=== PATIENT | female | born 1940 | race Caucasian/White ===

== ENCOUNTER 2017-03-08 14:58 | Emergency (ER) | payer MEDICARE ==
[~2017-03-08] VITALS: Ht 160 cm; Wt 56.7 kg
[~2017-03-08 14:58] MED LIST: ACET-168 PO; ACET325T38 PO; APIX5TAB PO; ASPI-983 PO; CALC10009 PO; CEFP500T4 PO; CLON0.5T3 PO; CLON1TAB3; CRAN250C2 PO; DOCU100C37 PO; ESOM40CA52 PO; FLAX100011 PO; HYDR-3812 PO; IBUP-30 PO; KLONOPIN; LISI-556 PO; METO-270 PO; METOPROLOL; MTP25TSR; MULT-974 PO; NEXIUM; NF-ESOM40C; NF-ESOM40C PO; ONDAN4ODT PO; ONDN4T PO; POLY17PO23 PO; PRD20T PO; PRIM1POW MC; PRIM50TA PO; PRM25T; PROP40TA5 PO; SERT100T; SERT100T8 PO; SERT50TA PO; SIMV40TA2 PO; SOLI5TAB4 PO; SUCR1TAB PO; SUCR1TAB36 PO; TRIA5PAS3 TOP; TYLENOL; [UNRECOGNIZED DRUG - OTHER]; [UNRECOGNIZED DRUG - OTHER]; tylenol pm
--- NOTE | 2017-03-08 16:07 | ED Hip Pain/Injury ---
General Chief Complaint: Hip/Pelvic Problems Stated Complaint: BOTH HIP PAIN Nursing Triage Note: c/o bilateral hip and back pain. Hx of possible constipation. Pt has a long history of psychiatric illness and has had a recent regression. States she hasn't been eating or taking her medicines. Source: patient Exam Limitations: no limitations History of Present Illness Time seen by provider: 16:06 Initial Comments To ER with bilateral hip pain, left greater than right, possible constipation. Family states that she's not been getting around well or taking her psychiatric medications as she should be. She was at [facility] from [facility] after not taking her psychiatric medications for about 3 weeks at that time. One of her son states that she has not been taking her medications as she should be, she is taking them but somewhat intermittently. Timing/Duration: constant Severity: moderate Allergies and Home Medications Allergies Coded Allergies: morphine (Verified Allergy, Unknown, 04/28/16) can take hydrocodone per pt Home Medications Acetaminophen 500 Mg Tablet, 500 MG PO Q4H PRN for PAIN/FEVER, (Reported) Apixaban 5 Mg Tablet, 5 MG PO BID, #60 Ref 1 Prescribed by: FRED GIBBONS on 05/02/16 1102 Aspirin 81 Mg Tablet.dr, 81 MG PO DAILY, (Reported) Cranberry Extract 250 Mg Capsule, 2 CAP PO DAILY, (Reported) Docusate Sodium 100 Mg Capsule, 100 MG PO HS, #30 Prescribed by: FRANCE NAVARRO on 05/11/16 0920 Esomeprazole Magnesium 40 Mg Capsule.dr, 40 MG PO DAILY, (Reported) Flaxseed 1,000 Mg Capsule, 1,000 MG PO DAILY, (Reported) Hydrocodone/Acetaminophen 1 Each Tablet, 1-2 TAB PO Q4H PRN for SEVERE PAIN, #60 Prescribed by: FRANCE NAVARRO on 05/11/16 0920 Ibuprofen 200 Mg Tablet, 200 MG PO Q6H PRN for PAIN/FEVER, (Reported) Lisinopril 5 Mg Tablet, 5 MG PO DAILY, (Reported) Multivitamin 1 Each Tablet, 1 TAB PO DAILY, (Reported) Ondansetron HCl 4 Mg Tab, 4 MG PO Q8H PRN for NAUSEA/VOMITING, (Reported) Polyethylene Glycol 3350 17 Gm Powd.pack, 17 GM PO DAILY, #1 Prescribed by: FRANCE NAVARRO on 05/11/16 0920 Primidone 50 Mg Tablet, 50 MG PO HS, (Reported) Sertraline HCl 100 Mg Tablet, 100 MG PO DAILY, (Reported) Sucralfate 1 Gm Tablet, 1 GM PO QID, (Reported) Constitutional: see HPI EENTM: see HPI Respiratory: no symptoms reported Cardiovascular: no symptoms reported Genitourinary: no symptoms reported Musculoskeletal: see HPI Skin: no symptoms reported Psychiatric/Neurological: No Symptoms Reported Past Magazob-Wufhcb-Echiwb Hx Patient Social History Alcohol Use: Denies Use Recreational Drug Use: No Recent Foreign Travel: No Contact w/Someone Who Travel: No Recent Infectious Disease Expo: No Recent Hopitalizations: Yes (anemia-unsure of date) Immunizations Up To Date Tetanus Booster (TDap): Unknown Date of Pneumonia Vaccine: April 01, 2009 Date of Influenza Vaccine: Sep 01, 2013 Surgeries HX Surgeries: Yes Surgeries: Breast, Cardiac, CABG, Joint Replacement, Open Heart Surgery, Orthopedic Respiratory Hx Respiratory Disorders: Yes (WHOOPING COUGH CHILD) Cardiovascular Hx Cardiac Disorders: Yes (CABG) Cardiac Disorders: Coronary Artery Disease, High Cholesterol, Hypertension Neurological Hx Neurological Disorders: No Reproductive System Hx Reproductive Disorders: Yes Sexually Transmitted Disease: No HIV/AIDS: No Female Reproductive Disorders: Denies Genitourinary Hx Genitourinary Disorders: Yes Genitourinary Disorders: Bladder Infection, UTI-Chronic Gastrointestinal Hx Gastrointestinal Disorders: Yes Gastrointestinal Disorders: Gastroesophageal Reflux Musculoskeletal Hx Musculoskeletal Disorders: Yes ("CRACKED PELVIS", RIGHT HIP REPLACEMENT, LEFT HIP FRACTURE) Musculoskeletal Disorders: Arthritis, Fractures Endocrine Hx Endocrine Disorders: No HEENT HX ENT Disorders: No Cancer Hx Cancer: No Psychosocial Hx Psychiatric Problems: Yes Behavioral Health Disorders: Anxiety, Depression Integumentary HX Skin/Integumentary Disorder: Yes Skin/Integumentary Disorders: Pruritis Blood Transfusions Hx Blood Disorders: No Adverse Reaction to a Blood Tr: No Family Medical History Family Medial History: Cardiovascular disease 19 MOTHER Diabetes mellitus G8 BROTHER Hypercholesterolemia 19 FATHER Physical Exam Vital Signs Vital Sign - Last 12Hours 03/08/17 15:10 Temp 97.5 Pulse 70 Resp 16 B/P (MAP) 109/86 Pulse Ox 96 O2 Delivery Room Air Capillary Refill : Less Than 3 Seconds General Appearance: No Apparent Distress, WD/WN, Anxious HEENT: PERRL/EOMI, TMs Normal Neck: Full Range of Motion, Normal Inspection Cardiovascular: Regular Rate, Rhythm Respiratory: No Accessory Muscle Use, No Respiratory Distress Gastrointestinal: Non Tender, Soft Neurologic/Psychiatric: Alert, Oriented x3, No Motor/Sensory Deficits Skin: Normal Color, Warm/Dry Progress/Results/Core Measures Results/Orders Lab Results Laboratory Tests Test 03/08/17 16:23 Range/Units White Blood Count 6.6 4.3-11.0 10^3/uL Red Blood Count 4.92 4.35-5.85 10^6/uL Hemoglobin 15.2 11.5-16.0 G/DL Hematocrit 46 35-52 % Mean Corpuscular Volume 93 80-99 FL Mean Corpuscular Hemoglobin 31 25-34 PG Mean Corpuscular Hemoglobin Concent 33 32-36 G/DL Red Cell Distribution Width 13.6 10.0-14.5 % Platelet Count 264 130-400 10^3/uL Mean Platelet Volume 10.9 H 7.4-10.4 FL Neutrophils (%) (Auto) 66 42-75 % Lymphocytes (%) (Auto) 25 12-44 % Monocytes (%) (Auto) 9 0-12 % Eosinophils (%) (Auto) 0 0-10 % Basophils (%) (Auto) 1 0-10 % Neutrophils # (Auto) 4.3 1.8-7.8 X 10^3 Lymphocytes # (Auto) 1.6 1.0-4.0 X 10^3 Monocytes # (Auto) 0.6 0.0-1.0 X 10^3 Eosinophils # (Auto) 0.0 0.0-0.3 10^3/uL Basophils # (Auto) 0.0 0.0-0.1 10^3/uL Sodium Level 141 135-145 MMOL/L Potassium Level 4.1 3.6-5.0 MMOL/L Chloride Level 104 98-107 MMOL/L Carbon Dioxide Level 20 L 21-32 MMOL/L Anion Gap 17 H 5-14 MMOL/L Blood Urea Nitrogen 22 H 7-18 MG/DL Creatinine 0.85 0.60-1.30 MG/DL Estimat Glomerular Filtration Rate > 60 BUN/Creatinine Ratio 26 Glucose Level 74 70-105 MG/DL Calcium Level 9.7 8.5-10.1 MG/DL Total Bilirubin 0.9 0.1-1.0 MG/DL Aspartate Amino Transf (AST/SGOT) 25 5-34 U/L Alanine Aminotransferase (ALT/SGPT) 17 0-55 U/L Alkaline Phosphatase 64 40-136 U/L Total Protein 7.3 6.4-8.2 G/DL Albumin 4.4 3.2-4.5 G/DL Thyroid Stimulating Hormone (TSH) 0.64 0.35-4.94 UIU/ML My Orders Orders - VAN GILLETTE APRN Cbc With Automated Diff (03/08/17 15:59) Comprehensive Metabolic Panel (03/08/17 15:59) Thyroid Stimulating Hormone (03/08/17 15:59) Ua Culture If Indicated (03/08/17 16:05) Hydrocodone/Apap 5/325 Tablet (Lortab 5 (03/08/17 16:15) Acute Abd Series (03/08/17 16:31) Ct Head Wo (03/08/17 17:29) Ekg Tracing (03/08/17 17:29) Vital Signs/I&O Vital Sign - Last 12Hours 03/08/17 15:10 Temp 97.5 Pulse 70 Resp 16 B/P (MAP) 109/86 Pulse Ox 96 O2 Delivery Room Air Blood Pressure Mean: 94 Diagnostic Imaging Diagonstic Imaging: CT Comments NAME: AVE PEPE Breanne MED REC#: [id number] PT STATUS: REG ER : 1940 PHYSICIAN: VAN GILLETTE APRN ADMIT DATE: 03/08/17/ER Draft Date of Exam:03/08/17 CT HEAD WO PROCEDURE: CT head without contrast. TECHNIQUE: Multiple contiguous axial images were obtained through the brain without the use of intravenous contrast. INDICATION: Altered mental status. FINDINGS: The ventricles are normal in size, shape and position. There are no masses or hemorrhages. There are no extra-axial fluid collections. IMPRESSION: No acute abnormality is seen in the head. Dictated on workstation # [id number] Dict: 03/08/176 Trans: 03/08/171800 [facility] [id number] Interpreted by: MEI POZO Electronically signed by: Departure Communication Progress Notes 1615- patient refuses blood draw and to provide urine sample. Offered pain medication and medication to help her relax and she refused both of those. She is not interested in going back to [facility] 1751-after discussion with her brother that these symptoms were psychiatric in origin, I did recommend going back to [facility] unit. He agrees with this plan and has convinced Ave of this as well. Ngozi from [facility] behavioral health unit is in route to the hospital to screen the patient. Impression Impression: Primary Impression: Anxiety Disposition: 01 HOME, SELF-CARE Condition: Stable Departure-Patient Inst. Decision time for Depature: 16:16 Referrals: [facility] (PCP/Family) Primary Care Physician Patient Instructions: Anxiety, Adult (DC) Add. Discharge Instructions: 1. Call your doctor on Saturday All discharge instructions reviewed with patient and/or family. Voiced understanding. VAN GILLETTE APRN Mar 08, 2017 16:07
[2017-03-08] MEDS ORDERED: HYDROcodone/APAP 5 MG/325 MG (LORTAB) TAB PO ONE (16:15)
[2017-03-08 16:30] LABS: BASOPHILS % (AUTO) 1 % (0-10); EOSINOPHILS % (AUTO) 0 % (0-10); LYMPHOCYTES # (AUTO) 1.6 X 10^3 (1.0-4.0); LYMPHOCYTES % (AUTO) 25 % (12-44); MEAN CORPUSCULAR HEMOGLOBIN 31 PG (25-34); MEAN CORPUSCULAR HGB CONC 33 G/DL (32-36); MEAN CORPUSCULAR VOLUME 93 FL (80-99); MEAN PLATELET VOLUME 10.9 FL (7.4-10.4); MONOCYTES # (AUTO) 0.6 X 10^3 (0.0-1.0); MONOCYTES % (AUTO) 9 % (0-12); NEUTROPHILS # (AUTO) 4.3 X 10^3 (1.8-7.8); NEUTROPHILS % (AUTO) 66 % (42-75); PLATELET COUNT 264 10^3/uL (130-400); RED BLOOD COUNT 4.92 10^6/uL (4.35-5.85); RED CELL DISTRIBUTION WIDTH 13.6 % (10.0-14.5); WHITE BLOOD COUNT 6.6 10^3/uL (4.3-11.0)
--- NOTE | 2017-03-08 16:51 | Diagnostic Imaging Report ---
Indication: Abdominal pain The upright chest shows no acute abnormality. Supine and upright views of the abdomen shows a nonspecific, nonobstructive bowel gas pattern. There is no bowel wall edema. There is no free intraperitoneal air. No mass or calculus is seen. There is no acute bony abnormality. Impression: No acute abnormality is seen. Dictated by: Dictated on workstation # [id number]
[2017-03-08 16:55] LABS: ALANINE AMINOTRANSFERASE 17 U/L (0-55); ALBUMIN 4.4 G/DL (3.2-4.5); ANION GAP 17 MMOL/L (5-14); ASPARTATE AMINO TRANSFERASE 25 U/L (5-34); BILIRUBIN,TOTAL 0.9 MG/DL (0.1-1.0); BLOOD UREA NITROGEN 22 MG/DL (7-18); BUN/CREATININE RATIO 26; CALCIUM 9.7 MG/DL (8.5-10.1); CARBON DIOXIDE 20 MMOL/L (21-32); CHLORIDE 104 MMOL/L (98-107); CREATININE SERUM 0.85 MG/DL (0.60-1.30); GFR ESTIMATED > 60; GLUCOSE 74 MG/DL (70-105); POTASSIUM 4.1 MMOL/L (3.6-5.0); SODIUM 141 MMOL/L (135-145); TOTAL PROTEIN 7.3 G/DL (6.4-8.2)
[2017-03-08 17:14] LABS: THYROID STIMULATING HORMONE 0.64 UIU/ML (0.35-4.94)
--- NOTE | 2017-03-08 18:01 | Diagnostic Imaging Report ---
PROCEDURE: CT head without contrast. TECHNIQUE: Multiple contiguous axial images were obtained through the brain without the use of intravenous contrast. INDICATION: Altered mental status. FINDINGS: The ventricles are normal in size, shape and position. There are no masses or hemorrhages. There are no extra-axial fluid collections. IMPRESSION: No acute abnormality is seen in the head. Dictated by: Dictated on workstation # [id number]
[2017-03-08 19:15] VITALS: BP 118/70
--- OUTSIDE RECORDS SUMMARY | 2017-04-11 22:12 | XMS REPORT ---
Author Author WOLF AGUIRRE Organization eClinicalWorks Address Unknown Phone Unavailable Care Team Providers Care Zinc Furnace Charger Name Role Phone WOLF AGUIRRE CP Unavailable Allergies No Known Allergies Problems Problem Type Condition Code Onset Dates Condition Status Problem Generalized anxiety disorder F41.1 Active Problem Hypertension 401.9 Active Problem CAD (coronary artery disease) I25.10 Active Problem Unspecified cardiac dysrhythmia 427.9 Active Medications No Known Medications Results No Known Results Summary Purpose eClinicalWorks Submission
--- OUTSIDE RECORDS SUMMARY | 2017-04-11 22:12 | XMS REPORT ---
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 Problem Constipation, unspecified constipation type K59.00 Active Assessment Generalized anxiety disorder F41.1 Active Problem Dysthymic disorder F34.1 Active Problem Hypertension I10 Active Problem Failure to thrive in adult R62.7 Active Problem Generalized anxiety disorder F41.1 Active Problem Sundowning F05 Active Problem CAD (coronary artery disease) I25.10 Active Problem Encounter for dental examination Z01.20 Active Medications Medication Code System Code Instructions Start Date End Date Status Dosage Sucralfate [facility] 38785828420 1 GM DISSOLVE ONE TABLET IN 10 MLS OF WATER AND DRINK BEFORE MEALS THREE TIMES DAILY AND BEFORE BEDTIME Cranberry Extract [facility] 13907-[address]563 250 MG Orally not defined Lisinopril [facility] 49721827190 5 MG TAKE 1 TABLET BY MOUTH ONCE DAILY Sertraline HCl [facility] [address]-61 50 mg Orally Once a day 1 tablet Acetaminophen Extra Strength [facility] [address]-80 500 MG Orally every 4 hrs 1 tablet as needed Aspirin [facility] [address]-86 81 MG Orally Once a day from the hospital Jul 1 tablet Carafate [facility] 21904493620 1 TAKE ONE TABLET BY MOUTH FOUR TIMES A DAY Multivitamin Adult [facility] 37[address] - Orally not defined Primidone [facility] 54273613740 50 MG Oral Jul 16, 2016 TAKE ONE TABLET BY MOUTH AT BEDTIME Ibuprofen [facility] [address]-67 200 MG Orally Q6H as needed not defined Procedures Procedure Coding System Code Date Office Visit, Est Pt., Level 3 CPT-4 00354 Oct 08, 2016 [facility] VISIT ESTABLISHED PATIENT CPT-4 G0467 Oct 08, 2016 Vital Signs Date/Time: Oct 08, 2016 Cardiac Monitoring Heart Rate 73 bpm Weight 118.3 lbs Height 64 in BMI 20.30 Index Blood Pressure Diastolic 72 mmHg Blood Pressure Systolic 112 mmHg Results No Known Results Summary Purpose eClinicalWorks Submission
--- OUTSIDE RECORDS SUMMARY | 2017-04-11 22:13 | XMS REPORT ---
Author Author WOLF AGUIRRE [facility] eClinicalWorks Address Unknown Phone Unavailable Care Team Providers Care Food Tray Assembler Name Role Phone WOLF AGUIRRE CP Unavailable Allergies, Adverse Reactions, Alerts Substance Reaction Event Type Clindamycin HCl Info Not Available Drug Allergy Problems Problem Type Condition Code Onset Dates Condition Status Problem Hypertension 401.9 Active Problem Unspecified cardiac dysrhythmia 427.9 Active Problem Generalized anxiety disorder F41.1 Active Assessment Rash and other nonspecific skin eruption R21 Active Assessment Yeast vaginitis B37.3 Active Medications Medication Code System Code Instructions Start Date End Date Status Dosage Klonopin [facility] [address]-19 0.5 MG Orally Once a day Jan 24, 2015 1 tablet by Oral route 1 time per day at bedtime Sertraline HCl [facility] [address]-15 100 MG Orally Once a day 1 tablet Carafate [facility] [address]-49 1 GM Orally Twice a day 1 tablet on an empty stomach Primidone [facility] [address]-30 50 MG February 09, 2015 0.5 tablet by Oral route 1 time per day at bedtime for tremors Triamcinolone Acetonide [facility] [address]-61 0.5 % Externally Twice a day Sep 10, 2015 1 application to affected area Aspirin [facility] [address]-32 81 MG Orally Once a day from the hospital Jul 1 tablet Nexium [facility] 38295983927 40 TAKE ONE CAPSULE BY MOUTH DAILY Diflucan [facility] [address]-67 150 MG Orally Once a day Sep 10, 2015 1 tablet Simvastatin [facility] 33079363603 40 TAKE ONE TABLET BY MOUTH EVERY EVENING Carafate [facility] [address]-95 1 GM Orally 4 times a day from the [facility] Jul 27, 2015 1 tablet on an empty stomach Procedures Procedure Coding System Code Date Office Visit, Est Pt., Level 3 CPT-4 60032 Sep 10, 2015 [facility] VISIT ESTABLISHED PATIENT CPT-4 G0467 Sep 10, 2015 Vital Signs Date/Time: Sep 10, 2015 Temperature 98.2 F Weight 131.1 lbs Height 64 in BMI 22.50 Index Blood Pressure Diastolic 82 mmHg Blood Pressure Systolic 130 mmHg Cardiac Monitoring Heart Rate 80 bpm Results No Known Results Summary Purpose eClinicalWorks Submission
--- OUTSIDE RECORDS SUMMARY | 2017-04-11 22:13 | XMS REPORT ---
Author Author WOLF AGUIRRE Organization e[employer] Address Unknown Phone Unavailable Care Team Providers Care Clamshell Engineer Name Role Phone WOLF AGUIRRE CP Unavailable Allergies, Adverse Reactions, Alerts Substance Reaction Event Type N.K.D.A. Info Not Available Non Drug Allergy Problems Problem Type Condition ICD-9 Code Onset Dates Condition Status Assessment Rash 782.1 Active Problem Unspecified cardiac dysrhythmia 427.9 Active Medications Medication Code System Code Instructions Start Date End Date Status Dosage Klonopin [facility] [address]-38 0.5 MG Orally Once a day Jan 24, 2015 1 tablet by Oral route 1 time per day at bedtime Simvastatin [facility] 87742677249 40 TAKE ONE TABLET BY MOUTH EVERY EVENING Sertraline HCl [facility] [address]-69 100 MG Orally Once a day 1 tablet Primidone [facility] [address]-91 50 MG February 09, 2015 0.5 tablet by Oral route 1 time per day at bedtime for tremors PredniSONE [facility] [address]-89 20 MG Orally Once a day Jul 21, 2015 Jul 26, 2015 1 tablet with food or milk Carafate [facility] [address]-05 1 GM Orally Twice a day 1 tablet on an empty stomach Nexium [facility] 96434084156 40 TAKE ONE CAPSULE BY MOUTH DAILY Procedures Procedure Coding System Code Date Office Visit, Est Pt., Level 3 CPT-4 92100 Jul 21, 2015 [facility] VISIT ESTABLISHED PATIENT CPT-4 G0467 Jul 21, 2015 Vital Signs Date/Time: Jul 21, 2015 Temperature 97.8 F Weight 133.4 lbs Height 64 in BMI 22.90 Index Blood Pressure Diastolic 76 mmHg Blood Pressure Systolic 118 mmHg Cardiac Monitoring Heart Rate 72 bpm Results No Known Results Summary Purpose eClinicalWorks Submission
--- OUTSIDE RECORDS SUMMARY | 2017-04-11 22:13 | XMS REPORT ---
Author Author MARIA LUISA TAN [facility] eClinicalWorks Address Unknown Phone Unavailable Care Team Providers Care Plastics Fabricator And Assembler Name Role Phone MARIA LUISA TAN CP Unavailable Allergies, Adverse Reactions, Alerts Substance Reaction Event Type Clindamycin HCl Info Not Available Drug Allergy Problems Problem Type Condition Code Onset Dates Condition Status Problem Generalized anxiety disorder F41.1 Active Problem Hypertension 401.9 Active Problem CAD (coronary artery disease) I25.10 Active Problem Unspecified cardiac dysrhythmia 427.9 Active Assessment Dental examination Z01.20 Active Medications Medication Code System Code Instructions Start Date End Date Status Dosage Klonopin [facility] [address]-62 0.5 MG Orally Once a day Jan 24, 2015 1 tablet by Oral route 1 time per day at bedtime Carafate [facility] [address]-56 1 GM Orally Twice a day 1 tablet on an empty stomach Simvastatin [facility] 52490481593 40 TAKE ONE TABLET BY MOUTH EVERY EVENING Lisinopril [facility] 40605799764 5 MG TAKE 1 TABLET BY MOUTH ONCE DAILY Amoxicillin [facility] [address]-84 500 MG Orally Every 6 hours Oct 24, 2015 Nov 03, 2015 1 capsule Nexium [facility] 35720262154 40 TAKE ONE CAPSULE BY MOUTH DAILY Triamcinolone Acetonide [facility] [address]-01 0.5 % Externally Twice a day Sep 10, 2015 1 application to affected area Carafate [facility] [address]-13 1 GM Orally 4 times a day from the hospital Jul 27, 2015 1 tablet on an empty stomach [place] [facility] [address]-17 5-325 MG Orally every 6 hrs Oct 24, 2015 Oct 28, 2015 1 tablet as needed Sertraline HCl [facility] [address]-90 100 MG Orally Once a day 1 tablet Sucralfate [facility] 27081160798 1 GM DISSOLVE ONE TABLET IN 10 MLS OF WATER AND DRINK BEFORE MEALS THREE TIMES DAILY AND BEFORE BEDTIME Aspirin [facility] [address]-69 81 MG Orally Once a day from the hospital Jul 1 tablet Primidone [facility] 76689603677 50 MG TAKE 1/2 TABLET BY MOUTH AT BEDTIME FOR TREMORS Procedures Procedure Coding System Code Date INTRAORL-PERIAPICAL 1 FILM 89244 CPT-4 D0220 Oct 24, 2015 LTD ORAL EVALUATION - PROBLEM FOCUS CPT-4 D0140 Oct 24, 2015 Vital Signs Date/Time: Oct 24, 2015 Blood Pressure Diastolic 87 mmHg Blood Pressure Systolic 114 mmHg Results No Known Results Summary Purpose eClinicalWorks Submission
--- OUTSIDE RECORDS SUMMARY | 2017-04-11 22:13 | XMS REPORT ---
Author Author LIN CANO [facility] eClinicalWorks Address Unknown Phone Unavailable Care Team Providers Care Lithographic Proofer Name Role Phone LIN CANO CP Unavailable Allergies, Adverse Reactions, Alerts Substance Reaction Event Type Clindamycin HCl Info Not Available Drug Allergy Problems Problem Type Condition Code Onset Dates Condition Status Problem Generalized anxiety disorder F41.1 Active Problem Hypertension 401.9 Active Problem CAD (coronary artery disease) I25.10 Active Problem Unspecified cardiac dysrhythmia 427.9 Active Assessment N&V (nausea and vomiting) R11.2 Active Medications Medication Code System Code Instructions Start Date End Date Status Dosage Sucralfate [facility] 51425937661 1 GM DISSOLVE ONE TABLET IN 10 MLS OF WATER AND DRINK BEFORE MEALS THREE TIMES DAILY AND BEFORE BEDTIME Sertraline HCl [facility] [address]-74 100 MG Orally Once a day 1 tablet Carafate [facility] [address]-65 1 GM Orally 4 times a day from the [facility] Jul 27, 2015 1 tablet on an empty stomach Nexium [facility] [address]-88 Orally Once a day not defined Ibuprofen NDC 0 not defined Primidone [facility] 17813519626 50 MG TAKE 1/2 TABLET BY MOUTH AT BEDTIME FOR TREMORS Aspirin [facility] [address]-22 81 MG Orally Once a day from the [facility] Jul 1 tablet Klonopin [facility] [address]-62 0.5 MG Orally Once a day Jan 24, 2015 1 tablet by Oral route 1 time per day at bedtime Zofran [facility] [address]-49 4 MG Orally prn n/v; q 8 hours Dec 15, 2015 1 tablet Tylenol [facility] [address]-55 not defined Lisinopril [facility] 16441915716 5 MG TAKE 1 TABLET BY MOUTH ONCE DAILY Procedures Procedure Coding System Code Date [facility] VISIT ESTABLISHED PATIENT CPT-4 G0467 Dec 15, 2015 Office Visit, Est Pt., Level 3 CPT-4 03358 Dec 15, 2015 URINALYSIS, AUTO, W/O SCOPE CPT-4 33989 Dec 15, 2015 Vital Signs Date/Time: Dec 15, 2015 Temperature 98.2 F Weight 133.4 lbs Height 64 in BMI 22.90 Index Blood Pressure Diastolic 82 mmHg Blood Pressure Systolic 140 mmHg Cardiac Monitoring Heart Rate 64 bpm Results Name Result Date Reference Range Unit Abnormality Flag UA LONG DIP (IN HOUSE) ----ZAIDA Negative 20151215 ----NIT Negative 20151215 ----Exp date 20151215 ----Lot # [id number] ----SG 1.010 20151215 ----KET Negative 20151215 ----ENMA Negative 20151215 ----GLU Negative 20151215 ----Odor no 20151215 ----pH 5.0 20151215 ----BLO Trace-intact 20151215 ----URO 0.2 20151215 ----Protein Negative 20151215 ----Lot # [id number] ----Exp date 20151215 ----Clarity clear 20151215 ----Color yellow 20151215 Summary Purpose eClinicalWorks Submission
--- OUTSIDE RECORDS SUMMARY | 2017-04-11 22:13 | XMS REPORT ---
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 Name Role Phone WOLF AGUIRRE CP Unavailable Allergies, Adverse Reactions, Alerts Substance Reaction Event Type Morphine Sulfate Info Not Available Drug Allergy Clindamycin HCl Info Not Available Drug Allergy Problems Problem Type Condition Code Onset Dates Condition Status Assessment Dysuria R30.0 Active Assessment Dysthymic disorder F34.1 Active Assessment Acute vaginitis N76.0 Active Assessment Vaginal yeast infection B37.3 Active Problem Hypertension I10 Active Problem CAD (coronary artery disease) I25.10 Active Problem Dysthymic disorder F34.1 Active Problem Sundowning F05 Active Problem Constipation, unspecified constipation type K59.00 Active Problem Encounter for dental examination Z01.20 Active Problem Generalized anxiety disorder F41.1 Active Medications Medication Code System Code Instructions Start Date End Date Status Dosage Acetaminophen Extra Strength [facility] [address]-87 500 MG Orally every 4 hrs 1 tablet as needed Cranberry Extract [facility] 86359-65198 250 MG Orally not defined Remeron [facility] [address]-61 15 MG Orally Once a day Sep 11, 2016 1 tablet at bedtime Carafate [facility] 76567396360 1 TAKE ONE TABLET BY MOUTH FOUR TIMES A DAY Primidone [facility] [address]-13 50 mg Orally Once a day at bedtime April 05, 2016 as directed Sucralfate [facility] 25295802405 1 GM DISSOLVE ONE TABLET IN 10 MLS OF WATER AND DRINK BEFORE MEALS THREE TIMES DAILY AND BEFORE BEDTIME Multivitamin Adult [facility] [address] - Orally not defined Diflucan [facility] [address]-98 150 MG Orally one time. May repeat in 3 days if symptoms persist. Sep 15, 2016 1 tablet Lisinopril [facility] 45592035292 5 MG TAKE 1 TABLET BY MOUTH ONCE DAILY Aspirin [facility] [address]-53 81 MG Orally Once a day from the hospital Jul 1 tablet Ibuprofen [facility] [address]-54 200 MG Orally Q6H as needed not defined Diflucan [facility] [address]-77 150 MG Orally today Sep 11, 2016 1 tablet Myrbetriq [facility] [address]-44 25 MG Orally Once a day Jul 31, 2016 1 tablet Amitiza [facility] [address]-79 8 MCG Orally Twice a day Jul 31, 2016 1 capsule with food Procedures Procedure Coding System Code Date LAB NOT BILLED BY [facility] CPT-4 NOBLL Sep 11, 2016 [facility] VISIT ESTABLISHED PATIENT CPT-4 G0467 Sep 11, 2016 URINALYSIS, AUTO, W/O SCOPE CPT-4 66431 Sep 11, 2016 Office Visit, Est Pt., Level 3 CPT-4 08723 Sep 11, 2016 Vital Signs Date/Time: Sep 11, 2016 Cardiac Monitoring Heart Rate 64 bpm Weight 119.3 lbs Height 64 in BMI 20.48 Index Blood Pressure Diastolic 70 mmHg Blood Pressure Systolic 108 mmHg Results Name Result Date Reference Range Unit Abnormality Flag UA LONG DIP (IN HOUSE) ----ZAIDA 1+ 20160911 ----NIT negative 20160911 ----Exp date 20160911 ----Lot # [id number] ----SG 1.015 20160911 ----KET negative 20160911 ----ENMA negative 20160911 ----GLU negative 20160911 ----Odor none 20160911 ----pH 6.0 20160911 ----BLO trace 20160911 ----URO 0.2 20160911 ----Protein negative 20160911 ----Lot # [id number] ----Exp date 20160911 ----Clarity clear 20160911 ----Color yellow 20160911 CULTURE, URINE ----Urine Culture, Routine Final report [id number] Summary Purpose eClinicalWorks Submission
--- OUTSIDE RECORDS SUMMARY | 2017-04-11 22:17 | XMS REPORT | Continuity of Care Document ---
Author Author [facility] Address Unknown Phone Unavailable Allergies Active Description Code Type Severity Reaction Onset Reported/Identified Relationship to Patient Clinical Status Yes NKANo Known Allergies NKA Miscellaneous Allergy Unknown N/ A 10/07/2006 Yes morphine [id number] Drug Allergy Unknown N/A 04/28/2016 Medications Problems Date Dx Coded Attending Type Code Diagnosis Diagnosed By 09/01/2008 462 Pharyngitis Acute 09/01/2008 787.91 Diarrhea 09/01/2008 462 Pharyngitis Acute 09/01/2008 787.91 Diarrhea 09/01/2008 KAELA CALHOUN DDS 462 Pharyngitis Acute 09/01/2008 KAELA CALHOUN DDS 787.91 Diarrhea 09/01/2008 HUSAM ORLANDO APRN 462 Pharyngitis Acute 09/01/2008 HUSAM ORLANDO APRN 787.91 Diarrhea 09/01/2008 WOLF AGUIRRE APRN 462 Pharyngitis Acute 09/01/2008 WOLF AGUIRRE APRN 787.91 Diarrhea 09/01/2008 462 Pharyngitis Acute 09/01/2008 787.91 Diarrhea 09/01/2008 MORAIMA NICOLE DO 462 Pharyngitis Acute 09/01/2008 MORAIMA NICOLE DO 787.91 Diarrhea 09/01/2008 462 Pharyngitis Acute 09/01/2008 787.91 Diarrhea 09/01/2008 462 Pharyngitis Acute 09/01/2008 787.91 Diarrhea 09/01/2008 462 Pharyngitis Acute 09/01/2008 787.91 Diarrhea 09/01/2008 462 Pharyngitis Acute 09/01/2008 787.91 Diarrhea 09/01/2008 JUAREZ GREEN DDS 462 Pharyngitis Acute 09/01/2008 JUAREZ GREEN DDS 787.91 Diarrhea 09/01/2008 NORMA DDS, JUAREZ M 462 Pharyngitis Acute 09/01/2008 NORMA DDS, JUAREZ M 787.91 Diarrhea 09/01/2008 NICOLE DO, MORAIMA K 462 Pharyngitis Acute 09/01/2008 NICOLE DO, MORAIMA K 787.91 Diarrhea 09/01/2008 TIMOTHY MAP PLOTTER, WOLF S 462 Pharyngitis Acute 09/01/2008 TIMOTHY MAP PLOTTER, WOLF S 787.91 Diarrhea 09/01/2008 TIMOTHY MAP PLOTTER, WOLF S 462 Pharyngitis Acute 09/01/2008 TIMOTHY MAP PLOTTER, WOLF S 787.91 Diarrhea 09/01/2008 TIMOTHY MAP PLOTTER, WOLF S 462 Pharyngitis Acute 09/01/2008 TIMOTHY MAP PLOTTER, WOLF S 787.91 Diarrhea 09/01/2008 TIMOTHY MAP PLOTTER, WOLF S 462 Pharyngitis Acute 09/01/2008 TIMOTHY MAP PLOTTER, WOLF S 787.91 Diarrhea 09/01/2008 TIMOTHY MAP PLOTTER, WOLF S 462 Pharyngitis Acute 09/01/2008 TIMOTHY MAP PLOTTER, WOLF S 787.91 Diarrhea 09/01/2008 WHITE DDS, MELISSA J 462 Pharyngitis Acute 09/01/2008 WHITE DDS, MELISSA J 787.91 Diarrhea 09/01/2008 TAN DDS, MARIA LUISA 462 Pharyngitis Acute 09/01/2008 TAN DDS, MARIA LUISA 787.91 Diarrhea 09/01/2008 HUSAM ORLANDO APRN T 462 Pharyngitis Acute 09/01/2008 HUSAM ORLANDO APRN T 787.91 Diarrhea 09/01/2008 TIMOTHY MAP PLOTTER, WOLF S 462 Pharyngitis Acute 09/01/2008 TIMOTHY MAP PLOTTER, WOLF S 787.91 Diarrhea 09/01/2008 TIMOTHY MAP PLOTTER, WOLF S 462 Pharyngitis Acute 09/01/2008 TIMOTHY MAP PLOTTER, WOLF S 787.91 Diarrhea 09/01/2008 CASSIE DOMINGUEZ, KADY Raymundo 462 Pharyngitis Acute 09/01/2008 CASSIE DOMINGUEZ, KADY Raymundo 787.91 Diarrhea 09/01/2008 TIMOTHY MAP PLOTTER, WOLF S 462 Pharyngitis Acute 09/01/2008 TIMOTHY MAP PLOTTER, WOLF S 787.91 Diarrhea 09/01/2008 TIMOTHY MAP PLOTTER, WOLF S 462 Pharyngitis Acute 09/01/2008 TIMOTHY GAINESN, WOLF S 787.91 Diarrhea 09/01/2008 TAN DDS, MARIA LUISA 462 Pharyngitis Acute 09/01/2008 TAN DDS, MARIA LUISA 787.91 Diarrhea 09/01/2008 MAX DDS, KATHYA Chopra 462 Pharyngitis Acute 09/01/2008 MAX DDS, KATHYA Chopra 787.91 Diarrhea 02/11/2009 695.3 Rosacea 02/11/2009 695.3 Rosacea 02/11/2009 LJ DDS, KAELA Rdz 695.3 Rosacea 02/11/2009 HUSAM ORLANDO APRN 695.3 Rosacea 02/11/2009 HAFSA AGUIRRE APRNNDA S 695.3 Rosacea 02/11/2009 695.3 Rosacea 02/11/2009 NICOLE MORAIMA LOCKETT 695.3 Rosacea 02/11/2009 695.3 Rosacea 02/11/2009 695.3 Rosacea 02/11/2009 695.3 Rosacea 02/11/2009 695.3 Rosacea 02/11/2009 NORMA DDS, JUAREZ Pierre 695.3 Rosacea 02/11/2009 NORMA DDS, JUAREZ Pierre 695.3 Rosacea 02/11/2009 NICOLE MORAIMA LOCKETT 695.3 Rosacea 02/11/2009 TIMOTHY KAN, WOLF S 695.3 Rosacea 02/11/2009 TIMOTHY KAN, WOLF S 695.3 Rosacea 02/11/2009 TIMOTHY KAN, WOLF S 695.3 Rosacea 02/11/2009 TIMOTHY KAN, WOLF S 695.3 Rosacea 02/11/2009 TIMOTHY KAN, WOLF S 695.3 Rosacea 02/11/2009 GAGANDEEP DDS, MELISSA Raymundo 695.3 Rosacea 02/11/2009 BRITNEY DDS, MARIA LUISA 695.3 Rosacea 02/11/2009 HUSAM ORLANDO APRN 695.3 Rosacea 02/11/2009 TIMOTHY KAN, WOLF S 695.3 Rosacea 02/11/2009 TIMOTHY KAN, WOLF S 695.3 Rosacea 02/11/2009 CASSIE DOMINGUEZ, KADY Raymundo 695.3 Rosacea 02/11/2009 TIMOTHY KAN, WOLF S 695.3 Rosacea 02/11/2009 TIMOTHY KAN, WOLF S 695.3 Rosacea 02/11/2009 BRITNEY DDS, MARIA LUISA 695.3 Rosacea 02/11/2009 MAX DDS, KATHYA Chopra 695.3 Rosacea 03/31/2009 008.62 Gastroenteritis Viral Adenovirus 03/31/2009 008.62 Gastroenteritis Viral Adenovirus 03/31/2009 LJ DDS, KAELA Rdz 008.62 Gastroenteritis Viral Adenovirus 03/31/2009 HUSAM ORLANDO APRN 008.62 Gastroenteritis Viral Adenovirus 03/31/2009 HAFSA AGUIRRE APRNNDA S 008.62 Gastroenteritis Viral Adenovirus 03/31/2009 008.62 Gastroenteritis Viral Adenovirus 03/31/2009 MORAIMA NICOLE DO K 008.62 Gastroenteritis Viral Adenovirus 03/31/2009 008.62 Gastroenteritis Viral Adenovirus 03/31/2009 008.62 Gastroenteritis Viral Adenovirus 03/31/2009 008.62 Gastroenteritis Viral Adenovirus 03/31/2009 008.62 Gastroenteritis Viral Adenovirus 03/31/2009 NORMA DDSJUAREZ 008.62 Gastroenteritis Viral Adenovirus 03/31/2009 NORMA WILCOXS, JUAREZ Pierre 008.62 Gastroenteritis Viral Adenovirus 03/31/2009 MORAIMA NICOLE DO K 008.62 Gastroenteritis Viral Adenovirus 03/31/2009 TIMOTHY KAN WOLF S 008.62 Gastroenteritis Viral Adenovirus 03/31/2009 TIMOTHY KAN, WOLF S 008.62 Gastroenteritis Viral Adenovirus 03/31/2009 TIMOTHY KAN, WOLF S 008.62 Gastroenteritis Viral Adenovirus 03/31/2009 TIMOTHY KAN WOLF S 008.62 Gastroenteritis Viral Adenovirus 03/31/2009 HAFSA AGUIRRE APRNNDA S 008.62 Gastroenteritis Viral Adenovirus 03/31/2009 GAGANDEEP WILCOXS, MELISSA Raymundo 008.62 Gastroenteritis Viral Adenovirus 03/31/2009 BRITNEY WILCOXS, MARIA LUISA 008.62 Gastroenteritis Viral Adenovirus 03/31/2009 HUSAM ORLANDO APRN 008.62 Gastroenteritis Viral Adenovirus 03/31/2009 HAFSA AGUIRRE APRNNDA S 008.62 Gastroenteritis Viral Adenovirus 03/31/2009 HAFSA AGUIRRE APRNNDA S 008.62 Gastroenteritis Viral Adenovirus 03/31/2009 KADY MATTHEWS MD 008.62 Gastroenteritis Viral Adenovirus 03/31/2009 HAFSA AGUIRRE APRNNDA S 008.62 Gastroenteritis Viral Adenovirus 03/31/2009 HAFSA AGUIRRE APRNNDA S 008.62 Gastroenteritis Viral Adenovirus 03/31/2009 MARIA LUISA TAN DDS 008.62 Gastroenteritis Viral Adenovirus 03/31/2009 MAX WILCOXS, KATHYA Chopra 008.62 Gastroenteritis Viral Adenovirus 06/29/2009 599.0 Urinary Tract Infection 06/29/2009 599.0 Urinary Tract Infection 06/29/2009 LJ WILCOXS, KAELA F 599.0 Urinary Tract Infection 06/29/2009 HUSAM ORLANDO APRN 599.0 Urinary Tract Infection 06/29/2009 WOLF AGUIRRE APRN S 599.0 Urinary Tract Infection 06/29/2009 599.0 Urinary Tract Infection 06/29/2009 MORAIMA NICOLE DO K 599.0 Urinary Tract Infection 06/29/2009 599.0 Urinary Tract Infection 06/29/2009 599.0 Urinary Tract Infection 06/29/2009 599.0 Urinary Tract Infection 06/29/2009 599.0 Urinary Tract Infection 06/29/2009 JUAREZ GREEN DDS M 599.0 Urinary Tract Infection 06/29/2009 JUAREZ GREEN DDS 599.0 Urinary Tract Infection 06/29/2009 MORAIMA NICOLE DO K 599.0 Urinary Tract Infection 06/29/2009 HAFSA AGUIRRE APRNNDA S 599.0 Urinary Tract Infection 06/29/2009 HAFSA AGUIRRE APRNNDA S 599.0 Urinary Tract Infection 06/29/2009 HAFSA AGUIRRE APRNNDA S 599.0 Urinary Tract Infection 06/29/2009 TIMOTHY GAINESN, WOLF S 599.0 Urinary Tract Infection 06/29/2009 TIMOTHYSTARLA GAINESN, WOLF S 599.0 Urinary Tract Infection 06/29/2009 MELISSA DONIS DDS 599.0 Urinary Tract Infection 06/29/2009 MARIA LUISA TAN DDS 599.0 Urinary Tract Infection 06/29/2009 HUSAM ORLANDO APRN 599.0 Urinary Tract Infection 06/29/2009 TIMOTHY MAP PLOTTER, WOLF S 599.0 Urinary Tract Infection 06/29/2009 ITMOTHY GAINESN, WOLF S 599.0 Urinary Tract Infection 06/29/2009 CASSIE DOMINGUEZ, KADY Raymundo 599.0 Urinary Tract Infection 06/29/2009 TIMOTHY MAP PLOTTER, WOLF S 599.0 Urinary Tract Infection 06/29/2009 TIMOTHY KAN, WOLF S 599.0 Urinary Tract Infection 06/29/2009 MARIA LUISA TAN DDS 599.0 Urinary Tract Infection 06/29/2009 MAX MARTINES, KATHYA Chopra 599.0 Urinary Tract Infection 08/15/2009 272.4 HYPERLIPIDEMIA UNSPECIFIED 08/15/2009 272.4 HYPERLIPIDEMIA UNSPECIFIED 08/15/2009 KAELA CALHOUN DDS 272.4 HYPERLIPIDEMIA UNSPECIFIED 08/15/2009 HUSAM ORLANDO APRN 272.4 HYPERLIPIDEMIA UNSPECIFIED 08/15/2009 TIMOTHY KAN, WOLF S 272.4 HYPERLIPIDEMIA UNSPECIFIED 08/15/2009 272.4 HYPERLIPIDEMIA UNSPECIFIED 08/15/2009 MORAIMA NICOLE DO 272.4 HYPERLIPIDEMIA UNSPECIFIED 08/15/2009 272.4 HYPERLIPIDEMIA UNSPECIFIED 08/15/2009 272.4 HYPERLIPIDEMIA UNSPECIFIED 08/15/2009 272.4 HYPERLIPIDEMIA UNSPECIFIED 08/15/2009 272.4 HYPERLIPIDEMIA UNSPECIFIED 08/15/2009 JUAREZ GREEN DDS 272.4 HYPERLIPIDEMIA UNSPECIFIED 08/15/2009 JUAREZ GREEN DDS 272.4 HYPERLIPIDEMIA UNSPECIFIED 08/15/2009 MORAIMA NICOLE DO 272.4 HYPERLIPIDEMIA UNSPECIFIED 08/15/2009 TIMOTHY KAN, WOLF S 272.4 HYPERLIPIDEMIA UNSPECIFIED 08/15/2009 TIMOTHY KAN, WOLF S 272.4 HYPERLIPIDEMIA UNSPECIFIED 08/15/2009 TIMOTHY KAN, WOLF S 272.4 HYPERLIPIDEMIA UNSPECIFIED 08/15/2009 TIMOTHYSTARLA KAN, WOLF S 272.4 HYPERLIPIDEMIA UNSPECIFIED 08/15/2009 TIMOTHYSTARLA KAN, WOLF S 272.4 HYPERLIPIDEMIA UNSPECIFIED 08/15/2009 GAGANDEEP WILCOXS, MELISSA Raymundo 272.4 HYPERLIPIDEMIA UNSPECIFIED 08/15/2009 MARIA LUISA TAN DDS 272.4 HYPERLIPIDEMIA UNSPECIFIED 08/15/2009 HUSAM ORLANDO APRN 272.4 HYPERLIPIDEMIA UNSPECIFIED 08/15/2009 TIMOTHY KAN, WOLF S 272.4 HYPERLIPIDEMIA UNSPECIFIED 08/15/2009 TIMOTHY KAN, WOLF S 272.4 HYPERLIPIDEMIA UNSPECIFIED 08/15/2009 CASSIE DOMINGUEZ, KADY Raymundo 272.4 HYPERLIPIDEMIA UNSPECIFIED 08/15/2009 TIMOTHY KAN, WOLF S 272.4 HYPERLIPIDEMIA UNSPECIFIED 08/15/2009 TIMOTHY KAN, WOLF S 272.4 HYPERLIPIDEMIA UNSPECIFIED 08/15/2009 MARIA LUISA TAN DDS 272.4 HYPERLIPIDEMIA UNSPECIFIED 08/15/2009 MAX WILCOXSKATHYA 272.4 HYPERLIPIDEMIA UNSPECIFIED 08/26/2009 558.9 Gastroenteritis Noninfectious 08/26/2009 558.9 Gastroenteritis Noninfectious 08/26/2009 KAELA CALHOUN DDS 558.9 Gastroenteritis Noninfectious 08/26/2009 HUSAM ORLANDO APRN 558.9 Gastroenteritis Noninfectious 08/26/2009 YU AGUIRRE APRNA S 558.9 Gastroenteritis Noninfectious 08/26/2009 558.9 Gastroenteritis Noninfectious 08/26/2009 MORAIMA NICOLE DO 558.9 Gastroenteritis Noninfectious 08/26/2009 558.9 Gastroenteritis Noninfectious 08/26/2009 558.9 Gastroenteritis Noninfectious 08/26/2009 558.9 Gastroenteritis Noninfectious 08/26/2009 558.9 Gastroenteritis Noninfectious 08/26/2009 JUAREZ GREEN DDS 558.9 Gastroenteritis Noninfectious 08/26/2009 JUAREZ GREEN DDS 558.9 Gastroenteritis Noninfectious 08/26/2009 MORAIMA NICOLE DO 558.9 Gastroenteritis Noninfectious 08/26/2009 TIMOTHY MAP PLOTTER, WOLF S 558.9 Gastroenteritis Noninfectious 08/26/2009 TIMOTHY MAP PLOTTER, WOLF S 558.9 Gastroenteritis Noninfectious 08/26/2009 TIMOTHY MAP PLOTTER, WOLF S 558.9 Gastroenteritis Noninfectious 08/26/2009 TIMOTHY MAP PLOTTER, WOLF S 558.9 Gastroenteritis Noninfectious 08/26/2009 TIMOTHY MAP PLOTTER, WOLF S 558.9 Gastroenteritis Noninfectious 08/26/2009 GAGANDEEP DDS, MELISSA Raymundo 558.9 Gastroenteritis Noninfectious 08/26/2009 TAN DDS, MARIA LUISA 558.9 Gastroenteritis Noninfectious 08/26/2009 HUSAM ORLANDO APRN 558.9 Gastroenteritis Noninfectious 08/26/2009 TIMOTHY MAP PLOTTER, WOLF S 558.9 Gastroenteritis Noninfectious 08/26/2009 TIMOTHY MAP PLOTTER, WOLF S 558.9 Gastroenteritis Noninfectious 08/26/2009 CASSIE DOMINGUEZ, KADY Raymundo 558.9 Gastroenteritis Noninfectious 08/26/2009 TIMOTHY MAP PLOTTER, WOLF S 558.9 Gastroenteritis Noninfectious 08/26/2009 TIMOTHY MAP PLOTTER, WOLF S 558.9 Gastroenteritis Noninfectious 08/26/2009 TAN DDS, MARIA LUISA 558.9 Gastroenteritis Noninfectious 08/26/2009 MAX DDS, KATHYA Chopra 558.9 Gastroenteritis Noninfectious 09/07/2009 300.00 Anxiety State, Unspecified 09/07/2009 V58.69 Medication High Risk 09/07/2009 300.00 Anxiety State, Unspecified 09/07/2009 V58.69 Medication High Risk 09/07/2009 LJ DDS, KAELA F 300.00 Anxiety State, Unspecified 09/07/2009 LJ DDS, KAELA F V58.69 Medication High Risk 09/07/2009 HUSAM ORLANDO APRN 300.00 Anxiety State, Unspecified 09/07/2009 HUSAM ORLANDO APRN V58.69 Medication High Risk 09/07/2009 TIMOTHY KAN, WOLF S 300.00 Anxiety State, Unspecified 09/07/2009 TIMOTHY KAN WOLF S V58.69 Medication High Risk 09/07/2009 300.00 Anxiety State, Unspecified 09/07/2009 V58.69 Medication High Risk 09/07/2009 NICOLE DO, MORAIMA K 300.00 Anxiety State, Unspecified 09/07/2009 NICOLE DO, MORAIMA K V58.69 Medication High Risk 09/07/2009 300.00 Anxiety State, Unspecified 09/07/2009 V58.69 Medication High Risk 09/07/2009 300.00 Anxiety State, Unspecified 09/07/2009 V58.69 Medication High Risk 09/07/2009 300.00 Anxiety State, Unspecified 09/07/2009 V58.69 Medication High Risk 09/07/2009 300.00 Anxiety State, Unspecified 09/07/2009 V58.69 Medication High Risk 09/07/2009 NORMA DDS, JUAREZ Pierre 300.00 Anxiety State, Unspecified 09/07/2009 NORMA DDS, JUAREZ Pierre V58.69 Medication High Risk 09/07/2009 NORMA DDS, JUAREZ Pierre 300.00 Anxiety State, Unspecified 09/07/2009 NORMA DDS, JUAREZ Pierre V58.69 Medication High Risk 09/07/2009 NICOLE DO, MORAIMA K 300.00 Anxiety State, Unspecified 09/07/2009 NICOLE DO, MORAIMA K V58.69 Medication High Risk 09/07/2009 TIMOTHY MAP PLOTTER, WOLF S 300.00 Anxiety State, Unspecified 09/07/2009 TIMOTHY MAP PLOTTER, WOLF S V58.69 Medication High Risk 09/07/2009 TIMOTHY MAP PLOTTER, WOLF S 300.00 Anxiety State, Unspecified 09/07/2009 TIMOTHY MAP PLOTTER, WOLF S V58.69 Medication High Risk 09/07/2009 TIMOTHY MAP PLOTTER, WOLF S 300.00 Anxiety State, Unspecified 09/07/2009 TIMOTHY MAP PLOTTER, WOLF S V58.69 Medication High Risk 09/07/2009 TIMOTHY MAP PLOTTER, WOLF S 300.00 Anxiety State, Unspecified 09/07/2009 TIMOTHY MAP PLOTTER, WOLF S V58.69 Medication High Risk 09/07/2009 TIMOTHY MAP PLOTTER, WOLF S 300.00 Anxiety State, Unspecified 09/07/2009 TIMOTHY MAP PLOTTER, WOLF S V58.69 Medication High Risk 09/07/2009 WHITE DDS, MELISSA J 300.00 Anxiety State, Unspecified 09/07/2009 WHITE DDS, MELISSA J V58.69 Medication High Risk 09/07/2009 TAN DDS, MARIA LUISA 300.00 Anxiety State, Unspecified 09/07/2009 TAN DDS, MARIA LUISA V58.69 Medication High Risk 09/07/2009 HUSAM ORLANDO APRN 300.00 Anxiety State, Unspecified 09/07/2009 HUSAM ORLANDO APRN V58.69 Medication High Risk 09/07/2009 TIMOTHY MAP PLOTTER, WOLF S 300.00 Anxiety State, Unspecified 09/07/2009 TIMOTHY MAP PLOTTER, WOLF S V58.69 Medication High Risk 09/07/2009 TIMOTHY MAP PLOTTER, WOLF S 300.00 Anxiety State, Unspecified 09/07/2009 TIMOTHY MAP PLOTTER, WOLF S V58.69 Medication High Risk 09/07/2009 CASSIE DOMINGUEZ, KADY Raymundo 300.00 Anxiety State, Unspecified 09/07/2009 CASSIE DOMINGUEZ, KADY Raymundo V58.69 Medication High Risk 09/07/2009 TIMOTHY MAP PLOTTER, WOLF S 300.00 Anxiety State, Unspecified 09/07/2009 TIMOTHY MAP PLOTTER, WOLF S V58.69 Medication High Risk 09/07/2009 TIMOTHY MAP PLOTTER, WOLF S 300.00 Anxiety State, Unspecified 09/07/2009 TIMOTHY MAP PLOTTER, WOLF S V58.69 Medication High Risk 09/07/2009 TAN DDS, MARIA LUISA 300.00 Anxiety State, Unspecified 09/07/2009 TAN DDS, MARIA LUISA V58.69 Medication High Risk 09/07/2009 MAX DDS, KATHYA D 300.00 Anxiety State, Unspecified 09/07/2009 MAX DDS, KATHYA D V58.69 Medication High Risk 11/10/2009 719.41 Pain In Joint, Shoulder Region 11/10/2009 719.41 Pain In Joint, Shoulder Region 11/10/2009 LJ DDS, KAELA F 719.41 Pain In Joint, Shoulder Region 11/10/2009 HUSAM ORLANDO APRN 719.41 Pain In Joint, Shoulder Region 11/10/2009 TIMOTHY MAP PLOTTER, WOLF S 719.41 Pain In Joint, Shoulder Region 11/10/2009 719.41 Pain In Joint, Shoulder Region 11/10/2009 MORAIMA NICOLE DO 719.41 Pain In Joint, Shoulder Region 11/10/2009 719.41 Pain In Joint, Shoulder Region 11/10/2009 719.41 Pain In Joint, Shoulder Region 11/10/2009 719.41 Pain In Joint, Shoulder Region 11/10/2009 719.41 Pain In Joint, Shoulder Region 11/10/2009 NORMA WILCOXSJUAREZ 719.41 Pain In Joint, Shoulder Region 11/10/2009 NORMA WILCOXS, JUAREZ Pierre 719.41 Pain In Joint, Shoulder Region 11/10/2009 MORAIMA NICOLE DO 719.41 Pain In Joint, Shoulder Region 11/10/2009 TIMOTHY MAP PLOTTER, WOLF S 719.41 Pain In Joint, Shoulder Region 11/10/2009 TIMOTHY MAP PLOTTER, WOLF S 719.41 Pain In Joint, Shoulder Region 11/10/2009 TIMOTHY MAP PLOTTER, WOLF S 719.41 Pain In Joint, Shoulder Region 11/10/2009 TIMOTHY MAP PLOTTER, WOLF S 719.41 Pain In Joint, Shoulder Region 11/10/2009 TIMOTHY MAP PLOTTER, WOLF S 719.41 Pain In Joint, Shoulder Region 11/10/2009 MELISSA DONIS DDS 719.41 Pain In Joint, Shoulder Region 11/10/2009 MARIA LUISA TAN DDS 719.41 Pain In Joint, Shoulder Region 11/10/2009 HUSAM ORLANDO APRN 719.41 Pain In Joint, Shoulder Region 11/10/2009 TIMOTHY MAP PLOTTER, WOLF S 719.41 Pain In Joint, Shoulder Region 11/10/2009 TIMOTHY MAP PLOTTER, WOLF S 719.41 Pain In Joint, Shoulder Region 11/10/2009 CASSIE DOMINGUEZ, KADY Raymundo 719.41 Pain In Joint, Shoulder Region 11/10/2009 TIMOTHY MAP PLOTTER, WOLF S 719.41 Pain In Joint, Shoulder Region 11/10/2009 TIMOTHY MAP PLOTTER, WOLF S 719.41 Pain In Joint, Shoulder Region 11/10/2009 BRITNEY DDS, MARIA LUISA 719.41 Pain In Joint, Shoulder Region 11/10/2009 MAX DDS, KATHYA Chopra 719.41 Pain In Joint, Shoulder Region 12/29/2009 311 DEPRESSIVE DISORDER, NOT ELSEWHERE CLASSIFIED 12/29/2009 564.1 Irritable Bowel Syndrome 12/29/2009 311 DEPRESSIVE DISORDER, NOT ELSEWHERE CLASSIFIED 12/29/2009 564.1 Irritable Bowel Syndrome 12/29/2009 LJ DDS, KAELA F 311 DEPRESSIVE DISORDER, NOT ELSEWHERE CLASSIFIED 12/29/2009 LJ DDS, KAELA F 564.1 Irritable Bowel Syndrome 12/29/2009 HUSAM ORLANDO APRN 311 DEPRESSIVE DISORDER, NOT ELSEWHERE CLASSIFIED 12/29/2009 HUSAM ORLANDO APRN 564.1 Irritable Bowel Syndrome 12/29/2009 WOLF AGUIRRE APRN S 311 DEPRESSIVE DISORDER, NOT ELSEWHERE CLASSIFIED 12/29/2009 WOLF AGUIRRE APRN S 564.1 Irritable Bowel Syndrome 12/29/2009 311 DEPRESSIVE DISORDER, NOT ELSEWHERE CLASSIFIED 12/29/2009 564.1 Irritable Bowel Syndrome 12/29/2009 MORAIMA NICOLE DO K 311 DEPRESSIVE DISORDER, NOT ELSEWHERE CLASSIFIED 12/29/2009 LILLIAN NICOLE DOA K 564.1 Irritable Bowel Syndrome 12/29/2009 311 DEPRESSIVE DISORDER, NOT ELSEWHERE CLASSIFIED 12/29/2009 564.1 Irritable Bowel Syndrome 12/29/2009 311 DEPRESSIVE DISORDER, NOT ELSEWHERE CLASSIFIED 12/29/2009 564.1 Irritable Bowel Syndrome 12/29/2009 311 DEPRESSIVE DISORDER, NOT ELSEWHERE CLASSIFIED 12/29/2009 564.1 Irritable Bowel Syndrome 12/29/2009 311 DEPRESSIVE DISORDER, NOT ELSEWHERE CLASSIFIED 12/29/2009 564.1 Irritable Bowel Syndrome 12/29/2009 JUAREZ GREEN DDS 311 DEPRESSIVE DISORDER, NOT ELSEWHERE CLASSIFIED 12/29/2009 JUAREZ GREEN DDS 564.1 Irritable Bowel Syndrome 12/29/2009 JUAREZ GREEN DDS 311 DEPRESSIVE DISORDER, NOT ELSEWHERE CLASSIFIED 12/29/2009 JUAREZ GREEN DDS 564.1 Irritable Bowel Syndrome 12/29/2009 MORAIMA NICOLE DO K 311 DEPRESSIVE DISORDER, NOT ELSEWHERE CLASSIFIED 12/29/2009 MORAIMA NICOLE DO K 564.1 Irritable Bowel Syndrome 12/29/2009 TIMOTHY MAP PLOTTER, WOLF S 311 DEPRESSIVE DISORDER, NOT ELSEWHERE CLASSIFIED 12/29/2009 TIMOTHY MAP PLOTTER, WOLF S 564.1 Irritable Bowel Syndrome 12/29/2009 TIMOTHY MAP PLOTTER, WOLF S 311 DEPRESSIVE DISORDER, NOT ELSEWHERE CLASSIFIED 12/29/2009 TIMOTHY MAP PLOTTER, WOLF S 564.1 Irritable Bowel Syndrome 12/29/2009 TIMOTHY MAP PLOTTER, WOLF S 311 DEPRESSIVE DISORDER, NOT ELSEWHERE CLASSIFIED 12/29/2009 TIMOTHY MAP PLOTTER, WOLF S 564.1 Irritable Bowel Syndrome 12/29/2009 TIMOTHY MAP PLOTTER, WOLF S 311 DEPRESSIVE DISORDER, NOT ELSEWHERE CLASSIFIED 12/29/2009 TIMOTHY MAP PLOTTER, WOLF S 564.1 Irritable Bowel Syndrome 12/29/2009 TIMOTHY MAP PLOTTER, WOLF S 311 DEPRESSIVE DISORDER, NOT ELSEWHERE CLASSIFIED 12/29/2009 TIMOTHY MAP PLOTTER, WOLF S 564.1 Irritable Bowel Syndrome 12/29/2009 WHITE DDS, MELISSA J 311 DEPRESSIVE DISORDER, NOT ELSEWHERE CLASSIFIED 12/29/2009 WHITE DDS, MELISSA J 564.1 Irritable Bowel Syndrome 12/29/2009 TAN DDS, MARIA LUISA 311 DEPRESSIVE DISORDER, NOT ELSEWHERE CLASSIFIED 12/29/2009 TAN DDS, MARIA LUISA 564.1 Irritable Bowel Syndrome 12/29/2009 JOHANNY KAN HUSAM T 311 DEPRESSIVE DISORDER, NOT ELSEWHERE CLASSIFIED 12/29/2009 JOHANNY KAN HUSAM T 564.1 Irritable Bowel Syndrome 12/29/2009 TIMOTHY KAN, WOLF S 311 DEPRESSIVE DISORDER, NOT ELSEWHERE CLASSIFIED 12/29/2009 TIMOTHY MAP PLOTTER, WOLF S 564.1 Irritable Bowel Syndrome 12/29/2009 TIMOTHY MAP PLOTTER, WOLF S 311 DEPRESSIVE DISORDER, NOT ELSEWHERE CLASSIFIED 12/29/2009 TIMOTHY MAP PLOTTER, WOLF S 564.1 Irritable Bowel Syndrome 12/29/2009 KADY MATTHEWS MD 311 DEPRESSIVE DISORDER, NOT ELSEWHERE CLASSIFIED 12/29/2009 KADY MATTHEWS MD 564.1 Irritable Bowel Syndrome 12/29/2009 TIMOTHY KAN, WOLF S 311 DEPRESSIVE DISORDER, NOT ELSEWHERE CLASSIFIED 12/29/2009 WOLF AGUIRRE APRN S 564.1 Irritable Bowel Syndrome 12/29/2009 WOLF AGUIRRE APRN S 311 DEPRESSIVE DISORDER, NOT ELSEWHERE CLASSIFIED 12/29/2009 WOLF AGUIRRE APRN S 564.1 Irritable Bowel Syndrome 12/29/2009 BRITNEY DDS, MARIA LUISA 311 DEPRESSIVE DISORDER, NOT ELSEWHERE CLASSIFIED 12/29/2009 TAN DDS, MARIA LUISA 564.1 Irritable Bowel Syndrome 12/29/2009 MAX DDS, KATHYA Chopra 311 DEPRESSIVE DISORDER, NOT ELSEWHERE CLASSIFIED 12/29/2009 MAX DDS, KATHYA Chopra 564.1 Irritable Bowel Syndrome 01/27/2010 427.89 Other Specified Cardiac Dysrhythmias 01/27/2010 787.02 Nausea Alone 01/27/2010 427.89 Other Specified Cardiac Dysrhythmias 01/27/2010 787.02 Nausea Alone 01/27/2010 LJ DDS, KAELA F 427.89 Other Specified Cardiac Dysrhythmias 01/27/2010 LJ WILCOXS, KAELA F 787.02 Nausea Alone 01/27/2010 HUSAM ORLANDO APRN 427.89 Other Specified Cardiac Dysrhythmias 01/27/2010 HUSAM ORLANDO APRN 787.02 Nausea Alone 01/27/2010 WOLF AGUIRRE APRN 427.89 Other Specified Cardiac Dysrhythmias 01/27/2010 WOLF AGUIRRE APRN 787.02 Nausea Alone 01/27/2010 427.89 Other Specified Cardiac Dysrhythmias 01/27/2010 787.02 Nausea Alone 01/27/2010 NICOLE MORAIMA LOCKETT K 427.89 Other Specified Cardiac Dysrhythmias 01/27/2010 NICOLE DOMORAIMA K 787.02 Nausea Alone 01/27/2010 427.89 Other Specified Cardiac Dysrhythmias 01/27/2010 787.02 Nausea Alone 01/27/2010 427.89 Other Specified Cardiac Dysrhythmias 01/27/2010 787.02 Nausea Alone 01/27/2010 427.89 Other Specified Cardiac Dysrhythmias 01/27/2010 787.02 Nausea Alone 01/27/2010 427.89 Other Specified Cardiac Dysrhythmias 01/27/2010 787.02 Nausea Alone 01/27/2010 NORMA DDS, JUAREZ Pierre 427.89 Other Specified Cardiac Dysrhythmias 01/27/2010 NORMA DDS, JUAREZ Pierre 787.02 Nausea Alone 01/27/2010 NORMA DDS, JUAREZ Pierre 427.89 Other Specified Cardiac Dysrhythmias 01/27/2010 NORMA DDS, JUAREZ Pierre 787.02 Nausea Alone 01/27/2010 INCOLE DO, MORAIMA K 427.89 Other Specified Cardiac Dysrhythmias 01/27/2010 NICOLE DO, MORAIMA K 787.02 Nausea Alone 01/27/2010 TIMOTHY GAINESN, WOLF S 427.89 Other Specified Cardiac Dysrhythmias 01/27/2010 TIMOTHY MAP PLOTTER, WOLF S 787.02 Nausea Alone 01/27/2010 TIMOTHY KAN WOLF S 427.89 Other Specified Cardiac Dysrhythmias 01/27/2010 HAFSA AGUIRRE APRNNDA S 787.02 Nausea Alone 01/27/2010 HAFSA AGUIRRE APRNNDA S 427.89 Other Specified Cardiac Dysrhythmias 01/27/2010 TIMOTHY KAN WOLF S 787.02 Nausea Alone 01/27/2010 TIMOTHY KAN WOLF S 427.89 Other Specified Cardiac Dysrhythmias 01/27/2010 TIMOTHY KAN WOLF S 787.02 Nausea Alone 01/27/2010 TIMOTHY KAN WOLF S 427.89 Other Specified Cardiac Dysrhythmias 01/27/2010 TIMOTHY KAN WOLF S 787.02 Nausea Alone 01/27/2010 GAGANDEEP DDS, MELISSA J 427.89 Other Specified Cardiac Dysrhythmias 01/27/2010 WHITE DDS, MELISSA J 787.02 Nausea Alone 01/27/2010 TAN DDSMARIA LUISA 427.89 Other Specified Cardiac Dysrhythmias 01/27/2010 TAN DDS, MARIA LUISA 787.02 Nausea Alone 01/27/2010 HUSAM ORLANDO APRN 427.89 Other Specified Cardiac Dysrhythmias 01/27/2010 HUSAM ORLANDO APRN 787.02 Nausea Alone 01/27/2010 HAFSA AGUIRRE APRNNDA S 427.89 Other Specified Cardiac Dysrhythmias 01/27/2010 TIMOTHY MAP PLOTTER, WOLF S 787.02 Nausea Alone 01/27/2010 TIMOTHY MAP PLOTTER, WOLF S 427.89 Other Specified Cardiac Dysrhythmias 01/27/2010 TIMOTHY KAN, WOLF S 787.02 Nausea Alone 01/27/2010 KADY MATTHEWS MD 427.89 Other Specified Cardiac Dysrhythmias 01/27/2010 KADY MATTHEWS MD 787.02 Nausea Alone 01/27/2010 TIMOTHY KAN, WOLF S 427.89 Other Specified Cardiac Dysrhythmias 01/27/2010 TIMOTHY KAN, WOLF S 787.02 Nausea Alone 01/27/2010 TIMOTHY KAN, WOLF S 427.89 Other Specified Cardiac Dysrhythmias 01/27/2010 TIMOTHY KAN, WOLF S 787.02 Nausea Alone 01/27/2010 TAN DDSMARIA LUISA 427.89 Other Specified Cardiac Dysrhythmias 01/27/2010 TAN JERISMARIA LUISA 787.02 Nausea Alone 01/27/2010 MAX WILCOXS, KATHYA D 427.89 Other Specified Cardiac Dysrhythmias 01/27/2010 MAX DDS, KATHYA D 787.02 Nausea Alone 02/03/2010 781.0 Abnormal Involuntary Movements 02/03/2010 781.0 Abnormal Involuntary Movements 02/03/2010 LJ WILCOXSKAELA 781.0 Abnormal Involuntary Movements 02/03/2010 HUSAM ORLANDO APRN 781.0 Abnormal Involuntary Movements 02/03/2010 WOLF AGUIRRE APRN S 781.0 Abnormal Involuntary Movements 02/03/2010 781.0 Abnormal Involuntary Movements 02/03/2010 MORAIMA NICOLE DO 781.0 Abnormal Involuntary Movements 02/03/2010 781.0 Abnormal Involuntary Movements 02/03/2010 781.0 Abnormal Involuntary Movements 02/03/2010 781.0 Abnormal Involuntary Movements 02/03/2010 781.0 Abnormal Involuntary Movements 02/03/2010 JUAREZ GREEN DDS 781.0 Abnormal Involuntary Movements 02/03/2010 JUAREZ GREEN DDS 781.0 Abnormal Involuntary Movements 02/03/2010 MORAIMA NICLOE DO 781.0 Abnormal Involuntary Movements 02/03/2010 TIMOTHY MAP PLOTTER, WOLF S 781.0 Abnormal Involuntary Movements 02/03/2010 TIMOTHY MAP PLOTTER, WOLF S 781.0 Abnormal Involuntary Movements 02/03/2010 TIMOTHY MAP PLOTTER, WOLF S 781.0 Abnormal Involuntary Movements 02/03/2010 TIMOTHY MAP PLOTTER, WOLF S 781.0 Abnormal Involuntary Movements 02/03/2010 TIMOTHY MAP PLOTTER, WOLF S 781.0 Abnormal Involuntary Movements 02/03/2010 GAGANDEEP DDS, MELISSA J 781.0 Abnormal Involuntary Movements 02/03/2010 TAN DDS, MARIA LUISA 781.0 Abnormal Involuntary Movements 02/03/2010 HUSAM ORLANDO APRN 781.0 Abnormal Involuntary Movements 02/03/2010 TIMOTHY MAP PLOTTER, WOLF S 781.0 Abnormal Involuntary Movements 02/03/2010 TIMOTHY MAP PLOTTER, WOLF S 781.0 Abnormal Involuntary Movements 02/03/2010 CASSIE DOMINGUEZ, KADY Raymundo 781.0 Abnormal Involuntary Movements 02/03/2010 TIMOTHY MAP PLOTTER, WOLF S 781.0 Abnormal Involuntary Movements 02/03/2010 TIMOTHY MAP PLOTTER, WOLF S 781.0 Abnormal Involuntary Movements 02/03/2010 TAN DDS, MARIA LUISA 781.0 Abnormal Involuntary Movements 02/03/2010 MAX DDS, KATHYA Chopra 781.0 Abnormal Involuntary Movements 02/06/2010 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 02/06/2010 780.52 Insomnia, Unspecified 02/06/2010 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 02/06/2010 780.52 Insomnia, Unspecified 02/06/2010 LJ DDS, KAELA F 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 02/06/2010 LJ DDS, KAELA F 780.52 Insomnia, Unspecified 02/06/2010 HUSAM ORLANDO APRN 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 02/06/2010 HUSAM ORLANDO APRN 780.52 Insomnia, Unspecified 02/06/2010 TIMOTHY GAINESN, WOLF S 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 02/06/2010 TIMOTHY MAP PLOTTER, WOLF S 780.52 Insomnia, Unspecified 02/06/2010 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 02/06/2010 780.52 Insomnia, Unspecified 02/06/2010 MORAIMA NICOLE DO K 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 02/06/2010 MORAIMA NICOLE DO K 780.52 Insomnia, Unspecified 02/06/2010 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 02/06/2010 780.52 Insomnia, Unspecified 02/06/2010 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 02/06/2010 780.52 Insomnia, Unspecified 02/06/2010 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 02/06/2010 780.52 Insomnia, Unspecified 02/06/2010 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 02/06/2010 780.52 Insomnia, Unspecified 02/06/2010 NORMA WILCOXSJUAREZ 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 02/06/2010 JUAREZ GREEN DDS 780.52 Insomnia, Unspecified 02/06/2010 NORMA WILCOXSJUAREZ 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 02/06/2010 JUAREZ GREEN DDS 780.52 Insomnia, Unspecified 02/06/2010 MORAIMA NICOLE DO K 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 02/06/2010 MORAIMA NICOLE DO K 780.52 Insomnia, Unspecified 02/06/2010 TIMOTHY MAP PLOTTER, WOLF S 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 02/06/2010 TIMOTHY GAINESN, WOLF S 780.52 Insomnia, Unspecified 02/06/2010 TIMOTHY MAP PLOTTER, WOLF S 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 02/06/2010 TIMOTHY MAP PLOTTER, WOLF S 780.52 Insomnia, Unspecified 02/06/2010 TIMOTHY MAP PLOTTER, WOLF S 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 02/06/2010 TIMOTHY MAP PLOTTER, WOLF S 780.52 Insomnia, Unspecified 02/06/2010 TIMOTHY MAP PLOTTER, WOLF S 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 02/06/2010 TIMOTHY GAINESN, WOLF S 780.52 Insomnia, Unspecified 02/06/2010 TIMOTHY KAN, WOLF S 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 02/06/2010 TIMOTHY GAINESN, WOLF S 780.52 Insomnia, Unspecified 02/06/2010 GAGANDEEP DDS, MELISSA J 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 02/06/2010 WHITE DDS, MELISSA J 780.52 Insomnia, Unspecified 02/06/2010 TAN DDS, MARIA LUISA 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 02/06/2010 CASSIE DOMINGUEZ, KADY Raymundo 780.52 Insomnia, Unspecified 02/06/2010 TIMOTHY GAINESN, WOLF S 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 02/06/2010 TIMOTHY GAINESN, WOLF S 780.52 Insomnia, Unspecified 02/06/2010 TIMOTHY KAN, WOLF S 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 02/06/2010 TIMOTHY MAP PLOTTER, WOLF S 780.52 Insomnia, Unspecified 02/06/2010 TAN DDS, MARIA LUISA 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 02/06/2010 TAN DDS, MARIA LUISA 780.52 Insomnia, Unspecified 02/06/2010 MAX WILCOXS, KATHYA Chopra 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 02/06/2010 MAX DDS, KATHYA Chopra 780.52 Insomnia, Unspecified 04/18/2010 616.10 Vaginitis And Vulvovaginitis, Unspecified 04/18/2010 788.1 Dysuria 04/18/2010 V72.31 Routine Gynecological Examination 04/18/2010 616.10 Vaginitis And Vulvovaginitis, Unspecified 04/18/2010 788.1 Dysuria 04/18/2010 V72.31 Routine Gynecological Examination 04/18/2010 LJ DDS, KAELA F 616.10 Vaginitis And Vulvovaginitis, Unspecified 04/18/2010 LJ DDS, KAELA F 788.1 Dysuria 04/18/2010 LJ DDS, KAELA F V72.31 Routine Gynecological Examination 04/18/2010 HUSAM ORLANDO APRN 616.10 Vaginitis And Vulvovaginitis, Unspecified 04/18/2010 HUSAM ORLANDO APRN 788.1 Dysuria 04/18/2010 HUSAM ORLANDO APRN V72.31 Routine Gynecological Examination 04/18/2010 WOLF AGUIRRE APRN S 616.10 Vaginitis And Vulvovaginitis, Unspecified 04/18/2010 WOLF AGUIRRE APRN S 788.1 Dysuria 04/18/2010 HAFSA AGUIRRE APRNNDA S V72.31 Routine Gynecological Examination 04/18/2010 616.10 Vaginitis And Vulvovaginitis, Unspecified 04/18/2010 788.1 Dysuria 04/18/2010 V72.31 Routine Gynecological Examination 04/18/2010 MORAIMA NICOLE DO K 616.10 Vaginitis And Vulvovaginitis, Unspecified 04/18/2010 LILLIAN NICOLE DOA K 788.1 Dysuria 04/18/2010 LILLIAN NICOLE DOA K V72.31 Routine Gynecological Examination 04/18/2010 616.10 Vaginitis And Vulvovaginitis, Unspecified 04/18/2010 788.1 Dysuria 04/18/2010 V72.31 Routine Gynecological Examination 04/18/2010 616.10 Vaginitis And Vulvovaginitis, Unspecified 04/18/2010 788.1 Dysuria 04/18/2010 V72.31 Routine Gynecological Examination 04/18/2010 616.10 Vaginitis And Vulvovaginitis, Unspecified 04/18/2010 788.1 Dysuria 04/18/2010 V72.31 Routine Gynecological Examination 04/18/2010 616.10 Vaginitis And Vulvovaginitis, Unspecified 04/18/2010 788.1 Dysuria 04/18/2010 V72.31 Routine Gynecological Examination 04/18/2010 NORMA DDS, JUAREZ Pierre 616.10 Vaginitis And Vulvovaginitis, Unspecified 04/18/2010 NORMA DDS, JUAREZ Pierre 788.1 Dysuria 04/18/2010 NORMA DDS, JUAREZ Pierre V72.31 Routine Gynecological Examination 04/18/2010 NORMA DDS, JUAREZ Pierre 616.10 Vaginitis And Vulvovaginitis, Unspecified 04/18/2010 NORMA DDS, JUAREZ Pierre 788.1 Dysuria 04/18/2010 NORMA DDS, JUAREZ Pierre V72.31 Routine Gynecological Examination 04/18/2010 BONNIE LOCKETT MORAIMA K 616.10 Vaginitis And Vulvovaginitis, Unspecified 04/18/2010 BONNIE LOCKETT MORAIMA K 788.1 Dysuria 04/18/2010 BONNIE LOCKETT MORAIMA K V72.31 Routine Gynecological Examination 04/18/2010 TIMOTHY MAP PLOTTER, WOLF S 616.10 Vaginitis And Vulvovaginitis, Unspecified 04/18/2010 TIMOTHY MAP PLOTTER, WOLF S 788.1 Dysuria 04/18/2010 TIMOTHY MAP PLOTTER, WOLF S V72.31 Routine Gynecological Examination 04/18/2010 TIMOTHY MAP PLOTTER, WOLF S 616.10 Vaginitis And Vulvovaginitis, Unspecified 04/18/2010 TIMOTHY MAP PLOTTER, WOLF S 788.1 Dysuria 04/18/2010 TIMOTHY MAP PLOTTER, WOLF S V72.31 Routine Gynecological Examination 04/18/2010 TIMOTHY MAP PLOTTER, WOLF S 616.10 Vaginitis And Vulvovaginitis, Unspecified 04/18/2010 TIMOTHY MAP PLOTTER, WOLF S 788.1 Dysuria 04/18/2010 TIMOTHY MAP PLOTTER, WOLF S V72.31 Routine Gynecological Examination 04/18/2010 TIMOTHY MAP PLOTTER, WOLF S 616.10 Vaginitis And Vulvovaginitis, Unspecified 04/18/2010 TIMOTHY MAP PLOTTER, WOLF S 788.1 Dysuria 04/18/2010 TIMOTHY MAP PLOTTER, WOLF S V72.31 Routine Gynecological Examination 04/18/2010 TIMOTHY MAP PLOTTER, WOLF S 616.10 Vaginitis And Vulvovaginitis, Unspecified 04/18/2010 TIMOTHY MAP PLOTTER, WOLF S 788.1 Dysuria 04/18/2010 TIMOTHY MAP PLOTTER, WOLF S V72.31 Routine Gynecological Examination 04/18/2010 GAGANDEEP DDS, MELISSA J 616.10 Vaginitis And Vulvovaginitis, Unspecified 04/18/2010 WHITE DDS, MELISSA J 788.1 Dysuria 04/18/2010 GAGANDEEP DDS, MELISSA J V72.31 Routine Gynecological Examination 04/18/2010 TAN JERIS MARIA LUISA 616.10 Vaginitis And Vulvovaginitis, Unspecified 04/18/2010 TAN DDS, MARIA LUISA 788.1 Dysuria 04/18/2010 TAN DDS, MARIA LUISA V72.31 Routine Gynecological Examination 04/18/2010 HUSAM ORLANDO APRN 616.10 Vaginitis And Vulvovaginitis, Unspecified 04/18/2010 HUSAM ORLANDO APRN 788.1 Dysuria 04/18/2010 HUSAM ORLANDO APRN V72.31 Routine Gynecological Examination 04/18/2010 TIMOTHY MAP PLOTTER, WOLF S 616.10 Vaginitis And Vulvovaginitis, Unspecified 04/18/2010 TIMOTHY MAP PLOTTER, WOLF S 788.1 Dysuria 04/18/2010 TIMOTHY MAP PLOTTER, WOLF S V72.31 Routine Gynecological Examination 04/18/2010 TIMOTHY MAP PLOTTER, WOLF S 616.10 Vaginitis And Vulvovaginitis, Unspecified 04/18/2010 TIMOTHY MAP PLOTTER, WOLF S 788.1 Dysuria 04/18/2010 TIMOTHY MAP PLOTTER, WOLF S V72.31 Routine Gynecological Examination 04/18/2010 KADY MATTHEWS MD 616.10 Vaginitis And Vulvovaginitis, Unspecified 04/18/2010 CASSIE DOMINGUEZ, KADY Raymundo 788.1 Dysuria 04/18/2010 KADY MATTHEWS MD V72.31 Routine Gynecological Examination 04/18/2010 TIMOTHY MAP PLOTTER, WOLF S 616.10 Vaginitis And Vulvovaginitis, Unspecified 04/18/2010 TIMOTHY MAP PLOTTER, WOLF S 788.1 Dysuria 04/18/2010 TIMOTHY MAP PLOTTER, WOLF S V72.31 Routine Gynecological Examination 04/18/2010 TIMOTHY KAN, WOLF S 616.10 Vaginitis And Vulvovaginitis, Unspecified 04/18/2010 TIMOTHY KAN, WOLF S 788.1 Dysuria 04/18/2010 TIMOTHY KAN, WOLF S V72.31 Routine Gynecological Examination 04/18/2010 BRITNEY WILCOXSMARIA LUISA 616.10 Vaginitis And Vulvovaginitis, Unspecified 04/18/2010 BRITNEY WICLOXSMARIA LUISA 788.1 Dysuria 04/18/2010 MARIA LUISA TAN DDS V72.31 Routine Gynecological Examination 04/18/2010 KATHYA SANTANA DDS 616.10 Vaginitis And Vulvovaginitis, Unspecified 04/18/2010 KATHYA SANTANA DDS 788.1 Dysuria 04/18/2010 KATHYA SANTANA DDS V72.31 Routine Gynecological Examination 08/22/2010 461.9 Sinusitis Acute 08/22/2010 536.8 Dyspepsia And Other Specified Disorders Of Function Of Stomach 08/22/2010 461.9 Sinusitis Acute 08/22/2010 536.8 Dyspepsia And Other Specified Disorders Of Function Of Stomach 08/22/2010 LJ WILCOXS, KAELA F 461.9 Sinusitis Acute 08/22/2010 LJ DDS, KAELA F 536.8 Dyspepsia And Other Specified Disorders Of Function Of Stomach 08/22/2010 HUSAM ORLANDO APRN 461.9 Sinusitis Acute 08/22/2010 HUSAM ORLANDO APRN 536.8 Dyspepsia And Other Specified Disorders Of Function Of Stomach 08/22/2010 TIMOTHY MAP PLOTTER, WOLF S 461.9 Sinusitis Acute 08/22/2010 TIMOTHY MAP PLOTTER, WOLF S 536.8 Dyspepsia And Other Specified Disorders Of Function Of Stomach 08/22/2010 461.9 Sinusitis Acute 08/22/2010 536.8 Dyspepsia And Other Specified Disorders Of Function Of Stomach 08/22/2010 NICOLE DO, MORAIMA K 461.9 Sinusitis Acute 08/22/2010 NICOLE DO, MORAIMA K 536.8 Dyspepsia And Other Specified Disorders Of Function Of Stomach 08/22/2010 461.9 Sinusitis Acute 08/22/2010 536.8 Dyspepsia And Other Specified Disorders Of Function Of Stomach 08/22/2010 461.9 Sinusitis Acute 08/22/2010 536.8 Dyspepsia And Other Specified Disorders Of Function Of Stomach 08/22/2010 461.9 Sinusitis Acute 08/22/2010 536.8 Dyspepsia And Other Specified Disorders Of Function Of Stomach 08/22/2010 461.9 Sinusitis Acute 08/22/2010 536.8 Dyspepsia And Other Specified Disorders Of Function Of Stomach 08/22/2010 JUAREZ GREEN DDS 461.9 Sinusitis Acute 08/22/2010 JUAREZ GREEN DDS 536.8 Dyspepsia And Other Specified Disorders Of Function Of Stomach 08/22/2010 JUAREZ GREEN DDS 461.9 Sinusitis Acute 08/22/2010 JUAREZ GREEN DDS 536.8 Dyspepsia And Other Specified Disorders Of Function Of Stomach 08/22/2010 NICOLE DO MORAIMA K 461.9 Sinusitis Acute 08/22/2010 NICOLE DO MORAIMA K 536.8 Dyspepsia And Other Specified Disorders Of Function Of Stomach 08/22/2010 TIMOTHY MAP PLOTTER, WOLF S 461.9 Sinusitis Acute 08/22/2010 TIMOTHY MAP PLOTTER, WOLF S 536.8 Dyspepsia And Other Specified Disorders Of Function Of Stomach 08/22/2010 TIMOTHY MAP PLOTTER, WOLF S 461.9 Sinusitis Acute 08/22/2010 TIMOTHY MAP PLOTTER, WOLF S 536.8 Dyspepsia And Other Specified Disorders Of Function Of Stomach 08/22/2010 TIMOTHY MAP PLOTTER, WOLF S 461.9 Sinusitis Acute 08/22/2010 TIMOTHY MAP PLOTTER, WOLF S 536.8 Dyspepsia And Other Specified Disorders Of Function Of Stomach 08/22/2010 TIMOTHY MAP PLOTTER, WOLF S 461.9 Sinusitis Acute 08/22/2010 TIMOTHY GAINESN, WOLF S 536.8 Dyspepsia And Other Specified Disorders Of Function Of Stomach 08/22/2010 TIMOTHY MAP PLOTTER, WOLF S 461.9 Sinusitis Acute 08/22/2010 TIMOTHY MAP PLOTTER, WOLF S 536.8 Dyspepsia And Other Specified Disorders Of Function Of Stomach 08/22/2010 GAGANDEEP WILCOXS, MELISSA J 461.9 Sinusitis Acute 08/22/2010 GAGANDEEP WILCOXS, MELISSA J 536.8 Dyspepsia And Other Specified Disorders Of Function Of Stomach 08/22/2010 BRITNEY WILCOXS MARIA LUISA 461.9 Sinusitis Acute 08/22/2010 TAN DDS, MARIA LUISA 536.8 Dyspepsia And Other Specified Disorders Of Function Of Stomach 08/22/2010 HUSAM ORLANDO APRN 461.9 Sinusitis Acute 08/22/2010 HUSAM ORLANDO APRN 536.8 Dyspepsia And Other Specified Disorders Of Function Of Stomach 08/22/2010 TIMOTHY KAN, WOLF S 461.9 Sinusitis Acute 08/22/2010 TIMOTHY KAN, WOLF S 536.8 Dyspepsia And Other Specified Disorders Of Function Of Stomach 08/22/2010 TIMOTHY MAP PLOTTER, WOLF S 461.9 Sinusitis Acute 08/22/2010 TIMOTHY GAINESN, WOLF S 536.8 Dyspepsia And Other Specified Disorders Of Function Of Stomach 08/22/2010 KADY MATTHEWS MD 461.9 Sinusitis Acute 08/22/2010 KADY MATTHEWS MD 536.8 Dyspepsia And Other Specified Disorders Of Function Of Stomach 08/22/2010 TIMOTHY GAINESN, WOLF S 461.9 Sinusitis Acute 08/22/2010 TIMOTHY MAP PLOTTER, WOLF S 536.8 Dyspepsia And Other Specified Disorders Of Function Of Stomach 08/22/2010 TIMOTHY MAP PLOTTER, WOLF S 461.9 Sinusitis Acute 08/22/2010 TIMOTHY MAP PLOTTER, WOLF S 536.8 Dyspepsia And Other Specified Disorders Of Function Of Stomach 08/22/2010 TAN DDS, MARIA LUISA 461.9 Sinusitis Acute 08/22/2010 TAN DDS, MARIA LUISA 536.8 Dyspepsia And Other Specified Disorders Of Function Of Stomach 08/22/2010 MAX DDS, KATHYA D 461.9 Sinusitis Acute 08/22/2010 MAX DDS, KATHYA D 536.8 Dyspepsia And Other Specified Disorders Of Function Of Stomach 10/24/2010 466.0 Acute Bronchitis 10/24/2010 466.0 Acute Bronchitis 10/24/2010 LJ DDS, KAELA Rdz 466.0 Acute Bronchitis 10/24/2010 HUSAM ORLANDO APRN 466.0 Acute Bronchitis 10/24/2010 TIMOTHY MAP PLOTTER, WOLF S 466.0 Acute Bronchitis 10/24/2010 466.0 Acute Bronchitis 10/24/2010 MORAIMA NICOLE DO K 466.0 Acute Bronchitis 10/24/2010 466.0 Acute Bronchitis 10/24/2010 466.0 Acute Bronchitis 10/24/2010 466.0 Acute Bronchitis 10/24/2010 466.0 Acute Bronchitis 10/24/2010 NORMA DDS, JUAREZ Pierre 466.0 Acute Bronchitis 10/24/2010 NORMA DDS, JUAREZ Pierre 466.0 Acute Bronchitis 10/24/2010 MORAIMA NICOLE DO K 466.0 Acute Bronchitis 10/24/2010 TIMOTHY MAP PLOTTER, WOLF S 466.0 Acute Bronchitis 10/24/2010 TIMOTHY MAP PLOTTER, WOLF S 466.0 Acute Bronchitis 10/24/2010 TIMOTHY MAP PLOTTER, WOLF S 466.0 Acute Bronchitis 10/24/2010 TIMOTHY MAP PLOTTER, WOLF S 466.0 Acute Bronchitis 10/24/2010 TIMOTHY MAP PLOTTER, WOLF S 466.0 Acute Bronchitis 10/24/2010 GAGANDEEP WILCOXS, MELISSA Raymundo 466.0 Acute Bronchitis 10/24/2010 BRITNEY WILCOXS, MARIA LUISA 466.0 Acute Bronchitis 10/24/2010 HUSAM ORLANDO APRN 466.0 Acute Bronchitis 10/24/2010 TIMOTHY KAN, WOLF S 466.0 Acute Bronchitis 10/24/2010 TIMOTHY KAN, WOLF S 466.0 Acute Bronchitis 10/24/2010 CASSIE DOMINGUEZ, KADY Raymundo 466.0 Acute Bronchitis 10/24/2010 TIMOTHY MAP PLOTTER, WOLF S 466.0 Acute Bronchitis 10/24/2010 TIMOTHY GAINESN, WOLF S 466.0 Acute Bronchitis 10/24/2010 BRITNEY WILCOXS, MARIA LUISA 466.0 Acute Bronchitis 10/24/2010 MAX WILCOXS, KATHYA Chopra 466.0 Acute Bronchitis 12/05/2010 826.0 Closed Fracture Of One Or More Phalanges Of Foot 12/05/2010 826.0 Closed Fracture Of One Or More Phalanges Of Foot 12/05/2010 LJ WILCOXS, KAELA F 826.0 Closed Fracture Of One Or More Phalanges Of Foot 12/05/2010 HUSAM ORLANDO APRN 826.0 Closed Fracture Of One Or More Phalanges Of Foot 12/05/2010 WOLF AGUIRRE APRN S 826.0 Closed Fracture Of One Or More Phalanges Of Foot 12/05/2010 826.0 Closed Fracture Of One Or More Phalanges Of Foot 12/05/2010 MORAIMA NICOLE DO 826.0 Closed Fracture Of One Or More Phalanges Of Foot 12/05/2010 826.0 Closed Fracture Of One Or More Phalanges Of Foot 12/05/2010 826.0 Closed Fracture Of One Or More Phalanges Of Foot 12/05/2010 826.0 Closed Fracture Of One Or More Phalanges Of Foot 12/05/2010 826.0 Closed Fracture Of One Or More Phalanges Of Foot 12/05/2010 JUAREZ GREEN DDS 826.0 Closed Fracture Of One Or More Phalanges Of Foot 12/05/2010 JUAREZ GREEN DDS 826.0 Closed Fracture Of One Or More Phalanges Of Foot 12/05/2010 MORAIMA NICOLE DO 826.0 Closed Fracture Of One Or More Phalanges Of Foot 12/05/2010 WOLF AGUIRRE APRN S 826.0 Closed Fracture Of One Or More Phalanges Of Foot 12/05/2010 TIMOTHY MAP PLOTTER, WOLF S 826.0 Closed Fracture Of One Or More Phalanges Of Foot 12/05/2010 TIMOTHY MAP PLOTTER, WOLF S 826.0 Closed Fracture Of One Or More Phalanges Of Foot 12/05/2010 TIMOTHY MAP PLOTTER, WOLF S 826.0 Closed Fracture Of One Or More Phalanges Of Foot 12/05/2010 TIMOTHY MAP PLOTTER, WOLF S 826.0 Closed Fracture Of One Or More Phalanges Of Foot 12/05/2010 GAGANDEEP MARTINES, MELISSA Raymundo 826.0 Closed Fracture Of One Or More Phalanges Of Foot 12/05/2010 MARIA LUISA TAN DDS 826.0 Closed Fracture Of One Or More Phalanges Of Foot 12/05/2010 HUSAM ORLANDO APRN 826.0 Closed Fracture Of One Or More Phalanges Of Foot 12/05/2010 TIMOTHY MAP PLOTTER, WOLF S 826.0 Closed Fracture Of One Or More Phalanges Of Foot 12/05/2010 TIMOTHY MAP PLOTTER, WOLF S 826.0 Closed Fracture Of One Or More Phalanges Of Foot 12/05/2010 CASSIE DOMINGUEZ, KADY Raymundo 826.0 Closed Fracture Of One Or More Phalanges Of Foot 12/05/2010 TIMOTHY MAP PLOTTER, OWLF S 826.0 Closed Fracture Of One Or More Phalanges Of Foot 12/05/2010 TIMOTHY MAP PLOTTER, WOLF S 826.0 Closed Fracture Of One Or More Phalanges Of Foot 12/05/2010 MARIA LUISA TAN DDS 826.0 Closed Fracture Of One Or More Phalanges Of Foot 12/05/2010 MAX MARTINES, KATHYA Chopra 826.0 Closed Fracture Of One Or More Phalanges Of Foot 11/03/2011 465.9 Upper Respiratory Infection 11/03/2011 465.9 Upper Respiratory Infection 11/03/2011 LJ MARTINES, KAELA Rdz 465.9 Upper Respiratory Infection 11/03/2011 HUSAM ORLANDO APRN 465.9 Upper Respiratory Infection 11/03/2011 TIMOTHY KAN, WOLF S 465.9 Upper Respiratory Infection 11/03/2011 465.9 Upper Respiratory Infection 11/03/2011 MORAIMA NICOLE DO 465.9 Upper Respiratory Infection 11/03/2011 465.9 Upper Respiratory Infection 11/03/2011 465.9 Upper Respiratory Infection 11/03/2011 465.9 Upper Respiratory Infection 11/03/2011 465.9 Upper Respiratory Infection 11/03/2011 NORMA DDS, JUAREZ M 465.9 Upper Respiratory Infection 11/03/2011 NORMA DDS, JUAREZ M 465.9 Upper Respiratory Infection 11/03/2011 BONNIE LOCKETT MORAIMA K 465.9 Upper Respiratory Infection 11/03/2011 TIMOTHY MAP PLOTTER, WOLF S 465.9 Upper Respiratory Infection 11/03/2011 TIMOTHY MAP PLOTTER, WOLF S 465.9 Upper Respiratory Infection 11/03/2011 TIMOTHY MAP PLOTTER, WOLF S 465.9 Upper Respiratory Infection 11/03/2011 TIMOTHY MAP PLOTTER, WOLF S 465.9 Upper Respiratory Infection 11/03/2011 TIMOTHY MAP PLOTTER, WOLF S 465.9 Upper Respiratory Infection 11/03/2011 GAGANDEEP MARTINES, MELISSA Raymundo 465.9 Upper Respiratory Infection 11/03/2011 MARIA LUISA TAN DDS 465.9 Upper Respiratory Infection 11/03/2011 HUSAM ORLANDO APRN 465.9 Upper Respiratory Infection 11/03/2011 TIMOTHY MAP PLOTTER, WOLF S 465.9 Upper Respiratory Infection 11/03/2011 TIMOTHY MAP PLOTTER, WOLF S 465.9 Upper Respiratory Infection 11/03/2011 KADY MATTHEWS MD 465.9 Upper Respiratory Infection 11/03/2011 TIMOTHY MAP PLOTTER, WOLF S 465.9 Upper Respiratory Infection 11/03/2011 TIMOTHY MAP PLOTTER, WOLF S 465.9 Upper Respiratory Infection 11/03/2011 MARIA LUISA TAN DDS 465.9 Upper Respiratory Infection 11/03/2011 MAX MARTINES, KATHYA Chopra 465.9 Upper Respiratory Infection 11/28/2011 V04.81 FLU DX (MEDICARE ONLY) 11/28/2011 V04.81 FLU DX (MEDICARE ONLY) 11/28/2011 JL MARTINES, KAELA Rdz V04.81 FLU DX (MEDICARE ONLY) 11/28/2011 HUSAM ORLANDO APRN V04.81 FLU DX (MEDICARE ONLY) 11/28/2011 HAFSA AGUIRRE APRNNDA S V04.81 FLU DX (MEDICARE ONLY) 11/28/2011 V04.81 FLU DX (MEDICARE ONLY) 11/28/2011 MORAIMA NICLOE DO V04.81 FLU DX (MEDICARE ONLY) 11/28/2011 V04.81 FLU DX (MEDICARE ONLY) 11/28/2011 V04.81 FLU DX (MEDICARE ONLY) 11/28/2011 V04.81 FLU DX (MEDICARE ONLY) 11/28/2011 V04.81 FLU DX (MEDICARE ONLY) 11/28/2011 JUAREZ GREEN DDS V04.81 FLU DX (MEDICARE ONLY) 11/28/2011 JUAREZ GREEN DDS V04.81 FLU DX (MEDICARE ONLY) 11/28/2011 MORAIMA NICOLE DO V04.81 FLU DX (MEDICARE ONLY) 11/28/2011 TIMOTHY MAP PLOTTER, WOLF S V04.81 FLU DX (MEDICARE ONLY) 11/28/2011 TIMOTHY MAP PLOTTER, WOLF S V04.81 FLU DX (MEDICARE ONLY) 11/28/2011 TIMOTHY MAP PLOTTER, WOLF S V04.81 FLU DX (MEDICARE ONLY) 11/28/2011 TIMOTHY MAP PLOTTER, WOLF S V04.81 FLU DX (MEDICARE ONLY) 11/28/2011 TIMOTHY MAP PLOTTER, WOLF S V04.81 FLU DX (MEDICARE ONLY) 11/28/2011 MELISSA DONIS DDS V04.81 FLU DX (MEDICARE ONLY) 11/28/2011 MARIA LUISA TAN DDS V04.81 FLU DX (MEDICARE ONLY) 11/28/2011 HUSAM ORLANDO APRN V04.81 FLU DX (MEDICARE ONLY) 11/28/2011 TIMOTHY MAP PLOTTER, WOLF S V04.81 FLU DX (MEDICARE ONLY) 11/28/2011 TIMOTHY MAP PLOTTER, WOLF S V04.81 FLU DX (MEDICARE ONLY) 11/28/2011 CASSIE DOMINGUEZ, KADY Raymundo V04.81 FLU DX (MEDICARE ONLY) 11/28/2011 TIMOTHY MAP PLOTTER, WOLF S V04.81 FLU DX (MEDICARE ONLY) 11/28/2011 TIMOTHY MAP PLOTTER, WOLF S V04.81 FLU DX (MEDICARE ONLY) 11/28/2011 MARIA LUISA TAN DDS V04.81 FLU DX (MEDICARE ONLY) 11/28/2011 MAX MARTINES, KATHYA Keysha V04.81 FLU DX (MEDICARE ONLY) 02/21/2012 427.9 CARDIAC DYSRHYTHMIA UNSPECIFIED 02/21/2012 788.1 DYSURIA 02/21/2012 427.9 CARDIAC DYSRHYTHMIA UNSPECIFIED 02/21/2012 788.1 DYSURIA 02/21/2012 LJ WILCOXS, KAELA F 427.9 CARDIAC DYSRHYTHMIA UNSPECIFIED 02/21/2012 LJ DDS, KAELA F 788.1 DYSURIA 02/21/2012 HUSAM ORLANDO APRN 427.9 CARDIAC DYSRHYTHMIA UNSPECIFIED 02/21/2012 HUSAM ORLANDO APRN 788.1 DYSURIA 02/21/2012 WOLF AGUIRRE APRN S 427.9 CARDIAC DYSRHYTHMIA UNSPECIFIED 02/21/2012 YU AGUIRRE APRNA S 788.1 DYSURIA 02/21/2012 427.9 CARDIAC DYSRHYTHMIA UNSPECIFIED 02/21/2012 788.1 DYSURIA 02/21/2012 LILLIAN NICOLE DOA K 427.9 CARDIAC DYSRHYTHMIA UNSPECIFIED 02/21/2012 LILLIAN NICOLE DOA K 788.1 DYSURIA 02/21/2012 427.9 CARDIAC DYSRHYTHMIA UNSPECIFIED 02/21/2012 788.1 DYSURIA 02/21/2012 427.9 CARDIAC DYSRHYTHMIA UNSPECIFIED 02/21/2012 788.1 DYSURIA 02/21/2012 427.9 CARDIAC DYSRHYTHMIA UNSPECIFIED 02/21/2012 788.1 DYSURIA 02/21/2012 427.9 CARDIAC DYSRHYTHMIA UNSPECIFIED 02/21/2012 788.1 DYSURIA 02/21/2012 JUAREZ GREEN DDS 427.9 CARDIAC DYSRHYTHMIA UNSPECIFIED 02/21/2012 JUAREZ GREEN DDS 788.1 DYSURIA 02/21/2012 JUAREZ GREEN DDS 427.9 CARDIAC DYSRHYTHMIA UNSPECIFIED 02/21/2012 JUAREZ GREEN DDS 788.1 DYSURIA 02/21/2012 LILLIAN NICOLE DOA K 427.9 CARDIAC DYSRHYTHMIA UNSPECIFIED 02/21/2012 LILLIAN NICOLE DOA K 788.1 DYSURIA 02/21/2012 TIMOTHY MAP PLOTTER, WOLF S 427.9 CARDIAC DYSRHYTHMIA UNSPECIFIED 02/21/2012 TIMOTHY MAP PLOTTER, WOLF S 788.1 DYSURIA 02/21/2012 TIMOTHY MAP PLOTTER, WOLF S 427.9 CARDIAC DYSRHYTHMIA UNSPECIFIED 02/21/2012 TIMOTHY MAP PLOTTER, WOLF S 788.1 DYSURIA 02/21/2012 TIMOTHY MAP PLOTTER, WOLF S 427.9 CARDIAC DYSRHYTHMIA UNSPECIFIED 02/21/2012 TIMOTHY MAP PLOTTER, WOLF S 788.1 DYSURIA 02/21/2012 TIMOTHY MAP PLOTTER, WOLF S 427.9 CARDIAC DYSRHYTHMIA UNSPECIFIED 02/21/2012 TIMOTHY MAP PLOTTER, WOLF S 788.1 DYSURIA 02/21/2012 TIMOTHY MAP PLOTTER, WOLF S 427.9 CARDIAC DYSRHYTHMIA UNSPECIFIED 02/21/2012 TIMOTHY MAP PLOTTER, WOLF S 788.1 DYSURIA 02/21/2012 GAGANDEEP DDS, MELISSA J 427.9 CARDIAC DYSRHYTHMIA UNSPECIFIED 02/21/2012 WHITE DDS, MELISSA J 788.1 DYSURIA 02/21/2012 TAN DDS, MARIA LUISA 427.9 CARDIAC DYSRHYTHMIA UNSPECIFIED 02/21/2012 TAN DDS, MARIA LUISA 788.1 DYSURIA 02/21/2012 HUSAM ORLANDO APRN T 427.9 CARDIAC DYSRHYTHMIA UNSPECIFIED 02/21/2012 HUSAM ORLANDO APRN T 788.1 DYSURIA 02/21/2012 TIMOTHY GAINESN, WOLF S 427.9 CARDIAC DYSRHYTHMIA UNSPECIFIED 02/21/2012 TIMOTHY GAINESN, WOLF S 788.1 DYSURIA 02/21/2012 TIMOTHY MAP PLOTTER, WOLF S 427.9 CARDIAC DYSRHYTHMIA UNSPECIFIED 02/21/2012 TIMOTHY MAP PLOTTER, WOLF S 788.1 DYSURIA 02/21/2012 CASSIE DOMINGUEZ, KADY J 427.9 CARDIAC DYSRHYTHMIA UNSPECIFIED 02/21/2012 CASSIE DOMINGUEZ, KADY J 788.1 DYSURIA 02/21/2012 TIMOTHY GAINESN, WOLF S 427.9 CARDIAC DYSRHYTHMIA UNSPECIFIED 02/21/2012 TIMOTHY KAN, WOLF S 788.1 DYSURIA 02/21/2012 TIMOTHY KAN, WOLF S 427.9 CARDIAC DYSRHYTHMIA UNSPECIFIED 02/21/2012 TIMOTHY GAINESN, WOLF S 788.1 DYSURIA 02/21/2012 TAN DDS, MARIA LUISA 427.9 CARDIAC DYSRHYTHMIA UNSPECIFIED 02/21/2012 TAN DDS, MARIA LUISA 788.1 DYSURIA 02/21/2012 MAX DDS, KATHYA D 427.9 CARDIAC DYSRHYTHMIA UNSPECIFIED 02/21/2012 MAX DDS, KATHYA D 788.1 DYSURIA 11/11/2012 789.03 ABDOMINAL PAIN RIGHT LOWER QUADRANT 11/11/2012 LJ DDS, KAELA Rdz 789.03 ABDOMINAL PAIN RIGHT LOWER QUADRANT 11/11/2012 HUSAM ORLNADO APRN 789.03 ABDOMINAL PAIN RIGHT LOWER QUADRANT 11/11/2012 TIMOTHY KAN, WOLF S 789.03 ABDOMINAL PAIN RIGHT LOWER QUADRANT 11/11/2012 789.03 ABDOMINAL PAIN RIGHT LOWER QUADRANT 11/11/2012 MORAIMA NICOEL DO K 789.03 ABDOMINAL PAIN RIGHT LOWER QUADRANT 11/11/2012 789.03 ABDOMINAL PAIN RIGHT LOWER QUADRANT 11/11/2012 789.03 ABDOMINAL PAIN RIGHT LOWER QUADRANT 11/11/2012 789.03 ABDOMINAL PAIN RIGHT LOWER QUADRANT 11/11/2012 789.03 ABDOMINAL PAIN RIGHT LOWER QUADRANT 11/11/2012 NORMA DDSJUAREZ 789.03 ABDOMINAL PAIN RIGHT LOWER QUADRANT 11/11/2012 NORMA DDSJUAREZ 789.03 ABDOMINAL PAIN RIGHT LOWER QUADRANT 11/11/2012 MORAIMA NICOLE DO K 789.03 ABDOMINAL PAIN RIGHT LOWER QUADRANT 11/11/2012 TIMOTHY KAN, WOLF S 789.03 ABDOMINAL PAIN RIGHT LOWER QUADRANT 11/11/2012 TIMOTHY KAN, WOLF S 789.03 ABDOMINAL PAIN RIGHT LOWER QUADRANT 11/11/2012 TIMOTHY KAN, WOLF S 789.03 ABDOMINAL PAIN RIGHT LOWER QUADRANT 11/11/2012 TIMOTHY KAN, WOLF S 789.03 ABDOMINAL PAIN RIGHT LOWER QUADRANT 11/11/2012 TIMOTHY KAN, WOLF S 789.03 ABDOMINAL PAIN RIGHT LOWER QUADRANT 11/11/2012 GAGANDEEP DDS, MELISSA Raymundo 789.03 ABDOMINAL PAIN RIGHT LOWER QUADRANT 11/11/2012 BRITNEY DDS, MARIA LUISA 789.03 ABDOMINAL PAIN RIGHT LOWER QUADRANT 11/11/2012 HUSAM ORLANDO APRN 789.03 ABDOMINAL PAIN RIGHT LOWER QUADRANT 11/11/2012 TIMOTHY KAN, WOLF S 789.03 ABDOMINAL PAIN RIGHT LOWER QUADRANT 11/11/2012 TIMOTHY KAN, WOLF S 789.03 ABDOMINAL PAIN RIGHT LOWER QUADRANT 11/11/2012 CASSIE DOMINGUEZ, KADY Raymundo 789.03 ABDOMINAL PAIN RIGHT LOWER QUADRANT 11/11/2012 TIMOTHY KAN, WOLF S 789.03 ABDOMINAL PAIN RIGHT LOWER QUADRANT 11/11/2012 TIMOTHY KAN, WOLF S 789.03 ABDOMINAL PAIN RIGHT LOWER QUADRANT 11/11/2012 TAN DDS, MARIA LUISA 789.03 ABDOMINAL PAIN RIGHT LOWER QUADRANT 11/11/2012 MAX DDS, KATHYA Chopra 789.03 ABDOMINAL PAIN RIGHT LOWER QUADRANT 11/20/2012 LJ DDS, KAELA F 564.00 UNSPECIFIED CONSTIPATION 11/20/2012 LJ DDS, KAELA F 784.42 DYSPHONIA 11/20/2012 HUSAM ORLANDO APRN 564.00 UNSPECIFIED CONSTIPATION 11/20/2012 HUSAM ORLANDO APRN 784.42 DYSPHONIA 11/20/2012 YU AGUIRRE APRNA S 564.00 UNSPECIFIED CONSTIPATION 11/20/2012 WOLF AGUIRRE APRN S 784.42 DYSPHONIA 11/20/2012 564.00 UNSPECIFIED CONSTIPATION 11/20/2012 784.42 DYSPHONIA 11/20/2012 NICOLE DOMORAIMA K 564.00 UNSPECIFIED CONSTIPATION 11/20/2012 NICOLE DOMORAIMA K 784.42 DYSPHONIA 11/20/2012 564.00 UNSPECIFIED CONSTIPATION 11/20/2012 784.42 DYSPHONIA 11/20/2012 564.00 UNSPECIFIED CONSTIPATION 11/20/2012 784.42 DYSPHONIA 11/20/2012 564.00 UNSPECIFIED CONSTIPATION 11/20/2012 784.42 DYSPHONIA 11/20/2012 564.00 UNSPECIFIED CONSTIPATION 11/20/2012 784.42 DYSPHONIA 11/20/2012 NORMA DDS, JUAREZ Pierre 564.00 UNSPECIFIED CONSTIPATION 11/20/2012 NORMA DDS, JUAREZ M 784.42 DYSPHONIA 11/20/2012 NORMA DDS, JUAREZ Pierre 564.00 UNSPECIFIED CONSTIPATION 11/20/2012 NORMA DDS, JUAREZ M 784.42 DYSPHONIA 11/20/2012 NICOLE DO, MORAIMA K 564.00 UNSPECIFIED CONSTIPATION 11/20/2012 NICOLE DO, MORAIMA K 784.42 DYSPHONIA 11/20/2012 TIMOTHY MAP PLOTTER, WOLF S 564.00 UNSPECIFIED CONSTIPATION 11/20/2012 TIMOTHY MAP PLOTTER, WOLF S 784.42 DYSPHONIA 11/20/2012 TIMOTHY MAP PLOTTER, WOLF S 564.00 UNSPECIFIED CONSTIPATION 11/20/2012 TIMOTHY MAP PLOTTER, WOLF S 784.42 DYSPHONIA 11/20/2012 TIMOTHY MAP PLOTTER, WOLF S 564.00 UNSPECIFIED CONSTIPATION 11/20/2012 TIMOTHY GAINESN, WOLF S 784.42 DYSPHONIA 11/20/2012 TIMOTHY MAP PLOTTER, WOLF S 564.00 UNSPECIFIED CONSTIPATION 11/20/2012 TIMOTHY MAP PLOTTER, WOLF S 784.42 DYSPHONIA 11/20/2012 TIMOTHY MAP PLOTTER, WOLF S 564.00 UNSPECIFIED CONSTIPATION 11/20/2012 TIMOTHY MAP PLOTTER, WOLF S 784.42 DYSPHONIA 11/20/2012 WHITE DDS, MELISSA J 564.00 UNSPECIFIED CONSTIPATION 11/20/2012 WHITE DDS, MELISSA J 784.42 DYSPHONIA 11/20/2012 TAN DDS, MARIA LUISA 564.00 UNSPECIFIED CONSTIPATION 11/20/2012 TAN DDS, MARIA LUISA 784.42 DYSPHONIA 11/20/2012 HUSAM ORLANDO APRN 564.00 UNSPECIFIED CONSTIPATION 11/20/2012 HUSAM ORLANDO APRN 784.42 DYSPHONIA 11/20/2012 TIMOTHY KAN, WOLF S 564.00 UNSPECIFIED CONSTIPATION 11/20/2012 TIMOTHY KAN, WOLF S 784.42 DYSPHONIA 11/20/2012 TIMOTHY KAN, WOLF S 564.00 UNSPECIFIED CONSTIPATION 11/20/2012 TIMOTHY GAINESN, WOLF S 784.42 DYSPHONIA 11/20/2012 CASSIE DOMINGUEZ, KADY Ramyundo 564.00 UNSPECIFIED CONSTIPATION 11/20/2012 CASSIE DOMINGUEZ, KADY Raymundo 784.42 DYSPHONIA 11/20/2012 TIMOTHY MAP PLOTTER, WOLF S 564.00 UNSPECIFIED CONSTIPATION 11/20/2012 TIMOTHY MAP PLOTTER, WOLF S 784.42 DYSPHONIA 11/20/2012 TIMOTHY MAP PLOTTER, WOLF S 564.00 UNSPECIFIED CONSTIPATION 11/20/2012 TIMOTHY MAP PLOTTER, WOLF S 784.42 DYSPHONIA 11/20/2012 TAN DDS, MARIA LUISA 564.00 UNSPECIFIED CONSTIPATION 11/20/2012 TAN DDS, MARIA LUISA 784.42 DYSPHONIA 11/20/2012 MAX DDS, KATHYA D 564.00 UNSPECIFIED CONSTIPATION 11/20/2012 MAX DDS, KATHYA D 784.42 DYSPHONIA 01/03/2013 HUSAM ORLANDO APRN 465.9 UPPER RESPIRATORY INFECTION 01/03/2013 TIMOTHY KAN, WOLF S 465.9 UPPER RESPIRATORY INFECTION 01/03/2013 465.9 UPPER RESPIRATORY INFECTION 01/03/2013 MORAIMA NICOLE DO 465.9 UPPER RESPIRATORY INFECTION 01/03/2013 465.9 UPPER RESPIRATORY INFECTION 01/03/2013 465.9 UPPER RESPIRATORY INFECTION 01/03/2013 465.9 UPPER RESPIRATORY INFECTION 01/03/2013 465.9 UPPER RESPIRATORY INFECTION 01/03/2013 JUAREZ GREEN DDS 465.9 UPPER RESPIRATORY INFECTION 01/03/2013 JUAREZ GREEN DDS 465.9 UPPER RESPIRATORY INFECTION 01/03/2013 MORAIMA NICOLE DO 465.9 UPPER RESPIRATORY INFECTION 01/03/2013 TIMOTHY KAN, WOLF S 465.9 UPPER RESPIRATORY INFECTION 01/03/2013 TIMOTHY GAINESN, WOLF S 465.9 UPPER RESPIRATORY INFECTION 01/03/2013 TIMOTHY MAP PLOTTER, WOLF S 465.9 UPPER RESPIRATORY INFECTION 01/03/2013 TIMOTHY GAINESN, WOLF S 465.9 UPPER RESPIRATORY INFECTION 01/03/2013 TIMOTHY GAINESN, WOLF S 465.9 UPPER RESPIRATORY INFECTION 01/03/2013 GAGANDEEP DDS, MELISSA J 465.9 UPPER RESPIRATORY INFECTION 01/03/2013 BRITNEY DDS, MARIA LUISA 465.9 UPPER RESPIRATORY INFECTION 01/03/2013 JOHANNY MAP PLOTTER, HUSAM Hall 465.9 UPPER RESPIRATORY INFECTION 01/03/2013 TIMOTHY MAP PLOTTER, WOLF S 465.9 UPPER RESPIRATORY INFECTION 01/03/2013 TIMOTHY MAP PLOTTER, WOLF S 465.9 UPPER RESPIRATORY INFECTION 01/03/2013 CASSIE DOMINGUEZ, KADY Raymundo 465.9 UPPER RESPIRATORY INFECTION 01/03/2013 TIMOTHY MAP PLOTTER, WOLF S 465.9 UPPER RESPIRATORY INFECTION 01/03/2013 TIMOTHY MAP PLOTTER, WOLF S 465.9 UPPER RESPIRATORY INFECTION 01/03/2013 BRITNEY DDS, MARIA LUISA 465.9 UPPER RESPIRATORY INFECTION 01/03/2013 MAX DDS, KATHYA Chopra 465.9 UPPER RESPIRATORY INFECTION 02/03/2013 873.8 OTHER AND UNSPECIFIED OPEN WOUND OF HEAD WITHOUT COMPLICATION 02/03/2013 MORAIMA NICOLE DO 873.8 Other And Unspecified Open Wound Of Head Without Complication 02/03/2013 873.8 Other And Unspecified Open Wound Of Head Without Complication 02/03/2013 873.8 Other And Unspecified Open Wound Of Head Without Complication 02/03/2013 873.8 Other And Unspecified Open Wound Of Head Without Complication 02/03/2013 873.8 Other And Unspecified Open Wound Of Head Without Complication 02/03/2013 NORMA WILCOXS, JUAREZ Pierre 873.8 Other And Unspecified Open Wound Of Head Without Complication 02/03/2013 NORMA WILCOXS, JUAREZ Pierre 873.8 Other And Unspecified Open Wound Of Head Without Complication 02/03/2013 MORAIMA NICOLE DO 873.8 Other And Unspecified Open Wound Of Head Without Complication 02/03/2013 TIMOTHY MAP PLOTTER, WOLF S 873.8 Other And Unspecified Open Wound Of Head Without Complication 02/03/2013 TIMOTHY MAP PLOTTER, WOLF S 873.8 Other And Unspecified Open Wound Of Head Without Complication 02/03/2013 TIMOTHY MAP PLOTTER, WOLF S 873.8 Other And Unspecified Open Wound Of Head Without Complication 02/03/2013 TIMOTHY MAP PLOTTER, WOLF S 873.8 Other And Unspecified Open Wound Of Head Without Complication 02/03/2013 TIMOTHY MAP PLOTTER, WOLF S 873.8 Other And Unspecified Open Wound Of Head Without Complication 02/03/2013 GAGANDEEP DDS, MELISSA Raymundo 873.8 Other And Unspecified Open Wound Of Head Without Complication 02/03/2013 TAN DDS, MARIA LUISA 873.8 Other And Unspecified Open Wound Of Head Without Complication 02/03/2013 JOHANNY GAINESN, HUSAM Hall 873.8 Other And Unspecified Open Wound Of Head Without Complication 02/03/2013 TIMOTHY MAP PLOTTER, WOLF S 873.8 Other And Unspecified Open Wound Of Head Without Complication 02/03/2013 TIMOTHY MAP PLOTTER, WOLF S 873.8 Other And Unspecified Open Wound Of Head Without Complication 02/03/2013 CASSIE DOMINGUEZ, KADY Raymundo 873.8 Other And Unspecified Open Wound Of Head Without Complication 02/03/2013 TIMOTHY MAP PLOTTER, WOLF S 873.8 Other And Unspecified Open Wound Of Head Without Complication 02/03/2013 TIMOTHY MAP PLOTTER, WOLF S 873.8 Other And Unspecified Open Wound Of Head Without Complication 02/03/2013 BRITNEY DDS, MARIA LUISA 873.8 Other And Unspecified Open Wound Of Head Without Complication 02/03/2013 MAX DDS, KATHYA Chopra 873.8 Other And Unspecified Open Wound Of Head Without Complication 02/10/2013 MORAIMA NICOLE DO V58.32 SUTURE REMOVAL 02/10/2013 V58.32 SUTURE REMOVAL 02/10/2013 V58.32 SUTURE REMOVAL 02/10/2013 V58.32 SUTURE REMOVAL 02/10/2013 V58.32 SUTURE REMOVAL 02/10/2013 NORMA DDSJUAREZ V58.32 SUTURE REMOVAL 02/10/2013 NORMA WILCOXS, JUAREZ Pierre V58.32 SUTURE REMOVAL 02/10/2013 MORAIMA NICOLE DO V58.32 SUTURE REMOVAL 02/10/2013 TIMOTHY MAP PLOTTER, WOLF S V58.32 SUTURE REMOVAL 02/10/2013 TIMOTHY MAP PLOTTER, WOLF S V58.32 SUTURE REMOVAL 02/10/2013 TIMOTHY MAP PLOTTER, WOLF S V58.32 SUTURE REMOVAL 02/10/2013 TIMOTHY MAP PLOTTER, WOLF S V58.32 SUTURE REMOVAL 02/10/2013 TIMOTHY MAP PLOTTER, WOLF S V58.32 SUTURE REMOVAL 02/10/2013 GAGANDEEP DDS, MELISSA Raymundo V58.32 SUTURE REMOVAL 02/10/2013 BRITNEY WILCOXS, MARIA LUISA V58.32 SUTURE REMOVAL 02/10/2013 JOHANNY KAN, HUSAM Hall V58.32 SUTURE REMOVAL 02/10/2013 TIMOTHY MAP PLOTTER, WOLF S V58.32 SUTURE REMOVAL 02/10/2013 TIMOTHY MAP PLOTTER, WOLF S V58.32 SUTURE REMOVAL 02/10/2013 CASSIE DOMINGUEZ, KADY Raymundo V58.32 SUTURE REMOVAL 02/10/2013 TIMOTHY MAP PLOTTER, WOLF S V58.32 SUTURE REMOVAL 02/10/2013 TIMOTHY MAP PLOTTER, WOLF S V58.32 SUTURE REMOVAL 02/10/2013 BRITNEY DDS, MARIA LUISA V58.32 SUTURE REMOVAL 02/10/2013 MAX WILCOXS, KATHYA Chopra V58.32 SUTURE REMOVAL 04/03/2013 V65.49 OTHER SPECIFIED COUNSELING 04/03/2013 V76.10 BREAST CANCER SCREENING 04/03/2013 V65.49 OTHER SPECIFIED COUNSELING 04/03/2013 V76.10 BREAST CANCER SCREENING 04/03/2013 V65.49 OTHER SPECIFIED COUNSELING 04/03/2013 V76.10 BREAST CANCER SCREENING 04/03/2013 NORMA DDSJUAREZ V65.49 OTHER SPECIFIED COUNSELING 04/03/2013 NORMA DDSJUAREZ V76.10 BREAST CANCER SCREENING 04/03/2013 NORMA DDJUAREZ Hoff V65.49 OTHER SPECIFIED COUNSELING 04/03/2013 NORMA DDSJUAREZ V76.10 BREAST CANCER SCREENING 04/03/2013 BONNIE DOMORAIMA V65.49 OTHER SPECIFIED COUNSELING 04/03/2013 NICOLE DOMORAIMA K V76.10 BREAST CANCER SCREENING 04/03/2013 TIMOTHY MAP PLOTTER, WOLF S V65.49 OTHER SPECIFIED COUNSELING 04/03/2013 TIMOTHY MAP PLOTTER, WOLF S V76.10 BREAST CANCER SCREENING 04/03/2013 TIMOTHY MAP PLOTTER, WOLF S V65.49 OTHER SPECIFIED COUNSELING 04/03/2013 TIMOTHY MAP PLOTTER, WOLF S V76.10 BREAST CANCER SCREENING 04/03/2013 TIMOTHY MAP PLOTTER, WOLF S V65.49 OTHER SPECIFIED COUNSELING 04/03/2013 TIMOTHY MAP PLOTTER, WOLF S V76.10 BREAST CANCER SCREENING 04/03/2013 TIMOTHY MAP PLOTTER, WOLF S V65.49 OTHER SPECIFIED COUNSELING 04/03/2013 TIMOTHY MAP PLOTTER, WOLF S V76.10 BREAST CANCER SCREENING 04/03/2013 TIMOTHY MAP PLOTTER, WOLF S V65.49 OTHER SPECIFIED COUNSELING 04/03/2013 TIMOTHY MAP PLOTTER, WOLF S V76.10 BREAST CANCER SCREENING 04/03/2013 GAGANDEEP DDSMELISSA V65.49 OTHER SPECIFIED COUNSELING 04/03/2013 GAGANDEEP DDSMELISSA V76.10 BREAST CANCER SCREENING 04/03/2013 TAN DDSMARIA LUISA V65.49 OTHER SPECIFIED COUNSELING 04/03/2013 TAN DDSMARIA LUISA V76.10 BREAST CANCER SCREENING 04/03/2013 HUSAM ORLANDO APRN V65.49 OTHER SPECIFIED COUNSELING 04/03/2013 HUSAM ORLANDO APRN V76.10 BREAST CANCER SCREENING 04/03/2013 TIMOTHY MAP PLOTTER, WOLF S V65.49 OTHER SPECIFIED COUNSELING 04/03/2013 TIMOTHY MAP PLOTTER, WOLF S V76.10 BREAST CANCER SCREENING 04/03/2013 TIMOTHY MAP PLOTTER, WOLF S V65.49 OTHER SPECIFIED COUNSELING 04/03/2013 TIMOTHY MAP PLOTTER, WOLF S V76.10 BREAST CANCER SCREENING 04/03/2013 KADY MATTHEWS MD V65.49 OTHER SPECIFIED COUNSELING 04/03/2013 KADY MATTHEWS MD V76.10 BREAST CANCER SCREENING 04/03/2013 TIMOTHY MAP PLOTTER, WOLF S V65.49 OTHER SPECIFIED COUNSELING 04/03/2013 TIMOTHY MAP PLOTTER, WOLF S V76.10 BREAST CANCER SCREENING 04/03/2013 TIMOTHY MAP PLOTTER, WOLF S V65.49 OTHER SPECIFIED COUNSELING 04/03/2013 TIMOTHY MAP PLOTTER, WOLF S V76.10 BREAST CANCER SCREENING 04/03/2013 TAN DDSMARIA LUISA V65.49 OTHER SPECIFIED COUNSELING 04/03/2013 TAN DDS, MARIA LUISA V76.10 BREAST CANCER SCREENING 04/03/2013 MAX MARTINES, KATHYA Chopra V65.49 OTHER SPECIFIED COUNSELING 04/03/2013 KATHYA SANTANA DDS V76.10 BREAST CANCER SCREENING 03/01/2014 CARITO DOMINGUEZ, BOB Pierre Ot 272.4 HYPERLIPIDEMIA NEC/NOS 03/01/2014 CARITO DOMINGUEZ, BOB Pierre Ot 311 DEPRESSIVE DISORDER NEC 03/01/2014 CARITO DOMINGUEZ, BOB Pierre Ot 564.00 UNSPEC CONSTIPATION 10/13/2014 HUSAM ORLANDO APRN T 723.1 PAIN NECK 10/13/2014 WOLF AGUIRRE APRN S 723.1 PAIN NECK 10/13/2014 WOLF AGUIRRE APRN S 723.1 PAIN NECK 10/13/2014 KADY MATTHEWS MD 723.1 PAIN NECK 10/13/2014 WOLF AGUIRRE APRN S 723.1 PAIN NECK 10/13/2014 YU AGUIRRE APRNA S 723.1 PAIN NECK 10/13/2014 MARIA LUISA TAN DDS 723.1 PAIN NECK 10/13/2014 KATHYA SANTANA DDS 723.1 PAIN NECK 10/18/2014 HAFSA AGUIRRE APRNNDA S 535.50 GASTRITIS UNSPEC 10/18/2014 YU AGUIRRE APRNA S 535.50 GASTRITIS UNSPEC 10/18/2014 KADY MATTHEWS MD 535.50 GASTRITIS UNSPEC 10/18/2014 YU AGUIRRE APRNA S 535.50 GASTRITIS UNSPEC 10/18/2014 HAFSA AGUIRRE APRNNDA S 535.50 GASTRITIS UNSPEC 10/18/2014 MARIA LUISA TAN DDS 535.50 GASTRITIS UNSPEC 10/18/2014 KATHYA SANTANA DDS 535.50 GASTRITIS UNSPEC 11/07/2014 KADY MATTHEWS MD Ot 272.0 PURE HYPERCHOLESTEROLEM 11/07/2014 KADY MATTHEWS MD Ot 401.9 HYPERTENSION NOS 11/07/2014 KADY MATTHEWS MD Ot 414.01 CORONARY ATHEROSCLEROSIS OF [place] CORON 11/07/2014 KADY MATTHEWS MD Ot 427.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 NEC 11/07/2014 KADY MATTHEWS MD Ot 530.81 ESOPHAGEAL REFLUX 11/07/2014 CASSIE DOMINGUEZ, KADY Raymundo Ot 558.9 NONINF GASTROENTERIT NEC 11/07/2014 CASSIE DOMINGUEZ, KADY Raymundo Ot 564.00 UNSPEC CONSTIPATION 11/07/2014 CASSIE DOMINGUEZ, KADY Raymundo Ot V04.81 ND FOR PROPHYLACTIC VACCIN AND INOCULATI 01/03/2015 TIMOTHY KAN WOLF S 706.1 ACNE 01/03/2015 TIMOTHY MAP PLOTTER, WOLF S 719.46 PAIN- KNEE 01/03/2015 TMIOTHY MAP PLOTTER, WOLF S 706.1 ACNE 01/03/2015 TIMOTHY MAP PLOTTER, WOLF S 719.46 PAIN- KNEE 01/03/2015 TAN DDS, MARIA LUISA 706.1 ACNE 01/03/2015 TAN DDS, MARIA LUISA 719.46 PAIN- KNEE 01/03/2015 MAX DDS, KATHYA Chopra 706.1 ACNE 01/03/2015 MAX DDS, KATHYA Chopra 719.46 PAIN- KNEE 02/09/2015 YU AGUIRRE APRNA S 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 02/09/2015 TAN DDS, MARIA LUISA 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 02/09/2015 MAX DDS, KATHYA Chopra 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 02/23/2015 TAN DDS, MARIA LUISA 786.2 COUGH 02/23/2015 MAX DDS, KATHYA Chopra 786.2 COUGH 07/27/2015 FLO COLEMAN MD Ot 272.4 HYPERLIPIDEMIA NEC/NOS 07/27/2015 FLO COLEMAN MD Ot 300.00 ANXIETY STATE NOS 07/27/2015 FLO COLEMAN MD Ot 311 DEPRESSIVE DISORDER NEC 07/27/2015 FLO COLEMAN MD Ot 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 07/27/2015 FLO COLEMAN MD Ot 414.00 CORON ATHEROSCLER NOS TYPE VESSEL, NATIV 07/27/2015 FLO COLEMAN MD Ot 427.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 NEC 07/27/2015 FLO COLEMAN MD Ot 530.81 ESOPHAGEAL REFLUX 07/27/2015 FLO COLEMAN MD Ot 786.59 CHEST PAIN NEC 07/27/2015 VIRGINIA DOMINGUEZ, FLO Rdz Ot V15.81 HX OF PAST NONCOMPLIANCE 07/27/2015 FLO COLEMAN MD Ot V45.81 AORTOCORONARY BYPASS 08/23/2015 DEEPTI MATHUR MAP PLOTTER Ot V76.12 08/23/2015 CARITO DOMINGUEZ, BOB Pierre Ot V72.84 08/23/2015 WOLF AGUIRRE Ot V76.12 08/23/2015 JERMAINE JIMENES Ot 427.9 08/23/2015 JERMAINE JIMENES Ot 427.9 08/31/2015 JERMAINE JIMENES Ot 427.9 CARDIAC DYSRHYTHMIA NOS 09/27/2015 WOLF AGUIRRE HANDKERCHIEF FOLDER Ot Z12.31 10/26/2015 DEEPTI MATHUR MAP PLOTTER Ot V76.12 10/26/2015 CARITO DOMINGUEZ, BOB Pierre Ot V72.84 10/26/2015 WOLF AGUIRREP Ot V76.12 10/26/2015 WOLF AGUIRREP Ot Z12.31 02/07/2016 FRED DOS SANTOS MD Ot E87.1 HYPO-OSMOLALITY AND HYPONATREMIA 02/07/2016 FRED DOS SANTOS MD Ot F32.9 MAJOR DEPRESSIVE DISORDER, SINGLE EPISOD 02/07/2016 FRED DOS SANTOS MD Ot F41.9 ANXIETY DISORDER, UNSPECIFIED 02/07/2016 FRED DOS SANTOS MD Ot 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 02/07/2016 FRED DOS SANTOS MD Ot I10 ESSENTIAL (PRIMARY) HYPERTENSION 02/07/2016 FRED DOS SANTOS MD Ot I25.5 ISCHEMIC CARDIOMYOPATHY 02/07/2016 FRED DOS SANTOS MD Ot R07.2 PRECORDIAL PAIN 02/07/2016 FRED DOS SANTOS MD Ot R19.7 DIARRHEA, UNSPECIFIED 02/07/2016 FRED DOS SANTOS MD Ot R51 HEADACHE 02/07/2016 FRED DOS SANTOS MD Ot E87.1 02/07/2016 FRED DOS SANTOS MD Ot F32.9 02/07/2016 FRED DOS SANTOS MD Ot F41.9 02/07/2016 FRED DOS SANTOS MD Ot G25.0 02/07/2016 LEVON DOMINGUEZ, FRED A Ot I10 02/07/2016 LEVON DOMINGUEZ, FRED A Ot I25.5 02/07/2016 LEVON DOMINGUEZ, FRED A Ot R07.2 02/07/2016 LEVON DOMINGUEZ, FRED A Ot R19.7 02/07/2016 LEVON DOMINGUEZ, FRED Marissa Ot R51 05/02/2016 KADY MATTHEWS MD Ot D62 ACUTE POSTHEMORRHAGIC ANEMIA 05/02/2016 KADY MATTHEWS MD Ot D64.9 ANEMIA, UNSPECIFIED 05/02/2016 KADY MATTHEWS MD Ot E78.5 HYPERLIPIDEMIA, UNSPECIFIED 05/02/2016 KADY MATTHEWS MD Ot F32.9 MAJOR DEPRESSIVE DISORDER, SINGLE EPISOD 05/02/2016 KADY MATTHEWS MD Ot F41.9 ANXIETY DISORDER, UNSPECIFIED 05/02/2016 KADY MATTHEWS MD Ot I10 ESSENTIAL (PRIMARY) HYPERTENSION 05/02/2016 KADY MATTHEWS MD Ot I25.10 ATHSCL HEART DISEASE OF [place] CORONARY 05/02/2016 KADY MATTHEWS MD Ot I49.3 VENTRICULAR PREMATURE DEPOLARIZATION 05/02/2016 KADY MATTHEWS MD Ot K21.9 GASTRO-ESOPHAGEAL REFLUX DISEASE WITHOUT 05/02/2016 KADY MATTHEWS MD Ot K59.00 CONSTIPATION, UNSPECIFIED 05/02/2016 KADY MATTHEWS MD Ot R10.13 EPIGASTRIC PAIN 05/02/2016 KADY MATTHEWS MD Ot S09.90XA UNSPECIFIED INJURY OF HEAD, INITIAL ENCO 05/02/2016 KADY MATTHEWS MD Ot S72.142A DISPLACED INTERTROCHANTERIC FRACTURE OF 05/02/2016 KADY MATTHEWS MD Ot W19.XXXA UNSPECIFIED FALL, INITIAL ENCOUNTER 05/02/2016 KADY MATTHEWS MD Ot Y92.513 SHOP (COMMERCIAL) PLACE 05/02/2016 KADY MATTHEWS MD Ot Z95.1 PRESENCE OF AORTOCORONARY BYPASS GRAFT 05/02/2016 DEEPTI MATHUR APRN Ot V76.12 OTH SCREEN MAMMO-MALIGN NEOPLASM OF [place] 05/02/2016 BOB ARZATE MD Ot V72.84 EXAM PRE-OPERATIVE NOS 05/02/2016 WOLF AGUIRRE HANDKERCHIEF FOLDER Ot V76.12 OTH SCREEN MAMMO-MALIGN NEOPLASM OF [place] 05/02/2016 HAFSA AGUIRRENDA HANDKERCHIEF FOLDER Ot Z12.31 ENCNTR SCREEN MAMMOGRAM FOR MALIGNANT NE 05/04/2016 KAREENDEEPTI CORONEL A MAP PLOTTER Ot V76.12 OTH SCREEN MAMMO-MALIGN NEOPLASM OF [place] 05/04/2016 CARITO DOMINGUEZ, BOB M Ot V72.84 EXAM PRE-OPERATIVE NOS 05/04/2016 TIMOTHYHAFSA CHANDA HANDKERCHIEF FOLDER Ot V76.12 OTH SCREEN MAMMO-MALIGN NEOPLASM OF [place] 05/04/2016 TIMOTHYHAFSAWOLF HANDKERCHIEF FOLDER Ot Z12.31 ENCNTR SCREEN MAMMOGRAM FOR MALIGNANT NE 05/04/2016 KAREENDEEPTI CORONEL A MAP PLOTTER Ot V76.12 OTH SCREEN MAMMO-MALIGN NEOPLASM OF [place] 05/04/2016 BOB ARZATE MD M Ot V72.84 EXAM PRE-OPERATIVE NOS 05/04/2016 TIMOTHYHAFSAWOLF HANDKERCHIEF FOLDER Ot V76.12 OTH SCREEN MAMMO-MALIGN NEOPLASM OF [place] 05/04/2016 TIMOTHYHAFSAWOLF HANDKERCHIEF FOLDER Ot Z12.31 ENCNTR SCREEN MAMMOGRAM FOR MALIGNANT NE 05/06/2016 MELANIE DOMINGUEZ, [place] E Ot D64.9 ANEMIA, UNSPECIFIED 05/06/2016 MELANIE DOMINGUEZ, [place] E Ot F32.9 MAJOR DEPRESSIVE DISORDER, SINGLE EPISOD 05/06/2016 MELANIE DOMINGUEZ, [place] E Ot 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 05/06/2016 MELANIE DOMINGUEZ, [place] E Ot I10 ESSENTIAL (PRIMARY) HYPERTENSION 05/06/2016 MELANIE DOMINGUEZ, [place] E Ot I25.10 ATHSCL HEART DISEASE OF [place] CORONARY 05/06/2016 MELANIE DOMINGUEZ, [place] E Ot I49.3 VENTRICULAR PREMATURE DEPOLARIZATION 05/06/2016 MELANIE DOMINGUEZ, [place] E Ot K21.9 GASTRO-ESOPHAGEAL REFLUX DISEASE WITHOUT 05/06/2016 MELANIE DOMINGUEZ, [place] E Ot K59.00 CONSTIPATION, UNSPECIFIED 05/06/2016 MELANIE DOMINGUEZ, [place] E Ot R45.1 RESTLESSNESS AND AGITATION 05/06/2016 MELANIE DOMINGUEZ, [place] E Ot S09.90XD UNSPECIFIED INJURY OF HEAD, SUBSEQUENT E 05/06/2016 [place] NAVARRO MD Ot S72.142D DISPL INTERTROCH FX L FEMUR, SUBS FOR CL 05/06/2016 TEJA NAVARRO MDIC E Ot W19.XXXD UNSPECIFIED FALL, SUBSEQUENT ENCOUNTER 05/06/2016 FRANCE NAVARRO MD Ot Y92.513 SH[address] (COMMERCIAL) PLACE 05/06/2016 FRANCE NAVARRO MD Ot Z95.1 PRESENCE OF AORTOCORONARY BYPASS GRAFT 05/12/2016 FRANCE NAVARRO MD Ot D64.9 ANEMIA, UNSPECIFIED 05/12/2016 FRANCE NAVARRO MD Ot F32.9 MAJOR DEPRESSIVE DISORDER, SINGLE EPISOD 05/12/2016 FRANCE NAVARRO MD Ot 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 05/12/2016 FRANCE NAVARRO MD Ot I10 ESSENTIAL (PRIMARY) HYPERTENSION 05/12/2016 FRANCE NAVARRO MD Ot I25.10 ATHSCL HEART DISEASE OF [place] CORONARY 05/12/2016 FRANCE NAVARRO MD Ot I49.3 VENTRICULAR PREMATURE DEPOLARIZATION 05/12/2016 FRANCE NAVARRO MD Ot K21.9 GASTRO-ESOPHAGEAL REFLUX DISEASE WITHOUT 05/12/2016 FRANCE NAVARRO MD E Ot K59.00 CONSTIPATION, UNSPECIFIED 05/12/2016 FRANCE NAVARRO MD Ot N39.0 URINARY TRACT INFECTION, SITE NOT SPECIF 05/12/2016 FRANCE NAVARRO MD E Ot R45.1 RESTLESSNESS AND AGITATION 05/12/2016 FRANCE NAVARRO MD E Ot S09.90XD UNSPECIFIED INJURY OF HEAD, SUBSEQUENT E 05/12/2016 FRANCE NAVARRO MD E Ot S72.142D DISPL INTERTROCH FX L FEMUR, SUBS FOR CL 05/12/2016 FRANCE NAVARRO MD E Ot W19.XXXD UNSPECIFIED FALL, SUBSEQUENT ENCOUNTER 05/12/2016 FRANCE NAVARRO MD Ot Y92.513 SHOP (COMMERCIAL) PLACE 05/12/2016 FRANCE NAVARRO MD Ot Z95.1 PRESENCE OF AORTOCORONARY BYPASS GRAFT 08/10/2016 MEI HILL MD, Ot F32.9 MAJOR DEPRESSIVE DISORDER, SINGLE EPISOD 08/10/2016 MEI HILL MD Ot F41.9 ANXIETY DISORDER, UNSPECIFIED 08/10/2016 MEI HILL MD Ot I10 ESSENTIAL (PRIMARY) HYPERTENSION 08/10/2016 SERGIO DOMINGUEZ, MEI Chopra Ot R10.32 LEFT LOWER QUADRANT PAIN 08/10/2016 SERGIO DOMINGUEZ, MEI Chopra Ot Z79.82 VACUUM DRIER OPERATOR (CURRENT) USE OF ASPIRIN 08/10/2016 MEI HILL MD Ot Z79.899 OTHER FPC (CURRENT) DRUG THERAPY 08/27/2016 DEEPTI MATHUR Marissa MAP PLOTTER Ot V76.12 OTH SCREEN MAMMO-MALIGN NEOPLASM OF [place] 08/27/2016 CARITO DOMINGUEZ, BOB Pierre Ot V72.84 EXAM PRE-OPERATIVE NOS 08/27/2016 TIMOTHYHAFSAWOLF HANDKERCHIEF FOLDER Ot V76.12 OTH SCREEN MAMMO-MALIGN NEOPLASM OF [place] 08/27/2016 TIMOTHY WOLF HANDKERCHIEF FOLDER Ot Z12.31 ENCNTR SCREEN MAMMOGRAM FOR MALIGNANT NE 03/11/2017 VAN GILLETTE APRN Ot F41.9 ANXIETY DISORDER, UNSPECIFIED 03/11/2017 VAN GILLETTE APRN Ot I10 ESSENTIAL (PRIMARY) HYPERTENSION 03/11/2017 VAN GILLETTE APRN Ot I25.10 ATHSCL HEART DISEASE OF [place] CORONARY 03/11/2017 VAN GILLETTE APRN Ot M25.551 PAIN IN RIGHT HIP 03/11/2017 VAN GILLETTE APRN Ot M25.552 PAIN IN LEFT HIP 03/11/2017 VAN GILLETTE APRN Ot Z79.01 VACUUM DRIER OPERATOR (CURRENT) USE OF ANTICOAGULANT 03/11/2017 VAN GILLETTE APRN Ot Z79.82 FPC (CURRENT) USE OF ASPIRIN 03/11/2017 VAN GILLETTE APRN Ot Z79.899 OTHER VACUUM DRIER OPERATOR (CURRENT) DRUG THERAPY 03/11/2017 VAN GILLETTE APRN Ot Z91.14 PATIENT'S OTHER NONCOMPLIANCE WITH MEDIC 03/11/2017 VAN GILLETTE APRN Ot Z95.1 PRESENCE OF AORTOCORONARY BYPASS GRAFT 03/11/2017 VAN GILLETTE APRN Ot Z96.641 PRESENCE OF RIGHT ARTIFICIAL HIP JOINT 03/11/2017 VAN GILLETTE APRN Ot F41.9 ANXIETY DISORDER, UNSPECIFIED 03/11/2017 VAN GILLETTE APRN Ot I10 ESSENTIAL (PRIMARY) HYPERTENSION 03/11/2017 VAN GILLETTE APRN Ot I25.10 ATHSCL HEART DISEASE OF [place] CORONARY 03/11/2017 VAN GILLETTE APRN Ot M25.551 PAIN IN RIGHT HIP 03/11/2017 VAN GILLETTE APRN Ot M25.552 PAIN IN LEFT HIP 03/11/2017 VAN GILLETTE APRN Ot Z79.01 FPC (CURRENT) USE OF ANTICOAGULANT 03/11/2017 VAN GILLETTE APRN Ot Z79.82 VACUUM DRIER OPERATOR (CURRENT) USE OF ASPIRIN 03/11/2017 VAN GILLETTE APRN Ot Z79.899 OTHER FPC (CURRENT) DRUG THERAPY 03/11/2017 VAN GILLETTE APRN Ot Z91.14 PATIENT'S OTHER NONCOMPLIANCE WITH MEDIC 03/11/2017 VAN GILLETTE APRN Ot Z95.1 PRESENCE OF AORTOCORONARY BYPASS GRAFT 03/11/2017 VAN GILLETTE APRN Ot Z96.641 PRESENCE OF RIGHT ARTIFICIAL HIP JOINT Procedures Code [place] [address] ROUTINE VENIPUNCTURE 11/20/2012 56933 UA LONG DIP 11/20 21379 CMP 11/21/2012 [id number] GFR CALC (RESULT ONLY) 11/21/2012 36025 CBC 11/21/2012 34999 XRAY ABDOMEN, 1 VIEW (KUB) 11/30/2012 79388 ROUTINE VENIPUNCTURE 01/13/2013 26802 LIPID PANEL 01/13 61264 LACERATION REPAIR (SPECIFY LOCATION) 02/03/2013 67646 MAMMOGRAM, SCREENING 04/03/2013 12914 UA W/ CULTURE IF INDICATED 04/03/2013 G0008 FLU ADMINISTRATION (MEDICARE ONLY) 01/20/2014 73651 ROUTINE VENIPUNCTURE 02/05/2014 65847 CBC 02/05/2014 [id number] GFR CALC (RESULT ONLY) 02/05/2014 35616 CMP 02/05/2014 61040 LIPID PANEL 02/05 72916 TSH 02/05/2014 34795 KUB 02/23/2014 37063 MAMMOGRAM, SCREENING 04/08/2014 13682 OXIMETRY 2013 87138 ROUTINE VENIPUNCTURE 02/14/2015 03163 CBC 02/14/2015 [id number] GFR CALC (RESULT ONLY) 02/14/2015 50086 CMP 02/14/2015 88774 LIPID PANEL 02/14 [id number] 04/28/2016 Results Test Result Range Complete blood count (CBC) with automated white blood cell (WBC) differential - 08/10/16 04:00 Blood leukocytes automated count (number/volume) 7.5 10*3/ uL 4.3-11.0 Blood erythrocytes automated count (number/volume) 3.87 10*6 /uL 4.35-5.85 Venous blood hemoglobin measurement (mass/volume) 12.2 g/dL 11.5-16.0 Blood hematocrit (volume fraction) 36 % 35-52 Automated erythrocyte mean corpuscular volume 92 [foz_us] 80-99 Automated erythrocyte mean corpuscular hemoglobin (mass per erythrocyte) 32 pg 25-34 Automated erythrocyte mean corpuscular hemoglobin concentration measurement ( mass/volume) 34 g/dL 32-36 Automated erythrocyte distribution width ratio 14.2 % 10.0-14.5 Automated blood platelet count (count/volume) 247 10*3/uL 130-400 Automated blood platelet mean volume measurement 10.5 [foz_ us] 7.4-10.4 Automated blood neutrophils/100 leukocytes 49 % 42-75 Automated blood lymphocytes/100 leukocytes 37 % 12-44 Blood monocytes/100 leukocytes 12 % 0-12 Automated blood eosinophils/100 leukocytes 2 % 0-10 Automated blood basophils/100 leukocytes 1 % 0-10 Blood neutrophils automated count (number/volume) 3.7 10*3 1.8-7.8 Blood lymphocytes automated count (number/volume) 2.7 10*3 1.0-4.0 Blood monocytes automated count (number/volume) 0.9 10*3 0.0-1.0 Automated eosinophil count 0.1 10*3/uL 0.0-0.3 Automated blood basophil count (count/volume) 0.1 10*3/uL 0.0-0.1 Comprehensive metabolic panel - 08/10/16 04:00 Serum or plasma sodium measurement (moles/volume) 136 mmol/ L 135-145 Serum or plasma potassium measurement (moles/volume) 3.3 mmol/L 3.6-5.0 Serum or plasma chloride measurement (moles/volume) 104 mmol /L 98-107 Carbon dioxide 18 mmol/L 21-32 Serum or plasma anion gap determination (moles/volume) 14 mmol/L 5-14 Serum or plasma urea nitrogen measurement (mass/volume) 11 mg/dL 7-18 Serum or plasma creatinine measurement (mass/volume) 0.77 mg /dL 0.60-1.30 Serum or plasma urea nitrogen/creatinine mass ratio 14 NRG Serum or plasma creatinine measurement with calculation of estimated glomerular filtration rate > NRG Serum or plasma glucose measurement (mass/volume) 97 mg/dL 70-105 Serum or plasma calcium measurement (mass/volume) 9.3 mg/dL 8.5-10.1 Serum or plasma total bilirubin measurement (mass/volume) 0.3 mg/dL 0.1-1.0 Serum or plasma alkaline phosphatase measurement (enzymatic activity/volume) 83 U/L 40-136 Serum or plasma aspartate aminotransferase measurement (enzymatic activity/ volume) 20 U/L 5-34 Serum or plasma alanine aminotransferase measurement (enzymatic activity/volume ) 13 U/L 0-55 Serum or plasma protein measurement (mass/volume) 6.9 g/dL 6.4-8.2 Serum or plasma albumin measurement (mass/volume) 4.3 g/dL 3.2-4.5 Magnesium - 08/10/16 04:00 Magnesium 2.4 mg/dL 1.8-2.4 Serum or plasma troponin i.cardiac measurement (mass/volume) - 08/10/16 04:00 Serum or plasma troponin i.cardiac measurement (mass/volume) < ng/mL <0.30 Serum or plasma amylase measurement (enzymatic activity/volume) - 08/10/16 04: 00 Serum or plasma amylase measurement (enzymatic activity/volume) 67 U/L 25-125 Lipase - 08/10/16 04:00 Lipase 56 U/L 8-78 Complete urinalysis with reflex to culture - 08/10/16 06:05 Urine color determination YELLOW NRG Urine clarity determination CLEAR NRG Urine pH measurement by test strip 8 5- 9 Specific gravity of urine by test strip 1.010 1.016-1.022 Urine protein assay by test strip, semi-quantitative NEGATIVE NEGATIVE Urine glucose detection by automated test strip NEGATIVE NEGATIVE Erythrocytes detection in urine sediment by light microscopy NEGATIVE NEGATIVE Urine ketones detection by automated test strip NEGATIVE NEGATIVE Urine nitrite detection by test strip NEGATIVE NEGATIVE Urine total bilirubin detection by test strip NEGATIVE NEGATIVE Urine urobilinogen measurement by automated test strip (mass/volume) NORMAL NORMAL Urine leukocyte esterase detection by dipstick 2+ NEGATIVE Automated urine sediment erythrocyte count by microscopy (number/high power field) NONE NRG Automated urine sediment leukocyte count by microscopy (number/high power field ) RARE NRG Bacteria detection in urine sediment by light microscopy NEGATIVE NRG Squamous epithelial cells detection in urine sediment by light microscopy 2-5 NRG Crystals detection in urine sediment by light microscopy NONE NRG Casts detection in urine sediment by light microscopy NONE NRG Mucus detection in urine sediment by light microscopy SMALL NRG Complete urinalysis with reflex to culture NO NRG Serum or plasma troponin i.cardiac measurement (mass/volume) - 08/10/16 07:02 Serum or plasma troponin i.cardiac measurement (mass/volume) < ng/mL <0.30 Complete blood count (CBC) with automated white blood cell (WBC) differential - 03/08/17 16:23 Blood leukocytes automated count (number/volume) 6.6 10*3/ uL 4.3-11.0 Blood erythrocytes automated count (number/volume) 4.92 10*6 /uL 4.35-5.85 Venous blood hemoglobin measurement (mass/volume) 15.2 g/dL 11.5-16.0 Blood hematocrit (volume fraction) 46 % 35-52 Automated erythrocyte mean corpuscular volume 93 [foz_us] 80-99 Automated erythrocyte mean corpuscular hemoglobin (mass per erythrocyte) 31 pg 25-34 Automated erythrocyte mean corpuscular hemoglobin concentration measurement ( mass/volume) 33 g/dL 32-36 Automated erythrocyte distribution width ratio 13.6 % 10.0-14.5 Automated blood platelet count (count/volume) 264 10*3/uL 130-400 Automated blood platelet mean volume measurement 10.9 [foz_ us] 7.4-10.4 Automated blood neutrophils/100 leukocytes 66 % 42-75 Automated blood lymphocytes/100 leukocytes 25 % 12-44 Blood monocytes/100 leukocytes 9 % 0-12 Automated blood eosinophils/100 leukocytes 0 % 0-10 Automated blood basophils/100 leukocytes 1 % 0-10 Blood neutrophils automated count (number/volume) 4.3 10*3 1.8-7.8 Blood lymphocytes automated count (number/volume) 1.6 10*3 1.0-4.0 Blood monocytes automated count (number/volume) 0.6 10*3 0.0-1.0 Automated eosinophil count 0.0 10*3/uL 0.0-0.3 Automated blood basophil count (count/volume) 0.0 10*3/uL 0.0-0.1 Comprehensive metabolic panel - 03/08/17 16:23 Serum or plasma sodium measurement (moles/volume) 141 mmol/ L 135-145 Serum or plasma potassium measurement (moles/volume) 4.1 mmol/L 3.6-5.0 Serum or plasma chloride measurement (moles/volume) 104 mmol /L 98-107 Carbon dioxide 20 mmol/L 21-32 Serum or plasma anion gap determination (moles/volume) 17 mmol/L 5-14 Serum or plasma urea nitrogen measurement (mass/volume) 22 mg/dL 7-18 Serum or plasma creatinine measurement (mass/volume) 0.85 mg /dL 0.60-1.30 Serum or plasma urea nitrogen/creatinine mass ratio 26 NRG Serum or plasma creatinine measurement with calculation of estimated glomerular filtration rate > NRG Serum or plasma glucose measurement (mass/volume) 74 mg/dL 70-105 Serum or plasma calcium measurement (mass/volume) 9.7 mg/dL 8.5-10.1 Serum or plasma total bilirubin measurement (mass/volume) 0.9 mg/dL 0.1-1.0 Serum or plasma alkaline phosphatase measurement (enzymatic activity/volume) 64 U/L 40-136 Serum or plasma aspartate aminotransferase measurement (enzymatic activity/ volume) 25 U/L 5-34 Serum or plasma alanine aminotransferase measurement (enzymatic activity/volume ) 17 U/L 0-55 Serum or plasma protein measurement (mass/volume) 7.3 g/dL 6.4-8.2 Serum or plasma albumin measurement (mass/volume) 4.4 g/dL 3.2-4.5 THYROID STIMULATING HORMONE - 03/08/17 16:23 THYROID STIMULATING HORMONE 0.64 u[iU]/mL 0.35-4.94 Encounters ACCT No. Visit Date/Time Discharge Status Pt. Type Provider Facility Loc./Unit Complaint [id number] 03/25/2015 15:23:00 03/25/2015 23: 59:59 CLS Outpatient KATHYA SANTANA DDS [id number] 03/03/2015 16:04:00 03/03/2015 23: 59:59 CLS Outpatient MARIA LUISA TAN DDS [id number] 02/14/2015 11:40:00 02/14/2015 23: 59:59 CLS Outpatient WOLF AGUIRRE APRN S [id number] 01/03/2015 14:48:00 01/03/2015 23: 59:59 CLS Outpatient WOLF AGUIRRE APRN S [id number] 11/28/2014 08:23:00 11/28/2014 23: 59:59 CLS Outpatient KADY MATTHEWS MD [id number] 11/08/2014 00:00:00 11/08/2014 23: 59:59 CLS Outpatient WOLF AGUIRRE APRN S [id number] 10/18/2014 14:56:00 10/18/2014 23: 59:59 CLS Outpatient WOLF AGUIRRE APRN S [id number] 10/13/2014 17:48:00 10/13/2014 23: 59:59 CLS Outpatient JOHANNY GAINESNHUSAM Isabel [id number] 07/29/2014 00:00:00 07/29/2014 23: 59:59 CLS Outpatient MARIA LUISA TAN DDS [id number] 05/17/2014 15:12:00 05/17/2014 23: 59:59 CLS Outpatient MELISSA DONIS DDS [id number] 04/08/2014 00:00:00 04/08/2014 23: 59:59 CLS Outpatient WOLF AGUIRRE APRN S [id number] 02/23/2014 14:07:00 02/23/2014 23: 59:59 CLS Outpatient WOLF AGUIRRE APRN S [id number] 02/23/2014 14:07:00 02/23/2014 23: 59:59 CLS Outpatient WOLF AGUIRRE APRN S [id number] 02/05/2014 11:39:00 02/05/2014 23: 59:59 CLS Outpatient WOLF AGUIRRE APRN S [id number] 01/25/2014 14:13:00 01/25/2014 23: 59:59 CLS Outpatient HAFSA AGUIRRE APRNNDA S [id number] 01/20/2014 13:07:00 01/20/2014 23: 59:59 CLS Outpatient MORAIMA NICOLE DO [id number] 10/07/2013 15:08:00 10/07/2013 23: 59:59 CLS Outpatient JUAREZ GREEN DDS [id number] 09/07/2013 09:10:00 09/07/2013 23: 59:59 CLS Outpatient JUAREZ GREEN DDS [id number] 02/10/2013 17:22:00 02/10/2013 23: 59:59 CLS Outpatient NICOLE MORAIMA LOCKETT [id number] 02/03/2013 17:51:00 02/03/2013 23: 59:59 CLS Outpatient [id number] 01/13/2013 10:37:00 01/13/2013 23: 59:59 CLS Outpatient WOLF AGUIRRE APRN [id number] 01/03/2013 14:22:00 01/03/2013 23: 59:59 CLS Outpatient HUSAM ORLANDO APRN [id number] 11/21/2012 13:05:00 11/21/2012 23: 59:59 CLS Outpatient KAELA CALHOUN DDS [id number] 11/11/2012 16:00:00 11/11/2012 23: 59:59 CLS Outpatient [id number] 09/24/2012 15:10:00 09/24/2012 23:59 :59 CLS Outpatient [id number] 06/23/2013 11:06:00 Document Registration [id number] 04/03/2013 15:23:00 Document Registration [id number] 04/03/2013 15:23:00 Document Registration [id number] 03/31/2013 15:12:00 Document Registration
--- OUTSIDE RECORDS SUMMARY | 2017-04-11 22:17 | XMS REPORT ---
Author Author WOLF AGUIRRE Organization [employer] Address Unknown Phone Unavailable Care Team Providers Care Animal Rehabilitator Name Role Phone WOLF AGUIRRE CP Unavailable Allergies No Known Allergies Problems Problem Type Condition ICD-9 Code Onset Dates Condition Status Problem Unspecified cardiac dysrhythmia 427.9 Active Medications No Known Medications Results No Known Results Summary Purpose [employer] Submission
--- OUTSIDE RECORDS SUMMARY | 2017-04-11 22:17 | XMS REPORT ---
Author Author CESAR CANNON [facility] [employer] Address Unknown Phone Unavailable Care Team Providers Care Hand I Cutter Name Role Phone CESAR CANNON CP Unavailable Allergies, Adverse Reactions, Alerts Substance Reaction Event Type Clindamycin HCl Info Not Available Drug Allergy Problems Problem Type Condition Code Onset Dates Condition Status Problem Generalized anxiety disorder F41.1 Active Problem Hypertension 401.9 Active Problem CAD (coronary artery disease) I25.10 Active Problem Unspecified cardiac dysrhythmia 427.9 Active Assessment Post concussion syndrome F07.81 Active Medications Medication Code System Code Instructions Start Date End Date Status Dosage Triamcinolone Acetonide [facility] [address]-27 0.5 % Externally Twice a day Sep 10, 2015 1 application to affected area Klonopin [facility] [address]-34 0.5 MG Orally Once a day Jan 24, 2015 1 tablet by Oral route 1 time per day at bedtime Aspirin [facility] [address]-33 81 MG Orally [facility] Jul 1 tablet Carafate [facility] [address]-27 1 GM Orally 4 times a day [facility] Jul 27, 2015 1 tablet on an empty stomach Primidone [facility] 06106800684 50 MG TAKE 1/2 TABLET BY MOUTH AT BEDTIME FOR TREMORS Lisinopril [facility] 70835933218 5 MG TAKE 1 TABLET BY MOUTH ONCE DAILY Sucralfate [facility] 84122609293 1 GM DISSOLVE ONE TABLET IN 10 MLS OF WATER AND DRINK BEFORE MEALS THREE TIMES DAILY AND BEFORE BEDTIME Sertraline HCl [facility] [address]-33 100 MG Orally Once a day 1 tablet Procedures Procedure Coding System Code Date Office Visit, Est Pt., Level 4 CPT-4 25289 Nov 30, 2015 [facility] VISIT ESTABLISHED PATIENT CPT-4 G0467 Nov 30, 2015 Vital Signs Date/Time: Nov 30, 2015 Temperature 97.4 F Weight 131.7 lbs Height 64 in BMI 22.60 Index Cardiac Monitoring Heart Rate 68 bpm Results No Known Results Summary Purpose [employer] Submission
--- OUTSIDE RECORDS SUMMARY | 2017-04-11 22:17 | XMS REPORT ---
Author Author WOLF AGUIRRE [facility] e[employer] Address Unknown Phone Unavailable Care Team Providers Care Biomathematician Name Role Phone WOLF AGUIRRE CP Unavailable Allergies, Adverse Reactions, Alerts Substance Reaction Event Type Morphine Sulfate Info Not Available Drug Allergy Clindamycin HCl Info Not Available Drug Allergy Problems Problem Type Condition Code Onset Dates Condition Status Assessment Acute vaginitis N76.0 Active Assessment Diarrhea, unspecified type R19.7 Active Problem CAD (coronary artery disease) I25.10 Active Problem Encounter for dental examination Z01.20 Active Problem Hypertension I10 Active Problem Constipation, unspecified constipation type K59.00 Active Assessment Urinary tract infection, site not specified N39.0 Active Problem Generalized anxiety disorder F41.1 Active Problem Sundowning F05 Active Medications Medication Code System Code Instructions Start Date End Date Status Dosage Aspirin [facility] [address]-48 81 MG Orally Once a day from the hospital Jul 1 tablet Ibuprofen [facility] [address]-42 200 MG Orally Q6H as needed not defined Lisinopril [facility] 21857823120 5 MG TAKE 1 TABLET BY MOUTH ONCE DAILY Sertraline HCl [facility] 99232559322 100 TAKE ONE TABLET BY MOUTH EVERY DAY Esomeprazole Magnesium [facility] [address]-44 40 MG Orally Once a day 1 capsule Apixaban [facility] [address]-35 5 MG Orally not defined Ondansetron HCl [facility] [address]-29 4 MG Orally Q8H 1 tablet Cranberry Extract [facility] 22212-31251 250 MG Orally not defined Acetaminophen Extra Strength [facility] [address]-64 500 MG Orally every 4 hrs 1 tablet as needed Cipro [facility] [address]-91 500 MG Orally Twice a day June 13, 2016 June 20, 2016 1 tablet Flaxseed Oil [facility] [address]-64 1000 MG Orally not defined Metoprolol Succinate ER [facility] [address]-58 25 MG Orally Once a day 1 tablet Diflucan [facility] [address]-82 150 MG Orally Once a day and may repeat when done with the Cipro June 13, 2016 1 tablet Primidone [facility] [address]-87 50 mg Orally Once a day at bedtime April 05, 2016 as directed Multivitamin Adult [facility] 22634-19323 - Orally not defined Procedures Procedure Coding System Code Date [facility] VISIT ESTABLISHED PATIENT CPT-4 G0467 June 13, 2016 Office Visit, Est Pt., Level 3 CPT-4 30544 June 13, 2016 URINALYSIS, AUTO, W/O SCOPE CPT-4 94836 June 13, 2016 Vital Signs Date/Time: June 13, 2016 Blood Pressure Systolic 110 mmHg Cardiac Monitoring Heart Rate 70 bpm Height 64 in Blood Pressure Diastolic 70 mmHg Results No Known Results Summary Purpose [employer]Works Submission
--- OUTSIDE RECORDS SUMMARY | 2017-04-11 22:17 | XMS REPORT ---
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 366073354 Problem Encounter for dental examination Z01.20 Active 978172902 Problem Generalized anxiety disorder F41.1 Active 80125746 Problem Dysthymic disorder F34.1 Active 96980041 Problem Hypertension I10 Active 53458904 ALLERGIES Substance Reaction Event Type Date Status Morphine Sulfate Unknown Drug Allergy Oct, Active Clindamycin HCl Unknown Drug Allergy Oct, Active SOCIAL HISTORY No smoking Hx information available PLAN OF CARE VITAL SIGNS Height 64 in 2016-10-17 Weight 115.7 lbs 2016-10-17 Heart Rate 68 bpm 2016-10-17 Respiratory Rate 12 2016-10-17 BMI 19.86 kg/m2 2016-10-17 Blood pressure systolic 128 mmHg 2016-10-17 Blood pressure diastolic 52 mmHg 2016-10-17 MEDICATIONS Medication Instructions Dosage Frequency Start Date End Date Duration Status Multivitamin Adult - Active Acetaminophen Extra Strength 500 MG Orally every 4 hrs 1 tablet as needed 4h Active Sucralfate 1 GM DISSOLVE ONE TABLET IN 10 MLS OF WATER AND DRINK BEFORE MEALS THREE TIMES DAILY AND BEFORE BEDTIME 30 Active Primidone 50 MG TAKE ONE TABLET BY MOUTH AT BEDTIME Jul, 30 Active Ibuprofen 200 MG Orally Q6H as needed Active Aspirin 81 MG Orally Once a day from the hospital 1 tablet Jul, Active Lisinopril 5 MG TAKE 1 TABLET BY MOUTH ONCE DAILY 30 Active Sertraline HCl 50 mg Orally Once a day 1 tablet 24h Active RESULTS No Results PROCEDURES Procedure Date Ordered Related Diagnosis Body Site [facility] VISIT ESTABLISHED PATIENT Oct 17, 2016 Office Visit, Est Pt., Level 3 Oct 17, 2016 IMMUNIZATIONS No Known Immunizations
--- OUTSIDE RECORDS SUMMARY | 2017-04-11 22:17 | XMS REPORT ---
Author Author WOLF AGUIRRE [facility] Address [address] [place] [address] Care Team Providers Care Trimmer Machine Name Role Phone WOLF AGUIRRE Unavailable PROBLEMS Type Condition ICD9-CM Code [id number] Code Onset Dates Condition Status SNOMED Code Problem Hypertension I10 Active 77147904 Problem Encounter for dental examination Z01.20 Active 697302132 Problem Constipation, unspecified constipation type K59.00 Active 53539023 Problem Generalized anxiety disorder F41.1 Active 73832801 Problem Sundowning F05 Active 482927175 ALLERGIES Unknown Allergies SOCIAL HISTORY No smoking Hx information available PLAN OF CARE VITAL SIGNS MEDICATIONS Unknown Medications RESULTS No Results PROCEDURES No Known procedures IMMUNIZATIONS No Known Immunizations
--- OUTSIDE RECORDS SUMMARY | 2017-04-11 22:17 | XMS REPORT ---
Author Author MARIA LUISA TAN [facility] eClinicalWorks Address Unknown Phone Unavailable Care Team Providers Care Trampoline Team Coach Name Role Phone MARIA LUISA TAN CP Unavailable Allergies, Adverse Reactions, Alerts Substance Reaction Event Type Clindamycin HCl Info Not Available Drug Allergy Problems Problem Type Condition Code Onset Dates Condition Status Problem Generalized anxiety disorder F41.1 Active Problem Hypertension 401.9 Active Problem CAD (coronary artery disease) I25.10 Active Problem Unspecified cardiac dysrhythmia 427.9 Active Assessment Dental caries K02.9 Active Medications Medication Code System Code Instructions Start Date End Date Status Dosage Triamcinolone Acetonide [facility] [address]-99 0.5 % Externally Twice a day Sep 10, 2015 1 application to affected area Lisinopril [facility] 15355591829 5 MG TAKE 1 TABLET BY MOUTH ONCE DAILY Klonopin [facility] [address]-30 0.5 MG Orally Once a day Jan 24, 2015 1 tablet by Oral route 1 time per day at bedtime Sertraline HCl [facility] [address]-07 100 MG Orally Once a day [address] [facility] 89234414105 50 MG TAKE 1/2 TABLET BY MOUTH AT BEDTIME FOR TREMORS Sucralfate [facility] 83026864468 1 GM DISSOLVE ONE TABLET IN 10 MLS OF WATER AND DRINK BEFORE MEALS THREE TIMES DAILY AND BEFORE BEDTIME Carafate [facility] [address]-48 1 GM Orally Twice a day 1 tablet on an empty stomach Nexium [facility] 73770238952 40 TAKE ONE CAPSULE BY MOUTH DAILY Aspirin [facility] [address]-96 81 MG Orally Once a day from the hospital Jul [address] [facility] [address]-89 500 MG Orally Every 6 hours Oct 24, 2015 Nov 03, [address] [facility] [address]-41 1 GM Orally 4 times a day from the [facility] Jul 27, 2015 1 tablet on an empty stomach Procedures Procedure Coding System Code Date EXTRAC ERUPTED TOOTH/EXPOSED ROOT CPT-4 D7140 Oct 24, 2015 Vital Signs Date/Time: Oct 31, 2015 Blood Pressure Diastolic 66 mmHg Blood Pressure Systolic 129 mmHg Results No Known Results Summary Purpose eClinicalWorks Submission
--- OUTSIDE RECORDS SUMMARY | 2017-04-11 22:17 | XMS REPORT ---
Author Author MELISSA DONIS eClinicalWorks Address Unknown Phone Unavailable Care Team Providers Care Denial Management Representative Name Role Phone MELISSA DONIS CP Unavailable Allergies No Known Allergies Problems Problem Type Condition ICD-9 Code Onset Dates Condition Status Assessment Dental examination V72.2 Active Problem Unspecified cardiac dysrhythmia 427.9 Active Medications No Known Medications Procedures Procedure Coding System Code Date Billing Notes on claim CPT-4 EC109 May 04, 2015 Results No Known Results Summary Purpose eClinicalWorks Submission
--- OUTSIDE RECORDS SUMMARY | 2017-04-11 22:18 | XMS REPORT ---
Author Author LYNDON WRIGHT [facility] eClinicalWorks Address Unknown Phone Unavailable Care Team Providers Care Ribbon Hand Name Role Phone LYNDON WRIGHT Unavailable Allergies No Known Allergies Problems Problem Type Condition Code Onset Dates Condition Status Problem Generalized anxiety disorder F41.1 Active Problem Hypertension 401.9 Active Problem CAD (coronary artery disease) I25.10 Active Problem Unspecified cardiac dysrhythmia 427.9 Active Assessment Generalized anxiety disorder F41.1 Active Medications No Known Medications Procedures Procedure Coding System Code Date Psychotherapy, patient &/family, 30 minutes, established patient CPT-4 73698 Dec 05, 2015 [facility] VISIT MENTAL HEALTH ESTAB PT CPT-4 G0470 Dec 05, 2015 Results No Known Results Summary Purpose eClinicalWorks Submission
--- OUTSIDE RECORDS SUMMARY | 2017-04-11 22:18 | XMS REPORT ---
Author Author WOLF AGUIRRE Organization eClinicalWorks Address Unknown Phone Unavailable Care Team Providers Care Forest Products Gatherer Name Role Phone WOLF AGUIRRE CP Unavailable Allergies No Known Allergies Problems Problem Type Condition Code Onset Dates Condition Status Problem CAD (coronary artery disease) I25.10 Active Problem Encounter for dental examination Z01.20 Active Problem Hypertension I10 Active Problem Constipation, unspecified constipation type K59.00 Active Problem Generalized anxiety disorder F41.1 Active Problem Sundowning F05 Active Medications No Known Medications Results No Known Results Summary Purpose eClinicalWorks Submission
--- OUTSIDE RECORDS SUMMARY | 2017-04-11 22:18 | XMS REPORT ---
Author Author WOLF AGUIRRE Organization eClinicalWorks Address Unknown Phone Unavailable Care Team Providers Care Picture Engraver Name Role Phone WOLF AGUIRRE CP Unavailable Allergies No Known Allergies Problems Problem Type Condition Code Onset Dates Condition Status Problem Generalized anxiety disorder F41.1 Active Problem Hypertension 401.9 Active Problem CAD (coronary artery disease) I25.10 Active Problem Unspecified cardiac dysrhythmia 427.9 Active Medications Medication Code System Code Instructions Start Date End Date Status Dosage [facility] [address]-78 0.5 MG Orally Once a day Jan 24, 2015 1 tablet by Oral route 1 time per day at bedtime Results No Known Results Summary Purpose eClinicalWorks Submission
--- OUTSIDE RECORDS SUMMARY | 2017-04-11 22:18 | XMS REPORT ---
Author Author WOLF AGUIRRE Organization eClinicalWorks Address Unknown Phone Unavailable Care Team Providers Care Boat Garnisher Name Role Phone WOLF AGUIRRE CP Unavailable Allergies No Known Allergies Problems Problem Type Condition ICD-9 Code Onset Dates Condition Status Problem Unspecified cardiac dysrhythmia 427.9 Active Problem Hypertension 401.9 Active Medications No Known Medications Results No Known Results Summary Purpose eClinicalWorks Submission
--- OUTSIDE RECORDS SUMMARY | 2017-04-11 22:18 | XMS REPORT ---
Author Author WOLF AGUIRRE [facility] Address [address] [place] [address] Care Team Providers Care Lock Setter Name Role Phone WOLF AGUIRRE Unavailable PROBLEMS Type Condition ICD9-CM Code [id number] Code Onset Dates Condition Status SNOMED Code Problem Hypertension I10 Active 45248618 Problem Encounter for dental examination Z01.20 Active 951738759 Problem Constipation, unspecified constipation type K59.00 Active 12480295 Problem Generalized anxiety disorder F41.1 Active 09765962 Problem Sundowning F05 Active 062412238 ALLERGIES Unknown Allergies SOCIAL HISTORY No smoking Hx information available PLAN OF CARE VITAL SIGNS MEDICATIONS Unknown Medications RESULTS No Results PROCEDURES No Known procedures IMMUNIZATIONS No Known Immunizations
--- OUTSIDE RECORDS SUMMARY | 2017-04-11 22:18 | XMS REPORT ---
Author Author WOLF AGUIRRE [facility] eClinicalWorks Address Unknown Phone Unavailable Care Team Providers Care Human Resources Executive Assistant Name Role Phone WOLF AGUIRRE CP Unavailable Allergies, Adverse Reactions, Alerts Substance Reaction Event Type Clindamycin HCl Info Not Available Drug Allergy Problems Problem Type Condition Code Onset Dates Condition Status Problem Generalized anxiety disorder F41.1 Active Problem Hypertension 401.9 Active Problem CAD (coronary artery disease) I25.10 Active Problem Unspecified cardiac dysrhythmia 427.9 Active Assessment Generalized anxiety disorder F41.1 Active Medications Medication Code System Code Instructions Start Date End Date Status Dosage Lisinopril [facility] 14746550843 5 MG TAKE 1 TABLET BY MOUTH ONCE DAILY Primidone [facility] 57066322459 50 MG TAKE 1/2 TABLET BY MOUTH AT BEDTIME FOR TREMORS Aspirin [facility] [address]-10 81 MG Orally Once a day from [facility] Jul 1 tablet Carafate [facility] [address]-52 1 GM Orally 4 times a day from [facility] Jul 27, 2015 1 tablet on an empty stomach Sertraline HCl [facility] [address]-05 100 MG Orally Once a day 1 tablet Klonopin [facility] [address]-52 0.5 MG Orally Once a day Jan 24, 2015 1 tablet by Oral route 1 time per day at bedtime Sucralfate [facility] 38166232383 1 GM DISSOLVE ONE TABLET IN 10 MLS OF WATER AND DRINK BEFORE MEALS THREE TIMES DAILY AND BEFORE BEDTIME Triamcinolone Acetonide [facility] [address]-31 0.5 % Externally Twice a day Sep 10, 2015 1 application to affected area Procedures Procedure Coding System Code Date Office Visit, Est Pt., Level 3 CPT-4 75290 Dec 05, 2015 [facility] VISIT ESTABLISHED PATIENT CPT-4 G0467 Dec 05, 2015 Vital Signs Date/Time: Dec 05, 2015 Temperature 98.09 F Weight 130.0 lbs Height 64 in BMI 22.31 Index Blood Pressure Diastolic 78 mmHg Blood Pressure Systolic 140 mmHg Cardiac Monitoring Heart Rate 72 bpm Results No Known Results Summary Purpose eClinicalWorks Submission
--- OUTSIDE RECORDS SUMMARY | 2017-04-11 22:18 | XMS REPORT ---
Author Author WOLF AGUIRRE Organization eClinicalWorks Address Unknown Phone Unavailable Care Team Providers Care Software Implementation Project Manager Name Role Phone WOLF AGUIRRE CP Unavailable Allergies No Known Allergies Problems Problem Type Condition ICD-9 Code Onset Dates Condition Status Problem Unspecified cardiac dysrhythmia 427.9 Active Medications Medication Code System Code Instructions Start Date End Date Status Dosage Simvastatin [facility] [id number] 40 TAKE ONE TABLET BY MOUTH EVERY EVENING Results No Known Results Summary Purpose eClinicalWorks Submission
--- OUTSIDE RECORDS SUMMARY | 2017-04-11 22:18 | XMS REPORT ---
Author Author GIOVANI MENENDEZ Organization eClinicalWorks Address Unknown Phone Unavailable Care Team Providers Care Preparing Box Tender Name Role Phone GIOVANI MENENDEZ CP Unavailable Allergies No Known Allergies Problems Problem Type Condition ICD-9 Code Onset Dates Condition Status Problem Hypertension 401.9 Active Problem Unspecified cardiac dysrhythmia 427.9 Active Problem Generalized anxiety disorder 300.02 Active Assessment Generalized anxiety disorder 300.02 Active Medications No Known Medications Procedures Procedure Coding System Code Date Psych diagnostic evaluation, established patient CPT-4 19314 Aug 18, 2015 [facility] VISIT MENTAL HEALTH ESTAB PT CPT-4 G0470 Aug 18, 2015 Results No Known Results Summary Purpose eClinicalWorks Submission
--- OUTSIDE RECORDS SUMMARY | 2017-04-11 22:18 | XMS REPORT ---
Author Author MELISSA DONIS eClinicalWorks Address Unknown Phone Unavailable Care Team Providers Care Clay Products Glazer Name Role Phone MELISSA DONIS CP Unavailable Allergies No Known Allergies Problems Problem Type Condition ICD-9 Code Onset Dates Condition Status Assessment Dental examination V72.2 Active Problem Unspecified cardiac dysrhythmia 427.9 Active Medications No Known Medications Procedures Procedure Coding System Code Date Billing Notes on claim CPT-4 EC109 April 11, 2015 Results No Known Results Summary Purpose eClinicalWorks Submission
--- OUTSIDE RECORDS SUMMARY | 2017-04-11 22:18 | XMS REPORT ---
Author Author WOLF AGUIRRE Organization eClinicalWorks Address Unknown Phone Unavailable Care Team Providers Care Card Table Attendant Name Role Phone WOLF AGUIRRE CP Unavailable Allergies No Known Allergies Problems Problem Type Condition Code Onset Dates Condition Status Problem Sundowning F05 Active Problem Constipation, unspecified constipation type K59.00 Active Problem Failure to thrive in adult R62.7 Active Problem Dysthymic disorder F34.1 Active Problem Poor appetite R63.0 Active Problem Encounter for dental examination Z01.20 Active Problem Generalized anxiety disorder F41.1 Active Problem Hypertension I10 Active Problem CAD (coronary artery disease) I25.10 Active Medications No Known Medications Results No Known Results Summary Purpose eClinicalWorks Submission
--- OUTSIDE RECORDS SUMMARY | 2017-04-11 22:18 | XMS REPORT ---
Author Author JUAREZ SALAZAR eClinicalWorks Address Unknown Phone Unavailable Care Team Providers Care E Learning Designer Name Role Phone JUAREZ SALAZAR CP Unavailable Allergies, Adverse Reactions, Alerts Substance Reaction Event Type Clindamycin HCl Info Not Available Drug Allergy Problems Problem Type Condition Code Onset Dates Condition Status Problem Generalized anxiety disorder F41.1 Active Problem Hypertension 401.9 Active Problem CAD (coronary artery disease) I25.10 Active Problem Unspecified cardiac dysrhythmia 427.9 Active Assessment Encounter for dental examination Z01.20 Active Medications Medication Code System Code Instructions Start Date End Date Status Dosage Aspirin [facility] [address]-73 81 MG Orally Once a day from the [facility] Jul 1 tablet Carafate [facility] [address]-43 1 GM Orally 4 times a day from the [facility] Jul 27, 2015 1 tablet on an empty stomach Nexium [facility] 61033943328 40 TAKE ONE CAPSULE BY MOUTH DAILY Lisinopril [facility] 88671278514 5 MG TAKE 1 TABLET BY MOUTH ONCE DAILY Simvastatin [facility] 93880932322 40 TAKE ONE TABLET BY MOUTH EVERY EVENING Sertraline HCl [facility] [address]-21 100 MG Orally Once a day 1 tablet Carafate [facility] [address]-78 1 GM Orally Twice a day 1 tablet on an empty stomach Primidone [facility] 62274542157 50 MG 0.5 tablet by Oral route 1 time per day at bedtime for tremors Amoxicillin [facility] [address]-71 500 MG Orally 3 times a day Oct 10, 2015 Oct 13, 2015 1 tablet Triamcinolone Acetonide [facility] [address]-15 0.5 % Externally Twice a day Sep 10, 2015 1 application to affected area Klonopin [facility] [address]-80 0.5 MG Orally Once a day Jan 24, 2015 1 tablet by Oral route 1 time per day at bedtime Procedures Procedure Coding System Code Date INTRAORL-PERIAPICAL 1 FILM 76954 CPT-4 D0220 Oct 11, 2015 LTD ORAL EVALUATION - PROBLEM FOCUS CPT-4 D0140 Oct 11, 2015 Vital Signs Date/Time: Oct 11, 2015 Blood Pressure Diastolic 92 mmHg Blood Pressure Systolic 135 mmHg Results No Known Results Summary Purpose eClinicalWorks Submission
--- OUTSIDE RECORDS SUMMARY | 2017-04-11 22:18 | XMS REPORT ---
Author Author WOLF AGUIRRE Organization eClinicalWorks Address Unknown Phone Unavailable Care Team Providers Care Vice President Of Talent Acquisition Name Role Phone WOLF AGUIRRE CP Unavailable Allergies No Known Allergies Problems Problem Type Condition Code Onset Dates Condition Status Problem Hypertension I10 Active Problem CAD (coronary artery disease) I25.10 Active Problem Dysthymic disorder F34.1 Active Problem Sundowning F05 Active Problem Constipation, unspecified constipation type K59.00 Active Problem Encounter for dental examination Z01.20 Active Problem Generalized anxiety disorder F41.1 Active Medications No Known Medications Results No Known Results Summary Purpose eClinicalWorks Submission
--- OUTSIDE RECORDS SUMMARY | 2017-04-11 22:18 | XMS REPORT ---
Author Author WOLF AGUIRRE [facility] Address [address] [place] [address] Care Team Providers Care Polishing Machine Operator Helper Name Role Phone WOLF AGUIRRE Unavailable PROBLEMS Type Condition ICD9-CM Code [id number] Code Onset Dates Condition Status SNOMED Code Problem Sundowning F05 Active 310798370 Problem Constipation, unspecified constipation type K59.00 Active 17606489 Problem Poor appetite R63.0 Active 61321973 Problem Failure to thrive in adult R62.7 Active 361942171 Problem Encounter for dental examination Z01.20 Active 840427571 Problem Generalized anxiety disorder F41.1 Active 00611130 Problem Dysthymic disorder F34.1 Active 24408894 Problem Hypertension I10 Active 93344102 ALLERGIES Unknown Allergies SOCIAL HISTORY No smoking Hx information available PLAN OF CARE VITAL SIGNS MEDICATIONS Unknown Medications RESULTS No Results PROCEDURES No Known procedures IMMUNIZATIONS No Known Immunizations
--- OUTSIDE RECORDS SUMMARY | 2017-04-11 22:19 | XMS REPORT ---
Author Author WOLF AGUIRRE Organization eClinicalWorks Address Unknown Phone Unavailable Care Team Providers Care Former Hand Name Role Phone WOLF AGUIRRE CP Unavailable Allergies No Known Allergies Problems Problem Type Condition ICD-9 Code Onset Dates Condition Status Problem Unspecified cardiac dysrhythmia 427.9 Active Problem Hypertension 401.9 Active Medications No Known Medications Results No Known Results Summary Purpose eClinicalWorks Submission
--- OUTSIDE RECORDS SUMMARY | 2017-04-11 22:19 | XMS REPORT ---
Author Author WOLF AGUIRRE Organization eClinicalWorks Address Unknown Phone Unavailable Care Team Providers Care Skeins Yarn Examiner Name Role Phone WOLF AGUIRRE CP Unavailable [...]
--- OUTSIDE RECORDS SUMMARY | 2017-04-11 22:19 | XMS REPORT ---
Author Author WOLF AGUIRRE [facility] Address [address] [place] [address] Care Team Providers Care Carburetor Rebuilder Name Role Phone WOLF AGUIRRE Unavailable PROBLEMS Type Condition ICD9-CM Code [id number] Code Onset Dates Condition Status SNOMED Code Assessment Coronary artery disease involving nulato heart without angina pectoris, unspecified vessel or lesion type I25.10 Jul, Active 08626799 Assessment Weak R53.1 Jul, Active 59424404 Assessment Poor appetite R63.0 Jul, Active 88808611 Assessment Insomnia, unspecified type G47.00 Jul, Active 944343440 Assessment Urinary incontinence, unspecified type R32 Jul, Active 399031018 Assessment Fatigue, unspecified type R53.83 Jul, Active 57908064 Problem Hypertension I10 Active 01485933 Problem Encounter for dental examination Z01.20 Active 480579762 Problem Constipation, unspecified constipation type K59.00 Active 54549233 Assessment Constipation, unspecified constipation type K59.00 Jul, Active 36652272 Problem Generalized anxiety disorder F41.1 Active 32667881 Problem Sundowning F05 Active 261114816 ALLERGIES Substance Reaction Event Type Date Status Morphine Sulfate Unknown Drug Allergy Jul, Active Clindamycin HCl Unknown Drug Allergy Jul, Active SOCIAL HISTORY No smoking Hx information available PLAN OF CARE VITAL SIGNS Height 64 in 2016-07-31 Weight 124.5 lbs 2016-07-31 Heart Rate 76 bpm 2016-07-31 Respiratory Rate 16 2016-07-31 BMI 21.37 kg/m2 2016-07-31 Blood pressure systolic 110 mmHg 2016-07-31 Blood pressure diastolic 70 mmHg 2016-07-31 MEDICATIONS Medication Instructions Dosage Frequency Start Date End Date Duration Status Esomeprazole Magnesium 40 MG Orally Once a day 1 capsule 24h Active Aspirin 81 MG Orally Once a day from the hospital 1 tablet Jul, Active Ibuprofen 200 MG Orally Q6H as needed Active Flaxseed Oil 1000 MG Active Sertraline HCl 100 TAKE ONE TABLET BY MOUTH EVERY DAY 30 Active Multivitamin Adult - Active Amitiza 8 MCG Orally Twice a day 1 capsule with food 12h Jul, Active Acetaminophen Extra Strength 500 MG Orally every 4 hrs 1 tablet as needed 4h Active Cranberry Extract 250 MG Active Myrbetriq 25 MG Orally Once a day 1 tablet 24h Jul, Active Primidone 50 mg Orally Once a day at bedtime as directed April, Active Ondansetron HCl 4 MG Orally Q8H 1 tablet Active Lisinopril 5 MG TAKE 1 TABLET BY MOUTH ONCE DAILY 30 Active RESULTS Name Result Date Reference Range CRP 2016-07-31 C-Reactive Protein, Quant 3.0 0.0-4.9 TSH 2016-07-31 TSH 1.050 0.450-4.500 LIPID PANEL 2016-07-31 Cholesterol, Total 252 100-199 Triglycerides 126 0-149 HDL Cholesterol 67 >39 VLDL Cholesterol Get 25 5-40 LDL Cholesterol Calc 160 0-99 CMP 2016-07-31 Glucose, Serum 91 65-99 BUN 18 8-27 Creatinine, Serum 0.80 0.57-1.00 eGFR If NonAfricn Am 72 >59 eGFR If Africn Am 83 >59 BUN/Creatinine Ratio 23 11-26 Sodium, Serum 141 134-144 Potassium, Serum 4.7 3.5-5.2 Chloride, Serum 97 97-108 Carbon Dioxide, Total 22 18-29 Calcium, Serum 9.8 8.7-10.3 Protein, Total, Serum 7.7 6.0-8.5 Albumin, Serum 4.9 3.5-4.8 Globulin, Total 2.8 1.5-4.5 A/G Ratio 1.8 1.1-2.5 Bilirubin, Total 0.4 0.0-1.2 Alkaline Phosphatase, S 99 39-117 AST (SGOT) 22 0-40 ALT (SGPT) 12 0-32 PROCEDURES Procedure Date Ordered Related Diagnosis Body Site LAB [facility] Jul 31, 2016 VENIPUNCT, ROUTINE* Jul 31, 2016 Office Visit, Est Pt., Level 3 Jul 31, 2016 [facility] VISIT ESTABLISHED PATIENT Jul 31, 2016 IMMUNIZATIONS No Known Immunizations
--- OUTSIDE RECORDS SUMMARY | 2017-04-11 22:19 | XMS REPORT ---
Author Author LYNDON WRIGHT [facility] eClinicalWorks Address Unknown Phone Unavailable Care Team Providers Care Transmission System Operator Name Role Phone LYNDON WRIGHT Unavailable Allergies No Known Allergies Problems Problem Type Condition Code Onset Dates Condition Status Problem Generalized anxiety disorder F41.1 Active Problem Hypertension 401.9 Active Problem CAD (coronary artery disease) I25.10 Active Problem Unspecified cardiac dysrhythmia 427.9 Active Assessment Generalized anxiety disorder F41.1 Active Medications No Known Medications Procedures Procedure Coding System Code Date Psychotherapy, patient &/family, 45 minutes, established patient CPT-4 78298 Nov 02, 2015 [facility] VISIT MENTAL HEALTH ESTAB PT CPT-4 G0470 Nov 02, 2015 Results No Known Results Summary Purpose eClinicalWorks Submission
--- OUTSIDE RECORDS SUMMARY | 2017-04-11 22:19 | XMS REPORT ---
Author Author DAYAN HANDY eClinicalWorks Address Unknown Phone Unavailable Care Team Providers Care Embalmer Apprentice Name Role Phone DAYAN HANDY CP Unavailable Allergies, Adverse Reactions, Alerts Substance Reaction Event Type Morphine Sulfate Info Not Available Drug Allergy Clindamycin HCl Info Not Available Drug Allergy Problems Problem Type Condition Code Onset Dates Condition Status Assessment Vaginal discharge N89.8 Active Assessment Acute cystitis with hematuria N30.01 Active Problem Hypertension I10 Active Problem CAD (coronary artery disease) I25.10 Active Problem Dysthymic disorder F34.1 Active Problem Sundowning F05 Active Problem Constipation, unspecified constipation type K59.00 Active Problem Encounter for dental examination Z01.20 Active Problem Generalized anxiety disorder F41.1 Active Medications Medication Code System Code Instructions Start Date End Date Status Dosage Sucralfate [facility] [id number] 1 GM DISSOLVE ONE TABLET IN 10 MLS OF WATER AND DRINK BEFORE MEALS THREE TIMES DAILY AND BEFORE BEDTIME Remeron [facility] [address]-58 15 MG Orally Once a day Sep 11, 2016 1 tablet at bedtime Amitiza [facility] [address]-66 8 MCG Orally Twice a day Jul 31, 2016 1 capsule with food Diflucan [facility] [address]-62 150 MG Orally today Sep 11, 2016 1 tablet Ibuprofen [facility] [address]-74 200 MG Orally Q6H as needed not defined Myrbetriq [facility] [address]-40 25 MG Orally Once a day Jul 31, 2016 1 tablet Carafate [facility] 37022885052 1 TAKE ONE TABLET BY MOUTH FOUR TIMES A DAY Acetaminophen Extra Strength [facility] [address]-87 500 MG Orally every 4 hrs 1 tablet as needed Cranberry Extract [facility] 0[address]372 250 MG Orally not defined Lisinopril [facility] 40269400316 5 MG TAKE 1 TABLET BY MOUTH ONCE DAILY Macrobid [facility] [address]-33 100 MG Orally every 12 hrs Sep 25, 2016Oct 1 capsule with food Primidone [facility] [address]-22 50 mg Orally Once a day at bedtime April 05, 2016 as directed Aspirin [facility] [address]-35 81 MG Orally Once a day from the hospital Jul 1 tablet Multivitamin Adult [facility] [address]95 - Orally not defined Procedures Procedure Coding System Code Date MARTINEZ VAG, DNA, DIR PROBE CPT-4 87558 Sep 25, 2016 [facility] CPT-4 NOBLL Sep 25, 2016 URINALYSIS, AUTO, W/O SCOPE CPT-4 67535 Sep 25, 2016 SCR PAP SMER;NEW PT OBTAIN PREP&CONVY-LAB CPT-4 Q0091 Sep 25, 2016 [facility] VISIT NEW PATIENT CPT-4 G0466 Sep 25, 2016 Office Visit, Est Pt., Level 3 CPT-4 34583 Sep 25, 2016 [facility] VISIT ESTABLISHED PATIENT CPT-4 G0467 Sep 25, 2016 Results Name Result Date Reference Range Unit Abnormality Flag UA LONG DIP (IN HOUSE) ----ZAIDA trace 20160925 ----NIT negative [id number] ----Exp date [id number] ----Lot # [id number] ----SG 1.015 20160925 ----KET negative 20160925 ----ENMA negative 20160925 ----GLU negative 20160925 ----Odor nonoe 20160925 ----pH 6.0 20160925 ----BLO trace-intact 20160925 ----URO 0.2 20160925 ----Protein negative 20160925 ----Lot # [id number] ----Exp date 20160925 ----Clarity cloudy 20160925 ----Color yellow [id number] BACTERIAL VAGINOSIS (IN HOUSE) ----Exp date 20160925 ----Control + [id number] ----Lot # [id number] ----RESULTS negative [id number] Summary Purpose eClinicalWorks Submission
--- OUTSIDE RECORDS SUMMARY | 2017-04-11 22:19 | XMS REPORT ---
Author Author FLO COLEMAN [facility] [place] eClinicalWorks Address Unknown Phone Unavailable Care Team Providers Care Ink Maker Name Role Phone FLO COLEMAN CP Unavailable Allergies, Adverse Reactions, Alerts Substance Reaction Event Type N.K.D.A. Info Not Available Non Drug Allergy Problems Problem Type Condition ICD-9 Code Onset Dates Condition Status Assessment UTI (urinary tract infection) 599.0 Active Problem Unspecified cardiac dysrhythmia 427.9 Active Medications Medication Code System Code Instructions Start Date End Date Status Dosage Simvastatin [facility] 98499491858 40 TAKE ONE TABLET BY MOUTH EVERY EVENING Klonopin [facility] [address]-48 0.5 MG Orally Once a day Jan 24, 2015 1 tablet by Oral route 1 time per day at bedtime Nexium [facility] 20923342718 40 TAKE ONE CAPSULE BY MOUTH DAILY Primidone [facility] [address]-01 50 MG February 09, 2015 0.5 tablet by Oral route 1 time per day at bedtime for tremors Sertraline HCl [facility] [address]-14 100 MG Orally Once a day 1 tablet Cipro [facility] [address]-87 500 MG Orally Twice a day Jul 12, 2015 Jul 19, 2015 1 tablet Carafate [facility] [address]-93 1 GM Orally Twice a day 1 tablet on an empty stomach Procedures Procedure Coding System Code Date LAB [facility] CPT-4 NOBLL Jul 12, 2015 [facility] VISIT ESTABLISHED PATIENT CPT-4 G0467 Jul 12, 2015 URINALYSIS, AUTO, W/O SCOPE CPT-4 52873 Jul 12, 2015 Office Visit, Est Pt., Level 3 CPT-4 63265 Jul 12, 2015 Vital Signs Date/Time: Jul 12, 2015 Temperature 98.9 F Weight 131 lbs Height 64 in BMI 22.48 Index Blood Pressure Diastolic 78 mmHg Blood Pressure Systolic 120 mmHg Cardiac Monitoring Heart Rate 76 bpm Results No Known Results Summary Purpose eClinicalWorks Submission
--- OUTSIDE RECORDS SUMMARY | 2017-04-11 22:19 | XMS REPORT ---
Author Author DEE ANTONIO Organization eClinicalWorks Address Unknown Phone Unavailable Care Team Providers Care Cinder Worker Name Role Phone DEE ANTONIO CP Unavailable Allergies, Adverse Reactions, Alerts Substance Reaction Event Type Morphine Sulfate Info Not Available Drug Allergy Clindamycin HCl Info Not Available Drug Allergy Problems Problem Type Condition Code Onset Dates Condition Status Problem CAD (coronary artery disease) I25.10 Active Problem Encounter for dental examination Z01.20 Active Problem Hypertension I10 Active Problem Constipation, unspecified constipation type K59.00 Active Assessment Dysuria R30.0 Active Problem Generalized anxiety disorder F41.1 Active Problem Sundowning F05 Active Medications Medication Code System Code Instructions Start Date End Date Status Dosage Ibuprofen [facility] [address]-22 200 MG Orally Q6H as needed not defined Aspirin [facility] [address]-42 81 MG Orally Once a day from the hospital Jul [address] [facility] [address] - Orally not defined Cranberry Extract [facility] 8[address]17-[address]232 250 MG Orally not defined Apixaban [facility] [address]-68 5 MG Orally not defined Diflucan [facility] [address]-22 150 MG Orally Once a day and may repeat when done with the Cipro June 13, [address] [facility] 97996276258 5 MG TAKE 1 TABLET BY MOUTH ONCE DAILY Ondansetron HCl [facility] [address]-89 4 MG Orally Q8H 1 tablet Metoprolol Succinate ER [facility] [address]-24 25 MG Orally Once a day [address] [facility] 79195669751 100 TAKE ONE TABLET BY MOUTH EVERY DAY Primidone [facility] [address]-00 50 mg Orally Once a day at bedtime April 05, 2016 as directed Acetaminophen Extra Strength [facility] [address]-20 500 MG Orally every 4 hrs 1 tablet as needed Flaxseed Oil [facility] [address]-72 1000 MG Orally not defined Esomeprazole Magnesium [facility] [address]-03 40 MG Orally Once a day 1 capsule Procedures Procedure Coding System Code Date [facility] VISIT ESTABLISHED PATIENT CPT-4 G0467 June 29, 2016 Office Visit, Est Pt., Level 3 CPT-4 66768 June 29, 2016 URINALYSIS, AUTO, W/O SCOPE CPT-4 84816 June 29, 2016 Vital Signs Date/Time: June 29, 2016 Cardiac Monitoring Heart Rate 72 bpm Weight 128.3 lbs Height 64 in BMI 22.02 Index Blood Pressure Diastolic 68 mmHg Blood Pressure Systolic 114 mmHg Results No Known Results Summary Purpose eClinicalWorks Submission
--- OUTSIDE RECORDS SUMMARY | 2017-04-11 22:19 | XMS REPORT ---
Author Author LYNDON WRIGHT [facility] eClinicalWorks Address Unknown Phone Unavailable Care Team Providers Care Tan Room Supervisor Name Role Phone LYNDON WRIGHT Unavailable Allergies No Known Allergies Problems Problem Type Condition Code Onset Dates Condition Status Problem Hypertension 401.9 Active Problem Unspecified cardiac dysrhythmia 427.9 Active Problem Generalized anxiety disorder F41.1 Active Assessment Generalized anxiety disorder F41.1 Active Medications No Known Medications Procedures Procedure Coding System Code Date Psychotherapy, patient &/family, 45 minutes, established patient CPT-4 54218 Sep 29, 2015 [facility] VISIT MENTAL HEALTH ESTAB PT CPT-4 G0470 Sep 29, 2015 Results No Known Results Summary Purpose eClinicalWorks Submission
--- OUTSIDE RECORDS SUMMARY | 2017-04-11 22:19 | XMS REPORT ---
Author Author WOLF AGUIRRE Organization eClinicalWorks Address Unknown Phone Unavailable Care Team Providers Care Research Environmental Engineer Name Role Phone WOLF AGUIRRE CP Unavailable Allergies No Known Allergies Problems Problem Type Condition Code Onset Dates Condition Status Problem Generalized anxiety disorder F41.1 Active Problem Hypertension 401.9 Active Problem CAD (coronary artery disease) I25.10 Active Problem Unspecified cardiac dysrhythmia 427.9 Active Medications No Known Medications Results No Known Results Summary Purpose eClinicalWorks Submission
--- OUTSIDE RECORDS SUMMARY | 2017-04-11 22:19 | XMS REPORT ---
Author Author WOLF AGUIRRE Organization eClinicalWorks Address Unknown Phone Unavailable Care Team Providers Care Predatory Hunter Name Role Phone WOLF AGUIRRE CP Unavailable [...]
--- OUTSIDE RECORDS SUMMARY | 2017-04-11 22:19 | XMS REPORT ---
Author Author WOLF AGUIRRE Organization eClinicalWorks Address Unknown Phone Unavailable Care Team Providers Care Gill Box Operator Name Role Phone WOLF AGURIRE CP Unavailable Allergies No Known Allergies Problems [...]
--- OUTSIDE RECORDS SUMMARY | 2017-04-11 22:19 | XMS REPORT ---
Author Author WOLF AGUIRRE Organization eClinicalWorks Address Unknown Phone Unavailable Care Team Providers Care [facility] Name Role Phone WOLF AGUIRRE CP Unavailable Allergies No Known Allergies Problems Problem Type Condition Code Onset Dates Condition Status Problem Generalized anxiety disorder F41.1 Active Problem Hypertension 401.9 Active Problem CAD (coronary artery disease) I25.10 Active Problem Unspecified cardiac dysrhythmia 427.9 Active Medications No Known Medications Results No Known Results Summary Purpose eClinicalWorks Submission
--- OUTSIDE RECORDS SUMMARY | 2017-04-11 22:19 | XMS REPORT ---
Author Author WOLF AGUIRRE Organization eClinicalWorks Address Unknown Phone Unavailable Care Team Providers Care Certified Solid Waste Facility Operator Name Role Phone WOLF AGUIRRE CP [...]
--- OUTSIDE RECORDS SUMMARY | 2017-04-11 22:19 | XMS REPORT ---
Author Author WOLF AGUIRRE Organization eClinicalWorks Address Unknown Phone Unavailable Care Team Providers Care Race Relations Professor Name Role Phone WOLF AGUIRRE CP Unavailable [...]
--- OUTSIDE RECORDS SUMMARY | 2017-04-11 22:20 | XMS REPORT ---
Author Author WOLF AGUIRRE Organization eClinicalWorks Address Unknown Phone Unavailable Care Team Providers Care Camera Systems Engineer Name Role Phone WOLF AGUIRRE CP Unavailable Allergies No Known Allergies Problems Problem Type Condition ICD-9 Code Onset Dates Condition Status Problem Unspecified cardiac dysrhythmia 427.9 Active Problem Hypertension 401.9 Active Medications No Known Medications Results No Known Results Summary Purpose eClinicalWorks Submission
--- OUTSIDE RECORDS SUMMARY | 2017-04-11 22:20 | XMS REPORT ---
Author Author CESAR CANNON [facility] eClinicalWorks Address Unknown Phone Unavailable Care Team Providers Care Manager Content Name Role Phone CESAR CANNON CP Unavailable Allergies, Adverse Reactions, Alerts Substance Reaction Event Type Clindamycin HCl Info Not Available Drug Allergy Problems Problem Type Condition Code Onset Dates Condition Status Problem Generalized anxiety disorder F41.1 Active Problem Hypertension 401.9 Active Problem CAD (coronary artery disease) I25.10 Active Problem Unspecified cardiac dysrhythmia 427.9 Active Assessment CAD (coronary artery disease) I25.10 Active Medications Medication Code System Code Instructions Start Date End Date Status Dosage Aspirin [facility] [address]-10 81 MG Orally Once a day from the [facility] Jul 1 tablet Carafate [facility] [address]-77 1 GM Orally 4 times a day from the [facility] Jul 27, 2015 1 tablet on an empty stomach Carafate [facility] [address]-37 1 GM Orally Twice a day 1 tablet on an empty stomach Triamcinolone Acetonide [facility] [address]-40 0.5 % Externally Twice a day Sep 10, 2015 1 application to affected area Simvastatin [facility] 23764869032 40 TAKE ONE TABLET BY MOUTH EVERY EVENING Klonopin [facility] [address]-03 0.5 MG Orally Once a day Jan 24, 2015 1 tablet by Oral route 1 time per day at bedtime Amoxicillin [facility] [address]-75 500 MG Orally 3 times a day Oct 10, 2015 Oct 13, 2015 1 tablet Nexium [facility] 91807821005 40 TAKE ONE CAPSULE BY MOUTH DAILY Lisinopril [facility] 91485339263 5 MG TAKE 1 TABLET BY MOUTH ONCE DAILY Primidone [facility] 30524962552 50 MG 0.5 tablet by Oral route 1 time per day at bedtime for tremors Sertraline HCl [facility] [address]-81 100 MG Orally Once a day 1 tablet Procedures Procedure Coding System Code Date Office Visit, Est Pt., Level 3 CPT-4 08463 Oct 10, 2015 [facility] CPT-4 G0467 Oct 10, 2015 Vital Signs Date/Time: Oct 10, 2015 Temperature 96.0 F Weight 128.6 lbs Height 64 in BMI 22.07 Index Blood Pressure Diastolic 80 mmHg Blood Pressure Systolic 122 mmHg Cardiac Monitoring Heart Rate 84 bpm Results No Known Results Summary Purpose eClinicalWorks Submission
--- OUTSIDE RECORDS SUMMARY | 2017-04-11 22:20 | XMS REPORT ---
Author Author WOLF AGUIRRE Organization eClinicalWorks Address Unknown Phone Unavailable Care Team Providers Care Supervisor Concrete Pipe Plant Name Role Phone WOLF AGUIRRE CP Unavailable Allergies No Known Allergies Problems Problem Type Condition Code Onset Dates Condition Status Problem Hypertension 401.9 Active Problem Unspecified cardiac dysrhythmia 427.9 Active Problem Generalized anxiety disorder F41.1 Active Medications No Known Medications Results No Known Results Summary Purpose eClinicalWorks Submission
--- OUTSIDE RECORDS SUMMARY | 2017-04-11 22:20 | XMS REPORT ---
Author Author WOLF AGUIRRE Organization eClinicalWorks Address Unknown Phone Unavailable Care Team Providers Care Hat Trimmer Name Role Phone WOLF AGUIRRE CP Unavailable Allergies No Known Allergies Problems Problem Type Condition ICD-9 Code Onset Dates Condition Status Problem Unspecified cardiac dysrhythmia 427.9 Active Medications No Known Medications Results No Known Results Summary Purpose eClinicalWorks Submission
--- OUTSIDE RECORDS SUMMARY | 2017-04-11 22:20 | XMS REPORT ---
Author Author WOLF AGUIRRE Organization eClinicalWorks Address Unknown Phone Unavailable Care Team Providers Care Forest Fire Management Officer Name Role Phone WOLF AGUIRRE CP Unavailable Allergies No Known Allergies Problems Problem Type Condition ICD-9 Code Onset Dates Condition Status Problem Unspecified cardiac dysrhythmia 427.9 Active Medications Medication Code System Code Instructions Start Date End Date Status Dosage Carafate [facility] [address]-71 1 GM Orally 4 times a day from the hospital Jul 27, 2015 1 tablet on an empty stomach Aspirin [facility] [address]-70 81 MG Orally Once a day from the [facility] Jul [address] [facility] [address]-19 5 MG Orally Once a day from the [facility] Jul 27, 2015 1 tablet Results No Known Results Summary Purpose eClinicalWorks Submission
--- OUTSIDE RECORDS SUMMARY | 2017-04-11 22:20 | XMS REPORT ---
Author Author LIN CANO [facility] eClinicalWorks Address Unknown Phone Unavailable Care Team Providers Care Pipe Coverer Name Role Phone LIN CANO CP Unavailable Allergies, Adverse Reactions, Alerts Substance Reaction Event Type Clindamycin HCl Info Not Available Drug Allergy Problems Problem Type Condition Code Onset Dates Condition Status Problem Generalized anxiety disorder F41.1 Active Problem Hypertension 401.9 Active Problem CAD (coronary artery disease) I25.10 Active Problem Unspecified cardiac dysrhythmia 427.9 Active Assessment Acute diarrhea R19.7 Active Medications Medication Code System Code Instructions Start Date End Date Status Dosage Tylenol [facility] [address]-94 not defined Ibuprofen [place] 0 not defined Aspirin [facility] [address]-52 81 MG Orally Once a day from the hospital Jul 1 tablet Sucralfate [facility] 53016123946 1 GM DISSOLVE ONE TABLET IN 10 MLS OF WATER AND DRINK BEFORE MEALS THREE TIMES DAILY AND BEFORE BEDTIME Triamcinolone Acetonide [facility] [address]-15 0.5 % Externally Twice a day Sep 10, 2015 1 application to affected area Primidone [facility] 38995248216 50 MG TAKE 1/2 TABLET BY MOUTH AT BEDTIME FOR TREMORS Sertraline HCl [facility] [address]-85 100 MG Orally Once a day 1 tablet Acidophilus [facility] 25336-17729 100 MG Orally 2 times a day Dec 30, 2015 Jan 04, 2016 1 Carafate [facility] [address]-27 1 GM Orally 4 times a day from the [facility] Jul 27, 2015 1 tablet on an empty stomach Klonopin [facility] [address]-42 0.5 MG Orally Once a day Jan 24, 2015 1 tablet by Oral route 1 time per day at bedtime Zofran [facility] [address]-43 4 MG Orally prn n/v; q 8 hours Dec 15, 2015 1 tablet Lisinopril [facility] 34333867635 5 MG TAKE 1 TABLET BY MOUTH ONCE DAILY Procedures Procedure Coding System Code Date Office Visit, Est Pt., Level 3 CPT-4 55804 Dec 30, 2015 [facility] VISIT ESTABLISHED PATIENT CPT-4 G0467 Dec 30, 2015 Vital Signs Date/Time: Dec 30, 2015 Temperature 97.8 F Weight 130.4 lbs Height 64 in BMI 22.38 Index Blood Pressure Diastolic 86 mmHg Blood Pressure Systolic 156 mmHg Cardiac Monitoring Heart Rate 68 bpm Results No Known Results Summary Purpose eClinicalWorks Submission
--- OUTSIDE RECORDS SUMMARY | 2017-04-11 22:20 | XMS REPORT ---
Author Author LYNDON WRIGHT [facility] [place] eClinicalWorks Address Unknown Phone Unavailable Care Team Providers Care Skate Boarder Name Role Phone LYNDON WRIGHT Unavailable Allergies No Known Allergies Problems Problem Type Condition ICD-9 Code Onset Dates Condition Status Problem Unspecified cardiac dysrhythmia 427.9 Active Assessment Generalized anxiety disorder 300.02 Active Problem Hypertension 401.9 Active Assessment Hypertension 401.9 Active Assessment No condition on [place] II V71.09 Active Assessment Heart problem 429.9 Active Medications Medication Code System Code Instructions Start Date End Date Status Dosage Lisinopril [facility] [address]-45 5 MG Orally Once a day from the [facility] Jul 27, 2015 1 tablet Carafate [facility] [address]-27 1 GM Orally 4 times a day from the [facility] Jul 27, 2015 1 tablet on an empty stomach Nexium [facility] 13431962580 40 TAKE ONE CAPSULE BY MOUTH DAILY Primidone [facility] [address]-80 50 MG February 09, 2015 0.5 tablet by Oral route 1 time per day at bedtime for tremors Aspirin [facility] [address]-72 81 MG Orally Once a day from the [facility] Jul 1 tablet Sertraline HCl [facility] [address]-80 100 MG Orally Once a day 1 tablet Carafate [facility] [address]-38 1 GM Orally Twice a day 1 tablet on an empty stomach Simvastatin [facility] 75589372669 40 TAKE ONE TABLET BY MOUTH EVERY EVENING Klonopin [facility] [address]-23 0.5 MG Orally Once a day Jan 24, 2015 1 tablet by Oral route 1 time per day at bedtime Procedures Procedure Coding System Code Date Psych diagnostic evaluation, established patient CPT-4 36601 Aug 04, 2015 [facility] VISIT MENTAL HEALTH ESTAB PT CPT-4 G0470 Aug 04, 2015 Results No Known Results Summary Purpose eClinicalWorks Submission
== END 2017-03-08 19:15 | disposition home or self-care (01) ==
LOC: EDUNIT# 14:58 → ER 15:00
DX: F41.9 Anxiety disorder, unspecified (principal); M25.551 Pain in right hip; M25.552 Pain in left hip; I10 Essential (primary) hypertension; I25.10 Atherosclerotic heart disease of native coronary artery without angina pectoris; Z79.82 Long term (current) use of aspirin; Z79.899 Other long term (current) drug therapy; Z79.01 Long term (current) use of anticoagulants; Z91.14 Patient's other noncompliance with medication regimen; Z95.1 Presence of aortocoronary bypass graft; Z96.641 Presence of right artificial hip joint
CPT/HCPCS: 36415; 70450; 74022; 80053; 84443; 85025; 93005

== ENCOUNTER 2017-07-30 17:14 | Emergency (ER) | payer MEDICARE, MEDICAID ==
[~2017-07-30] VITALS: Ht 165.1 cm; Wt 58.5 kg
[~2017-07-30 17:14] MED LIST changes: -METO-270 PO; +METO-387 PO
--- NOTE | 2017-07-30 18:48 | ED GI ---
General Chief Complaint: Abdominal/GI Problems Stated Complaint: CONSTIPATION Nursing Triage Note: pt reports abdominal pain and constipation for "months" Sepsis Screen: No Definite Risk Source of Information: Patient Exam Limitations: No Limitations History of Present Illness Time Seen By Provider: 18:15 Initial Comments Here with report of constipation for 2 months. States she is only going a table spoon at a time of loose stool. Denies blood in stool. Seen by her provider today but did not think the evaluation was complete and wanted second opinion. Concerns due to stool problems and distention. Denies fever/chills. Complains of early satiety. Timing/Duration: Other Severity/Quality: Moderate, Other (constipation) Location: Generalized Abdomen Radiation: No Radiation Activities at Onset: None Modifying Factors: Improves With Defecating Associated Symptoms: No Back Pain, No Chest Pain, No Fever/Chills, No Fatigue, No Nausea/Vomiting, No Shortness of Air, Swelling/Mass in Abdomen, No Weakness Allergies and Home Medications Allergies Coded Allergies: morphine (Verified Allergy, Unknown, 04/28/16) can take hydrocodone per pt Home Medications Acetaminophen 500 Mg Tablet, 500 MG PO Q4H PRN for PAIN/FEVER, (Reported) Apixaban 5 Mg Tablet, 5 MG PO BID, #60 Ref 1 Prescribed by: FRED GIBBONS on 05/02/16 1102 Aspirin 81 Mg Tablet.dr, 81 MG PO DAILY, (Reported) Cranberry Extract 250 Mg Capsule, 2 CAP PO DAILY, (Reported) Docusate Sodium 100 Mg Capsule, 100 MG PO HS, #30 Prescribed by: FRANCE NAVARRO on 05/11/16 0920 Esomeprazole Magnesium 40 Mg Capsule.dr, 40 MG PO DAILY, (Reported) Flaxseed 1,000 Mg Capsule, 1,000 MG PO DAILY, (Reported) Hydrocodone/Acetaminophen 1 Each Tablet, 1-2 TAB PO Q4H PRN for SEVERE PAIN, #60 Prescribed by: FRANCE NAVARRO on 05/11/16 0920 Ibuprofen 200 Mg Tablet, 200 MG PO Q6H PRN for PAIN/FEVER, (Reported) Lisinopril 5 Mg Tablet, 5 MG PO DAILY, (Reported) Multivitamin 1 Each Tablet, 1 TAB PO DAILY, (Reported) Ondansetron HCl 4 Mg Tab, 4 MG PO Q8H PRN for NAUSEA/VOMITING, (Reported) Polyethylene Glycol 3350 17 Gm Powd.pack, 17 GM PO DAILY, #1 Prescribed by: FRANCE NAVARRO on 05/11/16 0920 Primidone 50 Mg Tablet, 50 MG PO HS, (Reported) Sertraline HCl 100 Mg Tablet, 100 MG PO DAILY, (Reported) Sucralfate 1 Gm Tablet, 1 GM PO QID, (Reported) Review of Systems Constitutional: see HPI, No chills, No fever EENTM: No Symptoms Reported Respiratory: No Symptoms Reported Cardiovascular: No Symptoms Reported Gastrointestinal: See HPI, Abdomen Distended, Abdominal Pain, Constipated, Denies Nausea, Denies Vomiting Genitourinary: No Symptoms Reported Musculoskeletal: no symptoms reported Skin: no symptoms reported Psychiatric/Neurological: No Symptoms Reported All Other Systems Reviewed Negative Unless Noted: Yes Past Dsncine-Pnfhex-Mcdroh Hx Patient Social History Alcohol Use: Denies Use Recreational Drug Use: No Smoking Status: Never a Smoker Recent Foreign Travel: No Contact w/Someone Who Travel: No Recent Infectious Disease Expo: No Recent Hopitalizations: Yes (anemia-unsure of date) Physical Abuse: No Sexual Abuse: No Mistreated: No Fear: No Immunizations Up To Date Tetanus Booster (TDap): Unknown Date of Pneumonia Vaccine: April 01, 2009 Date of Influenza Vaccine: Sep 01, 2013 Surgeries History of Surgeries: Yes (TRIPLE BYPASS-2005, r HIP REPLAEMENT , l hip 2016) Surgeries: Breast, Cardiac, CABG, Joint Replacement, Open Heart Surgery, Orthopedic Respiratory History of Respiratory Disorde: Yes (WHOOPING COUGH CHILD) Currently Using CPAP: No Cardiovascular History of Cardiac Disorders: Yes (CABG) Cardiac Disorders: Coronary Artery Disease, High Cholesterol, Hypertension Neurological History of Neurological Disord: No Reproductive System Hx Reproductive Disorders: Yes Sexually Transmitted Disease: No HIV/AIDS: No Female Reproductive Disorders: Denies Genitourinary Genitourinary Disorders: Bladder Infection, UTI-Chronic Gastrointestinal History of Gastrointestinal Di: Yes Gastrointestinal Disorders: Gastroesophageal Reflux Musculoskeletal History of Musculoskeletal Dis: Yes ("CRACKED PELVIS", RIGHT HIP REPLACEMENT, LEFT HIP FRACTURE) Musculoskeletal Disorders: Arthritis, Fractures Endocrine History of Endocrine Disorders: No Cancer History of Cancer: No Psychosocial History of Psychiatric Problem: Yes Behavioral Health Disorders: Anxiety, Depression Suicide Risk Score: 0 Integumentary History of Skin or Integumenta: Yes Skin/Integumentary Disorders: Pruritis Blood Transfusions History of Blood Disorders: No Adverse Reaction to a Blood Tr: No Reviewed Nursing Assessment Reviewed/Agree w Nursing PMH: Yes Family Medical History Family Medial History: Cardiovascular disease 19 MOTHER Diabetes mellitus G8 BROTHER Hypercholesterolemia 19 FATHER Physical Exam Vital Signs VS - Last 72 Hours, by Label 07/30/17 17:59 Temp 97.3 Pulse 75 Resp 18 B/P (MAP) 168/79 Pulse Ox 96 Capillary Refill : Less Than 3 Seconds General Appearance: WD/WN, no apparent distress HEENT: PERRL/EOMI, pharynx normal Neck: full range of motion, supple Respiratory: lungs clear, normal breath sounds Cardiovascular: regular rate, rhythm, no murmur Gastrointestinal: soft, distended, No tenderness, No mass Extremities: non-tender, normal inspection Back: normal inspection, no CVA tenderness, no vertebral tenderness Neurologic/Psychiatric: alert, oriented x 3 Skin: normal color, warm/dry Progress/Results/Core Measures Results/Orders Lab Results Laboratory Tests Test 07/30/17 18:04 07/30/17 18:43 Range/Units Urine Color YELLOW Urine Clarity CLEAR Urine pH 7 5-9 Urine Specific [place] 1.005 L 1.016-1.022 Urine Protein NEGATIVE NEGATIVE Urine Glucose (UA) NEGATIVE NEGATIVE Urine Ketones NEGATIVE NEGATIVE Urine Nitrite NEGATIVE NEGATIVE Urine Bilirubin NEGATIVE NEGATIVE Urine Urobilinogen NORMAL NORMAL MG/DL Urine Leukocyte Esterase 2+ H NEGATIVE Urine RBC (Auto) NEGATIVE NEGATIVE Urine RBC NONE /HPF Urine WBC 0-2 /HPF Urine Squamous Epithelial Cells RARE /HPF Urine Crystals NONE /LPF Urine Bacteria TRACE /HPF Urine Casts NONE /LPF Urine Mucus NEGATIVE /LPF Urine Culture Indicated NO White Blood Count 7.4 4.3-11.0 10^3/uL Red Blood Count 4.49 4.35-5.85 10^6/uL Hemoglobin 13.8 11.5-16.0 G/DL Hematocrit 41 35-52 % Mean Corpuscular Volume 91 80-99 FL Mean Corpuscular Hemoglobin 31 25-34 PG Mean Corpuscular Hemoglobin Concent 34 32-36 G/DL Red Cell Distribution Width 12.9 10.0-14.5 % Platelet Count 252 130-400 10^3/uL Mean Platelet Volume 10.4 7.4-10.4 FL Neutrophils (%) (Auto) 60 42-75 % Lymphocytes (%) (Auto) 26 12-44 % Monocytes (%) (Auto) 11 0-12 % Eosinophils (%) (Auto) 3 0-10 % Basophils (%) (Auto) 0 0-10 % Neutrophils # (Auto) 4.4 1.8-7.8 X 10^3 Lymphocytes # (Auto) 2.0 1.0-4.0 X 10^3 Monocytes # (Auto) 0.8 0.0-1.0 X 10^3 Eosinophils # (Auto) 0.2 0.0-0.3 10^3/uL Basophils # (Auto) 0.0 0.0-0.1 10^3/uL Sodium Level 135 135-145 MMOL/L Potassium Level 4.2 3.6-5.0 MMOL/L Chloride Level 98 98-107 MMOL/L Carbon Dioxide Level 28 21-32 MMOL/L Anion Gap 9 5-14 MMOL/L Blood Urea Nitrogen 13 7-18 MG/DL Creatinine 0.77 0.60-1.30 MG/DL Estimat Glomerular Filtration Rate > 60 BUN/Creatinine Ratio 17 Glucose Level 98 70-105 MG/DL Calcium Level 9.5 8.5-10.1 MG/DL Magnesium Level 2.2 1.8-2.4 MG/DL Total Bilirubin 0.4 0.1-1.0 MG/DL Aspartate Amino Transf (AST/SGOT) 20 5-34 U/L Alanine Aminotransferase (ALT/SGPT) 10 0-55 U/L Alkaline Phosphatase 102 40-136 U/L Total Protein 7.4 6.4-8.2 GM/DL Albumin 4.3 3.2-4.5 GM/DL Thyroid Stimulating Hormone (TSH) 1.19 0.35-4.94 UIU/ML My Orders Orders - MEI HILL MD Cbc With Automated Diff (07/30/17 18:44) Comprehensive Metabolic Panel (07/30/17 18:44) Magnesium (07/30/17 18:44) Thyroid Stimulating Hormone (07/30/17 18:44) Ua Culture If Indicated (07/30/17 18:44) Ct Abdomen/Pelvis W (07/30/17 19:24) Ns Iv 500 Ml (Sodium Chloride 0.9%) (07/30/17 19:24) Iohexol Injection (Omnipaque 350 Mg/Ml 1 (07/30/17 20:00) Ns (Ivpb) (Sodium Chloride 0.9% Ivpb Bag (07/30/17 20:00) Medications Given in ED Current Medications Medications Dose Ordered Sig/Mayela Route Start Time Stop Time Status Last Admin Dose Admin Iohexol 100 ml ONCE ONCE IV 07/30/17 20:00 07/30/17 20:01 DC 07/30/17 19:54 100 ML Sodium Chloride 100 ml ONCE ONCE IV 07/30/17 20:00 07/30/17 20:01 DC 07/30/17 19:54 80 ML Vital Signs/I&O Vital Sign - Last 12Hours 07/30/17 17:59 Temp 97.3 Pulse 75 Resp 18 B/P (MAP) 168/79 Pulse Ox 96 Blood Pressure Mean: 108 Progress Note : Progress Note Seen and evaluated. U/A, labs ordered. Anticipate CT a/p. Monitor patient. CT ordered. 2024: CT results noted. This was discussed with the patient. Patient has no acute findings on any of the evaluation. We will initiate probiotics to help. I did discuss the case with Dr. Mays and she agrees. Patient to do [id number] probiotics per package directions. Discharged home with return precautions. Patient verbalize understanding instructions and agreement with plan. Diagnostic Imaging Diagonstic Imaging: CT Plain Films/CT/US/NM/MRI: abdomen, pelvis Comments VIA [facility], [facility]. [place], [place] NAME: BAYLEE PEPE [facility] REC#: [id number] PT STATUS: REG ER : 1940 PHYSICIAN: MEI HILL MD ADMIT DATE: 07/30/17/ER Draft Date of Exam:07/30/17 CT ABDOMEN/PELVIS W PROCEDURE: CT abdomen and pelvis with contrast. TECHNIQUE: Multiple contiguous axial images were obtained through the abdomen and pelvis after administration of intravenous contrast. INDICATION: Abdominal pain and nausea Comparison is made to study of 08/10/2016. No focal hepatic or splenic abnormality is identified. Pancreas and adrenal glands are unremarkable. There is malrotation of the right kidney. Kidneys otherwise unremarkable with bilateral contrast excretion. There is no evidence of free fluid in the abdomen or pelvis. No localized fluid collection is seen to indicate an abscess. There is mild fluid distention of small bowel loops. No obstructing lesion is identified. Gas and stool seen throughout the colon. There is mild to moderate aortoiliac atherosclerotic calcification. Partially opacified urinary bladder is unremarkable. Postoperative changes are noted in the proximal femora. IMPRESSION: No definite change compared to previous study. There is fluid distention of small bowel without obstructing lesion identified. Dictated on workstation # [id number] Dict: 07/30/172001 Trans: 07/30/172008 [facility] [id number] Interpreted by: GIANA ALLEN MD Electronically signed by: Departure Impression Impression: Primary Impression: Abdominal pain Qualified Codes: R10.84 - Generalized abdominal pain Disposition: HOME, SELF-CARE Condition: Stable Departure-Patient Inst. Decision time for Depature: 20:34 Referrals: [facility] (PCP/Family) Primary Care Physician Patient Instructions: Acute Abdomen (Belly Pain), Adult (DC) Add. Discharge Instructions: All discharge instructions reviewed with patient and/or family. Voiced understanding. You may take [id number] probiotics twice daily or per package directions. You may pick this up with a local pharmacy. Follow-up with your DrJak in one week for recheck and further evaluation. Return for worsening, fever, vomiting , weakness, breathing problems or other concerns as needed. Copy Copies To 1: BATSHEVA MAYS MD, TIMOTHY D MD Jul 30, 2017 18:48
[2017-07-30 18:51] LABS: BILIRUBIN,URINE NEGATIVE (NEGATIVE); KETONES,URINE NEGATIVE (NEGATIVE); LEUKOCYTE ESTERASE ,URINE 2+ (NEGATIVE); NITRITE,URINE NEGATIVE (NEGATIVE); PH,URINE 7 (5-9); PROTEIN,URINE NEGATIVE (NEGATIVE); UROBILINOGEN,URINE NORMAL (NORMAL)
[2017-07-30 18:52] LABS: BASOPHILS % (AUTO) 0 % (0-10); EOSINOPHILS # (AUTO) 0.2 10^3/uL (0.0-0.3); EOSINOPHILS % (AUTO) 3 % (0-10); LYMPHOCYTES % (AUTO) 26 % (12-44); MEAN CORPUSCULAR HEMOGLOBIN 31 PG (25-34); MEAN CORPUSCULAR HGB CONC 34 G/DL (32-36); MEAN CORPUSCULAR VOLUME 91 FL (80-99); MEAN PLATELET VOLUME 10.4 FL (7.4-10.4); MONOCYTES # (AUTO) 0.8 X 10^3 (0.0-1.0); MONOCYTES % (AUTO) 11 % (0-12); NEUTROPHILS # (AUTO) 4.4 X 10^3 (1.8-7.8); NEUTROPHILS % (AUTO) 60 % (42-75); PLATELET COUNT 252 10^3/uL (130-400); RED BLOOD COUNT 4.49 10^6/uL (4.35-5.85); RED CELL DISTRIBUTION WIDTH 12.9 % (10.0-14.5); WHITE BLOOD COUNT 7.4 10^3/uL (4.3-11.0)
[2017-07-30 19:01] LABS: SQUAMOUS EPITHELIAL CELL,UR RARE /HPF; WBC,URINE 0-2 /HPF
[2017-07-30 19:11] LABS: ALANINE AMINOTRANSFERASE 10 U/L (0-55); ALBUMIN 4.3 GM/DL (3.2-4.5); ANION GAP 9 MMOL/L (5-14); ASPARTATE AMINO TRANSFERASE 20 U/L (5-34); BILIRUBIN,TOTAL 0.4 MG/DL (0.1-1.0); BLOOD UREA NITROGEN 13 MG/DL (7-18); BUN/CREATININE RATIO 17; CALCIUM 9.5 MG/DL (8.5-10.1); CARBON DIOXIDE 28 MMOL/L (21-32); CHLORIDE 98 MMOL/L (98-107); CREATININE SERUM 0.77 MG/DL (0.60-1.30); GFR ESTIMATED > 60; GLUCOSE 98 MG/DL (70-105); MAGNESIUM 2.2 MG/DL (1.8-2.4); POTASSIUM 4.2 MMOL/L (3.6-5.0); SODIUM 135 MMOL/L (135-145); TOTAL PROTEIN 7.4 GM/DL (6.4-8.2)
[2017-07-30] MEDS ORDERED: NS IV 500 ML 500 ML IV ONE (19:24)
[2017-07-30 19:30] LABS: THYROID STIMULATING HORMONE 1.19 UIU/ML (0.35-4.94)
[2017-07-30] MEDS ORDERED: IOHEXOL 350 MG/ML 100 ML (OMNIPAQUE 350) VIAL IV ONE (20:00)
[2017-07-30] MEDS ORDERED: NS 100 ML (IVPB) BAG IV ONE (20:00)
--- NOTE | 2017-07-30 20:09 | Diagnostic Imaging Report ---
PROCEDURE: CT abdomen and pelvis with contrast. TECHNIQUE: Multiple contiguous axial images were obtained through the abdomen and pelvis after administration of intravenous contrast. INDICATION: Abdominal pain and nausea Comparison is made to study of 08/10/2016. No focal hepatic or splenic abnormality is identified. Pancreas and adrenal glands are unremarkable. There is malrotation of the right kidney. Kidneys otherwise unremarkable with bilateral contrast excretion. There is no evidence of free fluid in the abdomen or pelvis. No localized fluid collection is seen to indicate an abscess. There is mild fluid distention of small bowel loops. No obstructing lesion is identified. Gas and stool seen throughout the colon. There is mild to moderate aortoiliac atherosclerotic calcification. Partially opacified urinary bladder is unremarkable. Postoperative changes are noted in the proximal femora. IMPRESSION: No definite change compared to previous study. There is fluid distention of small bowel without obstructing lesion identified. Dictated by: Dictated on workstation # [id number]
[2017-07-30 20:55] VITALS: BP 140/72
--- OUTSIDE RECORDS SUMMARY | 2017-07-31 04:18 | XMS REPORT ---
Author Author WOLF AGUIRRE [facility] Address [address] [place] [address] Care Team Providers Care Personal Injury Paralegal Name Role Phone WOLF AGUIRRE Unavailable PROBLEMS Type Condition ICD9-CM Code [id number] Code Onset Dates Condition Status SNOMED Code Problem Other chronic pain G89.29 Active 37597981 Problem Essential hypertension I10 Active 52485540 Problem Atherosclerotic heart disease of [place] 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 Active 349211857222257 Problem Irritable bowel syndrome with diarrhea K58.0 Active 300061336 Problem Sundowning F05 Active 212119529 Problem Severe episode of recurrent major depressive disorder, without psychotic features F33.2 Active 83544362 Problem Constipation, unspecified constipation type K59.00 Active 52794037 Problem Vascular dementia with behavior disturbance F01.51 Active 216508515633609 Problem Insomnia, unspecified type G47.00 Active 624499087 Problem Reactive depression F32.9 Active 53843600 Problem Other chronic pain G89.29 Active 66218395 Problem Slow transit constipation K59.01 Active 86041443 Problem Hypertension I10 Active 33789344 Problem Dysthymic disorder F34.1 Active 07956196 Problem Generalized anxiety disorder F41.1 Active 19751121 Problem Encounter for dental examination Z01.20 Active 556166560 Problem Iron deficiency anemia secondary to inadequate dietary iron intake D50.8 Active 387829114 Problem Gastroesophageal reflux disease without esophagitis K21.9 Active 204879474 Problem Failure to thrive in adult R62.7 Active 472610541 Problem Coarse tremors G25.2 Active 48797190 Problem Poor appetite R63.0 Active 49367617 Problem Primary insomnia F51.01 Active 2056719 ALLERGIES Unknown Allergies SOCIAL HISTORY No smoking Hx information available PLAN OF CARE VITAL SIGNS MEDICATIONS Medication Instructions Dosage Frequency Start Date End Date Duration Status Melatonin 3 MG Orally Once a day 1 tablet at bedtime as needed with food 24h Nov, 30 days Active Pristiq 50 mg Orally Once a day 1 tablet 24h Nov, 30 days Active MiraLax - Orally 2 times a day 17grams mixed with 8oz of juice or tea 12h Nov, 30 days Active Lisinopril 5 MG Orally Once a day 1 tablet 24h Nov, 30 days Active Vitamin D-3 1000 UNIT Orally Once a day 2 capsules 24h Nov, 30 days Active Amitiza 8 MCG Orally Twice a day 1 capsule with food 12h Nov, 30 days Active Primidone 50 MG Orally Once a day 1 tablet 24h Nov, 30 days Active Mirtazapine 15 MG Orally Once a day 1 tablet at bedtime 24h Nov, 30 days Active Trazodone HCl 50 mg Orally Once a day 1 tablet at bedtime as needed 24h Nov, 30 days Active Remeron 15 MG Orally Once a day 1 tablet at bedtime 24h Sep, 30 day(s) Active Carafate 1 GM Orally 4 times a day (Before meals and bedtime) 1 tablet on an empty stomach Nov, 30 days Active RESULTS No Results PROCEDURES No Known procedures IMMUNIZATIONS No Known Immunizations
--- OUTSIDE RECORDS SUMMARY | 2017-07-31 04:18 | XMS REPORT ---
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 Name Role Phone WOLF AGUIRRE Unavailable PROBLEMS Type Condition ICD9-CM Code [id number] Code Onset Dates Condition Status SNOMED Code Problem Other chronic pain G89.29 Active 87829607 Problem Essential hypertension I10 Active 08170520 Problem Atherosclerotic heart disease of [place] 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 Active 841748267404201 Problem Irritable bowel syndrome with diarrhea K58.0 Active 447124396 Problem Sundowning F05 Active 494590227 Problem Severe episode of recurrent major depressive disorder, without psychotic features F33.2 Active 04364349 Problem Constipation, unspecified constipation type K59.00 Active 55737779 Problem Vascular dementia with behavior disturbance F01.51 Active 083366309788739 Problem Insomnia, unspecified type G47.00 Active 418476194 Problem Reactive depression F32.9 Active 66351785 Problem Other chronic pain G89.29 Active 00027777 Problem Slow transit constipation K59.01 Active 97407552 Problem Hypertension I10 Active 36936006 Problem Dysthymic disorder F34.1 Active 23316392 Problem Generalized anxiety disorder F41.1 Active 34354208 Problem Encounter for dental examination Z01.20 Active 612882218 Problem Iron deficiency anemia secondary to inadequate dietary iron intake D50.8 Active 854398412 Problem Gastroesophageal reflux disease without esophagitis K21.9 Active 937906240 Problem Failure to thrive in adult R62.7 Active 096035081 Problem Coarse tremors G25.2 Active 25402933 Problem Poor appetite R63.0 Active 09279328 Problem Primary insomnia F51.01 Active 9411619 ALLERGIES Unknown Allergies SOCIAL HISTORY No smoking Hx information available PLAN OF CARE VITAL SIGNS MEDICATIONS No Known Medications RESULTS No Results PROCEDURES No Known procedures IMMUNIZATIONS No Known Immunizations
--- OUTSIDE RECORDS SUMMARY | 2017-07-31 04:19 | XMS REPORT ---
Author Author WOLF AGUIRRE Organization [facility] Address [address] [place] [address] Care Team Providers Care Revenue Stamp Cutter Name Role Phone WOLF AGUIRRE Unavailable PROBLEMS Type Condition ICD9-CM Code [id number] Code Onset Dates Condition Status SNOMED Code Problem Other chronic pain G89.29 Active 98818976 Problem Essential hypertension I10 Active 79186990 Problem Atherosclerotic heart disease of [place] 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 Active 775019856344961 Problem Irritable bowel syndrome with diarrhea K58.0 Active 289845269 Problem Sundowning F05 Active 823218414 Problem Severe episode of recurrent major depressive disorder, without psychotic features F33.2 Active 97159061 Problem Constipation, unspecified constipation type K59.00 Active 36787797 Problem Vascular dementia with behavior disturbance F01.51 Active 800690182636372 Problem Insomnia, unspecified type G47.00 Active 003588730 Problem Reactive depression F32.9 Active 24344320 Problem Other chronic pain G89.29 Active 21465036 Problem Slow transit constipation K59.01 Active 27520674 Problem Hypertension I10 Active 43529098 Problem Dysthymic disorder F34.1 Active 36438842 Problem Generalized anxiety disorder F41.1 Active 01207817 Problem Encounter for dental examination Z01.20 Active 498164961 Problem Iron deficiency anemia secondary to inadequate dietary iron intake D50.8 Active 024266493 Problem Gastroesophageal reflux disease without esophagitis K21.9 Active 178266026 Problem Failure to thrive in adult R62.7 Active 645072722 Problem Coarse tremors G25.2 Active 17949499 Problem Poor appetite R63.0 Active 18864900 Problem Primary insomnia F51.01 Active 7076108 ALLERGIES Unknown Allergies SOCIAL HISTORY No smoking Hx information available PLAN OF CARE VITAL SIGNS MEDICATIONS No Known Medications RESULTS No Results PROCEDURES No Known procedures IMMUNIZATIONS No Known Immunizations
--- OUTSIDE RECORDS SUMMARY | 2017-07-31 04:20 | XMS REPORT ---
Author Author WOLF AGUIRRE Organization [facility] Address [address] [place] [address] Care Team Providers Care Scientific Database Curator Name Role Phone WOLF AGUIRRE Unavailable PROBLEMS Type Condition ICD9-CM Code [id number] Code Onset Dates Condition Status SNOMED Code Problem Other chronic pain G89.29 Active 79161453 Problem Essential hypertension I10 Active 49085100 Problem Atherosclerotic heart disease of [place] 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 Active 491511094861225 Problem Irritable bowel syndrome with diarrhea K58.0 Active 264504904 Problem Sundowning F05 Active 564917043 Problem Severe episode of recurrent major depressive disorder, without psychotic features F33.2 Active 63022994 Problem Constipation, unspecified constipation type K59.00 Active 20231582 Problem Vascular dementia with behavior disturbance F01.51 Active 401619438931182 Problem Insomnia, unspecified type G47.00 Active 165402126 Problem Reactive depression F32.9 Active 54959520 Problem Other chronic pain G89.29 Active 21671765 Problem Slow transit constipation K59.01 Active 54213542 Problem Hypertension I10 Active 97242694 Problem Dysthymic disorder F34.1 Active 98239045 Problem Generalized anxiety disorder F41.1 Active 03864917 Problem Encounter for dental examination Z01.20 Active 123383029 Problem Iron deficiency anemia secondary to inadequate dietary iron intake D50.8 Active 236631200 Problem Gastroesophageal reflux disease without esophagitis K21.9 Active 638763341 Problem Failure to thrive in adult R62.7 Active 045811140 Problem Coarse tremors G25.2 Active 08813299 Problem Poor appetite R63.0 Active 97401499 Problem Primary insomnia F51.01 Active 1331031 ALLERGIES Unknown Allergies SOCIAL HISTORY No smoking Hx information available PLAN OF CARE VITAL SIGNS MEDICATIONS No Known Medications RESULTS No Results PROCEDURES No Known procedures IMMUNIZATIONS No Known Immunizations
[2017-09-17] MEDS ORDERED: RIVA1PAT TD (12:44)
[2017-09-17] MEDS ORDERED: NAPR500T PO (12:44)
[2017-09-17] MEDS ORDERED: CITA10TA7 PO (12:44)
[2017-09-17] MEDS ORDERED: CLON0.5T PO (12:44)
[2017-09-17] MEDS ORDERED: POLY17PO6 PO (12:44)
[2017-09-17] MEDS ORDERED: L.AC1CAP6 PO (12:44)
[2017-09-17] MEDS ORDERED: OLAN2.5T27 PO (12:44)
[2017-09-18] MEDS ORDERED: SUCR1TAB36 PO (14:08)
[2017-09-18] MEDS ORDERED: PANT40TA2 PO (14:08)
== END 2017-07-30 20:55 | disposition home or self-care (01) ==
LOC: EDUNIT# 17:14 → ER 17:15
DX: R10.84 Generalized abdominal pain (principal); I25.10 Atherosclerotic heart disease of native coronary artery without angina pectoris; I10 Essential (primary) hypertension; E78.00 Pure hypercholesterolemia, unspecified; K21.9 Gastro-esophageal reflux disease without esophagitis; M19.90 Unspecified osteoarthritis, unspecified site; F41.9 Anxiety disorder, unspecified; F32.9 Major depressive disorder, single episode, unspecified; Z82.49 Family history of ischemic heart disease and other diseases of the circulatory system; Z79.01 Long term (current) use of anticoagulants; Z87.440 Personal history of urinary (tract) infections; Z87.448 Personal history of other diseases of urinary system; Z79.82 Long term (current) use of aspirin; Z96.641 Presence of right artificial hip joint; Z95.1 Presence of aortocoronary bypass graft
CPT/HCPCS: 36415; 74177; 80053; 81000; 83735; 84443; 85025

== ENCOUNTER 2017-09-16 05:57 | Outpatient (CLI) | payer MEDICARE, MEDICAID ==
[~2017-09-16] VITALS: Ht 165.1 cm; Wt 58.5 kg
[~2017-09-16 05:57] MED LIST changes: +METO-270 PO; -METO-387 PO
[2017-09-17] MEDS ORDERED: CITA10TA7 PO (12:44)
[2017-09-17] MEDS ORDERED: OLAN2.5T27 PO (12:44)
[2017-09-17] MEDS ORDERED: L.AC1CAP6 PO (12:44)
[2017-09-17] MEDS ORDERED: POLY17PO6 PO (12:44)
[2017-09-17] MEDS ORDERED: NAPR500T PO (12:44)
[2017-09-17] MEDS ORDERED: RIVA1PAT TD (12:44)
[2017-09-17] MEDS ORDERED: CLON0.5T PO (12:44)
== END 2017-09-16 15:00 ==
LOC: PREOP 05:57
PROVIDERS: ATTEND Surgery
DX: Z01.818 Encounter for other preprocedural examination (principal); R10.9 Unspecified abdominal pain

== ENCOUNTER 2017-09-18 11:13 | Day surgery (SDC) | payer MEDICARE, MEDICAID ==
[~2017-09-18] VITALS: Ht 165.1 cm; Wt 58.5 kg
[~2017-09-18 11:13] MED LIST changes: +CITA10TA7 PO; +CLON0.5T PO; +L.AC1CAP6 PO; +NAPR500T PO; +OLAN2.5T27 PO; +POLY17PO6 PO; +RIVA1PAT TD
--- OUTSIDE RECORDS SUMMARY | 2017-09-18 11:21 | XMS REPORT ---
Author Author WOLF AGUIRRE [facility] Address [address] [place] [address] Care Team Providers Care Gun Stock Checker Name Role Phone WOLF AGUIRRE Unavailable PROBLEMS Type Condition ICD9-CM Code [id number] Code Onset Dates Condition Status SNOMED Code Problem Coarse tremors G25.2 Active 19897077 Problem Gastroesophageal reflux disease without esophagitis K21.9 Active 970219174 Problem Reactive depression F32.9 Active 77358387 Problem Irritable bowel syndrome with diarrhea K58.0 Active 785221041 Problem Vascular dementia with behavior disturbance F01.51 Active 118465344671480 Problem Severe episode of recurrent major depressive disorder, without psychotic features F33.2 Active 01197350 Problem Constipation, unspecified constipation type K59.00 Active 10855666 Problem Sundowning F05 Active 457156214 Problem Insomnia, unspecified type G47.00 Active 667256346 Problem Essential hypertension I10 Active 28653207 Problem Slow transit constipation K59.01 Active 93403153 Problem Other chronic pain G89.29 Active 77934514 Problem Hypertension I10 Active 07778776 Problem Dysthymic disorder F34.1 Active 38066090 Problem Generalized anxiety disorder F41.1 Active 31284998 Problem Encounter for dental examination Z01.20 Active 352535808 Problem Atherosclerotic heart disease of [place] 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 Active 966905714762470 Problem Other chronic pain G89.29 Active 10948755 Problem Failure to thrive in adult R62.7 Active 724930991 Problem Primary insomnia F51.01 Active 3316790 Problem Poor appetite R63.0 Active 07267509 Problem Iron deficiency anemia secondary to inadequate dietary iron intake D50.8 Active 779999220 ALLERGIES Substance Reaction Event Type Date Status Morphine Sulfate Unknown Drug Allergy Dec, Active Clindamycin HCl Unknown Drug Allergy Dec, Active SOCIAL HISTORY No smoking Hx information available PLAN OF CARE Activity Details Follow Up 3 Months Reason:depression VITAL SIGNS Height 64 in 2016-12-12 Weight 117 lbs 2016-12-12 Temperature 98.2 degrees Fahrenheit 2016-12-12 Heart Rate 88 bpm 2016-12-12 Respiratory Rate 16 2016-12-12 BMI 20.08 kg/m2 2016-12-12 Blood pressure systolic 120 mmHg 2016-12-12 Blood pressure diastolic 70 mmHg 2016-12-12 MEDICATIONS Medication Instructions Dosage Frequency Start Date End Date Duration Status Lisinopril 5 MG Orally Once a day 1 tablet 24h Nov, 30 days Active Ibuprofen 200 mg Orally every 6 hrs 2 tablet as needed 6h Nov, Active Aspir-81 81 MG Orally Once a day 1 tablet 24h Nov, Active Carafate 1 GM Orally 4 times a day (Before meals and bedtime) 1 tablet on an empty stomach Nov, 30 days Active Cranberry Extract 250 MG Orally Once a day as directed 24h Nov, Active Primidone 50 MG Orally Once a day 1 tablet 24h Nov, 30 days Active MiraLax - Orally 2 times a day 17grams mixed with 8oz of juice or tea 12h Nov, 30 days Active Acetaminophen 500 MG Orally every 6 hrs 1 tablets as needed 6h Nov, Active Melatonin 3 MG Orally Once a day 1 tablet at bedtime as needed with food Nov, 30 days Active Vitamin D-3 1000 UNIT Orally Once a day 2 capsules Nov, 30 days Active RESULTS No Results PROCEDURES Procedure Date Ordered Related Diagnosis Body Site [facility] VISIT ESTABLISHED PATIENT Dec 12, 2016 Office Visit, Est Pt., Level 3 Dec 12, 2016 IMMUNIZATIONS No Known Immunizations
[2017-09-18] MEDS ORDERED: NS IV 500 ML 500 ML IV PRN (11:30)
[2017-09-18 11:45] VITALS: BP 110/71
[2017-09-18] MEDS ORDERED: NS IV 500 ML 500 ML ONE (11:55)
--- NOTE | 2017-09-18 12:02 | Conscious Sedation/ASA ---
Conscious Sedation Pre-Proced Time Reviewed: 12:00 ASA Class: 3 Airway Mallampati Classification: ([place] appropriate class) I. II. III, IV Lungs Heart ASA score ASA 1: a normal healthy patient ASA 2: a patient with a mild systemic disease (mid diabetes, controlled hypertension, obesity ASA 3: a patient with a severe systemic disease that limits activity (angina , COPD, prior Myocardial infarction) ASA 4: a patient with an incapacitating disease that is a constant threat to life (CHF, renal failure) ASA 5: a moribund patient not expected to survive 24 hrs. (ruptured aneurysm) ASA 6: a declared brain patient whose organs are being harvested. For emergent operations, add the letter E after the classification Grade 3 Sedation Plan: Analgesia, Amnesia, Plan communicated to team members, Discussed options with patient/fam, Discussed risks with patient/fam Note The patient is an appropriate candidate to undergo the planned procedure, sedation, and anesthesia. The patient immediately re-assessed prior to indication. SHANDA SAINI MD Sep 18, 2017 12:02 pm
--- NOTE | 2017-09-18 12:03 | Progress Note-Pre Operative ---
Pre-Operative Progress Note H&P Reviewed The H&P was reviewed, patient examined and no changes noted. Date Seen by Provider: Sep 18, 2017 Time Seen by Provider: 12:00 Date H&P Reviewed: Sep 18, 2017 Time H&P Reviewed: 12:00 Pre-Operative Diagnosis: PUD, abdominal pain SHANDA SAINI MD Sep 18, 2017 12:03 pm
[2017-09-18] MEDS ORDERED: ACETAMINOPHEN 325 MG TABLET/CAPLET (TYLENOL) PO PRN (12:15)
[2017-09-18] MEDS ORDERED: HYDROcodone/APAP 5 MG/325 MG (LORTAB) TAB PO PRN (12:15)
[2017-09-18] MEDS ORDERED: ONDANSETRON 4 MG/2 ML (SDV) Z0FRAN IV PRN (12:15)
[2017-09-18] MEDS ORDERED: HURRICAINE EXT TUBE (BENZOCAINE) XX PRN (12:30)
[2017-09-18] MEDS ORDERED: LIDOCAINE JELLY 2% (XYLOCAINE) 5 ML TUBE MM PRN (12:30)
[2017-09-18] MEDS ORDERED: HURRICAINE EXT TUBE (BENZOCAINE) ONE (12:35)
[2017-09-18] MEDS ORDERED: LIDOCAINE JELLY 2% (XYLOCAINE) 5 ML TUBE ONE (12:35)
[2017-09-18] MEDS ORDERED: MIDAZOLAM 2 MG/2 ML (VERSED) VIAL ONE ×3 (12:35→13:29)
[2017-09-18] MEDS ORDERED: fentaNYL INJECTION 100 MCG/2 ML AMP ONE (12:35)
[2017-09-18] MEDS: fentaNYL INJECTION 100 MCG/2 ML AMP IVP PRN ×2 (13:10→13:40)
[2017-09-18] MEDS: MIDAZOLAM 10 MG/2 ML (VERSED) VIAL IVP PRN ×3 (13:12→13:38)
[2017-09-18 14:05] VITALS: BP 138/64
--- NOTE | 2017-09-18 14:06 | Progress Note-Post Operative ---
Post-Operative Progess Note Surgeon (s)/Hired Help (s) Surgeon SHANDA SAINI MD Hired Help: none Pre-Operative Diagnosis PUD, abdominal pain Post-Operative Diagnosis reflux esophagitis(class B), HH(2.5cm), severe gastritis. chronic stage 2 ext and int hemorrhoids. Procedure & Operative Findings Date of Procedure 09/18/17 Procedure Performed/Findings EGD with bx. Colonoscopy. Anesthesia Type CS Estimated Blood Loss Estimated blood loss (mL): minimal Specimens/Packing Specimens Removed antral ulcer, GE jxn SHANDA SAINI MD Sep 18, 2017 2:06 pm
[2017-09-18] MEDS ORDERED: SUCR1TAB36 PO (14:08)
[2017-09-18] MEDS ORDERED: PANT40TA2 PO (14:08)
--- NOTE | 2017-09-18 14:09 | Discharge Inst-Surgical ---
D/C Lap Instructions-KIDO New, Converted, or Re-Newed RX: RX on Chart Follow up 6weeks. Activity as tolerated High Fiber Diet 25g or more per day Avoid Alcohol, Caffeine, Spicy [place] and Acid foods. Drink 64 fluid oz or more of fluids per day. Symptoms to Report: Fever over 101 degree F, Nausea/Vomiting If any problems/questions: Contact your physician or go to Emergency Room SHANDA SAINI MD Sep 18, 2017 2:09 pm
[2017-09-18 14:30] VITALS: BP 140/66
[2017-09-18 14:47] VITALS: BP 140/66
--- NOTE | 2017-09-19 04:37 | OPERATIVE REPORT ---
DATE OF SERVICE: 09/18/2017 ATTENDING PRIMARY PEDIATRIC ALLERGIST: Kassandra Ma APRN. PREOPERATIVE DIAGNOSES: Peptic ulcer disease, anorexia, weight loss, abdominal pain. POSTOPERATIVE DIAGNOSES: Reflux esophagitis class B, moderate-sized hiatal hernia approximately 2.5 cm in size, severe gastritis with multiple small ulcerations, all less than 2 mm in size. Pylorus and duodenum appeared normal with no distal obstructions. Chronic stage II external and internal hemorrhoids. The remainder of the colon was normal with no obstructions. PROCEDURE: EGD with biopsy, colonoscopy. SURGEON: Shanda Saini MD. ANESTHESIA: Conscious sedation. ESTIMATED BLOOD LOSS: Minimal. FINDINGS: EGD, reflux esophagitis class B. No ulcers or strictures. Moderate-sized hiatal hernia approximately 2.5 cm in size. Severe gastritis more towards the stomach antrum with multiple small ulcers all less than 2 mm in size. Colonoscopy, chronic stage II external and internal hemorrhoids, not actively edematous nor inflamed and no bleeding. The remainder of the rectum and colon were normal. There were no polyps or any neoplasms identified as well as no obstructive lesions. DISPOSITION: The patient tolerated the procedure well. INDICATIONS FOR PROCEDURE: The patient is a 77-year-old female who has had nonspecific abdominal symptoms for some amount of time. She is a poor historian, does have a history of dementia and is a resident of [facility]. She was accompanied by her daughter in the office who is unsure of her symptoms as well. The patient had reported some issue with the potential bowel blockage; however, her signs and symptoms did not relate to this at all. She has had a longstanding history of constipation and has taken laxatives and then would have copious amounts of diarrhea. She does report abdominal distention and anorexia with very small amounts of food. She does have a history of peptic ulcer disease as well as gastroesophageal reflux disease. She also reports that she has had crampy lower abdominal pain for a significant amount of time; however, this most likely is secondary to chronic constipation. She did have a colonoscopy approximately 5 years ago; however, does not recall any reports from this. DESCRIPTION OF PROCEDURE: The patient was brought to the endoscopy suite, laid in the left lateral decubitus position. After adequate IV pain and sedative medications and conscious sedation anesthesia, the mouthpiece was applied. The endoscope was placed in the mouth, visualizing the pharynx and hypopharyngeal region. Vocal cords, epiglottis, and vallecula identified and appeared to be normal. The endoscope was then gently intubated at the esophageal opening and esophagus insufflated. The endoscope was then advanced through the first, second and third portions of the esophagus to the level of the GE junction. A reflux esophagitis class B identified. There were no ulcers or strictures identified in this region. A biopsy was taken using forceps with visualization of good hemostasis. The endoscope was then easily advanced into the stomach and then endoscope retroflexed, visualizing a moderate-sized hiatal hernia, approximately 2.5 cm in size. There was a severe gastritis more towards the stomach antrum with multiple small ulcerations, all smaller than 2 mm in size. Biopsy was taken with forceps with visualization of good hemostasis. The endoscope was then advanced through the pylorus into the first and second portions of the duodenum, which appeared normal with no distal obstructions. The endoscope was then slowly withdrawn taking a second look and suctioning of residual air with no additional findings. The patient tolerated this portion of the procedure well. We will start her on Protonix 40 mg daily as well as Carafate 1 gram q.i.d. for the next 2 weeks and then on a p.r.n. basis. She also needs to proceed with the necessary lifestyle and diet accommodation including small and more frequent meals, avoidance of eating at night as well as head elevation while lying supine. She also needs to avoid caffeinated beverages, spicy, greasy and acidic foods. Under the same conscious sedation anesthesia, we then proceeded with the colonoscopy portion of the procedure. A digital rectal examination was performed, which revealed chronic stage II external and internal hemorrhoids, not actively edematous nor inflamed and no bleeding. Normal sphincter tone was felt and there were no palpable masses. The endoscope was then intubated to the anus and the rectum gently insufflated. The endoscope was then advanced through the valves of Beck in the rectum with no polyps or any neoplasm identified. We then proceeded to the sigmoid colon where no diverticulosis identified. The endoscope was then advanced to the remainder of the descending, transverse, and ascending colon to the cecum. These segments were normal. There was no obstructive type of lesions throughout the colon or rectum. The endoscope was then slowly withdrawn taking a second look and suctioning of residual air with no additional findings. The patient tolerated the procedure well. We feel that the majority of her symptoms are most likely related to chronic constipation due to her bedridden state and poor diet. We will recommend a high-fiber diet with at least 30 grams of fiber per day as well as at least 64 fluid ounces of water daily to promote soft stools on a daily basis. Job ID: [id number] DocumentID: [id number] Dictated Date: 09/18/2017 14:09:52 Master Baker Date: 09/19/2017 00:26:01 Dictated By: SHANDA SAINI MD
== END 2017-09-18 14:45 | disposition home or self-care (01) ==
LOC: ENDO 11:13
PROVIDERS: ATTEND Surgery
DX: K21.0 Gastro-esophageal reflux disease with esophagitis (principal); K44.9 Diaphragmatic hernia without obstruction or gangrene; K29.70 Gastritis, unspecified, without bleeding; K25.9 Gastric ulcer, unspecified as acute or chronic, without hemorrhage or perforation; K64.1 Second degree hemorrhoids; F03.90 Unspecified dementia, unspecified severity, without behavioral disturbance, psychotic disturbance, mood disturbance, and anxiety; K59.00 Constipation, unspecified; I25.10 Atherosclerotic heart disease of native coronary artery without angina pectoris; Z95.1 Presence of aortocoronary bypass graft; Z96.643 Presence of artificial hip joint, bilateral; Z79.82 Long term (current) use of aspirin; Z79.899 Other long term (current) drug therapy

== ENCOUNTER 2018-08-20 12:28 | Emergency (ER) | payer MEDICARE, MEDICAID ==
[~2018-08-20] VITALS: Ht 167.6 cm; Wt 54.4 kg
[~2018-08-20 12:28] MED LIST changes: +ACHD5005 PO; +CLON0.5T13 PO; -HYDR-3812 PO; -METO-270 PO; +METO-387 PO; +NAPR-1071 PO; -NAPR500T PO; +PANT40TA2 PO
--- OUTSIDE RECORDS SUMMARY | 2018-08-20 12:33 | XMS REPORT ---
Author Author WOLF AGUIRRE [facility] Address [address] [place] [address] Care Team Providers Care Sole Layer Hand Name Role Phone WOLF AGUIRRE Unavailable PROBLEMS Type Condition ICD9-CM Code [id number] Code Onset Dates Condition Status SNOMED Code Problem Coarse tremors G25.2 Active 15332372 Problem Gastroesophageal reflux disease without esophagitis K21.9 Active 848909870 Problem Reactive depression F32.9 Active 63014730 Problem Irritable bowel syndrome with diarrhea K58.0 Active 449309546 Problem Vascular dementia with behavior disturbance F01.51 Active 550265172642100 Problem Severe episode of recurrent major depressive disorder, without psychotic features F33.2 Active 25506937 Problem Constipation, unspecified constipation type K59.00 Active 23414377 Problem Sundowning F05 Active 939635738 Problem Insomnia, unspecified type G47.00 Active 841871690 Problem Essential hypertension I10 Active 23798345 Problem Slow transit constipation K59.01 Active 73891975 Problem Other chronic pain G89.29 Active 31863921 Problem Hypertension I10 Active 66337178 Problem Dysthymic disorder F34.1 Active 93308950 Problem Generalized anxiety disorder F41.1 Active 29329667 Problem Encounter for dental examination Z01.20 Active 880214078 Problem Atherosclerotic heart disease of [place] 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 Active 742947141094873 Problem Other chronic pain G89.29 Active 35210604 Problem Failure to thrive in adult R62.7 Active 812112460 Problem Primary insomnia F51.01 Active 5906569 Problem Poor appetite R63.0 Active 38954603 Problem Iron deficiency anemia secondary to inadequate dietary iron intake D50.8 Active 679138937 ALLERGIES No Information SOCIAL HISTORY Never Assessed PLAN OF CARE VITAL SIGNS MEDICATIONS Unknown Medications RESULTS No Results PROCEDURES No Known procedures IMMUNIZATIONS No Known Immunizations MEDICAL (GENERAL) HISTORY Type Description Date Medical History Hypertension Medical History Heart disease CABG X3 Stress test 07/2015 Medical History Gastric ulcer Medical History Hyperlipidemia Medical History Headache syndrome Medical History Psychiatric disorders-depression/racing thoughts Medical History Depression Medical History At Fib 04/2016 Started on Eliquis Medical History Anemia 04/2016 postsurgical hip fx Surgical History right hip replacement w/ Dr. Bruce 2011 Surgical History triple bypass surgery 2003 Surgical History S/P left hip IM Nail (Intertrechanteric hip fx) 04/28/16 Hospitalization History surgeries Hospitalization History Hypertension Hospitalization History ER for a concussion 11/24/15 Hospitalization History Intertrechanteric hip fx 04/27/16 Hospitalization History [facility] oct 2016 Hospitalization History [facility] 2016
--- OUTSIDE RECORDS SUMMARY | 2018-08-20 12:34 | XMS REPORT ---
Author Author WOLF AGUIRRE [facility] Address [address] [place] [address] Care Team Providers Care Master Certified Rv Technician Name Role Phone WOLF AGUIRRE Unavailable PROBLEMS Type Condition ICD9-CM Code XFW92-LC Code Onset Dates Condition Status SNOMED Code Problem Sundowning F05 Active 014249303 Problem Constipation, unspecified constipation type K59.00 Active 16769310 Problem Reactive depression F32.9 Active 84833751 Problem Vascular dementia with behavior disturbance F01.51 Active 113923058509854 Problem Insomnia, unspecified type G47.00 Active 684529045 Problem Generalized anxiety disorder F41.1 Active 04591241 Problem Other chronic pain G89.29 Active 93370359 Problem Severe episode of recurrent major depressive disorder, without psychotic features F33.2 Active 75367686 Problem Slow transit constipation K59.01 Active 08981993 Problem 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 Active 560714671 Problem Obsessive thinking F42.8 Active 07692337 Problem Failure to thrive in adult R62.7 Active 765386221 Problem Dysthymic disorder F34.1 Active 74492835 Problem Hypertension I10 Active 60307009 Problem Mood disorder F39 Active 44738488 Problem Irritable bowel syndrome with diarrhea K58.0 Active 690596260 Problem Oropharyngeal dysphagia R13.12 Active 53330082 Problem 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 Active 83949177 Problem Other chronic pain G89.29 Active 32396513 Problem Primary insomnia F51.01 Active 9645070 Problem Poor appetite R63.0 Active 51819437 Problem Atherosclerotic heart disease of [place] 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 Active 505589911405950 Problem Iron deficiency anemia secondary to inadequate dietary iron intake D50.8 Active 946769717 Problem Coarse tremors G25.2 Active 49901454 Problem Gastroesophageal reflux disease without esophagitis K21.9 Active 231010608 Problem Essential hypertension I10 Active 48252569 ALLERGIES No Information ENCOUNTERS Encounter Location Date Diagnosis [facility] [address] [id number] May, [facility] [id number] [place] [address] 60990- 4222 May, [facility] [id number] [place] [address] 47231- 6111 April, [facility] [address] [place] [id number] April, Generalized anxiety disorder F41.1 ; Obsessive thinking F42.8 and Insomnia , unspecified type G47.00 [facility] [id number] [place] [address] 96548- 4036 April, [facility] [id number] [place] [address] 72982- 5289 April, Rash of face R21 [facility] [id number] [place] [address] 38476- 4480 Mar, [facility] [id number] [place] [address] 14104- 0828 Mar, [facility] [id number] [place] [address] 28963- 6158 Mar, [facility] [id number] [place] [address] 59826- 2441 Jan, [facility] [id number] [place] [address] 52181- 8046 Jan, [facility] [address] [place] [id number] Jan, Constipation, unspecified constipation type K59.00 and Other chronic pain G89.29 [facility] [id number] [place] [address] 68549- 9300 Jan, [facility] [address] [place] [id number] Jan, Obsessive thinking F42.8 and Coarse tremors G25.2 [facility] [id number] [place] [id number] Jan, [facility] [id number] [place] [id number] Jan, [address] [id number] Jan, Generalized anxiety disorder F41.1 ; Obsessive thinking F42.8 ; Callus of foot L84 and 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 [facility] [id number] [place] [address] 08816- 1451 Dec, Generalized anxiety disorder F41.1 and Severe episode of recurrent major depressive disorder, without psychotic features F33.2 [facility] [id number] [place] [address] 93039- 8906 Nov, [facility] [id number] [place] [address] 61572- 8667 Nov, [address] [id number] Nov, Oropharyngeal dysphagia R13.12 ; Generalized anxiety disorder F41.1 and 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 [facility] [id number] [place] [address] 31758- 0341 Nov, [facility] [id number] [place] [address] [id number] Nov, [facility] [id number] [place] [address] 50062- 5506 Nov, [facility] [address] [place] [address] 55353- 2541 Nov, [facility] [id number] [place] [address] 58209- 5976 Oct, Constipation, unspecified constipation type K59.00 and Mood disorder F39 [facility] [address] [place] [address] 82879- 7203 Oct, [facility] [id number] [place] [id number] Sep, [facility] [id number] [place] [id number] Sep, [facility] [id number] [place] [address] Sep, [facility] [id number] [place] [id number] Sep, [facility] [address] [id number] Sep, Generalized abdominal pain R10.84 [facility] [id number] [address] 2546 Sep, [facility] [id number] [place] [address] Sep, Generalized anxiety disorder F41.1 and Primary insomnia F51.01 [facility] [id number] [place] [id number] Aug, [facility] [id number] [place] [address] Aug, Generalized anxiety disorder F41.1 [facility] [address] [place] [address] Jul, [facility] [address] [id number] Jul, Obsessive thinking F42.8 [facility] [address] [place] [address] Jul, Generalized anxiety disorder F41.1 and Irritable bowel syndrome with diarrhea K58.0 [facility] [id number] [place] [id number] Jul, Generalized anxiety disorder F41.1 [facility] [id number] [place] [id number] Jun, Generalized anxiety disorder F41.1 [facility] [id number] [address] May, [facility] [address] [id number] May, Generalized anxiety disorder F41.1 ; Irritable bowel syndrome with diarrhea K58.0 and Coarse tremors G25.2 [facility] [address] [address] April, [facility] [id number] [place] [address] 75230- 5719 April, [facility] [id number] [place] [address] 20716- 0544 April, [facility] [id number] [place] [address] 07273- 7961 Mar, [facility] [address] [id number] Mar, Severe episode of recurrent major depressive disorder, without psychotic features F33.2 and Pain in left hip M25.552 [facility] [id number] [place] [address] 21356- 8973 Mar, [facility] [id number] [place] [address] 64879- 4275 Mar, [facility] [id number] [place] [address] 21241- 8259 Mar, [facility] [address] [address] 0690 Mar, Pain in right hip M25.551 and Self-care deficit in patient living alone R46.89 [facility] [address] [address] Jan, Other chronic pain G89.29 ; Pain in left hip M25.552 and Slow transit constipation K59.01 [facility] [address] [address]- 7547 Jan, [facility] [id number] [place] [address] 98407- 2491 Dec, Other depression F32.89 ; Constipation, unspecified constipation type K59.00 and Insomnia, unspecified type G47.00 [facility] [address] [place] [address] 63552- 8516 Nov, Reactive depression F32.9 ; Chronic idiopathic constipation K59.04 ; Generalized anxiety disorder F41.1 ; Coarse tremors G25.2 ; Gastroesophageal reflux disease without esophagitis K21.9 ; Dysthymic disorder F34.1 ; Vitamin deficiency, unspecified E56.9 and Primary insomnia F51.01 [facility] [address] [place] [address] 71770- 9599 Nov, [facility] [address] 20513- 7804 Nov, [facility] [id number] [place] [address] 19164- 2678 Nov, [facility] [address] [place] [address] 68968- 4897 Nov, Reactive depression F32.9 ; Essential hypertension I10 ; Generalized anxiety disorder F41.1 ; Atherosclerotic heart disease of [place] 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 ; Pain in right hip M25.551 ; Other chronic pain G89.29 ; Chronic idiopathic constipation K59.04 ; Primary insomnia F51.01 ; Coarse tremors G25.2 ; Gastroesophageal reflux disease without esophagitis K21.9 ; Iron deficiency anemia secondary to inadequate dietary iron intake D50.8 and Vitamin deficiency, unspecified E56.9 [facility] [address] [place] [address] 98650- 7896 Oct, [facility] [id number] [place] [address] 07855- 9158 Oct, [facility] [id number] [place] [address] 65284- 8233 Oct, [facility] [id number] [place] [address] 81321- 8737 Oct, Generalized anxiety disorder F41.1 ; Poor appetite R63.0 ; Dehydration E86.0 and Failure to thrive in adult R62.7 [facility] [id number] [place] [address] 12890- 2420 Oct, Generalized anxiety disorder F41.1 and Failure to thrive in adult R62.7 [facility] [id number] [place] [address] 51339- 0618 Oct, [facility] [address] 41980- 3436 Oct, [facility] [address] 19019 -4574 Sep, Vaginal discharge N89.8 and Acute cystitis with hematuria N30.01 [facility] [id number] [place] [address] 40450- 4200 Sep, [facility] [address] 31704- 7463 Sep, [facility] [id number] [place] [address] 46516- 6206 Sep, Dysthymic disorder F34.1 ; Acute vaginitis N76.0 ; Dysuria R30.0 and Vaginal yeast infection B37.3 [facility] [id number] [place] [address] 89266- 6706 Aug, [facility] [id number] [place] [address] 94225- 4721 Aug, [facility] [id number] [place] [address] 54299 -2494 Aug, Foul smelling urine R82.90 ; Rapid heart rate R00.0 and Flatulence R14.3 [facility] [id number] [place] [address] 75198- 2336 Aug, [facility] [id number] [place] [address] 39229- 7718 Jul, Constipation, unspecified constipation type K59.00 ; Weak R53.1 ; Poor appetite R63.0 ; Coronary artery disease involving [place] heart without angina pectoris, unspecified vessel or lesion type I25.10 ; Fatigue, unspecified type R53.83 ; Urinary incontinence, unspecified type R32 and Insomnia, unspecified type G47.00 [facility] [facility] [address] 06079- 6886 Jul, [facility] [address] 00394- 5192 Jun, Dysuria R30.0 [facility] [address] 64024- 4621 Jun, [facility] [address] 97025- 6329 Jun, Urinary tract infection, site not specified N39.0 ; Acute vaginitis N76.0 and Diarrhea, unspecified type R19.7 [facility] [facility] [address] 20449- 0027 May, [place] [facility] [address] 06910- 0751 April, [facility] [address] [id number] April, Encounter for dental examination Z01.20 [facility] [facility] [address] 71424- 6473 April, [facility] [facility] [address] 26483- 1567 April, Tremor R25.1 and Episodic tension-type headache, not intractable G44.219 [facility] [facility] [address] 90389- 8493 Mar, [place] [facility] [address] 70196- 3563 Jan, Mood disorder F39 [facility] [address] [address] Jan, [facility] [address] [place] [address] 43315- 7596 Jan, [facility] [address] [address]- 5759 Jan, [facility] [id number] [place] [address] 05942- 8150 Jan, [facility] [address] [place] [address] 58631- 0062 Jan, [facility] [id number] [place] [address] 40063- 1082 Jan, [facility] [id number] [place] [address] 04843 -0652 Dec, Acute diarrhea R19.7 [facility] [address] [place] [address] 22362- 5944 Dec, [facility] [address] [place] [address] 45294- 5379 Dec, [facility] [address] [place] [address] 22739- 4303 Dec, [facility] [address] [place] [address] 74029 -3511 Dec, N&V (nausea and vomiting) R11.2 [facility] [address] [address]- 1266 Dec, Generalized anxiety disorder F41.1 [facility] [address] [place] [address] 17602- 3753 Dec, Generalized anxiety disorder F41.1 [facility] [address] [address]- 0663 Nov, Post concussion syndrome F07.81 [facility] [id number] [place] [address] [id number]- 1145 Nov, Generalized anxiety disorder F41.1 [facility] [id number] [place] [address] 88129- 2067 Nov, [facility] [address] [place] [address] 591610- 8959 Nov, Generalized anxiety disorder F41.1 [facility] [id number] [place] [address] [id number] Oct, Dental caries K02.9 [facility] [address] 65537- 8550 Oct, [facility] [address] [id number] Oct, Dental examination Z01.20 [facility] [address] [id number] Oct, Encounter for dental examination Z01.20 [facility] [address] [place] [address] 45928- 8058 Oct, CAD (coronary artery disease) I25.10 [facility] [address] [place] [address] 42867- 1647 Sep, Generalized anxiety disorder F41.1 [facility] [address] [place] [address] 69700- 5365 Sep, [facility] [address] [place] [address] 81626- 9089 Sep, Rash and other nonspecific skin eruption R21 and Yeast vaginitis B37.3 [facility] [address] [place] [address] 20421- 7268 Sep, Generalized anxiety disorder F41.1 [facility] [address] [place] [address] 68786- 8384 17 Aug, 2015 Insect bites 919.4 and Hemorrhoids 455.6 [facility] [address] [place] [address]- 4179 Aug, Generalized anxiety disorder 300.02 [facility] [address] [place] [address] 77662- 6627 08 Aug, 2015 [facility] [address] [place] [address] 41013- 6897 Aug, [facility] [address] [place] [address] 70122- 3376 Aug, Generalized anxiety disorder 300.02 ; No condition on Hunter II V71.09 ; Heart problem 429.9 and Hypertension 401.9 [facility] [address] [place] [address] 12853- 3985 Aug, [facility] [address] [place] [address] 07210- 8334 Jul, [facility] [address] [place] [address] 43431- 1845 Jul, [facility] [address] [place] [address] 41629- 1206 Jul, [facility] [address] [place] [address] 41048- 4442 Jul, [facility] [address] [place] [address] 22544- 0125 Jul, Rash 782.1 [facility] [address] [place] [address] 34223- 5475 Jul, UTI (urinary tract infection) 599.0 [facility] [address] [place] [address] 10706- 0288 Jul, [facility] [address] [place] [address] 61985- 4683 Jun, Dysthymia 300.4 and Anxiety 300.00 [facility] [address] [place] [address] 34513- 3245 Jun, 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 [facility] [address] [id number] [place] [address]- 7033 May, [facility] [address] [id number] [place] [address]- 1456 May, [facility] [address] [facility] [id number] [place] [address]- 9246 May, Unspecified breast screening V76.10 [facility] [address] [id number] [place] [id number] May, Dental examination V72.2 [facility] [address] [id number] [place] [address]- 9346 April, [facility] [address] [id number] [place] [address]- 3176 April, [facility] [address] [place] [id number] April, Dental examination V72.2 [facility] [address] [id number] [place] [id number] April, Dental examination V72.2 [facility] [address] [id number] [place] [address]- 3890 Mar, [facility] [address] [facility] [id number] [place] [address]- 2685 Mar, [facility] [address] [id number] [place] [address]- 2276 Jan, [facility] [address] [id number] [place] [address]- 6056 Jan, [facility] [address] [facility] [id number] [place] [address]- 0406 Jan, [facility] [address] [facility] [id number] [place] 6036 Jan, [facility] [address] [id number] [place] [address]- 3216 Jan, [facility] [place] [facility] [address] [id number] [place] [address]- 6227 16 Jan, 2015 [facility] [place] [facility] [address] [id number] [place] [address]- 9104 13 Jan, 2015 [facility] [place] [facility] [address] [id number] [place] [address]- 6559 13 Jan, 2014 [facility] [place] [facility] [address] [id number] [place] [address]- 0043 11 Jan, 2014 [facility] [place] [facility] [address] [id number] [place] [address]- 5611 11 Jan, 2015 [facility] [place] [facility] [address] [id number] [place] [address]- 8822 Jan, [facility] [place] [facility] [address] [id number] [place] [address]- 9012 Jan, [facility] [place] [facility] [address] [id number] [place] [address]- 8756 Jan, [facility] [place] [facility] [address] [id number] [place] [address]- 8666 Jan, [facility] [place] [facility] [address] [id number] [place] [address]- 0522 Jan, 2014 [facility] [place] [facility] [address] [id number] [place] [address]- 2766 Jan, 2014 [facility] [place] [facility] [address] [id number] [place] [address]- 8214 Jan, 2014 [facility] [place] [facility] [address] [id number] [place] [address]- 0912 Jan, 2014 [facility] [place] [facility] [address] [id number] [place] [address]- 3657 Jan, 2014 [facility] [place] [facility] [address] [id number] [place] [address]- 5004 Jan, 2014 [facility] [place] [facility] [address] [id number] [place] [address]- 8018 Jan, [facility] [place] [facility] [address] [id number] [place] [address]- 6438 Jan, [facility] [place] [facility] [address] [id number] [place] [address]- 7954 Dec, [facility] [place] [facility] [address] [id number] [place] [address]- 0390 Dec, [facility] [place] [facility] [address] [id number] [place] [address]- 8668 Dec, [facility] [place] [facility] [address] [id number] [place] [address]- 4743 Dec, [facility] [place] [facility] [address] [id number] [place] [address]- 3999 Nov, [facility] [place] [facility] [address] [id number] [place] [address] Nov, [facility] [place] [facility] [address] [id number] [place] [address] Nov, [facility] [place] [facility] [address] [id number] [place] [address] Nov, [facility] [place] [facility] [address] [facility] [id number] [place] [address] Nov, [facility] [place] [facility] [address] [id number] [place] [address] Nov, [facility] [place] [facility] [address] [id number] [place] [address] Nov, [facility] [place] [facility] [address] [id number] [place] [address] Oct, [facility] [place] [facility] [address] [id number] [place] [address] Oct, [facility] [place] [facility] [address] [id number] [place] [address] Oct, [facility] [place] [facility] [address] [id number] [place] [address] Oct, [facility] [place] [facility] [address] [id number] [place] [address] Oct, [facility] [place] [facility] [address] [id number] [place] [address] Oct, [facility] [place] [facility] [address] [id number] [place] [address] Oct, [facility] [place] [facility] [address] [id number] [place] [address] Oct, [facility] [place] [facility] [address] [id number] [place] [address] Oct, [facility] [place] [facility] [address] [id number] [place] [address] Oct, [facility] [place] [facility] [address] [id number] [place] [address] Oct, [facility] [place] [facility] [address] [id number] [place] [address] Oct, [facility] [place] [facility] [address] [id number] [place] [address] Sep, [facility] [place] [facility] [address] [id number] [place] [address] Sep, [facility] [place] [facility] [address] [id number] [place] [address] Sep, [facility] [place] [facility] [address] [id number] [place] [address] Sep, [facility] [place] [facility] [address] [id number] [place] [address] Jul, [facility] [place] [facility] [address] [id number] [place] [address] Jul, [facility] [place] [facility] [address] [id number] [place] [address] Jul, [facility] [place] [facility] [address] [id number] [place] [address] Jul, [facility] [place] [facility] [address] [id number] [place] [address] Jun, [facility] [place] [facility] [address] [id number] [place] [address] 8736 Jun, [facility] [place] [facility] [address] [id number] [place] [address] 4[address] Jun, [facility] [place] [facility] [address] [id number] [place] [address] 8874 Jun, [facility] [place] [facility] [address] [id number] [place] [address] May, [facility] [place] [facility] [address] [id number] [place] [address] 8349 May, [facility] [place] [facility] [address] [id number] [place] [address] 2347 April, [facility] [place] [facility] [address] [id number] [place] [address]- 0566 April, [facility] [place] [facility] [address] [id number] [place] [address] 4043 April, [facility] [place] [facility] [address] [id number] [place] [address]- 4395 April, [facility] [place] [facility] [address] [id number] [place] [address] 1553 April, [facility] [place] [facility] [address] [id number] [place] [address] April, [facility] [place] [facility] [address] [id number] [place] [address] April, [facility] [place] [facility] [address] [id number] [place] [address] 3467 April, [facility] [place] [facility] [address] [id number] [place] [address] 1740 April, [facility] [address] [id number] [place] [address]058 Mar, [facility] [place] [facility] [address] [id number] [place] [address]- 7126 Mar, [facility] [place] [facility] [address] [id number] [place] [address] 7087 Mar, [facility] [place] [facility] [address] [id number] [place] [address] 0491 Mar, [facility] [place] [facility] [address] [id number] [place] [address] 3594 Jan, [facility] [place] [facility] [address] [id number] [place] [address] 2517 Jan, [facility] [place] [facility] [address] [id number] [place] [address] 4175 Jan, [facility] [place] [facility] [address] [id number] [place] [address] 7780 Jan, [facility] [place] [facility] [address] [id number] [place] [address]- 6056 Jan, [facility] [place] [facility] [address] [id number] [place] [address]- 8025 Jan, [facility] [place] [facility] [address] [id number] [place] [address] 2334 Jan, [facility] [place] [facility] [address] [id number] [place] [address] 9621 Jan, [facility] [place] [facility] [address] [id number] [place] [address]- 1283 Jan, [facility] [place] [facility] [address] [id number] [place] [address]- 6186 Jan, [facility] [place] [facility] [address] [id number] [place] [address] 8010 Jan, [facility] [place] [facility] [address] [id number] [place] [address] 9227 Jan, [facility] [place] [facility] [address] [id number] [place] [address]- 8332 Dec, [facility] [place] [facility] [address] [id number] [place] [address]- 3305 Dec, [facility] [place] [facility] [address] [id number] [place] [address]- 0261 Dec, [facility] [place] [facility] [address] [id number] [place] [address] 2407 Dec, [facility] [place] [facility] [address] [id number] [place] [address]- 9233 Nov, [facility] [place] [facility] [address] [id number] [place] [address]- 6711 Nov, [facility] [place] [facility] [address] [id number] [place] [address]- 7684 Nov, [facility] [place] [facility] [address] [id number] [place] [address] 0473 Nov, [facility] [place] [facility] [address] [id number] [place] [address]- 6810 Oct, [facility] [place] [facility] [address] [id number] [place] [address] 4681 Oct, [facility] [place] [facility] [address] [id number] [place] [address]- 5941 Sep, [facility] [place] [facility] [address] [id number] [place] [address]- 4406 Sep, [facility] [place] [facility] [address] [id number] [place] [address] 8570 Jul, [facility] [place] [facility] [address] [id number] [place] [address] 8900 Jul, [facility] [place] [facility] [address] [id number] [place] [address]- 9883 Jun, [facility] [address] [id number] [place] [address]- 5368 Jun, [facility] [address] [id number] [place] [address] 3665 Jun, [facility] [address] [id number] [place] [address]- 2344 May, [facility] [address] [id number] [place] [address] 0976 May, [facility] [address] [id number] [place] [address] 2140 May, [facility] [address] [id number] [place] [address] 9739 May, [facility] [address] [id number] [place] [address] 3029 May, [facility] [address] [id number] [place] [address]- 7187 April, [facility] [address] [id number] [place] [address] 8512 April, [facility] [address] [id number] [place] [address] 6565 April, [facility] [address] [id number] [place] [address]- 6867 April, [facility] [address] [id number] [place] [address]- 7682 April, [facility] [place] [facility] [address] [id number] [place] [address]- 6419 April, [facility] [address] [id number] [place] [address] [address] Mar, [facility] [address] [id number] [place] [address]- 6962 15 Mar, 2013 [facility] [place] [facility] [address] [id number] [place] [address]- 2945 Jan, [facility] [address] [id number] [place] [address]- 1872 Jan, [facility] [address] [id number] [place] [address]- 1637 Jan, [facility] [address] [id number] [place] [address]- 5339 Jan, [facility] [address] [id number] [place] [address]- 2928 Jan, [facility] [address] [id number] [place] [address]- 6767 Jan, [facility] [address] [id number] [place] [address]- 1884 Jan, [facility] [address] [id number] [place] [address]- 0178 Jan, [facility] [address] [id number] [place] [address]- 4527 Jan, [facility] [address] [facility] [id number] [place] [address]- 9467 Jan, [facility] [address] [id number] [place] [address]- 3528 Jan, [facility] [address] [id number] [place] [address]- 8512 Dec, [facility] [address] [id number] [place] [address]- 3263 Nov, [facility] [address] [id number] [place] [address]- 3110 Nov, [facility] [place] [facility] [address] [id number] [place] [address]- 5620 Nov, [facility] [address] [id number] [place] [address]- 4444 26 Nov, 2012 [facility] [place] [facility] [address] [id number] [place] [address]- 8176 21 Nov, 2012 [facility] [place] [facility] [address] [id number] [place] [address] 20 Nov, 2012 [facility] [place] [facility] [address] [facility] [id number] [place] [address]- 9746 20 Nov, 2012 [facility] [place] [facility] [address] [id number] [place] [address]- 0297 19 Nov, 2012 [facility] [place] [facility] [address] [id number] [place] [address]- 0010 Nov, [facility] [place] [facility] [address] [facility] [id number] [place] [address]- 8476 18 Nov, 2012 [facility] [place] [facility] [address] [facility] [id number] [place] [address]- 6756 18 Nov, 2012 [facility] [place] [facility] [address] [id number] [place] [address]- 7702 Nov, [facility] [place] [facility] [address] [facility] [id number] [place] [address]- 2067 Nov, [facility] [place] [facility] [address] [facility] [id number] [place] [address]- 9953 Oct, [facility] [place] [facility] [address] [facility] [id number] [place] [address]- 9779 Oct, [facility] [place] [facility] [address] [facility] [id number] [place] [address]- 4319 Oct, [facility] [place] [facility] [address] [id number] [place] [address]- 6951 Sep, [facility] [place] [facility] [address] [facility] [id number] [place] [address]- 7052 Sep, [facility] [place] [facility] [address] [facility] [id number] [place] [address]- 8372 Sep, [facility] [place] [facility] [address] [id number] [place] [address]- 4951 10 Sep, 2012 [facility] [place] [facility] [address] [id number] [place] [address]- 4153 27 Aug, 2012 [facility] [place] [facility] [address] [id number] [place] [address]- 9561 20 Aug, 2012 [facility] [place] [facility] [address] [id number] [place] [address]- 4709 24 Jul, 2012 [facility] [place] [facility] [address] [id number] [place] [address]- 0347 May, [facility] [place] [facility] [address] [id number] [place] [address]- 1356 May, [facility] [place] [facility] [address] [id number] [place] [address]- 3945 May, [facility] [place] [facility] [address] [id number] [place] [address]- 9291 April, [facility] [place] [facility] [address] [id number] [place] [address]- 0975 Mar, [facility] [place] [facility] [address] [id number] [place] [address]- 0985 Mar, [facility] [place] [facility] [address] [id number] [place] [address]- 2569 Mar, [facility] [place] [facility] [address] [id number] [place] [address]- 7138 Jan, [facility] [place] [facility] [address] [id number] [place] [address]- 0487 Jan, [facility] [place] [facility] [address] [id number] [place] [address]- 7437 Jan, [facility] [place] [facility] [address] [id number] [place] [address]- 9983 Dec, [facility] [place] [facility] [address] [id number] [place] [address]- 4483 Dec, [facility] [place] [facility] [address] [id number] [place] [address]- 8402 Dec, [facility] [place] [facility] [address] [id number] [place] [address]- 8673 Dec, [facility] [place] [facility] [address] [id number] [place] [address]- 4839 Nov, [facility] [place] [facility] [address] [id number] [place] [address]- 5093 Nov, [facility] [place] [facility] [address] [id number] [place] [address]- 6017 Nov, [facility] [place] [facility] [address] [id number] [place] [address]- 1172 Oct, [facility] [place] [facility] [address] [id number] [place] [address]- 4830 Sep, [facility] [place] [facility] [address] [id number] [place] [address]- 4940 Sep, [facility] [place] [facility] [address] [id number] [place] [address]- 8036 Sep, [facility] [place] [facility] [address] [id number] [place] [address]- 3504 Nov, [facility] [place] [facility] [address] [id number] [place] [address]- 5638 Oct, [facility] [place] [facility] [address] [id number] [place] [address]- 2797 Oct, [facility] [place] [facility] [address] [id number] [place] [address]- 5369 18 Oct, 2010 [facility] [place] [facility] [address] [id number] [place] [address]- 5684 16 Oct, 2010 [facility] [place] [facility] [address] [id number] [place] [address]- 5693 11 Sep, 2010 [facility] [place] [facility] [id number] [place] [address]- 5150 April, [facility] [id number] [place] [address]- 5855 Nov, [facility] [id number] [place] [address]- 9911 Nov, [facility] [id number] [place] [address]- 2047 Nov, [facility] [id number] [place] [address]- 8354 Nov, [facility] [id number] [place] [address]- 1156 Nov, [facility] [id number] [place] [address]- 9832 Oct, [facility] [id number] [place] [address]- 6563 Oct, [facility] [id number] [place] [address]- 3391 Sep, [facility] [id number] [place] [address]- 2959 Jan, IMMUNIZATIONS No Known Immunizations SOCIAL HISTORY Never Assessed REASON FOR VISIT Refill request PLAN OF CARE VITAL SIGNS MEDICATIONS Medication Instructions Dosage Frequency Start Date End Date Duration Status Olanzapine 2.5 MG TAKE 1/2 TABLET BY MOUTH TWICE DAILY 30 Active RESULTS No Results PROCEDURES No Known procedures INSTRUCTIONS MEDICATIONS ADMINISTERED No Known Medications MEDICAL (GENERAL) HISTORY Type Description Date Medical History Hypertension Medical History Heart disease CABG X3 Stress test 07/2015 Medical History Gastric ulcer Medical History Hyperlipidemia Medical History Headache syndrome Medical History Psychiatric disorders-depression/racing thoughts Medical History Depression Medical History At [facility] 04/2016 Started on Eliquis Medical History Anemia 04/2016 postsurgical hip fx Surgical History right hip replacement w/ Dr. Bruce 2011 Surgical History triple bypass surgery 2003 Surgical History S/P left hip IM Nail (Intertrechanteric hip fx) 04/28/16 Hospitalization History surgeries Hospitalization History Hypertension Hospitalization History ER for a concussion 11/24/15 Hospitalization History Intertrechanteric hip fx 04/27/16 Hospitalization History [facility] (inpatient [facility] 2 times) Hx of 3 inpatient psych treatments in past in [place] oct 2016 [facility]
--- OUTSIDE RECORDS SUMMARY | 2018-08-20 12:35 | XMS REPORT ---
Author Author WOLF AGUIRRE [facility] Address [address] [place] [address] Care Team Providers Care Rn Cvor Name Role Phone WOLF AGUIRRE Unavailable PROBLEMS Type Condition ICD9-CM Code [id number] Code Onset Dates Condition Status SNOMED Code Problem Sundowning F05 Active 957479184 Problem Constipation, unspecified constipation type K59.00 Active 84086965 Problem Reactive depression F32.9 Active 94850472 Problem Vascular dementia with behavior disturbance F01.51 Active 867103951784108 Problem Insomnia, unspecified type G47.00 Active 509133396 Problem Generalized anxiety disorder F41.1 Active 69403452 Problem Other chronic pain G89.29 Active 78976039 Problem Severe episode of recurrent major depressive disorder, without psychotic features F33.2 Active 99871274 Problem Slow transit constipation K59.01 Active 05028052 Problem 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 Active 686315297 Problem Obsessive thinking F42.8 Active 42185748 Problem Failure to thrive in adult R62.7 Active 144015108 Problem Dysthymic disorder F34.1 Active 64893815 Problem Hypertension I10 Active 33492912 Problem Mood disorder F39 Active 44989596 Problem Irritable bowel syndrome with diarrhea K58.0 Active 290828022 Problem Oropharyngeal dysphagia R13.12 Active 25644089 Problem 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 Active 58327309 Problem Other chronic pain G89.29 Active 47090149 Problem Primary insomnia F51.01 Active 4183821 Problem Poor appetite R63.0 Active 80421190 Problem Atherosclerotic heart disease of [place] 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 Active 380911175478455 Problem Iron deficiency anemia secondary to inadequate dietary iron intake D50.8 Active 273146037 Problem Coarse tremors G25.2 Active 86465813 Problem Gastroesophageal reflux disease without esophagitis K21.9 Active 500753177 Problem Essential hypertension I10 Active 03741164 ALLERGIES No Information ENCOUNTERS Encounter Location Date Diagnosis [facility] [place] [id number] [place] [address] 59662- 3341 April, [facility] [address] [place] [id number] April, Generalized anxiety disorder F41.1 ; Obsessive thinking F42.8 and Insomnia , unspecified type G47.00 [facility] [id number] [place] [address] 72814- 2911 April, [facility] [id number] [place] [address] 11738- 2706 April, Rash of face R21 [facility] [address] 71433- 6869 Mar, [facility] [id number] [place] [address] 19247- 3146 Mar, [facility] [id number] [place] [address] 46926- 7821 Mar, [facility] [id number] [place] [address] 93575- 4930 Jan, [facility] [id number] [place] [address] 37990- 4933 Jan, [facility] [address] [place] [id number] Jan, Constipation, unspecified constipation type K59.00 and Other chronic pain G89.29 [facility] [id number] [place] [address] 46951- 3121 Jan, [facility] [address] [place] [id number] Jan, Obsessive thinking F42.8 and Coarse tremors G25.2 [facility] [id number] [place] [address] [id number] Jan, [place] [facility] [id number] [place] [address] [phone] Jan, [facility] [address] [place] [id number] Jan, Generalized anxiety disorder F41.1 ; Obsessive thinking F42.8 ; Callus of foot L84 and 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 [facility] [place] [id number] [place] [address] 26147- 5411 Dec, Generalized anxiety disorder F41.1 and Severe episode of recurrent major depressive disorder, without psychotic features F33.2 [facility] [place] [id number] [place] [address] 48745- 0571 Nov, [facility] [place] [address] 20702- 5029 Nov, [facility] [address] [id number] Nov, Oropharyngeal dysphagia R13.12 ; Generalized anxiety disorder F41.1 and 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 [facility] [place] [id number] [place] [address] 74300- 1055 Nov, [facility] [id number] [place] [address] [id number] Nov, [facility] [place] [id number] [place] [address] 99596- 3310 Nov, [facility] [place] [id number] [place] [address] 46355- 0950 Nov, [facility] [place] [id number] [place] [address] 12495- 0507 Oct, Constipation, unspecified constipation type K59.00 and Mood disorder F39 [facility] [place] [id number] [place] [address] [phone] 8675 Oct, [facility] [id number] [place] [address] [id number] Sep, [facility] [id number] [place] [address] [phone] Sep, [facility] [address] [id number] Sep, [facility] [id number] [id number] Sep, [facility] [address] [id number] Sep, Generalized abdominal pain R10.84 [facility] [place] [address] [address] 2546 Sep, [facility] [id number] [place] [address] [phone] Sep, Generalized anxiety disorder F41.1 and Primary insomnia F51.01 [facility] [id number] [place] [address] [phone] Aug, [facility] [id number] [place] [address] [id number] Aug, Generalized anxiety disorder F41.1 [facility] [place] [address] [place] [address] 67068- 5588 Jul, [facility] [address] [id number] Jul, Obsessive thinking F42.8 [facility] [place] [address] [address]- 4819 Jul, Generalized anxiety disorder F41.1 and Irritable bowel syndrome with diarrhea K58.0 [facility] [id number] [id number] Jul, Generalized anxiety disorder F41.1 [facility] [id number] [id number] Jun, Generalized anxiety disorder F41.1 [facility] [place] [id number] [address] 2356 May, [facility] [address] [id number] May, Generalized anxiety disorder F41.1 ; Irritable bowel syndrome with diarrhea K58.0 and Coarse tremors G25.2 [facility] [place] [address] [address]- 6482 April, [facility] [place] [id number] [place] [address] 53599- 1625 April, [facility] [place] [id number] [address] 9853 April, [facility] [place] [id number] [place] [address] 72673- 7171 Mar, [facility] [address] [place] [id number] Mar, Severe episode of recurrent major depressive disorder, without psychotic features F33.2 and Pain in left hip M25.552 [facility] [place] [id number] [place] [address] 44145- 3321 Mar, [facility] [id number] [place] [address] 02752- 8822 Mar, [facility] [place] [id number] [place] [address] 18398- 3561 Mar, [facility] [place] [id number] [place] [address] 89056- 4465 Mar, Pain in right hip M25.551 and Self-care deficit in patient living alone R46.89 [facility] [address] [address] Jan, Other chronic pain G89.29 ; Pain in left hip M25.552 and Slow transit constipation K59.01 [facility] [place] [address] [address]- 1340 Jan, [facility] [place] [id number] [place] [address] 59090- 2677 Dec, Other depression F32.89 ; Constipation, unspecified constipation type K59.00 and Insomnia, unspecified type G47.00 [facility] [place] [id number] [place] [address] 85268- 9455 Nov, Reactive depression F32.9 ; Chronic idiopathic constipation K59.04 ; Generalized anxiety disorder F41.1 ; Coarse tremors G25.2 ; Gastroesophageal reflux disease without esophagitis K21.9 ; Dysthymic disorder F34.1 ; Vitamin deficiency, unspecified E56.9 and Primary insomnia F51.01 [facility] [id number] [place] [address] 31788- 0888 Nov, [facility] [facility] [address] 05666- 6950 Nov, [facility] [id number] [place] [address] 66101- 9069 Nov, [facility] [id number] [place] [address] 84052- 7868 Nov, Reactive depression F32.9 ; Essential hypertension I10 ; Generalized anxiety disorder F41.1 ; Atherosclerotic heart disease of [place] 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 ; Pain in right hip M25.551 ; Other chronic pain G89.29 ; Chronic idiopathic constipation K59.04 ; Primary insomnia F51.01 ; Coarse tremors G25.2 ; Gastroesophageal reflux disease without esophagitis K21.9 ; Iron deficiency anemia secondary to inadequate dietary iron intake D50.8 and Vitamin deficiency, unspecified E56.9 [facility] [id number] [place] [address] 15424- 8416 Oct, [facility] [id number] [place] [address] 12103- 9129 Oct, [facility] [id number] [place] [address] 14692- 0489 Oct, [address] 74677- 5295 Oct, Generalized anxiety disorder F41.1 ; Poor appetite R63.0 ; Dehydration E86.0 and Failure to thrive in adult R62.7 [facility] [id number] [place] [address] 85775- 6271 Oct, Generalized anxiety disorder F41.1 and Failure to thrive in adult R62.7 [facility] [place] [address] [place] [address] 40022- 5846 Oct, [facility] [place] [id number] [place] [address] 00312- 7120 Oct, [facility] [id number] [place] [address] 30804 -3230 Sep, Vaginal discharge N89.8 and Acute cystitis with hematuria N30.01 [facility] [place] [id number] [place] [address] 43497- 5215 Sep, [facility] [place] [id number] [place] [address] 58667- 7362 Sep, [facility] [place] [id number] [place] [address] 58198- 8936 Sep, Dysthymic disorder F34.1 ; Acute vaginitis N76.0 ; Dysuria R30.0 and Vaginal yeast infection B37.3 [facility] [place] [id number] [place] [address] 58231- 9739 Aug, [facility] [place] [id number] [place] [address] 85552- 0633 Aug, [facility] [address] [place] [address] 65195 -8888 Aug, Foul smelling urine R82.90 ; Rapid heart rate R00.0 and Flatulence R14.3 [facility] [place] [address] [place] [address] 87773- 8161 Aug, [facility] [place] [id number] [place] [address] 90800- 2206 Jul, Constipation, unspecified constipation type K59.00 ; Weak R53.1 ; Poor appetite R63.0 ; Coronary artery disease involving [place] heart without angina pectoris, unspecified vessel or lesion type I25.10 ; Fatigue, unspecified type R53.83 ; Urinary incontinence, unspecified type R32 and Insomnia, unspecified type G47.00 [facility] [place] [id number] [place] [address] 10571- 6167 Jul, [facility] [place] [id number] [place] [address] 32693- 0027 Jun, Dysuria R30.0 [facility] [place] [address] 86434- 5624 Jun, [facility] [place] [id number] [place] [address] 51976- 7204 Jun, Urinary tract infection, site not specified N39.0 ; Acute vaginitis N76.0 and Diarrhea, unspecified type R19.7 [facility] [id number] [place] [address] 11639- 8562 May, [facility] [place] [id number] [place] [address] 37772- 8562 April, [facility] [address] [id number] April, Encounter for dental examination Z01.20 [facility] [id number] [place] [address] 56401- 1326 April, [facility] [place] [id number] [place] [address] 04192- 8414 April, Tremor R25.1 and Episodic tension-type headache, not intractable G44.219 [facility] [place] [id number] [place] [address] 34089- 0177 Mar, [facility] [place] [id number] [place] [address] 70376- 0147 Jan, Mood disorder F39 [facility] [id number] [place] [address] 90423 -3915 Jan, [facility] [place] [id number] [place] [address] 97832- 5663 Jan, [facility] [place] [address], [place] [address]- 7936 Jan, [facility] [place] [id number] [place] [address] 12161- 4277 Jan, [facility] [place] [address] [place] [address] 91113- 7659 Jan, [facility] [place] [id number] [place] [address] 22964- 3094 Jan, [facility] [id number] [place] [address] 93969 -8844 Dec, Acute diarrhea R19.7 [facility] [place] [id number] [place] [address] 09290- 0708 Dec, [facility] [place] [id number] [place] [address] 98622- 7243 Dec, [facility] [place] [id number] [place] [address] 71926- 4052 Dec, [facility] [id number] [place] [address] 39439 -2497 Dec, N&V (nausea and vomiting) R11.2 [facility] [place] [address] [place] [address] 28821- 1763 Dec, Generalized anxiety disorder F41.1 [facility] [place] [id number] [place] [address] 16739- 4306 Dec, Generalized anxiety disorder F41.1 [facility] [place] [address] [place] [address] 41649- 5828 Nov, Post concussion syndrome F07.81 [facility] [place] [id number] [place] [address] 64864- 9467 Nov, Generalized anxiety disorder F41.1 [facility] [place] [address] [place] [address] 39863- 8611 Nov, [facility] [place] [address] [place] [address] 22971- 8175 Nov, Generalized anxiety disorder F41.1 [facility] [id number] [place] [address] [id number] Oct, Dental caries K02.9 [facility] [place] [id number] [place] [address] 67697- 2472 Oct, [facility] [id number] [place] [address] [id number] Oct, Dental examination Z01.20 [facility] [address] [id number] 10 Oct, 2015 Encounter for dental examination Z01.20 [facility] [place] [id number] [place] [address] 03991- 9211 Oct, CAD (coronary artery disease) I25.10 [facility] [place] [id number] [place] [address] 97952- 5249 Sep, Generalized anxiety disorder F41.1 [facility] [place] [id number] [place] [address] 46298- 1356 Sep, [facility] [place] [id number] [place] [address] 07060- 6566 Sep, Rash and other nonspecific skin eruption R21 and Yeast vaginitis B37.3 [facility] [place] [id number] [place] [address] 06807- 0370 Sep, Generalized anxiety disorder F41.1 [facility] [place] [id number] [place] [address] 47467- 7132 Aug, Insect bites 919.4 and Hemorrhoids 455.6 [facility] [place] [id number] [place] [address] 69239- 5881 Aug, Generalized anxiety disorder 300.02 [facility] [place] [id number] [place] [address] 05103- [phone] 08 Aug, 2015 [facility] [place] [address] [place] [address] 54341- 8395 Aug, [facility] [place] [id number] [place] [address] 09900- 8953 Aug, Generalized anxiety disorder 300.02 ; No condition on Superior II V71.09 ; Heart problem 429.9 and Hypertension 401.9 [facility] [place] [id number] [place] [address] 31210- 0489 Aug, [facility] [place] [id number] [place] [address] 90735- 0495 Jul, [facility] [place] [id number] [place] [address] 52331- 7746 Jul, [facility] [place] [id number] [place] [address] 12084- 6431 Jul, [facility] [place] [id number] [place] [address] 96619- 6562 Jul, [facility] [place] [id number] [place] [phone] Jul, Rash 782.1 [facility] [place], [facility] [id number] [place] [address] [phone] Jul, UTI (urinary tract infection) 599.0 [facility] [place], [facility] [id number] [place] [address] [phone] Jul, [facility] [place], [facility] [id number] [place] [address] [phone] Jun, Dysthymia 300.4 and Anxiety 300.00 [facility] [place], [facility] [id number] [place] [address] [phone]- [phone] Jun, 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 [facility] [place], [facility] [id number] [address] May, [facility] [place], [facility] [id number] [place] [address] [phone] May, [facility] [place], [facility] [address] [id number] [address] May, Unspecified breast screening V76.10 [facility] [address] [id number] [id number] May, Dental examination V72.2 [facility] [place], [facility] [address] [id number] [address] April, [facility] [place], [facility] [address] [id number], [place] [address] April, [facility] [address] [id number] [id number] April, Dental examination V72.2 [facility] [id number] [id number] April, Dental examination V72.2 [facility] [place], [facility] [address] [id number], [place] [address] Mar, [facility] [place], [facility] [address] [id number], [place] [address] Mar, [facility] [place], [facility] [address] [id number], [place] [address] Jan, [facility] [facility] [place] [address] [facility] [id number], [place] [address] 2546 25 Jan, 2015 [facility] [place] [address] [id number], [place] [address] 18 Jan, 2015 [facility] [address] [id number], [place] [address] 18 Jan, 2015 [facility] [address] [id number], [place] [address] 16 Jan, 2015 [facility] [address] [facility] [id number], [place] [address]46 16 Jan, 2015 [facility] [address] [facility] [id number], [place] [address] 13 Jan, 2015 [facility] [place] [facility] [address] [id number] [place] [address] 4946 13 Jan, 2015 [facility] [place] [facility] [address] [id number] [place] [address] 0851 Jan, [facility] [place] [facility] [address] [facility] [id number] [place] [address] 7548 Jan, [facility] [place] [facility] [address] [id number] [place] [address]- 5455 Jan, [facility] [place] [facility] [address] [id number] [place] [address]- 7306 Jan, [facility] [place] [facility] [address] [id number] [place] [address]- 4221 Jan, [facility] [place] [facility] [address] [facility] [id number] [place] [address]- 6786 Jan, [facility] [place] [facility] [address] [facility] [id number] [place] [address]- 8859 Jan, 2014 [facility] [place] [facility] [address] [facility] [id number] [place] [address]- 9332 Jan, 2014 [facility] [place] [facility] [address] [facility] [id number] [place] [address]- 0488 Jan, 2014 [facility] [place] [facility] [address] [facility] [id number] [place] [address]- 8500 Jan, 2014 [facility] [place] [facility] [address] [facility] [id number] [place] [address]- 7305 Jan, 2014 [facility] [place] [facility] [address] [facility] [id number] [place] [address]- 4581 Jan, 2014 [facility] [place] [facility] [address] [facility] [id number] [place] [address]- 6479 Jan, 2014 [facility] [place] [facility] [address] [facility] [id number] [place] [address]- 5436 Jan, 2014 [facility] [place] [facility] [address] [id number] [place] [address]- 7600 Dec, [facility] [place] [facility] [address] [id number] [place] [address]- 8873 Dec, [facility] [place] [facility] [address] [id number] [place] [address]- 7430 Dec, [facility] [place] [facility] [address] [id number] [place] [address]- 1649 Dec, [facility] [place] [facility] [address] [id number] [place] [address]- 2931 Nov, [facility] [place] [facility] [address] [id number] [place] [address]- 2996 Nov, [facility] [place] [facility] [address] [id number] [place] [address]- 0000 Nov, [facility] [place] [facility] [address] [id number] [place] [address]- 3531 Nov, [facility] [place] [facility] [address] [id number] [place] [address]- 9634 Nov, [facility] [place] [facility] [address] [id number] [place] [address]- 9621 Nov, [facility] [place] [facility] [address] [id number] [place] [address]- 2305 Nov, [facility] [place] [facility] [address] [id number] [place] [address]- 4282 Oct, [facility] [place] [facility] [address] [id number] [place] [address]- 0981 Oct, [facility] [place] [facility] [address] [id number] [place] [address]- 7282 Oct, [facility] [place] [facility] [address] [id number] [place] [address]- 6676 Oct, [facility] [place] [facility] [address] [id number] [place] [address]- 9525 Oct, [facility] [place] [facility] [address] [id number] [place] [address]- 1906 Oct, [facility] [place] [facility] [address] [id number] [place] [address]- 5886 Oct, [facility] [place] [facility] [address] [id number] [place] [address]- 9051 Oct, [facility] [place] [facility] [address] [id number] [place] [address]- 6678 Oct, [facility] [place] [facility] [address] [id number] [place] [address]- 6712 Oct, [facility] [place] [facility] [address] [id number] [place] [address]- 0427 Oct, [facility] [place] [facility] [address] [id number] [place] [address]- 2896 Oct, [facility] [place] [facility] [address] [id number] [place] [address]- 4462 Sep, [facility] [place] [facility] [address] [id number] [place] [address]- 8721 Sep, [facility] [place] [facility] [address] [id number] [place] [address]- 4041 Sep, [facility] [place] [facility] [address] [id number], [place] [address]- 5044 Sep, [facility] [place] [facility] [address] [id number], [place] [address]- 3066 Jul, [facility] [place] [facility] [address] [id number] [place] [address]- 6222 Jul, [facility] [place] [facility] [address] [id number] [place] [address]- 9879 Jul, [facility] [place] [facility] [address] [id number] [place] [address]- 0950 Jul, [facility] [place] [facility] [address] [id number] [place] [address]- 8804 Jun, [facility] [place] [facility] [address] [id number] [place] [address]- 9230 Jun, [facility] [place] [facility] [address] [id number] [place] [address]- 4072 Jun, [facility] [place] [facility] [address] [id number] [place] [address]- 0553 Jun, [facility] [place] [facility] [address] [id number] [place] [address]- 4367 May, [facility] [place] [facility] [address] [id number] [place] [address]- 0339 May, [facility] [place] [facility] [address] [id number] [place] [address]- 5245 April, [facility] [place] [facility] [address] [id number] [place] [address]- 1372 April, [facility] [place] [facility] [address] [id number] [place] [address]- 1732 April, [facility] [place] [facility] [address] [id number] [place] [address]- 7872 April, [facility] [place] [facility] [address] [id number] [place] [address]- 8707 April, [facility] [place] [facility] [address] [id number] [place] [address]- 4212 April, [facility] [place] [facility] [address] [id number] [place] [address]- 4619 April, [facility] [place] [facility] [address] [id number] [place] [address]- 7176 April, [facility] [place] [facility] [address] [id number] [place] [address]851 April, [facility] [place] [facility] [address] [id number] [place] [address]- 9129 Mar, [facility] [place] [facility] [address] [id number] [place] [address]- 3016 Mar, [facility] [place] [facility] [address] [id number] [place] [address]- 0832 Mar, [facility] [place] [facility] [address] [id number] [place] [address]- 6499 Mar, [facility] [place] [facility] [address] [id number] [place] [address]- 5385 Jan, [facility] [place] [facility] [address] [id number] [place] [address]- 1262 Jan, [facility] [place] [facility] [address] [id number] [place] [address]- 4929 Jan, [facility] [place] [facility] [address] [id number] [place] [address]- 7361 Jan, [facility] [place] [facility] [address] [id number] [place] [address]- 5618 Jan, [facility] [place] [facility] [address] [id number] [place] [address]- 3680 Jan, [facility] [place] [facility] [address] [id number] [place] [address]- 9011 Jan, [facility] [place] [facility] [address] [id number] [place] [address]- 8583 Jan, [facility] [place] [facility] [address] [id number] [place] [address]- 3887 Jan, [facility] [place] [facility] [address] [id number] [place] [address]- 7748 Jan, [facility] [place] [facility] [address] [id number] [place] [address]- 1205 Jan, [facility] [place] [facility] [address] [id number] [place] [address]- 3467 Jan, [facility] [place] [facility] [address] [id number] [place] [address]- 9147 Dec, [facility] [place] [facility] [address] [id number] [place] [address]- 3839 Dec, [facility] [place] [facility] [address] [id number] [place] [address]- 7482 Dec, [facility] [place] [facility] [address] [id number] [place] [address]- 5425 Dec, [facility] [place] [facility] [address] [id number] [place] [address]- 0790 Nov, [facility] [place] [facility] [address] [id number] [place] [address]- 2072 Nov, [facility] [place] [facility] [address] [id number] [place] [address]- 9629 Nov, [facility] [place] [facility] [address] [facility] [id number] [place] [address]- 1400 Nov, [facility] [place] [facility] [address] [id number] [place] [address]- 9224 Oct, [facility] [place] [facility] [address] [facility] [id number] [place] [address]- 5263 Oct, [facility] [place] [facility] [address] [facility] [id number] [place] [address]- 1008 Sep, [facility] [place] [facility] [address] [id number] [place] [address]- 7581 Sep, [facility] [place] [facility] [address] [id number] [place] [address]- 0144 Jul, [facility] [place] [facility] [address] [id number] [place] [address]- 7688 Jul, [facility] [place] [facility] [address] [id number] [place] [address]385 Jun, [facility] [place] [facility] [address] [facility] [id number] [place] [address]- 6971 Jun, [facility] [place] [facility] [address] [id number] [place] [address]- 5207 Jun, [facility] [address] [id number] [place] [address]- 8848 May, [facility] [place] [facility] [address] [id number] [place] [address]- 3346 May, [facility] [address] [id number] [place] [address]- 1763 May, [facility] [place] [facility] [address] [id number] [place] [address]- 2595 May, [facility] [address] [id number] [place] [address]- 5470 May, [facility] [place] [facility] [address] [id number] [place] [address]- 1544 April, [facility] [address] [id number] [place] [address]- 4428 April, [facility] [address] [id number] [place] [address]- 9695 April, [facility] [address] [id number] [place] [address]- 8696 April, [facility] [address] [id number] [place] [address]- 2065 April, [facility] [place] [facility] [address] [id number] [place] [address]- 2186 April, [facility] [place] [facility] [address] [id number] [place] [address]- 4610 Mar, [facility] [place] [facility] [address] [id number] [place] [address]- 7143 Mar, [facility] [place] [facility] [address] [id number] [place] [address]- 3306 Jan, [facility] [place] [facility] [address] [id number] [place] [address]- 5548 Jan, [facility] [address] [id number] [place] [address]- 6128 Jan, [facility] [place] [facility] [address] [id number] [place] [address]- 4626 Jan, [facility] [place] [facility] [address] [id number] [place] [address]- 9510 Jan, [facility] [place] [facility] [address] [id number] [place] [address]- 1047 Jan, [facility] [place] [facility] [address] [id number] [place] [address]- 1891 Jan, [facility] [place] [facility] [address] [id number] [place] [address]- 0100 Jan, [facility] [place] [facility] [address] [id number] [place] [address]- 5910 Jan, [facility] [place] [facility] [address] [id number] [place] [address]- 9685 Jan, [facility] [place] [facility] [address] [id number] [place] [address]- 5003 Jan, [facility] [place] [facility] [address] [id number] [place] [address]- 2721 Dec, [facility] [place] [facility] [address] [id number] [place] [address]- 2010 Nov, [facility] [place] [facility] [address] [id number] [place] [address]- 9787 Nov, [facility] [place] [facility] [address] [id number] [place] [address]- 9934 Nov, [facility] [place] [facility] [address] [id number] [place] [address]- 9769 Nov, [facility] [place] [facility] [address] [id number] [place] [address]- 7501 Nov, [facility] [place] [facility] [address] [id number] [place] [address]- 6179 20 Nov, 2012 [facility] [place] [facility] [address] [id number] [place] [address]168 20 Nov, 2012 [facility] [place] [facility] [address] [id number] [place] Nov, [facility] [place] [facility] [address] [id number] [place] [address]- 7589 Nov, [facility] [place] [facility] [address] [id number] [place]9 18 Nov, 2012 [facility] [place] [facility] [address] [id number] [place] Nov, [facility] [place] [facility] [address] [id number] [place] [address]- 9175 Nov, [facility] [place] [facility] [address] [id number] [place] [address]- 1602 Nov, [facility] [place] [facility] [address] [id number] [place] [address]- 9404 Oct, [facility] [place] [facility] [address] [id number] [place] [address]- 3966 Oct, [facility] [place] [facility] [address] [facility] [id number] [place] [address]- 1004 Oct, [facility] [place] [facility] [address] [id number] [place] [address]- 6486 Sep, [facility] [place] [facility] [address] [id number] [place] [address]- 0857 Sep, [facility] [place] [facility] [address] [id number] [place] [address]- 0622 Sep, [facility] [place] [facility] [address] [id number] [place] [address]- 3556 Sep, [facility] [place] [facility] [address] [id number] [place] [address]- 0949 Aug, [facility] [place] [facility] [address] [id number] [place] [address]- 3539 20 Aug, 2012 [facility] [place] [facility] [address] [id number] [place] [address]- 1141 24 Jul, 2012 [facility] [place] [facility] [address] [id number] [place] [address]- 2602 May, [facility] [place] [facility] [address] [id number] [place] [address]- 1913 May, [facility] [place] [facility] [address] [id number] [place] [address]- 4710 May, [facility] [place] [facility] [address] [id number] [place] [address]- 9155 April, [facility] [place] [facility] [address] [id number] [place] [address]- 2133 Mar, [facility] [place] [facility] [address] [id number] [place] [address]- 1434 Mar, [facility] [place] [facility] [address] [id number] [place] [address]- 2600 Mar, [facility] [place] [facility] [address] [id number] [place] [address]- 4062 Jan, [facility] [place] [facility] [address] [id number] [place] [address]- 8298 Jan, [facility] [place] [facility] [address] [id number] [place] [address]- 1884 Jan, [facility] [place] [facility] [address] [id number] [place] [address]- 5108 Dec, [facility] [place] [facility] [address] [id number] [place] [address]- 0187 Dec, [facility] [place] [facility] [address] [id number] [place] [address]- 5837 Dec, [facility] [place] [facility] [address] [id number] [place] [address]- 7727 03 Dec, 2011 [facility] [place] [facility] [address] [id number] [place] [address]- 8244 28 Nov, 2011 [facility] [place] [facility] [address] [id number] [place] [address]993 15 Nov, 2011 [facility] [place] [facility] [address] [id number] [place] [address]- 5736 03 Nov, 2011 [facility] [place] [facility] [address] [id number] [place] [address]- 9194 03 Oct, 2011 [facility] [place] [facility] [address] [id number] [place] 1216 31 Sep, 2011 [facility] [place] [facility] [address] [id number] [place] [address]- 5556 26 Sep, 2011 [facility] [place] [facility] [address] [id number] [place] [address]- 0974 13 Sep, 2011 [facility] [place] [facility] [address] [id number] [place] [address]- 3335 15 Nov, 2010 [facility] [place] [facility] [address] [id number] [place] [address]- 3107 23 Oct, 2010 [facility] [place] [facility] [address] [facility] [id number] [place] [address]- 5815 Oct, [facility] [place] [facility] [address] [id number] [place] [address]- 8132 18 Oct, 2010 [facility] [place] [facility] [address] [id number] [place] [address]- 3360 16 Oct, 2010 [facility] [place] [facility] [address] [id number] [place] [address]- 1766 11 Sep, 2010 [facility] [place] [facility] [address] [id number] [place] [address]- 1131 April, [facility] [place] [facility] [address] [facility] [id number] [place] 6125 29 Nov, 2009 [facility] [place] [facility] [id number] [address]- 4500 Nov, [facility] [place] [id number] [address]- 2549 Nov, [facility] [place] [id number], [place] [address]- 1361 Nov, [facility] [place] [id number] [address]- 6707 Nov, [facility] [place] [id number], [place] [address] Oct, [facility], [place], [facility] [id number] [address] Oct, [facility], [place], [facility] [id number] [address] Sep, [facility], [place], [facility] [id number] [address] Jan, IMMUNIZATIONS No Known Immunizations SOCIAL HISTORY Never Assessed REASON FOR VISIT bowel concerns PLAN OF CARE Activity Details Follow Up prn Reason: VITAL SIGNS MEDICATIONS Medication Instructions Dosage Frequency Start Date End Date Duration Status Naproxen 500 mg Orally every 12 hrs 1 tablet as needed 12h Jan, Active Celexa 10 mg Orally Once a day 1.5 tablets 24h Active Exelon 4.6 MG/24HR Transdermal Once a day 1 patch to skin 24h Active Probiotic - Active Citalopram Hydrobromide 10 mg Orally Once a day 1.5 tabs 24h Active Aspir-81 81 MG Orally Once a day 1 tablet 24h 07 Nov, 2016 Active Klonopin 0.5 MG Orally at bedtime 1 tablet 28 Active Citalopram Hydrobromide 20 MG TAKE 1 TABLET BY MOUTH ONCE DAILY 30 Active Olanzapine 2.5 MG TAKE 1/2 TABLET BY MOUTH TWICE DAILY 30 Active RESULTS No Results PROCEDURES Procedure Date Ordered Result Body Site Minor complication (15 mins) Oct 22, 2017 INSTRUCTIONS MEDICATIONS ADMINISTERED No Known Medications MEDICAL [...] History Intertrechanteric hip fx 04/27/16 Hospitalization History [facility] ([facility]patient [facility] times) Hx of 3 inpatient psych treatments in past in [place] oct 2016 [facility]
--- OUTSIDE RECORDS SUMMARY | 2018-08-20 12:35 | XMS REPORT ---
Author Author WOLF AGUIRRE [facility] Address [address] [place] [address] Care Team Providers Care Kiln Placer Name Role Phone WOLF AGUIRRE Unavailable PROBLEMS Type Condition ICD9-CM Code [id number] Code Onset Dates Condition Status SNOMED Code Problem Sundowning F05 Active 869010465 Problem Constipation, unspecified constipation type K59.00 Active 11197114 Problem Reactive depression F32.9 Active 75295383 Problem Vascular dementia with behavior disturbance F01.51 Active 812179965255123 Problem Insomnia, unspecified type G47.00 Active 767546245 Problem Generalized anxiety disorder F41.1 Active 19741878 Problem Other chronic pain G89.29 Active 46964357 Problem Severe episode of recurrent major depressive disorder, without psychotic features F33.2 Active 88903910 Problem Slow transit constipation K59.01 Active 66326001 Problem 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 Active 529135037 Problem Obsessive thinking F42.8 Active 72946119 Problem Failure to thrive in adult R62.7 Active 786567807 Problem Dysthymic disorder F34.1 Active 15372175 Problem Hypertension I10 Active 18401995 Problem Mood disorder F39 Active 94335267 Problem Irritable bowel syndrome with diarrhea K58.0 Active 496632737 Problem Oropharyngeal dysphagia R13.12 Active 91382937 Problem 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 Active 86016253 Problem Other chronic pain G89.29 Active 62146314 Problem Primary insomnia F51.01 Active 0991733 Problem Poor appetite R63.0 Active 84682844 Problem Atherosclerotic heart disease of [place] 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 Active 254170433357856 Problem Iron deficiency anemia secondary to inadequate dietary iron intake D50.8 Active 506120855 Problem Coarse tremors G25.2 Active 48193030 Problem Gastroesophageal reflux disease without esophagitis K21.9 Active 492080962 Problem Essential hypertension I10 Active 62885623 ALLERGIES No Information ENCOUNTERS Encounter Location Date Diagnosis [facility] [id number] [place] [address] 74617- 2642 Jan, [facility] [id number] [place] [address] 46799- 7945 Jan, [facility] [address] [id number] Jan, Constipation, unspecified constipation type K59.00 and Other chronic pain G89.29 [facility] [address] 11306- 4750 Jan, [facility] [address] [id number] Jan, Obsessive thinking F42.8 and Coarse tremors G25.2 [facility] [address] [id number] Jan, [facility] [address] [id number] Jan, [facility] [address] [id number] Jan, Generalized anxiety disorder F41.1 ; Obsessive thinking F42.8 ; Callus of foot L84 and 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 [facility] [id number] [place] [address] 54573- 6323 Dec, Generalized anxiety disorder F41.1 and Severe episode of recurrent major depressive disorder, without psychotic features F33.2 [facility] [id number] [place] [address] 43972- 8558 Nov, [facility] [address] 09203- 9301 Nov, [facility] [address] [id number] Nov, Oropharyngeal dysphagia R13.12 ; Generalized anxiety disorder F41.1 and 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 [facility] [address] 94895- 1836 Nov, [facility] [id number] [id number] Nov, [facility] [address]005[address], [place] [address]- 3036 Nov, [facility] [address], [place] [address] 2546 Nov, [facility] [id number] [place] [address] 20279- 7208 Oct, Constipation, unspecified constipation type K59.00 and Mood disorder F39 [facility] [address] [place] [address] 88355 2546 Oct, [facility] [id number] [place] [address] [id number] Sep, [facility] [id number] [place] [address] [id number] Sep, [facility] [id number] [place] [address] [id number] Sep, [facility] [id number] [place] [address] [id number] Sep, [facility] [address] [id number] Sep, Generalized abdominal pain R10.84 [facility] [address], [place] [address]- 2546 Sep, [facility] [id number] [id number] Sep, Generalized anxiety disorder F41.1 and Primary insomnia F51.01 [facility] [id number] [id number] Aug, [facility] [id number] [address] Aug, Generalized anxiety disorder F41.1 [facility] [id number] [place] [address] 43979- 3070 Jul, [facility] [place] [address] [id number] Jul, Obsessive thinking F42.8 [facility] [address] [address] 0664 Jul, Generalized anxiety disorder F41.1 and Irritable bowel syndrome with diarrhea K58.0 [facility] [id number] [place] [address] [id number] Jul, Generalized anxiety disorder F41.1 [facility] [id number] [place] [address] [id number] Jun, Generalized anxiety disorder F41.1 [facility] [id number] [place] [address] 17664- 9066 May, [facility] [place] [address] [id number] May, Generalized anxiety disorder F41.1 ; Irritable bowel syndrome with diarrhea K58.0 and Coarse tremors G25.2 [facility] [address] [place] [address] 80343- 6425 April, [facility] [address] [place] [address] 91510- 0470 April, [facility] [address] [place] [address] 23591- 7578 April, [facility] [address] [place] [address] 45922- 1741 Mar, [facility] [place] [address] [id number] Mar, Severe episode of recurrent major depressive disorder, without psychotic features F33.2 and Pain in left hip M25.552 [facility] [address] [place] [address] 73373- 0876 Mar, [facility] [address] [place] [address] 55610- 7423 Mar, [facility] [id number] [place] [address] 69598- 3698 Mar, [facility] [id number] [place] [address] 69963- 2591 Mar, Pain in right hip M25.551 and Self-care deficit in patient living alone R46.89 [facility] [id number] [place] [address] 55601 -6145 Jan, Other chronic pain G89.29 ; Pain in left hip M25.552 and Slow transit constipation K59.01 [facility] [id number] [place] [address] 74931- 6026 Jan, [facility] [id number] [place] [address] 79056- 5971 Dec, Other depression F32.89 ; Constipation, unspecified constipation type K59.00 and Insomnia, unspecified type G47.00 [facility] [id number] [place] [address] 04715- 7450 Nov, Reactive depression F32.9 ; Chronic idiopathic constipation K59.04 ; Generalized anxiety disorder F41.1 ; Coarse tremors G25.2 ; Gastroesophageal reflux disease without esophagitis K21.9 ; Dysthymic disorder F34.1 ; Vitamin deficiency, unspecified E56.9 and Primary insomnia F51.01 [facility] [id number] [place] [address] 00908- 9017 Nov, [facility] [id number] [place] [address] 79840- 4958 Nov, [facility] [id number] [place] [address] 67058- 3622 Nov, [facility] [id number] [place] [address] 72531- 5050 Nov, Reactive depression F32.9 ; Essential hypertension I10 ; Generalized anxiety disorder F41.1 ; Atherosclerotic heart disease of [place] 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 ; Pain in right hip M25.551 ; Other chronic pain G89.29 ; Chronic idiopathic constipation K59.04 ; Primary insomnia F51.01 ; Coarse tremors G25.2 ; Gastroesophageal reflux disease without esophagitis K21.9 ; Iron deficiency anemia secondary to inadequate dietary iron intake D50.8 and Vitamin deficiency, unspecified E56.9 [facility] [id number] [place] [address] 73144- 8291 29 Oct, 2016 [facility] [address] 36729- 7832 Oct, [facility] [id number] [place] [address] 11075- 8342 Oct, [facility] [id number] [place] [address] 57625- 7107 16 Oct, 2016 Generalized anxiety disorder F41.1 ; Poor appetite R63.0 ; Dehydration E86.0 and Failure to thrive in adult R62.7 [facility] [address] 40845- 5287 07 Oct, 2016 Generalized anxiety disorder F41.1 and Failure to thrive in adult R62.7 [facility] [id number] [place] [address] 55604- 5038 Oct, [facility] [id number] [place] [address] 92721- 6907 Oct, [facility] [id number] [place] [address] 19655 -5715 Sep, Vaginal discharge N89.8 and Acute cystitis with hematuria N30.01 [facility] [id number] [place] [address] 19514- 1929 Sep, [facility] [id number] [place] [address] 74572- 3895 Sep, [facility] [id number] [place] [address] 54037- 9851 Sep, Dysthymic disorder F34.1 ; Acute vaginitis N76.0 ; Dysuria R30.0 and Vaginal yeast infection B37.3 [facility] [id number] [place] [address] 99044- 6003 Aug, [facility] [id number] [place] [address] 00258- 9324 Aug, [facility] [id number] [place] [address] 10345 -2137 Aug, Foul smelling urine R82.90 ; Rapid heart rate R00.0 and Flatulence R14.3 [facility] [id number] [place] [address] 59923- 4636 Aug, [facility] [id number] [place] [address] 70627- 3002 Jul, Constipation, unspecified constipation type K59.00 ; Weak R53.1 ; Poor appetite R63.0 ; Coronary artery disease involving [place] heart without angina pectoris, unspecified vessel or lesion type I25.10 ; Fatigue, unspecified type R53.83 ; Urinary incontinence, unspecified type R32 and Insomnia, unspecified type G47.00 [place] [place] [id number] [place] [address] 85979- 8814 Jul, [facility] [id number] [place] [address] 74868- 5084 Jun, Dysuria R30.0 [facility] [id number] [place] [address] 29572- 7893 Jun, [facility] [id number] [place] [address] 06415- 9760 Jun, Urinary tract infection, site not specified N39.0 ; Acute vaginitis N76.0 and Diarrhea, unspecified type R19.7 [facility] [id number] [place] [address] 50940- 4263 May, [facility] [id number] [place] [address] 98915- 7933 April, [facility] [address] [id number] April, Encounter for dental examination Z01.20 [facility] [id number] [place] [address] 80140- 9888 April, [facility] [id number] [place] [address] 86643- 1924 April, Tremor R25.1 and Episodic tension-type headache, not intractable G44.219 [facility] [id number] [place] [address] 29941- 1866 Mar, [facility] [id number] [place] [address] 10639- 8455 Jan, Mood disorder F39 [facility] [address] [place] [address] 16752 -2457 Jan, [facility] [id number] [place] [address] 76102- 3212 Jan, [facility] [id number] [place] [address] 84354- 9007 Jan, [facility] [id number] [place] [address] 44962- 7928 Jan, [facility] [address], [place] [address]- 7490 Jan, [facility] [id number] [place] [address] 28573- 7607 Jan, [facility] [address] [place] [address] 73816 -8562 Dec, Acute diarrhea R19.7 [facility] [id number] [place] [address] 62522- 0416 Dec, [facility] [address], [place] [address]- 7867 Dec, [facility] [id number] [place] [address] 34517- 5411 Dec, [facility] [id number] [place] [address] 18892 -6456 Dec, N&V (nausea and vomiting) R11.2 [facility] [id number] [place] [address] 04988- 0556 Dec, Generalized anxiety disorder F41.1 [facility] [address] 25747- 6840 Dec, Generalized anxiety disorder F41.1 [facility] [address] 54984- 7612 Nov, Post concussion syndrome F07.81 [facility] [address] 95010- 2823 Nov, Generalized anxiety disorder F41.1 [facility] [address] 76178- 6074 Nov, [facility] [address] 13855- 2300 Nov, Generalized anxiety disorder F41.1 [facility] [address] [id number] Oct, Dental caries K02.9 [facility] [id number] [place] [address] 77207- 1467 Oct, [facility] [address] [id number] Oct, Dental examination Z01.20 [facility] [address] [id number] Oct, Encounter for dental examination Z01.20 [facility] [id number] [place] [address] 17881- 9735 09 Oct, 2015 CAD (coronary artery disease) I25.10 [facility] [address] 90989- 8155 Sep, Generalized anxiety disorder F41.1 [facility] [id number] [place] [address] 85822- 9810 Sep, [facility] [address] 45044- 8336 Sep, Rash and other nonspecific skin eruption R21 and Yeast vaginitis B37.3 [facility] [address] 03166- 1926 Sep, Generalized anxiety disorder F41.1 [facility] [address] 34127- 0808 Aug, Insect bites 919.4 and Hemorrhoids 455.6 [facility] [address] 92495- 1996 Aug, Generalized anxiety disorder 300.02 [facility] [address] 76147- 5336 08 Aug, 2015 [facility] [address] 54827- 8839 Aug, [facility] [address] 48880- 6103 Aug, Generalized anxiety disorder 300.02 ; No condition on Fowler II V71.09 ; Heart problem 429.9 and Hypertension 401.9 [facility] [id number] [place] [address] 89253- 8898 Aug, [facility] [id number] [place] [address] 04615- 1882 Jul, [facility] [address] 10974- 8046 Jul, [facility] [id number] [place] [address] 05412- 4129 Jul, [facility] [address] 84630- 4638 Jul, [facility] [address], [place] [address]- 3980 Jul, Rash 782.1 [facility] [address] [place] [address] 18093- 1533 Jul, UTI (urinary tract infection) 599.0 [facility] [address], [place] [address]- 1096 Jul, [facility] [id number] [place] [address] 880995- 6933 Jun, Dysthymia 300.4 and Anxiety 300.00 [facility] [id number] [place] [address] 409339- 4189 Jun, 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 [facility] [address], [place] [address]- 0803 May, [facility] [address] [place] [address] 64271- 7836 May, [facility] [address] [address]- 4612 May, Unspecified breast screening V76.10 [facility] [address] [place] [address] [id number] May, Dental examination V72.2 [facility] [address], [place] [address]- 6276 April, [facility] [address], [place] [address]- 5376 April, [facility] [address] [place] [address] [id number] April, Dental examination V72.2 [facility] [address] [place] [address] [id number] April, Dental examination V72.2 [facility] [address], [place] [address]- 8136 Mar, [facility] [place] [facility] [address] [id number] [place] [address]- 3799 13 Mar, 2015 [facility] [place] [facility] [address] [id number] [place] [address]- 7136 25 Jan, 2015 [facility] [place] [facility] [address] [id number] [place] [address]- 2021 25 Jan, 2015 [facility] [place] [facility] [address] [id number] [place] [address]- 3171 18 Jan, 2015 [facility] [place] [facility] [address] [id number] [place] [address]- 7736 18 Jan, 2015 [facility] [place] [facility] [address] [id number] [place] [address]- 7810 16 Jan, 2015 [facility] [place] [facility] [address] [id number] [place] [address]- 0663 16 Jan, 2015 [facility] [place] [facility] [address] [id number] [place] [address]- 8962 13 Jan, 2015 [facility] [place] [facility] [address] [id number] [place] [address]- 0012 13 Jan, 2015 [facility] [place] [facility] [address] [id number], [place] [address]- 5398 11 Jan, 2015 [facility] [place] [facility] [address] [id number], [place] [address]- 0152 11 Jan, 2015 [facility] [place] [facility] [address] [id number], [place] [address]- 8018 11 Jan, 2015 [facility] [place] [facility] [address] [id number] [place] [address]- 4548 11 Jan, 2015 [facility] [place] [facility] [address] [id number] [place] [address]- 2320 09 Jan, 2015 [facility] [place] [facility] [address] [id number] 1317 09 Jan, 2015 [facility] [place] [facility] [address] [id number], [place] [address]- 1213 Jan, 2014 [facility] [place] [facility] [address] [id number] [place] [address]- 4466 Jan, 2014 [facility] [place] [facility] [address] [id number] [place] 4226 Jan, 2014 [facility] [place] [facility] [address] [id number] [place] [address]- 4486 Jan, 2014 [facility] [place] [facility] [address] [id number] [place] [address]- 8820 Jan, 2014 [facility] [place] [facility] [address] [id number] [place] [address]- 8049 Jan, 2014 [facility] [place] [facility] [address] [facility] [id number] [place] [address]- 5937 Jan, 2014 [facility] [place] [facility] [address] [facility] [id number] [place] [address]- 6733 Jan, 2014 [facility] [place] [facility] [address] [facility] [place] [id number] [place] [address]- 1309 Dec, [facility] [place] [facility] [address] [facility] [place] [id number] [place] [address]- 7450 Dec, [facility] [place] [facility] [id number] [place] [address]- 4036 Dec, [facility] [place] [facility] [address] [facility] [place] [id number] [place] [address]- 0383 Dec, [facility] [place] [facility] [address] [id number] [place] [address]- 9694 Nov, [facility] [place] [facility] [address] [id number] [place] 2402 Nov, [facility] [place] [facility] [address] [facility] [place] [id number] [place]- 7428 Nov, [facility] [place] [facility] [address] [facility] [place] [id number] [place] [address]- 0278 Nov, [facility] [place] [facility] [address] [id number] [place] [address]- 1533 Nov, [facility] [place] [facility] [address] [id number] [place] [address]- 4729 Nov, [facility] [place] [facility] [address] [id number] [place] [address]- 3536 Nov, [facility] [place] [facility] [address] [id number] [place] [address]- 2361 Oct, [facility] [place] [facility] [address] [id number] [place] [address]- 1977 Oct, [facility] [place] [facility] [address] [id number] [place] [address]- 1669 Oct, [facility] [place] [facility] [address] [id number] [place] [address]- 1044 Oct, [facility] [place] [facility] [address] [id number] [place] [address]- 7814 Oct, [facility] [place] [facility] [address] [id number] [place] [address]- 1004 Oct, [facility] [place] [facility] [address] [id number], [place] [address]- 3118 Oct, [facility] [place] [facility] [address] [id number], [place] [address]- 7661 Oct, [facility] [place] [facility] [address] [id number], [place] [address]- 7894 Oct, [facility] [place] [facility] [address] [id number] [place] [address] Oct, [facility] [place] [facility] [address] [id number], [place] [address] Oct, [facility] [place] [facility] [address] [id number], [place] [address] Oct, [facility] [place] [facility] [address] [id number], [place] [address] Sep, [facility] [place] [facility] [address] [id number] [place] [address] Sep, [facility] [place] [facility] [address] [id number] [place] [address] Sep, [facility] [place] [facility] [address] [id number] [place] [address] Sep, [facility] [place] [facility] [address] [id number] [place] [address] Jul, [facility] [place] [facility] [address] [id number] [place] [address] Jul, [facility] [place] [facility] [address] [id number] [place] [address] Jul, [facility] [place] [facility] [address] [id number] [place] [address] Jul, [facility] [place] [facility] [address] [id number] [place] [address] Jun, [facility] [place] [facility] [address] [id number] [place] [address] Jun, [facility] [place] [facility] [address] [id number] [place] [address] Jun, [facility] [place] [facility] [address] [id number] [place] [address] Jun, [facility] [place] [facility] [address] [id number] [place] [address] May, [facility] [place] [facility] [address] [id number] [place] [address] May, [facility] [place] [facility] [address] [id number] [place] [address] April, [facility] [place] [facility] [address] [id number] [place] [address] April, [facility] [place] [facility] [address] [id number] [place] [address] April, [facility] [place] [facility] [address] [id number] [place] [address] April, [facility] [place] [facility] [address] [id number] [place] [address] April, [facility] [place] [facility] [address] [id number] [place] [address] April, [facility] [place] [facility] [address] [id number] [place] [address] April, [facility] [place] [facility] [address] [id number] [place] [address] April, [facility] [place] [facility] [address] [id number] [place] [address] April, [facility] [place] [facility] [address] [id number] [place] [address] Mar, [facility] [place] [facility] [address] [id number] [place] [address] Mar, [facility] [place] [facility] [address] [id number] [place] [address] Mar, [facility] [place] [facility] [address] [id number] [place] [address] Mar, [facility] [place] [facility] [address] [id number] [place] [address] Jan, [facility] [place] [facility] [address] [id number] [place] [address] Jan, [facility] [place] [facility] [address] [id number] [place] [address] Jan, [facility] [place] [facility] [address] [id number] [place] [address] Jan, [facility] [place] [facility] [address] [id number] [place] [address] Jan, [facility] [place] [facility] [address] [id number] [place] [address] Jan, [facility] [place] [facility] [address] [id number] [place] [address] Jan, [facility] [place] [facility] [address] [id number] [place] [address] 69[address] Jan, [facility] [place] [facility] [address] [id number] [place] [address] 9[address] Jan, [facility] [place] [facility] [address] [id number] [place] [address] Jan, [facility] [place] [facility] [address] [id number] [place] [address] 164[address] Jan, [facility] [place] [facility] [address] [id number] [place] [address] 6285 Jan, [facility] [place] [facility] [address] [id number] [place] [address] Dec, [facility] [place] [facility] [address] [id number] [place] [address]368 Dec, [facility] [place] [facility] [address] [id number] [place] [address]278 Dec, [facility] [place] [facility] [address] [id number] [place] [address]26 Dec, [facility] [place] [facility] [address] [id number] [place] [address] 14[address] Nov, [facility] [place] [facility] [address] [id number] [place] [address] Nov, [facility] [place] [facility] [address] [id number] [place] [address] Nov, [facility] [place] [facility] [address] [id number] [place] [address] Nov, [facility] [place] [facility] [address] [id number] [place] [address] 07 Oct, 2013 [facility] [address] [id number] [place] [address] 8984 Oct, [facility] [place] [facility] [address] [id number] [place] [address] Sep, [facility] [address] [id number] [place] [address] 11[address] Sep, [facility] [place] [facility] [address] [id number] [place] [address] 28[address] Jul, [facility] [address] [id number] [place] [address] Jul, [facility] [address] [id number] [place] [address] 2498 Jun, [facility] [place] [facility] [address] [id number] [place] [address] 9[address] Jun, [facility] [address] [id number] [place] [address] 59[address] Jun, [facility] [address] [id number] [place] [address] May, [facility] [address] [id number] [place] [address] 74[address] May, [facility] [place] [facility] [address] [id number] [place] [address] 0185 May, [facility] [place] [facility] [address] [id number] [place] [address] 4[address] May, [facility] [place] [facility] [address] [id number] [place] [address] 8625 May, [facility] [place] [facility] [address] [id number] [place] [address] April, [facility] [place] [facility] [address] [id number] [place] [address] April, [facility] [address] [id number] [place] [address] April, [facility] [address] [id number] [place] [address] April, [facility] [address] [id number] [place] [address] 3747 April, [facility] [place] [facility] [address] [id number] [place] [address] 0598 April, [facility] [address] [id number] [place] [address] 3048 Mar, [facility] [place] [facility] [address] [id number] [place] [address] 1859 Mar, [facility] [address] [id number] [place] [address]396 Jan, [facility] [address] [id number] [place] [address] 4[address] Jan, [facility] [address] [id number] [place] [address] 7340 Jan, [facility] [address] [id number] [place] [address] Jan, [facility] [place] [facility] [address] [id number] [place] [address] 98[address] Jan, [facility] [place] [facility] [address] [id number], [place] [address] Jan, [facility] [place] [facility] [address] [id number] [place] [address] 279[address] Jan, [facility] [place] [facility] [address] [id number] [place] [address] 1281 Jan, [facility] [place] [facility] [address] [id number] [place] [address]- 4251 Jan, [facility] [place] [facility] [address] [id number] [place] [address] 4176 Jan, [facility] [address] [id number] [place] [address] 4656 Jan, [facility] [address] [id number] [place] [address] 8976 Dec, [facility] [address] [id number] [place] [address] 0463 Nov, [facility] [address] [id number] [place] [address] 2589 Nov, [facility] [address] [id number] [place] [address] 8165 Nov, [facility] [address] [id number] [place] [address]- 8951 Nov, [facility] [address] [id number] [place] [address]- 3015 Nov, [facility] [address] [id number] [place] [address]- 3583 Nov, [facility] [address] [id number] [place] [address] 6609 Nov, [facility] [address] [id number] [place] [address]- 5520 Nov, [facility] [address] [id number] [place] [address] 2546 Nov, [facility] [address] [id number] [place] [address]- 2540 Nov, [facility] [address] [id number] [place] [address] 4224 Nov, [facility] [address] [id number] [place] [address]- 2546 Nov, [facility] [address] [id number] [place] [address]- 6770 Nov, [facility] [place] [facility] [address] [id number] [place] [address]- 0261 Oct, [facility] [place] [facility] [address] [id number] [place] [address]- 1436 Oct, [facility] [place] [facility] [address] [id number] [place] [address]- 1116 Oct, [facility] [place] [facility] [address] [id number] [place] [address]- 9846 Sep, [facility] [place] [facility] [address] [id number] [place] [address]- 2878 Sep, [facility] [place] [facility] [address] [id number] [place] [address]- 6766 Sep, [facility] [place] [facility] [address] [facility] [id number] [place] [address]- 3922 Sep, [facility] [place] [facility] [address] [id number], [place] [address]- [address]672 Aug, [facility] [place] [facility] [address] [id number] [place] [address]- 5381 Aug, [facility] [place] [facility] [address] [facility] [id number], [place] [address]- 4726 Jul, [facility] [place] [facility] [address] [facility] [id number], [place] [address]- 8182 May, [facility] [place] [facility] [address] [id number], [place] [address]- 74[address] May, [facility] [place] [facility] [address] [id number], [place] [address]- 9799 May, [facility] [place] [facility] [address] [id number], [place] [address]- 6146 April, [facility] [place] [facility] [address] [facility] [id number], [place] [address]- 9003 Mar, [facility] [place] [facility] [address] [id number], [place] [address]- 3527 10 Mar, 2012 [facility] [address] [id number] [place] [address]- 7104 Mar, [facility] [place] [facility] [address] [id number] [place] [address]- 9656 Jan, [facility] [place] [facility] [address] [id number] [place] [address]- 4876 Jan, [facility] [place] [facility] [address] [id number] [place] [address]- 9664 Jan, [facility] [address] [id number] [place] [address], [place] [address]- 3995 Dec, [facility] [place] [facility] [address] [id number] [place] [address]- 4433 Dec, [facility] [address] [facility] [id number] [place] [address]- 3776 Dec, [facility] [place] [facility] [address] [facility] [id number] [place] [address]- 1175 Dec, [facility] [address] [facility] [place] [id number] [place] [address]- 3058 Nov, [facility] [place] [facility] [address] [facility] [place] [id number] [place] [address]- 3750 Nov, [facility] [place] [facility] [address] [facility] [id number], [place] [address]- 9581 Nov, [facility] [place] [facility] [address] [id number], [place] [address]- 1250 Oct, [facility] [place] [facility] [address] [id number] [place] [address]- 2786 31 Sep, 2011 [facility] [place] [facility] [address] [facility] [place] [id number] [place] [address]- 2663 26 Sep, 2011 [facility] [place] [facility] [address] [facility] [id number] [place] [address]- 2007 13 Sep, 2011 [facility] [place] [facility] [address] [id number] [place] [address]- 4471 15 Nov, 2010 [facility] [place] [facility] [address] [id number] [place] [address]- 1866 23 Oct, 2010 [facility] [place] [facility] [address] [id number] [place] [address] 2546 19 Oct, 2010 [facility] [place] [facility] [address] [id number] [place] [address] 2546 18 Oct, 2010 [facility] [place] [facility] [address] [id number] [place] [address] 2540 16 Oct, 2010 [facility] [place] [facility] [address] [id number] [place] [address]- 2666 11 Sep, 2010 [facility] [place] [facility] [address] [facility] [place] [id number] [place] [address]- 0644 April, [facility] [place] [facility] [address] [id number] [place] [address]- 9125 29 Nov, 2009 [facility] [place] [facility] [address] [id number] [place] [address]- 5584 24 Nov, 2009 [facility] [place] [facility] [address] [id number] [place] [address]- 2468 22 Nov, 2009 [facility] [place] [facility] [address] [facility] [id number] [place] [address]- 1478 10 Nov, 2009 [facility] [place] [facility] [address] [id number] [place] [address]- 0238 10 Nov, 2009 [facility] [place] [facility] [address] [id number] [place] [address] 2545 19 Oct, 2009 [facility] [place] [facility] [address] [id number] [place] [address] 2546 02 Oct, 2009 [facility] [place] [facility] [address] [id number] [place] [address] 2546 13 Sep, 2009 [facility] [place] [facility] [address] [id number] [place] [address] 2543 Jan, IMMUNIZATIONS No Known Immunizations SOCIAL HISTORY Never Assessed REASON FOR VISIT Care Plan meeting PLAN OF CARE Activity Details Follow Up prn Reason: VITAL SIGNS MEDICATIONS Medication Instructions Dosage Frequency Start Date End Date Duration Status Aspir-81 81 MG Orally Once a day 1 tablet 24h Nov, Active Acetaminophen 500 MG Orally every 6 hrs 1 tablets as needed 6h Nov, Active Naproxen 500 mg Orally every 12 hrs 1 tablet as needed 12h Jan, Active Melatonin 3 MG Orally Once a day 1 tablet at bedtime as needed with food 24h Nov, 30 days Active Lisinopril 5 MG Orally Once a day 1 tablet 24h Nov, 30 days Active Sertraline HCl 50 mg Orally Once a day 1 tablet 24h Active MiraLax - Orally 2 times a day 8 grams mixed with 8oz of juice or tea 12h Nov, Active Zyprexa 2.5 MG Orally twice a day 1/2 tablet 12h Active Celexa 10 mg Orally Once a day 1.5 tablets 24h Active Klonopin 0.5 MG Orally at bedtime 1 tablet May, 30 days Active Ibuprofen 200 mg Orally every 6 hrs 2 tablet as needed 6h Nov, Active Exelon 4.6 MG/24HR Transdermal Once a day 1 patch to skin 24h Active Carafate 1 GM Orally 4 times a day (Before meals and bedtime) 1 tablet on an empty stomach Nov, 30 days Active Primidone 50 MG Orally Once a day 1 tablet 24h Nov, 30 days Active Vitamin D-3 1000 UNIT Orally Once a day 2 capsules 24h Nov, 30 days Active RESULTS No Results PROCEDURES Procedure Date Ordered Result Body Site Significant Complication (25 mins) May 14, 2017 INSTRUCTIONS MEDICATIONS ADMINISTERED No Known Medications MEDICAL (GENERAL) HISTORY Type Description Date Medical History Hypertension Medical History Heart disease CABG X3 Stress test 07/2015 Medical History Gastric ulcer Medical History Hyperlipidemia Medical History Headache syndrome Medical History Psychiatric disorders-depression/racing thoughts Medical History Depression Medical History At [facility] 04/2016 Started on Eliquis Medical History Anemia 04/2016 postsurgical hip fx Surgical History right hip replacement w/ Dr. Bruce 2011 Surgical History triple bypass surgery 2003 Surgical History S/P left hip IM [facility] (Intertrechanteric hip fx) 04/28/16 Hospitalization History surgeries Hospitalization History Hypertension Hospitalization History ER for a concussion 12/24/15 Hospitalization History Intertrechanteric hip fx 04/27/16 Hospitalization History [facility] (inpatient [facility] 2 times) Hx of 3 inpatient psych treatments in past in [place] oct 2016 [facility]
--- OUTSIDE RECORDS SUMMARY | 2018-08-20 12:36 | XMS REPORT ---
Author Author WOLF AGUIRRE [facility] Address [address] [place] [address] Care Team Providers Care Force Variation Equipment Tender Name Role Phone WOLF AGUIRRE Unavailable PROBLEMS Type Condition ICD9-CM Code [id number] Code Onset Dates Condition Status SNOMED Code Problem Coarse tremors G25.2 Active 72357637 Problem Gastroesophageal reflux disease without esophagitis K21.9 Active 367246541 Problem Reactive depression F32.9 Active 80376531 Problem Irritable bowel syndrome with diarrhea K58.0 Active 851831625 Problem Vascular dementia with behavior disturbance F01.51 Active [id number] Problem Severe episode of recurrent major depressive disorder, without psychotic features F33.2 Active 77693381 Problem Constipation, unspecified constipation type K59.00 Active 57483636 Problem Sundowning F05 Active 612314316 Problem Insomnia, unspecified type G47.00 Active 264714805 Problem Essential hypertension I10 Active 09694399 Problem Slow transit constipation K59.01 Active 57403283 Problem Other chronic pain G89.29 Active 18540009 Problem Hypertension I10 Active 49104931 Problem Dysthymic disorder F34.1 Active 81462584 Problem Generalized anxiety disorder F41.1 Active 21944324 Problem Encounter for dental examination Z01.20 Active 291054577 Problem Atherosclerotic heart disease of [place] 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 Active 025640654231428 Problem Other chronic pain G89.29 Active 32237500 Problem Failure to thrive in adult R62.7 Active 023560945 Problem Primary insomnia F51.01 Active 2273330 Problem Poor appetite R63.0 Active 58834831 Problem Iron deficiency anemia secondary to inadequate dietary iron intake D50.8 Active 555681700 ALLERGIES No Information SOCIAL HISTORY Never Assessed [...] History Intertrechanteric hip fx 04/27/16 Hospitalization History [facility] oct 2016 [facility] 2016
--- OUTSIDE RECORDS SUMMARY | 2018-08-20 12:36 | XMS REPORT ---
Author Author WOLF AGUIRRE [facility] Address [address] [place] [address] Care Team Providers Care Associate Professor Of Pathology Name Role Phone WOLF AGUIRRE Unavailable PROBLEMS Type Condition ICD9-CM Code YIV45-UN Code Onset Dates Condition Status SNOMED Code Problem Sundowning F05 Active 720805444 Problem Constipation, unspecified constipation type K59.00 Active 20185321 Problem Reactive depression F32.9 Active 49253340 Problem Vascular dementia with behavior disturbance F01.51 Active 776235022264470 Problem Insomnia, unspecified type G47.00 Active 682345108 Problem Generalized anxiety disorder F41.1 Active 01436739 Problem Other chronic pain G89.29 Active 75840142 Problem Severe episode of recurrent major depressive disorder, without psychotic features F33.2 Active 95972485 Problem Slow transit constipation K59.01 Active 32248232 Problem 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 Active 769087419 Problem Obsessive thinking F42.8 Active 51570418 Problem Failure to thrive in adult R62.7 Active 780830404 Problem Dysthymic disorder F34.1 Active 15586018 Problem Hypertension I10 Active 35943334 Problem Mood disorder F39 Active 38088095 Problem Irritable bowel syndrome with diarrhea K58.0 Active 693952733 Problem Oropharyngeal dysphagia R13.12 Active 93158734 Problem 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 Active 10629456 Problem Other chronic pain G89.29 Active 62485199 Problem Primary insomnia F51.01 Active 0060072 Problem Poor appetite R63.0 Active 23052592 Problem Atherosclerotic heart disease of [place] 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 Active [id number] Problem Iron deficiency anemia secondary to inadequate dietary iron intake D50.8 Active 089403285 Problem Coarse tremors G25.2 Active 56400380 Problem Gastroesophageal reflux disease without esophagitis K21.9 Active 106803673 Problem Essential hypertension I10 Active 69899484 ALLERGIES No Information ENCOUNTERS Encounter Location Date Diagnosis [facility] [address] [place] [id number] May, [facility] [id number] [place] [address] 42450- 6083 May, [facility] [id number] [place] [address] 84136- 4456 April, [facility] [address] [place] [id number] April, Generalized anxiety disorder F41.1 ; Obsessive thinking F42.8 and Insomnia , unspecified type G47.00 [facility] [id number] [place] [address] 43206- 0166 April, [facility] [id number] [place] [address] 82879- 0350 April, Rash of face R21 [facility] [id number] [place] [address] 42459- 2885 Mar, [facility] [id number] [place] [address] 71230- 3577 Mar, [facility] [id number] [place] [address] 75973- 8454 Mar, [facility] [id number] [place] [address] 22726- 7091 Jan, [facility] [id number] [place] [address] 20427- 1423 Jan, [facility] [address] [place] [id number] Jan, Constipation, unspecified constipation type K59.00 and Other chronic pain G89.29 [facility] [id number] [place] [address] 21280- 0279 Jan, [facility] [address] [place] [id number] Jan, Obsessive thinking F42.8 and Coarse tremors G25.2 [facility] [id number] [id number] Jan, [facility] [id number] [place] [id number] Jan, [address] [id number] Jan, Generalized anxiety disorder F41.1 ; Obsessive thinking F42.8 ; Callus of foot L84 and 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 [facility] [id number] [place] [address] 02744- 3652 Dec, Generalized anxiety disorder F41.1 and Severe episode of recurrent major depressive disorder, without psychotic features F33.2 [facility] [id number] [place] [address] 18731- 4137 Nov, [facility] [id number] [place] [address] 94085- 2603 Nov, [address] [id number] Nov, Oropharyngeal dysphagia R13.12 ; Generalized anxiety disorder F41.1 and 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 [facility] [id number] [place] [address] 89067- 1777 Nov, [facility] [id number] [place] [address] [id number] Nov, [facility] [id number] [place] [address] 55578- 3513 Nov, [facility] [id number] [place] [address] 04762- 9337 Nov, [facility] [id number] [place] [address] 66731- 2673 Oct, Constipation, unspecified constipation type K59.00 and Mood disorder F39 [facility] [id number] [place] [address] 17257- 8860 Oct, [facility] [id number] [id number] Sep, [facility] [id number][place] [id number] Sep, [facility] [id number][place] [id number] Sep, [facility] [id number][place] [id number] Sep, [facility] [address] [place] [id number] Sep, Generalized abdominal pain R10.84 [facility] [id number] [address] 2546 Sep, [facility] [id number], [place] [id number] Sep, Generalized anxiety disorder F41.1 and Primary insomnia F51.01 [facility] [id number], [place] [id number] Aug, [facility] [id number][place] [id number] Aug, Generalized anxiety disorder F41.1 [facility] [address]00565100[place] [address]- 5764 Jul, [facility] [address] [place] [id number] Jul, Obsessive thinking F42.8 [facility] [address]005[address]100[place] [address]- 4423 Jul, Generalized anxiety disorder F41.1 and Irritable bowel syndrome with diarrhea K58.0 [facility] [id number], [place] [id number] Jul, Generalized anxiety disorder F41.1 [facility] [id number], [place] [id number] Jun, Generalized anxiety disorder F41.1 [facility] [address] [id number] [address] 9135 May, [facility] [address] [place] [id number] May, Generalized anxiety disorder F41.1 ; Irritable bowel syndrome with diarrhea K58.0 and Coarse tremors G25.2 [facility] [address]00565100[place], [place] [address] April, [facility] [id number] [place] [address] 93045- 7641 April, [facility] [id number] [place] [address] 26842- 0297 April, [facility] [id number] [place] [address] 18157- 3975 Mar, [facility] [address] [place] [id number] Mar, Severe episode of recurrent major depressive disorder, without psychotic features F33.2 and Pain in left hip M25.552 [facility] [id number] [place] [address] 22318- 8961 Mar, [facility] [id number] [place] [address] 26873- 8647 Mar, [facility] [id number] [place] [address] 77062- 6927 Mar, [facility] [address]00565100[place], [place] [address] 5217 Mar, Pain in right hip M25.551 and Self-care deficit in patient living alone R46.89 [facility] [address]005[address]100[place], [place] [address] Jan, Other chronic pain G89.29 ; Pain in left hip M25.552 and Slow transit constipation K59.01 [facility] [address]00565100[place], [place] [address]- 9365 Jan, [facility] [id number] [place] [address] 50069- 6063 Dec, Other depression F32.89 ; Constipation, unspecified constipation type K59.00 and Insomnia, unspecified type G47.00 [facility] [facility] [id number] [place] [address] 51686- 0961 Nov, Reactive depression F32.9 ; Chronic idiopathic constipation K59.04 ; Generalized anxiety disorder F41.1 ; Coarse tremors G25.2 ; Gastroesophageal reflux disease without esophagitis K21.9 ; Dysthymic disorder F34.1 ; Vitamin deficiency, unspecified E56.9 and Primary insomnia F51.01 [place] [facility] [id number] [place] [address] 32096- 6945 Nov, [place] [facility] [address] 07077- 7944 Nov, [place] [facility] [id number] [place] [address] 61419- 8229 Nov, [place] [facility] [id number] [place] [address] 19732- 6708 Nov, Reactive depression F32.9 ; Essential hypertension I10 ; Generalized anxiety disorder F41.1 ; Atherosclerotic heart disease of [place] 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 ; Pain in right hip M25.551 ; Other chronic pain G89.29 ; Chronic idiopathic constipation K59.04 ; Primary insomnia F51.01 ; Coarse tremors G25.2 ; Gastroesophageal reflux disease without esophagitis K21.9 ; Iron deficiency anemia secondary to inadequate dietary iron intake D50.8 and Vitamin deficiency, unspecified E56.9 [place] [facility] [id number] [place] [address] 81821- 4628 Oct, [place] [facility] [id number] [place] [address] 35969- 8271 Oct, [place] [facility] [id number] [place] [address] 61680- 2848 Oct, [place] [facility] [id number] [place] [address] 38168- 6739 Oct, Generalized anxiety disorder F41.1 ; Poor appetite R63.0 ; Dehydration E86.0 and Failure to thrive in adult R62.7 [facility] [id number] [place] [address] 80231- 1011 Oct, Generalized anxiety disorder F41.1 and Failure to thrive in adult R62.7 [facility] [id number] [place] [address] 27482- 2772 Oct, [facility] [address] 41448- 8246 Oct, [facility] [address] 42726 -9714 Sep, Vaginal discharge N89.8 and Acute cystitis with hematuria N30.01 [facility] [id number] [place] [address] 04487- 7344 Sep, [facility] [address] 31436- 7929 Sep, [facility] [id number] [place] [address] 01127- 1919 Sep, Dysthymic disorder F34.1 ; Acute vaginitis N76.0 ; Dysuria R30.0 and Vaginal yeast infection B37.3 [facility] [id number] [place] [address] 24215- 1031 Aug, [facility] [id number] [place] [address] 28891- 9715 Aug, [facility] [id number] [place] [address] 29318 -3735 Aug, Foul smelling urine R82.90 ; Rapid heart rate R00.0 and Flatulence R14.3 [facility] [id number] [place] [address] 72153- 8814 Aug, [facility] [id number] [place] [address] 01847- 6197 Jul, Constipation, unspecified constipation type K59.00 ; Weak R53.1 ; Poor appetite R63.0 ; Coronary artery disease involving [place] heart without angina pectoris, unspecified vessel or lesion type I25.10 ; Fatigue, unspecified type R53.83 ; Urinary incontinence, unspecified type R32 and Insomnia, unspecified type G47.00 [place] [address] 48661- 0308 Jul, [place] [address] 73016- 2425 Jun, Dysuria R30.0 [place] [address] 24665- 4092 Jun, [place] [address] 61415- 3593 Jun, Urinary tract infection, site not specified N39.0 ; Acute vaginitis N76.0 and Diarrhea, unspecified type R19.7 [place] [address] 21782- 5027 May, [place] [address] 73426- 5191 April, [facility] [address] [id number] April, Encounter for dental examination Z01.20 [place] [address] 85199- 8286 April, [place] [address] 02170- 6582 April, Tremor R25.1 and Episodic tension-type headache, not intractable G44.219 [place] [address] 32303- 9429 Mar, [place] [address] 93053- 1602 Jan, Mood disorder F39 [facility] [address], [place] [address] Jan, [facility] [id number] [place] [address] 36748- 3495 Jan, [facility] [address]100[place], [place] [address]- 3810 Jan, [facility] [id number] [place] [address] 15360- 4431 Jan, [facility] [id number] [place] [address] 87243- 1356 Jan, [facility] [id number] [place] [address] 42896- 8839 Jan, [facility] [id number] [place] [address] 43287 -7683 Dec, Acute diarrhea R19.7 [facility] [id number] [place] [address] 78258- 2066 Dec, [facility] [id number] [place] [address] 87376- 3107 Dec, [facility] [id number] [place] [address] 96419- 4474 Dec, [facility] [id number] [place] [address] 18444 -4458 Dec, N&V (nausea and vomiting) R11.2 [facility] [address], [place] [address]- 6251 Dec, Generalized anxiety disorder F41.1 [facility] [id number] [place] [address] 81327- 4976 Dec, Generalized anxiety disorder F41.1 [facility] [address], [place] [address]- 6573 Nov, Post concussion syndrome F07.81 [facility] [id number] [place] [address] [id number]- 4581 Nov, Generalized anxiety disorder F41.1 [facility] [id number] [place] [address] 29316- 5339 Nov, [facility] [id number] [place] [address] 272692- 0806 Nov, Generalized anxiety disorder F41.1 [facility] [id number] [place] [address] [id number] Oct, Dental caries K02.9 [facility] [address] 08314- 2094 Oct, [facility] [address] [id number] Oct, Dental examination Z01.20 [facility] [address] [id number] Oct, Encounter for dental examination Z01.20 [facility] [id number] [place] [address] 58544- 8747 Oct, CAD (coronary artery disease) I25.10 [facility] [id number] [place] [address] 85197- 5185 Sep, Generalized anxiety disorder F41.1 [facility] [id number] [place] [address] 71408- 1992 Sep, [facility] [id number] [place] [address] 33577- 8958 Sep, Rash and other nonspecific skin eruption R21 and Yeast vaginitis B37.3 [facility] [id number] [place] [address] 17191- 7096 Sep, Generalized anxiety disorder F41.1 [facility] [id number] [place] [address] 43627- 2597 17 Aug, 2015 Insect bites 919.4 and Hemorrhoids 455.6 [place] [address] [place] [address]- 2272 Aug, Generalized anxiety disorder 300.02 [facility] [id number] [place] [address] 86744- 9651 08 Aug, 2015 [facility] [id number] [place] [address] 69562- 8259 Aug, [facility] [id number] [place] [address] 34078- 5392 Aug, Generalized anxiety disorder 300.02 ; No condition on [place] II V71.09 ; Heart problem 429.9 and Hypertension 401.9 [facility] [id number] [place] [address] 83762- 7543 Aug, [facility] [id number] [place] [address] 22022- 3762 Jul, [facility] [id number] [place] [address] 64194- 2180 Jul, [facility] [id number] [place] [address] 43760- 9457 Jul, [facility] [id number] [place] [address] 00142- 8747 Jul, [facility] [id number] [place] [address] 02287- 3364 Jul, Rash 782.1 [facility] [id number] [place] [address] 60414- 9467 Jul, UTI (urinary tract infection) 599.0 [facility] [id number] [place] [address] 63894- 5981 Jul, [facility] [id number] [place] [address] 40598- 8356 Jun, Dysthymia 300.4 and Anxiety 300.00 [facility] [id number] [place] [address] 08142- 1593 Jun, 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 [facility] [address] [id number] [address]- [address] May, [facility] [address] [id number] [address]- 3866 May, [facility] [address] [facility] [id number] [address]- 2296 May, Unspecified breast screening V76.10 [facility] [address] [id number] [id number] May, Dental examination V72.2 [facility] [address] [id number], [place] [address]- 4296 April, [facility] [address] [id number] [address]- 1016 April, [facility] [address] [id number] April, Dental examination V72.2 [facility] [address] [id number] [id number] April, Dental examination V72.2 [facility] [address] [id number], [place] [address]- 9403 Mar, [facility] [address] [facility] [id number], [place] [address]- 1001 Mar, [facility] [address] [id number], [place] [address]- 6456 Jan, [facility] [address] [id number], [place] [address]- 5266 Jan, [facility] [address] [facility] [id number], [place] [address]- 9506 Jan, [facility] [address] [facility] [id number]- 1266 Jan, [facility] [address] [id number], [place] [address]- 6906 Jan, [facility] [place] [facility] [address] [id number] [place] [address]- 2220 16 Jan, 2015 [facility] [place] [facility] [address] [id number] [place] [address]- 5345 13 Jan, 2015 [facility] [place] [facility] [address] [id number] [place] [address]- 7284 13 Jan, 2014 [facility] [place] [facility] [address] [id number] [place] [address]- 7813 11 Jan, 2014 [facility] [place] [facility] [address] [id number] [place] [address]- 4832 11 Jan, 2015 [facility] [place] [facility] [address] [id number] [place] [address]- 1006 Jan, [facility] [place] [facility] [address] [id number] [place] [address]- 3260 Jan, [facility] [place] [facility] [address] [id number] [place] [address]- 8305 Jan, [facility] [place] [facility] [address] [id number] [place] [address]- 7052 Jan, [facility] [place] [facility] [address] [id number] [place] [address]- 9742 Jan, 2014 [facility] [place] [facility] [address] [id number] [place] [address]- 8730 Jan, 2014 [facility] [place] [facility] [address] [id number] [place] [address]- 5237 Jan, 2014 [facility] [place] [facility] [address] [id number] [place] [address]- 5147 Jan, 2014 [facility] [place] [facility] [address] [id number] [place] [address]- 8008 Jan, 2014 [facility] [place] [facility] [address] [id number] [place] [address]- 2318 Jan, 2014 [facility] [place] [facility] [address] [id number] [place] [address]- 1290 Jan, [facility] [place] [facility] [address] [id number] [place] [address]- 9990 Jan, [facility] [place] [facility] [address] [id number] [place] [address]- 0763 Dec, [facility] [place] [facility] [address] [id number] [place] [address]- 0159 Dec, [facility] [place] [facility] [address] [id number] [place] [address] Dec, [facility] [place] [facility] [address] [id number] [place] [address] Dec, [facility] [place] [facility] [address] [id number] [place] [address] Nov, [facility] [place] [facility] [address] [id number] [place] [address] Nov, [facility] [place] [facility] [address] [id number] [place] [address] Nov, [facility] [place] [facility] [address] [id number] [place] [address] Nov, [facility] [place] [facility] [address] [facility] [id number] [place] [address] Nov, [facility] [place] [facility] [address] [id number] [place] [address] Nov, [facility] [place] [facility] [address] [id number] [place] [address] Nov, [facility] [place] [facility] [address] [id number] [place] [address] Oct, [facility] [place] [facility] [address] [id number] [place] [address] Oct, [facility] [place] [facility] [address] [id number] [place] [address] Oct, [facility] [place] [facility] [address] [id number] [place] [address] Oct, [facility] [place] [facility] [address] [id number] [place] [address] Oct, [facility] [place] [facility] [address] [id number] [place] [address] Oct, [facility] [place] [facility] [address] [id number] [place] [address] Oct, [facility] [place] [facility] [address] [id number] [place] [address] Oct, [facility] [place] [facility] [address] [id number] [place] [address] Oct, [facility] [place] [facility] [address] [id number] [place] [address] Oct, [facility] [place] [facility] [address] [id number] [place] [address] Oct, [facility] [place] [facility] [address] [id number] [place] [address] Oct, [facility] [place] [facility] [address] [id number] [place] [id number]- 6947 Sep, [facility] [place] [facility] [address] [id number] [place] [address] Sep, [facility] [place] [facility] [address] [id number] [place] [address]44 Sep, [facility] [place] [facility] [address] [id number] [place] [address] Sep, [facility] [place] [facility] [address] [id number] [place] [address] Jul, [facility] [place] [facility] [address] [id number] [place] [address] 6693 Jul, [facility] [place] [facility] [address] [id number] [place] [address]- 6175 Jul, [facility] [place] [facility] [address] [id number] [place] [address] Jul, [facility] [place] [facility] [address] [id number] [place] [address]- 7446 Jun, [facility] [place] [facility] [address] [id number] [place] [address]- 4[address] Jun, [facility] [place] [facility] [address] [id number] [place] [address]- 6553 Jun, [facility] [place] [facility] [address] [id number] [place] [address] 7842 Jun, [facility] [place] [facility] [address] [id number] [place] [address] May, [facility] [place] [facility] [address] [id number] [place] [address]- 0040 May, [facility] [place] [facility] [address] [id number] [place] [address]- 2433 April, [facility] [place] [facility] [address] [id number] [place] [address]- 4651 April, [facility] [place] [facility] [address] [id number] [place] [address]- 1735 April, [facility] [place] [facility] [address] [id number] [place] [address]- 1032 April, [facility] [place] [facility] [address] [id number] [place] [address]- 8705 April, [facility] [place] [facility] [address] [id number] [place] [address] April, [facility] [place] [facility] [address] [id number] [place] [address] April, [facility] [place] [facility] [address] [id number] [place] [address]- 0624 April, [facility] [place] [facility] [address] [id number] [place] [address]- 8371 April, [facility] [address] [id number] [place] [address] 406[address] Mar, [facility] [place] [facility] [address] [id number] [place] [address]- 3346 Mar, [facility] [place] [facility] [address] [id number] [place] [address]- 2092 Mar, [facility] [place] [facility] [address] [id number] [place] [address]- 2768 Mar, [facility] [place] [facility] [address] [id number] [place] [address]- 9726 Jan, [facility] [place] [facility] [address] [id number] [place] [address] 6887 Jan, [facility] [place] [facility] [address] [id number] [place] [address] 5425 Jan, [facility] [place] [facility] [address] [id number] [place] [address]- 0020 Jan, [facility] [place] [facility] [address] [id number] [place] [address]- 0782 Jan, [facility] [place] [facility] [address] [id number] [place] [address]- 7223 Jan, [facility] [place] [facility] [address] [id number] [place] [address]- 5272 Jan, [facility] [place] [facility] [address] [id number] [place] [address]- 0902 Jan, [facility] [place] [facility] [address] [id number] [place] [address]- 3923 Jan, [facility] [place] [facility] [address] [id number] [place] [address]- 3536 Jan, [facility] [place] [facility] [address] [id number] [place] [address]- 9861 Jan, [facility] [place] [facility] [address] [id number] [place] [address]- 8983 Jan, [facility] [place] [facility] [address] [id number] [place] [address]- 0162 Dec, [facility] [place] [facility] [address] [id number] [place] [address]- 5798 Dec, [facility] [place] [facility] [address] [id number] [place] [address]- 4393 Dec, [facility] [place] [facility] [address] [id number] [place] [address]- 9140 Dec, [facility] [place] [facility] [address] [id number] [place] [address]- 2711 Nov, [facility] [place] [facility] [address] [id number] [place] [address]- 8182 Nov, [facility] [place] [facility] [address] [id number] [place] [address]- 6227 Nov, [facility] [place] [facility] [address] [id number] [place] [address]- 8137 Nov, [facility] [place] [facility] [address] [id number] [place] [address]- 4415 Oct, [facility] [place] [facility] [address] [id number] [address]70 Oct, [facility] [place] [facility] [address] [id number], [place] [address]80 Sep, [facility] [place] [facility] [address] [id number] [place] [address]- 7686 Sep, [facility] [place] [facility] [address] [id number], [place] [address] Jul, [facility] [place] [facility] [address] [id number] [place] [address]- 6610 Jul, [facility] [place] [facility] [address] [id number] [place] [address]- 0017 Jun, [facility] [address] [id number] [place] [address]- 5536 Jun, [facility] [address] [id number] [place] [address] 2995 Jun, [facility] [address] [id number] [place] [address]- 6927 May, [facility] [address] [id number] [place] [address]- 6612 May, [facility] [address] [id number] [place] [address] 1943 May, [facility] [address] [id number] [place] [address]- 4459 May, [facility] [address] [id number] [place] [address]- 5367 May, [facility] [address] [id number] [place] [address]- 7011 April, [facility] [address] [id number] [place] [address]- 1638 April, [facility] [address] [id number] [place] [address]- 6130 April, [facility] [address] [id number] [place] [address]- 3026 April, [facility] [address] [id number] [place] [address]- 8411 April, [facility] [place] [facility] [address] [id number] [place] [address]- 6822 April, [facility] [address] [id number] [place] [id number] [address] Mar, [facility] [address] [id number] [place] [address]- 3014 15 Mar, 2013 [facility] [place] [facility] [address] [id number] [place] [address]- 1510 Jan, [facility] [address] [id number] [place] [address]- 7221 Jan, [facility] [address] [id number] [place] [address]- 1716 Jan, [facility] [address] [id number] [place] [address]- 3265 Jan, [facility] [address] [id number] [place] [address]- 9646 Jan, [facility] [address] [id number] [place] [address]- 5679 Jan, [facility] [address] [id number] [place] [address]- 8444 Jan, [facility] [address] [id number] [place] [address]- 3619 Jan, [facility] [address] [id number] [place] [address]- 7139 Jan, [facility] [address] [facility] [id number] [place] [address]- 1052 Jan, [facility] [address] [id number] [place] [address]- 2836 Jan, [facility] [address] [id number] [place] [address]- 8889 Dec, [facility] [address] [id number] [place] [address]- 2870 Nov, [facility] [address] [id number] [place] [address]- 5791 Nov, [facility] [place] [facility] [address] [id number] [place] [address]- 9867 Nov, [facility] [address] [id number] [place] [address]- 3272 26 Nov, 2012 [facility] [place] [facility] [address] [id number] [place] [address]- 6286 21 Nov, 2012 [facility] [place] [facility] [address] [id number] [place] [address]26 20 Nov, 2012 [facility] [place] [facility] [address] [facility] [id number] [place] [address]- 6556 20 Nov, 2012 [facility] [place] [facility] [address] [id number] [place] [address]- 6731 19 Nov, 2012 [facility] [place] [facility] [address] [id number] [place] [address]- 5662 Nov, [facility] [place] [facility] [address] [facility] [id number] [place] [address]- 5719 18 Nov, 2012 [facility] [place] [facility] [address] [facility] [id number] [place] [address]- 9792 18 Nov, 2012 [facility] [place] [facility] [address] [id number] [place] [address]- 3677 Nov, [facility] [place] [facility] [address] [facility] [id number] [place] [address]- 7317 Nov, [facility] [place] [facility] [address] [facility] [id number] [place] [address]- 3673 Oct, [facility] [place] [facility] [address] [facility] [id number] [place] [address]- 3475 Oct, [facility] [place] [facility] [address] [facility] [id number], [place] [address]- 2472 Oct, [facility] [place] [facility] [address] [id number] [place] [address]- 9228 Sep, [facility] [place] [facility] [address] [facility] [id number] [place] [address]- 0421 Sep, [facility] [place] [facility] [address] [facility] [id number], [place] [address] 1946 Sep, [facility] [place] [facility] [address] [id number] [place] [address]- 0662 10 Sep, 2012 [facility] [place] [facility] [address] [id number] [place] [address]- 3132 27 Aug, 2012 [facility] [place] [facility] [address] [id number] [place] [address]- 2948 20 Aug, 2012 [facility] [place] [facility] [address] [id number] [place] [address]- 0055 24 Jul, 2012 [facility] [place] [facility] [address] [id number] [place] [address]- 6190 May, [facility] [place] [facility] [address] [id number] [place] [address]- 3029 May, [facility] [place] [facility] [address] [id number] [place] [address]- 1725 May, [facility] [place] [facility] [address] [id number] [place] [address]- 6229 April, [facility] [place] [facility] [address] [id number] [place] [address]- 8805 Mar, [facility] [place] [facility] [address] [id number] [place] [address]- 1072 Mar, [facility] [place] [facility] [address] [id number] [place] [address]- 8709 Mar, [facility] [place] [facility] [address] [id number] [place] [address]- 6493 Jan, [facility] [place] [facility] [address] [id number] [place] [address]- 8922 Jan, [facility] [place] [facility] [address] [id number] [place] [address]- 8201 Jan, [facility] [place] [facility] [address] [id number] [place] [address]- 9176 Dec, [facility] [place] [facility] [address] [id number] [place] [address]- 1274 Dec, [facility] [place] [facility] [address] [id number] [place] [address]- 2079 Dec, [facility] [place] [facility] [address] [id number] [place] [address]- 9997 Dec, [facility] [place] [facility] [address] [id number] [place] [address]- 5724 Nov, [facility] [place] [facility] [address] [id number] [place] [address]- 5714 Nov, [facility] [place] [facility] [address] [id number] [place] [address]- 7058 Nov, [facility] [place] [facility] [address] [id number] [place] [address]- 4934 Oct, [facility] [place] [facility] [address] [id number] [place] [address]- 6383 Sep, [facility] [place] [facility] [address] [id number] [place] [address]- 2873 Sep, [facility] [place] [facility] [address] [id number] [place] [address]- 4306 Sep, [facility] [place] [facility] [address] [id number] [place] [address]- 1285 Nov, [facility] [place] [facility] [address] [id number], [place] [address]- 6287 Oct, [facility] [place] [facility] [address] [id number] [place] [address]- 7880 Oct, [facility] [place] [facility] [address] [id number] [place] [address]- 5496 18 Oct, 2010 [facility] [place] [facility] [address] [id number] [place] [address]- 3142 16 Oct, 2010 [facility] [place] [facility] [address] [id number] [place] [address]- 3906 11 Sep, 2010 [facility] [place] [facility] [address] [id number] [address] 3059 April, [facility] [address] [id number], [place] [address]- 4105 Nov, [facility] [id number], [place] [address]- 3055 Nov, [facility] [id number], [place] [address]- 0947 Nov, [facility] [id number], [place] [address]- 8821 Nov, [facility] [id number] [place] [address] 8231 Nov, [facility] [id number], [place] [address]- 5382 Oct, [facility] [id number], [place] [address]- 2887 Oct, [facility] [address] [id number], [place] [address]- 6871 Sep, [facility] [id number], [place] [address]- 4562 Jan, IMMUNIZATIONS No Known Immunizations SOCIAL HISTORY Never Assessed REASON FOR VISIT Controlled Med Refill PLAN OF CARE VITAL SIGNS MEDICATIONS Medication Instructions Dosage Frequency Start Date End Date Duration Status Klonopin 0.5 MG Orally at bedtime 1 tablet 28 Active RESULTS No Results PROCEDURES No Known procedures INSTRUCTIONS MEDICATIONS ADMINISTERED No Known Medications MEDICAL (GENERAL) HISTORY Type Description Date Medical History Hypertension Medical History Heart disease CABG X3 Stress test 07/2015 Medical History Gastric ulcer Medical History Hyperlipidemia Medical History Headache syndrome Medical History Psychiatric disorders-depression/racing thoughts Medical History Depression Medical History At [facility] 04/2016 Started on Eliquis Medical History Anemia 04/2016 postsurgical hip fx Surgical History right hip replacement w/ Dr. Bruce 2011 Surgical History triple bypass surgery 2003 Surgical History S/P left hip IM Nail (Intertrechanteric hip fx) 04/28/16 Hospitalization History surgeries Hospitalization History Hypertension Hospitalization History ER for a concussion 11/24/15 Hospitalization History Intertrechanteric hip fx 04/27/16 Hospitalization History [facility] (inpatient [facility] 2 times) Hx of 3 inpatient psych treatments in past in [place] oct 2016 [facility]
--- OUTSIDE RECORDS SUMMARY | 2018-08-20 12:37 | XMS REPORT ---
Author Author WOLF AGUIRRE [facility] Address [address] [place] [address] Care Team Providers Care Car Park Attendant Name Role Phone WOLF AGUIRRE Unavailable PROBLEMS Type Condition ICD9-CM Code OHL91-DS Code Onset Dates Condition Status SNOMED Code Problem Sundowning F05 Active 114432619 Problem Constipation, unspecified constipation type K59.00 Active 58512012 Problem Reactive depression F32.9 Active 17200758 Problem Vascular dementia with behavior disturbance F01.51 Active 678680506347830 Problem Insomnia, unspecified type G47.00 Active 100640445 Problem Generalized anxiety disorder F41.1 Active 29983759 Problem Other chronic pain G89.29 Active 25847406 Problem Severe episode of recurrent major depressive disorder, without psychotic features F33.2 Active 78406351 Problem Slow transit constipation K59.01 Active 30783846 Problem 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 Active 574410275 Problem Obsessive thinking F42.8 Active 64140223 Problem Failure to thrive in adult R62.7 Active 790666249 Problem Dysthymic disorder F34.1 Active 47977119 Problem Hypertension I10 Active 81047682 Problem Mood disorder F39 Active 20848693 Problem Irritable bowel syndrome with diarrhea K58.0 Active 764743716 Problem Oropharyngeal dysphagia R13.12 Active 76489021 Problem 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 Active 69116400 Problem Other chronic pain G89.29 Active 17083609 Problem Primary insomnia F51.01 Active 2972201 Problem Poor appetite R63.0 Active 14535698 Problem Atherosclerotic heart disease of [place] 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 Active 851820424394882 Problem Iron deficiency anemia secondary to inadequate dietary iron intake D50.8 Active 881392715 Problem Coarse tremors G25.2 Active 59858001 Problem Gastroesophageal reflux disease without esophagitis K21.9 Active 636347403 Problem Essential hypertension I10 Active 68575116 ALLERGIES No Information ENCOUNTERS Encounter Location Date Diagnosis [facility] [id number] [place] [address] 07130- 7700 Mar, [facility] [id number] [place] [address] 78666- 1200 Mar, [facility] [id number] [place] [address] 18781- 8716 Mar, [place] [address] 10410- 1479 Jan, [place] [id number] [place] [address] 02958- 1220 Jan, [facility] [address] [id number] Jan, Constipation, unspecified constipation type K59.00 and Other chronic pain G89.29 [place] [address] 78376- 3120 Jan, [facility] [address] [id number] Jan, Obsessive thinking F42.8 and Coarse tremors G25.2 [place] [id number] [place] [address] [id number] Jan, [place] [id number] [place] [address] [id number] Jan, [facility] [address] [id number] Jan, Generalized anxiety disorder F41.1 ; Obsessive thinking F42.8 ; Callus of foot L84 and 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 [place] [id number] [place] [address] 35924- 4987 Dec, Generalized anxiety disorder F41.1 and Severe episode of recurrent major depressive disorder, without psychotic features F33.2 [facility] [facility] [id number] [place] [address] 88267- 7273 Nov, [place] [address] [address]- 3776 Nov, [facility] [place] [address] [id number] Nov, Oropharyngeal dysphagia R13.12 ; Generalized anxiety disorder F41.1 and 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 [facility] [address]279 Nov, [facility] [id number] [id number] Nov, [facility] [address] 3818 Nov, [facility] [address] 6960 Nov, [facility] [address], [place] [address]- 6357 Oct, Constipation, unspecified constipation type K59.00 and Mood disorder F39 [facility] [address] [address] 8466 Oct, [facility] [id number] [id number] Sep, [facility] [id number] [address] Sep, [facility] [id number][place] [address] Sep, [facility] [id number] [address] Sep, [facility] [place] [address] [address] Sep, Generalized abdominal pain R10.84 [facility] [id number], [place] [address]- 7206 Sep, [facility] [id number][place] [address] Sep, Generalized anxiety disorder F41.1 and Primary insomnia F51.01 [facility] [id number][place] [id number] Aug, [facility] [id number] [address] Aug, Generalized anxiety disorder F41.1 [facility] [address]005[address]100[place], [place] [address]- 3236 Jul, [facility] [address] [id number] Jul, Obsessive thinking F42.8 [facility] [address] [address] 5903 Jul, Generalized anxiety disorder F41.1 and Irritable bowel syndrome with diarrhea K58.0 [facility] [id number][place] [address] Jul, Generalized anxiety disorder F41.1 [facility] [id number] [place] [address] [id number] Jun, Generalized anxiety disorder F41.1 [facility] [address], [place] [address]- 8734 May, [facility] [address] [id number] May, Generalized anxiety disorder F41.1 ; Irritable bowel syndrome with diarrhea K58.0 and Coarse tremors G25.2 [facility] [address]005[address], [place] [address]- 1509 April, [facility] [address], [place] [address]- 9347 April, [facility] [address], [place] [address]- 9139 April, [facility] [id number], [place] [address]- 0063 Mar, [facility] [address] [id number] Mar, Severe episode of recurrent major depressive disorder, without psychotic features F33.2 and Pain in left hip M25.552 [facility] [id number] [place] [address] 60917- 1300 Mar, [facility] [id number] [place] [address] 22699- 4478 Mar, [facility] [id number] [place] [address] 26599- 5512 Mar, [facility] [id number] [place] [address] 15016- 0549 Mar, Pain in right hip M25.551 and Self-care deficit in patient living alone R46.89 [facility] [id number] [place] [address] 36626 -4329 Jan, Other chronic pain G89.29 ; Pain in left hip M25.552 and Slow transit constipation K59.01 [facility] [id number] [place] [address] 25466- 3315 Jan, [facility] [id number] [place] [address] 43451- 0853 Dec, Other depression F32.89 ; Constipation, unspecified constipation type K59.00 and Insomnia, unspecified type G47.00 [facility] [id number] [place] [address] 36705- 6314 Nov, Reactive depression F32.9 ; Chronic idiopathic constipation K59.04 ; Generalized anxiety disorder F41.1 ; Coarse tremors G25.2 ; Gastroesophageal reflux disease without esophagitis K21.9 ; Dysthymic disorder F34.1 ; Vitamin deficiency, unspecified E56.9 and Primary insomnia F51.01 [facility] [id number] [place] [address] 08721- 9092 Nov, [place] [id number] [place] [address] 51163- 5033 Nov, [place] [id number] [place] [address]- 2582 Nov, [facility] [id number] [place] [address] 73436- 7645 Nov, Reactive depression F32.9 ; Essential hypertension I10 ; Generalized anxiety disorder F41.1 ; Atherosclerotic heart disease of [place] 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 ; Pain in right hip M25.551 ; Other chronic pain G89.29 ; Chronic idiopathic constipation K59.04 ; Primary insomnia F51.01 ; Coarse tremors G25.2 ; Gastroesophageal reflux disease without esophagitis K21.9 ; Iron deficiency anemia secondary to inadequate dietary iron intake D50.8 and Vitamin deficiency, unspecified E56.9 [facility] [id number] [place] [address] 99915- 4904 Oct, [place] [address] 33669- 3500 Oct, [facility] [address] 12128- 2484 Oct, [facility] [id number] [place] [address] 27887- 3199 Oct, Generalized anxiety disorder F41.1 ; Poor appetite R63.0 ; Dehydration E86.0 and Failure to thrive in adult R62.7 [facility] [id number] [place] [address] 62473- 2576 Oct, Generalized anxiety disorder F41.1 and Failure to thrive in adult R62.7 [facility] [id number] [place] [address] 57437- 6243 Oct, [facility] [address] 22247- 8239 Oct, [facility] [id number] [place] [address] 63391 -9637 Sep, Vaginal discharge N89.8 and Acute cystitis with hematuria N30.01 [place] [address] [place] [address]- 7750 Sep, [facility] [id number] [place] [address] 25271- 8853 Sep, [facility] [id number] [place] [address] 70871- 3669 Sep, Dysthymic disorder F34.1 ; Acute vaginitis N76.0 ; Dysuria R30.0 and Vaginal yeast infection B37.3 [facility] [id number] [place] [address] 56834- 1794 Aug, [facility] [address] 14912- 8649 Aug, [facility] [id number] [place] [address] 53289 -8318 Aug, Foul smelling urine R82.90 ; Rapid heart rate R00.0 and Flatulence R14.3 [place] [id number] [place] [address] 71341- 6722 Aug, [facility] [id number] [place] [address] 46868- 0478 Jul, Constipation, unspecified constipation type K59.00 ; Weak R53.1 ; Poor appetite R63.0 ; Coronary artery disease involving [place] heart without angina pectoris, unspecified vessel or lesion type I25.10 ; Fatigue, unspecified type R53.83 ; Urinary incontinence, unspecified type R32 and Insomnia, unspecified type G47.00 [facility] [id number] [place] [address] 25234- 2509 Jul, [facility] [id number] [place] [address] 03586- 5314 Jun, Dysuria R30.0 [place] [id number] [place] [address] 85373- 0930 Jun, [facility] [id number] [place] [address] 54890- 3146 Jun, Urinary tract infection, site not specified N39.0 ; Acute vaginitis N76.0 and Diarrhea, unspecified type R19.7 [facility] [id number] [place] [address] 64170- 5584 May, [facility] [id number] [place] [address] 25969- 3588 April, [facility] [id number] [place] [address] [id number] April, Encounter for dental examination Z01.20 [facility] [id number] [place] [address] 62891- 0920 April, [facility] [id number] [place] [address] 78882- 7962 April, Tremor R25.1 and Episodic tension-type headache, not intractable G44.219 [facility] [id number] [place] [address] 29938- 5627 Mar, [facility] [id number] [place] [address] 79226- 5066 Jan, Mood disorder F39 [facility] [id number] [place] [address] 75326 -6866 Jan, [facility] [id number] [place] [address] 58044- 2845 Jan, [facility] [id number] [place] [address] 35343- 3885 Jan, [facility] [id number] [place] [address] 30110- 8916 Jan, [facility] [id number] [place] [address] 45425- 4797 Jan, [facility] [id number] [place] [address] 14274- 2331 Jan, [facility] [id number] [place] [address] 97571 -1665 Dec, Acute diarrhea R19.7 [facility] [id number] [place] [address] 01570- 9777 Dec, [facility] [id number] [place] [address] 43714- 0995 Dec, [facility] [id number] [place] [address] 13474- 8456 Dec, [facility] [id number] [place] [address] 32100 -3223 Dec, N&V (nausea and vomiting) R11.2 [facility] [id number] [place] [address] 08319- 1929 Dec, Generalized anxiety disorder F41.1 [facility] [id number] [place] [address] 96408- 2334 Dec, Generalized anxiety disorder F41.1 [facility] [id number] [place] [address] 76890- 0909 Nov, Post concussion syndrome F07.81 [facility] [address] 19847- 7641 Nov, Generalized anxiety disorder F41.1 [facility] [id number] [place] [address] 68065- 7582 Nov, [facility] [id number] [place] [address] 83788- 3830 Nov, Generalized anxiety disorder F41.1 [facility] [address] [place] [address] [id number] Oct, Dental caries K02.9 [facility] [id number] [place] [address] 86915- 9959 Oct, [facility] [address] [place] [address] [id number] Oct, Dental examination Z01.20 [facility] [id number] [place] [address] [id number] 10 Oct, 2015 Encounter for dental examination Z01.20 [facility] [address] 25501- 3767 Oct, CAD (coronary artery disease) I25.10 [facility] [address] 45311- 2577 Sep, Generalized anxiety disorder F41.1 [facility] [address] 20325- 1691 Sep, [facility] [address] 19173- 1487 Sep, Rash and other nonspecific skin eruption R21 and Yeast vaginitis B37.3 [place] [address] 45515- 1758 Sep, Generalized anxiety disorder F41.1 [facility] [address] 18014- 4041 Aug, Insect bites 919.4 and Hemorrhoids 455.6 [facility] [address] 65167- 7079 Aug, Generalized anxiety disorder 300.02 [facility] [id number] [place] [address] 44956- 2032 08 Aug, 2015 [facility] [address] 48461- 1062 Aug, [facility] [address] 44829- 6566 Aug, Generalized anxiety disorder 300.02 ; No condition on Bartlett II V71.09 ; Heart problem 429.9 and Hypertension 401.9 [facility] [id number] [place] [address] 52157- 0980 Aug, [facility] [address] 52690- 3636 Jul, [facility] [id number] [address]- 0571 Jul, [facility] [address], [place] [address]- 9319 Jul, [facility] [address], [place] [address]- 3081 Jul, [facility] [address] [place] [address] 30424- 8360 Jul, Rash 782.1 [facility] [address] [place] [address] 75584- 7181 Jul, UTI (urinary tract infection) 599.0 [facility] [address] [address]- 3362 Jul, [facility] [address] [place] [address] 34670- 2170 Jun, Dysthymia 300.4 and Anxiety 300.00 [facility] [address], [place] [address]- 6154 Jun, 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 [facility] [address], [place] [address]- 0503 May, [facility] [address], [place] [address]- 5244 May, [facility] [id number] [address]- 9526 May, Unspecified breast screening V76.10 [facility] [address] [id number] [id number] May, Dental examination V72.2 [facility] [address], [place] [address]- 0169 April, [facility] [id number] [address]- 7400 April, [facility] [place] [facility] [address] [id number] [id number] April, Dental examination V72.2 [facility] [address] [id number] [id number] April, Dental examination V72.2 [facility] [address] [id number], [place] [address]- 9812 14 Mar, 2015 [facility] [place] [facility] [address] [id number] [address]- 3971 Mar, [facility] [place] [facility] [address] [id number] [place] [address]- 2533 25 Jan, 2015 [facility] [place] [facility] [address] [id number] [address]- 5616 25 Jan, 2015 [facility] [place] [facility] [address] [id number] [address]- 0701 18 Jan, 2015 [facility] [place] [facility] [address] [id number], [place] [address]- 7719 18 Jan, 2015 [facility] [place] [facility] [address] [id number] [address]- 1764 16 Jan, 2015 [facility] [place] [facility] [address] [id number] [address]- 1563 16 Jan, 2015 [facility] [place] [facility] [address] [id number] [address]- 0098 13 Jan, 2015 [facility] [place] [facility] [address] [id number], [place]- 0256 13 Jan, 2015 [facility] [place] [facility] [address] [id number] 435[place]- 7627 11 Jan, 2015 [facility] [place] [facility] [address] [id number]- 0906 11 Jan, 2015 [facility] [place] [facility] [address] [id number], [place]466- 2353 11 Jan, 2015 [facility] [place] [facility] [address] [id number] [address]- 9218 Jan, [facility] [place] [facility] [address] [id number] [place] [address]- 7588 Jan, [facility] [place] [facility] [address] [id number] [place] [address]- 7428 Jan, [facility] [place] [facility] [address] [id number] [place] [address]- 7753 Jan, 2014 [facility] [place] [facility] [address] [id number] [place] [address]- 7049 Jan, 2014 [facility] [place] [facility] [address] [id number] [place] [address]- 0504 Jan, 2014 [facility] [place] [facility] [address] [id number] [place] [address]- 5033 Jan, 2014 [facility] [place] [facility] [address] [facility] [id number] [place] [address]- 9383 Jan, [facility] [place] [facility] [address] [facility] [id number] [place] [address]- 9494 Jan, [facility] [place] [facility] [address] [facility] [id number] [place] [address]- 1592 Jan, [facility] [place] [facility] [address] [facility] [id number] [place] [address]- 9973 Jan, [facility] [place] [facility] [address] [facility] [id number] [place] [address]- 3088 Dec, [facility] [place] [facility] [address] [id number] [place] [address]- 8540 Dec, [facility] [place] [facility] [address] [id number] [place] [address]- 2938 Dec, [facility] [place] [facility] [address] [facility] [id number] [place] [address]- 9103 Dec, [facility] [place] [facility] [address] [facility] [id number] [place] [address] Nov, [facility] [place] [facility] [address] [id number] [place] [address] Nov, [facility] [place] [facility] [address] [id number] [place] [address] Nov, [facility] [place] [facility] [address] [id number] [place] [address] Nov, [facility] [place] [facility] [address] [id number] [place] [address] Nov, [facility] [place] [facility] [address] [id number] [place] [address] Nov, [facility] [place] [facility] [address] [id number] [place] [address] Nov, [facility] [place] [facility] [address] [id number] [place] [address] Oct, [facility] [place] [facility] [address] [id number] [place] [address] Oct, [facility] [place] [facility] [address] [id number] [place] [address] Oct, [facility] [place] [facility] [address] [id number] [place] [address] Oct, [facility] [place] [facility] [address] [id number] [place] [address] Oct, [facility] [place] [facility] [address] [id number] [address] Oct, [facility] [place] [facility] [address] [id number] [place] [address] Oct, [facility] [place] [facility] [address] [id number] [place] [address] Oct, [facility] [place] [facility] [address] [id number], [place] [address] Oct, [facility] [place] [facility] [address] [id number], [place] [address] Oct, [facility] [place] [facility] [address] [id number] [place] [address] Oct, [facility] [place] [facility] [address] [id number] [place] [address] Oct, [facility] [place] [facility] [address] [id number] [place] [address]- [address] Sep, [facility] [place] [facility] [address] [id number] [place] [address] Sep, [facility] [place] [facility] [address] [id number] [place] [address] Sep, [facility] [place] [facility] [address] [id number] [place] [address]- [address] Sep, [facility] [place] [facility] [address] [id number] [place] [address] Jul, [facility] [place] [facility] [address] [id number] [place] [address] Jul, [facility] [place] [facility] [address] [id number] [place] [address] Jul, [facility] [place] [facility] [address] [facility] [id number] [place] [address] Jul, [facility] [place] [facility] [address] [id number] [place] [address] Jun, [facility] [place] [facility] [address] [id number] [place] [address]- [address] Jun, [facility] [place] [facility] [address] [id number] [place] [address] Jun, [facility] [place] [facility] [address] [id number] [place] [address] Jun, [facility] [place] [facility] [address] [facility] [id number] [place] [address] May, [facility] [place] [facility] [address] [id number] [place] [address] May, [facility] [place] [facility] [address] [id number] [place] [address] April, [facility] [place] [facility] [address] [id number] [place] [address] April, [facility] [place] [facility] [address] [id number] [place] [place] [address] April, [facility] [place] [facility] [address] [id number] [place] [address] April, [facility] [place] [facility] [address] [id number] [place] [address] April, [facility] [place] [facility] [address] [id number] [place] [address] April, [facility] [place] [facility] [address] [id number] [place] [address] April, [facility] [place] [facility] [address] [id number] [place] [address] April, [facility] [place] [facility] [address] [id number] [place] [address] April, [facility] [place] [facility] [address] [id number] [place] [address] Mar, [facility] [place] [facility] [address] [id number] [place] [address]160 Mar, [facility] [place] [facility] [address] [id number] [place] [address] Mar, [facility] [place] [facility] [address] [id number] [place] [address] 269[address] Mar, [facility] [place] [facility] [address] [id number] [place] [address] Jan, [facility] [place] [facility] [address] [id number] [place] [address] 8317 Jan, [facility] [place] [facility] [address] [id number] [place] [address]- [address] Jan, [facility] [place] [facility] [address] [id number] [place] [address]- 4[address] Jan, [facility] [place] [facility] [address] [id number] [place] [address]- 7[address] Jan, [facility] [place] [facility] [address] [id number] [place] [address]- 42[address] Jan, [facility] [place] [facility] [address] [id number] [place] [address]- 0905 Jan, [facility] [place] [facility] [address] [id number] [place] [address]- 9812 Jan, [facility] [place] [facility] [address] [id number] [place] [address]- 56[address] Jan, [facility] [place] [facility] [address] [id number] [place] [address]- 64[address] Jan, [facility] [place] [facility] [address] [id number] [place] [address]- 2820 Jan, [facility] [place] [facility] [address] [id number] [place] [address]- 1340 Jan, [facility] [place] [facility] [address] [id number] [place] [address]- 3530 Dec, [facility] [place] [facility] [address] [id number] [place] [address]- 2983 Dec, [facility] [place] [facility] [address] [id number] [place] [address]- 1272 Dec, [facility] [place] [facility] [address] [id number] [place] [address]- [address] Dec, [facility] [place] [facility] [address] [id number] [place] [address]- 9818 Nov, [facility] [place] [facility] [address] [id number] [place] [address]- 4646 Nov, [facility] [address] [id number] [place] [address]- 9[address] Nov, [facility] [place] [facility] [address] [id number] [place] [address] Nov, [facility] [address] [id number] [place] [address]- 5436 Oct, [facility] [place] [facility] [address] [id number] [place] [address]- 3257 Oct, [facility] [address] [id number] [place] [address]- 455[address] Sep, [facility] [address] [id number] [place] [address]- 0669 Sep, [facility] [address] [id number] [place] [address]- 9028 Jul, [facility] [address] [id number] [place] [address] Jul, [facility] [address] [id number] [place] [address]- 6189 Jun, [facility] [address] [id number] [place] [address]- 1517 Jun, [facility] [place] [facility] [address] [id number] [place] [address]- 8[address] Jun, [facility] [place] [facility] [address] [id number] [place] [address]- 1480 May, [facility] [place] [facility] [address] [id number] [place] [address]- 4834 May, [facility] [place] [facility] [address] [id number] [place] [address]- [address]46 17 May, 2013 [facility] [place] [facility] [address] [id number] [place] [address]- 6393 May, [facility] [address] [id number] [place] [address]- 4704 May, [facility] [place] [facility] [address] [id number] [place] [address]- [address] April, [facility] [address] [id number] [place] [address]- 2686 April, [facility] [place] [facility] [address] [id number] [place] [address]- 9829 April, [facility] [address] [id number] [place] [address]- 7669 April, [facility] [place] [facility] [address] [id number] [place] [address] April, [facility] [address] [id number] [place] [address]- 2599 April, [facility] [address] [id number] [place] [address]- 0120 Mar, [facility] [place] [facility] [address] [id number] [place] [address]- 6811 Mar, [facility] [address] [id number] [place] [address]- 2901 Jan, [facility] [place] [facility] [address] [id number] [place] [address]- 3573 Jan, [facility] [place] [facility] [address] [id number] [address]- 9260 Jan, [facility] [place] [facility] [address] [id number] [place] [address]- 9868 Jan, [facility] [place] [facility] [address] [id number] [place] [address]- 6574 Jan, [facility] [place] [facility] [address] [id number] [place] [address]- 3574 Jan, [facility] [place] [facility] [address] [id number] [place] [address]- 9972 05 Jan, 2012 [facility] [address] [id number] [place] [address]- [address] 04 Jan, 2012 [facility] [address] [id number] [place] [address] 2546 Jan, 2012 [facility] [address] [id number] [place] [address] 2546 Jan, 2012 [facility] [address] [id number] [place] [address] 2546 Jan, [facility] [address] [id number] [place] [address]- 6938 Dec, [facility] [address] [id number] [place] [address]- 6028 Nov, [facility] [address] [id number] [place] [address]- 9516 Nov, [facility] [address] [id number] [place] [address]- 4367 Nov, [facility] [address] [id number] [place] [address]- 1894 Nov, [facility] [address] [facility] [id number] [place] [address]- 2540 Nov, [facility] [address] [id number] [place] [address] 2546 Nov, [facility] [address] [id number] [place] [address] 2546 Nov, [facility] [address] [id number] [place] [address] 2546 Nov, [facility] [address] [id number] [place] [address]- 2546 Nov, [facility] [address] [facility] [id number] [place] [address]- 0844 18 Nov, 2012 [facility] [place] [facility] [address] [id number] [place] [address]- 7813 18 Nov, 2012 [facility] [place] [facility] [address] [id number] [place] [address]- 9906 Nov, [facility] [place] [facility] [address] [id number] [place] [address]- 2970 Nov, [facility] [place] [facility] [address] [id number] [place] [address]- 9346 Oct, [facility] [place] [facility] [address] [id number] [place] [address]- 6417 Oct, [facility] [place] [facility] [address] [id number] [place] [address]- 8546 Oct, [facility] [place] [facility] [address] [facility] [id number] [place] [address]- 0592 Sep, [facility] [place] [facility] [address] [id number] [place] [address]- 9263 Sep, [facility] [place] [facility] [address] [facility] [id number] [place] [address]- 5144 Sep, [facility] [place] [facility] [address] [facility] [id number] [address]- 7990 Sep, [facility] [place] [facility] [address] [facility] [id number], [place] [address]- 4688 27 Aug, 2012 [facility] [place] [facility] [address] [id number], [place] [address]- 8492 20 Aug, 2012 [facility] [place] [facility] [address] [id number] [place] [address]- 7634 24 Jul, 2012 [facility] [place] [facility] [address] [id number] [address]- 3806 27 May, 2012 [facility] [place] [facility] [address] [facility] [id number] [address]- 3698 14 May, 2012 [facility] [place] [facility] [address] [id number] [address]- 3651 14 May, 2012 [facility] [address] [id number] [place] [address]- 4156 April, [facility] [place] [facility] [address] [id number] [place] [address]- 3851 Mar, [facility] [place] [facility] [address] [id number] [place] [address]- 9262 Mar, [facility] [place] [facility] [address] [id number] [place] [address]- 6139 Mar, [facility] [address] [id number] [place] [address]- 2545 Jan, [facility] [place] [facility] [address] [id number] [place] [address]- 5067 Jan, [facility] [address] [id number] [place] [address]- 9182 Jan, [facility] [place] [facility] [address] [id number] [place] [address]- 3874 Dec, [facility] [address] [id number] [place] [address]- 2745 Dec, [facility] [place] [facility] [address] [facility] [id number] [place] [address]- 1782 Dec, [facility] [address] [id number] [place] [address]- 6632 Dec, [facility] [place] [facility] [address] [id number] [place] [address]- 1421 Nov, [facility] [place] [facility] [address] [id number] [place] [address]- 1910 15 Nov, 2011 [facility] [place] [facility] [address] [id number] [place] [address]- 3003 Nov, [facility] [place] [facility] [address] [facility] [id number] [place] [address]- 9639 Oct, [facility] [place] [facility] [address] [id number] [place] [address]- 2337 31 Sep, 2011 [facility] [place] [facility] [address] [id number] [place] [address]- 1476 26 Sep, 2011 [facility] [place] [facility] [address] [id number] [place] [address]- 1086 13 Sep, 2011 [facility] [place] [facility] [address] [id number] [place] [address]- 0946 15 Nov, 2010 [facility] [place] [facility] [address] [id number] [place] [address]- 2365 23 Oct, 2010 [facility] [place] [facility] [address] [id number] [place] [address]- 1236 Oct, [facility] [place] [facility] [address] [id number] [place] [address]- 3237 18 Oct, 2010 [facility] [place] [facility] [address] [id number] [place] [address]- 5876 16 Oct, 2010 [facility] [place] [facility] [address] [id number] [place] [address]- 4039 Sep, [facility] [place] [facility] [address] [id number] [place] [address]- 9828 April, [facility] [place] [facility] [address] [id number] [place] [address]- 1201 29 Nov, 2009 [facility] [place] [facility] [address] [id number] [place] [address]- 2060 24 Nov, 2009 [facility] [place] [facility] [address] [id number] [place] [address]- 2548 22 Nov, 2009 [facility] [place] [facility] [address] [id number] [place] [address] 2546 10 Nov, 2009 [facility] [place] [facility] [address] [id number] [place] [address]- 2546 Nov, [facility] [place] [facility] [address] [id number] [place] [address]- 2544 Oct, [facility] [address] [facility] [id number] [place] [address]- 8126 Oct, [facility] [address] [facility] [id number] [place] [address]- 2546 Sep, [facility] [address] [facility] [id number] [place] [address]- 4286 Jan, IMMUNIZATIONS No Known Immunizations SOCIAL HISTORY Never Assessed REASON FOR VISIT FYI only PLAN OF CARE VITAL SIGNS MEDICATIONS Unknown Medications RESULTS No Results PROCEDURES No Known procedures INSTRUCTIONS MEDICATIONS ADMINISTERED No Known Medications MEDICAL (GENERAL) HISTORY Type Description Date Medical History Hypertension Medical History Heart disease CABG X3 Stress test 07/2015 Medical History Gastric ulcer Medical History Hyperlipidemia Medical History Headache syndrome Medical History Psychiatric disorders-depression/racing thoughts Medical History Depression Medical History At [facility] 04/2016 Started on Eliquis Medical History Anemia 04/2016 postsurgical hip fx Surgical History right hip replacement w/ Dr. Bruce 2011 Surgical History triple bypass surgery 2003 Surgical History S/P left hip IM Nail (Intertrechanteric hip fx) 04/28/16 Hospitalization History surgeries Hospitalization History Hypertension Hospitalization History ER for a concussion 11/24/15 Hospitalization History Intertrechanteric hip fx 04/27/16 Hospitalization History [facility] ([facility]patient [facility] 2 times) Hx of 3 inpatient psych treatments in past in [place] oct 2016 [facility]
--- OUTSIDE RECORDS SUMMARY | 2018-08-20 12:38 | XMS REPORT ---
Author Author WOLF AGUIRRE [facility] Address [address] [place] [address] Care Team Providers Care Bathing Suit Maker Name Role Phone WOLF AGUIRRE Unavailable PROBLEMS Type Condition ICD9-CM Code [id number] Code Onset Dates Condition Status SNOMED Code Problem Sundowning F05 Active 747940229 Problem Constipation, unspecified constipation type K59.00 Active 30113071 Problem Reactive depression F32.9 Active 73659703 Problem Vascular dementia with behavior disturbance F01.51 Active 113320023980075 Problem Insomnia, unspecified type G47.00 Active 135455166 Problem Generalized anxiety disorder F41.1 Active 97338123 Problem Other chronic pain G89.29 Active 24101698 Problem Severe episode of recurrent major depressive disorder, without psychotic features F33.2 Active 02369138 Problem Slow transit constipation K59.01 Active 04122844 Problem 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 Active 023755574 Problem Obsessive thinking F42.8 Active 32821409 Problem Failure to thrive in adult R62.7 Active 654812603 Problem Dysthymic disorder F34.1 Active 99974510 Problem Hypertension I10 Active 88042389 Problem Mood disorder F39 Active 44286914 Problem Irritable bowel syndrome with diarrhea K58.0 Active 780682000 Problem Oropharyngeal dysphagia R13.12 Active 56448558 Problem 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 Active 46595729 Problem Other chronic pain G89.29 Active 63032831 Problem Primary insomnia F51.01 Active 9568541 Problem Poor appetite R63.0 Active 07517746 Problem 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 Active 848362559070441 Problem Iron deficiency anemia secondary to inadequate dietary iron intake D50.8 Active 381265992 Problem Coarse tremors G25.2 Active 70811967 Problem Gastroesophageal reflux disease without esophagitis K21.9 Active 920424685 Problem Essential hypertension I10 Active 85808512 ALLERGIES No Information ENCOUNTERS Encounter Location Date Diagnosis [facility] [address] [place], [place] [id number] Jun, Pain in left hip M25.552 ; Pain in right hip M25.551 and Primary insomnia F51.01 [facility] [id number] [address] Jun, [facility] [address] [place] [id number] May, [facility] [id number] [place] [address] 01314- 5892 May, [facility] [id number] [place] [address] 56853- 2752 May, [facility] [address] [place] [id number] May, Mood disorder F39 [facility] [id number] [place] [address] 05464- 2905 May, [facility] [id number] [place] [address] 80560- 5081 April, [facility] [address] [id number] April, Generalized anxiety disorder F41.1 ; Obsessive thinking F42.8 and Insomnia , unspecified type G47.00 [facility] [address] [address] April, [facility] [id number] [place] [address] 23144- 3580 April, Rash of face R21 [facility] [id number] [place] [address] 38564- 1074 Mar, [facility] [id number] [place] [address] 13682- 9876 Mar, [facility] [id number] [address] 7910 Mar, [facility] [id number] [place] [address] 88772- 7695 Jan, [place] [address] [address]- 74[address] Jan, [facility] [id number] Jan, Constipation, unspecified constipation type K59.00 and Other chronic pain G89.29 [place] [address] 15125- 9383 Jan, [facility] [address] [id number] Jan, Obsessive thinking F42.8 and Coarse tremors G25.2 [place] [address] [id number] Jan, [place] [address] [id number] Jan, [facility] [address] [id number] Jan, Generalized anxiety disorder F41.1 ; Obsessive thinking F42.8 ; Callus of foot L84 and 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 [place] [id number] [place] [address] 12355- 3665 Dec, Generalized anxiety disorder F41.1 and Severe episode of recurrent major depressive disorder, without psychotic features F33.2 [place] [id number] [place] [address] 22325- 9612 Nov, [place] [id number] [place] [address] 34584- 4509 Nov, [facility] [id number] Nov, Oropharyngeal dysphagia R13.12 ; Generalized anxiety disorder F41.1 and 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 [place] [id number] [place] [address] 09918- 1269 Nov, [place] [id number] [id number] Nov, [facility] [address], [place] [address] 4076 Nov, [facility] [address], [place] [address] 2546 Nov, [facility] [address], [place] [address] 1596 Oct, Constipation, unspecified constipation type K59.00 and Mood disorder F39 [facility] [id number] [address] Oct, [facility] [id number] [place] [id number] Sep, [facility] [id number] [id number] Sep, [facility] [id number] [place] [id number] Sep, [facility] [id number] [id number] Sep, [facility] [id number] Sep, Generalized abdominal pain R10.84 [facility] [address], [place] [address] 2546 Sep, [facility] [id number] [id number] Sep, Generalized anxiety disorder F41.1 and Primary insomnia F51.01 [facility] [id number] [id number] Aug, [facility] [id number] [id number] Aug, Generalized anxiety disorder F41.1 [facility] [id number] [address] 2546 Jul, [facility] [address] [place] [id number] Jul, Obsessive thinking F42.8 [facility] [id number] [place] [address] 44940- 7310 Jul, Generalized anxiety disorder F41.1 and Irritable bowel syndrome with diarrhea K58.0 [facility] [id number] [id number] Jul, Generalized anxiety disorder F41.1 [facility] [id number] [place] [id number] Jun, Generalized anxiety disorder F41.1 [facility] [id number] [place] [address] 90813- 8671 May, [facility] [place] [address] [place] [id number] May, Generalized anxiety disorder F41.1 ; Irritable bowel syndrome with diarrhea K58.0 and Coarse tremors G25.2 [facility] [id number] [place] [address] 90750- 1951 April, [facility] [id number] [place] [address] 58717- 2212 April, [facility] [id number] [place] [address] 07213- 9311 April, [facility] [id number] [place] [address] 32158- 1728 Mar, [facility] [address] [place] [id number] Mar, Severe episode of recurrent major depressive disorder, without psychotic features F33.2 and Pain in left hip M25.552 [facility] [id number] [place] [address] 11062- 2760 Mar, [facility] [id number] [place] [address] 46196- 6442 Mar, [facility] [id number] [place] [address] 03572- 9917 Mar, [facility] [id number] [place] [address] 82876- 2448 Mar, Pain in right hip M25.551 and Self-care deficit in patient living alone R46.89 [facility] [id number] [place] [address] 58361 -7602 Jan, Other chronic pain G89.29 ; Pain in left hip M25.552 and Slow transit constipation K59.01 [facility] [id number] [place] [address] 23815- 2408 Jan, [facility] [id number] [place] [address] 49678- 2919 Dec, Other depression F32.89 ; Constipation, unspecified constipation type K59.00 and Insomnia, unspecified type G47.00 [place] [id number] [place] [address] 56254- 4742 Nov, Reactive depression F32.9 ; Chronic idiopathic constipation K59.04 ; Generalized anxiety disorder F41.1 ; Coarse tremors G25.2 ; Gastroesophageal reflux disease without esophagitis K21.9 ; Dysthymic disorder F34.1 ; Vitamin deficiency, unspecified E56.9 and Primary insomnia F51.01 [place] [id number] [place] [address] 74480- 5647 Nov, [place] [id number] [place] [address] 81828- 8254 Nov, [place] [id number] [place] [address] 01440- 3339 Nov, [place] [address] 82448- 8467 Nov, Reactive depression F32.9 ; Essential hypertension I10 ; Generalized anxiety disorder F41.1 ; 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 ; Pain in right hip M25.551 ; Other chronic pain G89.29 ; Chronic idiopathic constipation K59.04 ; Primary insomnia F51.01 ; Coarse tremors G25.2 ; Gastroesophageal reflux disease without esophagitis K21.9 ; Iron deficiency anemia secondary to inadequate dietary iron intake D50.8 and Vitamin deficiency, unspecified E56.9 [facility] [id number] [place] [address] 68149- 4760 29 Oct, 2016 [facility] [id number] [place] [address] 61877- 9613 Oct, [facility] [id number] [place] [address] 67755- 1544 Oct, [place] [id number] [place] [address] 58642- 5660 16 Oct, 2016 Generalized anxiety disorder F41.1 ; Poor appetite R63.0 ; Dehydration E86.0 and Failure to thrive in adult R62.7 [place] [id number] [place] [address] 45445- 4869 07 Oct, 2016 Generalized anxiety disorder F41.1 and Failure to thrive in adult R62.7 [facility] [id number] [place] [address] 19145- 2188 Oct, [place] [id number] [place] [address] 35335- 0195 Oct, [facility] [id number] [place] [address] 97540 -3110 Sep, Vaginal discharge N89.8 and Acute cystitis with hematuria N30.01 [facility] [id number] [place] [address] 83930- 7959 Sep, [facility] [id number] [place] [address] 81979- 0554 Sep, [facility] [id number] [place] [address] 53558- 9028 Sep, Dysthymic disorder F34.1 ; Acute vaginitis N76.0 ; Dysuria R30.0 and Vaginal yeast infection B37.3 [facility] [id number] [place] [address] 08279- 4643 Aug, [facility] [id number] [place] [address] 56594- 6140 Aug, [facility] [id number] [place] [address] 46375 -2662 Aug, Foul smelling urine R82.90 ; Rapid heart rate R00.0 and Flatulence R14.3 [facility] [id number] [place] [address] 24087- 6060 Aug, [facility] [address] 59050- 0880 Jul, Constipation, unspecified constipation type K59.00 ; Weak R53.1 ; Poor appetite R63.0 ; Coronary artery disease involving eyak heart without angina pectoris, unspecified vessel or lesion type I25.10 ; Fatigue, unspecified type R53.83 ; Urinary incontinence, unspecified type R32 and Insomnia, unspecified type G47.00 [facility] [id number] [place] [address] 83980- 2169 Jul, [facility] [id number] [place] [address] 70533- 4562 Jun, Dysuria R30.0 [place] [id number] [place] [address] 93482- 0959 Jun, [facility] [id number] [place] [address] 86447- 1314 Jun, Urinary tract infection, site not specified N39.0 ; Acute vaginitis N76.0 and Diarrhea, unspecified type R19.7 [place] [id number] [place] [address] 07106- 9641 May, [facility] [id number] [place] [address] 55284- 8746 April, [facility] [id number] [id number] 13 Apr, 2016 Encounter for dental examination Z01.20 [facility] [id number] [place] [address] 61561- 9150 April, [facility] [id number] [place] [address] 88988- 6009 April, Tremor R25.1 and Episodic tension-type headache, not intractable G44.219 [facility] [id number] [place] [address] 17748- 3950 Mar, [facility] [id number] [place] [address] 72932- 8716 Jan, Mood disorder F39 [facility] [id number] [place] [address] 95643 -5756 Jan, [facility] [id number] [place] [address] 87162- 7861 Jan, [facility] [id number] [place] [address] 99992- 9557 Jan, [facility] [id number] [place] [address] 05716- 7444 Jan, [facility] [id number] [place] [address] 82263- 2283 Jan, [facility] [id number] [place] [address] 87574- 6749 Jan, [facility] [id number] [place] [address] 03031 -9935 Dec, Acute diarrhea R19.7 [facility] [id number] [place] [address] 96131- 6036 Dec, [facility] [id number] [place] [address] 42536- 8007 Dec, [facility] [id number] [place] [address] 17036- 9265 Dec, [facility] [id number] [place] [address] 49477 -9903 Dec, N&V (nausea and vomiting) R11.2 [facility] [id number] [place] [address] 86101- 1783 Dec, Generalized anxiety disorder F41.1 [facility] [id number] [place] [address] 66270- 8573 Dec, Generalized anxiety disorder F41.1 [facility] [id number] [place] [address] 58897- 4711 Nov, Post concussion syndrome F07.81 [facility] [address] 74804- 2957 Nov, Generalized anxiety disorder F41.1 [facility] [id number] [place] [address] 36327- 9552 Nov, [facility] [address] 40143- 6682 Nov, Generalized anxiety disorder F41.1 [facility] [address] [id number] Oct, Dental caries K02.9 [facility] [id number] [place] [address] 01871- 7045 Oct, [facility] [address] [id number] Oct, Dental examination Z01.20 [facility] [id number] [place] [address] [id number] Oct, Encounter for dental examination Z01.20 [facility] [id number] [place] [address] 70175- 8701 Oct, CAD (coronary artery disease) I25.10 [facility] [id number] [place] [address] 90379- 0139 Sep, Generalized anxiety disorder F41.1 [facility] [id number] [place] [address] 50360- 9657 Sep, [facility] [address] 56897- 3907 Sep, Rash and other nonspecific skin eruption R21 and Yeast vaginitis B37.3 [facility] [address] 36411- 4402 Sep, Generalized anxiety disorder F41.1 [facility] [address] 82998- 7427 Aug, Insect bites 919.4 and Hemorrhoids 455.6 [facility] [address] 47127- 4566 Aug, Generalized anxiety disorder 300.02 [facility] [address] 03456- 7467 Aug, [facility] [address] 93955- 2756 Aug, [facility] [id number] [place] [address] 04275- 3729 Aug, Generalized anxiety disorder 300.02 ; No condition on [place] II V71.09 ; Heart problem 429.9 and Hypertension 401.9 [facility] [id number] [place] [address] 18391- 7543 Aug, [facility] [id number] [place] [address] 52016- 5721 Jul, [facility] [id number] [place] [address] 02970- 0447 Jul, [facility] [id number] [place] [address] 38368- 5814 Jul, [facility] [id number] [place] [address] 43097- 2497 Jul, [facility] [address] [place] [address]- 4480 Jul, Rash 782.1 [facility] [id number] [place] [address] 886350- 5113 Jul, UTI (urinary tract infection) 599.0 [facility] [address]- 6054 Jul, [facility] [id number] [place] [address] 63765- 4224 Jun, Dysthymia 300.4 and Anxiety 300.00 [facility] [id number] [place] [address] 054575- 5139 Jun, 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 [facility] [address] [address]- 3713 May, [facility] [id number] [place] [address] 21727- 6014 May, [facility] [address], [place] [address]- 5291 May, Unspecified breast screening V76.10 [facility] [id number] [place] [id number] May, Dental examination V72.2 [facility] [id number] [address] April, [facility] [id number] [address] April, [facility] [id number] [id number] April, Dental examination V72.2 [facility] [id number] [place] [id number] April, Dental examination V72.2 [facility] [id number] [address] Mar, [facility] [address] [id number] [place] [address] 13 Mar, 2015 [facility] [place] [facility] [address] [id number] [place] [address] 25 Jan, 2015 [facility] [place] [facility] [address] [id number] [place] [address] 25 Jan, 2015 [facility] [place] [facility] [address] [id number] [place] [address] 18 Jan, 2015 [facility] [place] [facility] [address] [id number] [place] [address]- 79[address] 18 Jan, 2015 [facility] [place] [facility] [address] [id number] [place] [address] 16 Jan, 2015 [facility] [place] [facility] [address] [id number] [place] [address] 16 Jan, 2015 [facility] [place] [facility] [address] [id number] [place] [address] 13 Jan, 2015 [facility] [place] [facility] [address] [id number] [place] [address] 13 Jan, 2015 [facility] [place] [facility] [address] [id number] [place] [address] 11 Jan, 2015 [facility] [place] [facility] [address] [id number] [place] [address] Jan, [facility] [place] [facility] [address] [id number] [place] [address]- [address] 11 Jan, 2015 [facility] [place] [facility] [address] [id number] [place] [address] Jan, [facility] [place] [facility] [address] [id number] [place] [address]- [address] 09 Jan, 2015 [facility] [place] [facility] [address] [id number] [place] [address] 09 Jan, 2015 [facility] [place] [facility] [address] [id number] [place] [address] Jan, [facility] [place] [facility] [address] [id number] [place] [address] Jan, 2014 [facility] [place] [facility] [address] [address] [id number] [place] [address] Jan, 2014 [facility] [place] [facility] [address] [id number] [place] [address] Jan, 2014 [facility] [place] [facility] [address] [id number] [place] [address] Jan, 2014 [facility] [place] [facility] [address] [id number] [place] [address] 16[address] Jan, 2014 [facility] [place] [facility] [address] [id number] [place] [address] 2059 Jan, [facility] [place] [facility] [address] [id number] [place] [address] Jan, [facility] [place] [facility] [address] [id number] [place] [address] 97[address] Dec, [facility] [place] [facility] [address] [id number] [place] [address] 8136 Dec, [facility] [place] [facility] [address] [id number] [place] [address] 0491 Dec, [facility] [place] [facility] [address] [id number] [place] [address]- 0012 Dec, [facility] [place] [facility] [address] [id number] [place] [address] 0987 Nov, [facility] [place] [facility] [address] [id number] [place] [address]- 1466 Nov, [facility] [place] [facility] [address] [id number] [place] [address]- 5452 Nov, [facility] [place] [facility] [address] [id number] [place] [address]- [address] Nov, [facility] [place] [facility] [address] [id number] [place] [address] 8796 08 Nov, 2014 [facility] [place] [facility] [address] [id number] [place] [address]- 1418 Nov, [facility] [place] [facility] [address] [id number] [place] [address]- 7267 Nov, [facility] [place] [facility] [address] [id number] [place] [address] 8504 Oct, [facility] [place] [facility] [address] [id number] [place] [address]- 8642 Oct, [facility] [place] [facility] [address] [id number] [place] [address] 3991 Oct, [facility] [place] [facility] [address] [id number] [place] [address]- 6781 Oct, [facility] [place] [facility] [address] [id number] [place] [address]- 1304 Oct, [facility] [place] [facility] [address] [id number] [place] [address]- 8478 Oct, [facility] [place] [facility] [address] [id number] [place] [address]- 7073 Oct, [facility] [place] [facility] [address] [id number] [place] [address]- 0389 Oct, [facility] [place] [facility] [address] [id number] [place] [address]- 0758 Oct, [facility] [place] [facility] [address] [id number] [place] [address]- 3946 Oct, [facility] [place] [facility] [address] [id number] [place] [address]- 2005 Oct, [facility] [place] [facility] [address] [id number] [place] [address]- 0846 Oct, [facility] [place] [facility] [address] [id number] [address] Sep, [facility] [place] [facility] [address] [id number] [place] [address]- 9263 Sep, [facility] [place] [facility] [address] [id number] [place] [address]- 3374 Sep, [facility] [place] [facility] [address] [id number] [place] [address]- 8016 Sep, [facility] [place] [facility] [address] [id number] [place] [address]- 3464 Jul, [facility] [place] [facility] [address] [id number] [place] [address]- 9360 Jul, [facility] [place] [facility] [address] [id number] [place] [address]- 1339 Jul, [facility] [place] [facility] [address] [id number] [place] [address]- 1242 Jul, [facility] [place] [facility] [address] [id number] [place] [address]- 8412 Jun, [facility] [place] [facility] [address] [id number] [place] [address]- 6564 Jun, [facility] [place] [facility] [address] [id number] [place] [address]- 2876 Jun, [facility] [place] [facility] [address] [id number] [place] [address]- 3366 Jun, [facility] [place] [facility] [address] [id number] [place] [address]- 5843 May, [facility] [place] [facility] [address] [id number] [place] [address]- 4813 May, [facility] [place] [facility] [address] [id number] [place] [address]- 2656 April, [facility] [place] [facility] [address] [id number] [place] [address]- 8012 April, [facility] [place] [facility] [address] [id number] [place] [address]- 4846 April, [facility] [place] [facility] [address] [id number] [place] [address] April, [facility] [place] [facility] [address] [id number] [place] [address]- 3966 April, [facility] [place] [facility] [address] [id number] [place] [address]- 4338 April, [facility] [place] [facility] [address] [id number] [place] [address]- 6160 April, [facility] [place] [facility] [address] [id number] [place] [address]- 3145 April, [facility] [place] [facility] [address] [id number] [place] [address]- 0028 April, [facility] [place] [facility] [address] [id number] [place] [address]- 9820 Mar, [facility] [place] [facility] [address] [id number] [place] [address]- 3515 Mar, [facility] [place] [facility] [address] [id number] [place] [address]- 7861 Mar, [facility] [place] [facility] [address] [id number] [place] [address]- 5023 Mar, [facility] [place] [facility] [address] [id number] [place] [address]- 3234 Jan, [facility] [place] [facility] [address] [id number] [place] [address]- 1710 Jan, [facility] [place] [facility] [address] [id number] [place] [address]- 0315 Jan, [facility] [place] [facility] [address] [id number] [place] [address]- 9172 Jan, [facility] [place] [facility] [address] [id number] [place] [address]- 7466 Jan, [facility] [place] [facility] [address] [id number] [place] [address]- 2040 10 Jan, 2014 [facility] [address] [id number] [place] [address]- 1551 Jan, [facility] [place] [facility] [address] [id number] [place] [address]- 0326 Jan, [facility] [place] [facility] [address] [id number] [place] [address]- 7356 Jan, [facility] [place] [facility] [address] [id number] [place] [address]- 1906 Jan, [facility] [place] [facility] [address] [id number] [place] [address]- 5476 Jan, [facility] [place] [facility] [address] [id number] [place] [address]- 8966 Jan, [facility] [place] [facility] [address] [id number] [place] [address]- 6807 Dec, [facility] [place] [facility] [address] [id number] [place] [address]- 3789 Dec, [facility] [place] [facility] [address] [id number] [place] [address]- 6305 Dec, [facility] [place] [facility] [address] [facility] [id number] [place] [address]- 7154 Dec, [facility] [place] [facility] [address] [id number] [place] [address]- 3580 Nov, [facility] [place] [facility] [address] [id number] [place] [address] 2546 Nov, [facility] [place] [facility] [address] [id number] [place] [address]- 7316 Nov, [facility] [place] [facility] [address] [id number] [place] [address]- 1576 Nov, [facility] [place] [facility] [address] [id number] [place] [address]- 0449 Oct, [facility] [place] [facility] [address] [id number] [place] [address]- 0350 Oct, [facility] [place] [facility] [address] [id number] [place] [address]- 8885 Sep, [facility] [place] [facility] [address] [id number] [place] [address] Sep, [facility] [place] [facility] [address] [id number] [place] [address]- 5376 Jul, [facility] [place] [facility] [address] [id number] [place] [address]- 8019 Jul, [facility] [place] [facility] [address] [id number] [place] [address]- 5612 Jun, [facility] [place] [facility] [address] [id number] [place] [address]- 7251 Jun, [facility] [place] [facility] [address] [id number] [place] [address]- 0999 Jun, [facility] [place] [facility] [address] [id number] [place] [address]- 2148 May, [facility] [place] [facility] [address] [id number] [place] [address]- 4366 May, [facility] [place] [facility] [address] [id number] [place] [address]- 5993 May, [facility] [place] [facility] [address] [id number], [place] [address]- 8275 May, [facility] [place] [facility] [address] [id number] [place] [address]- 3653 May, [facility] [place] [facility] [address] [id number] [place] [address]- 1676 April, [facility] [place] [facility] [address] [id number] [place] [address]- 8471 April, [facility] [place] [facility] [address] [id number] [place] [address]- 7913 April, [facility] [address] [id number] [place] [address]- 8668 April, [facility] [address] [id number] [place] [address]998 April, [facility] [address] [facility] [id number] [place] [address]- 8169 April, [facility] [place] [facility] [address] [id number] [place] [address]- 6033 Mar, [facility] [address] [id number] [place] [address]- 6030 Mar, [facility] [address] [id number] [place] [address]- 9358 Jan, [facility] [address] [id number] [place] [address]- 8164 Jan, [facility] [address] [id number] [place] [address]- 7925 Jan, [facility] [address] [id number] [place] [address]- 2759 Jan, [facility] [address] [facility] [id number] [place] [address]- 9259 Jan, [facility] [place] [facility] [address] [facility] [id number] [place] [address]- 1074 Jan, [facility] [place] [facility] [address] [facility] [id number] [place] [address]- 5987 Jan, [facility] [place] [facility] [address] [id number] [place] [address]- 3207 Jan, [facility] [place] [facility] [address] [facility] [id number] [place] [address]- 1543 Jan, [facility] [place] [facility] [address] [facility] [id number] [place] [address]- 4870 Jan, [facility] [address] [id number] [place] [address]- 7548 Jan, [facility] [address] [id number] [place] [address]- 6852 Dec, [facility] [address] [id number] [place] [address]- 6169 Nov, [facility] [place] [facility] [address] [id number] [place] [address]- 1759 Nov, [facility] [address] [id number] [place] [address]- 9617 Nov, [facility] [address] [id number] [place] [address]- 9469 Nov, [facility] [address] [id number] [place] [address]- 1444 Nov, [facility] [address] [id number] [place] [address]- 7088 Nov, [facility] [address] [id number] [place] [address]- 3924 Nov, [facility] [address] [id number] [place] [address]- 7513 Nov, [facility] [address] [id number] [place] [address]- 1780 Nov, [facility] [place] [facility] [address] [id number], [place] [address]- 0047 Nov, [facility] [place] [facility] [address] [id number] [place] [address]- 2700 Nov, [facility] [place] [facility] [address] [id number] [place] [address]- 0615 Nov, [facility] [place] [facility] [address] [id number] [place] [address]- 7078 Nov, [facility] [place] [facility] [address] [id number] [place] [address]- 3817 17 Oct, 2012 [facility] [place] [facility] [address] [id number] [place] [address]- 6687 Oct, [facility] [place] [facility] [address] [id number] [place] [address]- 0289 Oct, [facility] [place] [facility] [address] [id number] [place] [address]- 9026 Sep, [facility] [place] [facility] [address] [id number] [place] [address]- 3490 Sep, [facility] [place] [facility] [address] [id number] [place] [address]- 4105 Sep, [facility] [place] [facility] [address] [id number] [place] [address]- 6533 Sep, [facility] [place] [facility] [address] [id number] [place] [address]- 1043 27 Aug, 2012 [facility] [place] [facility] [address] [id number] [place] [address]- 4179 20 Aug, 2012 [facility] [place] [facility] [address] [id number] [place] [address]- 8250 24 Jul, 2012 [facility] [place] [facility] [address] [facility] [id number] [place] [address]- 4924 May, [facility] [place] [facility] [address] [id number] [place] [address]- 5354 May, [facility] [place] [facility] [address] [id number] [place] [address]- 7733 May, [facility] [place] [facility] [address] [id number] [place] [address]- 1669 April, [facility] [place] [facility] [address] [facility] [id number] [place] [address]- 6294 11 Mar, 2012 [facility] [place] [facility] [address] [facility] [id number] [place] [address]- 5280 Mar, [facility] [place] [facility] [address] [id number] [place] [address]- 6294 Mar, [facility] [place] [facility] [address] [id number] [place] [address]- 3209 Jan, [facility] [place] [facility] [address] [id number] [place] [address]- 6797 Jan, [facility] [place] [facility] [address] [id number] [place] [address]- 6609 Jan, [facility] [place] [facility] [address] [id number] [place] [address]- 1745 Dec, [facility] [place] [facility] [address] [id number] [place] [address]- 5869 Dec, [facility] [place] [facility] [address] [id number] [place] [address]- 3238 Dec, [facility] [place] [facility] [address] [id number] [place] [address]- 4914 Dec, [facility] [place] [facility] [address] [id number] [place] [address]- 1911 Nov, [facility] [place] [facility] [address] [id number] [place] [address]- 1165 Nov, [facility] [place] [facility] [address] [id number] [place] [address]- 7413 Nov, [facility] [place] [facility] [address] [id number] [place] [address]- 3416 Oct, [facility] [place] [facility] [address] [id number] [place] [address]- 7394 Sep, [facility] [place] [facility] [address] [id number] [place] [address]- 6145 Sep, [facility] [place] [facility] [address] [id number] [place] [address]- 8608 13 Sep, 2011 [facility] [place] [facility] [address] [id number] [place] [address]- 7385 15 Nov, 2010 [facility] [address] [facility] [id number], [place] [address]- 6852 23 Oct, 2010 [facility] [address] [facility] [id number] 7646 Oct, [facility] [address] [facility] [id number], [place] [address]- 9316 18 Oct, 2010 [facility] [address] [facility] [id number], [place] [address]- 3135 16 Oct, 2010 [facility] [address] [facility] [id number], [place] [address]- 9657 Sep, [facility] [address] [facility] [id number], [place] [address]- 5085 April, [facility] [address] [facility] [id number], [place] [address]- 8426 Nov, [facility] [address] [facility] [id number], [place] [address]- 1748 24 Nov, 2009 [facility] [address] [facility] [id number], [place] [address]- 9819 Nov, [facility] [address] [facility] [id number], [place] [address]- 0474 Nov, [facility] [address] [id number], [place] [address]- 4559 Nov, [facility] [address] [facility] [id number], [place] [address]- 3960 Oct, [facility] [address] [facility] [id number][place] 2336 Oct, [facility] [address] [facility] [id number][place] 6756 13 Sep, 2009 [facility] [address] [facility] [id number][place]- 3627 Jan, IMMUNIZATIONS No Known Immunizations SOCIAL HISTORY Never Assessed REASON FOR VISIT Ruby psych admit PLAN OF CARE VITAL SIGNS MEDICATIONS Unknown [...] History Intertrechanteric hip fx 04/27/16 Hospitalization History [facility] (inpatient [facility] 2 times) Hx of 3 inpatient psych treatments in past in [place] oct 2016 [facility]ization History [facility] 2016
--- OUTSIDE RECORDS SUMMARY | 2018-08-20 12:39 | XMS REPORT ---
Author Author WOLF AGUIRRE [facility] Address [address] [place] [address] Care Team Providers Care Poker Supervisor Name Role Phone WOLF AGUIRRE Unavailable PROBLEMS Type Condition ICD9-CM Code LJJ31-ED Code Onset Dates Condition Status SNOMED Code Problem Sundowning F05 Active 267315483 Problem Constipation, unspecified constipation type K59.00 Active 51881679 Problem Reactive depression F32.9 Active 42104874 Problem Vascular dementia with behavior disturbance F01.51 Active 427578012030477 Problem Insomnia, unspecified type G47.00 Active 926648940 Problem Generalized anxiety disorder F41.1 Active 11355244 Problem Other chronic pain G89.29 Active 92954361 Problem Severe episode of recurrent major depressive disorder, without psychotic features F33.2 Active 77963722 Problem Slow transit constipation K59.01 Active 84672472 Problem 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 Active 789946468 Problem Obsessive thinking F42.8 Active 39060257 Problem Failure to thrive in adult R62.7 Active 120289688 Problem Dysthymic disorder F34.1 Active 48751487 Problem Hypertension I10 Active 03019757 Problem Mood disorder F39 Active 64648452 Problem Irritable bowel syndrome with diarrhea K58.0 Active 275006247 Problem Oropharyngeal dysphagia R13.12 Active 08660836 Problem 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 Active 70139926 Problem Other chronic pain G89.29 Active 58983217 Problem Primary insomnia F51.01 Active 6093643 Problem Poor appetite R63.0 Active 76346193 Problem 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 Active 993018332855560 Problem Iron deficiency anemia secondary to inadequate dietary iron intake D50.8 Active 211881385 Problem Coarse tremors G25.2 Active 49879516 Problem Gastroesophageal reflux disease without esophagitis K21.9 Active 388695578 Problem Essential hypertension I10 Active 77923409 ALLERGIES No Information ENCOUNTERS Encounter Location Date Diagnosis [facility] [address], [place] [address] May, [facility] [address] [place] [id number] May, [facility] [address], [place] [address] May, [facility] [id number] [place] [address] 91599- 5510 April, [facility] [address] [id number] April, Generalized anxiety disorder F41.1 ; Obsessive thinking F42.8 and Insomnia , unspecified type G47.00 [facility] [id number] [place] [address] 32093- 2719 April, [facility] [id number] [place] [address] 97743- 1443 April, Rash of face R21 [facility] [id number] [place] [address] 56781- 4685 Mar, [facility] [id number] [place] [address] 71445- 2575 Mar, [facility] [address], [place] [address] 0787 Mar, [facility] [id number] [place] [address] 29793- 1817 Jan, [facility] [id number] [place] [address] 76921- 1707 Jan, [facility] [address] [place] [id number] Jan, Constipation, unspecified constipation type K59.00 and Other chronic pain G89.29 [facility] [id number] [place] [address] 36965- 6449 Jan, [facility] [address] [place] [id number] Jan, Obsessive thinking F42.8 and Coarse tremors G25.2 [facility] [id number] [place] [id number] Jan, [facility] [id number] [place] [address] [id number] Jan, [facility] [address] [place] [id number] Jan, Generalized anxiety disorder F41.1 ; Obsessive thinking F42.8 ; Callus of foot L84 and 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 [facility] [id number] [place] [address] 46605- 0558 Dec, Generalized anxiety disorder F41.1 and Severe episode of recurrent major depressive disorder, without psychotic features F33.2 [facility] [id number] [place] [address] 06910- 9259 Nov, [facility] [id number] [place] [address] 69107- 6237 Nov, [facility] [address] [id number] Nov, Oropharyngeal dysphagia R13.12 ; Generalized anxiety disorder F41.1 and 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 [facility] [address] [place] [address] 86116- 9315 Nov, [facility] [id number] [place] [address] [phone] Nov, [facility] [id number] [place] [address] 39714- 1499 Nov, [facility] [id number] [place] [address] 08938- 4930 Nov, [facility] [id number] [place] [address] 76608- 3058 Oct, Constipation, unspecified constipation type K59.00 and Mood disorder F39 [facility] [id number], [place] [address] 4[address] Oct, [facility] [id number] [id number] Sep, [facility] [id number] [id number] Sep, [facility] [id number] [id number] Sep, [facility] [id number] [place] [address] [id number] Sep, [facility] [address] [place] [id number] Sep, Generalized abdominal pain R10.84 [facility] [address], [place] [address] 3[address] Sep, [facility] [id number] [place] [id number] Sep, Generalized anxiety disorder F41.1 and Primary insomnia F51.01 [facility] [id number] [id number] Aug, [facility] [id number] [place] [address] [id number] Aug, Generalized anxiety disorder F41.1 [facility] [id number] [address] Jul, [facility] [address] [place] [id number] Jul, Obsessive thinking F42.8 [facility] [id number] [address] Jul, Generalized anxiety disorder F41.1 and Irritable bowel syndrome with diarrhea K58.0 [facility] [id number] [id number] Jul, Generalized anxiety disorder F41.1 [facility] [id number] [id number] Jun, Generalized anxiety disorder F41.1 [facility] [address], [place] [address] May, [facility] [address] [place] [phone] May, Generalized anxiety disorder F41.1 ; Irritable bowel syndrome with diarrhea K58.0 and Coarse tremors G25.2 [facility] [id number] [place] [address] 74713- 3452 April, [facility] [id number] [place] [address] 21419- 8059 April, [place] [id number] [place] [address] 85722- 8804 April, [facility] [id number] [place] [address] 10270- 9250 Mar, [facility] [address] [id number] Mar, Severe episode of recurrent major depressive disorder, without psychotic features F33.2 and Pain in left hip M25.552 [facility] [id number] [place] [address] 23730- 7969 Mar, [facility] [id number] [place] [address] 20910- 1741 Mar, [facility] [id number] [place] [address] 38420- 3938 Mar, [facility] [id number] [place] [address] 02655- 9858 Mar, Pain in right hip M25.551 and Self-care deficit in patient living alone R46.89 [facility] [id number] [place] [address] 46670 -1471 Jan, Other chronic pain G89.29 ; Pain in left hip M25.552 and Slow transit constipation K59.01 [facility] [id number] [place] [address] 68510- 1221 Jan, [facility] [id number] [place] [address] 89586- 6664 Dec, Other depression F32.89 ; Constipation, unspecified constipation type K59.00 and Insomnia, unspecified type G47.00 [facility] [id number] [place] [address] 08236- 3302 Nov, Reactive depression F32.9 ; Chronic idiopathic constipation K59.04 ; Generalized anxiety disorder F41.1 ; Coarse tremors G25.2 ; Gastroesophageal reflux disease without esophagitis K21.9 ; Dysthymic disorder F34.1 ; Vitamin deficiency, unspecified E56.9 and Primary insomnia F51.[address] [address]807- 8601 Nov, [address] 05189- 8000 Nov, [address] 79368- 2678 Nov, [place] [id number] [place] [address] 98920- 6348 Nov, Reactive depression F32.9 ; Essential hypertension I10 ; Generalized anxiety disorder F41.1 ; 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 ; Pain in right hip M25.551 ; Other chronic pain G89.29 ; Chronic idiopathic constipation K59.04 ; Primary insomnia F51.01 ; Coarse tremors G25.2 ; Gastroesophageal reflux disease without esophagitis K21.9 ; Iron deficiency anemia secondary to inadequate dietary iron intake D50.8 and Vitamin deficiency, unspecified E56.9 [place] [id number] [place] [address] 54094- 8905 Oct, [place] [id number] [place] [address] 04538- 1860 Oct, [address] 07900- 6723 Oct, [facility] [id number] [place] [address] 52980- 6443 16 Oct, 2016 Generalized anxiety disorder F41.1 ; Poor appetite R63.0 ; Dehydration E86.0 and Failure to thrive in adult R62.7 [place] [id number] [place] [address] 85310- 7831 07 Oct, 2016 Generalized anxiety disorder F41.1 and Failure to thrive in adult R62.7 [facility] [id number] [place] [address] 26356- 5924 Oct, [place] [address] 99629- 3269 Oct, [facility] [id number] [place] [address] 99506 -0744 Sep, Vaginal discharge N89.8 and Acute cystitis with hematuria N30.01 [place] [id number] [place] [address] 34119- 3803 Sep, [facility] [id number] [place] [address] 71508- 3730 Sep, [place] [id number] [place] [address] 22519- 3652 Sep, Dysthymic disorder F34.1 ; Acute vaginitis N76.0 ; Dysuria R30.0 and Vaginal yeast infection B37.3 [place] [id number] [place] [address] 07286- 5740 Aug, [place] [id number] [place] [address] 59777- 3921 Aug, [facility] [id number] [place] [address] 25590 -6095 Aug, Foul smelling urine R82.90 ; Rapid heart rate R00.0 and Flatulence R14.3 [place] [id number] [place] [address] 70952- 6055 Aug, [place] [id number] [place] [address] 80186- 0049 Jul, Constipation, unspecified constipation type K59.00 ; Weak R53.1 ; Poor appetite R63.0 ; Coronary artery disease involving cahto heart without angina pectoris, unspecified vessel or lesion type I25.10 ; Fatigue, unspecified type R53.83 ; Urinary incontinence, unspecified type R32 and Insomnia, unspecified type G47.00 [place] [id number] [place] [address] 07911- 5734 Jul, [place] [address] 17810- 9020 Jun, Dysuria R30.0 [place] [id number] [place] [address] 77801- 9801 Jun, [place] [address] 94239- 0136 Jun, Urinary tract infection, site not specified N39.0 ; Acute vaginitis N76.0 and Diarrhea, unspecified type R19.7 [place] [address] 61664- 3990 May, [place] [id number] [place] [address] 55062- 0793 April, [facility] [address] [id number] April, Encounter for dental examination Z01.20 [place] [id number] [place] [address] 80197- 5799 April, [place] [address] 46046- 5492 April, Tremor R25.1 and Episodic tension-type headache, not intractable G44.219 [place] [address] 54709- 6834 Mar, [place] [address], [place] [address]- 0633 15 Jan, 2016 Mood disorder F39 [facility] [id number] [place] [address] 49261 -9610 Jan, [facility] [id number] [place] [address] 89146- 1501 Jan, [facility] [id number] [place] [address] 01527- 3547 Jan, [facility] [id number] [place] [address] 18686- 0871 Jan, [facility] [id number] [place] [address] 85559- 8896 Jan, [facility] [id number] [place] [address] 83055- 6303 Jan, [facility] [id number] [place] [address] 56283 -1726 Dec, Acute diarrhea R19.7 [facility] [id number] [place] [address] 41059- 8798 Dec, [facility] [id number] [place] [address] 15794- 0029 Dec, [facility] [address] [place] [address] 79550- 2638 Dec, [facility] [id number] [place] [address] 95890 -3984 Dec, N&V (nausea and vomiting) R11.2 [facility] [id number] [place] [address] 04449- 6575 Dec, Generalized anxiety disorder F41.1 [facility] [address] [place] [address] 96812- 4370 Dec, Generalized anxiety disorder F41.1 [facility] [id number] [place] [address] 01893- 6428 Nov, Post concussion syndrome F07.81 [facility] [address] [place] [address] 789874- 3313 Nov, Generalized anxiety disorder F41.1 [facility] [address] [place] [address] 184251- 1596 Nov, [facility] [id number] [place] [address] 25340- 6578 Nov, Generalized anxiety disorder F41.1 [facility] [id number] [place] [address] [id number] Oct, Dental caries K02.9 [facility] [id number] [place] [address] 039137- 5056 Oct, [facility] [id number] [place] [address] [id number] Oct, Dental examination Z01.20 [facility] [id number] [place] [address] [id number] Oct, Encounter for dental examination Z01.20 [facility] [id number] [place] [address] 22071- 9145 Oct, CAD (coronary artery disease) I25.10 [facility] [address] [place] [address] 16661- 2033 Sep, Generalized anxiety disorder F41.1 [facility] [id number] [place] [address] 57343- 2629 Sep, [facility] [address] [place] [address] 94058- 5028 Sep, Rash and other nonspecific skin eruption R21 and Yeast vaginitis B37.3 [facility] [address] [place] [address] 657839- 9734 Sep, Generalized anxiety disorder F41.1 [facility] [id number] [place] [address] 96774- 3257 Aug, Insect bites 919.4 and Hemorrhoids 455.6 [facility] [id number] [place] [address] 33847- 8176 Aug, Generalized anxiety disorder 300.02 [facility] [id number] [place] [address] 05150- 0247 Aug, [facility] [address] 82687- 3252 Aug, [facility] [id number] [place] [address] 65891- 7341 Aug, Generalized anxiety disorder 300.02 ; No condition on [place] II V71.09 ; Heart problem 429.9 and Hypertension 401.9 [facility] [id number] [place] [address] 66182- 6215 Aug, [facility] [address] 73650- 6501 Jul, [facility] [id number] [place] [address] 89940- 1408 Jul, [facility] [id number] [place] [address] 74151- 6440 Jul, [facility] [id number] [place] [address] 50214- 0279 Jul, [facility] [id number] [place] [address] 60533- 5308 Jul, Rash 782.1 [facility] [id number] [place] [address] 63660- 8643 Jul, UTI (urinary tract infection) 599.0 [facility] [id number] [place] [address] 05959- 8793 Jul, [facility] [id number] [place] [address] 53588- 9399 Jun, Dysthymia 300.4 and Anxiety 300.00 [facility] [address] [facility] [id number], [place] [address]- 1866 Jun, 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 [facility] [address], [place] [address]- 9686 May, [facility] [address] [facility] [id number], [place] [address]- 1657 May, [facility] [id number], [place] [address]- 8688 May, Unspecified breast screening V76.10 [facility] [address] [id number] [id number] May, Dental examination V72.2 [facility] [id number], [place] [address]- 7466 April, [facility] [address], [place] [address]- 6824 April, [facility] [id number] [place] [address] [id number] April, Dental examination V72.2 [facility] [address] [place] [address] [id number] April, Dental examination V72.2 [facility] [address], [place] [address]- 0406 Mar, [facility] [address], [place] [address]- 6596 Mar, [facility] [address] [facility] [id number], [place] [address]- 9776 Jan, [facility] [address] [facility] [id number], [place] [address]- 2776 Jan, [facility] [address] [facility] [id number], [place] [address] 2546 Jan, [facility] [address] [facility] [id number], [place] [address]- 7256 Jan, [facility] [place] [facility] [address] [id number] [place] [address]- 5403 16 Jan, 2015 [facility] [place] [facility] [address] [id number] [place] [address]- 0846 16 Jan, 2015 [facility] [place] [facility] [address] [id number] [place] [address]- 9540 13 Jan, 2015 [facility] [place] [facility] [address] [id number] [place] [address]- 4452 13 Jan, 2015 [facility] [place] [facility] [address] [id number] [place] [address]- 5338 11 Jan, 2015 [facility] [place] [facility] [address] [id number] [place] [address]- 3894 Jan, [facility] [place] [facility] [address] [id number] [place] [address]- 2479 Jan, [facility] [place] [facility] [address] [id number] [place] [address] Jan, [facility] [place] [facility] [address] [id number] [place] [address] Jan, [facility] [place] [facility] [address] [id number] [place] [address] Jan, [facility] [place] [facility] [address] [id number] [place] [address] Jan, [facility] [place] [facility] [address] [id number] [place] [address] Jan, 2014 [facility] [place] [facility] [address] [id number] [place] [address] Jan, 2014 [facility] [place] [facility] [address] [id number] [place] [address] Jan, 2014 [facility] [place] [facility] [address] [id number] [place] [address] Jan, 2014 [facility] [place] [facility] [address] [id number] [place] [address] Jan, [facility] [place] [facility] [address] [id number] [place] [address] Jan, [facility] [place] [facility] [address] [id number] [place] [address] Jan, [facility] [place] [facility] [address] [id number] [place] [address] Dec, [facility] [place] [facility] [address] [id number] [place] [address] Dec, [facility] [place] [facility] [address] [id number] [place] [address] Dec, [facility] [place] [facility] [address] [id number] [place] [address] Dec, [facility] [place] [facility] [address] [id number] [place] [address] Nov, [facility] [place] [facility] [address] [id number] [place] [address] Nov, [facility] [place] [facility] [address] [id number] [place] [address] Nov, [facility] [place] [facility] [address] [id number] [place] [address]- [address] Nov, [facility] [place] [facility] [address] [id number] [place] [address] Nov, [facility] [place] [facility] [address] [id number] [place] [address]- [address] Nov, [facility] [place] [facility] [address] [id number] [place] [address] Nov, [facility] [place] [facility] [address] [id number] [place] [address] Oct, [facility] [place] [facility] [address] [id number] [place] [address] Oct, [facility] [place] [facility] [address] [id number] [place] [address] Oct, [facility] [place] [facility] [address] [id number] [place] [address] Oct, [facility] [place] [facility] [address] [id number] [place] [address] [address] Oct, [facility] [place] [facility] [address] [id number] [place] [address] Oct, [facility] [place] [facility] [address] [id number] [place] [address] Oct, [facility] [place] [facility] [address] [id number] [place] [address] Oct, [facility] [place] [facility] [address] [id number] [place] [address] Oct, [facility] [place] [facility] [address] [id number] [place] [address] Oct, [facility] [place] [facility] [address] [id number] [place] [address] Oct, [facility] [place] [facility] [address] [id number] [place] [address] Oct, [facility] [place] [facility] [address] [id number] [place] [address] Sep, [facility] [place] [facility] [address] [id number] [place] [address] 8[address] Sep, [facility] [place] [facility] [address] [id number] [place] [address] 79[address] Sep, [facility] [place] [facility] [address] [id number] [place] [address] Sep, [facility] [place] [facility] [address] [id number] [place] [address] Jul, [facility] [place] [facility] [address] [id number] [place] [address] 8739 Jul, [facility] [place] [facility] [address] [id number] [place] [address] Jul, [facility] [place] [facility] [address] [id number] [place] [address] 2490 Jul, [facility] [place] [facility] [address] [id number] [place] [address] Jun, [facility] [place] [facility] [address] [id number] [place] [address]- 6285 Jun, [facility] [place] [facility] [address] [id number] [place] [address] 0761 Jun, [facility] [place] [facility] [address] [id number] [place] [address]- 0765 Jun, [facility] [place] [facility] [address] [id number] [place] [address]- 2713 May, [facility] [place] [facility] [address] [id number] [place] [address]- 0107 May, [facility] [place] [facility] [address] [id number] [place] [address]- 4388 April, [facility] [place] [facility] [address] [id number] [place] [address]- 6087 April, [facility] [place] [facility] [address] [id number] [place] [address]- 3500 April, [facility] [place] [facility] [address] [id number] [place] [address]- 4584 April, [facility] [place] [facility] [address] [id number] [place] [address] April, [facility] [place] [facility] [address] [id number] [place] [address] April, [facility] [place] [facility] [address] [id number] [place] [address]- 8130 April, [facility] [place] [facility] [address] [id number] [place] [address]- 0945 April, [facility] [address] [id number] [place] [address]- 1532 April, [facility] [place] [facility] [address] [id number] [place] [address]- 6156 Mar, [facility] [place] [facility] [address] [id number] [place] [address]- 8726 Mar, [facility] [place] [facility] [address] [id number] [place] [address] 4901 Mar, [facility] [place] [facility] [address] [id number] [place] [address]- 5657 Mar, [facility] [place] [facility] [address] [id number] [place] [address]- 7626 Jan, [facility] [place] [facility] [address] [id number] [place] [address]- 4017 Jan, [facility] [address] [id number] [place] [address]- 6423 Jan, [facility] [place] [facility] [address] [id number] [place] [address]- 1777 Jan, [facility] [address] [id number] [place] [address]- 6128 Jan, [facility] [place] [facility] [address] [id number] [place] [address]- 3880 Jan, [facility] [place] [facility] [address] [id number] [place] [address]- 0848 Jan, [facility] [place] [facility] [address] [id number] [place] [address]- 7219 Jan, [facility] [place] [facility] [address] [id number] [place] [address]- 4602 Jan, [facility] [place] [facility] [address] [id number] [place] [address]- 9012 Jan, [facility] [place] [facility] [address] [id number] [place] [address]- 9334 Jan, [facility] [place] [facility] [address] [id number] [place] [address]- 1102 Jan, [facility] [place] [facility] [address] [facility] [id number] [place] [address]- 5538 Dec, [facility] [place] [facility] [address] [id number] [place] [address]- 3306 Dec, [facility] [place] [facility] [address] [id number] [place] [address]- 6909 Dec, [facility] [place] [facility] [address] [id number] [place] [address]- 1179 Dec, [facility] [place] [facility] [address] [id number] [place] [address]- 8508 Nov, [facility] [place] [facility] [address] [id number], [place] [address]367 Nov, [facility] [place] [facility] [address] [id number] [place] [address]- 0234 Nov, [facility] [place] [facility] [address] [id number] [place] [address]- 0611 Nov, [facility] [place] [facility] [address] [id number], [place] [address]- 9[address] Oct, [facility] [place] [facility] [address] [id number], [place] [address]- 8911 Oct, [facility] [place] [facility] [address] [id number] [place] [address]- 4263 Sep, [facility] [place] [facility] [address] [id number], [place] [address] Sep, [facility] [place] [facility] [address] [id number] [place] [address]- 6808 Jul, [facility] [place] [facility] [address] [id number] [place] [address]- 2778 Jul, [facility] [address] [id number] [place] [address]- 6226 Jun, [facility] [address] [id number] [place] [address]- 7753 Jun, [facility] [address] [id number] [place] [address]- 6286 Jun, [facility] [address] [id number] [place] [address]- 7716 May, [facility] [address] [id number] [place] [address]- 9038 May, [facility] [address] [id number] [place] [address]- 5305 May, [facility] [address] [id number] [place] [address]- 7933 May, [facility] [address] [id number] [place] [address]- 2016 May, [facility] [address] [id number] [place] [address]- 7160 April, [facility] [address] [id number] [place] [address]- 4057 April, [facility] [address] [id number] [place] [address]- 4619 April, [facility] [address] [id number] [place] [address]- 5486 April, [facility] [place] [facility] [address] [id number] [place] [address]- 0378 April, [facility] [place] [facility] [address] [id number] [place] [address]- 9729 April, [facility] [address] [id number] [place] [address]- 6299 Mar, [facility] [place] [facility] [address] [id number] [place] [address]- 4231 15 Mar, 2013 [facility] [address] [id number] [place] [address]- 1250 Jan, [facility] [address] [id number] [place] [address]- 4363 Jan, [facility] [place] [facility] [address] [id number] [place] [address]- 3052 Jan, [facility] [address] [id number] [place] [address]- 1694 Jan, [facility] [place] [facility] [address] [id number] [place] [address]- 7598 Jan, [facility] [address] [id number] [place] [address]- 7204 Jan, [facility] [address] [id number] [place] [address]- 8309 Jan, [facility] [address] [id number] [place] [address]- 7536 Jan, [facility] [address] [facility] [id number] [place] [address]- 2215 Jan, [facility] [address] [id number] [place] [address]- 3058 Jan, [facility] [place] [facility] [address] [id number], [place] [address]- 7213 Jan, [facility] [place] [facility] [address] [id number] [place] [address]- 7859 Dec, [facility] [place] [facility] [address] [id number] [place] [address]- 8229 Nov, [facility] [place] [facility] [address] [id number] [place] [address]- 8223 Nov, [facility] [place] [facility] [address] [id number] [place] [address]- 1328 26 Nov, 2012 [facility] [place] [facility] [address] [id number] [place] [address]- 5356 26 Nov, 2012 [facility] [place] [facility] [address] [id number] [place] [address]- 5816 Nov, [facility] [place] [facility] [address] [id number] [place] [address]- 3436 Nov, [facility] [place] [facility] [address] [id number] [place] [address]- 8636 Nov, [facility] [place] [facility] [address] [id number] [place] [address]- 7808 Nov, [facility] [place] [facility] [address] [id number] [place] [address]- 7477 Nov, [facility] [place] [facility] [address] [facility] [id number] [place] [address]- 3159 18 Nov, 2012 [facility] [place] [facility] [address] [id number] [place] [address]- 2290 18 Nov, 2012 [facility] [place] [facility] [address] [facility] [id number] [place] [address]- 0413 Nov, [facility] [place] [facility] [address] [facility] [id number] [place] [address]- 8171 Nov, [facility] [place] [facility] [address] [id number] [place] [address]- 6443 Oct, [facility] [place] [facility] [address] [id number], [place] [address]- 8028 Oct, [facility] [place] [facility] [address] [id number] [place] [address]- 0291 Oct, [facility] [place] [facility] [address] [facility] [id number] [place] [address] Sep, [facility] [place] [facility] [address] [id number] [place] [address]- 8955 Sep, [facility] [place] [facility] [address] [id number] [place] [address]- 4659 10 Sep, 2012 [facility] [place] [facility] [address] [id number] [place] [address]- 1911 Sep, [facility] [place] [facility] [address] [id number] [place] [address]- 4634 27 Aug, 2012 [facility] [place] [facility] [address] [id number] [place] [address]- 2358 20 Aug, 2012 [facility] [place] [facility] [address] [id number] [place] [address]- 7801 24 Jul, 2012 [facility] [place] [facility] [address] [id number] [place] [address]- 1627 May, [facility] [place] [facility] [address] [id number] [place] [address]- 9288 May, [facility] [place] [facility] [address] [id number] [place] [address]- 1798 May, [facility] [place] [facility] [address] [id number] [place] [address]- 5306 April, [facility] [place] [facility] [address] [id number] [place] [address]- 4527 Mar, [facility] [place] [facility] [address] [id number] [place] [address]- 0587 Mar, [facility] [place] [facility] [address] [id number] [place] [address]- 4284 Mar, [facility] [place] [facility] [address] [id number] [place] [address]- 0328 Jan, [facility] [place] [facility] [address] [id number] [place] [address]- 7872 Jan, [facility] [place] [facility] [address] [id number] [place] [address]- 8036 Jan, [facility] [place] [facility] [address] [id number] [place] [address]- 3886 Dec, [facility] [place] [facility] [address] [id number] [place] [address]- 3985 Dec, [facility] [place] [facility] [address] [id number] [place] [address]- 8659 Dec, [facility] [place] [facility] [address] [id number] [place] [address]- 0783 Dec, [facility] [place] [facility] [address] [id number] [place] [address]- 9324 Nov, [facility] [place] [facility] [address] [id number] [place] [address]- 8852 Nov, [facility] [place] [facility] [address] [id number] [place] [address]- 7727 Nov, [facility] [place] [facility] [address] [id number] [place] [address]- 5355 Oct, [facility] [place] [facility] [address] [id number] [place] [address]- 9853 Sep, [facility] [place] [facility] [address] [id number] [place] [address]- 4125 Sep, [facility] [place] [facility] [address] [id number] [place] [address]- 1189 Sep, [facility] [place] [facility] [address] [id number], [place] [address]- 7384 Nov, [facility] [place] [facility] [address] [id number] [place] [address]- 1714 Oct, [facility] [place] [facility] [address] [id number] [place] [address]- 3954 Oct, [facility] [place] [facility] [address] [id number] [place] [address]- 4545 18 Oct, 2010 [facility] [place] [facility] [address] [id number] [place] [address]- 7814 16 Oct, 2010 [facility] [place] [facility] [id number], [place] [address]- 3736 11 Sep, 2010 [facility] [id number], [place] [address]- 4693 April, [facility] [id number], [place] [address]- 9091 Nov, [facility] [id number], [place] [address]- 0425 Nov, [facility] [id number], [place] [address]- 6191 Nov, [facility] [id number] [place] [address]- 0974 Nov, [facility] [id number], [place] [address]- 6645 Nov, [facility] [id number] [place] [address]- 7450 Oct, [facility] [id number], [place] [address]- 0595 Oct, [facility] [id number], [place] [address]- 8222 Sep, [facility] [address] [id number], [place] [address]- 8875 Jan, IMMUNIZATIONS No Known Immunizations SOCIAL HISTORY Never Assessed REASON FOR VISIT Requests return call PLAN OF CARE VITAL SIGNS MEDICATIONS Unknown Medications RESULTS No Results PROCEDURES No Known procedures INSTRUCTIONS MEDICATIONS ADMINISTERED No Known Medications MEDICAL (GENERAL) HISTORY Type Description Date Medical History Hypertension Medical History Heart disease CABG X3 Stress test 07/2015 Medical History Gastric ulcer Medical History Hyperlipidemia Medical History Headache syndrome Medical History Psychiatric disorders-depression/racing thoughts Medical History Depression Medical History At [facility] 04[facility]2016 Started on Eliquis Medical History Anemia 04/2016 postsurgical hip fx Surgical History right hip replacement w/ Dr. Bruce 2011 Surgical History triple bypass surgery 2003 Surgical History S/P left hip IM Nail (Intertrechanteric hip fx) 04/28/16 Hospitalization History surgeries Hospitalization History Hypertension Hospitalization History ER for a concussion 11/24/15 Hospitalization History Intertrechanteric hip fx 04/27/16 Hospitalization History [facility] (inpatient [facility] 2 times) Hx of 3 inpatient psych treatments in past in [place] oct 2016 [facility]
--- OUTSIDE RECORDS SUMMARY | 2018-08-20 12:40 | XMS REPORT ---
Author Author WOLF AGUIRRE [facility] Address [address] [place] [address] Care Team Providers Care Rug Sample Beveler Name Role Phone WOLF AGUIRRE Unavailable PROBLEMS Type Condition ICD9-CM Code ZAX09-TR Code Onset Dates Condition Status SNOMED Code Problem Sundowning F05 Active 822047885 Problem Constipation, unspecified constipation type K59.00 Active 63286028 Problem Reactive depression F32.9 Active 97341917 Problem Vascular dementia with behavior disturbance F01.51 Active 168248860721841 Problem Insomnia, unspecified type G47.00 Active 915672634 Problem Generalized anxiety disorder F41.1 Active 55131727 Problem Other chronic pain G89.29 Active 71709096 Problem Severe episode of recurrent major depressive disorder, without psychotic features F33.2 Active 66979775 Problem Slow transit constipation K59.01 Active 29872443 Problem 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 Active 455918484 Problem Obsessive thinking F42.8 Active 13327873 Problem Failure to thrive in adult R62.7 Active 010745108 Problem Dysthymic disorder F34.1 Active 34895289 Problem Hypertension I10 Active 41277646 Problem Mood disorder F39 Active 28149275 Problem Irritable bowel syndrome with diarrhea K58.0 Active 793530326 Problem Oropharyngeal dysphagia R13.12 Active 82486223 Problem 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 Active 74562182 Problem Other chronic pain G89.29 Active 88954572 Problem Primary insomnia F51.01 Active 7570737 Problem Poor appetite R63.0 Active 48784823 Problem 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 Active 139788045884562 Problem Iron deficiency anemia secondary to inadequate dietary iron intake D50.8 Active 242749754 Problem Coarse tremors G25.2 Active 53962710 Problem Gastroesophageal reflux disease without esophagitis K21.9 Active 353619164 Problem Essential hypertension I10 Active 04066433 ALLERGIES No Information ENCOUNTERS Encounter Location Date Diagnosis [facility] [address] [place] [id number] May, [facility] [id number] [place] [address] 23756- 6225 May, [facility] [id number] [place] [address] 43500- 4590 April, [facility] [address] [place] [id number] April, Generalized anxiety disorder F41.1 ; Obsessive thinking F42.8 and Insomnia , unspecified type G47.00 [facility] [id number] [place] [address] 03901- 3816 April, [facility] [id number] [place] [address] 36048- 7167 April, Rash of face R21 [facility] [id number] [place] [address] 93768- 1730 Mar, [facility] [id number] [place] [address] 08458- 2144 Mar, [facility] [id number] [place] [address] 43731- 8840 Mar, [facility] [id number] [place] [address] 47705- 0251 Jan, [facility] [id number] [place] [address] 14996- 5634 Jan, [facility] [address] [place] [id number] Jan, Constipation, unspecified constipation type K59.00 and Other chronic pain G89.29 [facility] [id number] [place] [address] 82005- 6251 Jan, [facility] [address] [place] [address] Jan, Obsessive thinking F42.8 and Coarse tremors G25.2 [facility] [place] [address] [id number] [id number] Jan, [facility] [place] [id number] [place] [id number] Jan, [address] [id number] Jan, Generalized anxiety disorder F41.1 ; Obsessive thinking F42.8 ; Callus of foot L84 and 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 [facility] [id number] [place] [address] 14042- 2256 Dec, Generalized anxiety disorder F41.1 and Severe episode of recurrent major depressive disorder, without psychotic features F33.2 [facility] [id number] [place] [address] 24125- 2442 Nov, [facility] [id number] [place] [address] 23388- 5122 Nov, [address] [id number] Nov, Oropharyngeal dysphagia R13.12 ; Generalized anxiety disorder F41.1 and 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 [facility] [id number] [place] [address] 10852- 7476 Nov, [facility] [place] [id number] [place] [id number] Nov, [facility] [id number] [place] [address] 24651- 4943 Nov, [facility] [id number] [place] [address] 87808- 3038 Nov, [facility] [id number] [place] [address] 99336- 5863 Oct, Constipation, unspecified constipation type K59.00 and Mood disorder F39 [facility] [id number] [place] [address] 29059- 4307 Oct, [facility] [place] [address] [id number] [id number] Sep, [facility] [id number] [address] Sep, [facility] [id number] [address] Sep, [facility] [id number] [address] Sep, [facility] [address] [place] [place] [address] Sep, Generalized abdominal pain R10.84 [facility] [id number] [address] 2546 Sep, [facility] [id number] [address] Sep, Generalized anxiety disorder F41.1 and Primary insomnia F51.01 [facility] [id number] [address] Aug, [facility] [id number] [address] Aug, Generalized anxiety disorder F41.1 [facility] [address] [address]34 Jul, [facility] [address] [place] [address] Jul, Obsessive thinking F42.8 [facility] [address] [address] Jul, Generalized anxiety disorder F41.1 and Irritable bowel syndrome with diarrhea K58.0 [facility] [id number][place] [id number] Jul, Generalized anxiety disorder F41.1 [facility] [id number], [place] [address] Jun, Generalized anxiety disorder F41.1 [facility] [address] [id number] [address] May, [facility] [address] [place] [address] May, Generalized anxiety disorder F41.1 ; Irritable bowel syndrome with diarrhea K58.0 and Coarse tremors G25.2 [facility] [address]00565100[place], [place] [address] 7[address] April, [facility] [id number] [place] [address] 59491- 7138 April, [facility] [id number] [place] [address] 09903- 5407 April, [facility] [id number] [place] [address] 26219- 8695 Mar, [facility] [address] [place] [id number] Mar, Severe episode of recurrent major depressive disorder, without psychotic features F33.2 and Pain in left hip M25.552 [facility] [id number] [place] [address] 68644- 8716 Mar, [facility] [id number] [place] [address] 98582- 8388 Mar, [facility] [id number] [place] [address] 25096- 7135 Mar, [facility] [address]00565[address], [place] [address]- 7469 Mar, Pain in right hip M25.551 and Self-care deficit in patient living alone R46.89 [facility] [address]00565[address], [place] [address] Jan, Other chronic pain G89.29 ; Pain in left hip M25.552 and Slow transit constipation K59.01 [facility] [address]00565100[place], [place] [address]- 0287 Jan, [facility] [id number] [place] [address] 75553- 2742 Dec, Other depression F32.89 ; Constipation, unspecified constipation type K59.00 and Insomnia, unspecified type G47.00 [facility] [id number] [place] [address] 71495- 8177 Nov, Reactive depression F32.9 ; Chronic idiopathic constipation K59.04 ; Generalized anxiety disorder F41.1 ; Coarse tremors G25.2 ; Gastroesophageal reflux disease without esophagitis K21.9 ; Dysthymic disorder F34.1 ; Vitamin deficiency, unspecified E56.9 and Primary insomnia F51.01 [facility] [id number] [place] [address] 21039- 6064 Nov, [facility] [address] 73348- 2740 Nov, [facility] [id number] [place] [address] 35310- 2035 Nov, [facility] [id number] [place] [address] 32347- 6204 Nov, Reactive depression F32.9 ; Essential hypertension I10 ; Generalized anxiety disorder F41.1 ; 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 ; Pain in right hip M25.551 ; Other chronic pain G89.29 ; Chronic idiopathic constipation K59.04 ; Primary insomnia F51.01 ; Coarse tremors G25.2 ; Gastroesophageal reflux disease without esophagitis K21.9 ; Iron deficiency anemia secondary to inadequate dietary iron intake D50.8 and Vitamin deficiency, unspecified E56.9 [facility] [id number] [place] [address] 07031- 7491 Oct, [facility] [id number] [place] [address] 39870- 1525 Oct, [facility] [id number] [place] [address] 53768- 4769 Oct, [facility] [id number] [place] [address] 88745- 1800 Oct, Generalized anxiety disorder F41.1 ; Poor appetite R63.0 ; Dehydration E86.0 and Failure to thrive in adult R62.7 [facility] [id number] [place] [address] 93144- 3481 Oct, Generalized anxiety disorder F41.1 and Failure to thrive in adult R62.7 [facility] [id number] [place] [address] 79852- 8105 Oct, [facility] [address] 56833- 5636 Oct, [facility] [address] 61056 -1407 Sep, Vaginal discharge N89.8 and Acute cystitis with hematuria N30.01 [facility] [id number] [place] [address] 53875- 6117 Sep, [facility] [address] 82152- 2599 Sep, [facility] [id number] [place] [address] 10923- 7681 Sep, Dysthymic disorder F34.1 ; Acute vaginitis N76.0 ; Dysuria R30.0 and Vaginal yeast infection B37.3 [facility] [id number] [place] [address] 41118- 3235 Aug, [facility] [id number] [place] [address] 11385- 9970 Aug, [facility] [id number] [place] [address] 68471 -7812 Aug, Foul smelling urine R82.90 ; Rapid heart rate R00.0 and Flatulence R14.3 [facility] [id number] [place] [address] 24395- 1239 Aug, [facility] [id number] [place] [address] 83525- 9499 Jul, Constipation, unspecified constipation type K59.00 ; Weak R53.1 ; Poor appetite R63.0 ; Coronary artery disease involving andreafski heart without angina pectoris, unspecified vessel or lesion type I25.10 ; Fatigue, unspecified type R53.83 ; Urinary incontinence, unspecified type R32 and Insomnia, unspecified type G47.00 [facility] [address] 25105- 8770 Jul, [facility] [address] 92770- 6289 Jun, Dysuria R30.0 [facility] [address] 15146- 5818 Jun, [facility] [address] 79497- 5073 Jun, Urinary tract infection, site not specified N39.0 ; Acute vaginitis N76.0 and Diarrhea, unspecified type R19.7 [facility] [address] 33800- 8541 May, [facility] [address] 51166- 9550 April, [facility] [address] [id number] April, Encounter for dental examination Z01.20 [facility] [address] 39351- 4900 April, [facility] [address] 26573- 8260 April, Tremor R25.1 and Episodic tension-type headache, not intractable G44.219 [facility] [address] 72868- 1525 Mar, [facility] [address] 44473- 9810 Jan, Mood disorder F39 [facility] [address], [place] [address] Jan, [facility] [id number] [place] [address] 17064- 2325 Jan, [facility] [address], [place] [address]- 3673 Jan, [facility] [id number] [place] [address] 93131- 5259 Jan, [facility] [id number] [place] [address] 55385- 5910 Jan, [facility] [id number] [place] [address] 46171- 9937 Jan, [facility] [id number] [place] [address] 56767 -0742 Dec, Acute diarrhea R19.7 [facility] [id number] [place] [address] 14538- 6787 Dec, [facility] [address] [place] [address] 72512- 4648 Dec, [facility] [id number] [place] [address] 93053- 0804 Dec, [facility] [id number] [place] [address] 18563 -1742 Dec, N&V (nausea and vomiting) R11.2 [facility] [address], [place] [address]- 7154 Dec, Generalized anxiety disorder F41.1 [facility] [address] [place] [address] 68880- 2057 Dec, Generalized anxiety disorder F41.1 [facility] [address], [place] [address]- 3344 Nov, Post concussion syndrome F07.81 [facility] [id number] [place] [address] 89778772- 7905 Nov, Generalized anxiety disorder F41.1 [facility] [id number] [place] [address] 80455- 2843 Nov, [facility] [id number] [place] [address] 183701- 2564 Nov, Generalized anxiety disorder F41.1 [facility] [id number] [place] [address] [id number] Oct, Dental caries K02.9 [facility] [address] 29431- 4087 Oct, [facility] [address] [id number] Oct, Dental examination Z01.20 [facility] [address] [id number] Oct, Encounter for dental examination Z01.20 [facility] [id number] [place] [address] 21808- 1386 Oct, CAD (coronary artery disease) I25.10 [facility] [id number] [place] [address] 68978- 5540 Sep, Generalized anxiety disorder F41.1 [facility] [id number] [place] [address] 08017- 5437 Sep, [facility] [id number] [place] [address] 80021- 8799 Sep, Rash and other nonspecific skin eruption R21 and Yeast vaginitis B37.3 [facility] [id number] [place] [address] 85566- 6107 Sep, Generalized anxiety disorder F41.1 [facility] [id number] [place] [address] 86576- 9799 17 Aug, 2015 Insect bites 919.4 and Hemorrhoids 455.6 [facility] [address] [place] [address]- 0032 Aug, Generalized anxiety disorder 300.02 [facility] [id number] [place] [address] 92163- 3761 08 Aug, 2015 [facility] [id number] [place] [address] 77333- 3317 Aug, [facility] [id number] [place] [address] 19009- 0009 Aug, Generalized anxiety disorder 300.02 ; No condition on [place] II V71.09 ; Heart problem 429.9 and Hypertension 401.9 [facility] [id number] [place] [address] 60936- 8908 Aug, [facility] [id number] [place] [address] 07622- 5015 Jul, [facility] [id number] [place] [address] 03909- 5425 Jul, [facility] [id number] [place] [address] 79462- 5144 Jul, [facility] [id number] [place] [address] 97020- 8552 Jul, [facility] [id number] [place] [address] 69771- 6604 Jul, Rash 782.1 [facility] [id number] [place] [address] 49000- 3299 Jul, UTI (urinary tract infection) 599.0 [facility] [id number] [place] [address] 94199- 1340 Jul, [facility] [id number] [place] [address] 29973- 2628 Jun, Dysthymia 300.4 and Anxiety 300.00 [facility] [id number] [place] [address] 17121- 1365 Jun, 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 [facility] [address] [id number], [place] [address]- 2233 May, [facility] [address] [id number], [place] [address]- 0806 May, [facility] [address] [facility] [id number], [place] [address]- 9436 May, Unspecified breast screening V76.10 [facility] [address] [id number] [address] May, Dental examination V72.2 [facility] [address] [id number], [place] [address]- 7026 April, [facility] [address] [id number], [place] [address]- 8756 April, [facility] [address] [id number] April, Dental examination V72.2 [facility] [address] [id number] [id number] April, Dental examination V72.2 [facility] [address] [id number], [place] [address]- 2875 Mar, [facility] [address] [facility] [id number], [place] [address]- 4899 Mar, [facility] [address] [id number], [place] [address]- 4086 Jan, [facility] [address] [id number], [place] [address]- 6126 Jan, [facility] [address] [facility] [id number], [place] [address]- 8886 Jan, [facility] [address] [facility] [id number], [place]- 2696 Jan, [facility] [address] [id number], [place] [address]- 8006 Jan, [facility] [place] [facility] [address] [id number] [place] [address]- 6022 16 Jan, 2015 [facility] [place] [facility] [address] [id number] [place] [address]- 9208 13 Jan, 2015 [facility] [place] [facility] [address] [id number] [place] [address]- 1539 13 Jan, 2014 [facility] [place] [facility] [address] [id number] [place] [address]- 2235 11 Jan, 2014 [facility] [place] [facility] [address] [id number] [place] [address]- 6228 11 Jan, 2015 [facility] [place] [facility] [address] [id number] [place] [address]- 7173 Jan, [facility] [place] [facility] [address] [id number] [place] [address]- 0418 Jan, [facility] [place] [facility] [address] [id number] [place] [address]- 6321 Jan, [facility] [place] [facility] [address] [id number] [place] [address]- 7891 Jan, [facility] [place] [facility] [address] [id number] [place] [address]- 2062 Jan, 2014 [facility] [place] [facility] [address] [id number] [place] [address] Jan, 2014 [facility] [place] [facility] [address] [id number] [place] [address] Jan, 2014 [facility] [place] [facility] [address] [id number] [place] [address] Jan, 2014 [facility] [place] [facility] [address] [id number] [place] [address] Jan, 2014 [facility] [place] [facility] [address] [id number] [place] [address] Jan, 2014 [facility] [place] [facility] [address] [id number] [place] [address] Jan, [facility] [place] [facility] [address] [id number] [place] [address] Jan, [facility] [place] [facility] [address] [id number] [place] [address] Dec, [facility] [place] [facility] [address] [id number] [place] [address] Dec, [facility] [place] [facility] [address] [id number] [place] [address] Dec, [facility] [place] [facility] [address] [id number] [place] [address] Dec, [facility] [place] [facility] [address] [id number] [place] [address] Nov, [facility] [place] [facility] [address] [id number] [place] [address] Nov, [facility] [place] [facility] [address] [id number] [place] [address] Nov, [facility] [place] [facility] [address] [id number] [place] [address]- [address] Nov, [facility] [place] [facility] [address] [facility] [id number] [place] [address] Nov, [facility] [place] [facility] [address] [id number] [place] [address] Nov, [facility] [place] [facility] [address] [id number] [place] [address] Nov, [facility] [place] [facility] [address] [id number] [place] [address] Oct, [facility] [place] [facility] [address] [id number] [place] [address] Oct, [facility] [place] [facility] [address] [id number] [place] [address] Oct, [facility] [place] [facility] [address] [id number] [place] [address] Oct, [facility] [place] [facility] [address] [id number] [place] [address] Oct, [facility] [place] [facility] [address] [id number] [place] [address] Oct, [facility] [place] [facility] [address] [id number] [place] [address] Oct, [facility] [place] [facility] [address] [id number] [place] [address] Oct, [facility] [place] [facility] [address] [id number] [place] [address] Oct, [facility] [place] [facility] [address] [id number] [place] [address] Oct, [facility] [place] [facility] [address] [id number] [place] [address] Oct, [facility] [place] [facility] [address] [id number] [place] [address] Oct, [facility] [place] [facility] [address] [id number] [place] [address] Sep, [facility] [place] [facility] [address] [id number] [place] [address] Sep, [facility] [place] [facility] [address] [id number] [place] [address] Sep, [facility] [place] [facility] [address] [id number] [place] [address] Sep, [facility] [place] [facility] [address] [id number] [place] [address] Jul, [facility] [place] [facility] [address] [id number] [place] [address] Jul, [facility] [place] [facility] [address] [id number] [place] [address] Jul, [facility] [place] [facility] [address] [id number] [place] [address] Jul, [facility] [place] [facility] [address] [id number] [place] [address] Jun, [facility] [place] [facility] [address] [id number] [place] [address] Jun, [facility] [place] [facility] [address] [id number] [place] [address] Jun, [facility] [place] [facility] [address] [id number] [place] [address] Jun, [facility] [place] [facility] [address] [id number] [place] [address] May, [facility] [place] [facility] [address] [id number] [place] [address]164 May, [facility] [place] [facility] [address] [id number] [place] [address] April, [facility] [place] [facility] [address] [id number] [place] [address] April, [facility] [place] [facility] [address] [id number] [place] [address] 7859 April, [facility] [place] [facility] [address] [id number] [place] [address]858 April, [facility] [place] [facility] [address] [id number] [place] [address] 3821 April, [facility] [place] [facility] [address] [id number] [place] [address] April, [facility] [place] [facility] [address] [id number] [place] [address] April, [facility] [place] [facility] [address] [id number] [place] [address] 0331 April, [facility] [place] [facility] [address] [id number] [place] [address] April, [facility] [address] [id number] [place] [address] 88[address] Mar, [facility] [place] [facility] [address] [id number] [place] [address] 1186 Mar, [facility] [place] [facility] [address] [id number] [place] [address] 0047 Mar, [facility] [place] [facility] [address] [id number] [place] [address] 277[address] Mar, [facility] [place] [facility] [address] [id number] [place] [address] Jan, [facility] [place] [facility] [address] [id number] [place] [address] 9313 Jan, [facility] [place] [facility] [address] [id number] [place] [address] Jan, [facility] [place] [facility] [address] [id number] [place] [address] 3983 Jan, [facility] [place] [facility] [address] [id number] [place] [address] 8039 Jan, [facility] [place] [facility] [address] [id number] [place] [address] 6448 Jan, [facility] [place] [facility] [address] [id number] [place] [address] Jan, [facility] [place] [facility] [address] [id number] [place] [address] 1047 Jan, [facility] [place] [facility] [address] [id number] [place] [address] Jan, [facility] [place] [facility] [address] [id number] [place] [address]- 9736 Jan, [facility] [place] [facility] [address] [id number] [place] [address]- 4064 Jan, [facility] [place] [facility] [address] [id number] [place] [address]- 7305 Jan, [facility] [place] [facility] [address] [id number] [place] [address]- 6976 Dec, [facility] [place] [facility] [address] [id number] [place] [address]- 8727 Dec, [facility] [place] [facility] [address] [id number] [place] [address] 0509 Dec, [facility] [place] [facility] [address] [id number] [place] [address] 4883 Dec, [facility] [place] [facility] [address] [id number] [place] [address] 4989 Nov, [facility] [place] [facility] [address] [id number] [place] [address]- 9334 Nov, [facility] [place] [facility] [address] [id number] [place] [address] 9643 Nov, [facility] [place] [facility] [address] [id number] [place] [address] 0592 Nov, [facility] [place] [facility] [address] [id number] [place] [address]- 4984 Oct, [facility] [place] [facility] [address] [id number], [place] [address] Oct, [facility] [place] [facility] [address] [id number], [place] [address] Sep, [facility] [place] [facility] [address] [id number] [place] [address] 6359 Sep, [facility] [place] [facility] [address] [id number], [place] [address] Jul, [facility] [place] [facility] [address] [id number] [place] [address]243 Jul, [facility] [place] [facility] [address] [id number] [place] [address]- 0514 Jun, [facility] [address] [id number] [place] [address]- 5725 Jun, [facility] [address] [id number] [place] [address]561 Jun, [facility] [address] [id number] [place] [address]1 May, [facility] [address] [id number] [place] [address] 9698 May, [facility] [address] [id number] [place] [address] 5467 May, [facility] [address] [id number] [place] [address]- 5560 May, [facility] [address] [id number] [place] [address] 3034 May, [facility] [address] [id number] [place] [address] 3199 April, [facility] [address] [id number] [place] [address] 6170 April, [facility] [address] [id number] [place] [address] 2375 April, [facility] [address] [id number] [place] [address] 1815 April, [facility] [address] [id number] [place] [address]- 0618 April, [facility] [place] [facility] [address] [id number] [place] [address]- 0528 April, [facility] [address] [id number] [place] [address] Mar, [facility] [address] [id number] [place] [address]- 8461 15 Mar, 2013 [facility] [place] [facility] [address] [id number] [place] [address] 4036 Jan, [facility] [address] [id number] [place] [address]- 4926 Jan, [facility] [address] [id number] [place] [address] 3301 Jan, [facility] [address] [id number] [place] [address]- 3911 Jan, [facility] [address] [id number] [place] [address]- 6209 Jan, [facility] [address] [id number] [place] [address]- 7428 Jan, [facility] [address] [id number] [place] [address]- 2937 Jan, [facility] [address] [id number] [place] [address]- 7325 Jan, [facility] [address] [id number] [place] [address]- 3372 Jan, [facility] [address] [facility] [id number] [place] [address]- 5954 Jan, [facility] [address] [id number] [place] [address]- 6942 Jan, [facility] [address] [id number] [place] [address]- 0094 Dec, [facility] [address] [id number] [place] [address]- 5746 Nov, [facility] [address] [id number] [place] [address]- 2651 Nov, [facility] [place] [facility] [address] [id number] [place] [address]- 7094 Nov, [facility] [address] [id number] [place] [address]- 6283 26 Nov, 2012 [facility] [place] [facility] [address] [id number] [place] [address]- 4846 21 Nov, 2012 [facility] [place] [facility] [address] [id number] [place] [address] 20 Nov, 2012 [facility] [place] [facility] [address] [facility] [id number] [place] [address]- 7276 20 Nov, 2012 [facility] [place] [facility] [address] [id number] [place] [address]- 6851 19 Nov, 2012 [facility] [place] [facility] [address] [id number] [place] [address]- 3127 Nov, [facility] [place] [facility] [address] [facility] [id number] [place] [address]- 5022 18 Nov, 2012 [facility] [place] [facility] [address] [facility] [id number] [place] [address]- 6085 18 Nov, 2012 [facility] [place] [facility] [address] [id number] [place] [address]- 6255 Nov, [facility] [place] [facility] [address] [facility] [id number] [place] [address]- 0690 Nov, [facility] [place] [facility] [address] [facility] [id number] [place] [address]- 9571 Oct, [facility] [place] [facility] [address] [facility] [id number] [place] [address]- 1877 Oct, [facility] [place] [facility] [address] [facility] [id number], [place] [address]- 6763 Oct, [facility] [place] [facility] [address] [id number] [place] [address]- 6623 Sep, [facility] [place] [facility] [address] [facility] [id number] [place] [address]- 1932 Sep, [facility] [place] [facility] [address] [facility] [id number], [place] [address]- 6690 Sep, [facility] [place] [facility] [address] [id number] [place] [address]- 8132 10 Sep, 2012 [facility] [place] [facility] [address] [id number] [place] [address]- 2640 27 Aug, 2012 [facility] [place] [facility] [address] [id number] [place] [address]- 8293 20 Aug, 2012 [facility] [place] [facility] [address] [id number] [place] [address]- 4579 24 Jul, 2012 [facility] [place] [facility] [address] [id number] [place] [address]- 8876 May, [facility] [place] [facility] [address] [id number] [place] [address]- 5614 May, [facility] [place] [facility] [address] [id number] [place] [address]- 5666 May, [facility] [place] [facility] [address] [id number] [place] [address]- 7644 April, [facility] [place] [facility] [address] [id number] [place] [address]- 8583 Mar, [facility] [place] [facility] [address] [id number] [place] [address]- 7492 Mar, [facility] [place] [facility] [address] [id number] [place] [address]- 5589 Mar, [facility] [place] [facility] [address] [id number] [place] [address]- 1743 Jan, [facility] [place] [facility] [address] [id number] [place] [address]- 9670 Jan, [facility] [place] [facility] [address] [id number] [place] [address]- 7836 Jan, [facility] [place] [facility] [address] [id number] [place] [address]- 2169 Dec, [facility] [place] [facility] [address] [id number] [place] [address]- 6993 Dec, [facility] [place] [facility] [address] [id number] [place] [address]- 1788 Dec, [facility] [place] [facility] [address] [id number] [place] [address]- 8668 Dec, [facility] [place] [facility] [address] [id number] [place] [address]- 3721 Nov, [facility] [place] [facility] [address] [id number] [place] [address]- 0248 Nov, [facility] [place] [facility] [address] [id number] [place] [address]- 5905 Nov, [facility] [place] [facility] [address] [id number] [place] [address]- 4277 Oct, [facility] [place] [facility] [address] [id number] [place] [address]- 2678 Sep, [facility] [place] [facility] [address] [id number] [place] [address]- 1371 Sep, [facility] [place] [facility] [address] [id number] [place] [address]- 6987 Sep, [facility] [place] [facility] [address] [id number] [place] [address]- 0125 Nov, [facility] [place] [facility] [address] [id number], [place] [address]- 4548 Oct, [facility] [place] [facility] [address] [id number] [place] [address]- 4180 Oct, [facility] [place] [facility] [address] [id number] [place] [address]- 7068 18 Oct, 2010 [facility] [place] [facility] [address] [id number] [place] [address]- 2072 16 Oct, 2010 [facility] [place] [facility] [address] [id number] [place] [address]- 8131 11 Sep, 2010 [facility] [place] [facility] [id number], [place] [address]- 9[address] April, [facility] [id number], [place] [address]- 1267 Nov, [facility] [id number], [place] [address]- 3089 Nov, [facility] [id number], [place] [address]- 1338 Nov, [facility] [id number], [place] [address]- 1807 Nov, [facility] [id number] [place] [address]- 8104 Nov, [facility] [id number], [place] [address]- 7729 Oct, [facility] [id number], [place] [address]- 2468 Oct, [facility] [id number], [place] [address]- 5239 Sep, [facility] [id number], [place] [address]- 0099 Jan, IMMUNIZATIONS No Known Immunizations SOCIAL HISTORY [...] History Intertrechanteric hip fx 04/27/16 Hospitalization History [facility] (inpatient [facility] 2 times) Hx of 3 inpatient psych treatments in past in [place] oct 2016 [facility]
--- OUTSIDE RECORDS SUMMARY | 2018-08-20 12:41 | XMS REPORT ---
Author Author WOLF AGUIRRE [facility] Address [address] [place] [address] Care Team Providers Care Light Cleaner Name Role Phone WOLF AGUIRRE Unavailable PROBLEMS Type Condition ICD9-CM Code [id number] Code Onset Dates Condition Status SNOMED Code Problem Sundowning F05 Active 134398222 Problem Constipation, unspecified constipation type K59.00 Active 73250735 Problem Reactive depression F32.9 Active 37818244 Problem Vascular dementia with behavior disturbance F01.51 Active 625168354850108 Problem Insomnia, unspecified type G47.00 Active 712666445 Problem Generalized anxiety disorder F41.1 Active 45333685 Problem Other chronic pain G89.29 Active 21340433 Problem Severe episode of recurrent major depressive disorder, without psychotic features F33.2 Active 53372309 Problem Slow transit constipation K59.01 Active 40392851 Problem 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 Active 438605121 Problem Obsessive thinking F42.8 Active 19278638 Problem Failure to thrive in adult R62.7 Active 317733730 Problem Dysthymic disorder F34.1 Active 96504354 Problem Hypertension I10 Active 77888806 Problem Mood disorder F39 Active 44789217 Problem Irritable bowel syndrome with diarrhea K58.0 Active 356259644 Problem Oropharyngeal dysphagia R13.12 Active 92591279 Problem 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 Active 38844758 Problem Other chronic pain G89.29 Active 39217448 Problem Primary insomnia F51.01 Active 9861212 Problem Poor appetite R63.0 Active 47752303 Problem Atherosclerotic heart disease of [place] 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 Active 208405798108559 Problem Iron deficiency anemia secondary to inadequate dietary iron intake D50.8 Active 510215612 Problem Coarse tremors G25.2 Active 20130528 Problem Gastroesophageal reflux disease without esophagitis K21.9 Active 195226181 Problem Essential hypertension I10 Active 52152718 ALLERGIES No Information ENCOUNTERS Encounter Location Date Diagnosis [facility] [id number] [place] [address] 18286- 6420 Mar, [facility] [id number] [place] [address] 27476- 2383 Mar, [facility] [id number] [place] [address] 95896- 3560 Mar, [place] [address] 60650- 9347 Jan, [place] [id number] [place] [address] 38711- 8054 Jan, [facility] [address] [id number] Jan, Constipation, unspecified constipation type K59.00 and Other chronic pain G89.29 [place] [address] 41777- 7775 Jan, [facility] [address] [id number] Jan, Obsessive thinking F42.8 and Coarse tremors G25.2 [place] [id number] [place] [address] [id number] Jan, [place] [id number] [place] [address] [id number] Jan, [facility] [address] [id number] Jan, Generalized anxiety disorder F41.1 ; Obsessive thinking F42.8 ; Callus of foot L84 and 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 [place] [id number] [place] [address] 52390- 0965 Dec, Generalized anxiety disorder F41.1 and Severe episode of recurrent major depressive disorder, without psychotic features F33.2 [place] [id number] [place] [address] 00088- 8132 Nov, [place] [address] [address] 8526 Nov, [facility] [place] [address] [place] [id number] Nov, Oropharyngeal dysphagia R13.12 ; Generalized anxiety disorder F41.1 and 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 [facility] [address] [address] Nov, [facility] [id number] [id number] Nov, [facility] [address] 4184 Nov, [facility] [address] [address] Nov, [facility] [address] [address]- 2086 Oct, Constipation, unspecified constipation type K59.00 and Mood disorder F39 [facility] [address] 4[address] Oct, [facility] [id number] [address] Sep, [facility] [id number] [place] [id number] Sep, [facility] [id number] [place] [address] Sep, [facility] [id number] [place] [address] Sep, [facility] [place] [address] [place] [id number] Sep, Generalized abdominal pain R10.84 [facility] [id number] [address]- 2416 Sep, [facility] [id number] [place] [id number] Sep, Generalized anxiety disorder F41.1 and Primary insomnia F51.01 [facility] [id number] [place] [id number] Aug, [facility] [id number] [address] Aug, Generalized anxiety disorder F41.1 [facility] [address] [address]- 4836 Jul, [facility] [address] [id number] Jul, Obsessive thinking F42.8 [facility] [address] [address] 5245 Jul, Generalized anxiety disorder F41.1 and Irritable bowel syndrome with diarrhea K58.0 [facility] [id number] [place] [id number] Jul, Generalized anxiety disorder F41.1 [facility] [id number] [place] [address] [id number] Jun, Generalized anxiety disorder F41.1 [facility] [address] [address]- 1074 May, [facility] [address] [id number] May, Generalized anxiety disorder F41.1 ; Irritable bowel syndrome with diarrhea K58.0 and Coarse tremors G25.2 [facility] [address] [address]- 5222 April, [facility] [address] [address]- 4100 April, [facility] [address] [address]- 0037 April, [facility] [id number] [address]- 3580 Mar, [facility] [address] [id number] Mar, Severe episode of recurrent major depressive disorder, without psychotic features F33.2 and Pain in left hip M25.552 [facility] [id number] [place] [address] 81556- 6923 Mar, [facility] [id number] [place] [address] 15290- 1642 Mar, [facility] [id number] [place] [address] 50580- 1614 Mar, [place] [address] [place] [address] 85287- 4994 Mar, Pain in right hip M25.551 and Self-care deficit in patient living alone R46.89 [facility] [address] [place] [address] 21677 -7123 Jan, Other chronic pain G89.29 ; Pain in left hip M25.552 and Slow transit constipation K59.01 [place] [address] [place] [address] 09924- 6444 Jan, [place] [address] [place] [address] 13133- 7506 Dec, Other depression F32.89 ; Constipation, unspecified constipation type K59.00 and Insomnia, unspecified type G47.00 [place] [address] [place] [address] 66620- 0495 Nov, Reactive depression F32.9 ; Chronic idiopathic constipation K59.04 ; Generalized anxiety disorder F41.1 ; Coarse tremors G25.2 ; Gastroesophageal reflux disease without esophagitis K21.9 ; Dysthymic disorder F34.1 ; Vitamin deficiency, unspecified E56.9 and Primary insomnia F51.01 [place] [address] [place] [address] 89841- 6031 Nov, [place] [address] [place] [address] 79660- 7051 Nov, [place] [id number] [place] [address]- 1671 Nov, [facility] [id number] [place] [address] 37532- 5301 Nov, Reactive depression F32.9 ; Essential hypertension I10 ; Generalized anxiety disorder F41.1 ; Atherosclerotic heart disease of [place] 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 ; Pain in right hip M25.551 ; Other chronic pain G89.29 ; Chronic idiopathic constipation K59.04 ; Primary insomnia F51.01 ; Coarse tremors G25.2 ; Gastroesophageal reflux disease without esophagitis K21.9 ; Iron deficiency anemia secondary to inadequate dietary iron intake D50.8 and Vitamin deficiency, unspecified E56.9 [place] [address] [place] [address] 68729- 7445 Oct, [place] [address] 01600- 6153 Oct, [facility] [address] 97613- 8897 Oct, [facility] [address] [place] [address] 71086- 7592 Oct, Generalized anxiety disorder F41.1 ; Poor appetite R63.0 ; Dehydration E86.0 and Failure to thrive in adult R62.7 [place] [address] [place] [address] 82759- 2014 Oct, Generalized anxiety disorder F41.1 and Failure to thrive in adult R62.7 [place] [address] [place] [address] 29309- 8843 Oct, [facility] [address] 71266- 8764 Oct, [facility] [address] [place] [address] 59785 -5440 Sep, Vaginal discharge N89.8 and Acute cystitis with hematuria N30.01 [place] [address] [place] [address]- 6546 Sep, [facility] [address] [place] [address] 23015- 8758 Sep, [facility] [address] [place] [address] 80257- 8817 Sep, Dysthymic disorder F34.1 ; Acute vaginitis N76.0 ; Dysuria R30.0 and Vaginal yeast infection B37.3 [facility] [address] [place] [address] 03828- 1621 Aug, [facility] [address] 33720- 8635 Aug, [facility] [address] [place] [address] 24617 -1352 Aug, Foul smelling urine R82.90 ; Rapid heart rate R00.0 and Flatulence R14.3 [place] [address] [place] [address] 26960- 1853 Aug, [facility] [address] [place] [address] 23083- 8641 Jul, Constipation, unspecified constipation type K59.00 ; Weak R53.1 ; Poor appetite R63.0 ; Coronary artery disease involving [place] heart without angina pectoris, unspecified vessel or lesion type I25.10 ; Fatigue, unspecified type R53.83 ; Urinary incontinence, unspecified type R32 and Insomnia, unspecified type G47.00 [facility] [address] [place] [address] 01047- 9315 Jul, [facility] [address] [place] [address] 25531- 0343 Jun, Dysuria R30.0 [place] [address] [place] [address] 40827- 1403 Jun, [facility] [address] [place] [address] 04691- 1459 Jun, Urinary tract infection, site not specified N39.0 ; Acute vaginitis N76.0 and Diarrhea, unspecified type R19.7 [facility] [address] [place] [address] 75464- 0969 May, [facility] [address] [place] [address] 71371- 2718 April, [facility] [id number] [place] [address] [id number] April, Encounter for dental examination Z01.20 [facility] [address] [place] [address] 23599- 9631 April, [facility] [address] [place] [address] 20344- 1220 April, Tremor R25.1 and Episodic tension-type headache, not intractable G44.219 [facility] [address] [place] [address] 68321- 5086 Mar, [facility] [address] [place] [address] 60756- 0770 Jan, Mood disorder F39 [facility] [address] [place] [address] 18821 -8496 Jan, [facility] [address] [place] [address] 34500- 8687 Jan, [facility] [address] [place] [address] 10845- 2104 Jan, [facility] [address] [place] [address] 12313- 2865 Jan, [facility] [address] [place] [address] 90657- 7889 Jan, [facility] [address] [place] [address] 39364- 6366 Jan, [facility] [address] [place] [address] 19726 -6670 Dec, Acute diarrhea R19.7 [facility] [address] [place] [address] 92877- 8043 Dec, [facility] [address] [place] [address] 91658- 1999 Dec, [facility] [address] [place] [address] 92651- 2344 Dec, [facility] [address] [place] [address] 26148 -7689 Dec, N&V (nausea and vomiting) R11.2 [facility] [address] [place] [address] 88258- 2232 Dec, Generalized anxiety disorder F41.1 [facility] [address] [place] [address] 06573- 6481 Dec, Generalized anxiety disorder F41.1 [facility] [address] [place] [address] 82696- 6632 Nov, Post concussion syndrome F07.81 [facility] [address] 86287- 8039 Nov, Generalized anxiety disorder F41.1 [facility] [address] [place] [address] 05013- 7030 Nov, [facility] [address] [place] [address] 38623- 0849 Nov, Generalized anxiety disorder F41.1 [facility] [address] [place] [address] [id number] Oct, Dental caries K02.9 [facility] [address] [place] [address] 81171- 6715 Oct, [facility] [address] [place] [address] [id number] Oct, Dental examination Z01.20 [facility] [id number] [place] [address] [id number] 10 Oct, 2015 Encounter for dental examination Z01.20 [facility] [address] 95567- 0118 Oct, CAD (coronary artery disease) I25.10 [facility] [address] 25123- 4119 Sep, Generalized anxiety disorder F41.1 [facility] [address] 34815- 5459 Sep, [facility] [address] 62978- 7578 Sep, Rash and other nonspecific skin eruption R21 and Yeast vaginitis B37.3 [place] [address] 46365- 0511 Sep, Generalized anxiety disorder F41.1 [facility] [address] 79745- 4750 Aug, Insect bites 919.4 and Hemorrhoids 455.6 [facility] [address] 78589- 5946 Aug, Generalized anxiety disorder 300.02 [facility] [address] [place] [address] 97925- 1173 08 Aug, 2015 [facility] [address] 20534- 5558 Aug, [facility] [address] 64366- 2514 Aug, Generalized anxiety disorder 300.02 ; No condition on [place] V71.09 ; Heart problem 429.9 and Hypertension 401.9 [facility] [address] [place] [address] 90530- 9357 Aug, [facility] [address] 78825- 9531 Jul, [facility] [id number] [address]- 3762 Jul, [facility] [address] [address]- 9963 Jul, [facility] [address] [address]- 2487 Jul, [facility] [address] [place] [address] 24362- 5986 Jul, Rash 782.1 [facility] [address] [place] [address] 69079- 3976 Jul, UTI (urinary tract infection) 599.0 [facility] [address] [address]- 6265 Jul, [facility] [address] [place] [address] 50920- 4829 Jun, Dysthymia 300.4 and Anxiety 300.00 [facility] [address] [address]- 5199 Jun, 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 [facility] [address] [address]- 0354 May, [facility] [address] [address]- 8829 May, [facility] [id number] [address]- 5778 May, Unspecified breast screening V76.10 [facility] [address] [id number] [id number] May, Dental examination V72.2 [facility] [address] [address]- 3421 April, [facility] [id number] [address]- 0769 April, [facility] [place] [facility] [address] [id number] [id number] April, Dental examination V72.2 [facility] [address] [id number] [place] [id number] April, Dental examination V72.2 [facility] [address] [id number] [place] [address]- 4082 14 Mar, 2015 [facility] [place] [facility] [address] [id number] [place] [address]- 3974 Mar, [facility] [place] [facility] [address] [id number] [place] [address]- 0028 25 Jan, 2015 [facility] [place] [facility] [address] [id number] [place] [address]- 8896 25 Jan, 2015 [facility] [place] [facility] [address] [id number] [place] [address]- 1422 18 Jan, 2015 [facility] [place] [facility] [address] [id number] [place] [address]- 1286 18 Jan, 2015 [facility] [place] [facility] [address] [id number] [place] [address]- 1021 16 Jan, 2015 [facility] [place] [facility] [address] [id number] [place] [address]- 8006 16 Jan, 2015 [facility] [place] [facility] [address] [id number] [place] [address]- 8362 13 Jan, 2015 [facility] [place] [facility] [address] [id number] [place]- 7456 13 Jan, 2015 [facility] [place] [facility] [address] [id number] [place]- 7619 11 Jan, 2015 [facility] [place] [facility] [address] [id number] [place]- 8356 11 Jan, 2015 [facility] [place] [facility] [address] [id number] [place]- 2681 11 Jan, 2015 [facility] [place] [facility] [address] [id number] [place] [address]- 3807 Jan, [facility] [place] [facility] [address] [id number] [place] [address]- 3441 Jan, [facility] [place] [facility] [address] [id number] [place] [address]- 4475 Jan, [facility] [place] [facility] [address] [id number] [place] [address]- 8446 Jan, 2014 [facility] [place] [facility] [address] [id number] [place] [address]- 1642 Jan, 2014 [facility] [place] [facility] [address] [id number] [place] [address]- 1826 Jan, 2014 [facility] [place] [facility] [address] [id number] [place] [address]- 2530 Jan, 2014 [facility] [place] [facility] [address] [facility] [id number] [place] [address]- 7267 Jan, [facility] [place] [facility] [address] [facility] [id number] [place] [address]- 7449 Jan, [facility] [place] [facility] [address] [facility] [id number] [place] [address]- 6936 Jan, [facility] [place] [facility] [address] [facility] [id number] [place] [address]- 1924 Jan, [facility] [place] [facility] [address] [facility] [id number] [place] [address]- 5600 Dec, [facility] [place] [facility] [address] [id number] [place] [address]- 0355 Dec, [facility] [place] [facility] [address] [id number] [place] [address]- 4717 Dec, [facility] [place] [facility] [address] [facility] [id number] [place] [address]- 8187 Dec, [facility] [place] [facility] [address] [facility] [id number] [place] [address]- 2838 Nov, [facility] [place] [facility] [address] [id number] [place] [address]- 6335 Nov, [facility] [place] [facility] [address] [id number] [place] [address]- 6533 Nov, [facility] [place] [facility] [address] [id number] [place] [address]- 2089 Nov, [facility] [place] [facility] [address] [id number] [place] [address]- 4531 Nov, [facility] [place] [facility] [address] [id number] [place] [address]- 4813 Nov, [facility] [place] [facility] [address] [id number] [place] [address]- 9383 Nov, [facility] [place] [facility] [address] [id number] [place] [address]- 1787 Oct, [facility] [place] [facility] [address] [id number] [place] [address] Oct, [facility] [place] [facility] [address] [id number] [place] [address] Oct, [facility] [place] [facility] [address] [id number] [place] [address] Oct, [facility] [place] [facility] [address] [id number] [place] [address] Oct, [facility] [place] [facility] [address] [id number] [place] [address] Oct, [facility] [place] [facility] [address] [id number] [place] [address] Oct, [facility] [place] [facility] [address] [id number] [place] [address] Oct, [facility] [place] [facility] [address] [id number] [place] [address] Oct, [facility] [place] [facility] [address] [id number] [place] [address] Oct, [facility] [place] [facility] [address] [id number] [place] [address] Oct, [facility] [place] [facility] [address] [id number] [place] [address] Oct, [facility] [place] [facility] [address] [id number] [place] [address] Sep, [facility] [place] [facility] [address] [id number] [place] [address] Sep, [facility] [place] [facility] [address] [id number] [place] [address] Sep, [facility] [place] [facility] [address] [id number] [place] [address] Sep, [facility] [place] [facility] [address] [id number] [place] [address] Jul, [facility] [place] [facility] [address] [id number] [place] [address] Jul, [facility] [place] [facility] [address] [id number] [place] [address] Jul, [facility] [place] [facility] [address] [facility] [id number] [place] [address] Jul, [facility] [place] [facility] [address] [id number] [place] [address] Jun, [facility] [place] [facility] [address] [id number] [place] [address] Jun, [facility] [place] [facility] [address] [id number] [place] [address] Jun, [facility] [place] [facility] [address] [id number] [place] [address] Jun, [facility] [place] [facility] [address] [facility] [id number] [place] [address] May, [facility] [place] [facility] [address] [id number] [place] [address] May, [facility] [place] [facility] [address] [id number] [place] [address] April, [facility] [place] [facility] [address] [id number] [place] [address] April, [facility] [place] [facility] [address] [id number] [place] [address]478 April, [facility] [place] [facility] [address] [id number] [place] [address] April, [facility] [place] [facility] [address] [id number] [place] [address] April, [facility] [place] [facility] [address] [id number] [place] [address] April, [facility] [place] [facility] [address] [id number] [place] [address] April, [facility] [place] [facility] [address] [id number] [place] [address] April, [facility] [place] [facility] [address] [id number] [place] [address] 7068 April, [facility] [place] [facility] [address] [id number] [place] [address] Mar, [facility] [place] [facility] [address] [id number] [place] [address] 9215 Mar, [facility] [place] [facility] [address] [id number] [place] [address] Mar, [facility] [place] [facility] [address] [id number] [place] [address] 3032 Mar, [facility] [place] [facility] [address] [id number] [place] [address] 12[address] Jan, [facility] [place] [facility] [address] [id number] [place] [address] 1697 Jan, [facility] [place] [facility] [address] [id number] [place] [address]- 9038 Jan, [facility] [place] [facility] [address] [id number] [place] [address] 39[address] Jan, [facility] [place] [facility] [address] [id number] [place] [address]- 93[address] Jan, [facility] [place] [facility] [address] [id number] [place] [address]100 Jan, [facility] [place] [facility] [address] [id number] [place] [address]- 8252 Jan, [facility] [place] [facility] [address] [id number] [place] [address]- 1510 Jan, [facility] [place] [facility] [address] [id number] [place] [address]- 9065 Jan, [facility] [place] [facility] [address] [id number] [place] [address]- 5869 Jan, [facility] [place] [facility] [address] [id number] [place] [address]- 2817 Jan, [facility] [place] [facility] [address] [id number] [place] [address] 3342 Jan, [facility] [place] [facility] [address] [id number] [place] [address] 1196 Dec, [facility] [place] [facility] [address] [id number] [place] [address]- 1735 Dec, [facility] [place] [facility] [address] [id number] [place] [address] Dec, [facility] [place] [facility] [address] [id number] [place] [address]- 8028 Dec, [facility] [place] [facility] [address] [id number] [place] [address] 7271 Nov, [facility] [place] [facility] [address] [id number] [place] [address] 2680 Nov, [facility] [address] [id number] [place] [address]- 7671 Nov, [facility] [place] [facility] [address] [id number] [place] [address]- 3842 Nov, [facility] [address] [id number] [place] [address]- [address]390 Oct, [facility] [place] [facility] [address] [id number] [place] [address] 5563 Oct, [facility] [address] [id number] [place] [address]125 Sep, [facility] [address] [id number] [place] [address]- 0737 Sep, [facility] [address] [id number] [place] [address] 9416 Jul, [facility] [address] [id number] [place] [address] 1799 Jul, [facility] [address] [id number] [place] [address] 3812 Jun, [facility] [address] [id number] [place] [address]- 8652 Jun, [facility] [place] [facility] [address] [id number] [place] [address]- 2905 Jun, [facility] [place] [facility] [address] [id number] [place] [address] 3361 May, [facility] [place] [facility] [address] [id number] [place] [address]- 8826 May, [facility] [place] [facility] [address] [id number] [place] [address]- [address]46 17 May, 2013 [facility] [place] [facility] [address] [id number] [place] [address]307 May, [facility] [address] [id number] [place] [address] 9885 May, [facility] [place] [facility] [address] [id number] [place] [address]- 2425 April, [facility] [address] [id number] [place] [address] 8552 April, [facility] [place] [facility] [address] [id number] [place] [address] 4337 April, [facility] [address] [id number] [place] [address]- 7873 April, [facility] [place] [facility] [address] [id number] [place] [address] April, [facility] [address] [id number] [place] [address]- 1344 April, [facility] [address] [id number] [place] [address]- 7026 Mar, [facility] [place] [facility] [address] [id number] [place] [address] 9319 Mar, [facility] [address] [id number] [place] [address] 1973 Jan, [facility] [place] [facility] [address] [id number] [place] [address] 1213 Jan, [facility] [place] [facility] [address] [id number] [place] [address] 6095 Jan, [facility] [place] [facility] [address] [id number] [place] [address]- 5431 Jan, [facility] [place] [facility] [address] [id number] [place] [address]- 8253 Jan, [facility] [place] [facility] [address] [id number] [place] [address]- 9859 Jan, [facility] [place] [facility] [address] [id number] [place] [address]- 2460 05 Jan, 2012 [facility] [address] [id number] [place] [address]- 5456 04 Jan, 2012 [facility] [address] [id number] [place] [address] 2546 Jan, 2012 [facility] [address] [id number] [place] [address] 2546 Jan, 2012 [facility] [address] [id number] [place] [address] 2546 Jan, [facility] [address] [id number] [place] [address]- 3635 Dec, [facility] [address] [id number] [place] [address]- 3284 Nov, [facility] [address] [id number] [place] [address]- 1136 Nov, [facility] [address] [id number] [place] [address]- 8943 Nov, [facility] [address] [id number] [place] [address]- 6251 Nov, [facility] [address] [facility] [id number] [place] [address]- 2544 Nov, [facility] [address] [id number] [place] [address] 2546 Nov, [facility] [address] [id number] [place] [address] 2546 Nov, [facility] [address] [id number] [place] [address] 2546 Nov, [facility] [address] [id number] [place] [address]- 2546 Nov, [facility] [address] [facility] [id number] [place] [address]- 1298 18 Nov, 2012 [facility] [place] [facility] [address] [id number] [place] [address]- 1209 18 Nov, 2012 [facility] [place] [facility] [address] [id number] [place] [address]- 1966 Nov, [facility] [place] [facility] [address] [id number] [place] [address]- 1749 Nov, [facility] [place] [facility] [address] [id number] [place] [address]- 1196 Oct, [facility] [place] [facility] [address] [id number] [place] [address]- 4444 Oct, [facility] [place] [facility] [address] [id number] [place] [address]- 1726 Oct, [facility] [place] [facility] [address] [facility] [id number] [place] [address]- 1967 Sep, [facility] [place] [facility] [address] [id number] [place] [address]- 9266 Sep, [facility] [place] [facility] [address] [facility] [id number] [place] [address]- 8396 Sep, [facility] [place] [facility] [address] [facility] [id number] [place] [address]- 8365 Sep, [facility] [place] [facility] [address] [facility] [id number] [place] [address]- 7518 27 Aug, 2012 [facility] [place] [facility] [address] [id number] [place] [address]- 9811 20 Aug, 2012 [facility] [place] [facility] [address] [id number] [place] [address]- 9262 24 Jul, 2012 [facility] [place] [facility] [address] [id number] [place] [address]- 9606 27 May, 2012 [facility] [place] [facility] [address] [facility] [id number] [place] [address]- 0957 14 May, 2012 [facility] [place] [facility] [address] [id number] [place] [address]- 4446 14 May, 2012 [facility] [address] [id number] [place] [address]- 4325 April, [facility] [place] [facility] [address] [id number] [place] [address]- 7706 Mar, [facility] [place] [facility] [address] [id number] [place] [address]- 9832 Mar, [facility] [place] [facility] [address] [id number] [place] [address]- 1892 Mar, [facility] [address] [id number] [place] [address]- 9512 Jan, [facility] [place] [facility] [address] [id number] [place] [address]- 9130 Jan, [facility] [address] [id number] [place] [address]- 3183 Jan, [facility] [place] [facility] [address] [id number] [place] [address]- 4412 Dec, [facility] [address] [id number] [place] [address]- 0117 Dec, [facility] [place] [facility] [address] [facility] [id number] [place] [address]- 2318 Dec, [facility] [address] [id number] [place] [address]- 9658 Dec, [facility] [place] [facility] [address] [id number] [place] [address]- 5751 Nov, [facility] [place] [facility] [address] [id number] [place] [address]- 8112 15 Nov, 2011 [facility] [place] [facility] [address] [id number] [place] [address]- 0963 Nov, [facility] [place] [facility] [address] [facility] [id number] [place] [address]- 2390 Oct, [facility] [place] [facility] [address] [id number] [place] [address]- 0429 31 Sep, 2011 [facility] [place] [facility] [address] [id number] [place] [address]- 5636 26 Sep, 2011 [facility] [place] [facility] [address] [id number] [place] [address]- 9966 13 Sep, 2011 [facility] [place] [facility] [address] [id number] [place] [address]- 0946 15 Nov, 2010 [facility] [place] [facility] [address] [id number] [place] [address]- 5355 23 Oct, 2010 [facility] [place] [facility] [address] [id number] [place] [address]- 7687 Oct, [facility] [place] [facility] [address] [id number] [place] [address]- 7248 18 Oct, 2010 [facility] [place] [facility] [address] [id number] [place] [address]- 8224 16 Oct, 2010 [facility] [place] [facility] [address] [id number] [place] [address]- 9491 Sep, [facility] [place] [facility] [address] [id number] [place] [address]- 4119 April, [facility] [place] [facility] [address] [id number] [place] [address]- 8760 29 Nov, 2009 [facility] [place] [facility] [address] [id number] [place] [address]- 0829 24 Nov, 2009 [facility] [place] [facility] [address] [id number] [place] [address]- 2541 22 Nov, 2009 [facility] [place] [facility] [address] [id number] [place] [address] 2546 10 Nov, 2009 [facility] [place] [facility] [address] [id number] [place] [address]- 2546 Nov, [facility] [place] [facility] [address] [id number] [place] [address]- 2548 Oct, [facility] [address] [facility] [id number] [place] [address]- 2546 Oct, [facility] [address] [facility] [id number] [place] [address]- 2546 Sep, [facility] [address] [facility] [id number] [place] [address]- 2546 Jan, IMMUNIZATIONS No Known Immunizations SOCIAL HISTORY [...] thoughts Medical History Depression Medical History At [facility] 04/2016 Started on Eliquis Medical History Anemia 04/2016 postsurgical hip fx Surgical History right hip replacement w/ Dr. Bruce 2011 Surgical History triple bypass surgery 2003 Surgical History S/P left hip IM Nail (Intertrechanteric hip fx) 04/28/16 Hospitalization History surgeries Hospitalization History Hypertension Hospitalization History ER for a concussion 11/24/15 Hospitalization History Intertrechanteric hip fx 04/27/16 Hospitalization History [facility] (inpatient [facility] 2 times) Hx of 3 inpatient psych treatments in past in [place] oct 2016 [facility] 2016
--- OUTSIDE RECORDS SUMMARY | 2018-08-20 12:42 | XMS REPORT ---
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 Name Role Phone WOLF AGUIRRE Unavailable PROBLEMS Type Condition ICD9-CM Code [id number] Code Onset Dates Condition Status SNOMED Code Problem Sundowning F05 Active 317882833 Problem Constipation, unspecified constipation type K59.00 Active 53803381 Problem Reactive depression F32.9 Active 98557118 Problem Vascular dementia with behavior disturbance F01.51 Active 157121783409326 Problem Insomnia, unspecified type G47.00 Active 104496778 Problem Generalized anxiety disorder F41.1 Active 58014287 Problem Other chronic pain G89.29 Active 70413559 Problem Severe episode of recurrent major depressive disorder, without psychotic features F33.2 Active 05218232 Problem Slow transit constipation K59.01 Active 63469165 Problem 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 Active 177545048 Problem Obsessive thinking F42.8 Active 72668263 Problem Failure to thrive in adult R62.7 Active 772502113 Problem Dysthymic disorder F34.1 Active 59496390 Problem Hypertension I10 Active 18601998 Problem Mood disorder F39 Active 17146364 Problem Irritable bowel syndrome with diarrhea K58.0 Active 013235765 Problem Oropharyngeal dysphagia R13.12 Active 90313033 Problem 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 Active 37350333 Problem Other chronic pain G89.29 Active 73426150 Problem Primary insomnia F51.01 Active 2533854 Problem Poor appetite R63.0 Active 79318670 Problem Atherosclerotic heart disease of [place] 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 Active 434129243398511 Problem Iron deficiency anemia secondary to inadequate dietary iron intake D50.8 Active 129300267 Problem Coarse tremors G25.2 Active 12888326 Problem Gastroesophageal reflux disease without esophagitis K21.9 Active 993198046 Problem Essential hypertension I10 Active 24276062 ALLERGIES No Information ENCOUNTERS Encounter Location Date Diagnosis [place] [id number] [address] April, Rash of face R21 [place] [address] [id number] [place] [address] 32653- 4655 Mar, [place] [id number] [place] [address] 06895- 0544 Mar, [place] [id number] [place] [address] 35595- 2707 Mar, [place] [id number] [place] [address] 53596- 0460 Jan, [place] [address] [id number] [place] [address] 35459- 6776 Jan, [facility] [address] [place] [id number] Jan, Constipation, unspecified constipation type K59.00 and Other chronic pain G89.29 [place] [id number] [place] [address] 38293- 4396 Jan, [facility] [address] [place] [id number] Jan, Obsessive thinking F42.8 and Coarse tremors G25.2 [place] [address] [id number] [place] [address] [id number] Jan, [place] [address] [address] [id number] [place] [address] [id number] Jan, [facility] [address] [place] [id number] Jan, Generalized anxiety disorder F41.1 ; Obsessive thinking F42.8 ; Callus of foot L84 and 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 [place] [address] [address] 7002 Dec, Generalized anxiety disorder F41.1 and Severe episode of recurrent major depressive disorder, without psychotic features F33.2 [place] [address] [address] 9877 Nov, [facility] [address] [place] [address] 01871- 3122 Nov, [facility] [address] [place] [id number] Nov, Oropharyngeal dysphagia R13.12 ; Generalized anxiety disorder F41.1 and 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 [id number] [place] [address] [id number] Nov, [facility] [id number] [place] [address] 57954- 6793 Nov, [facility] [id number] [place] [address] 33282- 1102 Nov, [facility] [id number] [place] [address] 30136- 0573 Oct, Constipation, unspecified constipation type K59.00 and Mood disorder F39 [facility] [id number] [place] [address] 58077- 2980 Oct, [facility] [id number] [place] [address] [id number] Sep, [facility] [id number] [place] [address] [id number] Sep, [facility] [id number] [place] [address] [id number] Sep, [facility] [id number] [place] [address] [id number] Sep, [facility] [address] [place] [id number] Sep, Generalized abdominal pain R10.84 [facility] [id number] [place] [address] 38154- 3239 Sep, [facility] [place] [id number] [id number] Sep, Generalized anxiety disorder F41.1 and Primary insomnia F51.01 [facility] [place] [id number] [place] [id number] Aug, [facility] [place] [id number] [id number] Aug, Generalized anxiety disorder F41.1 [facility] [id number] [address]- 9684 Jul, [facility] [address] [place] [id number] Jul, Obsessive thinking F42.8 [facility] [address] [address]- 7164 Jul, Generalized anxiety disorder F41.1 and Irritable bowel syndrome with diarrhea K58.0 [facility] [place] [id number] [place] [id number] Jul, Generalized anxiety disorder F41.1 [facility] [place] [id number] [place] [id number] Jun, Generalized anxiety disorder F41.1 [facility] [address] [place] [id number] [address] 6888 May, [facility] [address] [place] [id number] May, Generalized anxiety disorder F41.1 ; Irritable bowel syndrome with diarrhea K58.0 and Coarse tremors G25.2 [facility] [address] [place] [id number] [address] April, [facility] [address] [address] 8647 April, [facility] [address] [place] [id number] [address] 2411 April, [facility] [address] [address]- 5437 Mar, [facility] [address] [place] [id number] Mar, Severe episode of recurrent major depressive disorder, without psychotic features F33.2 and Pain in left hip M25.552 [facility] [address] [place] [address] 04034- 3327 Mar, [facility] [address] [place] [id number] [place] [address] 54440- 1182 Mar, [facility] [address] [place] [id number] [place] [address] 19099- 2600 Mar, [place] [address] [place] [id number] [place] [address] 09725- 2142 Mar, Pain in right hip M25.551 and Self-care deficit in patient living alone R46.89 [facility] [id number] [place] [address] 35499 -6151 Jan, Other chronic pain G89.29 ; Pain in left hip M25.552 and Slow transit constipation K59.01 [place] [address] [place] [id number] [place] [address] 55942- 0480 Jan, [place] [address] [id number] [place] [address] 33320- 7116 Dec, Other depression F32.89 ; Constipation, unspecified constipation type K59.00 and Insomnia, unspecified type G47.00 [facility] [address] [id number] [place] [address] 90597- 9663 Nov, Reactive depression F32.9 ; Chronic idiopathic constipation K59.04 ; Generalized anxiety disorder F41.1 ; Coarse tremors G25.2 ; Gastroesophageal reflux disease without esophagitis K21.9 ; Dysthymic disorder F34.1 ; Vitamin deficiency, unspecified E56.9 and Primary insomnia F51.01 [place] [address] [place] [id number] [place] [address] 72362- 2128 Nov, [place] [address] [place] [id number] [place] [address] 35144- 3727 Nov, [place] [address] [place] [address] [id number] [place] [address] 89532- 8539 Nov, [place] [address] [place] [id number] [place] [address] 72116- 3871 07 Nov, 2016 Reactive depression F32.9 ; Essential hypertension I10 ; Generalized anxiety disorder F41.1 ; Atherosclerotic heart disease of [place] 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 ; Pain in right hip M25.551 ; Other chronic pain G89.29 ; Chronic idiopathic constipation K59.04 ; Primary insomnia F51.01 ; Coarse tremors G25.2 ; Gastroesophageal reflux disease without esophagitis K21.9 ; Iron deficiency anemia secondary to inadequate dietary iron intake D50.8 and Vitamin deficiency, unspecified E56.9 [place] [address] [place] [id number] [place] [address] 78432- 6765 Oct, [place] [address] [place] [id number] [place] [address] 38255- 8803 Oct, [place] [address] [place] [id number] [place] [address] 86099- 9454 Oct, [place] [address] [place] [id number] [place] [address] 16241- 9479 16 Oct, 2016 Generalized anxiety disorder F41.1 ; Poor appetite R63.0 ; Dehydration E86.0 and Failure to thrive in adult R62.7 [place] [address] [place] [id number] [place] [address] 07409- 9704 07 Oct, 2016 Generalized anxiety disorder F41.1 and Failure to thrive in adult R62.7 [place] [address] [place] [id number] [place] [address] 39727- 6411 Oct, [place] [address] [place] [address] [id number] [place] [address] 63495- 0622 Oct, [facility] [address] [id number] [place] [address] 90815 -4614 Sep, Vaginal discharge N89.8 and Acute cystitis with hematuria N30.01 [facility] [id number] [place] [address] 32403- 8320 Sep, [facility] [address] [place] [id number] [place] [address] 19759- 5109 Sep, [facility] [address] 58311- 6507 Sep, Dysthymic disorder F34.1 ; Acute vaginitis N76.0 ; Dysuria R30.0 and Vaginal yeast infection B37.3 [place] [address] 95845- 6806 Aug, [place] [address] 23852- 6673 Aug, [facility] [address] 05721 -7595 Aug, Foul smelling urine R82.90 ; Rapid heart rate R00.0 and Flatulence R14.3 [place] [address] [id number] [place] [address] 27364- 3712 Aug, [facility] [address] [place] [id number] [place] [address] 37744- 2357 Jul, Constipation, unspecified constipation type K59.00 ; Weak R53.1 ; Poor appetite R63.0 ; Coronary artery disease involving [place] heart without angina pectoris, unspecified vessel or lesion type I25.10 ; Fatigue, unspecified type R53.83 ; Urinary incontinence, unspecified type R32 and Insomnia, unspecified type G47.00 [facility] [address] [place] [id number] [place] [address] 63766- 3360 Jul, [facility] [address] [place] [id number] [place] [address] 85628- 6373 Jun, Dysuria R30.0 [facility] [address] [id number] [place] [address] 02249- 8538 Jun, [facility] [address] [address]- 6219 Jun, Urinary tract infection, site not specified N39.0 ; Acute vaginitis N76.0 and Diarrhea, unspecified type R19.7 [facility] [address] [address]- 9025 May, [facility] [id number] [place] [address] 53664- 4854 April, [facility] [address] [place] [id number] [place] [address] [id number] April, Encounter for dental examination Z01.20 [facility] [id number] [place] [address] 46232- 7339 April, [facility] [id number] [place] [address] 77196- 6199 April, Tremor R25.1 and Episodic tension-type headache, not intractable G44.219 [facility] [address] [id number] [address]- 1102 Mar, [facility] [address] [place] [id number] [place] [address] 10435- 7404 Jan, Mood disorder F39 [facility] [address] [address]2696 Jan, [facility] [address] [address]- 6888 Jan, [facility] [address] [address]- 7574 Jan, [facility] [id number] [place] [address] 00846- 2244 Jan, [facility] [address] [address]- 2232 Jan, [facility] [id number] [address]- 8842 03 Jan, 2016 [facility] [id number] [place] [address] 90272 -1961 Dec, Acute diarrhea R19.7 [facility] [id number] [place] [address] 29991- 2674 Dec, [facility] [id number] [place] [address] 49873- 1858 Dec, [facility] [id number] [place] [address] 48161- 6210 Dec, [facility] [id number] [place] [address] 83730 -7633 Dec, N&V (nausea and vomiting) R11.2 [facility] [id number] [place] [address] 01199- 9927 Dec, Generalized anxiety disorder F41.1 [facility] [id number] [place] [address] 08272- 5217 Dec, Generalized anxiety disorder F41.1 [facility] [id number] [place] [address] 49665- 8007 Nov, Post concussion syndrome F07.81 [facility] [id number] [place] [address] 27941- 4487 Nov, Generalized anxiety disorder F41.1 [facility] [id number] [place] [address] 25882- 7972 Nov, [facility] [address] [place] [address] 32756- 8147 Nov, Generalized anxiety disorder F41.1 [facility] [address] [place] [address] [id number] Oct, Dental caries K02.9 [facility] [id number] [place] [address] 44841- 2812 Oct, [facility] [id number] [id number] Oct, Dental examination Z01.20 [facility] [id number] [place] [address] [id number] Oct, Encounter for dental examination Z01.20 [facility] [address] 99349- 9085 Oct, CAD (coronary artery disease) I25.10 [facility] [address] 88197- 5649 Sep, Generalized anxiety disorder F41.1 [facility] [address] 50358- 3452 Sep, [facility] [address] 61702- 5567 Sep, Rash and other nonspecific skin eruption R21 and Yeast vaginitis B37.3 [facility] [address] [place] [id number] [place] [address] 60155- 4275 Sep, Generalized anxiety disorder F41.1 [facility] [address] 59873- 7412 Aug, Insect bites 919.4 and Hemorrhoids 455.6 [facility] [address] [place] [id number] [place] [address] 04708- 4989 Aug, Generalized anxiety disorder 300.02 [facility] [address] [id number] [place] [address] 62247- 2995 08 Aug, 2015 [facility] [id number] [place] [address] 49650- 7477 Aug, [facility] [address] 38824- 6648 Aug, Generalized anxiety disorder 300.02 ; No condition on Dahlgren II V71.09 ; Heart problem 429.9 and Hypertension 401.9 [facility] [address] 94776- 3762 Aug, [facility] [id number] [address]- 7584 Jul, [facility] [address] [address]- 8433 Jul, [facility] [address] [address]- 3500 Jul, [facility] [id number] [place] [address] 18121- 1753 Jul, [facility] [address] [place] [address] 99623- 2711 Jul, Rash 782.1 [facility] [id number] [place] [address] 26095- 4329 Jul, UTI (urinary tract infection) 599.0 [facility] [address] [place] [address] 49836- 0354 Jul, [facility] [address] [address]- 7015 Jun, Dysthymia 300.4 and Anxiety 300.00 [facility] [address] [address]- 0023 Jun, 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 [facility] [address] [address]- 8381 May, [facility] [id number] [place] [address] 73713- 0875 May, [facility] [id number] [address]- 8920 May, Unspecified breast screening V76.10 [facility] [address] [id number] May, Dental examination V72.2 [facility] [address] [place] [address] 47770- 6495 April, [facility] [address] [id number] [place] [address] 2546 April, [facility] [address] [id number] [place] [id number] April, Dental examination V72.2 [facility] [address] [id number] [place] [id number] April, Dental examination V72.2 [facility] [address] [id number] [place] [address]- 9016 Mar, [facility] [place] [facility] [address] [id number] [place] [address]- 0596 Mar, [facility] [place] [facility] [address] [id number] [place] [address]- 1566 Jan, [facility] [place] [facility] [address] [id number] [place] [address]- 7396 25 Jan, 2015 [facility] [place] [facility] [address] [id number] [place] [address]- 5121 18 Jan, 2015 [facility] [place] [facility] [address] [id number] [place] [address]- 9050 18 Jan, 2015 [facility] [place] [facility] [address] [id number] [place] [address]- 2272 16 Jan, 2015 [facility] [place] [facility] [address] [id number] [address]- 6631 16 Jan, 2015 [facility] [place] [facility] [address] [id number] [place] [address]- 5048 13 Jan, 2015 [facility] [place] [facility] [address] [id number] [place] [address]- 8994 13 Jan, 2015 [facility] [place] [facility] [address] [id number] [address]- 8946 11 Jan, 2015 [facility] [place] [facility] [address] [id number] [place] [address]- 2210 11 Jan, 2015 [facility] [place] [facility] [address] [id number] [place] [address]- 4267 Jan, [facility] [place] [facility] [address] [id number] [place] [address]- 5337 Jan, [facility] [place] [facility] [address] [id number] [place] [address]- 5305 Jan, [facility] [place] [facility] [address] [id number] [place] [address]- 4825 Jan, [facility] [place] [facility] [address] [id number] [place] [address]- 3611 Jan, 2014 [facility] [place] [facility] [address] [id number] [place] [address]- 8245 Jan, 2014 [facility] [place] [facility] [address] [facility] [id number] [place] [address]- 8575 Jan, 2014 [facility] [place] [facility] [address] [facility] [id number] [place] [address]- 3682 Jan, 2014 [facility] [place] [facility] [address] [id number] [place] [address]- 8712 Jan, [facility] [place] [facility] [address] [facility] [id number] [place] [address]- 2667 Jan, [facility] [place] [facility] [address] [facility] [id number] [place] [address]- 8519 Jan, [facility] [place] [facility] [address] [facility] [id number] [place] [address]- 3632 Jan, [facility] [place] [facility] [address] [id number] [place] [address]- 7898 Dec, [facility] [place] [facility] [address] [id number] [place] [address]- 2097 Dec, [facility] [place] [facility] [address] [facility] [id number] [place] [address] Dec, [facility] [place] [facility] [address] [facility] [id number] [place] [address] Dec, [facility] [place] [facility] [address] [id number] [place] [address] Nov, [facility] [place] [facility] [address] [id number] [place] [address] Nov, [facility] [place] [facility] [address] [id number] [place] [address] Nov, [facility] [place] [facility] [address] [id number] [place] [address] Nov, [facility] [place] [facility] [address] [id number] [place] [address] Nov, [facility] [place] [facility] [address] [id number] [place] [address] Nov, [facility] [place] [facility] [address] [id number] [place] [address] Nov, [facility] [place] [facility] [address] [id number] [place] [address] Oct, [facility] [place] [facility] [address] [id number] [place] [address] Oct, [facility] [place] [facility] [address] [id number] [place] [address] Oct, [facility] [place] [facility] [address] [id number] [address] Oct, [facility] [place] [facility] [address] [id number] [place] [address] Oct, [facility] [place] [facility] [address] [id number] [place] [address] Oct, [facility] [place] [facility] [address] [id number] [address] Oct, [facility] [place] [facility] [address] [id number] [address] Oct, [facility] [place] [facility] [address] [id number] [place] [address] Oct, [facility] [place] [facility] [address] [id number] [id number] [address] Oct, [facility] [place] [facility] [address] [id number] [place] [address] Oct, [facility] [place] [facility] [address] [id number] [place] [address] Oct, [facility] [place] [facility] [address] [id number] [place] [address] Sep, [facility] [place] [facility] [address] [id number] [place] [address] Sep, [facility] [place] [facility] [address] [id number] [place] [address] Sep, [facility] [place] [facility] [address] [id number] [place] [address] Sep, [facility] [place] [facility] [address] [id number] [place] [address] Jul, [facility] [place] [facility] [address] [id number] [place] [address] Jul, [facility] [place] [facility] [address] [id number] [place] [address] Jul, [facility] [place] [facility] [address] [id number] [place] [address] Jul, [facility] [place] [facility] [address] [id number] [place] [address] 6[address] Jun, [facility] [place] [facility] [address] [id number] [place] [address] Jun, [facility] [place] [facility] [address] [id number] [place] [address] 67[address] Jun, [facility] [place] [facility] [address] [id number] [place] [address] Jun, [facility] [place] [facility] [address] [id number] [place] [address] May, [facility] [place] [facility] [address] [id number] [place] [address] 8[address] May, [facility] [place] [facility] [address] [id number] [place] [address] April, [facility] [place] [facility] [address] [id number] [place] [address] April, [facility] [address] [id number] [place] [address] 27[address] April, [facility] [place] [facility] [address] [id number] [place] [address] 45[address] April, [facility] [address] [id number] [place] [address] April, [facility] [address] [id number] [place] [address]606 April, [facility] [address] [id number] [place] [address] 45[address] April, [facility] [place] [facility] [address] [id number] [place] [address] 6670 April, [facility] [place] [facility] [address] [id number] [place] [address] April, [facility] [place] [facility] [address] [id number] [place] [address] Mar, [facility] [place] [facility] [address] [id number] [place] [address] 7[address] Mar, [facility] [place] [facility] [address] [id number] [place] [address] 8096 Mar, [facility] [place] [facility] [address] [id number] [place] [address] 0740 Mar, [facility] [place] [facility] [address] [id number] [address]- [address] Jan, [facility] [place] [facility] [address] [id number] [place] [address]- 6582 Jan, [facility] [place] [facility] [address] [id number] [place] [address]- 5845 Jan, [facility] [place] [facility] [address] [id number] [place] [address]- 6921 Jan, [facility] [place] [facility] [address] [id number] [place] [address]- 7091 Jan, [facility] [place] [facility] [address] [id number] [place] [address]- 1833 Jan, [facility] [place] [facility] [address] [id number] [place] [address]- 5798 Jan, [facility] [place] [facility] [address] [facility] [id number] [place] [address] 36[address] Jan, [facility] [place] [facility] [address] [id number] [place] [address]- 295[address] Jan, [facility] [place] [facility] [address] [id number] [place] [address]- 2522 Jan, [facility] [place] [facility] [address] [id number] [place] [address] 6809 Jan, [facility] [place] [facility] [address] [id number] [place] [address] 4114 Jan, [facility] [place] [facility] [address] [id number] [place] [address] Dec, [facility] [place] [facility] [address] [id number] [place] [address]- 0831 Dec, [facility] [place] [facility] [address] [id number] [place] [address]- 0755 Dec, [facility] [place] [facility] [address] [facility] [id number] [place] [address]- 9[address] Dec, [facility] [place] [facility] [address] [id number] [place] [address] 8351 Nov, [facility] [place] [facility] [address] [id number] [place] [address] Nov, [facility] [place] [facility] [address] [id number] [place] [address] Nov, [facility] [place] [facility] [address] [id number] [place] [address] 8648 Nov, [facility] [place] [facility] [address] [id number] [place] [address]- 0620 Oct, [facility] [place] [facility] [address] [id number] [place] [address] 8663 Oct, [facility] [place] [facility] [address] [id number] [place] [address]- 1283 Sep, [facility] [place] [facility] [address] [id number] [place] [address] 4697 Sep, [facility] [place] [facility] [address] [id number] [place] [address]- 5600 Jul, [facility] [place] [facility] [address] [id number] [place] [address]- 3846 Jul, [facility] [place] [facility] [address] [id number] [place] [address]- 6212 Jun, [facility] [place] [facility] [address] [id number] [place] [address]- 8995 Jun, [facility] [place] [facility] [address] [id number] [place] [address]- 8168 Jun, [facility] [place] [facility] [address] [id number] [place] [address]- 6413 May, [facility] [place] [facility] [address] [id number] [place] [address]- 6255 May, [facility] [place] [facility] [address] [id number] [place] [address]- 9862 May, [facility] [address] [id number] [place] [address]- 5830 May, [facility] [address] [id number] [place] [address]- 6705 May, [facility] [address] [id number] [place] [address]- 1585 April, [facility] [place] [facility] [address] [id number] [place] [address]- 7820 April, [facility] [address] [id number] [place] [address]- 3768 April, [facility] [address] [id number] [place] [address]- 1486 April, [facility] [address] [id number] [place] [address]- 4986 April, [facility] [place] [facility] [address] [id number] [place] [address]- 0847 April, [facility] [address] [id number] [place] [address]- 9916 Mar, [facility] [place] [facility] [address] [id number] [place] [address]- 1602 Mar, [facility] [place] [facility] [address] [id number] [place] [address]- 4424 Jan, [facility] [place] [facility] [address] [id number] [place] [address]- 1075 Jan, [facility] [place] [facility] [address] [id number] [place] [address]- 8868 Jan, [facility] [place] [facility] [address] [id number] [place] [address]- 0195 Jan, [facility] [place] [facility] [address] [id number] [place] [address]- 7913 Jan, [facility] [place] [facility] [address] [id number] [place] [address] 2546 12 Jan, 2012 [facility] [address] [id number] [place] [address] 2546 05 Jan, 2012 [facility] [place] [facility] [address] [id number] [place] [address] 2546 04 Jan, 2012 [facility] [address] [id number] [place] [address] 2546 Jan, 2012 [facility] [place] [facility] [address] [id number] [place] [address] 2546 Jan, 2012 [facility] [place] [facility] [address] [id number] [place] [address]- 6876 Jan, [facility] [address] [id number] [place] [address]- 1082 Dec, [facility] [address] [id number] [place] [address]- 9581 Nov, [facility] [address] [id number] [place] [address] 2549 Nov, [facility] [address] [id number] [place] [address] 2546 Nov, [facility] [address] [id number] [place] [address] 2546 Nov, [facility] [place] [facility] [address] [id number] [place] [address] 2546 Nov, [facility] [place] [facility] [address] [id number] [place] [address] 2546 Nov, [facility] [place] [facility] [address] [id number] [place] [address] 2546 Nov, [facility] [place] [facility] [address] [id number] [place] [address] 2546 Nov, [facility] [place] [facility] [address] [id number] [place] [address] 7578 Nov, [facility] [place] [facility] [address] [id number] [place] [address]- 4542 Nov, [facility] [place] [facility] [address] [id number] [place] [address]- 8713 Nov, [facility] [place] [facility] [address] [facility] [id number] [place] [address]- 5426 Nov, [facility] [place] [facility] [address] [id number] [place] [address]- 0744 Nov, [facility] [place] [facility] [address] [id number] [place] [address]- 5437 Oct, [facility] [place] [facility] [address] [id number] [place] [address], [place] [address]- 4975 Oct, [facility] [place] [facility] [address] [facility] [id number] [place] [address]- 9052 Oct, [facility] [place] [facility] [address] [id number] [place] [address]- 7611 Sep, [facility] [place] [facility] [address] [id number] [place] [address]- 8972 Sep, [facility] [place] [facility] [address] [facility] [id number] [place] [address]- 7665 Sep, [facility] [place] [facility] [address] [facility] [id number] [place] [address]- 3220 Sep, [facility] [place] [facility] [address] [id number] [place] [address]- 7754 27 Aug, 2012 [facility] [place] [facility] [address] [id number] [place] [address]- 1972 Aug, [facility] [place] [facility] [address] [facility] [id number] [place] [address]- 8411 24 Jul, 2012 [facility] [place] [facility] [address] [facility] [id number] [place] [address]- 8816 May, [facility] [place] [facility] [address] [id number] [place] [address]- 6293 14 May, 2012 [facility] [address] [id number] [place] [address]- 8825 14 May, 2012 [facility] [place] [facility] [address] [id number] [place] [address]- 1899 April, [facility] [address] [id number] [place] [address]- 8973 Mar, [facility] [place] [facility] [address] [id number] [place] [address]- 4996 Mar, [facility] [address] [id number] [place] [address]- 9503 Mar, [facility] [place] [facility] [address] [id number] [place] [address]- 1319 Jan, [facility] [address] [id number] [place] [address]- 3831 Jan, [facility] [place] [facility] [address] [id number] [place] [address]- 6998 Jan, [facility] [place] [facility] [address] [id number] [place] [address]- 0813 Dec, [facility] [address] [id number] [place] [address]- 3730 Dec, [facility] [place] [facility] [address] [id number] [place] [address]- 2197 Dec, [facility] [place] [facility] [address] [id number] [place] [address]- 7650 Dec, [facility] [place] [facility] [address] [id number] [place] [address]- 5444 Nov, [facility] [place] [facility] [address] [id number] [place] [address]- 2731 Nov, [facility] [place] [facility] [address] [id number] [place] [address]- 4988 Nov, [facility] [place] [facility] [address] [id number] [place] [address]- 1894 Oct, [facility] [place] [facility] [address] [id number] [place] [address]- 5437 31 Sep, 2011 [facility] [place] [facility] [address] [id number] [place] [address] 26 Sep, 2011 [facility] [place] [facility] [address] [id number] [place] [address], [place] [address]- 4551 13 Sep, 2011 [facility] [address] [id number] [place] [address]- 4214 15 Nov, 2010 [facility] [place] [facility] [address] [id number] [place] [address]- 2584 23 Oct, 2010 [facility] [address] [id number] [place] [address]- 0961 Oct, [facility] [place] [facility] [address] [id number] [place] [address]- 6225 Oct, [facility] [place] [facility] [address] [id number] [place] [address]- 1360 16 Oct, 2010 [facility] [place] [facility] [address] [id number] [place] [address]- 3723 Sep, [facility] [place] [facility] [address] [id number] [place] [address]- 4383 April, [facility] [place] [facility] [address] [id number] [place] [address]- 6636 29 Nov, 2009 [facility] [place] [facility] [address] [id number] [place] [address]- 3951 24 Nov, 2009 [facility] [place] [facility] [address] [id number] [place] [address]- 9659 22 Nov, 2009 [facility] [place] [facility] [address] [id number] [place] [address]- 5877 10 Nov, 2009 [facility] [place] [facility] [address] [id number] [place] [address]- 2546 Nov, [facility] [address] [facility] [id number] [place] [address]- 3076 Oct, [facility] [address] [facility] [id number] [place] [address]- 2546 Oct, [facility] [address] [facility] [id number] [place] [address] 2546 Sep, [facility] [address] [facility] [id number] [place] [address]- 2546 Jan, IMMUNIZATIONS No Known Immunizations SOCIAL HISTORY Never Assessed REASON FOR VISIT PA for Zolpidem PLAN OF CARE VITAL SIGNS MEDICATIONS Unknown Medications RESULTS No Results PROCEDURES No Known procedures INSTRUCTIONS MEDICATIONS ADMINISTERED No Known Medications MEDICAL (GENERAL) HISTORY Type Description Date Medical History Hypertension Medical History Heart disease CABG X3 Stress test 07/2015 Medical History Gastric ulcer Medical History Hyperlipidemia Medical History Headache syndrome Medical History Psychiatric disorders-depression/racing thoughts Medical History Depression [facility] Started on Eliquis Medical History Anemia 04/2016 postsurgical hip fx Surgical History right hip replacement w/ Dr. Bruce 2011 Surgical History triple bypass surgery 2003 Surgical History S/P left hip IM Nail (Intertrechanteric hip fx) 04/28/16 Hospitalization History surgeries Hospitalization History Hypertension Hospitalization History ER for a concussion 11/24/15 Hospitalization History Intertrechanteric hip fx 04/27/16 Hospitalization History [facility] (inpatient [facility] 2 times) Hx of 3 inpatient psych treatments in past in [place] oct 2016 [facility]
--- OUTSIDE RECORDS SUMMARY | 2018-08-20 12:43 | XMS REPORT ---
Author Author WOLF AGUIRRE [facility] Address [address] [place] [address] Care Team Providers Care Executive Administrative Assistant Name Role Phone WOLF AGUIRRE Unavailable PROBLEMS Type Condition ICD9-CM Code DUG63-QC Code Onset Dates Condition Status SNOMED Code Problem Sundowning F05 Active 069254783 Problem Constipation, unspecified constipation type K59.00 Active 80221002 Problem Reactive depression F32.9 Active 59992634 Problem Vascular dementia with behavior disturbance F01.51 Active 941225553552466 Problem Insomnia, unspecified type G47.00 Active 250230169 Problem Generalized anxiety disorder F41.1 Active 43719155 Problem Other chronic pain G89.29 Active 89273106 Problem Severe episode of recurrent major depressive disorder, without psychotic features F33.2 Active 35104612 Problem Slow transit constipation K59.01 Active 02164996 Problem 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 Active 503645358 Problem Obsessive thinking F42.8 Active 67754089 Problem Failure to thrive in adult R62.7 Active 501831704 Problem Dysthymic disorder F34.1 Active 89525294 Problem Hypertension I10 Active 75386017 Problem Mood disorder F39 Active 94680729 Problem Irritable bowel syndrome with diarrhea K58.0 Active 007795732 Problem Oropharyngeal dysphagia R13.12 Active 57398518 Problem 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 Active 10249228 Problem Other chronic pain G89.29 Active 50552561 Problem Primary insomnia F51.01 Active 6843711 Problem Poor appetite R63.0 Active 21561213 Problem Atherosclerotic heart disease of [place] 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 Active 906826218002124 Problem Iron deficiency anemia secondary to inadequate dietary iron intake D50.8 Active 648281844 Problem Coarse tremors G25.2 Active 68469074 Problem Gastroesophageal reflux disease without esophagitis K21.9 Active 747459157 Problem Essential hypertension I10 Active 19428609 ALLERGIES No Information ENCOUNTERS Encounter Location Date Diagnosis [facility] [address] [id number] May, [facility] [address], [place] [address] May, [facility] [address], [place] [address] May, [facility] [address] [id number] May, Mood disorder F39 [facility] [address] [place] [address] 01166- 7441 May, [facility] [id number] [place] [address] 69478- 1654 April, [facility] [address] [id number] April, Generalized anxiety disorder F41.1 ; Obsessive thinking F42.8 and Insomnia , unspecified type G47.00 [facility] [address], [place] [address] April, [facility] [address] [place] [address] 23089- 2825 April, Rash of face R21 [facility] [address], [place] [address] Mar, [facility] [address], [place] [address] 2441 Mar, [facility] [address], [place] [address] 0594 Mar, [facility] [address] [place] [address] 10248- 0619 Jan, [facility] [address], [place] [address] 2257 Jan, [facility] [address] [address] Jan, Constipation, unspecified constipation type K59.00 and Other chronic pain G89.29 [facility] [address] [place] [address] 47770- 8613 Jan, [facility] [address] [id number] Jan, Obsessive thinking F42.8 and Coarse tremors G25.2 [facility] [id number] [place] [address] [id number] Jan, [facility] [id number] [place] [address] [id number] Jan, [facility] [address] [id number] Jan, Generalized anxiety disorder F41.1 ; Obsessive thinking F42.8 ; Callus of foot L84 and 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 [facility] [id number] [place] [address] 91461- 7552 Dec, Generalized anxiety disorder F41.1 and Severe episode of recurrent major depressive disorder, without psychotic features F33.2 [facility] [id number] [place] [address] 12040- 1789 Nov, [facility] [id number] [place] [address] 94643- 4143 Nov, [facility] [address] [id number] Nov, Oropharyngeal dysphagia R13.12 ; Generalized anxiety disorder F41.1 and 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 [facility] [address] [place] [address] 04506- 8182 Nov, [facility] [address] [id number] Nov, [facility] [id number] [place] [address] 30933- 3490 Nov, [facility] [id number] [place] [address] 70689- 6109 Nov, [facility] [id number] [address] Oct, Constipation, unspecified constipation type K59.00 and Mood disorder F39 [facility] [address] [address] Oct, [facility] [id number] [place] [address] [id number] Sep, [facility] [id number] [place] [address] [id number] Sep, [facility] [id number] [place] [address] [id number] Sep, [facility] [id number] [place] [address] [id number] Sep, [facility] [address] [id number] Sep, Generalized abdominal pain R10.84 [facility] [address] [address] Sep, [facility] [id number] [place] [address] [id number] Sep, Generalized anxiety disorder F41.1 and Primary insomnia F51.01 [facility] [id number] [id number] Aug, [facility] [id number] [place] [address] [id number] Aug, Generalized anxiety disorder F41.1 [facility] [address], [place] [address] 6313 Jul, [facility] [address] [id number] Jul, Obsessive thinking F42.8 [facility] [address] [address] Jul, Generalized anxiety disorder F41.1 and Irritable bowel syndrome with diarrhea K58.0 [facility] [id number] [id number] Jul, Generalized anxiety disorder F41.1 [facility] [address] [address] Jun, Generalized anxiety disorder F41.1 [facility] [address], [place] [address] 9[address] May, [facility] [address] [id number] May, Generalized anxiety disorder F41.1 ; Irritable bowel syndrome with diarrhea K58.0 and Coarse tremors G25.2 [facility] [address] [place] [address] 17910- 1114 April, [facility] [id number] [place] [address] 23145- 0910 April, [facility] [id number] [place] [address] 47913- 8573 April, [facility] [address] [place] [address] 26999- 3094 Mar, [facility] [address] [address] Mar, Severe episode of recurrent major depressive disorder, without psychotic features F33.2 and Pain in left hip M25.552 [facility] [address], [place] [address] 8082 Mar, [facility] [address] [place] [address] 97889- 0737 Mar, [facility] [address], [place] [address] 2218 Mar, [facility] [address] [place] [address] 34675- 0383 Mar, Pain in right hip M25.551 and Self-care deficit in patient living alone R46.89 [facility] [address] [place] [address] 77570 -8960 Jan, Other chronic pain G89.29 ; Pain in left hip M25.552 and Slow transit constipation K59.01 [facility] [id number] [place] [address] 17723- 1852 Jan, [facility] [id number] [place] [address] 92285- 0483 Dec, Other depression F32.89 ; Constipation, unspecified constipation type K59.00 and Insomnia, unspecified type G47.00 [facility] [id number] [place] [address] 79050- 3089 Nov, Reactive depression F32.9 ; Chronic idiopathic constipation K59.04 ; Generalized anxiety disorder F41.1 ; Coarse tremors G25.2 ; Gastroesophageal reflux disease without esophagitis K21.9 ; Dysthymic disorder F34.1 ; Vitamin deficiency, unspecified E56.9 and Primary insomnia F51.01 [facility] [id number] [place] [address] 28900- 0860 Nov, [facility] [id number] [place] [address] 09687- 5461 Nov, [facility] [id number] [place] [address] 43750- 4661 Nov, [facility] [id number] [place] [address] 88307- 7201 Nov, Reactive depression F32.9 ; Essential hypertension I10 ; Generalized anxiety disorder F41.1 ; Atherosclerotic heart disease of [place] 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 ; Pain in right hip M25.551 ; Other chronic pain G89.29 ; Chronic idiopathic constipation K59.04 ; Primary insomnia F51.01 ; Coarse tremors G25.2 ; Gastroesophageal reflux disease without esophagitis K21.9 ; Iron deficiency anemia secondary to inadequate dietary iron intake D50.8 and Vitamin deficiency, unspecified E56.9 [facility] [id number] [place] [address] 81110- 9276 Oct, [facility] [address] [place] [address] 56112- 6099 Oct, [facility] [id number] [place] [address] 43763- 6683 Oct, [facility] [id number] [place] [address] 75544- 4074 16 Oct, 2016 Generalized anxiety disorder F41.1 ; Poor appetite R63.0 ; Dehydration E86.0 and Failure to thrive in adult R62.7 [facility] [id number] [place] [address] 61190- 8761 07 Oct, 2016 Generalized anxiety disorder F41.1 and Failure to thrive in adult R62.7 [facility] [id number] [place] [address] 69176- 6290 03 Oct, 2016 [facility] [id number] [place] [address] 17184- 1972 Oct, [facility] [id number] [place] [address] 75823 -5579 Sep, Vaginal discharge N89.8 and Acute cystitis with hematuria N30.01 [facility] [id number] [place] [address] 47414- 8597 Sep, [facility] [id number] [place] [address] 43071- 3131 Sep, [facility] [id number] [place] [address] 54090- 6091 Sep, Dysthymic disorder F34.1 ; Acute vaginitis N76.0 ; Dysuria R30.0 and Vaginal yeast infection B37.3 [facility] [id number] [place] [address] 56512- 1180 Aug, [facility] [id number] [place] [address] 08330- 6550 13 Aug, 2016 [facility] [id number] [place] [address] 90759 -5995 Aug, Foul smelling urine R82.90 ; Rapid heart rate R00.0 and Flatulence R14.3 [facility] [id number] [place] [address] 81720- 6337 Aug, [facility] [id number] [place] [address] 33857- 6852 Jul, Constipation, unspecified constipation type K59.00 ; Weak R53.1 ; Poor appetite R63.0 ; Coronary artery disease involving [place] heart without angina pectoris, unspecified vessel or lesion type I25.10 ; Fatigue, unspecified type R53.83 ; Urinary incontinence, unspecified type R32 and Insomnia, unspecified type G47.00 [facility] [id number] [place] [address] 95750- 0650 Jul, [facility] [id number] [place] [address] 22442- 1782 Jun, Dysuria R30.0 [facility] [id number] [place] [address] 97009- 0232 Jun, [facility] [id number] [place] [address] 92769- 2376 Jun, Urinary tract infection, site not specified N39.0 ; Acute vaginitis N76.0 and Diarrhea, unspecified type R19.7 [facility] [id number] [place] [address] 87449- 6911 May, [facility] [id number] [place] [address] 70363- 9715 April, [facility] [id number] [place] [address] [id number] April, Encounter for dental examination Z01.20 [facility] [id number] [place] [address] 90841- 1843 April, [facility] [id number] [place] [address] 75648- 3254 April, Tremor R25.1 and Episodic tension-type headache, not intractable G44.219 [facility] [id number] [place] [address] 59238- 7955 Mar, [facility] [id number] [place] [address] 73661- 4795 Jan, Mood disorder F39 [facility] [id number] [place] [address] 21236 -4345 Jan, [facility] [id number] [place] [address] 29161- 3105 Jan, [facility] [address] 36292- 8131 Jan, [facility] [id number] [place] [address] 50946- 7481 Jan, [facility] [id number] [place] [address] 50602- 5806 Jan, [facility] [id number] [place] [address] 93482- 6829 Jan, [facility] [id number] [place] [address] 79523 -8208 Dec, Acute diarrhea R19.7 [facility] [id number] [place] [address] 35111- 4235 Dec, [facility] [id number] [place] [address] 54158- 3759 Dec, [facility] [id number] [place] [address] 35474- 7164 Dec, [facility] [id number] [place] [address] 94169 -8848 Dec, N&V (nausea and vomiting) R11.2 [facility] [id number] [place] [address] 18412- 7961 Dec, Generalized anxiety disorder F41.1 [facility] [address], [place] [address]- 7879 Dec, Generalized anxiety disorder F41.1 [facility] [address] [place] [address] 586309- 8132 Nov, Post concussion syndrome F07.81 [facility] [id number] [place] [address] 94921- 1999 Nov, Generalized anxiety disorder F41.1 [facility] [id number] [place] [address] 45456- 3838 Nov, [facility] [id number] [place] [address] 99775- 7620 Nov, Generalized anxiety disorder F41.1 [facility] [id number] [place] [address] [id number] Oct, Dental caries K02.9 [facility] [id number] [place] [address] 66379- 4241 Oct, [facility] [id number] [place] [address] [id number] Oct, Dental examination Z01.20 [facility] [id number] [place] [address] [id number] 10 Oct, 2015 Encounter for dental examination Z01.20 [facility] [address] [place] [address] 19422- 2755 Oct, CAD (coronary artery disease) I25.10 [facility] [address] [place] [address] 42190- 2703 Sep, Generalized anxiety disorder F41.1 [facility] [id number] [place] [address] 73012- 9533 Sep, [facility] [id number] [place] [address] 63491- 9071 Sep, Rash and other nonspecific skin eruption R21 and Yeast vaginitis B37.3 [facility] [facility] [id number] [place] [address] 86957- 8721 Sep, Generalized anxiety disorder F41.1 [facility] [id number] [place] [address] 66355- 6609 Aug, Insect bites 919.4 and Hemorrhoids 455.6 [facility] [id number] [place] [address] 41890- 9414 Aug, Generalized anxiety disorder 300.02 [facility] [id number] [place] [address] 27258- 8981 Aug, [facility] [address] 62536- 2968 Aug, [facility] [id number] [place] [address] 23437- 9533 Aug, Generalized anxiety disorder 300.02 ; No condition on Neptune II V71.09 ; Heart problem 429.9 and Hypertension 401.9 [facility] [id number] [place] [address] 82715- 4488 Aug, [facility] [id number] [place] [address] 22455- 1096 Jul, [facility] [id number] [place] [address] 41422- 0776 Jul, [facility] [id number] [place] [address] 41813- 6823 Jul, [facility] [id number] [place] [address] 72104- 2956 Jul, [facility] [id number] [place] [address] 11378- 9496 Jul, Rash 782.1 [facility] [id number] [place] [address] 59540- 4834 Jul, UTI (urinary tract infection) 599.0 [facility] [id number] [place] [address] 47999 2546 Jul, [facility] [address], [place] [address]- 5846 Jun, Dysthymia 300.4 and Anxiety 300.00 [facility] [address], [place] [address] 2546 Jun, 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 [facility] [address], [place] [address]- 9716 May, [facility] [address], [place] [address]- 1568 May, [facility] [address] [place] [address] 93932- 6436 May, Unspecified breast screening V76.10 [facility] [address] [id number] May, Dental examination V72.2 [facility] [address], [place] [address]- 2406 April, [facility] [address], [place] [address]- 3076 April, [facility] [address] [id number] April, Dental examination V72.2 [facility] [id number] [id number] April, Dental examination V72.2 [facility] [address], [place] [address]- 2546 Mar, [facility] [address], [place] [address] 2546 Mar, [facility] [address] [place] [address] 2546 Jan, [facility] [address], [place] [address]- 4596 Jan, [facility] [place] [facility] [address] [id number] [place] [address]- 7095 18 Jan, 2014 [facility] [place] [facility] [address] [id number] [place] [address]- 9047 18 Jan, 2015 [facility] [place] [facility] [address] [id number] [place] [address]- 7965 16 Jan, 2015 [facility] [place] [facility] [address] [id number] [place] [address]- 9966 16 Jan, 2014 [facility] [place] [facility] [address] [id number] [place] [address]- 8792 13 Jan, 2015 [facility] [place] [facility] [address] [id number] [place] [address]- 0315 13 Jan, 2014 [facility] [place] [facility] [address] [id number] [place] [address]- 7857 11 Jan, 2014 [facility] [place] [facility] [address] [id number] [place] [address]- 0930 11 Jan, 2014 [facility] [place] [facility] [address] [id number] [place] [address]- 3751 11 Jan, 2015 [facility] [place] [facility] [address] [id number] [place] [address]- 7695 Jan, [facility] [place] [facility] [address] [id number] [place] [address]- 1135 09 Jan, 2015 [facility] [place] [facility] [address] [id number] [place] [address]- 8402 Jan, [facility] [place] [facility] [address] [id number] [place] [address]- 4114 Jan, [facility] [place] [facility] [address] [id number] [place] [address]- 0842 Jan, [facility] [place] [facility] [address] [id number] [place] [address]- 2[address] 10 Jan, 2015 [facility] [place] [facility] [address] [id number] [place] [address] Jan, 2014 [facility] [address] [id number] [place] [address] Jan, 2014 [facility] [place] [facility] [address] [id number] [place] [address] Jan, 2014 [facility] [place] [facility] [address] [id number] [place] [address] Jan, 2014 [facility] [place] [facility] [address] [id number] [place] [address] Jan, [facility] [place] [facility] [address] [id number] [place] [address] Dec, [facility] [place] [facility] [address] [id number] [place] [address] Dec, [facility] [place] [facility] [address] [id number] [place] [address] Dec, [facility] [place] [facility] [address] [id number] [place] [address] Dec, [facility] [place] [facility] [address] [id number] [place] [address] Nov, [facility] [place] [facility] [address] [id number] [place] [address] Nov, [facility] [place] [facility] [address] [id number] [place] [address] Nov, [facility] [place] [facility] [address] [id number] [place] [address] Nov, [facility] [place] [facility] [address] [id number] [place] [address] Nov, [facility] [place] [facility] [address] [id number] [place] [address] Nov, [facility] [place] [facility] [address] [id number] [place] [address] Nov, [facility] [place] [facility] [address] [id number] [place] [address] Oct, [facility] [place] [facility] [address] [id number] [place] [address] Oct, [facility] [place] [facility] [address] [id number] [place] [address] Oct, [facility] [place] [facility] [address] [id number] [place] [address] Oct, [facility] [place] [facility] [address] [id number] [place] [address] Oct, [facility] [place] [facility] [address] [id number] [place] [address] Oct, [facility] [place] [facility] [address] [id number] [place] [address]- [address] Oct, [facility] [place] [facility] [address] [id number] [place] [address] Oct, [facility] [place] [facility] [address] [id number] [place] [address] Oct, [facility] [place] [facility] [address] [id number] [place] [address] Oct, [facility] [place] [facility] [address] [id number] [place] [address] Oct, [facility] [place] [facility] [address] [id number] [place] [address] Oct, [facility] [place] [facility] [address] [id number] [place] [address] Sep, [facility] [place] [facility] [address] [id number] [place] [address] Sep, [facility] [place] [facility] [address] [id number] [place] [address] Sep, [facility] [place] [facility] [address] [id number] [place] [address] Sep, [facility] [place] [facility] [address] [id number] [place] [address] Jul, [facility] [place] [facility] [address] [id number] [place] [address] Jul, [facility] [place] [facility] [address] [id number] [place] [address] Jul, [facility] [place] [facility] [address] [id number] [place] [address] Jul, [facility] [place] [facility] [address] [id number] [place] [address] Jun, [facility] [place] [facility] [address] [id number] [place] [address] Jun, [facility] [place] [facility] [address] [id number] [place] [address] Jun, [facility] [place] [facility] [address] [id number] [place] [address] Jun, [facility] [place] [facility] [address] [id number] [place] [address] May, [facility] [place] [facility] [address] [id number] [place] [address] May, [facility] [place] [facility] [address] [id number] [place] [address] April, [facility] [place] [facility] [address] [id number] [place] [address] April, [facility] [place] [facility] [address] [id number] [place] [address] 39[address] April, [facility] [place] [facility] [address] [id number] [place] [address] April, [facility] [place] [facility] [address] [id number] [place] [address] 3026 April, [facility] [place] [facility] [address] [id number] [place] [address] April, [facility] [address] [id number] [place] [address] April, [facility] [address] [id number] [place] [address] 2867 April, [facility] [address] [id number] [place] [address] April, [facility] [address] [id number] [place] [address] 84[address] Mar, [facility] [address] [id number] [place] [address] Mar, [facility] [address] [id number] [place] [address]61 Mar, [facility] [address] [id number] [place] [address]34 Mar, [facility] [address] [id number] [place] [address] Jan, [facility] [address] [id number] [place] [address]- 8080 Jan, [facility] [address] [id number] [place] [address] 5544 Jan, [facility] [place] [facility] [address] [id number] [place] [address] Jan, [facility] [place] [facility] [address] [id number] [place] [address]- 9[address] Jan, [facility] [place] [facility] [address] [id number] [place] [address]- 225[address] Jan, [facility] [place] [facility] [address] [id number] [place] [address] 1549 Jan, [facility] [place] [facility] [address] [id number] [place] [address] 83[address] Jan, [facility] [address] [id number] [place] [address]- 8[address] Jan, [facility] [place] [facility] [address] [id number] [place] [address] 5814 Jan, [facility] [place] [facility] [address] [id number] [place] [address]- 1185 Jan, [facility] [place] [facility] [address] [id number] [place] [address] Jan, [facility] [place] [facility] [address] [id number] [place] [address] 8121 Dec, [facility] [place] [facility] [address] [id number] [place] [address]- 1676 Dec, [facility] [place] [facility] [address] [facility] [id number] [place] [address]- 0425 Dec, [facility] [place] [facility] [address] [id number] [place] [address]- 1677 Dec, [facility] [place] [facility] [address] [id number] [place] [address]- 9360 Nov, [facility] [place] [facility] [address] [id number] [place] [address] 3833 Nov, [facility] [place] [facility] [address] [id number], [place] [address] Nov, [facility] [place] [facility] [address] [id number], [place] [address] Nov, [facility] [place] [facility] [address] [id number] [place] [address] 9600 Oct, [facility] [place] [facility] [address] [id number], [place] [address] Oct, [facility] [place] [facility] [address] [id number] [place] [address] Sep, [facility] [place] [facility] [address] [id number] [place] [address]- 7853 Sep, [facility] [address] [id number] [place] [address] 82[address] Jul, [facility] [place] [facility] [address] [id number] [place] [address] 6[address] Jul, [facility] [address] [id number] [place] [address]- 9050 Jun, [facility] [place] [facility] [address] [id number] [place] [address]- 9315 Jun, [facility] [address] [id number] [place] [address]- 4736 Jun, [facility] [address] [id number] [place] [address]- 8[address] May, [facility] [address] [id number] [place] [address]- 3133 May, [facility] [address] [id number] [place] [address]- 9031 May, [facility] [address] [id number] [place] [address]- 1692 May, [facility] [address] [id number] [place] [address]- 8529 May, [facility] [address] [id number] [place] [address]- 8156 April, [facility] [place] [facility] [address] [id number] [place] [address]- 9080 April, [facility] [place] [facility] [address] [id number] [place] [address]- 2507 April, [facility] [place] [facility] [address] [id number] [place] [address]- 2316 April, [facility] [place] [facility] [address] [id number] [place] [address] 4219 April, [facility] [place] [facility] [address] [id number] [place] [address]- 6726 April, [facility] [address] [id number] [place] [address]- 6073 Mar, [facility] [place] [facility] [address] [id number] [place] [address]- 6150 Mar, [facility] [place] [facility] [address] [id number] [place] [address]- 2026 Jan, [facility] [address] [id number] [place] [address]- 0927 Jan, [facility] [place] [facility] [address] [id number] [place] [address]- 2790 Jan, [facility] [address] [id number] [place] [address]- 3419 Jan, [facility] [address] [id number] [place] [address]- 4489 Jan, [facility] [place] [facility] [address] [id number] [place] [address]- 4877 Jan, [facility] [address] [id number] [place] [address]- 5617 Jan, [facility] [place] [facility] [address] [id number] [place] [address]- 4024 Jan, [facility] [place] [facility] [address] [id number] [place] [address]- 9989 Jan, [facility] [place] [facility] [address] [id number] [place] [address]- 6996 Jan, [facility] [place] [facility] [address] [id number] [place] [address]- 1036 Jan, [facility] [place] [facility] [address] [id number] [place] [address]- 3936 Dec, [facility] [place] [facility] [address] [id number] [place] [address]- 9738 Nov, [facility] [place] [facility] [address] [id number] [place] [address]- 0446 Nov, [facility] [place] [facility] [address] [id number] [place] [address]- 4876 Nov, [facility] [place] [facility] [address] [id number] [place] [address]- 0306 Nov, [facility] [place] [facility] [address] [id number] [place] [address]- 8836 Nov, [facility] [place] [facility] [address] [id number] [place] [address]- 9908 Nov, [facility] [place] [facility] [address] [id number] [place] [address]- 3017 Nov, [facility] [place] [facility] [address] [id number] [place] [address]- 3352 Nov, [facility] [place] [facility] [address] [id number] [place] [address]- 3516 Nov, [facility] [place] [facility] [address] [id number] [place] [address]- 2650 Nov, [facility] [place] [facility] [address] [facility] [id number] [place] [address]- 1181 18 Nov, 2012 [facility] [place] [facility] [address] [id number] [place] [address]- 8898 Nov, [facility] [place] [facility] [address] [id number] [place] [address]- 9639 Nov, [facility] [place] [facility] [address] [id number] [place] [address]- 9029 17 Oct, 2012 [facility] [place] [facility] [address] [id number] [place] [address]- 3113 Oct, [facility] [place] [facility] [address] [facility] [id number] [place] [address]- 8798 Oct, [facility] [place] [facility] [address] [id number] [place] [address]- 7921 Sep, [facility] [place] [facility] [address] [id number] [place] [address]- 6639 Sep, [facility] [place] [facility] [address] [id number] [place] [address]- 8886 Sep, [facility] [place] [facility] [address] [id number] [place] [address]- 8333 Sep, [facility] [place] [facility] [address] [id number] [place] [address]- 5551 27 Aug, 2012 [facility] [place] [facility] [address] [id number] [place] [address]- 1823 Aug, [facility] [place] [facility] [address] [id number] [place] [address]- 8638 Jul, [facility] [place] [facility] [address] [id number] [place] [address]- 3405 May, [facility] [place] [facility] [address] [id number] [place] [address]- 1907 May, [facility] [place] [facility] [address] [id number] [place] [address]- 5651 May, [facility] [place] [facility] [address] [id number] [place] [address]- 1154 April, [facility] [place] [facility] [address] [id number] [place] [address]- 2809 Mar, [facility] [place] [facility] [address] [id number] [place] [address]- 9814 Mar, [facility] [place] [facility] [address] [id number] [place] [address]- 5928 Mar, [facility] [place] [facility] [address] [id number] [place] [address]- 4177 Jan, [facility] [place] [facility] [address] [id number] [place] [address]- 1228 Jan, [facility] [place] [facility] [address] [id number] [place] [address]- 0418 Jan, [facility] [place] [facility] [address] [id number] [place] [address]- 6432 Dec, [facility] [place] [facility] [address] [id number] [place] [address]- 6813 Dec, [facility] [place] [facility] [address] [id number] [place] [address]- 1745 Dec, [facility] [place] [facility] [address] [id number] [place] [address]- 5809 Dec, [facility] [place] [facility] [address] [id number] [place] [address]- 2831 Nov, [facility] [place] [facility] [address] [id number] [place] [address]- 5036 Nov, [facility] [place] [facility] [address] [id number] [place] [address]- 7315 Nov, [facility] [place] [facility] [address] [id number] [place] [address]- 4333 Oct, [facility] [place] [facility] [address] [id number] [place] [address]- 9666 Sep, [facility] [place] [facility] [address] [id number], [place] [address]- 8083 Sep, [facility] [place] [facility] [address] [id number], [place] [address]- 9908 13 Sep, 2011 [facility] [place] [facility] [address] [id number] [place] [address]- 2675 15 Nov, 2010 [facility] [place] [facility] [address] [id number] [place] [address]- 5121 Oct, [facility] [place] [facility] [address] [id number] [place] [address]- 0697 Oct, [facility] [place] [facility] [id number], [place] [address]- 8450 18 Oct, 2010 [facility] [id number], [place] [address]- 9848 16 Oct, 2010 [facility] [id number], [place] [address]- 8185 Sep, [facility] [id number], [place] [address]- 1088 April, [facility] [id number], [place] [address]- 7726 Nov, [facility] [id number] [place] [address]- 7538 Nov, [facility] [id number], [place] [address]- 7168 Nov, [facility] [id number], [place] [address]- 4946 Nov, [facility] [id number], [place] [address]- 2489 Nov, [facility] [id number], [place] [address]- 8060 Oct, [facility] [id number], [place] [address]- 1838 Oct, [facility] [id number], [place] [address]- 9816 Sep, [facility] [address] [id number], [place] [address]- 6256 Jan, IMMUNIZATIONS No Known Immunizations SOCIAL HISTORY Never Assessed REASON FOR VISIT behaviors PLAN OF CARE VITAL SIGNS MEDICATIONS Unknown [...] History Intertrechanteric hip fx 04/27/16 Hospitalization History [facility] (inpatient [facility] times) Hx of 3 inpatient psych treatments in past in [place] oct 2016 [facility]
--- OUTSIDE RECORDS SUMMARY | 2018-08-20 12:44 | XMS REPORT ---
Author Author WOLF AGUIRRE [facility] Address [address] [place] [address] Care Team Providers Care Channel Rougher Name Role Phone WOLF AGUIRRE Unavailable PROBLEMS Type Condition ICD9-CM Code EYA23-ZF Code Onset Dates Condition Status SNOMED Code Problem Sundowning F05 Active 662454222 Problem Constipation, unspecified constipation type K59.00 Active 37481507 Problem Reactive depression F32.9 Active 72998804 Problem Vascular dementia with behavior disturbance F01.51 Active 210313311828598 Problem Insomnia, unspecified type G47.00 Active 264681995 Problem Generalized anxiety disorder F41.1 Active 77781268 Problem Other chronic pain G89.29 Active 97203535 Problem Severe episode of recurrent major depressive disorder, without psychotic features F33.2 Active 54954020 Problem Slow transit constipation K59.01 Active 76457834 Problem 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 Active 581414508 Problem Obsessive thinking F42.8 Active 14922383 Problem Failure to thrive in adult R62.7 Active 050886644 Problem Dysthymic disorder F34.1 Active 35798203 Problem Hypertension I10 Active 42761792 Problem Mood disorder F39 Active 21895035 Problem Irritable bowel syndrome with diarrhea K58.0 Active 099508545 Problem Oropharyngeal dysphagia R13.12 Active 52770434 Problem 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 Active 39605065 Problem Other chronic pain G89.29 Active 48529742 Problem Primary insomnia F51.01 Active 9189757 Problem Poor appetite R63.0 Active 70256936 Problem Atherosclerotic heart disease of [place] 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 Active 262322103387407 Problem Iron deficiency anemia secondary to inadequate dietary iron intake D50.8 Active 136668237 Problem Coarse tremors G25.2 Active 12865564 Problem Gastroesophageal reflux disease without esophagitis K21.9 Active 041268497 Problem Essential hypertension I10 Active 59345852 ALLERGIES No Information ENCOUNTERS Encounter Location Date Diagnosis [facility] [address] [id number] May, [facility] [id number] [place] [address] 95529- 6809 May, [facility] [id number] [place] [address] 37227- 6810 April, [facility] [address] [id number] April, Generalized anxiety disorder F41.1 ; Obsessive thinking F42.8 and Insomnia , unspecified type G47.00 [facility] [id number] [place] [address] 23340- 9038 April, [facility] [id number] [place] [address] 64441- 1153 April, Rash of face R21 [facility] [id number] [place] [address] 77882- 1926 Mar, [facility] [id number] [place] [address] 37472- 2202 Mar, [facility] [id number] [place] [address] 38348- 9132 Mar, [facility] [id number] [place] [address] 94795- 2480 Jan, [facility] [id number] [place] [address] 37806- 9566 Jan, [facility] [address] [id number] Jan, Constipation, unspecified constipation type K59.00 and Other chronic pain G89.29 [facility] [id number] [place] [address] 40186- 1962 Jan, [facility] [address] [id number] Jan, Obsessive thinking F42.8 and Coarse tremors G25.2 [facility] [id number] [id number] Jan, [facility] [id number] [place] [id number] Jan, [address] [id number] Jan, Generalized anxiety disorder F41.1 ; Obsessive thinking F42.8 ; Callus of foot L84 and 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 [facility] [id number] [place] [address] 92886- 0360 Dec, Generalized anxiety disorder F41.1 and Severe episode of recurrent major depressive disorder, without psychotic features F33.2 [facility] [id number] [place] [address] 54221- 5468 Nov, [facility] [id number] [place] [address] 10916- 9112 Nov, [address] [id number] Nov, Oropharyngeal dysphagia R13.12 ; Generalized anxiety disorder F41.1 and 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 [facility] [id number] [place] [address] 12863- 1789 Nov, [facility] [id number] [place] [address] [id number] Nov, [facility] [id number] [place] [address] 83364- 8077 Nov, [facility] [address] [place] [address] 86615- 5697 Nov, [facility] [id number] [place] [address] 12578- 4386 Oct, Constipation, unspecified constipation type K59.00 and Mood disorder F39 [facility] [id number] [place] [address] 56273- 8770 Oct, [facility] [address] [id number] [id number] Sep, [facility] [id number] [id number] Sep, [facility] [id number][place] [address] Sep, [facility] [id number][place] [address] Sep, [facility] [address] [id number] Sep, Generalized abdominal pain R10.84 [facility] [address] [id number], [place] [address] 2546 Sep, [facility] [id number][place] [id number] Sep, Generalized anxiety disorder F41.1 and Primary insomnia F51.01 [facility] [id number][place] [id number] Aug, [facility] [id number][place] [id number] Aug, Generalized anxiety disorder F41.1 [facility] [address] [address] 9779 Jul, [facility] [address] [id number] Jul, Obsessive thinking F42.8 [facility] [address] [address] 2330 Jul, Generalized anxiety disorder F41.1 and Irritable bowel syndrome with diarrhea K58.0 [facility] [id number], [place] [address] Jul, Generalized anxiety disorder F41.1 [facility] [id number][place] [id number] Jun, Generalized anxiety disorder F41.1 [facility] [address] [id number] [address]245 May, [facility] [address] [id number] May, Generalized anxiety disorder F41.1 ; Irritable bowel syndrome with diarrhea K58.0 and Coarse tremors G25.2 [facility] [address]00565[address], [place] [address] 5[address] April, [facility] [id number] [place] [address] 11736- 0551 April, [facility] [id number] [place] [address] 28913- 7775 April, [facility] [id number] [place] [address] 16639- 5488 Mar, [facility] [address] [id number] Mar, Severe episode of recurrent major depressive disorder, without psychotic features F33.2 and Pain in left hip M25.552 [facility] [id number] [place] [address] 16188- 3220 Mar, [facility] [id number] [place] [address] 66019- 3650 Mar, [facility] [id number] [place] [address] 01612- 7092 Mar, [facility] [address]65[address], [place] [address] 4959 Mar, Pain in right hip M25.551 and Self-care deficit in patient living alone R46.89 [facility] [address], [place] [address] Jan, Other chronic pain G89.29 ; Pain in left hip M25.552 and Slow transit constipation K59.01 [facility] [address]65[address], [place] [address]- 6322 Jan, [facility] [id number] [place] [address] 20386- 6210 Dec, Other depression F32.89 ; Constipation, unspecified constipation type K59.00 and Insomnia, unspecified type G47.00 [facility] [id number] [place] [address] 29700- 7551 Nov, Reactive depression F32.9 ; Chronic idiopathic constipation K59.04 ; Generalized anxiety disorder F41.1 ; Coarse tremors G25.2 ; Gastroesophageal reflux disease without esophagitis K21.9 ; Dysthymic disorder F34.1 ; Vitamin deficiency, unspecified E56.9 and Primary insomnia F51.01 [facility] [id number] [place] [address] 83853- 4385 Nov, [facility] [address] 10179- 4110 Nov, [facility] [id number] [place] [address] 86260- 6671 Nov, [facility] [id number] [place] [address] 51158- 0250 Nov, Reactive depression F32.9 ; Essential hypertension I10 ; Generalized anxiety disorder F41.1 ; Atherosclerotic heart disease of [place] 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 ; Pain in right hip M25.551 ; Other chronic pain G89.29 ; Chronic idiopathic constipation K59.04 ; Primary insomnia F51.01 ; Coarse tremors G25.2 ; Gastroesophageal reflux disease without esophagitis K21.9 ; Iron deficiency anemia secondary to inadequate dietary iron intake D50.8 and Vitamin deficiency, unspecified E56.9 [facility] [id number] [place] [address] 13890- 5672 Oct, [facility] [id number] [place] [address] 31935- 0046 Oct, [facility] [id number] [place] [address] 67107- 2919 Oct, [facility] [id number] [place] [address] 66509- 7365 Oct, Generalized anxiety disorder F41.1 ; Poor appetite R63.0 ; Dehydration E86.0 and Failure to thrive in adult R62.7 [facility] [id number] [place] [address] 73794- 2250 Oct, Generalized anxiety disorder F41.1 and Failure to thrive in adult R62.7 [facility] [id number] [place] [address] 09314- 1983 Oct, [facility] [address] 77871- 7212 Oct, [facility] [address] 20935 -4637 Sep, Vaginal discharge N89.8 and Acute cystitis with hematuria N30.01 [facility] [id number] [place] [address] 38367- 7764 Sep, [facility] [address] 38109- 7211 Sep, [facility] [id number] [place] [address] 75549- 6443 Sep, Dysthymic disorder F34.1 ; Acute vaginitis N76.0 ; Dysuria R30.0 and Vaginal yeast infection B37.3 [facility] [id number] [place] [address] 23400- 5775 Aug, [facility] [id number] [place] [address] 61712- 6082 Aug, [facility] [id number] [place] [address] 97074 -4034 Aug, Foul smelling urine R82.90 ; Rapid heart rate R00.0 and Flatulence R14.3 [facility] [id number] [place] [address] 37238- 1896 Aug, [facility] [id number] [place] [address] 76963- 7628 Jul, Constipation, unspecified constipation type K59.00 ; Weak R53.1 ; Poor appetite R63.0 ; Coronary artery disease involving [place] heart without angina pectoris, unspecified vessel or lesion type I25.10 ; Fatigue, unspecified type R53.83 ; Urinary incontinence, unspecified type R32 and Insomnia, unspecified type G47.00 [facility] [address] 45541- 6623 Jul, [facility] [address] 33747- 4028 Jun, Dysuria R30.0 [facility] [address] 03997- 6745 Jun, [facility] [address] 10668- 9479 Jun, Urinary tract infection, site not specified N39.0 ; Acute vaginitis N76.0 and Diarrhea, unspecified type R19.7 [facility] [address] 13960- 7864 May, [facility] [address] 95914- 3629 April, [facility] [address] [id number] April, Encounter for dental examination Z01.20 [facility] [address] 87741- 8245 April, [facility] [address] 04663- 7231 April, Tremor R25.1 and Episodic tension-type headache, not intractable G44.219 [facility] [address] 04956- 3149 Mar, [facility] [address] 36635- 3538 Jan, Mood disorder F39 [facility] [address], [place] [address] Jan, [facility] [address] [place] [address] 18318- 0761 Jan, [facility] [address], [place] [address]- 9307 Jan, [facility] [id number] [place] [address] 25357- 3651 Jan, [facility] [address] [place] [address] 09104- 9256 Jan, [facility] [id number] [place] [address] 25280- 5503 Jan, [facility] [id number] [place] [address] 41582 -9735 Dec, Acute diarrhea R19.7 [facility] [address] [place] [address] 25322- 4503 Dec, [facility] [address] [place] [address] 04906- 5123 Dec, [facility] [address] [place] [address] 97211- 3097 Dec, [facility] [address] [place] [address] 06200 -0536 Dec, N&V (nausea and vomiting) R11.2 [facility] [address], [place] [address]- 0603 Dec, Generalized anxiety disorder F41.1 [facility] [address] [place] [address] 04392- 0180 Dec, Generalized anxiety disorder F41.1 [facility] [address], [place] [address]- 6773 Nov, Post concussion syndrome F07.81 [facility] [id number] [place] [address] 29962651- 3796 Nov, Generalized anxiety disorder F41.1 [facility] [id number] [place] [address] 22432- 3699 Nov, [facility] [id number] [place] [address] 194521- 5754 Nov, Generalized anxiety disorder F41.1 [facility] [id number] [place] [address] [id number] Oct, Dental caries K02.9 [facility] [address] 85552- 4677 Oct, [facility] [address] [id number] Oct, Dental examination Z01.20 [facility] [address] [id number] Oct, Encounter for dental examination Z01.20 [facility] [id number] [place] [address] 16745- 5043 Oct, CAD (coronary artery disease) I25.10 [facility] [id number] [place] [address] 05438- 8998 Sep, Generalized anxiety disorder F41.1 [facility] [id number] [place] [address] 53096- 0220 Sep, [facility] [id number] [place] [address] 19835- 8799 Sep, Rash and other nonspecific skin eruption R21 and Yeast vaginitis B37.3 [facility] [address] [place] [address] 52435- 3736 Sep, Generalized anxiety disorder F41.1 [facility] [id number] [place] [address] 50863- 1132 17 Aug, 2015 Insect bites 919.4 and Hemorrhoids 455.6 [facility] [address] [place] [address]- 5787 Aug, Generalized anxiety disorder 300.02 [facility] [id number] [place] [address] 59572- 0252 08 Aug, 2015 [facility] [id number] [place] [address] 04582- 6649 Aug, [facility] [id number] [place] [address] 82451- 3092 Aug, Generalized anxiety disorder 300.02 ; No condition on [place] II V71.09 ; Heart problem 429.9 and Hypertension 401.9 [facility] [id number] [place] [address] 07453- 1311 Aug, [facility] [id number] [place] [address] 66987- 4931 Jul, [facility] [id number] [place] [address] 12196- 4192 Jul, [facility] [id number] [place] [address] 97843- 1648 Jul, [facility] [id number] [place] [address] 49995- 9172 Jul, [facility] [id number] [place] [address] 12489- 4138 Jul, Rash 782.1 [facility] [id number] [place] [address] 68920- 2558 Jul, UTI (urinary tract infection) 599.0 [facility] [id number] [place] [address] 60118- 7406 Jul, [facility] [id number] [place] [address] 92612- 4265 Jun, Dysthymia 300.4 and Anxiety 300.00 [facility] [id number] [place] [address] 60706- 3153 Jun, 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 [facility] [address] [id number], [place] [address]- 3942 May, [facility] [address] [id number], [place] [address]- 4126 May, [facility] [address] [facility] [id number], [place] [address]- 2936 May, Unspecified breast screening V76.10 [facility] [address] [id number] [id number] May, Dental examination V72.2 [facility] [address] [id number], [place] [address]- 2146 April, [facility] [address] [id number], [place] [address]- 5116 April, [facility] [address] [id number] April, Dental examination V72.2 [facility] [address] [id number] [id number] April, Dental examination V72.2 [facility] [address] [id number], [place] [address]- 7187 Mar, [facility] [address] [facility] [id number], [place] [address]- 0287 Mar, [facility] [address] [id number], [place] [address]- 8236 Jan, [facility] [address] [id number], [place] [address]- 8356 Jan, [facility] [address] [facility] [id number], [place] [address]- 9746 Jan, [facility] [address] [facility] [id number][place]- 2446 Jan, [facility] [address] [id number], [place] [address]- 5106 Jan, [facility] [place] [facility] [address] [id number] [place] [address]- 3132 16 Jan, 2015 [facility] [place] [facility] [address] [id number] [place] [address]- 3370 13 Jan, 2015 [facility] [place] [facility] [address] [id number] [place] [address]- 0309 13 Jan, 2014 [facility] [place] [facility] [address] [id number] [place] [address]- 0070 11 Jan, 2014 [facility] [place] [facility] [address] [id number] [place] [address]- 1835 11 Jan, 2015 [facility] [place] [facility] [address] [id number] [place] [address]- 1697 Jan, [facility] [place] [facility] [address] [id number] [place] [address]- 7062 Jan, [facility] [place] [facility] [address] [id number] [place] [address]- 1974 Jan, [facility] [place] [facility] [address] [id number] [place] [address]- 4233 Jan, [facility] [place] [facility] [address] [id number] [place] [address]- 8369 Jan, 2014 [facility] [place] [facility] [address] [id number] [place] [address]- 9344 Jan, 2014 [facility] [place] [facility] [address] [id number] [place] [address]- 7609 Jan, 2014 [facility] [place] [facility] [address] [id number] [place] [address]- 8903 Jan, 2014 [facility] [place] [facility] [address] [id number] [place] [address]- 3803 Jan, 2014 [facility] [place] [facility] [address] [id number] [place] [address]- 5472 Jan, 2014 [facility] [place] [facility] [address] [id number] [place] [address]- 4030 Jan, [facility] [place] [facility] [address] [id number] [place] [address]- 8241 Jan, [facility] [place] [facility] [address] [id number] [place] [address]- 5527 Dec, [facility] [place] [facility] [address] [id number] [place] [address]- 4216 Dec, [facility] [place] [facility] [address] [id number] [place] [address]- 1162 Dec, [facility] [place] [facility] [address] [id number] [place] [address]- 5787 Dec, [facility] [place] [facility] [address] [id number] [place] [address]- 6962 Nov, [facility] [place] [facility] [address] [id number] [place] [address]- 6363 Nov, [facility] [place] [facility] [address] [id number] [place] [address]- 3472 Nov, [facility] [place] [facility] [address] [id number] [place] [address] Nov, [facility] [place] [facility] [address] [facility] [id number] [place] [address] Nov, [facility] [place] [facility] [address] [id number] [place] [address] Nov, [facility] [place] [facility] [address] [id number] [place] Nov, [facility] [place] [facility] [address] [id number] [place] [address] Oct, [facility] [place] [facility] [address] [id number] [place] [address] Oct, [facility] [place] [facility] [address] [id number] [place] [address] Oct, [facility] [place] [facility] [address] [id number] [place] [address] Oct, [facility] [place] [facility] [address] [id number] [place] [address] Oct, [facility] [place] [facility] [address] [id number] [place] [address] Oct, [facility] [place] [facility] [address] [id number] [place] [address] Oct, [facility] [place] [facility] [address] [id number] [place] [address] Oct, [facility] [place] [facility] [address] [id number] [place] [address] Oct, [facility] [place] [facility] [address] [id number] [place] [address] Oct, [facility] [place] [facility] [address] [id number] [place] [address] Oct, [facility] [place] [facility] [address] [id number] [place] [address] Oct, [facility] [place] [facility] [address] [id number] [place] [address] Sep, [facility] [place] [facility] [address] [id number] [place] [address] Sep, [facility] [place] [facility] [address] [id number] [place] [address] Sep, [facility] [place] [facility] [address] [id number] [place] [address] Sep, [facility] [place] [facility] [address] [id number] [place] [address] Jul, [facility] [place] [facility] [address] [id number] [place] [address] Jul, [facility] [place] [facility] [address] [id number] [place] [address] Jul, [facility] [place] [facility] [address] [id number] [place] [address] Jul, [facility] [place] [facility] [address] [id number] [place] [address] Jun, [facility] [place] [facility] [address] [id number] [place] [address] Jun, [facility] [place] [facility] [address] [id number] [place] [address] 9678 Jun, [facility] [place] [facility] [address] [id number] [place] [address] Jun, [facility] [place] [facility] [address] [id number] [place] [address] May, [facility] [place] [facility] [address] [id number] [place] [address] 9664 May, [facility] [place] [facility] [address] [id number] [place] [address] April, [facility] [place] [facility] [address] [id number] [place] [address] 9261 April, [facility] [place] [facility] [address] [id number] [place] [address] 1127 April, [facility] [place] [facility] [address] [id number] [place] [address]- 7436 April, [facility] [place] [facility] [address] [id number] [place] [address] 9544 April, [facility] [place] [facility] [address] [id number] [place] [address] April, [facility] [place] [facility] [address] [id number] [place] [address] April, [facility] [place] [facility] [address] [id number] [place] [address] April, [facility] [place] [facility] [address] [id number] [place] [address] 3187 April, [facility] [address] [id number] [place] [address] 0205 Mar, [facility] [place] [facility] [address] [id number] [place] [address]- 0266 Mar, [facility] [place] [facility] [address] [id number] [place] [address] 4177 Mar, [facility] [place] [facility] [address] [id number] [place] [address] 89[address] Mar, [facility] [place] [facility] [address] [id number] [place] [address] Jan, [facility] [place] [facility] [address] [id number] [place] [address] Jan, [facility] [place] [facility] [address] [id number] [place] [address] 2846 Jan, [facility] [place] [facility] [address] [id number] [place] [address]- 00[address] Jan, [facility] [place] [facility] [address] [id number] [place] [address] 455[address] Jan, [facility] [place] [facility] [address] [id number] [place] [address]- 4[address] Jan, [facility] [place] [facility] [address] [id number] [place] [address]- 1827 Jan, [facility] [place] [facility] [address] [id number] [place] [address] 9[address] Jan, [facility] [place] [facility] [address] [id number] [place] [address]- 4015 Jan, [facility] [place] [facility] [address] [id number] [place] [address]- 6436 Jan, [facility] [place] [facility] [address] [id number] [place] [address]- 2817 Jan, [facility] [place] [facility] [address] [id number] [place] [address]- 0929 Jan, [facility] [place] [facility] [address] [id number] [place] [address]- 2179 Dec, [facility] [place] [facility] [address] [id number] [place] [address]- 5196 Dec, [facility] [place] [facility] [address] [id number] [place] [address]- 1336 Dec, [facility] [place] [facility] [address] [id number] [place] [address]- 3566 Dec, [facility] [place] [facility] [address] [id number] [place] [address]- 4798 Nov, [facility] [place] [facility] [address] [id number] [place] [address]- 1766 Nov, [facility] [place] [facility] [address] [id number] [place] [address]- 9893 Nov, [facility] [place] [facility] [address] [id number] [place] [address]- 1402 Nov, [facility] [place] [facility] [address] [id number] [place] [address] 2000 Oct, [facility] [place] [facility] [address] [id number], [place] [address] Oct, [facility] [place] [facility] [address] [id number], [place] [address] 95[address] Sep, [facility] [place] [facility] [address] [id number] [place] [address]- 1041 Sep, [facility] [place] [facility] [address] [id number], [place] [address] 6[address] Jul, [facility] [place] [facility] [address] [id number] [place] [address]- 3[address] Jul, [facility] [place] [facility] [address] [id number] [place] [address]- 4301 Jun, [facility] [address] [id number] [place] [address]- 4442 Jun, [facility] [address] [id number] [place] [address]- 4544 Jun, [facility] [address] [id number] [place] [address]- 6313 May, [facility] [address] [id number] [place] [address]- 2367 May, [facility] [address] [id number] [place] [address]- 5009 May, [facility] [address] [id number] [place] [address]- 5105 May, [facility] [address] [id number] [place] [address]- 5179 May, [facility] [address] [id number] [place] [address]- 0307 April, [facility] [address] [id number] [place] [address]- 9958 April, [facility] [address] [id number] [place] [address] 1944 April, [facility] [address] [id number] [place] [address]- 2883 April, [facility] [address] [id number] [place] [address] 5530 April, [facility] [place] [facility] [address] [id number] [place] [address]- 7112 April, [facility] [address] [id number] [place] [address] [address] Mar, [facility] [address] [id number] [place] [address]- 9096 15 Mar, 2013 [facility] [place] [facility] [address] [id number] [place] [address]- 4266 Jan, [facility] [address] [id number] [place] [address]- 4071 Jan, [facility] [address] [id number] [place] [address]- 1580 Jan, [facility] [address] [id number] [place] [address]- 4103 Jan, [facility] [address] [id number] [place] [address]- 4046 Jan, [facility] [address] [id number] [place] [address]- 0800 Jan, [facility] [address] [id number] [place] [address]- 3318 Jan, [facility] [address] [id number] [place] [address]- 0796 Jan, [facility] [address] [id number] [place] [address]- 2563 Jan, [facility] [address] [facility] [id number] [place] [address]- 8549 Jan, [facility] [address] [id number] [place] [address]- 0276 Jan, [facility] [address] [id number] [place] [address]- 8461 Dec, [facility] [address] [id number] [place] [address]- 2748 Nov, [facility] [address] [id number] [place] [address]- 8311 Nov, [facility] [place] [facility] [address] [id number] [place] [address]- 9892 Nov, [facility] [address] [id number] [place] [address]- 0538 26 Nov, 2012 [facility] [place] [facility] [address] [id number] [place] [address]- 7296 21 Nov, 2012 [facility] [place] [facility] [address] [id number] [place] [address] 20 Nov, 2012 [facility] [place] [facility] [address] [facility] [id number] [place] [address]- 1596 20 Nov, 2012 [facility] [place] [facility] [address] [id number] [place] [address]- 7308 19 Nov, 2012 [facility] [place] [facility] [address] [id number] [place] [address]- 4189 Nov, [facility] [place] [facility] [address] [facility] [id number] [place] [address]- 3647 18 Nov, 2012 [facility] [place] [facility] [address] [facility] [id number] [place] [address]- 5685 18 Nov, 2012 [facility] [place] [facility] [address] [id number] [place] [address]- 9652 Nov, [facility] [place] [facility] [address] [facility] [id number] [place] [address]- 9934 Nov, [facility] [place] [facility] [address] [facility] [id number] [place] [address]- 0354 Oct, [facility] [place] [facility] [address] [facility] [id number] [place] [address]- 8125 Oct, [facility] [place] [facility] [address] [facility] [id number], [place] [address]- 4336 Oct, [facility] [place] [facility] [address] [id number] [place] [address]- 8584 Sep, [facility] [place] [facility] [address] [facility] [id number] [place] [address]- 2701 Sep, [facility] [place] [facility] [address] [facility] [id number], [place] [address]- 6215 Sep, [facility] [place] [facility] [address] [id number] [place] [address]- 4469 10 Sep, 2012 [facility] [place] [facility] [address] [id number] [place] [address]- 3780 27 Aug, 2012 [facility] [place] [facility] [address] [id number] [place] [address]- 8056 20 Aug, 2012 [facility] [place] [facility] [address] [id number] [place] [address]- 8903 24 Jul, 2012 [facility] [place] [facility] [address] [id number] [place] [address]- 5347 May, [facility] [place] [facility] [address] [id number] [place] [address]- 2345 May, [facility] [place] [facility] [address] [id number] [place] [address]- 9261 May, [facility] [place] [facility] [address] [id number] [place] [address]- 3489 April, [facility] [place] [facility] [address] [id number] [place] [address]- 2973 Mar, [facility] [place] [facility] [address] [id number] [place] [address]- 2003 Mar, [facility] [place] [facility] [address] [id number] [place] [address]- 6288 Mar, [facility] [place] [facility] [address] [id number] [place] [address]- 5575 Jan, [facility] [place] [facility] [address] [id number] [place] [address]- 8491 Jan, [facility] [place] [facility] [address] [id number] [place] [address]- 2492 Jan, [facility] [place] [facility] [address] [id number] [place] [address]- 2195 Dec, [facility] [place] [facility] [address] [id number] [place] [address]- 7783 Dec, [facility] [place] [facility] [address] [id number] [place] [address]- 7416 Dec, [facility] [place] [facility] [address] [id number] [place] [address]- 4668 Dec, [facility] [place] [facility] [address] [id number] [place] [address]- 8151 Nov, [facility] [place] [facility] [address] [id number] [place] [address]- 7136 Nov, [facility] [place] [facility] [address] [id number] [place] [address]- 9039 Nov, [facility] [place] [facility] [address] [id number] [place] [address]- 9348 Oct, [facility] [place] [facility] [address] [id number] [place] [address]- 7393 Sep, [facility] [place] [facility] [address] [id number] [place] [address]- 7748 Sep, [facility] [place] [facility] [address] [id number] [place] [address]- 1120 Sep, [facility] [place] [facility] [address] [id number] [place] [address]- 8644 Nov, [facility] [place] [facility] [address] [id number], [place] [address]- 2965 Oct, [facility] [place] [facility] [address] [id number] [place] [address]- 7215 Oct, [facility] [place] [facility] [address] [id number] [place] [address]- 1969 18 Oct, 2010 [facility] [place] [facility] [address] [id number] [place] [address]- 4652 16 Oct, 2010 [facility] [place] [facility] [address] [id number] [place] [address]- 5001 11 Sep, 2010 [facility] [place] [facility] [id number], [place] [address] April, [facility] [id number], [place] [address]- 50[address] Nov, [facility] [id number], [place] [address]- 4194 Nov, [facility] [id number], [place] [address]- 1184 Nov, [facility] [id number], [place] [address]- 1783 Nov, [facility] [address] [place] [id number] [place] [address]- 7469 Nov, [facility] [id number] 6272 Oct, [facility] [id number], [place] [address]- 1181 Oct, [facility] [id number], [place] [address]- 6960 Sep, [facility] [id number], [place] [address]- 8387 Jan, IMMUNIZATIONS No Known Immunizations SOCIAL HISTORY Never Assessed REASON FOR VISIT Requests return call PLAN OF CARE VITAL SIGNS MEDICATIONS Medication Instructions Dosage Frequency Start Date End Date Duration Status Mucinex 600 MG Orally every 12 hrs 1 tablet 12h 20 Nov, 2017 Nov, 07 days Active RESULTS No Results PROCEDURES No Known procedures INSTRUCTIONS MEDICATIONS ADMINISTERED No Known Medications MEDICAL (GENERAL) HISTORY Type Description Date Medical History Hypertension Medical History Heart disease CABG X3 Stress test 07/2015 Medical History Gastric ulcer Medical History Hyperlipidemia Medical History Headache syndrome Medical History Psychiatric disorders-depression/racing thoughts Medical History Depression Medical History At [facility] 04/2016 Started on Eliquis Medical History Anemia 04/2016 postsurgical hip fx Surgical History right hip replacement w/ Dr. Bruce 2011 Surgical History triple bypass surgery 2003 Surgical History S/P left hip IM [facility] (Intertrechanteric hip fx) 04/28/16 Hospitalization History surgeries Hospitalization History Hypertension Hospitalization History ER for a concussion 11/24/15 Hospitalization History Intertrechanteric hip fx 04/27/16 Hospitalization History [facility] (inpatient [facility] 2 times) Hx of 3 inpatient psych treatments in past in [place] oct 2016 [facility]
--- OUTSIDE RECORDS SUMMARY | 2018-08-20 12:44 | XMS REPORT ---
Author Author WOLF AGUIRRE [facility] Address [address] [place] [address] Care Team Providers Care Cone Treater Name Role Phone WOLF AGUIRRE Unavailable PROBLEMS Type Condition ICD9-CM Code [id number] Code Onset Dates Condition Status SNOMED Code Problem Coarse tremors G25.2 Active 41151227 Problem Gastroesophageal reflux disease without esophagitis K21.9 Active 884041482 Problem Reactive depression F32.9 Active 83838785 Problem Irritable bowel syndrome with diarrhea K58.0 Active 507905679 Problem Vascular dementia with behavior disturbance F01.51 Active [id number] Problem Severe episode of recurrent major depressive disorder, without psychotic features F33.2 Active 07174459 Problem Constipation, unspecified constipation type K59.00 Active 57518157 Problem Sundowning F05 Active 043419382 Problem Insomnia, unspecified type G47.00 Active 293725930 Problem Essential hypertension I10 Active 59365397 Problem Slow transit constipation K59.01 Active 98672967 Problem Other chronic pain G89.29 Active 21578238 Problem Hypertension I10 Active 16392017 Problem Dysthymic disorder F34.1 Active 94669189 Problem Generalized anxiety disorder F41.1 Active 75729690 Problem Encounter for dental examination Z01.20 Active 032059898 Problem Atherosclerotic heart disease of [place] 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 Active 218724385888053 Problem Other chronic pain G89.29 Active 79185202 Problem Failure to thrive in adult R62.7 Active 131577073 Problem Primary insomnia F51.01 Active 5971569 Problem Poor appetite R63.0 Active 62912458 Problem Iron deficiency anemia secondary to inadequate dietary iron intake D50.8 Active 627271450 ALLERGIES No Information SOCIAL HISTORY Never Assessed [...] History Intertrechanteric hip fx 04/27/16 Hospitalization History [facility] oct 2016 [facility] Nov 2016
--- OUTSIDE RECORDS SUMMARY | 2018-08-20 12:45 | XMS REPORT ---
Author Author WOLF AGUIRRE [facility] Address [address] [place] [address] Care Team Providers Care Party Demonstrator Name Role Phone WOLF AGUIRRE Unavailable PROBLEMS Type Condition ICD9-CM Code [id number] Code Onset Dates Condition Status SNOMED Code Problem Sundowning F05 Active 357021881 Problem Constipation, unspecified constipation type K59.00 Active 89843723 Problem Reactive depression F32.9 Active 65666399 Problem Vascular dementia with behavior disturbance F01.51 Active 516642519487536 Problem Insomnia, unspecified type G47.00 Active 411248480 Problem Generalized anxiety disorder F41.1 Active 22520361 Problem Other chronic pain G89.29 Active 70247553 Problem Severe episode of recurrent major depressive disorder, without psychotic features F33.2 Active 73574863 Problem Slow transit constipation K59.01 Active 41098315 Problem 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 Active 850382386 Problem Obsessive thinking F42.8 Active 76262958 Problem Failure to thrive in adult R62.7 Active 557892231 Problem Dysthymic disorder F34.1 Active 53069205 Problem Hypertension I10 Active 99984853 Problem Mood disorder F39 Active 02247924 Problem Irritable bowel syndrome with diarrhea K58.0 Active 118699197 Problem Oropharyngeal dysphagia R13.12 Active 09376095 Problem 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 Active 12607185 Problem Other chronic pain G89.29 Active 22320186 Problem Primary insomnia F51.01 Active 2642296 Problem Poor appetite R63.0 Active 59150328 Problem Atherosclerotic heart disease of [place] 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 Active 539684517738342 Problem Iron deficiency anemia secondary to inadequate dietary iron intake D50.8 Active 889147972 Problem Coarse tremors G25.2 Active 95972679 Problem Gastroesophageal reflux disease without esophagitis K21.9 Active 873780793 Problem Essential hypertension I10 Active 41375471 ALLERGIES No Information ENCOUNTERS Encounter Location Date Diagnosis [facility] [id number] [place] [address] 73353- 7073 Mar, [facility] [id number] [place] [address] 05539- 0249 Mar, [facility] [id number] [place] [address] 26658- 0715 Mar, [place] [address] 60044- 5522 Jan, [place] [id number] [place] [address] 08687- 6278 Jan, [facility] [address] [id number] Jan, Constipation, unspecified constipation type K59.00 and Other chronic pain G89.29 [place] [address] 47556- 5241 Jan, [facility] [address] [id number] Jan, Obsessive thinking F42.8 and Coarse tremors G25.2 [place] [id number] [place] [address] [id number] Jan, [place] [id number] [place] [address] [id number] Jan, [facility] [address] [id number] Jan, Generalized anxiety disorder F41.1 ; Obsessive thinking F42.8 ; Callus of foot L84 and 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 [place] [id number] [place] [address] 04305- 9278 Dec, Generalized anxiety disorder F41.1 and Severe episode of recurrent major depressive disorder, without psychotic features F33.2 [place] [id number] [place] [address] 51973- 9759 Nov, [place] [address], [place] [address] 4526 Nov, [facility] [place] [address] [place] [id number] Nov, Oropharyngeal dysphagia R13.12 ; Generalized anxiety disorder F41.1 and 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 [facility] [address] Nov, [facility] [id number] [id number] Nov, [facility] [address]- 7556 Nov, [facility] [address] 9960 Nov, [facility] [address], [place] [address]- 1552 Oct, Constipation, unspecified constipation type K59.00 and Mood disorder F39 [facility] [address] 0887 Oct, [facility] [id number] [id number] Sep, [facility] [id number] [id number] Sep, [facility] [id number] [address] Sep, [facility] [id number] [address] Sep, [facility] [place] [address] [id number] Sep, Generalized abdominal pain R10.84 [facility] [id number], [place] [address]- 6236 Sep, [facility] [id number] [id number] Sep, Generalized anxiety disorder F41.1 and Primary insomnia F51.01 [facility] [place] [id number] [id number] Aug, [facility] [place] [address] [id number] [address] Aug, Generalized anxiety disorder F41.1 [facility] [address], [place] [address]- 9026 Jul, [facility] [address] [id number] Jul, Obsessive thinking F42.8 [facility] [address]65[address] [address] 1613 Jul, Generalized anxiety disorder F41.1 and Irritable bowel syndrome with diarrhea K58.0 [facility] [place] [id number] [address] Jul, Generalized anxiety disorder F41.1 [facility] [place] [id number] [place] [address] [id number] Jun, Generalized anxiety disorder F41.1 [facility] [address]65[address], [place] [address]- 9640 May, [facility] [address] [id number] May, Generalized anxiety disorder F41.1 ; Irritable bowel syndrome with diarrhea K58.0 and Coarse tremors G25.2 [facility] [address], [place] [address] 57[address] April, [facility] [address]00565100[place], [place] [address]- 3392 April, [facility] [address], [place] [address]- 2763 April, [facility] [address] [id number], [place] [address]- 9002 Mar, [facility] [address] [id number] Mar, Severe episode of recurrent major depressive disorder, without psychotic features F33.2 and Pain in left hip M25.552 [facility] [id number] [place] [address] 60334- 4306 Mar, [facility] [id number] [place] [address] 22266- 3677 Mar, [facility] [id number] [place] [address] 20709- 6471 Mar, [place] [id number] [place] [address] 96789- 1504 Mar, Pain in right hip M25.551 and Self-care deficit in patient living alone R46.89 [facility] [id number] [place] [address] 84262 -3024 Jan, Other chronic pain G89.29 ; Pain in left hip M25.552 and Slow transit constipation K59.01 [place] [id number] [place] [address] 61231- 2287 Jan, [place] [id number] [place] [address] 77830- 4177 Dec, Other depression F32.89 ; Constipation, unspecified constipation type K59.00 and Insomnia, unspecified type G47.00 [place] [id number] [place] [address] 65334- 1797 Nov, Reactive depression F32.9 ; Chronic idiopathic constipation K59.04 ; Generalized anxiety disorder F41.1 ; Coarse tremors G25.2 ; Gastroesophageal reflux disease without esophagitis K21.9 ; Dysthymic disorder F34.1 ; Vitamin deficiency, unspecified E56.9 and Primary insomnia F51.01 [place] [id number] [place] [address] 77147- 6129 Nov, [place] [id number] [place] [address] 08714- 2247 Nov, [place] [address] [place] [address]- 8832 Nov, [facility] [id number] [place] [address] 85177- 4232 Nov, Reactive depression F32.9 ; Essential hypertension I10 ; Generalized anxiety disorder F41.1 ; Atherosclerotic heart disease of [place] 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 ; Pain in right hip M25.551 ; Other chronic pain G89.29 ; Chronic idiopathic constipation K59.04 ; Primary insomnia F51.01 ; Coarse tremors G25.2 ; Gastroesophageal reflux disease without esophagitis K21.9 ; Iron deficiency anemia secondary to inadequate dietary iron intake D50.8 and Vitamin deficiency, unspecified E56.9 [place] [id number] [place] [address] 35410- 6885 Oct, [place] [address] 46656- 2925 Oct, [facility] [address] 74442- 7036 Oct, [facility] [id number] [place] [address] 47412- 9493 Oct, Generalized anxiety disorder F41.1 ; Poor appetite R63.0 ; Dehydration E86.0 and Failure to thrive in adult R62.7 [place] [id number] [place] [address] 81589- 4742 Oct, Generalized anxiety disorder F41.1 and Failure to thrive in adult R62.7 [place] [id number] [place] [address] 69375- 0554 Oct, [facility] [address] 06435- 0849 Oct, [facility] [id number] [place] [address] 42577 -3014 Sep, Vaginal discharge N89.8 and Acute cystitis with hematuria N30.01 [place] [address] [place] [address]- 4197 Sep, [facility] [id number] [place] [address] 81718- 1268 Sep, [facility] [id number] [place] [address] 70540- 0355 Sep, Dysthymic disorder F34.1 ; Acute vaginitis N76.0 ; Dysuria R30.0 and Vaginal yeast infection B37.3 [facility] [id number] [place] [address] 71588- 8394 Aug, [facility] [address] 20392- 6824 Aug, [facility] [id number] [place] [address] 66699 -6369 Aug, Foul smelling urine R82.90 ; Rapid heart rate R00.0 and Flatulence R14.3 [place] [id number] [place] [address] 03787- 7094 Aug, [facility] [id number] [place] [address] 58173- 7961 Jul, Constipation, unspecified constipation type K59.00 ; Weak R53.1 ; Poor appetite R63.0 ; Coronary artery disease involving [place] heart without angina pectoris, unspecified vessel or lesion type I25.10 ; Fatigue, unspecified type R53.83 ; Urinary incontinence, unspecified type R32 and Insomnia, unspecified type G47.00 [facility] [id number] [place] [address] 94135- 7190 Jul, [facility] [id number] [place] [address] 60485- 0458 Jun, Dysuria R30.0 [place] [id number] [place] [address] 26371- 4270 Jun, [facility] [id number] [place] [address] 22818- 6144 Jun, Urinary tract infection, site not specified N39.0 ; Acute vaginitis N76.0 and Diarrhea, unspecified type R19.7 [facility] [id number] [place] [address] 26124- 4324 May, [facility] [id number] [place] [address] 77529- 9114 April, [facility] [id number] [place] [address] [id number] April, Encounter for dental examination Z01.20 [facility] [id number] [place] [address] 42495- 7348 April, [facility] [id number] [place] [address] 95879- 7357 April, Tremor R25.1 and Episodic tension-type headache, not intractable G44.219 [facility] [id number] [place] [address] 72398- 2855 Mar, [facility] [id number] [place] [address] 60616- 6583 Jan, Mood disorder F39 [facility] [id number] [place] [address] 98502 -2173 Jan, [facility] [id number] [place] [address] 15998- 3649 Jan, [facility] [id number] [place] [address] 49305- 6389 Jan, [facility] [id number] [place] [address] 76561- 3644 Jan, [facility] [id number] [place] [address] 89962- 9531 Jan, [facility] [id number] [place] [address] 14684- 6562 Jan, [facility] [id number] [place] [address] 08998 -4939 Dec, Acute diarrhea R19.7 [facility] [id number] [place] [address] 92920- 5453 Dec, [facility] [id number] [place] [address] 48701- 4295 Dec, [facility] [id number] [place] [address] 94880- 6719 Dec, [facility] [id number] [place] [address] 96033 -6558 Dec, N&V (nausea and vomiting) R11.2 [facility] [id number] [place] [address] 44524- 6752 Dec, Generalized anxiety disorder F41.1 [facility] [id number] [place] [address] 42977- 3967 Dec, Generalized anxiety disorder F41.1 [facility] [id number] [place] [address] 01018- 3951 Nov, Post concussion syndrome F07.81 [facility] [address] 39438- 1508 Nov, Generalized anxiety disorder F41.1 [facility] [id number] [place] [address] 70764- 0419 Nov, [facility] [id number] [place] [address] 22964- 8971 Nov, Generalized anxiety disorder F41.1 [facility] [address] [place] [address] [id number] Oct, Dental caries K02.9 [facility] [id number] [place] [address] 10105- 1754 Oct, [facility] [address] [place] [address] [id number] Oct, Dental examination Z01.20 [facility] [id number] [place] [address] [id number] 10 Oct, 2015 Encounter for dental examination Z01.20 [facility] [address] 23348- 5845 Oct, CAD (coronary artery disease) I25.10 [facility] [address] 08166- 8755 Sep, Generalized anxiety disorder F41.1 [facility] [address] 42730- 9340 Sep, [facility] [address] 49811- 4288 Sep, Rash and other nonspecific skin eruption R21 and Yeast vaginitis B37.3 [place] [address] 85379- 5984 Sep, Generalized anxiety disorder F41.1 [facility] [address] 72894- 7261 Aug, Insect bites 919.4 and Hemorrhoids 455.6 [facility] [address] 88461- 0706 Aug, Generalized anxiety disorder 300.02 [facility] [id number] [place] [address] 17054- 9673 08 Aug, 2015 [facility] [address] 26431- 3093 Aug, [facility] [address] 49735- 8987 Aug, Generalized anxiety disorder 300.02 ; No condition on [place] V71.09 ; Heart problem 429.9 and Hypertension 401.9 [facility] [id number] [place] [address] 42361- 8826 Aug, [facility] [address] 74532- 1121 Jul, [facility] [id number], [place] [address]- 3880 Jul, [facility] [address], [place] [address]- 6467 Jul, [facility] [address], [place] [address]- 9812 Jul, [facility] [address] [place] [address] 63537- 3798 Jul, Rash 782.1 [facility] [address] [place] [address] 62766- 5335 Jul, UTI (urinary tract infection) 599.0 [facility] [address], [place] [address]- 1931 Jul, [facility] [address] [place] [address] 65260- 1473 Jun, Dysthymia 300.4 and Anxiety 300.00 [facility] [address], [place] [address]- 3064 Jun, 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 [facility] [address], [place] [address]- 8907 May, [facility] [address], [place] [address]- 8732 May, [facility] [id number], [place] [address]- 4457 May, Unspecified breast screening V76.10 [facility] [address] [id number] [id number] May, Dental examination V72.2 [facility] [address], [place] [address]- 0780 April, [facility] [id number], [place] [address]- 1530 April, [facility] [place] [facility] [address] [id number] [id number] April, Dental examination V72.2 [facility] [address] [id number] [id number] April, Dental examination V72.2 [facility] [address] [id number], [place] [address]- 8219 14 Mar, 2015 [facility] [place] [facility] [address] [id number], [place] [address]- 4535 Mar, [facility] [place] [facility] [address] [id number] [place] [address]- 6933 25 Jan, 2015 [facility] [place] [facility] [address] [id number], [place] [address]- 0416 25 Jan, 2015 [facility] [place] [facility] [address] [id number], [place] [address]- 1047 18 Jan, 2015 [facility] [place] [facility] [address] [id number], [place] [address]- 2608 18 Jan, 2015 [facility] [place] [facility] [address] [id number], [place] [address]- 8748 16 Jan, 2015 [facility] [place] [facility] [address] [id number], [place] [address]- 1367 16 Jan, 2015 [facility] [place] [facility] [address] [id number], [place] [address]- 5425 13 Jan, 2015 [facility] [place] [facility] [address] [id number][place]- 5321 13 Jan, 2015 [facility] [place] [facility] [address] [id number][place]- 8389 11 Jan, 2015 [facility] [place] [facility] [address] [id number][place]- 3556 11 Jan, 2015 [facility] [place] [facility] [address] [id number][place]- 7433 11 Jan, 2015 [facility] [place] [facility] [address] [id number], [place] [address]- 0504 Jan, [facility] [place] [facility] [address] [id number] [address]- 8502 Jan, [facility] [place] [facility] [address] [id number] [place] [address]- 6373 Jan, [facility] [place] [facility] [address] [id number] [place] [address]- 9836 Jan, 2014 [facility] [place] [facility] [address] [id number] [place] [address]- 4654 Jan, 2014 [facility] [place] [facility] [address] [id number] [place] [address]- 7490 Jan, 2014 [facility] [place] [facility] [address] [id number] [place] [address] Jan, 2014 [facility] [place] [facility] [address] [facility] [id number] [place] [address] Jan, [facility] [place] [facility] [address] [facility] [id number] [place] [address] Jan, [facility] [place] [facility] [address] [facility] [id number] [place] [address] Jan, [facility] [place] [facility] [address] [facility] [id number] [place] [address] Jan, [facility] [place] [facility] [address] [facility] [id number] [place] [address] Dec, [facility] [place] [facility] [address] [id number] [place] [address] Dec, [facility] [place] [facility] [address] [id number] [place] [address] Dec, [facility] [place] [facility] [address] [facility] [id number] [place] [address] Dec, [facility] [place] [facility] [address] [facility] [id number] [place] [address] Nov, [facility] [place] [facility] [address] [id number] [place] [address] Nov, [facility] [place] [facility] [address] [id number] [place] [address] Nov, [facility] [place] [facility] [address] [id number] [place] [address] Nov, [facility] [place] [facility] [address] [id number] [place] [address] Nov, [facility] [place] [facility] [address] [id number] [place] [address] Nov, [facility] [place] [facility] [address] [id number] [place] [address] Nov, [facility] [place] [facility] [address] [id number] [place] [address] Oct, [facility] [place] [facility] [address] [id number] [place] [address] Oct, [facility] [place] [facility] [address] [id number] [place] [address] Oct, [facility] [place] [facility] [address] [id number] [place] [address] Oct, [facility] [place] [facility] [address] [id number] [place] [address] Oct, [facility] [place] [facility] [address] [id number], [place] [address] Oct, [facility] [place] [facility] [address] [id number] [place] [address] Oct, [facility] [place] [facility] [address] [id number] [place] [address] Oct, [facility] [place] [facility] [address] [id number], [place] [address] Oct, [facility] [place] [facility] [address] [id number], [place] [address] Oct, [facility] [place] [facility] [address] [id number] [place] [address] Oct, [facility] [place] [facility] [address] [id number] [place] [address] Oct, [facility] [place] [facility] [address] [id number] [place] [address] Sep, [facility] [place] [facility] [address] [address] [id number] [place] [address] Sep, [facility] [place] [facility] [address] [id number] [place] [address] Sep, [facility] [place] [facility] [address] [id number] [place] [address] Sep, [facility] [place] [facility] [address] [id number] [place] [address] Jul, [facility] [place] [facility] [address] [id number] [place] [address] Jul, [facility] [place] [facility] [address] [id number] [place] [address]692 Jul, [facility] [place] [facility] [address] [facility] [id number] [place] [address] Jul, [facility] [place] [facility] [address] [id number] [place] [address] Jun, [facility] [place] [facility] [address] [id number] [place] [address] 9209 Jun, [facility] [place] [facility] [address] [id number] [place] [address] 8070 Jun, [facility] [place] [facility] [address] [id number] [place] [address] 9341 Jun, [facility] [place] [facility] [address] [facility] [id number] [place] [address]- 9934 May, [facility] [place] [facility] [address] [id number] [place] [address] 2525 May, [facility] [place] [facility] [address] [id number] [place] [address] 8[address] April, [facility] [place] [facility] [address] [id number] [place] [address] 8135 April, [facility] [place] [facility] [address] [id number] [place] [address]- 9512 April, [facility] [place] [facility] [address] [id number] [place] [address] April, [facility] [place] [facility] [address] [id number] [place] [address] 4989 April, [facility] [place] [facility] [address] [id number] [place] [address] April, [facility] [place] [facility] [address] [id number] [place] [address] 8093 April, [facility] [place] [facility] [address] [id number] [place] [address] April, [facility] [place] [facility] [address] [id number] [place] [address]- [address] April, [facility] [place] [facility] [address] [id number] [place] [address] 3091 Mar, [facility] [place] [facility] [address] [id number] [place] [address]- 0233 Mar, [facility] [place] [facility] [address] [id number] [place] [address] 3220 Mar, [facility] [place] [facility] [address] [id number] [place] [address]- 6968 Mar, [facility] [place] [facility] [address] [id number] [place] [address] 8376 Jan, [facility] [place] [facility] [address] [id number] [place] [address]- 0463 Jan, [facility] [place] [facility] [address] [id number] [place] [address]- 8[address] Jan, [facility] [place] [facility] [address] [id number] [place] [address] 50[address] Jan, [facility] [place] [facility] [address] [id number] [place] [address] 4939 Jan, [facility] [place] [facility] [address] [id number] [place] [address]- 8557 Jan, [facility] [place] [facility] [address] [id number] [place] [address]- 8802 Jan, [facility] [place] [facility] [address] [id number] [place] [address]- 3157 Jan, [facility] [place] [facility] [address] [id number] [place] [address]- 1265 Jan, [facility] [place] [facility] [address] [id number] [place] [address] 0883 Jan, [facility] [place] [facility] [address] [id number] [place] [address] 6601 Jan, [facility] [place] [facility] [address] [id number] [place] [address] 9629 Jan, [facility] [place] [facility] [address] [id number] [place] [address]- 2964 Dec, [facility] [place] [facility] [address] [id number] [place] [address]- 7038 Dec, [facility] [place] [facility] [address] [id number] [place] [address]- 9854 Dec, [facility] [place] [facility] [address] [id number] [place] [address]- 6241 Dec, [facility] [place] [facility] [address] [id number] [place] [address]- 0830 Nov, [facility] [place] [facility] [address] [id number] [place] [address] 4326 Nov, [facility] [address] [id number] [place] [address]- 9609 Nov, [facility] [place] [facility] [address] [id number] [place] [address]- 2106 Nov, [facility] [address] [id number] [place] [address]- 0487 Oct, [facility] [place] [facility] [address] [id number] [place] [address]- 0966 Oct, [facility] [address] [id number] [place] [address]- 8980 Sep, [facility] [address] [id number] [place] [address] 2170 Sep, [facility] [address] [id number] [place] [address]- 7011 Jul, [facility] [address] [id number] [place] [address] 9133 Jul, [facility] [address] [id number] [place] [address]- 0485 Jun, [facility] [address] [id number] [place] [address]- 0959 Jun, [facility] [place] [facility] [address] [id number] [place] [address]- 4248 Jun, [facility] [place] [facility] [address] [id number] [place] [address] 8009 May, [facility] [place] [facility] [address] [id number] [place] [address]- 8019 May, [facility] [place] [facility] [address] [id number] [place] [address]- [address]46 17 May, 2013 [facility] [place] [facility] [address] [id number] [place] [address] 2260 May, [facility] [address] [id number] [place] [address]- 7671 May, [facility] [place] [facility] [address] [id number] [place] [address]- 2550 April, [facility] [address] [id number] [place] [address]- 7704 April, [facility] [place] [facility] [address] [id number] [place] [address]- 4346 April, [facility] [address] [id number] [place] [address]- 5820 April, [facility] [place] [facility] [address] [id number] [place] [address] April, [facility] [address] [id number] [place] [address]- 4686 April, [facility] [address] [id number] [place] [address]- 0420 Mar, [facility] [place] [facility] [address] [id number] [place] [address]- 8992 Mar, [facility] [address] [id number] [place] [address]- 0345 Jan, [facility] [place] [facility] [address] [id number] [place] [address]- 0199 Jan, [facility] [place] [facility] [address] [id number], [place] [address]- 45[address] Jan, [facility] [place] [facility] [address] [id number] [place] [address]- 3288 Jan, [facility] [place] [facility] [address] [id number] [place] [address]- 8239 Jan, [facility] [place] [facility] [address] [id number] [place] [address]- 3981 Jan, [facility] [place] [facility] [address] [id number] [place] [address]- 6807 05 Jan, 2012 [facility] [address] [id number] [place] [address]- 2016 04 Jan, 2012 [facility] [address] [id number] [place] [address] 2546 Jan, 2012 [facility] [address] [id number] [place] [address] 2546 Jan, 2012 [facility] [address] [id number] [place] [address] 2546 Jan, [facility] [address] [id number] [place] [address]- 5001 Dec, [facility] [address] [id number] [place] [address]- 3642 Nov, [facility] [address] [id number] [place] [address]- 8266 Nov, [facility] [address] [id number] [place] [address]- 1731 Nov, [facility] [address] [id number] [place] [address]- 4793 Nov, [facility] [address] [facility] [id number] [place] [address]- 2542 Nov, [facility] [address] [id number] [place] [address] 2546 Nov, [facility] [address] [id number] [place] [address] 2546 Nov, [facility] [address] [id number] [place] [address] 2546 Nov, [facility] [address] [id number] [place] [address]- 2546 Nov, [facility] [address] [facility] [id number] [place] [address]- 0189 18 Nov, 2012 [facility] [place] [facility] [address] [id number] [place] [address]- 7882 18 Nov, 2012 [facility] [place] [facility] [address] [id number] [place] [address]- 5221 Nov, [facility] [place] [facility] [address] [id number] [place] [address]- 6881 Nov, [facility] [place] [facility] [address] [id number] [place] [address]- 2796 Oct, [facility] [place] [facility] [address] [id number] [place] [address]- 7384 Oct, [facility] [place] [facility] [address] [id number] [place] [address]- 1706 Oct, [facility] [place] [facility] [address] [facility] [id number] [place] [address]- 6098 Sep, [facility] [place] [facility] [address] [id number] [place] [address]- 9654 Sep, [facility] [place] [facility] [address] [facility] [id number] [place] [address]- 9988 Sep, [facility] [place] [facility] [address] [facility] [id number], [place] [address]- 0439 Sep, [facility] [place] [facility] [address] [facility] [id number], [place] [address]- 5163 27 Aug, 2012 [facility] [place] [facility] [address] [id number], [place] [address]- [address]88 20 Aug, 2012 [facility] [place] [facility] [address] [id number] [place] [address]- 7504 24 Jul, 2012 [facility] [place] [facility] [address] [id number], [place] [address]- 7296 27 May, 2012 [facility] [place] [facility] [address] [facility] [id number], [place] [address]- 8836 14 May, 2012 [facility] [place] [facility] [address] [id number], [place] [address]- 8345 14 May, 2012 [facility] [address] [id number] [place] [address]- 3276 April, [facility] [place] [facility] [address] [id number] [place] [address]- 1437 Mar, [facility] [place] [facility] [address] [id number] [place] [address]- 6627 Mar, [facility] [place] [facility] [address] [id number] [place] [address]- 3752 Mar, [facility] [address] [id number] [place] [address]- 7896 Jan, [facility] [place] [facility] [address] [id number] [place] [address]- 0624 Jan, [facility] [address] [id number] [place] [address]- 0085 Jan, [facility] [place] [facility] [address] [id number] [place] [address]- 3339 Dec, [facility] [address] [id number] [place] [address]- 4898 Dec, [facility] [place] [facility] [address] [facility] [id number] [place] [address]- 2190 Dec, [facility] [address] [id number] [place] [address]- 2312 Dec, [facility] [place] [facility] [address] [id number] [place] [address]- 0592 Nov, [facility] [place] [facility] [address] [id number] [place] [address]- 2903 15 Nov, 2011 [facility] [place] [facility] [address] [id number] [place] [address]- 7374 Nov, [facility] [place] [facility] [address] [facility] [id number] [place] [address]- 5811 Oct, [facility] [place] [facility] [address] [id number] [place] [address]- 1679 31 Sep, 2011 [facility] [place] [facility] [address] [id number] [place] [address]- 7146 26 Sep, 2011 [facility] [place] [facility] [address] [id number] [place] [address]- 1716 13 Sep, 2011 [facility] [place] [facility] [address] [id number] [place] [address]- 2736 15 Nov, 2010 [facility] [place] [facility] [address] [id number] [place] [address]- 4911 23 Oct, 2010 [facility] [place] [facility] [address] [id number] [place] [address]- 0920 Oct, [facility] [place] [facility] [address] [id number] [place] [address]- 1498 18 Oct, 2010 [facility] [place] [facility] [address] [id number] [place] [address]- 0351 16 Oct, 2010 [facility] [place] [facility] [address] [id number] [place] [address]- 8023 Sep, [facility] [place] [facility] [address] [id number] [place] [address]- 1040 April, [facility] [place] [facility] [address] [id number] [place] [address]- 4730 29 Nov, 2009 [facility] [place] [facility] [address] [id number] [place] [address]- 6421 24 Nov, 2009 [facility] [place] [facility] [address] [id number] [place] [address]- 2540 22 Nov, 2009 [facility] [place] [facility] [address] [id number] [place] [address] 2546 10 Nov, 2009 [facility] [place] [facility] [address] [id number] [place] [address]- 2546 Nov, [facility] [place] [facility] [address] [id number] [place] [address]- 2547 Oct, [facility] [address] [facility] [id number], [place] [address]- 4876 Oct, [facility] [address] [facility] [id number], [place] [address]- 8406 Sep, [facility] [address] [facility] [id number], [place] [address]- 2546 Jan, IMMUNIZATIONS No Known Immunizations SOCIAL HISTORY Never Assessed REASON FOR VISIT routine Visit PLAN OF CARE Activity Details Follow Up prn Reason: VITAL SIGNS MEDICATIONS Medication Instructions Dosage Frequency Start Date End Date Duration Status Olanzapine 2.5 MG TAKE 1/2 TABLET BY MOUTH TWICE DAILY 30 Active Primidone 50 MG Orally Once a day 1 tablet 24h Nov, 30 days Active MiraLax - Orally 2 times a day 8 grams mixed with 8oz of juice or tea 12h Nov, Active Zyprexa 2.5 MG Orally twice a day 1/2 tablet 12h Active Klonopin 0.5 MG Orally at bedtime 1 tablet May, 28 days Active Naproxen 500 mg Orally every 12 hrs 1 tablet as needed 12h Jan, Active Sertraline HCl 50 mg Orally Once a day 1 tablet 24h Active Vitamin D-3 1000 UNIT Orally Once a day 2 capsules 24h Nov, 30 days Active Rivastigmine 4.6 MG/24HR APPLY ONE PATCH TRANSDERMALLY EVERY DAY 30 Active Acetaminophen 500 MG Orally every 6 hrs 1 tablets as needed 6h Nov, Active Lisinopril 5 MG Orally Once a day 1 tablet 24h Nov, 30 days Active Aspir-81 81 MG Orally Once a day 1 tablet 24h Nov, Active Carafate 1 GM Orally 4 times a day (Before meals and bedtime) 1 tablet on an empty stomach Nov, 30 days Active Celexa 10 mg Orally Once a day 1.5 tablets 24h Active Citalopram Hydrobromide 10 MG TAKE 1 AND 1/2 TABLETS BY MOUTH EVERY DAY 30 Active Ibuprofen 200 mg Orally every 6 hrs 2 tablet as needed 6h Nov, Active Exelon 4.6 MG/24HR Transdermal Once a day 1 patch to skin 24h Active Melatonin 3 MG Orally Once a day 1 tablet at bedtime as needed with food 24h Nov, 30 days Active RESULTS No Results PROCEDURES Procedure Date Ordered Result Body Site Minor complication (15 mins) Jul 09, 2017 INSTRUCTIONS MEDICATIONS ADMINISTERED No Known Medications [...] History Intertrechanteric hip fx 04/27/16 Hospitalization History [facility] ([facility]patient [facility] times) Hx of 3 inpatient psych treatments in past in [place] oct 2016 [facility]
--- OUTSIDE RECORDS SUMMARY | 2018-08-20 12:46 | XMS REPORT ---
Author Author WOLF AGUIRRE [facility] Address [address] [place] [address] Care Team Providers Care [employer] Name Role Phone WOLF AGUIRRE Unavailable PROBLEMS Type Condition ICD9-CM Code QYR94-IR Code Onset Dates Condition Status SNOMED Code Problem Sundowning F05 Active 762410548 Problem Constipation, unspecified constipation type K59.00 Active 27469447 Problem Reactive depression F32.9 Active 12838389 Problem Vascular dementia with behavior disturbance F01.51 Active 585098088273914 Problem Insomnia, unspecified type G47.00 Active 386993323 Problem Generalized anxiety disorder F41.1 Active 75893297 Problem Other chronic pain G89.29 Active 86160560 Problem Severe episode of recurrent major depressive disorder, without psychotic features F33.2 Active 08876941 Problem Slow transit constipation K59.01 Active 21675415 Problem 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 Active 652999140 Problem Obsessive thinking F42.8 Active 06984851 Problem Failure to thrive in adult R62.7 Active 949951501 Problem Dysthymic disorder F34.1 Active 50051235 Problem Hypertension I10 Active 25729648 Problem Mood disorder F39 Active 49516751 Problem Irritable bowel syndrome with diarrhea K58.0 Active 443870439 Problem Oropharyngeal dysphagia R13.12 Active 87765299 Problem 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 Active 03619145 Problem Other chronic pain G89.29 Active 10193506 Problem Primary insomnia F51.01 Active 3277202 Problem Poor appetite R63.0 Active 45788492 Problem Atherosclerotic heart disease of [place] 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 Active 649348341116634 Problem Iron deficiency anemia secondary to inadequate dietary iron intake D50.8 Active 672092612 Problem Coarse tremors G25.2 Active 92902383 Problem Gastroesophageal reflux disease without esophagitis K21.9 Active 575407237 Problem Essential hypertension I10 Active 12137189 ALLERGIES No Information ENCOUNTERS Encounter Location Date Diagnosis [facility] [id number] [place] [address] 23109- 8921 Jan, [facility] [facility] [id number] [place] [address] 20691- 9947 Jan, [facility] [address] [id number] Jan, Constipation, unspecified constipation type K59.00 and Other chronic pain G89.29 [place] [address] 06579- 5288 Jan, [facility] [address] [id number] Jan, Obsessive thinking F42.8 and Coarse tremors G25.2 [place] [address] [id number] Jan, [place] [address] [id number] Jan, [facility] [address] [id number] Jan, Generalized anxiety disorder F41.1 ; Obsessive thinking F42.8 ; Callus of foot L84 and 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 [facility] [facility] [id number] [place] [address] 15595- 2239 Dec, Generalized anxiety disorder F41.1 and Severe episode of recurrent major depressive disorder, without psychotic features F33.2 [place] [id number] [place] [address] 38962- 2267 Nov, [place] [address] 09889- 9381 Nov, [facility] [address] [id number] Nov, Oropharyngeal dysphagia R13.12 ; Generalized anxiety disorder F41.1 and 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 [place] [address] 94016- 9576 Nov, [facility] [id number] [id number] Nov, [facility] [address], [place] [address]- 8776 Nov, [facility] [address], [place] [address] 2546 Nov, [facility] [id number] [place] [address] 63171- 0958 Oct, Constipation, unspecified constipation type K59.00 and Mood disorder F39 [facility] [address] [place] [address] 73499 2546 Oct, [facility] [id number] [place] [address] [id number] Sep, [facility] [id number] [place] [address] [id number] Sep, [facility] [id number] [place] [address] [id number] Sep, [facility] [id number] [place] [address] [id number] Sep, [facility] [address] [place] [id number] Sep, Generalized abdominal pain R10.84 [facility] [address], [place] [address]- 2546 Sep, [facility] [address] [place] [id number] Sep, Generalized anxiety disorder F41.1 and Primary insomnia F51.01 [facility] [id number] [id number] Aug, [facility] [id number] [id number] Aug, Generalized anxiety disorder F41.1 [facility] [id number] [place] [address] 80546- 3254 Jul, [facility] [address] [place] [id number] Jul, Obsessive thinking F42.8 [facility] [address] [address] 2945 Jul, Generalized anxiety disorder F41.1 and Irritable bowel syndrome with diarrhea K58.0 [facility] [id number] [place] [address] [id number] Jul, Generalized anxiety disorder F41.1 [facility] [id number] [place] [address] [id number] Jun, Generalized anxiety disorder F41.1 [facility] [id number] [place] [address] 26760- 8458 May, [facility] [address] [place] [id number] May, Generalized anxiety disorder F41.1 ; Irritable bowel syndrome with diarrhea K58.0 and Coarse tremors G25.2 [facility] [address] [place] [address] 32190- 1500 April, [facility] [address] [place] [address] 42024- 2230 April, [facility] [address] [place] [address] 90471- 5796 April, [facility] [address] [place] [address] 11946- 3579 Mar, [facility] [address] [place] [id number] Mar, Severe episode of recurrent major depressive disorder, without psychotic features F33.2 and Pain in left hip M25.552 [facility] [address] [place] [address] 89213- 9158 Mar, [facility] [address] [place] [address] 67917- 1855 Mar, [facility] [id number] [place] [address] 80369- 6990 Mar, [place] [id number] [place] [address] 06315- 8168 Mar, Pain in right hip M25.551 and Self-care deficit in patient living alone R46.89 [facility] [id number] [place] [address] 40575 -1031 Jan, Other chronic pain G89.29 ; Pain in left hip M25.552 and Slow transit constipation K59.01 [place] [id number] [place] [address] 70611- 6776 Jan, [place] [id number] [place] [address] 06360- 9248 Dec, Other depression F32.89 ; Constipation, unspecified constipation type K59.00 and Insomnia, unspecified type G47.00 [place] [id number] [place] [address] 29744- 6668 Nov, Reactive depression F32.9 ; Chronic idiopathic constipation K59.04 ; Generalized anxiety disorder F41.1 ; Coarse tremors G25.2 ; Gastroesophageal reflux disease without esophagitis K21.9 ; Dysthymic disorder F34.1 ; Vitamin deficiency, unspecified E56.9 and Primary insomnia F51.01 [place] [id number] [place] [address] 89791- 5118 Nov, [place] [id number] [place] [address] 38597- 2107 Nov, [place] [id number] [place] [address] 97513- 9797 Nov, [place] [id number] [place] [address] 54151- 7157 Nov, Reactive depression F32.9 ; Essential hypertension I10 ; Generalized anxiety disorder F41.1 ; Atherosclerotic heart disease of [place] 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 ; Pain in right hip M25.551 ; Other chronic pain G89.29 ; Chronic idiopathic constipation K59.04 ; Primary insomnia F51.01 ; Coarse tremors G25.2 ; Gastroesophageal reflux disease without esophagitis K21.9 ; Iron deficiency anemia secondary to inadequate dietary iron intake D50.8 and Vitamin deficiency, unspecified E56.9 [facility] [id number] [place] [address] 04394- 2485 29 Oct, 2016 [facility] [address] 18460- 8681 Oct, [facility] [id number] [place] [address] 00382- 4001 Oct, [place] [id number] [place] [address] 35547- 1640 16 Oct, 2016 Generalized anxiety disorder F41.1 ; Poor appetite R63.0 ; Dehydration E86.0 and Failure to thrive in adult R62.7 [place] [address] 08965- 6594 07 Oct, 2016 Generalized anxiety disorder F41.1 and Failure to thrive in adult R62.7 [place] [id number] [place] [address] 99711- 0129 Oct, [facility] [id number] [place] [address] 61376- 4172 Oct, [facility] [id number] [place] [address] 38624 -6876 Sep, Vaginal discharge N89.8 and Acute cystitis with hematuria N30.01 [facility] [id number] [place] [address] 58151- 0244 Sep, [facility] [id number] [place] [address] 36181- 6565 Sep, [facility] [id number] [place] [address] 10867- 8396 Sep, Dysthymic disorder F34.1 ; Acute vaginitis N76.0 ; Dysuria R30.0 and Vaginal yeast infection B37.3 [place] [id number] [place] [address] 54712- 1028 Aug, [facility] [id number] [place] [address] 67501- 2926 Aug, [facility] [id number] [place] [address] 77545 -4369 Aug, Foul smelling urine R82.90 ; Rapid heart rate R00.0 and Flatulence R14.3 [place] [id number] [place] [address] 83738- 3583 Aug, [place] [id number] [place] [address] 07196- 1570 Jul, Constipation, unspecified constipation type K59.00 ; Weak R53.1 ; Poor appetite R63.0 ; Coronary artery disease involving [place] heart without angina pectoris, unspecified vessel or lesion type I25.10 ; Fatigue, unspecified type R53.83 ; Urinary incontinence, unspecified type R32 and Insomnia, unspecified type G47.00 [place] [id number] [place] [address] 00323- 8735 Jul, [place] [id number] [place] [address] 85395- 0273 Jun, Dysuria R30.0 [place] [id number] [place] [address] 68139- 1221 Jun, [place] [id number] [place] [address] 51459- 2407 Jun, Urinary tract infection, site not specified N39.0 ; Acute vaginitis N76.0 and Diarrhea, unspecified type R19.7 [place] [id number] [place] [address] 43785- 3456 May, [place] [id number] [place] [address] 65933- 3915 April, [facility] [address] [id number] April, Encounter for dental examination Z01.20 [facility] [id number] [place] [address] 40906- 1125 April, [facility] [id number] [place] [address] 34425- 4560 April, Tremor R25.1 and Episodic tension-type headache, not intractable G44.219 [facility] [id number] [place] [address] 46959- 1448 Mar, [facility] [id number] [place] [address] 31350- 9097 Jan, Mood disorder F39 [facility] [address] [place] [address] 87193 -6025 Jan, [facility] [id number] [place] [address] 05904- 6557 Jan, [facility] [id number] [place] [address] 05245- 1407 Jan, [facility] [id number] [place] [address] 89089- 6494 Jan, [facility] [address] [address]- 7802 Jan, [facility] [id number] [place] [address] 19788- 1284 Jan, [facility] [address] [place] [address] 53773 -4361 Dec, Acute diarrhea R19.7 [facility] [id number] [place] [address] 19714- 9244 Dec, [facility] [address] [address]- 4568 Dec, [facility] [id number] [place] [address] 85907- 6642 Dec, [facility] [id number] [place] [address] 38646 -6817 Dec, N&V (nausea and vomiting) R11.2 [facility] [id number] [place] [address] 74493- 9846 Dec, Generalized anxiety disorder F41.1 [facility] [address] 26280- 5805 Dec, Generalized anxiety disorder F41.1 [facility] [address] 40465- 6642 Nov, Post concussion syndrome F07.81 [facility] [address] 89259- 4136 Nov, Generalized anxiety disorder F41.1 [facility] [address] 97588- 9983 Nov, [facility] [address] 36266- 6625 Nov, Generalized anxiety disorder F41.1 [facility] [address] [id number] Oct, Dental caries K02.9 [facility] [id number] [place] [address] 90047- 4759 Oct, [facility] [address] [id number] Oct, Dental examination Z01.20 [facility] [address] [id number] Oct, Encounter for dental examination Z01.20 [facility] [id number] [place] [address] 32744- 1898 09 Oct, 2015 CAD (coronary artery disease) I25.10 [facility] [address] 74998- 7785 Sep, Generalized anxiety disorder F41.1 [facility] [id number] [place] [address] 52189- 4898 Sep, [facility] [address] 41753- 8801 Sep, Rash and other nonspecific skin eruption R21 and Yeast vaginitis B37.3 [facility] [address] 91037- 9102 Sep, Generalized anxiety disorder F41.1 [facility] [address] 35471- 9154 Aug, Insect bites 919.4 and Hemorrhoids 455.6 [facility] [address] 13667- 3898 Aug, Generalized anxiety disorder 300.02 [facility] [address] 46419- 1968 08 Aug, 2015 [facility] [address] 70470- 1797 Aug, [facility] [address] 91471- 1865 Aug, Generalized anxiety disorder 300.02 ; No condition on [place] II V71.09 ; Heart problem 429.9 and Hypertension 401.9 [facility] [id number] [place] [address] 87376- 4837 Aug, [facility] [id number] [place] [address] 25217- 1709 Jul, [facility] [address] 49879- 9043 Jul, [facility] [id number] [place] [address] 70257- 5913 Jul, [facility] [address] 84329- 1897 Jul, [facility] [address] [address]- 1054 Jul, Rash 782.1 [facility] [address] [place] [address] 69402- 5511 Jul, UTI (urinary tract infection) 599.0 [facility] [address], [place] [address]- 0218 Jul, [facility] [id number] [place] [address] 453414- 5315 Jun, Dysthymia 300.4 and Anxiety 300.00 [facility] [id number] [place] [address] 577876- 3878 Jun, 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 [facility] [address] [address]- 4115 May, [facility] [address] [place] [address] 03705- 7181 May, [facility] [address] [address]- 9404 May, Unspecified breast screening V76.10 [facility] [address] [place] [address] [id number] May, Dental examination V72.2 [facility] [address] [address]- 6176 April, [facility] [address] [address]- 4296 April, [facility] [address] [place] [address] [id number] April, Dental examination V72.2 [facility] [address] [place] [address] [id number] April, Dental examination V72.2 [facility] [address] [address]- 8156 Mar, [facility] [place] [facility] [address] [id number] [place] [address]- 6025 13 Mar, 2015 [facility] [place] [facility] [address] [id number] [place] [address]- 2747 25 Jan, 2015 [facility] [place] [facility] [address] [id number] [place] [address]- 8397 25 Jan, 2015 [facility] [place] [facility] [address] [id number] [place] [address]- 3677 18 Jan, 2015 [facility] [place] [facility] [address] [id number] [place] [address]- 0367 18 Jan, 2015 [facility] [place] [facility] [address] [id number] [place] [address]- 2623 16 Jan, 2015 [facility] [place] [facility] [address] [id number] [place] [address]- 8486 16 Jan, 2015 [facility] [place] [facility] [address] [id number] [place] [address]- 0705 13 Jan, 2015 [facility] [place] [facility] [address] [id number] [place] [address]- 7192 13 Jan, 2015 [facility] [place] [facility] [address] [id number] [address]- 9373 11 Jan, 2015 [facility] [place] [facility] [address] [id number] [address]- 0772 11 Jan, 2015 [facility] [place] [facility] [address] [id number][place] [address]- 4388 11 Jan, 2015 [facility] [place] [facility] [address] [id number] [place] [address]- 9294 11 Jan, 2015 [facility] [place] [facility] [address] [id number] [place] [address]- 9445 09 Jan, 2015 [facility] [place] [facility] [address] [id number] 8068 09 Jan, 2015 [facility] [place] [facility] [address] [id number] [address]- 3789 Jan, 2014 [facility] [place] [facility] [address] [id number] [place] [address]- 1286 Jan, 2014 [facility] [place] [facility] [address] [id number] [place] 0786 Jan, 2014 [facility] [place] [facility] [address] [id number] [place] [address]- 5966 Jan, 2014 [facility] [place] [facility] [address] [id number] [place] [address]- 1861 Jan, 2014 [facility] [place] [facility] [address] [id number] [place] [address]- 2386 Jan, 2014 [facility] [place] [facility] [address] [facility] [id number] [place] [address]- 8737 Jan, 2014 [facility] [place] [facility] [address] [facility] [id number] [place] [address]- 1042 Jan, 2014 [facility] [place] [facility] [address] [facility] [id number] [place] [address] Dec, [facility] [place] [facility] [address] [facility] [id number] [place] [address] Dec, [facility] [place] [facility] [address] [id number] [place] [address] Dec, [facility] [place] [facility] [address] [facility] [id number] [place] [address] Dec, [facility] [place] [facility] [address] [id number] [place] [address] Nov, [facility] [place] [facility] [address] [id number] [place] Nov, [facility] [place] [facility] [address] [facility] [id number] [place] [id number] [address] Nov, [facility] [place] [facility] [address] [facility] [id number] [place] [address] Nov, [facility] [place] [facility] [address] [id number] [place] [address] Nov, [facility] [place] [facility] [address] [id number] [place] [address] Nov, [facility] [place] [facility] [address] [id number] [place] [address] Nov, [facility] [place] [facility] [address] [id number] [place] [address] Oct, [facility] [place] [facility] [address] [id number] [place] [address] Oct, [facility] [place] [facility] [address] [id number] [place] [address] Oct, [facility] [place] [facility] [address] [id number] [place] [address] Oct, [facility] [place] [facility] [address] [id number] [place] [address] Oct, [facility] [place] [facility] [address] [id number] [place] [address] Oct, [facility] [place] [facility] [address] [id number], [place] [address] Oct, [facility] [place] [facility] [address] [id number], [place] [address] Oct, [facility] [place] [facility] [address] [id number], [place] [address] Oct, [facility] [place] [facility] [address] [id number] [place] [address] Oct, [facility] [place] [facility] [address] [id number], [place] [address] Oct, [facility] [place] [facility] [address] [id number], [place] [address] Oct, [facility] [place] [facility] [address] [id number], [place] [address] Sep, [facility] [place] [facility] [address] [id number] [place] [address] Sep, [facility] [place] [facility] [address] [id number] [place] [address] Sep, [facility] [place] [facility] [address] [id number] [place] [address] Sep, [facility] [place] [facility] [address] [address] [id number] [place] [address] Jul, [facility] [place] [facility] [address] [id number] [place] [address] Jul, [facility] [place] [facility] [address] [id number] [place] [address] Jul, [facility] [place] [facility] [address] [id number] [place] [address] 1991 Jul, [facility] [place] [facility] [address] [id number] [place] [address] Jun, [facility] [place] [facility] [address] [id number] [place] [address] 9[address] Jun, [facility] [place] [facility] [address] [id number] [place] [address] 1673 Jun, [facility] [place] [facility] [address] [id number] [place] [address] Jun, [facility] [place] [facility] [address] [id number] [place] [address] 7026 May, [facility] [place] [facility] [address] [id number] [place] [address] 2914 May, [facility] [place] [facility] [address] [id number] [place] [address] April, [facility] [place] [facility] [address] [id number] [place] [address] 113[address] April, [facility] [place] [facility] [address] [id number] [place] [address] 8676 April, [facility] [place] [facility] [address] [id number] [place] [address] 1081 April, [facility] [place] [facility] [address] [id number] [place] [address] 6116 April, [facility] [place] [facility] [address] [id number] [place] [address] 3860 April, [facility] [place] [facility] [address] [id number] [place] [address] 16[address] April, [facility] [place] [facility] [address] [id number] [place] [address] 4[address] April, [facility] [place] [facility] [address] [id number] [place] [address] 4[address] April, [facility] [place] [facility] [address] [id number] [place] [address] 8668 Mar, [facility] [place] [facility] [address] [id number] [place] [address] Mar, [facility] [place] [facility] [address] [id number] [place] [address] Mar, [facility] [place] [facility] [address] [id number] [place] [address] 8417 Mar, [facility] [place] [facility] [address] [id number] [place] [address]156 Jan, [facility] [place] [facility] [address] [id number] [place] [address] 3325 Jan, [facility] [place] [facility] [address] [id number] [place] [address]- 8937 Jan, [facility] [place] [facility] [address] [id number] [place] [address]- 8936 Jan, [facility] [place] [facility] [address] [id number] [place] [address] 37[address] Jan, [facility] [place] [facility] [address] [id number] [place] [address]- 0[address] Jan, [facility] [place] [facility] [address] [id number] [place] [address]- 3165 Jan, [facility] [place] [facility] [address] [id number] [place] [address] 3614 Jan, [facility] [place] [facility] [address] [id number] [place] [address]- 7895 Jan, [facility] [place] [facility] [address] [id number] [place] [address]- 8433 Jan, [facility] [place] [facility] [address] [id number] [place] [address]- 4917 Jan, [facility] [place] [facility] [address] [id number] [place] [address]- 8104 Jan, [facility] [place] [facility] [address] [id number] [place] [address] 8020 Dec, [facility] [place] [facility] [address] [id number] [place] [address] 1243 Dec, [facility] [place] [facility] [address] [id number] [place] [address]- 3541 Dec, [facility] [place] [facility] [address] [id number] [place] [address]551 Dec, [facility] [place] [facility] [address] [id number] [place] [address] 4706 Nov, [facility] [place] [facility] [address] [id number] [place] [address] 3949 Nov, [facility] [place] [facility] [address] [id number] [place] [address] 9806 Nov, [facility] [place] [facility] [address] [id number] [place] [address] 0203 Nov, [facility] [place] [facility] [address] [id number] [place] [address]- [address]234 07 Oct, 2013 [facility] [address] [id number] [place] [address] 8744 Oct, [facility] [place] [facility] [address] [id number] [place] [address] 2968 Sep, [facility] [address] [id number] [place] [address] 8941 Sep, [facility] [place] [facility] [address] [id number] [place] [address]- [address] Jul, [facility] [address] [id number] [place] [address] 8786 Jul, [facility] [address] [id number] [place] [address] Jun, [facility] [place] [facility] [address] [id number] [place] [address]- 8704 Jun, [facility] [address] [id number] [place] [address] 5848 Jun, [facility] [address] [id number] [place] [address]- 8940 May, [facility] [address] [id number] [place] [address]- 3[address] May, [facility] [place] [facility] [address] [id number] [place] [address]- 9471 May, [facility] [place] [facility] [address] [id number] [place] [address]- 6959 May, [facility] [place] [facility] [address] [id number] [place] [address]- 0071 May, [facility] [place] [facility] [address] [id number] [place] [address] 0411 April, [facility] [place] [facility] [address] [id number] [place] [address] April, [facility] [address] [id number] [place] [address]- 1764 April, [facility] [address] [id number] [place] [address] 1233 April, [facility] [address] [id number] [place] [address]- 6107 April, [facility] [place] [facility] [address] [id number] [place] [address]- 0689 April, [facility] [address] [id number] [place] [address] 1558 Mar, [facility] [place] [facility] [address] [id number] [place] [address] 7430 Mar, [facility] [address] [id number] [place] [address]- 2586 Jan, [facility] [address] [id number] [place] [address]- 5387 Jan, [facility] [address] [id number] [place] [address]- 2588 Jan, [facility] [address] [id number] [place] [address]- 2513 Jan, [facility] [place] [facility] [address] [id number] [place] [address]- 9389 Jan, [facility] [place] [facility] [address] [id number], [place] [address] 4[address] Jan, [facility] [place] [facility] [address] [id number] [place] [address]- 0362 Jan, [facility] [place] [facility] [address] [id number] [place] [address]- 1465 Jan, [facility] [place] [facility] [address] [id number] [place] [address]- 3023 Jan, [facility] [place] [facility] [address] [id number] [place] [address]- 8336 Jan, [facility] [address] [id number] [place] [address]- 5046 Jan, [facility] [address] [id number] [place] [address]- 5966 Dec, [facility] [address] [id number] [place] [address]- 1618 Nov, [facility] [address] [id number] [place] [address]- 7402 Nov, [facility] [address] [id number] [place] [address]- 2752 Nov, [facility] [address] [id number] [place] [address]- 8341 Nov, [facility] [address] [id number] [place] [address]- 6068 Nov, [facility] [address] [id number] [place] [address]- 2589 Nov, [facility] [address] [id number] [place] [address]- 0425 Nov, [facility] [address] [id number] [place] [address]- 7595 Nov, [facility] [address] [id number] [place] [address] 2546 Nov, [facility] [address] [id number] [place] [address]- 2541 Nov, [facility] [address] [id number] [place] [address]- 5666 Nov, [facility] [address] [id number] [place] [address]- 2546 Nov, [facility] [address] [id number] [place] [address]- 1284 Nov, [facility] [place] [facility] [address] [id number] [place] [address]- 5705 Oct, [facility] [place] [facility] [address] [id number] [place] [address]- 0886 Oct, [facility] [place] [facility] [address] [id number] [place] [address]- 1986 Oct, [facility] [place] [facility] [address] [id number] [place] [address]- 6496 Sep, [facility] [place] [facility] [address] [id number] [place] [address]- 5168 Sep, [facility] [place] [facility] [address] [id number] [place] [address]- 0786 Sep, [facility] [place] [facility] [address] [facility] [id number] [place] [address]- 2627 Sep, [facility] [place] [facility] [address] [id number][place] [address]- 5236 Aug, [facility] [place] [facility] [address] [id number] [place] [address]- 6028 Aug, [facility] [place] [facility] [address] [facility] [id number], [place] [address]- 6176 Jul, [facility] [place] [facility] [address] [facility] [id number], [place] [address]- 5885 May, [facility] [place] [facility] [address] [id number][place] [address]- 4680 May, [facility] [place] [facility] [address] [id number], [place] [address]- 4976 May, [facility] [place] [facility] [address] [id number], [place] [address]- 3266 April, [facility] [place] [facility] [address] [facility] [id number], [place] [address]- 1025 Mar, [facility] [place] [facility] [address] [id number], [place] [address]- 7553 10 Mar, 2012 [facility] [address] [id number] [place] [address]- 5525 Mar, [facility] [place] [facility] [address] [id number] [place] [address]- 2177 Jan, [facility] [place] [facility] [address] [id number] [place] [address]- 3386 Jan, [facility] [place] [facility] [address] [id number] [place] [address]- 9598 Jan, [facility] [address] [id number] [place] [address], [place] [address]- 3030 Dec, [facility] [place] [facility] [address] [id number] [place] [address]- 7064 Dec, [facility] [address] [facility] [id number] [place] [address]- 8468 Dec, [facility] [place] [facility] [address] [facility] [id number] [place] [address]- 3554 Dec, [facility] [address] [facility] [id number] [place] [address]- 7591 Nov, [facility] [place] [facility] [address] [facility] [id number] [place] [address]- 4193 Nov, [facility] [place] [facility] [address] [facility] [id number], [place] [address]- 5665 Nov, [facility] [place] [facility] [address] [id number], [place] [address]- 6025 Oct, [facility] [place] [facility] [address] [id number] [place] [address]- 5484 31 Sep, 2011 [facility] [place] [facility] [address] [facility] [id number] [place] [address]- 9997 26 Sep, 2011 [facility] [place] [facility] [address] [facility] [id number] [place] [address]- 9886 13 Sep, 2011 [facility] [place] [facility] [address] [id number] [place] [address]- 4676 15 Nov, 2010 [facility] [place] [facility] [address] [id number] [place] [address]- 5396 23 Oct, 2010 [facility] [place] [facility] [address] [id number] [place] [address] 2546 19 Oct, 2010 [facility] [place] [facility] [address] [id number] [place] [address] 2546 18 Oct, 2010 [facility] [place] [facility] [address] [id number] [place] [address] 2548 16 Oct, 2010 [facility] [place] [facility] [address] [id number] [place] [address]- 4656 11 Sep, 2010 [facility] [place] [facility] [address] [facility] [id number] [place] [address]- 5468 April, [facility] [place] [facility] [address] [id number] [place] [address]- 4879 29 Nov, 2009 [facility] [place] [facility] [address] [id number] [place] [address]- 2230 24 Nov, 2009 [facility] [place] [facility] [address] [id number] [place] [address]- 2917 22 Nov, 2009 [facility] [place] [facility] [address] [facility] [id number] [place] [address]- 4848 10 Nov, 2009 [facility] [place] [facility] [address] [id number] [place] [address]- 0221 10 Nov, 2009 [facility] [place] [facility] [address] [id number] [place] [address] 2543 19 Oct, 2009 [facility] [place] [facility] [address] [id number] [place] [address] 2546 02 Oct, 2009 [facility] [place] [facility] [address] [id number] [place] [address] 2546 13 Sep, 2009 [facility] [place] [facility] [address] [id number] [place] [address] 2548 Jan, IMMUNIZATIONS No Known Immunizations SOCIAL HISTORY [...] thoughts Medical History Depression [facility] Started on Eliquis Medical History Anemia 04/2016 postsurgical hip fx Surgical History right hip replacement w/ Dr. Bruce 2011 Surgical History triple bypass surgery 2003 Surgical History S/P left hip IM Nail (Intertrechanteric hip fx) 04/28/16 Hospitalization History surgeries Hospitalization History Hypertension Hospitalization History ER for a concussion 11/24/15 Hospitalization History Intertrechanteric hip fx 04/27/16 Hospitalization History [facility] ([facility]patient [facility]) Hx of 3 inpatient psych treatments in past in [place] oct 2016 [facility] 2016
--- OUTSIDE RECORDS SUMMARY | 2018-08-20 12:46 | XMS REPORT ---
Author Author WOLF AGUIRRE [facility] Address [address] [place] [address] Care Team Providers Care Assistant Offset Press Operator Name Role Phone WOLF AGUIRRE Unavailable PROBLEMS Type Condition ICD9-CM Code [id number] Code Onset Dates Condition Status SNOMED Code Problem Sundowning F05 Active 450188247 Problem Constipation, unspecified constipation type K59.00 Active 35416492 Problem Reactive depression F32.9 Active 38418453 Problem Vascular dementia with behavior disturbance F01.51 Active 925296323010646 Problem Insomnia, unspecified type G47.00 Active 697875979 Problem Generalized anxiety disorder F41.1 Active 52669760 Problem Other chronic pain G89.29 Active 01683930 Problem Severe episode of recurrent major depressive disorder, without psychotic features F33.2 Active 46074282 Problem Slow transit constipation K59.01 Active 81269941 Problem 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 Active 716528072 Problem Obsessive thinking F42.8 Active 27175098 Problem Failure to thrive in adult R62.7 Active 933734127 Problem Dysthymic disorder F34.1 Active 54235303 Problem Hypertension I10 Active 52279265 Problem Mood disorder F39 Active 53345995 Problem Irritable bowel syndrome with diarrhea K58.0 Active 622751752 Problem Oropharyngeal dysphagia R13.12 Active 94085704 Problem 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 Active 87155841 Problem Other chronic pain G89.29 Active 39910007 Problem Primary insomnia F51.01 Active 2674352 Problem Poor appetite R63.0 Active 53753326 Problem Atherosclerotic heart disease of [place] 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 Active 915589267305046 Problem Iron deficiency anemia secondary to inadequate dietary iron intake D50.8 Active 558105379 Problem Coarse tremors G25.2 Active 18600321 Problem Gastroesophageal reflux disease without esophagitis K21.9 Active 127157362 Problem Essential hypertension I10 Active 43735399 ALLERGIES No Information ENCOUNTERS Encounter Location Date Diagnosis [facility] [id number] [place] [address] 64995- 4561 April, [facility] [address] [place] [id number] April, Generalized anxiety disorder F41.1 ; Obsessive thinking F42.8 and Insomnia , unspecified type G47.00 [facility] [id number] [place] [address] 11804- 4598 April, [facility] [id number] [place] [address] 91887- 2931 April, Rash of face R21 [facility] [address] 61807- 8353 Mar, [facility] [id number] [place] [address] 14896- 3655 Mar, [facility] [id number] [place] [address] 49305- 6650 Mar, [facility] [id number] [place] [address] 53273- 3149 Jan, [facility] [id number] [place] [address] 13612- 2003 Jan, [facility] [address] [place] [id number] Jan, Constipation, unspecified constipation type K59.00 and Other chronic pain G89.29 [facility] [id number] [place] [address] 63907- 3964 Jan, [facility] [address] [place] [id number] Jan, Obsessive thinking F42.8 and Coarse tremors G25.2 [facility] [id number] [place] [address] [id number] Jan, [facility] [id number] [place] [address] [id number] Jan, [facility] [address] [place] [id number] Jan, Generalized anxiety disorder F41.1 ; Obsessive thinking F42.8 ; Callus of foot L84 and 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 [facility] [id number] [place] [address] 55192- 8107 Dec, Generalized anxiety disorder F41.1 and Severe episode of recurrent major depressive disorder, without psychotic features F33.2 [facility] [id number] [place] [address] 96170- 0888 Nov, [facility] [address] 52320- 4329 Nov, [facility] [address] [id number] Nov, Oropharyngeal dysphagia R13.12 ; Generalized anxiety disorder F41.1 and 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 [facility] [id number] [place] [address] 64175- 9426 Nov, [facility] [id number] [place] [address] [id number] Nov, [facility] [id number] [place] [address] 17288- 4189 Nov, [facility] [id number] [place] [address] 87647- 4992 Nov, [facility] [id number] [place] [address] 93500- 2184 Oct, Constipation, unspecified constipation type K59.00 and Mood disorder F39 [facility] [id number] [place] [address] 583206- 4651 Oct, [facility] [id number] [place] [address] [id number] Sep, [facility] [id number] [place] [address] [id number] Sep, [facility] [id number] [id number] Sep, [facility] [id number] [id number] Sep, [facility] [address] [id number] Sep, Generalized abdominal pain R10.84 [facility] [address], [place] [address] 2546 Sep, [facility] [id number] [place] [address] [id number] Sep, Generalized anxiety disorder F41.1 and Primary insomnia F51.01 [facility] [id number] [place] [address] [id number] Aug, [facility] [id number] [place] [address] [id number] Aug, Generalized anxiety disorder F41.1 [facility] [address] [place] [address] 72520- 9692 Jul, [facility] [address] [id number] Jul, Obsessive thinking F42.8 [facility] [address] 80[address] Jul, Generalized anxiety disorder F41.1 and Irritable bowel syndrome with diarrhea K58.0 [facility] [id number] [id number] Jul, Generalized anxiety disorder F41.1 [facility] [id number] [id number] Jun, Generalized anxiety disorder F41.1 [facility] [address] [id number] [address] 3036 May, [facility] [address] [id number] May, Generalized anxiety disorder F41.1 ; Irritable bowel syndrome with diarrhea K58.0 and Coarse tremors G25.2 [facility] [address], [place] [address] 0862 April, [facility] [id number] [place] [address] 58384- 0627 April, [facility] [id number] [address] 2092 April, [facility] [id number] [place] [address] 71500- 0801 Mar, [facility] [address] [place] [id number] Mar, Severe episode of recurrent major depressive disorder, without psychotic features F33.2 and Pain in left hip M25.552 [facility] [id number] [place] [address] 00754- 7690 Mar, [facility] [id number] [place] [address] 00635- 1366 Mar, [facility] [id number] [place] [address] 23506- 9940 Mar, [facility] [id number] [place] [address] 90461- 7772 Mar, Pain in right hip M25.551 and Self-care deficit in patient living alone R46.89 [facility] [address], [place] [address] Jan, Other chronic pain G89.29 ; Pain in left hip M25.552 and Slow transit constipation K59.01 [facility] [address], [place] [address]- 7983 Jan, [facility] [id number] [place] [address] 85648- 4455 Dec, Other depression F32.89 ; Constipation, unspecified constipation type K59.00 and Insomnia, unspecified type G47.00 [facility] [id number] [place] [address] 75493- 9409 Nov, Reactive depression F32.9 ; Chronic idiopathic constipation K59.04 ; Generalized anxiety disorder F41.1 ; Coarse tremors G25.2 ; Gastroesophageal reflux disease without esophagitis K21.9 ; Dysthymic disorder F34.1 ; Vitamin deficiency, unspecified E56.9 and Primary insomnia F51.01 [facility] [id number] [place] [address] 47060- 9677 Nov, [facility] [address] 77074- 1300 Nov, [facility] [id number] [place] [address] 55231- 0949 Nov, [facility] [id number] [place] [address] 36010- 4254 Nov, Reactive depression F32.9 ; Essential hypertension I10 ; Generalized anxiety disorder F41.1 ; Atherosclerotic heart disease of [place] 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 ; Pain in right hip M25.551 ; Other chronic pain G89.29 ; Chronic idiopathic constipation K59.04 ; Primary insomnia F51.01 ; Coarse tremors G25.2 ; Gastroesophageal reflux disease without esophagitis K21.9 ; Iron deficiency anemia secondary to inadequate dietary iron intake D50.8 and Vitamin deficiency, unspecified E56.9 [facility] [id number] [place] [address] 02538- 3747 Oct, [facility] [id number] [place] [address] 33368- 5522 Oct, [facility] [id number] [place] [address] 11452- 4366 Oct, [address] 04303- 1934 Oct, Generalized anxiety disorder F41.1 ; Poor appetite R63.0 ; Dehydration E86.0 and Failure to thrive in adult R62.7 [facility] [id number] [place] [address] 03286- 2660 Oct, Generalized anxiety disorder F41.1 and Failure to thrive in adult R62.7 [facility] [address] [place] [address] 15922- 1993 Oct, [facility] [id number] [place] [address] 04637- 4375 Oct, [facility] [id number] [place] [address] 40861 -5138 Sep, Vaginal discharge N89.8 and Acute cystitis with hematuria N30.01 [facility] [id number] [place] [address] 80234- 5540 Sep, [facility] [id number] [place] [address] 24573- 0236 Sep, [facility] [id number] [place] [address] 83270- 8232 Sep, Dysthymic disorder F34.1 ; Acute vaginitis N76.0 ; Dysuria R30.0 and Vaginal yeast infection B37.3 [facility] [id number] [place] [address] 64728- 3293 Aug, [facility] [id number] [place] [address] 12560- 2486 Aug, [facility] [address] [place] [address] 38421 -6039 Aug, Foul smelling urine R82.90 ; Rapid heart rate R00.0 and Flatulence R14.3 [facility] [address] [place] [address] 80363- 6727 Aug, [facility] [id number] [place] [address] 31279- 3091 Jul, Constipation, unspecified constipation type K59.00 ; Weak R53.1 ; Poor appetite R63.0 ; Coronary artery disease involving [place] heart without angina pectoris, unspecified vessel or lesion type I25.10 ; Fatigue, unspecified type R53.83 ; Urinary incontinence, unspecified type R32 and Insomnia, unspecified type G47.00 [facility] [id number] [place] [address] 59799- 3496 Jul, [facility] [id number] [place] [address] 42929- 7660 Jun, Dysuria R30.0 [facility] [address] 69692- 4533 Jun, [facility] [id number] [place] [address] 72727- 6839 Jun, Urinary tract infection, site not specified N39.0 ; Acute vaginitis N76.0 and Diarrhea, unspecified type R19.7 [facility] [id number] [place] [address] 23092- 3219 May, [facility] [id number] [place] [address] 34003- 9302 April, [facility] [address] [id number] April, Encounter for dental examination Z01.20 [facility] [id number] [place] [address] 41027- 0908 April, [facility] [id number] [place] [address] 14127- 1974 April, Tremor R25.1 and Episodic tension-type headache, not intractable G44.219 [facility] [id number] [place] [address] 52171- 0212 Mar, [facility] [id number] [place] [address] 24156- 3198 Jan, Mood disorder F39 [facility] [id number] [place] [address] 95195 -7888 Jan, [facility] [id number] [place] [address] 23885- 1921 Jan, [facility] [address], [place] [address]- 7200 Jan, [facility] [id number] [place] [address] 37420- 1246 Jan, [facility] [address] [place] [address] 23092- 0943 Jan, [facility] [id number] [place] [address] 59054- 9436 Jan, [facility] [id number] [place] [address] 50261 -5304 Dec, Acute diarrhea R19.7 [facility] [id number] [place] [address] 68732- 6306 Dec, [facility] [id number] [place] [address] 68644- 5970 Dec, [facility] [id number] [place] [address] 84309- 9438 Dec, [facility] [id number] [place] [address] 76386 -0374 Dec, N&V (nausea and vomiting) R11.2 [facility] [address] [place] [address] 89864- 5669 Dec, Generalized anxiety disorder F41.1 [facility] [id number] [place] [address] 64863- 1173 Dec, Generalized anxiety disorder F41.1 [facility] [address] [place] [address] 39999- 3153 Nov, Post concussion syndrome F07.81 [facility] [id number] [place] [address] 78817- 8968 Nov, Generalized anxiety disorder F41.1 [facility] [address] [place] [address] 41629- 1983 Nov, [facility] [address] [place] [address] 82006- 5969 Nov, Generalized anxiety disorder F41.1 [facility] [id number] [place] [address] [id number] Oct, Dental caries K02.9 [facility] [id number] [place] [address] 06098- 8461 Oct, [facility] [id number] [place] [address] [id number] Oct, Dental examination Z01.20 [facility] [address] [id number] 10 Oct, 2015 Encounter for dental examination Z01.20 [facility] [id number] [place] [address] 54934- 3217 Oct, CAD (coronary artery disease) I25.10 [facility] [id number] [place] [address] 04460- 5267 Sep, Generalized anxiety disorder F41.1 [facility] [id number] [place] [address] 58516- 1434 Sep, [facility] [id number] [place] [address] 37634- 0322 Sep, Rash and other nonspecific skin eruption R21 and Yeast vaginitis B37.3 [facility] [id number] [place] [address] 52478- 8272 Sep, Generalized anxiety disorder F41.1 [facility] [id number] [place] [address] 90037- 1226 Aug, Insect bites 919.4 and Hemorrhoids 455.6 [facility] [address] [place] [address] 48826- 5704 Aug, Generalized anxiety disorder 300.02 [facility] [id number] [place] [address] 65533- 4733 08 Aug, 2015 [facility] [address] [place] [address] 86856- 2927 Aug, [facility] [id number] [place] [address] 76516- 4444 Aug, Generalized anxiety disorder 300.02 ; No condition on Brod[place] II V71.09 ; Heart problem 429.9 and Hypertension 401.9 [facility] [id number] [place] [address] 98319- 2733 Aug, [facility] [id number] [place] [address] 55965- 8171 Jul, [facility] [id number] [place] [address] 86075- 3068 Jul, [facility] [id number] [place] [address] 30665- 5061 Jul, [facility] [id number] [place] [address] 58597- 9521 Jul, [facility] [id number] [place] [address] 62357- 2214 Jul, Rash 782.1 [facility] [id number] [place] [address] 99934- 6318 Jul, UTI (urinary tract infection) 599.0 [facility] [id number] [place] [address] 64896- 5020 Jul, [facility] [id number] [place] [address] 38971- 0845 Jun, Dysthymia 300.4 and Anxiety 300.00 [facility] [id number] [place] [address] 08869- 1456 Jun, 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 [facility] [address], [place] [address]- 0726 May, [facility] [id number] [place] [address] 56878- 8016 May, [facility] [address] [id number], [place] [address]- 2546 May, Unspecified breast screening V76.10 [facility] [address] [id number] [id number] May, Dental examination V72.2 [facility] [address] [id number], [place] [address]- 2546 April, [facility] [address] [id number], [place] [address]- 2546 April, [facility] [address] [id number] [id number] April, Dental examination V72.2 [facility] [id number] [id number] April, Dental examination V72.2 [facility] [address] [id number], [place] [address]- 2546 Mar, [facility] [address] [id number], [place] [address]- 2546 Mar, [facility] [address] [id number], [place] [address]- 2546 Jan, [facility] [address] [facility] [id number], [place] [address] 2546 25 Jan, 2015 [facility] [address] [id number] [address]- 2546 18 Jan, 2015 [facility] [address] [id number], [place] [address]- 2546 18 Jan, 2015 [facility] [address] [id number], [place] [address]- 2546 16 Jan, 2015 [facility] [address] [facility] [id number], [place] [address]- 2546 16 Jan, 2015 [facility] [address] [facility] [id number], [place] [address]- 6142 13 Jan, 2015 [facility] [place] [facility] [address] [id number] [place] [address]- 6602 13 Jan, 2015 [facility] [place] [facility] [address] [id number] [place] [address]- 4487 Jan, [facility] [place] [facility] [address] [facility] [id number] [place] [address]- 9994 Jan, [facility] [place] [facility] [address] [id number] [place] [address]- 0980 Jan, [facility] [place] [facility] [address] [id number] [place] [address]- 8854 Jan, [facility] [place] [facility] [address] [id number] [place] [address]- 6666 Jan, [facility] [place] [facility] [address] [facility] [id number] [place] [address]- 2454 Jan, [facility] [place] [facility] [address] [facility] [id number] [place] [address]- 0479 Jan, 2014 [facility] [place] [facility] [address] [facility] [id number] [place] [address]- 0369 Jan, 2014 [facility] [place] [facility] [address] [facility] [id number] [place] [address]- 9980 Jan, 2014 [facility] [place] [facility] [address] [facility] [id number] [place] [address]- 2742 Jan, 2014 [facility] [place] [facility] [address] [facility] [id number] [place] [address] Jan, 2014 [facility] [place] [facility] [address] [facility] [id number] [place] [address] Jan, 2014 [facility] [place] [facility] [address] [facility] [id number] [place] [address] Jan, 2014 [facility] [place] [facility] [address] [facility] [id number] [place] [address] Jan, 2014 [facility] [place] [facility] [address] [id number] [place] [address] Dec, [facility] [place] [facility] [address] [id number] [place] [address] Dec, [facility] [place] [facility] [address] [id number] [place] [address] Dec, [facility] [place] [facility] [address] [id number] [place] [address] Dec, [facility] [place] [facility] [address] [id number] [place] [address] Nov, [facility] [place] [facility] [address] [id number] [place] [address] Nov, [facility] [place] [facility] [address] [id number] [place] [address] Nov, [facility] [place] [facility] [address] [id number] [place] [address] Nov, [facility] [place] [facility] [address] [id number] [place] [address] Nov, [facility] [place] [facility] [address] [id number] [place] [address] Nov, [facility] [place] [facility] [address] [id number] [place] [address] Nov, [facility] [place] [facility] [address] [id number] [place] [address] Oct, [facility] [place] [facility] [address] [id number] [place] [address] Oct, [facility] [place] [facility] [address] [id number] [place] [address] Oct, [facility] [place] [facility] [address] [id number] [place] [address] Oct, [facility] [place] [facility] [address] [id number] [place] [address] Oct, [facility] [place] [facility] [address] [id number] [place] [address] Oct, [facility] [place] [facility] [address] [id number] [place] [address] Oct, [facility] [place] [facility] [address] [id number] [place] [address] Oct, [facility] [place] [facility] [address] [id number] [place] [address] Oct, [facility] [place] [facility] [address] [id number] [place] [address] Oct, [facility] [place] [facility] [address] [id number] [place] [address] Oct, [facility] [place] [facility] [address] [id number] [place] [address] Oct, [facility] [place] [facility] [address] [id number] [place] [address] Sep, [facility] [place] [facility] [address] [id number] [place] [address] 16[address] Sep, [facility] [place] [facility] [address] [id number] [place] [address] Sep, [facility] [place] [facility] [address] [id number] [address] Sep, [facility] [place] [facility] [address] [id number], [place] [address] Jul, [facility] [place] [facility] [address] [id number] [place] [address] Jul, [facility] [place] [facility] [address] [id number] [place] [address]- [address] Jul, [facility] [place] [facility] [address] [id number] [place] [address] 478[address] Jul, [facility] [place] [facility] [address] [id number] [place] [address] 39[address] Jun, [facility] [place] [facility] [address] [id number] [place] [address] 9[address] Jun, [facility] [place] [facility] [address] [id number] [place] [address] Jun, [facility] [place] [facility] [address] [id number] [place] [address]- 488[address] Jun, [facility] [place] [facility] [address] [id number] [place] [address] 8[address] May, [facility] [place] [facility] [address] [id number] [place] [address] 2645 May, [facility] [place] [facility] [address] [id number] [place] [address]- 0446 April, [facility] [place] [facility] [address] [id number] [place] [address]- 2887 April, [facility] [place] [facility] [address] [id number] [place] [address]- 5[address] April, [facility] [place] [facility] [address] [id number] [place] [address]- 8476 April, [facility] [place] [facility] [address] [id number] [place] [address]- 4[address] April, [facility] [place] [facility] [address] [id number] [place] [address]- 6663 April, [facility] [place] [facility] [address] [id number] [place] [address]- 4763 April, [facility] [place] [facility] [address] [id number] [place] [address] 0849 April, [facility] [place] [facility] [address] [id number] [id number] [address] April, [facility] [place] [facility] [address] [id number] [place] [address]- 6240 Mar, [facility] [place] [facility] [address] [id number] [place] [address]- 0033 Mar, [facility] [place] [facility] [address] [id number] [place] [address]- 8719 Mar, [facility] [place] [facility] [address] [id number] [place] [address] 8[address] Mar, [facility] [place] [facility] [address] [id number] [place] [address]- 9501 Jan, [facility] [place] [facility] [address] [id number] [place] [address]- 4657 Jan, [facility] [place] [facility] [address] [id number] [place] [address]- 1693 Jan, [facility] [place] [facility] [address] [id number] [place] [address]- 4399 Jan, [facility] [place] [facility] [address] [id number] [place] [address]- 7437 Jan, [facility] [place] [facility] [address] [id number] [place] [address]- 5637 Jan, [facility] [place] [facility] [address] [id number] [place] [address] 1880 Jan, [facility] [place] [facility] [address] [id number] [place] [address]- 0643 Jan, [facility] [place] [facility] [address] [id number] [place] [address]- 4933 Jan, [facility] [place] [facility] [address] [id number] [place] [address]- 8794 Jan, [facility] [place] [facility] [address] [id number] [place] [address]- 5884 Jan, [facility] [place] [facility] [address] [id number] [place] [address]- 6203 Jan, [facility] [place] [facility] [address] [id number] [place] [address]- 2239 Dec, [facility] [place] [facility] [address] [id number] [place] [address]- 8454 Dec, [facility] [place] [facility] [address] [id number] [place] [address]- 8186 Dec, [facility] [place] [facility] [address] [id number] [place] [address]- 2674 Dec, [facility] [place] [facility] [address] [id number] [place] [address]- 9213 Nov, [facility] [place] [facility] [address] [id number] [place] [address]- 8728 Nov, [facility] [place] [facility] [address] [id number] [place] [address]- 1099 Nov, [facility] [place] [facility] [address] [facility] [id number] [place] [address]- 2974 Nov, [facility] [place] [facility] [address] [id number] [place] [address]- 7354 Oct, [facility] [place] [facility] [address] [facility] [id number] [place] [address]- 9880 Oct, [facility] [place] [facility] [address] [facility] [id number] [place] [address]- 6351 Sep, [facility] [place] [facility] [address] [id number] [place] [address]- 0614 Sep, [facility] [place] [facility] [address] [id number] [place] [address]- 2803 Jul, [facility] [place] [facility] [address] [id number] [place] [address]- 7965 Jul, [facility] [place] [facility] [address] [id number] [id number] [address] Jun, [facility] [place] [facility] [address] [facility] [id number] [place] [address]- 1466 Jun, [facility] [place] [facility] [address] [id number] [place] [address]- 4052 Jun, [facility] [address] [id number] [place] [address]- 1123 May, [facility] [place] [facility] [address] [id number] [place] [address]- 4956 May, [facility] [address] [id number] [place] [address]- 8177 May, [facility] [place] [facility] [address] [id number] [place] [address]- 4495 May, [facility] [address] [id number] [place] [address]- 0103 May, [facility] [place] [facility] [address] [id number] [place] [address] 1645 April, [facility] [address] [id number] [place] [address]- 4921 April, [facility] [address] [id number] [place] [address]- 8140 April, [facility] [address] [id number] [place] [address]- 0716 April, [facility] [address] [id number] [place] [address]- 3966 April, [facility] [place] [facility] [address] [id number] [place] [address]- 4866 April, [facility] [place] [facility] [address] [id number] [place] [address]- 1321 Mar, [facility] [place] [facility] [address] [id number] [place] [address]- 4187 Mar, [facility] [place] [facility] [address] [id number] [place] [address]- 2146 Jan, [facility] [place] [facility] [address] [id number] [place] [address]- 8130 Jan, [facility] [address] [id number] [place] [address]- 4576 Jan, [facility] [place] [facility] [address] [id number] [place] [address]- 9586 Jan, [facility] [place] [facility] [address] [id number] [place] [address]- 7295 Jan, [facility] [place] [facility] [address] [id number] [place] [address]- 4789 Jan, [facility] [place] [facility] [address] [id number] [place] [address]- 1412 Jan, [facility] [place] [facility] [address] [id number] [place] [address]- 2654 Jan, [facility] [place] [facility] [address] [id number] [place] [address]- 7810 Jan, [facility] [place] [facility] [address] [id number] [place] [address]- 1620 Jan, [facility] [place] [facility] [address] [id number] [place] [address]- 1372 Jan, [facility] [place] [facility] [address] [id number] [place] [address]- 4674 Dec, [facility] [place] [facility] [address] [id number] [place] [address]- 4711 Nov, [facility] [place] [facility] [address] [id number] [place] [address]- 8071 Nov, [facility] [place] [facility] [address] [id number] [place] [address]- 7793 Nov, [facility] [place] [facility] [address] [id number] [place] [address]- 9420 Nov, [facility] [place] [facility] [address] [id number] [place] [address]- 0681 Nov, [facility] [place] [facility] [address] [id number] [place] [address]- 4785 20 Nov, 2012 [facility] [place] [facility] [address] [id number] [id number] [address]72 20 Nov, 2012 [facility] [place] [facility] [address] [id number] [place] [address] Nov, [facility] [place] [facility] [address] [id number] [place] [address]- 2932 Nov, [facility] [place] [facility] [address] [id number] [place] [address] 18 Nov, 2012 [facility] [place] [facility] [address] [id number] [place] [address] Nov, [facility] [place] [facility] [address] [id number] [place] [address]- 5979 Nov, [facility] [place] [facility] [address] [id number] [place] [address]- 5748 Nov, [facility] [place] [facility] [address] [id number] [place] [address]- 3278 Oct, [facility] [place] [facility] [address] [id number] [place] [address]- 0277 Oct, [facility] [place] [facility] [address] [facility] [id number] [place] [address]- 6772 Oct, [facility] [place] [facility] [address] [id number] [place] [address]- 9610 Sep, [facility] [place] [facility] [address] [id number] [place] [address]- 9587 Sep, [facility] [place] [facility] [address] [id number] [place] [address]- 8493 Sep, [facility] [place] [facility] [address] [id number] [place] [address]- 3816 Sep, [facility] [place] [facility] [address] [id number] [place] [address]- 2268 Aug, [facility] [place] [facility] [address] [id number] [place] [address]- 1335 20 Aug, 2012 [facility] [place] [facility] [address] [id number] [place] [address]- 5312 24 Jul, 2012 [facility] [place] [facility] [address] [id number] [place] [address]- 0006 May, [facility] [place] [facility] [address] [id number] [place] [address]- 5151 May, [facility] [place] [facility] [address] [id number] [place] [address]- 9101 May, [facility] [place] [facility] [address] [id number] [place] [address]- 8030 April, [facility] [place] [facility] [address] [id number] [place] [address]- 1749 Mar, [facility] [place] [facility] [address] [id number] [place] [address]- 4771 Mar, [facility] [place] [facility] [address] [id number] [place] [address]- 3731 Mar, [facility] [place] [facility] [address] [id number] [place] [address]- 4163 Jan, [facility] [place] [facility] [address] [id number] [place] [address]- 9994 Jan, [facility] [place] [facility] [address] [id number] [place] [address]- 5308 Jan, [facility] [place] [facility] [address] [id number] [place] [address]- 7460 Dec, [facility] [place] [facility] [address] [id number] [place] [address]- 7102 Dec, [facility] [place] [facility] [address] [id number] [place] [address]- 4141 Dec, [facility] [place] [facility] [address] [id number] [place] [address]- 1410 03 Dec, 2011 [facility] [place] [facility] [address] [id number] [place] [address]- 0984 28 Nov, 2011 [facility] [place] [facility] [address] [id number] [place] [address]29 15 Nov, 2011 [facility] [place] [facility] [address] [id number] [place] [address]- 3896 03 Nov, 2011 [facility] [place] [facility] [address] [id number] [place] [address]- 8005 03 Oct, 2011 [facility] [place] [facility] [address] [id number] [place] [address] 31 Sep, 2011 [facility] [place] [facility] [address] [id number] [place] [address]- 7286 26 Sep, 2011 [facility] [place] [facility] [address] [id number] [place] [address]- 7051 13 Sep, 2011 [facility] [place] [facility] [address] [id number] [place] [address]- 1792 15 Nov, 2010 [facility] [place] [facility] [address] [id number] [place] [address]- 2820 23 Oct, 2010 [facility] [place] [facility] [address] [facility] [id number] [place] [address]- 0195 Oct, [facility] [place] [facility] [address] [id number] [place] [address]- 4223 18 Oct, 2010 [facility] [place] [facility] [address] [id number] [place] [address]- 8819 16 Oct, 2010 [facility] [place] [facility] [address] [id number] [place] [address]- 6309 11 Sep, 2010 [facility] [place] [facility] [address] [id number] [place] [address]- 7416 April, [facility] [place] [facility] [address] [facility] [id number] [place] 1002 29 Nov, 2009 [facility] [place] [facility] [id number] [address] Nov, [facility] [id number] [address] Nov, [facility] [id number] 1340 Nov, [facility] [id number] [address]- 6693 Nov, [facility] [id number] [address]794 Oct, [facility] [id number] [address] 70[address] Oct, [facility] [id number] [address] Sep, [facility] [id number] [address] Jan, IMMUNIZATIONS No Known Immunizations SOCIAL HISTORY Never Assessed REASON FOR VISIT PLAN OF CARE VITAL SIGNS MEDICATIONS Unknown Medications RESULTS No Results PROCEDURES No Known procedures INSTRUCTIONS MEDICATIONS ADMINISTERED No Known Medications MEDICAL (GENERAL) HISTORY Type Description Date Medical History Hypertension Medical History Heart disease CABG X3 Stress test 07/2015 Medical History Gastric ulcer Medical History Hyperlipidemia Medical History Headache syndrome Medical History Psychiatric disorders-depression/racing thoughts Medical History Depression Medical History At [facility] 04/2016 Started on Eliquis Medical History Anemia 04/2016 postsurgical hip fx Surgical History right hip replacement w/ Dr. Bruce 2011 Surgical History triple bypass surgery 2003 Surgical History S/P left hip IM Nail (Intertrechanteric hip fx) 04/28/16 Hospitalization History surgeries Hospitalization History Hypertension Hospitalization History ER for a concussion 11/24/15 Hospitalization History Intertrechanteric hip fx 04/27/16 Hospitalization History [facility] (inpatient [facility] 2 times) Hx of 3 inpatient psych treatments in past in [place] oct 2016 [facility]
--- OUTSIDE RECORDS SUMMARY | 2018-08-20 12:47 | XMS REPORT ---
Author Author WOLF AGUIRRE [facility] Address [address] [place] [address] Care Team Providers Care Back Panel Padder Name Role Phone WOLF AGUIRRE Unavailable PROBLEMS Type Condition ICD9-CM Code CKS66-GS Code Onset Dates Condition Status SNOMED Code Problem Sundowning F05 Active 268579068 Problem Constipation, unspecified constipation type K59.00 Active 29074918 Problem Reactive depression F32.9 Active 67677469 Problem Vascular dementia with behavior disturbance F01.51 Active [id number] Problem Insomnia, unspecified type G47.00 Active 204543859 Problem Generalized anxiety disorder F41.1 Active 80502214 Problem Other chronic pain G89.29 Active 90105349 Problem Severe episode of recurrent major depressive disorder, without psychotic features F33.2 Active 63497427 Problem Slow transit constipation K59.01 Active 67377367 Problem 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 Active 918830644 Problem Obsessive thinking F42.8 Active 47829985 Problem Failure to thrive in adult R62.7 Active 851579088 Problem Dysthymic disorder F34.1 Active 17679961 Problem Hypertension I10 Active 84958175 Problem Mood disorder F39 Active 19599374 Problem Irritable bowel syndrome with diarrhea K58.0 Active 591149695 Problem Oropharyngeal dysphagia R13.12 Active 23609273 Problem 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 Active 09946449 Problem Other chronic pain G89.29 Active 37938092 Problem Primary insomnia F51.01 Active 8960795 Problem Poor appetite R63.0 Active 19203856 Problem 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 Active 444914653962547 Problem Iron deficiency anemia secondary to inadequate dietary iron intake D50.8 Active 406399248 Problem Coarse tremors G25.2 Active 17527960 Problem Gastroesophageal reflux disease without esophagitis K21.9 Active 830107491 Problem Essential hypertension I10 Active 74105284 ALLERGIES No Information ENCOUNTERS Encounter Location Date Diagnosis [facility] [address] [place] [id number] May, [facility] [id number] [place] [address] 27559- 5486 May, [facility] [id number] [place] [address] 30552- 4554 April, [facility] [address] [place] [id number] April, Generalized anxiety disorder F41.1 ; Obsessive thinking F42.8 and Insomnia , unspecified type G47.00 [facility] [id number] [place] [address] 57003- 2467 April, [facility] [id number] [place] [address] 14658- 1103 April, Rash of face R21 [facility] [id number] [place] [address] 23284- 9905 Mar, [facility] [id number] [place] [address] 26249- 3267 Mar, [facility] [id number] [place] [address] 66891- 4460 Mar, [facility] [id number] [place] [address] 12838- 4710 Jan, [facility] [id number] [place] [address] 60138- 6837 Jan, [facility] [address] [place] [id number] Jan, Constipation, unspecified constipation type K59.00 and Other chronic pain G89.29 [facility] [id number] [place] [address] 10671- 4981 Jan, [facility] [address] [place] [id number] Jan, Obsessive thinking F42.8 and Coarse tremors G25.2 [facility] [address] [id number] [id number] Jan, [facility] [id number] [place] [id number] Jan, [address] [id number] Jan, Generalized anxiety disorder F41.1 ; Obsessive thinking F42.8 ; Callus of foot L84 and 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 [facility] [id number] [place] [address] 61857- 5963 Dec, Generalized anxiety disorder F41.1 and Severe episode of recurrent major depressive disorder, without psychotic features F33.2 [facility] [id number] [place] [address] 44741- 7909 Nov, [facility] [id number] [place] [address] 78820- 2120 Nov, [address] [id number] Nov, Oropharyngeal dysphagia R13.12 ; Generalized anxiety disorder F41.1 and 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 [facility] [id number] [place] [address] 72682- 4657 Nov, [facility] [id number] [place] [address] [id number] Nov, [facility] [id number] [place] [address] 64644- 5570 Nov, [facility] [id number] [place] [address] 55189- 2599 Nov, [facility] [id number] [place] [address] 82265- 5958 Oct, Constipation, unspecified constipation type K59.00 and Mood disorder F39 [facility] [id number] [place] [address] 38629- 1298 Oct, [facility] [address] [id number] [id number] Sep, [facility] [id number] [id number] Sep, [facility] [id number] [id number] Sep, [facility] [id number] [id number] Sep, [facility] [address] [place] [id number] Sep, Generalized abdominal pain R10.84 [facility] [address] [id number], [place] [address] 2546 Sep, [facility] [id number] [id number] Sep, Generalized anxiety disorder F41.1 and Primary insomnia F51.01 [facility] [id number] [id number] Aug, [facility] [id number] [id number] Aug, Generalized anxiety disorder F41.1 [facility] [address]65[address] [address] Jul, [facility] [address] [id number] Jul, Obsessive thinking F42.8 [facility] [address]65[address] [address] Jul, Generalized anxiety disorder F41.1 and Irritable bowel syndrome with diarrhea K58.0 [facility] [id number], [place] [id number] Jul, Generalized anxiety disorder F41.1 [facility] [id number] [id number] Jun, Generalized anxiety disorder F41.1 [facility] [address] [id number] [address] 7357 May, [facility] [address] [place] [id number] May, Generalized anxiety disorder F41.1 ; Irritable bowel syndrome with diarrhea K58.0 and Coarse tremors G25.2 [facility] [address]00565100[place], [place] [address] 6[address] April, [facility] [id number] [place] [address] 73589- 1369 April, [facility] [id number] [place] [address] 00238- 5949 April, [facility] [id number] [place] [address] 89332- 9222 Mar, [facility] [address] [id number] Mar, Severe episode of recurrent major depressive disorder, without psychotic features F33.2 and Pain in left hip M25.552 [facility] [id number] [place] [address] 02094- 5179 Mar, [facility] [id number] [place] [address] 53944- 9551 Mar, [facility] [id number] [place] [address] 92935- 8594 Mar, [facility] [address]00565100[place], [place] [address]- 7139 Mar, Pain in right hip M25.551 and Self-care deficit in patient living alone R46.89 [facility] [address]00565100[place], [place] [address] Jan, Other chronic pain G89.29 ; Pain in left hip M25.552 and Slow transit constipation K59.01 [facility] [address]00565100[place], [place] [address]- 3719 Jan, [facility] [id number] [place] [address] 39266- 0307 Dec, Other depression F32.89 ; Constipation, unspecified constipation type K59.00 and Insomnia, unspecified type G47.00 [facility] [id number] [place] [address] 08255- 2883 Nov, Reactive depression F32.9 ; Chronic idiopathic constipation K59.04 ; Generalized anxiety disorder F41.1 ; Coarse tremors G25.2 ; Gastroesophageal reflux disease without esophagitis K21.9 ; Dysthymic disorder F34.1 ; Vitamin deficiency, unspecified E56.9 and Primary insomnia F51.01 [facility] [id number] [place] [address] 49913- 7404 Nov, [facility] [address] 34569- 0687 Nov, [facility] [id number] [place] [address] 40220- 3418 Nov, [facility] [id number] [place] [address] 36159- 2973 Nov, Reactive depression F32.9 ; Essential hypertension I10 ; Generalized anxiety disorder F41.1 ; 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 ; Pain in right hip M25.551 ; Other chronic pain G89.29 ; Chronic idiopathic constipation K59.04 ; Primary insomnia F51.01 ; Coarse tremors G25.2 ; Gastroesophageal reflux disease without esophagitis K21.9 ; Iron deficiency anemia secondary to inadequate dietary iron intake D50.8 and Vitamin deficiency, unspecified E56.9 [facility] [id number] [place] [address] 40853- 0529 Oct, [facility] [id number] [place] [address] 60462- 5773 Oct, [facility] [id number] [place] [address] 92701- 0230 Oct, [facility] [id number] [place] [address] 09376- 2374 Oct, Generalized anxiety disorder F41.1 ; Poor appetite R63.0 ; Dehydration E86.0 and Failure to thrive in adult R62.7 [facility] [id number] [place] [address] 59615- 4048 Oct, Generalized anxiety disorder F41.1 and Failure to thrive in adult R62.7 [facility] [id number] [place] [address] 83996- 7193 Oct, [facility] [address] 50980- 2693 Oct, [facility] [address] 21449 -3420 Sep, Vaginal discharge N89.8 and Acute cystitis with hematuria N30.01 [facility] [id number] [place] [address] 62473- 8446 Sep, [facility] [address] 03550- 4334 Sep, [facility] [id number] [place] [address] 22736- 9197 Sep, Dysthymic disorder F34.1 ; Acute vaginitis N76.0 ; Dysuria R30.0 and Vaginal yeast infection B37.3 [facility] [id number] [place] [address] 83865- 1270 Aug, [facility] [id number] [place] [address] 68601- 7904 Aug, [facility] [id number] [place] [address] 54059 -3577 Aug, Foul smelling urine R82.90 ; Rapid heart rate R00.0 and Flatulence R14.3 [facility] [id number] [place] [address] 23949- 2972 Aug, [facility] [id number] [place] [address] 97350- 8761 Jul, Constipation, unspecified constipation type K59.00 ; Weak R53.1 ; Poor appetite R63.0 ; Coronary artery disease involving twenty-nine palms heart without angina pectoris, unspecified vessel or lesion type I25.10 ; Fatigue, unspecified type R53.83 ; Urinary incontinence, unspecified type R32 and Insomnia, unspecified type G47.00 [facility] [address] 77881- 3511 Jul, [facility] [address] 57901- 0558 Jun, Dysuria R30.0 [facility] [address] 10032- 9518 Jun, [facility] [address] 64989- 8662 Jun, Urinary tract infection, site not specified N39.0 ; Acute vaginitis N76.0 and Diarrhea, unspecified type R19.7 [facility] [address] 39380- 6340 May, [facility] [address] 03161- 3968 April, [facility] [address] [id number] April, Encounter for dental examination Z01.20 [facility] [address] 19427- 7770 April, [facility] [address] 93933- 6748 April, Tremor R25.1 and Episodic tension-type headache, not intractable G44.219 [facility] [address] 22707- 3766 Mar, [facility] [address] 77654- 5920 Jan, Mood disorder F39 [facility] [address], [place] [address] Jan, [facility] [id number] [place] [address] 09716- 8365 Jan, [facility] [address], [place] [address]- 5296 Jan, [facility] [id number] [place] [address] 40386- 0876 Jan, [facility] [id number] [place] [address] 73136- 4697 Jan, [facility] [id number] [place] [address] 72003- 8885 Jan, [facility] [id number] [place] [address] 35057 -2666 Dec, Acute diarrhea R19.7 [facility] [address] [place] [address] 69264- 2138 Dec, [facility] [id number] [place] [address] 29923- 2320 Dec, [facility] [id number] [place] [address] 78091- 9377 Dec, [facility] [id number] [place] [address] 52163 -8309 Dec, N&V (nausea and vomiting) R11.2 [facility] [address], [place] [address]- 1051 Dec, Generalized anxiety disorder F41.1 [facility] [address] [place] [address] 92248- 8122 Dec, Generalized anxiety disorder F41.1 [facility] [address], [place] [address]- 6888 Nov, Post concussion syndrome F07.81 [facility] [id number] [place] [address] [id number]- 7278 Nov, Generalized anxiety disorder F41.1 [facility] [id number] [place] [address] 60385- 6874 Nov, [facility] [id number] [place] [address] 123375- 6762 Nov, Generalized anxiety disorder F41.1 [facility] [id number] [place] [address] [id number] Oct, Dental caries K02.9 [facility] [address] 30216- 7122 Oct, [facility] [address] [id number] Oct, Dental examination Z01.20 [facility] [address] [id number] Oct, Encounter for dental examination Z01.20 [facility] [id number] [place] [address] 14669- 8023 Oct, CAD (coronary artery disease) I25.10 [facility] [id number] [place] [address] 09171- 5573 Sep, Generalized anxiety disorder F41.1 [facility] [id number] [place] [address] 92861- 1753 Sep, [facility] [id number] [place] [address] 50438- 8412 Sep, Rash and other nonspecific skin eruption R21 and Yeast vaginitis B37.3 [facility] [id number] [place] [address] 95423- 0569 Sep, Generalized anxiety disorder F41.1 [facility] [id number] [place] [address] 25092- 2749 17 Aug, 2015 Insect bites 919.4 and Hemorrhoids 455.6 [facility] [address] [place] [address]- 5692 Aug, Generalized anxiety disorder 300.02 [facility] [id number] [place] [address] 56965- 2887 08 Aug, 2015 [facility] [id number] [place] [address] 53197- 1310 Aug, [facility] [id number] [place] [address] 87911- 9799 Aug, Generalized anxiety disorder 300.02 ; No condition on Onida II V71.09 ; Heart problem 429.9 and Hypertension 401.9 [facility] [id number] [place] [address] 98965- 3432 Aug, [facility] [id number] [place] [address] 59230- 9753 Jul, [facility] [id number] [place] [address] 97906- 3085 Jul, [facility] [id number] [place] [address] 04983- 0770 Jul, [facility] [id number] [place] [address] 48583- 3663 Jul, [facility] [id number] [place] [address] 33106- 3810 Jul, Rash 782.1 [facility] [id number] [place] [address] 89084- 6984 Jul, UTI (urinary tract infection) 599.0 [facility] [id number] [place] [address] 78137- 6378 Jul, [facility] [id number] [place] [address] 14876- 0979 Jun, Dysthymia 300.4 and Anxiety 300.00 [facility] [id number] [place] [address] 34849- 3341 Jun, 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 [id number], [place] [address]- 0906 May, Unspecified breast screening V76.10 [facility] [address] [id number] [id number] May, Dental examination V72.2 [facility] [address] [id number], [place] [address]- 9496 April, [facility] [address] [id number], [place] [address]- 7536 April, [facility] [address] [id number] April, Dental examination V72.2 [facility] [address] [id number] [address] April, Dental examination V72.2 [facility] [address] [id number], [place] [address]- 1480 Mar, [facility] [address] [facility] [id number], [place] [address]- 5933 Mar, [facility] [address] [id number], [place] [address]- 5636 Jan, [facility] [address] [id number], [place] [address]- 4806 Jan, [facility] [address] [facility] [id number], [place] [address]- 6376 Jan, [facility] [address] [facility] [id number]- 2416 Jan, [facility] [address] [id number], [place] [address]- 3816 Jan, [facility] [place] [facility] [address] [id number] [place] [address]- 2787 16 Jan, 2015 [facility] [place] [facility] [address] [id number] [place] [address]- 7367 13 Jan, 2015 [facility] [place] [facility] [address] [id number] [place] [address]- 7070 13 Jan, 2014 [facility] [place] [facility] [address] [id number] [place] [address]- 9650 11 Jan, 2014 [facility] [place] [facility] [address] [id number] [place] [address]- 6724 11 Jan, 2015 [facility] [place] [facility] [address] [id number] [place] [address]- 0464 Jan, [facility] [place] [facility] [address] [id number] [place] [address]- 8526 Jan, [facility] [place] [facility] [address] [id number] [place] [address]- 6319 Jan, [facility] [place] [facility] [address] [id number] [place] [address]- 6326 Jan, [facility] [place] [facility] [address] [id number] [place] [address]- 1411 Jan, 2014 [facility] [place] [facility] [address] [id number] [place] [address]- 3643 Jan, 2014 [facility] [place] [facility] [address] [id number] [place] [address]- 0767 Jan, 2014 [facility] [place] [facility] [address] [id number] [place] [address]- 8431 Jan, 2014 [facility] [place] [facility] [address] [id number] [place] [address]- 9675 Jan, 2014 [facility] [place] [facility] [address] [id number] [place] [address]- 1588 Jan, 2014 [facility] [place] [facility] [address] [id number] [place] [address]- 0911 Jan, [facility] [place] [facility] [address] [id number] [place] [address]- 0417 Jan, [facility] [place] [facility] [address] [id number] [place] [address]- 9174 Dec, [facility] [place] [facility] [address] [id number] [place] [address] Dec, [facility] [place] [facility] [address] [id number] [place] [address] Dec, [facility] [place] [facility] [address] [id number] [place] [address] Dec, [facility] [place] [facility] [address] [id number] [place] [address] Nov, [facility] [place] [facility] [address] [id number] [place] [address] Nov, [facility] [place] [facility] [address] [id number] [place] [address] Nov, [facility] [place] [facility] [address] [id number] [place] [address] Nov, [facility] [place] [facility] [address] [facility] [id number] [place] [address] Nov, [facility] [place] [facility] [address] [id number] [place] [address] Nov, [facility] [place] [facility] [address] [id number] [place] [address] Nov, [facility] [place] [facility] [address] [id number] [place] [address] Oct, [facility] [place] [facility] [address] [id number] [place] [address] Oct, [facility] [place] [facility] [address] [id number] [place] [address] Oct, [facility] [place] [facility] [address] [id number] [place] [address] Oct, [facility] [place] [facility] [address] [id number] [place] [address] Oct, [facility] [place] [facility] [address] [id number] [place] [address] Oct, [facility] [place] [facility] [address] [id number] [place] [address] Oct, [facility] [place] [facility] [address] [id number] [place] [address] Oct, [facility] [place] [facility] [address] [id number] [place] [address] Oct, [facility] [place] [facility] [address] [id number] [place] [address] Oct, [facility] [place] [facility] [address] [id number] [place] [address] Oct, [facility] [place] [facility] [address] [id number] [place] [address] Oct, [facility] [place] [facility] [address] [id number] [place] [address] Sep, [facility] [place] [facility] [address] [id number] [place] [address] Sep, [facility] [place] [facility] [address] [address] [id number] [place] [address] Sep, [facility] [place] [facility] [address] [id number] [place] [address] Sep, [facility] [place] [facility] [address] [id number] [place] [address] Jul, [facility] [place] [facility] [address] [id number] [place] [address] Jul, [facility] [place] [facility] [address] [id number] [place] [address]69 Jul, [facility] [place] [facility] [address] [id number] [place] [address] Jul, [facility] [place] [facility] [address] [id number] [place] [address] 9820 Jun, [facility] [place] [facility] [address] [id number] [place] [address]653 Jun, [facility] [place] [facility] [address] [id number] [place] [address] 9894 Jun, [facility] [place] [facility] [address] [id number] [place] [address] 4636 Jun, [facility] [place] [facility] [address] [id number] [place] [address] May, [facility] [place] [facility] [address] [id number] [place] [address] 72[address] May, [facility] [place] [facility] [address] [id number] [place] [address] 4358 April, [facility] [place] [facility] [address] [id number] [place] [address] 6589 April, [facility] [place] [facility] [address] [id number] [place] [address] 0591 April, [facility] [place] [facility] [address] [id number] [place] [address] 6093 April, [facility] [place] [facility] [address] [id number] [place] [address] 3820 April, [facility] [place] [facility] [address] [id number] [place] [address] April, [facility] [place] [facility] [address] [id number] [place] [address] April, [facility] [place] [facility] [address] [id number] [place] [address]- 1482 April, [facility] [place] [facility] [address] [id number] [place] [address] 2910 April, [facility] [address] [id number] [place] [address] 5345 Mar, [facility] [place] [facility] [address] [id number] [place] [address] 2876 Mar, [facility] [place] [facility] [address] [id number] [place] [address] 9447 Mar, [facility] [place] [facility] [address] [id number] [place] [address] 1851 Mar, [facility] [place] [facility] [address] [id number] [place] [address] 8436 Jan, [facility] [place] [facility] [address] [id number] [place] [address] 00[address] Jan, [facility] [place] [facility] [address] [id number] [place] [address] 1870 Jan, [facility] [place] [facility] [address] [id number] [place] [address] 1803 Jan, [facility] [place] [facility] [address] [id number] [place] [address] 65[address] Jan, [facility] [place] [facility] [address] [id number] [place] [address] 1248 Jan, [facility] [place] [facility] [address] [id number] [place] [address] 8361 Jan, [facility] [place] [facility] [address] [id number] [place] [address]- 0606 Jan, [facility] [place] [facility] [address] [id number] [place] [address]- 6893 Jan, [facility] [place] [facility] [address] [id number] [place] [address] 2[address] Jan, [facility] [place] [facility] [address] [id number] [place] [address] 2041 Jan, [facility] [place] [facility] [address] [id number] [place] [address]- 1082 Jan, [facility] [place] [facility] [address] [id number] [place] [address] 4063 Dec, [facility] [place] [facility] [address] [id number] [place] [address] 6919 Dec, [facility] [place] [facility] [address] [id number] [place] [address] 1505 Dec, [facility] [place] [facility] [address] [id number] [place] [address] 9224 Dec, [facility] [place] [facility] [address] [id number] [place] [address] 9793 Nov, [facility] [place] [facility] [address] [id number] [place] [address] 7735 Nov, [facility] [place] [facility] [address] [id number] [place] [address]- 3652 Nov, [facility] [place] [facility] [address] [id number] [place] [address] 1912 Nov, [facility] [place] [facility] [address] [id number] [place] [address]- 7756 Oct, [facility] [place] [facility] [address] [id number], [place] [address] Oct, [facility] [place] [facility] [address] [id number], [place] [address] 2012 Sep, [facility] [place] [facility] [address] [id number] [place] [address] 3149 Sep, [facility] [place] [facility] [address] [id number], [place] [address] Jul, [facility] [place] [facility] [address] [id number] [place] [address] 3103 Jul, [facility] [place] [facility] [address] [id number] [place] [address] 9859 Jun, [facility] [address] [id number] [place] [address]- 0115 Jun, [facility] [address] [id number] [place] [address]- 8583 Jun, [facility] [address] [id number] [place] [address]- 9386 May, [facility] [address] [id number] [place] [address] 7208 May, [facility] [address] [id number] [place] [address]- 0479 May, [facility] [address] [id number] [place] [address] 9657 May, [facility] [address] [id number] [place] [address] 2341 May, [facility] [address] [id number] [place] [address]- 2794 April, [facility] [address] [id number] [place] [address] 4612 April, [facility] [address] [id number] [place] [address] 5592 April, [facility] [address] [id number] [place] [address]- 8521 April, [facility] [address] [id number] [place] [address]- 4322 April, [facility] [place] [facility] [address] [id number] [place] [address]- 7712 April, [facility] [address] [id number] [id number] [address] Mar, [facility] [address] [id number] [place] [address]- 5410 15 Mar, 2013 [facility] [place] [facility] [address] [id number] [place] [address]- 8667 Jan, [facility] [address] [id number] [place] [address]- 3369 Jan, [facility] [address] [id number] [place] [address]- 7536 Jan, [facility] [address] [id number] [place] [address]- 1543 Jan, [facility] [address] [id number] [place] [address]- 9722 Jan, [facility] [address] [id number] [place] [address]- 4577 Jan, [facility] [address] [id number] [place] [address]- 4185 Jan, [facility] [address] [id number] [place] [address]- 2219 Jan, [facility] [address] [id number] [place] [address]- 5105 Jan, [facility] [address] [facility] [id number] [place] [address]- 9190 Jan, [facility] [address] [id number] [place] [address]- 0885 Jan, [facility] [address] [id number] [place] [address]- 8048 Dec, [facility] [address] [id number] [place] [address]- 2140 Nov, [facility] [address] [id number] [place] [address]- 3486 Nov, [facility] [place] [facility] [address] [id number] [place] [address]- 4931 Nov, [facility] [address] [id number] [place] [address]- 3719 26 Nov, 2012 [facility] [place] [facility] [address] [id number] [place] [address]- 4376 21 Nov, 2012 [facility] [place] [facility] [address] [id number] [place] [address] 20 Nov, 2012 [facility] [place] [facility] [address] [facility] [id number] [place] [address]- 2046 20 Nov, 2012 [facility] [place] [facility] [address] [id number] [place] [address]- 1800 19 Nov, 2012 [facility] [place] [facility] [address] [id number] [place] [address]- 2727 Nov, [facility] [place] [facility] [address] [facility] [id number] [place] [address]- 5658 18 Nov, 2012 [facility] [place] [facility] [address] [facility] [id number] [place] [address]- 1087 18 Nov, 2012 [facility] [place] [facility] [address] [id number] [place] [address]- 1290 Nov, [facility] [place] [facility] [address] [facility] [id number] [place] [address]- 6527 Nov, [facility] [place] [facility] [address] [facility] [id number] [place] [address]- 7041 Oct, [facility] [place] [facility] [address] [facility] [id number] [place] [address]- 8724 Oct, [facility] [place] [facility] [address] [facility] [id number], [place] [address]- [address]66 Oct, [facility] [place] [facility] [address] [id number] [place] [address]- 5684 Sep, [facility] [place] [facility] [address] [facility] [id number] [place] [address]- 6939 Sep, [facility] [place] [facility] [address] [facility] [id number], [place] [address]- 2499 Sep, [facility] [place] [facility] [address] [id number] [place] [address]- 1049 10 Sep, 2012 [facility] [place] [facility] [address] [id number] [place] [address]- 9103 27 Aug, 2012 [facility] [place] [facility] [address] [id number] [place] [address]- 8577 20 Aug, 2012 [facility] [place] [facility] [address] [id number] [place] [address]- 0864 24 Jul, 2012 [facility] [place] [facility] [address] [id number] [place] [address]- 1736 May, [facility] [place] [facility] [address] [id number] [place] [address]- 8268 May, [facility] [place] [facility] [address] [id number] [place] [address]- 6320 May, [facility] [place] [facility] [address] [id number] [place] [address]- 0069 April, [facility] [place] [facility] [address] [id number] [place] [address]- 1667 Mar, [facility] [place] [facility] [address] [id number] [place] [address]- 9014 Mar, [facility] [place] [facility] [address] [id number] [place] [address]- 4165 Mar, [facility] [place] [facility] [address] [id number] [place] [address]- 6166 Jan, [facility] [place] [facility] [address] [id number] [place] [address]- 2335 Jan, [facility] [place] [facility] [address] [id number] [place] [address]- 4380 Jan, [facility] [place] [facility] [address] [id number] [place] [address]- 3425 Dec, [facility] [place] [facility] [address] [id number] [place] [address]- 3017 Dec, [facility] [place] [facility] [address] [id number] [place] [address]- 1723 Dec, [facility] [place] [facility] [address] [id number] [place] [address]- 5899 Dec, [facility] [place] [facility] [address] [id number] [place] [address]- 8198 Nov, [facility] [place] [facility] [address] [id number] [place] [address]- 5433 Nov, [facility] [place] [facility] [address] [id number] [place] [address]- 5174 Nov, [facility] [place] [facility] [address] [id number] [place] [address]- 0060 Oct, [facility] [place] [facility] [address] [id number] [place] [address]- 5745 Sep, [facility] [place] [facility] [address] [id number] [place] [address]- 7007 Sep, [facility] [place] [facility] [address] [id number] [place] [address]- 2656 Sep, [facility] [place] [facility] [address] [id number] [place] [address]- 8116 Nov, [facility] [place] [facility] [address] [id number], [place] [address]- 9233 Oct, [facility] [place] [facility] [address] [id number] [place] [address]- 9628 Oct, [facility] [place] [facility] [address] [id number] [place] [address]- 5392 18 Oct, 2010 [facility] [place] [facility] [address] [id number] [place] [address]- 3842 16 Oct, 2010 [facility] [place] [facility] [address] [id number] [place] [address]- 4520 11 Sep, 2010 [facility] [place] [facility] [id number], [place] [address] 6529 April, [facility] [address], [place] [address]- 4372 Nov, [facility] [address], [place] [address]- 4154 Nov, [facility] [address], [place] [address]- 9562 Nov, [facility] [address], [place] [address]- 5462 Nov, [facility] [id number] [place] [address] 4025 Nov, [facility] [address], [place] [address]- 4645 Oct, [facility] [address], [place] [address]- 3411 Oct, [facility] [address], [place] [address]- 5784 Sep, [facility] [address], [place] [address] Jan, IMMUNIZATIONS No Known Immunizations SOCIAL HISTORY Never Assessed REASON FOR VISIT requesting return call PLAN OF CARE VITAL SIGNS [...] Bruce 2011 Surgical History triple bypass surgery 2004 Surgical History S/P left hip IM Nail (Intertrechanteric hip fx) 04/28/16 Hospitalization History surgeries Hospitalization History Hypertension Hospitalization History ER for a concussion 11/24/15 Hospitalization History Intertrechanteric hip fx 04/27/16 Hospitalization History [facility] ([facility]) Hx of 3 inpatient psych treatments in past in [place] oct 2016 [facility]
--- OUTSIDE RECORDS SUMMARY | 2018-08-20 12:49 | XMS REPORT ---
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 Name Role Phone WOLF AGUIRRE Unavailable PROBLEMS Type Condition ICD9-CM Code [id number] Code Onset Dates Condition Status SNOMED Code Problem Coarse tremors G25.2 Active 05441677 Problem Gastroesophageal reflux disease without esophagitis K21.9 Active 632173445 Problem Reactive depression F32.9 Active 24351201 Problem Irritable bowel syndrome with diarrhea K58.0 Active 590679111 Problem Vascular dementia with behavior disturbance F01.51 Active [id number] Problem Severe episode of recurrent major depressive disorder, without psychotic features F33.2 Active 50081051 Problem Constipation, unspecified constipation type K59.00 Active 02015262 Problem Sundowning 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 Active 417139684 Problem Insomnia, unspecified type G47.00 Active 041553579 Problem Essential hypertension I10 Active 76496777 Problem Slow transit constipation K59.01 Active 85522586 Problem Other chronic pain G89.29 Active 39556502 Problem Hypertension I10 Active 82516849 Problem Dysthymic disorder F34.1 Active 73919840 Problem Generalized anxiety disorder F41.1 Active 08563935 Problem Encounter for dental examination Z01.20 Active 139056913 Problem Atherosclerotic heart disease of [place] 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 Active 373984366398915 Problem Other chronic pain G89.29 Active 46492115 Problem Failure to thrive in adult R62.7 Active 526334853 Problem Primary insomnia F51.01 Active 4282089 Problem Poor appetite R63.0 Active 81134104 Problem Iron deficiency anemia secondary to inadequate dietary iron intake D50.8 Active 511685121 ALLERGIES No Information SOCIAL HISTORY Never Assessed PLAN OF CARE Activity Details Follow Up prn Reason: VITAL SIGNS MEDICATIONS Medication Instructions Dosage Frequency Start Date End Date Duration Status Exelon 4.6 MG/24HR Transdermal Once a day 1 patch to skin 24h Active Naproxen 500 mg Orally every 12 hrs 1 tablet as needed 12h Jan, Active MiraLax - Orally 2 times a day 17grams mixed with 8oz of juice or tea 12h Nov, 30 days Active Zyprexa 2.5 MG Orally twice a day 1/2 tablet 12h Active Aspir-81 81 MG Orally Once a day 1 tablet 24h Nov, Active Marinol 2.5 MG Orally 3 times a day 1 capsule 8h Active Lorazepam 1 MG Orally twice a day 1 tablet 12h Active Trazodone HCl 50 mg Orally Once a day 1 tablet at bedtime 24h Active Celexa 10 mg Orally Once a day 1.5 tablets 24h Active RESULTS No Results PROCEDURES Procedure Date Ordered Result Body Site [facility] VISIT ESTABLISHED PATIENT March 28, 2017 IMMUNIZATIONS No Known Immunizations MEDICAL (GENERAL) HISTORY Type Description Date Medical History Hypertension Medical History Heart disease CABG X3 Stress test 07/2015 Medical History Gastric ulcer Medical History Hyperlipidemia Medical History Headache syndrome Medical History Psychiatric disorders-depression/racing thoughts Medical History Depression Medical History At [facility] 04/2016 Started on Eliquis Medical History Anemia 04/2016 postsurgical hip fx Surgical History right hip replacement w/ Dr. Bruce 2011 Surgical History triple bypass surgery 2003 Surgical History S/P left hip IM Nail (Intertrechanteric hip fx) 04/28/16 Hospitalization History surgeries Hospitalization History Hypertension Hospitalization History ER for a concussion 11/24/15 Hospitalization History Intertrechanteric hip fx 04/27/16 Hospitalization History [facility] oct 2016 [facility]
--- OUTSIDE RECORDS SUMMARY | 2018-08-20 12:50 | XMS REPORT ---
Author Author WOLF AGUIRRE [facility] Address [address] [place] [address] Care Team Providers Care Advertising Supervisor Name Role Phone WOLF AGUIRRE Unavailable PROBLEMS Type Condition ICD9-CM Code ZNK32-VH Code Onset Dates Condition Status SNOMED Code Problem Sundowning F05 Active 392099662 Problem Constipation, unspecified constipation type K59.00 Active 13109175 Problem Reactive depression F32.9 Active 03028779 Problem Vascular dementia with behavior disturbance F01.51 Active 331682728563396 Problem Insomnia, unspecified type G47.00 Active 490757397 Problem Generalized anxiety disorder F41.1 Active 27605911 Problem Other chronic pain G89.29 Active 88058488 Problem Severe episode of recurrent major depressive disorder, without psychotic features F33.2 Active 38158346 Problem Slow transit constipation K59.01 Active 35445725 Problem 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 Active 027925973 Problem Obsessive thinking F42.8 Active 58421163 Problem Failure to thrive in adult R62.7 Active 131862404 Problem Dysthymic disorder F34.1 Active 36494602 Problem Hypertension I10 Active 43199448 Problem Mood disorder F39 Active 24869102 Problem Irritable bowel syndrome with diarrhea K58.0 Active 421910358 Problem Oropharyngeal dysphagia R13.12 Active 22838027 Problem 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 Active 76019651 Problem Other chronic pain G89.29 Active 42439923 Problem Primary insomnia F51.01 Active 6040812 Problem Poor appetite R63.0 Active 03918605 Problem 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 Active 184977852089042 Problem Iron deficiency anemia secondary to inadequate dietary iron intake D50.8 Active 076302873 Problem Coarse tremors G25.2 Active 44282510 Problem Gastroesophageal reflux disease without esophagitis K21.9 Active 968257947 Problem Essential hypertension I10 Active 17273770 ALLERGIES No Information ENCOUNTERS Encounter Location Date Diagnosis [facility] [address] [place] [id number] Aug, Obsessive thinking F42.8 ; Irritable bowel syndrome with diarrhea K58.0 ; Pain in right foot M79.671 ; Pain of left foot M79.672 and Gastroesophageal reflux disease without esophagitis K21.9 [facility] [address] [place] [address] 46218- 8848 Aug, [facility] [place] [id number] [place] [address] 47422- 3510 Jul, [place] [id number] [place] [address] 56964- 9946 Jun, [facility] [place] [id number] [place] [address] 70232- 2238 Jun, [facility] [address] [id number] Jun, Left lower quadrant pain R10.32 and Left leg pain M79.605 [facility] [place] [id number] [place] [address] 53528- 7940 Jun, [facility] [address] [id number] Jun, Pain in left hip M25.552 ; Pain in right hip M25.551 and Primary insomnia F51.01 [place] [address] [place] [address] 10374- 4811 Jun, [facility] [address] [id number] May, [place] [address] [place] [address] 72892- 5593 May, [place] [address] [place] [address] 74115- 2117 May, [facility] [address] [place] [id number] May, Mood disorder F39 [facility] [place] [id number] [address] 5914 May, [facility] [place] [id number] [place] [address] 91684- 9746 April, [facility] [address] [id number] April, Generalized anxiety disorder F41.1 ; Obsessive thinking F42.8 and Insomnia , unspecified type G47.00 [facility] [place] [id number] [place] [address] 70330- 3058 April, [facility] [place] [id number] [place] [address] 09443- 7876 April, Rash of face R21 [facility] [place] [id number] [place] [address] 36709- 1472 Mar, [facility] [place] [id number] [place] [address] 37464- 0983 Mar, [facility] [place] [id number] [place] [address] 18637- 6508 Mar, [facility] [place] [id number] [place] [address] 83596- 9045 Jan, [facility] [place] [id number] [place] [address] 73016- 9313 Jan, [facility] [address] [id number] Jan, Constipation, unspecified constipation type K59.00 and Other chronic pain G89.29 [facility] [place] [address] [place] [address] 76053- 4291 Jan, [facility] [address] [id number] Jan, Obsessive thinking F42.8 and Coarse tremors G25.2 [facility] [id number] [place] [address] [id number] Jan, [facility] [address] [id number] Jan, [facility] [address] [id number] Jan, Generalized anxiety disorder F41.1 ; Obsessive thinking F42.8 ; Callus of foot L84 and 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 [facility] [place] [address] [place] [address] 85638- 4425 Dec, Generalized anxiety disorder F41.1 and Severe episode of recurrent major depressive disorder, without psychotic features F33.2 [facility] [place] [address] [place] [address] 096724- 1157 Nov, [facility] [place] [id number] [place] [address] 14583- 5159 Nov, [facility] [address] [id number] Nov, Oropharyngeal dysphagia R13.12 ; Generalized anxiety disorder F41.1 and 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 [facility] [place] [id number] [place] [address] 21916- 1354 Nov, [facility] [id number] [place] [address] [id number] Nov, [facility] [place] [address] [place] [address] 97002- 0240 Nov, [facility] [place] [address] [place] [address] 37643- 3755 Nov, [facility] [place] [id number] [place] [address] 54530- 0693 Oct, Constipation, unspecified constipation type K59.00 and Mood disorder F39 [facility] [place] [address] [place] [address] 785253- 7617 Oct, [facility] [id number] [place] [address] [id number] Sep, [facility] [id number] [place] [address] [id number] Sep, [facility] [id number] [id number] Sep, [facility] [id number] [id number] Sep, [facility] [address] [place] [id number] Sep, Generalized abdominal pain R10.84 [facility] [place] [address] [address] 2546 Sep, [facility] [id number] [id number] Sep, Generalized anxiety disorder F41.1 and Primary insomnia F51.01 [facility] [id number] [id number] Aug, [facility] [id number] [id number] Aug, Generalized anxiety disorder F41.1 [facility] [place] [id number] [address]- 2507 Jul, [facility] [address] [place] [id number] Jul, Obsessive thinking F42.8 [facility] [place] [address] [address] Jul, Generalized anxiety disorder F41.1 and Irritable bowel syndrome with diarrhea K58.0 [facility] [address] [id number] [id number] Jul, Generalized anxiety disorder F41.1 [facility] [address] [id number] [id number] Jun, Generalized anxiety disorder F41.1 [facility] [place] [id number] [address] 3863 May, [facility] [address] [place] [id number] May, Generalized anxiety disorder F41.1 ; Irritable bowel syndrome with diarrhea K58.0 and Coarse tremors G25.2 [facility] [place] [address] [address] 7676 April, [facility] [place] [id number] [place] [address] 51253- 9316 April, [facility] [place] [address], [place] [address]- 3523 April, [facility] [place] [id number] [place] [address] 61785- 5387 Mar, [facility] [address] [id number] Mar, Severe episode of recurrent major depressive disorder, without psychotic features F33.2 and Pain in left hip M25.552 [facility] [place] [id number] [address] Mar, [place] [place] [id number] [place] [address] 28671- 4357 Mar, [facility] [place] [id number] [place] [address] 02675- 2890 Mar, [place] [place] [id number] [place] [address] 61565- 7654 Mar, Pain in right hip M25.551 and Self-care deficit in patient living alone R46.89 [facility] [address] [place] [address] 12288 -6518 Jan, Other chronic pain G89.29 ; Pain in left hip M25.552 and Slow transit constipation K59.01 [place] [place] [id number] [place] [address] 87669- 7685 Jan, [facility] [place] [id number] [place] [address] 43845- 7725 Dec, Other depression F32.89 ; Constipation, unspecified constipation type K59.00 and Insomnia, unspecified type G47.00 [place] [place] [id number] [place] [address] 20318- 2921 Nov, Reactive depression F32.9 ; Chronic idiopathic constipation K59.04 ; Generalized anxiety disorder F41.1 ; Coarse tremors G25.2 ; Gastroesophageal reflux disease without esophagitis K21.9 ; Dysthymic disorder F34.1 ; Vitamin deficiency, unspecified E56.9 and Primary insomnia F51.01 [place] [place] [id number] [place] [address] 29563- 5459 Nov, [place] [address] 10005- 4348 Nov, [place] [address] 71856- 6480 Nov, [place] [place] [address] [id number] [place] [address] 26167- 1065 Nov, Reactive depression F32.9 ; Essential hypertension I10 ; Generalized anxiety disorder F41.1 ; 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 ; Pain in right hip M25.551 ; Other chronic pain G89.29 ; Chronic idiopathic constipation K59.04 ; Primary insomnia F51.01 ; Coarse tremors G25.2 ; Gastroesophageal reflux disease without esophagitis K21.9 ; Iron deficiency anemia secondary to inadequate dietary iron intake D50.8 and Vitamin deficiency, unspecified E56.9 [place] [id number] [place] [address] 26571- 5191 Oct, [facility] [id number] [place] [address] 10109- 3600 Oct, [place] [place] [address] [id number] [place] [address] 90478- 6547 Oct, [address] 12043- 2739 Oct, Generalized anxiety disorder F41.1 ; Poor appetite R63.0 ; Dehydration E86.0 and Failure to thrive in adult R62.7 [address] [place] [address]- 1688 Oct, Generalized anxiety disorder F41.1 and Failure to thrive in adult R62.7 [facility] [place] [id number] [place] [address] 74858- 2671 Oct, [facility] [place] [id number] [place] [address] 82373- 3715 Oct, [facility] [address] 77189 -5239 Sep, Vaginal discharge N89.8 and Acute cystitis with hematuria N30.01 [facility] [place] [address] 65368- 4991 Sep, [facility] [place] [address] 45842- 5417 Sep, [facility] [place] [address] 78974- 6703 Sep, Dysthymic disorder F34.1 ; Acute vaginitis N76.0 ; Dysuria R30.0 and Vaginal yeast infection B37.3 [facility] [place] [id number] [place] [address] 81090- 1091 Aug, [facility] [place] [id number] [place] [address] 32317- 9427 Aug, [facility] [id number] [place] [address] 22489 -2553 Aug, Foul smelling urine R82.90 ; Rapid heart rate R00.0 and Flatulence R14.3 [facility] [place] [id number] [place] [address] 83112- 7512 Aug, [facility] [place] [address] 71614- 1251 Jul, Constipation, unspecified constipation type K59.00 ; Weak R53.1 ; Poor appetite R63.0 ; Coronary artery disease involving ambler heart without angina pectoris, unspecified vessel or lesion type I25.10 ; Fatigue, unspecified type R53.83 ; Urinary incontinence, unspecified type R32 and Insomnia, unspecified type G47.00 [facility] [place] [id number] [place] [address] 96222- 3256 Jul, [facility] [place] [id number] [place] [address] 68929- 5851 Jun, Dysuria R30.0 [facility] [place] [address] 65362- 4380 Jun, [place] [address] 81791- 6248 Jun, Urinary tract infection, site not specified N39.0 ; Acute vaginitis N76.0 and Diarrhea, unspecified type R19.7 [place] [place] [id number] [place] [address] 17960- 2102 May, [facility] [place] [id number] [place] [address] 01392- 0828 April, [facility] [address] [id number] April, Encounter for dental examination Z01.20 [place] [id number] [place] [address] 73243- 5439 April, [place] [id number] [place] [address] 08080- 7821 April, Tremor R25.1 and Episodic tension-type headache, not intractable G44.219 [facility] [place] [id number] [place] [address] 53043- 4929 Mar, [facility] [place] [address] 38022- 2399 Jan, Mood disorder F39 [facility] [id number] [place] [address] 54537 -9783 Jan, [facility] [place] [address] [place] [address]- 5255 09 Jan, 2016 [facility] [place] [address] [place] [address] 86601- 4030 Jan, [facility] [place] [id number] [place] [address] 71045- 4016 Jan, [facility] [place] [address] [place] [address] 41783- 6140 Jan, [facility] [place] [id number] [place] [address] 01361- 1250 Jan, [facility] [id number] [place] [address] 35763 -0064 Dec, Acute diarrhea R19.7 [facility] [place] [id number] [place] [address] 16241- 3606 Dec, [facility] [place] [id number] [place] [address] 51177- 9173 Dec, [facility] [place] [address] [place] [address] 02436- 6618 Dec, [facility] [id number] [place] [address] 44711 -5898 Dec, N&V (nausea and vomiting) R11.2 [facility] [place] [address] [place] [address] 89268- 8633 Dec, Generalized anxiety disorder F41.1 [facility] [place] [address] [place] [address] 57304- 8047 Dec, Generalized anxiety disorder F41.1 [facility] [place] [id number] [place] [address] 46028- 3081 Nov, Post concussion syndrome F07.81 [facility] [place] [address] [place] [address] 29547- 1070 Nov, Generalized anxiety disorder F41.1 [facility] [place] [id number] [place] [address] 24757452- 8968 Nov, [facility] [place] [id number] [place] [address] 27447- 7599 Nov, Generalized anxiety disorder F41.1 [facility] [id number] [place] [address] [id number] Oct, Dental caries K02.9 [facility] [place] [address] 93626- 6546 Oct, [facility] [id number] [place] [address] [id number] Oct, Dental examination Z01.20 [facility] [address] [id number] Oct, Encounter for dental examination Z01.20 [facility] [place] [id number] [place] [address] 77522- 6159 Oct, CAD (coronary artery disease) I25.10 [facility] [place] [id number] [place] [address] 84358- 3371 Sep, Generalized anxiety disorder F41.1 [facility] [place] [id number] [place] [address] 92738- 2465 Sep, [facility] [place] [id number] [place] [address] 62692- 0740 Sep, Rash and other nonspecific skin eruption R21 and Yeast vaginitis B37.3 [facility] [place] [id number] [place] [address] 22492- 3346 Sep, Generalized anxiety disorder F41.1 [facility] [place] [id number] [place] [address] 58501- 1393 Aug, Insect bites 919.4 and Hemorrhoids 455.6 [facility] [place] [id number] [place] [address] 24042- 4177 Aug, Generalized anxiety disorder 300.02 [facility] [place] [address] 95224- 5592 Aug, [facility] [place] [address] [place] [address] 91634- 8179 Aug, [facility] [place] [id number] [place] [address] 07579- 1127 Aug, Generalized anxiety disorder 300.02 ; No condition on Tyro II V71.09 ; Heart problem 429.9 and Hypertension 401.9 [facility] [place] [id number] [place] [address] 56824- 4040 Aug, [facility] [place] [id number] [place] [address] 79992- 0294 Jul, [facility] [place] [id number] [place] [address] 95805- 3463 Jul, [facility] [place] [id number] [place] [address] 47578- 6319 Jul, [facility] [place] [id number] [place] [address] 97267- 2510 Jul, [facility] [place] [id number] [place] [address] 86766- 6103 Jul, Rash 782.1 [facility] [place] [id number] [place] [address] 89327- 6389 Jul, UTI (urinary tract infection) 599.0 [facility] [place], [facility] [id number] [place] [address] [phone] Jul, [facility] [place] [id number] [place] [address] [id number] Jun, Dysthymia 300.4 and Anxiety 300.00 [facility] [place] [id number] [place] [address] [phone] Jun, 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 [facility] [place], [facility] [id number] [place] [address] [phone] May, [facility] [place] [id number] [address] 2546 May, [facility] [address] [id number], [place] [address] 2546 May, Unspecified breast screening V76.10 [facility] [address] [id number] [id number] May, Dental examination V72.2 [facility] [address] [id number], [place] [address] 2546 April, [facility] [place], [facility] [address] [id number], [place] [address] April, [facility] [id number] [id number] April, Dental examination V72.2 [facility] [id number] [id number] April, Dental examination V72.2 [facility] [place], [facility] [address] [id number], [place] [address] Mar, [facility] [place], [facility] [address] [id number] [address] Mar, [facility] [address] [facility] [id number], [place] [address] Jan, [facility] [place] [address] [id number], [place] [address] Jan, [facility] [address] [id number], [place] [address] Jan, [facility] [address] [id number], [place] [address] 18 Jan, 2015 [facility] [address] [id number], [place] [address] 2546 Jan, [facility] [address] [id number], [place] [address] Jan, [facility] [address] [id number] [place] [address] 13 Jan, 2014 [facility] [place] [facility] [address] [id number] [place] [address]- 5990 13 Jan, 2014 [facility] [place] [facility] [address] [id number] [place] [address]- [address]63 Jan, 2014 [facility] [place] [facility] [address] [id number] [place] [address]- 8946 Jan, 2014 [facility] [place] [facility] [address] [id number] [place] [address] 7154 Jan, 2014 [facility] [place] [facility] [address] [id number] [place] [address]- 2670 Jan, [facility] [place] [facility] [address] [facility] [id number] [place] [address] 6[address] Jan, [facility] [place] [facility] [address] [facility] [id number] [place] [address]- 2120 Jan, 2014 [facility] [place] [facility] [address] [id number] [place] [address]- 6341 Jan, 2014 [facility] [place] [facility] [address] [id number] [place] [address]- 4156 Jan, 2014 [facility] [place] [facility] [address] [facility] [id number] [place] [address]- 0906 Jan, 2014 [facility] [place] [facility] [address] [id number] [place] [address]- 8455 Jan, 2014 [facility] [place] [facility] [address] [id number] [place] [address]- 5831 Jan, 2014 [facility] [place] [facility] [address] [id number] [place] [address]- 8232 Jan, 2014 [facility] [place] [facility] [address] [facility] [id number] [place] [address]- 0446 Jan, 2014 [facility] [place] [facility] [address] [facility] [id number] [place] [address]- 8493 Jan, [facility] [place] [facility] [address] [id number] [place] [address]- 9837 Dec, [facility] [place] [facility] [address] [id number] [place] [address]- 5002 Dec, [facility] [place] [facility] [address] [id number] [place] [address]- 7054 Dec, [facility] [place] [facility] [address] [id number] [place] [address]- 1802 Dec, [facility] [place] [facility] [address] [id number] [place] [address]- 9168 Nov, [facility] [place] [facility] [address] [id number] [place] [address]- 3550 Nov, [facility] [place] [facility] [address] [id number] [place] [address]- 5309 Nov, [facility] [place] [facility] [address] [id number] [place] [address]- 7782 Nov, [facility] [place] [facility] [address] [id number] [place] [address]- 2034 Nov, [facility] [place] [facility] [address] [id number] [place] [address]- 1980 Nov, [facility] [place] [facility] [address] [id number] [place] [address]- 5899 Nov, [facility] [place] [facility] [address] [id number], [place] [address] 9[address] Oct, [facility] [place] [facility] [address] [id number] [place] [address]- 3454 Oct, [facility] [place] [facility] [address] [id number] [place] [address]- 5484 Oct, [facility] [place] [facility] [address] [id number] [place] [address]- 2861 Oct, [facility] [place] [facility] [address] [id number] [place] [address]- 6689 Oct, [facility] [place] [facility] [address] [id number] [place] [address]- 6193 Oct, [facility] [place] [facility] [address] [id number] [place] [address]- 6172 Oct, [facility] [place] [facility] [address] [id number] [place] [address]- 9515 Oct, [facility] [place] [facility] [address] [id number] [place] [address]- 8630 Oct, [facility] [place] [facility] [address] [id number] [place] [address]- 5338 Oct, [facility] [place] [facility] [address] [id number] [place] [address]- 1435 Oct, [facility] [place] [facility] [address] [id number] [place] [address]- 9149 Oct, [facility] [place] [facility] [address] [id number] [place] [address]- 3627 Sep, [facility] [place] [facility] [address] [id number] [place] [address]- 9504 Sep, [facility] [place] [facility] [address] [facility] [id number] [place] [address]- 1940 Sep, [facility] [place] [facility] [address] [id number] [place] [address]- 6332 Sep, [facility] [place] [facility] [address] [id number] [place] [address]- 4301 Jul, [facility] [place] [facility] [address] [id number] [place] [address]- 2178 Jul, [facility] [place] [facility] [address] [id number] [place] [address]- 6018 Jul, [facility] [place] [facility] [address] [id number] [place] [address]- 4405 Jul, [facility] [place] [facility] [address] [id number] [place] [address]- 5095 Jun, [facility] [place] [facility] [address] [id number] [place] [address]- 9710 Jun, [facility] [place] [facility] [address] [id number] [place] [address]- 7853 Jun, [facility] [place] [facility] [address] [id number] [place] [address]- 3174 Jun, [facility] [place] [facility] [address] [id number] [place] [address]- 9706 May, [facility] [place] [facility] [address] [id number] [place] [address]- 5363 May, [facility] [place] [facility] [address] [id number] [place] [address]- 5371 April, [facility] [place] [facility] [address] [id number] [place] [address]- 4970 April, [facility] [place] [facility] [address] [id number] [place] [address]- 1454 April, [facility] [place] [facility] [address] [id number] [place] [address]- 9000 April, [facility] [place] [facility] [address] [id number] [place] [address]- 0731 April, [facility] [place] [facility] [address] [id number] [place] [address]- 3709 April, [facility] [place] [facility] [address] [id number] [place] [address]- 3995 April, [facility] [place] [facility] [address] [id number] [place] [address]33 April, [facility] [place] [facility] [address] [id number] [place] [address]- 2876 April, [facility] [place] [facility] [address] [id number] [place] [address]- 8956 Mar, [facility] [place] [facility] [address] [id number] [place] [address]- 0197 Mar, [facility] [place] [facility] [address] [id number] [place] [address]- 0441 Mar, [facility] [place] [facility] [address] [id number] [place] [address]- 5060 Mar, [facility] [place] [facility] [address] [id number] [place] [address]- 3664 Jan, [facility] [place] [facility] [address] [id number] [place] [address]- 4713 Jan, [facility] [place] [facility] [address] [id number] [place] [address]- 4947 Jan, [facility] [place] [facility] [address] [facility] [id number] [place] [address]- 4085 Jan, [facility] [place] [facility] [address] [id number] [place] [address]- 5366 Jan, [facility] [place] [facility] [address] [id number] [place] [address]- 1763 Jan, [facility] [place] [facility] [address] [facility] [id number] [place] [address]- 1515 Jan, [facility] [place] [facility] [address] [id number] [place] [address]- 2997 Jan, [facility] [place] [facility] [address] [id number] [place] [address]- 6647 Jan, [facility] [place] [facility] [address] [id number] [place] [address]- 3258 Jan, [facility] [place] [facility] [address] [id number] [place] [address]- 7648 Jan, [facility] [place] [facility] [address] [facility] [id number] [place] [address]- 8792 Jan, [facility] [place] [facility] [address] [id number] [place] [address]- 4939 Dec, [facility] [place] [facility] [address] [id number] [place] [address]- 7745 Dec, [facility] [place] [facility] [address] [id number] [place] [address]- 2296 Dec, [facility] [place] [facility] [address] [id number] [place] [address]- 1387 Dec, [facility] [place] [facility] [address] [id number] [place] [address]- 7215 Nov, [facility] [place] [facility] [address] [id number] [place] [address]- 6561 Nov, [facility] [place] [facility] [address] [id number] [place] [address]- 6633 Nov, [facility] [place] [facility] [address] [id number] [place] [address]- 2565 Nov, [facility] [place] [facility] [address] [id number] [place] [address]- 0505 Oct, [facility] [place] [facility] [address] [id number] [place] [address]- 9634 Oct, [facility] [place] [facility] [address] [id number] [place] [address]- 2383 Sep, [facility] [place] [facility] [address] [id number] [place] [address]- 1560 Sep, [facility] [place] [facility] [address] [id number] [place] [address]- 4465 Jul, [facility] [place] [facility] [address] [id number] [place] [address]- 8769 Jul, [facility] [place] [facility] [address] [id number] [place] [address]- 4365 Jun, [facility] [place] [facility] [address] [id number] [place] [address]- 3849 Jun, [facility] [address] [id number] [place] [address]- 6235 Jun, [facility] [place] [facility] [address] [id number] [place] [address]- 8406 May, [facility] [place] [facility] [address] [id number] [place] [address]- 7839 May, [facility] [place] [facility] [address] [id number] [place] [address]- 7253 May, [facility] [address] [id number] [place] [address]- 8864 May, [facility] [place] [facility] [address] [id number] [place] [address]- 3188 May, [facility] [place] [facility] [address] [id number] [place] [address]- 1712 April, [facility] [place] [facility] [address] [id number] [place] [address]- 7328 April, [facility] [address] [id number] [place] [address]- 2736 April, [facility] [place] [facility] [address] [id number] [place] [address]- 7777 April, [facility] [place] [facility] [address] [id number] [place] [address]- 3210 April, [facility] [place] [facility] [address] [id number] [place] [address]- 5903 April, [facility] [place] [facility] [address] [id number] [place] [address]- 5388 Mar, [facility] [place] [facility] [address] [id number] [place] [address]- 2972 Mar, [facility] [place] [facility] [address] [id number] [place] [address]- 0362 Jan, [facility] [place] [facility] [address] [id number] [place] [address]- 5792 Jan, [facility] [address] [id number] [place] [address]- 0916 Jan, [facility] [place] [facility] [address] [id number] [place] [address]- 7646 Jan, [facility] [address] [id number] [place] [address]- 5436 Jan, 2012 [facility] [place] [facility] [address] [id number] [place] [address] 2547 Jan, [facility] [address] [id number] [place] [address]- 2196 Jan, [facility] [place] [facility] [address] [id number] [place] [address]- 6166 Jan, [facility] [address] [id number] [place] [address] 2546 Jan, [facility] [address] [id number] [place] [address]- 6528 Jan, [facility] [place] [facility] [address] [facility] [id number] [place] [address]- 7819 Jan, [facility] [address] [facility] [id number] [place] [address]- 5147 Dec, [facility] [address] [id number] [place] [address]- 2710 Nov, [facility] [address] [id number] [place] [address] 2546 Nov, [facility] [place] [facility] [address] [id number] [place] [address] 2546 Nov, [facility] [place] [facility] [address] [facility] [id number] [place] [address] [address], [facility] [place] [facility] [address] [facility] [id number] [place] [address]- 1341 Nov, [facility] [place] [facility] [address] [id number] [place] [address]- 0191 Nov, [facility] [place] [facility] [address] [id number] [place] [address]- 3105 Nov, [facility] [place] [facility] [address] [id number] [place] [address]- 4895 Nov, [facility] [place] [facility] [address] [id number] [place] [address]- 8765 Nov, [facility] [place] [facility] [address] [id number] [place] [address]- 7970 Nov, [facility] [place] [facility] [address] [id number] [place] [address]- 0112 Nov, [facility] [place] [facility] [address] [facility] [id number] [place] [address]- 2567 Nov, [facility] [place] [facility] [address] [id number] [place] [address]- 7612 Nov, [facility] [place] [facility] [address] [id number] [place] [address]- 7771 Oct, [facility] [place] [facility] [address] [id number], [place] [address]- 1206 Oct, [facility] [place] [facility] [address] [id number], [place] [address]- 5809 Oct, [facility] [place] [facility] [address] [id number], [place] [address]- 5736 Sep, [facility] [place] [facility] [address] [id number] [place] [address]- 3385 Sep, [facility] [place] [facility] [address] [id number], [place] [address]- 2925 Sep, [facility] [place] [facility] [address] [facility] [id number], [place] [address]- 5390 Sep, [facility] [place] [facility] [address] [id number] [place] [address]- 4664 27 Aug, 2012 [facility] [address] [id number] [place] [address]- 6991 20 Aug, 2012 [facility] [place] [facility] [address] [id number] [place] [address]- 6915 24 Jul, 2012 [facility] [place] [facility] [address] [id number] [place] [address]- 1843 May, [facility] [place] [facility] [address] [id number] [place] [address]- 4665 May, [facility] [place] [facility] [address] [id number] [place] [address]- 3859 14 May, 2012 [facility] [place] [facility] [address] [id number] [place] [address]- 4891 April, [facility] [address] [id number] [place] [address]- 0489 Mar, [facility] [place] [facility] [address] [id number] [place] [address]- 2514 Mar, [facility] [place] [facility] [address] [id number] [place] [address]- 7647 03 Mar, 2012 [facility] [place] [facility] [address] [id number] [place] [address]- 8997 Jan, [facility] [place] [facility] [address] [id number] [place] [address]- 3537 Jan, [facility] [place] [facility] [address] [id number] [place] [address]- 4771 Jan, [facility] [place] [facility] [address] [id number] [place] [address]- 9184 Dec, [facility] [place] [facility] [address] [id number] [place] [address]- 5733 Dec, [facility] [place] [facility] [address] [id number] [place] [address]- 2547 Dec, [facility] [place] [facility] [address] [id number] [place] [address]- 2699 Dec, [facility] [place] [facility] [address] [id number] [place] [address]- 3316 28 Nov, 2011 [facility] [place] [facility] [address] [id number] [place] [address]- 9729 15 Nov, 2011 [facility] [place] [facility] [address] [id number] [place] [address]- 1387 Nov, [facility] [place] [facility] [address] [id number] [place] [address]- 2211 Oct, [facility] [place] [facility] [address] [id number] [place] [address]- 8452 31 Sep, 2011 [facility] [place] [facility] [address] [id number] [place] [address]- 4712 26 Sep, 2011 [facility] [place] [facility] [address] [id number] [place] [address]- 5184 Sep, [facility] [place] [facility] [address] [id number] [place] [address]- 3963 15 Nov, 2010 [facility] [place] [facility] [address] [id number] [place] [address]- 1876 23 Oct, 2010 [facility] [place] [facility] [address] [id number] [place] [address]- 9292 19 Oct, 2010 [facility] [place] [facility] [address] [id number] [place] [address]- 7416 18 Oct, 2010 [facility] [place] [facility] [address] [id number] [place] [address]- 7318 16 Oct, 2010 [facility] [place] [facility] [address] [id number] [place] [address]- 5169 11 Sep, 2010 [facility] [place] [facility] [address] [id number] [place] [address]- 3240 April, [facility] [place] [facility] [address] [id number], [place] [address]- 9559 Nov, [facility] [place] [address] [id number] [address]137 Nov, [facility] [place] [address] [id number], [place] [address] Nov, [facility], [place], [facility] [id number] [address] Nov, [facility], [place], [facility] [id number] [address] Nov, [facility], [place], [facility] [id number] [address] Oct, [facility], [place], [facility] [id number] [address] Oct, [facility], [place], [facility] [id number], [place] [address] Sep, [facility], [place], [facility] [address] [id number], [place] [address] Jan, IMMUNIZATIONS No Known Immunizations SOCIAL HISTORY Never Assessed REASON FOR VISIT Controlled Med Refill PLAN OF CARE VITAL SIGNS MEDICATIONS Medication Instructions Dosage Frequency Start Date End Date Duration Status Clonazepam 0.5 MG Orally Once a day at bedtime 1 tablet at bedtime 28 days Active RESULTS No Results PROCEDURES No [...] History Intertrechanteric hip fx 04/27/16 Hospitalization History [facility] ([facility]patient [facility]) Hx of 3 inpatient psych treatments in past in [place] oct 2016 [facility]
--- OUTSIDE RECORDS SUMMARY | 2018-08-20 12:51 | XMS REPORT ---
Author Author WOLF AGUIRRE [facility] Address [address] [place] [address] Care Team Providers Care Pharmacy Tech Name Role Phone WOLF AGUIRRE Unavailable PROBLEMS Type Condition ICD9-CM Code NGH03-SM Code Onset Dates Condition Status SNOMED Code Problem Sundowning F05 Active 527784321 Problem Constipation, unspecified constipation type K59.00 Active 97700102 Problem Reactive depression F32.9 Active 35658107 Problem Vascular dementia with behavior disturbance F01.51 Active 501574992447175 Problem Insomnia, unspecified type G47.00 Active 528655762 Problem Generalized anxiety disorder F41.1 Active 62331762 Problem Other chronic pain G89.29 Active 34587320 Problem Severe episode of recurrent major depressive disorder, without psychotic features F33.2 Active 04874993 Problem Slow transit constipation K59.01 Active 66190359 Problem 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 Active 133187796 Problem Obsessive thinking F42.8 Active 82649850 Problem Failure to thrive in adult R62.7 Active 074885955 Problem Dysthymic disorder F34.1 Active 14223560 Problem Hypertension I10 Active 24058777 Problem Mood disorder F39 Active 28102578 Problem Irritable bowel syndrome with diarrhea K58.0 Active 605126336 Problem Oropharyngeal dysphagia R13.12 Active 58526378 Problem 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 Active 42000829 Problem Other chronic pain G89.29 Active 90117287 Problem Primary insomnia F51.01 Active 1147127 Problem Poor appetite R63.0 Active 08287764 Problem 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 Active 582452536239502 Problem Iron deficiency anemia secondary to inadequate dietary iron intake D50.8 Active 610115742 Problem Coarse tremors G25.2 Active 15867714 Problem Gastroesophageal reflux disease without esophagitis K21.9 Active 016287574 Problem Essential hypertension I10 Active 24922604 ALLERGIES No Information ENCOUNTERS Encounter Location Date Diagnosis [facility] [address] [id number] Aug, [facility] [address] [address] Aug, [facility] [address] [address] Jul, [facility] [id number] [place] [address] 09742- 4973 Jun, [facility] [address] [place] [address] 01505- 5202 Jun, [facility] [address] [id number] Jun, Left lower quadrant pain R10.32 and Left leg pain M79.605 [facility] [id number] [place] [address] 62382- 3458 Jun, [facility] [address] [place] [id number] Jun, Pain in left hip M25.552 ; Pain in right hip M25.551 and Primary insomnia F51.01 [facility] [address] [address] Jun, [facility] [address] [id number] May, [facility] [address] [address] 6[address] May, [facility] [address] [address] 7900 May, [facility] [address] [place] [id number] May, Mood disorder F39 [facility] [address] [address] 8888 May, [facility] [address] [address] April, [facility] [address] [id number] April, Generalized anxiety disorder F41.1 ; Obsessive thinking F42.8 and Insomnia , unspecified type G47.00 [facility] [address] [address] April, [facility] [id number] [place] [address] 719492- 6463 April, Rash of face R21 [facility] [id number] [place] [address] 47742- 5960 Mar, [facility] [id number] [place] [address] 24512- 5873 Mar, [facility] [id number] [place] [address] 529821- 9099 Mar, [facility] [id number] [place] [address] 87325- 3901 Jan, [facility] [address] [place] [address] 79325- 6699 Jan, [facility] [address] [place] [id number] Jan, Constipation, unspecified constipation type K59.00 and Other chronic pain G89.29 [facility] [address] [address] Jan, [facility] [address] [id number] Jan, Obsessive thinking F42.8 and Coarse tremors G25.2 [facility] [id number] [place] [id number] Jan, [facility] [id number] [place] [address] [id number] Jan, [facility] [address] [id number] Jan, Generalized anxiety disorder F41.1 ; Obsessive thinking F42.8 ; Callus of foot L84 and 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 [facility] [id number] [place] [address] 55225- 6807 Dec, Generalized anxiety disorder F41.1 and Severe episode of recurrent major depressive disorder, without psychotic features F33.2 [facility] [id number] [place] [address] 08752- 0691 Nov, [facility] [id number] [place] [address] 92211- 7557 Nov, [facility] [address] [id number] Nov, Oropharyngeal dysphagia R13.12 ; Generalized anxiety disorder F41.1 and 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 [facility] [id number] [place] [address] 15274- 1525 Nov, [facility] [place] [facility] [address] [id number] Nov, [facility] [id number] [place] [address] 65896- 2894 Nov, [facility] [id number] [place] [address] 12485- 8343 Nov, [facility] [id number] [place] [address] 48105- 7674 Oct, Constipation, unspecified constipation type K59.00 and Mood disorder F39 [facility] [id number] [place] [address] 33151- 1362 Oct, [facility] [id number] [place] [address] [phone] Sep, [facility] [id number] [place] [address] [phone] Sep, [facility] [id number] [place] [address] [id number] Sep, [facility] [address] [place] [id number] Sep, [facility] [address] [phone] Sep, Generalized abdominal pain R10.84 [facility] [address] [address]- 07[address] Sep, [facility] [place] [facility] [id number] [address] Sep, Generalized anxiety disorder F41.1 and Primary insomnia F51.01 [facility] [place] [facility] [id number] [id number] Aug, [facility] [place] [facility] [id number] [place] [id number] Aug, Generalized anxiety disorder F41.1 [facility] [id number] [address] 8[address] Jul, [facility] [address] [id number] Jul, Obsessive thinking F42.8 [facility] [address] [address] 0[address] Jul, Generalized anxiety disorder F41.1 and Irritable bowel syndrome with diarrhea K58.0 [facility] [place] [facility] [id number] [id number] Jul, Generalized anxiety disorder F41.1 [facility] [place] [facility] [id number] [id number] Jun, Generalized anxiety disorder F41.1 [facility] [id number] [address] 6[address] May, [facility] [address] [id number] May, Generalized anxiety disorder F41.1 ; Irritable bowel syndrome with diarrhea K58.0 and Coarse tremors G25.2 [facility] [id number] [address]- 0111 April, [facility] [address] [address] 4440 April, [facility] [address] [address]- 6800 April, [facility] [address] [address]- 76[address] Mar, [facility] [address] [id number] Mar, Severe episode of recurrent major depressive disorder, without psychotic features F33.2 and Pain in left hip M25.552 [facility] [address] [place] [address] 05940- 4067 Mar, [facility] [id number] [place] [address] 40393- 9004 Mar, [facility] [id number] [place] [address] 18404- 9466 Mar, [facility] [id number] [place] [address] 71832- 2498 Mar, Pain in right hip M25.551 and Self-care deficit in patient living alone R46.89 [facility] [address] [address] Jan, Other chronic pain G89.29 ; Pain in left hip M25.552 and Slow transit constipation K59.01 [facility] [address] [place] [address] 71566- 1730 Jan, [facility] [address] [address]- 8687 Dec, Other depression F32.89 ; Constipation, unspecified constipation type K59.00 and Insomnia, unspecified type G47.00 [facility] [address] [address]- 8492 Nov, Reactive depression F32.9 ; Chronic idiopathic constipation K59.04 ; Generalized anxiety disorder F41.1 ; Coarse tremors G25.2 ; Gastroesophageal reflux disease without esophagitis K21.9 ; Dysthymic disorder F34.1 ; Vitamin deficiency, unspecified E56.9 and Primary insomnia F51.01 [facility] [id number] [place] [address] 64379- 6898 Nov, [facility] [address] 99631- 3214 Nov, [facility] [address] 18228- 4275 Nov, [facility] [address] 80011- 6787 Nov, Reactive depression F32.9 ; Essential hypertension I10 ; Generalized anxiety disorder F41.1 ; 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 ; Pain in right hip M25.551 ; Other chronic pain G89.29 ; Chronic idiopathic constipation K59.04 ; Primary insomnia F51.01 ; Coarse tremors G25.2 ; Gastroesophageal reflux disease without esophagitis K21.9 ; Iron deficiency anemia secondary to inadequate dietary iron intake D50.8 and Vitamin deficiency, unspecified E56.9 [facility] [address] 01420- 3808 Oct, [facility] [id number] [place] [address] 71725- 6115 Oct, [facility] [id number] [place] [address] 99178- 0810 18 Oct, 2016 [facility] [id number] [place] [address] 66411- 2125 16 Oct, 2016 Generalized anxiety disorder F41.1 ; Poor appetite R63.0 ; Dehydration E86.0 and Failure to thrive in adult R62.7 [facility] [id number] [place] [address] 41359- 4332 07 Oct, 2016 Generalized anxiety disorder F41.1 and Failure to thrive in adult R62.7 [facility] [address] [place] [address]- 3606 Oct, [facility] [id number] [place] [address] 44268- 2905 Oct, [facility] [id number] [place] [address] 70866 -6352 Sep, Vaginal discharge N89.8 and Acute cystitis with hematuria N30.01 [facility] [id number] [place] [address] 66680- 3941 Sep, [facility] [id number] [place] [address] 49890- 9707 Sep, [facility] [id number] [place] [address] 55876- 6612 Sep, Dysthymic disorder F34.1 ; Acute vaginitis N76.0 ; Dysuria R30.0 and Vaginal yeast infection B37.3 [facility] [id number] [place] [address] 68935- 5191 Aug, [facility] [id number] [place] [address] 68640- 8205 Aug, [facility] [id number] [place] [address] 37928 -2759 Aug, Foul smelling urine R82.90 ; Rapid heart rate R00.0 and Flatulence R14.3 [facility] [address] [place] [address] 53648- 5988 Aug, [facility] [id number] [place] [address] 57162- 8188 Jul, Constipation, unspecified constipation type K59.00 ; Weak R53.1 ; Poor appetite R63.0 ; Coronary artery disease involving washoe heart without angina pectoris, unspecified vessel or lesion type I25.10 ; Fatigue, unspecified type R53.83 ; Urinary incontinence, unspecified type R32 and Insomnia, unspecified type G47.00 [facility] [id number] [place] [address] 39303- 0929 Jul, [facility] [id number] [place] [address] 58339- 0768 Jun, Dysuria R30.0 [facility] [id number] [place] [address] 85015- 2382 Jun, [facility] [id number] [place] [address] 45263- 4509 Jun, Urinary tract infection, site not specified N39.0 ; Acute vaginitis N76.0 and Diarrhea, unspecified type R19.7 [facility] [id number] [place] [address] 41417- 0439 May, [facility] [id number] [place] [address] 08383- 5276 April, [facility] [address] [id number] April, Encounter for dental examination Z01.20 [facility] [id number] [place] [address] 13218- 0322 April, [facility] [id number] [place] [address] 14935- 6710 April, Tremor R25.1 and Episodic tension-type headache, not intractable G44.219 [facility] [id number] [place] [address] 07066- 6070 Mar, [facility] [id number] [place] [address] 54749- 6008 Jan, Mood disorder F39 [facility] [id number] [place] [address] 62228 -4230 Jan, [facility] [id number] [place] [address] 04135- 5189 Jan, [facility] [id number] [place] [address] 24727- 6555 Jan, [facility] [address] [address]- 7391 Jan, [facility] [id number] [place] [address] 77240- 2537 Jan, [facility] [address] [place] [address] 02223- 1272 Jan, [facility] [id number] [place] [address] 95015 -4029 Dec, Acute diarrhea R19.7 [facility] [id number] [place] [address] 12209- 2967 Dec, [facility] [id number] [place] [address] 23691- 1686 Dec, [facility] [id number] [place] [address] 54755- 3248 Dec, [facility] [id number] [place] [address] 43915 -5755 Dec, N&V (nausea and vomiting) R11.2 [facility] [id number] [place] [address] 44270- 5321 Dec, Generalized anxiety disorder F41.1 [facility] [id number] [place] [address] 65012- 4381 Dec, Generalized anxiety disorder F41.1 [facility] [address] [place] [address] 42440- 6606 Nov, Post concussion syndrome F07.81 [facility] [id number] [place] [address] 78746- 3620 Nov, Generalized anxiety disorder F41.1 [facility] [address] [place] [address] 05723- 3796 Nov, [facility] [address] [place] [address] 26888- 2623 Nov, Generalized anxiety disorder F41.1 [facility] [address] [place] [address] [phone] Oct, Dental caries K02.9 [facility] [id number] [place] [address] 49031- 0676 Oct, [facility] [address] [place] [address] [id number] Oct, Dental examination Z01.20 [facility] [address] [id number] Oct, Encounter for dental examination Z01.20 [facility] [address] 88671- 6787 Oct, CAD (coronary artery disease) I25.10 [facility] [id number] [place] [address] 39924- 3233 Sep, Generalized anxiety disorder F41.1 [facility] [id number] [place] [address] 92819- 0343 Sep, [facility] [id number] [place] [address] 90953- 6087 Sep, Rash and other nonspecific skin eruption R21 and Yeast vaginitis B37.3 [facility] [id number] [place] [address] 17384- 5234 Sep, Generalized anxiety disorder F41.1 [facility] [id number] [place] [address] 34081- 0521 Aug, Insect bites 919.4 and Hemorrhoids 455.6 [facility] [id number] [place] [address] 25585- 2931 Aug, Generalized anxiety disorder 300.02 [facility] [address] 56098- 0487 08 Aug, 2015 [facility] [id number] [place] [address] 28811- 7164 Aug, [facility] [address] [address]- 1473 Aug, Generalized anxiety disorder 300.02 ; No condition on [place] II V71.09 ; Heart problem 429.9 and Hypertension 401.9 [facility] [id number] [place] [address] 51898- 6220 Aug, [facility] [id number] [place] [address] 26000- 1127 Jul, [facility] [id number] [place] [address] 80244- 9596 Jul, [facility] [id number] [place] [address] 38276- 6096 Jul, [facility] [id number] [place] [address] 87050- 0315 Jul, [facility] [id number] [place] [address] 35048- 3478 Jul, Rash 782.1 [facility] [id number] [place] [address] 79135- 0347 Jul, UTI (urinary tract infection) 599.0 [facility] [id number] [place] [address] 03128- 0319 Jul, [facility] [id number] [place] [address] 22590- 7384 Jun, Dysthymia 300.4 and Anxiety 300.00 [facility] [address] [place] [address] 36450- 5803 Jun, 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 [facility] [id number] [place] [address] 64285- 2740 May, [facility] [id number] [place] [address] 47767- 9792 May, [facility] [id number] [place] [address] 61639- 5087 May, Unspecified breast screening V76.10 [facility] [address] [id number] [id number] May, Dental examination V72.2 [facility] [address] [id number] [address]- 0406 April, [facility] [address] [id number][place] [address]- 2546 April, [facility] [address] [id number] [id number] April, Dental examination V72.2 [facility] [address] [id number] [id number] April, Dental examination V72.2 [facility] [address] [id number] [address]- 1656 Mar, [facility] [address] [id number][place] [address]- 0196 Mar, [facility] [address] [id number][place] [address]- 0484 Jan, [facility] [address] [id number] 359005- 4396 25 Jan, 2015 [facility] [address] [facility] [id number]- 0344 18 Jan, 2015 [facility] [address] [id number] [address]- 3926 18 Jan, 2015 [facility] [address] [id number][place] [address]- 5526 16 Jan, 2015 [facility] [address] [id number][place] [address]- 8046 16 Jan, 2015 [facility] [address] [id number][place] [address]- 0516 13 Jan, 2015 [facility] [address] [id number][place] [address]- 1665 13 Jan, 2015 [facility] [place] [facility] [address] [id number] [place] [address]- 3653 Jan, [facility] [place] [facility] [address] [id number] [place] [address]- 8970 Jan, [facility] [place] [facility] [address] [id number] [place] [address]- 4554 Jan, [facility] [place] [facility] [address] [id number] [place] [address]- 2323 Jan, [facility] [place] [facility] [address] [id number] [place] [address]- 3766 Jan, [facility] [place] [facility] [address] [id number] [place] [address]- 7985 Jan, [facility] [place] [facility] [address] [id number] [place] [address] Jan, [facility] [place] [facility] [address] [id number] [place] [address] Jan, 2014 [facility] [place] [facility] [address] [id number] [place] [address] Jan, [facility] [place] [facility] [address] [facility] [id number] [place] [address] Jan, [facility] [place] [facility] [address] [id number] [place] [address] Jan, 2014 [facility] [place] [facility] [address] [id number] [place] [address] Jan, 2014 [facility] [place] [facility] [address] [id number] [place] [address] Jan, [facility] [place] [facility] [address] [id number] [place] [address] [address] Jan, [facility] [place] [facility] [address] [id number] [place] [address] Dec, [facility] [place] [facility] [address] [id number] [place] [address] Dec, [facility] [address] [id number] [place] [address] Dec, [facility] [place] [facility] [address] [id number] [place] [address] Dec, [facility] [address] [id number] [place] [address] Nov, [facility] [place] [facility] [address] [id number] [place] [address] Nov, [facility] [address] [id number] [place] [address] Nov, [facility] [place] [facility] [address] [id number] [place] [address] Nov, [facility] [place] [facility] [address] [id number] [place] [address] Nov, [facility] [address] [id number] [place] [address] Nov, [facility] [place] [facility] [address] [id number] [place] [address] Nov, [facility] [address] [id number] [place] [address] Oct, [facility] [place] [facility] [address] [id number] [place] [address] Oct, [facility] [place] [facility] [address] [id number] [place] [address] Oct, [facility] [place] [facility] [address] [id number] [place] [address] Oct, [facility] [place] [facility] [address] [id number] [place] [address] Oct, [facility] [place] [facility] [address] [id number] [place] [address] Oct, [facility] [place] [facility] [address] [id number] [place] [address] 9597 Oct, [facility] [place] [facility] [address] [id number] [place] [address] 4817 Oct, [facility] [place] [facility] [address] [id number] [place] [address] Oct, [facility] [place] [facility] [address] [id number] [place] [address]385 Oct, [facility] [place] [facility] [address] [id number] [place] [address] 4699 Oct, [facility] [place] [facility] [address] [id number] [place] [address] 1090 Oct, [facility] [place] [facility] [address] [id number] [place] [address] 115[address] Sep, [facility] [place] [facility] [address] [id number] [place] [address] 3539 Sep, [facility] [place] [facility] [address] [id number] [place] [address]- 7833 Sep, [facility] [place] [facility] [address] [id number] [place] [address] 8288 Sep, [facility] [place] [facility] [address] [id number] [address] Jul, [facility] [place] [facility] [address] [id number][place] [address] Jul, [facility] [place] [facility] [address] [id number] [place] [address] 6348 Jul, [facility] [place] [facility] [address] [id number] [place] [address] 8053 Jul, [facility] [place] [facility] [address] [id number] [place] [address] 4271 Jun, [facility] [place] [facility] [address] [id number] [address] Jun, [facility] [address] [id number] [place] [address] 7447 Jun, [facility] [place] [facility] [address] [id number] [place] [address]- 6576 Jun, [facility] [place] [facility] [address] [id number] [place] [address]- 2991 May, [facility] [place] [facility] [address] [id number] [place] [address] 5503 May, [facility] [place] [facility] [address] [id number] [place] [address] 8903 April, [facility] [place] [facility] [address] [id number] [place] [address]- 6234 April, [facility] [address] [id number] [place] [address] 3484 April, [facility] [place] [facility] [address] [id number] [place] [address] 3362 April, [facility] [place] [facility] [address] [id number] [place] [address] 5565 April, [facility] [place] [facility] [address] [id number] [place] [address] 8141 April, [facility] [place] [facility] [address] [id number] [place] [address] 7265 April, [facility] [place] [facility] [address] [id number] [place] [address] 1877 April, [facility] [place] [facility] [address] [id number] [place] [address]- 0875 April, [facility] [place] [facility] [address] [id number] [place] [address]- 1487 Mar, [facility] [place] [facility] [address] [id number] [place] [address] 5640 Mar, [facility] [place] [facility] [address] [id number] [place] [address]- 8445 Mar, [facility] [place] [facility] [address] [id number] [place] [address]- 4128 Mar, [facility] [place] [facility] [address] [id number] [place] [address] 7904 Jan, [facility] [place] [facility] [address] [id number] [place] [address]- 0347 Jan, [facility] [place] [facility] [address] [id number] [place] [address]- 5978 Jan, [facility] [place] [facility] [address] [id number] [place] [address]- 2919 Jan, [facility] [place] [facility] [address] [id number] [place] [address] 5449 Jan, [facility] [place] [facility] [address] [id number] [place] [address]- 8062 Jan, [facility] [place] [facility] [address] [id number] [place] [address]- 4123 Jan, [facility] [place] [facility] [address] [id number] [place] [address]- 1072 Jan, [facility] [place] [facility] [address] [id number] [place] [address]- 1240 Jan, [facility] [place] [facility] [address] [id number] [place] [address]- 9281 Jan, [facility] [place] [facility] [address] [id number] [place] [address]- 7632 Jan, [facility] [place] [facility] [address] [id number] [place] [address]- 2461 Jan, [facility] [place] [facility] [address] [id number] [place] [address]- 7181 Dec, [facility] [place] [facility] [address] [id number] [place] [address]- 2546 Dec, [facility] [place] [facility] [address] [id number] [place] [address]- 4985 Dec, [facility] [place] [facility] [address] [id number] [place] [address]- 0684 Dec, [facility] [place] [facility] [address] [id number] [place] [address]- 9820 Nov, [facility] [place] [facility] [address] [id number] [place] [address] Nov, [facility] [place] [facility] [address] [id number] [place] [address]- 0720 Nov, [facility] [place] [facility] [address] [id number] [place] [address]- 3585 Nov, [facility] [place] [facility] [address] [id number] [place] [address] Oct, [facility] [place] [facility] [address] [id number] [place] [address]- 0350 Oct, [facility] [place] [facility] [address] [id number] [place] [address]- 1690 Sep, [facility] [place] [facility] [address] [id number] [place] [address]- 0931 Sep, [facility] [place] [facility] [address] [id number] [place] [address]- 4439 Jul, [facility] [place] [facility] [address] [id number] [place] [address]- 0157 Jul, [facility] [place] [facility] [address] [id number] [place] [address]- 6994 Jun, [facility] [place] [facility] [address] [id number] [place] [address]- 8381 Jun, [facility] [place] [facility] [address] [id number] [place] [address]- 9080 Jun, [facility] [place] [facility] [address] [id number] [place] [address]805 26 May, 2013 [facility] [address] [id number] [place] [address]- 6231 May, [facility] [address] [id number] [place] [address]- 5618 17 May, 2013 [facility] [address] [id number] [place] [address]- 1078 May, [facility] [address] [id number] [place] [address]- 2707 May, [facility] [address] [id number] [place] [address]- 3085 April, [facility] [address] [id number] [place] [address]- 8120 April, [facility] [address] [id number] [place] [address]- 3950 April, [facility] [address] [id number] [place] [address]- 5695 April, [facility] [address] [id number] [place] [address]- 1380 April, [facility] [address] [id number] [place] [address]- 7641 April, [facility] [address] [id number] [place] [address]- 2272 Mar, [facility] [address] [id number] [place] [address]- 8566 15 Mar, 2013 [facility] [address] [id number] [place] [address]- 3813 28 Jan, 2013 [facility] [address] [id number] [place] [address]- 2546 Jan, [facility] [address] [id number] [place] [address]- 0364 Jan, [facility] [address] [id number] [place] [address]- 6203 Jan, [facility] [place] [facility] [address] [id number] [place] [address]- 3136 Jan, [facility] [place] [facility] [address] [id number] [place] [address]- 6176 Jan, [facility] [place] [facility] [address] [id number] [place] [address]- 7548 Jan, [facility] [place] [facility] [address] [id number] [place] [address]- 0046 Jan, [facility] [place] [facility] [address] [id number] [place] [address]- 0430 Jan, [facility] [address] [id number] [place] [address]- 6745 Jan, [facility] [place] [facility] [address] [id number] [place] [address]- 2364 Jan, [facility] [address] [id number] [place] [address]- 8647 Dec, [facility] [place] [facility] [address] [id number] [place] [address]- 6028 Nov, [facility] [place] [facility] [address] [id number] [place] [address]- 8163 Nov, [facility] [place] [facility] [address] [id number] [place] [address]- 3981 Nov, [facility] [place] [facility] [address] [id number] [place] [address]- 4702 Nov, [facility] [place] [facility] [address] [facility] [id number] [place] [address]- 8625 Nov, [facility] [place] [facility] [address] [facility] [id number] [place] [address]- 6315 Nov, [facility] [place] [facility] [address] [id number] [place] [address]- 2119 20 Nov, 2012 [facility] [address] [id number] [place] [address]- 6043 Nov, [facility] [place] [facility] [address] [id number] [place] [address]- 9206 Nov, [facility] [address] [id number] [place] [address]- 0977 18 Nov, 2012 [facility] [place] [facility] [address] [id number] [place] [address]- 4543 18 Nov, 2012 [facility] [address] [facility] [id number] [place] [address], [place] [address]- 5487 Nov, [facility] [address] [facility] [id number] [place] [address]- 4661 Nov, [facility] [address] [facility] [id number] [place] [address]- 6310 Oct, [facility] [address] [id number] [place] [address]- 8493 Oct, [facility] [place] [facility] [address] [facility] [id number] [place] [address]- 0518 Oct, [facility] [address] [facility] [id number] [place] [address]- 3504 Sep, [facility] [place] [facility] [address] [facility] [id number] [place] [address]- 2028 Sep, [facility] [place] [facility] [address] [facility] [id number] [address]- 0411 Sep, [facility] [place] [facility] [address] [facility] [id number] [place]21 10 Sep, 2012 [facility] [place] [facility] [address] [facility] [id number] [place] [address]- 6914 27 Aug, 2012 [facility] [place] [facility] [address] [facility] [id number] [place] [address]- 3198 Aug, [facility] [address] [id number] [place] [address]- 6610 Jul, [facility] [place] [facility] [address] [id number] [place] [address]- 3017 May, [facility] [place] [facility] [address] [id number] [place] [address]- 9648 May, [facility] [place] [facility] [address] [id number] [place] [address]- 0201 May, [facility] [place] [facility] [address] [id number] [place] [address]- 7485 April, [facility] [place] [facility] [address] [id number] [place] [address]- 7586 Mar, [facility] [place] [facility] [address] [id number] [place] [address]- 9913 Mar, [facility] [place] [facility] [address] [id number] [place] [address]- 6919 Mar, [facility] [place] [facility] [address] [id number] [place] [address]- 5671 Jan, [facility] [place] [facility] [address] [id number] [place] [address]- 0899 Jan, [facility] [place] [facility] [address] [id number] [place] [address]- 6281 Jan, [facility] [place] [facility] [address] [id number][place] [address]- 5111 Dec, [facility] [place] [facility] [address] [id number] [place] [address]- 7222 Dec, [facility] [place] [facility] [address] [id number] [place] [address]- 8686 Dec, [facility] [place] [facility] [address] [id number] [address]- 7936 Dec, [facility] [place] [facility] [address] [id number][place] [address]- 9764 28 Nov, 2011 [facility] [place] [facility] [address] [id number] [place] [address]- 3460 15 Nov, 2011 [facility] [place] [facility] [address] [id number] [place] [address]- 9516 03 Nov, 2011 [facility] [place] [facility] [address] [id number] [place] [address]- 5546 Oct, [facility] [place] [facility] [address] [id number] [place] [address]- 0997 31 Sep, 2011 [facility] [place] [facility] [address] [id number] [place] [address]- 0830 26 Sep, 2011 [facility] [place] [facility] [address] [id number] [place] [address]- 6871 13 Sep, 2011 [facility] [place] [facility] [address] [facility] [id number] [place] [address]- 3552 15 Nov, 2010 [facility] [place] [facility] [address] [id number] [place] [address]- 8782 23 Oct, 2010 [facility] [place] [facility] [address] [facility] [id number] [place] [address]- 3997 Oct, [facility] [place] [facility] [address] [facility] [id number] [place] [address]- 7869 18 Oct, 2010 [facility] [place] [facility] [address] [id number] [place] [address]- 0944 16 Oct, 2010 [facility] [place] [facility] [address] [id number] [place] [address]- 8720 11 Sep, 2010 [facility] [place] [facility] [address] [id number] [place] [address]- 2208 April, [facility] [place] [facility] [address] [id number] [place] [address]- 1692 29 Nov, 2009 [facility] [place] [facility] [address] [facility] [id number] [place] [address]- 8545 24 Nov, 2009 [facility] [place] [facility] [address] [id number] [address]- 8974 Nov, [facility] [id number] [address]- 6306 Nov, [facility] [id number], [place] [address]- 6701 Nov, [facility] [id number] 9949 Oct, [facility] [id number] 4036 Oct, [facility] [id number] [address]60 Sep, [facility] [id number], [place] [address]- 2666 Jan, IMMUNIZATIONS No Known Immunizations SOCIAL HISTORY Never Assessed REASON FOR VISIT Long Term PLAN OF CARE Activity Details Follow Up prn Reason: VITAL SIGNS MEDICATIONS Medication Instructions Dosage Frequency Start Date End Date Duration Status Melatonin 3 MG Orally Once a day 1 tablet at bedtime as needed with food 24h Active Tylenol Extra Strength 500 mg Orally every 6 hrs 1 tablet as needed 6h 15 Jan, 2018 Active Protonix 40 MG Orally Once a day 1 tablet 24h Active Folic Acid 1 MG Orally Once a day at bedime 1 tablet Active Pravastatin Sodium 20 mg Orally Once a day 1 tablet 24h Active Gabapentin 100 mg Orally 2 times a day 1 capsule 12h Jun, 30 day(s) Active Rivastigmine 4.6 MG/24HR APPLY ONE PATCH EXTERNALLY ONCE DAILY 30 Active Vitamin D-3 1000 UNIT Orally Once a day at bedtime 2 capsules Active Isopto Tears 0.5 % Ophthalmic every 6 hours as needed for PRN- dry eyes 1 drop in both eyes Active Mirtazapine 15 mg Orally Once a day 1 tablet at bedtime 24h Active Risperidone 2 MG Orally 2 times a day 1 tablet 12h Active Aspir-81 81 MG Orally Once a day 1 tablet 24h 07 Nov, 2016 Active Clonazepam 0.5 MG Orally Once a day at bedtime 1 tablet at bedtime 28 days Active Milk of Magnesia 7.75 % Orally once daily 30 ml as needed 24h Active RESULTS No Results PROCEDURES Procedure Date Ordered Result Body Site Minor complication (15 mins) June 03, 2018 INSTRUCTIONS MEDICATIONS ADMINISTERED No Known Medications MEDICAL [...] History Intertrechanteric hip fx 04/27/16 Hospitalization History [facility] (inpatient [facility] 2 times) Hx of 3 inpatient psych treatments in past in [place] oct 2016 [facility] 2016
--- OUTSIDE RECORDS SUMMARY | 2018-08-20 12:52 | XMS REPORT ---
Author Author WOLF AGUIRRE [facility] Address [address] [place] [address] Care Team Providers Care Emissions Testing And Repair Technician Name Role Phone WOLF AGUIRRE Unavailable PROBLEMS Type Condition ICD9-CM Code TLS46-ON Code Onset Dates Condition Status SNOMED Code Problem Sundowning F05 Active 230610902 Problem Constipation, unspecified constipation type K59.00 Active 45206807 Problem Reactive depression F32.9 Active 51826370 Problem Vascular dementia with behavior disturbance F01.51 Active 876811240437396 Problem Insomnia, unspecified type G47.00 Active 655187164 Problem Generalized anxiety disorder F41.1 Active 85271074 Problem Other chronic pain G89.29 Active 83919697 Problem Severe episode of recurrent major depressive disorder, without psychotic features F33.2 Active 82564524 Problem Slow transit constipation K59.01 Active 01442033 Problem 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 Active 209473178 Problem Obsessive thinking F42.8 Active 41829156 Problem Failure to thrive in adult R62.7 Active 032561918 Problem Dysthymic disorder F34.1 Active 32906999 Problem Hypertension I10 Active 26404932 Problem Mood disorder F39 Active 05102616 Problem Irritable bowel syndrome with diarrhea K58.0 Active 770045520 Problem Oropharyngeal dysphagia R13.12 Active 26917774 Problem 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 Active 43137482 Problem Other chronic pain G89.29 Active 75407427 Problem Primary insomnia F51.01 Active 0638209 Problem Poor appetite R63.0 Active 41136399 Problem 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 Active 218598970656636 Problem Iron deficiency anemia secondary to inadequate dietary iron intake D50.8 Active 549219178 Problem Coarse tremors G25.2 Active 14524633 Problem Gastroesophageal reflux disease without esophagitis K21.9 Active 983297237 Problem Essential hypertension I10 Active 07614715 ALLERGIES No Information ENCOUNTERS Encounter Location Date Diagnosis [facility] [address] [id number] Aug, [facility] [address] [address] Aug, [facility] [address] [address] Jul, [facility] [id number] [place] [address] 83157- 3292 Jun, [facility] [address] [place] [address] 26055- 1285 Jun, [facility] [address] [address] Jun, Left lower quadrant pain R10.32 and Left leg pain M79.605 [facility] [id number] [place] [address] 21159- 5189 Jun, [facility] [address] [place] [id number] Jun, Pain in left hip M25.552 ; Pain in right hip M25.551 and Primary insomnia F51.01 [facility] [address] [address] Jun, [facility] [address] [id number] May, [facility] [address], [place] [address] 0816 May, [facility] [address], [place] [address] 4807 May, [facility] [address] [place] [id number] May, Mood disorder F39 [facility] [address] [address] 17[address] May, [facility] [address], [place] [address] 287[address] April, [facility] [address] [place] [address] April, Generalized anxiety disorder F41.1 ; Obsessive thinking F42.8 and Insomnia , unspecified type G47.00 [facility] [address] [address] April, [facility] [id number] [place] [address] 321738- 0057 April, Rash of face R21 [facility] [id number] [place] [address] 20038- 7658 Mar, [facility] [id number] [place] [address] 29043- 0220 Mar, [facility] [id number] [place] [address] 664813- 3574 Mar, [facility] [id number] [place] [address] 35126- 0442 Jan, [facility] [address] [place] [address] 72186- 6511 Jan, [facility] [address] [place] [id number] Jan, Constipation, unspecified constipation type K59.00 and Other chronic pain G89.29 [facility] [address] [address] 4[address] Jan, [facility] [address] [id number] Jan, Obsessive thinking F42.8 and Coarse tremors G25.2 [facility] [id number] [place] [id number] Jan, [facility] [id number] [place] [id number] Jan, [facility] [address] [address] Jan, Generalized anxiety disorder F41.1 ; Obsessive thinking F42.8 ; Callus of foot L84 and 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 [facility] [id number] [place] [address] 98513- 8306 Dec, Generalized anxiety disorder F41.1 and Severe episode of recurrent major depressive disorder, without psychotic features F33.2 [facility] [id number] [place] [address] 07696- 2947 Nov, [facility] [id number] [place] [address] 75638- 7286 Nov, [facility] [address] [id number] Nov, Oropharyngeal dysphagia R13.12 ; Generalized anxiety disorder F41.1 and 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 [facility] [id number] [place] [address] 38470- 1437 Nov, [facility] [address] [id number] Nov, [facility] [id number] [place] [address] 63616- 8349 Nov, [facility] [id number] [place] [address] 85089- 4358 Nov, [facility] [id number] [place] [address] 04822- 5512 Oct, Constipation, unspecified constipation type K59.00 and Mood disorder F39 [facility] [id number] [place] [address] 15526- 6757 Oct, [facility] [facility] [id number] [place] [address] [id number] Sep, [facility] [facility] [id number] [place] [address] [id number] Sep, [facility] [facility] [id number] [place] [address] [id number] Sep, [facility] [facility] [address] [place] [id number] Sep, [facility] [address] [place] [address] Sep, Generalized abdominal pain R10.84 [facility] [address], [place] [address] 1406 Sep, [facility] [id number] [address] Sep, Generalized anxiety disorder F41.1 and Primary insomnia F51.01 [facility] [id number] [address] Aug, [facility] [id number] [place] [address] [id number] Aug, Generalized anxiety disorder F41.1 [facility] [id number] [address] 0273 Jul, [facility] [address] [address] Jul, Obsessive thinking F42.8 [facility] [address], [place] [address] 9528 Jul, Generalized anxiety disorder F41.1 and Irritable bowel syndrome with diarrhea K58.0 [facility] [id number] [address] Jul, Generalized anxiety disorder F41.1 [facility] [id number] [id number] Jun, Generalized anxiety disorder F41.1 [facility] [id number] [address] 1497 May, [facility] [address] [id number] May, Generalized anxiety disorder F41.1 ; Irritable bowel syndrome with diarrhea K58.0 and Coarse tremors G25.2 [facility] [id number] [address] 9072 April, [facility] [address], [place] [address]- 5305 April, [facility] [address], [place] [address]- 5517 April, [facility] [address], [place] [address]- 2946 Mar, [facility] [address] [address] Mar, Severe episode of recurrent major depressive disorder, without psychotic features F33.2 and Pain in left hip M25.552 [facility] [address] [place] [address] 16360- 5214 Mar, [facility] [id number] [place] [address] 91942- 4790 Mar, [facility] [id number] [place] [address] 88778- 3006 Mar, [facility] [id number] [place] [address] 28781- 0958 Mar, Pain in right hip M25.551 and Self-care deficit in patient living alone R46.89 [facility] [address], [place] [address] Jan, Other chronic pain G89.29 ; Pain in left hip M25.552 and Slow transit constipation K59.01 [facility] [address] [place] [address] 11700- 9280 Jan, [facility] [address] [address]- 3049 Dec, Other depression F32.89 ; Constipation, unspecified constipation type K59.00 and Insomnia, unspecified type G47.00 [facility] [address] [address] 0609 Nov, Reactive depression F32.9 ; Chronic idiopathic constipation K59.04 ; Generalized anxiety disorder F41.1 ; Coarse tremors G25.2 ; Gastroesophageal reflux disease without esophagitis K21.9 ; Dysthymic disorder F34.1 ; Vitamin deficiency, unspecified E56.9 and Primary insomnia F51.01 [facility] [id number] [place] [address] 68819- 4296 Nov, [facility] [address] 83406- 8226 Nov, [facility] [address] 51752- 1397 Nov, [facility] [address] 70234- 1418 Nov, Reactive depression F32.9 ; Essential hypertension [...] intake D50.8 and Vitamin deficiency, unspecified E56.9 [facility] [address] 93525- 0566 Oct, [facility] [id number] [place] [address] 15276- 1717 Oct, [facility] [id number] [place] [address] 91252- 9349 18 Oct, 2016 [facility] [id number] [place] [address] 76063- 9697 16 Oct, 2016 Generalized anxiety disorder F41.1 ; Poor appetite R63.0 ; Dehydration E86.0 and Failure to thrive in adult R62.7 [facility] [id number] [place] [address] 83040- 9721 07 Oct, 2016 Generalized anxiety disorder F41.1 and Failure to thrive in adult R62.7 [facility] [address] [place] [address]- 5556 Oct, [facility] [id number] [place] [address] 12906- 2090 Oct, [facility] [id number] [place] [address] 06706 -5565 Sep, Vaginal discharge N89.8 and Acute cystitis with hematuria N30.01 [facility] [id number] [place] [address] 99618- 7774 Sep, [facility] [id number] [place] [address] 01514- 0135 Sep, [facility] [id number] [place] [address] 93152- 1095 Sep, Dysthymic disorder F34.1 ; Acute vaginitis N76.0 ; Dysuria R30.0 and Vaginal yeast infection B37.3 [facility] [id number] [place] [address] 01178- 1947 Aug, [facility] [id number] [place] [address] 72586- 4709 Aug, [facility] [id number] [place] [address] 97270 -6263 Aug, Foul smelling urine R82.90 ; Rapid heart rate R00.0 and Flatulence R14.3 [facility] [address] [place] [address] 80122- 5093 Aug, [facility] [id number] [place] [address] 67974- 6217 Jul, Constipation, unspecified constipation type K59.00 ; Weak R53.1 ; Poor appetite R63.0 ; Coronary artery disease involving ambler heart without angina pectoris, unspecified vessel or lesion type I25.10 ; Fatigue, unspecified type R53.83 ; Urinary incontinence, unspecified type R32 and Insomnia, unspecified type G47.00 [facility] [id number] [place] [address] 64657- 9075 Jul, [facility] [id number] [place] [address] 31482- 4667 Jun, Dysuria R30.0 [facility] [id number] [place] [address] 71151- 2523 Jun, [facility] [id number] [place] [address] 51215- 5049 Jun, Urinary tract infection, site not specified N39.0 ; Acute vaginitis N76.0 and Diarrhea, unspecified type R19.7 [facility] [id number] [place] [address] 24688- 2888 May, [facility] [id number] [place] [address] 74033- 6206 April, [facility] [address] [id number] April, Encounter for dental examination Z01.20 [facility] [id number] [place] [address] 05230- 9282 April, [facility] [id number] [place] [address] 00681- 4376 April, Tremor R25.1 and Episodic tension-type headache, not intractable G44.219 [facility] [id number] [place] [address] 37881- 1162 Mar, [facility] [id number] [place] [address] 62458- 7248 Jan, Mood disorder F39 [facility] [id number] [place] [address] 61637 -9347 Jan, [facility] [id number] [place] [address] 63790- 1718 Jan, [facility] [id number] [place] [address] 49808- 8339 Jan, [facility] [address], [place] [address]- 8198 Jan, [facility] [id number] [place] [address] 81872- 6474 Jan, [facility] [address] [place] [address] 07085- 1156 Jan, [facility] [id number] [place] [address] 94125 -2746 Dec, Acute diarrhea R19.7 [facility] [id number] [place] [address] 69282- 5203 Dec, [facility] [id number] [place] [address] 63482- 2940 Dec, [facility] [id number] [place] [address] 26177- 9089 Dec, [facility] [id number] [place] [address] 35060 -0293 Dec, N&V (nausea and vomiting) R11.2 [facility] [id number] [place] [address] 03815- 0578 Dec, Generalized anxiety disorder F41.1 [facility] [id number] [place] [address] 25052- 2290 Dec, Generalized anxiety disorder F41.1 [facility] [address] [place] [address] 69257- 3665 Nov, Post concussion syndrome F07.81 [facility] [id number] [place] [address] 80268- 3925 Nov, Generalized anxiety disorder F41.1 [facility] [address] [place] [address] 48943- 7805 Nov, [facility] [address] [place] [address] 46844- 3391 Nov, Generalized anxiety disorder F41.1 [facility] [address] [place] [address] [id number] Oct, Dental caries K02.9 [facility] [id number] [place] [address] 77132- 6006 Oct, [facility] [address] [place] [address] [id number] Oct, Dental examination Z01.20 [facility] [address] [id number] Oct, Encounter for dental examination Z01.20 [facility] [address] 53804- 3518 Oct, CAD (coronary artery disease) I25.10 [facility] [id number] [place] [address] 04276- 3819 Sep, Generalized anxiety disorder F41.1 [facility] [address] [place] [address] 11477- 8419 Sep, [facility] [address] [place] [address] 20490- 1170 Sep, Rash and other nonspecific skin eruption R21 and Yeast vaginitis B37.3 [facility] [address] [place] [address] 60069- 1853 Sep, Generalized anxiety disorder F41.1 [facility] [address] [place] [address] 28852- 2181 Aug, Insect bites 919.4 and Hemorrhoids 455.6 [facility] [address] [place] [address] 93833- 5788 Aug, Generalized anxiety disorder 300.02 [facility] [address] 70181- 6910 08 Aug, 2015 [facility] [address] [place] [address] 44425- 9158 Aug, [facility] [address] [address]- 4004 Aug, Generalized anxiety disorder 300.02 ; No condition on Alstead II V71.09 ; Heart problem 429.9 and Hypertension 401.9 [facility] [address] [place] [address] 60962- 6540 Aug, [facility] [id number] [place] [address] 83264- 6015 Jul, [facility] [id number] [place] [address] 97754- 7462 Jul, [facility] [id number] [place] [address] 16547- 0504 Jul, [facility] [id number] [place] [address] 10853- 9149 Jul, [facility] [address] [place] [address] 36237- 7156 Jul, Rash 782.1 [facility] [id number] [place] [address] 55517- 3727 Jul, UTI (urinary tract infection) 599.0 [facility] [id number] [place] [address] 92935- 0613 Jul, [facility] [id number] [place] [address] 20421- 5058 Jun, Dysthymia 300.4 and Anxiety 300.00 [facility] [address] [place] [address] 69586- 2802 Jun, 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 [facility] [address] [place] [address] 78150- 2156 May, [facility] [id number] [place] [address] 20216- 0696 May, [facility] [id number] [place] [address] 50300- 5410 May, Unspecified breast screening V76.10 [facility] [address] [id number] [address] May, Dental examination V72.2 [facility] [address] [id number], [place] [address]- 9136 April, [facility] [address] [id number], [place] [address]- 2546 April, [facility] [address] [id number][place] [id number] April, Dental examination V72.2 [facility] [address] [id number][place] [address] April, Dental examination V72.2 [facility] [address] [id number], [place] [address]- 1866 Mar, [facility] [address] [id number], [place] [address]- 1906 Mar, [facility] [address] [id number][place] [address]- 3030 Jan, [facility] [address] [id number][place]- 8046 25 Jan, 2015 [facility] [address] [facility] [id number]- 5484 18 Jan, 2015 [facility] [address] [id number], [place] [address]- 7526 18 Jan, 2015 [facility] [address] [id number], [place] [address]- 5656 16 Jan, 2015 [facility] [address] [id number], [place] [address]- 5136 16 Jan, 2015 [facility] [address] [id number], [place] [address]- 3826 13 Jan, 2015 [facility] [address] [id number], [place] [address]- 0303 13 Jan, 2015 [facility] [place] [facility] [address] [id number] [place] [address]- 6790 Jan, [facility] [place] [facility] [address] [id number] [place] [address]- 7391 Jan, [facility] [place] [facility] [address] [id number] [place] [address]- 3888 Jan, [facility] [place] [facility] [address] [id number] [place] [address]- 9343 Jan, [facility] [place] [facility] [address] [id number] [place] [address]- 1883 Jan, [facility] [place] [facility] [address] [id number] [place] [address]- 8123 Jan, [facility] [place] [facility] [address] [id number] [place] [address]- 5357 Jan, [facility] [place] [facility] [address] [id number] [place] [address]- 2992 Jan, 2014 [facility] [place] [facility] [address] [id number] [place] [address]- 1742 Jan, [facility] [place] [facility] [address] [facility] [id number] [place] [address]- 2544 Jan, [facility] [place] [facility] [address] [id number] [place] [address]- 3918 Jan, 2014 [facility] [place] [facility] [address] [id number] [place] [address]- 7737 Jan, 2014 [facility] [place] [facility] [address] [id number] [place] [address]- 4417 Jan, [facility] [place] [facility] [address] [id number] [place] 3112 Jan, [facility] [place] [facility] [address] [id number] [place] [address] Dec, [facility] [place] [facility] [address] [id number] [place] [address] Dec, [facility] [address] [id number] [place] [address] Dec, [facility] [place] [facility] [address] [id number] [place] [address] Dec, [facility] [address] [id number] [place] [address] Nov, [facility] [place] [facility] [address] [id number] [place] [address] Nov, [facility] [address] [id number] [place] [address] Nov, [facility] [place] [facility] [address] [id number] [place] [address] Nov, [facility] [place] [facility] [address] [id number] [place] [address] Nov, [facility] [address] [id number] [place] [address] Nov, [facility] [place] [facility] [address] [id number] [place] [address] Nov, [facility] [address] [id number] [place] [address] Oct, [facility] [place] [facility] [address] [id number] [place] [address] Oct, [facility] [place] [facility] [address] [id number] [place] [address] Oct, [facility] [place] [facility] [address] [id number] [place] [address] Oct, [facility] [place] [facility] [address] [id number] [place] [address] Oct, [facility] [place] [facility] [address] [id number] [place] [address] Oct, [facility] [place] [facility] [address] [id number] [place] [address] Oct, [facility] [place] [facility] [address] [id number] [place] [address] Oct, [facility] [place] [facility] [address] [id number] [place] [address] Oct, [facility] [place] [facility] [address] [id number] [place] [address] Oct, [facility] [place] [facility] [address] [id number] [place] [address] Oct, [facility] [place] [facility] [address] [id number] [place] [address] Oct, [facility] [place] [facility] [address] [id number] [place] [address] Sep, [facility] [place] [facility] [address] [id number] [place] [address] Sep, [facility] [place] [facility] [address] [id number] [place] [address] Sep, [facility] [place] [facility] [address] [id number] [place] [address] Sep, [facility] [facility] [address] [id number], [place] [address] Jul, [facility] [facility] [address] [id number], [place] [address] Jul, [facility] [place] [facility] [address] [id number] [place] [address] Jul, [facility] [place] [facility] [address] [id number] [place] [address] Jul, [facility] [place] [facility] [address] [id number] [place] [address] Jun, [facility] [place] [facility] [address] [id number], [place] [address] Jun, [facility] [address] [id number] [place] [address] Jun, [facility] [place] [facility] [address] [id number] [place] [address] Jun, [facility] [place] [facility] [address] [id number] [place] [address] May, [facility] [place] [facility] [address] [id number] [place] [address] 18[address] May, [facility] [place] [facility] [address] [id number] [place] [address] 285[address] April, [facility] [place] [facility] [address] [id number] [place] [address] April, [facility] [address] [id number] [place] [address] April, [facility] [facility] [address] [id number] [place] [address] April, [facility] [facility] [address] [id number] [place] [address] April[facility] [address] [id number] [place] [address] April, [facility] [address] [id number] [place] [address] April, [facility] [place] [facility] [address] [id number] [place] [address]- 5785 April, [facility] [place] [facility] [address] [id number] [place] [address]- [address]286 April, [facility] [place] [facility] [address] [id number] [place] [address] 92[address] Mar, [facility] [place] [facility] [address] [id number] [place] [address]- 6600 Mar, [facility] [place] [facility] [address] [id number] [place] [address]- 29[address] Mar, [facility] [place] [facility] [address] [id number] [place] [address] 3738 Mar, [facility] [place] [facility] [address] [id number] [place] [address]- 7929 Jan, [facility] [place] [facility] [address] [id number] [place] [address]- 8943 Jan, [facility] [place] [facility] [address] [id number] [place] [address]- 6876 Jan, [facility] [place] [facility] [address] [id number] [place] [address]- 1571 Jan, [facility] [place] [facility] [address] [id number] [place] [address] Jan, [facility] [place] [facility] [address] [id number] [place] [address]- 1809 Jan, [facility] [place] [facility] [address] [id number] [place] [address]- 1174 Jan, [facility] [place] [facility] [address] [id number] [place] [address] Jan, [facility] [place] [facility] [address] [id number] [place] [address] Jan, [facility] [place] [facility] [address] [id number] [place] [address]- 2735 Jan, [facility] [place] [facility] [address] [id number] [place] [address]- 5463 Jan, [facility] [place] [facility] [address] [id number] [place] [address]- 7001 Jan, [facility] [place] [facility] [address] [id number] [place] [address]- 4817 Dec, [facility] [place] [facility] [address] [id number] [place] [address]- 2546 Dec, [facility] [place] [facility] [address] [id number] [place] [address]- 3503 Dec, [facility] [address] [id number] [place] [address]- 6976 Dec, [facility] [facility] [address] [id number] [place] [address]- 6006 Nov, [facility] [address] [id number] [place] [address] Nov, [facility] [address] [id number] [place] [address]- [address] Nov, [facility] [address] [id number] [place] [address]- 3543 Nov, [facility] [address] [id number] [place] [address] Oct, [facility] [address] [id number] [place] [address]- 7854 Oct, [facility] [facility] [address] [id number] [place] [address]- 9960 Sep, [facility] [address] [id number] [place] [address]- 7[address] Sep, [facility] [address] [id number] [place] [address]- 3714 Jul, [facility] [address] [id number] [place] [address]- 2718 Jul, [facility] [address] [id number] [place] [address]- 3440 Jun, [facility] [address] [id number] [place] [address]- 2477 Jun, [facility] [address] [id number] [place] [address]- 0048 Jun, [facility] [address] [id number] [place] [address]- [address]3 26 May, [address] [facility] [address] [id number] [place] [address] [address] May, [facility] [address] [id number] [place] [address]- 0610 17 May, [address] [facility] [address] [id number] [place] [address] 1240 May, [facility] [address] [id number] [place] [address]- 5779 May, [facility] [address] [id number] [place] [address]- 7780 April, [facility] [address] [id number] [place] [address] 6614 April, [facility] [address] [id number] [place] [address]- 0280 April, [facility] [address] [id number] [place] [address]- [address] April, [facility] [address] [id number] [place] [address]- 9728 April, [facility] [address] [id number] [place] [address]- 2872 April, [facility] [address] [id number] [place] [address]- 9953 Mar, [facility] [address] [id number] [place] [address]- 3536 15 Mar, 2013 [facility] [address] [id number] [place] [address]- 0789 28 Jan, 2013 [facility] [address] [id number] [place] [address]- [address]46 Jan, [facility] [address] [id number] [place] [address]- 1386 Jan, [facility] [address] [id number] [place] [address]- 6743 Jan, [facility] [facility] [address] [id number] [place] [address]- 9506 Jan, [facility] [facility] [address] [id number] [place] [address]- 9726 Jan, [facility] [address] [id number] [place] [address]- 4639 Jan, [facility] [address] [id number] [place] [address]- 7576 Jan, [facility] [address] [id number] [place] [address]- 3946 Jan, [facility] [address] [id number] [place] [address]- 4161 Jan, [facility] [address] [id number] [place] [address]- 3079 Jan, [facility] [address] [id number] [place] [address]- 4472 Dec, [facility] [address] [id number] [place] [address]- 1103 Nov, [facility] [address] [id number] [place] [address]- 6553 Nov, [facility] [facility] [address] [id number] [place] [address]- 3567 Nov, [facility] [address] [id number] [place] [address]- 9390 Nov, [facility] [address] [facility] [id number] [place] [address]- 9605 Nov, [facility] [address] [facility] [id number] [place] [address]- 7508 Nov, [facility] [address] [id number] [place] [address]- 1824 20 Nov, 2012 [facility] [address] [id number] [place] [address]- 0656 Nov, [facility] [address] [id number] [place] [address]- 1906 Nov, [facility] [address] [id number] [place] [address]- 2770 18 Nov, 2012 [facility] [address] [id number] [place] [address]- 8183 18 Nov, 2012 [facility] [address] [facility] [id number] [place] [address], [place] [address]- 5575 Nov, [facility] [address] [facility] [id number] [place] [address]- 7212 Nov, [facility] [address] [facility] [id number] [place] [address]- 8142 Oct, [facility] [address] [id number] [place] [address]- 3928 Oct, [facility] [address] [facility] [id number] [place] [address]- 7387 Oct, [facility] [address] [facility] [id number] [place] [address]- 2497 Sep, [facility] [address] [facility] [id number] [place] [address]- 6313 Sep, [facility] [address] [facility] [id number], [place] [address]- 0905 Sep, [facility] [address] [facility] [id number] [place] [address] 10 Sep, 2012 [facility] [address] [facility] [id number] [place] [address]- 6485 27 Aug, 2012 [facility] [address] [facility] [id number] [place] [address]- 7804 Aug, [facility] [address] [id number] [place] [address]- 4838 Jul, [facility] [address] [id number] [place] [address]- 0549 May, [facility] [place] [facility] [address] [id number] [place] [address]- 9896 May, [facility] [place] [facility] [address] [id number] [place] [address]- 5207 May, [facility] [place] [facility] [address] [id number] [place] [address]- 1144 April, [facility] [place] [facility] [address] [id number] [place] [address]- 2366 Mar, [facility] [place] [facility] [address] [id number] [place] [address]- 7989 Mar, [facility] [place] [facility] [address] [id number] [place] [address]- 8350 Mar, [facility] [place] [facility] [address] [id number] [place] [address]- 2778 Jan, [facility] [place] [facility] [address] [id number] [place] [address]- 4905 Jan, [facility] [place] [facility] [address] [id number] [place] [address]- 5585 Jan, [facility] [place] [facility] [address] [id number], [place] [address]- 9921 Dec, [facility] [address] [id number] [place] [address]- 5489 Dec, [facility] [place] [facility] [address] [id number] [place] [address]- 8676 Dec, [facility] [place] [facility] [address] [id number], [place] [address]- 5436 Dec, [facility] [facility] [address] [id number], [place] [address]- 2404 28 Nov, 2011 [facility] [facility] [address] [id number] [place] [address]- 7702 15 Nov, 2011 [facility] [place] [facility] [address] [id number] [place] [address]- 3566 03 Nov, 2011 [facility] [place] [facility] [address] [id number] [place] [address]- 9646 Oct, [facility] [place] [facility] [address] [id number] [place] [address]- 4916 31 Sep, 2011 [facility] [place] [facility] [address] [id number] [place] [address]- 5725 26 Sep, 2011 [facility] [place] [facility] [address] [id number] [place] [address]- 6603 13 Sep, 2011 [facility] [place] [facility] [address] [facility] [id number] [place] [address]- 5467 15 Nov, 2010 [facility] [place] [facility] [address] [id number] [place] [address]- 9427 23 Oct, 2010 [facility] [place] [facility] [address] [facility] [id number] [place] [address]- 0280 Oct, [facility] [place] [facility] [address] [facility] [id number] [place] [address]- 6863 18 Oct, 2010 [facility] [place] [facility] [address] [id number] [place] [address]- 4326 16 Oct, 2010 [facility] [place] [facility] [address] [id number] [place] [address]- 7994 11 Sep, 2010 [facility] [place] [facility] [address] [id number] [place] [address]- 1478 April, [facility] [place] [facility] [address] [id number] [place] [address]- 8914 29 Nov, 2009 [facility] [place] [facility] [address] [facility] [id number] [place] [address]- 8391 24 Nov, 2009 [facility] [place] [facility] [address] [facility] [id number], [place] [address]- 7941 Nov, [facility] [address] [id number], [place] [address]- 2222 Nov, [facility] [address] [facility] [id number], [place] [address]- 8204 Nov, [facility] [address] [id number] 2704 Oct, [facility] [address] [facility] [id number][place] [address]858 Oct, [facility] [id number] [address] Sep, [facility] [address] [id number], [place] [address]- 0306 Jan, IMMUNIZATIONS No Known Immunizations SOCIAL HISTORY Never Assessed REASON FOR VISIT Fpc Visit PLAN OF CARE Activity Details Follow Up prn Reason: VITAL SIGNS MEDICATIONS Unknown Medications RESULTS No Results PROCEDURES Procedure Date Ordered Result Body Site [facility] VISIT ESTABLISHED PATIENT June 12, 2018 NURSING FAC CARE SUBSEQ June 12, 2018 INSTRUCTIONS MEDICATIONS ADMINISTERED No Known Medications [...] History Intertrechanteric hip fx 04/27/16 Hospitalization History [facility] (inpatient [facility] 2 times) Hx of 3 inpatient psych treatments in past in [place] oct 2016 [facility] 2016
--- OUTSIDE RECORDS SUMMARY | 2018-08-20 12:53 | XMS REPORT ---
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 Name Role Phone WOLF AGUIRRE Unavailable PROBLEMS Type Condition ICD9-CM Code WBL07-SF Code Onset Dates Condition Status SNOMED Code Problem Sundowning F05 Active 260488806 Problem Constipation, unspecified constipation type K59.00 Active 29836955 Problem Reactive depression F32.9 Active 28980834 Problem Vascular dementia with behavior disturbance F01.51 Active [id number] Problem Insomnia, unspecified type G47.00 Active 202913957 Problem Generalized anxiety disorder F41.1 Active 27862073 Problem Other chronic pain G89.29 Active 78817149 Problem Severe episode of recurrent major depressive disorder, without psychotic features F33.2 Active 17519404 Problem Slow transit constipation K59.01 Active 94616609 Problem 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 Active 987110637 Problem Obsessive thinking F42.8 Active 73445861 Problem Failure to thrive in adult R62.7 Active 907419722 Problem Dysthymic disorder F34.1 Active 58422565 Problem Hypertension I10 Active 42190275 Problem Mood disorder F39 Active 11741556 Problem Irritable bowel syndrome with diarrhea K58.0 Active 464148109 Problem Oropharyngeal dysphagia R13.12 Active 97277754 Problem 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 Active 98393391 Problem Other chronic pain G89.29 Active 69983341 Problem Primary insomnia F51.01 Active 0458691 Problem Poor appetite R63.0 Active 83441608 Problem Atherosclerotic heart disease of [place] 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 Active 814577544392934 Problem Iron deficiency anemia secondary to inadequate dietary iron intake D50.8 Active 080709983 Problem Coarse tremors G25.2 Active 50557450 Problem Gastroesophageal reflux disease without esophagitis K21.9 Active 909658242 Problem Essential hypertension I10 Active 50565377 ALLERGIES No Information ENCOUNTERS Encounter Location Date Diagnosis [facility] [address] [id number] Aug, [facility] [address] [address] Aug, [facility] [address] [address] 2405 Jul, [facility] [id number] [place] [address] 42216- 9234 Jun, [facility] [id number] [place] [address] 35181- 4897 Jun, [facility] [address] [id number] Jun, Left lower quadrant pain R10.32 and Left leg pain M79.605 [facility] [id number] [place] [address] 45227- 2728 Jun, [facility] [address] [place] [id number] Jun, Pain in left hip M25.552 ; Pain in right hip M25.551 and Primary insomnia F51.01 [facility] [address] [address] 2439 Jun, [facility] [address] [id number] May, [facility] [address] [address]- 6681 May, [facility] [address] [address] 5612 May, [facility] [address] [place] [id number] May, Mood disorder F39 [facility] [address] [address] 7407 May, [facility] [address] [address] 5108 April, [facility] [address] [id number] April, Generalized anxiety disorder F41.1 ; Obsessive thinking F42.8 and Insomnia , unspecified type G47.00 [facility] [address] [address]26 April, [facility] [id number] [place] [address] 944805- 3574 April, Rash of face R21 [facility] [id number] [place] [address] 33644- 1351 Mar, [facility] [id number] [place] [address] 29945- 4903 Mar, [facility] [id number] [place] [address] 575935- 8370 Mar, [facility] [id number] [place] [address] 10500- 1817 Jan, [facility] [id number] [place] [address] 48502- 0100 Jan, [facility] [address] [place] [id number] Jan, Constipation, unspecified constipation type K59.00 and Other chronic pain G89.29 [facility] [address] [address] 8616 Jan, [facility] [address] [id number] Jan, Obsessive thinking F42.8 and Coarse tremors G25.2 [facility] [id number] [place] [address] [id number] Jan, [facility] [id number] [place] [address] [id number] Jan, [facility] [address] [address] Jan, Generalized anxiety disorder F41.1 ; Obsessive thinking F42.8 ; Callus of foot L84 and 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 [facility] [id number] [place] [address] 90830- 4836 Dec, Generalized anxiety disorder F41.1 and Severe episode of recurrent major depressive disorder, without psychotic features F33.2 [facility] [id number] [place] [address] 00824- 1600 Nov, [facility] [id number] [place] [address] 95279- 6111 Nov, [facility] [address] [id number] Nov, Oropharyngeal dysphagia R13.12 ; Generalized anxiety disorder F41.1 and 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 [facility] [id number] [place] [address] 30643- 6300 Nov, [facility] [address] [id number] Nov, [facility] [id number] [place] [address] 65251- 2442 Nov, [facility] [id number] [place] [address] 11624- 2251 Nov, [facility] [id number] [place] [address] 19632- 4990 Oct, Constipation, unspecified constipation type K59.00 and Mood disorder F39 [facility] [id number] [place] [address] 76503- 7880 Oct, [facility] [id number] [place] [address] [id number] Sep, [facility] [id number] [place] [address] [id number] Sep, [facility] [id number] [place] [address] [id number] Sep, [facility] [address] [place] [id number] Sep, [facility] [address] [address] Sep, Generalized abdominal pain R10.84 [facility] [address] [address]- 9366 Sep, [facility] [id number] [address] Sep, Generalized anxiety disorder F41.1 and Primary insomnia F51.01 [facility] [id number] [address] Aug, [facility] [id number] [place] [address] [id number] Aug, Generalized anxiety disorder F41.1 [facility] [id number] [address]- 7819 Jul, [facility] [address] [address] Jul, Obsessive thinking F42.8 [facility] [address] [address]- 1123 Jul, Generalized anxiety disorder F41.1 and Irritable bowel syndrome with diarrhea K58.0 [facility] [id number] [place] [address] Jul, Generalized anxiety disorder F41.1 [facility] [id number] [address] Jun, Generalized anxiety disorder F41.1 [facility] [id number] [address] 8319 May, [facility] [address] [id number] May, Generalized anxiety disorder F41.1 ; Irritable bowel syndrome with diarrhea K58.0 and Coarse tremors G25.2 [facility] [id number] [address]- 2294 April, [facility] [address] [address]- 9692 April, [facility] [address] [address]- 7354 April, [facility] [address] [address]- 2219 Mar, [facility] [address] [address] Mar, Severe episode of recurrent major depressive disorder, without psychotic features F33.2 and Pain in left hip M25.552 [facility] [address] [place] [address] 10806- 1017 Mar, [facility] [id number] [place] [address] 50533- 8451 Mar, [facility] [id number] [place] [address] 11638- 6831 Mar, [facility] [id number] [place] [address] 20584- 4108 Mar, Pain in right hip M25.551 and Self-care deficit in patient living alone R46.89 [facility] [address] [address] Jan, Other chronic pain G89.29 ; Pain in left hip M25.552 and Slow transit constipation K59.01 [facility] [address] [place] [address] 80777- 0080 Jan, [facility] [address] [address]- 0238 Dec, Other depression F32.89 ; Constipation, unspecified constipation type K59.00 and Insomnia, unspecified type G47.00 [facility] [address] [address]- 5201 Nov, Reactive depression F32.9 ; Chronic idiopathic constipation K59.04 ; Generalized anxiety disorder F41.1 ; Coarse tremors G25.2 ; Gastroesophageal reflux disease without esophagitis K21.9 ; Dysthymic disorder F34.1 ; Vitamin deficiency, unspecified E56.9 and Primary insomnia F51.01 [facility] [facility] [id number] [place] [address] 41844- 7192 Nov, [facility] [address] 11010- 7184 Nov, [facility] [address] 07193- 6423 Nov, [facility] [facility] [address] 14345- 7440 Nov, Reactive depression F32.9 ; Essential hypertension I10 ; Generalized anxiety disorder F41.1 ; Atherosclerotic heart disease of [place] 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 ; Pain in right hip M25.551 ; Other chronic pain G89.29 ; Chronic idiopathic constipation K59.04 ; Primary insomnia F51.01 ; Coarse tremors G25.2 ; Gastroesophageal reflux disease without esophagitis K21.9 ; Iron deficiency anemia secondary to inadequate dietary iron intake D50.8 and Vitamin deficiency, unspecified E56.9 [place] [facility] [address] 40899- 2591 Oct, [place] [facility] [id number] [place] [address] 37279- 3194 Oct, [place] [facility] [id number] [place] [address] 11998- 9870 18 Oct, 2016 [place] [facility] [id number] [place] [address] 65246- 3047 16 Oct, 2016 Generalized anxiety disorder F41.1 ; Poor appetite R63.0 ; Dehydration E86.0 and Failure to thrive in adult R62.7 [facility] [id number] [place] [address] 83277- 6954 07 Oct, 2016 Generalized anxiety disorder F41.1 and Failure to thrive in adult R62.7 [place] [facility] [address] [place] [address]- 7848 Oct, [facility] [id number] [place] [address] 16518- 3371 Oct, [facility] [id number] [place] [address] 19865 -7937 Sep, Vaginal discharge N89.8 and Acute cystitis with hematuria N30.01 [facility] [id number] [place] [address] 36616- 5157 Sep, [facility] [id number] [place] [address] 87826- 0585 Sep, [place] [facility] [id number] [place] [address] 18437- 4107 Sep, Dysthymic disorder F34.1 ; Acute vaginitis N76.0 ; Dysuria R30.0 and Vaginal yeast infection B37.3 [place] [id number] [place] [address] 47150- 1304 Aug, [place] [id number] [place] [address] 33523- 8306 Aug, [facility] [id number] [place] [address] 53226 -8292 Aug, Foul smelling urine R82.90 ; Rapid heart rate R00.0 and Flatulence R14.3 [place] [address] [place] [address] 27186- 7605 Aug, [facility] [facility] [id number] [place] [address] 40464- 0874 Jul, Constipation, unspecified constipation type K59.00 ; Weak R53.1 ; Poor appetite R63.0 ; Coronary artery disease involving nul[place] heart without angina pectoris, unspecified vessel or lesion type I25.10 ; Fatigue, unspecified type R53.83 ; Urinary incontinence, unspecified type R32 and Insomnia, unspecified type G47.00 [place] [id number] [place] [address] 67545- 2374 Jul, [facility] [id number] [place] [address] 89336- 5146 Jun, Dysuria R30.0 [facility] [id number] [place] [address] 67547- 7192 Jun, [facility] [id number] [place] [address] 98891- 5095 Jun, Urinary tract infection, site not specified N39.0 ; Acute vaginitis N76.0 and Diarrhea, unspecified type R19.7 [facility] [id number] [place] [address] 41600- 2017 May, [facility] [id number] [place] [address] 43093- 6262 April, [facility] [address] [id number] April, Encounter for dental examination Z01.20 [facility] [id number] [place] [address] 95014- 6063 April, [facility] [id number] [place] [address] 46405- 3360 April, Tremor R25.1 and Episodic tension-type headache, not intractable G44.219 [facility] [id number] [place] [address] 14069- 8785 Mar, [facility] [id number] [place] [address] 47127- 9872 Jan, Mood disorder F39 [facility] [id number] [place] [address] 49145 -4556 Jan, [facility] [id number] [place] [address] 38672- 0986 Jan, [facility] [id number] [place] [address] 02308- 5357 Jan, [facility] [address] [address]- 0594 Jan, [facility] [id number] [place] [address] 30181- 0981 Jan, [facility] [address] [place] [address] 77979- 0864 Jan, [facility] [id number] [place] [address] 01994 -0915 Dec, Acute diarrhea R19.7 [facility] [id number] [place] [address] 20881- 2515 Dec, [facility] [id number] [place] [address] 99507- 3923 Dec, [facility] [id number] [place] [address] 40148- 1924 Dec, [facility] [id number] [place] [address] 17988 -8391 Dec, N&V (nausea and vomiting) R11.2 [facility] [id number] [place] [address] 08032- 7726 Dec, Generalized anxiety disorder F41.1 [facility] [id number] [place] [address] 03141- 4407 Dec, Generalized anxiety disorder F41.1 [facility] [address] [place] [address] 45513- 8468 Nov, Post concussion syndrome F07.81 [facility] [id number] [place] [address] 63410- 0242 Nov, Generalized anxiety disorder F41.1 [facility] [address] [place] [address] 89276- 4697 Nov, [facility] [address] [place] [address] 03681- 5936 Nov, Generalized anxiety disorder F41.[address] [facility] [address] [place] [address] [id number] Oct, Dental caries K02.9 [facility] [id number] [place] [address] 43493- 4886 Oct, [facility] [address] [place] [address] [id number] Oct, Dental examination Z01.[address] [facility] [address] [id number] Oct, Encounter for dental examination Z01.20 [facility] [address] 58252- 8133 Oct, CAD (coronary artery disease) I25.10 [facility] [id number] [place] [address] 40392- 1229 Sep, Generalized anxiety disorder F41.1 [facility] [id number] [place] [address] 15866- 1529 Sep, [facility] [id number] [place] [address] 86991- 7333 Sep, Rash and other nonspecific skin eruption R21 and Yeast vaginitis B37.3 [facility] [id number] [place] [address] 36924- 8052 Sep, Generalized anxiety disorder F41.1 [facility] [id number] [place] [address] 54320- 7065 Aug, Insect bites 919.4 and Hemorrhoids 455.6 [facility] [id number] [place] [address] 05822- 5349 Aug, Generalized anxiety disorder 300.02 [facility] [address] 78804- 8922 08 Aug, 2015 [facility] [id number] [place] [address] 11526- 9684 Aug, [facility] [id number] [address]- 6284 Aug, Generalized anxiety disorder 300.02 ; No condition on [place] II V71.09 ; Heart problem 429.9 and Hypertension 401.9 [facility] [id number] [place] [address] 27533- 1283 Aug, [facility] [id number] [place] [address] 30766- 1749 Jul, [facility] [id number] [place] [address] 53567- 6681 Jul, [facility] [id number] [place] [address] 26581- 7012 Jul, [facility] [id number] [place] [address] 15010- 7425 Jul, [facility] [id number] [place] [address] 42954- 7740 Jul, Rash 782.1 [facility] [id number] [place] [address] 02389- 1905 Jul, UTI (urinary tract infection) 599.0 [facility] [id number] [place] [address] 02169- 6541 Jul, [facility] [id number] [place] [address] 50654- 1413 Jun, Dysthymia 300.4 and Anxiety 300.00 [facility] [address] [place] [address] 45459- 6263 Jun, 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 [address] [id number] [address] May, Dental examination V72.2 [facility] [address] [id number] [address]- 7686 April, [facility] [address] [id number] [place] [address]- [address] April, [facility] [address] [id number] [place] [id number] April, Dental examination V72.[address] [facility] [address] [id number] [place] [id number] April, Dental examination V72.2 [facility] [address] [id number] [place] [address]- 7686 Mar, [facility] [address] [id number] [address]- 0896 Mar, [facility] [address] [id number] [place] [address]- 6041 Jan, [facility] [address] [id number] [place]- 4836 25 Jan, 2015 [facility] [address] [facility] [id number] [place]- 3526 18 Jan, 2015 [facility] [address] [id number] [address]- 0886 18 Jan, 2015 [facility] [address] [id number] [address]- 9276 16 Jan, 2015 [facility] [address] [id number] [address]- 4026 16 Jan, 2015 [facility] [address] [id number] [place] [address]- 1656 13 Jan, 2015 [facility] [address] [id number] [place] [address]- 1366 13 Jan, 2015 [facility] [place] [facility] [address] [id number] [place] [address]- 9062 Jan, [facility] [place] [facility] [address] [id number] [place] [address]- 9335 Jan, [facility] [place] [facility] [address] [id number] [place] [address]- 9637 Jan, [facility] [place] [facility] [address] [id number] [place] [address]- 2819 Jan, [facility] [place] [facility] [address] [id number] [place] [address]- 8980 Jan, [facility] [place] [facility] [address] [id number] [place] [address]- 9883 Jan, [facility] [place] [facility] [address] [id number] [place] [address]- 4212 Jan, [facility] [place] [facility] [address] [id number] [place] [address]- 7784 Jan, 2014 [facility] [place] [facility] [address] [id number] [place] [address]- 8151 Jan, [facility] [place] [facility] [address] [facility] [id number] [place] [address]- 3292 Jan, [facility] [place] [facility] [address] [id number] [place] [address] Jan, 2014 [facility] [place] [facility] [address] [id number] [place] [address] Jan, 2014 [facility] [place] [facility] [address] [id number] [place] [address] Jan, [facility] [place] [facility] [address] [id number] [place] Jan, [facility] [place] [facility] [address] [id number] [place] [address] 2018 Dec, [facility] [place] [facility] [address] [id number] [place] [address] Dec, [facility] [address] [id number] [place] [address] Dec, [facility] [place] [facility] [address] [id number] [place] [address] Dec, [facility] [address] [id number] [place] [address] Nov, [facility] [place] [facility] [address] [id number] [place] [address] Nov, [facility] [address] [id number] [place] [address] Nov, [facility] [place] [facility] [address] [id number] [place] [address] Nov, [facility] [place] [facility] [address] [id number] [place] [address] Nov, [facility] [address] [id number] [place] [address] Nov, [facility] [place] [facility] [address] [id number] [place] [address] Nov, [facility] [address] [id number] [place] [address] Oct, [facility] [place] [facility] [address] [id number] [place] [address] Oct, [facility] [place] [facility] [address] [id number] [place] [address] Oct, [facility] [place] [facility] [address] [id number] [place] [address]268 Oct, [facility] [place] [facility] [address] [id number] [place] [address]- 9682 Oct, [facility] [place] [facility] [address] [id number] [place] [address] Oct, [facility] [place] [facility] [address] [id number] [place] [address]- [address] Oct, [facility] [place] [facility] [address] [id number] [place] [address]- [address] Oct, [facility] [place] [facility] [address] [id number] [place] [address]- 1488 Oct, [facility] [place] [facility] [address] [id number] [place] [address]- 3588 Oct, [facility] [place] [facility] [address] [id number] [place] [address]- 7978 Oct, [facility] [place] [facility] [address] [id number] [place] [address]- 2858 Oct, [facility] [place] [facility] [address] [id number] [place] [address]- 6[address] Sep, [facility] [place] [facility] [address] [id number] [place] [address]- 57[address] Sep, [facility] [place] [facility] [address] [id number] [place] [address]- [address]3 Sep, [facility] [place] [facility] [address] [id number] [place] [address]- 38[address] Sep, [facility] [place] [facility] [address] [id number] [place] [address] Jul, [facility] [place] [facility] [address] [id number] [place] [address] Jul, [facility] [place] [facility] [address] [id number] [place] [address]- 1364 Jul, [facility] [place] [facility] [address] [id number] [place] [address]- [address] Jul, [facility] [place] [facility] [address] [id number] [place] [address]- [address]150 Jun, [facility] [place] [facility] [address] [id number] [place] [address]- [address] Jun, [facility] [address] [id number] [place] [address]- 8166 Jun, [facility] [place] [facility] [address] [id number] [place] [address]- 9132 Jun, [facility] [place] [facility] [address] [id number] [place] [address]- [address] May, [facility] [place] [facility] [address] [id number] [place] [address]- 4806 May, [facility] [place] [facility] [address] [id number] [place] [address]- [address]356 April, [facility] [place] [facility] [address] [id number] [place] [address]- 5610 April, [facility] [address] [id number] [place] [address]- 7697 April, [facility] [place] [facility] [address] [id number] [place] [address]- 3233 April, [facility] [place] [facility] [address] [id number] [place] [address]- 2063 April, [facility] [place] [facility] [address] [id number] [place] [address]- 2749 April, [facility] [place] [facility] [address] [id number] [place] [address]- 5479 April, [facility] [place] [facility] [address] [id number] [place] [address]- 4156 April, [facility] [place] [facility] [address] [id number] [place] [address]- 6725 April, [facility] [place] [facility] [address] [id number] [place] [address]- 1819 Mar, [facility] [place] [facility] [address] [id number] [place] [address]- 9391 Mar, [facility] [place] [facility] [address] [id number] [place] [address]- 3746 Mar, [facility] [place] [facility] [address] [id number] [place] [address]- 2179 Mar, [facility] [place] [facility] [address] [id number] [place] [address]- 2742 Jan, [facility] [place] [facility] [address] [id number] [place] [address]- 6427 Jan, [facility] [place] [facility] [address] [id number] [place] [address]- 0582 Jan, [facility] [place] [facility] [address] [id number] [place] [address]- 0039 Jan, [facility] [place] [facility] [address] [id number] [place] [address]- 5551 Jan, [facility] [place] [facility] [address] [id number] [place] [address]- 6360 Jan, [facility] [place] [facility] [address] [id number] [place] [address]- 2359 Jan, [facility] [place] [facility] [address] [id number] [place] [address]- 2808 Jan, [facility] [place] [facility] [address] [id number] [place] [address]- 1626 Jan, [facility] [place] [facility] [address] [id number] [place] [address]- 1751 Jan, [facility] [place] [facility] [address] [id number] [place] [address]- 1970 Jan, [facility] [place] [facility] [address] [id number] [place] [address]- 2920 Jan, [facility] [place] [facility] [address] [id number] [place] [address]- 0430 Dec, [facility] [place] [facility] [address] [id number] [place] [address]- 2546 Dec, [facility] [place] [facility] [address] [id number] [place] [address]- 9505 Dec, [facility] [place] [facility] [address] [id number] [place] [address]- 2574 Dec, [facility] [place] [facility] [address] [id number] [place] [address]- 3664 Nov, [facility] [place] [facility] [address] [id number] [place] [address] Nov, [facility] [place] [facility] [address] [id number] [place] [address]- 6419 Nov, [facility] [place] [facility] [address] [id number] [place] [address]- 9302 Nov, [facility] [place] [facility] [address] [id number] [place] [address] Oct, [facility] [place] [facility] [address] [id number] [place] [address]- 5933 Oct, [facility] [place] [facility] [address] [id number] [place] [address]- 1387 Sep, [facility] [place] [facility] [address] [id number] [place] [address]- 8746 Sep, [facility] [place] [facility] [address] [id number] [place] [address]- 4399 Jul, [facility] [place] [facility] [address] [id number] [place] [address]- 0118 Jul, [facility] [place] [facility] [address] [id number] [place] [address]- 8507 Jun, [facility] [place] [facility] [address] [id number] [place] [address]- 3511 Jun, [facility] [place] [facility] [address] [id number] [place] [address]- 1381 Jun, [facility] [place] [facility] [address] [id number] [place] [address]- 3062 26 May, 2013 [facility] [address] [id number] [place] [address]- 8048 May, [facility] [address] [id number] [place] [address]- 7696 17 May, 2013 [facility] [address] [id number] [place] [address]- 6581 May, [facility] [address] [id number] [place] [address]- 7527 May, [facility] [address] [id number] [place] [address]- 7846 April, [facility] [address] [id number] [place] [address]- 5938 April, [facility] [address] [id number] [place] [address]- 0050 April, [facility] [address] [id number] [place] [address]- 9195 April, [facility] [address] [id number] [place] [address]- 5179 April, [facility] [address] [id number] [place] [address]- 0891 April, [facility] [address] [id number] [place] [address]- 3621 Mar, [facility] [address] [id number] [place] [address]- 2886 15 Mar, 2013 [facility] [address] [id number] [place] [address]- 2872 28 Jan, 2013 [facility] [address] [id number] [place] [address]- 2546 Jan, [facility] [address] [id number] [place] [address]- 7214 Jan, [facility] [address] [id number] [place] [address]- 6571 Jan, [facility] [place] [facility] [address] [id number] [place] [address]- 1516 Jan, [facility] [place] [facility] [address] [id number] [place] [address]- 6406 Jan, [facility] [place] [facility] [address] [id number] [place] [address]- 3229 Jan, [facility] [place] [facility] [address] [id number] [place] [address]- 8786 Jan, [facility] [place] [facility] [address] [id number] [place] [address]- 3851 Jan, [facility] [address] [id number] [place] [address]- 8840 Jan, [facility] [place] [facility] [address] [id number] [place] [address]- 9388 Jan, [facility] [address] [id number] [place] [address]- 2384 Dec, [facility] [place] [facility] [address] [id number] [place] [address]- 9055 Nov, [facility] [place] [facility] [address] [id number] [place] [address]- 1327 Nov, [facility] [place] [facility] [address] [id number] [place] [address]- 2775 Nov, [facility] [place] [facility] [address] [id number] [place] [address]- 8327 Nov, [facility] [place] [facility] [address] [facility] [id number] [place] [address]- 8941 Nov, [facility] [place] [facility] [address] [facility] [id number] [place] [address]- 3607 Nov, [facility] [place] [facility] [address] [id number] [place] [address]- 3588 20 Nov, 2012 [facility] [address] [id number] [place] [address]- 3024 Nov, [facility] [place] [facility] [address] [id number] [place] [address]- 9356 Nov, [facility] [address] [id number] [place] [address]- 8182 18 Nov, 2012 [facility] [place] [facility] [address] [id number] [place] [address]- 7224 18 Nov, 2012 [facility] [address] [facility] [id number] [place] [address], [place] [address]- [address]266 Nov, [facility] [address] [facility] [id number] [place] [address]- 1982 Nov, [facility] [address] [facility] [id number] [place] [address]- 3999 Oct, [facility] [address] [id number] [place] [address]- 3114 Oct, [facility] [place] [facility] [address] [facility] [id number] [place] [address]- 1458 Oct, [facility] [address] [facility] [id number] [place] [address]- 6027 Sep, [facility] [place] [facility] [address] [facility] [id number] [place] [address]- 6166 Sep, [facility] [place] [facility] [address] [facility] [id number] [place] [address]- 3047 Sep, [facility] [place] [facility] [address] [facility] [id number] [place] [address] 10 Sep, 2012 [facility] [place] [facility] [address] [facility] [id number] [place] [address]- 9477 27 Aug, 2012 [facility] [place] [facility] [address] [facility] [id number] [place] [address]- 1602 Aug, [facility] [address] [id number] [place] [address]- 7163 Jul, [facility] [place] [facility] [address] [id number] [place] [address]- 8327 May, [facility] [place] [facility] [address] [id number] [place] [address]- 2275 May, [facility] [place] [facility] [address] [id number] [place] [address]- 8609 May, [facility] [place] [facility] [address] [id number] [place] [address]- 6354 April, [facility] [place] [facility] [address] [id number] [place] [address]- 8976 Mar, [facility] [place] [facility] [address] [id number] [place] [address]- 6811 Mar, [facility] [place] [facility] [address] [id number] [place] [address]- 0075 Mar, [facility] [place] [facility] [address] [id number] [place] [address]- 6596 Jan, [facility] [place] [facility] [address] [id number] [place] [address]- 8337 Jan, [facility] [place] [facility] [address] [id number] [place] [address]- 0568 Jan, [facility] [place] [facility] [address] [id number] [place] [address]- 7750 Dec, [facility] [place] [facility] [address] [id number] [place] [address]- 8049 Dec, [facility] [place] [facility] [address] [id number] [place] [address]- 7156 Dec, [facility] [place] [facility] [address] [id number] [place] [address]- 8116 Dec, [facility] [place] [facility] [address] [id number] [place] [address]- 1472 28 Nov, 2011 [facility] [place] [facility] [address] [id number] [place] [address]- 2182 15 Nov, 2011 [facility] [place] [facility] [address] [id number] [place] [address]- 8296 03 Nov, 2011 [facility] [place] [facility] [address] [id number] [place] [address]- 0526 Oct, [facility] [place] [facility] [address] [id number] [place] [address]- 4675 31 Sep, 2011 [facility] [place] [facility] [address] [id number] [place] [address]- 6063 26 Sep, 2011 [facility] [place] [facility] [address] [id number] [place] [address]- 9548 13 Sep, 2011 [facility] [place] [facility] [address] [facility] [id number] [place] [address]- 1047 15 Nov, 2010 [facility] [place] [facility] [address] [id number] [place] [address]- 7302 23 Oct, 2010 [facility] [place] [facility] [address] [facility] [id number] [place] [address]- 1912 Oct, [facility] [place] [facility] [address] [facility] [id number] [place] [address]- 5272 18 Oct, 2010 [facility] [place] [facility] [address] [id number] [place] [address]- 5130 16 Oct, 2010 [facility] [place] [facility] [address] [id number] [place] [address]- 9146 11 Sep, 2010 [facility] [place] [facility] [address] [id number] [place] [address]- 8210 April, [facility] [place] [facility] [address] [id number] [place] [address]- 5244 29 Nov, 2009 [facility] [place] [facility] [address] [facility] [id number] [place] [address]- 6738 24 Nov, 2009 [facility] [place] [facility] [address] [id number] [address]- 6624 Nov, [facility] [address] [id number] [address]- 8823 Nov, [facility] [address] [id number] [address]- 8022 Nov, [facility] [address] [id number] [address]888 Oct, [facility] [id number] [address] Oct, [facility] [id number] [address] Sep, [facility] [address] [id number] [address]- 6683 Jan, IMMUNIZATIONS No Known Immunizations SOCIAL HISTORY Never Assessed REASON FOR VISIT Side Effects PLAN OF CARE VITAL SIGNS MEDICATIONS Unknown Medications RESULTS No Results PROCEDURES No Known procedures INSTRUCTIONS MEDICATIONS ADMINISTERED No Known Medications MEDICAL (GENERAL) HISTORY Type Description Date Medical History Hypertension Medical History Heart disease CABG X3 Stress test 07/2015 Medical History Gastric ulcer Medical History Hyperlipidemia Medical History Headache syndrome Medical History Psychiatric disorders-depression/racing thoughts Medical History Depression Medical History At [facility] 04/2016 Started on Eliquis Medical History Anemia 04/2016 postsurgical hip fx Surgical History right hip replacement w/ Dr. Bruce 2011 Surgical History triple bypass surgery 2003 Surgical History S/P left hip IM Nail (Intertrechanteric hip fx) 04/28/16 Hospitalization History surgeries Hospitalization History Hypertension Hospitalization History ER for a concussion 11/24/15 Hospitalization History Intertrechanteric hip fx 04/27/16 Hospitalization History [facility] (inpatient [facility] 2 times) Hx of 3 inpatient psych treatments in past in [place] oct 2016 [facility]
--- OUTSIDE RECORDS SUMMARY | 2018-08-20 12:53 | XMS REPORT ---
Author Author WOLF AGUIRRE [facility] Address [address] [place] [address] Care Team Providers Care Doper Operator Name Role Phone WOLF AGUIRRE Unavailable PROBLEMS Type Condition ICD9-CM Code DTY00-AT Code Onset Dates Condition Status SNOMED Code Problem Sundowning F05 Active 174345951 Problem Constipation, unspecified constipation type K59.00 Active 23168353 Problem Reactive depression F32.9 Active 24205441 Problem Vascular dementia with behavior disturbance F01.51 Active 670289396614283 Problem Insomnia, unspecified type G47.00 Active 424925036 Problem Generalized anxiety disorder F41.1 Active 16595724 Problem Other chronic pain G89.29 Active 21323857 Problem Severe episode of recurrent major depressive disorder, without psychotic features F33.2 Active 28272052 Problem Slow transit constipation K59.01 Active 95935052 Problem 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 Active 347736071 Problem Obsessive thinking F42.8 Active 94491329 Problem Failure to thrive in adult R62.7 Active 132519644 Problem Dysthymic disorder F34.1 Active 84790200 Problem Hypertension I10 Active 08287670 Problem Mood disorder F39 Active 32221085 Problem Irritable bowel syndrome with diarrhea K58.0 Active 310882756 Problem Oropharyngeal dysphagia R13.12 Active 70091395 Problem 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 Active 45735867 Problem Other chronic pain G89.29 Active 39086600 Problem Primary insomnia F51.01 Active 2789598 Problem Poor appetite R63.0 Active 91615636 Problem Atherosclerotic heart disease of [place] 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 Active 750808709053241 Problem Iron deficiency anemia secondary to inadequate dietary iron intake D50.8 Active 965166643 Problem Coarse tremors G25.2 Active 18067502 Problem Gastroesophageal reflux disease without esophagitis K21.9 Active 935369440 Problem Essential hypertension I10 Active 88662086 ALLERGIES No Information ENCOUNTERS Encounter Location Date Diagnosis [facility] [address] [address] Jul, [facility] [id number] [place] [address] 73719- 4580 Jun, [facility] [id number] [place] [address] 98878- 6995 Jun, [facility] [address] [id number] Jun, Left lower quadrant pain R10.32 and Left leg pain M79.605 [facility] [id number] [place] [address] 67633- 1809 Jun, [facility] [address] [id number] Jun, Pain in left hip M25.552 ; Pain in right hip M25.551 and Primary insomnia F51.01 [facility] [address] [place] [address] 30835- 0087 Jun, [facility] [address] [id number] May, [facility] [address] [place] [address] 38961- 4857 May, [facility] [address] [place] [address] 78597- 4544 May, [facility] [address] [id number] May, Mood disorder F39 [facility] [address], [place] [address] 9371 May, [facility] [id number] [place] [address] 26710- 3591 April, [facility] [address] [id number] April, Generalized anxiety disorder F41.1 ; Obsessive thinking F42.8 and Insomnia , unspecified type G47.00 [facility] [address], [place] [address] 8604 April, [facility] [address] [place] [address] 08528- 5683 April, Rash of face R21 [facility] [address], [place] [address] 5076 Mar, [facility] [id number] [place] [address] 28278- 4018 Mar, [facility] [id number] [place] [address] 39564- 1190 Mar, [facility] [id number] [place] [address] 79522- 9274 Jan, [facility] [id number] [place] [address] 29640- 9824 Jan, [facility] [id number] Jan, Constipation, unspecified constipation type K59.00 and Other chronic pain G89.29 [facility] [address] [place] [address] 82783- 5096 Jan, [facility] [address] [id number] Jan, Obsessive thinking F42.8 and Coarse tremors G25.2 [facility] [id number] [place] [address] [id number] Jan, [facility] [id number] [id number] Jan, [facility] [address] [id number] Jan, Generalized anxiety disorder F41.1 ; Obsessive thinking F42.8 ; Callus of foot L84 and 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 [facility] [address], [place] [address] 0777 Dec, Generalized anxiety disorder F41.1 and Severe episode of recurrent major depressive disorder, without psychotic features F33.2 [facility] [address], [place] [address] 6855 Nov, [facility] [address], [place] [address] 1280 Nov, [facility] [address] [id number] Nov, Oropharyngeal dysphagia R13.12 ; Generalized anxiety disorder F41.1 and 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 [facility] [address], [place] [address] Nov, [facility] [id number] [place] [address] [id number] Nov, [facility] [address] [place] [address] 27932- 3204 Nov, [facility] [address] [place] [address] 78715- 9162 Nov, [facility] [address] [place] [address] 42819- 4755 Oct, Constipation, unspecified constipation type K59.00 and Mood disorder F39 [facility] [address], [place] [address] 2080 Oct, [facility] [id number] [place] [address] [id number] Sep, [facility] [id number] [address] Sep, [facility] [id number] [place] [address] [id number] Sep, [facility] [id number] [place] [address] [id number] Sep, [facility] [address] [id number] Sep, Generalized abdominal pain R10.84 [facility] [address], [place] [address] 5936 Sep, [facility] [id number] [id number] Sep, Generalized anxiety disorder F41.1 and Primary insomnia F51.01 [facility] [id number] [id number] Aug, [facility] [id number] [place] [address] [id number] Aug, Generalized anxiety disorder F41.1 [facility] [id number], [place] [address]- 5837 Jul, [facility] [address] [id number] Jul, Obsessive thinking F42.8 [facility] [address], [place] [address]- 0444 Jul, Generalized anxiety disorder F41.1 and Irritable bowel syndrome with diarrhea K58.0 [facility] [id number] [id number] Jul, Generalized anxiety disorder F41.1 [facility] [id number] [place] [address] [id number] Jun, Generalized anxiety disorder F41.1 [facility] [id number], [place] [address]- 0287 May, [facility] [address] [id number] May, Generalized anxiety disorder F41.1 ; Irritable bowel syndrome with diarrhea K58.0 and Coarse tremors G25.2 [facility] [address] [address]105 April, [facility] [address], [place] [address]- 0682 April, [facility] [address], [place] [address]- 7071 April, [place] [address], [place] [address]- 9852 Mar, [facility] [address] [id number] Mar, Severe episode of recurrent major depressive disorder, without psychotic features F33.2 and Pain in left hip M25.552 [facility] [address] [place] [address] 34524- 4911 Mar, [facility] [id number] [place] [address] 35279- 2260 Mar, [facility] [id number] [place] [address] 41482- 1079 Mar, [facility] [id number] [place] [address] 38443- 6091 Mar, Pain in right hip M25.551 and Self-care deficit in patient living alone R46.89 [facility] [id number] [place] [address] 07720 -9415 Jan, Other chronic pain G89.29 ; Pain in left hip M25.552 and Slow transit constipation K59.01 [facility] [place] [address] [place] [address] 74677- 7957 Jan, [facility] [address] [place] [address] 89037- 8796 Dec, Other depression F32.89 ; Constipation, unspecified constipation type K59.00 and Insomnia, unspecified type G47.00 [facility] [place] [address] [place] [address] 65095- 5445 Nov, Reactive depression F32.9 ; Chronic idiopathic constipation K59.04 ; Generalized anxiety disorder F41.1 ; Coarse tremors G25.2 ; Gastroesophageal reflux disease without esophagitis K21.9 ; Dysthymic disorder F34.1 ; Vitamin deficiency, unspecified E56.9 and Primary insomnia F51.01 [facility] [id number] [place] [address] 37218- 1496 Nov, [facility] [id number] [place] [address] 63723- 5043 Nov, [facility] [id number] [place] [address] 25719- 0134 Nov, [facility] [id number] [place] [address] 16116- 6112 Nov, Reactive depression F32.9 ; Essential hypertension I10 ; Generalized anxiety disorder F41.1 ; Atherosclerotic heart disease of [place] 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 ; Pain in right hip M25.551 ; Other chronic pain G89.29 ; Chronic idiopathic constipation K59.04 ; Primary insomnia F51.01 ; Coarse tremors G25.2 ; Gastroesophageal reflux disease without esophagitis K21.9 ; Iron deficiency anemia secondary to inadequate dietary iron intake D50.8 and Vitamin deficiency, unspecified E56.9 [facility] [id number] [place] [address] 56018- 6616 Oct, [facility] [id number] [place] [address] 87037- 4700 Oct, [facility] [id number] [place] [address] 51186- 9740 Oct, [facility] [place] [id number] [place] [address] 54618- 0687 Oct, Generalized anxiety disorder F41.1 ; Poor appetite R63.0 ; Dehydration E86.0 and Failure to thrive in adult R62.7 [facility] [id number] [place] [address] 77047- 5272 07 Oct, 2016 Generalized anxiety disorder F41.1 and Failure to thrive in adult R62.7 [facility] [place] [id number] [place] [address] 26129- 5718 Oct, [facility] [place] [id number] [place] [address] 04146- 8157 Oct, [facility] [address] [place] [address] 12618 -3888 Sep, Vaginal discharge N89.8 and Acute cystitis with hematuria N30.01 [facility] [id number] [place] [address] 85855- 7084 Sep, [facility] [id number] [place] [address] 10856- 7485 Sep, [facility] [place] [address] 95824- 1171 Sep, Dysthymic disorder F34.1 ; Acute vaginitis N76.0 ; Dysuria R30.0 and Vaginal yeast infection B37.3 [place] [id number] [place] [address] 82530- 1943 Aug, [place] [address] 21521- 6735 Aug, [facility] [id number] [place] [address] 76069 -1264 Aug, Foul smelling urine R82.90 ; Rapid heart rate R00.0 and Flatulence R14.3 [place] [id number] [place] [address] 53896- 4206 Aug, [place] [id number] [place] [address] 75785- 6406 Jul, Constipation, unspecified constipation type K59.00 ; Weak R53.1 ; Poor appetite R63.0 ; Coronary artery disease involving [place] heart without angina pectoris, unspecified vessel or lesion type I25.10 ; Fatigue, unspecified type R53.83 ; Urinary incontinence, unspecified type R32 and Insomnia, unspecified type G47.00 [facility] [id number] [place] [address] 04600- 1940 Jul, [place] [id number] [place] [address] 00326- 8972 Jun, Dysuria R30.0 [facility] [id number] [place] [address] 31401- 8971 Jun, [facility] [address] 90777- 2205 Jun, Urinary tract infection, site not specified N39.0 ; Acute vaginitis N76.0 and Diarrhea, unspecified type R19.7 [facility] [address] 25200- 9314 May, [facility] [id number] [place] [address] 12288- 2326 April, [facility] [address] [id number] April, Encounter for dental examination Z01.20 [facility] [address] 27071- 7436 April, [facility] [address] 98577- 5072 April, Tremor R25.1 and Episodic tension-type headache, not intractable G44.219 [facility] [id number] [place] [address] 40346- 4445 Mar, [facility] [id number] [place] [address] 31471- 0901 Jan, Mood disorder F39 [facility] [id number] [place] [address] 38743 -8878 Jan, [facility] [id number] [place] [address] 24102- 1583 Jan, [facility] [address] 69790- 4080 Jan, [facility] [id number] [place] [address] 44504- 0219 Jan, [facility] [id number] [place] [address] 23051- 2550 Jan, [facility] [address] [place] [address] 21071- 0772 Jan, [facility] [id number] [place] [address] 15304 -4003 Dec, Acute diarrhea R19.7 [facility] [id number] [place] [address] 99131- 2213 Dec, [facility] [id number] [place] [address] 54404- 0210 Dec, [facility] [id number] [place] [address] 40387- 3929 Dec, [facility] [id number] [place] [address] 83704 -0769 Dec, N&V (nausea and vomiting) R11.2 [facility] [id number] [place] [address] 56846- 6485 Dec, Generalized anxiety disorder F41.1 [facility] [id number] [place] [address] 68803- 7118 Dec, Generalized anxiety disorder F41.1 [facility] [id number] [place] [address] 54195- 5045 Nov, Post concussion syndrome F07.81 [facility] [id number] [place] [address] 56464- 8787 Nov, Generalized anxiety disorder F41.1 [facility] [id number] [place] [address] 22256- 3536 Nov, [facility] [id number] [place] [address] 63854- 8026 Nov, Generalized anxiety disorder F41.1 [facility] [address] [place] [address] [id number] Oct, Dental caries K02.9 [facility] [id number] [place] [address] 87554- 7486 Oct, [facility] [address] [place] [address] [id number] Oct, Dental examination Z01.20 [facility] [id number] [place] [address] [id number] 10 Oct, 2015 Encounter for dental examination Z01.20 [facility] [address] 80176- 4083 Oct, CAD (coronary artery disease) I25.10 [facility] [id number] [place] [address] 71934- 3946 Sep, Generalized anxiety disorder F41.1 [place] [id number] [place] [address] 90278- 7890 Sep, [facility] [address] 95811- 8926 Sep, Rash and other nonspecific skin eruption R21 and Yeast vaginitis B37.3 [place] [address] [place] [address] 45546- 3760 Sep, Generalized anxiety disorder F41.1 [place] [id number] [place] [address] 44138- 5470 Aug, Insect bites 919.4 and Hemorrhoids 455.6 [place] [address] 76706- 3184 Aug, Generalized anxiety disorder 300.02 [facility] [id number] [place] [address] 57708- 6272 Aug, [facility] [address] 19024- 8891 Aug, [facility] [address] 76595- 3971 Aug, Generalized anxiety disorder 300.02 ; No condition on Redbird II V71.09 ; Heart problem 429.9 and Hypertension 401.9 [place] [address] [facility] [id number] [address]- 0655 Aug, [facility] [address], [place] [address]- 6555 Jul, [facility] [address] [facility] [id number], [place] [address]- 1389 Jul, [facility] [address], [place] [address]- 9594 Jul, [facility] [address] [facility] [id number], [place] [address]- 5249 Jul, [facility] [address], [place] [address]- 0230 Jul, Rash 782.1 [facility] [address], [place] [address]- 5592 Jul, UTI (urinary tract infection) 599.0 [facility] [address], [place] [address]- 5508 Jul, [facility] [address], [place] [address]- 8243 Jun, Dysthymia 300.4 and Anxiety 300.00 [facility] [address], [place] [address]- 5645 Jun, 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 [facility] [address], [place] [address]- 6409 May, [facility] [id number], [place] [address]- 9248 May, [facility] [address], [place] [address]- 1067 May, Unspecified breast screening V76.10 [facility] [address] [id number] [id number] May, Dental examination V72.2 [facility] [address] [place] [address]- 0416 April, [facility] [address] [id number], [place] [address]- 4306 April, [facility] [place] [facility] [address] [id number] [id number] April, Dental examination V72.2 [facility] [address] [id number][place] [id number] April, Dental examination V72.2 [facility] [address] [id number] [place] [address]- 5921 Mar, [facility] [place] [facility] [address] [id number] [place] [address]- 7106 Mar, [facility] [place] [facility] [address] [id number] [place] [address]- 8143 Jan, [facility] [place] [facility] [address] [id number] [place] [address]- 5380 25 Jan, 2015 [facility] [place] [facility] [address] [id number] [place] [address]- 2267 18 Jan, 2015 [facility] [place] [facility] [address] [id number] [place] [address]- 7651 18 Jan, 2015 [facility] [place] [facility] [address] [id number] [place] 3103 16 Jan, 2015 [facility] [place] [facility] [address] [id number], [place] [address]- 5826 16 Jan, 2015 [facility] [place] [facility] [address] [id number] [place]- 6390 13 Jan, 2015 [facility] [place] [facility] [address] [id number] [place] 8225 13 Jan, 2015 [facility] [place] [facility] [address] [id number], [place] [address]- 9677 11 Jan, 2015 [facility] [place] [facility] [address] [id number][place] [address]- 9692 Jan, [facility] [place] [facility] [address] [id number] [place] [address]- 6988 Jan, [facility] [place] [facility] [address] [id number] [place] [address]- 7006 Jan, [facility] [place] [facility] [address] [facility] [id number] [place] [address]- 9344 Jan, [facility] [place] [facility] [address] [id number] [place] [address]- 3204 Jan, [facility] [place] [facility] [address] [id number] [place] [address]- 7556 Jan, [facility] [place] [facility] [address] [facility] [id number] [place] [address]- 1098 Jan, [facility] [place] [facility] [address] [facility] [id number] [place] [address] Jan, [facility] [place] [facility] [address] [facility] [id number] [place] [address] Jan, [facility] [place] [facility] [address] [facility] [id number] [place] [address] Jan, [facility] [place] [facility] [address] [facility] [id number] [place] [address] Jan, [facility] [place] [facility] [address] [facility] [id number] [place] [address] Jan, [facility] [place] [facility] [address] [facility] [id number], [place] [address] Jan, [facility] [place] [facility] [address] [id number] [place] [address] Dec, [facility] [place] [facility] [address] [facility] [id number] [place] [address] Dec, [facility] [place] [facility] [address] [facility] [id number], [place] [address] Dec, [facility] [place] [facility] [address] [id number] [place] [address] Dec, [facility] [place] [facility] [address] [id number] [place] [address] Nov, [facility] [place] [facility] [address] [id number] [place] [address] Nov, [facility] [place] [facility] [address] [id number] [place] [address] Nov, [facility] [place] [facility] [address] [id number] [place] [address] Nov, [facility] [place] [facility] [address] [id number] [place] [address] Nov, [facility] [place] [facility] [address] [id number] [place] [address] Nov, [facility] [place] [facility] [address] [id number] [place] [address] Nov, [facility] [place] [facility] [address] [id number] [place] [address] Oct, [facility] [place] [facility] [address] [id number] [place] [address] Oct, [facility] [place] [facility] [address] [id number] [place] [address] Oct, [facility] [facility] [address] [id number] [place] [address] Oct, [facility] [place] [facility] [address] [id number] [place] [address] Oct, [facility] [place] [facility] [address] [id number] [place] [address]479 Oct, [facility] [place] [facility] [address] [id number] [place] [address] 7770 Oct, [facility] [place] [facility] [address] [id number] [place] [address] 4[address] Oct, [facility] [place] [facility] [address] [id number] [place] [address] 67[address] Oct, [facility] [place] [facility] [address] [id number] [place] [address] 6574 Oct, [facility] [place] [facility] [address] [id number] [place] [address] 5784 Oct, [facility] [place] [facility] [address] [id number] [place] [address] Oct, [facility] [place] [facility] [address] [id number] [place] [address] Sep, [facility] [place] [facility] [address] [id number] [place] [address] 2791 Sep, [facility] [place] [facility] [address] [id number] [place] [address] 6[address] Sep, [facility] [place] [facility] [address] [id number] [place] [address] Sep, [facility] [place] [facility] [address] [id number] [place] [address] 9628 Jul, [facility] [place] [facility] [address] [id number] [place] [address] 5233 Jul, [facility] [place] [facility] [address] [id number] [place] [address]- 2114 Jul, [facility] [place] [facility] [address] [id number] [place] [address] 1244 Jul, [facility] [place] [facility] [address] [id number] [place] [address]- 2657 Jun, [facility] [place] [facility] [address] [id number] [place] [address]- 4513 Jun, [facility] [place] [facility] [address] [id number] [place] [address]- 6923 Jun, [facility] [address] [id number] [place] [address] 7642 Jun, [facility] [address] [id number] [place] [address] 6[address] May, [facility] [address] [id number] [place] [address] May, [facility] [address] [id number] [place] [address]- 5[address] April, [facility] [address] [id number] [place] [address]- 7127 April, [facility] [address] [id number] [place] [address]- 4074 April, [facility] [address] [id number] [place] [address]- 8385 April, [facility] [address] [id number] [place] [address]- 4927 April, [facility] [address] [id number] [place] [address] 7688 April, [facility] [address] [id number] [place] [address]- 3974 April, [facility] [address] [id number] [place] [address]- 8477 April, [facility] [address] [id number] [place] [address]- 0823 April, [facility] [address] [id number] [place] [address]- 9230 Mar, [facility] [address] [id number] [place] [address] 4151 Mar, [facility] [address] [id number] [place] [address]- 2563 Mar, [facility] [address] [id number] [place] [address] 8359 Mar, [facility] [place] [facility] [address] [id number] [place] [address]- 8684 Jan, [facility] [place] [facility] [address] [id number] [place] [address]- 3948 Jan, [facility] [place] [facility] [address] [id number] [place] [address]- 7168 Jan, [facility] [place] [facility] [address] [id number] [place] [address]- 6459 Jan, [facility] [address] [id number] [place] [address] 3797 Jan, [facility] [facility] [address] [id number] [place] [address]- 7983 Jan, [facility] [address] [id number] [place] [address]- 1724 Jan, [facility] [address] [id number] [place] [address]- 2429 Jan, [facility] [address] [id number] [place] [address]- 7652 Jan, [facility] [address] [id number] [place] [address]- 2529 Jan, [facility] [address] [id number] [place] [address]- 5434 Jan, [facility] [address] [id number] [place] [address]- 0923 Jan, [facility] [address] [id number] [place] [address]- 4535 Dec, [facility] [address] [id number] [place] [address]- 2636 Dec, [facility] [address] [id number] [place] [address]- 0201 Dec, [facility] [address] [id number] [place] [address]- 6300 Dec, [facility] [address] [id number] [place] [address]- 2357 Nov, [facility] [address] [id number] [place] [address] Nov, [facility] [address] [id number] [place] [address]- 0395 Nov, [facility] [address] [id number] [place] [address]- 2301 Nov, [facility] [address] [id number] [place] [address]- 7902 Oct, [facility] [address] [id number] [place] [address] 3229 Oct, [facility] [address] [id number] [place] [address]- 2356 Sep, [facility] [address] [id number] [place] [address]- 5333 Sep, [facility] [address] [id number] [place] [address]- 5781 Jul, [facility] [address] [id number] [place] [address]- 7822 Jul, [facility] [address] [id number] [place] [address]- 3295 Jun, [facility] [address] [id number] [place] [address]- 8913 Jun, [facility] [address] [id number] [place] [address]- 4775 Jun, [facility] [address] [id number] [place] [address]- 3502 May, [facility] [address] [id number] [place] [address]- 6467 May, [facility] [address] [id number] [place] [address]- 0674 May, [facility] [address] [id number] [place] [address]- 9518 May, [facility] [address] [id number] [place] [address]- 7004 May, [facility] [address] [id number] [place] [address]- 6512 April, [facility] [address] [id number] [place] [address] 2526 April, [facility] [address] [id number] [place] [address]- 2406 April, [facility] [address] [id number] [place] [address]- 5691 April, [facility] [address] [id number] [place] [address]- 6452 April, [facility] [address] [id number] [place] [address]- 3243 April, [facility] [address] [id number] [place] [address]- 0054 Mar, [facility] [address] [id number] [place] [address]- 2728 Mar, [facility] [address] [id number] [place] [address]- 8751 Jan, [facility] [address] [id number] [place] [address]- 2369 Jan, [facility] [address] [id number] [place] [address]- 0119 Jan, [facility] [address] [id number] [place] [address]- 0015 05 Jan, 2013 [facility] [address] [id number] [place] [address]- 2661 13 Jan, 2012 [facility] [address] [id number] [place] [address]- 4816 12 Jan, 2012 [facility] [address] [id number] [place] [address] 2546 05 Jan, 2012 [facility] [address] [id number] [place] [address] 2546 04 Jan, 2012 [facility] [address] [id number] [place] [address] 2546 03 Jan, 2012 [facility] [address] [id number] [place] [address]- 4846 Jan, 2012 [facility] [address] [id number] [place] [address]- 0446 Jan, [facility] [address] [facility] [id number] [place] [address]- 6863 Dec, [facility] [address] [id number] [place] [address]- 6497 Nov, [facility] [address] [facility] [id number] [place] [address]- 8971 Nov, [facility] [address] [facility] [id number] [place] [address]- 3645 Nov, [facility] [address] [facility] [id number] [place] [address] 2546 Nov, [facility] [address] [id number] [place] [address] 2546 Nov, [facility] [address] [facility] [id number] [place] [address] 2544 Nov, [facility] [address] [facility] [id number] [place] [address]- 2549 Nov, [facility] [address] [facility] [id number] [place] [address]- 2549 Nov, [facility] [address] [id number] [place] [address]- 3989 Nov, [facility] [address] [id number] [place] [address]- 6152 Nov, [facility] [address] [id number] [place] [address] Nov, [facility] [address] [id number] [place] [address]- 2564 Nov, [facility] [address] [id number] [place] [address]- 2992 Nov, [facility] [address] [id number] [place] [address]- 5992 Oct, [facility] [address] [id number] [place] [address]- 7779 Oct, [facility] [address] [id number] [place] [address]- 7567 Oct, [facility] [address] [id number] [place] [address]- 6173 Sep, [facility] [address] [id number] [place] [address]- 1076 Sep, [facility] [address] [facility] [id number] [place] [address]- 1321 Sep, [facility] [address] [id number] [place] [address]- 3327 Sep, [facility] [facility] [address] [id number] [place] [address]- 4508 27 Aug, 2012 [facility] [facility] [address] [id number] [place] [address] 20 Aug, 2012 [facility] [address] [id number] [place] [address]- 5719 Jul, [facility] [address] [id number] [place] [address]- 5214 May, [facility] [address] [id number] [place] [address]- 6601 May, [facility] [address] [id number] [place] [address]- 9182 May, [facility] [address] [id number] [place] [address]- 1139 April, [facility] [address] [id number] [place] [address]- 9992 Mar, [facility] [address] [id number] [place] [address]- 9584 Mar, [facility] [address] [id number] [place] [address]- 2320 Mar, [facility] [address] [id number] [place] [address]- 5898 Jan, [facility] [address] [id number] [place] [address]- 3369 Jan, [facility] [address] [id number] [place] [address]- 9220 Jan, [facility] [address] [id number] [place] [address]- 9889 Dec, [facility] [address] [id number], [place] [address]- 8668 Dec, [facility] [address] [id number], [place] [address]- 8694 Dec, [facility] [address] [id number] [place] [address]- 2103 Dec, [facility] [address] [id number] [place] [address]- 5270 Nov, [facility] [facility] [address] [id number] [place] [address]- 2169 Nov, [facility] [place] [facility] [address] [id number] [place] [address] 03 Nov, 2011 [facility] [address] [id number] [place] [address]- 7646 03 Oct, 2011 [facility] [address] [id number] [place] [address]- 5416 31 Sep, 2011 [facility] [place] [facility] [address] [id number] [place] [address]- 9118 26 Sep, 2011 [facility] [place] [facility] [address] [id number] [place] [address] 2547 13 Sep, 2011 [facility] [address] [id number] [place] [address]- 4020 15 Nov, 2010 [facility] [place] [facility] [address] [id number] [place] [address]- 5882 23 Oct, 2010 [facility] [place] [facility] [address] [id number] [place] [address]- 1712 Oct, [facility] [place] [facility] [address] [id number] [place] [address]- 1598 18 Oct, 2010 [facility] [place] [facility] [address] [id number] [place] [address]- 3390 16 Oct, 2010 [facility] [place] [facility] [address] [facility] [id number] [place] [address]- 9436 11 Sep, 2010 [facility] [place] [facility] [address] [id number] [place] [address]- 6016 April, [facility] [place] [facility] [address] [id number] [place] [address]- 254 29 Nov, 2009 [facility] [place] [facility] [address] [id number] [place] [address] 2544 24 Nov, 2009 [facility] [place] [facility] [address] [id number] [place] [address]- 2540 22 Nov, 2009 [facility] [place] [facility] [address] [id number] [place] [address]- 5931 Nov, [facility] [address] [facility] [id number], [place] [address]- 9926 Nov, [facility] [address] [facility] [id number], [place] [address]- 2546 Oct, [facility] [address] [facility] [id number], [place] [address]- 2546 Oct, [facility] [address] [id number], [place] [address]- 2546 Sep, [facility] [address] [facility] [id number], [place] [address]- 0166 Jan, IMMUNIZATIONS No Known Immunizations SOCIAL HISTORY Never Assessed REASON FOR VISIT Pharmacy recommendation PLAN OF CARE VITAL SIGNS MEDICATIONS Medication Instructions Dosage Frequency Start Date End Date Duration Status Zantac 150 MG Orally Once a day 1 tablet at bedtime 24h Jun, 30 day(s) Active RESULTS No Results PROCEDURES No Known procedures INSTRUCTIONS MEDICATIONS ADMINISTERED No Known Medications MEDICAL (GENERAL) HISTORY Type Description Date Medical History Hypertension Medical History Heart disease CABG X3 Stress test 07/2015 Medical History Gastric ulcer Medical History Hyperlipidemia Medical History Headache syndrome Medical History Psychiatric disorders-depression/racing thoughts Medical History Depression Medical [facility]2016 Started on Eliquis Medical History Anemia 04/2016 postsurgical hip fx Surgical History right hip replacement w/ Dr. Bruce 2011 Surgical History triple bypass surgery 2003 Surgical History S/P left hip IM Nail (Intertrechanteric hip fx) 04/28/16 Hospitalization History surgeries Hospitalization History Hypertension Hospitalization History ER for a concussion 11/24/15 Hospitalization History Intertrechanteric hip fx 04/27/16 Hospitalization History [facility] (inpatient [facility] 2 times) Hx of 3 inpatient psych treatments in past in [place] oct 2016 [facility] 2016
--- OUTSIDE RECORDS SUMMARY | 2018-08-20 12:54 | XMS REPORT ---
Author Author WOLF AGUIRRE [facility] Address [address] [place] [address] Care Team Providers Care Ground Operations [employer] Member Name Role Phone WOLF AGUIRRE Unavailable PROBLEMS Type Condition ICD9-CM Code IVC63-IA Code Onset Dates Condition Status SNOMED Code Problem Sundowning F05 Active 707737201 Problem Constipation, unspecified constipation type K59.00 Active 00673764 Problem Reactive depression F32.9 Active 07545768 Problem Vascular dementia with behavior disturbance F01.51 Active 396062023488762 Problem Insomnia, unspecified type G47.00 Active 351472097 Problem Generalized anxiety disorder F41.1 Active 22039972 Problem Other chronic pain G89.29 Active 74778294 Problem Severe episode of recurrent major depressive disorder, without psychotic features F33.2 Active 74974202 Problem Slow transit constipation K59.01 Active 20548544 Problem 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 Active 406113433 Problem Obsessive thinking F42.8 Active 63035816 Problem Failure to thrive in adult R62.7 Active 174796277 Problem Dysthymic disorder F34.1 Active 61574041 Problem Hypertension I10 Active 04753196 Problem Mood disorder F39 Active 81286949 Problem Irritable bowel syndrome with diarrhea K58.0 Active 383356567 Problem Oropharyngeal dysphagia R13.12 Active 59127917 Problem 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 Active 80744284 Problem Other chronic pain G89.29 Active 05769975 Problem Primary insomnia F51.01 Active 6052839 Problem Poor appetite R63.0 Active 40015283 Problem 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 Active 280358179214988 Problem Iron deficiency anemia secondary to inadequate dietary iron intake D50.8 Active 188677774 Problem Coarse tremors G25.2 Active 76431634 Problem Gastroesophageal reflux disease without esophagitis K21.9 Active 168393048 Problem Essential hypertension I10 Active 95221359 ALLERGIES No Information ENCOUNTERS Encounter Location Date Diagnosis [facility] [address] [address] Jul, [facility] [id number] [place] [address] 34056- 5044 Jun, [facility] [id number] [place] [address] 08932- 2332 Jun, [facility] [address] [place] [id number] Jun, Left lower quadrant pain R10.32 and Left leg pain M79.605 [facility] [id number] [place] [address] 89417- 1279 Jun, [facility] [address] [place] [id number] Jun, Pain in left hip M25.552 ; Pain in right hip M25.551 and Primary insomnia F51.01 [facility] [id number] [place] [address] 95126- 0656 Jun, [facility] [address] [place] [id number] May, [facility] [id number] [place] [address] 00269- 9320 May, [facility] [id number] [place] [address] 10994- 0442 May, [facility] [address] [place] [id number] May, Mood disorder F39 [facility] [address] [address] May, [facility] [id number] [place] [address] 04409- 1332 April, [facility] [address] [place] [id number] April, Generalized anxiety disorder F41.1 ; Obsessive thinking F42.8 and Insomnia , unspecified type G47.00 [facility] [address] [address] 64[address] April, [facility] [id number] [place] [address] 26996- 9240 April, Rash of face R21 [facility] [address] [address] 88[address] Mar, [facility] [id number] [place] [address] 27592- 2097 Mar, [facility] [id number] [place] [address] 60599- 1259 Mar, [facility] [id number] [place] [address] 98124- 4356 Jan, [facility] [id number] [place] [address] 35912- 8203 Jan, [facility] [id number] Jan, Constipation, unspecified constipation type K59.00 and Other chronic pain G89.29 [facility] [id number] [place] [address] 45464- 1862 Jan, [facility] [address] [id number] Jan, Obsessive thinking F42.8 and Coarse tremors G25.2 [facility] [id number] [place] [id number] Jan, [facility] [id number] [address] Jan, [facility] [address] [id number] Jan, Generalized anxiety disorder F41.1 ; Obsessive thinking F42.8 ; Callus of foot L84 and 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 [facility] [address] [address] 0108 Dec, Generalized anxiety disorder F41.1 and Severe episode of recurrent major depressive disorder, without psychotic features F33.2 [facility] [address] [address] 1585 Nov, [facility] [address] [address]- 7142 Nov, [facility] [address] [place] [id number] Nov, Oropharyngeal dysphagia R13.12 ; Generalized anxiety disorder F41.1 and 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 [facility] [address] [address] 6198 Nov, [facility] [id number] [place] [id number] Nov, [facility] [id number] [place] [address] 87471- 2217 Nov, [facility] [address] [place] [address] 80294- 1629 Nov, [facility] [address] [place] [address] 19306- 4466 Oct, Constipation, unspecified constipation type K59.00 and Mood disorder F39 [facility] [address] [address] 8946 Oct, [facility] [id number] [place] [address] [id number] Sep, [facility] [address] [id number] Sep, [facility] [id number] [place] [id number] Sep, [facility] [id number] [place] [address] [id number] Sep, [facility] [address] [place] [address] Sep, Generalized abdominal pain R10.84 [facility] [address] [address] 2756 Sep, [facility] [id number] [address] Sep, Generalized anxiety disorder F41.1 and Primary insomnia F51.01 [facility] [id number] [address] Aug, [facility] [id number] [place] [id number] Aug, Generalized anxiety disorder F41.1 [facility] [id number] [address] 38[address] Jul, [facility] [address] [place] [id number] Jul, Obsessive thinking F42.8 [facility] [address] [address] 8636 Jul, Generalized anxiety disorder F41.1 and Irritable bowel syndrome with diarrhea K58.0 [facility] [id number] [address] Jul, Generalized anxiety disorder F41.1 [facility] [id number] [place] [id number] Jun, Generalized anxiety disorder F41.1 [facility] [id number] [address] 5[address] May, [facility] [address] [place] [address] May, Generalized anxiety disorder F41.1 ; Irritable bowel syndrome with diarrhea K58.0 and Coarse tremors G25.2 [facility] [address] [address] April, [facility] [address] [address] 56[address] April, [facility] [address] [address] 4908 April, [facility] [address] [address]- 4485 Mar, [facility] [address] [place] [id number] Mar, Severe episode of recurrent major depressive disorder, without psychotic features F33.2 and Pain in left hip M25.552 [facility] [address] [place] [address] 82319- 0826 Mar, [facility] [id number] [place] [address] 95773- 9641 Mar, [facility] [id number] [place] [address] 25096- 1670 Mar, [facility] [id number] [place] [address] 29983- 2879 Mar, Pain in right hip M25.551 and Self-care deficit in patient living alone R46.89 [facility] [id number] [place] [address] 95606 -1995 Jan, Other chronic pain G89.29 ; Pain in left hip M25.552 and Slow transit constipation K59.01 [facility] [address] [place] [address] 89847- 7064 Jan, [facility] [address] [place] [address] 23436- 3893 Dec, Other depression F32.89 ; Constipation, unspecified constipation type K59.00 and Insomnia, unspecified type G47.00 [facility] [address] [place] [address] 06313- 1122 Nov, Reactive depression F32.9 ; Chronic idiopathic constipation K59.04 ; Generalized anxiety disorder F41.1 ; Coarse tremors G25.2 ; Gastroesophageal reflux disease without esophagitis K21.9 ; Dysthymic disorder F34.1 ; Vitamin deficiency, unspecified E56.9 and Primary insomnia F51.01 [facility] [id number] [place] [address] 45740- 2824 Nov, [facility] [id number] [place] [address] 93637- 4240 Nov, [facility] [id number] [place] [address] 71492- 2407 Nov, [facility] [id number] [place] [address] 14289- 0254 Nov, Reactive depression F32.9 ; Essential hypertension I10 ; Generalized anxiety disorder F41.1 ; 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 ; Pain in right hip M25.551 ; Other chronic pain G89.29 ; Chronic idiopathic constipation K59.04 ; Primary insomnia F51.01 ; Coarse tremors G25.2 ; Gastroesophageal reflux disease without esophagitis K21.9 ; Iron deficiency anemia secondary to inadequate dietary iron intake D50.8 and Vitamin deficiency, unspecified E56.9 [facility] [id number] [place] [address] 14365- 7738 Oct, [facility] [id number] [place] [address] 68851- 1446 Oct, [facility] [id number] [place] [address] 15338- 8732 Oct, [facility] [id number] [place] [address] 66668- 3077 Oct, Generalized anxiety disorder F41.1 ; Poor appetite R63.0 ; Dehydration E86.0 and Failure to thrive in adult R62.7 [facility] [id number] [place] [address] 59159- 3120 07 Oct, 2016 Generalized anxiety disorder F41.1 and Failure to thrive in adult R62.7 [facility] [id number] [place] [address] 45803- 0217 Oct, [facility] [id number] [place] [address] 92964- 0042 Oct, [facility] [id number] [place] [address] 47385 -9470 Sep, Vaginal discharge N89.8 and Acute cystitis with hematuria N30.01 [facility] [id number] [place] [address] 19546- 8790 Sep, [facility] [id number] [place] [address] 53013- 6708 Sep, [facility] [place] [address] 27742- 2495 Sep, Dysthymic disorder F34.1 ; Acute vaginitis N76.0 ; Dysuria R30.0 and Vaginal yeast infection B37.3 [facility] [id number] [place] [address] 73695- 0347 Aug, [place] [facility] [address] 49040- 5403 Aug, [facility] [id number] [place] [address] 98803 -8823 Aug, Foul smelling urine R82.90 ; Rapid heart rate R00.0 and Flatulence R14.3 [facility] [id number] [place] [address] 93699- 6103 Aug, [facility] [id number] [place] [address] 38473- 3743 Jul, Constipation, unspecified constipation type K59.00 ; Weak R53.1 ; Poor appetite R63.0 ; Coronary artery disease involving tulalip heart without angina pectoris, unspecified vessel or lesion type I25.10 ; Fatigue, unspecified type R53.83 ; Urinary incontinence, unspecified type R32 and Insomnia, unspecified type G47.00 [facility] [id number] [place] [address] 21614- 4101 Jul, [place] [facility] [id number] [place] [address] 56233- 0226 Jun, Dysuria R30.0 [facility] [id number] [place] [address] 43525- 0402 Jun, [facility] [address] 80270- 7855 Jun, Urinary tract infection, site not specified N39.0 ; Acute vaginitis N76.0 and Diarrhea, unspecified type R19.7 [facility] [address] 90633- 6554 May, [facility] [id number] [place] [address] 15330- 7373 April, [facility] [address] [id number] April, Encounter for dental examination Z01.20 [facility] [address] 39410- 3041 April, [facility] [address] 71854- 2175 April, Tremor R25.1 and Episodic tension-type headache, not intractable G44.219 [facility] [id number] [place] [address] 09364- 4732 Mar, [facility] [id number] [place] [address] 70164- 4410 Jan, Mood disorder F39 [facility] [id number] [place] [address] 32677 -2401 Jan, [facility] [id number] [place] [address] 84878- 0029 Jan, [facility] [address] 44278- 2770 Jan, [facility] [id number] [place] [address] 28959- 6162 Jan, [facility] [id number] [place] [address] 40315- 4699 Jan, [facility] [address] [place] [address] 32720- 8118 Jan, [facility] [id number] [place] [address] 84261 -4242 Dec, Acute diarrhea R19.7 [facility] [id number] [place] [address] 00047- 3303 Dec, [facility] [id number] [place] [address] 45438- 9473 Dec, [facility] [id number] [place] [address] 61577- 9720 Dec, [facility] [id number] [place] [address] 77603 -2841 Dec, N&V (nausea and vomiting) R11.2 [facility] [id number] [place] [address] 44831- 2878 Dec, Generalized anxiety disorder F41.1 [facility] [id number] [place] [address] 74169- 5512 Dec, Generalized anxiety disorder F41.1 [facility] [id number] [place] [address] 52658- 8911 Nov, Post concussion syndrome F07.81 [facility] [id number] [place] [address] 65395- 5467 Nov, Generalized anxiety disorder F41.1 [facility] [id number] [place] [address] 88893- 3132 Nov, [facility] [id number] [place] [address] 37956- 1247 Nov, Generalized anxiety disorder F41.1 [facility] [address] [place] [address] [id number] Oct, Dental caries K02.9 [facility] [id number] [place] [address] 61461- 7810 Oct, [facility] [address] [place] [address] [id number] Oct, Dental examination Z01.20 [facility] [id number] [place] [address] [id number] 10 Oct, 2015 Encounter for dental examination Z01.20 [facility] [address] 46479- 9033 Oct, CAD (coronary artery disease) I25.10 [facility] [id number] [place] [address] 07806- 7235 Sep, Generalized anxiety disorder F41.1 [facility] [place] [id number] [place] [address] 71864- 1314 Sep, [place] [address] 10204- 2765 Sep, Rash and other nonspecific skin eruption R21 and Yeast vaginitis B37.3 [facility] [place] [id number] [place] [address] 26258- 3017 Sep, Generalized anxiety disorder F41.1 [facility] [place] [id number] [place] [address] 37912- 2361 Aug, Insect bites 919.4 and Hemorrhoids 455.6 [place] [address] 12427- 1834 Aug, Generalized anxiety disorder 300.02 [facility] [id number] [place] [address] 29567- 3678 Aug, [place] [address] 28730- 4668 Aug, [facility] [address] 65839- 0524 Aug, Generalized anxiety disorder 300.02 ; No condition on [place] II V71.09 ; Heart problem 429.9 and Hypertension 401.9 [place] [address] [facility] [id number] [address]- 0797 Aug, [facility] [address] [address]- 3747 Jul, [facility] [address] [facility] [id number] [address]- 4963 Jul, [facility] [address] [address]- 1524 Jul, [facility] [address] [facility] [id number] [place] [address]- 4733 Jul, [facility] [address] [address]- 0296 Jul, Rash 782.1 [facility] [address] [address]- 7221 Jul, UTI (urinary tract infection) 599.0 [facility] [address] [address]- 2618 Jul, [facility] [address] [address]- 3056 Jun, Dysthymia 300.4 and Anxiety 300.00 [facility] [address] [address]- 2675 Jun, 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 [facility] [address] [address]- 1511 May, [facility] [id number] [address]- 4576 May, [facility] [address] [address]- 9783 May, Unspecified breast screening V76.10 [facility] [address] [id number] [place] [address] May, Dental examination V72.2 [facility] [address] [place] [address]- 7046 April, [facility] [address] [id number] [address]- 2966 April, [facility] [place] [facility] [address] [id number] [place] [id number] April, Dental examination V72.2 [facility] [address] [id number] [place] [id number] April, Dental examination V72.2 [facility] [address] [id number] [place] [address]- 4424 Mar, [facility] [place] [facility] [address] [id number] [place] [address]- 4857 Mar, [facility] [place] [facility] [address] [id number] [place] [address]- 7751 Jan, [facility] [place] [facility] [address] [id number] [place] [address]- 4664 25 Jan, 2015 [facility] [place] [facility] [address] [id number] [place] [address]- 8055 18 Jan, 2015 [facility] [place] [facility] [address] [id number] [place] [address]- 3416 18 Jan, 2015 [facility] [place] [facility] [address] [id number] [place] 0570 16 Jan, 2015 [facility] [place] [facility] [address] [id number] [place] [address]- 3791 16 Jan, 2015 [facility] [place] [facility] [address] [id number] [place] 6099 13 Jan, 2015 [facility] [place] [facility] [address] [id number] [place] 6963 13 Jan, 2015 [facility] [place] [facility] [address] [id number] [address]- 1480 11 Jan, 2015 [facility] [place] [facility] [address] [id number] [place] [address]- 4056 Jan, [facility] [place] [facility] [address] [id number] [place] [address]- 5129 Jan, [facility] [place] [facility] [address] [id number] [place] [address]- 5451 Jan, [facility] [place] [facility] [address] [facility] [id number] [place] [address]- 5861 Jan, [facility] [place] [facility] [address] [id number] [place] [address] Jan, [facility] [place] [facility] [address] [id number] [place] [address] Jan, [facility] [place] [facility] [address] [facility] [id number] [place] [address] Jan, [facility] [place] [facility] [address] [facility] [id number] [place] [address] Jan, [facility] [place] [facility] [address] [facility] [id number] [place] [address] Jan, [facility] [place] [facility] [address] [facility] [id number] [place] [address] Jan, [facility] [place] [facility] [address] [facility] [id number] [place] [address] Jan, [facility] [place] [facility] [address] [facility] [id number] [place] [address] Jan, [facility] [place] [facility] [address] [facility] [id number] [place] [address] Jan, [facility] [place] [facility] [address] [id number] [place] [address] Dec, [facility] [place] [facility] [address] [facility] [id number] [place] [address] Dec, [facility] [place] [facility] [address] [facility] [id number] [place] [address] Dec, [facility] [place] [facility] [address] [id number] [place] [address] Dec, [facility] [place] [facility] [address] [id number] [place] [address] Nov, [facility] [place] [facility] [address] [id number] [place] [address] Nov, [facility] [place] [facility] [address] [id number] [place] [address] Nov, [facility] [place] [facility] [address] [id number] [place] [address] Nov, [facility] [place] [facility] [address] [id number] [place] [address] Nov, [facility] [place] [facility] [address] [id number] [place] [address] Nov, [facility] [place] [facility] [address] [id number] [place] [address] Nov, [facility] [place] [facility] [address] [id number] [place] [address] Oct, [facility] [place] [facility] [address] [id number] [place] [address] Oct, [facility] [place] [facility] [address] [id number] [place] [address] Oct, [facility] [place] [facility] [address] [id number] [place] [address] Oct, [facility] [place] [facility] [address] [id number] [place] [address] Oct, [facility] [place] [facility] [address] [id number] [place] [address] 07[address] Oct, [facility] [place] [facility] [address] [id number] [place] [address] 6[address] Oct, [facility] [place] [facility] [address] [id number] [place] [address] 8696 Oct, [facility] [place] [facility] [address] [id number] [place] [address]- 6677 Oct, [facility] [place] [facility] [address] [id number] [place] [address]- 8936 Oct, [facility] [place] [facility] [address] [id number] [place] [address]- 4917 Oct, [facility] [place] [facility] [address] [id number] [place] [address]- 1123 Oct, [facility] [place] [facility] [address] [id number] [place] [address]- 04[address] Sep, [facility] [place] [facility] [address] [id number] [place] [address]- 0911 Sep, [facility] [place] [facility] [address] [id number] [place] [address]- 4081 Sep, [facility] [place] [facility] [address] [id number] [place] [address]- 60[address] Sep, [facility] [place] [facility] [address] [id number] [place] [address]- 8485 Jul, [facility] [place] [facility] [address] [id number] [place] [address]- 9583 Jul, [facility] [place] [facility] [address] [id number] [place] [address]- 8135 Jul, [facility] [place] [facility] [address] [id number] [place] [address]- 6787 Jul, [facility] [place] [facility] [address] [id number] [place] [address]- [address] Jun, [facility] [place] [facility] [address] [id number] [place] [address]- 4457 Jun, [facility] [place] [facility] [address] [id number] [place] [address]- 2664 Jun, [facility] [place] [facility] [address] [id number] [place] [address]- 0371 Jun, [facility] [address] [id number] [place] [address] 0051 May, [facility] [address] [id number] [place] [address] May, [facility] [address] [id number] [place] [address]- 9141 April, [facility] [address] [id number] [place] [address]- 2367 April, [facility] [address] [id number] [place] [address]- 0155 April, [facility] [address] [id number] [place] [address]- 8278 April, [facility] [address] [id number] [place] [address]- 7669 April, [facility] [address] [id number] [place] [address]- 8274 April, [facility] [address] [id number] [place] [address]- 0365 April, [facility] [address] [id number] [place] [address]- 6623 April, [facility] [address] [id number] [place] [address]- 1499 April, [facility] [address] [id number] [place] [address]- 6045 Mar, [facility] [place] [facility] [address] [id number] [place] [address]- 5880 Mar, [facility] [address] [id number] [place] [address]- 4397 Mar, [facility] [address] [id number] [place] [address]- 2856 Mar, [facility] [place] [facility] [address] [id number] [place] [address]- 5582 Jan, [facility] [place] [facility] [address] [id number] [place] [address]- 1207 Jan, [facility] [place] [facility] [address] [id number] [place] [address]- 9909 Jan, [facility] [place] [facility] [address] [id number] [place] [address]- 7797 Jan, [facility] [place] [facility] [address] [id number] [place] [address]- 8331 Jan, [facility] [place] [facility] [address] [id number] [place] [address]- 8097 Jan, [facility] [place] [facility] [address] [id number] [place] [address]- 6811 Jan, [facility] [place] [facility] [address] [id number] [place] [address]- 9904 Jan, [facility] [place] [facility] [address] [id number] [place] [address]- 9588 Jan, [facility] [place] [facility] [address] [id number] [place] [address]- 0325 Jan, [facility] [place] [facility] [address] [id number] [place] [address]- 3962 Jan, [facility] [place] [facility] [address] [id number] [place] [address]- 7886 Jan, [facility] [place] [facility] [address] [id number] [place] [address]- 5902 Dec, [facility] [place] [facility] [address] [id number] [place] [address]- 3649 Dec, [facility] [place] [facility] [address] [id number] [place] [address]- 6149 Dec, [facility] [place] [facility] [address] [id number] [place] [address]- 0200 Dec, [facility] [address] [id number] [place] [address]- 9051 Nov, [facility] [place] [facility] [address] [id number] [place] [address] Nov, [facility] [place] [facility] [address] [id number] [place] [address]- 7065 Nov, [facility] [place] [facility] [address] [id number] [place] [address]- 2143 Nov, [facility] [place] [facility] [address] [id number] [place] [address]- 2264 Oct, [facility] [place] [facility] [address] [id number] [place] [address]- 5639 Oct, [facility] [place] [facility] [address] [id number] [place] [address]- 9508 Sep, [facility] [place] [facility] [address] [id number] [place] [address]- 5871 Sep, [facility] [place] [facility] [address] [id number] [place] [address]- 4961 Jul, [facility] [place] [facility] [address] [id number] [place] [address]- 9662 Jul, [facility] [place] [facility] [address] [id number] [place] [address]- 7184 Jun, [facility] [place] [facility] [address] [id number] [place] [address]- 1739 Jun, [facility] [place] [facility] [address] [id number] [place] [address]- 4836 Jun, [facility] [place] [facility] [address] [id number] [place] [address]- 7435 May, [facility] [place] [facility] [address] [id number] [place] [address]- 9478 May, [facility] [place] [facility] [address] [id number] [place] [address]- 9343 May, [facility] [address] [id number] [place] [address]- 6082 May, [facility] [address] [id number] [place] [address]- 0239 May, [facility] [address] [id number] [place] [address]- 1496 April, [facility] [address] [id number] [place] [address]- 9628 April, [facility] [address] [id number] [place] [address]- 0787 April, [facility] [address] [id number] [place] [address]- 0301 April, [facility] [address] [id number] [place] [address]- 8131 April, [facility] [address] [id number] [place] [address]- 6273 April, [facility] [address] [id number] [place] [address]- 1453 Mar, [facility] [address] [id number] [place] [address]- 8291 Mar, [facility] [address] [id number] [place] [address]- 8987 Jan, [facility] [place] [facility] [address] [id number] [place] [address]- 1785 Jan, [facility] [place] [facility] [address] [id number] [place] [address]- 3083 Jan, [facility] [place] [facility] [address] [id number] [place] [address]- 8211 05 Jan, 2013 [facility] [place] [facility] [address] [id number] [place] [address]- 9907 13 Jan, 2012 [facility] [address] [id number] [place] [address]- 6076 12 Jan, 2012 [facility] [address] [id number] [place] [address] 2546 05 Jan, 2012 [facility] [address] [id number] [place] [address] 2546 04 Jan, 2012 [facility] [address] [id number] [place] [address] 2546 03 Jan, 2012 [facility] [address] [id number] [place] [address]- 4366 Jan, 2012 [facility] [address] [id number] [place] [address]- 8536 Jan, [facility] [address] [facility] [id number] [place] [address]- 7693 Dec, [facility] [address] [id number] [place] [address]- 3145 Nov, [facility] [address] [facility] [id number] [place] [address]- 5109 Nov, [facility] [address] [facility] [id number] [place] [address]- 3397 Nov, [facility] [address] [facility] [id number] [place] [address] 2546 Nov, [facility] [address] [id number] [place] [address] 2546 Nov, [facility] [address] [facility] [id number] [place] [address] 2543 Nov, [facility] [address] [facility] [id number] [place] [address]- 2542 Nov, [facility] [address] [facility] [id number] [place] [address]- 2545 Nov, [facility] [place] [facility] [address] [id number] [place] [address]- 0135 Nov, [facility] [place] [facility] [address] [id number] [place] [address]- 8329 Nov, [facility] [place] [facility] [address] [id number] [place] [address] Nov, [facility] [place] [facility] [address] [id number] [place] [address]- 1409 Nov, [facility] [place] [facility] [address] [id number] [place] [address]- 5175 Nov, [facility] [place] [facility] [address] [id number] [place] [address]- 9000 Oct, [facility] [place] [facility] [address] [id number] [place] [address]- 4879 Oct, [facility] [place] [facility] [address] [id number] [place] [address]- 6475 Oct, [facility] [place] [facility] [address] [id number] [place] [address]- 1359 Sep, [facility] [place] [facility] [address] [id number] [place] [address]- 6784 Sep, [facility] [place] [facility] [address] [facility] [id number] [place] [address]- 9453 Sep, [facility] [place] [facility] [address] [id number] [place] [address]- 1937 Sep, [facility] [place] [facility] [address] [id number] [place] [address]- 6951 27 Aug, 2012 [facility] [place] [facility] [address] [id number] [place] [address]67 20 Aug, 2012 [facility] [place] [facility] [address] [id number] [place] [address]- 0009 Jul, [facility] [place] [facility] [address] [id number] [place] [address]- 2836 May, [facility] [address] [id number] [place] [address]- 5859 May, [facility] [place] [facility] [address] [id number] [place] [address]- 4351 May, [facility] [place] [facility] [address] [id number] [place] [address]- 6894 April, [facility] [place] [facility] [address] [id number] [place] [address]- 2776 Mar, [facility] [place] [facility] [address] [id number] [place] [address]- 9019 Mar, [facility] [place] [facility] [address] [id number] [place] [address]- 0793 Mar, [facility] [place] [facility] [address] [id number] [place] [address]- 3840 Jan, [facility] [place] [facility] [address] [id number] [place] [address]- 0662 Jan, [facility] [place] [facility] [address] [id number] [place] [address]- 5191 Jan, [facility] [place] [facility] [address] [id number] [place] [address]- 2702 Dec, [facility] [place] [facility] [address] [id number] [place] [address]- 1047 Dec, [facility] [place] [facility] [address] [id number] [place] [address]- 5549 Dec, [facility] [place] [facility] [address] [id number] [place] [address]- 4698 Dec, [facility] [place] [facility] [address] [id number] [place] [address]- 4209 Nov, [facility] [place] [facility] [address] [id number] [place] [address]- 4978 Nov, [facility] [place] [facility] [address] [id number] [place] [address] 03 Nov, 2011 [facility] [address] [id number] [place] [address]- 2898 03 Oct, 2011 [facility] [place] [facility] [address] [id number] [place] [address]- 1386 31 Sep, 2011 [facility] [place] [facility] [address] [id number] [place] [address]- 4857 26 Sep, 2011 [facility] [place] [facility] [address] [id number] [place] [address] 2549 13 Sep, 2011 [facility] [address] [id number] [place] [address]- 9002 15 Nov, 2010 [facility] [place] [facility] [address] [id number] [place] [address]- 0928 23 Oct, 2010 [facility] [place] [facility] [address] [id number] [place] [address]- 7336 Oct, [facility] [place] [facility] [address] [id number] [place] [address]- 6436 18 Oct, 2010 [facility] [place] [facility] [address] [id number] [place] [address]- 8093 16 Oct, 2010 [facility] [place] [facility] [address] [facility] [id number] [place] [address]- 9255 11 Sep, 2010 [facility] [place] [facility] [address] [id number] [place] [address]- 8873 April, [facility] [place] [facility] [address] [id number] [place] [address]- 2540 29 Nov, 2009 [facility] [place] [facility] [address] [id number] [place] [address] 2548 24 Nov, 2009 [facility] [place] [facility] [address] [id number] [place] [address]- 2542 22 Nov, 2009 [facility] [place] [facility] [address] [id number] [place] [address]- 8983 Nov, [facility] [address] [facility] [id number] [place] [address]- 2376 Nov, [facility] [address] [facility] [id number] [place] [address]- 7716 Oct, [facility] [address] [facility] [id number] [place] [address]- 3282 Oct, [facility] [address] [facility] [id number] [place] [address]- 8148 Sep, [facility] [address] [facility] [id number] [place] [address]- 4536 Jan, IMMUNIZATIONS No Known Immunizations SOCIAL HISTORY [...] History Intertrechanteric hip fx 04/27/16 Hospitalization History [facility] (inpatient [facility] times) Hx of 3 inpatient psych treatments in past in [place] oct 2016 [facility] 2016
--- OUTSIDE RECORDS SUMMARY | 2018-08-20 12:55 | XMS REPORT ---
Author Author WOLF AGUIRRE [facility] Address [address] [place] [address] Care Team Providers Care Travograph Operator Name Role Phone WOLF AGUIRRE Unavailable PROBLEMS Type Condition ICD9-CM Code [id number] Code Onset Dates Condition Status SNOMED Code Problem Sundowning F05 Active 454857649 Problem Constipation, unspecified constipation type K59.00 Active 12369974 Problem Reactive depression F32.9 Active 44835374 Problem Vascular dementia with behavior disturbance F01.51 Active 917881419704144 Problem Insomnia, unspecified type G47.00 Active 246194775 Problem Generalized anxiety disorder F41.1 Active 82520704 Problem Other chronic pain G89.29 Active 22702036 Problem Severe episode of recurrent major depressive disorder, without psychotic features F33.2 Active 55843906 Problem Slow transit constipation K59.01 Active 99944374 Problem 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 Active 956867449 Problem Obsessive thinking F42.8 Active 89911200 Problem Failure to thrive in adult R62.7 Active 835187249 Problem Dysthymic disorder F34.1 Active 37912821 Problem Hypertension I10 Active 23870492 Problem Mood disorder F39 Active 33603723 Problem Irritable bowel syndrome with diarrhea K58.0 Active 741972101 Problem Oropharyngeal dysphagia R13.12 Active 40934301 Problem 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 Active 63521940 Problem Other chronic pain G89.29 Active 82741965 Problem Primary insomnia F51.01 Active 8631162 Problem Poor appetite R63.0 Active 45978442 Problem Atherosclerotic heart disease of [place] 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 Active [id number] Problem Iron deficiency anemia secondary to inadequate dietary iron intake D50.8 Active 508402572 Problem Coarse tremors G25.2 Active 05976514 Problem Gastroesophageal reflux disease without esophagitis K21.9 Active 197137771 Problem Essential hypertension I10 Active 27781742 ALLERGIES No Information ENCOUNTERS Encounter Location Date Diagnosis [facility] [address] [address] Jul, [facility] [id number] [place] [address] 76635- 5608 Jun, [facility] [id number] [place] [address] 72064- 9820 Jun, [facility] [address] [place] [id number] Jun, Left lower quadrant pain R10.32 and Left leg pain M79.605 [facility] [id number] [place] [address] 95806- 4944 Jun, [facility] [address] [id number] Jun, Pain in left hip M25.552 ; Pain in right hip M25.551 and Primary insomnia F51.01 [facility] [address] [place] [address] 40812- 3839 Jun, [facility] [address] [id number] May, [facility] [address] [place] [address] 07290- 3278 May, [facility] [address] [place] [address] 84635- 0873 May, [facility] [address] [id number] May, Mood disorder F39 [facility] [address] [address] 3218 May, [facility] [id number] [place] [address] 34722- 1074 April, [facility] [address] [id number] April, Generalized anxiety disorder F41.1 ; Obsessive thinking F42.8 and Insomnia , unspecified type G47.00 [facility] [address] [address] 6866 April, [facility] [address] [place] [address] 33210- 3111 April, Rash of face R21 [facility] [address] [address] 3828 Mar, [facility] [id number] [place] [address] 22051- 3168 Mar, [facility] [address] [place] [address] 90566- 9128 Mar, [facility] [id number] [place] [address] 38243- 4668 Jan, [facility] [id number] [place] [address] 45135- 8608 Jan, [facility] [id number] Jan, Constipation, unspecified constipation type K59.00 and Other chronic pain G89.29 [facility] [id number] [place] [address] 11190- 9322 Jan, [facility] [address] [id number] Jan, Obsessive thinking F42.8 and Coarse tremors G25.2 [facility] [id number] [place] [address] [id number] Jan, [facility] [id number] [address] Jan, [facility] [address] [id number] Jan, Generalized anxiety disorder F41.1 ; Obsessive thinking F42.8 ; Callus of foot L84 and 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 [facility] [address] [address] 0431 Dec, Generalized anxiety disorder F41.1 and Severe episode of recurrent major depressive disorder, without psychotic features F33.2 [facility] [address] [address]- 1235 Nov, [facility] [address] [address]- 0426 Nov, [facility] [address] [id number] Nov, Oropharyngeal dysphagia R13.12 ; Generalized anxiety disorder F41.1 and 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00 and Mood disorder F39 [facility] [address] [address]- 5296 Oct, [facility] [id number] [place] [id number] Sep, [facility] [id number] [id number] Sep, [facility] [id number] [place] [address] [id number] Sep, [facility] [id number] [place] [address] [id number] Sep, [facility] [address] [id number] Sep, Generalized abdominal pain R10.84 [facility] [address] [address]- 8636 Sep, [facility] [id number] [address] Sep, Generalized anxiety disorder F41.1 and Primary insomnia F51.01 [facility] [id number] [place] [id number] Aug, [facility] [id number] [place] [address] [id number] Aug, Generalized anxiety disorder F41.1 [facility] [id number] [address]- 9517 Jul, [facility] [address] [id number] Jul, Obsessive thinking F42.8 [facility] [address] [address]- 1083 Jul, Generalized anxiety disorder F41.1 and Irritable bowel syndrome with diarrhea K58.0 [facility] [id number] [place] [id number] Jul, Generalized anxiety disorder F41.1 [facility] [id number] [place] [address] [id number] Jun, Generalized anxiety disorder F41.1 [facility] [id number] [address]- 6886 May, [facility] [address] [id number] May, Generalized anxiety disorder F41.1 ; Irritable bowel syndrome with diarrhea K58.0 and Coarse tremors G25.2 [facility] [address] [address] [address]776 April, [facility] [address] [address]- 5977 April, [facility] [address] [address]- 5851 April, [facility] [address] [address]- 8790 Mar, [facility] [address] [id number] Mar, Severe episode of recurrent major depressive disorder, without psychotic features F33.2 and Pain in left hip M25.552 [facility] [address] [place] [address] 73666- 6844 Mar, [facility] [id number] [place] [address] 77181- 9340 Mar, [facility] [id number] [place] [address] 67450- 7734 Mar, [facility] [id number] [place] [address] 88173- 0951 Mar, Pain in right hip M25.551 and Self-care deficit in patient living alone R46.89 [facility] [id number] [place] [address] 42946 -8571 Jan, Other chronic pain G89.29 ; Pain in left hip M25.552 and Slow transit constipation K59.01 [facility] [address] [place] [address] 01946- 3020 Jan, [facility] [address] [place] [address] 68029- 7472 Dec, Other depression F32.89 ; Constipation, unspecified constipation type K59.00 and Insomnia, unspecified type G47.00 [facility] [address] [place] [address] 60916- 6983 Nov, Reactive depression F32.9 ; Chronic idiopathic constipation K59.04 ; Generalized anxiety disorder F41.1 ; Coarse tremors G25.2 ; Gastroesophageal reflux disease without esophagitis K21.9 ; Dysthymic disorder F34.1 ; Vitamin deficiency, unspecified E56.9 and Primary insomnia F51.01 [facility] [id number] [place] [address] 05196- 6616 Nov, [facility] [id number] [place] [address] 55180- 9959 Nov, [facility] [place] [id number] [place] [address] 57359- 4672 Nov, [facility] [id number] [place] [address] 17194- 2293 Nov, Reactive depression F32.9 ; Essential hypertension I10 ; Generalized anxiety disorder F41.1 ; Atherosclerotic heart disease of [place] 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 ; Pain in right hip M25.551 ; Other chronic pain G89.29 ; Chronic idiopathic constipation K59.04 ; Primary insomnia F51.01 ; Coarse tremors G25.2 ; Gastroesophageal reflux disease without esophagitis K21.9 ; Iron deficiency anemia secondary to inadequate dietary iron intake D50.8 and Vitamin deficiency, unspecified E56.9 [facility] [id number] [place] [address] 26203- 7539 Oct, [facility] [id number] [place] [address] 17954- 0515 Oct, [facility] [id number] [place] [address] 90835- 5727 Oct, [facility] [id number] [place] [address] 26567- 7074 Oct, Generalized anxiety disorder F41.1 ; Poor appetite R63.0 ; Dehydration E86.0 and Failure to thrive in adult R62.7 [facility] [id number] [place] [address] 93517- 8778 07 Oct, 2016 Generalized anxiety disorder F41.1 and Failure to thrive in adult R62.7 [facility] [id number] [place] [address] 71969- 4668 Oct, [facility] [place] [id number] [place] [address] 52743- 8519 Oct, [facility] [address] [place] [address] 75200 -6175 Sep, Vaginal discharge N89.8 and Acute cystitis with hematuria N30.01 [facility] [id number] [place] [address] 18712- 3846 Sep, [facility] [id number] [place] [address] 44573- 3445 Sep, [facility] [address] 16627- 2780 Sep, Dysthymic disorder F34.1 ; Acute vaginitis N76.0 ; Dysuria R30.0 and Vaginal yeast infection B37.3 [facility] [id number] [place] [address] 87650- 0062 Aug, [facility] [place] [address] 93676- 2094 Aug, [facility] [id number] [place] [address] 86849 -7300 Aug, Foul smelling urine R82.90 ; Rapid heart rate R00.0 and Flatulence R14.3 [facility] [id number] [place] [address] 79238- 3063 Aug, [facility] [id number] [place] [address] 93629- 6447 Jul, Constipation, unspecified constipation type K59.00 ; Weak R53.1 ; Poor appetite R63.0 ; Coronary artery disease involving [place] heart without angina pectoris, unspecified vessel or lesion type I25.10 ; Fatigue, unspecified type R53.83 ; Urinary incontinence, unspecified type R32 and Insomnia, unspecified type G47.00 [facility] [id number] [place] [address] 90851- 1954 Jul, [facility] [id number] [place] [address] 33624- 3651 Jun, Dysuria R30.0 [facility] [id number] [place] [address] 70525- 2254 Jun, [facility] [address] 35845- 1217 Jun, Urinary tract infection, site not specified N39.0 ; Acute vaginitis N76.0 and Diarrhea, unspecified type R19.7 [facility] [address] 32170- 6606 May, [facility] [id number] [place] [address] 70423- 2909 April, [facility] [address] [id number] April, Encounter for dental examination Z01.20 [facility] [address] 86114- 2130 April, [facility] [address] 11764- 0121 April, Tremor R25.1 and Episodic tension-type headache, not intractable G44.219 [facility] [id number] [place] [address] 00871- 7101 Mar, [facility] [id number] [place] [address] 18812- 0374 Jan, Mood disorder F39 [facility] [id number] [place] [address] 11028 -7771 Jan, [facility] [id number] [place] [address] 97456- 4313 Jan, [facility] [address] 26308- 3507 Jan, [facility] [id number] [place] [address] 30526- 0434 Jan, [facility] [id number] [place] [address] 02036- 9569 Jan, [facility] [id number] [place] [address] 68118- 2421 Jan, [facility] [id number] [place] [address] 03857 -0938 Dec, Acute diarrhea R19.7 [facility] [id number] [place] [address] 29231- 6486 Dec, [facility] [id number] [place] [address] 08579- 5845 Dec, [facility] [id number] [place] [address] 28352- 9230 Dec, [facility] [id number] [place] [address] 96872 -0644 Dec, N&V (nausea and vomiting) R11.2 [facility] [id number] [place] [address] 77082- 9887 Dec, Generalized anxiety disorder F41.1 [facility] [id number] [place] [address] 92725- 8672 Dec, Generalized anxiety disorder F41.1 [facility] [id number] [place] [address] 71933- 6650 Nov, Post concussion syndrome F07.81 [facility] [id number] [place] [address] 95038- 5816 Nov, Generalized anxiety disorder F41.1 [facility] [id number] [place] [address] 03288- 4736 Nov, [facility] [id number] [place] [address] 27885- 2901 Nov, Generalized anxiety disorder F41.1 [facility] [address] [place] [address] [id number] Oct, Dental caries K02.9 [facility] [id number] [place] [address] 89442- 5428 Oct, [facility] [address] [place] [address] [id number] Oct, Dental examination Z01.20 [facility] [id number] [place] [address] [id number] 10 Oct, 2015 Encounter for dental examination Z01.20 [facility] [address] 68587- 8317 Oct, CAD (coronary artery disease) I25.10 [facility] [id number] [place] [address] 57695- 3932 Sep, Generalized anxiety disorder F41.1 [facility] [place] [id number] [place] [address] 47372- 8561 Sep, [facility] [place] [address] 35590- 6779 Sep, Rash and other nonspecific skin eruption R21 and Yeast vaginitis B37.3 [facility] [place] [id number] [place] [address] 85301- 8963 Sep, Generalized anxiety disorder F41.1 [facility] [id number] [place] [address] 44043- 3195 Aug, Insect bites 919.4 and Hemorrhoids 455.6 [place] [address] 03544- 1366 Aug, Generalized anxiety disorder 300.02 [facility] [id number] [place] [address] 98935- 6260 Aug, [place] [address] 93052- 3734 Aug, [facility] [address] 02300- 0148 Aug, Generalized anxiety disorder 300.02 ; No condition on Butler II V71.09 ; Heart problem 429.9 and Hypertension 401.9 [place] [address] [facility] [id number] [address]- 2655 Aug, [facility] [address] [address]- 3691 Jul, [facility] [address] [facility] [id number] [place] [address]- 5690 Jul, [facility] [address] [address]- 4795 Jul, [facility] [address] [facility] [id number] [place] [address]- 3713 Jul, [facility] [address] [address]- 5978 Jul, Rash 782.1 [facility] [address] [address]- 7583 Jul, UTI (urinary tract infection) 599.0 [facility] [address] [address]- 9498 Jul, [facility] [address] [address]- 3008 Jun, Dysthymia 300.4 and Anxiety 300.00 [facility] [address] [address]- 7872 Jun, 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 [facility] [address] [address]- 3447 May, [facility] [id number] [address]- 1526 May, [facility] [address] [address]- 8933 May, Unspecified breast screening V76.10 [facility] [address] [id number] [place] [id number] May, Dental examination V72.2 [facility] [address] [place] [address]- 8996 April, [facility] [address] [id number] [address]- 9486 April, [facility] [place] [facility] [address] [id number] [place] [address] April, Dental examination V72.2 [facility] [address] [id number] [place] [id number] April, Dental examination V72.2 [facility] [address] [id number] [place] [address]- 3249 Mar, [facility] [place] [facility] [address] [id number] [place] [address]- 4933 Mar, [facility] [place] [facility] [address] [id number] [place] [address]- 8128 Jan, [facility] [place] [facility] [address] [id number] [place] [address]- 2643 25 Jan, 2015 [facility] [place] [facility] [address] [id number] [place] [address]- 1411 18 Jan, 2015 [facility] [place] [facility] [address] [id number] [place] [address]- 6174 18 Jan, 2015 [facility] [place] [facility] [address] [id number] [place] 4100 16 Jan, 2015 [facility] [place] [facility] [address] [id number] [place] [address]- 9935 16 Jan, 2015 [facility] [place] [facility] [address] [id number] [place]- 4979 13 Jan, 2015 [facility] [place] [facility] [address] [id number] [place]- 5194 13 Jan, 2015 [facility] [place] [facility] [address] [id number] [place] [address]- 6400 11 Jan, 2015 [facility] [place] [facility] [address] [id number] [place] [address]- 1047 Jan, [facility] [place] [facility] [address] [id number] [place] [address]- 4587 Jan, [facility] [place] [facility] [address] [id number] [place] [address]- 5583 Jan, [facility] [place] [facility] [address] [facility] [id number] [place] [address]- 5608 Jan, [facility] [place] [facility] [address] [id number] [place] [address]- 7582 Jan, [facility] [place] [facility] [address] [id number] [place] [address]- 1690 Jan, [facility] [place] [facility] [address] [facility] [id number] [place] [address] Jan, [facility] [place] [facility] [address] [facility] [id number] [place] [address] Jan, [facility] [place] [facility] [address] [facility] [id number] [place] [address] Jan, [facility] [place] [facility] [address] [facility] [id number] [place] [address] Jan, [facility] [place] [facility] [address] [facility] [id number] [place] [address] Jan, [facility] [place] [facility] [address] [facility] [id number] [place] [address] Jan, [facility] [place] [facility] [address] [facility] [id number] [address] Jan, [facility] [place] [facility] [address] [id number] [place] [address] Dec, [facility] [place] [facility] [address] [facility] [id number] [place] [address] Dec, [facility] [place] [facility] [address] [facility] [id number] [place] [address] Dec, [facility] [place] [facility] [address] [id number] [place] [address] Dec, [facility] [place] [facility] [address] [id number] [place] [address] Nov, [facility] [place] [facility] [address] [id number] [place] [address] Nov, [facility] [place] [facility] [address] [id number] [place] [address] Nov, [facility] [place] [facility] [address] [id number] [place] [address] Nov, [facility] [place] [facility] [address] [id number] [place] [address] Nov, [facility] [place] [facility] [address] [id number] [place] [address] Nov, [facility] [place] [facility] [address] [id number] [place] [address] Nov, [facility] [place] [facility] [address] [id number] [place] [address] Oct, [facility] [place] [facility] [address] [id number] [place] [address] Oct, [facility] [place] [facility] [address] [id number] [place] [address] Oct, [facility] [place] [facility] [address] [id number] [place] [address] Oct, [facility] [place] [facility] [address] [id number] [place] [address] Oct, [facility] [facility] [address] [id number] [place] [address] Oct, [facility] [place] [facility] [address] [id number] [place] [address] Oct, [facility] [place] [facility] [address] [id number] [place] [address] Oct, [facility] [place] [facility] [address] [id number] [place] [address] 4265 Oct, [facility] [place] [facility] [address] [id number] [place] [address] 7735 Oct, [facility] [place] [facility] [address] [id number] [place] [address] 7816 Oct, [facility] [place] [facility] [address] [id number] [place] [address] 7812 Oct, [facility] [place] [facility] [address] [id number] [place] [address] Sep, [facility] [place] [facility] [address] [id number] [place] [address]641 Sep, [facility] [place] [facility] [address] [id number] [place] [address] 3867 Sep, [facility] [place] [facility] [address] [id number] [place] [address] 9366 Sep, [facility] [place] [facility] [address] [id number] [place] [address]- 2572 Jul, [facility] [place] [facility] [address] [id number] [place] [address]- 3294 Jul, [facility] [place] [facility] [address] [id number] [place] [address]- 0453 Jul, [facility] [place] [facility] [address] [id number] [place] [address]- 9287 Jul, [facility] [place] [facility] [address] [id number] [place] [address]- 1314 Jun, [facility] [place] [facility] [address] [id number] [place] [address]- 9206 Jun, [facility] [place] [facility] [address] [id number] [place] [address]- 9763 Jun, [facility] [place] [facility] [address] [id number] [place] [address]- 1418 Jun, [facility] [address] [id number] [place] [address] 8102 May, [facility] [address] [id number] [place] [address] May, [facility] [address] [id number] [place] [address]- 9034 April, [facility] [address] [id number] [place] [address]- 1018 April, [facility] [address] [id number] [place] [address]- 3786 April, [facility] [address] [id number] [place] [address]- 0686 April, [facility] [address] [id number] [place] [address]- 1017 April, [facility] [address] [id number] [place] [address]- 9160 April, [facility] [address] [id number] [place] [address] April, [facility] [address] [id number] [place] [address]- 5003 April, [facility] [address] [id number] [place] [address]- 8250 April, [facility] [address] [id number] [place] [address]- 3623 Mar, [facility] [address] [id number] [place] [address]- 3616 Mar, [facility] [address] [id number] [place] [address]- 3852 Mar, [facility] [address] [id number] [place] [address]- 1133 Mar, [facility] [address] [id number] [place] [address]- 5797 Jan, [facility] [place] [facility] [address] [id number] [place] [address]- 2213 Jan, [facility] [place] [facility] [address] [id number] [place] [address]- 8993 Jan, [facility] [facility] [address] [id number] [place] [address]- 0932 Jan, [facility] [place] [facility] [address] [id number] [place] [address]- 6311 Jan, [facility] [place] [facility] [address] [id number] [place] [address] Jan, [facility] [facility] [address] [id number] [place] [address]- 4011 Jan, [facility] [place] [facility] [address] [id number] [place] [address]- 5897 Jan, [facility] [place] [address] [id number] [place] [address]- 0987 Jan, [facility] [address] [id number] [place] [address]- 6234 Jan, [facility] [address] [id number] [place] [address]- 0233 Jan, [facility] [address] [id number] [place] [address]- 6993 Jan, [facility] [address] [id number] [place] [address]- 7941 Dec, [facility] [address] [id number] [place] [address]- 7236 Dec, [facility] [address] [id number] [place] [address]- 4153 Dec, [facility] [address] [id number] [place] [address]- 7329 Dec, [facility] [address] [id number] [place] [address]- 8786 Nov, [facility] [address] [id number] [place] [address] Nov, [facility] [address] [id number] [place] [address]- 6138 Nov, [facility] [address] [id number] [place] [address]- 6371 Nov, [facility] [address] [id number] [place] [address]- 6222 Oct, [facility] [address] [id number] [place] [address]- 5419 Oct, [facility] [address] [id number] [place] [address]- 3540 Sep, [facility] [address] [id number] [place] [address]- 9220 Sep, [facility] [address] [id number] [place] [address]- 9041 Jul, [facility] [address] [id number] [place] [address]- 5222 Jul, [facility] [address] [id number] [place] [address]- 8319 Jun, [facility] [address] [id number] [place] [address]- 2495 Jun, [facility] [address] [id number] [place] [address]- 3391 Jun, [facility] [address] [id number] [place] [address]- 5148 May, [facility] [address] [id number] [place] [address]- 9425 May, [facility] [address] [id number] [place] [address]- 0271 May, [facility] [address] [id number] [place] [address]- 5677 May, [facility] [address] [id number] [place] [address]- 6065 May, [facility] [address] [id number] [place] [address]- 4953 April, [facility] [address] [id number] [place] [address]- [address]113 April, [facility] [address] [id number] [place] [address]- 6205 April, [facility] [address] [id number] [place] [address]- 2746 April, [facility] [address] [id number] [place] [address]- 4872 April, [facility] [address] [id number] [place] [address]- 1231 April, [facility] [address] [id number] [place] [address]- 7335 Mar, [facility] [address] [id number] [place] [address]- 4690 Mar, [facility] [address] [id number] [place] [address]- 0517 Jan, [facility] [address] [id number] [place] [address]- 7623 Jan, [facility] [address] [id number] [place] [address]- 4143 Jan, [facility] [address] [id number] [place] [address]- 3285 05 Jan, 2013 [facility] [address] [id number] [place] [address]- 7361 13 Jan, 2012 [facility] [address] [id number] [place] [address]- 5726 12 Jan, 2012 [facility] [address] [id number] [place] [address] 2546 05 Jan, 2012 [facility] [address] [id number] [place] [address] 2546 04 Jan, 2012 [facility] [address] [id number] [place] [address] 2546 03 Jan, 2012 [facility] [address] [id number] [place] [address]- 5596 Jan, 2012 [facility] [address] [id number] [place] [address]- 1366 Jan, [facility] [address] [facility] [id number] [place] [address]- 0980 Dec, [facility] [address] [id number] [place] [address]- 5476 Nov, [facility] [address] [facility] [id number] [place] [address]- 7652 Nov, [facility] [address] [facility] [id number] [place] [address]- 2671 Nov, [facility] [address] [facility] [id number] [place] [address] 2546 Nov, [facility] [address] [id number] [place] [address] 2546 Nov, [facility] [address] [facility] [id number] [place] [address] 2549 Nov, [facility] [address] [facility] [id number] [place] [address]- 2547 Nov, [facility] [address] [facility] [id number] [place] [address]- 254 Nov, [facility] [address] [id number] [place] [address]- 7473 Nov, [facility] [address] [id number] [place] [address]- 3931 Nov, [facility] [address] [id number] [place] Nov, [facility] [address] [id number] [place] [address]- 4203 Nov, [facility] [address] [id number] [place] [address]- 7423 Nov, [facility] [address] [id number] [place] [address]- 3464 Oct, [facility] [address] [id number] [place] [address]- 5307 Oct, [facility] [address] [id number] [place] [address]- 1719 Oct, [facility] [address] [id number] [place] [address]- 8358 Sep, [facility] [address] [id number] [place] [address]- 3404 Sep, [facility] [facility] [address] [facility] [id number] [place] [address]- 7323 Sep, [facility] [address] [id number] [place] [address]- 6165 Sep, [facility] [address] [id number] [place] [address]- 3437 27 Aug, 2012 [facility] [facility] [address] [id number] [place] [address] 20 Aug, 2012 [facility] [address] [id number] [place] [address]- 7348 Jul, [facility] [place] [facility] [address] [id number] [place] [address]- 2677 May, [facility] [address] [id number] [place] [address]- 3075 May, [facility] [address] [id number] [place] [address]- 6585 May, [facility] [place] [facility] [address] [id number] [place] [address]- 6699 April, [facility] [place] [facility] [address] [id number] [place] [address]- 6629 Mar, [facility] [place] [facility] [address] [id number] [place] [address]- 3467 Mar, [facility] [place] [facility] [address] [id number] [place] [address]- 9792 Mar, [facility] [place] [facility] [address] [id number] [place] [address]- 0829 Jan, [facility] [place] [address] [id number] [place] [address]- 8636 Jan, [facility] [place] [facility] [address] [id number] [place] [address]- 5001 Jan, [facility] [place] [facility] [address] [id number] [place] [address]- 2327 Dec, [facility] [address] [id number] [address]- 7724 Dec, [facility] [address] [id number] [place] [address]- 0799 Dec, [facility] [place] [facility] [address] [id number] [place] [address]- 9041 Dec, [facility] [address] [id number] [place] [address]- 2630 Nov, [facility] [address] [id number] [place] [address]- 9059 Nov, [facility] [place] [facility] [address] [id number] [place] 03 Nov, 2011 [facility] [address] [id number] [place] [address]- 9445 03 Oct, 2011 [facility] [place] [facility] [address] [id number] [place] [address]- 8746 31 Sep, 2011 [facility] [place] [facility] [address] [id number] [place] [address]- 3842 26 Sep, 2011 [facility] [place] [facility] [address] [id number] [place] [address] 2541 13 Sep, 2011 [facility] [address] [id number] [place] [address]- 7044 15 Nov, 2010 [facility] [facility] [address] [id number] [place] [address]- 1314 23 Oct, 2010 [facility] [place] [facility] [address] [id number] [place] [address]- 7398 Oct, [facility] [place] [facility] [address] [id number] [place] [address]- 3247 18 Oct, 2010 [facility] [place] [facility] [address] [id number] [place] [address]- 0719 16 Oct, 2010 [facility] [place] [facility] [address] [facility] [id number] [place] [address]- 9381 11 Sep, 2010 [facility] [place] [facility] [address] [id number] [place] [address]- 4923 April, [facility] [place] [facility] [address] [id number] [place] [address]- 2547 29 Nov, 2009 [facility] [place] [facility] [address] [id number] [place] [address] 2549 24 Nov, 2009 [facility] [place] [facility] [address] [id number] [place] [address]- 2542 22 Nov, 2009 [facility] [place] [facility] [address] [id number] [place] [address]- 1710 Nov, [facility] [address] [facility] [id number] [place] [address]- 3432 Nov, [facility] [address] [id number] [address]- 2586 Oct, [facility] [address] [facility] [id number] [place] [address]- 9526 Oct, [facility] [address] [id number] [address]- 4995 Sep, [facility] [address] [facility] [id number] [place] [address]- 8691 Jan, IMMUNIZATIONS No Known Immunizations SOCIAL HISTORY [...] thoughts Medical History Depression Medical History At [facility] 04/2016 Started on Eliquis Medical History Anemia 04/2016 postsurgical hip fx Surgical History right hip replacement w/ Dr. Bruce 2011 Surgical History triple bypass surgery 2003 Surgical History S/P left hip IM Nail (Intertrechanteric hip fx) 04/28/16 Hospitalization History surgeries Hospitalization History Hypertension Hospitalization History ER for a concussion 11/24/15 Hospitalization History Intertrechanteric hip fx 04/27/16 Hospitalization History [facility] (inpatient [facility] 2 times) Hx of 3 inpatient psych treatments in past in [place] oct 2016 [facility] History [facility] 2016
--- OUTSIDE RECORDS SUMMARY | 2018-08-20 12:56 | XMS REPORT ---
Author Author WOLF AGUIRRE [facility] Address [address] [place] [address] Care Team Providers Care Shift Superintendent Caustic Cresylate Name Role Phone WOLF AGUIRRE Unavailable PROBLEMS Type Condition ICD9-CM Code QMS96-MW Code Onset Dates Condition Status SNOMED Code Problem Sundowning F05 Active 676389283 Problem Constipation, unspecified constipation type K59.00 Active 76523883 Problem Reactive depression F32.9 Active 05806840 Problem Vascular dementia with behavior disturbance F01.51 Active 137659314851555 Problem Insomnia, unspecified type G47.00 Active 628858269 Problem Generalized anxiety disorder F41.1 Active 30167186 Problem Other chronic pain G89.29 Active 90062770 Problem Severe episode of recurrent major depressive disorder, without psychotic features F33.2 Active 78084023 Problem Slow transit constipation K59.01 Active 03788966 Problem 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 Active 134643292 Problem Obsessive thinking F42.8 Active 96309561 Problem Failure to thrive in adult R62.7 Active 728419464 Problem Dysthymic disorder F34.1 Active 74852864 Problem Hypertension I10 Active 04226038 Problem Mood disorder F39 Active 88614366 Problem Irritable bowel syndrome with diarrhea K58.0 Active 669917765 Problem Oropharyngeal dysphagia R13.12 Active 70768005 Problem 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 Active 90351786 Problem Other chronic pain G89.29 Active 91493996 Problem Primary insomnia F51.01 Active 4349084 Problem Poor appetite R63.0 Active 84092689 Problem Atherosclerotic heart disease of [place] 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 Active 899587823493774 Problem Iron deficiency anemia secondary to inadequate dietary iron intake D50.8 Active 002444465 Problem Coarse tremors G25.2 Active 85301328 Problem Gastroesophageal reflux disease without esophagitis K21.9 Active 022688754 Problem Essential hypertension I10 Active 20357706 ALLERGIES No Information ENCOUNTERS Encounter Location Date Diagnosis [facility] [address] [address] Jul, [facility] [place] [id number] [place] [address] 93514- 9258 Jun, [facility] [place] [id number] [place] [address] 52875- 2896 Jun, [facility] [address] [place] [id number] Jun, Left lower quadrant pain R10.32 and Left leg pain M79.605 [facility] [id number] [place] [address] 01628- 3795 Jun, [facility] [address] [place] [id number] Jun, Pain in left hip M25.552 ; Pain in right hip M25.551 and Primary insomnia F51.01 [facility] [place] [id number] [place] [address] 48652- 0559 Jun, [facility] [address] [place] [id number] May, [facility] [place] [id number] [place] [address] 82926- 4765 May, [facility] [place] [id number] [place] [address] 96885- 3536 May, [facility] [address] [place] [id number] May, Mood disorder F39 [facility] [place] [address] [address] 9119 May, [facility] [place] [id number] [place] [address] 44335- 1711 April, [facility] [address] [place] [id number] April, Generalized anxiety disorder F41.1 ; Obsessive thinking F42.8 and Insomnia , unspecified type G47.00 [facility] [place] [address], [place] [address] April, [facility] [place] [id number] [place] [address] 54907- 1369 April, Rash of face R21 [facility] [place] [address], [place] [address] 4754 Mar, [facility] [place] [id number] [place] [address] 16830- 2639 Mar, [facility] [place] [id number] [place] [address] 58720- 2517 Mar, [facility] [place] [id number] [place] [address] 98278- 9917 Jan, [facility] [place] [id number] [place] [address] 82702- 4837 Jan, [facility] [id number] Jan, Constipation, unspecified constipation type K59.00 and Other chronic pain G89.29 [facility] [id number] [place] [address] 76431- 9477 Jan, [facility] [address] [id number] Jan, Obsessive thinking F42.8 and Coarse tremors G25.2 [facility] [id number] [place] [address] [id number] Jan, [facility] [id number] [id number] Jan, [facility] [address] [id number] Jan, Generalized anxiety disorder F41.1 ; Obsessive thinking F42.8 ; Callus of foot L84 and 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 [facility] [place] [address], [place] [address] 0368 Dec, Generalized anxiety disorder F41.1 and Severe episode of recurrent major depressive disorder, without psychotic features F33.2 [facility] [place] [address], [place] [address] 1302 Nov, [facility] [place] [address], [place] [address] 5713 Nov, [facility] [address] [place] [id number] Nov, Oropharyngeal dysphagia R13.12 ; Generalized anxiety disorder F41.1 and 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 [facility] [place] [address], [place] [address] 8055 Nov, [facility] [id number] [place] [id number] Nov, [facility] [id number] [place] [address] 61388- 9255 Nov, [facility] [place] [id number] [place] [address] 71419- 5834 Nov, [facility] [place] [id number] [place] [address] 88883- 5250 Oct, Constipation, unspecified constipation type K59.00 and Mood disorder F39 [facility] [place] [address], [place] [address] 0973 Oct, [facility] [id number] [place] [address] [id number] Sep, [facility] [id number] [id number] Sep, [facility] [id number] [place] [address] [id number] Sep, [facility] [id number] [place] [address] [id number] Sep, [facility] [address] [place] [id number] Sep, Generalized abdominal pain R10.84 [facility] [place] [address], [place] [address] Sep, [facility] [id number] [id number] Sep, Generalized anxiety disorder F41.1 and Primary insomnia F51.01 [facility] [id number] [id number] Aug, [facility] [id number] [place] [address] [id number] Aug, Generalized anxiety disorder F41.1 [facility] [place] [id number] [address] 5431 Jul, [facility] [address] [place] [id number] Jul, Obsessive thinking F42.8 [facility] [place] [address], [place] [address]- 9958 Jul, Generalized anxiety disorder F41.1 and Irritable bowel syndrome with diarrhea K58.0 [facility] [id number] [id number] Jul, Generalized anxiety disorder F41.1 [facility] [id number] [place] [id number] Jun, Generalized anxiety disorder F41.1 [facility] [place] [id number], [place] [address] 7275 May, [facility] [address] [place] [id number] May, Generalized anxiety disorder F41.1 ; Irritable bowel syndrome with diarrhea K58.0 and Coarse tremors G25.2 [facility] [place] [address] [address] 3973 April, [facility] [place] [address], [place] [address]- 0077 April, [facility] [place] [address], [place] [address]- 0699 April, [facility] [address], [place] [address]- 5897 Mar, [facility] [address] [place] [id number] Mar, Severe episode of recurrent major depressive disorder, without psychotic features F33.2 and Pain in left hip M25.552 [facility] [id number] [place] [address] 58485- 1448 Mar, [facility] [id number] [place] [address] 64874- 6291 Mar, [facility] [id number] [place] [address] 93920- 8243 Mar, [facility] [id number] [place] [address] 29159- 8201 Mar, Pain in right hip M25.551 and Self-care deficit in patient living alone R46.89 [facility] [id number] [place] [address] 80823 -2097 Jan, Other chronic pain G89.29 ; Pain in left hip M25.552 and Slow transit constipation K59.01 [facility] [address] [place] [address] 09370- 3291 Jan, [facility] [id number] [place] [address] 95203- 9428 Dec, Other depression F32.89 ; Constipation, unspecified constipation type K59.00 and Insomnia, unspecified type G47.00 [facility] [address] [place] [address] 34688- 5814 Nov, Reactive depression F32.9 ; Chronic idiopathic constipation K59.04 ; Generalized anxiety disorder F41.1 ; Coarse tremors G25.2 ; Gastroesophageal reflux disease without esophagitis K21.9 ; Dysthymic disorder F34.1 ; Vitamin deficiency, unspecified E56.9 and Primary insomnia F51.01 [facility] [id number] [place] [address] 45936- 8410 Nov, [facility] [id number] [place] [address] 48646- 7741 Nov, [facility] [id number] [place] [address] 88073- 9252 Nov, [facility] [place] [id number] [place] [address] 92411- 4341 Nov, Reactive depression F32.9 ; Essential hypertension I10 ; Generalized anxiety disorder F41.1 ; Atherosclerotic heart disease of [place] 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 ; Pain in right hip M25.551 ; Other chronic pain G89.29 ; Chronic idiopathic constipation K59.04 ; Primary insomnia F51.01 ; Coarse tremors G25.2 ; Gastroesophageal reflux disease without esophagitis K21.9 ; Iron deficiency anemia secondary to inadequate dietary iron intake D50.8 and Vitamin deficiency, unspecified E56.9 [facility] [place] [id number] [place] [address] 83605- 8778 Oct, [facility] [place] [id number] [place] [address] 56162- 1050 Oct, [facility] [id number] [place] [address] 58512- 5157 Oct, [facility] [id number] [place] [address] 78244- 7959 Oct, Generalized anxiety disorder F41.1 ; Poor appetite R63.0 ; Dehydration E86.0 and Failure to thrive in adult R62.7 [facility] [place] [id number] [place] [address] 01924- 0828 07 Oct, 2016 Generalized anxiety disorder F41.1 and Failure to thrive in adult R62.7 [facility] [id number] [place] [address] 83125- 2970 Oct, [facility] [id number] [place] [address] 80175- 7692 Oct, [facility] [id number] [place] [address] 65207 -7348 Sep, Vaginal discharge N89.8 and Acute cystitis with hematuria N30.01 [facility] [id number] [place] [address] 48117- 3621 Sep, [facility] [id number] [place] [address] 13804- 4729 Sep, [facility] [address] 07466- 7433 Sep, Dysthymic disorder F34.1 ; Acute vaginitis N76.0 ; Dysuria R30.0 and Vaginal yeast infection B37.3 [facility] [id number] [place] [address] 18662- 7570 Aug, [facility] [address] 59898- 0878 Aug, [facility] [id number] [place] [address] 52961 -2026 Aug, Foul smelling urine R82.90 ; Rapid heart rate R00.0 and Flatulence R14.3 [facility] [id number] [place] [address] 16082- 8391 Aug, [facility] [id number] [place] [address] 23698- 8876 Jul, Constipation, unspecified constipation type K59.00 ; Weak R53.1 ; Poor appetite R63.0 ; Coronary artery disease involving [place] heart without angina pectoris, unspecified vessel or lesion type I25.10 ; Fatigue, unspecified type R53.83 ; Urinary incontinence, unspecified type R32 and Insomnia, unspecified type G47.00 [facility] [place] [id number] [place] [address] 55899- 2778 Jul, [facility] [id number] [place] [address] 56176- 7484 Jun, Dysuria R30.0 [facility] [place] [id number] [place] [address] 99511- 4293 Jun, [facility] [place] [address] 38837- 7002 Jun, Urinary tract infection, site not specified N39.0 ; Acute vaginitis N76.0 and Diarrhea, unspecified type R19.7 [facility] [place] [address] 80949- 0244 May, [facility] [id number] [place] [address] 20978- 0503 April, [facility] [address] [id number] April, Encounter for dental examination Z01.20 [facility] [address] 82658- 2310 April, [facility] [place] [address] 35243- 4517 April, Tremor R25.1 and Episodic tension-type headache, not intractable G44.219 [facility] [place] [id number] [place] [address] 59987- 6611 Mar, [facility] [place] [id number] [place] [address] 64137- 3915 Jan, Mood disorder F39 [facility] [id number] [place] [address] 67671 -1086 Jan, [facility] [place] [id number] [place] [address] 35854- 7603 Jan, [facility] [place] [address] 31117- 3045 Jan, [facility] [place] [id number] [place] [address] 88614- 9673 Jan, [facility] [place] [id number] [place] [address] 01609- 6102 Jan, [facility] [id number] [place] [address] 14050- 1550 Jan, [facility] [id number] [place] [address] 03659 -7979 Dec, Acute diarrhea R19.7 [facility] [id number] [place] [address] 19147- 7731 Dec, [facility] [id number] [place] [address] 37002- 3403 Dec, [facility] [id number] [place] [address] 79734- 0478 Dec, [facility] [id number] [place] [address] 06659 -9036 Dec, N&V (nausea and vomiting) R11.2 [facility] [id number] [place] [address] 35206- 0289 Dec, Generalized anxiety disorder F41.1 [facility] [place] [id number] [place] [address] 81498- 0197 Dec, Generalized anxiety disorder F41.1 [facility] [id number] [place] [address] 11605- 1914 Nov, Post concussion syndrome F07.81 [facility] [id number] [place] [address] 55066- 8680 Nov, Generalized anxiety disorder F41.1 [facility] [place] [id number] [place] [address] 41386- 6407 Nov, [facility] [id number] [place] [address] 21320- 8637 Nov, Generalized anxiety disorder F41.1 [facility] [address] [place] [address] [id number] Oct, Dental caries K02.9 [facility] [id number] [place] [address] 00779- 6790 Oct, [facility] [id number] [place] [address] [id number] Oct, Dental examination Z01.20 [facility] [id number] [place] [address] [id number] 10 Oct, 2015 Encounter for dental examination Z01.20 [facility] [address] 16962- 1667 Oct, CAD (coronary artery disease) I25.10 [facility] [id number] [place] [address] 08138- 5987 Sep, Generalized anxiety disorder F41.1 [facility] [id number] [place] [address] 02170- 4448 Sep, [facility] [address] 26783- 9185 Sep, Rash and other nonspecific skin eruption R21 and Yeast vaginitis B37.3 [facility] [id number] [place] [address] 99896- 8849 Sep, Generalized anxiety disorder F41.1 [facility] [id number] [place] [address] 52690- 1490 Aug, Insect bites 919.4 and Hemorrhoids 455.6 [place] [address] 40650- 2351 Aug, Generalized anxiety disorder 300.02 [facility] [id number] [place] [address] 79634- 1947 Aug, [place] [facility] [address] 40045- 3400 Aug, [facility] [address] 46086- 0846 Aug, Generalized anxiety disorder 300.02 ; No condition on [place] V71.09 ; Heart problem 429.9 and Hypertension 401.9 [place] [address] [facility] [id number] [address]- 8249 Aug, [facility] [address] [address]- 1665 Jul, [facility] [address] [facility] [id number] [address]- 1518 Jul, [facility] [address], [place] [address]- 0791 Jul, [facility] [address] [facility] [id number], [place] [address]- 2877 Jul, [facility] [address], [place] [address]- 4041 Jul, Rash 782.1 [facility] [address], [place] [address]- 0299 Jul, UTI (urinary tract infection) 599.0 [facility] [address] [address]- 0066 Jul, [facility] [address], [place] [address]- 4342 Jun, Dysthymia 300.4 and Anxiety 300.00 [facility] [address], [place] [address]- 4330 Jun, 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 [facility] [address], [place] [address] May, [facility] [place] [address] [id number], [place] [address] May, [facility] [place] [id number], [place] [address] May, Unspecified breast screening V76.10 [facility] [address] [id number] [id number] May, Dental examination V72.2 [facility] [place] [id number] [place] [address] April, [facility] [address] [id number], [place] [address] April, [facility] [place] [facility] [address] [id number] [id number] April, Dental examination V72.2 [facility] [address] [id number] [id number] April, Dental examination V72.2 [facility] [address] [id number] [place] [address] Mar, [facility] [place] [facility] [address] [id number] [place] [address] Mar, [facility] [place] [facility] [address] [id number] [place] [address] Jan, [facility] [place] [facility] [address] [id number] [place] [address] 25 Jan, 2015 [facility] [place] [facility] [address] [id number] [place] [address] 18 Jan, 2015 [facility] [place] [facility] [address] [id number] [place] [address] 18 Jan, 2015 [facility] [place] [facility] [address] [id number] [place] [address] 16 Jan, 2015 [facility] [place] [facility] [address] [id number], [place] [address] 16 Jan, 2015 [facility] [place] [facility] [address] [id number] [place] [address] 13 Jan, 2015 [facility] [place] [facility] [address] [id number] [place] [address] 13 Jan, 2015 [facility] [place] [facility] [address] [id number], [place] [address] 11 Jan, 2015 [facility] [place] [facility] [address] [id number] [id number] [address] Jan, [facility] [place] [facility] [address] [id number] [place] [address] Jan, [facility] [place] [facility] [address] [id number] [place] [address] Jan, [facility] [place] [facility] [address] [facility] [id number] [place] [address] Jan, [facility] [place] [facility] [address] [id number] [place] [address] Jan, [facility] [place] [facility] [address] [id number] [place] [address] Jan, [facility] [place] [facility] [address] [facility] [id number] [place] [address] Jan, [facility] [place] [facility] [address] [facility] [id number] [place] [address] 5478 Jan, [facility] [place] [facility] [address] [facility] [id number] [place] [address] 4[address] Jan, [facility] [place] [facility] [address] [facility] [id number] [place] [address] 9086 Jan, [facility] [place] [facility] [address] [facility] [id number] [place] [address]- 5338 Jan, [facility] [place] [facility] [address] [facility] [id number] [place] [address] 5510 Jan, [facility] [place] [facility] [address] [facility] [id number], [place] [address] Jan, [facility] [place] [facility] [address] [id number] [place] [address] 9524 Dec, [facility] [place] [facility] [address] [facility] [id number] [place] [address]- 4285 Dec, [facility] [place] [facility] [address] [facility] [id number], [place] [address]237 Dec, [facility] [place] [facility] [address] [id number] [place] [address]- 2539 Dec, [facility] [place] [facility] [address] [id number] [place] [address] 1384 Nov, [facility] [place] [facility] [address] [id number] [place] [address]- 0937 Nov, [facility] [place] [facility] [address] [id number] [place] [address]- 4596 Nov, [facility] [place] [facility] [address] [id number] [place] [address]- 0323 Nov, [facility] [place] [facility] [address] [id number] [place] [address]- 3605 Nov, [facility] [place] [facility] [address] [id number] [place] [address]- 7086 Nov, [facility] [place] [facility] [address] [id number] [place] [address]- 7242 Nov, [facility] [place] [facility] [address] [id number] [place] [address]- 1141 Oct, [facility] [place] [facility] [address] [id number] [place] [address]- 4698 Oct, [facility] [place] [facility] [address] [id number] [place] [address] 3621 Oct, [facility] [place] [facility] [address] [id number] [place] [address]- 7139 Oct, [facility] [place] [facility] [address] [id number] [place] [address]- 4642 Oct, [facility] [place] [facility] [address] [id number] [place] [address]- 8546 Oct, [facility] [place] [facility] [address] [id number] [place] [address]- 5989 Oct, [facility] [place] [facility] [address] [id number] [place] [address]- 0207 Oct, [facility] [place] [facility] [address] [id number] [place] [address]- 4643 Oct, [facility] [place] [facility] [address] [id number] [place] [address]- 6800 Oct, [facility] [place] [facility] [address] [id number] [place] [address]- 8342 Oct, [facility] [place] [facility] [address] [id number] [place] [address]- 7208 Oct, [facility] [place] [facility] [address] [id number] [place] [address]- 1529 Sep, [facility] [place] [facility] [address] [id number] [place] [address]- 1102 Sep, [facility] [place] [facility] [address] [id number] [place] [address]- 0609 Sep, [facility] [place] [facility] [address] [id number] [place] [address]- 2887 Sep, [facility] [place] [facility] [address] [id number] [place] [address] 4912 Jul, [facility] [place] [facility] [address] [id number] [place] [address]- 5080 Jul, [facility] [place] [facility] [address] [id number] [place] [address]- 4858 Jul, [facility] [place] [facility] [address] [id number] [place] [address]- 9212 Jul, [facility] [place] [facility] [address] [id number] [place] [address]- 0343 Jun, [facility] [place] [facility] [address] [id number] [place] [address]- 3007 Jun, [facility] [place] [facility] [address] [id number] [place] [address]- 4424 Jun, [facility] [place] [facility] [address] [id number] [place] [address]- 0186 Jun, [facility] [address] [id number] [place] [address]- 1665 May, [facility] [address] [id number] [place] [address] May, [facility] [address] [id number] [place] [address]- 8622 April, [facility] [address] [id number] [place] [address]- 7977 April, [facility] [address] [id number] [place] [address]- 2136 April, [facility] [address] [id number] [place] [address]- 1122 April, [facility] [address] [id number] [place] [address]- 8249 April, [facility] [address] [id number] [place] [address]- 8325 April, [facility] [address] [id number] [place] [address]- 8689 April, [facility] [address] [id number] [place] [address]- 3782 April, [facility] [address] [id number] [place] [address]- 1269 April, [facility] [address] [id number] [place] [address]- 2518 Mar, [facility] [place] [facility] [address] [id number] [place] [address]- 0206 Mar, [facility] [address] [id number] [place] [address]- 8582 Mar, [facility] [address] [id number] [place] [address]- 7672 Mar, [facility] [place] [facility] [address] [id number] [place] [address]- 7819 Jan, [facility] [place] [facility] [address] [id number] [place] [address]- 8731 Jan, [facility] [place] [facility] [address] [id number] [place] [address]- 0388 Jan, [facility] [place] [facility] [address] [id number] [place] [address]- 9195 Jan, [facility] [place] [facility] [address] [id number] [place] [address]- 9647 Jan, [facility] [place] [facility] [address] [id number] [place] [address]- 0370 Jan, [facility] [place] [facility] [address] [id number] [place] [address]- 4832 Jan, [facility] [place] [facility] [address] [id number] [place] [address]- 4583 Jan, [facility] [place] [facility] [address] [id number] [place] [address]- 9944 Jan, [facility] [place] [facility] [address] [id number] [place] [address]- 9185 Jan, [facility] [place] [facility] [address] [id number] [place] [address]- 1782 Jan, [facility] [place] [facility] [address] [id number] [place] [address]- 0362 Jan, [facility] [place] [facility] [address] [id number] [place] [address]- 9523 Dec, [facility] [place] [facility] [address] [id number] [place] [address]- 2158 Dec, [facility] [place] [facility] [address] [id number] [place] [address]- 7387 Dec, [facility] [place] [facility] [address] [id number] [place] [address]- 3829 Dec, [facility] [address] [id number] [place] [address]- 4447 Nov, [facility] [place] [facility] [address] [id number] [place] Nov, [facility] [place] [facility] [address] [id number] [place] [address]- 6863 Nov, [facility] [place] [facility] [address] [id number] [place] [address]- 6274 Nov, [facility] [place] [facility] [address] [id number] [place] [address]- 8906 Oct, [facility] [place] [facility] [address] [id number] [place] [address]- 1061 Oct, [facility] [place] [facility] [address] [id number] [place] [address]- 5817 Sep, [facility] [place] [facility] [address] [id number] [place] [address]- 8527 Sep, [facility] [place] [facility] [address] [id number] [place] [address]- 1816 Jul, [facility] [place] [facility] [address] [id number] [place] [address]- 1923 Jul, [facility] [place] [facility] [address] [id number] [place] [address]- 7330 Jun, [facility] [place] [facility] [address] [id number] [place] [address]- 8302 Jun, [facility] [place] [facility] [address] [id number] [place] [address]- 1581 Jun, [facility] [place] [facility] [address] [id number] [place] [address]- 9463 May, [facility] [place] [facility] [address] [id number] [place] [address]- 5507 May, [facility] [place] [facility] [address] [id number] [place] [address]- 6968 May, [facility] [address] [id number] [place] [address]- 0819 May, [facility] [address] [id number] [place] [address]- 3918 May, [facility] [address] [id number] [place] [address]- 0730 April, [facility] [address] [id number] [place] [address]- 2450 April, [facility] [address] [id number] [place] [address]- 1170 April, [facility] [address] [id number] [place] [address]- 6577 April, [facility] [address] [id number] [place] [address]- 0212 April, [facility] [address] [id number] [place] [address]- 9775 April, [facility] [address] [id number] [place] [address]- 6875 Mar, [facility] [address] [id number] [place] [address]- 2138 Mar, [facility] [address] [id number] [place] [address]- 7590 Jan, [facility] [place] [facility] [address] [id number] [place] [address]- 8006 Jan, [facility] [place] [facility] [address] [id number] [place] [address]- 8092 Jan, [facility] [place] [facility] [address] [id number] [place] [address]- 5182 05 Jan, 2013 [facility] [place] [facility] [address] [id number] [place] [address]- 6591 13 Jan, 2012 [facility] [address] [id number] [place] [address]- 9956 12 Jan, 2012 [facility] [address] [id number] [place] [address] 2546 05 Jan, 2012 [facility] [address] [id number] [place] [address] 2546 04 Jan, 2012 [facility] [address] [id number] [place] [address] 2546 03 Jan, 2012 [facility] [address] [id number] [place] [address]- 2576 Jan, 2012 [facility] [address] [id number] [place] [address]- 7456 Jan, [facility] [address] [facility] [id number] [place] [address]- 5684 Dec, [facility] [address] [id number] [place] [address]- 6069 Nov, [facility] [address] [facility] [id number] [place] [address]- 1920 Nov, [facility] [address] [facility] [id number] [place] [address]- 4594 Nov, [facility] [address] [facility] [id number] [place] [address] 2546 Nov, [facility] [address] [id number] [place] [address] 2546 Nov, [facility] [address] [facility] [id number] [place] [address] 254 Nov, [facility] [address] [facility] [id number] [place] [address]- 2548 Nov, [facility] [address] [facility] [id number] [place] [address]- 2547 Nov, [facility] [place] [facility] [address] [id number] [place] [address]- 7458 Nov, [facility] [place] [facility] [address] [id number] [place] [address]- 5461 Nov, [facility] [place] [facility] [address] [id number] [place]32 Nov, [facility] [place] [facility] [address] [id number] [place] [address]- 4326 Nov, [facility] [place] [facility] [address] [id number] [place] [address]- 7959 Nov, [facility] [place] [facility] [address] [id number] [place] [address]- 7465 Oct, [facility] [place] [facility] [address] [id number] [place] [address]- 0780 Oct, [facility] [place] [facility] [address] [id number] [place] [address]- 9781 Oct, [facility] [place] [facility] [address] [id number] [place] [address]- 3671 Sep, [facility] [place] [facility] [address] [id number] [place] [address]- 3318 Sep, [facility] [place] [facility] [address] [facility] [id number] [place] [address]- 5714 Sep, [facility] [place] [facility] [address] [id number] [place] [address]- 4245 Sep, [facility] [place] [facility] [address] [id number] [place] [address]- 3081 27 Aug, 2012 [facility] [place] [facility] [address] [id number] [place] [address] 20 Aug, 2012 [facility] [place] [facility] [address] [id number] [place] [address]- 7274 Jul, [facility] [place] [facility] [address] [id number] [place] [address]- 7725 May, [facility] [address] [id number] [place] [address]- 6250 May, [facility] [place] [facility] [address] [id number] [place] [address]- 2050 May, [facility] [place] [facility] [address] [id number] [place] [address]- 5788 April, [facility] [place] [facility] [address] [id number] [place] [address]- 5914 Mar, [facility] [place] [facility] [address] [id number] [place] [address]- 9984 Mar, [facility] [place] [facility] [address] [id number] [place] [address]- 5988 Mar, [facility] [place] [facility] [address] [id number] [place] [address]- 8840 Jan, [facility] [place] [facility] [address] [id number] [place] [address]- 4304 Jan, [facility] [place] [facility] [address] [id number] [place] [address]- 2882 Jan, [facility] [place] [facility] [address] [id number] [place] [address]- 8251 Dec, [facility] [place] [facility] [address] [id number], [place] [address]- 2340 Dec, [facility] [place] [facility] [address] [id number], [place] [address]- 3396 Dec, [facility] [place] [facility] [address] [id number] [place] [address]- 4263 Dec, [facility] [place] [facility] [address] [id number] [place] [address]- 3494 Nov, [facility] [place] [facility] [address] [id number] [place] [address]- 8940 Nov, [facility] [place] [facility] [address] [id number] [place]01 03 Nov, 2011 [facility] [address] [id number] [place] [address]- 6600 03 Oct, 2011 [facility] [place] [facility] [address] [id number] [place] [address]- 0266 31 Sep, 2011 [facility] [place] [facility] [address] [id number] [place] [address]- 9473 26 Sep, 2011 [facility] [place] [facility] [address] [id number] [place] [address] 254 13 Sep, 2011 [facility] [address] [id number] [place] [address]- 0814 15 Nov, 2010 [facility] [place] [facility] [address] [id number] [place] [address]- 8431 23 Oct, 2010 [facility] [place] [facility] [address] [id number] [place] [address]- 5883 Oct, [facility] [place] [facility] [address] [id number] [place] [address]- 1876 18 Oct, 2010 [facility] [place] [facility] [address] [id number] [place] [address]- 1673 16 Oct, 2010 [facility] [place] [facility] [address] [facility] [id number] [place] [address]- 9392 11 Sep, 2010 [facility] [place] [facility] [address] [id number] [place] [address]- 0935 April, [facility] [place] [facility] [address] [id number] [place] [address]- 254 29 Nov, 2009 [facility] [place] [facility] [address] [id number] [place] [address] 2544 24 Nov, 2009 [facility] [place] [facility] [address] [id number] [place] [address]- 2543 22 Nov, 2009 [facility] [place] [facility] [address] [id number] [place] [address]- 4240 Nov, [facility] [address] [facility] [id number], [place] [address]- 2621 Nov, [facility] [address] [facility] [id number], [place] [address]- 4346 Oct, [facility] [address] [facility] [id number], [place] [address]- 1266 Oct, [facility] [id number] [address] 6980 Sep, [facility] [address] [facility] [id number][place] [address] Jan, IMMUNIZATIONS No Known Immunizations SOCIAL HISTORY Never Assessed REASON FOR VISIT Meeting with pt and son PLAN OF CARE Activity Details Follow Up prn Reason: VITAL SIGNS MEDICATIONS Medication Instructions Dosage Frequency Start Date End Date Duration Status BuPROPion HCl ER (XL) 150 MG TAKE 1 TABLET BY MOUTH ONCE DAILY 30 Active Melatonin 3 MG Orally Once a day 1 tablet at bedtime as needed with food 24h Active Colace 100 mg Orally Once a day 1 capsule 24h Mar, 30 day(s) Active Pravastatin Sodium 20 MG TAKE 1 TABLET BY MOUTH EVERY NIGHT AT BEDTIME 30 Active Protonix 40 MG Orally Once a day 1 tablet 24h Active Duloxetine HCl 60 MG TAKE 1 CAPSULE BY MOUTH ONCE DAILY 30 Active Risperidone 2 MG TAKE 1 TABLET BY MOUTH TWICE DAILY 30 Active Isopto Tears 0.5 % Ophthalmic every 6 hours as needed for PRN- dry eyes 1 drop in both eyes Active Acetaminophen 325 MG Orally every 6 hrs 2 tablets as needed 6h Mar, Active Aspir-81 81 MG Orally Once a day 1 tablet 24h 07 Nov, 2016 Active Desoximetasone 0.25 % Externally Twice a day prn 1 application to affected area April, Active BuPROPion HCl ER (XL) 150 MG TAKE 1 TABLET BY MOUTH ONCE DAILY 30 Active Rivastigmine 4.6 MG/24HR APPLY ONE PATCH EXTERNALLY ONCE DAILY 30 Active Enulose 10 GM/15ML GIVE 30ML BY MOUTH ONCE DAILY 30 Active Rivastigmine 4.6 MG/24HR APPLY ONE PATCH TRANSDERMALLY EVERY DAY 30 Active Clonazepam 0.5 MG Orally Once a day at bedtime 1 tablet at bedtime 28 days Active Tylenol Extra Strength 500 mg Orally every 6 hrs 1 tablet as needed 6h 15 Jan, 2018 Active Mirtazapine 15 MG TAKE 1 TABLET BY MOUTH EVERY NIGHT AT BEDTIME 30 Active Pantoprazole Sodium 40 MG TAKE 1 TABLET BY MOUTH EVERY NIGHT AT BEDTIME 30 Active Vitamin D-3 1000 UNIT Orally Once a day at bedtime 2 capsules Active Folic Acid 1 MG Orally Once a day at bedime 1 tablet Active Duloxetine HCl 60 MG TAKE 1 CAPSULE BY MOUTH ONCE DAILY 30 Active RESULTS No Results PROCEDURES Procedure Date Ordered Result Body Site Minor complication (15 mins) May 08, 2018 INSTRUCTIONS MEDICATIONS ADMINISTERED No Known Medications [...] History Intertrechanteric hip fx 04/27/16 Hospitalization History [facility] ([facility]patient [facility]) Hx of 3 inpatient psych treatments in past in [place] oct 2016 [facility] History [facility] 2016
--- OUTSIDE RECORDS SUMMARY | 2018-08-20 12:57 | XMS REPORT ---
Author Author WOLF AGUIRRE [facility] Address [address] [place] [address] Care Team Providers Care Product Expert Name Role Phone WOLF AGUIRRE Unavailable PROBLEMS Type Condition ICD9-CM Code EYG01-FM Code Onset Dates Condition Status SNOMED Code Problem Sundowning F05 Active 619617256 Problem Constipation, unspecified constipation type K59.00 Active 33528315 Problem Reactive depression F32.9 Active 30562021 Problem Vascular dementia with behavior disturbance F01.51 Active 076172503417011 Problem Insomnia, unspecified type G47.00 Active 470147851 Problem Generalized anxiety disorder F41.1 Active 97471656 Problem Other chronic pain G89.29 Active 34898880 Problem Severe episode of recurrent major depressive disorder, without psychotic features F33.2 Active 10096076 Problem Slow transit constipation K59.01 Active 29987736 Problem 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 Active 774196032 Problem Obsessive thinking F42.8 Active 26877961 Problem Failure to thrive in adult R62.7 Active 389327870 Problem Dysthymic disorder F34.1 Active 67079709 Problem Hypertension I10 Active 33685455 Problem Mood disorder F39 Active 69259343 Problem Irritable bowel syndrome with diarrhea K58.0 Active 772912188 Problem Oropharyngeal dysphagia R13.12 Active 95358391 Problem 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 Active 94835009 Problem Other chronic pain G89.29 Active 66701599 Problem Primary insomnia F51.01 Active 3821107 Problem Poor appetite R63.0 Active 33037507 Problem 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 Active 619204974814224 Problem Iron deficiency anemia secondary to inadequate dietary iron intake D50.8 Active 151695260 Problem Coarse tremors G25.2 Active 31577265 Problem Gastroesophageal reflux disease without esophagitis K21.9 Active 215161185 Problem Essential hypertension I10 Active 41757119 ALLERGIES No Information ENCOUNTERS Encounter Location Date Diagnosis [facility] [address] [address] Jul, [facility] [id number] [place] [address] 24473- 9387 Jun, [facility] [id number] [place] [address] 64372- 9888 Jun, [facility] [address] [place] [address] Jun, Left lower quadrant pain R10.32 and Left leg pain M79.605 [facility] [id number] [place] [address] 92010- 7930 Jun, [facility] [address] [address] Jun, Pain in left hip M25.552 ; Pain in right hip M25.551 and Primary insomnia F51.01 [facility] [address] [place] [address] 25665- 2423 Jun, [facility] [address] [place] [id number] May, [facility] [address] [place] [address] 77078- 1474 May, [facility] [address] [place] [address] 91220- 3696 May, [facility] [address] [id number] May, Mood disorder F39 [facility] [address] [address] 7389 May, [facility] [id number] [place] [address] 86829- 4497 April, [facility] [address] [id number] April, Generalized anxiety disorder F41.1 ; Obsessive thinking F42.8 and Insomnia , unspecified type G47.00 [facility] [address] [address] 7[address] April, [facility] [address] [place] [address] 38724- 8435 April, Rash of face R21 [facility] [address] [address] 3[address] Mar, [facility] [id number] [place] [address] 11302- 5583 Mar, [facility] [address] [place] [address] 52649- 6696 Mar, [facility] [id number] [place] [address] 98518- 7443 Jan, [facility] [id number] [place] [address] 15653- 6496 Jan, [facility] [id number] Jan, Constipation, unspecified constipation type K59.00 and Other chronic pain G89.29 [facility] [address] [place] [address] 46022- 7315 Jan, [facility] [address] [id number] Jan, Obsessive thinking F42.8 and Coarse tremors G25.2 [facility] [id number] [place] [address] [id number] Jan, [facility] [id number] [address] Jan, [facility] [address] [id number] Jan, Generalized anxiety disorder F41.1 ; Obsessive thinking F42.8 ; Callus of foot L84 and 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 [facility] [address] [address] 6615 Dec, Generalized anxiety disorder F41.1 and Severe episode of recurrent major depressive disorder, without psychotic features F33.2 [facility] [address] [address] 1219 Nov, [facility] [address] [address]- 8570 Nov, [facility] [address] [id number] Nov, Oropharyngeal dysphagia R13.12 ; Generalized anxiety disorder F41.1 and 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 [facility] [address] [address]- 0785 Nov, [facility] [id number] [place] [address] [id number] Nov, [facility] [address] [place] [address] 12741- 3716 Nov, [facility] [address] [place] [address] 06465- 9081 Nov, [facility] [address] [place] [address] 71680- 4874 Oct, Constipation, unspecified constipation type K59.00 and Mood disorder F39 [facility] [address] [address] 2432 Oct, [facility] [id number] [place] [id number] Sep, [facility] [id number] [id number] Sep, [facility] [id number] [place] [address] [id number] Sep, [facility] [id number] [place] [address] [id number] Sep, [facility] [address] [address] Sep, Generalized abdominal pain R10.84 [facility] [address] [address]- 6656 Sep, [facility] [id number] [place] [address] Sep, Generalized anxiety disorder F41.1 and Primary insomnia F51.01 [facility] [id number] [address] Aug, [facility] [id number] [place] [address] [id number] Aug, Generalized anxiety disorder F41.1 [facility] [id number] [address]- 0881 Jul, [facility] [address] [id number] Jul, Obsessive thinking F42.8 [facility] [address] [address]- 9836 Jul, Generalized anxiety disorder F41.1 and Irritable bowel syndrome with diarrhea K58.0 [facility] [id number] [address] Jul, Generalized anxiety disorder F41.1 [facility] [id number] [place] [address] [id number] Jun, Generalized anxiety disorder F41.1 [facility] [id number] [address] 2896 May, [facility] [address] [id number] May, Generalized anxiety disorder F41.1 ; Irritable bowel syndrome with diarrhea K58.0 and Coarse tremors G25.2 [facility] [address] [address] 3225 April, [facility] [address] [address]- 8461 April, [facility] [address] [address]- 7567 April, [facility] [address] [address]- 7172 Mar, [facility] [address] [id number] Mar, Severe episode of recurrent major depressive disorder, without psychotic features F33.2 and Pain in left hip M25.552 [facility] [address] [place] [address] 79846- 8040 Mar, [facility] [id number] [place] [address] 47380- 8295 Mar, [facility] [id number] [place] [address] 82666- 8344 Mar, [facility] [id number] [place] [address] 87057- 7561 Mar, Pain in right hip M25.551 and Self-care deficit in patient living alone R46.89 [facility] [id number] [place] [address] 42287 -5959 Jan, Other chronic pain G89.29 ; Pain in left hip M25.552 and Slow transit constipation K59.01 [facility] [address] [place] [address] 88899- 8295 Jan, [facility] [address] [place] [address] 00014- 9419 Dec, Other depression F32.89 ; Constipation, unspecified constipation type K59.00 and Insomnia, unspecified type G47.00 [facility] [address] [place] [address] 52432- 3688 Nov, Reactive depression F32.9 ; Chronic idiopathic constipation K59.04 ; Generalized anxiety disorder F41.1 ; Coarse tremors G25.2 ; Gastroesophageal reflux disease without esophagitis K21.9 ; Dysthymic disorder F34.1 ; Vitamin deficiency, unspecified E56.9 and Primary insomnia F51.01 [facility] [id number] [place] [address] 41359- 6657 Nov, [facility] [id number] [place] [address] 81022- 6858 Nov, [facility] [id number] [place] [address] 38959- 4302 Nov, [facility] [id number] [place] [address] 85802- 5071 Nov, Reactive depression F32.9 ; Essential hypertension I10 ; Generalized anxiety disorder F41.1 ; 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 ; Pain in right hip M25.551 ; Other chronic pain G89.29 ; Chronic idiopathic constipation K59.04 ; Primary insomnia F51.01 ; Coarse tremors G25.2 ; Gastroesophageal reflux disease without esophagitis K21.9 ; Iron deficiency anemia secondary to inadequate dietary iron intake D50.8 and Vitamin deficiency, unspecified E56.9 [facility] [id number] [place] [address] 86847- 4817 Oct, [facility] [id number] [place] [address] 02712- 6108 Oct, [facility] [id number] [place] [address] 92938- 5189 Oct, [facility] [id number] [place] [address] 35881- 7985 Oct, Generalized anxiety disorder F41.1 ; Poor appetite R63.0 ; Dehydration E86.0 and Failure to thrive in adult R62.7 [facility] [id number] [place] [address] 32690- 7694 07 Oct, 2016 Generalized anxiety disorder F41.1 and Failure to thrive in adult R62.7 [facility] [id number] [place] [address] 64965- 8783 Oct, [facility] [id number] [place] [address] 90436- 3081 Oct, [facility] [address] [place] [address] 62339 -1664 Sep, Vaginal discharge N89.8 and Acute cystitis with hematuria N30.01 [facility] [id number] [place] [address] 81470- 1155 Sep, [facility] [id number] [place] [address] 19625- 4518 Sep, [facility] [address] 78368- 7669 Sep, Dysthymic disorder F34.1 ; Acute vaginitis N76.0 ; Dysuria R30.0 and Vaginal yeast infection B37.3 [facility] [id number] [place] [address] 46524- 0779 Aug, [facility] [address] 24064- 8634 Aug, [facility] [id number] [place] [address] 08723 -0258 Aug, Foul smelling urine R82.90 ; Rapid heart rate R00.0 and Flatulence R14.3 [facility] [id number] [place] [address] 54394- 6410 Aug, [facility] [id number] [place] [address] 08712- 2264 Jul, Constipation, unspecified constipation type K59.00 ; Weak R53.1 ; Poor appetite R63.0 ; Coronary artery disease involving chitimacha heart without angina pectoris, unspecified vessel or lesion type I25.10 ; Fatigue, unspecified type R53.83 ; Urinary incontinence, unspecified type R32 and Insomnia, unspecified type G47.00 [facility] [id number] [place] [address] 12311- 5874 Jul, [facility] [id number] [place] [address] 14536- 3326 Jun, Dysuria R30.0 [facility] [id number] [place] [address] 52626- 2946 Jun, [facility] [address] 27889- 4112 Jun, Urinary tract infection, site not specified N39.0 ; Acute vaginitis N76.0 and Diarrhea, unspecified type R19.7 [facility] [address] 01735- 7693 May, [facility] [id number] [place] [address] 36324- 7738 April, [facility] [address] [id number] April, Encounter for dental examination Z01.20 [facility] [address] 84810- 8496 April, [facility] [address] 29728- 6895 April, Tremor R25.1 and Episodic tension-type headache, not intractable G44.219 [facility] [id number] [place] [address] 11747- 0916 Mar, [facility] [id number] [place] [address] 81490- 5884 Jan, Mood disorder F39 [facility] [id number] [place] [address] 48252 -6381 Jan, [facility] [id number] [place] [address] 54102- 9822 Jan, [facility] [address] 21979- 1502 Jan, [facility] [id number] [place] [address] 57691- 7906 Jan, [facility] [id number] [place] [address] 96538- 5508 Jan, [facility] [address] [place] [address] 03276- 0735 Jan, [facility] [id number] [place] [address] 22756 -4807 Dec, Acute diarrhea R19.7 [facility] [id number] [place] [address] 64031- 7935 Dec, [facility] [id number] [place] [address] 34547- 0970 Dec, [facility] [id number] [place] [address] 99610- 3203 Dec, [facility] [id number] [place] [address] 75260 -3792 Dec, N&V (nausea and vomiting) R11.2 [facility] [id number] [place] [address] 14859- 9457 Dec, Generalized anxiety disorder F41.1 [facility] [id number] [place] [address] 23188- 5035 Dec, Generalized anxiety disorder F41.1 [facility] [id number] [place] [address] 25999- 4630 Nov, Post concussion syndrome F07.81 [facility] [id number] [place] [address] 10084- 9897 Nov, Generalized anxiety disorder F41.1 [facility] [id number] [place] [address] 78559- 9680 Nov, [facility] [id number] [place] [address] 09831- 0389 Nov, Generalized anxiety disorder F41.1 [facility] [address] [place] [address] [id number] Oct, Dental caries K02.9 [facility] [id number] [place] [address] 47632- 8329 Oct, [facility] [address] [place] [address] [id number] Oct, Dental examination Z01.20 [facility] [id number] [place] [address] [id number] 10 Oct, 2015 Encounter for dental examination Z01.20 [facility] [address] 32282- 8006 Oct, CAD (coronary artery disease) I25.10 [facility] [id number] [place] [address] 58501- 7244 Sep, Generalized anxiety disorder F41.1 [facility] [id number] [place] [address] 93765- 4731 Sep, [facility] [address] 72678- 7423 Sep, Rash and other nonspecific skin eruption R21 and Yeast vaginitis B37.3 [facility] [id number] [place] [address] 16233- 8522 Sep, Generalized anxiety disorder F41.1 [facility] [id number] [place] [address] 56939- 5740 Aug, Insect bites 919.4 and Hemorrhoids 455.6 [facility] [address] 75326- 6439 Aug, Generalized anxiety disorder 300.02 [facility] [id number] [place] [address] 31232- 4144 Aug, [facility] [address] 14197- 2962 Aug, [facility] [address] 40401- 0000 Aug, Generalized anxiety disorder 300.02 ; No condition on [place] II V71.09 ; Heart problem 429.9 and Hypertension 401.9 [facility] [facility] [address] [facility] [id number] [address]- 2430 Aug, [facility] [address] [address]- 8737 Jul, [facility] [address] [facility] [id number] [address]- 8284 Jul, [facility] [address] [address]- 4194 Jul, [facility] [address] [facility] [id number] [address]- 9891 Jul, [facility] [address] [address]- 4628 Jul, Rash 782.1 [facility] [address] [address]- 2836 Jul, UTI (urinary tract infection) 599.0 [facility] [address] [address]- 5594 Jul, [facility] [address] [address]- 6099 Jun, Dysthymia 300.4 and Anxiety 300.00 [facility] [address] [address]- 9805 Jun, 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 [facility] [address] [address]- 8820 May, [facility] [id number] [address]- 4526 May, [facility] [address] [address]- 7872 May, Unspecified breast screening V76.10 [facility] [address] [id number] [id number] May, Dental examination V72.2 [facility] [address] [place] [address]- 6436 April, [facility] [address] [id number] [address]- 2016 April, [facility] [place] [facility] [address] [id number] [place] [id number] April, Dental examination V72.2 [facility] [address] [id number] [place] [id number] April, Dental examination V72.2 [facility] [address] [id number] [place] [address]- 7381 Mar, [facility] [place] [facility] [address] [id number] [place] [address]- 3557 Mar, [facility] [place] [facility] [address] [id number] [place] [address]- 1077 Jan, [facility] [place] [facility] [address] [id number] [place] [address]- 5597 25 Jan, 2015 [facility] [place] [facility] [address] [id number] [place] [address]- 2265 18 Jan, 2015 [facility] [place] [facility] [address] [id number] [place] [address]- 1536 18 Jan, 2015 [facility] [place] [facility] [address] [id number] [place]- 4962 16 Jan, 2015 [facility] [place] [facility] [address] [id number] [place] [address]- 5732 16 Jan, 2015 [facility] [place] [facility] [address] [id number] [place]- 8256 13 Jan, 2015 [facility] [place] [facility] [address] [id number] [place]- 6648 13 Jan, 2015 [facility] [place] [facility] [address] [id number] [address]- 2030 11 Jan, 2015 [facility] [place] [facility] [address] [id number] [place] [address]- 0150 Jan, [facility] [place] [facility] [address] [id number] [place] [address]- 9042 Jan, [facility] [place] [facility] [address] [id number] [place] [address]- 8325 Jan, [facility] [place] [facility] [address] [facility] [id number] [place] [address]- 0446 Jan, [facility] [place] [facility] [address] [id number] [place] [address]- 0894 Jan, [facility] [place] [facility] [address] [id number] [place] [address]- 8236 Jan, [facility] [place] [facility] [address] [facility] [id number] [place] [address]- 2315 Jan, [facility] [place] [facility] [address] [facility] [id number] [place] [address]- 5960 Jan, [facility] [place] [facility] [address] [facility] [id number] [place] [address]- 1982 Jan, [facility] [place] [facility] [address] [facility] [id number] [place] [address]- 2325 Jan, [facility] [place] [facility] [address] [facility] [id number] [place] [address]- 6767 Jan, [facility] [place] [facility] [address] [id number] [place] [address] Jan, [facility] [place] [facility] [address] [id number] [address] Jan, [facility] [place] [facility] [address] [id number] [place] [address] Dec, [facility] [place] [facility] [address] [id number] [place] [address] Dec, [facility] [place] [facility] [address] [id number] [address] Dec, [facility] [place] [facility] [address] [id number] [place] [address] Dec, [facility] [place] [facility] [address] [id number] [place] [address] Nov, [facility] [place] [facility] [address] [id number] [place] [address] Nov, [facility] [place] [facility] [address] [id number] [place] [address] Nov, [facility] [place] [facility] [address] [id number] [place] [address] Nov, [facility] [place] [facility] [address] [id number] [place] [address] Nov, [facility] [place] [facility] [address] [id number] [place] [address] Nov, [facility] [place] [facility] [address] [id number] [place] [address] Nov, [facility] [place] [facility] [address] [id number] [place] [address] Oct, [facility] [place] [facility] [address] [id number] [place] [address] Oct, [facility] [place] [facility] [address] [id number] [place] [address] Oct, [facility] [place] [facility] [address] [id number] [place] [address] Oct, [facility] [place] [facility] [address] [id number] [place] [address] Oct, [facility] [place] [facility] [address] [id number] [place] [address] Oct, [facility] [place] [facility] [address] [id number] [place] [address] Oct, [facility] [place] [facility] [address] [id number] [place] [address] Oct, [facility] [place] [facility] [address] [id number] [place] [address] Oct, [facility] [place] [facility] [address] [id number] [place] [address] Oct, [facility] [place] [facility] [address] [id number] [place] [address] Oct, [facility] [place] [facility] [address] [id number] [place] [address] Oct, [facility] [place] [facility] [address] [id number] [place] [address] Sep, [facility] [place] [facility] [address] [id number] [place] [address] Sep, [facility] [place] [facility] [address] [id number] [place] [address] 1466 Sep, [facility] [place] [facility] [address] [id number] [place] [address] Sep, [facility] [place] [facility] [address] [id number] [place] [address] Jul, [facility] [place] [facility] [address] [id number] [place] [address] 1688 Jul, [facility] [place] [facility] [address] [id number] [place] [address] Jul, [facility] [place] [facility] [address] [id number] [place] [address] 8[address] Jul, [facility] [place] [facility] [address] [id number] [place] [address] 1006 Jun, [facility] [place] [facility] [address] [id number] [place] [address]- 3[address] Jun, [facility] [place] [facility] [address] [id number] [place] [address] 2022 Jun, [facility] [place] [facility] [address] [id number] [place] [address]- 4[address] Jun, [facility] [address] [id number] [place] [address] 8279 May, [facility] [address] [id number] [place] [address] May, [facility] [address] [id number] [place] [address]- 9242 April, [facility] [address] [id number] [place] [address]- 8[address] April, [facility] [address] [id number] [place] [address]- 1821 April, [facility] [address] [id number] [place] [address]- 0562 April, [facility] [address] [id number] [place] [address]- 3033 April, [facility] [address] [id number] [place] [address]- 8101 April, [facility] [address] [id number] [place] [address]- 0852 April, [facility] [address] [id number] [place] [address] 8813 April, [facility] [address] [id number] [place] [address]- 8224 April, [facility] [address] [id number] [place] [address]- 1795 Mar, [facility] [place] [facility] [address] [id number] [place] [address]- 9729 Mar, [facility] [address] [id number] [place] [address]- 0903 Mar, [facility] [address] [id number] [place] [address]- 3516 Mar, [facility] [place] [facility] [address] [id number] [place] [address]- 2084 Jan, [facility] [place] [facility] [address] [id number] [place] [address]- 7589 Jan, [facility] [place] [facility] [address] [id number] [place] [address]- 9618 Jan, [facility] [place] [facility] [address] [id number] [place] [address]- 8445 Jan, [facility] [place] [facility] [address] [id number] [place] [address]- 0896 Jan, [facility] [place] [facility] [address] [id number] [place] [address]- 8366 Jan, [facility] [place] [facility] [address] [id number] [place] [address]- 0024 Jan, [facility] [place] [facility] [address] [id number] [place] [address]- 9549 Jan, [facility] [place] [facility] [address] [id number] [place] [address]- 67[address] Jan, [facility] [place] [facility] [address] [id number] [place] [address]- 8040 Jan, [facility] [place] [facility] [address] [id number] [place] [address]- 5486 Jan, [facility] [place] [facility] [address] [id number] [place] [address]- 0682 Jan, [facility] [place] [facility] [address] [id number] [place] [address]- 3448 Dec, [facility] [place] [facility] [address] [id number] [place] [address]- 4846 Dec, [facility] [place] [facility] [address] [id number] [place] [address]- 5089 Dec, [facility] [place] [facility] [address] [id number] [place] [address]- 1050 Dec, [facility] [address] [id number] [place] [address]- 2878 Nov, [facility] [place] [facility] [address] [id number] [place] [address] Nov, [facility] [place] [facility] [address] [id number] [place] [address]- 6550 Nov, [facility] [place] [facility] [address] [id number] [place] [address]- 2642 Nov, [facility] [place] [facility] [address] [id number] [place] [address]- 6305 Oct, [facility] [place] [facility] [address] [id number] [place] [address]- 3700 Oct, [facility] [place] [facility] [address] [id number] [place] [address]- 7697 Sep, [facility] [place] [facility] [address] [id number] [place] [address]- 7807 Sep, [facility] [place] [facility] [address] [id number] [place] [address]- 3977 Jul, [facility] [place] [facility] [address] [id number] [place] [address]- 0938 Jul, [facility] [place] [facility] [address] [id number] [place] [address]- 2070 Jun, [facility] [place] [facility] [address] [id number] [place] [address]- 3855 Jun, [facility] [place] [facility] [address] [id number] [place] [address]- 6747 Jun, [facility] [place] [facility] [address] [id number] [place] [address]- 7818 May, [facility] [place] [facility] [address] [id number] [place] [address]- 1869 May, [facility] [place] [facility] [address] [id number] [place] [address]- 5851 May, [facility] [address] [id number] [place] [address]- 4777 May, [facility] [address] [id number] [place] [address]- 9607 May, [facility] [address] [id number] [place] [address]- 6883 April, [facility] [address] [id number] [place] [address]- 3516 April, [facility] [address] [id number] [place] [address]- 3243 April, [facility] [address] [id number] [place] [address]- 1328 April, [facility] [address] [id number] [place] [address]- 5731 April, [facility] [address] [id number] [place] [address]- 4156 April, [facility] [address] [id number] [place] [address]- 4194 Mar, [facility] [address] [id number] [place] [address]- 4064 Mar, [facility] [address] [id number] [place] [address] 1961 Jan, [facility] [place] [facility] [address] [id number] [place] [address] 1953 Jan, [facility] [place] [facility] [address] [id number] [place] [address]- 8249 Jan, [facility] [place] [facility] [address] [id number] [place] [address]- 3123 05 Jan, 2013 [facility] [place] [facility] [address] [id number] [place] [address]- 5876 13 Jan, 2012 [facility] [address] [id number] [place] [address]- 2596 12 Jan, 2012 [facility] [address] [id number] [place] [address] 2546 05 Jan, 2012 [facility] [address] [id number] [place] [address] 2546 04 Jan, 2012 [facility] [address] [id number] [place] [address] 2546 03 Jan, 2012 [facility] [address] [id number] [place] [address]- 3526 Jan, 2012 [facility] [address] [id number] [place] [address]- 5456 Jan, [facility] [address] [id number] [place] [address]- 3779 Dec, [facility] [address] [id number] [place] [address]- 8227 Nov, [facility] [address] [id number] [place] [address]- 9926 Nov, [facility] [address] [id number] [place] [address]- 7020 Nov, [facility] [address] [id number] [place] [address] 2546 Nov, [facility] [address] [id number] [place] [address] 2546 Nov, [facility] [address] [id number] [place] [address] 2540 Nov, [facility] [address] [id number] [place] [address]- 2542 Nov, [facility] [address] [id number] [place] [address]- 2549 Nov, [facility] [place] [facility] [address] [id number] [place] [address]- 3546 Nov, [facility] [place] [facility] [address] [id number] [place] [address]- 1611 Nov, [facility] [place] [facility] [address] [id number] [place] [address] Nov, [facility] [place] [facility] [address] [id number] [place] [address]- 9435 Nov, [facility] [place] [facility] [address] [id number] [place] [address]- 9501 Nov, [facility] [place] [facility] [address] [id number] [place] [address]- 2060 Oct, [facility] [place] [facility] [address] [id number] [place] [address]- 8346 Oct, [facility] [place] [facility] [address] [id number] [place] [address]- 5633 Oct, [facility] [place] [facility] [address] [id number] [place] [address]- 2151 Sep, [facility] [place] [facility] [address] [id number] [place] [address]- 9936 Sep, [facility] [place] [facility] [address] [id number] [place] [address]- 1408 Sep, [facility] [place] [facility] [address] [id number] [place] [address]- 5356 Sep, [facility] [place] [facility] [address] [id number] [place] [address]- 1211 27 Aug, 2012 [facility] [place] [facility] [address] [id number] [place] [address]16 20 Aug, 2012 [facility] [place] [facility] [address] [id number] [place] [address]- 1595 Jul, [facility] [place] [facility] [address] [id number] [place] [address]- 4839 May, [facility] [address] [id number] [place] [address]- 6838 May, [facility] [place] [facility] [address] [id number] [place] [address]- 5811 May, [facility] [place] [facility] [address] [id number] [place] [address]- 1138 April, [facility] [place] [facility] [address] [id number] [place] [address]- 6292 Mar, [facility] [place] [facility] [address] [id number] [place] [address]- 1835 Mar, [facility] [place] [facility] [address] [id number] [place] [address]- 4690 Mar, [facility] [place] [facility] [address] [id number] [place] [address]- 2308 Jan, [facility] [place] [facility] [address] [id number] [place] [address]- 7876 Jan, [facility] [place] [facility] [address] [id number] [place] [address]- 9951 Jan, [facility] [place] [facility] [address] [id number] [place] [address]- 2180 Dec, [facility] [place] [facility] [address] [id number] [address]- 3619 Dec, [facility] [place] [facility] [address] [id number] [place] [address]- 4421 Dec, [facility] [place] [facility] [address] [id number] [place] [address]- 1269 Dec, [facility] [place] [facility] [address] [id number] [place] [address]- 9525 Nov, [facility] [place] [facility] [address] [id number] [place] [address]- 6409 Nov, [facility] [place] [facility] [address] [id number] [place] [address] 03 Nov, 2011 [facility] [address] [id number] [place] [address]- 9222 03 Oct, 2011 [facility] [place] [facility] [address] [id number] [place] [address]- 7106 31 Sep, 2011 [facility] [place] [facility] [address] [id number] [place] [address]- 3891 26 Sep, 2011 [facility] [place] [facility] [address] [id number] [place] [address] 2548 13 Sep, 2011 [facility] [address] [id number] [place] [address]- 5471 15 Nov, 2010 [facility] [place] [facility] [address] [id number] [place] [address]- 9488 23 Oct, 2010 [facility] [place] [facility] [address] [id number] [place] [address]- 8718 Oct, [facility] [place] [facility] [address] [id number] [place] [address]- 2134 18 Oct, 2010 [facility] [place] [facility] [address] [id number] [place] [address]- 8668 16 Oct, 2010 [facility] [place] [facility] [address] [id number] [place] [address]- 5137 11 Sep, 2010 [facility] [place] [facility] [address] [id number] [place] [address]- 7073 April, [facility] [place] [facility] [address] [id number] [place] [address]- 2547 29 Nov, 2009 [facility] [place] [facility] [address] [id number] [place] [address] 2543 24 Nov, 2009 [facility] [place] [facility] [address] [id number] [place] [address]- 2540 22 Nov, 2009 [facility] [place] [facility] [address] [id number] [place] [address]- 9667 Nov, [facility] [address] [id number] [address]- 5101 Nov, [facility] [address] [id number] [address]- 5656 Oct, [facility] [address] [id number] [place] [address]- 4456 Oct, [place] [id number] [address]- [address] Sep, [place] [address] [id number] [address]66 Jan, IMMUNIZATIONS No Known Immunizations SOCIAL HISTORY Never Assessed REASON FOR VISIT Med list update PLAN OF CARE VITAL SIGNS MEDICATIONS Medication Instructions Dosage Frequency Start Date End Date Duration Status Vitamin D-3 1000 UNIT Orally Once a day at bedtime 2 capsules Active Pravastatin Sodium 20 mg Orally Once a day 1 tablet 24h Active Isopto Tears 0.5 % Ophthalmic every 6 hours as needed for PRN- dry eyes 1 drop in both eyes Active Mirtazapine 15 mg Orally Once a day 1 tablet at bedtime 24h Active Rivastigmine 4.6 MG/24HR APPLY ONE PATCH EXTERNALLY ONCE DAILY 30 Active Aspir-81 81 MG Orally Once a day 1 tablet 24h Nov, Active Milk of Magnesia 7.75 % Orally once daily 30 ml as needed 24h Active Tylenol Extra Strength 500 mg Orally every 6 hrs 1 tablet as needed 6h 15 Jan, 2018 Active Risperidone 2 MG Orally 2 times a day 1 tablet 12h Active Colace 100 mg Orally Once a day 1 capsule 24h Mar, 30 day(s) Active Protonix 40 MG Orally Once a day 1 tablet 24h Active Clonazepam 0.5 MG Orally Once a day at bedtime 1 tablet at bedtime 28 days Active BuPROPion HCl ER (XL) 150 MG TAKE 1 TABLET BY MOUTH ONCE DAILY 30 Active Melatonin 3 MG Orally Once a day 1 tablet at bedtime as needed with food 24h Active Duloxetine HCl 60 mg Orally Once a day 1 capsule 24h Active Folic Acid 1 MG Orally Once a day at bedime 1 tablet Active Lactulose 20 GM/30ML Orally Once a day 30 ml 24h Active RESULTS No Results PROCEDURES No Known [...] History Intertrechanteric hip fx 04/27/16 Hospitalization History [facility] (inpatient [facility] times) Hx of 3 inpatient psych treatments in past in [place] oct 2016 [facility]
--- OUTSIDE RECORDS SUMMARY | 2018-08-20 12:57 | XMS REPORT ---
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 Name Role Phone WOLF AGUIRRE Unavailable PROBLEMS Type Condition ICD9-CM Code BQA65-UP Code Onset Dates Condition Status SNOMED Code Problem Sundowning F05 Active 050482195 Problem Constipation, unspecified constipation type K59.00 Active 71062023 Problem Reactive depression F32.9 Active 18039650 Problem Vascular dementia with behavior disturbance F01.51 Active 476500965511276 Problem Insomnia, unspecified type G47.00 Active 599869802 Problem Generalized anxiety disorder F41.1 Active 72417009 Problem Other chronic pain G89.29 Active 21579469 Problem Severe episode of recurrent major depressive disorder, without psychotic features F33.2 Active 83231171 Problem Slow transit constipation K59.01 Active 71149662 Problem 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 Active 781948156 Problem Obsessive thinking F42.8 Active 54796273 Problem Failure to thrive in adult R62.7 Active 689711797 Problem Dysthymic disorder F34.1 Active 46701897 Problem Hypertension I10 Active 01741150 Problem Mood disorder F39 Active 75149477 Problem Irritable bowel syndrome with diarrhea K58.0 Active 334494076 Problem Oropharyngeal dysphagia R13.12 Active 28299865 Problem 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 Active 72385203 Problem Other chronic pain G89.29 Active 18394708 Problem Primary insomnia F51.01 Active 7732141 Problem Poor appetite R63.0 Active 60432950 Problem 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 Active 842599563080925 Problem Iron deficiency anemia secondary to inadequate dietary iron intake D50.8 Active 618703375 Problem Coarse tremors G25.2 Active 11278711 Problem Gastroesophageal reflux disease without esophagitis K21.9 Active 755413108 Problem Essential hypertension I10 Active 85822215 ALLERGIES No Information ENCOUNTERS Encounter Location Date Diagnosis [facility] [id number] [address] Jul, [facility] [id number] [place] [address] 51349- 4269 Jun, [facility] [id number] [place] [address] 39110- 0773 Jun, [facility] [address] [id number] Jun, Left lower quadrant pain R10.32 and Left leg pain M79.605 [facility] [id number] [place] [address] 74968- 7583 Jun, [facility] [address] [id number] Jun, Pain in left hip M25.552 ; Pain in right hip M25.551 and Primary insomnia F51.01 [facility] [id number] [place] [address] 91244- 7469 Jun, [facility] [address] [id number] May, [facility] [id number] [place] [address] 56522- 7777 May, [facility] [id number] [place] [address] 28526- 2733 May, [facility] [address] [id number] May, Mood disorder F39 [facility] [address] [address] 5863 May, [facility] [id number] [place] [address] 58989- 4745 April, [facility] [address] [id number] April, Generalized anxiety disorder F41.1 ; Obsessive thinking F42.8 and Insomnia , unspecified type G47.00 [facility] [address] [address] 6[address] April, [facility] [id number] [place] [address] 34287- 7957 April, Rash of face R21 [facility] [address] [address] 6910 Mar, [facility] [id number] [place] [address] 18532- 9914 Mar, [facility] [id number] [place] [address] 67525- 3947 Mar, [facility] [id number] [place] [address] 88030- 0327 Jan, [facility] [id number] [place] [address] 05838- 2833 Jan, [facility] [id number] Jan, Constipation, unspecified constipation type K59.00 and Other chronic pain G89.29 [facility] [id number] [place] [address] 28968- 0255 Jan, [facility] [address] [id number] Jan, Obsessive thinking F42.8 and Coarse tremors G25.2 [facility] [id number] [place] [address] [id number] Jan, [facility] [id number] [address] Jan, [facility] [address] [id number] Jan, Generalized anxiety disorder F41.1 ; Obsessive thinking F42.8 ; Callus of foot L84 and 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 [facility] [address], [place] [address] 1482 Dec, Generalized anxiety disorder F41.1 and Severe episode of recurrent major depressive disorder, without psychotic features F33.2 [facility] [address], [place] [address] 9970 Nov, [facility] [address], [place] [address] 7858 Nov, [facility] [address] [id number] Nov, Oropharyngeal dysphagia R13.12 ; Generalized anxiety disorder F41.1 and 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 [facility] [address], [place] [address] 1345 Nov, [facility] [id number] [place] [address] [id number] Nov, [facility] [id number] [place] [address] 43910- 1647 Nov, [facility] [id number] [place] [address] 88526- 6535 Nov, [facility] [id number] [place] [address] 18476- 6646 Oct, Constipation, unspecified constipation type K59.00 and Mood disorder F39 [facility] [address], [place] [address] 1243 Oct, [facility] [id number] [place] [address] [id number] Sep, [facility] [id number] [address] Sep, [facility] [id number] [place] [address] [id number] Sep, [facility] [id number] [place] [address] [id number] Sep, [facility] [address] [id number] Sep, Generalized abdominal pain R10.84 [facility] [address], [place] [address] 4[address] Sep, [facility] [id number] [id number] Sep, Generalized anxiety disorder F41.1 and Primary insomnia F51.01 [facility] [id number] [address] Aug, [facility] [id number] [place] [address] [id number] Aug, Generalized anxiety disorder F41.1 [facility] [id number] [address] 8957 Jul, [facility] [address] [id number] Jul, Obsessive thinking F42.8 [facility] [address], [place] [address] 4[address] Jul, Generalized anxiety disorder F41.1 and Irritable bowel syndrome with diarrhea K58.0 [facility] [id number] [address] Jul, Generalized anxiety disorder F41.1 [facility] [id number] [place] [address] [id number] Jun, Generalized anxiety disorder F41.1 [facility] [id number] [address]92 May, [facility] [address] [address] May, Generalized anxiety disorder F41.1 ; Irritable bowel syndrome with diarrhea K58.0 and Coarse tremors G25.2 [facility] [address] [address] April, [facility] [address], [place] [address] 2926 April, [facility] [address], [place] [address]- 5[address] April, [facility] [address], [place] [address]- 7820 Mar, [facility] [address] [address] Mar, Severe episode of recurrent major depressive disorder, without psychotic features F33.2 and Pain in left hip M25.552 [facility] [address] [place] [address] 95455- 3017 Mar, [facility] [id number] [place] [address] 41037- 8803 Mar, [facility] [id number] [place] [address] 65558- 4096 Mar, [facility] [id number] [place] [address] 33000- 8697 Mar, Pain in right hip M25.551 and Self-care deficit in patient living alone R46.89 [facility] [id number] [place] [address] 02970 -5222 Jan, Other chronic pain G89.29 ; Pain in left hip M25.552 and Slow transit constipation K59.01 [facility] [id number] [place] [address] 85252- 0765 Jan, [facility] [id number] [place] [address] 99340- 8335 Dec, Other depression F32.89 ; Constipation, unspecified constipation type K59.00 and Insomnia, unspecified type G47.00 [facility] [address] [place] [address] 05738- 4635 Nov, Reactive depression F32.9 ; Chronic idiopathic constipation K59.04 ; Generalized anxiety disorder F41.1 ; Coarse tremors G25.2 ; Gastroesophageal reflux disease without esophagitis K21.9 ; Dysthymic disorder F34.1 ; Vitamin deficiency, unspecified E56.9 and Primary insomnia F51.01 [facility] [id number] [place] [address] 36717- 9718 Nov, [facility] [id number] [place] [address] 08234- 4271 Nov, [facility] [id number] [place] [address] 09279- 3933 Nov, [facility] [id number] [place] [address] 20615- 1422 Nov, Reactive depression F32.9 ; Essential hypertension I10 ; Generalized anxiety disorder F41.1 ; 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 ; Pain in right hip M25.551 ; Other chronic pain G89.29 ; Chronic idiopathic constipation K59.04 ; Primary insomnia F51.01 ; Coarse tremors G25.2 ; Gastroesophageal reflux disease without esophagitis K21.9 ; Iron deficiency anemia secondary to inadequate dietary iron intake D50.8 and Vitamin deficiency, unspecified E56.9 [facility] [id number] [place] [address] 15985- 8507 Oct, [facility] [id number] [place] [address] 63926- 3393 Oct, [facility] [id number] [place] [address] 47175- 6794 Oct, [facility] [id number] [place] [address] 54794- 4640 Oct, Generalized anxiety disorder F41.1 ; Poor appetite R63.0 ; Dehydration E86.0 and Failure to thrive in adult R62.7 [facility] [id number] [place] [address] 68906- 3225 07 Oct, 2016 Generalized anxiety disorder F41.1 and Failure to thrive in adult R62.7 [facility] [id number] [place] [address] 86679- 4816 Oct, [facility] [id number] [place] [address] 19703- 0185 Oct, [facility] [id number] [place] [address] 08587 -0215 Sep, Vaginal discharge N89.8 and Acute cystitis with hematuria N30.01 [facility] [id number] [place] [address] 54270- 0727 Sep, [facility] [id number] [place] [address] 24156- 3625 Sep, [facility] [address] [address]652- 1970 Sep, Dysthymic disorder F34.1 ; Acute vaginitis N76.0 ; Dysuria R30.0 and Vaginal yeast infection B37.3 [facility] [id number] [place] [address] 29270- 0846 Aug, [facility] [address] 85081- 7783 Aug, [facility] [id number] [place] [address] 52032 -0037 Aug, Foul smelling urine R82.90 ; Rapid heart rate R00.0 and Flatulence R14.3 [facility] [id number] [place] [address] 66078- 4705 Aug, [facility] [id number] [place] [address] 81658- 9224 Jul, Constipation, unspecified constipation type K59.00 ; Weak R53.1 ; Poor appetite R63.0 ; Coronary artery disease involving eklutna heart without angina pectoris, unspecified vessel or lesion type I25.10 ; Fatigue, unspecified type R53.83 ; Urinary incontinence, unspecified type R32 and Insomnia, unspecified type G47.00 [facility] [id number] [place] [address] 46305- 5193 Jul, [facility] [id number] [place] [address] 07600- 1883 Jun, Dysuria R30.0 [facility] [id number] [place] [address] 38635- 0776 Jun, [facility] [address] 91453- 5171 Jun, Urinary tract infection, site not specified N39.0 ; Acute vaginitis N76.0 and Diarrhea, unspecified type R19.7 [facility] [address] 00369- 4725 May, [facility] [id number] [place] [address] 13246- 8798 April, [facility] [address] [id number] April, Encounter for dental examination Z01.20 [facility] [address] 46234- 9637 April, [facility] [address] 77713- 8337 April, Tremor R25.1 and Episodic tension-type headache, not intractable G44.219 [facility] [id number] [place] [address] 88675- 2376 Mar, [facility] [id number] [place] [address] 70185- 7299 Jan, Mood disorder F39 [facility] [id number] [place] [address] 29360 -5559 Jan, [facility] [id number] [place] [address] 32679- 7581 Jan, [facility] [address] 58217- 0581 Jan, [facility] [id number] [place] [address] 36068- 9136 Jan, [facility] [id number] [place] [address] 61549- 6728 Jan, [facility] [id number] [place] [address] 17799- 4269 Jan, [facility] [id number] [place] [address] 67028 -4679 Dec, Acute diarrhea R19.7 [facility] [id number] [place] [address] 23478- 9574 Dec, [facility] [id number] [place] [address] 45150- 0377 Dec, [facility] [id number] [place] [address] 95192- 2484 Dec, [facility] [id number] [place] [address] 86028 -4243 Dec, N&V (nausea and vomiting) R11.2 [facility] [id number] [place] [address] 77514- 0044 Dec, Generalized anxiety disorder F41.1 [facility] [id number] [place] [address] 11857- 1606 Dec, Generalized anxiety disorder F41.1 [facility] [id number] [place] [address] 17544- 0640 Nov, Post concussion syndrome F07.81 [facility] [id number] [place] [address] 97923- 1371 Nov, Generalized anxiety disorder F41.1 [facility] [id number] [place] [address] 31635- 4364 Nov, [facility] [id number] [place] [address] 13465- 5972 Nov, Generalized anxiety disorder F41.1 [facility] [address] [place] [address] [id number] Oct, Dental caries K02.9 [facility] [id number] [place] [address] 02785- 0004 Oct, [facility] [address] [place] [address] [id number] Oct, Dental examination Z01.20 [facility] [id number] [place] [address] [id number] 10 Oct, 2015 Encounter for dental examination Z01.20 [facility] [address] 82093- 0306 Oct, CAD (coronary artery disease) I25.10 [facility] [id number] [place] [address] 56901- 0594 Sep, Generalized anxiety disorder F41.1 [facility] [id number] [place] [address] 80230- 3726 Sep, [facility] [address] 67576- 4114 Sep, Rash and other nonspecific skin eruption R21 and Yeast vaginitis B37.3 [facility] [id number] [place] [address] 73708- 8296 Sep, Generalized anxiety disorder F41.1 [facility] [id number] [place] [address] 85881- 2664 Aug, Insect bites 919.4 and Hemorrhoids 455.6 [place] [address] 30308- 7926 Aug, Generalized anxiety disorder 300.02 [facility] [id number] [place] [address] 13716- 5019 Aug, [facility] [address] 68632- 3830 Aug, [facility] [address] 39831- 8738 Aug, Generalized anxiety disorder 300.02 ; No condition on [place] II V71.09 ; Heart problem 429.9 and Hypertension 401.9 [place] [address] [facility] [id number] [address]- 5523 Aug, [facility] [address], [place] [address]- 0649 Jul, [facility] [address] [facility] [id number], [place] [address]- 1679 Jul, [facility] [address], [place] [address]- 6938 Jul, [facility] [address] [facility] [id number], [place] [address]- 8315 Jul, [facility] [address] [address]- 1254 Jul, Rash 782.1 [facility] [address], [place] [address]- 2809 Jul, UTI (urinary tract infection) 599.0 [facility] [address], [place] [address]- 7549 Jul, [facility] [address], [place] [address]- 2831 Jun, Dysthymia 300.4 and Anxiety 300.00 [facility] [address] [address]- 6411 Jun, 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 [facility] [address], [place] [address]- 0898 May, [facility] [id number] [address]- 4266 May, [facility] [address], [place] [address]- 6190 May, Unspecified breast screening V76.10 [facility] [address] [id number] [address] May, Dental examination V72.2 [facility] [address] [place] [address]- 8416 April, [facility] [address] [id number], [place] [address]- 7336 April, [facility] [place] [facility] [address] [id number] [id number] April, Dental examination V72.2 [facility] [address] [id number][place] [id number] April, Dental examination V72.2 [facility] [address] [id number] [place] [address]- 0204 Mar, [facility] [place] [facility] [address] [id number] [place] [address]- 8028 Mar, [facility] [place] [facility] [address] [id number] [place] [address]- 4602 Jan, [facility] [place] [facility] [address] [id number] [place] [address]- 7736 25 Jan, 2015 [facility] [place] [facility] [address] [id number] [place] [address]- 2791 18 Jan, 2015 [facility] [place] [facility] [address] [id number] [place] [address]- 1628 18 Jan, 2015 [facility] [place] [facility] [address] [id number] [place]- 4518 16 Jan, 2015 [facility] [place] [facility] [address] [id number], [place] [address]- 1306 16 Jan, 2015 [facility] [place] [facility] [address] [id number] [place]- 9107 13 Jan, 2015 [facility] [place] [facility] [address] [id number] [place] 3219 13 Jan, 2015 [facility] [place] [facility] [address] [id number], [place] [address]- 6772 11 Jan, 2015 [facility] [place] [facility] [address] [id number][place] [address]- 8937 Jan, [facility] [place] [facility] [address] [id number] [place] [address]- 4552 Jan, [facility] [place] [facility] [address] [id number] [place] [address]- 5839 Jan, [facility] [place] [facility] [address] [facility] [id number] [place] [address]- 8166 Jan, [facility] [place] [facility] [address] [id number] [place] [address]- 7134 Jan, [facility] [place] [facility] [address] [id number] [place] [address]- 5361 Jan, [facility] [place] [facility] [address] [facility] [id number] [place] [address]- 4957 Jan, [facility] [place] [facility] [address] [facility] [id number] [place] [address]- 2826 Jan, [facility] [place] [facility] [address] [facility] [id number] [place] [address]- 3919 Jan, [facility] [place] [facility] [address] [facility] [id number] [place] [address]- 5921 Jan, [facility] [place] [facility] [address] [facility] [id number] [place] [address]- 4722 Jan, [facility] [place] [facility] [address] [facility] [id number] [place] [address] Jan, [facility] [place] [facility] [address] [facility] [id number], [place] [address] Jan, [facility] [place] [facility] [address] [id number] [place] [address] Dec, [facility] [place] [facility] [address] [facility] [id number] [place] [address] Dec, [facility] [place] [facility] [address] [facility] [id number], [place] [address] Dec, [facility] [place] [facility] [address] [id number] [place] [address] Dec, [facility] [place] [facility] [address] [id number] [place] [address] Nov, [facility] [place] [facility] [address] [id number] [place] [address] Nov, [facility] [place] [facility] [address] [id number] [place] [address] Nov, [facility] [place] [facility] [address] [id number] [place] [address] Nov, [facility] [place] [facility] [address] [id number] [place] [address] Nov, [facility] [place] [facility] [address] [id number] [place] [address] Nov, [facility] [place] [facility] [address] [id number] [place] [address] Nov, [facility] [place] [facility] [address] [id number] [place] [address] Oct, [facility] [place] [facility] [address] [id number] [place] [address] Oct, [facility] [place] [facility] [address] [id number] [place] [address] Oct, [facility] [place] [facility] [address] [id number] [place] [address] Oct, [facility] [place] [facility] [address] [id number] [place] [address] Oct, [facility] [place] [facility] [address] [id number] [place] [address] Oct, [facility] [place] [facility] [address] [id number] [place] [address] Oct, [facility] [place] [facility] [address] [id number] [place] [address] Oct, [facility] [place] [facility] [address] [id number] [place] [address] Oct, [facility] [place] [facility] [address] [id number] [place] [address] Oct, [facility] [place] [facility] [address] [id number] [place] [address] Oct, [facility] [place] [facility] [address] [id number] [place] [address] Oct, [facility] [place] [facility] [address] [id number] [place] [address] Sep, [facility] [place] [facility] [address] [id number] [place] [address] Sep, [facility] [place] [facility] [address] [id number] [place] [address] Sep, [facility] [place] [facility] [address] [id number] [place] [address] Sep, [facility] [place] [facility] [address] [id number] [place] [address] Jul, [facility] [place] [facility] [address] [id number] [place] [address] Jul, [facility] [place] [facility] [address] [id number] [place] [address] Jul, [facility] [place] [facility] [address] [id number] [place] [address] Jul, [facility] [place] [facility] [address] [id number] [place] [address] Jun, [facility] [place] [facility] [address] [id number] [place] [address] 46[address] Jun, [facility] [place] [facility] [address] [id number] [place] [address] 0398 Jun, [facility] [place] [facility] [address] [id number] [place] [address] Jun, [facility] [address] [id number] [place] [address] 8[address] May, [facility] [address] [id number] [place] [address] May, [facility] [address] [id number] [place] [address] April, [facility] [address] [id number] [place] [address] 16[address] April, [facility] [address] [id number] [place] [address] 1971 April, [facility] [address] [id number] [place] [address] 7[address] April, [facility] [address] [id number] [place] [address] April, [facility] [address] [id number] [place] [address] 98[address] April, [facility] [address] [id number] [place] [address] 9523 April, [facility] [address] [id number] [place] [address] 54[address] April, [facility] [address] [id number] [place] [address] 56[address] April, [facility] [address] [id number] [place] [address] 70[address] Mar, [facility] [place] [facility] [address] [id number] [place] [address] Mar, [facility] [address] [id number] [place] [address]400 Mar, [facility] [address] [id number] [place] [address] 69[address] Mar, [facility] [place] [facility] [address] [id number] [place] [address] 1598 Jan, [facility] [place] [facility] [address] [id number] [place] [address] 245[address] Jan, [facility] [place] [facility] [address] [id number] [place] [address]- 5532 Jan, [facility] [place] [facility] [address] [id number] [place] [address]- 68[address] Jan, [facility] [place] [facility] [address] [id number] [place] [address]- 6765 Jan, [facility] [place] [facility] [address] [id number] [place] [address]- 6933 Jan, [facility] [place] [facility] [address] [id number] [place] [address]- 5475 Jan, [facility] [place] [facility] [address] [id number] [place] [address]- 8774 Jan, [facility] [place] [facility] [address] [id number] [place] [address] 5[address] Jan, [facility] [place] [facility] [address] [id number] [place] [address]- 9919 Jan, [facility] [place] [facility] [address] [id number] [place] [address] 57[address] Jan, [facility] [place] [facility] [address] [id number] [place] [address]- 8886 Jan, [facility] [place] [facility] [address] [id number] [place] [address]- 0190 Dec, [facility] [place] [facility] [address] [id number] [place] [address]- 8754 Dec, [facility] [place] [facility] [address] [id number] [place] [address]- 1189 Dec, [facility] [place] [facility] [address] [id number] [place] [address] 6[address] Dec, [facility] [address] [id number] [place] [address] 52[address] Nov, [facility] [place] [facility] [address] [id number] [place] [address] Nov, [facility] [place] [facility] [address] [id number] [place] [address]- 7249 Nov, [facility] [place] [facility] [address] [id number] [place] [address]- 9142 Nov, [facility] [place] [facility] [address] [id number] [place] [address] 4439 Oct, [facility] [place] [facility] [address] [id number] [place] [address]- 4868 Oct, [facility] [place] [facility] [address] [id number] [place] [address]- 0380 Sep, [facility] [place] [facility] [address] [id number] [place] [address] 5114 Sep, [facility] [place] [facility] [address] [id number] [place] [address]- 6938 Jul, [facility] [place] [facility] [address] [id number] [place] [address] 6326 Jul, [facility] [place] [facility] [address] [id number] [place] [address]- 9070 Jun, [facility] [place] [facility] [address] [id number] [place] [address]- 3519 Jun, [facility] [place] [facility] [address] [id number] [place] [address] 1823 Jun, [facility] [place] [facility] [address] [id number] [place] [address]- 5[address] May, [facility] [place] [facility] [address] [id number] [place] [address] 5714 May, [facility] [place] [facility] [address] [id number] [place] [address] 0860 May, [facility] [address] [id number] [place] [address] 1689 May, [facility] [address] [id number] [place] [address] 8334 May, [facility] [address] [id number] [place] [address]- 1827 April, [facility] [address] [id number] [place] [address] 4980 April, [facility] [address] [id number] [place] [address]- 5094 April, [facility] [address] [id number] [place] [address] 5909 April, [facility] [address] [id number] [place] [address]- 0192 April, [facility] [address] [id number] [place] [address]- 8166 April, [facility] [address] [id number] [place] [address]- 8533 Mar, [facility] [address] [id number] [place] [address]- 8611 Mar, [facility] [address] [id number] [place] [address]- 2539 Jan, [facility] [place] [facility] [address] [id number] [place] [address]- 7089 Jan, [facility] [place] [facility] [address] [id number] [place] [address]- 4909 Jan, [facility] [place] [facility] [address] [id number] [place] [address]- 7456 05 Jan, 2013 [facility] [place] [facility] [address] [id number] [place] [address]- 0250 13 Jan, 2012 [facility] [address] [id number] [place] [address]- 5416 12 Jan, 2012 [facility] [address] [id number] [place] [address] 2546 05 Jan, 2012 [facility] [address] [id number] [place] [address] 2546 04 Jan, 2012 [facility] [address] [id number] [place] [address] 2546 03 Jan, 2012 [facility] [address] [id number] [place] [address]- 3506 Jan, 2012 [facility] [address] [id number] [place] [address]- 8686 Jan, [facility] [address] [facility] [id number] [place] [address]- 1622 Dec, [facility] [address] [id number] [place] [address]- 3308 Nov, [facility] [address] [facility] [id number] [place] [address]- 9634 Nov, [facility] [address] [facility] [id number] [place] [address]- 4627 Nov, [facility] [address] [facility] [id number] [place] [address] 2546 Nov, [facility] [address] [id number] [place] [address] 2546 Nov, [facility] [address] [facility] [id number] [place] [address] 2542 Nov, [facility] [address] [facility] [id number] [place] [address]- 2545 Nov, [facility] [address] [facility] [id number] [place] [address]- 2544 Nov, [facility] [place] [facility] [address] [id number] [place] [address]- 2005 Nov, [facility] [place] [facility] [address] [id number] [place] [address]- 4376 Nov, [facility] [place] [facility] [address] [id number] [place] [address] Nov, [facility] [place] [facility] [address] [id number] [place] [address]- 9593 Nov, [facility] [place] [facility] [address] [id number] [place] [address]- 8387 Nov, [facility] [place] [facility] [address] [id number] [place] [address]- 1360 Oct, [facility] [place] [facility] [address] [id number] [place] [address]- 2722 Oct, [facility] [place] [facility] [address] [id number] [place] [address]- 8394 Oct, [facility] [place] [facility] [address] [id number] [place] [address]- 7330 Sep, [facility] [place] [facility] [address] [id number] [place] [address]- 5783 Sep, [facility] [place] [facility] [address] [facility] [id number] [place] [address]- 2891 Sep, [facility] [place] [facility] [address] [id number] [place] [address]- 5412 Sep, [facility] [place] [facility] [address] [id number] [place] [address]- 8282 27 Aug, 2012 [facility] [place] [facility] [address] [id number] [place] [address] 20 Aug, 2012 [facility] [place] [facility] [address] [id number] [place] [address]- 0050 Jul, [facility] [place] [facility] [address] [id number] [place] [address]- 4228 May, [facility] [address] [id number] [place] [address]- 9924 May, [facility] [place] [facility] [address] [id number] [place] [address]- 0703 May, [facility] [place] [facility] [address] [id number] [place] [address]- 0677 April, [facility] [place] [facility] [address] [id number] [place] [address]- 1692 Mar, [facility] [place] [facility] [address] [id number] [place] [address]- 4809 Mar, [facility] [place] [facility] [address] [id number] [place] [address]- 7483 Mar, [facility] [place] [facility] [address] [id number] [place] [address]- 9752 Jan, [facility] [place] [facility] [address] [id number] [place] [address]- 3418 Jan, [facility] [place] [facility] [address] [id number] [place] [address]- 4134 Jan, [facility] [place] [facility] [address] [id number] [place] [address]- 1523 Dec, [facility] [place] [facility] [address] [id number], [place] [address]- 5600 Dec, [facility] [place] [facility] [address] [id number] [address]- 2916 Dec, [facility] [place] [facility] [address] [id number] [place] [address]- 0784 Dec, [facility] [place] [facility] [address] [id number] [place] [address]- 2528 Nov, [facility] [place] [facility] [address] [id number] [place] [address]- 2346 Nov, [facility] [place] [facility] [address] [id number] [place] [address] 03 Nov, 2011 [facility] [address] [id number] [place] [address]- 4123 03 Oct, 2011 [facility] [place] [facility] [address] [id number] [place] [address]- 4966 31 Sep, 2011 [facility] [place] [facility] [address] [id number] [place] [address]- 4410 26 Sep, 2011 [facility] [place] [facility] [address] [id number] [place] [address] 2549 13 Sep, 2011 [facility] [address] [id number] [place] [address]- 9889 15 Nov, 2010 [facility] [place] [facility] [address] [id number] [place] [address]- 4180 23 Oct, 2010 [facility] [place] [facility] [address] [id number] [place] [address]- 7073 Oct, [facility] [place] [facility] [address] [id number] [place] [address]- 9206 18 Oct, 2010 [facility] [place] [facility] [address] [id number] [place] [address]- 5508 16 Oct, 2010 [facility] [place] [facility] [address] [facility] [id number] [place] [address]- 0739 11 Sep, 2010 [facility] [place] [facility] [address] [id number] [place] [address]- 1431 April, [facility] [place] [facility] [address] [id number] [place] [address]- 2543 29 Nov, 2009 [facility] [place] [facility] [address] [id number] [place] [address] 2543 24 Nov, 2009 [facility] [place] [facility] [address] [id number] [place] [address]- 2542 22 Nov, 2009 [facility] [place] [facility] [address] [id number] [place] [address]- 4341 Nov, [facility] [address] [facility] [id number], [place] [address]- 5874 Nov, [facility] [address] [facility] [id number], [place] [address]- 5954 Oct, [facility] [address] [facility] [id number], [place] [address]- 9921 Oct, [facility] [address] [id number] [address]- 9777 Sep, [facility] [address] [facility] [id number], [place] [address]- 4737 Jan, IMMUNIZATIONS No Known Immunizations SOCIAL HISTORY Never Assessed REASON FOR VISIT DC meds PLAN OF CARE VITAL SIGNS MEDICATIONS Unknown Medications RESULTS No Results PROCEDURES No Known procedures INSTRUCTIONS MEDICATIONS ADMINISTERED No Known Medications MEDICAL (GENERAL) HISTORY Type Description Date Medical History Hypertension Medical History Heart disease CABG X3 Stress test 07/2015 Medical History Gastric ulcer Medical History Hyperlipidemia Medical History Headache syndrome Medical History Psychiatric disorders-depression/racing thoughts Medical History Depression Medical History At [facility] 04/2016 Started on Eliquis Medical History Anemia 04/2016 postsurgical hip fx Surgical History right hip replacement w/ Dr. Bruce 2011 Surgical History triple bypass surgery 2003 Surgical History S/P left hip IM Nail (Intertrechanteric hip fx) 04/28/16 Hospitalization History surgeries Hospitalization History Hypertension Hospitalization History ER for a concussion 11/24/15 Hospitalization History Intertrechanteric hip fx 04/27/16 Hospitalization History [facility] (inpatient [facility] 2 times) Hx of 3 inpatient psych treatments in past in [place] oct 2016 [facility]
--- OUTSIDE RECORDS SUMMARY | 2018-08-20 12:58 | XMS REPORT ---
Author Author WOLF AGUIRRE [facility] Address [address] [place] [address] Care Team Providers Care Sorting Machine Attendant Name Role Phone WOLF AGUIRRE Unavailable PROBLEMS Type Condition ICD9-CM Code CIB54-QL Code Onset Dates Condition Status SNOMED Code Problem Sundowning F05 Active 691679817 Problem Constipation, unspecified constipation type K59.00 Active 16139773 Problem Reactive depression F32.9 Active 80362246 Problem Vascular dementia with behavior disturbance F01.51 Active 848479231342214 Problem Insomnia, unspecified type G47.00 Active 213006508 Problem Generalized anxiety disorder F41.1 Active 93458778 Problem Other chronic pain G89.29 Active 05560715 Problem Severe episode of recurrent major depressive disorder, without psychotic features F33.2 Active 20779869 Problem Slow transit constipation K59.01 Active 54390792 Problem 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 Active 525135860 Problem Obsessive thinking F42.8 Active 53146439 Problem Failure to thrive in adult R62.7 Active 303220574 Problem Dysthymic disorder F34.1 Active 43519514 Problem Hypertension I10 Active 23257411 Problem Mood disorder F39 Active 58968389 Problem Irritable bowel syndrome with diarrhea K58.0 Active 402479646 Problem Oropharyngeal dysphagia R13.12 Active 09064005 Problem 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 Active 22815224 Problem Other chronic pain G89.29 Active 14265885 Problem Primary insomnia F51.01 Active 5289463 Problem Poor appetite R63.0 Active 95595783 Problem 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 Active 635855319991141 Problem Iron deficiency anemia secondary to inadequate dietary iron intake D50.8 Active 219694044 Problem Coarse tremors G25.2 Active 21075687 Problem Gastroesophageal reflux disease without esophagitis K21.9 Active 604670986 Problem Essential hypertension I10 Active 06173916 ALLERGIES No Information ENCOUNTERS Encounter Location Date Diagnosis [facility] [address] [address] Jun, [facility] [id number] [place] [address] 18706- 0253 Jun, [facility] [address] [place] [id number] Jun, Left lower quadrant pain R10.32 and Left leg pain M79.605 [facility] [id number] [place] [address] 45056- 6084 Jun, [facility] [address] [place] [id number] Jun, Pain in left hip M25.552 ; Pain in right hip M25.551 and Primary insomnia F51.01 [facility] [id number] [place] [address] 89962- 3684 Jun, [facility] [address] [place] [id number] May, [facility] [address] [place] [address] 49963- 9779 May, [facility] [id number] [place] [address] 55631- 1999 May, [facility] [address] [id number] May, Mood disorder F39 [facility] [address] [place] [address] 24937- 6119 May, [facility] [address], [place] [address] April, [facility] [address] [place] [id number] April, Generalized anxiety disorder F41.1 ; Obsessive thinking F42.8 and Insomnia , unspecified type G47.00 [facility] [address], [place] [address] 65[address] April, [facility] [address], [place] [address] 7866 April, Rash of face R21 [facility] [id number] [place] [address] 12278- 7297 Mar, [facility] [address], [place] [address] 7604 Mar, [facility] [id number] [place] [address] 59319- 6407 Mar, [facility] [address] [place] [address] 69749- 5628 Jan, [facility] [id number] [place] [address] 75581- 8593 Jan, [facility] [address] [id number] Jan, Constipation, unspecified constipation type K59.00 and Other chronic pain G89.29 [facility] [address] [place] [address] 51043- 8861 Jan, [facility] [address] [place] [id number] Jan, Obsessive thinking F42.8 and Coarse tremors G25.2 [facility] [facility] [id number] [place] [id number] Jan, [facility] [id number] [place] [address] [id number] Jan, [facility] [address] [place] [id number] Jan, Generalized anxiety disorder F41.1 ; Obsessive thinking F42.8 ; Callus of foot L84 and 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 [facility] [address], [place] [address] 1086 Dec, Generalized anxiety disorder F41.1 and Severe episode of recurrent major depressive disorder, without psychotic features F33.2 [facility] [id number] [address] 5476 Nov, [facility] [address] [place] [address] 985678- 1060 Nov, [facility] [address] [place] [id number] Nov, Oropharyngeal dysphagia R13.12 ; Generalized anxiety disorder F41.1 and 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 [facility] [id number] [place] [address] 36013- 6218 Nov, [facility] [id number] [place] [address] [id number] Nov, [facility] [id number] [place] [address] 53376- 0932 Nov, [facility] [id number] [place] [address] 44114- 7065 Nov, [facility] [id number] [place] [address] 14577- 0662 Oct, Constipation, unspecified constipation type K59.00 and Mood disorder F39 [facility] [address] [place] [address] 99076- 6719 Oct, [facility] [id number] [address] Sep, [facility] [id number] [id number] Sep, [facility] [id number] [place] [address] [id number] Sep, [facility] [id number] [address] Sep, [facility] [address] [place] [id number] Sep, Generalized abdominal pain R10.84 [facility] [address], [place] [address] 2546 Sep, [facility] [id number] [address] Sep, Generalized anxiety disorder F41.1 and Primary insomnia F51.01 [facility] [address] [id number] Aug, [facility] [address] [address] Aug, Generalized anxiety disorder F41.1 [facility] [address] [place] [address] 06995- 2656 Jul, [facility] [address] [place] [id number] Jul, Obsessive thinking F42.8 [facility] [address] [place] [address] 01273- 4946 Jul, Generalized anxiety disorder F41.1 and Irritable bowel syndrome with diarrhea K58.0 [facility] [id number] [place] [address] [id number] Jul, Generalized anxiety disorder F41.1 [facility] [id number] [place] [id number] Jun, Generalized anxiety disorder F41.1 [facility] [address] [place] [address] [id number]- 1971 May, [facility] [address] [place] [id number] May, Generalized anxiety disorder F41.1 ; Irritable bowel syndrome with diarrhea K58.0 and Coarse tremors G25.2 [facility] [address], [place] [address] 4309 April, [facility] [address] [place] [address] 27532- 3055 April, [facility] [address] [address] 5916 April, [facility] [address] [address] 8580 Mar, [facility] [address] [place] [id number] Mar, Severe episode of recurrent major depressive disorder, without psychotic features F33.2 and Pain in left hip M25.552 [facility] [address] [place] [address] 21580- 2188 Mar, [facility] [id number] [place] [address] 58285- 9728 Mar, [facility] [id number] [place] [address] 11128- 9294 Mar, [facility] [id number] [place] [address] 08265- 3514 Mar, Pain in right hip M25.551 and Self-care deficit in patient living alone R46.89 [facility] [id number] [place] [address] 87207 -3612 Jan, Other chronic pain G89.29 ; Pain in left hip M25.552 and Slow transit constipation K59.01 [facility] [id number] [place] [address] 30155- 3772 Jan, [facility] [facility] [id number] [place] [address] 16647- 1584 Dec, Other depression F32.89 ; Constipation, unspecified constipation type K59.00 and Insomnia, unspecified type G47.00 [facility] [address] [place] [address] 79223- 1461 Nov, Reactive depression F32.9 ; Chronic idiopathic constipation K59.04 ; Generalized anxiety disorder F41.1 ; Coarse tremors G25.2 ; Gastroesophageal reflux disease without esophagitis K21.9 ; Dysthymic disorder F34.1 ; Vitamin deficiency, unspecified E56.9 and Primary insomnia F51.01 [facility] [address] [place] [address] 63143- 4668 Nov, [facility] [id number] [place] [address] 39330- 1227 Nov, [facility] [id number] [place] [address] 08213- 6236 Nov, [facility] [facility] [address] 87603- 7723 Nov, Reactive depression F32.9 ; Essential hypertension I10 ; Generalized anxiety disorder F41.1 ; 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 ; Pain in right hip M25.551 ; Other chronic pain G89.29 ; Chronic idiopathic constipation K59.04 ; Primary insomnia F51.01 ; Coarse tremors G25.2 ; Gastroesophageal reflux disease without esophagitis K21.9 ; Iron deficiency anemia secondary to inadequate dietary iron intake D50.8 and Vitamin deficiency, unspecified E56.9 [facility] [id number] [place] [address] 44365- 4295 Oct, [facility] [address] 13028- 0455 Oct, [facility] [facility] [id number] [place] [address] 13063- 8938 Oct, [facility] [address] 42565- 9472 16 Oct, 2016 Generalized anxiety disorder F41.1 ; Poor appetite R63.0 ; Dehydration E86.0 and Failure to thrive in adult R62.7 [facility] [id number] [place] [address] 92429- 3095 07 Oct, 2016 Generalized anxiety disorder F41.1 and Failure to thrive in adult R62.7 [facility] [facility] [id number] [place] [address] 11464- 1549 Oct, [facility] [facility] [address] 39127- 7271 Oct, [facility] [id number] [place] [address] 01766 -5306 Sep, Vaginal discharge N89.8 and Acute cystitis with hematuria N30.01 [facility] [address], [place] [address]- 6222 Sep, [facility] [id number] [place] [address] 78594- 3600 Sep, [facility] [id number] [place] [address] 82406- 8299 Sep, Dysthymic disorder F34.1 ; Acute vaginitis N76.0 ; Dysuria R30.0 and Vaginal yeast infection B37.3 [place] [id number] [place] [address] 73297- 1976 Aug, [place] [id number] [place] [address] 60161- 4857 Aug, [facility] [id number] [place] [address] 18316 -6157 Aug, Foul smelling urine R82.90 ; Rapid heart rate R00.0 and Flatulence R14.3 [place] [id number] [place] [address] 61890- 1050 Aug, [place] [id number] [place] [address] 72150- 8979 Jul, Constipation, unspecified constipation type K59.00 ; Weak R53.1 ; Poor appetite R63.0 ; Coronary artery disease involving havasupai heart without angina pectoris, unspecified vessel or lesion type I25.10 ; Fatigue, unspecified type R53.83 ; Urinary incontinence, unspecified type R32 and Insomnia, unspecified type G47.00 [facility] [id number] [place] [address] 11515- 6774 Jul, [facility] [id number] [place] [address] 66991- 5620 Jun, Dysuria R30.0 [facility] [id number] [place] [address] 60851- 0769 Jun, [facility] [address] [place] [address] 14767- 5159 Jun, Urinary tract infection, site not specified N39.0 ; Acute vaginitis N76.0 and Diarrhea, unspecified type R19.7 [facility] [address], [place] [address]- 0622 May, [facility] [id number] [place] [address] 27230- 2217 April, [facility] [id number] [place] [address] [id number] April, Encounter for dental examination Z01.20 [facility] [id number] [place] [address] 58079- 4293 April, [facility] [id number] [place] [address] 50756- 5659 April, Tremor R25.1 and Episodic tension-type headache, not intractable G44.219 [facility] [id number] [place] [address] 68490- 6035 Mar, [facility] [id number] [place] [address] 70891- 1593 Jan, Mood disorder F39 [facility] [address] [place] [address] 50966 -0338 Jan, [facility] [id number] [place] [address] 04468- 0559 Jan, [facility] [address] [place] [address] 30792- 4411 Jan, [facility] [id number] [place] [address] 30657- 4821 Jan, [facility] [address], [place] [address]- 4646 Jan, [facility] [id number] [place] [address] 88349- 5419 Jan, [facility] [address] [place] [address] 61291 -0243 Dec, Acute diarrhea R19.7 [facility] [id number] [place] [address] 45437- 4669 Dec, [facility] [id number] [place] [address] 75550- 0459 Dec, [facility] [id number] [place] [address] 72695- 7762 Dec, [facility] [id number] [place] [address] 16958 -6552 Dec, N&V (nausea and vomiting) R11.2 [facility] [id number] [place] [address] 88916- 5137 Dec, Generalized anxiety disorder F41.1 [facility] [address] 42398- 5854 Dec, Generalized anxiety disorder F41.1 [facility] [id number] [place] [address] 57700- 6928 Nov, Post concussion syndrome F07.81 [facility] [id number] [place] [address] 89784- 5504 Nov, Generalized anxiety disorder F41.1 [facility] [id number] [place] [address] 58288- 4884 Nov, [facility] [id number] [place] [address] 51367- 5921 Nov, Generalized anxiety disorder F41.1 [facility] [id number] [place] [address] [id number] Oct, Dental caries K02.9 [facility] [id number] [place] [address] 43168- 7720 Oct, [facility] [address] [place] [id number] Oct, Dental examination Z01.20 [facility] [address] [place] [address] [id number] 10 Oct, 2015 Encounter for dental examination Z01.20 [facility] [id number] [place] [address] 59868- 9222 09 Oct, 2015 CAD (coronary artery disease) I25.10 [facility] [address] 29999- 7607 Sep, Generalized anxiety disorder F41.1 [facility] [id number] [place] [address] 95257- 2832 Sep, [facility] [id number] [place] [address] 94424- 1384 Sep, Rash and other nonspecific skin eruption R21 and Yeast vaginitis B37.3 [facility] [id number] [place] [address] 04859- 1051 Sep, Generalized anxiety disorder F41.1 [facility] [id number] [place] [address] 01469- 2877 Aug, Insect bites 919.4 and Hemorrhoids 455.6 [facility] [id number] [place] [address] 22196- 5870 Aug, Generalized anxiety disorder 300.02 [facility] [id number] [place] [address] 18614- 1824 08 Aug, 2015 [facility] [id number] [place] [address] 00675- 8306 Aug, [facility] [address] 54188- 2631 Aug, Generalized anxiety disorder 300.02 ; No condition on [place] II V71.09 ; Heart problem 429.9 and Hypertension 401.9 [facility] [id number] [place] [address] 21164- 4843 Aug, [place] [address] [facility] [id number] [address]- 8696 Jul, [facility] [address], [place] [address]- 0634 Jul, [facility] [address], [place] [address]- 6590 Jul, [facility] [address], [place] [address]- 8901 Jul, [facility] [id number] [address]- 0011 Jul, Rash 782.1 [facility] [address], [place] [address]- 2046 Jul, UTI (urinary tract infection) 599.0 [facility] [address], [place] [address]- 0843 Jul, [facility] [address], [place] [address]- 5352 Jun, Dysthymia 300.4 and Anxiety 300.00 [facility] [address], [place] [address]- 6843 Jun, 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 [facility] [id number] [address]- 2447 May, [facility] [id number], [place] [address]- 0516 May, [facility] [id number] [address]- 4863 May, Unspecified breast screening V76.10 [facility] [address] [id number] [id number] May, Dental examination V72.2 [facility] [id number], [place] [address]- 3498 April, [facility] [address] [place] [address] 2546 April, [facility] [address] [id number] [id number] April, Dental examination V72.2 [facility] [place] [facility] [address] [id number] [place] [id number] April, Dental examination V72.2 [facility] [address] [id number] [place] [address]- 7616 14 Mar, 2015 [facility] [address] [id number] [place] [address] 2549 Mar, [facility] [address] [id number] [place] [address]- 5726 25 Jan, 2015 [facility] [address] [id number] [place] [address]- 3311 25 Jan, 2015 [facility] [address] [id number] [place] [address]- 1637 18 Jan, 2015 [facility] [address] [id number] [place]- 8337 18 Jan, 2015 [facility] [address] [id number]- 7730 16 Jan, 2015 [facility] [place] [facility] [address] [id number] [place]- 1848 16 Jan, 2015 [facility] [place] [facility] [address] [id number]- 2278 13 Jan, 2015 [facility] [place] [facility] [address] [id number] [place] [address]- 7325 13 Jan, 2015 [facility] [place] [facility] [address] [id number] [place] [address]- 2434 11 Jan, 2015 [facility] [place] [facility] [address] [id number], [place] [address]- 4456 11 Jan, 2015 [facility] [place] [facility] [address] [id number][place] [address]- 5909 Jan, [facility] [place] [facility] [address] [id number] [place] [address] Jan, [facility] [place] [facility] [address] [id number] [place] [address] Jan, [facility] [place] [facility] [address] [facility] [id number] [place] [address] Jan, [facility] [place] [facility] [address] [id number] [place] [address] Jan, 2014 [facility] [place] [facility] [address] [id number] [place] [address] Jan, [facility] [place] [facility] [address] [facility] [id number] [place] [address] Jan, [facility] [place] [facility] [address] [facility] [id number] [place] [address] Jan, [facility] [place] [facility] [address] [facility] [id number] [place] [address] Jan, [facility] [place] [facility] [address] [facility] [id number] [place] [address] Jan, [facility] [place] [facility] [address] [facility] [id number] [place] [address] Jan, [facility] [place] [facility] [address] [facility] [id number] [place] [address] Jan, [facility] [place] [facility] [address] [facility] [id number], [place] [address] Dec, [facility] [place] [facility] [address] [id number] [place] [address] Dec, [facility] [place] [facility] [address] [facility] [id number] [place] [address] Dec, [facility] [place] [facility] [address] [facility] [id number], [place] [address] Dec, [facility] [place] [facility] [address] [id number] [place] [address] Nov, [facility] [place] [facility] [address] [id number] [place] [address] Nov, [facility] [place] [facility] [address] [id number] [place] [address]- [address] Nov, [facility] [place] [facility] [address] [id number] [place] [address] Nov, [facility] [place] [facility] [address] [id number] [place] [address] Nov, [facility] [place] [facility] [address] [id number] [place] [address] Nov, [facility] [place] [facility] [address] [id number] [place] [address] Nov, [facility] [place] [facility] [address] [id number] [place] [address]- [address] Oct, [facility] [place] [facility] [address] [id number] [place] [address] Oct, [facility] [place] [facility] [address] [id number] [place] [address] Oct, [facility] [place] [facility] [address] [id number] [place] [address] Oct, [facility] [place] [facility] [address] [id number] [place] [address] Oct, [facility] [place] [facility] [address] [id number] [place] [address] Oct, [facility] [place] [facility] [address] [id number] [place] [address] 27[address] Oct, [facility] [place] [facility] [address] [id number] [place] [address] 9[address] Oct, [facility] [place] [facility] [address] [id number] [place] [address] 1173 Oct, [facility] [place] [facility] [address] [id number] [place] [address]25 Oct, [facility] [place] [facility] [address] [id number] [place] [address] 6137 Oct, [facility] [place] [facility] [address] [id number] [place] [address] 8763 Oct, [facility] [place] [facility] [address] [id number] [place] [address] 5834 Sep, [facility] [place] [facility] [address] [id number] [place] [address] Sep, [facility] [place] [facility] [address] [id number] [place] [address] Sep, [facility] [place] [facility] [address] [id number] [place] [address] 9908 Sep, [facility] [place] [facility] [address] [id number] [place] [address] 2489 Jul, [facility] [place] [facility] [address] [id number] [place] [address]- 0072 Jul, [facility] [place] [facility] [address] [id number] [place] [address]- 4765 Jul, [facility] [place] [facility] [address] [id number] [place] [address]- 2851 Jul, [facility] [place] [facility] [address] [id number] [place] [address]- 1723 Jun, [facility] [place] [facility] [address] [id number] [place] [address]- 7023 Jun, [facility] [place] [facility] [address] [id number] [place] [address]- 2126 Jun, [facility] [place] [facility] [address] [id number] [place] [address]- 9077 Jun, [facility] [place] [facility] [address] [id number] [place] [address] 4560 May, [facility] [address] [id number] [place] [address] 8005 May, [facility] [address] [id number] [place] [address]- 9840 April, [facility] [address] [id number] [place] [address]- 9336 April, [facility] [address] [id number] [place] [address] 6859 April, [facility] [address] [id number] [place] [address]- 3756 April, [facility] [address] [id number] [place] [address]- 3607 April, [facility] [address] [id number] [place] [address]- 8630 April, [facility] [address] [id number] [place] [address]- 3934 April, [facility] [address] [id number] [place] [address]- 8360 April, [facility] [address] [id number] [place] [address]- 7630 April, [facility] [address] [id number] [place] [address]- 9368 Mar, [facility] [address] [id number] [place] [address]- 6457 Mar, [facility] [place] [facility] [address] [id number] [place] [address]- 6[address] Mar, [facility] [place] [facility] [address] [id number] [place] [address]- 4905 Mar, [facility] [address] [id number] [place] [address]- 2913 Jan, [facility] [place] [facility] [address] [id number] [place] [address]- 1098 Jan, [facility] [place] [facility] [address] [id number] [place] [address]- 6835 Jan, [facility] [place] [facility] [address] [id number] [place] [address]- 9655 Jan, [facility] [place] [facility] [address] [id number] [place] [address]- 0525 Jan, [facility] [place] [facility] [address] [id number] [place] [address]- 0515 Jan, [facility] [place] [facility] [address] [id number] [place] [address]- 2571 Jan, [facility] [place] [facility] [address] [id number] [place] [address]- 6133 Jan, [facility] [place] [facility] [address] [id number] [place] [address]- 9265 Jan, [facility] [place] [facility] [address] [id number] [place] [address]- 5796 Jan, [facility] [place] [facility] [address] [id number] [place] [address]- 9422 Jan, [facility] [place] [facility] [address] [id number] [place] [address]- 4165 Jan, [facility] [place] [facility] [address] [id number] [place] [address]- 0551 Dec, [facility] [place] [facility] [address] [id number] [place] [address]- 1515 Dec, [facility] [place] [facility] [address] [id number] [place] [address]- 7741 Dec, [facility] [place] [facility] [address] [id number] [place] [address]- 6301 Dec, [facility] [place] [facility] [address] [id number] [place] [address]- 1811 Nov, [facility] [address] [id number] [place] [address]- 0871 Nov, [facility] [place] [facility] [address] [id number] [place] [address]- 9047 Nov, [facility] [place] [facility] [address] [id number] [place] [address]- 6349 Nov, [facility] [place] [facility] [address] [id number] [place] [address]- 7177 Oct, [facility] [place] [facility] [address] [id number] [place] [address]- 5857 Oct, [facility] [place] [facility] [address] [id number] [place] [address]- 7102 Sep, [facility] [place] [facility] [address] [id number] [place] [address]- 0723 Sep, [facility] [place] [facility] [address] [id number] [place] [address]- 9673 Jul, [facility] [place] [facility] [address] [id number] [place] [address]- 0055 Jul, [facility] [place] [facility] [address] [facility] [id number] [place] [address]- 9120 Jun, [facility] [place] [facility] [address] [id number] [place] [address]- 4828 Jun, [facility] [place] [facility] [address] [id number] [place] [address]- 0055 Jun, [facility] [place] [facility] [address] [id number] [place] [address]- 6955 May, [facility] [place] [facility] [address] [id number] [place] [address]- 7124 May, [facility] [place] [facility] [address] [id number] [place] [address]- 9860 May, [facility] [place] [facility] [address] [id number] [place] [address]- 7145 May, [facility] [address] [id number] [place] [address]- 0361 May, [facility] [address] [id number] [place] [address]- 7753 April, [facility] [address] [id number] [place] [address]- 0565 April, [facility] [address] [id number] [place] [address]- 6095 April, [facility] [address] [id number] [place] [address]- 0110 April, [facility] [address] [id number] [place] [address]- 7468 April, [facility] [address] [id number] [place] [address]- 4168 April, [facility] [address] [id number] [place] [address]- 8336 Mar, [facility] [address] [id number] [place] [address]- 7037 Mar, [facility] [address] [id number] [place] [address]- 5556 Jan, [facility] [address] [id number] [place] [address]- 3165 Jan, [facility] [address] [id number] [place] [address]- 5384 Jan, [facility] [place] [facility] [address] [id number] [place] [address]- 9781 Jan, [facility] [place] [facility] [address] [id number] [place] [address]- 7252 Jan, [facility] [place] [facility] [address] [id number] [place] [address]- 3468 Jan, 2012 [facility] [address] [id number] [place] [address]- 7136 05 Jan, 2012 [facility] [address] [id number] [place] [address] 2546 04 Jan, 2012 [facility] [address] [id number] [place] [address]- 8656 Jan, 2012 [facility] [address] [id number] [place] [address]- 3032 Jan, 2012 [facility] [address] [id number] [place] [address]- 4452 Jan, [facility] [address] [id number] [place] [address]- 6061 Dec, [facility] [address] [id number] [place] [address]- 2837 Nov, [facility] [address] [id number] [place] [address]- 2548 Nov, [facility] [address] [id number] [place] [address]- 4339 Nov, [facility] [address] [facility] [id number] [place] [address]- 4233 Nov, [facility] [address] [id number] [place] [address] 2543 Nov, [facility] [address] [id number] [place] [address] 2546 Nov, [facility] [address] [id number] [place] [address] 254 Nov, [facility] [address] [id number] [place] [address]- 2543 Nov, [facility] [address] [id number] [place] [address]- 2547 Nov, [facility] [place] [facility] [address] [id number] [place] [address]- 4266 18 Nov, 2012 [facility] [place] [facility] [address] [id number] [place] [address]67 18 Nov, 2012 [facility] [place] [facility] [address] [id number] [place] [address] Nov, [facility] [place] [facility] [address] [id number] [place] [address]- 7196 Nov, [facility] [place] [facility] [address] [id number] [place] [address]- 1862 17 Oct, 2012 [facility] [place] [facility] [address] [id number] [place] [address]- 4941 Oct, [facility] [place] [facility] [address] [id number] [place] [address] Oct, [facility] [place] [facility] [address] [id number] [place] [address]- 4046 Sep, [facility] [place] [facility] [address] [id number] [place] [address]- 8944 Sep, [facility] [place] [facility] [address] [id number] [place] [address]- 6423 10 Sep, 2012 [facility] [place] [facility] [address] [facility] [id number] [place] [address]- 7415 10 Sep, 2012 [facility] [place] [facility] [address] [id number] [place] [address]- 4657 27 Aug, 2012 [facility] [place] [facility] [address] [id number] [place] [address]- 1689 20 Aug, 2012 [facility] [place] [facility] [address] [id number] [place] [address]- 8356 24 Jul, 2012 [facility] [place] [facility] [address] [id number] [place] [address] 2546 27 May, 2012 [facility] [place] [facility] [address] [id number] [place] [address]- 8312 14 May, 2012 [facility] [address] [id number] [place] [address]- 8332 14 May, 2012 [facility] [place] [facility] [address] [id number] [place] [address]- 5764 April, [facility] [place] [facility] [address] [id number] [place] [address]- 0935 Mar, [facility] [place] [facility] [address] [id number] [place] [address]- 6842 Mar, [facility] [place] [facility] [address] [id number] [place] [address]- 4193 Mar, [facility] [place] [facility] [address] [id number] [place] [address]- 8441 Jan, [facility] [place] [facility] [address] [id number] [place] [address]- 9131 Jan, [facility] [place] [facility] [address] [id number] [place] [address]- 1564 Jan, [facility] [place] [facility] [address] [id number] [place] [address]- 2731 Dec, [facility] [place] [facility] [address] [id number] [place] [address]- 3266 Dec, [facility] [place] [facility] [address] [id number], [place] [address]- 9584 Dec, [facility] [place] [facility] [address] [id number], [place] [address]- 3884 Dec, [facility] [place] [facility] [address] [id number] [place] [address]- 5393 Nov, [facility] [place] [facility] [address] [id number] [place] [address]- 7331 Nov, [facility] [place] [facility] [address] [id number] [place] [address] 2546 Nov, [facility] [place] [facility] [address] [id number] [place] [address]- 9860 03 Oct, 2011 [facility] [address] [id number] [place] [address]- 4916 31 Sep, 2011 [facility] [place] [facility] [address] [id number] [place] [address] 2546 26 Sep, 2011 [facility] [place] [facility] [address] [id number] [place] [address]- 1496 13 Sep, 2011 [facility] [place] [facility] [address] [id number] [place] [address] 2543 15 Nov, 2010 [facility] [place] [facility] [address] [id number] [place] [address]- 1971 23 Oct, 2010 [facility] [place] [facility] [address] [id number] [place] [address]- 1199 Oct, [facility] [place] [facility] [address] [id number] [place] [address]- 2441 18 Oct, 2010 [facility] [place] [facility] [address] [id number] [place] [address]- 7437 16 Oct, 2010 [facility] [place] [facility] [address] [id number] [place] [address]- 2685 Sep, [facility] [place] [facility] [address] [id number] [place] [address]- 4304 April, [facility] [place] [facility] [address] [id number] [place] [address] 2547 29 Nov, 2009 [facility] [place] [facility] [address] [id number] [place] [address]- 2547 24 Nov, 2009 [facility] [place] [facility] [address] [id number] [place] [address] 2540 22 Nov, 2009 [facility] [place] [facility] [address] [id number] [place] [address]- 2542 10 Nov, 2009 [facility] [place] [facility] [address] [id number] [place] [address] 2546 Nov, [facility] [address] [facility] [id number] [place] [address]- 2822 Oct, [facility] [address] [facility] [id number], [place] [address]- 0666 Oct, [facility] [address] [facility] [id number], [place] [address]- 4720 Sep, [facility] [address] [facility] [id number], [place] [address]- 0369 Jan, IMMUNIZATIONS No Known Immunizations SOCIAL HISTORY [...] History Intertrechanteric hip fx 04/27/16 Hospitalization History [facility] (inpatient [facility] 2 times) Hx of 3 inpatient psych treatments in past in [place] oct 2016 [facility]
--- OUTSIDE RECORDS SUMMARY | 2018-08-20 12:59 | XMS REPORT ---
Author Author WOLF AGUIRRE [facility] Address [address] [place] [address] Care Team Providers Care Inspector Quality Assurance Name Role Phone WOLF AGUIRRE Unavailable PROBLEMS Type Condition ICD9-CM Code [id number] Code Onset Dates Condition Status SNOMED Code Problem Sundowning F05 Active 386121055 Problem Constipation, unspecified constipation type K59.00 Active 12568286 Problem Reactive depression F32.9 Active 87177017 Problem Vascular dementia with behavior disturbance F01.51 Active 591470104900680 Problem Insomnia, unspecified type G47.00 Active 964371963 Problem Generalized anxiety disorder F41.1 Active 92827774 Problem Other chronic pain G89.29 Active 70626460 Problem Severe episode of recurrent major depressive disorder, without psychotic features F33.2 Active 64223651 Problem Slow transit constipation K59.01 Active 63454115 Problem 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 Active 081164715 Problem Obsessive thinking F42.8 Active 47623274 Problem Failure to thrive in adult R62.7 Active 047857934 Problem Dysthymic disorder F34.1 Active 99299843 Problem Hypertension I10 Active 83903353 Problem Mood disorder F39 Active 05827672 Problem Irritable bowel syndrome with diarrhea K58.0 Active 017076457 Problem Oropharyngeal dysphagia R13.12 Active 26591877 Problem 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 Active 79429965 Problem Other chronic pain G89.29 Active 19279230 Problem Primary insomnia F51.01 Active 9586487 Problem Poor appetite R63.0 Active 07657170 Problem 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 Active 974428147719820 Problem Iron deficiency anemia secondary to inadequate dietary iron intake D50.8 Active 370140305 Problem Coarse tremors G25.2 Active 45250366 Problem Gastroesophageal reflux disease without esophagitis K21.9 Active 469322104 Problem Essential hypertension I10 Active 85915268 ALLERGIES No Information ENCOUNTERS Encounter Location Date Diagnosis [facility] [address], [place] [address] Jun, [facility] [id number] [place] [address] 62883- 2271 Jun, [facility] [address] [place] [id number] Jun, Left lower quadrant pain R10.32 and Left leg pain M79.605 [facility] [id number] [place] [address] 35091- 7504 Jun, [facility] [address] [place] [id number] Jun, Pain in left hip M25.552 ; Pain in right hip M25.551 and Primary insomnia F51.01 [place] [facility] [id number] [place] [address] 52864- 7120 Jun, [facility] [address] [place] [id number] May, [facility] [id number] [place] [address] 81570- 5376 May, [facility] [id number] [place] [address] 03685- 2023 May, [facility] [address] [id number] May, Mood disorder F39 [place] [id number] [place] [address] 71770- 2973 May, [facility] [address], [place] [address] 3148 April, [facility] [address] [place] [id number] April, Generalized anxiety disorder F41.1 ; Obsessive thinking F42.8 and Insomnia , unspecified type G47.00 [facility] [address], [place] [address] 38[address] April, [facility] [address], [place] [address] 5580 April, Rash of face R21 [facility] [facility] [id number] [place] [address] 46939- 9925 Mar, [facility] [address], [place] [address] 6380 Mar, [facility] [id number] [place] [address] 03875- 6080 Mar, [facility] [id number] [place] [address] 79815- 8441 Jan, [facility] [id number] [place] [address] 75919- 5345 Jan, [facility] [address] [id number] Jan, Constipation, unspecified constipation type K59.00 and Other chronic pain G89.29 [facility] [id number] [place] [address] 84992- 9650 Jan, [facility] [address] [place] [id number] Jan, Obsessive thinking F42.8 and Coarse tremors G25.2 [facility] [facility] [id number] [place] [address] [id number] Jan, [facility] [id number] [place] [address] [id number] Jan, [facility] [address] [place] [id number] Jan, Generalized anxiety disorder F41.1 ; Obsessive thinking F42.8 ; Callus of foot L84 and 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 [facility] [address], [place] [address] 3704 Dec, Generalized anxiety disorder F41.1 and Severe episode of recurrent major depressive disorder, without psychotic features F33.2 [facility] [id number] [address] 9566 Nov, [facility] [id number] [place] [address] 450510- 5446 Nov, [facility] [address] [place] [id number] Nov, Oropharyngeal dysphagia R13.12 ; Generalized anxiety disorder F41.1 and 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 [facility] [id number] [place] [address] 06374- 4187 Nov, [facility] [id number] [place] [address] [id number] Nov, [facility] [id number] [place] [address] 31959- 4111 Nov, [facility] [id number] [place] [address] 79735- 1605 Nov, [facility] [id number] [place] [address] 89927- 3461 Oct, Constipation, unspecified constipation type K59.00 and Mood disorder F39 [facility] [id number] [place] [address] 05038- 5645 Oct, [facility] [id number] [id number] Sep, [facility] [id number] [id number] Sep, [facility] [id number] [place] [address] [id number] Sep, [facility] [id number] [id number] Sep, [facility] [address] [place] [id number] Sep, Generalized abdominal pain R10.84 [facility] [address], [place] [address] 2546 Sep, [facility] [id number] [id number] Sep, Generalized anxiety disorder F41.1 and Primary insomnia F51.01 [facility] [id number] [id number] Aug, [facility] [id number] [id number] Aug, Generalized anxiety disorder F41.1 [facility] [address] [place] [address] 60748- 2356 Jul, [facility] [address] [place] [id number] Jul, Obsessive thinking F42.8 [facility] [address] [place] [address] 69245- 3696 Jul, Generalized anxiety disorder F41.1 and Irritable bowel syndrome with diarrhea K58.0 [facility] [id number] [place] [address] [id number] Jul, Generalized anxiety disorder F41.1 [facility] [id number] [place] [address] [id number] Jun, Generalized anxiety disorder F41.1 [facility] [address] [place] [address] [id number]- 3114 May, [facility] [address] [place] [id number] May, Generalized anxiety disorder F41.1 ; Irritable bowel syndrome with diarrhea K58.0 and Coarse tremors G25.2 [facility] [address], [place] [address] 0368 April, [facility] [address] [place] [address] 72183- 2662 April, [facility] [address] [address] 5129 April, [facility] [address] [address] 4744 Mar, [facility] [address] [place] [id number] Mar, Severe episode of recurrent major depressive disorder, without psychotic features F33.2 and Pain in left hip M25.552 [facility] [address] [place] [address] 63312- 4856 Mar, [facility] [id number] [place] [address] 96283- 9476 Mar, [facility] [id number] [place] [address] 33237- 4986 Mar, [facility] [place] [id number] [place] [address] 27881- 7481 Mar, Pain in right hip M25.551 and Self-care deficit in patient living alone R46.[address] [facility] [id number] [place] [address] 21748 -0602 Jan, Other chronic pain G89.29 ; Pain in left hip M25.552 and Slow transit constipation K59.01 [facility] [id number] [place] [address] 81261- 9221 Jan, [facility] [id number] [place] [address] 41960- 8182 Dec, Other depression F32.89 ; Constipation, unspecified constipation type K59.00 and Insomnia, unspecified type G47.00 [facility] [address] [place] [address] 89986- 0117 Nov, Reactive depression F32.9 ; Chronic idiopathic constipation K59.04 ; Generalized anxiety disorder F41.1 ; Coarse tremors G25.2 ; Gastroesophageal reflux disease without esophagitis K21.9 ; Dysthymic disorder F34.1 ; Vitamin deficiency, unspecified E56.9 and Primary insomnia F51.01 [facility] [address] [place] [address] 61575- 7791 Nov, [facility] [id number] [place] [address] 90417- 7981 Nov, [facility] [id number] [place] [address] 34809- 4313 Nov, [place] [address] 82067- 1937 Nov, Reactive depression F32.9 ; Essential hypertension I10 ; Generalized anxiety disorder F41.1 ; 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 ; Pain in right hip M25.551 ; Other chronic pain G89.29 ; Chronic idiopathic constipation K59.04 ; Primary insomnia F51.01 ; Coarse tremors G25.2 ; Gastroesophageal reflux disease without esophagitis K21.9 ; Iron deficiency anemia secondary to inadequate dietary iron intake D50.8 and Vitamin deficiency, unspecified E56.9 [facility] [id number] [place] [address] 81656- 5961 Oct, [facility] [facility] [address] 25007- 4557 Oct, [facility] [id number] [place] [address] 14795- 2073 Oct, [facility] [address] 83507- 8530 16 Oct, 2016 Generalized anxiety disorder F41.1 ; Poor appetite R63.0 ; Dehydration E86.0 and Failure to thrive in adult R62.7 [facility] [facility] [id number] [place] [address] 68572- 8612 07 Oct, 2016 Generalized anxiety disorder F41.1 and Failure to thrive in adult R62.7 [facility] [facility] [id number] [place] [address] 75106- 6254 Oct, [place] [address] 42179- 3077 Oct, [facility] [id number] [place] [address] 19908 -9617 Sep, Vaginal discharge N89.8 and Acute cystitis with hematuria N30.01 [facility] [address], [place] [address]- 8525 Sep, [facility] [id number] [place] [address] 05761- 8642 Sep, [facility] [id number] [place] [address] 93508- 1834 Sep, Dysthymic disorder F34.1 ; Acute vaginitis N76.0 ; Dysuria R30.0 and Vaginal yeast infection B37.3 [place] [id number] [place] [address] 28238- 0931 Aug, [place] [id number] [place] [address] 57120- 0589 Aug, [facility] [id number] [place] [address] 38951 -9986 Aug, Foul smelling urine R82.90 ; Rapid heart rate R00.0 and Flatulence R14.3 [place] [id number] [place] [address] 40416- 0575 Aug, [facility] [id number] [place] [address] 06185- 5588 Jul, Constipation, unspecified constipation type K59.00 ; Weak R53.1 ; Poor appetite R63.0 ; Coronary artery disease involving chemehuevi heart without angina pectoris, unspecified vessel or lesion type I25.10 ; Fatigue, unspecified type R53.83 ; Urinary incontinence, unspecified type R32 and Insomnia, unspecified type G47.00 [place] [id number] [place] [address] 77464- 8920 Jul, [place] [id number] [place] [address] 65935- 6652 Jun, Dysuria R30.0 [facility] [id number] [place] [address] 82179- 1103 Jun, [facility] [address] [place] [address] 06833- 5012 Jun, Urinary tract infection, site not specified N39.0 ; Acute vaginitis N76.0 and Diarrhea, unspecified type R19.7 [facility] [address], [place] [address]- 0557 May, [facility] [id number] [place] [address] 49092- 8396 April, [facility] [id number] [place] [address] [id number] April, Encounter for dental examination Z01.20 [facility] [id number] [place] [address] 99631- 1410 April, [facility] [id number] [place] [address] 55925- 5236 April, Tremor R25.1 and Episodic tension-type headache, not intractable G44.219 [facility] [id number] [place] [address] 29979- 6865 Mar, [facility] [id number] [place] [address] 43036- 4203 Jan, Mood disorder F[address] [facility] [address] [place] [address] 76827 -1953 Jan, [facility] [id number] [place] [address] 09995- 6891 Jan, [facility] [address] [place] [address] 57173- 4976 Jan, [facility] [id number] [place] [address] 88683- 3050 Jan, [facility] [address], [place] [address]- 3393 Jan, [facility] [id number] [place] [address] 42895- 0287 Jan, [facility] [address] [place] [address] 30581 -0025 Dec, Acute diarrhea R19.7 [facility] [id number] [place] [address] 97540- 6939 Dec, [facility] [id number] [place] [address] 02894- 4281 Dec, [facility] [id number] [place] [address] 00965- 8494 Dec, [facility] [id number] [place] [address] 87252 -7117 Dec, N&V (nausea and vomiting) R11.2 [facility] [id number] [place] [address] 40838- 3098 Dec, Generalized anxiety disorder F41.1 [facility] [address] 42886- 0676 Dec, Generalized anxiety disorder F41.1 [facility] [id number] [place] [address] 33100- 3073 Nov, Post concussion syndrome F07.81 [facility] [id number] [place] [address] 18234- 3449 Nov, Generalized anxiety disorder F41.1 [facility] [id number] [place] [address] 81246- 0511 Nov, [facility] [id number] [place] [address] 17085- 9502 Nov, Generalized anxiety disorder F41.1 [facility] [id number] [place] [address] [id number] Oct, Dental caries K02.9 [facility] [id number] [place] [address] 20188- 6630 Oct, [facility] [address] [place] [id number] Oct, Dental examination Z01.20 [facility] [address] [place] [address] [id number] 10 Oct, 2015 Encounter for dental examination Z01.20 [facility] [id number] [place] [address] 50187- 9662 09 Oct, 2015 CAD (coronary artery disease) I25.10 [facility] [address] 34927- 8838 Sep, Generalized anxiety disorder F41.1 [facility] [id number] [place] [address] 80215- 8755 Sep, [facility] [id number] [place] [address] 14463- 4068 Sep, Rash and other nonspecific skin eruption R21 and Yeast vaginitis B37.3 [facility] [id number] [place] [address] 92801- 2131 Sep, Generalized anxiety disorder F41.1 [facility] [id number] [place] [address] 91424- 2027 Aug, Insect bites 919.4 and Hemorrhoids 455.6 [facility] [id number] [place] [address] 48287- 4724 Aug, Generalized anxiety disorder 300.02 [facility] [id number] [place] [address] 68722- 9776 08 Aug, 2015 [facility] [id number] [place] [address] 13698- 5592 Aug, [facility] [address] 69213- 8238 Aug, Generalized anxiety disorder 300.02 ; No condition on [place] II V71.09 ; Heart problem 429.9 and Hypertension 401.9 [facility] [id number] [place] [address] 73617- 5688 Aug, [place] [address] [facility] [id number] [address]- 1115 Jul, [facility] [address], [place] [address]- 2286 Jul, [facility] [address], [place] [address]- 9777 Jul, [facility] [address], [place] [address]- 9609 Jul, [facility] [id number], [place] [address]- 2615 Jul, Rash 782.1 [facility] [address], [place] [address]- 9823 Jul, UTI (urinary tract infection) 599.0 [facility] [address], [place] [address]- 1673 Jul, [facility] [address], [place] [address]- 2679 Jun, Dysthymia 300.4 and Anxiety 300.00 [facility] [address], [place] [address]- 8982 Jun, 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 [facility] [id number], [place] [address]- 0018 May, [facility] [id number], [place] [address]- 5372 May, [facility] [id number], [place] [address]- 7031 May, Unspecified breast screening V76.10 [facility] [address] [id number] [id number] May, Dental examination V72.2 [facility] [id number], [place] [address]- 4147 April, [facility] [address] [place] [address] 2546 April, [facility] [address] [id number] [id number] April, Dental examination V72.2 [facility] [place] [facility] [address] [id number] [place] [id number] April, Dental examination V72.2 [facility] [address] [id number] [place] [address]- 9536 14 Mar, 2015 [facility] [address] [id number] [place] [address] 2547 Mar, [facility] [address] [id number] [place] [address]- 8736 25 Jan, 2015 [facility] [address] [id number] [place] [address]- 3675 25 Jan, 2015 [facility] [address] [id number] [place] [address]- 2765 18 Jan, 2015 [facility] [address] [id number] [place]- 7083 18 Jan, 2015 [facility] [address] [id number], [place]- 1526 16 Jan, 2015 [facility] [place] [facility] [address] [id number] [place]- 0335 16 Jan, 2015 [facility] [place] [facility] [address] [id number]- 8167 13 Jan, 2015 [facility] [place] [facility] [address] [id number] [place] [address]- 0827 13 Jan, 2015 [facility] [place] [facility] [address] [id number] [place] [address]- 1968 11 Jan, 2015 [facility] [place] [facility] [address] [id number], [place] [address]- 3506 11 Jan, 2015 [facility] [place] [facility] [address] [id number] [address]- 9384 Jan, [facility] [place] [facility] [address] [id number] [place] [address]- 2641 Jan, [facility] [place] [facility] [address] [id number] [place] [address]- 9575 Jan, [facility] [place] [facility] [address] [facility] [id number] [place] [address]- 6432 Jan, [facility] [place] [facility] [address] [id number] [place] [address]- 6154 Jan, 2014 [facility] [place] [facility] [address] [id number] [place] [address]- 4242 Jan, [facility] [place] [facility] [address] [facility] [id number] [place] [address]- 6273 Jan, [facility] [place] [facility] [address] [facility] [id number] [place] [address]- 3701 Jan, [facility] [place] [facility] [address] [facility] [id number] [place] [address]- 3801 Jan, [facility] [place] [facility] [address] [facility] [id number] [place] [address]- 3042 Jan, [facility] [place] [facility] [address] [facility] [id number] [place] [address] Jan, [facility] [place] [facility] [address] [facility] [id number] [place] [address] Jan, [facility] [place] [facility] [address] [facility] [id number], [place] [address] Dec, [facility] [place] [facility] [address] [id number] [place] [address] Dec, [facility] [place] [facility] [address] [facility] [id number] [place] [address] Dec, [facility] [place] [facility] [address] [facility] [id number], [place] [address] Dec, [facility] [place] [facility] [address] [id number] [place] [address] Nov, [facility] [place] [facility] [address] [id number] [place] [address] Nov, [facility] [place] [facility] [address] [id number] [place] [address] Nov, [facility] [place] [facility] [address] [id number] [place] [address] Nov, [facility] [place] [facility] [address] [id number] [place] [address] Nov, [facility] [place] [facility] [address] [id number] [place] [address] Nov, [facility] [place] [facility] [address] [id number] [place] [address] Nov, [facility] [place] [facility] [address] [id number] [place] [address]105 Oct, [facility] [place] [facility] [address] [id number] [place] [address] 9942 Oct, [facility] [place] [facility] [address] [id number] [place] [address]- [address]64 Oct, [facility] [place] [facility] [address] [id number] [place] [address]- 0772 Oct, [facility] [place] [facility] [address] [id number] [place] [address] 3269 Oct, [facility] [place] [facility] [address] [id number] [place] [address]- 4695 Oct, [facility] [place] [facility] [address] [id number] [place] [address]- 4258 Oct, [facility] [place] [facility] [address] [id number] [place] [address]- 1445 Oct, [facility] [place] [facility] [address] [id number] [place] [address]- 5945 Oct, [facility] [place] [facility] [address] [id number] [place] [address]- 1334 Oct, [facility] [place] [facility] [address] [id number] [place] [address]- 8046 Oct, [facility] [place] [facility] [address] [id number] [place] [address]- 7640 Oct, [facility] [place] [facility] [address] [id number] [place] [address]- 8154 Sep, [facility] [place] [facility] [address] [id number] [place] [address]- 1540 Sep, [facility] [place] [facility] [address] [id number] [place] [address]- 2560 Sep, [facility] [place] [facility] [address] [id number] [place] [address]- 2150 Sep, [facility] [place] [facility] [address] [id number] [place] [address]- 9896 Jul, [facility] [place] [facility] [address] [id number] [place] [address]- 9037 Jul, [facility] [place] [facility] [address] [id number] [place] [address]- 9737 Jul, [facility] [place] [facility] [address] [id number] [place] [address]- 9463 Jul, [facility] [place] [facility] [address] [id number] [place] [address]- 1167 Jun, [facility] [place] [facility] [address] [id number] [place] [address]- 2314 Jun, [facility] [place] [facility] [address] [id number] [place] [address]- 9794 Jun, [facility] [place] [facility] [address] [id number] [place] [address]- 0700 Jun, [facility] [place] [facility] [address] [id number] [place] [address]- 0714 May, [facility] [address] [id number] [place] [address] May, [facility] [address] [id number] [place] [address]- 4991 April, [facility] [address] [id number] [place] [address]- 9213 April, [facility] [address] [id number] [place] [address] 4209 April, [facility] [address] [id number] [place] [address]- 9093 April, [facility] [address] [id number] [place] [address]- 6413 April, [facility] [address] [id number] [place] [address]- 2236 April, [facility] [address] [id number] [place] [address]- 4132 April, [facility] [address] [id number] [place] [address]- 3498 April, [facility] [address] [id number] [place] [address]- 8849 April, [facility] [address] [id number] [place] [address]- 9969 Mar, [facility] [address] [id number] [place] [address]- 5967 Mar, [facility] [place] [facility] [address] [id number] [place] [address]- 8618 Mar, [facility] [place] [facility] [address] [id number] [place] [address]- 6754 Mar, [facility] [address] [id number] [place] [address]- 0763 Jan, [facility] [place] [facility] [address] [id number] [place] [address]- 1417 Jan, [facility] [place] [facility] [address] [id number] [place] [address]- 3508 Jan, [facility] [place] [facility] [address] [id number] [place] [address]- 0081 Jan, [facility] [place] [facility] [address] [id number] [place] [address]- 9551 Jan, [facility] [place] [facility] [address] [id number] [place] [address]- 5012 Jan, [facility] [place] [facility] [address] [id number] [place] [address]- 4337 Jan, [facility] [place] [facility] [address] [id number] [place] [address]- 2672 Jan, [facility] [place] [facility] [address] [id number] [place] [address]- 0482 Jan, [facility] [place] [facility] [address] [id number] [place] [address]- 7428 Jan, [facility] [place] [facility] [address] [id number] [place] [address]- 0112 Jan, [facility] [place] [facility] [address] [id number] [place] [address]- 5447 Jan, [facility] [place] [facility] [address] [id number] [place] [address]- 8937 Dec, [facility] [place] [facility] [address] [id number] [place] [address]- 2931 Dec, [facility] [place] [facility] [address] [id number] [place] [address]- 4760 Dec, [facility] [place] [facility] [address] [id number] [place] [address]- 0830 Dec, [facility] [place] [facility] [address] [id number] [place] [address]- 7497 Nov, [facility] [address] [id number] [place] [address]- 1613 Nov, [facility] [place] [facility] [address] [id number] [place] [address]- 5511 Nov, [facility] [place] [facility] [address] [id number] [place] [address]- 9181 Nov, [facility] [place] [facility] [address] [id number] [place] [address]- 7390 Oct, [facility] [place] [facility] [address] [id number] [place] [address]- 5391 Oct, [facility] [place] [facility] [address] [id number] [place] [address]- 7365 Sep, [facility] [place] [facility] [address] [id number] [place] [address]- 7216 Sep, [facility] [place] [facility] [address] [id number] [place] [address]- 8327 Jul, [facility] [place] [facility] [address] [id number] [place] [address]- 3656 Jul, [facility] [place] [facility] [address] [facility] [id number] [place] [address]- 8671 Jun, [facility] [place] [facility] [address] [id number] [place] [address]- 6228 Jun, [facility] [place] [facility] [address] [id number] [place] [address]- 6429 Jun, [facility] [place] [facility] [address] [id number] [place] [address]- 7576 May, [facility] [place] [facility] [address] [id number] [place] [address]- 4484 May, [facility] [place] [facility] [address] [id number] [place] [address]- 8482 May, [facility] [place] [facility] [address] [id number] [place] [address]- 1305 May, [facility] [address] [id number] [place] [address]- 5759 May, [facility] [address] [id number] [place] [address]- 4797 April, [facility] [address] [id number] [place] [address]- 1772 April, [facility] [address] [id number] [place] [address]- 8301 April, [facility] [address] [id number] [place] [address]- 3604 April, [facility] [address] [id number] [place] [address]- 1811 April, [facility] [address] [id number] [place] [address]- 5419 April, [facility] [address] [id number] [place] [address]- 5120 Mar, [facility] [address] [id number] [place] [address]- 6085 Mar, [facility] [address] [id number] [place] [address]- 8574 Jan, [facility] [address] [id number] [place] [address]- 0750 Jan, [facility] [address] [id number] [place] [address]- 5080 Jan, [facility] [place] [facility] [address] [id number] [place] [address]- 5378 Jan, [facility] [place] [facility] [address] [id number] [place] [address]- 5483 Jan, [facility] [place] [facility] [address] [id number] [place] [address]- 5943 Jan, 2012 [facility] [address] [id number] [place] [address]- 6306 05 Jan, 2012 [facility] [address] [id number] [place] [address] 2546 04 Jan, 2012 [facility] [address] [id number] [place] [address]- 7276 Jan, 2012 [facility] [address] [id number] [place] [address]- 7380 Jan, 2012 [facility] [address] [id number] [place] [address]- 3389 Jan, [facility] [address] [id number] [place] [address]- 7478 Dec, [facility] [address] [id number] [place] [address]- 5529 Nov, [facility] [address] [id number] [place] [address]- 2548 Nov, [facility] [address] [id number] [place] [address]- 1429 Nov, [facility] [address] [facility] [id number] [place] [address]- 5553 Nov, [facility] [address] [id number] [place] [address] 2547 Nov, [facility] [address] [id number] [place] [address] 2546 Nov, [facility] [address] [id number] [place] [address] 2548 Nov, [facility] [address] [id number] [place] [address]- 2542 Nov, [facility] [address] [id number] [place] [address]- 2544 Nov, [facility] [place] [facility] [address] [id number] [place] [address]- 7432 18 Nov, 2012 [facility] [place] [facility] [address] [id number] [place] [address] 18 Nov, 2012 [facility] [place] [facility] [address] [id number] [place] [address] Nov, [facility] [place] [facility] [address] [id number] [place] [address]- 4096 Nov, [facility] [place] [facility] [address] [id number] [place] [address]- 3446 17 Oct, 2012 [facility] [place] [facility] [address] [id number] [place] [address]- 2295 Oct, [facility] [place] [facility] [address] [id number] [place] 3827 Oct, [facility] [place] [facility] [address] [id number] [place] [address]- 3723 Sep, [facility] [place] [facility] [address] [id number] [place] [address]- 9088 Sep, [facility] [place] [facility] [address] [id number] [place] [address]- 4482 10 Sep, 2012 [facility] [place] [facility] [address] [facility] [id number] [place] [address]- 2198 10 Sep, 2012 [facility] [place] [facility] [address] [id number] [place] [address]- 2917 27 Aug, 2012 [facility] [place] [facility] [address] [id number] [place] [address]- 1781 20 Aug, 2012 [facility] [place] [facility] [address] [id number] [place] [address]- 2356 24 Jul, 2012 [facility] [place] [facility] [address] [id number] [place] [address] 2546 27 May, 2012 [facility] [place] [facility] [address] [id number] [place] [address]- 0280 14 May, 2012 [facility] [address] [id number] [place] [address]- 5294 14 May, 2012 [facility] [place] [facility] [address] [id number] [place] [address]- 8815 April, [facility] [place] [facility] [address] [id number] [place] [address]- 4067 Mar, [facility] [place] [facility] [address] [id number] [place] [address]- 3960 Mar, [facility] [place] [facility] [address] [id number] [place] [address]- 5723 Mar, [facility] [place] [facility] [address] [id number] [place] [address]- 6443 Jan, [facility] [place] [facility] [address] [id number] [place] [address]- 7660 Jan, [facility] [place] [facility] [address] [id number] [place] [address]- 2784 Jan, [facility] [place] [facility] [address] [id number] [place] [address]- 8036 Dec, [facility] [place] [facility] [address] [id number] [place] [address]- 7165 Dec, [facility] [place] [facility] [address] [id number], [place] [address]- 8538 Dec, [facility] [place] [facility] [address] [id number], [place] [address]- 0307 Dec, [facility] [place] [facility] [address] [id number] [place] [address]- 6026 Nov, [facility] [place] [facility] [address] [id number] [place] [address]- 2627 Nov, [facility] [place] [facility] [address] [id number] [place] [address] 2546 Nov, [facility] [place] [facility] [address] [id number] [place] [address]- 3348 03 Oct, 2011 [facility] [address] [id number] [place] [address]- 5676 31 Sep, 2011 [facility] [place] [facility] [address] [id number] [place] [address] 2546 26 Sep, 2011 [facility] [place] [facility] [address] [id number] [place] [address]- 6146 13 Sep, 2011 [facility] [place] [facility] [address] [id number] [place] [address] 2540 15 Nov, 2010 [facility] [place] [facility] [address] [id number] [place] [address]- 4384 23 Oct, 2010 [facility] [place] [facility] [address] [id number] [place] [address]- 3214 Oct, [facility] [place] [facility] [address] [id number] [place] [address]- 8063 18 Oct, 2010 [facility] [place] [facility] [address] [id number] [place] [address]- 1988 16 Oct, 2010 [facility] [place] [facility] [address] [id number] [place] [address]- 0893 Sep, [facility] [place] [facility] [address] [id number] [place] [address]- 7906 April, [facility] [place] [facility] [address] [id number] [place] [address] 2540 29 Nov, 2009 [facility] [place] [facility] [address] [id number] [place] [address]- 2540 24 Nov, 2009 [facility] [place] [facility] [address] [id number] [place] [address] 2545 22 Nov, 2009 [facility] [place] [facility] [address] [id number] [place] [address]- 2540 10 Nov, 2009 [facility] [place] [facility] [address] [id number] [place] [address] 2542 Nov, [facility] [address] [facility] [id number] [id number] [address] Oct, [facility] [address] [facility] [id number], [place] [address]- 8881 Oct, [facility] [address] [facility] [id number], [place] [address]- 2007 Sep, [facility] [address] [facility] [id number], [place] [address]- 2754 Jan, IMMUNIZATIONS No Known Immunizations SOCIAL HISTORY Never Assessed REASON FOR VISIT dementia PLAN OF CARE VITAL SIGNS MEDICATIONS Unknown Medications RESULTS No Results PROCEDURES No Known procedures INSTRUCTIONS MEDICATIONS ADMINISTERED No Known Medications MEDICAL (GENERAL) HISTORY Type Description Date Medical History Hypertension Medical History Heart disease CABG X3 Stress test 07/2015 Medical History Gastric ulcer Medical History Hyperlipidemia Medical History Headache syndrome Medical History Psychiatric disorders-depression/racing thoughts Medical History Depression Medical History [facility] 04/2016 Started on Eliquis Medical History Anemia 04/2016 postsurgical hip fx Surgical History right hip replacement w/ Dr. Bruce 2011 Surgical History triple bypass surgery 2003 Surgical History S/P left hip IM Nail (Intertrechanteric hip fx) 04/28/16 Hospitalization History surgeries Hospitalization History Hypertension Hospitalization History ER for a concussion 11/24/15 Hospitalization History Intertrechanteric hip fx 04/27/16 Hospitalization History [facility] (inpatient [facility] 2 times) Hx of 3 inpatient psych treatments in past in [place] oct 2016 [facility] History [facility] 2016
[2018-08-20] MEDS ORDERED: ONDANSETRON 4 MG/2 ML (SDV) Z0FRAN IVP ONE (13:00)
--- OUTSIDE RECORDS SUMMARY | 2018-08-20 13:00 | XMS REPORT ---
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 Name Role Phone WOLF AGUIRRE Unavailable PROBLEMS Type Condition ICD9-CM Code BPB97-GS Code Onset Dates Condition Status SNOMED Code Problem Sundowning F05 Active 847178857 Problem Constipation, unspecified constipation type K59.00 Active 83898103 Problem Reactive depression F32.9 Active 40709058 Problem Vascular dementia with behavior disturbance F01.51 Active 306270610896767 Problem Insomnia, unspecified type G47.00 Active 987492407 Problem Generalized anxiety disorder F41.1 Active 03186695 Problem Other chronic pain G89.29 Active 62958400 Problem Severe episode of recurrent major depressive disorder, without psychotic features F33.2 Active 48590356 Problem Slow transit constipation K59.01 Active 47165223 Problem 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 Active 175976327 Problem Obsessive thinking F42.8 Active 43888398 Problem Failure to thrive in adult R62.7 Active 652901185 Problem Dysthymic disorder F34.1 Active 67161957 Problem Hypertension I10 Active 36993423 Problem Mood disorder F39 Active 64683260 Problem Irritable bowel syndrome with diarrhea K58.0 Active 856107304 Problem Oropharyngeal dysphagia R13.12 Active 47544961 Problem 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 Active 95752606 Problem Other chronic pain G89.29 Active 91123941 Problem Primary insomnia F51.01 Active 8007501 Problem Poor appetite R63.0 Active 82420509 Problem 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 Active 014301425930103 Problem Iron deficiency anemia secondary to inadequate dietary iron intake D50.8 Active 866657649 Problem Coarse tremors G25.2 Active 32718128 Problem Gastroesophageal reflux disease without esophagitis K21.9 Active 207480687 Problem Essential hypertension I10 Active 42620426 ALLERGIES No Information ENCOUNTERS Encounter Location Date Diagnosis [facility] [address] [address] Jun, [facility] [id number] [place] [address] 84302- 2365 Jun, [facility] [address] [place] [id number] Jun, Left lower quadrant pain R10.32 and Left leg pain M79.605 [facility] [id number] [place] [address] 73400- 3893 Jun, [facility] [address] [place] [id number] Jun, Pain in left hip M25.552 ; Pain in right hip M25.551 and Primary insomnia F51.01 [place] [id number] [place] [address] 39615- 6647 Jun, [facility] [address] [place] [id number] May, [facility] [address] [place] [address] 25293- 9216 May, [place] [id number] [place] [address] 14344- 5868 May, [facility] [address] [id number] May, Mood disorder F39 [place] [address] [place] [address] 05447- 7153 May, [facility] [address] [address] 8056 April, [facility] [address] [place] [id number] April, Generalized anxiety disorder F41.1 ; Obsessive thinking F42.8 and Insomnia , unspecified type G47.00 [facility] [address] [address] 3545 April, [place] [address] [address] 4001 April, Rash of face R21 [place] [id number] [place] [address] 09655- 4311 Mar, [place] [address] [address] 0211 Mar, [place] [id number] [place] [address] 88239- 0401 Mar, [place] [address] [place] [address] 43540- 2788 Jan, [place] [id number] [place] [address] 63364- 1257 Jan, [facility] [address] [id number] Jan, Constipation, unspecified constipation type K59.00 and Other chronic pain G89.29 [place] [address] [place] [address] 63931- 8072 Jan, [facility] [address] [place] [id number] Jan, Obsessive thinking F42.8 and Coarse tremors G25.2 [place] [id number] [place] [address] [phone] Jan, [place] [id number] [place] [address] [id number] Jan, [facility] [address] [place] [id number] Jan, Generalized anxiety disorder F41.1 ; Obsessive thinking F42.8 ; Callus of foot L84 and 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 [place] [address] [address]- 7847 Dec, Generalized anxiety disorder F41.1 and Severe episode of recurrent major depressive disorder, without psychotic features F33.2 [place] [id number] [address]- 6736 Nov, [facility] [address] [place] [address] 572489- 9185 Nov, [facility] [address] [place] [phone] Nov, Oropharyngeal dysphagia R13.12 ; Generalized anxiety disorder F41.1 and 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 [facility] [id number] [place] [address] 40334- 8604 Nov, [facility] [id number] [place] [address] [phone] Nov, [facility] [id number] [place] [address] 96158- 7441 Nov, [facility] [id number] [place] [address] 16820- 3260 Nov, [facility] [id number] [place] [address] 70374- 5357 Oct, Constipation, unspecified constipation type K59.00 and Mood disorder F39 [facility] [address] [place] [address] 44833- 7259 Oct, [facility] [id number] [id number] Sep, [facility] [id number] [id number] Sep, [facility] [id number] [place] [address] [id number] Sep, [facility] [id number] [address] Sep, [facility] [address] [place] [phone] Sep, Generalized abdominal pain R10.84 [facility] [address] [address]- 2546 Sep, [facility] [id number] [phone] Sep, Generalized anxiety disorder F41.1 and Primary insomnia F51.01 [facility] [place] [id number] [id number] Aug, [facility] [place] [id number] [id number] Aug, Generalized anxiety disorder F41.1 [facility] [address] [place] [address] 87119- 9446 Jul, [facility] [address] [place] [id number] Jul, Obsessive thinking F42.8 [facility] [address] [place] [address] 06151- 1226 Jul, Generalized anxiety disorder F41.1 and Irritable bowel syndrome with diarrhea K58.0 [facility] [place] [id number] [place] [address] [id number] Jul, Generalized anxiety disorder F41.1 [facility] [place] [id number] [place] [id number] Jun, Generalized anxiety disorder F41.1 [facility] [address] [place] [address] 52599051- 6289 May, [facility] [address] [place] [phone] May, Generalized anxiety disorder F41.1 ; Irritable bowel syndrome with diarrhea K58.0 and Coarse tremors G25.2 [facility] [address] [address]- 1720 April, [facility] [address] [place] [address] 08716- 1137 April, [facility] [address] [address] 1498 April, [facility] [address] [address]274 Mar, [facility] [address] [place] [id number] Mar, Severe episode of recurrent major depressive disorder, without psychotic features F33.2 and Pain in left hip M25.552 [facility] [address] [place] [address] 27884- 4235 Mar, [facility] [id number] [place] [address] 53315- 5456 Mar, [facility] [id number] [place] [address] 49952- 5484 Mar, [place] [id number] [place] [address] 96663- 3841 Mar, Pain in right hip M25.551 and Self-care deficit in patient living alone R46.89 [facility] [id number] [place] [address] 67205 -9296 Jan, Other chronic pain G89.29 ; Pain in left hip M25.552 and Slow transit constipation K59.01 [place] [id number] [place] [address] 45914- 7443 Jan, [place] [id number] [place] [address] 67429- 3619 Dec, Other depression F32.89 ; Constipation, unspecified constipation type K59.00 and Insomnia, unspecified type G47.00 [place] [address] [place] [address] 82929- 2656 Nov, Reactive depression F32.9 ; Chronic idiopathic constipation K59.04 ; Generalized anxiety disorder F41.1 ; Coarse tremors G25.2 ; Gastroesophageal reflux disease without esophagitis K21.9 ; Dysthymic disorder F34.1 ; Vitamin deficiency, unspecified E56.9 and Primary insomnia F51.01 [place] [address] [place] [address] 67862- 0766 Nov, [place] [id number] [place] [address] 50279- 5608 Nov, [facility] [id number] [place] [address] 43149- 2298 Nov, [place] [address] 77799- 1312 Nov, Reactive depression F32.9 ; Essential hypertension I10 ; Generalized anxiety disorder F41.1 ; 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 ; Pain in right hip M25.551 ; Other chronic pain G89.29 ; Chronic idiopathic constipation K59.04 ; Primary insomnia F51.01 ; Coarse tremors G25.2 ; Gastroesophageal reflux disease without esophagitis K21.9 ; Iron deficiency anemia secondary to inadequate dietary iron intake D50.8 and Vitamin deficiency, unspecified E56.9 [place] [id number] [place] [address] 05335- 7362 Oct, [place] [address] 65826- 3802 Oct, [place] [id number] [place] [address] 82036- 6520 Oct, [place] [address] 07339- 8173 16 Oct, 2016 Generalized anxiety disorder F41.1 ; Poor appetite R63.0 ; Dehydration E86.0 and Failure to thrive in adult R62.7 [place] [id number] [place] [address] 22394- 8292 07 Oct, 2016 Generalized anxiety disorder F41.1 and Failure to thrive in adult R62.7 [place] [id number] [place] [address] 90855- 4158 Oct, [place] [address] 84375- 9601 Oct, [facility] [id number] [place] [address] 96627 -6919 Sep, Vaginal discharge N89.8 and Acute cystitis with hematuria N30.01 [facility] [address] [address]- 0020 Sep, [facility] [id number] [place] [address] 17004- 0905 Sep, [facility] [id number] [place] [address] 72028- 7467 Sep, Dysthymic disorder F34.1 ; Acute vaginitis N76.0 ; Dysuria R30.0 and Vaginal yeast infection B37.3 [place] [id number] [place] [address] 36400- 4257 Aug, [place] [id number] [place] [address] 93356- 6896 Aug, [facility] [id number] [place] [address] 94128 -8073 Aug, Foul smelling urine R82.90 ; Rapid heart rate R00.0 and Flatulence R14.3 [place] [id number] [place] [address] 02442- 2247 Aug, [place] [id number] [place] [address] 32014- 2501 Jul, Constipation, unspecified constipation type K59.00 ; Weak R53.1 ; Poor appetite R63.0 ; Coronary artery disease involving [place] heart without angina pectoris, unspecified vessel or lesion type I25.10 ; Fatigue, unspecified type R53.83 ; Urinary incontinence, unspecified type R32 and Insomnia, unspecified type G47.00 [place] [id number] [place] [address] 78203- 5108 Jul, [place] [id number] [place] [address] 43425- 4953 Jun, Dysuria R30.0 [place] [id number] [place] [address] 69971- 3847 Jun, [facility] [address] [place] [address] 41363- 8826 Jun, Urinary tract infection, site not specified N39.0 ; Acute vaginitis N76.0 and Diarrhea, unspecified type R19.7 [facility] [address] [address]- 4194 May, [facility] [id number] [place] [address] 20628- 4595 April, [facility] [id number] [place] [address] [id number] April, Encounter for dental examination Z01.20 [facility] [id number] [place] [address] 90982- 3713 April, [facility] [id number] [place] [address] 95305- 6057 April, Tremor R25.1 and Episodic tension-type headache, not intractable G44.219 [facility] [id number] [place] [address] 70011- 6771 Mar, [facility] [id number] [place] [address] 11772- 3075 Jan, Mood disorder F39 [facility] [address] [place] [address] 42860 -5173 Jan, [facility] [id number] [place] [address] 04946- 5509 Jan, [facility] [address] [place] [address] 31874- 8146 Jan, [facility] [id number] [place] [address] 66658- 2264 Jan, [facility] [address] [address]- 1505 Jan, [facility] [id number] [place] [address] 85528- 7977 Jan, [facility] [address] [place] [address] 72938 -5553 Dec, Acute diarrhea R19.7 [facility] [id number] [place] [address] 21179- 5799 Dec, [facility] [id number] [place] [address] 45822- 7982 Dec, [facility] [id number] [place] [address] 43407- 5553 Dec, [facility] [id number] [place] [address] 32696 -2976 Dec, N&V (nausea and vomiting) R11.2 [facility] [id number] [place] [address] 36987- 0261 Dec, Generalized anxiety disorder F41.1 [facility] [address] 79165- 8098 Dec, Generalized anxiety disorder F41.1 [facility] [id number] [place] [address] 83740- 5938 Nov, Post concussion syndrome F07.81 [facility] [id number] [place] [address] 99085- 2864 Nov, Generalized anxiety disorder F41.1 [facility] [id number] [place] [address] 52199- 0152 Nov, [facility] [id number] [place] [address] 32995- 9370 Nov, Generalized anxiety disorder F41.1 [facility] [id number] [place] [address] [id number] Oct, Dental caries K02.9 [facility] [id number] [place] [address] 68371- 6503 Oct, [facility] [address] [place] [id number] Oct, Dental examination Z01.20 [facility] [address] [place] [address] [id number] 10 Oct, 2015 Encounter for dental examination Z01.20 [facility] [id number] [place] [address] 08610- 3635 09 Oct, 2015 CAD (coronary artery disease) I25.10 [facility] [address] 88239- 5020 Sep, Generalized anxiety disorder F41.1 [facility] [id number] [place] [address] 85154- 8312 Sep, [facility] [id number] [place] [address] 39547- 0699 Sep, Rash and other nonspecific skin eruption R21 and Yeast vaginitis B37.3 [facility] [id number] [place] [address] 99504- 1754 Sep, Generalized anxiety disorder F41.1 [facility] [id number] [place] [address] 52883- 0020 Aug, Insect bites 919.4 and Hemorrhoids 455.6 [facility] [id number] [place] [address] 78833- 1610 Aug, Generalized anxiety disorder 300.02 [facility] [id number] [place] [address] 04195- 3534 08 Aug, 2015 [facility] [id number] [place] [address] 81824- 6346 Aug, [facility] [address] 22663- 9228 Aug, Generalized anxiety disorder 300.02 ; No condition on [place] II V71.09 ; Heart problem 429.9 and Hypertension 401.9 [facility] [id number] [place] [address] 86439- 3665 Aug, [place] [address] [facility] [id number] [address]- 4819 Jul, [facility] [address] [address]- 7147 Jul, [facility] [address] [address]- 5995 Jul, [facility] [address] [address]- 9794 Jul, [facility] [id number] [address]- 7619 Jul, Rash 782.1 [facility] [address] [address]- 0038 Jul, UTI (urinary tract infection) 599.0 [facility] [address] [address]- 6889 Jul, [facility] [address] [address]- 6491 Jun, Dysthymia 300.4 and Anxiety 300.00 [facility] [address] [address]- 2907 Jun, 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 [address] [id number] [id number] May, Dental examination V72.2 [facility] [id number] [address]- 0032 April, [facility] [address] [place] [address] 2546 April, [facility] [address] [id number] [id number] April, Dental examination V72.2 [facility] [place] [facility] [address] [id number] [place] [id number] April, Dental examination V72.2 [facility] [address] [id number] [place] [address]- 5666 14 Mar, 2015 [facility] [address] [id number] [place] [address] 2540 Mar, [facility] [address] [id number] [place] [address]- 7316 25 Jan, 2015 [facility] [address] [id number] [place] [address]- 1063 25 Jan, 2015 [facility] [address] [id number] [place] [address]- 4638 18 Jan, 2015 [facility] [address] [id number] [place]- 2446 18 Jan, 2015 [facility] [address] [id number]- 2152 16 Jan, 2015 [facility] [place] [facility] [address] [id number] [place]- 4141 16 Jan, 2015 [facility] [place] [facility] [address] [id number] [address] [address] 13 Jan, 2015 [facility] [place] [facility] [address] [id number] [place] [address] 13 Jan, 2015 [facility] [place] [facility] [address] [id number] [place] [address] 11 Jan, 2015 [facility] [place] [facility] [address] [id number] [address] 11 Jan, 2015 [facility] [place] [facility] [address] [id number] [place] [id number] [address] Jan, [facility] [place] [facility] [address] [id number] [place] [address] Jan, [facility] [place] [facility] [address] [id number] [place] [address] Jan, [facility] [place] [facility] [address] [facility] [id number] [place] [address] Jan, [facility] [place] [facility] [address] [id number] [place] [address] Jan, 2014 [facility] [place] [facility] [address] [id number] [place] [address] Jan, [facility] [place] [facility] [address] [facility] [id number] [place] [address] Jan, [facility] [place] [facility] [address] [facility] [id number] [place] [address] Jan, [facility] [place] [facility] [address] [facility] [id number] [place] [address] Jan, [facility] [place] [facility] [address] [facility] [id number] [place] [address] Jan, [facility] [place] [facility] [address] [facility] [id number] [place] [address] Jan, [facility] [place] [facility] [address] [facility] [id number] [place] [address] Jan, [facility] [place] [facility] [address] [facility] [id number] [place] [address] Dec, [facility] [place] [facility] [address] [id number] [place] [address] Dec, [facility] [place] [facility] [address] [facility] [id number] [place] [address]- [address] Dec, [facility] [place] [facility] [address] [facility] [id number] [place] [address] Dec, [facility] [place] [facility] [address] [address] [id number] [place] [address] Nov, [facility] [place] [facility] [address] [id number] [place] [address] 39[address] Nov, [facility] [place] [facility] [address] [id number] [place] [address] 3567 Nov, [facility] [place] [facility] [address] [id number] [place] [address] 0793 Nov, [facility] [place] [facility] [address] [id number] [place] [address] 8258 Nov, [facility] [place] [facility] [address] [id number] [place] [address] 4789 Nov, [facility] [place] [facility] [address] [id number] [place] [address] 0120 Nov, [facility] [place] [facility] [address] [id number] [place] [address] 4580 Oct, [facility] [place] [facility] [address] [id number] [place] [address] Oct, [facility] [place] [facility] [address] [id number] [place] [address] 9983 Oct, [facility] [place] [facility] [address] [id number] [place] [address]109 Oct, [facility] [place] [facility] [address] [id number] [place] [address] 7729 Oct, [facility] [place] [facility] [address] [id number] [place] [address] 6738 Oct, [facility] [place] [facility] [address] [id number] [place] [address] 2727 Oct, [facility] [place] [facility] [address] [id number] [place] [address]- 0657 Oct, [facility] [place] [facility] [address] [id number] [place] [address] 9054 Oct, [facility] [place] [facility] [address] [id number] [place] [address] 8550 Oct, [facility] [place] [facility] [address] [id number] [place] [address]- 5481 Oct, [facility] [place] [facility] [address] [id number] [place] [address]- 6464 Oct, [facility] [place] [facility] [address] [id number] [place] [address]- 3334 Sep, [facility] [place] [facility] [address] [id number] [place] [address]- 1342 Sep, [facility] [place] [facility] [address] [id number] [place] [address]- 3279 Sep, [facility] [place] [facility] [address] [id number] [place] [address]- 2061 Sep, [facility] [place] [facility] [address] [id number] [place] [address] 1343 Jul, [facility] [place] [facility] [address] [id number] [place] [address] 0849 Jul, [facility] [place] [facility] [address] [id number] [place] [address]- 8688 Jul, [facility] [place] [facility] [address] [id number] [place] [address]- 6703 Jul, [facility] [place] [facility] [address] [id number] [place] [address]- 3514 Jun, [facility] [place] [facility] [address] [id number] [place] [address]- 5458 Jun, [facility] [place] [facility] [address] [id number] [place] [address]- 2909 Jun, [facility] [place] [facility] [address] [id number] [place] [address] 6843 Jun, [facility] [place] [facility] [address] [id number] [place] [address] 2341 May, [facility] [address] [id number] [place] [address] 4488 May, [facility] [address] [id number] [place] [address] 8359 April, [facility] [address] [id number] [place] [address] 6189 April, [facility] [address] [id number] [place] [address] 1787 April, [facility] [address] [id number] [place] [address] April, [facility] [address] [id number] [place] [address]- 1515 April, [facility] [address] [id number] [place] [address]- 7220 April, [facility] [address] [id number] [place] [address]- 0884 April, [facility] [address] [id number] [place] [address]- 2171 April, [facility] [address] [id number] [place] [address] 6122 April, [facility] [address] [id number] [place] [address] 3832 Mar, [facility] [address] [id number] [place] [address]- 6464 Mar, [facility] [place] [facility] [address] [id number] [place] [address]- 3206 Mar, [facility] [place] [facility] [address] [id number] [place] [address]- 3906 Mar, [facility] [address] [id number] [place] [address]- 5049 Jan, [facility] [place] [facility] [address] [id number] [place] [address]- 4016 Jan, [facility] [place] [facility] [address] [id number] [place] [address]- 5108 Jan, [facility] [place] [facility] [address] [id number] [place] [address]- 6448 Jan, [facility] [place] [facility] [address] [id number] [place] [address]- 4143 Jan, [facility] [place] [facility] [address] [id number] [place] [address]- 5273 Jan, [facility] [place] [facility] [address] [id number] [place] [address]- 9977 Jan, [facility] [place] [facility] [address] [id number] [place] [address]- 7344 Jan, [facility] [place] [facility] [address] [id number] [place] [address]- 5452 Jan, [facility] [place] [facility] [address] [id number] [place] [address]- 1893 Jan, [facility] [place] [facility] [address] [id number] [place] [address]- 9531 Jan, [facility] [place] [facility] [address] [id number] [place] [address]- 5940 Jan, [facility] [place] [facility] [address] [id number] [place] [address]- 3264 Dec, [facility] [place] [facility] [address] [id number] [place] [address]- 3731 Dec, [facility] [place] [facility] [address] [id number] [place] [address]- 7441 Dec, [facility] [place] [facility] [address] [id number] [place] [address]- 0141 Dec, [facility] [place] [facility] [address] [id number] [place] [address]- 5099 Nov, [facility] [address] [id number] [place] [address]- 5601 Nov, [facility] [place] [facility] [address] [id number] [place] [address]- 4761 Nov, [facility] [place] [facility] [address] [id number] [place] [address]- 0878 Nov, [facility] [place] [facility] [address] [id number] [place] [address]- 3298 Oct, [facility] [place] [facility] [address] [id number] [place] [address]- 6140 Oct, [facility] [place] [facility] [address] [id number] [place] [address]- 9045 Sep, [facility] [place] [facility] [address] [id number] [place] [address]- 7127 Sep, [facility] [place] [facility] [address] [id number] [place] [address]- 7590 Jul, [facility] [place] [facility] [address] [id number] [place] [address]- 9353 Jul, [facility] [place] [facility] [address] [facility] [id number] [place] [address]- 2834 Jun, [facility] [place] [facility] [address] [id number] [place] [address]- 3250 Jun, [facility] [place] [facility] [address] [id number] [place] [address]- 3435 Jun, [facility] [place] [facility] [address] [id number] [place] [address]- 8425 May, [facility] [place] [facility] [address] [id number] [place] [address]- 2050 May, [facility] [place] [facility] [address] [id number] [place] [address]- 3013 May, [facility] [place] [facility] [address] [id number] [place] [address]- 1331 May, [facility] [address] [id number] [place] [address]- 1199 May, [facility] [address] [id number] [place] [address]- 9456 April, [facility] [address] [id number] [place] [address]- 7418 April, [facility] [address] [id number] [place] [address]- 1088 April, [facility] [address] [id number] [place] [address]- 1411 April, [facility] [address] [id number] [place] [address]- 2308 April, [facility] [address] [id number] [place] [address]- 9051 April, [facility] [address] [id number] [place] [address]- 7277 Mar, [facility] [address] [id number] [place] [address]- 8892 Mar, [facility] [address] [id number] [place] [address]- 7027 Jan, [facility] [address] [id number] [place] [address]- 7245 Jan, [facility] [address] [id number] [place] [address]- 3287 Jan, [facility] [place] [facility] [address] [id number] [place] [address]- 7446 Jan, [facility] [place] [facility] [address] [id number] [place] [address]- 7463 Jan, [facility] [place] [facility] [address] [id number] [place] [address]- 0245 Jan, 2012 [facility] [address] [id number] [place] [address]- 1226 05 Jan, 2012 [facility] [address] [id number] [place] [address] 2546 04 Jan, 2012 [facility] [address] [id number] [place] [address]- 9416 Jan, 2012 [facility] [address] [id number] [place] [address]- 2349 Jan, 2012 [facility] [address] [id number] [place] [address]- 4085 Jan, [facility] [address] [id number] [place] [address]- 9614 Dec, [facility] [address] [id number] [place] [address]- 9506 Nov, [facility] [address] [id number] [place] [address]- 2543 Nov, [facility] [address] [id number] [place] [address]- 3668 Nov, [facility] [address] [facility] [id number] [place] [address]- 4723 Nov, [facility] [address] [id number] [place] [address] 2544 Nov, [facility] [address] [id number] [place] [address] 2546 Nov, [facility] [address] [id number] [place] [address] 2545 Nov, [facility] [address] [id number] [place] [address]- 2544 Nov, [facility] [address] [id number] [place] [address]- 2542 Nov, [facility] [place] [facility] [address] [id number] [place] [address]- 0849 18 Nov, 2012 [facility] [place] [facility] [address] [id number] [place] [address] 18 Nov, 2012 [facility] [place] [facility] [address] [id number] [place] [address] Nov, [facility] [place] [facility] [address] [id number] [place] [address]- 7546 Nov, [facility] [place] [facility] [address] [id number] [place] [address]- 8121 17 Oct, 2012 [facility] [place] [facility] [address] [id number] [place] [address]- 1344 Oct, [facility] [place] [facility] [address] [id number] [place] [address] Oct, [facility] [place] [facility] [address] [id number] [place] [address]- 5141 Sep, [facility] [place] [facility] [address] [id number] [place] [address]- 8516 Sep, [facility] [place] [facility] [address] [id number] [place] [address]- 4966 10 Sep, 2012 [facility] [place] [facility] [address] [facility] [id number] [place] [address]- 3833 10 Sep, 2012 [facility] [place] [facility] [address] [id number] [place] [address]- 3152 27 Aug, 2012 [facility] [place] [facility] [address] [id number] [place] [address]- 9496 20 Aug, 2012 [facility] [place] [facility] [address] [id number] [place] [address]- 8636 24 Jul, 2012 [facility] [place] [facility] [address] [id number] [place] [address] 2546 27 May, 2012 [facility] [place] [facility] [address] [id number] [place] [address]- 2914 14 May, 2012 [facility] [address] [id number] [place] [address]- 4082 14 May, 2012 [facility] [place] [facility] [address] [id number] [place] [address]- 9376 April, [facility] [place] [facility] [address] [id number] [place] [address]- 9416 Mar, [facility] [place] [facility] [address] [id number] [place] [address]- 6373 Mar, [facility] [place] [facility] [address] [id number] [place] [address]- 7925 Mar, [facility] [place] [facility] [address] [id number] [place] [address]- 0233 Jan, [facility] [place] [facility] [address] [id number] [place] [address]- 0887 Jan, [facility] [place] [facility] [address] [id number] [place] [address]- 2198 Jan, [facility] [place] [facility] [address] [id number] [place] [address]- 3352 Dec, [facility] [place] [facility] [address] [id number] [place] [address]- 8973 Dec, [facility] [place] [facility] [address] [id number] [address]- 6539 Dec, [facility] [place] [facility] [address] [id number] [address]- 8709 Dec, [facility] [place] [facility] [address] [id number] [place] [address]- 6366 Nov, [facility] [place] [facility] [address] [id number] [place] [address]- 1398 Nov, [facility] [place] [facility] [address] [id number] [place] [address] 2546 Nov, [facility] [place] [facility] [address] [id number] [place] [address]- 3425 03 Oct, 2011 [facility] [address] [id number] [place] [address]- 9579 31 Sep, 2011 [facility] [place] [facility] [address] [id number] [place] [address] 2546 26 Sep, 2011 [facility] [place] [facility] [address] [id number] [place] [address]- 1716 13 Sep, 2011 [facility] [place] [facility] [address] [id number] [place] [address] 2547 15 Nov, 2010 [facility] [place] [facility] [address] [id number] [place] [address]- 2553 23 Oct, 2010 [facility] [place] [facility] [address] [id number] [place] [address]- 4109 Oct, [facility] [place] [facility] [address] [id number] [place] [address]- 7025 18 Oct, 2010 [facility] [place] [facility] [address] [id number] [place] [address]- 2824 16 Oct, 2010 [facility] [place] [facility] [address] [id number] [place] [address]- 5831 Sep, [facility] [place] [facility] [address] [id number] [place] [address]- 7080 April, [facility] [place] [facility] [address] [id number] [place] [address] 2548 29 Nov, 2009 [facility] [place] [facility] [address] [id number] [place] [address]- 2540 24 Nov, 2009 [facility] [place] [facility] [address] [id number] [place] [address] 2543 22 Nov, 2009 [facility] [place] [facility] [address] [id number] [place] [address]- 2540 10 Nov, 2009 [facility] [place] [facility] [address] [id number] [place] [address] 2546 Nov, [facility] [address] [facility] [id number] [place] [address]- 7767 Oct, [facility] [address] [facility] [id number] [address]- 5336 Oct, [facility] [address] [facility] [id number] [place] [address]- 0435 Sep, [facility] [address] [facility] [id number] [place] [address]- 7646 Jan, IMMUNIZATIONS No Known Immunizations SOCIAL HISTORY Never Assessed REASON FOR VISIT Routine visit PLAN OF CARE Activity Details Follow Up prn Reason: VITAL SIGNS MEDICATIONS Unknown Medications RESULTS No Results PROCEDURES Procedure Date Ordered Result Body Site Minor complication (15 mins) April 10, 2018 INSTRUCTIONS MEDICATIONS ADMINISTERED No Known Medications MEDICAL (GENERAL) HISTORY Type Description Date Medical History Hypertension Medical History Heart disease CABG X3 Stress test 07/2015 Medical History Gastric ulcer Medical History Hyperlipidemia Medical History Headache syndrome Medical History Psychiatric disorders-depression/racing thoughts Medical History Depression Medical History At [facility] 04/2016 Started on Eliquis Medical History Anemia 04/2016 postsurgical hip fx Surgical History right hip replacement w/ Dr. Bruce 2011 Surgical History triple bypass surgery 2003 Surgical History S/P left hip IM Nail (Intertrechanteric hip fx) 04/28/16 Hospitalization History surgeries Hospitalization History Hypertension Hospitalization History ER for a concussion 11/24/15 Hospitalization History Intertrechanteric hip fx 04/27/16 Hospitalization History [facility] (inpatient [facility] 2 times) Hx of 3 inpatient psych treatments in past in [place] oct 2016 [facility]
--- OUTSIDE RECORDS SUMMARY | 2018-08-20 13:01 | XMS REPORT ---
Author Author WOLF AGUIRRE [facility] Address [address] [place] [address] Care Team Providers Care Bulb Brander Name Role Phone WOLF AGUIRRE Unavailable PROBLEMS Type Condition ICD9-CM Code HCZ16-UY Code Onset Dates Condition Status SNOMED Code Problem Sundowning F05 Active [id number] Problem Constipation, unspecified constipation type K59.00 Active 70338854 Problem Reactive depression F32.9 Active 55183254 Problem Vascular dementia with behavior disturbance F01.51 Active 729863668214296 Problem Insomnia, unspecified type G47.00 Active 751267583 Problem Generalized anxiety disorder F41.1 Active 16049780 Problem Other chronic pain G89.29 Active 28810317 Problem Severe episode of recurrent major depressive disorder, without psychotic features F33.2 Active 28932836 Problem Slow transit constipation K59.01 Active 16848513 Problem 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 Active 536902994 Problem Obsessive thinking F42.8 Active 64161122 Problem Failure to thrive in adult R62.7 Active 640436244 Problem Dysthymic disorder F34.1 Active 86266084 Problem Hypertension I10 Active 91230458 Problem Mood disorder F39 Active 90666998 Problem Irritable bowel syndrome with diarrhea K58.0 Active 604066456 Problem Oropharyngeal dysphagia R13.12 Active 13614153 Problem 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 Active 19917984 Problem Other chronic pain G89.29 Active 63361457 Problem Primary insomnia F51.01 Active 7545163 Problem Poor appetite R63.0 Active 42774988 Problem Atherosclerotic heart disease of [place] 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 Active 945747137677323 Problem Iron deficiency anemia secondary to inadequate dietary iron intake D50.8 Active 229184140 Problem Coarse tremors G25.2 Active 59505978 Problem Gastroesophageal reflux disease without esophagitis K21.9 Active 396167077 Problem Essential hypertension I10 Active 12089882 ALLERGIES No Information ENCOUNTERS Encounter Location Date Diagnosis [facility] [facility] [address] [address] Jun, [facility] [facility] [id number] [place] [address] 56983- 9631 Jun, [facility] [place] [id number] Jun, Left lower quadrant pain R10.32 and Left leg pain M79.605 [facility] [place] [facility] [id number] [place] [address] 64846- 9884 Jun, [facility] [address] [place] [id number] Jun, Pain in left hip M25.552 ; Pain in right hip M25.551 and Primary insomnia F51.01 [place] [facility] [id number] [place] [address] 59357- 2946 Jun, [facility] [address] [place] [id number] May, [facility] [place] [facility] [id number] [place] [address] 43386- 2832 May, [place] [id number] [place] [address] 23332- 9812 May, [facility] [address] [id number] May, Mood disorder F39 [place] [facility] [id number] [place] [address] 10578- 1218 May, [facility] [place] [facility] [address], [place] [address] April, [facility] [place] [id number] April, Generalized anxiety disorder F41.1 ; Obsessive thinking F42.8 and Insomnia , unspecified type G47.00 [facility] [place] [facility] [address], [place] [address] 69[address] April, [facility] [address], [place] [address] 4975 April, Rash of face R21 [place] [facility] [id number] [place] [address] 51160- 1105 Mar, [place] [facility] [address], [place] [address] 1265 Mar, [place] [id number] [place] [address] 05609- 2254 Mar, [place] [id number] [place] [address] 05682- 0345 Jan, [place] [facility] [id number] [place] [address] 41317- 3024 Jan, [facility] [address] [id number] Jan, Constipation, unspecified constipation type K59.00 and Other chronic pain G89.29 [place] [id number] [place] [address] 67728- 3823 Jan, [facility] [place] [id number] Jan, Obsessive thinking F42.8 and Coarse tremors G25.2 [place] [id number] [place] [id number] Jan, [facility] [facility] [id number] [place] [address] [id number] Jan, [facility] [address] [place] [id number] Jan, Generalized anxiety disorder F41.1 ; Obsessive thinking F42.8 ; Callus of foot L84 and 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 [place] [address], [place] [address] 46[address] Dec, Generalized anxiety disorder F41.1 and Severe episode of recurrent major depressive disorder, without psychotic features F33.2 [facility] [id number] [address] 4046 Nov, [facility] [place] [facility] [id number] [place] [address] 308000- 3874 Nov, [facility] [address] [place] [id number] Nov, Oropharyngeal dysphagia R13.12 ; Generalized anxiety disorder F41.1 and 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 [facility] [place] [facility] [id number] [place] [address] 48036- 9850 Nov, [facility] [id number] [place] [address] [id number] Nov, [facility] [id number] [place] [address] 74134- 5366 Nov, [facility] [id number] [place] [address] 69789- 3980 Nov, [facility] [id number] [place] [address] 49904- 5775 Oct, Constipation, unspecified constipation type K59.00 and Mood disorder F39 [facility] [place] [facility] [id number] [place] [address] 19882- 7590 Oct, [facility] [id number] [id number] Sep, [facility] [id number] [address] Sep, [facility] [id number] [place] [address] [id number] Sep, [facility] [id number] [id number] Sep, [facility] [address] [place] [id number] Sep, Generalized abdominal pain R10.84 [facility] [address], [place] [address] 25[address] Sep, [facility] [id number] [address] Sep, Generalized anxiety disorder F41.1 and Primary insomnia F51.01 [facility] [id number] [id number] Aug, [facility] [id number] [address] Aug, Generalized anxiety disorder F41.1 [facility] [place] [facility] [address] [place] [address] 11072- 1316 Jul, [facility] [address] [place] [id number] Jul, Obsessive thinking F42.8 [facility] [place] [facility] [address] [place] [address] 51765- 6656 Jul, Generalized anxiety disorder F41.1 and Irritable bowel syndrome with diarrhea K58.0 [facility] [id number] [place] [address] [id number] Jul, Generalized anxiety disorder F41.1 [facility] [id number] [place] [address] [id number] Jun, Generalized anxiety disorder F41.1 [facility] [facility] [id number] [place] [address] 36735135- 0589 May, [facility] [address] [place] [id number] May, Generalized anxiety disorder F41.1 ; Irritable bowel syndrome with diarrhea K58.0 and Coarse tremors G25.2 [facility] [facility] [address], [place] [address] 2219 April, [facility] [facility] [id number] [place] [address] 79227- 6072 April, [facility] [place] [facility] [address] [address] 6[address] April, [facility] [place] [facility] [address] [address] 6272 Mar, [facility] [address] [place] [id number] Mar, Severe episode of recurrent major depressive disorder, without psychotic features F33.2 and Pain in left hip M25.552 [facility] [facility] [address] [place] [address] 81073- 4929 Mar, [facility] [facility] [id number] [place] [address] 05059- 1440 Mar, [facility] [facility] [id number] [place] [address] 36767- 2054 Mar, [place] [facility] [id number] [place] [address] 14687- 6361 Mar, Pain in right hip M25.551 and Self-care deficit in patient living alone R46.89 [facility] [id number] [place] [address] 37917 -3018 Jan, Other chronic pain G89.29 ; Pain in left hip M25.552 and Slow transit constipation K59.01 [place] [id number] [place] [address] 23445- 2519 Jan, [place] [facility] [id number] [place] [address] 29278- 3226 Dec, Other depression F32.89 ; Constipation, unspecified constipation type K59.00 and Insomnia, unspecified type G47.00 [place] [address] [place] [address] 91357- 0076 Nov, Reactive depression F32.9 ; Chronic idiopathic constipation K59.04 ; Generalized anxiety disorder F41.1 ; Coarse tremors G25.2 ; Gastroesophageal reflux disease without esophagitis K21.9 ; Dysthymic disorder F34.1 ; Vitamin deficiency, unspecified E56.9 and Primary insomnia F51.01 [place] [id number] [place] [address] 07064- 5273 Nov, [place] [id number] [place] [address] 55816- 5872 Nov, [facility] [facility] [id number] [place] [address] 70922- 2131 Nov, [place] [address] 34871- 5228 Nov, Reactive depression F32.9 ; Essential hypertension I10 ; Generalized anxiety disorder F41.1 ; Atherosclerotic heart disease of [place] 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 ; Pain in right hip M25.551 ; Other chronic pain G89.29 ; Chronic idiopathic constipation K59.04 ; Primary insomnia F51.01 ; Coarse tremors G25.2 ; Gastroesophageal reflux disease without esophagitis K21.9 ; Iron deficiency anemia secondary to inadequate dietary iron intake D50.8 and Vitamin deficiency, unspecified E56.9 [place] [id number] [place] [address] 48593- 8822 Oct, [place] [address] 57224- 7056 Oct, [place] [id number] [place] [address] 32114- 4363 Oct, [place] [facility] [address] 27596- 4827 16 Oct, 2016 Generalized anxiety disorder F41.1 ; Poor appetite R63.0 ; Dehydration E86.0 and Failure to thrive in adult R62.7 [place] [id number] [place] [address] 69508- 8237 07 Oct, 2016 Generalized anxiety disorder F41.1 and Failure to thrive in adult R62.7 [place] [id number] [place] [address] 23085- 9667 Oct, [place] [address] 56184- 3432 Oct, [facility] [id number] [place] [address] 44702 -6055 Sep, Vaginal discharge N89.8 and Acute cystitis with hematuria N30.01 [facility] [facility] [address], [place] [address]- 1720 Sep, [facility] [id number] [place] [address] 82456- 1828 Sep, [facility] [facility] [id number] [place] [address] 45608- 0277 Sep, Dysthymic disorder F34.1 ; Acute vaginitis N76.0 ; Dysuria R30.0 and Vaginal yeast infection B37.3 [place] [id number] [place] [address] 79691- 8220 Aug, [place] [id number] [place] [address] 03052- 9906 Aug, [facility] [id number] [place] [address] 54776 -6805 Aug, Foul smelling urine R82.90 ; Rapid heart rate R00.0 and Flatulence R14.3 [place] [id number] [place] [address] 57800- 6609 Aug, [place] [id number] [place] [address] 61878- 4680 Jul, Constipation, unspecified constipation type K59.00 ; Weak R53.1 ; Poor appetite R63.0 ; Coronary artery disease involving [place] heart without angina pectoris, unspecified vessel or lesion type I25.10 ; Fatigue, unspecified type R53.83 ; Urinary incontinence, unspecified type R32 and Insomnia, unspecified type G47.00 [place] [id number] [place] [address] 48650- 1310 Jul, [place] [id number] [place] [address] 92909- 9228 Jun, Dysuria R30.0 [place] [id number] [place] [address] 75154- 7377 Jun, [facility] [facility] [address] [place] [address] 30369- 2117 Jun, Urinary tract infection, site not specified N39.0 ; Acute vaginitis N76.0 and Diarrhea, unspecified type R19.7 [facility] [address], [place] [address]- 7596 May, [facility] [facility] [id number] [place] [address] 36669- 4169 April, [facility] [id number] [place] [address] [id number] April, Encounter for dental examination Z01.20 [facility] [id number] [place] [address] 42270- 8956 April, [facility] [facility] [id number] [place] [address] 68482- 2323 April, Tremor R25.1 and Episodic tension-type headache, not intractable G44.219 [facility] [facility] [id number] [place] [address] 29347- 7604 Mar, [facility] [facility] [id number] [place] [address] 76795- 4515 Jan, Mood disorder F39 [facility] [id number] [place] [address] 50362 -8243 Jan, [facility] [facility] [id number] [place] [address] 27052- 2622 Jan, [facility] [facility] [address] [place] [address] 85576- 4031 Jan, [facility] [facility] [id number] [place] [address] 43805- 6025 Jan, [facility] [facility] [address], [place] [address]- 9487 Jan, [facility] [facility] [id number] [place] [address] 69659- 2348 Jan, [facility] [id number] [place] [address] 44000 -3487 Dec, Acute diarrhea R19.7 [facility] [facility] [id number] [place] [address] 04935- 2388 Dec, [facility] [facility] [id number] [place] [address] 19875- 5499 Dec, [facility] [facility] [id number] [place] [address] 88587- 4792 Dec, [facility] [id number] [place] [address] 52411 -9469 Dec, N&V (nausea and vomiting) R11.2 [facility] [facility] [id number] [place] [address] 65194- 1373 Dec, Generalized anxiety disorder F41.1 [facility] [facility] [address] 69496- 9619 Dec, Generalized anxiety disorder F41.1 [facility] [facility] [id number] [place] [address] 81927- 6376 Nov, Post concussion syndrome F07.81 [facility] [facility] [id number] [place] [address] 32024- 9397 Nov, Generalized anxiety disorder F41.1 [facility] [facility] [id number] [place] [address] 03810- 7623 Nov, [facility] [facility] [id number] [place] [address] 65656- 8377 Nov, Generalized anxiety disorder F41.1 [facility] [id number] [place] [address] [id number] Oct, Dental caries K02.9 [facility] [facility] [id number] [place] [address] 59626- 3516 Oct, [facility] [address] [place] [id number] Oct, Dental examination Z01.20 [facility] [address] [place] [address] [id number] 10 Oct, 2015 Encounter for dental examination Z01.20 [facility] [facility] [id number] [place] [address] 66484- 1896 09 Oct, 2015 CAD (coronary artery disease) I25.10 [facility] [facility] [address] 64286- 2473 Sep, Generalized anxiety disorder F41.1 [facility] [facility] [id number] [place] [address] 88055- 1740 Sep, [facility] [facility] [id number] [place] [address] 80328- 8609 Sep, Rash and other nonspecific skin eruption R21 and Yeast vaginitis B37.3 [facility] [facility] [id number] [place] [address] 20962- 1291 Sep, Generalized anxiety disorder F41.1 [facility] [facility] [id number] [place] [address] 11061- 8273 Aug, Insect bites 919.4 and Hemorrhoids 455.6 [facility] [facility] [id number] [place] [address] 88861- 6265 Aug, Generalized anxiety disorder 300.02 [facility] [facility] [id number] [place] [address] 60592- 7704 08 Aug, 2015 [facility] [facility] [id number] [place] [address] 34641- 9299 Aug, [facility] [facility] [address] 40882- 3412 Aug, Generalized anxiety disorder 300.02 ; No condition on [facility] V71.09 ; Heart problem 429.9 and Hypertension 401.9 [facility] [facility] [id number] [place] [address] 11047- 4054 Aug, [place] [address] [facility] [id number] [address]- 1216 Jul, [facility] [facility] [address], [place] [address]- 8883 Jul, [facility] [facility] [address], [place] [address]- 2799 Jul, [facility] [facility] [address], [place] [address]- 3267 Jul, [facility] [facility] [id number], [place] [address]- 5003 Jul, Rash 782.1 [facility] [place] [facility] [address], [place] [address]- 0129 Jul, UTI (urinary tract infection) 599.0 [facility] [place] [facility] [address], [place] [address]- 7590 Jul, [facility] [facility] [address], [place] [address]- 8284 Jun, Dysthymia 300.4 and Anxiety 300.00 [facility] [place] [facility] [address], [place] [address]- 5040 Jun, 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 [facility] [place] [facility] [id number], [place] [address]- 8354 May, [facility] [place] [facility] [id number], [place] [address]- 7232 May, [facility] [place] [facility] [id number], [place] [address]- 7906 May, Unspecified breast screening V76.10 [facility] [address] [id number] [address] May, Dental examination V72.2 [facility] [place] [facility] [address] [id number], [place] [address]- 8899 April, [facility] [place] [facility] [address] [address] 2546 April, [facility] [address] [id number] [id number] April, Dental examination V72.2 [facility] [place] [facility] [address] [id number] [place] [id number] April, Dental examination V72.2 [facility] [address] [id number] [place] [address]- 1076 14 Mar, 2015 [facility] [address] [id number] [place] [address] 2540 Mar, [facility] [address] [id number] [place] [address]- 3906 25 Jan, 2015 [facility] [address] [id number] [place] [address]- 6160 25 Jan, 2015 [facility] [address] [id number] [place] [address]- 3194 18 Jan, 2015 [facility] [address] [id number] [place]- 3949 18 Jan, 2015 [facility] [address] [id number][place]- 0819 16 Jan, 2015 [facility] [place] [facility] [address] [id number] [place]- 3929 16 Jan, 2015 [facility] [place] [facility] [address] [id number]- 2427 13 Jan, 2015 [facility] [place] [facility] [address] [id number] [place] [address]- 9676 13 Jan, 2015 [facility] [place] [facility] [address] [id number] [place] [address]- 3922 11 Jan, 2015 [facility] [place] [facility] [address] [id number], [place] [address]- 6676 11 Jan, 2015 [facility] [place] [facility] [address] [id number][place] [address]- 3306 Jan, [facility] [place] [facility] [address] [id number] [place] [address] Jan, [facility] [place] [facility] [address] [id number] [place] [address] Jan, [facility] [place] [facility] [address] [facility] [id number] [place] [address] Jan, [facility] [place] [facility] [address] [id number] [place] [address] Jan, 2014 [facility] [place] [facility] [address] [id number] [place] [address] Jan, [facility] [place] [facility] [address] [facility] [id number] [place] [address] Jan, [facility] [place] [facility] [address] [facility] [id number] [place] [address] Jan, [facility] [place] [facility] [address] [facility] [id number] [place] [address] Jan, [facility] [place] [facility] [address] [facility] [id number] [place] [address] Jan, [facility] [place] [facility] [address] [facility] [id number] [place] [address] Jan, [facility] [place] [facility] [address] [facility] [id number] [place] [address] Jan, [facility] [place] [facility] [address] [facility] [id number], [place] [address] Dec, [facility] [place] [facility] [address] [id number] [place] [address] Dec, [facility] [place] [facility] [address] [facility] [id number] [place] [address] Dec, [facility] [place] [facility] [address] [facility] [id number], [place] [address] Dec, [facility] [place] [facility] [address] [id number] [place] [address] Nov, [facility] [place] [facility] [address] [id number] [place] [address] Nov, [facility] [place] [facility] [address] [id number] [place] [address] Nov, [facility] [place] [facility] [address] [id number] [place] [address] Nov, [facility] [place] [facility] [address] [id number] [place] [address] Nov, [facility] [place] [facility] [address] [id number] [place] [address] Nov, [facility] [place] [facility] [address] [id number] [place] [address] Nov, [facility] [place] [facility] [address] [id number] [place] [address] Oct, [facility] [place] [facility] [address] [id number] [place] [address] Oct, [facility] [place] [facility] [address] [id number] [place] [address] Oct, [facility] [place] [facility] [address] [id number] [place] [address] 1409 Oct, [facility] [place] [facility] [address] [id number] [place] [address] 1581 Oct, [facility] [place] [facility] [address] [id number] [place] [address] 1362 Oct, [facility] [place] [facility] [address] [id number] [place] [address] Oct, [facility] [place] [facility] [address] [id number] [place] [address] 1652 Oct, [facility] [place] [facility] [address] [id number] [place] [address] 3364 Oct, [facility] [place] [facility] [address] [id number] [place] [address] 7404 Oct, [facility] [place] [facility] [address] [id number] [place] [address] 2385 Oct, [facility] [place] [facility] [address] [id number] [place] [address] 8130 Oct, [facility] [place] [facility] [address] [id number] [place] [address] 0[address] Sep, [facility] [place] [facility] [address] [id number] [place] [address] 5925 Sep, [facility] [place] [facility] [address] [id number] [place] [address] 8[address] Sep, [facility] [place] [facility] [address] [id number] [place] [address]- 2739 Sep, [facility] [place] [facility] [address] [id number] [place] [address] 6624 Jul, [facility] [place] [facility] [address] [id number] [place] [address] 7794 Jul, [facility] [place] [facility] [address] [id number] [place] [address]- 3340 Jul, [facility] [place] [facility] [address] [id number] [place] [address]- 2713 Jul, [facility] [place] [facility] [address] [id number] [place] [address]- 2858 Jun, [facility] [place] [facility] [address] [id number] [place] [address]- 68[address] Jun, [facility] [place] [facility] [address] [id number] [place] [address]- 0938 Jun, [facility] [place] [facility] [address] [id number] [place] [address] 3458 Jun, [facility] [place] [facility] [address] [id number] [place] [address] 7[address] May, [facility] [address] [id number] [place] [address] 4602 May, [facility] [address] [id number] [place] [address] 6514 April, [facility] [address] [id number] [place] [address] 6239 April, [facility] [address] [id number] [place] [address] 8339 April, [facility] [address] [id number] [place] [address]- 9265 April, [facility] [address] [id number] [place] [address] 0627 April, [facility] [address] [id number] [place] [address] 8820 April, [facility] [address] [id number] [place] [address] 1966 April, [facility] [address] [id number] [place] [address] 1652 April, [facility] [address] [id number] [place] [address]- 0838 April, [facility] [address] [id number] [place] [address] 8367 Mar, [facility] [address] [id number] [place] [address]- 7752 Mar, [facility] [place] [facility] [address] [id number] [place] [address] 9595 Mar, [facility] [place] [facility] [address] [id number] [place] [address]- 5696 Mar, [facility] [address] [id number] [place] [address]- 8584 Jan, [facility] [place] [facility] [address] [id number] [place] [address]- 5192 Jan, [facility] [place] [facility] [address] [id number] [place] [address]- 3635 Jan, [facility] [place] [facility] [address] [id number] [place] [address]- 0728 Jan, [facility] [place] [facility] [address] [id number] [place] [address] 8927 Jan, [facility] [place] [facility] [address] [id number] [place] [address]- 2269 Jan, [facility] [place] [facility] [address] [id number] [place] [address]- 5332 Jan, [facility] [place] [facility] [address] [id number] [place] [address]- 4240 Jan, [facility] [place] [facility] [address] [id number] [place] [address]- 4912 Jan, [facility] [place] [facility] [address] [id number] [place] [address]- 3525 Jan, [facility] [place] [facility] [address] [id number] [place] [address]- 9308 Jan, [facility] [place] [facility] [address] [id number] [place] [address]- 2210 Jan, [facility] [place] [facility] [address] [id number] [place] [address]- 8832 Dec, [facility] [place] [facility] [address] [id number] [place] [address]- 4549 Dec, [facility] [place] [facility] [address] [id number] [place] [address]- 3442 Dec, [facility] [place] [facility] [address] [id number] [place] [address]- 7211 Dec, [facility] [place] [facility] [address] [id number] [place] [address]- 8446 Nov, [facility] [address] [id number] [place] [address]- 5407 Nov, [facility] [place] [facility] [address] [id number] [place] [address]- 2766 Nov, [facility] [place] [facility] [address] [id number] [place] [address]- 2221 Nov, [facility] [place] [facility] [address] [id number] [place] [address] 6773 Oct, [facility] [place] [facility] [address] [id number] [place] [address] 4365 Oct, [facility] [place] [facility] [address] [id number] [place] [address]- 1021 Sep, [facility] [place] [facility] [address] [id number] [place] [address]- 8148 Sep, [facility] [place] [facility] [address] [id number] [place] [address] 1985 Jul, [facility] [place] [facility] [address] [id number] [place] [address]- 3126 Jul, [facility] [place] [facility] [address] [facility] [id number] [place] [address]- 2626 Jun, [facility] [place] [facility] [address] [id number] [place] [address]- 1154 Jun, [facility] [place] [facility] [address] [id number] [place] [address]- 1818 Jun, [facility] [place] [facility] [address] [id number] [place] [address]- 8974 May, [facility] [place] [facility] [address] [id number] [place] [address]- 2554 May, [facility] [place] [facility] [address] [id number] [place] [address]- 1295 May, [facility] [place] [facility] [address] [id number] [place] [address]- 4945 May, [facility] [address] [id number] [place] [address]- 1370 May, [facility] [address] [id number] [place] [address]- 6179 April, [facility] [address] [id number] [place] [address]- 2054 April, [facility] [address] [id number] [place] [address] 1930 April, [facility] [address] [id number] [place] [address]- 8893 April, [facility] [address] [id number] [place] [address]- 1173 April, [facility] [address] [id number] [place] [address]- 8675 April, [facility] [address] [id number] [place] [address]- 0808 Mar, [facility] [address] [id number] [place] [address]- 4130 Mar, [facility] [address] [id number] [place] [address]- 4373 Jan, [facility] [address] [id number] [place] [address]- 4740 Jan, [facility] [address] [id number] [place] [address]- 0094 Jan, [facility] [place] [facility] [address] [id number] [place] [address]- 2939 Jan, [facility] [place] [facility] [address] [id number] [place] [address]- 6558 Jan, [facility] [place] [facility] [address] [id number] [place] [address]- 8645 Jan, 2012 [facility] [address] [id number] [place] [address]- 2846 05 Jan, 2012 [facility] [address] [id number] [place] [address] 2546 04 Jan, 2012 [facility] [address] [id number] [place] [address]- 1446 Jan, 2012 [facility] [address] [id number] [place] [address]- 7349 Jan, 2012 [facility] [address] [id number] [place] [address]- 2095 Jan, [facility] [address] [id number] [place] [address]- 2895 Dec, [facility] [address] [id number] [place] [address]- 5861 Nov, [facility] [address] [id number] [place] [address]- 2548 Nov, [facility] [address] [id number] [place] [address]- 8547 Nov, [facility] [address] [facility] [id number] [place] [address]- 5854 Nov, [facility] [address] [id number] [place] [address] 2541 Nov, [facility] [address] [id number] [place] [address] 2546 Nov, [facility] [address] [id number] [place] [address] 254 Nov, [facility] [address] [id number] [place] [address]- 2540 Nov, [facility] [address] [id number] [place] [address]- 2549 Nov, [facility] [place] [facility] [address] [id number] [place] [address]- 6904 18 Nov, 2012 [facility] [place] [facility] [address] [id number] [place] [address] 18 Nov, 2012 [facility] [place] [facility] [address] [id number] [place] [address] Nov, [facility] [place] [facility] [address] [id number] [place] [address]- 9156 Nov, [facility] [place] [facility] [address] [id number] [place] [address]- 6128 17 Oct, 2012 [facility] [place] [facility] [address] [id number] [place] [address]- 3650 Oct, [facility] [place] [facility] [address] [id number] [place] [address]16 Oct, [facility] [place] [facility] [address] [id number] [place] [address]- 2137 Sep, [facility] [place] [facility] [address] [id number] [place] [address]- 0632 Sep, [facility] [place] [facility] [address] [id number] [place] [address]- 6073 10 Sep, 2012 [facility] [place] [facility] [address] [facility] [id number] [place] [address]- 7061 10 Sep, 2012 [facility] [place] [facility] [address] [id number] [place] [address]- 9955 27 Aug, 2012 [facility] [place] [facility] [address] [id number] [place] [address]- 5976 20 Aug, 2012 [facility] [place] [facility] [address] [id number] [place] [address]- 8446 24 Jul, 2012 [facility] [place] [facility] [address] [id number] [place] [address] 2546 27 May, 2012 [facility] [place] [facility] [address] [id number] [place] [address]- 0575 14 May, 2012 [facility] [address] [id number] [place] [address]- 6013 14 May, 2012 [facility] [place] [facility] [address] [id number] [place] [address]- 1714 April, [facility] [place] [facility] [address] [id number] [place] [address]- 7682 Mar, [facility] [place] [facility] [address] [id number] [place] [address]- 3607 Mar, [facility] [place] [facility] [address] [id number] [place] [address]- 9976 Mar, [facility] [place] [facility] [address] [id number] [place] [address]- 7878 Jan, [facility] [place] [facility] [address] [id number] [place] [address]- 0266 Jan, [facility] [place] [facility] [address] [id number] [place] [address]- 4772 Jan, [facility] [place] [facility] [address] [id number] [place] [address]- 8445 Dec, [facility] [place] [facility] [address] [id number] [place] [address]- 9256 Dec, [facility] [place] [facility] [address] [id number], [place] [address]- 5274 Dec, [facility] [place] [facility] [address] [id number], [place] [address]- 8039 Dec, [facility] [place] [facility] [address] [id number] [place] [address]- 1722 Nov, [facility] [place] [facility] [address] [id number] [place] [address]- 8780 Nov, [facility] [place] [facility] [address] [id number] [place] [address] 2546 Nov, [facility] [place] [facility] [address] [id number] [place] [address]- 2909 03 Oct, 2011 [facility] [address] [id number] [place] [address]- 1974 31 Sep, 2011 [facility] [place] [facility] [address] [id number] [place] [address] 2546 26 Sep, 2011 [facility] [place] [facility] [address] [id number] [place] [address]- 4516 13 Sep, 2011 [facility] [place] [facility] [address] [id number] [place] [address] 2542 15 Nov, 2010 [facility] [place] [facility] [address] [id number] [place] [address]- 2428 23 Oct, 2010 [facility] [place] [facility] [address] [id number] [place] [address]- 3762 Oct, [facility] [place] [facility] [address] [id number] [place] [address]- 5449 18 Oct, 2010 [facility] [place] [facility] [address] [id number] [place] [address]- 1708 16 Oct, 2010 [facility] [place] [facility] [address] [id number] [place] [address]- 6338 Sep, [facility] [place] [facility] [address] [id number] [place] [address]- 1211 April, [facility] [place] [facility] [address] [id number] [place] [address] 2547 29 Nov, 2009 [facility] [place] [facility] [address] [id number] [place] [address]- 2542 24 Nov, 2009 [facility] [place] [facility] [address] [id number] [place] [address] 254 22 Nov, 2009 [facility] [place] [facility] [address] [id number] [place] [address]- 2544 10 Nov, 2009 [facility] [place] [facility] [address] [id number] [place] [address] 2546 Nov, [facility] [place] [facility] [address] [facility] [id number] [place] [address]- 1747 Oct, [facility] [place] [facility] [address] [facility] [id number], [place] [address]- 4786 Oct, [facility] [place] [facility] [address] [facility] [id number], [place] [address]- 8414 Sep, [facility] [place] [facility] [address] [facility] [id number], [place] [address]- 6536 Jan, IMMUNIZATIONS No Known Immunizations SOCIAL HISTORY [...] 3 inpatient psych treatments in past in [place] oct 2016 Hospitalization History medical lodge Nov 2016
--- OUTSIDE RECORDS SUMMARY | 2018-08-20 13:01 | XMS REPORT ---
Author Author WOLF AGUIRRE [facility] Address [address] [place] [address] Care Team Providers Care Medical Director Occupational Health Name Role Phone WOLF AGUIRRE Unavailable PROBLEMS Type Condition ICD9-CM Code MDW21-IP Code Onset Dates Condition Status SNOMED Code Problem Sundowning F05 Active 005295869 Problem Constipation, unspecified constipation type K59.00 Active 81740325 Problem Reactive depression F32.9 Active 30829145 Problem Vascular dementia with behavior disturbance F01.51 Active 584292860561639 Problem Insomnia, unspecified type G47.00 Active 432327986 Problem Generalized anxiety disorder F41.1 Active 09140165 Problem Other chronic pain G89.29 Active 76918244 Problem Severe episode of recurrent major depressive disorder, without psychotic features F33.2 Active 57779532 Problem Slow transit constipation K59.01 Active 51059768 Problem 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 Active 930611312 Problem Obsessive thinking F42.8 Active 86148903 Problem Failure to thrive in adult R62.7 Active 563760981 Problem Dysthymic disorder F34.1 Active 28638747 Problem Hypertension I10 Active 38992125 Problem Mood disorder F39 Active 18444573 Problem Irritable bowel syndrome with diarrhea K58.0 Active 141760826 Problem Oropharyngeal dysphagia R13.12 Active 62838584 Problem 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 Active 44886345 Problem Other chronic pain G89.29 Active 52654805 Problem Primary insomnia F51.01 Active 5249024 Problem Poor appetite R63.0 Active 29229313 Problem 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 Active 407976979827723 Problem Iron deficiency anemia secondary to inadequate dietary iron intake D50.8 Active 178857549 Problem Coarse tremors G25.2 Active 10066562 Problem Gastroesophageal reflux disease without esophagitis K21.9 Active 201875499 Problem Essential hypertension I10 Active 47498827 ALLERGIES No Information ENCOUNTERS Encounter Location Date Diagnosis [facility] [id number], [place] [address] Jun, [facility] [id number] [place] [address] 74908- 2632 Jun, [facility] [address] [place] [id number] Jun, Left lower quadrant pain R10.32 and Left leg pain M79.605 [facility] [id number] [place] [address] 88009- 0472 Jun, [facility] [address] [place] [id number] Jun, Pain in left hip M25.552 ; Pain in right hip M25.551 and Primary insomnia F51.01 [facility] [id number] [place] [address] 08421- 6617 Jun, [facility] [address] [place] [id number] May, [facility] [id number] [place] [address] 99643- 5303 May, [facility] [id number] [place] [address] 63985- 4594 May, [facility] [address] [id number] May, Mood disorder F39 [facility] [id number] [place] [address] 16194- 9910 May, [facility] [id number], [place] [address] April, [facility] [address] [place] [id number] April, Generalized anxiety disorder F41.1 ; Obsessive thinking F42.8 and Insomnia , unspecified type G47.00 [facility] [id number], [place] [address] April, [facility] [id number], [place] [address] 7948 April, Rash of face R21 [facility] [id number] [place] [address] 06275- 8527 Mar, [facility] [address], [place] [address] 5580 Mar, [facility] [id number] [place] [address] 18311- 8264 Mar, [facility] [id number] [place] [address] 57055- 0927 Jan, [facility] [id number] [place] [address] 05937- 4012 Jan, [facility] [address] [id number] Jan, Constipation, unspecified constipation type K59.00 and Other chronic pain G89.29 [facility] [id number] [place] [address] 28332- 2394 Jan, [facility] [address] [place] [id number] Jan, Obsessive thinking F42.8 and Coarse tremors G25.2 [facility] [facility] [id number] [place] [id number] Jan, [facility] [id number] [place] [address] [id number] Jan, [facility] [address] [place] [address] Jan, Generalized anxiety disorder F41.1 ; Obsessive thinking F42.8 ; Callus of foot L84 and 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 [facility] [id number], [place] [address] 7469 Dec, Generalized anxiety disorder F41.1 and Severe episode of recurrent major depressive disorder, without psychotic features F33.2 [facility] [id number] [address] 0956 Nov, [facility] [id number] [place] [address] 426914- 0994 Nov, [facility] [address] [place] [address] Nov, Oropharyngeal dysphagia R13.12 ; Generalized anxiety disorder F41.1 and 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 [facility] [id number] [place] [address] 81191- 3167 Nov, [facility] [id number] [place] [address] [id number] Nov, [facility] [id number] [place] [address] 72798- 4498 Nov, [facility] [id number] [place] [address] 09843- 5980 Nov, [facility] [id number] [place] [address] 54769- 8484 Oct, Constipation, unspecified constipation type K59.00 and Mood disorder F39 [facility] [id number] [place] [address] 47944- 2122 Oct, [facility] [id number] [id number] Sep, [facility] [id number] [id number] Sep, [facility] [id number] [place] [address] [id number] Sep, [facility] [id number] [id number] Sep, [facility] [address] [place] [address] Sep, Generalized abdominal pain R10.84 [facility] [id number], [place] [address] 25[address] Sep, [facility] [id number] [id number] Sep, Generalized anxiety disorder F41.1 and Primary insomnia F51.01 [facility] [id number] [id number] Aug, [facility] [id number] [id number] Aug, Generalized anxiety disorder F41.1 [facility] [id number] [place] [address] 53938- 3016 Jul, [facility] [address] [place] [id number] Jul, Obsessive thinking F42.8 [facility] [id number] [place] [address] 34363- 7856 Jul, Generalized anxiety disorder F41.1 and Irritable bowel syndrome with diarrhea K58.0 [facility] [id number] [place] [address] [id number] Jul, Generalized anxiety disorder F41.1 [facility] [id number] [place] [address] [id number] Jun, Generalized anxiety disorder F41.1 [facility] [id number] [place] [address] 12462108- 4598 May, [facility] [address] [place] [id number] May, Generalized anxiety disorder F41.1 ; Irritable bowel syndrome with diarrhea K58.0 and Coarse tremors G25.2 [facility] [address], [place] [address] 3533 April, [facility] [id number] [place] [address] 45400- 7432 April, [facility] [id number] [address] 7[address] April, [facility] [address] [address] 6795 Mar, [facility] [address] [place] [id number] Mar, Severe episode of recurrent major depressive disorder, without psychotic features F33.2 and Pain in left hip M25.552 [facility] [id number] [place] [address] 35809- 9980 Mar, [facility] [id number] [place] [address] 87586- 8210 Mar, [facility] [id number] [place] [address] 04348- 1953 Mar, [facility] [id number] [place] [address] 27760- 6708 Mar, Pain in right hip M25.551 and Self-care deficit in patient living alone R46.89 [facility] [id number] [place] [address] 58261 -6274 Jan, Other chronic pain G89.29 ; Pain in left hip M25.552 and Slow transit constipation K59.01 [place] [id number] [place] [address] 17264- 1508 Jan, [place] [id number] [place] [address] 40149- 1594 Dec, Other depression F32.89 ; Constipation, unspecified constipation type K59.00 and Insomnia, unspecified type G47.00 [place] [id number] [place] [address] 44668- 1750 Nov, Reactive depression F32.9 ; Chronic idiopathic constipation K59.04 ; Generalized anxiety disorder F41.1 ; Coarse tremors G25.2 ; Gastroesophageal reflux disease without esophagitis K21.9 ; Dysthymic disorder F34.1 ; Vitamin deficiency, unspecified E56.9 and Primary insomnia F51.01 [place] [id number] [place] [address] 21320- 3398 Nov, [place] [id number] [place] [address] 97298- 8894 Nov, [facility] [id number] [place] [address] 25667- 4939 Nov, [place] [facility] [address] 02884- 6074 Nov, Reactive depression F32.9 ; Essential hypertension I10 ; Generalized anxiety disorder F41.1 ; 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 ; Pain in right hip M25.551 ; Other chronic pain G89.29 ; Chronic idiopathic constipation K59.04 ; Primary insomnia F51.01 ; Coarse tremors G25.2 ; Gastroesophageal reflux disease without esophagitis K21.9 ; Iron deficiency anemia secondary to inadequate dietary iron intake D50.8 and Vitamin deficiency, unspecified E56.9 [place] [id number] [place] [address] 57505- 6285 Oct, [facility] [address] 97309- 3280 Oct, [facility] [id number] [place] [address] 85840- 1264 Oct, [place] [address] 69582- 7030 16 Oct, 2016 Generalized anxiety disorder F41.1 ; Poor appetite R63.0 ; Dehydration E86.0 and Failure to thrive in adult R62.7 [place] [id number] [place] [address] 77683- 7731 07 Oct, 2016 Generalized anxiety disorder F41.1 and Failure to thrive in adult R62.7 [place] [id number] [place] [address] 88955- 4646 Oct, [place] [facility] [address] 01928- 6959 Oct, [facility] [id number] [place] [address] 16909 -5528 Sep, Vaginal discharge N89.8 and Acute cystitis with hematuria N30.01 [facility] [address], [place] [address]- 3439 Sep, [facility] [id number] [place] [address] 62364- 3994 Sep, [facility] [id number] [place] [address] 71021- 5693 Sep, Dysthymic disorder F34.1 ; Acute vaginitis N76.0 ; Dysuria R30.0 and Vaginal yeast infection B37.3 [place] [facility] [id number] [place] [address] 42851- 9994 Aug, [place] [id number] [place] [address] 92185- 8716 Aug, [facility] [id number] [place] [address] 88825 -7516 Aug, Foul smelling urine R82.90 ; Rapid heart rate R00.0 and Flatulence R14.3 [place] [facility] [id number] [place] [address] 65467- 1548 Aug, [place] [facility] [id number] [place] [address] 90924- 7422 Jul, Constipation, unspecified constipation type K59.00 ; Weak R53.1 ; Poor appetite R63.0 ; Coronary artery disease involving soboba heart without angina pectoris, unspecified vessel or lesion type I25.10 ; Fatigue, unspecified type R53.83 ; Urinary incontinence, unspecified type R32 and Insomnia, unspecified type G47.00 [place] [facility] [id number] [place] [address] 90345- 2708 Jul, [place] [facility] [id number] [place] [address] 67953- 0250 Jun, Dysuria R30.0 [place] [id number] [place] [address] 20844- 3289 Jun, [facility] [id number] [place] [address] 04246- 9902 Jun, Urinary tract infection, site not specified N39.0 ; Acute vaginitis N76.0 and Diarrhea, unspecified type R19.7 [facility] [address], [place] [address]- 5370 May, [facility] [id number] [place] [address] 23259- 9050 April, [facility] [id number] [place] [address] [id number] April, Encounter for dental examination Z01.20 [facility] [id number] [place] [address] 09896- 0253 April, [facility] [id number] [place] [address] 57040- 2965 April, Tremor R25.1 and Episodic tension-type headache, not intractable G44.219 [facility] [id number] [place] [address] 40739- 4242 Mar, [facility] [id number] [place] [address] 30294- 8134 Jan, Mood disorder F39 [facility] [id number] [place] [address] 59963 -9470 Jan, [facility] [id number] [place] [address] 43691- 9754 Jan, [facility] [id number] [place] [address] 58377- 7393 Jan, [facility] [id number] [place] [address] 02549- 8903 Jan, [facility] [address], [place] [address]- 6416 Jan, [facility] [id number] [place] [address] 03083- 4537 Jan, [facility] [id number] [place] [address] 58105 -7578 Dec, Acute diarrhea R19.7 [facility] [id number] [place] [address] 96665- 1557 Dec, [facility] [id number] [place] [address] 59822- 8385 Dec, [facility] [id number] [place] [address] 91915- 4764 Dec, [facility] [id number] [place] [address] 36895 -1054 Dec, N&V (nausea and vomiting) R11.2 [facility] [id number] [place] [address] 96620- 7659 Dec, Generalized anxiety disorder F41.1 [facility] [address] 27736- 4298 Dec, Generalized anxiety disorder F41.1 [facility] [id number] [place] [address] 51888- 6005 Nov, Post concussion syndrome F07.81 [facility] [id number] [place] [address] 55432- 5545 Nov, Generalized anxiety disorder F41.1 [facility] [id number] [place] [address] 77334- 0048 Nov, [facility] [id number] [place] [address] 36665- 8455 Nov, Generalized anxiety disorder F41.1 [facility] [id number] [place] [address] [id number] Oct, Dental caries K02.9 [facility] [id number] [place] [address] 33024- 4166 Oct, [facility] [address] [place] [id number] Oct, Dental examination Z01.20 [facility] [address] [place] [address] [id number] 10 Oct, 2015 Encounter for dental examination Z01.20 [facility] [id number] [place] [address] 77606- 6866 09 Oct, 2015 CAD (coronary artery disease) I25.10 [facility] [address] 32829- 6315 Sep, Generalized anxiety disorder F41.1 [facility] [id number] [place] [address] 50959- 0280 Sep, [facility] [id number] [place] [address] 68560- 1977 Sep, Rash and other nonspecific skin eruption R21 and Yeast vaginitis B37.3 [facility] [id number] [place] [address] 24219- 8399 Sep, Generalized anxiety disorder F41.1 [facility] [id number] [place] [address] 98021- 5191 Aug, Insect bites 919.4 and Hemorrhoids 455.6 [facility] [id number] [place] [address] 06185- 8510 Aug, Generalized anxiety disorder 300.02 [facility] [id number] [place] [address] 15538- 8240 08 Aug, 2015 [facility] [id number] [place] [address] 93549- 8874 Aug, [facility] [address] 66977- 1503 Aug, Generalized anxiety disorder 300.02 ; No condition on [place] II V71.09 ; Heart problem 429.9 and Hypertension 401.9 [facility] [id number] [place] [address] 47714- 5580 Aug, [place] [address] [facility] [id number] [address]- 5675 Jul, [facility] [address], [place] [address]- 6832 Jul, [facility] [id number], [place] [address]- 0098 Jul, [facility] [address], [place] [address]- 0841 Jul, [facility] [id number] [address]- 9906 Jul, Rash 782.1 [facility] [id number], [place] [address]- 5322 Jul, UTI (urinary tract infection) 599.0 [facility] [id number], [place] [address]- 1352 Jul, [facility] [id number], [place] [address]- 8531 Jun, Dysthymia 300.4 and Anxiety 300.00 [facility] [id number], [place] [address]- 0451 Jun, 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 [facility] [id number], [place] [address]- 6559 May, [facility] [id number], [place] [address]- 6623 May, [facility] [id number] [address]- 4737 May, Unspecified breast screening V76.10 [facility] [address] [id number] [id number] May, Dental examination V72.2 [facility] [id number], [place] [address]- 3893 April, [facility] [id number] [place] [address] 2546 April, [facility] [address] [id number] [id number] April, Dental examination V72.2 [facility] [place] [facility] [address] [id number] [place] [id number] April, Dental examination V72.2 [facility] [address] [id number] [place] [address]- 9486 14 Mar, 2015 [facility] [address] [id number] [place] [address] 2544 Mar, [facility] [address] [id number] [place] [address]- 0556 25 Jan, 2015 [facility] [address] [id number] [place] [address]- 6227 25 Jan, 2015 [facility] [address] [id number] [place] [address]- 7560 18 Jan, 2015 [facility] [address] [id number] [place]- 5124 18 Jan, 2015 [facility] [address] [id number]- 0335 16 Jan, 2015 [facility] [place] [facility] [address] [id number] [place]- 8428 16 Jan, 2015 [facility] [place] [facility] [address] [id number]- 1076 13 Jan, 2015 [facility] [place] [facility] [address] [id number] [place] [address]- 6859 13 Jan, 2015 [facility] [place] [facility] [address] [id number] [place] [address]- 8612 11 Jan, 2015 [facility] [place] [facility] [address] [id number], [place] [address]- 4776 11 Jan, 2015 [facility] [place] [facility] [address] [id number][place] [address]- 4655 Jan, [facility] [place] [facility] [address] [id number] [place] [address]- 3029 Jan, [facility] [place] [facility] [address] [id number] [place] [address]- 4226 Jan, [facility] [place] [facility] [address] [facility] [id number] [place] [address]- 6603 Jan, [facility] [place] [facility] [address] [id number] [place] [address]- 9172 Jan, 2014 [facility] [place] [facility] [address] [id number] [place] [address] Jan, [facility] [place] [facility] [address] [facility] [id number] [place] [address] Jan, [facility] [place] [facility] [address] [facility] [id number] [place] [address] Jan, [facility] [place] [facility] [address] [facility] [id number] [place] [address] Jan, [facility] [place] [facility] [address] [facility] [id number] [place] [address] Jan, [facility] [place] [facility] [address] [facility] [id number] [place] [address] Jan, [facility] [place] [facility] [address] [facility] [id number] [place] [address] Jan, [facility] [place] [facility] [address] [facility] [id number], [place] [address] Dec, [facility] [place] [facility] [address] [id number] [place] [address] Dec, [facility] [place] [facility] [address] [facility] [id number] [place] [address] Dec, [facility] [place] [facility] [address] [facility] [id number], [place] [address] Dec, [facility] [place] [facility] [address] [id number] [place] [address] Nov, [facility] [place] [facility] [address] [id number] [place] [address] Nov, [facility] [place] [facility] [address] [id number] [place] [address] Nov, [facility] [place] [facility] [address] [id number] [place] [address] Nov, [facility] [place] [facility] [address] [id number] [place] [address] Nov, [facility] [place] [facility] [address] [id number] [place] [address] Nov, [facility] [place] [facility] [address] [id number] [place] [address] Nov, [facility] [place] [facility] [address] [id number] [place] [address] Oct, [facility] [place] [facility] [address] [id number] [place] [address] Oct, [facility] [place] [facility] [address] [id number] [place] [address] Oct, [facility] [place] [facility] [address] [id number] [place] [address] Oct, [facility] [place] [facility] [address] [id number] [place] [address] Oct, [facility] [place] [facility] [address] [id number] [place] [address] Oct, [facility] [place] [facility] [address] [id number] [place] [address] Oct, [facility] [place] [facility] [address] [id number] [place] [address] 1776 Oct, [facility] [place] [facility] [address] [id number] [place] [address] 2697 Oct, [facility] [place] [facility] [address] [id number] [place] [address] 6953 Oct, [facility] [place] [facility] [address] [id number] [place] [address]228 Oct, [facility] [place] [facility] [address] [id number] [place] [address] 3040 Oct, [facility] [place] [facility] [address] [id number] [place] [address] 2011 Sep, [facility] [place] [facility] [address] [id number] [place] [address] 4115 Sep, [facility] [place] [facility] [address] [id number] [place] [address] 5961 Sep, [facility] [place] [facility] [address] [id number] [place] [address] 4980 Sep, [facility] [place] [facility] [address] [id number] [place] [address] 3113 Jul, [facility] [place] [facility] [address] [id number] [place] [address] 6351 Jul, [facility] [place] [facility] [address] [id number] [place] [address] 9109 Jul, [facility] [place] [facility] [address] [id number] [place] [address]- 3093 Jul, [facility] [place] [facility] [address] [id number] [place] [address]- 0190 Jun, [facility] [place] [facility] [address] [id number] [place] [address]- 4257 Jun, [facility] [place] [facility] [address] [id number] [place] [address]- 2587 Jun, [facility] [place] [facility] [address] [id number] [place] [address] 2015 Jun, [facility] [place] [facility] [address] [id number] [place] [address] 8987 May, [facility] [address] [id number] [place] [address] 9246 May, [facility] [address] [id number] [place] [address] 3344 April, [facility] [address] [id number] [place] [address] 1257 April, [facility] [address] [id number] [place] [address] 62[address] April, [facility] [address] [id number] [place] [address] 9244 April, [facility] [address] [id number] [place] [address] 1539 April, [facility] [address] [id number] [place] [address] 4710 April, [facility] [address] [id number] [place] [address]- 1034 April, [facility] [address] [id number] [place] [address] 8890 April, [facility] [address] [id number] [place] [address] 1864 April, [facility] [address] [id number] [place] [address] 6155 Mar, [facility] [address] [id number] [place] [address]- 3867 Mar, [facility] [place] [facility] [address] [id number] [place] [address] 2558 Mar, [facility] [place] [facility] [address] [id number] [place] [address] 5565 Mar, [facility] [address] [id number] [place] [address] 4964 Jan, [facility] [place] [facility] [address] [id number] [place] [address]- 6612 Jan, [facility] [place] [facility] [address] [id number] [place] [address] 3690 Jan, [facility] [place] [facility] [address] [id number] [place] [address]- 8513 Jan, [facility] [place] [facility] [address] [id number] [place] [address]- 0170 Jan, [facility] [place] [facility] [address] [id number] [place] [address]- 2077 Jan, [facility] [place] [facility] [address] [id number] [place] [address]- 3451 Jan, [facility] [place] [facility] [address] [id number] [place] [address]- 9733 Jan, [facility] [place] [facility] [address] [id number] [place] [address]- 7657 Jan, [facility] [place] [facility] [address] [id number] [place] [address]- 6247 Jan, [facility] [place] [facility] [address] [id number] [place] [address]- 6001 Jan, [facility] [place] [facility] [address] [id number] [place] [address]- 4869 Jan, [facility] [place] [facility] [address] [id number] [place] [address]- 6014 Dec, [facility] [place] [facility] [address] [id number] [place] [address]- 8980 Dec, [facility] [place] [facility] [address] [id number] [place] [address]- 6326 Dec, [facility] [place] [facility] [address] [id number] [place] [address]- 4045 Dec, [facility] [place] [facility] [address] [id number] [place] [address]- 5220 Nov, [facility] [address] [id number] [place] [address]- 2072 Nov, [facility] [place] [facility] [address] [id number] [place] [address]- 7403 Nov, [facility] [place] [facility] [address] [id number] [place] [address]- 8269 Nov, [facility] [place] [facility] [address] [id number] [place] [address]- 3491 Oct, [facility] [place] [facility] [address] [id number] [place] [address]- 2815 Oct, [facility] [place] [facility] [address] [id number] [place] [address]- 5596 Sep, [facility] [place] [facility] [address] [id number] [place] [address]- 6507 Sep, [facility] [place] [facility] [address] [id number] [place] [address]- 1346 Jul, [facility] [place] [facility] [address] [id number] [place] [address]- 1681 Jul, [facility] [place] [facility] [address] [facility] [id number] [place] [address]- 3638 Jun, [facility] [place] [facility] [address] [id number] [place] [address]- 0212 Jun, [facility] [place] [facility] [address] [id number] [place] [address]- 0851 Jun, [facility] [place] [facility] [address] [id number] [place] [address]- 4485 May, [facility] [place] [facility] [address] [id number] [place] [address]- 7922 May, [facility] [place] [facility] [address] [id number] [place] [address]- 8756 May, [facility] [place] [facility] [address] [id number] [place] [address]- 6042 May, [facility] [address] [id number] [place] [address]- 7564 May, [facility] [address] [id number] [place] [address]- 9218 April, [facility] [address] [id number] [place] [address]- 0034 April, [facility] [address] [id number] [place] [address]- 7035 April, [facility] [address] [id number] [place] [address]- 2416 April, [facility] [address] [id number] [place] [address]- 0549 April, [facility] [address] [id number] [place] [address]- 7955 April, [facility] [address] [id number] [place] [address]- 8779 Mar, [facility] [address] [id number] [place] [address]- 0385 Mar, [facility] [address] [id number] [place] [address]- 1986 Jan, [facility] [address] [id number] [place] [address]- 6479 Jan, [facility] [address] [id number] [place] [address]- 3147 Jan, [facility] [place] [facility] [address] [id number] [place] [address]- 6872 Jan, [facility] [place] [facility] [address] [id number] [place] [address]- 0629 Jan, [facility] [place] [facility] [address] [id number] [place] [address]- 4917 Jan, 2012 [facility] [address] [id number] [place] [address]- 1136 05 Jan, 2012 [facility] [address] [id number] [place] [address] 2546 04 Jan, 2012 [facility] [address] [id number] [place] [address]- 3526 Jan, 2012 [facility] [address] [id number] [place] [address]- 3298 Jan, 2012 [facility] [address] [id number] [place] [address]- 9325 Jan, [facility] [address] [id number] [place] [address]- 0225 Dec, [facility] [address] [id number] [place] [address]- 9349 Nov, [facility] [address] [id number] [place] [address]- 2547 Nov, [facility] [address] [id number] [place] [address]- 0686 Nov, [facility] [address] [facility] [id number] [place] [address]- 2579 Nov, [facility] [address] [id number] [place] [address] 2544 Nov, [facility] [address] [id number] [place] [address] 2546 Nov, [facility] [address] [id number] [place] [address] 2541 Nov, [facility] [address] [id number] [place] [address]- 254 Nov, [facility] [address] [id number] [place] [address]- 2545 Nov, [facility] [place] [facility] [address] [id number] [place] [address]- 9064 18 Nov, 2012 [facility] [place] [facility] [address] [id number] [place] [address] 18 Nov, 2012 [facility] [place] [facility] [address] [id number] [place] Nov, [facility] [place] [facility] [address] [id number] [place] [address]- 6076 Nov, [facility] [place] [facility] [address] [id number] [place] [address]- 9046 17 Oct, 2012 [facility] [place] [facility] [address] [id number] [place] [address]- 8288 Oct, [facility] [place] [facility] [address] [id number] [place] [address] Oct, [facility] [place] [facility] [address] [id number] [place] [address]- 8990 Sep, [facility] [place] [facility] [address] [id number] [place] [address]- 4476 Sep, [facility] [place] [facility] [address] [id number] [place] [address]- 9104 10 Sep, 2012 [facility] [place] [facility] [address] [facility] [id number] [place] [address]- 5881 10 Sep, 2012 [facility] [place] [facility] [address] [id number] [place] [address]- 8064 27 Aug, 2012 [facility] [place] [facility] [address] [id number] [place] [address]- 7959 20 Aug, 2012 [facility] [place] [facility] [address] [id number] [place] [address]- 1636 24 Jul, 2012 [facility] [place] [facility] [address] [id number] [place] [address] 2546 27 May, 2012 [facility] [place] [facility] [address] [id number] [place] [address]- 7079 14 May, 2012 [facility] [address] [id number] [place] [address]- 0187 14 May, 2012 [facility] [place] [facility] [address] [id number] [place] [address]- 7965 April, [facility] [place] [facility] [address] [id number] [place] [address]- 3355 Mar, [facility] [place] [facility] [address] [id number] [place] [address]- 8060 Mar, [facility] [place] [facility] [address] [id number] [place] [address]- 4123 Mar, [facility] [place] [facility] [address] [id number] [place] [address]- 6445 Jan, [facility] [place] [facility] [address] [id number] [place] [address]- 6878 Jan, [facility] [place] [facility] [address] [id number] [place] [address]- 1521 Jan, [facility] [place] [facility] [address] [id number] [place] [address]- 1837 Dec, [facility] [place] [facility] [address] [id number] [place] [address]- 2085 Dec, [facility] [place] [facility] [address] [id number], [place] [address]- 3206 Dec, [facility] [place] [facility] [address] [id number], [place] [address]- 7723 Dec, [facility] [place] [facility] [address] [id number] [place] [address]- 0600 Nov, [facility] [place] [facility] [address] [id number] [place] [address]- 6713 Nov, [facility] [place] [facility] [address] [id number] [place] [address] 2546 Nov, [facility] [place] [facility] [address] [id number] [place] [address]- 4405 03 Oct, 2011 [facility] [address] [id number] [place] [address]- 1181 31 Sep, 2011 [facility] [place] [facility] [address] [id number] [place] [address] 2546 26 Sep, 2011 [facility] [place] [facility] [address] [id number] [place] [address]- 6696 13 Sep, 2011 [facility] [place] [facility] [address] [id number] [place] [address] 2549 15 Nov, 2010 [facility] [place] [facility] [address] [id number] [place] [address]- 3634 23 Oct, 2010 [facility] [place] [facility] [address] [id number] [place] [address]- 3311 Oct, [facility] [place] [facility] [address] [id number] [place] [address]- 0923 18 Oct, 2010 [facility] [place] [facility] [address] [id number] [place] [address]- 0140 16 Oct, 2010 [facility] [place] [facility] [address] [id number] [place] [address]- 7005 Sep, [facility] [place] [facility] [address] [id number] [place] [address]- 3054 April, [facility] [place] [facility] [address] [id number] [place] [address] 2548 29 Nov, 2009 [facility] [place] [facility] [address] [id number] [place] [address]- 2544 24 Nov, 2009 [facility] [place] [facility] [address] [id number] [place] [address] 2540 22 Nov, 2009 [facility] [place] [facility] [address] [id number] [place] [address]- 2541 10 Nov, 2009 [facility] [place] [facility] [address] [id number] [place] [address] 2545 Nov, [facility] [address] [facility] [id number] [place] [address]- 1467 Oct, [facility] [address] [facility] [id number], [place] [address]- 7936 Oct, [facility] [address] [facility] [id number], [place] [address]- 7392 Sep, [facility] [address] [facility] [id number], [place] [address]- 7096 Jan, IMMUNIZATIONS No Known Immunizations SOCIAL HISTORY Never Assessed REASON FOR VISIT Rx for rash PLAN OF CARE VITAL SIGNS MEDICATIONS Medication Instructions Dosage Frequency Start Date End Date Duration Status Desoximetasone 0.25 % Externally Twice a day prn 1 application to affected area April, Active RESULTS No Results PROCEDURES No Known procedures INSTRUCTIONS MEDICATIONS ADMINISTERED No Known Medications MEDICAL (GENERAL) HISTORY Type Description Date Medical History Hypertension Medical History Heart disease CABG X3 Stress test 07/2015 Medical History Gastric ulcer Medical History Hyperlipidemia Medical History Headache syndrome Medical History Psychiatric disorders-depression/racing thoughts Medical History Depression Medical History At [facility] 04/2016 Started on Eliquis Medical History Anemia 04/2016 postsurgical hip fx Surgical History right hip replacement w/ Dr. Bruce 2011 Surgical History triple bypass surgery 2003 Surgical History S/P left hip IM Nail (Intertrechanteric hip fx) 04/28/16 Hospitalization History surgeries Hospitalization History Hypertension Hospitalization History ER for a concussion 11/24/15 Hospitalization History Intertrechanteric hip fx 04/27/16 Hospitalization History [facility] ([facility]patient [facility] times) Hx of 3 inpatient psych treatments in past in [place] oct 2016 [facility] 2016
--- OUTSIDE RECORDS SUMMARY | 2018-08-20 13:02 | XMS REPORT ---
Author Author WOLF AGUIRRE [facility] Address [address] [place] [address] Care Team Providers Care Transmitter Engineer In Charge Name Role Phone WOLF AGUIRRE Unavailable PROBLEMS Type Condition ICD9-CM Code UFL58-QL Code Onset Dates Condition Status SNOMED Code Problem Sundowning F05 Active 042601901 Problem Constipation, unspecified constipation type K59.00 Active 97483151 Problem Reactive depression F32.9 Active 06479971 Problem Vascular dementia with behavior disturbance F01.51 Active 645208954422954 Problem Insomnia, unspecified type G47.00 Active 915597674 Problem Generalized anxiety disorder F41.1 Active 17401229 Problem Other chronic pain G89.29 Active 57116595 Problem Severe episode of recurrent major depressive disorder, without psychotic features F33.2 Active 95351388 Problem Slow transit constipation K59.01 Active 13026283 Problem 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 Active 894698077 Problem Obsessive thinking F42.8 Active 84925625 Problem Failure to thrive in adult R62.7 Active 452004773 Problem Dysthymic disorder F34.1 Active 94117399 Problem Hypertension I10 Active 43895399 Problem Mood disorder F39 Active 80061982 Problem Irritable bowel syndrome with diarrhea K58.0 Active 006325394 Problem Oropharyngeal dysphagia R13.12 Active 58657748 Problem 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 Active 76986424 Problem Other chronic pain G89.29 Active 05470479 Problem Primary insomnia F51.01 Active 5270581 Problem Poor appetite R63.0 Active 24961429 Problem Atherosclerotic heart disease of [place] 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 Active 621559768920265 Problem Iron deficiency anemia secondary to inadequate dietary iron intake D50.8 Active 495135397 Problem Coarse tremors G25.2 Active 80354303 Problem Gastroesophageal reflux disease without esophagitis K21.9 Active 047553041 Problem Essential hypertension I10 Active 94669240 ALLERGIES No Information ENCOUNTERS Encounter Location Date Diagnosis [facility] [id number] [place] [address] 99532- 9812 Jun, [facility] [address] [id number] Jun, Left lower quadrant pain R10.32 and Left leg pain M79.605 [facility] [id number] [place] [address] 23976- 5360 Jun, [facility] [address] [id number] Jun, Pain in left hip M25.552 ; Pain in right hip M25.551 and Primary insomnia F51.01 [facility] [id number] [place] [address] 33743- 2382 Jun, [facility] [address] [id number] May, [facility] [id number] [place] [address] 26800- 2183 May, [facility] [id number] [place] [address] 29322- 4917 May, [facility] [address] [id number] May, Mood disorder F39 [facility] [id number] [place] [address] 03158- 7857 May, [facility] [id number] [place] [address] 53811- 0802 April, [facility] [address] [id number] April, Generalized anxiety disorder F41.1 ; Obsessive thinking F42.8 and Insomnia , unspecified type G47.00 [facility] [address] [place] [address] 14649- 1356 April, [facility] [id number] [place] [address] 24134- 3528 April, Rash of face R21 [facility] [id number] [place] [address] 37209- 9078 Mar, [facility] [id number] [place] [address] 32782- 8550 Mar, [facility] [id number] [place] [address] 52140- 7716 Mar, [facility] [id number] [place] [address] 18930- 8106 Jan, [facility] [id number] [place] [address] 99715- 5824 Jan, [facility] [address] [id number] Jan, Constipation, unspecified constipation type K59.00 and Other chronic pain G89.29 [facility] [id number] [place] [address] 41632- 1037 Jan, [facility] [address] [id number] Jan, Obsessive thinking F42.8 and Coarse tremors G25.2 [facility] [id number] [place] [address] [id number] Jan, [facility] [id number] [place] [address] [id number] Jan, [facility] [address] [id number] Jan, Generalized anxiety disorder F41.1 ; Obsessive thinking F42.8 ; Callus of foot L84 and 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 [facility] [id number] [place] [address] 25363- 4549 Dec, Generalized anxiety disorder F41.1 and Severe episode of recurrent major depressive disorder, without psychotic features F33.2 [facility] [id number] [place] [address] 31191- 7689 Nov, [facility] [id number] [address]- 4456 Nov, [facility] [place] [address] [id number] Nov, Oropharyngeal dysphagia R13.12 ; Generalized anxiety disorder F41.1 and 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 [facility] [address] [address] 6998 Nov, [facility] [id number] [place] [address] [id number] Nov, [facility] [address], [place] [address]- 4945 Nov, [facility] [address] [place] [address] 52536- 6553 Nov, [facility] [address] [place] [address] 46721- 6775 Oct, Constipation, unspecified constipation type K59.00 and Mood disorder F39 [facility] [address], [place] [address]- 9681 Oct, [facility] [id number] [place] [address] [id number] Sep, [facility] [id number] [address] Sep, [facility] [id number] [place] [address] [id number] Sep, [facility] [id number] [place] [address] [id number] Sep, [facility] [place] [address] [address] Sep, Generalized abdominal pain R10.84 [facility] [address], [place] [address]- 8106 Sep, [facility] [id number] [address] Sep, Generalized anxiety disorder F41.1 and Primary insomnia F51.01 [facility] [id number] [id number] Aug, [facility] [id number] [address] Aug, Generalized anxiety disorder F41.1 [facility] [id number] [address]- 0342 Jul, [facility] [place] [address] [id number] Jul, Obsessive thinking F42.8 [facility] [id number] [address]- 9071 Jul, Generalized anxiety disorder F41.1 and Irritable bowel syndrome with diarrhea K58.0 [facility] [id number] [id number] Jul, Generalized anxiety disorder F41.1 [facility] [id number] [id number] Jun, Generalized anxiety disorder F41.1 [facility] [id number], [place] [address]- 5801 May, [facility] [address] [id number] May, Generalized anxiety disorder F41.1 ; Irritable bowel syndrome with diarrhea K58.0 and Coarse tremors G25.2 [facility] [address], [place] [address]- 3280 April, [facility] [id number], [place] [address]- 3258 April, [facility] [address], [place] [address]- 4912 April, [facility] [id number], [place] [address]- 6524 Mar, [facility] [address] [id number] Mar, Severe episode of recurrent major depressive disorder, without psychotic features F33.2 and Pain in left hip M25.552 [facility] [id number] [place] [address] 52655- 9676 Mar, [facility] [id number] [place] [address] 13873- 0877 Mar, [facility] [id number] [place] [address] 13822- 9856 Mar, [facility] [id number] [place] [address] 43866- 5792 Mar, Pain in right hip M25.551 and Self-care deficit in patient living alone R46.89 [facility] [id number] [place] [address] 62695 -3943 Jan, Other chronic pain G89.29 ; Pain in left hip M25.552 and Slow transit constipation K59.01 [facility] [id number] [place] [address] 26976- 1934 Jan, [facility] [id number] [place] [address] 54874- 0370 Dec, Other depression F32.89 ; Constipation, unspecified constipation type K59.00 and Insomnia, unspecified type G47.00 [facility] [id number] [place] [address] 33444- 9997 Nov, Reactive depression F32.9 ; Chronic idiopathic constipation K59.04 ; Generalized anxiety disorder F41.1 ; Coarse tremors G25.2 ; Gastroesophageal reflux disease without esophagitis K21.9 ; Dysthymic disorder F34.1 ; Vitamin deficiency, unspecified E56.9 and Primary insomnia F51.01 [facility] [id number] [place] [address] 43683- 6258 Nov, [facility] [id number] [place] [address] 66221- 0520 Nov, [facility] [id number] [place] [address] 81297- 8456 Nov, [facility] [id number] [place] [address] 75387- 3386 Nov, Reactive depression F32.9 ; Essential hypertension I10 ; Generalized anxiety disorder F41.1 ; Atherosclerotic heart disease of [place] 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 ; Pain in right hip M25.551 ; Other chronic pain G89.29 ; Chronic idiopathic constipation K59.04 ; Primary insomnia F51.01 ; Coarse tremors G25.2 ; Gastroesophageal reflux disease without esophagitis K21.9 ; Iron deficiency anemia secondary to inadequate dietary iron intake D50.8 and Vitamin deficiency, unspecified E56.9 [facility] [address] 55288- 3884 Oct, [facility] [address] 02085- 6383 Oct, [facility] [address] 66714- 8235 Oct, [facility] [address] 07563- 6693 Oct, Generalized anxiety disorder F41.1 ; Poor appetite R63.0 ; Dehydration E86.0 and Failure to thrive in adult R62.7 [facility] [id number] [place] [address] 10138- 1773 Oct, Generalized anxiety disorder F41.1 and Failure to thrive in adult R62.7 [facility] [id number] [place] [address] 82899- 6356 Oct, [facility] [address] 85920- 5185 Oct, [facility] [id number] [place] [address] 12123 -4440 Sep, Vaginal discharge N89.8 and Acute cystitis with hematuria N30.01 [facility] [address] 71764- 7374 Sep, [facility] [address] [place] [address] 67199- 0474 Sep, [facility] [id number] [place] [address] 70147- 9868 Sep, Dysthymic disorder F34.1 ; Acute vaginitis N76.0 ; Dysuria R30.0 and Vaginal yeast infection B37.3 [facility] [id number] [place] [address] 58404- 3045 Aug, [facility] [id number] [place] [address] 92376- 1503 Aug, [facility] [id number] [place] [address] 11515 -5625 Aug, Foul smelling urine R82.90 ; Rapid heart rate R00.0 and Flatulence R14.3 [facility] [id number] [place] [address] 84203- 0049 Aug, [facility] [id number] [place] [address] 32901- 7325 Jul, Constipation, unspecified constipation type K59.00 ; Weak R53.1 ; Poor appetite R63.0 ; Coronary artery disease involving [place] heart without angina pectoris, unspecified vessel or lesion type I25.10 ; Fatigue, unspecified type R53.83 ; Urinary incontinence, unspecified type R32 and Insomnia, unspecified type G47.00 [facility] [address], [place] [address]- 7176 Jul, [facility] [id number] [place] [address] 06298- 2996 Jun, Dysuria R30.0 [facility] [id number] [place] [address] 87415- 2112 Jun, [facility] [id number] [place] [address] 44833- 1785 Jun, Urinary tract infection, site not specified N39.0 ; Acute vaginitis N76.0 and Diarrhea, unspecified type R19.7 [facility] [id number] [place] [address] 10902- 3590 May, [facility] [id number] [place] [address] 64210- 3037 April, [facility] [id number] [place] [address] [id number] April, Encounter for dental examination Z01.20 [facility] [id number] [place] [address] 29351- 0655 April, [facility] [id number] [place] [address] 42361- 0865 April, Tremor R25.1 and Episodic tension-type headache, not intractable G44.219 [facility] [id number] [place] [address] 60386- 0160 Mar, [facility] [id number] [place] [address] 07684- 5722 Jan, Mood disorder F39 [facility] [id number] [place] [address] 14667 -2428 Jan, [facility] [id number] [place] [address] 20329- 2386 Jan, [facility] [id number] [place] [address] 50099- 7377 Jan, [facility] [id number] [place] [address] 60628- 3553 Jan, [facility] [id number] [place] [address] 17942- 1867 Jan, [facility] [id number] [place] [address] 30852- 0950 Jan, [facility] [id number] [place] [address] 31794 -1372 Dec, Acute diarrhea R19.7 [facility] [id number] [place] [address] 41194- 9354 Dec, [facility] [id number] [place] [address] 58820- 2074 Dec, [facility] [id number] [place] [address] 98622- 8525 Dec, [facility] [address] 84977 -7966 Dec, N&V (nausea and vomiting) R11.2 [facility] [address] 42536- 6795 Dec, Generalized anxiety disorder F41.1 [facility] [address] 18641- 7513 Dec, Generalized anxiety disorder F41.1 [facility] [address] 02186- 6663 Nov, Post concussion syndrome F07.81 [facility] [address] 76787- 5818 Nov, Generalized anxiety disorder F41.1 [facility] [id number] [place] [address] 34284- 1803 Nov, [facility] [id number] [place] [address] 83168- 4465 Nov, Generalized anxiety disorder F41.1 [facility] [id number] [place] [address] [id number] Oct, Dental caries K02.9 [facility] [id number] [place] [address] 88455- 0756 Oct, [facility] [id number] [place] [address] [id number] Oct, Dental examination Z01.20 [facility] [id number] [place] [id number] 10 Oct, 2015 Encounter for dental examination Z01.20 [facility] [address] 70456- 7031 Oct, CAD (coronary artery disease) I25.10 [facility] [id number] [place] [address] 33202- 3996 Sep, Generalized anxiety disorder F41.1 [facility] [address] 78769- 1690 Sep, [facility] [address] 16524- 9947 Sep, Rash and other nonspecific skin eruption R21 and Yeast vaginitis B37.3 [facility] [address] 91113- 8365 Sep, Generalized anxiety disorder F41.1 [facility] [address] 01695- 5956 Aug, Insect bites 919.4 and Hemorrhoids 455.6 [facility] [address] 83828- 0239 Aug, Generalized anxiety disorder 300.02 [facility] [id number] [place] [address] 91958- 6899 08 Aug, 2015 [facility] [address] 37627- 4389 Aug, [facility] [address] 17499- 8977 Aug, Generalized anxiety disorder 300.02 ; No condition on [place] II V71.09 ; Heart problem 429.9 and Hypertension 401.9 [facility] [address] 03508- 7466 Aug, [facility] [address] 08507- 3232 Jul, [place] [address] [facility] [id number] [address]- 3574 Jul, [facility] [address], [place] [address]- 7692 Jul, [facility] [address] [facility] [id number] [address]- 9122 Jul, [facility] [address], [place] [address]- 4084 Jul, Rash 782.1 [facility] [address], [place] [address]- 4894 Jul, UTI (urinary tract infection) 599.0 [facility] [address], [place] [address]- 5371 Jul, [facility] [address], [place] [address]- 0015 Jun, Dysthymia 300.4 and Anxiety 300.00 [facility] [address], [place] [address]- 1581 Jun, 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 [facility] [address], [place] [address]- 4091 May, [facility] [id number], [place] [address]- 9808 May, [facility] [id number], [place] [address]- 8074 May, Unspecified breast screening V76.10 [facility] [address] [id number] May, Dental examination V72.2 [facility] [id number], [place] [address]- 0199 April, [facility] [id number], [place] [address]- 7571 April, [facility] [id number] [id number] April, Dental examination V72.2 [facility] [address] [id number] [place] [id number] April, Dental examination V72.2 [facility] [address] [id number] [place] [address]- 8876 14 Mar, 2015 [facility] [address] [id number] [place] [address]- 9188 Mar, [facility] [address] [id number] [place] [address]- 6652 25 Jan, 2015 [facility] [address] [id number] [place]- 6214 25 Jan, 2015 [facility] [address] [id number] [place]- 6237 18 Jan, 2015 [facility] [address] [id number] [place] [address]- 4645 18 Jan, 2015 [facility] [address] [id number] [place] [address]- 4365 16 Jan, 2015 [facility] [address] [id number] [place] [address]- 0742 16 Jan, 2015 [facility] [address] [id number] [place] [address]- 8299 13 Jan, 2015 [facility] [address] [id number], [place] [address]- 8932 13 Jan, 2015 [facility] [place] [facility] [address] [id number] [place]- 8969 11 Jan, 2015 [facility] [place] [facility] [address] [id number] [place]- 6664 11 Jan, 2015 [facility] [place] [facility] [address] [id number] [place] [address]- 9020 11 Jan, 2015 [facility] [place] [facility] [address] [id number], [place] [address]- 5003 Jan, [facility] [place] [facility] [address] [id number] [place] [address]- 2452 Jan, [facility] [place] [facility] [address] [id number] [place] [address]- 6665 Jan, [facility] [place] [facility] [address] [facility] [id number] [place] [address]- 5874 Jan, 2014 [facility] [place] [facility] [address] [id number] [place] [address]- 4537 Jan, 2014 [facility] [place] [facility] [address] [id number] [place] [address]- 4194 Jan, 2014 [facility] [place] [facility] [address] [facility] [id number] [place] [address]- 1562 Jan, 2014 [facility] [place] [facility] [address] [facility] [id number] [place] [address]- 4296 Jan, [facility] [place] [facility] [address] [facility] [id number] [place] [address]- 2396 Jan, [facility] [place] [facility] [address] [facility] [id number] [place] [address]- 1539 Jan, [facility] [place] [facility] [address] [facility] [id number] [place] [address]- [address] Jan, [facility] [place] [facility] [address] [facility] [id number] [place] [address] Dec, [facility] [place] [facility] [address] [facility] [id number] [place] [address] Dec, [facility] [place] [facility] [address] [id number] [place] [address] Dec, [facility] [place] [facility] [address] [facility] [id number] [place] [address] Dec, [facility] [place] [facility] [address] [facility] [id number], [place] [address] Nov, [facility] [place] [facility] [address] [id number] [place] [address] Nov, [facility] [place] [facility] [address] [id number] [place] [address] Nov, [facility] [place] [facility] [address] [id number] [place] [address] Nov, [facility] [place] [facility] [address] [id number] [place] [address] Nov, [facility] [place] [facility] [address] [id number] [place] [address] Nov, [facility] [place] [facility] [address] [id number] [place] [address] Nov, [facility] [place] [facility] [address] [id number] [place] [address] Oct, [facility] [place] [facility] [address] [id number] [place] [address] Oct, [facility] [place] [facility] [address] [id number] [place] [address] Oct, [facility] [place] [facility] [address] [id number] [place] [address] Oct, [facility] [place] [facility] [address] [id number] [place] [address] Oct, [facility] [place] [facility] [address] [id number] [place] [address] Oct, [facility] [place] [facility] [address] [id number] [place] [address] Oct, [facility] [place] [facility] [address] [id number] [place] [address] Oct, [facility] [place] [facility] [address] [id number] [place] [address] Oct, [facility] [place] [facility] [address] [id number] [place] [address] Oct, [facility] [place] [facility] [address] [id number] [place] [address] Oct, [facility] [place] [facility] [address] [id number] [place] [address] Oct, [facility] [place] [facility] [address] [id number] [place] [address] Sep, [facility] [place] [facility] [address] [id number] [place] [address] Sep, [facility] [place] [facility] [address] [id number] [place] [address] Sep, [facility] [place] [facility] [address] [id number] [place] [address] Sep, [facility] [place] [facility] [address] [id number] [place] [address] Jul, [facility] [place] [facility] [address] [id number] [place] [address] Jul, [facility] [place] [facility] [address] [id number] [place] [address] Jul, [facility] [place] [facility] [address] [id number] [place] [address] Jul, [facility] [place] [facility] [address] [id number] [place] [address] Jun, [facility] [place] [facility] [address] [id number] [place] [address] 268[address] Jun, [facility] [place] [facility] [address] [id number] [place] [address]1 Jun, [facility] [place] [facility] [address] [id number] [place] [address] 90[address] Jun, [facility] [place] [facility] [address] [id number] [place] [address] May, [facility] [place] [facility] [address] [id number] [place] [address] 6[address] May, [facility] [address] [id number] [place] [address] April, [facility] [address] [id number] [place] [address] April, [facility] [address] [id number] [place] [address] April, [facility] [address] [id number] [place] [address] April, [facility] [address] [id number] [place] [address] 73[address] April, [facility] [address] [id number] [place] [address] 0689 April, [facility] [address] [id number] [place] [address] 1607 April, [facility] [address] [id number] [place] [address] 2816 April, [facility] [address] [id number] [place] [address] 7844 April, [facility] [address] [id number] [place] [address] 74[address] Mar, [facility] [address] [id number] [place] [address] 9655 Mar, [facility] [address] [id number] [place] [address] Mar, [facility] [place] [facility] [address] [id number] [place] [address] 5397 Mar, [facility] [address] [id number] [place] [address] 1051 Jan, [facility] [address] [id number] [place] [address] 2905 Jan, [facility] [place] [facility] [address] [id number] [place] [address] 5[address] Jan, [facility] [place] [facility] [address] [id number] [place] [address] 9395 Jan, [facility] [place] [facility] [address] [id number] [place] [address] 4736 Jan, [facility] [place] [facility] [address] [id number] [place] [address]- 5101 Jan, [facility] [place] [facility] [address] [id number] [place] [address]- 1491 Jan, [facility] [place] [facility] [address] [id number] [place] [address] 6513 Jan, [facility] [place] [facility] [address] [id number] [place] [address] 9214 Jan, [facility] [place] [facility] [address] [id number] [place] [address] 0846 Jan, [facility] [place] [facility] [address] [id number] [place] [address]- 1044 Jan, [facility] [place] [facility] [address] [id number] [place] [address] 5648 Jan, [facility] [place] [facility] [address] [id number] [place] [address] 1219 Dec, [facility] [place] [facility] [address] [id number] [place] [address] 4586 Dec, [facility] [place] [facility] [address] [id number] [place] [address] 4168 Dec, [facility] [place] [facility] [address] [id number] [place] [address]- 2287 Dec, [facility] [place] [facility] [address] [id number] [place] [address] 7132 Nov, [facility] [place] [facility] [address] [id number] [place] [address] 6042 Nov, [facility] [place] [facility] [address] [id number] [place] [address] 8421 Nov, [facility] [place] [facility] [address] [id number] [place] [address]- 2991 Nov, [facility] [place] [facility] [address] [id number] [place] [address] 8474 Oct, [facility] [place] [facility] [address] [id number] [place] [address] 6600 Oct, [facility] [place] [facility] [address] [id number] [place] [address]- 6760 Sep, [facility] [place] [facility] [address] [id number] [place] [address] 7094 Sep, [facility] [place] [facility] [address] [id number] [place] [address]- 6956 Jul, [facility] [place] [facility] [address] [id number] [place] [address] 4117 Jul, [facility] [place] [facility] [address] [id number] [place] [address]- 5475 Jun, [facility] [place] [facility] [address] [id number] [place] [address]- 2669 Jun, [facility] [place] [facility] [address] [id number] [place] [address]- 7833 Jun, [facility] [place] [facility] [address] [id number] [place] [address] 8817 May, [facility] [place] [facility] [address] [id number] [place] [address]- 5429 May, [facility] [place] [facility] [address] [id number] [place] [address]- 6269 May, [facility] [place] [facility] [address] [id number] [place] [address]- 0118 May, [facility] [place] [facility] [address] [id number] [place] [address] 0020 May, [facility] [address] [id number] [place] [address]- 8974 April, [facility] [address] [id number] [place] [address] 7887 April, [facility] [address] [id number] [place] [address]- 1105 April, [facility] [address] [id number] [place] [address] 7934 April, [facility] [address] [id number] [place] [address]- 9885 April, [facility] [address] [id number] [place] [address] 6666 April, [facility] [address] [id number] [place] [address]- 5999 Mar, [facility] [address] [id number] [place] [address]- 9978 Mar, [facility] [address] [id number] [place] [address]- 6310 Jan, [facility] [address] [id number] [place] [address]- 9856 Jan, [facility] [address] [id number] [place] [address]- 4119 Jan, [facility] [address] [id number] [place] [address]- 1820 Jan, [facility] [place] [facility] [address] [id number] [place] [address] 1971 Jan, [facility] [place] [facility] [address] [id number] [place] [address]- 8008 Jan, [facility] [address] [id number] [place] [address]- 4670 05 Jan, 2012 [facility] [address] [id number] [place] [address]- 5366 04 Jan, 2013 [facility] [address] [id number] [place] [address] 2546 03 Jan, 2013 [facility] [address] [id number] [place] [address]- 9106 02 Jan, 2013 [facility] [address] [id number] [place] [address]- 9513 Jan, [facility] [address] [id number] [place] [address]- 5066 Dec, [facility] [address] [id number] [place] [address]- 8404 Nov, [facility] [address] [id number] [place] [address]- 9187 Nov, [facility] [address] [id number] [place] [address]- 4767 Nov, [facility] [address] [id number] [place] [address]- 9377 Nov, [facility] [address] [id number] [place] [address]- 5954 Nov, [facility] [address] [id number] [place] [address]- 2951 Nov, [facility] [address] [id number] [place] [address]- 2543 Nov, [facility] [address] [id number] [place] [address]- 0240 Nov, [facility] [address] [id number] [place] [address]- 4717 Nov, [facility] [address] [facility] [id number] [place] [address]- 8049 18 Nov, 2012 [facility] [place] [facility] [address] [id number] [place] [address]- 8958 18 Nov, 2012 [facility] [place] [facility] [address] [id number] [place] [address]- 4826 Nov, [facility] [place] [facility] [address] [id number] [place] [address]- 3966 Nov, [facility] [place] [facility] [address] [id number] [place] [address]- 1456 17 Oct, 2012 [facility] [place] [facility] [address] [id number] [place] [address]- 5394 Oct, [facility] [place] [facility] [address] [id number] [place] [address]- 6252 Oct, [facility] [place] [facility] [address] [id number] [place] [address]- 9199 19 Sep, 2012 [facility] [place] [facility] [address] [id number] [place] [address]- 6138 19 Sep, 2012 [facility] [place] [facility] [address] [id number] [place] [address]- 1145 10 Sep, 2012 [facility] [place] [facility] [address] [id number] [place] [address]- 1843 10 Sep, 2012 [facility] [place] [facility] [address] [id number] [place] [address]- 9008 27 Aug, 2012 [facility] [place] [facility] [address] [id number] [place] [address]- 4888 20 Aug, 2012 [facility] [place] [facility] [address] [id number] [place] [address]- 6110 24 Jul, 2012 [facility] [place] [facility] [address] [id number] [place] [address]- 5176 27 May, 2012 [facility] [place] [facility] [address] [id number] [place] [address]- 6859 14 May, 2012 [facility] [place] [facility] [address] [id number] [place] [address]- 9005 May, [facility] [address] [id number] [place] [address]- 3267 April, [facility] [place] [facility] [address] [id number] [place] [address]- 7168 Mar, [facility] [place] [facility] [address] [id number] [place] [address]- 6962 Mar, [facility] [place] [facility] [address] [id number] [place] [address]- 1721 Mar, [facility] [place] [facility] [address] [id number] [place] [address]- 4194 Jan, [facility] [place] [facility] [address] [id number] [place] [address]- 3986 Jan, [facility] [place] [facility] [address] [id number] [place] [address]- 1295 Jan, [facility] [place] [facility] [address] [id number] [place] [address]- 6826 Dec, [facility] [place] [facility] [address] [id number] [place] [address]- 0179 Dec, [facility] [place] [facility] [address] [id number] [place] [address]- 9663 Dec, [facility] [place] [facility] [address] [id number], [place] [address]- 3813 Dec, [facility] [place] [facility] [address] [id number], [place] [address]- 6029 Nov, [facility] [place] [facility] [address] [id number] [place] [address]- 2909 Nov, [facility] [place] [facility] [address] [id number] [place] [address]- 4118 Nov, [facility] [place] [facility] [address] [id number] [place] [address]- 2546 Oct, [facility] [place] [facility] [address] [id number] [place] [address]- 6999 31 Sep, 2011 [facility] [address] [id number] [place] [address]- 6416 26 Sep, 2011 [facility] [place] [facility] [address] [id number] [place] [address] 2546 13 Sep, 2011 [facility] [address] [id number] [place] [address]- 9326 15 Nov, 2010 [facility] [place] [facility] [address] [id number] [place] [address] 2546 23 Oct, 2010 [facility] [place] [facility] [address] [id number] [place] [address]- 2386 19 Oct, 2010 [facility] [place] [facility] [address] [id number] [place] [address]- 7074 18 Oct, 2010 [facility] [address] [id number] [place] [address]- 6542 16 Oct, 2010 [facility] [place] [facility] [address] [id number] [place] [address]- 2942 11 Sep, 2010 [facility] [place] [facility] [address] [id number] [place] [address]- 8754 April, [facility] [address] [facility] [id number] [place] [address]- 4737 29 Nov, 2009 [facility] [place] [facility] [address] [id number] [place] [address] 2546 24 Nov, 2009 [facility] [place] [facility] [address] [id number] [place] [address]- 2548 22 Nov, 2009 [facility] [place] [facility] [address] [id number] [place] [address] 2546 10 Nov, 2009 [facility] [place] [facility] [address] [id number] [place] [address]- 2542 10 Nov, 2009 [facility] [place] [facility] [address] [id number] [place] [address] 2544 Oct, [facility] [address] [facility] [id number] [place] [address] [address] Oct, [facility] [address] [facility] [id number] [place] [address] Sep, [facility] [address] [facility] [id number] [place] [address]- 9843 Jan, IMMUNIZATIONS No Known Immunizations SOCIAL HISTORY Never Assessed REASON FOR VISIT medication request PLAN OF CARE VITAL SIGNS MEDICATIONS Medication Instructions Dosage Frequency Start Date End Date Duration Status Acetaminophen 325 MG Orally every 6 hrs 2 tablets as needed 6h Mar, Active RESULTS No Results PROCEDURES No Known procedures INSTRUCTIONS MEDICATIONS ADMINISTERED No Known Medications MEDICAL (GENERAL) HISTORY Type Description Date Medical History Hypertension Medical History Heart disease CABG X3 Stress test 07/2015 Medical History Gastric ulcer Medical History Hyperlipidemia Medical History Headache syndrome Medical History Psychiatric disorders-depression/racing thoughts Medical History Depression Medical History At [facility] 04/2016 Started on Eliquis Medical History Anemia 04/2016 postsurgical hip fx Surgical History right hip replacement w/ Dr. Bruce 2011 Surgical History triple bypass surgery 2003 Surgical History S/P left hip IM Nail (Intertrechanteric hip fx) 04/28/16 Hospitalization History surgeries Hospitalization History Hypertension Hospitalization History ER for a concussion 11/24/15 Hospitalization History Intertrechanteric hip fx 04/27/16 Hospitalization History [facility] (inpatient [facility] 2 times) Hx of 3 inpatient psych treatments in past in [place] oct 2016 [facility]
--- OUTSIDE RECORDS SUMMARY | 2018-08-20 13:03 | XMS REPORT ---
Author Author WOLF AGUIRRE [facility] Address [address] [place] [address] Care Team Providers Care Silicator Name Role Phone WOLF AGUIRRE Unavailable PROBLEMS Type Condition ICD9-CM Code CVN88-SA Code Onset Dates Condition Status SNOMED Code Problem Sundowning F05 Active 658156375 Problem Constipation, unspecified constipation type K59.00 Active 00215319 Problem Reactive depression F32.9 Active 45028256 Problem Vascular dementia with behavior disturbance F01.51 Active 287538085058032 Problem Insomnia, unspecified type G47.00 Active 712003974 Problem Generalized anxiety disorder F41.1 Active 60379332 Problem Other chronic pain G89.29 Active 99882233 Problem Severe episode of recurrent major depressive disorder, without psychotic features F33.2 Active 40140380 Problem Slow transit constipation K59.01 Active 76481907 Problem 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 Active 244919407 Problem Obsessive thinking F42.8 Active 75256126 Problem Failure to thrive in adult R62.7 Active 905648390 Problem Dysthymic disorder F34.1 Active 47754720 Problem Hypertension I10 Active 44965105 Problem Mood disorder F39 Active 32204899 Problem Irritable bowel syndrome with diarrhea K58.0 Active 663461275 Problem Oropharyngeal dysphagia R13.12 Active 39677929 Problem 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 Active 78200934 Problem Other chronic pain G89.29 Active 34339937 Problem Primary insomnia F51.01 Active 6156492 Problem Poor appetite R63.0 Active 43635520 Problem 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 Active 629506541944295 Problem Iron deficiency anemia secondary to inadequate dietary iron intake D50.8 Active 802145163 Problem Coarse tremors G25.2 Active 87251491 Problem Gastroesophageal reflux disease without esophagitis K21.9 Active 916058084 Problem Essential hypertension I10 Active 20297561 ALLERGIES No Information ENCOUNTERS Encounter Location Date Diagnosis [facility] [address] [place] [address] 76428- 4003 Jun, [facility] [address] [id number] Jun, Left lower quadrant pain R10.32 and Left leg pain M79.605 [facility] [id number] [place] [address] 97583- 1515 Jun, [facility] [address] [id number] Jun, Pain in left hip M25.552 ; Pain in right hip M25.551 and Primary insomnia F51.01 [facility] [id number] [place] [address] 75956- 2609 Jun, [facility] [address] [id number] May, [facility] [id number] [place] [address] 44285- 4628 May, [facility] [id number] [place] [address] 34548- 1129 May, [facility] [address] [id number] May, Mood disorder F39 [facility] [id number] [place] [address] 65956- 7120 May, [facility] [id number] [place] [address] 71571- 4510 April, [facility] [address] [id number] April, Generalized anxiety disorder F41.1 ; Obsessive thinking F42.8 and Insomnia , unspecified type G47.00 [facility] [address] [place] [address] 54043- 9675 April, [facility] [id number] [place] [address] 99315- 3244 April, Rash of face R21 [facility] [address] [place] [address] 42325- 2105 Mar, [facility] [id number] [place] [address] 41408- 9460 Mar, [facility] [address] [place] [address] 89776- 2196 Mar, [facility] [id number] [place] [address] 13101- 2687 Jan, [facility] [id number] [place] [address] 29814- 1924 Jan, [facility] [address] [id number] Jan, Constipation, unspecified constipation type K59.00 and Other chronic pain G89.29 [facility] [id number] [place] [address] 65685- 3698 Jan, [facility] [address] [id number] Jan, Obsessive thinking F42.8 and Coarse tremors G25.2 [facility] [id number] [place] [address] [id number] Jan, [facility] [id number] [place] [address] [id number] Jan, [facility] [address] [id number] Jan, Generalized anxiety disorder F41.1 ; Obsessive thinking F42.8 ; Callus of foot L84 and 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 [facility] [id number] [place] [address] 60244- 9893 Dec, Generalized anxiety disorder F41.1 and Severe episode of recurrent major depressive disorder, without psychotic features F33.2 [facility] [id number] [place] [address] 15987- 0733 Nov, [facility] [address] [place] [address]- 2045 Nov, [facility] [address] [place] [id number] Nov, Oropharyngeal dysphagia R13.12 ; Generalized anxiety disorder F41.1 and 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 [facility] [address], [place] [address]- 9345 Nov, [facility] [id number] [place] [address] [id number] Nov, [facility] [address] [address]- 3623 Nov, [facility] [address] [place] [address] 28204- 7969 Nov, [facility] [address] [place] [address] 36658- 8713 Oct, Constipation, unspecified constipation type K59.00 and Mood disorder F39 [facility] [address] [address]- 8046 Oct, [facility] [id number] [place] [address] [id number] Sep, [facility] [id number] [id number] Sep, [facility] [id number] [place] [address] [id number] Sep, [facility] [id number] [place] [address] [id number] Sep, [facility] [address] [place] [id number] Sep, Generalized abdominal pain R10.84 [facility] [address] [address]- 3746 Sep, [facility] [id number] [id number] Sep, Generalized anxiety disorder F41.1 and Primary insomnia F51.01 [facility] [id number] [id number] Aug, [facility] [id number] [id number] Aug, Generalized anxiety disorder F41.1 [facility] [id number] [address]- 2840 Jul, [facility] [place] [address] [place] [id number] Jul, Obsessive thinking F42.8 [facility] [id number] [address] 6360 Jul, Generalized anxiety disorder F41.1 and Irritable bowel syndrome with diarrhea K58.0 [facility] [id number] [id number] Jul, Generalized anxiety disorder F41.1 [facility] [address] [id number] Jun, Generalized anxiety disorder F41.1 [facility] [id number] [address]- 4127 May, [facility] [address] [id number] May, Generalized anxiety disorder F41.1 ; Irritable bowel syndrome with diarrhea K58.0 and Coarse tremors G25.2 [facility] [address], [place] [address]- 0898 April, [facility] [id number], [place] [address]- 8198 April, [facility] [address], [place] [address]- 8842 April, [facility] [id number] [address]- 4260 Mar, [facility] [address] [id number] Mar, Severe episode of recurrent major depressive disorder, without psychotic features F33.2 and Pain in left hip M25.552 [facility] [id number] [place] [address] 07161- 3854 Mar, [facility] [id number] [place] [address] 93702- 5885 Mar, [facility] [id number] [place] [address] 73174- 2278 Mar, [facility] [id number] [place] [address] 66164- 7427 Mar, Pain in right hip M25.551 and Self-care deficit in patient living alone R46.89 [facility] [id number] [place] [address] 85646 -1241 Jan, Other chronic pain G89.29 ; Pain in left hip M25.552 and Slow transit constipation K59.01 [facility] [id number] [place] [address] 57914- 5595 Jan, [facility] [id number] [place] [address] 23839- 0564 Dec, Other depression F32.89 ; Constipation, unspecified constipation type K59.00 and Insomnia, unspecified type G47.00 [facility] [id number] [place] [address] 63603- 4617 Nov, Reactive depression F32.9 ; Chronic idiopathic constipation K59.04 ; Generalized anxiety disorder F41.1 ; Coarse tremors G25.2 ; Gastroesophageal reflux disease without esophagitis K21.9 ; Dysthymic disorder F34.1 ; Vitamin deficiency, unspecified E56.9 and Primary insomnia F51.01 [facility] [id number] [place] [address] 55059- 1396 Nov, [facility] [id number] [place] [address] 81225- 6739 Nov, [facility] [id number] [place] [address] 61290- 1271 Nov, [facility] [id number] [place] [address] 64471- 5698 Nov, Reactive depression F32.9 ; Essential hypertension I10 ; Generalized anxiety disorder F41.1 ; 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 ; Pain in right hip M25.551 ; Other chronic pain G89.29 ; Chronic idiopathic constipation K59.04 ; Primary insomnia F51.01 ; Coarse tremors G25.2 ; Gastroesophageal reflux disease without esophagitis K21.9 ; Iron deficiency anemia secondary to inadequate dietary iron intake D50.8 and Vitamin deficiency, unspecified E56.9 [facility] [address] 19001- 3324 Oct, [facility] [address] 59629- 3986 Oct, [facility] [address] 19778- 3895 Oct, [facility] [address] 29922- 7806 Oct, Generalized anxiety disorder F41.1 ; Poor appetite R63.0 ; Dehydration E86.0 and Failure to thrive in adult R62.7 [facility] [id number] [place] [address] 78272- 6206 Oct, Generalized anxiety disorder F41.1 and Failure to thrive in adult R62.7 [facility] [id number] [place] [address] 60490- 2288 Oct, [facility] [address] 46318- 9460 Oct, [facility] [id number] [place] [address] 59317 -3496 Sep, Vaginal discharge N89.8 and Acute cystitis with hematuria N30.01 [facility] [address] 79167- 2089 Sep, [facility] [address] [place] [address] 13423- 6087 Sep, [facility] [id number] [place] [address] 09167- 6523 Sep, Dysthymic disorder F34.1 ; Acute vaginitis N76.0 ; Dysuria R30.0 and Vaginal yeast infection B37.3 [facility] [id number] [place] [address] 56647- 9070 Aug, [facility] [id number] [place] [address] 62867- 1157 Aug, [facility] [id number] [place] [address] 48671 -8314 Aug, Foul smelling urine R82.90 ; Rapid heart rate R00.0 and Flatulence R14.3 [facility] [id number] [place] [address] 96756- 4924 Aug, [facility] [id number] [place] [address] 92519- 1391 Jul, Constipation, unspecified constipation type K59.00 ; Weak R53.1 ; Poor appetite R63.0 ; Coronary artery disease involving augustine heart without angina pectoris, unspecified vessel or lesion type I25.10 ; Fatigue, unspecified type R53.83 ; Urinary incontinence, unspecified type R32 and Insomnia, unspecified type G47.00 [facility] [address] [address]- 8427 Jul, [facility] [id number] [place] [address] 43218- 4039 Jun, Dysuria R30.0 [facility] [id number] [place] [address] 00168- 5883 Jun, [facility] [id number] [place] [address] 80761- 7350 Jun, Urinary tract infection, site not specified N39.0 ; Acute vaginitis N76.0 and Diarrhea, unspecified type R19.7 [facility] [id number] [place] [address] 99266- 4685 May, [facility] [id number] [place] [address] 23274- 1082 April, [facility] [id number] [place] [address] [id number] April, Encounter for dental examination Z01.20 [facility] [id number] [place] [address] 97393- 5250 April, [facility] [id number] [place] [address] 65036- 6845 April, Tremor R25.1 and Episodic tension-type headache, not intractable G44.219 [facility] [id number] [place] [address] 33878- 2367 Mar, [facility] [id number] [place] [address] 26539- 2864 Jan, Mood disorder F39 [facility] [id number] [place] [address] 25802 -2614 Jan, [facility] [id number] [place] [address] 24130- 2246 Jan, [facility] [id number] [place] [address] 56023- 0571 Jan, [facility] [id number] [place] [address] 17911- 0778 Jan, [facility] [id number] [place] [address] 80127- 6854 Jan, [facility] [id number] [place] [address] 80372- 5236 Jan, [facility] [id number] [place] [address] 57301 -4258 Dec, Acute diarrhea R19.7 [facility] [id number] [place] [address] 39422- 7441 Dec, [facility] [id number] [place] [address] 98391- 8718 Dec, [facility] [id number] [place] [address] 45648- 6339 Dec, [facility] [address] 85878 -6464 Dec, N&V (nausea and vomiting) R11.2 [facility] [address] 52247- 5071 Dec, Generalized anxiety disorder F41.1 [facility] [address] 04455- 7336 Dec, Generalized anxiety disorder F41.1 [facility] [address] 98036- 3058 Nov, Post concussion syndrome F07.81 [facility] [address] 50958- 8160 Nov, Generalized anxiety disorder F41.1 [facility] [id number] [place] [address] 27658- 6889 Nov, [facility] [id number] [place] [address] 30115- 8287 Nov, Generalized anxiety disorder F41.1 [facility] [id number] [place] [address] [id number] Oct, Dental caries K02.9 [facility] [id number] [place] [address] 30146- 7714 Oct, [facility] [id number] [place] [address] [id number] Oct, Dental examination Z01.20 [facility] [id number] [place] [id number] 10 Oct, 2015 Encounter for dental examination Z01.20 [facility] [address] 80217- 8631 Oct, CAD (coronary artery disease) I25.10 [facility] [id number] [place] [address] 25164- 8280 Sep, Generalized anxiety disorder F41.1 [facility] [address] 24518- 2229 Sep, [facility] [address] 35371- 8639 Sep, Rash and other nonspecific skin eruption R21 and Yeast vaginitis B37.3 [facility] [address] 43865- 2024 Sep, Generalized anxiety disorder F41.1 [facility] [address] 15627- 6996 Aug, Insect bites 919.4 and Hemorrhoids 455.6 [facility] [address] 57711- 0343 Aug, Generalized anxiety disorder 300.02 [facility] [id number] [place] [address] 12053- 9365 08 Aug, 2015 [facility] [address] 94410- 2545 Aug, [facility] [address] 16908- 7420 Aug, Generalized anxiety disorder 300.02 ; No condition on [place] II V71.09 ; Heart problem 429.9 and Hypertension 401.9 [facility] [address] 48064- 3358 Aug, [facility] [address] 69868- 7817 Jul, [place] [address] [facility] [id number] [address]- 0112 Jul, [facility] [address], [place] [address]- 4528 Jul, [facility] [address] [facility] [id number] [address]- 3595 Jul, [facility] [address], [place] [address]- 7797 Jul, Rash 782.1 [facility] [address], [place] [address]- 6620 Jul, UTI (urinary tract infection) 599.0 [facility] [address], [place] [address]- 7458 Jul, [facility] [address], [place] [address]- 9421 Jun, Dysthymia 300.4 and Anxiety 300.00 [facility] [address], [place] [address]- 6692 Jun, 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 [facility] [address] [address]- 5482 May, [facility] [id number], [place] [address]- 0639 May, [facility] [id number], [place] [address]- 5744 May, Unspecified breast screening V76.10 [facility] [address] [id number] May, Dental examination V72.2 [facility] [id number], [place] [address]- 1335 April, [facility] [id number], [place] [address]- 5379 April, [facility] [id number] [address] April, Dental examination V72.2 [facility] [address] [id number] [place] [id number] April, Dental examination V72.2 [facility] [address] [id number] [place] [address]- 0066 14 Mar, 2015 [facility] [address] [id number] [place] [address]- 4998 Mar, [facility] [address] [id number] [place] [address]- 6373 25 Jan, 2015 [facility] [address] [id number] [place] 7727 25 Jan, 2015 [facility] [address] [id number] [place] 0157 18 Jan, 2015 [facility] [address] [id number] [place] [address]- 6990 18 Jan, 2015 [facility] [address] [id number] [place] [address]- 1374 16 Jan, 2015 [facility] [address] [id number] [place] [address]- 4692 16 Jan, 2015 [facility] [address] [id number] [place] [address]- 7640 13 Jan, 2015 [facility] [address] [id number], [place] [address]- 1411 13 Jan, 2015 [facility] [place] [facility] [address] [id number] [place]- 3742 11 Jan, 2015 [facility] [place] [facility] [address] [id number] [place]- 9303 11 Jan, 2015 [facility] [place] [facility] [address] [id number] [place] [address]- 1993 11 Jan, 2015 [facility] [place] [facility] [address] [id number], [place] [address]- 9800 Jan, [facility] [place] [facility] [address] [id number] [place] [address]- 9988 Jan, [facility] [place] [facility] [address] [id number] [place] [address]- 1277 Jan, [facility] [place] [facility] [address] [facility] [id number] [place] [address]- 5693 Jan, 2014 [facility] [place] [facility] [address] [id number] [place] [address]- 9043 Jan, 2014 [facility] [place] [facility] [address] [id number] [place] [address]- 6039 Jan, 2014 [facility] [place] [facility] [address] [facility] [id number] [place] [address]- 5768 Jan, 2014 [facility] [place] [facility] [address] [facility] [id number] [place] [address]- 6403 Jan, [facility] [place] [facility] [address] [facility] [id number] [place] [address]- 8323 Jan, [facility] [place] [facility] [address] [facility] [id number] [place] [address] Jan, [facility] [place] [facility] [address] [facility] [id number] [place] [address] Jan, [facility] [place] [facility] [address] [facility] [id number] [place] [address] Dec, [facility] [place] [facility] [address] [facility] [id number] [place] [address] Dec, [facility] [place] [facility] [address] [id number] [place] [address] Dec, [facility] [place] [facility] [address] [facility] [id number] [place] [address] Dec, [facility] [place] [facility] [address] [facility] [id number] [address] Nov, [facility] [place] [facility] [address] [id number] [place] [address] Nov, [facility] [place] [facility] [address] [id number] [place] [address] Nov, [facility] [place] [facility] [address] [id number] [place] [address] Nov, [facility] [place] [facility] [address] [id number] [place] [address] Nov, [facility] [place] [facility] [address] [id number] [place] [address] Nov, [facility] [place] [facility] [address] [id number] [place] [address] Nov, [facility] [place] [facility] [address] [id number] [place] [address] Oct, [facility] [place] [facility] [address] [id number] [place] [address] Oct, [facility] [place] [facility] [address] [id number] [place] [address] Oct, [facility] [place] [facility] [address] [id number] [place] [address] Oct, [facility] [place] [facility] [address] [id number] [place] [address] Oct, [facility] [place] [facility] [address] [id number] [place] [address] Oct, [facility] [place] [facility] [address] [id number] [place] [address] Oct, [facility] [place] [facility] [address] [id number] [place] [address] Oct, [facility] [place] [facility] [address] [id number] [place] [address] Oct, [facility] [place] [facility] [address] [id number] [place] [address] Oct, [facility] [place] [facility] [address] [id number] [place] [address] Oct, [facility] [place] [facility] [address] [id number] [place] [address] Oct, [facility] [place] [facility] [address] [id number] [place] [address] Sep, [facility] [place] [facility] [address] [id number] [place] [address] Sep, [facility] [place] [facility] [address] [id number] [place] [address] Sep, [facility] [place] [facility] [address] [id number] [place] [address] Sep, [facility] [place] [facility] [address] [id number] [place] [address] Jul, [facility] [place] [facility] [address] [id number] [place] [address] Jul, [facility] [place] [facility] [address] [id number] [place] [address] Jul, [facility] [place] [facility] [address] [id number] [place] [address] Jul, [facility] [place] [facility] [address] [id number] [place] [address] Jun, [facility] [place] [facility] [address] [id number] [place] [address]85 Jun, [facility] [place] [facility] [address] [id number] [place] [address] Jun, [facility] [place] [facility] [address] [id number] [place] [address] Jun, [facility] [place] [facility] [address] [id number] [place] [address]326 May, [facility] [place] [facility] [address] [id number] [place] [address] May, [facility] [address] [id number] [place] [address] 76[address] April, [facility] [address] [id number] [place] [address] April, [facility] [address] [id number] [place] [address] 1110 April, [facility] [address] [id number] [place] [address] 9711 April, [facility] [address] [id number] [place] [address] 2809 April, [facility] [address] [id number] [place] [address]- 1766 April, [facility] [address] [id number] [place] [address]- 4985 April, [facility] [address] [id number] [place] [address] 4318 April, [facility] [address] [id number] [place] [address] 8980 April, [facility] [address] [id number] [place] [address] Mar, [facility] [address] [id number] [place] [address] 1868 Mar, [facility] [address] [id number] [place] [address]- 1547 Mar, [facility] [place] [facility] [address] [id number] [place] [address] 5135 Mar, [facility] [address] [id number] [place] [address]- 9029 Jan, [facility] [address] [id number] [place] [address]- 3209 Jan, [facility] [place] [facility] [address] [id number] [place] [address]- 4821 Jan, [facility] [place] [facility] [address] [id number] [place] [address]- 8211 Jan, [facility] [place] [facility] [address] [id number] [place] [address]- 5429 Jan, [facility] [place] [facility] [address] [id number] [place] [address]- 0743 Jan, [facility] [place] [facility] [address] [id number] [place] [address]- 8461 Jan, [facility] [place] [facility] [address] [id number] [place] [address]- 4620 Jan, [facility] [place] [facility] [address] [id number] [place] [address]- 0829 Jan, [facility] [place] [facility] [address] [id number] [place] [address]- 6269 Jan, [facility] [place] [facility] [address] [id number] [place] [address] 2863 Jan, [facility] [place] [facility] [address] [id number] [place] [address] 2952 Jan, [facility] [place] [facility] [address] [id number] [place] [address]- 6225 Dec, [facility] [place] [facility] [address] [id number] [place] [address]- [address]126 Dec, [facility] [place] [facility] [address] [id number] [place] [address] 4831 Dec, [facility] [place] [facility] [address] [id number] [place] [address] 6[address] Dec, [facility] [place] [facility] [address] [id number] [place] [address] 7931 Nov, [facility] [place] [facility] [address] [id number] [place] [address]- 7193 Nov, [facility] [place] [facility] [address] [id number] [place] [address]- 0013 Nov, [facility] [place] [facility] [address] [id number] [place] [address]- 2814 Nov, [facility] [place] [facility] [address] [id number] [place] [address]- 4763 Oct, [facility] [place] [facility] [address] [id number] [place] [address]- 8646 Oct, [facility] [place] [facility] [address] [id number] [place] [address]- [address]87 Sep, [facility] [place] [facility] [address] [id number] [place] [address]- 9268 Sep, [facility] [place] [facility] [address] [id number] [place] [address]- [address]134 Jul, [facility] [place] [facility] [address] [id number] [place] [address]- 3941 Jul, [facility] [place] [facility] [address] [id number] [place] [address]- 1785 Jun, [facility] [place] [facility] [address] [id number] [place] [address]- 5716 Jun, [facility] [place] [facility] [address] [id number] [place] [address]- 4937 Jun, [facility] [place] [facility] [address] [id number] [place] [address]- 0096 May, [facility] [place] [facility] [address] [id number] [place] [address]- 6288 May, [facility] [place] [facility] [address] [id number] [place] [address]- 3484 May, [facility] [place] [facility] [address] [id number] [place] [address]- 8727 May, [facility] [place] [facility] [address] [id number] [place] [address] 1451 May, [facility] [address] [id number] [place] [address] 7113 April, [facility] [address] [id number] [place] [address] 3893 April, [facility] [address] [id number] [place] [address]- 9793 April, [facility] [address] [id number] [place] [address]- 0351 April, [facility] [address] [id number] [place] [address]- 0103 April, [facility] [address] [id number] [place] [address]- 3845 April, [facility] [address] [id number] [place] [address]- 7896 Mar, [facility] [address] [id number] [place] [address]- 7476 Mar, [facility] [address] [id number] [place] [address]- 9470 Jan, [facility] [address] [id number] [place] [address]- 2388 Jan, [facility] [address] [id number] [place] [address]- 9008 Jan, [facility] [address] [id number] [place] [address]- 0296 Jan, [facility] [place] [facility] [address] [id number] [place] [address]- 0835 Jan, [facility] [place] [facility] [address] [id number] [place] [address]- 5615 Jan, [facility] [address] [id number] [place] [address]- 9578 05 Jan, 2012 [facility] [address] [id number] [place] [address]- 4796 04 Jan, 2013 [facility] [address] [id number] [place] [address] 2546 03 Jan, 2013 [facility] [address] [id number] [place] [address]- 0236 02 Jan, 2013 [facility] [address] [id number] [place] [address]- 9212 Jan, [facility] [address] [id number] [place] [address]- 9798 Dec, [facility] [address] [id number] [place] [address]- 1835 Nov, [facility] [address] [id number] [place] [address]- 5844 Nov, [facility] [address] [id number] [place] [address]- 0000 Nov, [facility] [address] [id number] [place] [address]- 4029 Nov, [facility] [address] [id number] [place] [address]- 2938 Nov, [facility] [address] [id number] [place] [address]- 8022 Nov, [facility] [address] [id number] [place] [address]- 254 Nov, [facility] [address] [id number] [place] [address]- 4348 Nov, [facility] [address] [id number] [place] [address]- 5420 Nov, [facility] [address] [facility] [id number] [place] [address]- 9346 18 Nov, 2012 [facility] [place] [facility] [address] [id number] [place] [address]- 8733 18 Nov, 2012 [facility] [place] [facility] [address] [id number] [place] [address]- 9916 Nov, [facility] [place] [facility] [address] [id number] [place] [address]- 5176 Nov, [facility] [place] [facility] [address] [id number] [place] [address]- 0416 17 Oct, 2012 [facility] [place] [facility] [address] [id number] [place] [address]- 6016 Oct, [facility] [place] [facility] [address] [id number] [place] [address]- 5676 Oct, [facility] [place] [facility] [address] [id number] [place] [address]- 0915 19 Sep, 2012 [facility] [place] [facility] [address] [id number] [place] [address]- 9991 19 Sep, 2012 [facility] [place] [facility] [address] [id number] [place] [address]- 6215 10 Sep, 2012 [facility] [place] [facility] [address] [id number] [place] [address]- 1368 10 Sep, 2012 [facility] [place] [facility] [address] [id number] [place] [address]- 1526 27 Aug, 2012 [facility] [place] [facility] [address] [id number] [place] [address]- 6702 20 Aug, 2012 [facility] [place] [facility] [address] [id number] [place] [address]- 5208 24 Jul, 2012 [facility] [place] [facility] [address] [id number] [place] [address]- 0516 27 May, 2012 [facility] [place] [facility] [address] [id number] [place] [address]- 3614 14 May, 2012 [facility] [place] [facility] [address] [id number] [place] [address]- 5205 May, [facility] [address] [id number] [place] [address]- 8782 April, [facility] [place] [facility] [address] [id number] [place] [address]- 4298 Mar, [facility] [place] [facility] [address] [id number] [place] [address]- 8192 Mar, [facility] [place] [facility] [address] [id number] [place] [address]- 0761 Mar, [facility] [place] [facility] [address] [id number] [place] [address]- 8671 Jan, [facility] [place] [facility] [address] [id number] [place] [address]- 6624 Jan, [facility] [place] [facility] [address] [id number] [place] [address]- 2979 Jan, [facility] [place] [facility] [address] [id number] [place] [address]- 7556 Dec, [facility] [place] [facility] [address] [id number] [place] [address]- 5686 Dec, [facility] [place] [facility] [address] [id number] [place] [address]- 5976 Dec, [facility] [place] [facility] [address] [id number], [place] [address]- [address]261 Dec, [facility] [place] [facility] [address] [id number], [place] [address]- 5563 Nov, [facility] [place] [facility] [address] [id number] [place] [address]- 7670 Nov, [facility] [place] [facility] [address] [id number] [place] [address]- 8643 Nov, [facility] [place] [facility] [address] [id number] [place] [address]- 2546 Oct, [facility] [place] [facility] [address] [id number] [place] [address]- 9143 31 Sep, 2011 [facility] [address] [id number] [place] [address]- 0536 26 Sep, 2011 [facility] [place] [facility] [address] [id number] [place] [address] 2546 13 Sep, 2011 [facility] [address] [id number] [place] [address]- 9196 15 Nov, 2010 [facility] [place] [facility] [address] [id number] [place] [address] 2546 23 Oct, 2010 [facility] [place] [facility] [address] [id number] [place] [address]- 2120 19 Oct, 2010 [facility] [place] [facility] [address] [id number] [place] [address]- 3662 18 Oct, 2010 [facility] [address] [id number] [place] [address]- 8951 16 Oct, 2010 [facility] [place] [facility] [address] [id number] [place] [address]- 7169 11 Sep, 2010 [facility] [place] [facility] [address] [id number] [place] [address]- 8323 April, [facility] [address] [facility] [id number] [place] [address]- 8473 29 Nov, 2009 [facility] [place] [facility] [address] [id number] [place] [address] 2546 24 Nov, 2009 [facility] [place] [facility] [address] [id number] [place] [address]- 2541 22 Nov, 2009 [facility] [place] [facility] [address] [id number] [place] [address] 2546 10 Nov, 2009 [facility] [place] [facility] [address] [id number] [place] [address]- 2545 10 Nov, 2009 [facility] [place] [facility] [address] [id number] [place] [address] 2545 Oct, [facility] [address] [facility] [id number] [place] [address]- 0026 Oct, [facility] [address] [facility] [id number] [place] [address] Sep, [facility] [address] [facility] [id number] [place] [address]- 9123 Jan, IMMUNIZATIONS No Known Immunizations SOCIAL HISTORY [...] History Depression Medical History At [facility] 04/2016 Started on Eliquis Medical History Anemia [...] 3 inpatient psych treatments in past in [place] oct 2016 Hospitalization History medical [facility] Nov 2016
--- OUTSIDE RECORDS SUMMARY | 2018-08-20 13:04 | XMS REPORT ---
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 Name Role Phone WOLF AGUIRRE Unavailable PROBLEMS Type Condition ICD9-CM Code NBS11-TH Code Onset Dates Condition Status SNOMED Code Problem Sundowning F05 Active 550938521 Problem Constipation, unspecified constipation type K59.00 Active 31293691 Problem Reactive depression F32.9 Active 85806469 Problem Vascular dementia with behavior disturbance F01.51 Active 406168860278155 Problem Insomnia, unspecified type G47.00 Active 159468579 Problem Generalized anxiety disorder F41.1 Active 89678110 Problem Other chronic pain G89.29 Active 13641532 Problem Severe episode of recurrent major depressive disorder, without psychotic features F33.2 Active 26757461 Problem Slow transit constipation K59.01 Active 76636501 Problem 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 Active 695770404 Problem Obsessive thinking F42.8 Active 91054546 Problem Failure to thrive in adult R62.7 Active 131994235 Problem Dysthymic disorder F34.1 Active 87232641 Problem Hypertension I10 Active 46221162 Problem Mood disorder F39 Active 62351793 Problem Irritable bowel syndrome with diarrhea K58.0 Active 787359760 Problem Oropharyngeal dysphagia R13.12 Active 83595305 Problem 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 Active 00729367 Problem Other chronic pain G89.29 Active 61082427 Problem Primary insomnia F51.01 Active 1254596 Problem Poor appetite R63.0 Active 40591916 Problem Atherosclerotic heart disease of [place] 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 Active 024110371618831 Problem Iron deficiency anemia secondary to inadequate dietary iron intake D50.8 Active 351082953 Problem Coarse tremors G25.2 Active 05232733 Problem Gastroesophageal reflux disease without esophagitis K21.9 Active 389793158 Problem Essential hypertension I10 Active 22326136 ALLERGIES No Information ENCOUNTERS Encounter Location Date Diagnosis [facility] [place] [id number] [place] [address] 06822- 8718 Jun, [facility] [address] [id number] Jun, Left lower quadrant pain R10.32 and Left leg pain M79.605 [place] [id number] [place] [address] 82337- 4451 Jun, [facility] [address] [id number] Jun, Pain in left hip M25.552 ; Pain in right hip M25.551 and Primary insomnia F51.01 [place] [id number] [place] [address] 78531- 2983 Jun, [facility] [address] [id number] May, [place] [id number] [place] [address] 14197- 0950 May, [place] [id number] [place] [address] 25531- 9843 May, [facility] [address] [id number] May, Mood disorder F39 [place] [id number] [place] [address] 37863- 0774 May, [place] [id number] [place] [address] 97369- 6021 April, [facility] [address] [id number] April, Generalized anxiety disorder F41.1 ; Obsessive thinking F42.8 and Insomnia , unspecified type G47.00 [facility] [place] [address] [place] [address] 03921- 5119 April, [facility] [place] [id number] [place] [address] 12528- 4644 April, Rash of face R21 [facility] [place] [address] [place] [address] 66113- 1757 Mar, [facility] [place] [id number] [place] [address] 73258- 8317 Mar, [facility] [place] [address] [place] [address] 35942- 9897 Mar, [facility] [place] [id number] [place] [address] 97405- 7497 Jan, [facility] [place] [id number] [place] [address] 05269- 1068 Jan, [facility] [address] [id number] Jan, Constipation, unspecified constipation type K59.00 and Other chronic pain G89.29 [place] [id number] [place] [address] 06944- 5620 Jan, [facility] [address] [id number] Jan, Obsessive thinking F42.8 and Coarse tremors G25.2 [place] [id number] [place] [address] [id number] Jan, [place] [id number] [place] [address] [id number] Jan, [facility] [address] [id number] Jan, Generalized anxiety disorder F41.1 ; Obsessive thinking F42.8 ; Callus of foot L84 and 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 [place] [id number] [place] [address] 16825- 3797 Dec, Generalized anxiety disorder F41.1 and Severe episode of recurrent major depressive disorder, without psychotic features F33.2 [facility] [place] [id number] [place] [address] 86552- 0511 Nov, [facility] [place] [id number] [address]- 4562 Nov, [facility] [place] [address] [id number] Nov, Oropharyngeal dysphagia R13.12 ; Generalized anxiety disorder F41.1 and 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 [facility] [place] [address], [place] [address] 1906 Nov, [facility] [place] [facility] [id number] [place] [address] [id number] Nov, [facility], [place] [address], [place] [address]- 8283 Nov, [facility] [place] [address] [place] [address] 88432- 4635 Nov, [facility] [place] [address] [place] [address] 75693- 7945 Oct, Constipation, unspecified constipation type K59.00 and Mood disorder F39 [facility] [place] [address] [address]- 6291 Oct, [facility] [place] [facility] [id number] [place] [address] [id number] Sep, [facility] [place] [facility] [id number] [id number] Sep, [facility] [place] [facility] [id number] [place] [address] [id number] Sep, [facility] [place] [facility] [id number] [place] [address] [id number] Sep, [facility] [place] [address] [id number] Sep, Generalized abdominal pain R10.84 [facility] [place] [address], [place] [address]- 8356 Sep, [facility] [place] [facility] [id number] [id number] Sep, Generalized anxiety disorder F41.1 and Primary insomnia F51.01 [facility] [id number] [id number] Aug, [facility] [id number] [id number] Aug, Generalized anxiety disorder F41.1 [facility] [place] [id number] [address]- 4625 Jul, [facility] [place] [address] [id number] Jul, Obsessive thinking F42.8 [facility] [place] [id number] [address] 0720 Jul, Generalized anxiety disorder F41.1 and Irritable bowel syndrome with diarrhea K58.0 [facility] [id number] [id number] Jul, Generalized anxiety disorder F41.1 [facility] [id number] [id number] Jun, Generalized anxiety disorder F41.1 [facility] [place] [id number] [address]- 8874 May, [facility] [address] [id number] May, Generalized anxiety disorder F41.1 ; Irritable bowel syndrome with diarrhea K58.0 and Coarse tremors G25.2 [facility] [place] [address], [place] [address]- 9892 April, [facility] [place] [id number], [place] [address]- 8034 April, [facility] [place] [address], [place] [address]- 2652 April, [facility] [place] [id number], [place] [address]- 0971 Mar, [facility] [address] [id number] Mar, Severe episode of recurrent major depressive disorder, without psychotic features F33.2 and Pain in left hip M25.552 [facility] [place] [id number] [place] [address] 27937- 5367 Mar, [facility] [place] [id number] [place] [address] 13187- 9800 Mar, [facility] [place] [id number] [place] [address] 00760- 0737 Mar, [facility] [place] [id number] [place] [address] 28476- 8163 Mar, Pain in right hip M25.551 and Self-care deficit in patient living alone R46.89 [facility] [id number] [place] [address] 87527 -2817 Jan, Other chronic pain G89.29 ; Pain in left hip M25.552 and Slow transit constipation K59.01 [place] [id number] [place] [address] 35275- 5652 Jan, [place] [id number] [place] [address] 02448- 0460 Dec, Other depression F32.89 ; Constipation, unspecified constipation type K59.00 and Insomnia, unspecified type G47.00 [place] [id number] [place] [address] 70339- 8471 Nov, Reactive depression F32.9 ; Chronic idiopathic constipation K59.04 ; Generalized anxiety disorder F41.1 ; Coarse tremors G25.2 ; Gastroesophageal reflux disease without esophagitis K21.9 ; Dysthymic disorder F34.1 ; Vitamin deficiency, unspecified E56.9 and Primary insomnia F51.01 [place] [id number] [place] [address] 60288- 7763 Nov, [place] [id number] [place] [address] 37735- 9904 Nov, [place] [id number] [place] [address] 62138- 6903 Nov, [facility] [place] [id number] [place] [address] 07409- 6344 Nov, Reactive depression F32.9 ; Essential hypertension I10 ; Generalized anxiety disorder F41.1 ; Atherosclerotic heart disease of [place] 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 ; Pain in right hip M25.551 ; Other chronic pain G89.29 ; Chronic idiopathic constipation K59.04 ; Primary insomnia F51.01 ; Coarse tremors G25.2 ; Gastroesophageal reflux disease without esophagitis K21.9 ; Iron deficiency anemia secondary to inadequate dietary iron intake D50.8 and Vitamin deficiency, unspecified E56.9 [place] [address] 31912- 8046 Oct, [place] [address] 80218- 8872 Oct, [place] [address] 27447- 3242 Oct, [place] [address] 55449- 8675 Oct, Generalized anxiety disorder F41.1 ; Poor appetite R63.0 ; Dehydration E86.0 and Failure to thrive in adult R62.7 [place] [id number] [place] [address] 28996- 8922 Oct, Generalized anxiety disorder F41.1 and Failure to thrive in adult R62.7 [place] [id number] [place] [address] 83468- 8384 Oct, [place] [address] 73846- 9821 Oct, [facility] [id number] [place] [address] 67863 -0873 Sep, Vaginal discharge N89.8 and Acute cystitis with hematuria N30.01 [facility] [place] [address] 32432- 2414 Sep, [facility] [place] [address] [place] [address] 82528- 3722 Sep, [facility] [place] [id number] [place] [address] 03941- 5558 Sep, Dysthymic disorder F34.1 ; Acute vaginitis N76.0 ; Dysuria R30.0 and Vaginal yeast infection B37.3 [facility] [place] [id number] [place] [address] 12831- 4732 Aug, [facility] [place] [id number] [place] [address] 07841- 4665 Aug, [facility] [id number] [place] [address] 91875 -5264 Aug, Foul smelling urine R82.90 ; Rapid heart rate R00.0 and Flatulence R14.3 [place] [id number] [place] [address] 00430- 3788 Aug, [facility] [place] [id number] [place] [address] 82256- 8952 Jul, Constipation, unspecified constipation type K59.00 ; Weak R53.1 ; Poor appetite R63.0 ; Coronary artery disease involving [place] heart without angina pectoris, unspecified vessel or lesion type I25.10 ; Fatigue, unspecified type R53.83 ; Urinary incontinence, unspecified type R32 and Insomnia, unspecified type G47.00 [facility] [place] [address], [place] [address]- 3055 Jul, [facility] [place] [id number] [place] [address] 76246- 0987 Jun, Dysuria R30.0 [place] [id number] [place] [address] 24968- 8273 Jun, [facility] [place] [id number] [place] [address] 78342- 7285 Jun, Urinary tract infection, site not specified N39.0 ; Acute vaginitis N76.0 and Diarrhea, unspecified type R19.7 [facility], [place] [id number] [place] [address] 54730- 6186 May, [facility], [place] [id number] [place] [address] 38585- 1091 April, [facility] [id number] [place] [address] [id number] April, Encounter for dental examination Z01.20 [facility] [place] [id number] [place] [address] 07309- 2822 April, [facility], [place] [id number] [place] [address] 20170- 9589 April, Tremor R25.1 and Episodic tension-type headache, not intractable G44.219 [facility], [place] [id number] [place] [address] 91626- 1431 Mar, [facility], [place] [id number] [place] [address] 59366- 8528 Jan, Mood disorder F39 [facility] [id number] [place] [address] 79970 -6284 Jan, [facility], [place] [id number] [place] [address] 24280- 0349 Jan, [facility], [place] [id number] [place] [address] 29269- 8529 Jan, [facility], [place] [id number] [place] [address] 27079- 5478 Jan, [facility] [place] [id number] [place] [address] 39723- 8973 Jan, [facility], [place] [id number] [place] [address] 74225- 3475 Jan, [facility] [id number] [place] [address] 29052 -5007 Dec, Acute diarrhea R19.7 [facility] [place] [id number] [place] [address] 84643- 2553 Dec, [facility] [place] [id number] [place] [address] 20606- 5857 Dec, [facility] [place] [id number] [place] [address] 69468- 6930 Dec, [facility] [address] 80090 -9272 Dec, N&V (nausea and vomiting) R11.2 [facility] [place] [address] 87133- 3607 Dec, Generalized anxiety disorder F41.1 [facility] [place] [address] 52735- 5651 Dec, Generalized anxiety disorder F41.1 [facility] [place] [address] 99313- 9242 Nov, Post concussion syndrome F07.81 [facility] [place] [address] 39421- 6353 Nov, Generalized anxiety disorder F41.1 [facility] [place] [id number] [place] [address] 56100- 9714 Nov, [facility] [place] [id number] [place] [address] 46362- 3264 Nov, Generalized anxiety disorder F41.1 [facility] [id number] [place] [address] [id number] Oct, Dental caries K02.9 [facility] [place] [id number] [place] [address] 57497- 6109 Oct, [facility] [id number] [place] [address] [id number] Oct, Dental examination Z01.20 [facility] [id number] [place] [id number] 10 Oct, 2015 Encounter for dental examination Z01.20 [place] [address] 57427- 3934 Oct, CAD (coronary artery disease) I25.10 [facility] [place] [id number] [place] [address] 20582- 5273 Sep, Generalized anxiety disorder F41.1 [facility] [place] [address] 30856- 8191 Sep, [facility] [place] [address] 79554- 4506 Sep, Rash and other nonspecific skin eruption R21 and Yeast vaginitis B37.3 [place] [address] 47602- 4932 Sep, Generalized anxiety disorder F41.1 [place] [address] 09181- 6814 Aug, Insect bites 919.4 and Hemorrhoids 455.6 [place] [address] 89018- 5957 Aug, Generalized anxiety disorder 300.02 [facility] [place] [id number] [place] [address] 40701- 2442 08 Aug, 2015 [facility] [place] [address] 98003- 9864 Aug, [facility] [place] [address] 55585- 0073 Aug, Generalized anxiety disorder 300.02 ; No condition on [place] II V71.09 ; Heart problem 429.9 and Hypertension 401.9 [facility] [place] [address] 03698- 2730 Aug, [facility] [place] [address] 35421- 8875 Jul, [place] [address] [facility] [id number] [address]- 1473 Jul, [facility] [place] [address], [place] [address]- 7798 Jul, [facility] [place] [address] [facility] [id number], [place] [address]- 7005 Jul, [facility] [place] [address], [place] [address]- 4546 Jul, Rash 782.1 [facility] [place] [address], [place] [address]- 5137 Jul, UTI (urinary tract infection) 599.0 [facility] [place] [address], [place] [address]- 0088 Jul, [facility] [place] [address], [place] [address]- 1380 Jun, Dysthymia 300.4 and Anxiety 300.00 [facility] [place] [address], [place] [address]- 5857 Jun, 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 [facility] [place] [address], [place] [address]- 0479 May, [facility] [place] [id number], [place] [address]- 3155 May, [facility] [place] [id number], [place] [address]- 4781 May, Unspecified breast screening V76.10 [facility] [address] [id number] May, Dental examination V72.2 [facility] [place] [id number], [place] [address]- 4933 April, [facility] [place] [id number], [place] [address]- 3080 April, [facility] [id number] [id number] April, Dental examination V72.2 [facility] [address] [id number] [place] [id number] April, Dental examination V72.2 [facility] [address] [id number] [place] [address]- 5176 14 Mar, 2015 [facility] [address] [id number] [place] [address]- 2502 Mar, [facility] [address] [id number] [place] [address]- 3161 25 Jan, 2015 [facility] [address] [id number] [place]- 6487 25 Jan, 2015 [facility] [address] [id number] [place]- 5905 18 Jan, 2015 [facility] [address] [id number] [place] [address]- 9409 18 Jan, 2015 [facility] [address] [id number] [place] [address]- 0728 16 Jan, 2015 [facility] [address] [id number] [place] [address] 16 Jan, 2015 [facility] [address] [id number] [place] [address] 13 Jan, 2015 [facility] [address] [id number], [place] [address] 13 Jan, 2015 [facility] [place] [facility] [address] [id number] [place] [address] 11 Jan, 2015 [facility] [place] [facility] [address] [id number] [place] [address] [address] 11 Jan, 2015 [facility] [place] [facility] [address] [id number] [place] [address] 11 Jan, 2015 [facility] [place] [facility] [address] [id number], [place] [address] Jan, [facility] [place] [facility] [address] [id number] [place] [address] Jan, [facility] [place] [facility] [address] [id number] [place] [address] Jan, [facility] [place] [facility] [address] [facility] [id number] [place] [address] Jan, 2014 [facility] [place] [facility] [address] [id number] [place] [address] Jan, 2014 [facility] [place] [facility] [address] [id number] [place] [address] Jan, 2014 [facility] [place] [facility] [address] [facility] [id number] [place] [address] Jan, 2014 [facility] [place] [facility] [address] [facility] [id number] [place] [address] Jan, [facility] [place] [facility] [address] [facility] [id number] [place] [address] Jan, [facility] [place] [facility] [address] [facility] [id number] [place] [address] Jan, [facility] [place] [facility] [address] [facility] [id number] [place] [address] Jan, [facility] [place] [facility] [address] [facility] [id number] [place] [address] Dec, [facility] [place] [facility] [address] [facility] [id number] [place] [address] Dec, [facility] [place] [facility] [address] [id number] [place] [address] Dec, [facility] [place] [facility] [address] [facility] [id number] [place] [address] Dec, [facility] [place] [facility] [address] [facility] [id number], [place] [address] Nov, [facility] [place] [facility] [address] [id number] [place] [address] Nov, [facility] [place] [facility] [address] [id number] [place] [address] Nov, [facility] [place] [facility] [address] [id number] [place] [address] Nov, [facility] [place] [facility] [address] [id number] [place] [address] Nov, [facility] [place] [facility] [address] [id number] [place] [address] Nov, [facility] [place] [facility] [address] [id number] [place] [address] Nov, [facility] [place] [facility] [address] [id number] [place] [address] Oct, [facility] [place] [facility] [address] [id number] [place] [address] Oct, [facility] [place] [facility] [address] [id number] [place] [address] Oct, [facility] [place] [facility] [address] [id number] [place] [address] Oct, [facility] [place] [facility] [address] [id number] [place] [address]37 Oct, [facility] [place] [facility] [address] [id number] [place] [address] 2937 Oct, [facility] [place] [facility] [address] [id number] [place] [address] 0867 Oct, [facility] [place] [facility] [address] [id number] [place] [address] Oct, [facility] [place] [facility] [address] [id number] [place] [address] 2764 Oct, [facility] [place] [facility] [address] [id number] [place] [address] 5896 Oct, [facility] [place] [facility] [address] [id number] [place] [address] 7048 Oct, [facility] [place] [facility] [address] [id number] [place] [address] 9509 Oct, [facility] [place] [facility] [address] [id number] [place] [address] 0136 Sep, [facility] [place] [facility] [address] [id number] [place] [address] 9716 Sep, [facility] [place] [facility] [address] [id number] [place] [address] Sep, [facility] [place] [facility] [address] [id number] [place] [address] 4699 Sep, [facility] [place] [facility] [address] [id number] [place] [address] 3709 Jul, [facility] [place] [facility] [address] [id number] [place] [address]- 5494 Jul, [facility] [place] [facility] [address] [id number] [place] [address]- 1134 Jul, [facility] [place] [facility] [address] [id number] [place] [address] 4170 Jul, [facility] [place] [facility] [address] [id number] [place] [address] 3387 Jun, [facility] [place] [facility] [address] [id number] [place] [address]- 6681 Jun, [facility] [place] [facility] [address] [id number] [place] [address] 3923 Jun, [facility] [place] [facility] [address] [id number] [place] [address]- 4744 Jun, [facility] [place] [facility] [address] [id number] [place] [address] 495[address] May, [facility] [place] [facility] [address] [id number] [place] [address] 8210 May, [facility] [address] [id number] [place] [address] 0309 April, [facility] [address] [id number] [place] [address] 1713 April, [facility] [address] [id number] [place] [address] 8989 April, [facility] [address] [id number] [place] [address]- 5760 April, [facility] [address] [id number] [place] [address] 2028 April, [facility] [address] [id number] [place] [address] 8224 April, [facility] [address] [id number] [place] [address]- 7995 April, [facility] [address] [id number] [place] [address]- 5257 April, [facility] [address] [id number] [place] [address]- 3890 April, [facility] [address] [id number] [place] [address] 8658 Mar, [facility] [address] [id number] [place] [address] 8443 Mar, [facility] [address] [id number] [place] [address]- 4981 Mar, [facility] [place] [facility] [address] [id number] [place] [address] 9682 Mar, [facility] [address] [id number] [place] [address]- 8686 Jan, [facility] [address] [id number] [place] [address]- 4858 Jan, [facility] [place] [facility] [address] [id number] [place] [address]- 8352 Jan, [facility] [place] [facility] [address] [id number] [place] [address]- 8491 Jan, [facility] [place] [facility] [address] [id number] [place] [address]- 7284 Jan, [facility] [place] [facility] [address] [id number] [place] [address]- 5375 Jan, [facility] [place] [facility] [address] [id number] [place] [address]- 7601 Jan, [facility] [place] [facility] [address] [id number] [place] [address]- 6024 Jan, [facility] [place] [facility] [address] [id number] [place] [address]- 8830 Jan, [facility] [place] [facility] [address] [id number] [place] [address]- 7075 Jan, [facility] [place] [facility] [address] [id number] [place] [address]- 9867 Jan, [facility] [place] [facility] [address] [id number] [place] [address]- 9998 Jan, [facility] [place] [facility] [address] [id number] [place] [address]- 3933 Dec, [facility] [place] [facility] [address] [id number] [place] [address]- 7501 Dec, [facility] [place] [facility] [address] [id number] [place] [address]- 9451 Dec, [facility] [place] [facility] [address] [id number] [place] [address]- 5207 Dec, [facility] [place] [facility] [address] [id number] [place] [address]- 7014 Nov, [facility] [place] [facility] [address] [id number] [place] [address]- 5100 Nov, [facility] [place] [facility] [address] [id number] [place] [address]- 1551 Nov, [facility] [place] [facility] [address] [id number] [place] [address] 6442 Nov, [facility] [place] [facility] [address] [id number] [place] [address]- 5795 Oct, [facility] [place] [facility] [address] [id number] [place] [address]- 7060 Oct, [facility] [place] [facility] [address] [id number] [place] [address]- 8836 Sep, [facility] [place] [facility] [address] [id number] [place] [address]- 1583 Sep, [facility] [place] [facility] [address] [id number] [place] [address]- 4255 Jul, [facility] [place] [facility] [address] [id number] [place] [address]- 8773 Jul, [facility] [place] [facility] [address] [id number] [place] [address]- 8049 Jun, [facility] [place] [facility] [address] [id number] [place] [address]- 4300 Jun, [facility] [place] [facility] [address] [id number] [place] [address]- 7847 Jun, [facility] [place] [facility] [address] [id number] [place] [address]- 1824 May, [facility] [place] [facility] [address] [id number] [place] [address]- 4292 May, [facility] [place] [facility] [address] [id number] [place] [address]- 7530 May, [facility] [place] [facility] [address] [id number] [place] [address]- 8670 May, [facility] [place] [facility] [address] [id number] [place] [address]- 9936 May, [facility] [address] [id number] [place] [address]- 9373 April, [facility] [address] [id number] [place] [address]- 3102 April, [facility] [address] [id number] [place] [address]- 1764 April, [facility] [address] [id number] [place] [address]- 0998 April, [facility] [address] [id number] [place] [address]- 0468 April, [facility] [address] [id number] [place] [address]- 0260 April, [facility] [address] [id number] [place] [address]- 3910 Mar, [facility] [address] [id number] [place] [address]- 6497 Mar, [facility] [address] [id number] [place] [address]- 9078 Jan, [facility] [address] [id number] [place] [address]- 0387 Jan, [facility] [address] [id number] [place] [address]- 9319 Jan, [facility] [address] [id number] [place] [address]- 9290 Jan, [facility] [place] [facility] [address] [id number] [place] [address]- 6305 Jan, [facility] [place] [facility] [address] [id number] [place] [address]- 4071 Jan, [facility] [address] [id number] [place] [address]- 6142 05 Jan, 2012 [facility] [address] [id number] [place] [address]- 8536 04 Jan, 2013 [facility] [address] [id number] [place] [address] 2546 03 Jan, 2013 [facility] [address] [id number] [place] [address]- 8236 02 Jan, 2013 [facility] [address] [id number] [place] [address]- 8664 Jan, [facility] [address] [id number] [place] [address]- 2738 Dec, [facility] [address] [id number] [place] [address]- 1549 Nov, [facility] [address] [id number] [place] [address]- 7654 Nov, [facility] [address] [id number] [place] [address]- 6227 Nov, [facility] [address] [id number] [place] [address]- 3678 Nov, [facility] [address] [id number] [place] [address]- 9245 Nov, [facility] [address] [id number] [place] [address]- 5322 Nov, [facility] [address] [id number] [place] [address]- 2544 Nov, [facility] [address] [id number] [place] [address]- 0277 Nov, [facility] [address] [id number] [place] [address]- 8488 Nov, [facility] [address] [facility] [id number] [place] [address]- 6288 18 Nov, 2012 [facility] [place] [facility] [address] [id number] [place] [address]- 3995 18 Nov, 2012 [facility] [place] [facility] [address] [id number] [place] [address]- 9246 Nov, [facility] [place] [facility] [address] [id number] [place] [address]- 9856 Nov, [facility] [place] [facility] [address] [id number] [place] [address]- 1486 17 Oct, 2012 [facility] [place] [facility] [address] [id number] [place] [address]- 4076 Oct, [facility] [place] [facility] [address] [id number] [place] [address]- 9456 Oct, [facility] [place] [facility] [address] [id number] [place] [address]- 0955 19 Sep, 2012 [facility] [place] [facility] [address] [id number] [place] [address]- 5000 19 Sep, 2012 [facility] [place] [facility] [address] [id number] [place] [address]- 2455 10 Sep, 2012 [facility] [place] [facility] [address] [id number] [place] [address]- 9965 10 Sep, 2012 [facility] [place] [facility] [address] [id number] [place] [address]- 8269 27 Aug, 2012 [facility] [place] [facility] [address] [id number] [place] [address]- 5653 20 Aug, 2012 [facility] [place] [facility] [address] [id number] [place] [address]- 1006 24 Jul, 2012 [facility] [place] [facility] [address] [id number] [place] [address]- 7246 27 May, 2012 [facility] [place] [facility] [address] [id number] [place] [address]- 7141 14 May, 2012 [facility] [place] [facility] [address] [id number] [place] [address]- 5062 May, [facility] [address] [id number] [place] [address]- 9444 April, [facility] [place] [facility] [address] [id number] [place] [address]- 7204 Mar, [facility] [place] [facility] [address] [id number] [place] [address]- 9380 Mar, [facility] [place] [facility] [address] [id number] [place] [address]- 9842 Mar, [facility] [place] [facility] [address] [id number] [place] [address]- 3727 Jan, [facility] [place] [facility] [address] [id number] [place] [address]- 8433 Jan, [facility] [place] [facility] [address] [id number] [place] [address]- 9268 Jan, [facility] [place] [facility] [address] [id number] [place] [address]- 5042 Dec, [facility] [place] [facility] [address] [id number] [place] [address]- 5276 Dec, [facility] [place] [facility] [address] [id number] [place] [address]- 5478 Dec, [facility] [place] [facility] [address] [id number], [place] [address]- 1883 Dec, [facility] [place] [facility] [address] [id number], [place] [address]- 7200 Nov, [facility] [place] [facility] [address] [id number] [place] [address]- 5276 Nov, [facility] [place] [facility] [address] [id number] [place] [address]- 7379 Nov, [facility] [place] [facility] [address] [id number] [place] [address]- 2546 Oct, [facility] [place] [facility] [address] [id number] [place] [address]- 2620 31 Sep, 2011 [facility] [address] [id number] [place] [address]- 3706 26 Sep, 2011 [facility] [place] [facility] [address] [id number] [place] [address] 2546 13 Sep, 2011 [facility] [address] [id number] [place] [address]- 3386 15 Nov, 2010 [facility] [place] [facility] [address] [id number] [place] [address] 2546 23 Oct, 2010 [facility] [place] [facility] [address] [id number] [place] [address]- 7975 19 Oct, 2010 [facility] [place] [facility] [address] [id number] [place] [address]- 0869 18 Oct, 2010 [facility] [address] [id number] [place] [address]- 5823 16 Oct, 2010 [facility] [place] [facility] [address] [id number] [place] [address]- 3533 11 Sep, 2010 [facility] [place] [facility] [address] [id number] [place] [address]- 3386 April, [facility] [address] [facility] [id number] [place] [address]- 3051 29 Nov, 2009 [facility] [place] [facility] [address] [id number] [place] [address] 2546 24 Nov, 2009 [facility] [place] [facility] [address] [id number] [place] [address]- 2544 22 Nov, 2009 [facility] [place] [facility] [address] [id number] [place] [address] 2546 10 Nov, 2009 [facility] [place] [facility] [address] [id number] [place] [address]- 2540 10 Nov, 2009 [facility] [place] [facility] [address] [id number] [place] [address] 2547 Oct, [facility] [place] [address] [facility] [id number] [place] [address]- 5208 Oct, [facility] [place] [address] [facility] [id number] [place] [address]- 6755 Sep, [facility] [place] [address] [facility] [id number] [place] [address]- 4180 Jan, IMMUNIZATIONS No Known Immunizations SOCIAL HISTORY Never Assessed REASON FOR VISIT constipation complaints PLAN OF CARE VITAL SIGNS MEDICATIONS Medication Instructions Dosage Frequency Start Date End Date Duration Status Colace 100 mg Orally Once a day 1 capsule 24h Mar, 30 day(s) Active RESULTS No Results PROCEDURES No Known procedures INSTRUCTIONS MEDICATIONS ADMINISTERED No Known Medications MEDICAL (GENERAL) HISTORY Type Description Date Medical History Hypertension Medical History Heart disease CABG X3 Stress test 07/2015 Medical History Gastric ulcer Medical History Hyperlipidemia Medical History Headache syndrome Medical History Psychiatric disorders-depression/racing thoughts Medical History Depression Medical History At [facility] 04/2016 Started on Eliquis Medical History Anemia 04/2016 postsurgical hip fx Surgical History right hip replacement w/ Dr. Bruce 2011 Surgical History triple bypass surgery 2003 Surgical History S/P left hip IM Nail (Intertrechanteric hip fx) 04/28/16 Hospitalization History surgeries Hospitalization History Hypertension Hospitalization History ER for a concussion 11/24/15 Hospitalization History Intertrechanteric hip fx 04/27/16 Hospitalization History [facility] (inpatient [facility] 2 times) Hx of 3 inpatient psych treatments in past in [place] oct 2016 [facility] 2016
--- OUTSIDE RECORDS SUMMARY | 2018-08-20 13:05 | XMS REPORT ---
Author Author WOLF AGUIRRE [facility] Address [address] [place] [address] Care Team Providers Care Fruit Thinner Name Role Phone WOLF AGUIRRE Unavailable PROBLEMS Type Condition ICD9-CM Code GAA46-WH Code Onset Dates Condition Status SNOMED Code Problem Sundowning F05 Active 483734619 Problem Constipation, unspecified constipation type K59.00 Active 74890472 Problem Reactive depression F32.9 Active 06183617 Problem Vascular dementia with behavior disturbance F01.51 Active 035973321360655 Problem Insomnia, unspecified type G47.00 Active 571220916 Problem Generalized anxiety disorder F41.1 Active 58536625 Problem Other chronic pain G89.29 Active 69032409 Problem Severe episode of recurrent major depressive disorder, without psychotic features F33.2 Active 68722304 Problem Slow transit constipation K59.01 Active 05904587 Problem 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 Active 507330028 Problem Obsessive thinking F42.8 Active 41337706 Problem Failure to thrive in adult R62.7 Active 477271016 Problem Dysthymic disorder F34.1 Active 15033571 Problem Hypertension I10 Active 13777642 Problem Mood disorder F39 Active 59050125 Problem Irritable bowel syndrome with diarrhea K58.0 Active 959514857 Problem Oropharyngeal dysphagia R13.12 Active 45683642 Problem 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 Active 49283634 Problem Other chronic pain G89.29 Active 36306845 Problem Primary insomnia F51.01 Active 4901462 Problem Poor appetite R63.0 Active 04517332 Problem Atherosclerotic heart disease of [place] 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 Active 368682348112491 Problem Iron deficiency anemia secondary to inadequate dietary iron intake D50.8 Active 602957503 Problem Coarse tremors G25.2 Active 54003342 Problem Gastroesophageal reflux disease without esophagitis K21.9 Active 892613418 Problem Essential hypertension I10 Active 35473412 ALLERGIES No Information ENCOUNTERS Encounter Location Date Diagnosis [facility] [id number] [place] [address] 62811- 2792 Jun, [facility] [address] [id number] Jun, Left lower quadrant pain R10.32 and Left leg pain M79.605 [facility] [id number] [place] [address] 16067- 2664 Jun, [facility] [address] [id number] Jun, Pain in left hip M25.552 ; Pain in right hip M25.551 and Primary insomnia F51.01 [facility] [id number] [place] [address] 04953- 9270 Jun, [facility] [address] [id number] May, [facility] [id number] [place] [address] 74214- 2103 May, [facility] [id number] [place] [address] 55666- 5315 May, [facility] [address] [id number] May, Mood disorder F39 [facility] [id number] [place] [address] 32186- 2880 May, [facility] [id number] [place] [address] 74939- 4828 April, [facility] [address] [id number] April, Generalized anxiety disorder F41.1 ; Obsessive thinking F42.8 and Insomnia , unspecified type G47.00 [facility] [address] [place] [address] 72725- 9274 April, [facility] [id number] [place] [address] 10411- 3074 April, Rash of face R21 [facility] [address] [place] [address] 83260- 1708 Mar, [facility] [id number] [place] [address] 33082- 6381 Mar, [facility] [address] [place] [address] 00325- 4955 Mar, [facility] [id number] [place] [address] 12383- 9455 Jan, [facility] [id number] [place] [address] 04971- 2062 Jan, [facility] [address] [id number] Jan, Constipation, unspecified constipation type K59.00 and Other chronic pain G89.29 [facility] [id number] [place] [address] 24579- 8767 Jan, [facility] [address] [id number] Jan, Obsessive thinking F42.8 and Coarse tremors G25.2 [facility] [id number] [place] [address] [id number] Jan, [facility] [id number] [place] [address] [phone] Jan, [facility] [address] [id number] Jan, Generalized anxiety disorder F41.1 ; Obsessive thinking F42.8 ; Callus of foot L84 and 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 [facility] [id number] [place] [address] 12442- 6594 Dec, Generalized anxiety disorder F41.1 and Severe episode of recurrent major depressive disorder, without psychotic features F33.2 [facility] [id number] [place] [address] 65334- 6657 Nov, [facility] [id number] [address]- 3092 Nov, [facility] [place] [address] [place] [phone] Nov, Oropharyngeal dysphagia R13.12 ; Generalized anxiety disorder F41.1 and 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 [facility] [address], [place] [address]- 3439 Nov, [facility] [id number] [place] [address] [phone] Nov, [facility] [address] [address]- 6273 Nov, [facility] [address] [place] [address] 91302- 1824 Nov, [facility] [address] [place] [address] 64596- 6201 Oct, Constipation, unspecified constipation type K59.00 and Mood disorder F39 [facility] [address] [address]- 1054 Oct, [facility] [id number] [place] [address] [phone] Sep, [facility] [id number] [id number] Sep, [facility] [id number] [place] [address] [phone] Sep, [facility] [id number] [place] [address] [phone] Sep, [facility] [place] [address] [id number] Sep, Generalized abdominal pain R10.84 [facility] [address] [address]- 6386 Sep, [facility] [id number] [id number] Sep, Generalized anxiety disorder F41.1 and Primary insomnia F51.01 [facility] [id number] [id number] Aug, [facility] [id number] [id number] Aug, Generalized anxiety disorder F41.1 [facility] [id number] [address]- 5064 Jul, [facility] [place] [address] [phone] Jul, Obsessive thinking F42.8 [facility] [id number] [address] 2510 Jul, Generalized anxiety disorder F41.1 and Irritable bowel syndrome with diarrhea K58.0 [facility] [id number] [id number] Jul, Generalized anxiety disorder F41.1 [facility] [id number] [id number] Jun, Generalized anxiety disorder F41.1 [facility] [id number] [address]- 0994 May, [facility] [address] [id number] May, Generalized anxiety disorder F41.1 ; Irritable bowel syndrome with diarrhea K58.0 and Coarse tremors G25.2 [facility] [address], [place] [address]- 7006 April, [facility] [id number], [place] [address]- 1030 April, [facility] [address], [place] [address]- 5876 April, [facility] [id number], [place] [address]- 1234 Mar, [facility] [address] [id number] Mar, Severe episode of recurrent major depressive disorder, without psychotic features F33.2 and Pain in left hip M25.552 [facility] [id number] [place] [address] 90367- 0869 Mar, [facility] [id number] [place] [address] 43535- 0170 Mar, [facility] [id number] [place] [address] 40815- 4224 Mar, [facility] [id number] [place] [address] 46494- 8088 Mar, Pain in right hip M25.551 and Self-care deficit in patient living alone R46.89 [facility] [id number] [place] [address] 40778 -0492 Jan, Other chronic pain G89.29 ; Pain in left hip M25.552 and Slow transit constipation K59.01 [facility] [id number] [place] [address] 68815- 5017 Jan, [facility] [id number] [place] [address] 86412- 0312 Dec, Other depression F32.89 ; Constipation, unspecified constipation type K59.00 and Insomnia, unspecified type G47.00 [facility] [id number] [place] [address] 61797- 3176 Nov, Reactive depression F32.9 ; Chronic idiopathic constipation K59.04 ; Generalized anxiety disorder F41.1 ; Coarse tremors G25.2 ; Gastroesophageal reflux disease without esophagitis K21.9 ; Dysthymic disorder F34.1 ; Vitamin deficiency, unspecified E56.9 and Primary insomnia F51.01 [facility] [id number] [place] [address] 79285- 9944 Nov, [facility] [id number] [place] [address] 79550- 1743 Nov, [facility] [id number] [place] [address] 06101- 2800 Nov, [facility] [id number] [place] [address] 61438- 4901 Nov, Reactive depression F32.9 ; Essential hypertension I10 ; Generalized anxiety disorder F41.1 ; Atherosclerotic heart disease of [place] 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 ; Pain in right hip M25.551 ; Other chronic pain G89.29 ; Chronic idiopathic constipation K59.04 ; Primary insomnia F51.01 ; Coarse tremors G25.2 ; Gastroesophageal reflux disease without esophagitis K21.9 ; Iron deficiency anemia secondary to inadequate dietary iron intake D50.8 and Vitamin deficiency, unspecified E56.9 [facility] [address] 66951- 9883 Oct, [facility] [address] 59786- 9403 Oct, [facility] [address] 48465- 0961 Oct, [facility] [address] 77605- 9932 Oct, Generalized anxiety disorder F41.1 ; Poor appetite R63.0 ; Dehydration E86.0 and Failure to thrive in adult R62.7 [facility] [id number] [place] [address] 92886- 1199 Oct, Generalized anxiety disorder F41.1 and Failure to thrive in adult R62.7 [facility] [id number] [place] [address] 70020- 4568 Oct, [facility] [address] 81399- 7379 Oct, [facility] [id number] [place] [address] 74853 -0654 Sep, Vaginal discharge N89.8 and Acute cystitis with hematuria N30.01 [facility] [address] 13633- 5977 Sep, [facility] [address] [place] [address] 67036- 3610 Sep, [facility] [id number] [place] [address] 02999- 8342 Sep, Dysthymic disorder F34.1 ; Acute vaginitis N76.0 ; Dysuria R30.0 and Vaginal yeast infection B37.3 [facility] [id number] [place] [address] 96696- 2202 Aug, [facility] [id number] [place] [address] 15213- 8997 Aug, [facility] [id number] [place] [address] 99629 -5403 Aug, Foul smelling urine R82.90 ; Rapid heart rate R00.0 and Flatulence R14.3 [facility] [id number] [place] [address] 06620- 4779 Aug, [facility] [id number] [place] [address] 84320- 8273 Jul, Constipation, unspecified constipation type K59.00 ; Weak R53.1 ; Poor appetite R63.0 ; Coronary artery disease involving [place] heart without angina pectoris, unspecified vessel or lesion type I25.10 ; Fatigue, unspecified type R53.83 ; Urinary incontinence, unspecified type R32 and Insomnia, unspecified type G47.00 [facility] [address], [place] [address]- 5158 Jul, [facility] [id number] [place] [address] 26650- 9736 Jun, Dysuria R30.0 [facility] [id number] [place] [address] 69627- 2651 Jun, [facility] [id number] [place] [address] 99259- 1399 Jun, Urinary tract infection, site not specified N39.0 ; Acute vaginitis N76.0 and Diarrhea, unspecified type R19.7 [facility] [id number] [place] [address] 88092- 2586 May, [facility] [id number] [place] [address] 94382- 1989 April, [facility] [id number] [place] [address] [phone] April, Encounter for dental examination Z01.20 [facility] [id number] [place] [address] 18949- 7845 April, [facility] [id number] [place] [address] 52149- 2023 April, Tremor R25.1 and Episodic tension-type headache, not intractable G44.219 [facility] [id number] [place] [address] 08216- 0986 Mar, [facility] [id number] [place] [address] 14251- 0528 Jan, Mood disorder F39 [facility] [id number] [place] [address] 28900 -5990 Jan, [facility] [id number] [place] [address] 21138- 6300 Jan, [facility] [id number] [place] [address] 03211- 6102 Jan, [facility] [id number] [place] [address] 24515- 7612 Jan, [facility] [id number] [place] [address] 42005- 5829 Jan, [facility] [id number] [place] [address] 72585- 3709 Jan, [facility] [id number] [place] [address] 53185 -8969 Dec, Acute diarrhea R19.7 [facility] [id number] [place] [address] 99987- 0314 Dec, [facility] [id number] [place] [address] 08894- 6794 Dec, [facility] [id number] [place] [address] 07423- 0338 Dec, [facility] [address] 00092 -1247 Dec, N&V (nausea and vomiting) R11.2 [facility] [address] 71871- 5620 Dec, Generalized anxiety disorder F41.1 [facility] [address] 12243- 5498 Dec, Generalized anxiety disorder F41.1 [facility] [address] 81037- 7820 Nov, Post concussion syndrome F07.81 [facility] [address] 40451- 8448 Nov, Generalized anxiety disorder F41.1 [facility] [id number] [place] [address] 13966- 1713 Nov, [facility] [id number] [place] [address] 67798- 9111 Nov, Generalized anxiety disorder F41.1 [facility] [id number] [place] [address] [id number] Oct, Dental caries K02.9 [facility] [id number] [place] [address] 76389- 8837 Oct, [facility] [id number] [place] [address] [id number] Oct, Dental examination Z01.20 [facility] [id number] [place] [id number] 10 Oct, 2015 Encounter for dental examination Z01.20 [facility] [address] 53109- 9871 Oct, CAD (coronary artery disease) I25.10 [facility] [id number] [place] [address] 65816- 8207 Sep, Generalized anxiety disorder F41.1 [facility] [address] 20740- 5798 Sep, [facility] [address] 02175- 4799 Sep, Rash and other nonspecific skin eruption R21 and Yeast vaginitis B37.3 [facility] [address] 61144- 6951 Sep, Generalized anxiety disorder F41.1 [facility] [address] 65760- 9954 Aug, Insect bites 919.4 and Hemorrhoids 455.6 [facility] [address] 14779- 2493 Aug, Generalized anxiety disorder 300.02 [facility] [id number] [place] [address] 95313- 7252 08 Aug, 2015 [facility] [address] 05046- 0293 Aug, [facility] [address] 29995- 3680 Aug, Generalized anxiety disorder 300.02 ; No condition on [place] II V71.09 ; Heart problem 429.9 and Hypertension 401.9 [facility] [address] 00565- 9951 Aug, [facility] [address] 07928- 2637 Jul, [facility] [address] [facility] [id number] [address]- 5276 Jul, [facility] [address], [place] [address]- 2426 Jul, [facility] [address] [facility] [id number], [place] [address]- 4629 Jul, [facility] [address] [address]- 1990 Jul, Rash 782.1 [facility] [address] [address]- 7631 Jul, UTI (urinary tract infection) 599.0 [facility] [address] [address]- 7044 Jul, [facility] [address], [place] [address]- 1074 Jun, Dysthymia 300.4 and Anxiety 300.00 [facility] [address] [address]- 6866 Jun, 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 [address] [address] May, Dental examination V72.2 [facility] [id number], [place] [address]- 7506 April, [facility] [id number], [place] [address]- 6197 April, [facility] [address] [id number] April, Dental examination V72.2 [facility] [address] [id number] [place] [id number] April, Dental examination V72.2 [facility] [address] [id number] [place] [address]- 2416 14 Mar, 2015 [facility] [address] [id number] [place] [address]- 7136 Mar, [facility] [address] [id number] [place] [address]- 2679 25 Jan, 2015 [facility] [address] [id number] [place]- 1022 25 Jan, 2015 [facility] [address] [id number] [place]- 7538 18 Jan, 2015 [facility] [address] [id number] [place] [address]- 1310 18 Jan, 2015 [facility] [address] [id number] [place] [address]- 1337 16 Jan, 2015 [facility] [address] [id number] [place] [address]- 9304 16 Jan, 2015 [facility] [address] [id number] [place] [address]- 3215 13 Jan, 2015 [facility] [address] [id number], [place] [address]- 6929 13 Jan, 2015 [facility] [place] [facility] [address] [id number] [place]- 6698 11 Jan, 2015 [facility] [place] [facility] [address] [id number] [place]- 4119 11 Jan, 2015 [facility] [place] [facility] [address] [id number] [place] [address]- 5972 11 Jan, 2015 [facility] [place] [facility] [address] [id number], [place] [address]- 3583 Jan, [facility] [place] [facility] [address] [id number] [place] [address]- 0944 Jan, [facility] [place] [facility] [address] [id number] [place] [address]- 3251 Jan, [facility] [place] [facility] [address] [facility] [id number] [place] [address]- 7182 Jan, 2014 [facility] [place] [facility] [address] [id number] [place] [address]- 4993 Jan, 2014 [facility] [place] [facility] [address] [id number] [place] [address]- 9114 Jan, 2014 [facility] [place] [facility] [address] [facility] [id number] [place] [address]- 9102 Jan, 2014 [facility] [place] [facility] [address] [facility] [id number] [place] [address]- 5110 Jan, [facility] [place] [facility] [address] [facility] [id number] [place] [address]- 0735 Jan, [facility] [place] [facility] [address] [facility] [id number] [place] [address]- 9109 Jan, [facility] [place] [facility] [address] [facility] [id number] [place] [address]- 2172 Jan, [facility] [place] [facility] [address] [facility] [id number] [place] [address]- 0096 Dec, [facility] [place] [facility] [address] [facility] [id number] [place] [address]- 1185 Dec, [facility] [place] [facility] [address] [id number] [place] [address] Dec, [facility] [place] [facility] [address] [facility] [id number] [place] [address] Dec, [facility] [place] [facility] [address] [facility] [id number], [place] [address] Nov, [facility] [place] [facility] [address] [id number] [place] [address] Nov, [facility] [place] [facility] [address] [id number] [place] [address] Nov, [facility] [place] [facility] [address] [id number] [place] [address] Nov, [facility] [place] [facility] [address] [id number] [place] [address] Nov, [facility] [place] [facility] [address] [id number] [place] [address] Nov, [facility] [place] [facility] [address] [id number] [place] [address] Nov, [facility] [place] [facility] [address] [id number] [place] [address] Oct, [facility] [place] [facility] [address] [id number] [place] [address] Oct, [facility] [place] [facility] [address] [id number] [place] [address] Oct, [facility] [place] [facility] [address] [id number] [place] [address] Oct, [facility] [place] [facility] [address] [id number] [place] [address] Oct, [facility] [place] [facility] [address] [id number] [place] [address] Oct, [facility] [place] [facility] [address] [id number] [place] [address] Oct, [facility] [place] [facility] [address] [id number] [place] [address] Oct, [facility] [place] [facility] [address] [id number] [place] [address] Oct, [facility] [place] [facility] [address] [id number] [place] [address] Oct, [facility] [place] [facility] [address] [id number] [place] [address] Oct, [facility] [place] [facility] [address] [id number] [place] [address] Oct, [facility] [place] [facility] [address] [id number] [place] [address] Sep, [facility] [place] [facility] [address] [id number] [place] [address] Sep, [facility] [place] [facility] [address] [id number] [place] [address] Sep, [facility] [place] [facility] [address] [id number] [place] [address] Sep, [facility] [place] [facility] [address] [id number] [place] [address] Jul, [facility] [place] [facility] [address] [id number] [place] [address] 3716 Jul, [facility] [place] [facility] [address] [id number] [place] [address]90 Jul, [facility] [place] [facility] [address] [id number] [place] [address] 68[address] Jul, [facility] [place] [facility] [address] [id number] [place] [address] Jun, [facility] [place] [facility] [address] [id number] [place] [address] 1405 Jun, [facility] [place] [facility] [address] [id number] [place] [address] 0140 Jun, [facility] [place] [facility] [address] [id number] [place] [address] 9713 Jun, [facility] [place] [facility] [address] [id number] [place] [address] 0142 May, [facility] [place] [facility] [address] [id number] [place] [address] 0912 May, [facility] [address] [id number] [place] [address] 89[address] April, [facility] [address] [id number] [place] [address] 0961 April, [facility] [address] [id number] [place] [address] 0695 April, [facility] [address] [id number] [place] [address] 5097 April, [facility] [address] [id number] [place] [address] 3612 April, [facility] [address] [id number] [place] [address] 1157 April, [facility] [address] [id number] [place] [address] 5130 April, [facility] [address] [id number] [place] [address] 5696 April, [facility] [address] [id number] [place] [address] 7074 April, [facility] [address] [id number] [place] [address] 7264 Mar, [facility] [address] [id number] [place] [address] 2135 Mar, [facility] [address] [id number] [place] [address] 8[address] Mar, [facility] [place] [facility] [address] [id number] [place] [address] 6993 Mar, [facility] [address] [id number] [place] [address] 9232 Jan, [facility] [address] [id number] [place] [address] 9383 Jan, [facility] [place] [facility] [address] [id number] [place] [address] 3039 Jan, [facility] [place] [facility] [address] [id number] [place] [address] 4320 Jan, [facility] [place] [facility] [address] [id number] [place] [address] 4196 Jan, [facility] [place] [facility] [address] [id number] [place] [address] 0782 Jan, [facility] [place] [facility] [address] [id number] [place] [address] 8513 Jan, [facility] [place] [facility] [address] [id number] [place] [address] 1038 Jan, [facility] [place] [facility] [address] [id number] [place] [address] 8174 Jan, [facility] [place] [facility] [address] [id number] [place] [address] 6317 Jan, [facility] [place] [facility] [address] [id number] [place] [address] 7327 Jan, [facility] [place] [facility] [address] [id number] [place] [address] 1072 Jan, [facility] [place] [facility] [address] [id number] [place] [address] 2009 Dec, [facility] [place] [facility] [address] [id number] [place] [address] 8412 Dec, [facility] [place] [facility] [address] [id number] [place] [address] 2887 Dec, [facility] [place] [facility] [address] [id number] [place] [address] 3349 Dec, [facility] [place] [facility] [address] [id number] [place] [address] Nov, [facility] [place] [facility] [address] [id number] [place] [address] 5635 Nov, [facility] [place] [facility] [address] [id number] [place] [address]- 5780 Nov, [facility] [place] [facility] [address] [id number] [place] [address] 7947 Nov, [facility] [place] [facility] [address] [id number] [place] [address]- 1211 Oct, [facility] [place] [facility] [address] [id number] [place] [address]- 8515 Oct, [facility] [place] [facility] [address] [id number] [place] [address] 9550 Sep, [facility] [place] [facility] [address] [id number] [place] [address]- 7664 Sep, [facility] [place] [facility] [address] [id number] [place] [address]- 9886 Jul, [facility] [place] [facility] [address] [id number] [place] [address]- 9476 Jul, [facility] [place] [facility] [address] [id number] [place] [address]- 8061 Jun, [facility] [place] [facility] [address] [id number] [place] [address] 3772 Jun, [facility] [place] [facility] [address] [id number] [place] [address] 7522 Jun, [facility] [place] [facility] [address] [id number] [place] [address]- 5803 May, [facility] [place] [facility] [address] [id number] [place] [address] 2791 May, [facility] [place] [facility] [address] [id number] [place] [address]- 4158 May, [facility] [place] [facility] [address] [id number] [place] [address]- 3302 May, [facility] [place] [facility] [address] [id number] [place] [address]- 9564 May, [facility] [address] [id number] [place] [address] 3994 April, [facility] [address] [id number] [place] [address]- 0385 April, [facility] [address] [id number] [place] [address]- 1474 April, [facility] [address] [id number] [place] [address]- 8369 April, [facility] [address] [id number] [place] [address]- 6935 April, [facility] [address] [id number] [place] [address]- 4191 April, [facility] [address] [id number] [place] [address]- 2804 Mar, [facility] [address] [id number] [place] [address]- 7255 Mar, [facility] [address] [id number] [place] [address]- 5571 Jan, [facility] [address] [id number] [place] [address]- 3586 Jan, [facility] [address] [id number] [place] [address]- 7764 Jan, [facility] [address] [id number] [place] [address]- 7217 Jan, [facility] [place] [facility] [address] [id number] [place] [address]- 8254 Jan, [facility] [place] [facility] [address] [id number] [place] [address]- 7785 Jan, [facility] [address] [id number] [place] [address]- 7032 05 Jan, 2012 [facility] [address] [id number] [place] [address]- 6136 04 Jan, 2013 [facility] [address] [id number] [place] [address] 2546 03 Jan, 2013 [facility] [address] [id number] [place] [address]- 0566 02 Jan, 2013 [facility] [address] [id number] [place] [address]- 8953 Jan, [facility] [address] [id number] [place] [address]- 6378 Dec, [facility] [address] [id number] [place] [address]- 0090 Nov, [facility] [address] [id number] [place] [address]- 0896 Nov, [facility] [address] [id number] [place] [address]- 1450 Nov, [facility] [address] [id number] [place] [address]- 9270 Nov, [facility] [address] [id number] [place] [address]- 8821 Nov, [facility] [address] [id number] [place] [address]- 8976 Nov, [facility] [address] [id number] [place] [address]- 2540 Nov, [facility] [address] [id number] [place] [address]- 4524 Nov, [facility] [address] [id number] [place] [address]- 3770 Nov, [facility] [address] [facility] [id number] [place] [address]- 3344 18 Nov, 2012 [facility] [place] [facility] [address] [id number] [place] [address]- 2009 18 Nov, 2012 [facility] [place] [facility] [address] [id number] [place] [address]- 6336 Nov, [facility] [place] [facility] [address] [id number] [place] [address]- 9166 Nov, [facility] [place] [facility] [address] [id number] [place] [address]- 1636 17 Oct, 2012 [facility] [place] [facility] [address] [id number] [place] [address]- 5797 Oct, [facility] [place] [facility] [address] [id number] [place] [address]- 1686 Oct, [facility] [place] [facility] [address] [id number] [place] [address]- 5930 19 Sep, 2012 [facility] [place] [facility] [address] [id number] [place] [address]- 8985 19 Sep, 2012 [facility] [place] [facility] [address] [id number] [place] [address]- 4977 10 Sep, 2012 [facility] [place] [facility] [address] [id number] [place] [address]- 4628 10 Sep, 2012 [facility] [place] [facility] [address] [id number] [place] [address]- 6179 27 Aug, 2012 [facility] [place] [facility] [address] [id number] [place] [address]- 0406 20 Aug, 2012 [facility] [place] [facility] [address] [id number] [place] [address]- 3823 24 Jul, 2012 [facility] [place] [facility] [address] [id number] [place] [address]- 0756 27 May, 2012 [facility] [place] [facility] [address] [id number] [place] [address]- 2127 14 May, 2012 [facility] [place] [facility] [address] [id number] [place] [address]- 7403 May, [facility] [address] [id number] [place] [address]- 8175 April, [facility] [place] [facility] [address] [id number] [place] [address]- 1191 Mar, [facility] [place] [facility] [address] [id number] [place] [address]- 1101 Mar, [facility] [place] [facility] [address] [id number] [place] [address]- 8365 Mar, [facility] [place] [facility] [address] [id number] [place] [address]- 5482 Jan, [facility] [place] [facility] [address] [id number] [place] [address]- 2536 Jan, [facility] [place] [facility] [address] [id number] [place] [address]- 2860 Jan, [facility] [place] [facility] [address] [id number] [place] [address]- 5611 Dec, [facility] [place] [facility] [address] [id number] [place] [address]- 9718 Dec, [facility] [place] [facility] [address] [id number] [place] [address]- 7210 Dec, [facility] [place] [facility] [address] [id number] [address]- 0365 Dec, [facility] [place] [facility] [address] [id number] [address]- 5710 Nov, [facility] [place] [facility] [address] [id number] [place] [address]- 0796 Nov, [facility] [place] [facility] [address] [id number] [place] [address]- 5921 Nov, [facility] [place] [facility] [address] [id number] [place] [address]- 2546 Oct, [facility] [place] [facility] [address] [id number] [place] [address]- 6103 31 Sep, 2011 [facility] [address] [id number] [place] [address]- 3466 26 Sep, 2011 [facility] [place] [facility] [address] [id number] [place] [address] 2546 13 Sep, 2011 [facility] [address] [id number] [place] [address]- 9756 15 Nov, 2010 [facility] [place] [facility] [address] [id number] [place] [address] 2546 23 Oct, 2010 [facility] [place] [facility] [address] [id number] [place] [address]- 4784 19 Oct, 2010 [facility] [place] [facility] [address] [id number] [place] [address]- 5034 18 Oct, 2010 [facility] [address] [id number] [place] [address]- 6358 16 Oct, 2010 [facility] [place] [facility] [address] [id number] [place] [address]- 8211 11 Sep, 2010 [facility] [place] [facility] [address] [id number] [place] [address]- 4948 April, [facility] [address] [facility] [id number] [place] [address]- 6917 29 Nov, 2009 [facility] [place] [facility] [address] [id number] [place] [address] 2546 24 Nov, 2009 [facility] [place] [facility] [address] [id number] [place] [address]- 2541 22 Nov, 2009 [facility] [place] [facility] [address] [id number] [place] [address] 2546 10 Nov, 2009 [facility] [place] [facility] [address] [id number] [place] [address]- 2540 10 Nov, 2009 [facility] [place] [facility] [address] [id number] [place] [address] 2544 Oct, [facility] [address] [facility] [id number] [place] [address]- 0550 Oct, [facility] [address] [facility] [id number][place] [id number]- [address] Sep, [facility] [address] [facility] [id number] [address] Jan, IMMUNIZATIONS No Known Immunizations SOCIAL HISTORY Never Assessed REASON FOR VISIT [facility] PLAN OF CARE Activity Details Follow Up prn Reason: VITAL SIGNS MEDICATIONS Medication Instructions Dosage Frequency Start Date End Date Duration Status Folic Acid 1 MG Orally Once a day at bedime 1 tablet Active Clonazepam 0.5 MG Orally Once a day at bedtime 1 tablet at bedtime Active Tylenol Extra Strength 500 mg Orally every 6 hrs 1 tablet as needed 6h Jan, Active Vitamin D-3 1000 UNIT Orally Once a day at bedtime 2 capsules Active Melatonin 3 MG Orally Once a day 1 tablet at bedtime as needed with food 24h Active Aspir-81 81 MG Orally Once a day 1 tablet 24h Nov, Active BuPROPion HCl ER (XL) 150 MG TAKE 1 TABLET BY MOUTH ONCE DAILY 30 Active Mirtazapine 15 MG Orally Once a day 1 tablet at bedtime 24h Active Isopto Tears 0.5 % Ophthalmic every 6 hours as needed for PRN- dry eyes 1 drop in both eyes Active Pravastatin Sodium 20 mg Orally Once a day at bedtime 1 tablet Active Duloxetine HCl 60 MG TAKE 1 CAPSULE BY MOUTH ONCE DAILY 30 Active Rivastigmine 4.6 MG/24HR APPLY ONE PATCH TRANSDERMALLY EVERY DAY 30 Active Protonix 40 MG Orally Once a day 1 tablet 24h Active Risperidone 2 MG TAKE 1 TABLET BY MOUTH TWICE DAILY 30 Active RESULTS No Results PROCEDURES Procedure Date Ordered Result Body Site Minor complication (15 mins) February 13, 2018 INSTRUCTIONS MEDICATIONS ADMINISTERED No Known Medications [...] left hip IM Nail (Intertrechanteric hip fx) 5/28/16 Hospitalization History surgeries Hospitalization History Hypertension Hospitalization History ER for a concussion 11/24/15 Hospitalization History Intertrechanteric hip fx 04/27/16 Hospitalization History [facility] (inpatient [facility] 2 times) Hx of 3 inpatient psych treatments in past in [facility] oct 2016 Hospital[facility] History [facility] Nov 2016
--- OUTSIDE RECORDS SUMMARY | 2018-08-20 13:05 | XMS REPORT ---
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 Name Role Phone WOLF AGUIRRE Unavailable PROBLEMS Type Condition ICD9-CM Code IWO07-WE Code Onset Dates Condition Status SNOMED Code Problem Sundowning F05 Active 963989023 Problem Constipation, unspecified constipation type K59.00 Active 20664048 Problem Reactive depression F32.9 Active 42799054 Problem Vascular dementia with behavior disturbance F01.51 Active 866174898111484 Problem Insomnia, unspecified type G47.00 Active 601686660 Problem Generalized anxiety disorder F41.1 Active 62184751 Problem Other chronic pain G89.29 Active 58605755 Problem Severe episode of recurrent major depressive disorder, without psychotic features F33.2 Active 40769671 Problem Slow transit constipation K59.01 Active 29448327 Problem 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 Active 353317208 Problem Obsessive thinking F42.8 Active 16081646 Problem Failure to thrive in adult R62.7 Active 471222259 Problem Dysthymic disorder F34.1 Active 78962347 Problem Hypertension I10 Active 62355138 Problem Mood disorder F39 Active 61987448 Problem Irritable bowel syndrome with diarrhea K58.0 Active 825647687 Problem Oropharyngeal dysphagia R13.12 Active 82821879 Problem 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 Active 55913367 Problem Other chronic pain G89.29 Active 86632990 Problem Primary insomnia F51.01 Active 6863942 Problem Poor appetite R63.0 Active 13363246 Problem 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 Active 190085520749953 Problem Iron deficiency anemia secondary to inadequate dietary iron intake D50.8 Active 490705082 Problem Coarse tremors G25.2 Active 33416416 Problem Gastroesophageal reflux disease without esophagitis K21.9 Active 586308495 Problem Essential hypertension I10 Active 30272378 ALLERGIES No Information ENCOUNTERS Encounter Location Date Diagnosis [facility] [id number] [place] [address] 45380- 3678 Jun, [facility] [address] [id number] Jun, Left lower quadrant pain R10.32 and Left leg pain M79.605 [place] [id number] [place] [address] 94025- 8997 Jun, [facility] [address] [id number] Jun, Pain in left hip M25.552 ; Pain in right hip M25.551 and Primary insomnia F51.01 [place] [id number] [place] [address] 66363- 2757 Jun, [facility] [address] [id number] May, [place] [id number] [place] [address] 17443- 2012 May, [place] [id number] [place] [address] 86262- 0513 May, [facility] [address] [id number] May, Mood disorder F39 [place] [id number] [place] [address] 76244- 7607 May, [place] [id number] [place] [address] 02278- 2021 April, [facility] [address] [id number] April, Generalized anxiety disorder F41.1 ; Obsessive thinking F42.8 and Insomnia , unspecified type G47.00 [facility] [address] [place] [address] 75572- 4453 April, [facility] [id number] [place] [address] 14584- 1120 April, Rash of face R21 [facility] [address] [place] [address] 71468- 6881 Mar, [facility] [id number] [place] [address] 44992- 9204 Mar, [facility] [address] [place] [address] 67734- 2615 Mar, [facility] [id number] [place] [address] 86139- 7748 Jan, [facility] [id number] [place] [address] 99617- 8504 Jan, [facility] [address] [id number] Jan, Constipation, unspecified constipation type K59.00 and Other chronic pain G89.29 [facility] [id number] [place] [address] 06266- 0139 Jan, [facility] [address] [id number] Jan, Obsessive thinking F42.8 and Coarse tremors G25.2 [place] [id number] [place] [address] [id number] Jan, [place] [id number] [place] [address] [phone] Jan, [facility] [address] [id number] Jan, Generalized anxiety disorder F41.1 ; Obsessive thinking F42.8 ; Callus of foot L84 and 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 [place] [id number] [place] [address] 83508- 5495 Dec, Generalized anxiety disorder F41.1 and Severe episode of recurrent major depressive disorder, without psychotic features F33.2 [facility] [id number] [place] [address] 30469- 3141 Nov, [facility] [id number] [address]- 4898 Nov, [facility] [place] [address] [place] [phone] Nov, Oropharyngeal dysphagia R13.12 ; Generalized anxiety disorder F41.1 and 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 [facility] [address] [address]- 9265 Nov, [facility] [id number] [place] [address] [id number] Nov, [facility] [address] [address]- 7733 Nov, [facility] [address] [place] [address] 67481- 8376 Nov, [facility] [address] [place] [address] 52110- 8344 Oct, Constipation, unspecified constipation type K59.00 and Mood disorder F39 [facility] [address] [address]- 4149 Oct, [facility] [id number] [place] [address] [id number] Sep, [facility] [id number] [id number] Sep, [facility] [id number] [place] [address] [phone] Sep, [facility] [id number] [place] [address] [id number] Sep, [facility] [place] [address] [place] [phone] Sep, Generalized abdominal pain R10.84 [facility] [address] [address]- 1686 Sep, [facility] [address] [id number] Sep, Generalized anxiety disorder F41.1 and Primary insomnia F51.01 [facility] [id number] [id number] Aug, [facility] [address] [id number] Aug, Generalized anxiety disorder F41.1 [facility] [id number] [address]- 6126 Jul, [facility] [place] [address] [id number] Jul, Obsessive thinking F42.8 [facility] [id number] [address]- 3691 Jul, Generalized anxiety disorder F41.1 and Irritable bowel syndrome with diarrhea K58.0 [facility] [id number] [place] [id number] Jul, Generalized anxiety disorder F41.1 [facility] [address] [id number] Jun, Generalized anxiety disorder F41.1 [facility] [id number] [address]- 7862 May, [facility] [address] [id number] May, Generalized anxiety disorder F41.1 ; Irritable bowel syndrome with diarrhea K58.0 and Coarse tremors G25.2 [facility] [address] [address]- 2450 April, [facility] [id number] [address]- 6212 April, [facility] [address] [address]- 8075 April, [facility] [id number] [address]- 5635 Mar, [facility] [address] [id number] Mar, Severe episode of recurrent major depressive disorder, without psychotic features F33.2 and Pain in left hip M25.552 [facility] [id number] [place] [address] 63248- 5336 Mar, [facility] [id number] [place] [address] 52082- 6883 Mar, [facility] [id number] [place] [address] 23206- 2181 Mar, [facility] [id number] [place] [address] 98998- 5613 Mar, Pain in right hip M25.551 and Self-care deficit in patient living alone R46.89 [facility] [id number] [place] [address] 34471 -6877 Jan, Other chronic pain G89.29 ; Pain in left hip M25.552 and Slow transit constipation K59.01 [place] [id number] [place] [address] 40527- 2392 Jan, [place] [id number] [place] [address] 42246- 3901 Dec, Other depression F32.89 ; Constipation, unspecified constipation type K59.00 and Insomnia, unspecified type G47.00 [place] [id number] [place] [address] 16490- 5628 Nov, Reactive depression F32.9 ; Chronic idiopathic constipation K59.04 ; Generalized anxiety disorder F41.1 ; Coarse tremors G25.2 ; Gastroesophageal reflux disease without esophagitis K21.9 ; Dysthymic disorder F34.1 ; Vitamin deficiency, unspecified E56.9 and Primary insomnia F51.01 [place] [id number] [place] [address] 73741- 0264 Nov, [place] [id number] [place] [address] 64668- 2030 Nov, [place] [id number] [place] [address] 02066- 5145 Nov, [facility] [id number] [place] [address] 69425- 0713 Nov, Reactive depression F32.9 ; Essential hypertension [...] intake D50.8 and Vitamin deficiency, unspecified E56.9 [place] [address] 54830- 5309 Oct, [place] [address] 38646- 0719 Oct, [place] [address] 40268- 5893 Oct, [place] [address] 24093- 5968 Oct, Generalized anxiety disorder F41.1 ; Poor appetite R63.0 ; Dehydration E86.0 and Failure to thrive in adult R62.7 [place] [id number] [place] [address] 53467- 5898 Oct, Generalized anxiety disorder F41.1 and Failure to thrive in adult R62.7 [place] [id number] [place] [address] 35107- 0121 Oct, [place] [address] 03584- 5549 Oct, [facility] [id number] [place] [address] 82994 -0558 Sep, Vaginal discharge N89.8 and Acute cystitis with hematuria N30.01 [facility] [address] 22136- 1203 Sep, [facility] [address] [place] [address] 79431- 9499 Sep, [facility] [id number] [place] [address] 17768- 5643 Sep, Dysthymic disorder F34.1 ; Acute vaginitis N76.0 ; Dysuria R30.0 and Vaginal yeast infection B37.3 [facility] [id number] [place] [address] 53446- 6098 Aug, [facility] [id number] [place] [address] 74345- 0248 Aug, [facility] [id number] [place] [address] 68990 -6743 Aug, Foul smelling urine R82.90 ; Rapid heart rate R00.0 and Flatulence R14.3 [place] [id number] [place] [address] 22760- 7777 Aug, [facility] [id number] [place] [address] 63407- 1390 Jul, Constipation, unspecified constipation type K59.00 ; Weak R53.1 ; Poor appetite R63.0 ; Coronary artery disease involving havasupai heart without angina pectoris, unspecified vessel or lesion type I25.10 ; Fatigue, unspecified type R53.83 ; Urinary incontinence, unspecified type R32 and Insomnia, unspecified type G47.00 [facility] [address] [address]- 3318 Jul, [facility] [id number] [place] [address] 89321- 7688 Jun, Dysuria R30.0 [place] [id number] [place] [address] 67607- 6569 Jun, [facility] [id number] [place] [address] 99532- 0516 Jun, Urinary tract infection, site not specified N39.0 ; Acute vaginitis N76.0 and Diarrhea, unspecified type R19.7 [facility] [id number] [place] [address] 21139- 2101 May, [facility] [id number] [place] [address] 03025- 7494 April, [facility] [id number] [place] [address] [phone] April, Encounter for dental examination Z01.20 [facility] [id number] [place] [address] 81802- 6077 April, [facility] [id number] [place] [address] 49733- 0586 April, Tremor R25.1 and Episodic tension-type headache, not intractable G44.219 [facility] [id number] [place] [address] 32094- 9510 Mar, [facility] [id number] [place] [address] 41405- 5417 Jan, Mood disorder F39 [facility] [id number] [place] [address] 55560 -1332 Jan, [facility] [id number] [place] [address] 66066- 6303 Jan, [facility] [id number] [place] [address] 66831- 2849 Jan, [facility] [id number] [place] [address] 46604- 7781 Jan, [facility] [id number] [place] [address] 03024- 5454 Jan, [facility] [id number] [place] [address] 58315- 0839 Jan, [facility] [id number] [place] [address] 91690 -0262 Dec, Acute diarrhea R19.7 [facility] [id number] [place] [address] 79438- 0654 Dec, [facility] [id number] [place] [address] 87366- 0064 Dec, [facility] [id number] [place] [address] 63528- 9885 Dec, [facility] [address] 15424 -1353 Dec, N&V (nausea and vomiting) R11.2 [facility] [address] 39845- 2063 Dec, Generalized anxiety disorder F41.1 [facility] [address] 08201- 7053 Dec, Generalized anxiety disorder F41.1 [facility] [address] 38345- 2553 Nov, Post concussion syndrome F07.81 [facility] [address] 07173- 4925 Nov, Generalized anxiety disorder F41.1 [facility] [id number] [place] [address] 54864- 1131 Nov, [facility] [id number] [place] [address] 32661- 3928 Nov, Generalized anxiety disorder F41.1 [facility] [id number] [place] [address] [id number] Oct, Dental caries K02.9 [facility] [id number] [place] [address] 68531- 7200 Oct, [facility] [id number] [place] [address] [id number] Oct, Dental examination Z01.20 [facility] [id number] [place] [id number] 10 Oct, 2015 Encounter for dental examination Z01.20 [place] [address] 42959- 2366 Oct, CAD (coronary artery disease) I25.10 [facility] [id number] [place] [address] 40189- 7384 Sep, Generalized anxiety disorder F41.1 [facility] [address] 53321- 2871 Sep, [facility] [address] 79578- 8560 Sep, Rash and other nonspecific skin eruption R21 and Yeast vaginitis B37.3 [place] [address] 81557- 4951 Sep, Generalized anxiety disorder F41.1 [place] [address] 31958- 2938 Aug, Insect bites 919.4 and Hemorrhoids 455.6 [place] [address] 81957- 9150 Aug, Generalized anxiety disorder 300.02 [facility] [id number] [place] [address] 86435- 4795 08 Aug, 2015 [facility] [address] 22617- 6818 Aug, [facility] [address] 21476- 6698 Aug, Generalized anxiety disorder 300.02 ; No condition on [place] II V71.09 ; Heart problem 429.9 and Hypertension 401.9 [facility] [address] 95296- 3374 Aug, [facility] [address] 98975- 4212 Jul, [place] [address] [facility] [id number] [address]- 2579 Jul, [facility] [address] [address]- 2392 Jul, [facility] [address] [facility] [id number] [address]- 4886 Jul, [facility] [address] [address]- 8383 Jul, Rash 782.1 [facility] [address] [address]- 8197 Jul, UTI (urinary tract infection) 599.0 [facility] [address] [address]- 8501 Jul, [facility] [address] [address]- 1116 Jun, Dysthymia 300.4 and Anxiety 300.00 [facility] [address] [address]- 0404 Jun, 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 [facility] [address] [address]- 2319 May, [facility] [id number] [address]- 9392 May, [facility] [id number] [address]- 6294 May, Unspecified breast screening V76.10 [facility] [address] [id number] May, Dental examination V72.2 [facility] [id number] [address]- 5210 April, [facility] [id number] [address]- 2893 April, [facility] [id number] [address] April, Dental examination V72.2 [facility] [address] [id number] [place] [id number] April, Dental examination V72.2 [facility] [address] [id number] [place] [address]- 2346 14 Mar, 2015 [facility] [address] [id number] [place] [address]- 6654 Mar, [facility] [address] [id number] [place] [address]- 4137 25 Jan, 2015 [facility] [address] [id number] [place] 2056 25 Jan, 2015 [facility] [address] [id number] [place]- 7760 18 Jan, 2015 [facility] [address] [id number] [place] [address]- 4122 18 Jan, 2015 [facility] [address] [id number] [place] [address]- 1134 16 Jan, 2015 [facility] [address] [id number] [place] [address]- 1485 16 Jan, 2015 [facility] [address] [id number] [place] [address]- 3439 13 Jan, 2015 [facility] [address] [id number] [address]- 2062 13 Jan, 2015 [facility] [place] [facility] [address] [id number] [place] 4232 11 Jan, 2015 [facility] [place] [facility] [address] [id number] [place] 1061 11 Jan, 2015 [facility] [place] [facility] [address] [id number] [place] [address]- 7026 11 Jan, 2015 [facility] [place] [facility] [address] [id number] [place] [address]- 9650 Jan, [facility] [place] [facility] [address] [id number] [place] [address]- 0317 Jan, [facility] [place] [facility] [address] [id number] [place] [address]- 5756 Jan, [facility] [place] [facility] [address] [facility] [id number] [place] [address]- 0603 Jan, 2014 [facility] [place] [facility] [address] [id number] [place] [address]- 8584 Jan, 2014 [facility] [place] [facility] [address] [id number] [place] [address]- 1292 Jan, 2014 [facility] [place] [facility] [address] [facility] [id number] [place] [address]- 5998 Jan, 2014 [facility] [place] [facility] [address] [facility] [id number] [place] [address]- 7299 Jan, [facility] [place] [facility] [address] [facility] [id number] [place] [address]- 6303 Jan, [facility] [place] [facility] [address] [facility] [id number] [place] [address]- 1026 Jan, [facility] [place] [facility] [address] [facility] [id number] [place] [address]- 8274 Jan, [facility] [place] [facility] [address] [facility] [id number] [place] [address] Dec, [facility] [place] [facility] [address] [facility] [place] [id number] [place] [address] Dec, [facility] [place] [facility] [address] [id number] [place] [address] Dec, [facility] [place] [facility] [address] [facility] [place] [id number] [place] [address] Dec, [facility] [place] [facility] [address] [facility] [place] [id number] [address] Nov, [facility] [place] [facility] [address] [id number] [place] [address] Nov, [facility] [place] [facility] [address] [id number] [place] [address] Nov, [facility] [place] [facility] [address] [id number] [place] [address] Nov, [facility] [place] [facility] [address] [id number] [place] [address] Nov, [facility] [place] [facility] [address] [id number] [place] [address] Nov, [facility] [place] [facility] [address] [id number] [place] [address] Nov, [facility] [place] [facility] [address] [id number] [place] [address] Oct, [facility] [place] [facility] [address] [id number] [place] [address] Oct, [facility] [place] [facility] [address] [id number] [place] [address] Oct, [facility] [place] [facility] [address] [id number] [place] [address] Oct, [facility] [place] [facility] [address] [id number] [place] [address] Oct, [facility] [place] [facility] [address] [id number] [place] [address] Oct, [facility] [place] [facility] [address] [id number] [place] [address] Oct, [facility] [place] [facility] [address] [id number] [place] [address] Oct, [facility] [place] [facility] [address] [id number] [place] [address] Oct, [facility] [place] [facility] [address] [id number] [place] [address] Oct, [facility] [place] [facility] [address] [id number] [place] [address] Oct, [facility] [place] [facility] [address] [id number] [place] [address] Oct, [facility] [place] [facility] [address] [id number] [place] [address] Sep, [facility] [place] [facility] [address] [id number] [place] [address] Sep, [facility] [facility] [address] [id number] [place] [address] Sep, [facility] [place] [facility] [address] [id number] [place] [address] Sep, [facility] [place] [facility] [address] [id number] [place] [address] Jul, [facility] [place] [facility] [address] [id number] [place] [address] Jul, [facility] [place] [facility] [address] [id number] [place] [address] Jul, [facility] [place] [facility] [address] [id number] [place] [address] Jul, [facility] [place] [facility] [address] [id number] [place] [address] Jun, [facility] [place] [facility] [address] [id number] [place] [address] 7670 Jun, [facility] [place] [facility] [address] [id number] [place] [address] 6936 Jun, [facility] [place] [facility] [address] [id number] [place] [address] Jun, [facility] [place] [facility] [address] [id number] [place] [address] 69[address] May, [facility] [place] [facility] [address] [id number] [place] [address] 8090 May, [facility] [address] [id number] [place] [address] April, [facility] [address] [id number] [place] [address] 6[address] April, [facility] [address] [id number] [place] [address] 3763 April, [facility] [address] [id number] [place] [address]- 0941 April, [facility] [address] [id number] [place] [address]- 2390 April, [facility] [address] [id number] [place] [address]- 3617 April, [facility] [address] [id number] [place] [address]- 9235 April, [facility] [address] [id number] [place] [address]- 2065 April, [facility] [address] [id number] [place] [address]- 9326 April, [facility] [address] [id number] [place] [address]- 0[address] Mar, [facility] [address] [id number] [place] [address]- 0587 Mar, [facility] [address] [id number] [place] [address]- 3815 Mar, [facility] [address] [id number] [place] [address] Mar, [facility] [address] [id number] [place] [address]- 2136 Jan, [facility] [address] [id number] [place] [address]- 1346 Jan, [facility] [facility] [address] [id number] [place] [address]- 6346 Jan, [facility] [place] [facility] [address] [id number] [place] [address]- 6891 Jan, [facility] [place] [facility] [address] [id number] [place] [address]- 9048 Jan, [facility] [place] [facility] [address] [id number] [place] [address]- 2510 Jan, [facility] [place] [facility] [address] [id number] [place] [address]- 7830 Jan, [facility] [place] [facility] [address] [id number] [place] [address]- 7054 Jan, [facility] [place] [address] [id number] [place] [address]- 2395 Jan, [facility] [place] [address] [id number] [place] [address]- 8978 Jan, [facility] [place] [address] [id number] [place] [address]- 1378 Jan, [facility] [place] [address] [id number] [place] [address]- 9158 Jan, [facility] [address] [id number] [place] [address]- 7837 Dec, [facility] [place] [facility] [address] [id number] [place] [address]- 3836 Dec, [facility] [address] [id number] [place] [address]- 3473 Dec, [facility] [address] [id number] [place] [address]- 5540 Dec, [facility] [address] [id number] [place] [address]- 0159 Nov, [facility] [address] [id number] [place] [address]- 8347 Nov, [facility] [address] [id number] [place] [address]- 2407 Nov, [facility] [address] [id number] [place] [address]- 6627 Nov, [facility] [address] [id number] [place] [address]- 1428 Oct, [facility] [address] [id number] [place] [address]- 5549 Oct, [facility] [address] [id number] [place] [address]- 7157 Sep, [facility] [address] [id number] [place] [address]- 6116 Sep, [facility] [address] [id number] [place] [address]- 3423 Jul, [facility] [address] [id number] [place] [address]- 4963 Jul, [facility] [address] [id number] [place] [address]- 2308 Jun, [facility] [address] [id number] [place] [address]- 3867 Jun, [facility] [address] [id number] [place] [address]- 1744 Jun, [facility] [address] [id number] [place] [address]- 3781 May, [facility] [address] [id number] [place] [address]- 5256 May, [facility] [address] [id number] [place] [address]- 9567 May, [facility] [address] [id number] [place] [address]- 9088 May, [facility] [address] [id number] [place] [address] 7183 May, [facility] [address] [id number] [place] [address]- 4327 April, [facility] [address] [id number] [place] [address]- 8589 April, [facility] [address] [id number] [place] [address]- 4826 April, [facility] [address] [id number] [place] [address]- 6619 April, [facility] [address] [id number] [place] [address]- 0166 April, [facility] [address] [id number] [place] [address]- 9366 April, [facility] [address] [id number] [place] [address]- 1106 Mar, [facility] [address] [id number] [place] [address]- 0426 Mar, [facility] [address] [id number] [place] [address]- 8873 Jan, [facility] [address] [id number] [place] [address]- 5141 Jan, [facility] [address] [id number] [place] [address]- 7240 Jan, [facility] [address] [id number] [place] [address]- 8803 Jan, [facility] [address] [id number] [place] [address]- 6598 Jan, [facility] [address] [id number] [place] [address]- 5799 Jan, [facility] [address] [id number] [place] [address]- 7620 05 Jan, 2012 [facility] [address] [id number] [place] [address]- 6216 04 Jan, 2013 [facility] [address] [id number] [place] [address] 2546 03 Jan, 2013 [facility] [address] [id number] [place] [address]- 0406 02 Jan, 2013 [facility] [address] [id number] [place] [address]- 5830 Jan, [facility] [address] [id number] [place] [address]- 9337 Dec, [facility] [address] [id number] [place] [address]- 1587 Nov, [facility] [address] [id number] [place] [address]- 4471 Nov, [facility] [address] [id number] [place] [address]- 7221 Nov, [facility] [address] [id number] [place] [address]- 4729 Nov, [facility] [address] [id number] [place] [address]- 7223 Nov, [facility] [address] [id number] [place] [address]- 3575 Nov, [facility] [address] [id number] [place] [address]- 2541 Nov, [facility] [address] [id number] [place] [address]- 4009 Nov, [facility] [address] [id number] [place] [address]- 4545 Nov, [facility] [address] [facility] [id number] [place] [address]- 6688 18 Nov, 2012 [facility] [address] [id number] [place] [address]- 3295 18 Nov, 2012 [facility] [address] [id number] [place] [address]- 7796 Nov, [facility] [address] [id number] [place] [address]- 7736 Nov, [facility] [address] [id number] [place] [address]- 2876 17 Oct, 2012 [facility] [address] [id number] [place] [address]- 1609 Oct, [facility] [address] [id number] [place] [address]- 6569 Oct, [facility] [address] [id number] [place] [address]- 4072 19 Sep, 2012 [facility] [address] [id number] [place] [address]- 6833 19 Sep, 2012 [facility] [address] [id number] [place] [address]- 3036 10 Sep, 2012 [facility] [address] [id number] [place] [address]- 6769 10 Sep, 2012 [facility] [address] [id number] [place] [address]- 5380 27 Aug, 2012 [facility] [address] [id number] [place] [address]- 8633 20 Aug, 2012 [facility] [address] [id number] [place] [address]- 5071 24 Jul, 2012 [facility] [address] [id number] [place] [address]- 1246 27 May, 2012 [facility] [address] [id number] [place] [address]- 5526 14 May, 2012 [facility] [address] [id number] [place] [address]- 2918 May, [facility] [address] [id number] [place] [address]- 4862 April, [facility] [address] [id number] [place] [address]- 2412 Mar, [facility] [place] [address] [id number] [place] [address]- 1810 Mar, [facility] [address] [id number] [place] [address]- 4619 Mar, [facility] [address] [id number] [place] [address]- 9484 Jan, [facility] [place] [facility] [address] [id number] [place] [address]- 6645 Jan, [facility] [place] [facility] [address] [id number] [place] [address]- 5926 Jan, [facility] [place] [address] [id number] [place] [address]- 1586 Dec, [facility] [place] [address] [id number] [place] [address]- 1025 Dec, [facility] [place] [facility] [address] [id number] [place] [address]- 4899 Dec, [facility] [address] [id number] [place] [address]- 4055 Dec, [facility] [address] [id number] [place] [address]- 4060 Nov, [facility] [facility] [address] [id number] [place] [address]- 8222 Nov, [facility] [place] [facility] [address] [id number] [place] [address]- 1820 Nov, [facility] [facility] [address] [id number] [place] [address]- 2546 Oct, [facility] [facility] [address] [id number] [place] [address]- 6651 31 Sep, 2011 [facility] [address] [id number] [place] [address]- 3646 26 Sep, 2011 [facility] [facility] [address] [id number] [place] [address] 2546 13 Sep, 2011 [facility] [address] [id number] [place] [address]- 4246 15 Nov, 2010 [facility] [facility] [address] [id number] [place] [address] 2546 23 Oct, 2010 [facility] [place] [facility] [address] [id number] [place] [address]- 2086 19 Oct, 2010 [facility] [place] [facility] [address] [id number] [place] [address]- 0255 18 Oct, 2010 [facility] [address] [id number] [place] [address]- 1285 16 Oct, 2010 [facility] [place] [facility] [address] [id number] [place] [address]- 8996 11 Sep, 2010 [facility] [place] [facility] [address] [id number] [place] [address]- 2055 April, [facility] [address] [facility] [id number] [place] [address]- 8528 29 Nov, 2009 [facility] [place] [facility] [address] [id number] [place] [address] 2546 24 Nov, 2009 [facility] [place] [facility] [address] [id number] [place] [address]- 2540 22 Nov, 2009 [facility] [facility] [address] [id number] [place] [address] 2546 10 Nov, 2009 [facility] [place] [facility] [address] [id number] [place] [address]- 2541 10 Nov, 2009 [facility] [place] [facility] [address] [id number] [place] [address] 2544 Oct, [facility] [address] [facility] [place] [id number] [place] [address]- 1770 Oct, [facility] [address] [facility] [place] [id number] [place] [address]- 0450 Sep, [facility] [address] [facility] [place] [id number] [place] [address]- 6284 Jan, IMMUNIZATIONS No Known Immunizations SOCIAL HISTORY Never Assessed REASON FOR VISIT Constipation Concerns PLAN OF CARE VITAL SIGNS MEDICATIONS Unknown Medications RESULTS No Results PROCEDURES No Known procedures INSTRUCTIONS MEDICATIONS ADMINISTERED No Known Medications MEDICAL (GENERAL) HISTORY Type Description Date Medical History Hypertension Medical History Heart disease CABG X3 Stress test 07/2015 Medical History Gastric ulcer Medical History Hyperlipidemia Medical History Headache syndrome Medical History Psychiatric disorders-depression/racing thoughts Medical History Depression Medical History At [facility] 04/2016 Started on Eliquis Medical History Anemia 04/2016 postsurgical hip fx Surgical History right hip replacement w/ Dr. Bruce 2011 Surgical History triple bypass surgery 2003 Surgical History S/P left hip IM Nail (Intertrechanteric hip fx) 04/28/16 Hospitalization History surgeries Hospitalization History Hypertension Hospitalization History ER for a concussion 11/24/15 Hospitalization History Intertrechanteric hip fx 04/27/16 Hospitalization History [facility] ([facility]patient [facility] times) Hx of 3 inpatient psych treatments in past in [place] oct 2016 [facility]
--- OUTSIDE RECORDS SUMMARY | 2018-08-20 13:06 | XMS REPORT ---
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 Name Role Phone WOLF AGUIRRE Unavailable PROBLEMS Type Condition ICD9-CM Code DUV89-DD Code Onset Dates Condition Status SNOMED Code Problem Sundowning F05 Active 847463259 Problem Constipation, unspecified constipation type K59.00 Active 45626390 Problem Reactive depression F32.9 Active 47313365 Problem Vascular dementia with behavior disturbance F01.51 Active 304956336374131 Problem Insomnia, unspecified type G47.00 Active 479952694 Problem Generalized anxiety disorder F41.1 Active 99966771 Problem Other chronic pain G89.29 Active 42459415 Problem Severe episode of recurrent major depressive disorder, without psychotic features F33.2 Active 45027738 Problem Slow transit constipation K59.01 Active 84062839 Problem 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 Active 123167809 Problem Obsessive thinking F42.8 Active 59514504 Problem Failure to thrive in adult R62.7 Active 771043026 Problem Dysthymic disorder F34.1 Active 09863595 Problem Hypertension I10 Active 27673122 Problem Mood disorder F39 Active 83892021 Problem Irritable bowel syndrome with diarrhea K58.0 Active 092660823 Problem Oropharyngeal dysphagia R13.12 Active 21589733 Problem 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 Active 26553356 Problem Other chronic pain G89.29 Active 75050460 Problem Primary insomnia F51.01 Active 6181202 Problem Poor appetite R63.0 Active 77957271 Problem 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 Active 792971498026724 Problem Iron deficiency anemia secondary to inadequate dietary iron intake D50.8 Active 057711232 Problem Coarse tremors G25.2 Active 94888659 Problem Gastroesophageal reflux disease without esophagitis K21.9 Active 092170047 Problem Essential hypertension I10 Active 60385685 ALLERGIES No Information ENCOUNTERS Encounter Location Date Diagnosis [facility] [id number] [place] [address] 08064- 3465 Jun, [facility] [address] [phone] Jun, Left lower quadrant pain R10.32 and Left leg pain M79.605 [place] [id number] [place] [address] 05741- 1118 Jun, [facility] [address] [id number] Jun, Pain in left hip M25.552 ; Pain in right hip M25.551 and Primary insomnia F51.01 [place] [id number] [place] [address] 97220- 1406 Jun, [facility] [address] [phone] May, [place] [id number] [place] [address] 96235- 5951 May, [place] [id number] [place] [address] 14476- 2676 May, [facility] [address] [phone] May, Mood disorder F39 [place] [id number] [place] [address] 15171- 8240 May, [place] [id number] [place] [address] 44127- 6698 April, [facility] [address] [id number] April, Generalized anxiety disorder F41.1 ; Obsessive thinking F42.8 and Insomnia , unspecified type G47.00 [facility] [id number] [place] [address] 47756- 6231 April, [facility] [id number] [place] [address] 49689- 7825 April, Rash of face R21 [facility] [id number] [place] [address] 88152- 1499 Mar, [facility] [id number] [place] [address] 95386- 6667 Mar, [facility] [id number] [place] [address] 82544- 0923 Mar, [facility] [id number] [place] [address] 66310- 1499 Jan, [facility] [id number] [place] [address] 53892- 0715 Jan, [facility] [address] [phone] Jan, Constipation, unspecified constipation type K59.00 and Other chronic pain G89.29 [place] [id number] [place] [address] 80694- 3919 Jan, [facility] [address] [phone] Jan, Obsessive thinking F42.8 and Coarse tremors G25.2 [place] [id number] [place] [address] [phone] Jan, [place] [id number] [place] [address] [phone] Jan, [facility] [address] [phone] Jan, Generalized anxiety disorder F41.1 ; Obsessive thinking F42.8 ; Callus of foot L84 and 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 [place] [id number] [place] [address] 68771- 6510 Dec, Generalized anxiety disorder F41.1 and Severe episode of recurrent major depressive disorder, without psychotic features F33.2 [facility] [id number] [place] [address] 01280- 5239 Nov, [facility] [id number] [address]- 1253 Nov, [facility] [place] [address] [place] [phone] Nov, Oropharyngeal dysphagia R13.12 ; Generalized anxiety disorder F41.1 and 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 [facility] [address] [address]- 8224 Nov, [facility] [id number] [place] [address] [id number] Nov, [facility] [address] [address]- 0803 Nov, [facility] [id number] [place] [address] 04245- 9498 Nov, [facility] [id number] [place] [address] 17198- 2577 Oct, Constipation, unspecified constipation type K59.00 and Mood disorder F39 [facility] [address] [address]- 5494 Oct, [facility] [id number] [place] [address] [id number] Sep, [facility] [id number] [id number] Sep, [facility] [id number] [place] [address] [id number] Sep, [facility] [id number] [place] [address] [phone] Sep, [facility] [place] [address] [place] [id number] Sep, Generalized abdominal pain R10.84 [facility] [address] [address]- 0446 Sep, [facility] [id number] [id number] Sep, Generalized anxiety disorder F41.1 and Primary insomnia F51.01 [facility] [id number] [id number] Aug, [facility] [id number] [address] Aug, Generalized anxiety disorder F41.1 [facility] [id number] [address]- 5095 Jul, [facility] [place] [address] [place] [id number] Jul, Obsessive thinking F42.8 [facility] [id number] [address] 3174 Jul, Generalized anxiety disorder F41.1 and Irritable bowel syndrome with diarrhea K58.0 [facility] [id number] [id number] Jul, Generalized anxiety disorder F41.1 [facility] [id number] [address] Jun, Generalized anxiety disorder F41.1 [facility] [id number] [address]- 6197 May, [facility] [address] [phone] May, Generalized anxiety disorder F41.1 ; Irritable bowel syndrome with diarrhea K58.0 and Coarse tremors G25.2 [facility] [address] [address]- 1579 April, [facility] [id number] [address]- 0982 April, [facility] [address] [address]- 9564 April, [facility] [id number] [address]- 5187 Mar, [facility] [address] [id number] Mar, Severe episode of recurrent major depressive disorder, without psychotic features F33.2 and Pain in left hip M25.552 [facility] [id number] [place] [address] 10942- 9149 Mar, [facility] [id number] [place] [address] 68284- 0136 Mar, [facility] [id number] [place] [address] 78769- 4960 Mar, [facility] [id number] [place] [address] 47426- 1173 Mar, Pain in right hip M25.551 and Self-care deficit in patient living alone R46.89 [facility] [id number] [place] [address] 49653 -1700 Jan, Other chronic pain G89.29 ; Pain in left hip M25.552 and Slow transit constipation K59.01 [place] [id number] [place] [address] 90976- 7638 Jan, [place] [id number] [place] [address] 30272- 9403 Dec, Other depression F32.89 ; Constipation, unspecified constipation type K59.00 and Insomnia, unspecified type G47.00 [place] [id number] [place] [address] 26857- 3179 Nov, Reactive depression F32.9 ; Chronic idiopathic constipation K59.04 ; Generalized anxiety disorder F41.1 ; Coarse tremors G25.2 ; Gastroesophageal reflux disease without esophagitis K21.9 ; Dysthymic disorder F34.1 ; Vitamin deficiency, unspecified E56.9 and Primary insomnia F51.01 [place] [id number] [place] [address] 87934- 1826 Nov, [place] [id number] [place] [address] 27532- 4931 Nov, [place] [id number] [place] [address] 08129- 5123 Nov, [facility] [id number] [place] [address] 63108- 3805 Nov, Reactive depression F32.9 ; Essential hypertension I10 ; Generalized anxiety disorder F41.1 ; 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 ; Pain in right hip M25.551 ; Other chronic pain G89.29 ; Chronic idiopathic constipation K59.04 ; Primary insomnia F51.01 ; Coarse tremors G25.2 ; Gastroesophageal reflux disease without esophagitis K21.9 ; Iron deficiency anemia secondary to inadequate dietary iron intake D50.8 and Vitamin deficiency, unspecified E56.9 [place] [address] 82584- 8557 Oct, [place] [address] 38272- 6624 Oct, [place] [address] 20283- 9642 Oct, [place] [address] 03157- 3892 Oct, Generalized anxiety disorder F41.1 ; Poor appetite R63.0 ; Dehydration E86.0 and Failure to thrive in adult R62.7 [place] [id number] [place] [address] 37445- 7230 Oct, Generalized anxiety disorder F41.1 and Failure to thrive in adult R62.7 [place] [id number] [place] [address] 82042- 8598 Oct, [place] [address] 28315- 7743 Oct, [facility] [id number] [place] [address] 89550 -4809 Sep, Vaginal discharge N89.8 and Acute cystitis with hematuria N30.01 [facility] [address] 14033- 0836 Sep, [facility] [id number] [place] [address] 72160- 7558 Sep, [facility] [id number] [place] [address] 37139- 4374 Sep, Dysthymic disorder F34.1 ; Acute vaginitis N76.0 ; Dysuria R30.0 and Vaginal yeast infection B37.3 [facility] [id number] [place] [address] 11338- 0177 Aug, [facility] [id number] [place] [address] 86745- 1538 Aug, [facility] [id number] [place] [address] 19358 -9003 Aug, Foul smelling urine R82.90 ; Rapid heart rate R00.0 and Flatulence R14.3 [place] [id number] [place] [address] 69810- 4736 Aug, [facility] [id number] [place] [address] 82730- 8784 Jul, Constipation, unspecified constipation type K59.00 ; Weak R53.1 ; Poor appetite R63.0 ; Coronary artery disease involving lytton heart without angina pectoris, unspecified vessel or lesion type I25.10 ; Fatigue, unspecified type R53.83 ; Urinary incontinence, unspecified type R32 and Insomnia, unspecified type G47.00 [facility] [address] [address]- 7798 Jul, [facility] [id number] [place] [address] 69183- 4706 Jun, Dysuria R30.0 [place] [id number] [place] [address] 54058- 0181 Jun, [facility] [id number] [place] [address] 38823- 1519 Jun, Urinary tract infection, site not specified N39.0 ; Acute vaginitis N76.0 and Diarrhea, unspecified type R19.7 [facility] [id number] [place] [address] 11015- 5964 May, [facility] [id number] [place] [address] 62642- 7913 April, [facility] [id number] [place] [address] [id number] April, Encounter for dental examination Z01.20 [facility] [id number] [place] [address] 47503- 3947 April, [facility] [id number] [place] [address] 21898- 4749 April, Tremor R25.1 and Episodic tension-type headache, not intractable G44.219 [facility] [id number] [place] [address] 20015- 1285 Mar, [facility] [id number] [place] [address] 15887- 7312 Jan, Mood disorder F39 [facility] [id number] [place] [address] 44249 -3438 Jan, [facility] [id number] [place] [address] 57086- 3534 Jan, [facility] [id number] [place] [address] 96092- 4065 Jan, [facility] [id number] [place] [address] 26873- 7510 Jan, [facility] [id number] [place] [address] 73287- 5287 Jan, [facility] [id number] [place] [address] 69160- 2467 Jan, [facility] [id number] [place] [address] 54229 -4797 Dec, Acute diarrhea R19.7 [facility] [id number] [place] [address] 75699- 6231 Dec, [facility] [id number] [place] [address] 16174- 1473 Dec, [facility] [id number] [place] [address] 84431- 1354 Dec, [facility] [address] 27137 -2836 Dec, N&V (nausea and vomiting) R11.2 [facility] [address] 44378- 3666 Dec, Generalized anxiety disorder F41.1 [facility] [address] 34011- 8303 Dec, Generalized anxiety disorder F41.1 [facility] [address] 28678- 7090 Nov, Post concussion syndrome F07.81 [facility] [address] 90125- 1973 Nov, Generalized anxiety disorder F41.1 [facility] [id number] [place] [address] 60090- 4900 Nov, [facility] [id number] [place] [address] 72792- 4156 Nov, Generalized anxiety disorder F41.1 [facility] [id number] [place] [address] [id number] Oct, Dental caries K02.9 [facility] [id number] [place] [address] 81553- 0493 Oct, [facility] [id number] [place] [address] [id number] Oct, Dental examination Z01.20 [facility] [id number] [place] [id number] 10 Oct, 2015 Encounter for dental examination Z01.20 [place] [address] 99180- 6596 Oct, CAD (coronary artery disease) I25.10 [facility] [id number] [place] [address] 00800- 6394 Sep, Generalized anxiety disorder F41.1 [facility] [address] 56894- 9847 Sep, [facility] [address] 26529- 6188 Sep, Rash and other nonspecific skin eruption R21 and Yeast vaginitis B37.3 [place] [address] 96793- 3511 Sep, Generalized anxiety disorder F41.1 [place] [address] 61844- 3019 Aug, Insect bites 919.4 and Hemorrhoids 455.6 [place] [address] 67910- 0291 Aug, Generalized anxiety disorder 300.02 [facility] [id number] [place] [address] 36176- 4201 08 Aug, 2015 [facility] [address] 31473- 1832 Aug, [facility] [address] 26040- 7513 Aug, Generalized anxiety disorder 300.02 ; No condition on Billings II V71.09 ; Heart problem 429.9 and Hypertension 401.9 [facility] [address] 78840- 4893 Aug, [facility] [address] 59938- 2319 Jul, [place] [address] [facility] [id number] [address]- 2635 Jul, [facility] [address] [address]- 3673 Jul, [facility] [address] [facility] [id number] [address]- 8643 Jul, [facility] [address] [address]- 1944 Jul, Rash 782.1 [facility] [address] [address]- 0673 Jul, UTI (urinary tract infection) 599.0 [facility] [address] [address]- 7448 Jul, [facility] [address] [address]- 9100 Jun, Dysthymia 300.4 and Anxiety 300.00 [facility] [address], [place] [address]- 4556 Jun, 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 [facility] [address] [address]- 3695 May, [facility] [id number] [address]- 7885 May, [facility] [id number] [address]- 8487 May, Unspecified breast screening V76.10 [facility] [address] [id number] May, Dental examination V72.2 [facility] [id number] [address]- 1492 April, [facility] [id number] [address]- 4977 April, [facility] [id number] [id number] April, Dental examination V72.2 [facility] [address] [id number] [place] [id number] April, Dental examination V72.2 [facility] [address] [id number] [place] [address]- 7216 14 Mar, 2015 [facility] [address] [id number] [place] [address]- 7675 Mar, [facility] [address] [id number] [place] [address]- 8754 25 Jan, 2015 [facility] [address] [id number] [place]- 8515 25 Jan, 2015 [facility] [address] [id number] [place]- 7966 18 Jan, 2015 [facility] [address] [id number] [place] [address]- 7843 18 Jan, 2015 [facility] [address] [id number] [place] [address]- 2116 16 Jan, 2015 [facility] [address] [id number] [place] [address]- 9270 16 Jan, 2015 [facility] [address] [id number] [place] [address]- 9310 13 Jan, 2015 [facility] [address] [id number] [address]- 4291 13 Jan, 2015 [facility] [place] [facility] [address] [id number] [place]- 0195 11 Jan, 2015 [facility] [place] [facility] [address] [id number] [place]- 5278 11 Jan, 2015 [facility] [place] [facility] [address] [id number] [place] [address]- 9972 11 Jan, 2015 [facility] [place] [facility] [address] [id number] [address]- 3033 Jan, [facility] [place] [facility] [address] [id number] [place] [address]- 2869 Jan, [facility] [place] [facility] [address] [id number] [place] [address]- 2673 Jan, [facility] [place] [facility] [address] [facility] [id number] [place] [address]- 5163 Jan, 2014 [facility] [place] [facility] [address] [id number] [place] [address]- 9429 Jan, 2014 [facility] [place] [facility] [address] [id number] [place] [address]- 6872 Jan, 2014 [facility] [place] [facility] [address] [facility] [id number] [place] [address]- 2429 Jan, 2014 [facility] [place] [facility] [address] [facility] [id number] [place] [address]- 9516 Jan, [facility] [place] [facility] [address] [facility] [id number] [place] [address] Jan, [facility] [place] [facility] [address] [facility] [place] [id number] [place] [address] Jan, [facility] [place] [facility] [address] [facility] [place] [id number] [place] [address] Jan, [facility] [place] [facility] [address] [facility] [place] [id number] [place] [address] Dec, [facility] [place] [facility] [address] [facility] [place] [id number] [place] [address] Dec, [facility] [place] [facility] [address] [id number] [place] [address] Dec, [facility] [place] [facility] [address] [facility] [place] [id number] [place] [address] Dec, [facility] [place] [facility] [address] [facility] [id number] [address] Nov, [facility] [place] [facility] [address] [id number] [place] [address] Nov, [facility] [place] [facility] [address] [id number] [place] [address] Nov, [facility] [place] [facility] [address] [id number] [place] [address] Nov, [facility] [place] [facility] [address] [id number] [place] [address] Nov, [facility] [place] [facility] [address] [id number] [place] [address] Nov, [facility] [place] [facility] [address] [id number] [place] [address] Nov, [facility] [place] [facility] [address] [id number] [place] [address] Oct, [facility] [place] [facility] [address] [id number] [place] [address] Oct, [facility] [place] [facility] [address] [id number] [place] [address] Oct, [facility] [place] [facility] [address] [id number] [place] [address] Oct, [facility] [place] [facility] [address] [id number] [place] [address] Oct, [facility] [place] [facility] [address] [id number] [place] [address] Oct, [facility] [place] [facility] [address] [id number] [place] [address] Oct, [facility] [place] [facility] [address] [id number] [place] [address] Oct, [facility] [place] [facility] [address] [id number] [place] [address] Oct, [facility] [place] [facility] [address] [id number] [place] [address] Oct, [facility] [place] [facility] [address] [id number] [place] [address] Oct, [facility] [place] [facility] [address] [id number] [place] [address] Oct, [facility] [place] [facility] [address] [id number] [place] [address]74 Sep, [facility] [place] [facility] [address] [id number] [place] [address] Sep, [facility] [place] [facility] [address] [id number] [place] [address] Sep, [facility] [place] [facility] [address] [id number] [place] [address] 15[address] Sep, [facility] [place] [facility] [address] [id number] [place] [address] Jul, [facility] [place] [facility] [address] [id number] [place] [address] 4[address] Jul, [facility] [place] [facility] [address] [id number] [place] [address] 1140 Jul, [facility] [place] [facility] [address] [id number] [place] [address] Jul, [facility] [place] [facility] [address] [id number] [place] [address] 2010 Jun, [facility] [place] [facility] [address] [id number] [place] [address] Jun, [facility] [place] [facility] [address] [id number] [place] [address] 77[address] Jun, [facility] [place] [facility] [address] [id number] [place] [address] 2590 Jun, [facility] [place] [facility] [address] [id number] [place] [address]- 8[address] May, [facility] [place] [facility] [address] [id number] [place] [address] 3[address] May, [facility] [address] [id number] [place] [address] April, [facility] [address] [id number] [place] [address] 4111 April, [facility] [address] [id number] [place] [address] 488[address] April, [facility] [address] [id number] [place] [address] 8[address] April, [facility] [address] [id number] [place] [address] 3734 April, [facility] [address] [id number] [place] [address] 2315 April, [facility] [address] [id number] [place] [address]- 4[address] April, [facility] [address] [id number] [place] [address] 8330 April, [facility] [address] [id number] [place] [address]- 2018 April, [facility] [address] [id number] [place] [address] 8613 Mar, [facility] [address] [id number] [place] [address] 9941 Mar, [facility] [address] [id number] [place] [address]- 9149 Mar, [facility] [place] [facility] [address] [id number] [place] [address] 2305 Mar, [facility] [address] [id number] [place] [address]- 6809 Jan, [facility] [address] [id number] [place] [address] 8210 Jan, [facility] [place] [facility] [address] [id number] [place] [address] 406[address] Jan, [facility] [place] [facility] [address] [id number] [place] [address]- 5897 Jan, [facility] [place] [facility] [address] [id number] [place] [address]- 4277 Jan, [facility] [place] [facility] [address] [id number] [place] [address]- 9156 Jan, [facility] [place] [facility] [address] [id number] [place] [address]- 1405 Jan, [facility] [place] [facility] [address] [id number] [place] [address]- 3134 Jan, [facility] [place] [facility] [address] [id number] [place] [address]- 1155 Jan, [facility] [place] [facility] [address] [id number] [place] [address]- 9718 Jan, [facility] [place] [facility] [address] [id number] [place] [address]- 0028 Jan, [facility] [place] [facility] [address] [id number] [place] [address]- 4702 Jan, [facility] [place] [facility] [address] [id number] [place] [address]- 8955 Dec, [facility] [place] [facility] [address] [id number] [place] [address]- 1141 Dec, [facility] [place] [facility] [address] [id number] [place] [address]- 2112 Dec, [facility] [place] [facility] [address] [id number] [place] [address]- 7952 Dec, [facility] [place] [facility] [address] [id number] [place] [address]- 9478 Nov, [facility] [place] [facility] [address] [id number] [place] [address]- 1993 Nov, [facility] [place] [facility] [address] [id number] [place] [address]- 4580 Nov, [facility] [place] [facility] [address] [id number] [place] [address]- 5115 Nov, [facility] [place] [facility] [address] [id number] [place] [address]- 2679 Oct, [facility] [place] [facility] [address] [id number] [place] [address]- 2080 Oct, [facility] [place] [facility] [address] [id number] [place] [address]- 8734 Sep, [facility] [place] [facility] [address] [id number] [place] [address]- 7466 Sep, [facility] [place] [facility] [address] [id number] [place] [address]- 1037 Jul, [facility] [place] [facility] [address] [id number] [place] [address]- 4092 Jul, [facility] [place] [facility] [address] [id number] [place] [address]- 1686 Jun, [facility] [place] [facility] [address] [id number] [place] [address]- 1143 Jun, [facility] [place] [facility] [address] [id number] [place] [address]- 7710 Jun, [facility] [place] [facility] [address] [id number] [place] [address]- 5671 May, [facility] [place] [facility] [address] [id number] [place] [address]- 8463 May, [facility] [place] [facility] [address] [id number] [place] [address]- 5131 May, [facility] [place] [facility] [address] [id number] [place] [address]- 4569 May, [facility] [place] [facility] [address] [id number] [place] [address]- 7959 May, [facility] [address] [id number] [place] [address]- 4692 April, [facility] [address] [id number] [place] [address]- 7102 April, [facility] [address] [id number] [place] [address]- 7902 April, [facility] [address] [id number] [place] [address]- 9021 April, [facility] [address] [id number] [place] [address]- 1059 April, [facility] [address] [id number] [place] [address]- 4123 April, [facility] [address] [id number] [place] [address]- 7811 Mar, [facility] [address] [id number] [place] [address]- 6346 Mar, [facility] [address] [id number] [place] [address]- 1459 Jan, [facility] [address] [id number] [place] [address]- 7522 Jan, [facility] [address] [id number] [place] [address]- 1794 Jan, [facility] [address] [id number] [place] [address]- 8467 Jan, [facility] [place] [facility] [address] [id number] [place] [address]- 9076 Jan, [facility] [place] [facility] [address] [id number] [place] [address]- 8372 Jan, [facility] [address] [id number] [place] [address]- 3481 05 Jan, 2012 [facility] [address] [id number] [place] [address]- 6856 04 Jan, 2013 [facility] [address] [id number] [place] [address] 2546 03 Jan, 2013 [facility] [address] [id number] [place] [address]- 4776 02 Jan, 2013 [facility] [address] [id number] [place] [address]- 4934 Jan, [facility] [address] [id number] [place] [address]- 8701 Dec, [facility] [address] [id number] [place] [address]- 6042 Nov, [facility] [address] [id number] [place] [address]- 4112 Nov, [facility] [address] [id number] [place] [address]- 0180 Nov, [facility] [address] [id number] [place] [address]- 8366 Nov, [facility] [address] [id number] [place] [address]- 3546 Nov, [facility] [address] [id number] [place] [address]- 8675 Nov, [facility] [address] [id number] [place] [address]- 2541 Nov, [facility] [address] [id number] [place] [address]- 9377 Nov, [facility] [address] [id number] [place] [address]- 9858 Nov, [facility] [address] [facility] [id number] [place] [address]- 2133 18 Nov, 2012 [facility] [place] [facility] [address] [id number] [place] [address]- 3846 18 Nov, 2012 [facility] [place] [facility] [address] [id number] [place] [address]- 8386 Nov, [facility] [place] [facility] [address] [id number] [place] [address]- 1656 Nov, [facility] [place] [facility] [address] [id number] [place] [address]- 6696 17 Oct, 2012 [facility] [place] [facility] [address] [id number] [place] [address]- 2216 Oct, [facility] [place] [facility] [address] [id number] [place] [address]- 5982 Oct, [facility] [place] [facility] [address] [id number] [place] [address]- 9668 19 Sep, 2012 [facility] [place] [facility] [address] [id number] [place] [address]- 7124 19 Sep, 2012 [facility] [place] [facility] [address] [id number] [place] [address]- 2348 10 Sep, 2012 [facility] [place] [facility] [address] [id number] [place] [address]- 0479 10 Sep, 2012 [facility] [place] [facility] [address] [id number] [place] [address]- 4173 27 Aug, 2012 [facility] [place] [facility] [address] [id number] [place] [address]- 0610 20 Aug, 2012 [facility] [place] [facility] [address] [id number] [place] [address]- 5930 24 Jul, 2012 [facility] [place] [facility] [address] [id number] [place] [address]- 4336 27 May, 2012 [facility] [place] [facility] [address] [id number] [place] [address]- 9962 14 May, 2012 [facility] [place] [facility] [address] [id number] [place] [address]- 2693 May, [facility] [address] [id number] [place] [address]- 3799 April, [facility] [place] [facility] [address] [id number] [place] [address]- 4389 Mar, [facility] [place] [facility] [address] [id number] [place] [address]- 7086 Mar, [facility] [place] [facility] [address] [id number] [place] [address]- 2224 Mar, [facility] [place] [facility] [address] [id number] [place] [address]- 5898 Jan, [facility] [place] [facility] [address] [id number] [place] [address]- 0854 Jan, [facility] [place] [facility] [address] [id number] [place] [address]- 4088 Jan, [facility] [place] [facility] [address] [id number] [place] [address]- 6022 Dec, [facility] [place] [facility] [address] [id number] [place] [address]- 2595 Dec, [facility] [place] [facility] [address] [id number] [place] [address]- 1591 Dec, [facility] [place] [facility] [address] [id number] [address]- 4134 Dec, [facility] [place] [facility] [address] [id number], [place] [address]- 6084 Nov, [facility] [place] [facility] [address] [id number] [place] [address]- 8282 Nov, [facility] [place] [facility] [address] [id number] [place] [address]- 4794 Nov, [facility] [place] [facility] [address] [id number] [place] [address]- 2546 Oct, [facility] [place] [facility] [address] [id number] [place] [address]- 1118 31 Sep, 2011 [facility] [address] [id number] [place] [address]- 7936 26 Sep, 2011 [facility] [place] [facility] [address] [id number] [place] [address] 2546 13 Sep, 2011 [facility] [address] [id number] [place] [address]- 2176 15 Nov, 2010 [facility] [place] [facility] [address] [id number] [place] [address] 2546 23 Oct, 2010 [facility] [place] [facility] [address] [id number] [place] [address]- 2566 19 Oct, 2010 [facility] [place] [facility] [address] [id number] [place] [address]- 0733 18 Oct, 2010 [facility] [address] [id number] [place] [address]- 7369 16 Oct, 2010 [facility] [place] [facility] [address] [id number] [place] [address]- 0115 11 Sep, 2010 [facility] [place] [facility] [address] [id number] [place] [address]- 2654 April, [facility] [address] [facility] [id number] [place] [address]- 5957 29 Nov, 2009 [facility] [place] [facility] [address] [id number] [place] [address] 2546 24 Nov, 2009 [facility] [place] [facility] [address] [id number] [place] [address]- 2549 22 Nov, 2009 [facility] [place] [facility] [address] [id number] [place] [address] 2546 10 Nov, 2009 [facility] [place] [facility] [address] [id number] [place] [address]- 2547 10 Nov, 2009 [facility] [place] [facility] [address] [id number] [place] [address] 2543 Oct, [facility] [address] [facility] [place] [id number] [place] [address] Oct, [facility] [address] [facility] [place] [id number] [place] [address] Sep, [facility] [address] [facility] [place] [place] [id number] [place] [address]- 9385 Jan, IMMUNIZATIONS No Known Immunizations SOCIAL HISTORY [...] Medical History Depression Medical History At [facility], [facility] 04/2016 Started on Eliquis Medical History Anemia 04/2016 postsurgical hip fx Surgical History right hip replacement w/ Dr. Bruce 2011 Surgical History triple bypass surgery 2003 Surgical History S/P left hip IM [facility] (Intertrechanteric hip fx) 04/28/16 Hospitalization History surgeries Hospitalization History Hypertension Hospitalization History ER for a concussion 11/24/15 Hospitalization History Intertrechanteric hip fx 04/27/16 Hospitalization History [facility] ([facility]patient [facility]) Hx of 3 inpatient psych treatments in past in [place] oct 2016 [facility]ization History [facility] Nov 2016
--- OUTSIDE RECORDS SUMMARY | 2018-08-20 13:07 | XMS REPORT ---
Author Author [facility] Address [address] [place] [address] Care Team Providers Care Commissary Agent Name Role Phone WOLF AGUIRRE Unavailable PROBLEMS Type Condition ICD9-CM Code [id number] Code Onset Dates Condition Status SNOMED Code Problem Sundowning F05 Active 633866209 Problem Constipation, unspecified constipation type K59.00 Active 16963362 Problem Reactive depression F32.9 Active 18594727 Problem Vascular dementia with behavior disturbance F01.51 Active 438282883085333 Problem Insomnia, unspecified type G47.00 Active 145271345 Problem Generalized anxiety disorder F41.1 Active 84094408 Problem Other chronic pain G89.29 Active 44817174 Problem Severe episode of recurrent major depressive disorder, without psychotic features F33.2 Active 47601883 Problem Slow transit constipation K59.01 Active 45963671 Problem 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 Active 699671909 Problem Obsessive thinking F42.8 Active 54139287 Problem Failure to thrive in adult R62.7 Active 808644901 Problem Dysthymic disorder F34.1 Active 68819467 Problem Hypertension I10 Active 61040599 Problem Mood disorder F39 Active 77745305 Problem Irritable bowel syndrome with diarrhea K58.0 Active 062452373 Problem Oropharyngeal dysphagia R13.12 Active 69789491 Problem 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 Active 30641463 Problem Other chronic pain G89.29 Active 32168738 Problem Primary insomnia F51.01 Active 9231549 Problem Poor appetite R63.0 Active 39869225 Problem Atherosclerotic heart disease of [place] 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 Active 423031168663946 Problem Iron deficiency anemia secondary to inadequate dietary iron intake D50.8 Active 878038910 Problem Coarse tremors G25.2 Active 33369004 Problem Gastroesophageal reflux disease without esophagitis K21.9 Active 985427944 Problem Essential hypertension I10 Active 10908872 ALLERGIES No Information ENCOUNTERS Encounter Location Date Diagnosis [facility] [address] [address] Mar, [facility] [id number] [place] [address] 64592- 3815 Mar, [facility] [address], [place] [address] 9[address] Jan, [place] [id number] [place] [address] 25644- 3306 Jan, [facility] [address] [id number] Jan, Constipation, unspecified constipation type K59.00 and Other chronic pain G89.29 [facility] [id number] [place] [address] 09472- 1702 Jan, [facility] [address] [place] [id number] Jan, Obsessive thinking F42.8 and Coarse tremors G25.2 [facility] [id number] [place] [address] [id number] Jan, [facility] [id number] [place] [address] [id number] Jan, [facility] [address] [place] [id number] Jan, Generalized anxiety disorder F41.1 ; Obsessive thinking F42.8 ; Callus of foot L84 and 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 [facility] [address] [address] Dec, Generalized anxiety disorder F41.1 and Severe episode of recurrent major depressive disorder, without psychotic features F33.2 [facility] [id number] [place] [address] 54856- 6342 Nov, [facility] [id number] [place] [address] 16003- 2453 Nov, [facility] [address] [place] [id number] Nov, Oropharyngeal dysphagia R13.12 ; Generalized anxiety disorder F41.1 and 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 [id number] [place] [address] [id number] Nov, [facility] [id number] [place] [address] 00333- 1444 Nov, [facility] [id number] [place] [address] 57292- 2622 Nov, [facility] [id number] [place] [address] 14259- 2849 Oct, Constipation, unspecified constipation type K59.00 and Mood disorder F39 [facility] [id number] [place] [address] 35411- 7072 Oct, [facility] [id number] [place] [address] [id number] Sep, [facility] [id number] [place] [id number], [facility] [id number] [place] [id number], [facility] [id number] [place] [address] [id number] Sep, [facility] [address] [place] [id number] Sep, Generalized abdominal pain R10.84 [facility] [address], [place] [address] Sep, [facility] [id number] [place] [address] [id number] Sep, Generalized anxiety disorder F41.1 and Primary insomnia F51.01 [facility] [id number] [place] [address] [id number] Aug, [facility] [id number] [id number] Aug, Generalized anxiety disorder F41.1 [facility] [address], [place] [address]- 4776 Jul, [facility] [place] [address] [place] [id number] Jul, Obsessive thinking F42.8 [facility] [id number] [place] [address] 94182- 6808 Jul, Generalized anxiety disorder F41.1 and Irritable bowel syndrome with diarrhea K58.0 [facility] [id number] [place] [address] [id number] Jul, Generalized anxiety disorder F41.1 [facility] [id number] [place] [address] [id number] Jun, Generalized anxiety disorder F41.1 [facility] [address], [place] [address] 14[address] May, [facility] [address] [id number] May, Generalized anxiety disorder F41.1 ; Irritable bowel syndrome with diarrhea K58.0 and Coarse tremors G25.2 [facility] [address] [address] April, [facility] [address], [place] [address] 6536 April, [facility] [address] [address] April, [facility] [address] [place] [address] 48600- 2469 Mar, [facility] [address] [place] [id number] Mar, Severe episode of recurrent major depressive disorder, without psychotic features F33.2 and Pain in left hip M25.552 [facility] [address], [place] [address]- 3484 Mar, [facility] [id number] [place] [address] 61235- 0320 Mar, [facility] [id number] [place] [address] 73663- 1901 Mar, [facility] [id number] [place] [address] 23009- 2310 Mar, Pain in right hip M25.551 and Self-care deficit in patient living alone R46.89 [facility] [id number] [place] [address] 83735 -2771 Jan, Other chronic pain G89.29 ; Pain in left hip M25.552 and Slow transit constipation K59.01 [facility] [id number] [place] [address] 67607- 1545 Jan, [facility] [id number] [place] [address] 08088- 2698 Dec, Other depression F32.89 ; Constipation, unspecified constipation type K59.00 and Insomnia, unspecified type G47.00 [facility] [address] [place] [address] 73087- 5186 Nov, Reactive depression F32.9 ; Chronic idiopathic constipation K59.04 ; Generalized anxiety disorder F41.1 ; Coarse tremors G25.2 ; Gastroesophageal reflux disease without esophagitis K21.9 ; Dysthymic disorder F34.1 ; Vitamin deficiency, unspecified E56.9 and Primary insomnia F51.01 [facility] [id number] [address] 2822 Nov, [facility] [id number] [place] [address] 09732- 7439 Nov, [facility] [id number] [place] [address] 59726- 6035 Nov, [facility] [address] [place] [address]- 9899 Nov, Reactive depression F32.9 ; Essential hypertension I10 ; Generalized anxiety disorder F41.1 ; Atherosclerotic heart disease of [place] 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 ; Pain in right hip M25.551 ; Other chronic pain G89.29 ; Chronic idiopathic constipation K59.04 ; Primary insomnia F51.01 ; Coarse tremors G25.2 ; Gastroesophageal reflux disease without esophagitis K21.9 ; Iron deficiency anemia secondary to inadequate dietary iron intake D50.8 and Vitamin deficiency, unspecified E56.9 [facility] [address] 30013- 9526 Oct, [place] [facility] [address] 82755- 2869 Oct, [facility] [address] 34380- 3023 Oct, [facility] [address] 84348- 6107 16 Oct, 2016 Generalized anxiety disorder F41.1 ; Poor appetite R63.0 ; Dehydration E86.0 and Failure to thrive in adult R62.7 [facility] [address] 33678- 6388 07 Oct, 2016 Generalized anxiety disorder F41.1 and Failure to thrive in adult R62.7 [facility] [id number] [place] [address] 96997- 8287 Oct, [facility] [address] 05364- 0534 Oct, [facility] [address] 67509 -1136 Sep, Vaginal discharge N89.8 and Acute cystitis with hematuria N30.01 [facility] [address] 13864- 4474 Sep, [facility] [address] [place] [address]- 9009 Sep, [facility] [id number] [place] [address] 99622- 0040 Sep, Dysthymic disorder F34.1 ; Acute vaginitis N76.0 ; Dysuria R30.0 and Vaginal yeast infection B37.3 [facility] [place] [id number] [place] [address] 68500- 4362 Aug, [facility] [address] 45563- 4418 Aug, [facility] [address] 34429 -9173 Aug, Foul smelling urine R82.90 ; Rapid heart rate R00.0 and Flatulence R14.3 [place] [place] [id number] [place] [address] 94706- 3590 Aug, [facility] [id number] [place] [address] 38518- 2817 Jul, Constipation, unspecified constipation type K59.00 ; Weak R53.1 ; Poor appetite R63.0 ; Coronary artery disease involving [place] heart without angina pectoris, unspecified vessel or lesion type I25.10 ; Fatigue, unspecified type R53.83 ; Urinary incontinence, unspecified type R32 and Insomnia, unspecified type G47.00 [place] [place] [id number] [place] [address] 32057- 3764 Jul, [place] [place] [id number] [place] [address] 29014- 7016 Jun, Dysuria R30.0 [facility] [place] [id number] [place] [address] 51493- 0721 Jun, [facility] [id number] [place] [address] 23271- 9900 Jun, Urinary tract infection, site not specified N39.0 ; Acute vaginitis N76.0 and Diarrhea, unspecified type R19.7 [facility] [address], [place] [address]- 1391 May, [facility] [id number] [place] [address] 35101- 9250 April, [facility] [address] [id number] April, Encounter for dental examination Z01.20 [facility] [id number] [place] [address] 54181- 4064 April, [facility] [id number] [place] [address] 87483- 7231 April, Tremor R25.1 and Episodic tension-type headache, not intractable G44.219 [facility] [id number] [place] [address] 51143- 7066 Mar, [facility] [id number] [place] [address] 51909- 3621 Jan, Mood disorder F39 [facility] [id number] [place] [address] 91825 -9914 Jan, [facility] [id number] [place] [address] 98432- 0170 Jan, [facility] [address], [place] [address]- 2844 Jan, [facility] [id number] [place] [address] 51517- 7136 Jan, [facility] [id number] [place] [address] 88758- 7919 Jan, [facility] [id number] [place] [address] 43691- 8096 Jan, [facility] [id number] [place] [address] 66609 -5943 Dec, Acute diarrhea R19.7 [facility] [id number], [place] [address]- 8423 Dec, [facility] [id number] [place] [address] 44652- 1026 Dec, [facility] [id number] [place] [address] 88264- 7533 Dec, [facility] [id number] [place] [address] 40762 -6373 Dec, N&V (nausea and vomiting) R11.2 [facility] [id number] [place] [address] 21170- 5753 Dec, Generalized anxiety disorder F41.1 [facility] [id number] [place] [address] 15938- 4145 Dec, Generalized anxiety disorder F41.1 [facility] [id number] [place] [address] 95409- 3720 Nov, Post concussion syndrome F07.81 [facility] [id number] [place] [address] 56336- 5586 Nov, Generalized anxiety disorder F41.1 [facility] [id number] [place] [address] 57253- 7036 Nov, [facility] [id number] [place] [address] 52578- 3270 Nov, Generalized anxiety disorder F41.1 [facility] [id number] [place] [address] [id number] Oct, Dental caries K02.9 [facility] [address] [place] [address] 05705- 9037 Oct, [facility] [id number] [place] [address] [id number] Oct, Dental examination Z01.20 [facility] [id number] [place] [address] [id number] Oct, Encounter for dental examination Z01.20 [place] [address] 90746- 2929 Oct, CAD (coronary artery disease) I25.10 [place] [address] 64849- 2416 Sep, Generalized anxiety disorder F41.1 [place] [address] 19758- 3257 Sep, [facility] [address] 67743- 5843 Sep, Rash and other nonspecific skin eruption R21 and Yeast vaginitis B37.3 [place] [address] 45261- 4697 Sep, Generalized anxiety disorder F41.1 [place] [address] 36395- 1895 Aug, Insect bites 919.4 and Hemorrhoids 455.6 [place] [address] 21463- 1127 Aug, Generalized anxiety disorder 300.02 [place] [address] 38900- 6812 Aug, [facility] [address] 23555- 4257 Aug, [facility] [address] 79150- 5967 Aug, Generalized anxiety disorder 300.02 ; No condition on [place] V71.09 ; Heart problem 429.9 and Hypertension 401.9 [place] [address] 20130- 2474 Aug, [facility] [address] 73387- 0483 Jul, [place] [address] 82954- 0771 Jul, [facility] [address] [address]- 8402 Jul, [facility] [address], [place] [address]- 2795 Jul, [facility] [address], [place] [address]- 7143 Jul, Rash 782.1 [facility] [id number] [place] [address] 82342- 6682 Jul, UTI (urinary tract infection) 599.0 [facility] [address] [place] [address] 83922- 7571 Jul, [facility] [address] [place] [address] 05924- 1672 Jun, Dysthymia 300.4 and Anxiety 300.00 [facility] [id number] [place] [address] 16952- 5670 Jun, 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 [facility] [address], [place] [address]- 6203 May, [facility] [address], [place] [address]- 2278 May, [facility] [address], [place] [address]- 3124 May, Unspecified breast screening V76.10 [facility] [id number] [place] [address] [id number] May, Dental examination V72.2 [facility] [address], [place] [address]- 8543 April, [facility] [address], [place] [address]- 7932 April, [facility] [address] [id number] April, Dental examination V72.2 [facility] [place] [facility] [address] [id number] [id number] April, Dental examination V72.2 [facility] [place] [facility] [address] [id number] [place] [address]- 4205 14 Mar, 2015 [facility] [place] [facility] [address] [id number] [place] [address]- 5710 13 Mar, 2015 [facility] [place] [facility] [address] [id number] [place] [address]- 9402 25 Jan, 2015 [facility] [place] [facility] [address] [id number] [place] [address]- 4053 25 Jan, 2015 [facility] [place] [facility] [address] [id number] [place] [address]- 7004 18 Jan, 2015 [facility] [place] [facility] [address] [id number] [place] [address]- 4987 18 Jan, 2015 [facility] [place] [facility] [address] [id number], [place] [address]- 9970 16 Jan, 2015 [facility] [place] [facility] [address] [id number] [address]- 4247 16 Jan, 2015 [facility] [place] [facility] [address] [id number], [place] [address]- 8977 13 Jan, 2015 [facility] [place] [facility] [address] [id number] [address]- 5192 13 Jan, 2015 [facility] [place] [facility] [address] [id number], [place] [address]- 6626 11 Jan, 2015 [facility] [place] [facility] [address] [id number], [place] [address]- 7369 11 Jan, 2015 [facility] [place] [facility] [address] [id number][place]- 4189 11 Jan, 2015 [facility] [place] [facility] [address] [id number][place]- 0376 11 Jan, 2015 [facility] [place] [facility] [address] [id number][place] [address]- 7332 Jan, [facility] [place] [facility] [address] [id number] [place] [address]- 9971 Jan, [facility] [place] [facility] [address] [id number] [place] [address]- 1796 Jan, 2014 [facility] [place] [facility] [address] [id number] [place] [address]- 7016 Jan, 2014 [facility] [place] [facility] [address] [id number] [place] [address]- 2112 Jan, 2014 [facility] [place] [facility] [address] [id number] [place] [address]- 6079 Jan, 2014 [facility] [place] [facility] [address] [id number] [place] [address]- 3316 Jan, 2014 [facility] [place] [facility] [address] [facility] [id number] [place] [address]- 0287 Jan, 2014 [facility] [place] [facility] [address] [facility] [id number] [place] [address]- 2496 Jan, [facility] [place] [facility] [id number] [place] [address]- 9096 Jan, [facility] [place] [facility] [address] [facility] [id number] [place] [address]- 1830 Dec, [facility] [place] [facility] [address] [id number] [place] [address]- 3681 Dec, [facility] [place] [facility] [address] [id number] [place] [address]- 1643 Dec, [facility] [place] [facility] [address] [id number] [place] [address]- 2805 Dec, [facility] [place] [facility] [address] [facility] [id number] [place] [address]- 7027 Nov, [facility] [place] [facility] [address] [facility] [id number] [place] [address]- 6494 Nov, [facility] [place] [facility] [address] [id number] [place] [address]- 3559 Nov, [facility] [place] [facility] [address] [id number] [place] [address]- 3221 Nov, [facility] [place] [facility] [address] [id number] [place] [address]- 6477 Nov, [facility] [place] [facility] [address] [id number] [place] [address] Nov, [facility] [place] [facility] [address] [id number] [place] [address] Nov, [facility] [place] [facility] [address] [id number] [place] [address] Oct, [facility] [place] [facility] [address] [id number] [place] [address] Oct, [facility] [place] [facility] [address] [id number] [place] [address] Oct, [facility] [place] [facility] [address] [id number] [place] [address] Oct, [facility] [place] [facility] [address] [id number], [place] [address] Oct, [facility] [place] [facility] [address] [id number], [place] [address] Oct, [facility] [place] [facility] [address] [id number], [place] [address] Oct, [facility] [place] [facility] [address] [id number] [place] [address] Oct, [facility] [place] [facility] [address] [id number] [place] [address] Oct, [facility] [place] [facility] [address] [id number], [place] [address] Oct, [facility] [place] [facility] [address] [id number], [place] [address] Oct, [facility] [place] [facility] [address] [id number] [place] [address] Oct, [facility] [place] [facility] [address] [id number] [place] [address] Sep, [facility] [place] [facility] [address] [id number] [place] [address] Sep, [facility] [place] [facility] [address] [id number] [place] [address] Sep, [facility] [place] [facility] [address] [id number] [place] [address] Sep, [facility] [place] [facility] [address] [id number] [place] [address] Jul, [facility] [place] [facility] [address] [id number] [place] [address] Jul, [facility] [place] [facility] [address] [id number] [place] [address] Jul, [facility] [place] [facility] [address] [id number] [place] [address] Jul, [facility] [place] [facility] [address] [facility] [id number] [place] [address] Jun, [facility] [place] [facility] [address] [id number] [place] [address] Jun, [facility] [place] [facility] [address] [id number] [place] [address] Jun, [facility] [place] [facility] [address] [id number] [place] [address] Jun, [facility] [place] [facility] [address] [facility] [id number] [place] [address] May, [facility] [place] [facility] [address] [id number] [place] [address] May, [facility] [place] [facility] [address] [id number] [place] [address] April, [facility] [place] [facility] [address] [id number] [place] [address] April, [facility] [place] [facility] [address] [id number] [place] [address] April, [facility] [place] [facility] [address] [id number] [place] [address] April, [facility] [place] [facility] [address] [id number] [place] [address] April, [facility] [place] [facility] [address] [id number] [place] [address] April, [facility] [place] [facility] [address] [id number] [place] [address] April, [facility] [place] [facility] [address] [id number] [place] [address] April, [facility] [place] [facility] [address] [id number] [place] [address] April, [facility] [place] [facility] [address] [id number] [place] [address] Mar, [facility] [place] [facility] [address] [id number] [place] [address] Mar, [facility] [place] [facility] [address] [id number] [place] [address] Mar, [facility] [place] [facility] [address] [id number] [place] [address] 0913 Mar, [facility] [place] [facility] [address] [id number] [place] [address] Jan, [facility] [place] [facility] [address] [id number] [place] [address] Jan, [facility] [place] [facility] [address] [id number] [place] [address] 3867 Jan, [facility] [place] [facility] [address] [id number] [place] [address] Jan, [facility] [place] [facility] [address] [id number] [place] [address] Jan, [facility] [place] [facility] [address] [id number] [place] [address] 25[address] Jan, [facility] [place] [facility] [address] [id number] [place] [address] 6398 Jan, [facility] [place] [facility] [address] [id number] [place] [address] 9847 Jan, [facility] [place] [facility] [address] [id number] [place] [address] 8769 Jan, [facility] [place] [facility] [address] [id number] [place] [address] 59[address] Jan, [facility] [place] [facility] [address] [id number] [place] [address] 3940 Jan, [facility] [place] [facility] [address] [id number] [place] [address]- 7190 Jan, [facility] [place] [facility] [address] [id number] [place] [address] 4363 Dec, [facility] [place] [facility] [address] [id number] [place] [address] 8570 Dec, [facility] [place] [facility] [address] [id number] [place] [address] 5949 Dec, [facility] [place] [facility] [address] [id number] [place] [address]- 1575 Dec, [facility] [place] [facility] [address] [id number] [place] [address] 6643 Nov, [facility] [place] [facility] [address] [id number] [place] [address] 4058 Nov, [facility] [place] [facility] [address] [id number] [place] [address]- [address]34 Nov, [facility] [address] [id number] [place] [address] 6747 Nov, [facility] [place] [facility] [address] [id number] [place] [address] 2546 Oct, [facility] [address] [id number] [place] [address] 5985 Oct, [facility] [place] [facility] [address] [id number] [place] [address] 3511 Sep, [facility] [address] [id number] [place] [address] 75[address] Sep, [facility] [address] [id number] [place] [address] 4[address] Jul, [facility] [place] [facility] [address] [id number] [place] [address]- 8736 Jul, [facility] [address] [id number] [place] [address] 8700 Jun, [facility] [place] [facility] [address] [id number] [place] [address] Jun, [facility] [address] [id number] [place] [address]447 Jun, [facility] [place] [facility] [address] [id number] [place] [address] 3540 May, [facility] [place] [facility] [address] [id number] [place] [address] 4439 May, [facility] [place] [facility] [address] [id number] [place] [address]695 17 May, 2013 [facility] [place] [facility] [address] [id number] [place] [address] 13 May, 2013 [facility] [place] [facility] [address] [id number] [place] [address] 1253 May, [facility] [address] [id number] [place] [address] 3178 April, [facility] [place] [facility] [address] [id number] [place] [address] 4227 April, [facility] [address] [id number] [place] [address] April, [facility] [place] [facility] [address] [id number] [place] [address]73 April, [facility] [address] [id number] [place] [address] April, [facility] [place] [facility] [address] [id number] [place] [address] 0444 April, [facility] [address] [id number] [place] [address] 4486 Mar, [facility] [address] [id number] [place] [address] 3664 Mar, [facility] [address] [id number] [place] [address] 6123 Jan, [facility] [place] [facility] [address] [id number] [place] [address] Jan, [facility] [place] [facility] [address] [id number] [place] [address] 9338 Jan, [facility] [place] [facility] [address] [id number], [place] [address] Jan, [facility] [place] [facility] [address] [id number] [place] [address] 8884 Jan, [facility] [place] [facility] [address] [id number] [place] [address]- 1113 Jan, [facility] [place] [facility] [address] [id number] [place] [address]- 1278 Jan, [facility] [place] [facility] [address] [id number] [place] [address]- [address]30 04 Jan, 2012 [facility] [address] [id number] [place] [address]- [address]556 03 Jan, 2012 [facility] [address] [id number] [place] [address] 2546 02 Jan, 2012 [facility] [address] [id number] [place] [address]- 0656 Jan, [facility] [address] [id number] [place] [address] 2549 Dec, [facility] [address] [id number] [place] [address]- 1200 Nov, [facility] [address] [id number] [place] [address]- 6286 Nov, [facility] [address] [id number] [place] [address]- 3656 Nov, [facility] [address] [id number] [place] [address]- 7151 Nov, [facility] [address] [id number] [place] [address]- 2344 Nov, [facility] [address] [facility] [id number] [place] [address]- 9938 Nov, [facility] [address] [id number] [place] [address] 2546 Nov, [facility] [address] [id number] [place] [address] 2546 Nov, [facility] [address] [id number] [place] [address]- 3916 Nov, [facility] [address] [id number] [place] [address]- 2546 Nov, [facility] [address] [id number] [place] [address]- 7775 Nov, [facility] [place] [facility] [address] [id number] [place] [address]- 2218 Nov, [facility] [place] [facility] [address] [id number] [place] [address]- 1906 Nov, [facility] [place] [facility] [address] [id number] [place] [address]- 0906 Oct, [facility] [place] [facility] [address] [id number] [place] [address]- 2546 Oct, [facility] [place] [facility] [address] [id number] [place] [address]- 8176 Oct, [facility] [place] [facility] [address] [id number] [place] [address]- 3466 Sep, [facility] [place] [facility] [address] [facility] [id number] [place] [address]- 3886 Sep, [facility] [place] [facility] [address] [id number] [place] [address]- 9672 Sep, [facility] [place] [facility] [address] [facility] [id number] [place] [address]- 4533 Sep, [facility] [place] [facility] [address] [facility] [id number], [place] [address]- [address] 27 Aug, 2012 [facility] [place] [facility] [address] [facility] [id number] [place] [address]- 6396 20 Aug, 2012 [facility] [place] [facility] [address] [id number], [place] [address]- 4496 24 Jul, 2012 [facility] [place] [facility] [address] [id number] [place] [address]- 7806 May, [facility] [place] [facility] [address] [id number], [place] [address]- 6316 14 May, 2012 [facility] [place] [facility] [address] [facility] [id number], [place] [address]- [address] 14 May, 2012 [facility] [place] [facility] [address] [id number], [place] [address]- 2966 April, [facility] [address] [id number] [place] [address]- 4512 Mar, [facility] [place] [facility] [address] [id number] [place] [address]- 7409 Mar, [facility] [place] [facility] [address] [id number] [place] [address]- 2741 Mar, [facility] [place] [facility] [address] [id number] [place] [address]- 2185 Jan, [facility] [place] [facility] [address] [id number] [place] [address]- 2307 Jan, [facility] [place] [facility] [address] [id number] [place] [address]- 9060 Jan, [facility] [address] [facility] [id number] [place] [address]- 3917 Dec, [facility] [place] [facility] [address] [id number] [place] [address]- 2273 Dec, [facility] [address] [facility] [id number] [place] [address]- 5170 Dec, [facility] [place] [facility] [address] [facility] [id number] [place] [address]- 8679 Dec, [facility] [place] [facility] [address] [id number] [place] [address]- 2796 Nov, [facility] [place] [facility] [address] [id number] [place] [address]- 9819 Nov, [facility] [place] [facility] [address] [id number] [place] [address]- 1319 Nov, [facility] [place] [facility] [address] [facility] [id number] [place] [address]- 5411 Oct, [facility] [place] [facility] [address] [facility] [id number] [place] [address]- 2691 31 Sep, 2011 [facility] [place] [facility] [address] [id number] [place] [address]- 5460 26 Sep, 2011 [facility] [place] [facility] [address] [id number] [place] [address]- 4426 13 Sep, 2011 [facility] [place] [facility] [address] [id number] [place] [address] 15 Nov, 2010 [facility] [place] [facility] [address] [id number] [place] [address]- 8146 23 Oct, 2010 [facility] [place] [facility] [address] [id number] [place] [address] 2546 19 Oct, 2010 [facility] [place] [facility] [address] [id number] [place] [address]- 5592 18 Oct, 2010 [facility] [place] [facility] [address] [id number] [place] [address]- 9396 16 Oct, 2010 [facility] [place] [facility] [address] [id number] [place] [address]- 4792 Sep, [facility] [place] [facility] [address] [id number] [place] [address]- 9011 April, [facility] [place] [facility] [address] [id number] [place] [address]- 3402 29 Nov, 2009 [facility] [place] [facility] [address] [id number] [place] [address]- 1267 24 Nov, 2009 [facility] [place] [facility] [address] [id number] [place] [address]- 9085 22 Nov, 2009 [facility] [place] [facility] [address] [id number] [place] [address] 2544 10 Nov, 2009 [facility] [place] [facility] [address] [id number] [place] [address] 2546 10 Nov, 2009 [facility] [place] [facility] [address] [id number] [place] [address] 2546 19 Oct, 2009 [facility] [place] [facility] [address] [id number] [place] [address] 2548 Oct, [facility] [address] [facility] [id number] [place] [address]- 2546 Sep, [facility] [address] [facility] [id number] [place] [address]- 2546 Jan, IMMUNIZATIONS No Known Immunizations SOCIAL HISTORY Never Assessed REASON FOR VISIT Controlled Med Refill PLAN OF CARE VITAL SIGNS MEDICATIONS Medication Instructions Dosage Frequency Start Date End Date Duration Status Klonopin 0.5 MG Orally at bedtime 1 tablet May, 28 days Active RESULTS No Results PROCEDURES No Known procedures INSTRUCTIONS MEDICATIONS ADMINISTERED No Known Medications MEDICAL (GENERAL) HISTORY Type Description Date Medical History Hypertension Medical History Heart disease CABG X3 Stress test 07/2015 Medical History Gastric ulcer Medical History Hyperlipidemia Medical History Headache syndrome Medical History Psychiatric disorders-depression/racing thoughts Medical History Depression Medical History At [facility] 04/2016 Started on Eliquis Medical History Anemia 04/2016 postsurgical hip fx Surgical History right hip replacement w/ Dr. Bruce 2011 Surgical History triple bypass surgery 2003 Surgical History S/P left hip IM Nail (Intertrechanteric hip fx) 04/28/16 Hospitalization History surgeries Hospitalization History Hypertension Hospitalization History ER for a concussion 11/24/15 Hospitalization History Intertrechanteric hip fx 04/27/16 Hospitalization History [facility] (inpatient [facility] 2 times) Hx of 3 inpatient psych treatments in past in [place] oct 2016 [facility]
--- OUTSIDE RECORDS SUMMARY | 2018-08-20 13:08 | XMS REPORT ---
Author Author WOLF AGUIRRE [facility] Address [address] [place] [address] Care Team Providers Care Court Commissioner Name Role Phone WOLF AGUIRRE Unavailable PROBLEMS Type Condition ICD9-CM Code [id number] Code Onset Dates Condition Status SNOMED Code Problem Sundowning F05 Active 283033157 Problem Constipation, unspecified constipation type K59.00 Active 78898718 Problem Reactive depression F32.9 Active 72563874 Problem Vascular dementia with behavior disturbance F01.51 Active 150131528087466 Problem Insomnia, unspecified type G47.00 Active 006706138 Problem Generalized anxiety disorder F41.1 Active 35050467 Problem Other chronic pain G89.29 Active 43546078 Problem Severe episode of recurrent major depressive disorder, without psychotic features F33.2 Active 79904147 Problem Slow transit constipation K59.01 Active 16592411 Problem 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 Active 698206625 Problem Obsessive thinking F42.8 Active 91968051 Problem Failure to thrive in adult R62.7 Active 867125007 Problem Dysthymic disorder F34.1 Active 00901203 Problem Hypertension I10 Active 68431916 Problem Mood disorder F39 Active 40347396 Problem Irritable bowel syndrome with diarrhea K58.0 Active 638641110 Problem Oropharyngeal dysphagia R13.12 Active 38440892 Problem 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 Active 80027286 Problem Other chronic pain G89.29 Active 36562073 Problem Primary insomnia F51.01 Active 2289651 Problem Poor appetite R63.0 Active 09741034 Problem Atherosclerotic heart disease of [place] 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 Active 950218952830741 Problem Iron deficiency anemia secondary to inadequate dietary iron intake D50.8 Active 097808841 Problem Coarse tremors G25.2 Active 82034639 Problem Gastroesophageal reflux disease without esophagitis K21.9 Active 890328835 Problem Essential hypertension I10 Active 86876954 ALLERGIES No Information ENCOUNTERS Encounter Location Date Diagnosis [facility] [address] [address] Jun, [facility] [place] [id number] Jun, Pain in left hip M25.552 ; Pain in right hip M25.551 and Primary insomnia F51.01 [facility] [id number] [place] [address] 00172- 6239 Jun, [facility] [address] [place] [id number] May, [facility] [id number] [place] [address] 64028- 7182 May, [facility] [id number] [place] [address] 86783- 1752 May, [facility] [address] [place] [id number] May, Mood disorder F39 [facility] [id number] [place] [address] 45658- 6125 May, [facility] [id number] [place] [address] 48638- 2408 April, [facility] [address] [place] [id number] April, Generalized anxiety disorder F41.1 ; Obsessive thinking F42.8 and Insomnia , unspecified type G47.00 [facility] [address] [place] [address] 17109- 5110 April, [facility] [id number] [place] [address] 05795- 4970 April, Rash of face R21 [facility] [address] [place] [address] 54801- 2387 Mar, [facility] [id number] [place] [address] 48770- 6258 Mar, [facility] [address] [address] 85[address] Mar, [place] [address] [place] [address] 79535- 4383 Jan, [place] [address] [place] [address] 72092- 1982 Jan, [facility] [address] [id number] Jan, Constipation, unspecified constipation type K59.00 and Other chronic pain G89.29 [facility] [address] [place] [address] 14119- 2462 Jan, [facility] [address] [id number] Jan, Obsessive thinking F42.8 and Coarse tremors G25.2 [place] [id number] [place] [id number] Jan, [place] [id number] [place] [id number] Jan, [facility] [address] [id number] Jan, Generalized anxiety disorder F41.1 ; Obsessive thinking F42.8 ; Callus of foot L84 and 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 [facility] [address] [place] [address] 26277- 8644 Dec, Generalized anxiety disorder F41.1 and Severe episode of recurrent major depressive disorder, without psychotic features F33.2 [facility] [address] [address] 0[address] Nov, [facility] [id number] [place] [address] 94142- 6868 Nov, [facility] [address] [place] [id number] Nov, Oropharyngeal dysphagia R13.12 ; Generalized anxiety disorder F41.1 and 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 [facility] [address] [address] 9123 Nov, [facility] [id number] [place] [id number] Nov, [facility] [address] [address] 36[address] Nov, [facility] [address] [address] 5533 Nov, [facility] [address] [address] Oct, Constipation, unspecified constipation type K59.00 and Mood disorder F39 [facility] [address] [address] 7256 Oct, [facility] [id number] [id number] Sep, [facility] [id number] [place] [id number] Sep, [facility] [id number] [id number] Sep, [facility] [id number] [place] [address] Sep, [facility] [address] [place] [id number] Sep, Generalized abdominal pain R10.84 [facility] [id number] [address] 2546 Sep, [facility] [id number] [place] [id number] Sep, Generalized anxiety disorder F41.1 and Primary insomnia F51.01 [facility] [id number] [place] [id number] Aug, [facility] [id number] [place] [id number] Aug, Generalized anxiety disorder F41.1 [facility] [address] [address] Jul, [facility] [address] [place] [id number] Jul, Obsessive thinking F42.8 [facility] [address] [address] 4[address] Jul, Generalized anxiety disorder F41.1 and Irritable bowel syndrome with diarrhea K58.0 [facility] [id number] [place] [address] [id number] Jul, Generalized anxiety disorder F41.1 [facility] [id number] [place] [id number] Jun, Generalized anxiety disorder F41.1 [facility] [address] [address] 112[address] May, [facility] [address] [place] [id number] May, Generalized anxiety disorder F41.1 ; Irritable bowel syndrome with diarrhea K58.0 and Coarse tremors G25.2 [facility] [address] [place] [address] 60897- 3955 April, [facility] [address] [address] 6214 April, [facility] [address] [address] 1435 April, [facility] [id number] [place] [address] 85535- 1067 Mar, [facility] [address] [place] [id number] Mar, Severe episode of recurrent major depressive disorder, without psychotic features F33.2 and Pain in left hip M25.552 [facility] [address] [address] 5782 Mar, [facility] [id number] [place] [address] 11893- 5954 Mar, [facility] [id number] [place] [address] 98431- 4310 Mar, [facility] [id number] [place] [address] 28923- 5711 Mar, Pain in right hip M25.551 and Self-care deficit in patient living alone R46.89 [facility] [id number] [place] [address] 41000 -1847 Jan, Other chronic pain G89.29 ; Pain in left hip M25.552 and Slow transit constipation K59.01 [facility] [id number] [place] [address] 51796- 3610 Jan, [facility] [id number] [place] [address] 92108- 9517 Dec, Other depression F32.89 ; Constipation, unspecified constipation type K59.00 and Insomnia, unspecified type G47.00 [facility] [id number] [place] [address] 29220- 5498 Nov, Reactive depression F32.9 ; Chronic idiopathic constipation K59.04 ; Generalized anxiety disorder F41.1 ; Coarse tremors G25.2 ; Gastroesophageal reflux disease without esophagitis K21.9 ; Dysthymic disorder F34.1 ; Vitamin deficiency, unspecified E56.9 and Primary insomnia F51.01 [facility] [id number] [place] [address] 49711- 3903 Nov, [facility] [id number] [place] [address] 13451- 5588 Nov, [place] [id number] [place] [address] 15306- 9045 Nov, [facility] [id number] [place] [address] 09833- 7791 Nov, Reactive depression F32.9 ; Essential hypertension I10 ; Generalized anxiety disorder F41.1 ; Atherosclerotic heart disease of [place] 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 ; Pain in right hip M25.551 ; Other chronic pain G89.29 ; Chronic idiopathic constipation K59.04 ; Primary insomnia F51.01 ; Coarse tremors G25.2 ; Gastroesophageal reflux disease without esophagitis K21.9 ; Iron deficiency anemia secondary to inadequate dietary iron intake D50.8 and Vitamin deficiency, unspecified E56.9 [facility] [id number] [place] [address] 18179- 5676 29 Oct, 2016 [facility] [id number] [place] [address] 93589- 1915 Oct, [facility] [id number] [place] [address] 88767- 2883 Oct, [place] [id number] [place] [address] 38437- 0223 16 Oct, 2016 Generalized anxiety disorder F41.1 ; Poor appetite R63.0 ; Dehydration E86.0 and Failure to thrive in adult R62.7 [facility] [id number] [place] [address] 18049- 7917 07 Oct, 2016 Generalized anxiety disorder F41.1 and Failure to thrive in adult R62.7 [facility] [id number] [place] [address] 84595- 6145 Oct, [facility] [id number] [place] [address] 94340- 2432 Oct, [facility] [id number] [place] [address] 51465 -5466 Sep, Vaginal discharge N89.8 and Acute cystitis with hematuria N30.01 [facility] [id number] [place] [address] 30703- 4623 Sep, [facility] [id number] [place] [address] 49506- 7961 Sep, [facility] [id number] [place] [address] 08779- 4578 Sep, Dysthymic disorder F34.1 ; Acute vaginitis N76.0 ; Dysuria R30.0 and Vaginal yeast infection B37.3 [place] [id number] [place] [address] 05424- 7732 Aug, [facility] [id number] [place] [address] 65643- 2587 Aug, [facility] [address] 15506 -0759 Aug, Foul smelling urine R82.90 ; Rapid heart rate R00.0 and Flatulence R14.3 [place] [address] 25684- 7956 Aug, [facility] [id number] [place] [address] 69865- 1081 Jul, Constipation, unspecified constipation type K59.00 ; Weak R53.1 ; Poor appetite R63.0 ; Coronary artery disease involving [place] heart without angina pectoris, unspecified vessel or lesion type I25.10 ; Fatigue, unspecified type R53.83 ; Urinary incontinence, unspecified type R32 and Insomnia, unspecified type G47.00 [place] [id number] [place] [address] 11519- 6739 Jul, [facility] [id number] [place] [address] 08513- 4557 Jun, Dysuria R30.0 [facility] [id number] [place] [address] 37387- 2924 Jun, [facility] [id number] [place] [address] 41686- 2629 Jun, Urinary tract infection, site not specified N39.0 ; Acute vaginitis N76.0 and Diarrhea, unspecified type R19.7 [place] [id number] [place] [address] 93059- 4375 May, [place] [address] [place] [address]- 6108 April, [facility] [id number] [place] [address] [id number] April, Encounter for dental examination Z01.20 [facility] [id number] [place] [address] 69246- 1405 April, [facility] [id number] [place] [address] 75057- 0677 April, Tremor R25.1 and Episodic tension-type headache, not intractable G44.219 [facility] [id number] [place] [address] 79489- 5546 Mar, [facility] [id number] [place] [address] 20717- 6677 Jan, Mood disorder F39 [facility] [id number] [place] [address] 13177 -9176 Jan, [facility] [id number] [place] [address] 74536- 2498 Jan, [facility] [id number] [place] [address] 80682- 7307 Jan, [facility] [id number] [place] [address] 85502- 0429 Jan, [facility] [id number] [place] [address] 71472- 2971 Jan, [facility] [id number] [place] [address] 95257- 1681 Jan, [facility] [id number] [place] [address] 00178 -2765 Dec, Acute diarrhea R19.7 [facility] [id number] [place] [address] 88553- 9552 Dec, [facility] [id number] [place] [address] 00451- 9888 Dec, [facility] [address] [place] [address] 80473- 2446 Dec, [facility] [id number] [place] [address] 84315 -9520 Dec, N&V (nausea and vomiting) R11.2 [facility] [id number] [place] [address] 47736- 7502 Dec, Generalized anxiety disorder F41.1 [facility] [id number] [place] [address] 38128- 9489 Dec, Generalized anxiety disorder F41.1 [facility] [address] 72782- 5815 Nov, Post concussion syndrome F07.81 [facility] [id number] [place] [address] 63593- 8671 Nov, Generalized anxiety disorder F41.1 [facility] [id number] [place] [address] 98969- 2598 Nov, [facility] [address] 76266- 1285 Nov, Generalized anxiety disorder F41.1 [facility] [id number] [place] [address] [id number] Oct, Dental caries K02.9 [facility] [address] 15069- 8846 Oct, [facility] [id number] [place] [address] [id number] Oct, Dental examination Z01.20 [facility] [address] [id number] Oct, Encounter for dental examination Z01.20 [facility] [id number] [place] [address] 76404- 0875 09 Oct, 2015 CAD (coronary artery disease) I25.10 [facility] [id number] [place] [address] 05611- 3453 Sep, Generalized anxiety disorder F41.1 [facility] [address] 06425- 8265 Sep, [facility] [address] 76321- 6399 Sep, Rash and other nonspecific skin eruption R21 and Yeast vaginitis B37.3 [facility] [address] 86639- 1149 Sep, Generalized anxiety disorder F41.1 [facility] [address] 34754- 8079 Aug, Insect bites 919.4 and Hemorrhoids 455.6 [facility] [address] 71069- 5292 Aug, Generalized anxiety disorder 300.02 [facility] [address] 47383- 9453 Aug, [facility] [address] 50095- 8676 Aug, [facility] [id number] [place] [address] 81573- 4746 Aug, Generalized anxiety disorder 300.02 ; No condition on Mckinney II V71.09 ; Heart problem 429.9 and Hypertension 401.9 [facility] [id number] [place] [address] 89986- 2667 Aug, [facility] [id number] [place] [address] 64952- 3819 Jul, [facility] [address] 70481- 6232 Jul, [facility] [id number] [place] [address] 49678- 1959 Jul, [facility] [address] [place] [address]- 7024 Jul, [facility] [address] [place] [address] 82146- 7823 Jul, Rash 782.1 [facility] [id number] [place] [address] 11536- 7344 Jul, UTI (urinary tract infection) 599.0 [facility] [id number] [place] [address] 22886- 4009 Jul, [facility] [id number] [place] [address] 18631- 2475 Jun, Dysthymia 300.4 and Anxiety 300.00 [facility] [id number] [place] [address] 83166- 8373 Jun, 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 [facility] [id number] [place] [address] 26337- 3090 May, [facility] [address] [place] [address] 08445- 8904 May, [facility] [id number] [place] [address] 71716- 4989 May, Unspecified breast screening V76.10 [facility] [address] [place] [address] [id number] May, Dental examination V72.2 [facility] [address] [address]- 1648 April, [facility] [address] [address]- 0182 April, [facility] [id number] [place] [address] [id number] April, Dental examination V72.2 [facility] [address] [place] [id number] April, Dental examination V72.2 [facility] [id number] [place] [address]- 3988 14 Mar, 2015 [facility] [place] [facility] [address] [id number] [place] [address]- 5682 13 Mar, 2015 [facility] [place] [facility] [address] [id number] [place] [address]- 7052 25 Jan, 2015 [facility] [place] [facility] [address] [id number] [place] [address]- 1996 25 Jan, 2015 [facility] [place] [facility] [address] [id number] [place] [address]- 0213 18 Jan, 2015 [facility] [place] [facility] [address] [id number] [place] [address]- 5759 18 Jan, 2015 [facility] [place] [facility] [address] [id number] [place] [address]- 1410 16 Jan, 2015 [facility] [place] [facility] [address] [id number] [place] [address]- 4108 16 Jan, 2015 [facility] [place] [facility] [address] [id number] [place] [address]- 5118 13 Jan, 2015 [facility] [place] [facility] [address] [id number] [place] [address]- 8975 13 Jan, 2015 [facility] [place] [facility] [address] [id number] [place] [address]- 4277 11 Jan, 2015 [facility] [place] [facility] [address] [id number] [place] [address]- 7917 11 Jan, 2015 [facility] [place] [facility] [address] [id number] [place] [address]- 8145 11 Jan, 2015 [facility] [place] [facility] [address] [id number] [place] [address]- 7963 11 Jan, 2015 [facility] [place] [facility] [address] [id number] [place] [address]- 6319 09 Jan, 2015 [facility] [place] [facility] [address] [id number] [place] [address]- 3220 09 Jan, 2015 [facility] [place] [facility] [address] [id number] [place] [address]- 7421 Jan, 2014 [facility] [place] [facility] [address] [id number] [place] [address]- 3756 Jan, 2014 [facility] [place] [facility] [address] [id number] [place] [address]- 0946 Jan, 2014 [facility] [place] [facility] [address] [id number] [place] [address] Jan, 2014 [facility] [place] [facility] [address] [id number] [place] [address] Jan, [facility] [place] [facility] [address] [id number] [place] [address] Jan, 2014 [facility] [place] [facility] [address] [id number] [place] [address] Jan, [facility] [place] [facility] [address] [id number] [place] [address] Jan, [facility] [place] [facility] [address] [id number] [place] [address] Dec, [facility] [place] [facility] [address] [id number] [place] [address] Dec, [facility] [place] [facility] [address] [id number] [place] [address] Dec, [facility] [place] [facility] [address] [id number] [place] [address] Dec, [facility] [place] [facility] [address] [id number] [place] [address] Nov, [facility] [place] [facility] [address] [id number] [place] [address] Nov, [facility] [place] [facility] [address] [id number] [place] [address] Nov, [facility] [place] [facility] [address] [id number] [place] [address] 15 Nov, 2014 [facility] [place] [facility] [address] [id number] [place] [address] Nov, [facility] [place] [facility] [address] [id number] [place] [address] Nov, [facility] [place] [facility] [address] [id number] [place] [address] Nov, [facility] [place] [facility] [address] [id number] [place] [address] Oct, [facility] [place] [facility] [address] [id number] [place] [address] Oct, [facility] [place] [facility] [address] [id number] [place] [address] Oct, [facility] [place] [facility] [address] [id number] [place] [address] Oct, [facility] [place] [facility] [address] [id number] [place] [address] Oct, [facility] [place] [facility] [address] [id number] [place] [address] Oct, [facility] [place] [facility] [address] [id number] [place] [address] Oct, [facility] [place] [facility] [address] [id number] [place] [address] Oct, [facility] [place] [facility] [address] [id number] [place] [address] Oct, [facility] [place] [facility] [address] [id number] [place] [address] Oct, [facility] [place] [facility] [address] [id number] [place] [address]27 Oct, [facility] [place] [facility] [address] [id number] [place] [address]104 Oct, [facility] [place] [facility] [address] [id number] [place] [address] 33[address] Sep, [facility] [place] [facility] [address] [id number] [place] [address] Sep, [facility] [place] [facility] [address] [id number] [place] [address] 7516 Sep, [facility] [place] [facility] [address] [id number] [place] [address] 2412 Sep, [facility] [place] [facility] [address] [id number] [place] [address] Jul, [facility] [place] [facility] [address] [id number] [place] [address] 9050 Jul, [facility] [place] [facility] [address] [id number] [place] [address] 3010 Jul, [facility] [place] [facility] [address] [id number] [place] [address] 5910 Jul, [facility] [place] [facility] [address] [id number] [place] [address] 4655 Jun, [facility] [place] [facility] [address] [id number] [place] [address]- 7345 Jun, [facility] [place] [facility] [address] [id number] [place] [address]- 4613 Jun, [facility] [place] [facility] [address] [id number] [place] [address]- [address]123 Jun, [facility] [place] [facility] [address] [id number] [place] [address]- 4118 May, [facility] [place] [facility] [address] [id number] [place] [address]- 5716 May, [facility] [place] [facility] [address] [id number] [place] [address] 7289 April, [facility] [place] [facility] [address] [id number] [place] [address]- 2976 April, [facility] [place] [facility] [address] [id number] [place] [address] April, [facility] [place] [facility] [address] [id number] [place] [address]- 1814 April, [facility] [place] [facility] [address] [id number] [place] [address]- 2769 April, [facility] [place] [facility] [address] [id number] [place] [address]- 7724 April, [facility] [place] [facility] [address] [id number] [place] [address]- 0634 April, [facility] [place] [facility] [address] [id number] [place] [address] April, [facility] [place] [facility] [address] [id number] [place] [address]- 0295 April, [facility] [place] [facility] [address] [id number] [place] [address]- 2423 Mar, [facility] [place] [facility] [address] [id number] [place] [address]- 6028 Mar, [facility] [place] [facility] [address] [id number] [place] [address]- 8356 Mar, [facility] [place] [facility] [address] [id number] [place] [address]- 1757 Mar, [facility] [place] [facility] [address] [id number] [place] [address]- 2791 Jan, [facility] [place] [facility] [address] [id number] [place] [address]- 8036 Jan, [facility] [place] [facility] [address] [id number] [place] [address]- 9708 Jan, [facility] [place] [facility] [address] [id number] [place] [address]- 2374 Jan, [facility] [place] [facility] [address] [id number] [place] [address]- 5520 10 Jan, 2014 [facility] [place] [facility] [address] [id number] [place] [address]- 3344 10 Jan, 2014 [facility] [place] [facility] [address] [id number] [place] [address]- 5466 07 Jan, 2014 [facility] [place] [facility] [address] [id number] [place] [address]- 2716 Jan, [facility] [place] [facility] [address] [id number] [place] [address]- 2642 Jan, [facility] [place] [facility] [address] [id number] [place] [address]- 0271 Jan, [facility] [place] [facility] [address] [id number] [place] [address]- 0251 Jan, [facility] [place] [facility] [address] [id number] [place] [address]- 5777 Jan, [facility] [place] [facility] [address] [id number] [place] [address]- 1099 Dec, [facility] [place] [facility] [address] [id number] [place] [address]- 6040 Dec, [facility] [place] [facility] [address] [facility] [id number] [place] [address]- 6912 Dec, [facility] [place] [facility] [address] [id number] [place] [address]- 1223 Dec, [facility] [place] [facility] [address] [id number] [place] [address] 3232 Nov, [facility] [place] [facility] [address] [id number] [place] [address] Nov, [facility] [place] [facility] [address] [id number] [place] [address] 2546 Nov, [facility] [place] [facility] [address] [id number] [place] [address]- 1012 Nov, [facility] [place] [facility] [address] [id number] [place] [address]- 1598 Oct, [facility] [place] [facility] [address] [id number] [place] [address]- 3054 Oct, [facility] [place] [facility] [address] [id number] [place] [address]- 6705 Sep, [facility] [place] [facility] [address] [id number] [place] [address]- 9997 Sep, [facility] [place] [facility] [address] [id number] [place] [address] 3004 Jul, [facility] [place] [facility] [address] [id number] [place] [address]- 6887 Jul, [facility] [place] [facility] [address] [id number] [place] [address]- 6789 Jun, [facility] [place] [facility] [address] [id number] [place] [address]- 3062 Jun, [facility] [place] [facility] [address] [id number] [place] [address]- 1545 Jun, [facility] [place] [facility] [address] [id number] [place] [address]- 0761 May, [facility] [place] [facility] [address] [id number] [place] [address]- 9093 May, [facility] [place] [facility] [address] [id number] [address]- 9998 May, [facility] [place] [facility] [address] [id number] [place] [address]- 9845 May, [facility] [place] [facility] [address] [id number] [place] [address] 1991 May, [facility] [place] [facility] [address] [id number] [place] [address]- 7110 April, [facility] [place] [facility] [address] [id number] [place] [address]- 9399 April, [facility] [address] [id number] [place] [address]- 2928 April, [facility] [address] [id number] [place] [address]- 4197 April, [facility] [address] [id number] [place] [address]- 6401 April, [facility] [address] [id number] [place] [address]- 7361 April, [facility] [address] [id number] [place] [address]- 8889 Mar, [facility] [address] [id number] [place] [address]- 2066 Mar, [facility] [address] [id number] [place] [address]- 3850 Jan, [facility] [address] [id number] [place] [address]- 2257 Jan, [facility] [address] [id number] [place] [address]- 3578 Jan, [facility] [address] [facility] [id number] [place] [address]- 2361 Jan, [facility] [place] [facility] [address] [id number] [place] [address]- 4637 Jan, [facility] [place] [facility] [address] [id number] [place] [address]- 7740 Jan, [facility] [place] [facility] [address] [id number] [place] [address]- 6162 Jan, [facility] [place] [facility] [address] [id number] [place] [address]- 7617 Jan, [facility] [place] [facility] [address] [id number] [place] [address]- 9911 Jan, [facility] [address] [id number] [place] [address]- 6536 Jan, [facility] [address] [id number] [place] [address]- 9366 Jan, [facility] [address] [id number] [place] [address]- 5566 Dec, [facility] [address] [id number] [place] [address]- 6376 Nov, [facility] [address] [id number] [place] [address]- 9746 Nov, [facility] [address] [id number] [place] [address]- 7766 Nov, [facility] [address] [id number] [place] [address]- 2516 Nov, [facility] [address] [id number] [place] [address]- 4904 Nov, [facility] [address] [id number] [place] [address]- 0140 Nov, [facility] [address] [id number] [place] [address]- 4266 Nov, [facility] [address] [id number] [place] [address]- 6456 Nov, [facility] [place] [facility] [address] [id number] [address]- 8326 Nov, [facility] [place] [facility] [address] [id number] [place] [address]- 6726 Nov, [facility] [place] [facility] [address] [id number] [place] [address]- 4716 Nov, [facility] [place] [facility] [address] [id number] [place] [address]- 9652 Nov, [facility] [place] [facility] [address] [id number] [place] [address]- 8959 Nov, [facility] [place] [facility] [address] [id number] [place] [address]- 4530 Oct, [facility] [place] [facility] [address] [id number] [place] [address]- 3896 Oct, [facility] [place] [facility] [address] [facility] [id number] [place] [address] 2546 Oct, [facility] [place] [facility] [address] [id number] [place] [address]- 9584 Sep, [facility] [place] [facility] [address] [id number] [place] [address]- 3576 Sep, [facility] [place] [facility] [address] [id number] [place] [address]- 5976 Sep, [facility] [place] [facility] [address] [facility] [id number] [place] [address]- 2940 Sep, [facility] [place] [facility] [address] [id number] [place] [address]- 6096 Aug, [facility] [place] [facility] [address] [id number] [place] [address]- 3973 20 Aug, 2012 [facility] [place] [facility] [address] [facility] [id number] [place] [address]- 6944 24 Jul, 2012 [facility] [place] [facility] [address] [id number] [place] [address]- 3703 May, [facility] [place] [facility] [address] [id number] [place] [address]- 4657 May, [facility] [place] [facility] [address] [id number] [place] [address]- 3659 May, [facility] [place] [facility] [address] [facility] [id number] [place] [address]- 7146 April, [facility] [place] [facility] [address] [facility] [id number] [place] [address]- 0107 Mar, [facility] [place] [facility] [address] [id number] [place] [address]- 7178 Mar, [facility] [place] [facility] [address] [id number] [place] [address]- 5994 Mar, [facility] [place] [facility] [address] [id number] [place] [address]- 0537 Jan, [facility] [place] [facility] [address] [id number] [place] [address]- 2577 Jan, [facility] [place] [facility] [address] [id number] [place] [address]- 9039 Jan, [facility] [place] [facility] [address] [id number] [place] [address]- 7614 Dec, [facility] [place] [facility] [address] [id number] [place] [address]- 3536 Dec, [facility] [place] [facility] [address] [id number] [place] [address]- 6845 Dec, [facility] [place] [facility] [address] [id number] [place] [address]- 4680 Dec, [facility] [place] [facility] [address] [id number] [place] [address]- 5086 Nov, [facility] [place] [facility] [address] [id number] [place] [address]- 1424 Nov, [facility] [place] [facility] [address] [id number] [place] [address]- 8372 Nov, [facility] [place] [facility] [address] [id number] [place] [address]- 6573 Oct, [facility] [place] [facility] [address] [id number] [place] [address]- 8275 Sep, [facility] [place] [facility] [address] [id number] [place] [address]- 3626 Sep, [facility] [place] [facility] [address] [id number] [place] [address]- 0623 13 Sep, 2011 [facility] [place] [facility] [address] [id number] [place] [address]- 6263 15 Nov, 2010 [facility] [place] [facility] [address] [id number] [place] [address]- 8176 23 Oct, 2010 [facility] [place] [facility] [address] [facility] [id number] [place] [address]- 1536 19 Oct, 2010 [facility] [place] [facility] [address] [id number] [place] [address]- 8917 18 Oct, 2010 [facility] [place] [facility] [address] [id number] [place] [address]- 1201 16 Oct, 2010 [facility] [place] [facility] [address] [id number] [place] [address]- 0944 Sep, [facility] [place] [facility] [address] [id number] [place] [address]- 6345 April, [facility] [place] [facility] [address] [id number] [place] [address]- 3220 29 Nov, 2009 [facility] [place] [facility] [address] [id number] [place] [address]- 9076 24 Nov, 2009 [facility] [place] [facility] [address] [id number] [place] [address]- 3074 22 Nov, 2009 [facility] [place] [facility] [address] [id number] [place] [address]- 8729 10 Nov, 2009 [facility] [place] [facility] [address] [id number] [address]- 2114 10 Nov, 2009 [facility] [place] [facility] [address] [id number] [place] [address]- 7982 19 Oct, 2009 [facility] [place] [facility] [address] [facility] [id number] [address]- 9234 02 Oct, 2009 [facility] [place] [facility] [address] [id number] [place] [address]- 8050 13 Sep, 2009 [facility] [place] [facility] [address] [facility] [id number] [place] [address]- 0296 13 Jan, 2009 IMMUNIZATIONS No Known Immunizations SOCIAL HISTORY Never Assessed REASON FOR VISIT Assisted PLAN OF CARE Activity Details Follow Up prn Reason: VITAL SIGNS MEDICATIONS Unknown Medications RESULTS No Results PROCEDURES Procedure Date Ordered Result Body Site Minor complication (15 mins) Jan 23, 2018 INSTRUCTIONS MEDICATIONS ADMINISTERED No Known Medications [...] History Intertrechanteric hip fx 04/27/16 Hospitalization History [facility] (inpatient [facility] 2 times) Hx of 3 inpatient psych treatments in past in [place] oct 2016 [facility]
--- OUTSIDE RECORDS SUMMARY | 2018-08-20 13:09 | XMS REPORT ---
Author Author LALA PEÑA Organization [facility] Address [address] [place] [address] Care Team Providers Care Human Resources Leader Name Role Phone MATEUSGUDELIA LALA Unavailable PROBLEMS Type Condition ICD9-CM Code ABH66-GA Code Onset Dates Condition Status SNOMED Code Problem Sundowning F05 Active 032165420 Problem Constipation, unspecified constipation type K59.00 Active 53115064 Problem Reactive depression F32.9 Active 79247203 Problem Vascular dementia with behavior disturbance F01.51 Active 002723248508504 Problem Insomnia, unspecified type G47.00 Active 638200142 Problem Generalized anxiety disorder F41.1 Active 92421026 Problem Other chronic pain G89.29 Active 33642876 Problem Severe episode of recurrent major depressive disorder, without psychotic features F33.2 Active 88425730 Problem Slow transit constipation K59.01 Active 46867032 Problem 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 Active 086018012 Problem Obsessive thinking F42.8 Active 48532324 Problem Failure to thrive in adult R62.7 Active 475351799 Problem Dysthymic disorder F34.1 Active 46542994 Problem Hypertension I10 Active 64655028 Problem Mood disorder F39 Active 59321989 Problem Irritable bowel syndrome with diarrhea K58.0 Active 755739671 Problem Oropharyngeal dysphagia R13.12 Active 56356038 Problem 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 Active 33842138 Problem Other chronic pain G89.29 Active 39695646 Problem Primary insomnia F51.01 Active 5098364 Problem Poor appetite R63.0 Active 84996717 Problem Atherosclerotic heart disease of [place] 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 Active 617625623275569 Problem Iron deficiency anemia secondary to inadequate dietary iron intake D50.8 Active 768244893 Problem Coarse tremors G25.2 Active 11422389 Problem Gastroesophageal reflux disease without esophagitis K21.9 Active 615518004 Problem Essential hypertension I10 Active 55789054 ALLERGIES Substance Reaction Event Type Date Status Morphine Sulfate Unknown Drug Allergy Dec, Active Clindamycin HCl Unknown Drug Allergy Dec, Active ENCOUNTERS Encounter Location Date Diagnosis [facility] [id number] [place] [address] 40696- 0290 May, [facility] [address] [id number] May, [facility] [id number] [place] [address] 10538- 7305 May, [facility] [id number] [place] [address] 99184- 3588 April, [facility] [address] [id number] April, Generalized anxiety disorder F41.1 ; Obsessive thinking F42.8 and Insomnia , unspecified type G47.00 [place] [facility] [id number] [place] [address] 68974- 6102 April, [facility] [id number] [place] [address] 20372- 0172 April, Rash of face R21 [facility] [id number] [place] [address] 61776- 5131 Mar, [facility] [id number] [place] [address] 23838- 2963 Mar, [facility] [id number] [place] [address] 81517- 49[address] Mar, [facility] [id number] [place] [address] 24460- 1550 Jan, [facility] [id number] [place] [address] 50178- 8208 Jan, [facility] [address] [id number] Jan, Constipation, unspecified constipation type K59.00 and Other chronic pain G89.29 [facility] [id number] [place] [address] 01297- 4606 Jan, [facility] [place] [address] [place] [id number] Jan, Obsessive thinking F42.8 and Coarse tremors G25.2 [facility] [id number] [place] [address] [id number] Jan, [facility] [id number] [place] [address] [id number] Jan, [facility] [place] [address] [place] [id number] Jan, Generalized anxiety disorder F41.1 ; Obsessive thinking F42.8 ; Callus of foot L84 and 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 [place] [id number] [place] [address] 56220- 6229 Dec, Generalized anxiety disorder F41.1 and Severe episode of recurrent major depressive disorder, without psychotic features F33.2 [facility] [facility] [id number] [place] [address] 48138- 4951 Nov, [facility] [id number] [place] [address] 00080- 4339 Nov, [facility] [place] [address] [place] [id number] Nov, Oropharyngeal dysphagia R13.12 ; Generalized anxiety disorder F41.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 [facility] [id number] [place] [address] 15809- 4987 Nov, [facility] [id number] [place] [address] [id number] Nov, [facility] [id number] [place] [address] 68759- 3023 Nov, [facility] [id number] [place] [address] 67462- 6668 Nov, [facility] [id number] [place] [address] 78490- 7394 Oct, Constipation, unspecified constipation type K59.[address] [facility] [id number] [address] 7885 Oct, [facility] [id number] [id number] Sep, [facility] [id number] [id number] Sep, [facility] [id number] [place] [address] [id number] Sep, [facility] [id number] [id number] Sep, [facility] [id number] Sep, Generalized abdominal pain R10.84 [facility] [address] [address] 0702 Sep, [facility] [id number] [place] [address] [id number] Sep, Generalized anxiety disorder F41.1 and Primary insomnia F51.01 [facility] [id number] [id number] Aug, [facility] [id number] [id number] Aug, Generalized anxiety disorder F41.1 [facility] [address] [id number] [address]- 7980 Jul, [facility] [place] [address] [place] [id number] Jul, Obsessive thinking F42.8 [facility] [address] [address] 9756 Jul, Generalized anxiety disorder F41.1 and Irritable bowel syndrome with diarrhea K58.0 [facility] [id number] [id number] Jul, Generalized anxiety disorder F41.1 [facility] [address] [id number] [id number] Jun, Generalized anxiety disorder F41.1 [facility] [id number] [place] [address] 12440- 4648 May, [facility] [address] [place] [id number] May, Generalized anxiety disorder F41.1 ; Irritable bowel syndrome with diarrhea K58.0 and Coarse tremors G25.2 [facility] [address], [place] [address] 4089 April, [facility] [id number] [place] [address] 35067- 2961 April, [facility] [id number] [place] [address] 10446- [address] April, [facility] [id number] [place] [address] 13169- 2573 Mar, [facility] [place] [address] [place] [id number] Mar, Severe episode of recurrent major depressive disorder, without psychotic features F33.2 and Pain in left hip M25.552 [facility] [address] [place] [address] 03313- 9718 Mar, [facility] [address]100[place], [place] [address]- 6153 Mar, [facility] [id number] [place] [address] 16686- 3647 Mar, [facility] [id number] [place] [address] 51548- 6087 Mar, Pain in right hip M25.551 and Self-care deficit in patient living alone R46.89 [facility] [address], [place] [address] Jan, Other chronic pain G89.29 ; Pain in left hip M25.552 and Slow transit constipation K59.01 [facility] [id number] [place] [address] 32277- 0539 Jan, [place] [address] 65758- 6348 Dec, Other depression F32.89 ; Constipation, unspecified constipation type K59.00 and Insomnia, unspecified type G47.00 [place] [facility] [address] 75355- 0963 Nov, Reactive depression F32.9 ; Chronic idiopathic constipation K59.04 ; Generalized anxiety disorder F41.1 ; Coarse tremors G25.2 ; Gastroesophageal reflux disease without esophagitis K21.9 ; Dysthymic disorder F34.1 ; Vitamin deficiency, unspecified E56.9 and Primary insomnia F51.01 [place] [address] 62854- 8538 Nov, [address] 99306- 4667 Nov, [facility] [facility] [address] 16889- 5206 Nov, [address] 77952- 4313 Nov, Reactive depression F32.9 ; Essential hypertension I10 ; Generalized anxiety disorder F41.1 ; Atherosclerotic heart disease of [place] 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 ; Pain in right hip M25.551 ; Other chronic pain G89.29 ; Chronic idiopathic constipation K59.04 ; Primary insomnia F51.01 ; Coarse tremors G25.2 ; Gastroesophageal reflux disease without esophagitis K21.9 ; Iron deficiency anemia secondary to inadequate dietary iron intake D50.8 and Vitamin deficiency, unspecified E56.9 [address] [id number] [place] [address] 12057- 3488 Oct, [facility] [id number] [place] [address] 88112- 8258 Oct, [place] [id number] [place] [address] 58105- 9720 18 Oct, 2016 [facility] [id number] [place] [address] 83283- 2839 16 Oct, 2016 Generalized anxiety disorder F41.1 ; Poor appetite R63.0 ; Dehydration E86.0 and Failure to thrive in adult R62.7 [facility] [address] 60837- 1819 07 Oct, 2016 Generalized anxiety disorder F41.1 and Failure to thrive in adult R62.7 [facility] [id number] [place] [address] 72041- 5680 Oct, [facility] [id number] [place] [address] 00678- 8767 Oct, [facility] [id number] [place] [address] 58022 -4166 Sep, Vaginal discharge N89.8 and Acute cystitis with hematuria N30.01 [facility] [id number] [place] [address] 16200- 7378 Sep, [facility] [id number] [place] [address] 09207- 3949 Sep, [facility] [id number] [place] [address] 43643- 0441 Sep, Dysthymic disorder F34.1 ; Acute vaginitis N76.0 ; Dysuria R30.0 and Vaginal yeast infection B37.3 [facility] [id number] [place] [address] 14522- 4786 Aug, [facility] [id number] [place] [address] 44328- 1740 13 Aug, 2016 [facility] [id number] [place] [address] 09429 -6486 02 Aug, 2016 Foul smelling urine R82.90 ; Rapid heart rate R00.0 and Flatulence R14.3 [place] [id number] [place] [address] 27875- 1474 Aug, [place] [address] 48479- 7438 Jul, Constipation, unspecified constipation type K59.00 ; Weak R53.1 ; Poor appetite R63.0 ; Coronary artery disease involving [place] heart without angina pectoris, unspecified vessel or lesion type I25.10 ; Fatigue, unspecified type R53.83 ; Urinary incontinence, unspecified type R32 and Insomnia, unspecified type G47.00 [place] [address] 58274- 8689 Jul, [place] [address] 24303- 4618 Jun, Dysuria R30.0 [place] [address] 75028- 3988 Jun, [facility] [id number] [place] [address] 77463- 6831 Jun, Urinary tract infection, site not specified N39.0 ; Acute vaginitis N76.0 and Diarrhea, unspecified type R19.7 [place] [id number] [place] [address] 40328- 5768 May, [place] [id number] [place] [address] 54628- 5686 April, [facility] [id number] [place] [address] [id number] April, Encounter for dental examination Z01.20 [place] [address] 53267- 2124 April, [place] [id number] [place] [address] 08300- 2084 April, Tremor R25.1 and Episodic tension-type headache, not intractable G44.219 [place] [address] [place] [address]- 1710 08 Mar, 2016 [facility] [id number] [place] [address] 19234- 0153 Jan, Mood disorder F39 [facility] [address], [place] [address] Jan, [facility] [id number] [place] [address] 15798- [address]164 Jan, [facility] [id number] [place] [address] 14929- 6413 Jan, [facility] [id number] [place] [address] 60049- 1547 Jan, [facility] [id number] [place] [address] 75367- 6999 Jan, [facility] [id number] [place] [address] 38218- 9790 Jan, [facility] [id number] [place] [address] 29384 -4465 Dec, Acute diarrhea R19.7 [facility] [id number] [place] [address] 75797- 1207 Dec, [facility] [id number] [place] [address] 31178- 4610 Dec, [facility] [id number] [place] [address] 97703- 9606 Dec, [facility] [address], [place] [address] -9909 Dec, N&V (nausea and vomiting) R11.2 [facility] [id number] [place] [address] 07974- 7533 Dec, Generalized anxiety disorder F41.1 [facility] [id number] [place] [address] 70984- 6927 Dec, Generalized anxiety disorder F41.1 [facility] [address], [place] [address]- 0783 Nov, Post concussion syndrome F07.81 [facility] [id number] [place] [address] 482473- 2582 Nov, Generalized anxiety disorder F41.1 [facility] [id number] [place] [address] 11499- 5862 Nov, [facility] [id number] [place] [address] 62019- 8726 Nov, Generalized anxiety disorder F41.1 [facility] [id number] [place] [address] [id number] Oct, Dental caries K02.9 [facility] [id number] [place] [address] 94375- 5184 Oct, [facility] [id number] [place] [address] [id number] Oct, Dental examination Z01.20 [facility] [id number] [place] [address] [id number] Oct, Encounter for dental examination Z01.20 [facility] [id number] [place] [address] 50506- 3121 Oct, CAD (coronary artery disease) I25.10 [facility] [id number] [place] [address] 04238- 8653 Sep, Generalized anxiety disorder F41.1 [facility] [address] [place] [address] 60334- 9594 Sep, [facility] [id number] [place] [address] 70569- 7722 Sep, Rash and other nonspecific skin eruption R21 and Yeast vaginitis B37.3 [facility] [id number] [place] [address] 65673- 7311 Sep, Generalized anxiety disorder F41.1 [facility] [address] [place] [address] 46349- 7905 Aug, Insect bites 919.[address] [facility] [id number] [place] [address] 67389- 5439 Aug, Generalized anxiety disorder 300.02 [facility] [id number] [place] [address] 96635- 3124 [address], [address] [facility] [id number] [place] [address] 97313- 2558 Aug, [facility] [id number] [place] [address] 94580- 9835 Aug, Generalized anxiety disorder 300.02 ; No condition on [place] II V71.09 ; Heart problem 429.[address] [facility] [id number] [place] [address] 46528- 5675 Aug, [facility] [id number] [place] [address] 77007- 3318 Jul, [facility] [id number] [place] [address] 20591- 0590 Jul, [facility] [id number] [place] [address] 24712- 8052 Jul, [facility] [id number] [place] [address] 68095- 3801 Jul, [facility] [id number] [place] [address] 23857- 1046 Jul, Rash 782.1 [facility] [id number] [place] [address] 18123- 8479 Jul, UTI (urinary tract infection) 599.0 [facility] [id number] [place] [address] 79105- 5812 Jul, [facility] [id number] [place] [address] 18020- 8766 Jun, Dysthymia 300.[address] 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 [address], [place] [address] 2546 May, [facility] [id number] [place] [address] 19332- 8936 May, [facility] [id number], [place] [address] 2546 May, Unspecified breast screening V76.10 [facility] [id number] [place] [address] [phone] May, Dental examination V72.2 [facility] [id number] [place] [address] 11481- 9796 April, [facility] [id number] [place] [address] 48665- 3246 April, [facility] [id number] [place] [address] [id number] April, Dental examination V72.2 [facility] [id number] [place] [address] [id number] April, Dental examination V72.2 [facility] [address], [place] [address]- 5956 Mar, [facility] [address] [address] 2546 Mar, [facility] [address] [address] 2546 Jan, [facility] [address] [address] 2546 Jan, [facility] [address], [place] [address] 2546 Jan, [facility] [address] [id number] [address]- 4195 18 Jan, 2014 [facility] [place] [facility] [address] [id number] [place] [address]- 8668 16 Jan, 2014 [facility] [place] [facility] [address] [id number] [place] [address]- 2136 16 Jan, 2014 [facility] [place] [facility] [address] [id number] [place] [address]- 2633 13 Jan, 2014 [facility] [place] [facility] [address] [id number] [place] [address]- 1812 13 Jan, 2014 [facility] [place] [facility] [address] [id number] [place] [address]- 7932 11 Jan, 2014 [facility] [place] [facility] [address] [id number] [place] [address]- 0266 11 Jan, 2014 [facility] [place] [facility] [address] [id number] [place] [address]- 3569 11 Jan, 2014 [facility] [place] [facility] [address] [id number] [place] [address]- 1957 11 Jan, 2015 [facility] [place] [facility] [address] [id number] [place] [address]- 1270 09 Jan, 2014 [facility] [place] [facility] [address] [id number] [place] [address] 09 Jan, 2015 [facility] [place] [facility] [address] [id number] [place] [address] 23 Jan, 2014 [facility] [place] [facility] [address] [id number] [place] [address] 23 Jan, 2014 [facility] [place] [facility] [address] [id number] [place] [address] 10 Jan, 2014 [facility] [place] [facility] [address] [id number] [place] [address] 10 Jan, 2014 [facility] [place] [facility] [address] [id number] [place] [address] Jan, [facility] [place] [facility] [address] [id number] [place] [address] Jan, [facility] [place] [facility] [address] [id number] [place] [address] Jan, [facility] [place] [facility] [address] [id number] [place] [address] Jan, [facility] [place] [facility] [address] [id number] [place] [address] Dec, [facility] [place] [facility] [address] [id number] [place] [address] Dec, [facility] [place] [facility] [address] [id number] [place] [address] Dec, [facility] [place] [facility] [address] [id number] [place] [address] Dec, [facility] [place] [facility] [address] [id number] [place] [address] Nov, [facility] [place] [facility] [address] [id number] [place] [address] Nov, [facility] [place] [facility] [address] [id number] [place] [address] Nov, [facility] [place] [facility] [address] [id number], [place] [address] Nov, [facility] [place] [facility] [address] [id number], [place] [address] Nov, [facility] [place] [facility] [address] [id number] [place] [address] Nov, [facility] [place] [facility] [address] [id number] [place] [address] Nov, [facility] [place] [facility] [address] [id number] [place] [address] Oct, [facility] [place] [facility] [address] [id number] [place] [address] Oct, [facility] [place] [facility] [address] [id number] [place] [address] Oct, [facility] [place] [facility] [address] [id number] [place] [address] Oct, [facility] [place] [facility] [address] [id number] [place] [address] Oct, [facility] [place] [facility] [address] [id number] [place] [address]697 Oct, [facility] [place] [facility] [address] [id number] [place] [address] Oct, [facility] [place] [facility] [address] [id number] [place] [address]- [address] Oct, [facility] [place] [facility] [address] [id number] [place] [address] Oct, [facility] [place] [facility] [address] [id number] [place] [address] Oct, [facility] [place] [facility] [address] [id number] [place] [address] Oct, [facility] [place] [facility] [address] [id number] [place] [address] Oct, [facility] [place] [facility] [address] [id number] [place] [address] Sep, [facility] [place] [facility] [address] [id number] [place] [address] Sep, [facility] [place] [facility] [address] [id number] [place] [address] Sep, [facility] [place] [facility] [address] [id number] [place] [address] Sep, [facility] [place] [facility] [address] [id number] [place] [address] Jul, [facility] [place] [facility] [address] [id number] [place] [address] Jul, [facility] [place] [facility] [address] [id number] [place] [address] Jul, [facility] [place] [facility] [address] [id number] [place] [address] Jul, [facility] [place] [facility] [address] [id number] [place] [address] Jun, [facility] [place] [facility] [address] [id number] [place] [address] Jun, [facility] [place] [facility] [address] [id number] [place] [address] 47[address] Jun, [facility] [place] [facility] [address] [id number] [place] [address] 5[address] Jun, [facility] [place] [facility] [address] [id number] [place] [address]- 7557 May, [facility] [place] [facility] [address] [id number] [place] [address]- 2412 May, [facility] [place] [facility] [address] [id number] [place] [address]- 7[address] April, [facility] [place] [facility] [address] [id number] [place] [address] 1064 April, [facility] [place] [facility] [address] [id number] [place] [address] 9077 April, [facility] [place] [facility] [address] [id number] [place] [address]- 6878 April, [facility] [place] [facility] [address] [id number] [place] [address]- 4161 April, [facility] [place] [facility] [address] [id number] [place] [address]- 7755 April, [facility] [place] [facility] [address] [id number] [place] [address]- 0967 April, [facility] [place] [facility] [address] [id number] [place] [address]- [address] April, [facility] [place] [facility] [address] [id number] [place] [address]- 9842 April, [facility] [place] [facility] [address] [id number] [place] [address]- 6413 Mar, [facility] [place] [facility] [address] [id number] [place] [address] 2736 Mar, [facility] [place] [facility] [address] [id number] [place] [address]- [address]234 Mar, [facility] [place] [facility] [address] [id number] [place] [address]- 1114 Mar, [facility] [place] [facility] [address] [id number] [place] [address] 8196 Jan, [facility] [place] [facility] [address] [id number] [place] [address]- 8220 Jan, [facility] [place] [facility] [address] [id number] [place] [address]- 2484 Jan, [facility] [place] [facility] [address] [id number] [place] [address]- 9145 Jan, [facility] [place] [facility] [address] [id number] [place] [address]- 2268 Jan, [facility] [place] [facility] [address] [id number] [place] [address]- 3743 Jan, [facility] [place] [facility] [address] [id number] [place] [address]- 8788 Jan, [facility] [place] [facility] [address] [id number] [place] [address]- 6843 Jan, [facility] [place] [facility] [address] [id number] [place] [address]- 3778 Jan, [facility] [place] [facility] [address] [id number] [place] [address]- 6551 Jan, [facility] [address] [id number] [place] [address]- 0241 Jan, [facility] [place] [facility] [address] [id number] [place] [address]- 4071 Jan, [facility] [place] [facility] [address] [id number] [place] [address] 7803 Dec, [facility] [address] [id number] [place] [address]- 9273 Dec, [facility] [place] [facility] [address] [id number] [place] [address]- 2303 Dec, [facility] [address] [id number] [place] [address] 6815 Dec, [facility] [address] [id number] [place] [address]- 5364 Nov, [facility] [place] [facility] [address] [id number] [place] [address]- 9923 Nov, [facility] [place] [facility] [address] [id number] [place] [address]- 0516 Nov, [facility] [place] [facility] [address] [id number] [place] [address] 37[address] Nov, [facility] [place] [facility] [address] [id number], [place] [address] Oct, [facility] [place] [facility] [address] [id number] [place] [address]- 9221 Oct, [facility] [place] [facility] [address] [id number] [place] [address]- 3328 Sep, [facility] [place] [facility] [address] [id number] [place] [address]- 2270 Sep, [facility] [place] [facility] [address] [id number] [place] [address]- 9372 Jul, [facility] [address] [id number] [place] [address]- 5175 Jul, [facility] [place] [facility] [address] [id number] [place] [address] Jun, [facility] [place] [facility] [address] [id number] [place] [address]- 9594 Jun, [facility] [place] [facility] [address] [id number] [place] [address]- 5489 Jun, [facility] [place] [facility] [address] [id number] [place] [address]- 3390 May, [facility] [place] [facility] [address] [id number] [place] [address]- 0231 May, [facility] [place] [facility] [address] [id number] [place] [address]- 4556 May, [facility] [place] [facility] [address] [id number] [place] [address]- 0295 May, [facility] [place] [facility] [address] [id number] [place] [address]- 8069 May, [facility] [place] [facility] [address] [id number] [place] [address]- 3613 April, [facility] [place] [facility] [address] [id number] [place] [address]- 5451 April, [facility] [place] [facility] [address] [id number] [place] [address]- 8827 April, [facility] [place] [facility] [address] [id number] [place] [address]- 6244 April, [facility] [place] [facility] [address] [id number] [place] [address]- 5799 April, [facility] [place] [facility] [address] [id number] [place] [address]- 5318 April, [facility] [place] [facility] [address] [id number] [place] [address]- 2094 Mar, [facility] [address] [id number] [place] [address]- 1657 15 Mar, 2013 [facility] [place] [facility] [address] [id number] [place] [address]- 1512 Jan, [facility] [address] [id number] [place] [address]- 1718 Jan, [facility] [address] [id number] [place] [address]- 8975 Jan, [facility] [address] [id number] [place] [address]- 9396 Jan, [facility] [address] [facility] [id number] [place] [address]- 7569 Jan, [facility] [address] [id number] [place] [address]- 9170 Jan, [facility] [address] [id number] [place] [address]- 7712 Jan, [facility] [address] [facility] [id number] [place] [address]- 9051 Jan, [facility] [address] [facility] [id number] [place] [address]- 3539 Jan, [facility] [address] [id number] [place] [address]- 3232 Jan, [facility] [address] [id number] [place] [address]- 8031 Jan, [facility] [place] [facility] [address] [id number] [place] [address]- 0949 Dec, [facility] [place] [facility] [address] [id number] [place] [address]- 3947 Nov, [facility] [address] [id number] [place] [address]- 6158 Nov, [facility] [place] [facility] [address] [id number] [place] [address]- 3896 Nov, [facility] [place] [facility] [address] [id number] [place] [address] Nov, [facility] [place] [facility] [address] [id number] [place] [address]- 1506 Nov, [facility] [place] [facility] [address] [id number] [place] [address]- 6403 Nov, [facility] [place] [facility] [address] [id number] [place] [address]- 0577 Nov, [facility] [place] [facility] [address] [id number] [place] [address]- 6469 Nov, [facility] [place] [facility] [address] [id number] [place] [address]- 8349 Nov, [facility] [place] [facility] [address] [id number] [place] [address]- 9100 Nov, [facility] [place] [facility] [address] [id number] [place] [address]- 7047 Nov, [facility] [place] [facility] [address] [id number] [place] [address]- 9496 Nov, [facility] [place] [facility] [address] [id number] [place] [address]- 0722 Nov, [facility] [place] [facility] [address] [id number] [place] [address]- 4465 Oct, [facility] [place] [facility] [address] [id number] [place] [address] Oct, [facility] [place] [facility] [address] [id number] [place] [address]- 0051 Oct, [facility] [place] [facility] [address] [id number] [place] [address]- 6292 Sep, [facility] [place] [facility] [address] [id number] [place] [address]- 0150 19 Sep, 2012 [facility] [address] [id number] [place] [address]- 3628 10 Sep, 2012 [facility] [place] [facility] [address] [id number] [place] [address]- 5888 10 Sep, 2012 [facility] [address] [id number] [place] [address]- 0291 27 Aug, 2012 [facility] [place] [facility] [address] [id number] [place] [address]- 5224 20 Aug, 2012 [facility] [address] [id number] [place] [address]- 7662 24 Jul, 2012 [facility] [place] [facility] [address] [id number] [place] [address]- 0182 May, [facility] [place] [facility] [address] [id number] [place] [address]- 3308 14 May, 2012 [facility] [address] [id number] [place] [address]- 6655 14 May, 2012 [facility] [place] [facility] [address] [id number] [place] [address]- 0777 April, [facility] [address] [id number] [place] [address]- 4068 11 Mar, 2012 [facility] [place] [facility] [address] [id number] [place] [address]- 2181 Mar, [facility] [place] [facility] [address] [id number] [place] [address]- 2171 Mar, [facility] [place] [facility] [address] [id number] [place] [address]- 1663 27 Jan, 2012 [facility] [place] [facility] [address] [id number] [place] [address]- 7316 Jan, [facility] [place] [facility] [address] [id number] [place] [address]- 5505 Jan, [facility] [place] [facility] [address] [id number] [place] [address]- 2420 Dec, [facility] [place] [facility] [address] [id number] [place] [address]- 1664 Dec, [facility] [place] [facility] [address] [id number] [place] [address]- 7354 Dec, [facility] [place] [facility] [address] [id number] [place] [address]- 1283 Dec, [facility] [place] [facility] [address] [id number] [place] [address]- 5920 Nov, [facility] [place] [facility] [address] [id number] [place] [address]- 0224 Nov, [facility] [place] [facility] [address] [id number] [place] [address]- 6032 Nov, [facility] [place] [facility] [address] [id number], [place] [address]- 0805 Oct, [facility] [place] [facility] [address] [id number] [place] [address]- 1734 Sep, [facility] [place] [facility] [address] [id number], [place] [address]- 3280 Sep, [facility] [place] [facility] [address] [id number], [place] [address]- 3973 Sep, [facility] [place] [facility] [address] [id number], [place] [address]- 1431 15 Nov, 2010 [facility] [place] [facility] [address] [id number] [place] [address]- 6414 Oct, [facility] [place] [facility] [address] [id number], [place] [address]- 3571 Oct, [facility] [place] [facility] [address] [id number][place] [address] Oct, [facility] [place] [facility] [address] [id number], [place] [address]- 2672 [address], [address] [facility] [id number], [place] [address] Sep, [facility] [id number], [place] [address]130 April, [facility] [address] [id number], [place] [address]- 5266 Nov, [facility] [id number] [place] [address]- 3732 Nov, [facility] [id number] [place] [address]- 8983 Nov, [facility] [id number] [place] [address]- 8400 Nov, [facility] [id number] [place] [address]- 5216 Nov, [facility] [id number] [address] 6343 Oct, [facility] [id number] [place] [address]- 1777 Oct, [facility] [id number], [place] [address] Sep, [facility] [address], [place] [address]- 7814 Jan, IMMUNIZATIONS No Known Immunizations SOCIAL HISTORY Never Assessed REASON FOR VISIT intake PLAN OF CARE VITAL SIGNS MEDICATIONS Medication Instructions Dosage Frequency Start Date End Date Duration Status Exelon 4.6 MG/24HR Transdermal Once a day 1 patch to skin 24h Active Protonix 40 MG Orally Once a day 1 tablet 24h Active Klonopin 0.5 MG Orally at bedtime 1 tablet 28 Active Probiotic - Active Aspir-81 81 MG Orally Once a day 1 tablet 24h 07 Nov, 2016 Active Rivastigmine 4.6 MG/24HR APPLY ONE PATCH TRANSDERMALLY EVERY DAY 30 Active Olanzapine 2.5 MG TAKE 1/2 TABLET BY MOUTH TWICE DAILY 30 Active Citalopram Hydrobromide 20 MG TAKE 1 TABLET BY MOUTH ONCE DAILY 30 Active RESULTS No Results PROCEDURES Procedure Date Ordered Result Body Site [facility] VISIT ESTABLISHED PATIENT Dec 03, 2017 INSTRUCTIONS MEDICATIONS ADMINISTERED No Known Medications MEDICAL (GENERAL) HISTORY Type Description Date Medical History Hypertension Medical History Heart disease CABG X3 Stress test 07/2015 Medical History Gastric ulcer Medical History Hyperlipidemia Medical History Headache syndrome Medical History Psychiatric disorders-depression/racing thoughts Medical History Depression Medical History At [facility] 04/2016 Started on Eliquis Medical [...] 3 inpatient psych treatments in past in [place] oct 2016 [facility]ization [facility] Nov 2016
--- OUTSIDE RECORDS SUMMARY | 2018-08-20 13:10 | XMS REPORT ---
Author Author WOLF AGUIRRE [facility] Address [address] [place] [address] Care Team Providers Care Senior Quality Assurance Engineer Name Role Phone WOLF AGUIRRE Unavailable PROBLEMS Type Condition ICD9-CM Code OHL92-QN Code Onset Dates Condition Status SNOMED Code Problem Sundowning F05 Active 350016536 Problem Constipation, unspecified constipation type K59.00 Active 45010223 Problem Reactive depression F32.9 Active 45059137 Problem Vascular dementia with behavior disturbance F01.51 Active 515580848335018 Problem Insomnia, unspecified type G47.00 Active 995684150 Problem Generalized anxiety disorder F41.1 Active 09550719 Problem Other chronic pain G89.29 Active 62129818 Problem Severe episode of recurrent major depressive disorder, without psychotic features F33.2 Active 14749951 Problem Slow transit constipation K59.01 Active 67121488 Problem 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 Active 888631649 Problem Obsessive thinking F42.8 Active 39149448 Problem Failure to thrive in adult R62.7 Active 626575964 Problem Dysthymic disorder F34.1 Active 02278275 Problem Hypertension I10 Active 29156473 Problem Mood disorder F39 Active 35898710 Problem Irritable bowel syndrome with diarrhea K58.0 Active 927847968 Problem Oropharyngeal dysphagia R13.12 Active 54201934 Problem 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 Active 13988934 Problem Other chronic pain G89.29 Active 41552183 Problem Primary insomnia F51.01 Active 8790732 Problem Poor appetite R63.0 Active 46784078 Problem Atherosclerotic heart disease of [place] 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 Active 498820107268730 Problem Iron deficiency anemia secondary to inadequate dietary iron intake D50.8 Active 356881416 Problem Coarse tremors G25.2 Active 04885096 Problem Gastroesophageal reflux disease without esophagitis K21.9 Active 743467565 Problem Essential hypertension I10 Active 03742575 ALLERGIES No Information ENCOUNTERS Encounter Location Date Diagnosis [facility] [address] [address] May, [facility] [place] [address] [place] [id number] May, [facility] [address] [address] 5[address] May, [facility] [id number] [place] [address] 32272- 4555 April, [facility] [address] [id number] April, Generalized anxiety disorder F41.1 ; Obsessive thinking F42.8 and Insomnia , unspecified type G47.00 [facility] [id number] [place] [address] 54793- 0793 April, [facility] [id number] [place] [address] 49174- 9628 April, Rash of face R21 [facility] [id number] [place] [address] 49133- 2310 Mar, [facility] [id number] [place] [address] 23484- 2420 Mar, [facility] [address] [address] 9760 Mar, [facility] [id number] [place] [address] 45582- 8495 Jan, [facility] [address] [place] [address] 57446- 6851 Jan, [facility] [place] [address] [place] [id number] Jan, Constipation, unspecified constipation type K59.00 and Other chronic pain G89.29 [facility] [address] [place] [address] 27740- 6749 Jan, [facility] [place] [address] [place] [id number] Jan, Obsessive thinking F42.8 and Coarse tremors G25.2 [facility] [id number] [place] [id number] Jan, [facility] [id number] [place] [id number] Jan, [facility] [place] [address] [place] [id number] Jan, Generalized anxiety disorder F41.1 ; Obsessive thinking F42.8 ; Callus of foot L84 and 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 [place] [id number] [place] [address] 77106- 0026 Dec, Generalized anxiety disorder F41.1 and Severe episode of recurrent major depressive disorder, without psychotic features F33.2 [facility] [id number] [place] [address] 84280- 2319 Nov, [facility] [id number] [place] [address] 32733- 2423 Nov, [facility] [place] [address] [place] [id number] Nov, Oropharyngeal dysphagia R13.12 ; Generalized anxiety disorder F41.1 and 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 [facility] [facility] [address] [place] [address] 35287- 3910 Nov, [facility] [id number] [place] [address] [id number] Nov, [facility] [address] [place] [address] 90501- 8995 Nov, [facility] [id number] [place] [address] 64115- 6850 Nov, [facility] [id number] [place] [address] 61880- 2393 Oct, Constipation, unspecified constipation type K59.00 and Mood disorder F39 [facility] [id number] [address] 5729 Oct, [facility] [id number] [id number] Sep, [facility] [id number] [id number] Sep, [facility] [id number] [address] Sep, [facility] [id number] [place] [address] [id number] Sep, [facility] [place] [address] [place] [id number] Sep, Generalized abdominal pain R10.84 [facility] [address] [address] 3304 Sep, [facility] [id number] [place] [address] [id number] Sep, Generalized anxiety disorder F41.1 and Primary insomnia F51.01 [facility] [id number] [place] [id number] Aug, [facility] [id number] [place] [address] [id number] Aug, Generalized anxiety disorder F41.1 [facility] [id number] [address] 3[address] Jul, [facility] [place] [address] [place] [id number] Jul, Obsessive thinking F42.8 [facility] [id number] [address]5 Jul, Generalized anxiety disorder F41.1 and Irritable bowel syndrome with diarrhea K58.0 [facility] [id number] [id number] Jul, Generalized anxiety disorder F41.1 [facility] [id number] [id number] Jun, Generalized anxiety disorder F41.1 [facility] [address] [address] 0597 May, [facility] [place] [address] [place] [id number] May, Generalized anxiety disorder F41.1 ; Irritable bowel syndrome with diarrhea K58.0 and Coarse tremors G25.2 [facility] [id number] [place] [address] 19963- 4387 April, [facility] [id number] [place] [address] 87085- 4593 April, [place] [facility] [id number] [place] [address] 07523- 2863 April, [facility] [id number] [place] [address] 78570- 0097 Mar, [facility] [place] [address] [place] [id number] Mar, Severe episode of recurrent major depressive disorder, without psychotic features F33.2 and Pain in left hip M25.552 [facility] [id number] [place] [address] 68504- 7501 Mar, [facility] [id number] [place] [address] 27447- 2716 Mar, [facility] [id number] [place] [address] 36220- 3323 Mar, [facility] [id number] [place] [address] 82743- 4604 Mar, Pain in right hip M25.551 and Self-care deficit in patient living alone R46.89 [facility] [id number] [place] [address] 98469 -8923 Jan, Other chronic pain G89.29 ; Pain in left hip M25.552 and Slow transit constipation K59.01 [facility] [id number] [place] [address] 99034- 1660 Jan, [facility] [facility] [id number] [place] [address] 07368- 4712 Dec, Other depression F32.89 ; Constipation, unspecified constipation type K59.00 and Insomnia, unspecified type G47.00 [facility] [id number] [place] [address] 21487- 6609 Nov, Reactive depression F32.9 ; Chronic idiopathic constipation K59.04 ; Generalized anxiety disorder F41.1 ; Coarse tremors G25.2 ; Gastroesophageal reflux disease without esophagitis K21.9 ; Dysthymic disorder F34.1 ; Vitamin deficiency, unspecified E56.9 and Primary insomnia F51.[address] [address]78- 6580 Nov, [address] 82249- 6265 Nov, [address] 34582- 4381 Nov, [place] [id number] [place] [address] 72813- 2014 Nov, Reactive depression F32.9 ; Essential hypertension I10 ; Generalized anxiety disorder F41.1 ; Atherosclerotic heart disease of [place] 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 ; Pain in right hip M25.551 ; Other chronic pain G89.29 ; Chronic idiopathic constipation K59.04 ; Primary insomnia F51.01 ; Coarse tremors G25.2 ; Gastroesophageal reflux disease without esophagitis K21.9 ; Iron deficiency anemia secondary to inadequate dietary iron intake D50.8 and Vitamin deficiency, unspecified E56.9 [place] [id number] [place] [address] 43465- 6345 Oct, [place] [facility] [id number] [place] [address] 04213- 6434 Oct, [address] 54002- 9030 Oct, [facility] [id number] [place] [address] 40267- 4879 16 Oct, 2016 Generalized anxiety disorder F41.1 ; Poor appetite R63.0 ; Dehydration E86.0 and Failure to thrive in adult R62.7 [facility] [id number] [place] [address] 73382- 5523 07 Oct, 2016 Generalized anxiety disorder F41.1 and Failure to thrive in adult R62.7 [facility] [id number] [place] [address] 18246- 4724 Oct, [place] [address] 14524- 2571 Oct, [facility] [place] [id number] [place] [address] 71217 -6190 Sep, Vaginal discharge N89.8 and Acute cystitis with hematuria N30.01 [place] [id number] [place] [address] 12433- 9648 Sep, [facility] [id number] [place] [address] 83935- 4463 Sep, [place] [facility] [id number] [place] [address] 66717- 7997 Sep, Dysthymic disorder F34.1 ; Acute vaginitis N76.0 ; Dysuria R30.0 and Vaginal yeast infection B37.3 [place] [id number] [place] [address] 37516- 8945 Aug, [place] [facility] [id number] [place] [address] 86554- 9126 Aug, [facility] [id number] [place] [address] 37602 -3352 Aug, Foul smelling urine R82.90 ; Rapid heart rate R00.0 and Flatulence R14.3 [place] [id number] [place] [address] 04823- 1524 Aug, [place] [id number] [place] [address] 33718- 5471 Jul, Constipation, unspecified constipation type K59.00 ; Weak R53.1 ; Poor appetite R63.0 ; Coronary artery disease involving [place] heart without angina pectoris, unspecified vessel or lesion type I25.10 ; Fatigue, unspecified type R53.83 ; Urinary incontinence, unspecified type R32 and Insomnia, unspecified type G47.00 [place] [id number] [place] [address] 94108- 3739 Jul, [place] [facility] [address] 85998- 3468 Jun, Dysuria R30.0 [place] [id number] [place] [address] 84157- 7719 Jun, [place] [address] 77641- 4604 Jun, Urinary tract infection, site not specified N39.0 ; Acute vaginitis N76.0 and Diarrhea, unspecified type R19.7 [place] [address] 94996- 2796 May, [place] [id number] [place] [address] 71941- 1067 April, [facility] [address] [id number] April, Encounter for dental examination Z01.20 [place] [id number] [place] [address] 22472- 6069 April, [place] [address] 74975- 8779 April, Tremor R25.1 and Episodic tension-type headache, not intractable G44.219 [place] [address] 29781- 5460 Mar, [place] [address] [address]- 0701 15 Jan, 2016 Mood disorder F39 [facility] [address] [place] [address] 46181 -0647 Jan, [facility] [id number] [place] [address] 49757- 2184 Jan, [facility] [id number] [place] [address] 14306- 5622 Jan, [facility] [id number] [place] [address] 72671- 8180 Jan, [facility] [id number] [place] [address] 99982- 0500 Jan, [facility] [id number] [place] [address] 57053- 6625 Jan, [facility] [id number] [place] [address] 04671 -5959 Dec, Acute diarrhea R19.7 [facility] [id number] [place] [address] 17547- 6434 Dec, [facility] [id number] [place] [address] 24200- 2687 Dec, [facility] [address] [place] [address] 91125- 0379 Dec, [facility] [address] [place] [address] 12635 -8967 Dec, N&V (nausea and vomiting) R11.2 [facility] [id number] [place] [address] 98806- 2934 Dec, Generalized anxiety disorder F41.1 [facility] [address] [place] [address] 98897- 5662 Dec, Generalized anxiety disorder F41.1 [facility] [id number] [place] [address] 18873- 4751 Nov, Post concussion syndrome F07.81 [facility] [address] [place] [address] 829246- 7427 Nov, Generalized anxiety disorder F41.1 [facility] [address] [place] [address] 959288- 3266 Nov, [facility] [id number] [place] [address] 83615- 3911 Nov, Generalized anxiety disorder F41.1 [facility] [id number] [place] [address] [id number] Oct, Dental caries K02.9 [facility] [id number] [place] [address] 044243- 0636 Oct, [facility] [id number] [place] [address] [id number] Oct, Dental examination Z01.20 [facility] [id number] [place] [address] [id number] Oct, Encounter for dental examination Z01.20 [facility] [id number] [place] [address] 86579- 3107 Oct, CAD (coronary artery disease) I25.10 [facility] [address] [place] [address] 40959- 7438 Sep, Generalized anxiety disorder F41.1 [facility] [id number] [place] [address] 04160- 9246 Sep, [facility] [address] [place] [address] 22046- 9552 Sep, Rash and other nonspecific skin eruption R21 and Yeast vaginitis B37.3 [facility] [address] [place] [address] 103499- 9895 Sep, Generalized anxiety disorder F41.1 [facility] [id number] [place] [address] 50058- 4261 Aug, Insect bites 919.4 and Hemorrhoids 455.6 [facility] [id number] [place] [address] 46864- 7795 Aug, Generalized anxiety disorder 300.02 [facility] [id number] [place] [address] 02532- 7719 Aug, [facility] [address] 77790- 7196 Aug, [facility] [id number] [place] [address] 98165- 8619 Aug, Generalized anxiety disorder 300.02 ; No condition on [place] II V71.09 ; Heart problem 429.9 and Hypertension 401.9 [facility] [id number] [place] [address] 58844- 9734 Aug, [facility] [address] 89510- 8310 Jul, [facility] [id number] [place] [address] 24783- 7260 Jul, [facility] [id number] [place] [address] 77778- 6617 Jul, [facility] [id number] [place] [address] 17673- 7372 Jul, [facility] [id number] [place] [address] 23625- 6188 Jul, Rash 782.1 [facility] [id number] [place] [address] 42339- 5449 Jul, UTI (urinary tract infection) 599.0 [facility] [id number] [place] [address] 48729- 5406 Jul, [facility] [id number] [place] [address] 94877- 3713 Jun, Dysthymia 300.4 and Anxiety 300.00 [facility] [address] [facility] [id number] [address]- 9646 Jun, 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 [facility] [address] [address]- 8096 May, [facility] [address] [facility] [id number] [place] [address]- 9878 May, [facility] [id number] [address]- 6304 May, Unspecified breast screening V76.10 [facility] [address] [id number] [id number] May, Dental examination V72.2 [facility] [id number] [address]- 4246 April, [facility] [address] [address]- 5801 April, [facility] [id number] [place] [address] [id number] April, Dental examination V72.2 [facility] [address] [place] [address] [id number] April, Dental examination V72.2 [facility] [address] [address]- 9586 Mar, [facility] [address] [address]- 7126 Mar, [facility] [address] [facility] [id number] [place] [address]- 1316 Jan, [facility] [address] [facility] [id number] [place] [address]- 1476 Jan, [facility] [address] [facility] [id number] [place] [address] 2546 Jan, [facility] [address] [facility] [id number] [place] [address]- 3856 Jan, [facility] [place] [facility] [address] [id number] [place] [address]- 1128 16 Jan, 2015 [facility] [place] [facility] [address] [id number] [place] [address]- 4211 16 Jan, 2015 [facility] [place] [facility] [address] [id number] [place] [address]- 3924 13 Jan, 2015 [facility] [place] [facility] [address] [id number] [place] [address]- 7026 13 Jan, 2015 [facility] [place] [facility] [address] [id number] [place] [address]- 7213 11 Jan, 2015 [facility] [place] [facility] [address] [id number] [place] [address]- 2385 Jan, [facility] [place] [facility] [address] [id number] [place] [address]- 3806 Jan, [facility] [place] [facility] [address] [id number] [place] [address]- 7535 Jan, [facility] [place] [facility] [address] [id number] [place] [address]- 0886 Jan, [facility] [place] [facility] [address] [id number] [place] [address]- 8238 Jan, [facility] [place] [facility] [address] [id number] [place] [address]- 1216 Jan, [facility] [place] [facility] [address] [id number] [place] [address]- 6349 Jan, 2014 [facility] [place] [facility] [address] [id number] [place] [address]- 2585 Jan, 2014 [facility] [place] [facility] [address] [id number] [place] [address]- 5342 Jan, 2014 [facility] [place] [facility] [address] [id number] [place] [address]- 9443 Jan, 2014 [facility] [place] [facility] [address] [id number] [place] [address]- 2647 Jan, [facility] [place] [facility] [address] [id number] [place] [address]- 4224 Jan, [facility] [place] [facility] [address] [id number] [place] [address] Jan, [facility] [place] [facility] [address] [id number] [place] [address] Dec, [facility] [place] [facility] [address] [id number] [place] [address] Dec, [facility] [place] [facility] [address] [id number] [place] [address] Dec, [facility] [place] [facility] [address] [id number] [place] [address] Dec, [facility] [place] [facility] [address] [id number] [place] [address] Nov, [facility] [place] [facility] [address] [id number] [place] [address] Nov, [facility] [place] [facility] [address] [id number] [place] [address] Nov, [facility] [place] [facility] [address] [id number] [place] [address] Nov, [facility] [place] [facility] [address] [id number] [place] [address] Nov, [facility] [place] [facility] [address] [id number] [place] [address] Nov, [facility] [place] [facility] [address] [id number] [place] [address] Nov, [facility] [place] [facility] [address] [id number] [place] [address] Oct, [facility] [place] [facility] [address] [id number] [place] [address] Oct, [facility] [place] [facility] [address] [id number] [place] [address] Oct, [facility] [place] [facility] [address] [id number] [place] [address] Oct, [facility] [place] [facility] [address] [id number] [place] [id number] [address] Oct, [facility] [place] [facility] [address] [id number] [place] [address] Oct, [facility] [place] [facility] [address] [id number] [place] [address] Oct, [facility] [place] [facility] [address] [id number] [place] [address] Oct, [facility] [place] [facility] [address] [id number] [place] [address] Oct, [facility] [place] [facility] [address] [id number] [place] [address] Oct, [facility] [place] [facility] [address] [id number] [place] [address] Oct, [facility] [place] [facility] [address] [id number] [place] [address] Oct, [facility] [place] [facility] [address] [id number] [place] [address] Sep, [facility] [place] [facility] [address] [id number] [place] [address] Sep, [facility] [place] [facility] [address] [id number] [place] [address] 279[address] Sep, [facility] [place] [facility] [address] [id number] [place] [address] Sep, [facility] [place] [facility] [address] [id number] [place] [address] Jul, [facility] [place] [facility] [address] [id number] [place] [address]266 Jul, [facility] [place] [facility] [address] [id number] [place] [address] Jul, [facility] [place] [facility] [address] [id number] [place] [address] Jul, [facility] [place] [facility] [address] [id number] [place] [address] 1043 Jun, [facility] [place] [facility] [address] [id number] [place] [address] 2969 Jun, [facility] [place] [facility] [address] [id number] [place] [address] 8849 Jun, [facility] [place] [facility] [address] [id number] [place] [address] 9678 Jun, [facility] [place] [facility] [address] [id number] [place] [address] 3973 May, [facility] [place] [facility] [address] [id number] [place] [address]- 7265 May, [facility] [place] [facility] [address] [id number] [place] [address]143 April, [facility] [place] [facility] [address] [id number] [place] [address] 9422 April, [facility] [place] [facility] [address] [id number] [place] [address]- 4726 April, [facility] [place] [facility] [address] [id number] [place] [address] 9851 April, [facility] [place] [facility] [address] [id number] [place] [address] April, [facility] [place] [facility] [address] [id number] [place] [address] April, [facility] [place] [facility] [address] [id number] [place] [address]- 1259 April, [facility] [place] [facility] [address] [id number] [place] [address]- 8048 April, [facility] [address] [id number] [place] [address] 5561 April, [facility] [place] [facility] [address] [id number] [place] [address] 9036 Mar, [facility] [place] [facility] [address] [id number] [place] [address]- 9052 Mar, [facility] [place] [facility] [address] [id number] [place] [address] 7180 Mar, [facility] [place] [facility] [address] [id number] [place] [address] 4621 Mar, [facility] [place] [facility] [address] [id number] [place] [address]- [address] Jan, [facility] [place] [facility] [address] [id number] [place] [address] 6479 Jan, [facility] [address] [id number] [place] [address]- 9236 Jan, [facility] [place] [facility] [address] [id number] [place] [address]- 7571 Jan, [facility] [address] [id number] [place] [address]- 3055 Jan, [facility] [place] [facility] [address] [id number] [place] [address]- 1540 Jan, [facility] [place] [facility] [address] [id number] [place] [address]- 1110 Jan, [facility] [place] [facility] [address] [id number] [place] [address] 5162 Jan, [facility] [place] [facility] [address] [id number] [place] [address] 7404 Jan, [facility] [place] [facility] [address] [id number] [place] [address]- 2868 Jan, [facility] [place] [facility] [address] [id number] [place] [address]- 466[address] Jan, [facility] [place] [facility] [address] [id number] [place] [address]- 6077 Jan, [facility] [place] [facility] [address] [facility] [id number] [place] [address]- 4600 Dec, [facility] [place] [facility] [address] [id number] [place] [address]- 6046 Dec, [facility] [place] [facility] [address] [id number] [place] [address]- 6603 Dec, [facility] [place] [facility] [address] [id number] [place] [address]- 6810 Dec, [facility] [place] [facility] [address] [id number] [place] [address]- 9676 Nov, [facility] [place] [facility] [address] [id number] [address] 80[address] Nov, [facility] [place] [facility] [address] [id number] [place] [address]- 3610 Nov, [facility] [place] [facility] [address] [id number] [place] [address] Nov, [facility] [place] [facility] [address] [id number] [address] Oct, [facility] [place] [facility] [address] [id number] [place] [address] 7723 Oct, [facility] [place] [facility] [address] [id number] [place] [address]- 8070 Sep, [facility] [place] [facility] [address] [id number] [place] [address] 8589 Sep, [facility] [place] [facility] [address] [id number] [place] [address]- 9517 Jul, [facility] [place] [facility] [address] [id number] [place] [address]- 2232 Jul, [facility] [address] [id number] [place] [address]- 3770 Jun, [facility] [address] [id number] [place] [address]- 7772 Jun, [facility] [address] [id number] [place] [address]- 1855 Jun, [facility] [address] [id number] [place] [address] 3102 May, [facility] [address] [id number] [place] [address]- 2339 May, [facility] [address] [id number] [place] [address]- 5526 May, [facility] [address] [id number] [place] [address]- 7130 May, [facility] [address] [id number] [place] [address]- 2155 May, [facility] [address] [id number] [place] [address]- 0120 April, [facility] [address] [id number] [place] [address]- 3029 April, [facility] [address] [id number] [place] [address]- 8434 April, [facility] [address] [id number] [place] [address]- 0733 April, [facility] [place] [facility] [address] [id number] [place] [address]- 0171 April, [facility] [place] [facility] [address] [id number] [place] [address]- 9231 April, [facility] [address] [id number] [place] [address]- 3808 Mar, [facility] [place] [facility] [address] [id number] [place] [address]- 3527 15 Mar, 2013 [facility] [address] [id number] [place] [address]- 0513 Jan, [facility] [address] [id number] [place] [address]- 7745 Jan, [facility] [place] [facility] [address] [id number] [place] [address]- 1688 Jan, [facility] [address] [id number] [place] [address]- 9947 Jan, [facility] [place] [facility] [address] [id number] [place] [address]- 8711 Jan, [facility] [address] [id number] [place] [address]- 9088 Jan, [facility] [address] [id number] [place] [address]- 3885 Jan, [facility] [address] [id number] [place] [address]- 3679 Jan, [facility] [address] [facility] [id number] [place] [address]- 5783 Jan, [facility] [address] [id number] [place] [address]- 1450 Jan, [facility] [place] [facility] [address] [id number] [address]- 6370 Jan, [facility] [place] [facility] [address] [id number] [place] [address]- 1275 Dec, [facility] [place] [facility] [address] [id number] [place] [address]- 1801 Nov, [facility] [place] [facility] [address] [id number] [place] [address]- 0932 Nov, [facility] [place] [facility] [address] [id number] [place] [address]- 9657 26 Nov, 2012 [facility] [place] [facility] [address] [id number] [place] [address]- 4256 26 Nov, 2012 [facility] [place] [facility] [address] [id number] [place] [address]- 0066 Nov, [facility] [place] [facility] [address] [id number] [place] [address]- 5626 Nov, [facility] [place] [facility] [address] [id number] [place] [address]- 1076 Nov, [facility] [place] [facility] [address] [id number] [place] [address]- 0282 Nov, [facility] [place] [facility] [address] [id number] [place] [address]- 7709 Nov, [facility] [place] [facility] [address] [facility] [id number] [place] [address]- 7758 18 Nov, 2012 [facility] [place] [facility] [address] [id number] [place] [address]- 7823 18 Nov, 2012 [facility] [place] [facility] [address] [facility] [id number] [place] [address]- 5662 Nov, [facility] [place] [facility] [address] [facility] [id number] [place] [address]- 9485 Nov, [facility] [place] [facility] [address] [id number] [place] [address]- 0776 Oct, [facility] [place] [facility] [address] [id number] [place] [address]- 5780 Oct, [facility] [place] [facility] [address] [id number] [place] [address]- 2404 Oct, [facility] [place] [facility] [address] [facility] [id number] [place] [address] Sep, [facility] [place] [facility] [address] [id number] [place] [address]- 2833 Sep, [facility] [place] [facility] [address] [id number] [place] [address]- 3506 10 Sep, 2012 [facility] [place] [facility] [address] [id number] [place] [address]- 8170 Sep, [facility] [place] [facility] [address] [id number] [place] [address]- 2225 27 Aug, 2012 [facility] [place] [facility] [address] [id number] [place] [address]- 9482 20 Aug, 2012 [facility] [place] [facility] [address] [id number] [place] [address]- 2217 24 Jul, 2012 [facility] [place] [facility] [address] [id number] [place] [address]- 1640 May, [facility] [place] [facility] [address] [id number] [place] [address]- 9228 May, [facility] [place] [facility] [address] [id number] [place] [address]- 3043 May, [facility] [place] [facility] [address] [id number] [place] [address]- 9702 April, [facility] [place] [facility] [address] [id number] [place] [address]- 9305 Mar, [facility] [place] [facility] [address] [id number] [place] [address]- 3077 Mar, [facility] [place] [facility] [address] [id number] [place] [address]- 8670 Mar, [facility] [place] [facility] [address] [id number] [place] [address]- 3006 Jan, [facility] [place] [facility] [address] [id number] [place] [address]- 2781 Jan, [facility] [place] [facility] [address] [id number] [place] [address]- 6324 Jan, [facility] [place] [facility] [address] [id number] [place] [address]- 6299 Dec, [facility] [place] [facility] [address] [id number] [place] [address]- 9565 Dec, [facility] [place] [facility] [address] [id number] [place] [address]- 0058 Dec, [facility] [place] [facility] [address] [id number] [place] [address]- 1411 Dec, [facility] [place] [facility] [address] [id number] [place] [address]- 8845 Nov, [facility] [place] [facility] [address] [id number] [place] [address]- 6199 Nov, [facility] [place] [facility] [address] [id number] [place] [address]- 0435 Nov, [facility] [place] [facility] [address] [id number] [place] [address]- 1479 Oct, [facility] [place] [facility] [address] [id number] [place] [address]- 9470 Sep, [facility] [place] [facility] [address] [id number] [place] [address]- 1547 Sep, [facility] [place] [facility] [address] [id number] [place] [address]- 3364 Sep, [facility] [place] [facility] [address] [id number] [address]- 7143 Nov, [facility] [place] [facility] [address] [id number] [place] [address]- 1933 Oct, [facility] [place] [facility] [address] [id number] [place] [address]- 7199 Oct, [facility] [place] [facility] [address] [id number] [place] [address]- 2192 18 Oct, 2010 [facility] [place] [facility] [address] [id number] [place] [address]- 6499 16 Oct, 2010 [facility] [place] [facility] [id number] [address] Sep, [facility] [id number] [address] 1217 April, [facility] [address] [facility] [id number] [place] [address]- 7331 Nov, [facility] [id number] [address] Nov, [facility] [address] [facility] [id number] [place] [address]- 2640 Nov, [facility] [id number] [address] Nov, [facility] [id number] [address] Nov, [facility] [id number] [address]- 1235 Oct, [facility] [id number] [address]- 2099 Oct, [facility] [id number] [address]- 0[address] Sep, [facility] [id number] [address]- 7407 Jan, IMMUNIZATIONS No Known Immunizations SOCIAL HISTORY Never Assessed REASON FOR VISIT PLAN OF CARE Activity Details Follow Up prn Reason: VITAL SIGNS MEDICATIONS Medication Instructions Dosage Frequency Start Date End Date Duration Status Aspir-81 81 MG Orally Once a day 1 tablet 24h Nov, Active Naproxen 500 mg Orally every 12 hrs 1 tablet as needed 12h Jan, Active Exelon 4.6 MG/24HR Transdermal Once a day 1 patch to skin 24h Active Mucinex 600 MG Orally every 12 hrs 1 tablet 12h Nov, Nov, 07 days Active Celexa 10 mg Orally Once a day 1.5 tablets 24h Active Probiotic - Active Citalopram Hydrobromide 20 MG TAKE 1 TABLET BY MOUTH ONCE DAILY 30 Active Rivastigmine 4.6 MG/24HR APPLY ONE PATCH TRANSDERMALLY EVERY DAY 30 Active Citalopram Hydrobromide 10 mg Orally Once a day 1.5 tabs 24h Active Olanzapine 2.5 MG TAKE 1/2 TABLET BY MOUTH TWICE DAILY 30 Active Klonopin 0.5 MG Orally at bedtime 1 tablet 28 Active RESULTS No Results PROCEDURES Procedure Date Ordered Result Body Site Minor complication (15 mins) Nov 26, 2017 INSTRUCTIONS MEDICATIONS ADMINISTERED No Known Medications [...] History Intertrechanteric hip fx 04/27/16 Hospitalization History [facility] (inpatient [facility] 2 times) Hx of 3 inpatient psych treatments in past in [place] oct 2016 [facility]
--- OUTSIDE RECORDS SUMMARY | 2018-08-20 13:11 | XMS REPORT ---
Author Author WOLF AGUIRRE [facility] Address [address] [place] [address] Care Team Providers Care Supervisor Grounds Name Role Phone WOLF AGUIRRE Unavailable PROBLEMS Type Condition ICD9-CM Code YWE42-BL Code Onset Dates Condition Status SNOMED Code Problem Sundowning F05 Active 465784659 Problem Constipation, unspecified constipation type K59.00 Active 31449095 Problem Reactive depression F32.9 Active 24258964 Problem Vascular dementia with behavior disturbance F01.51 Active 490170451436500 Problem Insomnia, unspecified type G47.00 Active 042147067 Problem Generalized anxiety disorder F41.1 Active 32714822 Problem Other chronic pain G89.29 Active 64003373 Problem Severe episode of recurrent major depressive disorder, without psychotic features F33.2 Active 50822244 Problem Slow transit constipation K59.01 Active 24169401 Problem 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 Active 316530075 Problem Obsessive thinking F42.8 Active 54309356 Problem Failure to thrive in adult R62.7 Active 014045544 Problem Dysthymic disorder F34.1 Active 43137134 Problem Hypertension I10 Active 08228834 Problem Mood disorder F39 Active 76835799 Problem Irritable bowel syndrome with diarrhea K58.0 Active 154140932 Problem Oropharyngeal dysphagia R13.12 Active 60623777 Problem 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 Active 63093216 Problem Other chronic pain G89.29 Active 66447874 Problem Primary insomnia F51.01 Active 9386021 Problem Poor appetite R63.0 Active 45016850 Problem Atherosclerotic heart disease of [place] 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 Active [id number] Problem Iron deficiency anemia secondary to inadequate dietary iron intake D50.8 Active 303517988 Problem Coarse tremors G25.2 Active 27093430 Problem Gastroesophageal reflux disease without esophagitis K21.9 Active 377610018 Problem Essential hypertension I10 Active 62452865 ALLERGIES No Information ENCOUNTERS Encounter Location Date Diagnosis [place] [id number], [place] [address] April, Rash of face R21 [place] [id number] [place] [address] 63806- 0845 Mar, [place] [id number] [place] [address] 33870- 5618 Mar, [place] [id number] [place] [address] 89444- 7108 Mar, [place] [id number] [place] [address] 90460- 8558 Jan, [place] [id number] [place] [address] 81138- 7894 Jan, [facility] [address] [place] [id number] Jan, Constipation, unspecified constipation type K59.00 and Other chronic pain G89.29 [place] [id number] [place] [address] 41157- 8569 Jan, [facility] [address] [place] [id number] Jan, Obsessive thinking F42.8 and Coarse tremors G25.2 [place] [address] [id number] [place] [address] [id number] Jan, [place] [id number] [place] [address] [id number] Jan, [facility] [address] [place] [id number] Jan, Generalized anxiety disorder F41.1 ; Obsessive thinking F42.8 ; Callus of foot L84 and 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 [place] [address], [place] [address] Dec, Generalized anxiety disorder F41.1 and Severe episode of recurrent major depressive disorder, without psychotic features F33.2 [place] [address] [address] Nov, [facility] [address] [place] [address] 12539- 1462 Nov, [facility] [address] [place] [id number] Nov, Oropharyngeal dysphagia R13.12 ; Generalized anxiety disorder F41.1 and 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 [facility] [id number], [place] [address] 84[address] Nov, [facility] [id number] [place] [address] [id number] Nov, [facility] [id number] [place] [address] 96972- 8739 Nov, [facility] [id number] [place] [address] 19865- 1718 Nov, [facility] [id number] [place] [address] 57780- 4856 Oct, Constipation, unspecified constipation type K59.00 and Mood disorder F39 [facility] [address] [place] [address] 62659- 3910 Oct, [facility] [id number] [place] [address] [id number] Sep, [facility] [id number] [place] [address] [id number] Sep, [facility] [id number] [place] [address] [id number] Sep, [facility] [id number] [place] [address] [id number] Sep, [facility] [address] [place] [id number] Sep, Generalized abdominal pain R10.84 [facility] [address] [place] [address] 33281- 2764 Sep, [facility] [id number] [id number] Sep, Generalized anxiety disorder F41.1 and Primary insomnia F51.01 [facility] [id number] [id number] Aug, [facility] [id number] [id number] Aug, Generalized anxiety disorder F41.1 [facility] [id number], [place] [address] 3741 Jul, [facility] [address] [place] [id number] Jul, Obsessive thinking F42.8 [facility] [address], [place] [address] 0424 Jul, Generalized anxiety disorder F41.1 and Irritable bowel syndrome with diarrhea K58.0 [facility] [id number] [id number] Jul, Generalized anxiety disorder F41.1 [facility] [id number] [address] Jun, Generalized anxiety disorder F41.1 [facility] [id number] [address] 9490 May, [facility] [address] [place] [id number] May, Generalized anxiety disorder F41.1 ; Irritable bowel syndrome with diarrhea K58.0 and Coarse tremors G25.2 [facility] [id number] [address] 6719 April, [facility] [address] [address] April, [facility] [address] [id number] [address] April, [facility] [address], [place] [address]- 1750 Mar, [facility] [address] [place] [id number] Mar, Severe episode of recurrent major depressive disorder, without psychotic features F33.2 and Pain in left hip M25.552 [facility] [address] [place] [address] 11402- 7891 Mar, [facility] [id number] [place] [address] 83160- 9189 Mar, [facility] [id number] [place] [address] 28590- 6083 Mar, [place] [id number] [place] [address] 33925- 1539 Mar, Pain in right hip M25.551 and Self-care deficit in patient living alone R46.[address] [facility] [id number] [place] [address] 93893 -4295 Jan, Other chronic pain G89.29 ; Pain in left hip M25.552 and Slow transit constipation K59.01 [place] [id number] [place] [address] 52019- 8351 Jan, [place] [address] [place] [address] 18835- 7293 Dec, Other depression F32.89 ; Constipation, unspecified constipation type K59.00 and Insomnia, unspecified type G47.00 [facility] [id number] [place] [address] 25800- 4113 Nov, Reactive depression F32.9 ; Chronic idiopathic constipation K59.04 ; Generalized anxiety disorder F41.1 ; Coarse tremors G25.2 ; Gastroesophageal reflux disease without esophagitis K21.9 ; Dysthymic disorder F34.1 ; Vitamin deficiency, unspecified E56.9 and Primary insomnia F51.01 [place] [id number] [place] [address] 78097- 7214 Nov, [place] [id number] [place] [address] 37928- 2065 Nov, [place] [id number] [place] [address] 37879- 9959 Nov, [place] [id number] [place] [address] 08921- 3790 07 Nov, 2016 Reactive depression F32.9 ; Essential hypertension I10 ; Generalized anxiety disorder F41.1 ; Atherosclerotic heart disease of [place] 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 ; Pain in right hip M25.551 ; Other chronic pain G89.29 ; Chronic idiopathic constipation K59.04 ; Primary insomnia F51.01 ; Coarse tremors G25.2 ; Gastroesophageal reflux disease without esophagitis K21.9 ; Iron deficiency anemia secondary to inadequate dietary iron intake D50.8 and Vitamin deficiency, unspecified E56.9 [place] [id number] [place] [address] 27102- 8910 Oct, [place] [id number] [place] [address] 62914- 8593 Oct, [place] [id number] [place] [address] 94499- 6296 Oct, [place] [id number] [place] [address] 80832- 0844 16 Oct, 2016 Generalized anxiety disorder F41.1 ; Poor appetite R63.0 ; Dehydration E86.0 and Failure to thrive in adult R62.7 [place] [id number] [place] [address] 82582- 2972 07 Oct, 2016 Generalized anxiety disorder F41.1 and Failure to thrive in adult R62.7 [place] [address] [address] [place] [address] 68446- 9162 Oct, [place] [address] [place] [address] 32354- 7056 Oct, [facility] [id number] [place] [address] 42868 -0380 Sep, Vaginal discharge N89.8 and Acute cystitis with hematuria N30.01 [facility] [id number] [place] [address] 78875- 4964 Sep, [facility] [id number] [place] [address] 00769- 7724 Sep, [facility] [address] 05535- 6339 Sep, Dysthymic disorder F34.1 ; Acute vaginitis N76.0 ; Dysuria R30.0 and Vaginal yeast infection B37.3 [place] [address] 53219- 8485 Aug, [place] [address] 59308- 0559 Aug, [facility] [address] 19314 -4876 Aug, Foul smelling urine R82.90 ; Rapid heart rate R00.0 and Flatulence R14.3 [place] [id number] [place] [address] 17626- 5669 Aug, [facility] [id number] [place] [address] 43826- 3949 Jul, Constipation, unspecified constipation type K59.00 ; Weak R53.1 ; Poor appetite R63.0 ; Coronary artery disease involving [place] heart without angina pectoris, unspecified vessel or lesion type I25.10 ; Fatigue, unspecified type R53.83 ; Urinary incontinence, unspecified type R32 and Insomnia, unspecified type G47.00 [facility] [id number] [place] [address] 38369- 1584 Jul, [facility] [id number] [place] [address] 47335- 3665 Jun, Dysuria R30.0 [facility] [id number] [place] [address] 64775- 0101 Jun, [facility] [address], [place] [address]- 1822 Jun, Urinary tract infection, site not specified N39.0 ; Acute vaginitis N76.0 and Diarrhea, unspecified type R19.7 [facility] [address], [place] [address]- 7233 May, [facility] [id number] [place] [address] 21872- 8517 April, [facility] [id number] [place] [address] [id number] April, Encounter for dental examination Z01.20 [facility] [id number] [place] [address] 51237- 2571 April, [facility] [id number] [place] [address] 56385- 2147 April, Tremor R25.1 and Episodic tension-type headache, not intractable G44.219 [facility] [address], [place] [address]- 9445 Mar, [facility] [id number] [place] [address] 78780- 3713 Jan, Mood disorder F[address] [facility] [address], [place] [address] Jan, [facility] [address], [place] [address]- 4135 Jan, [facility] [address], [place] [address]- 2471 Jan, [facility] [id number] [place] [address] 29729- 6905 Jan, [facility] [address], [place] [address]- 4905 Jan, [facility] [address], [place] [address]- 3302 03 Jan, 2016 [facility] [address] [place] [address] 49833 -8882 Dec, Acute diarrhea R19.7 [facility] [id number] [place] [address] 15792- 1746 Dec, [facility] [id number] [place] [address] 86039- 3482 Dec, [facility] [id number] [place] [address] 88004- 7788 Dec, [facility] [id number] [place] [address] 31680 -4022 Dec, N&V (nausea and vomiting) R11.2 [facility] [id number] [place] [address] 76305- 1177 Dec, Generalized anxiety disorder F41.1 [facility] [id number] [place] [address] 01387- 7216 Dec, Generalized anxiety disorder F41.1 [facility] [id number] [place] [address] 21988- 0399 Nov, Post concussion syndrome F07.81 [facility] [id number] [place] [address] 51995- 2487 Nov, Generalized anxiety disorder F41.1 [facility] [id number] [place] [address] 81147- 3885 Nov, [facility] [address] [place] [address] 37411- 7703 Nov, Generalized anxiety disorder F41.1 [facility] [address] [place] [address] [id number] Oct, Dental caries K02.9 [facility] [address] [place] [address] 65627- 8981 Oct, [facility] [id number] [id number] Oct, Dental examination Z01.20 [facility] [id number] [place] [address] [id number] Oct, Encounter for dental examination Z01.20 [facility] [address] 83942- 5657 Oct, CAD (coronary artery disease) I25.10 [facility] [address] 77887- 5885 Sep, Generalized anxiety disorder F41.1 [facility] [address] 63176- 4436 Sep, [facility] [address] 60236- 4926 Sep, Rash and other nonspecific skin eruption R21 and Yeast vaginitis B37.3 [facility] [id number] [place] [address] 45198- 3107 Sep, Generalized anxiety disorder F41.1 [facility] [address] 05220- 0470 Aug, Insect bites 919.4 and Hemorrhoids 455.6 [facility] [address] [place] [address] 80170- 0178 Aug, Generalized anxiety disorder 300.02 [facility] [id number] [place] [address] 74124- 3534 08 Aug, 2015 [facility] [id number] [place] [address] 93061- 0825 Aug, [facility] [address] 93446- 7944 Aug, Generalized anxiety disorder 300.02 ; No condition on Cushing II V71.09 ; Heart problem 429.9 and Hypertension 401.9 [facility] [address] 32273- 0820 Aug, [facility] [id number], [place] [address]- 1851 Jul, [facility] [address], [place] [address]- 1853 Jul, [facility] [address], [place] [address]- 0363 Jul, [facility] [id number] [place] [address] 81563- 1975 Jul, [facility] [address] [place] [address] 54088- 2200 Jul, Rash 782.1 [facility] [id number] [place] [address] 62685- 0050 Jul, UTI (urinary tract infection) 599.0 [facility] [address] [place] [address] 13805- 3869 Jul, [facility] [address], [place] [address]- 9930 Jun, Dysthymia 300.4 and Anxiety 300.00 [facility] [address], [place] [address]- 4239 Jun, 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 [facility] [address], [place] [address]- 5344 May, [facility] [address] [place] [address] 45440- 7241 May, [facility] [id number], [place] [address]- 6770 May, Unspecified breast screening V76.10 [facility] [address] [id number] May, Dental examination V72.2 [facility] [address] [place] [address] 91525- 9459 April, [facility] [address] [id number] [place] [address] 2546 April, [facility] [address] [id number] [place] [id number] April, Dental examination V72.2 [facility] [address] [id number] [place] [id number] April, Dental examination V72.2 [facility] [address] [id number] [place] [address]- 1956 Mar, [facility] [place] [facility] [address] [id number] [place] [address]- 5869 Mar, [facility] [place] [facility] [address] [id number] [place] [address]- 5096 Jan, [facility] [place] [facility] [address] [id number] [place] [address]- 1746 25 Jan, 2015 [facility] [place] [facility] [address] [id number], [place] [address]- 6063 18 Jan, 2015 [facility] [place] [facility] [address] [id number] [place] [address]- 3771 18 Jan, 2015 [facility] [place] [facility] [address] [id number] [place] [address]- 6230 16 Jan, 2015 [facility] [place] [facility] [address] [id number], [place] [address]- 6066 16 Jan, 2015 [facility] [place] [facility] [address] [id number], [place] [address]- 4977 13 Jan, 2015 [facility] [place] [facility] [address] [id number] [place] [address]- 3447 13 Jan, 2015 [facility] [place] [facility] [address] [id number], [place] [address]- 9236 11 Jan, 2015 [facility] [place] [facility] [address] [id number] [place] [address]- 9961 11 Jan, 2015 [facility] [place] [facility] [address] [id number] [place] [address]- 7379 Jan, [facility] [place] [facility] [address] [id number] [place] [address]- 7222 Jan, [facility] [place] [facility] [address] [id number] [place] [address]- 3064 Jan, [facility] [place] [facility] [address] [id number] [place] [address]- 8733 Jan, [facility] [place] [facility] [address] [id number] [place] [address]- 2678 Jan, 2014 [facility] [place] [facility] [address] [id number] [place] [address]- 0711 Jan, 2014 [facility] [place] [facility] [address] [facility] [id number] [place] [address]- 9311 Jan, 2014 [facility] [place] [facility] [address] [facility] [id number] [place] [address]- 9719 Jan, 2014 [facility] [place] [facility] [address] [id number] [place] [address]- 9104 Jan, [facility] [place] [facility] [address] [facility] [id number] [place] [address]- 3317 Jan, [facility] [place] [facility] [address] [facility] [id number] [place] [address]- 8430 Jan, [facility] [place] [facility] [address] [facility] [id number] [place] [address]- 6530 Jan, [facility] [place] [facility] [address] [id number] [place] [address]- 8896 Dec, [facility] [place] [facility] [address] [id number] [place] [address]- 6281 Dec, [facility] [place] [facility] [address] [facility] [id number] [place] [address]- 3114 Dec, [facility] [place] [facility] [address] [facility] [id number] [place] [address]- 1533 Dec, [facility] [place] [facility] [address] [id number] [place] [address]- 0015 Nov, [facility] [place] [facility] [address] [id number] [place] [address]- 3163 Nov, [facility] [place] [facility] [address] [id number] [place] 7460 Nov, [facility] [place] [facility] [address] [id number] [place] [address] Nov, [facility] [place] [facility] [address] [id number] [place] [address] Nov, [facility] [place] [facility] [address] [id number] [place] [address] Nov, [facility] [place] [facility] [address] [id number] [place] [address] Nov, [facility] [place] [facility] [address] [id number] [place] [address] Oct, [facility] [place] [facility] [address] [id number] [place] [address] Oct, [facility] [place] [facility] [address] [id number] [place] [address] Oct, [facility] [place] [facility] [address] [id number], [place] [address] Oct, [facility] [place] [facility] [address] [id number], [place] [address] Oct, [facility] [place] [facility] [address] [id number] [place] [address] Oct, [facility] [place] [facility] [address] [id number], [place] [address] Oct, [facility] [place] [facility] [address] [id number], [place] [address] Oct, [facility] [place] [facility] [address] [id number] [place] [address] Oct, [facility] [place] [facility] [address] [id number] [place] [address] Oct, [facility] [place] [facility] [address] [id number] [place] [address] Oct, [facility] [place] [facility] [address] [id number] [place] [address] Oct, [facility] [place] [facility] [address] [id number] [place] [address] Sep, [facility] [place] [facility] [address] [id number] [place] [address] Sep, [facility] [place] [facility] [address] [id number] [place] [address] Sep, [facility] [place] [facility] [address] [id number] [place] [address] Sep, [facility] [place] [facility] [address] [id number] [place] [address] Jul, [facility] [place] [facility] [address] [id number] [place] [address] Jul, [facility] [place] [facility] [address] [id number] [place] [address] Jul, [facility] [place] [facility] [address] [id number] [place] [address] Jul, [facility] [place] [facility] [address] [id number] [place] [address] Jun, [facility] [place] [facility] [address] [id number] [place] [address] Jun, [facility] [place] [facility] [address] [id number] [place] [address] Jun, [facility] [place] [facility] [address] [id number] [place] [address] Jun, [facility] [place] [facility] [address] [id number] [place] [address] May, [facility] [place] [facility] [address] [id number] [place] [address] May, [facility] [place] [facility] [address] [id number] [place] [address] April, [facility] [place] [facility] [address] [id number] [place] [address] April, [facility] [address] [id number] [place] [address] April, [facility] [place] [facility] [address] [id number] [place] [address] April, [facility] [address] [id number] [place] [address] [address], [facility] [address] [id number] [place] [address] April, [facility] [address] [id number] [place] [address] April, [facility] [place] [facility] [address] [id number] [place] [address] April, [facility] [place] [facility] [address] [id number] [place] [address] April, [facility] [place] [facility] [address] [id number] [place] [address] Mar, [facility] [place] [facility] [address] [id number] [place] [address] Mar, [facility] [place] [facility] [address] [id number] [place] [address] Mar, [facility] [place] [facility] [address] [id number] [place] [address] Mar, [facility] [place] [facility] [address] [id number], [place] [address] Jan, [facility] [place] [facility] [address] [id number] [place] [address] 95[address] Jan, [facility] [place] [facility] [address] [id number] [place] [address] Jan, [facility] [place] [facility] [address] [id number] [place] [address]- [address] Jan, [facility] [place] [facility] [address] [id number] [place] [address] Jan, [facility] [place] [facility] [address] [id number] [place] [address]- 2848 Jan, [facility] [place] [facility] [address] [id number] [place] [address]- [address] Jan, [facility] [place] [facility] [address] [facility] [id number] [place] [address] 2099 Jan, [facility] [place] [facility] [address] [id number] [place] [address] 39[address] Jan, [facility] [place] [facility] [address] [id number] [place] [address]- 83[address] Jan, [facility] [place] [facility] [address] [id number] [place] [address]- 4110 Jan, [facility] [place] [facility] [address] [id number] [place] [address]- 29[address] Jan, [facility] [place] [facility] [address] [id number], [place] [address] Dec, [facility] [place] [facility] [address] [id number] [place] [address]- [address] Dec, [facility] [place] [facility] [address] [id number] [place] [address]- 1471 Dec, [facility] [place] [facility] [address] [facility] [id number] [place] [address]- [address] Dec, [facility] [place] [facility] [address] [id number] [place] [address]95 Nov, [facility] [place] [facility] [address] [id number] [place] [address] Nov, [facility] [place] [facility] [address] [id number] [place] [address] Nov, [facility] [place] [facility] [address] [id number] [place] [address]- 0966 Nov, [facility] [place] [facility] [address] [id number] [place] [address] 49[address] Oct, [facility] [place] [facility] [address] [id number] [place] [address]25 Oct, [facility] [place] [facility] [address] [id number] [place] [address] 98[address] Sep, [facility] [place] [facility] [address] [id number] [place] [address]- [address] Sep, [facility] [place] [facility] [address] [id number] [place] [address] Jul, [facility] [place] [facility] [address] [id number] [place] [address]- [address] Jul, [facility] [place] [facility] [address] [id number] [place] [address]- 6067 Jun, [facility] [place] [facility] [address] [id number] [place] [address]- 2817 Jun, [facility] [place] [facility] [address] [id number] [place] [address] Jun, [facility] [place] [facility] [address] [id number] [place] [address]- [address]117 May, [facility] [place] [facility] [address] [id number] [place] [address]- 8938 May, [facility] [place] [facility] [address] [id number] [place] [address] 7[address] May, [facility] [address] [id number] [place] [address]- [address]99 May, [facility] [address] [id number] [place] [address]- 6818 May, [facility] [address] [id number] [place] [address] 6940 April, [facility] [place] [facility] [address] [id number] [place] [address]- [address] April, [facility] [address] [id number] [place] [address] April, [facility] [address] [id number] [place] [address] 0296 April, [facility] [address] [id number] [place] [address]- 0746 April, [facility] [place] [facility] [address] [id number] [place] [address]- 0881 April, [facility] [address] [id number] [place] [address]326 Mar, [facility] [place] [facility] [address] [id number] [place] [address] 6050 Mar, [facility] [place] [facility] [address] [id number], [place] [address] Jan, [facility] [place] [facility] [address] [id number], [place] [address] Jan, [facility] [place] [facility] [address] [id number] [place] [address]- 2537 Jan, [facility] [place] [facility] [address] [id number] [place] [address]- 7146 Jan, [facility] [place] [facility] [address] [id number] [place] [address]- 5829 Jan, [facility] [place] [facility] [address] [id number] [place] [address] 2546 12 Jan, 2012 [facility] [address] [id number] [place] [address] 2546 05 Jan, 2012 [facility] [place] [facility] [address] [id number] [place] [address] 2546 04 Jan, 2012 [facility] [address] [id number] [place] [address] 2546 Jan, 2012 [facility] [place] [facility] [address] [id number] [place] [address] 2546 Jan, 2012 [facility] [place] [facility] [address] [id number] [place] [address] 1946 Jan, [facility] [address] [id number] [place] [address]- 7883 Dec, [facility] [address] [id number] [place] [address]- 6135 Nov, [facility] [address] [id number] [place] [address] 2547 Nov, [facility] [address] [id number] [place] [address] [address], [facility] [address] [id number] [place] [address] 2546 Nov, [facility] [place] [facility] [address] [id number] [place] [address] 2546 Nov, [facility] [place] [facility] [address] [id number] [place] [address] 2546 Nov, [facility] [place] [facility] [address] [id number] [place] [address] 2546 Nov, [facility] [place] [facility] [address] [id number] [place] [address] 2546 Nov, [facility] [place] [facility] [address] [id number] [place] [address]- 1019 Nov, [facility] [place] [facility] [address] [id number] [place] [address]- 0857 Nov, [facility] [place] [facility] [address] [id number] [place] [address]- 1567 Nov, [facility] [place] [facility] [address] [facility] [id number] [place] [address]- 9121 Nov, [facility] [place] [facility] [address] [id number] [place] [address]- 3732 Nov, [facility] [place] [facility] [address] [id number] [place] [address]- 4917 Oct, [facility] [place] [facility] [address] [id number] [place] [address], [place] [address]- [address]118 Oct, [facility] [place] [facility] [address] [facility] [id number] [place] [address]- 3036 Oct, [facility] [place] [facility] [address] [id number], [place] [address]- 3578 Sep, [facility] [place] [facility] [address] [id number] [place] [address]- 3288 Sep, [facility] [place] [facility] [address] [facility] [id number], [place] [address]- 7211 Sep, [facility] [place] [facility] [address] [facility] [id number], [place] [address]- 9324 Sep, [facility] [place] [facility] [address] [id number], [place] [address]- 5125 27 Aug, 2012 [facility] [place] [facility] [address] [id number] [place] [address]- 7514 Aug, [facility] [place] [facility] [address] [facility] [id number], [place] [address]- [address] 24 Jul, 2012 [facility] [place] [facility] [address] [facility] [id number], [place] [address]- 6986 May, [facility] [place] [facility] [address] [id number] [place] [address]- 6670 14 May, 2012 [facility] [address] [id number] [place] [address]- [address] 14 May, 2012 [facility] [place] [facility] [address] [id number] [place] [address]- 7903 April, [facility] [address] [id number] [place] [address]- 6081 Mar, [facility] [place] [facility] [address] [id number] [place] [address]- 9938 Mar, [facility] [address] [id number] [place] [address]- 5547 Mar, [facility] [place] [facility] [address] [id number] [place] [address]- 9784 Jan, [facility] [address] [id number] [place] [address]- 1915 Jan, [facility] [place] [facility] [address] [id number] [place] [address]- 7835 Jan, [facility] [place] [facility] [address] [id number] [place] [address]- 6819 Dec, [facility] [address] [id number] [place] [address]- 4654 Dec, [facility] [place] [facility] [address] [id number] [place] [address]- 8935 Dec, [facility] [place] [facility] [address] [id number] [place] [address]- 7814 Dec, [facility] [place] [facility] [address] [id number] [place] [address]- 4785 Nov, [facility] [place] [facility] [address] [id number] [place] [address]- 3657 Nov, [facility] [place] [facility] [address] [id number] [place] [address]- 7972 Nov, [facility] [place] [facility] [address] [id number] [place] [address]- 8528 Oct, [facility] [place] [facility] [address] [id number] [place] [address]- 3359 31 Sep, 2011 [facility] [place] [facility] [address] [id number] [place] [address] 26 Sep, 2011 [facility] [place] [facility] [address] [id number] [place] [address], [place] [address]- 9494 13 Sep, 2011 [facility] [address] [id number] [place] [address]- 9176 15 Nov, 2010 [facility] [place] [facility] [address] [id number] [place] [address]- 2471 23 Oct, 2010 [facility] [address] [id number] [place] [address]- 6647 Oct, [facility] [place] [facility] [address] [id number] [place] [address]- 0232 Oct, [facility] [place] [facility] [address] [id number] [place] [address]- 2854 16 Oct, 2010 [facility] [place] [facility] [address] [id number] [place] [address]- 6473 Sep, [facility] [place] [facility] [address] [id number] [place] [address]- 3702 April, [facility] [place] [facility] [address] [id number] [place] [address]- 0600 29 Nov, 2009 [facility] [place] [facility] [address] [id number] [place] [address]- 2078 24 Nov, 2009 [facility] [place] [facility] [address] [id number] [place] [address]- 0509 22 Nov, 2009 [facility] [place] [facility] [address] [id number] [place] [address]- 9999 10 Nov, 2009 [facility] [place] [facility] [address] [id number] [place] [address]- 2546 Nov, [facility] [address] [facility] [id number] [place] [address] 2546 Oct, [facility] [address] [facility] [id number], [place] [address]- 2546 Oct, [facility] [address] [facility] [id number], [place] [address]- 2546 Sep, [facility] [address] [facility] [id number], [place] [address]- 2546 Jan, IMMUNIZATIONS No Known Immunizations SOCIAL HISTORY Never Assessed REASON FOR VISIT request for sleep med PLAN OF CARE VITAL SIGNS MEDICATIONS Medication Instructions Dosage Frequency Start Date End Date Duration Status Ambien 5 mg Orally Once a day 1 tablet at bedtime 24h Sep, 30 days Active Sertraline HCl 100 MG Orally Once a day 1 tablet 24h 30 days Active RESULTS No Results PROCEDURES No Known procedures INSTRUCTIONS MEDICATIONS ADMINISTERED No Known Medications MEDICAL (GENERAL) HISTORY Type Description Date Medical History Hypertension Medical History Heart disease CABG X3 Stress test 07/2015 Medical History Gastric ulcer Medical History Hyperlipidemia Medical History Headache syndrome Medical History Psychiatric disorders-depression/racing thoughts Medical History Depression Medical History At [facility] 04/2016 Started on Eliquis Medical History Anemia 04/2016 postsurgical hip fx Surgical History right hip replacement w/ Dr. Bruce 2011 Surgical History triple bypass surgery 2003 Surgical History S/P left hip IM Nail (Intertrechanteric hip fx) 04/28/16 Hospitalization History surgeries Hospitalization History Hypertension Hospitalization History ER for a concussion 11/24/15 Hospitalization History Intertrechanteric hip fx 04/27/16 Hospitalization History [facility] (inpatient [facility] 2 times) Hx of 3 inpatient psych treatments in past in [place] oct 2016 [facility]
--- OUTSIDE RECORDS SUMMARY | 2018-08-20 13:14 | XMS REPORT | Continuity of Care Document ---
Author Author [facility] Address Unknown Phone Unavailable Allergies Active Description Code Type Severity Reaction Onset Reported/Identified Relationship to Patient Clinical Status Yes CLINDAMYCIN PHOSPHATE CLINDAMYCIN PHOSPHAT SEVERE Yes MORPHINE MORPHINE SEVERE Yes CLINDAMYCIN PHOSPHATE SEVERE UNKNOWN Yes MORPHINE SEVERE UNKNOWN Yes NKANo Known Allergies NKA Miscellaneous Allergy Unknown N/A 10/07/2006 Yes morphine [id number] Drug Allergy Unknown N/A 04/28/2016 Medications Medication Packaging Start Date Stop Date Route Dosage Sig SUCRALFATE TAB 1 GM (CARAFATE) GM 10/17/2016 11/16/2016 W Meals & HS ACETAMINOPHEN TAB 500 MG (TYLENOL) MG 10/17/2016 11/16/2016 PRN Q4H CEFUROXIME TAB 250 MG (CEFTIN) MG 10/17/2016 10/24/2016 BID&0800,2000 LUBIPROSTONE CAP 8 MCG (AMITIZA) MCG 10/17/2016 11/16/2016 BID&0800,2000 POLYETHYLENE GLYCOL POWDER UD PWD 0 (MIRALAX 17GM UNIT DOSE PAKS) gm 10/19/2016 11/17/2016 Daily&0900 DESVENLAFAXINE TAB 50 MG (PRISTIQ) MG 10/19/2016 11/17/2016 QHS&2000 Dronabinol (MARINOL) 2.5mg capsule MG 10/20/2016 10/20/2016 ONCE&1300 Dronabinol (MARINOL) 2.5mg capsule MG 10/20/2016 10/23/2016 AC&0630,1130,1630 SELENIUM SULF SHAMPOO TOP 1 % (SELSUN BLUE SHAMPOO) JL 10/22/2016 11/21/2016 PRN Q48H Fluarix Quad 4051-9958 (PF) (Influenza [id number] 36mos up(PF)) IM syringe ML 10/22/2016 10/22/2016 ONCE&0912 VITAMIN D-3 TAB 1000 UNITS (VITAMIN D-3) UNITS 10/23/2016 11/21/2016 Daily&0900 Dronabinol (MARINOL) 2.5mg capsule MG 10/23/2016 11/02/2016 EVERY 8 Hour&0630,1130,1630 Dronabinol (MARINOL) 2.5mg capsule MG 10/24/2016 10/27/2016 AC&0630,1130,1630 FLUCONAZOLE TAB 100 MG (DIFLUCAN) MG 10/24/2016 10/26/2016 Daily&0900 TERCONAZOLE-7 VAG CRM CRM 0.4 % (TERAZOL-7) jl 10/24/2016 10/30/2016 QHS&2100 CALMOSEPTINE OINT TUBE OINT 0 (RISAMINE OINT TUBE) jl 10/25/2016 11/01/2016 PRN QID LOPERAMIDE CAP 2 MG (IMMODIUM) MG 10/25/2016 11/01/2016 PRN QID MILK OF MAGNESIA LIQ 0 ml 201511/01/2016 PRN BID ALUM/MAG/SIMETH 30CC LIQ 0 (MYLANTA PLUS) cc 10/27/2016 11/06/2016 PRN Q4H MELATONIN TAB 3 MG (MELATONIN) MG 10/30/2016 11/06/2016 PRN QHS TRAZODONE TAB 50 MG (DESYREL) MG 11/05/2016 QHS&2100 POLYETHYLENE GLYCOL POWDER UD PWD 0 (MIRALAX 17GM UNIT DOSE PAKS) gm 10/31/2016 11/07/2016 BID&0800,2000 POLYETHYLENE GLYCOL POWDER UD PWD 0 (MIRALAX 17GM UNIT DOSE PAKS) gm 10/31/2016 11/10/2016 PRN Q3H BISACODYL SUPPOS SUP 10 MG (DULCOLAX SUPPOS) MG 11/01/2016 11/08/2016 PRN Daily CALMOSEPTINE OINT TUBE OINT 0 (RISAMINE OINT TUBE) jl 11/01/2016 11/11/2016 PRN QID LOPERAMIDE CAP 2 MG (IMMODIUM) MG 11/01/2016 11/11/2016 PRN QID Dronabinol (MARINOL) 2.5mg capsule MG 11/02/2016 11/04/2016 AC&0630,1130,1630 SUCRALFATE TAB 1 GM (CARAFATE) GM 11/02/2016 11/16/2016 ACHS&0630,1130,1630,2100 MILK OF MAGNESIA LIQ 0 ml 201511/09/2016 PRN BID Dronabinol (MARINOL) 2.5mg capsule MG 11/02/2016 11/12/2016 EVERY 8 Hour&0330,1130,1930 CALMOSEPTINE OINT TUBE OINT 0 (RISAMINE OINT TUBE) jl 11/12/2016 11/22/2016 PRN QID ACETAMINOPHEN ORAL TABLET 325mg(Tylenol) MG 03/09/2017 03/19/2017 PRN EVERY 6 Hour ALUM/MAG/SIMETH 30CC LIQ 0 (MYLANTA PLUS) cc 03/09/2017 03/18/2017 PRN Q4H POLYETHYLENE GLYCOL POWDER UD PWD 0 (MIRALAX 17GM UNIT DOSE PAKS) gm 03/09/2017 04/08/2017 PRN Q3H NAPROXEN TAB 500 MG (NAPROSYN) MG 03/09/2017 04/08/2017 PRN BID CALMOSEPTINE OINT TUBE OINT 0 (RISAMINE OINT TUBE) jl 03/09/2017 04/08/2017 PRN QID LOPERAMIDE CAP 2 MG (IMMODIUM) MG 03/09/2017 04/08/2017 PRN QID LACTULOSE SYRUP LIQ 20 GM/30CC (CHRONULAC SYRUP) GM 03/09/2017 04/08/2017 PRN BID MILK OF MAGNESIA LIQ 0 ml 201603/16/2017 PRN BID SERTRALINE TAB 50 MG (ZOLOFT) MG 04/07/2017 Daily&0900 BISACODYL SUPPOS SUP 10 MG (DULCOLAX SUPPOS) MG 03/09/2017 04/08/2017 PRN Daily MELATONIN TAB 3 MG (MELATONIN) MG 03/09/2017 04/08/2017 PRN QHS TRAZODONE TAB 50 MG (DESYREL) MG 04/08/2017 PRN QHS LORAZEPAM 1CC VIAL INJ 2 MG/CC (ATIVAN VIAL) MG 03/11/2017 03/11/2017 PRN ONCE LORAZEPAM TAB 1 MG (ATIVAN) MG 09/201704/10/2017 BID&0800,1999 LORAZEPAM 1CC VIAL INJ 2 MG/CC (ATIVAN VIAL) MG 03/11/2017 04/10/2017 BID&0800,1999 Dronabinol (MARINOL) 2.5mg capsule MG 03/12/2017 03/22/2017 AC&0600,1130,1630 LORAZEPAM TAB 1 MG (ATIVAN) MG 10/201703/19/2017 BID&0600,1999 LORAZEPAM 1CC VIAL INJ 2 MG/CC (ATIVAN VIAL) MG 03/12/2017 03/19/2017 BID&0600,1999 Rivastigmine TD Patch 24 hour 4.6mg (EXELON) MG 03/13/2017 03/22/2017 Daily&0900 POLYETHYLENE GLYCOL POWDER UD PWD 0 (MIRALAX 17GM UNIT DOSE PAKS) gm 03/14/2017 03/24/2017 BID&0800,1999 CITALOPRAM TAB 10 MG (CELEXA) MG 04/13/2017 Daily&0900 LORAZEPAM TAB 1 MG (ATIVAN) MG 03/17/2017 ONCE&0800 LORAZEPAM TAB 1 MG (ATIVAN) MG 03/17/2017 PRN ONCE ASA 81MG ENTERIC COATED TAB 81 MG (BABY ASPIRIN EC) MG 03/18/2017 04/16/2017 Daily&0900 ACETAMINOPHEN ORAL TABLET 325mg(Tylenol) MG 03/19/2017 03/29/2017 PRN EVERY 6 Hour LORAZEPAM TAB 1 MG (ATIVAN) MG 03/29/2017 BID&0600,1999 LORAZEPAM 1CC VIAL INJ 2 MG/CC (ATIVAN VIAL) MG 03/20/2017 03/29/2017 BID&0600,1999 LORAZEPAM TAB 1 MG (ATIVAN) MG 03/29/2017 BID&0800,1999 LORAZEPAM 1CC VIAL INJ 2 MG/CC (ATIVAN VIAL) MG 03/20/2017 03/29/2017 BID&0800,1999 CITALOPRAM TAB 10 MG (CELEXA) MG 04/19/2017 Daily&0900 OLANZAPINE DISSOLVABLE TAB 5 MG (ZYPREXA ZYDIS) MG 03/22/2017 04/20/2017 BID&0800,2000 Dronabinol (MARINOL) 2.5mg capsule MG 03/22/2017 04/01/2017 AC&0600,1130,1630 Rivastigmine TD Patch 24 hour 4.6mg (EXELON) MG 03/23/2017 04/01/2017 Daily&0900 POLYETHYLENE GLYCOL POWDER UD PWD 0 (MIRALAX 17GM UNIT DOSE PAKS) gm 03/24/2017 04/03/2017 BID&0800,2000 TRAZODONE TAB 50 MG (DESYREL) MG 04/03/2017 QHS&2100 NORMAL SALINE 1000CC IV BAG INJ 0.9 % (NS 1000CC IV BAG) ml 12/13/2017 12/13/2017 ONCE&1006 NAPROXEN TAB 500 MG (NAPROSYN) MG 12/13/2017 01/12/2018 PRN Q12H ACETAMINOPHEN ORAL TABLET 325mg(Tylenol) MG 12/13/2017 12/20/2017 PRN EVERY 6 Hour LACTOBACILLUS BULGARIS TAB (LACTINEX BULGARIS) tab 12/13/2017 01/12/2018 BID&0800,2000 OLANZAPINE TAB 2.5 MG (ZYPREXA) MG 12/13/2017 01/12/2018 BID&0800,2000 MILK OF MAGNALETHEA LIQ ml 12/13/2017 12/20/2017 PRN BID CLONAZEPAM TAB 0.5 MG (KLONOPIN) MG 12/13/2017 01/11/2018 QHS&2100 MELATONIN TAB 3 MG (MELATONIN) MG 12/13/2017 01/12/2018 PRN QHS TRAZODONE TAB 50 MG (DESYREL) MG 12/19/2017 PRN QHS POLYETHYLENE GLYCOL POWDER UD PWD (MIRALAX 17GM UNIT DOSE PAKS) gm 12/13/2017 12/23/2017 PRN Q3H TRAZODONE TAB 50 MG (DESYREL) MG 01/12/2018 PRN QHS OLANZAPINE TAB 2.5 MG (ZYPREXA) MG 12/13/2017 12/13/2017 ONCE&2151 CALMOSEPTINE OINT TUBE (RISAMINE OINT) jl 12/13/2017 12/20/2017 PRN QID LOPERAMIDE CAP 2 MG (IMMODIUM) MG 12/13/2017 12/20/2017 PRN QID ALUM/MAG/SIMETH 30CC LIQ (MYLANTA PLUS) cc 12/13/2017 12/23/2017 PRN Q4H PANTOPRAZOLE TAB 40 MG (PROTONIX) MG 12/14/2017 01/12/2018 Daily&0900 ASA 81MG ENTERIC COATED TAB 81 MG (BABY ASPIRIN EC) Dose(s) 12/14/2017 01/12/2018 Daily&0900 OLANZAPINE TAB 2.5 MG (ZYPREXA) MG 12/14/2017 01/12/2018 Daily&0900 POLYETHYLENE GLYCOL POWDER UD PWD 0 (MIRALAX 17GM UNIT DOSE PAKS) gm 12/14/2017 01/12/2018 Daily&0900 CITALOPRAM TAB 20 MG (CELEXA) MG 01/12/2018 Daily&0900 Rivastigmine TD Patch 24 hour 4.6mg (EXELON) MG 12/14/2017 01/12/2018 Daily&0900 BISACODYL SUPPOS SUP 10 MG (DULCOLAX SUPPOS) MG 12/14/2017 12/20/2017 PRN Daily OLANZAPINE TAB 2.5 MG (ZYPREXA) MG 12/14/2017 01/13/2018 BID&0800,2000 LACTULOSE SYRUP LIQ 20 GM/30CC (CHRONULAC SYRUP) GM 12/15/2017 01/13/2018 BID&0800,2000 FOLIC ACID TAB 1 MG MG 12/15/2017 01/13/2018 Daily& 0900 VITAMIN D-3 TAB 1000 UNITS (VITAMIN D-3) UNITS 12/15/2017 01/13/2018 Daily&0900 POLYETHYLENE GLYCOL POWDER UD PWD (MIRALAX 17GM UNIT DOSE PAKS) gm 12/15/2017 01/13/2018 Daily&1900 OLANZAPINE TAB 5 MG (ZYPREXA) MG 01/14/2018 BID&0800,2000 CLONAZEPAM TAB 0.5 MG (KLONOPIN) MG 12/15/2017 12/16/2017 QHS&2100 LORAZEPAM TAB 0.5 MG (ATIVAN) MG 01/16/2018 PRN Q6H HALOPERIDOL TAB 0.5 MG (HALDOL) MG 12/17/2017 01/16/2018 PRN Q6H Haloperidol 0.25mg (Haldol) oral tablet MG 12/17/2017 12/27/2017 PRN Q6H OLANZAPINE TAB 2.5 MG (ZYPREXA) MG 12/17/2017 01/16/2018 PRN Q6H OLANZAPINE TAB 5 MG (ZYPREXA) MG 01/16/2018 BID&0800,2000 OLANZAPINE TAB 2.5 MG (ZYPREXA) MG 12/17/2017 01/15/2018 QHS&2100 MIRTAZAPINE TAB 15 MG (REMERON) MG 12/17/2017 01/15/2018 QHS&2100 LACTULOSE SYRUP LIQ 20 GM/30CC (CHRONULAC SYRUP) GM 12/18/2017 01/16/2018 QAM&0800 MIRTAZAPINE TAB 15 MG (REMERON) MG 12/20/2017 01/18/2018 QHS&2100 OLANZAPINE TAB 10 MG (ZYPREXA) MG 12/23/2017 01/21/2018 QHS&2100 PANTOPRAZOLE TAB 40 MG (PROTONIX) MG 12/24/2017 01/22/2018 QHS&2100 LACTOBACILLUS BULGARIS TAB (LACTINEX BULGARIS) tab 12/24/2017 01/22/2018 QHS&2100 ASPIRIN 81MG CHEWABLE TAB 81 MG (BABY ASPIRIN) MG 12/24/2017 01/22/2018 QHS&2100 FOLIC ACID TAB 1 MG MG 12/24/2017 01/22/2018 QHS&2100 VITAMIN D-3 TAB 1000 UNITS (VITAMIN D-3) UNITS 12/24/2017 01/22/2018 QHS&2100 ACETAMINOPHEN ORAL TABLET 325mg(Tylenol) MG 12/25/2017 01/01/2018 PRN EVERY 6 Hour CITALOPRAM TAB 20 MG (CELEXA) MG 01/23/2018 QHS&2100 QUETIAPINE TAB 25 MG (SEROQUEL) MG 12/26/2017 01/25/2018 PRN Q6H QUETIAPINE TAB 25 MG (SEROQUEL) MG 12/26/2017 01/24/2018 QHS&2100 POLYETHYLENE GLYCOL POWDER UD PWD (MIRALAX 17GM UNIT DOSE PAKS) gm 12/28/2017 01/27/2018 PRN Q3H BISACODYL SUPPOS 10 MG (DULCOLAX SUPPOS) MG 12/29/2017 01/05/2018 PRN Daily Problems Date Dx Coded Attending Type Code Diagnosis Diagnosed By 09/01/2008 462 Pharyngitis Acute 09/01/2008 787.91 Diarrhea 09/01/2008 462 Pharyngitis Acute 09/01/2008 787.91 Diarrhea 09/01/2008 LJ DDS, KAELA F 462 Pharyngitis Acute 09/01/2008 LJ DDS, KAELA F 787.91 Diarrhea 09/01/2008 HUSAM ORLANDO APRN 462 [...] JUAREZ GREEN DDS 787.91 Diarrhea 09/01/2008 NORMA MARTINES, JUAREZ Pierre 462 Pharyngitis Acute 09/01/2008 JUAREZ GREEN DDS 787.91 Diarrhea 09/01/2008 MORAIMA NICOLE DO 462 Pharyngitis Acute 09/01/2008 MORAIMA NICOLE DO 787.91 Diarrhea 09/01/2008 WOLF AGUIRRE APRN 462 Pharyngitis Acute 09/01/2008 WOLF AGUIRRE APRN 787.91 Diarrhea 09/01/2008 TIMOTHY AUDIO VISUAL ENGINEER, WOLF S 462 Pharyngitis Acute 09/01/2008 TIMOTHY AUDIO VISUAL ENGINEER, WOLF S 787.91 Diarrhea 09/01/2008 TIMOTHY AUDIO VISUAL ENGINEER, WOLF S 462 Pharyngitis Acute 09/01/2008 TIMOTHY AUDIO VISUAL ENGINEER, WOLF S 787.91 Diarrhea 09/01/2008 TIMOTHY AUDIO VISUAL ENGINEER, WOLF S 462 Pharyngitis Acute 09/01/2008 TIMOTHY AUDIO VISUAL ENGINEER, WOLF S 787.91 Diarrhea 09/01/2008 TIMOTHY AUDIO VISUAL ENGINEER, WOLF S 462 Pharyngitis Acute 09/01/2008 TIMOTHY AUDIO VISUAL ENGINEER, WOLF S 787.91 Diarrhea 09/01/2008 WHITE DDS, MELISSA J 462 Pharyngitis Acute 09/01/2008 WHITE DDS, MELISSA J 787.91 Diarrhea 09/01/2008 TAN DDS, MARIA LUISA 462 Pharyngitis Acute 09/01/2008 TAN DDS, MARIA LUISA 787.91 Diarrhea 09/01/2008 JOHANNY GAINESN, HUSAM T 462 Pharyngitis Acute 09/01/2008 JOHANNY AUDIO VISUAL ENGINEER, HUSAM T 787.91 Diarrhea 09/01/2008 TIMOTHY AUDIO VISUAL ENGINEER, WOLF S 462 Pharyngitis Acute 09/01/2008 TIMOTHY AUDIO VISUAL ENGINEER, WOLF S 787.91 Diarrhea 09/01/2008 TIMOTHY AUDIO VISUAL ENGINEER, WOLF S 462 Pharyngitis Acute 09/01/2008 TIMOTHY AUDIO VISUAL ENGINEER, WOLF S 787.91 Diarrhea 09/01/2008 CASSIE DOMINGUEZ, KADY Raymundo 462 Pharyngitis Acute 09/01/2008 CASSIE DOMINGUEZ, KADY Raymundo 787.91 Diarrhea 09/01/2008 TIMOTHY AUDIO VISUAL ENGINEER, WOLF S 462 Pharyngitis Acute 09/01/2008 TIMOTHY AUDIO VISUAL ENGINEER, WOLF S 787.91 Diarrhea 09/01/2008 TIMOTHY AUDIO VISUAL ENGINEER, WOLF S 462 Pharyngitis Acute 09/01/2008 TIMOTHY AUDIO VISUAL ENGINEER, WOLF S 787.91 Diarrhea 09/01/2008 TAN DDS, MARIA LUISA 462 Pharyngitis Acute 09/01/2008 TAN DDS, MARIA LUISA 787.91 Diarrhea 09/01/2008 MAX DDS, KATHYA Chopra 462 Pharyngitis Acute 09/01/2008 MAX DDS, KATHYA Chopra 787.91 Diarrhea 02/11/2009 695.3 Rosacea 02/11/2009 695.3 Rosacea 02/11/2009 LJ DDS, KAELA Rdz 695.3 Rosacea 02/11/2009 HUSAM ORLANDO APRN 695.3 Rosacea 02/11/2009 TIMOTHY KAN, WOLF S 695.3 Rosacea 02/11/2009 695.3 Rosacea 02/11/2009 NICOLE DO, MORAIMA K 695.3 Rosacea 02/11/2009 695.3 Rosacea 02/11/2009 695.3 Rosacea 02/11/2009 695.3 Rosacea 02/11/2009 695.3 Rosacea 02/11/2009 NORMA WILCOXS, JUAREZ Pierre 695.3 Rosacea 02/11/2009 NORMA DDS, JUAREZ Pierre 695.3 Rosacea 02/11/2009 NICOLE DO, MORAIMA K 695.3 Rosacea 02/11/2009 TIMOTHY KAN, WOLF S 695.3 Rosacea 02/11/2009 TIMOTHY KAN, WOLF S 695.3 Rosacea 02/11/2009 TIMOTHY KAN, WOLF S 695.3 Rosacea 02/11/2009 TIMOTHY KAN, WOLF S 695.3 Rosacea 02/11/2009 TIMOTHY GAINESN, WOLF S 695.3 Rosacea 02/11/2009 GAGANDEEP WILCOXS, MELISSA Raymundo 695.3 Rosacea 02/11/2009 BRITNEY WILCOXS, MARIA LUISA 695.3 Rosacea 02/11/2009 HUSAM ORLANDO APRN 695.3 Rosacea 02/11/2009 TIMOTHY KAN, WOLF S 695.3 Rosacea 02/11/2009 TIMOTHY KAN, WOLF S 695.3 Rosacea 02/11/2009 CASSEI DOMINGUEZ, KADY Raymundo 695.3 Rosacea 02/11/2009 TIMOTHY GAINESN, WOLF S 695.3 Rosacea 02/11/2009 TIMOTHY GAINESN, WOLF S 695.3 Rosacea 02/11/2009 BRITNEY WILCOXS, MARIA LUISA 695.3 Rosacea 02/11/2009 MAX DDS, KATHYA Chopra 695.3 Rosacea 03/31/2009 008.62 Gastroenteritis Viral Adenovirus 03/31/2009 008.62 Gastroenteritis Viral Adenovirus 03/31/2009 LJ DDS, KAELA Rdz 008.62 Gastroenteritis Viral Adenovirus 03/31/2009 HUSAM ORLANDO APRN 008.62 Gastroenteritis Viral Adenovirus 03/31/2009 TIMOTHYSTARLA KAN, WOLF S 008.62 Gastroenteritis Viral Adenovirus 03/31/2009 008.62 Gastroenteritis Viral Adenovirus 03/31/2009 MORAIMA NICOLE DO 008.62 Gastroenteritis Viral Adenovirus 03/31/2009 008.62 Gastroenteritis Viral Adenovirus 03/31/2009 008.62 Gastroenteritis Viral Adenovirus 03/31/2009 008.62 Gastroenteritis Viral Adenovirus 03/31/2009 008.62 Gastroenteritis Viral Adenovirus 03/31/2009 NORMA DDS, JUAREZ Gabby 008.62 Gastroenteritis Viral Adenovirus 03/31/2009 NORMA DDS, JUAREZ Pierre 008.62 Gastroenteritis Viral Adenovirus 03/31/2009 MORAIMA NICOLE DO 008.62 Gastroenteritis Viral Adenovirus 03/31/2009 TIMOTHYSTARLA GAINESN, WOLF S 008.62 Gastroenteritis Viral Adenovirus 03/31/2009 TIMOTHY AUDIO VISUAL ENGINEER, WOLF S 008.62 Gastroenteritis Viral Adenovirus 03/31/2009 TIMOTHY AUDIO VISUAL ENGINEER, WOLF S 008.62 Gastroenteritis Viral Adenovirus 03/31/2009 TIMOTHY AUDIO VISUAL ENGINEER, WOLF S 008.62 Gastroenteritis Viral Adenovirus 03/31/2009 TIMOTHY AUDIO VISUAL ENGINEER, WOLF S 008.62 Gastroenteritis Viral Adenovirus 03/31/2009 GAGANDEEP DDS, MELISSA Raymundo 008.62 Gastroenteritis Viral Adenovirus 03/31/2009 BRITNEY WILCOXS, MARIA LUISA 008.62 Gastroenteritis Viral Adenovirus 03/31/2009 HUSAM ORLANDO APRN 008.62 Gastroenteritis Viral Adenovirus 03/31/2009 TIMOTHY GAINSEN, WOLF S 008.62 Gastroenteritis Viral Adenovirus 03/31/2009 TIMOTHY GAINESN, WOLF S 008.62 Gastroenteritis Viral Adenovirus 03/31/2009 CASSIE DOMINGUEZ, KADY Raymundo 008.62 Gastroenteritis Viral Adenovirus 03/31/2009 TIMOTHY AUDIO VISUAL ENGINEER, WOLF S 008.62 Gastroenteritis Viral Adenovirus 03/31/2009 TIMOTHYSTARLA GAINESN, WOLF S 008.62 Gastroenteritis Viral Adenovirus 03/31/2009 BRITNEY DDS, MARIA LUISA 008.62 Gastroenteritis Viral Adenovirus 03/31/2009 MAX DDS, KATHYA Chopra 008.62 Gastroenteritis Viral Adenovirus 06/29/2009 599.0 Urinary Tract Infection 06/29/2009 599.0 Urinary Tract Infection 06/29/2009 LJ DDS, KAELA F 599.0 Urinary Tract Infection 06/29/2009 HUSAM ORLANDO APRN 599.0 Urinary Tract Infection 06/29/2009 TIMOTHY GAINESN, WOLF S 599.0 Urinary Tract Infection 06/29/2009 599.0 Urinary Tract Infection 06/29/2009 NICOLE DO, MORAIMA K 599.0 Urinary Tract Infection 06/29/2009 599.0 Urinary Tract Infection 06/29/2009 599.0 Urinary Tract Infection 06/29/2009 599.0 Urinary Tract Infection 06/29/2009 599.0 Urinary Tract Infection 06/29/2009 NORMA DDS, JUAREZ M 599.0 Urinary Tract Infection 06/29/2009 NORMA DDS, JUAREZ M 599.0 Urinary Tract Infection 06/29/2009 NICOLE DO, MORAIMA K 599.0 Urinary Tract Infection 06/29/2009 TIMOTHY AUDIO VISUAL ENGINEER, WOLF S 599.0 Urinary Tract Infection 06/29/2009 TIMOTHY GAINESN, WOLF S 599.0 Urinary Tract Infection 06/29/2009 TIMOTHY AUDIO VISUAL ENGINEER, WOLF S 599.0 Urinary Tract Infection 06/29/2009 TIMOTHY AUDIO VISUAL ENGINEER, WOLF S 599.0 Urinary Tract Infection 06/29/2009 TIMOTHY AUDIO VISUAL ENGINEER, WOLF S 599.0 Urinary Tract Infection 06/29/2009 GAGANDEEP DDS, MELISSA Raymundo 599.0 Urinary Tract Infection 06/29/2009 BRITNEY WILCOXS, MARIA LUISA 599.0 Urinary Tract Infection 06/29/2009 HUSAM ORLANDO APRN 599.0 Urinary Tract Infection 06/29/2009 TIMOTHY GAINESN, WOLF S 599.0 Urinary Tract Infection 06/29/2009 TIMOTHY KAN, WOLF S 599.0 Urinary Tract Infection 06/29/2009 CASSIE DOMINGUEZ, KADY Raymundo 599.0 Urinary Tract Infection 06/29/2009 TIMOTHY AUDIO VISUAL ENGINEER, WOLF S 599.0 Urinary Tract Infection 06/29/2009 TIMOTHY GAINESN, WOLF S 599.0 Urinary Tract Infection 06/29/2009 MARIA LUISA TAN DDS 599.0 Urinary Tract Infection 06/29/2009 MAX WILCOXSKATHYA 599.0 Urinary Tract Infection 08/15/2009 272.4 HYPERLIPIDEMIA UNSPECIFIED 08/15/2009 272.4 HYPERLIPIDEMIA UNSPECIFIED 08/15/2009 KAELA CALHOUN DDS 272.4 HYPERLIPIDEMIA UNSPECIFIED 08/15/2009 HUSAM ORLANDO APRN 272.4 HYPERLIPIDEMIA UNSPECIFIED 08/15/2009 TIMOTHY KAN, WOLF S 272.4 HYPERLIPIDEMIA UNSPECIFIED 08/15/2009 272.4 HYPERLIPIDEMIA UNSPECIFIED 08/15/2009 MORAIMA NICOLE DO K 272.4 HYPERLIPIDEMIA UNSPECIFIED 08/15/2009 272.4 HYPERLIPIDEMIA UNSPECIFIED 08/15/2009 272.4 HYPERLIPIDEMIA UNSPECIFIED 08/15/2009 272.4 HYPERLIPIDEMIA UNSPECIFIED 08/15/2009 272.4 HYPERLIPIDEMIA UNSPECIFIED 08/15/2009 JUAREZ GREEN DDS 272.4 HYPERLIPIDEMIA UNSPECIFIED 08/15/2009 JUAREZ GREEN DDS 272.4 HYPERLIPIDEMIA UNSPECIFIED 08/15/2009 LILLIAN NICOLE DOA K 272.4 HYPERLIPIDEMIA UNSPECIFIED 08/15/2009 TIMOTHY GAINESN, WOLF S 272.4 HYPERLIPIDEMIA UNSPECIFIED 08/15/2009 TIMOTHY AUDIO VISUAL ENGINEER, WOLF S 272.4 HYPERLIPIDEMIA UNSPECIFIED 08/15/2009 TIMOTHY AUDIO VISUAL ENGINEER, WOLF S 272.4 HYPERLIPIDEMIA UNSPECIFIED 08/15/2009 TIMOTHY AUDIO VISUAL ENGINEER, WOLF S 272.4 HYPERLIPIDEMIA UNSPECIFIED 08/15/2009 TIMOTHY AUDIO VISUAL ENGINEER, WOLF S 272.4 HYPERLIPIDEMIA UNSPECIFIED 08/15/2009 MELISSA DONIS DDS 272.4 HYPERLIPIDEMIA UNSPECIFIED 08/15/2009 MARIA LUISA TAN DDS 272.4 HYPERLIPIDEMIA UNSPECIFIED 08/15/2009 HUSAM ORLANDO APRN 272.4 HYPERLIPIDEMIA UNSPECIFIED 08/15/2009 TIMOTHY GAINESN, WOLF S 272.4 HYPERLIPIDEMIA UNSPECIFIED 08/15/2009 TIMOTHY GAINESN, WOLF S 272.4 HYPERLIPIDEMIA UNSPECIFIED 08/15/2009 CASSIE DOMINGUEZ, KADY Raymundo 272.4 HYPERLIPIDEMIA UNSPECIFIED 08/15/2009 TIMOTHY AUDIO VISUAL ENGINEER, WOLF S 272.4 HYPERLIPIDEMIA UNSPECIFIED 08/15/2009 TIMOTHY AUDIO VISUAL ENGINEER, WOLF S 272.4 HYPERLIPIDEMIA UNSPECIFIED 08/15/2009 BRITNEY WILCOXS, MARIA LUISA 272.4 HYPERLIPIDEMIA UNSPECIFIED 08/15/2009 MAX DDS, KATHYA Chopra 272.4 HYPERLIPIDEMIA UNSPECIFIED 08/26/2009 558.9 Gastroenteritis Noninfectious 08/26/2009 558.9 Gastroenteritis Noninfectious 08/26/2009 LJ WILCOXS, KAELA Rdz 558.9 Gastroenteritis Noninfectious 08/26/2009 HUSAM ORLANDO APRN 558.9 Gastroenteritis Noninfectious 08/26/2009 TIMOTHY KAN, WOLF S 558.9 Gastroenteritis Noninfectious 08/26/2009 558.9 Gastroenteritis Noninfectious 08/26/2009 MORAIMA NICOLE DO K 558.9 Gastroenteritis Noninfectious 08/26/2009 558.9 Gastroenteritis Noninfectious 08/26/2009 558.9 Gastroenteritis Noninfectious 08/26/2009 558.9 Gastroenteritis Noninfectious 08/26/2009 558.9 Gastroenteritis Noninfectious 08/26/2009 JUAREZ GREEN DDS 558.9 Gastroenteritis Noninfectious 08/26/2009 JUAREZ GREEN DDS 558.9 Gastroenteritis Noninfectious 08/26/2009 MORAIMA NICOLE DO K 558.9 Gastroenteritis Noninfectious 08/26/2009 TIMOTHY GAINESN, WOLF S 558.9 Gastroenteritis Noninfectious 08/26/2009 TIMOTHY GAINESN, WOLF S 558.9 Gastroenteritis Noninfectious 08/26/2009 TIMOTHY AUDIO VISUAL ENGINEER, WOLF S 558.9 Gastroenteritis Noninfectious 08/26/2009 TIMOTHY AUDIO VISUAL ENGINEER, WOLF S 558.9 Gastroenteritis Noninfectious 08/26/2009 TIMOTHY AUDIO VISUAL ENGINEER, WOLF S 558.9 Gastroenteritis Noninfectious 08/26/2009 MELISSA DONIS DDS 558.9 Gastroenteritis Noninfectious 08/26/2009 BRITNEY DDS, MARIA LUISA 558.9 Gastroenteritis Noninfectious 08/26/2009 HUSAM ORLANDO APRN 558.9 Gastroenteritis Noninfectious 08/26/2009 TIMOTHY KAN, WOLF S 558.9 Gastroenteritis Noninfectious 08/26/2009 TIMOTHY KAN, WOLF S 558.9 Gastroenteritis Noninfectious 08/26/2009 CASSIE DOMINGUEZ, KADY Raymundo 558.9 Gastroenteritis Noninfectious 08/26/2009 TIMOTHY KAN, WOLF S 558.9 Gastroenteritis Noninfectious 08/26/2009 TIMOTHY KAN, WOLF S 558.9 Gastroenteritis Noninfectious 08/26/2009 BRITNEY DDS, MARIA LUISA 558.9 Gastroenteritis Noninfectious 08/26/2009 MAX DDS, KATHYA Chopra 558.9 Gastroenteritis Noninfectious 09/07/2009 300.00 Anxiety State , Unspecified 09/07/2009 V58.69 Medication High Risk 09/07/2009 300.00 Anxiety State , Unspecified 09/07/2009 V58.69 Medication High Risk 09/07/2009 LJ DDS, KAELA F 300.00 Anxiety State, Unspecified 09/07/2009 LJ DDS, KAELA F V58.69 Medication High Risk 09/07/2009 HUSAM ORLANDO APRN 300.00 Anxiety State, Unspecified 09/07/2009 HUSAM ORLANDO APRN V58.69 Medication High Risk 09/07/2009 YU AGUIRRE APRNA S 300.00 Anxiety State, Unspecified 09/07/2009 HAFSA AGUIRRE APRNNDA S V58.69 Medication High Risk 09/07/2009 300.00 Anxiety State , Unspecified 09/07/2009 V58.69 Medication High Risk 09/07/2009 NICOLE DOLILLIANA K 300.00 Anxiety State, Unspecified 09/07/2009 NICOLE DOLILLIANA K V58.69 Medication High Risk 09/07/2009 300.00 Anxiety State , Unspecified 09/07/2009 V58.69 Medication High Risk 09/07/2009 300.00 Anxiety State , Unspecified 09/07/2009 V58.69 Medication High Risk 09/07/2009 300.00 Anxiety State , Unspecified 09/07/2009 V58.69 Medication High Risk 09/07/2009 300.00 Anxiety State , Unspecified 09/07/2009 V58.69 Medication High Risk 09/07/2009 NORMA DDS, JUAREZ Pierre 300.00 Anxiety State, Unspecified 09/07/2009 NORMA DDS, JUAREZ Pierre V58.69 Medication High Risk 09/07/2009 NORMA DDS, JUAREZ Pierre 300.00 Anxiety State, Unspecified 09/07/2009 NORMA DDS, JUAREZ Pierre V58.69 Medication High Risk 09/07/2009 NICOLE DO, MORAIMA K 300.00 Anxiety State, Unspecified 09/07/2009 NICOLE DO, MORAIMA K V58.69 Medication High Risk 09/07/2009 TIMOTHY AUDIO VISUAL ENGINEER, WOLF S 300.00 Anxiety State, Unspecified 09/07/2009 TIMOTHY AUDIO VISUAL ENGINEER, WOLF S V58.69 Medication High Risk 09/07/2009 TIMOTHY AUDIO VISUAL ENGINEER, WOLF S 300.00 Anxiety State, Unspecified 09/07/2009 TIMOTHY AUDIO VISUAL ENGINEER, WOLF S V58.69 Medication High Risk 09/07/2009 TIMOTHY AUDIO VISUAL ENGINEER, WOLF S 300.00 Anxiety State, Unspecified 09/07/2009 TIMOTHY AUDIO VISUAL ENGINEER, WOLF S V58.69 Medication High Risk 09/07/2009 TIMOTHY AUDIO VISUAL ENGINEER, WOLF S 300.00 Anxiety State, Unspecified 09/07/2009 TIMOTHY AUDIO VISUAL ENGINEER, WOLF S V58.69 Medication High Risk 09/07/2009 TIMOTHY AUDIO VISUAL ENGINEER, WOLF S 300.00 Anxiety State, Unspecified 09/07/2009 TIMOTHY AUDIO VISUAL ENGINEER, WOLF S V58.69 Medication High Risk 09/07/2009 WHITE DDS, MELISSA J 300.00 Anxiety State, Unspecified 09/07/2009 WHITE DDS, MELISSA J V58.69 Medication High Risk 09/07/2009 TAN DDS, MARIA LUISA 300.00 Anxiety State, Unspecified 09/07/2009 TAN DDS, MARIA LUISA V58.69 Medication High Risk 09/07/2009 HUSAM ORLANDO APRN 300.00 Anxiety State, Unspecified 09/07/2009 HUSAM ORLANDO APRN V58.69 Medication High Risk 09/07/2009 TIMOTHY AUDIO VISUAL ENGINEER, WOLF S 300.00 Anxiety State, Unspecified 09/07/2009 TIMOTHY AUDIO VISUAL ENGINEER, WOLF S V58.69 Medication High Risk 09/07/2009 TIMOTHY AUDIO VISUAL ENGINEER, WOLF S 300.00 Anxiety State, Unspecified 09/07/2009 TIMOTHY AUDIO VISUAL ENGINEER, WOLF S V58.69 Medication High Risk 09/07/2009 CASSIE DOMINGUEZ, KADY Ramyundo 300.00 Anxiety State, Unspecified 09/07/2009 CASSIE DOMINGUEZ, KADY Raymundo V58.69 Medication High Risk 09/07/2009 TIMOTHY AUDIO VISUAL ENGINEER, WOLF S 300.00 Anxiety State, Unspecified 09/07/2009 TIMOTHY AUDIO VISUAL ENGINEER, WOLF S V58.69 Medication High Risk 09/07/2009 TIMOTHY AUDIO VISUAL ENGINEER, WOLF S 300.00 Anxiety State, Unspecified 09/07/2009 TIMOTHY AUDIO VISUAL ENGINEER, WOLF S V58.69 Medication High Risk 09/07/2009 TAN DDS, MARIA LUISA 300.00 Anxiety State, Unspecified 09/07/2009 TAN DDS, MARIA LUISA V58.69 Medication High Risk 09/07/2009 MAX DDS, KATHYA D 300.00 Anxiety State, Unspecified 09/07/2009 MXA DDS, KATHYA D V58.69 Medication High Risk 11/10/2009 719.41 Pain In Joint , Shoulder Region 11/10/2009 719.41 Pain In Joint , Shoulder Region 11/10/2009 KAELA CALHOUN DDS 719.41 Pain In Joint, Shoulder Region 11/10/2009 HUSAM ORLANDO APRN 719.41 Pain In Joint, Shoulder Region 11/10/2009 TIMOTHY AUDIO VISUAL ENGINEER, WOLF S 719.41 Pain In Joint, Shoulder Region 11/10/2009 719.41 Pain In Joint , Shoulder Region 11/10/2009 MORAIMA NICOLE DO 719.41 Pain In Joint, Shoulder Region 11/10/2009 719.41 Pain In Joint , Shoulder Region 11/10/2009 719.41 Pain In Joint , Shoulder Region 11/10/2009 719.41 Pain In Joint , Shoulder Region 11/10/2009 719.41 Pain In Joint , Shoulder Region 11/10/2009 NORMA MARTINES, JUAREZ Pierre 719.41 Pain In Joint, Shoulder Region 11/10/2009 NORMA MARTINES, JUAREZ Pierre 719.41 Pain In Joint, Shoulder Region 11/10/2009 MORAIMA NICOLE DO 719.41 Pain In Joint, Shoulder Region 11/10/2009 TIMOTHY AUDIO VISUAL ENGINEER, WOLF S 719.41 Pain In Joint, Shoulder Region 11/10/2009 TIMOTHY AUDIO VISUAL ENGINEER, WOLF S 719.41 Pain In Joint, Shoulder Region 11/10/2009 TIMOTHY AUDIO VISUAL ENGINEER, WOLF S 719.41 Pain In Joint, Shoulder Region 11/10/2009 TIMOTHY AUDIO VISUAL ENGINEER, WOLF S 719.41 Pain In Joint, Shoulder Region 11/10/2009 TIMOTHY AUDIO VISUAL ENGINEER, WOLF S 719.41 Pain In Joint, Shoulder Region 11/10/2009 MELISSA DONIS DDS 719.41 Pain In Joint, Shoulder Region 11/10/2009 MARIA LUISA TAN DDS 719.41 Pain In Joint, Shoulder Region 11/10/2009 HUSAM ORLANDO APRN 719.41 Pain In Joint, Shoulder Region 11/10/2009 TIMOTHY AUDIO VISUAL ENGINEER, WOLF S 719.41 Pain In Joint, Shoulder Region 11/10/2009 TIMOTHY AUDIO VISUAL ENGINEER, WOLF S 719.41 Pain In Joint, Shoulder Region 11/10/2009 CASSIE DOMINGUEZ, KADY Raymundo 719.41 Pain In Joint, Shoulder Region 11/10/2009 TIMOTHY AUDIO VISUAL ENGINEER, WOLF S 719.41 Pain In Joint, Shoulder Region 11/10/2009 TIMOTHY AUDIO VISUAL ENGINEER, WOLF S 719.41 Pain In Joint, Shoulder Region 11/10/2009 MARIA LUISA TAN DDS 719.41 Pain In Joint, Shoulder Region 11/10/2009 MAX MARTINES, KATHYA Chopra 719.41 Pain In Joint, Shoulder Region 12/29/2009 311 DEPRESSIVE DISORDER, NOT ELSEWHERE CLASSIFIED 12/29/2009 564.1 Irritable Bowel Syndrome 12/29/2009 311 DEPRESSIVE DISORDER, NOT ELSEWHERE CLASSIFIED 12/29/2009 564.1 Irritable Bowel Syndrome 12/29/2009 LJ WILCOXS, KAELA Rdz 311 DEPRESSIVE DISORDER, NOT ELSEWHERE CLASSIFIED 12/29/2009 LJ DDS, KAELA Rdz 564.1 Irritable Bowel Syndrome 12/29/2009 HUSAM ORLANDO APRN T 311 DEPRESSIVE DISORDER, NOT ELSEWHERE CLASSIFIED 12/29/2009 JOHANNY AUDIO VISUAL ENGINEERHUSAM T 564.1 Irritable Bowel Syndrome 12/29/2009 TIMOTHY AUDIO VISUAL ENGINEER, WOLF S 311 DEPRESSIVE DISORDER, NOT ELSEWHERE CLASSIFIED 12/29/2009 TIMOTHY AUDIO VISUAL ENGINEER, WOLF S 564.1 Irritable Bowel Syndrome 12/29/2009 311 DEPRESSIVE DISORDER, NOT ELSEWHERE CLASSIFIED 12/29/2009 564.1 Irritable Bowel Syndrome 12/29/2009 BONNIE DO MORAIMA K 311 DEPRESSIVE DISORDER, NOT ELSEWHERE CLASSIFIED 12/29/2009 BONNIE LOCKETT MORAIMA K 564.1 Irritable Bowel Syndrome 12/29/2009 311 DEPRESSIVE DISORDER, NOT ELSEWHERE CLASSIFIED 12/29/2009 564.1 Irritable Bowel Syndrome 12/29/2009 311 DEPRESSIVE DISORDER, NOT ELSEWHERE CLASSIFIED 12/29/2009 564.1 Irritable Bowel Syndrome 12/29/2009 311 DEPRESSIVE DISORDER, NOT ELSEWHERE CLASSIFIED 12/29/2009 564.1 Irritable Bowel Syndrome 12/29/2009 311 DEPRESSIVE DISORDER, NOT ELSEWHERE CLASSIFIED 12/29/2009 564.1 Irritable Bowel Syndrome 12/29/2009 NORMA DDS, JUAREZ M 311 DEPRESSIVE DISORDER, NOT ELSEWHERE CLASSIFIED 12/29/2009 NORMA DDS, JUAREZ M 564.1 Irritable Bowel Syndrome 12/29/2009 NORMA DDS, JUAREZ M 311 DEPRESSIVE DISORDER, NOT ELSEWHERE CLASSIFIED 12/29/2009 NORMA DDS, JUAREZ M 564.1 Irritable Bowel Syndrome 12/29/2009 BONNIE LOCKETT MORAIMA K 311 DEPRESSIVE DISORDER, NOT ELSEWHERE CLASSIFIED 12/29/2009 NICOLE DO MORAIMA K 564.1 Irritable Bowel Syndrome 12/29/2009 TIMOTHY AUDIO VISUAL ENGINEER, WOLF S 311 DEPRESSIVE DISORDER, NOT ELSEWHERE CLASSIFIED 12/29/2009 TIMOTHY AUDIO VISUAL ENGINEER, WOLF S 564.1 Irritable Bowel Syndrome 12/29/2009 TIMOTHY AUDIO VISUAL ENGINEER, WOLF S 311 DEPRESSIVE DISORDER, NOT ELSEWHERE CLASSIFIED 12/29/2009 TIMOTHY AUDIO VISUAL ENGINEER, WOLF S 564.1 Irritable Bowel Syndrome 12/29/2009 TIMOTHY AUDIO VISUAL ENGINEER, WOLF S 311 DEPRESSIVE DISORDER, NOT ELSEWHERE CLASSIFIED 12/29/2009 TIMOTHY AUDIO VISUAL ENGINEER, WOLF S 564.1 Irritable Bowel Syndrome 12/29/2009 TIMOTHY AUDIO VISUAL ENGINEER, WOLF S 311 DEPRESSIVE DISORDER, NOT ELSEWHERE CLASSIFIED 12/29/2009 TIMOTHY AUDIO VISUAL ENGINEER, WOLF S 564.1 Irritable Bowel Syndrome 12/29/2009 TIMOTHY AUDIO VISUAL ENGINEER, WOLF S 311 DEPRESSIVE DISORDER, NOT ELSEWHERE CLASSIFIED 12/29/2009 TIMOTHY AUDIO VISUAL ENGINEER, WOLF S 564.1 Irritable Bowel Syndrome 12/29/2009 WHITE DDS, MELISSA J 311 DEPRESSIVE DISORDER, NOT ELSEWHERE CLASSIFIED 12/29/2009 WHITE DDS, MELISSA J 564.1 Irritable Bowel Syndrome 12/29/2009 TAN DDS, MARIA LUISA 311 DEPRESSIVE DISORDER, NOT ELSEWHERE CLASSIFIED 12/29/2009 TAN DDS, MARIA LUISA 564.1 Irritable Bowel Syndrome 12/29/2009 HUSAM ORLANDO APRN 311 DEPRESSIVE DISORDER, NOT ELSEWHERE CLASSIFIED 12/29/2009 JOHANNY KAN HUSAM Isabel 564.1 Irritable Bowel Syndrome 12/29/2009 TIMOTHY AUDIO VISUAL ENGINEER, WOLF S 311 DEPRESSIVE DISORDER, NOT ELSEWHERE CLASSIFIED 12/29/2009 TIMOTHY AUDIO VISUAL ENGINEER, WOLF S 564.1 Irritable Bowel Syndrome 12/29/2009 TIMOTHY AUDIO VISUAL ENGINEER, WOLF S 311 DEPRESSIVE DISORDER, NOT ELSEWHERE CLASSIFIED 12/29/2009 TIMOTHY AUDIO VISUAL ENGINEER, WOLF S 564.1 Irritable Bowel Syndrome 12/29/2009 CASSIE DOMINGUEZ, KADY Raymundo 311 DEPRESSIVE DISORDER, NOT ELSEWHERE CLASSIFIED 12/29/2009 CASSIE DOMINGUEZ, KADY Raymundo 564.1 Irritable Bowel Syndrome 12/29/2009 TIMOTHY AUDIO VISUAL ENGINEER, WOLF S 311 DEPRESSIVE DISORDER, NOT ELSEWHERE CLASSIFIED 12/29/2009 TIMOTHY AUDIO VISUAL ENGINEER, WOLF S 564.1 Irritable Bowel Syndrome 12/29/2009 TIMOTHY AUDIO VISUAL ENGINEER, WOLF S 311 DEPRESSIVE DISORDER, NOT ELSEWHERE CLASSIFIED 12/29/2009 TIMOTHY AUDIO VISUAL ENGINEER, WOLF S 564.1 Irritable Bowel Syndrome 12/29/2009 TAN DDS, MARIA LUISA 311 DEPRESSIVE DISORDER, NOT ELSEWHERE CLASSIFIED 12/29/2009 TAN DDS, MARIA LUISA 564.1 Irritable Bowel Syndrome 12/29/2009 MAX WILCOXS, KATHYA Chopra 311 DEPRESSIVE DISORDER, NOT ELSEWHERE CLASSIFIED 12/29/2009 MAX DDS, KATHYA Chopra 564.1 Irritable Bowel Syndrome 01/27/2010 427.89 Other Specified Cardiac Dysrhythmias 01/27/2010 787.02 Nausea Alone 01/27/2010 427.89 Other Specified Cardiac Dysrhythmias 01/27/2010 787.02 Nausea Alone 01/27/2010 LJ DDS, KAELA F 427.89 Other Specified Cardiac Dysrhythmias 01/27/2010 LJ DDS, KAELA F 787.02 Nausea Alone 01/27/2010 HUSAM ORLANDO APRN 427.89 Other Specified Cardiac Dysrhythmias 01/27/2010 HUSAM ORLANDO APRN 787.02 Nausea Alone 01/27/2010 WOLF AGUIRRE APRN S 427.89 Other Specified Cardiac Dysrhythmias 01/27/2010 WOLF AGUIRRE APRN S 787.02 Nausea Alone 01/27/2010 427.89 Other Specified Cardiac Dysrhythmias 01/27/2010 787.02 Nausea Alone 01/27/2010 MORAIMA NICOLE DO 427.89 Other Specified Cardiac Dysrhythmias 01/27/2010 MORAIMA NICOLE DO 787.02 Nausea Alone 01/27/2010 427.89 Other Specified Cardiac Dysrhythmias 01/27/2010 787.02 Nausea Alone 01/27/2010 427.89 Other Specified Cardiac Dysrhythmias 01/27/2010 787.02 Nausea Alone 01/27/2010 427.89 Other Specified Cardiac Dysrhythmias 01/27/2010 787.02 Nausea Alone 01/27/2010 427.89 Other Specified Cardiac Dysrhythmias 01/27/2010 787.02 Nausea Alone 01/27/2010 NORMA DDS, JUAREZ Pierre 427.89 Other Specified Cardiac Dysrhythmias 01/27/2010 NORMA DDS, JUAREZ Pierre 787.02 Nausea Alone 01/27/2010 NORMA WILCOXS, JUAREZ Pierre 427.89 Other Specified Cardiac Dysrhythmias 01/27/2010 NORMA JERIS, JUAREZ Pierre 787.02 Nausea Alone 01/27/2010 MORAIMA NICOLE DO 427.89 Other Specified Cardiac Dysrhythmias 01/27/2010 MORAIMA NICOLE DO 787.02 Nausea Alone 01/27/2010 TIMOTHY AUDIO VISUAL ENGINEER, WOLF S 427.89 Other Specified Cardiac Dysrhythmias 01/27/2010 TIMOTHY AUDIO VISUAL ENGINEER, WOLF S 787.02 Nausea Alone 01/27/2010 TIMOTHY AUDIO VISUAL ENGINEER, WOLF S 427.89 Other Specified Cardiac Dysrhythmias 01/27/2010 TIMOTHY AUDIO VISUAL ENGINEER, WOLF S 787.02 Nausea Alone 01/27/2010 TIMOTHY AUDIO VISUAL ENGINEER, WOLF S 427.89 Other Specified Cardiac Dysrhythmias 01/27/2010 TIMOTHY AUDIO VISUAL ENGINEER, WOLF S 787.02 Nausea Alone 01/27/2010 TIMOTHY AUDIO VISUAL ENGINEER, WOLF S 427.89 Other Specified Cardiac Dysrhythmias 01/27/2010 TIMOTHY AUDIO VISUAL ENGINEER, WOLF S 787.02 Nausea Alone 01/27/2010 TIMOTHY AUDIO VISUAL ENGINEER, WOLF S 427.89 Other Specified Cardiac Dysrhythmias 01/27/2010 TIMOTHY AUDIO VISUAL ENGINEER, WOLF S 787.02 Nausea Alone 01/27/2010 GAGANDEEP DDS, MELISSA Raymundo 427.89 Other Specified Cardiac Dysrhythmias 01/27/2010 GAGANDEEP DDS, MELISSA J 787.02 Nausea Alone 01/27/2010 TAN DDS, MARIA LUISA 427.89 Other Specified Cardiac Dysrhythmias 01/27/2010 TAN DDS, MARIA LUISA 787.02 Nausea Alone 01/27/2010 HUSAM ORLANDO APRN 427.89 Other Specified Cardiac Dysrhythmias 01/27/2010 HUSAM ORLANDO APRN 787.02 Nausea Alone 01/27/2010 TIMOTHY AUDIO VISUAL ENGINEER, WOLF S 427.89 Other Specified Cardiac Dysrhythmias 01/27/2010 TIMOTHY AUDIO VISUAL ENGINEER, WOLF S 787.02 Nausea Alone 01/27/2010 TIMOTHY AUDIO VISUAL ENGINEER, WOLF S 427.89 Other Specified Cardiac Dysrhythmias 01/27/2010 TIMOTHY AUDIO VISUAL ENGINEER, WOLF S 787.02 Nausea Alone 01/27/2010 KADY MATTHEWS MD 427.89 Other Specified Cardiac Dysrhythmias 01/27/2010 KADY MATTHEWS MD 787.02 Nausea Alone 01/27/2010 TIMOTHY AUDIO VISUAL ENGINEER, WOLF S 427.89 Other Specified Cardiac Dysrhythmias 01/27/2010 TIMOTHY AUDIO VISUAL ENGINEER, WOLF S 787.02 Nausea Alone 01/27/2010 TIMOTHY AUDIO VISUAL ENGINEER, WOLF S 427.89 Other Specified Cardiac Dysrhythmias 01/27/2010 TIMOTHY AUDIO VISUAL ENGINEER, WOLF S 787.02 Nausea Alone 01/27/2010 TAN DDS, MARIA LUISA 427.89 Other Specified Cardiac Dysrhythmias 01/27/2010 TAN DDS, MARIA LUISA 787.02 Nausea Alone 01/27/2010 MAX DDS, KATHYA D 427.89 Other Specified Cardiac Dysrhythmias 01/27/2010 MAX DDS, KATHYA D 787.02 Nausea Alone 02/03/2010 781.0 Abnormal Involuntary Movements 02/03/2010 781.0 Abnormal Involuntary Movements 02/03/2010 LJ DDS, KAELA F 781.0 Abnormal Involuntary Movements 02/03/2010 HUSAM ORLANDO APRN 781.0 Abnormal Involuntary Movements 02/03/2010 TIMOTHY AUDIO VISUAL ENGINEER, WOLF S 781.0 Abnormal Involuntary Movements 02/03/2010 781.0 Abnormal Involuntary Movements 02/03/2010 NICOLE DO, MORAIMA K 781.0 Abnormal Involuntary Movements 02/03/2010 781.0 Abnormal Involuntary Movements 02/03/2010 781.0 Abnormal Involuntary Movements 02/03/2010 781.0 Abnormal Involuntary Movements 02/03/2010 781.0 Abnormal Involuntary Movements 02/03/2010 NORMA DDS, JUAREZ M 781.0 Abnormal Involuntary Movements 02/03/2010 NORMA DDS, JUAREZ M 781.0 Abnormal Involuntary Movements 02/03/2010 NICOLE DO, MORAIMA K 781.0 Abnormal Involuntary Movements 02/03/2010 TIMOTHY AUDIO VISUAL ENGINEER, WOLF S 781.0 Abnormal Involuntary Movements 02/03/2010 TIMOTHY AUDIO VISUAL ENGINEER, WOLF S 781.0 Abnormal Involuntary Movements 02/03/2010 TIMOTHY AUDIO VISUAL ENGINEER, WOLF S 781.0 Abnormal Involuntary Movements 02/03/2010 TIMOTHY AUDIO VISUAL ENGINEER, WOLF S 781.0 Abnormal Involuntary Movements 02/03/2010 TIMOTHY AUDIO VISUAL ENGINEER, WOLF S 781.0 Abnormal Involuntary Movements 02/03/2010 GAGANDEEP DDS, MELISSA Raymundo 781.0 Abnormal Involuntary Movements 02/03/2010 BRITNEY WILCOXS, MARIA LUISA 781.0 Abnormal Involuntary Movements 02/03/2010 HUSAM ORLANDO APRN 781.0 Abnormal Involuntary Movements 02/03/2010 TIMOTHY KAN, WOLF S 781.0 Abnormal Involuntary Movements 02/03/2010 TIMOTHY KAN, WOLF S 781.0 Abnormal Involuntary Movements 02/03/2010 CASSIE DOMINGUEZ, KADY Raymundo 781.0 Abnormal Involuntary Movements 02/03/2010 TIMOTHY KAN, WOLF S 781.0 Abnormal Involuntary Movements 02/03/2010 TIMOTHY KAN, WOLF S 781.0 Abnormal Involuntary Movements 02/03/2010 BRITNEY WILCOXS, MARIA LUISA 781.0 Abnormal Involuntary Movements 02/03/2010 [...] HUSAM ORLANDO APRN 780.52 Insomnia, Unspecified 02/06/2010 WOLF AGUIRRE APRN S 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 02/06/2010 YU AGUIRRE APRNA S 780.52 Insomnia, Unspecified 02/06/2010 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 02/06/2010 780.52 Insomnia, Unspecified 02/06/2010 MORAIMA NICOLE DO 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 02/06/2010 MORAIMA NICOLE DO 780.52 Insomnia, Unspecified 02/06/2010 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 02/06/2010 780.52 Insomnia, Unspecified 02/06/2010 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 02/06/2010 780.52 Insomnia, Unspecified 02/06/2010 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 02/06/2010 780.52 Insomnia, Unspecified 02/06/2010 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 02/06/2010 780.52 Insomnia, Unspecified 02/06/2010 NORMA DDS, JUAREZ M 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 02/06/2010 NORMA DDS, JUAREZ M 780.52 Insomnia, Unspecified 02/06/2010 NORMA DDS, JUAREZ M 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 02/06/2010 NORMA DDS, JUAREZ M 780.52 Insomnia, Unspecified 02/06/2010 NICOLE DO MORAIMA K 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 02/06/2010 NICOLE DO, MORAIMA K 780.52 Insomnia, Unspecified 02/06/2010 TIMOTHY GAINESN, WOLF S 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 02/06/2010 TIMOTHY AUDIO VISUAL ENGINEER, WOLF S 780.52 Insomnia, Unspecified 02/06/2010 TIMOTHY AUDIO VISUAL ENGINEER, WOLF S 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 02/06/2010 TIMOTHY AUDIO VISUAL ENGINEER, WOLF S 780.52 Insomnia, Unspecified 02/06/2010 TIMOTHY AUDIO VISUAL ENGINEER, WOLF S 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 02/06/2010 TIMOTHY AUDIO VISUAL ENGINEER, WOLF S 780.52 Insomnia, Unspecified 02/06/2010 TIMOTHY AUDIO VISUAL ENGINEER, WOLF S 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 02/06/2010 TIMOTHY AUDIO VISUAL ENGINEER, WOLF S 780.52 Insomnia, Unspecified 02/06/2010 TIMOTHY AUDIO VISUAL ENGINEER, WOLF S 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 02/06/2010 TIMOTHY AUDIO VISUAL ENGINEER, WOLF S 780.52 Insomnia, Unspecified 02/06/2010 GAGANDEEP DDSMELISSA J 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 02/06/2010 GAGANDEEP DDSMELISSA 780.52 Insomnia, Unspecified 02/06/2010 BRITNEY WILCOXS, MARIA LUISA 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 02/06/2010 BRITNEY WILCOXS, MARIA LUISA 780.52 Insomnia, Unspecified 02/06/2010 HUSAM [...] KAN WOLF S 780.52 Insomnia, Unspecified 02/06/2010 KADY MATTHEWS MD 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 02/06/2010 KADY MATTHEWS MD 780.52 Insomnia, Unspecified 02/06/2010 TIMOTHY KAN WOLF S 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 02/06/2010 TIMOTHY KAN WOLF S 780.52 Insomnia, Unspecified 02/06/2010 TIMOTHY KAN WOLF S 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 02/06/2010 TIMOTHY KAN WOLF S 780.52 Insomnia, Unspecified 02/06/2010 TAN JERIS, MARIA LUISA 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 02/06/2010 BRITNEY WILCOXSMARIA LUISA 780.52 Insomnia, Unspecified 02/06/2010 MAX WILCOXSKATHYA 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 02/06/2010 MAX WILCOXSKATHYA 780.52 Insomnia, Unspecified 04/18/2010 616.10 Vaginitis And Vulvovaginitis, Unspecified 04/18/2010 788.1 Dysuria 04/18/2010 V72.31 Routine Gynecological Examination 04/18/2010 616.10 Vaginitis And Vulvovaginitis, Unspecified 04/18/2010 788.1 Dysuria 04/18/2010 V72.31 Routine Gynecological Examination 04/18/2010 LJ DDS, KAELA F 616.10 Vaginitis And Vulvovaginitis, Unspecified 04/18/2010 LJ DDS, KAELA F 788.1 Dysuria 04/18/2010 LJ DDS, KAELA F V72.31 Routine Gynecological Examination 04/18/2010 JOHANNY GAINESNHUSAM T 616.10 Vaginitis And Vulvovaginitis, Unspecified 04/18/2010 HUSAM ORLANDO APRN T 788.1 Dysuria 04/18/2010 JOHANNY GAINESNHUSAM T V72.31 Routine Gynecological Examination 04/18/2010 TIMOTHY AUDIO VISUAL ENGINEER, WOLF S 616.10 Vaginitis And Vulvovaginitis, Unspecified 04/18/2010 TIMOTHY AUDIO VISUAL ENGINEER, WOLF S 788.1 Dysuria 04/18/2010 TIMOTHY AUDIO VISUAL ENGINEER, WOLF S V72.31 Routine Gynecological Examination 04/18/2010 616.10 Vaginitis And Vulvovaginitis, Unspecified 04/18/2010 788.1 Dysuria 04/18/2010 V72.31 Routine Gynecological Examination 04/18/2010 LILLIAN NICOLE DOA K 616.10 Vaginitis And Vulvovaginitis, Unspecified 04/18/2010 [...] And Vulvovaginitis, Unspecified 04/18/2010 NORMA DDS, JUAREZ M 788.1 Dysuria 04/18/2010 NORMA DDS, JUAREZ Pierre V72.31 Routine Gynecological Examination 04/18/2010 NORMA DDS, JUAREZ Pierre 616.10 Vaginitis And Vulvovaginitis, Unspecified 04/18/2010 NORMA DDS, JUAREZ Pierre 788.1 Dysuria 04/18/2010 NORMA DDS, JUAREZ Pierre V72.31 Routine Gynecological Examination 04/18/2010 NICOLE DO, MORAIMA K 616.10 Vaginitis And Vulvovaginitis, Unspecified 04/18/2010 NICOLE DO, MORAIMA K 788.1 Dysuria 04/18/2010 NICOLE DO, MORAIMA K V72.31 Routine Gynecological Examination 04/18/2010 TIMOTHY AUDIO VISUAL ENGINEER, WOLF S 616.10 Vaginitis And Vulvovaginitis, Unspecified 04/18/2010 TIMOTHY AUDIO VISUAL ENGINEER, WOLF S 788.1 Dysuria 04/18/2010 TIMOTHY AUDIO VISUAL ENGINEER, WOLF S V72.31 Routine Gynecological Examination 04/18/2010 TIMOTHY AUDIO VISUAL ENGINEER, WOLF S 616.10 Vaginitis And Vulvovaginitis, Unspecified 04/18/2010 TIMOTHY AUDIO VISUAL ENGINEER, WOLF S 788.1 Dysuria 04/18/2010 TIMOTHY AUDIO VISUAL ENGINEER, WOLF S V72.31 Routine Gynecological Examination 04/18/2010 TIMOTHY AUDIO VISUAL ENGINEER, WOLF S 616.10 Vaginitis And Vulvovaginitis, Unspecified 04/18/2010 TIMOTHY AUDIO VISUAL ENGINEER, WOLF S 788.1 Dysuria 04/18/2010 TIMOTHY AUDIO VISUAL ENGINEER, WOLF S V72.31 Routine Gynecological Examination 04/18/2010 TIMOTHY AUDIO VISUAL ENGINEER, WOLF S 616.10 Vaginitis And Vulvovaginitis, Unspecified 04/18/2010 TIMOTHY AUDIO VISUAL ENGINEER, WOLF S 788.1 Dysuria 04/18/2010 TIMOTHY AUDIO VISUAL ENGINEER, WOLF S V72.31 Routine Gynecological Examination 04/18/2010 TIMOTHY AUDIO VISUAL ENGINEER, WOLF S 616.10 Vaginitis And Vulvovaginitis, Unspecified 04/18/2010 TIMOTHY AUDIO VISUAL ENGINEER, WOLF S 788.1 Dysuria 04/18/2010 TIMOTHY GAINESN, WOLF S V72.31 Routine Gynecological Examination 04/18/2010 WHITE DDS, MELISSA J 616.10 Vaginitis And Vulvovaginitis, Unspecified 04/18/2010 WHITE DDS, MELISSA J 788.1 Dysuria 04/18/2010 WHITE DDS, MELISSA J V72.31 Routine Gynecological Examination 04/18/2010 TAN DDS, MARIA LUISA 616.10 Vaginitis And Vulvovaginitis, Unspecified 04/18/2010 TAN DDS, MARIA LUISA 788.1 Dysuria 04/18/2010 TAN DDS, MARIA LUISA V72.31 Routine Gynecological Examination 04/18/2010 HUSAM ORLANDO APRN 616.10 Vaginitis And Vulvovaginitis, Unspecified 04/18/2010 HUSAM ORLANDO APRN 788.1 Dysuria 04/18/2010 HUSAM ORLANDO APRN V72.31 Routine Gynecological Examination 04/18/2010 TIMOTHY AUDIO VISUAL ENGINEER, WOLF S 616.10 Vaginitis And Vulvovaginitis, Unspecified 04/18/2010 TIMOTHY KAN, WOLF S 788.1 Dysuria 04/18/2010 TIMOTHY AUDIO VISUAL ENGINEER, WOLF S V72.31 Routine Gynecological Examination 04/18/2010 TIMOTHY AUDIO VISUAL ENGINEER, WOLF S 616.10 Vaginitis And Vulvovaginitis, Unspecified 04/18/2010 TIMOTHY AUDIO VISUAL ENGINEER, WOLF S 788.1 Dysuria 04/18/2010 TIMOTHY AUDIO VISUAL ENGINEER, WOLF S V72.31 Routine Gynecological Examination 04/18/2010 CASSIE DOMINGUEZ, KADY Raymundo 616.10 Vaginitis And Vulvovaginitis, Unspecified 04/18/2010 CASSIE DOMINGUEZ, KADY Raymundo 788.1 Dysuria 04/18/2010 CASSIE DOMINGUEZ, KADY Raymundo V72.31 Routine Gynecological Examination 04/18/2010 TIMOTHY KAN WOLF S 616.10 Vaginitis And Vulvovaginitis, Unspecified 04/18/2010 TIMOTHY AUDIO VISUAL ENGINEER, WOLF S 788.1 Dysuria 04/18/2010 TIMOTHY AUDIO VISUAL ENGINEER, WOLF S V72.31 Routine Gynecological Examination 04/18/2010 TIMOTHY AUDIO VISUAL ENGINEER, WOLF S 616.10 Vaginitis And Vulvovaginitis, Unspecified 04/18/2010 TIMOTHY AUDIO VISUAL ENGINEER, WOLF S 788.1 Dysuria 04/18/2010 TIMOTHY AUDIO VISUAL ENGINEER, WOLF S V72.31 Routine Gynecological Examination 04/18/2010 TAN DDSMARIA LUISA 616.10 Vaginitis And Vulvovaginitis, Unspecified 04/18/2010 TAN DDS, MARIA LUISA 788.1 Dysuria 04/18/2010 TAN DDS, MARIA LUISA V72.31 Routine Gynecological Examination 04/18/2010 MAX DDS, KATHYA D 616.10 Vaginitis And Vulvovaginitis, Unspecified 04/18/2010 MAX DDS, KATHYA D 788.1 Dysuria 04/18/2010 MAX DDS, KATHYA D V72.31 Routine Gynecological Examination 08/22/2010 461.9 Sinusitis Acute 08/22/2010 536.8 Dyspepsia And Other Specified Disorders Of Function Of Stomach 08/22/2010 461.9 Sinusitis Acute 08/22/2010 536.8 Dyspepsia And Other Specified Disorders Of Function Of Stomach 08/22/2010 LJ DDS, KAELA F 461.9 Sinusitis Acute 08/22/2010 LJ DDS, KAELA F 536.8 Dyspepsia And Other Specified Disorders Of Function Of Stomach 08/22/2010 HUSAM ORLANDO APRN 461.9 Sinusitis Acute 08/22/2010 HUSAM ORLANDO APRN 536.8 Dyspepsia And Other Specified Disorders Of Function Of Stomach 08/22/2010 TIMOTHY GAINESN WOLF S 461.9 Sinusitis Acute 08/22/2010 TIMOTHY AUDIO VISUAL ENGINEER, WOLF S 536.8 Dyspepsia And Other Specified [...] Specified Disorders Of Function Of Stomach 08/22/2010 NORMA DDSJUAREZ 461.9 Sinusitis Acute 08/22/2010 NORMA DDS, JUAREZ Pierre 536.8 Dyspepsia And Other Specified Disorders Of Function Of Stomach 08/22/2010 NORMA DDSJUAREZ 461.9 Sinusitis Acute 08/22/2010 NORMA DDS, JUAREZ Pierre 536.8 Dyspepsia And Other Specified Disorders Of Function Of Stomach 08/22/2010 NICOLE DO, MORAIMA K 461.9 Sinusitis Acute 08/22/2010 NICOLE DO MORAIMA K 536.8 Dyspepsia And Other Specified Disorders Of Function Of Stomach 08/22/2010 TIMOTHY AUDIO VISUAL ENGINEER, WOLF S 461.9 Sinusitis Acute 08/22/2010 TIMOTHY AUDIO VISUAL ENGINEER, WOLF S 536.8 Dyspepsia And Other Specified Disorders Of Function Of Stomach 08/22/2010 TIMOTHY AUDIO VISUAL ENGINEER, WOLF S 461.9 Sinusitis Acute 08/22/2010 TIMOTHY AUDIO VISUAL ENGINEER, WOLF S 536.8 Dyspepsia And Other Specified Disorders Of Function Of Stomach 08/22/2010 TIMOTHY AUDIO VISUAL ENGINEER, WOLF S 461.9 Sinusitis Acute 08/22/2010 TIMOTHY AUDIO VISUAL ENGINEER, WOLF S 536.8 Dyspepsia And Other Specified Disorders Of Function Of Stomach 08/22/2010 TIMOTHY AUDIO VISUAL ENGINEER, WOLF S 461.9 Sinusitis Acute 08/22/2010 TIMOTHY AUDIO VISUAL ENGINEER, WOLF S 536.8 Dyspepsia And Other Specified Disorders Of Function Of Stomach 08/22/2010 TIMOTHY AUDIO VISUAL ENGINEER, WOLF S 461.9 Sinusitis Acute 08/22/2010 TIMOTHY AUDIO VISUAL ENGINEER, WOLF S 536.8 Dyspepsia And Other Specified Disorders Of Function Of Stomach 08/22/2010 WHITE DDS, MELISSA J 461.9 Sinusitis Acute 08/22/2010 WHITE DDS, MELISSA J 536.8 Dyspepsia And Other Specified Disorders Of Function Of Stomach 08/22/2010 TAN DDS, MARIA LUISA 461.9 Sinusitis Acute 08/22/2010 TAN DDS, MARIA LUISA 536.8 Dyspepsia And Other Specified Disorders Of Function Of Stomach 08/22/2010 HUSAM ORLANDO APRN 461.9 Sinusitis Acute 08/22/2010 HUSAM ORLANDO APRN 536.8 Dyspepsia And Other Specified Disorders Of Function Of Stomach 08/22/2010 HAFSA AGUIRRE APRNNDA S 461.9 Sinusitis Acute 08/22/2010 TIMOTHY KAN, WOLF S 536.8 Dyspepsia And Other Specified Disorders Of Function Of Stomach 08/22/2010 TIMOTHY AUDIO VISUAL ENGINEER, WOLF S 461.9 Sinusitis Acute 08/22/2010 TIMOTHY KAN, WOLF S 536.8 Dyspepsia And Other Specified Disorders Of Function Of Stomach 08/22/2010 CASSIE DOMINGUEZ, KADY Raymundo 461.9 Sinusitis Acute 08/22/2010 CASSIE DOMINGUEZ, KADY Raymundo 536.8 Dyspepsia And Other Specified Disorders Of Function Of Stomach 08/22/2010 TIMOTHY AUDIO VISUAL ENGINEER, WOLF S 461.9 Sinusitis Acute 08/22/2010 TIMOTHY AUDIO VISUAL ENGINEER, WOLF S 536.8 Dyspepsia And Other Specified Disorders Of Function Of Stomach 08/22/2010 TIMOTHY AUDIO VISUAL ENGINEER, WOLF S 461.9 Sinusitis Acute 08/22/2010 TIMOTHY AUDIO VISUAL ENGINEER, WOLF S 536.8 Dyspepsia And Other Specified [...] 466.0 Acute Bronchitis 10/24/2010 LJ DDS, KAELA F 466.0 Acute Bronchitis 10/24/2010 HUSAM ORLANDO APRN T 466.0 Acute Bronchitis 10/24/2010 TIMOTHY AUDIO VISUAL ENGINEER, WOLF S 466.0 Acute Bronchitis 10/24/2010 466.0 Acute Bronchitis 10/24/2010 NICOLE DO, MORAIMA K 466.0 Acute Bronchitis 10/24/2010 466.0 Acute Bronchitis 10/24/2010 466.0 Acute Bronchitis 10/24/2010 466.0 Acute Bronchitis 10/24/2010 466.0 Acute Bronchitis 10/24/2010 NORMA DDS, JUAREZ M 466.0 Acute Bronchitis 10/24/2010 NORMA WILCOXS, JUAREZ M 466.0 Acute Bronchitis 10/24/2010 NICOLE DO, MORAIMA K 466.0 Acute Bronchitis 10/24/2010 TIMOTHY AUDIO VISUAL ENGINEER, WOLF S 466.0 Acute Bronchitis 10/24/2010 TIMOTHY AUDIO VISUAL ENGINEER, WOLF S 466.0 Acute Bronchitis 10/24/2010 TIMOTHY AUDIO VISUAL ENGINEER, WOLF S 466.0 Acute Bronchitis 10/24/2010 TIMOTHY AUDIO VISUAL ENGINEER, WOLF S 466.0 Acute Bronchitis 10/24/2010 TIMOTHY AUDIO VISUAL ENGINEER, WOLF S 466.0 Acute Bronchitis 10/24/2010 GAGANDEEP WILCOXS, MELISSA Raymundo 466.0 Acute Bronchitis 10/24/2010 BRITNEY WILCOXS, MARIA LUISA 466.0 Acute Bronchitis 10/24/2010 HUSAM ORLANDO APRN T 466.0 Acute Bronchitis 10/24/2010 TIMOTHY AUDIO VISUAL ENGINEER, WOLF S 466.0 Acute Bronchitis 10/24/2010 TIMOTHY AUDIO VISUAL ENGINEER, WOLF S 466.0 Acute Bronchitis 10/24/2010 KADY MATTHEWS MD 466.0 Acute Bronchitis 10/24/2010 TIMOTHY AUDIO VISUAL ENGINEER, WOLF S 466.0 Acute Bronchitis 10/24/2010 TIMOTHY AUDIO VISUAL ENGINEER, WOLF S 466.0 Acute Bronchitis 10/24/2010 BRITNEY DDS, MARIA LUISA 466.0 Acute Bronchitis 10/24/2010 MAX DDS, KATHYA Chopra 466.0 Acute Bronchitis 12/05/2010 826.0 Closed Fracture Of One Or More Phalanges Of Foot 12/05/2010 826.0 Closed Fracture Of One Or More Phalanges Of Foot 12/05/2010 LJ DDS, KAELA F 826.0 Closed Fracture Of One Or More Phalanges Of Foot 12/05/2010 JOHANNY GAINESNHUSAM T 826.0 Closed Fracture Of One Or More Phalanges Of Foot 12/05/2010 TIMOTHY AUDIO VISUAL ENGINEER, WOLF S 826.0 Closed Fracture Of One Or More Phalanges Of Foot 12/05/2010 826.0 Closed Fracture Of One Or More Phalanges Of Foot 12/05/2010 MORAIMA NICOLE DO K 826.0 Closed Fracture Of One Or More Phalanges Of Foot 12/05/2010 826.0 Closed Fracture Of One Or More Phalanges Of Foot 12/05/2010 826.0 Closed Fracture Of One Or More Phalanges Of Foot 12/05/2010 826.0 Closed Fracture Of One Or More Phalanges Of Foot 12/05/2010 826.0 Closed Fracture Of One Or More Phalanges Of Foot 12/05/2010 NORMA WILCOXSJUAREZ 826.0 Closed Fracture Of One Or More Phalanges Of Foot 12/05/2010 NORMA WILCOXSJUAREZ 826.0 Closed Fracture Of One Or More Phalanges Of Foot 12/05/2010 MORAIMA NICOLE DO K 826.0 Closed Fracture Of One Or More Phalanges Of Foot 12/05/2010 TIMOTHY AUDIO VISUAL ENGINEER, WOLF S 826.0 Closed Fracture Of One Or More Phalanges Of Foot 12/05/2010 TIMOTHY AUDIO VISUAL ENGINEER, WOLF S 826.0 Closed Fracture Of One Or More Phalanges Of Foot 12/05/2010 TIMOTHY AUDIO VISUAL ENGINEER, WOLF S 826.0 Closed Fracture Of One Or More Phalanges Of Foot 12/05/2010 TIMOTHY AUDIO VISUAL ENGINEER, WOLF S 826.0 Closed Fracture Of One Or More Phalanges Of Foot 12/05/2010 TIMOTHY AUDIO VISUAL ENGINEER, WOLF S 826.0 Closed Fracture Of One Or More Phalanges Of Foot 12/05/2010 GAGANDEEP WILCOXS, MELISSA Raymundo 826.0 Closed Fracture Of One Or More Phalanges Of Foot 12/05/2010 BRITNEY MARTINES, MARIA LUISA 826.0 Closed Fracture Of One Or More Phalanges Of Foot 12/05/2010 HUSAM ORLANDO APRN T 826.0 Closed Fracture Of One Or More Phalanges Of Foot 12/05/2010 TIMOTHY AUDIO VISUAL ENGINEER, WOLF S 826.0 Closed Fracture Of One Or More Phalanges Of Foot 12/05/2010 TIMOTHY AUDIO VISUAL ENGINEER, WOLF S 826.0 Closed Fracture Of One Or More Phalanges Of Foot 12/05/2010 CASSIE DOMINGUEZ, KADY Raymundo 826.0 Closed Fracture Of One Or More Phalanges Of Foot 12/05/2010 TIMOTHY GAINESN, WOLF S 826.0 Closed Fracture Of One Or More Phalanges Of Foot 12/05/2010 TIMOTHY KAN, WOLF S 826.0 Closed Fracture Of One Or More Phalanges Of Foot 12/05/2010 MARIA LUISA TAN DDS 826.0 Closed Fracture Of One Or More Phalanges Of Foot 12/05/2010 MAX WILCOXS, KATHYA Chopra 826.0 Closed Fracture Of One Or More Phalanges Of Foot 11/03/2011 465.9 Upper Respiratory Infection 11/03/2011 465.9 Upper Respiratory Infection 11/03/2011 LJ MARTINES, KAELA Rdz 465.9 Upper Respiratory Infection 11/03/2011 HUSAM ORLANDO APRN 465.9 Upper Respiratory Infection 11/03/2011 YU AGUIRRE APRNA S 465.9 Upper Respiratory Infection 11/03/2011 465.9 Upper Respiratory Infection 11/03/2011 MORAIMA NICOLE DO 465.9 Upper Respiratory Infection 11/03/2011 465.9 Upper Respiratory Infection 11/03/2011 465.9 Upper Respiratory Infection 11/03/2011 465.9 Upper Respiratory Infection 11/03/2011 465.9 Upper Respiratory Infection 11/03/2011 JUAREZ GREEN DDS 465.9 Upper Respiratory Infection 11/03/2011 JUAREZ GREEN DDS 465.9 Upper Respiratory Infection 11/03/2011 MORAIMA NICOLE DO 465.9 Upper Respiratory Infection 11/03/2011 HAFSA AGUIRRE APRNNDA S 465.9 Upper Respiratory Infection 11/03/2011 TIMOTHY AUDIO VISUAL ENGINEER, WOLF S 465.9 Upper Respiratory Infection 11/03/2011 TIMOTHY AUDIO VISUAL ENGINEER, WOLF S 465.9 Upper Respiratory Infection 11/03/2011 TIMOTHY AUDIO VISUAL ENGINEER, WOLF S 465.9 Upper Respiratory Infection 11/03/2011 TIMOTHY AUDIO VISUAL ENGINEER, WOLF S 465.9 Upper Respiratory Infection 11/03/2011 GAGANDEEP WILCOXS, MELISSA Raymundo 465.9 Upper Respiratory Infection 11/03/2011 TANJASON WILCOXS, MARIA LUISA 465.9 Upper Respiratory Infection 11/03/2011 HUSAM ORLANDO APRN 465.9 Upper Respiratory Infection 11/03/2011 TIMOTHY AUDIO VISUAL ENGINEER, WOLF S 465.9 Upper Respiratory Infection 11/03/2011 TIMOTHY AUDIO VISUAL ENGINEER, WOLF S 465.9 Upper Respiratory Infection 11/03/2011 CASSIE DOMINGUEZ, KADY Raymundo 465.9 Upper Respiratory Infection 11/03/2011 TIMOTHY AUDIO VISUAL ENGINEER, WOLF S 465.9 Upper Respiratory Infection 11/03/2011 TIMOTHY AUDIO VISUAL ENGINEER, WOLF S 465.9 Upper Respiratory Infection 11/03/2011 BRITNEY DDS, MARIA LUISA 465.9 Upper Respiratory Infection 11/03/2011 MAX WILCOXS, KATHYA Chopra 465.9 Upper Respiratory Infection 11/28/2011 V04.81 FLU DX ( MEDICARE ONLY) 11/28/2011 V04.81 FLU DX ( MEDICARE ONLY) 11/28/2011 LJ MARTINES, KAELA Rdz V04.81 FLU DX (MEDICARE ONLY) 11/28/2011 HUSAM ORLANDO APRN V04.81 FLU DX (MEDICARE ONLY) 11/28/2011 TIMOTHYSTARLA KAN, WOLF S V04.81 FLU DX (MEDICARE ONLY) 11/28/2011 V04.81 FLU DX ( MEDICARE ONLY) 11/28/2011 MORAIMA NICOLE DO V04.81 FLU DX (MEDICARE ONLY) 11/28/2011 V04.81 FLU DX ( MEDICARE ONLY) 11/28/2011 V04.81 FLU DX ( MEDICARE ONLY) 11/28/2011 V04.81 FLU DX ( MEDICARE ONLY) 11/28/2011 V04.81 FLU DX ( MEDICARE ONLY) 11/28/2011 JUAREZ GREEN DDS V04.81 FLU DX (MEDICARE ONLY) 11/28/2011 NORMA MARTINES, JUAREZ Pierre V04.81 FLU DX (MEDICARE ONLY) 11/28/2011 MORAIMA NICOLE DO V04.81 FLU DX (MEDICARE ONLY) 11/28/2011 TIMOTHY AUDIO VISUAL ENGINEER, WOLF S V04.81 FLU DX (MEDICARE ONLY) 11/28/2011 TIMOTHY AUDIO VISUAL ENGINEER, WOLF S V04.81 FLU DX (MEDICARE ONLY) 11/28/2011 TIMOTHY AUDIO VISUAL ENGINEER, WOLF S V04.81 FLU DX (MEDICARE ONLY) 11/28/2011 TIMOTHY AUDIO VISUAL ENGINEER, WOLF S V04.81 FLU DX (MEDICARE ONLY) 11/28/2011 TIMOTHY AUDIO VISUAL ENGINEER, WOLF S V04.81 FLU DX (MEDICARE ONLY) 11/28/2011 GAGANDEEP MARTINES, MELISSA Raymundo V04.81 FLU DX (MEDICARE ONLY) 11/28/2011 BRITNEY WILCOXS, MARIA LUISA V04.81 FLU DX (MEDICARE ONLY) 11/28/2011 HUSAM ORLANDO APRN V04.81 FLU DX (MEDICARE ONLY) 11/28/2011 TIMOTHY AUDIO VISUAL ENGINEER, WOLF S V04.81 FLU DX (MEDICARE ONLY) 11/28/2011 TIMOTHY AUDIO VISUAL ENGINEER, WOLF S V04.81 FLU DX (MEDICARE ONLY) 11/28/2011 CASSIE DOMINGUEZ, KADY Raymundo V04.81 FLU DX (MEDICARE ONLY) 11/28/2011 TIMOTHY AUDIO VISUAL ENGINEER, WOLF S V04.81 FLU DX (MEDICARE ONLY) 11/28/2011 TIMOTHY GAINESN, WOLF S V04.81 FLU DX (MEDICARE ONLY) 11/28/2011 MARIA LUISA TAN DDS V04.81 FLU DX (MEDICARE ONLY) 11/28/2011 MAX WILCOXS, KATHYA Chopra V04.81 FLU DX (MEDICARE ONLY) 02/21/2012 427.9 CARDIAC DYSRHYTHMIA UNSPECIFIED 02/21/2012 788.1 DYSURIA 02/21/2012 427.9 CARDIAC DYSRHYTHMIA UNSPECIFIED 02/21/2012 788.1 DYSURIA 02/21/2012 LJ WILCOXS, KAELA F 427.9 CARDIAC DYSRHYTHMIA UNSPECIFIED 02/21/2012 LJ WILCOXS, KAELA F 788.1 DYSURIA 02/21/2012 HUSAM ORLANDO APRN T 427.9 CARDIAC DYSRHYTHMIA UNSPECIFIED 02/21/2012 HUSAM ORLANDO APRN T 788.1 DYSURIA 02/21/2012 TIMOTHY AUDIO VISUAL ENGINEER, WOLF S 427.9 CARDIAC DYSRHYTHMIA UNSPECIFIED 02/21/2012 TIMOTHY AUDIO VISUAL ENGINEER, WOLF S 788.1 DYSURIA 02/21/2012 427.9 CARDIAC DYSRHYTHMIA UNSPECIFIED 02/21/2012 788.1 DYSURIA 02/21/2012 NICOLE DO, MORAIMA K 427.9 CARDIAC DYSRHYTHMIA UNSPECIFIED 02/21/2012 NICOLE DO, MORAIMA K 788.1 DYSURIA 02/21/2012 427.9 CARDIAC DYSRHYTHMIA UNSPECIFIED 02/21/2012 788.1 DYSURIA 02/21/2012 427.9 CARDIAC DYSRHYTHMIA UNSPECIFIED 02/21/2012 788.1 DYSURIA 02/21/2012 427.9 CARDIAC DYSRHYTHMIA UNSPECIFIED 02/21/2012 788.1 DYSURIA 02/21/2012 427.9 CARDIAC DYSRHYTHMIA UNSPECIFIED 02/21/2012 788.1 DYSURIA 02/21/2012 NORMA DDS, JUAREZ M 427.9 CARDIAC DYSRHYTHMIA UNSPECIFIED 02/21/2012 NORMA DDS, JUAREZ M 788.1 DYSURIA 02/21/2012 NORMA DDS, JUAREZ M 427.9 CARDIAC DYSRHYTHMIA UNSPECIFIED 02/21/2012 NORMA DDS, JUAREZ M 788.1 DYSURIA 02/21/2012 NICOLE DO MORAIMA K 427.9 CARDIAC DYSRHYTHMIA UNSPECIFIED 02/21/2012 NICOLE DO MORAIMA K 788.1 DYSURIA 02/21/2012 TIMOTHY AUDIO VISUAL ENGINEER, WOLF S 427.9 CARDIAC DYSRHYTHMIA UNSPECIFIED 02/21/2012 TIMOTHY AUDIO VISUAL ENGINEER, WOLF S 788.1 DYSURIA 02/21/2012 TIMOTHY AUDIO VISUAL ENGINEER, WOLF S 427.9 CARDIAC DYSRHYTHMIA UNSPECIFIED 02/21/2012 TIMOTHY AUDIO VISUAL ENGINEER, WOLF S 788.1 DYSURIA 02/21/2012 TIMOTHY AUDIO VISUAL ENGINEER, WOLF S 427.9 CARDIAC DYSRHYTHMIA UNSPECIFIED 02/21/2012 TIMOTHY AUDIO VISUAL ENGINEER, WOLF S 788.1 DYSURIA 02/21/2012 TIMOTHY AUDIO VISUAL ENGINEER, WOLF S 427.9 CARDIAC DYSRHYTHMIA UNSPECIFIED 02/21/2012 TIMOTHY AUDIO VISUAL ENGINEER, WOLF S 788.1 DYSURIA 02/21/2012 TIMOTHY AUDIO VISUAL ENGINEER, WOLF S 427.9 CARDIAC DYSRHYTHMIA UNSPECIFIED 02/21/2012 TIMOTHY AUDIO VISUAL ENGINEER, WOLF S 788.1 DYSURIA 02/21/2012 WHITE DDS, MELISSA J 427.9 CARDIAC DYSRHYTHMIA UNSPECIFIED 02/21/2012 WHITE DDS, MELISSA J 788.1 DYSURIA 02/21/2012 TAN DDS, MARIA LUISA 427.9 CARDIAC DYSRHYTHMIA UNSPECIFIED 02/21/2012 TAN DDS, MARIA LUISA 788.1 DYSURIA 02/21/2012 HUSAM ORLANDO APRN 427.9 CARDIAC DYSRHYTHMIA UNSPECIFIED 02/21/2012 HUSAM ORLANDO APRN 788.1 DYSURIA 02/21/2012 TIMOTHY AUDIO VISUAL ENGINEER, WOLF S 427.9 CARDIAC DYSRHYTHMIA UNSPECIFIED 02/21/2012 TIMOTHY AUDIO VISUAL ENGINEER, WOLF S 788.1 DYSURIA 02/21/2012 TIMOTHY AUDIO VISUAL ENGINEER, WOLF S 427.9 CARDIAC DYSRHYTHMIA UNSPECIFIED 02/21/2012 TIMOTHY AUDIO VISUAL ENGINEER, WOLF S 788.1 DYSURIA 02/21/2012 CASSIE DOMINGUEZ, KADY Raymundo 427.9 CARDIAC DYSRHYTHMIA UNSPECIFIED 02/21/2012 CASSIE DOMINGUEZ, KADY Raymundo 788.1 DYSURIA 02/21/2012 TIMOTHY AUDIO VISUAL ENGINEER, WOLF S 427.9 CARDIAC DYSRHYTHMIA UNSPECIFIED 02/21/2012 TIMOTHY AUDIO VISUAL ENGINEER, WOLF S 788.1 DYSURIA 02/21/2012 TIMOTHY AUDIO VISUAL ENGINEER, WOLF S 427.9 CARDIAC DYSRHYTHMIA UNSPECIFIED 02/21/2012 TIMOTHY AUDIO VISUAL ENGINEER, WOLF S 788.1 DYSURIA 02/21/2012 TAN DDS, MARIA LUISA 427.9 CARDIAC DYSRHYTHMIA UNSPECIFIED 02/21/2012 TAN DDS, MARIA LUISA 788.1 DYSURIA 02/21/2012 MAX DDS, KATHYA Chopra 427.9 CARDIAC DYSRHYTHMIA UNSPECIFIED 02/21/2012 MAX DDS, KATHYA Chopra 788.1 DYSURIA 11/11/2012 789.03 ABDOMINAL PAIN RIGHT LOWER QUADRANT 11/11/2012 LJ DDS, KAELA Kendell 789.03 ABDOMINAL PAIN RIGHT LOWER QUADRANT 11/11/2012 HUSAM ORLANDO APRN 789.03 ABDOMINAL PAIN RIGHT LOWER QUADRANT 11/11/2012 TIMOTHY KAN, WOLF S 789.03 ABDOMINAL PAIN RIGHT LOWER QUADRANT 11/11/2012 789.03 ABDOMINAL PAIN RIGHT LOWER QUADRANT 11/11/2012 NICOLE DO, MORAIMA K 789.03 ABDOMINAL PAIN RIGHT LOWER QUADRANT 11/11/2012 789.03 ABDOMINAL PAIN RIGHT LOWER QUADRANT 11/11/2012 789.03 ABDOMINAL PAIN RIGHT LOWER QUADRANT 11/11/2012 789.03 ABDOMINAL PAIN RIGHT LOWER QUADRANT 11/11/2012 789.03 ABDOMINAL PAIN RIGHT LOWER QUADRANT 11/11/2012 NORMA DDSJUAREZ 789.03 ABDOMINAL PAIN RIGHT LOWER QUADRANT 11/11/2012 NORMA DDS, JUAREZ Pierre 789.03 ABDOMINAL PAIN RIGHT LOWER QUADRANT 11/11/2012 NICOLE DO, MORAIMA K 789.03 ABDOMINAL PAIN RIGHT LOWER QUADRANT 11/11/2012 TIMOTHY KAN, WOLF S 789.03 ABDOMINAL PAIN RIGHT LOWER QUADRANT 11/11/2012 TIMOTHY KAN, WOLF S 789.03 ABDOMINAL PAIN RIGHT LOWER QUADRANT 11/11/2012 TIMOTHY GAINESN, WOLF S 789.03 ABDOMINAL PAIN RIGHT LOWER QUADRANT 11/11/2012 TIMOTHY KAN, WOLF S 789.03 ABDOMINAL PAIN RIGHT LOWER QUADRANT 11/11/2012 TIMOTHY GAINESN, WOLF S 789.03 ABDOMINAL PAIN RIGHT LOWER QUADRANT 11/11/2012 GAGANDEEP DDS, MELISSA Raymundo 789.03 ABDOMINAL PAIN RIGHT LOWER QUADRANT 11/11/2012 BRITNEY WILCOXSMARIA LUISA 789.03 ABDOMINAL PAIN RIGHT LOWER QUADRANT 11/11/2012 HUSAM ORLANDO APRN 789.03 ABDOMINAL PAIN RIGHT LOWER QUADRANT 11/11/2012 TIMOTHY KAN, WOLF S 789.03 ABDOMINAL PAIN RIGHT LOWER QUADRANT 11/11/2012 TIMOTHY KAN, WOLF S 789.03 ABDOMINAL PAIN RIGHT LOWER QUADRANT 11/11/2012 CASSIE DOMINGUEZ, KADY Raymundo 789.03 ABDOMINAL PAIN RIGHT LOWER QUADRANT 11/11/2012 YU AGUIRRE APRNA S 789.03 ABDOMINAL PAIN RIGHT LOWER QUADRANT 11/11/2012 YU AGUIRRE APRNA S 789.03 ABDOMINAL PAIN RIGHT LOWER QUADRANT 11/11/2012 BRITNEY DDS, MARIA LUISA 789.03 ABDOMINAL PAIN RIGHT LOWER QUADRANT 11/11/2012 MAX WILCOXS, KATHYA Chopra 789.03 ABDOMINAL PAIN RIGHT LOWER QUADRANT 11/20/2012 LJ DDS, KAELA F 564.00 UNSPECIFIED CONSTIPATION 11/20/2012 LJ DDS, KAELA F 784.42 DYSPHONIA 11/20/2012 HUSAM ORLANDO APRN 564.00 UNSPECIFIED CONSTIPATION 11/20/2012 HUSAM ORLANDO APRN 784.42 DYSPHONIA 11/20/2012 WOLF AGUIRRE APRN S 564.00 UNSPECIFIED CONSTIPATION 11/20/2012 WOLF AGUIRRE APRN S 784.42 DYSPHONIA 11/20/2012 564.00 UNSPECIFIED CONSTIPATION 11/20/2012 784.42 DYSPHONIA 11/20/2012 LILLIAN NICOLE DOA K 564.00 UNSPECIFIED CONSTIPATION 11/20/2012 LILLIAN NICOLE DOA K 784.42 DYSPHONIA 11/20/2012 564.00 UNSPECIFIED CONSTIPATION 11/20/2012 784.42 DYSPHONIA 11/20/2012 564.00 UNSPECIFIED CONSTIPATION 11/20/2012 784.42 DYSPHONIA 11/20/2012 564.00 UNSPECIFIED CONSTIPATION 11/20/2012 784.42 DYSPHONIA 11/20/2012 564.00 UNSPECIFIED CONSTIPATION 11/20/2012 784.42 DYSPHONIA 11/20/2012 NORMA DDS, JUAREZ Pierre 564.00 UNSPECIFIED CONSTIPATION 11/20/2012 NORMA DDS, JUAREZ Pierre 784.42 DYSPHONIA 11/20/2012 NORMA WILCOXS, JUAREZ Pierre 564.00 UNSPECIFIED CONSTIPATION 11/20/2012 NORMA WILCOXS, JUAREZ Pierre 784.42 DYSPHONIA 11/20/2012 NICOLE LILLIAN LOCKETTA K 564.00 UNSPECIFIED CONSTIPATION 11/20/2012 NICOLE LILLIAN LOCKETTA K 784.42 DYSPHONIA 11/20/2012 TIMOTHY AUDIO VISUAL ENGINEER, WOLF S 564.00 UNSPECIFIED CONSTIPATION 11/20/2012 TIMOTHY AUDIO VISUAL ENGINEER, WOLF S 784.42 DYSPHONIA 11/20/2012 TIMOTHY AUDIO VISUAL ENGINEER, WOLF S 564.00 UNSPECIFIED CONSTIPATION 11/20/2012 TIMOTHY AUDIO VISUAL ENGINEER, WOLF S 784.42 DYSPHONIA 11/20/2012 TIMOTHY AUDIO VISUAL ENGINEER, WOLF S 564.00 UNSPECIFIED CONSTIPATION 11/20/2012 TIMOTHY AUDIO VISUAL ENGINEER, WOLF S 784.42 DYSPHONIA 11/20/2012 TIMOTHY AUDIO VISUAL ENGINEER, WOLF S 564.00 UNSPECIFIED CONSTIPATION 11/20/2012 TIMOTHY AUDIO VISUAL ENGINEER, WOLF S 784.42 DYSPHONIA 11/20/2012 TIMOTHY AUDIO VISUAL ENGINEER, WOLF S 564.00 UNSPECIFIED CONSTIPATION 11/20/2012 TIMOTHY AUDIO VISUAL ENGINEER, WOLF S 784.42 DYSPHONIA 11/20/2012 WHITE DDS, MELISSA J 564.00 UNSPECIFIED CONSTIPATION 11/20/2012 WHITE DDS, MELISSA J 784.42 DYSPHONIA 11/20/2012 TAN DDS, MARIA LUISA 564.00 UNSPECIFIED CONSTIPATION 11/20/2012 TAN DDS, MARIA LUISA 784.42 DYSPHONIA 11/20/2012 JOHANNY KAN, HUSAM T 564.00 UNSPECIFIED CONSTIPATION 11/20/2012 HUSAM ORLANDO APRN T 784.42 DYSPHONIA 11/20/2012 TIMOTHY AUDIO VISUAL ENGINEER, WOLF S 564.00 UNSPECIFIED CONSTIPATION 11/20/2012 TIMOTHY AUDIO VISUAL ENGINEER, WOLF S 784.42 DYSPHONIA 11/20/2012 TIMOTHY AUDIO VISUAL ENGINEER, WOLF S 564.00 UNSPECIFIED CONSTIPATION 11/20/2012 TIMOTHY AUDIO VISUAL ENGINEER, WOLF S 784.42 DYSPHONIA 11/20/2012 CASSIE DOMINGUEZ, KADY Raymundo 564.00 UNSPECIFIED CONSTIPATION 11/20/2012 CASSIE DOMINGUEZ, KADY Raymundo 784.42 DYSPHONIA 11/20/2012 TIMOTHY AUDIO VISUAL ENGINEER, WOLF S 564.00 UNSPECIFIED CONSTIPATION 11/20/2012 TIMOTHY AUDIO VISUAL ENGINEER, WOLF S 784.42 DYSPHONIA 11/20/2012 TIMOTHY AUDIO VISUAL ENGINEER, WOLF S 564.00 UNSPECIFIED CONSTIPATION 11/20/2012 TIMOTHY AUDIO VISUAL ENGINEER, WOLF S 784.42 DYSPHONIA 11/20/2012 TAN DDS, [...] INFECTION 01/03/2013 465.9 UPPER RESPIRATORY INFECTION 01/03/2013 NORMA DDS, JUAREZ Pierre 465.9 UPPER RESPIRATORY INFECTION 01/03/2013 NORMA DDS, JUAREZ Pierre 465.9 UPPER RESPIRATORY INFECTION 01/03/2013 MORAIMA NICOLE DO K 465.9 UPPER RESPIRATORY INFECTION 01/03/2013 TIMOTHY GAINESN, WOLF S 465.9 UPPER RESPIRATORY INFECTION 01/03/2013 TIMOTHY AUDIO VISUAL ENGINEER, WOLF S 465.9 UPPER RESPIRATORY INFECTION 01/03/2013 TIMOTHY AUDIO VISUAL ENGINEER, WOLF S 465.9 UPPER RESPIRATORY INFECTION 01/03/2013 TIMOTHY GAINESN, WOLF S 465.9 UPPER RESPIRATORY INFECTION 01/03/2013 TIMOTHY AUDIO VISUAL ENGINEER, WOLF S 465.9 UPPER RESPIRATORY INFECTION 01/03/2013 GAGANDEEP MARTINES, MELISSA Raymundo 465.9 UPPER RESPIRATORY INFECTION 01/03/2013 BRITNEY MARTINES, MARIA LUISA 465.9 UPPER RESPIRATORY INFECTION 01/03/2013 HUSAM ORLANDO APRN 465.9 UPPER RESPIRATORY INFECTION 01/03/2013 TIMOTHY GAINESN, WOLF S 465.9 UPPER RESPIRATORY INFECTION 01/03/2013 TIMOTHY KAN, WOLF S 465.9 UPPER RESPIRATORY INFECTION 01/03/2013 CASSIE DOMINGUEZ, KADY Raymundo 465.9 UPPER RESPIRATORY INFECTION 01/03/2013 TIMOTHY AUDIO VISUAL ENGINEER, WOLF S 465.9 UPPER RESPIRATORY INFECTION 01/03/2013 TIMOTHY AUDIO VISUAL ENGINEER, WOLF S 465.9 UPPER RESPIRATORY INFECTION 01/03/2013 BRITNEY WILCOXS, MARIA LUISA 465.9 UPPER RESPIRATORY INFECTION 01/03/2013 MAX WILCOXS, KATHYA Chopra 465.9 UPPER RESPIRATORY INFECTION 02/03/2013 [...] Open Wound Of Head Without Complication 02/03/2013 NICOLE MORAIMA LOCKETT 873.8 Other And Unspecified Open Wound Of Head Without Complication 02/03/2013 TIMOTHY AUDIO VISUAL ENGINEER, WOLF S 873.8 Other And Unspecified Open Wound Of Head Without Complication 02/03/2013 TIMOTHY AUDIO VISUAL ENGINEER, WOLF S 873.8 Other And Unspecified Open Wound Of Head Without Complication 02/03/2013 TIMOTHY AUDIO VISUAL ENGINEER, WOLF S 873.8 Other And Unspecified Open Wound Of Head Without Complication 02/03/2013 TIMOTHY AUDIO VISUAL ENGINEER, WOLF S 873.8 Other And Unspecified Open Wound Of Head Without Complication 02/03/2013 TIMOTHY AUDIO VISUAL ENGINEER, WOLF S 873.8 Other And Unspecified Open Wound Of Head Without Complication 02/03/2013 GAGANDEEP WILCOXS, MELISSA Raymundo 873.8 Other And Unspecified Open Wound Of Head Without Complication 02/03/2013 BRITNEY WILCOXS, MARIA LUISA 873.8 Other And Unspecified Open Wound Of Head Without Complication 02/03/2013 HSUAM ORLANDO APRN 873.8 Other And Unspecified Open Wound Of Head Without Complication 02/03/2013 TIMOTHY AUDIO VISUAL ENGINEER, WOLF S 873.8 Other And Unspecified Open Wound Of Head Without Complication 02/03/2013 TIMOTHY AUDIO VISUAL ENGINEER, WOLF S 873.8 Other And Unspecified Open Wound Of Head Without Complication 02/03/2013 CASSIE DOMINGUEZ, KADY Raymundo 873.8 Other And Unspecified Open Wound Of Head Without Complication 02/03/2013 TIMOTHY AUDIO VISUAL ENGINEER, WOLF S 873.8 Other And Unspecified Open Wound Of Head Without Complication 02/03/2013 TIMOTHY AUDIO VISUAL ENGINEER, WOLF S 873.8 Other And Unspecified Open Wound Of Head Without Complication 02/03/2013 BRITNEY WILCOXS, MARIA LUISA 873.8 Other And Unspecified Open Wound Of Head Without Complication 02/03/2013 MAX WILCOXS, KATHYA Chopra 873.8 Other And Unspecified Open Wound Of Head Without Complication 02/10/2013 MORAIMA NICOLE DO V58.32 SUTURE REMOVAL 02/10/2013 V58.32 SUTURE REMOVAL 02/10/2013 V58.32 SUTURE REMOVAL 02/10/2013 V58.32 SUTURE REMOVAL 02/10/2013 V58.32 SUTURE REMOVAL 02/10/2013 NORMA DDS, JUAREZ Pierre V58.32 SUTURE REMOVAL 02/10/2013 NORMA DDS, JUAREZ Pierre V58.32 SUTURE REMOVAL 02/10/2013 MORAIMA NICOLE DO V58.32 SUTURE REMOVAL 02/10/2013 TIMOTHY AUDIO VISUAL ENGINEER, WOLF S V58.32 SUTURE REMOVAL 02/10/2013 TIMOTHY AUDIO VISUAL ENGINEER, WOFL S V58.32 SUTURE REMOVAL 02/10/2013 TIMOTHY AUDIO VISUAL ENGINEER, WOLF S V58.32 SUTURE REMOVAL 02/10/2013 TIMOTHY AUDIO VISUAL ENGINEER, WOLF S V58.32 SUTURE REMOVAL 02/10/2013 TIMOTHY AUDIO VISUAL ENGINEER, WOLF S V58.32 SUTURE REMOVAL 02/10/2013 GAGANDEEP WILCOXS, MELISSA Raymundo V58.32 SUTURE REMOVAL 02/10/2013 BRITNEY WILCOXSMARIA LUISA V58.32 SUTURE REMOVAL 02/10/2013 JOHANNY KAN, HUSAM Hall V58.32 SUTURE REMOVAL 02/10/2013 TIMOTHY AUDIO VISUAL ENGINEER, WOLF S V58.32 SUTURE REMOVAL 02/10/2013 TIMOTHY AUDIO VISUAL ENGINEER, WOLF S V58.32 SUTURE REMOVAL 02/10/2013 CASSIE DOMINGUEZ, KADY Raymundo V58.32 SUTURE REMOVAL 02/10/2013 TIMOTHY AUDIO VISUAL ENGINEER, WOLF S V58.32 SUTURE REMOVAL 02/10/2013 TIMOTHY AUDIO VISUAL ENGINEER, WOLF S V58.32 SUTURE REMOVAL 02/10/2013 BRITNEY DDS, MARIA LUISA V58.32 SUTURE REMOVAL 02/10/2013 MAX DDS, KATHYA Chopra V58.32 SUTURE REMOVAL 04/03/2013 V65.49 OTHER SPECIFIED COUNSELING 04/03/2013 V76.10 BREAST CANCER SCREENING 04/03/2013 V65.49 OTHER SPECIFIED COUNSELING 04/03/2013 V76.10 BREAST CANCER SCREENING 04/03/2013 V65.49 OTHER SPECIFIED COUNSELING 04/03/2013 V76.10 BREAST CANCER SCREENING 04/03/2013 NORMA DDSJUAREZ V65.49 OTHER SPECIFIED COUNSELING 04/03/2013 NORMA DDSJUAREZ V76.10 BREAST CANCER SCREENING 04/03/2013 NORMA WILCOXSJUAREZ V65.49 OTHER SPECIFIED COUNSELING 04/03/2013 NORMA DDSJUAREZ V76.10 BREAST CANCER SCREENING 04/03/2013 NICOLE DOMORAIMA K V65.49 OTHER SPECIFIED COUNSELING 04/03/2013 NICOLE DOMORAIMA K V76.10 BREAST CANCER SCREENING 04/03/2013 TIMOTHY AUDIO VISUAL ENGINEER, WOLF S V65.49 OTHER SPECIFIED COUNSELING 04/03/2013 TIMOTHY AUDIO VISUAL ENGINEER, WOLF S V76.10 BREAST CANCER SCREENING 04/03/2013 TIMOTHY AUDIO VISUAL ENGINEER, WOLF S V65.49 OTHER SPECIFIED COUNSELING 04/03/2013 TIMOTHY AUDIO VISUAL ENGINEER, WOLF S V76.10 BREAST CANCER SCREENING 04/03/2013 TIMOTHY AUDIO VISUAL ENGINEER, WOLF S V65.49 OTHER SPECIFIED COUNSELING 04/03/2013 TIMOTHY AUDIO VISUAL ENGINEER, WOLF S V76.10 BREAST CANCER SCREENING 04/03/2013 TIMOTHY AUDIO VISUAL ENGINEER, WOLF S V65.49 OTHER SPECIFIED COUNSELING 04/03/2013 TIMOTHY AUDIO VISUAL ENGINEER, WOLF S V76.10 BREAST CANCER SCREENING 04/03/2013 TIMOTHY AUDIO VISUAL ENGINEER, WOLF S V65.49 OTHER SPECIFIED COUNSELING 04/03/2013 TIMOTHY AUDIO VISUAL ENGINEER, WOLF S V76.10 BREAST CANCER SCREENING 04/03/2013 GAGANDEEP WILCOXSMELISSA V65.49 OTHER SPECIFIED COUNSELING 04/03/2013 GAGANDEEP WILCOXSMELISSA V76.10 BREAST CANCER SCREENING 04/03/2013 TAN JERISMARIA LUISA V65.49 OTHER SPECIFIED COUNSELING 04/03/2013 TAN JERIS, MARIA LUISA V76.10 BREAST CANCER SCREENING 04/03/2013 HUSAM ORLANDO APRN V65.49 OTHER SPECIFIED COUNSELING 04/03/2013 HUSAM ORLANDO APRN V76.10 BREAST CANCER SCREENING 04/03/2013 TIMOTHY AUDIO VISUAL ENGINEER, WOLF S V65.49 OTHER SPECIFIED COUNSELING 04/03/2013 TIMOTHY AUDIO VISUAL ENGINEER, WOLF S V76.10 BREAST CANCER SCREENING 04/03/2013 TIMOTHY AUDIO VISUAL ENGINEER, WOLF S V65.49 OTHER SPECIFIED COUNSELING 04/03/2013 TIMOTHY KAN WOLF S V76.10 BREAST CANCER SCREENING 04/03/2013 KADY MATTHEWS MD V65.49 OTHER SPECIFIED COUNSELING 04/03/2013 KADY MATTHEWS MD V76.10 BREAST CANCER SCREENING 04/03/2013 TIMOTHY AUDIO VISUAL ENGINEER, WOLF S V65.49 OTHER SPECIFIED COUNSELING 04/03/2013 TIMOTHY KAN, WOLF S V76.10 BREAST CANCER SCREENING 04/03/2013 TIMOTHY AUDIO VISUAL ENGINEER, WOLF S V65.49 OTHER SPECIFIED COUNSELING 04/03/2013 TIMOTHY KAN, WOLF S V76.10 BREAST CANCER SCREENING 04/03/2013 TAN JERISMARIA LUISA V65.49 OTHER SPECIFIED COUNSELING 04/03/2013 TAN DDSMARIA LUISA V76.10 BREAST CANCER SCREENING 04/03/2013 MAX WILCOXSKATHYA V65.49 OTHER SPECIFIED COUNSELING 04/03/2013 MAX WILCOXS, KATHYA Chopra V76.10 BREAST CANCER SCREENING 03/01/2014 CARITO DOMINGUEZ, BOB Pierre Ot 272.4 HYPERLIPIDEMIA NEC/NOS 03/01/2014 CARITO DOMINGUEZ, BOB Pierre Ot 311 DEPRESSIVE DISORDER NEC 03/01/2014 CARITO DOMINGUEZ, BOB Pierre Ot 564.00 UNSPEC CONSTIPATION 10/13/2014 HUSAM ORLANDO APRN 723.1 PAIN NECK 10/13/2014 WOLF AGUIRRE APRN S 723.1 PAIN NECK 10/13/2014 WOLF AGUIRRE APRN S 723.1 PAIN NECK 10/13/2014 KADY MATTHEWS MD 723.1 PAIN NECK 10/13/2014 WOLF AGUIRRE APRN S 723.1 PAIN NECK 10/13/2014 WOLF AGUIRRE APRN S 723.1 PAIN NECK 10/13/2014 BRITNEY WILCOXSMARIA LUISA 723.1 PAIN NECK 10/13/2014 MAX MARTINES, KATHYA Chopra 723.1 PAIN NECK 10/18/2014 YU AGUIRRE APRNA S 535.50 GASTRITIS UNSPEC 10/18/2014 YU AGUIRRE APRNA S 535.50 GASTRITIS UNSPEC 10/18/2014 KADY MATTHEWS MD 535.50 GASTRITIS UNSPEC 10/18/2014 YU AGUIRRE APRNA S 535.50 GASTRITIS UNSPEC 10/18/2014 YU AGUIRRE APRNA S 535.50 GASTRITIS UNSPEC 10/18/2014 BRITNEY MARTINES, MARIA LUISA 535.50 GASTRITIS UNSPEC 10/18/2014 MAX MARTINES, KATHYA Chopra 535.50 GASTRITIS UNSPEC 11/07/2014 KADY MATTHEWS MD Ot 272.0 PURE HYPERCHOLESTEROLEM 11/07/2014 KADY MATTHEWS MD Ot 401.9 HYPERTENSION NOS 11/07/2014 KADY MATTHEWS MD Ot 414.01 CORONARY ATHEROSCLEROSIS OF [place] CORON 11/07/2014 KADY MATTHEWS MD Ot 427.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 NEC 11/07/2014 KADY MATTHEWS MD Ot 530.81 ESOPHAGEAL REFLUX 11/07/2014 KADY MATTHEWS MD Ot 558.9 NONINF GASTROENTERIT NEC 11/07/2014 KADY MATTHEWS MD Ot 564.00 UNSPEC CONSTIPATION 11/07/2014 KADY MATTHEWS MD Ot V04.81 ND FOR PROPHYLACTIC VACCIN AND INOCULATI 01/03/2015 WOLF AGUIRRE APRN S 706.1 ACNE 01/03/2015 WOLF AGUIRRE APRN S 719.46 PAIN- KNEE 01/03/2015 WOLF AGUIRRE APRN S 706.1 ACNE 01/03/2015 WOLF AGUIRRE APRN S 719.46 PAIN- KNEE 01/03/2015 TAN DDS, MARIA LUISA 706.1 ACNE 01/03/2015 TAN DDS, MARIA LUISA 719.46 PAIN- KNEE 01/03/2015 MAX DDS, KATHYA Chopra 706.1 ACNE 01/03/2015 MAX DDS, KATHYA Chopra 719.46 PAIN- KNEE 02/09/2015 WOLF AGUIRRE APRN S 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 02/09/2015 TAN DDS, MARIA LUISA 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 02/09/2015 MAX DDS, KATHYA Chopra 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 02/23/2015 TAN DDS, MARIA LUISA 786.2 COUGH 02/23/2015 MAX DDS, KATHYA Chopra 786.2 COUGH 07/27/2015 VIRGINIA DOMINGUEZ, FLO Rdz Ot 272.4 HYPERLIPIDEMIA NEC/NOS 07/27/2015 VIRGINIA DOMINGUEZ, FLO Rdz Ot 300.00 ANXIETY STATE NOS 07/27/2015 VIRGINIA DOMINGUEZ, FLO Rdz Ot 311 DEPRESSIVE DISORDER NEC 07/27/2015 VIRGINIA DOMINGUEZ, FLO Rdz Ot 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 07/27/2015 VIRGINIA DOMINGUEZ, FLO Rdz Ot 414.00 CORON ATHEROSCLER NOS TYPE VESSEL, NATIV 07/27/2015 VIRGINIA DOMINGUEZ, FLO Rdz Ot 427.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 NEC 07/27/2015 VIRGINIA DOMINGUEZ, FLO Rdz Ot 530.81 ESOPHAGEAL REFLUX 07/27/2015 VIRGINIA DOMINGUEZ, FLO Rdz Ot 786.59 CHEST PAIN NEC 07/27/2015 VIRGINIA DOMINGUEZ, FLO Rdz Ot V15.81 HX OF PAST NONCOMPLIANCE 07/27/2015 FLO COLEMAN MD Ot V45.81 AORTOCORONARY BYPASS 08/23/2015 DEEPTI MATHUR APRN Ot V76.12 08/23/2015 CARITO DOMINGUEZ, BOB Pierre Ot V72.84 08/23/2015 WOLF AGUIRRE Ot V76.12 08/23/2015 JERMAINE JIMENES Ot 427.9 08/23/2015 JERMAINE JIMENES Ot 427.9 08/31/2015 JERMAINE JIMENES Ot 427.9 CARDIAC DYSRHYTHMIA NOS 09/27/2015 WOLF AGUIRREP Ot Z12.31 10/26/2015 KAREEN DEEPTIPB Ann APRN Ot V76.12 10/26/2015 CARITO DOMINGUEZ, BOB Pierre Ot V72.84 10/26/2015 WOLF AGUIRRE Ot V76.12 10/26/2015 WOLF AGUIRRE Ot Z12.31 02/07/2016 FRED DOS SANTOS MD [...] FRED DOS SANTOS MD Ot G25.0 02/07/2016 FRED DOS SANTOS MD Ot I10 02/07/2016 FRED DOS SANTOS MD Ot I25.5 02/07/2016 FRED DOS SANTOS MD Ot R07.2 02/07/2016 FRED DOS SANTOS MD Ot R19.7 02/07/2016 FRED DOS SANTOS MD Ot R51 05/02/2016 CASSIE DOMINGUEZ, KADY Raymundo Ot D62 ACUTE POSTHEMORRHAGIC ANEMIA 05/02/2016 KADY MATTHEWS MD Ot D64.9 ANEMIA, UNSPECIFIED 05/02/2016 KADY MATTHEWS MD Ot E78.5 HYPERLIPIDEMIA, UNSPECIFIED 05/02/2016 KADY MATTHEWS MD Ot F32.9 MAJOR DEPRESSIVE DISORDER, SINGLE EPISOD 05/02/2016 KADY MATTHEWS MD, Ot F41.9 ANXIETY DISORDER, UNSPECIFIED 05/02/2016 KADY MATTHEWS MD Ot I10 ESSENTIAL (PRIMARY) HYPERTENSION 05/02/2016 KADY MATTHEWS MD, Ot I25.10 ATHSCL HEART DISEASE OF [place] CORONARY 05/02/2016 KADY MATTHEWS MD Ot I49.3 VENTRICULAR PREMATURE DEPOLARIZATION 05/02/2016 KADY MATTHEWS MD, Ot K21.9 GASTRO-ESOPHAGEAL REFLUX DISEASE WITHOUT 05/02/2016 KADY MATTHEWS MD, Ot K59.00 CONSTIPATION, UNSPECIFIED 05/02/2016 KADY MATTHEWS MD Ot R10.13 EPIGASTRIC PAIN 05/02/2016 KADY MATTHEWS MD, Ot S09.90XA UNSPECIFIED INJURY OF HEAD, INITIAL ENCO 05/02/2016 KADY MATTHEWS MD, Ot S72.142A DISPLACED INTERTROCHANTERIC FRACTURE OF 05/02/2016 KADY MATTHEWS MD Ot W19.XXXA UNSPECIFIED FALL, INITIAL ENCOUNTER 05/02/2016 KADY MATTHEWS MD Ot Y92.513 SHOP (COMMERCIAL) PLACE 05/02/2016 KADY MATTHEWS MD Ot Z95.1 PRESENCE OF AORTOCORONARY BYPASS GRAFT 05/02/2016 DEEPTI MATHUR APRN Ot V76.12 OTH SCREEN MAMMO-MALIGN NEOPLASM OF [place] 05/02/2016 CARITO DOMINGUEZ, BOB Pierre Ot V72.84 EXAM PRE-OPERATIVE NOS 05/02/2016 WOLF AGUIRRE Ot V76.12 OTH SCREEN MAMMO-MALIGN NEOPLASM OF [place] 05/02/2016 WOLF AGUIRRE Ot Z12.31 ENCNTR SCREEN MAMMOGRAM FOR MALIGNANT NE 05/04/2016 DEEPTI MATHUR APRN Ot V76.12 OTH SCREEN MAMMO-MALIGN NEOPLASM OF [place] 05/04/2016 BOB ARZATE MD Ot V72.84 EXAM PRE-OPERATIVE NOS 05/04/2016 WOLF AGUIRRE FILTER TANK TENDER HELPER Ot V76.12 OTH SCREEN MAMMO-MALIGN NEOPLASM OF [place] 05/04/2016 WOLF AGUIRRE FILTER TANK TENDER HELPER Ot Z12.31 ENCNTR SCREEN MAMMOGRAM FOR MALIGNANT NE 05/04/2016 DEEPTI MATHUR APRN Ot V76.12 OTH SCREEN MAMMO-MALIGN NEOPLASM OF [place] 05/04/2016 CARITO DOMINGUEZ, BOB M Ot V72.84 EXAM PRE-OPERATIVE NOS 05/04/2016 WOLF AGUIRRE FILTER TANK TENDER HELPER Ot V76.12 OTH SCREEN MAMMO-MALIGN NEOPLASM OF [place] 05/04/2016 WOLF AGUIRRE FILTER TANK TENDER HELPER Ot Z12.31 ENCNTR SCREEN MAMMOGRAM FOR MALIGNANT NE 05/06/2016 FRANCE NAVARRO MD Ot D64.9 ANEMIA, UNSPECIFIED 05/06/2016 FRANCE NAVARRO MD Ot F32.9 MAJOR DEPRESSIVE DISORDER, SINGLE EPISOD 05/06/2016 FRANCE NAVARRO MD E Ot 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 05/06/2016 FRANCE NAVARRO MD E Ot I10 ESSENTIAL (PRIMARY) HYPERTENSION 05/06/2016 FRANCE NAVARRO MD E Ot I25.10 ATHSCL HEART DISEASE OF [place] CORONARY 05/06/2016 FRANCE NAVARRO MD E Ot I49.3 VENTRICULAR PREMATURE DEPOLARIZATION 05/06/2016 FRANCE NAVARRO MD E Ot K21.9 GASTRO-ESOPHAGEAL REFLUX DISEASE WITHOUT 05/06/2016 FRANCE NAVARRO MD E Ot K59.00 CONSTIPATION, UNSPECIFIED 05/06/2016 FRANCE NAVARRO MD E Ot R45.1 RESTLESSNESS AND AGITATION 05/06/2016 FRANCE NAVARRO MD E Ot S09.90XD UNSPECIFIED INJURY OF HEAD, SUBSEQUENT E 05/06/2016 FRANCE NAVARRO MD E Ot S72.142D DISPL INTERTROCH FX L FEMUR, SUBS FOR CL 05/06/2016 FRANCE NAVARRO MD E Ot W19.XXXD UNSPECIFIED FALL, SUBSEQUENT ENCOUNTER 05/06/2016 FRANCE NAVARRO MD E Ot Y92.513 SHOP (COMMERCIAL) PLACE 05/06/2016 FRANCE NAVARRO MD E Ot Z95.1 PRESENCE OF AORTOCORONARY BYPASS GRAFT 05/12/2016 FRANCE NAVARRO MD Ot D64.9 ANEMIA, UNSPECIFIED 05/12/2016 FRANCE NAVARRO MD Ot F32.9 MAJOR DEPRESSIVE DISORDER, SINGLE EPISOD 05/12/2016 FRANCE NAVARRO MD Ot 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 05/12/2016 FRANCE NAVARRO MD Ot I10 ESSENTIAL (PRIMARY) HYPERTENSION 05/12/2016 FRANCE NAVARRO MD Ot I25.10 ATHSCL HEART DISEASE OF [place] CORONARY 05/12/2016 FRANCE NAVARRO MD Ot I49.3 VENTRICULAR PREMATURE DEPOLARIZATION 05/12/2016 FRANCE NAVARRO MD Ot K21.9 GASTRO-ESOPHAGEAL REFLUX DISEASE WITHOUT 05/12/2016 FRANCE NAVARRO MD Ot K59.00 CONSTIPATION, UNSPECIFIED 05/12/2016 FRANCE NAVARRO MD Ot N39.0 URINARY TRACT INFECTION, SITE NOT SPECIF 05/12/2016 FRANCE NAVARRO MD Ot R45.1 RESTLESSNESS AND AGITATION 05/12/2016 FRANCE NAVARRO MD Ot S09.90XD UNSPECIFIED INJURY OF HEAD, SUBSEQUENT E 05/12/2016 FRANCE NAVARRO MD Ot S72.142D DISPL INTERTROCH FX L FEMUR, SUBS FOR CL 05/12/2016 FRANCE NAVARRO MD Ot W19.XXXD UNSPECIFIED FALL, SUBSEQUENT ENCOUNTER 05/12/2016 FRANCE NAVARRO MD Ot Y92.513 SH[address] (COMMERCIAL) PLACE 05/12/2016 FRANCE NAVARRO MD Ot Z95.1 PRESENCE OF AORTOCORONARY BYPASS GRAFT 08/10/2016 MEI HILL MD Ot F32.9 MAJOR DEPRESSIVE DISORDER, SINGLE EPISOD 08/10/2016 MEI HILL MD Ot F41.9 ANXIETY DISORDER, UNSPECIFIED 08/10/2016 MEI HILL MD Ot I10 ESSENTIAL (PRIMARY) HYPERTENSION 08/10/2016 MEI HILL MD Ot R10.32 LEFT LOWER QUADRANT PAIN 08/10/2016 MEI HILL MD Ot Z79.82 TIN RECOVERY WORKER (CURRENT) USE OF ASPIRIN 08/10/2016 MEI HILL MD Ot Z79.899 OTHER TIN RECOVERY WORKER (CURRENT) DRUG THERAPY 08/27/2016 DEEPTI MATHUR APRN Ot V76.12 OTH SCREEN MAMMO-MALIGN NEOPLASM OF [place] 08/27/2016 CARITO DOMINGUEZ, BOB Pierre Ot V72.84 EXAM PRE-OPERATIVE NOS 08/27/2016 WOLF AGUIRRE Ot V76.12 OT SCREEN MAMMO-MALIGN NEOPLASM OF [place] 08/27/2016 WOLF AGUIRRE EUGENIA Ot Z12.31 ENCNTR SCREEN MAMMOGRAM FOR MALIGNANT NE 10/17/2016 Jazlyn Mcneal A 296.34 10/17/2016 Jazlyn Mcneal A F33.3 11/05/2016 Albino Mcneali W 272.4 OTHER AND UNSPECIFIED HYPERLIPIDEMIA 11/05/2016 Fredis Jazlyn W 290.41 11/05/2016 Mcneal Jazlyn W 296.34 11/05/2016 Albino Mcneali W 338.2 CHRONIC PAIN 11/05/2016 Albino Mcneali W 401.0 11/05/2016 Fredis Jazlyn W 414.01 11/05/2016 Fredis Jazlyn W 564.00 CONSTIPATION, UNSPECIFIED 11/05/2016 Albino Mcneali W 781.99 11/05/2016 Albino Mcneali W 783.21 11/05/2016 Fredis Jazlyn W 783.7 11/05/2016 Fredis Jazlyn W E78.5 HYPERLIPIDEMIA, UNSPECIFIED 11/05/2016 Fredis Jazlyn W F01.51 11/05/2016 Albino Mcneali W F33.3 11/05/2016 Fredis Jazlyn W G89.29 OTHER CHRONIC PAIN 11/05/2016 Albino Mcneali W I10 ESSENTIAL (PRIMARY) HYPERTENSION 11/05/2016 Albino Mcneali W I25.10 ATHSCL HEART DISEASE OF [place] CORONARY ARTERY W/O ANG PCTRS 11/05/2016 Albino Mcneali W K59.00 CONSTIPATION, UNSPECIFIED 11/05/2016 Albino Mcneali W R29.6 REPEATED FALLS 11/05/2016 Albino Mcneali W R62.7 ADULT FAILURE TO THRIVE 11/05/2016 Albino Mcneali W R63.4 ABNORMAL WEIGHT LOSS 11/05/2016 Jazlyn Mcneal W V05.9 NEED FOR PROPHYLACTIC VACCINATION AND INOCULATION AGAINST UNSPECIFIED SINGLE DISEASE 11/05/2016 Jazlyn Mcneal W Z23 ENCOUNTER FOR IMMUNIZATION 03/08/2017 VAN GILLETTE APRN Ot F41.9 ANXIETY DISORDER, UNSPECIFIED 03/08/2017 VAN GILLETTE APRN Ot I10 ESSENTIAL (PRIMARY) HYPERTENSION 03/08/2017 VAN GILLETTE APRN Ot I25.10 ATHSCL HEART DISEASE OF [place] CORONARY 03/08/2017 VAN GILLETTE APRN Ot M25.551 PAIN IN RIGHT HIP 03/08/2017 VAN GILLETTE APRN Ot M25.552 PAIN IN LEFT HIP 03/08/2017 VAN GILLETTE APRN Ot Z79.01 TIN RECOVERY WORKER (CURRENT) USE OF ANTICOAGULANT 03/08/2017 VAN GILLETTE APRN Ot Z79.82 HALFWAY (CURRENT) USE OF ASPIRIN 03/08/2017 VAN GILLETTE APRN Ot Z79.899 OTHER HALFWAY (CURRENT) DRUG THERAPY 03/08/2017 VAN GILLETTE APRN Ot Z91.14 PATIENT'S OTHER NONCOMPLIANCE WITH MEDIC 03/08/2017 VAN GILLETTE APRN Ot Z95.1 PRESENCE OF AORTOCORONARY BYPASS GRAFT 03/08/2017 VAN GILLETTE APRN Ot Z96.641 PRESENCE OF RIGHT ARTIFICIAL HIP JOINT 03/08/2017 Jazlyn Mcneal W 268.9 UNSPECIFIED VITAMIN D DEFICIENCY 03/08/2017 Jazlyn Mcneal W 272.4 OTHER AND UNSPECIFIED HYPERLIPIDEMIA 03/08/2017 Jazlyn Mcnela W 290.41 03/08/2017 Jazlyn Mcneal W 300.00 03/08/2017 Jazlyn Mcneal W 427.31 ATRIAL FIBRILLATION 03/08/2017 Jazlyn Mcneal W 429.2 03/08/2017 Jazlyn Mcneal W 530.81 03/08/2017 Jazlyn Mcneal W 564.09 03/08/2017 Jazlyn Mcneal W E55.9 VITAMIN D DEFICIENCY, UNSPECIFIED 03/08/2017 Jazlyn Mcneal W E78.5 HYPERLIPIDEMIA, UNSPECIFIED 03/08/2017 Jazlyn Mcneal W F01.51 VASCULAR DEMENTIA WITH BEHAVIORAL DISTURBANCE 03/08/2017 Jazlyn Mcneal W F41.9 ANXIETY DISORDER, UNSPECIFIED 03/08/2017 Jazlyn Mcneal W I25.10 ATHSCL HEART DISEASE OF [place] CORONARY ARTERY W/O ANG PCTRS 03/08/2017 Mcneal, Jazlyn W I48.0 PAROXYSMAL ATRIAL FIBRILLATION 03/08/2017 Jazlyn Mcneal W K21.9 GASTRO-ESOPHAGEAL REFLUX DISEASE WITHOUT ESOPHAGITIS 03/08/2017 Jazlyn Mcneal W K59.09 OTHER CONSTIPATION 03/08/2017 Jazlyn Mcneal W V58.61 LONG-TERM (CURRENT) USE OF ANTICOAGULANTS 03/08/2017 Jazlyn Mcneal W Z79.01 HALFWAY (CURRENT) USE OF ANTICOAGULANTS 03/11/2017 VAN GILLETTE APRN Ot F41.9 ANXIETY DISORDER, UNSPECIFIED 03/11/2017 VAN GILLETTE APRN Ot I10 ESSENTIAL (PRIMARY) HYPERTENSION 03/11/2017 VAN GILLETTE APRN Ot I25.10 ATHSCL HEART DISEASE OF [place] CORONARY 03/11/2017 VAN GILLETTE APRN Ot M25.551 PAIN IN RIGHT HIP 03/11/2017 VAN GILLETTE APRN Ot M25.552 PAIN IN LEFT HIP 03/11/2017 VAN GILLETTE APRN Ot Z79.01 HALFWAY (CURRENT) USE OF ANTICOAGULANT 03/11/2017 VAN GILLETTE APRN Ot Z79.82 HALFWAY (CURRENT) USE OF ASPIRIN 03/11/2017 VAN GILLETTE APRN Ot Z79.899 OTHER TIN RECOVERY WORKER (CURRENT) DRUG THERAPY 03/11/2017 VAN GILLETTE APRN [...] APRN Ot I25.10 ATHSCL HEART DISEASE OF [place] CORONARY 03/11/2017 VAN GILLETTE APRN Ot M25.551 PAIN IN RIGHT HIP 03/11/2017 VAN GILLETTE APRN Ot M25.552 PAIN IN LEFT HIP 03/11/2017 VAN GILLETTE APRN Ot Z79.01 HALFWAY (CURRENT) USE OF ANTICOAGULANT 03/11/2017 VAN GILLETTE APRN Ot Z79.82 HALFWAY (CURRENT) USE OF ASPIRIN 03/11/2017 VAN GILLETTE APRN Ot Z79.899 OTHER HALFWAY (CURRENT) DRUG THERAPY 03/11/2017 VAN GILLETTE APRN Ot Z91.14 PATIENT'S OTHER NONCOMPLIANCE WITH MEDIC 03/11/2017 VAN GILLETTE APRN Ot Z95.1 PRESENCE OF AORTOCORONARY BYPASS GRAFT 03/11/2017 VAN GILLETTE APRN Ot Z96.641 PRESENCE OF RIGHT ARTIFICIAL HIP JOINT 07/30/2017 MEI HILL MD Ot E78.00 PURE HYPERCHOLESTEROLEMIA, UNSPECIFIED 07/30/2017 MEI HILL MD Ot F32.9 MAJOR DEPRESSIVE DISORDER, SINGLE EPISOD 07/30/2017 MEI HILL MD, Ot F41.9 ANXIETY DISORDER, UNSPECIFIED 07/30/2017 MEI HILL MD Ot I10 ESSENTIAL (PRIMARY) HYPERTENSION 07/30/2017 MEI HILL MD Ot I25.10 ATHSCL HEART DISEASE OF [place] CORONARY 07/30/2017 MEI HILL MD Ot K21.9 GASTRO-ESOPHAGEAL REFLUX DISEASE WITHOUT 07/30/2017 MEI HILL MD Ot K59.00 CONSTIPATION, UNSPECIFIED 07/30/2017 MEI HILL MD Ot M19.90 UNSPECIFIED OSTEOARTHRITIS, UNSPECIFIED 07/30/2017 MEI HILL MD Ot R10.84 GENERALIZED ABDOMINAL PAIN 07/30/2017 MEI HILL MD Ot Z79.01 HALFWAY (CURRENT) USE OF ANTICOAGULANT 07/30/2017 MEI HILL MD Ot Z79.82 HALFWAY (CURRENT) USE OF ASPIRIN 07/30/2017 MEI HILL MD Ot Z82.49 FAMILY HX OF ISCHEM HEART DIS AND OTH DI 07/30/2017 MEI HILL MD Ot Z87.440 PERSONAL HISTORY OF URINARY (TRACT) INFE 07/30/2017 MEI HILL MD Ot Z87.448 PERSONAL HISTORY OF OTHER DISEASES OF UR 07/30/2017 MEI HILL MD Ot Z95.1 PRESENCE OF AORTOCORONARY BYPASS GRAFT 07/30/2017 MEI HILL MD Ot Z96.641 PRESENCE OF RIGHT ARTIFICIAL HIP JOINT 08/01/2017 MEI HILL MD Ot E78.00 PURE HYPERCHOLESTEROLEMIA, UNSPECIFIED 08/01/2017 MEI HILL MD, Ot F32.9 MAJOR DEPRESSIVE DISORDER, SINGLE EPISOD 08/01/2017 MEI HILL MD, Ot F41.9 ANXIETY DISORDER, UNSPECIFIED 08/01/2017 MEI HILL MD Ot I10 ESSENTIAL (PRIMARY) HYPERTENSION 08/01/2017 MEI HILL MD, Ot I25.10 ATHSCL HEART DISEASE OF [place] CORONARY 08/01/2017 MEI HILL MD, Ot K21.9 GASTRO-ESOPHAGEAL REFLUX DISEASE WITHOUT 08/01/2017 MIE HILL MD, Ot K59.00 CONSTIPATION, UNSPECIFIED 08/01/2017 MEI HILL MD, Ot M19.90 UNSPECIFIED OSTEOARTHRITIS, UNSPECIFIED 08/01/2017 MEI HILL MD Ot R10.84 GENERALIZED ABDOMINAL PAIN 08/01/2017 MEI HILL MD, Ot Z79.01 HALFWAY (CURRENT) USE OF ANTICOAGULANT 08/01/2017 MEI HILL MD Ot Z79.82 TIN RECOVERY WORKER (CURRENT) USE OF ASPIRIN 08/01/2017 MEI HILL MD Ot Z82.49 FAMILY HX OF ISCHEM HEART DIS AND OTH DI 08/01/2017 MEI HILL MD Ot Z87.440 PERSONAL HISTORY OF URINARY (TRACT) INFE 08/01/2017 MEI HILL MD Ot Z87.448 PERSONAL HISTORY OF OTHER DISEASES OF UR 08/01/2017 MEI HILL MD Ot Z95.1 PRESENCE OF AORTOCORONARY BYPASS GRAFT 08/01/2017 MEI HILL MD Ot Z96.641 PRESENCE OF RIGHT ARTIFICIAL HIP JOINT 09/13/2017 DEEPTI MATHUR APRN Ot V76.12 OTH SCREEN MAMMO-MALIGN NEOPLASM OF [place] 09/13/2017 CARITO DOMINGUEZ, BOB Pierre Ot V72.84 EXAM PRE-OPERATIVE NOS 09/13/2017 WOLF AGUIRRE Ot V76.12 OTH SCREEN MAMMO-MALIGN NEOPLASM OF [place] 09/13/2017 TIMOTHY, WOLF FILTER TANK TENDER HELPER Ot Z12.31 ENCNTR SCREEN MAMMOGRAM FOR MALIGNANT NE 09/16/2017 SHANDA SAINI MD Ot R10.9 UNSPECIFIED ABDOMINAL PAIN 09/16/2017 SHANDA SAINI MD Ot Z01.818 ENCOUNTER FOR OTHER PREPROCEDURAL EXAMIN 09/16/2017 SHANDA SAINI MD Ot R10.9 UNSPECIFIED ABDOMINAL PAIN 09/16/2017 SHANDA SAINI MD, Ot Z01.818 ENCOUNTER FOR OTHER PREPROCEDURAL EXAMIN 09/16/2017 SHANDA SAINI MD Ot R10.9 UNSPECIFIED ABDOMINAL PAIN 09/16/2017 SHANDA SAINI MD, Ot Z01.818 ENCOUNTER FOR OTHER PREPROCEDURAL EXAMIN 09/18/2017 SHADNA SAINI MD, Ot F03.90 UNSPECIFIED DEMENTIA WITHOUT BEHAVIORAL 09/18/2017 SHANDA SAINI MD Ot I25.10 ATHSCL HEART DISEASE OF [place] CORONARY 09/18/2017 SHANDA SAINI MD Ot K21.0 GASTRO-ESOPHAGEAL REFLUX DISEASE WITH ES 09/18/2017 SHANDA SAINI MD Ot K25.9 GASTRIC ULCER, UNSP ACUTE OR CHRONIC, 09/18/2017 SHANDA SAINI MD Ot K29.70 GASTRITIS, UNSPECIFIED, WITHOUT BLEEDING 09/18/2017 SHANDA SAINI MD Ot K44.9 DIAPHRAGMATIC HERNIA WITHOUT OBSTRUCTION 09/18/2017 SHANDA SAINI MD Ot K59.00 CONSTIPATION, UNSPECIFIED 09/18/2017 SHANDA SAINI MD Ot K64.1 SECOND DEGREE HEMORRHOIDS 09/18/2017 SHANDA SAINI MD Ot R19.7 DIARRHEA, UNSPECIFIED 09/18/2017 SHANDA SAINI MD Ot Z79.82 HALFWAY (CURRENT) USE OF ASPIRIN 09/18/2017 SHANDA SAINI MD, Ot Z79.899 OTHER HALFWAY (CURRENT) DRUG THERAPY 09/18/2017 SHANDA SAINI MD Ot Z95.1 PRESENCE OF AORTOCORONARY BYPASS GRAFT 09/18/2017 SHANDA SAINI MD Ot Z96.643 PRESENCE OF ARTIFICIAL HIP JOINT, BILATE 09/19/2017 SHANDA SAINI MD Ot F03.90 UNSPECIFIED DEMENTIA WITHOUT BEHAVIORAL 09/19/2017 SHANDA SAINI MD Ot I25.10 ATHSCL HEART DISEASE OF [place] CORONARY 09/19/2017 SHANDA SAINI MD Ot K21.0 GASTRO-ESOPHAGEAL REFLUX DISEASE WITH ES 09/19/2017 SHANDA SAINI MD, Ot K25.9 GASTRIC ULCER, UNSP ACUTE OR CHRONIC, 09/19/2017 SHANDA SAINI MD, Ot K29.70 GASTRITIS, UNSPECIFIED, WITHOUT BLEEDING 09/19/2017 SHANDA SAINI MD, Ot K44.9 DIAPHRAGMATIC HERNIA WITHOUT OBSTRUCTION 09/19/2017 SHANDA SAINI MD, Ot K59.00 CONSTIPATION, UNSPECIFIED 09/19/2017 SHANDA SAINI MD, Ot K64.1 SECOND DEGREE HEMORRHOIDS 09/19/2017 SHANDA SAINI MD Ot Z79.82 TIN RECOVERY WORKER (CURRENT) USE OF ASPIRIN 09/19/2017 SHANDA SAINI MD, Ot Z79.899 OTHER TIN RECOVERY WORKER (CURRENT) DRUG THERAPY 09/19/2017 SHANDA SAINI MD Ot Z95.1 PRESENCE OF AORTOCORONARY BYPASS GRAFT 09/19/2017 SHANDA SAINI MD Ot Z96.643 PRESENCE OF ARTIFICIAL HIP JOINT, BILATE 09/25/2017 DEEPTI MATHUR AUDIO VISUAL ENGINEER Ot V76.12 OTH SCREEN MAMMO-MALIGN NEOPLASM OF [place] 09/25/2017 CARITO DOMINGUEZ, BOB Pierre Ot V72.84 EXAM PRE-OPERATIVE NOS 09/25/2017 WOLF AGUIRRE Ot V76.12 OTH SCREEN MAMMO-MALIGN NEOPLASM OF [place] 09/25/2017 WOLF AGUIRRE FILTER TANK TENDER HELPER Ot Z12.31 ENCNTR SCREEN MAMMOGRAM FOR MALIGNANT NE 09/27/2017 SHANDA SAINI MD Ot F03.90 UNSPECIFIED DEMENTIA WITHOUT BEHAVIORAL 09/27/2017 SHANDA SAINI MD Ot I25.10 ATHSCL HEART DISEASE OF [place] CORONARY 09/27/2017 SHANDA SAINI MD Ot K21.0 GASTRO-ESOPHAGEAL REFLUX DISEASE WITH ES 09/27/2017 SHANDA SAINI MD Ot K25.9 GASTRIC ULCER, UNSP ACUTE OR CHRONIC, 09/27/2017 SHANDA SAINI MD Ot K29.70 GASTRITIS, UNSPECIFIED, WITHOUT BLEEDING 09/27/2017 SHANDA SAINI MD, Ot K44.9 DIAPHRAGMATIC HERNIA WITHOUT OBSTRUCTION 09/27/2017 SHANDA SAINI MD, Ot K59.00 CONSTIPATION, UNSPECIFIED 09/27/2017 SHANDA SAINI MD, Ot K64.1 SECOND DEGREE HEMORRHOIDS 09/27/2017 SHANDA SAINI MD, Ot R19.7 DIARRHEA, UNSPECIFIED 09/27/2017 SHANDA SAINI MD, Ot Z79.82 TIN [employer]OV[employer] WORKER (CURRENT) USE OF ASPIRIN 09/27/2017 SHANDA SAINI MD, Ot Z79.899 OTHER TIN RECOVERY WORKER (CURRENT) DRUG THERAPY 09/27/2017 SHANDA SAINI MD, Ot Z95.1 PRESENCE OF AORTOCORONARY BYPASS GRAFT 09/27/2017 SHANDA SAINI MD, Ot Z96.643 PRESENCE OF ARTIFICIAL HIP JOINT, BILATE 12/13/2017 MARILEE HERB W 294.20 DEMENTIA, UNSPECIFIED, IN CONDITIONS CLASSIFIED ELSEWHERE WITHOUT BEHAVIORAL DISTURBANCE 12/13/2017 MARILEE, HERB W F03.90 UNSPECIFIED DEMENTIA WITHOUT BEHAVIORAL DISTURBANCE 12/13/2017 MARILEE HERB W 294.20 DEMENTIA, UNSPECIFIED, IN CONDITIONS CLASSIFIED ELSEWHERE WITHOUT BEHAVIORAL DISTURBANCE 12/13/2017 HUNT, HERB W F03.90 UNSPECIFIED DEMENTIA WITHOUT BEHAVIORAL DISTURBANCE 12/16/2017 MARILEE, HERB W 294.20 DEMENTIA, UNSPECIFIED, IN CONDITIONS CLASSIFIED ELSEWHERE WITHOUT BEHAVIORAL DISTURBANCE 12/16/2017 MARILEE, HERB W F03.90 UNSPECIFIED DEMENTIA WITHOUT BEHAVIORAL DISTURBANCE 12/30/2017 MARILEE, HERB W 268.9 12/30/2017 HUNT, HERB W 272.4 OTHER AND UNSPECIFIED HYPERLIPIDEMIA 12/30/2017 MARILEE, HERB W 290.41 12/30/2017 HUNT, HERB W 294.20 DEMENTIA, UNSPECIFIED, IN CONDITIONS CLASSIFIED ELSEWHERE WITHOUT BEHAVIORAL DISTURBANCE 12/30/2017 MARILEE, HERB W 296.30 12/30/2017 MARILEE HEBR A 297.1 12/30/2017 MARILEE, HERB W 300.02 12/30/2017 MARILEE, HERB W 300.82 12/30/2017 MARILEE, HERB W 401.0 12/30/2017 MARILEE HERB W 414.01 CORONARY ATHEROSCLEROSIS OF [place] CORONARY ARTERY 12/30/2017 MARILEE HERB W 564.1 12/30/2017 LORI HUNTL W 780.52 INSOMNIA, UNSPECIFIED 12/30/2017 LORI HUNTL W E55.9 VITAMIN D DEFICIENCY, UNSPECIFIED 12/30/2017 LORI HUNTL W E78.5 HYPERLIPIDEMIA, UNSPECIFIED 12/30/2017 LORI HUNTL W F01.51 12/30/2017 MARILEE, HERB W F03.90 UNSPECIFIED DEMENTIA WITHOUT BEHAVIORAL DISTURBANCE 12/30/2017 LORI HUNTL A F22 12/30/2017 MARILEE, HERB W F33.9 MAJOR DEPRESSIVE DISORDER, RECURRENT, UNSPECIFIED 12/30/2017 LORI HUNTL W F41.1 GENERALIZED ANXIETY DISORDER 12/30/2017 LORI HUNTL W F45.1 12/30/2017 LORI HUNTL W G47.00 INSOMNIA, UNSPECIFIED 12/30/2017 LORI HUNTL W I10 ESSENTIAL (PRIMARY) HYPERTENSION 12/30/2017 HERB HUNT W I25.10 ATHSCL HEART DISEASE OF [place] CORONARY ARTERY W/O ANG PCTRS 12/30/2017 HERB HUNT W K58.1 IRRITABLE BOWEL SYNDROME WITH CONSTIPATION Procedures Code [place] [id number] ROUTINE VENIPUNCTURE 11/20/2012 25447 UA LONG DIP 11/20/2012 65145 CMP 11/21/2012 [id number] GFR CALC (RESULT ONLY) 11/21/2012 54247 CBC 11/21/2012 96700 XRAY ABDOMEN, 1 VIEW (KUB) 11/30/2012 35608 ROUTINE VENIPUNCTURE 01/13/2013 24141 LIPID PANEL 01/13/2013 87306 LACERATION REPAIR (SPECIFY LOCATION) 02/03/2013 34909 MAMMOGRAM, SCREENING 04/03/2013 06694 UA W/ CULTURE IF INDICATED 04/03/2013 G0008 FLU ADMINISTRATION ( MEDICARE ONLY) 01/20/2014 73069 ROUTINE VENIPUNCTURE 02/05/2014 88097 CBC 02/05/2014 [id number] GFR CALC (RESULT ONLY) 02/05/2014 98185 CMP 02/05/2014 54052 LIPID PANEL 02/05/2014 24116 TSH 02/05/2014 36032 KUB 02/23/2014 30263 MAMMOGRAM, SCREENING 04/08/2014 31148 OXIMETRY 10/18/2014 46013 ROUTINE VENIPUNCTURE 02/14/2015 90643 CBC 02/14/2015 [id number] GFR CALC (RESULT ONLY) 02/14/2015 61884 CMP 02/14/2015 47723 LIPID PANEL 02/14/2015 [id number] REPOSITION LEFT UPPER FEMUR WITH INTRAME 04/28/2016 Results Test Result Range Comp. Metabolic Panel (14) - 07/31/16 12:39 Glucose, Serum 91 mg/dL 65-99 BUN 18 mg/dL 8-27 Creatinine, Serum 0.80 mg/dL 0.57-1.00 eGFR If NonAfricn Am 72 mL/min/1.73 >59 eGFR If Africn Am 83 mL/min/1.73 >59 BUN/Creatinine Ratio 23 11-26 Sodium, Serum 141 mmol/L 134-144 Potassium, Serum 4.7 mmol/L 3.5-5.2 Chloride, Serum 97 mmol/L 97-108 Carbon Dioxide, Total 22 mmol/L 18-29 Calcium, Serum 9.8 mg/dL 8.7-10.3 Protein, Total, Serum 7.7 g/dL 6.0-8.5 Albumin, Serum 4.9 g/dL 3.5-4.8 Globulin, Total 2.8 g/dL 1.5-4.5 A/G Ratio 1.8 1.1-2.5 Bilirubin, Total 0.4 mg/dL 0.0-1.2 Alkaline Phosphatase, S 99 IU/L 39-117 AST (SGOT) 22 IU/L 0-40 ALT (SGPT) 12 IU/L 0-32 Lipid Panel - 07/31/16 12:39 Cholesterol, Total 252 mg/dL 100-199 Triglycerides 126 mg/dL 0-149 HDL Cholesterol 67 mg/dL >39 VLDL Cholesterol Get 25 mg/dL 5-40 LDL Cholesterol Calc 160 mg/dL 0-99 TSH - 07/31/16 12:39 TSH 1.050 uIU/mL 0.450-4.500 C-Reactive Protein, Quant - 07/31/16 12:39 C-Reactive Protein, Quant 3.0 mg/L 0.0-4.9 Complete blood count (CBC) with automated white blood cell (WBC) differential - 08/10/16 04:00 Blood leukocytes automated count (number/volume) 7.5 10*3/uL 4.3-11.0 Blood erythrocytes automated count (number/volume) 3.87 10*6/uL 4.35-5.85 Venous blood hemoglobin measurement (mass/volume) 12.2 [...] Automated blood platelet mean volume measurement 10.5 [foz_us] 7.4-10.4 Automated blood neutrophils/100 leukocytes 49 % [...] Serum or plasma sodium measurement (moles/volume) 136 mmol/L 135-145 Serum or plasma potassium measurement (moles/volume) 3.3 mmol/L 3.6-5.0 Serum or plasma chloride measurement (moles/volume) 104 mmol/L 98-107 Carbon dioxide 18 mmol/L 21-32 Serum or plasma anion gap determination (moles/volume) 14 mmol/L 5-14 Serum or plasma urea nitrogen measurement (mass/volume) 11 mg/dL 7-18 Serum or plasma creatinine measurement (mass/volume) 0.77 mg/dL 0.60-1.30 Serum or plasma urea nitrogen/creatinine mass [...] or plasma troponin i.cardiac measurement (mass/volume) < ng/ mL <0.30 Serum or plasma amylase measurement (enzymatic activity/volume) - 08/10/16 04: 00 Serum or plasma amylase measurement (enzymatic activity/volume) 67 U /L 25-125 Lipase - 08/10/16 04:00 Lipase 56 U/L 8-78 Complete urinalysis with reflex to culture - 08/10/16 06:05 Urine color determination YELLOW NRG Urine clarity determination CLEAR NRG Urine pH measurement by test strip 8 5-9 Specific gravity of urine by test strip 1.010 1.016- 1.022 Urine protein assay by test strip, semi-quantitative [...] or plasma troponin i.cardiac measurement (mass/volume) < ng/ mL <0.30 Urine Culture, Routine - 09/11/16 12:40 Urine Culture, Routine Note Genital Culture, Routine - 09/25/16 18:28 Genital Culture, Routine Note Pap Lb, rfx HPV ASCU - 09/25/16 18:28 DIAGNOSIS: Comment Specimen adequacy: Comment Clinician provided ICD10: Comment Performed by: Comment . . Note: Comment . Comment Magnesium - 11/02/16 05:10 Mg++ 3.0 mg/dL 1.6-2.6 Complete blood count (CBC) with automated white blood cell (WBC) differential - 03/08/17 16:23 Blood leukocytes automated count (number/volume) 6.6 10*3/uL 4.3-11.0 Blood erythrocytes automated count (number/volume) 4.92 10*6/uL 4.35-5.85 Venous blood hemoglobin measurement (mass/volume) 15.2 [...] Automated blood platelet mean volume measurement 10.9 [foz_us] 7.4-10.4 Automated blood neutrophils/100 leukocytes 66 % [...] Serum or plasma sodium measurement (moles/volume) 141 mmol/L 135-145 Serum or plasma potassium measurement (moles/volume) 4.1 mmol/L 3.6-5.0 Serum or plasma chloride measurement (moles/volume) 104 mmol/L 98-107 Carbon dioxide 20 mmol/L 21-32 Serum or plasma anion gap determination (moles/volume) 17 mmol/L 5-14 Serum or plasma urea nitrogen measurement (mass/volume) 22 mg/dL 7-18 Serum or plasma creatinine measurement (mass/volume) 0.85 mg/dL 0.60-1.30 Serum or plasma urea nitrogen/creatinine mass [...] 16:23 THYROID STIMULATING HORMONE 0.64 u[iU]/mL 0.35-4.94 Vitamin D, 25 OH - 03/09/17 04:48 Vitamin D, 25 OH 17.00 ng/mL 25.00-100.00 VIT B-12 - 03/09/17 04:48 Vitamin B12 1135.00 pg/mL 213.00-816.00 MRSA Screen - 03/09/17 04:48 FINAL CULTURE RESULTS MRSA Negative Nasal Culture MEDIA PLATED Setup at 06:09 on 03/09/2017 Complete urinalysis with reflex to culture - 07/30/17 18:04 Urine color determination YELLOW NRG Urine clarity determination CLEAR NRG Urine pH measurement by test strip 7 5-9 Specific gravity of urine by test strip 1.005 1.016- 1.022 Urine protein assay by test strip, semi-quantitative [...] count by microscopy (number/high power field ) [HPF] NRG Bacteria detection in urine sediment by light microscopy TRACE NRG Squamous epithelial cells detection in urine sediment by light microscopy RARE NRG Crystals detection in urine sediment by light microscopy NONE NRG Casts detection in urine sediment by light microscopy NONE NRG Mucus detection in urine sediment by light microscopy NEGATIVE NRG Complete urinalysis with reflex to culture NO NRG Complete blood count (CBC) with automated white blood cell (WBC) differential - 07/30/17 18:43 Blood leukocytes automated count (number/volume) 7.4 10*3/uL 4.3-11.0 Blood erythrocytes automated count (number/volume) 4.49 10*6/uL 4.35-5.85 Venous blood hemoglobin measurement (mass/volume) 13.8 g/dL 11.5-16.0 Blood hematocrit (volume fraction) 41 % 35-52 Automated erythrocyte mean corpuscular volume 91 [foz_us] 80-99 Automated erythrocyte mean corpuscular hemoglobin (mass per erythrocyte) 31 pg 25-34 Automated erythrocyte mean corpuscular hemoglobin concentration measurement ( mass/volume) 34 g/dL 32-36 Automated erythrocyte distribution width ratio 12.9 % 10.0-14.5 Automated blood platelet count (count/volume) 252 10*3/uL 130-400 Automated blood platelet mean volume measurement 10.4 [foz_us] 7.4-10.4 Automated blood neutrophils/100 leukocytes 60 % 42-75 Automated blood lymphocytes/100 leukocytes 26 % 12-44 Blood monocytes/100 leukocytes 11 % 0-12 Automated blood eosinophils/100 leukocytes 3 % 0-10 Automated blood basophils/100 leukocytes 0 % 0-10 Blood neutrophils automated count (number/volume) 4.4 10*3 1.8-7.8 Blood lymphocytes automated count (number/volume) 2.0 10*3 1.0-4.0 Blood monocytes automated count (number/volume) 0.8 10*3 0.0-1.0 Automated eosinophil count 0.2 10*3/uL 0.0-0.3 Automated blood basophil count (count/volume) 0.0 10*3/uL 0.0-0.1 Comprehensive metabolic panel - 07/30/17 18:43 Serum or plasma sodium measurement (moles/volume) 135 mmol/L 135-145 Serum or plasma potassium measurement (moles/volume) 4.2 mmol/L 3.6-5.0 Serum or plasma chloride measurement (moles/volume) 98 mmol/L 98-107 Carbon dioxide 28 mmol/L 21-32 Serum or plasma anion gap determination (moles/volume) 9 mmol/L 5-14 Serum or plasma urea nitrogen measurement (mass/volume) 13 mg/dL 7-18 Serum or plasma creatinine measurement (mass/volume) 0.77 mg/dL 0.60-1.30 Serum or plasma urea nitrogen/creatinine mass ratio 17 NRG Serum or plasma creatinine measurement with calculation of estimated glomerular filtration rate > NRG Serum or plasma glucose measurement (mass/volume) 98 mg/dL 70-105 Serum or plasma calcium measurement (mass/volume) 9.5 mg/dL 8.5-10.1 Serum or plasma total bilirubin measurement (mass/volume) 0.4 mg/dL 0.1-1.0 Serum or plasma alkaline phosphatase measurement (enzymatic activity/volume) 102 U/L 40-136 Serum or plasma aspartate aminotransferase measurement (enzymatic activity/ volume) 20 U/L 5-34 Serum or plasma alanine aminotransferase measurement (enzymatic activity/volume ) 10 U/L 0-55 Serum or plasma protein measurement (mass/volume) 7.4 g/dL 6.4-8.2 Serum or plasma albumin measurement (mass/volume) 4.3 g/dL 3.2-4.5 Magnesium - 07/30/17 18:43 Magnesium 2.2 mg/dL 1.8-2.4 THYROID STIMULATING HORMONE - 07/30/17 18:43 THYROID STIMULATING HORMONE 1.19 u[iU]/mL 0.35-4.94 MRSA Screen - 12/13/17 09:25 FINAL CULTURE RESULTS MRSA Negative Nasal Culture MEDIA PLATED Setup at 09:55 on 12/13/2017 VIT B-12 - 12/13/17 09:25 Vitamin B12 770.00 pg/mL 213.00-816.00 Rapid Drug Screen,Medical - 12/13/17 10:45 Amphetamine NEGATIVE NEGATIVE Barbiturates NEGATIVE NEGATIVE Benzodiazepines NEGATIVE NEGATIVE Cocaine NEGATIVE NEGATIVE Marijuana NEGATIVE NEGATIVE Methylenedioxymethamphetamine NEGATIVE NEGATIVE Opiates NEGATIVE NEGATIVE Oxycodone NEGATIVE NEGATIVE Phencyclidine NEGATIVE NEGATIVE Propoxyphene NEGATIVE NEGATIVE Tricyclic Antidepressant NEGATIVE NEGATIVE Lipid Panel - 12/14/17 05:00 C/HDL 4.3 3.7-6.7 Cholesterol 178 mg/dL 100-240 HDL 41 mg/dL 30-85 LDL-Calculated 111 mg/dL 0-100 Trig 130 mg/dL 35-160 VLDL 26 mg/dL 0-42 Encounters ACCT No. Visit Date/Time Discharge Status Pt. Type Provider Facility Loc./Unit Complaint [id number] 03/25/2015 15:23:00 03/25/2015 23:59:59 CLS Outpatient KATHYA SANTANA DDS [id number] 03/03/2015 16:04:00 03/03/2015 23:59:59 CLS Outpatient MARIA LUISA TAN DDS [id number] 02/14/2015 11:40:00 02/14/2015 23:59:59 CLS Outpatient WOLF AGUIRRE APRN [id number] 01/03/2015 14:48:00 01/03/2015 23:59:59 CLS Outpatient WOLF AGUIRRE APRN [id number] 11/28/2014 08:23:00 11/28/2014 23:59:59 CLS Outpatient CASSIE DOMINGUEZ, KADY Raymundo [id number] 11/08/2014 00:00:00 11/08/2014 23:59:59 CLS Outpatient WOLF AGUIRRE APRN [id number] 10/18/2014 14:56:00 10/18/2014 23:59:59 CLS Outpatient WOLF AGUIRRE APRN [id number] 10/13/2014 17:48:00 10/13/2014 23:59:59 CLS Outpatient HUSAM ORLANDO APRN [id number] 07/29/2014 00:00:00 07/29/2014 23:59:59 CLS Outpatient TAN DDSMARIA LUISA [id number] 05/17/2014 15:12:00 05/17/2014 23:59:59 CLS Outpatient GAGANDEEP WILCOXMELISSA Hoff Breanne [id number] 04/08/2014 00:00:00 04/08/2014 23:59:59 CLS Outpatient TIMOTHY GAINESNHAFSAWOLF S [id number] 02/23/2014 14:07:00 02/23/2014 23:59:59 CLS Outpatient TIMOTHY GAINESJordyn WOLF S [id number] 02/23/2014 14:07:00 02/23/2014 23:59:59 CLS Outpatient TIMOTHY GAINESNYUA S [id number] 02/05/2014 11:39:00 02/05/2014 23:59:59 CLS Outpatient TIMOTHY GAINESNHAFSAWOLF S [id number] 01/25/2014 14:13:00 01/25/2014 23:59:59 CLS Outpatient TIMOTHY AUDIO VISUAL ENGINEER WOLF S [id number] 01/20/2014 13:07:00 01/20/2014 23:59:59 CLS Outpatient MORAIMA NICOLE DO [id number] 10/07/2013 15:08:00 10/07/2013 23:59:59 CLS Outpatient NORMA DDJUAREZ Hoff [id number] 09/07/2013 09:10:00 09/07/2013 23:59:59 CLS Outpatient NORMA DDJUAREZ Hoff [id number] 02/10/2013 17:22:00 02/10/2013 23:59:59 CLS Outpatient MORAIMA NICOLE DO [id number] 02/03/2013 17:51:00 02/03/2013 23:59:59 CLS Outpatient [id number] 01/13/2013 10:37:00 01/13/2013 23:59:59 CLS Outpatient TIMOTHY AUDIO VISUAL ENGINEERYUA S [id number] 01/03/2013 14:22:00 01/03/2013 23:59:59 CLS Outpatient HUSAM ORLANDO APRN [id number] 11/21/2012 13:05:00 11/21/2012 23:59:59 CLS Outpatient KAELA CALHOUN DDS [id number] 11/11/2012 16:00:00 11/11/2012 23:59:59 CLS Outpatient [id number] 09/24/2012 15:10:00 09/24/2012 23:59:59 CLS Outpatient [id number] 06/23/2013 11:06:00 Document Registration [id number] 04/03/2013 15:23:00 Document Registration [id number] 04/03/2013 15:23:00 Document Registration [id number] 03/31/2013 15:12:00 Document Registration [id number] 09/18/2017 11:13:00 09/18/2017 14:45:00 DIS Outpatient SHANDA SAINI MD Via [facility] ENDO ABDOMINAL PAIN [id number] 09/16/2017 05:57:00 09/16/2017 15:00:00 DIS Outpatient SHANDA SAINI MD [facility] PREOP ABD PAIN [id number] 07/30/2017 17:15:00 07/30/2017 20:55:00 DIS Emergency MEI HILL MD [facility] ER CONSTIPATION [id number] 03/08/2017 15:00:00 03/08/2017 19:15:00 DIS Emergency VAN GILLETTE APRN [facility] ER BOTH HIP PAIN [id number] 08/10/2016 03:53:00 08/10/2016 07:46:00 DIS Emergency MEI HILL MD [facility] ER NAUSEA,ABD PAIN,WEAK PULSE [id number] 05/02/2016 11:11:00 05/12/2016 14:15:00 DIS Inpatient FRANCE NAVARRO MD [facility] IRF HIP FRACTURE [id number] 02/06/2016 09:53:00 02/07/2016 15:43:00 DIS Inpatient FRED DOS SANTOS MD [facility] ICU CHEST PAIN DIARRHEA DEHYDRATION [id number] 09/05/2015 15:56:00 09/05/2015 23:59:59 CLS Outpatient WOLF AGUIRRE [facility] RAD SCREENING [id number] 07/27/2015 15:47:00 08/31/2015 00:01:00 DIS Outpatient JERMAINE JIMENES [facility] CARD BRADYCARDIA [id number] 07/25/2015 21:35:00 07/27/2015 16:04:00 DIS Inpatient FLO COLEMAN MD [facility] ICU CHEST PAIN [id number] 05/18/2015 15:00:00 05/18/2015 23:59:59 CLS Preadmit WOLF AGUIRRE [facility] RAD [id number] 11/06/2014 01:17:00 11/07/2014 15:42:00 DIS Inpatient CASSIE DOMINGUEZ, KADY Raymundo [facility] CSD SYMPTOMATIC BRADYCARDIA,N /V,ABD PAIN,COLITIS [id number] 05/04/2014 11:32:00 05/04/2014 23:59:59 CLS Outpatient WOLF AGUIRRE [facility] RAD SCREENING [id number] 03/01/2014 08:35:00 03/01/2014 11:15:00 DIS Outpatient BOB ARZATE MD [facility] SDC CONSTIPATION [id number] 02/25/2014 07:26:00 02/25/2014 23:59:59 CLS Outpatient BOB ARZATE MD [facility] PREOP CONSTIPATION [id number] 04/09/2013 11:14:00 04/09/2013 23:59:59 CLS Outpatient DEEPTI MATHUR APRN [facility] RAD SCREENING [id number] 04/27/2016 18:50:00 ACT Inpatient KADY MATTHEWS MD Via [facility] 4TH [employer]CH[employer] HIP FX [id number] 12/13/2017 09:11:00 Document Registration [id number] 09/30/2016 07:05:00 Document Registration [id number] 12/13/2017 09:11:00 12/30/2017 09:17:00 DIS Inpatient [facility] MOY [id number] 03/08/2017 23:44:00 03/27/2017 12:08:00 DIS Inpatient [facility] MOY [id number] 10/17/2016 15:00:00 11/05/2016 13:00:00 DIS Inpatient [facility] MOY [id number] 10/19/2016 15:58:44 Document Registration [id number] 01/02/2018 10:00:00 01/02/2018 23:59:59 [facility] Outpatient WOLF AGUIRRE APRN [facility] [id number] 08/01/2016 18:05:00 Document Registration [id number] 09/06/2015 07:36:48 ACT Document Registration [id number] 10/02/2016 05:05:00 Document Registration [id number] 09/13/2016 18:05:00 Document Registration
[2018-08-20 13:15] LABS: BASOPHILS % (AUTO) 0 % (0-10); EOSINOPHILS % (AUTO) 0 % (0-10); HEMATOCRIT 38 % (35-52); HEMOGLOBIN 13.2 G/DL (11.5-16.0); LYMPHOCYTES # (AUTO) 1.8 X 10^3 (1.0-4.0); LYMPHOCYTES % (AUTO) 23 % (12-44); MEAN CORPUSCULAR HEMOGLOBIN 31 PG (25-34); MEAN CORPUSCULAR HGB CONC 35 G/DL (32-36); MEAN CORPUSCULAR VOLUME 89 FL (80-99); MEAN PLATELET VOLUME 10.7 FL (7.4-10.4); MONOCYTES # (AUTO) 0.9 X 10^3 (0.0-1.0); MONOCYTES % (AUTO) 12 % (0-12); NEUTROPHILS # (AUTO) 4.8 X 10^3 (1.8-7.8); NEUTROPHILS % (AUTO) 65 % (42-75); PLATELET COUNT 265 10^3/uL (130-400); RED BLOOD COUNT 4.29 10^6/uL (4.35-5.85); RED CELL DISTRIBUTION WIDTH 14.1 % (10.0-14.5); WHITE BLOOD COUNT 7.5 10^3/uL (4.3-11.0)
[2018-08-20] MEDS ORDERED: NS IV 500 ML 500 ML IV ONE (13:20)
--- NOTE | 2018-08-20 13:30 | ED GI ---
General Chief Complaint: Abdominal/GI Problems Stated Complaint: ABD PAIN Nursing Triage Note: PT TO ROOM #10 VIA ED WC BY ED STAFF FROM [facility]. A&0X4. CO LOWER ABD DISCOMFORT AND BLOATING. SON AT SIDE. PT REPORTS SHE HAS NOT HAD A BM SINCE 08/16/18 AND "NOTHING WILL WORK TO MAKE ME GO." REPORTS ABD BLOATING AND NAUSEA. STATES "NOTHING THERE TASTES GOOD AND I CANT EAT ANYTHING," [facility]. PT REPETITIVELY STATING "PLEASE GIVE ME AN XRAY" AND "I KNOW I HAVE A BOWEL BLOCKAGE IN THERE." ACTIVE BOWEL SOUNDS IN ALL FOUR QUARDANTS HEARD UPON AUSCULTATION. Sepsis Screen: No Definite Risk History of Present Illness Date Seen by Provider: Aug 20, 2018 Time Seen by Provider: 12:40 Initial Comments 78-year-old female presents for abdominal pain and constipation. She reports no bowel movement for approximately 5 days. She denies taking a stool softener, milk of magnesia or MiraLAX. She has had chronic problems with constipation. She was evaluated one year ago with EGD and colonoscopy, the colon showed no evidence of polyps or other abnormal concerns. She reports mild nausea but no vomiting or diarrhea. Her appetite has been minimal. She now resides at [facility]. She was brought here by her son. The staff called report on the patient prior to her arrival, report they tried to make her an appointment with her primary care provider that she was adamant she needed to come to the emergency department. They also report that she has been refusing her stool softener for the last 2-3 days, but she has a documented bowel movement daily, normal, for the last 5 days. Timing/Duration: 4-5 Days Severity/Quality: Moderate Location: Generalized Abdomen Radiation: No Radiation Allergies and Home Medications Allergies Coded Allergies: morphine (Verified Allergy, Unknown, 04/28/16) can take hydrocodone per pt Home Medications Aspirin 81 Mg Tablet.dr, 81 MG PO DAILY, (Reported) Citalopram Hydrobromide 10 Mg Tablet, 10 MG PO DAILY, (Reported) Clonazepam 0.5 Mg Tablet, 0.5 MG PO HS, (Reported) L.acidoph & Paracasei,B.lactis 1 Each Capsule, 1 EACH PO DAILY, (Reported) Naproxen 500 Mg Tablet, 500 MG PO BID, (Reported) Olanzapine 2.5 Mg Tablet, 1.25 MG PO BID, (Reported) Pantoprazole Sodium 40 Mg Tablet.dr, 40 MG PO DAILY Prescribed by: SHANDA SAINI on 09/18/171407 Polyethylene Glycol 3350 17 Gm Powd.pack, 17 GM PO BID, (Reported) Rivastigmine 4.6 Mg Patch, 4.6 MG TD DAILY, (Reported) Sucralfate 1 Gm Tablet, 1 GM PO QID Prescribed by: SHANDA SAINI on 09/18/17 1408 Patient Home Medication List Home Medication List Reviewed: Yes Review of Systems Review of Systems Constitutional: no symptoms reported, see HPI Gastrointestinal: See HPI, Abdominal Pain, Constipated All Other Systems Reviewed Negative Unless Noted: Yes Past Txviysu-Mnnljg-Feqape Hx Past Med/Social Hx: Reviewed Nursing Past Med/Soc Hx Patient Social History Alcohol Use: Denies Use Recreational Drug Use: No Smoking Status: Never a Smoker Recent Foreign Travel: No Contact w/Someone Who Travel: No Recent Infectious Disease Expo: No Recent Hopitalizations: Yes (anemia-unsure of date) Immunizations Up To Date Tetanus Booster (TDap): Unknown Date of Pneumonia Vaccine: April 01, 2009 Date of Influenza Vaccine: Sep 01, 2013 Seasonal Allergies Seasonal Allergies: No Past Medical History Surgeries: Yes (TRIPLE BYPASS-2005, r HIP REPLAEMENT , l hip 2016) Breast, Cardiac, CABG, Joint Replacement, Open Heart Surgery, Orthopedic Respiratory: Yes (WHOOPING COUGH CHILD) Currently Using CPAP: No Cardiac: Yes (CABG) Coronary Artery Disease, High Cholesterol, Hypertension Neurological: No Reproductive Disorders: Yes Female Reproductive Disorders: Denies Sexually Transmitted Disease: No HIV/AIDS: No Bladder Infection, UTI-Chronic Gastrointestinal: Yes Gastroesophageal Reflux Musculoskeletal: Yes ("CRACKED PELVIS", RIGHT HIP REPLACEMENT, LEFT HIP FRACTURE) Arthritis, Fractures Endocrine: No Cancer: No Psychosocial: Yes Anxiety, Depression Integumentary: Yes Pruritis Blood Disorders: No Adverse Reaction/Blood Tranf: No Family Medical History Cardiovascular disease 19 MOTHER Diabetes mellitus G8 BROTHER Hypercholesterolemia 19 FATHER Physical Exam Vital Signs Vital Signs - First Documented 08/20/18 12:38 Temp 99.2 Pulse 80 Resp 16 B/P (MAP) 107/83 (91) Pulse Ox 98 O2 Delivery Room Air Capillary Refill : Less Than 3 Seconds Height/Weight/BMI Height: 5'6.00" Weight: 120lbs. 0.0oz. 54.493596wb; 21.5 BMI Method:Stated General Appearance: WD/WN, no apparent distress, other (the patient continually repeats throughout the exam "I want an x-ray of my abdomen" and son follows with "or a sono") HEENT: PERRL/EOMI, normal ENT inspection, TMs normal, pharynx normal, other ( oral mucosa pink and moist) Neck: non-tender, full range of motion, supple, normal inspection Respiratory: chest non-tender, lungs clear, normal breath sounds Cardiovascular: normal peripheral pulses, regular rate, rhythm Gastrointestinal: normal bowel sounds, soft; No distended, No guarding, No rebound; tenderness (trace generalized) Neurologic/Psychiatric: alert, normal mood/affect Skin: normal color, warm/dry, other (Skin Turgor < 2 sec. ) Progress/Results/Core Measures Results/Orders Lab Results Laboratory Tests Test 08/20/18 13:05 08/20/18 14:05 Range/Units White Blood Count 7.5 4.3-11.0 10^3/uL Red Blood Count 4.29 L 4.35-5.85 10^6/uL Hemoglobin 13.2 11.5-16.0 G/DL Hematocrit 38 35-52 % Mean Corpuscular Volume 89 80-99 FL Mean Corpuscular Hemoglobin 31 25-34 PG Mean Corpuscular Hemoglobin Concent 35 32-36 G/DL Red Cell Distribution Width 14.1 10.0-14.5 % Platelet Count 265 130-400 10^3/uL Mean Platelet Volume 10.7 H 7.4-10.4 FL Neutrophils (%) (Auto) 65 42-75 % Lymphocytes (%) (Auto) 23 12-44 % Monocytes (%) (Auto) 12 0-12 % Eosinophils (%) (Auto) 0 0-10 % Basophils (%) (Auto) 0 0-10 % Neutrophils # (Auto) 4.8 1.8-7.8 X 10^3 Lymphocytes # (Auto) 1.8 1.0-4.0 X 10^3 Monocytes # (Auto) 0.9 0.0-1.0 X 10^3 Eosinophils # (Auto) 0.0 0.0-0.3 10^3/uL Basophils # (Auto) 0.0 0.0-0.1 10^3/uL Sodium Level 134 L 135-145 MMOL/L Potassium Level 4.0 3.6-5.0 MMOL/L Chloride Level 103 98-107 MMOL/L Carbon Dioxide Level 21 21-32 MMOL/L Anion Gap 10 5-14 MMOL/L Blood Urea Nitrogen 11 7-18 MG/DL Creatinine 0.69 0.60-1.30 MG/DL Estimat Glomerular Filtration Rate > 60 BUN/Creatinine Ratio 16 Glucose Level 102 70-105 MG/DL Calcium Level 9.7 8.5-10.1 MG/DL Corrected Calcium 9.3 8.5-10.1 MG/DL Total Bilirubin 0.4 0.1-1.0 MG/DL Aspartate Amino Transf (AST/SGOT) 19 5-34 U/L Alanine Aminotransferase (ALT/SGPT) 8 0-55 U/L Alkaline Phosphatase 77 40-136 U/L Total Protein 7.5 6.4-8.2 GM/DL Albumin 4.5 3.2-4.5 GM/DL Urine Color YELLOW Urine Clarity CLEAR Urine pH 6.5 5-9 Urine Specific Gypsum 1.010 L 1.016-1.022 Urine Protein NEGATIVE NEGATIVE Urine Glucose (UA) NEGATIVE NEGATIVE Urine Ketones NEGATIVE NEGATIVE Urine Nitrite NEGATIVE NEGATIVE Urine Bilirubin NEGATIVE NEGATIVE Urine Urobilinogen NORMAL NORMAL MG/DL Urine Leukocyte Esterase NEGATIVE NEGATIVE Urine RBC (Auto) NEGATIVE NEGATIVE Urine RBC NONE /HPF Urine WBC NONE /HPF Urine Squamous Epithelial Cells RARE /HPF Urine Crystals NONE /LPF Urine Bacteria NEGATIVE /HPF Urine Casts NONE /LPF Urine Mucus NEGATIVE /LPF Urine Culture Indicated NO My Orders Orders - MANUEL BOONE Cbc With Automated Diff (08/20/18 12:49) Comprehensive Metabolic Panel (08/20/18 12:49) Ua Culture If Indicated (08/20/18 12:49) Ondansetron Injection (Zofran Injectio (08/20/18 13:00) Saline Lock/Iv-Start (08/20/18 13:20) Ns Iv 500 Ml (Sodium Chloride 0.9%) (08/20/18 13:20) Medications Given in ED Current Medications Medications Dose Ordered Sig/Mayela Route Start Time Stop Time Status Last Admin Dose Admin Ondansetron HCl 4 mg ONCE ONCE IVP 08/20/18 13:00 08/20/18 13:01 DC 08/20/18 13:30 4 MG Sodium Chloride 500 ml @ 0 mls/hr Q0M ONCE IV 08/20/18 13:20 08/20/18 13:21 DC 08/20/18 13:30 0 MLS/HR Vital Signs/I&O 08/20/18 08/20/18 12:38 15:16 Temp 99.2 99.2 Pulse 80 80 Resp 16 16 B/P (MAP) 107/83 (91) 128/73 (91) Pulse Ox 98 98 O2 Delivery Room Air Room Air Blood Pressure Mean: 91 Progress Progress Note : Time: 12:40 Progress Note Patient seen and evaluated. Recommended CBC, CMP, and UA. Discussed at length with the patient and her son that there are no indications recommending x-rays at this time. Zofran 4 mg IV for Nausea Discussed patient's assessment and lab findings with Dr. Ortega, as well as the patient's incessant request for abdominal x-ray. He agrees that this is not indicated. 1330 NS 500 ml IV. 1400 Pt reports improved nausea and abd pain, but still requesting abd x-ray. Continue to explain the reasons why this is not indicated. 1450 patient had large, formed bowel movement. 1500 discharge instructions and return precautions reviewed with the patient and her son. She continues to request abdominal series x-ray. Pt's Son states "what a blessing she pooped, now we can go eat!" Departure Impression Primary Impression: Pain in the abdomen Qualified Codes: R10.84 - Generalized abdominal pain Additional Impression: Constipation Qualified Codes: K59.00 - Constipation, unspecified Disposition: HOME, SELF-CARE Condition: Improved Departure-Patient Inst. Decision time for Depature: 15:00 Referrals: [facility] (PCP/Family) Primary Care Physician Patient Instructions: Constipation, Adult (DC) Add. Discharge Instructions: Take your stool softener twice daily as prescribed. Increase water in your diet. Activity as tolerated. Follow-up with your primary care provider if symptoms are not improving or worsen. Return to emergency department for acute, urgent health care needs. All discharge instructions reviewed with patient and/or family. Voiced understanding. Copy Copies To 1: MORAIMA NICOLE AMY ARNP Aug 20, 2018 13:30
[2018-08-20 13:32] LABS: ALANINE AMINOTRANSFERASE 8 U/L (0-55); ALBUMIN 4.5 GM/DL (3.2-4.5); ALKALINE PHOSPHATASE 77 U/L (40-136); BILIRUBIN,TOTAL 0.4 MG/DL (0.1-1.0); BUN/CREATININE RATIO 16; CALCIUM 9.7 MG/DL (8.5-10.1); CARBON DIOXIDE 21 MMOL/L (21-32); CHLORIDE 103 MMOL/L (98-107); CREATININE SERUM 0.69 MG/DL (0.60-1.30); GFR ESTIMATED > 60; GLUCOSE 102 MG/DL (70-105); SODIUM 134 MMOL/L (135-145); TOTAL PROTEIN 7.5 GM/DL (6.4-8.2)
[2018-08-20 14:39] LABS: BILIRUBIN,URINE NEGATIVE (NEGATIVE); CLARITY,URINE CLEAR; COLOR,URINE YELLOW; GLUCOSE, URINE (UA) NEGATIVE (NEGATIVE); KETONES,URINE NEGATIVE (NEGATIVE); LEUKOCYTE ESTERASE ,URINE NEGATIVE (NEGATIVE); NITRITE,URINE NEGATIVE (NEGATIVE); PH,URINE 6.5 (5-9); PROTEIN,URINE NEGATIVE (NEGATIVE); UROBILINOGEN,URINE NORMAL (NORMAL)
[2018-08-20 14:59] LABS: BACTERIA,URINE NEGATIVE /HPF; SQUAMOUS EPITHELIAL CELL,UR RARE /HPF
[2018-08-20 15:16] VITALS: BP 128/73
== END 2018-08-20 15:16 | disposition home or self-care (01) ==
LOC: EDUNIT# 12:28 → ER 12:29
DX: I25.10 Atherosclerotic heart disease of native coronary artery without angina pectoris (principal); E78.00 Pure hypercholesterolemia, unspecified; I10 Essential (primary) hypertension; K21.9 Gastro-esophageal reflux disease without esophagitis; F41.9 Anxiety disorder, unspecified; F32.9 Major depressive disorder, single episode, unspecified; Z82.49 Family history of ischemic heart disease and other diseases of the circulatory system; Z87.440 Personal history of urinary (tract) infections; Z88.5 Allergy status to narcotic agent; Z79.82 Long term (current) use of aspirin; Z96.641 Presence of right artificial hip joint; Z95.1 Presence of aortocoronary bypass graft
CPT/HCPCS: 36415; 51701; 80053; 81000; 85025; 96374

== ENCOUNTER 2019-02-09 02:05 | Emergency (ER) | payer MEDICARE, MEDICAID ==
[~2019-02-09] VITALS: Ht 167.6 cm; Wt 54.4 kg
[~2019-02-09 02:05] MED LIST changes: -POLY17PO23 PO; +POLY17PO31 PO
--- NOTE | 2019-02-09 05:04 | NUR ---
[facility] TO FACILITY.
--- NOTE | 2019-02-09 05:09 | ED Respiratory ---
General Chief Complaint: Respiratory Problems Stated Complaint: SOA Source: patient, family Exam Limitations: no limitations History of Present Illness Date Seen by Provider: Feb 09, 2019 Time Seen by Provider: 04:45 Initial Comments Here with report of shortness of air. Apparently [facility] and they were reporting that she had low O2 sats. She arrives here by POV. O2 sats in the upper 90s on room air. They have remained in the upper 90s on room air throughout the ER stay. On my evaluation, patient states that she had shortness of air earlier but has not had it since. She sometimes gets panic attacks and is thinking maybe she had that. Otherwise describes no other concerns. Timing/Duration: this morning Severity: moderate Prior Episodes/Possible Cause: occasional episodes Associated Symptoms: cough; No fever/chills; shortness of breath; No wheezing Allergies and Home Medications Allergies Coded Allergies: morphine (Verified Allergy, Unknown, 04/28/16) can take hydrocodone per pt Home Medications Aspirin 81 Mg Tablet.dr, 81 MG PO DAILY, (Reported) Citalopram Hydrobromide 10 Mg Tablet, 10 MG PO DAILY, (Reported) Clonazepam 0.5 Mg Tablet, 0.5 MG PO HS, (Reported) L.acidoph & Paracasei,B.lactis 1 Each Capsule, 1 EACH PO DAILY, (Reported) Naproxen 500 Mg Tablet, 500 MG PO BID, (Reported) Olanzapine 2.5 Mg Tablet, 1.25 MG PO BID, (Reported) Pantoprazole Sodium 40 Mg Tablet.dr, 40 MG PO DAILY Prescribed by: SHANDA SAINI on 09/18/17 1408 Polyethylene Glycol 3350 17 Gm Powd.pack, 17 GM PO BID, (Reported) Rivastigmine 4.6 Mg Patch, 4.6 MG TD DAILY, (Reported) Sucralfate 1 Gm Tablet, 1 GM PO QID Prescribed by: SHANDA SAINI on 09/18/17 1408 Patient Home Medication List Home Medication List Reviewed: Yes Review of Systems Review of Systems Constitutional: no symptoms reported Respiratory: see HPI, cough, short of breath; No wheezing Cardiovascular: No chest pain, No edema Gastrointestinal: No abdominal pain, No nausea, No vomiting Genitourinary: no symptoms reported Psychiatric/Neurological: Anxiety; Denies Headache Past Crcgdfz-Qqvnut-Pifnjh Hx Past Med/Social Hx: Reviewed Nursing Past Med/Soc Hx Patient Social History Alcohol Use: Denies Use Recreational Drug Use: No Smoking Status: Never a Smoker Recent Foreign Travel: No Contact w/Someone Who Travel: No Recent Hopitalizations: Yes (anemia-unsure of date) Immunizations Up To Date Tetanus Booster (TDap): Unknown Date of Pneumonia Vaccine: April 01, 2009 Date of Influenza Vaccine: Sep 01, 2013 Seasonal Allergies Seasonal Allergies: No Past Medical History Surgeries: Yes (TRIPLE BYPASS-2005, r HIP REPLAEMENT , l hip 2016) Breast, Cardiac, CABG, Joint Replacement, Open Heart Surgery, Orthopedic Respiratory: Yes (WHOOPING COUGH CHILD) Currently Using CPAP: No Cardiac: Yes (CABG) Coronary Artery Disease, High Cholesterol, Hypertension Neurological: No Reproductive Disorders: Yes Female Reproductive Disorders: Denies Sexually Transmitted Disease: No HIV/AIDS: No Bladder Infection, UTI-Chronic Gastrointestinal: Yes Gastroesophageal Reflux Musculoskeletal: Yes ("CRACKED PELVIS", RIGHT HIP REPLACEMENT, LEFT HIP FRACTURE) Arthritis, Fractures Endocrine: No Cancer: No Psychosocial: Yes Anxiety, Depression Integumentary: Yes Pruritis Blood Disorders: No Adverse Reaction/Blood Tranf: No Family Medical History Reviewed Nursing Family Hx Cardiovascular disease 19 MOTHER Diabetes mellitus G8 BROTHER Hypercholesterolemia 19 FATHER Physical Exam Capillary Refill : Height: 5'6.00" Weight: 120lbs. 0.0oz. 54.896200at; 21.5 BMI Method:Stated General Appearance: WD/WN, no apparent distress HEENT: PERRL/EOMI, TMs normal, pharynx normal Neck: full range of motion, supple Respiratory: lungs clear, normal breath sounds Cardiovascular: regular rate, rhythm, no murmur Gastrointestinal: non tender, soft Extremities: non-tender, normal inspection Neurologic/Psychiatric: alert, normal mood/affect Skin: normal color, warm/dry Progress/Results/Core Measures Suspected Sepsis SIRS Temperature: Pulse: Respiratory Rate: Blood Pressure / Mean: Results/Orders Micro Results Microbiology 02/09/19 Influenza Types A,B Antigen (CHAIM) - Final, Complete My Orders Orders - MEI HILL MD Influenza A And B Antigens (02/09/19 03:02) Vital Signs/I&O Capillary Refill : Progress Note : Progress Note Seen and evaluated. No acute findings on exam. Patient has had O2 saturations 96 % or above throughout ED stay for 2-1/2 hours now. Blood pressure normal with normal heart rate. Influenza screen done and is negative. Otherwise no acute findings and no further workup indicated at this point. Patient and family agree. Discharge back to [facility] with return precautions. Patient verbalize understanding instructions and agreement with plan. Departure Impression Primary Impression: Dyspnea Qualified Codes: R06.00 - Dyspnea, unspecified Additional Impression: Anxiety Disposition: HOME, SELF-CARE Condition: Improved Departure-Patient Inst. Decision time for Depature: 05:09 Referrals: [facility] [place] (PCP/Family) Primary Care Physician Patient Instructions: Shortness of Breath (Dyspnea) (DC) Add. Discharge Instructions: All discharge instructions reviewed with patient and/or family. Voiced understanding. Continue home meds as previously prescribed. Follow-up with your doctor this week for recheck and further evaluation. Return for worsening, fever, vomiting, weakness, breathing problems or other concerns as needed. MEI HILL MD Feb 09, 2019 05:09
[2019-02-09 05:15] VITALS: BP 147/80
== END 2019-02-09 05:32 | disposition home or self-care (01) ==
LOC: EDUNIT# 02:05 → ER 02:06
DX: R06.00 Dyspnea, unspecified (principal); F41.9 Anxiety disorder, unspecified; I25.10 Atherosclerotic heart disease of native coronary artery without angina pectoris; E78.00 Pure hypercholesterolemia, unspecified; I10 Essential (primary) hypertension; K21.9 Gastro-esophageal reflux disease without esophagitis; F32.9 Major depressive disorder, single episode, unspecified; Z87.440 Personal history of urinary (tract) infections; Z88.5 Allergy status to narcotic agent; Z82.49 Family history of ischemic heart disease and other diseases of the circulatory system; Z79.82 Long term (current) use of aspirin; Z96.641 Presence of right artificial hip joint; Z98.890 Other specified postprocedural states; Z95.1 Presence of aortocoronary bypass graft
CPT/HCPCS: 87804

== ENCOUNTER 2019-02-11 13:31 | Inpatient (IN) | payer MEDICARE, MEDICAID ==
[~2019-02-11] VITALS: Ht 167.6 cm; Wt 74.8 kg
[2019-02-11] MEDS ORDERED: TETANUS,DIPTH,PERTUSS P/F (BOOSTRIX) 0.5 ML VIAL IM ONE (14:00)
--- NOTE | 2019-02-11 14:00 | ED Fall/Injury ---
General Chief Complaint: Trauma-Non Activation Nursing Triage Note: PT [facility]. PT DROPPED ITEM ON FLOOR WHILE LAYING IN BED. PT ATTEMPTED TO PICK ITEM UP WHILE BEING IN BED. PT FELL OUT OF BED AND HIT LEFT SIDE OF HEAD ON BEDSIDE TABLE. PT DENIES LOC. PT ALERT AND ORIENTED ATT. C-COLLAR PLACED BY EMS. Source: patient Exam Limitations: no limitations History of Present Illness Date Seen by Provider: Feb 11, 2019 Time Seen by Provider: 13:40 Initial Comments This 79-year-old woman presents to the emergency room with injury to the left brow after falling out of bed. She was reaching for an item from her bed when she rolled out and struck her face on the foot of the table. There was no loss of consciousness. She arrives via EMS from [facility] in [place]. She is alert and oriented at this time. She had a recent ER visit a couple of days ago for shortness of breath and hypoxia. She was administered oxygen by nasal cannula and presents on O2 at this time. She additionally complains of some mild lower abdominal tenderness. We do not know when her last tetanus immunization was. She has a small laceration on the lateral aspect of the left brow with swelling or hematoma. It is no longer bleeding. She arrives in c- collar as placed by EMS but she denies any neck pain. Allergies and Home Medications Allergies Coded Allergies: clindamycin (Unverified Allergy, Unknown, 02/11/19) morphine (Verified Allergy, Unknown, 02/11/19) can take hydrocodone per pt Home Medications Aspirin 81 Mg Tablet.dr, 81 MG PO DAILY, (Reported) Citalopram Hydrobromide 10 Mg Tablet, 10 MG PO DAILY, (Reported) Clonazepam 0.5 Mg Tablet, 0.5 MG PO HS, (Reported) L.acidoph & Paracasei,B.lactis 1 Each Capsule, 1 EACH PO DAILY, (Reported) Naproxen 500 Mg Tablet, 500 MG PO BID, (Reported) Olanzapine 2.5 Mg Tablet, 1.25 MG PO BID, (Reported) Pantoprazole Sodium 40 Mg Tablet.dr, 40 MG PO DAILY Prescribed by: SHANDA SAINI on 09/18/17 1408 Polyethylene Glycol 3350 17 Gm Powd.pack, 17 GM PO BID, (Reported) Rivastigmine 4.6 Mg Patch, 4.6 MG TD DAILY, (Reported) Sucralfate 1 Gm Tablet, 1 GM PO QID Prescribed by: SHANDA SAINI on 09/18/17 8718 Patient Home Medication List Home Medication List Reviewed: Yes Review of Systems Review of Systems Constitutional: no symptoms reported Eyes: No Symptoms Reported Ears, Nose, Mouth, Throat: no symptoms reported Respiratory: see HPI Cardiovascular: no symptoms reported Gastrointestinal: no symptoms reported Genitourinary: no symptoms reported Musculoskeletal: see HPI Skin: see HPI Psychiatric/Neurological: No Symptoms Reported Past Yypicyn-Bjudcf-Tlzguu Hx Past Med/Social Hx: Reviewed and Corrections made Patient Social History Alcohol Use: Denies Use Recreational Drug Use: No Smoking Status: Never a Smoker Recent Foreign Travel: No Contact w/Someone Who Travel: No Recent Infectious Disease Expo: No Recent Hopitalizations: Yes (anemia-unsure of date) Immunizations Up To Date Tetanus Booster (TDap): Unknown Date of Pneumonia Vaccine: April 01, 2009 Date of Influenza Vaccine: Sep 01, 2013 Seasonal Allergies Seasonal Allergies: No Past Medical History Surgeries: Yes (TRIPLE BYPASS-2005, r HIP REPLAEMENT , l hip 2016) Breast, Cardiac, CABG, Joint Replacement, Open Heart Surgery, Orthopedic Respiratory: Yes (WHOOPING COUGH CHILD) Currently Using CPAP: No Cardiac: Yes (CABG) Coronary Artery Disease, High Cholesterol, Hypertension Neurological: Yes Dementia Reproductive Disorders: Yes Female Reproductive Disorders: Denies Sexually Transmitted Disease: No HIV/AIDS: No Bladder Infection, UTI-Chronic Gastrointestinal: Yes Gastroesophageal Reflux Musculoskeletal: Yes ("CRACKED PELVIS", RIGHT HIP REPLACEMENT, LEFT HIP FRACTURE) Arthritis, Fractures Endocrine: No Cancer: No Psychosocial: Yes Anxiety, Depression Integumentary: Yes Pruritis Blood Disorders: No Adverse Reaction/Blood Tranf: No Family Medical History Reviewed Nursing Family Hx Cardiovascular disease 19 MOTHER Diabetes mellitus G8 BROTHER Hypercholesterolemia 19 FATHER Physical Exam Vital Signs Vital Signs - First Documented 02/11/19 13:31 Temp 97.3 Pulse 75 Resp 21 B/P (MAP) 122/88 (99) Pulse Ox 98 O2 Delivery Nasal Cannula O2 Flow Rate 3.00 Capillary Refill : Less Than 3 Seconds Height, Weight, BMI Height: 5'6.00" Weight: 130lbs. 0.0oz. 58.538236qi; 21.5 BMI Method:Stated General Appearance: WD/WN, no apparent distress HEENT: normal ENT inspection, pharynx normal Neck: normal inspection, other (in c-collar) Cardiovascular: regular rate, rhythm, no edema, no murmur Respiratory: chest non-tender, lungs clear, normal breath sounds, no respiratory distress, no accessory muscle use Gastrointestinal: normal bowel sounds, soft, tenderness (generalized in the lower abdomen) Extremities: non-tender, normal inspection, no pedal edema, other (no pain with rotation at the hips) Neurologic/Psychiatric: family counselor II-XII nml as tested, no motor/sensory deficits, alert, normal mood/affect, other (alert and oriented to person and place) Skin: normal color, warm/dry, other (bruising and a small laceration at the lateral aspect of the left brow) Spencer Coma Score Best Eye Response: (4) Open Spontaneously Best Verbal Response: (5) Oriented Best Motor Response: (6) Obeys Commands Spencer Total: 15 Progress/Results/Core Measures Results/Orders Lab Results Laboratory Tests Test 02/11/19 14:00 02/11/19 14:07 Range/Units Urine Color YELLOW Urine Clarity SLIGHTLY CLOUDY Urine pH 7 5-9 Urine Specific [place] 1.015 L 1.016-1.022 Urine Protein 1+ H NEGATIVE Urine Glucose (UA) NEGATIVE NEGATIVE Urine Ketones 1+ H NEGATIVE Urine Nitrite NEGATIVE NEGATIVE Urine Bilirubin NEGATIVE NEGATIVE Urine Urobilinogen NORMAL NORMAL MG/DL Urine Leukocyte Esterase NEGATIVE NEGATIVE Urine RBC (Auto) NEGATIVE NEGATIVE Urine RBC RARE /HPF Urine WBC NONE /HPF Urine Squamous Epithelial Cells RARE /HPF Urine Crystals NONE /LPF Urine Bacteria /HPF Urine Casts PRESENT /LPF Urine Hyaline Casts RARE /LPF Urine Mucus SMALL H /LPF Urine Culture Indicated NO White Blood Count 15.7 H 4.3-11.0 10^3/uL Red Blood Count 3.83 L 4.35-5.85 10^6/uL Hemoglobin 11.2 L 11.5-16.0 G/DL Hematocrit 31 L 35-52 % Mean Corpuscular Volume 82 80-99 FL Mean Corpuscular Hemoglobin 29 25-34 PG Mean Corpuscular Hemoglobin Concent 36 32-36 G/DL Red Cell Distribution Width 13.2 10.0-14.5 % Platelet Count 292 130-400 10^3/uL Mean Platelet Volume 10.0 7.4-10.4 FL Neutrophils (%) (Auto) 85 H 42-75 % Lymphocytes (%) (Auto) 5 L 12-44 % Monocytes (%) (Auto) 11 0-12 % Eosinophils (%) (Auto) 0 0-10 % Basophils (%) (Auto) 0 0-10 % Neutrophils # (Auto) 13.3 H 1.8-7.8 X 10^3 Lymphocytes # (Auto) 0.7 L 1.0-4.0 X 10^3 Monocytes # (Auto) 1.7 H 0.0-1.0 X 10^3 Eosinophils # (Auto) 0.0 0.0-0.3 10^3/uL Basophils # (Auto) 0.0 0.0-0.1 10^3/uL Neutrophils % (Manual) 84 % Lymphocytes % (Manual) 8 % Monocytes % (Manual) 6 % Eosinophils % (Manual) 0 % Basophils % (Manual) 0 % Band Neutrophils 2 % Blood Morphology Comment NORMAL Sodium Level 113 *L 135-145 MMOL/L Potassium Level 4.2 3.6-5.0 MMOL/L Chloride Level 82 L 98-107 MMOL/L Carbon Dioxide Level 24 21-32 MMOL/L Anion Gap 7 5-14 MMOL/L Blood Urea Nitrogen 10 7-18 MG/DL Creatinine 0.62 0.60-1.30 MG/DL Estimat Glomerular Filtration Rate > 60 BUN/Creatinine Ratio 16 Glucose Level 120 H 70-105 MG/DL Calcium Level 8.4 L 8.5-10.1 MG/DL Corrected Calcium 8.7 8.5-10.1 MG/DL Total Bilirubin 0.7 0.1-1.0 MG/DL Aspartate Amino Transf (AST/SGOT) 24 5-34 U/L Alanine Aminotransferase (ALT/SGPT) 10 0-55 U/L Alkaline Phosphatase 93 40-136 U/L C-Reactive Protein High Sensitivity 6.00 H 0.00-0.50 MG/DL B-Type Natriuretic Peptide 932.8 H <100.0 PG/ML Total Protein 6.4 6.4-8.2 GM/DL Albumin 3.6 3.2-4.5 GM/DL My Orders Orders - JOAQUIM MCKENZIE MD BNP (02/11/19 13:46) Cbc With Automated Diff (02/11/19 13:46) Comprehensive Metabolic Panel (02/11/19 13:46) Hs C Reactive Protein (02/11/19 13:46) Ua Culture If Indicated (02/11/19 13:46) Saline Lock/Iv-Start (02/11/19 13:46) Ct Head/Cervical Spine Wo (02/11/19 13:46) Dipht,Pertuss(Acell),Tet Adult (Boostrix (02/11/19 14:00) Manual Differential (02/11/19 14:07) Ct Chest/Abdomen/Pelvis W (02/11/19 14:37) Ns Iv 1000 Ml (Sodium Chloride 0.9%) (02/11/19 14:40) Iohexol Injection (Omnipaque 350 Mg/Ml 1 (02/11/19 15:00) Received Contrast (Contrast Received) (02/11/19 15:00) Ns (Ivpb) (Sodium Chloride 0.9% Ivpb Bag (02/11/19 15:00) Piperacillin/Tazobactam (Bulk) (Zosyn In (02/11/19 16:00) Ekg Tracing (02/11/19 16:19) Nothing By Mouth (02/11/19 Dinner) Furosemide Injection (Lasix Injection) (02/11/19 17:00) Medications Given in ED Current Medications Medications Dose Ordered Sig/Mayela Route Start Time Stop Time Status Last Admin Dose Admin Diphtheria/ Tetanus/Acell Pertussis 0.5 ml ONCE ONCE IM 02/11/19 14:00 02/11/19 14:01 DC 02/11/19 15:21 0.5 ML Furosemide 20 mg ONCE ONCE IVP 02/11/19 17:00 02/11/19 17:04 DC 02/11/19 17:40 20 MG Iohexol 100 ml ONCE ONCE IV 02/11/19 15:00 02/11/19 15:01 DC 02/11/19 14:59 100 ML Piperacillin Sod/ Tazobactam Sod 4.5 gm/Sodium Chloride 120 ml @ 240 mls/hr ONCE ONCE IV 02/11/19 16:00 02/11/19 16:29 DC 02/11/19 17:40 240 MLS/HR Sodium Chloride 1,000 ml @ 0 mls/hr Q0M ONCE IV 02/11/19 14:40 02/11/19 14:41 DC 02/11/19 15:22 1,000 MLS/HR Vital Signs/I&O 02/11/19 13:31 Temp 97.3 Pulse 75 Resp 21 B/P (MAP) 122/88 (99) Pulse Ox 98 O2 Delivery Nasal Cannula O2 Flow Rate 3.00 Blood Pressure Mean: 99 Progress Progress Note #1: Time: 14:39 Progress Note Patient was seen and examined. Labs were reviewed. Patient has significant hyponatremia and leukocytosis. With her abdominal pain and recent cough with hypoxia, infection of the chest or abdomen is suspicious. UA was unremarkable. Creatinine is normal so CT of the chest, abdomen and pelvis has been added to the CT of head and C-spine. We will start IV normal saline to treat the hyponatremia. C-collar remains in place until CT scan can be reviewed. Wound was cleaned with chlorhexidine and water. It does not need repaired. Tetanus booster is being administered. Progress Note #2: Time: 17:03 Progress Note No significant injuries were identified on imaging studies. However, pleural effusions with infiltrate were noted on CT of the chest. This combined with the presence of leukocytosis raise concern for pneumonia. Blood cultures and lactic acid were drawn and Zosyn was administered. Case was discussed with Dr. Mcneal who wish to fluid restrict the patient to 800 mL free oral fluid daily and run normal saline at 70 mL per hour. She requested consultation with Dr. Reid and Dr. Henry. Dr. Reid was agreeable to initial treatment with Zosyn for suspected pneumonia. He recommended use of IV Lasix as well. This was discussed with Dr. Henry as well who is in agreement with the Lasix 20 mg IV 1 for initial diuresis therapy. Patient was cleared from a trauma perspective and does not need a trauma consult. Admission is for medical reasons. Progress Note #3: Time: 17:[address] Henry is here to personally assess the patient. Initial ECG Impression Date: Feb 11, 2019 Initial ECG Impression Time: 17:21 Initial ECG Rate: 76 Comment Sinus rhythm with probable PAC. No ST elevation or depression. No significant abnormal intervals. No significant axis deviation. Diagnostic Imaging Diagonstic Imaging: CT Plain Films/CT/US/NM/MRI: chest, abdomen, pelvis Comments CT chest, abdomen and pelvis viewed by me and report reviewed. See report below : NAME: [facility] REC#: [id number] PT STATUS: REG ER : 1940 PHYSICIAN: JOAQUIM MCKENZIE MD ADMIT DATE: 02/11/19/ER Signed Date of Exam:02/11/19 CT CHEST/ABDOMEN/PELVIS W PROCEDURE: CT chest, abdomen and pelvis with contrast. TECHNIQUE: Multiple contiguous axial images were obtained through the chest, abdomen and pelvis after the administration of intravenous contrast. INDICATION: Trauma and left hip pain. FINDINGS: CT CHEST: No mediastinal hematoma or great vessel injury is seen. There is a small right and moderate left pleural effusion noted. No pneumothorax is seen. There is some mild infiltrate or atelectasis in both lung bases. Bony structures are unremarkable. IMPRESSION: Small right and moderate left pleural effusion with associated bibasilar infiltrates or atelectasis. No other significant abnormality is seen. CT ABDOMEN/PELVIS: No focal liver or splenic laceration is identified. Gallbladder is unremarkable. The pancreas is unremarkable. No adrenal hematoma is seen. No definite renal injury or perinephric fluid collection is identified. Aorta is non-aneurysmal. Bowel loops appear to be nonobstructed. There is diverticulosis of the sigmoid colon. There is moderate stool throughout the transverse colon. Small bowel loops are normal caliber. There is no evidence of free fluid or hemoperitoneum. Postop changes to bilateral hips are noted. Hardware produces moderate artifact. No acute fracture is seen. There appears to be a chronic compression fracture deformity involving the L5 vertebral body. IMPRESSION: 1. No evidence of abdominal or pelvic visceral injury. 2. Moderate stool in the transverse colon consistent with constipation. 3. No acute bony abnormality is detected. Dictated by: Dictated on workstation # [id number] Dict: 02/11/19 1514 Trans: 02/11/19 1524 [facility] [id number] Interpreted by: GILBERTO DENNIS MD Electronically signed by: GILBERTO DENNIS MD 02/11/19 1524 Diagonstic Imaging: CT Plain Films/CT/US/NM/MRI: c-spine, head Comments CT head and C-spine viewed by me and report reviewed. See report below: Departure Impression Primary Impression: Pneumonia Qualified Codes: J18.1 - Lobar pneumonia, unspecified organism Additional Impressions: Pleural effusion Hyponatremia Contusion of forehead Qualified Codes: S00.83XA - Contusion of other part of head, initial encounter Fall from bed Qualified Codes: W06.XXXA - Fall from bed, initial encounter Hypoxia Disposition: 09 ADMITTED INPATIENT Condition: Stable Admissions Decision to Admit Reason: Admit from ER (General) Decision to Admit/Date: Feb 11, 2019 Time/Decision to Admit Time: 14:40 Departure-Patient Inst. Referrals: [facility] [place] (PCP/Family) Primary Care Physician JOAQUIM MCKENZIE MD Feb 11, 2019 14:00
[2019-02-11 14:05] LABS: BILIRUBIN,URINE NEGATIVE (NEGATIVE); CLARITY,URINE SLIGHTLY CLOUDY; COLOR,URINE YELLOW; GLUCOSE, URINE (UA) NEGATIVE (NEGATIVE); KETONES,URINE 1+ (NEGATIVE); LEUKOCYTE ESTERASE ,URINE NEGATIVE (NEGATIVE); NITRITE,URINE NEGATIVE (NEGATIVE); PH,URINE 7 (5-9); PROTEIN,URINE 1+ (NEGATIVE); UROBILINOGEN,URINE NORMAL (NORMAL)
--- OUTSIDE RECORDS SUMMARY | 2019-02-11 14:08 | XMS REPORT ---
Author Author WOLF AGUIRRE [facility] Address [address] [place] [address] Care Team Providers Care Metabolic Specialist Name Role Phone WOLF AGUIRRE Unavailable PROBLEMS Type Condition ICD9-CM Code BCA70-WW Code Onset Dates Condition Status SNOMED Code Problem Sundowning F05 Active 790415774 Problem Constipation, unspecified constipation type K59.00 Active 89873975 Problem Reactive depression F32.9 Active 93077659 Problem Vascular dementia with behavior disturbance F01.51 Active 284878452010369 Problem Insomnia, unspecified type G47.00 Active 203955748 Problem Generalized anxiety disorder F41.1 Active 00923053 Problem Other chronic pain G89.29 Active 12641781 Problem Severe episode of recurrent major depressive disorder, without psychotic features F33.2 Active 68671038 Problem Slow transit constipation K59.01 Active 30635484 Problem 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 Active 223884697 Problem Obsessive thinking F42.8 Active 43601548 Problem Failure to thrive in adult R62.7 Active 240185162 Problem Dysthymic disorder F34.1 Active 64644951 Problem Hypertension I10 Active 21855394 Problem Mood disorder F39 Active 21779464 Problem Irritable bowel syndrome with diarrhea K58.0 Active 732394934 Problem Oropharyngeal dysphagia R13.12 Active 46886746 Problem 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 Active 70286752 Problem Other chronic pain G89.29 Active 08958048 Problem Primary insomnia F51.01 Active 6830826 Problem Poor appetite R63.0 Active 99037907 Problem Atherosclerotic heart disease of [place] 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 Active 549291904937686 Problem Iron deficiency anemia secondary to inadequate dietary iron intake D50.8 Active 530564032 Problem Coarse tremors G25.2 Active 88507417 Problem Gastroesophageal reflux disease without esophagitis K21.9 Active 998136231 Problem Essential hypertension I10 Active 26015075 ALLERGIES No Information ENCOUNTERS Encounter Location Date Diagnosis [facility] [address], [place] [address] Nov, [facility] [address], [place] [address] Oct, [facility] [address], [place] [address] 12[address] Oct, [facility] [id number] [place] [address] 95510- 8951 Oct, [facility] [address] [place] [address] 16616- 3183 Oct, [facility] [address] [place] [address] 35923- 4223 Oct, [facility] [address] [id number] Oct, Generalized anxiety disorder F41.1 and Obsessive thinking F42.8 [facility] [address] [place] [address] 79407- 1311 Sep, [facility] [address] [place] [address] 98369- 8360 Sep, [facility] [address], [place] [address] 10[address] Sep, [facility] [id number] [place] [address] 79049- 7756 Sep, [facility] [address] [place] [id number] Sep, Generalized anxiety disorder F41.1 ; Obsessive thinking F42.8 and Mood disorder F39 [facility] [address] [place] [address] 36643- 5948 Sep, [facility] [address] [place] [address] 65030- 4783 Sep, [facility] [address] [place] [id number] Sep, [facility] [address], [place] [address]327 Sep, [facility] [address] [place] [address] 65999- 8693 Sep, [facility] [place] [address] [place] [id number] Sep, Obsessive thinking F42.8 [facility] [id number] [place] [address] 26327- 3248 Sep, [facility] [address] [place] [address] 78753- 5851 Sep, [facility] [id number] [place] [address] 68680- 2597 Aug, [facility] [id number] [place] [address] 40993- 8141 Aug, [facility] [id number] [place] [address] 85005- 3501 Aug, Positive urine drug screen R82.[address] [id number] Aug, [facility] [address] [place] [address] 27013- 2718 Aug, [facility] [address] [place] [address] 27573- 9637 Aug, [facility] [address] [place] [address] 08071- 7960 Aug, Irritable bowel syndrome with diarrhea K58.0 [facility] [id number] [place] [address] 84059- 5554 Aug, [facility] [id number] [place] [address] 10788- 7375 Aug, Obsessive thinking F42.8 ; Insomnia, unspecified type G47.00 and Other chronic pain G89.29 [facility] [address] [place] [id number] Aug, Obsessive thinking F42.8 ; Irritable bowel syndrome with diarrhea K58.0 ; Pain in right foot M79.671 ; Pain of left foot M79.672 and Gastroesophageal reflux disease without esophagitis K21.9 [facility] [address] [place] [address] 96150- 7224 Aug, [facility] [id number] [place] [address] 31882- 4742 Jul, [facility] [id number] [place] [address] 39238- 1874 Jun, [facility] [id number] [place] [address] 37051- 6841 Jun, [facility] [address] [place] [id number] Jun, Left lower quadrant pain R10.32 and Left leg pain M79.605 [facility] [id number] [place] [address] 27469- 0926 Jun, [facility] [address] [place] [id number] Jun, Pain in left hip M25.552 ; Pain in right hip M25.551 and Primary insomnia F51.01 [facility] [address] [place] [address] 10377- 4893 Jun, [facility] [address] [place] [id number] May, [facility] [id number] [place] [address] 63021- 6619 May, [facility] [id number] [place] [address] 78075- 1759 May, [facility] [address] [place] [id number] May, Mood disorder F39 [facility] [id number] [place] [address] 88335- 5505 May, [facility] [address], [place] [address] 2259 April, [facility] [address] [place] [id number] April, Generalized anxiety disorder F41.1 ; Obsessive thinking F42.8 and Insomnia , unspecified type G47.00 [facility] [id number] [place] [address] 78348- 7370 April, [facility] [id number] [place] [address] 40198- 3269 April, Rash of face R21 [place] [address] 84473- 0231 Mar, [facility] [id number] [place] [address] 00885- 0111 Mar, [facility] [id number] [place] [address] 40451- 2750 Mar, [facility] [id number] [place] [address] 34677- 0329 Jan, [facility] [id number] [place] [address] 43245- 3535 Jan, [facility] [address] [place] [id number] Jan, Constipation, unspecified constipation type K59.00 and Other chronic pain G89.29 [facility] [id number] [place] [address] 80483- 5850 Jan, [facility] [address] [place] [id number] Jan, Obsessive thinking F42.8 and Coarse tremors G25.2 [facility] [id number] [place] [address] [id number] Jan, [facility] [id number] [place] [address] [id number] Jan, [facility] [address] [id number] Jan, Generalized anxiety disorder F41.1 ; Obsessive thinking F42.8 ; Callus of foot L84 and 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 [facility] [id number] [place] [address] 69181- 6434 Dec, Generalized anxiety disorder F41.1 and Severe episode of recurrent major depressive disorder, without psychotic features F33.2 [facility] [id number] [place] [address] 28573- 1764 Nov, [facility] [address] 36853- 9180 Nov, [facility] [address] [id number] Nov, Oropharyngeal dysphagia R13.12 ; Generalized anxiety disorder F41.1 and 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 [facility] [address] 07227- 7024 Nov, [facility] [id number] [place] [address] [id number] Nov, [facility] [id number] [place] [address] 74462- 6109 Nov, [facility] [id number] [place] [address] 92826- 5616 Nov, [facility] [id number] [place] [address] 02951- 8423 Oct, Constipation, unspecified constipation type K59.00 and Mood disorder F39 [facility] [id number] [place] [address] 28441- 6130 Oct, [facility] [id number] [place] [address] [id number] Sep, [facility] [id number] [place] [address] [id number] Sep, [facility] [address] [id number] Sep, [facility] [id number] [address] Sep, [facility] [address] [id number] Sep, Generalized abdominal pain R10.84 [facility] [address], [place] [address]- 1736 Sep, [facility] [id number] [id number] Sep, Generalized anxiety disorder F41.1 and Primary insomnia F51.01 [facility] [id number] [id number] Aug, [facility] [id number] [id number] Aug, Generalized anxiety disorder F41.1 [facility] [address], [place] [address]- 1316 Jul, [facility] [address] [place] [id number] Jul, Obsessive thinking F42.8 [facility] [address] [address] 6040 Jul, Generalized anxiety disorder F41.1 and Irritable bowel syndrome with diarrhea K58.0 [facility] [id number] [id number] Jul, Generalized anxiety disorder F41.1 [facility] [id number] [id number] Jun, Generalized anxiety disorder F41.1 [facility] [id number] [address]- 8482 May, [facility] [address] [id number] May, Generalized anxiety disorder F41.1 ; Irritable bowel syndrome with diarrhea K58.0 and Coarse tremors G25.2 [facility] [address], [place] [address]- 9041 April, [facility] [id number] [place] [address] 86335- 0780 April, [facility] [id number] [place] [address] 84500- 5946 April, [facility] [id number] [place] [address] 99579- 8073 Mar, [facility] [address] [place] [id number] Mar, Severe episode of recurrent major depressive disorder, without psychotic features F33.2 and Pain in left hip M25.552 [facility] [id number] [place] [address] 46940- 3693 Mar, [place] [id number] [place] [address] 41964- 7347 Mar, [facility] [id number] [place] [address] 60300- 8904 Mar, [facility] [id number] [place] [address] 22051- 0170 Mar, Pain in right hip M25.551 and Self-care deficit in patient living alone R46.89 [facility] [address], [place] [address] Jan, Other chronic pain G89.29 ; Pain in left hip M25.552 and Slow transit constipation K59.01 [facility] [address] [place] [address] 85670- 7941 Jan, [facility] [id number] [place] [address] 64822- 9435 Dec, Other depression F32.89 ; Constipation, unspecified constipation type K59.00 and Insomnia, unspecified type G47.00 [place] [id number] [place] [address] 88251- 9914 Nov, Reactive depression F32.9 ; Chronic idiopathic constipation K59.04 ; Generalized anxiety disorder F41.1 ; Coarse tremors G25.2 ; Gastroesophageal reflux disease without esophagitis K21.9 ; Dysthymic disorder F34.1 ; Vitamin deficiency, unspecified E56.9 and Primary insomnia F51.01 [place] [id number] [place] [address] 69632- 9036 Nov, [facility] [address] 96125- 2115 Nov, [facility] [id number] [place] [address] 45327- 5216 Nov, [address] 17047- 6952 Nov, Reactive depression F32.9 ; Essential hypertension I10 ; Generalized anxiety disorder F41.1 ; Atherosclerotic heart disease of [place] 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 ; Pain in right hip M25.551 ; Other chronic pain G89.29 ; Chronic idiopathic constipation K59.04 ; Primary insomnia F51.01 ; Coarse tremors G25.2 ; Gastroesophageal reflux disease without esophagitis K21.9 ; Iron deficiency anemia secondary to inadequate dietary iron intake D50.8 and Vitamin deficiency, unspecified E56.9 [facility] [id number] [place] [address] 59517- 8436 Oct, [facility] [id number] [place] [address] 33640- 4280 Oct, [place] [place] [id number] [place] [address] 66443- 6571 Oct, [place] [id number] [place] [address] 18233- 9371 Oct, Generalized anxiety disorder F41.1 ; Poor appetite R63.0 ; Dehydration E86.0 and Failure to thrive in adult R62.7 [place] [id number] [place] [address] 13920- 6076 Oct, Generalized anxiety disorder F41.1 and Failure to thrive in adult R62.7 [facility] [address] [place] [address] 22218- 1972 Oct, [facility] [id number] [place] [address] 41270- 5180 Oct, [facility] [id number] [place] [address] 04998 -9969 Sep, Vaginal discharge N89.8 and Acute cystitis with hematuria N30.01 [facility] [id number] [place] [address] 50563- 3521 Sep, [facility] [id number] [place] [address] 99913- 1908 Sep, [facility] [id number] [place] [address] 45153- 3889 Sep, Dysthymic disorder F34.1 ; Acute vaginitis N76.0 ; Dysuria R30.0 and Vaginal yeast infection B37.3 [facility] [id number] [place] [address] 82183- 2194 Aug, [facility] [id number] [place] [address] 33697- 2793 Aug, [facility] [address] [place] [address] 01966 -8329 Aug, Foul smelling urine R82.90 ; Rapid heart rate R00.0 and Flatulence R14.3 [facility] [address] [place] [address] 93799- 4193 Aug, [facility] [id number] [place] [address] 93118- 6482 Jul, Constipation, unspecified constipation type K59.00 ; Weak R53.1 ; Poor appetite R63.0 ; Coronary artery disease involving [place] heart without angina pectoris, unspecified vessel or lesion type I25.10 ; Fatigue, unspecified type R53.83 ; Urinary incontinence, unspecified type R32 and Insomnia, unspecified type G47.00 [facility] [id number] [place] [address] 28951- 7059 Jul, [facility] [id number] [place] [address] 18212- 5003 Jun, Dysuria R30.0 [facility] [address] 46145- 0873 Jun, [facility] [address] 85499- 4331 Jun, Urinary tract infection, site not specified N39.0 ; Acute vaginitis N76.0 and Diarrhea, unspecified type R19.7 [facility] [id number] [place] [address] 39141- 9368 May, [facility] [address] 84442- 7004 April, [facility] [address] [id number] April, Encounter for dental examination Z01.20 [facility] [address] 82463- 4952 April, [facility] [id number] [place] [address] 64352- 1732 April, Tremor R25.1 and Episodic tension-type headache, not intractable G44.219 [facility] [id number] [place] [address] 89410- 8016 Mar, [facility] [id number] [place] [address] 48723- 5690 Jan, Mood disorder F39 [facility] [id number] [place] [address] 25982 -2601 Jan, [facility] [id number] [place] [address] 11087- 1907 Jan, [facility] [address], [place] [address]- 8948 Jan, [facility] [address] [place] [address] 83975- 6283 Jan, [facility] [address] [place] [address] 56745- 1424 Jan, [facility] [id number] [place] [address] 29912- 8277 Jan, [facility] [id number] [place] [address] 48322 -3187 Dec, Acute diarrhea R19.7 [facility] [id number] [place] [address] 75768- 1801 Dec, [facility] [id number] [place] [address] 80747- 5688 Dec, [facility] [id number] [place] [address] 98606- 8808 Dec, [facility] [address] [place] [address] 60546 -2422 Dec, N&V (nausea and vomiting) R11.2 [facility] [address] [place] [address] 39077- 8636 Dec, Generalized anxiety disorder F41.1 [facility] [id number] [place] [address] 02347- 1847 Dec, Generalized anxiety disorder F41.1 [facility] [address] [place] [address] 47163- 2972 Nov, Post concussion syndrome F07.81 [facility] [address] [place] [address] 27933- 4655 Nov, Generalized anxiety disorder F41.1 [facility] [address] [address]- 3358 Nov, [facility] [address] [address]- 6965 Nov, Generalized anxiety disorder F41.1 [facility] [id number] [place] [address] [id number] Oct, Dental caries K02.9 [facility] [address] [place] [address] 16310- 0982 Oct, [facility] [id number] [place] [address] [id number] Oct, Dental examination Z01.20 [facility] [id number] [place] [address] [id number] 10 Oct, 2015 Encounter for dental examination Z01.20 [facility] [id number] [place] [address] [phone] Oct, CAD (coronary artery disease) I25.10 [facility] [id number] [place] [address] [phone] Sep, Generalized anxiety disorder F41.1 [facility] [id number] [place] [address] [phone] Sep, [facility] [id number] [place] [address] [phone] Sep, Rash and other nonspecific skin eruption R21 and Yeast vaginitis B37.3 [facility] [id number] [place] [address] [phone] Sep, Generalized anxiety disorder F41.1 [facility] [id number] [place] [address] [phone] Aug, Insect bites 919.4 and Hemorrhoids 455.6 [facility] [id number] [place] [address] [phone]- [phone] Aug, Generalized anxiety disorder 300.02 [facility] [id number] [place] [address] [phone] 08 Aug, 2015 [facility] [id number] [place] [address] [phone] Aug, [facility] [id number] [place] [address] [phone] Aug, Generalized anxiety disorder 300.02 ; No condition on [place] II V71.09 ; Heart problem 429.9 and Hypertension 401.9 [facility] [id number] [address] [address] 28711- 4314 Aug, [facility] [id number] [place] [address] 53476- 9318 Jul, [facility] [id number] [place] [address] 91449- 8116 Jul, [facility] [id number] [place] [address] 99142- 9343 Jul, [facility] [id number] [place] [address] 93522- 4293 Jul, [facility] [id number] [place] [address] 88198- 7016 Jul, Rash 782.1 [facility] [id number] [place] [address] 67764- 8096 Jul, UTI (urinary tract infection) 599.0 [facility] [id number], [place] [address] 4790 Jul, [facility] [id number] [place] [address] 91770- 5200 Jun, Dysthymia 300.4 and Anxiety 300.00 [facility] [id number] [place] [address] 15386- 3015 Jun, 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 [facility] [id number] [place] [address] 73355- 9673 May, [facility] [id number] [place] [address] 15989- 5609 May, [facility] [address] [id number], [place] [address] 2546 May, Unspecified breast screening V76.10 [facility] [address] [id number] [id number] May, Dental examination V72.2 [facility] [address] [id number] [place] [address] 2546 April, [facility] [address] [id number], [place] [address]- 2546 April, [facility] [address] [id number] [id number] April, Dental examination V72.2 [facility] [address] [id number][place] [id number] April, Dental examination V72.2 [facility] [address] [id number], [place] [address]- 7746 Mar, [facility] [address] [id number], [place] [address]- 0306 Mar, [facility] [address] [id number], [place] [address]- 8116 Jan, [facility] [address] [id number], [place] [address]- 3466 Jan, [facility] [address] [id number], [place] [address]- 9226 18 Jan, 2015 [facility] [address] [id number], [place] [address]- 7986 18 Jan, 2015 [facility] [address] [id number], [place] [address]- 7612 16 Jan, 2015 [facility] [address] [id number], [place] [address]- 0436 16 Jan, 2015 [facility] [address] [id number], [place] [address]- 2946 13 Jan, 2015 [facility] [place] [facility] [address] [id number] [place] [address]- 4093 13 Jan, 2014 [facility] [place] [facility] [address] [id number] [place] [address]- 2565 Jan, 2014 [facility] [place] [facility] [address] [id number] [place] [address]- 8838 Jan, 2014 [facility] [place] [facility] [address] [id number] [place] [address]- 1748 Jan, 2014 [facility] [place] [facility] [address] [id number] [place] [address]- 2276 Jan, 2014 [facility] [place] [facility] [address] [id number] [place] [address]- 1921 Jan, 2014 [facility] [place] [facility] [address] [id number] [place] [address]- 3840 Jan, 2014 [facility] [place] [facility] [address] [id number] [place] [address]- 3505 Jan, 2014 [facility] [place] [facility] [address] [id number] [place] [address]- 6993 Jan, 2014 [facility] [place] [facility] [address] [id number] [place] [address]- 0248 Jan, 2014 [facility] [place] [facility] [address] [facility] [id number] [place] [address]- 9195 Jan, 2014 [facility] [place] [facility] [address] [id number] [place] [address]- 5779 Jan, 2014 [facility] [place] [facility] [address] [id number] [place] [address]- 1648 Jan, 2014 [facility] [place] [facility] [address] [id number] [place] [address]- 9717 Jan, 2014 [facility] [place] [facility] [address] [id number] [place] [address]- 6374 Jan, 2014 [facility] [place] [facility] [address] [facility] [id number] [place] [address]- 7917 Dec, [facility] [place] [facility] [address] [id number] [place] [address]- 6687 Dec, [facility] [place] [facility] [address] [id number] [place] [address]- 0294 Dec, [facility] [place] [facility] [address] [id number] [place] [address]- 1238 Dec, [facility] [place] [facility] [address] [id number] [place] [address]- 6585 Nov, [facility] [place] [facility] [address] [id number] [place] [address]- 6436 Nov, [facility] [place] [facility] [address] [id number] [place] [address]- 6578 Nov, [facility] [place] [facility] [address] [id number] [place] [address]- 1574 Nov, [facility] [place] [facility] [address] [id number] [place] [address]- 9391 Nov, [facility] [place] [facility] [address] [id number] [place] [address]- 7799 Nov, [facility] [place] [facility] [address] [id number] [place] [address]- 0768 Nov, [facility] [place] [facility] [address] [id number] [place] [address]- 3360 Oct, [facility] [place] [facility] [address] [id number] [place] [address]- 5764 Oct, [facility] [place] [facility] [address] [id number] [place] [address]- 9168 Oct, [facility] [place] [facility] [address] [id number] [place] [address]- 8842 Oct, [facility] [place] [facility] [address] [id number] [place] [address]- 3452 Oct, [facility] [place] [facility] [address] [id number] [place] [address]- 2904 Oct, [facility] [place] [facility] [address] [id number] [place] [address]- 6891 Oct, [facility] [place] [facility] [address] [id number] [place] [address]- 8583 Oct, [facility] [place] [facility] [address] [id number] [place] [address]- 4229 Oct, [facility] [place] [facility] [address] [id number] [place] [address]- 7557 Oct, [facility] [place] [facility] [address] [id number] [place] [address]- 3569 Oct, [facility] [place] [facility] [address] [id number] [place] [address]- 8331 Oct, [facility] [place] [facility] [address] [id number] [place] [address]- 4898 Sep, [facility] [place] [facility] [address] [id number] [place] [address]- 0379 Sep, [facility] [place] [facility] [address] [id number] [place] [address]- 9573 Sep, [facility] [place] [facility] [address] [id number] [place] [address]- 7115 Sep, [facility] [place] [facility] [address] [id number] [place] [address]- 3949 Jul, [facility] [place] [facility] [address] [id number] [place] [address]- 2821 Jul, [facility] [place] [facility] [address] [id number] [place] [address]- 7699 Jul, [facility] [place] [facility] [address] [id number] [place] [address]- 2216 Jul, [facility] [place] [facility] [address] [id number] [place] [address]- 7136 Jun, [facility] [place] [facility] [address] [id number] [place] [address]- 7624 Jun, [facility] [place] [facility] [address] [id number] [place] [address]- 6810 Jun, [facility] [place] [facility] [address] [id number] [place] [address]- 4403 Jun, [facility] [place] [facility] [address] [id number] [place] [address]- 4475 May, [facility] [place] [facility] [address] [id number] [place] 1655 May, [facility] [place] [facility] [address] [id number] [place] [address]- 4698 April, [facility] [place] [facility] [address] [id number] [place] [address]- 9371 April, [facility] [place] [facility] [address] [id number] [place] [address]- 4380 April, [facility] [place] [facility] [address] [id number] [place] [address]- 8173 April, [facility] [place] [facility] [address] [id number] [place] [address]- 6263 April, [facility] [place] [facility] [address] [id number] [place] [address]- 4274 April, [facility] [place] [facility] [address] [id number] [place] [address]- 0067 April, [facility] [place] [facility] [address] [id number] [place] 4472 April, [facility] [place] [facility] [address] [id number] [place] [address]- 5562 April, [facility] [place] [facility] [address] [id number] [place] [address]- 4998 Mar, [facility] [place] [facility] [address] [id number] [place] [address]- 0240 Mar, [facility] [address] [id number] [place] [address]- 7004 Mar, [facility] [place] [facility] [address] [id number] [place] [address]- 9316 Mar, [facility] [address] [id number] [place] [address]- 8852 Jan, [facility] [place] [facility] [address] [id number] [place] [address]- 5291 Jan, [facility] [place] [facility] [address] [id number] [place] [address]- 8604 Jan, [facility] [place] [facility] [address] [id number] [place] [address]- 2788 Jan, [facility] [place] [facility] [address] [id number] [place] [address]- 3472 Jan, [facility] [place] [facility] [address] [id number] [place] [address]- 0633 Jan, [facility] [place] [facility] [address] [id number] [place] [address]- 9172 Jan, [facility] [place] [facility] [address] [id number] [place] [address]- 8712 Jan, [facility] [place] [facility] [address] [id number] [place] [address]- 9647 Jan, [facility] [place] [facility] [address] [id number] [place] [address]- 4491 Jan, [facility] [place] [facility] [address] [id number] [place] [address]- 4832 Jan, [facility] [place] [facility] [address] [id number] [place] [address]- 9246 Jan, [facility] [place] [facility] [address] [id number] [place] [address]- 7672 Dec, [facility] [place] [facility] [address] [id number] [place] [address]- 1467 Dec, [facility] [place] [facility] [address] [id number] [place] [address]- 6127 Dec, [facility] [place] [facility] [address] [id number] [place] [address]- 1058 Dec, [facility] [place] [facility] [address] [id number] [place] [address]- 9333 Nov, [facility] [place] [facility] [address] [id number] [place] [address]- 3753 Nov, [facility] [place] [facility] [address] [id number] [place] [address]- 9063 Nov, [facility] [place] [facility] [address] [id number] [place] [address]- 0768 Nov, [facility] [place] [facility] [address] [id number] [place] [address]- 0147 Oct, [facility] [place] [facility] [address] [id number] [place] [address]- 8648 Oct, [facility] [place] [facility] [address] [id number] [place] [address]- 8804 Sep, [facility] [place] [facility] [address] [id number] [place] [address]- 4132 Sep, [facility] [place] [facility] [address] [id number], [place] [address]- 7076 Jul, [facility] [place] [facility] [address] [id number] [place] [address]- 5773 Jul, [facility] [place] [facility] [address] [id number] [place] [address]- 4132 Jun, [facility] [place] [facility] [address] [id number] [place] [address]- 8865 Jun, [facility] [place] [facility] [address] [id number] [place] [address]- 1595 18 Jun, 2013 [facility] [address] [id number] [place] [address]- 4998 May, [facility] [address] [id number] [place] 2558 May, [facility] [address] [id number] [place] [address]- 5180 May, [facility] [address] [id number] [place] [address]- 1567 May, [facility] [address] [id number] [place] [address]- 3065 May, [facility] [address] [id number] [place] [address]- 1430 April, [facility] [address] [id number] [place] [address]- 9971 April, [facility] [address] [id number] [place] [address]- 0835 April, [facility] [address] [id number] [place] 8439 April, [facility] [address] [id number] [place] [address]- 9729 April, [facility] [address] [id number] [place] [address]- 6278 April, [facility] [address] [id number] [place] [address]- 0396 Mar, [facility] [place] [facility] [address] [id number] [place] [address]- 2144 Mar, [facility] [place] [facility] [address] [id number] [place] [address]- 2004 Jan, [facility] [address] [id number] [place] [address]- 1317 Jan, [facility] [address] [id number] [place] [address]- 1826 Jan, [facility] [address] [id number] [place] [address]- 6896 Jan, [facility] [place] [facility] [address] [id number] [place] [address]- 0496 Jan, 2012 [facility] [place] [facility] [address] [id number] [place] [address]- 6756 Jan, 2012 [facility] [address] [id number] [place] [address]- 2319 Jan, 2012 [facility] [place] [facility] [address] [id number] [place] [address]- 0536 Jan, [facility] [address] [id number] [place] [address]- 4709 Jan, [facility] [address] [id number] [place] [address]- 4817 Jan, [facility] [address] [id number] [place] [address]- 7973 Jan, [facility] [address] [id number] [place] [address]- 5642 Dec, [facility] [place] [facility] [address] [id number] [place] [address]- 2310 Nov, [facility] [place] [facility] [address] [id number] [place] [address] 2549 Nov, [facility] [place] [facility] [address] [id number] [place] [address]- 6266 Nov, [facility] [place] [facility] [address] [id number] [place] [address]- 2540 Nov, [facility] [place] [facility] [address] [id number] [place] [address]- 2029 Nov, [facility] [place] [facility] [address] [id number] [place] [address]- 3475 20 Nov, 2012 [facility] [place] [facility] [address] [id number] [place] [address]- 4911 20 Nov, 2012 [facility] [place] [facility] [address] [facility] [id number] [place] [address]- 2541 19 Nov, 2012 [facility] [place] [facility] [address] [facility] [id number] [place] [address]- 8215 19 Nov, 2012 [facility] [place] [facility] [address] [id number] [place] [address]- 4825 18 Nov, 2012 [facility] [place] [facility] [address] [id number] [place] [address]- 7792 18 Nov, 2012 [facility] [place] [facility] [address] [id number] [place] [address]- 6230 Nov, [facility] [place] [facility] [address] [facility] [id number] [place] [address]- 3091 Nov, [facility] [place] [facility] [address] [id number] [place] [address]- 1743 17 Oct, 2012 [facility] [place] [facility] [address] [facility] [id number] [place] [address]- 5111 Oct, [facility] [place] [facility] [address] [facility] [id number] [place] [address]- 8731 Oct, [facility] [place] [facility] [address] [facility] [id number] [place] [address]- 4814 19 Sep, 2012 [facility] [place] [facility] [address] [id number], [place] [address]- 6159 19 Sep, 2012 [facility] [place] [facility] [address] [id number] [place] [address]- 4633 10 Sep, 2012 [facility] [place] [facility] [address] [facility] [id number] [place] [address]- 0738 10 Sep, 2012 [facility] [place] [facility] [address] [facility] [id number], [place] [address]- 9531 27 Aug, 2012 [facility] [place] [facility] [address] [id number] [place] [address]- 9398 Aug, [facility] [place] [facility] [address] [id number] [place] [address]- 8974 Jul, [facility] [place] [facility] [address] [id number] [place] [address]- 7780 May, [facility] [place] [facility] [address] [id number] [place] [address]- 4069 May, [facility] [place] [facility] [address] [id number] [place] [address]- 7211 May, [facility] [place] [facility] [address] [id number] [place] [address]- 4149 April, [facility] [place] [facility] [address] [id number] [place] [address]- 1060 Mar, [facility] [place] [facility] [address] [id number] [place] [address]- 4161 Mar, [facility] [place] [facility] [address] [id number] [place] [address]- 2187 Mar, [facility] [place] [facility] [address] [id number] [place] [address]- 7918 Jan, [facility] [place] [facility] [address] [id number] [place] [address]- 3341 Jan, [facility] [place] [facility] [address] [id number] [place] [address]- 8757 Jan, [facility] [place] [facility] [address] [id number] [place] [address]- 7350 Dec, [facility] [place] [facility] [address] [id number] [place] [address]- 5032 Dec, [facility] [place] [facility] [address] [id number] [place] [address]- 1793 Dec, [facility] [place] [facility] [address] [id number] [place] [address]- 9465 Dec, [facility] [place] [facility] [address] [id number] [place] 5600 28 Nov, 2011 [facility] [place] [facility] [address] [id number] [place] [address]- 1950 15 Nov, 2011 [facility] [place] [facility] [address] [id number] [place] [address]- 4876 Nov, [facility] [place] [facility] [address] [id number] [place] [address] 03 Oct, 2011 [facility] [place] [facility] [address] [id number] [place] [address] 31 Sep, 2011 [facility] [place] [facility] [address] [id number] [place] [address] 26 Sep, 2011 [facility] [place] [facility] [address] [id number] [place] [address] Sep, [facility] [place] [facility] [address] [id number], [place] [address] 15 Nov, 2010 [facility] [place] [facility] [address] [id number] [place] [address] 23 Oct, 2010 [facility] [place] [facility] [address] [id number] [place] [address] Oct, [facility] [place] [facility] [address] [id number], [place] [address] 18 Oct, 2010 [facility] [place] [facility] [address] [id number], [place] [address] 16 Oct, 2010 [facility] [place] [facility] [address] [id number] [place] [address] 11 Sep, 2010 [facility] [place] [facility] [address] [id number], [place] [address] April, [facility] [place] [facility] [address] [id number] [place] [address] 29 Nov, 2009 [facility] [place] [facility] [address] [id number] [address] Nov, [facility] [id number], [place] [address] Nov, [facility] [id number], [place] [address] Nov, [facility] [id number], [place] [address] Nov, [facility] [id number] [id number] Oct, [facility] [id number] [address] Oct, [facility] [id number], [place] [address] Sep, [facility] [id number] [address] Jan, IMMUNIZATIONS No Known Immunizations SOCIAL HISTORY Never Assessed REASON FOR VISIT shelter refill PLAN OF CARE VITAL SIGNS MEDICATIONS Medication Instructions Dosage Frequency Start Date End Date Duration Status Duloxetine HCl 30 MG Orally Once a day 1 capsule 24h 30 days Active RESULTS No Results [...] History Intertrechanteric hip fx 04/27/16 Hospitalization History [facility] ([facility]patient [facility] times) Hx of 3 inpatient psych treatments in past in [place] oct 2016 [facility]
--- OUTSIDE RECORDS SUMMARY | 2019-02-11 14:09 | XMS REPORT ---
Author Author WOLF AGUIRRE [facility] Address [address] [place] [address] Care Team Providers Care Prepress Technician Name Role Phone WOLF AGUIRRE Unavailable PROBLEMS Type Condition ICD9-CM Code MLD84-LO Code Onset Dates Condition Status SNOMED Code Problem Sundowning F05 Active 444930663 Problem Constipation, unspecified constipation type K59.00 Active 89010647 Problem Reactive depression F32.9 Active 96752260 Problem Vascular dementia with behavior disturbance F01.51 Active 923267330462691 Problem Insomnia, unspecified type G47.00 Active 785992757 Problem Generalized anxiety disorder F41.1 Active 37290365 Problem Other chronic pain G89.29 Active 10947830 Problem Severe episode of recurrent major depressive disorder, without psychotic features F33.2 Active 10785199 Problem Slow transit constipation K59.01 Active 73410895 Problem 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 Active 480166796 Problem Obsessive thinking F42.8 Active 91262975 Problem Failure to thrive in adult R62.7 Active 790306470 Problem Dysthymic disorder F34.1 Active 60534763 Problem Hypertension I10 Active 32988012 Problem Mood disorder F39 Active 29355016 Problem Irritable bowel syndrome with diarrhea K58.0 Active 680301154 Problem Oropharyngeal dysphagia R13.12 Active 69336690 Problem 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 Active 00828305 Problem Other chronic pain G89.29 Active 79679779 Problem Primary insomnia F51.01 Active 0669987 Problem Poor appetite R63.0 Active 59067829 Problem Atherosclerotic heart disease of [place] 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 Active 277019588360980 Problem Iron deficiency anemia secondary to inadequate dietary iron intake D50.8 Active 851903848 Problem Coarse tremors G25.2 Active 54298888 Problem Gastroesophageal reflux disease without esophagitis K21.9 Active 440784740 Problem Essential hypertension I10 Active 19751334 ALLERGIES No Information ENCOUNTERS Encounter Location Date Diagnosis [facility] [address], [place] [address] Oct, [facility] [address] [address] 4813 Oct, [facility] [address], [place] [address] 7240 Oct, [facility] [id number] [place] [address] 57398- 1155 Oct, [facility] [address], [place] [address] 9130 Oct, [facility] [address] [place] [id number] Oct, Generalized anxiety disorder F41.1 and Obsessive thinking F42.8 [facility] [id number] [place] [address] 71992- 9527 Sep, [facility] [address], [place] [address] 7380 Sep, [facility] [id number] [place] [address] 47609- 5040 Sep, [facility] [address], [place] [address] 5372 Sep, [facility] [address] [place] [id number] Sep, Generalized anxiety disorder F41.1 ; Obsessive thinking F42.8 and Mood disorder F39 [facility] [address], [place] [address] 0163 Sep, [facility] [id number] [place] [address] 21971- 5915 Sep, [facility] [address] [place] [id number] Sep, [facility] [address], [place] [address] Sep, [facility] [address], [place] [address] 5892 Sep, [facility] [address] [place] [id number] Sep, Obsessive thinking F42.8 [facility] [address], [place] [address] 3965 Sep, [facility] [address] [place] [address] 82738- 7224 Sep, [facility] [address], [place] [address] 8458 Aug, [facility] [id number] [place] [address] 80228- 0450 Aug, [facility] [address] [place] [address] 69049- 2617 Aug, [facility] [id number] Aug, [facility] [address], [place] [address] 5566 Aug, [facility] [address], [place] [address] 2381 Aug, [facility] [address], [place] [address] 8962 Aug, Irritable bowel syndrome with diarrhea K58.0 [facility] [address], [place] [address]- 2524 Aug, [facility] [address] [place] [address] 21788- 6927 Aug, Obsessive thinking F42.8 ; Insomnia, unspecified type G47.00 and Other chronic pain G89.29 [facility] [address] [place] [id number] Aug, Obsessive thinking F42.8 ; Irritable bowel syndrome with diarrhea K58.0 ; Pain in right foot M79.671 ; Pain of left foot M79.672 and Gastroesophageal reflux disease without esophagitis K21.9 [facility] [address] [place] [address] 60814- 5124 Aug, [facility] [address] [address] 8005 Jul, [facility] [id number] [place] [address] 48262- 7596 Jun, [facility] [id number] [place] [address] 21142- 2111 Jun, [facility] [address] [place] [id number] Jun, Left lower quadrant pain R10.32 and Left leg pain M79.605 [facility] [id number] [place] [address] 35320- 3514 Jun, [facility] [address] [place] [id number] Jun, Pain in left hip M25.552 ; Pain in right hip M25.551 and Primary insomnia F51.01 [facility] [address] [place] [address] 12132- 0259 Jun, [facility] [address] [place] [id number] May, [facility] [address] [place] [address] 66820- 5959 May, [facility] [address] [place] [address] 33186- 2391 May, [facility] [address] [place] [id number] May, Mood disorder F39 [facility] [address], [place] [address] 8560 May, [facility] [id number] [place] [address] 48685- 6900 April, [facility] [address] [place] [id number] April, Generalized anxiety disorder F41.1 ; Obsessive thinking F42.8 and Insomnia , unspecified type G47.00 [facility] [address] [address] 9[address] April, [facility] [address] [place] [address] 12463- 7707 April, Rash of face R21 [facility] [id number] [place] [address] 99917- 5719 Mar, [facility] [id number] [place] [address] 63108- 9388 Mar, [facility] [address], [place] [address]- 8079 Mar, [facility] [id number] [place] [address] 04672- 3995 Jan, [facility] [address], [place] [address]- 5985 Jan, [facility] [address] [place] [id number] Jan, Constipation, unspecified constipation type K59.00 and Other chronic pain G89.29 [facility] [address], [place] [address]- 7727 Jan, [facility] [address] [place] [id number] Jan, Obsessive thinking F42.8 and Coarse tremors G25.2 [facility] [id number] [id number] Jan, [facility] [id number] [place] [id number] Jan, [facility] [address] [place] [id number] Jan, Generalized anxiety disorder F41.1 ; Obsessive thinking F42.8 ; Callus of foot L84 and 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 [facility] [id number] [place] [address] 94483- 2952 Dec, Generalized anxiety disorder F41.1 and Severe episode of recurrent major depressive disorder, without psychotic features F33.2 [facility] [id number] [place] [address] 34984- 4870 Nov, [facility] [address] 80210- 4745 Nov, [facility] [address] [place] [id number] Nov, Oropharyngeal dysphagia R13.12 ; Generalized anxiety disorder F41.1 and 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 [facility] [id number] [place] [address] 04359- 0697 Nov, [facility] [address] [id number] Nov, [facility] [id number] [place] [address] 34904- 4416 Nov, [facility] [id number] [place] [address] 39668- 4666 Nov, [facility] [id number] [place] [address] 33450- 0947 Oct, Constipation, unspecified constipation type K59.00 and Mood disorder F39 [facility] [id number] [place] [address] 04218- 0893 Oct, [facility] [id number] [place] [address] [id number] Sep, [facility] [id number] [place] [address] [id number] Sep, [facility] [id number] [place] [address] [id number] Sep, [facility] [id number] [place] [address] [id number] Sep, [facility] [address] [place] [id number] Sep, Generalized abdominal pain R10.84 [facility] [address], [place] [address] 2546 Sep, [facility] [address] [id number] Sep, Generalized anxiety disorder F41.1 and Primary insomnia F51.01 [facility] [id number] [id number] Aug, [facility] [id number] [place] [address] [id number] Aug, Generalized anxiety disorder F41.1 [facility] [id number], [place] [address]- 7268 Jul, [facility] [address] [place] [id number] Jul, Obsessive thinking F42.8 [facility] [address] [address] 8777 Jul, Generalized anxiety disorder F41.1 and Irritable bowel syndrome with diarrhea K58.0 [facility] [address] [id number] Jul, Generalized anxiety disorder F41.1 [facility] [address] [id number] Jun, Generalized anxiety disorder F41.1 [facility] [id number] [address]32 May, [facility] [address] [place] [id number] May, Generalized anxiety disorder F41.1 ; Irritable bowel syndrome with diarrhea K58.0 and Coarse tremors G25.2 [facility] [address] [address] 4470 April, [facility] [address], [place] [address]- 6264 April, [facility] [address] [place] [address] 50559- 1095 April, [facility] [id number] [place] [address] 53350- 6700 Mar, [facility] [address] [id number] Mar, Severe episode of recurrent major depressive disorder, without psychotic features F33.2 and Pain in left hip M25.552 [facility] [address], [place] [address]- 7064 Mar, [facility] [id number] [place] [address] 21174- 6868 Mar, [facility] [id number] [place] [address] 17003- 0251 Mar, [facility] [id number] [place] [address] 25863- 2847 Mar, Pain in right hip M25.551 and Self-care deficit in patient living alone R46.89 [facility] [address], [place] [address]649 Jan, Other chronic pain G89.29 ; Pain in left hip M25.552 and Slow transit constipation K59.01 [facility] [address], [place] [address]- 7264 Jan, [facility] [address] [place] [address] 45605- 7532 Dec, Other depression F32.89 ; Constipation, unspecified constipation type K59.00 and Insomnia, unspecified type G47.00 [facility] [address], [place] [address]- 9616 Nov, Reactive depression F32.9 ; Chronic idiopathic constipation K59.04 ; Generalized anxiety disorder F41.1 ; Coarse tremors G25.2 ; Gastroesophageal reflux disease without esophagitis K21.9 ; Dysthymic disorder F34.1 ; Vitamin deficiency, unspecified E56.9 and Primary insomnia F51.01 [facility] [id number] [place] [address] 87199- 3113 Nov, [facility] [id number] [place] [address] 56797- 9494 Nov, [facility] [address] 10042- 7446 Nov, [facility] [id number] [place] [address] 73754- 2653 Nov, Reactive depression F32.9 ; Essential hypertension I10 ; Generalized anxiety disorder F41.1 ; Atherosclerotic heart disease of [place] 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 ; Pain in right hip M25.551 ; Other chronic pain G89.29 ; Chronic idiopathic constipation K59.04 ; Primary insomnia F51.01 ; Coarse tremors G25.2 ; Gastroesophageal reflux disease without esophagitis K21.9 ; Iron deficiency anemia secondary to inadequate dietary iron intake D50.8 and Vitamin deficiency, unspecified E56.9 [facility] [id number] [place] [address] 80672- 6807 Oct, [facility] [id number] [place] [address] 69184- 7149 Oct, [facility] [id number] [place] [address] 67767- 5573 18 Oct, 2016 [facility] [id number] [place] [address] 57660- 2184 16 Oct, 2016 Generalized anxiety disorder F41.1 ; Poor appetite R63.0 ; Dehydration E86.0 and Failure to thrive in adult R62.7 [facility] [id number] [place] [address] 87533- 0645 07 Oct, 2016 Generalized anxiety disorder F41.1 and Failure to thrive in adult R62.7 [facility] [id number] [place] [address] 76885- 4413 Oct, [facility] [id number] [place] [address] 39899- 3936 Oct, [facility] [id number] [place] [address] 31964 -6316 Sep, Vaginal discharge N89.8 and Acute cystitis with hematuria N30.01 [place] [address] 61345- 4259 Sep, [place] [facility] [address] 21455- 4396 Sep, [place] [address] 22945- 1006 Sep, Dysthymic disorder F34.1 ; Acute vaginitis N76.0 ; Dysuria R30.0 and Vaginal yeast infection B37.3 [facility] [id number] [place] [address] 60623- 6471 Aug, [facility] [id number] [place] [address] 66206- 5008 Aug, [facility] [id number] [place] [address] 97355 -9058 Aug, Foul smelling urine R82.90 ; Rapid heart rate R00.0 and Flatulence R14.3 [place] [id number] [place] [address] 90111- 9683 Aug, [facility] [id number] [place] [address] 57089- 6366 Jul, Constipation, unspecified constipation type K59.00 ; Weak R53.1 ; Poor appetite R63.0 ; Coronary artery disease involving [place] heart without angina pectoris, unspecified vessel or lesion type I25.10 ; Fatigue, unspecified type R53.83 ; Urinary incontinence, unspecified type R32 and Insomnia, unspecified type G47.00 [facility] [id number] [place] [address] 21644- 0336 Jul, [facility] [id number] [place] [address] 21753- 5278 Jun, Dysuria R30.0 [facility] [id number] [place] [address] 99875- 3488 Jun, [facility] [id number] [place] [address] 00886- 1139 Jun, Urinary tract infection, site not specified N39.0 ; Acute vaginitis N76.0 and Diarrhea, unspecified type R19.7 [facility] [id number] [place] [address] 18390- 8564 May, [facility] [id number] [place] [address] 78850- 3578 April, [facility] [address] [id number] April, Encounter for dental examination Z01.20 [facility] [id number] [place] [address] 14665- 5574 April, [facility] [id number] [place] [address] 96356- 4448 April, Tremor R25.1 and Episodic tension-type headache, not intractable G44.219 [facility] [id number] [place] [address] 02741- 2570 Mar, [facility] [id number] [place] [address] 48482- 0297 Jan, Mood disorder F39 [facility] [id number] [place] [address] 78397 -8821 Jan, [facility] [id number] [place] [address] 31140- 5374 Jan, [facility] [id number] [place] [address] 07562- 3002 Jan, [facility] [address], [place] [address]- 0959 Jan, [facility] [id number] [place] [address] 69954- 7274 Jan, [facility] [address] [place] [address] 75368- 2157 Jan, [facility] [id number] [place] [address] 65983 -0502 Dec, Acute diarrhea R19.7 [facility] [id number] [place] [address] 91730- 7023 Dec, [facility] [id number] [place] [address] 20463- 1863 Dec, [facility] [id number] [place] [address] 06089- 4671 Dec, [facility] [id number] [place] [address] 39269 -0071 Dec, N&V (nausea and vomiting) R11.2 [facility] [id number] [place] [address] 75186- 1453 Dec, Generalized anxiety disorder F41.1 [facility] [id number] [place] [address] 35688- 1021 Dec, Generalized anxiety disorder F41.1 [facility] [id number] [place] [address] 54412- 7783 Nov, Post concussion syndrome F07.81 [facility] [id number] [place] [address] 15977- 7573 Nov, Generalized anxiety disorder F41.1 [facility] [id number] [place] [address] 39791- 8003 Nov, [facility] [address] [place] [address] 47940- 1609 Nov, Generalized anxiety disorder F41.1 [facility] [id number] [id number] 30 Oct, 2015 Dental caries K02.9 [facility] [id number] [place] [address] [phone]- 3776 Oct, [facility] [address] [id number] Oct, Dental examination Z01.20 [facility] [id number] [place] [address] [id number] 10 Oct, 2015 Encounter for dental examination Z01.20 [facility] [id number] [place] [address] 27709- 4633 09 Oct, 2015 CAD (coronary artery disease) I25.10 [facility] [id number] [place] [address] 22157- 2687 Sep, Generalized anxiety disorder F41.1 [facility] [id number] [place] [address] 29619- 0507 Sep, [facility] [id number] [place] [address] 95775- 1466 Sep, Rash and other nonspecific skin eruption R21 and Yeast vaginitis B37.3 [facility] [id number] [place] [address] [phone]- 2068 Sep, Generalized anxiety disorder F41.1 [facility] [id number] [place] [address] [phone]- [phone] Aug, Insect bites 919.4 and Hemorrhoids 455.6 [facility] [id number] [place] [address] [phone]- [phone] Aug, Generalized anxiety disorder 300.02 [facility] [id number] [place] [address] [phone] 08 Aug, 2015 [facility] [id number] [place] [address] [phone]- [phone] Aug, [facility] [address] [id number] [address] Aug, Generalized anxiety disorder 300.02 ; No condition on [place] V71.09 ; Heart problem 429.9 and Hypertension 401.9 [facility] [id number] [address] Aug, [facility] [id number] [place] [address] [id number]- [phone] Jul, [facility] [id number] [place] [address] [phone]- [phone] Jul, [facility] [id number] [place] [address] [phone] Jul, [facility] [id number] [place] [address] [id number]- 2406 Jul, [facility] [id number] [place] [address] [phone]- [phone] Jul, Rash 782.1 [facility] [id number] [place] [address]82- 5487 Jul, UTI (urinary tract infection) 599.0 [facility] [id number] [place] [address]48- 7469 Jul, [facility] [id number] [address] Jun, Dysthymia 300.4 and Anxiety 300.00 [facility] [id number] [address] Jun, 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 [facility] [id number] [place] [address]576- 8915 May, [facility] [id number], [place] [address] 48[address] May, [facility] [id number] [place] [address] 37547- 6782 May, Unspecified breast screening V76.10 [facility] [address] [id number] [id number] May, Dental examination V72.2 [facility] [address] [id number], [place] [address] April, [facility] [address] [id number], [place] [address] April, [facility] [address] [id number] [id number] April, Dental examination V72.2 [facility] [address] [id number] [id number] April, Dental examination V72.2 [facility] [address] [id number], [place] [address] Mar, [facility] [address] [id number] 6715 Mar, [facility] [address] [id number] [address]66 Jan, [facility] [address] [id number], [place] [address]- 5976 25 Jan, 2015 [facility] [address] [id number] [address] 18 Jan, 2015 [facility] [address] [id number] 7466 18 Jan, 2015 [facility] [address] [id number], [place] [address] 5876 16 Jan, 2015 [facility] [address] [id number], [place] [address]- 2925 16 Jan, 2015 [facility] [address] [id number] 3236 13 Jan, 2015 [facility] [address] [id number] 7826 13 Jan, 2015 [facility] [place] [facility] [address] [id number] [place] [address]- 3812 Jan, [facility] [place] [facility] [address] [id number] [place] [address]- 4957 Jan, [facility] [place] [facility] [address] [id number] [place] [address]- 4016 Jan, [facility] [place] [facility] [address] [id number] [place] [address]- 0186 Jan, [facility] [place] [facility] [address] [id number] [place] [address]- 8006 Jan, [facility] [place] [facility] [address] [id number] [place] [address]- 6733 Jan, [facility] [place] [facility] [address] [id number] [place] [address]- 5574 Jan, [facility] [place] [facility] [address] [id number] [place] [address]- 8422 Jan, [facility] [place] [facility] [address] [id number] [place] [address]- 6974 Jan, [facility] [place] [facility] [address] [id number] [place] [address]- 4350 Jan, [facility] [place] [facility] [address] [id number] [place] [address]- 1614 Jan, [facility] [place] [facility] [address] [id number] [place] [address]- 3845 Jan, [facility] [place] [facility] [address] [id number] [place] [address]- 1816 Jan, [facility] [place] [facility] [address] [id number] [place] [address]- 5115 Jan, [facility] [place] [facility] [address] [id number] [place] [address]- 0731 Dec, [facility] [place] [facility] [address] [id number] [place] [address]- 9215 Dec, [facility] [place] [facility] [address] [id number] [place] [address]- 9501 Dec, [facility] [place] [facility] [address] [id number] [place] [address]- 0103 Dec, [facility] [place] [facility] [address] [id number] [place] [address]- 0104 Nov, [facility] [place] [facility] [address] [id number] [place] [address]- 1929 Nov, [facility] [place] [facility] [address] [id number] [place] [address]- 7012 Nov, [facility] [place] [facility] [address] [id number] [place] [address]- 8466 Nov, [facility] [place] [facility] [address] [id number] [place] [address]- 7051 Nov, [facility] [place] [facility] [address] [id number] [place] [address]- 5379 Nov, [facility] [place] [facility] [address] [id number] [place] [address]- 0753 Nov, [facility] [place] [facility] [address] [id number] [place] [address]- 9493 Oct, [facility] [place] [facility] [address] [id number] [place] [address]- 7053 Oct, [facility] [place] [facility] [address] [id number] [place] [address]- 9250 Oct, [facility] [place] [facility] [address] [id number] [place] [address]- 0855 Oct, [facility] [place] [facility] [address] [id number] [place] [address]- 7259 Oct, [facility] [place] [facility] [address] [id number] [place] [address]- 0504 Oct, [facility] [place] [facility] [address] [id number] [place] [address]- 2127 Oct, [facility] [place] [facility] [address] [id number] [place] [address]- 1516 Oct, [facility] [place] [facility] [address] [id number] [place] [address]- 4112 Oct, [facility] [place] [facility] [address] [id number] [place] [address]- 3986 Oct, [facility] [place] [facility] [address] [id number] [place] [address]- 7143 Oct, [facility] [place] [facility] [address] [id number] [place] [address]- 9430 Oct, [facility] [place] [facility] [address] [id number] [place] [address]- 3520 Sep, [facility] [place] [facility] [address] [id number] [place] [address]- 3572 Sep, [facility] [place] [facility] [address] [id number] [place] [address]- 0446 Sep, [facility] [place] [facility] [address] [id number] [place] [address]- 2819 Sep, [facility] [place] [facility] [address] [id number] [place] [address]- 1173 Jul, [facility] [place] [facility] [address] [id number] [place] [address]- 9567 Jul, [facility] [place] [facility] [address] [id number] [place] [address]- 2366 Jul, [facility] [place] [facility] [address] [id number] [place] [address]- 4484 Jul, [facility] [place] [facility] [address] [id number] [place] [address]- 2263 Jun, [facility] [place] [facility] [address] [id number] [place] [address]- 4776 Jun, [facility] [place] [facility] [address] [id number] [place] 7631 Jun, [facility] [place] [facility] [address] [id number] [place] [address]- 3923 Jun, [facility] [place] [facility] [address] [id number] [place] [address]- 2470 May, [facility] [place] [facility] [address] [id number] [place] [address]- 3342 May, [facility] [place] [facility] [address] [id number] [place] [address]- 1912 April, [facility] [place] [facility] [address] [id number] [place] [address]- 8180 April, [facility] [place] [facility] [address] [id number] [place] [address]- 5198 April, [facility] [place] [facility] [address] [id number] [place] [address]- 3244 April, [facility] [place] [facility] [address] [id number] [place] [address]- 2879 April, [facility] [place] [facility] [address] [id number] [place] [address]- 0922 April, [facility] [place] [facility] [address] [id number] [place] [address]- 9901 April, [facility] [place] [facility] [address] [id number] [place] [address]- 6693 April, [facility] [place] [facility] [address] [id number] [place] [address]- 3556 April, [facility] [place] [facility] [address] [id number] [place] [address]- 1928 Mar, [facility] [place] [facility] [address] [id number] [place] [address]- 7634 Mar, [facility] [place] [facility] [address] [id number] [place] [address]- 3510 Mar, [facility] [address] [id number] [place] [address]- 5776 Mar, [facility] [place] [facility] [address] [id number] [place] [address]- 2986 Jan, [facility] [place] [facility] [address] [id number] [place] [address]- 7781 Jan, [facility] [place] [facility] [address] [id number] [place] [address]- 9589 Jan, [facility] [place] [facility] [address] [id number] [place] [address]- 8700 Jan, [facility] [place] [facility] [address] [id number] [place] [address]- 7604 Jan, [facility] [place] [facility] [address] [id number] [place] [address]- 8967 Jan, [facility] [place] [facility] [address] [id number] [place] [address]- 9090 Jan, [facility] [place] [facility] [address] [id number] [place] [address]- 0862 Jan, [facility] [place] [facility] [address] [id number] [place] [address]- 6712 Jan, [facility] [place] [facility] [address] [id number] [place] [address]- 9320 Jan, [facility] [place] [facility] [address] [id number] [place] [address]- 0230 Jan, [facility] [place] [facility] [address] [id number] [place] [address]- 2910 Jan, [facility] [place] [facility] [address] [id number] [place] [address]- 7716 Dec, [facility] [place] [facility] [address] [id number] [place] [address]- 6753 Dec, [facility] [place] [facility] [address] [id number] [place] [address]- 4651 Dec, [facility] [place] [facility] [address] [id number] [place] [address]- 9266 Dec, [facility] [place] [facility] [address] [id number] [place] [address]- 6767 Nov, [facility] [place] [facility] [address] [id number] [place] [address]- 5538 Nov, [facility] [place] [facility] [address] [id number] [place] [address]- 1209 Nov, [facility] [place] [facility] [address] [id number] [place] [address]- 7718 Nov, [facility] [place] [facility] [address] [id number] [place] [address]- 4251 Oct, [facility] [place] [facility] [address] [id number] [place] [address]- 4492 Oct, [facility] [place] [facility] [address] [id number] [place] [address]- 1066 Sep, [facility] [place] [facility] [address] [id number] [place] [address]- 4969 Sep, [facility] [place] [facility] [address] [id number] [place] [address]- 7962 Jul, [facility] [place] [facility] [address] [id number], [place] [address] Jul, [facility] [place] [facility] [address] [id number] [place] [address]- 7706 Jun, [facility] [place] [facility] [address] [id number] [place] [address]- 8862 Jun, [facility] [place] [facility] [address] [id number] [place] [address]- 4607 Jun, [facility] [place] [facility] [address] [id number] [place] [address]- 6234 26 May, 2013 [facility] [address] [id number] [place] [address]- 8952 May, [facility] [address] [id number] [place] [address]- 1573 May, [facility] [address] [id number] [place] [address]- 0408 May, [facility] [address] [id number] [place] [address]- 1745 May, [facility] [address] [id number] [place] [address]- 6599 April, [facility] [address] [id number] [place] [address]- 8374 April, [facility] [address] [id number] [place] [address]- 3582 April, [facility] [address] [id number] [place] [address]- 1582 April, [facility] [address] [id number] [place] [address]- 9502 April, [facility] [address] [id number] [place] [address]- 9491 April, [facility] [address] [id number] [place] [address]- 1857 Mar, [facility] [address] [id number] [place] [address]- 9734 15 Mar, 2013 [facility] [place] [facility] [address] [id number] [place] [address]- 3524 Jan, [facility] [place] [facility] [address] [id number] [place] [address]- 5148 Jan, [facility] [address] [id number] [place] [address]- 1612 Jan, [facility] [address] [id number] [place] [address] 2540 05 Jan, 2013 [facility] [place] [facility] [address] [id number] [place] [address] 2546 Jan, 2012 [facility] [place] [facility] [address] [id number] [place] [address] 2546 Jan, 2012 [facility] [place] [facility] [address] [id number] [place] [address] 2546 Jan, [facility] [place] [facility] [address] [id number] [place] [address]- 0376 Jan, 2012 [facility] [place] [facility] [address] [id number] [place] [address] 2546 Jan, [facility] [place] [facility] [address] [id number] [place] [address]- 5026 Jan, [facility] [place] [facility] [address] [id number] [place] [address]- 1676 Jan, [facility] [place] [facility] [address] [id number] [place] [address]- 3506 Dec, [facility] [place] [facility] [address] [id number] [place] [address]- 2400 Nov, [facility] [place] [facility] [address] [id number] [place] [address] 2546 Nov, [facility] [place] [facility] [address] [id number] [place] [address] 2546 Nov, [facility] [place] [facility] [address] [id number] [place] [address] 2546 Nov, [facility] [place] [facility] [address] [id number] [place] [address] 2546 Nov, [facility] [place] [facility] [address] [id number] [place] [address]- 2543 Nov, [facility] [place] [facility] [address] [id number] [place] [address]- 0567 20 Nov, 2012 [facility] [place] [facility] [address] [id number] [place] [address]- 3654 19 Nov, 2012 [facility] [place] [facility] [address] [id number] [place] [address]- 7866 19 Nov, 2012 [facility] [place] [facility] [address] [facility] [id number] [place] [address]- 0684 18 Nov, 2012 [facility] [place] [facility] [address] [id number] [place] [address]- 4526 18 Nov, 2012 [facility] [place] [facility] [address] [id number] [place] 3949 Nov, [facility] [place] [facility] [address] [id number] [place] [address]- 6539 Nov, [facility] [place] [facility] [address] [facility] [id number] [place] [address]- 7034 17 Oct, 2012 [facility] [place] [facility] [address] [id number] [place] [address]- 7362 Oct, [facility] [place] [facility] [address] [facility] [id number] [place] [address]- 4231 Oct, [facility] [place] [facility] [address] [facility] [id number] [place] [address]- 4157 Sep, [facility] [place] [facility] [address] [facility] [id number] [place] [address]- 1298 19 Sep, 2012 [facility] [place] [facility] [address] [facility] [id number], [place] [address]- 6969 10 Sep, 2012 [facility] [place] [facility] [address] [id number] [place] [address]- 5919 10 Sep, 2012 [facility] [place] [facility] [address] [facility] [id number] [place] 4461 27 Aug, 2012 [facility] [place] [facility] [address] [facility] [id number], [place] [address]- 2779 20 Aug, 2012 [facility] [place] [facility] [address] [id number] [place] [address]- 5085 Jul, [facility] [place] [facility] [address] [id number] [place] [address]- 5272 May, [facility] [place] [facility] [address] [id number] [place] [address]- 7548 May, [facility] [place] [facility] [address] [id number] [place] [address]- 1284 May, [facility] [place] [facility] [address] [id number] [place] [address]- 4327 April, [facility] [place] [facility] [address] [id number] [place] [address]- 1704 Mar, [facility] [place] [facility] [address] [id number] [place] [address]- 2092 Mar, [facility] [place] [facility] [address] [id number] [place] [address]- 2403 Mar, [facility] [place] [facility] [address] [id number] [place] [address]- 1374 Jan, [facility] [place] [facility] [address] [id number] [place] [address]- 2790 Jan, [facility] [place] [facility] [address] [id number] [place] [address]- 8401 Jan, [facility] [place] [facility] [address] [id number] [place] [address]- 3305 Dec, [facility] [place] [facility] [address] [id number] [place] [address]- 2507 Dec, [facility] [place] [facility] [address] [id number] [place] [address]- 4906 Dec, [facility] [place] [facility] [address] [id number] [place] [address]- 5991 Dec, [facility] [place] [facility] [address] [id number] [place] [address]- 4266 28 Nov, 2011 [facility] [place] [facility] [address] [id number] [place] 15 Nov, 2011 [facility] [place] [facility] [address] [id number] [place] [address] 03 Nov, 2011 [facility] [place] [facility] [address] [id number] [place] [address] Oct, [facility] [place] [facility] [address] [id number] [place] [address] 31 Sep, 2011 [facility] [place] [facility] [address] [id number] [place] [address] 26 Sep, 2011 [facility] [place] [facility] [address] [id number] [place] [address] 13 Sep, 2011 [facility] [place] [facility] [address] [id number] [place] [address] 15 Nov, 2010 [facility] [place] [facility] [address] [id number] [place] [address] 23 Oct, 2010 [facility] [place] [facility] [address] [id number] [place] [address] Oct, [facility] [place] [facility] [address] [id number] [place] [address] 18 Oct, 2010 [facility] [place] [facility] [address] [id number], [place] [address] 16 Oct, 2010 [facility] [place] [facility] [address] [id number], [place] [address] Sep, [facility] [place] [facility] [address] [id number] [place] [address] April, [facility] [place] [facility] [address] [id number] [place] [address] 29 Nov, 2009 [facility] [place] [facility] [address] [id number] [place] [address] 24 Nov, 2009 [facility] [place] [facility] [address] [id number] [address] Nov, [facility] [address] [id number], [place] [address] Nov, [facility] [address] [id number], [place] [address] Nov, [facility] [address] [id number] [address] Oct, [facility] [address] [id number] [address] Oct, [facility] [address] [id number] [address] Sep, [facility] [address] [id number] [address] Jan, IMMUNIZATIONS No Known Immunizations SOCIAL HISTORY Never Assessed REASON FOR VISIT [facility] PLAN OF CARE VITAL SIGNS MEDICATIONS Medication Instructions Dosage Frequency Start Date End Date Duration Status Rivastigmine 9.5 MG/24HR Transdermal Once a day 1 patch to skin 24h 30 days Active RESULTS No Results PROCEDURES No Known procedures INSTRUCTIONS MEDICATIONS ADMINISTERED No Known Medications MEDICAL (GENERAL) HISTORY Type Description Date Medical History Hypertension Medical History Heart disease CABG X3 Stress test 07/2015 Medical History Gastric ulcer Medical History Hyperlipidemia Medical History Headache syndrome Medical History Psychiatric disorders-depression/racing thoughts Medical History Depression Medical History At [facility] 04/2016 Started on Eliquis Medical History Anemia 04/2016 postsurgical hip fx Surgical History right hip replacement w/ Dr. Bruce 2011 Surgical History triple bypass surgery 2003 Surgical History S/P left hip IM Nail (Intertrechanteric hip fx) 04/28/16 Hospitalization History surgeries Hospitalization History Hypertension Hospitalization History ER for a concussion 11/24/15 Hospitalization History Intertrechanteric hip fx 04/27/16 Hospitalization History [facility] ([facility]patient [facility] times) Hx of 3 inpatient psych treatments in past in [place] oct 2016 [facility]
--- OUTSIDE RECORDS SUMMARY | 2019-02-11 14:10 | XMS REPORT ---
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 Name Role Phone WOLF AGUIRRE Unavailable PROBLEMS Type Condition ICD9-CM Code PTE90-PC Code Onset Dates Condition Status SNOMED Code Problem Sundowning F05 Active 860973604 Problem Constipation, unspecified constipation type K59.00 Active 70879076 Problem Reactive depression F32.9 Active 69229344 Problem Vascular dementia with behavior disturbance F01.51 Active 020756816254544 Problem Insomnia, unspecified type G47.00 Active 913251547 Problem Generalized anxiety disorder F41.1 Active 98590358 Problem Other chronic pain G89.29 Active 82382593 Problem Severe episode of recurrent major depressive disorder, without psychotic features F33.2 Active 72740992 Problem Slow transit constipation K59.01 Active 09133121 Problem 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 Active 740683432 Problem Obsessive thinking F42.8 Active 86704947 Problem Failure to thrive in adult R62.7 Active 761629671 Problem Dysthymic disorder F34.1 Active 58202153 Problem Hypertension I10 Active 81921439 Problem Mood disorder F39 Active 58070616 Problem Irritable bowel syndrome with diarrhea K58.0 Active 622064335 Problem Oropharyngeal dysphagia R13.12 Active 68993956 Problem 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 Active 03826552 Problem Other chronic pain G89.29 Active 83201823 Problem Primary insomnia F51.01 Active 0393620 Problem Poor appetite R63.0 Active 85392603 Problem Atherosclerotic heart disease of [place] 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 Active 352807209661493 Problem Iron deficiency anemia secondary to inadequate dietary iron intake D50.8 Active 759350657 Problem Coarse tremors G25.2 Active 12394805 Problem Gastroesophageal reflux disease without esophagitis K21.9 Active 225063155 Problem Essential hypertension I10 Active 51427031 ALLERGIES No Information ENCOUNTERS Encounter Location Date Diagnosis [facility] [address], [place] [address] Oct, [facility] [id number] [place] [address] 72528- 7995 Oct, [facility] [address], [place] [address] 5521 Oct, [facility] [id number] [place] [address] 63476- 2790 Oct, [facility] [address] [place] [id number] Oct, Generalized anxiety disorder F41.1 and Obsessive thinking F42.8 [facility] [id number] [place] [address] 37989- 2508 Sep, [facility] [id number] [place] [address] 17160- 9827 Sep, [facility] [id number] [place] [address] 03732- 1023 Sep, [facility] [id number] [place] [address] 46333- 7564 Sep, [facility] [address] [place] [id number] Sep, Generalized anxiety disorder F41.1 ; Obsessive thinking F42.8 and Mood disorder F39 [facility] [id number] [place] [address] 71702- 7528 Sep, [facility] [id number] [place] [address] 10737- 6123 Sep, [facility] [address] [place] [id number] Sep, [facility] [address] [address] 5171 Sep, [facility] [id number] [place] [address] 30785- 1135 Sep, [facility] [address] [place] [id number] Sep, Obsessive thinking F42.8 [facility] [id number] [place] [address] 94712- 1342 Sep, [facility] [id number] [place] [address] 98630- 9068 Sep, [facility] [id number] [place] [address] 14052- 8986 Aug, [facility] [id number] [place] [address] 22670- 9101 Aug, [facility] [id number] [place] [address] 68945- 9576 Aug, Positive urine drug screen R82.[address] [id number] Aug, [facility] [id number] [place] [address] 20623- 6105 Aug, [facility] [id number] [place] [address] 49294- 1095 Aug, [facility] [id number] [place] [address] 16982- 4566 Aug, Irritable bowel syndrome with diarrhea K58.0 [facility] [address] [place] [address] 24541- 9396 Aug, [facility] [id number] [place] [address] 56158- 9783 Aug, Obsessive thinking F42.8 ; Insomnia, unspecified type G47.00 and Other chronic pain G89.29 [facility] [address] [place] [id number] Aug, Obsessive thinking F42.8 ; Irritable bowel syndrome with diarrhea K58.0 ; Pain in right foot M79.671 ; Pain of left foot M79.672 and Gastroesophageal reflux disease without esophagitis K21.9 [facility] [address], [place] [address] 1133 Aug, [facility] [address], [place] [address] 1409 Jul, [facility] [address], [place] [address]- 7591 Jun, [facility] [id number] [place] [address] 61035- 3721 Jun, [facility] [address] [place] [id number] Jun, Left lower quadrant pain R10.32 and Left leg pain M79.605 [facility] [address], [place] [address]- 3568 Jun, [facility] [address] [place] [id number] Jun, Pain in left hip M25.552 ; Pain in right hip M25.551 and Primary insomnia F51.01 [facility] [address], [place] [address] 0704 Jun, [facility] [address] [place] [id number] May, [facility] [address], [place] [address] 4755 May, [facility] [address], [place] [address]- 2363 May, [facility] [address] [place] [id number] May, Mood disorder F39 [facility] [address], [place] [address] 0403 May, [facility] [address], [place] [address] 3486 April, [facility] [address] [place] [id number] April, Generalized anxiety disorder F41.1 ; Obsessive thinking F42.8 and Insomnia , unspecified type G47.00 [place] [id number] [place] [address] 20775- 8162 April, [facility] [id number] [place] [address] 24777- 9539 April, Rash of face R21 [facility] [id number] [place] [address] 16084- 6085 Mar, [facility] [id number] [place] [address] 03410- 0096 Mar, [place] [address] 14381- 9161 Mar, [facility] [id number] [place] [address] 94868- 0610 Jan, [facility] [id number] [place] [address] 36088- 2806 Jan, [facility] [address] [place] [id number] Jan, Constipation, unspecified constipation type K59.00 and Other chronic pain G89.29 [facility] [id number] [place] [address] 26301- 4490 Jan, [facility] [address] [place] [id number] Jan, Obsessive thinking F42.8 and Coarse tremors G25.2 [place] [id number] [place] [address] [id number] Jan, [place] [id number] [place] [address] [id number] Jan, [facility] [address] [place] [id number] Jan, Generalized anxiety disorder F41.1 ; Obsessive thinking F42.8 ; Callus of foot L84 and 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 [facility] [id number] [place] [address] 971567- 0997 Dec, Generalized anxiety disorder F41.1 and Severe episode of recurrent major depressive disorder, without psychotic features F33.2 [facility] [address] [place] [address] 63174- 3151 Nov, [facility] [id number] [place] [address] 582269- 6167 Nov, [facility] [address] [place] [id number] Nov, Oropharyngeal dysphagia R13.12 ; Generalized anxiety disorder F41.1 and 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 [facility] [id number] [place] [address] 67288- 6288 Nov, [facility] [id number] [place] [address] [id number] Nov, [facility] [id number] [place] [address] 01055- 7057 Nov, [facility] [id number] [place] [address] 55388- 0236 Nov, [facility] [id number] [place] [address] 94329- 1877 Oct, Constipation, unspecified constipation type K59.00 and Mood disorder F39 [facility] [id number] [place] [address] 43341- 2732 Oct, [facility] [id number] [place] [address] [id number] Sep, [facility] [id number] [place] [address] [id number] Sep, [facility] [id number] [place] [address] [id number] Sep, [facility] [id number] [place] [address] [id number] Sep, [facility] [address] [place] [id number] Sep, Generalized abdominal pain R10.84 [facility] [id number], [place] [address]- 5602 Sep, [facility] [id number] [id number] Sep, Generalized anxiety disorder F41.1 and Primary insomnia F51.01 [facility] [id number] [id number] Aug, [facility] [id number] [id number] Aug, Generalized anxiety disorder F41.1 [facility] [address], [place] [address]- 9183 Jul, [facility] [address] [id number] Jul, Obsessive thinking F42.8 [facility] [address] [address] 6893 Jul, Generalized anxiety disorder F41.1 and Irritable bowel syndrome with diarrhea K58.0 [facility] [id number] [id number] Jul, Generalized anxiety disorder F41.1 [facility] [id number] [id number] Jun, Generalized anxiety disorder F41.1 [facility] [id number] [address] 9965 May, [facility] [address] [id number] May, Generalized anxiety disorder F41.1 ; Irritable bowel syndrome with diarrhea K58.0 and Coarse tremors G25.2 [facility] [id number], [place] [address]- 4111 April, [facility] [id number] [address] 9014 April, [facility] [address], [place] [address]- 4148 April, [place] [address] [place] [address] 20573- 7008 Mar, [facility] [address] [place] [id number] Mar, Severe episode of recurrent major depressive disorder, without psychotic features F33.2 and Pain in left hip M25.552 [facility] [facility] [id number] [place] [address] 65162- 2096 Mar, [place] [address] [place] [address] 52130- 2881 Mar, [place] [id number] [place] [address] 65767- 7223 Mar, [place] [id number] [place] [address] 00859- 5697 Mar, Pain in right hip M25.551 and Self-care deficit in patient living alone R46.89 [facility] [address], [place] [address] Jan, Other chronic pain G89.29 ; Pain in left hip M25.552 and Slow transit constipation K59.01 [facility] [address] [place] [address] 04686- 5642 Jan, [place] [id number] [place] [address] 23156- 9613 Dec, Other depression F32.89 ; Constipation, unspecified constipation type K59.00 and Insomnia, unspecified type G47.00 [place] [address] [place] [address] 21976- 5464 Nov, Reactive depression F32.9 ; Chronic idiopathic constipation K59.04 ; Generalized anxiety disorder F41.1 ; Coarse tremors G25.2 ; Gastroesophageal reflux disease without esophagitis K21.9 ; Dysthymic disorder F34.1 ; Vitamin deficiency, unspecified E56.9 and Primary insomnia F51.01 [facility] [address] [place] [address] 52492- 8726 Nov, [facility] [id number] [place] [address] 53141- 4500 Nov, [place] [id number] [place] [address] 90529- 4196 Nov, [facility] [id number] [place] [address] 36969- 5632 Nov, Reactive depression F32.9 ; Essential hypertension I10 ; Generalized anxiety disorder F41.1 ; Atherosclerotic heart disease of [place] 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 ; Pain in right hip M25.551 ; Other chronic pain G89.29 ; Chronic idiopathic constipation K59.04 ; Primary insomnia F51.01 ; Coarse tremors G25.2 ; Gastroesophageal reflux disease without esophagitis K21.9 ; Iron deficiency anemia secondary to inadequate dietary iron intake D50.8 and Vitamin deficiency, unspecified E56.9 [facility] [facility] [id number] [place] [address] 28772- 5102 Oct, [facility] [id number] [place] [address] 15805- 1028 Oct, [facility] [id number] [place] [address] 26733- 6625 18 Oct, 2016 [place] [id number] [place] [address] 02213- 0966 16 Oct, 2016 Generalized anxiety disorder F41.1 ; Poor appetite R63.0 ; Dehydration E86.0 and Failure to thrive in adult R62.7 [place] [id number] [place] [address] 97024- 9379 07 Oct, 2016 Generalized anxiety disorder F41.1 and Failure to thrive in adult R62.7 [place] [id number] [place] [address] 13928- 0545 03 Oct, 2016 [place] [id number] [place] [address] 22534- 8340 Oct, [facility] [id number] [place] [address] 21679 -2459 Sep, Vaginal discharge N89.8 and Acute cystitis with hematuria N30.01 [facility] [id number] [place] [address] 05280- 7235 Sep, [facility] [address] 87571- 6552 Sep, [place] [id number] [place] [address] 63599- 8263 Sep, Dysthymic disorder F34.1 ; Acute vaginitis N76.0 ; Dysuria R30.0 and Vaginal yeast infection B37.3 [place] [id number] [place] [address] 75229- 4530 Aug, [facility] [address] 39672- 8871 Aug, [facility] [id number] [place] [address] 94207 -7006 Aug, Foul smelling urine R82.90 ; Rapid heart rate R00.0 and Flatulence R14.3 [place] [id number] [place] [address] 80130- 1918 Aug, [place] [id number] [place] [address] 87482- 9412 Jul, Constipation, unspecified constipation type K59.00 ; Weak R53.1 ; Poor appetite R63.0 ; Coronary artery disease involving [place] heart without angina pectoris, unspecified vessel or lesion type I25.10 ; Fatigue, unspecified type R53.83 ; Urinary incontinence, unspecified type R32 and Insomnia, unspecified type G47.00 [place] [id number] [place] [address] 23398- 7101 Jul, [facility] [id number] [place] [address] 11077- 7493 Jun, Dysuria R30.0 [facility] [id number] [place] [address] 41057- 3030 Jun, [facility] [id number] [place] [address] 35403- 5587 Jun, Urinary tract infection, site not specified N39.0 ; Acute vaginitis N76.0 and Diarrhea, unspecified type R19.7 [facility] [id number] [place] [address] 30592- 8100 May, [facility] [id number] [place] [address] 09988- 2305 April, [facility] [id number] [place] [address] [id number] April, Encounter for dental examination Z01.20 [facility] [id number] [place] [address] 02440- 3199 April, [facility] [id number] [place] [address] 28484- 2897 April, Tremor R25.1 and Episodic tension-type headache, not intractable G44.219 [facility] [id number] [place] [address] 43919- 1456 Mar, [facility] [id number] [place] [address] 74209- 6873 Jan, Mood disorder F39 [facility] [address], [place] [address]2959 Jan, [facility] [id number] [place] [address] 95367- 6615 Jan, [facility] [id number] [place] [address] 50022- 5917 Jan, [facility] [id number] [place] [address] 27583- 4578 Jan, [facility] [id number] [place] [address] 08938- 4235 10 Jan, 2016 [facility] [id number] [place] [address] 47871- 6996 Jan, [facility] [id number] [place] [address] 72337 -0890 Dec, Acute diarrhea R19.7 [facility] [address] 87862- 6626 Dec, [facility] [id number] [place] [address] 82600- 4471 Dec, [facility] [id number] [place] [address] 23878- 0556 Dec, [facility] [id number] [place] [address] 74223 -0125 Dec, N&V (nausea and vomiting) R11.2 [facility] [id number] [place] [address] 22554- 7592 Dec, Generalized anxiety disorder F41.1 [facility] [id number] [place] [address] 28808- 3225 Dec, Generalized anxiety disorder F41.1 [facility] [id number] [place] [address] 00980- 4320 Nov, Post concussion syndrome F07.81 [facility] [id number] [place] [address] 33347- 0501 Nov, Generalized anxiety disorder F41.1 [facility] [id number] [place] [address] 88827- 4769 Nov, [facility] [id number] [place] [address] 69928- 7630 Nov, Generalized anxiety disorder F41.1 [facility] [id number] [place] [address] [id number] Oct, Dental caries K02.9 [facility] [address], [place] [address]- 0572 Oct, [facility] [id number] [place] [address] [id number] Oct, Dental examination Z01.20 [facility] [id number] [place] [address] [id number] 10 Oct, 2015 Encounter for dental examination Z01.20 [facility] [address] 77502- 7180 09 Oct, 2015 CAD (coronary artery disease) I25.10 [facility] [address] 44649- 0242 Sep, Generalized anxiety disorder F41.1 [facility] [id number] [place] [address] 76968- 9106 Sep, [facility] [id number] [place] [address] 44670- 1451 Sep, Rash and other nonspecific skin eruption R21 and Yeast vaginitis B37.3 [facility] [id number] [place] [address] 50093- 0837 Sep, Generalized anxiety disorder F41.1 [facility] [id number] [place] [address] 24864- 0082 Aug, Insect bites 919.4 and Hemorrhoids 455.6 [facility] [id number] [place] [address] 79145- 0656 Aug, Generalized anxiety disorder 300.02 [facility] [id number] [place] [address] 33955- 9276 08 Aug, 2015 [facility] [id number] [place] [address] 21741- 4757 Aug, [facility] [id number] [place] [address] 24274- 0204 Aug, Generalized anxiety disorder 300.02 ; No condition on [place] II V71.09 ; Heart problem 429.9 and Hypertension 401.9 [facility] [id number] [address] Aug, [facility] [id number] [place] [address] 58027- 6284 Jul, [facility] [id number] [place] [address] 23332- 2218 Jul, [facility] [id number] [place] [address] 30886- 9326 Jul, [facility] [id number] [place] [address] 10563- 9440 Jul, [facility] [id number] [place] [address] 40288- 5918 Jul, Rash 782.1 [facility] [id number] [place] [address] [id number]- 3241 Jul, UTI (urinary tract infection) 599.0 [facility] [id number] [place] [address] 75958- 2817 Jul, [facility] [id number] [place] [address] 86599- 6991 Jun, Dysthymia 300.4 and Anxiety 300.00 [facility] [id number] [place] [address] 27198- 4617 Jun, 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 [facility] [id number] [place] [address] 98212- 4725 May, [facility] [id number] [place] [address] 06876- 4194 May, [facility] [id number] [place] [address] 24[address] May, Unspecified breast screening V76.10 [facility] [id number] [place] [address] [id number] May, Dental examination V72.2 [facility] [address] [id number] [place] [address] 2546 April, [facility] [address] [id number], [place] [address] 25[address] April, [facility] [address] [id number][place] [id number] April, Dental examination V72.2 [facility] [address] [id number][place] [id number] April, Dental examination V72.2 [facility] [address] [id number] [place] [address] 2546 Mar, [facility] [address] [id number], [place] [address]- 2546 Mar, [facility] [address] [id number], [place] [address] 2546 Jan, [facility] [address] [id number], [place] [address] 25 Jan, 2015 [facility] [address] [id number] [place] [address]- 5826 18 Jan, 2015 [facility] [address] [id number], [place] [address] 8716 18 Jan, 2015 [facility] [address] [id number], [place] [address]- 4746 16 Jan, 2015 [facility] [place] [facility] [address] [id number], [place] [address]- 2546 16 Jan, 2015 [facility] [place] [facility] [address] [id number], [place] [address]- 7086 13 Jan, 2015 [facility] [place] [facility] [address] [id number], [place] [address]- 2546 13 Jan, 2015 [facility] [address] [id number], [place] [address]- 7706 11 Jan, 2015 [facility] [place] [facility] [address] [id number] [place] [address]- 4751 Jan, [facility] [place] [facility] [address] [id number] [place] [address]- 8886 Jan, [facility] [place] [facility] [address] [id number] [place] [address]- 4626 Jan, [facility] [place] [facility] [address] [id number] [place] [address]- 3518 Jan, [facility] [place] [facility] [address] [id number] [place] [address]- 7391 Jan, [facility] [place] [facility] [address] [id number] [place] [address]- 6976 Jan, [facility] [place] [facility] [address] [id number] [place] [address]- 5109 Jan, [facility] [place] [facility] [address] [id number] [place] [address]- 0403 Jan, 2014 [facility] [place] [facility] [address] [id number] [place] [address]- 7570 Jan, [facility] [place] [facility] [address] [id number] [place] [address]- 2056 Jan, [facility] [place] [facility] [address] [id number] [place] [address]- 3993 Jan, [facility] [place] [facility] [address] [id number] [place] [address]- 3776 Jan, [facility] [place] [facility] [address] [id number] [place] [address]- 2266 Jan, [facility] [place] [facility] [address] [id number] [place] [address]- 7652 Dec, [facility] [place] [facility] [address] [id number] [place] [address]- 3439 Dec, [facility] [place] [facility] [address] [id number] [place] [address]- 1835 Dec, [facility] [place] [facility] [address] [id number] [place] [address]- 9548 Dec, [facility] [place] [facility] [address] [id number] [place] [address]- 2708 Nov, [facility] [place] [facility] [address] [id number] [place] [address]- 4483 Nov, [facility] [place] [facility] [address] [id number] [place] [address]- 5225 Nov, [facility] [place] [facility] [address] [id number] [place] [address]- 6929 Nov, [facility] [place] [facility] [address] [id number] [place] [address]- 1534 Nov, [facility] [place] [facility] [address] [id number] [place] [address]- 8441 Nov, [facility] [place] [facility] [address] [id number] [place] [address]- 7475 Nov, [facility] [place] [facility] [address] [id number] [place] [address]- 3707 Oct, [facility] [place] [facility] [address] [id number] [place] [address]- 7973 Oct, [facility] [place] [facility] [address] [id number] [place] [address]- 3215 Oct, [facility] [place] [facility] [address] [id number] [place] [address]- 9317 Oct, [facility] [place] [facility] [address] [id number] [place] [address]- 2848 Oct, [facility] [place] [facility] [address] [id number] [place] [address]- 3737 Oct, [facility] [place] [facility] [address] [id number] [place] [address]- 8800 Oct, [facility] [place] [facility] [address] [id number] [place] [address]- 3674 Oct, [facility] [place] [facility] [address] [id number] [place] [address]- 8410 Oct, [facility] [place] [facility] [address] [id number] [place] [address]- 1325 Oct, [facility] [place] [facility] [address] [id number] [place] [address]- 9426 Oct, [facility] [place] [facility] [address] [id number] [place] [address]- 5962 Oct, [facility] [place] [facility] [address] [id number] [place] [address]- 3310 Sep, [facility] [place] [facility] [address] [id number] [place] [address]- 1855 Sep, [facility] [place] [facility] [address] [id number] [place] [address]- 0274 Sep, [facility] [place] [facility] [address] [id number] [place] [address]- 6042 Sep, [facility] [place] [facility] [address] [id number] [place] [address]- 0826 Jul, [facility] [place] [facility] [address] [id number] [place] [address]- 9316 Jul, [facility] [place] [facility] [address] [id number] [place] [address]- 3880 Jul, [facility] [place] [facility] [address] [id number] [place] [address]- 9360 Jul, [facility] [place] [facility] [address] [id number] [place] [address]- 4527 Jun, [facility] [place] [facility] [address] [id number] [place] [address]- 0232 Jun, [facility] [place] [facility] [address] [id number] [place] [address]- 7276 Jun, [facility] [place] [facility] [address] [id number] [place] 9931 Jun, [facility] [place] [facility] [address] [id number] [place] [address]- 5513 May, [facility] [place] [facility] [address] [id number] [place] [address]- 3263 May, [facility] [place] [facility] [address] [id number] [place] [address]- 2890 April, [facility] [place] [facility] [address] [id number] [place] [address]- 4605 April, [facility] [place] [facility] [address] [id number] [place] [address]- 2761 April, [facility] [place] [facility] [address] [id number] [place] [address]- 3337 April, [facility] [place] [facility] [address] [id number] [place] [address]- 0429 April, [facility] [place] [facility] [address] [id number] [place] [address]- 2916 April, [facility] [place] [facility] [address] [id number] [place] [address]- 7097 April, [facility] [place] [facility] [address] [id number] [place] [address]- 8947 April, [facility] [place] [facility] [address] [id number] [place] [address]- 4939 April, [facility] [place] [facility] [address] [id number] [place] [address]- 7817 Mar, [facility] [place] [facility] [address] [id number] [place] [address]- 0190 Mar, [facility] [place] [facility] [address] [id number] [place] [address]- 9661 Mar, [facility] [place] [facility] [address] [id number] [place] [address]- 9965 Mar, [facility] [address] [id number] [place] [address]- 4197 Jan, [facility] [place] [facility] [address] [id number] [place] [address]- 4816 Jan, [facility] [place] [facility] [address] [id number] [place] [address]- 4596 Jan, [facility] [place] [facility] [address] [id number] [place] [address]- 7200 Jan, [facility] [place] [facility] [address] [id number] [place] [address]- 0593 Jan, [facility] [place] [facility] [address] [id number] [place] [address]- 7585 Jan, [facility] [place] [facility] [address] [id number] [place] [address]- 8016 Jan, [facility] [place] [facility] [address] [id number] [place] [address]- 0410 Jan, [facility] [place] [facility] [address] [id number] [place] [address]- 5570 Jan, [facility] [place] [facility] [address] [id number] [place] [address]- 7196 Jan, [facility] [place] [facility] [address] [id number] [place] [address]- 3298 Jan, [facility] [place] [facility] [address] [id number] [place] [address]- 0098 Jan, [facility] [place] [facility] [address] [id number] [place] [address]- 1845 Dec, [facility] [place] [facility] [address] [id number] [place] [address]- 9656 Dec, [facility] [place] [facility] [address] [id number] [place] [address]- 3342 Dec, [facility] [place] [facility] [address] [id number] [place] [address]- 4053 Dec, [facility] [place] [facility] [address] [id number] [place] [address]- 9741 Nov, [facility] [place] [facility] [address] [id number] [place] [address]- 7314 Nov, [facility] [place] [facility] [address] [id number] [place] [address]- 6617 Nov, [facility] [place] [facility] [address] [id number] [place] [address]- 9934 Nov, [facility] [place] [facility] [address] [id number] [place] [address]- 6636 Oct, [facility] [place] [facility] [address] [id number] [place] [address]- 3050 Oct, [facility] [place] [facility] [address] [id number] [place] [address]- 8045 Sep, [facility] [place] [facility] [address] [id number] [place] [address]- 3103 Sep, [facility] [place] [facility] [address] [id number] [place] [address]- 5281 Jul, [facility] [place] [facility] [address] [id number] [place] [address]- 7047 Jul, [facility] [place] [facility] [address] [id number], [place] [address]- 8699 Jun, [facility] [place] [facility] [address] [id number] [place] [address]- 9288 Jun, [facility] [place] [facility] [address] [id number] [place] [address]- 2040 Jun, [facility] [place] [facility] [address] [id number] [place] [address]- 2822 May, [facility] [place] [facility] [address] [id number] [place] [address]- 7730 May, [facility] [address] [id number] [place] [address]- 9931 May, [facility] [address] [id number] [place] [address]- 7149 May, [facility] [address] [id number] [place] [address]- 6124 May, [facility] [address] [id number] [place] [address]- 6753 April, [facility] [address] [id number] [place] [address]- 0059 April, [facility] [address] [id number] [place] [address]- 8945 April, [facility] [address] [id number] [place] [address]- 6479 April, [facility] [address] [id number] [place] [address]- 4810 April, [facility] [address] [id number] [place] [address]- 8419 April, [facility] [address] [id number] [place] [address]- 3824 Mar, [facility] [address] [id number] [place] [address]- 8128 Mar, [facility] [address] [id number] [place] [address]- 8012 Jan, [facility] [place] [facility] [address] [id number] [place] [address]- 2620 Jan, [facility] [place] [facility] [address] [id number] [place] [address]- 0210 Jan, [facility] [address] [id number] [place] [address]- 2309 Jan, [facility] [address] [id number] [place] [address] 2546 Jan, 2012 [facility] [place] [facility] [address] [id number] [place] [address]- 3286 Jan, 2012 [facility] [place] [facility] [address] [id number] [place] [address] 2546 05 Jan, 2012 [facility] [place] [facility] [address] [id number] [place] [address] 2546 Jan, 2012 [facility] [address] [id number] [place] [address] 2546 Jan, [facility] [place] [facility] [address] [id number] [place] [address] 2546 Jan, [facility] [address] [id number] [place] [address]- 0666 Jan, [facility] [address] [id number] [place] [address]- 8742 Dec, [facility] [address] [id number] [place] [address]- 6994 Nov, [facility] [address] [id number] [place] [address] 2547 Nov, [facility] [place] [facility] [address] [id number] [place] [address] 2546 Nov, [facility] [place] [facility] [address] [id number] [place] [address] 2546 Nov, [facility] [place] [facility] [address] [id number] [place] [address] 2546 Nov, [facility] [place] [facility] [address] [id number] [place] [address] 2546 Nov, [facility] [place] [facility] [address] [id number] [place] [address] 2546 Nov, [facility] [place] [facility] [address] [id number] [place] [address]- 1742 19 Nov, 2012 [facility] [place] [facility] [address] [id number] [place] [address]- 2074 19 Nov, 2012 [facility] [place] [facility] [address] [facility] [id number] [place] [address]- 0901 Nov, [facility] [place] [facility] [address] [facility] [id number] [place] [address]- 3092 Nov, [facility] [place] [facility] [address] [id number] [place] [address]- 8634 Nov, [facility] [place] [facility] [address] [id number] [place] [address]- 1841 Nov, [facility] [place] [facility] [address] [id number] [place] [address]- 3005 Oct, [facility] [place] [facility] [id number] [place] [address]- 5674 Oct, [facility] [place] [facility] [address] [facility] [id number] [place] [address]- 6250 Oct, [facility] [place] [facility] [address] [facility] [id number] [place] [address]- 5244 Sep, [facility] [place] [facility] [address] [facility] [id number] [place] [address]- 4779 Sep, [facility] [place] [facility] [address] [facility] [id number] [place] [address]- 0696 10 Sep, 2012 [facility] [place] [facility] [address] [facility] [id number], [place] [address]- 2597 10 Sep, 2012 [facility] [place] [facility] [address] [id number] [place] [address]- 1489 27 Aug, 2012 [facility] [place] [facility] [address] [facility] [id number] [place] [address]- 3163 20 Aug, 2012 [facility] [place] [facility] [address] [facility] [id number], [place] [address]- 5162 24 Jul, 2012 [facility] [place] [facility] [address] [id number] [place] [address]- 4131 27 May, 2012 [facility] [place] [facility] [address] [id number] [place] [address]- 0120 May, [facility] [place] [facility] [address] [id number] [place] [address]- 1426 May, [facility] [place] [facility] [address] [id number] [place] [address]- 1998 April, [facility] [place] [facility] [address] [id number] [place] [address]- 1735 Mar, [facility] [place] [facility] [address] [id number] [place] [address]- 1435 Mar, [facility] [place] [facility] [address] [id number] [place] [address]- 3231 Mar, [facility] [place] [facility] [address] [id number] [place] [address]- 1065 Jan, [facility] [place] [facility] [address] [id number] [place] [address]- 8586 Jan, [facility] [place] [facility] [address] [id number] [place] [address]- 9389 Jan, [facility] [place] [facility] [address] [id number] [place] [address]- 7158 Dec, [facility] [place] [facility] [address] [id number] [place] [address]- 2954 Dec, [facility] [place] [facility] [address] [id number] [place] [address]- 5943 Dec, [facility] [place] [facility] [address] [id number] [place] [address]- 8256 Dec, [facility] [place] [facility] [address] [id number] [place] [address]- 1321 Nov, [facility] [place] [facility] [address] [id number] [place] [address]- 1839 15 Nov, 2011 [facility] [place] [facility] [address] [id number] [place] 6811 03 Nov, 2011 [facility] [place] [facility] [address] [id number] [place] [address]- 2286 03 Oct, 2011 [facility] [place] [facility] [address] [id number] [place] 8400 31 Sep, 2011 [facility] [place] [facility] [address] [id number] [place] [address]- 1715 26 Sep, 2011 [facility] [place] [facility] [address] [id number] [place] [address]- 8079 13 Sep, 2011 [facility] [place] [facility] [address] [id number] [place] [address]- 2007 15 Nov, 2010 [facility] [place] [facility] [address] [id number] [place] [address]- 1980 23 Oct, 2010 [facility] [place] [facility] [address] [id number] [place] [address]- 4693 Oct, [facility] [place] [facility] [address] [id number] [place] [address]- 3481 18 Oct, 2010 [facility] [place] [facility] [address] [id number] [place] [address]- 5677 16 Oct, 2010 [facility] [place] [facility] [address] [id number], [place] [address]- 2909 Sep, [facility] [place] [facility] [address] [id number], [place] [address]- 4442 April, [facility] [place] [facility] [address] [id number] [place] [address]- 6696 Nov, [facility] [place] [facility] [address] [id number] [place] 1649 24 Nov, 2009 [facility] [place] [facility] [address] [id number] [place] [address]- 2520 Nov, [facility] [place] [facility] [address] [facility] [id number] [place] [address] [address] Nov, [facility] [address] [facility] [id number], [place] [address]- 0788 Nov, [facility] [address] [id number] 9052 Oct, [facility] [address] [facility] [id number][place] [address] Oct, [facility] [address] [facility] [id number][place] [id number] Sep, [facility] [address] [facility] [id number], [place] [address] Jan, IMMUNIZATIONS No Known Immunizations SOCIAL HISTORY Never Assessed REASON FOR VISIT Refill request PLAN OF CARE VITAL SIGNS MEDICATIONS Medication Instructions Dosage Frequency Start Date End Date Duration Status Rivastigmine 4.6 MG/24HR Transdermal Once a day 1 [...] History Depression Medical History At [facility] 04/2016 Started on Eliquis Medical History Anemia 04/2016 postsurgical hip fx Surgical History right hip replacement w/ Dr. Bruce 2011 Surgical History triple bypass surgery 2003 Surgical History S/P left hip IM Nail (Intertrechanteric hip fx) 04/28/16 Hospitalization History surgeries Hospitalization History Hypertension Hospitalization History ER for a concussion 11/24/15 Hospitalization History Intertrechanteric hip fx 04/27/16 Hospitalization History [facility] (inpatient [facility] times) Hx of 3 inpatient psych treatments in past in [place] oct 2016 [facility]
--- OUTSIDE RECORDS SUMMARY | 2019-02-11 14:11 | XMS REPORT ---
Author Author WOLF AGUIRRE [facility] Address [address] [place] [address] Care Team Providers Care Engineering Agent Name Role Phone WOLF AGUIRRE Unavailable PROBLEMS Type Condition ICD9-CM Code SYE35-ST Code Onset Dates Condition Status SNOMED Code Problem Sundowning F05 Active 325220096 Problem Constipation, unspecified constipation type K59.00 Active 63862675 Problem Reactive depression F32.9 Active 89137461 Problem Vascular dementia with behavior disturbance F01.51 Active 527446433854665 Problem Insomnia, unspecified type G47.00 Active 569031421 Problem Generalized anxiety disorder F41.1 Active 81012811 Problem Other chronic pain G89.29 Active 05472850 Problem Severe episode of recurrent major depressive disorder, without psychotic features F33.2 Active 82955385 Problem Slow transit constipation K59.01 Active 59725944 Problem 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 Active 095653805 Problem Obsessive thinking F42.8 Active 85531559 Problem Failure to thrive in adult R62.7 Active 749237562 Problem Dysthymic disorder F34.1 Active 98838535 Problem Hypertension I10 Active 28268989 Problem Mood disorder F39 Active 19197375 Problem Irritable bowel syndrome with diarrhea K58.0 Active 950183830 Problem Oropharyngeal dysphagia R13.12 Active 95636667 Problem 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 Active 51392265 Problem Other chronic pain G89.29 Active 65529840 Problem Primary insomnia F51.01 Active 8303695 Problem Poor appetite R63.0 Active 40603079 Problem 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 Active 377032487459672 Problem Iron deficiency anemia secondary to inadequate dietary iron intake D50.8 Active 377714112 Problem Coarse tremors G25.2 Active 32379897 Problem Gastroesophageal reflux disease without esophagitis K21.9 Active 884117670 Problem Essential hypertension I10 Active 00318603 ALLERGIES No Information ENCOUNTERS Encounter Location Date Diagnosis [facility] [id number] [address] Oct, [facility] [address] [id number] Oct, Generalized anxiety disorder F41.1 and Obsessive thinking F42.8 [facility] [id number] [place] [address] 90752- 4333 Sep, [facility] [id number] [place] [address] 02443- 8508 Sep, [facility] [id number] [place] [address] 21087- 1062 Sep, [facility] [id number] [place] [address] 90963- 9907 Sep, [facility] [address] [place] [id number] Sep, Generalized anxiety disorder F41.1 ; Obsessive thinking F42.8 and Mood disorder F39 [facility] [id number] [place] [address] 11023- 0006 Sep, [facility] [id number] [place] [address] 47601- 0825 Sep, [facility] [address] [place] [id number] Sep, [facility] [id number] [place] [address] 35955- 8236 Sep, [facility] [id number] [place] [address] 00923- 6480 Sep, [facility] [address] [place] [id number] Sep, Obsessive thinking F42.8 [facility] [address] [address] 7[address] Sep, [facility] [id number] [place] [address] 58255- 3845 Sep, [facility] [id number] [address] 27[address] Aug, [facility] [id number] [place] [address] 61975- 6324 Aug, [facility] [id number] [place] [address] 39250- 1670 Aug, Positive urine drug screen R82.5 [facility] [address] [place] [id number] Aug, [facility] [id number] [place] [address] 41781- 3911 Aug, [facility] [id number] [place] [address] 11934- 5684 Aug, [facility] [id number] [place] [address] 19447- 9366 Aug, Irritable bowel syndrome with diarrhea K58.0 [facility] [id number] [place] [address] 85621- 6929 Aug, [facility] [id number] [place] [address] 06004- 0067 Aug, Obsessive thinking F42.8 ; Insomnia, unspecified type G47.00 and Other chronic pain G89.29 [facility] [address] [place] [id number] Aug, Obsessive thinking F42.8 ; Irritable bowel syndrome with diarrhea K58.0 ; Pain in right foot M79.671 ; Pain of left foot M79.672 and Gastroesophageal reflux disease without esophagitis K21.9 [facility] [address] [address] 4468 Aug, [facility] [id number] [place] [address] 65961- 6523 Jul, [facility] [id number] [place] [address] 03795- 2008 Jun, [facility] [address] [address] Jun, [facility] [address] [place] [id number] Jun, Left lower quadrant pain R10.32 and Left leg pain M79.605 [facility] [id number] [address] 4[address] Jun, [facility] [address] [place] [id number] Jun, Pain in left hip M25.552 ; Pain in right hip M25.551 and Primary insomnia F51.01 [facility] [id number] [place] [address] 06585- 1056 Jun, [facility] [address] [place] [id number] May, [facility] [id number] [place] [address] 59824- 8641 May, [facility] [id number] [place] [address] 83754- 6583 May, [facility] [address] [id number] May, Mood disorder F39 [facility] [address] [address] 7[address] May, [facility] [id number] [place] [address] 19888- 8994 April, [facility] [address] [place] [id number] April, Generalized anxiety disorder F41.1 ; Obsessive thinking F42.8 and Insomnia , unspecified type G47.00 [facility] [address] [address] 99[address] April, [facility] [address] [address] 2170 April, Rash of face R21 [facility] [id number] [address] Mar, [facility] [id number] [place] [address] 54783- 1965 Mar, [facility] [id number] [place] [address] 71752- 8546 Mar, [facility] [id number] [place] [address] 12293- 4817 Jan, [facility] [id number] [place] [address] 97416- 1654 Jan, [facility] [address] [place] [id number] Jan, Constipation, unspecified constipation type K59.00 and Other chronic pain G89.29 [facility] [id number] [place] [address] 91273- 0761 Jan, [facility] [address] [place] [address] Jan, Obsessive thinking F42.8 and Coarse tremors G25.2 [facility] [id number] [place] [address] [id number] Jan, [facility] [id number] [place] [address] [id number] Jan, [facility] [address] [place] [id number] Jan, Generalized anxiety disorder F41.1 ; Obsessive thinking F42.8 ; Callus of foot L84 and 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 [facility] [address] [address] 39[address] Dec, Generalized anxiety disorder F41.1 and Severe episode of recurrent major depressive disorder, without psychotic features F33.2 [facility] [address] [address] 0420 Nov, [facility] [id number] [place] [address] 64118- 9904 Nov, [facility] [address] [place] [address] Nov, Oropharyngeal dysphagia R13.12 ; Generalized anxiety disorder F41.1 and 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 [facility] [address] Nov, [facility] [id number] [id number] Nov, [facility] [address] [address]- 4539 Nov, [facility] [id number] [place] [address] 80938- 5203 Nov, [facility] [address] [address]- 6687 Oct, Constipation, unspecified constipation type K59.00 and Mood disorder F39 [facility] [address] [address] 8315 Oct, [facility] [id number] [place] [address] [id number] Sep, [facility] [id number] [place] [address] [id number] Sep, [facility] [id number] [address] Sep, [facility] [id number] [place] [address] [id number] Sep, [facility] [address] [place] [address] Sep, Generalized abdominal pain R10.84 [facility] [address] [address] 2546 Sep, [facility] [id number] [id number] Sep, Generalized anxiety disorder F41.1 and Primary insomnia F51.01 [facility] [id number] [id number] Aug, [facility] [id number] [address] Aug, Generalized anxiety disorder F41.1 [facility] [id number] [address]- 6866 Jul, [facility] [address] [place] [id number] Jul, Obsessive thinking F42.8 [facility] [id number] [address]- 7200 Jul, Generalized anxiety disorder F41.1 and Irritable bowel syndrome with diarrhea K58.0 [facility] [id number] [id number] Jul, Generalized anxiety disorder F41.1 [facility] [id number] [address] Jun, Generalized anxiety disorder F41.1 [facility] [id number] [address]- 9679 May, [facility] [address] [id number] May, Generalized anxiety disorder F41.1 ; Irritable bowel syndrome with diarrhea K58.0 and Coarse tremors G25.2 [facility] [id number] [address]- 8043 April, [facility] [address] [address]- 3114 April, [facility] [id number] [address]- 7793 April, [facility] [id number] [address] Mar, [facility] [address] [place] [id number] Mar, Severe episode of recurrent major depressive disorder, without psychotic features F33.2 and Pain in left hip M25.552 [facility] [id number] [place] [address] 97688- 1104 Mar, [facility] [id number] [place] [address] 21192- 6997 Mar, [facility] [id number] [place] [address] 07038- 5319 Mar, [facility] [id number] [place] [address] 06579- 0662 Mar, Pain in right hip M25.551 and Self-care deficit in patient living alone R46.89 [facility] [id number] [place] [address] 28299 -6888 Jan, Other chronic pain G89.29 ; Pain in left hip M25.552 and Slow transit constipation K59.01 [place] [facility] [address] 01988- 4066 Jan, [facility] [id number] [place] [address] 75833- 4338 Dec, Other depression F32.89 ; Constipation, unspecified constipation type K59.00 and Insomnia, unspecified type G47.00 [facility] [id number] [place] [address] 01307- 2787 Nov, Reactive depression F32.9 ; Chronic idiopathic constipation K59.04 ; Generalized anxiety disorder F41.1 ; Coarse tremors G25.2 ; Gastroesophageal reflux disease without esophagitis K21.9 ; Dysthymic disorder F34.1 ; Vitamin deficiency, unspecified E56.9 and Primary insomnia F51.01 [facility] [id number] [place] [address] 60672- 5614 Nov, [facility] [id number] [place] [address] 03468- 6981 Nov, [facility] [id number] [place] [address] 46784- 8445 Nov, [facility] [id number] [place] [address] 71578- 4224 Nov, Reactive depression F32.9 ; Essential hypertension [...] intake D50.8 and Vitamin deficiency, unspecified E56.9 [facility] [address] 95909- 4753 Oct, [facility] [id number] [place] [address] 09886- 3856 Oct, [facility] [address] 28598- 5293 Oct, [facility] [address] 31286- 4043 Oct, Generalized anxiety disorder F41.1 ; Poor appetite R63.0 ; Dehydration E86.0 and Failure to thrive in adult R62.7 [facility] [id number] [place] [address] 63948- 2881 Oct, Generalized anxiety disorder F41.1 and Failure to thrive in adult R62.7 [facility] [id number] [place] [address] 47472- 0069 Oct, [facility] [address] 86795- 8883 Oct, [facility] [id number] [place] [address] 91634 -5630 Sep, Vaginal discharge N89.8 and Acute cystitis with hematuria N30.01 [place] [facility] [address] 21887- 9501 Sep, [facility] [id number] [place] [address] 40743- 5902 Sep, [place] [facility] [id number] [place] [address] 68570- 8754 Sep, Dysthymic disorder F34.1 ; Acute vaginitis N76.0 ; Dysuria R30.0 and Vaginal yeast infection B37.3 [place] [facility] [id number] [place] [address] 43619- 5580 Aug, [facility] [id number] [place] [address] 99546- 8448 Aug, [facility] [id number] [place] [address] 50410 -7196 Aug, Foul smelling urine R82.90 ; Rapid heart rate R00.0 and Flatulence R14.3 [facility] [id number] [place] [address] 89285- 5432 Aug, [facility] [id number] [place] [address] 75513- 4104 Jul, Constipation, unspecified constipation type K59.00 ; Weak R53.1 ; Poor appetite R63.0 ; Coronary artery disease involving ambler heart without angina pectoris, unspecified vessel or lesion type I25.10 ; Fatigue, unspecified type R53.83 ; Urinary incontinence, unspecified type R32 and Insomnia, unspecified type G47.00 [place] [facility] [id number] [place] [address] 11857- 7664 Jul, [facility] [id number] [place] [address] 72364- 0000 Jun, Dysuria R30.0 [facility] [id number] [place] [address] 63618- 9460 Jun, [facility] [id number] [place] [address] 23467- 4154 Jun, Urinary tract infection, site not specified N39.0 ; Acute vaginitis N76.0 and Diarrhea, unspecified type R19.7 [facility] [id number] [place] [address] 06647- 2620 May, [facility] [id number] [place] [address] 63028- 6930 April, [facility] [id number] [place] [address] [id number] April, Encounter for dental examination Z01.20 [facility] [address] 06648- 2029 April, [facility] [address] 28631- 3911 April, Tremor R25.1 and Episodic tension-type headache, not intractable G44.219 [facility] [address] 53563- 4057 Mar, [facility] [id number] [place] [address] 38685- 5521 Jan, Mood disorder F39 [facility] [address] 77743 -6903 Jan, [facility] [id number] [place] [address] 18210- 3213 Jan, [facility] [id number] [place] [address] 68465- 6908 Jan, [facility] [id number] [place] [address] 21198- 8211 Jan, [facility] [id number] [place] [address] 98095- 8010 Jan, [facility] [id number] [place] [address] 16004- 5380 Jan, [facility] [id number] [place] [address] 61256 -0440 Dec, Acute diarrhea R19.7 [facility] [id number] [place] [address] 21586- 8386 Dec, [facility] [id number] [place] [address] 10716- 3382 Dec, [facility] [id number] [place] [address] 20359- 1235 Dec, [facility] [id number] [place] [address] 58392 -6129 Dec, N&V (nausea and vomiting) R11.2 [facility] [id number] [place] [address] 49288- 2009 Dec, Generalized anxiety disorder F41.1 [facility] [id number] [place] [address] 31597- 0292 Dec, Generalized anxiety disorder F41.1 [facility] [id number] [place] [address] 51684- 5727 Nov, Post concussion syndrome F07.81 [facility] [id number] [place] [address] 85444- 2343 Nov, Generalized anxiety disorder F41.1 [facility] [id number] [place] [address] 03023- 4443 Nov, [facility] [id number] [place] [address] 28267- 4437 Nov, Generalized anxiety disorder F41.1 [facility] [id number] [place] [address] [id number] Oct, Dental caries K02.9 [facility] [id number] [place] [address] 78749- 4952 Oct, [facility] [id number] [place] [address] [id number] Oct, Dental examination Z01.20 [facility] [address] [id number] Oct, Encounter for dental examination Z01.20 [facility] [id number] [place] [address] 97645- 5736 Oct, CAD (coronary artery disease) I25.10 [facility] [id number] [place] [address] 99995- 4605 Sep, Generalized anxiety disorder F41.1 [facility] [address] 47117- 2024 Sep, [facility] [address] 87263- 7919 Sep, Rash and other nonspecific skin eruption R21 and Yeast vaginitis B37.3 [facility] [id number] [place] [address] 00857- 7500 Sep, Generalized anxiety disorder F41.1 [facility] [facility] [address] 40114- 1858 Aug, Insect bites 919.4 and Hemorrhoids 455.6 [facility] [address] 22324- 0692 Aug, Generalized anxiety disorder 300.02 [facility] [id number] [place] [address] 02915- 8465 Aug, [facility] [id number] [place] [address] 09204- 1737 Aug, [facility] [address] 79525- 4928 Aug, Generalized anxiety disorder 300.02 ; No condition on [place] II V71.09 ; Heart problem 429.9 and Hypertension 401.9 [place] [address] 66965- 8273 Aug, [facility] [address] 43047- 8291 Jul, [facility] [address] [place] [address]- 1885 Jul, [facility] [id number] [place] [address] 63434- 2165 Jul, [facility] [address] [address]- 2583 Jul, [facility] [id number] [place] [address] 15543- 0779 Jul, Rash 782.1 [facility] [id number] [place] [address] 47428- 4888 Jul, UTI (urinary tract infection) 599.0 [facility] [id number] [place] [address] 83441- 2914 Jul, [facility] [id number] [place] [address] 47069- 2354 Jun, Dysthymia 300.4 and Anxiety 300.00 [facility] [id number] [place] [address] 95827- 5090 Jun, 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 [facility] [id number] [place] [address] 38723- 0231 May, [facility] [id number] [place] [address] 61467- 5090 May, [facility] [id number] [place] [address] 79220- 1255 May, Unspecified breast screening V76.10 [facility] [id number] [place] [address] [id number] May, Dental examination V72.2 [facility] [id number] [place] [address] 49694- 0365 April, [facility] [id number] [place] [address] 66230- 2213 April, [facility] [id number] [place] [address] [id number] April, Dental examination V72.2 [facility] [address] [id number] [place] [id number] April, Dental examination V72.2 [facility] [address] [id number] [place] [address] 2896 14 Mar, 2015 [facility] [address] [id number] [place] [address] Mar, [facility] [address] [id number] [place] [address] 0906 25 Jan, 2015 [facility] [address] [id number] [place] [address] 7396 25 Jan, 2015 [facility] [address] [id number] [place] [address]- 4016 18 Jan, 2015 [facility] [address] [id number] [place] [address]- 3216 18 Jan, 2015 [facility] [address] [id number] [address] 16 Jan, 2015 [facility] [address] [id number] [place] [address] 16 Jan, 2015 [facility] [address] [id number] [address] Jan, [facility] [address] [id number] [place] [address] 0265 13 Jan, 2015 [facility] [address] [id number] [address]76 11 Jan, 2015 [facility] [address] [id number] [address] 9926 11 Jan, 2015 [facility] [address] [id number] [address] 11 Jan, 2015 [facility] [address] [id number] [address] Jan, [facility] [place] [facility] [address] [id number] [place] [address] Jan, [facility] [place] [facility] [address] [id number] [place] [address] Jan, [facility] [place] [facility] [address] [id number] [place] [address] 3814 Jan, 2014 [facility] [place] [facility] [address] [id number] [place] [address] 9272 Jan, 2014 [facility] [place] [facility] [address] [id number] [place] [address]- 2930 Jan, 2014 [facility] [place] [facility] [address] [id number] [place] [address]- 1633 Jan, 2014 [facility] [place] [facility] [address] [id number] [place] [address]- 2549 Jan, [facility] [place] [facility] [address] [id number] [place] [address] 8066 Jan, [facility] [place] [facility] [address] [id number] [place] [address]- 4906 Jan, [facility] [place] [facility] [address] [id number] [place] [address] 5393 Jan, [facility] [place] [facility] [address] [id number] [place] [address]- 6102 Dec, [facility] [place] [facility] [address] [id number] [place] [address]- 3133 Dec, [facility] [place] [facility] [address] [id number] [place] [address]- 8346 Dec, [facility] [place] [facility] [address] [id number] [place] [address]- 1777 Dec, [facility] [place] [facility] [address] [id number] [place] [address]- 3795 Nov, [facility] [place] [facility] [address] [id number] [place] [address]- 7650 Nov, [facility] [place] [facility] [address] [id number] [place] [address]- 3739 Nov, [facility] [place] [facility] [address] [id number] [place] [address]- 1817 Nov, [facility] [place] [facility] [address] [id number] [place] [address]- 1609 Nov, [facility] [place] [facility] [address] [id number] [place] [address]- 4485 Nov, [facility] [place] [facility] [address] [id number] [place] [address]- 1560 Nov, [facility] [place] [facility] [address] [id number] [place] [address]- 9426 Oct, [facility] [place] [facility] [address] [id number] [place] [address]- 7460 Oct, [facility] [place] [facility] [address] [id number] [place] [address]- 4284 Oct, [facility] [place] [facility] [address] [id number] [place] [address]- 9463 Oct, [facility] [place] [facility] [address] [id number] [place] [address]- 5349 Oct, [facility] [place] [facility] [address] [id number] [place] [address]- 6307 Oct, [facility] [place] [facility] [address] [id number] [place] [address]- 1008 Oct, [facility] [place] [facility] [address] [id number] [place] [address]- 9354 Oct, [facility] [place] [facility] [address] [id number] [place] [address]- 7938 Oct, [facility] [place] [facility] [address] [id number] [place] [address]- 5350 Oct, [facility] [place] [facility] [address] [id number] [place] [address]- 3740 Oct, [facility] [place] [facility] [address] [id number] [place] [address]- 3310 Oct, [facility] [place] [facility] [address] [id number] [place] [address]- 2225 Sep, [facility] [place] [facility] [address] [id number] [place] [address]- 9460 Sep, [facility] [place] [facility] [address] [id number] [place] [address]- 8566 Sep, [facility] [place] [facility] [address] [id number] [place] [address]- 6374 Sep, [facility] [place] [facility] [address] [id number] [place] [address]- 6464 Jul, [facility] [place] [facility] [address] [id number] [place] [address]- 7979 Jul, [facility] [place] [facility] [address] [id number] [place] [address]- 0785 Jul, [facility] [place] [facility] [address] [id number] [place] [address]- 2017 Jul, [facility] [place] [facility] [address] [id number] [place] [address]- 0288 Jun, [facility] [place] [facility] [address] [id number] [place] [address]- 1595 Jun, [facility] [place] [facility] [address] [id number] [place] [address]- 5842 Jun, [facility] [place] [facility] [address] [id number] [place] [address]- 0971 Jun, [facility] [place] [facility] [address] [id number] [place] [address]- 9260 May, [facility] [place] [facility] [address] [id number] [place] [address]- 6476 May, [facility] [address] [id number] [place] [address] April, [facility] [place] [facility] [address] [id number] [place] [address]- 2469 April, [facility] [place] [facility] [address] [id number] [place] [address]- 7228 April, [facility] [place] [facility] [address] [id number] [place] [address]- 3159 April, [facility] [place] [facility] [address] [id number] [place] [address]- 7035 April, [facility] [place] [facility] [address] [id number] [place] [address]- 0263 April, [facility] [place] [facility] [address] [id number] [place] [address]- 2360 April, [facility] [place] [facility] [address] [id number] [place] [address]- 1666 April, [facility] [place] [facility] [address] [id number] [place] [address]- 0869 April, [facility] [place] [facility] [address] [id number] [place] [address]- 7555 Mar, [facility] [place] [facility] [address] [id number] [place] [address]- 8398 Mar, [facility] [place] [facility] [address] [id number] [place] [address]- 4656 Mar, [facility] [place] [facility] [address] [id number] [place] [address]- 9930 Mar, [facility] [place] [facility] [address] [id number] [place] [address]- 1254 Jan, [facility] [place] [facility] [address] [id number] [place] [address] Jan, [facility] [place] [facility] [address] [id number] [place] [address]- 2126 11 Jan, 2014 [facility] [place] [facility] [address] [id number] [place] [address]- 2961 11 Jan, 2014 [facility] [place] [facility] [address] [id number] [place] [address]- 7076 10 Jan, 2014 [facility] [place] [facility] [address] [id number] [place] [address]- 6912 10 Jan, 2014 [facility] [place] [facility] [address] [id number] [place] [address]- 0956 07 Jan, 2014 [facility] [place] [facility] [address] [id number] [place] [address]- 2443 Jan, [facility] [place] [facility] [address] [id number] [place] [address]- 3510 24 Jan, 2014 [facility] [place] [facility] [address] [id number] [place] [address]- 6894 Jan, [facility] [place] [facility] [address] [id number] [place] [address]- 0627 Jan, [facility] [place] [facility] [address] [id number] [place] [address]- 0046 Jan, [facility] [place] [facility] [address] [facility] [id number] [place] [address]- 8304 Dec, [facility] [place] [facility] [address] [id number] [place] [address]- 9593 Dec, [facility] [place] [facility] [address] [id number] [place] [address]- 3977 Dec, [facility] [place] [facility] [address] [id number] [place] [address]- 2995 Dec, [facility] [place] [facility] [address] [id number] [place] [address]- 7714 Nov, [facility] [place] [facility] [address] [id number] [place] [address]- 2755 Nov, [facility] [place] [facility] [address] [id number] [place] [address]- 4889 Nov, [facility] [place] [facility] [address] [id number] [place] [address]- 6515 Nov, [facility] [place] [facility] [address] [id number] [place] [address]- 6431 Oct, [facility] [place] [facility] [address] [id number] [place] [address]- 2429 Oct, [facility] [place] [facility] [address] [id number] [place] [address]- 0045 Sep, [facility] [place] [facility] [address] [id number] [place] [address]- 5615 Sep, [facility] [place] [facility] [address] [id number] [place] [address]- 9496 Jul, [facility] [place] [facility] [address] [id number] [place] [address]- 4440 Jul, [facility] [place] [facility] [address] [id number] [place] [address]- 2540 Jun, [facility] [place] [facility] [address] [id number] [place] [address]- 2029 Jun, [facility] [place] [facility] [address] [id number], [place] [address]- 9437 Jun, [facility] [place] [facility] [address] [id number], [place] [address] 0116 May, [facility] [place] [facility] [address] [id number] [place] [address]- 2107 May, [facility] [place] [facility] [address] [id number], [place] [address]- [address]894 17 May, 2013 [facility] [place] [facility] [address] [id number] [place] [address]- 3680 May, [facility] [place] [facility] [address] [id number] [place] [address]- 8105 May, [facility] [address] [id number] [place] [address]- 2174 April, [facility] [address] [id number] [place] [address]- 0449 April, [facility] [address] [id number] [place] [address]- 0656 April, [facility] [address] [id number] [place] [address]- 2988 April, [facility] [address] [id number] [place] [address]- 8936 April, [facility] [address] [id number] [place] [address]- 1086 April, [facility] [address] [id number] [place] [address]- 0918 Mar, [facility] [address] [id number] [place] [address]- 4721 Mar, [facility] [address] [id number] [place] [address]- 0043 Jan, [facility] [address] [id number] [place] [address]- 3550 Jan, [facility] [address] [id number] [place] [address]- 1151 Jan, [facility] [address] [id number] [place] [address]- 2542 Jan, [facility] [place] [facility] [address] [id number] [place] [address]- 4091 Jan, [facility] [place] [facility] [address] [id number] [place] [address]- 2066 Jan, [facility] [address] [id number] [place] [address]- 9009 Jan, [facility] [place] [facility] [address] [id number] [place] [address]- 6536 04 Jan, 2012 [facility] [address] [id number] [place] [address]- 4496 Jan, [facility] [address] [id number] [place] [address] 2546 Jan, [facility] [address] [id number] [place] [address]- 3293 Jan, [facility] [address] [id number] [place] [address]- 5045 Dec, [facility] [address] [id number] [place] [address]- 8916 Nov, [facility] [address] [id number] [place] [address]- 5967 Nov, [facility] [address] [id number] [place] [address]- 4328 Nov, [facility] [address] [id number] [place] [address]- 2923 Nov, [facility] [address] [id number] [place] [address]- 4039 Nov, [facility] [address] [id number] [place] [address] 2548 Nov, [facility] [place] [facility] [address] [id number] [place] [address] 2546 Nov, [facility] [place] [facility] [address] [id number] [place] [address] 2546 Nov, [facility] [place] [facility] [address] [id number] [place] [address]- 2547 Nov, [facility] [place] [facility] [address] [id number] [place] [address]- 6626 18 Nov, 2012 [facility] [place] [facility] [address] [id number] [place] [address]- 9131 18 Nov, 2012 [facility] [place] [facility] [address] [id number] [place] [address]- 0605 11 Nov, 2012 [facility] [place] [facility] [address] [id number] [place] [address]- 1104 11 Nov, 2012 [facility] [place] [facility] [address] [facility] [id number] [place] [address]- 5346 17 Oct, 2012 [facility] [place] [facility] [address] [id number] [place] [address]- 0633 Oct, [facility] [place] [facility] [address] [id number] [place] [address]- 4690 Oct, [facility] [place] [facility] [address] [id number] [place] [address]- 5959 Sep, [facility] [place] [facility] [address] [facility] [id number] [place] [address]- 4248 Sep, [facility] [place] [facility] [address] [id number] [place] [address]- 3113 Sep, [facility] [place] [facility] [address] [facility] [id number] [place] [address]- 8259 10 Sep, 2012 [facility] [place] [facility] [address] [facility] [id number] [place] [address]- 1319 27 Aug, 2012 [facility] [place] [facility] [address] [id number] [place] [address]- 6346 20 Aug, 2012 [facility] [place] [facility] [address] [id number] [place] [address]- 6060 24 Jul, 2012 [facility] [place] [facility] [address] [id number] [place] [address]- 0437 27 May, 2012 [facility] [place] [facility] [address] [facility] [id number] [place] [address]- 7358 14 May, 2012 [facility] [place] [facility] [address] [facility] [id number] [place] [address]- 5835 14 May, 2012 [facility] [place] [facility] [address] [id number] [place] [address]- 0201 April, [facility] [address] [id number] [place] [address]- 5083 Mar, [facility] [place] [facility] [address] [id number] [place] [address]- 4028 Mar, [facility] [address] [id number] [place] [address]- 3682 Mar, [facility] [address] [id number] [place] [address]- 5955 Jan, [facility] [place] [facility] [address] [id number] [place] [address]- 0403 Jan, [facility] [address] [id number] [place] [address]- 1070 Jan, [facility] [address] [id number] [place] [address]- 1156 Dec, [facility] [address] [id number] [place] [address]- 8313 Dec, [facility] [address] [id number] [place] [address]- 4821 Dec, [facility] [place] [facility] [address] [id number] [place] [address]- 2108 Dec, [facility] [address] [id number] [place] [address]- 2898 Nov, [facility] [place] [facility] [address] [id number] [place] [address]- 7493 Nov, [facility] [place] [facility] [address] [id number] [place] [address]- 8416 Nov, [facility] [place] [facility] [address] [id number] [place] [address]- 3693 Oct, [facility] [place] [facility] [address] [id number] [place] [address]- 7038 31 Sep, 2011 [facility] [place] [facility] [address] [id number] [place] [address]- 5349 26 Sep, 2011 [facility] [place] [facility] [address] [id number] [place] [address]- 1156 13 Sep, 2011 [facility] [place] [facility] [address] [id number] [place] [address]- 4846 15 Nov, 2010 [facility] [place] [facility] [address] [id number] [place] [address]- 9871 23 Oct, 2010 [facility] [place] [facility] [address] [id number] [place] [address]- 8011 Oct, [facility] [place] [facility] [address] [id number] [place] [address]- 6253 Oct, [facility] [place] [facility] [address] [id number] [place] [address]- 8751 16 Oct, 2010 [facility] [place] [facility] [address] [id number] [place] [address]- 8045 Sep, [facility] [place] [facility] [address] [id number] [place] [address]- 2686 April, [facility] [place] [facility] [address] [id number] [place] [address]- 7552 29 Nov, 2009 [facility] [place] [facility] [address] [id number] [address]- 7466 24 Nov, 2009 [facility] [place] [facility] [address] [id number], [place] [address]- 9847 22 Nov, 2009 [facility] [place] [facility] [address] [id number] [place] [address] 2546 10 Nov, 2009 [facility] [place] [facility] [address] [id number], [place] [address]- 5812 Nov, [facility] [place] [facility] [address] [id number] [place] [address]- 2543 19 Oct, 2009 [facility] [place] [facility] [address] [facility] [id number] [place] [address]- 1736 Oct, [facility] [address] [facility] [id number] 8148 Sep, [facility] [address] [facility] [id number] [address]338 Jan, IMMUNIZATIONS No Known Immunizations SOCIAL HISTORY Never Assessed REASON FOR VISIT medication reconciliation--per order summary CO PLAN OF CARE VITAL SIGNS MEDICATIONS Medication Instructions Dosage Frequency Start Date End Date Duration Status Zantac 150 mg Orally twice a day 1 tablet 12h Jun, 30 day(s) Active Desoximetasone 0.25 % Externally Twice a day 1 application to affected area 12h Active Mirtazapine 15 MG TAKE 1 TABLET BY MOUTH EVERY NIGHT AT BEDTIME 30 Active Tylenol 325 MG Orally every 4 hrs 2 capsules as needed 4h Active Melatonin 3 MG Orally Once a day 1 tablet at bedtime as needed with food 24h 30 day(s) Active Isopto Tears 0.5 % Ophthalmic every 6 hours as needed for PRN- dry eyes 1 drop in both eyes Active Vitamin D-3 1000 UNIT Orally Once a day at bedtime 2 capsules Active Risperidone 1 MG Orally Once a day 1 tablet 24h 30 day(s) Active Aspir-81 81 MG Orally Once a day 1 tablet 24h Nov, Active Duloxetine HCl 30 MG Orally Once a day 1 capsule 24h 30 day(s) Active Folic Acid 1 MG Orally Once a day at bedime 1 tablet Active Clonazepam 0.5 MG Orally Once a day at bedtime 1 tablet at bedtime 28 days Not-Taking Rivastigmine 4.6 MG/24HR APPLY ONE PATCH EXTERNALLY ONCE DAILY 30 Active Milk of Magnesia 7.75 % Orally once daily 30 ml as needed 24h Active Gabapentin 100 mg Orally 2 times a day 1 capsule 12h Jun, Not-Taking Pravastatin Sodium 20 MG TAKE 1 TABLET BY MOUTH EVERY NIGHT AT BEDTIME 30 Active RESULTS No Results PROCEDURES No Known procedures INSTRUCTIONS MEDICATIONS ADMINISTERED No Known Medications MEDICAL (GENERAL) HISTORY Type Description Date Medical History Hypertension Medical History Heart disease CABG X3 Stress test 07/2015 Medical History Gastric ulcer Medical History Hyperlipidemia Medical History Headache syndrome Medical History Psychiatric disorders-depression/racing thoughts Medical History Depression Medical History At [facility] 04/2016 Started on Eliquis Medical History Anemia 04/2016 postsurgical hip fx Surgical History right hip replacement w/ Dr. Bruce 2011 Surgical History triple bypass surgery 2003 Surgical History S/P left hip IM Nail (Intertrechanteric hip fx) 04/28/16 Hospitalization History surgeries Hospitalization History Hypertension Hospitalization History ER for a concussion 11/24/15 Hospitalization History Intertrechanteric hip fx 04/27/16 Hospitalization History [facility] ([facility]patient [facility] times) Hx of 3 inpatient psych treatments in past in [place] oct 2016 [facility]
--- OUTSIDE RECORDS SUMMARY | 2019-02-11 14:11 | XMS REPORT ---
Author Author WOLF AGUIRRE [facility] Address [address] [place] [address] Care Team Providers Care Neon Installer Name Role Phone WOLF AGUIRRE Unavailable PROBLEMS Type Condition ICD9-CM Code DGL72-DH Code Onset Dates Condition Status SNOMED Code Problem Sundowning F05 Active 103429777 Problem Constipation, unspecified constipation type K59.00 Active 15677257 Problem Reactive depression F32.9 Active 00798427 Problem Vascular dementia with behavior disturbance F01.51 Active [id number] Problem Insomnia, unspecified type G47.00 Active 290008736 Problem Generalized anxiety disorder F41.1 Active 97060804 Problem Other chronic pain G89.29 Active 65510001 Problem Severe episode of recurrent major depressive disorder, without psychotic features F33.2 Active 36449654 Problem Slow transit constipation K59.01 Active 87961037 Problem 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 Active 193754935 Problem Obsessive thinking F42.8 Active 90396125 Problem Failure to thrive in adult R62.7 Active 268120301 Problem Dysthymic disorder F34.1 Active 26009711 Problem Hypertension I10 Active 40262383 Problem Mood disorder F39 Active 39455238 Problem Irritable bowel syndrome with diarrhea K58.0 Active 612616853 Problem Oropharyngeal dysphagia R13.12 Active 52796674 Problem 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 Active 82645695 Problem Other chronic pain G89.29 Active 92554172 Problem Primary insomnia F51.01 Active 4969281 Problem Poor appetite R63.0 Active 22380971 Problem 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 Active 396560988140212 Problem Iron deficiency anemia secondary to inadequate dietary iron intake D50.8 Active 069455737 Problem Coarse tremors G25.2 Active 81509030 Problem Gastroesophageal reflux disease without esophagitis K21.9 Active 239155037 Problem Essential hypertension I10 Active 62520426 ALLERGIES No Information ENCOUNTERS Encounter Location Date Diagnosis [facility] [address] [address] Oct, [facility] [id number] [place] [address] 65369- 8879 Oct, [facility] [id number] [place] [address] 85798- 6367 Oct, [facility] [address] [place] [id number] Oct, Generalized anxiety disorder F41.1 and Obsessive thinking F42.8 [facility] [id number] [place] [address] 69253- 9413 Sep, [facility] [id number] [place] [address] 85993- 9223 Sep, [facility] [id number] [place] [address] 99905- 1636 Sep, [facility] [address] [place] [address] 45187- 9384 Sep, [facility] [address] [place] [id number] Sep, Generalized anxiety disorder F41.1 ; Obsessive thinking F42.8 and Mood disorder F39 [facility] [address] [place] [address] 96490- 9616 Sep, [facility] [address] [place] [address] 43164- 9976 Sep, [facility] [address] [place] [id number] Sep, [facility] [id number] [place] [address] 26072- 3496 Sep, [facility] [address], [place] [address] 0458 Sep, [facility] [address] [place] [id number] Sep, Obsessive thinking F42.8 [facility] [address], [place] [address] 3298 Sep, [facility] [address] [place] [address] 05476- 9818 Sep, [facility] [address], [place] [address] 6017 Aug, [facility] [id number] [place] [address] 05534- 1718 Aug, [facility] [address] [place] [address] 18988- 6909 Aug, Positive urine drug screen R82.5 [facility] [address] [place] [address] Aug, [facility] [address] [place] [address] 85525- 0225 Aug, [facility] [address] [place] [address] 34555- 7302 Aug, [facility] [address] [place] [address] 59095- 1337 Aug, Irritable bowel syndrome with diarrhea K58.0 [facility] [address], [place] [address] 1365 Aug, [facility] [address] [place] [address] 59584- 8752 Aug, Obsessive thinking F42.8 ; Insomnia, unspecified type G47.00 and Other chronic pain G89.29 [facility] [address] [place] [address] Aug, Obsessive thinking F42.8 ; Irritable bowel syndrome with diarrhea K58.0 ; Pain in right foot M79.671 ; Pain of left foot M79.672 and Gastroesophageal reflux disease without esophagitis K21.9 [facility] [address], [place] [address]- 5734 05 Aug, 2018 [facility] [address], [place] [address] 8357 Jul, [facility] [address], [place] [address] 3263 Jun, [facility] [address], [place] [address]- 1766 Jun, [facility] [address] [place] [id number] Jun, Left lower quadrant pain R10.32 and Left leg pain M79.605 [facility] [address] [place] [address] 46782- 1027 Jun, [facility] [address] [place] [id number] Jun, Pain in left hip M25.552 ; Pain in right hip M25.551 and Primary insomnia F51.01 [facility] [address] [place] [address] 99357- 8656 Jun, [facility] [address] [place] [id number] May, [facility] [address], [place] [address]- 2070 May, [facility] [address], [place] [address]- 1429 May, [facility] [address] [place] [id number] May, Mood disorder F39 [facility] [address], [place] [address]- 8569 May, [facility] [address] [place] [address] 63300- 2674 April, [facility] [address] [place] [address] April, Generalized anxiety disorder F41.1 ; Obsessive thinking F42.8 and Insomnia , unspecified type G47.00 [facility] [address] [address] 0379 April, [facility] [address], [place] [address] 8613 April, Rash of face R21 [facility] [address], [place] [address] 7430 Mar, [facility] [address] [place] [address] 83620- 5695 Mar, [facility] [id number] [place] [address] 25806- 5445 Mar, [facility] [id number] [place] [address] 00709- 8339 Jan, [facility] [address] [place] [address] 80453- 5463 Jan, [facility] [address] [id number] Jan, Constipation, unspecified constipation type K59.00 and Other chronic pain G89.29 [facility] [address] [place] [address] 31220- 7228 Jan, [facility] [address] [id number] Jan, Obsessive thinking F42.8 and Coarse tremors G25.2 [facility] [id number] [place] [address] [id number] Jan, [facility] [id number] [place] [address] [id number] Jan, [facility] [address] [place] [address] Jan, Generalized anxiety disorder F41.1 ; Obsessive thinking F42.8 ; Callus of foot L84 and 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 [facility] [address] [address] 4[address] Dec, Generalized anxiety disorder F41.1 and Severe episode of recurrent major depressive disorder, without psychotic features F33.2 [facility] [address], [place] [address]- 5868 Nov, [facility] [address] [place] [address] 28080- 7992 Nov, [facility] [address] [place] [address] Nov, Oropharyngeal dysphagia R13.12 ; Generalized anxiety disorder F41.1 and 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 [facility] [address], [place] [address] 0315 Nov, [facility] [id number] [place] [address] [id number] Nov, [facility] [address] [place] [address] 28944- 8976 Nov, [facility] [id number] [place] [address] 97883- 1717 Nov, [facility] [address] [place] [address] 60935- 8867 Oct, Constipation, unspecified constipation type K59.00 and Mood disorder F39 [facility] [address] [place] [address] 05100- 8597 Oct, [facility] [id number] [place] [address] [id number] Sep, [facility] [id number] [place] [address] [id number] Sep, [facility] [id number] [place] [address] [id number] Sep, [facility] [id number] [place] [address] [id number] Sep, [facility] [address] [place] [address] Sep, Generalized abdominal pain R10.84 [facility] [address] [place] [address] 84912- 1426 Sep, [facility] [id number] [address] Sep, Generalized anxiety disorder F41.1 and Primary insomnia F51.01 [facility] [id number] [id number] Aug, [facility] [id number] [id number] Aug, Generalized anxiety disorder F41.1 [facility] [address] [address] 8638 Jul, [facility] [address] [place] [address] Jul, Obsessive thinking F42.8 [facility] [address], [place] [address]- 7372 Jul, Generalized anxiety disorder F41.1 and Irritable bowel syndrome with diarrhea K58.0 [facility] [id number] [id number] Jul, Generalized anxiety disorder F41.1 [facility] [address] [id number] Jun, Generalized anxiety disorder F41.1 [facility] [address], [place] [address]- 3627 May, [facility] [address] [place] [address] May, Generalized anxiety disorder F41.1 ; Irritable bowel syndrome with diarrhea K58.0 and Coarse tremors G25.2 [facility] [address], [place] [address]- 0724 April, [facility] [address], [place] [address]- 1636 April, [facility] [id number], [place] [address]- 8250 April, [facility] [address], [place] [address]- 0150 Mar, [facility] [address] [place] [id number] Mar, Severe episode of recurrent major depressive disorder, without psychotic features F33.2 and Pain in left hip M25.552 [facility] [address] [place] [address] 23666- 4829 Mar, [facility] [id number] [place] [address] 38192- 6608 Mar, [facility] [id number] [place] [address] 38632- 8199 Mar, [facility] [id number] [place] [address] 04942- 9997 Mar, Pain in right hip M25.551 and Self-care deficit in patient living alone R46.89 [facility] [id number] [place] [address] 86389 -0992 Jan, Other chronic pain G89.29 ; Pain in left hip M25.552 and Slow transit constipation K59.01 [place] [id number] [place] [address] 72489- 9421 Jan, [facility] [id number] [place] [address] 81388- 3171 Dec, Other depression F32.89 ; Constipation, unspecified constipation type K59.00 and Insomnia, unspecified type G47.00 [facility] [address] [place] [address] 45517- 0782 Nov, Reactive depression F32.9 ; Chronic idiopathic constipation K59.04 ; Generalized anxiety disorder F41.1 ; Coarse tremors G25.2 ; Gastroesophageal reflux disease without esophagitis K21.9 ; Dysthymic disorder F34.1 ; Vitamin deficiency, unspecified E56.9 and Primary insomnia F51.01 [facility] [id number] [place] [address] 34620- 8742 Nov, [facility] [id number] [place] [address] 73423- 8125 Nov, [place] [id number] [place] [address] 25006- 7544 Nov, [facility] [id number] [place] [address] 60934- 3942 Nov, Reactive depression F32.9 ; Essential hypertension I10 ; Generalized anxiety disorder F41.1 ; 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 ; Pain in right hip M25.551 ; Other chronic pain G89.29 ; Chronic idiopathic constipation K59.04 ; Primary insomnia F51.01 ; Coarse tremors G25.2 ; Gastroesophageal reflux disease without esophagitis K21.9 ; Iron deficiency anemia secondary to inadequate dietary iron intake D50.8 and Vitamin deficiency, unspecified E56.9 [facility] [id number] [place] [address] 18524- 3263 Oct, [facility] [id number] [place] [address] 86602- 2795 Oct, [place] [facility] [address] 41250- 4967 Oct, [facility] [id number] [place] [address] 50438- 7614 Oct, Generalized anxiety disorder F41.1 ; Poor appetite R63.0 ; Dehydration E86.0 and Failure to thrive in adult R62.7 [facility] [id number] [place] [address] 50378- 8231 07 Oct, 2016 Generalized anxiety disorder F41.1 and Failure to thrive in adult R62.7 [facility] [id number] [place] [address] 77984- 2505 Oct, [place] [facility] [id number] [place] [address] 10008- 9970 Oct, [facility] [id number] [place] [address] 68162 -6973 Sep, Vaginal discharge N89.8 and Acute cystitis with hematuria N30.01 [facility] [id number] [place] [address] 88231- 4229 Sep, [facility] [id number] [place] [address] 24987- 7831 Sep, [facility] [address] 20696- 0946 Sep, Dysthymic disorder F34.1 ; Acute vaginitis N76.0 ; Dysuria R30.0 and Vaginal yeast infection B37.3 [facility] [id number] [place] [address] 21423- 2677 Aug, [place] [facility] [id number] [place] [address] 97663- 2903 Aug, [facility] [address] 15869 -3916 Aug, Foul smelling urine R82.90 ; Rapid heart rate R00.0 and Flatulence R14.3 [facility] [id number] [place] [address] 29109- 4553 Aug, [facility] [id number] [place] [address] 69020- 1608 Jul, Constipation, unspecified constipation type K59.00 ; Weak R53.1 ; Poor appetite R63.0 ; Coronary artery disease involving pala heart without angina pectoris, unspecified vessel or lesion type I25.10 ; Fatigue, unspecified type R53.83 ; Urinary incontinence, unspecified type R32 and Insomnia, unspecified type G47.00 [facility] [id number] [place] [address] 05680- 6311 Jul, [facility] [id number] [place] [address] 61352- 2861 Jun, Dysuria R30.0 [place] [address] [address]- 8239 Jun, [facility] [id number] [place] [address] 91671- 1856 Jun, Urinary tract infection, site not specified N39.0 ; Acute vaginitis N76.0 and Diarrhea, unspecified type R19.7 [facility] [address] [place] [address] 00068- 3391 May, [facility] [id number] [place] [address] 86633- 1358 April, [facility] [id number] [place] [address] [id number] April, Encounter for dental examination Z01.20 [facility] [id number] [place] [address] 48737- 0475 April, [facility] [id number] [place] [address] 13366- 5994 April, Tremor R25.1 and Episodic tension-type headache, not intractable G44.219 [facility] [id number] [place] [address] 49615- 9773 Mar, [facility] [id number] [place] [address] 88927- 1267 Jan, Mood disorder F39 [facility] [address] [place] [address] 93871 -1514 Jan, [facility] [address], [place] [address]- 4621 Jan, [facility] [id number] [place] [address] 90542- 8548 Jan, [facility] [id number] [place] [address] 93006- 6534 Jan, [facility] [address], [place] [address]- 0161 Jan, [place] [address], [place] [address]- 4879 Jan, [facility] [id number] [place] [address] 46989 -8398 Dec, Acute diarrhea R19.7 [facility] [id number] [place] [address] 79727- 0185 Dec, [facility] [id number] [place] [address] 10437- 1857 Dec, [facility] [id number] [place] [address] 81173- 1541 Dec, [facility] [id number] [place] [address] 63053 -0957 Dec, N&V (nausea and vomiting) R11.2 [facility] [id number] [place] [address] 82023- 9956 Dec, Generalized anxiety disorder F41.1 [facility] [id number] [place] [address] 23632- 7629 Dec, Generalized anxiety disorder F41.1 [facility] [id number] [place] [address] 13961- 6205 Nov, Post concussion syndrome F07.81 [facility] [id number] [place] [address] 68942- 9141 Nov, Generalized anxiety disorder F41.1 [facility] [id number] [place] [address] 11404- 5113 Nov, [facility] [id number] [place] [address] 98274- 9718 Nov, Generalized anxiety disorder F41.1 [facility] [address] [place] [address] [id number] Oct, Dental caries K02.9 [facility] [id number] [place] [address] 78612- 9575 Oct, [facility] [id number] [id number] Oct, Dental examination Z01.20 [facility] [id number] [place] [address] [id number] 10 Oct, 2015 Encounter for dental examination Z01.20 [facility] [id number] [place] [address] 02690- 1311 Oct, CAD (coronary artery disease) I25.10 [facility] [id number] [place] [address] 45946- 3217 Sep, Generalized anxiety disorder F41.1 [facility] [address] 13306- 5068 Sep, [facility] [id number] [place] [address] 88188- 1054 Sep, Rash and other nonspecific skin eruption R21 and Yeast vaginitis B37.3 [facility] [id number] [place] [address] 20444- 2774 Sep, Generalized anxiety disorder F41.1 [facility] [id number] [place] [address] 70713- 7869 Aug, Insect bites 919.4 and Hemorrhoids 455.6 [place] [id number] [place] [address] 43146- 5627 Aug, Generalized anxiety disorder 300.02 [facility] [id number] [place] [address] 42157- 4006 08 Aug, 2015 [facility] [id number] [place] [address] 56770- 4493 Aug, [place] [id number] [place] [address] 96237- 2855 Aug, Generalized anxiety disorder 300.02 ; No condition on Gu[place] II V71.09 ; Heart problem 429.9 and Hypertension 401.9 [place] [facility] [address] [place] [address]- 3291 Aug, [facility] [address], [place] [address]- 9774 Jul, [facility] [address], [place] [address]- 3587 Jul, [facility] [address] [place] [address] 29597- 3950 Jul, [facility] [id number] [place] [address] 37374- 6106 Jul, [facility] [id number] [place] [address] 34838- 6660 Jul, Rash 782.1 [facility] [id number] [place] [address] 59546- 1588 Jul, UTI (urinary tract infection) 599.0 [facility] [address] [place] [address] 65566- 5265 Jul, [facility] [address] [place] [address] 59167- 8802 Jun, Dysthymia 300.4 and Anxiety 300.00 [facility] [address], [place] [address]- 2951 Jun, 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 [facility] [address], [place] [address]- 5188 May, [facility] [address], [place] [address]- 9638 May, [facility] [address] [place] [address] 37254- 7897 May, Unspecified breast screening V76.10 [facility] [address] [id number] May, Dental examination V72.2 [facility] [address] [place] [address] 69444- 4666 April, [facility] [address] [id number] [place] [address]- 3576 April, [facility] [address] [id number] [place] [id number] April, Dental examination V72.2 [facility] [address] [id number] [place] [id number] April, Dental examination V72.2 [facility] [address] [id number] [place] [address] Mar, [facility] [address] [id number] [place] [address] Mar, [facility] [address] [id number] [place] [address] Jan, [facility] [address] [id number] [place] [address] 25 Jan, 2015 [facility] [address] [id number] [id number] 18 Jan, 2015 [facility] [address] [id number] [place] [address] 18 Jan, 2015 [facility] [address] [id number] [id number] [address] 16 Jan, 2015 [facility] [address] [id number] [place] [address] 8049 16 Jan, 2015 [facility] [address] [id number], [place] [address] 13 Jan, 2015 [facility] [address] [id number] [place] [address] 377[address] Jan, [facility] [address] [id number] [place] [address] 8416 11 Jan, 2015 [facility] [address] [id number], [place] [address] Jan, [facility] [place] [facility] [address] [id number] [place] [address] 8038 Jan, [facility] [place] [facility] [address] [id number] [place] [address] 5104 Jan, [facility] [place] [facility] [address] [id number] [place] [address]- 0374 Jan, [facility] [place] [facility] [address] [id number] [place] [address] 9887 Jan, [facility] [place] [facility] [address] [id number] [place] [address] 4202 Jan, [facility] [place] [facility] [address] [id number] [place] [address] 0770 Jan, 2014 [facility] [place] [facility] [address] [id number] [place] [address]- 2230 Jan, [facility] [place] [facility] [address] [id number] [place] [address] 8940 Jan, 2014 [facility] [place] [facility] [address] [id number] [place] [address]- 1301 Jan, [facility] [place] [facility] [address] [id number] [place] [address]- 4582 Jan, [facility] [place] [facility] [address] [id number] [place] [address]- 5161 Jan, [facility] [place] [facility] [address] [id number] [place] [address]- 8615 Jan, [facility] [place] [facility] [address] [id number] [place] [address]- 9415 Dec, [facility] [place] [facility] [address] [id number] [place] [address]- 6145 Dec, [facility] [place] [facility] [address] [id number] [place] [address]- 8655 Dec, [facility] [place] [facility] [address] [id number] [place] [address]- 1833 Dec, [facility] [place] [facility] [address] [id number] [place] [address]- 2420 Nov, [facility] [place] [facility] [address] [id number] [place] [address]- 8882 Nov, [facility] [place] [facility] [address] [id number] [place] [address]- 1594 Nov, [facility] [place] [facility] [address] [id number] [place] [address]- 3884 Nov, [facility] [place] [facility] [address] [id number] [place] [address]- 5533 Nov, [facility] [place] [facility] [address] [id number] [place] [address]- 2225 Nov, [facility] [place] [facility] [address] [id number] [place] [address]- 4460 Nov, [facility] [place] [facility] [address] [id number] [place] [address]- 9113 Oct, [facility] [place] [facility] [address] [id number] [place] [address]- 5571 Oct, [facility] [place] [facility] [address] [id number] [place] [address]- 9998 Oct, [facility] [place] [facility] [address] [id number] [place] [address]- 9060 Oct, [facility] [place] [facility] [address] [id number] [place] [address]- 6710 Oct, [facility] [place] [facility] [address] [id number] [place] [address]- 8078 Oct, [facility] [place] [facility] [address] [id number] [place] [address]- 8188 Oct, [facility] [place] [facility] [address] [id number] [place] [address]- 0523 Oct, [facility] [place] [facility] [address] [id number] [place] [address]- 4009 Oct, [facility] [place] [facility] [address] [id number] [place] [address]- 2723 Oct, [facility] [place] [facility] [address] [id number] [place] [address]- 0418 Oct, [facility] [place] [facility] [address] [id number] [place] [address]- 6966 Oct, [facility] [place] [facility] [address] [id number] [place] [address]- 8904 Sep, [facility] [place] [facility] [address] [id number] [place] [address]- 9364 Sep, [facility] [place] [facility] [address] [id number] [place] [address]- 6659 Sep, [facility] [place] [facility] [address] [id number] [place] [address]- 6399 Sep, [facility] [place] [facility] [address] [id number] [place] [address]- 8747 Jul, [facility] [place] [facility] [address] [id number] [place] [address]- 7758 Jul, [facility] [place] [facility] [address] [id number] [place] [address]- 0286 Jul, [facility] [place] [facility] [address] [id number] [place] [address]- 6101 Jul, [facility] [place] [facility] [address] [id number] [place] [address]- 4865 Jun, [facility] [place] [facility] [address] [id number] [place] [address]- 4114 Jun, [facility] [place] [facility] [address] [id number] [place] [address]- 8259 Jun, [facility] [place] [facility] [address] [id number] [place] [address]- 7756 Jun, [facility] [place] [facility] [address] [id number] [place] [address] May, [facility] [place] [facility] [address] [id number] [place] [address]- 3103 May, [facility] [place] [facility] [address] [id number] [place] [address] 4719 April, [facility] [place] [facility] [address] [id number] [place] [address]- 4111 April, [facility] [place] [facility] [address] [id number] [place] [address]- 9138 April, [facility] [place] [facility] [address] [id number] [place] [address]- 0297 April, [facility] [place] [facility] [address] [id number] [place] [address]- 9495 April, [facility] [place] [facility] [address] [id number] [place] [address]- 0062 April, [facility] [place] [facility] [address] [id number] [place] [address]- 7817 April, [facility] [place] [facility] [address] [id number] [place] [address]- 2669 April, [facility] [place] [facility] [address] [id number] [place] [address]- 0192 April, [facility] [place] [facility] [address] [id number] [place] [address]- 4354 Mar, [facility] [place] [facility] [address] [id number] [place] [address]- 5870 Mar, [facility] [place] [facility] [address] [id number] [place] [address]- 0808 Mar, [facility] [place] [facility] [address] [id number] [place] [address]- 2713 Mar, [facility] [place] [facility] [address] [id number] [place] [address] 1949 Jan, [facility] [address] [id number] [place] [address]- 7120 Jan, [facility] [place] [facility] [address] [id number] [place] [address]- 5346 Jan, [facility] [place] [facility] [address] [id number] [place] [address]- 4586 Jan, [facility] [place] [facility] [address] [id number] [place] [address]- 8020 Jan, [facility] [place] [facility] [address] [id number] [place] [address]- 8069 Jan, [facility] [place] [facility] [address] [id number] [place] [address]- 9482 Jan, [facility] [place] [facility] [address] [id number] [place] [address]- 9929 Jan, [facility] [place] [facility] [address] [id number] [place] [address]- 1025 Jan, [facility] [place] [facility] [address] [id number] [place] [address]- 5715 Jan, [facility] [place] [facility] [address] [id number] [place] [address]- 7640 Jan, [facility] [place] [facility] [address] [id number] [place] [address]- 3620 Jan, [facility] [place] [facility] [address] [id number] [place] [address]- 9073 Dec, [facility] [place] [facility] [address] [id number] [place] [address]- 2736 Dec, [facility] [place] [facility] [address] [id number] [place] [address]- 0316 Dec, [facility] [place] [facility] [address] [id number] [place] [address]- 5743 Dec, [facility] [place] [facility] [address] [id number] [place] [address]- 1029 Nov, [facility] [place] [facility] [address] [id number] [place] [address]- 5121 Nov, [facility] [place] [facility] [address] [id number] [place] 1347 Nov, [facility] [place] [facility] [address] [id number] [place] [address]- 6531 Nov, [facility] [place] [facility] [address] [id number] [place] 1598 Oct, [facility] [place] [facility] [address] [id number] [place] [address]- 3902 Oct, [facility] [place] [facility] [address] [id number] [place] [address]- 7589 Sep, [facility] [place] [facility] [address] [id number] [place] [address]- 1483 Sep, [facility] [place] [facility] [address] [id number] [place] [address]- 3244 Jul, [facility] [place] [facility] [address] [id number] [place] [address]- 9274 Jul, [facility] [place] [facility] [address] [id number], [place] [address]- 9181 Jun, [facility] [place] [facility] [address] [id number], [place] [address]- 5277 Jun, [facility] [place] [facility] [address] [id number] [place] [address]- 8613 Jun, [facility] [place] [facility] [address] [id number], [place] [address]- 1033 May, [facility] [place] [facility] [address] [id number] [place] [address]- 2180 May, [facility] [place] [facility] [address] [id number] [place] [address]- 7819 17 May, 2013 [facility] [address] [id number] [place] [address]- 4618 May, [facility] [address] [id number] [place] [address]- 7030 May, [facility] [address] [id number] [place] [address]- 8888 April, [facility] [address] [id number] [place] [address]- 9470 April, [facility] [address] [id number] [place] [address]- 9441 April, [facility] [address] [id number] [place] [address]- 2136 April, [facility] [address] [id number] [place] [address]- 5414 April, [facility] [address] [id number] [place] [address]- 0568 April, [facility] [address] [id number] [place] [address]- 3429 Mar, [facility] [address] [id number] [place] [address]- 7282 Mar, [facility] [address] [id number] [place] [address]- 1547 Jan, [facility] [place] [facility] [address] [id number] [place] [address]- 3239 Jan, [facility] [place] [facility] [address] [id number] [place] [address]- 7929 Jan, [facility] [place] [facility] [address] [id number] [place] [address]- 0821 Jan, [facility] [address] [id number] [place] [address]- 9342 Jan, [facility] [place] [facility] [address] [id number] [place] [address]- 5833 Jan, [facility] [place] [facility] [address] [id number] [place] [address]- 1316 Jan, [facility] [address] [id number] [place] [address] 2546 Jan, [facility] [place] [facility] [address] [id number] [place] [address] 2546 Jan, [facility] [address] [id number] [place] [address]- 5476 Jan, [facility] [address] [id number] [place] [address]- 3525 Jan, [facility] [address] [id number] [place] [address]- 4671 Dec, [facility] [address] [id number] [place] [address]- 5325 Nov, [facility] [address] [id number] [place] [address] 2544 Nov, [facility] [address] [id number] [place] [address] 2544 Nov, [facility] [address] [id number] [place] [address] 2541 Nov, [facility] [place] [facility] [address] [id number] [place] [address] 2546 Nov, [facility] [place] [facility] [address] [id number] [place] [address] 2546 Nov, [facility] [place] [facility] [address] [id number] [place] [address] 2546 Nov, [facility] [place] [facility] [address] [id number] [place] [address] 2546 Nov, [facility] [place] [facility] [address] [id number] [place] [address]- 2718 19 Nov, 2012 [facility] [place] [facility] [address] [id number] [place] [address]- 7988 18 Nov, 2012 [facility] [place] [facility] [address] [facility] [id number] [place] 1286 18 Nov, 2012 [facility] [place] [facility] [address] [facility] [id number] [place] [address]- 6206 Nov, [facility] [place] [facility] [address] [id number] [place] [address]- 7355 Nov, [facility] [place] [facility] [address] [id number] [place] [address]- 0263 Oct, [facility] [place] [facility] [address] [facility] [id number] [place] [address]- 6469 Oct, [facility] [place] [facility] [address] [id number] [place] [address]- 1037 Oct, [facility] [place] [facility] [address] [id number] [place] [address]- 2577 Sep, [facility] [place] [facility] [address] [id number] [place] [address]- 7071 Sep, [facility] [place] [facility] [address] [facility] [id number] [place] [address]- 6804 Sep, [facility] [place] [facility] [address] [facility] [id number] [place] [address]- 7928 Sep, [facility] [place] [facility] [address] [facility] [id number], [place] [address]- 5426 27 Aug, 2012 [facility] [place] [facility] [address] [id number] [place] [address]- 9752 20 Aug, 2012 [facility] [place] [facility] [address] [facility] [id number] [place] [address]- 8868 24 Jul, 2012 [facility] [place] [facility] [address] [facility] [id number], [place] [address]- 9857 May, [facility] [place] [facility] [address] [id number] [place] [address]- 2555 May, [facility] [place] [facility] [address] [id number] [place] [address]- 8824 May, [facility] [place] [facility] [address] [id number] [place] [address]- 8366 April, [facility] [place] [facility] [address] [id number] [place] [address]- 7024 Mar, [facility] [place] [facility] [address] [id number] [place] [address]- 8687 Mar, [facility] [place] [facility] [address] [id number] [place] [address]- 0024 Mar, [facility] [place] [facility] [address] [id number] [place] [address]- 1456 Jan, [facility] [place] [facility] [address] [id number] [place] [address]- 0944 Jan, [facility] [place] [facility] [address] [id number] [place] [address]- 6901 Jan, [facility] [place] [facility] [address] [id number] [place] [address]- 6333 Dec, [facility] [place] [facility] [address] [id number] [place] [address]- 1586 Dec, [facility] [place] [facility] [address] [id number] [place] [address]- 9171 Dec, [facility] [place] [facility] [address] [id number] [place] [address]- 8154 Dec, [facility] [place] [facility] [address] [id number] [place] [address]- 7468 Nov, [facility] [place] [facility] [address] [id number] [place] [address]- 9139 Nov, [facility] [place] [facility] [address] [id number] [place] [address]- 8630 03 Nov, 2011 [facility] [place] [facility] [address] [id number] [place] [address]- 7717 03 Oct, 2011 [facility] [place] [facility] [address] [id number] [place] [address]- 3314 31 Sep, 2011 [facility] [place] [facility] [address] [id number] [place] 0416 26 Sep, 2011 [facility] [place] [facility] [address] [id number] [place] [address]- 2293 13 Sep, 2011 [facility] [place] [facility] [address] [id number] [place] [address]- 1998 15 Nov, 2010 [facility] [place] [facility] [address] [id number] [place] [address]- 6867 23 Oct, 2010 [facility] [place] [facility] [address] [id number] [place] [address]- 4455 Oct, [facility] [place] [facility] [address] [id number] [place] [address]- 8843 18 Oct, 2010 [facility] [place] [facility] [address] [id number] [place] [address]- 6615 16 Oct, 2010 [facility] [place] [facility] [address] [id number] [place] [address]- 2914 Sep, [facility] [place] [facility] [address] [id number], [place] [address]- 0630 April, [facility] [place] [facility] [address] [id number], [place] [address]- 7916 29 Nov, 2009 [facility] [place] [facility] [address] [id number] [place] [address]- 9533 24 Nov, 2009 [facility] [place] [facility] [address] [facility] [id number] [place] 7218 22 Nov, 2009 [facility] [place] [facility] [address] [id number] [place] [address]- 2332 Nov, [facility] [place] [facility] [address] [facility] [id number][place]33[place]- 6715 Nov, [facility] [address] [facility] [id number][place]- 6091 Oct, [facility] [address] [facility] [id number], [place] [address]- 2336 Oct, [place] [address] [facility] [id number][place] 7387 Sep, [place] [address] [facility] [id number][place] 3517 Jan, IMMUNIZATIONS No Known Immunizations SOCIAL HISTORY Never Assessed REASON FOR VISIT medication reconciliation PLAN OF CARE VITAL SIGNS MEDICATIONS Medication Instructions Dosage Frequency Start Date End Date Duration Status Folic Acid 1 MG Orally Once a day at bedime 1 tablet Active Rivastigmine 4.6 MG/24HR APPLY ONE PATCH EXTERNALLY ONCE DAILY 30 Active Pravastatin Sodium 20 MG TAKE 1 TABLET BY MOUTH EVERY NIGHT AT BEDTIME 30 Active Aspir-81 81 MG Orally Once a day 1 tablet 24h Nov, Active Milk of Magnesia 7.75 % Orally once daily 30 ml as needed 24h Active Duloxetine HCl 30 MG Orally Once a day 1 capsule 24h 30 day(s) Active Risperidone 1 MG Orally Once a day 1 tablet 24h 30 day(s) Active Zantac 150 mg Orally twice a day 1 tablet Jun, 30 day(s) Active Mirtazapine 15 MG TAKE 1 TABLET BY MOUTH EVERY NIGHT AT BEDTIME 30 Active Tylenol 325 MG Orally every 4 hrs 2 capsules as needed 4h Active Melatonin 3 MG Orally Once a day 1 tablet at bedtime as needed with food 24h 30 day(s) Active Vitamin D-3 1000 UNIT Orally Once a day at bedtime 2 capsules Active Isopto Tears 0.5 % Ophthalmic every 6 hours as needed for PRN- dry eyes 1 drop in both eyes Active Gabapentin 100 mg Orally 2 times a day 1 capsule Jun, Not-Taking Desoximetasone 0.25 % Externally Twice a day 1 application to affected area 12h Active RESULTS No Results PROCEDURES No Known [...] History Intertrechanteric hip fx 04/27/16 Hospitalization History [facility] (inpatient [facility] times) Hx of 3 inpatient psych treatments in past in [place] oct 2016 [facility] 2016
[2019-02-11 14:12] LABS: RBC,URINE RARE /HPF; SQUAMOUS EPITHELIAL CELL,UR RARE /HPF
--- OUTSIDE RECORDS SUMMARY | 2019-02-11 14:12 | XMS REPORT ---
Author Author WOLF AGUIRRE [facility] Address [address] [place] [address] Care Team Providers Care Well Driller Name Role Phone WOLF AGUIRRE Unavailable PROBLEMS Type Condition ICD9-CM Code DEL51-VR Code Onset Dates Condition Status SNOMED Code Problem Sundowning F05 Active 482613476 Problem Constipation, unspecified constipation type K59.00 Active 67242274 Problem Reactive depression F32.9 Active 16571130 Problem Vascular dementia with behavior disturbance F01.51 Active 086370857051389 Problem Insomnia, unspecified type G47.00 Active 663515379 Problem Generalized anxiety disorder F41.1 Active 39401950 Problem Other chronic pain G89.29 Active 05693009 Problem Severe episode of recurrent major depressive disorder, without psychotic features F33.2 Active 48034401 Problem Slow transit constipation K59.01 Active 68448230 Problem 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 Active 639058692 Problem Obsessive thinking F42.8 Active 61514918 Problem Failure to thrive in adult R62.7 Active 221987124 Problem Dysthymic disorder F34.1 Active 21052775 Problem Hypertension I10 Active 86471591 Problem Mood disorder F39 Active 41355945 Problem Irritable bowel syndrome with diarrhea K58.0 Active 826941695 Problem Oropharyngeal dysphagia R13.12 Active 09683579 Problem 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 Active 79735832 Problem Other chronic pain G89.29 Active 96172518 Problem Primary insomnia F51.01 Active 8645169 Problem Poor appetite R63.0 Active 95256378 Problem Atherosclerotic heart disease of [place] 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 Active 341190854147808 Problem Iron deficiency anemia secondary to inadequate dietary iron intake D50.8 Active 357198055 Problem Coarse tremors G25.2 Active 47021311 Problem Gastroesophageal reflux disease without esophagitis K21.9 Active 001035209 Problem Essential hypertension I10 Active 98852289 ALLERGIES Substance Reaction Event Type Date Status Morphine Sulfate Unknown Drug Allergy Oct, Active Clindamycin HCl Unknown Drug Allergy Oct, Active ENCOUNTERS Encounter Location Date Diagnosis [facility] [address] [id number] Oct, Generalized anxiety disorder F41.1 and Obsessive thinking F42.8 [facility] [address], [place] [address] Sep, [facility] [id number] [place] [address] 12762- 3182 Sep, [facility] [id number] [place] [address] 83882- 3423 Sep, [facility] [id number] [place] [address] 82535- 5417 Sep, [facility] [address] [id number] Sep, Generalized anxiety disorder F41.1 ; Obsessive thinking F42.8 and Mood disorder F39 [facility] [id number] [place] [address] 39197- 2554 Sep, [facility] [id number] [place] [address] 83706- 2608 Sep, [facility] [address] [place] [id number] Sep, [facility] [address] [place] [address] 33848- 2229 Sep, [facility] [address] [place] [address] 50343- 0557 Sep, [facility] [address] [place] [id number] Sep, Obsessive thinking F42.8 [facility] [address], [place] [address] 7171 Sep, [facility] [address] [place] [address] 73872- 3862 Sep, [facility] [address], [place] [address] 3013 Aug, [facility] [address] [place] [address] 62355- 9902 Aug, [facility] [address] [place] [address] 56918- 5137 Aug, Positive urine drug [facility]82.5 [facility] [address] [place] [id number] Aug, [facility] [address] [place] [address] 61770- 3144 Aug, [facility] [id number] [place] [address] 41748- 2311 Aug, [facility] [id number] [place] [address] 15949- 2126 Aug, Irritable bowel syndrome with diarrhea K58.0 [facility] [address] [place] [address] 34943- 3539 Aug, [facility] [address] [place] [address] 97086- 2370 Aug, Obsessive thinking F42.8 ; Insomnia, unspecified type G47.00 and Other chronic pain G89.29 [facility] [address] [place] [id number] Aug, Obsessive thinking F42.8 ; Irritable bowel syndrome with diarrhea K58.0 ; Pain in right foot M79.671 ; Pain of left foot M79.672 and Gastroesophageal reflux disease without esophagitis K21.9 [facility] [address], [place] [address] 6712 Aug, [facility] [address] [place] [address] 95766- 9082 Jul, [facility] [address] [place] [address] 61470- 6893 Jun, [facility] [id number] [place] [address] 49087- 9138 Jun, [facility] [address] [place] [id number] Jun, Left lower quadrant pain R10.32 and Left leg pain M79.605 [facility] [id number] [place] [address] 75529- 3011 Jun, [facility] [address] [place] [id number] Jun, Pain in left hip M25.552 ; Pain in right hip M25.551 and Primary insomnia F51.01 [facility] [id number] [place] [address] 39798- 5482 Jun, [facility] [address] [place] [id number] May, [facility] [id number] [place] [address] 47192- 2690 May, [facility] [id number] [place] [address] 95827- 3121 May, [facility] [address] [place] [id number] May, Mood disorder F39 [facility] [id number] [place] [address] 56167- 3340 May, [facility] [id number] [place] [address] 65466- 5019 April, [facility] [address] [place] [id number] April, Generalized anxiety disorder F41.1 ; Obsessive thinking F42.8 and Insomnia , unspecified type G47.00 [facility] [id number] [place] [address] 45590- 2698 April, [facility] [id number] [place] [address] 60701- 9742 April, Rash of face R21 [facility] [id number] [address] 1194 Mar, [facility] [id number] [place] [address] 13549- 8881 Mar, [facility] [address] [place] [address] 75656- 8986 Mar, [facility] [address] [place] [address] 37299- 3124 Jan, [facility] [id number] [place] [address] 73648- 1960 Jan, [facility] [address] [place] [id number] Jan, Constipation, unspecified constipation type K59.00 and Other chronic pain G89.29 [facility] [id number] [place] [address] 55908- 8329 Jan, [facility] [address] [place] [id number] Jan, Obsessive thinking F42.8 and Coarse tremors G25.2 [facility] [id number] [place] [id number] Jan, [facility] [id number] [place] [address] [id number] Jan, [facility] [address] [place] [id number] Jan, Generalized anxiety disorder F41.1 ; Obsessive thinking F42.8 ; Callus of foot L84 and 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 [facility] [address], [place] [address] 7924 Dec, Generalized anxiety disorder F41.1 and Severe episode of recurrent major depressive disorder, without psychotic features F33.2 [facility] [address] [place] [address] 65512- 4593 Nov, [facility] [id number] [place] [address] 34341- 3258 Nov, [facility] [address] [place] [id number] Nov, Oropharyngeal dysphagia R13.12 ; Generalized anxiety disorder F41.1 and 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 [facility] [address], [place] [address]- 6914 Nov, [facility] [id number] [id number] Nov, [facility] [address] [address] 8389 Nov, [facility] [address] [address] 34[address] Nov, [facility] [address], [place] [address]- 3728 Oct, Constipation, unspecified constipation type K59.00 and Mood disorder F39 [facility] [address], [place] [address]- 3556 Oct, [facility] [address] [id number] Sep, [facility] [id number] [place] [id number] Sep, [facility] [id number] [id number] Sep, [facility] [address] [id number] Sep, [facility] [address] [place] [id number] Sep, Generalized abdominal pain R10.84 [facility] [address], [place] [address] 2546 Sep, [facility] [id number] [id number] Sep, Generalized anxiety disorder F41.1 and Primary insomnia F51.01 [facility] [address] [id number] Aug, [facility] [id number] [id number] Aug, Generalized anxiety disorder F41.1 [facility] [address], [place] [address]- 1086 Jul, [facility] [address] [place] [id number] Jul, Obsessive thinking F42.8 [facility] [address], [place] [address]- 0195 Jul, Generalized anxiety disorder F41.1 and Irritable bowel syndrome with diarrhea K58.0 [facility] [id number] [id number] Jul, Generalized anxiety disorder F41.1 [facility] [id number] [address] Jun, Generalized anxiety disorder F41.1 [facility] [id number] [address]- 5910 May, [facility] [address] [id number] May, Generalized anxiety disorder F41.1 ; Irritable bowel syndrome with diarrhea K58.0 and Coarse tremors G25.2 [facility] [id number], [place] [address]- 6816 April, [facility] [id number], [place] [address]- 5681 April, [facility] [id number] [address]- 6914 April, [facility] [address] [address] 3861 Mar, [facility] [address] [place] [id number] Mar, Severe episode of recurrent major depressive disorder, without psychotic features F33.2 and Pain in left hip M25.552 [facility] [address] [place] [address] 44902- 8492 Mar, [facility] [id number] [place] [address] 22986- 5641 Mar, [facility] [id number] [place] [address] 53965- 1739 Mar, [facility] [id number] [place] [address] 15265- 1689 Mar, Pain in right hip M25.551 and Self-care deficit in patient living alone R46.89 [facility] [id number] [place] [address] 71399 -3991 Jan, Other chronic pain G89.29 ; Pain in left hip M25.552 and Slow transit constipation K59.01 [facility] [id number] [place] [address] 57335- 1581 Jan, [facility] [id number] [place] [address] 25282- 0683 Dec, Other depression F32.89 ; Constipation, unspecified constipation type K59.00 and Insomnia, unspecified type G47.00 [facility] [address] [place] [address] 54853- 8780 Nov, Reactive depression F32.9 ; Chronic idiopathic constipation K59.04 ; Generalized anxiety disorder F41.1 ; Coarse tremors G25.2 ; Gastroesophageal reflux disease without esophagitis K21.9 ; Dysthymic disorder F34.1 ; Vitamin deficiency, unspecified E56.9 and Primary insomnia F51.01 [facility] [id number] [place] [address] 69479- 7152 Nov, [facility] [id number] [place] [address] 79315- 1767 Nov, [facility] [id number] [place] [address] 72332- 1152 Nov, [facility] [id number] [place] [address] 90759- 2549 Nov, Reactive depression F32.9 ; Essential hypertension I10 ; Generalized anxiety disorder F41.1 ; Atherosclerotic heart disease of [place] 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 ; Pain in right hip M25.551 ; Other chronic pain G89.29 ; Chronic idiopathic constipation K59.04 ; Primary insomnia F51.01 ; Coarse tremors G25.2 ; Gastroesophageal reflux disease without esophagitis K21.9 ; Iron deficiency anemia secondary to inadequate dietary iron intake D50.8 and Vitamin deficiency, unspecified E56.9 [facility] [facility] [address] 54749- 4383 Oct, [facility] [address] 31563- 9834 Oct, [facility] [address] 66035- 1529 Oct, [facility] [address] 08368- 4804 Oct, Generalized anxiety disorder F41.1 ; Poor appetite R63.0 ; Dehydration E86.0 and Failure to thrive in adult R62.7 [facility] [id number] [place] [address] 02392- 4688 Oct, Generalized anxiety disorder F41.1 and Failure to thrive in adult R62.7 [facility] [id number] [place] [address] 62716- 0733 Oct, [facility] [address] 02470- 7310 Oct, [facility] [address] 25290 -6455 Sep, Vaginal discharge N89.8 and Acute cystitis with hematuria N30.01 [facility] [address] 52037- 6821 Sep, [facility] [address] [place] [address] 08396- 3670 Sep, [facility] [id number] [place] [address] 57156- 8641 Sep, Dysthymic disorder F34.1 ; Acute vaginitis N76.0 ; Dysuria R30.0 and Vaginal yeast infection B37.3 [facility] [facility] [id number] [place] [address] 45784- 5861 Aug, [facility] [id number] [place] [address] 40939- 9022 Aug, [facility] [id number] [place] [address] 61464 -2596 Aug, Foul smelling urine R82.90 ; Rapid heart rate R00.0 and Flatulence R14.3 [place] [id number] [place] [address] 36131- 0034 Aug, [facility] [id number] [place] [address] 35677- 3836 Jul, Constipation, unspecified constipation type K59.00 ; Weak R53.1 ; Poor appetite R63.0 ; Coronary artery disease involving [place] heart without angina pectoris, unspecified vessel or lesion type I25.10 ; Fatigue, unspecified type R53.83 ; Urinary incontinence, unspecified type R32 and Insomnia, unspecified type G47.00 [facility] [facility] [address] [place] [address] 81369- 3126 Jul, [facility] [id number] [place] [address] 41527- 3217 Jun, Dysuria R30.0 [facility] [facility] [id number] [place] [address] 29341- 9977 Jun, [facility] [id number] [place] [address] 13977- 2072 Jun, Urinary tract infection, site not specified N39.0 ; Acute vaginitis N76.0 and Diarrhea, unspecified type R19.7 [facility] [address], [place] [address]- 5589 May, [facility] [id number] [place] [address] 56984- 8123 April, [facility] [id number] [place] [address] [id number] April, Encounter for dental examination Z01.20 [facility] [address] 23104- 8788 April, [facility] [address] 13942- 5267 April, Tremor R25.1 and Episodic tension-type headache, not intractable G44.219 [facility] [id number] [place] [address] 76615- 2502 Mar, [facility] [id number] [place] [address] 16140- 4777 Jan, Mood disorder F39 [facility] [id number] [place] [address] 27379 -6477 Jan, [facility] [id number] [place] [address] 14805- 2320 Jan, [facility] [address] [place] [address] 28701- 3954 Jan, [facility] [id number] [place] [address] 79642- 9380 Jan, [facility] [id number] [place] [address] 42060- 5409 Jan, [facility] [id number] [place] [address] 69518- 9783 Jan, [facility] [id number] [place] [address] 61871 -6113 Dec, Acute diarrhea R19.7 [facility] [address] [place] [address] 32403- 6329 Dec, [facility] [id number] [place] [address] 47795- 6601 Dec, [facility] [id number] [place] [address] 38663- 7914 Dec, [facility] [id number] [place] [address] 14209 -8299 Dec, N&V (nausea and vomiting) R11.2 [facility] [id number] [place] [address] 44185- 5200 Dec, Generalized anxiety disorder F41.1 [facility] [id number] [place] [address] 64875- 5204 Dec, Generalized anxiety disorder F41.1 [facility] [id number] [place] [address] 94475- 6489 Nov, Post concussion syndrome F07.81 [facility] [id number] [place] [address] 20024- 3997 Nov, Generalized anxiety disorder F41.1 [facility] [id number] [place] [address] 17594- 4878 Nov, [facility] [id number] [place] [address] 01709- 6478 Nov, Generalized anxiety disorder F41.1 [facility] [id number] [place] [address] [id number] Oct, Dental caries K02.9 [facility] [id number] [place] [address] 78580- 3800 Oct, [facility] [id number] [place] [address] [id number] Oct, Dental examination Z01.20 [facility] [id number] [place] [address] [id number] Oct, Encounter for dental examination Z01.20 [facility] [address] 67620- 6118 Oct, CAD (coronary artery disease) I25.10 [facility] [address] 52051- 6762 Sep, Generalized anxiety disorder F41.1 [facility] [address] 66805- 0557 Sep, [facility] [address] 00744- 9484 Sep, Rash and other nonspecific skin eruption R21 and Yeast vaginitis B37.3 [place] [address] 43364- 5340 Sep, Generalized anxiety disorder F41.1 [place] [facility] [address] 96477- 0177 Aug, Insect bites 919.4 and Hemorrhoids 455.6 [facility] [address] 70279- 3746 Aug, Generalized anxiety disorder 300.02 [place] [address] 06701- 0733 Aug, [facility] [address] 44332- 6975 Aug, [facility] [address] 92257- 9149 Aug, Generalized anxiety disorder 300.02 ; No condition on [place] II V71.09 ; Heart problem 429.9 and Hypertension 401.9 [facility] [address] 65945- 8477 Aug, [facility] [address] 28176- 7792 Jul, [facility] [address] 81359- 8252 Jul, [facility] [address], [place] [address]- 5404 Jul, [facility] [address]- 5501 Jul, [facility] [address] [place] [address] 14362- 7778 Jul, Rash 782.1 [facility] [id number] [place] [address] 310597- 6219 Jul, UTI (urinary tract infection) 599.0 [facility] [id number] [place] [address] 440096- 9555 Jul, [facility] [address] [place] [address] 66536- 7921 Jun, Dysthymia 300.4 and Anxiety 300.00 [facility] [address] [address]- 3693 Jun, 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 [facility] [address] [place] [address] 56435- 4549 May, [facility] [address] [place] [address] 13785- 9656 May, [facility] [address], [place] [address]- 2678 May, Unspecified breast screening V76.10 [facility] [address] [place] [address] [id number] May, Dental examination V72.2 [facility] [address] [place] [address] 34900- 2216 April, [facility] [address]- 5083 April, [facility] [id number] [place] [id number] April, [facility] V72.2 [facility] [address] [id number] [place] [id number] April, Dental examination V72.2 [facility] [address] [id number] [place] [address] 14 Mar, 2015 [facility] [place] [facility] [address] [id number] [place] [address] Mar, [facility] [place] [facility] [address] [id number] [place] [address] 25 Jan, 2015 [facility] [place] [facility] [address] [id number] [place] [address] 25 Jan, 2015 [facility] [place] [facility] [address] [id number] [place] [address] 18 Jan, 2015 [facility] [address] [id number] [place] [address] 18 Jan, 2015 [facility] [place] [facility] [address] [id number] [place] [address] 16 Jan, 2015 [facility] [place] [facility] [address] [id number] [place] [address] 16 Jan, 2015 [facility] [place] [facility] [address] [id number] [place] [address] Jan, [facility] [place] [facility] [address] [id number], [place] [address] Jan, [facility] [place] [facility] [address] [id number], [place] [address] 11 Jan, 2015 [facility] [place] [facility] [address] [id number], [place] [address] 11 Jan, 2015 [facility] [place] [facility] [address] [id number] [address] 11 Jan, 2015 [facility] [place] [facility] [address] [id number] [place] 11 Jan, 2015 [facility] [place] [facility] [address] [id number] [place], [place] [address] Jan, [facility] [place] [facility] [address] [id number] [place] [address] Jan, [facility] [place] [facility] [address] [id number] [place] [address] 8471 Jan, 2014 [facility] [place] [facility] [address] [id number] [place] [address] 5027 Jan, 2014 [facility] [place] [facility] [address] [id number] [place] [address] 3291 Jan, 2014 [facility] [place] [facility] [address] [id number] [place] [address]- 1266 Jan, 2014 [facility] [place] [facility] [address] [id number] [place] [address] 8[address] Jan, [facility] [place] [facility] [address] [id number] [place] [address] 96[address] Jan, [facility] [place] [facility] [address] [id number] [place] [address] 6268 Jan, [facility] [place] [facility] [address] [facility] [id number] [place] [address]- 3266 Jan, [facility] [place] [facility] [address] [facility] [id number] [place] [address] 9320 Dec, [facility] [place] [facility] [address] [id number] [place] [address] 2000 Dec, [facility] [place] [facility] [address] [id number] [place] [address]- 6356 Dec, [facility] [place] [facility] [address] [id number] [place] [address]- 4242 Dec, [facility] [place] [facility] [address] [id number] [place] [address]- 2392 Nov, [facility] [place] [facility] [address] [id number] [place] [address]- 2570 Nov, [facility] [place] [facility] [address] [id number] [place] [address]- 7388 Nov, [facility] [place] [facility] [address] [id number] [place] [address]- 6899 Nov, [facility] [place] [facility] [address] [id number] [place] [address]- 0541 Nov, [facility] [place] [facility] [address] [id number] [place] [address]- 8379 Nov, [facility] [place] [facility] [address] [id number] [place] [address]- 4270 Nov, [facility] [place] [facility] [address] [id number] [place] [address]- 8568 Oct, [facility] [place] [facility] [address] [id number] [place] [address]- 4541 Oct, [facility] [place] [facility] [address] [id number] [place] [address]- 0775 Oct, [facility] [place] [facility] [address] [id number] [place] [address]- 0497 Oct, [facility] [place] [facility] [address] [id number] [place] [address]- 2005 Oct, [facility] [place] [facility] [address] [id number], [place] [address] Oct, [facility] [place] [facility] [address] [id number], [place] [address]- [address] Oct, [facility] [place] [facility] [address] [id number] [place] [address]- 8821 Oct, [facility] [place] [facility] [address] [id number] [place] [address]- 7683 Oct, [facility] [place] [facility] [address] [id number] [place] [address]- 9247 Oct, [facility] [place] [facility] [address] [id number] [place] [address]- 9088 Oct, [facility] [place] [facility] [address] [id number] [place] [address]- 5397 Oct, [facility] [place] [facility] [address] [id number] [place] [address]- 1965 Sep, [facility] [place] [facility] [address] [id number] [place] [address]- 2047 Sep, [facility] [place] [facility] [address] [id number] [place] [address]- 8360 Sep, [facility] [place] [facility] [address] [id number] [place] [address]- 2808 Sep, [facility] [place] [facility] [address] [id number] [place] [address]- 7352 Jul, [facility] [place] [facility] [address] [id number] [place] [address]- 7912 Jul, [facility] [place] [facility] [address] [id number] [place] [address]- 5618 Jul, [facility] [place] [facility] [address] [id number] [place] [address]- 0775 Jul, [facility] [place] [facility] [address] [id number] [place] [address]- 5429 Jun, [facility] [place] [facility] [address] [id number] [place] [address]- 5413 Jun, [facility] [place] [facility] [address] [id number] [place] [address]- 7699 Jun, [facility] [place] [facility] [address] [id number] [place] [address]- 9888 Jun, [facility] [place] [facility] [address] [id number] [place] [address]- 3180 May, [facility] [place] [facility] [address] [id number] [place] [address]- 8918 May, [facility] [place] [facility] [address] [id number] [place] [address]- 8559 April, [facility] [place] [facility] [address] [id number] [place] [address]- 0633 April, [facility] [place] [facility] [address] [id number] [place] [address]- 5522 April, [facility] [place] [facility] [address] [id number] [place] [address]- 1934 April, [facility] [place] [facility] [address] [id number] [place] [address]- 4722 April, [facility] [place] [facility] [address] [id number] [place] [address]- 5972 April, [facility] [place] [facility] [address] [id number] [place] [address]- 9261 April, [facility] [place] [facility] [address] [id number] [place] [address]- 2339 April, [facility] [place] [facility] [address] [id number] [place] [address]- 0682 April, [facility] [place] [facility] [address] [id number] [place] [address]- 3817 Mar, [facility] [place] [facility] [address] [id number] [place] [address]- 8784 Mar, [facility] [place] [facility] [address] [id number] [place] [address]- 2643 Mar, [facility] [place] [facility] [address] [id number] [place] [address]- 5348 Mar, [facility] [place] [facility] [address] [id number] [place] [address]- 2796 Jan, [facility] [place] [facility] [address] [id number] [place] [address]- 3590 Jan, [facility] [place] [facility] [address] [id number] [place] [address]- 1447 11 Jan, 2014 [facility] [place] [facility] [address] [id number] [place] [address]- 8556 11 Jan, 2014 [facility] [place] [facility] [address] [id number] [place] [address]- 9092 10 Jan, 2014 [facility] [place] [facility] [address] [id number] [place] [address]- 5576 10 Jan, 2014 [facility] [place] [facility] [address] [id number] [place] [address]- 1125 07 Jan, 2014 [facility] [place] [facility] [address] [id number] [place] [address]- 2654 Jan, [facility] [place] [facility] [address] [id number] [place] [address]- 9709 24 Jan, 2014 [facility] [place] [facility] [address] [id number] [place] [address]- 3262 Jan, [facility] [place] [facility] [address] [id number] [place] [address]- 0977 Jan, [facility] [place] [facility] [address] [id number] [place] [address]- 1928 Jan, [facility] [place] [facility] [address] [id number] [place] [address]- 8541 Dec, [facility] [place] [facility] [address] [id number] [place] [address]- 7540 Dec, [facility] [place] [facility] [address] [id number] [place] [address]- 4102 Dec, [facility] [place] [facility] [address] [id number] [place] [address]- 9045 Dec, [facility] [place] [facility] [address] [id number] [place] [address]- 3334 Nov, [facility] [place] [facility] [address] [id number] [place] [address]- 1675 Nov, [facility] [place] [facility] [address] [id number] [place] [address]- 6904 Nov, [facility] [place] [facility] [address] [id number] [place] [address]- 2973 Nov, [facility] [place] [facility] [address] [id number] [place] [address]- 7965 Oct, [facility] [place] [facility] [address] [id number] [place] [address]- 6619 Oct, [facility] [address] [id number] [place] [address]- 6368 Sep, [facility] [place] [facility] [address] [id number] [place] [address]- 5273 Sep, [facility] [address] [id number] [place] [address]- 1619 Jul, [facility] [address] [id number] [place] [address]- 4533 Jul, [facility] [place] [facility] [address] [id number] [place] [address]- 7004 Jun, [facility] [place] [facility] [address] [id number] [place] [address]- 3704 Jun, [facility] [place] [facility] [address] [id number] [place] [address]- 2037 Jun, [facility] [place] [facility] [address] [id number] [place] [address]- 2723 May, [facility] [place] [facility] [address] [id number] [place] [address]- 6297 May, [facility] [place] [facility] [address] [id number] [place] [address]- 1069 May, [facility] [place] [facility] [address] [id number] [place] [address]- 4527 May, [facility] [place] [facility] [address] [id number], [place] [address]- 0678 May, [facility] [address] [id number] [place] [address]- 1512 April, [facility] [address] [id number] [place] [address]- 9217 April, [facility] [address] [id number] [place] [address]- 5705 April, [facility] [address] [id number] [place] [address]- 2398 April, [facility] [address] [id number] [place] [address]- 0454 April, [facility] [address] [id number] [place] [address] April, [facility] [address] [id number] [place] [address]- 6452 Mar, [facility] [address] [id number] [place] [address]- 2751 Mar, [facility] [address] [id number] [place] [address]- 2797 Jan, [facility] [place] [facility] [address] [id number] [place] [address]- 3237 Jan, [facility] [address] [id number], [place] [address]- 4502 Jan, [facility] [place] [facility] [address] [id number] [place] [address]- 0636 Jan, [facility] [place] [facility] [address] [id number] [place] [address]- 5421 Jan, [facility] [place] [facility] [address] [id number] [place] [address]- 1081 Jan, [facility] [place] [facility] [address] [id number] [place] [address]- 9276 Jan, [facility] [place] [facility] [address] [id number] [place] [address]- 2224 04 Jan, 2012 [facility] [place] [facility] [address] [id number] [place] [address]- 5366 Jan, 2012 [facility] [place] [facility] [address] [id number] [place] [address]- 5906 Jan, 2012 [facility] [place] [facility] [address] [id number] [place] [address]- 0789 Jan, [facility] [address] [id number] [place] [address]- 5466 Dec, [facility] [address] [id number] [place] [address]- 0658 Nov, [facility] [address] [id number] [place] [address]- 7416 Nov, [facility] [address] [id number] [place] [address]- 6735 Nov, [facility] [address] [id number] [place] [address]- 0281 Nov, [facility] [address] [id number] [place] [address]- 6274 Nov, [facility] [address] [id number] [place] [address]- 8960 Nov, [facility] [place] [facility] [address] [id number] [place] [address]- 2548 Nov, [facility] [place] [facility] [address] [id number] [place] [address]- 4392 Nov, [facility] [place] [facility] [address] [id number] [place] [address]- 9475 Nov, [facility] [place] [facility] [address] [id number] [place] [address]- 6089 18 Nov, 2012 [facility] [place] [facility] [address] [id number] [place] [address]- 2546 18 Nov, 2012 [facility] [place] [facility] [address] [id number] [place] [address]- 4264 Nov, [facility] [place] [facility] [address] [id number] [place] [address]- 1866 Nov, [facility] [place] [facility] [address] [id number] [place] [address]- 2406 Oct, [facility] [place] [facility] [address] [id number] [place] [address]- 9155 Oct, [facility] [place] [facility] [address] [id number] [place] [address]- 0607 Oct, [facility] [place] [facility] [address] [id number] [place] [address]- 4541 Sep, [facility] [place] [facility] [address] [id number] [place] [address]- 7316 Sep, [facility] [place] [facility] [address] [id number] [place] [address]- 6008 Sep, [facility] [place] [facility] [address] [id number] [place] 1236 Sep, [facility] [place] [facility] [address] [id number] [place] [address]- 3914 27 Aug, 2012 [facility] [place] [facility] [address] [id number] [place] [address]- 9283 20 Aug, 2012 [facility] [place] [facility] [address] [id number] [place] [address]- 6224 24 Jul, 2012 [facility] [place] [facility] [address] [id number] [place] [address]- 9880 27 May, 2012 [facility] [place] [facility] [address] [id number] [place] [address]- 5275 14 May, 2012 [facility] [place] [facility] [address] [id number] [place] [address]- 1256 14 May, 2012 [facility] [place] [facility] [address] [id number] [place] [address]- 6257 April, [facility] [address] [id number] [place] [address]- 0258 Mar, [facility] [address] [id number] [place] [address]- 3816 Mar, [facility] [address] [id number] [place] [address]- 2013 Mar, [facility] [address] [id number] [place] [address]- 6376 Jan, [facility] [address] [id number] [place] [address]- 1441 Jan, [facility] [address] [id number] [place] [address]- 8938 Jan, [facility] [address] [id number] [place] [address]- 2930 Dec, [facility] [address] [id number] [place] [address]- 3644 Dec, [facility] [address] [id number] [place] [address]- 4187 Dec, [facility] [address] [id number] [place] [address]- 7278 Dec, [facility] [address] [id number] [place] [address]- 4525 Nov, [facility] [address] [id number] [place] [address]- 4411 Nov, [facility] [place] [facility] [address] [id number] [place] [address]- 1231 Nov, [facility] [address] [id number] [place] [address]- 2546 Oct, [facility] [address] [id number] [place] [address]120 Sep, [facility] [place] [facility] [address] [id number] [place] [address]- 9628 26 Sep, 2011 [facility] [place] [facility] [address] [id number] [place] [address]- 0083 13 Sep, 2011 [facility] [place] [facility] [address] [id number] [place] [address]- 9344 15 Nov, 2010 [facility] [place] [facility] [address] [id number] [place] [address]- 2850 23 Oct, 2010 [facility] [place] [facility] [address] [id number] [place] [address]- 3789 Oct, [facility] [place] [facility] [address] [id number] [place] [address]- 7204 18 Oct, 2010 [facility] [place] [facility] [address] [id number] [place] [address]- 2828 16 Oct, 2010 [facility] [place] [facility] [address] [id number] [place] [address]- 3435 Sep, [facility] [place] [facility] [address] [id number] [place] [address]- 6550 April, [facility] [place] [facility] [address] [id number], [place] [address]- 3080 Nov, [facility] [place] [facility] [address] [id number], [place] [address]- 0030 24 Nov, 2009 [facility] [place] [facility] [address] [id number], [place] [address]- 9285 22 Nov, 2009 [facility] [place] [facility] [address] [id number] [place] [address]- 1743 10 Nov, 2009 [facility] [place] [facility] [address] [id number], [place] [address]- 9581 10 Nov, 2009 [facility] [place] [facility] [address] [id number], [place] [address]- 8961 19 Oct, 2009 [facility] [place] [facility] [address] [id number], [place] [address]- 1566 Oct, [facility] [address] [facility] [id number], [place] [address]- 4339 Sep, [facility] [address] [facility] [id number], [place] [address]- 8838 Jan, IMMUNIZATIONS No Known Immunizations SOCIAL HISTORY Never Assessed REASON FOR VISIT Routine Visit PLAN OF CARE Activity Details Follow Up prn Reason: VITAL SIGNS MEDICATIONS Medication Instructions Dosage Frequency Start Date End Date Duration Status Mirtazapine 15 MG TAKE 1 TABLET BY MOUTH EVERY NIGHT AT BEDTIME 30 Active Folic Acid 1 MG Orally Once a day at bedime 1 tablet Active Clonazepam 0.5 MG Orally Once a day at bedtime 1 tablet at bedtime 28 days Active Rivastigmine 4.6 MG/24HR APPLY ONE PATCH EXTERNALLY ONCE DAILY 30 Active Milk of Magnesia 7.75 % Orally once daily 30 ml as needed 24h Active Tylenol 325 MG Orally every 4 hrs 2 capsules as needed 4h Active Pravastatin Sodium 20 MG TAKE 1 TABLET BY MOUTH EVERY NIGHT AT BEDTIME 30 Active Zantac 150 mg Orally twice a day 1 tablet 12h Jun, 30 day(s) Active Isopto Tears 0.5 % Ophthalmic every 6 hours as needed for PRN- dry eyes 1 drop in both eyes Active Aspir-81 81 MG Orally Once a day 1 tablet 24h Nov, Active Vitamin D-3 1000 UNIT Orally Once a day at bedtime 2 capsules Active Gabapentin 100 mg Orally 2 times a day 1 capsule 12Jun, Active RESULTS No Results PROCEDURES Procedure Date Ordered Result Body Site Stable Visit (10 minutes) Oct 02, 2018 INSTRUCTIONS MEDICATIONS ADMINISTERED No Known Medications [...] History Intertrechanteric hip fx 04/27/16 Hospitalization History [facility] (inpatient [facility] 2 times) Hx of 3 inpatient psych treatments in past in [place] oct 2016 [facility]
[2019-02-11 14:13] LABS: HYALINE CASTS, URINE RARE /LPF
--- OUTSIDE RECORDS SUMMARY | 2019-02-11 14:13 | XMS REPORT ---
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 Name Role Phone WOLF AGUIRRE Unavailable PROBLEMS Type Condition ICD9-CM Code FUB06-RK Code Onset Dates Condition Status SNOMED Code Problem Sundowning F05 Active 299453399 Problem Constipation, unspecified constipation type K59.00 Active 68303089 Problem Reactive depression F32.9 Active 07700625 Problem Vascular dementia with behavior disturbance F01.51 Active 176936141639265 Problem Insomnia, unspecified type G47.00 Active 281925342 Problem Generalized anxiety disorder F41.1 Active 50717880 Problem Other chronic pain G89.29 Active 17146896 Problem Severe episode of recurrent major depressive disorder, without psychotic features F33.2 Active 71977888 Problem Slow transit constipation K59.01 Active 45062528 Problem 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 Active 924866916 Problem Obsessive thinking F42.8 Active 92765518 Problem Failure to thrive in adult R62.7 Active 700601854 Problem Dysthymic disorder F34.1 Active 52295937 Problem Hypertension I10 Active 89189422 Problem Mood disorder F39 Active 38647705 Problem Irritable bowel syndrome with diarrhea K58.0 Active 613504287 Problem Oropharyngeal dysphagia R13.12 Active 75719423 Problem 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 Active 79404773 Problem Other chronic pain G89.29 Active 54698991 Problem Primary insomnia F51.01 Active 3424978 Problem Poor appetite R63.0 Active 69545607 Problem Atherosclerotic heart disease of [place] 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 Active 733690517968747 Problem Iron deficiency anemia secondary to inadequate dietary iron intake D50.8 Active 184369987 Problem Coarse tremors G25.2 Active 36282883 Problem Gastroesophageal reflux disease without esophagitis K21.9 Active 567490196 Problem Essential hypertension I10 Active 37991036 ALLERGIES No Information ENCOUNTERS Encounter Location Date Diagnosis [facility] [address], [place] [address] Sep, [facility] [id number] [place] [address] 30729- 4726 Sep, [facility] [address], [place] [address] 6472 Sep, [facility] [id number] [place] [address] 16699- 9664 Sep, [facility] [address] [place] [id number] Sep, Generalized anxiety disorder F41.1 ; Obsessive thinking F42.8 and Mood disorder F39 [facility] [id number] [place] [address] 50570- 7101 Sep, [facility] [id number] [place] [address] 05260- 0322 Sep, [facility] [address] [place] [id number] Sep, [facility] [id number] [place] [address] 53615- 9921 Sep, [facility] [address] [place] [address] 32066- 8167 Sep, [facility] [address] [place] [id number] Sep, Obsessive thinking F42.8 [facility] [address], [place] [address] 2167 Sep, [facility] [id number] [place] [address] 36730- 8077 Sep, [facility] [id number] [address] 3413 Aug, [facility] [address], [place] [address] 0175 Aug, [facility] [address], [place] [address] 4610 Aug, Positive urine drug screen R82.5 [facility] [address] [place] [id number] Aug, [facility] [address] [place] [address] 99155- 3152 Aug, [facility] [id number] [place] [address] 37289- 6628 Aug, [facility] [id number] [place] [address] 75682- 9796 17 Aug, 2018 Irritable bowel syndrome with diarrhea K58.0 [facility] [id number] [place] [address] 26787- 6162 Aug, [facility] [address] [place] [address] 88362- 9607 Aug, Obsessive thinking F42.8 ; Insomnia, unspecified type G47.00 and Other chronic pain G89.29 [facility] [address] [place] [id number] Aug, Obsessive thinking F42.8 ; Irritable bowel syndrome with diarrhea K58.0 ; Pain in right foot M79.671 ; Pain of left foot M79.672 and Gastroesophageal reflux disease without esophagitis K21.9 [facility] [address], [place] [address] 8727 Aug, [facility] [address], [place] [address] 2480 Jul, [facility] [id number] [place] [address] 83582- 9226 Jun, [facility] [address] [place] [address] 31209- 7321 Jun, [facility] [address] [place] [id number] Jun, Left lower quadrant pain R10.32 and Left leg pain M79.605 [facility] [address], [place] [address] 164[address] Jun, [facility] [address] [id number] Jun, Pain in left hip M25.552 ; Pain in right hip M25.551 and Primary insomnia F51.01 [facility] [id number] [place] [address] 12731- 6126 Jun, [facility] [address] [place] [id number] May, [facility] [id number] [place] [address] 83681- 3395 May, [facility] [id number] [place] [address] 29476- 9749 May, [facility] [address] [id number] May, Mood disorder F39 [facility] [id number] [place] [address] 35605- 7437 May, [facility] [id number] [place] [address] 02251- 3375 April, [facility] [address] [id number] April, Generalized anxiety disorder F41.1 ; Obsessive thinking F42.8 and Insomnia , unspecified type G47.00 [facility] [id number] [place] [address] 03190- 9921 April, [facility] [id number] [place] [address] 17868- 2201 April, Rash of face R21 [facility] [id number] [place] [address] 67457- 2399 Mar, [facility] [id number] [place] [address] 19652- 3099 Mar, [facility] [id number] [place] [address] 81180- 4252 Mar, [facility] [id number] [place] [address] 81295- 4172 Jan, [facility] [id number] [place] [address] 91851- 9198 Jan, [facility] [address] [id number] Jan, Constipation, unspecified constipation type K59.00 and Other chronic pain G89.29 [facility] [id number] [place] [address] 71236- 3205 Jan, [facility] [address] [id number] Jan, Obsessive thinking F42.8 and Coarse tremors G25.2 [place] [address] [id number] Jan, [place] [address] [id number] Jan, [facility] [address] [id number] Jan, Generalized anxiety disorder F41.1 ; Obsessive thinking F42.8 ; Callus of foot L84 and 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 [facility] [id number] [place] [address] 40237- 1617 Dec, Generalized anxiety disorder F41.1 and Severe episode of recurrent major depressive disorder, without psychotic features F33.2 [facility] [id number] [place] [address] 47790- 2081 Nov, [facility] [address] 55020- 4089 Nov, [facility] [id number] Nov, Oropharyngeal dysphagia R13.12 ; Generalized anxiety disorder F41.1 and 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 [place] [address] [place] [address]- 6036 Nov, [facility] [id number] [id number] Nov, [facility] [address] [address] 1437 Nov, [facility] [address], [place] [address]- 6631 Nov, [facility] [id number] [place] [address] 73475- 6982 Oct, Constipation, unspecified constipation type K59.00 and Mood disorder F39 [facility] [address] [place] [address] 56701- 0706 Oct, [facility] [id number] [place] [address] [id number] Sep, [facility] [id number] [place] [address] [id number] Sep, [facility] [id number] [place] [address] [id number] Sep, [facility] [id number] [place] [address] [id number] Sep, [facility] [address] [place] [id number] Sep, Generalized abdominal pain R10.84 [facility] [address], [place] [address] 2546 Sep, [facility] [id number] [id number] Sep, Generalized anxiety disorder F41.1 and Primary insomnia F51.01 [facility] [id number] [id number] Aug, [facility] [id number] [id number] Aug, Generalized anxiety disorder F41.1 [facility] [address], [place] [address]- 3680 Jul, [facility] [address] [place] [id number] Jul, Obsessive thinking F42.8 [facility] [address], [place] [address]- 0973 Jul, Generalized anxiety disorder F41.1 and Irritable bowel syndrome with diarrhea K58.0 [facility] [id number] [place] [address] [id number] Jul, Generalized anxiety disorder F41.1 [facility] [id number] [place] [address] [id number] Jun, Generalized anxiety disorder F41.1 [facility] [id number] [place] [address] 33246- 1540 May, [facility] [address] [place] [id number] May, Generalized anxiety disorder F41.1 ; Irritable bowel syndrome with diarrhea K58.0 and Coarse tremors G25.2 [facility] [address] [place] [address] 74186- 5683 April, [facility] [address] [place] [address] 57134- 5301 April, [facility] [address], [place] [address]- 1828 April, [facility] [id number] [place] [address] 01356- 5530 Mar, [facility] [address] [place] [id number] Mar, Severe episode of recurrent major depressive disorder, without psychotic features F33.2 and Pain in left hip M25.552 [facility] [address], [place] [address]- 7955 Mar, [facility] [address] [place] [address] 49343- 6130 Mar, [facility] [address] [place] [address] 59322- 8466 Mar, [facility] [id number] [place] [address] 76931- 6712 Mar, Pain in right hip M25.551 and Self-care deficit in patient living alone R46.89 [facility] [id number] [place] [address] 52176 -3216 Jan, Other chronic pain G89.29 ; Pain in left hip M25.552 and Slow transit constipation K59.01 [facility] [id number] [place] [address] 93640- 3568 Jan, [facility] [id number] [place] [address] 14088- 9484 Dec, Other depression F32.89 ; Constipation, unspecified constipation type K59.00 and Insomnia, unspecified type G47.00 [facility] [id number] [place] [address] 64207- 4963 Nov, Reactive depression F32.9 ; Chronic idiopathic constipation K59.04 ; Generalized anxiety disorder F41.1 ; Coarse tremors G25.2 ; Gastroesophageal reflux disease without esophagitis K21.9 ; Dysthymic disorder F34.1 ; Vitamin deficiency, unspecified E56.9 and Primary insomnia F51.01 [facility] [id number] [place] [address] 91144- 3978 Nov, [facility] [id number] [place] [address] 62467- 2432 Nov, [facility] [id number] [place] [address] 61543- 1546 Nov, [facility] [id number] [place] [address] 24425- 5077 Nov, Reactive depression F32.9 ; Essential hypertension I10 ; Generalized anxiety disorder F41.1 ; Atherosclerotic heart disease of [place] 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 ; Pain in right hip M25.551 ; Other chronic pain G89.29 ; Chronic idiopathic constipation K59.04 ; Primary insomnia F51.01 ; Coarse tremors G25.2 ; Gastroesophageal reflux disease without esophagitis K21.9 ; Iron deficiency anemia secondary to inadequate dietary iron intake D50.8 and Vitamin deficiency, unspecified E56.9 [facility] [id number] [place] [address] 39002- 4445 29 Oct, 2016 [facility] [id number] [place] [address] 49833- 8168 Oct, [facility] [id number] [place] [address] 31783- 3914 Oct, [facility] [id number] [place] [address] 83301- 6459 16 Oct, 2016 Generalized anxiety disorder F41.1 ; Poor appetite R63.0 ; Dehydration E86.0 and Failure to thrive in adult R62.7 [facility] [id number] [place] [address] 43237- 0925 07 Oct, 2016 Generalized anxiety disorder F41.1 and Failure to thrive in adult R62.7 [facility] [id number] [place] [address] 83023- 8888 Oct, [facility] [id number] [place] [address] 69608- 9651 Oct, [facility] [id number] [place] [address] 55729 -9920 Sep, Vaginal discharge N89.8 and Acute cystitis with hematuria N30.01 [facility] [id number] [place] [address] 91502- 0952 Sep, [facility] [id number] [place] [address] 96693- 4714 Sep, [facility] [id number] [place] [address] 99281- 3733 Sep, Dysthymic disorder F34.1 ; Acute vaginitis N76.0 ; Dysuria R30.0 and Vaginal yeast infection B37.3 [facility] [id number] [place] [address] 52361- 9611 Aug, [facility] [id number] [place] [address] 99754- 3692 Aug, [facility] [id number] [place] [address] 62055 -1132 Aug, Foul smelling urine R82.90 ; Rapid heart rate R00.0 and Flatulence R14.3 [place] [id number] [place] [address] 33430- 0587 Aug, [facility] [id number] [place] [address] 59895- 7018 Jul, Constipation, unspecified constipation type K59.00 ; Weak R53.1 ; Poor appetite R63.0 ; Coronary artery disease involving [place] heart without angina pectoris, unspecified vessel or lesion type I25.10 ; Fatigue, unspecified type R53.83 ; Urinary incontinence, unspecified type R32 and Insomnia, unspecified type G47.00 [facility] [id number] [place] [address] 08831- 3788 Jul, [facility] [id number] [place] [address] 36913- 5001 Jun, Dysuria R30.0 [facility] [place] [id number] [place] [address] 68945- 0505 Jun, [facility] [id number] [place] [address] 41947- 9838 Jun, Urinary tract infection, site not specified N39.0 ; Acute vaginitis N76.0 and Diarrhea, unspecified type R19.7 [place] [id number] [place] [address] 36710- 3866 May, [place] [address] 60060- 4170 April, [facility] [address] [id number] April, Encounter for dental examination Z01.20 [facility] [id number] [place] [address] 01620- 5132 April, [facility] [id number] [place] [address] 71350- 8229 April, Tremor R25.1 and Episodic tension-type headache, not intractable G44.219 [facility] [id number] [place] [address] 58347- 9404 Mar, [facility] [id number] [place] [address] 19180- 7473 Jan, Mood disorder F39 [facility] [id number] [place] [address] 51360 -7669 Jan, [facility] [id number] [place] [address] 31835- 8649 Jan, [facility] [id number] [place] [address] 09629- 0857 Jan, [facility] [id number] [place] [address] 57229- 1778 Jan, [facility] [id number] [place] [address] 62034- 4782 Jan, [facility] [id number] [place] [address] 28485- 6515 Jan, [facility] [id number] [place] [address] 49102 -3493 Dec, Acute diarrhea R19.7 [facility] [id number] [place] [address] 96149- 3164 Dec, [facility] [id number] [place] [address] 29114- 1641 Dec, [facility] [id number] [place] [address] 54378- 7455 Dec, [facility] [id number] [place] [address] 86050 -2772 Dec, N&V (nausea and vomiting) R11.2 [facility] [id number] [place] [address] 50375- 9160 Dec, Generalized anxiety disorder F41.1 [facility] [address] 02154- 1127 Dec, Generalized anxiety disorder F41.1 [facility] [address] 39641- 3599 Nov, Post concussion syndrome F07.81 [facility] [address] 94475- 5467 Nov, Generalized anxiety disorder F41.1 [facility] [id number] [place] [address] 14959- 0368 Nov, [facility] [address] 11530- 3541 Nov, Generalized anxiety disorder F41.1 [facility] [address] [id number] Oct, Dental caries K02.9 [facility] [id number] [place] [address] 66948- 4711 Oct, [facility] [id number] [place] [address] [id number] Oct, Dental examination Z01.20 [facility] [address] [id number] Oct, Encounter for dental examination Z01.20 [facility] [id number] [place] [address] 90174- 0021 09 Oct, 2015 CAD (coronary artery disease) I25.10 [facility] [address] [place] [address]- 5787 Sep, Generalized anxiety disorder F41.1 [facility] [address] 78812- 4290 Sep, [facility] [address] 81599- 2811 Sep, Rash and other nonspecific skin eruption R21 and Yeast vaginitis B37.3 [facility] [address] 10717- 8566 Sep, Generalized anxiety disorder F41.1 [facility] [address] 80980- 3356 Aug, Insect bites 919.4 and Hemorrhoids 455.6 [facility] [address] 17083- 9078 Aug, Generalized anxiety disorder 300.02 [facility] [address] 24982- 6444 Aug, [facility] [address] 29314- 5083 Aug, [facility] [address] 32085- 5887 Aug, Generalized anxiety disorder 300.02 ; No condition on [place] II V71.09 ; Heart problem 429.9 and Hypertension 401.9 [facility] [id number] [place] [address] 66807- 8130 Aug, [facility] [address] 65059- 9596 Jul, [facility] [address] 93157- 6296 Jul, [facility] [address] 77290- 5016 Jul, [facility] [address] 99064- 8845 Jul, [facility] [address] [place] [address]- 1640 Jul, Rash 782.1 [facility] [id number] [place] [address] [id number]- [address] Jul, UTI (urinary tract infection) 599.0 [facility] [id number] [place] [address]- 4629 Jul, [facility] [id number] [place] [address]- [address] Jun, Dysthymia 300.4 and Anxiety 300.00 [facility] [id number] [place] [address]- 4920 Jun, 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 [facility] [id number] [place] [address]- [address] May, [facility] [id number] [place] [address]- 7837 May, [facility] [id number] [place] [address]- 3916 May, Unspecified breast screening V76.10 [facility] [id number] [place] [id number] May, Dental examination V72.2 [facility] [address] [address] April, [facility] [address] [address] April, [facility] [id number] [place] [address] [id number] April, Dental examination V72.2 [facility] [address] [id number] April, Dental examination V72.2 [facility] [id number] [place] [address]- 1136 14 Mar, 2015 [facility] [place] [facility] [address] [id number] [place] [address] 13 Mar, 2015 [facility] [place] [facility] [address] [id number] [place] [address]- [address] 25 Jan, 2015 [facility] [place] [facility] [address] [id number] [place] [address]- [address] 25 Jan, 2015 [facility] [place] [facility] [address] [id number] [place] [address]- [address]206 18 Jan, 2015 [facility] [place] [facility] [address] [id number] [place] [address]- [address] 18 Jan, 2015 [facility] [place] [facility] [address] [id number] [place] [address]- [address] 16 Jan, 2015 [facility] [place] [facility] [address] [id number] [place] [address]- 1016 16 Jan, 2015 [facility] [place] [facility] [address] [id number] [place] [address]- [address] 13 Jan, 2015 [facility] [place] [facility] [address] [id number] [place] [address]- [address] 13 Jan, 2015 [facility] [place] [facility] [address] [id number] [place] [address]- [address] 11 Jan, 2015 [facility] [place] [facility] [address] [id number] [place] [address]- [address] 11 Jan, 2015 [facility] [place] [facility] [address] [id number] [place] [address] 11 Jan, 2015 [facility] [place] [facility] [address] [id number] [place] [place] [address] Jan, [facility] [place] [facility] [address] [id number] [place] [address] 09 Jan, 2015 [facility] [place] [facility] [address] [id number] [place] [address] 09 Jan, 2015 [facility] [place] [facility] [address] [id number] [place] [address]- 2627 Jan, 2014 [facility] [place] [facility] [address] [id number] [place] [address] 48[address] Jan, 2014 [facility] [place] [facility] [address] [id number] [place] [address]- 8926 Jan, 2014 [facility] [place] [facility] [address] [id number] [place] [address]- 6476 Jan, 2014 [facility] [place] [facility] [address] [id number] [place] [address]- 2549 Jan, 2014 [facility] [place] [facility] [address] [id number] [place] [address]- 4422 Jan, 2014 [facility] [place] [facility] [address] [id number] [place] [address]- 1601 Jan, 2014 [facility] [place] [facility] [address] [id number] [place] [address]- 9329 Jan, [facility] [place] [facility] [address] [id number] [place] [address]- 5768 Dec, [facility] [place] [facility] [address] [facility] [id number] [place] [address]- 9452 Dec, [facility] [place] [facility] [address] [facility] [id number] [place] [address]- 0374 Dec, [facility] [place] [facility] [address] [id number] [place] [address]- [address]32 Dec, [facility] [place] [facility] [address] [id number] [place] [address]- 7782 Nov, [facility] [place] [facility] [address] [id number] [place] [address]- 9142 Nov, [facility] [place] [facility] [address] [id number] [place] [address]- 1725 Nov, [facility] [place] [facility] [address] [id number], [place] [address]- 459[address] Nov, [facility] [place] [facility] [address] [id number] [place] [address]- 6521 Nov, [facility] [place] [facility] [address] [id number] [place] [address]- 5303 Nov, [facility] [place] [facility] [address] [facility] [id number] [place] [address]- 9266 Nov, [facility] [place] [facility] [address] [id number] [place] [address]- 7766 Oct, [facility] [place] [facility] [address] [id number] [place] [address]- 1563 Oct, [facility] [place] [facility] [address] [id number] [place] [address]- 6657 Oct, [facility] [place] [facility] [address] [id number] [place] [address]- 7112 Oct, [facility] [place] [facility] [address] [id number] [place] [address]- 4870 Oct, [facility] [place] [facility] [address] [id number] [place] [address]- 0548 Oct, [facility] [place] [facility] [address] [id number] [place] [address]- 8889 Oct, [facility] [place] [facility] [address] [id number][place] [address]- 9524 Oct, [facility] [place] [facility] [address] [id number][place] [address]- 0714 Oct, [facility] [place] [facility] [address] [id number] [place] [address]- 2318 Oct, [facility] [place] [facility] [address] [id number], [place] [address]- 0669 Oct, [facility] [place] [facility] [address] [id number][place] [address]- 1175 Oct, [facility] [place] [facility] [address] [id number] [place] [address]- 3935 Sep, [facility] [place] [facility] [address] [id number] [place] [address]- 6411 Sep, [facility] [place] [facility] [address] [id number] [place] [address] Sep, [facility] [place] [facility] [address] [id number] [place] [address]- 6233 Sep, [facility] [place] [facility] [address] [id number] [place] [address]- 8321 Jul, [facility] [place] [facility] [address] [id number] [place] [address]- 6619 Jul, [facility] [place] [facility] [address] [id number] [place] [address]- 5217 Jul, [facility] [place] [facility] [address] [id number] [place] [address]- 5157 Jul, [facility] [place] [facility] [address] [id number] [place] [address]- 6207 Jun, [facility] [place] [facility] [address] [id number] [place] [address]- 1460 Jun, [facility] [place] [facility] [address] [id number] [place] [address]- 8544 Jun, [facility] [place] [facility] [address] [id number] [place] [address]- 7924 Jun, [facility] [place] [facility] [address] [id number] [place] [address]- 5516 May, [facility] [place] [facility] [address] [id number] [place] [address]- 4092 May, [facility] [place] [facility] [address] [id number] [place] [address]- 0646 April, [facility] [place] [facility] [address] [id number] [place] [address]- 4233 April, [facility] [address] [id number] [place] [address]- 1745 April, [facility] [place] [facility] [address] [id number] [place] [address]- 3232 April, [facility] [place] [facility] [address] [id number] [place] [address]- 6720 April, [facility] [place] [facility] [address] [id number] [place] [address]- 7149 April, [facility] [place] [facility] [address] [id number] [place] [address]- 7737 April, [facility] [place] [facility] [address] [id number] [place] [address]- 0956 April, [facility] [place] [facility] [address] [id number] [place] [address]- 4877 April, [facility] [place] [facility] [address] [id number] [place] [address]- 5949 Mar, [facility] [place] [facility] [address] [id number] [place] [address]- 7747 Mar, [facility] [place] [facility] [address] [id number] [place] [address]- 4721 Mar, [facility] [place] [facility] [address] [id number] [place] [address]- 4803 Mar, [facility] [place] [facility] [address] [id number] [place] [address]- 3965 Jan, [facility] [place] [facility] [address] [id number] [place] [address]- 9185 Jan, [facility] [place] [facility] [address] [id number] [place] [address]- 0447 Jan, [facility] [place] [facility] [address] [id number] [place] [address]- 1193 Jan, [facility] [place] [facility] [address] [id number] [place] [address]- 8592 10 Jan, 2014 [facility] [place] [facility] [address] [id number] [place] [address]- 2893 Jan, [facility] [place] [facility] [address] [id number] [place] [address]- 5186 Jan, [facility] [place] [facility] [address] [id number] [place] [address]- 1500 Jan, [facility] [place] [facility] [address] [id number] [place] [address]- 2950 Jan, [facility] [place] [facility] [address] [id number] [place] [address]- 9005 Jan, [facility] [place] [facility] [address] [id number] [place] [address]- 6983 Jan, [facility] [place] [facility] [address] [id number] [place] [address]- 2044 Jan, [facility] [place] [facility] [address] [id number] [place] [address]- 4692 Dec, [facility] [place] [facility] [address] [id number] [place] [address]- 1739 Dec, [facility] [place] [facility] [address] [id number] [place] [address]- 2308 Dec, [facility] [place] [facility] [address] [id number] [place] [address]- 8352 Dec, [facility] [place] [facility] [address] [id number] [place] [address]- 4219 Nov, [facility] [place] [facility] [address] [id number] [place] [address]- 6783 Nov, [facility] [place] [facility] [address] [id number] [place] [address]- 7464 Nov, [facility] [place] [facility] [address] [id number] [place] [address]- 7037 Nov, [facility] [place] [facility] [address] [id number] [place] [address]- 4787 Oct, [facility] [place] [facility] [address] [id number] [place] [address]- 7926 Oct, [facility] [place] [facility] [address] [id number] [place] [address]- 3706 Sep, [facility] [place] [facility] [address] [id number] [place] [address]- 1483 Sep, [facility] [place] [facility] [address] [id number] [place] [address]- 7621 Jul, [facility] [place] [facility] [address] [id number] [place] [address]- 1639 Jul, [facility] [place] [facility] [address] [id number] [place] [address]- 3516 Jun, [facility] [place] [facility] [address] [id number] [place] [address]- 4890 Jun, [facility] [place] [facility] [address] [id number] [place] [address]- 4348 Jun, [facility] [place] [facility] [address] [id number] [place] [address]- 1290 May, [facility] [place] [facility] [address] [id number] [place] [address]- 9251 May, [facility] [place] [facility] [address] [id number] [place] [address]- 7119 May, [facility] [place] [facility] [address] [id number] [place] [address]- 2669 May, [facility] [place] [facility] [address] [id number] [place] [address]- 9449 May, [facility] [place] [facility] [address] [id number] [place] [address]- 2013 April, [facility] [place] [facility] [address] [id number] [place] [address]- 0102 April, [facility] [address] [id number] [place] [address]- 8199 April, [facility] [address] [id number] [place] [address]- 1909 April, [facility] [address] [facility] [id number] [place] [address]- 7563 April, [facility] [place] [facility] [address] [id number] [place] [address]- 4637 April, [facility] [address] [id number] [place] [address]- 1222 Mar, [facility] [address] [facility] [id number] [place] [address]- 0233 Mar, [facility] [address] [id number] [place] [address]- 4444 Jan, [facility] [place] [facility] [address] [id number] [place] [address]- 3851 Jan, [facility] [address] [id number] [place] [address]- 0328 Jan, [facility] [place] [facility] [address] [facility] [id number] [place] [address]- 6045 Jan, [facility] [address] [id number], [place] [address]- 7088 Jan, [facility] [place] [facility] [address] [id number], [place] [address]- 2372 Jan, [facility] [place] [facility] [address] [id number] [place] [address]- 5672 Jan, [facility] [place] [facility] [address] [id number] [place] 6256 Jan, [facility] [place] [facility] [address] [facility] [id number] [place] [address]- 1584 Jan, [facility] [place] [facility] [address] [id number] [place] [address]- 0276 Jan, [facility] [place] [facility] [address] [id number] [place] 5986 Jan, [facility] [place] [facility] [address] [id number] [place] [address]- 1606 Dec, [facility] [address] [id number] [place] [address]- 0909 Nov, [facility] [place] [facility] [address] [id number] [place] [address]- 9298 Nov, [facility] [place] [facility] [address] [id number] [place] [address]- 6385 Nov, [facility] [address] [id number] [place] [address]- 3475 Nov, [facility] [address] [id number] [place] [address]- 1282 Nov, [facility] [address] [id number] [place] [address]- 1822 Nov, [facility] [place] [facility] [address] [id number] [place] [address]- 8172 Nov, [facility] [place] [facility] [address] [id number] [place] [address]- 6731 Nov, [facility] [place] [facility] [address] [id number] [place] [address]- 0518 Nov, [facility] [place] [facility] [address] [id number] [place] [address]- 6047 Nov, [facility] [place] [facility] [address] [id number] [place] [address]- 3996 Nov, [facility] [place] [facility] [address] [id number] [place] [address]- 3447 Nov, [facility] [place] [facility] [address] [id number] [place] [address]- 0408 Nov, [facility] [place] [facility] [address] [id number] [place] [address]- 3979 Oct, [facility] [place] [facility] [address] [id number] [place] [address]- 5816 Oct, [facility] [place] [facility] [address] [facility] [id number] [place] [address] 2546 Oct, [facility] [place] [facility] [address] [id number] [place] [address]- 7996 Sep, [facility] [place] [facility] [address] [id number] [place] [address]- 5344 Sep, [facility] [place] [facility] [address] [id number] [place] [address]- 7881 Sep, [facility] [place] [facility] [address] [id number] [place] [address]- 5173 Sep, [facility] [place] [facility] [address] [id number] [place] [address]- 2994 Aug, [facility] [place] [facility] [address] [id number] [place] [address]- 9781 Aug, [facility] [place] [facility] [address] [id number] [place] [address]- 3360 Jul, [facility] [place] [facility] [address] [id number], [place] [address]- 8106 May, [facility] [place] [facility] [address] [id number], [place] [address]- 8632 May, [facility] [place] [facility] [address] [id number] [place] [address]- 4051 May, [facility] [place] [facility] [address] [facility] [id number], [place] [address]- 6536 April, [facility] [place] [facility] [address] [facility] [id number] [place] [address]- 5266 Mar, [facility] [place] [facility] [address] [id number] [place] [address]- 8269 10 Mar, 2012 [facility] [address] [id number] [place] [address]- 5849 Mar, [facility] [address] [id number] [place] [address]- 0420 Jan, [facility] [address] [id number] [place] [address]- 5880 Jan, [facility] [address] [id number] [place] [address]- 6596 Jan, [facility] [id number] [place] [address], [place] [address]- 3849 Dec, [facility] [address] [id number] [place] [address]- 7999 Dec, [facility] [address] [id number] [place] [address]- 0176 Dec, [facility] [address] [id number] [place] [address]- 4051 Dec, [facility] [address] [id number] [place] [address]- 6278 Nov, [facility] [address] [id number] [place] [address]- 8054 Nov, [facility] [address] [id number] [place] [address]- 8996 Nov, [facility] [address] [id number] [place] [address]- 0874 Oct, [facility] [place] [facility] [address] [id number] [place] [address]- 4940 31 Sep, 2011 [facility] [place] [facility] [address] [id number] [place] [address]- 1522 26 Sep, 2011 [facility] [address] [id number] [place] [address]- 3728 13 Sep, 2011 [facility] [place] [facility] [address] [id number] [place] [address]- 9586 15 Nov, 2010 [facility] [place] [facility] [address] [id number] [place] [address]- 3486 23 Oct, 2010 [facility] [place] [facility] [address] [id number] [place] [address]86 19 Oct, 2010 [facility] [place] [facility] [address] [id number] [place] [address]- 4646 18 Oct, 2010 [facility] [place] [facility] [address] [id number] [place] 3756 16 Oct, 2010 [facility] [place] [facility] [address] [id number] [place] [address]- 9477 Sep, [facility] [place] [facility] [address] [id number] [place] [address]- 9093 April, [facility] [place] [facility] [address] [id number] [place] [address]- 8006 29 Nov, 2009 [facility] [place] [facility] [address] [id number] [place] [address]- 2828 24 Nov, 2009 [facility] [place] [facility] [address] [id number], [place] [address]- 4570 22 Nov, 2009 [facility] [place] [facility] [address] [id number], [place] [address]- 1515 10 Nov, 2009 [facility] [place] [facility] [address] [id number], [place] [address]- 8294 10 Nov, 2009 [facility] [place] [facility] [address] [id number] [place] [address]- 7365 19 Oct, 2009 [facility] [place] [facility] [address] [id number][place] 2516 02 Oct, 2009 [facility] [place] [facility] [address] [id number], [place] [address]- 4393 13 Sep, 2009 [facility] [place] [facility] [address] [id number], [place] [address]- 3076 Jan, IMMUNIZATIONS No Known Immunizations SOCIAL HISTORY Never Assessed REASON FOR VISIT Return from [facility] PLAN OF CARE VITAL SIGNS MEDICATIONS Unknown Medications RESULTS No Results PROCEDURES No Known procedures INSTRUCTIONS MEDICATIONS ADMINISTERED No Known Medications MEDICAL (GENERAL) HISTORY Type Description Date Medical History Hypertension Medical History Heart disease CABG X3 Stress test 07/2015 Medical History Gastric ulcer Medical History Hyperlipidemia Medical History Headache syndrome Medical History Psychiatric disorders-depression/racing thoughts Medical History Depression Medical History At [facility] 04/2016 Started on [facility] Medical History Anemia 04/2016 postsurgical hip fx Surgical History right hip replacement w/ Dr. Bruce 2011 Surgical History triple bypass surgery 2003 Surgical History S/P left hip IM Nail (Intertrechanteric hip fx) 04/28/16 Hospitalization History surgeries Hospitalization History Hypertension Hospitalization History ER for a concussion 11/24/15 Hospitalization History Intertrechanteric hip fx 04/27/16 Hospitalization History [facility] (inpatient [facility] 2 times) Hx of 3 inpatient psych treatments in past in [place] oct 2016 [facility] History [facility] 2016
--- OUTSIDE RECORDS SUMMARY | 2019-02-11 14:14 | XMS REPORT ---
Author Author WOLF AGUIRRE [facility] Address [address] [place] [address] Care Team Providers Care Log Inspector Name Role Phone WOLF AGUIRRE Unavailable PROBLEMS Type Condition ICD9-CM Code ENV88-SN Code Onset Dates Condition Status SNOMED Code Problem Sundowning F05 Active 730746585 Problem Constipation, unspecified constipation type K59.00 Active 19160083 Problem Reactive depression F32.9 Active 11685778 Problem Vascular dementia with behavior disturbance F01.51 Active 862218029845250 Problem Insomnia, unspecified type G47.00 Active 990632074 Problem Generalized anxiety disorder F41.1 Active 65484974 Problem Other chronic pain G89.29 Active 11961574 Problem Severe episode of recurrent major depressive disorder, without psychotic features F33.2 Active 77175743 Problem Slow transit constipation K59.01 Active 82874728 Problem 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 Active 748107146 Problem Obsessive thinking F42.8 Active 35132754 Problem Failure to thrive in adult R62.7 Active 041027438 Problem Dysthymic disorder F34.1 Active 85801389 Problem Hypertension I10 Active 94591055 Problem Mood disorder F39 Active 55514680 Problem Irritable bowel syndrome with diarrhea K58.0 Active 471193922 Problem Oropharyngeal dysphagia R13.12 Active 82037077 Problem 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 Active 27272544 Problem Other chronic pain G89.29 Active 12222220 Problem Primary insomnia F51.01 Active 7689540 Problem Poor appetite R63.0 Active 42833311 Problem Atherosclerotic heart disease of [place] 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 Active 185816469494907 Problem Iron deficiency anemia secondary to inadequate dietary iron intake D50.8 Active 202592283 Problem Coarse tremors G25.2 Active 43701137 Problem Gastroesophageal reflux disease without esophagitis K21.9 Active 090553089 Problem Essential hypertension I10 Active 75740697 ALLERGIES No Information ENCOUNTERS Encounter Location Date Diagnosis [facility], [place] [address] [address] Sep, [facility], [place] [id number] [place] [address] 62322- 5666 Sep, [facility], [place] [id number] [address] 9[address] Sep, [facility] [address] [place] [id number] Sep, Generalized anxiety disorder F41.1 ; Obsessive thinking F42.8 and Mood disorder F39 [facility] [place] [id number] [place] [address] 68140- 0811 Sep, [facility], [place] [id number] [place] [address] 16522- 0803 Sep, [facility] [address] [place] [id number] Sep, [facility], [place] [address] [place] [address] 91168- 3679 Sep, [facility], [place] [id number] [place] [address] 23147- 8219 Sep, [facility] [address] [place] [id number] Sep, Obsessive thinking F42.8 [facility], [place] [address] [place] [address] 09745- 7250 Sep, [facility], [place] [address] [place] [address] 84204- 4688 Sep, [facility], [place] [address] [place] [address] 71499- 7179 Aug, [facility], [place] [id number] [place] [address] 53188- 8668 Aug, [facility], [place] [address] [address] 3764 Aug, Positive urine drug screen [facility]82.5 [facility] [address] [place] [id number] Aug, [facility], [place] [id number] [place] [address] 39740- 2224 Aug, [facility], [place] [id number] [place] [address] 84019- 8851 Aug, [facility], [place] [id number] [place] [address] 25868- 6812 Aug, Irritable bowel syndrome with diarrhea K58.0 [facility], [place] [id number] [place] [address] 32202- 9302 Aug, [facility], [place] [id number] [place] [address] 67269- 9312 Aug, Obsessive thinking F42.8 ; Insomnia, unspecified type G47.00 and Other chronic pain G89.[address] [facility] [address] [id number] Aug, Obsessive thinking F42.8 ; Irritable bowel syndrome with diarrhea K58.0 ; Pain in right foot M79.671 ; Pain of left foot M79.672 and Gastroesophageal reflux disease without esophagitis K21.9 [facility], [place] [id number] [place] [address] 65299- 9635 Aug, [facility], [place] [address] [place] [address] 44749- 0914 Jul, [facility], [place] [id number] [place] [address] 66639- 0931 Jun, [facility], [place] [address] [place] [address] 13719- 3406 Jun, [facility] [address] [id number] Jun, Left lower quadrant pain R10.32 and Left leg pain M79.605 [facility], [place] [id number] [place] [address] 21374- 5767 Jun, [facility] [address] [place] [id number] Jun, Pain in left hip M25.552 ; Pain in right hip M25.551 and Primary insomnia F51.01 [facility], [place] [address] [address] 7616 Jun, [facility] [address] [place] [id number] May, [facility], [place] [id number] [place] [address] 99293- 1866 May, [facility], [place] [id number] [place] [address] 54745- 0002 May, [facility] [address] [place] [id number] May, Mood disorder F39 [facility], [place] [address] [address] 0746 May, [facility], [place] [id number] [address] 7450 April, [facility] [address] [place] [id number] April, Generalized anxiety disorder F41.1 ; Obsessive thinking F42.8 and Insomnia , unspecified type G47.00 [facility], [place] [address] [address] 7652 April, [facility], [place] [id number] [address] 5941 April, Rash of face R21 [facility], [place] [address] [address] 5901 Mar, [facility], [place] [id number] [address] 6696 Mar, [facility], [place] [address], [place] [address]- 1002 Mar, [facility], [place] [id number] [place] [address] 70042- 2428 Jan, [place] [id number] [place] [address] 53731- 1424 Jan, [facility] [address] [id number] Jan, Constipation, unspecified constipation type K59.00 and Other chronic pain G89.29 [place] [address] 18068- 4373 Jan, [facility] [address] [id number] Jan, Obsessive thinking F42.8 and Coarse tremors G25.2 [place] [address] [id number] Jan, [place] [address] [id number] Jan, [facility] [address] [id number] Jan, Generalized anxiety disorder F41.1 ; Obsessive thinking F42.8 ; Callus of foot L84 and 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 [place] [id number] [place] [address] 97298- 8098 Dec, Generalized anxiety disorder F41.1 and Severe episode of recurrent major depressive disorder, without psychotic features F33.2 [place] [id number] [place] [address] 85197- 4981 Nov, [place] [id number] [place] [address] 40855- 1304 Nov, [facility] [address] [id number] Nov, Oropharyngeal dysphagia R13.12 ; Generalized anxiety disorder F41.1 and 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 [address] [facility] [id number] [address] 2543 Nov, [facility] [address] [address]- 3226 Nov, [facility] [id number] [address]- 3506 Oct, Constipation, unspecified constipation type K59.00 and Mood disorder F39 [facility] [id number] [address]- 6026 Oct, [facility] [id number] [place] [address] [id number] Sep, [facility] [id number] [id number] Sep, [facility] [id number] [place] [address] [id number] Sep, [facility] [id number] [address] Sep, [facility] [id number] Sep, Generalized abdominal pain R10.84 [facility], [place] [address] [address]- 2546 Sep, [facility] [id number] [place] [address] [id number] Sep, Generalized anxiety disorder F41.1 and Primary insomnia F51.01 [facility] [id number] [id number] Aug, [facility] [id number] [id number] Aug, Generalized anxiety disorder F41.1 [facility] [id number] [address]- 2546 Jul, [facility] [address] [place] [id number] Jul, Obsessive thinking F42.8 [facility], [place] [address] [address]- 8843 Jul, Generalized anxiety disorder F41.1 and Irritable bowel syndrome with diarrhea K58.0 [facility] [id number] [id number] Jul, Generalized anxiety disorder F41.1 [facility] [id number] [place] [address] [id number] Jun, Generalized anxiety disorder F41.1 [facility], [place] [id number] [place] [address] 52119- 6384 May, [facility] [address] [id number] May, Generalized anxiety disorder F41.1 ; Irritable bowel syndrome with diarrhea K58.0 and Coarse tremors G25.2 [facility], [place] [id number] [place] [address] 35734- 1271 April, [facility], [place] [address] [place] [address] 08503- 8103 April, [facility], [place] [id number] [place] [address] 69842- 8600 April, [facility], [place] [address] [place] [address] 34428- 5577 Mar, [facility] [address] [place] [id number] Mar, Severe episode of recurrent major depressive disorder, without psychotic features F33.2 and Pain in left hip M25.552 [facility], [place] [address] [place] [address] 29712- 9656 Mar, [facility], [place] [id number] [place] [address] 36461- 9019 Mar, [facility], [place] [address] [place] [address] 21609- 0484 Mar, [facility], [place] [address] [place] [address] 12000- 1386 Mar, Pain in right hip M25.551 and Self-care deficit in patient living alone R46.89 [facility] [address] [place] [address] 87942 -9745 Jan, Other chronic pain G89.29 ; Pain in left hip M25.552 and Slow transit constipation K59.01 [facility], [place] [id number] [place] [address] 77973- 3959 Jan, [facility], [place] [id number] [place] [address] 73506- 8412 Dec, Other depression F32.89 ; Constipation, unspecified constipation type K59.00 and Insomnia, unspecified type G47.00 [place] [id number] [place] [address] 20365- 7203 Nov, Reactive depression F32.9 ; Chronic idiopathic constipation K59.04 ; Generalized anxiety disorder F41.1 ; Coarse tremors G25.2 ; Gastroesophageal reflux disease without esophagitis K21.9 ; Dysthymic disorder F34.1 ; Vitamin deficiency, unspecified E56.9 and Primary insomnia F51.01 [place] [address] [place] [address] 80781- 5281 Nov, [place] [id number] [place] [address] 95091- 8066 Nov, [place] [id number] [place] [address] 08330- 3859 Nov, [place] [id number] [place] [address] 12331- 4483 Nov, Reactive depression F32.9 ; Essential hypertension I10 ; Generalized anxiety disorder F41.1 ; Atherosclerotic heart disease of [place] 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 ; Pain in right hip M25.551 ; Other chronic pain G89.29 ; Chronic idiopathic constipation K59.04 ; Primary insomnia F51.01 ; Coarse tremors G25.2 ; Gastroesophageal reflux disease without esophagitis K21.9 ; Iron deficiency anemia secondary to inadequate dietary iron intake D50.8 and Vitamin deficiency, unspecified E56.9 [facility], [place] [id number] [place] [address] 79232- 7681 Oct, [facility], [place] [id number] [place] [address] 90136- 8673 Oct, [facility], [place] [id number] [place] [address] 20802- 5937 Oct, [facility], [place] [id number] [place] [address] 30580- 7279 Oct, Generalized anxiety disorder F41.1 ; Poor appetite R63.0 ; Dehydration E86.0 and Failure to thrive in adult R62.7 [place] [id number] [place] [address] 38454- 2811 07 Oct, 2016 Generalized anxiety disorder F41.1 and Failure to thrive in adult R62.7 [place] [id number] [place] [address] 08399- 6514 Oct, [place] [id number] [place] [address] 65559- 5128 Oct, [facility] [id number] [place] [address] 48804 -6321 Sep, Vaginal discharge N89.8 and Acute cystitis with hematuria N30.01 [facility] [place] [id number] [place] [address] 72146- 5393 Sep, [facility], [place] [id number] [place] [address] 75567- 5366 Sep, [place] [id number] [place] [address] 40023- 1196 Sep, Dysthymic disorder F34.1 ; Acute vaginitis N76.0 ; Dysuria R30.0 and Vaginal yeast infection B37.3 [facility], [place] [id number] [place] [address] 35456- 1001 Aug, [facility], [place] [address] 08575- 4232 Aug, [facility] [id number] [place] [address] 18656 -4145 Aug, Foul smelling urine R82.90 ; Rapid heart rate R00.0 and Flatulence R14.3 [facility], [place] [address] 17571- 5740 Aug, [facility] [place] [address] 01285- 6978 Jul, Constipation, unspecified constipation type K59.00 ; Weak R53.1 ; Poor appetite R63.0 ; Coronary artery disease involving newtok heart without angina pectoris, unspecified vessel or lesion type I25.10 ; Fatigue, unspecified type R53.83 ; Urinary incontinence, unspecified type R32 and Insomnia, unspecified type G47.00 [facility] [place] [id number] [place] [address] 59868- 9609 Jul, [facility], [place] [id number] [place] [address] 08751- 9853 Jun, Dysuria R30.0 [facility] [place] [id number] [place] [address] 01836- 8247 Jun, [facility] [place] [id number] [place] [address] 77824- 3643 Jun, Urinary tract infection, site not specified N39.0 ; Acute vaginitis N76.0 and Diarrhea, unspecified type R19.7 [facility], [place] [address] 77593- 6558 May, [facility] [place] [id number] [place] [address] 82959- 8376 April, [facility] [address] [id number] April, Encounter for dental examination Z01.20 [facility] [place] [id number] [place] [address] 57177- 4793 April, [facility] [place] [id number] [place] [address] 84347- 6470 April, Tremor R25.1 and Episodic tension-type headache, not intractable G44.219 [facility], [place] [id number] [place] [address] 23790- 4636 Mar, [facility] [place] [id number] [place] [address] 21722- 2510 Jan, Mood disorder F39 [facility] [id number] [place] [address] 36896 -0046 Jan, [facility] [place] [id number] [place] [address] 66172- 2283 Jan, [facility] [place] [id number] [place] [address] 85019- 6258 Jan, [facility] [place] [id number] [place] [address] 67169- 6721 Jan, [facility] [place] [id number] [place] [address] 37711- 0564 Jan, [facility] [place] [id number] [place] [address] 05922- 3269 Jan, [facility] [id number] [place] [address] 25949 -9228 Dec, Acute diarrhea R19.7 [facility] [place] [id number] [place] [address] 30248- 4889 Dec, [facility] [place] [id number] [place] [address] 49505- 7270 Dec, [facility] [place] [id number] [place] [address] 77744- 1999 Dec, [facility] [address] [address] -3248 Dec, N&V (nausea and vomiting) R11.2 [facility] [place] [id number] [place] [address] 45646- 7936 Dec, Generalized anxiety disorder F41.1 [facility] [place] [id number] [place] [address] 48599- 3096 Dec, Generalized anxiety disorder F41.1 [facility] [place] [id number] [place] [address] 52772- 9054 Nov, Post concussion syndrome F07.81 [facility] [place] [address] 77005- 7701 Nov, Generalized anxiety disorder F41.1 [facility] [place] [id number] [place] [address] 32254- 7870 Nov, [facility] [place] [id number] [place] [address] 56166- 3799 Nov, Generalized anxiety disorder F41.1 [facility] [id number] [place] [address] [id number] Oct, Dental caries K02.9 [facility] [place] [id number] [place] [address] 70801- 2157 Oct, [facility] [id number] [place] [address] [id number] Oct, Dental examination Z01.20 [facility] [id number] [place] [address] [id number] Oct, Encounter for dental examination Z01.20 [facility] [place] [address] 57060- 5194 Oct, CAD (coronary artery disease) I25.10 [facility] [place] [id number] [place] [address] 04637- 1574 Sep, Generalized anxiety disorder F41.1 [facility] [place] [id number] [place] [address] 45319- 5138 Sep, [facility] [place] [address] 33144- 9920 Sep, Rash and other nonspecific skin eruption R21 and Yeast vaginitis B37.3 [facility] [place] [address] 46023- 3199 Sep, Generalized anxiety disorder F41.1 [facility] [place] [address] 89579- 9731 Aug, Insect bites 919.4 and Hemorrhoids 455.6 [facility] [place] [address] 34644- 1733 Aug, Generalized anxiety disorder 300.02 [facility] [place] [address] 17512- 0081 Aug, [facility] [place] [address] 85746- 7253 Aug, [facility], [place] [id number] [place] [address]- [address] Aug, Generalized anxiety disorder 300.02 ; No condition on Hector II V71.09 ; Heart problem 429.9 and Hypertension 401.9 [facility], [place] [id number] [place] [address]- [address] Aug, [facility], [place] [id number] [place] [address]- [address]60 Jul, [facility], [place] [id number] [place] [id number]- [address] Jul, [facility], [place] [address] [address]- [address] Jul, [facility], [place] [id number] [place] [address]- [address]79 Jul, [facility], [place] [address] [address] Jul, Rash 782.1 [facility], [place] [id number] [place] [address]63- [address] Jul, UTI (urinary tract infection) 599.0 [facility], [place] [id number] [address] Jul, [facility], [place] [id number] [place] [address]- [address] Jun, Dysthymia 300.4 and Anxiety 300.00 [facility], [place] [id number] [place] [address] 7[address]64- [address]207 Jun, 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 [id number] [place] [id number] May, Dental examination V72.2 [facility], [place] [id number] [place] [address] [address] April, [facility] [place] [id number] [place] [address]- [address]97 April, [facility] [id number] [place] [id number] April, Dental examination V72.2 [facility] [id number] [place] [address] [id number] April, Dental examination V72.2 [facility] [place] [id number] [place] [address]91- 4309 Mar, [facility] [place] [id number] [place] [address]79- 1486 13 Mar, 2015 [facility] [place] [facility] [address] [id number] [place] [address]- 2380 25 Jan, 2015 [facility] [place] [facility] [address] [id number] [place] [address]- 3676 25 Jan, 2015 [facility] [place] [facility] [address] [id number] [place] [address]- 3042 18 Jan, 2015 [facility] [place] [facility] [address] [id number] [place] [address]- 6093 18 Jan, 2015 [facility] [place] [facility] [address] [id number] [place] [address]- 6122 16 Jan, 2015 [facility] [place] [facility] [address] [id number] [place] [address]- 1102 16 Jan, 2015 [facility] [place] [facility] [address] [id number] [place] [address]- 5962 Jan, [facility] [place] [facility] [address] [id number] [place] [address]- 2050 13 Jan, 2015 [facility] [place] [facility] [address] [id number] [place] [address]- 8432 Jan, [facility] [place] [facility] [address] [id number] [place] [address]- 0474 Jan, [facility] [place] [facility] [address] [id number] [place] [address]- 6534 Jan, [facility] [place] [facility] [address] [id number] [place] [address]- 9026 Jan, [facility] [place] [facility] [address] [id number] [place] [address]- 6249 Jan, [facility] [place] [facility] [address] [id number] [place] [address]- 3742 Jan, [facility] [place] [facility] [address] [id number] [place] [address]- 8230 Jan, [facility] [place] [facility] [address] [id number] [place] [address]- 5620 Jan, 2014 [facility] [place] [facility] [address] [id number] [place] [address]- 3636 Jan, 2014 [facility] [place] [facility] [address] [id number] [place] [address]- 1866 Jan, 2014 [facility] [place] [facility] [address] [id number] [place] [address]- 8176 Jan, 2014 [facility] [place] [facility] [address] [id number] [place] [address]- 4075 Jan, 2014 [facility] [place] [facility] [address] [id number] [place] [address]- 6287 Jan, 2014 [facility] [place] [facility] [address] [id number] [place] [address]- 5012 Jan, 2014 [facility] [place] [facility] [address] [id number] [place] [address]- 0004 Dec, [facility] [place] [facility] [address] [id number] [place] [address]- 6880 Dec, [facility] [place] [facility] [address] [id number] [place] [address]- 9688 Dec, [facility] [place] [facility] [address] [id number] [place] [address]- 5438 Dec, [facility] [place] [facility] [address] [id number] [place] [address]- 6465 Nov, [facility] [place] [facility] [address] [id number] [place] [address]- 0069 Nov, [facility] [place] [facility] [address] [id number] [place] [address]- 2548 Nov, [facility] [place] [facility] [address] [id number] [place] [address]- 5001 Nov, [facility] [place] [facility] [address] [id number] [address]- 7283 Nov, [facility] [place] [facility] [address] [id number] [place] [address]- 5527 Nov, [facility] [place] [facility] [address] [id number] [place] [address]- 6656 Nov, [facility] [place] [facility] [address] [id number] [place] [address]- 2961 Oct, [facility] [place] [facility] [address] [id number] [place] [address]- 2658 Oct, [facility] [place] [facility] [address] [id number] [place] [address]- 4695 Oct, [facility] [place] [facility] [address] [id number] [place] [address]- 4405 Oct, [facility] [place] [facility] [address] [id number] [place] [address]- 7534 Oct, [facility] [place] [facility] [address] [id number] [place] [address]- 7043 Oct, [facility] [place] [facility] [address] [id number] [place] [address]- 7029 Oct, [facility] [place] [facility] [address] [id number] [place] [address]- 6929 Oct, [facility] [place] [facility] [address] [id number] [address]- 3829 Oct, [facility] [place] [facility] [address] [id number] [address]- 5618 Oct, [facility] [place] [facility] [address] [id number] [place] [address]- 2925 Oct, [facility] [place] [facility] [address] [id number] [address]- 8828 Oct, [facility] [place] [facility] [address] [id number] [place] [address]- 1812 Sep, [facility] [place] [facility] [address] [id number] [place] [address]- 4381 Sep, [facility] [place] [facility] [address] [id number] [place] [address]- 2719 Sep, [facility] [place] [facility] [address] [id number] [place] [address]- 4124 Sep, [facility] [place] [facility] [address] [id number] [place] [address]- 7733 Jul, [facility] [place] [facility] [address] [id number] [place] [address]- 7552 Jul, [facility] [place] [facility] [address] [id number] [place] [address]- 2796 Jul, [facility] [place] [facility] [address] [id number] [place] [address]- 9044 Jul, [facility] [place] [facility] [address] [id number] [place] [address]- 0134 Jun, [facility] [place] [facility] [address] [id number] [place] [address]- 8658 Jun, [facility] [place] [facility] [address] [id number] [place] [address]- 3010 Jun, [facility] [place] [facility] [address] [id number] [place] [address]- 3845 Jun, [facility] [place] [facility] [address] [id number] [place] [address]- 6774 May, [facility] [place] [facility] [address] [id number] [place] [address]- 8673 May, [facility] [place] [facility] [address] [id number] [place] [address]- 9112 April, [facility] [place] [facility] [address] [id number] [place] [address]- 9319 April, [facility] [place] [facility] [address] [id number] [place] [address]- 6425 April, [facility] [address] [id number] [place] [address]- 4429 April, [facility] [place] [facility] [address] [id number] [place] [address]- 2769 April, [facility] [place] [facility] [address] [id number] [place] [address]- 1051 April, [facility] [place] [facility] [address] [id number] [place] [address]- 7203 April, [facility] [place] [facility] [address] [id number] [place] [address]- 8313 April, [facility] [place] [facility] [address] [id number] [place] [address]- 2922 April, [facility] [place] [facility] [address] [id number] [place] [address]- 6905 Mar, [facility] [place] [facility] [address] [id number] [place] [address]- 2055 Mar, [facility] [place] [facility] [address] [id number] [place] [address]- 4821 Mar, [facility] [place] [facility] [address] [id number] [place] [address]- 0968 Mar, [facility] [place] [facility] [address] [id number] [place] [address]- 0829 Jan, [facility] [place] [facility] [address] [id number] [place] [address]- 3810 Jan, [facility] [place] [facility] [address] [id number] [place] [address]- 7605 Jan, [facility] [place] [facility] [address] [id number] [place] [address]- 9695 Jan, [facility] [place] [facility] [address] [id number] [place]199 Jan, [facility] [place] [facility] [address] [id number] [address]- 4264 Jan, [facility] [address] [id number] [place] [address]- 9633 Jan, [facility] [place] [facility] [address] [id number] [place] [address]- 8897 Jan, [facility] [place] [facility] [address] [id number] [place] [address]- 7406 Jan, [facility] [place] [facility] [address] [id number] [place] [address]- 9391 Jan, [facility] [place] [facility] [address] [id number] [place] [address]- 2771 Jan, [facility] [place] [facility] [address] [id number] [place] [address]- 6245 Jan, [facility] [place] [facility] [address] [id number] [place] [address]- 7846 Dec, [facility] [place] [facility] [address] [id number] [place] [address]- 1484 Dec, [facility] [place] [facility] [address] [id number] [place] [address]- 8779 Dec, [facility] [place] [facility] [address] [facility] [id number] [place] [address]- 0117 Dec, [facility] [place] [facility] [address] [id number] [place] [address]- 1518 Nov, [facility] [place] [facility] [address] [id number] [place] [address]- 0266 Nov, [facility] [place] [facility] [address] [id number] [place] [address]- 7899 Nov, [facility] [place] [facility] [address] [id number] [place] [address]- 1173 Nov, [facility] [place] [facility] [address] [id number] [address]- 3625 Oct, [facility] [place] [facility] [address] [id number] [place] [address]- 5295 Oct, [facility] [place] [facility] [address] [id number] [place] [address]- 5427 Sep, [facility] [place] [facility] [address] [id number] [place] [address]- 0255 Sep, [facility] [place] [facility] [address] [id number] [place] [address]- 0631 Jul, [facility] [place] [facility] [address] [id number] [place] [address]- 2857 Jul, [facility] [place] [facility] [address] [id number] [place] [address]- 0202 Jun, [facility] [place] [facility] [address] [id number] [place] [address]- 1610 Jun, [facility] [place] [facility] [address] [id number] [place] [address]- 2863 Jun, [facility] [place] [facility] [address] [id number] [place] [address]- 8186 May, [facility] [place] [facility] [address] [id number] [place] [address]- 0798 May, [facility] [place] [facility] [address] [id number] [place] [address]- 6285 May, [facility] [place] [facility] [address] [id number] [place] [address]- 0863 May, [facility] [place] [facility] [address] [id number] [place] [address]- 4681 May, [facility] [place] [facility] [address] [id number] [place] [address]- 7411 April, [facility] [place] [facility] [address] [id number] [place] [address]- 2988 April, [facility] [place] [facility] [address] [id number], [place] [address]- 5116 April, [facility] [address] [id number] [place] [address]- 6774 April, [facility] [address] [id number] [place] [address]- 6604 April, [facility] [address] [facility] [id number] [place] [address]- 3886 April, [facility] [address] [id number] [place] [address]- 0654 Mar, [facility] [address] [id number] [place] [address]- 3613 Mar, [facility] [address] [facility] [id number] [place] [address]- 0067 Jan, [facility] [address] [id number] [place] [address]- 4532 Jan, [facility] [address] [id number] [address]- 2013 Jan, [facility] [address] [id number] [place] [address]- 5497 Jan, [facility] [address] [facility] [id number][place] [address]- 2875 Jan, [facility] [address] [id number][place] [address]- 9285 Jan, [facility] [place] [facility] [address] [id number][place] [address]- 2338 Jan, [facility] [place] [facility] [address] [id number] [place] [address]- 3534 Jan, [facility] [place] [facility] [address] [id number][place] [address]- 7079 Jan, [facility] [place] [facility] [address] [facility] [id number] 9732 Jan, [facility] [place] [facility] [address] [id number] [place] [address]- 6522 Jan, [facility] [address] [id number] [place] [address]- 1933 Dec, [facility] [place] [facility] [address] [id number] [place] [address]- 2466 Nov, [facility] [place] [facility] [address] [id number] [place] [address]- 8086 Nov, [facility] [place] [facility] [address] [id number] [place] [address]- 7765 Nov, [facility] [place] [facility] [address] [id number] [place] [address]- 4443 Nov, [facility] [address] [id number] [place] [address]- 4061 Nov, [facility] [address] [id number] [place] [address]- 5964 Nov, [facility] [place] [facility] [address] [id number] [place] [address]- 7953 Nov, [facility] [place] [facility] [address] [id number] [place] [address]- 2108 Nov, [facility] [place] [facility] [address] [id number] [place] [address]- 1781 Nov, [facility] [place] [facility] [address] [id number] [place] [address]- 3464 Nov, [facility] [place] [facility] [address] [id number] [place] [address]- 4000 Nov, [facility] [place] [facility] [address] [id number] [place] [address]- 4491 Nov, [facility] [place] [facility] [address] [id number] [place] [address]- 9777 Nov, [facility] [place] [facility] [address] [id number] [place] [address]- 2268 Oct, [facility] [place] [facility] [address] [id number] [place] [address]- 5168 Oct, [facility] [place] [facility] [address] [id number] [place] [address]- 1076 Oct, [facility] [place] [facility] [address] [facility] [id number] [place] [address]- 6226 Sep, [facility] [place] [facility] [address] [id number] [place] [address]- 9506 Sep, [facility] [place] [facility] [address] [id number] [place] [address]- 7160 Sep, [facility] [place] [facility] [address] [id number] [place] [address]- 2819 Sep, [facility] [place] [facility] [address] [id number] [place] [address]- 4977 Aug, [facility] [place] [facility] [address] [id number] [place] [address]- 8635 20 Aug, 2012 [facility] [place] [facility] [address] [id number] [place] [address]- 3650 24 Jul, 2012 [facility] [place] [facility] [address] [id number] [place] [address]- 6182 May, [facility] [place] [facility] [address] [id number], [place] [address]- 4117 May, [facility] [place] [facility] [address] [id number] [address]- 0231 May, [facility] [place] [facility] [address] [id number] [place] [address]- 0387 April, [facility] [place] [facility] [address] [facility] [id number] [address]- 8886 Mar, [facility] [place] [facility] [address] [id number] [place] [address]- 2661 Mar, [facility] [place] [facility] [address] [id number] [place] [address]- 3551 03 Mar, 2012 [facility] [address] [id number] [place] [address]- 3964 Jan, [facility] [address] [id number] [place] [address]- 0293 Jan, [facility] [address] [id number] [place] [address]- 0402 Jan, [facility] [address] [id number] [place] [address]- 0659 Dec, [facility] [address] [id number] [place] [address]- 8067 Dec, [facility] [address] [id number] [place] [address]- 3535 Dec, [facility] [address] [id number] [place] [address]- 7196 Dec, [facility] [address] [id number] [place] [address]- 1116 Nov, [facility] [address] [id number] [place] [address]- 2021 15 Nov, 2011 [facility] [address] [id number] [place] [address]- 5812 Nov, [facility] [address] [id number] [place] [address]- 2268 Oct, [facility] [address] [id number] [place] [address]- 5525 31 Sep, 2011 [facility] [place] [facility] [address] [id number] [place] [address]- 3124 26 Sep, 2011 [facility] [place] [facility] [address] [id number] [place] [address]- 2453 13 Sep, 2011 [facility] [address] [id number] [place] [address]- 4542 15 Nov, 2010 [facility] [place] [address] [facility] [id number] [address]- 6539 23 Oct, 2010 [facility] [place] [address] [facility] [id number] 6025 Oct, [facility] [place] [address] [facility] [id number] [address]- 1790 18 Oct, 2010 [facility] [place] [address] [facility] [id number] [address]- 0030 16 Oct, 2010 [facility] [place] [address] [facility] [id number] 4091 Sep, [facility] [place] [address] [facility] [id number], [place] [address]- 3879 April, [facility] [place] [address] [facility] [id number] [address]- 2711 Nov, [facility] [place] [address] [facility] [id number] [address]- 2432 24 Nov, 2009 [facility] [place] [address] [facility] [id number] [address]- 4017 Nov, [facility] [place] [address] [facility] [id number] [address]- 0428 Nov, [facility] [place] [address] [facility] [id number] [address]- [address] Nov, [facility], [place] [address] [facility] [id number][place] [address] Oct, [facility], [place] [address] [facility] [id number], [place] [address] Oct, [facility], [place] [address] [facility] [id number], [place] [address] 13 Sep, 2009 [facility] [place] [address] [facility] [id number], [place] [address] Jan, IMMUNIZATIONS No Known Immunizations SOCIAL HISTORY Never Assessed REASON FOR VISIT Care plan meeting PLAN OF CARE VITAL SIGNS MEDICATIONS Unknown Medications RESULTS No Results PROCEDURES No Known procedures INSTRUCTIONS MEDICATIONS ADMINISTERED No Known Medications MEDICAL (GENERAL) HISTORY Type Description Date Medical History Hypertension Medical History Heart disease CABG X3 Stress test 07/2015 Medical History Gastric ulcer Medical History Hyperlipidemia Medical History Headache syndrome Medical History Psychiatric disorders-depression/racing thoughts Medical History Depression Medical History At [facility] 04/2016 Started on Eliquis Medical History Anemia 04/2016 postsurgical hip fx Surgical History right hip replacement w/ Dr. Bruce 2011 Surgical History triple bypass surgery 2003 Surgical History S/P left hip IM Nail (Intertrechanteric hip fx) 04/28/16 Hospitalization History surgeries Hospitalization History Hypertension Hospitalization History ER for a concussion 11/24/15 Hospitalization History Intertrechanteric hip fx 04/27/16 Hospitalization History [facility] ([facility]patient [facility] times) Hx of 3 inpatient psych treatments in past in [place] oct 2016 [facility]
--- OUTSIDE RECORDS SUMMARY | 2019-02-11 14:15 | XMS REPORT ---
Author Author WOLF AGUIRRE [facility] Address [address] [place] [address] Care Team Providers Care Nuclear Medicine Specialist Name Role Phone WOLF AGUIRRE Unavailable PROBLEMS Type Condition ICD9-CM Code DND60-FN Code Onset Dates Condition Status SNOMED Code Problem Sundowning F05 Active 549335030 Problem Constipation, unspecified constipation type K59.00 Active 03219340 Problem Reactive depression F32.9 Active 08323129 Problem Vascular dementia with behavior disturbance F01.51 Active 117755634645987 Problem Insomnia, unspecified type G47.00 Active 700485474 Problem Generalized anxiety disorder F41.1 Active 55968660 Problem Other chronic pain G89.29 Active 06932990 Problem Severe episode of recurrent major depressive disorder, without psychotic features F33.2 Active 76983046 Problem Slow transit constipation K59.01 Active 39827974 Problem 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 Active 430720618 Problem Obsessive thinking F42.8 Active 69568323 Problem Failure to thrive in adult R62.7 Active 186324044 Problem Dysthymic disorder F34.1 Active 42845710 Problem Hypertension I10 Active 32529336 Problem Mood disorder F39 Active 69060107 Problem Irritable bowel syndrome with diarrhea K58.0 Active 713542715 Problem Oropharyngeal dysphagia R13.12 Active 07422609 Problem 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 Active 22962542 Problem Other chronic pain G89.29 Active 40928394 Problem Primary insomnia F51.01 Active 7865496 Problem Poor appetite R63.0 Active 69499646 Problem 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 [address] [address] Sep, [facility] [id number] [place] [address] 49207- 2792 Sep, [facility] [id number] [address] 2703 Sep, [facility] [address] [place] [id number] Sep, Generalized anxiety disorder F41.1 ; Obsessive thinking F42.8 [address] Mood disorder F39 [facility] [id number] [place] [address] 80946- 2153 Sep, [facility] [id number] [place] [address] 73880- 6180 Sep, [facility] [address] [place] [id number] Sep, [facility] [id number] [place] [address] 79975- 4349 Sep, [facility] [id number] [place] [address] 57240- 8892 Sep, [facility] [address] [place] [id number] Sep, Obsessive thinking F42.8 [facility] [id number] [place] [address] 96704- 3274 Sep, [facility] [id number] [place] [address] 98451- 0572 Sep, [facility] [id number] [place] [address] 41132- 7541 Aug, [facility] [id number] [place] [address] 08718- 5198 Aug, [facility] [address] [address] 3582 Aug, Positive urine drug screen [facility]82.5 [facility] [address] [place] [id number] Aug, [facility] [id number] [place] [address] 22018- 6386 Aug, [facility] [id number] [place] [address] 64917- 5968 Aug, [facility] [id number] [place] [address] 75451- 3483 Aug, Irritable bowel syndrome with diarrhea K58.0 [facility] [id number] [place] [address] 18734- 2839 Aug, [facility] [id number] [place] [address] 25154- 4710 Aug, Obsessive thinking F42.8 ; Insomnia, unspecified type G47.00 and Other chronic pain G89.[address] [facility] [address] [id number] Aug, Obsessive thinking F42.8 ; Irritable bowel syndrome with diarrhea K58.0 ; Pain in right foot M79.671 ; Pain of left foot M79.672 and Gastroesophageal reflux disease without esophagitis K21.9 [facility] [id number] [place] [address] 76134- 7753 Aug, [facility] [id number] [place] [address] 22744- 2624 Jul, [facility] [id number] [place] [address] 92668- 9324 Jun, [facility] [id number] [place] [address] 76670- 2679 Jun, [facility] [address] [id number] Jun, Left lower quadrant pain R10.32 and Left leg pain M79.605 [facility] [id number] [place] [address] 22392- 5087 Jun, [facility] [address] [place] [id number] Jun, Pain in left hip M25.552 ; Pain in right hip M25.551 and Primary insomnia F51.01 [facility] [address] [address] 6636 Jun, [facility] [address] [place] [id number] May, [facility] [id number] [place] [address] 56288- 9387 May, [facility] [id number] [place] [address] 77094- 1288 May, [facility] [address] [place] [id number] May, Mood disorder F39 [facility] [id number] [address] 1539 May, [facility] [id number] [address] 5097 April, [facility] [address] [place] [id number] April, Generalized anxiety disorder F41.1 ; Obsessive thinking F42.8 and Insomnia , unspecified type G47.00 [facility] [address] [address] April, [facility] [id number] [address] 8901 April, Rash of face R21 [facility] [address] [address] 5161 Mar, [facility] [id number] [address] 6854 Mar, [facility] [address] [address] Mar, [facility] [id number] [place] [address] 21567- 2838 Jan, [place] [id number] [place] [address] 68347- 9777 Jan, [facility] [address] [id number] Jan, Constipation, unspecified constipation type K59.00 and Other chronic pain G89.29 [place] [address] [address]- 8406 Jan, [facility] [address] [id number] Jan, Obsessive thinking F42.8 and Coarse tremors G25.2 [place] [address] [id number] Jan, [place] [address] [id number] Jan, [facility] [address] [id number] Jan, Generalized anxiety disorder F41.1 ; Obsessive thinking F42.8 ; Callus of foot L84 and 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 [place] [id number] [place] [address] 83477- 6069 Dec, Generalized anxiety disorder F41.1 and Severe episode of recurrent major depressive disorder, without psychotic features F33.2 [place] [id number] [place] [address] 98837- 1620 Nov, [place] [id number] [place] [address] 17717- 8645 Nov, [facility] [address] [id number] Nov, Oropharyngeal dysphagia R13.12 ; Generalized anxiety disorder F41.1 and 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 [place] [id number] [place] [address] 21588- 8461 Nov, [place] [address] [place] [id number] Nov, [facility] [address] [facility] [id number] [address] 254 Nov, [facility] [address] [address] 3616 Nov, [facility] [id number] [address]- 4926 Oct, Constipation, unspecified constipation type K59.00 and Mood disorder F39 [facility] [id number] [address]- 6012 Oct, [facility] [id number] [place] [address] [id number] Sep, [facility] [id number] [address] Sep, [facility] [id number] [place] [address] [id number] Sep, [facility] [id number] [id number] Sep, [facility] [id number] Sep, Generalized abdominal pain R10.84 [facility] [address] [address]- 2546 Sep, [facility] [id number] [place] [address] [id number] Sep, Generalized anxiety disorder F41.1 and Primary insomnia F51.01 [facility] [id number] [id number] Aug, [facility] [id number] [id number] Aug, Generalized anxiety disorder F41.1 [facility] [id number] [address]- 2546 Jul, [facility] [address] [place] [id number] Jul, Obsessive thinking F42.8 [facility] [address] [address]- 5744 Jul, Generalized anxiety disorder F41.1 and Irritable bowel syndrome with diarrhea K58.0 [facility] [id number] [address] Jul, Generalized anxiety disorder F41.1 [facility] [id number] [place] [address] [id number] Jun, Generalized anxiety disorder F41.1 [facility] [id number] [place] [address] 65643- 1719 May, [facility] [address] [id number] May, Generalized anxiety disorder F41.1 ; Irritable bowel syndrome with diarrhea K58.0 and Coarse tremors G25.2 [facility] [id number] [place] [address] 52670- 0759 April, [facility] [id number] [place] [address] 40160- 8540 April, [facility] [id number] [place] [address] 06188- 8550 April, [facility] [id number] [place] [address] 15188- 1750 Mar, [facility] [address] [place] [id number] Mar, Severe episode of recurrent major depressive disorder, without psychotic features F33.2 and Pain in left hip M25.552 [facility] [address] [place] [address] 40326- 8239 Mar, [facility] [id number] [place] [address] 56379- 6793 Mar, [facility] [address] [place] [address] 96002- 3604 Mar, [facility] [id number] [place] [address] 47621- 7664 Mar, Pain in right hip M25.551 and Self-care deficit in patient living alone R46.89 [facility] [id number] [place] [address] 66166 -2008 Jan, Other chronic pain G89.29 ; Pain in left hip M25.552 and Slow transit constipation K59.01 [facility] [id number] [place] [address] 06621- 1365 Jan, [facility] [id number] [place] [address] 51102- 8235 Dec, Other depression F32.89 ; Constipation, unspecified constipation type K59.00 and Insomnia, unspecified type G47.00 [place] [id number] [place] [address] 84325- 2592 Nov, Reactive depression F32.9 ; Chronic idiopathic constipation K59.04 ; Generalized anxiety disorder F41.1 ; Coarse tremors G25.2 ; Gastroesophageal reflux disease without esophagitis K21.9 ; Dysthymic disorder F34.1 ; Vitamin deficiency, unspecified E56.9 and Primary insomnia F51.01 [place] [address] [place] [address] 12206- 1302 Nov, [place] [id number] [place] [address] 01830- 7864 Nov, [place] [id number] [place] [address] 01461- 2213 Nov, [place] [id number] [place] [address] 87542- 3803 Nov, Reactive depression F32.9 ; Essential hypertension I10 ; Generalized anxiety disorder F41.1 ; 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 [id number] [place] [address] 89456- 2252 Oct, [facility] [id number] [place] [address] 63618- 6245 Oct, [facility] [id number] [place] [address] 98003- 8498 Oct, [facility] [id number] [place] [address] 48141- 3508 Oct, Generalized anxiety disorder F41.1 ; Poor appetite R63.0 ; Dehydration E86.0 and Failure to thrive in adult R62.7 [place] [id number] [place] [address] 20884- 5974 07 Oct, 2016 Generalized anxiety disorder F41.1 and Failure to thrive in adult R62.7 [place] [id number] [place] [address] 73079- 9348 Oct, [place] [id number] [place] [address] 14979- 4292 Oct, [facility] [id number] [place] [address] 65360 -8557 Sep, Vaginal discharge N89.8 and Acute cystitis with hematuria N30.01 [facility] [id number] [place] [address] 79404- 7219 Sep, [facility] [id number] [place] [address] 77363- 2742 Sep, [place] [id number] [place] [address] 27740- 2880 Sep, Dysthymic disorder F34.1 ; Acute vaginitis N76.0 ; Dysuria R30.0 and Vaginal yeast infection B37.3 [facility] [id number] [place] [address] 36230- 7811 Aug, [facility] [address] 60456- 3104 Aug, [facility] [id number] [place] [address] 46342 -1511 Aug, Foul smelling urine R82.90 ; Rapid heart rate R00.[address] [facility] [address] 60295- 4996 Aug, [facility] [address] 09321- 4307 Jul, Constipation, unspecified constipation type K59.00 ; Weak R53.1 ; Poor appetite R63.0 ; Coronary artery disease involving tanana heart without angina pectoris, unspecified vessel or lesion type I25.10 ; Fatigue, unspecified type R53.83 ; Urinary incontinence, unspecified type R32 and Insomnia, unspecified type G47.00 [facility] [id number] [place] [address] 02243- 0556 Jul, [facility] [id number] [place] [address] 35852- 0331 Jun, Dysuria R30.0 [facility] [id number] [place] [address] 48994- 0422 Jun, [facility] [id number] [place] [address] 48835- 0939 Jun, Urinary tract infection, site not specified N39.0 ; Acute vaginitis N76.0 and Diarrhea, unspecified type R19.7 [facility] [address] 46843- 0742 May, [facility] [id number] [place] [address] 63972- 8253 April, [facility] [address] [id number] April, Encounter for dental examination Z01.20 [facility] [id number] [place] [address] 90189- 9523 April, [facility] [id number] [place] [address] 46602- 6451 April, Tremor R25.1 and Episodic tension-type headache, not intractable G44.219 [facility] [id number] [place] [address] 68877- 7346 Mar, [facility] [id number] [place] [address] 32509- 0965 Jan, Mood disorder F39 [facility] [id number] [place] [address] 87386 -3503 Jan, [facility] [id number] [place] [address] 55408- 9150 Jan, [facility] [id number] [place] [address] 21491- 0161 Jan, [facility] [id number] [place] [address] 83197- 3969 Jan, [facility] [id number] [place] [address] 10723- 9677 Jan, [facility] [id number] [place] [address] 84468- 0631 Jan, [facility] [id number] [place] [address] 64667 -7216 Dec, Acute diarrhea R19.7 [facility] [id number] [place] [address] 36244- 1391 Dec, [facility] [id number] [place] [address] 16370- 9739 Dec, [facility] [id number] [place] [address] 40593- 8679 Dec, [facility] [address] [address] -[address]80 Dec, N&V (nausea and vomiting) R11.2 [facility] [id number] [place] [address] 37789- 6304 Dec, Generalized anxiety disorder F41.1 [facility] [id number] [place] [address] 89553- 0270 Dec, Generalized anxiety disorder F41.1 [facility] [id number] [place] [address] 84749- 9697 Nov, Post concussion syndrome F07.81 [facility] [address] 92850- 5385 Nov, Generalized anxiety disorder F41.1 [facility] [id number] [place] [address] 68626- 0298 Nov, [facility] [id number] [place] [address] 13173- 2445 Nov, Generalized anxiety disorder F41.1 [facility] [id number] [place] [address] [id number] Oct, Dental caries K02.9 [facility] [id number] [place] [address] 85488- 9500 Oct, [facility] [id number] [place] [address] [id number] Oct, Dental examination Z01.20 [facility] [id number] [place] [address] [id number] Oct, Encounter for dental examination Z01.20 [facility] [address] 00691- 2769 Oct, CAD (coronary artery disease) I25.10 [facility] [id number] [place] [address] 17227- 1921 Sep, Generalized anxiety disorder F41.1 [facility] [id number] [place] [address] 78612- 0558 Sep, [facility] [address] 53250- 6275 Sep, Rash and other nonspecific skin eruption R21 and Yeast vaginitis B37.3 [facility] [address] 51281- 6532 Sep, Generalized anxiety disorder F41.1 [facility] [address] 46574- 7690 Aug, Insect bites 919.[address] [facility] [address] 69734- 4856 Aug, Generalized anxiety disorder 300.02 [facility] [address] 04238- 8760 Aug, [facility] [address] 37262- 5429 Aug, [facility] [id number] [place] [address] 53720- 0477 Aug, Generalized anxiety disorder 300.02 ; No condition on [place] II V71.09 ; Heart problem 429.[address] [facility] [id number] [place] [address] Aug, [facility] [id number] [place] [address] Jul, [facility] [id number] [place] [address]- [address] Jul, [facility] [address] [address] Jul, [facility] [id number] [place] [address] Jul, [facility] [address] [address] Jul, [address] [facility] [id number] [place] [address] Jul, UTI (urinary tract infection) 599.0 [facility] [id number] [address] Jul, [facility] [id number] [place] [address] Jun, Dysthymia 300.[address] 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 [id number] [place] [address] 47[address]- [address] May, [facility] [id number] [place] [address]- [address] May, [facility] [id number] [place] [address]- [address] May, Unspecified breast screening V76.10 [facility] [id number] [place] [id number] May, Dental examination V72.2 [facility] [facility] [id number] [place] [address] April, [facility] [id number] [place] [address] 10337- 0183 April, [facility] [address] [id number] [place] [address] [id number] April, Dental examination V72.2 [facility] [id number] [place] [address] [id number] April, Dental examination V72.2 [facility] [id number] [place] [address] 45347- 5376 Mar, [facility] [id number] [place] [address] 20826- 6616 13 Mar, 2015 [facility] [place] [facility] [address] [id number] [place] [address]- 4730 25 Jan, 2015 [facility] [place] [facility] [address] [id number] [place] [address]- 3926 25 Jan, 2015 [facility] [place] [facility] [address] [id number] [place] [address]- 5204 18 Jan, 2015 [facility] [place] [facility] [address] [id number] [place] [address]- 3041 18 Jan, 2015 [facility] [place] [facility] [address] [id number] [place] [address]- 0163 16 Jan, 2015 [facility] [place] [facility] [address] [id number] [place] [address]- 4129 16 Jan, 2015 [facility] [place] [facility] [address] [id number] [place] [address]- 5654 Jan, [facility] [place] [facility] [address] [id number] [place] [address]- 9837 13 Jan, 2015 [facility] [place] [facility] [address] [id number] [place] [address]- 5260 Jan, [facility] [place] [facility] [address] [id number] [place] [address]- 3440 Jan, [facility] [place] [facility] [address] [id number] [place] [address]- 7793 Jan, [facility] [place] [facility] [address] [id number] [place] [address]- 8871 Jan, [facility] [place] [facility] [address] [id number] [place] [address]- 1889 Jan, [facility] [place] [facility] [address] [id number] [place] [address]- 0601 Jan, [facility] [place] [facility] [address] [id number] [place] [address]- 9815 Jan, [facility] [place] [facility] [address] [id number] [place] [address]- 0349 Jan, 2014 [facility] [place] [facility] [address] [id number] [place] [address]- 7406 Jan, 2014 [facility] [place] [facility] [address] [id number] [place] [address]- 1686 Jan, 2014 [facility] [place] [facility] [address] [id number] [place] [address]- 7256 Jan, 2014 [facility] [place] [facility] [address] [id number] [place] [address]- 8986 Jan, 2014 [facility] [place] [facility] [address] [id number] [place] [address]- 2311 Jan, 2014 [facility] [place] [facility] [address] [id number] [place] [address]- 1151 Jan, 2014 [facility] [place] [facility] [address] [id number] [place] [address]- 7333 Dec, [facility] [place] [facility] [address] [id number] [place] [address]- 2483 Dec, [facility] [place] [facility] [address] [id number] [place] [address]- 6928 Dec, [facility] [place] [facility] [address] [id number] [place] [address]- 0077 Dec, [facility] [place] [facility] [address] [id number] [place] [address]- 4122 Nov, [facility] [place] [facility] [address] [id number] [place] [address]- 7723 Nov, [facility] [place] [facility] [address] [id number] [place] [address]- 2545 Nov, [facility] [place] [facility] [address] [id number] [place] [address]- 7705 Nov, [facility] [place] [facility] [address] [id number] [place] [address]- 3425 Nov, [facility] [place] [facility] [address] [id number] [place] [address]- 5897 Nov, [facility] [place] [facility] [address] [id number] [place] [address]- 9717 Nov, [facility] [place] [facility] [address] [id number] [place] [address]- 8662 Oct, [facility] [place] [facility] [address] [id number] [place] [address]- 2180 Oct, [facility] [place] [facility] [address] [id number] [place] [address]- 0070 Oct, [facility] [place] [facility] [address] [id number] [place] [address]- 2863 Oct, [facility] [place] [facility] [address] [id number] [place] [address]- 2166 Oct, [facility] [place] [facility] [address] [id number] [place] [address]- 9676 Oct, [facility] [place] [facility] [address] [id number] [place] [address]- 8789 Oct, [facility] [place] [facility] [address] [id number] [place] [address]- 5207 Oct, [facility] [place] [facility] [address] [id number] [place] [address]- 5416 Oct, [facility] [place] [facility] [address] [id number] [place] [address]- 0705 Oct, [facility] [place] [facility] [address] [id number] [place] [address]- 3459 Oct, [facility] [place] [facility] [address] [id number] [place] [address]- 3604 Oct, [facility] [place] [facility] [address] [id number] [place] [address]- 5328 Sep, [facility] [place] [facility] [address] [id number] [place] [address]- 9043 Sep, [facility] [place] [facility] [address] [id number] [place] [address]- 6129 Sep, [facility] [place] [facility] [address] [id number] [place] [address]- 9636 Sep, [facility] [place] [facility] [address] [id number] [place] [address]- 0129 Jul, [facility] [place] [facility] [address] [id number] [place] [address]- 5238 Jul, [facility] [place] [facility] [address] [id number] [place] [address]- 5249 Jul, [facility] [place] [facility] [address] [id number] [place] [address]- 1918 Jul, [facility] [place] [facility] [address] [id number] [place] [address]- 0323 Jun, [facility] [place] [facility] [address] [id number] [place] [address]- 8479 Jun, [facility] [place] [facility] [address] [id number] [place] [address]- 4548 Jun, [facility] [place] [facility] [address] [id number] [place] [address]- 6049 Jun, [facility] [place] [facility] [address] [id number] [place] [address]- 9253 May, [facility] [place] [facility] [address] [id number] [place] [address]- 6335 May, [facility] [place] [facility] [address] [id number] [place] [address]- 7516 April, [facility] [place] [facility] [address] [id number] [place] [address]- 8411 April, [facility] [place] [facility] [address] [id number] [place] [address]- 6626 April, [facility] [address] [id number] [place] [address]- 7358 April, [facility] [place] [facility] [address] [id number] [place] [address]- 3183 April, [facility] [place] [facility] [address] [id number] [place] [address]- 8732 April, [facility] [place] [facility] [address] [id number] [place] [address]- 6486 April, [facility] [place] [facility] [address] [id number] [place] [address]- 9452 April, [facility] [place] [facility] [address] [id number] [place] [address]- 5547 April, [facility] [place] [facility] [address] [id number] [place] [address]- 9638 Mar, [facility] [place] [facility] [address] [id number] [place] [address]- 9997 Mar, [facility] [place] [facility] [address] [id number] [place] [address]- 1391 Mar, [facility] [place] [facility] [address] [id number] [place] [address]- 3544 Mar, [facility] [place] [facility] [address] [id number] [place] [address]- 9225 Jan, [facility] [place] [facility] [address] [id number] [place] [address]- 0231 Jan, [facility] [place] [facility] [address] [id number] [place] [address]- 0478 Jan, [facility] [place] [facility] [address] [id number] [place] [address]- 6948 Jan, [facility] [place] [facility] [address] [id number] [place] 2531 Jan, [facility] [place] [facility] [address] [id number] [place] [address]- 8280 Jan, [facility] [address] [id number] [place] [address]- 0434 Jan, [facility] [place] [facility] [address] [id number] [place] [address]- 8425 Jan, [facility] [place] [facility] [address] [id number] [place] [address]- 6336 Jan, [facility] [place] [facility] [address] [id number] [place] [address]- 0594 Jan, [facility] [place] [facility] [address] [id number] [place] [address]- 1354 Jan, [facility] [place] [facility] [address] [id number] [place] [address]- 6028 Jan, [facility] [place] [facility] [address] [id number] [place] [address]- 8137 Dec, [facility] [place] [facility] [address] [id number] [place] [address]- 2002 Dec, [facility] [place] [facility] [address] [id number] [place] [address]- 1475 Dec, [facility] [place] [facility] [address] [facility] [id number] [place] [address]- 2154 Dec, [facility] [place] [facility] [address] [id number] [place] [address]- 8489 Nov, [facility] [place] [facility] [address] [id number] [place] [address]- 1306 Nov, [facility] [place] [facility] [address] [id number] [place] [address]- 7475 Nov, [facility] [place] [facility] [address] [id number] [place] [address]- 9567 Nov, [facility] [place] [facility] [address] [id number] [place] [address]- 1050 Oct, [facility] [place] [facility] [address] [id number] [place] [address]- 0870 Oct, [facility] [place] [facility] [address] [id number] [place] [address]- 4829 Sep, [facility] [place] [facility] [address] [id number] [place] [address]- 4102 Sep, [facility] [place] [facility] [address] [id number] [place] [address]- 1527 Jul, [facility] [place] [facility] [address] [id number] [place] [address]- 2183 Jul, [facility] [place] [facility] [address] [id number] [place] [address]- 6538 Jun, [facility] [place] [facility] [address] [id number] [place] [address]- 5239 Jun, [facility] [place] [facility] [address] [id number] [place] [address]- 4932 Jun, [facility] [place] [facility] [address] [id number] [place] [address]- 1888 May, [facility] [place] [facility] [address] [id number] [place] [address]- 6703 May, [facility] [place] [facility] [address] [id number] [place] [address]- 7468 May, [facility] [place] [facility] [address] [id number] [place] [address]- 4166 May, [facility] [place] [facility] [address] [id number] [place] [address]- 1306 May, [facility] [place] [facility] [address] [id number] [place] [address]- 1132 April, [facility] [place] [facility] [address] [id number] [place] [address]- 7026 April, [facility] [place] [facility] [address] [id number] [place] [address]- 2306 April, [facility] [address] [id number] [place] [address]- 9185 April, [facility] [address] [id number] [place] [address]- 8105 April, [facility] [address] [facility] [id number] [place] [address]- 1424 April, [facility] [address] [id number] [place] [address]- 6415 Mar, [facility] [address] [id number] [place] [address]- 7170 Mar, [facility] [address] [facility] [id number] [place] [address]- 8610 Jan, [facility] [address] [id number] [place] [address]- 5253 Jan, [facility] [address] [id number] [place] [address]- 2658 Jan, [facility] [address] [id number] [place] [address]- 5065 Jan, [facility] [address] [facility] [id number] [place] [address]- 6706 Jan, [facility] [address] [id number] [place] [address]- 7725 Jan, [facility] [place] [facility] [address] [id number] [place] [address]- 1853 Jan, [facility] [place] [facility] [address] [id number] [place] [address]- 6288 Jan, [facility] [place] [facility] [address] [id number] [place] [address]- 7951 Jan, [facility] [place] [facility] [address] [facility] [id number] [place] 2552 Jan, [facility] [place] [facility] [address] [id number] [place] [address]- 1262 Jan, [facility] [address] [id number] [place] [address]- 6700 Dec, [facility] [place] [facility] [address] [id number] [place] [address]- 4376 Nov, [facility] [place] [facility] [address] [id number] [place] [address]- 6856 Nov, [facility] [place] [facility] [address] [id number] [place] [address]- 4092 Nov, [facility] [place] [facility] [address] [id number] [place] [address]- 5296 Nov, [facility] [address] [id number] [place] [address]- 9415 Nov, [facility] [address] [id number] [place] [address]- 4792 Nov, [facility] [place] [facility] [address] [id number] [place] [address]- 2106 Nov, [facility] [place] [facility] [address] [id number] [place] [address]- 0639 Nov, [facility] [place] [facility] [address] [id number] [place] [address]- 0211 Nov, [facility] [place] [facility] [address] [id number] [place] [address]- 5423 Nov, [facility] [place] [facility] [address] [id number] [place] [address]- 7327 Nov, [facility] [place] [facility] [address] [id number] [place] [address]- 6058 Nov, [facility] [place] [facility] [address] [id number] [place] [address]- 4764 Nov, [facility] [place] [facility] [address] [id number] [place] [address]- 0239 Oct, [facility] [place] [facility] [address] [id number] [place] [address]- 8431 Oct, [facility] [place] [facility] [address] [id number] [place] [address]- 1826 Oct, [facility] [place] [facility] [address] [facility] [id number] [place] [address]- 8876 Sep, [facility] [place] [facility] [address] [id number] [place] [address]- 8896 Sep, [facility] [place] [facility] [address] [id number] [place] [address]- 4725 Sep, [facility] [place] [facility] [address] [id number] [place] [address]- 6594 Sep, [facility] [place] [facility] [address] [id number] [place] [address]- 1809 Aug, [facility] [place] [facility] [address] [id number] [place] [address]- 3489 20 Aug, 2012 [facility] [place] [facility] [address] [id number] [place] [address]- 1505 24 Jul, 2012 [facility] [place] [facility] [address] [id number] [place] [address]- 7054 May, [facility] [place] [facility] [address] [id number] [place] [address]- 5868 May, [facility] [place] [facility] [address] [id number] [place] [address]- 1618 May, [facility] [place] [facility] [address] [id number] [place] [address]- 8160 April, [facility] [place] [facility] [address] [facility] [id number] [place] [address]- 8976 Mar, [facility] [place] [facility] [address] [id number] [place] [address]- 5206 Mar, [facility] [place] [facility] [address] [id number] [place] [address]- 3406 03 Mar, 2012 [facility] [address] [id number] [place] [address]- 0960 Jan, [facility] [address] [id number] [place] [address]- 6826 Jan, [facility] [address] [id number] [place] [address]- 1884 Jan, [facility] [address] [id number] [place] [address]- 0216 Dec, [facility] [address] [id number] [place] [address]- 2877 Dec, [facility] [address] [id number] [place] [address]- 5755 Dec, [facility] [address] [id number] [place] [address]- 5562 Dec, [facility] [address] [id number] [place] [address]- 0038 Nov, [facility] [address] [id number] [place] [address]- 6064 15 Nov, 2011 [facility] [address] [id number] [place] [address]- 4056 Nov, [facility] [address] [id number] [place] [address]- 4833 Oct, [facility] [address] [id number] [place] [address]- 0196 31 Sep, 2011 [facility] [place] [facility] [address] [id number] [place] [address]- 6275 26 Sep, 2011 [facility] [place] [facility] [address] [id number] [place] [address]- 6304 13 Sep, 2011 [facility] [address] [id number] [place] [address]- 8336 [address], [address] [facility] [address] [facility] [id number] [place] [address]- 7851 [address], [address] [facility] [address] [facility] [id number] [place] [address]- 9211 Oct, [facility] [address] [facility] [id number] [place] [address]- 6594 [address], [address] [facility] [address] [facility] [id number] [place] [address]- 0137 [address], [address] [facility] [address] [facility] [id number] [place] [address]- 2493 Sep, [facility] [address] [facility] [id number] [address] 5369 April, [facility] [address] [facility] [id number] [address]- 7184 Nov, [facility] [address] [facility] [id number] [address] Nov, [facility] [address] [facility] [id number] [address] Nov, [facility] [address] [id number] [address] Nov, [facility] [address] [id number] [address] Nov, [facility] [address] [facility] [id number] [address] Oct, [facility] [address] [facility] [id number] [place] [address] [place], [facility] [address] [facility] [id number] [place] [address] 13 Sep, [facility] [address] [facility] [id number] [place] [address] Jan, IMMUNIZATIONS No Known Immunizations SOCIAL HISTORY Never Assessed REASON FOR VISIT sarah psych PLAN OF CARE VITAL SIGNS MEDICATIONS [...] History Depression Medical History At [facility] 04/2016 Started on Eliquis Medical History Anemia 04/2016 postsurgical hip fx Surgical History right hip replacement w/ Dr. Bruce 2011 Surgical History triple bypass surgery 2003 Surgical History S/P left hip IM Nail (Intertrechanteric hip fx) 04/28/16 Hospitalization History surgeries Hospitalization History Hypertension Hospitalization History ER for a concussion 11/24/15 Hospitalization History Intertrechanteric hip fx 04/27/16 Hospitalization History [facility] (inpatient [facility] 2 times) Hx of 3 inpatient psych treatments in past in [place] oct 2016 [facility]
--- OUTSIDE RECORDS SUMMARY | 2019-02-11 14:15 | XMS REPORT ---
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 Name Role Phone WOLF AGUIRRE Unavailable PROBLEMS Type Condition ICD9-CM Code TDA55-YS Code Onset Dates Condition Status SNOMED Code Problem Sundowning F05 Active 991768379 Problem Constipation, unspecified constipation type K59.00 Active 81282037 Problem Reactive depression F32.9 Active 18032414 Problem Vascular dementia with behavior disturbance F01.51 Active 914517006318119 Problem Insomnia, unspecified type G47.00 Active 534592447 Problem Generalized anxiety disorder F41.1 Active 80451946 Problem Other chronic pain G89.29 Active 74493661 Problem Severe episode of recurrent major depressive disorder, without psychotic features F33.2 Active 87268706 Problem Slow transit constipation K59.01 Active 08694504 Problem 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 Active 852594167 Problem Obsessive thinking F42.8 Active 52305569 Problem Failure to thrive in adult R62.7 Active 664494088 Problem Dysthymic disorder F34.1 Active 39663980 Problem Hypertension I10 Active 50272532 Problem Mood disorder F39 Active 25519522 Problem Irritable bowel syndrome with diarrhea K58.0 Active 450540163 Problem Oropharyngeal dysphagia R13.12 Active 68666884 Problem 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 Active 93571100 Problem Other chronic pain G89.29 Active 48919478 Problem Primary insomnia F51.01 Active 8826044 Problem Poor appetite R63.0 Active 73788933 Problem Atherosclerotic heart disease of [place] 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 Active 009676624154344 Problem Iron deficiency anemia secondary to inadequate dietary iron intake D50.8 Active 302818502 Problem Coarse tremors G25.2 Active 86137728 Problem Gastroesophageal reflux disease without esophagitis K21.9 Active 430408544 Problem Essential hypertension I10 Active 62749043 ALLERGIES No Information ENCOUNTERS Encounter Location Date Diagnosis [facility] [address] [place] [id number] Sep, [facility] [id number] [place] [address] 67771- 5012 Sep, [facility] [id number] [place] [address] 87758- 0827 Sep, [facility] [address] [place] [id number] Sep, Obsessive thinking F42.8 [facility] [id number] [place] [address] 55772- 8253 Sep, [facility] [id number] [place] [address] 88781- 6993 Sep, [facility] [id number] [place] [address] 97917- 6375 Aug, [facility] [id number] [place] [address] 13703- 1751 Aug, [facility] [id number] [place] [address] 01046- 5690 Aug, Positive urine drug screen R82.[address] [id number] Aug, [facility] [id number] [place] [address] 77295- 1392 Aug, [facility] [id number] [place] [address] 81157- 5979 Aug, [facility] [id number] [place] [address] 15843- 7650 17 Aug, 2018 Irritable bowel syndrome with diarrhea K58.0 [facility] [id number] [place] [address] 44924- 5663 Aug, [facility] [id number] [place] [address] 24241- 7728 Aug, Obsessive thinking F42.8 ; Insomnia, unspecified type G47.00 and Other chronic pain G89.29 [facility] [address] [id number] Aug, Obsessive thinking F42.8 ; Irritable bowel syndrome with diarrhea K58.0 ; Pain in right foot M79.671 ; Pain of left foot M79.672 and Gastroesophageal reflux disease without esophagitis K21.9 [facility] [id number] [place] [address] 10940- 8577 Aug, [facility] [id number] [place] [address] 67918- 2856 Jul, [facility] [id number] [place] [address] 85894- 8077 Jun, [facility] [id number] [place] [address] 12534- 5252 Jun, [facility] [address] [id number] Jun, Left lower quadrant pain R10.32 and Left leg pain M79.605 [facility] [id number] [place] [address] 81373- 7676 Jun, [facility] [address] [id number] Jun, Pain in left hip M25.552 ; Pain in right hip M25.551 and Primary insomnia F51.01 [facility] [id number] [place] [address] 76154- 2696 Jun, [facility] [address] [id number] May, [facility] [id number] [place] [address] 92602- 8819 May, [facility] [id number] [place] [address] 03730- 0736 May, [facility] [address] [place] [id number] May, Mood disorder F39 [facility] [address] [address]- 0237 May, [facility] [id number] [place] [address] 90699- 6398 April, [facility] [address] [id number] April, Generalized anxiety disorder F41.1 ; Obsessive thinking F42.8 and Insomnia , unspecified type G47.00 [facility] [id number] [place] [address] 13724- 3778 April, [facility] [id number] [place] [address] 46370- 4418 April, Rash of face R21 [facility] [id number] [place] [address] 95576- 7607 Mar, [facility] [id number] [place] [address] 69913- 1746 Mar, [facility] [id number] [place] [address] 05277- 1838 Mar, [facility] [id number] [place] [address] 05852- 4219 Jan, [facility] [id number] [place] [address] 71975- 8353 Jan, [facility] [address] [id number] Jan, Constipation, unspecified constipation type K59.00 and Other chronic pain G89.29 [facility] [address] [place] [address] 98597- 0809 Jan, [facility] [address] [id number] Jan, Obsessive thinking F42.8 and Coarse tremors G25.2 [facility] [id number] [id number] Jan, [facility] [id number] [place] [id number] Jan, [facility] [address] [id number] Jan, Generalized anxiety disorder F41.1 ; Obsessive thinking F42.8 ; Callus of foot L84 and 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 [facility] [id number] [place] [address] 66768- 1836 Dec, Generalized anxiety disorder F41.1 and Severe episode of recurrent major depressive disorder, without psychotic features F33.2 [facility] [id number] [place] [address] 89656- 8350 Nov, [facility] [id number] [place] [address] 70677- 7386 Nov, [facility] [address] [id number] Nov, Oropharyngeal dysphagia R13.12 ; Generalized anxiety disorder F41.1 and 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 [facility] [id number] [place] [address] 39283- 1042 Nov, [facility] [address] [id number] Nov, [facility] [id number] [place] [address] 35297- 8441 Nov, [facility] [id number] [place] [address] 32245- 2050 Nov, [facility] [id number] [place] [address] 89226- 6994 Oct, Constipation, unspecified constipation type K59.00 and Mood disorder F39 [facility] [id number] [place] [address] 02011- 0866 Oct, [facility] [id number] [place] [id number] Sep, [facility] [id number] [place] [id number] Sep, [facility] [id number] [id number] Sep, [facility] [id number] [id number] Sep, [facility] [address] [id number] Sep, Generalized abdominal pain R10.84 [facility] [address] [address]- 8196 Sep, [facility] [id number] [id number] Sep, Generalized anxiety disorder F41.1 and Primary insomnia F51.01 [facility] [id number] [id number] Aug, [facility] [id number] [id number] Aug, Generalized anxiety disorder F41.1 [facility] [id number] [id number]- 4175 Jul, [facility] [address] [id number] Jul, Obsessive thinking F42.8 [facility] [id number] [address]- 2451 Jul, Generalized anxiety disorder F41.1 and Irritable bowel syndrome with diarrhea K58.0 [facility] [id number] [id number] Jul, Generalized anxiety disorder F41.1 [facility] [id number] [id number] Jun, Generalized anxiety disorder F41.1 [facility] [id number] [address]- 4847 May, [facility] [address] [id number] May, Generalized anxiety disorder F41.1 ; Irritable bowel syndrome with diarrhea K58.0 and Coarse tremors G25.2 [facility] [id number] [place] [address] 45860- 6267 April, [facility] [id number] [place] [address] 66949- 3993 April, [facility] [id number] [place] [address] 43359- 1578 April, [facility] [id number] [place] [address] 28837- 6679 Mar, [facility] [address] [id number] Mar, Severe episode of recurrent major depressive disorder, without psychotic features F33.2 and Pain in left hip M25.552 [facility] [id number] [place] [address] 85817- 8579 Mar, [facility] [id number] [place] [address] 50507- 7954 Mar, [facility] [id number] [place] [address] 58821- 3079 Mar, [facility] [id number] [place] [address] 20414- 1377 Mar, Pain in right hip M25.551 and Self-care deficit in patient living alone R46.89 [facility] [id number] [place] [address] 71625 -8274 Jan, Other chronic pain G89.29 ; Pain in left hip M25.552 and Slow transit constipation K59.01 [facility] [id number] [place] [address] 23808- 7885 Jan, [facility] [id number] [place] [address] 95158- 7848 Dec, Other depression F32.89 ; Constipation, unspecified constipation type K59.00 and Insomnia, unspecified type G47.00 [facility] [facility] [id number] [place] [address] 37278- 2629 Nov, Reactive depression F32.9 ; Chronic idiopathic constipation K59.04 ; Generalized anxiety disorder F41.1 ; Coarse tremors G25.2 ; Gastroesophageal reflux disease without esophagitis K21.9 ; Dysthymic disorder F34.1 ; Vitamin deficiency, unspecified E56.9 and Primary insomnia F51.01 [facility] [id number] [place] [address] 64272- 2760 Nov, [facility] [id number] [place] [address] 73868- 4260 Nov, [facility] [id number] [place] [address] 54461- 9477 Nov, [facility] [id number] [place] [address] 51095- 7072 Nov, Reactive depression F32.9 ; Essential hypertension I10 ; Generalized anxiety disorder F41.1 ; Atherosclerotic heart disease of [place] 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 ; Pain in right hip M25.551 ; Other chronic pain G89.29 ; Chronic idiopathic constipation K59.04 ; Primary insomnia F51.01 ; Coarse tremors G25.2 ; Gastroesophageal reflux disease without esophagitis K21.9 ; Iron deficiency anemia secondary to inadequate dietary iron intake D50.8 and Vitamin deficiency, unspecified E56.9 [facility] [id number] [place] [address] 09212- 7296 Oct, [facility] [id number] [place] [address] 98056- 8018 Oct, [facility] [id number] [place] [address] 30473- 9841 Oct, [facility] [id number] [place] [address] 48984- 4802 Oct, Generalized anxiety disorder F41.1 ; Poor appetite R63.0 ; Dehydration E86.0 and Failure to thrive in adult R62.7 [facility] [id number] [place] [address] 77869- 9984 Oct, Generalized anxiety disorder F41.1 and Failure to thrive in adult R62.7 [facility] [id number] [place] [address] 66654- 1697 Oct, [facility] [id number] [place] [address] 38444- 0699 Oct, [facility] [address] 61888 -9551 Sep, Vaginal discharge N89.8 and Acute cystitis with hematuria N30.01 [facility] [address] 49786- 5373 Sep, [facility] [address] 53684- 9735 Sep, [facility] [id number] [place] [address] 98563- 8621 Sep, Dysthymic disorder F34.1 ; Acute vaginitis N76.0 ; Dysuria R30.0 and Vaginal yeast infection B37.3 [facility] [id number] [place] [address] 47131- 2395 Aug, [facility] [id number] [place] [address] 67919- 6148 Aug, [facility] [id number] [place] [address] 91112 -2325 Aug, Foul smelling urine R82.90 ; Rapid heart rate R00.0 and Flatulence R14.3 [facility] [id number] [place] [address] 60993- 6832 Aug, [facility] [id number] [place] [address] 28438- 4118 Jul, Constipation, unspecified constipation type K59.00 ; Weak R53.1 ; Poor appetite R63.0 ; Coronary artery disease involving [place] heart without angina pectoris, unspecified vessel or lesion type I25.10 ; Fatigue, unspecified type R53.83 ; Urinary incontinence, unspecified type R32 and Insomnia, unspecified type G47.00 [place] [id number] [place] [address] 92565- 4635 Jul, [place] [address] 33499- 9093 Jun, Dysuria R30.0 [place] [address] 06013- 3770 Jun, [place] [facility] [address] 05076- 5513 Jun, Urinary tract infection, site not specified N39.0 ; Acute vaginitis N76.0 and Diarrhea, unspecified type R19.7 [place] [facility] [address] 01746- 7494 May, [facility] [address] 59542- 5637 April, [facility] [address] [id number] April, Encounter for dental examination Z01.20 [place] [address] 36738- 8310 April, [place] [address] 49478- 9381 April, Tremor R25.1 and Episodic tension-type headache, not intractable G44.219 [place] [address] 64339- 3958 Mar, [place] [address] 66561- 5707 Jan, Mood disorder F39 [facility] [id number] [place] [address] 01113 -5016 Jan, [place] [address], [place] [address]- 4502 Jan, [facility] [address], [place] [address]- 2285 Jan, [facility] [address], [place] [address]- 9874 Jan, [facility] [id number] [place] [address] 43624- 4525 Jan, [facility] [id number] [place] [address] 24866- 5743 Jan, [facility] [id number] [place] [address] 35187 -6280 Dec, Acute diarrhea R19.7 [facility] [id number] [place] [address] 76683- 3132 Dec, [facility] [id number] [place] [address] 91754- 8932 Dec, [facility] [id number] [place] [address] 52866- 0774 Dec, [facility] [id number] [place] [address] 58300 -1264 Dec, N&V (nausea and vomiting) R11.2 [facility] [id number] [place] [address] 35240- 2631 Dec, Generalized anxiety disorder F41.1 [facility] [address], [place] [address]- 2383 Dec, Generalized anxiety disorder F41.1 [facility] [id number] [place] [address] 46671- 8277 Nov, Post concussion syndrome F07.81 [facility] [address], [place] [address]- 9332 Nov, Generalized anxiety disorder F41.1 [facility] [id number] [place] [address] 378800- 9446 Nov, [facility] [address] 40000- 2683 Nov, Generalized anxiety disorder F41.1 [facility] [id number] [place] [address] [id number] Oct, Dental caries K02.9 [facility] [address] 13074- 6717 Oct, [facility] [id number] [place] [address] [id number] Oct, Dental examination Z01.20 [facility] [address] [id number] 10 Oct, 2015 Encounter for dental examination Z01.20 [place] [id number] [place] [address] 67119- 4466 Oct, CAD (coronary artery disease) I25.10 [facility] [id number] [place] [address] 71327- 0333 Sep, Generalized anxiety disorder F41.1 [place] [id number] [place] [address] 45598- 7621 Sep, [facility] [id number] [place] [address] 31587- 5329 Sep, Rash and other nonspecific skin eruption R21 and Yeast vaginitis B37.3 [facility] [id number] [place] [address] 30512- 4416 Sep, Generalized anxiety disorder F41.1 [facility] [address] 09269- 7959 Aug, Insect bites 919.4 and Hemorrhoids 455.6 [facility] [id number] [place] [address] 75353- 6416 Aug, Generalized anxiety disorder 300.02 [facility] [id number], [place] [address]- 5692 08 Aug, 2015 [facility] [id number] [place] [address] 32058- 5076 Aug, [facility] [address] [place] [address] 58565- 9523 Aug, Generalized anxiety disorder 300.02 ; No condition on [place] II V71.09 ; Heart problem 429.9 and Hypertension 401.9 [facility] [id number] [address]- 4249 Aug, [facility] [id number] [place] [address] 42037- 4973 Jul, [facility] [id number] [place] [address] 55960- 1109 Jul, [facility] [id number] [place] [address] 92215- 8775 Jul, [facility] [id number] [place] [address] 29154- 5731 Jul, [facility] [id number] [place] [address] 52738- 9943 Jul, Rash 782.1 [facility] [id number] [place] [address] 13158- 9720 Jul, UTI (urinary tract infection) 599.0 [facility] [address] [address]- 9835 Jul, [facility] [address], [place] [address]- 4156 Jun, Dysthymia 300.4 and Anxiety 300.00 [facility] [address], [place] [address]- 7155 Jun, 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 [facility] [id number] [place] [address] 20950- 7611 May, [facility] [address] [id number] [address] 2546 May, [facility] [address] [facility] [id number], [place] [address] May, Unspecified breast screening V76.10 [facility] [address] [id number][place] [id number] May, Dental examination V72.2 [facility] [address] [id number][place] [address] April, [facility] [address] [id number], [place] [address] April, [facility] [id number] [id number] April, Dental examination V72.2 [facility] [id number] [id number] April, Dental examination V72.2 [facility] [address] [id number], [place] [address] Mar, [facility] [address] [id number], [place] [address] Mar, [facility] [address] [facility] [address] [facility] [id number], [place] [address] Jan, [facility] [address] [facility] [address] [facility] [id number] [address] Jan, [facility] [address] [id number], [place] [address] Jan, [facility] [address] [id number], [place] [address] Jan, [facility] [address] [facility] [address] [facility] [id number][place] [address]46 Jan, [facility] [address] [facility] [address] [facility] [id number][place] [address] Jan, [facility] [address] [id number] [place] [address] 13 Jan, 2015 [facility] [place] [facility] [address] [id number] [place] [address] Jan, 2014 [facility] [place] [facility] [address] [id number] [place] [address] Jan, 2014 [facility] [place] [facility] [address] [id number] [place] [address] 9006 Jan, 2014 [facility] [place] [facility] [address] [id number] [place] [address] 3935 Jan, [facility] [place] [facility] [address] [id number] [place] [address]- 8530 Jan, [facility] [place] [facility] [address] [facility] [address] [facility] [id number] [place] [address]- 7816 Jan, [facility] [place] [facility] [address] [id number] [place] [address]- 3411 Jan, [facility] [place] [facility] [address] [id number] [place] [address]- 3041 Jan, [facility] [place] [facility] [address] [id number] [place] [address]- 5680 Jan, 2014 [facility] [place] [facility] [address] [facility] [id number] [place] [address]- 5294 Jan, 2014 [facility] [place] [facility] [address] [id number] [place] [address]- 7346 Jan, 2014 [facility] [place] [facility] [address] [id number] [place] [address]- 2623 Jan, [facility] [place] [facility] [address] [id number] [place] [address]- 4679 Jan, [facility] [place] [facility] [address] [facility] [id number] [place] [address]- 3575 Jan, 2014 [facility] [place] [facility] [address] [id number] [place] [address]- 1445 Jan, [facility] [place] [facility] [address] [id number] [place] [address]- 6608 Dec, [facility] [place] [facility] [address] [id number] [place] [address]- 5480 Dec, [facility] [place] [facility] [address] [id number] [place] [address]- 2292 Dec, [facility] [place] [facility] [address] [id number] [place] [address]- 7201 Dec, [facility] [place] [facility] [address] [id number] [place] [address]- 4973 Nov, [facility] [place] [facility] [address] [id number] [place] [address] 1949 Nov, [facility] [place] [facility] [address] [id number] [place] [address]- 5186 Nov, [facility] [place] [facility] [address] [id number] [place] [address]- 7584 Nov, [facility] [place] [facility] [address] [id number] [place] [address]- 4942 Nov, [facility] [place] [facility] [address] [id number] [place] [address]- 5896 Nov, [facility] [place] [facility] [address] [id number] [place] [address]- 3544 Nov, [facility] [place] [facility] [address] [id number] [place] [address]- 9819 Oct, [facility] [place] [facility] [address] [id number] [place] [address]- 8337 Oct, [facility] [place] [facility] [address] [id number] [place] Oct, [facility] [place] [facility] [address] [id number] [place] [address]- 5779 Oct, [facility] [place] [facility] [address] [id number] [place] [address]- 6558 Oct, [facility] [place] [facility] [address] [id number] [place] [address]- 0195 Oct, [facility] [place] [facility] [address] [id number] [place] [address]- 6459 Oct, [facility] [place] [facility] [address] [id number] [place] [address]- 3880 Oct, [facility] [place] [facility] [address] [id number] [place] [address]- 9179 Oct, [facility] [place] [facility] [address] [id number] [place] [address]- 5467 Oct, [facility] [place] [facility] [address] [id number] [place] [address]- 2457 Oct, [facility] [place] [facility] [address] [id number] [place] [address]- 4280 Oct, [facility] [place] [facility] [address] [id number] [place] [address]- 6559 Sep, [facility] [place] [facility] [address] [id number] [place] [address]- 2399 Sep, [facility] [place] [facility] [address] [id number] [place] [address]- 0510 Sep, [facility] [place] [facility] [address] [id number] [place] [address]- 0517 Sep, [facility] [place] [facility] [address] [id number] [place] [address]- 9028 Jul, [facility] [place] [facility] [address] [id number] [place] [address]- 3003 Jul, [facility] [place] [facility] [address] [id number] [place] [address]- 5154 Jul, [facility] [place] [facility] [address] [id number] [place] [address]- 6088 Jul, [facility] [place] [facility] [address] [id number] [place] [address] Jun, [facility] [place] [facility] [address] [id number] [place] [address]- 2237 Jun, [facility] [place] [facility] [address] [id number] [place] [address]- 8874 Jun, [facility] [place] [facility] [address] [id number] [place] [address]- 9869 Jun, [facility] [place] [facility] [address] [id number] [place] [address]- 6421 May, [facility] [place] [facility] [address] [id number] [place] [address]- 5505 May, [facility] [place] [facility] [address] [id number] [place] [address]- 5773 April, [facility] [place] [facility] [address] [id number] [place] [address]- 1389 April, [facility] [place] [facility] [address] [id number] [place] [address]- 0241 April, [facility] [place] [facility] [address] [id number] [place] [address]- 6775 April, [facility] [place] [facility] [address] [id number] [place] [address]- 1491 April, [facility] [place] [facility] [address] [id number] [place] [address]- 2886 April, [facility] [place] [facility] [address] [id number] [place] [address]- 6732 April, [facility] [place] [facility] [address] [id number] [place] [address]- 0994 April, [facility] [place] [facility] [address] [id number] [place] [address]- 7109 April, [facility] [place] [facility] [address] [id number] [place] [address]- 2806 Mar, [facility] [place] [facility] [address] [id number] [place] [address]- 6863 Mar, [facility] [place] [facility] [address] [id number] [place] [address] Mar, [facility] [place] [facility] [address] [id number] [place] [address]- 4926 Mar, [facility] [place] [facility] [address] [id number] [place] [address]- 5528 Jan, [facility] [place] [facility] [address] [id number] [place] [address]- 5181 Jan, [facility] [place] [facility] [address] [id number] [place] [address]- 7211 Jan, [facility] [place] [facility] [address] [id number] [place] [address]- 3388 Jan, [facility] [place] [facility] [address] [id number] [place] [address]- 6244 Jan, [facility] [place] [facility] [address] [id number] [place] [address]- 3769 Jan, [facility] [place] [facility] [address] [facility] [id number] [place] [address]- 0780 Jan, [facility] [place] [facility] [address] [id number] [place] [address]- 6720 Jan, [facility] [place] [facility] [address] [id number] [place] [address]- 6257 Jan, [facility] [place] [facility] [address] [id number] [place] [address] Jan, [facility] [place] [facility] [address] [id number] [place] [address]- 6294 Jan, [facility] [place] [facility] [address] [id number] [place] [address]- 7420 Jan, [facility] [address] [id number] [place] [address]- 9132 Dec, [facility] [place] [facility] [address] [id number] [place] [address]- 8031 Dec, [facility] [place] [facility] [address] [id number] [place] [address]- 3452 Dec, [facility] [place] [facility] [address] [id number] [place] [address]- 2318 Dec, [facility] [place] [facility] [address] [id number] [place] [address]- 9476 Nov, [facility] [place] [facility] [address] [id number] [place] [address]- 6036 Nov, [facility] [place] [facility] [address] [id number] [place] [address]- 8453 Nov, [facility] [place] [facility] [address] [id number] [place] [address]- 1079 Nov, [facility] [place] [facility] [address] [id number] [place] [address]- 1285 Oct, [facility] [place] [facility] [address] [id number] [place] [address]- 1101 Oct, [facility] [place] [facility] [address] [id number] [place] [address]- 9822 Sep, [facility] [place] [facility] [address] [id number], [place] [address]- 8040 Sep, [facility] [place] [facility] [address] [id number] [place] [address]- 0945 Jul, [facility] [place] [facility] [address] [id number] [place] [address]- 5683 Jul, [facility] [place] [facility] [address] [id number] [place] [address]- 0063 Jun, [facility] [place] [facility] [address] [id number] [place] [address]- 1014 Jun, [facility] [address] [id number] [place] [address]- 3373 Jun, [facility] [address] [id number] [place] [address]- 1187 May, [facility] [address] [id number] [place] [address]- 4854 May, [facility] [place] [facility] [address] [id number] [place] [address]- 9291 May, [facility] [address] [id number] [place] [address]- 0091 May, [facility] [place] [facility] [address] [id number] [place] [address]- 4825 May, [facility] [address] [id number] [place] [address]- 8328 April, [facility] [address] [id number] [place] [address]- 0655 April, [facility] [address] [id number] [place] [address]- 8242 April, [facility] [address] [id number] [place] [address]- 8511 April, [facility] [address] [id number] [place] [address]- 4176 April, [facility] [place] [facility] [address] [id number] [place] [address]- 1164 April, [facility] [place] [facility] [address] [id number] [place] [address]- 1214 Mar, [facility] [place] [facility] [address] [id number] [place] [address]- 6872 Mar, [facility] [place] [facility] [address] [id number] [place] [address]- 8974 Jan, [facility] [place] [facility] [address] [id number] [place] [address]- 2630 Jan, [facility] [place] [facility] [address] [id number] [place] [address]- 1136 Jan, [facility] [place] [facility] [address] [id number] [place] [address] 2547 Jan, [facility] [place] [facility] [address] [id number] [place] [address]- 7816 Jan, [facility] [place] [facility] [address] [id number] [place] [address]- 5756 Jan, [facility] [place] [facility] [address] [id number] [place] [address]- 1190 Jan, [facility] [place] [facility] [address] [id number] [place] [address]- 6797 Jan, [facility] [place] [facility] [address] [id number] [place] [address]- 9884 Jan, [facility] [place] [facility] [address] [id number] [place] [address]- 6679 Jan, [facility] [place] [facility] [address] [id number] [place] [address]- 3643 Jan, [facility] [place] [facility] [address] [id number] [place] [address]- 3600 Dec, [facility] [place] [facility] [address] [id number] [place] [address]- 8530 Nov, [facility] [place] [facility] [address] [id number] [place] [address] 2546 Nov, [facility] [place] [facility] [address] [id number] [place] [address] 2546 Nov, [facility] [place] [facility] [address] [id number] [place] [address]- 4354 Nov, [facility] [place] [facility] [address] [id number] [place] [address]- 9970 21 Nov, 2012 [facility] [place] [facility] [address] [id number] [place] [address]- 3189 20 Nov, 2012 [facility] [place] [facility] [address] [id number] [place] [address]- 2125 20 Nov, 2012 [facility] [place] [facility] [address] [id number] [place] [address]- 5668 Nov, [facility] [place] [facility] [address] [id number] [place] [address]- 7346 19 Nov, 2012 [facility] [place] [facility] [address] [id number] [place] [address], [place] [address]- 8551 18 Nov, 2012 [facility] [place] [facility] [address] [id number] [place] [address]- 5803 18 Nov, 2012 [facility] [place] [facility] [address] [facility] [id number] [place] [address]- 0339 Nov, [facility] [place] [facility] [address] [id number] [place] [address]- 1378 Nov, [facility] [place] [facility] [address] [id number] [place] [address]- 1006 Oct, [facility] [place] [facility] [address] [facility] [id number] [place] [address]- 9671 Oct, [facility] [place] [facility] [address] [id number] [place] [address]- 2864 Oct, [facility] [place] [facility] [address] [id number], [place] [address]- 6252 Sep, [facility] [place] [facility] [address] [id number], [place] [address]- 7036 Sep, [facility] [place] [facility] [address] [facility] [id number], [place] [address]- 0257 Sep, [facility] [place] [facility] [address] [facility] [id number], [place] [address]- 3050 10 Sep, 2012 [facility] [place] [facility] [address] [id number] [place] [address]- 5834 27 Aug, 2012 [facility] [place] [facility] [address] [id number] [place] [address]- 8296 20 Aug, 2012 [facility] [place] [facility] [address] [id number] [place] [address]- 2205 24 Jul, 2012 [facility] [place] [facility] [address] [id number] [place] [address]- 0581 May, [facility] [place] [facility] [address] [id number] [place] [address]- 8584 May, [facility] [place] [facility] [address] [id number] [place] [address]- 4496 May, [facility] [place] [facility] [address] [id number] [place] [address]- 4883 April, [facility] [place] [facility] [address] [id number] [place] [address]- 7730 Mar, [facility] [place] [facility] [address] [id number] [place] [address]- 9790 Mar, [facility] [place] [facility] [address] [id number] [place] [address]- 5746 Mar, [facility] [place] [facility] [address] [id number] [place] [address]- 3464 Jan, [facility] [place] [facility] [address] [id number] [place] [address]- 5688 Jan, [facility] [place] [facility] [address] [id number] [place] [address]- 1815 Jan, [facility] [place] [facility] [address] [id number] [place] [address]- 5886 Dec, [facility] [place] [facility] [address] [id number] [place] [address]- 9582 Dec, [facility] [place] [facility] [address] [id number] [place] [address]- 6820 Dec, [facility] [place] [facility] [address] [id number] [place] [address]- 8496 Dec, [facility] [place] [facility] [address] [id number] [place] [address]- 6769 Nov, [facility] [place] [facility] [address] [id number] [place] [address]- 5237 Nov, [facility] [place] [facility] [address] [id number] [place] [address]- 8117 Nov, [facility] [place] [facility] [address] [id number] [place] [address]- 3227 Oct, [facility] [place] [facility] [address] [id number] [place] [address]- 0883 Sep, [facility] [place] [facility] [address] [id number] [place] [address]- 2404 Sep, [facility] [place] [facility] [address] [id number], [place] [address]- 3710 Sep, [facility] [place] [facility] [address] [id number], [place] [address]- 4604 Nov, [facility] [place] [facility] [address] [id number], [place] [address]- 0594 Oct, [facility] [place] [facility] [address] [id number], [place] [address]- 4169 Oct, [facility] [place] [facility] [address] [id number], [place] [address]- 5314 18 Oct, 2010 [facility] [place] [facility] [address] [id number], [place] [address]- 5462 16 Oct, 2010 [facility] [place] [facility] [address] [id number], [place] [address]- 5251 11 Sep, 2010 [facility] [place] [facility] [address] [id number], [place] [address]- 1979 April, [facility] [place] [facility] [address] [id number] [address]01 Nov, [facility] [id number], [place] [address]- 4644 Nov, [facility] [id number] 2802 Nov, [facility] [id number], [place] [address]- 9585 Nov, [facility] [id number], [place] [address]- 5924 Nov, [facility] [id number] 3608 Oct, [facility] [id number] 8435 Oct, [facility] [id number], [place] [address]- 5866 Sep, [facility] [address] [id number], [place] [address]- 9276 Jan, IMMUNIZATIONS No Known Immunizations SOCIAL HISTORY [...] History Depression Medical History At [facility] 04/2016 Started on Eliquis Medical History Anemia 04/2016 postsurgical hip fx Surgical History right hip replacement w/ Dr. Bruce 2011 Surgical History triple bypass surgery 2003 Surgical History S/P left hip IM Nail (Intertrechanteric hip fx) 04/28/16 Hospitalization History surgeries Hospitalization History Hypertension Hospitalization History ER for a concussion 11/24/15 Hospitalization History Intertrechanteric hip fx 04/27/16 Hospitalization History [facility] (inpatient [facility] 2 times) Hx of 3 inpatient psych treatments in past in [place] oct 2016 [facility]ization History [facility] 2016
[2019-02-11 14:16] LABS: BASOPHILS % (AUTO) 0 % (0-10); EOSINOPHILS % (AUTO) 0 % (0-10); HEMATOCRIT 31 % (35-52); HEMOGLOBIN 11.2 G/DL (11.5-16.0); LYMPHOCYTES # (AUTO) 0.7 X 10^3 (1.0-4.0); LYMPHOCYTES % (AUTO) 5 % (12-44); MEAN CORPUSCULAR HEMOGLOBIN 29 PG (25-34); MEAN CORPUSCULAR HGB CONC 36 G/DL (32-36); MEAN CORPUSCULAR VOLUME 82 FL (80-99); MONOCYTES # (AUTO) 1.7 X 10^3 (0.0-1.0); MONOCYTES % (AUTO) 11 % (0-12); NEUTROPHILS # (AUTO) 13.3 X 10^3 (1.8-7.8); NEUTROPHILS % (AUTO) 85 % (42-75); PLATELET COUNT 292 10^3/uL (130-400); RED CELL DISTRIBUTION WIDTH 13.2 % (10.0-14.5); WHITE BLOOD COUNT 15.7 10^3/uL (4.3-11.0)
--- OUTSIDE RECORDS SUMMARY | 2019-02-11 14:30 | XMS REPORT ---
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 Name Role Phone WOLF AGUIRRE Unavailable PROBLEMS Type Condition ICD9-CM Code HLC69-IG Code Onset Dates Condition Status SNOMED Code Problem Sundowning F05 Active 523712435 Problem Constipation, unspecified constipation type K59.00 Active 55581415 Problem Reactive depression F32.9 Active 87144294 Problem Vascular dementia with behavior disturbance F01.51 Active 966387000619941 Problem Insomnia, unspecified type G47.00 Active 684419512 Problem Generalized anxiety disorder F41.1 Active 74357913 Problem Other chronic pain G89.29 Active 31241084 Problem Severe episode of recurrent major depressive disorder, without psychotic features F33.2 Active 04920276 Problem Slow transit constipation K59.01 Active 42423471 Problem 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 Active 665202294 Problem Obsessive thinking F42.8 Active 59743935 Problem Failure to thrive in adult R62.7 Active 537024477 Problem Dysthymic disorder F34.1 Active 78753632 Problem Hypertension I10 Active 65999225 Problem Mood disorder F39 Active 07307444 Problem Irritable bowel syndrome with diarrhea K58.0 Active 816018000 Problem Oropharyngeal dysphagia R13.12 Active 33125321 Problem 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 Active 61743286 Problem Other chronic pain G89.29 Active 48117626 Problem Primary insomnia F51.01 Active 6395770 Problem Poor appetite R63.0 Active 88396226 Problem 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 Active 121172751448621 Problem Iron deficiency anemia secondary to inadequate dietary iron intake D50.8 Active 318086660 Problem Coarse tremors G25.2 Active 72558560 Problem Gastroesophageal reflux disease without esophagitis K21.9 Active 117655836 Problem Essential hypertension I10 Active [id number] ALLERGIES No Information ENCOUNTERS Encounter Location Date Diagnosis [facility] [address] [place] [id number] Sep, [facility] [id number] [place] [address] 66789- 3551 Sep, [facility] [id number] [place] [address] 60764- 7890 Sep, [facility] [address] [id number] Sep, Obsessive thinking F42.8 [facility] [id number] [place] [address] 14130- 5983 Sep, [facility] [id number] [place] [address] 49472- 4105 Sep, [facility] [id number] [place] [address] 86841- 6442 Aug, [facility] [id number] [place] [address] 94495- 7032 Aug, [facility] [id number] [place] [address] 69311- 0608 Aug, Positive urine drug screen R82.[address] [id number] Aug, [facility] [address] [place] [address] 42492- 6366 Aug, [facility] [address] [place] [address] 11035- 9860 Aug, [facility] [address] [place] [address] 41509- 1859 17 Aug, 2018 Irritable bowel syndrome with diarrhea K58.0 [facility] [address] [place] [address] 52387- 6377 Aug, [facility] [address] [place] [address] 04164- 9054 Aug, Obsessive thinking F42.8 ; Insomnia, unspecified type G47.00 and Other chronic pain G89.29 [facility] [address] [id number] Aug, Obsessive thinking F42.8 ; Irritable bowel syndrome with diarrhea K58.0 ; Pain in right foot M79.671 ; Pain of left foot M79.672 and Gastroesophageal reflux disease without esophagitis K21.9 [facility] [id number] [place] [address] 55265- 9861 Aug, [facility] [id number] [place] [address] 23395- 2457 Jul, [place] [facility] [id number] [place] [address] 78833- 9865 Jun, [facility] [id number] [place] [address] 37411- 5282 Jun, [facility] [address] [id number] Jun, Left lower quadrant pain R10.32 and Left leg pain M79.605 [facility] [id number] [place] [address] 05199- 8156 Jun, [facility] [address] [id number] Jun, Pain in left hip M25.552 ; Pain in right hip M25.551 and Primary insomnia F51.01 [facility] [id number] [place] [address] 14740- 2366 Jun, [facility] [address] [id number] May, [facility] [id number] [place] [address] 41846- 7144 May, [facility] [id number] [place] [address] 88261- 7126 May, [facility] [address] [id number] May, Mood disorder F39 [facility] [address] [address]- 8156 May, [facility] [id number] [place] [address] 11146- 5758 April, [facility] [address] [id number] April, Generalized anxiety disorder F41.1 ; Obsessive thinking F42.8 and Insomnia , unspecified type G47.00 [facility] [id number] [place] [address] 65267- 0302 April, [facility] [id number] [place] [address] 80065- 2816 April, Rash of face R21 [facility] [id number] [place] [address] 97411- 1980 Mar, [facility] [id number] [place] [address] 75007- 3544 Mar, [facility] [id number] [place] [address] 32805- 6894 Mar, [facility] [id number] [place] [address] 73898- 1807 Jan, [facility] [id number] [place] [address] 29160- 1080 Jan, [facility] [address] [place] [address] Jan, Constipation, unspecified constipation type K59.00 and Other chronic pain G89.29 [facility] [address] [place] [address] 74073- 2758 Jan, [facility] [address] [id number] Jan, Obsessive thinking F42.8 and Coarse tremors G25.2 [facility] [id number] [id number] Jan, [facility] [id number] [place] [id number] Jan, [facility] [address] [address] Jan, Generalized anxiety disorder F41.1 ; Obsessive thinking F42.8 ; Callus of foot L84 and 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 [facility] [id number] [place] [address] 63591- 6626 Dec, Generalized anxiety disorder F41.1 and Severe episode of recurrent major depressive disorder, without psychotic features F33.2 [facility] [id number] [place] [address] 84613- 1729 Nov, [facility] [id number] [place] [address] 67699- 5036 Nov, [facility] [address] [id number] Nov, Oropharyngeal dysphagia R13.12 ; Generalized anxiety disorder F41.1 and 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 [facility] [id number] [place] [address] 70227- 2347 Nov, [facility] [address] [id number] Nov, [facility] [id number] [place] [address] 77360- 2863 Nov, [facility] [id number] [place] [address] 75387- 1514 Nov, [facility] [id number] [place] [address] 87546- 4579 Oct, Constipation, unspecified constipation type K59.00 and Mood disorder F39 [facility] [id number] [place] [address] 23973- 6556 Oct, [facility] [id number] [place] [id number] Sep, [facility] [id number] [place] [id number] Sep, [facility] [id number] [id number] Sep, [facility] [id number] [address] Sep, [facility] [address] [id number] Sep, Generalized abdominal pain R10.84 [facility] [address], [place] [address]- 9526 Sep, [facility] [id number] [address] Sep, Generalized anxiety disorder F41.1 and Primary insomnia F51.01 [facility] [id number] [id number] Aug, [facility] [id number] [address] Aug, Generalized anxiety disorder F41.1 [facility] [id number] [address] 8888 Jul, [facility] [address] [id number] Jul, Obsessive thinking F42.8 [facility] [id number] [address]- 9850 Jul, Generalized anxiety disorder F41.1 and Irritable bowel syndrome with diarrhea K58.0 [facility] [id number] [address] Jul, Generalized anxiety disorder F41.1 [facility] [id number] [address] Jun, Generalized anxiety disorder F41.1 [facility] [id number] [address]- 5368 May, [facility] [address] [id number] May, Generalized anxiety disorder F41.1 ; Irritable bowel syndrome with diarrhea K58.0 and Coarse tremors G25.2 [place] [facility] [address] [place] [address] 95893- 0786 April, [facility] [id number] [place] [address] 61427- 4185 April, [facility] [id number] [place] [address] 34523- 6756 April, [facility] [id number] [place] [address] 75541- 5168 Mar, [facility] [address] [id number] Mar, Severe episode of recurrent major depressive disorder, without psychotic features F33.2 and Pain in left hip M25.552 [facility] [id number] [place] [address] 75317- 5255 Mar, [facility] [id number] [place] [address] 81408- 0208 Mar, [facility] [id number] [place] [address] 80629- 7478 Mar, [facility] [id number] [place] [address] 46698- 5924 Mar, Pain in right hip M25.551 and Self-care deficit in patient living alone R46.89 [facility] [address] [place] [address] 36144 -7165 Jan, Other chronic pain G89.29 ; Pain in left hip M25.552 and Slow transit constipation K59.01 [facility] [id number] [place] [address] 65704- 7342 Jan, [facility] [id number] [place] [address] 71789- 8294 Dec, Other depression F32.89 ; Constipation, unspecified constipation type K59.00 and Insomnia, unspecified type G47.00 [place] [address] [place] [address] 76205- 2256 Nov, Reactive depression F32.9 ; Chronic idiopathic constipation K59.04 ; Generalized anxiety disorder F41.1 ; Coarse tremors G25.2 ; Gastroesophageal reflux disease without esophagitis K21.9 ; Dysthymic disorder F34.1 ; Vitamin deficiency, unspecified E56.9 and Primary insomnia F51.01 [place] [facility] [id number] [place] [address] 70864- 5327 Nov, [facility] [id number] [place] [address] 55475- 2541 Nov, [facility] [facility] [id number] [place] [address] 84829- 4831 Nov, [facility] [id number] [place] [address] 84610- 8403 Nov, Reactive depression F32.9 ; Essential hypertension I10 ; Generalized anxiety disorder F41.1 ; 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 ; Pain in right hip M25.551 ; Other chronic pain G89.29 ; Chronic idiopathic constipation K59.04 ; Primary insomnia F51.01 ; Coarse tremors G25.2 ; Gastroesophageal reflux disease without esophagitis K21.9 ; Iron deficiency anemia secondary to inadequate dietary iron intake D50.8 and Vitamin deficiency, unspecified E56.9 [place] [facility] [id number] [place] [address] 98234- 6200 Oct, [facility] [id number] [place] [address] 98239- 6518 Oct, [facility] [facility] [id number] [place] [address] 70131- 2023 Oct, [facility] [id number] [place] [address] 77211- 2483 Oct, Generalized anxiety disorder F41.1 ; Poor appetite R63.0 ; Dehydration E86.0 and Failure to thrive in adult R62.7 [facility] [facility] [id number] [place] [address] 15553- 3922 Oct, Generalized anxiety disorder F41.1 and Failure to thrive in adult R62.7 [facility] [id number] [place] [address] 86160- 7405 Oct, [facility] [id number] [place] [address] 89209- 6015 Oct, [facility] [address] 92982 -4145 Sep, Vaginal discharge N89.8 and Acute cystitis with hematuria N30.01 [facility] [address] 39846- 1882 Sep, [facility] [address] 03487- 8679 Sep, [facility] [id number] [place] [address] 71916- 7887 Sep, Dysthymic disorder F34.1 ; Acute vaginitis N76.0 ; Dysuria R30.0 and Vaginal yeast infection B37.3 [facility] [id number] [place] [address] 32295- 3784 Aug, [facility] [id number] [place] [address] 39632- 0983 Aug, [facility] [id number] [place] [address] 87541 -4232 Aug, Foul smelling urine R82.90 ; Rapid heart rate R00.0 and Flatulence R14.3 [facility] [id number] [place] [address] 97034- 9757 Aug, [facility] [id number] [place] [address] 55300- 1377 Jul, Constipation, unspecified constipation type K59.00 ; Weak R53.1 ; Poor appetite R63.0 ; Coronary artery disease involving benton heart without angina pectoris, unspecified vessel or lesion type I25.10 ; Fatigue, unspecified type R53.83 ; Urinary incontinence, unspecified type R32 and Insomnia, unspecified type G47.00 [place] [id number] [place] [address] 10831- 9517 Jul, [facility] [facility] [address] 28291- 3528 Jun, Dysuria R30.0 [facility] [address] 26590- 6234 Jun, [facility] [address] 78663- 8513 Jun, Urinary tract infection, site not specified N39.0 ; Acute vaginitis N76.0 and Diarrhea, unspecified type R19.7 [place] [facility] [address] 88518- 3261 May, [facility] [address] 08535- 1143 April, [facility] [address] [id number] April, Encounter for dental examination Z01.20 [place] [address] 45650- 1074 April, [place] [facility] [address] 65135- 3990 April, Tremor R25.1 and Episodic tension-type headache, not intractable G44.219 [place] [facility] [address] 98024- 4513 Mar, [place] [facility] [address] 98570- 1357 Jan, Mood disorder F39 [facility] [id number] [place] [address] 16063 -2386 Jan, [place] [address], [place] [address]- 7392 Jan, [facility] [address], [place] [address]- 1146 Jan, [facility] [address], [place] [address]- 1003 Jan, [facility] [address] [place] [address] 29779- 0758 Jan, [facility] [address] [place] [address] 52088- 4842 Jan, [facility] [id number] [place] [address] 07507 -8810 Dec, Acute diarrhea R19.7 [facility] [address] [place] [address] 83748- 7031 Dec, [facility] [id number] [place] [address] 61955- 3686 Dec, [facility] [address] [place] [address] 84845- 9353 Dec, [facility] [address] [place] [address] 26048 -3164 Dec, N&V (nausea and vomiting) R11.2 [facility] [address] [place] [address] 49100- 6092 Dec, Generalized anxiety disorder F41.1 [facility] [address], [place] [address]- 0811 Dec, Generalized anxiety disorder F41.1 [facility] [id number] [place] [address] 29846- 9454 Nov, Post concussion syndrome F07.81 [facility] [address], [place] [address]- 0414 Nov, Generalized anxiety disorder F41.1 [facility] [address] [place] [address] 595456- 0286 Nov, [facility] [address] 01018- 3706 Nov, Generalized anxiety disorder F41.1 [facility] [id number] [place] [address] [id number] Oct, Dental caries K02.9 [facility] [address] 40894- 4528 Oct, [facility] [id number] [place] [address] [id number] Oct, Dental examination Z01.20 [facility] [address] [id number] 10 Oct, 2015 Encounter for dental examination Z01.20 [place] [id number] [place] [address] 08629- 3396 Oct, CAD (coronary artery disease) I25.10 [facility] [id number] [place] [address] 92196- 5593 Sep, Generalized anxiety disorder F41.1 [place] [id number] [place] [address] 74616- 9762 Sep, [facility] [id number] [place] [address] 38537- 3796 Sep, Rash and other nonspecific skin eruption R21 and Yeast vaginitis B37.3 [facility] [id number] [place] [address] 38861- 6050 Sep, Generalized anxiety disorder F41.1 [facility] [address] 18524- 0789 Aug, Insect bites 919.4 and Hemorrhoids 455.6 [facility] [id number] [place] [address] 33400- 7932 Aug, Generalized anxiety disorder 300.02 [facility] [id number] [address]- 8557 08 Aug, 2015 [facility] [address] [place] [address] 48906- 4535 Aug, [facility] [address] [place] [address] 51347- 2216 Aug, Generalized anxiety disorder 300.02 ; No condition on [place] II V71.09 ; Heart problem 429.9 and Hypertension 401.9 [facility] [id number], [place] [address]- 6571 Aug, [facility] [id number] [place] [address] 35841- 0500 Jul, [facility] [id number] [place] [address] 40123- 9086 Jul, [facility] [id number] [place] [address] 80155- 2669 Jul, [facility] [address] [place] [address] 60428- 0594 Jul, [facility] [id number] [place] [address] 10704- 8920 Jul, Rash 782.1 [facility] [address] [place] [address] 96623- 8288 Jul, UTI (urinary tract infection) 599.0 [facility] [address], [place] [address]- 4290 Jul, [facility] [address], [place] [address]- 8237 Jun, Dysthymia 300.4 and Anxiety 300.00 [facility] [address], [place] [address]- 2338 Jun, 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 [facility] [address] [place] [address] 01740- 2945 May, [facility] [address] [id number], [place] [address] 2546 May, [facility] [address] [facility] [id number], [place] [address]- 4416 May, Unspecified breast screening V76.10 [facility] [address] [id number] [id number] May, Dental examination V72.2 [facility] [address] [id number], [place] [address] 2546 April, [facility] [address] [id number], [place] [address] 2546 April, [facility] [address] [id number] April, Dental examination V72.2 [facility] [address] [address] April, Dental examination V72.2 [facility] [address] [id number], [place] [address]- 5936 Mar, [facility] [address] [id number], [place] [address]- 0377 Mar, [facility] [address] [facility] [id number], [place] [address]- 1696 Jan, [facility] [address] [facility] [id number], [place] [address]- 2136 Jan, [facility] [address] [id number], [place] [address]- 1386 Jan, [facility] [address] [id number], [place] [address]- 4177 Jan, [facility] [address] [facility] [id number], [place] [address] 2546 Jan, [facility] [address] [facility] [id number][place] [address]- 6826 Jan, [facility] [place] [facility] [address] [id number] [place] [address]- 9535 13 Jan, 2015 [facility] [place] [facility] [address] [id number] [place] [address] Jan, 2014 [facility] [place] [facility] [address] [id number] [place] [address] Jan, 2014 [facility] [place] [facility] [address] [id number] [place] [address] Jan, 2014 [facility] [place] [facility] [address] [id number] [place] [address] Jan, [facility] [place] [facility] [address] [id number] [place] [address] Jan, [facility] [place] [facility] [address] [facility] [id number] [place] [address] Jan, [facility] [place] [facility] [address] [id number] [place] [address] Jan, [facility] [place] [facility] [address] [id number] [place] [address] Jan, [facility] [place] [facility] [address] [id number] [place] [address] Jan, 2014 [facility] [place] [facility] [address] [facility] [id number] [place] [address] Jan, 2014 [facility] [place] [facility] [address] [id number] [place] [address] Jan, 2014 [facility] [place] [facility] [address] [id number] [place] [address] Jan, [facility] [place] [facility] [address] [id number] [place] [address] Jan, [facility] [place] [facility] [address] [facility] [id number] [place] [address] Jan, 2014 [facility] [place] [facility] [address] [id number] [place] [address] Jan, [facility] [place] [facility] [address] [id number] [place] [address] Dec, [facility] [place] [facility] [address] [id number] [place] [address] 1377 Dec, [facility] [place] [facility] [address] [id number] [place] [address]- 9166 Dec, [facility] [place] [facility] [address] [id number] [place] [address] 8049 Dec, [facility] [place] [facility] [address] [id number] [place] [address]- 97[address] Nov, [facility] [place] [facility] [address] [id number] [place] [address]- 9853 Nov, [facility] [place] [facility] [address] [id number] [place] [address]- [address]150 Nov, [facility] [place] [facility] [address] [id number] [place] [address]- 8841 Nov, [facility] [place] [facility] [address] [id number] [place] [address]- 6274 Nov, [facility] [place] [facility] [address] [id number] [place] [address]- 4548 Nov, [facility] [place] [facility] [address] [id number] [place] [address]- 0794 Nov, [facility] [place] [facility] [address] [id number] [place] [address]- 2966 Oct, [facility] [place] [facility] [address] [id number] [place] [address]- 4412 Oct, [facility] [place] [facility] [address] [id number] [place] [address] Oct, [facility] [place] [facility] [address] [id number] [place] [address]- 8886 Oct, [facility] [place] [facility] [address] [id number] [place] [address]- 8234 Oct, [facility] [place] [facility] [address] [id number] [place] [address]- 0978 Oct, [facility] [place] [facility] [address] [id number] [place] [address]- 8477 Oct, [facility] [place] [facility] [address] [id number] [place] [address]- 3337 Oct, [facility] [place] [facility] [address] [id number] [place] [address]- 0780 Oct, [facility] [place] [facility] [address] [id number] [place] [address]- 6661 Oct, [facility] [place] [facility] [address] [id number] [place] [address]- 8385 Oct, [facility] [place] [facility] [address] [id number] [place] [address]- 7517 Oct, [facility] [place] [facility] [address] [id number] [place] [address]- 7903 Sep, [facility] [place] [facility] [address] [id number] [place] [address]- 8836 Sep, [facility] [place] [facility] [address] [id number] [place] [address]- 6073 Sep, [facility] [place] [facility] [address] [id number] [place] [address]- 3896 Sep, [facility] [place] [facility] [address] [id number] [place] [address] 1942 Jul, [facility] [place] [facility] [address] [id number] [place] [address]- 4817 Jul, [facility] [place] [facility] [address] [id number] [place] [address]- 8288 Jul, [facility] [place] [facility] [address] [id number] [place] [address]- 3092 Jul, [facility] [place] [facility] [address] [id number] [place] [address] Jun, [facility] [place] [facility] [address] [id number] [place] [address]- 1721 Jun, [facility] [place] [facility] [address] [id number] [place] [address]- 0899 Jun, [facility] [place] [facility] [address] [id number] [place] [address]- 1665 Jun, [facility] [place] [facility] [address] [id number] [place] [address]- 0541 May, [facility] [place] [facility] [address] [id number] [place] [address]- 8902 May, [facility] [place] [facility] [address] [id number] [place] [address]- 5040 April, [facility] [place] [facility] [address] [id number] [place] [address]- 5646 April, [facility] [place] [facility] [address] [id number] [place] [address]- 0556 April, [facility] [place] [facility] [address] [id number] [place] [address]- 4069 April, [facility] [place] [facility] [address] [id number] [place] [address]- 8811 April, [facility] [place] [facility] [address] [id number] [place] [address]- 8520 April, [facility] [place] [facility] [address] [id number] [place] [address]- 7794 April, [facility] [place] [facility] [address] [id number] [place] [address]- 0804 April, [facility] [place] [facility] [address] [id number] [place] [address]- 8556 April, [facility] [place] [facility] [address] [id number] [place] [address]- 8624 Mar, [facility] [place] [facility] [address] [id number] [place] [address]- 1527 Mar, [facility] [place] [facility] [address] [id number] [place] [address] Mar, [facility] [place] [facility] [address] [id number] [place] [address]- 6256 Mar, [facility] [place] [facility] [address] [id number] [place] [address]- 4331 Jan, [facility] [place] [facility] [address] [id number] [place] [address]- 9655 Jan, [facility] [place] [facility] [address] [id number] [place] [address]- 8122 Jan, [facility] [place] [facility] [address] [id number] [place] [address]- 4241 Jan, [facility] [place] [facility] [address] [id number] [place] [address]- 1829 Jan, [facility] [place] [facility] [address] [id number] [place] [address]- 1563 Jan, [facility] [place] [facility] [address] [facility] [id number] [place] [address]- 9837 Jan, [facility] [place] [facility] [address] [id number] [place] [address]- 8726 Jan, [facility] [place] [facility] [address] [id number] [place] [address]- 7766 Jan, [facility] [place] [facility] [address] [id number] [place] [address] Jan, [facility] [place] [facility] [address] [id number] [place] [address]- 6885 Jan, [facility] [place] [facility] [address] [id number] [place] [address]- 9584 Jan, [facility] [address] [id number] [place] [address]- 1451 Dec, [facility] [place] [facility] [address] [id number] [place] [address]- 9101 Dec, [facility] [place] [facility] [address] [id number] [place] [address]- 6823 Dec, [facility] [place] [facility] [address] [id number] [place] [address]- 6724 Dec, [facility] [place] [facility] [address] [id number] [place] [address]- 1700 Nov, [facility] [place] [facility] [address] [id number] [place] [address]- 2842 Nov, [facility] [place] [facility] [address] [id number] [place] [address]- 4699 Nov, [facility] [place] [facility] [address] [id number] [place] [address]- 8900 Nov, [facility] [place] [facility] [address] [id number] [place] [address]- 0517 Oct, [facility] [place] [facility] [address] [id number] [place] [address]- 4917 Oct, [facility] [place] [facility] [address] [id number] [place] [address]- 1422 Sep, [facility] [place] [facility] [address] [id number], [place] [address]- 3834 Sep, [facility] [place] [facility] [address] [id number] [place] [address]- 2506 Jul, [facility] [place] [facility] [address] [id number] [place] [address]- 7905 Jul, [facility] [place] [facility] [address] [id number] [place] [address]- 9062 Jun, [facility] [place] [facility] [address] [id number] [place] [address]- 3753 Jun, [facility] [address] [id number] [place] [address]- 3761 Jun, [facility] [address] [id number] [place] [address]- 3233 May, [facility] [address] [id number] [place] [address]- 8193 May, [facility] [place] [facility] [address] [id number] [place] [address]- 4532 May, [facility] [address] [id number] [place] [address]- 3157 May, [facility] [place] [facility] [address] [id number] [place] [address]- 5351 May, [facility] [address] [id number] [place] [address]- 3361 April, [facility] [address] [id number] [place] [address]- 3113 April, [facility] [address] [id number] [place] [address]- 3664 April, [facility] [address] [id number] [place] [address]- 9463 April, [facility] [address] [id number] [place] [address]- 7442 April, [facility] [place] [facility] [address] [id number] [place] [address]- 9456 April, [facility] [place] [facility] [address] [id number] [place] [address]- 4451 Mar, [facility] [place] [facility] [address] [id number] [place] [address]- 9378 Mar, [facility] [place] [facility] [address] [id number] [place] [address]- 1710 Jan, [facility] [place] [facility] [address] [id number] [place] [address]- 3034 Jan, [facility] [place] [facility] [address] [id number] [place] [address]- 7076 Jan, [facility] [place] [facility] [address] [id number] [place] [address] 2545 Jan, [facility] [place] [facility] [address] [id number] [place] [address]- 8876 Jan, [facility] [place] [facility] [address] [id number] [place] [address]- 4737 Jan, [facility] [place] [facility] [address] [id number] [place] [address]- 2971 Jan, [facility] [place] [facility] [address] [id number] [place] [address]- 8144 Jan, [facility] [place] [facility] [address] [id number] [place] [address]- 2007 Jan, [facility] [place] [facility] [address] [id number] [place] [address]- 2876 Jan, [facility] [place] [facility] [address] [id number] [place] [address]- 0190 Jan, [facility] [place] [facility] [address] [id number] [place] [address]- 5837 Dec, [facility] [place] [facility] [address] [id number] [place] [address]- 3430 Nov, [facility] [place] [facility] [address] [id number] [place] [address] 2546 Nov, [facility] [place] [facility] [address] [id number] [place] [address] 2546 Nov, [facility] [place] [facility] [address] [id number] [place] [address]- 2498 Nov, [facility] [place] [facility] [address] [id number] [place] [address]- 9937 21 Nov, 2012 [facility] [place] [facility] [address] [id number] [place] [address]- 7117 20 Nov, 2012 [facility] [place] [facility] [address] [id number] [place] [address]- 0911 20 Nov, 2012 [facility] [place] [facility] [address] [id number] [place] [address]- 0933 Nov, [facility] [place] [facility] [address] [id number] [place] [address]- 5065 19 Nov, 2012 [facility] [place] [facility] [address] [id number] [place] [address], [place] [address]- 0187 18 Nov, 2012 [facility] [place] [facility] [address] [id number] [place] [address]- 8506 18 Nov, 2012 [facility] [place] [facility] [address] [facility] [id number] [place] [address]- 9195 Nov, [facility] [place] [facility] [address] [id number] [place] [address]- 9028 Nov, [facility] [place] [facility] [address] [id number] [place] [address]- 3918 Oct, [facility] [place] [facility] [address] [facility] [id number] [place] [address]- 0834 Oct, [facility] [place] [facility] [address] [id number] [place] [address]- 4949 Oct, [facility] [place] [facility] [address] [id number], [place] [address]- 3587 Sep, [facility] [place] [facility] [address] [id number], [place] [address]- 8623 Sep, [facility] [place] [facility] [address] [facility] [id number], [place] [address]- 6566 Sep, [facility] [place] [facility] [address] [facility] [id number], [place] [address]- 0947 10 Sep, 2012 [facility] [place] [facility] [address] [id number] [place] [address]- 8118 27 Aug, 2012 [facility] [place] [facility] [address] [id number] [place] [address]- 6366 20 Aug, 2012 [facility] [place] [facility] [address] [id number] [place] [address]- 1474 24 Jul, 2012 [facility] [place] [facility] [address] [id number] [place] [address]- 7679 May, [facility] [place] [facility] [address] [id number] [place] [address]- 7321 May, [facility] [place] [facility] [address] [id number] [place] [address]- 6071 May, [facility] [place] [facility] [address] [id number] [place] [address]- 2826 April, [facility] [place] [facility] [address] [id number] [place] [address]- 2592 Mar, [facility] [place] [facility] [address] [id number] [place] [address]- 3422 Mar, [facility] [place] [facility] [address] [id number] [place] [address]- 1771 Mar, [facility] [place] [facility] [address] [id number] [place] [address]- 4634 Jan, [facility] [place] [facility] [address] [id number] [place] [address]- 8999 Jan, [facility] [place] [facility] [address] [id number] [place] [address]- 2789 Jan, [facility] [place] [facility] [address] [id number] [place] [address]- 0374 Dec, [facility] [place] [facility] [address] [id number] [place] [address]- 7676 Dec, [facility] [place] [facility] [address] [id number] [place] [address]- 4820 Dec, [facility] [place] [facility] [address] [id number] [place] [address]- 6962 Dec, [facility] [place] [facility] [address] [id number] [place] [address]- 6818 Nov, [facility] [place] [facility] [address] [id number] [place] [address]- 7236 Nov, [facility] [place] [facility] [address] [id number] [place] [address]- 3828 Nov, [facility] [place] [facility] [address] [id number] [place] [address]- 2413 Oct, [facility] [place] [facility] [address] [id number] [place] [address]- 7145 Sep, [facility] [place] [facility] [address] [id number] [place] [address]- 1392 Sep, [facility] [place] [facility] [address] [id number], [place] [address]- 7262 Sep, [facility] [place] [facility] [address] [id number], [place] [address]- 8961 Nov, [facility] [place] [facility] [address] [id number], [place] [address]- 4519 Oct, [facility] [place] [facility] [address] [id number], [place] [address]- 8569 Oct, [facility] [place] [facility] [address] [id number], [place] [address]- 6181 18 Oct, 2010 [facility] [place] [facility] [address] [id number], [place] [address]- 1399 16 Oct, 2010 [facility] [place] [facility] [address] [id number], [place] [address]- 7708 11 Sep, 2010 [facility] [place] [facility] [address] [id number], [place] [address]- 4878 April, [facility] [place] [facility] [address] [id number] [address]43 Nov, [facility] [id number], [place] [address]- 2375 Nov, [facility] [id number]- 7418 Nov, [facility] [id number], [place] [address]- 8801 Nov, [facility] [id number], [place] [address]- 8440 Nov, [facility] [id number] 7564 Oct, [facility] [id number] [address]781 Oct, [facility] [id number], [place] [address]- [address] Sep, [facility] [address] [id number], [place] [address]- 7513 Jan, IMMUNIZATIONS No Known Immunizations SOCIAL HISTORY [...] History Intertrechanteric hip fx 04/27/16 Hospitalization History [facility] (inpatient [facility] 2 times) Hx of 3 inpatient psych treatments in past in [place] oct 2016 [facility]
--- OUTSIDE RECORDS SUMMARY | 2019-02-11 14:31 | XMS REPORT ---
Author Author WOLF AGUIRRE [facility] Address [address] [place] [address] Care Team Providers Care Traffic Law Attorney Name Role Phone WOLF AGUIRRE Unavailable PROBLEMS Type Condition ICD9-CM Code EZE58-FN Code Onset Dates Condition Status SNOMED Code Problem Sundowning F05 Active 841919834 Problem Constipation, unspecified constipation type K59.00 Active 09435850 Problem Reactive depression F32.9 Active 22444720 Problem Vascular dementia with behavior disturbance F01.51 Active 016405548767809 Problem Insomnia, unspecified type G47.00 Active 133208108 Problem Generalized anxiety disorder F41.1 Active 16958575 Problem Other chronic pain G89.29 Active 67970643 Problem Severe episode of recurrent major depressive disorder, without psychotic features F33.2 Active 94786867 Problem Slow transit constipation K59.01 Active 09684211 Problem 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 Active 551117395 Problem Obsessive thinking F42.8 Active 06139122 Problem Failure to thrive in adult R62.7 Active 156311098 Problem Dysthymic disorder F34.1 Active 37020069 Problem Hypertension I10 Active 53375580 Problem Mood disorder F39 Active 88912935 Problem Irritable bowel syndrome with diarrhea K58.0 Active 274683043 Problem Oropharyngeal dysphagia R13.12 Active 18979194 Problem 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 Active 08585064 Problem Other chronic pain G89.29 Active 36835286 Problem Primary insomnia F51.01 Active 8581661 Problem Poor appetite R63.0 Active 10997804 Problem Atherosclerotic heart disease of [place] 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 Active 925411491028327 Problem Iron deficiency anemia secondary to inadequate dietary iron intake D50.8 Active 129738214 Problem Coarse tremors G25.2 Active 42131681 Problem Gastroesophageal reflux disease without esophagitis K21.9 Active 917552179 Problem Essential hypertension I10 Active 59436002 ALLERGIES No Information ENCOUNTERS Encounter Location Date Diagnosis [facility] [address] [address] Sep, [facility] [id number] [place] [address] 25272- 3732 Sep, [facility] [address] [id number] Sep, Obsessive thinking F42.8 [facility] [id number] [place] [address] 65904- 2296 Sep, [facility] [id number] [place] [address] 25020- 5357 Sep, [facility] [id number] [place] [address] 09223- 1666 Aug, [facility] [id number] [place] [address] 77428- 4911 Aug, [facility] [id number] [place] [address] 31916- 9793 Aug, Positive urine drug screen R82.[address] [facility] [address] [id number] Aug, [facility] [id number] [place] [address] 67396- 0038 Aug, [facility] [id number] [place] [address] 44322- 9345 Aug, [facility] [id number] [place] [address] 06747- 0832 17 Aug, 2018 Irritable bowel syndrome with diarrhea K58.0 [facility] [id number] [place] [address] 17977- 8411 Aug, [facility] [id number] [place] [address] 76202- 3595 Aug, Obsessive thinking F42.8 ; Insomnia, unspecified type G47.00 and Other chronic pain G89.29 [facility] [address] [place] [id number] Aug, Obsessive thinking F42.8 ; Irritable bowel syndrome with diarrhea K58.0 ; Pain in right foot M79.671 ; Pain of left foot M79.672 and Gastroesophageal reflux disease without esophagitis K21.9 [facility] [address] [address] 9831 Aug, [facility] [id number] [place] [address] 11430- 1160 Jul, [facility] [id number] [place] [address] 17968- 7137 Jun, [facility] [id number] [place] [address] 92334- 5166 Jun, [facility] [address] [place] [id number] Jun, Left lower quadrant pain R10.32 and Left leg pain M79.605 [facility] [id number] [place] [address] 43107- 3997 Jun, [facility] [address] [place] [id number] Jun, Pain in left hip M25.552 ; Pain in right hip M25.551 and Primary insomnia F51.01 [facility] [address] [address] 5206 Jun, [facility] [address] [place] [id number] May, [facility] [address] [address]- 1420 May, [facility] [id number] [place] [address] 28931- 2606 May, [facility] [address] [place] [id number] May, Mood disorder F39 [facility] [id number] [place] [address] 46641- 2158 May, [facility] [id number] [place] [address] 68430- 0654 April, [facility] [address] [place] [id number] April, Generalized anxiety disorder F41.1 ; Obsessive thinking F42.8 and Insomnia , unspecified type G47.00 [facility] [id number] [place] [address] 73775- 4774 April, [facility] [id number] [place] [address] 70749- 9635 April, Rash of face R21 [facility] [address] 75736- 8697 Mar, [facility] [id number] [place] [address] 62890- 4775 Mar, [facility] [id number] [place] [address] 13675- 7481 Mar, [facility] [id number] [place] [address] 00854- 4976 Jan, [facility] [id number] [place] [address] 22167- 0458 Jan, [facility] [address] [place] [id number] Jan, Constipation, unspecified constipation type K59.00 and Other chronic pain G89.29 [facility] [id number] [place] [address] 20151- 0969 Jan, [facility] [address] [place] [id number] Jan, Obsessive thinking F42.8 and Coarse tremors G25.2 [facility] [id number] [place] [address] [id number] Jan, [facility] [id number] [place] [address] [id number] Jan, [facility] [address] [place] [id number] Jan, Generalized anxiety disorder F41.1 ; Obsessive thinking F42.8 ; Callus of foot L84 and 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 [facility] [id number] [place] [address] 08581889- 0515 Dec, Generalized anxiety disorder F41.1 and Severe episode of recurrent major depressive disorder, without psychotic features F33.2 [facility] [id number] [place] [address] 20612- 0787 Nov, [facility] [id number] [place] [address] 94687- 8635 Nov, [facility] [id number] Nov, Oropharyngeal dysphagia R13.12 ; Generalized anxiety disorder F41.1 and 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 [facility] [id number] [place] [address] 41400- 4790 Nov, [facility] [id number] [place] [address] [id number] Nov, [facility] [id number] [place] [address] 58842- 0204 Nov, [facility] [id number] [place] [address] 76024- 1408 Nov, [facility] [id number] [place] [address] 77585- 0216 Oct, Constipation, unspecified constipation type K59.00 and Mood disorder F39 [facility] [id number] [place] [address] 91398- 2376 Oct, [facility] [id number] [place] [address] [id number] Sep, [facility] [id number] [place] [address] [id number] Sep, [facility] [address] [id number] Sep, [facility] [id number] [place] [id number] Sep, [facility] [address] [id number] Sep, Generalized abdominal pain R10.84 [facility] [address] [address] 2546 Sep, [facility] [id number] [place] [address] [id number] Sep, Generalized anxiety disorder F41.1 and Primary insomnia F51.01 [facility] [id number] [place] [address] [id number] Aug, [facility] [id number] [place] [id number] Aug, Generalized anxiety disorder F41.1 [facility] [address] [address]- 1162 Jul, [facility] [address] [id number] Jul, Obsessive thinking F42.8 [facility] [address] [address]- 3627 Jul, Generalized anxiety disorder F41.1 and Irritable bowel syndrome with diarrhea K58.0 [facility] [id number] [place] [id number] Jul, Generalized anxiety disorder F41.1 [facility] [id number] [place] [id number] Jun, Generalized anxiety disorder F41.1 [facility] [id number] [address]- 3936 May, [facility] [address] [id number] May, Generalized anxiety disorder F41.1 ; Irritable bowel syndrome with diarrhea K58.0 and Coarse tremors G25.2 [facility] [address] [address]- 6174 April, [facility] [address] [address]- 5173 April, [facility] [address] [address]- 0011 April, [facility] [address] [place] [address] 47562- 8148 Mar, [facility] [address] [place] [id number] Mar, Severe episode of recurrent major depressive disorder, without psychotic features F33.2 and Pain in left hip M25.552 [facility] [id number] [address]- 7399 Mar, [facility] [id number] [place] [address] 29148- 8529 Mar, [facility] [id number] [address]- 8804 Mar, [facility] [id number] [place] [address] 73015- 5104 Mar, Pain in right hip M25.551 and Self-care deficit in patient living alone R46.89 [facility] [address] [address] Jan, Other chronic pain G89.29 ; Pain in left hip M25.552 and Slow transit constipation K59.01 [facility] [address] [address]- 7748 Jan, [facility] [id number] [place] [address] 27344- 4380 Dec, Other depression F32.89 ; Constipation, unspecified constipation type K59.00 and Insomnia, unspecified type G47.00 [facility] [id number] [place] [address] 36698- 0322 Nov, Reactive depression F32.9 ; Chronic idiopathic constipation K59.04 ; Generalized anxiety disorder F41.1 ; Coarse tremors G25.2 ; Gastroesophageal reflux disease without esophagitis K21.9 ; Dysthymic disorder F34.1 ; Vitamin deficiency, unspecified E56.9 and Primary insomnia F51.01 [facility] [id number] [place] [address] 44352- 0917 Nov, [facility] [address] 34405- 0609 Nov, [facility] [address] 40107- 7382 Nov, [facility] [address] 82110- 3949 Nov, Reactive depression F32.9 ; Essential hypertension I10 ; Generalized anxiety disorder F41.1 ; Atherosclerotic heart disease of [place] 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 ; Pain in right hip M25.551 ; Other chronic pain G89.29 ; Chronic idiopathic constipation K59.04 ; Primary insomnia F51.01 ; Coarse tremors G25.2 ; Gastroesophageal reflux disease without esophagitis K21.9 ; Iron deficiency anemia secondary to inadequate dietary iron intake D50.8 and Vitamin deficiency, unspecified E56.9 [facility] [id number] [place] [address] 37198- 3718 Oct, [facility] [id number] [place] [address] 28508- 3314 Oct, [facility] [id number] [place] [address] 92202- 2707 Oct, [address] 69370- 3537 Oct, Generalized anxiety disorder F41.1 ; Poor appetite R63.0 ; Dehydration E86.0 and Failure to thrive in adult R62.[address] 94893- 7626 Oct, Generalized anxiety disorder F41.1 and Failure to thrive in adult R62.7 [facility] [id number] [place] [address] 20727- 8814 Oct, [facility] [id number] [place] [address] 94733- 7562 Oct, [facility] [id number] [place] [address] 73050 -5410 Sep, Vaginal discharge N89.8 and Acute cystitis with hematuria N30.01 [facility] [id number] [place] [address] 70659- 0320 Sep, [facility] [address] 28540- 6382 Sep, [facility] [id number] [place] [address] 56205- 2802 Sep, Dysthymic disorder F34.1 ; Acute vaginitis N76.0 ; Dysuria R30.0 and Vaginal yeast infection B37.3 [facility] [id number] [place] [address] 00341- 2534 Aug, [facility] [id number] [place] [address] 13720- 6725 Aug, [facility] [id number] [place] [address] 74817 -0940 Aug, Foul smelling urine R82.90 ; Rapid heart rate R00.0 and Flatulence R14.3 [facility] [address] [place] [address] 67130- 3568 Aug, [facility] [id number] [place] [address] 53046- 1843 Jul, Constipation, unspecified constipation type K59.00 ; Weak R53.1 ; Poor appetite R63.0 ; Coronary artery disease involving [place] heart without angina pectoris, unspecified vessel or lesion type I25.10 ; Fatigue, unspecified type R53.83 ; Urinary incontinence, unspecified type R32 and Insomnia, unspecified type G47.00 [facility] [id number] [place] [address] 99493- 8052 Jul, [facility] [id number] [place] [address] 37589- 0919 Jun, Dysuria R30.0 [facility] [id number] [place] [address] 25977- 8798 Jun, [facility] [id number] [place] [address] 53678- 1832 Jun, Urinary tract infection, site not specified N39.0 ; Acute vaginitis N76.0 and Diarrhea, unspecified type R19.7 [facility] [id number] [place] [address] 23154- 8262 May, [facility] [id number] [place] [address] 15885- 7689 April, [facility] [place] [facility] [id number] [place] [address] [id number] April, Encounter for dental examination Z01.20 [facility] [id number] [place] [address] 31878- 9832 April, [facility] [id number] [place] [address] 95287- 0551 April, Tremor R25.1 and Episodic tension-type headache, not intractable G44.219 [facility] [id number] [place] [address] 87016- 3604 Mar, [facility] [id number] [place] [address] 24314- 4347 Jan, Mood disorder F39 [facility] [address] [place] [address] 78582 -8856 Jan, [facility] [id number] [place] [address] 78720- 1763 Jan, [facility] [address] [address]- 5240 Jan, [facility] [id number] [place] [address] 56738- 0803 Jan, [facility] [address] [place] [address] 67863- 2936 Jan, [facility] [id number] [place] [address] 88827- 8246 Jan, [facility] [address] [place] [address] 16500 -1733 Dec, Acute diarrhea R19.7 [facility] [id number] [place] [address] 15089- 2441 Dec, [facility] [id number] [place] [address] 01192- 7725 Dec, [facility] [id number] [place] [address] 53073- 6116 Dec, [facility] [address] [place] [address] 63030 -1336 Dec, N&V (nausea and vomiting) R11.2 [facility] [address] [place] [address] 23960- 4196 Dec, Generalized anxiety disorder F41.1 [facility] [address] [place] [address] 23168- 8903 Dec, Generalized anxiety disorder F41.1 [facility] [address] [place] [address] 68071- 1498 Nov, Post concussion syndrome F07.81 [facility] [address] [place] [address] 39276- 2943 Nov, Generalized anxiety disorder F41.1 [facility] [address] [place] [address] 17931- 1533 Nov, [facility] [address] [place] [address] 59352- 4598 Nov, Generalized anxiety disorder F41.1 [facility] [place] [facility] [id number] [place] [address] [id number] Oct, Dental caries K02.9 [facility] [id number] [place] [address] 91719- 1335 Oct, [facility] [place] [facility] [id number] [place] [address] [id number] Oct, Dental examination Z01.20 [facility] [place] [facility] [address] [id number] Oct, Encounter for dental examination Z01.20 [facility] [address] 65215- 1784 Oct, CAD (coronary artery disease) I25.10 [facility] [id number] [place] [address] 33880- 1344 Sep, Generalized anxiety disorder F41.1 [facility] [id number] [place] [address] 24778- 1781 Sep, [facility] [address] 60940- 3804 Sep, Rash and other nonspecific skin eruption R21 and Yeast vaginitis B37.3 [facility] [id number] [place] [address] 48384- 3530 Sep, Generalized anxiety disorder F41.1 [facility] [id number] [place] [address] 92593- 8358 Aug, Insect bites 919.4 and Hemorrhoids 455.6 [facility] [id number] [place] [address] 44891- 7049 Aug, Generalized anxiety disorder 300.02 [facility] [id number] [place] [address] 18282- 3605 Aug, [facility] [id number] [place] [address] 96060- 4112 Aug, [facility] [id number] [place] [address] 65275- 1911 Aug, Generalized anxiety disorder 300.02 ; No condition on [place] II V71.09 ; Heart problem 429.9 and Hypertension 401.9 [facility] [id number] [place] [address] 03990- 0924 Aug, [facility] [id number] [place] [address] 67918- 4990 Jul, [facility] [id number] [place] [address] 59023- 7703 Jul, [facility] [id number] [place] [address] 20075- 7876 Jul, [facility] [id number] [place] [address] 34087- 3479 Jul, [facility] [id number] [place] [address] 30207- 8255 Jul, Rash 782.1 [facility] [id number] [place] [address] 62027- 4016 Jul, UTI (urinary tract infection) 599.0 [facility] [id number] [place] [address] 91585- 1764 Jul, [facility] [id number] [place] [address] 03385- 6898 Jun, Dysthymia 300.4 and Anxiety 300.00 [facility] [id number] [place] [address] 87710- 5684 Jun, 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 [facility] [address] [place] [address] 15356- 4287 May, [facility] [id number] [place] [address] 32091- 3112 May, [facility] [address] [id number] [address]- 2546 May, Unspecified breast screening V76.10 [facility] [place] [facility] [address] [id number] [id number] May, Dental examination V72.2 [facility] [address] [id number] [address]- 2546 April, [facility] [address] [id number] [place] [address]- 2546 April, [facility] [place] [facility] [address] [id number] [place] [id number] April, Dental examination V72.2 [facility] [place] [facility] [address] [id number] [place] [id number] April, Dental examination V72.2 [facility] [address] [id number] [place] [address]- 9536 Mar, [facility] [address] [id number] [place] [address]- 2396 Mar, [facility] [address] [id number] [place] [address]- 4326 Jan, [facility] [address] [id number] [place] [address]- 2616 Jan, [facility] [address] [id number] [place] [address]- 6536 18 Jan, 2015 [facility] [address] [id number] [place] [address]- 2546 18 Jan, 2015 [facility] [address] [id number] [place] [address]- 2546 16 Jan, 2015 [facility] [address] [id number] [place] [address]- 2546 16 Jan, 2015 [facility] [address] [id number] [place] [address]- 4920 13 Jan, 2015 [facility] [place] [facility] [address] [id number] [place] [address]- 9589 13 Jan, 2015 [facility] [place] [facility] [address] [id number] [place] [address]- 5851 Jan, [facility] [place] [facility] [address] [id number] [place] [address]- 1923 Jan, [facility] [place] [facility] [address] [id number] [place] [address]- 6058 Jan, 2014 [facility] [place] [facility] [address] [id number] [place] [address] Jan, [facility] [place] [facility] [address] [id number] [place] [address] Jan, [facility] [place] [facility] [address] [facility] [id number] [place] [address] Jan, [facility] [place] [facility] [address] [id number] [place] [address] Jan, 2014 [facility] [place] [facility] [address] [id number] [place] [address] Jan, 2014 [facility] [place] [facility] [address] [facility] [id number] [place] [address] Jan, 2014 [facility] [place] [facility] [address] [id number] [place] [address] Jan, 2014 [facility] [place] [facility] [address] [id number] [place] [address] Jan, 2014 [facility] [place] [facility] [address] [id number] [place] [address] Jan, 2014 [facility] [place] [facility] [address] [id number] [place] [address] Jan, 2014 [facility] [place] [facility] [address] [facility] [id number] [place] [address] [address] Jan, 2014 [facility] [place] [facility] [address] [id number] [place] [address] Dec, [facility] [address] [id number] [place] [address] Dec, [facility] [place] [facility] [address] [id number] [place] [address] Dec, [facility] [address] [id number] [place] [address] Dec, [facility] [place] [facility] [address] [id number] [place] [address] Nov, [facility] [address] [id number] [place] [address] Nov, [facility] [address] [id number] [place] [address] Nov, [facility] [address] [address] [id number] [place] [address] Nov, [facility] [address] [id number] [place] [address] Nov, [facility] [place] [facility] [address] [id number] [place] [address] Nov, [facility] [address] [id number] [place] [address] Nov, [facility] [place] [facility] [address] [id number] [place] [address] Oct, [facility] [place] [facility] [address] [id number] [place] [address] Oct, [facility] [place] [facility] [address] [id number] [place] [address] 1620 Oct, [facility] [place] [facility] [address] [id number] [place] [address]295 Oct, [facility] [place] [facility] [address] [id number] [place] [address] Oct, [facility] [place] [facility] [address] [id number] [place] [address] 2811 Oct, [facility] [place] [facility] [address] [id number] [place] [address] 8509 Oct, [facility] [place] [facility] [address] [id number] [place] [address] 2170 Oct, [facility] [place] [facility] [address] [id number] [place] [address] 6911 Oct, [facility] [place] [facility] [address] [id number] [place] [address] 7432 Oct, [facility] [place] [facility] [address] [id number] [place] [address]- 6050 Oct, [facility] [place] [facility] [address] [id number] [place] [address] 8558 Oct, [facility] [place] [facility] [address] [id number] [place] [address]- 0378 Sep, [facility] [place] [facility] [address] [id number] [place] [address] 2731 Sep, [facility] [place] [facility] [address] [id number] [place] [address]- 0715 Sep, [facility] [place] [facility] [address] [id number] [place] [address] Sep, [facility] [place] [facility] [address] [id number] [place] [address] Jul, [facility] [place] [facility] [address] [id number] [place] [address]117 Jul, [facility] [place] [facility] [address] [id number] [place] [address] Jul, [facility] [place] [facility] [address] [id number] [place] [address] 28[address] Jul, [facility] [place] [facility] [address] [id number] [place] [address] Jun, [facility] [address] [id number] [place] [address] 2675 Jun, [facility] [place] [facility] [address] [id number] [place] [address]- 7448 Jun, [facility] [place] [facility] [address] [id number] [place] [address]- 9978 Jun, [facility] [place] [facility] [address] [id number] [place] [address]- 3579 May, [facility] [place] [facility] [address] [id number] [place] [address] 9948 May, [facility] [place] [facility] [address] [id number] [place] [address] 9559 April, [facility] [address] [id number] [place] [address]- 9745 April, [facility] [place] [facility] [address] [id number] [place] [address] 7331 April, [facility] [place] [facility] [address] [id number] [place] [address] 75[address] April, [facility] [place] [facility] [address] [id number] [place] [address]- 9673 April, [facility] [place] [facility] [address] [id number] [place] [address] 130[address] April, [facility] [place] [facility] [address] [id number] [place] [address]- 8853 April, [facility] [place] [facility] [address] [id number] [place] [address]- 6167 April, [facility] [place] [facility] [address] [id number] [place] [address]- 00[address] April, [facility] [place] [facility] [address] [id number] [place] [address] 8059 Mar, [facility] [place] [facility] [address] [id number] [place] [address]- 5115 Mar, [facility] [place] [facility] [address] [id number] [place] [address]- 2370 Mar, [facility] [place] [facility] [address] [id number] [place] [address]- 9903 Mar, [facility] [place] [facility] [address] [id number] [place] [address] 8915 Jan, [facility] [place] [facility] [address] [id number] [place] [address]- 96[address] Jan, [facility] [place] [facility] [address] [id number] [place] [address]- 2068 Jan, [facility] [place] [facility] [address] [id number] [place] [address]- 0180 Jan, [facility] [place] [facility] [address] [id number] [place] [address]- 5321 Jan, [facility] [place] [facility] [address] [id number] [place] [address]- 0331 Jan, [facility] [place] [facility] [address] [id number] [place] [address]- 9336 Jan, [facility] [place] [facility] [address] [id number] [place] [address]- 8105 Jan, [facility] [place] [facility] [address] [id number] [place] [address]- 2511 Jan, [facility] [place] [facility] [address] [id number] [place] [address]- 1272 Jan, [facility] [place] [facility] [address] [id number] [place] [address]- 4141 Jan, [facility] [place] [facility] [address] [id number] [place] [address] 1988 Jan, [facility] [place] [facility] [address] [id number] [place] [address]- 7015 Dec, [facility] [place] [facility] [address] [id number] [place] [address]- 8489 Dec, [facility] [place] [facility] [address] [id number] [place] [address]- 1640 Dec, [facility] [place] [facility] [address] [id number] [place] [address]- 2982 Dec, [facility] [place] [facility] [address] [id number] [place] [address]- 9957 Nov, [facility] [place] [facility] [address] [id number] [place] [address]- 9690 Nov, [facility] [place] [facility] [address] [id number] [place] [address]- 9583 Nov, [facility] [place] [facility] [address] [id number] [place] [address]- 0873 Nov, [facility] [place] [facility] [address] [id number] [place] [address]- 3415 Oct, [facility] [place] [facility] [address] [id number] [place] [address]- 9108 Oct, [facility] [place] [facility] [address] [id number] [place] [address]- 4392 Sep, [facility] [place] [facility] [address] [id number] [place] [address]- 4077 Sep, [facility] [place] [facility] [address] [id number] [place] [address]- 7687 Jul, [facility] [place] [facility] [address] [id number] [place] [address]- 3371 Jul, [facility] [place] [facility] [address] [id number] [place] [address]- 3495 Jun, [facility] [place] [facility] [address] [id number] [place] [address]- 3762 Jun, [facility] [place] [facility] [address] [id number] [place] [address]- 6816 18 Jun, 2013 [facility] [address] [id number] [place] [address]- 3042 May, [facility] [address] [id number] [place] [address]- 8028 May, [facility] [address] [id number] [place] [address]- 8607 May, [facility] [address] [id number] [place] [address]- 7647 May, [facility] [address] [id number] [place] [address]- 9390 May, [facility] [address] [id number] [place] [address]- 7201 April, [facility] [address] [id number] [place] [address]- 8582 April, [facility] [address] [id number] [place] [address]- 3167 April, [facility] [address] [id number] [place] [address]- 9566 April, [facility] [address] [id number] [place] [address]- 6962 April, [facility] [address] [id number] [place] [address]- 6365 April, [facility] [address] [id number] [place] [address]- 4199 Mar, [facility] [address] [id number] [place] [address]- 4367 Mar, [facility] [address] [id number] [place] [address]- 3116 Jan, [facility] [address] [id number] [place] [address]- 5157 Jan, [facility] [address] [id number] [place] [address]- 0104 Jan, [facility] [place] [facility] [address] [id number] [place] [address]- 4173 Jan, [facility] [address] [id number] [place] [address]- 4544 Jan, [facility] [place] [facility] [address] [id number] [place] [address]- 0048 Jan, [facility] [address] [id number] [place] [address]- 6570 Jan, [facility] [place] [facility] [address] [id number] [place] [address]- 6185 Jan, [facility] [address] [id number] [place] [address]- 0137 Jan, [facility] [place] [facility] [address] [id number] [place] [address]- 1566 Jan, [facility] [address] [id number] [place] [address]- 4501 Jan, [facility] [place] [facility] [address] [id number] [place] [address]- 4876 Dec, [facility] [address] [id number] [place] [address]- 4783 Nov, [facility] [place] [facility] [address] [id number] [place] [address]- 6294 Nov, [facility] [place] [facility] [address] [id number] [place] [address]- 8442 Nov, [facility] [place] [facility] [address] [id number] [place] [address]- 1241 Nov, [facility] [place] [facility] [address] [facility] [id number] [place] [address]- 6946 Nov, [facility] [place] [facility] [address] [id number] [place] [address]- 5666 20 Nov, 2012 [facility] [address] [id number] [place] [address]- 4990 20 Nov, 2012 [facility] [place] [facility] [address] [id number] [place] [address]- 6269 19 Nov, 2012 [facility] [address] [id number] [place] [address]- 8330 Nov, [facility] [place] [facility] [address] [id number] [place] [address]- 5013 18 Nov, 2012 [facility] [address] [id number] [place] [address], [place] [address]- 6020 18 Nov, 2012 [facility] [address] [facility] [id number] [place] [address]- 3484 Nov, [facility] [address] [facility] [id number] [place] [address]- 4242 Nov, [facility] [address] [id number] [place] [address]- 8650 Oct, [facility] [place] [facility] [address] [facility] [id number] [place] [address]- 1098 Oct, [facility] [address] [facility] [id number] [place] [address]- 1215 Oct, [facility] [place] [facility] [address] [facility] [id number] [place] [address]- 5258 Sep, [facility] [place] [facility] [address] [id number] [place] [address]- 9229 Sep, [facility] [place] [facility] [address] [facility] [id number] [place] [address]- 7658 10 Sep, 2012 [facility] [place] [facility] [address] [facility] [id number] [place] [address]- 0280 10 Sep, 2012 [facility] [place] [facility] [address] [facility] [id number] [place] [address]- 2006 Aug, [facility] [place] [facility] [address] [id number] [place] [address]- 6048 Aug, [facility] [place] [facility] [address] [id number] [place] [address]- 4805 Jul, [facility] [place] [facility] [address] [id number] [place] [address]- 1947 May, [facility] [place] [facility] [address] [id number] [place] [address]- 9842 May, [facility] [place] [facility] [address] [id number] [place] [address]- 0398 May, [facility] [place] [facility] [address] [id number] [place] [address]- 8316 April, [facility] [place] [facility] [address] [id number] [place] [address]- 3465 Mar, [facility] [place] [facility] [address] [id number] [place] [address]- 5813 Mar, [facility] [place] [facility] [address] [id number] [place] [address]- 9445 Mar, [facility] [place] [facility] [address] [id number] [place] [address]- 9234 Jan, [facility] [place] [facility] [address] [id number] [place] [address]- 8279 Jan, [facility] [place] [facility] [address] [id number] [place] [address]- 2687 Jan, [facility] [place] [facility] [address] [id number] [place] [address]- 9850 Dec, [facility] [place] [facility] [address] [id number] [place] [address]- 9756 Dec, [facility] [place] [facility] [address] [id number] [place] [address]- 5723 Dec, [facility] [place] [facility] [address] [id number] [place] [address]- 8465 03 Dec, 2011 [facility] [place] [facility] [address] [id number] [place] [address]- 4216 28 Nov, 2011 [facility] [place] [facility] [address] [id number] [place] [address] 15 Nov, 2011 [facility] [place] [facility] [address] [facility] [id number] [place] [address]- 1626 03 Nov, 2011 [facility] [place] [facility] [address] [id number] [place] [address]- 8176 03 Oct, 2011 [facility] [place] [facility] [address] [id number] [place] [address]- 4353 31 Sep, 2011 [facility] [place] [facility] [address] [id number] [place] [address]- 3485 26 Sep, 2011 [facility] [place] [facility] [address] [facility] [id number] [place] [address]- 7547 13 Sep, 2011 [facility] [place] [facility] [address] [id number] [place] [address]- 2920 15 Nov, 2010 [facility] [place] [facility] [address] [facility] [id number] [place] [address]- 4207 23 Oct, 2010 [facility] [place] [facility] [address] [facility] [id number] [place] [address]- 7808 Oct, [facility] [place] [facility] [address] [id number] [place] [address]- 4961 18 Oct, 2010 [facility] [place] [facility] [address] [id number] [place] [address]- 7877 16 Oct, 2010 [facility] [place] [facility] [address] [id number] [place] [address]- 9518 11 Sep, 2010 [facility] [place] [facility] [address] [facility] [id number] [place] [address]- 4038 April, [facility] [place] [facility] [address] [facility] [id number] [place] [address]- 8504 29 Nov, 2009 [facility] [place] [facility] [address] [id number] [address] Nov, [facility] [address] [id number] [address]- 8166 Nov, [facility] [id number] [address]- 0401 Nov, [facility] [id number] [address] Nov, [facility] [id number] [address] Oct, [facility] [id number] [address]8 Oct, [facility] [id number] [address]- 3154 Sep, [facility] [id number] [address]49 Jan, IMMUNIZATIONS No Known Immunizations SOCIAL HISTORY [...] thoughts Medical History Depression Medical History At [facility] 04/2016 Started on Eliquis Medical History Anemia 04/2016 postsurgical hip fx Surgical History right hip replacement w/ Dr. Bruce 2011 Surgical History triple bypass surgery 2003 Surgical History S/P left hip IM Nail (Intertrechanteric hip fx) 04/28/16 Hospitalization History surgeries Hospitalization History Hypertension Hospitalization History ER for a concussion 11/24/15 Hospitalization History Intertrechanteric hip fx 04/27/16 Hospitalization History [facility] (inpatient [facility] times) Hx of 3 inpatient psych treatments in past in [place] oct 2016 [facility] 2016
--- OUTSIDE RECORDS SUMMARY | 2019-02-11 14:31 | XMS REPORT ---
Author Author WOLF AGUIRRE [facility] Address [address] [place] [address] Care Team Providers Care Maintenance Carpenter Name Role Phone WOLF AGUIRRE Unavailable PROBLEMS Type Condition ICD9-CM Code FJO02-KO Code Onset Dates Condition Status SNOMED Code Problem Sundowning F05 Active 117086739 Problem Constipation, unspecified constipation type K59.00 Active 13903397 Problem Reactive depression F32.9 Active 63931886 Problem Vascular dementia with behavior disturbance F01.51 Active 400209966668886 Problem Insomnia, unspecified type G47.00 Active 016360559 Problem Generalized anxiety disorder F41.1 Active 60534386 Problem Other chronic pain G89.29 Active 41462394 Problem Severe episode of recurrent major depressive disorder, without psychotic features F33.2 Active 75516853 Problem Slow transit constipation K59.01 Active 35772608 Problem 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 Active 509755445 Problem Obsessive thinking F42.8 Active 59170644 Problem Failure to thrive in adult R62.7 Active 494356986 Problem Dysthymic disorder F34.1 Active 18916966 Problem Hypertension I10 Active 95111732 Problem Mood disorder F39 Active 14296853 Problem Irritable bowel syndrome with diarrhea K58.0 Active 682527092 Problem Oropharyngeal dysphagia R13.12 Active 13229076 Problem 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 Active 30520612 Problem Other chronic pain G89.29 Active 77516273 Problem Primary insomnia F51.01 Active 3894286 Problem Poor appetite R63.0 Active 66000813 Problem 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 Active 601391823379405 Problem Iron deficiency anemia secondary to inadequate dietary iron intake D50.8 Active 445836309 Problem Coarse tremors G25.2 Active 59211311 Problem Gastroesophageal reflux disease without esophagitis K21.9 Active 471661649 Problem Essential hypertension I10 Active 17985755 ALLERGIES No Information ENCOUNTERS Encounter Location Date Diagnosis [facility] [address], [place] [address] Sep, [facility] [id number] [place] [address] 33999- 6701 Sep, [facility] [address] [id number] Sep, Obsessive thinking F42.8 [facility] [id number] [place] [address] 70615- 2637 Sep, [facility] [id number] [place] [address] 35906- 3984 Sep, [facility] [id number] [place] [address] 57002- 6268 Aug, [facility] [id number] [place] [address] 92853- 4136 Aug, [facility] [id number] [place] [address] 13699- 0279 Aug, Positive urine drug screen R82.[address] [facility] [address] [id number] Aug, [facility] [id number] [place] [address] 37840- 1125 Aug, [facility] [id number] [place] [address] 03690- 0998 Aug, [facility] [id number] [place] [address] 71843- 4935 17 Aug, 2018 Irritable bowel syndrome with diarrhea K58.0 [facility] [id number] [place] [address] 57246- 2239 Aug, [facility] [id number] [place] [address] 72622- 2038 Aug, Obsessive thinking F42.8 ; Insomnia, unspecified type G47.00 and Other chronic pain G89.29 [facility] [place] [address] [place] [id number] Aug, Obsessive thinking F42.8 ; Irritable bowel syndrome with diarrhea K58.0 ; Pain in right foot M79.671 ; Pain of left foot M79.672 and Gastroesophageal reflux disease without esophagitis K21.9 [facility] [address], [place] [address] 69[address] Aug, [facility] [id number] [place] [address] 59396- 2388 Jul, [facility] [id number] [place] [address] 08641- 4902 Jun, [facility] [id number] [place] [address] 95768- 9716 Jun, [facility] [place] [address] [place] [id number] Jun, Left lower quadrant pain R10.32 and Left leg pain M79.605 [facility] [id number] [place] [address] 10171- 3120 Jun, [facility] [place] [address] [place] [id number] Jun, Pain in left hip M25.552 ; Pain in right hip M25.551 and Primary insomnia F51.01 [facility] [address], [place] [address] Jun, [facility] [place] [address] [place] [id number] May, [facility] [address], [place] [address] 8[address] May, [facility] [id number] [place] [address] 04364- 1296 May, [facility] [address] [place] [id number] May, Mood disorder F39 [facility] [id number] [place] [address] 66724- 0827 May, [facility] [id number] [place] [address] 82598- 3579 April, [facility] [place] [address] [place] [id number] April, Generalized anxiety disorder F41.1 ; Obsessive thinking F42.8 and Insomnia , unspecified type G47.00 [facility] [id number] [place] [address] 26986- 4141 April, [facility] [id number] [place] [address] 37322- 3393 April, Rash of face R21 [facility] [address] 87606- 7918 Mar, [facility] [id number] [place] [address] 03472- 3374 Mar, [facility] [id number] [place] [address] 55238- 9118 Mar, [facility] [id number] [place] [address] 18725- 5325 Jan, [facility] [id number] [place] [address] 09575- 1354 Jan, [facility] [place] [address] [place] [id number] Jan, Constipation, unspecified constipation type K59.00 and Other chronic pain G89.29 [facility] [id number] [place] [address] 04636- 1279 Jan, [facility] [place] [address] [place] [id number] Jan, Obsessive thinking F42.8 and Coarse tremors G25.2 [facility] [id number] [place] [address] [id number] Jan, [facility] [id number] [place] [address] [id number] Jan, [facility] [place] [address] [place] [id number] Jan, Generalized anxiety disorder F41.1 ; Obsessive thinking F42.8 ; Callus of foot L84 and 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 [facility] [id number] [place] [address] [id number]- 3400 Dec, Generalized anxiety disorder F41.1 and Severe episode of recurrent major depressive disorder, without psychotic features F33.2 [facility] [id number] [place] [address] 68992- 4642 Nov, [facility] [id number] [place] [address] 18575- 2721 Nov, [facility] [id number] Nov, Oropharyngeal dysphagia R13.12 ; Generalized anxiety disorder F41.1 and 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 [facility] [id number] [place] [address] 69681- 3475 Nov, [facility] [id number] [place] [address] [id number] Nov, [facility] [id number] [place] [address] 09830- 7545 Nov, [facility] [id number] [place] [address] 43903- 6792 Nov, [facility] [id number] [place] [address] 03968- 3395 Oct, Constipation, unspecified constipation type K59.00 and Mood disorder F39 [facility] [id number] [place] [address] 63595- 4722 Oct, [facility] [id number] [place] [address] [id number] Sep, [facility] [id number] [place] [address] [id number] Sep, [facility] [address] [id number] Sep, [facility] [id number] [id number] Sep, [facility] [address] [id number] Sep, Generalized abdominal pain R10.84 [facility] [address], [place] [address] 2546 Sep, [facility] [id number] [place] [address] [id number] Sep, Generalized anxiety disorder F41.1 and Primary insomnia F51.01 [facility] [id number] [place] [address] [id number] Aug, [facility] [id number] [id number] Aug, Generalized anxiety disorder F41.1 [facility] [address], [place] [address] Jul, [facility] [address] [id number] Jul, Obsessive thinking F42.8 [facility] [address], [place] [address] 7210 Jul, Generalized anxiety disorder F41.1 and Irritable bowel syndrome with diarrhea K58.0 [facility] [id number] [id number] Jul, Generalized anxiety disorder F41.1 [facility] [id number] [id number] Jun, Generalized anxiety disorder F41.1 [facility] [id number], [place] [address] May, [facility] [address] [id number] May, Generalized anxiety disorder F41.1 ; Irritable bowel syndrome with diarrhea K58.0 and Coarse tremors G25.2 [facility] [address], [place] [address] 7948 April, [facility] [address], [place] [address]- 5240 April, [facility] [address], [place] [address]- 2255 April, [facility] [id number] [place] [address] 16072- 8170 Mar, [facility] [place] [address] [place] [id number] Mar, Severe episode of recurrent major depressive disorder, without psychotic features F33.2 and Pain in left hip M25.552 [facility] [id number], [place] [address]- 6340 Mar, [facility] [id number] [place] [address] 90231- 3688 Mar, [facility] [id number], [place] [address]- 4562 Mar, [facility] [id number] [place] [address] 22146- 3444 Mar, Pain in right hip M25.551 and Self-care deficit in patient living alone R46.89 [facility] [address], [place] [address] Jan, Other chronic pain G89.29 ; Pain in left hip M25.552 and Slow transit constipation K59.01 [facility] [address], [place] [address]- 5313 Jan, [facility] [id number] [place] [address] 35890- 8531 Dec, Other depression F32.89 ; Constipation, unspecified constipation type K59.00 and Insomnia, unspecified type G47.00 [facility] [id number] [place] [address] 50535- 2902 Nov, Reactive depression F32.9 ; Chronic idiopathic constipation K59.04 ; Generalized anxiety disorder F41.1 ; Coarse tremors G25.2 ; Gastroesophageal reflux disease without esophagitis K21.9 ; Dysthymic disorder F34.1 ; Vitamin deficiency, unspecified E56.9 and Primary insomnia F51.01 [facility] [id number] [place] [address] 03185- 5067 Nov, [facility] [address] 24790- 7243 Nov, [facility] [address] 16108- 0488 Nov, [facility] [address] 96937- 8885 Nov, Reactive depression F32.9 ; Essential hypertension I10 ; Generalized anxiety disorder F41.1 ; 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 ; Pain in right hip M25.551 ; Other chronic pain G89.29 ; Chronic idiopathic constipation K59.04 ; Primary insomnia F51.01 ; Coarse tremors G25.2 ; Gastroesophageal reflux disease without esophagitis K21.9 ; Iron deficiency anemia secondary to inadequate dietary iron intake D50.8 and Vitamin deficiency, unspecified E56.9 [facility] [id number] [place] [address] 73413- 4639 Oct, [facility] [id number] [place] [address] 05464- 0157 Oct, [facility] [id number] [place] [address] 20374- 0898 Oct, [address] 81068- 7227 Oct, Generalized anxiety disorder F41.1 ; Poor appetite R63.0 ; Dehydration E86.0 and Failure to thrive in adult R62.[address] 92301- 8585 Oct, Generalized anxiety disorder F41.1 and Failure to thrive in adult R62.7 [facility] [id number] [place] [address] 07034- 7862 Oct, [facility] [id number] [place] [address] 28121- 3678 Oct, [facility] [id number] [place] [address] 64498 -9128 Sep, Vaginal discharge N89.8 and Acute cystitis with hematuria N30.01 [facility] [id number] [place] [address] 44710- 0926 Sep, [facility] [address] 68665- 6117 Sep, [facility] [id number] [place] [address] 94674- 7678 Sep, Dysthymic disorder F34.1 ; Acute vaginitis N76.0 ; Dysuria R30.0 and Vaginal yeast infection B37.3 [facility] [id number] [place] [address] 25839- 1619 Aug, [facility] [id number] [place] [address] 94473- 0055 Aug, [facility] [id number] [place] [address] 74215 -2506 Aug, Foul smelling urine R82.90 ; Rapid heart rate R00.0 and Flatulence R14.3 [facility] [address] [place] [address] 07065- 9578 Aug, [facility] [id number] [place] [address] 56496- 0658 Jul, Constipation, unspecified constipation type K59.00 ; Weak R53.1 ; Poor appetite R63.0 ; Coronary artery disease involving [place] heart without angina pectoris, unspecified vessel or lesion type I25.10 ; Fatigue, unspecified type R53.83 ; Urinary incontinence, unspecified type R32 and Insomnia, unspecified type G47.00 [facility] [id number] [place] [address] 69165- 7693 Jul, [facility] [id number] [place] [address] 95856- 4771 Jun, Dysuria R30.0 [facility] [id number] [place] [address] 03169- 0052 Jun, [facility] [id number] [place] [address] 03236- 5339 Jun, Urinary tract infection, site not specified N39.0 ; Acute vaginitis N76.0 and Diarrhea, unspecified type R19.7 [facility] [id number] [place] [address] 16559- 0889 May, [facility] [id number] [place] [address] 54274- 1032 April, [facility] [id number] [place] [address] [id number] April, Encounter for dental examination Z01.20 [facility] [id number] [place] [address] 42979- 1609 April, [facility] [id number] [place] [address] 69923- 4867 April, Tremor R25.1 and Episodic tension-type headache, not intractable G44.219 [facility] [id number] [place] [address] 90077- 2975 Mar, [facility] [id number] [place] [address] 00066- 9265 Jan, Mood disorder F39 [facility] [address] [place] [address] 78323 -8201 Jan, [facility] [id number] [place] [address] 20645- 6321 Jan, [facility] [address], [place] [address]- 2441 Jan, [facility] [id number] [place] [address] 48018- 8918 Jan, [facility] [address] [place] [address] 94613- 8880 Jan, [facility] [id number] [place] [address] 59071- 5355 Jan, [facility] [address] [place] [address] 69233 -4994 Dec, Acute diarrhea R19.7 [facility] [id number] [place] [address] 80515- 2134 Dec, [facility] [id number] [place] [address] 28944- 0141 Dec, [facility] [address] [place] [address] 96639- 6304 Dec, [facility] [address] [place] [address] 71565 -5898 Dec, N&V (nausea and vomiting) R11.2 [facility] [address] [place] [address] 36744- 7078 Dec, Generalized anxiety disorder F41.1 [facility] [address] [place] [address] 22868- 2679 Dec, Generalized anxiety disorder F41.1 [facility] [address] [place] [address] 19958- 9652 Nov, Post concussion syndrome F07.81 [facility] [address] [place] [address] 51488- 7888 Nov, Generalized anxiety disorder F41.1 [facility] [address] [place] [address] 02296- 1758 Nov, [facility] [address] [place] [address] 25039- 0611 Nov, Generalized anxiety disorder F41.1 [facility] [id number] [place] [address] [id number] Oct, Dental caries K02.9 [facility] [id number] [place] [address] 95443- 5874 Oct, [facility] [id number] [place] [address] [id number] Oct, Dental examination Z01.20 [facility] [address] [id number] Oct, Encounter for dental examination Z01.20 [facility] [address] 15870- 9983 Oct, CAD (coronary artery disease) I25.10 [facility] [id number] [place] [address] 76884- 6805 Sep, Generalized anxiety disorder F41.1 [facility] [id number] [place] [address] 28265- 6917 Sep, [facility] [address] 59491- 3254 Sep, Rash and other nonspecific skin eruption R21 and Yeast vaginitis B37.3 [facility] [id number] [place] [address] 10376- 1602 Sep, Generalized anxiety disorder F41.1 [facility] [id number] [place] [address] 18623- 2909 Aug, Insect bites 919.4 and Hemorrhoids 455.6 [facility] [id number] [place] [address] 23484- 7702 Aug, Generalized anxiety disorder 300.02 [facility] [id number] [place] [address] 25952- 1880 Aug, [facility] [id number] [place] [address] 17412- 3902 Aug, [facility] [id number] [place] [address] 39956- 5062 Aug, Generalized anxiety disorder 300.02 ; No condition on Burnside II V71.09 ; Heart problem 429.9 and Hypertension 401.9 [facility] [id number] [place] [address] 38410- 7235 Aug, [facility] [id number] [place] [address] 75527- 0333 Jul, [facility] [id number] [place] [address] 56504- 4168 Jul, [facility] [id number] [place] [address] 22667- 9551 Jul, [facility] [id number] [place] [address] 43159- 3131 Jul, [facility] [id number] [place] [address] 47196- 5417 Jul, Rash 782.1 [facility] [id number] [place] [address] 18922- 7836 Jul, UTI (urinary tract infection) 599.0 [facility] [id number] [place] [address] 06030- 3134 Jul, [facility] [id number] [place] [address] 29022- 1886 Jun, Dysthymia 300.4 and Anxiety 300.00 [facility] [id number] [place] [address] 07629- 3293 Jun, 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 [facility] [address] [place] [address] 41272- 7539 May, [facility] [id number] [place] [address] 28269- 0378 May, [facility] [address] [id number], [place] [address]- 2546 May, Unspecified breast screening V76.10 [facility] [address] [id number] [id number] May, Dental examination V72.2 [facility] [address] [id number], [place] [address]- 2546 April, [facility] [address] [id number], [place] [address]- 2546 April, [facility] [address] [id number] [id number] April, Dental examination V72.2 [facility] [address] [id number] [id number] April, Dental examination V72.2 [facility] [address] [id number], [place] [address]- 0036 Mar, [facility] [address] [id number], [place] [address]- 3876 Mar, [facility] [address] [id number], [place] [address]- 4586 Jan, [facility] [address] [id number], [place] [address]- 6956 Jan, [facility] [address] [id number], [place] [address]- 3386 18 Jan, 2015 [facility] [address] [id number], [place] [address]- 2546 18 Jan, 2015 [facility] [address] [id number], [place] [address]- 2546 16 Jan, 2015 [facility] [address] [id number], [place] [address]- 2546 16 Jan, 2015 [facility] [address] [id number], [place] [address]- 2059 13 Jan, 2015 [facility] [place] [facility] [address] [id number] [place] [address] 13 Jan, 2015 [facility] [place] [facility] [address] [id number] [place] [address] Jan, [facility] [place] [facility] [address] [id number] [place] [address] Jan, [facility] [place] [facility] [address] [id number] [place] [address] Jan, 2014 [facility] [place] [facility] [address] [id number] [place] [address] Jan, [facility] [place] [facility] [address] [id number] [place] [address] Jan, [facility] [place] [facility] [address] [facility] [id number] [place] [address] Jan, [facility] [place] [facility] [address] [id number] [place] [address] Jan, 2014 [facility] [place] [facility] [address] [id number] [place] [address] Jan, 2014 [facility] [place] [facility] [address] [facility] [id number] [place] [address] Jan, 2014 [facility] [place] [facility] [address] [id number] [place] [address] Jan, 2014 [facility] [place] [facility] [address] [id number] [place] [address] Jan, 2014 [facility] [place] [facility] [address] [id number] [place] [address] Jan, 2014 [facility] [place] [facility] [address] [id number] [place] [address] Jan, 2014 [facility] [place] [facility] [address] [facility] [id number] [place] [address] Jan, 2014 [facility] [place] [facility] [address] [id number] [place] [address] Dec, [facility] [address] [id number] [place] [address]126 Dec, [facility] [place] [facility] [address] [id number] [place] [address] 490[address] Dec, [facility] [address] [id number] [place] [address] 0914 Dec, [facility] [place] [facility] [address] [id number] [place] [address] 8121 Nov, [facility] [address] [id number] [place] [address] 1964 Nov, [facility] [address] [id number] [place] [address] 4205 Nov, [facility] [address] [id number] [place] [address] 8117 Nov, [facility] [address] [id number] [place] [address] 7997 Nov, [facility] [place] [facility] [address] [id number] [place] [address] 2758 Nov, [facility] [address] [id number] [place] [address] 6047 Nov, [facility] [place] [facility] [address] [id number] [place] [address] 6467 Oct, [facility] [place] [facility] [address] [id number] [place] [address]- 2567 Oct, [facility] [place] [facility] [address] [id number] [place] [address]- 5262 Oct, [facility] [place] [facility] [address] [id number] [place] [address]- 0761 Oct, [facility] [place] [facility] [address] [id number] [place] [address] Oct, [facility] [place] [facility] [address] [id number] [place] [address]- 8623 Oct, [facility] [place] [facility] [address] [id number] [place] [address]- 2289 Oct, [facility] [place] [facility] [address] [id number] [place] [address]- 1462 Oct, [facility] [place] [facility] [address] [id number] [place] [address]- 4495 Oct, [facility] [place] [facility] [address] [id number] [place] [address]- 9376 Oct, [facility] [place] [facility] [address] [id number] [place] [address]- 5568 Oct, [facility] [place] [facility] [address] [id number] [place] [address]- 4270 Oct, [facility] [place] [facility] [address] [id number] [place] [address]- 1509 Sep, [facility] [place] [facility] [address] [id number] [place] [address]- 5954 Sep, [facility] [place] [facility] [address] [id number] [place] [address]- 4484 Sep, [facility] [place] [facility] [address] [id number], [place] [address] Sep, [facility] [place] [facility] [address] [id number], [place] [address]- 4[address] Jul, [facility] [place] [facility] [address] [id number] [place] [address]- 2036 Jul, [facility] [place] [facility] [address] [id number] [place] [address]- 5013 Jul, [facility] [place] [facility] [address] [id number], [place] [address] 79[address] Jul, [facility] [place] [facility] [address] [id number], [place] [address]- 3[address] Jun, [facility] [address] [id number] [place] [address]- 8360 Jun, [facility] [place] [facility] [address] [id number] [place] [address]- 6154 Jun, [facility] [place] [facility] [address] [id number] [place] [address]- 8396 Jun, [facility] [place] [facility] [address] [id number] [place] [address]- 7409 May, [facility] [place] [facility] [address] [id number] [place] [address]- 0302 May, [facility] [place] [facility] [address] [id number] [place] [address]- 3703 April, [facility] [address] [id number] [place] [address]- 0830 April, [facility] [place] [facility] [address] [id number] [place] [address]- 3988 April, [facility] [place] [facility] [address] [id number] [place] [address]- 9180 April, [facility] [place] [facility] [address] [id number] [place] [address]- 2148 April, [facility] [place] [facility] [address] [id number] [place] [address]- 4075 April, [facility] [place] [facility] [address] [id number] [place] [address]- 7647 April, [facility] [place] [facility] [address] [id number] [place] [address]- 4034 April, [facility] [place] [facility] [address] [id number] [place] [address]- 6032 April, [facility] [place] [facility] [address] [id number] [place] [address]- 4776 Mar, [facility] [place] [facility] [address] [id number] [place] [address]- 7408 Mar, [facility] [place] [facility] [address] [id number] [place] [address]- 4495 Mar, [facility] [place] [facility] [address] [id number] [place] [address]- 1648 Mar, [facility] [place] [facility] [address] [id number] [place] [address]- 3283 Jan, [facility] [place] [facility] [address] [id number] [place] [address]- 6845 Jan, [facility] [place] [facility] [address] [id number] [place] [address]- 4945 Jan, [facility] [place] [facility] [address] [id number] [place] [address]- 7336 Jan, [facility] [place] [facility] [address] [id number] [place] [address]- 6034 Jan, [facility] [place] [facility] [address] [id number] [place] [address]- 1556 Jan, [facility] [place] [facility] [address] [id number] [place] [address]- 5570 Jan, [facility] [place] [facility] [address] [id number] [place] [address]- 5808 Jan, [facility] [place] [facility] [address] [id number] [place] [address]- 7639 Jan, [facility] [place] [facility] [address] [id number] [place] [address]- 3157 Jan, [facility] [place] [facility] [address] [id number] [place] [address]- 9860 Jan, [facility] [place] [facility] [address] [id number] [place] [address]- 4941 Jan, [facility] [place] [facility] [address] [id number] [place] [address]- 5459 Dec, [facility] [place] [facility] [address] [id number] [place] [address]- 4594 Dec, [facility] [place] [facility] [address] [id number] [place] [address]- 7488 Dec, [facility] [place] [facility] [address] [id number] [place] [address]- 4969 Dec, [facility] [place] [facility] [address] [id number] [place] [address]- 0181 Nov, [facility] [place] [facility] [address] [id number] [place] [address]- 6625 Nov, [facility] [place] [facility] [address] [id number] [place] [address]- 3254 Nov, [facility] [place] [facility] [address] [id number] [place] [address]- 8465 Nov, [facility] [place] [facility] [address] [id number] [place] [address]- 5547 Oct, [facility] [place] [facility] [address] [id number] [place] [address]- 6560 Oct, [facility] [place] [facility] [address] [id number] [place] [address]- 2316 Sep, [facility] [place] [facility] [address] [id number] [place] [address]- 0391 Sep, [facility] [place] [facility] [address] [id number] [place] [address]- 6990 Jul, [facility] [place] [facility] [address] [id number] [place] [address]- 5950 Jul, [facility] [place] [facility] [address] [id number] [place] [address]- 7568 Jun, [facility] [place] [facility] [address] [id number] [place] [address]- 3374 Jun, [facility] [place] [facility] [address] [id number] [place] [address]- 0492 18 Jun, 2013 [facility] [address] [id number] [place] [address]- 4301 May, [facility] [address] [id number] [place] [address]- 2710 May, [facility] [address] [id number] [place] [address]- 6461 May, [facility] [address] [id number] [place] [address]- 0129 May, [facility] [address] [id number] [place] [address]- 2867 May, [facility] [address] [id number] [place] [address]- 5004 April, [facility] [address] [id number] [place] [address]- 0981 April, [facility] [address] [id number] [place] [address]- 0360 April, [facility] [address] [id number] [place] [address]- 3752 April, [facility] [address] [id number] [place] [address]- 8759 April, [facility] [address] [id number] [place] [address]- 4280 April, [facility] [address] [id number] [place] [address]- 5162 Mar, [facility] [address] [id number] [place] [address]- 9106 Mar, [facility] [address] [id number] [place] [address]- 3936 Jan, [facility] [address] [id number] [place] [address]- 8323 Jan, [facility] [address] [id number] [place] [address]- 5107 Jan, [facility] [place] [facility] [address] [id number] [place] [address]- 2363 Jan, [facility] [address] [id number] [place] [address]- 3425 Jan, [facility] [place] [facility] [address] [id number] [place] [address]- 9580 Jan, [facility] [address] [id number] [place] [address]- 0876 Jan, [facility] [place] [facility] [address] [id number] [place] [address]- 6742 Jan, [facility] [address] [id number] [place] [address]- 2035 Jan, [facility] [place] [facility] [address] [id number] [place] [address]- 6388 Jan, [facility] [address] [id number] [place] [address]- 3935 Jan, [facility] [place] [facility] [address] [id number] [place] [address]- 1894 Dec, [facility] [address] [id number] [place] [address]- 6844 Nov, [facility] [place] [facility] [address] [id number] [place] [address]- 2169 Nov, [facility] [place] [facility] [address] [id number] [place] [address]- 1268 Nov, [facility] [place] [facility] [address] [id number] [place] [address]- 1798 Nov, [facility] [place] [facility] [address] [facility] [id number] [place] [address]- 4277 Nov, [facility] [place] [facility] [address] [id number] [place] [address]- 5605 20 Nov, 2012 [facility] [address] [id number] [place] [address]- 9990 20 Nov, 2012 [facility] [place] [facility] [address] [id number] [place] [address]- 7289 19 Nov, 2012 [facility] [address] [id number] [place] [address]- 6792 Nov, [facility] [place] [facility] [address] [id number] [place] [address]- 4099 18 Nov, 2012 [facility] [address] [id number] [place] [address], [place] [address]- 6991 18 Nov, 2012 [facility] [address] [facility] [id number] [place] [address]- 0534 Nov, [facility] [address] [facility] [id number] [place] [address]- 5518 Nov, [facility] [address] [id number] [place] [address]- 5471 Oct, [facility] [place] [facility] [address] [facility] [id number] [place] [address]- 4757 Oct, [facility] [address] [facility] [id number] [place] [address]- 7495 Oct, [facility] [place] [facility] [address] [facility] [id number] [place] [address]- 3161 Sep, [facility] [place] [facility] [address] [id number] [place] [address]- 4054 Sep, [facility] [place] [facility] [address] [facility] [id number] [place] [address]- 6326 10 Sep, 2012 [facility] [place] [facility] [address] [facility] [id number] [place] [address]- 9040 10 Sep, 2012 [facility] [place] [facility] [address] [facility] [id number] [place] [address]- 1051 Aug, [facility] [place] [facility] [address] [id number] [place] [address]- 8411 Aug, [facility] [place] [facility] [address] [id number] [place] [address]- 9523 Jul, [facility] [place] [facility] [address] [id number] [place] [address]- 3286 May, [facility] [place] [facility] [address] [id number] [place] [address]- 8866 May, [facility] [place] [facility] [address] [id number] [place] [address]- 5040 May, [facility] [place] [facility] [address] [id number] [place] [address]- 8876 April, [facility] [place] [facility] [address] [id number] [place] [address]- 1501 Mar, [facility] [place] [facility] [address] [id number] [place] [address]- 7822 Mar, [facility] [place] [facility] [address] [id number] [place] [address]- 5618 Mar, [facility] [place] [facility] [address] [id number] [place] [address]- 8452 Jan, [facility] [place] [facility] [address] [id number] [place] [address]- 0785 Jan, [facility] [place] [facility] [address] [id number], [place] [address]- 8327 Jan, [facility] [place] [facility] [address] [id number] [place] [address]- 3079 Dec, [facility] [place] [facility] [address] [id number] [place] [address]- 9526 Dec, [facility] [place] [facility] [address] [id number], [place] [address]- 7045 Dec, [facility] [place] [facility] [address] [id number], [place] [address]- 9246 03 Dec, 2011 [facility] [place] [facility] [address] [id number] [place] [address]- 9838 28 Nov, 2011 [facility] [place] [facility] [address] [id number] [place] [address] 15 Nov, 2011 [facility] [place] [facility] [address] [facility] [id number] [place] [address]- 8216 03 Nov, 2011 [facility] [place] [facility] [address] [id number] [place] [address]- 4226 03 Oct, 2011 [facility] [place] [facility] [address] [id number] [place] [address]- 8895 31 Sep, 2011 [facility] [place] [facility] [address] [id number] [place] [address]- 1809 26 Sep, 2011 [facility] [place] [facility] [address] [facility] [id number] [place] [address]- 0685 13 Sep, 2011 [facility] [place] [facility] [address] [id number] [place] [address]- 2417 15 Nov, 2010 [facility] [place] [facility] [address] [facility] [id number] [place] [address]- 4397 23 Oct, 2010 [facility] [place] [facility] [address] [facility] [id number] [place] [address]- 6393 Oct, [facility] [place] [facility] [address] [id number], [place] [address]- 2146 18 Oct, 2010 [facility] [place] [facility] [address] [id number], [place] [address]- 8218 16 Oct, 2010 [facility] [place] [facility] [address] [id number] [place] [address]- 2902 11 Sep, 2010 [facility] [place] [facility] [address] [facility] [id number] [place] [address]- 0090 April, [facility] [place] [facility] [address] [facility] [id number] [place] [address]- 3794 29 Nov, 2009 [facility] [place] [facility] [address] [id number] [address] Nov, [facility] [address] [id number] [address]997 Nov, [facility] [id number] 4952 Nov, [facility] [id number], [place] [address]- 3212 Nov, [facility] [id number] 7635 Oct, [facility] [id number] 4347 Oct, [facility] [id number], [place] [address]- 9300 Sep, [facility] [address] [address]79 Jan, IMMUNIZATIONS No Known Immunizations SOCIAL HISTORY Never Assessed REASON FOR VISIT Test results PLAN OF CARE VITAL SIGNS MEDICATIONS Unknown Medications RESULTS No Results PROCEDURES No Known procedures INSTRUCTIONS MEDICATIONS ADMINISTERED No Known Medications MEDICAL (GENERAL) HISTORY Type Description Date Medical History Hypertension Medical History Heart disease CABG X3 Stress test 07/2015 Medical History Gastric ulcer Medical History Hyperlipidemia Medical History Headache syndrome Medical History Psychiatric disorders-depression/racing thoughts Medical History Depression [facility]2016 Started on Eliquis Medical History Anemia 04/2016 postsurgical hip fx Surgical History right hip replacement w/ Dr. Bruce 2011 Surgical History triple bypass surgery 2003 Surgical History S/P left hip IM Nail (Intertrechanteric hip fx) 04/28/16 Hospitalization History surgeries Hospitalization History Hypertension Hospitalization History ER for a concussion 11/24/15 Hospitalization History Intertrechanteric hip fx 04/27/16 Hospitalization History [facility] (inpatient [facility] 2 times) Hx of 3 inpatient psych treatments in past in [place] oct 2016 [facility]
--- OUTSIDE RECORDS SUMMARY | 2019-02-11 14:32 | XMS REPORT ---
Author Author WOLF AGUIRRE [facility] Address [address] [place] [address] Care Team Providers Care Corporate Development Analyst Name Role Phone WOLF AGUIRRE Unavailable PROBLEMS ALLERGIES No Information ENCOUNTERS IMMUNIZATIONS No Known Immunizations SOCIAL HISTORY No smoking Hx information available REASON FOR VISIT PLAN OF CARE VITAL SIGNS MEDICATIONS Unknown Medications RESULTS No Results PROCEDURES INSTRUCTIONS MEDICATIONS ADMINISTERED No Known Medications MEDICAL (GENERAL) HISTORY
--- OUTSIDE RECORDS SUMMARY | 2019-02-11 14:33 | XMS REPORT ---
Author Author WOLF AGUIRRE [facility] Address [address] [place] [address] Care Team Providers Care Gantry Rigger Name Role Phone WOLF AGUIRRE Unavailable PROBLEMS ALLERGIES No Information ENCOUNTERS IMMUNIZATIONS No Known Immunizations SOCIAL HISTORY No smoking Hx information available REASON FOR VISIT PLAN OF CARE VITAL SIGNS MEDICATIONS Unknown Medications RESULTS No Results PROCEDURES No Known procedures INSTRUCTIONS MEDICATIONS ADMINISTERED No Known Medications MEDICAL (GENERAL) HISTORY
[2019-02-11 14:34] LABS: ALANINE AMINOTRANSFERASE 10 U/L (0-55); ALBUMIN 3.6 GM/DL (3.2-4.5); ALKALINE PHOSPHATASE 93 U/L (40-136); BILIRUBIN,TOTAL 0.7 MG/DL (0.1-1.0); BUN/CREATININE RATIO 16; CALCIUM 8.4 MG/DL (8.5-10.1); CARBON DIOXIDE 24 MMOL/L (21-32); CHLORIDE 82 MMOL/L (98-107); CREATININE SERUM 0.62 MG/DL (0.60-1.30); GFR ESTIMATED > 60; GLUCOSE 120 MG/DL (70-105); POTASSIUM 4.2 MMOL/L (3.6-5.0); TOTAL PROTEIN 6.4 GM/DL (6.4-8.2)
--- OUTSIDE RECORDS SUMMARY | 2019-02-11 14:34 | XMS REPORT ---
Author Author WOLF AGUIRRE [facility] Address [address] [place] [address] Care Team Providers Care Trimmer Machine Name Role Phone WOLF AGUIRRE Unavailable PROBLEMS Type Condition ICD9-CM Code [id number] Code Onset Dates Condition Status SNOMED Code Problem Sundowning F05 Active 387356356 Problem Constipation, unspecified constipation type K59.00 Active 12989430 Problem Reactive depression F32.9 Active 82231964 Problem Vascular dementia with behavior disturbance F01.51 Active 618034923001842 Problem Insomnia, unspecified type G47.00 Active 189897014 Problem Generalized anxiety disorder F41.1 Active 56512505 Problem Other chronic pain G89.29 Active 36980628 Problem Severe episode of recurrent major depressive disorder, without psychotic features F33.2 Active 72148417 Problem Slow transit constipation K59.01 Active 11777170 Problem 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 Active 996830560 Problem Obsessive thinking F42.8 Active 14786218 Problem Failure to thrive in adult R62.7 Active 742420155 Problem Dysthymic disorder F34.1 Active 79511444 Problem Hypertension I10 Active 82478741 Problem Mood disorder F39 Active 30393596 Problem Irritable bowel syndrome with diarrhea K58.0 Active 351853760 Problem Oropharyngeal dysphagia R13.12 Active 80529740 Problem 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 Active 19069032 Problem Other chronic pain G89.29 Active 91736128 Problem Primary insomnia F51.01 Active 8607926 Problem Poor appetite R63.0 Active 70542784 Problem Atherosclerotic heart disease of [place] 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 Active 253924709835003 Problem Iron deficiency anemia secondary to inadequate dietary iron intake D50.8 Active 988557049 Problem Coarse tremors G25.2 Active 01766412 Problem Gastroesophageal reflux disease without esophagitis K21.9 Active 883557381 Problem Essential hypertension I10 Active 74161641 ALLERGIES No Information ENCOUNTERS Encounter Location Date Diagnosis [facility] [id number] [address] Sep, [facility] [id number] Sep, Obsessive thinking F42.8 [facility] [id number] [address] Sep, [facility] [id number] [place] [address] 69950- 3308 Sep, [facility] [id number] [place] [address] 24004- 0649 Aug, [facility] [id number] [place] [address] 47417- 2349 Aug, [facility] [id number] [place] [address] 22108- 1653 Aug, Positive urine drug screen R82.[address] [id number] Aug, [facility] [id number] [place] [address] 50356- 7889 Aug, [facility] [id number] [place] [address] 14739- 6713 Aug, [facility] [id number] [address] Aug, Irritable bowel syndrome with diarrhea K58.0 [facility] [id number] [address] 269[address] Aug, [facility] [id number] [place] [address] 04646- 4569 Aug, Obsessive thinking F42.8 ; Insomnia, unspecified type G47.00 and Other chronic pain G89.29 [facility] [address] [place] [id number] Aug, Obsessive thinking F42.8 ; Irritable bowel syndrome with diarrhea K58.0 ; Pain in right foot M79.671 ; Pain of left foot M79.672 and Gastroesophageal reflux disease without esophagitis K21.9 [facility] [id number] [address] Aug, [facility] [id number] [address] Jul, [facility] [id number] [place] [address] 55475- 4159 Jun, [facility] [id number] [place] [address] 15405- 1646 Jun, [facility] [address] [id number] Jun, Left lower quadrant pain R10.32 and Left leg pain M79.605 [facility] [id number] [place] [address] 26591- 2428 Jun, [facility] [address] [id number] Jun, Pain in left hip M25.552 ; Pain in right hip M25.551 and Primary insomnia F51.01 [facility] [id number] [place] [address] 20697- 8830 Jun, [facility] [address] [id number] May, [facility] [id number] [address] 1329 May, [facility] [id number] [place] [address] 41870- 3102 May, [facility] [address] [id number] May, Mood disorder F39 [facility] [id number] [address] 3[address] May, [facility] [id number] [place] [address] 91994- 1159 April, [facility] [address] [place] [id number] April, Generalized anxiety disorder F41.1 ; Obsessive thinking F42.8 and Insomnia , unspecified type G47.00 [facility] [id number] [address] April, [facility] [id number] [place] [address] 563931- 6724 April, Rash of face R21 [facility] [id number] [place] [address] 43160- 0532 Mar, [facility] [id number] [place] [address] 65032- 8925 Mar, [facility] [id number] [place] [address] 292305- 9038 Mar, [facility] [id number] [place] [address] 67441- 0294 Jan, [facility] [id number] [place] [address] 34594- 8385 Jan, [facility] [address] [place] [id number] Jan, Constipation, unspecified constipation type K59.00 and Other chronic pain G89.29 [facility] [address] [address] Jan, [facility] [address] [place] [id number] Jan, Obsessive thinking F42.8 and Coarse tremors G25.2 [facility] [id number] [place] [address] [id number] Jan, [facility] [id number] [place] [address] [id number] Jan, [facility] [address] [place] [id number] Jan, Generalized anxiety disorder F41.1 ; Obsessive thinking F42.8 ; Callus of foot L84 and 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 [facility] [id number] [place] [address] 99712- 3065 Dec, Generalized anxiety disorder F41.1 and Severe episode of recurrent major depressive disorder, without psychotic features F33.2 [facility] [id number] [place] [address] 50035- 9335 Nov, [facility] [id number] [place] [address] 59575- 2154 Nov, [facility] [address] [place] [id number] Nov, Oropharyngeal dysphagia R13.12 ; Generalized anxiety disorder F41.1 and 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 [facility] [id number] [place] [address] 50819- 6206 Nov, [facility] [address] [id number] Nov, [facility] [id number] [place] [address] 10027- 7757 Nov, [facility] [id number] [place] [address] 41637- 1057 Nov, [facility] [id number] [place] [address] 88390- 5397 Oct, Constipation, unspecified constipation type K59.00 and Mood disorder F39 [facility] [id number] [place] [address] 45957- 0743 Oct, [facility] [id number] [place] [address] [id number] Sep, [facility] [id number] [place] [address] [id number] Sep, [facility] [id number] [place] [address] [id number] Sep, [facility] [address] [place] [id number] Sep, [facility] [address] [place] [id number] Sep, Generalized abdominal pain R10.84 [facility] [address] [address] 94[address] Sep, [facility] [id number] [id number] Sep, Generalized anxiety disorder F41.1 and Primary insomnia F51.01 [facility] [id number] [id number] Aug, [facility] [id number] [place] [address] [id number] Aug, Generalized anxiety disorder F41.1 [facility] [id number] [address] 6[address] Jul, [facility] [address] [place] [id number] Jul, Obsessive thinking F42.8 [facility] [address] [address] 9[address] Jul, Generalized anxiety disorder F41.1 and Irritable bowel syndrome with diarrhea K58.0 [facility] [id number] [id number] Jul, Generalized anxiety disorder F41.1 [facility] [id number] [id number] Jun, Generalized anxiety disorder F41.1 [facility] [id number] [address] May, [facility] [address] [id number] May, Generalized anxiety disorder F41.1 ; Irritable bowel syndrome with diarrhea K58.0 and Coarse tremors G25.2 [facility] [id number] [address] 7927 April, [facility] [address] [address]- 2349 April, [facility] [id number] [address]- 3472 April, [facility] [address] [address] 0459 Mar, [facility] [address] [place] [id number] Mar, Severe episode of recurrent major depressive disorder, without psychotic features F33.2 and Pain in left hip M25.552 [facility] [id number] [place] [address] 38288- 9399 Mar, [facility] [id number] [place] [address] 57374- 3633 Mar, [facility] [id number] [place] [address] 33369- 4176 Mar, [facility] [id number] [place] [address] 83259- 1275 Mar, Pain in right hip M25.551 and Self-care deficit in patient living alone R46.89 [facility] [address] [address] Jan, Other chronic pain G89.29 ; Pain in left hip M25.552 and Slow transit constipation K59.01 [facility] [id number] [place] [address] 20844- 7915 Jan, [facility] [address] [address]- 8959 Dec, Other depression F32.89 ; Constipation, unspecified constipation type K59.00 and Insomnia, unspecified type G47.00 [facility] [address] [address] Nov, Reactive depression F32.9 ; Chronic idiopathic constipation K59.04 ; Generalized anxiety disorder F41.1 ; Coarse tremors G25.2 ; Gastroesophageal reflux disease without esophagitis K21.9 ; Dysthymic disorder F34.1 ; Vitamin deficiency, unspecified E56.9 and Primary insomnia F51.01 [facility] [id number] [place] [address] 94405- 9685 Nov, [facility] [address] 31701- 4796 Nov, [facility] [address] 83087- 2669 Nov, [facility] [address] 38920- 1394 Nov, Reactive depression F32.9 ; Essential hypertension I10 ; Generalized anxiety disorder F41.1 ; Atherosclerotic heart disease of [place] 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 ; Pain in right hip M25.551 ; Other chronic pain G89.29 ; Chronic idiopathic constipation K59.04 ; Primary insomnia F51.01 ; Coarse tremors G25.2 ; Gastroesophageal reflux disease without esophagitis K21.9 ; Iron deficiency anemia secondary to inadequate dietary iron intake D50.8 and Vitamin deficiency, unspecified E56.9 [facility] [address] 90857- 8505 Oct, [facility] [id number] [place] [address] 69291- 0644 Oct, [facility] [id number] [place] [address] 28106- 1198 18 Oct, 2016 [facility] [id number] [place] [address] 78278- 8916 16 Oct, 2016 Generalized anxiety disorder F41.1 ; Poor appetite R63.0 ; Dehydration E86.0 and Failure to thrive in adult R62.7 [facility] [id number] [place] [address] 34488- 0010 07 Oct, 2016 Generalized anxiety disorder F41.1 and Failure to thrive in adult R62.7 [facility] [address] [place] [address]- 4921 Oct, [facility] [id number] [place] [address] 45872- 8873 Oct, [facility] [id number] [place] [address] 04958 -4261 Sep, Vaginal discharge N89.8 and Acute cystitis with hematuria N30.01 [facility] [id number] [place] [address] 93147- 9893 Sep, [facility] [id number] [place] [address] 96017- 1541 Sep, [facility] [id number] [place] [address] 97659- 4614 Sep, Dysthymic disorder F34.1 ; Acute vaginitis N76.0 ; Dysuria R30.0 and Vaginal yeast infection B37.3 [facility] [id number] [place] [address] 34602- 1336 Aug, [facility] [facility] [id number] [place] [address] 94493- 4803 Aug, [facility] [id number] [place] [address] 94904 -5203 Aug, Foul smelling urine R82.90 ; Rapid heart rate R00.0 and Flatulence R14.3 [place] [facility] [id number] [place] [address] 58387- 7022 Aug, [facility] [id number] [place] [address] 84558- 6769 Jul, Constipation, unspecified constipation type K59.00 ; Weak R53.1 ; Poor appetite R63.0 ; Coronary artery disease involving [place] heart without angina pectoris, unspecified vessel or lesion type I25.10 ; Fatigue, unspecified type R53.83 ; Urinary incontinence, unspecified type R32 and Insomnia, unspecified type G47.00 [facility] [id number] [place] [address] 42730- 1863 Jul, [facility] [id number] [place] [address] 24614- 3017 Jun, Dysuria R30.0 [facility] [id number] [place] [address] 98377- 2318 Jun, [facility] [id number] [place] [address] 80244- 6677 Jun, Urinary tract infection, site not specified N39.0 ; Acute vaginitis N76.0 and Diarrhea, unspecified type R19.7 [facility] [id number] [place] [address] 84338- 5190 May, [facility] [id number] [place] [address] 35900- 1775 April, [facility] [address] [id number] April, Encounter for dental examination Z01.20 [facility] [id number] [place] [address] 95959- 5573 April, [facility] [id number] [place] [address] 84418- 9989 April, Tremor R25.1 and Episodic tension-type headache, not intractable G44.219 [facility] [id number] [place] [address] 52255- 4826 Mar, [facility] [id number] [place] [address] 51005- 9458 Jan, Mood disorder F39 [facility] [id number] [place] [address] 51042 -8908 Jan, [facility] [id number] [place] [address] 29932- 1769 Jan, [facility] [id number] [place] [address] 13798- 8112 Jan, [facility] [address] [address]- 6356 Jan, [facility] [id number] [place] [address] 27474- 1776 Jan, [facility] [id number] [place] [address] 62290- 8798 Jan, [facility] [id number] [place] [address] 62482 -7403 Dec, Acute diarrhea R19.7 [facility] [id number] [place] [address] 90924- 6582 Dec, [facility] [id number] [place] [address] 03251- 9865 Dec, [facility] [id number] [place] [address] 30986- 3816 Dec, [facility] [id number] [place] [address] 45864 -9789 Dec, N&V (nausea and vomiting) R11.2 [facility] [id number] [place] [address] 09972- 6525 Dec, Generalized anxiety disorder F41.1 [facility] [id number] [place] [address] 16526- 1427 Dec, Generalized anxiety disorder F41.1 [facility] [id number] [place] [address] 82978- 4990 Nov, Post concussion syndrome F07.81 [facility] [id number] [place] [address] 14444- 8510 Nov, Generalized anxiety disorder F41.1 [facility] [id number] [place] [address] 82570- 1602 Nov, [facility] [id number] [place] [address] 58352- 4476 Nov, Generalized anxiety disorder F41.1 [facility] [id number] [place] [address] [id number] Oct, Dental caries K02.9 [facility] [id number] [place] [address] 70831- 5806 Oct, [facility] [id number] [place] [address] [id number] Oct, Dental examination Z01.20 [facility] [address] [id number] Oct, Encounter for dental examination Z01.20 [facility] [address] 36880- 4729 Oct, CAD (coronary artery disease) I25.10 [facility] [id number] [place] [address] 37695- 9094 Sep, Generalized anxiety disorder F41.1 [facility] [id number] [place] [address] 89981- 9227 Sep, [facility] [id number] [place] [address] 13221- 6626 Sep, Rash and other nonspecific skin eruption R21 and Yeast vaginitis B37.3 [facility] [id number] [place] [address] 59263- 8439 Sep, Generalized anxiety disorder F41.1 [facility] [id number] [place] [address] 83240- 7886 Aug, Insect bites 919.4 and Hemorrhoids 455.6 [facility] [id number] [place] [address] 65466- 2302 Aug, Generalized anxiety disorder 300.02 [facility] [address] 05208- 6446 08 Aug, 2015 [facility] [id number] [place] [address] 97019- 2620 Aug, [facility] [id number] [address]- 7971 Aug, Generalized anxiety disorder 300.02 ; No condition on [place] II V71.09 ; Heart problem 429.9 and Hypertension 401.9 [facility] [id number] [place] [address] 86896- 0357 Aug, [facility] [id number] [place] [address] 38253- 4438 Jul, [facility] [id number] [place] [address] 28518- 5381 Jul, [facility] [id number] [place] [address] 22919- 1351 Jul, [facility] [id number] [place] [address] 63721- 1730 Jul, [facility] [id number] [place] [address] 39375- 7219 Jul, Rash 782.1 [facility] [id number] [place] [address] 70081- 1442 Jul, UTI (urinary tract infection) 599.0 [facility] [id number] [place] [address] 08332- 1878 Jul, [facility] [id number] [place] [address] 24685- 6041 Jun, Dysthymia 300.4 and Anxiety 300.00 [facility] [id number] [place] [address] 60798- 5825 Jun, 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 [facility] [id number] [place] [address] 24723- 9861 May, [facility] [id number] [place] [address] 66934- 1345 May, [facility] [id number] [place] [address] 68206- 3030 May, Unspecified breast screening V76.10 [facility] [address] [id number] [place] [id number] May, Dental examination V72.2 [facility] [address] [id number] [place] [address] April, [facility] [address] [id number] [place] [address] April, [facility] [address] [id number] [place] [id number] April, Dental examination V72.2 [facility] [address] [id number] [place] [id number] April, Dental examination V72.2 [facility] [address] [id number] [place] [address] Mar, [facility] [address] [id number] [place] [address] Mar, [facility] [address] [id number] [place] [address] Jan, [facility] [address] [id number] [place] [address] 25 Jan, 2015 [facility] [address] [facility] [id number] [place] [address] 18 Jan, 2015 [facility] [address] [id number] [place] [address] 18 Jan, 2015 [facility] [address] [id number] [place] [address] 16 Jan, 2015 [facility] [address] [id number] [place] [address] 16 Jan, 2015 [facility] [facility] [address] [id number] [address] 13 Jan, 2015 [facility] [address] [id number] [place] [address] 13 Jan, 2015 [facility] [place] [facility] [address] [id number] [place] [address] 1669 Jan, [facility] [place] [facility] [address] [id number] [place] [address] 4840 Jan, [facility] [place] [facility] [address] [id number] [place] [address] 7358 Jan, [facility] [place] [facility] [address] [id number] [place] [address] 1233 Jan, [facility] [place] [facility] [address] [id number] [place] [address]- 1265 Jan, [facility] [place] [facility] [address] [id number] [place] [address] 9755 Jan, [facility] [place] [facility] [address] [id number] [place] [address]- 7091 Jan, [facility] [place] [facility] [address] [id number] [place] [address]- 5349 Jan, 2014 [facility] [place] [facility] [address] [id number] [place] [address]- 8364 Jan, [facility] [place] [facility] [address] [facility] [id number] [place] [address]- 5744 Jan, [facility] [place] [facility] [address] [id number] [place] [address]- 6070 Jan, 2014 [facility] [place] [facility] [address] [id number] [place] [address]- 6243 Jan, 2014 [facility] [place] [facility] [address] [id number] [place] [address]- 3494 Jan, [facility] [place] [facility] [address] [id number] [place] [address] Jan, [facility] [place] [facility] [address] [id number] [place] [address]- 7483 Dec, [facility] [place] [facility] [address] [id number] [place] [address]- 4617 Dec, [facility] [address] [id number] [place] [address]- 6280 Dec, [facility] [place] [facility] [address] [id number] [place] [address]- 1685 Dec, [facility] [address] [id number] [place] [address]- 8853 Nov, [facility] [place] [facility] [address] [id number] [place] [address]- 3683 Nov, [facility] [address] [id number] [place] [address]- 1327 Nov, [facility] [place] [facility] [address] [id number] [place] [address]- 5516 Nov, [facility] [place] [facility] [address] [id number] [place] [address]- 2067 Nov, [facility] [address] [id number] [place] [address]- 0198 Nov, [facility] [place] [facility] [address] [id number] [place] [address]- 9198 Nov, [facility] [address] [id number] [place] [address]- 7565 Oct, [facility] [place] [facility] [address] [id number] [place] [address]- 4837 Oct, [facility] [place] [facility] [address] [id number] [place] [address]- 3982 Oct, [facility] [place] [facility] [address] [id number] [place] [address]- 9108 Oct, [facility] [place] [facility] [address] [id number] [place] [address]- 6889 Oct, [facility] [place] [facility] [address] [id number] [place] [address] Oct, [facility] [place] [facility] [address] [id number] [place] [address]- 2635 Oct, [facility] [place] [facility] [address] [id number] [place] [address]- 7130 Oct, [facility] [place] [facility] [address] [id number] [place] [address]- 0302 Oct, [facility] [place] [facility] [address] [id number] [place] [address]- 8959 Oct, [facility] [place] [facility] [address] [id number] [place] [address]- 5310 Oct, [facility] [place] [facility] [address] [id number] [place] [address]- 1510 Oct, [facility] [place] [facility] [address] [id number] [place] [address]- 2286 Sep, [facility] [place] [facility] [address] [id number] [place] [address]- 7571 Sep, [facility] [place] [facility] [address] [id number] [place] [address]- 0829 Sep, [facility] [place] [facility] [address] [id number] [place] [address]- 1674 Sep, [facility] [place] [facility] [address] [id number] [place] [address] 8749 Jul, [facility] [place] [facility] [address] [id number] [place] [address]- 7547 Jul, [facility] [place] [facility] [address] [id number] [place] [address]- 0664 Jul, [facility] [place] [facility] [address] [id number] [place] [address]- 3004 Jul, [facility] [place] [facility] [address] [id number] [place] [address]- 5652 Jun, [facility] [place] [facility] [address] [id number] [place] [address]- 0798 Jun, [facility] [address] [id number] [place] [address]- 4244 Jun, [facility] [place] [facility] [address] [id number] [place] [address]- 6333 Jun, [facility] [place] [facility] [address] [id number] [place] [address]- 4016 May, [facility] [place] [facility] [address] [id number] [place] [address]- 6521 May, [facility] [place] [facility] [address] [id number] [place] [address]- 8618 April, [facility] [place] [facility] [address] [id number] [place] [address]- 3443 April, [facility] [address] [id number] [place] [address]- 6514 April, [facility] [place] [facility] [address] [id number] [place] [address]- 1508 April, [facility] [place] [facility] [address] [id number] [place] [address]- 4680 April, [facility] [place] [facility] [address] [id number] [place] [address]- 8117 April, [facility] [place] [facility] [address] [id number] [place] [address]- 6209 April, [facility] [place] [facility] [address] [id number] [place] [address]- 4363 April, [facility] [place] [facility] [address] [id number] [place] [address]- 9582 April, [facility] [place] [facility] [address] [id number] [place] [address]- 7820 Mar, [facility] [place] [facility] [address] [id number] [place] [address]- 3594 Mar, [facility] [place] [facility] [address] [id number] [place] [address]- 8249 Mar, [facility] [place] [facility] [address] [id number] [place] [address]- 5887 Mar, [facility] [place] [facility] [address] [id number] [place] [address]- 4626 Jan, [facility] [place] [facility] [address] [id number] [place] [address]- 1815 Jan, [facility] [place] [facility] [address] [id number] [place] [address]- 5511 Jan, [facility] [place] [facility] [address] [id number] [place] [address]- 3098 Jan, [facility] [place] [facility] [address] [id number] [place] [address]- 8573 Jan, [facility] [place] [facility] [address] [id number] [place] [address]- 4353 Jan, [facility] [place] [facility] [address] [id number] [place] [address]- 6394 Jan, [facility] [place] [facility] [address] [id number] [place] [address]- 3154 Jan, [facility] [place] [facility] [address] [id number] [place] [address]- 9790 Jan, [facility] [place] [facility] [address] [id number] [place] [address]- 9160 Jan, [facility] [place] [facility] [address] [id number] [place] [address]- 9432 Jan, [facility] [place] [facility] [address] [id number] [place] [address]- 1898 Jan, [facility] [place] [facility] [address] [id number] [place] [address]- 5337 Dec, [facility] [place] [facility] [address] [id number] [place] [address]- 2546 Dec, [facility] [place] [facility] [address] [id number] [place] [address]- 6804 Dec, [facility] [place] [facility] [address] [id number] [place] [address]- 0427 Dec, [facility] [place] [facility] [address] [id number] [place] [address]- 9289 Nov, [facility] [place] [facility] [address] [id number] [place] Nov, [facility] [place] [facility] [address] [id number] [place] [address]- 9179 Nov, [facility] [place] [facility] [address] [id number] [place] [address]- 0480 Nov, [facility] [place] [facility] [address] [id number] [place] [address]359 Oct, [facility] [place] [facility] [address] [id number] [place] [address]- 5701 Oct, [facility] [place] [facility] [address] [id number] [place] [address]- 2760 Sep, [facility] [place] [facility] [address] [id number] [place] [address]- 6810 Sep, [facility] [place] [facility] [address] [id number] [place] [address]- 5153 Jul, [facility] [place] [facility] [address] [id number] [place] [address]- 4259 Jul, [facility] [place] [facility] [address] [id number] [place] [address]- 2466 Jun, [facility] [place] [facility] [address] [id number] [place] [address]- 9104 Jun, [facility] [place] [facility] [address] [id number] [place] [address]- 7702 Jun, [facility] [place] [facility] [address] [id number] [place] [address]- 5764 26 May, 2013 [facility] [address] [id number] [place] [address]- 6327 May, [facility] [address] [id number] [place] [address]- 4476 17 May, 2013 [facility] [address] [id number] [place] [address]- 7824 May, [facility] [address] [id number] [place] [address]- 8303 May, [facility] [address] [id number] [place] [address]- 4797 April, [facility] [address] [id number] [place] [address]- 2127 April, [facility] [address] [id number] [place] [address]- 5195 April, [facility] [address] [id number] [place] [address]- 2946 April, [facility] [address] [id number] [place] [address]- 1387 April, [facility] [address] [id number] [place] [address]- 6990 April, [facility] [address] [id number] [place] [address]- 4666 Mar, [facility] [address] [id number] [place] [address]- 7514 15 Mar, 2013 [facility] [address] [id number] [place] [address]- 9108 28 Jan, 2013 [facility] [address] [id number] [place] [address]- 2546 Jan, [facility] [address] [id number] [place] [address]- 0799 Jan, [facility] [address] [id number] [place] [address]- 0490 Jan, [facility] [place] [facility] [address] [id number] [place] [address]- 3546 Jan, [facility] [place] [facility] [address] [id number] [place] [address]- 2536 Jan, [facility] [place] [facility] [address] [id number] [place] [address]- 1268 Jan, [facility] [place] [facility] [address] [id number] [place] [address]- 8336 Jan, [facility] [place] [facility] [address] [id number] [place] [address]- 0120 Jan, [facility] [address] [id number] [place] [address]- 2231 Jan, [facility] [place] [facility] [address] [id number] [place] [address]- 7695 Jan, [facility] [address] [id number] [place] [address]- 5942 Dec, [facility] [place] [facility] [address] [id number] [place] [address]- 1042 Nov, [facility] [place] [facility] [address] [id number] [place] [address]- 0000 Nov, [facility] [place] [facility] [address] [id number] [place] [address]- 5526 Nov, [facility] [place] [facility] [address] [id number] [place] [address]- 9843 Nov, [facility] [place] [facility] [address] [facility] [id number] [place] [address]- 2787 Nov, [facility] [place] [facility] [address] [facility] [id number] [place] [address]- 2078 Nov, [facility] [place] [facility] [address] [id number] [place] [address]- 1653 20 Nov, 2012 [facility] [address] [id number] [place] [address]- 2504 Nov, [facility] [place] [facility] [address] [id number] [place] [address]- 8826 Nov, [facility] [address] [id number] [place] [address]- 7498 18 Nov, 2012 [facility] [place] [facility] [address] [id number] [place] [address]- 9809 18 Nov, 2012 [facility] [address] [facility] [id number] [place] [address], [place] [address]- 4184 Nov, [facility] [address] [facility] [id number] [place] [address]- 3943 Nov, [facility] [address] [facility] [id number] [place] [address]- 5292 Oct, [facility] [address] [id number] [place] [address]- 2611 Oct, [facility] [place] [facility] [address] [facility] [id number] [place] [address]- 8433 Oct, [facility] [address] [facility] [id number] [place] [address]- 3495 Sep, [facility] [place] [facility] [address] [facility] [id number] [place] [address]- 1952 Sep, [facility] [place] [facility] [address] [facility] [id number] [place] [address]- 4381 Sep, [facility] [place] [facility] [address] [facility] [id number] [place] 9513 10 Sep, 2012 [facility] [place] [facility] [address] [facility] [id number] [place] [address]- 5267 27 Aug, 2012 [facility] [place] [facility] [address] [facility] [id number] [place] [address]- 6367 Aug, [facility] [address] [id number] [place] [address]- 4713 Jul, [facility] [place] [facility] [address] [id number] [place] [address]- 9272 May, [facility] [place] [facility] [address] [id number] [place] [address]- 7382 May, [facility] [place] [facility] [address] [id number] [place] [address]- 3691 May, [facility] [place] [facility] [address] [id number] [place] [address]- 5903 April, [facility] [place] [facility] [address] [id number] [place] [address]- 2796 Mar, [facility] [place] [facility] [address] [id number] [place] [address]- 0311 Mar, [facility] [place] [facility] [address] [id number] [place] [address]- 9561 Mar, [facility] [place] [facility] [address] [id number] [place] [address]- 0399 Jan, [facility] [place] [facility] [address] [id number] [place] [address]- 3099 Jan, [facility] [place] [facility] [address] [id number] [place] [address]- 7713 Jan, [facility] [place] [facility] [address] [id number] [place] [address]- 4171 Dec, [facility] [place] [facility] [address] [id number] [place] [address]- 1551 Dec, [facility] [place] [facility] [address] [id number] [place] [address]- 4526 Dec, [facility] [place] [facility] [address] [id number] [place] [address]- 8746 Dec, [facility] [place] [facility] [address] [id number] [place] [address]- 5382 28 Nov, 2011 [facility] [place] [facility] [address] [id number] [place] [address]- 0961 15 Nov, 2011 [facility] [place] [facility] [address] [id number] [place] [address]- 9836 03 Nov, 2011 [facility] [place] [facility] [address] [id number] [place] [address]- 7786 Oct, [facility] [place] [facility] [address] [id number] [place] [address]- 0818 31 Sep, 2011 [facility] [place] [facility] [address] [id number] [place] [address]- 2271 26 Sep, 2011 [facility] [place] [facility] [address] [id number] [place] [address]- 8323 13 Sep, 2011 [facility] [place] [facility] [address] [facility] [id number] [place] [address]- 0765 15 Nov, 2010 [facility] [place] [facility] [address] [id number] [place] [address]- 8823 23 Oct, 2010 [facility] [place] [facility] [address] [facility] [id number] [place] [address]- 8030 Oct, [facility] [place] [facility] [address] [facility] [id number] [place] [address]- 5182 18 Oct, 2010 [facility] [place] [facility] [address] [id number] [place] [address]- 8002 16 Oct, 2010 [facility] [place] [facility] [address] [id number] [place] [address]- 6277 11 Sep, 2010 [facility] [place] [facility] [address] [id number] [place] [address]- 9096 April, [facility] [place] [facility] [address] [id number] [place] [address]- 2094 29 Nov, 2009 [facility] [place] [facility] [address] [facility] [id number] [place] [address]- 2018 24 Nov, 2009 [facility] [place] [facility] [address] [facility] [id number] [place] [address]- 1497 Nov, [facility] [address] [id number] [place] [address]- 5250 Nov, [facility] [address] [facility] [id number] [place] [address]- 0894 Nov, [facility] [address] [id number] [place] [address]- 6998 Oct, [facility] [address] [id number] [place] [address]- 5700 Oct, [facility] [id number] [address] Sep, [facility] [address] [id number] [address] Jan, IMMUNIZATIONS No Known Immunizations SOCIAL HISTORY [...] History Intertrechanteric hip fx 04/27/16 Hospitalization History [facility] (inpatient [facility] 2 times) Hx of 3 inpatient psych treatments in past in [place] oct 2016 [facility]
--- OUTSIDE RECORDS SUMMARY | 2019-02-11 14:34 | XMS REPORT ---
Author Author WOLF AGUIRRE [facility] Address [address] [place] [address] Care Team Providers Care Spot Remover Name Role Phone WOLF AGUIRRE Unavailable PROBLEMS Type Condition ICD9-CM Code [id number] Code Onset Dates Condition Status SNOMED Code Problem Sundowning F05 Active 318111215 Problem Constipation, unspecified constipation type K59.00 Active 27987160 Problem Reactive depression F32.9 Active 30860325 Problem Vascular dementia with behavior disturbance F01.51 Active 547411532534127 Problem Insomnia, unspecified type G47.00 Active 863427042 Problem Generalized anxiety disorder F41.1 Active 17171791 Problem Other chronic pain G89.29 Active 07819812 Problem Severe episode of recurrent major depressive disorder, without psychotic features F33.2 Active 89637845 Problem Slow transit constipation K59.01 Active 48392086 Problem 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 Active 716613836 Problem Obsessive thinking F42.8 Active 21706063 Problem Failure to thrive in adult R62.7 Active 837124088 Problem Dysthymic disorder F34.1 Active 20623279 Problem Hypertension I10 Active 86427061 Problem Mood disorder F39 Active 61875085 Problem Irritable bowel syndrome with diarrhea K58.0 Active 911444552 Problem Oropharyngeal dysphagia R13.12 Active 16605977 Problem 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 Active 33907842 Problem Other chronic pain G89.29 Active 18547269 Problem Primary insomnia F51.01 Active 6858642 Problem Poor appetite R63.0 Active 15415225 Problem Atherosclerotic heart disease of [place] 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 Active 957424615033530 Problem Iron deficiency anemia secondary to inadequate dietary iron intake D50.8 Active 339417105 Problem Coarse tremors G25.2 Active 57141520 Problem Gastroesophageal reflux disease without esophagitis K21.9 Active 613505139 Problem Essential hypertension I10 Active 00965831 ALLERGIES No Information ENCOUNTERS Encounter Location Date Diagnosis [facility] [address], [place] [address] Sep, [facility] [id number] Sep, Obsessive thinking F42.8 [facility] [address], [place] [address] Sep, [facility] [id number] [place] [address] 22238- 2467 Sep, [facility] [address] [place] [address] 25060- 5157 Aug, [facility] [id number] [place] [address] 62404- 1648 Aug, [facility] [id number] [place] [address] 26679- 5623 Aug, Positive urine drug screen R82.[address] [id number] Aug, [facility] [address] [place] [address] 36900- 0749 Aug, [facility] [address] [place] [address] 58494- 3230 Aug, [facility] [address], [place] [address] 7163 Aug, Irritable bowel syndrome with diarrhea K58.0 [facility] [address], [place] [address] 6[address] Aug, [facility] [id number] [place] [address] 20423- 3689 Aug, Obsessive thinking F42.8 ; Insomnia, unspecified type G47.00 and Other chronic pain G89.29 [facility] [address] [place] [id number] Aug, Obsessive thinking F42.8 ; Irritable bowel syndrome with diarrhea K58.0 ; Pain in right foot M79.671 ; Pain of left foot M79.672 and Gastroesophageal reflux disease without esophagitis K21.9 [facility] [address], [place] [address] Aug, [facility] [address] [address] Jul, [facility] [id number] [place] [address] 30494- 6600 Jun, [facility] [address] [place] [address] 90617- 4961 Jun, [facility] [address] [id number] Jun, Left lower quadrant pain R10.32 and Left leg pain M79.605 [facility] [id number] [place] [address] 68488- 4663 Jun, [facility] [address] [id number] Jun, Pain in left hip M25.552 ; Pain in right hip M25.551 and Primary insomnia F51.01 [facility] [address] [place] [address] 88279- 5451 Jun, [facility] [address] [id number] May, [facility] [address], [place] [address] 9[address] May, [facility] [address] [place] [address] 01986- 0592 May, [facility] [address] [id number] May, Mood disorder F39 [facility] [address], [place] [address] May, [facility] [address] [place] [address] 98690- 2235 April, [facility] [address] [place] [id number] April, Generalized anxiety disorder F41.1 ; Obsessive thinking F42.8 and Insomnia , unspecified type G47.00 [facility] [address] [address] April, [facility] [id number] [place] [address] 471944- 4229 April, Rash of face R21 [facility] [id number] [place] [address] 71227- 7237 Mar, [facility] [id number] [place] [address] 79603- 3523 Mar, [facility] [id number] [place] [address] 416426- 1607 Mar, [facility] [id number] [place] [address] 93373- 6704 Jan, [facility] [address] [place] [address] 05019- 0002 Jan, [facility] [address] [place] [id number] Jan, Constipation, unspecified constipation type K59.00 and Other chronic pain G89.29 [facility] [address], [place] [address] 6[address] Jan, [facility] [address] [place] [id number] Jan, Obsessive thinking F42.8 and Coarse tremors G25.2 [facility] [facility] [id number] [place] [address] [id number] Jan, [facility] [id number] [place] [address] [id number] Jan, [facility] [address] [place] [id number] Jan, Generalized anxiety disorder F41.1 ; Obsessive thinking F42.8 ; Callus of foot L84 and 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 [facility] [id number] [place] [address] 59728- 4797 Dec, Generalized anxiety disorder F41.1 and Severe episode of recurrent major depressive disorder, without psychotic features F33.2 [facility] [id number] [place] [address] 50020- 7227 Nov, [facility] [id number] [place] [address] 80681- 0712 Nov, [facility] [address] [place] [id number] Nov, Oropharyngeal dysphagia R13.12 ; Generalized anxiety disorder F41.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 [facility] [id number] [place] [address] 54088- 4730 Nov, [facility] [address] [id number] Nov, [facility] [id number] [place] [address] 88857- 0330 Nov, [facility] [id number] [place] [address] 35201- 0405 Nov, [facility] [id number] [place] [address] 21108- 3510 Oct, Constipation, unspecified constipation type K59.[address] [facility] [id number] [place] [address] 51553- 5475 Oct, [facility] [id number] [place] [address] [id number] Sep, [facility] [id number] [place] [address] [id number] Sep, [facility] [id number] [place] [address] [id number] Sep, [facility] [address] [place] [id number] Sep, [facility] [address] [place] [id number] Sep, Generalized abdominal pain R10.84 [facility] [address], [place] [address] 24[address] Sep, [facility] [address] [address] Sep, Generalized anxiety disorder F41.1 and Primary insomnia F51.01 [facility] [address] [id number] Aug, [facility] [id number] [place] [address] [id number] Aug, Generalized anxiety disorder F41.1 [facility] [id number], [place] [address] 24[address] Jul, [facility] [address] [place] [id number] Jul, Obsessive thinking F42.8 [facility] [address], [place] [address] 8366 Jul, Generalized anxiety disorder F41.1 and Irritable bowel syndrome with diarrhea K58.0 [facility] [id number] [id number] Jul, Generalized anxiety disorder F41.1 [facility] [address] [id number] Jun, Generalized anxiety disorder F41.1 [facility] [id number] [address]657 May, [facility] [address] [id number] May, Generalized anxiety disorder F41.1 ; Irritable bowel syndrome with diarrhea K58.0 and Coarse tremors G25.2 [facility] [id number], [place] [address] 8099 April, [facility] [address] [address] April, [facility] [address] [address] April, [facility] [address], [place] [address]- 6443 Mar, [facility] [address] [place] [id number] Mar, Severe episode of recurrent major depressive disorder, without psychotic features F33.2 and Pain in left hip M25.552 [facility] [address] [place] [address] 29442- 5441 Mar, [facility] [id number] [place] [address] 51450- 9195 Mar, [facility] [id number] [place] [address] 83670- 6204 Mar, [facility] [id number] [place] [address] 06451- 8270 Mar, Pain in right hip M25.551 and Self-care deficit in patient living alone R46.89 [facility] [address], [place] [address] Jan, Other chronic pain G89.29 ; Pain in left hip M25.552 and Slow transit constipation K59.01 [facility] [address] [place] [address] 48578- 7128 Jan, [facility] [address], [place] [address]- 7089 Dec, Other depression F32.89 ; Constipation, unspecified constipation type K59.00 and Insomnia, unspecified type G47.00 [facility] [address], [place] [address]- 0301 Nov, Reactive depression F32.9 ; Chronic idiopathic constipation K59.04 ; Generalized anxiety disorder F41.1 ; Coarse tremors G25.2 ; Gastroesophageal reflux disease without esophagitis K21.9 ; Dysthymic disorder F34.1 ; Vitamin deficiency, unspecified E56.9 and Primary insomnia F51.01 [facility] [id number] [place] [address] 54872- 5926 Nov, [place] [facility] [address] 74483- 8504 Nov, [place] [facility] [address] 64532- 1960 Nov, [facility] [facility] [address] 71222- 6684 Nov, Reactive depression F32.9 ; Essential hypertension I10 ; Generalized anxiety disorder F41.1 ; Atherosclerotic heart disease of [place] 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 ; Pain in right hip M25.551 ; Other chronic pain G89.29 ; Chronic idiopathic constipation K59.04 ; Primary insomnia F51.01 ; Coarse tremors G25.2 ; Gastroesophageal reflux disease without esophagitis K21.9 ; Iron deficiency anemia secondary to inadequate dietary iron intake D50.8 and Vitamin deficiency, unspecified E56.9 [facility] [facility] [address] 48198- 0126 Oct, [facility] [id number] [place] [address] 37851- 9191 Oct, [facility] [id number] [place] [address] 24129- 9490 18 Oct, 2016 [facility] [id number] [place] [address] 32022- 0414 16 Oct, 2016 Generalized anxiety disorder F41.1 ; Poor appetite R63.0 ; Dehydration E86.0 and Failure to thrive in adult R62.7 [facility] [address] [place] [address] 76678- 3997 07 Oct, 2016 Generalized anxiety disorder F41.1 and Failure to thrive in adult R62.7 [facility] [address] [place] [address]- 0536 Oct, [facility] [id number] [place] [address] 45152- 7976 Oct, [facility] [id number] [place] [address] 59198 -9757 Sep, Vaginal discharge N89.8 and Acute cystitis with hematuria N30.01 [facility] [id number] [place] [address] 90087- 2669 Sep, [facility] [id number] [place] [address] 62852- 5208 Sep, [facility] [address] [place] [address] 19152- 0189 Sep, Dysthymic disorder F34.1 ; Acute vaginitis N76.0 ; Dysuria R30.0 and Vaginal yeast infection B37.3 [facility] [facility] [address] [place] [address] 36978- 6594 Aug, [place] [id number] [place] [address] 45159- 6671 Aug, [facility] [id number] [place] [address] 62686 -0718 Aug, Foul smelling urine R82.90 ; Rapid heart rate R00.0 and Flatulence R14.3 [place] [address] [place] [address] 81324- 2303 Aug, [place] [address] [place] [address] 37343- 7309 Jul, Constipation, unspecified constipation type K59.00 ; Weak R53.1 ; Poor appetite R63.0 ; Coronary artery disease involving cocopah heart without angina pectoris, unspecified vessel or lesion type I25.10 ; Fatigue, unspecified type R53.83 ; Urinary incontinence, unspecified type R32 and Insomnia, unspecified type G47.00 [facility] [id number] [place] [address] 90290- 4358 Jul, [facility] [address] [place] [address] 95691- 1246 Jun, Dysuria R30.0 [facility] [id number] [place] [address] 89659- 4237 Jun, [facility] [id number] [place] [address] 33462- 4827 Jun, Urinary tract infection, site not specified N39.0 ; Acute vaginitis N76.0 and Diarrhea, unspecified type R19.7 [facility] [address] [place] [address] 28032- 9475 May, [facility] [address] [place] [address] 21858- 6603 April, [facility] [address] [id number] April, Encounter for dental examination Z01.20 [facility] [id number] [place] [address] 26675- 9495 April, [facility] [address] [place] [address] 69388- 9998 April, Tremor R25.1 and Episodic tension-type headache, not intractable G44.219 [facility] [address] [place] [address] 39486- 4014 Mar, [facility] [address] [place] [address] 65102- 0732 Jan, Mood disorder F39 [facility] [id number] [place] [address] 52331 -7082 Jan, [facility] [address] [place] [address] 16929- 4049 Jan, [facility] [address] [place] [address] 31201- 0745 Jan, [facility] [address], [place] [address]- 8880 Jan, [facility] [address] [place] [address] 05931- 3929 Jan, [facility] [address] [place] [address] 62875- 1499 Jan, [facility] [id number] [place] [address] 68732 -9994 Dec, Acute diarrhea R19.7 [facility] [id number] [place] [address] 06139- 3394 Dec, [facility] [address] [place] [address] 04204- 0813 Dec, [facility] [address] [place] [address] 79132- 3863 Dec, [facility] [address] [place] [address] 38567 -6941 Dec, N&V (nausea and vomiting) R11.2 [facility] [address] [place] [address] 02896- 2430 Dec, Generalized anxiety disorder F41.1 [facility] [id number] [place] [address] 80240- 7422 Dec, Generalized anxiety disorder F41.1 [facility] [address] [place] [address] 16131- 7198 Nov, Post concussion syndrome F07.81 [facility] [id number] [place] [address] 14304- 1271 Nov, Generalized anxiety disorder F41.1 [facility] [address] [place] [address] 81411- 9090 Nov, [facility] [address] [place] [address] 78853- 4022 Nov, Generalized anxiety disorder F41.1 [facility] [address] [place] [address] [id number] Oct, Dental caries K02.9 [facility] [id number] [place] [address] 24625- 0556 Oct, [facility] [address] [place] [address] [id number] Oct, Dental examination Z01.20 [facility] [address] [id number] Oct, Encounter for dental examination Z01.20 [facility] [address] 51446- 3643 Oct, CAD (coronary artery disease) I25.10 [facility] [address] [place] [address] 27523- 7903 Sep, Generalized anxiety disorder F41.1 [facility] [address] [place] [address] 09290- 2895 Sep, [facility] [address] [place] [address] 86869- 0799 Sep, Rash and other nonspecific skin eruption R21 and Yeast vaginitis B37.3 [facility] [address] [place] [address] 53731- 0682 Sep, Generalized anxiety disorder F41.1 [facility] [address] [place] [address] 91670- 2310 Aug, Insect bites 919.[address] [facility] [address] [place] [address] 98357- 6830 Aug, Generalized anxiety disorder 300.02 [facility] [address] 89607- 9235 08 Aug, 2015 [facility] [address] [place] [address] 26466- 7736 Aug, [facility] [address] [address]- 1044 Aug, Generalized anxiety disorder 300.02 ; No condition on [place] II V71.09 ; Heart problem 429.[address] [facility] [id number] [place] [address] 57338- 6137 Aug, [facility] [id number] [place] [address] 85711- 1162 Jul, [facility] [id number] [place] [address] 20348- 2577 Jul, [facility] [id number] [place] [address] 76285- 7425 Jul, [facility] [id number] [place] [address] 62867- 9869 Jul, [facility] [id number] [place] [address] 52924- 5197 Jul, Rash 782.1 [facility] [address] [place] [address] 31375- 7931 Jul, UTI (urinary tract infection) 599.0 [facility] [id number] [place] [address] 44377- 3289 Jul, [facility] [address] [place] [address] 92382- 2063 Jun, Dysthymia 300.[address] 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 [address] [place] [address] 04516- 7278 May, [facility] [id number] [place] [address] 95735- 5666 May, [facility] [id number] [place] [address] 19439- 7[address] May, Unspecified breast screening V76.10 [facility] [address] [id number] [id number] May, Dental examination V72.2 [facility] [address] [id number], [place] [address] April, [facility] [address] [id number], [place] [address] April, [facility] [address] [id number][place] [id number] April, Dental examination V72.2 [facility] [address] [id number][place] [id number] April, Dental examination V72.2 [facility] [address] [id number], [place] [address] Mar, [facility] [address] [id number], [place] [address] Mar, [facility] [address] [id number] [address] Jan, [facility] [address] [id number] [address] 25 Jan, 2015 [facility] [address] [facility] [id number][place] [address] [address], [address] [facility] [address] [id number], [place] [address] [address], [address] [facility] [address] [id number], [place] [address] [address], [address] [facility] [address] [id number], [place] [address] [address] [facility] [address] [id number], [place] [address], [address] [facility] [address] [id number], [place] [address] 13 Jan, 2015 [facility] [place] [facility] [address] [id number] [place] [address] Jan, [facility] [place] [facility] [address] [id number] [place] [address] Jan, [facility] [place] [facility] [address] [id number] [place] [address] Jan, [facility] [place] [facility] [address] [id number] [place] [address] Jan, [facility] [place] [facility] [address] [id number] [place] [address] Jan, [facility] [place] [facility] [address] [id number] [place] [address] Jan, [facility] [place] [facility] [address] [id number] [place] [address] Jan, [facility] [place] [facility] [address] [id number] [place] [address] Jan, 2014 [facility] [place] [facility] [address] [id number] [place] [address] Jan, [facility] [place] [facility] [address] [facility] [id number] [place] [address] Jan, [facility] [place] [facility] [address] [id number] [place] [address] Jan, 2014 [facility] [place] [facility] [address] [id number] [place] [address] Jan, 2014 [facility] [place] [facility] [address] [id number] [place] [address] Jan, [facility] [place] [facility] [address] [id number] [place] [address] Jan, [facility] [place] [facility] [address] [id number] [place] [address] Dec, [facility] [place] [facility] [address] [id number] [place] [address] Dec, [facility] [address] [id number] [place] [address] 5629 Dec, [facility] [place] [facility] [address] [id number] [place] [address] Dec, [facility] [address] [id number] [place] [address] 0156 Nov, [facility] [place] [facility] [address] [id number] [place] [address] 4400 Nov, [facility] [address] [id number] [place] [address] 4635 Nov, [facility] [place] [facility] [address] [id number] [place] [address] 3[address] Nov, [facility] [place] [facility] [address] [id number] [place] [address]359 Nov, [facility] [address] [id number] [place] [address]- 9029 Nov, [facility] [place] [facility] [address] [id number] [place] [address] 38[address] Nov, [facility] [address] [id number] [place] [address] 1259 Oct, [facility] [place] [facility] [address] [id number] [place] [address] 1129 Oct, [facility] [place] [facility] [address] [id number] [place] [address]- 0314 Oct, [facility] [place] [facility] [address] [id number] [place] [address]- 5339 Oct, [facility] [place] [facility] [address] [id number] [place] [address] Oct, [facility] [place] [facility] [address] [id number] [place] [address] Oct, [facility] [place] [facility] [address] [id number] [place] [address]- 4297 Oct, [facility] [place] [facility] [address] [id number] [place] [address]- 6756 Oct, [facility] [place] [facility] [address] [id number] [place] [address]- 5280 Oct, [facility] [place] [facility] [address] [id number] [place] [address]- 0859 Oct, [facility] [place] [facility] [address] [id number] [place] [address]- 4846 Oct, [facility] [place] [facility] [address] [id number] [place] [address]- 9302 Oct, [facility] [place] [facility] [address] [id number] [place] [address]- 9230 Sep, [facility] [place] [facility] [address] [id number] [place] [address]- 4098 Sep, [facility] [place] [facility] [address] [id number] [place] [address]- 5222 Sep, [facility] [place] [facility] [address] [id number] [place] [address]- 4[address] Sep, [facility] [place] [facility] [address] [id number], [place] [address]- [address] Jul, [facility] [place] [facility] [address] [id number], [place] [address] Jul, [facility] [place] [facility] [address] [id number] [place] [address]- 7007 Jul, [facility] [place] [facility] [address] [id number] [place] [address]- 4707 Jul, [facility] [place] [facility] [address] [id number] [place] [address]- 8964 Jun, [facility] [place] [facility] [address] [id number], [place] [address] Jun, [facility] [address] [id number] [place] [address]- 2144 Jun, [facility] [place] [facility] [address] [id number] [place] [address]- 6084 Jun, [facility] [place] [facility] [address] [id number] [place] [address]- 7736 May, [facility] [place] [facility] [address] [id number] [place] [address]- 2105 May, [facility] [place] [facility] [address] [id number] [place] [address]- 5[address] April, [facility] [place] [facility] [address] [id number] [place] [address]- 3265 April, [facility] [address] [id number] [place] [address]- 1797 April, [facility] [place] [facility] [address] [id number] [place] [address]- 6989 April, [facility] [place] [facility] [address] [id number] [place] [address]- 5310 April, [facility] [place] [facility] [address] [id number] [place] [address] 4[address] April, [facility] [place] [facility] [address] [id number] [place] [address] 1523 April, [facility] [place] [facility] [address] [id number] [place] [address]- 6301 April, [facility] [place] [facility] [address] [id number] [place] [address]- 4623 April, [facility] [place] [facility] [address] [id number] [place] [address]- 8234 Mar, [facility] [place] [facility] [address] [id number] [place] [address]- 8660 Mar, [facility] [place] [facility] [address] [id number] [place] [address]- 3774 Mar, [facility] [place] [facility] [address] [id number] [place] [address]- 8152 Mar, [facility] [place] [facility] [address] [id number] [place] [address]- 4419 Jan, [facility] [place] [facility] [address] [id number] [place] [address]- 6001 Jan, [facility] [place] [facility] [address] [id number] [place] [address]- 9204 Jan, [facility] [place] [facility] [address] [id number] [place] [address]- 9454 Jan, [facility] [place] [facility] [address] [id number] [place] [address]- 4817 Jan, [facility] [place] [facility] [address] [id number] [place] [address]- 0594 Jan, [facility] [place] [facility] [address] [id number] [place] [address]- 8269 Jan, [facility] [place] [facility] [address] [id number] [place] [address]- 9200 Jan, [facility] [place] [facility] [address] [id number] [place] [address]- 6510 Jan, [facility] [place] [facility] [address] [id number] [place] [address]- 6483 Jan, [facility] [place] [facility] [address] [id number] [place] [address]- 7817 Jan, [facility] [place] [facility] [address] [id number] [place] [address]- 5678 Jan, [facility] [place] [facility] [address] [id number] [place] [address]- 1296 Dec, [facility] [place] [facility] [address] [id number] [place] [address]- 2546 Dec, [facility] [place] [facility] [address] [id number] [place] [address]- 7367 Dec, [facility] [place] [facility] [address] [id number] [place] [address]- 3734 Dec, [facility] [place] [facility] [address] [id number] [place] [address]- 8290 Nov, [facility] [place] [facility] [address] [id number] [place] [address] Nov, [facility] [place] [facility] [address] [id number] [place] [address]- 7950 Nov, [facility] [place] [facility] [address] [id number] [place] [address]- 9507 Nov, [facility] [place] [facility] [address] [id number] [place] [address] Oct, [facility] [place] [facility] [address] [id number] [place] [address]- 7767 Oct, [facility] [place] [facility] [address] [id number] [place] [address]- 5369 Sep, [facility] [place] [facility] [address] [id number] [place] [address]- 1326 Sep, [facility] [place] [facility] [address] [id number] [place] [address]- 8216 Jul, [facility] [place] [facility] [address] [id number] [place] [address]- 2201 Jul, [facility] [place] [facility] [address] [id number] [place] [address]- 9080 Jun, [facility] [place] [facility] [address] [id number] [place] [address]- 3297 Jun, [facility] [place] [facility] [address] [id number] [place] [address]- 6014 Jun, [facility] [place] [facility] [address] [id number] [place] [address]- 6303 26 May, 2013 [facility] [address] [id number] [place] [address]- 2156 May, [facility] [address] [id number] [place] [address]- 2590 17 May, 2013 [facility] [address] [id number] [place] [address]- 2775 May, [facility] [address] [id number] [place] [address]- 6846 May, [facility] [address] [id number] [place] [address]- 1227 April, [facility] [address] [id number] [place] [address]- 8651 April, [facility] [address] [id number] [place] [address]- 8195 April, [facility] [address] [id number] [place] [address]- 1155 April, [facility] [address] [id number] [place] [address]- 5308 April, [facility] [address] [id number] [place] [address]- 2436 April, [facility] [address] [id number] [place] [address]- 7692 Mar, [facility] [address] [id number] [place] [address]- 6950 15 Mar, 2013 [facility] [address] [id number] [place] [address]- 4722 28 Jan, 2013 [facility] [address] [id number] [place] [address]- 2546 Jan, [facility] [address] [id number] [place] [address]- 2291 Jan, [facility] [address] [id number] [place] [address]- 5224 Jan, [facility] [place] [facility] [address] [id number] [place] [address]- 9566 Jan, [facility] [place] [facility] [address] [id number] [place] [address]- 5266 Jan, [facility] [place] [facility] [address] [id number] [place] [address]- 4074 Jan, [facility] [place] [facility] [address] [id number] [place] [address]- 3786 Jan, [facility] [place] [facility] [address] [id number] [place] [address]- 6523 Jan, [facility] [address] [id number] [place] [address]- 1120 Jan, [facility] [place] [facility] [address] [id number] [place] [address]- 2066 Jan, [facility] [address] [id number] [place] [address]- 0083 Dec, [facility] [place] [facility] [address] [id number] [place] [address]- 9333 Nov, [facility] [place] [facility] [address] [id number] [place] [address]- 9174 Nov, [facility] [place] [facility] [address] [id number] [place] [address]- 3044 Nov, [facility] [place] [facility] [address] [id number] [place] [address]- 6818 Nov, [facility] [place] [facility] [address] [facility] [id number] [place] [address]- 8513 Nov, [facility] [place] [facility] [address] [facility] [id number] [place] [address]- 3582 Nov, [facility] [place] [facility] [address] [id number] [place] [address]- 7086 20 Nov, 2012 [facility] [address] [id number] [place] [address]- 4508 Nov, [facility] [place] [facility] [address] [id number] [place] [address]- 2136 Nov, [facility] [address] [id number] [place] [address]- 9535 18 Nov, 2012 [facility] [place] [facility] [address] [id number] [place] [address]- 8507 18 Nov, 2012 [facility] [address] [facility] [id number] [place] [address], [place] [address]- 0130 Nov, [facility] [address] [facility] [id number] [place] [address]- 7301 Nov, [facility] [address] [facility] [id number] [place] [address]- 0345 Oct, [facility] [address] [id number] [place] [address]- 7012 Oct, [facility] [place] [facility] [address] [facility] [id number] [place] [address]- 2402 Oct, [facility] [address] [facility] [id number] [place] [address]- 3278 Sep, [facility] [place] [facility] [address] [facility] [id number] [place] [address]- 5352 Sep, [facility] [place] [facility] [address] [facility] [id number], [place] [address]- 8983 Sep, [facility] [place] [facility] [address] [facility] [id number] [place] [address]347 10 Sep, 2012 [facility] [place] [facility] [address] [facility] [id number] [place] [address]- 3643 27 Aug, 2012 [facility] [place] [facility] [address] [facility] [id number] [place] [address]- 4213 Aug, [facility] [address] [id number] [place] [address]- 4086 Jul, [facility] [place] [facility] [address] [id number] [place] [address]- 6564 May, [facility] [place] [facility] [address] [id number] [place] [address]- 5461 May, [facility] [place] [facility] [address] [id number] [place] [address]- 0294 May, [facility] [place] [facility] [address] [id number] [place] [address]- 9691 April, [facility] [place] [facility] [address] [id number] [place] [address]- 0376 Mar, [facility] [place] [facility] [address] [id number] [place] [address]- 5824 Mar, [facility] [place] [facility] [address] [id number] [place] [address]- 2826 Mar, [facility] [place] [facility] [address] [id number] [place] [address]- 9827 Jan, [facility] [place] [facility] [address] [id number] [place] [address]- 7815 Jan, [facility] [place] [facility] [address] [id number] [place] [address]- 9780 Jan, [facility] [place] [facility] [address] [id number], [place] [address]- 1711 Dec, [facility] [place] [facility] [address] [id number] [place] [address]- 7904 Dec, [facility] [place] [facility] [address] [id number] [place] [address]- 7616 Dec, [facility] [place] [facility] [address] [id number], [place] [address]- 2426 Dec, [facility] [place] [facility] [address] [id number], [place] [address]- 1620 28 Nov, 2011 [facility] [place] [facility] [address] [id number] [place] [address]- 7219 15 Nov, 2011 [facility] [place] [facility] [address] [id number] [place] [address]- 8986 03 Nov, 2011 [facility] [place] [facility] [address] [id number] [place] [address]- 7776 Oct, [facility] [place] [facility] [address] [id number] [place] [address]- 0025 31 Sep, 2011 [facility] [place] [facility] [address] [id number] [place] [address]- 5396 26 Sep, 2011 [facility] [place] [facility] [address] [id number] [place] [address]- 9417 13 Sep, 2011 [facility] [place] [facility] [address] [facility] [id number] [place] [address]- 0354 15 Nov, 2010 [facility] [place] [facility] [address] [id number] [place] [address]- 0826 23 Oct, 2010 [facility] [place] [facility] [address] [facility] [id number] [place] [address]- 0414 Oct, [facility] [place] [facility] [address] [facility] [id number] [place] [address]- 0948 18 Oct, 2010 [facility] [place] [facility] [address] [id number] [place] [address]- 8911 16 Oct, 2010 [facility] [place] [facility] [address] [id number] [place] [address]- 9288 11 Sep, 2010 [facility] [place] [facility] [address] [id number] [place] [address]- 6232 April, [facility] [place] [facility] [address] [id number] [place] [address]- 5977 29 Nov, 2009 [facility] [place] [facility] [address] [facility] [id number] [place] [address]- 6450 24 Nov, 2009 [facility] [place] [facility] [address] [facility] [id number][place] [address] Nov, [facility] [address] [id number] [address] Nov, [facility] [address] [facility] [id number] [address]- 3427 Nov, [facility] [address] [id number], [place] [address] 7806 Oct, [facility] [address] [id number] [address] 1646 Oct, [facility] [id number] [address] Sep, [facility] [address] [id number] [address]128 Jan, IMMUNIZATIONS No Known Immunizations SOCIAL HISTORY [...] History Depression Medical History At [facility] 04[facility]2016 Started on [employer] [facility] [...] inpatient psych treatments in past in [place] oct 2016 Hospitalization History medical lodge Nov 2016
--- OUTSIDE RECORDS SUMMARY | 2019-02-11 14:35 | XMS REPORT ---
Author Author WOLF AGUIRRE [facility] Address [address] [place] [address] Care Team Providers Care Engraving Plate Maker Name Role Phone WOLF AGUIRRE Unavailable PROBLEMS Type Condition ICD9-CM Code PHY45-FJ Code Onset Dates Condition Status SNOMED Code Problem Sundowning F05 Active 488928766 Problem Constipation, unspecified constipation type K59.00 Active 77490771 Problem Reactive depression F32.9 Active 11405204 Problem Vascular dementia with behavior disturbance F01.51 Active 370740158460909 Problem Insomnia, unspecified type G47.00 Active 501153232 Problem Generalized anxiety disorder F41.1 Active 97052913 Problem Other chronic pain G89.29 Active 80278285 Problem Severe episode of recurrent major depressive disorder, without psychotic features F33.2 Active 74575988 Problem Slow transit constipation K59.01 Active 70800725 Problem 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 Active 002975100 Problem Obsessive thinking F42.8 Active 92514543 Problem Failure to thrive in adult R62.7 Active 544963593 Problem Dysthymic disorder F34.1 Active 99106348 Problem Hypertension I10 Active 88798614 Problem Mood disorder F39 Active 83391712 Problem Irritable bowel syndrome with diarrhea K58.0 Active 329817585 Problem Oropharyngeal dysphagia R13.12 Active 86814730 Problem 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 Active 25279997 Problem Other chronic pain G89.29 Active 98206189 Problem Primary insomnia F51.01 Active 8213444 Problem Poor appetite R63.0 Active 33282963 Problem Atherosclerotic heart disease of [place] 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 Active 653706871653938 Problem Iron deficiency anemia secondary to inadequate dietary iron intake D50.8 Active 487283738 Problem Coarse tremors G25.2 Active 52496220 Problem Gastroesophageal reflux disease without esophagitis K21.9 Active 661152147 Problem Essential hypertension I10 Active 06228616 ALLERGIES No Information ENCOUNTERS Encounter Location Date Diagnosis [facility] [address], [place] [address] Sep, [address] [id number] Sep, Obsessive thinking F42.8 [facility] [address], [place] [address] Sep, [facility] [id number] [place] [address] 30536- 5538 Sep, [facility] [id number] [place] [address] 36437- 9847 Aug, [facility] [id number] [place] [address] 83302- 7603 Aug, [facility] [id number] [place] [address] 95328- 8700 Aug, Positive urine drug screen R82.[address] [id number] Aug, [facility] [id number] [place] [address] 66225- 4945 Aug, [facility] [id number] [place] [address] 91294- 1741 Aug, [facility] [address], [place] [address] Aug, Irritable bowel syndrome with diarrhea K58.0 [facility] [address], [place] [address] 4[address] Aug, [facility] [id number] [place] [address] 72621- 3692 Aug, Obsessive thinking F42.8 ; Insomnia, unspecified type G47.00 and Other chronic pain G89.29 [facility] [address] [place] [id number] Aug, Obsessive thinking F42.8 ; Irritable bowel syndrome with diarrhea K58.0 ; Pain in right foot M79.671 ; Pain of left foot M79.672 and Gastroesophageal reflux disease without esophagitis K21.9 [facility] [address], [place] [address] 65[address] Aug, [facility] [address], [place] [address] Jul, [facility] [id number] [place] [address] 37711- 6751 Jun, [facility] [id number] [place] [address] 95940- 3014 Jun, [facility] [address] [id number] Jun, Left lower quadrant pain R10.32 and Left leg pain M79.605 [facility] [id number] [place] [address] 08424- 0224 Jun, [facility] [address] [id number] Jun, Pain in left hip M25.552 ; Pain in right hip M25.551 and Primary insomnia F51.01 [facility] [id number] [place] [address] 89278- 6686 Jun, [facility] [address] [id number] May, [facility] [address], [place] [address] 8[address] May, [facility] [id number] [place] [address] 39841- 7546 May, [facility] [address] [id number] May, Mood disorder F39 [facility] [address], [place] [address] 2[address] May, [facility] [address] [place] [address] 79430- 5202 April, [facility] [address] [place] [id number] April, Generalized anxiety disorder F41.1 ; Obsessive thinking F42.8 and Insomnia , unspecified type G47.00 [facility] [address] [address] April, [facility] [id number] [place] [address] 778472- 9387 April, Rash of face R21 [facility] [id number] [place] [address] 52551- 4138 Mar, [facility] [id number] [place] [address] 02688- 2407 Mar, [facility] [id number] [place] [address] 069792- 1640 Mar, [facility] [id number] [place] [address] 68167- 7509 Jan, [facility] [id number] [place] [address] 99376- 0824 Jan, [facility] [address] [place] [id number] Jan, Constipation, unspecified constipation type K59.00 and Other chronic pain G89.29 [facility] [address], [place] [address] Jan, [facility] [address] [place] [id number] Jan, Obsessive thinking F42.8 and Coarse tremors G25.2 [facility] [id number] [place] [address] [id number] Jan, [facility] [id number] [place] [address] [id number] Jan, [facility] [address] [place] [id number] Jan, Generalized anxiety disorder F41.1 ; Obsessive thinking F42.8 ; Callus of foot L84 and 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 [facility] [id number] [place] [address] 40272- 8263 Dec, Generalized anxiety disorder F41.1 and Severe episode of recurrent major depressive disorder, without psychotic features F33.2 [facility] [id number] [place] [address] 44484- 3164 Nov, [facility] [id number] [place] [address] 48985- 8347 Nov, [facility] [address] [place] [id number] Nov, Oropharyngeal dysphagia R13.12 ; Generalized anxiety disorder F41.1 and 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 [facility] [id number] [place] [address] 17465- 1831 Nov, [facility] [address] [id number] Nov, [facility] [id number] [place] [address] 05985- 6523 Nov, [facility] [id number] [place] [address] 96464- 3430 Nov, [facility] [id number] [place] [address] 23607- 3336 Oct, Constipation, unspecified constipation type K59.00 and Mood disorder F39 [facility] [id number] [place] [address] 55633- 0667 Oct, [facility] [id number] [place] [address] [id number] Sep, [facility] [id number] [place] [address] [id number] Sep, [facility] [id number] [place] [address] [id number] Sep, [facility] [address] [place] [id number] Sep, [facility] [address] [place] [id number] Sep, Generalized abdominal pain R10.84 [facility] [address], [place] [address] 3[address] Sep, [facility] [address] [id number] Sep, Generalized anxiety disorder F41.1 and Primary insomnia F51.01 [facility] [address] [id number] Aug, [facility] [id number] [place] [address] [id number] Aug, Generalized anxiety disorder F41.1 [facility] [id number], [place] [address] 1786 Jul, [facility] [address] [place] [id number] Jul, Obsessive thinking F42.8 [facility] [address], [place] [address] 3729 Jul, Generalized anxiety disorder F41.1 and Irritable bowel syndrome with diarrhea K58.0 [facility] [id number] [id number] Jul, Generalized anxiety disorder F41.1 [facility] [address] [id number] Jun, Generalized anxiety disorder F41.1 [facility] [id number] [address] May, [facility] [address] [id number] May, Generalized anxiety disorder F41.1 ; Irritable bowel syndrome with diarrhea K58.0 and Coarse tremors G25.2 [facility] [id number], [place] [address] 3099 April, [facility] [address], [place] [address]- 5778 April, [facility] [address], [place] [address]- 9339 April, [facility] [address], [place] [address]- 7993 Mar, [facility] [address] [place] [id number] Mar, Severe episode of recurrent major depressive disorder, without psychotic features F33.2 and Pain in left hip M25.552 [facility] [address] [place] [address] 31256- 7990 Mar, [facility] [id number] [place] [address] 21788- 4588 Mar, [facility] [id number] [place] [address] 86639- 6609 Mar, [facility] [id number] [place] [address] 58929- 0335 Mar, Pain in right hip M25.551 and Self-care deficit in patient living alone R46.89 [facility] [address], [place] [address] Jan, Other chronic pain G89.29 ; Pain in left hip M25.552 and Slow transit constipation K59.01 [facility] [address] [place] [address] 66804- 3469 Jan, [facility] [address], [place] [address] Dec, Other depression F32.89 ; Constipation, unspecified constipation type K59.00 and Insomnia, unspecified type G47.00 [facility] [address], [place] [address]- 7930 Nov, Reactive depression F32.9 ; Chronic idiopathic constipation K59.04 ; Generalized anxiety disorder F41.1 ; Coarse tremors G25.2 ; Gastroesophageal reflux disease without esophagitis K21.9 ; Dysthymic disorder F34.1 ; Vitamin deficiency, unspecified E56.9 and Primary insomnia F51.01 [facility] [id number] [place] [address] 52481- 0024 Nov, [facility] [address] 10163- 9890 Nov, [facility] [address] 47550- 4739 Nov, [facility] [address] 64426- 6582 Nov, Reactive depression F32.9 ; Essential hypertension I10 ; Generalized anxiety disorder F41.1 ; Atherosclerotic heart disease of [place] 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 ; Pain in right hip M25.551 ; Other chronic pain G89.29 ; Chronic idiopathic constipation K59.04 ; Primary insomnia F51.01 ; Coarse tremors G25.2 ; Gastroesophageal reflux disease without esophagitis K21.9 ; Iron deficiency anemia secondary to inadequate dietary iron intake D50.8 and Vitamin deficiency, unspecified E56.9 [facility] [address] 55994- 9762 Oct, [facility] [id number] [place] [address] 51562- 3880 Oct, [facility] [id number] [place] [address] 99844- 9782 18 Oct, 2016 [facility] [id number] [place] [address] 97869- 9292 16 Oct, 2016 Generalized anxiety disorder F41.1 ; Poor appetite R63.0 ; Dehydration E86.0 and Failure to thrive in adult R62.7 [facility] [id number] [place] [address] 37258- 0392 07 Oct, 2016 Generalized anxiety disorder F41.1 and Failure to thrive in adult R62.7 [facility] [address] [place] [address]- 6292 Oct, [facility] [id number] [place] [address] 72148- 1274 Oct, [facility] [id number] [place] [address] 62870 -4696 Sep, Vaginal discharge N89.8 and Acute cystitis with hematuria N30.01 [facility] [id number] [place] [address] 65204- 3848 Sep, [facility] [id number] [place] [address] 31323- 6839 Sep, [facility] [id number] [place] [address] 57435- 9906 Sep, Dysthymic disorder F34.1 ; Acute vaginitis N76.0 ; Dysuria R30.0 and Vaginal yeast infection B37.3 [facility] [id number] [place] [address] 31854- 4332 Aug, [facility] [id number] [place] [address] 11281- 6742 Aug, [facility] [id number] [place] [address] 84250 -0370 Aug, Foul smelling urine R82.90 ; Rapid heart rate R00.0 and Flatulence R14.3 [facility] [address] [place] [address] 14404- 5306 Aug, [facility] [id number] [place] [address] 69235- 7845 Jul, Constipation, unspecified constipation type K59.00 ; Weak R53.1 ; Poor appetite R63.0 ; Coronary artery disease involving [place] heart without angina pectoris, unspecified vessel or lesion type I25.10 ; Fatigue, unspecified type R53.83 ; Urinary incontinence, unspecified type R32 and Insomnia, unspecified type G47.00 [facility] [id number] [place] [address] 27717- 3764 Jul, [facility] [id number] [place] [address] 27303- 4571 Jun, Dysuria R30.0 [facility] [id number] [place] [address] 15228- 8343 Jun, [facility] [id number] [place] [address] 95238- 5425 Jun, Urinary tract infection, site not specified N39.0 ; Acute vaginitis N76.0 and Diarrhea, unspecified type R19.7 [facility] [id number] [place] [address] 71278- 4895 May, [facility] [id number] [place] [address] 22063- 7226 April, [facility] [address] [id number] April, Encounter for dental examination Z01.20 [facility] [id number] [place] [address] 77703- 4767 April, [facility] [id number] [place] [address] 01878- 3270 April, Tremor R25.1 and Episodic tension-type headache, not intractable G44.219 [facility] [id number] [place] [address] 78586- 2320 Mar, [facility] [id number] [place] [address] 18229- 5885 Jan, Mood disorder F39 [facility] [id number] [place] [address] 77751 -0710 Jan, [facility] [id number] [place] [address] 34814- 8316 Jan, [facility] [id number] [place] [address] 14285- 4611 Jan, [facility] [address], [place] [address]- 3393 Jan, [facility] [id number] [place] [address] 76099- 9865 Jan, [facility] [address] [place] [address] 57360- 2241 Jan, [facility] [id number] [place] [address] 80543 -1231 Dec, Acute diarrhea R19.7 [facility] [id number] [place] [address] 09468- 8961 Dec, [facility] [id number] [place] [address] 39627- 2708 Dec, [facility] [id number] [place] [address] 29035- 1392 Dec, [facility] [id number] [place] [address] 90594 -1367 Dec, N&V (nausea and vomiting) R11.2 [facility] [id number] [place] [address] 82524- 8793 Dec, Generalized anxiety disorder F41.1 [facility] [id number] [place] [address] 56790- 4905 Dec, Generalized anxiety disorder F41.1 [facility] [address] [place] [address] 97983- 3042 Nov, Post concussion syndrome F07.81 [facility] [id number] [place] [address] 98835- 1646 Nov, Generalized anxiety disorder F41.1 [facility] [address] [place] [address] 06340- 9738 Nov, [facility] [address] [place] [address] 88648- 8384 Nov, Generalized anxiety disorder F41.1 [facility] [address] [place] [address] [id number] Oct, Dental caries K02.9 [facility] [id number] [place] [address] 80586- 8446 Oct, [facility] [address] [place] [address] [id number] Oct, Dental examination Z01.20 [facility] [address] [id number] Oct, Encounter for dental examination Z01.20 [facility] [address] 42114- 9878 Oct, CAD (coronary artery disease) I25.10 [facility] [id number] [place] [address] 64848- 6026 Sep, Generalized anxiety disorder F41.1 [facility] [id number] [place] [address] 20702- 3241 Sep, [facility] [id number] [place] [address] 75714- 6727 Sep, Rash and other nonspecific skin eruption R21 and Yeast vaginitis B37.3 [facility] [id number] [place] [address] 09754- 1841 Sep, Generalized anxiety disorder F41.1 [facility] [id number] [place] [address] 20121- 3886 Aug, Insect bites 919.4 and Hemorrhoids 455.6 [facility] [id number] [place] [address] 14998- 9189 Aug, Generalized anxiety disorder 300.02 [facility] [address] 90194- 6974 08 Aug, 2015 [facility] [id number] [place] [address] 59501- 9705 Aug, [facility] [address] [address]- 7998 Aug, Generalized anxiety disorder 300.02 ; No condition on Lyndora II V71.09 ; Heart problem 429.9 and Hypertension 401.9 [facility] [id number] [place] [address] 05437- 4136 Aug, [facility] [id number] [place] [address] 84106- 9776 Jul, [facility] [id number] [place] [address] 74883- 7018 Jul, [facility] [id number] [place] [address] 67151- 6458 Jul, [facility] [id number] [place] [address] 52133- 3851 Jul, [facility] [id number] [place] [address] 16625- 3433 Jul, Rash 782.1 [facility] [id number] [place] [address] 15499- 2593 Jul, UTI (urinary tract infection) 599.0 [facility] [id number] [place] [address] 42066- 3406 Jul, [facility] [id number] [place] [address] 19704- 2889 Jun, Dysthymia 300.4 and Anxiety 300.00 [facility] [address] [place] [address] 51499- 9926 Jun, 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 [facility] [id number] [place] [address] 72443- 7603 May, [facility] [id number] [place] [address] 00579- 7291 May, [facility] [id number] [place] [address] 35087- 0911 May, Unspecified breast screening V76.10 [facility] [address] [id number] [id number] May, Dental examination V72.2 [facility] [address] [id number], [place] [address]- 5856 April, [facility] [address] [id number], [place] [address]- 2546 April, [facility] [address] [id number] [id number] April, Dental examination V72.2 [facility] [address] [id number][place] [id number] April, Dental examination V72.2 [facility] [address] [id number], [place] [address]- 5076 Mar, [facility] [address] [id number], [place] [address]- 2236 Mar, [facility] [address] [id number], [place] [address]- 3345 Jan, [facility] [address] [id number]- 2066 25 Jan, 2015 [facility] [address] [facility] [id number][place] [address] 18 Jan, 2015 [facility] [address] [id number], [place] [address] 18 Jan, 2015 [facility] [address] [id number], [place] [address] 16 Jan, 2015 [facility] [address] [id number], [place] [address] 16 Jan, 2015 [facility] [address] [id number], [place] [address] 13 Jan, 2015 [facility] [address] [id number], [place] [address] 13 Jan, 2015 [facility] [place] [facility] [address] [id number] [place] [address] Jan, [facility] [place] [facility] [address] [id number] [place] [address] Jan, [facility] [place] [facility] [address] [id number] [place] [address] Jan, [facility] [place] [facility] [address] [id number] [place] [address] Jan, [facility] [place] [facility] [address] [id number] [place] [address] Jan, [facility] [place] [facility] [address] [id number] [place] [address] Jan, [facility] [place] [facility] [address] [id number] [place] [address] Jan, [facility] [place] [facility] [address] [id number] [place] [address] Jan, 2014 [facility] [place] [facility] [address] [id number] [place] [address]- 1286 Jan, [facility] [place] [facility] [address] [facility]NOTE 3] [id number] [place] [address] Jan, [facility] [place] [facility] [address] [id number] [place] [address] 6115 Jan, 2014 [facility] [place] [facility] [address] [id number] [place] [address] 2746 Jan, 2014 [facility] [place] [facility] [address] [id number] [place] [address] 1738 Jan, [facility] [place] [facility] [address] [id number] [place] [address] Jan, [facility] [place] [facility] [address] [id number] [place] [address]- 7292 Dec, [facility] [place] [facility] [address] [id number] [place] [address]- 8052 Dec, [facility] [address] [id number] [place] [address]- 8036 Dec, [facility] [place] [facility] [address] [id number] [place] [address]- 2639 Dec, [facility] [address] [id number] [place] [address]- 8402 Nov, [facility] [place] [facility] [address] [id number] [place] [address]- 4511 Nov, [facility] [address] [id number] [place] [address]- 9656 Nov, [facility] [place] [facility] [address] [id number] [place] [address]- 5097 Nov, [facility] [place] [facility] [address] [id number] [place] [address]- 8313 Nov, [facility] [address] [id number] [place] [address]- 2952 Nov, [facility] [place] [facility] [address] [id number] [place] [address]- 7706 Nov, [facility] [address] [id number] [place] [address]- 1610 Oct, [facility] [place] [facility] [address] [id number] [place] [address]- 2928 Oct, [facility] [place] [facility] [address] [id number] [place] [address]- 5020 Oct, [facility] [place] [facility] [address] [id number] [place] [address]- 9685 Oct, [facility] [place] [facility] [address] [id number] [place] [address]- 0871 Oct, [facility] [place] [facility] [address] [id number] [place] [address] Oct, [facility] [place] [facility] [address] [id number] [place] [address]- 2144 Oct, [facility] [place] [facility] [address] [id number] [place] [address]- 4769 Oct, [facility] [place] [facility] [address] [id number] [place] [address]- 2838 Oct, [facility] [place] [facility] [address] [id number] [place] [address]- 7510 Oct, [facility] [place] [facility] [address] [id number] [place] [address]- 6230 Oct, [facility] [place] [facility] [address] [id number] [place] [address]- 1156 Oct, [facility] [place] [facility] [address] [id number] [place] [address]- 9752 Sep, [facility] [place] [facility] [address] [id number] [place] [address]- 4966 Sep, [facility] [place] [facility] [address] [id number] [place] [address]- 8557 Sep, [facility] [place] [facility] [address] [id number] [place] [address]- 3420 Sep, [facility] [place] [facility] [address] [id number], [place] [address]- 9771 Jul, [facility] [place] [facility] [address] [id number], [place] [address] 9334 Jul, [facility] [place] [facility] [address] [id number] [place] [address]- 3063 Jul, [facility] [place] [facility] [address] [id number] [place] [address]- 0009 Jul, [facility] [place] [facility] [address] [id number] [place] [address]- 2594 Jun, [facility] [place] [facility] [address] [id number], [place] [address] 0137 Jun, [facility] [address] [id number] [place] [address]- 1693 Jun, [facility] [place] [facility] [address] [id number] [place] [address]- 4180 Jun, [facility] [place] [facility] [address] [id number] [place] [address]- 0253 May, [facility] [place] [facility] [address] [id number] [place] [address]- 6278 May, [facility] [place] [facility] [address] [id number] [place] [address]- 0266 April, [facility] [place] [facility] [address] [id number] [place] [address]- 7168 April, [facility] [address] [id number] [place] [address]- 3211 April, [facility] [place] [facility] [address] [id number] [place] [address]- 5948 April, [facility] [place] [facility] [address] [id number] [place] [address]- 0733 April, [facility] [place] [facility] [address] [id number] [place] [address]- 5590 April, [facility] [place] [facility] [address] [id number] [place] [address]- 8576 April, [facility] [place] [facility] [address] [id number] [place] [address]- 3619 April, [facility] [place] [facility] [address] [id number] [place] [address]- 7174 April, [facility] [place] [facility] [address] [id number] [place] [address]- 3537 Mar, [facility] [place] [facility] [address] [id number] [place] [address]- 9575 Mar, [facility] [place] [facility] [address] [id number] [place] [address]- 1338 Mar, [facility] [place] [facility] [address] [id number] [place] [address]- 3163 Mar, [facility] [place] [facility] [address] [id number] [place] [address]- 8160 Jan, [facility] [place] [facility] [address] [id number] [place] [address]- 0362 Jan, [facility] [place] [facility] [address] [id number] [place] [address]- 3340 Jan, [facility] [place] [facility] [address] [id number] [place] [address]- 1828 Jan, [facility] [place] [facility] [address] [id number] [place] [address]- 0832 Jan, [facility] [place] [facility] [address] [id number] [place] [address]- 2029 Jan, [facility] [place] [facility] [address] [id number] [place] [address]- 6658 Jan, [facility] [place] [facility] [address] [id number] [place] [address]- 0840 Jan, [facility] [place] [facility] [address] [id number] [place] [address]- 6275 Jan, [facility] [place] [facility] [address] [id number] [place] [address]- 8568 Jan, [facility] [place] [facility] [address] [id number] [place] [address]- 1260 Jan, [facility] [place] [facility] [address] [id number] [place] [address]- 3753 Jan, [facility] [place] [facility] [address] [id number] [place] [address]- 2345 Dec, [facility] [place] [facility] [address] [id number] [place] [address]- 2546 Dec, [facility] [place] [facility] [address] [id number] [place] [address]- 8583 Dec, [facility] [place] [facility] [address] [id number] [place] [address]- 0842 Dec, [facility] [place] [facility] [address] [id number] [place] [address]- 8687 Nov, [facility] [place] [facility] [address] [id number] [place] [address]285 Nov, [facility] [place] [facility] [address] [id number] [place] [address]- 8666 Nov, [facility] [place] [facility] [address] [id number] [place] [address]- 1463 Nov, [facility] [place] [facility] [address] [id number] [place] [address] Oct, [facility] [place] [facility] [address] [id number] [place] [address]- 3212 Oct, [facility] [place] [facility] [address] [id number] [place] [address]- 8466 Sep, [facility] [place] [facility] [address] [id number] [place] [address]- 2104 Sep, [facility] [place] [facility] [address] [id number] [place] [address]- 0934 Jul, [facility] [place] [facility] [address] [id number] [place] [address]- 5161 Jul, [facility] [place] [facility] [address] [id number] [place] [address]- 5611 Jun, [facility] [place] [facility] [address] [id number] [place] [address]- 4292 Jun, [facility] [place] [facility] [address] [id number] [place] [address]- 9028 Jun, [facility] [place] [facility] [address] [id number] [place] [address]- 1733 26 May, 2013 [facility] [address] [id number] [place] [address]- 9404 May, [facility] [address] [id number] [place] [address]- 6725 17 May, 2013 [facility] [address] [id number] [place] [address]- 4303 May, [facility] [address] [id number] [place] [address]- 0707 May, [facility] [address] [id number] [place] [address]- 0141 April, [facility] [address] [id number] [place] [address]- 1605 April, [facility] [address] [id number] [place] [address]- 6091 April, [facility] [address] [id number] [place] [address]- 5382 April, [facility] [address] [id number] [place] [address]- 1759 April, [facility] [address] [id number] [place] [address]- 3908 April, [facility] [address] [id number] [place] [address]- 7114 Mar, [facility] [address] [id number] [place] [address]- 1514 15 Mar, 2013 [facility] [address] [id number] [place] [address]- 2106 28 Jan, 2013 [facility] [address] [id number] [place] [address]- 2546 Jan, [facility] [address] [id number] [place] [address]- 8279 Jan, [facility] [address] [id number] [place] [address]- 3191 Jan, [facility] [place] [facility] [address] [id number] [place] [address]- 3146 Jan, [facility] [place] [facility] [address] [id number] [place] [address]- 2266 Jan, [facility] [place] [facility] [address] [id number] [place] [address]- 9270 Jan, [facility] [place] [facility] [address] [id number] [place] [address]- 5896 Jan, [facility] [place] [facility] [address] [id number] [place] [address]- 1007 Jan, [facility] [address] [id number] [place] [address]- 5720 Jan, [facility] [place] [facility] [address] [id number] [place] [address]- 4743 Jan, [facility] [address] [id number] [place] [address]- 5042 Dec, [facility] [place] [facility] [address] [id number] [place] [address]- 3352 Nov, [facility] [place] [facility] [address] [id number] [place] [address]- 5252 Nov, [facility] [place] [facility] [address] [id number] [place] [address]- 0285 Nov, [facility] [place] [facility] [address] [id number] [place] [address]- 7905 Nov, [facility] [place] [facility] [address] [facility]] [id number] [place] [address]- 8432 Nov, [facility] [place] [facility] [address] [facility]NOTE [facility]] [id number] [place] [address]- 2689 Nov, [facility] [place] [facility] [address] [id number] [place] [address]- 7759 20 Nov, 2012 [facility] [address] [id number] [place] [address]- 8256 Nov, [facility] [place] [facility] [address] [id number] [place] [address]- 0406 Nov, [facility] [address] [id number] [place] [address]- 6200 18 Nov, 2012 [facility] [place] [facility] [address] [id number] [place] [address]- 9197 18 Nov, 2012 [facility] [address] [facility]] [id number] [place] [address], [place] [address]- 1324 Nov, [facility] [address] [facility]] [id number] [place] [address]- 8057 Nov, [facility] [address] [facility]] [id number] [place] [address]- 9349 Oct, [facility] [address] [id number] [place] [address]- 4458 Oct, [facility] [place] [facility] [address] [facility]] [id number] [place] [address]- 7572 Oct, [facility] [address] [facility]] [id number] [place] [address]- 0314 Sep, [facility] [place] [facility] [address] [facility]NOTE 3] [id number] [place] [address]- 9203 Sep, [facility] [place] [facility] [address] [facility]] [id number], [place] [address]- 1340 Sep, [facility] [place] [facility] [address] [facility]] [id number] [place]- 1308 10 Sep, 2012 [facility] [place] [facility] [address] [facility]] [id number] [place] [address]- 5652 27 Aug, 2012 [facility] [place] [facility] [address] [facility]] [id number] [place] [address]- 1234 Aug, [facility] [address] [id number] [place] [address]- 6467 Jul, [facility] [place] [facility] [address] [id number] [place] [address]- 4675 May, [facility] [place] [facility] [address] [id number] [place] [address]- 1055 May, [facility] [place] [facility] [address] [id number] [place] [address]- 8955 May, [facility] [place] [facility] [address] [id number] [place] [address]- 9945 April, [facility] [place] [facility] [address] [id number] [place] [address]- 1696 Mar, [facility] [place] [facility] [address] [id number] [place] [address]- 2881 Mar, [facility] [place] [facility] [address] [id number] [place] [address]- 1770 Mar, [facility] [place] [facility] [address] [id number] [place] [address]- 9682 Jan, [facility] [place] [facility] [address] [id number] [place] [address]- 5788 Jan, [facility] [place] [facility] [address] [id number] [place] [address]- 6065 Jan, [facility] [place] [facility] [address] [id number], [place] [address]- 4944 Dec, [facility] [place] [facility] [address] [id number] [place] [address]- 0207 Dec, [facility] [place] [facility] [address] [id number] [place] [address]- 5696 Dec, [facility] [place] [facility] [address] [id number], [place] [address]- 1606 Dec, [facility] [place] [facility] [address] [id number], [place] [address]- 0196 28 Nov, 2011 [facility] [place] [facility] [address] [id number] [place] [address]- 0140 15 Nov, 2011 [facility] [place] [facility] [address] [id number] [place] [address]- 3916 03 Nov, 2011 [facility] [place] [facility] [address] [id number] [place] [address]- 3346 Oct, [facility] [place] [facility] [address] [id number] [place] [address]- 1294 31 Sep, 2011 [facility] [place] [facility] [address] [id number] [place] [address]- 6883 26 Sep, 2011 [facility] [place] [facility] [address] [id number] [place] [address]- 2877 13 Sep, 2011 [facility] [place] [facility] [address] [facility]] [id number] [place] [address]- 6165 15 Nov, 2010 [facility] [place] [facility] [address] [id number] [place] [address]- 8100 23 Oct, 2010 [facility] [place] [facility] [address] [facility]] [id number] [place] [address]- 9366 Oct, [facility] [place] [facility] [address] [facility]NOTE 3] [id number] [place] [address]- 5820 18 Oct, 2010 [facility] [place] [facility] [address] [id number] [place] [address]- 4618 16 Oct, 2010 [facility] [place] [facility] [address] [id number] [place] [address]- 5260 11 Sep, 2010 [facility] [place] [facility] [address] [id number] [place] [address]- 3124 April, [facility] [place] [facility] [address] [id number] [place] [address]- 3809 29 Nov, 2009 [facility] [place] [facility] [address] [facility]] [id number] [place] [address]- 2753 24 Nov, 2009 [facility] [place] [facility] [address] [id number], [place] [address]- 9491 Nov, [facility] [address] [id number], [place] [address]- 2084 Nov, [facility] [address] [facility]NOTE 3] [id number], [place] [address]- 9491 Nov, [facility] [address] [id number] 9412 Oct, [facility] [address] [id number], [place] [address]- 8555 Oct, [facility] [id number], [place] [address]- 5038 Sep, [facility] [address] [id number], [place] [address]- 7924 Jan, IMMUNIZATIONS No Known Immunizations SOCIAL HISTORY [...] Medical History Depression Medical History At [facility] 04/2016 Started on Eliquis Medical History Anemia 04/2016 postsurgical hip fx Surgical History right hip replacement w/ Dr. Bruce 2011 Surgical History triple bypass surgery 2003 Surgical History S/P left hip IM Nail (Intertrechanteric hip fx) 04/28/16 Hospitalization History surgeries Hospitalization History Hypertension Hospitalization History ER for a concussion 11/24/15 Hospitalization History Intertrechanteric hip fx 04/27/16 Hospitalization History [facility] (inpatient [facility] 2 times) Hx of 3 inpatient psych treatments in past in [place] oct 2016 [facility]ization [facility] 2016
[2019-02-11 14:36] LABS: SODIUM 113 MMOL/L (135-145)
--- OUTSIDE RECORDS SUMMARY | 2019-02-11 14:36 | XMS REPORT ---
Author Author WOLF AGUIRRE [facility] Address [address] [place] [address] Care Team Providers Care User Experience Manager Name Role Phone WOLF AGUIRRE Unavailable PROBLEMS Type Condition ICD9-CM Code JHC09-AA Code Onset Dates Condition Status SNOMED Code Problem Sundowning F05 Active 957276258 Problem Constipation, unspecified constipation type K59.00 Active 38670014 Problem Reactive depression F32.9 Active 50632441 Problem Vascular dementia with behavior disturbance F01.51 Active 510068053065112 Problem Insomnia, unspecified type G47.00 Active 394681189 Problem Generalized anxiety disorder F41.1 Active 00349287 Problem Other chronic pain G89.29 Active 89490967 Problem Severe episode of recurrent major depressive disorder, without psychotic features F33.2 Active 15524218 Problem Slow transit constipation K59.01 Active 31277175 Problem 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 Active 767031460 Problem Obsessive thinking F42.8 Active 67370794 Problem Failure to thrive in adult R62.7 Active 125940631 Problem Dysthymic disorder F34.1 Active 54253586 Problem Hypertension I10 Active 88002395 Problem Mood disorder F39 Active 54663453 Problem Irritable bowel syndrome with diarrhea K58.0 Active 704122717 Problem Oropharyngeal dysphagia R13.12 Active 50627726 Problem 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 Active 93679098 Problem Other chronic pain G89.29 Active 17061974 Problem Primary insomnia F51.01 Active 4955203 Problem Poor appetite R63.0 Active 37335364 Problem Atherosclerotic heart disease of [place] 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 Active 568995419578065 Problem Iron deficiency anemia secondary to inadequate dietary iron intake D50.8 Active 128094214 Problem Coarse tremors G25.2 Active 83072118 Problem Gastroesophageal reflux disease without esophagitis K21.9 Active 295799441 Problem Essential hypertension I10 Active 31397487 ALLERGIES No Information ENCOUNTERS Encounter Location Date Diagnosis [facility] [address] [address] Sep, [facility] [id number] [place] [address] 92865- 7584 Sep, [facility] [id number] [place] [address] 15471- 6588 Aug, [facility] [id number] [place] [address] 48059- 3062 Aug, [facility] [id number] [place] [address] 86030- 2568 Aug, Positive urine drug screen R82.5 [facility] [address] [place] [id number] Aug, [facility] [id number] [place] [address] 95415- 5176 Aug, [facility] [id number] [place] [address] 89090- 9131 Aug, [facility] [id number] [place] [address] 73772- 3735 17 Aug, 2018 Irritable bowel syndrome with diarrhea K58.0 [facility] [id number] [place] [address] 80400- 4363 Aug, [facility] [id number] [place] [address] 11809- 6452 Aug, Obsessive thinking F42.8 ; Insomnia, unspecified type G47.00 and Other chronic pain G89.29 [facility] [address] [place] [id number] Aug, Obsessive thinking F42.8 ; Irritable bowel syndrome with diarrhea K58.0 ; Pain in right foot M79.671 ; Pain of left foot M79.672 and Gastroesophageal reflux disease without esophagitis K21.9 [facility] [id number] [place] [address] 64250- 9852 Aug, [facility] [address] [address] 2734 Jul, [facility] [address] [address] 6826 Jun, [facility] [address] [address] 7641 Jun, [facility] [address] [place] [id number] Jun, Left lower quadrant pain R10.32 and Left leg pain M79.605 [facility] [id number] [place] [address] 45478- 5947 Jun, [facility] [address] [place] [id number] Jun, Pain in left hip M25.552 ; Pain in right hip M25.551 and Primary insomnia F51.01 [facility] [id number] [place] [address] 72675- 2506 Jun, [facility] [address] [place] [id number] May, [facility] [address] [address] 8653 May, [facility] [id number] [place] [address] 32918- 7329 May, [facility] [address] [place] [id number] May, Mood disorder F39 [facility] [address] [address] 0823 May, [facility] [id number] [place] [address] 26890- 5102 April, [facility] [address] [place] [id number] April, Generalized anxiety disorder F41.1 ; Obsessive thinking F42.8 and Insomnia , unspecified type G47.00 [facility] [address] [address]- 1426 April, [facility] [id number] [place] [address] 82574- 9031 April, Rash of face R21 [facility] [address] [address] 4072 Mar, [facility] [id number] [place] [address] 97619- 2243 Mar, [facility] [id number] [place] [address] 82841- 0743 Mar, [facility] [id number] [place] [address] 30733- 4501 Jan, [facility] [id number] [place] [address] 56039- 4027 Jan, [facility] [address] [place] [id number] Jan, Constipation, unspecified constipation type K59.00 and Other chronic pain G89.29 [facility] [id number] [place] [address] 65873- 2761 Jan, [facility] [address] [place] [id number] Jan, Obsessive thinking F42.8 and Coarse tremors G25.2 [facility] [id number] [place] [phone] Jan, [facility] [id number] [id number] Jan, [facility] [address] [place] [id number] Jan, Generalized anxiety disorder F41.1 ; Obsessive thinking F42.8 ; Callus of foot L84 and 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 [facility] [address] [address]- 9940 Dec, Generalized anxiety disorder F41.1 and Severe episode of recurrent major depressive disorder, without psychotic features F33.2 [facility] [address] [address]- 8763 Nov, [facility] [id number] [place] [address] 88614- 7143 Nov, [facility] [address] [place] [id number] Nov, Oropharyngeal dysphagia R13.12 ; Generalized anxiety disorder F41.1 and 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 [facility] [id number] [place] [address] 59440- 5879 Nov, [facility] [id number] [place] [address] [id number] Nov, [facility] [id number] [place] [address] 96286- 3017 Nov, [facility] [id number] [place] [address] 85159- 0451 Nov, [facility] [id number] [place] [address] 14351- 4164 Oct, Constipation, unspecified constipation type K59.00 and Mood disorder F39 [facility] [address] [address]- 0867 Oct, [facility] [id number] [place] [address] [id number] Sep, [facility] [id number] [place] [address] [id number] Sep, [facility] [id number] [place] [address] [phone] Sep, [facility] [id number] [place] [address] [id number] Sep, [facility] [address] [place] [id number] Sep, Generalized abdominal pain R10.84 [facility] [id number] [address]- 0190 Sep, [facility] [id number] [id number] Sep, Generalized anxiety disorder F41.1 and Primary insomnia F51.01 [facility] [id number] [place] [id number] Aug, [facility] [id number] [id number] Aug, Generalized anxiety disorder F41.1 [facility] [id number] [address] 2312 Jul, [facility] [address] [place] [id number] Jul, Obsessive thinking F42.8 [facility] [address] [address]- 7119 Jul, Generalized anxiety disorder F41.1 and Irritable bowel syndrome with diarrhea K58.0 [facility] [id number] [place] [id number] Jul, Generalized anxiety disorder F41.1 [facility] [id number] [place] [address] [id number] Jun, Generalized anxiety disorder F41.1 [facility] [id number] [address]- 4152 May, [facility] [address] [place] [id number] May, Generalized anxiety disorder F41.1 ; Irritable bowel syndrome with diarrhea K58.0 and Coarse tremors G25.2 [facility] [address] [address]- 4099 April, [facility] [address] [address]- 6985 April, [facility] [address] [address]- 7356 April, [facility] [address] [address]- 5991 Mar, [facility] [address] [place] [id number] Mar, Severe episode of recurrent major depressive disorder, without psychotic features F33.2 and Pain in left hip M25.552 [facility] [id number] [place] [address] 54251- 5077 Mar, [facility] [id number] [place] [address] 39088- 3035 Mar, [facility] [id number] [place] [address] 14186- 3583 Mar, [facility] [id number] [place] [address] 10147- 4753 Mar, Pain in right hip M25.551 and Self-care deficit in patient living alone R46.89 [facility] [id number] [place] [address] 73047 -2203 Jan, Other chronic pain G89.29 ; Pain in left hip M25.552 and Slow transit constipation K59.01 [facility] [id number] [place] [address] 81886- 2544 Jan, [facility] [id number] [place] [address] 31002- 6342 Dec, Other depression F32.89 ; Constipation, unspecified constipation type K59.00 and Insomnia, unspecified type G47.00 [facility] [id number] [place] [address] 12094- 9729 Nov, Reactive depression F32.9 ; Chronic idiopathic constipation K59.04 ; Generalized anxiety disorder F41.1 ; Coarse tremors G25.2 ; Gastroesophageal reflux disease without esophagitis K21.9 ; Dysthymic disorder F34.1 ; Vitamin deficiency, unspecified E56.9 and Primary insomnia F51.01 [facility] [id number] [place] [address] 67542- 6200 Nov, [facility] [id number] [place] [address] 21363- 7626 Nov, [facility] [id number] [place] [address] 00864- 4974 Nov, [facility] [id number] [place] [address] 14881- 0711 Nov, Reactive depression F32.9 ; Essential hypertension I10 ; Generalized anxiety disorder F41.1 ; Atherosclerotic heart disease of [place] 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 ; Pain in right hip M25.551 ; Other chronic pain G89.29 ; Chronic idiopathic constipation K59.04 ; Primary insomnia F51.01 ; Coarse tremors G25.2 ; Gastroesophageal reflux disease without esophagitis K21.9 ; Iron deficiency anemia secondary to inadequate dietary iron intake D50.8 and Vitamin deficiency, unspecified E56.9 [facility] [id number] [place] [address] 82450- 8432 Oct, [facility] [id number] [place] [address] 25363- 4223 Oct, [facility] [id number] [place] [address] 88781- 7514 Oct, [facility] [id number] [place] [address] 27423- 1404 16 Oct, 2016 Generalized anxiety disorder F41.1 ; Poor appetite R63.0 ; Dehydration E86.0 and Failure to thrive in adult R62.7 [facility] [id number] [place] [address] 23786- 1575 07 Oct, 2016 Generalized anxiety disorder F41.1 and Failure to thrive in adult R62.7 [facility] [id number] [place] [address] 02377- 1808 Oct, [facility] [id number] [place] [address] 97352- 6614 Oct, [facility] [id number] [place] [address] 78190 -1567 Sep, Vaginal discharge N89.8 and Acute cystitis with hematuria N30.01 [facility] [id number] [place] [address] 94986- 1099 Sep, [facility] [address] 86511- 6188 Sep, [facility] [address] 76523- 1608 Sep, Dysthymic disorder F34.1 ; Acute vaginitis N76.0 ; Dysuria R30.0 and Vaginal yeast infection B37.3 [facility] [address] 53114- 8661 Aug, [place] [address] 56501- 7184 Aug, [facility] [address] 20099 -5089 Aug, Foul smelling urine R82.90 ; Rapid heart rate R00.0 and Flatulence R14.3 [facility] [id number] [place] [address] 31262- 7831 Aug, [facility] [id number] [place] [address] 86424- 1218 Jul, Constipation, unspecified constipation type K59.00 ; Weak R53.1 ; Poor appetite R63.0 ; Coronary artery disease involving [place] heart without angina pectoris, unspecified vessel or lesion type I25.10 ; Fatigue, unspecified type R53.83 ; Urinary incontinence, unspecified type R32 and Insomnia, unspecified type G47.00 [facility] [id number] [place] [address] 67290- 6085 Jul, [facility] [id number] [place] [address] 14012- 8819 Jun, Dysuria R30.0 [facility] [id number] [place] [address] 43290- 9474 Jun, [facility] [id number] [place] [address] 17927- 1334 Jun, Urinary tract infection, site not specified N39.0 ; Acute vaginitis N76.0 and Diarrhea, unspecified type R19.7 [facility] [id number] [place] [address] 74261- 2710 May, [facility] [id number] [place] [address] 82744- 4700 April, [facility] [address] [id number] April, Encounter for dental examination Z01.20 [facility] [id number] [place] [address] 13871- 5228 April, [facility] [id number] [place] [address] 92000- 2982 April, Tremor R25.1 and Episodic tension-type headache, not intractable G44.219 [facility] [id number] [place] [address] 80280- 1882 Mar, [facility] [id number] [place] [address] 10094- 2939 Jan, Mood disorder F39 [facility] [id number] [place] [address] 22530 -4555 Jan, [facility] [id number] [place] [address] 03970- 0286 Jan, [facility] [id number] [place] [address] 18224- 5617 Jan, [facility] [id number] [place] [address] 12224- 0762 Jan, [facility] [id number] [place] [address] 06760- 6562 Jan, [facility] [address] [place] [address] 08132- 9930 03 Jan, 2016 [facility] [id number] [place] [address] 42857 -4702 Dec, Acute diarrhea R19.7 [facility] [id number] [place] [address] 56889- 9941 Dec, [facility] [id number] [place] [address] 03491- 8363 Dec, [facility] [id number] [place] [address] 23077- 9273 Dec, [facility] [id number] [place] [address] 60050 -0807 Dec, N&V (nausea and vomiting) R11.2 [facility] [id number] [place] [address] 62433- 1368 Dec, Generalized anxiety disorder F41.1 [facility] [id number] [place] [address] 98296- 2767 Dec, Generalized anxiety disorder F41.1 [facility] [id number] [place] [address] 86473- 6448 Nov, Post concussion syndrome F07.81 [facility] [id number] [place] [address] 33293- 5926 Nov, Generalized anxiety disorder F41.1 [facility] [id number] [place] [address] 83484- 2763 Nov, [facility] [id number] [place] [address] 65299- 5057 Nov, Generalized anxiety disorder F41.1 [facility] [address] [place] [address] [id number] Oct, Dental caries K02.9 [facility] [id number] [place] [address] 05441- 5536 Oct, [facility] [id number] [id number] Oct, Dental examination Z01.20 [facility] [address] [place] [address] [id number] [phone] Oct, 2015 Encounter for dental examination Z01.20 [facility] [id number] [place] [address] 00270- 7963 Oct, CAD (coronary artery disease) I25.10 [facility] [id number] [place] [address] 16909- 0040 Sep, Generalized anxiety disorder F41.1 [facility] [id number] [place] [address] 07024- 5498 Sep, [facility] [id number] [place] [address] 87957- 7097 Sep, Rash and other nonspecific skin eruption R21 and Yeast vaginitis B37.3 [facility] [id number] [place] [address] 72411- 7924 Sep, Generalized anxiety disorder F41.1 [facility] [id number] [place] [address] 08222- 8924 Aug, Insect bites 919.4 and Hemorrhoids 455.6 [facility] [id number] [place] [address] 12869- 0638 Aug, Generalized anxiety disorder 300.02 [facility] [id number] [place] [address] 49629- 1842 Aug, [facility] [id number] [place] [address] 69818- 5254 Aug, [facility] [id number] [place] [address] 71093- 8790 Aug, Generalized anxiety disorder 300.02 ; No condition on [place] II V71.09 ; Heart problem 429.9 and Hypertension 401.9 [facility] [place] [address] [address]- 8619 Aug, [facility] [id number] [place] [address] 41019- 9014 Jul, [facility] [address] [address]- 9132 Jul, [facility] [address] [place] [address] 71792- 4996 Jul, [facility] [address] [place] [address] 27120- 4398 Jul, [facility] [id number] [place] [address] 48995- 9050 Jul, Rash 782.1 [facility] [id number] [place] [address] 48724- 5548 Jul, UTI (urinary tract infection) 599.0 [facility] [address] [place] [address] 00995- 2685 Jul, [facility] [address] [place] [address] 61952- 6212 Jun, Dysthymia 300.4 and Anxiety 300.00 [facility] [address] [address]- 6472 Jun, 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 [facility] [id number] [place] [address] 71701- 1666 May, [facility] [address] [address]- 5021 May, [facility] [id number] [place] [address] 87528- 0574 May, Unspecified breast screening V76.10 [facility] [address] [place] [address] [id number] May, Dental examination V72.2 [facility] [id number] [place] [address] 76240 2546 April, [facility] [address] [id number] [place] [address] 2546 April, [facility] [address] [id number] [id number] April, Dental examination V72.2 [facility] [address] [id number] [id number] April, Dental examination V72.2 [facility] [address] [id number] [place] [address] Mar, [facility] [address] [id number] [place] [address] Mar, [facility] [address] [id number] [place] [address] Jan, [facility] [address] [id number] [place] [address] 25 Jan, 2015 [facility] [address] [id number] [place] [address] 18 Jan, 2015 [facility] [address] [id number] [place] [address] 18 Jan, 2015 [facility] [address] [id number] [place] [address] 16 Jan, 2015 [facility] [address] [id number] [place] [address] 16 Jan, 2015 [facility] [place] [facility] [address] [id number] [address] 13 Jan, 2015 [facility] [place] [facility] [address] [id number] [place] [address] 13 Jan, 2015 [facility] [place] [facility] [address] [id number] [place] [address] 11 Jan, 2015 [facility] [place] [facility] [address] [id number] [place] [address] Jan, [facility] [place] [facility] [address] [id number] [place] [address] Jan, [facility] [facility] [address] [id number] [place] [address] Jan, [facility] [place] [facility] [address] [id number] [place] [address] 10[address] Jan, [facility] [place] [facility] [address] [id number] [place] [address] 89[address] Jan, [facility] [place] [facility] [address] [id number] [place] [address] 8364 Jan, [facility] [place] [facility] [address] [id number] [place] [address] 2686 Jan, [facility] [place] [facility] [address] [id number] [place] [address]- 0977 Jan, [facility] [place] [facility] [address] [id number] [place] [address]- 4877 Jan, [facility] [place] [facility] [address] [id number] [place] [address]- 9085 Jan, [facility] [place] [facility] [address] [id number] [place] [address]- 2866 Jan, [facility] [place] [facility] [address] [id number] [place] [address]- 9657 Jan, [facility] [place] [facility] [address] [id number] [place] [address]- 4947 Jan, [facility] [place] [facility] [address] [id number] [place] [address]- 2444 Dec, [facility] [place] [facility] [address] [id number] [place] [address]- 1067 Dec, [facility] [place] [facility] [address] [id number] [place] [address]- 3880 Dec, [facility] [place] [facility] [address] [id number] [place] [address]- 3024 Dec, [facility] [address] [id number] [place] [address]- 4468 Nov, [facility] [address] [id number] [place] [address]- 2699 Nov, [facility] [address] [id number] [place] [address]- 9746 Nov, [facility] [address] [id number] [place] [address]- 4693 Nov, [facility] [address] [id number] [place] [address]- 9196 Nov, [facility] [address] [id number] [place] [address]- 0517 Nov, [facility] [address] [id number] [place] [address]- 5836 Nov, [facility] [address] [id number] [place] [address]- 6530 Oct, [facility] [address] [id number] [place] [address]- 1601 Oct, [facility] [address] [id number] [place] [address]- 9512 Oct, [facility] [address] [id number] [place] [address]- 9520 Oct, [facility] [address] [id number] [place] [address]- 7102 Oct, [facility] [address] [id number] [place] [address]- 3415 Oct, [facility] [address] [id number] [place] [address]- 2546 Oct, [facility] [address] [id number] [place] [address]- 5394 Oct, [facility] [address] [id number] [place] [address] Oct, [facility] [address] [id number] [place] [address]- 3486 Oct, [facility] [address] [id number] [place] [address] Oct, [facility] [address] [id number] [place] [address]- 2465 Oct, [facility] [address] [id number] [place] [address]- 2027 Sep, [facility] [address] [id number] [place] [address]- 4777 Sep, [facility] [address] [id number] [place] [address]- 3302 Sep, [facility] [facility] [address] [id number] [place] [address]- 5714 Sep, [facility] [address] [id number] [place] [address]- 2699 Jul, [facility] [address] [id number] [place] [address]- 1119 Jul, [facility] [address] [id number] [place] [address]- 2106 Jul, [facility] [address] [id number] [place] [address]- 2595 Jul, [facility] [address] [id number] [place] [address] 1969 Jun, [facility] [address] [id number] [place] [address]- 9003 Jun, [facility] [address] [id number] [place] [address]- 7324 Jun, [facility] [address] [id number] [place] [address]- 68[address] Jun, [facility] [address] [id number] [place] [address]- 2951 May, [facility] [address] [id number] [place] [address]- 3703 May, [facility] [address] [id number] [place] [address]- 9029 April, [facility] [address] [id number] [place] [address]- 0050 April, [facility] [address] [id number] [place] [address]- 0523 April, [facility] [address] [id number] [place] [address]- 5128 April, [facility] [address] [id number] [place] [address]- 5855 April, [facility] [address] [id number] [place] [address]- 6302 April, [facility] [address] [id number] [place] [address]- 4650 April, [facility] [address] [id number] [place] [address]- 2433 April, [facility] [address] [id number] [place] [address]- 9104 April, [facility] [address] [id number] [place] [address]- 7796 Mar, [facility] [address] [id number] [place] [address]- 7526 Mar, [facility] [address] [id number] [place] [address]- 4619 Mar, [facility] [address] [id number] [place] [address]- 6108 Mar, [facility] [address] [id number] [place] [address]- 8036 Jan, [facility] [address] [id number] [place] [address]- 9551 Jan, [facility] [address] [id number] [place] [address]- 9466 Jan, [facility] [address] [id number] [place] [address]- 2046 Jan, [facility] [address] [id number] [place] [address]- 9270 Jan, [facility] [address] [id number] [place] [address]- 6859 Jan, [facility] [address] [id number] [place] [address]- 7612 Jan, [facility] [address] [id number] [place] [address]- 0237 Jan, [facility] [address] [id number] [place] [address]- 3777 Jan, [facility] [address] [id number] [place] [address]- 8266 Jan, [facility] [address] [id number] [place] [address]- 0588 Jan, [facility] [address] [id number] [place] [address]- 4555 Jan, [facility] [address] [id number] [place] [address]- 2674 Dec, [facility] [address] [id number] [place] [address]- 3490 Dec, [facility] [address] [id number] [place] [address]- 4998 Dec, [facility] [address] [id number] [place] [address]- 2546 Dec, [facility] [address] [id number] [place] [address]- 7194 Nov, [facility] [address] [id number] [place] [address]- 4304 Nov, [facility] [address] [id number] [place]75 Nov, [facility] [address] [id number] [place]38 Nov, [facility] [address] [id number] [place] [address] Oct, [facility] [address] [id number] [place] Oct, [facility] [address] [id number] [place] [address] Sep, [facility] [address] [id number] [place] [address]- 5095 Sep, [facility] [address] [id number] [place] [address]- 5402 Jul, [facility] [address] [id number] [place] [address]- 4147 Jul, [facility] [address] [id number] [place] [address]- 1229 Jun, [facility] [address] [id number] [place] [address]- 6366 Jun, [facility] [address] [id number] [place] [address]- 5144 Jun, [facility] [address] [id number] [place] [address]- 6225 May, [facility] [address] [id number] [place] [address]- 5474 May, [facility] [address] [id number] [place] [address]- 8828 17 May, 2013 [facility] [address] [id number] [place] [address]- 4857 May, [facility] [address] [id number] [place] [address]- 4076 May, [facility] [address] [id number] [place] [address]- 0526 April, [facility] [address] [id number] [place] [address]- 1478 April, [facility] [address] [id number] [place] [address]- 8739 April, [facility] [address] [id number] [place] [address]- 2486 April, [facility] [address] [id number] [place] [address]- 1702 April, [facility] [address] [id number] [place] [address]- 2402 April, [facility] [address] [id number] [place] [address]- 9403 Mar, [facility] [address] [id number] [place] [address]- 4623 Mar, [facility] [address] [id number] [place] [address]- 0803 Jan, [facility] [address] [id number] [place] [address]- 9186 Jan, [facility] [address] [id number] [place] [address]- 6834 05 Jan, 2013 [facility] [address] [id number] [place] [address]- 2546 05 Jan, 2013 [facility] [address] [id number] [place] [address]169 Jan, [facility] [address] [id number] [place] [address]- 8066 12 Jan, 2012 [facility] [address] [id number] [place] [address]- 5276 05 Jan, 2012 [facility] [address] [id number] [place] [address]36 04 Jan, 2012 [facility] [place] [facility] [address] [id number] [place] [address]- 7777 Jan, 2012 [facility] [address] [id number] [place] [address]- 2860 Jan, [facility] [address] [id number] [place] [address]- 4036 Jan, [facility] [address] [id number] [place] [address]- 9958 Dec, [facility] [address] [id number] [place] [address]- 7008 Nov, [facility] [address] [id number] [place] [address]- 2178 Nov, [facility] [facility] [address] [id number] [place] [address]- 9188 Nov, [facility] [address] [id number] [place] [address]- 2672 Nov, [facility] [address] [id number] [place] [address]- 8405 Nov, [facility] [address] [id number] [place] [address]- 1224 Nov, [facility] [address] [facility] [id number] [place] [address]- 5679 Nov, [facility] [address] [facility] [id number] [place] [address]- 0738 Nov, [facility] [address] [id number] [place] [address]- 3697 Nov, [facility] [address] [id number] [place] [address]- 5368 Nov, [facility] [address] [id number] [place] 8078 Nov, [facility] [address] [id number] [place] [address]- 9215 Nov, [facility] [address] [id number] [place] [address]- 9833 Nov, [facility] [address] [facility] [id number] [place] [address], [place] [address]- 6684 Oct, [facility] [address] [facility] [id number] [place] 7933 Oct, [facility] [id number] [place] [address]- 6369 Oct, [facility] [address] [facility] [id number] [place] [address]- 7755 Sep, [facility] [address] [facility] [id number] [place] [address]- 8047 Sep, [facility] [address] [facility] [id number] [place] [address]- 8198 Sep, [facility] [address] [facility] [id number] [place] [address]- 9840 Sep, [facility] [place] [facility] [address] [facility] [id number] [place] [address]- 9611 Aug, [facility] [place] [facility] [address] [id number] [place] [address]- 7013 Aug, [facility] [place] [facility] [address] [facility] [id number] [place] [address]- 1131 Jul, [facility] [place] [facility] [address] [facility] [id number] [place] [address]- 3834 May, [facility] [address] [id number] [place] [address]- 3524 14 May, 2012 [facility] [place] [facility] [address] [id number] [place] [address]- 1464 14 May, 2012 [facility] [place] [facility] [address] [id number] [place] [address]- 9840 April, [facility] [place] [facility] [address] [id number] [place] [address]- 3616 Mar, [facility] [place] [facility] [address] [id number] [place] [address]- 1367 Mar, [facility] [place] [facility] [address] [id number] [place] [address]- 6600 Mar, [facility] [place] [facility] [address] [id number] [place] [address]- 0209 Jan, [facility] [place] [facility] [address] [id number] [place] [address]- 5534 Jan, [facility] [place] [facility] [address] [id number] [place] [address]- 6669 Jan, [facility] [place] [facility] [address] [id number] [place] [address]- 6132 Dec, [facility] [place] [facility] [address] [id number] [place] [address]- 4707 Dec, [facility] [place] [facility] [address] [id number] [place] [address]- 1857 Dec, [facility] [place] [facility] [address] [id number] [place] [address]- 3580 Dec, [facility] [place] [facility] [address] [id number] [place] [address]- 3596 Nov, [facility] [place] [facility] [address] [id number] [place] [address]- 0396 Nov, [facility] [place] [facility] [address] [id number] [place] [address]- 3746 03 Nov, 2011 [facility] [place] [facility] [address] [id number] [place] [address]- 3955 03 Oct, 2011 [facility] [place] [facility] [address] [id number] [place] [address]- 9697 31 Sep, 2011 [facility] [place] [facility] [address] [facility] [id number] [place] [address]- 3276 26 Sep, 2011 [facility] [place] [facility] [address] [id number] [place] [address]- 5924 13 Sep, 2011 [facility] [place] [facility] [address] [id number] [place] [address]- 9317 15 Nov, 2010 [facility] [place] [facility] [address] [id number] [place] [address]- 8516 23 Oct, 2010 [facility] [place] [facility] [address] [facility] [id number] [place] [address]- 6677 Oct, [facility] [place] [facility] [address] [facility] [facility] [id number] [place] [address]- 0689 18 Oct, 2010 [facility] [place] [facility] [address] [facility] [id number] [place] [address]- 8306 16 Oct, 2010 [facility] [place] [facility] [address] [facility] [id number] [place] [address]- 0055 11 Sep, 2010 [facility] [place] [facility] [address] [facility] [id number] [place] [address]- 6420 April, [facility] [place] [facility] [address] [id number] [place] [address]- 9054 29 Nov, 2009 [facility] [place] [facility] [address] [id number] [place] [address]- 9942 24 Nov, 2009 [facility] [place] [facility] [address] [facility] [id number] [place] [address]- 9450 22 Nov, 2009 [facility] [place] [facility] [address] [facility] [id number] [place] [address]- 0146 10 Nov, 2009 [facility] [place] [facility] [address] [facility] [id number] [place] [address]- 6236 Nov, [facility] [address] [facility] [id number] [place] [address] Oct, [facility] [address] [facility] [id number] [place] [address]- 6174 Oct, [facility] [address] [facility] [id number] [place] [address]- 1728 Sep, [facility] [address] [facility] [id number] [place] [address] Jan, IMMUNIZATIONS No Known Immunizations SOCIAL HISTORY Never Assessed REASON FOR VISIT DC Samira PLAN OF CARE VITAL SIGNS MEDICATIONS Unknown Medications RESULTS No Results PROCEDURES No Known procedures INSTRUCTIONS MEDICATIONS ADMINISTERED No Known Medications MEDICAL (GENERAL) HISTORY Type Description Date Medical History Hypertension Medical History Heart disease CABG X3 Stress test 07/2015 Medical History Gastric ulcer Medical History Hyperlipidemia Medical History Headache syndrome Medical History Psychiatric disorders-depression/racing thoughts Medical History Depression Medical History [facility] 04/2016 Started on Eliquis Medical History Anemia 04/2016 postsurgical hip fx Surgical History right hip replacement w/ Dr. Bruce 2011 Surgical History triple bypass surgery 2003 Surgical History S/P left hip IM Nail (Intertrechanteric hip fx) 04/28/16 Hospitalization History surgeries Hospitalization History Hypertension Hospitalization History ER for a concussion 11/24/15 Hospitalization History Intertrechanteric hip fx 04/27/16 Hospitalization History [facility] (inpatient [facility] 2 times) Hx of 3 inpatient psych treatments in past in [place] oct 2016 [facility] 2016
--- OUTSIDE RECORDS SUMMARY | 2019-02-11 14:37 | XMS REPORT ---
Author Author WOLF AGUIRRE [facility] Address [address] [place] [address] Care Team Providers Care Oak Tanner Name Role Phone WOLF AGUIRRE Unavailable PROBLEMS Type Condition ICD9-CM Code ZMS22-HA Code Onset Dates Condition Status SNOMED Code Problem Sundowning F05 Active 302490843 Problem Constipation, unspecified constipation type K59.00 Active 39757881 Problem Reactive depression F32.9 Active 93565020 Problem Vascular dementia with behavior disturbance F01.51 Active 424657474006067 Problem Insomnia, unspecified type G47.00 Active 429816012 Problem Generalized anxiety disorder F41.1 Active 43740731 Problem Other chronic pain G89.29 Active 93248068 Problem Severe episode of recurrent major depressive disorder, without psychotic features F33.2 Active 11829184 Problem Slow transit constipation K59.01 Active 80611793 Problem 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 Active 227498441 Problem Obsessive thinking F42.8 Active 12090757 Problem Failure to thrive in adult R62.7 Active 753718496 Problem Dysthymic disorder F34.1 Active 57048407 Problem Hypertension I10 Active 87187299 Problem Mood disorder F39 Active 55508355 Problem Irritable bowel syndrome with diarrhea K58.0 Active 653736205 Problem Oropharyngeal dysphagia R13.12 Active 58241000 Problem 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 Active 96126845 Problem Other chronic pain G89.29 Active 06929438 Problem Primary insomnia F51.01 Active 5844712 Problem Poor appetite R63.0 Active 78881675 Problem Atherosclerotic heart disease of [place] 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 Active 849148579560212 Problem Iron deficiency anemia secondary to inadequate dietary iron intake D50.8 Active 692032348 Problem Coarse tremors G25.2 Active 74797918 Problem Gastroesophageal reflux disease without esophagitis K21.9 Active 100227737 Problem Essential hypertension I10 Active 72453982 ALLERGIES No Information ENCOUNTERS Encounter Location Date Diagnosis [facility] [id number] [place] [address] 26644- 2054 Sep, [facility] [id number] [place] [address] 62021- 2936 Aug, [facility] [id number] [place] [address] 07753- 9571 Aug, [facility] [id number] [place] [address] 21753- 6651 Aug, Positive urine drug screen R82.5 [facility] [address] [id number] Aug, [facility] [id number] [place] [address] 11892- 5847 Aug, [facility] [id number] [place] [address] 50810- 4968 Aug, [facility] [id number] [place] [address] 45665- 8520 Aug, Irritable bowel syndrome with diarrhea K58.0 [facility] [id number] [place] [address] 02333- 8379 Aug, [facility] [id number] [place] [address] 74774- 1750 Aug, Obsessive thinking F42.8 ; Insomnia, unspecified type G47.00 and Other chronic pain G89.29 [facility] [address] [id number] Aug, Obsessive thinking F42.8 ; Irritable bowel syndrome with diarrhea K58.0 ; Pain in right foot M79.671 ; Pain of left foot M79.672 and Gastroesophageal reflux disease without esophagitis K21.9 [facility] [id number] [place] [address] 11504- 6397 Aug, [facility] [id number] [place] [address] 38711- 1288 Jul, [facility] [address] [address] 2357 Jun, [facility] [address] [address] 1598 Jun, [facility] [address] [id number] Jun, Left lower quadrant pain R10.32 and Left leg pain M79.605 [facility] [id number] [place] [address] 25626- 1751 Jun, [facility] [address] [id number] Jun, Pain in left hip M25.552 ; Pain in right hip M25.551 and Primary insomnia F51.01 [facility] [address] [address]- 0666 Jun, [facility] [address] [id number] May, [facility] [address] [address]- 9275 May, [facility] [address] [place] [address] 85760- 0476 May, [facility] [address] [place] [id number] May, Mood disorder F39 [facility] [address] [address]- 5990 May, [facility] [address] [address] 7269 April, [facility] [address] [id number] April, Generalized anxiety disorder F41.1 ; Obsessive thinking F42.8 and Insomnia , unspecified type G47.00 [facility] [address] [address] 5498 April, [facility] [id number] [place] [address] 10253- 5041 April, Rash of face R21 [facility] [id number] [place] [address] 57091- 9343 Mar, [facility] [id number] [place] [address] [id number]- 3693 Mar, [facility] [id number] [place] [address] 29957- 8674 Mar, [facility] [id number] [place] [address] 95761- 3179 Jan, [facility] [address] 98991- 5950 Jan, [facility] [address] [id number] Jan, Constipation, unspecified constipation type K59.00 and Other chronic pain G89.29 [facility] [id number] [place] [address] 83482- 1373 Jan, [facility] [address] [place] [id number] Jan, Obsessive thinking F42.8 and Coarse tremors G25.2 [facility] [id number] [place] [address] [id number] Jan, [facility] [id number] [place] [address] [id number] Jan, [facility] [address] [place] [id number] Jan, Generalized anxiety disorder F41.1 ; Obsessive thinking F42.8 ; Callus of foot L84 and 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 [facility] [id number] [place] [address] 89059- 3659 Dec, Generalized anxiety disorder F41.1 and Severe episode of recurrent major depressive disorder, without psychotic features F33.2 [facility] [id number] [place] [address] 00654- 1856 Nov, [facility] [address] 9809 Nov, [facility] [address] [id number] Nov, Oropharyngeal dysphagia R13.12 ; Generalized anxiety disorder F41.1 and 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 [facility] [address] 0176 Nov, [facility] [id number] [id number] Nov, [facility] [address] [place] [address] 44796- 8043 Nov, [facility] [address] 3648 Nov, [facility] [id number] [place] [address] 69266- 6745 Oct, Constipation, unspecified constipation type K59.00 and Mood disorder F39 [facility] [address]- 1321 Oct, [facility] [id number] [id number] Sep, [facility] [place] [id number] [id number] Sep, [facility] [place] [facility] [id number] [place] [address] [id number] Sep, [facility] [place] [id number] [id number] Sep, [facility] [address] [id number] Sep, Generalized abdominal pain R10.84 [facility] [id number] [address]- 5266 Sep, [facility] [id number] [place] [address] [id number] Sep, Generalized anxiety disorder F41.1 and Primary insomnia F51.01 [facility] [id number] [id number] Aug, [facility] [id number] [address] Aug, Generalized anxiety disorder F41.1 [facility] [address] [address]- 5986 Jul, [facility] [address] [id number] Jul, Obsessive thinking F42.8 [facility] [address] [address]- 1786 Jul, Generalized anxiety disorder F41.1 and Irritable bowel syndrome with diarrhea K58.0 [facility] [id number] [address] Jul, Generalized anxiety disorder F41.1 [facility] [id number] [id number] Jun, Generalized anxiety disorder F41.1 [facility] [address] [address]- 7996 May, [facility] [address] [id number] May, Generalized anxiety disorder F41.1 ; Irritable bowel syndrome with diarrhea K58.0 and Coarse tremors G25.2 [facility] [id number] [address] 8842 April, [facility] [address], [place] [address]- 4743 April, [facility] [address] [address] 1876 April, [facility] [id number] [address]- 3493 Mar, [facility] [address] [id number] Mar, Severe episode of recurrent major depressive disorder, without psychotic features F33.2 and Pain in left hip M25.552 [facility] [address] [place] [address] 48710- 9154 Mar, [facility] [id number] [place] [address] 35473- 4740 Mar, [facility] [id number] [place] [address] 99311- 9016 Mar, [facility] [id number] [place] [address] 70820- 4222 Mar, Pain in right hip M25.551 and Self-care deficit in patient living alone R46.89 [facility] [id number] [place] [address] 67624 -2414 Jan, Other chronic pain G89.29 ; Pain in left hip M25.552 and Slow transit constipation K59.01 [facility] [id number] [place] [address] 57445- 8646 Jan, [facility] [id number] [place] [address] 21288- 5550 Dec, Other depression F32.89 ; Constipation, unspecified constipation type K59.00 and Insomnia, unspecified type G47.00 [facility] [id number] [place] [address] 46702- 6076 Nov, Reactive depression F32.9 ; Chronic idiopathic constipation K59.04 ; Generalized anxiety disorder F41.1 ; Coarse tremors G25.2 ; Gastroesophageal reflux disease without esophagitis K21.9 ; Dysthymic disorder F34.1 ; Vitamin deficiency, unspecified E56.9 and Primary insomnia F51.01 [facility] [id number] [place] [address] 29483- 3569 Nov, [facility] [address] 79542- 5453 Nov, [facility] [id number] [place] [address] 91337- 6357 Nov, [facility] [address] 05981- 8251 Nov, Reactive depression F32.9 ; Essential hypertension I10 ; Generalized anxiety disorder F41.1 ; Atherosclerotic heart disease of [place] 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 ; Pain in right hip M25.551 ; Other chronic pain G89.29 ; Chronic idiopathic constipation K59.04 ; Primary insomnia F51.01 ; Coarse tremors G25.2 ; Gastroesophageal reflux disease without esophagitis K21.9 ; Iron deficiency anemia secondary to inadequate dietary iron intake D50.8 and Vitamin deficiency, unspecified E56.9 [facility] [id number] [place] [address] 58420- 6732 Oct, [address] 69441- 5423 Oct, [facility] [id number] [place] [address] 25900- 6370 Oct, [address] 36868- 2124 16 Oct, 2016 Generalized anxiety disorder F41.1 ; Poor appetite R63.0 ; Dehydration E86.0 and Failure to thrive in adult R62.7 [place] [id number] [place] [address] 05779- 9091 07 Oct, 2016 Generalized anxiety disorder F41.1 and Failure to thrive in adult R62.7 [facility] [id number] [place] [address] 37417- 4385 Oct, [address] 00299- 8143 Oct, [facility] [id number] [place] [address] 93371 -2322 Sep, Vaginal discharge N89.8 and Acute cystitis with hematuria N30.01 [facility] [address], [place] [address]- 2704 Sep, [facility] [id number] [place] [address] 71978- 0459 Sep, [facility] [id number] [place] [address] 89222- 8070 Sep, Dysthymic disorder F34.1 ; Acute vaginitis N76.0 ; Dysuria R30.0 and Vaginal yeast infection B37.3 [facility] [id number] [place] [address] 33382- 8474 Aug, [facility] [address] 27979- 7943 Aug, [facility] [id number] [place] [address] 88496 -5806 Aug, Foul smelling urine R82.90 ; Rapid heart rate R00.0 and Flatulence R14.3 [facility] [id number] [place] [address] 92291- 2295 Aug, [facility] [id number] [place] [address] 03655- 4968 Jul, Constipation, unspecified constipation type K59.00 ; Weak R53.1 ; Poor appetite R63.0 ; Coronary artery disease involving [place] heart without angina pectoris, unspecified vessel or lesion type I25.10 ; Fatigue, unspecified type R53.83 ; Urinary incontinence, unspecified type R32 and Insomnia, unspecified type G47.00 [facility] [id number] [place] [address] 36387- 9324 Jul, [facility] [id number] [place] [address] 96178- 8830 Jun, Dysuria R30.0 [facility] [id number] [place] [address] 06700- 0506 Jun, [facility] [address], [place] [address]- 9288 Jun, Urinary tract infection, site not specified N39.0 ; Acute vaginitis N76.0 and Diarrhea, unspecified type R19.7 [facility] [address], [place] [address]- 2457 May, [facility] [id number] [place] [address] 51406- 0833 April, [facility] [id number] [place] [address] [id number] April, Encounter for dental examination Z01.20 [facility] [id number] [place] [address] 46263- 8191 April, [facility] [id number] [place] [address] 47538- 3211 April, Tremor R25.1 and Episodic tension-type headache, not intractable G44.219 [facility] [id number] [place] [address] 64939- 8280 Mar, [facility] [id number] [place] [address] 32573- 1566 Jan, Mood disorder F39 [facility] [address] [place] [address] 70657 -0980 Jan, [facility] [address] [place] [address] 34518- 6697 Jan, [facility] [id number] [place] [address] 00692- 4044 Jan, [facility] [id number] [place] [address] 78549- 4779 Jan, [facility] [id number] [place] [address] 68325- 0160 Jan, [facility] [id number] [place] [address] 56581- 2238 Jan, [facility] [address] [place] [address] 68624 -1149 Dec, Acute diarrhea R19.7 [facility] [id number] [place] [address] 05917- 7402 Dec, [facility] [id number] [place] [address] 81609- 7582 Dec, [facility] [id number] [place] [address] 50956- 4274 Dec, [facility] [id number] [place] [address] 24000 -7660 Dec, N&V (nausea and vomiting) R11.2 [facility] [id number] [place] [address] 56307- 9965 Dec, Generalized anxiety disorder F41.1 [facility] [id number] [place] [address] 46344- 6321 Dec, Generalized anxiety disorder F41.1 [facility] [id number] [place] [address] 44680- 2749 Nov, Post concussion syndrome F07.81 [facility] [id number] [place] [address] 72841- 0813 Nov, Generalized anxiety disorder F41.1 [facility] [id number] [place] [address] 52839- 4135 Nov, [facility] [id number] [place] [address] 29584- 6702 Nov, Generalized anxiety disorder F41.1 [facility] [id number] [place] [address] [id number] Oct, Dental caries K02.9 [facility] [address] [place] [address] 62055- 9075 Oct, [facility] [id number] [place] [address] [id number] Oct, Dental examination Z01.20 [facility] [id number] [id number] Oct, Encounter for dental examination Z01.20 [facility] [address] [place] [address] 46776- 2806 09 Oct, 2015 CAD (coronary artery disease) I25.10 [facility] [id number] [place] [address] 34362- 2851 Sep, Generalized anxiety disorder F41.1 [facility] [id number] [place] [address] 29111- 8395 Sep, [facility] [id number] [place] [address] 49924- 3578 Sep, Rash and other nonspecific skin eruption R21 and Yeast vaginitis B37.3 [facility] [address] [place] [address] 99352- 9463 Sep, Generalized anxiety disorder F41.1 [facility] [id number] [place] [address] 24288- 7405 Aug, Insect bites 919.4 and Hemorrhoids 455.6 [facility] [address] [place] [address] 26345- 7958 Aug, Generalized anxiety disorder 300.02 [facility] [address] [place] [address] 36815- 4974 08 Aug, 2015 [facility] [id number] [place] [address] 25178- 9604 Aug, [facility] [id number] [place] [address] 89969- 5105 Aug, Generalized anxiety disorder 300.02 ; No condition on Ainsworth II V71.09 ; Heart problem 429.9 and Hypertension 401.9 [facility] [address] [place] [address] 49943- 8510 Aug, [facility] [address] [address]- 0568 Jul, [facility] [address] [place] [address] 42653- 3899 Jul, [facility] [address] [place] [address] 41816- 1390 Jul, [facility] [address] [place] [address] 40836- 4315 Jul, [facility] [id number] [place] [address] 29511- 9493 Jul, Rash 782.1 [facility] [id number] [place] [address] 05585- 6668 Jul, UTI (urinary tract infection) 599.0 [facility] [address] [place] [address] 16612- 3933 Jul, [facility] [id number] [place] [address] 97013- 5319 Jun, Dysthymia 300.4 and Anxiety 300.00 [facility] [id number] [place] [address] 32634- 4124 Jun, 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 [facility] [id number] [place] [address] 44838- 9483 May, [facility] [address] [place] [address] 99994- 5023 May, [facility] [address] [address]- 7522 May, Unspecified breast screening V76.10 [facility] [id number] [place] [address] [id number] May, Dental examination V72.2 [facility] [address] [address]- 5367 April, [facility] [id number] [place] [address] 28275 2546 April, [facility] [address] [id number] [id number] April, Dental examination V72.2 [facility] [address] [id number] [id number] April, Dental examination V72.2 [facility] [address] [id number] [place] [address]- 8106 14 Mar, 2015 [facility] [address] [id number] [place] [address] 2546 Mar, [facility] [address] [id number] [place] [address] 25 Jan, 2015 [facility] [address] [id number] [place] [address] 25 Jan, 2015 [facility] [address] [id number] [place] [address] 18 Jan, 2015 [facility] [address] [id number], [place] [address] 18 Jan, 2015 [facility] [address] [id number] [place] [address] 16 Jan, 2015 [facility] [address] [id number], [place] [address] 16 Jan, 2015 [facility] [address] [id number], [place] [address] 13 Jan, 2015 [facility] [address] [id number], [place] [address] 13 Jan, 2015 [facility] [address] [id number] [place] [address] 11 Jan, 2015 [facility] [address] [id number] [place] [address] 11 Jan, 2015 [facility] [address] [id number], [place] [address] Jan, [facility] [place] [facility] [address] [id number] [place] [address] Jan, [facility] [place] [facility] [address] [id number] [place] [address] Jan, [facility] [place] [facility] [address] [id number] [place] [address] Jan, [facility] [place] [facility] [address] [id number] [place] [address] Jan, [facility] [place] [facility] [address] [id number] [place] [address] Jan, [facility] [place] [facility] [address] [id number] [place] [address] Jan, [facility] [place] [facility] [address] [id number] [place] [address] Jan, [facility] [place] [facility] [address] [id number] [place] [address] Jan, [facility] [place] [facility] [address] [id number] [place] [address] Jan, [facility] [place] [facility] [address] [id number] [place] [address] Jan, [facility] [place] [facility] [address] [id number] [place] [address] Jan, [facility] [place] [facility] [address] [address] [id number] [place] [address] Dec, [facility] [place] [facility] [address] [id number] [place] [address] Dec, [facility] [place] [facility] [address] [id number] [place] [address] 69[address] Dec, [facility] [place] [facility] [address] [id number] [place] [address] 8879 Dec, [facility] [place] [facility] [address] [id number] [place] [address] 4081 Nov, [facility] [place] [facility] [address] [id number] [place] [address] 0917 Nov, [facility] [place] [facility] [address] [id number] [place] [address] 3230 Nov, [facility] [place] [facility] [address] [id number] [place] [address] 4270 Nov, [facility] [place] [facility] [address] [id number] [place] [address] 6339 Nov, [facility] [place] [facility] [address] [id number] [place] [address] 6406 Nov, [facility] [place] [facility] [address] [id number] [place] [address] 3221 Nov, [facility] [place] [facility] [address] [id number] [place] [address] 0830 Oct, [facility] [place] [facility] [address] [id number] [place] [address] 7324 Oct, [facility] [place] [facility] [address] [id number] [place] [address] 9808 Oct, [facility] [place] [facility] [address] [id number] [place] [address] 9932 Oct, [facility] [place] [facility] [address] [id number] [place] [address]- 8343 Oct, [facility] [place] [facility] [address] [id number] [place] [address]- 5656 Oct, [facility] [place] [facility] [address] [id number] [place] [address] Oct, [facility] [place] [facility] [address] [id number] [place] [address]- 2673 Oct, [facility] [place] [facility] [address] [id number] [place] [address]- 0977 Oct, [facility] [place] [facility] [address] [id number] [place] [address]- 6179 Oct, [facility] [place] [facility] [address] [id number] [place] [address]- 6058 Oct, [facility] [place] [facility] [address] [id number] [place] [address] Oct, [facility] [place] [facility] [address] [id number] [place] [address]- 8588 Sep, [facility] [place] [facility] [address] [id number] [place] [address]- 7716 Sep, [facility] [place] [facility] [address] [id number] [place] [address]- 4839 Sep, [facility] [place] [facility] [address] [id number] [place] [address]- 0768 Sep, [facility] [place] [facility] [address] [id number] [place] [address]- 3392 Jul, [facility] [place] [facility] [address] [id number] [place] [address]- 7180 Jul, [facility] [place] [facility] [address] [id number] [place] [address]- 6253 Jul, [facility] [place] [facility] [address] [id number] [place] [address]- 1646 Jul, [facility] [place] [facility] [address] [id number], [place] [address] 9[address] Jun, [facility] [place] [facility] [address] [id number] [place] [address]- 0513 Jun, [facility] [place] [facility] [address] [id number] [place] [address]- 3272 Jun, [facility] [place] [facility] [address] [id number] [place] [address] Jun, [facility] [place] [facility] [address] [id number], [place] [address] May, [facility] [address] [id number] [place] [address]- 7907 May, [facility] [place] [facility] [address] [id number] [place] [address] 7500 April, [facility] [place] [facility] [address] [id number] [place] [address]- 3724 April, [facility] [place] [facility] [address] [id number] [place] [address]- 4051 April, [facility] [place] [facility] [address] [id number] [place] [address]- 3350 April, [facility] [place] [facility] [address] [id number] [place] [address]- 4405 April, [facility] [address] [id number] [place] [address]- 7197 April, [facility] [place] [facility] [address] [id number] [place] [address]- 8832 April, [facility] [place] [facility] [address] [id number] [place] [address]- 3776 April, [facility] [place] [facility] [address] [id number] [place] [address]- 8694 April, [facility] [place] [facility] [address] [id number] [place] [address]- 7870 Mar, [facility] [place] [facility] [address] [id number] [place] [address]- 7325 Mar, [facility] [place] [facility] [address] [id number] [place] [address]- 4326 Mar, [facility] [place] [facility] [address] [id number] [place] [address]- 8854 Mar, [facility] [place] [facility] [address] [id number] [place] [address]- 5165 Jan, [facility] [place] [facility] [address] [id number] [place] [address]- 9764 Jan, [facility] [place] [facility] [address] [id number] [place] [address]- 3619 Jan, [facility] [place] [facility] [address] [id number] [place] [address]- 0750 Jan, [facility] [place] [facility] [address] [id number] [place] [address]- 3239 Jan, [facility] [place] [facility] [address] [id number] [place] [address]- 8238 Jan, [facility] [place] [facility] [address] [id number] [place] [address]- 4692 Jan, [facility] [place] [facility] [address] [id number] [place] [address]- 2220 Jan, [facility] [place] [facility] [address] [id number] [place] [address]- 3745 Jan, [facility] [place] [facility] [address] [id number] [place] [address]- 8480 Jan, [facility] [place] [facility] [address] [id number] [place] [address]- 4762 Jan, [facility] [place] [facility] [address] [id number] [place] [address]- 0100 Jan, [facility] [place] [facility] [address] [id number] [place] [address]- 8330 Dec, [facility] [place] [facility] [address] [id number] [place] [address]- 3093 Dec, [facility] [place] [facility] [address] [id number] [place] [address]- 0641 Dec, [facility] [place] [facility] [address] [id number] [place] [address]- 8951 Dec, [facility] [place] [facility] [address] [id number] [place] [address]- 2546 Nov, [facility] [place] [facility] [address] [id number] [place] Nov, [facility] [place] [facility] [address] [id number] [place] [address]- 8849 Nov, [facility] [place] [facility] [address] [id number] [place] [address]- 3070 Nov, [facility] [place] [facility] [address] [id number] [place] [address]- 4282 Oct, [facility] [place] [facility] [address] [id number] [place] [address]- 9839 Oct, [facility] [place] [facility] [address] [id number] [place] [address] Sep, [facility] [place] [facility] [address] [id number] [place] [address]- 4049 Sep, [facility] [place] [facility] [address] [id number] [place] [address]- 3307 Jul, [facility] [place] [facility] [address] [id number] [place] [address] Jul, [facility] [place] [facility] [address] [id number] [place] [address]- 1007 Jun, [facility] [place] [facility] [address] [id number] [place] [address]- 8325 Jun, [facility] [place] [facility] [address] [id number] [place] [address]- 3514 Jun, [facility] [place] [facility] [address] [id number] [place] [address]- 8362 May, [facility] [place] [facility] [address] [id number] [place] [address]- 2488 May, [facility] [place] [facility] [address] [id number] [place] [address]- 2417 May, [facility] [place] [facility] [address] [id number] [place] [address] 2546 May, [facility] [address] [id number] [place] [address]- 7979 May, [facility] [address] [id number] [place] [address]- 7356 April, [facility] [address] [id number] [place] [address]- 7016 April, [facility] [address] [id number] [place] [address]- 2546 April, [facility] [address] [id number] [place] [address]- 0426 April, [facility] [address] [id number] [place] [address]- 1156 April, [facility] [address] [id number] [place] [address]- 7436 April, [facility] [address] [id number] [place] [address]- 2383 Mar, [facility] [address] [id number] [place] [address]- 8320 Mar, [facility] [address] [id number] [place] [address]- 6585 Jan, [facility] [address] [id number] [place] [address]- 2546 Jan, [facility] [address] [id number] [place] [address]- 2546 Jan, [facility] [address] [id number] [place] [address]- 8816 Jan, [facility] [address] [id number] [place] [address]- 2546 Jan, [facility] [address] [id number] [place] [address]- 6358 Jan, [facility] [address] [id number] [place] [address]- 3741 05 Jan, 2012 [facility] [place] [facility] [address] [id number] [place] [address]- 3546 04 Jan, 2012 [facility] [place] [facility] [address] [id number] [place] [address]- 7786 Jan, 2012 [facility] [place] [facility] [address] [id number] [place] [address]- 4152 Jan, 2012 [facility] [place] [facility] [address] [id number] [place] [address]- 9342 Jan, [facility] [place] [facility] [address] [id number] [place] [address]- 8203 Dec, [facility] [place] [facility] [address] [id number] [place] [address]- 7993 Nov, [facility] [place] [facility] [address] [id number] [place] [address]- 1755 Nov, [facility] [place] [facility] [address] [id number] [place] [address]- 8483 Nov, [facility] [place] [facility] [address] [id number] [place] [address]- 2851 Nov, [facility] [place] [facility] [address] [id number] [place] [address]- 3793 Nov, [facility] [place] [facility] [address] [id number] [place] [address]- 7081 Nov, [facility] [place] [facility] [address] [id number] [place] [address] 2540 Nov, [facility] [place] [facility] [address] [id number] [place] [address]- 0229 Nov, [facility] [place] [facility] [address] [id number] [place] [address]- 9406 Nov, [facility] [place] [facility] [address] [id number] [place] [address]- 2867 18 Nov, 2012 [facility] [address] [id number] [place] [address]- 5753 18 Nov, 2012 [facility] [place] [facility] [address] [id number] [place] [address]- 7235 Nov, [facility] [address] [id number] [place] [address]- 1470 Nov, [facility] [place] [facility] [address] [id number] [place] [address]- 4878 17 Oct, 2012 [facility] [address] [id number] [place] [address], [place] [address]- 4197 Oct, [facility] [place] [facility] [address] [facility] [id number] [place] [address]- 9781 Oct, [facility] [place] [facility] [address] [facility] [id number] [place] [address]- 0616 Sep, [facility] [place] [facility] [address] [id number] [place] [address]- 4401 19 Sep, 2012 [facility] [place] [facility] [id number] [place] [address]- 0074 10 Sep, 2012 [facility] [address] [facility] [id number] [place] [address]- 7223 10 Sep, 2012 [facility] [place] [facility] [address] [facility] [id number] [place] [address]- 2187 27 Aug, 2012 [facility] [place] [facility] [address] [id number] [place] [address]- 3433 20 Aug, 2012 [facility] [place] [facility] [address] [id number] [place] [address]- 0042 24 Jul, 2012 [facility] [place] [facility] [address] [facility] [id number] [place] [address]- 3506 27 May, 2012 [facility] [place] [facility] [address] [facility] [id number] [place] [address]- 7253 14 May, 2012 [facility] [address] [id number] [place] [address]- 5347 14 May, 2012 [facility] [place] [facility] [address] [id number] [place] [address]- 0726 April, [facility] [place] [facility] [address] [id number] [place] [address]- 9116 Mar, [facility] [place] [facility] [address] [id number] [place] [address]- 6806 Mar, [facility] [address] [id number] [place] [address]- 6791 Mar, [facility] [place] [facility] [address] [id number] [place] [address]- 8536 Jan, [facility] [place] [facility] [address] [id number] [place] [address]- 8796 Jan, [facility] [place] [facility] [address] [id number] [place] [address]- 5008 Jan, [facility] [place] [facility] [address] [id number] [place] [address]- 1367 Dec, [facility] [place] [facility] [address] [id number] [place] [address]- 2017 Dec, [facility] [place] [facility] [address] [id number] [place] [address]- 5820 Dec, [facility] [place] [facility] [address] [id number], [place] [address]- 1124 Dec, [facility] [place] [facility] [address] [id number] [place] [address]- 8330 Nov, [facility] [place] [facility] [address] [id number] [place] [address]- 3176 Nov, [facility] [place] [facility] [address] [id number], [place] [address]- 1796 Nov, [facility] [place] [facility] [address] [id number], [place] [address]- 0578 03 Oct, 2011 [facility] [address] [id number] [place] [address]- 5439 31 Sep, 2011 [facility] [place] [facility] [address] [id number] [place] [address]- 6746 26 Sep, 2011 [facility] [place] [facility] [address] [id number] [place] [address]- 3646 13 Sep, 2011 [facility] [place] [facility] [address] [id number] [place] [address]- 4796 15 Nov, 2010 [facility] [place] [facility] [address] [id number] [place] [address]- 2862 23 Oct, 2010 [facility] [place] [facility] [address] [id number] [place] [address]- 1774 Oct, [facility] [place] [facility] [address] [facility] [id number] [place] [address]- 7837 Oct, [facility] [place] [facility] [address] [facility] [id number] [place] [address]- 7192 16 Oct, 2010 [facility] [place] [facility] [address] [facility] [id number] [place] [address]- 5689 11 Sep, 2010 [facility] [place] [facility] [address] [facility] [id number] [place] [address]- 5022 April, [facility] [place] [facility] [address] [facility] [id number], [place] [address]- 0607 29 Nov, 2009 [facility] [place] [facility] [address] [id number] [place] [address]- 2548 24 Nov, 2009 [facility] [place] [facility] [address] [id number] [place] [address]- 0163 22 Nov, 2009 [facility] [place] [facility] [address] [facility] [id number] [place] [address]- 2540 10 Nov, 2009 [facility] [place] [facility] [address] [facility] [id number] [place] [address]- 5650 10 Nov, 2009 [facility] [place] [facility] [address] [facility] [id number] [place] [address]- 8408 Oct, [facility] [address] [facility] [id number] [place] [address]- 1077 Oct, [facility] [address] [facility] [id number] [place] [address]- 3224 Sep, [facility] [address] [facility] [id number], [place] [address]- 7913 Jan, IMMUNIZATIONS No Known Immunizations SOCIAL HISTORY Never Assessed REASON FOR VISIT Long-Term PLAN OF CARE Activity Details Follow Up prn Reason: VITAL SIGNS MEDICATIONS Unknown Medications RESULTS No Results PROCEDURES Procedure Date Ordered Result Body Site Minor complication (15 mins) Aug 14, 2018 INSTRUCTIONS MEDICATIONS ADMINISTERED No Known Medications MEDICAL (GENERAL) HISTORY Type Description Date Medical History Hypertension Medical History Heart disease CABG X3 Stress test 07/2015 Medical History Gastric ulcer Medical History Hyperlipidemia Medical History Headache syndrome Medical History Psychiatric disorders-depression/racing thoughts Medical History Depression Medical History At [facility] 04/2016 Started on Eliquis Medical History Anemia [...] 3 inpatient psych treatments in past in [place] oct 2016 Hospitalization History medical [facility] Nov 2016
--- OUTSIDE RECORDS SUMMARY | 2019-02-11 14:37 | XMS REPORT ---
Author Author WOLF AGUIRRE [facility] Address [address] [place] [address] Care Team Providers Care Toll Test Desk Worker Name Role Phone WOLF AGUIRRE Unavailable PROBLEMS Type Condition ICD9-CM Code [id number] Code Onset Dates Condition Status SNOMED Code Problem Sundowning F05 Active 532837498 Problem Constipation, unspecified constipation type K59.00 Active 97635859 Problem Reactive depression F32.9 Active 11200543 Problem Vascular dementia with behavior disturbance F01.51 Active 177223246844774 Problem Insomnia, unspecified type G47.00 Active 873801311 Problem Generalized anxiety disorder F41.1 Active 08958373 Problem Other chronic pain G89.29 Active 14357129 Problem Severe episode of recurrent major depressive disorder, without psychotic features F33.2 Active 25992544 Problem Slow transit constipation K59.01 Active 01149626 Problem 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 Active 780489460 Problem Obsessive thinking F42.8 Active 56983245 Problem Failure to thrive in adult R62.7 Active 144687924 Problem Dysthymic disorder F34.1 Active 88668769 Problem Hypertension I10 Active 65532524 Problem Mood disorder F39 Active 19174294 Problem Irritable bowel syndrome with diarrhea K58.0 Active 231978561 Problem Oropharyngeal dysphagia R13.12 Active 88251180 Problem 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 Active 53883195 Problem Other chronic pain G89.29 Active 51114524 Problem Primary insomnia F51.01 Active 4125570 Problem Poor appetite R63.0 Active 73731660 Problem 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 Active 120061322591608 Problem Iron deficiency anemia secondary to inadequate dietary iron intake D50.8 Active 384095265 Problem Coarse tremors G25.2 Active 12998107 Problem Gastroesophageal reflux disease without esophagitis K21.9 Active 951901882 Problem Essential hypertension I10 Active 90639642 ALLERGIES No Information ENCOUNTERS Encounter Location Date Diagnosis [facility] [id number] [place] [address] 73542- 5840 Sep, [facility] [id number] [place] [address] 99406- 4637 Aug, [facility] [id number] [place] [address] 32235- 6062 Aug, [facility] [id number] [place] [address] 46853- 8871 Aug, Positive urine drug screen R82.5 [facility] [address] [place] [id number] Aug, [facility] [id number] [place] [address] 37488- 0877 Aug, [facility] [id number] [place] [address] 73511- 8167 Aug, [facility] [id number] [place] [address] 60391- 9706 Aug, Irritable bowel syndrome with diarrhea K58.0 [facility] [id number] [place] [address] 38989- 7730 Aug, [facility] [id number] [place] [address] 03553- 1502 Aug, Obsessive thinking F42.8 ; Insomnia, unspecified type G47.00 and Other chronic pain G89.29 [facility] [address] [id number] Aug, Obsessive thinking F42.8 ; Irritable bowel syndrome with diarrhea K58.0 ; Pain in right foot M79.671 ; Pain of left foot M79.672 and Gastroesophageal reflux disease without esophagitis K21.9 [facility] [address] [place] [address] 42297- 9481 Aug, [facility] [id number] [place] [address] 61058- 7208 Jul, [facility] [address] [address] 5319 Jun, [facility] [address] [address]- 4547 Jun, [facility] [address] [id number] Jun, Left lower quadrant pain R10.32 and Left leg pain M79.605 [facility] [id number] [place] [address] 74324- 7867 Jun, [facility] [address] [id number] Jun, Pain in left hip M25.552 ; Pain in right hip M25.551 and Primary insomnia F51.01 [facility] [address] [address]- 6506 Jun, [facility] [address] [id number] May, [facility] [address] [address]- 1111 May, [facility] [address] [place] [address] 82454- 8436 May, [facility] [address] [place] [id number] May, Mood disorder F39 [facility] [address] [address]- 2992 May, [facility] [address] [address]- 6854 April, [facility] [address] [id number] April, Generalized anxiety disorder F41.1 ; Obsessive thinking F42.8 and Insomnia , unspecified type G47.00 [facility] [address] [address]- 4567 April, [facility] [id number] [place] [address] 28398- 3235 April, Rash of face R21 [facility] [id number] [place] [address] 32270- 5130 Mar, [facility] [id number] [place] [address] [phone]- 1458 Mar, [facility] [id number] [place] [address] 81194- 3546 Mar, [facility] [facility] [id number] [place] [address] 16400- 2650 Jan, [place] [address] 84339- 2093 Jan, [facility] [address] [id number] Jan, Constipation, unspecified constipation type K59.00 and Other chronic pain G89.29 [facility] [id number] [place] [address] 41289- 9038 Jan, [facility] [address] [place] [id number] Jan, Obsessive thinking F42.8 and Coarse tremors G25.2 [place] [id number] [place] [address] [phone] Jan, [facility] [facility] [id number] [place] [address] [id number] Jan, [facility] [address] [place] [id number] Jan, Generalized anxiety disorder F41.1 ; Obsessive thinking F42.8 ; Callus of foot L84 and 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 [facility] [id number] [place] [address] 62667- 3368 Dec, Generalized anxiety disorder F41.1 and Severe episode of recurrent major depressive disorder, without psychotic features F33.2 [facility] [id number] [place] [address] 43658- 8626 Nov, [facility] [address] [address]- 1470 Nov, [facility] [address] [id number] Nov, Oropharyngeal dysphagia R13.12 ; Generalized anxiety disorder F41.1 and 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 [facility] [address] [address] 4457 Nov, [facility] [id number] [id number] Nov, [facility] [address] [place] [address] 74955- 2537 Nov, [facility] [address] 5368 Nov, [facility] [id number] [place] [address] 81840- 0922 Oct, Constipation, unspecified constipation type K59.00 and Mood disorder F39 [facility] [address] 1576 Oct, [facility] [id number] [id number] Sep, [facility] [id number] [id number] Sep, [facility] [id number] [place] [address] [phone] Sep, [facility] [id number] [id number] Sep, [facility] [address] [id number] Sep, Generalized abdominal pain R10.84 [facility] [id number] [address]- 0926 Sep, [facility] [id number] [place] [id number] Sep, Generalized anxiety disorder F41.1 and Primary insomnia F51.01 [facility] [id number] [id number] Aug, [facility] [id number] [id number] Aug, Generalized anxiety disorder F41.1 [facility] [address], [place] [address]- 1406 Jul, [facility] [address] [id number] Jul, Obsessive thinking F42.8 [facility] [address] [address]- 4806 Jul, Generalized anxiety disorder F41.1 and Irritable bowel syndrome with diarrhea K58.0 [facility] [id number] [id number] Jul, Generalized anxiety disorder F41.1 [facility] [id number] [id number] Jun, Generalized anxiety disorder F41.1 [facility] [address] [address]- 4856 May, [facility] [address] [id number] May, Generalized anxiety disorder F41.1 ; Irritable bowel syndrome with diarrhea K58.0 and Coarse tremors G25.2 [facility] [id number] [address]- 4879 April, [facility] [address], [place] [address]- 6175 April, [facility] [address] [address]- 4656 April, [facility] [id number] [address]- 4933 Mar, [facility] [address] [address] Mar, Severe episode of recurrent major depressive disorder, without psychotic features F33.2 and Pain in left hip M25.552 [facility] [address] [place] [address] 22953- 7685 Mar, [facility] [id number] [place] [address] 14867- 1628 Mar, [facility] [id number] [place] [address] 94147- 8379 Mar, [facility] [facility] [id number] [place] [address] 07414- 6544 Mar, Pain in right hip M25.551 and Self-care deficit in patient living alone R46.89 [facility] [id number] [place] [address] 13098 -9819 Jan, Other chronic pain G89.29 ; Pain in left hip M25.552 and Slow transit constipation K59.01 [place] [id number] [place] [address] 21599- 1896 Jan, [facility] [id number] [place] [address] 49430- 7258 Dec, Other depression F32.89 ; Constipation, unspecified constipation type K59.00 and Insomnia, unspecified type G47.00 [facility] [id number] [place] [address] 89469- 6864 Nov, Reactive depression F32.9 ; Chronic idiopathic constipation K59.04 ; Generalized anxiety disorder F41.1 ; Coarse tremors G25.2 ; Gastroesophageal reflux disease without esophagitis K21.9 ; Dysthymic disorder F34.1 ; Vitamin deficiency, unspecified E56.9 and Primary insomnia F51.01 [place] [id number] [place] [address] 51008- 5795 Nov, [place] [address] 10372- 0421 Nov, [place] [id number] [place] [address] 01222- 8719 Nov, [place] [address] 10219- 2765 Nov, Reactive depression F32.9 ; Essential hypertension I10 ; Generalized anxiety disorder F41.1 ; 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 ; Pain in right hip M25.551 ; Other chronic pain G89.29 ; Chronic idiopathic constipation K59.04 ; Primary insomnia F51.01 ; Coarse tremors G25.2 ; Gastroesophageal reflux disease without esophagitis K21.9 ; Iron deficiency anemia secondary to inadequate dietary iron intake D50.8 and Vitamin deficiency, unspecified E56.9 [place] [id number] [place] [address] 13970- 2692 Oct, [address] 94491- 9667 Oct, [facility] [facility] [id number] [place] [address] 09206- 9561 Oct, [address] 76280- 9505 16 Oct, 2016 Generalized anxiety disorder F41.1 ; Poor appetite R63.0 ; Dehydration E86.0 and Failure to thrive in adult R62.7 [place] [id number] [place] [address] 06957- 9946 07 Oct, 2016 Generalized anxiety disorder F41.1 and Failure to thrive in adult R62.7 [facility] [id number] [place] [address] 79891- 8354 Oct, [address] 37252- 6008 Oct, [facility] [id number] [place] [address] 68239 -8452 Sep, Vaginal discharge N89.8 and Acute cystitis with hematuria N30.01 [facility] [address], [place] [address]- 8547 Sep, [facility] [id number] [place] [address] 93158- 0933 Sep, [facility] [id number] [place] [address] 39620- 6780 Sep, Dysthymic disorder F34.1 ; Acute vaginitis N76.0 ; Dysuria R30.0 and Vaginal yeast infection B37.3 [place] [id number] [place] [address] 59845- 5705 Aug, [place] [address] 94229- 4841 Aug, [facility] [id number] [place] [address] 45932 -2683 Aug, Foul smelling urine R82.90 ; Rapid heart rate R00.0 and Flatulence R14.3 [place] [id number] [place] [address] 35226- 1590 Aug, [place] [id number] [place] [address] 28107- 6119 Jul, Constipation, unspecified constipation type K59.00 ; Weak R53.1 ; Poor appetite R63.0 ; Coronary artery disease involving jena heart without angina pectoris, unspecified vessel or lesion type I25.10 ; Fatigue, unspecified type R53.83 ; Urinary incontinence, unspecified type R32 and Insomnia, unspecified type G47.00 [place] [id number] [place] [address] 90891- 7574 Jul, [place] [id number] [place] [address] 21357- 6391 Jun, Dysuria R30.0 [place] [id number] [place] [address] 04821- 3845 Jun, [facility] [address], [place] [address]- 5411 Jun, Urinary tract infection, site not specified N39.0 ; Acute vaginitis N76.0 and Diarrhea, unspecified type R19.7 [facility] [address], [place] [address]- 2940 May, [facility] [id number] [place] [address] 30115- 3864 April, [facility] [id number] [place] [address] [id number] April, Encounter for dental examination Z01.20 [facility] [id number] [place] [address] 79323- 0701 April, [facility] [id number] [place] [address] 75645- 4886 April, Tremor R25.1 and Episodic tension-type headache, not intractable G44.219 [facility] [id number] [place] [address] 82088- 7250 Mar, [facility] [id number] [place] [address] 55490- 4989 Jan, Mood disorder F39 [facility] [address] [place] [address] 66828 -9525 Jan, [facility] [address] [place] [address] 29959- 3882 Jan, [facility] [address] [place] [address] 89858- 5899 Jan, [facility] [id number] [place] [address] 41879- 4756 Jan, [facility] [id number] [place] [address] 29380- 2695 Jan, [facility] [id number] [place] [address] 89237- 6778 Jan, [facility] [address] [place] [address] 30977 -9310 Dec, Acute diarrhea R19.7 [facility] [id number] [place] [address] 65981- 9866 Dec, [facility] [id number] [place] [address] 86706- 4234 Dec, [facility] [id number] [place] [address] 78124- 9993 Dec, [facility] [id number] [place] [address] 93997 -2658 Dec, N&V (nausea and vomiting) R11.2 [facility] [address] [place] [address] 65568- 7909 Dec, Generalized anxiety disorder F41.1 [facility] [address] [place] [address] 15501- 0046 Dec, Generalized anxiety disorder F41.1 [facility] [id number] [place] [address] 68941- 4809 Nov, Post concussion syndrome F07.81 [facility] [id number] [place] [address] 06729- 0294 Nov, Generalized anxiety disorder F41.1 [facility] [id number] [place] [address] 06554- 0567 Nov, [facility] [id number] [place] [address] 19602- 9849 Nov, Generalized anxiety disorder F41.1 [facility] [id number] [place] [address] [id number] Oct, Dental caries K02.9 [facility] [address] [place] [address] 36039- 2841 Oct, [facility] [id number] [place] [address] [id number] Oct, Dental examination Z01.20 [facility] [id number] [id number] Oct, Encounter for dental examination Z01.20 [facility] [address] [place] [address] 50254- 6692 09 Oct, 2015 CAD (coronary artery disease) I25.10 [facility] [id number] [place] [address] 23568- 9594 Sep, Generalized anxiety disorder F41.1 [facility] [id number] [place] [address] 78992- 7270 Sep, [facility] [id number] [place] [address] 59880- 1027 Sep, Rash and other nonspecific skin eruption R21 and Yeast vaginitis B37.3 [facility] [address] [place] [address] 49150- 1201 Sep, Generalized anxiety disorder F41.1 [facility] [id number] [place] [address] 14119- 7872 Aug, Insect bites 919.4 and Hemorrhoids 455.6 [facility] [address] [place] [address] 01335- 2265 Aug, Generalized anxiety disorder 300.02 [facility] [address] [place] [address] 00804- 1397 08 Aug, 2015 [facility] [id number] [place] [address] 09938- 7869 Aug, [facility] [id number] [place] [address] 59485- 6271 Aug, Generalized anxiety disorder 300.02 ; No condition on Eidson II V71.09 ; Heart problem 429.9 and Hypertension 401.9 [facility] [address] [place] [address] 30540- 4793 Aug, [facility] [id number] [address]- 5321 Jul, [facility] [address] [place] [address] 51902- 7381 Jul, [facility] [address] [place] [address] 13948- 5914 Jul, [facility] [address] [place] [address] 34645- 1449 Jul, [facility] [id number] [place] [address] 74618- 9704 Jul, Rash 782.1 [facility] [id number] [place] [address] 25006- 1214 Jul, UTI (urinary tract infection) 599.0 [facility] [address] [place] [address] 77374- 4236 Jul, [facility] [address] [place] [address] 28861- 1246 Jun, Dysthymia 300.4 and Anxiety 300.00 [facility] [address] [place] [address] 71576- 1975 Jun, 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 [facility] [address] [place] [address] 12750- 2741 May, [facility] [address] [place] [address] 85383- 1973 May, [facility] [address], [place] [address]- 8051 May, Unspecified breast screening V76.10 [facility] [id number] [place] [address] [id number] May, Dental examination V72.2 [facility] [address], [place] [address]- 4442 April, [facility] [address] [place] [address] 00271 2546 April, [facility] [address] [id number] [id number] April, Dental examination V72.2 [facility] [address] [id number] [id number] April, Dental examination V72.2 [facility] [address] [id number] [place] [address]- 9596 14 Mar, 2015 [facility] [address] [id number] [place] [address] 2546 Mar, [facility] [address] [id number] [place] [address]- 5686 25 Jan, 2015 [facility] [address] [id number] [place] [address] 25 Jan, 2015 [facility] [address] [id number] [place] [address] 18 Jan, 2015 [facility] [address] [id number], [place] [address] 18 Jan, 2015 [facility] [address] [id number] [place] [address] 16 Jan, 2015 [facility] [address] [id number][place] [address] 16 Jan, 2015 [facility] [address] [id number], [place] [address] 13 Jan, 2015 [facility] [address] [id number], [place] [address] 13 Jan, 2015 [facility] [address] [id number] [place] [address] 11 Jan, 2015 [facility] [address] [id number] [place] [address] 11 Jan, 2015 [facility] [address] [id number], [place] [address] Jan, [facility] [place] [facility] [address] [id number] [place] [address] Jan, [facility] [place] [facility] [address] [id number] [place] [address] Jan, [facility] [place] [facility] [address] [id number] [place] [address] Jan, [facility] [place] [facility] [address] [id number] [place] [address] Jan, [facility] [place] [facility] [address] [id number] [place] [address] Jan, [facility] [place] [facility] [address] [id number] [place] [address] Jan, [facility] [place] [facility] [address] [id number] [place] [address] Jan, [facility] [place] [facility] [address] [id number] [place] [address] Jan, [facility] [place] [facility] [address] [id number] [place] [address] Jan, [facility] [place] [facility] [address] [id number] [place] [address] Jan, [facility] [place] [facility] [address] [id number] [place] [address] 69[address] Jan, [facility] [place] [facility] [address] [id number] [place] [address] 9545 Dec, [facility] [place] [facility] [address] [id number] [place] [address] 3292 Dec, [facility] [place] [facility] [address] [id number] [place] [address] 6569 Dec, [facility] [place] [facility] [address] [id number] [place] [address] Dec, [facility] [place] [facility] [address] [id number] [place] [address] 0798 Nov, [facility] [place] [facility] [address] [id number] [place] [address] 1206 Nov, [facility] [place] [facility] [address] [id number] [place] [address] 6063 Nov, [facility] [place] [facility] [address] [id number] [place] [address] 9311 Nov, [facility] [place] [facility] [address] [id number] [place] [address] 5897 Nov, [facility] [place] [facility] [address] [id number] [place] [address] 3423 Nov, [facility] [place] [facility] [address] [id number] [place] [address]- 4517 Nov, [facility] [place] [facility] [address] [id number] [place] [address]- 3195 Oct, [facility] [place] [facility] [address] [id number] [place] [address] 2289 Oct, [facility] [place] [facility] [address] [id number] [place] [address]- 2392 Oct, [facility] [place] [facility] [address] [id number] [place] [address]- 5120 Oct, [facility] [place] [facility] [address] [id number] [place] [address]- 4268 Oct, [facility] [place] [facility] [address] [id number] [place] [address]- 1828 Oct, [facility] [place] [facility] [address] [id number] [place] [address] Oct, [facility] [place] [facility] [address] [id number] [place] [address]- 9962 Oct, [facility] [place] [facility] [address] [id number] [place] [address] 8163 Oct, [facility] [place] [facility] [address] [id number] [place] [address]- 2599 Oct, [facility] [place] [facility] [address] [id number] [place] [address] 3399 Oct, [facility] [place] [facility] [address] [id number] [place] [address] Oct, [facility] [place] [facility] [address] [id number] [place] [address]- 7659 Sep, [facility] [place] [facility] [address] [id number] [place] [address]- 5865 Sep, [facility] [place] [facility] [address] [id number] [place] [address]- 0820 Sep, [facility] [place] [facility] [address] [id number] [place] [address]- 8518 Sep, [facility] [place] [facility] [address] [id number] [place] [address]- 7868 Jul, [facility] [place] [facility] [address] [id number] [place] [address]- 1012 Jul, [facility] [place] [facility] [address] [id number] [place] [address]- 5072 Jul, [facility] [place] [facility] [address] [id number] [place] [address]- 1659 Jul, [facility] [place] [facility] [address] [id number], [place] [address] Jun, [facility] [place] [facility] [address] [id number] [place] [address]- 5251 Jun, [facility] [place] [facility] [address] [id number] [place] [address]- 8283 Jun, [facility] [place] [facility] [address] [id number] [place] [address] Jun, [facility] [place] [facility] [address] [id number] [address] 82[address] May, [facility] [address] [id number] [place] [address]- 8286 May, [facility] [place] [facility] [address] [id number] [place] [address]- 1497 April, [facility] [place] [facility] [address] [id number] [place] [address] 5942 April, [facility] [place] [facility] [address] [id number] [place] [address]- 4315 April, [facility] [place] [facility] [address] [id number] [place] [address]- 4012 April, [facility] [place] [facility] [address] [id number] [place] [address]- 2312 April, [facility] [address] [id number] [place] [address]- 8490 April, [facility] [place] [facility] [address] [id number] [place] [address]- 3886 April, [facility] [place] [facility] [address] [id number] [place] [address]- 9860 April, [facility] [place] [facility] [address] [id number] [place] [address]- 4649 April, [facility] [place] [facility] [address] [id number] [place] [address]- 9049 Mar, [facility] [place] [facility] [address] [id number] [place] [address]- 6965 Mar, [facility] [place] [facility] [address] [id number] [place] [address]- 6155 Mar, [facility] [place] [facility] [address] [id number] [place] [address]- 7268 Mar, [facility] [place] [facility] [address] [id number] [place] [address]- 3931 Jan, [facility] [place] [facility] [address] [id number] [place] [address]- 3448 Jan, [facility] [place] [facility] [address] [id number] [place] [address]- 2171 Jan, [facility] [place] [facility] [address] [id number] [place] [address]- 6514 Jan, [facility] [place] [facility] [address] [id number] [place] [address]- 9835 Jan, [facility] [place] [facility] [address] [id number] [place] [address]- 0679 Jan, [facility] [place] [facility] [address] [id number] [place] [address]- 9082 Jan, [facility] [place] [facility] [address] [id number] [place] [address]- 6445 Jan, [facility] [place] [facility] [address] [id number] [place] [address]- 0354 Jan, [facility] [place] [facility] [address] [id number] [place] [address]- 2647 Jan, [facility] [place] [facility] [address] [id number] [place] [address]- 5754 Jan, [facility] [place] [facility] [address] [id number] [place] [address]- 3908 Jan, [facility] [place] [facility] [address] [id number] [place] [address]- 6408 Dec, [facility] [place] [facility] [address] [id number] [place] [address]- 6205 Dec, [facility] [place] [facility] [address] [id number] [place] [address]- 4863 Dec, [facility] [place] [facility] [address] [id number] [place] [address]- 9736 Dec, [facility] [place] [facility] [address] [id number] [place] [address]- 2546 Nov, [facility] [place] [facility] [address] [id number] [place] Nov, [facility] [place] [facility] [address] [id number] [place] [address]- 8818 Nov, [facility] [place] [facility] [address] [id number] [place] [address]- 8568 Nov, [facility] [place] [facility] [address] [id number] [place] [address]- 4786 Oct, [facility] [place] [facility] [address] [id number] [place] [address]- 8976 Oct, [facility] [place] [facility] [address] [id number] [place] [address] Sep, [facility] [place] [facility] [address] [id number] [place] [address]- 7029 Sep, [facility] [place] [facility] [address] [id number] [place] [address]- 1350 Jul, [facility] [place] [facility] [address] [id number] [place] [address] Jul, [facility] [place] [facility] [address] [id number] [place] [address]- 9884 Jun, [facility] [place] [facility] [address] [id number] [place] [address]- 5298 Jun, [facility] [place] [facility] [address] [id number] [place] [address]- 6448 Jun, [facility] [place] [facility] [address] [id number] [place] [address]- 0223 May, [facility] [place] [facility] [address] [id number] [place] [address]- 5066 May, [facility] [place] [facility] [address] [id number] [place] [address]- 7070 May, [facility] [place] [facility] [address] [id number] [place] [address] 2546 May, [facility] [address] [id number] [place] [address]- 8286 May, [facility] [address] [id number] [place] [address]- 7206 April, [facility] [address] [id number] [place] [address]- 2856 April, [facility] [address] [id number] [place] [address]- 2546 April, [facility] [address] [id number] [place] [address]- 3446 April, [facility] [address] [id number] [place] [address]- 1586 April, [facility] [address] [id number] [place] [address]- 3306 April, [facility] [address] [id number] [place] [address]- 8650 Mar, [facility] [address] [id number] [place] [address]- 2842 Mar, [facility] [address] [id number] [place] [address]- 5400 Jan, [facility] [address] [id number] [place] [address]- 2546 Jan, [facility] [address] [id number] [place] [address]- 2546 Jan, [facility] [address] [id number] [place] [address]- 3656 Jan, [facility] [address] [id number] [place] [address]- 2546 Jan, [facility] [address] [id number] [place] [address]- 9681 Jan, [facility] [address] [id number] [place] [address]- 0499 05 Jan, 2012 [facility] [place] [facility] [address] [id number] [place] [address]- 2156 04 Jan, 2012 [facility] [place] [facility] [address] [id number] [place] [address]- 8546 Jan, 2012 [facility] [place] [facility] [address] [id number] [place] [address]- 2813 Jan, 2012 [facility] [place] [facility] [address] [id number] [place] [address]- 4733 Jan, [facility] [place] [facility] [address] [id number] [place] [address]- 5980 Dec, [facility] [place] [facility] [address] [id number] [place] [address]- 2671 Nov, [facility] [place] [facility] [address] [id number] [place] [address]- 7701 Nov, [facility] [place] [facility] [address] [id number] [place] [address]- 1397 Nov, [facility] [place] [facility] [address] [id number] [place] [address]- 4903 Nov, [facility] [place] [facility] [address] [id number] [place] [address]- 1662 Nov, [facility] [place] [facility] [address] [id number] [place] [address]- 9257 Nov, [facility] [place] [facility] [address] [id number] [place] [address] 2542 Nov, [facility] [place] [facility] [address] [id number] [place] [address]- 5944 Nov, [facility] [place] [facility] [address] [id number] [place] [address]- 5796 Nov, [facility] [place] [facility] [address] [id number] [place] [address]- 6410 18 Nov, 2012 [facility] [address] [id number] [place] [address]- 6167 18 Nov, 2012 [facility] [place] [facility] [address] [id number] [place] [address]- 6867 Nov, [facility] [address] [id number] [place] [address]- 8755 Nov, [facility] [place] [facility] [address] [id number] [place] [address]- 8327 17 Oct, 2012 [facility] [address] [id number] [place] [address], [place] [address]- 2299 Oct, [facility] [place] [facility] [address] [facility] [id number] [place] [address]- 9033 Oct, [facility] [place] [facility] [address] [facility] [id number] [place] [address]- 4953 Sep, [facility] [place] [facility] [address] [id number] [place] [address]- 0235 19 Sep, 2012 [facility] [place] [facility] [id number] [place] [address]- 0568 10 Sep, 2012 [facility] [address] [facility] [id number] [place] [address]- 4876 10 Sep, 2012 [facility] [place] [facility] [address] [facility] [id number] [place] [address]- 6680 27 Aug, 2012 [facility] [place] [facility] [address] [id number] [place] [address]- 2778 20 Aug, 2012 [facility] [place] [facility] [address] [id number] [place] [address]- 9709 24 Jul, 2012 [facility] [place] [facility] [address] [facility] [id number] [place] [address]- 3036 27 May, 2012 [facility] [place] [facility] [address] [facility] [id number] [place] [address]- 5147 14 May, 2012 [facility] [address] [id number] [place] [address]- 5549 14 May, 2012 [facility] [place] [facility] [address] [id number] [place] [address]- 7476 April, [facility] [place] [facility] [address] [id number] [place] [address]- 3436 Mar, [facility] [place] [facility] [address] [id number] [place] [address]- 4266 Mar, [facility] [address] [id number] [place] [address]- 3645 Mar, [facility] [place] [facility] [address] [id number] [place] [address]- 6606 Jan, [facility] [place] [facility] [address] [id number] [place] [address]- 5446 Jan, [facility] [place] [facility] [address] [id number] [place] [address]- 6161 Jan, [facility] [place] [facility] [address] [id number] [place] [address]- 6739 Dec, [facility] [place] [facility] [address] [id number] [place] [address]- 5675 Dec, [facility] [place] [facility] [address] [id number] [place] [address]- 5730 Dec, [facility] [place] [facility] [address] [id number], [place] [address]- 4687 Dec, [facility] [place] [facility] [address] [id number] [place] [address]- 3026 Nov, [facility] [place] [facility] [address] [id number] [place] [address]- 2856 Nov, [facility] [place] [facility] [address] [id number], [place] [address]- 0666 Nov, [facility] [place] [facility] [address] [id number], [place] [address]- 2347 03 Oct, 2011 [facility] [address] [id number] [place] [address]- 8052 31 Sep, 2011 [facility] [place] [facility] [address] [id number] [place] [address]- 6186 26 Sep, 2011 [facility] [place] [facility] [address] [id number] [place] [address]- 4496 13 Sep, 2011 [facility] [place] [facility] [address] [id number] [place] [address]- 4774 15 Nov, 2010 [facility] [place] [facility] [address] [id number] [place] [address]- 9613 23 Oct, 2010 [facility] [place] [facility] [address] [id number] [place] [address]- 9796 Oct, [facility] [place] [facility] [address] [facility] [id number] [place] [address]- 0430 Oct, [facility] [place] [facility] [address] [facility] [id number] [place] [address]- 9292 16 Oct, 2010 [facility] [place] [facility] [address] [facility] [id number] [place] [address]- 7952 11 Sep, 2010 [facility] [place] [facility] [address] [facility] [id number] [place] [address]- 8015 April, [facility] [place] [facility] [address] [facility] [id number], [place] [address]- 4970 29 Nov, 2009 [facility] [place] [facility] [address] [id number] [place] [address]- 2545 24 Nov, 2009 [facility] [place] [facility] [address] [id number] [place] [address]- 2157 22 Nov, 2009 [facility] [place] [facility] [address] [facility] [id number] [place] [address]- 2542 10 Nov, 2009 [facility] [place] [facility] [address] [facility] [id number] [place] [address]- 8983 10 Nov, 2009 [facility] [place] [facility] [address] [facility] [id number] [place] [address]- 5731 Oct, [facility] [address] [facility] [id number], [place] [address]- 3538 Oct, [facility] [address] [facility] [id number][place] [address]- 4989 Sep, [facility] [address] [facility] [id number], [place] [address]- 2646 Jan, IMMUNIZATIONS No Known Immunizations SOCIAL HISTORY Never Assessed REASON FOR VISIT Med lit update PLAN OF CARE VITAL SIGNS MEDICATIONS Medication Instructions Dosage Frequency Start Date End Date Duration Status Xifaxan 550 MG Orally Three times a day 1 tablet 8h Aug, Aug, 14 days Active Rivastigmine 4.6 MG/24HR APPLY ONE PATCH EXTERNALLY ONCE DAILY 30 Active Isopto Tears 0.5 % Ophthalmic every 6 hours as needed for PRN- dry eyes 1 drop in both eyes Active Tylenol 325 MG Orally every 4 hrs 2 capsules as needed 4h Active Pravastatin Sodium 20 MG TAKE 1 TABLET BY MOUTH EVERY NIGHT AT BEDTIME 30 Active Folic Acid 1 MG Orally Once a day at bedime 1 tablet Active Mirtazapine 15 mg Orally Once a day 1 tablet at bedtime 24h Active Zantac 150 mg Orally twice a day 1 tablet 12h Jun, 30 day(s) Active Clonazepam 0.5 MG Orally Once a day at bedtime 1 tablet at bedtime 28 days Active Vitamin D-3 1000 UNIT Orally Once a day at bedtime 2 capsules Active Milk of Magnesia 7.75 % Orally once daily 30 ml as needed 24h Active Gabapentin 100 mg Orally 2 times a day 1 capsule 12h Jun, Active Aspir-81 81 MG Orally Once a day 1 tablet 24h Nov, Active RESULTS No Results PROCEDURES No Known [...] inpatient psych treatments in past in [place] oct 2016 Hospitalization History [facility] Nov 2016
--- OUTSIDE RECORDS SUMMARY | 2019-02-11 14:38 | XMS REPORT ---
Author Author WOLF AGUIRRE [facility] Address [address] [place] [address] Care Team Providers Care Laboratory Chief Name Role Phone WOLF AGUIRRE Unavailable PROBLEMS Type Condition ICD9-CM Code [id number] Code Onset Dates Condition Status SNOMED Code Problem Sundowning F05 Active 764362101 Problem Constipation, unspecified constipation type K59.00 Active 44707073 Problem Reactive depression F32.9 Active 57450881 Problem Vascular dementia with behavior disturbance F01.51 Active 017764260126683 Problem Insomnia, unspecified type G47.00 Active 945388916 Problem Generalized anxiety disorder F41.1 Active 75825382 Problem Other chronic pain G89.29 Active 49815806 Problem Severe episode of recurrent major depressive disorder, without psychotic features F33.2 Active 35787471 Problem Slow transit constipation K59.01 Active 91190989 Problem 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 Active 326054014 Problem Obsessive thinking F42.8 Active 72570289 Problem Failure to thrive in adult R62.7 Active 987728854 Problem Dysthymic disorder F34.1 Active 55280402 Problem Hypertension I10 Active 85700565 Problem Mood disorder F39 Active 89362377 Problem Irritable bowel syndrome with diarrhea K58.0 Active 080354852 Problem Oropharyngeal dysphagia R13.12 Active 83136009 Problem 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 Active 37585258 Problem Other chronic pain G89.29 Active 53613026 Problem Primary insomnia F51.01 Active 2661300 Problem Poor appetite R63.0 Active 84061531 Problem Atherosclerotic heart disease of [place] 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 Active 424913703717979 Problem Iron deficiency anemia secondary to inadequate dietary iron intake D50.8 Active 684440312 Problem Coarse tremors G25.2 Active 32698229 Problem Gastroesophageal reflux disease without esophagitis K21.9 Active 281179059 Problem Essential hypertension I10 Active 49198189 ALLERGIES No Information ENCOUNTERS Encounter Location Date Diagnosis [facility] [address] [address] Aug, [facility] [id number] [place] [address] 58997- 2771 Aug, [facility] [id number] [place] [address] 55836- 1957 Aug, Positive urine drug screen R82.5 [facility] [address] [place] [phone] Aug, [facility] [id number] [place] [address] 44695- 6934 Aug, [facility] [id number] [place] [address] 70460- 3803 Aug, [facility] [id number] [place] [address] 20844- 2139 Aug, Irritable bowel syndrome with diarrhea K58.0 [facility] [id number] [place] [address] 85295- 8290 Aug, [facility] [id number] [place] [address] 00154- 2059 Aug, Obsessive thinking F42.8 ; Insomnia, unspecified type G47.00 and Other chronic pain G89.29 [facility] [address] [place] [id number] Aug, Obsessive thinking F42.8 ; Irritable bowel syndrome with diarrhea K58.0 ; Pain in right foot M79.671 ; Pain of left foot M79.672 and Gastroesophageal reflux disease without esophagitis K21.9 [facility] [id number] [place] [address] 55284- 8625 Aug, [facility] [id number] [place] [address] 55724- 1360 Jul, [facility] [id number] [place] [address] 11141- 0484 Jun, [facility] [address] [address] 1687 Jun, [facility] [address] [address] Jun, Left lower quadrant pain R10.32 and Left leg pain M79.605 [facility] [id number] [place] [address] 10968- 0816 Jun, [facility] [address] [place] [id number] Jun, Pain in left hip M25.552 ; Pain in right hip M25.551 and Primary insomnia F51.01 [facility] [id number] [place] [address] 30221- 6886 Jun, [facility] [address] [place] [id number] May, [facility] [id number] [place] [address] 58165- 0440 May, [facility] [address] [place] [address] 38192- 1486 May, [facility] [address] [place] [id number] May, Mood disorder F39 [facility] [address] [address] 0614 May, [facility] [id number] [place] [address] 82662- 4485 April, [facility] [address] [place] [id number] April, Generalized anxiety disorder F41.1 ; Obsessive thinking F42.8 and Insomnia , unspecified type G47.00 [facility] [address] [address] 2870 April, [facility] [address] [address] 5558 April, Rash of face R21 [place] [address] [address] 6294 Mar, [facility] [id number] [place] [address] 66234- 9167 Mar, [facility] [address] [place] [address] [id number]- 6914 Mar, [facility] [id number] [place] [address] 64967- 3461 Jan, [facility] [address] [place] [address] 51683- 5634 Jan, [facility] [address] [id number] Jan, Constipation, unspecified constipation type K59.00 and Other chronic pain G89.29 [place] [id number] [place] [address] 38395- 3492 Jan, [facility] [address] [id number] Jan, Obsessive thinking F42.8 and Coarse tremors G25.2 [place] [id number] [place] [address] [phone] Jan, [facility] [id number] [place] [address] [id number] Jan, [facility] [address] [id number] Jan, Generalized anxiety disorder F41.1 ; Obsessive thinking F42.8 ; Callus of foot L84 and 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 [facility] [address] [address] 1516 Dec, Generalized anxiety disorder F41.1 and Severe episode of recurrent major depressive disorder, without psychotic features F33.2 [facility] [address] [place] [address] 065328- 7024 Nov, [facility] [id number] [place] [address] 70542- 3638 Nov, [facility] [address] [phone] Nov, Oropharyngeal dysphagia R13.12 ; Generalized anxiety disorder F41.1 and 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 [facility] [address] [address]- 7865 Nov, [facility] [id number] [place] [address] [id number] Nov, [facility] [address] [place] [address] 15073- 2540 Nov, [facility] [id number] [place] [address] 43367- 9151 Nov, [facility] [id number] [place] [address] 71533- 9923 Oct, Constipation, unspecified constipation type K59.00 and Mood disorder F39 [facility] [address] [address]- 3573 Oct, [facility] [id number] [place] [address] [id number] Sep, [facility] [id number] [place] [address] [id number] Sep, [facility] [id number] [place] [address] [id number] Sep, [facility] [id number] [place] [address] [id number] Sep, [facility] [address] [place] [phone] Sep, Generalized abdominal pain R10.84 [facility] [address] [address]- 2016 Sep, [facility] [id number] [phone] Sep, Generalized anxiety disorder F41.1 and Primary insomnia F51.01 [facility] [id number] [place] [id number] Aug, [facility] [id number] [id number] Aug, Generalized anxiety disorder F41.1 [facility] [id number] [address]- 6806 Jul, [facility] [place] [address] [id number] Jul, Obsessive thinking F42.8 [facility] [id number] [id number] 7025 Jul, Generalized anxiety disorder F41.1 and Irritable bowel syndrome with diarrhea K58.0 [facility] [id number] [id number] Jul, Generalized anxiety disorder F41.1 [facility] [id number] [place] [address] [id number] Jun, Generalized anxiety disorder F41.1 [facility] [id number] [address]- 8774 May, [facility] [address] [id number] May, Generalized anxiety disorder F41.1 ; Irritable bowel syndrome with diarrhea K58.0 and Coarse tremors G25.2 [facility] [address] [address]- 3808 April, [facility] [id number] [address]- 6058 April, [facility] [address] [address]- 5231 April, [facility] [address] [address] 5003 Mar, [facility] [address] [id number] Mar, Severe episode of recurrent major depressive disorder, without psychotic features F33.2 and Pain in left hip M25.552 [facility] [id number] [place] [address] 92502- 3385 Mar, [place] [id number] [place] [address] 10506- 6854 Mar, [facility] [id number] [place] [address] 62225- 0194 Mar, [place] [address] 86299- 7765 Mar, Pain in right hip M25.551 and Self-care deficit in patient living alone R46.89 [facility] [address] 88882 -0980 Jan, Other chronic pain G89.29 ; Pain in left hip M25.552 and Slow transit constipation K59.01 [place] [id number] [place] [address] 47716- 3090 Jan, [place] [id number] [place] [address] 20574- 8845 Dec, Other depression F32.89 ; Constipation, unspecified constipation type K59.00 and Insomnia, unspecified type G47.00 [place] [id number] [place] [address] 48924- 2533 Nov, Reactive depression F32.9 ; Chronic idiopathic constipation K59.04 ; Generalized anxiety disorder F41.1 ; Coarse tremors G25.2 ; Gastroesophageal reflux disease without esophagitis K21.9 ; Dysthymic disorder F34.1 ; Vitamin deficiency, unspecified E56.9 and Primary insomnia F51.01 [place] [id number] [place] [address] 21892- 0321 Nov, [place] [id number] [place] [address] 92427- 2974 Nov, [place] [address] 48977- 7779 Nov, [facility] [id number] [place] [address] 73860- 6722 Nov, Reactive depression F32.9 ; Essential hypertension I10 ; Generalized anxiety disorder F41.1 ; Atherosclerotic heart disease of [place] 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 ; Pain in right hip M25.551 ; Other chronic pain G89.29 ; Chronic idiopathic constipation K59.04 ; Primary insomnia F51.01 ; Coarse tremors G25.2 ; Gastroesophageal reflux disease without esophagitis K21.9 ; Iron deficiency anemia secondary to inadequate dietary iron intake D50.8 and Vitamin deficiency, unspecified E56.9 [place] [address] 80783- 7174 Oct, [place] [address] 96348- 6106 Oct, [place] [address] 32306- 1198 Oct, [place] [address] 10106- 5693 16 Oct, 2016 Generalized anxiety disorder F41.1 ; Poor appetite R63.0 ; Dehydration E86.0 and Failure to thrive in adult R62.7 [place] [address] 49616- 1221 07 Oct, 2016 Generalized anxiety disorder F41.1 and Failure to thrive in adult R62.7 [place] [id number] [place] [address] 26656- 2146 Oct, [place] [address] 49084- 1901 Oct, [facility] [id number] [place] [address] 81801 -3640 Sep, Vaginal discharge N89.8 and Acute cystitis with hematuria N30.01 [place] [address] 70720- 8355 Sep, [facility] [address] [place] [address] 92442- 1988 Sep, [facility] [id number] [place] [address] 25725- 9724 Sep, Dysthymic disorder F34.1 ; Acute vaginitis N76.0 ; Dysuria R30.0 and Vaginal yeast infection B37.3 [place] [id number] [place] [address] 57284- 6419 Aug, [facility] [id number] [place] [address] 41240- 3571 Aug, [facility] [id number] [place] [address] 19930 -5389 Aug, Foul smelling urine R82.90 ; Rapid heart rate R00.0 and Flatulence R14.3 [place] [id number] [place] [address] 52853- 0123 Aug, [place] [id number] [place] [address] 12887- 5988 Jul, Constipation, unspecified constipation type K59.00 ; Weak R53.1 ; Poor appetite R63.0 ; Coronary artery disease involving [place] heart without angina pectoris, unspecified vessel or lesion type I25.10 ; Fatigue, unspecified type R53.83 ; Urinary incontinence, unspecified type R32 and Insomnia, unspecified type G47.00 [place] [address] [place] [address] 89156- 9260 Jul, [facility] [id number] [place] [address] 34639- 3821 Jun, Dysuria R30.0 [place] [id number] [place] [address] 52400- 4965 Jun, [facility] [id number] [place] [address] 40944- 8665 Jun, Urinary tract infection, site not specified N39.0 ; Acute vaginitis N76.0 and Diarrhea, unspecified type R19.7 [facility] [id number] [place] [address] 66766- 9195 May, [facility] [id number] [place] [address] 29482- 3019 April, [facility] [id number] [place] [address] [id number] April, Encounter for dental examination Z01.20 [facility] [address] 58672- 2945 April, [facility] [address] 88420- 0036 April, Tremor R25.1 and Episodic tension-type headache, not intractable G44.219 [facility] [id number] [place] [address] 86545- 4833 Mar, [facility] [id number] [place] [address] 58029- 3556 Jan, Mood disorder F39 [facility] [id number] [place] [address] 16243 -1131 Jan, [facility] [id number] [place] [address] 57157- 0026 Jan, [facility] [id number] [place] [address] 47459- 5613 Jan, [facility] [id number] [place] [address] 51494- 8921 Jan, [facility] [id number] [place] [address] 08976- 1735 Jan, [facility] [id number] [place] [address] 54641- 1471 Jan, [facility] [id number] [place] [address] 18710 -1952 Dec, Acute diarrhea R19.7 [facility] [id number] [place] [address] 17697- 2837 Dec, [facility] [id number] [place] [address] 69585- 1839 Dec, [facility] [address] 52374- 8280 Dec, [facility] [address] 04581 -1238 Dec, N&V (nausea and vomiting) R11.2 [facility] [address] 83730- 3375 Dec, Generalized anxiety disorder F41.1 [facility] [address] 83338- 3199 Dec, Generalized anxiety disorder F41.1 [facility] [address] 19426- 0852 Nov, Post concussion syndrome F07.81 [facility] [address] 09465- 0670 Nov, Generalized anxiety disorder F41.1 [facility] [id number] [place] [address] 31715- 6359 Nov, [facility] [address] 43445- 3206 Nov, Generalized anxiety disorder F41.1 [facility] [id number] [place] [address] [id number] Oct, Dental caries K02.9 [facility] [address] 83327- 2626 Oct, [facility] [id number] [place] [address] [id number] Oct, Dental examination Z01.20 [facility] [address] [id number] Oct, Encounter for dental examination Z01.20 [place] [id number] [place] [address] 88374- 5884 Oct, CAD (coronary artery disease) I25.10 [facility] [id number] [place] [address] 10800- 1264 Sep, Generalized anxiety disorder F41.1 [place] [address] 21036- 8583 Sep, [place] [id number] [place] [address] 37929- 3780 Sep, Rash and other nonspecific skin eruption R21 and Yeast vaginitis B37.3 [place] [id number] [place] [address] 24778- 7573 Sep, Generalized anxiety disorder F41.1 [place] [address] 31678- 6764 Aug, Insect bites 919.4 and Hemorrhoids 455.6 [place] [id number] [place] [address] 82449- 0676 Aug, Generalized anxiety disorder 300.02 [place] [id number] [place] [address] 17130- 6531 Aug, [facility] [id number] [place] [address] 84412- 6208 Aug, [facility] [id number] [place] [address] 06685- 2532 Aug, Generalized anxiety disorder 300.02 ; No condition on Lucan II V71.09 ; Heart problem 429.9 and Hypertension 401.9 [facility] [id number] [place] [address] 35095- 0245 Aug, [facility] [id number] [place] [address] 87489- 2621 Jul, [facility] [id number] [address]- 3152 Jul, [facility] [address] [address]- 8058 Jul, [facility] [address] [address]- 0737 Jul, [facility] [address] [place] [address] 33779- 7698 Jul, Rash 782.1 [facility] [address] [place] [address] 20905- 7006 Jul, UTI (urinary tract infection) 599.0 [facility] [address] [place] [address] 67956- 4871 Jul, [facility] [address] [place] [address] 95675- 7055 Jun, Dysthymia 300.4 and Anxiety 300.00 [facility] [address] [address]- 2644 Jun, 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 [facility] [address] [address]- 9686 May, [facility] [address] [address]- 1776 May, [facility] [address] [address]- 4749 May, Unspecified breast screening V76.10 [facility] [address] [id number] May, Dental examination V72.2 [facility] [address] [address]- 0941 April, [facility] [address] [address]- 7939 April, [facility] [address] [place] [address] [id number] April, Dental examination V72.2 [facility] [address] [id number] [id number] April, Dental examination V72.2 [facility] [address] [id number] [place] [address] 2546 14 Mar, 2015 [facility] [address] [id number] [place] [address] Mar, [facility] [address] [id number] [place] [address] 25 Jan, 2015 [facility] [address] [id number] [place] [address] 25 Jan, 2015 [facility] [address] [id number] [place] [address] 18 Jan, 2015 [facility] [address] [id number] [place] [address] 18 Jan, 2015 [facility] [address] [id number] [address] 16 Jan, 2015 [facility] [address] [id number] [place] [address] 16 Jan, 2015 [facility] [address] [id number] [address] 13 Jan, 2015 [facility] [address] [id number] [place] [address] 13 Jan, 2015 [facility] [address] [id number] [address] 11 Jan, 2015 [facility] [address] [id number] [place] [address] 11 Jan, 2015 [facility] [address] [id number] [place] [address] 11 Jan, 2015 [facility] [address] [id number] [address] Jan, [facility] [place] [facility] [address] [id number] [place] [address] Jan, [facility] [place] [facility] [address] [id number] [place] [address] Jan, [facility] [place] [facility] [address] [id number] [place] [address] Jan, [facility] [place] [facility] [address] [id number] [place] [address] Jan, [facility] [place] [facility] [address] [id number] [place] [address] Jan, [facility] [place] [facility] [address] [id number] [place] [address] Jan, [facility] [place] [facility] [address] [id number] [place] [address] Jan, [facility] [place] [facility] [address] [id number] [place] [address] Jan, [facility] [place] [facility] [address] [id number] [place] [address] Jan, [facility] [place] [facility] [address] [id number] [place] [address] Jan, [facility] [place] [facility] [address] [id number] [place] [address] Dec, [facility] [place] [facility] [address] [id number] [place] [address] Dec, [facility] [place] [facility] [address] [id number] [place] [address] Dec, [facility] [place] [facility] [address] [id number] [place] [address] 2147 Dec, [facility] [place] [facility] [address] [id number] [place] [address] 6069 Nov, [facility] [place] [facility] [address] [id number] [place] [address]- 8514 Nov, [facility] [place] [facility] [address] [id number] [place] [address] 1633 Nov, [facility] [place] [facility] [address] [id number] [place] [address] 9[address] Nov, [facility] [place] [facility] [address] [id number] [place] [address]- 1878 Nov, [facility] [place] [facility] [address] [id number] [place] [address] 0025 Nov, [facility] [place] [facility] [address] [id number] [place] [address] 5626 Nov, [facility] [place] [facility] [address] [id number] [place] [address] 2057 Oct, [facility] [place] [facility] [address] [id number] [place] [address]- 9695 Oct, [facility] [place] [facility] [address] [id number] [place] [address] 69[address] Oct, [facility] [place] [facility] [address] [id number] [place] [address]- 9956 Oct, [facility] [place] [facility] [address] [id number] [place] [address] 8[address] Oct, [facility] [place] [facility] [address] [id number] [place] [address] 9140 Oct, [facility] [place] [facility] [address] [id number] [place] [address]- 7473 Oct, [facility] [place] [facility] [address] [id number] [place] [address]- 7053 Oct, [facility] [place] [facility] [address] [id number] [place] [address]- 4935 Oct, [facility] [place] [facility] [address] [id number] [place] [address]- 0289 Oct, [facility] [place] [facility] [address] [id number] [place] [address]- 3980 Oct, [facility] [place] [facility] [address] [id number] [place] [address]- 2179 Oct, [facility] [place] [facility] [address] [id number] [place] [address]- 8316 Sep, [facility] [place] [facility] [address] [id number] [place] [address]- 5322 Sep, [facility] [place] [facility] [address] [id number] [place] [address]- 3685 Sep, [facility] [place] [facility] [address] [id number] [place] [address]- 3331 Sep, [facility] [place] [facility] [address] [id number] [place] [address]- 5824 Jul, [facility] [place] [facility] [address] [id number] [place] [address]- 6004 Jul, [facility] [place] [facility] [address] [id number] [place] [address]- 2967 Jul, [facility] [place] [facility] [address] [id number] [place] [address]- 4435 Jul, [facility] [place] [facility] [address] [id number] [place] [address]- 2408 Jun, [facility] [place] [facility] [address] [id number] [address] Jun, [facility] [place] [facility] [address] [id number] [place] [address]- 7227 Jun, [facility] [place] [facility] [address] [id number] [place] [address]- 2402 Jun, [facility] [place] [facility] [address] [id number] [place] [address] 9851 May, [facility] [place] [facility] [address] [id number] [address] May, [facility] [address] [id number] [place] [address] 8[address] April, [facility] [place] [facility] [address] [id number] [place] [address] 7795 April, [facility] [address] [id number] [place] [address] 3480 April, [facility] [place] [facility] [address] [id number] [place] [address] 5153 April, [facility] [place] [facility] [address] [id number] [place] [address]- 8733 April, [facility] [place] [facility] [address] [id number] [place] [address]- 0044 April, [facility] [address] [id number] [place] [address] 3128 April, [facility] [place] [facility] [address] [id number] [place] [address] 2673 April, [facility] [place] [facility] [address] [id number] [place] [address]- 1590 April, [facility] [place] [facility] [address] [id number] [place] [address] 0314 Mar, [facility] [place] [facility] [address] [id number] [place] [address]- 5726 Mar, [facility] [place] [facility] [address] [id number] [place] [address]- 7517 Mar, [facility] [place] [facility] [address] [id number] [place] [address]- 5935 Mar, [facility] [place] [facility] [address] [id number] [place] [address] 1917 Jan, [facility] [place] [facility] [address] [id number] [place] [address]- 9130 Jan, [facility] [place] [facility] [address] [id number] [place] [address]- 7674 11 Jan, 2014 [facility] [place] [facility] [address] [id number] [place] [address]- 4241 Jan, [facility] [place] [facility] [address] [id number] [place] [address]- 0664 Jan, [facility] [place] [facility] [address] [id number] [place] [address]- 4989 Jan, [facility] [place] [facility] [address] [id number] [place] [address]- 7176 Jan, [facility] [place] [facility] [address] [id number] [place] [address]- 3256 Jan, [facility] [place] [facility] [address] [id number] [place] [address]- 7602 Jan, [facility] [place] [facility] [address] [id number] [place] [address]- 1075 Jan, [facility] [place] [facility] [address] [id number] [place] [address]- 3858 Jan, [facility] [place] [facility] [address] [id number] [place] [address]- 6338 Jan, [facility] [place] [facility] [address] [id number] [place] [address]- 7632 Dec, [facility] [place] [facility] [address] [id number] [place] [address]- 4224 Dec, [facility] [place] [facility] [address] [id number] [place] [address]- 3994 Dec, [facility] [place] [facility] [address] [id number] [place] [address]- 3110 Dec, [facility] [place] [facility] [address] [id number] [place] [address]- 7057 Nov, [facility] [place] [facility] [address] [id number] [place] [address]- 2546 Nov, [facility] [place] [facility] [address] [id number] [place] [address] Nov, [facility] [place] [facility] [address] [id number] [place] [address]- 5461 Nov, [facility] [place] [facility] [address] [id number] [place] [address]- 3931 Oct, [facility] [place] [facility] [address] [id number] [place] [address]- 5366 Oct, [facility] [place] [facility] [address] [id number] [place] [address]- 7498 Sep, [facility] [place] [facility] [address] [id number] [place] [address] Sep, [facility] [place] [facility] [address] [id number] [place] [address]- 7493 Jul, [facility] [place] [facility] [address] [id number] [place] [address]- 7494 Jul, [facility] [place] [facility] [address] [id number] [place] [address]- 5984 Jun, [facility] [place] [facility] [address] [id number] [place] [address]- 1820 Jun, [facility] [place] [facility] [address] [id number] [place] [address]- 7474 Jun, [facility] [place] [facility] [address] [id number] [place] [address]- 9054 May, [facility] [place] [facility] [address] [id number] [place] [address]- 8656 May, [facility] [place] [facility] [address] [id number] [place] [address]- 3010 May, [facility] [place] [facility] [address] [id number] [place] [address]- 6741 May, [facility] [place] [facility] [address] [id number] [place] [address]- 2546 May, [facility] [address] [id number] [place] [address]- 1586 April, [facility] [address] [id number] [place] [address]- 2546 April, [facility] [address] [id number] [place] [address]- 3516 April, [facility] [address] [id number] [place] [address]- 2546 April, [facility] [address] [id number] [place] [address]- 1686 April, [facility] [address] [id number] [place] [address]- 7216 April, [facility] [address] [id number] [place] [address]- 3436 Mar, [facility] [address] [id number] [place] [address]- 7173 Mar, [facility] [address] [id number] [place] [address]- 9640 Jan, [facility] [address] [id number] [place] [address]- 4010 Jan, [facility] [address] [id number] [place] [address]- 2546 Jan, [facility] [address] [id number] [place] [address]- 2546 Jan, [facility] [address] [id number] [place] [address]- 8186 Jan, [facility] [address] [id number] [place] [address]- 2546 Jan, [facility] [address] [id number] [place] [address]- 6231 05 Jan, 2013 [facility] [address] [id number] [place] [address]- 9389 04 Jan, 2013 [facility] [place] [facility] [address] [id number] [place] [address]- 0846 Jan, [facility] [place] [facility] [address] [id number] [place] [address]- 0576 Jan, [facility] [place] [facility] [address] [id number] [place] [address]- 8619 Jan, [facility] [place] [facility] [address] [id number] [place] [address]- 3818 Dec, [facility] [place] [facility] [address] [id number] [place] [address]- 3860 Nov, [facility] [place] [facility] [address] [id number] [place] [address]- 9842 Nov, [facility] [place] [facility] [address] [id number] [place] [address]- 8180 Nov, [facility] [place] [facility] [address] [id number] [place] [address]- 3911 Nov, [facility] [place] [facility] [address] [id number] [place] [address]- 9209 Nov, [facility] [place] [facility] [address] [id number] [place] [address]- 3154 Nov, [facility] [place] [facility] [address] [id number] [place] [address]- 4579 Nov, [facility] [place] [facility] [address] [id number] [place] [address]- 9606 Nov, [facility] [place] [facility] [address] [id number] [place] [address]- 9206 Nov, [facility] [place] [facility] [address] [id number] [place] [address]- 8295 Nov, [facility] [place] [facility] [address] [id number] [place] [address]- 9747 18 Nov, 2012 [facility] [address] [id number] [place] [address]- 4086 Nov, [facility] [place] [facility] [address] [id number] [place] [address]- 4566 Nov, [facility] [address] [id number] [place] [address]- 4946 17 Oct, 2012 [facility] [place] [facility] [address] [id number] [place] [address] 2545 Oct, [facility] [id number] [place] [address], [place] [address]- 4198 Oct, [facility] [place] [facility] [address] [facility] [id number] [place] [address]- 5058 Sep, [facility] [place] [facility] [address] [facility] [id number] [place] [address]- 2922 Sep, [facility] [place] [facility] [address] [id number] [place] [address]- 7471 Sep, [facility] [place] [facility] [address] [id number] [place] [address]- 3005 10 Sep, 2012 [facility] [place] [facility] [address] [facility] [id number] [place] [address]- 7490 27 Aug, 2012 [facility] [place] [facility] [address] [id number] [place] [address]- 3422 20 Aug, 2012 [facility] [place] [facility] [address] [id number] [place] [address]- 3127 24 Jul, 2012 [facility] [place] [facility] [address] [id number] [place] [address]- 8420 27 May, 2012 [facility] [place] [facility] [address] [facility] [id number] [place] [address]- 2546 14 May, 2012 [facility] [place] [facility] [address] [facility] [id number] [place] [address]- 3460 14 May, 2012 [facility] [address] [id number] [place] [address]- 8024 April, [facility] [place] [facility] [address] [id number] [place] [address]- 2666 Mar, [facility] [place] [facility] [address] [id number] [place] [address]- 3826 Mar, [facility] [place] [facility] [address] [id number] [place] [address]- 2326 Mar, [facility] [address] [id number] [place] [address]- 6807 Jan, [facility] [place] [facility] [address] [id number] [place] [address]- 4506 Jan, [facility] [place] [facility] [address] [id number] [place] [address]- 7110 Jan, [facility] [address] [id number] [place] [address]- 1862 Dec, [facility] [place] [facility] [address] [id number] [place] [address]- 7217 Dec, [facility] [place] [facility] [address] [id number] [place] [address]- 1914 Dec, [facility] [place] [facility] [address] [id number] [place] [address]- 4796 Dec, [facility] [place] [facility] [address] [id number] [address]- 4608 Nov, [facility] [place] [facility] [address] [id number] [place] [address]- 5556 Nov, [facility] [place] [facility] [address] [id number] [place] [address]- 1026 Nov, [facility] [place] [facility] [address] [id number] [address]- 2006 Oct, [facility] [place] [facility] [address] [id number] [place] [address]- 4855 31 Sep, 2011 [facility] [address] [id number] [place] [address]- 9002 26 Sep, 2011 [facility] [place] [facility] [address] [id number] [place] [address]- 4156 13 Sep, 2011 [facility] [place] [facility] [address] [id number] [place] [address]- 6756 15 Nov, 2010 [facility] [place] [facility] [address] [id number] [place] [address]- 4527 23 Oct, 2010 [facility] [place] [facility] [address] [id number] [place] [address]- 2332 19 Oct, 2010 [facility] [place] [facility] [address] [id number] [place] [address]- 9272 18 Oct, 2010 [facility] [place] [facility] [address] [facility] [id number] [place] [address]- 1371 16 Oct, 2010 [facility] [place] [facility] [address] [facility] [address] [id number] [place] [address]- 4932 11 Sep, 2010 [facility] [place] [facility] [address] [facility] [address] [id number] [place] [address]- 4484 April, [facility] [place] [facility] [address] [facility] [address] [id number] [place] [address]- 4598 29 Nov, 2009 [facility] [place] [facility] [address] [id number] [place] [address]- 0176 24 Nov, 2009 [facility] [place] [facility] [address] [id number] [place] [address]- 254 22 Nov, 2009 [facility] [place] [facility] [address] [id number] [place] [address]- 4804 10 Nov, 2009 [facility] [place] [facility] [address] [facility] [address] [id number] [place] [address]- 254 10 Nov, 2009 [facility] [place] [facility] [address] [facility] [address] [id number] [place] [address]- 5128 19 Oct, 2009 [facility] [place] [facility] [address] [facility] [address] [id number] [place] [address]- 5536 Oct, [facility] [address] [facility] [address] [id number] [address]- 9624 Sep, [facility] [address] [facility] [address] [id number] [place] [address]- 8676 Jan, IMMUNIZATIONS No Known Immunizations SOCIAL HISTORY Never Assessed REASON FOR VISIT Routine visit PLAN OF CARE Activity Details Follow Up prn Reason: VITAL SIGNS MEDICATIONS Medication Instructions Dosage Frequency Start Date End Date Duration Status Xifaxan 550 MG Orally Three times a day 1 tablet 8h Aug, Aug, 14 days Active Risperidone 2 MG Orally 2 times a day 1 tablet 12h Active Folic Acid 1 MG Orally Once a day at bedime 1 tablet Active Aspir-81 81 MG Orally Once a day 1 tablet 24h Nov, Active Isopto Tears 0.5 % Ophthalmic every 6 hours as needed for PRN- dry eyes 1 drop in both eyes Active Zantac 150 mg Orally twice a day 1 tablet 12h Jun, 30 day(s) Active Clonazepam 0.5 MG Orally Once a day at bedtime 1 tablet at bedtime 28 days Active Mirtazapine 15 mg Orally Once a day 1 tablet at bedtime 24h Active Pravastatin Sodium 20 mg Orally Once a day 1 tablet 24h Active Tylenol Extra Strength 500 mg Orally every 6 hrs 1 tablet as needed 6h 15 Jan, 2018 Active Milk of Magnesia 7.75 % Orally once daily 30 ml as needed 24h Active Melatonin 3 MG Orally Once a day 1 tablet at bedtime as needed with food 24h Active Vitamin D-3 1000 UNIT Orally Once a day at bedtime 2 capsules Active Gabapentin 100 mg Orally 2 times a day 1 capsule 12h Jun, Active Rivastigmine 4.6 MG/24HR APPLY ONE PATCH EXTERNALLY ONCE DAILY 30 Active RESULTS No Results PROCEDURES Procedure Date Ordered Result Body Site Minor complication (15 mins) Aug 07, 2018 INSTRUCTIONS MEDICATIONS ADMINISTERED No Known Medications MEDICAL (GENERAL) HISTORY Type Description Date Medical History Hypertension Medical History Heart disease CABG X3 Stress test 07/2015 Medical History Gastric ulcer Medical History Hyperlipidemia Medical History Headache syndrome Medical History Psychiatric disorders-depression/racing thoughts Medical History Depression Medical History At [facility] 04/2016 Started on Eliquis Medical History Anemia 04/2016 postsurgical hip fx Surgical History right hip replacement w/ Dr. Bruce 2011 Surgical History triple bypass surgery 2003 Surgical History S/P left hip IM [facility] (Intertrechanteric hip fx) 04/28/16 Hospitalization History surgeries Hospitalization History Hypertension Hospitalization History ER for a concussion 11/24/15 Hospitalization History Intertrechanteric hip fx 04/27/16 Hospitalization History [facility] (inpatient [facility] 2 times) Hx of 3 inpatient psych treatments in past in [place] oct 2016 [facility]
--- OUTSIDE RECORDS SUMMARY | 2019-02-11 14:39 | XMS REPORT ---
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 Name Role Phone WOLF AGUIRRE Unavailable PROBLEMS Type Condition ICD9-CM Code BJH77-CD Code Onset Dates Condition Status SNOMED Code Problem Sundowning F05 Active 464947076 Problem Constipation, unspecified constipation type K59.00 Active 83322669 Problem Reactive depression F32.9 Active 25874957 Problem Vascular dementia with behavior disturbance F01.51 Active 408768552109000 Problem Insomnia, unspecified type G47.00 Active 977183923 Problem Generalized anxiety disorder F41.1 Active 05524081 Problem Other chronic pain G89.29 Active 30727215 Problem Severe episode of recurrent major depressive disorder, without psychotic features F33.2 Active 09304039 Problem Slow transit constipation K59.01 Active 21018848 Problem 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 Active 699985585 Problem Obsessive thinking F42.8 Active 87977400 Problem Failure to thrive in adult R62.7 Active 412904082 Problem Dysthymic disorder F34.1 Active 59157402 Problem Hypertension I10 Active 81927423 Problem Mood disorder F39 Active 42296876 Problem Irritable bowel syndrome with diarrhea K58.0 Active 135728770 Problem Oropharyngeal dysphagia R13.12 Active 50717795 Problem 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 Active 35426949 Problem Other chronic pain G89.29 Active 46620244 Problem Primary insomnia F51.01 Active 7125077 Problem Poor appetite R63.0 Active 06465529 Problem Atherosclerotic heart disease of [place] 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 Active 027873395163548 Problem Iron deficiency anemia secondary to inadequate dietary iron intake D50.8 Active 517168864 Problem Coarse tremors G25.2 Active 50744569 Problem Gastroesophageal reflux disease without esophagitis K21.9 Active 526095200 Problem Essential hypertension I10 Active 07598211 ALLERGIES No Information ENCOUNTERS Encounter Location Date Diagnosis [facility] [address] [address] Aug, [facility] [id number] [place] [address] 43240- 5629 Aug, [facility] [id number] [place] [address] 10963- 8055 Aug, Positive urine drug screen R82.5 [facility] [address] [place] [id number] Aug, [facility] [id number] [place] [address] 49754- 8003 Aug, [facility] [id number] [place] [address] 79328- 4094 Aug, [facility] [id number] [place] [address] 26679- 1137 Aug, Irritable bowel syndrome with diarrhea K58.0 [facility] [id number] [place] [address] 89531- 1073 Aug, [facility] [id number] [place] [address] 11830- 5173 Aug, Obsessive thinking F42.8 ; Insomnia, unspecified type G47.00 and Other chronic pain G89.29 [facility] [address] [place] [id number] Aug, Obsessive thinking F42.8 ; Irritable bowel syndrome with diarrhea K58.0 ; Pain in right foot M79.671 ; Pain of left foot M79.672 and Gastroesophageal reflux disease without esophagitis K21.9 [facility] [id number] [place] [address] 70995- 1499 Aug, [facility] [id number] [place] [address] 57479- 2475 Jul, [facility] [id number] [place] [address] 71923- 1588 Jun, [facility] [address] [address] Jun, [facility] [address] [place] [id number] Jun, Left lower quadrant pain R10.32 and Left leg pain M79.605 [facility] [id number] [place] [address] 35771- 9631 Jun, [facility] [address] [place] [id number] Jun, Pain in left hip M25.552 ; Pain in right hip M25.551 and Primary insomnia F51.01 [facility] [id number] [place] [address] 57429- 4026 Jun, [facility] [address] [place] [id number] May, [facility] [id number] [place] [address] 29880- 9972 May, [facility] [address] [place] [address] 80288- 9096 May, [facility] [address] [place] [id number] May, Mood disorder F39 [facility] [address] [address] 3897 May, [facility] [id number] [place] [address] 60359- 2649 April, [facility] [address] [place] [id number] April, Generalized anxiety disorder F41.1 ; Obsessive thinking F42.8 and Insomnia , unspecified type G47.00 [facility] [address] [address] 6204 April, [facility] [address] [address] 4497 April, Rash of face R21 [facility] [address] [address] 9890 Mar, [facility] [id number] [place] [address] 59293- 6249 Mar, [facility] [address] [place] [address] [id number]- 3196 Mar, [facility] [id number] [place] [address] 93254- 5378 Jan, [facility] [address] [place] [address] 04316- 9984 Jan, [facility] [address] [id number] Jan, Constipation, unspecified constipation type K59.00 and Other chronic pain G89.29 [facility] [id number] [place] [address] 28373- 5124 Jan, [facility] [address] [id number] Jan, Obsessive thinking F42.8 and Coarse tremors G25.2 [facility] [id number] [place] [address] [id number] Jan, [facility] [id number] [place] [address] [id number] Jan, [facility] [address] [id number] Jan, Generalized anxiety disorder F41.1 ; Obsessive thinking F42.8 ; Callus of foot L84 and 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 [facility] [address] [address] 0289 Dec, Generalized anxiety disorder F41.1 and Severe episode of recurrent major depressive disorder, without psychotic features F33.2 [facility] [address] [place] [address] 839465- 8369 Nov, [facility] [id number] [place] [address] 31067- 0318 Nov, [facility] [address] [place] [id number] Nov, Oropharyngeal dysphagia R13.12 ; Generalized anxiety disorder F41.1 and 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 [facility] [address] [address] 3617 Nov, [facility] [id number] [place] [address] [id number] Nov, [facility] [address] [place] [address] 03602- 8838 Nov, [facility] [id number] [place] [address] 28723- 7926 Nov, [facility] [id number] [place] [address] 05116- 9406 Oct, Constipation, unspecified constipation type K59.00 and Mood disorder F39 [facility] [address] [address]- 4347 Oct, [facility] [id number] [place] [address] [id number] Sep, [facility] [id number] [place] [address] [id number] Sep, [facility] [id number] [place] [address] [id number] Sep, [facility] [id number] [place] [address] [id number] Sep, [facility] [address] [place] [phone] Sep, Generalized abdominal pain R10.84 [facility] [address] [address]- 3916 Sep, [facility] [id number] [id number] Sep, Generalized anxiety disorder F41.1 and Primary insomnia F51.01 [facility] [id number] [id number] Aug, [facility] [id number] [id number] Aug, Generalized anxiety disorder F41.1 [facility] [id number] [address] 2116 Jul, [facility] [address] [place] [id number] Jul, Obsessive thinking F42.8 [facility] [id number] [address] 5200 Jul, Generalized anxiety disorder F41.1 and Irritable bowel syndrome with diarrhea K58.0 [facility] [id number] [id number] Jul, Generalized anxiety disorder F41.1 [facility] [id number] [place] [address] [id number] Jun, Generalized anxiety disorder F41.1 [facility] [id number] [address]- 5158 May, [facility] [address] [id number] May, Generalized anxiety disorder F41.1 ; Irritable bowel syndrome with diarrhea K58.0 and Coarse tremors G25.2 [facility] [address] [address]- 5966 April, [facility] [id number] [address]- 5942 April, [facility] [address] [address]- 9189 April, [facility] [address] [address] 3438 Mar, [facility] [address] [id number] Mar, Severe episode of recurrent major depressive disorder, without psychotic features F33.2 and Pain in left hip M25.552 [facility] [id number] [place] [address] 31787- 2317 Mar, [facility] [id number] [place] [address] 16062- 4979 Mar, [facility] [id number] [place] [address] 18805- 2707 Mar, [facility] [address] 88049- 6069 Mar, Pain in right hip M25.551 and Self-care deficit in patient living alone R46.89 [facility] [address] 19234 -5322 Jan, Other chronic pain G89.29 ; Pain in left hip M25.552 and Slow transit constipation K59.01 [facility] [id number] [place] [address] 00364- 4161 Jan, [facility] [id number] [place] [address] 34586- 2897 Dec, Other depression F32.89 ; Constipation, unspecified constipation type K59.00 and Insomnia, unspecified type G47.00 [facility] [id number] [place] [address] 57527- 9517 Nov, Reactive depression F32.9 ; Chronic idiopathic constipation K59.04 ; Generalized anxiety disorder F41.1 ; Coarse tremors G25.2 ; Gastroesophageal reflux disease without esophagitis K21.9 ; Dysthymic disorder F34.1 ; Vitamin deficiency, unspecified E56.9 and Primary insomnia F51.01 [facility] [id number] [place] [address] 82011- 8787 Nov, [facility] [id number] [place] [address] 33278- 8279 Nov, [facility] [address] 33343- 0272 Nov, [facility] [id number] [place] [address] 51722- 6269 Nov, Reactive depression F32.9 ; Essential hypertension I10 ; Generalized anxiety disorder F41.1 ; Atherosclerotic heart disease of [place] 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 ; Pain in right hip M25.551 ; Other chronic pain G89.29 ; Chronic idiopathic constipation K59.04 ; Primary insomnia F51.01 ; Coarse tremors G25.2 ; Gastroesophageal reflux disease without esophagitis K21.9 ; Iron deficiency anemia secondary to inadequate dietary iron intake D50.8 and Vitamin deficiency, unspecified E56.9 [facility] [address] 12231- 4083 Oct, [facility] [address] 59535- 2164 Oct, [facility] [address] 79637- 2699 Oct, [facility] [address] 47145- 6633 16 Oct, 2016 Generalized anxiety disorder F41.1 ; Poor appetite R63.0 ; Dehydration E86.0 and Failure to thrive in adult R62.7 [facility] [address] 24772- 2229 07 Oct, 2016 Generalized anxiety disorder F41.1 and Failure to thrive in adult R62.7 [facility] [id number] [place] [address] 60469- 6652 Oct, [facility] [address] 29916- 9009 Oct, [facility] [id number] [place] [address] 59154 -7787 Sep, Vaginal discharge N89.8 and Acute cystitis with hematuria N30.01 [facility] [address] 90887- 3353 Sep, [facility] [address] [place] [address] 46254- 2786 Sep, [facility] [id number] [place] [address] 00762- 9137 Sep, Dysthymic disorder F34.1 ; Acute vaginitis N76.0 ; Dysuria R30.0 and Vaginal yeast infection B37.3 [facility] [id number] [place] [address] 56817- 2697 Aug, [facility] [id number] [place] [address] 96191- 0953 Aug, [facility] [id number] [place] [address] 78520 -7349 Aug, Foul smelling urine R82.90 ; Rapid heart rate R00.0 and Flatulence R14.3 [facility] [id number] [place] [address] 96235- 6842 Aug, [facility] [id number] [place] [address] 14811- 5263 Jul, Constipation, unspecified constipation type K59.00 ; Weak R53.1 ; Poor appetite R63.0 ; Coronary artery disease involving [place] heart without angina pectoris, unspecified vessel or lesion type I25.10 ; Fatigue, unspecified type R53.83 ; Urinary incontinence, unspecified type R32 and Insomnia, unspecified type G47.00 [facility] [address] [place] [address] 99161- 3402 Jul, [facility] [id number] [place] [address] 53950- 8942 Jun, Dysuria R30.0 [facility] [id number] [place] [address] 41581- 3901 Jun, [facility] [id number] [place] [address] 26149- 2340 Jun, Urinary tract infection, site not specified N39.0 ; Acute vaginitis N76.0 and Diarrhea, unspecified type R19.7 [facility] [id number] [place] [address] 22252- 2217 May, [facility] [id number] [place] [address] 05297- 9859 April, [facility] [id number] [place] [address] [id number] April, Encounter for dental examination Z01.20 [facility] [address] 65111- 3829 April, [facility] [address] 64134- 6797 April, Tremor R25.1 and Episodic tension-type headache, not intractable G44.219 [facility] [id number] [place] [address] 67798- 0818 Mar, [facility] [id number] [place] [address] 99117- 0475 Jan, Mood disorder F39 [facility] [id number] [place] [address] 07979 -4627 Jan, [facility] [id number] [place] [address] 40480- 4646 Jan, [facility] [id number] [place] [address] 06223- 6615 Jan, [facility] [id number] [place] [address] 08318- 5562 Jan, [facility] [id number] [place] [address] 02250- 5981 Jan, [facility] [id number] [place] [address] 35664- 2403 Jan, [facility] [id number] [place] [address] 55510 -3114 Dec, Acute diarrhea R19.7 [facility] [id number] [place] [address] 85542- 5950 Dec, [facility] [id number] [place] [address] 73292- 2921 Dec, [facility] [address] 40084- 1419 Dec, [facility] [address] 08412 -6603 Dec, N&V (nausea and vomiting) R11.2 [facility] [address] 20567- 2893 Dec, Generalized anxiety disorder F41.1 [facility] [address] 26945- 7764 Dec, Generalized anxiety disorder F41.1 [facility] [address] 35939- 8375 Nov, Post concussion syndrome F07.81 [facility] [address] 74382- 6539 Nov, Generalized anxiety disorder F41.1 [facility] [id number] [place] [address] 90010- 7422 Nov, [facility] [address] 23528- 8744 Nov, Generalized anxiety disorder F41.1 [facility] [id number] [place] [address] [id number] Oct, Dental caries K02.9 [facility] [address] 75934- 2020 Oct, [facility] [id number] [place] [address] [id number] Oct, Dental examination Z01.20 [facility] [address] [id number] Oct, Encounter for dental examination Z01.20 [facility] [id number] [place] [address] 47049- 8978 Oct, CAD (coronary artery disease) I25.10 [facility] [id number] [place] [address] 36425- 9894 Sep, Generalized anxiety disorder F41.1 [facility] [address] 30648- 1424 Sep, [facility] [id number] [place] [address] 73013- 8973 Sep, Rash and other nonspecific skin eruption R21 and Yeast vaginitis B37.3 [facility] [id number] [place] [address] 73600- 0863 Sep, Generalized anxiety disorder F41.1 [facility] [address] 93609- 3663 Aug, Insect bites 919.4 and Hemorrhoids 455.6 [place] [id number] [place] [address] 73642- 9569 Aug, Generalized anxiety disorder 300.02 [facility] [id number] [place] [address] 70081- 4577 Aug, [facility] [id number] [place] [address] 70438- 5457 Aug, [facility] [id number] [place] [address] 67762- 7866 Aug, Generalized anxiety disorder 300.02 ; No condition on Maud II V71.09 ; Heart problem 429.9 and Hypertension 401.9 [facility] [id number] [place] [address] 71239- 2148 Aug, [facility] [id number] [place] [address] 41731- 3328 Jul, [facility] [address] [address]- 9663 Jul, [facility] [address] [address]- 4829 Jul, [facility] [address] [address]- 4531 Jul, [facility] [address] [place] [address] 49020- 5298 Jul, Rash 782.1 [facility] [address] [place] [address] 70031- 7852 Jul, UTI (urinary tract infection) 599.0 [facility] [address] [place] [address] 81183- 5982 Jul, [facility] [address] [place] [address] 20394- 9094 Jun, Dysthymia 300.4 and Anxiety 300.00 [facility] [address] [address]- 1463 Jun, 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 [facility] [address] [address]- 6929 May, [facility] [address] [address]- 4547 May, [facility] [address] [address]- 5634 May, Unspecified breast screening V76.10 [facility] [address] [id number] May, Dental examination V72.2 [facility] [address] [address]- 7681 April, [facility] [address] [address]- 2812 April, [facility] [address] [place] [address] [id number] April, Dental examination V72.2 [facility] [address] [id number] [id number] April, Dental examination V72.2 [facility] [address] [id number] [place] [address] 2546 14 Mar, 2015 [facility] [address] [id number] [place] [address]- 1566 Mar, [facility] [address] [id number] [place] [address] 2546 25 Jan, 2015 [facility] [address] [id number] [place] [address]- 1716 25 Jan, 2015 [facility] [address] [id number] [place] [address]- 1936 18 Jan, 2015 [facility] [address] [id number] [place] [address]- 4526 18 Jan, 2015 [facility] [address] [id number] [address] 16 Jan, 2015 [facility] [address] [id number] [place] [address] 16 Jan, 2015 [facility] [address] [id number], [place] [address] 13 Jan, 2015 [facility] [address] [id number] [place] [address] 13 Jan, 2015 [facility] [address] [id number][place] [address] 11 Jan, 2015 [facility] [address] [id number] [place] [address] 11 Jan, 2015 [facility] [address] [id number] [place] [address] 11 Jan, 2015 [facility] [address] [id number][place] [address] Jan, [facility] [place] [facility] [address] [id number] [place] [address] Jan, [facility] [place] [facility] [address] [id number] [place] [address] Jan, [facility] [place] [facility] [address] [id number] [place] [address] Jan, [facility] [place] [facility] [address] [id number] [place] [address] Jan, [facility] [place] [facility] [address] [id number] [place] [address] Jan, [facility] [place] [facility] [address] [id number] [place] [address] Jan, [facility] [place] [facility] [address] [id number] [place] [address] Jan, [facility] [place] [facility] [address] [id number] [place] [address] Jan, [facility] [place] [facility] [address] [id number] [place] [address] Jan, [facility] [place] [facility] [address] [id number] [place] [address] Jan, [facility] [place] [facility] [address] [id number] [place] [address] Dec, [facility] [place] [facility] [address] [id number] [place] [address] Dec, [facility] [place] [facility] [address] [id number] [place] [address] Dec, [facility] [place] [facility] [address] [id number] [place] [address] Dec, [facility] [place] [facility] [address] [id number] [place] [address] Nov, [facility] [place] [facility] [address] [id number] [place] [address] Nov, [facility] [place] [facility] [address] [address] [id number] [place] [address] Nov, [facility] [place] [facility] [address] [id number] [place] [address] Nov, [facility] [place] [facility] [address] [id number] [place] [address] Nov, [facility] [place] [facility] [address] [id number] [place] [address] Nov, [facility] [place] [facility] [address] [id number] [place] [address] 2918 Nov, [facility] [place] [facility] [address] [id number] [place] [address]43 Oct, [facility] [place] [facility] [address] [id number] [place] [address] 0[address] Oct, [facility] [place] [facility] [address] [id number] [place] [address] 7841 Oct, [facility] [place] [facility] [address] [id number] [place] [address] 8008 Oct, [facility] [place] [facility] [address] [id number] [place] [address] 7087 Oct, [facility] [place] [facility] [address] [id number] [place] [address] 4174 Oct, [facility] [place] [facility] [address] [id number] [place] [address] 9174 Oct, [facility] [place] [facility] [address] [id number] [place] [address] 0265 Oct, [facility] [place] [facility] [address] [id number] [place] [address] 5154 Oct, [facility] [place] [facility] [address] [id number] [place] [address] 6773 Oct, [facility] [place] [facility] [address] [id number] [place] [address] 2380 Oct, [facility] [place] [facility] [address] [id number] [place] [address]- 2707 Oct, [facility] [place] [facility] [address] [id number] [place] [address] 9127 Sep, [facility] [place] [facility] [address] [id number] [place] [address]- 9527 Sep, [facility] [place] [facility] [address] [id number] [place] [address]- 9340 Sep, [facility] [place] [facility] [address] [id number] [place] [address]- 0298 Sep, [facility] [place] [facility] [address] [id number] [place] [address]- 6899 Jul, [facility] [place] [facility] [address] [id number] [place] [address]- 9827 Jul, [facility] [place] [facility] [address] [id number] [place] [address]- 4048 Jul, [facility] [place] [facility] [address] [id number] [place] [address]- 6691 Jul, [facility] [place] [facility] [address] [id number] [place] [address]- 7284 Jun, [facility] [place] [facility] [address] [id number] [address]- 1468 Jun, [facility] [place] [facility] [address] [id number] [place] [address]- 2367 Jun, [facility] [place] [facility] [address] [id number] [place] [address]- 9997 Jun, [facility] [place] [facility] [address] [id number] [place] [address]- 6156 May, [facility] [place] [facility] [address] [id number], [place] [address] May, [facility] [address] [id number] [place] [address] 6720 April, [facility] [place] [facility] [address] [id number] [place] [address]- 3830 April, [facility] [address] [id number] [place] [address]- 9506 April, [facility] [place] [facility] [address] [id number] [place] [address]- 9980 April, [facility] [place] [facility] [address] [id number] [place] [address]- 8939 April, [facility] [place] [facility] [address] [id number] [place] [address] 9812 April, [facility] [address] [id number] [place] [address] 3400 April, [facility] [place] [facility] [address] [id number] [place] [address]- 2663 April, [facility] [place] [facility] [address] [id number] [place] [address] April, [facility] [place] [facility] [address] [id number] [place] [address] 3105 Mar, [facility] [place] [facility] [address] [id number] [place] [address]- 0279 Mar, [facility] [place] [facility] [address] [id number] [place] [address]- 1236 Mar, [facility] [place] [facility] [address] [id number] [place] [address]- 0969 Mar, [facility] [place] [facility] [address] [id number] [place] [address]- 0594 Jan, [facility] [place] [facility] [address] [id number] [place] [address] 6271 Jan, [facility] [place] [facility] [address] [id number] [place] [address]- 8840 11 Jan, 2014 [facility] [place] [facility] [address] [id number] [place] [address]- 3887 Jan, [facility] [place] [facility] [address] [id number] [place] [address] Jan, [facility] [place] [facility] [address] [id number] [place] [address]- 6588 Jan, [facility] [place] [facility] [address] [id number] [place] [address]- 4108 Jan, [facility] [place] [facility] [address] [id number] [place] [address]- 3082 Jan, [facility] [place] [facility] [address] [id number] [place] [address]- 0741 Jan, [facility] [place] [facility] [address] [id number] [place] [address]- 7775 Jan, [facility] [place] [facility] [address] [id number] [place] [address]- 1661 Jan, [facility] [place] [facility] [address] [id number] [place] [address]- 6227 Jan, [facility] [place] [facility] [address] [id number] [place] [address]- 2154 Dec, [facility] [place] [facility] [address] [id number] [place] [address]- 1869 Dec, [facility] [place] [facility] [address] [id number] [place] [address]- 4457 Dec, [facility] [place] [facility] [address] [id number] [place] [address]- 2736 Dec, [facility] [place] [facility] [address] [id number] [place] [address]- 2151 Nov, [facility] [place] [facility] [address] [id number] [place] [address]- 2546 Nov, [facility] [place] [facility] [address] [id number] [place] [address] Nov, [facility] [place] [facility] [address] [id number] [place] [address]- 5872 Nov, [facility] [place] [facility] [address] [id number] [place] [address]- 6930 Oct, [facility] [place] [facility] [address] [id number] [place] [address]- 3010 Oct, [facility] [place] [facility] [address] [id number] [place] [address]- 8775 Sep, [facility] [place] [facility] [address] [id number] [place] Sep, [facility] [place] [facility] [address] [id number] [place] [address]- 6503 Jul, [facility] [place] [facility] [address] [id number] [place] [address]- 7259 Jul, [facility] [place] [facility] [address] [id number] [place] [address]- 4712 Jun, [facility] [place] [facility] [address] [id number] [place] [address]- 5176 Jun, [facility] [place] [facility] [address] [id number] [place] [address]- 8694 Jun, [facility] [place] [facility] [address] [id number] [place] [address]- 5054 May, [facility] [place] [facility] [address] [id number] [place] [address]- 0463 May, [facility] [place] [facility] [address] [id number] [place] [address]- 3118 May, [facility] [place] [facility] [address] [id number] [place] [address]- 2417 May, [facility] [place] [facility] [address] [id number] [place] [address]- 2546 May, [facility] [address] [id number] [place] [address]- 5220 April, [facility] [address] [id number] [place] [address]- 2546 April, [facility] [address] [id number] [place] [address]- 3616 April, [facility] [address] [id number] [place] [address]- 2546 April, [facility] [address] [id number] [place] [address]- 9916 April, [facility] [address] [id number] [place] [address]- 2056 April, [facility] [address] [id number] [place] [address]- 2346 Mar, [facility] [address] [id number] [place] [address]- 4743 Mar, [facility] [address] [id number] [place] [address]- 7576 Jan, [facility] [address] [id number] [place] [address]- 3312 Jan, [facility] [address] [id number] [place] [address]- 2546 Jan, [facility] [address] [id number] [place] [address]- 2546 Jan, [facility] [address] [id number] [place] [address]- 5176 Jan, [facility] [address] [id number] [place] [address]- 2546 Jan, [facility] [address] [id number] [place] [address]- 9982 05 Jan, 2013 [facility] [address] [id number] [place] [address]- 0012 04 Jan, 2013 [facility] [place] [facility] [address] [id number] [place] [address]- 4856 Jan, [facility] [place] [facility] [address] [id number] [place] [address]- 9616 Jan, [facility] [place] [facility] [address] [id number] [place] [address]- 7627 Jan, [facility] [place] [facility] [address] [id number] [place] [address]- 0256 Dec, [facility] [place] [facility] [address] [id number] [place] [address]- 9657 Nov, [facility] [place] [facility] [address] [id number] [place] [address]- 3380 Nov, [facility] [place] [facility] [address] [id number] [place] [address]- 5363 Nov, [facility] [place] [facility] [address] [id number] [place] [address]- 9328 Nov, [facility] [place] [facility] [address] [id number] [place] [address]- 2833 Nov, [facility] [place] [facility] [address] [id number] [place] [address]- 4500 Nov, [facility] [place] [facility] [address] [id number] [place] [address]- 1412 Nov, [facility] [place] [facility] [address] [id number] [place] [address]- 6194 Nov, [facility] [place] [facility] [address] [id number] [place] [address]- 1792 Nov, [facility] [place] [facility] [address] [id number] [place] [address]- 4464 Nov, [facility] [place] [facility] [address] [id number] [place] [address]- 0147 18 Nov, 2012 [facility] [address] [id number] [place] [address]- 4341 Nov, [facility] [place] [facility] [address] [id number] [place] [address]- 0266 Nov, [facility] [address] [id number] [place] [address]- 1106 17 Oct, 2012 [facility] [place] [facility] [address] [id number] [place] [address] 254 Oct, [facility] [address] [id number] [place] [address], [place] [address]- 8147 Oct, [facility] [place] [facility] [address] [facility] [id number] [place] [address]- 6454 Sep, [facility] [place] [facility] [address] [facility] [id number] [place] [address]- 3501 Sep, [facility] [place] [facility] [address] [id number] [place] [address]- 6741 Sep, [facility] [place] [facility] [address] [place] [place] [id number] [place] [address]- 4758 10 Sep, 2012 [facility] [place] [facility] [address] [facility] [id number] [place] [address]- 6295 27 Aug, 2012 [facility] [place] [facility] [address] [id number] [place] [address]- 1272 20 Aug, 2012 [facility] [place] [facility] [address] [id number] [place] [address]- 2303 24 Jul, 2012 [facility] [place] [facility] [address] [id number] [place] [address]- 3830 27 May, 2012 [facility] [place] [facility] [address] [facility] [id number] [place] [address]- 2546 14 May, 2012 [facility] [place] [facility] [address] [facility] [id number] [place] [address]- 2000 14 May, 2012 [facility] [address] [id number] [place] [address]- 5422 April, [facility] [place] [facility] [address] [id number] [place] [address]- 6436 Mar, [facility] [place] [facility] [address] [id number] [place] [address]- 5946 Mar, [facility] [place] [facility] [address] [id number] [place] [address]- 7046 Mar, [facility] [address] [id number] [place] [address]- 6508 Jan, [facility] [place] [facility] [address] [id number] [place] [address]- 8116 Jan, [facility] [place] [facility] [address] [id number] [place] [address]- 4683 Jan, [facility] [address] [id number] [place] [address]- 1375 Dec, [facility] [place] [facility] [address] [id number] [place] [address]- 6053 Dec, [facility] [place] [facility] [address] [id number] [place] [address]- 4579 Dec, [facility] [place] [facility] [address] [id number] [place] [address]- 4376 Dec, [facility] [place] [facility] [address] [id number], [place] [address]- 2636 Nov, [facility] [place] [facility] [address] [id number] [place] [address]- 0046 Nov, [facility] [place] [facility] [address] [id number] [place] [address]- 7506 Nov, [facility] [place] [facility] [address] [id number], [place] [address]- 4706 Oct, [facility] [place] [facility] [address] [id number], [place] [address]- 7416 31 Sep, 2011 [facility] [address] [id number] [place] [address]- 6517 26 Sep, 2011 [facility] [place] [facility] [address] [id number] [place] [address]- 8336 13 Sep, 2011 [facility] [place] [facility] [address] [id number] [place] [address]- 6266 15 Nov, 2010 [facility] [place] [facility] [address] [id number] [place] [address]- 0306 23 Oct, 2010 [facility] [place] [facility] [address] [id number] [place] [address]- 9110 19 Oct, 2010 [facility] [place] [facility] [address] [id number] [place] [address]- 9145 18 Oct, 2010 [facility] [place] [facility] [address] [facility] [id number] [place] [address]- 9075 16 Oct, 2010 [facility] [place] [facility] [address] [facility] [id number] [place] [address]- 1489 11 Sep, 2010 [facility] [place] [facility] [address] [facility] [id number] [place] [address]- 1640 April, [facility] [place] [facility] [address] [facility] [id number] [place] [address]- 6802 29 Nov, 2009 [facility] [place] [facility] [address] [id number] [place] [address]- 7551 24 Nov, 2009 [facility] [place] [facility] [address] [id number] [place] [address]- 2547 22 Nov, 2009 [facility] [place] [facility] [address] [id number] [place] [address]- 7612 10 Nov, 2009 [facility] [place] [facility] [address] [facility] [id number] [place] [address]- 2547 10 Nov, 2009 [facility] [place] [facility] [address] [facility] [id number] [place] [address]- 2189 19 Oct, 2009 [facility] [place] [facility] [address] [facility] [id number] [place] [address] Oct, [facility] [address] [facility] [id number] [place] [address]- 0216 Sep, [facility] [address] [facility] [id number] [place] [address] Jan, IMMUNIZATIONS No Known Immunizations SOCIAL HISTORY Never Assessed REASON FOR VISIT Sons Concerns PLAN OF CARE VITAL SIGNS MEDICATIONS [...] hip fx 04/27/16 Hospitalization History [facility] (inpatient [facility] 2 times) Hx of 3 inpatient psych treatments in past in [place] oct 2016 [facility] 2016
[2019-02-11] MEDS ORDERED: NS IV 1000 ML 1,000 ML IV ONE (14:40)
--- OUTSIDE RECORDS SUMMARY | 2019-02-11 14:40 | XMS REPORT ---
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 Name Role Phone WOLF AGUIRRE Unavailable PROBLEMS Type Condition ICD9-CM Code MFJ20-VT Code Onset Dates Condition Status SNOMED Code Problem Sundowning F05 Active 299971326 Problem Constipation, unspecified constipation type K59.00 Active 98817586 Problem Reactive depression F32.9 Active 35316080 Problem Vascular dementia with behavior disturbance F01.51 Active 434152601883320 Problem Insomnia, unspecified type G47.00 Active 287051235 Problem Generalized anxiety disorder F41.1 Active 75969317 Problem Other chronic pain G89.29 Active 16164707 Problem Severe episode of recurrent major depressive disorder, without psychotic features F33.2 Active 29166000 Problem Slow transit constipation K59.01 Active 41624861 Problem 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 Active 724464901 Problem Obsessive thinking F42.8 Active 79960746 Problem Failure to thrive in adult R62.7 Active 786858633 Problem Dysthymic disorder F34.1 Active 24907745 Problem Hypertension I10 Active 91502987 Problem Mood disorder F39 Active 70666001 Problem Irritable bowel syndrome with diarrhea K58.0 Active 850660206 Problem Oropharyngeal dysphagia R13.12 Active 96426529 Problem 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 Active 48467445 Problem Other chronic pain G89.29 Active 65029823 Problem Primary insomnia F51.01 Active 8512110 Problem Poor appetite R63.0 Active 42068257 Problem Atherosclerotic heart disease of [place] 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 Active 166406465705125 Problem Iron deficiency anemia secondary to inadequate dietary iron intake D50.8 Active 342944905 Problem Coarse tremors G25.2 Active 02386294 Problem Gastroesophageal reflux disease without esophagitis K21.9 Active 836549592 Problem Essential hypertension I10 Active 57838119 ALLERGIES No Information ENCOUNTERS Encounter Location Date Diagnosis [facility] [address] [place] [address] 17097- 6003 17 Aug, 2018 Irritable bowel syndrome with diarrhea K58.0 [facility] [id number] [place] [address] 32109- 7612 13 Aug, 2018 [facility] [id number] [place] [address] 77609- 2399 Aug, Obsessive thinking F42.8 ; Insomnia, unspecified type G47.00 and Other chronic pain G89.[address] [facility] [address] [id number] Aug, Obsessive thinking F42.8 ; Irritable bowel syndrome with diarrhea K58.0 ; Pain in right foot M79.671 ; Pain of left foot M79.672 and Gastroesophageal reflux disease without esophagitis K21.9 [facility] [id number] [place] [address] 17650- 9767 Aug, [facility] [id number] [place] [address] 59540- 8021 Jul, [facility] [id number] [place] [address] 92252- 3556 Jun, [facility] [id number] [place] [address] 65212- 6728 Jun, [facility] [address] [place] [id number] Jun, Left lower quadrant pain R10.32 and Left leg pain M79.605 [facility] [id number] [place] [address] 15888- 0576 Jun, [facility] [address] [id number] Jun, Pain in left hip M25.552 ; Pain in right hip M25.551 and Primary insomnia F51.01 [facility] [id number] [place] [address] 17222- 9930 Jun, [facility] [address] [id number] May, [facility] [id number] [place] [address] 73835- 8065 May, [facility] [id number] [address] 5276 May, [facility] [address] [place] [id number] May, Mood disorder F39 [facility] [address] [place] [address] 96933- 0207 May, [facility] [id number] [place] [address] 25321- 8648 April, [facility] [address] [place] [id number] April, Generalized anxiety disorder F41.1 ; Obsessive thinking F42.8 and Insomnia , unspecified type G47.00 [facility] [address] [address] 2015 April, [facility] [address] [place] [address] 36926- 7360 April, Rash of face R21 [facility] [id number] [address]- 9509 Mar, [facility] [address] [address]- 4843 Mar, [facility] [address] [address]- 3237 Mar, [facility] [address] [place] [address] 49434- 2857 Jan, [facility] [address] [address]- 0930 Jan, [facility] [address] [place] [id number] Jan, Constipation, unspecified constipation type K59.00 and Other chronic pain G89.29 [facility] [address] [address]- 1160 Jan, [facility] [address] [id number] Jan, Obsessive thinking F42.8 and Coarse tremors G25.2 [facility] [id number] [place] [address] [id number] Jan, [facility] [id number] [place] [address] [id number] Jan, [facility] [address] [place] [id number] Jan, Generalized anxiety disorder F41.1 ; Obsessive thinking F42.8 ; Callus of foot L84 and 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 [facility] [id number] [place] [address] 22518- 6499 Dec, Generalized anxiety disorder F41.1 and Severe episode of recurrent major depressive disorder, without psychotic features F33.2 [facility] [id number] [place] [address] 95304- 1573 Nov, [facility] [id number] [place] [address] 08341- 1824 Nov, [facility] [address] [id number] Nov, Oropharyngeal dysphagia R13.12 ; Generalized anxiety disorder F41.1 and 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 [facility] [address] [place] [address] 83561- 6346 Nov, [facility] [id number] [place] [address] [id number] Nov, [facility] [id number] [place] [address] 08842- 4731 Nov, [facility] [id number] [place] [address] 98314- 5471 Nov, [facility] [address] [address] 5343 Oct, Constipation, unspecified constipation type K59.00 and Mood disorder F39 [facility] [address] [address]- 0369 Oct, [facility] [id number] [place] [address] [id number] Sep, [facility] [id number] [place] [address] [id number] Sep, [facility] [id number] [place] [address] [id number] Sep, [facility] [id number] [place] [address] [id number] Sep, [facility] [address] [place] [id number] Sep, Generalized abdominal pain R10.84 [facility] [address] [place] [address] [id number]- 6745 Sep, [facility] [id number] [place] [address] [id number] Sep, Generalized anxiety disorder F41.1 and Primary insomnia F51.01 [facility] [id number] [id number] Aug, [facility] [id number] [place] [address] [id number] Aug, Generalized anxiety disorder F41.1 [facility] [address] [address] 8607 Jul, [facility] [address] [id number] Jul, Obsessive thinking F42.8 [facility] [address] [address] 2917 Jul, Generalized anxiety disorder F41.1 and Irritable bowel syndrome with diarrhea K58.0 [facility] [id number] [place] [address] [id number] Jul, Generalized anxiety disorder F41.1 [facility] [id number] [id number] Jun, Generalized anxiety disorder F41.1 [facility] [address] [address]- 8196 May, [facility] [address] [id number] May, Generalized anxiety disorder F41.1 ; Irritable bowel syndrome with diarrhea K58.0 and Coarse tremors G25.2 [facility] [address] [address]- 6026 April, [facility] [id number] [place] [address] 54208- 7536 April, [facility] [address] [place] [address] 44565- 6908 April, [facility] [address] [address]- 5511 Mar, [facility] [address] [id number] Mar, Severe episode of recurrent major depressive disorder, without psychotic features F33.2 and Pain in left hip M25.552 [facility] [address] [address]- 2696 Mar, [facility] [address] [place] [address] 41845- 3639 Mar, [facility] [address] [address]- 4015 Mar, [facility] [id number] [place] [address] 19567- 6556 Mar, Pain in right hip M25.551 and Self-care deficit in patient living alone R46.89 [facility] [address] [address] Jan, Other chronic pain G89.29 ; Pain in left hip M25.552 and Slow transit constipation K59.01 [facility] [id number] [place] [address] 51650- 2153 Jan, [facility] [id number] [place] [address] 24436- 9384 Dec, Other depression F32.89 ; Constipation, unspecified constipation type K59.00 and Insomnia, unspecified type G47.00 [facility] [id number] [place] [address] 78654- 5014 Nov, Reactive depression F32.9 ; Chronic idiopathic constipation K59.04 ; Generalized anxiety disorder F41.1 ; Coarse tremors G25.2 ; Gastroesophageal reflux disease without esophagitis K21.9 ; Dysthymic disorder F34.1 ; Vitamin deficiency, unspecified E56.9 and Primary insomnia F51.01 [facility] [id number] [place] [address] 09177- 4548 Nov, [facility] [id number] [place] [address] 98509- 2318 Nov, [facility] [id number] [place] [address] 42534- 8318 Nov, [facility] [id number] [place] [address] 21208- 7852 Nov, Reactive depression F32.9 ; Essential hypertension I10 ; Generalized anxiety disorder F41.1 ; Atherosclerotic heart disease of [place] 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 ; Pain in right hip M25.551 ; Other chronic pain G89.29 ; Chronic idiopathic constipation K59.04 ; Primary insomnia F51.01 ; Coarse tremors G25.2 ; Gastroesophageal reflux disease without esophagitis K21.9 ; Iron deficiency anemia secondary to inadequate dietary iron intake D50.8 and Vitamin deficiency, unspecified E56.9 [facility] [id number] [place] [address] 42574- 3340 Oct, [facility] [id number] [place] [address] 68452- 6383 Oct, [facility] [id number] [place] [address] 24194- 2673 Oct, [facility] [id number] [place] [address] 13137- 4084 Oct, Generalized anxiety disorder F41.1 ; Poor appetite R63.0 ; Dehydration E86.0 and Failure to thrive in adult R62.7 [facility] [id number] [place] [address] 99883- 4131 07 Oct, 2016 Generalized anxiety disorder F41.1 and Failure to thrive in adult R62.7 [facility] [id number] [place] [address] 04722- 8097 Oct, [facility] [id number] [place] [address] 41004- 3146 Oct, [facility] [id number] [place] [address] 50642 -1253 Sep, Vaginal discharge N89.8 and Acute cystitis with hematuria N30.01 [facility] [id number] [place] [address] 51144- 8560 Sep, [facility] [id number] [place] [address] 44099- 9737 Sep, [facility] [id number] [place] [address] 01787- 0358 Sep, Dysthymic disorder F34.1 ; Acute vaginitis N76.0 ; Dysuria R30.0 and Vaginal yeast infection B37.3 [facility] [id number] [place] [address] 98446- 4635 Aug, [facility] [id number] [place] [address] 02286- 6192 13 Aug, 2016 [facility] [id number] [place] [address] 96002 -9535 Aug, Foul smelling urine R82.90 ; Rapid heart rate R00.0 and Flatulence R14.3 [facility] [address] 48288- 1152 Aug, [facility] [address] 78922- 6556 Jul, Constipation, unspecified constipation type K59.00 ; Weak R53.1 ; Poor appetite R63.0 ; Coronary artery disease involving [place] heart without angina pectoris, unspecified vessel or lesion type I25.10 ; Fatigue, unspecified type R53.83 ; Urinary incontinence, unspecified type R32 and Insomnia, unspecified type G47.00 [facility] [address] 45419- 4439 Jul, [facility] [address] 34386- 5901 Jun, Dysuria R30.0 [facility] [address] 53574- 5837 Jun, [facility] [address] 99625- 2727 Jun, Urinary tract infection, site not specified N39.0 ; Acute vaginitis N76.0 and Diarrhea, unspecified type R19.7 [facility] [address] 10133- 3945 May, [facility] [address] 61437- 0262 April, [facility] [address] [id number] April, Encounter for dental examination Z01.20 [facility] [address] 69978- 7158 April, [facility] [address] 69471- 8483 05 May, 2016 Tremor R25.1 and Episodic tension-type headache, not intractable G44.219 [facility] [id number] [place] [address] 27540- 1494 08 Mar, 2016 [facility] [id number] [place] [address] 63488- 4429 Jan, Mood disorder F39 [facility] [id number] [place] [address] 59888 -8155 Jan, [facility] [id number] [place] [address] 64215- 8026 Jan, [facility] [id number] [place] [address] 10017- 7812 Jan, [facility] [id number] [place] [address] 40644- 8603 Jan, [facility] [id number] [place] [address] 58227- 6700 Jan, [facility] [id number] [place] [address] 17332- 9149 Jan, [facility] [id number] [place] [address] 99785 -1641 Dec, Acute diarrhea R19.7 [facility] [id number] [place] [address] 47199- 9215 Dec, [facility] [id number] [place] [address] 61260- 9037 Dec, [facility] [id number] [place] [address] 27880- 5339 Dec, [facility] [id number] [place] [address] 38581 -7890 Dec, N&V (nausea and vomiting) R11.2 [facility] [address] [address]- 9045 Dec, Generalized anxiety disorder F41.1 [facility] [address] [address]- 1853 Dec, Generalized anxiety disorder F41.1 [facility] [id number] [place] [address] 53012- 0886 Nov, Post concussion syndrome F07.81 [facility] [id number] [place] [address] 45701- 4247 Nov, Generalized anxiety disorder F41.1 [facility] [id number] [place] [address] 79519- 8381 Nov, [facility] [id number] [place] [address] 87404- 2195 Nov, Generalized anxiety disorder F41.1 [facility] [id number] [place] [address] [id number] Oct, Dental caries K02.9 [facility] [id number] [place] [address] 40636- 5302 Oct, [facility] [id number] [place] [address] [id number] Oct, Dental examination Z01.20 [facility] [id number] [place] [address] [id number] Oct, Encounter for dental examination Z01.20 [facility] [address] [place] [address] 55443- 8643 Oct, CAD (coronary artery disease) I25.10 [facility] [address] [place] [address] 87122- 9096 Sep, Generalized anxiety disorder F41.1 [facility] [id number] [place] [address] 53109- 4418 Sep, [facility] [id number] [place] [address] 52400- 1573 Sep, Rash and other nonspecific skin eruption R21 and Yeast vaginitis B37.3 [facility] [address] [place] [address]- 5039 Sep, Generalized anxiety disorder F41.1 [facility] [address] 10545- 6971 Aug, Insect bites 919.4 and Hemorrhoids 455.6 [facility] [address] 26520- 8744 Aug, Generalized anxiety disorder 300.02 [facility] [address] 05997- 1832 Aug, [facility] [address] 58640- 6055 Aug, [facility] [address] 23650- 4967 Aug, Generalized anxiety disorder 300.02 ; No condition on [place] II V71.09 ; Heart problem 429.9 and Hypertension 401.9 [facility] [id number] [place] [address] 51513- 5726 Aug, [facility] [id number] [place] [address] 42563- 9262 Jul, [facility] [id number] [place] [address] 87600- 7205 Jul, [facility] [id number] [place] [address] 72428- 0681 Jul, [facility] [id number] [place] [address] 09530- 9745 Jul, [facility] [id number] [place] [address] 11426- 1629 Jul, Rash 782.1 [facility] [id number] [place] [address] 42627- 2199 Jul, UTI (urinary tract infection) 599.0 [facility] [id number] [place] [address] 62952- 2439 Jul, [facility] [address] [address]- 8635 Jun, Dysthymia 300.4 and Anxiety 300.00 [facility] [address] [address]- 6426 Jun, 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 [facility] [address] [address]- 6199 May, [facility] [address] [place] [address] 13421- 1389 May, [facility] [id number] [place] [address] 338578- 1118 May, Unspecified breast screening V76.10 [facility] [id number] [id number] May, Dental examination V72.2 [facility] [address] [place] [address] 18880- 6546 April, [facility] [address] 6186 April, [facility] [id number] [place] [address] [id number] April, Dental examination V72.2 [facility] [address] [id number] April, Dental examination V72.2 [facility] [address] [address]- 3796 Mar, [facility] [address] [address]- 4656 Mar, [facility] [address] [address]- 2596 Jan, [facility] [address] [address]- 7616 Jan, [facility] [id number] [place] [address]- 5627 18 Jan, 2014 [facility] [place] [facility] [address] [id number] [place] [address]- 3042 18 Jan, 2014 [facility] [place] [facility] [address] [id number] [place] [address]- 3236 16 Jan, 2014 [facility] [place] [facility] [address] [id number] [place] [address]- 6616 16 Jan, 2014 [facility] [place] [facility] [address] [id number] [place] [address]- 3588 13 Jan, 2014 [facility] [place] [facility] [address] [id number] [place] [address]- 0799 13 Jan, 2014 [facility] [place] [facility] [address] [id number] [place] [address]- 3371 11 Jan, 2014 [facility] [place] [facility] [address] [id number] [place] [address]- 1890 11 Jan, 2014 [facility] [place] [facility] [address] [id number] [place] [address]- 7641 11 Jan, 2015 [facility] [place] [facility] [address] [id number] [place] [address]- 0074 11 Jan, 2014 [facility] [place] [facility] [address] [id number] [place] [address] 09 Jan, 2015 [facility] [place] [facility] [address] [id number] [place] [address] Jan, 2014 [facility] [place] [facility] [address] [id number] [place] [address] 23 Jan, 2015 [facility] [place] [facility] [address] [id number] [place] [address] Jan, 2014 [facility] [place] [facility] [address] [id number] [place] [address] 10 Jan, 2015 [facility] [place] [facility] [address] [id number] [place] [address] 10 Jan, 2015 [facility] [place] [facility] [address] [id number] [place] [address] Jan, 2014 [facility] [place] [facility] [address] [id number] [place] [address] Jan, 2014 [facility] [place] [facility] [address] [id number] [place] [address] Jan, [facility] [place] [facility] [address] [id number] [place] [address] Jan, [facility] [place] [facility] [address] [id number] [place] [address] Dec, [facility] [place] [facility] [address] [id number] [place] [address] Dec, [facility] [place] [facility] [address] [id number] [place] [address] Dec, [facility] [place] [facility] [address] [id number] [place] [address] Dec, [facility] [place] [facility] [address] [id number] [place] [address] Nov, [facility] [place] [facility] [address] [id number] [place] [address] Nov, [facility] [place] [facility] [address] [id number] [place] [address] Nov, [facility] [place] [facility] [address] [id number] [place] [address] Nov, [facility] [place] [facility] [address] [id number] [place] [address] Nov, [facility] [place] [facility] [address] [id number] [place] [address]- [address] Nov, [facility] [place] [facility] [address] [id number] [place] [address] Nov, [facility] [place] [facility] [address] [id number] [place] [address] Oct, [facility] [place] [facility] [address] [id number] [place] [address] Oct, [facility] [place] [facility] [address] [id number] [place] [address] Oct, [facility] [place] [facility] [address] [id number] [place] [address] Oct, [facility] [place] [facility] [address] [id number] [place] [address] Oct, [facility] [place] [facility] [address] [id number] [place] [address] Oct, [facility] [place] [facility] [address] [id number] [place] [address] Oct, [facility] [place] [facility] [address] [id number] [place] [address] Oct, [facility] [place] [facility] [address] [id number] [place] [address] Oct, [facility] [place] [facility] [address] [id number] [place] [address]104 Oct, [facility] [place] [facility] [address] [id number] [place] [address] 9831 Oct, [facility] [place] [facility] [address] [id number] [place] [address] Oct, [facility] [place] [facility] [address] [id number] [place] [address] Sep, [facility] [place] [facility] [address] [id number] [place] [address] 74[address] Sep, [facility] [place] [facility] [address] [id number] [place] [address] 9993 Sep, [facility] [place] [facility] [address] [id number] [place] [address]- [address]121 Sep, [facility] [place] [facility] [address] [id number] [place] [address] 0397 Jul, [facility] [place] [facility] [address] [id number] [place] [address] 0336 Jul, [facility] [place] [facility] [address] [id number] [place] [address]- 7443 Jul, [facility] [place] [facility] [address] [id number] [place] [address]- 5557 Jul, [facility] [place] [facility] [address] [id number] [place] [address] Jun, [facility] [place] [facility] [address] [id number] [place] [address]- 8286 Jun, [facility] [place] [facility] [address] [id number] [place] [address]- 6049 Jun, [facility] [place] [facility] [address] [id number] [place] [address]- 2342 Jun, [facility] [place] [facility] [address] [id number] [place] [address]- 3859 May, [facility] [place] [facility] [address] [id number] [place] [address]- 6255 May, [facility] [place] [facility] [address] [id number] [place] [address]- 3099 April, [facility] [place] [facility] [address] [id number] [place] [address]- 6513 April, [facility] [place] [facility] [address] [id number] [place] [address]- 6100 April, [facility] [place] [facility] [address] [id number] [place] [address] April, [facility] [place] [facility] [address] [id number] [place] [address]- 8418 April, [facility] [place] [facility] [address] [id number] [place] [address]- 3819 April, [facility] [place] [facility] [address] [id number] [place] [address]- 3832 April, [facility] [place] [facility] [address] [id number] [place] [address] April, [facility] [place] [facility] [address] [id number] [place] [address]- 1618 April, [facility] [place] [facility] [address] [id number] [place] [address]- 1053 Mar, [facility] [place] [facility] [address] [id number] [place] [address]- 0096 Mar, [facility] [place] [facility] [address] [id number] [place] [address]- 2578 Mar, [facility] [place] [facility] [address] [id number] [place] [address]- 9784 Mar, [facility] [place] [facility] [address] [id number] [place] [address]- 8690 Jan, [facility] [place] [facility] [address] [id number] [place] [address]- 9152 Jan, [facility] [place] [facility] [address] [id number] [place] [address]- 0541 Jan, [facility] [place] [facility] [address] [id number] [place] [address]- 4518 Jan, [facility] [place] [facility] [address] [id number] [place] [address]- 2228 Jan, [facility] [place] [facility] [address] [id number] [place] [address]- 6552 Jan, [facility] [place] [facility] [address] [id number] [place] [address]- 2845 Jan, [facility] [place] [facility] [address] [id number] [place] [address]- 3922 Jan, [facility] [place] [facility] [address] [id number] [place] [address]- 5910 Jan, [facility] [place] [facility] [address] [id number] [place] [address]- 7126 Jan, [facility] [place] [facility] [address] [id number] [place] [address]- 4166 Jan, [facility] [place] [facility] [address] [id number] [place] [address]- 6684 Jan, [facility] [place] [facility] [address] [id number] [place] [address]- 6175 Dec, [facility] [place] [facility] [address] [id number] [place] [address]- 8601 Dec, [facility] [place] [facility] [address] [id number] [place] [address]- 9091 Dec, [facility] [place] [facility] [address] [id number] [place] [address]- 8540 Dec, [facility] [place] [facility] [address] [id number] [place] [address]- 9909 Nov, [facility] [place] [facility] [address] [id number] [place] [address]- 6920 Nov, [facility] [place] [facility] [address] [id number] [place] [address]- 7311 Nov, [facility] [place] [facility] [address] [id number] [place] [address]- 0942 Nov, [facility] [place] [facility] [address] [id number] [place] [address]- 1333 Oct, [facility] [place] [facility] [address] [id number] [place] [address]- 3059 Oct, [facility] [place] [facility] [address] [id number] [place] [address]- 6873 Sep, [facility] [place] [facility] [address] [id number] [place] [address]- 3590 Sep, [facility] [place] [facility] [address] [id number] [place] [address]- 1508 Jul, [facility] [place] [facility] [address] [id number] [place] [address]- 4324 Jul, [facility] [place] [facility] [address] [id number] [place] [address]- 0611 Jun, [facility] [place] [facility] [address] [id number] [place] [address]- 2350 Jun, [facility] [place] [facility] [address] [id number] [place] [address]- 5677 Jun, [facility] [place] [facility] [address] [id number] [place] [address]- 5185 May, [facility] [place] [facility] [address] [id number] [place] [address]- 5395 May, [facility] [place] [facility] [address] [id number] [place] [address]- 9060 May, [facility] [place] [facility] [address] [id number] [place] [address]- 6472 May, [facility] [place] [facility] [address] [id number] [place] [address]- 7564 May, [facility] [place] [facility] [address] [id number] [place] [address]- 4891 April, [facility] [place] [facility] [address] [id number] [place] [address]- 0633 April, [facility] [place] [facility] [address] [id number] [place] [address]- 6114 April, [facility] [place] [facility] [address] [id number] [place] [address]- 6516 April, [facility] [place] [facility] [address] [id number] [place] [address]- 8516 April, [facility] [place] [facility] [address] [id number] [place] [address]- 0922 April, [facility] [address] [id number] [place] [address]- 0811 Mar, [facility] [place] [facility] [address] [id number] [place] [address]- 1256 Mar, [facility] [address] [id number] [place] [address]- 4144 Jan, [facility] [address] [id number] [place] [address]- 8789 Jan, [facility] [address] [id number] [place] [address]- 8356 Jan, [facility] [address] [facility] [id number] [place] [address]- 2256 Jan, [facility] [id number] [place] [address]- 8429 Jan, [facility] [place] [address] [id number] [place] [address]- 8189 Jan, [facility] [id number] [place] [address]- 2461 Jan, [facility] [address] [id number] [place] [address]- 7180 Jan, [facility] [address] [id number] [place] [address]- 9013 Jan, [facility] [address] [id number] [place] [address] 2545 Jan, [facility] [place] [facility] [address] [id number] [place] [address]- 3544 Jan, [facility] [place] [facility] [address] [facility] [id number] [place] [address]- 5496 Dec, [facility] [place] [facility] [address] [id number] [place] [address]- 3210 Nov, [facility] [place] [facility] [address] [id number] [place] [address]- 5976 Nov, [facility] [place] [facility] [address] [id number] [place] [address]- 6896 Nov, [facility] [place] [facility] [address] [facility] [id number] [place] [address] Nov, [facility] [place] [facility] [address] [id number] [place] [address]- 3827 Nov, [facility] [place] [facility] [address] [id number] [place] [address]- 6600 Nov, [facility] [place] [facility] [address] [id number] [place] [address]- 6994 Nov, [facility] [place] [facility] [address] [id number] [place] [address]- 4975 Nov, [facility] [place] [facility] [address] [id number] [place] [address]- 5467 Nov, [facility] [place] [facility] [address] [id number] [place] [address]- 8334 Nov, [facility] [place] [facility] [address] [id number] [place] [address]- 6957 Nov, [facility] [place] [facility] [address] [id number] [address]- 1353 Nov, [facility] [place] [facility] [address] [id number] [address]- 2738 Nov, [facility] [place] [facility] [address] [id number] [place] [address]- 7146 Oct, [facility] [place] [facility] [address] [id number] [address]- 7563 Oct, [facility] [place] [facility] [address] [facility] [id number] [place] [address]- 1711 Oct, [facility] [place] [facility] [address] [id number] [place] [address]- 9027 19 Sep, 2012 [facility] [place] [facility] [address] [id number] [place] [address]- 5466 19 Sep, 2012 [facility] [place] [facility] [address] [id number] [place] [address]- 4496 10 Sep, 2012 [facility] [place] [facility] [address] [id number] [place] [address]- 7576 10 Sep, 2012 [facility] [place] [facility] [address] [id number] [place] [address]- 4114 27 Aug, 2012 [facility] [place] [facility] [address] [id number] [place] [address]66 20 Aug, 2012 [facility] [place] [facility] [address] [id number] [place] [address]- 3059 24 Jul, 2012 [facility] [place] [facility] [address] [id number] [place] [address]- 3536 May, [facility] [place] [facility] [address] [id number] [place] [address]- 6287 May, [facility] [place] [facility] [address] [id number] [place] [address]- 7754 May, [facility] [place] [facility] [address] [facility] [id number] [place] [address]- 9690 April, [facility] [place] [facility] [address] [id number] [place] [address]- 6433 Mar, [facility] [place] [facility] [address] [id number] [place] [address]- 1461 10 Mar, 2012 [facility] [place] [facility] [address] [id number] [place] [address]- 6512 03 Mar, 2012 [facility] [place] [facility] [address] [id number] [id number] [address] 27 Jan, 2012 [facility] [place] [facility] [address] [id number] [place] [address]70 Jan, [facility] [place] [facility] [address] [id number] [place] [address]- 4863 Jan, [facility] [address] [id number] [place] [address]- 7393 Dec, [facility] [address] [id number] [place] [address]- 7516 Dec, [facility] [address] [id number] [place] [address]- 5159 Dec, [facility] [address] [id number] [place] [address]- 7483 Dec, [facility] [address] [id number] [place] [address]- 8872 Nov, [facility] [address] [id number] [place] [address]- 1789 Nov, [facility] [address] [id number] [place] [address]- 9230 Nov, [facility] [address] [id number] [place] [address]- 9443 Oct, [facility] [address] [id number] [place] [address]- 0930 Sep, [facility] [address] [id number] [place] [address]- 4725 Sep, [facility] [address] [id number] [place] [address]- 8320 Sep, [facility] [address] [id number] [place] [address]- 7732 15 Nov, 2010 [facility] [place] [facility] [address] [id number] [place] [address]- 5131 Oct, [facility] [place] [facility] [address] [id number] [place] [address]- 8319 Oct, [facility] [address] [id number] [address]- [address]15 Oct, [facility] [id number] [address]- 8890 Oct, [facility] [id number] [address]- 1609 Sep, [facility] [id number] [address]- 5665 April, [facility] [id number] [address]- 0718 Nov, [facility] [id number] [address]- 1268 Nov, [facility] [id number] [address]- 7091 Nov, [facility] [id number] [address]- 8959 Nov, [facility] [id number] [address]- 6697 Nov, [facility] [id number] [address]- 7356 Oct, [facility] [id number] [address]- 3867 Oct, [facility] [address] [id number] [address]- 5965 Sep, [facility] [id number] [address]- 8102 Jan, IMMUNIZATIONS No Known Immunizations SOCIAL HISTORY [...] fx 04/27/16 Hospitalization History [facility] (inpatient [facility] 2 times) Hx of 3 inpatient psych treatments in past in [place] oct 2016 [facility] 2016
[2019-02-11 14:43] LABS: BAND NEUTROPHILS 2 %; BASOPHILS % (MANUAL) 0 %; EOSINOPHILS % (MANUAL) 0 %; LYMPHOCYTES % (MANUAL) 8 %; MONOCYTES % (MANUAL) 6 %; NEUTROPHILS % (MANUAL) 84 %; RBC MORPH NORMAL
--- OUTSIDE RECORDS SUMMARY | 2019-02-11 14:58 | XMS REPORT | Continuity of Care Document ---
Author Author Count Includes [facility] of [facility] of [facility] Address Unknown Phone Unavailable Allergies Active Description Code Type Severity Reaction Onset Reported/Identified Relationship to Patient Clinical Status Yes CLINDAMYCIN PHOSPHATE CLINDAMYCIN PHOSPHAT SEVERE Yes MORPHINE MORPHINE SEVERE Yes CLINDAMYCIN PHOSPHATE SEVERE UNKNOWN Yes MORPHINE SEVERE UNKNOWN Yes NKANo Known Allergies NKA Miscellaneous Allergy Unknown N/A 10/07/2006 Yes morphine [id number] Drug Allergy Unknown N/A 04/28/2016 Medications Medication [...] JL 10/22/2016 11/21/2016 PRN Q48H Fluarix Quad [id number] (PF) (Influenza [id number] 36mos up(PF)) IM syringe ML 10/22/2016 10/22/2016 [...] WOLF AGUIRRE APRN 787.91 Diarrhea 09/01/2008 TIMOTHY FINISHING PAN OPERATOR, WOLF S 462 Pharyngitis Acute 09/01/2008 TIMOTHY FINISHING PAN OPERATOR, WOLF S 787.91 Diarrhea 09/01/2008 ITMOTHY FINISHING PAN OPERATOR, WOLF S 462 Pharyngitis Acute 09/01/2008 TIMOTHY FINISHING PAN OPERATOR, WOLF S 787.91 Diarrhea 09/01/2008 TIMOTHY FINISHING PAN OPERATOR, WOLF S 462 Pharyngitis Acute 09/01/2008 TIMOTHY FINISHING PAN OPERATOR, WOLF S 787.91 Diarrhea 09/01/2008 TIMOTHY FINISHING PAN OPERATOR, WOLF S 462 Pharyngitis Acute 09/01/2008 TIMOTHY FINISHING PAN OPERATOR, WOLF S 787.91 Diarrhea 09/01/2008 WHITE DDS, MELISSA J 462 Pharyngitis Acute 09/01/2008 WHITE DDS, MELISSA J 787.91 Diarrhea 09/01/2008 TAN DDS, MARIA LUISA 462 Pharyngitis Acute 09/01/2008 TAN DDS, MARIA LUISA 787.91 Diarrhea 09/01/2008 JOHANNY GAINESN, HUSAM T 462 Pharyngitis Acute 09/01/2008 JOHANNY FINISHING PAN OPERATOR, HUSAM T 787.91 Diarrhea 09/01/2008 TIMOTHY FINISHING PAN OPERATOR, WOLF S 462 Pharyngitis Acute 09/01/2008 TIMOTHY FINISHING PAN OPERATOR, WOLF S 787.91 Diarrhea 09/01/2008 TIMOTHY FINISHING PAN OPERATOR, WOLF S 462 Pharyngitis Acute 09/01/2008 TIMOTHY FINISHING PAN OPERATOR, WOLF S 787.91 Diarrhea 09/01/2008 CASSIE DOMINGUEZ, KADY Raymundo 462 Pharyngitis Acute 09/01/2008 CASSIE DOMINGUEZ, KADY Raymundo 787.91 Diarrhea 09/01/2008 TIMOTHY FINISHING PAN OPERATOR, WOLF S 462 Pharyngitis Acute 09/01/2008 TIMOTHY FINISHING PAN OPERATOR, WOLF S 787.91 Diarrhea 09/01/2008 TIMOTHY FINISHING PAN OPERATOR, WOLF S 462 Pharyngitis Acute 09/01/2008 TIMOTHY FINISHING PAN OPERATOR, WOLF S 787.91 Diarrhea 09/01/2008 TAN DDS, [...] S 008.62 Gastroenteritis Viral Adenovirus 03/31/2009 TIMOTHY FINISHING PAN OPERATOR, WOLF S 008.62 Gastroenteritis Viral Adenovirus 03/31/2009 TIMOTHY FINISHING PAN OPERATOR, WOLF S 008.62 Gastroenteritis Viral Adenovirus 03/31/2009 TIMOTHY FINISHING PAN OPERATOR, WOLF S 008.62 Gastroenteritis Viral Adenovirus 03/31/2009 TIMOTHY FINISHING PAN OPERATOR, WOLF S 008.62 Gastroenteritis Viral Adenovirus 03/31/2009 GAGANDEEP DDS, MELISSA Raymundo 008.62 Gastroenteritis Viral Adenovirus 03/31/2009 BRITNEY WILCOXS, MARIA LUISA 008.62 Gastroenteritis Viral Adenovirus 03/31/2009 HUSAM ORLANDO APRN 008.62 Gastroenteritis Viral Adenovirus 03/31/2009 TIMOTHY GAINESN, WOLF S 008.62 Gastroenteritis Viral Adenovirus 03/31/2009 TIMOTHY GAINESN, WOLF S 008.62 Gastroenteritis Viral Adenovirus 03/31/2009 CASSIE DOMINGUEZ, KADY Raymundo 008.62 Gastroenteritis Viral Adenovirus 03/31/2009 TIMOTHY FINISHING PAN OPERATOR, WOLF S 008.62 Gastroenteritis Viral Adenovirus 03/31/2009 TIMOTHYTSARLA GAINESN, WOLF S 008.62 Gastroenteritis Viral Adenovirus [...] K 599.0 Urinary Tract Infection 06/29/2009 TIMOTHY FINISHING PAN OPERATOR, WOLF S 599.0 Urinary Tract Infection 06/29/2009 TIMOTHY GAINESN, WOLF S 599.0 Urinary Tract Infection 06/29/2009 TIMOTHY FINISHING PAN OPERATOR, WOLF S 599.0 Urinary Tract Infection 06/29/2009 TIMOTHY FINISHING PAN OPERATOR, WOLF S 599.0 Urinary Tract Infection 06/29/2009 TIMOTHY FINISHING PAN OPERATOR, WOLF S 599.0 Urinary Tract Infection 06/29/2009 GAGANDEEP DDS, MELISSA Raymundo 599.0 Urinary Tract Infection 06/29/2009 BRITNEY WILCOXS, MARIA LUISA 599.0 Urinary Tract Infection 06/29/2009 HUSAM ORLANDO APRN 599.0 Urinary Tract Infection 06/29/2009 TIMOTHY GAINESN, WOLF S 599.0 Urinary Tract Infection 06/29/2009 TIMOTHY KAN, WOLF S 599.0 Urinary Tract Infection 06/29/2009 CASSIE DOMINGUEZ, KADY Raymundo 599.0 Urinary Tract Infection 06/29/2009 TIMOTHY FINISHING PAN OPERATOR, WOLF S 599.0 Urinary Tract Infection 06/29/2009 [...] WOLF S 272.4 HYPERLIPIDEMIA UNSPECIFIED 08/15/2009 TIMOTHY FINISHING PAN OPERATOR, WOLF S 272.4 HYPERLIPIDEMIA UNSPECIFIED 08/15/2009 TIMOTHY FINISHING PAN OPERATOR, WOLF S 272.4 HYPERLIPIDEMIA UNSPECIFIED 08/15/2009 TIMOTHY FINISHING PAN OPERATOR, WOLF S 272.4 HYPERLIPIDEMIA UNSPECIFIED 08/15/2009 TIMOTHY FINISHING PAN OPERATOR, WOLF S 272.4 HYPERLIPIDEMIA UNSPECIFIED 08/15/2009 MELISSA DONIS DDS 272.4 HYPERLIPIDEMIA UNSPECIFIED 08/15/2009 MARIA LUISA TAN DDS 272.4 HYPERLIPIDEMIA UNSPECIFIED 08/15/2009 HUSAM ORLANDO APRN 272.4 HYPERLIPIDEMIA UNSPECIFIED 08/15/2009 TIMOTHY GAINESN, WOLF S 272.4 HYPERLIPIDEMIA UNSPECIFIED 08/15/2009 TIMOTHY GAINESN, WOLF S 272.4 HYPERLIPIDEMIA UNSPECIFIED 08/15/2009 CASSIE DOMINGUEZ, KADY Raymundo 272.4 HYPERLIPIDEMIA UNSPECIFIED 08/15/2009 TIMOTHY FINISHING PAN OPERATOR, WOLF S 272.4 HYPERLIPIDEMIA UNSPECIFIED 08/15/2009 TIMOTHY FINISHING PAN OPERATOR, WOLF S 272.4 HYPERLIPIDEMIA UNSPECIFIED 08/15/2009 BRITNEY WILCOXS, MARIA LUISA 272.4 HYPERLIPIDEMIA UNSPECIFIED 08/15/2009 MXA DDS, KATHYA Chopra 272.4 HYPERLIPIDEMIA UNSPECIFIED 08/26/2009 [...] WOLF S 558.9 Gastroenteritis Noninfectious 08/26/2009 TIMOTHY FINISHING PAN OPERATOR, WOLF S 558.9 Gastroenteritis Noninfectious 08/26/2009 TIMOTHY FINISHING PAN OPERATOR, WOLF S 558.9 Gastroenteritis Noninfectious 08/26/2009 TIMOTHY FINISHING PAN OPERATOR, WOLF S 558.9 Gastroenteritis Noninfectious 08/26/2009 MELISSA [...] K V58.69 Medication High Risk 09/07/2009 TIMOTHY FINISHING PAN OPERATOR, WOLF S 300.00 Anxiety State, Unspecified 09/07/2009 TIMOTHY FINISHING PAN OPERATOR, WOLF S V58.69 Medication High Risk 09/07/2009 TIMOTHY FINISHING PAN OPERATOR, WOLF S 300.00 Anxiety State, Unspecified 09/07/2009 TIMOTHY FINISHING PAN OPERATOR, WOLF S V58.69 Medication High Risk 09/07/2009 TIMOTHY FINISHING PAN OPERATOR, WOLF S 300.00 Anxiety State, Unspecified 09/07/2009 TIMOTHY FINISHING PAN OPERATOR, WOLF S V58.69 Medication High Risk 09/07/2009 TIMOTHY FINISHING PAN OPERATOR, WOLF S 300.00 Anxiety State, Unspecified 09/07/2009 TIMOTHY FINISHING PAN OPERATOR, WOLF S V58.69 Medication High Risk 09/07/2009 TIMOTHY FINISHING PAN OPERATOR, WOLF S 300.00 Anxiety State, Unspecified 09/07/2009 TIMOTHY FINISHING PAN OPERATOR, WOLF S V58.69 Medication High Risk 09/07/2009 WHITE DDS, MELISSA J 300.00 Anxiety State, Unspecified 09/07/2009 WHITE DDS, MELISSA J V58.69 Medication High Risk 09/07/2009 TAN DDS, MARIA LUISA 300.00 Anxiety State, Unspecified 09/07/2009 TAN DDS, MARIA LUISA V58.69 Medication High Risk 09/07/2009 HUSAM OLRANDO APRN 300.00 Anxiety State, Unspecified 09/07/2009 HUSAM ORLANDO APRN V58.69 Medication High Risk 09/07/2009 TIMOTHY FINISHING PAN OPERATOR, WOLF S 300.00 Anxiety State, Unspecified 09/07/2009 TIMOTHY FINISHING PAN OPERATOR, WOLF S V58.69 Medication High Risk 09/07/2009 TIMOTHY FINISHING PAN OPERATOR, WOLF S 300.00 Anxiety State, Unspecified 09/07/2009 TIMOTHY FINISHING PAN OPERATOR, WOLF S V58.69 Medication High Risk 09/07/2009 CASSIE DOMINGUEZ, KADY Raymundo 300.00 Anxiety State, Unspecified 09/07/2009 CASSIE DOMINGUEZ, KADY Raymundo V58.69 Medication High Risk 09/07/2009 TIMOTHY FINISHING PAN OPERATOR, WOLF S 300.00 Anxiety State, Unspecified 09/07/2009 TIMOTHY FINISHING PAN OPERATOR, WOLF S V58.69 Medication High Risk 09/07/2009 TIMOTHY FINISHING PAN OPERATOR, WOLF S 300.00 Anxiety State, Unspecified 09/07/2009 TIMOTHY FINISHING PAN OPERATOR, WOLF S V58.69 Medication High Risk 09/07/2009 [...] Pain In Joint, Shoulder Region 11/10/2009 TIMOTHY FINISHING PAN OPERATOR, WOLF S 719.41 Pain In Joint, Shoulder [...] Pain In Joint, Shoulder Region 11/10/2009 TIMOTHY FINISHING PAN OPERATOR, WOLF S 719.41 Pain In Joint, Shoulder Region 11/10/2009 TIMOTHY FINISHING PAN OPERATOR, WOLF S 719.41 Pain In Joint, Shoulder Region 11/10/2009 TIMOTHY FINISHING PAN OPERATOR, WOLF S 719.41 Pain In Joint, Shoulder Region 11/10/2009 TIMOTHY FINISHING PAN OPERATOR, WOLF S 719.41 Pain In Joint, Shoulder Region 11/10/2009 TIMOTHY FINISHING PAN OPERATOR, WOLF S 719.41 Pain In Joint, Shoulder Region 11/10/2009 MELISSA DONIS DDS 719.41 Pain In Joint, Shoulder Region 11/10/2009 MARIA LUISA TAN DDS 719.41 Pain In Joint, Shoulder Region 11/10/2009 HUSAM ORLANDO APRN 719.41 Pain In Joint, Shoulder Region 11/10/2009 TIMOTHY FINISHING PAN OPERATOR, WOLF S 719.41 Pain In Joint, Shoulder Region 11/10/2009 TIMOTHY FINISHING PAN OPERATOR, WOLF S 719.41 Pain In Joint, Shoulder Region 11/10/2009 CASSIE DOMINGUEZ, KADY Raymundo 719.41 Pain In Joint, Shoulder Region 11/10/2009 TIMOTHY FINISHING PAN OPERATOR, WOLF S 719.41 Pain In Joint, Shoulder Region 11/10/2009 TIMOTHY FINISHING PAN OPERATOR, WOLF S 719.41 Pain In Joint, Shoulder [...] DEPRESSIVE DISORDER, NOT ELSEWHERE CLASSIFIED 12/29/2009 JOHANNY FINISHING PAN OPERATORHUSAM T 564.1 Irritable Bowel Syndrome 12/29/2009 TIMOTHY FINISHING PAN OPERATOR, WOLF S 311 DEPRESSIVE DISORDER, NOT ELSEWHERE CLASSIFIED 12/29/2009 TIMOTHY FINISHING PAN OPERATOR, WOLF S 564.1 Irritable Bowel Syndrome 12/29/2009 [...] K 564.1 Irritable Bowel Syndrome 12/29/2009 TIMOTHY FINISHING PAN OPERATOR, WOLF S 311 DEPRESSIVE DISORDER, NOT ELSEWHERE CLASSIFIED 12/29/2009 TIMOTHY FINISHING PAN OPERATOR, WOLF S 564.1 Irritable Bowel Syndrome 12/29/2009 TIMOTHY FINISHING PAN OPERATOR, WOLF S 311 DEPRESSIVE DISORDER, NOT ELSEWHERE CLASSIFIED 12/29/2009 TIMOTHY FINISHING PAN OPERATOR, WOLF S 564.1 Irritable Bowel Syndrome 12/29/2009 TIMOTHY FINISHING PAN OPERATOR, WOLF S 311 DEPRESSIVE DISORDER, NOT ELSEWHERE CLASSIFIED 12/29/2009 TIMOTHY FINISHING PAN OPERATOR, WOLF S 564.1 Irritable Bowel Syndrome 12/29/2009 TIMOTHY FINISHING PAN OPERATOR, WOLF S 311 DEPRESSIVE DISORDER, NOT ELSEWHERE CLASSIFIED 12/29/2009 TIMOTHY FINISHING PAN OPERATOR, WOLF S 564.1 Irritable Bowel Syndrome 12/29/2009 TIMOTHY FINISHING PAN OPERATOR, WOLF S 311 DEPRESSIVE DISORDER, NOT ELSEWHERE CLASSIFIED 12/29/2009 TIMOTHY FINISHING PAN OPERATOR, WOLF S 564.1 Irritable Bowel Syndrome 12/29/2009 [...] Isabel 564.1 Irritable Bowel Syndrome 12/29/2009 TIMOTHY FINISHING PAN OPERATOR, WOLF S 311 DEPRESSIVE DISORDER, NOT ELSEWHERE CLASSIFIED 12/29/2009 TIMOTHY FINISHING PAN OPERATOR, WOLF S 564.1 Irritable Bowel Syndrome 12/29/2009 TIMOTHY FINISHING PAN OPERATOR, WOLF S 311 DEPRESSIVE DISORDER, NOT ELSEWHERE CLASSIFIED 12/29/2009 TIMOTHY FINISHING PAN OPERATOR, WOLF S 564.1 Irritable Bowel Syndrome 12/29/2009 CASSIE DOMINGUEZ, KADY Raymundo 311 DEPRESSIVE DISORDER, NOT ELSEWHERE CLASSIFIED 12/29/2009 CASSIE DOMINGUEZ, KADY Raymundo 564.1 Irritable Bowel Syndrome 12/29/2009 TIMOTHY FINISHING PAN OPERATOR, WOLF S 311 DEPRESSIVE DISORDER, NOT ELSEWHERE CLASSIFIED 12/29/2009 TIMOTHY FINISHING PAN OPERATOR, WOLF S 564.1 Irritable Bowel Syndrome 12/29/2009 TIMOTHY FINISHING PAN OPERATOR, WOLF S 311 DEPRESSIVE DISORDER, NOT ELSEWHERE CLASSIFIED 12/29/2009 TIMOTHY FINISHING PAN OPERATOR, WOLF S 564.1 Irritable Bowel Syndrome 12/29/2009 [...] NICOLE DO 787.02 Nausea Alone 01/27/2010 TIMOTHY FINISHING PAN OPERATOR, WOLF S 427.89 Other Specified Cardiac Dysrhythmias 01/27/2010 TIMOTHY FINISHING PAN OPERATOR, WOLF S 787.02 Nausea Alone 01/27/2010 TIMOTHY FINISHING PAN OPERATOR, WOLF S 427.89 Other Specified Cardiac Dysrhythmias 01/27/2010 TIMOTHY FINISHING PAN OPERATOR, WOLF S 787.02 Nausea Alone 01/27/2010 TIMOTHY FINISHING PAN OPERATOR, WOLF S 427.89 Other Specified Cardiac Dysrhythmias 01/27/2010 TIMOTHY FINISHING PAN OPERATOR, WOLF S 787.02 Nausea Alone 01/27/2010 TIMOTHY FINISHING PAN OPERATOR, WOLF S 427.89 Other Specified Cardiac Dysrhythmias 01/27/2010 TIMOTHY FINISHING PAN OPERATOR, WOLF S 787.02 Nausea Alone 01/27/2010 TIMOTHY FINISHING PAN OPERATOR, WOLF S 427.89 Other Specified Cardiac Dysrhythmias 01/27/2010 TIMOTHY FINISHING PAN OPERATOR, WOLF S 787.02 Nausea Alone 01/27/2010 GAGANDEEP DDS, MELISSA Raymundo 427.89 Other Specified Cardiac Dysrhythmias 01/27/2010 GAGANDEEP DDS, MELISSA J 787.02 Nausea Alone 01/27/2010 TAN DDS, MARIA LUISA 427.89 Other Specified Cardiac Dysrhythmias 01/27/2010 TAN DDS, MARIA LUISA 787.02 Nausea Alone 01/27/2010 HUSAM ORLANDO APRN 427.89 Other Specified Cardiac Dysrhythmias 01/27/2010 HUSAM ORLANDO APRN 787.02 Nausea Alone 01/27/2010 TIMOTHY FINISHING PAN OPERATOR, WOLF S 427.89 Other Specified Cardiac Dysrhythmias 01/27/2010 TIMOTHY FINISHING PAN OPERATOR, WOLF S 787.02 Nausea Alone 01/27/2010 TIMOTHY FINISHING PAN OPERATOR, WOLF S 427.89 Other Specified Cardiac Dysrhythmias 01/27/2010 TIMOTHY FINISHING PAN OPERATOR, WOLF S 787.02 Nausea Alone 01/27/2010 KADY MATTHEWS MD 427.89 Other Specified Cardiac Dysrhythmias 01/27/2010 KADY MATTHEWS MD 787.02 Nausea Alone 01/27/2010 TIMOTHY FINISHING PAN OPERATOR, WOLF S 427.89 Other Specified Cardiac Dysrhythmias 01/27/2010 TIMOTHY FINISHING PAN OPERATOR, WOLF S 787.02 Nausea Alone 01/27/2010 TIMOTHY FINISHING PAN OPERATOR, WOLF S 427.89 Other Specified Cardiac Dysrhythmias 01/27/2010 TIMOTHY FINISHING PAN OPERATOR, WOLF S 787.02 Nausea Alone 01/27/2010 TAN [...] APRN 781.0 Abnormal Involuntary Movements 02/03/2010 TIMOTHY FINISHING PAN OPERATOR, WOLF S 781.0 Abnormal Involuntary Movements 02/03/2010 [...] K 781.0 Abnormal Involuntary Movements 02/03/2010 TIMOTHY FINISHING PAN OPERATOR, WOLF S 781.0 Abnormal Involuntary Movements 02/03/2010 TIMOTHY FINISHING PAN OPERATOR, WOLF S 781.0 Abnormal Involuntary Movements 02/03/2010 TIMOTHY FINISHING PAN OPERATOR, WOLF S 781.0 Abnormal Involuntary Movements 02/03/2010 TIMOTHY FINISHING PAN OPERATOR, WOLF S 781.0 Abnormal Involuntary Movements 02/03/2010 TIMOTHY FINISHING PAN OPERATOR, WOLF S 781.0 Abnormal Involuntary Movements 02/03/2010 [...] 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 02/06/2010 TIMOTHY FINISHING PAN OPERATOR, WOLF S 780.52 Insomnia, Unspecified 02/06/2010 TIMOTHY FINISHING PAN OPERATOR, WOLF S 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 02/06/2010 TIMOTHY FINISHING PAN OPERATOR, WOLF S 780.52 Insomnia, Unspecified 02/06/2010 TIMOTHY FINISHING PAN OPERATOR, WOLF S 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 02/06/2010 TIMOTHY FINISHING PAN OPERATOR, WOLF S 780.52 Insomnia, Unspecified 02/06/2010 TIMOTHY FINISHING PAN OPERATOR, WOLF S 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 02/06/2010 TIMOTHY FINISHING PAN OPERATOR, WOLF S 780.52 Insomnia, Unspecified 02/06/2010 TIMOTHY FINISHING PAN OPERATOR, WOLF S 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 02/06/2010 TIMOTHY FINISHING PAN OPERATOR, WOLF S 780.52 Insomnia, Unspecified 02/06/2010 GAGANDEEP [...] T V72.31 Routine Gynecological Examination 04/18/2010 TIMOTHY FINISHING PAN OPERATOR, WOLF S 616.10 Vaginitis And Vulvovaginitis, Unspecified 04/18/2010 TIMOTHY FINISHING PAN OPERATOR, WOLF S 788.1 Dysuria 04/18/2010 TIMOTHY FINISHING PAN OPERATOR, WOLF S V72.31 Routine Gynecological Examination 04/18/2010 [...] K V72.31 Routine Gynecological Examination 04/18/2010 TIMOTHY FINISHING PAN OPERATOR, WOLF S 616.10 Vaginitis And Vulvovaginitis, Unspecified 04/18/2010 TIMOTHY FINISHING PAN OPERATOR, WOLF S 788.1 Dysuria 04/18/2010 TIMOTHY FINISHING PAN OPERATOR, WOLF S V72.31 Routine Gynecological Examination 04/18/2010 TIMOTHY FINISHING PAN OPERATOR, WOLF S 616.10 Vaginitis And Vulvovaginitis, Unspecified 04/18/2010 TIMOTHY FINISHING PAN OPERATOR, WOLF S 788.1 Dysuria 04/18/2010 TIMOTHY FINISHING PAN OPERATOR, WOLF S V72.31 Routine Gynecological Examination 04/18/2010 TIMOTHY FINISHING PAN OPERATOR, WOLF S 616.10 Vaginitis And Vulvovaginitis, Unspecified 04/18/2010 TIMOTHY FINISHING PAN OPERATOR, WOLF S 788.1 Dysuria 04/18/2010 TIMOTHY FINISHING PAN OPERATOR, WOLF S V72.31 Routine Gynecological Examination 04/18/2010 TIMOTHY FINISHING PAN OPERATOR, WOLF S 616.10 Vaginitis And Vulvovaginitis, Unspecified 04/18/2010 TIMOTHY FINISHING PAN OPERATOR, WOLF S 788.1 Dysuria 04/18/2010 TIMOTHY FINISHING PAN OPERATOR, WOLF S V72.31 Routine Gynecological Examination 04/18/2010 TIMOTHY FINISHING PAN OPERATOR, WOLF S 616.10 Vaginitis And Vulvovaginitis, Unspecified 04/18/2010 TIMOTHY FINISHING PAN OPERATOR, WOLF S 788.1 Dysuria 04/18/2010 TIMOTHY GAINESN, [...] APRN V72.31 Routine Gynecological Examination 04/18/2010 TIMOTHY FINISHING PAN OPERATOR, WOLF S 616.10 Vaginitis And Vulvovaginitis, Unspecified 04/18/2010 TIMOTHY KAN, WOLF S 788.1 Dysuria 04/18/2010 TIMOTHY FINISHING PAN OPERATOR, WOLF S V72.31 Routine Gynecological Examination 04/18/2010 TIMOHTY FINISHING PAN OPERATOR, WOLF S 616.10 Vaginitis And Vulvovaginitis, Unspecified 04/18/2010 TIMOTHY FINISHING PAN OPERATOR, WOLF S 788.1 Dysuria 04/18/2010 TIMOTHY FINISHING PAN OPERATOR, WOLF S V72.31 Routine Gynecological Examination 04/18/2010 CASSIE DOMINGUEZ, KADY Raymundo 616.10 Vaginitis And Vulvovaginitis, Unspecified 04/18/2010 CASSIE DOMINGUEZ, KADY Raymundo 788.1 Dysuria 04/18/2010 CASSIE DOMINGUEZ, KADY Raymundo V72.31 Routine Gynecological Examination 04/18/2010 TIMOTHY KAN WOLF S 616.10 Vaginitis And Vulvovaginitis, Unspecified 04/18/2010 TIMOTHY FINISHING PAN OPERATOR, WOLF S 788.1 Dysuria 04/18/2010 TIMOTHY FINISHING PAN OPERATOR, WOLF S V72.31 Routine Gynecological Examination 04/18/2010 TIMOTHY FINISHING PAN OPERATOR, WOLF S 616.10 Vaginitis And Vulvovaginitis, Unspecified 04/18/2010 TIMOTHY FINISHING PAN OPERATOR, WOLF S 788.1 Dysuria 04/18/2010 TIMOTHY FINISHING PAN OPERATOR, WOLF S V72.31 Routine Gynecological Examination 04/18/2010 [...] WOLF S 461.9 Sinusitis Acute 08/22/2010 TIMOTHY FINISHING PAN OPERATOR, WOLF S 536.8 Dyspepsia And Other Specified [...] Disorders Of Function Of Stomach 08/22/2010 TIMOTHY FINISHING PAN OPERATOR, WOLF S 461.9 Sinusitis Acute 08/22/2010 TIMOTHY FINISHING PAN OPERATOR, WOLF S 536.8 Dyspepsia And Other Specified Disorders Of Function Of Stomach 08/22/2010 TIMOTHY FINISHING PAN OPERATOR, WOLF S 461.9 Sinusitis Acute 08/22/2010 TIMOTHY FINISHING PAN OPERATOR, WOLF S 536.8 Dyspepsia And Other Specified Disorders Of Function Of Stomach 08/22/2010 TIMOTHY FINISHING PAN OPERATOR, WOLF S 461.9 Sinusitis Acute 08/22/2010 TIMOTHY FINISHING PAN OPERATOR, WOLF S 536.8 Dyspepsia And Other Specified Disorders Of Function Of Stomach 08/22/2010 TIMOTHY FINISHING PAN OPERATOR, WOLF S 461.9 Sinusitis Acute 08/22/2010 TIMOTHY FINISHING PAN OPERATOR, WOLF S 536.8 Dyspepsia And Other Specified Disorders Of Function Of Stomach 08/22/2010 TIMOTHY FINISHING PAN OPERATOR, WOLF S 461.9 Sinusitis Acute 08/22/2010 TIMOTHY FINISHING PAN OPERATOR, WOLF S 536.8 Dyspepsia And Other Specified [...] Disorders Of Function Of Stomach 08/22/2010 TIMOTHY FINISHING PAN OPERATOR, WOLF S 461.9 Sinusitis Acute 08/22/2010 TIMOTHY KAN, WOLF S 536.8 Dyspepsia And Other Specified Disorders Of Function Of Stomach 08/22/2010 CASSIE DOMINGUEZ, KADY Raymundo 461.9 Sinusitis Acute 08/22/2010 CASSIE DOMINGUEZ, KAYD Raymunod 536.8 Dyspepsia And Other Specified Disorders Of Function Of Stomach 08/22/2010 TIMOTHY FINISHING PAN OPERATOR, WOLF S 461.9 Sinusitis Acute 08/22/2010 TIMOTHY FINISHING PAN OPERATOR, WOLF S 536.8 Dyspepsia And Other Specified Disorders Of Function Of Stomach 08/22/2010 TIMOTHY FINISHING PAN OPERATOR, WOLF S 461.9 Sinusitis Acute 08/22/2010 TIMOTHY FINISHING PAN OPERATOR, WOLF S 536.8 Dyspepsia And Other Specified [...] APRN T 466.0 Acute Bronchitis 10/24/2010 TIMOTHY FINISHING PAN OPERATOR, WOLF S 466.0 Acute Bronchitis 10/24/2010 466.0 Acute Bronchitis 10/24/2010 NICOLE DO, MORAIMA K 466.0 Acute Bronchitis 10/24/2010 466.0 Acute Bronchitis 10/24/2010 466.0 Acute Bronchitis 10/24/2010 466.0 Acute Bronchitis 10/24/2010 466.0 Acute Bronchitis 10/24/2010 NORMA DDS, JUAREZ M 466.0 Acute Bronchitis 10/24/2010 NORMA WILCOXS, JUAREZ M 466.0 Acute Bronchitis 10/24/2010 NICOLE DO, MORAIMA K 466.0 Acute Bronchitis 10/24/2010 TIMOTHY FINISHING PAN OPERATOR, WOLF S 466.0 Acute Bronchitis 10/24/2010 TIMOTHY FINISHING PAN OPERATOR, WOLF S 466.0 Acute Bronchitis 10/24/2010 TIMOTHY FINISHING PAN OPERATOR, WOLF S 466.0 Acute Bronchitis 10/24/2010 TIMOTHY FINISHING PAN OPERATOR, WOLF S 466.0 Acute Bronchitis 10/24/2010 TIMOTHY FINISHING PAN OPERATOR, WOLF S 466.0 Acute Bronchitis 10/24/2010 GAGANDEEP WILCOXS, MELISSA Raymundo 466.0 Acute Bronchitis 10/24/2010 BRITNEY WILCOXS, MARIA LUISA 466.0 Acute Bronchitis 10/24/2010 HUSAM ORLANDO APRN T 466.0 Acute Bronchitis 10/24/2010 TIMOTHY FINISHING PAN OPERATOR, WOLF S 466.0 Acute Bronchitis 10/24/2010 TIMOTHY FINISHING PAN OPERATOR, WOLF S 466.0 Acute Bronchitis 10/24/2010 KADY MATTHEWS MD 466.0 Acute Bronchitis 10/24/2010 TIMOTHY FINISHING PAN OPERATOR, WOLF S 466.0 Acute Bronchitis 10/24/2010 TIMOTHY FINISHING PAN OPERATOR, WOLF S 466.0 Acute Bronchitis 10/24/2010 BRITNEY [...] Or More Phalanges Of Foot 12/05/2010 TIMOTHY FINISHING PAN OPERATOR, WOLF S 826.0 Closed Fracture Of One [...] Or More Phalanges Of Foot 12/05/2010 TIMOTHY FINISHING PAN OPERATOR, WOLF S 826.0 Closed Fracture Of One Or More Phalanges Of Foot 12/05/2010 TIMOTHY FINISHING PAN OPERATOR, WOLF S 826.0 Closed Fracture Of One Or More Phalanges Of Foot 12/05/2010 TIMOTHY FINISHING PAN OPERATOR, WOLF S 826.0 Closed Fracture Of One Or More Phalanges Of Foot 12/05/2010 TIMOTHY FINISHING PAN OPERATOR, WOLF S 826.0 Closed Fracture Of One Or More Phalanges Of Foot 12/05/2010 TIMOTHY FINISHING PAN OPERATOR, WOLF S 826.0 Closed Fracture Of One Or More Phalanges Of Foot 12/05/2010 GAGANDEEP WILCOXS, MELISSA Raymundo 826.0 Closed Fracture Of One Or More Phalanges Of Foot 12/05/2010 BRITNEY MARTINES, MARIA LUISA 826.0 Closed Fracture Of One Or More Phalanges Of Foot 12/05/2010 HUSAM ORLANDO APRN T 826.0 Closed Fracture Of One Or More Phalanges Of Foot 12/05/2010 TIMOTHY FINISHING PAN OPERATOR, WOLF S 826.0 Closed Fracture Of One Or More Phalanges Of Foot 12/05/2010 TIMOTHY FINISHING PAN OPERATOR, WOLF S 826.0 Closed Fracture Of One [...] S 465.9 Upper Respiratory Infection 11/03/2011 TIMOTHY FINISHING PAN OPERATOR, WOLF S 465.9 Upper Respiratory Infection 11/03/2011 TIMOTHY FINISHING PAN OPERATOR, WOLF S 465.9 Upper Respiratory Infection 11/03/2011 TIMOTHY FINISHING PAN OPERATOR, WOLF S 465.9 Upper Respiratory Infection 11/03/2011 TIMOTHY FINISHING PAN OPERATOR, WOLF S 465.9 Upper Respiratory Infection 11/03/2011 GAGANDEEP WILCOXS, MELISSA Raymundo 465.9 Upper Respiratory Infection 11/03/2011 TANJASON WILCOXS, MARIA LUISA 465.9 Upper Respiratory Infection 11/03/2011 HUSAM ORLANDO APRN 465.9 Upper Respiratory Infection 11/03/2011 TIMOTHY FINISHING PAN OPERATOR, WOLF S 465.9 Upper Respiratory Infection 11/03/2011 TIMOTHY FINISHING PAN OPERATOR, WOLF S 465.9 Upper Respiratory Infection 11/03/2011 CASSIE DOMINGUEZ, KADY Raymundo 465.9 Upper Respiratory Infection 11/03/2011 TIMOTHY FINISHING PAN OPERATOR, WOLF S 465.9 Upper Respiratory Infection 11/03/2011 TIMOTHY FINISHING PAN OPERATOR, WOLF S 465.9 Upper Respiratory Infection 11/03/2011 [...] V04.81 FLU DX (MEDICARE ONLY) 11/28/2011 TIMOTHY FINISHING PAN OPERATOR, WOLF S V04.81 FLU DX (MEDICARE ONLY) 11/28/2011 TIMOTHY FINISHING PAN OPERATOR, WOLF S V04.81 FLU DX (MEDICARE ONLY) 11/28/2011 TIMOTHY FINISHING PAN OPERATOR, WOLF S V04.81 FLU DX (MEDICARE ONLY) 11/28/2011 TIMOTHY FINISHING PAN OPERATOR, WOLF S V04.81 FLU DX (MEDICARE ONLY) 11/28/2011 TIMOTHY FINISHING PAN OPERATOR, WOLF S V04.81 FLU DX (MEDICARE ONLY) 11/28/2011 GAGANDEEP MARTINES, MELISSA Raymundo V04.81 FLU DX (MEDICARE ONLY) 11/28/2011 BRITNEY WILCOXS, MARIA LUISA V04.81 FLU DX (MEDICARE ONLY) 11/28/2011 HUSAM ORLANDO APRN V04.81 FLU DX (MEDICARE ONLY) 11/28/2011 TIMOTHY FINISHING PAN OPERATOR, WOLF S V04.81 FLU DX (MEDICARE ONLY) 11/28/2011 TIMOTHY FINISHING PAN OPERATOR, WOLF S V04.81 FLU DX (MEDICARE ONLY) 11/28/2011 CASSIE DOMINGUEZ, KADY Raymundo V04.81 FLU DX (MEDICARE ONLY) 11/28/2011 TIMOTHY FINISHING PAN OPERATOR, WOLF S V04.81 FLU DX (MEDICARE ONLY) [...] [place] APRN T 788.1 DYSURIA 02/21/2012 TIMOTHY FINISHING PAN OPERATOR, WOLF S 427.9 CARDIAC DYSRHYTHMIA UNSPECIFIED 02/21/2012 TIMOTHY FINISHING PAN OPERATOR, WOLF S 788.1 DYSURIA 02/21/2012 427.9 CARDIAC [...] DO MORAIMA K 788.1 DYSURIA 02/21/2012 TIMOTHY FINISHING PAN OPERATOR, WOLF S 427.9 CARDIAC DYSRHYTHMIA UNSPECIFIED 02/21/2012 TIMOTHY FINISHING PAN OPERATOR, WOLF S 788.1 DYSURIA 02/21/2012 TIMOTHY FINISHING PAN OPERATOR, WOLF S 427.9 CARDIAC DYSRHYTHMIA UNSPECIFIED 02/21/2012 TIMOTHY FINISHING PAN OPERATOR, WOLF S 788.1 DYSURIA 02/21/2012 TIMOTHY FINISHING PAN OPERATOR, WOLF S 427.9 CARDIAC DYSRHYTHMIA UNSPECIFIED 02/21/2012 TIMOTHY FINISHING PAN OPERATOR, WOLF S 788.1 DYSURIA 02/21/2012 TIMOTHY FINISHING PAN OPERATOR, WOLF S 427.9 CARDIAC DYSRHYTHMIA UNSPECIFIED 02/21/2012 TIMOTHY FINISHING PAN OPERATOR, WOLF S 788.1 DYSURIA 02/21/2012 TIMOTHY FINISHING PAN OPERATOR, WOLF S 427.9 CARDIAC DYSRHYTHMIA UNSPECIFIED 02/21/2012 TIMOTHY FINISHING PAN OPERATOR, WOLF S 788.1 DYSURIA 02/21/2012 WHITE DDS, MELISSA J 427.9 CARDIAC DYSRHYTHMIA UNSPECIFIED 02/21/2012 WHITE DDS, MELISSA J 788.1 DYSURIA 02/21/2012 TAN DDS, MARIA LUISA 427.9 CARDIAC DYSRHYTHMIA UNSPECIFIED 02/21/2012 TAN DDS, MARIA LUISA 788.1 DYSURIA 02/21/2012 HUSAM [place] APRN 427.9 CARDIAC DYSRHYTHMIA UNSPECIFIED 02/21/2012 HUSAM [place] APRN 788.1 DYSURIA 02/21/2012 TIMOTHY FINISHING PAN OPERATOR, WOLF S 427.9 CARDIAC DYSRHYTHMIA UNSPECIFIED 02/21/2012 TIMOTHY FINISHING PAN OPERATOR, WOLF S 788.1 DYSURIA 02/21/2012 TIMOTHY FINISHING PAN OPERATOR, WOLF S 427.9 CARDIAC DYSRHYTHMIA UNSPECIFIED 02/21/2012 TIMOTHY FINISHING PAN OPERATOR, WOLF S 788.1 DYSURIA 02/21/2012 CASSIE DOMINGUEZ, KADY Raymundo 427.9 CARDIAC DYSRHYTHMIA UNSPECIFIED 02/21/2012 CASSIE DOMINGUEZ, KADY Raymundo 788.1 DYSURIA 02/21/2012 TIMOTHY FINISHING PAN OPERATOR, WOLF S 427.9 CARDIAC DYSRHYTHMIA UNSPECIFIED 02/21/2012 TIMOTHY FINISHING PAN OPERATOR, WOLF S 788.1 DYSURIA 02/21/2012 TIMOTHY FINISHING PAN OPERATOR, WOLF S 427.9 CARDIAC DYSRHYTHMIA UNSPECIFIED 02/21/2012 TIMOTHY FINISHING PAN OPERATOR, WOLF S 788.1 DYSURIA 02/21/2012 TAN DDS, [...] LILLIAN LOCKETTA K 784.42 DYSPHONIA 11/20/2012 TIMOTHY FINISHING PAN OPERATOR, WOLF S 564.00 UNSPECIFIED CONSTIPATION 11/20/2012 TIMOTHY FINISHING PAN OPERATOR, WOLF S 784.42 DYSPHONIA 11/20/2012 TIMOTHY FINISHING PAN OPERATOR, WOLF S 564.00 UNSPECIFIED CONSTIPATION 11/20/2012 TIMOTHY FINISHING PAN OPERATOR, WOLF S 784.42 DYSPHONIA 11/20/2012 TIMOTHY FINISHING PAN OPERATOR, WOLF S 564.00 UNSPECIFIED CONSTIPATION 11/20/2012 TIMOTHY FINISHING PAN OPERATOR, WOLF S 784.42 DYSPHONIA 11/20/2012 TIMOTHY FINISHING PAN OPERATOR, WOLF S 564.00 UNSPECIFIED CONSTIPATION 11/20/2012 TIMOTHY FINISHING PAN OPERATOR, WOLF S 784.42 DYSPHONIA 11/20/2012 TIMOTHY FINISHING PAN OPERATOR, WOLF S 564.00 UNSPECIFIED CONSTIPATION 11/20/2012 TIMOTHY FINISHING PAN OPERATOR, WOLF S 784.42 DYSPHONIA 11/20/2012 WHITE DDS, MELISSA J 564.00 UNSPECIFIED CONSTIPATION 11/20/2012 WHITE DDS, MELISSA J 784.42 DYSPHONIA 11/20/2012 TAN DDS, MARIA LUISA 564.00 UNSPECIFIED CONSTIPATION 11/20/2012 TAN DDS, MARIA LUISA 784.42 DYSPHONIA 11/20/2012 JOHANNY KAN, HUSAM T 564.00 UNSPECIFIED CONSTIPATION 11/20/2012 HUSAM [place] APRN T 784.42 DYSPHONIA 11/20/2012 TIMOTHY FINISHING PAN OPERATOR, WOLF S 564.00 UNSPECIFIED CONSTIPATION 11/20/2012 TIMOTHY FINISHING PAN OPERATOR, WOLF S 784.42 DYSPHONIA 11/20/2012 TIMOTHY FINISHING PAN OPERATOR, WOLF S 564.00 UNSPECIFIED CONSTIPATION 11/20/2012 TIMOTHY FINISHING PAN OPERATOR, WOLF S 784.42 DYSPHONIA 11/20/2012 CASSIE DOMINGUEZ, KADY Raymundo 564.00 UNSPECIFIED CONSTIPATION 11/20/2012 CASSIE DOMINGUEZ, KADY Raymundo 784.42 DYSPHONIA 11/20/2012 TIMOTHY FINISHING PAN OPERATOR, WOLF S 564.00 UNSPECIFIED CONSTIPATION 11/20/2012 TIMOTHY FINISHING PAN OPERATOR, WOLF S 784.42 DYSPHONIA 11/20/2012 TIMOTHY FINISHING PAN OPERATOR, WOLF S 564.00 UNSPECIFIED CONSTIPATION 11/20/2012 TIMOTHY FINISHING PAN OPERATOR, WOLF S 784.42 DYSPHONIA 11/20/2012 TAN DDS, [...] 465.9 UPPER RESPIRATORY INFECTION 01/03/2013 NORMA DDS, JAUREZ Pierre 465.9 UPPER RESPIRATORY INFECTION 01/03/2013 MORAIMA NICOLE DO K 465.9 UPPER RESPIRATORY INFECTION 01/03/2013 TIMOTHY GAINESN, WOLF S 465.9 UPPER RESPIRATORY INFECTION 01/03/2013 TIMOTHY FINISHING PAN OPERATOR, WOLF S 465.9 UPPER RESPIRATORY INFECTION 01/03/2013 TIMOTHY FINISHING PAN OPERATOR, WOLF S 465.9 UPPER RESPIRATORY INFECTION 01/03/2013 TIMOTHY GAINESN, WOLF S 465.9 UPPER RESPIRATORY INFECTION 01/03/2013 TIMOTHY FINISHING PAN OPERATOR, WOLF S 465.9 UPPER RESPIRATORY INFECTION 01/03/2013 GAGANDEEP MARTINES, MELISSA Raymundo 465.9 UPPER RESPIRATORY INFECTION 01/03/2013 BRITNEY MARTINES, MARIA LUISA 465.9 UPPER RESPIRATORY INFECTION 01/03/2013 HUSAM [place]LAND[place] APRN 465.9 UPPER RESPIRATORY INFECTION 01/03/2013 TIMOTHY GAINESN, WOLF S 465.9 UPPER RESPIRATORY INFECTION 01/03/2013 TIMOTHY KAN, WOLF S 465.9 UPPER RESPIRATORY INFECTION 01/03/2013 CASSIE DOMINGUEZ, KADY Raymundo 465.9 UPPER RESPIRATORY INFECTION 01/03/2013 TIMOTHY FINISHING PAN OPERATOR, WOLF S 465.9 UPPER RESPIRATORY INFECTION 01/03/2013 TIMOTHY FINISHING PAN OPERATOR, WOLF S 465.9 UPPER RESPIRATORY INFECTION 01/03/2013 [...] Wound Of Head Without Complication 02/03/2013 TIMOTHY FINISHING PAN OPERATOR, WOLF S 873.8 Other And Unspecified Open Wound Of Head Without Complication 02/03/2013 TIMOTHY FINISHING PAN OPERATOR, WOLF S 873.8 Other And Unspecified Open Wound Of Head Without Complication 02/03/2013 TIMOTHY FINISHING PAN OPERATOR, WOLF S 873.8 Other And Unspecified Open Wound Of Head Without Complication 02/03/2013 TIMOTHY FINISHING PAN OPERATOR, WOLF S 873.8 Other And Unspecified Open Wound Of Head Without Complication 02/03/2013 TIMOTHY FINISHING PAN OPERATOR, WOLF S 873.8 Other And Unspecified Open Wound Of Head Without Complication 02/03/2013 GAGANDEEP WILCOXS, MELISSA Raymundo 873.8 Other And Unspecified Open Wound Of Head Without Complication 02/03/2013 BRITNEY WILCOXS, MARIA LUISA 873.8 Other And Unspecified Open Wound Of Head Without Complication 02/03/2013 HUSAM ORLAND[place] APRN 873.8 Other And Unspecified Open Wound Of Head Without Complication 02/03/2013 TIMOTHY FINISHING PAN OPERATOR, WOLF S 873.8 Other And Unspecified Open Wound Of Head Without Complication 02/03/2013 TIMOTHY FINISHING PAN OPERATOR, WOLF S 873.8 Other And Unspecified Open Wound Of Head Without Complication 02/03/2013 CASSIE DOMINGUEZ, KADY Raymundo 873.8 Other And Unspecified Open Wound Of Head Without Complication 02/03/2013 TIMOTHY FINISHING PAN OPERATOR, WOLF S 873.8 Other And Unspecified Open Wound Of Head Without Complication 02/03/2013 TIMOTHY FINISHING PAN OPERATOR, WOLF S 873.8 Other And Unspecified Open [...] NICOLE DO V58.32 SUTURE REMOVAL 02/10/2013 TIMOTHY FINISHING PAN OPERATOR, WOLF S V58.32 SUTURE REMOVAL 02/10/2013 TIMOTHY FINISHING PAN OPERATOR, WOLF S V58.32 SUTURE REMOVAL 02/10/2013 TIMOTHY FINISHING PAN OPERATOR, WOLF S V58.32 SUTURE REMOVAL 02/10/2013 TIMOTHY FINISHING PAN OPERATOR, WOLF S V58.32 SUTURE REMOVAL 02/10/2013 TIMOTHY FINISHING PAN OPERATOR, WOLF S V58.32 SUTURE REMOVAL 02/10/2013 GAGANDEEP WILCOXS, MELISSA Raymundo V58.32 SUTURE REMOVAL 02/10/2013 BRITNEY WILCOXSMARIA LUISA V58.32 SUTURE REMOVAL 02/10/2013 JOHANNY KAN, HUSAM Hall V58.32 SUTURE REMOVAL 02/10/2013 TIMOTHY FINISHING PAN OPERATOR, WOLF S V58.32 SUTURE REMOVAL 02/10/2013 TIMOTHY FINISHING PAN OPERATOR, WOLF S V58.32 SUTURE REMOVAL 02/10/2013 CASSIE DOMINGUEZ, KADY Raymundo V58.32 SUTURE REMOVAL 02/10/2013 TIMOTHY FINISHING PAN OPERATOR, WOLF S V58.32 SUTURE REMOVAL 02/10/2013 TIMOTHY FINISHING PAN OPERATOR, WOLF S V58.32 SUTURE REMOVAL 02/10/2013 BRITNEY [...] K V76.10 BREAST CANCER SCREENING 04/03/2013 TIMOTHY FINISHING PAN OPERATOR, WOLF S V65.49 OTHER SPECIFIED COUNSELING 04/03/2013 TIMOTHY FINISHING PAN OPERATOR, WOLF S V76.10 BREAST CANCER SCREENING 04/03/2013 TIMOTHY FINISHING PAN OPERATOR, WOLF S V65.49 OTHER SPECIFIED COUNSELING 04/03/2013 TIMOTHY FINISHING PAN OPERATOR, WOLF S V76.10 BREAST CANCER SCREENING 04/03/2013 TIMOTHY FINISHING PAN OPERATOR, WOLF S V65.49 OTHER SPECIFIED COUNSELING 04/03/2013 TIMOTHY FINISHING PAN OPERATOR, WOLF S V76.10 BREAST CANCER SCREENING 04/03/2013 TIMOTHY FINISHING PAN OPERATOR, WOLF S V65.49 OTHER SPECIFIED COUNSELING 04/03/2013 TIMOTHY FINISHING PAN OPERATOR, WOLF S V76.10 BREAST CANCER SCREENING 04/03/2013 TIMOTHY FINISHING PAN OPERATOR, WOLF S V65.49 OTHER SPECIFIED COUNSELING 04/03/2013 TIMOTHY FINISHING PAN OPERATOR, WOLF S V76.10 BREAST CANCER SCREENING 04/03/2013 GAGANDEEP WILCOXSMLEISSA V65.49 OTHER SPECIFIED COUNSELING 04/03/2013 GAGANDEEP WILCOXSMELISSA V76.10 BREAST CANCER SCREENING 04/03/2013 TAN JERISMARIA LUISA V65.49 OTHER SPECIFIED COUNSELING 04/03/2013 TAN JERIS, MARIA LUISA V76.10 BREAST CANCER SCREENING 04/03/2013 HUSAM [place] APRN V65.49 OTHER SPECIFIED COUNSELING 04/03/2013 HUSAM [place] APRN V76.10 BREAST CANCER SCREENING 04/03/2013 TIMOTHY FINISHING PAN OPERATOR, WOLF S V65.49 OTHER SPECIFIED COUNSELING 04/03/2013 TIMOTHY FINISHING PAN OPERATOR, WOLF S V76.10 BREAST CANCER SCREENING 04/03/2013 TIMOTHY FINISHING PAN OPERATOR, WOLF S V65.49 OTHER SPECIFIED COUNSELING 04/03/2013 TIMOTHY KAN WOLF S V76.10 BREAST CANCER SCREENING 04/03/2013 KADY MATTHEWS MD V65.49 OTHER SPECIFIED COUNSELING 04/03/2013 KADY MATTHEWS MD V76.10 BREAST CANCER SCREENING 04/03/2013 TIMOTHY FINISHING PAN OPERATOR, WOLF S V65.49 OTHER SPECIFIED COUNSELING 04/03/2013 TIMOTHY KAN, WOLF S V76.10 BREAST CANCER SCREENING 04/03/2013 TIMOTHY FINISHING PAN OPERATOR, WOLF S V65.49 OTHER SPECIFIED COUNSELING 04/03/2013 [...] MATTHEWS MD Ot 414.01 CORONARY ATHEROSCLEROSIS OF [place] CORON 11/07/2014 KADY MATTHEWS MD Ot 427.89 [...] F32.9 MAJOR DEPRESSIVE DISORDER, SINGLE EPISOD 02/07/2016 FRDE DOS SANTOS MD Ot F41.9 ANXIETY DISORDER, [...] MD, Ot I25.10 ATHSCL HEART DISEASE OF [place] CORONARY 05/02/2016 KADY MATTHEWS MD Ot I49.3 [...] V72.84 EXAM PRE-OPERATIVE NOS 05/04/2016 WOLF AGUIRRE FLUE DUST LABORER Ot V76.12 OTH SCREEN MAMMO-MALIGN NEOPLASM OF [place] 05/04/2016 WOLF AGUIRRE FLUE DUST LABORER Ot Z12.31 ENCNTR SCREEN MAMMOGRAM FOR MALIGNANT NE 05/04/2016 DEEPTI MATHUR APRN Ot V76.12 OTH SCREEN MAMMO-MALIGN NEOPLASM OF [place] 05/04/2016 CARITO DOMINGUEZ, BOB M Ot V72.84 EXAM PRE-OPERATIVE NOS 05/04/2016 WOLF AGUIRRE FLUE DUST LABORER Ot V76.12 OTH SCREEN MAMMO-MALIGN NEOPLASM OF [place] 05/04/2016 WOLF AGUIRRE FLUE DUST LABORER Ot Z12.31 ENCNTR SCREEN MAMMOGRAM FOR MALIGNANT NE 05/06/2016 FRANCE NAVARRO MD Ot D64.9 ANEMIA, UNSPECIFIED 05/06/2016 FRANCE NAVARRO MD Ot F32.9 MAJOR DEPRESSIVE DISORDER, SINGLE EPISOD 05/06/2016 FRANCE NAVARRO MD E Ot 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 05/06/2016 FRANCE NAVARRO MD E Ot I10 ESSENTIAL (PRIMARY) HYPERTENSION 05/06/2016 FRANCE NAVARRO MD E Ot I25.10 ATHSCL HEART DISEASE OF [place] CORONARY 05/06/2016 FRANCE NAVARRO MD E Ot [...] MD Ot I25.10 ATHSCL HEART DISEASE OF [place] CORONARY 05/12/2016 FRANCE NAVARRO MD Ot I49.3 [...] PAIN 08/10/2016 MEI HILL MD Ot Z79.82 HARP REPAIRER (CURRENT) USE OF ASPIRIN 08/10/2016 MEI HILL MD Ot Z79.899 OTHER HARP REPAIRER (CURRENT) DRUG THERAPY 08/27/2016 DEEPTI MATHUR APRN [...] Mcneali W I25.10 ATHSCL HEART DISEASE OF [place] CORONARY ARTERY W/O ANG PCTRS 11/05/2016 Albino [...] APRN Ot I25.10 ATHSCL HEART DISEASE OF [place] CORONARY 03/08/2017 VAN GILLETTE APRN Ot M25.551 PAIN IN RIGHT HIP 03/08/2017 VAN GILLETTE APRN Ot M25.552 PAIN IN LEFT HIP 03/08/2017 VAN GILLETTE APRN Ot Z79.01 HARP REPAIRER (CURRENT) USE OF ANTICOAGULANT 03/08/2017 VAN GILLETTE APRN Ot Z79.82 ASSISTED (CURRENT) USE OF ASPIRIN 03/08/2017 VAN GILLETTE APRN Ot Z79.899 OTHER ASSISTED (CURRENT) DRUG THERAPY 03/08/2017 VAN GILLETTE APRN Ot Z91.14 PATIENT'S OTHER NONCOMPLIANCE WITH MEDIC 03/08/2017 VAN GILLETTE APRN Ot Z95.1 PRESENCE OF AORTOCORONARY BYPASS GRAFT 03/08/2017 VAN GILLETTE APRN Ot Z96.641 PRESENCE OF RIGHT ARTIFICIAL HIP JOINT 03/08/2017 Jazlyn Mcneal W 268.9 UNSPECIFIED VITAMIN D DEFICIENCY 03/08/2017 Jazlyn Mcneal W 272.4 OTHER AND UNSPECIFIED HYPERLIPIDEMIA 03/08/2017 Jazlyn Mcneal W 290.41 03/08/2017 Jazlyn Mcneal W 300.00 [...] Mcneal W I25.10 ATHSCL HEART DISEASE OF [place] CORONARY ARTERY W/O ANG PCTRS 03/08/2017 Mcneal, Jazlyn W I48.0 PAROXYSMAL ATRIAL FIBRILLATION 03/08/2017 Jazlyn Mcneal W K21.9 GASTRO-ESOPHAGEAL REFLUX DISEASE WITHOUT ESOPHAGITIS 03/08/2017 Jazlyn Mcneal W K59.09 OTHER CONSTIPATION 03/08/2017 Jazlyn Mcneal W V58.61 LONG-TERM (CURRENT) USE OF ANTICOAGULANTS 03/08/2017 Jazlyn Mcneal W Z79.01 ASSISTED (CURRENT) USE OF ANTICOAGULANTS 03/11/2017 VAN GILLETTE APRN Ot F41.9 ANXIETY DISORDER, UNSPECIFIED 03/11/2017 VAN GILLETTE APRN Ot I10 ESSENTIAL (PRIMARY) HYPERTENSION 03/11/2017 VAN GILLETTE APRN Ot I25.10 ATHSCL HEART DISEASE OF [place] CORONARY 03/11/2017 VAN GILLETTE APRN Ot M25.551 PAIN IN RIGHT HIP 03/11/2017 VAN GILLETTE APRN Ot M25.552 PAIN IN LEFT HIP 03/11/2017 VAN GILLETTE APRN Ot Z79.01 ASSISTED (CURRENT) USE OF ANTICOAGULANT 03/11/2017 VAN GILLETTE APRN Ot Z79.82 ASSISTED (CURRENT) USE OF ASPIRIN 03/11/2017 VAN GILLETTE APRN Ot Z79.899 OTHER HARP REPAIRER (CURRENT) DRUG THERAPY 03/11/2017 VAN GILLETTE APRN [...] APRN Ot I25.10 ATHSCL HEART DISEASE OF [place] CORONARY 03/11/2017 VAN GILLETTE APRN Ot M25.551 PAIN IN RIGHT HIP 03/11/2017 VAN GILLETTE APRN Ot M25.552 PAIN IN LEFT HIP 03/11/2017 VAN GILLETTE APRN Ot Z79.01 ASSISTED (CURRENT) USE OF ANTICOAGULANT 03/11/2017 VAN GILLETTE APRN Ot Z79.82 ASSISTED (CURRENT) USE OF ASPIRIN 03/11/2017 VAN GILLETTE APRN Ot Z79.899 OTHER ASSISTED (CURRENT) DRUG THERAPY 03/11/2017 VAN GILLETTE APRN [...] MD Ot I25.10 ATHSCL HEART DISEASE OF [place] CORONARY 07/30/2017 MEI HILL MD Ot K21.9 GASTRO-ESOPHAGEAL REFLUX DISEASE WITHOUT 07/30/2017 MEI HILL MD Ot K59.00 CONSTIPATION, UNSPECIFIED 07/30/2017 MEI HILL MD Ot M19.90 UNSPECIFIED OSTEOARTHRITIS, UNSPECIFIED 07/30/2017 MEI HILL MD Ot R10.84 GENERALIZED ABDOMINAL PAIN 07/30/2017 MEI HILL MD Ot Z79.01 ASSISTED (CURRENT) USE OF ANTICOAGULANT 07/30/2017 MEI HILL MD Ot Z79.82 ASSISTED (CURRENT) USE OF ASPIRIN 07/30/2017 MEI HILL [...] MD, Ot I25.10 ATHSCL HEART DISEASE OF [place] CORONARY 08/01/2017 MEI HILL MD, Ot K21.9 GASTRO-ESOPHAGEAL REFLUX DISEASE WITHOUT 08/01/2017 MEI HILL MD, Ot K59.00 CONSTIPATION, UNSPECIFIED 08/01/2017 MEI HILL MD, Ot M19.90 UNSPECIFIED OSTEOARTHRITIS, UNSPECIFIED 08/01/2017 MEI HILL MD Ot R10.84 GENERALIZED ABDOMINAL PAIN 08/01/2017 MEI HILL MD, Ot Z79.01 ASSISTED (CURRENT) USE OF ANTICOAGULANT 08/01/2017 MEI HILL MD Ot Z79.82 HARP REPAIRER (CURRENT) USE OF ASPIRIN 08/01/2017 MEI HILL [...] MAMMO-MALIGN NEOPLASM OF [place] 09/13/2017 TIMOTHY, WOLF FLUE DUST LABORER Ot Z12.31 ENCNTR SCREEN MAMMOGRAM FOR MALIGNANT [...] Z01.818 ENCOUNTER FOR OTHER PREPROCEDURAL EXAMIN 09/18/2017 SHANDA SAINI MD, Ot F03.90 UNSPECIFIED DEMENTIA WITHOUT BEHAVIORAL 09/18/2017 SHANDA SAINI MD Ot I25.10 ATHSCL HEART DISEASE OF [place] CORONARY 09/18/2017 SHANDA SAINI MD Ot K21.0 [...] UNSPECIFIED 09/18/2017 SHANDA SAINI MD Ot Z79.82 ASSISTED (CURRENT) USE OF ASPIRIN 09/18/2017 SHANDA SAINI MD, Ot Z79.899 OTHER ASSISTED (CURRENT) DRUG THERAPY 09/18/2017 SHANDA SAINI MD Ot Z95.1 PRESENCE OF AORTOCORONARY BYPASS GRAFT 09/18/2017 SHANDA SAINI MD Ot Z96.643 PRESENCE OF ARTIFICIAL HIP JOINT, BILATE 09/19/2017 SHANDA SAINI MD Ot F03.90 UNSPECIFIED DEMENTIA WITHOUT BEHAVIORAL 09/19/2017 SHANDA SAINI MD Ot I25.10 ATHSCL HEART DISEASE OF [place] CORONARY 09/19/2017 SHANDA SAINI MD Ot K21.0 [...] HEMORRHOIDS 09/19/2017 SHANDA SAINI MD Ot Z79.82 HARP REPAIRER (CURRENT) USE OF ASPIRIN 09/19/2017 SHANDA SAINI MD, Ot Z79.899 OTHER HARP REPAIRER (CURRENT) DRUG THERAPY 09/19/2017 SHANDA SAINI MD Ot Z95.1 PRESENCE OF AORTOCORONARY BYPASS GRAFT 09/19/2017 SHANDA SAINI MD Ot Z96.643 PRESENCE OF ARTIFICIAL HIP JOINT, BILATE 09/25/2017 DEEPTI MATHUR FINISHING PAN OPERATOR Ot V76.12 OTH SCREEN MAMMO-MALIGN NEOPLASM OF [place] 09/25/2017 CARITO DOMINGUEZ, BOB Pierre Ot V72.84 EXAM PRE-OPERATIVE NOS 09/25/2017 WOLF AGUIRRE Ot V76.12 OTH SCREEN MAMMO-MALIGN NEOPLASM OF [place] 09/25/2017 WOLF AGUIRRE FLUE DUST LABORER Ot Z12.31 ENCNTR SCREEN MAMMOGRAM FOR MALIGNANT NE 09/27/2017 SHANDA SAINI MD Ot F03.90 UNSPECIFIED DEMENTIA WITHOUT BEHAVIORAL 09/27/2017 SHANDA SAINI MD Ot I25.10 ATHSCL HEART DISEASE OF [place] CORONARY 09/27/2017 SHANDA SAINI MD Ot K21.0 [...] UNSPECIFIED 09/27/2017 SHANDA SAINI MD, Ot Z79.82 HARP REPAIRER (CURRENT) USE OF ASPIRIN 09/27/2017 SHANDA SAINI MD, Ot Z79.899 OTHER HARP REPAIRER (CURRENT) DRUG THERAPY 09/27/2017 SHANDA SAINI MD, [...] 12/30/2017 MARILEE, HERB W 296.30 12/30/2017 MARILEE HERB A 297.1 12/30/2017 MARILEE, HERB W 300.02 12/30/2017 MARILEE, HERB W 300.82 12/30/2017 MARILEE, HERB W 401.0 12/30/2017 MARILEE HERB W 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 12/30/2017 MARILEE HERB W 564.1 12/30/2017 HUNT, HERB W 780.52 INSOMNIA, UNSPECIFIED 12/30/2017 HUNT, HERB W E55.9 VITAMIN D DEFICIENCY, UNSPECIFIED 12/30/2017 HUNT, HERB W E78.5 HYPERLIPIDEMIA, UNSPECIFIED 12/30/2017 HUNT, HERB W F01.51 12/30/2017 HUNT, HERB W F03.90 UNSPECIFIED DEMENTIA WITHOUT BEHAVIORAL DISTURBANCE 12/30/2017 HUNT, HERB A F22 12/30/2017 HUNT, HERB W F33.9 MAJOR DEPRESSIVE DISORDER, RECURRENT, UNSPECIFIED 12/30/2017 HUNT, HERB W F41.1 GENERALIZED ANXIETY DISORDER 12/30/2017 HUNT, HERB W F45.1 12/30/2017 HUNT, HERB W G47.00 INSOMNIA, UNSPECIFIED 12/30/2017 HUNT, HERB W I10 ESSENTIAL (PRIMARY) HYPERTENSION 12/30/2017 HUNT, HERB W I25.10 ATHSCL HEART DISEASE OF [place] CORONARY ARTERY W/O ANG PCTRS 12/30/2017 MARILEE, HERB W K58.1 IRRITABLE BOWEL SYNDROME WITH CONSTIPATION 08/20/2018 DEEPTI MATHUR APRN Ot V76.12 OTH SCREEN MAMMO-MALIGN NEOPLASM OF [place] 08/20/2018 CARITO DOMINGUEZ, BOB Pierre Ot V72.84 EXAM PRE-OPERATIVE NOS 08/20/2018 WOLF AGUIRRE Ot V76.12 OTH SCREEN MAMMO-MALIGN NEOPLASM OF [place] 08/20/2018 WOLF AGUIRRE FLUE DUST LABORER Ot Z12.31 ENCNTR SCREEN MAMMOGRAM FOR MALIGNANT NE 08/20/2018 MANUEL BOONE FLUE DUST LABORER Ot E78.00 PURE HYPERCHOLESTEROLEMIA, UNSPECIFIED 08/20/2018 MELY, MANUEL FLUE DUST LABORER Ot F32.9 MAJOR DEPRESSIVE DISORDER, SINGLE EPISOD 08/20/2018 MELY, MANUEL FLUE DUST LABORER Ot F41.9 ANXIETY DISORDER, UNSPECIFIED 08/20/2018 MELY, MANUEL FLUE DUST LABORER Ot I10 ESSENTIAL (PRIMARY) HYPERTENSION 08/20/2018 MELY, MANUEL FLUE DUST LABORER Ot I25.10 ATHSCL HEART DISEASE OF [place] CORONARY 08/20/2018 MELY, MANUEL FLUE DUST LABORER Ot K21.9 GASTRO-ESOPHAGEAL REFLUX DISEASE WITHOUT 08/20/2018 MELY, MANUEL FLUE DUST LABORER Ot K59.00 CONSTIPATION, UNSPECIFIED 08/20/2018 MELY, MANUEL FLUE DUST LABORER Ot Z79.82 HARP REPAIRER (CURRENT) USE OF ASPIRIN 08/20/2018 MELY, MANUEL FLUE DUST LABORER Ot Z82.49 FAMILY HX OF ISCHEM HEART DIS AND OTH DI 08/20/2018 MELY, MANUEL FLUE DUST LABORER Ot Z87.440 PERSONAL HISTORY OF URINARY (TRACT) INFE 08/20/2018 MELY, MANUEL FLUE DUST LABORER Ot Z88.5 ALLERGY STATUS TO NARCOTIC AGENT STATUS 08/20/2018 MELY, MANUEL FLUE DUST LABORER Ot Z95.1 PRESENCE OF AORTOCORONARY BYPASS GRAFT 08/20/2018 MELY, MANUEL FLUE DUST LABORER Ot Z96.641 PRESENCE OF RIGHT ARTIFICIAL HIP JOINT 08/22/2018 MELY, MANUEL FLUE DUST LABORER Ot E78.00 PURE HYPERCHOLESTEROLEMIA, UNSPECIFIED 08/22/2018 MELY, MANUEL FLUE DUST LABORER Ot F32.9 MAJOR DEPRESSIVE DISORDER, SINGLE EPISOD 08/22/2018 MELY, MANUEL FLUE DUST LABORER Ot F41.9 ANXIETY DISORDER, UNSPECIFIED 08/22/2018 MELY, MANUEL FLUE DUST LABORER Ot I10 ESSENTIAL (PRIMARY) HYPERTENSION 08/22/2018 MELY, MANUEL FLUE DUST LABORER Ot I25.10 ATHSCL HEART DISEASE OF [place] CORONARY 08/22/2018 MELY, MANUEL FLUE DUST LABORER Ot K21.9 GASTRO-ESOPHAGEAL REFLUX DISEASE WITHOUT 08/22/2018 MELY, MANUEL FLUE DUST LABORER Ot K59.00 CONSTIPATION, UNSPECIFIED 08/22/2018 MELY, MANUEL FLUE DUST LABORER Ot Z79.82 HARP REPAIRER (CURRENT) USE OF ASPIRIN 08/22/2018 MELY, MANUEL FLUE DUST LABORER Ot Z82.49 FAMILY HX OF ISCHE[place] HEART DIS AND OTH DI 08/22/2018 MELY, MANUEL FLUE DUST LABORER Ot Z87.440 PERSONAL HISTORY OF URINARY (TRACT) INFE 08/22/2018 MELY, MANUEL FLUE DUST LABORER Ot Z88.5 ALLERGY STATUS TO NARCOTIC AGENT STATUS 08/22/2018 MELY, MANUEL FLUE DUST LABORER Ot Z95.1 PRESENCE OF AORTOCORONARY BYPASS GRAFT 08/22/2018 MELY, MANUEL FLUE DUST LABORER Ot Z96.641 PRESENCE OF RIGHT ARTIFICIAL HIP JOINT 08/22/2018 MELY, MNAUEL FLUE DUST LABORER Ot E78.00 PURE HYPERCHOLESTEROLEMIA, UNSPECIFIED 08/22/2018 MELY, MANUEL FLUE DUST LABORER Ot F32.9 MAJOR DEPRESSIVE DISORDER, SINGLE EPISOD 08/22/2018 MELY, MANUEL FLUE DUST LABORER Ot F41.9 ANXIETY DISORDER, UNSPECIFIED 08/22/2018 MELY, MANUEL FLUE DUST LABORER Ot I10 ESSENTIAL (PRIMARY) HYPERTENSION 08/22/2018 MELY, MANUEL FLUE DUST LABORER Ot I25.10 ATHSCL HEART DISEASE OF [place] CORONARY 08/22/2018 MELY, MANUEL FLUE DUST LABORER Ot K21.9 GASTRO-ESOPHAGEAL REFLUX DISEASE WITHOUT 08/22/2018 MELY, MANUEL FLUE DUST LABORER Ot K59.00 CONSTIPATION, UNSPECIFIED 08/22/2018 MELY, MANUEL FLUE DUST LABORER Ot Z79.82 HARP REPAIRER (CURRENT) USE OF ASPIRIN 08/22/2018 MELY, MANUEL FLUE DUST LABORER Ot Z82.49 FAMILY HX OF ISCHEM HEART DIS AND OTH DI 08/22/2018 MELYMANUEL Henson FLUE DUST LABORER Ot Z87.440 PERSONAL HISTORY OF URINARY (TRACT) INFE 08/22/2018 MELY, MANUEL FLUE DUST LABORER Ot Z88.5 ALLERGY STATUS TO NARCOTIC AGENT STATUS 08/22/2018 MELY MANUEL FLUE DUST LABORER Ot Z95.1 PRESENCE OF AORTOCORONARY BYPASS GRAFT 08/22/2018 MELY, MANUEL FLUE DUST LABORER Ot Z96.641 PRESENCE OF RIGHT ARTIFICIAL HIP JOINT 02/09/2019 CARITO DOMINGUEZ, BOB Pierre Ot V72.84 EXAM PRE-OPERATIVE NOS 02/09/2019 WOLF AGUIRRE FLUE DUST LABORER Ot V76.12 OTH SCREEN MAMMO-MALIGN NEOPLASM OF [place] 02/09/2019 WOLF AGUIRRE FLUE DUST LABORER Ot Z12.31 ENCNTR SCREEN MAMMOGRAM FOR MALIGNANT NE 02/09/2019 CARITO DOMINGUEZ, BOB Pierre Ot V72.84 EXAM PRE-OPERATIVE NOS 02/09/2019 WOLF AGUIRRE FLUE DUST LABORER Ot V76.12 OTH SCREEN MAMMO-MALIGN NEOPLASM OF [place] 02/09/2019 WOLF AGUIRREP Ot Z12.31 ENCNTR SCREEN MAMMOGRAM FOR MALIGNANT NE 02/11/2019 SERGIO DOMINGUEZ, MEI Chopra Ot E78.00 PURE HYPERCHOLESTEROLEMIA, UNSPECIFIED 02/11/2019 SERGIO DOMINGUEZ, MEI Chopra Ot F32.9 MAJOR DEPRESSIVE DISORDER, SINGLE EPISOD 02/11/2019 SERGIO DOMINGUEZ, MEI Chopra Ot F41.9 ANXIETY DISORDER, UNSPECIFIED 02/11/2019 MEI HILL MD Ot I10 ESSENTIAL (PRIMARY) HYPERTENSION 02/11/2019 MEI HILL MD Ot I25.10 ATHSCL HEART DISEASE OF [place] CORONARY 02/11/2019 MEI HILL MD Ot K21.9 GASTRO-ESOPHAGEAL REFLUX DISEASE WITHOUT 02/11/2019 MEI HILL MD Ot R06.00 DYSPNEA, UNSPECIFIED 02/11/2019 MEI HILL MD Ot R06.02 SHORTNESS OF BREATH 02/11/2019 MEI HILL MD Ot Z79.82 ASSISTED (CURRENT) USE OF ASPIRIN 02/11/2019 MEI HILL MD Ot Z82.49 FAMILY HX OF ISCHE[place] HEART DIS AND OTH DI 02/11/2019 MEI HILL MD Ot Z87.440 PERSONAL HISTORY OF URINARY (TRACT) INFE 02/11/2019 MEI HILL MD, Ot Z88.5 ALLERGY STATUS TO NARCOTIC AGENT STATUS 02/11/2019 MEI HILL MD Ot Z95.1 PRESENCE OF AORTOCORONARY BYPASS GRAFT 02/11/2019 MEI HILL MD Ot Z96.641 PRESENCE OF RIGHT ARTIFICIAL HIP JOINT 02/11/2019 MEI HILL MD Ot Z98.890 OTHER SPECIFIED POSTPROCEDURAL STATES Procedures Code Description [place] [address] ROUTINE VENIPUNCTURE 11/20/2012 58577 UA LONG DIP 11/20/2012 43733 CMP 11/21/2012 [id number] GFR CALC (RESULT ONLY) 11/21/2012 09259 CBC 11/21/2012 92930 XRAY ABDOMEN, 1 VIEW (KUB) 11/30/2012 46218 ROUTINE VENIPUNCTURE 01/13/2013 28814 LIPID PANEL 01/13/2013 63708 LACERATION REPAIR (SPECIFY LOCATION) 02/03/2013 15228 MAMMOGRAM, SCREENING 04/03/2013 00913 UA W/ CULTURE IF INDICATED 04/03/2013 G0008 FLU ADMINISTRATION ( MEDICARE ONLY) 01/20/2014 87948 ROUTINE VENIPUNCTURE 02/05/2014 88120 CBC 02/05/2014 [id number] GFR CALC (RESULT ONLY) 02/05/2014 88618 CMP 02/05/2014 66867 LIPID PANEL 02/05/2014 10700 TSH 02/05/2014 93798 KUB 02/23/2014 19082 MAMMOGRAM, SCREENING 04/08/2014 64335 OXIMETRY 10/18/2014 01760 ROUTINE VENIPUNCTURE 02/14/2015 08231 CBC 02/14/2015 [id number] GFR CALC (RESULT ONLY) 02/14/2015 76230 CMP 02/14/2015 93958 LIPID PANEL 02/14/2015 [id number] REPOSITION LEFT UPPER FEMUR WITH INTRAME 04/28/2016 [...] 130 mg/dL 35-160 VLDL 26 mg/dL 0-42 Complete blood count (CBC) with automated white blood cell (WBC) differential - 08/20/18 13:05 Blood leukocytes automated count (number/volume) 7.5 10*3/uL 4.3-11.0 Blood erythrocytes automated count (number/volume) 4.29 10*6/uL 4.35-5.85 Venous blood hemoglobin measurement (mass/volume) 13.2 g/dL 11.5-16.0 Blood hematocrit (volume fraction) 38 % 35-52 Automated erythrocyte mean corpuscular volume 89 [foz_us] 80-99 Automated erythrocyte mean corpuscular hemoglobin (mass per erythrocyte) 31 pg 25-34 Automated erythrocyte mean corpuscular hemoglobin concentration measurement ( mass/volume) 35 g/dL 32-36 Automated erythrocyte distribution width ratio 14.1 % 10.0-14.5 Automated blood platelet count (count/volume) 265 10*3/uL 130-400 Automated blood platelet mean volume measurement 10.7 [foz_us] 7.4-10.4 Automated blood neutrophils/100 leukocytes 65 % 42-75 Automated blood lymphocytes/100 leukocytes 23 % 12-44 Blood monocytes/100 leukocytes 12 % 0-12 Automated blood eosinophils/100 leukocytes 0 % 0-10 Automated blood basophils/100 leukocytes 0 % 0-10 Blood neutrophils automated count (number/volume) 4.8 10*3 1.8-7.8 Blood lymphocytes automated count (number/volume) 1.8 10*3 1.0-4.0 Blood monocytes automated count (number/volume) 0.9 10*3 0.0-1.0 Automated eosinophil count 0.0 10*3/uL 0.0-0.3 Automated blood basophil count (count/volume) 0.0 10*3/uL 0.0-0.1 Comprehensive metabolic panel - 08/20/18 13:05 Serum or plasma sodium measurement (moles/volume) 134 mmol/L 135-145 Serum or plasma potassium measurement (moles/volume) 4.0 mmol/L 3.6-5.0 Serum or plasma chloride measurement (moles/volume) 103 mmol/L 98-107 Carbon dioxide 21 mmol/L 21-32 Serum or plasma anion gap determination (moles/volume) 10 mmol/L 5-14 Serum or plasma urea nitrogen measurement (mass/volume) 11 mg/dL 7-18 Serum or plasma creatinine measurement (mass/volume) 0.69 mg/dL 0.60-1.30 Serum or plasma urea nitrogen/creatinine mass ratio 16 NRG Serum or plasma creatinine measurement with calculation of estimated glomerular filtration rate > NRG Serum or plasma glucose measurement (mass/volume) 102 mg/dL 70-105 Serum or plasma calcium measurement (mass/volume) 9.7 mg/dL 8.5-10.1 Serum or plasma total bilirubin measurement (mass/volume) 0.4 mg/dL 0.1-1.0 Serum or plasma alkaline phosphatase measurement (enzymatic activity/volume) 77 U/L 40-136 Serum or plasma aspartate aminotransferase measurement (enzymatic activity/ volume) 19 U/L 5-34 Serum or plasma alanine aminotransferase measurement (enzymatic activity/volume ) 8 U/L 0-55 Serum or plasma protein measurement (mass/volume) 7.5 g/dL 6.4-8.2 Serum or plasma albumin measurement (mass/volume) 4.5 g/dL 3.2-4.5 CALCIUM CORRECTED 9.3 mg/dL 8.5-10.1 Complete urinalysis with reflex to culture - 08/20/18 14:05 Urine color determination YELLOW NRG Urine clarity determination CLEAR NRG Urine pH measurement by test strip 6.5 5-9 Specific gravity of urine by test [...] NORMAL Urine leukocyte esterase detection by dipstick NEGATIVE NEGATIVE Automated urine sediment erythrocyte count by microscopy (number/high power field) NONE NRG Automated urine sediment leukocyte count by microscopy (number/high power field ) NONE NRG Bacteria detection in urine sediment by light microscopy NEGATIVE NRG Squamous epithelial cells detection in urine sediment by light microscopy RARE NRG Crystals detection in urine sediment by light microscopy NONE NRG Casts detection in urine sediment by light microscopy NONE NRG Mucus detection in urine sediment by light microscopy NEGATIVE NRG Complete urinalysis with reflex to culture NO NRG Influenza virus A and B antigen detection - 02/09/19 03:05 FLU RESULT NEGATIVE FOR INFLUENZA A AND B ANTIGENS BY IA NRG Complete urinalysis with reflex to culture - 02/11/19 14:00 Urine color determination YELLOW NRG Urine clarity determination SLIGHTLY CLOUDY NRG Urine pH measurement by test strip 7 5-9 Specific gravity of urine by test strip 1.015 1.016- 1.022 Urine protein assay by test strip, semi-quantitative 1+ NEGATIVE Urine glucose detection by automated test strip NEGATIVE NEGATIVE Erythrocytes detection in urine sediment by light microscopy NEGATIVE NEGATIVE Urine ketones detection by automated test strip 1+ NEGATIVE Urine nitrite detection by test strip NEGATIVE NEGATIVE Urine total bilirubin detection by test strip NEGATIVE NEGATIVE Urine urobilinogen measurement by automated test strip (mass/volume) NORMAL NORMAL Urine leukocyte esterase detection by dipstick NEGATIVE NEGATIVE Automated urine sediment erythrocyte count by microscopy (number/high power field) RARE NRG Automated urine sediment leukocyte count by microscopy (number/high power field ) NONE NRG Squamous epithelial cells detection in urine sediment by light microscopy RARE NRG Crystals detection in urine sediment by light microscopy NONE NRG Casts detection in urine sediment by light microscopy PRESENT NRG Mucus detection in urine sediment by light microscopy SMALL NRG Complete urinalysis with reflex to culture NO NRG Hyaline casts detection in urine sediment by light microscopy RARE NRG Complete blood count (CBC) with automated white blood cell (WBC) differential - 02/11/19 14:07 Blood leukocytes automated count (number/volume) 15.7 10*3/uL 4.3-11.0 Blood erythrocytes automated count (number/volume) 3.83 10*6/uL 4.35-5.85 Venous blood hemoglobin measurement (mass/volume) 11.2 g/dL 11.5-16.0 Blood hematocrit (volume fraction) 31 % 35-52 Automated erythrocyte mean corpuscular volume 82 [foz_us] 80-99 Automated erythrocyte mean corpuscular hemoglobin (mass per erythrocyte) 29 pg 25-34 Automated erythrocyte mean corpuscular hemoglobin concentration measurement ( mass/volume) 36 g/dL 32-36 Automated erythrocyte distribution width ratio 13.2 % 10.0-14.5 Automated blood platelet count (count/volume) 292 10*3/uL 130-400 Automated blood platelet mean volume measurement 10.0 [foz_us] 7.4-10.4 Automated blood neutrophils/100 leukocytes 85 % 42-75 Automated blood lymphocytes/100 leukocytes 5 % 12-44 Blood monocytes/100 leukocytes 11 % 0-12 Automated blood eosinophils/100 leukocytes 0 % 0-10 Automated blood basophils/100 leukocytes 0 % 0-10 Blood neutrophils automated count (number/volume) 13.3 10*3 1.8-7.8 Blood lymphocytes automated count (number/volume) 0.7 10*3 1.0-4.0 Blood monocytes automated count (number/volume) 1.7 10*3 0.0-1.0 Automated eosinophil count 0.0 10*3/uL 0.0-0.3 Automated blood basophil count (count/volume) 0.0 10*3/uL 0.0-0.1 Encounters ACCT No. Visit Date/Time Discharge Status Pt. 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 S [id number] 10/18/2014 14:56:00 10/18/2014 23:59:59 CLS Outpatient WOLF AGUIRRE APRN S [id number] 10/13/2014 17:48:00 10/13/2014 23:59:59 CLS Outpatient HUSAM ORLANDO APRN [id number] 07/29/2014 00:00:00 07/29/2014 23:59:59 CLS Outpatient MARIA LUISA TAN DDS [id number] 05/17/2014 15:12:00 05/17/2014 23:59:59 CLS Outpatient MELISSA DONIS DDS [id number] 04/08/2014 00:00:00 04/08/2014 23:59:59 CLS Outpatient WOLF AGUIRRE APRN S [id number] 02/23/2014 14:07:00 02/23/2014 23:59:59 CLS Outpatient WOLF AGUIRRE APRN S [id number] 02/23/2014 14:07:00 02/23/2014 23:59:59 CLS Outpatient YU AGUIRRE APRNA S [id number] 02/05/2014 11:39:00 02/05/2014 23:59:59 CLS Outpatient YU AGUIRRE APRNA S [id number] 01/25/2014 14:13:00 01/25/2014 23:59:59 CLS Outpatient YU AGUIRRE APRNA S [id number] 01/20/2014 13:07:00 01/20/2014 23:59:59 CLS Outpatient MORAIMA NICOLE DO [id number] 10/07/2013 15:08:00 10/07/2013 23:59:59 CLS Outpatient JUAREZ GREEN DDS [id number] 09/07/2013 09:10:00 09/07/2013 23:59:59 CLS Outpatient JUAREZ GREEN DDS [id number] 02/10/2013 17:22:00 02/10/2013 23:59:59 CLS Outpatient MORAIMA NICOLE DO [id number] 02/03/2013 17:51:00 02/03/2013 23:59:59 CLS Outpatient [id number] 01/13/2013 10:37:00 01/13/2013 23:59:59 CLS Outpatient TIMOTHYSTARLA KAN WOLF Hoff [id number] 01/03/2013 14:22:00 01/03/2013 23:59:59 CLS Outpatient JOHANNY KAN HUSAM Hall [id number] 11/21/2012 13:05:00 11/21/2012 23:59:59 CLS Outpatient LJ JERIKAELA Hoff [id number] 11/11/2012 16:00:00 11/11/2012 23:59:59 CLS Outpatient [id number] 09/24/2012 15:10:00 09/24/2012 23:59:59 CLS Outpatient [id number] 06/23/2013 11:06:00 Document Registration [id number] 04/03/2013 15:23:00 Document Registration [id number] 04/03/2013 15:23:00 Document Registration [id number] 03/31/2013 15:12:00 Document Registration [id number] 02/09/2019 02:06:00 02/09/2019 05:32:00 DIS Outpatient MEI HILL MD [facility] ER SOA [id number] 08/20/2018 12:29:00 08/20/2018 15:16:00 DIS Emergency MANUEL BOONE [employer] [facility] ER ABD PAIN [id number] 09/18/2017 11:13:00 09/18/2017 14:45:00 DIS Outpatient SHANDA SAINI MD [facility] ENDO ABDOMINAL PAIN [id number] 09/16/2017 05:57:00 09/16/2017 15:00:00 DIS Outpatient SHANDA SAINI MD [facility] PREOP ABD PAIN [id number] 07/30/2017 17:15:00 07/30/2017 20:55:00 DIS Emergency MEI HILL MD [facility] ER CONSTIPATION [id number] 03/08/2017 15:00:00 03/08/2017 19:15:00 DIS Emergency VAN GILLETTE APRN [facility] ER BOTH HIP PAIN [id number] 08/10/2016 03:53:00 08/10/2016 07:46:00 DIS Emergency MEI HILL MD [facility] ER NAUSEA,ABD PAIN,WEAK PULSE [id number] 05/02/2016 11:11:00 05/12/2016 14:15:00 DIS Inpatient MELANIE DOMINGUEZ, FRANCE Henson [facility] IRF HIP FRACTURE [id number] 02/06/2016 09:53:00 02/07/2016 15:43:00 DIS Inpatient FRED DOS SANTOS MD [facility] ICU CHEST PAIN DIARRHEA DEHYDRATION [id number] 09/05/2015 15:56:00 09/05/2015 23:59:59 CLS Outpatient WOLF AGUIRREP [facility] RAD SCREENING [id number] 07/27/2015 15:47:00 08/31/2015 00:01:00 DIS Outpatient JERMAINE JIMENES [facility] CARD BRADYCARDIA [id number] 07/25/2015 21:35:00 07/27/2015 16:04:00 DIS Inpatient FLO COLEMAN MD [facility] ICU CHEST PAIN [id number] 05/18/2015 15:00:00 05/18/2015 23:59:59 CLS Preadmit WOLF AGUIRRE [employer] [facility] RAD [id number] 11/06/2014 01:17:00 11/07/2014 15:42:00 DIS Inpatient KADY MATTHEWS MD [facility] CSD SYMPTOMATIC BRADYCARDIA,N /V,ABD PAIN,COLITIS [id number] 05/04/2014 11:32:00 05/04/2014 23:59:59 CLS Outpatient WOLF AGUIRRE [employer] [facility] RAD SCREENING [id number] 03/01/2014 08:35:00 03/01/2014 11:15:00 DIS Outpatient BOB ARZATE MD [facility] SDC CONSTIPATION [id number] 02/25/2014 07:26:00 02/25/2014 23:59:59 CLS Outpatient BOB ARZATE MD [facility] PREOP CONSTIPATION [id number] 04/09/2013 11:14:00 04/09/2013 23:59:59 CLS Outpatient DEEPTI MATHUR APRN [facility] RAD SCREENING [id number] 02/11/2019 14:13:00 Document Registration [id number] 04/27/2016 18:50:00 ACT Inpatient CASSIE DOMINGUEZ, KADY Raymundo [facility] 4TH [employer] HIP FX [id number] 12/13/2017 09:11:00 Document Registration [id number] 09/30/2016 07:05:00 Document Registration [id number] 12/13/2017 09:11:00 12/30/2017 09:17:00 DIS Inpatient [facility] [id number] 03/08/2017 23:44:00 03/27/2017 12:08:00 DIS Inpatient [facility] [id number] 10/17/2016 15:00:00 11/05/2016 13:00:00 DIS Inpatient [facility] [id number] 10/19/2016 15:58:44 Document Registration [id number] 12/18/2018 09:40:00 12/18/2018 23:59:59 CLS Outpatient WOLF AGUIRRE APRN [facility] [id number] 08/01/2016 18:05:00 Document Registration [id number] 09/06/2015 07:36:48 ACT Document Registration [id number] 10/02/2016 05:05:00 Document Registration [id number] 09/13/2016 18:05:00 Document Registration
[2019-02-11] MEDS ORDERED: NS 100 ML (IVPB) BAG IV ONE (15:00)
[2019-02-11] MEDS ORDERED: HOLD METFORMIN - RECEIVED CONTRAST 20 ML VIAL IV SCH (15:00)
[2019-02-11] MEDS ORDERED: IOHEXOL 350 MG/ML 100 ML (OMNIPAQUE 350) VIAL IV ONE (15:00)
--- NOTE | 2019-02-11 15:42 | Diagnostic Imaging Report ---
PROCEDURE: CT chest, abdomen and pelvis with contrast. TECHNIQUE: Multiple contiguous axial images were obtained through the chest, abdomen and pelvis after the administration of intravenous contrast. INDICATION: Trauma and left hip pain. FINDINGS: CT CHEST: No mediastinal hematoma or great vessel injury is seen. There is a small right and moderate left pleural effusion noted. No pneumothorax is seen. There is some mild infiltrate or atelectasis in both lung bases. Bony structures are unremarkable. IMPRESSION: Small right and moderate left pleural effusion with associated bibasilar infiltrates or atelectasis. No other significant abnormality is seen. CT ABDOMEN/PELVIS: No focal liver or splenic laceration is identified. Gallbladder is unremarkable. The pancreas is unremarkable. No adrenal hematoma is seen. No definite renal injury or perinephric fluid collection is identified. Aorta is non-aneurysmal. Bowel loops appear to be nonobstructed. There is diverticulosis of the sigmoid colon. There is moderate stool throughout the transverse colon. Small bowel loops are normal caliber. There is no evidence of free fluid or hemoperitoneum. Postop changes to bilateral hips are noted. Hardware produces moderate artifact. No acute fracture is seen. There appears to be a chronic compression fracture deformity involving the L5 vertebral body. IMPRESSION: 1. No evidence of abdominal or pelvic visceral injury. 2. Moderate stool in the transverse colon consistent with constipation. 3. No acute bony abnormality is detected. Dictated by: Dictated on workstation # [id number]
[2019-02-11] MEDS ORDERED: PIPERACILLIN/TAZOBACTAM (BULK) 4.5 GM in NS (IVPB) 100 ML IV ONE (16:00)
[2019-02-11] MEDS ORDERED: FUROSEMIDE 40 MG/4 ML INJ (LASIX) IVP ONE (17:00)
--- NOTE | 2019-02-11 17:10 | Diagnostic Imaging Report ---
PROCEDURE: CT head and CT cervical spine without contrast. TECHNIQUE: Multiple contiguous axial images were obtained through the brain and cervical spine without the use of intravenous contrast. Sagittal and coronal reformations through the cervical spine were then performed. INDICATION: Fall. Head injury. Left eye swelling. COMPARISON: CT head without contrast 03/08/2017. FINDINGS: CT head: Moderate generalized cerebral and cerebellar parenchymal volume loss. No intracranial hemorrhage, mass effect, hydrocephalus or extra-axial fluid collections. No CT evidence for territorial infarction. Soft tissue hematoma overlying the superolateral left orbit. No underlying fractures. Mild mucosal thickening in the right maxillary sinus. Mastoids are clear. CT cervical spine: Normal alignment. Vertebral body heights are preserved. No fractures. Advanced diffuse degenerative endplate changes are greatest at C5-C7. There are also advanced degenerative changes at the atlantoaxial articulation. No high-grade spinal canal narrowing on this non-intrathecal contrast exam. Advanced atherosclerotic calcifications including the carotid bifurcations. Partially visualized left pleural effusion. Scarring in the lung apices. IMPRESSION: 1. Soft tissue hematoma overlying the superior lateral left orbit. No underlying fractures. 2. No acute intracranial or cervical spine CT findings. 3. Small left pleural effusion is partially visualized. 4. 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 Dictated by: Dictated on workstation # [id number]
[2019-02-11 18:00] VITALS: BP 141/64
--- NOTE | 2019-02-11 18:06 | NUR ---
BAYLEE PEPE admitted to room 425-1, with an admitting diagnosis of PNA, on 02/11/19 from ED via stretcher , accompanied by staff. BAYLEE PEPE introduced to surroundings, call light, bed controls, phone, TV, temperature control, lights, meal times, smoking policy, visitor policy, side rail policy, bathrooms and showers. Patient Rights given to patient in the handbook. BAYLEE PEPE verbalizes understanding that [facility] is not responsible for the loss or damage to any personal effects or valuables that are kept in the patients posession during their hospitalization. The following Patient Care Plans and discharge were discussed with the patient. BAYLEE PEPE verbalizes understanding of Interdisciplinary Patient Education.
--- OUTSIDE RECORDS SUMMARY | 2019-02-11 18:27 | XMS REPORT | Continuity of Care Document ---
Author Author [facility] Address Unknown Phone Unavailable Allergies Active Description Code Type Severity Reaction Onset Reported/Identified Relationship to Patient Clinical Status Yes CLINDAMYCIN PHOSPHATE CLINDAMYCIN PHOSPHAT SEVERE Yes MORPHINE MORPHINE SEVERE Yes CLINDAMYCIN PHOSPHATE SEVERE UNKNOWN Yes MORPHINE SEVERE UNKNOWN Yes NKANo Known Allergies NKA Miscellaneous Allergy Unknown N/A 10/07/2006 Yes clindamycin [id number] Drug Allergy Unknown N/A 02/11/2019 Yes morphine [id number] Drug Allergy Unknown N/A 02/11/2019 Medications Medication Packaging Start Date Stop Date [...] JL 10/22/2016 11/21/2016 PRN Q48H Fluarix Quad 2544-2278 (PF) (Influenza [id number] 36mos up(PF)) IM syringe ML 10/22/2016 10/22/2016 [...] LORAZEPAM TAB 1 MG (ATIVAN) MG 09/201704/10/2017 BID&0800,2000 LORAZEPAM 1CC VIAL INJ 2 MG/CC (ATIVAN [...] LORAZEPAM TAB 1 MG (ATIVAN) MG 03/29/2017 BID&0600,2000 LORAZEPAM 1CC VIAL INJ 2 MG/CC (ATIVAN VIAL) MG 03/20/2017 03/29/2017 BID&0600,2000 LORAZEPAM TAB 1 MG (ATIVAN) MG 03/29/2017 BID&0800,2000 LORAZEPAM 1CC VIAL INJ 2 MG/CC (ATIVAN VIAL) MG 03/20/2017 03/29/2017 BID&0800,2000 CITALOPRAM TAB 10 MG (CELEXA) MG 04/19/2017 [...] JUAREZ GREEN DDS 462 Pharyngitis Acute 09/01/2008 NORMA MARTINES, JUAREZ Pierre 787.91 Diarrhea 09/01/2008 JUAREZ GREEN DDS 462 Pharyngitis Acute 09/01/2008 NORMA MARTINES, JUAREZ Pierre 787.91 Diarrhea 09/01/2008 MORAIMA NICOLE DO 462 Pharyngitis Acute 09/01/2008 MORAIMA NICOLE DO 787.91 Diarrhea 09/01/2008 WOLF AGUIRRE APRN 462 Pharyngitis Acute 09/01/2008 TIMOTHY ADMIRALTY LAWYER, WOLF S 787.91 Diarrhea 09/01/2008 TIMOTHY ADMIRALTY LAWYER, WOLF S 462 Pharyngitis Acute 09/01/2008 TIMOTHY ADMIRALTY LAWYER, WOLF S 787.91 Diarrhea 09/01/2008 TIMOTHY ADMIRALTY LAWYER, WOLF S 462 Pharyngitis Acute 09/01/2008 TIMOTHY ADMIRALTY LAWYER, WOLF S 787.91 Diarrhea 09/01/2008 TIMOTHY ADMIRALTY LAWYER, WOFL S 462 Pharyngitis Acute 09/01/2008 TIMOTHY ADMIRALTY LAWYER, WOLF S 787.91 Diarrhea 09/01/2008 TIMOTHY ADMIRALTY LAWYER, WOLF S 462 Pharyngitis Acute 09/01/2008 TIMOTHY ADMIRALTY LAWYER, WOLF S 787.91 Diarrhea 09/01/2008 WHITE DDS, MELISSA J 462 Pharyngitis Acute 09/01/2008 WHITE DDS, MELISSA J 787.91 Diarrhea 09/01/2008 TAN DDS, MARIA LUISA 462 Pharyngitis Acute 09/01/2008 TAN DDS, MARIA LUISA 787.91 Diarrhea 09/01/2008 JOHANNY ADMIRALTY LAWYER, HUSAM T 462 Pharyngitis Acute 09/01/2008 JOHANNY ADMIRALTY LAWYER, HUSAM T 787.91 Diarrhea 09/01/2008 TIMOTHY ADMIRALTY LAWYER, WOLF S 462 Pharyngitis Acute 09/01/2008 TIMOTHY ADMIRALTY LAWYER, WOLF S 787.91 Diarrhea 09/01/2008 TIMOTHY ADMIRALTY LAWYER, WOLF S 462 Pharyngitis Acute 09/01/2008 TIMOTHY ADMIRALTY LAWYER, WOLF S 787.91 Diarrhea 09/01/2008 CASSIE DOMINGUEZ, KADY Raymundo 462 Pharyngitis Acute 09/01/2008 CASSIE DOMINGUEZ, KADY Raymundo 787.91 Diarrhea 09/01/2008 TIMOTHY ADMIRALTY LAWYER, WOLF S 462 Pharyngitis Acute 09/01/2008 TIMOTHY ADMIRALTY LAWYER, WOLF S 787.91 Diarrhea 09/01/2008 TIMOTHY ADMIRALTY LAWYER, WOLF S 462 Pharyngitis Acute 09/01/2008 TIMOTHY ADMIRALTY LAWYER, WOLF S 787.91 Diarrhea 09/01/2008 TAN DDS, [...] 02/11/2009 695.3 Rosacea 02/11/2009 NICOLE DO, MORAIMA Colmenares 695.3 Rosacea 02/11/2009 695.3 Rosacea 02/11/2009 695.3 Rosacea 02/11/2009 695.3 Rosacea 02/11/2009 695.3 Rosacea 02/11/2009 NORMA DDS, JUAREZ Pierre 695.3 Rosacea 02/11/2009 NORMA DDS, JUAREZ Pierre 695.3 Rosacea 02/11/2009 NICOLE DO, MORAIMA Colmenares 695.3 Rosacea 02/11/2009 TIMOTHYSTARLA GAINESN, WOLF S 695.3 Rosacea 02/11/2009 TIMOTHY ADMIRALTY LAWYER, WOLF S 695.3 Rosacea 02/11/2009 TIMOTHY ADMIRALTY LAWYER, WOLF S 695.3 Rosacea 02/11/2009 TIMOTHY ADMIRALTY LAWYER, WOLF S 695.3 Rosacea 02/11/2009 TIMOTHY ADMIRALTY LAWYER, WOLF S 695.3 Rosacea 02/11/2009 GAGANDEEP DDS, MELISSA Raymundo 695.3 Rosacea 02/11/2009 TAN DDS, MARIA LUISA 695.3 Rosacea 02/11/2009 HUSAM ORLANDO APRN 695.3 Rosacea 02/11/2009 TIMOTHY ADMIRALTY LAWYER, WOLF S 695.3 Rosacea 02/11/2009 TIMOTHY GAINESN, WOLF S 695.3 Rosacea 02/11/2009 CASSIE DOMINGUEZ, KADY Raymundo 695.3 Rosacea 02/11/2009 TIMOTHY KAN, WOLF S 695.3 Rosacea 02/11/2009 TIMOTHY ADMIRALTY LAWYER, WOLF S 695.3 Rosacea 02/11/2009 BRITNEY DDS, [...] JUAREZ Pierre 008.62 Gastroenteritis Viral Adenovirus 03/31/2009 NORMA DDS, JUAREZ Pierre 008.62 Gastroenteritis Viral Adenovirus 03/31/2009 MORAIMA NICOLE DO K 008.62 Gastroenteritis Viral Adenovirus 03/31/2009 TIMOTHYSTARLA GAINESN, WOLF S 008.62 Gastroenteritis Viral Adenovirus 03/31/2009 TIMOTHY KAN, WOLF S 008.62 Gastroenteritis Viral Adenovirus 03/31/2009 TIMOTHYSTARLA GAINESN, WOLF S 008.62 Gastroenteritis Viral Adenovirus 03/31/2009 TIMOTHYSTARLA GAINESN, WOLF S 008.62 Gastroenteritis Viral Adenovirus 03/31/2009 TIMOTHYSTARLA GAINESN, WOLF S 008.62 Gastroenteritis Viral Adenovirus 03/31/2009 GAGANDEEP DDS, MELISSA Raymundo 008.62 Gastroenteritis Viral Adenovirus 03/31/2009 BRITNEY DDS, MARIA LUISA 008.62 Gastroenteritis Viral Adenovirus 03/31/2009 HUSAM ORLANDO APRN 008.62 Gastroenteritis Viral Adenovirus 03/31/2009 TIMOTHYSTARLA KAN, WOLF S 008.62 Gastroenteritis Viral Adenovirus 03/31/2009 TIMOTHYSTARLA GAINESN, WOLF S 008.62 Gastroenteritis Viral Adenovirus 03/31/2009 CASSIE DOMINGUEZ, KADY Raymundo 008.62 Gastroenteritis Viral Adenovirus 03/31/2009 TIMOTHYSTARLA GAINESN, WOLF S 008.62 Gastroenteritis Viral Adenovirus 03/31/2009 TIMOTHY ADMIRALTY LAWYER, WOLF S 008.62 Gastroenteritis Viral Adenovirus 03/31/2009 BRITNEY WILCOXS, MARIA LUISA 008.62 Gastroenteritis Viral Adenovirus 03/31/2009 MAX WILCOXS, KATHYA Chopra 008.62 Gastroenteritis Viral Adenovirus 06/29/2009 599.0 Urinary Tract Infection 06/29/2009 599.0 Urinary Tract Infection 06/29/2009 LJ DDS, KAELA F 599.0 Urinary Tract Infection 06/29/2009 HUSAM ORLANDO APRN 599.0 Urinary Tract Infection 06/29/2009 TIMOTHY KAN, WOLF S 599.0 Urinary Tract Infection 06/29/2009 599.0 Urinary Tract Infection 06/29/2009 NICOLE DO, MORAIMA K 599.0 Urinary Tract Infection 06/29/2009 599.0 Urinary Tract Infection 06/29/2009 599.0 Urinary Tract Infection 06/29/2009 599.0 Urinary Tract Infection 06/29/2009 599.0 Urinary Tract Infection 06/29/2009 NORMA WILCOXS, JUAREZ Pierre 599.0 Urinary Tract Infection 06/29/2009 NORMA WILCOXS, JUAREZ M 599.0 Urinary Tract Infection 06/29/2009 NICOLE DO, MORAIMA K 599.0 Urinary Tract Infection 06/29/2009 TIMOTHY GAINESN, WOLF S 599.0 Urinary Tract Infection 06/29/2009 TIMOTHY GAINESN, WOLF S 599.0 Urinary Tract Infection 06/29/2009 TIMOTHY ADMIRALTY LAWYER, WOLF S 599.0 Urinary Tract Infection 06/29/2009 TIMOTHY GAINESN, WOLF S 599.0 Urinary Tract Infection 06/29/2009 TIMOTHY ADMIRALTY LAWYER, WOLF S 599.0 Urinary Tract Infection 06/29/2009 GAGANDEEP WILCOXS, MELISSA Raymundo 599.0 Urinary Tract Infection 06/29/2009 BRITNEY WILCOXSMARIA LUISA 599.0 Urinary Tract Infection 06/29/2009 HUSAM ORLANDO APRN 599.0 Urinary Tract Infection 06/29/2009 TIMOTHY ADMIRALTY LAWYER, WOLF S 599.0 Urinary Tract Infection 06/29/2009 TIMOTHY ADMIRALTY LAWYER, WOLF S 599.0 Urinary Tract Infection 06/29/2009 CASSIE DOMINGUEZ, KADY Raymundo 599.0 Urinary Tract Infection 06/29/2009 TIMOTHY ADMIRALTY LAWYER, WOLF S 599.0 Urinary Tract Infection 06/29/2009 TIMOTHY ADMIRALTY LAWYER, WOLF S 599.0 Urinary Tract Infection 06/29/2009 BRITNEY WILCOXSMARIA LUISA 599.0 Urinary Tract Infection 06/29/2009 MAX WILCOXS, KATHYA Chopra 599.0 Urinary Tract Infection 08/15/2009 272.4 HYPERLIPIDEMIA UNSPECIFIED 08/15/2009 272.4 HYPERLIPIDEMIA UNSPECIFIED 08/15/2009 LJ WILCOXS, KAELA Rdz 272.4 HYPERLIPIDEMIA UNSPECIFIED 08/15/2009 HUSAM ORLANDO APRN [...] NICOLE DO K 272.4 HYPERLIPIDEMIA UNSPECIFIED 08/15/2009 TIMOTHY ADMIRALTY LAWYER, WOLF S 272.4 HYPERLIPIDEMIA UNSPECIFIED 08/15/2009 TIMOTHY ADMIRALTY LAWYER, WOLF S 272.4 HYPERLIPIDEMIA UNSPECIFIED 08/15/2009 TIMOTHY ADMIRALTY LAWYER, WOLF S 272.4 HYPERLIPIDEMIA UNSPECIFIED 08/15/2009 TIMOTHY ADMIRALTY LAWYER, WOLF S 272.4 HYPERLIPIDEMIA UNSPECIFIED 08/15/2009 TIMOTHY ADMIRALTY LAWYER, WOLF S 272.4 HYPERLIPIDEMIA UNSPECIFIED 08/15/2009 MELISSA DONIS DDS 272.4 HYPERLIPIDEMIA UNSPECIFIED 08/15/2009 TAN DDS, MARIA LUISA 272.4 HYPERLIPIDEMIA UNSPECIFIED 08/15/2009 HUSAM ORLANDO APRN 272.4 HYPERLIPIDEMIA UNSPECIFIED 08/15/2009 TIMOTHY KAN, WOLF S 272.4 HYPERLIPIDEMIA UNSPECIFIED 08/15/2009 TIMOTHY KAN, WOLF S 272.4 HYPERLIPIDEMIA UNSPECIFIED 08/15/2009 CASSIE DOMINGUEZ, KADY Raymundo 272.4 HYPERLIPIDEMIA UNSPECIFIED 08/15/2009 TIMOTHY ADMIRALTY LAWYER, WOLF S 272.4 HYPERLIPIDEMIA UNSPECIFIED 08/15/2009 TIMOTHY KAN, WOLF S 272.4 HYPERLIPIDEMIA UNSPECIFIED 08/15/2009 BRITNEY DDS, MARIA LUISA 272.4 HYPERLIPIDEMIA UNSPECIFIED 08/15/2009 MAX DDS, KATHYA Chopra 272.4 HYPERLIPIDEMIA UNSPECIFIED 08/26/2009 558.9 Gastroenteritis Noninfectious 08/26/2009 558.9 Gastroenteritis Noninfectious 08/26/2009 LJ DDS, KAELA F 558.9 Gastroenteritis Noninfectious 08/26/2009 HUSAM ORLANDO APRN 558.9 Gastroenteritis Noninfectious 08/26/2009 HAFSA AGUIRRE APRNNDA S 558.9 Gastroenteritis Noninfectious 08/26/2009 558.9 Gastroenteritis Noninfectious 08/26/2009 MORAIMA NICOLE DO K 558.9 Gastroenteritis Noninfectious 08/26/2009 558.9 Gastroenteritis Noninfectious 08/26/2009 558.9 Gastroenteritis Noninfectious 08/26/2009 558.9 Gastroenteritis Noninfectious 08/26/2009 558.9 Gastroenteritis Noninfectious 08/26/2009 JUAREZ GREEN DDS 558.9 Gastroenteritis Noninfectious 08/26/2009 JUAREZ GREEN DDS 558.9 Gastroenteritis Noninfectious 08/26/2009 MORAIMA NICOLE DO K 558.9 Gastroenteritis Noninfectious 08/26/2009 TIMOTHY KAN, WOLF S 558.9 Gastroenteritis Noninfectious 08/26/2009 TIMOTHY KAN, WOLF S 558.9 Gastroenteritis Noninfectious 08/26/2009 TIMOTHY KAN, WOLF S 558.9 Gastroenteritis Noninfectious 08/26/2009 TIMOTHY KAN WOLF S 558.9 Gastroenteritis Noninfectious 08/26/2009 TIMOTHY ADMIRALTY LAWYER, WOLF S 558.9 Gastroenteritis Noninfectious 08/26/2009 GAGANDEEP DDS, MELISSA J 558.9 Gastroenteritis Noninfectious 08/26/2009 TAN DDS, MARIA LUISA 558.9 Gastroenteritis Noninfectious 08/26/2009 HUSAM ORLANDO APRN 558.9 Gastroenteritis Noninfectious 08/26/2009 HAFSA AGUIRRE APRNNDA S 558.9 Gastroenteritis Noninfectious 08/26/2009 HAFSA AGUIRRE APRNNDA S 558.9 Gastroenteritis Noninfectious 08/26/2009 CASSIE DOMINGUEZ, KADY Raymundo 558.9 Gastroenteritis Noninfectious 08/26/2009 TIMOTHY KAN, WOLF S 558.9 Gastroenteritis Noninfectious 08/26/2009 HAFSA AGUIRRE APRNNDA S 558.9 Gastroenteritis Noninfectious 08/26/2009 BRITNEY DDS, [...] ORLANDO APRN V58.69 Medication High Risk 09/07/2009 HAFSA AGUIRRE APRNNDA S 300.00 Anxiety State, Unspecified 09/07/2009 HAFSA AGUIRRE APRNNDA S V58.69 Medication High Risk 09/07/2009 300.00 Anxiety State , Unspecified 09/07/2009 V58.69 Medication High Risk 09/07/2009 NICOLE DOMORAIMA K 300.00 Anxiety State, Unspecified 09/07/2009 NICOLE DOLILLIANA K V58.69 Medication High Risk 09/07/2009 300.00 Anxiety State , Unspecified 09/07/2009 V58.69 Medication High Risk 09/07/2009 300.00 Anxiety State , Unspecified 09/07/2009 V58.69 Medication High Risk 09/07/2009 300.00 Anxiety State , Unspecified 09/07/2009 V58.69 Medication High Risk 09/07/2009 300.00 Anxiety State , Unspecified 09/07/2009 V58.69 Medication High Risk 09/07/2009 NORMA DDS, JUAERZ Pierre 300.00 Anxiety State, Unspecified 09/07/2009 NORMA DDS, JUAREZ Pierre V58.69 Medication High Risk 09/07/2009 NORMA DDS, JUAREZ Pierre 300.00 Anxiety State, Unspecified 09/07/2009 NORMA DDS, JUAREZ Pierre V58.69 Medication High Risk 09/07/2009 NICOLE DO, MORAIMA K 300.00 Anxiety State, Unspecified 09/07/2009 NICOLE DO, MORAIMA K V58.69 Medication High Risk 09/07/2009 TIMOTHY ADMIRALTY LAWYER, WOLF S 300.00 Anxiety State, Unspecified 09/07/2009 TIMOTHY ADMIRALTY LAWYER, WOLF S V58.69 Medication High Risk 09/07/2009 TIMOTHY ADMIRALTY LAWYER, WOLF S 300.00 Anxiety State, Unspecified 09/07/2009 TIMOTHY ADMIRALTY LAWYER, WOLF S V58.69 Medication High Risk 09/07/2009 TIMOTYH ADMIRALTY LAWYER, WOLF S 300.00 Anxiety State, Unspecified 09/07/2009 TIMOTHY ADMIRALTY LAWYER, WOLF S V58.69 Medication High Risk 09/07/2009 TIMOTHY ADMIRALTY LAWYER, WOLF S 300.00 Anxiety State, Unspecified 09/07/2009 TIMOTHY ADMIRALTY LAWYER, WOLF S V58.69 Medication High Risk 09/07/2009 TIMOTHY ADMIRALTY LAWYER, WOLF S 300.00 Anxiety State, Unspecified 09/07/2009 TIMOTHY ADMIRALTY LAWYER, WOLF S V58.69 Medication High Risk 09/07/2009 WHITE DDS, MELISSA J 300.00 Anxiety State, Unspecified 09/07/2009 WHITE DDS, MELISSA J V58.69 Medication High Risk 09/07/2009 TAN DDS, MARIA LUISA 300.00 Anxiety State, Unspecified 09/07/2009 TAN DDS, MARIA LUISA V58.69 Medication High Risk 09/07/2009 HUSAM ORLANDO APRN 300.00 Anxiety State, Unspecified 09/07/2009 HUSAM ORLANDO APRN V58.69 Medication High Risk 09/07/2009 TIMOTHY ADMIRALTY LAWYER, WOLF S 300.00 Anxiety State, Unspecified 09/07/2009 TIMOTHY ADMIRALTY LAWYER, WOLF S V58.69 Medication High Risk 09/07/2009 TIMOTHY ADMIRALTY LAWYER, WOLF S 300.00 Anxiety State, Unspecified 09/07/2009 TIMOTHY ADMIRALTY LAWYER, WOLF S V58.69 Medication High Risk 09/07/2009 CASSIE DOMINGUEZ, KADY Raymundo 300.00 Anxiety State, Unspecified 09/07/2009 CASSIE DOMINGUEZ, KADY Raymundo V58.69 Medication High Risk 09/07/2009 TIMOTHY ADMIRALTY LAWYER, WOLF S 300.00 Anxiety State, Unspecified 09/07/2009 TIMOTHY ADMIRALTY LAWYER, WOLF S V58.69 Medication High Risk 09/07/2009 TIMOTHY ADMIRALTY LAWYER, WOLF S 300.00 Anxiety State, Unspecified 09/07/2009 TIMOTHY ADMIRALTY LAWYER, WOLF S V58.69 Medication High Risk 09/07/2009 TAN DDS, MARIA LUISA 300.00 Anxiety State, Unspecified 09/07/2009 TAN DDS, MARIA LUISA V58.69 Medication High Risk 09/07/2009 MAX DDS, KATHYA D 300.00 Anxiety State, Unspecified 09/07/2009 MAX DDS, KATHYA D V58.69 Medication High Risk 11/10/2009 719.41 Pain In Joint , Shoulder Region 11/10/2009 719.41 Pain In Joint , Shoulder Region 11/10/2009 LJ WILCOXS, KAELA Rdz 719.41 Pain In Joint, Shoulder Region 11/10/2009 HUSAM ORLANDO APRN 719.41 Pain In Joint, Shoulder Region 11/10/2009 YU AGUIRRE APRNA S 719.41 Pain In Joint, Shoulder Region 11/10/2009 719.41 Pain In Joint , Shoulder Region 11/10/2009 MORAIMA NICOLE DO 719.41 Pain In Joint, Shoulder Region 11/10/2009 719.41 Pain In Joint , Shoulder Region 11/10/2009 719.41 Pain In Joint , Shoulder Region 11/10/2009 719.41 Pain In Joint , Shoulder Region 11/10/2009 719.41 Pain In Joint , Shoulder Region 11/10/2009 JUAREZ GREEN DDS 719.41 Pain In Joint, Shoulder Region 11/10/2009 JUAREZ GREEN DDS 719.41 Pain In Joint, Shoulder Region 11/10/2009 BONNIE LOCKETT MORAIMA Dedra 719.41 Pain In Joint, Shoulder Region 11/10/2009 TIMOTHY ADMIRALTY LAWYER, WOLF S 719.41 Pain In Joint, Shoulder Region 11/10/2009 TIMOTHY ADMIRALTY LAWYER, WOLF S 719.41 Pain In Joint, Shoulder Region 11/10/2009 TIMOTHY ADMIRALTY LAWYER, WOLF S 719.41 Pain In Joint, Shoulder Region 11/10/2009 TIMOTHY ADMIRALTY LAWYER, WOLF S 719.41 Pain In Joint, Shoulder Region 11/10/2009 TIMOTHY ADMIRALTY LAWYER, WOLF S 719.41 Pain In Joint, Shoulder Region 11/10/2009 MELISSA DONIS DDS 719.41 Pain In Joint, Shoulder Region 11/10/2009 MARIA LUISA TAN DDS 719.41 Pain In Joint, Shoulder Region 11/10/2009 HUSAM ORLANDO APRN 719.41 Pain In Joint, Shoulder Region 11/10/2009 TIMOTHY ADMIRALTY LAWYER, WOLF S 719.41 Pain In Joint, Shoulder Region 11/10/2009 TIMOTHY ADMIRALTY LAWYER, WOLF S 719.41 Pain In Joint, Shoulder Region 11/10/2009 CASSIE DOMINGUEZ, KADY Raymundo 719.41 Pain In Joint, Shoulder Region 11/10/2009 TIMOTHY ADMIRALTY LAWYER, WOLF S 719.41 Pain In Joint, Shoulder Region 11/10/2009 TIMOTHY ADMIRALTY LAWYER, WOLF S 719.41 Pain In Joint, Shoulder Region 11/10/2009 MARIA LUISA TAN DDS 719.41 Pain In Joint, Shoulder Region 11/10/2009 KATHYA SANTANA DDS 719.41 Pain In Joint, Shoulder Region 12/29/2009 311 DEPRESSIVE DISORDER, NOT ELSEWHERE CLASSIFIED 12/29/2009 564.1 Irritable Bowel Syndrome 12/29/2009 311 DEPRESSIVE DISORDER, NOT ELSEWHERE CLASSIFIED 12/29/2009 564.1 Irritable Bowel Syndrome 12/29/2009 LJ DDS, KAELA F 311 DEPRESSIVE DISORDER, NOT ELSEWHERE CLASSIFIED 12/29/2009 LJ DDS, KAELA F 564.1 Irritable Bowel Syndrome 12/29/2009 HUSAM ORLANDO APRN T 311 DEPRESSIVE DISORDER, NOT ELSEWHERE CLASSIFIED 12/29/2009 JOHANNY ADMIRALTY LAWYER, HUSAM T 564.1 Irritable Bowel Syndrome 12/29/2009 TIMOTHY ADMIRALTY LAWYER, WOLF S 311 DEPRESSIVE DISORDER, NOT ELSEWHERE CLASSIFIED 12/29/2009 TIMOTHY ADMIRALTY LAWYER, WOLF S 564.1 Irritable Bowel Syndrome 12/29/2009 [...] Irritable Bowel Syndrome 12/29/2009 NORMA DDS, JUAREZ Pierre 311 DEPRESSIVE DISORDER, NOT ELSEWHERE CLASSIFIED 12/29/2009 NORMA DDSJUAREZ 564.1 Irritable Bowel Syndrome 12/29/2009 NORMA DDS, JUAREZ Pierre 311 DEPRESSIVE DISORDER, NOT ELSEWHERE CLASSIFIED 12/29/2009 NORMA DDS, JUAREZ Pierre 564.1 Irritable Bowel Syndrome 12/29/2009 BONNIE LOCKETT MORAIMA K 311 DEPRESSIVE DISORDER, NOT ELSEWHERE CLASSIFIED 12/29/2009 NICOLE DO MORAIMA K 564.1 Irritable Bowel Syndrome 12/29/2009 TIMOTHY ADMIRALTY LAWYER, WOLF S 311 DEPRESSIVE DISORDER, NOT ELSEWHERE CLASSIFIED 12/29/2009 TIMOTHY ADMIRALTY LAWYER, WOLF S 564.1 Irritable Bowel Syndrome 12/29/2009 TIMOTHY ADMIRALTY LAWYER, WOLF S 311 DEPRESSIVE DISORDER, NOT ELSEWHERE CLASSIFIED 12/29/2009 TIMOTHY ADMIRALTY LAWYER, WOLF S 564.1 Irritable Bowel Syndrome 12/29/2009 TIMOTHY ADMIRALTY LAWYER, WOLF S 311 DEPRESSIVE DISORDER, NOT ELSEWHERE CLASSIFIED 12/29/2009 TIMOTHY ADMIRALTY LAWYER, WOLF S 564.1 Irritable Bowel Syndrome 12/29/2009 TIMOTHY ADMIRALTY LAWYER, WOLF S 311 DEPRESSIVE DISORDER, NOT ELSEWHERE CLASSIFIED 12/29/2009 TIMOTHY ADMIRALTY LAWYER, WOLF S 564.1 Irritable Bowel Syndrome 12/29/2009 TIMOTHY ADMIRALTY LAWYER, WOLF S 311 DEPRESSIVE DISORDER, NOT ELSEWHERE CLASSIFIED 12/29/2009 TIMOTHY ADMIRALTY LAWYER, WOLF S 564.1 Irritable Bowel Syndrome 12/29/2009 WHITE DDS, MELISSA J 311 DEPRESSIVE DISORDER, NOT ELSEWHERE CLASSIFIED 12/29/2009 WHITE DDS, MELISSA J 564.1 Irritable Bowel Syndrome 12/29/2009 TAN DDS, MARIA LUISA 311 DEPRESSIVE DISORDER, NOT ELSEWHERE CLASSIFIED 12/29/2009 TAN DDS, MARIA LUISA 564.1 Irritable Bowel Syndrome 12/29/2009 HUSAM ORLANDO APRN 311 DEPRESSIVE DISORDER, NOT ELSEWHERE CLASSIFIED 12/29/2009 JOHANNY AKN HUSAM T 564.1 Irritable Bowel Syndrome 12/29/2009 TIMOTHY ADMIRALTY LAWYER, WOLF S 311 DEPRESSIVE DISORDER, NOT ELSEWHERE CLASSIFIED 12/29/2009 TIMOTHY GAINESN, WOLF S 564.1 Irritable Bowel Syndrome 12/29/2009 TIMOTHY ADMIRALTY LAWYER, WOLF S 311 DEPRESSIVE DISORDER, NOT ELSEWHERE CLASSIFIED 12/29/2009 TIMOTHY ADMIRALTY LAWYER, WOLF S 564.1 Irritable Bowel Syndrome 12/29/2009 KADY MATTHEWS MD 311 DEPRESSIVE DISORDER, NOT ELSEWHERE CLASSIFIED 12/29/2009 CASSIE DOMINGUEZ, KADY Raymundo 564.1 Irritable Bowel Syndrome 12/29/2009 TIMOTHY ADMIRALTY LAWYER, WOLF S 311 DEPRESSIVE DISORDER, NOT ELSEWHERE CLASSIFIED 12/29/2009 TIMTOHY ADMIRALTY LAWYER, WOLF S 564.1 Irritable Bowel Syndrome 12/29/2009 TIMOTHY ADMIRALTY LAWYER, WOLF S 311 DEPRESSIVE DISORDER, NOT ELSEWHERE CLASSIFIED 12/29/2009 TIMOTHY ADMIRALTY LAWYER, WOLF S 564.1 Irritable Bowel Syndrome 12/29/2009 [...] DDS, JUAREZ Pierre 787.02 Nausea Alone 01/27/2010 MORAIMA NICOLE DO 427.89 Other Specified Cardiac Dysrhythmias 01/27/2010 BONNIE LOCKETTMORAIMA Dedra 787.02 Nausea Alone 01/27/2010 TIMOTHY ADMIRALTY LAWYER, WOLF S 427.89 Other Specified Cardiac Dysrhythmias 01/27/2010 TIMOTHY ADMIRALTY LAWYER, WOLF S 787.02 Nausea Alone 01/27/2010 TIMOTHY ADMIRALTY LAWYER, WOLF S 427.89 Other Specified Cardiac Dysrhythmias 01/27/2010 TIMOTHY ADMIRALTY LAWYER, WOLF S 787.02 Nausea Alone 01/27/2010 TIMOTHY ADMIRALTY LAWYER, WOLF S 427.89 Other Specified Cardiac Dysrhythmias 01/27/2010 TIMOTHY ADMIRALTY LAWYER, WOLF S 787.02 Nausea Alone 01/27/2010 TIMOTHY ADMIRALTY LAWYER, WOLF S 427.89 Other Specified Cardiac Dysrhythmias 01/27/2010 TIMOTHY ADMIRALTY LAWYER, WOLF S 787.02 Nausea Alone 01/27/2010 TIMOTHY ADMIRALTY LAWYER, WOLF S 427.89 Other Specified Cardiac Dysrhythmias 01/27/2010 TIMOTHY ADMIRALTY LAWYER, WOLF S 787.02 Nausea Alone 01/27/2010 GAGANDEEP DDS, MELISSA Raymundo 427.89 Other Specified Cardiac Dysrhythmias 01/27/2010 GAGANDEEP WILCOXSMELISSA 787.02 Nausea Alone 01/27/2010 BRITNEY WILCOXSMARIA LUISA 427.89 Other Specified Cardiac Dysrhythmias 01/27/2010 BRITNEY DDS, MARIA LUISA 787.02 Nausea Alone 01/27/2010 HUSAM ORLANDO APRN 427.89 Other Specified Cardiac Dysrhythmias 01/27/2010 HUSAM ORLANDO APRN 787.02 Nausea Alone 01/27/2010 TIMOTHY ADMIRALTY LAWYER, WOLF S 427.89 Other Specified Cardiac Dysrhythmias 01/27/2010 TIMOTHY ADMIRALTY LAWYER, WOLF S 787.02 Nausea Alone 01/27/2010 TIMOTHY ADMIRALTY LAWYER, WOLF S 427.89 Other Specified Cardiac Dysrhythmias 01/27/2010 TIMOTHY ADMIRALTY LAWYER, WOLF S 787.02 Nausea Alone 01/27/2010 KADY MATTHEWS MD 427.89 Other Specified Cardiac Dysrhythmias 01/27/2010 KADY MATTHEWS MD 787.02 Nausea Alone 01/27/2010 TIMOTHY ADM[employer], WOLF S 427.89 Other Specified Cardiac Dysrhythmias 01/27/2010 TIMOTHY [employer], WOLF S 787.02 Nausea Alone 01/27/2010 [employer], WOLF S 427.89 Other Specified Cardiac Dysrhythmias 01/27/2010 [employer]OT[employer], WOLF S 787.02 Nausea Alone 01/27/2010 TAN DDS, MARIA LUISA 427.89 Other Specified Cardiac Dysrhythmias 01/27/2010 TAN DDS, MARIA LUISA 787.02 Nausea Alone 01/27/2010 MAX DDS, KATHYA Chopra 427.89 Other Specified Cardiac Dysrhythmias 01/27/2010 MAX DDS, KATHYA Chopra 787.02 Nausea Alone 02/03/2010 781.0 Abnormal Involuntary Movements 02/03/2010 781.0 Abnormal Involuntary Movements 02/03/2010 LJ DDS, KAELA F 781.0 Abnormal Involuntary Movements 02/03/2010 HUSAM ORLANDO APRN 781.0 Abnormal Involuntary Movements 02/03/2010 TIMOTHY GAINESN, WOLF S 781.0 Abnormal Involuntary Movements 02/03/2010 781.0 Abnormal Involuntary Movements 02/03/2010 BONNIE DOMORAIMA K 781.0 Abnormal Involuntary Movements 02/03/2010 781.0 Abnormal Involuntary Movements 02/03/2010 781.0 Abnormal Involuntary Movements 02/03/2010 781.0 Abnormal Involuntary Movements 02/03/2010 781.0 Abnormal Involuntary Movements 02/03/2010 NORMA DDSJUAREZ 781.0 Abnormal Involuntary Movements 02/03/2010 NORMA DDSJUAREZ 781.0 Abnormal Involuntary Movements 02/03/2010 NICOLE DOMORAIMA K 781.0 Abnormal Involuntary Movements 02/03/2010 [employer], WOLF S 781.0 Abnormal Involuntary Movements 02/03/2010 [employer], WOLF S 781.0 Abnormal Involuntary Movements 02/03/2010 [employer], WOLF S 781.0 Abnormal Involuntary Movements 02/03/2010 [employer], WOLF S 781.0 Abnormal Involuntary Movements 02/03/2010 [employer], WOLF S 781.0 Abnormal Involuntary Movements 02/03/2010 GAGANDEEP DDS, MELISSA J 781.0 Abnormal Involuntary Movements 02/03/2010 BRITNEY WILCOXS, MARIA LUISA 781.0 Abnormal Involuntary Movements 02/03/2010 HUSAM ORLANDO APRN 781.0 Abnormal Involuntary Movements 02/03/2010 TIMOTHY KAN, WOLF S 781.0 Abnormal Involuntary Movements 02/03/2010 HAFSA AGUIRRE APRNNDA S 781.0 Abnormal Involuntary Movements 02/03/2010 CASSIE [...] HUSAM ORLANDO APRN 780.52 Insomnia, Unspecified 02/06/2010 YU AGUIRRE APRNA S 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 02/06/2010 HAFSA AGUIRRE APRNNDA S 780.52 Insomnia, Unspecified 02/06/2010 296.33 MO [...] BEHAVIOR 02/06/2010 780.52 Insomnia, Unspecified 02/06/2010 NORMA JERIS, JUAREZ Pierre 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 02/06/2010 NORMA JERIS, JUAREZ Pierre 780.52 Insomnia, Unspecified 02/06/2010 NORMA JERIS, JUAREZ Pierre 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 02/06/2010 NORMA WILCOXS, JUAREZ Pierre 780.52 Insomnia, Unspecified 02/06/2010 NICOLE DOLILLIANA K 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 02/06/2010 NICOLE DO MORAIMA K 780.52 Insomnia, Unspecified 02/06/2010 [employer], WOLF S 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 02/06/2010 [employer]HY [employer], WOLF S 780.52 Insomnia, Unspecified 02/06/2010 [employer], WOLF S 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 02/06/2010 [employer]HY [employer]ER, WOLF S 780.52 Insomnia, Unspecified 02/06/2010 TIMOTHY ADMIRALTY LAWYER, WOLF S 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 02/06/2010 TIMOTHY ADMIRALTY LAWYER, WOLF S 780.52 Insomnia, Unspecified 02/06/2010 TIMOTHY ADMIRALTY LAWYER, WOLF S 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 02/06/2010 TIMOTHY ADMIRALTY LAWYER, WOLF S 780.52 Insomnia, Unspecified 02/06/2010 TIMOTHY ADMIRALTY LAWYER, WOLF S 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 02/06/2010 TIMOTHY ADMIRALTY LAWYER, WOLF S 780.52 Insomnia, Unspecified 02/06/2010 MELISSA DONIS DDS 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 02/06/2010 MELISSA DONIS DDS J 780.52 Insomnia, Unspecified 02/06/2010 TAN DDS, [...] KAN WOLF S 780.52 Insomnia, Unspecified 02/06/2010 BRITNEY WILCOXSMARIA LUISA 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 02/06/2010 BRITNEY WILCOXS, MARIA LUISA 780.52 Insomnia, Unspecified 02/06/2010 MAX WILCOXSKATHYA [...] ORLANDO APRN V72.31 Routine Gynecological Examination 04/18/2010 HAFSA AGUIRRE APRNNDA S 616.10 Vaginitis And Vulvovaginitis, Unspecified 04/18/2010 HAFSA AGUIRRE APRNNDA S 788.1 Dysuria 04/18/2010 TIMOTHY KAN WOLF S V72.31 Routine Gynecological Examination 04/18/2010 616.10 Vaginitis And Vulvovaginitis, Unspecified 04/18/2010 788.1 Dysuria 04/18/2010 V72.31 Routine Gynecological Examination 04/18/2010 MORAIMA NICOLE DO K 616.10 Vaginitis And Vulvovaginitis, Unspecified 04/18/2010 MORAIMA NICOLE DO K 788.1 Dysuria 04/18/2010 MORAIMA NICOLE DO K V72.31 Routine Gynecological Examination 04/18/2010 616.10 [...] Routine Gynecological Examination 04/18/2010 NORMA DDS, JUAREZ M 616.10 Vaginitis And Vulvovaginitis, Unspecified 04/18/2010 NORMA DDS, JUAREZ M 788.1 Dysuria 04/18/2010 NORMA DDS, JUAREZ M V72.31 Routine Gynecological Examination 04/18/2010 NORMA DDS, JUAREZ M 616.10 Vaginitis And Vulvovaginitis, Unspecified 04/18/2010 NORMA DDS, JUAREZ M 788.1 Dysuria 04/18/2010 NORMA DDS, JUAREZ M V72.31 Routine Gynecological Examination 04/18/2010 NICOLE DO, MORAIMA K 616.10 Vaginitis And Vulvovaginitis, Unspecified 04/18/2010 NICOLE DO, MORAIMA K 788.1 Dysuria 04/18/2010 NICOLE DO, MORAIMA K V72.31 Routine Gynecological Examination 04/18/2010 TIMOTHY ADMIRALTY LAWYER, WOLF S 616.10 Vaginitis And Vulvovaginitis, Unspecified 04/18/2010 TIMOTHY ADMIRALTY LAWYER, WOLF S 788.1 Dysuria 04/18/2010 TIMOTHY ADMIRALTY LAWYER, WOLF S V72.31 Routine Gynecological Examination 04/18/2010 TIMOTHY ADMIRALTY LAWYER, WOLF S 616.10 Vaginitis And Vulvovaginitis, Unspecified 04/18/2010 TIMOTHY ADMIRALTY LAWYER, WOLF S 788.1 Dysuria 04/18/2010 TIMOTHY ADMIRALTY LAWYER, WOLF S V72.31 Routine Gynecological Examination 04/18/2010 TIMOTHY ADMIRALTY LAWYER, WOLF S 616.10 Vaginitis And Vulvovaginitis, Unspecified 04/18/2010 TIMOTHY ADMIRALTY LAWYER, WOLF S 788.1 Dysuria 04/18/2010 TIMOTHY ADMIRALTY LAWYER, WOLF S V72.31 Routine Gynecological Examination 04/18/2010 TIMOTHY ADMIRALTY LAWYER, WOLF S 616.10 Vaginitis And Vulvovaginitis, Unspecified 04/18/2010 TIMOTHY ADMIRALTY LAWYER, WOLF S 788.1 Dysuria 04/18/2010 TIMOTHY ADMIRALTY LAWYER, WOLF S V72.31 Routine Gynecological Examination 04/18/2010 TIMOTHY KAN WLOF S 616.10 Vaginitis And Vulvovaginitis, Unspecified 04/18/2010 [...] APRN 616.10 Vaginitis And Vulvovaginitis, Unspecified 04/18/2010 JOHANNY KAN HUSAM T 788.1 Dysuria 04/18/2010 HUSAM ORLANDO APRN T V72.31 Routine Gynecological Examination 04/18/2010 TIMOTHY KAN WOLF S 616.10 Vaginitis And Vulvovaginitis, Unspecified 04/18/2010 TIMOTHY KAN, WOLF S 788.1 Dysuria 04/18/2010 TIMOTHY KAN, WOLF S V72.31 Routine Gynecological Examination 04/18/2010 TIMOTHY KAN WOLF S 616.10 Vaginitis And Vulvovaginitis, Unspecified 04/18/2010 TIMOTHY ADMIRALTY LAWYER, WOLF S 788.1 Dysuria 04/18/2010 TIMOTHY KAN, WOLF S V72.31 Routine Gynecological Examination 04/18/2010 CASSIE DOMINGUEZ, KADY Raymundo 616.10 Vaginitis And Vulvovaginitis, Unspecified 04/18/2010 CASSIE DOMINGUEZ, KADY Raymundo 788.1 Dysuria 04/18/2010 CASSIE DOMINGUEZ, KADY Raymundo V72.31 Routine Gynecological Examination 04/18/2010 TIMOTHY ADMIRALTY LAWYER, WOLF S 616.10 Vaginitis And Vulvovaginitis, Unspecified 04/18/2010 TIMOTHY ADMIRALTY LAWYER, WOLF S 788.1 Dysuria 04/18/2010 TIMOTHY ADMIRALTY LAWYER, WOLF S V72.31 Routine Gynecological Examination 04/18/2010 TIMOTHY ADMIRALTY LAWYER, WOLF S 616.10 Vaginitis And Vulvovaginitis, Unspecified 04/18/2010 TIMOTHY ADMIRALTY LAWYER, WOLF S 788.1 Dysuria 04/18/2010 TIMOTHY ADMIRALTY LAWYER, WOLF S V72.31 Routine Gynecological Examination 04/18/2010 TAN DDS, [...] Disorders Of Function Of Stomach 08/22/2010 TIMOTHY ADMIRALTY LAWYER, WOLF S 461.9 Sinusitis Acute 08/22/2010 TIMOTHY ADMIRALTY LAWYER, WOLF S 536.8 Dyspepsia And Other Specified Disorders Of Function Of Stomach 08/22/2010 461.9 Sinusitis Acute 08/22/2010 536.8 Dyspepsia And Other Specified Disorders Of Function Of Stomach 08/22/2010 NICOLE DO MORAIMA K 461.9 Sinusitis Acute 08/22/2010 NICOLE DOLILLIANA K 536.8 Dyspepsia And Other Specified Disorders [...] Specified Disorders Of Function Of Stomach 08/22/2010 LILLIAN NICOLE DOA K 461.9 Sinusitis Acute 08/22/2010 LILLIAN NICOLE DOA K 536.8 Dyspepsia And Other Specified Disorders Of Function Of Stomach 08/22/2010 TIMOTHY ADMIRALTY LAWYER, WOLF S 461.9 Sinusitis Acute 08/22/2010 TIMOTHY ADMIRALTY LAWYER, WOLF S 536.8 Dyspepsia And Other Specified Disorders Of Function Of Stomach 08/22/2010 TIMOTHY ADMIRALTY LAWYER, WOLF S 461.9 Sinusitis Acute 08/22/2010 TIMOTHY ADMIRALTY LAWYER, WOLF S 536.8 Dyspepsia And Other Specified Disorders Of Function Of Stomach 08/22/2010 TIMOTHY ADMIRALTY LAWYER, WOLF S 461.9 Sinusitis Acute 08/22/2010 TIMOTHY ADMIRALTY LAWYER, WOLF S 536.8 Dyspepsia And Other Specified Disorders Of Function Of Stomach 08/22/2010 TIMOTHY ADMIRALTY LAWYER, WOLF S 461.9 Sinusitis Acute 08/22/2010 TIMOTHY ADMIRALTY LAWYER, WOLF S 536.8 Dyspepsia And Other Specified Disorders Of Function Of Stomach 08/22/2010 TIMOTHY ADMIRALTY LAWYER, WOLF S 461.9 Sinusitis Acute 08/22/2010 TIMOTHY ADMIRALTY LAWYER, WOLF S 536.8 Dyspepsia And Other Specified Disorders Of Function Of Stomach 08/22/2010 WHITE DDS, MELISSA J 461.9 Sinusitis Acute 08/22/2010 WHITE DDS, MELISSA J 536.8 Dyspepsia And Other Specified Disorders Of Function Of Stomach 08/22/2010 TAN DDS, MARIA LUISA 461.9 Sinusitis Acute 08/22/2010 BRITNEY WILCOXS, MARIA LUISA 536.8 Dyspepsia And Other Specified Disorders Of Function Of Stomach 08/22/2010 HUSAM ORLANDO APRN 461.9 Sinusitis Acute 08/22/2010 HUSAM ORLANDO APRN 536.8 Dyspepsia And Other Specified Disorders Of Function Of Stomach 08/22/2010 TIMOTHY GAINESN, WOLF S 461.9 Sinusitis Acute 08/22/2010 TIMOTHY ADMIRALTY LAWYER, WOLF S 536.8 Dyspepsia And Other Specified Disorders Of Function Of Stomach 08/22/2010 TIMOTHY GAINESN, WOLF S 461.9 Sinusitis Acute 08/22/2010 TIMOTHY ADMIRALTY LAWYER, WOLF S 536.8 Dyspepsia And Other Specified Disorders Of Function Of Stomach 08/22/2010 KADY MATTHEWS MD 461.9 Sinusitis Acute 08/22/2010 CASSIE DOMINGUEZ, KADY Raymundo 536.8 Dyspepsia And Other Specified Disorders Of Function Of Stomach 08/22/2010 TIMOTHY ADMIRALTY LAWYER, WOLF S 461.9 Sinusitis Acute 08/22/2010 TIMOTHY ADMIRALTY LAWYER, WOLF S 536.8 Dyspepsia And Other Specified Disorders Of Function Of Stomach 08/22/2010 TIMOTHY ADMIRALTY LAWYER, WOLF S 461.9 Sinusitis Acute 08/22/2010 TIMOTHY ADMIRALTY LAWYER, WOLF S 536.8 Dyspepsia And Other Specified Disorders Of Function Of Stomach 08/22/2010 BRITNEY WILCOXSMARIA LUISA 461.9 Sinusitis Acute 08/22/2010 BRITNEY DDS, MARIA LUISA 536.8 Dyspepsia And Other Specified Disorders Of Function Of Stomach 08/22/2010 MAX DDS, KATHYA D 461.9 Sinusitis Acute 08/22/2010 MAX DDS, KATHYA D 536.8 Dyspepsia And Other Specified Disorders Of Function Of Stomach 10/24/2010 466.0 Acute Bronchitis 10/24/2010 466.0 Acute Bronchitis 10/24/2010 LJ DDS, KAELA F 466.0 Acute Bronchitis 10/24/2010 HUSAM ORLANDO APRN 466.0 Acute Bronchitis 10/24/2010 TIMOTHY ADMIRALTY LAWYER, WOLF S 466.0 Acute Bronchitis 10/24/2010 466.0 Acute Bronchitis 10/24/2010 NICOLE DO, MORAIMA K 466.0 Acute Bronchitis 10/24/2010 466.0 Acute Bronchitis 10/24/2010 466.0 Acute Bronchitis 10/24/2010 466.0 Acute Bronchitis 10/24/2010 466.0 Acute Bronchitis 10/24/2010 NORMA WILCOXS, JUAREZ M 466.0 Acute Bronchitis 10/24/2010 NORMA WILCOXS, JUAREZ Pierre 466.0 Acute Bronchitis 10/24/2010 NICOLE DO, MORAIMA K 466.0 Acute Bronchitis 10/24/2010 TIMOTHY ADMIRALTY LAWYER, WOLF S 466.0 Acute Bronchitis 10/24/2010 TIMOTHY ADMIRALTY LAWYER, WOLF S 466.0 Acute Bronchitis 10/24/2010 TIMOTHY ADMIRALTY LAWYER, WOLF S 466.0 Acute Bronchitis 10/24/2010 TIMOTHY ADMIRALTY LAWYER, WOLF S 466.0 Acute Bronchitis 10/24/2010 TIMOTHY ADMIRALTY LAWYER, WOLF S 466.0 Acute Bronchitis 10/24/2010 GAGANDEEP MARTINES, MELISSA Raymundo 466.0 Acute Bronchitis 10/24/2010 BRITNEY WILCOXS, MARIA LUISA 466.0 Acute Bronchitis 10/24/2010 HUSAM ORLANDO APRN 466.0 Acute Bronchitis 10/24/2010 TIMOTHY ADMIRALTY LAWYER, WOLF S 466.0 Acute Bronchitis 10/24/2010 TIMOTHY ADMIRALTY LAWYER, WOLF S 466.0 Acute Bronchitis 10/24/2010 KADY MATTHEWS MD 466.0 Acute Bronchitis 10/24/2010 TIMOTHY ADMIRALTY LAWYER, WOLF S 466.0 Acute Bronchitis 10/24/2010 TIMOTHY ADMIRALTY LAWYER, WOLF S 466.0 Acute Bronchitis 10/24/2010 BRITNEY DDS, MARIA LUISA 466.0 Acute Bronchitis 10/24/2010 MAX DDS, KATHYA Chopra 466.0 Acute Bronchitis 12/05/2010 826.0 Closed Fracture Of One Or More Phalanges Of Foot 12/05/2010 826.0 Closed Fracture Of One Or More Phalanges Of Foot 12/05/2010 LJ DDS, KAELA F 826.0 Closed Fracture Of One Or More Phalanges Of Foot 12/05/2010 JOHANNY GAINESNHUSAM 826.0 Closed Fracture Of One Or More Phalanges Of Foot 12/05/2010 TIMOTHY ADMIRALTY LAWYER, WOLF S 826.0 Closed Fracture Of One [...] Or More Phalanges Of Foot 12/05/2010 TIMOTHY ADMIRALTY LAWYER, WOLF S 826.0 Closed Fracture Of One Or More Phalanges Of Foot 12/05/2010 TIMOTHY ADMIRALTY LAWYER, WOLF S 826.0 Closed Fracture Of One Or More Phalanges Of Foot 12/05/2010 TIMOTHY ADMIRALTY LAWYER, WOLF S 826.0 Closed Fracture Of One Or More Phalanges Of Foot 12/05/2010 TIMOTHY ADMIRALTY LAWYER, WOLF S 826.0 Closed Fracture Of One Or More Phalanges Of Foot 12/05/2010 TIMOTHY ADMIRALTY LAWYER, WOLF S 826.0 Closed Fracture Of One Or More Phalanges Of Foot 12/05/2010 GAGANDEEP DDS, MELISSA Raymundo 826.0 Closed Fracture Of One Or More Phalanges Of Foot 12/05/2010 BRITNEY WILCOXS, MARIA LUISA 826.0 Closed Fracture Of One Or More Phalanges Of Foot 12/05/2010 HUSAM ORLANDO APRN 826.0 Closed Fracture Of One Or More Phalanges Of Foot 12/05/2010 TIMOTHY ADMIRALTY LAWYER, WOLF S 826.0 Closed Fracture Of One Or More Phalanges Of Foot 12/05/2010 TIMOTHY ADMIRALTY LAWYER, WOLF S 826.0 Closed Fracture Of One Or More Phalanges Of Foot 12/05/2010 CASSIE DOMINGUEZ, KADY Raymundo 826.0 Closed Fracture Of One Or More Phalanges Of Foot 12/05/2010 TIMOTHY ADMIRALTY LAWYER, WOLF S 826.0 Closed Fracture Of One Or More Phalanges Of Foot 12/05/2010 TIMOTHY ADMIRALTY LAWYER, WOLF S 826.0 Closed Fracture Of One Or More Phalanges Of Foot 12/05/2010 BRITNEY WILCOXS, MARIA LUISA 826.0 Closed Fracture Of One Or More Phalanges Of Foot 12/05/2010 MAX WILCOXS, KATHYA Chopra 826.0 Closed Fracture Of One Or More Phalanges Of Foot 11/03/2011 465.9 Upper Respiratory Infection 11/03/2011 465.9 Upper Respiratory Infection 11/03/2011 LJ WILCOXS, KAELA F 465.9 Upper Respiratory Infection 11/03/2011 HUSAM ORLANDO [...] NICOLE DO 465.9 Upper Respiratory Infection 11/03/2011 TIMOTHY ADMIRALTY LAWYER, WOLF S 465.9 Upper Respiratory Infection 11/03/2011 TIMOTHY ADMIRALTY LAWYER, WOLF S 465.9 Upper Respiratory Infection 11/03/2011 TIMOTHY ADMIRALTY LAWYER, WOLF S 465.9 Upper Respiratory Infection 11/03/2011 TIMOTHY ADMIRALTY LAWYER, WOLF S 465.9 Upper Respiratory Infection 11/03/2011 TIMOTHY ADMIRALTY LAWYER, WOLF S 465.9 Upper Respiratory Infection 11/03/2011 GAGANDEEP MARTINES, MELISSA Raymundo 465.9 Upper Respiratory Infection 11/03/2011 TANJASON MARTINES, MARIA LUISA 465.9 Upper Respiratory Infection 11/03/2011 HUSAM ORLANDO APRN 465.9 Upper Respiratory Infection 11/03/2011 TIMOTHY ADMIRALTY LAWYER, WOLF S 465.9 Upper Respiratory Infection 11/03/2011 TIMOTHY ADMIRALTY LAWYER, WOLF S 465.9 Upper Respiratory Infection 11/03/2011 KADY MATTHEWS MD 465.9 Upper Respiratory Infection 11/03/2011 TIMOTHY ADMIRALTY LAWYER, WOLF S 465.9 Upper Respiratory Infection 11/03/2011 TIMOTHY ADMIRALTY LAWYER, WOLF S 465.9 Upper Respiratory Infection 11/03/2011 BRITNEY WILCOXS, MARIA LUISA 465.9 Upper Respiratory Infection 11/03/2011 MAX WILCOXS, KATHYA Chopra 465.9 Upper Respiratory Infection 11/28/2011 V04.81 FLU DX ( MEDICARE ONLY) 11/28/2011 V04.81 FLU DX ( MEDICARE ONLY) 11/28/2011 KAELA CALHOUN DDS V04.81 FLU DX (MEDICARE ONLY) 11/28/2011 HUSAM ORLANDO APRN V04.81 FLU DX (MEDICARE ONLY) 11/28/2011 TIMOTHY KAN, WOLF S V04.81 FLU DX (MEDICARE ONLY) 11/28/2011 V04.81 FLU DX ( MEDICARE ONLY) 11/28/2011 MORAIMA NICOLE DO V04.81 FLU DX (MEDICARE ONLY) 11/28/2011 V04.81 FLU DX ( MEDICARE ONLY) 11/28/2011 V04.81 FLU DX ( MEDICARE ONLY) 11/28/2011 V04.81 FLU DX ( MEDICARE ONLY) 11/28/2011 V04.81 FLU DX ( MEDICARE ONLY) 11/28/2011 NORMA WILCOXS, JUAREZ Pierre V04.81 FLU DX (MEDICARE ONLY) 11/28/2011 NORMA MARTINES, JUAREZ Pierre V04.81 FLU DX (MEDICARE ONLY) 11/28/2011 MORAIMA NICOLE DO V04.81 FLU DX (MEDICARE ONLY) 11/28/2011 TIMOTHY ADMIRALTY LAWYER, WOLF S V04.81 FLU DX (MEDICARE ONLY) 11/28/2011 TIMOTHY ADMIRALTY LAWYER, WOLF S V04.81 FLU DX (MEDICARE ONLY) 11/28/2011 TIMOTHY ADMIRALTY LAWYER, WOLF S V04.81 FLU DX (MEDICARE ONLY) 11/28/2011 TIMOTHY ADMIRALTY LAWYER, WOLF S V04.81 FLU DX (MEDICARE ONLY) 11/28/2011 TIMOTHY ADMIRALTY LAWYER, WOLF S V04.81 FLU DX (MEDICARE ONLY) 11/28/2011 GAGANDEEP MARTINES, MELISSA Raymundo V04.81 FLU DX (MEDICARE ONLY) 11/28/2011 BRITNEY WILCOXSMARIA LUISA V04.81 FLU DX (MEDICARE ONLY) 11/28/2011 HUSAM ORLANDO APRN V04.81 FLU DX (MEDICARE ONLY) 11/28/2011 TIMOTHY ADMIRALTY LAWYER, WOLF S V04.81 FLU DX (MEDICARE ONLY) 11/28/2011 TIMOTHY ADMIRALTY LAWYER, WOLF S V04.81 FLU DX (MEDICARE ONLY) 11/28/2011 CASSIE DOMINGUEZ, KADY Raymundo V04.81 FLU DX (MEDICARE ONLY) 11/28/2011 TIMOTHY ADMIRALTY LAWYER, WOLF S V04.81 FLU DX (MEDICARE ONLY) 11/28/2011 TIMOTHY ADMIRALTY LAWYER, WOLF S V04.81 FLU DX (MEDICARE ONLY) 11/28/2011 BRITNEY WILCOXSMARIA LUISA V04.81 FLU DX (MEDICARE ONLY) 11/28/2011 MAX WILCOXS, KATHYA Chopra V04.81 FLU DX (MEDICARE ONLY) 02/21/2012 427.9 CARDIAC DYSRHYTHMIA UNSPECIFIED 02/21/2012 788.1 DYSURIA 02/21/2012 427.9 CARDIAC DYSRHYTHMIA UNSPECIFIED 02/21/2012 788.1 DYSURIA 02/21/2012 LJ WILCOXS, KAELA Rdz 427.9 CARDIAC DYSRHYTHMIA UNSPECIFIED 02/21/2012 LJ DDS, AKELA F 788.1 DYSURIA 02/21/2012 HUSAM ORLANDO APRN T 427.9 CARDIAC DYSRHYTHMIA UNSPECIFIED 02/21/2012 HUSAM ORLANDO APRN 788.1 DYSURIA 02/21/2012 TIMOTHY ADMIRALTY LAWYER, WOLF S 427.9 CARDIAC DYSRHYTHMIA UNSPECIFIED 02/21/2012 TIMOTHY KAN, WOLF S 788.1 DYSURIA 02/21/2012 427.9 CARDIAC DYSRHYTHMIA UNSPECIFIED 02/21/2012 788.1 DYSURIA 02/21/2012 NICOLE DO MORAIMA K 427.9 CARDIAC DYSRHYTHMIA UNSPECIFIED 02/21/2012 NICOLE DO MORAIMA K 788.1 DYSURIA 02/21/2012 427.9 CARDIAC DYSRHYTHMIA UNSPECIFIED 02/21/2012 788.1 DYSURIA 02/21/2012 427.9 CARDIAC DYSRHYTHMIA UNSPECIFIED 02/21/2012 788.1 DYSURIA 02/21/2012 427.9 CARDIAC DYSRHYTHMIA UNSPECIFIED 02/21/2012 788.1 DYSURIA 02/21/2012 427.9 CARDIAC DYSRHYTHMIA UNSPECIFIED 02/21/2012 788.1 DYSURIA 02/21/2012 NORMA DDS, JUAREZ Pierre 427.9 CARDIAC DYSRHYTHMIA UNSPECIFIED 02/21/2012 NORMA WILCOXS, JUAREZ Pierre 788.1 DYSURIA 02/21/2012 NORMA WILCOXS, JUAREZ M 427.9 CARDIAC DYSRHYTHMIA UNSPECIFIED 02/21/2012 NORMA WILCOXS, JUAREZ Pierre 788.1 DYSURIA 02/21/2012 NICOLE DO MORAIMA K 427.9 CARDIAC DYSRHYTHMIA UNSPECIFIED 02/21/2012 NICOLE DO MORAIMA K 788.1 DYSURIA 02/21/2012 TIMOTHY ADMIRALTY LAWYER, WOLF S 427.9 CARDIAC DYSRHYTHMIA UNSPECIFIED 02/21/2012 TIMOTHY ADMIRALTY LAWYER, WOLF S 788.1 DYSURIA 02/21/2012 TIMOTHY ADMIRALTY LAWYER, WOLF S 427.9 CARDIAC DYSRHYTHMIA UNSPECIFIED 02/21/2012 TIMOTHY ADMIRALTY LAWYER, WOLF S 788.1 DYSURIA 02/21/2012 TIMOTHY ADMIRALTY LAWYER, WOLF S 427.9 CARDIAC DYSRHYTHMIA UNSPECIFIED 02/21/2012 TIMOTHY ADMIRALTY LAWYER, WOLF S 788.1 DYSURIA 02/21/2012 TIMOTHY ADMIRALTY LAWYER, WOLF S 427.9 CARDIAC DYSRHYTHMIA UNSPECIFIED 02/21/2012 TIMOTHY ADMIRALTY LAWYER, WOLF S 788.1 DYSURIA 02/21/2012 TIMOTHY ADMIRALTY LAWYER, WOLF S 427.9 CARDIAC DYSRHYTHMIA UNSPECIFIED 02/21/2012 TIMOTHY ADMIRALTY LAWYER, WOLF S 788.1 DYSURIA 02/21/2012 WHITE DDS, MELISSA J 427.9 CARDIAC DYSRHYTHMIA UNSPECIFIED 02/21/2012 WHITE DDS, MELISSA J 788.1 DYSURIA 02/21/2012 TAN DDS, MARIA LUISA 427.9 CARDIAC DYSRHYTHMIA UNSPECIFIED 02/21/2012 TAN DDS, MARIA LUISA 788.1 DYSURIA 02/21/2012 HUSAM ORLANDO APRN 427.9 CARDIAC DYSRHYTHMIA UNSPECIFIED 02/21/2012 HUSAM ORLANDO APRN 788.1 DYSURIA 02/21/2012 TIMOTHY GAINESN, WOLF S 427.9 CARDIAC DYSRHYTHMIA UNSPECIFIED 02/21/2012 TIMOTHY KAN, WOLF S 788.1 DYSURIA 02/21/2012 TIMOTHY ADMIRALTY LAWYER, WOLF S 427.9 CARDIAC DYSRHYTHMIA UNSPECIFIED 02/21/2012 TIMOTHY ADMIRALTY LAWYER, WOLF S 788.1 DYSURIA 02/21/2012 CASSIE DOMINGUEZ, KADY Raymundo 427.9 CARDIAC DYSRHYTHMIA UNSPECIFIED 02/21/2012 CASSIE DOMINGUEZ, KADY Raymundo 788.1 DYSURIA 02/21/2012 TIMOTHY ADMIRALTY LAWYER, WOLF S 427.9 CARDIAC DYSRHYTHMIA UNSPECIFIED 02/21/2012 TIMOTHY ADMIRALTY LAWYER, WOLF S 788.1 DYSURIA 02/21/2012 TIMOTHY ADMIRALTY LAWYER, WOLF S 427.9 CARDIAC DYSRHYTHMIA UNSPECIFIED 02/21/2012 TIMOTHY ADMIRALTY LAWYER, WOLF S 788.1 DYSURIA 02/21/2012 TAN DDS, MARIA LUISA 427.9 CARDIAC DYSRHYTHMIA UNSPECIFIED 02/21/2012 TAN DDS, MARIA LUISA 788.1 DYSURIA 02/21/2012 MAX DDS, KATHYA Chopra 427.9 CARDIAC DYSRHYTHMIA UNSPECIFIED 02/21/2012 MAX DDS, KATHYA Chopra 788.1 DYSURIA 11/11/2012 789.03 ABDOMINAL PAIN RIGHT LOWER QUADRANT 11/11/2012 LJ DDS, KAELA F 789.03 ABDOMINAL PAIN RIGHT LOWER QUADRANT 11/11/2012 HUSAM ORLANDO APRN 789.03 ABDOMINAL PAIN RIGHT LOWER QUADRANT 11/11/2012 TIMOTHY GAINESN, WOLF S 789.03 ABDOMINAL PAIN RIGHT LOWER QUADRANT 11/11/2012 789.03 ABDOMINAL PAIN RIGHT LOWER QUADRANT 11/11/2012 MORAIMA NICOLE DO 789.03 ABDOMINAL PAIN RIGHT LOWER QUADRANT 11/11/2012 [...] ABDOMINAL PAIN RIGHT LOWER QUADRANT 11/11/2012 TIMOTHY ADMIRALTY LAWYER, WLOF S 789.03 ABDOMINAL PAIN RIGHT LOWER QUADRANT 11/11/2012 TIMOTHY ADMIRALTY LAWYER, WOLF S 789.03 ABDOMINAL PAIN RIGHT LOWER QUADRANT 11/11/2012 TIMOTHY ADMIRALTY LAWYER, WOLF S 789.03 ABDOMINAL PAIN RIGHT LOWER QUADRANT 11/11/2012 TIMOTHY ADMIRALTY LAWYER, WOLF S 789.03 ABDOMINAL PAIN RIGHT LOWER QUADRANT 11/11/2012 GAGANDEEP DDS, MELISSA Raymundo 789.03 ABDOMINAL PAIN RIGHT LOWER QUADRANT 11/11/2012 TAN DDS, MARIA LUISA 789.03 ABDOMINAL PAIN RIGHT LOWER QUADRANT 11/11/2012 HUSAM ORLANDO APRN 789.03 ABDOMINAL PAIN RIGHT LOWER QUADRANT 11/11/2012 TIMOTHY KAN, WOLF S 789.03 ABDOMINAL PAIN RIGHT LOWER QUADRANT 11/11/2012 HAFSA AGUIRRE APRNNDA S 789.03 ABDOMINAL PAIN RIGHT LOWER QUADRANT 11/11/2012 CASSIE DOMINGUEZ, KADY Raymundo 789.03 ABDOMINAL PAIN RIGHT LOWER QUADRANT 11/11/2012 HAFSA AGUIRRE APRNNDA S 789.03 ABDOMINAL PAIN RIGHT LOWER QUADRANT 11/11/2012 TIMOTHY KAN, WOLF S 789.03 ABDOMINAL PAIN RIGHT LOWER QUADRANT 11/11/2012 BRITNEY WILCOXS, MARIA LUISA 789.03 ABDOMINAL PAIN RIGHT LOWER QUADRANT 11/11/2012 MAX WILCOXS, KATHYA Chopra 789.03 ABDOMINAL PAIN RIGHT LOWER QUADRANT 11/20/2012 LJ DDS, KAELA F 564.00 UNSPECIFIED CONSTIPATION 11/20/2012 LJ DDS, KAELA F 784.42 DYSPHONIA 11/20/2012 HUSAM ORLANDO APRN 564.00 UNSPECIFIED CONSTIPATION 11/20/2012 HUSAM ORLANDO APRN 784.42 DYSPHONIA 11/20/2012 YU AGUIRRE APRNA S 564.00 UNSPECIFIED CONSTIPATION 11/20/2012 HAFSA AGUIRRE APRNNDA S 784.42 DYSPHONIA 11/20/2012 564.00 UNSPECIFIED CONSTIPATION 11/20/2012 784.42 DYSPHONIA 11/20/2012 MORAIMA NICOLE DO 564.00 UNSPECIFIED CONSTIPATION 11/20/2012 MORAIMA NICOLE DO 784.42 DYSPHONIA 11/20/2012 564.00 UNSPECIFIED CONSTIPATION 11/20/2012 784.42 DYSPHONIA 11/20/2012 564.00 UNSPECIFIED CONSTIPATION 11/20/2012 784.42 DYSPHONIA 11/20/2012 564.00 UNSPECIFIED CONSTIPATION 11/20/2012 784.42 DYSPHONIA 11/20/2012 564.00 UNSPECIFIED CONSTIPATION 11/20/2012 784.42 DYSPHONIA 11/20/2012 NORMA WILCOXS, JUAREZ Pierre 564.00 UNSPECIFIED CONSTIPATION 11/20/2012 NORMA MARTINES, JUAREZ Pierre 784.42 DYSPHONIA 11/20/2012 NORMA MARTINES, JUAREZ Pierre 564.00 UNSPECIFIED CONSTIPATION 11/20/2012 NORMA MARTINES, JUAREZ Pierre 784.42 DYSPHONIA 11/20/2012 MORAIMA NICOLE DO 564.00 UNSPECIFIED CONSTIPATION 11/20/2012 MORAIMA NICOLE DO 784.42 DYSPHONIA 11/20/2012 TIMOTHY ADMIRALTY LAWYER, WOLF S 564.00 UNSPECIFIED CONSTIPATION 11/20/2012 TIMOTHY ADMIRALTY LAWYER, WOLF S 784.42 DYSPHONIA 11/20/2012 TIMOTHY ADMIRALTY LAWYER, WOLF S 564.00 UNSPECIFIED CONSTIPATION 11/20/2012 TIMOTHY ADMIRALTY LAWYER, WOLF S 784.42 DYSPHONIA 11/20/2012 TIMOTHY ADMIRALTY LAWYER, WOLF S 564.00 UNSPECIFIED CONSTIPATION 11/20/2012 TIMOTHY ADMIRALTY LAWYER, WOLF S 784.42 DYSPHONIA 11/20/2012 TIMOTHY ADMIRALTY LAWYER, WOLF S 564.00 UNSPECIFIED CONSTIPATION 11/20/2012 TIMOTHY ADMIRALTY LAWYER, WOLF S 784.42 DYSPHONIA 11/20/2012 TIMOTHY ADMIRALTY LAWYER, WOLF S 564.00 UNSPECIFIED CONSTIPATION 11/20/2012 TIMOTHY ADMIRALTY LAWYER, WOLF S 784.42 DYSPHONIA 11/20/2012 WHITE DDS, MELISSA J 564.00 UNSPECIFIED CONSTIPATION 11/20/2012 WHITE DDS, MELISSA J 784.42 DYSPHONIA 11/20/2012 TAN DDS, MARIA LUISA 564.00 UNSPECIFIED CONSTIPATION 11/20/2012 TAN DDS, MARIA LUISA 784.42 DYSPHONIA 11/20/2012 HUSAM ORLANDO APRN T 564.00 UNSPECIFIED CONSTIPATION 11/20/2012 HUSAM ORLANDO APRN 784.42 DYSPHONIA 11/20/2012 TIMOTHY GAINESN, WOLF S 564.00 UNSPECIFIED CONSTIPATION 11/20/2012 TIMOTHY ADMIRALTY LAWYER, WOLF S 784.42 DYSPHONIA 11/20/2012 TIMOTHY ADMIRALTY LAWYER, WOLF S 564.00 UNSPECIFIED CONSTIPATION 11/20/2012 TIMOTHY ADMIRALTY LAWYER, WOLF S 784.42 DYSPHONIA 11/20/2012 CASSIE ODMINGUEZ, KADY Raymundo 564.00 UNSPECIFIED CONSTIPATION 11/20/2012 CASSIE DOMINGUEZ, KADY Raymundo 784.42 DYSPHONIA 11/20/2012 TIMOTHY ADMIRALTY LAWYER, WOLF S 564.00 UNSPECIFIED CONSTIPATION 11/20/2012 TIMOTHY ADMIRALTY LAWYER, WOLF S 784.42 DYSPHONIA 11/20/2012 TIMOTHY ADMIRALTY LAWYER, WOLF S 564.00 UNSPECIFIED CONSTIPATION 11/20/2012 TIMOTHY ADMIRALTY LAWYER, WOLF S 784.42 DYSPHONIA 11/20/2012 TAN DDS, MARIA LUISA 564.00 UNSPECIFIED CONSTIPATION 11/20/2012 TAN DDS, MARIA LUISA 784.42 DYSPHONIA 11/20/2012 MAX DDS, KATHYA D 564.00 UNSPECIFIED CONSTIPATION 11/20/2012 MAX DDS, KATHYA D 784.42 DYSPHONIA 01/03/2013 HUSAM ORLANDO APRN 465.9 UPPER RESPIRATORY INFECTION 01/03/2013 TIMOTHY ADMIRALTY LAWYER, WOLF S 465.9 UPPER RESPIRATORY INFECTION 01/03/2013 465.9 UPPER RESPIRATORY INFECTION 01/03/2013 MORAIMA NICOLE DO 465.9 UPPER RESPIRATORY INFECTION 01/03/2013 465.9 UPPER RESPIRATORY INFECTION 01/03/2013 465.9 UPPER RESPIRATORY INFECTION 01/03/2013 465.9 UPPER RESPIRATORY INFECTION 01/03/2013 465.9 UPPER RESPIRATORY INFECTION 01/03/2013 NORMA DDS, JUAREZ M 465.9 UPPER RESPIRATORY INFECTION 01/03/2013 NORMA DDS, JUAREZ M 465.9 UPPER RESPIRATORY INFECTION 01/03/2013 MORAIMA NICOLE DO 465.9 UPPER RESPIRATORY INFECTION 01/03/2013 TIMOTHY ADMIRALTY LAWYER, WOLF S 465.9 UPPER RESPIRATORY INFECTION 01/03/2013 TIMOTHY ADMIRALTY LAWYER, WOLF S 465.9 UPPER RESPIRATORY INFECTION 01/03/2013 TIMOTHY ADMIRALTY LAWYER, WOLF S 465.9 UPPER RESPIRATORY INFECTION 01/03/2013 TIMOTHY ADMIRALTY LAWYER, WOLF S 465.9 UPPER RESPIRATORY INFECTION 01/03/2013 TIMOTHY ADMIRALTY LAWYER, WOLF S 465.9 UPPER RESPIRATORY INFECTION 01/03/2013 GAGANDEEP MARTINES, MELISSA Raymundo 465.9 UPPER RESPIRATORY INFECTION 01/03/2013 BRITNEY WILCOXS, MARIA LUISA 465.9 UPPER RESPIRATORY INFECTION 01/03/2013 HUSAM ORLANDO APRN 465.9 UPPER RESPIRATORY INFECTION 01/03/2013 TIMOTHY ADMIRALTY LAWYER, WOLF S 465.9 UPPER RESPIRATORY INFECTION 01/03/2013 TIMOTHY ADMIRALTY LAWYER, WOLF S 465.9 UPPER RESPIRATORY INFECTION 01/03/2013 CASSIE DOMINGUEZ, KADY Raymundo 465.9 UPPER RESPIRATORY INFECTION 01/03/2013 TIMOTHY ADMIRALTY LAWYER, WOLF S 465.9 UPPER RESPIRATORY INFECTION 01/03/2013 TMIOTHY ADMIRALTY LAWYER, WOLF S 465.9 UPPER RESPIRATORY INFECTION 01/03/2013 [...] Open Wound Of Head Without Complication 02/03/2013 JUAREZ GREEN DDS 873.8 Other And Unspecified Open Wound Of Head Without Complication 02/03/2013 JUAREZ GREEN DDS 873.8 Other And Unspecified Open Wound Of Head Without Complication 02/03/2013 MORAIMA NICOLE DO 873.8 Other And Unspecified Open Wound Of Head Without Complication 02/03/2013 TIMOTHY ADMIRALTY LAWYER, WOLF S 873.8 Other And Unspecified Open Wound Of Head Without Complication 02/03/2013 TIMOTHY ADMIRALTY LAWYER, WOLF S 873.8 Other And Unspecified Open Wound Of Head Without Complication 02/03/2013 TIMOTHY ADMIRALTY LAWYER, WOLF S 873.8 Other And Unspecified Open Wound Of Head Without Complication 02/03/2013 TIMOTHY ADMIRALTY LAWYER, WOLF S 873.8 Other And Unspecified Open Wound Of Head Without Complication 02/03/2013 TIMOTHY ADMIRALTY LAWYER, WOLF S 873.8 Other And Unspecified Open Wound Of Head Without Complication 02/03/2013 GAGANDEEP WILCOXS, MELISSA Raymundo 873.8 Other And Unspecified Open Wound Of Head Without Complication 02/03/2013 BRITNEY WILCOXSMARIA LUISA 873.8 Other And Unspecified Open Wound Of Head Without Complication 02/03/2013 HUSAM ORLANDO APRN 873.8 Other And Unspecified Open Wound Of Head Without Complication 02/03/2013 TIMOTHY ADMIRALTY LAWYER, WOLF S 873.8 Other And Unspecified Open Wound Of Head Without Complication 02/03/2013 TIMOTHY ADMIRALTY LAWYER, WOLF S 873.8 Other And Unspecified Open Wound Of Head Without Complication 02/03/2013 CASSIE DOMINGUEZ, KADY Raymundo 873.8 Other And Unspecified Open Wound Of Head Without Complication 02/03/2013 TIMOTHY ADMIRALTY LAWYER, WOLF S 873.8 Other And Unspecified Open Wound Of Head Without Complication 02/03/2013 TIMOTHY ADMIRALTY LAWYER, WOLF S 873.8 Other And Unspecified Open [...] REMOVAL 02/10/2013 V58.32 SUTURE REMOVAL 02/10/2013 NORMA WILCOXSJUAREZ V58.32 SUTURE REMOVAL 02/10/2013 NORMA WILCOXSJUAREZ V58.32 SUTURE REMOVAL 02/10/2013 MORAIMA NICOLE DO V58.32 SUTURE REMOVAL 02/10/2013 TIMOTHY ADMIRALTY LAWYER, WOLF S V58.32 SUTURE REMOVAL 02/10/2013 TIMOTHY ADMIRALTY LAWYER, WOLF S V58.32 SUTURE REMOVAL 02/10/2013 TIMOTHY ADMIRALTY LAWYER, WOLF S V58.32 SUTURE REMOVAL 02/10/2013 TIMOTHY ADMIRALTY LAWYER, WOLF S V58.32 SUTURE REMOVAL 02/10/2013 TIMOTHY ADMIRALTY LAWYER, WOLF S V58.32 SUTURE REMOVAL 02/10/2013 GAGANDEEP MARTINES, MELISSA Raymundo V58.32 SUTURE REMOVAL 02/10/2013 BRITNEY WILCOXSMARIA LUISA V58.32 SUTURE REMOVAL 02/10/2013 HUSAM ORLANDO APRN V58.32 SUTURE REMOVAL 02/10/2013 TIMOTHY ADMIRALTY LAWYER, WOLF S V58.32 SUTURE REMOVAL 02/10/2013 TIMOTHY ADMIRALTY LAWYER, WOLF S V58.32 SUTURE REMOVAL 02/10/2013 CASSIE DOMINGUEZ, KADY Raymundo V58.32 SUTURE REMOVAL 02/10/2013 TIMOTHY ADMIRALTY LAWYER, WOLF S V58.32 SUTURE REMOVAL 02/10/2013 TIMOTHY ADMIRALTY LAWYER, WOLF S V58.32 SUTURE REMOVAL 02/10/2013 BRITNEY WILCOXS, MARIA LUISA V58.32 SUTURE REMOVAL 02/10/2013 MAX WILCOXS, KATHYA Chopra V58.32 SUTURE REMOVAL 04/03/2013 V65.49 OTHER SPECIFIED COUNSELING 04/03/2013 V76.10 BREAST CANCER SCREENING 04/03/2013 V65.49 OTHER SPECIFIED COUNSELING 04/03/2013 V76.10 BREAST CANCER SCREENING 04/03/2013 V65.49 OTHER SPECIFIED COUNSELING 04/03/2013 V76.10 BREAST CANCER SCREENING 04/03/2013 JUAREZ GREEN DDS V65.49 OTHER SPECIFIED COUNSELING 04/03/2013 JUAREZ GREEN DDS V76.10 BREAST CANCER SCREENING 04/03/2013 JUAREZ GREEN DDS V65.49 OTHER SPECIFIED COUNSELING 04/03/2013 JUAREZ GREEN DDS V76.10 BREAST CANCER SCREENING 04/03/2013 MORAIMA NICOLE DO V65.49 OTHER SPECIFIED COUNSELING 04/03/2013 MORAIMA NICOLE DO K V76.10 BREAST CANCER SCREENING 04/03/2013 TIMOTHY ADMIRALTY LAWYER, WOLF S V65.49 OTHER SPECIFIED COUNSELING 04/03/2013 TIMOTHY ADMIRALTY LAWYER, WOLF S V76.10 BREAST CANCER SCREENING 04/03/2013 TIMOTHY ADMIRALTY LAWYER, WOLF S V65.49 OTHER SPECIFIED COUNSELING 04/03/2013 TIMOTHY ADMIRALTY LAWYER, WOLF S V76.10 BREAST CANCER SCREENING 04/03/2013 TIMOTHY ADMIRALTY LAWYER, WOLF S V65.49 OTHER SPECIFIED COUNSELING 04/03/2013 TIMOTHY ADMIRALTY LAWYER, WOLF S V76.10 BREAST CANCER SCREENING 04/03/2013 TIMOTHY ADMIRALTY LAWYER, WOLF S V65.49 OTHER SPECIFIED COUNSELING 04/03/2013 TIMOTHY ADMIRALTY LAWYER, WOLF S V76.10 BREAST CANCER SCREENING 04/03/2013 TIMOTHY ADMIRALTY LAWYER, WOLF S V65.49 OTHER SPECIFIED COUNSELING 04/03/2013 TIMOTHY ADMIRALTY LAWYER, WOLF S V76.10 BREAST CANCER SCREENING 04/03/2013 GAGANDEEP DDS, MELISSA J V65.49 OTHER SPECIFIED COUNSELING 04/03/2013 WHITE DDS, MELISSA J V76.10 BREAST CANCER SCREENING 04/03/2013 TAN DDS, MARIA LUISA V65.49 OTHER SPECIFIED COUNSELING 04/03/2013 TAN DDS, MARIA LUISA V76.10 BREAST CANCER SCREENING 04/03/2013 JOHANNY ADMIRALTY LAWYERHUSAM T V65.49 OTHER SPECIFIED COUNSELING 04/03/2013 JOHANNY ADMIRALTY LAWYER, HUSAM T V76.10 BREAST CANCER SCREENING 04/03/2013 TIMOTHY ADMIRALTY LAWYER, WOLF S V65.49 OTHER SPECIFIED COUNSELING 04/03/2013 TIMOTHY ADMIRALTY LAWYER, WOLF S V76.10 BREAST CANCER SCREENING 04/03/2013 TIMOTHY ADMIRALTY LAWYER, WOFL S V65.49 OTHER SPECIFIED COUNSELING 04/03/2013 TIMOTHY ADMIRALTY LAWYER, WOLF S V76.10 BREAST CANCER SCREENING 04/03/2013 KADY MATTHEWS MD V65.49 OTHER SPECIFIED COUNSELING 04/03/2013 KADY MATTHEWS MD V76.10 BREAST CANCER SCREENING 04/03/2013 TIMOTHY ADMIRALTY LAWYER, WOLF S V65.49 OTHER SPECIFIED COUNSELING 04/03/2013 TIMOTHY ADMIRALTY LAWYER, WOLF S V76.10 BREAST CANCER SCREENING 04/03/2013 TIMOTHY ADMIRALTY LAWYER, WOLF S V65.49 OTHER SPECIFIED COUNSELING 04/03/2013 TIMOTHY ADMIRALTY LAWYER, WOLF S V76.10 BREAST CANCER SCREENING 04/03/2013 TAN DDS, MARIA LUISA V65.49 OTHER SPECIFIED COUNSELING 04/03/2013 TAN DDS, MARIA LUISA V76.10 BREAST CANCER SCREENING 04/03/2013 MAX WILCOXSKATHYA V65.49 OTHER SPECIFIED COUNSELING 04/03/2013 MAX DDS, KATHYA D V76.10 BREAST CANCER SCREENING 03/01/2014 CARITO DOMINGUEZ, BOB Pierre Ot 272.4 HYPERLIPIDEMIA NEC/NOS 03/01/2014 CARITO DOMINGUEZ, BOB Pierre Ot 311 DEPRESSIVE DISORDER NEC 03/01/2014 BOB ARZATE MD Ot 564.00 UNSPEC CONSTIPATION 10/13/2014 HUSAM ORLANDO APRN 723.1 PAIN NECK 10/13/2014 WOLF AGUIRRE APRN S 723.1 PAIN NECK 10/13/2014 WOLF AGUIRRE APRN S 723.1 PAIN NECK 10/13/2014 KADY MATTHEWS MD 723.1 PAIN NECK 10/13/2014 WOLF AGUIRRE APRN S 723.1 PAIN NECK 10/13/2014 YU AGUIRRE APRNA S 723.1 PAIN NECK 10/13/2014 BRITNEY WILCOXSMARIA LUISA 723.1 PAIN NECK 10/13/2014 MAX MARTINES, KATHYA Chopra 723.1 PAIN NECK 10/18/2014 WOLF AGUIRRE APRN S 535.50 GASTRITIS UNSPEC 10/18/2014 YU AGUIRRE APRNA S 535.50 GASTRITIS UNSPEC 10/18/2014 KADY MATTHEWS MD 535.50 GASTRITIS UNSPEC 10/18/2014 YU AGUIRRE APRNA S 535.50 GASTRITIS UNSPEC 10/18/2014 YU AGUIRRE APRNA S 535.50 GASTRITIS UNSPEC 10/18/2014 BRITNEY WILCOXS, MARIA LUISA 535.50 GASTRITIS UNSPEC 10/18/2014 MAX MARTINES, KATHYA Chopra 535.50 GASTRITIS UNSPEC 11/07/2014 KADY MATTHEWS MD Ot 272.0 PURE HYPERCHOLESTEROLEM 11/07/2014 KADY MATTHEWS MD Ot 401.9 HYPERTENSION NOS 11/07/2014 KADY MATTHEWS MD Ot 414.01 CORONARY ATHEROSCLEROSIS OF [place] CORON 11/07/2014 KADY MATTHEWS MD Ot 427.89 [...] Rdz Ot 311 DEPRESSIVE DISORDER NEC 07/27/2015 FLO COLEMAN MD Ot 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 07/27/2015 VIRGINIA DOMINGUEZ, LFO Rdz Ot 414.00 CORON ATHEROSCLER NOS TYPE VESSEL, NATIV 07/27/2015 VIRGINIA DOMINGUEZ, FLO Rdz Ot 427.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 NEC 07/27/2015 FLO COLEMAN MD Ot 530.81 ESOPHAGEAL REFLUX 07/27/2015 FLO COLEMAN MD Ot 786.59 CHEST PAIN NEC 07/27/2015 FLO COLEMAN MD Ot V15.81 HX OF PAST NONCOMPLIANCE 07/27/2015 FLO COLEMAN MD Ot V45.81 AORTOCORONARY BYPASS 08/23/2015 DEEPTI MATHUR APRN Ot V76.12 08/23/2015 CARITO DOMINGUEZ, BOB Pierre Ot V72.84 08/23/2015 WOLF AGUIRRE Ot V76.12 08/23/2015 JERMAINE JIMENES Ot 427.9 08/23/2015 JERMAINE JIMENES Ot 427.9 08/31/2015 JERMAINE JIMENES Ot 427.9 CARDIAC DYSRHYTHMIA NOS 09/27/2015 WOLF AGUIRREP Ot Z12.31 10/26/2015 DEEPTI MATHUR APRN Ot V76.12 10/26/2015 CARITO DOMINGUEZ, BOB Pierre Ot V72.84 10/26/2015 WOLF AGUIRRE OFFENDER JOB RETENTION SPECIALIST Ot V76.12 10/26/2015 WOLF AGUIRREP Ot Z12.31 02/07/2016 LEVON DOMINGUEZ, FRED Ann Ot E87.1 HYPO-OSMOLALITY AND HYPONATREMIA 02/07/2016 FRED [...] FRED DOS SANTOS MD Ot R51 05/02/2016 CASSIEKADY CAMPBELL MD Ot D62 ACUTE POSTHEMORRHAGIC ANEMIA 05/02/2016 KADY MATTHEWS MD Ot D64.9 ANEMIA, UNSPECIFIED 05/02/2016 KADY MATTHEWS MD Ot E78.5 HYPERLIPIDEMIA, UNSPECIFIED 05/02/2016 KADY MATTHEWS MD, Ot F32.9 MAJOR DEPRESSIVE DISORDER, SINGLE EPISOD 05/02/2016 KADY MATTHEWS MD Ot F41.9 ANXIETY DISORDER, UNSPECIFIED 05/02/2016 KADY MATTHEWS MD, Ot I10 ESSENTIAL (PRIMARY) HYPERTENSION 05/02/2016 KADY MATTHEWS MD, Ot I25.10 ATHSCL HEART DISEASE OF [place] CORONARY 05/02/2016 KADY MATTHEWS MD, Ot I49.3 VENTRICULAR PREMATURE DEPOLARIZATION 05/02/2016 KADY MATTHEWS MD, Ot K21.9 GASTRO-ESOPHAGEAL REFLUX DISEASE WITHOUT 05/02/2016 KADY MATTHEWS MD, Ot K59.00 CONSTIPATION, UNSPECIFIED 05/02/2016 KADY MATTHEWS MD, Ot R10.13 EPIGASTRIC PAIN 05/02/2016 KADY MATTHEWS MD, Ot S09.90XA UNSPECIFIED INJURY OF HEAD, INITIAL ENCO 05/02/2016 KADY MATTHEWS MD, Ot S72.142A DISPLACED INTERTROCHANTERIC FRACTURE OF 05/02/2016 KADY MATTHEWS MD, Ot W19.XXXA UNSPECIFIED FALL, INITIAL ENCOUNTER 05/02/2016 KADY MATTHEWS MD, Ot Y92.513 SHOP (COMMERCIAL) PLACE 05/02/2016 KADY MATTHEWS MD, Ot Z95.1 PRESENCE OF AORTOCORONARY BYPASS [...] V72.84 EXAM PRE-OPERATIVE NOS 05/04/2016 WOLF AGUIRRE OFFENDER JOB RETENTION SPECIALIST Ot V76.12 OTH SCREEN MAMMO-MALIGN NEOPLASM OF [place] 05/04/2016 WOLF AGUIRRE OFFENDER JOB RETENTION SPECIALIST Ot Z12.31 ENCNTR SCREEN MAMMOGRAM FOR MALIGNANT NE 05/04/2016 DEEPTI MATHUR ADMIRALTY LAWYER Ot V76.12 OTH SCREEN MAMMO-MALIGN NEOPLASM OF [place] 05/04/2016 CARITO DOMINGUEZ, BOB M Ot V72.84 EXAM PRE-OPERATIVE NOS 05/04/2016 WOLF AGUIRRE OFFENDER JOB RETENTION SPECIALIST Ot V76.12 OTH SCREEN MAMMO-MALIGN NEOPLASM OF [place] 05/04/2016 HAFSA AGUIRRENDA OFFENDER JOB RETENTION SPECIALIST Ot Z12.31 ENCNTR SCREEN MAMMOGRAM FOR MALIGNANT NE 05/06/2016 FRANCE NAVARRO MD E Ot D64.9 ANEMIA, UNSPECIFIED 05/06/2016 MELANIE DOMINGUEZ FRANCE E Ot F32.9 MAJOR DEPRESSIVE DISORDER, SINGLE EPISOD 05/06/2016 FRANCE NAVARRO MD E Ot 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 05/06/2016 MELANIE DOMINGUEZ FRANCE E Ot I10 ESSENTIAL (PRIMARY) HYPERTENSION 05/06/2016 MELANIE DOMINGUEZ FRANCE E Ot I25.10 ATHSCL HEART DISEASE OF [place] CORONARY 05/06/2016 MELANIE DOMINGUEZ FRANCE E Ot I49.3 VENTRICULAR PREMATURE DEPOLARIZATION 05/06/2016 MELANIE DOMINGUEZ FRANCE E Ot K21.9 GASTRO-ESOPHAGEAL REFLUX DISEASE WITHOUT 05/06/2016 MELANIE DOMINGUEZ [place] E Ot K59.00 CONSTIPATION, UNSPECIFIED 05/06/2016 MELANIE DOMINGUEZ [place] E Ot R45.1 RESTLESSNESS AND AGITATION 05/06/2016 FRANCE NAVARRO MD E Ot S09.90XD UNSPECIFIED INJURY OF HEAD, SUBSEQUENT E 05/06/2016 FRANCE NAVARRO MD E Ot S72.142D DISPL INTERTROCH FX L FEMUR, SUBS FOR CL 05/06/2016 MELANIE DOMINGUEZ [place] E Ot W19.XXXD UNSPECIFIED FALL, SUBSEQUENT ENCOUNTER 05/06/2016 MELANIE DOMINGUEZ [place] E Ot Y92.513 SHOP (COMMERCIAL) PLACE 05/06/2016 FRANCE NAVARRO MD E Ot Z95.1 PRESENCE OF AORTOCORONARY BYPASS GRAFT 05/12/2016 FRANCE NAVARRO MD Ot D64.9 ANEMIA, UNSPECIFIED 05/12/2016 FRANCE NAVARRO MD Ot F32.9 MAJOR DEPRESSIVE DISORDER, SINGLE EPISOD 05/12/2016 FRACNE NAVARRO MD Ot 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 05/12/2016 FRANCE NAVARRO MD Ot I10 ESSENTIAL (PRIMARY) HYPERTENSION 05/12/2016 FRANCE NAVARRO MD Ot I25.10 ATHSCL HEART DISEASE OF [place] CORONARY 05/12/2016 FRANCE NAVARRO MD Ot I49.3 VENTRICULAR PREMATURE DEPOLARIZATION 05/12/2016 FRANCE NAVARRO MD Ot K21.9 GASTRO-ESOPHAGEAL REFLUX DISEASE WITHOUT 05/12/2016 FRANCE NAVARRO MD Ot K59.00 CONSTIPATION, UNSPECIFIED 05/12/2016 FRANCE NAVARRO MD Ot N39.0 URINARY TRACT INFECTION, SITE NOT SPECIF 05/12/2016 FARNCE NAVARRO MD Ot R45.1 RESTLESSNESS AND AGITATION [...] PAIN 08/10/2016 MEI HILL MD Ot Z79.82 CORN PRESS OPERATOR (CURRENT) USE OF ASPIRIN 08/10/2016 MEI HILL MD Ot Z79.899 OTHER CORN PRESS OPERATOR (CURRENT) DRUG THERAPY 08/27/2016 KAREEN, DEEPTI A ADMIRALTY LAWYER Ot V76.12 OTH SCREEN MAMMO-MALIGN NEOPLASM OF [place] 08/27/2016 CARITO DOMINGUEZ, BOB Gabby Ot V72.84 EXAM PRE-OPERATIVE NOS 08/27/2016 WOLF AGUIRRE OFFENDER JOB RETENTION SPECIALIST Ot V76.12 OTH SCREEN MAMMO-MALIGN NEOPLASM OF [place] 08/27/2016 WOLF AGUIRREP Ot Z12.31 ENCNTR SCREEN MAMMOGRAM FOR MALIGNANT NE 10/17/2016 Aileen Mcneal A 296.34 10/17/2016 Aileen Mcneal A F33.3 11/05/2016 Albino Mcneali W 272.4 OTHER AND UNSPECIFIED HYPERLIPIDEMIA 11/05/2016 Albino Mcneali W 290.41 11/05/2016 Albino Mcneali W 296.34 11/05/2016 Aileen Mcneal W 338.2 CHRONIC PAIN 11/05/2016 Aileen Mcneal W 401.0 11/05/2016 Albino Mcneali W 414.01 11/05/2016 Aileen Mcneal W 564.00 CONSTIPATION, UNSPECIFIED 11/05/2016 Albino Mcneali W 781.99 11/05/2016 Albino Mcneali W 783.21 11/05/2016 Albino Mcneali W 783.7 11/05/2016 Albino Mcneali W E78.5 HYPERLIPIDEMIA, UNSPECIFIED 11/05/2016 Albino Mcneali W F01.51 11/05/2016 Albino Mcneali W F33.3 11/05/2016 Albino Mcneali W G89.29 OTHER CHRONIC PAIN 11/05/2016 Aileen Mcneal W I10 ESSENTIAL (PRIMARY) HYPERTENSION 11/05/2016 Albino Mcneali W I25.10 ATHSCL HEART DISEASE OF [place] CORONARY ARTERY W/O ANG PCTRS 11/05/2016 Albino Mcneali W K59.00 CONSTIPATION, UNSPECIFIED 11/05/2016 Aileen Mcneal W R29.6 REPEATED FALLS 11/05/2016 Albino Mcneali W R62.7 ADULT FAILURE TO THRIVE 11/05/2016 Aileen Mcneal W R63.4 ABNORMAL WEIGHT LOSS 11/05/2016 Aileen Mcneal W V05.9 NEED FOR PROPHYLACTIC VACCINATION AND INOCULATION AGAINST UNSPECIFIED SINGLE DISEASE 11/05/2016 Aileen Mcneal W Z23 ENCOUNTER FOR IMMUNIZATION 03/08/2017 VAN GILLETTE APRN Ot F41.9 ANXIETY DISORDER, UNSPECIFIED 03/08/2017 VAN GILLETTE APRN Ot I10 ESSENTIAL (PRIMARY) HYPERTENSION 03/08/2017 VAN GILLETTE APRN Ot I25.10 ATHSCL HEART DISEASE OF [place] CORONARY 03/08/2017 VAN GILLETTE APRN Ot M25.551 PAIN IN RIGHT HIP 03/08/2017 VAN GILLETTE APRN Ot M25.552 PAIN IN LEFT HIP 03/08/2017 VAN GILLETTE APRN Ot Z79.01 LONG-TERM (CURRENT) USE OF ANTICOAGULANT 03/08/2017 VAN GILLETTE APRN Ot Z79.82 LONG-TERM (CURRENT) USE OF ASPIRIN 03/08/2017 VAN GILLETTE APRN Ot Z79.899 OTHER CORN PRESS OPERATOR (CURRENT) DRUG THERAPY 03/08/2017 VAN GILLETTE APRN Ot Z91.14 PATIENT'S OTHER NONCOMPLIANCE WITH MEDIC 03/08/2017 VAN GILLETTE APRN Ot Z95.1 PRESENCE OF AORTOCORONARY BYPASS GRAFT 03/08/2017 VAN GILLETTE APRN Ot Z96.641 PRESENCE OF RIGHT ARTIFICIAL HIP JOINT 03/08/2017 Aileen Mcneal W 268.9 UNSPECIFIED VITAMIN D DEFICIENCY 03/08/2017 Aileen Mcneal W 272.4 OTHER AND UNSPECIFIED HYPERLIPIDEMIA 03/08/2017 Alieen Mcneal W 290.41 03/08/2017 Aileen Mcneal W 300.00 03/08/2017 Aileen Mcneal W 427.31 ATRIAL FIBRILLATION 03/08/2017 Aileen Mcneal W 429.2 03/08/2017 Aileen Mcneal W 530.81 03/08/2017 Aileen Mcneal W 564.09 03/08/2017 Aileen Mcneal E55.9 VITAMIN D DEFICIENCY, UNSPECIFIED 03/08/2017 Aileen Mcneal W E78.5 HYPERLIPIDEMIA, UNSPECIFIED 03/08/2017 Aileen Mcneal W F01.51 VASCULAR DEMENTIA WITH BEHAVIORAL DISTURBANCE 03/08/2017 Aileen Mcneal F41.9 ANXIETY DISORDER, UNSPECIFIED 03/08/2017 Aileen Mcneal I25.10 ATHSCL HEART DISEASE OF [place] CORONARY ARTERY W/O ANG PCTRS 03/08/2017 Fredis Aileen W I48.0 PAROXYSMAL ATRIAL FIBRILLATION 03/08/2017 Aileen Mcneal W K21.9 GASTRO-ESOPHAGEAL REFLUX DISEASE WITHOUT ESOPHAGITIS 03/08/2017 Fredis Aileen W K59.09 OTHER CONSTIPATION 03/08/2017 Mcneal Aileen W V58.61 LONG-TERM (CURRENT) USE OF ANTICOAGULANTS 03/08/2017 Aileen Mcneal W Z79.01 LONG-TERM (CURRENT) USE OF ANTICOAGULANTS 03/11/2017 VAN GILLETTE APRN Ot F41.9 ANXIETY DISORDER, UNSPECIFIED 03/11/2017 VAN GILLETTE APRN Ot I10 ESSENTIAL (PRIMARY) HYPERTENSION 03/11/2017 VAN GILLETTE APRN Ot I25.10 ATHSCL HEART DISEASE OF [place] CORONARY 03/11/2017 VAN GILLETTE APRN Ot M25.551 PAIN IN RIGHT HIP 03/11/2017 VAN GILLETTE APRN Ot M25.552 PAIN IN LEFT HIP 03/11/2017 VAN GILLETTE APRN Ot Z79.01 LONG-TERM (CURRENT) USE OF ANTICOAGULANT 03/11/2017 VAN GILLETTE APRN Ot Z79.82 CORN PRESS OPERATOR (CURRENT) USE OF ASPIRIN 03/11/2017 VAN GILLETTE APRN Ot Z79.899 OTHER LONG-TERM (CURRENT) DRUG THERAPY 03/11/2017 VAN GILLETTE APRN [...] APRN Ot I25.10 ATHSCL HEART DISEASE OF [place] CORONARY 03/11/2017 VAN GILLETTE APRN Ot M25.551 PAIN IN RIGHT HIP 03/11/2017 VAN GILLETTE APRN Ot M25.552 PAIN IN LEFT HIP 03/11/2017 VAN GILLETTE APRN Ot Z79.01 CORN PRESS OPERATOR (CURRENT) USE OF ANTICOAGULANT 03/11/2017 VAN GILLETTE APRN Ot Z79.82 CORN PRESS OPERATOR (CURRENT) USE OF ASPIRIN 03/11/2017 VAN GILLETTE APRN Ot Z79.899 OTHER LONG-TERM (CURRENT) DRUG THERAPY 03/11/2017 VAN GILLETTE APRN Ot Z91.14 PATIENT'S OTHER NONCOMPLIANCE WITH MEDIC 03/11/2017 VAN GILLETTE APRN Ot Z95.1 PRESENCE OF AORTOCORONARY BYPASS GRAFT 03/11/2017 VAN GILLETTE APRN Ot Z96.641 PRESENCE OF RIGHT ARTIFICIAL HIP JOINT 07/30/2017 MEI HILL MD Ot E78.00 PURE HYPERCHOLESTEROLEMIA, UNSPECIFIED 07/30/2017 MEI HILL MD Ot F32.9 MAJOR DEPRESSIVE DISORDER, SINGLE EPISOD 07/30/2017 MEI HILL MD Ot F41.9 ANXIETY DISORDER, UNSPECIFIED 07/30/2017 MEI HILL MD Ot I10 ESSENTIAL (PRIMARY) HYPERTENSION 07/30/2017 MEI HILL MD Ot I25.10 ATHSCL HEART DISEASE OF [place] CORONARY 07/30/2017 MEI HILL MD Ot K21.9 GASTRO-ESOPHAGEAL REFLUX DISEASE WITHOUT 07/30/2017 MEI HILL MD Ot K59.00 CONSTIPATION, UNSPECIFIED 07/30/2017 MEI HILL MD Ot M19.90 UNSPECIFIED OSTEOARTHRITIS, UNSPECIFIED 07/30/2017 MEI HILL MD Ot R10.84 GENERALIZED ABDOMINAL PAIN 07/30/2017 MEI HILL MD Ot Z79.01 CORN PRESS OPERATOR (CURRENT) USE OF ANTICOAGULANT 07/30/2017 MEI HILL MD Ot Z79.82 LONG-TERM (CURRENT) USE OF ASPIRIN 07/30/2017 MEI HILL [...] E78.00 PURE HYPERCHOLESTEROLEMIA, UNSPECIFIED 08/01/2017 MEI HILL MD Ot F32.9 MAJOR DEPRESSIVE DISORDER, SINGLE EPISOD 08/01/2017 MEI HILL MD, Ot F41.9 ANXIETY DISORDER, UNSPECIFIED 08/01/2017 MEI HILL MD Ot I10 ESSENTIAL (PRIMARY) HYPERTENSION 08/01/2017 MEI HILL MD Ot I25.10 ATHSCL HEART DISEASE OF [place] CORONARY 08/01/2017 MEI HILL MD, Ot K21.9 GASTRO-ESOPHAGEAL REFLUX DISEASE WITHOUT 08/01/2017 MEI HILL MD, Ot K59.00 CONSTIPATION, UNSPECIFIED 08/01/2017 MEI HILL MD Ot M19.90 UNSPECIFIED OSTEOARTHRITIS, UNSPECIFIED 08/01/2017 MEI HILL MD Ot R10.84 GENERALIZED ABDOMINAL PAIN 08/01/2017 MEI HILL MD Ot Z79.01 LONG-TERM (CURRENT) USE OF ANTICOAGULANT 08/01/2017 MEI HILL MD Ot Z79.82 CORN PRESS OPERATOR (CURRENT) USE OF ASPIRIN 08/01/2017 MEI HILL [...] OTH SCREEN MAMMO-MALIGN NEOPLASM OF [place] 09/13/2017 WOLF AGUIRRE Ot Z12.31 ENCNTR SCREEN MAMMOGRAM FOR MALIGNANT NE 09/16/2017 SHANDA SAINI MD Ot R10.9 UNSPECIFIED ABDOMINAL PAIN 09/16/2017 SHANDA SAINI MD Ot Z01.818 ENCOUNTER FOR OTHER PREPROCEDURAL EXAMIN 09/16/2017 SHANDA SAINI MD Ot R10.9 UNSPECIFIED ABDOMINAL PAIN 09/16/2017 SHANDA SAINI MD, Ot Z01.818 ENCOUNTER FOR OTHER PREPROCEDURAL EXAMIN 09/16/2017 SHANDA SAINI MD, Ot R10.9 UNSPECIFIED ABDOMINAL PAIN 09/16/2017 SHANDA SAINI MD, Ot Z01.818 ENCOUNTER FOR OTHER PREPROCEDURAL EXAMIN 09/18/2017 SHANDA SAINI MD, Ot F03.90 UNSPECIFIED DEMENTIA WITHOUT BEHAVIORAL 09/18/2017 SHANDA SAINI MD, Ot I25.10 ATHSCL HEART DISEASE OF [place] CORONARY 09/18/2017 SHANDA SAINI MD Ot K21.0 GASTRO-ESOPHAGEAL REFLUX DISEASE WITH ES 09/18/2017 SHANDA SAINI MD Ot K25.9 GASTRIC ULCER, UNSP ACUTE OR CHRONIC, 09/18/2017 SHANDA SAINI MD Ot K29.70 GASTRITIS, UNSPECIFIED, WITHOUT BLEEDING 09/18/2017 SHANDA SAINI MD Ot K44.9 DIAPHRAGMATIC HERNIA WITHOUT OBSTRUCTION 09/18/2017 SHANDA SAINI MD, Ot K59.00 CONSTIPATION, UNSPECIFIED 09/18/2017 SHANDA SAINI MD Ot K64.1 SECOND DEGREE HEMORRHOIDS 09/18/2017 SHANDA SAINI MD Ot R19.7 DIARRHEA, UNSPECIFIED 09/18/2017 SHANDA SAINI MD Ot Z79.82 LONG-TERM (CURRENT) USE OF ASPIRIN 09/18/2017 SHANDA SAINI MD, Ot Z79.899 OTHER LONG-TERM (CURRENT) DRUG THERAPY 09/18/2017 SHANDA SAINI MD, Ot Z95.1 PRESENCE OF AORTOCORONARY BYPASS GRAFT 09/18/2017 SHANDA SAINI MD Ot Z96.643 PRESENCE OF ARTIFICIAL HIP JOINT, BILATE 09/19/2017 SHANDA SAINI MD Ot F03.90 UNSPECIFIED DEMENTIA WITHOUT BEHAVIORAL 09/19/2017 SHANDA SAINI MD Ot I25.10 ATHSCL HEART DISEASE OF [place] CORONARY 09/19/2017 SHANDA SAINI MD Ot K21.0 GASTRO-ESOPHAGEAL REFLUX DISEASE WITH ES 09/19/2017 SHANDA SAINI MD Ot K25.9 GASTRIC ULCER, UNSP ACUTE OR CHRONIC, 09/19/2017 SHANDA SAINI MD Ot K29.70 GASTRITIS, UNSPECIFIED, WITHOUT BLEEDING 09/19/2017 SHANDA SAINI MD Ot K44.9 DIAPHRAGMATIC HERNIA WITHOUT OBSTRUCTION 09/19/2017 SHANDA SAINI MD, Ot K59.00 CONSTIPATION, UNSPECIFIED 09/19/2017 SHANDA SAINI MD, Ot K64.1 SECOND DEGREE HEMORRHOIDS 09/19/2017 SHANDA SAINI MD Ot Z79.82 CORN PRESS OPERATOR (CURRENT) USE OF ASPIRIN 09/19/2017 SHANDA SAINI MD, Ot Z79.899 OTHER CORN PRESS OPERATOR (CURRENT) DRUG THERAPY 09/19/2017 SHANDA SAINI MD Ot Z95.1 PRESENCE OF AORTOCORONARY BYPASS GRAFT 09/19/2017 SHANDA SAINI MD Ot Z96.643 PRESENCE OF ARTIFICIAL HIP JOINT, BILATE 09/25/2017 DEEPTI MATHUR ADMIRALTY LAWYER Ot V76.12 OTH SCREEN MAMMO-MALIGN NEOPLASM OF [place] 09/25/2017 CARITO DOMINGUEZ, BOB Pierre Ot V72.84 EXAM PRE-OPERATIVE NOS 09/25/2017 WOLF AGUIRRE Ot V76.12 OTH SCREEN MAMMO-MALIGN NEOPLASM OF [place] 09/25/2017 WOLF AGUIRRE Ot Z12.31 ENCNTR SCREEN MAMMOGRAM FOR MALIGNANT NE 09/27/2017 SHANDA SAINI MD Ot F03.90 UNSPECIFIED DEMENTIA WITHOUT BEHAVIORAL 09/27/2017 SHANDA SAINI MD Ot I25.10 ATHSCL HEART DISEASE OF [place] CORONARY 09/27/2017 SHANDA SAINI MD Ot K21.0 GASTRO-ESOPHAGEAL REFLUX DISEASE WITH ES 09/27/2017 SHANDA SAINI MD Ot K25.9 GASTRIC ULCER, UNSP ACUTE OR CHRONIC, 09/27/2017 SHANDA SAINI MD Ot K29.70 GASTRITIS, UNSPECIFIED, WITHOUT BLEEDING 09/27/2017 SHANDA SAINI MD Ot K44.9 DIAPHRAGMATIC HERNIA WITHOUT OBSTRUCTION 09/27/2017 SHANDA SAINI MD, Ot K59.00 CONSTIPATION, UNSPECIFIED 09/27/2017 SHANDA SAINI MD Ot K64.1 SECOND DEGREE HEMORRHOIDS 09/27/2017 SHANDA SAINI MD, Ot R19.7 DIARRHEA, UNSPECIFIED 09/27/2017 SHANDA SAINI MD, Ot Z79.82 LONG-TERM (CURRENT) USE OF ASPIRIN 09/27/2017 SHANDA SAINI MD Ot Z79.899 OTHER CORN PRESS OPERATOR (CURRENT) DRUG THERAPY 09/27/2017 SHANDA SAINI MD, Ot Z95.1 PRESENCE OF AORTOCORONARY BYPASS GRAFT 09/27/2017 SHANDA SAINI MD, Ot Z96.643 PRESENCE OF ARTIFICIAL HIP JOINT, BILATE 12/13/2017 MARILEE, HERB W 294.20 DEMENTIA, UNSPECIFIED, IN CONDITIONS CLASSIFIED ELSEWHERE WITHOUT BEHAVIORAL DISTURBANCE 12/13/2017 MARILEE HERB W F03.90 UNSPECIFIED DEMENTIA WITHOUT BEHAVIORAL DISTURBANCE 12/13/2017 MARILEE, HERB W 294.20 DEMENTIA, UNSPECIFIED, IN CONDITIONS CLASSIFIED ELSEWHERE WITHOUT BEHAVIORAL DISTURBANCE 12/13/2017 MARILEE, HERB W F03.90 UNSPECIFIED DEMENTIA WITHOUT BEHAVIORAL DISTURBANCE 12/16/2017 MARILEE, HERB W 294.20 DEMENTIA, UNSPECIFIED, IN CONDITIONS CLASSIFIED ELSEWHERE WITHOUT BEHAVIORAL DISTURBANCE 12/16/2017 MARILEE, HERB W F03.90 UNSPECIFIED DEMENTIA WITHOUT BEHAVIORAL DISTURBANCE 12/30/2017 MARILEE, HERB W 268.9 12/30/2017 HUNT, HERB W 272.4 OTHER AND UNSPECIFIED HYPERLIPIDEMIA 12/30/2017 HUNT, HERB W 290.41 12/30/2017 HUNT, HERB W 294.20 DEMENTIA, UNSPECIFIED, IN CONDITIONS CLASSIFIED ELSEWHERE WITHOUT BEHAVIORAL DISTURBANCE 12/30/2017 MARILEE HERB W 296.30 12/30/2017 MARILEE HERB A 297.1 12/30/2017 MARILEE, HERB W 300.02 12/30/2017 MARILEE, HERB W 300.82 12/30/2017 MARILEE HERB W 401.0 12/30/2017 MARILEE HERB W 414.01 CORONARY ATHEROSCLEROSIS OF [place] CORONARY ARTERY 12/30/2017 HUNT, HERB W 564.1 12/30/2017 HUNT, HERB W [...] HERB W I10 ESSENTIAL (PRIMARY) HYPERTENSION 12/30/2017 MARILEE, HERB W I25.10 ATHSCL HEART DISEASE OF [place] CORONARY ARTERY W/O ANG PCTRS 12/30/2017 MARILEE, HERB W K58.1 IRRITABLE BOWEL SYNDROME WITH CONSTIPATION 08/20/2018 DEEPTI MATHUR APRN Ot V76.12 OTH SCREEN MAMMO-MALIGN NEOPLASM OF [place] 08/20/2018 CARITO DOMINGUEZ, BOB Pierre Ot V72.84 EXAM PRE-OPERATIVE NOS 08/20/2018 WOLF AGUIRRE Ot V76.12 OTH SCREEN MAMMO-MALIGN NEOPLASM OF [place] 08/20/2018 WOLF AGUIRRE Ot Z12.31 ENCNTR SCREEN MAMMOGRAM FOR MALIGNANT NE 08/20/2018 MANUEL BOONEP Ot E78.00 PURE HYPERCHOLESTEROLEMIA, UNSPECIFIED 08/20/2018 MELY, MANUEL OFFENDER JOB RETENTION SPECIALIST Ot F32.9 MAJOR DEPRESSIVE DISORDER, SINGLE EPISOD 08/20/2018 MELY, MANUEL OFFENDER JOB RETENTION SPECIALIST Ot F41.9 ANXIETY DISORDER, UNSPECIFIED 08/20/2018 MELY, MANUEL OFFENDER JOB RETENTION SPECIALIST Ot I10 ESSENTIAL (PRIMARY) HYPERTENSION 08/20/2018 MELY, MANUEL OFFENDER JOB RETENTION SPECIALIST Ot I25.10 ATHSCL HEART DISEASE OF [place] CORONARY 08/20/2018 MELY, MANUEL OFFENDER JOB RETENTION SPECIALIST Ot K21.9 GASTRO-ESOPHAGEAL REFLUX DISEASE WITHOUT 08/20/2018 MELY, MANUEL OFFENDER JOB RETENTION SPECIALIST Ot K59.00 CONSTIPATION, UNSPECIFIED 08/20/2018 MELY, MANUEL OFFENDER JOB RETENTION SPECIALIST Ot Z79.82 LONG-TERM (CURRENT) USE OF ASPIRIN 08/20/2018 MELY, MANUEL OFFENDER JOB RETENTION SPECIALIST Ot Z82.49 FAMILY HX OF ISCHEM HEART DIS AND OTH DI 08/20/2018 MELY, MANUEL OFFENDER JOB RETENTION SPECIALIST Ot Z87.440 PERSONAL HISTORY OF URINARY (TRACT) INFE 08/20/2018 MELY, MANUEL OFFENDER JOB RETENTION SPECIALIST Ot Z88.5 ALLERGY STATUS TO NARCOTIC AGENT STATUS 08/20/2018 MELY, MANUEL OFFENDER JOB RETENTION SPECIALIST Ot Z95.1 PRESENCE OF AORTOCORONARY BYPASS GRAFT 08/20/2018 MELY, MANUEL OFFENDER JOB RETENTION SPECIALIST Ot Z96.641 PRESENCE OF RIGHT ARTIFICIAL HIP JOINT 08/22/2018 MELY, MANUEL OFFENDER JOB RETENTION SPECIALIST Ot E78.00 PURE HYPERCHOLESTEROLEMIA, UNSPECIFIED 08/22/2018 MELY, MANUEL OFFENDER JOB RETENTION SPECIALIST Ot F32.9 MAJOR DEPRESSIVE DISORDER, SINGLE EPISOD 08/22/2018 MELY, MANUEL OFFENDER JOB RETENTION SPECIALIST Ot F41.9 ANXIETY DISORDER, UNSPECIFIED 08/22/2018 MELY, MANUEL OFFENDER JOB RETENTION SPECIALIST Ot I10 ESSENTIAL (PRIMARY) HYPERTENSION 08/22/2018 MELY, MANUEL OFFENDER JOB RETENTION SPECIALIST Ot I25.10 ATHSCL HEART DISEASE OF [place] CORONARY 08/22/2018 MELY, MANUEL OFFENDER JOB RETENTION SPECIALIST Ot K21.9 GASTRO-ESOPHAGEAL REFLUX DISEASE WITHOUT 08/22/2018 MELY, MANUEL OFFENDER JOB RETENTION SPECIALIST Ot K59.00 CONSTIPATION, UNSPECIFIED 08/22/2018 MELY, MANUEL OFFENDER JOB RETENTION SPECIALIST Ot Z79.82 LONG-TERM (CURRENT) USE OF ASPIRIN 08/22/2018 MELY, MANUEL OFFENDER JOB RETENTION SPECIALIST Ot Z82.49 FAMILY HX OF ISCHEM HEART DIS AND OTH DI 08/22/2018 MELY, MANUEL OFFENDER JOB RETENTION SPECIALIST Ot Z87.440 PERSONAL HISTORY OF URINARY (TRACT) INFE 08/22/2018 MELY, MANUEL OFFENDER JOB RETENTION SPECIALIST Ot Z88.5 ALLERGY STATUS TO NARCOTIC AGENT STATUS 08/22/2018 MELY, MANUEL OFFENDER JOB RETENTION SPECIALIST Ot Z95.1 PRESENCE OF AORTOCORONARY BYPASS GRAFT 08/22/2018 MELY, MANUEL OFFENDER JOB RETENTION SPECIALIST Ot Z96.641 PRESENCE OF RIGHT ARTIFICIAL HIP JOINT 08/22/2018 MELY, MANUEL OFFENDER JOB RETENTION SPECIALIST Ot E78.00 PURE HYPERCHOLESTEROLEMIA, UNSPECIFIED 08/22/2018 MELY MANUEL OFFENDER JOB RETENTION SPECIALIST Ot F32.9 MAJOR DEPRESSIVE DISORDER, SINGLE EPISOD 08/22/2018 MELY, MANUEL OFFENDER JOB RETENTION SPECIALIST Ot F41.9 ANXIETY DISORDER, UNSPECIFIED 08/22/2018 MELY, MANUEL OFFENDER JOB RETENTION SPECIALIST Ot I10 ESSENTIAL (PRIMARY) HYPERTENSION 08/22/2018 MELY MANUEL OFFENDER JOB RETENTION SPECIALIST Ot I25.10 ATHSCL HEART DISEASE OF [place] CORONARY 08/22/2018 MELY MANEUL OFFENDER JOB RETENTION SPECIALIST Ot K21.9 GASTRO-ESOPHAGEAL REFLUX DISEASE WITHOUT 08/22/2018 MELY MANUEL OFFENDER JOB RETENTION SPECIALIST Ot K59.00 CONSTIPATION, UNSPECIFIED 08/22/2018 MELY MANUEL OFFENDER JOB RETENTION SPECIALIST Ot Z79.82 LONG-TERM (CURRENT) USE OF ASPIRIN 08/22/2018 MELY, MANUEL OFFENDER JOB RETENTION SPECIALIST Ot Z82.49 FAMILY HX OF ISCHEM HEART DIS AND OTH DI 08/22/2018 MELY, MANUEL OFFENDER JOB RETENTION SPECIALIST Ot Z87.440 PERSONAL HISTORY OF URINARY (TRACT) INFE 08/22/2018 MELY MANUEL OFFENDER JOB RETENTION SPECIALIST Ot Z88.5 ALLERGY STATUS TO NARCOTIC AGENT STATUS 08/22/2018 MELY, MANUEL OFFENDER JOB RETENTION SPECIALIST Ot Z95.1 PRESENCE OF AORTOCORONARY BYPASS GRAFT 08/22/2018 MELY, MANUEL OFFENDER JOB RETENTION SPECIALIST Ot Z96.641 PRESENCE OF RIGHT ARTIFICIAL HIP JOINT 02/09/2019 CARITO DOMINGUEZ, BOB Pierre Ot V72.84 EXAM PRE-OPERATIVE NOS 02/09/2019 WOLF AGUIRREP Ot V76.12 OTH SCREEN MAMMO-MALIGN NEOPLASM OF HEYDI 02/09/2019 WOLF AGUIRRE OFFENDER JOB RETENTION SPECIALIST Ot Z12.31 ENCNTR SCREEN MAMMOGRAM FOR MALIGNANT NE 02/09/2019 CARITO DOMINGUEZ, BOB Pierre Ot V72.84 EXAM PRE-OPERATIVE NOS 02/09/2019 WOLF AGUIRRE OFFENDER JOB RETENTION SPECIALIST Ot V76.12 OTH SCREEN MAMMO-MALIGN NEOPLASM OF HEYDI 02/09/2019 WOLF AGUIRRE OFFENDER JOB RETENTION SPECIALIST Ot Z12.31 ENCNTR SCREEN MAMMOGRAM FOR MALIGNANT NE 02/11/2019 SERGIO DOMINGUEZ, MEI Chopra Ot E78.00 PURE HYPERCHOLESTEROLEMIA, UNSPECIFIED 02/11/2019 SERGIO DOMINGUEZ, MEI Chopra Ot F32.9 MAJOR DEPRESSIVE DISORDER, SINGLE EPISOD 02/11/2019 MEI HILL MD Ot F41.9 ANXIETY DISORDER, UNSPECIFIED 02/11/2019 MEI HILL MD Ot I10 ESSENTIAL (PRIMARY) HYPERTENSION 02/11/2019 MEI HILL MD, Ot I25.10 ATHSCL HEART DISEASE OF [place] CORONARY 02/11/2019 MEI HILL MD Ot K21.9 GASTRO-ESOPHAGEAL REFLUX DISEASE WITHOUT 02/11/2019 MEI HILL MD Ot R06.00 DYSPNEA, UNSPECIFIED 02/11/2019 MEI HILL MD Ot R06.02 SHORTNESS OF BREATH 02/11/2019 MEI HILL MD Ot Z79.82 LONG-TERM (CURRENT) USE OF ASPIRIN 02/11/2019 MEI HILL MD Ot Z82.49 FAMILY HX OF ISCHEM HEART DIS AND OTH DI 02/11/2019 MEI HILL MD, Ot Z87.440 PERSONAL HISTORY OF URINARY (TRACT) INFE 02/11/2019 MEI HILL MD Ot Z88.5 ALLERGY STATUS TO NARCOTIC AGENT STATUS 02/11/2019 MEI HILL MD Ot Z95.1 PRESENCE OF AORTOCORONARY BYPASS GRAFT 02/11/2019 MEI HILL MD Ot Z96.641 PRESENCE OF RIGHT ARTIFICIAL HIP JOINT 02/11/2019 MEI HILL MD Ot Z98.890 OTHER SPECIFIED POSTPROCEDURAL STATES Procedures Code Description [place] [address] ROUTINE VENIPUNCTURE 11/20/2012 70091 UA LONG DIP 11/20/2012 55934 CMP 11/21/2012 5307538 GFR CALC (RESULT ONLY) 11/21/2012 09180 CBC 11/21/2012 99337 XRAY ABDOMEN, 1 VIEW (KUB) 11/30/2012 42796 ROUTINE VENIPUNCTURE 01/13/2013 10587 LIPID PANEL 01/13/2013 35769 LACERATION REPAIR (SPECIFY LOCATION) 02/03/2013 18938 MAMMOGRAM, SCREENING 04/03/2013 89146 UA W/ CULTURE IF INDICATED 04/03/2013 G0008 FLU ADMINISTRATION ( MEDICARE ONLY) 01/20/2014 91871 ROUTINE VENIPUNCTURE 02/05/2014 46475 CBC 02/05/2014 [id number] GFR CALC (RESULT ONLY) 02/05/2014 72109 CMP 02/05/2014 89937 LIPID PANEL 02/05/2014 73136 TSH 02/05/2014 02430 KUB 02/23/2014 25369 MAMMOGRAM, SCREENING 04/08/2014 72417 OXIMETRY 10/18/2014 21129 ROUTINE VENIPUNCTURE 02/14/2015 40475 CBC 02/14/2015 [id number] GFR CALC (RESULT ONLY) 02/14/2015 94814 CMP 02/14/2015 83658 LIPID PANEL 02/14/2015 [id number] REPOSITION LEFT UPPER FEMUR WITH INTRAME 04/28/2016 [...] 0.0 10*3/uL 0.0-0.1 Comprehensive metabolic panel - 02/11/19 14:07 Serum or plasma sodium measurement (moles/volume) 113 mmol/L 135-145 Serum or plasma potassium measurement (moles/volume) 4.2 mmol/L 3.6-5.0 Serum or plasma chloride measurement (moles/volume) 82 mmol/L 98-107 Carbon dioxide 24 mmol/L 21-32 Serum or plasma anion gap determination (moles/volume) 7 mmol/L 5-14 Serum or plasma urea nitrogen measurement (mass/volume) 10 mg/dL 7-18 Serum or plasma creatinine measurement (mass/volume) 0.62 mg/dL 0.60-1.30 Serum or plasma urea nitrogen/creatinine mass ratio 16 NRG Serum or plasma creatinine measurement with calculation of estimated glomerular filtration rate > NRG Serum or plasma glucose measurement (mass/volume) 120 mg/dL 70-105 Serum or plasma calcium measurement (mass/volume) 8.4 mg/dL 8.5-10.1 Serum or plasma total bilirubin measurement (mass/volume) 0.7 mg/dL 0.1-1.0 Serum or plasma alkaline phosphatase measurement (enzymatic activity/volume) 93 U/L 40-136 Serum or plasma aspartate aminotransferase measurement (enzymatic activity/ volume) 24 U/L 5-34 Serum or plasma alanine aminotransferase measurement (enzymatic activity/volume ) 10 U/L 0-55 Serum or plasma protein measurement (mass/volume) 6.4 g/dL 6.4-8.2 Serum or plasma albumin measurement (mass/volume) 3.6 g/dL 3.2-4.5 CALCIUM CORRECTED 8.7 mg/dL 8.5-10.1 Serum or plasma C reactive protein measurement (mass/volume) - 02/11/19 14:07 Serum or plasma C reactive protein measurement (mass/volume) 6.00 mg /dL 0.00-0.50 Blood manual differential performed detection - 02/11/19 14:07 Blood monocytes/100 leukocytes 6 % NRG Manual blood segmented neutrophils/100 leukocytes 84 % NRG Blood band neutrophils/100 leukocytes 2 % NRG Manual blood lymphocytes/100 leukocytes 8 % NRG Manual eosinophils/100 leukocytes in nose 0 % NRG Manual blood basophils/100 leukocytes 0 % NRG Blood erythrocyte morphology finding identification NORMAL NRG Serum or plasma lithium measurement (moles/volume) - 02/11/19 14:07 BNP level 932.8 pg/mL <100.0 Encounters ACCT No. Visit Date/Time Discharge Status Pt. Type Provider Facility Loc./Unit Complaint [id number] 03/25/2015 15:23:00 03/25/2015 23:59:59 CLS Outpatient KATHYA SANTANA DDS [id number] 03/03/2015 16:04:00 03/03/2015 23:59:59 CLS Outpatient TAN MARIA LUISA MARTINES [id number] 02/14/2015 11:40:00 02/14/2015 23:59:59 CLS Outpatient WOLF AGUIRRE APRN S [id number] 01/03/2015 14:48:00 01/03/2015 23:59:59 CLS Outpatient TIMOTHY ADMIRALTY LAWYERHAFSAWOLF S [id number] 11/28/2014 08:23:00 11/28/2014 23:59:59 CLS Outpatient KADY MATTHEWS MD [id number] 11/08/2014 00:00:00 11/08/2014 23:59:59 CLS Outpatient TIMOTHY ADMIRALTY LAWYERHAFSAWOLF S [id number] 10/18/2014 14:56:00 10/18/2014 23:59:59 CLS Outpatient TIMOTHY ADMIRALTY LAWYERHAFSAWOLF S [id number] 10/13/2014 17:48:00 10/13/2014 23:59:59 CLS Outpatient JOHANNY HUSAM KAN Isabel [id number] 07/29/2014 00:00:00 07/29/2014 23:59:59 CLS Outpatient TANMARIA LUISA FRASER DDS [id number] 05/17/2014 15:12:00 05/17/2014 23:59:59 CLS Outpatient GAGANDEEP MARTINES MELISSA Raymundo [id number] 04/08/2014 00:00:00 04/08/2014 23:59:59 CLS Outpatient TIMOTHY GAINESNHAFSAWOLF S [id number] 02/23/2014 14:07:00 02/23/2014 23:59:59 CLS Outpatient TIMOTHY ADMIRALTY LAWYERHAFSAWOLF S [id number] 02/23/2014 14:07:00 02/23/2014 23:59:59 CLS Outpatient TIMOTHY ADMIRALTY LAWYERHAFSAWOLF S [id number] 02/05/2014 11:39:00 02/05/2014 23:59:59 CLS Outpatient TIMOTHY ADMIRALTY LAWYERHAFSAWOLF S [id number] 01/25/2014 14:13:00 01/25/2014 23:59:59 CLS Outpatient TIMOTHY ADMIRALTY LAWYERHAFSAWOLF S [id number] 01/20/2014 13:07:00 01/20/2014 23:59:59 CLS Outpatient MORAIMA NICOLE DO [id number] 10/07/2013 15:08:00 10/07/2013 23:59:59 CLS Outpatient JUAREZ GREEN DDS [id number] 09/07/2013 09:10:00 09/07/2013 23:59:59 CLS Outpatient JUAREZ GREEN DDS [id number] 02/10/2013 17:22:00 02/10/2013 23:59:59 CLS Outpatient MORAIMA NICOLE DO [id number] 02/03/2013 17:51:00 02/03/2013 23:59:59 CLS Outpatient [id number] 01/13/2013 10:37:00 01/13/2013 23:59:59 CLS Outpatient TIMOTHY LUCIUS WOLF Hoff [id number] 01/03/2013 14:22:00 01/03/2013 23:59:59 CLS Outpatient JOHANNY KAN HUSAM Hall [id number] 11/21/2012 13:05:00 11/21/2012 23:59:59 CLS Outpatient LJ CONRADKAELA [id number] 11/11/2012 16:00:00 11/11/2012 23:59:59 CLS Outpatient [id number] 09/24/2012 15:10:00 09/24/2012 23:59:59 CLS Outpatient [id number] 06/23/2013 11:06:00 Document Registration [id number] 04/03/2013 15:23:00 Document Registration [id number] 04/03/2013 15:23:00 Document Registration [id number] 03/31/2013 15:12:00 Document Registration [id number] 02/09/2019 02:06:00 02/09/2019 05:32:00 DIS Outpatient MEI HILL MD [facility] ER SOA [id number] 08/20/2018 12:29:00 08/20/2018 15:16:00 DIS Emergency MELY, MANUEL OFFENDER JOB RETENTION SPECIALIST [facility] ER ABD PAIN [id number] 09/18/2017 11:13:00 09/18/2017 14:45:00 DIS Outpatient SHANDA SAINI MD [facility] ENDO ABDOMINAL PAIN [id number] 09/16/2017 05:57:00 09/16/2017 15:00:00 DIS Outpatient SHANDA SAINI MD [facility] PREOP ABD PAIN [id number] 07/30/2017 17:15:00 07/30/2017 20:55:00 DIS Emergency MEI HILL MD [facility] ER CONSTIPATION [id number] 03/08/2017 15:00:00 03/08/2017 19:15:00 DIS Emergency VAN GILLETTE APRN [facility] ER BOTH HIP PAIN [id number] 08/10/2016 03:53:00 08/10/2016 07:46:00 DIS Emergency SERGIO DOMINGUEZ, MEI Chopra [facility] ER NAUSEA,ABD PAIN,WEAK PULSE [id number] 05/02/2016 11:11:00 05/12/2016 14:15:00 DIS Inpatient MELANIE DOMINGUEZ, FRANCE Henson [facility] IRF HIP FRACTURE [id number] 02/06/2016 09:53:00 02/07/2016 15:43:00 DIS Inpatient LEVON DOMINGUEZ, FERD Ann [facility] ICU CHEST PAIN DIARRHEA DEHYDRATION [id number] 09/05/2015 15:56:00 09/05/2015 23:59:59 CLS Outpatient WOLF AGUIRRE [facility] RAD SCREENING [id number] 07/27/2015 15:47:00 08/31/2015 00:01:00 DIS Outpatient JERMAINE JIMENES [facility] CARD BRADYCARDIA [id number] 07/25/2015 21:35:00 07/27/2015 16:04:00 DIS Inpatient FLO COLEMAN MD [facility] ICU CHEST PAIN [id number] 05/18/2015 15:00:00 05/18/2015 23:59:59 CLS Preadmit WOLF AGUIRRE [facility] RAD [id number] 11/06/2014 01:17:00 11/07/2014 15:42:00 DIS Inpatient KADY MATTHEWS MD [facility] CSD SYMPTOMATIC BRADYCARDIA,N /V,ABD PAIN,COLITIS [id number] 05/04/2014 11:32:00 05/04/2014 23:59:59 CLS Outpatient WOLF AGUIRRE [facility] RAD SCREENING [id number] 03/01/2014 08:35:00 03/01/2014 11:15:00 DIS Outpatient BOB ARZATE MD [facility] SDC CONSTIPATION [id number] 02/25/2014 07:26:00 02/25/2014 23:59:59 CLS Outpatient BOB ARZATE MD [facility] PREOP CONSTIPATION [id number] 04/09/2013 11:14:00 04/09/2013 23:59:59 CLS Outpatient KAREEN, DEEPTIPB Ann APRN [facility] RAD SCREENING [id number] 02/11/2019 17:03:00 ACT Inpatient AILEEN MCNEAL DO [facility] 4TH PNEUMONIA;HYPONATREMIA;PLEURAL EFFUSIONS [id number] 04/27/2016 18:50:00 ACT Inpatient KADY MATTHEWS MD [facility] 4TH INTERTROCHANTERIC HIP FX [id number] 12/13/2017 09:11:00 Document Registration [id number] 09/30/2016 07:05:00 Document Registration [id number] 12/13/2017 09:11:00 12/30/2017 09:17:00 DIS Inpatient [facility] [id number] 03/08/2017 23:44:00 03/27/2017 12:08:00 DIS Inpatient [facility] [id number] 10/17/2016 15:00:00 11/05/2016 13:00:00 DIS Inpatient [facility] [id number] 10/19/2016 15:58:44 Document Registration [id number] 12/18/2018 09:40:00 12/18/2018 23:59:59 CLS Outpatient WOLF AGUIRRE APRN [facility] [id number] 08/01/2016 18:05:00 Document Registration [id number] 09/06/2015 07:36:48 ACT Document Registration [id number] 10/02/2016 05:05:00 Document Registration [id number] 09/13/2016 18:05:00 Document Registration
[2019-02-11] MEDS: ACETAMINOPHEN 500 MG TAB (TYLENOL) PO PRN (20:01)
[2019-02-11] MEDS ORDERED: DOCUSATE SODIUM 100 MG (COLACE) CAP PO PRN (20:15)
[2019-02-11] MEDS ORDERED: fentaNYL INJECTION 100 MCG/2 ML AMP IVP PRN (20:15)
[2019-02-11] MEDS ORDERED: CALCIUM CARBONATE 500 MG (TUMS) TAB.CHEW PO PRN (20:15)
[2019-02-11] MEDS ORDERED: ACETAMINOPHEN 500 MG TAB (TYLENOL) PO PRN (20:15)
[2019-02-11] MEDS ORDERED: ALPRAZolam 0.25 MG (XANAX) TAB PO PRN (20:15)
[2019-02-11] MEDS ORDERED: diphenhydrAMINE 25 MG TAB (BENADRYL) PO PRN (20:15)
[2019-02-11] MEDS ORDERED: ONDANSETRON 4 MG/2 ML (SDV) Z0FRAN IVP PRN (20:15)
--- NOTE | 2019-02-11 20:30 | Consultation-Cardiology ---
HPI-Cardiology Cardiology Consultation: Date of Consultation 02/11/19 Date of Admission Attending Physician Jazlyn Mcneal DO Admitting Physician [facility] Consulting Physician Gabby HENRY MD HPI: Time Seen by a Provider: 17:00 Chief Complaint: Fall This is a 79-year-old lady with previous history of CAD/CABG in 2005. She followed Dr. Bethea previously. She presented to the ER after she fell from her bed and injured her face. She denies loss of consciousness or near syncope. She also has complains of shortness of breath. Her oxygen saturation is borderline low. She was found to have bilateral pleural effusions with infiltrate, leukocytosis and significant hyponatremia. BNP is also elevated with normal kidney function. The patient denied any significant chest pain, palpitations. She is unclear about previous history of atrial fibrillation and is not on any oral antiplatelet medication. Review of Systems-Cardiology Review of Systems Constitutional: As described under HPI; No As described under HPI, No no symptoms reported, No chills, No fever, No lightheadedness Eyes: No As described under HPI, No no symptoms reported, No blindness, No blurred vision, No contact lenses, No drainage, No decreased acuity, No foreign body sensation, No pain, No vision change Ears/Nose/Throat: No As described under HPI, No no symptoms reported, No chronic hearing loss, No ear discharge, No ear pain, No nasal drainage, No ulcerations Respiratory: No no symptoms reported; As described under HPI; No As described under HPI, No cough, No orthopnea; shortness of breath; No SOB with excertion Cardiovascular: No no symptoms reported; As described under HPI; No As described under HPI, No chest pain, No edema, No irregular heart rate, No lightheadedness, No palpitations Gastrointestinal: No no symptoms reported, No As described under HPI, No abdomen distended, No abdominal pain, No blood streaked bowels, No constipation , No diarrhea, No nausea, No vomiting, No stool coloration changes Genitourinary: No As described under HPI, No burning, No dysuria, No discharge , No frequency, No flank pain, No hematuria, No urgency : Yes : No Skin: No rash, No skin related problems, No ulcerations Psychiatric/Neurological: No anxiety, No depression, No seizure, No focal weakness, No syncope Hematologic: No bleeding abnormalities SEG-Gjicwu-Pzijki Hx Patient Social History Alcohol Use: Denies Use Recreational Drug Use: No Smoking Status: Never a Smoker Recent Foreign Travel: No Recent Infectious Disease Expo: No Physical Abuse Screen: No Sexual Abuse: No Immunizations Up To Date Tetanus Booster (TDap): Unknown Date of Pneumonia Vaccine: April 01, 2009 Date of Influenza Vaccine: Sep 01, 2018 Past Medical History PMH As described under Assessment. Family Medical History Family History: Cardiovascular disease 19 MOTHER Diabetes mellitus G8 BROTHER Hypercholesterolemia 19 FATHER Allergies and Home Medications Allergies Coded Allergies: clindamycin (Unverified Allergy, Unknown, 02/11/19) morphine (Verified Allergy, Unknown, 02/11/19) can take hydrocodone per pt Home Medications Aspirin 81 Mg Tablet.dr, 81 MG PO DAILY, (Reported) Citalopram Hydrobromide 10 Mg Tablet, 10 MG PO DAILY, (Reported) Clonazepam 0.5 Mg Tablet, 0.5 MG PO HS, (Reported) L.acidoph & Paracasei,B.lactis 1 Each Capsule, 1 EACH PO DAILY, (Reported) Naproxen 500 Mg Tablet, 500 MG PO BID, (Reported) Olanzapine 2.5 Mg Tablet, 1.25 MG PO BID, (Reported) Pantoprazole Sodium 40 Mg Tablet.dr, 40 MG PO DAILY Prescribed by: SHANDA SAINI on 09/18/17 1408 Polyethylene Glycol 3350 17 Gm Powd.pack, 17 GM PO BID, (Reported) Rivastigmine 4.6 Mg Patch, 4.6 MG TD DAILY, (Reported) Sucralfate 1 Gm Tablet, 1 GM PO QID Prescribed by: SHANDA SAINI on 09/18/17 1408 Patient Home Medication List Home Medication List Reviewed: Yes Physical Exam-Cardiology Physical Exam Vital Signs/I&O 02/11/19 02/11/19 02/11/19 02/11/19 13:31 17:48 18:00 18:00 Temp 97.3 98.4 98.4 Pulse 75 73 68 68 Resp 21 20 18 18 B/P (MAP) 122/88 (99) 157/77 (103) 141/64 (89) 141/64 Pulse Ox 98 98 98 98 O2 Delivery Nasal Cannula Nasal Cannula Nasal Cannula Nasal Cannula O2 Flow Rate 3.00 3.00 3.00 3.00 02/11/19 02/11/19 18:43 19:14 Pulse 73 O2 Delivery Nasal Cannula O2 Flow Rate 3.00 Capillary Refill : Less Than 3 Seconds Constitutional: appears stated age, AAO x 3; No apparent distress; well- developed, well-nourished HEENT: PERRL, other (Injury to left eye brow); No discharge; hearing is well preserved, oral hygience is good; No ulceration, No xanthelasmas are seen Neck: No carotid bruit; carotid pulses are 2 + bilaterally Respiratory: No accessory muscle use, No respiratory distress, No chest tender , No chest expansion is symmetric; chest is bilaterally symmetric; No lungs clear to percussion; lungs clear to auscultation; No crackles, No rhonchi, No rales, No stridor, No wheezing, No pleural rub, No other Cardiovascular: regular rate-rhythm; No irregularly irregular, No extra beats, No parasternal heave is noted, No JVD, No edema, No bradycardia, No tachycardia , No point of maximal impulse, No cardiac thrills are palpable; S1 and S2; No gallop/S3, No gallop/S4, No diastolic murmur, No systolic murmur, No friction rub, No click, No other Gastrointestinal: No tender, No soft, No round, No distended, No pulsatile mass , No organomegaly, No guarding, No rebound, No tenderness, No hernia, No mass, No audible bowel sounds, No abnormal bowel sounds, No abdominal bruits, No spleenomegaly, No other Rectal: deferred Extremities: non-tender, normal inspection; No clubbing, No cyanosis, No significant edema Neurologic/Psychiatric: no motor/sensory deficits, alert, normal mood/affect, oriented x 3, power is 5/5 both on sides Skin: No rash, No ulcerations Data Review Labs Laboratory Tests 02/11/19 14:00: Urine Color YELLOW, Urine Clarity SLIGHTLY CLOUDY, Urine pH 7, Urine Specific [place] 1.015L, Urine Protein 1+H, Urine Glucose (UA) NEGATIVE, Urine Ketones 1+ H, Urine Nitrite NEGATIVE, Urine Bilirubin NEGATIVE, Urine Urobilinogen NORMAL, Urine Leukocyte Esterase NEGATIVE, Urine RBC (Auto) NEGATIVE, Urine RBC RARE, Urine WBC NONE, Urine Squamous Epithelial Cells RARE, Urine Crystals NONE, Urine Bacteria , Urine Casts PRESENT, Urine Hyaline Casts RARE, Urine Mucus SMALLH, Urine Culture Indicated NO 02/11/19 14:07: White Blood Count 15.7H, Red Blood Count 3.83L, Hemoglobin 11.2L, Hematocrit 31L , Mean Corpuscular Volume 82, Mean Corpuscular Hemoglobin 29, Mean Corpuscular Hemoglobin Concent 36, Red Cell Distribution Width 13.2, Platelet Count 292, Mean Platelet Volume 10.0, Neutrophils (%) (Auto) 85H, Lymphocytes (%) (Auto) 5L , Monocytes (%) (Auto) 11, Eosinophils (%) (Auto) 0, Basophils (%) (Auto) 0, Neutrophils # (Auto) 13.3H, Lymphocytes # (Auto) 0.7L, Monocytes # (Auto) 1.7H, Eosinophils # (Auto) 0.0, Basophils # (Auto) 0.0, Neutrophils % (Manual) 84, Lymphocytes % (Manual) 8, Monocytes % (Manual) 6, Eosinophils % (Manual) 0, Basophils % (Manual) 0, Band Neutrophils 2, Blood Morphology Comment NORMAL, Sodium Level 113*L, Potassium Level 4.2, Chloride Level 82L, Carbon Dioxide Level 24, Anion Gap 7, Blood Urea Nitrogen 10, Creatinine 0.62, Estimat Glomerular Filtration Rate > 60, BUN/Creatinine Ratio 16, Glucose Level 120H, Calcium Level 8.4L, Corrected Calcium 8.7, Total Bilirubin 0.7, Aspartate Amino Transf (AST/SGOT) 24, Alanine Aminotransferase (ALT/SGPT) 10, Alkaline Phosphatase 93, C-Reactive Protein High Sensitivity 6.00H, B-Type Natriuretic Peptide 932.8H, Total Protein 6.4, Albumin 3.6 ECG Impression ECG Initial ECG Rhythm: Normal Sinus, PAC A/P-Cardiology Assessment/Admission Diagnosis Pneumonia, Hypoxia, Acute mild congestive heart failure, CAD, Hyponatremia, Anemia, Fall Plan Pneumonia, IV antibiotics. Defer to primary team and Dr Reid. Hypoxia, likely due to pneumonia and CHF. Acute mild congestive heart failure, elevated BNP with normal kidney function. Agree with one dose of Lasix 20 mg IV. Recommend echocardiogram. CAD, continue aspirin. Serial troponin. Hyponatremia, fluid restriction. Anemia, Fall, no syncope. Thank you for your consultation. Please call me if you have any questions. Fantasma Henry MD, FACP, FACC, FSCAI, FHRS, CCDS Interventional Cardiology Cardiac Electrophysiology Vascular Medicine and Endovascular Interventions Clinical Quality Measures DVT/VTE Risk/Contraindication: Risk Factor Score Per Nursin RFS Level Per Nursing on Admit: 3=High Gabby HENRY MD Feb 11, 2019 20:30
[2019-02-11 20:58] VITALS: BP 149/67
[2019-02-11] MEDS: POLYETHYLENE GLYCOL 17 GM (MIRALAX) PACK PO SCH (21:20)
[2019-02-11] MEDS: NS IV 1000 ML 1,000 ML IV SCH (22:05)
[2019-02-11] MEDS: PIPERACILLIN/TAZO 4.5 GM/NS 100 ML IV SCH ×2 (23:04)
[2019-02-11] MEDS ORDERED: RT-ALBUTEROL/IPRATROPIUM 3 ML (DUONEB) VIAL INH PRN (23:15)
[2019-02-12] VITALS (7 sets, daily range): BP systolic 114–162; BP diastolic 58–78
[2019-02-12] MEDS: RT-ALBUTEROL/IPRATROPIUM 3 ML (DUONEB) VIAL INH SCH ×4 (07:20→19:22)
[2019-02-12] MEDS: NS IV 1000 ML 1,000 ML IV SCH (07:35)
[2019-02-12] MEDS: PIPERACILLIN/TAZO 4.5 GM/NS 100 ML IV SCH ×6 (07:35→22:43)
[2019-02-12] MEDS: POLYETHYLENE GLYCOL 17 GM (MIRALAX) PACK PO SCH ×2 (07:39→20:43)
[2019-02-12] MEDS ORDERED: MAGN400O7 PO (08:34)
[2019-02-12] MEDS ORDERED: DESO60CR TP (08:34)
[2019-02-12] MEDS ORDERED: GUAI-613 PO (08:34)
[2019-02-12] MEDS ORDERED: RIVA1PAT12 TD (08:34)
[2019-02-12] MEDS ORDERED: FOLI1TAB24 PO (08:34)
[2019-02-12] MEDS ORDERED: RANI150T11 PO (08:34)
[2019-02-12] MEDS ORDERED: MIRT15TA6 PO (08:34)
[2019-02-12] MEDS ORDERED: HYPR15DR6 OU (08:34)
[2019-02-12] MEDS ORDERED: PRAV20TA3 PO (08:34)
[2019-02-12] MEDS ORDERED: MELA3TAB PO (08:34)
[2019-02-12] MEDS ORDERED: CHOL10003 PO (08:34)
[2019-02-12] MEDS ORDERED: ACET-2267 PO (08:34)
[2019-02-12] MEDS ORDERED: RISP1TAB3 PO (08:34)
[2019-02-12] MEDS ORDERED: DULO60CA58 PO (08:34)
--- NOTE | 2019-02-12 08:36 | NUR ---
UPDATED MED REC WITH ORDER SUMMARY REPORT FROM [facility]
[2019-02-12 08:59] LABS: HEMOGLOBIN 11.1 G/DL (11.5-16.0); MEAN PLATELET VOLUME 10.6 FL (7.4-10.4); RED CELL DISTRIBUTION WIDTH 13.2 % (10.0-14.5); WHITE BLOOD COUNT 7.5 10^3/uL (4.3-11.0)
[2019-02-12 09:17] LABS: ALANINE AMINOTRANSFERASE 8 U/L (0-55); ALBUMIN 3.4 GM/DL (3.2-4.5); ALKALINE PHOSPHATASE 85 U/L (40-136); BILIRUBIN,TOTAL 0.6 MG/DL (0.1-1.0); BUN/CREATININE RATIO 11; CALCIUM 8.3 MG/DL (8.5-10.1); CARBON DIOXIDE 24 MMOL/L (21-32); CHLORIDE 87 MMOL/L (98-107); CREATININE SERUM 0.65 MG/DL (0.60-1.30); GFR ESTIMATED > 60; GLUCOSE 95 MG/DL (70-105); MAGNESIUM 1.9 MG/DL (1.8-2.4); PHOSPHORUS 2.7 MG/DL (2.3-4.7); POTASSIUM 3.3 MMOL/L (3.6-5.0); TOTAL PROTEIN 6.1 GM/DL (6.4-8.2)
[2019-02-12 09:22] LABS: SODIUM 120 MMOL/L (135-145)
[2019-02-12] MEDS: KCL 20 MEQ TAB (K-DUR) PO SCH ×2 (09:27→14:05)
[2019-02-12] MEDS: FUROSEMIDE 40 MG/4 ML INJ (LASIX) IVP SCH (09:27)
[2019-02-12] MEDS: ACETAMINOPHEN 500 MG TAB (TYLENOL) PO PRN (09:29)
--- NOTE | 2019-02-12 09:48 | History & Physical-Hospitalist ---
History of Present Illness HPI/Chief Complaint CC: Fall with severe hyponatremia HPI: This is a 79-year-old white female assisted patient of [facility] who has a long history of multiple medical problems including bypass surgery and hip fracture 2 years ago who presented to the ER with weakness and falls was found to have severe hyponatremia of 113 and evidence of pneumonia in addition to volume overload and congestive heart failure with elevated BNP. Due to those factors [facility] placed on fluid restriction of 800 mL a day initiated IV fluids and sodium level has come up to 120 today. She is DO NOT RESUSCITATE and I will be maintained. Cardiology and pulmonology have graciously provided their expertise in this very complex patient. She has been able to ambulate around we will discontinue the catheter today and maintain fluid restriction and hep lock IV fluid. Checked meds and labs. Daughter is at the bedside. Source: patient Exam Limitations: no limitations Date Seen 02/12/19 Time Seen by a Provider: 10:00 Attending Physician Jazlyn Mcneal DO [facility] – [place], [place],[facility] Referring Physician Date of Admission Feb 11, 2019 at 17:03 Home Medications & Allergies Home Medications Reviewed patient Home Medication Reconciliation performed by pharmacy medication reconciliations metal technician and/or nursing. Patients Allergies have been reviewed. Allergies Allergies Coded Allergies clindamycin (Unverified Allergy, Unknown, 02/11/19) morphine (Verified Allergy, Unknown, 02/11/19) can take hydrocodone per pt Past Ywnxgcf-Wmlync-Utkkaj Hx Past Med/Social Hx: Reviewed Nursing Past Med/Soc Hx, Reviewed and Corrections made Patient Social History Marrital Status: single Employed/Student: retired Alcohol Use: Denies Use Recreational Drug Use: No Smoking Status: Never a Smoker Physical Abuse Screen: No Sexual Abuse: No Recent Foreign Travel: No Contact w/other who traveled: No Recent Hopitalizations: Yes (anemia-unsure of date) Recent Infectious Disease Expo: No Immunizations Up To Date Tetanus Booster (TDap): Unknown Date of Pneumonia Vaccine: April 01, 2009 Date of Influenza Vaccine: Sep 01, 2018 Seasonal Allergies Seasonal Allergies: No Past Medical History Surgeries: Breast, Cardiac, CABG, Joint Replacement, Open Heart Surgery, Orthopedic Currently Using CPAP: No Cardiac: Coronary Artery Disease, High Cholesterol, Hypertension Neurological: Dementia Reproductive: Yes Sexually Transmitted Disease: No HIV/AIDS: No Female Reproductive Disorders: Denies Genitourinary: Bladder Infection, UTI-Chronic Gastrointestinal: Gastroesophageal Reflux Musculoskeletal: Arthritis, Fractures Psychosocial: Anxiety, Depression Skin/Integumentary: Pruritis History of Blood Disorders: No Adverse Reaction to Blood Bryan: No Family History Reviewed Nursing Family Hx Cardiovascular disease 19 MOTHER Diabetes mellitus G8 BROTHER Hypercholesterolemia 19 FATHER Review of Systems Constitutional: see HPI, dizziness, malaise, weakness EENTM: no symptoms reported Respiratory: cough, dyspnea on exertion Cardiovascular: no symptoms reported Gastrointestinal: loss of appetite Genitourinary: no symptoms reported Musculoskeletal: back pain Skin: no symptoms reported Psychiatric/Neurological: No Symptoms Reported All Other Systems Reviewed Negative Unless Noted: Yes Physical Exam Physical Exam Vital Signs Vital Signs - First Documented 02/11/19 02/11/19 13:31 21:50 Temp 97.3 Pulse 75 Resp 21 B/P (MAP) 122/88 (99) Pulse Ox 98 O2 Delivery Nasal Cannula O2 Flow Rate 3.00 FiO2 32 Capillary Refill : Less Than 3 Seconds Height, Weight, BMI Height: 5'6.00" Weight: 165lbs. 0.0oz. 74.885717gd; 26.6 BMI Method:Stated General Appearance: No Apparent Distress, WD/WN, Chronically ill, Thin, Other ( confused) Eyes: Right Eye Normal Inspection, Right Eye PERRL HEENT: PERRL/EOMI, Normal ENT Inspection, Pharynx Normal, Moist Mucous Membranes Neck: Full Range of Motion, Normal Inspection, Non Tender Respiratory: Chest Non Tender, No Accessory Muscle Use, No Respiratory Distress , Crackles, Decreased Breath Sounds Cardiovascular: Regular Rate, Rhythm, No Edema, No Gallop, No JVD, No Murmur, Normal Peripheral Pulses Gastrointestinal: Normal Bowel Sounds, No Organomegaly, No Pulsatile Mass, Non Tender, Soft Back: Normal Inspection, No CVA Tenderness, No Vertebral Tenderness Extremity: Normal Capillary Refill, Normal Inspection, Normal Range of Motion, Non Tender, No Calf Tenderness, No Pedal Edema Neurologic/Psychiatric: Alert, Oriented x3 (subtle confusion), No Motor/ Sensory Deficits, Normal Mood/Affect, Disoriented Skin: Normal Color, Warm/Dry Lymphatic: No Adenopathy Results Results/Procedures Labs Laboratory Tests 02/11/19 14:07 02/12/19 08:52 Patient resulted labs reviewed. Assessment/Plan Admission Diagnosis Assessment: Hyponatremia severe at 113 Fluid overload with elevated BNP CAD previous bypass Dementia Bilateral infiltrates Hypoxia Weakness Falls Plan: Fluid restriction Hep-locked IV fluid Discontinue catheter Reconciled all home meds Appreciate pulmonary and cardiology expertise Admission Status: Inpatient Order (span 2 midnights) Reason for Inpatient Admission: Severe hyponatremia with volume overload. Require 3 days of hospital stay Diagnosis/Problems Diagnosis/Problems (1) Fall from bed Status: Acute Qualifiers: Encounter type: initial encounter Qualified Codes: W06.XXXA - Fall from bed, initial encounter (2) Pneumonia Status: Acute Qualifiers: Pneumonia type: due to unspecified organism Laterality: bilateral Lung location: lower lobe of lung Qualified Codes: J18.1 - Lobar pneumonia, unspecified organism (3) Hypoxia Status: Acute (4) Dementia Status: Chronic Qualifiers: Dementia type: Alzheimer's disease Alzheimer's disease onset: unspecified onset Dementia behavioral disturbance: without behavioral disturbance Qualified Codes: G30.9 - Alzheimer's disease, unspecified; F02.80 - Dementia in other diseases classified elsewhere without behavioral disturbance (5) Leukocytosis Status: Acute Qualifiers: Leukocytosis type: leukemoid reaction Qualified Codes: D72.823 - Leukemoid reaction (6) Elevated brain natriuretic peptide (BNP) level Status: Acute (7) CAD (coronary artery disease) Status: Chronic Qualifiers: Coronary Disease-Associated Artery/Lesion type: [place] artery [place] vs. transplanted heart: [place] heart Associated angina: without angina Qualified Codes: I25.10 - Atherosclerotic heart disease of [place] coronary artery without angina pectoris (8) Hx of CABG Status: Chronic (9) Contusion of forehead Status: Acute Qualifiers: Encounter type: initial encounter Qualified Codes: S00.83XA - Contusion of other part of head, initial encounter (10) Hyponatremia Status: Acute (11) Pleural effusion Status: Acute Clinical Quality Measures DVT/VTE Risk/Contraindication: Risk Factor Score Per Nursin RFS Level Per Nursing on Admit: 3=High JAZLYN MCNEAL DO Feb 12, 2019 09:48
[2019-02-12] MEDS ORDERED: guaiFENesin SYRUP 100 MG/5 ML 10 ML (ROBITUSSIN SF) PO PRN (11:00)
[2019-02-12] MEDS ORDERED: MILK OF MAGNESIA 400 MG/5 ML 30 ML UDC PO PRN (11:00)
[2019-02-12] MEDS ORDERED: ACETAMINOPHEN 500 MG TAB (TYLENOL) PO PRN (11:45)
[2019-02-12] MEDS ORDERED: ARTIFICAL TEARS 0.4 ML UNIT DOSE (REFRESH PLUS) OU PRN (12:15)
[2019-02-12] MEDS: DULoxetine 30 MG (CYMBALTA) CAP PO SCH (12:25)
--- NOTE | 2019-02-12 12:41 | Pulmonary Consultation ---
History of Present Illness History of Present Illness Date of Consultation 02/12/19 12:36 Time Seen by Provider: 12:36 Date of Admission History of Present Illness 79yo presented to ED and found to have severe hyponatremia with Na of 113 and pneumonia. Pt appears to have CHFAE with bilateral pleural effusions and an elevated BNP. pt was admitted after getting lasix and placed on a fluid restriction. I am consulted for pulmonary management. Allergies and Home Medications Allergies Coded Allergies: clindamycin (Unverified Allergy, Unknown, 02/11/19) morphine (Verified Allergy, Unknown, 02/11/19) can take hydrocodone per pt Home Medications Acetaminophen 500 Mg Tablet, 500 MG PO Q4H PRN for PAIN-MILD, (Reported) Aspirin 81 Mg Tablet.dr, 81 MG PO HS, (Reported) Cholecalciferol (Vitamin D3) 1,000 Unit Tablet, 2,000 UNIT PO HS, (Reported) Desoximetasone 60 Gm Cream..g., TP Q12H PRN for RASH, (Reported) Duloxetine HCl 60 Mg Capsule.dr, 60 MG PO DAILY, (Reported) Folic Acid 1 Mg Tablet, 1 MG PO HS, (Reported) Guaifenesin 100 Mg/5 Ml Liquid, 10 ML PO Q4H PRN for COUGH, (Reported) Hypromellose 15 Ml Drops, 1 DROP OU Q6H PRN for DRY EYES, (Reported) Magnesium Hydroxide 400 Mg/5 Ml Oral.susp, 30 ML PO DAILY PRN for CONSTIPATION- 7TH LINE, (Reported) Melatonin 3 Mg Tablet, 3 MG PO HS PRN for SLEEP, (Reported) Mirtazapine 15 Mg Tablet, 15 MG PO HS, (Reported) Pravastatin Sodium 20 Mg Tablet, 20 MG PO HS, (Reported) Ranitidine HCl 150 Mg Tablet, 150 MG PO BID, (Reported) Risperidone 1 Mg Tablet, 1 MG PO HS, (Reported) Rivastigmine 1 Each Patch.td24, 9.5 MG TD DAILY, (Reported) Past Xhnlaeh-Tjmraw-Yrmwhs Hx Past Med/Social Hx: Reviewed Nursing Past Med/Soc Hx, Reviewed and Corrections made Patient Social History Alcohol Use: Denies Use Recreational Drug Use: No Smoking Status: Never a Smoker Recent Foreign Travel: No Contact w/Someone Who Travel: No Recent Infectious Disease Expo: No Recent Hopitalizations: Yes (anemia-unsure of date) Immunizations Up To Date Tetanus Booster (TDap): Unknown Date of Pneumonia Vaccine: April 01, 2009 Date of Influenza Vaccine: Sep 01, 2018 Seasonal Allergies Seasonal Allergies: No Past Medical History Surgeries: Yes (TRIPLE BYPASS-2005, r HIP REPLAEMENT , l hip 2016) Breast, Cardiac, CABG, Joint Replacement, Open Heart Surgery, Orthopedic Respiratory: Yes (WHOOPING COUGH CHILD) Currently Using CPAP: No Cardiac: Yes (CABG) Coronary Artery Disease, High Cholesterol, Hypertension Neurological: Yes Dementia Reproductive Disorders: Yes Female Reproductive Disorders: Denies Sexually Transmitted Disease: No HIV/AIDS: No Bladder Infection, UTI-Chronic Gastrointestinal: Yes Gastroesophageal Reflux Musculoskeletal: Yes ("CRACKED PELVIS", RIGHT HIP REPLACEMENT, LEFT HIP FRACTURE) Arthritis, Fractures Endocrine: No Cancer: No Psychosocial: Yes Anxiety, Depression Integumentary: Yes Pruritis Blood Disorders: No Adverse Reaction/Blood Tranf: No Family Medical History Reviewed Nursing Family Hx Cardiovascular disease 19 MOTHER Diabetes mellitus G8 BROTHER Hypercholesterolemia 19 FATHER Sepsis Event Evaluation Height, Weight, BMI Height: 5'6.00" Weight: 165lbs. 0.0oz. 74.175884pc; 26.6 BMI Method:Stated Exam Exam Vital Signs Date Time Temp Pulse Resp B/P (MAP) Pulse Ox O2 Delivery O2 Flow Rate FiO2 02/12/19 12:00 97.6 80 18 130/62 (84) 92 Nasal Cannula 2.00 02/12/19 11:35 93 Room Air 1.00 02/12/19 08:00 97.9 68 16 162/70 (100) 99 Nasal Cannula 2.00 02/12/19 08:00 Nasal Cannula 3.00 02/12/19 07:20 99 Nasal Cannula 1.00 02/12/19 07:00 55 02/12/19 04:29 98.0 68 20 139/61 (87) 99 Nasal Cannula 2.00 02/12/19 01:00 67 02/12/19 00:00 98.8 78 18 146/78 (100) 98 Nasal Cannula 2.00 02/11/19 21:50 65 97 32 02/11/19 20:58 99.2 78 18 149/67 (94) 99 Nasal Cannula 3.00 02/11/19 20:00 Nasal Cannula 3.00 02/11/19 19:14 73 02/11/19 18:43 Nasal Cannula 3.00 02/11/19 18:00 98.4 68 18 141/64 98 Nasal Cannula 3.00 02/11/19 18:00 98.4 68 18 141/64 (89) 98 Nasal Cannula 3.00 02/11/19 17:48 73 20 157/77 (103) 98 Nasal Cannula 3.00 02/11/19 13:31 97.3 75 21 122/88 (99) 98 Nasal Cannula 3.00 I & O 02/12/19 07:00 Intake Total 1920 ml Output Total 1950 ml Balance -30 ml Height & Weight Height: 5'6.00" Weight: 165lbs. 0.0oz. 74.777807tz; 26.6 BMI Method:Stated General Appearance: No Apparent Distress, WD/WN, Chronically ill, Thin, Other ( confused) HEENT: PERRL/EOMI, Normal ENT Inspection, Pharynx Normal, Moist Mucous Membranes Neck: Full Range of Motion, Normal Inspection, Non Tender Respiratory: Chest Non Tender, No Accessory Muscle Use, No Respiratory Distress , Crackles, Decreased Breath Sounds Cardiovascular: Regular Rate, Rhythm, No Edema, No Gallop, No JVD, No Murmur, Normal Peripheral Pulses Capillary Refill: Less Than 3 Seconds Gastrointestinal: normal bowel sounds, soft, tenderness (generalized in the lower abdomen) Extremity: Normal Capillary Refill, Normal Inspection, Normal Range of Motion, Non Tender, No Calf Tenderness, No Pedal Edema Neurologic/Psychiatric: Alert, Oriented x3 (subtle confusion), No Motor/ Sensory Deficits, Normal Mood/Affect, Disoriented Skin: Normal Color, Warm/Dry Lymphatic: No Adenopathy Results Lab Laboratory Tests 02/11/19 14:07 02/12/19 08:52 Assessment/Plan Assessment/Plan Severe hyponatremia -Monitor -Fluid restriction -Start lasix 40meq daily with 40 k dur -fluid restriction CHFAE -Lasix Hypoxia -oxygen Pneumonia with bilateral infiltrates -Ponce culture - RUDY Irvin DO Feb 12, 2019 12:41
[2019-02-12] MEDS: POTASSIUM CL 10MEQ/50ML IVPB 50 ML IV SCH ×3 (13:57→15:35)
--- NOTE | 2019-02-12 15:07 | Cardiology Progress Note ---
Cardiology SOAP Progress Note Subjective: No Cardiac symptoms. Feeling much better. Objective: I&O/Vital Signs 02/12/19 02/12/19 02/12/19 02/12/19 07:00 07:20 08:00 08:00 Temp 97.9 Pulse 55 68 Resp 16 B/P (MAP) 162/70 (100) Pulse Ox 99 99 O2 Delivery Nasal Cannula Nasal Cannula Nasal Cannula O2 Flow Rate 1.00 3.00 2.00 02/12/19 02/12/19 02/12/19 02/12/19 11:35 12:00 13:00 13:48 Temp 97.6 Pulse 80 79 Resp 18 B/P (MAP) 130/62 (84) Pulse Ox 93 92 95 O2 Delivery Room Air Nasal Cannula Room Air O2 Flow Rate 1.00 2.00 02/12/19 16:23 Temp 98.8 Pulse 83 Resp 19 B/P (MAP) 114/58 (76) Pulse Ox 97 O2 Delivery Nasal Cannula O2 Flow Rate 2.00 02/12/19 00:00 Intake Total 1720 ml Output Total 925 ml Balance 795 ml Weight (Pounds): 165 Weight (Ounces): 0.0 Weight (Calculated Kilograms): 74.237685 Constitutional: appears stated age, AAO x 3; No apparent distress; well- developed, well-nourished Respiratory: No accessory muscle use, No respiratory distress, No chest tender , No chest expansion is symmetric; chest is bilaterally symmetric; No lungs clear to percussion; lungs clear to auscultation; No crackles, No rhonchi, No rales, No stridor, No wheezing, No pleural rub, No other Cardiovascular: regular rate-rhythm; No irregularly irregular, No extra beats, No parasternal heave is noted, No JVD, No edema, No bradycardia, No tachycardia , No point of maximal impulse, No cardiac thrills are palpable; S1 and S2; No gallop/S3, No gallop/S4, No diastolic murmur, No systolic murmur, No friction rub, No click, No other Gastrointestional: No tender, No soft, No round, No distended, No pulsatile mass, No organomegaly, No guarding, No rebound, No tenderness, No hernia, No mass, No audible bowel sounds, No abnormal bowel sounds, No abdominal bruits, No spleenomegaly, No other Extremities: non-tender, normal inspection; No clubbing, No cyanosis, No significant edema Neurologic/Psychiatric: no motor/sensory deficits, alert, normal mood/affect, oriented x 3, power is 5/5 both on sides Skin: No rash, No ulcerations Results/Procedures: Labs Laboratory Tests 02/12/19 08:52: White Blood Count 7.5, Red Blood Count 3.85L, Hemoglobin 11.1L, Hematocrit 32L, Mean Corpuscular Volume 82, Mean Corpuscular Hemoglobin 29, Mean Corpuscular Hemoglobin Concent 35, Red Cell Distribution Width 13.2, Platelet Count 279, Mean Platelet Volume 10.6H, Sodium Level 120*L, Potassium Level 3.3L, Chloride Level 87L, Carbon Dioxide Level 24, Anion Gap 9, Blood Urea Nitrogen 7, Creatinine 0.65, Estimat Glomerular Filtration Rate > 60, BUN/Creatinine Ratio 11, Glucose Level 95, Calcium Level 8.3L, Corrected Calcium 8.8, Phosphorus Level 2.7, Magnesium Level 1.9, Total Bilirubin 0.6, Aspartate Amino Transf (AST /SGOT) 17, Alanine Aminotransferase (ALT/SGPT) 8, Alkaline Phosphatase 85, B- Type Natriuretic Peptide 479.1H, Total Protein 6.1L, Albumin 3.4 A/P: Assessment/Dx: Pneumonia, Hypoxia, Acute mild congestive heart failure, CAD, Hyponatremia, Anemia, Fall Plan: Pneumonia, IV antibiotics. Defer to primary team and Dr Reid. Hypoxia, likely due to pneumonia and CHF. Acute mild congestive heart failure, elevated BNP with normal kidney function. Agree with one dose of Lasix 20 mg IV. Recommend echocardiogram. CAD, continue aspirin. Serial troponin. Hyponatremia, fluid restriction. Anemia, Fall, no syncope. Thank you for your consultation. Please call me if you have any questions. Fantasma Henry MD, FACP, FACC, FSCAI, FHRS, CCDS Interventional Cardiology Cardiac Electrophysiology Vascular Medicine and Endovascular Interventions Gabby HENRY MD Feb 12, 2019 15:07
[2019-02-12] MEDS ORDERED: MELATONIN 3 MG TABLET PO PRN (21:00)
[2019-02-12] MEDS ORDERED: MIRTAZAPINE 15 MG (REMERON) TAB PO SCH (21:00)
[2019-02-12] MEDS ORDERED: FAMOTIDINE 20 MG (PEPCID) TABLET PO SCH (21:00)
[2019-02-12] MEDS ORDERED: ASPIRIN E.C. 81 MG (ECOTRIN) TAB PO SCH (21:00)
[2019-02-12] MEDS ORDERED: FOLIC ACID 1 MG TAB PO SCH (21:00)
[2019-02-12] MEDS ORDERED: SIMvastatin 10 MG (ZOCOR) TAB PO SCH (21:00)
[2019-02-12] MEDS ORDERED: VITAMIN D3 1,000 UNITS (CHOLECALCIFEROL) TABLET PO SCH (21:00)
[2019-02-12] MEDS ORDERED: risperiDONE 1 MG (RisperDAL) TAB PO SCH (21:00)
[2019-02-13 04:00] VITALS: BP 133/84
[2019-02-13] MEDS: PIPERACILLIN/TAZO 4.5 GM/NS 100 ML IV SCH ×2 (06:27)
[2019-02-13] MEDS: KCL 20 MEQ TAB (K-DUR) PO SCH (06:27)
[2019-02-13] MEDS: RT-ALBUTEROL/IPRATROPIUM 3 ML (DUONEB) VIAL INH SCH ×2 (07:32→11:39)
[2019-02-13 08:00] VITALS: BP 183/84
[2019-02-13] MEDS: POLYETHYLENE GLYCOL 17 GM (MIRALAX) PACK PO SCH (08:04)
[2019-02-13] MEDS: FUROSEMIDE 40 MG/4 ML INJ (LASIX) IVP SCH (08:20)
[2019-02-13] MEDS: DULoxetine 30 MG (CYMBALTA) CAP PO SCH (08:20)
[2019-02-13 08:47] LABS: BASOPHILS % (AUTO) 1 % (0-10); EOSINOPHILS # (AUTO) 0.1 10^3/uL (0.0-0.3); EOSINOPHILS % (AUTO) 2 % (0-10); HEMATOCRIT 30 % (35-52); HEMOGLOBIN 10.6 G/DL (11.5-16.0); LYMPHOCYTES # (AUTO) 1.1 X 10^3 (1.0-4.0); LYMPHOCYTES % (AUTO) 18 % (12-44); MEAN CORPUSCULAR HEMOGLOBIN 29 PG (25-34); MEAN CORPUSCULAR HGB CONC 35 G/DL (32-36); MEAN CORPUSCULAR VOLUME 84 FL (80-99); MEAN PLATELET VOLUME 9.9 FL (7.4-10.4); MONOCYTES # (AUTO) 1.5 X 10^3 (0.0-1.0); MONOCYTES % (AUTO) 26 % (0-12); NEUTROPHILS # (AUTO) 3.2 X 10^3 (1.8-7.8); NEUTROPHILS % (AUTO) 54 % (42-75); PLATELET COUNT 300 10^3/uL (130-400); WHITE BLOOD COUNT 5.9 10^3/uL (4.3-11.0)
[2019-02-13] MEDS ORDERED: FAMOTIDINE 20 MG (PEPCID) TABLET PO SCH (09:00)
[2019-02-13] MEDS ORDERED: RIVASTIGMINE 9.5 MG TD SCH (09:00)
[2019-02-13 09:07] LABS: ALANINE AMINOTRANSFERASE 10 U/L (0-55); ALBUMIN 3.5 GM/DL (3.2-4.5); ALKALINE PHOSPHATASE 82 U/L (40-136); BILIRUBIN,TOTAL 0.5 MG/DL (0.1-1.0); BUN/CREATININE RATIO 16; CALCIUM 8.5 MG/DL (8.5-10.1); CARBON DIOXIDE 23 MMOL/L (21-32); CHLORIDE 95 MMOL/L (98-107); GFR ESTIMATED > 60; GLUCOSE 101 MG/DL (70-105); MAGNESIUM 2.1 MG/DL (1.8-2.4); POTASSIUM 4.4 MMOL/L (3.6-5.0); SODIUM 127 MMOL/L (135-145); TOTAL PROTEIN 6.2 GM/DL (6.4-8.2)
--- NOTE | 2019-02-13 10:12 | Pulmonary Progress Note ---
Subjective Time Seen by a Provider: 10:11 Subjective/Events-last exam PT is doing better. Sepsis Event Evaluation Height, Weight, BMI Height: 5'6.00" Weight: 165lbs. 0.0oz. 74.379485ck; 26.6 BMI Method:Stated Exam Exam Vital Signs Date Time Temp Pulse Resp B/P (MAP) Pulse Ox O2 Delivery O2 Flow Rate FiO2 02/13/19 09:04 Room Air 02/13/19 08:00 98.4 65 20 183/84 (117) 96 Room Air 02/13/19 07:32 92 Room Air 02/13/19 07:00 77 02/13/19 04:00 98.3 83 20 133/84 (100) 96 Room Air 02/12/19 23:54 99.0 81 18 139/63 (88) 96 Room Air 02/12/19 20:00 Room Air 02/12/19 19:53 99.3 77 20 126/58 (80) 97 Room Air 02/12/19 19:23 94 Room Air 02/12/19 19:00 79 02/12/19 16:23 98.8 83 19 114/58 (76) 97 Nasal Cannula 2.00 02/12/19 13:48 95 Room Air 02/12/19 13:00 79 02/12/19 12:00 97.6 80 18 130/62 (84) 92 Nasal Cannula 2.00 02/12/19 11:35 93 Room Air 1.00 I & O 02/13/19 07:00 Intake Total 1076 ml Output Total 2246 ml Balance -1170 ml Height & Weight Height: 5'6.00" Weight: 165lbs. 0.0oz. 74.017598hx; 26.6 BMI Method:Stated General Appearance: No Apparent Distress, WD/WN, Chronically ill, Thin, Other ( confused) HEENT: PERRL/EOMI, Normal ENT Inspection, Pharynx Normal, Moist Mucous Membranes Neck: Full Range of Motion, Normal Inspection, Non Tender Respiratory: Chest Non Tender, No Accessory Muscle Use, No Respiratory Distress , Crackles, Decreased Breath Sounds Cardiovascular: Regular Rate, Rhythm, No Edema, No Gallop, No JVD, No Murmur, Normal Peripheral Pulses Capillary Refill: Less Than 3 Seconds Gastrointestinal: normal bowel sounds, soft, tenderness (generalized in the lower abdomen) Extremity: Normal Capillary Refill, Normal Inspection, Normal Range of Motion, Non Tender, No Calf Tenderness, No Pedal Edema Neurologic/Psychiatric: Alert, Oriented x3 (subtle confusion), No Motor/ Sensory Deficits, Normal Mood/Affect, Disoriented Skin: Normal Color, Warm/Dry Lymphatic: No Adenopathy Results Lab Laboratory Tests 02/11/19 14:07 02/12/19 08:52 02/13/19 08:35 Assessment/Plan Assessment/Plan Severe hyponatremia- improving -Monitor -Fluid restriction - lasix 40meq daily with 40 k dur -fluid restriction CHFAE -Lasix Hypoxia -oxygen Pneumonia with bilateral infiltrates -Ponce culture - RUDY Irvin DO Feb 13, 2019 10:12
[2019-02-13] MEDS ORDERED: FURO-125 PO (10:23)
[2019-02-13] MEDS ORDERED: POTA10TA36 PO (10:23)
[2019-02-13] MEDS ORDERED: IPRA3AMP31 INH (10:23)
[2019-02-13] MEDS ORDERED: CEFD300C3 PO (10:23)
[2019-02-13] MEDS ORDERED: LISI-556 PO (10:25)
--- NOTE | 2019-02-13 10:26 | Discharge Summary-Hospitalist ---
Diagnosis/Chief Complaint Date of Admission Feb 11, 2019 at 17:03 Date of Discharge Discharge Date: Feb 13, 2019 Admission Diagnosis Assessment: Hyponatremia severe at 113 Fluid overload with elevated BNP CAD previous bypass Dementia Bilateral infiltrates Hypoxia Weakness Falls Plan: Fluid restriction Hep-locked IV fluid Discontinue catheter Reconciled all home meds Appreciate pulmonary and cardiology expertise Discharge Diagnosis (1) Fall from bed Status: Acute (2) Pneumonia Status: Acute (3) Hypoxia Status: Resolved (4) Dementia Status: Chronic (5) Leukocytosis Status: Resolved (6) Elevated brain natriuretic peptide (BNP) level Status: Acute (7) CAD (coronary artery disease) Status: Chronic (8) Hx of CABG Status: Chronic (9) Contusion of forehead Status: Acute (10) Hyponatremia Status: Acute (11) Pleural effusion Status: Acute Discharge Summary Discharge Physical Exam Allergies: Coded Allergies: clindamycin (Unverified Allergy, Unknown, 02/11/19) morphine (Verified Allergy, Unknown, 02/11/19) can take hydrocodone per pt Vitals & I&Os Vital Signs Date Time Temp Pulse Resp B/P (MAP) Pulse Ox O2 Delivery O2 Flow Rate FiO2 02/13/19 09:04 Room Air 02/13/19 08:00 98.4 65 20 183/84 (117) 96 02/12/19 16:23 2.00 02/11/19 21:50 32 General Appearance: No Apparent Distress, WD/WN, Chronically ill Respiratory: Chest Non Tender, Lungs Clear, Normal Breath Sounds, No Accessory Muscle Use, No Respiratory Distress Cardiovascular: Regular Rate, Rhythm, No Edema, No Gallop, No JVD, No Murmur, Normal Peripheral Pulses Neurologic/Psychiatric: Alert, Oriented x3, No Motor/Sensory Deficits, Normal Mood/Affect, Disoriented Hospital Course Was the Problem List Reviewed?: Yes Hospital course: patient was admitted after dx volume overload and pneumonia in the ER after a fall with severe hyponatremia. Pulmonology and Cardiology were consulted and modifications were made with Lasix and ECHO was obtained. Fluid restriction was placed at 800cc along with gentle IVF of NS with major improvement of sodium level to 127 at time of DC. Pneumonia improved and hypoxia resolved and patient was back to baseline status at time of DC but poor prognosis persists due to significant comorbidities remain and severe chronic debility persists requiring NH placement permanently. Patient was able to ambulate to the bathroom but did mention she was much happier in the hospital rather than at the [facility] and wanted to stay in the hospital severe more weeks and also wanted to change health care providers but I reassured her on the stability and improvement and will have close f/u with [facility] in the upcoming week. Labs (last 24 hrs) Laboratory Tests 02/13/19 08:35: White Blood Count 5.9, Red Blood Count 3.64L, Hemoglobin 10.6L, Hematocrit 30L, Mean Corpuscular Volume 84, Mean Corpuscular Hemoglobin 29, Mean Corpuscular Hemoglobin Concent 35, Red Cell Distribution Width 14.0, Platelet Count 300, Mean Platelet Volume 9.9, Neutrophils (%) (Auto) 54, Lymphocytes (%) (Auto) 18, Monocytes (%) (Auto) 26H, Eosinophils (%) (Auto) 2, Basophils (%) (Auto) 1, Neutrophils # (Auto) 3.2, Lymphocytes # (Auto) 1.1, Monocytes # (Auto) 1.5H, Eosinophils # (Auto) 0.1, Basophils # (Auto) 0.0, Sodium Level 127L, Potassium Level 4.4, Chloride Level 95L, Carbon Dioxide Level 23, Anion Gap 9, Blood Urea Nitrogen 11, Creatinine 0.70, Estimat Glomerular Filtration Rate > 60, BUN/ Creatinine Ratio 16, Glucose Level 101, Calcium Level 8.5, Corrected Calcium 8.9 , Phosphorus Level 2.7, Magnesium Level 2.1, Total Bilirubin 0.5, Aspartate Amino Transf (AST/SGOT) 18, Alanine Aminotransferase (ALT/SGPT) 10, Alkaline Phosphatase 82, Total Protein 6.2L, Albumin 3.5 Patient resulted labs reviewed. Pending Labs Laboratory Tests 02/13/19 08:35: White Blood Count 5.9, Red Blood Count 3.64, Hemoglobin 10.6, Hematocrit 30, Mean Corpuscular Volume 84, Mean Corpuscular Hemoglobin 29, Mean Corpuscular Hemoglobin Concent 35, Red Cell Distribution Width 14.0, Platelet Count 300, Mean Platelet Volume 9.9, Neutrophils (%) (Auto) 54, Lymphocytes (%) (Auto) 18, Monocytes (%) (Auto) 26, Eosinophils (%) (Auto) 2, Basophils (%) (Auto) 1, Neutrophils # (Auto) 3.2, Lymphocytes # (Auto) 1.1, Monocytes # (Auto) 1.5, Eosinophils # (Auto) 0.1, Basophils # (Auto) 0.0, Sodium Level 127, Potassium Level 4.4, Chloride Level 95, Carbon Dioxide Level 23, Anion Gap 9, Blood Urea Nitrogen 11, Creatinine 0.70, Estimat Glomerular Filtration Rate > 60, BUN/ Creatinine Ratio 16, Glucose Level 101, Calcium Level 8.5, Corrected Calcium 8.9 , Phosphorus Level 2.7, Magnesium Level 2.1, Total Bilirubin 0.5, Aspartate Amino Transf (AST/SGOT) 18, Alanine Aminotransferase (ALT/SGPT) 10, Alkaline Phosphatase 82, Total Protein 6.2, Albumin 3.5 Discussion & Recommendations Discharge Planning: <30 minutes discharge planning Discharge Home Medications: Active Scripts Active Lisinopril 5 Mg Tablet 5 Mg PO DAILY 30 Days Cefdinir 300 Mg Capsule 300 Mg PO BID 3 Days Potassium Chloride 10 Meq Tab.er.prt 10 Meq PO DAILY 30 Days Lasix (Furosemide) 20 Mg Tablet 20 Mg PO DAILY 30 Days Iprat-Albut 0.5-3(2.5) mg/3 ml (Ipratropium/Albuterol Sulfate) 3 Ml Ampul.neb 3 Ml INH RTQID 7 Days Reported Vitamin D3 (Cholecalciferol (Vitamin D3)) 1,000 Unit Tablet 2,000 Unit PO HS Ranitidine HCl 150 Mg Tablet 150 Mg PO BID Rivastigmine 1 Each Patch.td24 9.5 Mg TD DAILY Risperidone 1 Mg Tablet 1 Mg PO HS Pravastatin Sodium 20 Mg Tablet 20 Mg PO HS Mirtazapine 15 Mg Tablet 15 Mg PO HS Milk of Magnesia (Magnesium Hydroxide) 400 Mg/5 Ml Oral.susp 30 Ml PO DAILY PRN Melatonin 3 Mg Tablet 3 Mg PO HS PRN Isopto Tears (Hypromellose) 15 Ml Drops 1 Drop OU Q6H PRN Ruby-Tussin (Guaifenesin) 100 Mg/5 Ml Liquid 10 Ml PO Q4H PRN Folic Acid 1 Mg Tablet 1 Mg PO HS Duloxetine HCl 60 Mg Capsule. 60 Mg PO DAILY Topicort (Desoximetasone) 60 Gm Cream..g. TP Q12H PRN Tylenol Extra Strength (Acetaminophen) 500 Mg Tablet 500 Mg PO Q4H PRN Aspirin EC (Aspirin) 81 Mg Tablet. 81 Mg PO HS Instructions to patient/family Please see electronic discharge instructions given to patient. Clinical Quality Measures DVT/VTE Risk/Contraindication: Risk Factor Score Per Nursin RFS Level Per Nursing on Admit: 3=High Problem Qualifiers (1) Fall from bed: Encounter type: initial encounter Qualified Codes: W06.XXXA - Fall from bed, initial encounter (2) Pneumonia: Pneumonia type: due to unspecified organism Laterality: bilateral Lung location: lower lobe of lung Qualified Codes: J18.1 - Lobar pneumonia, unspecified organism (3) Dementia: Dementia type: Alzheimer's disease Alzheimer's disease onset: unspecified onset Dementia behavioral disturbance: without behavioral disturbance Qualified Codes: G30.9 - Alzheimer's disease, unspecified; F02.80 - Dementia in other diseases classified elsewhere without behavioral disturbance (4) Leukocytosis: Leukocytosis type: leukemoid reaction Qualified Codes: D72.823 - Leukemoid reaction (5) CAD (coronary artery disease): Coronary Disease-Associated Artery/Lesion type: [place] artery [place] vs. transplanted heart: [place] heart Associated angina: without angina Qualified Codes: I25.10 - Atherosclerotic heart disease of [place] coronary artery without angina pectoris (6) Contusion of forehead: Encounter type: initial encounter Qualified Codes: S00.83XA - Contusion of other part of head, initial encounter AILEEN MUNIZ DO Feb 13, 2019 10:26
--- NOTE | 2019-02-13 10:57 | NUR ---
CM/SS contacted [facility] that the patient was discharging this day. Faxed discharge information to the facility. They will transport this day at 12pm and will bring the patient a change of clothes.
--- NOTE | 2019-02-13 12:15 | NUR ---
BAYLEE PEPE demonstrates understanding of discharge instructions and accurately returns instructions upon questioning. Copy of Post-Discharge Instructions given to rickshaw driver/tamiko. BAYLEE PEPE is not able to manage continuing needs after discharge. Patients belongings returned to . Patient discharged from [facility] on 02/13/19 at 1215. BAYLEE PEPE left floor via , accompanied by .
--- NOTE | 2019-02-13 12:21 | Cardiology Progress Note ---
Cardiology SOAP Progress Note Subjective: No cardiac symptoms. Objective: I&O/Vital Signs 02/13/19 02/13/19 02/13/19 02/13/19 04:00 07:00 07:32 08:00 Temp 98.3 98.4 Pulse 83 77 65 Resp 20 20 B/P (MAP) 133/84 (100) 183/84 (117) Pulse Ox 96 92 96 O2 Delivery Room Air Room Air Room Air 02/13/19 02/13/19 09:04 11:41 Pulse Ox 93 O2 Delivery Room Air Room Air 02/13/19 00:00 Intake Total 840 ml Output Total 2120 ml Balance -1280 ml Weight (Pounds): 165 Weight (Ounces): 0.0 Weight (Calculated Kilograms): [id number] Constitutional: appears stated age, AAO x 3; No apparent distress; well- developed, well-nourished Respiratory: No accessory muscle use, No respiratory distress, No chest tender , No chest expansion is symmetric; chest is bilaterally symmetric; No lungs clear to percussion; lungs clear to auscultation; No crackles, No rhonchi, No rales, No stridor, No wheezing, No pleural rub, No other Cardiovascular: regular rate-rhythm; No irregularly irregular, No extra beats, No parasternal heave is noted, No JVD, No edema, No bradycardia, No tachycardia , No point of maximal impulse, No cardiac thrills are palpable; S1 and S2; No gallop/S3, No gallop/S4, No diastolic murmur, No systolic murmur, No friction rub, No click, No other Gastrointestional: No tender, No soft, No round, No distended, No pulsatile mass, No organomegaly, No guarding, No rebound, No tenderness, No hernia, No mass, No audible bowel sounds, No abnormal bowel sounds, No abdominal bruits, No spleenomegaly, No other Extremities: non-tender, normal inspection; No clubbing, No cyanosis, No significant edema Neurologic/Psychiatric: no motor/sensory deficits, alert, normal mood/affect, oriented x 3, power is 5/5 both on sides Skin: No rash, No ulcerations Results/Procedures: Labs Laboratory Tests 02/13/19 08:35: White Blood Count 5.9, Red Blood Count 3.64L, Hemoglobin 10.6L, Hematocrit 30L, Mean Corpuscular Volume 84, Mean Corpuscular Hemoglobin 29, Mean Corpuscular Hemoglobin Concent 35, Red Cell Distribution Width 14.0, Platelet Count 300, Mean Platelet Volume 9.9, Neutrophils (%) (Auto) 54, Lymphocytes (%) (Auto) 18, Monocytes (%) (Auto) 26H, Eosinophils (%) (Auto) 2, Basophils (%) (Auto) 1, Neutrophils # (Auto) 3.2, Lymphocytes # (Auto) 1.1, Monocytes # (Auto) 1.5H, Eosinophils # (Auto) 0.1, Basophils # (Auto) 0.0, Sodium Level 127L, Potassium Level 4.4, Chloride Level 95L, Carbon Dioxide Level 23, Anion Gap 9, Blood Urea Nitrogen 11, Creatinine 0.70, Estimat Glomerular Filtration Rate > 60, BUN/ Creatinine Ratio 16, Glucose Level 101, Calcium Level 8.5, Corrected Calcium 8.9 , Phosphorus Level 2.7, Magnesium Level 2.1, Total Bilirubin 0.5, Aspartate Amino Transf (AST/SGOT) 18, Alanine Aminotransferase (ALT/SGPT) 10, Alkaline Phosphatase 82, Total Protein 6.2L, Albumin 3.5 A/P: Assessment/Dx: Pneumonia, Hypoxia, Acute mild congestive heart failure, CAD, Hyponatremia, Anemia, Fall Plan: Pneumonia, IV antibiotics. Defer to primary team and Dr Reid. Hypoxia, likely due to pneumonia and CHF. Acute mild congestive heart failure, elevated BNP with normal kidney function. Agree with one dose of Lasix 20 mg IV. Echocardiogram done 02/12/2019 showed normal LV function with mild to moderate diastolic dysfunction. No significant valvular heart disease. CAD, continue aspirin. Serial troponin. Hyponatremia, fluid restriction. Anemia, Fall, no syncope. Discharge planning defer to Dr. Mcneal. Patient will follow Dr. Bethea as an outpatient. Thank you for your consultation. Please call me if you have any questions. Fantasma Henry MD, FACP, FACC, FSCAI, FHRS, CCDS Interventional Cardiology Cardiac Electrophysiology Vascular Medicine and Endovascular Interventions Gabby HENRY MD Feb 13, 2019 12:21 pm
[2019-02-13 13:05] VITALS: BP 183/84
--- NOTE | 2019-02-13 15:10 | NUR ---
report given to Brielle at [facility]. Reported pt is on a 1200cc fluid restriction for hyponatremia
== END 2019-02-13 12:15 | DRG 291 ==
LOC: EDUNIT# 13:31 → ER 13:34 → 4TH 17:03
PROVIDERS: ADMIT Internal Medicine; ATTEND Internal Medicine
DX: I11.0 Hypertensive heart disease with heart failure (principal); I50.31 Acute diastolic (congestive) heart failure; J18.1 Lobar pneumonia, unspecified organism; R09.02 Hypoxemia; E87.1 Hypo-osmolality and hyponatremia; J90 Pleural effusion, not elsewhere classified; S01.112A Laceration without foreign body of left eyelid and periocular area, initial encounter; G30.9 Alzheimer's disease, unspecified; Z66 Do not resuscitate; F02.80 Dementia in other diseases classified elsewhere, unspecified severity, without behavioral disturbance, psychotic disturbance, mood disturbance, and anxiety; I25.10 Atherosclerotic heart disease of native coronary artery without angina pectoris; E78.00 Pure hypercholesterolemia, unspecified; K21.9 Gastro-esophageal reflux disease without esophagitis; F41.9 Anxiety disorder, unspecified; F32.9 Major depressive disorder, single episode, unspecified; L29.9 Pruritus, unspecified; Z95.1 Presence of aortocoronary bypass graft; W06.XXXA Fall from bed, initial encounter; Y92.122 Bedroom in nursing home as the place of occurrence of the external cause
CPT/HCPCS: 36415; 51702; 70450; 71260; 72125; 74177; 80053; 81000; 83735; 83880; 84100; 85007; 85025; 85027; 86141; 90471; 90715; 93005; 93306; 94640; 94760; 96361; 96374; 96375

== ENCOUNTER → 2019-06-02 | Outpatient (CLI) | payer MEDICARE, MEDICAID ==
[~2019-06-02] VITALS: Ht 165.1 cm; Wt 73.0 kg
[~2019-06-02] MED LIST changes: +ACET-2267 PO; +CATHETER FLUSH 10 ML SYR IV PRN; +CEFD300C3 PO; +CHOL10003 PO; +DESO60CR TP; +DULO60CA58 PO; +FOLI1TAB24 PO; +FURO-125 PO; +GUAI-613 PO; +HYPR15DR6 OU; +IPRA3AMP31 INH; +MAGN400O7 PO; +MELA3TAB PO; +MIRT15TA6 PO; +POTA10TA36 PO; +PRAV20TA3 PO; +RANI150T11 PO; +REGADENOSON 0.4 MG/5 ML SYR (LEXISCAN) IV ONE; +RISP1TAB3 PO; +RIVA1PAT12 TD
[2019-06-02 09:12] VITALS: BP 145/80
--- NOTE | 2019-06-02 22:17 | STRESS TEST ---
DATE OF SERVICE: 06/02/2019 RESTING AND POST REGADENOSON TECHNETIUM-99M TETROFOSMIN SPECT CT IMAGING ORDERING PHYSICIAN: Dr. Bethea. PRIMARY PHYSICIAN: [facility]. CLINICAL DIAGNOSIS: Coronary artery disease. Baseline images were carried out after injection of 10.26 mCi technetium-99m Tetrofosmin. This was followed by 0.4 mg regadenoson and 30.6 mCi technetium-99m Tetrofosmin for stress imaging. The electrocardiogram showed sinus rhythm at baseline and there was nonspecific ST abnormality. The electrocardiogram did not change significantly with the regadenoson infusion. The patient did not report symptoms. Review of images at rest and following stress is indicative of a partially transient apical perfusion defect. Gated images show apical hypokinesis. Left ventricular ejection fraction is calculated to be 47%. Left ventricular end diastolic volume is 82 mL. TID is absent (1.11). CONCLUSIONS: 1. The study is indicative of apical infarction with a small amount of mago-infarct ischemia. 2. Apical hypokinesis. 3. Left ventricular ejection fraction is calculated to be 47%. Job ID: [id number] DocumentID: [id number] Dictated Date: 06/02/2019 19:34:32 Lab Rn Date: 06/02/2019 22:16:35 Dictated By: MARK BETHEA MD, MA, FACP, FACC,
== END ==
LOC: CARD 06:49
PROVIDERS: ATTEND Internal Medicine Cardiovascular Disease
DX: I25.10 Atherosclerotic heart disease of native coronary artery without angina pectoris (principal); I10 Essential (primary) hypertension; R00.2 Palpitations; I49.8 Other specified cardiac arrhythmias; R53.1 Weakness
CPT/HCPCS: 78452; 93017

== ENCOUNTER 2020-01-09 00:08 | Emergency (ER) | payer MEDICARE, MEDICAID ==
[~2020-01-09] VITALS: Ht 165 cm; Wt 77.0 kg
[~2020-01-09 00:08] MED LIST changes: +ATOR20TA66 PO; -CATHETER FLUSH 10 ML SYR IV PRN; +CIPR500T4 PO; -CLON0.5T13 PO; +CLON0.5T4 PO; -DULO60CA58 PO; +DULO60CA59 PO; +FURO40TA4 PO; -MELA3TAB PO; +MELA3TAB65 PO; -METO-387 PO; +MTP25TSR PO; +POTA20TA8 PO; -REGADENOSON 0.4 MG/5 ML SYR (LEXISCAN) IV ONE; +SACU1TAB2 PO; +SILV20CR14 TP; +SNN187T PO
[2020-01-09] MEDS ORDERED: RT-ALBUTEROL/IPRATROPIUM 3 ML (DUONEB) VIAL INH ONE (00:30)
[2020-01-09] MEDS ORDERED: ASPIRIN 81 MG CHEW (CHILDREN'S ASA) PO ONE (00:30)
[2020-01-09] MEDS: NITROGLYCERIN 0.4 MG SL TABS BTL 25'S SL PRN ×3 (00:33→00:42)
[2020-01-09 00:35] LABS: ABG BASE EXCESS -2.7 MMOL/L (-2.5-2.5); ABG OXYGEN SATURATION 93 % (94-100); ABG PCO2 33 MMHG (35-45); ABG PH 7.42 (7.37-7.43); ABG PO2 65 MMHG (79-93)
--- NOTE | 2020-01-09 00:35 | ED Chest Pain ---
General Chief Complaint: Respiratory Problems Stated Complaint: SOA,CP Nursing Triage Note: brought in by [facility] for soa/chest pressure x1 hr Nursing Sepsis Screen: No Definite Risk Source: patient, family, EMS Exam Limitations: no limitations History of Present Illness Date Seen by Provider: Jan 09, 2020 Time Seen by Provider: 00:15 Initial Comments Patient resents to ER by EMS from medical [place] with chief complaint of about an hour prior to arrival she began to experience chest tightness across the front of her chest and shortness of breath while sitting in her chair watching TV. She doesn't history of CABG many years ago. She is known to Dr. Bethea. She is not having any nausea or sweats. She was having some tingling going down her left arm. She has a history of generalized anxiety and somatization disorder. She did not take anything for the pain. She refused aspirin because she says she cannot swallow it. She refused an IV so no nitroglycerin was given. She rates the chest tightness as nonpainful, mild. She says she has mild shortness of breath. She's had an occasional cough for the past couple weeks but she thought she was about over that. She denies any fevers or chills, body aches. She does have albuterol to use for her cough on occasion but she does not use it. She does not smoke drink or use recreational drugs. No history of diabetes. No ST changes on the 12-lead initially. EMS noted that her oxygen sats were around 9091% and initiated 2 L by nasal cannula which brought her up to 98%. Systolic and diastolic CHF, CAD status post CABG [address] [facility] around 2004, MPI from 2018 with an EF of 47% showing an apical infarction small amount of mago-infarct ischemia. Echocardiogram LV EF of 40-45% with grade 2 diastolic dysfunction and moderate to severe mitral and tricuspid regurgitation. History of hypertension, hyperlipidemia, chronic tremors, DJD, mild carotid arterial disease and panic disorder. Allergies and Home Medications Allergies Coded Allergies: clindamycin (Unverified Allergy, Unknown, 02/11/19) morphine (Verified Allergy, Unknown, 02/11/19) can take hydrocodone per pt Home Medications Acetaminophen 500 Mg Tablet, 500 MG PO Q4H PRN for PAIN-MILD, (Reported) Aspirin 81 Mg Tablet.dr, 81 MG PO HS, (Reported) Atorvastatin Calcium 20 Mg Tablet, 20 MG PO HS Prescribed by: MELANY STOKES on 06/10/191154 Cholecalciferol (Vitamin D3) 1,000 Unit Tablet, 2,000 UNIT PO HS, (Reported) Duloxetine HCl 60 Mg Capsule.dr, 60 MG PO DAILY, (Reported) Folic Acid 1 Mg Tablet, 1 MG PO HS, (Reported) Furosemide 40 Mg Tablet, 40 MG PO BID Prescribed by: MELANY STOKES on 06/10/191154 Hypromellose 15 Ml Drops, 1 DROP OU Q6H PRN for DRY EYES, (Reported) Magnesium Hydroxide 400 Mg/5 Ml Oral.susp, 30 ML PO DAILY PRN for CONSTIPATION- 7TH LINE, (Reported) Melatonin 3 Mg Tablet, 3 MG PO HS PRN for SLEEP, (Reported) Metoprolol Succinate 25 Mg Tab.er.24h, 25 MG PO DAILY Prescribed by: MELANY STOKES on 06/10/191154 Mirtazapine 15 Mg Tablet, 15 MG PO HS, (Reported) Potassium Chloride 20 Meq Tab.er.prt, 20 MEQ PO BID WITH MEALS Prescribed by: MELANY STOKES on 06/10/191154 Risperidone 1 Mg Tablet, 0.5 MG PO HS, (Reported) TAKES 1/2 (1MG) TABLET Rivastigmine 1 Each Patch.td24, 9.5 MG TD DAILY, (Reported) Sacubitril/Valsartan 1 Each Tablet, 1 TAB PO BID Prescribed by: MELANY STOKES on 06/10/191154 Sennosides 8.6 Mg Tablet, 8.6 MG PO DAILY, (Reported) Patient Home Medication List Home Medication List Reviewed: Yes Review of Systems Review of Systems Constitutional: No chills, No diaphoresis EENTM: No Blurred Vision, No Double Vision Respiratory: Cough (occasional), Shortness of Air Cardiovascular: Chest Pain (denies pain describes this chest tightness re producible to direct palpation.); Denies Edema, Denies Irregular Heart Rate, Denies Lightheadedness Gastrointestinal: Denies Abdominal Pain, Denies Constipated, Denies Diarrhea, Denies Nausea Genitourinary: Denies Burning, Denies Discharge Musculoskeletal: No back pain, No joint pain Skin: No pruritus, No rash Psychiatric/Neurological: Denies Headache, Denies Numbness, Denies Paresthesia All Other Systems Reviewed Negative Unless Noted: Yes Past Audtehu-Cuvwkd-Ibalsf Hx Patient Social History Alcohol Use: Denies Use Recreational Drug Use: No Smoking Status: Never a Smoker Recent Foreign Travel: No Contact w/Someone Who Travel: No Recent Infectious Disease Expo: No Recent Hopitalizations: No Physical Abuse: No Sexual Abuse: No Mistreated: No Fear: No Immunizations Up To Date Tetanus Booster (TDap): Unknown Date of Pneumonia Vaccine: April 01, 2009 Date of Influenza Vaccine: Sep 01, 2018 Seasonal Allergies Seasonal Allergies: No Past Medical History Surgeries: Yes (TRIPLE BYPASS-2005, r HIP REPLAEMENT , l hip 2016) Breast, Cardiac, CABG, Joint Replacement, Open Heart Surgery, Orthopedic Respiratory: No Currently Using CPAP: No Cardiac: Yes (CABG, chf) Atrial Fibrillation, Coronary Artery Disease, High Cholesterol, Hypertension Neurological: Yes Dementia : No Reproductive Disorders: Yes Female Reproductive Disorders: Denies 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 DELIVERY History: Menopausal Sexually Transmitted Disease: No HIV/AIDS: No Genitourinary: Yes Bladder Infection, UTI-Chronic Gastrointestinal: Yes Gastroesophageal Reflux, Chronic Constipation Musculoskeletal: Yes Arthritis, Fractures Endocrine: No HEENT: No Cancer: No Psychosocial: Yes Anxiety, Depression Integumentary: Yes Pruritis Blood Disorders: No Adverse Reaction/Blood Tranf: No Family Medical History Cardiovascular disease 19 MOTHER Diabetes mellitus G8 BROTHER Hypercholesterolemia 19 FATHER Physical Exam Vital Signs Vital Signs - First Documented 01/09/20 00:08 Temp 37.1 Pulse 75 Resp 16 B/P (MAP) 143/95 (111) Pulse Ox 97 O2 Delivery Nasal Cannula O2 Flow Rate 2.00 Capillary Refill : Less Than 3 Seconds Height, Weight, BMI Height: 5'5.00" Weight: 169lbs. 5.0oz. 76.057748iv; 28.00 BMI Method:Stated General Appearance: No Apparent Distress, WD/WN HEENT: PERRL/EOMI, Pharynx Normal, Moist Mucous Membranes Neck: Full Range of Motion, Normal Inspection Respiratory: No Chest Non Tender (mediastinal chest palpation reproduces her chest discomfort.); Lungs Clear, No Accessory Muscle Use, Decreased Breath Sounds, Respiratory Distress (mild with oxygen sats of 90% on room air all) Cardiovascular: Regular Rate, Rhythm, Normal Peripheral Pulses Gastrointestinal: Normal Bowel Sounds, Non Tender, Soft Extremity: Normal Capillary Refill, Normal Inspection, No Pedal Edema Neurologic/Psychiatric: Alert, Oriented x3, No Motor/Sensory Deficits Skin: Normal Color, Warm/Dry Progress/Results/Core Measures Results/Orders Lab Results Laboratory Tests Test 01/09/20 00:20 01/09/20 00:33 Range/Units Blood Gas Puncture Site RIGHT RADIAL Blood Gas Patient Temperature 37.1 Arterial Blood pH 7.42 7.37-7.43 Arterial Blood Partial Pressure CO2 33 L 35-45 MMHG Arterial Blood Partial Pressure O2 65 L 79-93 MMHG Arterial Blood HCO3 21 L 23-27 MMOL/L Arterial Blood Total CO2 22.0 21.0-31.0 MMOL/L Arterial Blood Oxygen Saturation 93 L 94-100 % Arterial Blood Base Excess -2.7 L -2.5-2.5 MMOL/L Erlin Test YES-POS Blood Gas Ventilator Setting NO Blood Gas Inspired Oxygen 2L White Blood Count 8.3 4.3-11.0 10^3/uL Red Blood Count 3.62 L 4.35-5.85 10^6/uL Hemoglobin 10.9 L 11.5-16.0 G/DL Hematocrit 32 L 35-52 % Mean Corpuscular Volume 89 80-99 FL Mean Corpuscular Hemoglobin 30 25-34 PG Mean Corpuscular Hemoglobin Concent 34 32-36 G/DL Red Cell Distribution Width 15.1 H 10.0-14.5 % Platelet Count 286 130-400 10^3/uL Mean Platelet Volume 10.4 7.4-10.4 FL Neutrophils (%) (Auto) 71 42-75 % Lymphocytes (%) (Auto) 18 12-44 % Monocytes (%) (Auto) 10 0-12 % Eosinophils (%) (Auto) 2 0-10 % Basophils (%) (Auto) 0 0-10 % Neutrophils # (Auto) 5.8 1.8-7.8 X 10^3 Lymphocytes # (Auto) 1.5 1.0-4.0 X 10^3 Monocytes # (Auto) 0.8 0.0-1.0 X 10^3 Eosinophils # (Auto) 0.1 0.0-0.3 10^3/uL Basophils # (Auto) 0.0 0.0-0.1 10^3/uL Prothrombin Time 13.3 12.2-14.7 SEC INR Comment 1.0 0.8-1.4 Activated Partial Thromboplast Time 31 24-35 SEC D-Dimer 0.66 H 0.00-0.49 UG/ML Sodium Level 127 L 135-145 MMOL/L Potassium Level 4.8 3.6-5.0 MMOL/L Chloride Level 97 L 98-107 MMOL/L Carbon Dioxide Level 19 L 21-32 MMOL/L Anion Gap 11 5-14 MMOL/L Blood Urea Nitrogen 15 7-18 MG/DL Creatinine 0.72 0.60-1.30 MG/DL Estimat Glomerular Filtration Rate > 60 BUN/Creatinine Ratio 21 Glucose Level 100 70-105 MG/DL Calcium Level 9.1 8.5-10.1 MG/DL Corrected Calcium 9.1 8.5-10.1 MG/DL Magnesium Level 2.0 1.6-2.4 MG/DL Total Bilirubin 0.3 0.1-1.0 MG/DL Aspartate Amino Transf (AST/SGOT) 19 5-34 U/L Alanine Aminotransferase (ALT/SGPT) 14 0-55 U/L Alkaline Phosphatase 104 40-136 U/L Myoglobin 64.3 10.0-92.0 NG/ML Troponin I 0.062 H <0.028 NG/ML B-Type Natriuretic Peptide 1853.1 H <100.0 PG/ML Total Protein 6.6 6.4-8.2 GM/DL Albumin 4.0 3.2-4.5 GM/DL Micro Results Microbiology 01/09/20 Influenza Types A,B Antigen (CHAIM) - Final, Complete My Orders Orders - CHANNING ABDI Cbc With Automated Diff (01/09/20 00:17) Magnesium (01/09/20 00:17) Chest 1 View, Ap/Pa Only (01/09/20 00:17) Ekg Tracing (01/09/20:17) Comprehensive Metabolic Panel (01/09/20 00:17) Myoglobin Serum (01/09/20 00:17) Protime With Inr (01/09/20 00:17) Partial Thromboplastin Time (01/09/20 00:17) O2 (01/09/20 00:17) Monitor-Rhythm Ecg Trace Only (01/09/20:17) Ed Iv/Invasive Line Start (01/09/20 00:17) BNP (01/09/20 00:17) Nitroglycerin 0.4 Mg Btl 25's (Nitrostat (01/09/20 00:30) Aspirin Chewable Tablet (Baby Aspirin Ch (01/09/20 00:30) Albuterol/Ipra Inhalation Soln (Duoneb I (01/09/20 00:30) Svn Small Volume Nebulizer (01/09/20 00:17) Arterial Blood Gas (01/09/20 00:20) Influenza A And B Antigens (01/09/20 00:37) Fibrin Degradation Products (01/09/20 00:33) Troponin I (01/09/20 00:33) Arterial Blood Draw (01/09/20 ) Lorazepam Injection (Ativan Injection) (01/09/20 03:15) Catheter(Urinary) Insert & Ass 03,15 (01/09/20 03:11) Furosemide Injection (Lasix Injection) (01/09/20 03:15) Medications Given in ED Current Medications Medications Dose Ordered Sig/Mayela Route Start Time Stop Time Status Last Admin Dose Admin Albuterol/ Ipratropium 3 ml ONCE ONCE INH 01/09/20 00:30 01/09/20 00:31 DC 01/09/20 01:23 3 ML Aspirin 324 mg ONCE ONCE PO 01/09/20 00:30 01/09/20 00:31 DC 01/09/20 00:33 324 MG Furosemide 40 mg ONCE ONCE IVP 01/09/20 03:15 01/09/20 03:16 DC 01/09/20 03:19 40 MG Lorazepam 0.5 mg ONCE ONCE IVP 01/09/20 03:15 01/09/20 03:16 DC 01/09/20 03:19 0.5 MG Nitroglycerin 0.4 mg UD PRN SL 01/09/20 00:30 01/09/20 04:26 DC 01/09/20 00:38 0.4 MG Vital Signs/I&O 01/09/20 01/09/20 01/09/20 01/09/20 00:08 00:08 00:49 04:18 Temp 37.1 37.0 Pulse 75 73 Resp 16 12 B/P (MAP) 143/95 (111) 114/71 Pulse Ox 97 97 94 96 O2 Delivery Nasal Cannula Nasal Cannula Nasal Cannula Nasal Cannula O2 Flow Rate 2.00 2.00 1.50 2.00 Blood Pressure Mean: 111 Progress Progress Note #1: Time: 00:35 Progress Note We'll crush some aspirin and give it to her and Tri-Levlen nitroglycerin. We'll give her breathing treatment as a bronchospasm could explain her chest tightness. We don't hear any wheezing however with her diminished breath sounds possible she is having some minor wheezing. She's not in any acute distress right now. She is hypoxic so we'll get an ABG. Chest x-ray, influenza swab, labs. Progress Note #2: Time: 01:59 Progress Note Patient's BNP is in the 1800 range. Typically she lives around the thousand her last period with her chest x-ray findings I would suspect she is in early acute heart failure. She has combined chronic heart failure. We do not have a telemetry bed here to keep her so we'll try [facility]. [facility] declined to accept the patient. Progress Note #3: Time: 02:47 Progress Note Ro is on diversion. Voicemail left with Trevor. Initial ECG Impression Date: Jan 09, 2020 Initial ECG Impression Time: 00:42 Initial ECG Rate: 76 Initial ECG Rhythm: Normal Sinus Initial ECG Intervals: QT (476) Initial ECG Impression: Normal, Nonspecific Changes Initial ECG Comparisson: No Previous ECG Available Comment Sinus arrhythmia without ST elevation or depression. Diagnostic Imaging Diagonstic Imaging: Xray Plain Films/CT/US/NM/MRI: chest (1v) Comments Mild Pulmonary congestion with some possible infiltrate seen on the left base. Reviewed: Reviewed by Me Departure Impression Primary Impression: Acute on chronic combined systolic (congestive) and diastolic (congestive) heart failure Additional Impressions: Hypoxemia Elevated troponin Disposition: XF SHT-TRM HOSP Condition: Stable Transfer Transfer Reason: Diversion Time Spoke to Accepting Phy: 03:05 Transfer Progress Notes Spoke to triage nurse at [facility] and the patient is conditionally accepted. Dr Sosa Marx accepting. Transfer Time: 04:26 Transfer Facility: [facility] Method of Transfer: EMS Departure-Patient Inst. Referrals: [facility] (PCP/Family) Primary Care Physician CHANNING ABDI Jan 09, 2020 00:34
[2020-01-09 00:37] LABS: ALLENS TEST YES-POS; INSPIRED O2 2L; PATIENT TEMP 37.1; VENTILATOR NO
[2020-01-09 00:40] LABS: BASOPHILS % (AUTO) 0 % (0-10); EOSINOPHILS # (AUTO) 0.1 10^3/uL (0.0-0.3); EOSINOPHILS % (AUTO) 2 % (0-10); HEMATOCRIT 32 % (35-52); HEMOGLOBIN 10.9 G/DL (11.5-16.0); LYMPHOCYTES # (AUTO) 1.5 X 10^3 (1.0-4.0); LYMPHOCYTES % (AUTO) 18 % (12-44); MEAN CORPUSCULAR HEMOGLOBIN 30 PG (25-34); MEAN CORPUSCULAR HGB CONC 34 G/DL (32-36); MEAN CORPUSCULAR VOLUME 89 FL (80-99); MEAN PLATELET VOLUME 10.4 FL (7.4-10.4); MONOCYTES # (AUTO) 0.8 X 10^3 (0.0-1.0); MONOCYTES % (AUTO) 10 % (0-12); NEUTROPHILS # (AUTO) 5.8 X 10^3 (1.8-7.8); NEUTROPHILS % (AUTO) 71 % (42-75); PLATELET COUNT 286 10^3/uL (130-400); RED CELL DISTRIBUTION WIDTH 15.1 % (10.0-14.5); WHITE BLOOD COUNT 8.3 10^3/uL (4.3-11.0)
[2020-01-09 00:53] LABS: FIBRIN DEGRADATION PRODUCTS 0.66 UG/ML (0.00-0.49); PROTHROMBIN TIME PATIENT 13.3 SEC (12.2-14.7)
[2020-01-09 01:00] LABS: ALANINE AMINOTRANSFERASE 14 U/L (0-55); ALKALINE PHOSPHATASE 104 U/L (40-136); BILIRUBIN,TOTAL 0.3 MG/DL (0.1-1.0); BUN/CREATININE RATIO 21; CALCIUM 9.1 MG/DL (8.5-10.1); CARBON DIOXIDE 19 MMOL/L (21-32); CHLORIDE 97 MMOL/L (98-107); CREATININE SERUM 0.72 MG/DL (0.60-1.30); GFR ESTIMATED > 60; GLUCOSE 100 MG/DL (70-105); POTASSIUM 4.8 MMOL/L (3.6-5.0); SODIUM 127 MMOL/L (135-145); TOTAL PROTEIN 6.6 GM/DL (6.4-8.2)
[2020-01-09] MEDS ORDERED: FUROSEMIDE 40 MG/4 ML INJ (LASIX) IVP ONE (03:15)
[2020-01-09] MEDS ORDERED: LORazepam INJ 2 MG/ML (ATIVAN) VIAL IVP ONE (03:15)
[2020-01-09 04:18] VITALS: BP 114/71
--- NOTE | 2020-01-09 07:58 | Diagnostic Imaging Report ---
INDICATION: Dyspnea. COMPARISON: 06/10/2019. DISCUSSION: Single portable upright view of the chest was obtained. The lungs are hyperinflated. Normal heart size. Median sternotomy is stable. No definite pleural fluid. Interstitial thickening within the lung bases, particularly on the left, is nonspecific though appears new from the prior exam. This could be seen with worsening chronic lung disease or superimposed infection. No pneumothorax or osseous abnormality. IMPRESSION: 1. Mild interstitial thickening within the lung bases, left greater than right, with early pneumonia not excluded. Dictated by: Dictated on workstation # [id number]
== END 2020-01-09 04:26 | disposition short-term general hospital (02) ==
LOC: EDUNIT# 00:08 → ER 00:09
DX: I11.0 Hypertensive heart disease with heart failure (principal); I50.43 Acute on chronic combined systolic (congestive) and diastolic (congestive) heart failure; R09.02 Hypoxemia; R79.89 Other specified abnormal findings of blood chemistry; I25.10 Atherosclerotic heart disease of native coronary artery without angina pectoris; E78.00 Pure hypercholesterolemia, unspecified; I48.91 Unspecified atrial fibrillation; F41.9 Anxiety disorder, unspecified; F32.9 Major depressive disorder, single episode, unspecified; F03.90 Unspecified dementia, unspecified severity, without behavioral disturbance, psychotic disturbance, mood disturbance, and anxiety; Z95.1 Presence of aortocoronary bypass graft; Z88.1 Allergy status to other antibiotic agents; Z88.5 Allergy status to narcotic agent; Z79.82 Long term (current) use of aspirin; Z96.643 Presence of artificial hip joint, bilateral; Z82.49 Family history of ischemic heart disease and other diseases of the circulatory system
CPT/HCPCS: 36415; 36600; 51702; 71045; 80053; 82805; 83735; 83874; 83880; 84484; 85025; 85379; 85610; 85730; 87804; 93005; 93041; 94640; 96374; 96375

== ENCOUNTER 2020-04-18 19:28 | Inpatient (IN) | payer MEDICARE, MEDICAID ==
[~2020-04-18] VITALS: Ht 165 cm; Wt 70.7 kg
[~2020-04-18 19:28] MED LIST changes: +CARV3.122 PO; +CLOP75TA28 PO; +GUAI-1052 PO; -GUAI-613 PO; +MELA3TAB39 PO; -MELA3TAB65 PO; +PROM25SU10 PR
[2020-04-18 20:06] LABS: BASOPHILS % (AUTO) 0 % (0-10); EOSINOPHILS % (AUTO) 0 % (0-10); HEMATOCRIT 33 % (35-52); HEMOGLOBIN 11.8 G/DL (11.5-16.0); LYMPHOCYTES # (AUTO) 0.5 X 10^3 (1.0-4.0); LYMPHOCYTES % (AUTO) 3 % (12-44); MEAN CORPUSCULAR HEMOGLOBIN 30 PG (25-34); MEAN CORPUSCULAR HGB CONC 36 G/DL (32-36); MEAN CORPUSCULAR VOLUME 84 FL (80-99); MEAN PLATELET VOLUME 12.6 FL (7.4-10.4); MONOCYTES # (AUTO) 1.9 X 10^3 (0.0-1.0); MONOCYTES % (AUTO) 13 % (0-12); NEUTROPHILS # (AUTO) 12.3 X 10^3 (1.8-7.8); NEUTROPHILS % (AUTO) 84 % (42-75); PLATELET COUNT 161 10^3/uL (130-400); RED CELL DISTRIBUTION WIDTH 16.3 % (10.0-14.5); WHITE BLOOD COUNT 14.8 10^3/uL (4.3-11.0)
--- OUTSIDE RECORDS SUMMARY | 2020-04-18 20:07 | XMS REPORT | Encounter Summary ---
[facility] Address Unknown Phone Unavailable Care Team Providers Care Sugar Mixer Name Role Phone Conversion, History PCP Unavailable Encounter Details Care Team Description Date Type Department Olvin Chávez MD Lump or mass in breast (Primary Dx) 07/18/2000 Inpatient Historical Patria davis Historical Pro Fee Social History Date Tobacco Use Types Packs/Day Years Used Never Assessed Sex Assigned at Date Recorded Not on file Industry Job Start Date Occupation Not on file Not on file Not on file Travel End Travel History Travel Start No recent travel history available. documented as of this encounter Plan of Treatment Not on filedocumented as of this encounter Visit Diagnoses Diagnosis Lump or mass in breast - Primary documented in this encounter
--- OUTSIDE RECORDS SUMMARY | 2020-04-18 20:07 | XMS REPORT | Encounter Summary ---
Author Author [facility] [place], [facility] Organization [facility]na WeinsteinPatria [facility] Address Unknown Phone Unavailable Care Team Providers Care Bilingual Teacher Aide Name Role Phone Conversion, History PCP Unavailable Encounter Details Care Team Description [place] [address] [place] [address] RECURR DEPR PSYCH-SEVERE (Primary Dx) 07/21/2002 Inpatient [facility] in Historical Medical Surgical [address] [facility] [place] [address] Social History Date Tobacco Use Types Packs/Day Years Used Never Assessed Sex Assigned at Date Recorded Not on file Industry Job Start Date Occupation Not on file Not on file Not on file Travel End Travel History Travel Start No recent travel history available. 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
--- OUTSIDE RECORDS SUMMARY | 2020-04-18 20:07 | XMS REPORT | Encounter Summary ---
Author [facility] [place] Organization [facility] [place] Weinstein [facility] Address Unknown Phone Unavailable Care Team Providers Care Welding Machine Operator Thermit Name Role Phone Conversion, History PCP Unavailable Encounter Details Care Team Description Date Type Department Allen Corrales DO [address] [place] [phone] Ed, Physician NEUROTIC DEPRESSION (Primary Dx) 07/20/2002 Emergency [facility] [address] [place] [address] JS RODRIGUEZ [phone] Social History Date Tobacco Use Types Packs/Day Years Used Never Assessed Sex Assigned at Date Recorded Not on file Industry Job Start Date Occupation Not on file Not on file Not on file Travel End Travel History Travel Start No recent travel history available. documented as of this encounter Plan of Treatment Not on filedocumented as of this encounter Visit Diagnoses Diagnosis Dysthymic disorder - Primary documented in this encounter
--- OUTSIDE RECORDS SUMMARY | 2020-04-18 20:07 | XMS REPORT | Clinical Summary ---
Author Author [facility] Surveyor [place], [facility] Organization [facility] [place] Address Unknown Phone Unavailable Care Team Providers Care Barber Instructor Name Role Phone Conversion, History PCP Unavailable Allergies Not on File Medications Not on file Active Problems Not on file Social History Date Tobacco Use Types Packs/Day Years Used Never Assessed Sex Assigned at Date Recorded Not on file Industry Job Start Date Occupation Not on file Not on file Not on file Travel End Travel History Travel Start No recent travel history available. Last Filed Vital Signs Not on file Plan of Treatment Health Maintenance Due Date Last Done Comments COLORECTAL SCREENING 1991 ZOSTER VACCINE (1 of 2) 1991 OSTEOPOROSIS SCREENING 2006 PNEUMOCOCCAL VACCINE 65+ 2006 YEARS (1 of 2 - PCV13) INFLUENZA VACCINE 07/02/2019 Results Not on filefrom Last 3 Months
--- OUTSIDE RECORDS SUMMARY | 2020-04-18 20:09 | XMS REPORT ---
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 [employer] [facility] [employer] [facility] Address [address] [address] Care Team Providers Care Tank Pumper Name Role Phone DEE ANTONIO Unavailable Unavailable TIMOTHY, WOLF Unavailable Unavailable TIMOTHY, WOLF Unavailable DAYAN HANDY Unavailable Unavailable TIMOTHY, WOLF Unavailable MARIA LUISA TAN Unavailable Unavailable LIN CANO Unavailable Unavailable LYNDON WRIGHT Unavailable Unavailable JUAREZ SALAZAR Unavailable Unavailable CESAR CANNON Unavailable Unavailable GIOVANI MENENDEZ Unavailable Unavailable MELISSA DONIS Unavailable Unavailable FLO COLEMAN Unavailable Unavailable TIMOTHY, WOLF Unavailable TIMOTHY, WOLF Unavailable TIMOTHY, WOLF Unavailable TIMOTHY, WOLF Unavailable TIMOTHY, WOLF Unavailable TIMOTHY, WOLF Unavailable TIMOTHY, WOLF Unavailable TIMOTHY, WOLF Unavailable TIMOTHY, WOLF Unavailable TIMOTHY, WOLF Unavailable TIMOTHY, WOLF Unavailable TIMOTHY, WOLF Unavailable TIMOTHY, WOLF Unavailable TIMOTHY, WOLF Unavailable TIMOTHY, WOLF Unavailable TIMOTHY, WOLF Unavailable TIMOTHY, WOLF Unavailable TIMOTHY, WOLF Unavailable PAUL PEÑAYLA Unavailable TIMOTHY, WOLF Unavailable TIMOTHY, WOLF Unavailable TIMOTHY, WOLF Unavailable TIMOTHY, WOLF Unavailable TIMOTHY, WOLF Unavailable TIMOTHY, WOLF Unavailable TIMOTHY, WOLF Unavailable TIMOTHY, WOLF Unavailable TIMOTHY, WOLF Unavailable TIMOTHY, WOLF Unavailable TIMOTHY, WOLF Unavailable TIMOTHY, WOLF Unavailable TIMOTHY, WOLF Unavailable TIMOTHY, WOLF Unavailable TIMOTHY, WOLF Unavailable TIMOTHY, WOLF Unavailable TIMOTHY, WOLF Unavailable TIMOTHY, WOLF Unavailable TIMOTHY, WOLF Unavailable TIMOTHY, WOLF Unavailable TIMOTHY, WOLF Unavailable TIMOTHY, WOLF Unavailable TIMOTHY, WOLF Unavailable TIMOTHY, WOLF Unavailable TIMOTHY, WLOF Unavailable CASSIE DOMINGUEZ, KADY Raymundo Unavailable Unavailable CASSIE DOMINGUEZ, KADY Raymundo Unavailable Unavailable MELANIE DOMINGUEZ, FRANCE Henson Unavailable Unavailable MELANIE DOMINGUEZ, FRANCE Henson Unavailable Unavailable TIMOTHY, WOLF Unavailable TIMOTHY, WOLF Unavailable TIMOTHY, WOLF Unavailable TIMOTHY, WOLF Unavailable TIMOTHY, WOLF Unavailable TIMOTHY, WOLF Unavailable TIMOTHY, WOLF Unavailable TIMOTHY, WOLF Unavailable TIMOTHY, WOLF Unavailable TIMOTHY, WOLF Unavailable TIMOTHY, WOLF Unavailable TIMOTHY, WOLF Unavailable TIMOTHY, WOLF Unavailable TIMOTHY, WOLF Unavailable TIMOTHY, WOLF Unavailable TIMOTHY, WOLF Unavailable TIMOTHY, WOLF Unavailable TIMOTHY, WOLF Unavailable TIMOTHY, WOLF Unavailable TIMOTHY, WOLF Unavailable TIMOTHY, WOLF Unavailable TIMOTHY, WOLF Unavailable TIMOTHY, WOLF Unavailable Migration, Doctor Unavailable Unavailable TIMOTHY, WOLF Unavailable Migration, Doctor Unavailable Unavailable Migration, Doctor Unavailable Unavailable Migration, Doctor Unavailable Unavailable Migration, Doctor Unavailable Unavailable Migration, Doctor Unavailable Unavailable Migration, Doctor Unavailable Unavailable Migration, Doctor Unavailable Unavailable Migration, Doctor Unavailable Unavailable MUNIZ DO, AILEEN Unavailable Unavailable MUNIZ DO, AILEEN Unavailable Unavailable Migration, Doctor Unavailable Unavailable Migration, Doctor Unavailable Unavailable Migration, Doctor Unavailable Unavailable MUNIZ, AILEEN Unavailable Unavailable GILLETTE, PETER Unavailable Unavailable GILLETTE, PETER Unavailable Unavailable TIMOTHY, WOLF Unavailable TIMOTHY, WOLF Unavailable TIMOTHY, WOLF Unavailable TIMOTHY, WOLF Unavailable TIMOTHY, WOLF Unavailable DARREN DOMINGUEZ FACC, MARK ACOSTA CCDS Unavailable Unavailabl e TIMOTHY, WOLF Unavailable TIMOTHY, WOLF Unavailable TIMOTHY, WOLF Unavailable TIMOTHY, WOLF Unavailable TIMOTHY, WOLF Unavailable TIMOTHY, WOLF Unavailable Migration, Doctor Unavailable Unavailable SOBEIDA HALL DO K Unavailable Unavailable MELANY STOKES MD Unavailable Unavailable TIMOTHY, WOLF Unavailable TIMOTHY, WOLF Unavailable TIMOTHY, WOLF Unavailable Migration, Doctor Unavailable Unavailable HUSAM ORLANDO Unavailable TIMOTHY, WOLF Unavailable TIMOTHY, WOLF Unavailable TIMOTHY, WOLF Unavailable TIMOTHY, WOLF S Unavailable Unavailable TIMOTHY, WOLF Unavailable TIMOTHY, WOLF Unavailable TIMOTHY, WOLF Unavailable TIMOTHY, WOLF Unavailable TIMOTHY, WOLF Unavailable TIMOTHY, WOLF Unavailable TIMOTHY, WOLF Unavailable TIMOTHY, WOLF Unavailable TIMOTHY, WOLF Unavailable CHANNING ABDI MD Unavailable Unavailable TIMOTHY, WOLF Unavailable TIMOTHY, WOLF Unavailable TIMOTHY, WOLF Unavailable TIMOTHY, WOLF Unavailable Migration, Doctor Unavailable Unavailable MUNIZ DO, AILEEN S Unavailable Unavailable MUNIZ DO, AILEEN S Unavailable Unavailable TIMOTHY, WOLF Unavailable TIMOTHY, WOLF Unavailable TIMOTHY, WOLF Unavailable TIMOTHY, WOLF Unavailable TIMOTHY, WOLF Unavailable MELY BELLO, MANUEL Chu Unavailable Unavailable VAN GILLETTE APRN Unavailable Unavailable SERGIO DOMINGUEZ, MEI Chopra Unavailable Unavailable CASSIE DOMINGUEZ, KADY Raymundo Unavailable Unavailable KADY MATTHEWS MD Unavailable Unavailable TIMOTHY FOREMAN/PROJECT MANAGER, WOLF Unavailable Unavailable SHANDA SAINI MD Unavailable Unavailable SCARLETT NUNES, JERMAINE Colmenares Unavailable Unavailab tashia LEÓN MD, RAMONA Raymundo Unavailable Unavailable SHAI DOMINGUEZ, FRED Ann Unavailable Unavailable SHAI DOMINGUEZ, FRED Ann Unavailable Unavailable MELANIE DOMINGUEZ, FRANCE Henson Unavailable Unavailable MELANIE DOMINGUEZ, FRANCE Henson Unavailable Unavailable VIRGINIA DOMINGUEZ, FLO Rdz Unavailable Unavailable BONNIE DO, MORAIMA K Unavailable Unavailable TIMOTHY, WOLF Unavailable TIMOTHY, WOLF Unavailable TIMOTHY, WOLF Unavailable TIMOTHY, WOLF Unavailable TIMOTHY, WOLF Unavailable TIMOTHY, WOLF Unavailable TIMOTHY, WOLF Unavailable TIMOTHY, WOLF Unavailable TARTAGLIONE, ALEC Unavailable Unavailable TARTAGLIONE, ALEC Unavailable Unavailable TARTAGLIONE, ALEC Unavailable Unavailable TIMOTHY, WOLF Unavailable TIMOTHY, WOLF Unavailable TIMOTHY, WOLF Unavailable TIMOTHY, WOLF Unavailable TIMOTHY, WOLF Unavailable Unavailable Unavailable Unavailable Unavailable Unavailable Unavailable Unavailable Unavailable Unavailable Unavailable Allergies The data below is from unstructured sources Substance Reaction Event Type N.K.D.A. Info Not Available Non Drug Allergy No Information Medications Current Medications Medication Ingredient Drug Dose Dates Status Sig Sig Care Class(es) (Normalized) (Original) Provid er no - 81 no 11-07-20 Active no 81 no information MG information 16 information MG Orally name (1 source.) Once a day 1 tablet 24h Nov, Active 12 hr buPROPion Aminoketone 150 mg Active take 1 BuPROPion no buPROPion Translation tablet by HCl ER (XL) name hydrochlori s: [ mouth once 150 MG TAKE de 150 mg BuPROPion daily 1 TABLET BY extended HCl ER (XL) MOUTH ONCE release 150 MG, DAILY 30 oral tablet BuPROPion Active (4 HCl ER (XL) sources.) 150 MG] 150 mg Active take 1 BuPROPio no name tablet n HCl ER by (XL) 150 mouth MG TAKE once 1 TABLET daily BY MOUTH ONCE DAILY 30 Active clindamycin Clindamycin Lincosamide 10 01-04-20 Active no Clindamycin no 10 mg/ml Translation Antibacteri mg/mL 15 information Phosph ate 1 name topical s: [ al % 1 lotion (1 Clindamycin Application source.) Phosphate 1 by Topical %] route 2 times per day apply after washing your face Jan, Active desoximetas desoximetas Corticoster 2.5 04-03-20 Active no Desoximetaso no one 2.5 one oid mg/mL 18 information ne 0.25 % name mg/ml Translation Externally topical s: [ Twice a day cream (6 Topicort prn 1 sources.) 0.25 %, application Desoximetas to affected one 2.5 area 03 April, MG/ML 2017 Active Topical Cream, Desoximetas one 0.25 %, Desoximetas one 0.25 %, Desoximetas one 0.25 %] 2.5 mg/mL Active no Topicort no name inform 0.25 % ation External ly Twice a day 1 applicat ion to affected area 12h Active docusate docusate no 100 mg 03-07-20 Active no Colace 10 0 no sodium 100 Translation information 18 information mg Oral ly name mg oral s: [ Colace Once a day 1 capsule (3 100 mg, capsule 24h sources.) Colace 100 Mar, mg] 30 day(s) Active guaiFENesin guaiFENesin no 600 mg 11-20-20 Active no Muc inex 600 no 600 mg oral Translation information 17 - information MG Ora lly name tablet (2 s: [ 11-27-20 every 12 hrs sources.) Mucinex 600 17 1 tablet 12h MG] Nov, Nov, 07 days Active hypromellos hypromellos no 1 Active take 1 Isopto Tears no e 5 mg/ml e information drop(s drop(s) into 0.5 % n laura ophthalmic Translation ) the eye(s) Ophthalmic solution (8 s: [ Isopto every six every 6 sources.) Tears 0.5 hours as hours as %, Isopto needed needed for Tears 0.5 PRN- dry %] eyes 1 drop in both eyes Active no Isopto no 1 Active take 1 Isopto Tears no information Tears 0.5 % information drop(s drop(s) into 0.5 % name (1 source.) ) the eye(s) Ophthalmic every six every 6 hours as hours as needed needed for PRN- dry eyes 1 drop in both eyes Active magnesium magnesium no 2400 Active take 30 mL Milk of no hydroxide hydroxide information mg/mL by mouth Magnesia name 80 mg/ml Translation once daily 7.75 % oral s: [ Milk as needed Orally once suspension of Magnesia daily 30 ml (6 7.75 %, as needed sources.) Milk of 24h Active Magnesia 7.75 %] metroNIDAZO metroNIDAZO Nitroimidaz 7.5 01-02-20 Active no Metronidazol no LE 7.5 LE ole mg/mL 18 information e 0.75 % name mg/ml Translation Antimicrobi Externally topical s: [ al Twice a day cream (1 Metronidazo as needed source.) le 0.75 %] for rash 1 application to affected area Jan, Active no Milk of no 232.5 Active no Milk of no information Magnesia information % information Magnesia name (1 source.) 7.75 % 7.75 % Orally once daily 30 ml as needed 24h Active montelukast montelukast Leukotriene 10 mg 02-24-20 Active take 1 Singulair 10 no 10 mg oral Translation Receptor 15 tablet by mg 1 tablet name tablet (1 s: [ Antagonist mouth once by Oral source.) Singulair daily at route 1 time 10 mg] bedtime per day take at hs 25 Jan, 2015 Active pantoprazol pantoprazol Proton Pump 40 mg Active take 1 Pantopra zole no e 40 mg e Inhibitor tablet by Sodium 40 MG name delayed Translation mouth once TAKE 1 release s: [ daily at TABLET BY oral tablet Protonix 40 bedtime MOUTH EVERY (6 MG, NIGHT AT sources.) pantoprazol BEDTIME 30 e 40 MG Active Delayed Release Oral Tablet, Pantoprazol e Sodium 40 MG, Protonix 40 MG] 40 mg Active no Protonix no name inform 40 MG ation Orally Once a day 1 tablet 24h Active pravastatin pravastatin HMG-CoA 20 mg Active take 1 Pravastatin no sodium 20 Translation Reductase tablet by Sodium 20 MG name mg oral s: [ Inhibitor mouth once TAKE 1 tablet (9 Pravastatin daily at TABLET BY sources.) Sodium 20 bedtime MOUTH EVERY mg, NIGHT AT Pravastatin BEDTIME 30 Sodium 20 Active MG] QUEtiapine QUEtiapine Atypical 50 mg Active no Seroquel 25 no 25 mg oral Translation Antipsychot information MG Orally at name tablet (1 s: [ ic bedtime 2 source.) Seroquel 25 tablets MG] Active raNITIdine raNITIdine Histamine-2 150 mg 06-12-20 Active take 1 Zantac 150 no 150 mg oral Translation Receptor 18 tablet by mg Orally name tablet (7 s: [ Zantac Antagonist mouth twice twice a day sources.) 150 MG] daily 1 tablet 12h Jun, 30 day(s) Active 150 mg 06-12-2018 Active no Zantac no name inform 150 mg ation Orally twice a day 1 tablet 12h Jun, 30 day(s) Active 150 mg 06-12-2018 Active no Zantac no name inform 150 MG ation Orally Once a day 1 tablet at bedtime 24h Jun, 30 day(s) Active no rifAXIMin Rifamycin 550 mg 08-07-20 Active no Xifaxan 550 no information Translation Antibacteri 18 - information MG Ora lly name (2 s: [ al 08-21-20 Three times sources.) Xifaxan 550 18 a day 1 MG] tablet 8h Aug, Aug, 14 days Active 550 mg 08-07-2018 Active no Xifaxan no name - inform 550 MG 08-21-2018 ation Orally Three times a day 1 tablet 8h Aug, Aug, 14 days Active no Tylenol no 500 mg 02-14-20 Active no Tylenol no information Extra information 18 information Extra name (4 Strength Strength 500 sources.) 500 mg mg Orally Translation every 6 hrs s: [ 1 tablet as Tylenol needed 6h 15 Extra Jan, 2018 Strength Active 500 mg, Tylenol Extra Strength 500 mg] no Vitamin D-3 no 2000 Active no Vitamin D-3 no information 1000 UNIT information [IU] information 1000 UNIT name (8 Translation Orally Once sources.) s: [ a day at Vitamin D-3 bedtime 2 1000 UNIT, capsules Vitamin D-3 Active 1000 UNIT] Completed/Discontinued Medications Medication Ingredient Drug Dose Dates Status Sig Sig Care Class(es) (Normalized) (Original) Provid er no ALUM/MAG/SI no 03-18-20 no no no no information METH 30CC information 20 - informat information in formation name (1 source.) LIQ 20 ion (MYLANTA 20 PLUS) 03-18-2020 no no no no name - information inform informat 03-28-2020 ation ion no ALUM/MAG/SI no 03-09-20 no no no no information METH 30CC information 17 - informat information in formation name (1 source.) LIQ 0 03-18-20 ion (MYLANTA 17 PLUS) no Amitriptyli Tricyclic 25 mg 03-26-20 no no no no information ne Antidepress 20 - informat information infor mation name (1 source.) ant 04-24-20 ion 20 no ASA 81MG no 03-18-20 no no no no information ENTERIC information 17 - informat information info rmation name (1 source.) COATED TAB 04-16-20 ion 81 MG (BABY 17 ASPIRIN EC) no Benztropine Anticholine 0.5 mg 03-24-20 no no no no information Translation rgic, 20 - informat information inform ation name (1 source.) s: [ Antihistami 03-31-20 ion BENZTROPINE ne 20 TAB 1 MG (COGENTIN)] 1 mg 03-24-2020 no no no no name - information inform informat 03-24-2020 ation ion no BISACODYL no 10 mg 03-18-20 no no no no information SUPPOS 10 information 20 - informat information in formation name (1 source.) MG 20 ion (DULCOLAX 20 SUPPOS) 10 mg 03-18-2020 no no no no name - information inform informat 03-24-2020 ation ion no BISACODYL no 10 mg 03-09-20 no no no no information SUPPOS SUP information 17 - informat informatio n information name (1 source.) 10 MG 05-08-20 ion (DULCOLAX 17 SUPPOS) no CALMOSEPTIN no 03-18-20 no no no no information E [place] information - informat informati on information name (1 source.) (RISAMINE 04-17-20 ion OINT) 20 03-18-2020 no no no no name - information inform informat 03-24-2020 ation ion no CALMOSEPTIN no 03-09-20 no no no no information E [place] information 17 - informat informati on information name (1 source.) OINT 0 03-15-20 ion (RISAMINE 17 [place]) no carvedilol alpha-Adren 3.125 03-17-20 no no no no information ergic mg 20 - informat information informatio n name (1 source.) Lio, 04-16-20 ion beta-Adrene 20 rgic Lio no CITRATE OF no 03-27-20 no no no no information MAGNESIA information 20 - informat information inf ormation name (1 source.) LIQ 03-27-20 ion 20 03-19-2020 no no no no name - information inform informat 03-19-2020 ation ion no Clonazepam no 0.25 03-18-20 no no no n o information Oral information mg 20 - informat information information name (1 source.) Dissolve 03-20-20 ion Tab 0.25mg 20 (Klonopin) no clopidogrel [id number] 75 mg 03-18-20 no no no no information Platelet 20 - informat information information name (1 source.) Inhibitor 04-16-20 ion 20 no DULoxetine Serotonin 30 mg 03-18-20 no no no no information Translation and 20 - informat information inform ation name (9 s: [ Norepinephr 04-16-20 ion sources.) Duloxetine ine 20 HCl 60 MG, Reuptake Duloxetine Inhibitor HCl 60 MG, duloxetine 30 MG Delayed Release Oral Capsule, Duloxetine HCl 30 MG, DULOXETINE CAP 30 MG (CYMBALTA)] 60 mg Active take 1 Duloxeti no name capsul ne HCl e by 60 MG mouth Orally once Once a daily day 1 capsule 24h 30 days Active 30 mg Active no Duloxeti no name inform ne HCl ation 30 MG Orally Once a day 1 capsule 24h 30 days Active 60 mg Active take 1 Duloxeti no name capsul ne HCl e by 60 MG mouth TAKE 1 once CAPSULE daily BY MOUTH ONCE DAILY 30 Active 60 mg Active no Duloxeti no name inform ne HCl ation 60 mg Orally Once a day 1 capsule 24h Active no fluvoxaMINE Serotonin 50 mg 03-19-20 no no no no information Reuptake 20 - informat information information name (1 source.) Inhibitor 04-18-20 ion 20 50 mg 03-19-2020 no no no no name - information inform informat 03-19-2020 ation ion no folic acid no 1 mg 03-17-20 no no no n o information Translation information - informat informati on information name (11 s: [ Folic 04-15-20 ion sources.) Acid 1 MG, 20 Folic Acid 1 MG, Folic Acid 1 MG, FOLIC ACID TAB 1 MG] 1 mg Active take 1 Folic no name tablet Acid 1 by MG mouth Orally once Once a daily day at at bedime 1 bedtim tablet e Active 1 mg Active no Folic no name inform Acid 1 ation MG Orally Once a day at bedime 1 tablet Active no Furosemide Loop 40 mg 03-22-20 no no no n o information Translation Diuretic - informat information inf ormation name (1 source.) s: [ 04-19-20 ion FUROSEMIDE 20 TAB 40 MG (LASIX)] 80 mg 03-18-2020 no no no no name - information inform informat 04-16-2020 ation ion gabapentin gabapentin Anti-epilep 100 mg 06-03-20 Suspende take 1 Gabapentin no 100 mg oral Translation tic Agent 18 d capsule by 100 m g name capsule (6 s: [ mouth twice Orally 2 sources.) Gabapentin daily times a day 100 mg, 1 capsule Gabapentin Jun, 100 mg, 2017 Gabapentin Not-Taking 100 mg] 100 mg 06-03-2018 Active no Gabapent no name inform in 100 ation mg Orally 2 times a day 1 capsule Jun, Active no Guaifenesin no 03-18-20 no no no no information ) oral information - informat information infor mation name (1 source.) liquid 04-17-20 ion 200mg/10mL 20 (Robitussin ) no Haloperidol Typical 5 mg 03-27-20 no no no no information Antipsychot - informat information informat ion name (1 source.) ic 03-29-20 ion 20 5 mg 03-26-2020 no no no no name - information inform informat 03-29-2020 ation ion 5 mg 03-24-2020 no no no no name - information inform informat 03-26-2020 ation ion 5 mg 03-22-2020 no no no no name - information inform informat 04-21-2020 ation ion 5 mg 03-22-2020 no no no no name - information inform informat 03-22-2020 ation ion 5 mg 03-20-2020 no no no no name - information inform informat 04-19-2020 ation ion 5 mg 03-19-2020 no no no no name - information inform informat 04-18-2020 ation ion 5 mg 03-19-2020 no no no no name - information inform informat 03-19-2020 ation ion no HALOPERIDOL no 04-24-20 no no no no information DECANOATE information 20 - informat information in formation name (1 source.) INJ 100 04-24-20 ion MG/CC 20 (HALDOL DECANOATE IM) 04-19-2020 no no no no name - information inform informat 04-19-2020 ation ion 03-27-2020 no no no no name - information inform informat 03-27-2020 ation ion 03-22-2020 no no no no name - information inform informat 03-22-2020 ation ion no HALOPERIDOL no 03-27-20 no no no no information VIAL INJ 5 information - informat informatio n information name (1 source.) MG/CC 04-03-20 ion (HALDOL 1CC 20 VIAL) 03-27-2020 no no no no name - information inform informat 03-27-2020 ation ion 03-25-2020 no no no no name - information inform informat 03-25-2020 ation ion 03-24-2020 no no no no name - information inform informat 03-30-2020 ation ion 03-24-2020 no no no no name - information inform informat 03-24-2020 ation ion 03-22-2020 no no no no name - information inform informat 03-22-2020 ation ion 03-21-2020 no no no no name - information inform informat 03-21-2020 ation ion no Lactulose Osmotic 03-18-20 no no no no information Translation Laxative 20 - informat information inf ormation name (4 s: [ 05-17-20 ion sources.) Lactulose 20 20 GM/30ML, Lactulose 667 MG/ML Oral Solution [Enulose], Enulose 10 GM/15ML, LACTULOSE SYRUP LIQ 20 GM/30CC (CHRONULAC SYRUP)] 03-18-2020 no no no no name - information inform informat 04-16-2020 ation ion 03-09-2017 no no no no name - information inform informat 04-08-2017 ation ion 89700 mg/mL Active take Enulose no name 30 mL 10 by GM/15ML mouth GIVE once 30ML BY daily MOUTH ONCE DAILY 30 Active no Loperamide Opioid 2 mg 03-18-20 no no no n o information Agonist 20 - informat information information name (1 source.) 04-17-20 ion 20 2 mg 03-18-2020 no no no no name - information inform informat 03-24-2020 ation ion 2 mg 03-09-2017 no no no no name - information inform informat 04-08-2017 ation ion no LORazepam Benzodiazep 1 mg 03-20-20 no no no no information Translation ine 17 - informat information inform ation name (1 source.) s: [ 03-29-20 ion LORAZEPAM 17 TAB 1 MG (ATIVAN)] 1 mg 03-17-2017 no no no no name - information inform informat 03-17-2017 ation ion no LORAZEPAM no 03-20-20 no no no no information 1CC VIAL information 17 - informat information inf ormation name (1 source.) INJ 2 MG/CC 03-29-20 ion (ATIVAN 17 VIAL) no LORAZEPAM no 03-11-20 no no no no information 1CC VIAL information 17 - informat information inf ormation name (1 source.) INJ 2 MG/CC 20 ion (ATIVAN 17 VIAL) no MILK OF no 03-18-20 no no no no information MAGNESIA information 20 - informat information inf ormation name (1 source.) LIQ 04-17-20 ion 20 no MILK OF no 03-09-20 no no no no information MAGNESIA information 17 - informat information inf ormation name (1 source.) LIQ 0 03-15-20 ion 17 no Normal no 03-17-20 no no no no information saline information - informat information infor mation name (1 source.) 03-17-20 ion 20 no Ondansetron no 4 mg 03-18-20 no no no no information 4mg oral information - informat information inf ormation name (1 source.) DissolveTab 04-17-20 ion (Zofran) 20 no Polyethylen no 17 g 03-17-20 no no no no information e Glycols information 20 - informat information in formation name (1 source.) 04-16-20 ion 20 17 g 03-17-2020 no no no no name - information inform informat 03-27-2020 ation ion 03-24-2017 no no no no name - information inform informat 04-03-2017 ation ion no Potassium no 20 mEq 03-18-20 no no no no information Chloride information - informat information inf ormation name (1 source.) 04-16-20 ion 20 20 mEq 03-17-2020 no no no no name - information inform informat 03-17-2020 ation ion 20 mEq 03-17-2020 no no no no name - information inform informat 04-15-2020 ation ion no PROMETHAZIN no 25 mg 03-18-20 no no no no information E SUPPOS information - informat information inf ormation name (1 source.) SUP 25 MG 04-17-20 ion (PHENERGAN 20 SUPPOS) no risperiDONE Atypical 0.5 mg 03-19-20 no no no no information Translation Antipsychot - informat informati on information name (8 s: [ ic 04-18-20 ion sources.) Risperidone 20 2 MG, Risperidone 2 MG, Risperidone 1 MG Oral Tablet, Risperidone 1 MG, Risperidone 1 MG, RISPERIDONE TAB 0.5 MG (RISPERDAL) ] 0.5 mg 03-18-2020 no no no no name - information inform informat 04-16-2020 ation ion 1 mg Active take 1 Risperid no name tablet one 1 MG by Orally mouth Once a once day 1 daily tablet 24h 30 days Active 2 mg Active no Risperid no name inform one 2 MG ation Orally 2 times a day 1 tablet 12h Active no Rivastigmin no 4.6 mg 03-23-20 no no no no information e TD Patch information - informat informatio n information name (1 source.) 24 hour 04-01-20 ion 4.6mg 17 (EXELON) no Rivastigmin no 9.5 mg 03-18-20 no no no no information e TD Patch information - informat informatio n information name (1 source.) 24 hour 04-16-20 ion 9.5mg 20 (EXELON) no sacubitril Angiotensin 03-18-20 no no SACUBITRIL- V no information / valsartan 2 Receptor 20 - informat information A LSARTAN name (1 source.) Loi 04-16-20 ion 24-26MG 1 1 20 no SENNA no 03-24-20 no no no no information CONC/DOCUSA information - informat informati on information name (1 source.) TE TAB 04-23-20 ion (SENOKOT S) 20 no SENNA no 03-18-20 no no no no information CONC/DOCUSA information - informat informati on information name (1 source.) TE TAB 04-16-20 ion (SENOKOT S) 20 03-18-2020 no no no no name - information inform informat 04-15-2020 ation ion no Tetrahydroc Cannabinoid 2.5 mg 03-22-20 no no no no information annabinol 17 - informat information informatio n name (1 source.) 04-01-20 ion 17 no traMADol Opioid 50 mg 03-28-20 no no no no information Agonist 20 - informat information information name (1 source.) 03-28-20 ion 20 no traZODone Serotonin 50 mg 03-19-20 no no no no information Reuptake 20 - informat information information name (2 Inhibitor 04-17-20 ion sources.) 20 50 mg 03-25-2017 no no no no name - information inform informat 04-03-2017 ation ion 50 mg 03-09-2017 no no no no name - information inform informat 04-08-2017 ation ion no venlafaxine Serotonin 75 mg 03-18-20 no no no no information and 20 - informat information information name (1 source.) Norepinephr 04-16-20 ion ine 20 Reuptake Inhibitor no VITAMIN D-3 no 03-18-20 no no no no information TAB 1000 information 20 - informat information inf ormation name (1 source.) UNITS 05-16-20 ion (25mcg) 20 (VITAMIN D-3) NEGATED no no 5 mg 03-22-20 no no no no no information information 17 - informat information infor mation name information 04-20-20 ion (1 source.) 17 Problems Active Problems Problem Normalized Date Last Normalized Normalized Provider Fa cility Classification Problem(s) Recorded Problem Problem Sta tus Duration Other Abnormal Episodic Active AILEEN MUNIZ Not Availa ble nutritional; weight loss (54796) endocrine; and metabolic disorders (25 sources.) Congestive Acute Chronic Active AILEEN MUNIZ [facility] Via heart failure; diastolic DO Maddie nonhypertensiv (congestive) Hospital - e (21 heart failure [place] sources.) Translations: () [ - Acute on chronic systolic congestive heart failure I50.23, Acute on chronic systolic congestive heart failure, Acute on chronic systolic congestive heart failure, ACUTE COMBINED SYSTOLIC AND DIASTOLIC (C, ACUTE ON CHRONIC COMBINED SYSTOLIC AND D] Acute Acute Episodic Active KADY MATTHEWS [facility] Via posthemorrhagi posthemorrhagi MD Maddie melendrez anemia (8 c anemia Hospital - sources.) [place] (07845) Other Adult failure Episodic Active WOLF TIMOTHY Com munity nutritional; to thrive [address] [place] [address] endocrine; and syndrome of [facility] metabolic Translations: [place] () disorders (20 [ Failure to sources.) thrive in adult, Failure to thrive in adult] Allergic Allergy status Episodic Active MANUEL MELY Not Sarah ilable reactions (28 to narcotic (40566) sources.) agent status Translations: [ ALLERGY STATUS TO OTHER ANTIBIOTIC AGENT, ALLERGY STATUS TO NARCOTIC AGENT STATUS] Deficiency and Anemia, Episodic Active FRANCE NAVARRO , Not Available other anemia unspecified (70328) (25 sources.) External cause Bedroom in Episodic Active KADY MATTHEWS V Via codes: Place group home MD [facility] of occurrence as the place Hospital - (6 sources.) of occurrence [place] of the () external cause Translations: [ SHOP (COMMERCIAL) PLACE] Other Chronic Chronic Active WOLF TIMOTHY Communit y gastrointestin idiopathic [id number] [place] [address] al disorders constipation of [facility] (20 sources.) Translations: [place] () [ - Chronic idiopathic constipation K59.04] Chronic Chronic Chronic Active AILEEN MUNIZ [facility] Via obstructive obstructive DO [facility] - disease and disease, [place] bronchiectasis unspecified (79113) (8 sources.) Residual Chronic pain Episodic Active WOLF TIMOTHY Comm unity codes; Translations: [address] [place] [address] unclassified [ Other of [place] (20 sources.) chronic pain] [place] (99033) Other Constipation Episodic Active WOLF TIMOTHY Comm unity gastrointestin Translations: [address] [place] [address] al disorders [ of [place] (20 sources.) Constipation, [place] (46040) unspecified constipation type, Constipation, unspecified constipation type] Other Constipation, Episodic Active BOB ARZATE Not Available gastrointestin unspecified , (58884) al disorders (21 sources.) Other skin Corns and Episodic Active WOLF TIMOTHY Commun ity disorders (20 callosities [address]9611 [facility] sources.) Translations: of [facility] [ - Callus of [place] (40291) foot L84, - Callus of foot L84] Coronary Coronary no information Active FLO COLEMAN Not Available emerson norman MD (78557) s and other s of heart disease unspecified (30 sources.) type of vessel, [place] or graft Translations: [ AORTOCORONARY BYPASS, PRESENCE OF AORTOCORONARY BYPASS GRAFT, ATHSCL HEART DISEASE OF [place] CORONARY , PRESENCE OF AORTOCORONARY BYPASS GRAFT, Atheroscleroti c heart disease of [place] coronary artery without angina pectoris, Atheroscleroti c heart disease of [place] coronary artery without angina pectoris, ATHSCL HEART DISEASE OF [place] CORONARY ] Other lower Cough Episodic Active WOLF TIMOTHY Commun ity respiratory Translations: [address] [place] [address] Center disease (20 [ - Cough R05] of [place] sources.) [place] (01120) Unclassified Decrease in Episodic Active WOLF TIMOTHY Co mmunity (20 sources.) appetite [address] [place] [address] Center Translations: of [facility] [ Poor [place] (04666) appetite, Poor appetite] Schizophrenia Delusional Chronic Active [facility] and other disorders [facility] of psychotic Translations: [place] disorders (20 [ OTHER [facility] (13221) sources.) SCHIZOPHRENIA] Abdominal Diaphragmatic Episodic Active SHANDA SAINI [facility] Via hernia (11 hernia without MD [facility] sources.) obstruction or Hospital - gangrene [place] (11693) Other Diarrhea, Episodic Active WOLF TIMOTHY Communi ty gastrointestin unspecified [address] [place] [address] Center al disorders Translations: of [facility] (20 sources.) [ - Diarrhea, [place] (74881) unspecified type R19.7, - Acute diarrhea R19.7, - Diarrhea, unspecified type R19.7, - Acute diarrhea R19.7] Fracture of Displaced Episodic Active KADY MATTHEWS VC V ia neck of femur intertrochante [facility] (hip) (17 [facility] fracture Hospital - sources.) of left femur, [place] initial (82964) encounter for closed fracture Translations: [ DISPL INTERTROCH FX L FEMUR, SUBS FOR CL] Residual Do not Episodic Active AILEEN MUNIZ VC Via codes; resuscitate DO Maddie unclassified Hospital - (25 sources.) [place] (20803) Other Dysphagia, Episodic Active WOLF TIMOTHY Commun ity gastrointestin oropharyngeal [address] [place] [address] al disorders phase of [facility] (20 sources.) Translations: [place] (42928) [ - Oropharyngeal dysphagia R13.12, - Oropharyngeal dysphagia R13.12] Other lower Dyspnea, Episodic Active MEI VC Via respiratory unspecified SERGIO MD [facility] disease (3 Hospital - sources.) [place] (84021) Other injuries Elevated urine Episodic Active WOLF SY N Community and conditions levels of [facility] due to drugs, of [facility] external medicaments [place] (28235) causes (20 and biological sources.) substances Translations: [ - Positive urine drug screen R82.5, - Positive urine drug screen R82.5] Other Essential and Chronic Active FLO COLEMAN [facility] Via hereditary and other MD [facility] degenerative specified Hospital - nervous system forms of [place] conditions (6 tremor (71816) sources.) Other Essential Chronic Active FRED GIBBONS [facility] Via hereditary and tremor MD [facility] degenerative Hospital - nervous system [place] conditions (16 (59066) sources.) External cause Fall from bed, Episodic Active KADY MATTHEWS VC Via codes: Fall initial MD [facility] (20 sources.) encounter Hospital - Translations: [place] [ - Fall from (72558) bed, sequela W06.XXXS, UNSPECIFIED FALL, INITIAL ENCOUNTER, UNSPECIFIED FALL, SUBSEQUENT ENCOUNTER] Other Falls Episodic Active WOLF TIMOTHY Communit y connective Translations: 45420 [facility] tissue disease [ Falling] of [facility] (10 sources.) [place] (14796) Residual Family history Episodic Active MEI [facility] Via codes; of ischemic SERGIO , MD [facility] unclassified heart disease Hospital - (18 sources.) and other [place] diseases of (02893) the circulatory system Other Flatulence Episodic Active WOLF TIMOTHY Commun ity gastrointestin Translations: 63293 [facility] al disorders [ - Flatulence of [facility] (20 sources.) R14.3, - [place] (55966) Flatulence R14.3] Other Functional Episodic Active WOLF TIMOTHY Commun ity disorders of dyspepsia [id number] [place] [address] stomach and Translations: of [facility] duodenum (17 [ - Dyspepsia [place] (97141) sources.) K30] Gastroduodenal Gastric ulcer, Chronic Active SHANDA SAINI [facility] Via ulcer (except unspecified as MD [facility] hemorrhage) acute or Hospital - (11 sources.) chronic, [place] without (27548) hemorrhage or perforation Gastritis and Gastritis, Episodic Active SHANDA SAINI , [facility] Via duodenitis (11 unspecified, MD [facility] sources.) without Hospital - bleeding [place] (01508) Headache; Headache Episodic Active FRED GIBBONS [facility] Via including , MD [facility] migraine (7 Hospital - sources.) [place] (09493) Unclassified Hypochondriasi Chronic Active [facility] (20 sources.) s 06668 Health Center Translations: of [facility] [ [place] (27457) Hypochondriasi s, Hypochondriasi s] Unclassified Hypochondriasi Chronic Active [facility] (20 sources.) s 91014 Health Center Translations: of [facility] [ - [place] (25282) 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, - 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] Other lower Hypoxemia Episodic Active AILEEN MUNIZ [facility] V ia respiratory DO Maddie disease (18 Hospital - sources.) [place] (30025) Other Indigestion Episodic Active WOLF TIMOTHY Commu nity disorders of Translations: 609[address] [facility] stomach and [ Dyspepsia] of [facility] duodenum (17 [place] (57586) sources.) Residual Insomnia Episodic Active WOLF TIMOTHY Communit y codes; Translations: [address] [place] [address] Center unclassified [ Insomnia, of [facility] (20 sources.) unspecified [place] (93997) type] Residual Insomnia, Episodic Active WOLF TIMOTHY Communi ty codes; unspecified [address] [place] [address] Center unclassified Translations: of [facility] (20 sources.) [ - Insomnia, [place] (62706) unspecified type G47.00] Residual Intermittent Chronic Active Doctor Community codes; confusion 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 [facility] of al disorders with [place] (20 sources.) constipation [facility] (54512) Open wounds of Laceration Episodic Active AILEEN MUNIZ V [facility] Via head; neck; without DO Maddie and trunk (7 foreign body Hospital - sources.) of left eyelid [place] and periocular (41920) area, initial encounter Pneumonia Lobar Episodic Active OLIMPIA DANGELO Via (except that pneumonia, DO Maddie caused by unspecified Hospital - tuberculosis organism [place] or sexually Translations: (95434) transmitted [ - Pneumonia disease) (20 due to sources.) infectious organism, unspecified laterality, unspecified part of lung J18.9] Other social services coordinator Episodic Active VAN GILLETTE Not Availa ble aftercare (23 (current) use (68207) sources.) of anticoagulants Other social services coordinator Episodic Active OLIMPIA DANGELO Via aftercare (8 (current) use DO Maddie sources.) of Hospital - antithrombotic [place] s/antiplatelet (27524) s Other longterm Episodic Active MEI Not Availabl e aftercare (21 (current) use MD SERGIO (36301) sources.) of aspirin Immunizations Need for Episodic Active KADY MATTHEWS , Not Available and screening prophylactic MD (74397) for infectious vaccination disease (25 and sources.) inoculation against influenza Translations: [ ENCOUNTER FOR IMMUNIZATION, NEED FOR PROPHYLACTIC VACCINATION AND INOCULATION AGAINST UNSPECIFIED SINGLE DISEASE] Acute Non-ST Chronic Active MELANY STOKES , [facility] Via myocardial elevation MD [facility] infarction (26 (NSTEMI) Hospital - sources.) myocardial [place] infarction (51099) Translations: [ SUBSEQUENT NON-ST ELEVATION (NSTEMI) [place]ASIA, NON-ST ELEVATION (NSTEMI) MYOCARDIAL INF] Occlusion or Occlusion and Chronic Active AILEEN MUNIZ [facility] Via stenosis of stenosis of DO Maddie precerebral unspecified Hospital - arteries (8 carotid artery [place] sources.) (37002) Other Oropharyngeal Episodic Active WOLF TIMOTHY Com munity gastrointestin dysphagia 12524 [facility] al disorders Translations: of [facility] (20 sources.) [ [place] (10136) Oropharyngeal dysphagia, Oropharyngeal dysphagia] Disorders of Other and Chronic Active BOB ARZATE Not Available lipid unspecified , (34547) metabolism (20 hyperlipidemia sources.) Translations: [ HYPERLIPIDEMIA , UNSPECIFIED, PURE HYPERCHOLESTER OLEM, OTHER AND UNSPECIFIED HYPERLIPIDEMIA , PURE HYPERCHOLESTER OLEMIA, UNSPECIFIED, OTHER AND UNSPECIFIED HYPERLIPIDEMIA ] Noninfectious Other and Episodic Active KADY MATTHEWS , [facility] Via gastroenteriti unspecified MD Maddie barry (7 sources.) noninfectious Hospital - gastroenteriti [place] s and colitis (95772) Nonspecific Other chest Episodic Active FLO COLEMAN [facility] Via chest pain (13 pain , MD [facility] sources.) Translations: Hospital - [ PRECORDIAL [place] PAIN] (33373) Other nervous Other chronic Chronic Active WOLF TIMOTHY Community system pain [address]955 [facility] disorders (20 Translations: of [place] sources.) [ - Other [place] (66126) chronic pain G89.29, - Other chronic pain G89.29] Deficiency and Other iron Episodic Active WOLF TIMOTHY C ommunity other anemia deficiency 59340 [facility] (20 sources.) anemias of [facility] Translations: [place] (53545) [ - Iron deficiency anemia secondary to inadequate dietary iron intake D50.8, - Iron deficiency anemia secondary to inadequate dietary iron intake D50.8] Other Other long Episodic Active MEI Not Availab le aftercare (20 term (current) MD SERGIO (84740) sources.) drug therapy Personality Other specific Chronic Active [facility] Hospi yoan disorders (11 personality [facility] of sources.) disorders [facility] (57354) Residual Other Episodic Active MEI 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] Attention-defi Other symptoms Episodic Active WOLF SY N Community cit conduct and signs 40587 Health Center and disruptive involving of [facility] behavior appearance and [place] (77312) disorders (20 behavior sources.) Translations: [ - Self-care deficit in patient living alone R46.89] Other Pain in left Episodic Active WOLF TIMOTHY Comm unity connective foot 97477 Health Center tissue disease Translations: of [facility] (20 sources.) [ - Pain of [place] (76849) left foot M79.672, - Pain of left foot M79.672] Other Pain in left Episodic Active WOLF TIMOTHY Comm unity connective leg 71373 Health Center tissue disease Translations: of [facility] (20 sources.) [ - Left leg [place] (57819) pain M79.605, - Left leg pain M79.605] Other Pain in right Episodic Active WOLF TIMOTHY Com munity connective foot 78684 Health Center tissue disease Translations: of [facility] (20 sources.) [ - Pain in [place] (38475) right foot M79.671, - Pain in right foot M79.671] Other Pain in right Episodic Active WOLF TIMOTHY Com munity non-traumatic hip 08300 Health Center joint Translations: of [facility] disorders (20 [ - Pain in [place] (15420) sources.) right hip M25.551, - Pain in right hip M25.551] Cardiac Palpitations no information Active MARK BANKS V [facility] Via dysrhythmias Translations: MD MARISSA [facility] (4 sources.) [ OTHER Hospital - SPECIFIED [place] CARDIAC (15193) ARRHYTHMIAS] Residual Patient's Episodic Active VAN GILLETTE VC Via codes; other LUCIUS [facility] unclassified noncompliance Hospital - (2 sources.) with [place] medication (67131) regimen Residual Personal Episodic Active FLO [facility]OMINGUE[facility]SE Via codes; history of , MD [facility] unclassified noncompliance Hospital - (2 sources.) with medical [place] treatment, (25541) presenting hazards to health Pleurisy; Pleural Episodic Active OLIMPIA DANGELO Via pneumothorax; effusion, not DO Maddie pulmonary elsewhere Hospital - collapse (29 classified [place] sources.) Translations: (50254) [ ATELECTASIS, PLEURAL EFFUSION, NOT ELSEWHERE CLASSIFI] Coronary Presence of Episodic Active OLIMPIA DANGELO V ia atherosclerosi aortocoronary DO Maddie s and other bypass graft Hospital - heart disease Translations: [place] (34 sources.) [ PRESENCE OF (52539) CORONARY ANGIOPLASTY IMPLANT, PRESENCE OF AORTOCORONARY BYPASS GRAFT, AORTOCORONARY BYPASS] Other Presence of Chronic Active SHANDA SAINI , 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 (96114) tissue disease joint, (30 sources.) bilateral Other Presence of Chronic Active VAN GILLETTE Not Avai lable connective right (17715) tissue disease artificial hip (22 sources.) joint Chronic ulcer Pressure ulcer Chronic Active WOLF TIMOTHY Community of skin (20 of right 84089 Health Center sources.) ankle, stage 2 of [facility] Translations: [place] (58623) [ - Pressure injury of right ankle, stage 2 L89.512, - Pressure injury of right ankle, stage 1 L89.511, - Pressure sore on ankle, right, unstageable L89.510] Unclassified Primary Chronic Active WOLF TIMOTHY Commu nity (20 sources.) insomnia 57786 Health Center Translations: of [facility] [ - Primary [place] (43798) insomnia F51.01, - Primary insomnia F51.01] Other Pruritus, Episodic Active OLIMPIA DANGELO Via inflammatory unspecified DO [facility] condition of Hospital - skin (7 [place] sources.) (15667) Other skin Rash and other Episodic Active WOLF TIMOTHY C ommunity disorders (20 nonspecific 41066 Health Center sources.) skin eruption of [facility] Translations: [place] (47364) [ - Rash 782.1, - Rash 782.1] Other Repeated falls Episodic Active AILEEN MUNIZ Not Available connective Translations: (18234) tissue disease [ - Falling (32 sources.) R29.6] Other Restless legs Chronic Active WOLF TIMOTHY Com munity hereditary and Translations: 88811 Health Center degenerative [ Restless of [facility] nervous system legs] [place] (20039) conditions (20 sources.) Other Restless legs Chronic Active WOLF TIMOTHY Com munity hereditary and syndrome [id number] [place] [address] Center degenerative Translations: of [facility] nervous system [ - Restless [place] (24926) conditions (20 legs G25.81] sources.) Residual Restlessness Chronic Active FRANCE NAVARRO [facility] V ia codes; and agitation MD [facility] unclassified Hospital - (9 sources.) [place] (17352) Heart valve Rheumatic Chronic Active MELANY STOKES , [facility] Vi a disorders (18 disorders of MD [facility] sources.) both mitral Hospital - and tricuspid [place] valves (51491) Translations: [ RHEUMATIC TRICUSPID INSUFFICIENCY] Other Rosacea Chronic Active WOLF TIMOTHY Communit y inflammatory Translations: 10745 Health Center condition of [ Acne of [facility] skin (20 rosacea, Acne [place] (14609) sources.) rosacea] Other lower Shortness of Episodic Active MEI [facility] Via respiratory breath MD Maddie HILL disease (14 Hospital - sources.) [place] (64841) Other Slow transit Episodic Active WOLF TIMOTHY Comm unity gastrointestin constipation 95156 [facility] al disorders Translations: of [facility] (20 sources.) [ Slow transit [place] (86769) constipation, Slow transit constipation] Other Slow transit Episodic Active WOLF TIMOTHY Comm unity gastrointestin constipation [id number] [place] [address] al disorders Translations: of [facility] (20 sources.) [ - Slow [place] (76939) transit constipation K59.01, - Slow transit constipation K59.01] Other nervous Tremor, Episodic Active WOLF TIMOTHY Comm unity system unspecified 56451 Health Center disorders (20 Translations: of [place] sources[place] [ - Tremor [place] (23446) R25.1, - Tremor R25.1] Other injuries Unspecified Episodic Active KADY MATTHEWS [facility] Via and conditions injury of MD Maddie due to head, initial Hospital - external encounter [place] causes (2 (08100) sources.) Other injuries Unspecified Episodic Active FRANCE NAVARRO V CH Via and conditions injury of MD [facility] due to head, Hospital - external subsequent [place] causes (9 encounter (65824) sources.) Osteoarthritis Unspecified Chronic Active MEI Not A vailable (26 sources.) osteoarthritis MD SERGIO (71225) , unspecified site Translations: [ PRIMARY OSTEOARTHRITIS , UNSPECIFIED SITE] Nutritional Vitamin D Chronic Active AILEEN MUNIZ Not Sarah ilable deficiencies deficiency, (04908) (31 sources.) unspecified Translations: [ UNSPECIFIED VITAMIN D DEFICIENCY] Past or Other Problems Problem Normalized Date Last Normalized Normalized Provider Fa cility Classification Problem(s) Recorded Problem Problem Sta tus Duration Other Adult failure Episodic Completed AILEEN MUNIZ Not A vailable nutritional; to thrive (67297) endocrine; and metabolic disorders (4 sources.) Unclassified Chronic pain no information no information AILEEN G ARNER Not Available (11 sources.) (31080) Other Long-term Episodic Completed AILEEN MUNIZ Not Avail able aftercare (8 (current) use (65843) sources.) of anticoagulants Other Loss of weight Episodic Completed AILEEN MUNIZ Not Available nutritional; (77672) endocrine; and metabolic disorders (5 sources.) Unclassified MAJOR DEP no information no information [facility] (1 source.) [facility] (19251) Other Other Episodic Completed AILEEN MUNIZ Not Availa ble gastrointestin constipation (50689) al disorders (2 sources.) Other Other Episodic Completed AILEEN MUNIZ Not Availa ble gastrointestin constipation (42126) al disorders (20 sources.) Residual Other no information no information MEI Not Available codes; specified MD SERGIO (47175) unclassified postprocedural (1 source.) states Other Other symptoms Episodic Completed AILEEN MUNIZ Not Available connective involving (87241) tissue disease nervous and (6 sources.) musculoskeleta l systems Disorders of Pure no information no information MEI Not Available lipid hypercholester MD SERGIO (07962) metabolism (21 olemia, sources.) unspecified External Shop no information no information KADY MATTHEWS , Not Available Injury - Place (commercial) (03692) of occurrence as the place (18 sources.) of occurrence of the external cause Translations: [ BEDROOM IN JAIL PLACE] External Unspecified no information no information KADY Cobb , Not Available Injury - Fall fall, initial MD (11908) (20 sources.) encounter Translations: [ UNSPECIFIED FALL, SUBSEQUENT ENCOUNTER, FALL FROM BED, INITIAL ENCOUNTER, - Fall from bed, sequela W06.XXXS] Other injuries Unspecified no information no information KADY MATTHEWS , Not Available and conditions injury of MD (07141) due to head, initial external encounter causes (6 sources.) Unclassified VASCULAR D no information no information [facility] (1 source.) [facility] ([id number]) Procedures Procedure Normalized Procedure Procedure Result Performer Facility Date 02-05-2014 Assay of thyroid no information no name [facility] stimulating hormone [facility] ([id number]) 02-14-2015 Blood count complete no information no name [facility] auto&auto difrntl wbc [facility] ([id number]) 02-05-2014 Blood count complete no information no name [facility] auto&auto difrntl wbc [facility] ([id number]) 02-14-2015 Collection venous no information no name [facility] blood venipuncture [facility] ([id number]) 02-05-2014 Collection venous no information no name [facility] blood venipuncture [facility] ([id number]) 02-14-2015 Comprehensive no information no name [facility] metabolic panel [facility] ([id number]) 02-05-2014 Comprehensive no information no name [facility] metabolic panel [facility] ([id number]) 12-03-2017 FQHC visit, estab pt no information no name [facility] ([id number]) 08-28-2018 LAB NOT BILLED BY no information no name [facility] ([id number]) 02-14-2015 Lipid panel no information no name [facility] ([id number]) 02-05-2014 Lipid panel no information no name [facility] ([id number]) 05-04-2014 Mammogram, screening no information no name [facility] ([id number]) 10-18-2014 Noninvasive ear/pulse no information no [facility] single [facility] ([id number]) 04-28-2016 REPOSITION LEFT UPPER no information no name [facility] INTRAME [facility] ([id number]) REPOSITION LEFT UPPER no information no name Not Avai lable ([id number]) FEMUR WITH INTRAME Immunizations Normalized Immunization Date Notes Care Provider Facili ty Immunization tetanus toxoid, 02-11-2019 no information no name Not Sarah ilable reduced diphtheria ([id number]) toxoid, and acellular pertussis vaccine, adsorbed ADMN FLU VAC NO FEE 01-20-2014 no information [facility] SAME DAY [facility] ([id number]) Results Test Name Value Interpretation Reference Range Date Time Fa cility (Normalized) (Normalized) (Medline Reference) laboratory on 2020-03-24 Albumin BCG dye 3.5 (L) 03-24-2020 Hospital [Mass/Vol] 01: [address] ([id number]) ALP [Catalytic 64 U/L (no code) 44 - 147 U/L 03-24-2020 Hosp ital activity/Vol] : [address] (17566) ALT [Catalytic 6 U/L (no code) 4 - 40 U/L 03-24-2020 Hospit al activity/Vol] 01: [address] (29892) Anion gap 11 mmol/L (no code) 3 - 11 mmol/L 03-24-2020 Hospital [Moles/Vol] 01: [facility] (11878) AST [Catalytic 13 U/L (no code) 10 - 34 U/L 03-24-2020 Hospi yoan activity/Vol] 01: [facility] (65142) Basophils (Bld) 0.0 10*3/uL (no code) 0 - 0.3 10*3/uL 03-24-2020 Hospital [#/Vol] 01: [facility] (99635) Basophils/100 0.40 % (no code) 0.5 - 1 % 03-24-2020 Hospital WBC (Bld) 01: [facility] (46732) Bilirubin 0.4 mg/dL (no code) 0.1 - 1.2 mg/dL 03-24-2020 Hospit al [Mass/Vol] 01: [facility] (17792) Calcium 8.5 mg/dL (no code) 8.5 - 10.2 mg/dL 03-24-2020 Hospi yoan [Mass/Vol] 01: [facility] () Chloride 105 mmol/L (no code) 95 - 106 mmol/L 03-24-2020 Hospi yoan [Moles/Vol] 01: [facility] () Creatinine 0.73 mg/dL (no code) 03-24-2020 Hospital [Mass/Vol] 01: [facility] () Eosinophils 0.1 10*3/uL (no code) 0.05 - 0.5 03-24-2020 Hospita l (Bld) [#/Vol] 10*3/uL 01: [facility] () Eosinophils/100 2.3 % (no code) 1 - 4 % 03-24-2020 Hospit al WBC (Bld) : [facility] () Erythrocyte 16.7 % (H) 11.6 - 14.6 % 03-24-2020 Hospit al distribution : [facility] width (RBC) [facility] [Ratio] (80621) GFR/1.73 sq 77 (no code) 90 - 120 03-24-2020 Hospital M.predicted MDRD mL/min/{1.73_m2} mL/min/{1.73_m2} 01: [facility] (S/P/Bld) [Vol [facility] rate/Area] (53929) Globulin (S) 2.0 g/dL (L) 2 - 3.5 g/dL 03-24-2020 Hospit al [Mass/Vol] 01: [facility] () Glucose 96 mg/dL (no code) 60 - 125 mg/dL 04-23-2020 Hospita l [Mass/Vol] 01: [facility] (19977) HCO3 (P) 21 (L) 03-24-2020 Hospital [Moles/Vol] 01: [facility] (74885) Hematocrit (Bld) 30.6 % (L) 36.1 - 50.3 % 03-24-2020 H ospital [Volume 01: [facility] fraction] [facility] (21328) Hemoglobin (Bld) 10.6 g/dL (L) 12.1 - 17.2 g/dL 03-24-2020 Hospital [Mass/Vol] 01: [facility] (48904) Lymphocytes 1.26 10*3/uL (no code) 0.9 - 2.9 03-24-2020 Hospita l (Bld) [#/Vol] 10*3/uL 01: [facility] (42731) Lymphocytes/100 26.6 % (no code) 20 - 40 % 03-24-2020 Hospit al WBC (Bld) 01: [facility] (52163) MCH (RBC) 30.9 pg (no code) 27 - 31 pg 03-24-2020 Hospital [Entitic mass] : [facility] (81334) MCHC (RBC) 34.6 g/dL (no code) 32 - 36 g/dL 03-24-2020 Hospital [Mass/Vol] : [facility] (37426) MCV (RBC) 89.2 fL (no code) 80 - 100 fL 03-24-2020 Hospital [Entitic vol] 01: [facility] (75205) Monocytes (Bld) 0.9 10*3/uL (no code) 0.3 - 0.9 03-24-2020 Hosp ital [#/Vol] 10*3/uL 01: [facility] (26651) Monocytes/100 18.0 % (H) 2 - 8 % 03-24-2020 Hospital WBC (Bld) : [facility] (00459) Neutrophils 2.49 10*3/uL (no code) 1.7 - 7 10*3/uL 03-24-2020 H ospital (Bld) [#/Vol] 01: [facility] (71026) Neutrophils/100 52.7 % (no code) 40 - 60 % 03-24-2020 Hospit al WBC (Bld) : [facility] (57150) Osmolality Calc 276 (L) 03-24-2020 Hospital [Osmolality] : [facility] (01770) Platelet mean 11.1 fL (H) 7.2 - 11.7 fL 03-24-2020 Hosp ital volume (Bld) : [facility] [Entitic vol] [facility] (66204) Platelets (Bld) 214 10*3/uL (no code) 150 - 450 03-24-2020 Hosp ital [#/Vol] 10*3/uL 01: [facility] (13861) Potassium 4.2 mmol/L (no code) 3.7 - 5.2 mmol/L 03-24-2020 Hosp ital [Moles/Vol] : [facility] (48581) Protein 5.5 g/dL (L) 6.4 - 8.3 g/dL 03-24-2020 Hospita l [Mass/Vol] : [facility] (52642) RBC (Bld) 3.43 10*6/uL (L) 4.2 - 6.1 03-24-2020 Hospital [#/Vol] 10*6/uL : [facility] (25584) Sodium 133 mmol/L (L) 135 - 145 mmol/L 03-24-2020 Hosp ital [Moles/Vol] : [facility] (63186) Urea nitrogen 15 mg/dL (no code) 7 - 20 mg/dL 03-24-2020 Hospi yoan [Mass/Vol] : [facility] (30496) WBC (Bld) 4.73 10*3/uL (L) 3.5 - 10.5 03-24-2020 Hospital [#/Vol] 10*3/uL 01: [facility] (97210) laboratory on 2020-03-20 Anion gap 13 mmol/L (no code) 3 - 11 mmol/L 03-20-2020 Hospital [Moles/Vol] 01: [facility] (74678) Calcium 9.0 mg/dL (no code) 8.5 - 10.2 mg/dL 03-20-2020 Hospi yoan [Mass/Vol] : [facility] () Chloride 100 mmol/L (no code) 95 - 106 mmol/L 03-20-2020 Hospi yoan [Moles/Vol] : [facility] () Creatinine 0.66 mg/dL (no code) 03-20-2020 Hospital [Mass/Vol] : [facility] () GFR/1.73 sq 86 (no code) 90 - 120 03-20-2020 Hospital M.predicted MDRD mL/min/{1.73_m2} mL/min/{1.73_m2} : [facility] (S/P/Bld) [Vol [facility] rate/Area] (72072) Glucose 85 mg/dL (no code) 60 - 125 mg/dL 03-20-2020 Hospita l [Mass/Vol] : [facility] (60719) HCO3 (P) 24 (no code) 03-20-2020 Hospital [Moles/Vol] 01: [facility] (38893) Natriuretic 852.40 pg/mL (H) 0 - 100 pg/mL 03-20-2020 Hos pital peptide B (Bld) : [facility] [Mass/Vol] [facility] (76970) Osmolality Calc 273 (L) 03-20-2020 Hospital [Osmolality] : [facility] (00855) Potassium 4.7 mmol/L (no code) 3.7 - 5.2 mmol/L 03-20-2020 Hosp ital [Moles/Vol] 01:000400 [facility] (69828) Sodium 132 mmol/L (L) 135 - 145 mmol/L 03-20-2020 Hosp ital [Moles/Vol] 01:000400 [facility] (87100) Urea nitrogen 13 mg/dL (no code) 7 - 20 mg/dL 03-20-2020 Hospi yoan [Mass/Vol] 01:00 [facility] (17469) laboratory on 2020-03-18 Cholesterol 173 mg/dL (no code) 180 - 200 mg/dL 03-18-2020 Hosp ital [Mass/Vol] : [facility] (85785) Cholesterol in 47 mg/dL (no code) 03-18-2020 Hospital HDL [Mass/Vol] : [facility] (70805) Cholesterol in 106 mg/dL (H) 0 - 100 mg/dL 03-18-2020 Hos pital LDL [Mass/Vol] : [facility] (60514) Cholesterol in 20 mg/dL (no code) 03-18-2020 Hospital VLDL [Mass/Vol] :040 [facility] (94559) Cholesterol.tota 3.7 {ratio} (no code) 03-18-2020 Hospital l/Cholesterol in : [facility] HDL [Mass ratio] [facility] (45383) Triglyceride 100 mg/dL (no code) 0 - 150 mg/dL 03-18-2020 Hospi yoan [Mass/Vol] :20040 [facility] (37101) not yet categorized on 2020-03-17 CULTURE SOURCE cath urine (no code) 03-17-2020 Hospital 22:35-0400 [facility] (82765) Electrocardiogra Complete (no code) 03-17-2020 Hospital ms recorded 11: [facility] (90468) FINAL CULTURE Negative (no code) 03-17-2020 Hospital RESULTS 11:12 [facility] (51956) FINAL CULTURE No Growth 48 (no code) 03-17-2020 Hospital RESULTS hours 22:35-0400 [facility] (82958) PRELIM CULTURE No Growth 24 (no code) 03-17-2020 Hospital RESULTS hours 22:35-0400 [facility] (24494) Urine Volume Urine Volume (no code) 03-17-2020 Hospital Sufficient 22:35-0400 [facility] (10mL) [facility] (38337) no information Culture to (A) 03-17-2020 Hospital follow; cath 22:35 [facility] urine [facility] (16419) laboratory on 2020-03-17 Albumin BCG dye 4.0 (no code) 03-17-2020 Hospital [Mass/Vol] 11: [facility] (38663) ALP [Catalytic 74 U/L (no code) 44 - 147 U/L 03-17-2020 Hosp ital activity/Vol] 11: [facility] (72637) ALT [Catalytic 10 U/L (no code) 4 - 40 U/L 03-17-2020 Hospit al activity/Vol] 11:12 [facility] (69359) Amphetamines Ql Negative (no code) 03-17-2020 Hospital (U) 22:35 [facility] (27587) Anion gap 13 mmol/L (no code) 3 - 11 mmol/L 03-17-2020 Hospital [Moles/Vol] 11:12 [facility] (33533) AST [Catalytic 16 U/L (no code) 10 - 34 U/L 03-17-2020 Hospi yoan activity/Vol] 11:12 [facility] (79996) Bacteria LM Ql Negative (no code) 03-17-2020 Hospital (Urine sed) : [facility] (48832) Barbiturates Negative (no code) 03-17-2020 Hospital Screen Ql (U) :35 [facility] (96947) Basophils (Bld) 0.0 10*3/uL (no code) 0 - 0.3 10*3/uL 03-17-2020 Hospital [#/Vol] 11:12 [facility] (32037) Basophils/100 0.20 % (no code) 0.5 - 1 % 03-17-2020 Hospital WBC (Bld) 11: [facility] (90863) Benzodiazepine Negative (no code) 03-17-2020 Hospital metabolites 22:35040 [facility] Screen Ql (U) [facility] (05522) Bilirubin 0.3 mg/dL (no code) 0.1 - 1.2 mg/dL 03-17-2020 Hospit al [Mass/Vol] 11: [facility] () Bilirubin N/A (A) 03-17-2020 Hospital Confirm Ql (U) : [facility] () Bilirubin Ql (U) Negative (no code) 03-17-2020 Hospital 22:35 [facility] () Calcium 8.8 mg/dL (no code) 8.5 - 10.2 mg/dL 03-17-2020 Hospi yoan [Mass/Vol] 11: [facility] (46033) Carboxy Negative (no code) 03-17-2020 Hospital tetrahydrocannab : [facility] inol Ql (U) [facility] (01813) Chloride 97 mmol/L (no code) 95 - 106 mmol/L 03-17-2020 Hospit al [Moles/Vol] 11: [facility] (22097) CK [Catalytic 67 U/L (no code) 03-17-2020 Hospital activity/Vol] 11: [facility] (61859) CK.MB [Mass/Vol] 2.2 ng/mL (no code) 0 - 4.3 ng/mL 03-17-2020 H ospital 11: [facility] (31033) Clarity (U) Clear (no code) 03-17-2020 Hospital 22:350400 [facility] (62257) Cocaine Ql (U) Negative (no code) 03-17-2020 Hospital 22:350 [facility] (21664) Color (U) Yellow (no code) 03-17-2020 Hospital 22:350400 [facility] (17609) Creatinine 1.01 mg/dL (no code) 03-17-2020 Hospital [Mass/Vol] 11: [facility] (16094) Eosinophils 0.1 10*3/uL (no code) 0.05 - 0.5 03-17-2020 Hospita l (Bld) [#/Vol] 10*3/uL 11: [facility] (49641) Eosinophils/100 1.8 % (no code) 1 - 4 % 03-17-2020 Hospit al WBC (Bld) 11: [facility] (31249) Epithelial 0-2/HPF (A) 03-17-2020 Hospital cells.squamous 22:35 [facility] LM.HPF (Urine [facility] sed) [#/Area] (41515) Erythrocyte 15.6 % (H) 11.6 - 14.6 % 03-17-2020 Hospit al distribution 11: [facility] width (RBC) [facility] [Ratio] (47855) Ethanol Ql (U) <10.00 (L) 03-17-2020 Hospital 22:35 [facility] (28607) GFR/1.73 sq 53 (L) 90 - 120 03-17-2020 Hospital M.predicted MDRD mL/min/{1.73_m2} mL/min/{1.73_m2} 11: [facility] (S/P/Bld) [Vol [facility] rate/Area] (05418) Globulin (S) 2.8 g/dL (no code) 2 - 3.5 g/dL 03-17-2020 Hospit al [Mass/Vol] 11: [facility] (49716) Glucose 74 mg/dL (no code) 60 - 125 mg/dL 03-17-2020 Hospita l [Mass/Vol] 11: [facility] (86590) Glucose Test Negative (no code) 03-17-2020 Hospital strip (U) 22:35-0400 [facility] [Mass/Vol] [facility] (66758) HCO3 (P) 25 (no code) 03-17-2020 Hospital [Moles/Vol] 11: [facility] (98147) Hematocrit (Bld) 36.2 % (no code) 36.1 - 50.3 % 03-17-2020 H ospital [Volume 11: [facility] fraction] [facility] (54915) Hemoglobin (Bld) 12.3 g/dL (L) 12.1 - 17.2 g/dL 03-17-2020 Hospital [Mass/Vol] 11: [facility] (43809) Hemoglobin Ql Negative (no code) 03-17-2020 Hospital (U) 22:35-0400 [facility] (34035) Ketones (U) Negative (no code) 03-17-2020 Hospital [Mass/Vol] 22:35-0400 [facility] (09542) Leukocyte Negative (no code) 03-17-2020 Hospital esterase Test 22:350400 [facility] strip Ql (U) [facility] (24996) Lymphocytes 0.98 10*3/uL (no code) 0.9 - 2.9 03-17-2020 Hospita l (Bld) [#/Vol] 10*3/uL 11: [facility] (43561) Lymphocytes/100 15.9 % (no code) 20 - 40 % 03-17-2020 Hospit al WBC (Bld) 11: [facility] (08674) MCH (RBC) 30.4 pg (no code) 27 - 31 pg 03-17-2020 Hospital [Entitic mass] 11: [facility] (77908) MCHC (RBC) 34.0 g/dL (no code) 32 - 36 g/dL 03-17-2020 Hospital [Mass/Vol] 11:12 [facility] (87478) MCV (RBC) 89.4 fL (no code) 80 - 100 fL 03-17-2020 Hospital [Entitic vol] 11:12 [facility] (75016) Methylenedioxyme Negative (no code) 03-17-2020 Hospital thamphetamine 22: [facility] Screen Ql (U) [facility] (04152) Monocytes (Bld) 0.7 10*3/uL (no code) 0.3 - 0.9 03-17-2020 Hosp ital [#/Vol] 10*3/uL 11: [facility] (11983) Monocytes/100 11.2 % (no code) 2 - 8 % 03-17-2020 Hospital WBC (Bld) 11: [facility] (03467) Myoglobin 40.4 ng/mL (no code) 03-17-2020 Hospital [Mass/Vol] 11: [facility] (54536) Natriuretic 412.70 pg/mL (H) 0 - 100 pg/mL 03-17-2020 Hos pital peptide B (Bld) 11: [facility] [Mass/Vol] [facility] (31994) Neutrophils 4.38 10*3/uL (no code) 1.7 - 7 10*3/uL 03-17-2020 H ospital (Bld) [#/Vol] 11: [facility] (84790) Neutrophils/100 70.9 % (no code) 40 - 60 % 03-17-2020 Hospit al WBC (Bld) 11: [facility] (27236) Nitrite Ql (U) Negative (no code) 03-17-2020 Hospital 22:35 [facility] (39870) Opiates Screen Negative (no code) 03-17-2020 Hospital Ql (U) :35 [facility] (62960) Osmolality Calc 269 (L) 03-17-2020 Hospital [Osmolality] 11: [facility] (65331) Oxycodone Ql (U) Negative (no code) 03-17-2020 Hospital 22:350400 [facility] (49453) pH (U) 5.5 [pH] (no code) 4.6 - 8 [pH] 03-17-2020 Hospital 22:35040 [facility] () Phencyclidine Ql Negative (no code) 03-17-2020 Hospital (U) 22:35040 [facility] (41582) Platelet mean 11.8 fL (H) 7.2 - 11.7 fL 03-17-2020 Hosp ital volume (Bld) 11: [facility] [Entitic vol] [facility] () Platelets (Bld) 246 10*3/uL (no code) 150 - 450 03-17-2020 Hosp ital [#/Vol] 10*3/uL 11: [facility] () Potassium 3.8 mmol/L (no code) 3.7 - 5.2 mmol/L 03-17-2020 Hosp ital [Moles/Vol] 11: [facility] () Propoxyphene Ql Negative (no code) 03-17-2020 Hospital (U) 22:35 [facility] () Protein (U) Negative (no code) 0 - 20 mg/dL 03-17-2020 Hospita l [Mass/Vol] :350400 [facility] () Protein 6.8 g/dL (no code) 6.4 - 8.3 g/dL 03-17-2020 Hospita l [Mass/Vol] 11: [facility] () RBC (Bld) 4.05 10*6/uL (no code) 4.2 - 6.1 03-17-2020 Hospital [#/Vol] 10*6/uL 11: [facility] () RBC LM.HPF 0-2/HPF (A) 03-17-2020 Hospital (Urine sed) 22:35 [facility] [#/Area] [facility] (49321) Sodium 131 mmol/L (L) 135 - 145 mmol/L 03-17-2020 Hosp ital [Moles/Vol] 11:12-0400 [facility] (77696) Specific gravity <=1.005 (A) 03-17-2020 Hospital (U) [Rel 22:350400 [facility] density] [facility] (36721) Tricyclic Negative (no code) 03-17-2020 Hospital antidepressants 22:35-0400 [facility] Ql (U) [facility] (78459) Troponin ng/mL (no code) 0 - 0.4 ng/mL 03-17-2020 Hospital I.cardiac 11: [facility] [Mass/Vol] [facility] (03180) TSH Qn 2.26 (no code) 03-17-2020 Hospital 11: [facility] (63331) Urea nitrogen 9 mg/dL (no code) 7 - 20 mg/dL 03-17-2020 Hospi yoan [Mass/Vol] 11:12 [facility] (98271) Urobilinogen Qn 0.2 (no code) 03-17-2020 Hospital (U) 22:350400 [facility] (02789) WBC (Bld) 6.17 10*3/uL (no code) 3.5 - 10.5 03-17-2020 Hospital [#/Vol] 10*3/uL 11:120 [facility] (02427) WBC LM.HPF 0-2/HPF (A) 03-17-2020 Hospital (Urine sed) 22:35-0400 [facility] [#/Area] [facility] (00807) thyroid on 2017-03-09 Free T4 1.11 ng/dL (no code) 0.9 - 2.2 ng/dL 03-09-2017 Not A vailable [Mass/Vol] 05:48-0400 (96864) TSH Qn 0.87 (no code) 03-09-2017 Not Available 05:480 (89768) other on 2017-03-09 25-Hydroxyvitami 17.00 (L) 03-09-2017 Not Avail able n 05:480400 (36490) D2+25-Hydroxyvit menendez D3 [Mass/Vol] Albumin BCG dye 4.2 (no code) 03-09-2017 Not Availa ble [Mass/Vol] 05:48-0400 (11868) Cholesterol in 13 mg/dL (no code) 03-09-2017 Not Availab le VLDL [Mass/Vol] 05:48-0400 (45830) Cholesterol.tota 3.7 {ratio} (no code) 03-09-2017 Not Avail able l/Cholesterol in 05:48-0400 (83089) HDL [Mass ratio] Cobalamin 1135.00 pg/mL (H) 200 - 900 pg/mL 03-09-2017 No t Available (Vitamin B12) 05:48-0400 (89562) [Mass/Vol] Electrocardiogra Complete (no code) 03-09-2017 Not Avail able ms recorded 05:48-0400 (43537) Erythrocyte 13.1 % (no code) 11.6 - 14.6 % 03-09-2017 Not Av ailable distribution 05:48-0400 (16734) width (RBC) [Ratio] FINAL CULTURE Negative (no code) 03-09-2017 Not Availabl e RESULTS 05:48-0400 (84794) Folate (Bld) 18.90 (no code) 03-09-2017 Not Available [Mass/Vol] 05:48-0400 (40614) GFR/1.73 sq 71 (no code) 90 - 120 03-09-2017 Not Availa ble M.predicted MDRD mL/min/{1.73_m2} mL/min/{1.73_m2} 05:48-0400 (75748) (S/P/Bld) [Vol rate/Area] Globulin (S) 2.6 g/dL (no code) 2 - 3.5 g/dL 03-09-2017 Not Av ailable [Mass/Vol] 05:48-0400 (38909) HCO3 (P) 24 (no code) 03-09-2017 Not Available [Moles/Vol] 05:48-0400 (69064) Iron binding 296 (no code) 03-09-2017 Not Available capacity 05:48-0400 (18413) [Mass/Vol] Iron binding 237 (no code) 03-09-2017 Not Available capacity.unsatur 05:48-0400 (43332) ated [Mass/Vol] Iron/Iron 16.54 (no code) 03-09-2017 Not Available binding 05:48-0400 (03101) capacity.total [Mass Ratio] in Serum or Plasma MCHC (RBC) 33.3 g/dL (no code) 32 - 36 g/dL 03-09-2017 Not Avai lable [Mass/Vol] 05:48-0400 (11675) MEDIA PLATED Setup at 06:09 (no code) 03-09-2017 Not Availa ble on 03/09/2017 05:48-0400 (43710) Osmolality Calc 296 (H) 03-09-2017 Not Availa ble [Osmolality] 05:48-0400 (04281) Platelet mean 11.4 fL (H) 7.2 - 11.7 fL 03-09-2017 Not Available volume (Bld) 05:480400 (99172) [Entitic vol] metabolic panel on 2017-03-09 ALP [Catalytic 58 U/L (no code) 44 - 147 U/L 03-09-2017 Not Available activity/Vol] 05:480400 (14984) ALT [Catalytic 15 U/L (no code) 4 - 40 U/L 03-09-2017 Not Av ailable activity/Vol] 05:480400 (17674) Anion gap 17 mmol/L (H) 3 - 11 mmol/L 03-09-2017 Not Avai lable [Moles/Vol] 05:480400 (74686) AST [Catalytic 22 U/L (no code) 10 - 34 U/L 03-09-2017 Not A vailable activity/Vol] 05:480400 (38464) Bilirubin 0.8 mg/dL (no code) 0.1 - 1.2 mg/dL 03-09-2017 Not Av ailable [Mass/Vol] 05:480400 (40362) Calcium 9.5 mg/dL (no code) 8.5 - 10.2 mg/dL 03-09-2017 Not A vailable [Mass/Vol] 05:480400 ([id number]) Chloride 105 mmol/L (no code) 95 - 106 mmol/L 03-09-2017 Not A vailable [Moles/Vol] 05:480400 (70884) Creatinine 0.79 mg/dL (no code) 03-09-2017 Not Available [Mass/Vol] 05:48-0400 (90147) Glucose 73 mg/dL (no code) 60 - 125 mg/dL 03-09-2017 Not Sarah ilable [Mass/Vol] 05:48-0400 ([id number]) Iron [Mass/Vol] 49 ug/dL (L) 60 - 170 ug/dL 03-09-2017 N ot Available 05:480400 ([id number]) Potassium 4.4 mmol/L (no code) 3.7 - 5.2 mmol/L 03-09-2017 Not Available [Moles/Vol] 05:480400 ([id number]) Protein 6.8 g/dL (no code) 6.4 - 8.3 g/dL 03-09-2017 Not Sarah ilable [Mass/Vol] 05:480400 ([id number]) Sodium 142 mmol/L (no code) 135 - 145 mmol/L 03-09-2017 Not Available [Moles/Vol] 05:480400 ([id number]) Urea nitrogen 26 mg/dL (H) 7 - 20 mg/dL 03-09-2017 Not A vailable [Mass/Vol] 05:48-0400 ([id number]) hematology on 2017-03-09 Basophils (Bld) 0.0 10*3/uL (no code) 0 - 0.3 10*3/uL 03-09-2017 Not Available [#/Vol] 05:48-0400 ([id number]) Basophils/100 0.30 % (no code) 0.5 - 1 % 03-09-2017 Not Avai lable WBC (Bld) 05:480400 ([id number]) Eosinophils 0.1 10*3/uL (no code) 0.05 - 0.5 03-09-2017 Not Sarah ilable (Bld) [#/Vol] 10*3/uL 05:48-0400 ([id number]) Eosinophils/100 0.8 % (no code) 1 - 4 % 03-09-2017 Not Av ailable WBC (Bld) 05:480400 ([id number]) Hematocrit (Bld) 42.0 % (no code) 36.1 - 50.3 % 03-09-2017 N ot Available [Volume 05:48 (10934) fraction] Hemoglobin (Bld) 14.0 g/dL (no code) 12.1 - 17.2 g/dL 03-09-2017 Not Available [Mass/Vol] 05:48-0400 ([id number]) Lymphocytes 2.52 10*3/uL (no code) 0.9 - 2.9 03-09-2017 Not Sarah ilable (Bld) [#/Vol] 10*3/uL 05:48-0400 ([id number]) Lymphocytes/100 35.1 % (no code) 20 - 40 % 03-09-2017 Not Av ailable WBC (Bld) 05:48-0400 ([id number]) MCH (RBC) 31.3 pg (H) 27 - 31 pg 03-09-2017 Not Availab le [Entitic mass] 05:48-0400 ([id number]) MCV (RBC) 94.0 fL (no code) 80 - 100 fL 03-09-2017 Not Availa ble [Entitic vol] 05:48-0400 ([id number]) Monocytes (Bld) 0.9 10*3/uL (no code) 0.3 - 0.9 03-09-2017 Not Available [#/Vol] 10*3/uL 05:48-0400 ([id number]) Monocytes/100 12.1 % (H) 2 - 8 % 03-09-2017 Not Avai lable WBC (Bld) 05:48-0400 ([id number]) Neutrophils 3.71 10*3/uL (no code) 1.7 - 7 10*3/uL 03-09-2017 N ot Available (Bld) [#/Vol] 05:48-0400 ([id number]) Neutrophils/100 51.7 % (no code) 40 - 60 % 03-09-2017 Not Av ailable WBC (Bld) 05:48-0400 ([id number]) Platelets (Bld) 240 10*3/uL (no code) 150 - 450 03-09-2017 Not Available [#/Vol] 10*3/uL 05:48-0400 ([id number]) RBC (Bld) 4.47 10*6/uL (no code) 4.2 - 6.1 03-09-2017 Not Avail able [#/Vol] 10*6/uL 05:48-0400 ([id number]) WBC (Bld) 7.18 10*3/uL (no code) 3.5 - 10.5 03-09-2017 Not Avai lable [#/Vol] 10*3/uL 05:48-0400 ([id number]) cardiac on 2017-03-09 Cholesterol 231 mg/dL (no code) 180 - 200 mg/dL 03-09-2017 Not Available [Mass/Vol] 05:48-0400 ([id number]) Cholesterol in 63 mg/dL (no code) 03-09-2017 Not Availab le HDL [Mass/Vol] 05:48-0400 ([id number]) Cholesterol in 155 mg/dL (H) 0 - 100 mg/dL 03-09-2017 Not Available LDL [Mass/Vol] 05:48-0400 ([id number]) Triglyceride 66 mg/dL (no code) 0 - 150 mg/dL 03-09-2017 Not A vailable [Mass/Vol] 05:48-0400 ([id number]) Vital Signs Vital Sign Value Interpretation Reference Date Time Care [facility] (Normalized) (Normalized) Range Body height 162.56 cm (no code) cm 01-03-2015 [facility] 14:48-[id number] [place] [address] ([id number]) Body height 167.64 cm (no code) cm 01-25-2014 [facility] 15:13-[id number] [place] [address] ([id number]) Body 97.9 [degF] (no code) 97.8 - 99.0 02-23-2015 [facility] Temperature [degF] 16:52-0400 68725 [facility] ([id number]) Body 97 [degF] (no code) 97.8 - 99.0 02-09-2015 [facility] Temperature [degF] 14:08-0400 98205 [facility] ([id number]) Body 98.4 [degF] (no code) 97.8 - 99.0 01-03-2015 [facility] temperature [degF] 14:48-0500 92534 [facility] ([id number]) Body 97.8 [degF] (no code) 97.8 - 99.0 10-18-[facility] 10[facility]10-0500 90350 [facility] ([id number]) Body 97.8 [degF] (no code) 97.8 - 99.0 10-13-2014 HUSAM MIR [facility] Temperature [degF] 17:48-0500 27786 [facility] ([id number]) Body 97.9 [degF] (no code) 97.8 - 99.0 01-25-2014 [facility] [degF] 15:13-0500 08607 [facility] ([id number]) Body weight 59.65 kg (no code) kg 02-23-2015 WOLFNAVARRO DAN [facility] 16:52-0400 91026 [facility] (78061) Body weight 59.74 kg (no code) kg 02-09-2015 WOLFNAVARRO DAN [facility] 14:08-0400 63715 [facility] ([id number]) Body weight 59.42 kg (no code) kg 01-03-2015 [facility] 14:48-0500 76034 [facility] ([id number]) Body weight 61.05 kg (no code) kg 10-18-2014 WOLFNAVARRO DAN [facility] 10:10-0500 57826 [facility] ([id number]) Body weight 60.7 kg (no code) kg 10-13-2014 [facility] 17:48-0500 51022 [facility] ([id number]) Body weight 58.7 kg (no code) kg 01-25-2014 WOLF DAN [facility] 15:13-[id number] [place] [address] (30304) Height 162.56 cm (no code) cm 02-23-2015 WOLFNAVARRO AGUIRRE [facility] 16:52-0400 87741 [facility] ([id number]) Height 162.56 cm (no code) cm 02-09-2015 [facility] 14:08-0400 18474 [facility] ([id number]) Height 167.64 cm (no code) cm 10-18-2014 WOLF AGUIRRE [facility] 10:10-0500 56058 [facility] ([id number]) Height 167.64 cm (no code) cm 10-13-2014 HUSAM Melendrez [facility] 17:48-0500 60618 [facility] ([id number]) Interventions No Information Plan of Treatment The data below is from unstructured sources Activity Details Follow Up 3 Months Reason:depression Activity Details Follow Up prn Reason: Goals No Information Social History No Information Functional Status No Information Mental Status No Information Encounters Encounter Normalized Encounter Encounter Diagnosis Care Provi fritz Organization Date Type 06-18-2019 ([facility]) Jail Acute on chronic FLO Red (no [facility] - systolic (congestive) phone) (no phon e) 06-18-2019 heart failure - 06-18-2019 05-14-2019 ([facility]) Jail Pressure ulcer of WOLF OLIVERA (no [facility] - right ankle, stage 2 phone) (no phone ) 05-14-2019 - 05-14-2019 04-23-2019 ([facility]) Jail Constipation, FLO COLEMAN ( no [facility] - unspecified phone) (no phone) 04-23-2019 - 04-23-2019 02-19-2019 ([facility]) Jail Pneumonia, unspecified WOLF AGUIRRE (no [facility] - organism phone) (no phone) 02-19-2019 - 02-19-2019 12-18-2018 ([facility]) Jail Other specified WOLF SY N (no [facility] - depressive episodes phone) (no phone) 12-18-2018 - 12-18-2018 11-20-2018 ([facility]) Jail Generalized anxiety WOLF BR ENNAN (no [facility] - disorder phone) (no phone) 11-20-2018 - 11-20-2018 10-02-2018 ([facility]) Jail Generalized anxiety WOLF BR ENNAN (no [facility] - disorder phone) (no phone) 10-02-2018 - 10-02-2018 09-18-2018 ([facility]) Jail Generalized anxiety WOLF BR ENNAN (no [facility] - disorder phone) (no phone) 09-18-2018 - 09-18-2018 09-04-2018 ([facility]) Jail Other WOLF TIMOTHY (n o [facility] - obsessive-compulsive phone) (no phone ) 09-04-2018 disorder - 09-04-2018 08-28-2018 ([facility]) Jail no information WOLF TIMOTHY (no [facility] - phone) (no phone) 08-28-2018 - 08-28-2018 08-14-2018 ([facility]) Jail Other WOLF TIMOTHY (n o [facility] - obsessive-compulsive phone) (no phone ) 08-14-2018 disorder - 08-14-2018 08-07-2018 ([facility]) Jail Other WOLF TIMOTHY (n o [facility] - obsessive-compulsive phone) (no phone ) 08-07-2018 disorder - 08-07-2018 06-12-2018 ([facility]) Jail Left lower quadrant WOLF BR XANDERNAN (no [facility] - pain phone) (no phone) 06-12-2018 - 06-12-2018 06-30-2018 [facility] no information WOLF TIMOTHY ([facility] - phone) (no phone) 06-30-2018 - 06-30-2018 06-12-2018 [facility] no information WOLF TIMOTHY (no [facility] - phone) (no phone) 06-12-2018 - 06-12-2018 06-10-2018 [facility] no information WOLF TIMOTHY (no [facility] - phone) (no phone) 06-10-2018 - 06-10-2018 06-02-2018 [facility] no information [facility] TIMOTHY [facility]) (no phone) 06-02-2018 - 06-02-2018 05-22-2018 [facility] no information WOLF TIMOTHY (no [facility] - phone) (no phone) 05-22-2018 - 05-22-2018 05-16-2018 [facility] no information WOLF AGUIRRE (no [facility] - phone) (no phone) 05-16-2018 - 05-16-2018 01-25-2020 Emergency department no information CHANNING ABDI MD (no [facility] patient visit phone) [facility] (no phone) 01-08-2020 Emergency department no information CHANNING ABDI MD (no [facility] - patient visit phone) [facility] 01-08-2020 (no phone) 06-06-2019 Emergency department no information no name no organization name patient visit 02-11-2019 Emergency department no information no name no organization name patient visit 02-09-2019 Emergency department no information no name no organization name - patient visit 02-09-2019 02-08-2019 Emergency department no information MEI XIE MD [facility] - patient visit (no phone) [facility] 02-09-2019 (no phone) 08-20-2018 Emergency department no information no name no organization name - patient visit 08-20-2018 08-20-2018 Emergency department no information MANUEL BELLO (no [facility] - patient visit phone) [facility] 08-20-2018 (no phone) 07-30-2017 Emergency department no information no name no organization name - patient visit 07-30-2017 07-30-2017 Emergency department no information MEI XIE MD [facility] - patient visit (no phone) [facility] 07-30-2017 (no phone) 03-08-2017 Emergency department no information VAN MUÑOZ (no [facility] - patient visit phone) [facility] 03-08-2017 (no phone) 08-10-2016 Emergency department no information no name no organization name - patient visit 08-10-2016 08-09-2016 Emergency department no information MEI XIE MD [facility] - patient visit (no phone) [facility] 08-10-2016 (no phone) 03-17-2020 Evaluation and no information ALEC LUCAS (n o [facility] - management of phone) Pb carrera (no 03-29-2020 inpatient [place] (no phone) phone) Alec Tartaglione (no phone) Alec Tartaglione (no phone) Alec Tartaglione (no phone) Alec Tartaglione (no phone) ALEC TARTAGLIONE (no phone) Alec Tartaglione (no phone) Alec Tartaglione (no phone) Alec Tartaglione (no phone) Alec Tartaglione (no phone) Alec Tartaglione (no phone) Alec Tartaglione (no phone) Alec Tartaglione (no phone) Alec Tartaglione (no phone) Alec Tartaglione (no phone) 01-25-2020 Evaluation and no information AILEEN MUNIZ DO (no [facility] - management of phone) [facility] 01-28-2020 inpatient (no phone) 06-06-2019 Evaluation and no information no name no organ ization name - management of 06-10-2019 inpatient 06-06-2019 Evaluation and no information MELANY STOKES MD (no [facility] - management of phone) [facility] 06-10-2019 inpatient (no phone) 02-11-2019 Evaluation and no information no name no organ ization name - management of 02-13-2019 inpatient 02-11-2019 Evaluation and no information AILEEN MUNIZ DO (no [facility] - management of phone) [facility] 02-13-2019 inpatient (no phone) 03-09-2017 Evaluation and no information no name no organ ization name - management of 03-27-2017 inpatient 03-08-2017 Evaluation and no information no name no organ ization name management of inpatient 10-17-2016 Evaluation and no information no name no organ ization name - management of 11-05-2016 inpatient 05-02-2016 Evaluation and no information no name no organ ization name - management of 05-12-2016 inpatient 05-02-2016 Evaluation and no information FRANCE NAVARRO MD (no [facility] - management of phone) [facility] 05-12-2016 inpatient (no phone) 04-27-2016 Evaluation and no information no name no organ ization name - management of 05-02-2016 inpatient 04-27-2016 Evaluation and no information KADY MATTHEWS MD (no [facility] - management of phone) [facility] 05-02-2016 inpatient (no phone) 02-06-2016 Evaluation and no information no name no organ ization name - management of 02-07-2016 inpatient 02-06-2016 Evaluation and no information FRED GIBBONS MD (n o [facility] - management of phone) [facility] 02-07-2016 inpatient (no phone) 07-25-2015 Evaluation and no information no name no organ ization name - management of 07-27-2015 inpatient 07-25-2015 Evaluation and no information FLO COLEMAN MD (n o [facility] - management of phone) [facility] 07-27-2015 inpatient (no phone) 11-05-2014 Evaluation and no information KADY MATTHEWS MD (no [facility] - management of phone) [facility] 11-07-2014 inpatient (no phone) 02-25-2020 [facility] Generalized anxiety WOLF B RENNAN (no [facility] disorder phone) (no phone) 01-21-2020 [facility] Generalized anxiety WOLF B RENNAN (no [facility] disorder phone) (no phone) 01-14-2020 [facility] 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 12-24-2019 [facility] Unspecified mood WOLF BREN NAN (no [facility] [affective] disorder phone) (no phone) 11-19-2019 [facility] Cough WOLF TIMOTHY ( no [facility] phone) (no phone) 10-22-2019 [facility] Other WOLF TIMOTHY ( 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[facility] obsessive-compulsive phone) (no phone) disorder 08-13-2019 [facility] 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[facility] - disease of [place] phone) (no phone) 08-13-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 - without angina 08-13-2019 pectoris 06-03-2018 [facility] Pain in left hip WOLF OLIVERA (no [facility] - phone) (no phone) 06-03-2018 - 06-03-2018 05-29-2018 [facility] no information WOLFMarissa Cobb (no [facility] - phone) (no phone) 05-29-2018 - 05-29-2018 08-20-2018 Patient encounter no information no name no or ganization name 01-02-2018 Patient encounter no information no name no or ganization name 09-18-2017 Patient encounter no information no name no or ganization name - 09-18-2017 09-16-2017 Patient encounter no information no name no or ganization name - 09-16-2017 09-05-2015 Patient encounter no information no name no or ganization name 07-27-2015 Patient encounter no information no name no or ganization name - 08-31-2015 05-04-2014 Patient encounter no information no name no or ganization name 03-01-2014 Patient encounter no information no name no or ganization name - 03-01-2014 02-25-2014 Patient encounter no information no name no or ganization name 04-09-2013 Patient encounter no information no name no or ganization name 01-25-2020 Patient encounter no information AILEEN MUNIZ DO (no [facility] - procedure phone) [facility] 01-28-2020 (no phone) 01-21-2020 Patient encounter no information [facility]F AGUIRRE ( [facility] (no phone) 01-14-2020 Patient encounter no information WOLF S TIMOTHY ( no [facility] procedure phone) [facility] (no phone) 01-08-2020 Patient encounter no information CHANNING ABDI MD (no [facility] procedure phone) [facility] (no phone) 12-24-2019 Patient encounter no information WOLF S TIMOTHY ( no [facility] procedure phone) [facility] (no phone) 06-18-2019 Patient encounter no information no name no or ganization name procedure 06-06-2019 Patient encounter no information no name no or ganization name - procedure 06-10-2019 06-02-2019 Patient encounter no information no name no or ganization name procedure 06-02-2019 Patient encounter no information MARK FREYA I [facility] procedure (no phone) [facility] (no phone) 02-11-2019 Patient encounter no information no name no or ganization name - procedure 02-13-2019 02-09-2019 Patient encounter no information no name no or ganization name procedure 12-18-2018 Patient encounter no information no name no or ganization name procedure 08-28-2018 Patient encounter no information no name no or ganization name procedure 09-18-2017 Patient encounter no information SHANDA SAINI MD (n o [facility] - procedure phone) [facility] 09-18-2017 (no phone) 09-16-2017 Patient encounter no information SHANDA SAINI MD (n o [facility] - procedure phone) [facility] 09-16-2017 (no phone) 07-30-2017 Patient encounter no information no name no or ganization name procedure 09-05-2015 Patient encounter no information WOLF VELIZ P [facility] procedure (no phone) [facility] (no phone) 07-27-2015 Patient encounter no information JERMAINE Colmenares [facility] - procedure SCARLETT NUNES (no [facility] 08-30-2015 phone) (no phone) Patient encounter no information no name no organizat ion name procedure 08-14-2018 [facility] no information no name no o rganization name care/day minor complj 15 min 08-07-2018 [facility] no information no name no o rganization name care/day minor complj 15 min 05-08-2018 [facility] no information no name no o rganization name care/day minor complj 15 min 04-10-2018 [facility] no information no name no o rganization name care/day minor complj 15 min 02-13-2018 [facility] no information no name no o rganization name care/day minor complj 15 min 01-23-2018 [facility] no information no name no o rganization name care/day minor complj 15 min 01-02-2018 [facility] no information no name no o rganization name care/day minor complj 15 min 11-26-2017 [facility] nursing [facility] no information no name no o rganization name care/day minor complj 15 min 10-02-2018 [facility] nursing facility no information no name n o organization name care/day e/m stable 10 min 04-14-2020 Telephone encounter no information WOLF TIMOTHY ( no [facility] phone) (no phone) 04-08-2020 Telephone encounter Generalized anxiety WOLF BREN NAN (no [facility] disorder phone) (no phone) 04-04-2020 Telephone encounter no information WOLF TIMOTHY ( no [facility] phone) (no phone) 04-01-2020 Telephone encounter no information WOLF TIMOTHY ( no [facility] phone) (no phone) 03-29-2020 Telephone encounter no information WOLF TIMOTHY ( no [facility] phone) (no phone) 03-17-2020 Telephone encounter no information WOLF TIMOTHY ( no [facility] phone) (no phone) 03-16-2020 Telephone encounter Nausea WOLF TIMOTHY (no [facility] phone) (no phone) 03-11-2020 Telephone encounter no information WOLF TIMOTHY ( no [facility] phone) (no phone) 03-10-2020 Telephone encounter Repeated falls WOLF TIMOTHY ( no [facility] phone) (no phone) 03-09-2020 Telephone encounter no information WOLF TIMOTHY ( no [facility] phone) (no phone) 03-08-2020 Telephone encounter Generalized anxiety WOLF BREN NAN (no [facility] disorder phone) (no phone) 03-03-2020 Telephone encounter no information WOLF TIMOTHY ( no [facility] phone) (no phone) 02-26-2020 Telephone encounter no information WOLF TIMOTHY ( no [facility] phone) (no phone) 02-24-2020 Telephone encounter no information WOLF TIMOTHY ( no [facility] phone) (no phone) 02-22-2020 Telephone encounter Weakness WOLF TIMOTHY (no [facility] phone) (no phone) 02-19-2020 Telephone encounter no information [facility] COLEMAN [facility] phone) (no phone) 02-09-2020 Telephone encounter Generalized anxiety WOLF CRISTINA OLIVERA (no [facility] disorder phone) (no phone) 02-07-2020 Telephone encounter Nausea WOLF TIMOTHY (no [facility] phone) (no phone) 02-02-2020 Telephone encounter Functional dyspepsia WOFL HAFSA NNAN (no [facility] phone) (no phone) 2020 Telephone encounter no information FLO COLEMAN (n o [facility] phone) WOLF TIMOTHY (no phone) (no phone) 01-26-2020 Telephone encounter no information WOLF TIMOTHY ( no [facility] phone) (no phone) 01-24-2020 Telephone encounter no information WOLF TIMOTHY ( no [facility] phone) (no phone) 01-22-2020 Telephone encounter no information WOLF TIMOTHY ( no [facility] phone) (no phone) 01-19-2020 Telephone encounter no information WOLF TIMOTHY ( no [facility] phone) (no phone) 01-11-2020 Telephone encounter no information WOLF TIMOTHY ( no [facility] phone) (no phone) 12-30-2019 Telephone encounter Atherosclerotic heart WOLF PURCELL (no [facility] disease of [place] phone) (no phone) coronary artery without angina pectoris 12-25-2019 Telephone encounter no information WOLF TIMOTHY ( no [facility] phone) (no phone) 11-18-2019 Telephone encounter no information WOLF TIMOTHY ( no [facility] phone) (no phone) 10-23-2019 Telephone encounter no information WOLF TIMOTHY ( no [facility] phone) (no phone) 09-30-2019 Telephone encounter no information FLO COLEMAN (n o [facility] phone) (no phone) 07-31-2019 Telephone encounter no information WOLF TIMOTHY ( no [facility] - phone) (no phone) 07-31-2019 - 07-31-2019 07-27-2019 Telephone encounter no information WOLF TIMOTHY ( no [facility] - phone) (no phone) 07-27-2019 - 07-27-2019 07-24-2019 Telephone encounter no information WOLF TIMOTHY ( no [facility] - phone) (no phone) 07-24-2019 - 07-24-2019 07-23-2019 Telephone encounter no information WOLF TIMOTHY ( no [facility] - phone) (no phone) 07-23-2019 - 07-23-2019 06-10-2019 Telephone encounter no information WOLF TIMOTHY ( no [facility] - phone) (no phone) 06-10-2019 - 06-10-2019 06-05-2019 Telephone encounter no information WOLF TIMOTHY ( no [facility] - phone) (no phone) 06-05-2019 - 06-05-2019 06-03-2019 Telephone encounter no information WOLF TIMOTHY ( no [facility] - phone) (no phone) 06-03-2019 - 06-03-2019 06-01-2019 Telephone encounter no information WOLF TIMOTHY ( no [facility] - phone) (no phone) 06-01-2019 - 06-01-2019 05-07-2019 Telephone encounter no information WOLF TIMOTHY ( no [facility] - phone) (no phone) 05-07-2019 - 05-07-2019 03-13-2019 Telephone encounter no information WOLF TIMOTHY ( no [facility] - phone) (no phone) 03-13-2019 - 03-13-2019 03-12-2019 Telephone encounter no information WOLF TIMOTHY ( no [facility] - phone) (no phone) 03-12-2019 - 03-12-2019 03-11-2019 Telephone encounter no information WOLF TIMOTHY ( no [facility] - phone) (no phone) 03-11-2019 - 03-11-2019 03-03-2019 Telephone encounter no information WOLF TIMOTHY ( no [facility] - phone) (no phone) 03-03-2019 - 03-03-2019 02-24-2019 Telephone encounter no information [facility] TIMOTHY ( [facility] - phone) (no phone) 02-24-2019 - 02-24-2019 02-23-2019 Telephone encounter no information WOLF TIMOTHY [facility] ([facility] phone) 02-23-2019 - 02-23-2019 02-10-2019 Telephone encounter no information WOLF TIMOTHY ( no [facility] - phone) (no phone) 02-10-2019 - 02-10-2019 02-04-2019 Telephone encounter no information [facility] TIMOTHY [facility] phone[facility] 02-04-2019 - 02-04-2019 01-21-2019 Telephone encounter no information [facility] 01-21-2019 - 01-21-2019 12-24-2018 Telephone encounter no information [facility] TIMOTHY ( [facility] (no phone) 12-24-2018 - 12-24-2018 12-09-2018 Telephone encounter no information [facility] TIMOTHY ( [facility] - phone[facility] (no phone) 12-09-2018 - 12-09-2018 12-08-2018 Telephone encounter no information [facility] 12-08-2018 - 12-08-2018 11-07-2018 Telephone encounter no information [facility] TIMOTHY [facility] ([facility] phone) 11-07-2018 - 11-07-2018 10-31-2018 Telephone encounter no information [facility] TIMOTHY ( [facility] (no phone) 10-31-2018 - 10-31-2018 10-29-2018 Telephone encounter no information [facility] TIMOTHY ( [facility] (no phone) 10-29-2018 - 10-29-2018 10-28-2018 Telephone encounter no information [facility]OLF TIMOTHY ( [facility] - phone) (no phone) 10-28-2018 - 10-28-2018 10-17-2018 Telephone encounter no information WOLF TIMOTHY ( no [facility] - phone) (no phone) 10-17-2018 - 10-17-2018 10-06-2018 Telephone encounter no information [facility] TIMOTHY [facility] ([facility]) 10-06-2018 - 10-06-2018 09-30-2018 Telephone encounter no information WOLF TIMOTHY ( no [facility] - phone) (no phone) 09-30-2018 - 09-30-2018 09-23-2018 Telephone encounter no information WOLF TIMOTHY ( no [facility] - phone) (no phone) 09-23-2018 - 09-23-2018 09-22-2018 Telephone encounter no information WOLF TIMOTHY ( no [facility] - phone) (no phone) 09-22-2018 - 09-22-2018 09-18-2018 Telephone encounter no information WOLF TIMOTHY ( no [facility] - phone) (no phone) 09-18-2018 - 09-18-2018 09-17-2018 Telephone encounter no information WOLF TIMOTHY ( no [facility] - phone) (no phone) 09-17-2018 - 09-17-2018 09-11-2018 Telephone encounter no information WOLF TIMOTHY ( no [facility] - phone) (no phone) 09-11-2018 - 09-11-2018 09-08-2018 Telephone encounter no information [facility] TIMOTHY ( [facility] - phone) (no phone) 09-08-2018 - 09-08-2018 09-04-2018 Telephone encounter no information WOLF TIMOTHY ( no [facility] - phone) (no phone) 09-04-2018 - 09-04-2018 09-02-2018 Telephone encounter no information [facility] ([facility]) 09-02-2018 - 09-02-2018 09-01-2018 Telephone encounter no information WOLF TIMOTHY ( no [facility] - phone) (no phone) 09-01-2018 - 09-01-2018 08-28-2018 Telephone encounter Elevated urine levels WOLF RAPHAEL PURCELL (no [employer] [facility] - of drugs, medicaments phone) (no phon e) 08-28-2018 and biological - substances 08-28-2018 08-25-2018 Telephone encounter no information WOLF AGUIRRE ( no [facility] - phone) (no phone) 08-25-2018 - 08-25-2018 08-18-2018 Telephone encounter Irritable bowel WOLF AGUIRRE (no [facility] - syndrome with diarrhea phone) (no mihai ne) 08-18-2018 - 08-18-2018 08-14-2018 Telephone encounter no information WOLF TIMOTHY ( no [employer] [facility] - phone) (no phone) 08-14-2018 - 08-14-2018 08-06-2018 Telephone encounter no information [facility]OLF AGUIRRE ( [facility] - phone) (no phone) 08-06-2018 - 08-06-2018 07-25-2018 Telephone encounter no information WOLF TIMOTHY ( no [facility] - phone) (no phone) 07-25-2018 - 07-25-2018 02-25-2020 no information Encounter for other no name no organization name preprocedural examination no information Encounter for dental no name no organi zation name examination and cleaning without abnormal findings no information Dental examination no name no organiza tion name no information Pre-operative no name no organization name examination, unspecified no information Encounter for other no name no organiz ation name preprocedural examination Medical Equipment No Information Payers Normalized Payer Value Private Health Insurance no information Medicare no information History general Narrative - Reported Note Type Note Facility History general Narrative - Reported Type Medical Hypertension History Medical Heart disease CABG X3 Stres s test 07/2015 History Medical Gastric ulcer History Medical Hyperlipidemia History Medical Headache syndrome History Medical Psychiatric disorders-depre ssion/racing thoughts History Medical Depression History Medical At Fib 04/2016 Started on El iquis History Medical Anemia 04/2016 postsurgical hip fx History Medical Generalized anxiety disorde r History Medical Deficiency of other vitamin s History Medical Hyposmolality and/or hypona tremia History Medical Pressure ulcer of right ank le, unstageable History Medical Unspecified psychosis not d ue to a substance or known physiological condition History Medical 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 Bruce 2011 History Surgical triple bypass surgery 2004 History Surgical S/P left hip IM Nail (Intertrechanteric hip fx) 04/28/16 History Surgical egd 08/2019 History Hospitaliz surgeries ation History Hospitaliz Hypertension ation History Hospitaliz ER for a concussion 11/24/15 ation History Hospitaliz Intertrechanteric hip fx 04/27/16 ation History Hospitaliz [facility] ([facility] 2 times) Hx of 3 inpatient psych treatments in oct 2016 ation past in [place] [facility] History [facility] ([id number]) History general Narrative - Reported Note Type Note Facility History general Narrative - Reported Type Medical Hypertension History Medical Heart disease CABG X3 Stres s test 07/2015 History Medical Gastric ulcer History Medical Hyperlipidemia History Medical Headache syndrome History Medical Psychiatric disorders-depre ssion/racing thoughts History Medical Depression History Medical At Fib 04/2016 Started on El iquis History Medical Anemia 04/2016 postsurgical hip fx History Medical Generalized anxiety disorde r History Medical Deficiency of other vitamin s History Medical Hyposmolality and/or hypona tremia History Medical Pressure ulcer of right ank le, unstageable History Medical Unspecified psychosis not d ue to a substance or known physiological condition History Medical 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 Bruce 2011 History Surgical triple bypass surgery 2004 History Surgical S/P left hip IM Nail (Intertrechanteric hip fx) 04/28/16 History Surgical egd 08/2019 History Hospitaliz surgeries ation History Hospitaliz Hypertension ation History Hospitaliz ER for a concussion 11/24/15 ation History Hospitaliz Intertrechanteric hip fx 04/27/16 [facility] Hx of 3 inpatient psych treatments in oct 2016 ation past in [place] [id number] Summary Purpose eClinicalWorks SubmissioneClinicalWorks SubmissioneClinicalWorks SubmissioneClinicalWorks SubmissioneClinicalWorks SubmissioneClinicalWorks SubmissioneClinicalWorks SubmissioneClinicalWorks SubmissioneClinicalWorks SubmissioneClinicalWorks SubmissioneClinicalWorks SubmissioneClinicalWorks SubmissioneClinicalWorks SubmissioneClinicalWorks SubmissioneClinicalWorks SubmissioneClinicalWorks SubmissioneClinicalWorks SubmissioneClinicalWorks SubmissioneClinicalWorks SubmissioneClinicalWorks SubmissioneClinicalWorks SubmissioneClinicalWorks SubmissioneClinicalWorks SubmissioneClinicalWorks SubmissioneClinicalWorks SubmissioneClinicalWorks SubmissioneClinicalWorks SubmissioneClinicalWorks SubmissioneClinicalWorks Submission Additional Source Comments This clinical document has been generated using [employer] software that has been certified by the Office of the National Coordinator for Health Information Technology (ONC 15.99.04.3023.Diam.31.00.0.068138) and the National Committee for Test Manager (NCQA, as an eMeasure certified technology). FOR RECORDS PERTAINING TO PATIENTS WHO ARE OR HAVE BEEN ENROLLED IN A CHEMICAL D EPENDENCY/SUBSTANCE ABUSE PROGRAM, SOME INFORMATION MAY BE OMITTED. This clinica l summary was aggregated from multiple sources. Caution should be exercised in using it in the provision of clinical care. This summary normalizes information from multiple sources, and as a consequence, information in this document may ma terially change the coding, format and clinical context of patient data. In mike tion, data may be omitted in some cases. CLINICAL DECISIONS SHOULD BE BASED ON T HE PRIMARY CLINICAL RECORDS. [employer] provides no warranty or guara ntee of the accuracy or completeness of information in this document.The followi ng information is based on time limited clinical information UNRECOGNIZED CONTENT PROVIDED BELOW FOR UNRECOGNIZED SECTION MEDICAL (GENERAL) HISTORY Type Description Date Medical History Hypertension Medical History Heart disease CABG X 3 Stress test 07/2015 Medical History Gastric ulcer Medical History Hyperlipidemia Medical History Headache syndrome Medical History Psychiatric disorder s-depression/racing thoughts Medical History Depression Medical History At Fib 04/2016 Starte d on Eliquis Medical History Anemia 04/2016 postsu rgical hip fx Surgical History right hip replaceme nt w/ Dr. Bruce 2011 Surgical History triple bypass surgery 2004 Surgical History S/P left hip IM Jennifer l (Intertrechanteric hip fx) 04/28/16 Hospitalization History surgeries Hospitalization History Hypertension Hospitalization History ER for a concussio n 11/24/15 Hospitalization History Intertrechan teric hip fx 04/27/16 Hospitalization History [facility] oct 2016 Hospitalization [facility] Type Description Date Medical History Hypertension Medical History Heart disease CABG X 3 Stress test 07/2015 Medical History Gastric ulcer Medical History Hyperlipidemia Medical History Headache syndrome Medical History Psychiatric disorder s-depression/racing thoughts Medical History Depression Medical History At Fib 04/2016 Starte d on Eliquis Medical History Anemia 04/2016 postsu rgical hip fx Surgical History right hip replaceme nt w/ Dr. Bruce 2011 Surgical History triple bypass surgery 2003 Surgical History S/P left hip IM Jennifer l (Intertrechanteric hip fx) 04/28/16 Hospitalization History surgeries Hospitalization History Hypertension Hospitalization History ER for a concussio n 11/24/15 Hospitalization History Intertrechan teric hip fx 04/27/16 Hospitalization History [facility] ([facility]) Hx of 3 inpatient psych treatments in past in [place] oct 2016 Hospitalization [facility] UNRECOGNIZED CONTENT PROVIDED BELOW FOR UNRECOGNIZED SECTION REASON FOR VISIT Pharmacy recommendationRequests return callMeeting with pt and sonControlled Med RefillSide EffectsControlled Med RefillRoutine visitSons ConcernsControlled Med RefillDC XifaxanNursing HomeRequests return callMed lit updateControlled Med Re fillRequests return callTest resultsRequests return callRequests return callRequ ests return callCare plan meetinggeri psychRoutine VisitReturn from Ruby psychme dication reconciliation--per order summary NHmedication reconciliationRefill req uestNursing home refillEMR-Migmedication reconciliation--EETXI-SmcCLH-HldHHC-Chas [id number] [facility]
--- OUTSIDE RECORDS SUMMARY | 2020-04-18 20:10 | XMS REPORT ---
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 Name Role Phone WOLF AGUIRRE Unavailable PROBLEMS Type Condition ICD9-CM Code [id number] Code Onset Dates Condition S tatus SNOMED Code Problem Dysthymic disorder F34.1 Active 7 5762752 Problem Poor appetite R63.0 Active 658746 06 Problem Failure to thrive in adult R62.7 Act mishel [id number] Problem Coarse tremors G25.2 Active 63772 004 Problem Iron deficiency anemia secondary to inadequate d ietary iron intake D50.8 Active 599317173 Problem Atherosclerotic heart diseas e of [place] 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 Active [id number] Problem Reactive depression F32.9 Active 48996432 Problem 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 Active 3040833 04 Problem Vascular dementia with behavior disturbance F01.51 Active [id number] Problem Oropharyngeal dysphagia R13.12 Active 88307668 Problem Sundowning F05 Active 046604549 Problem Generalized anxiety disorder F41.1 A ctive 62839475 Problem Constipation, unspecified constipation type K59.00 Active 18153042 Problem Insomnia, unspecified type G47.00 Act mishel 041305451 Problem Essential hypertension I10 Active 99088886 Problem Slow transit constipation K59.01 Acti ve 53719786 Problem Other chronic pain G89.29 Active 8 8604559 Problem Irritable bowel syndrome with diarrhea K58.0 Active 918732074 Problem Severe episode of recurrent major depressive disorder, without psychotic features F33.2 Active 38976116 Problem 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 Active 1819 3002 Problem Mood disorder F39 Active 511342 05 Problem Obsessive thinking F42.8 Active 6 2944167 Problem Dementia in other diseases c lassified elsewhere with behavioral disturbance F02.81 Active 265441667 Problem Alzheimer''s disease with late onset G30.1 Active 479809264 Problem Dyspepsia K30 Active 019032131 Problem Primary insomnia F51.01 Active 397 2004 Problem Falling R29.6 Active 382849188 Problem Other chronic pain G89.29 Active 8 1443495 Problem Gastroesophageal reflux disease without esophagitis K21.9 Active 165974718 Problem Acute on chronic systolic congestive heart failure I50.23 Active 560092664 Problem Coronary artery disease invo lving [place] coronary artery of [place] heart without angina pectoris I25.10 Active 1641 888604779 Problem Restless legs G25.81 Active 644552 08 Problem HTN (hypertension) I10 Active 3 9597122 ALLERGIES No Information ENCOUNTERS Encounter Location Date Diagnosis [facility] [address] [facility] [id number] [address] [place] [id number] 14 Apr, 2020 [facility] [address] [facility] [id number] [address] [place] [phone] 08 Apr, 2020 Generalized anxiety disorder F41.1 [facility] [address] [facility] [id number] [address] [place] [id number] 04 Apr, 2020 [facility] [address] [facility] [id number] [address] [place] [address] April, [facility] [address] [facility] [id number] [address] [place] [phone] 28 Mar, 2020 [facility] [address] [facility] [id number] [address] [place] [id number] 16 Mar, 2020 [facility] [address] [facility] [id number] [address] [place] [address] 15 Mar, 2020 Nausea R11.0 [facility] [address] [facility] [id number] [address] [place] [phone] 10 Mar, 2020 [facility] [address] [facility] [id number] [address] [place] [id number] 09 Mar, 2020 Falling R29.6 [facility] [address] [facility] [id number] [address] [place] [id number] 08 Mar, 2020 [facility] [address] [id number] [address] [place] [id number] 07 Mar, 2020 Generalized anxiety disorder F41.1 [facility] [address] [id number] [address] [place] [id number] 02 Mar, 2020 [facility] [address] [id number] [address] [place] [id number] 27 Jan, [facility] [address] [place] [id number] Jan, Generalized anxiety disorder F41.1 and Pressure sore on ankle, right, unstageable L89.510 [facility] [address] [id number] [address] [place] [address] Jan, [facility] [address] [id number] [address] [place] [phone] Jan, [facility] [address] [id number] [address] [place] [address] Jan, Weakness R53.1 [facility] [address] [id number] [address] [place] [id number] 20 Jan, 2020 [facility] [address] [id number] [address] [place] [phone] 10 Jan, 2020 Generalized anxiety disorder F41.1 [facility] [address] [facility] [id number] [address] [place] [id number] 08 Jan, 2020 Nausea R11.0 [facility] [address] [id number] [address] [place] [id number] 03 Jan, 2020 Dyspepsia K30 [facility] [address] [id number] [address] [place] [phone] Jan, [facility] [address] [id number] [address] [place] [id number] Jan, [facility] [address] [facility] [id number] [address] [place] [phone] Jan, [facility] [address] [facility] [id number] [address] [place] [phone] Jan, [facility] [address] [facility] [id number] [address] [place] [id number] Jan, [facility] [id number] Jan, Generalized anxiety disorder F41.1 [facility] [address] [place] [id number] [address] [place] [address] Jan, [facility] [id number] Jan, Coronary artery disease involving sh[place] coronary artery of [place] heart without angina pectoris I25.10 [place] [address] [place] [id number] [place] [address] Jan, [facility] [address] [place] [id number] [place] [address] Dec, Atherosclerotic heart diseas e of [place] 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 [place] [address] [place] [id number] [address] [place] [id number] Dec, [facility] [id number] Dec, Mood disorder F39 ; Acute on chronic systolic congestive heart failure I50.23 ; Obsessive thinking F42.8 and HTN (hypertension) I10 [facility] [id number] Nov, Cough R05 [place] [address] [place] [id number] [address] [place] [address] Nov, [place] [address] [address] Oct, [address] [id number] Oct, Obsessive thinking F42.8 ; Generalized anxiety disorder F41.1 ; Primary insomnia F51.01 and Restless legs G25.81 [place] [address] [place] [id number] [address] [place] [address] Sep, [facility] [address] [place] [id number] Aug, Coronary artery disease involving sh[place] coronary artery of [place] heart without angina pectoris I25.10 [facility] [address] [id number] [address] [place] [address] Jul, [facility] [address] [id number] [address] [place] [phone] Jul, [facility] [address] [id number] [address] [place] [id number] Jul, [facility] [address] [id number] [address] [place] [phone] Jul, [facility] [address] [id number] [address] [place] [address] Jul, [facility] [place] [address] [place] [id number] Jun, Acute on chronic systolic congestive heart failure I50.23 and Atherosclerotic heart disease of [place] 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 [facility] [address] [id number] [address] [place] [id number] Jun, [facility] [address] [id number] [address] [place] [phone] Jun, [facility] [address] [id number] [address] [place] [phone] Jun, [facility] [address] [id number] [address] [place] [address] Jun, [facility] [address] [id number] [address] [place] [address] Jun, [facility] [address] [id number] [address] [place] [address] Jun, [facility] [address] [id number] [address] [place] [address] Jun, [facility] [address] [place] [id number] May, Pressure injury of right ankle, stage 2 L89.512 and Constipation, unspecified constipation type K59.00 [facility] [address] [id number] [address] [place] [address] May, [facility] [address] [place] [id number] April, Constipation, unspecified constipation type K59.00 ; Pressure injury of right ankle, stage 1 L89.511 and Vascular dementia with behavior disturbance F01.51 [facility] [address] [id number] [address] [place] [address] Mar, [facility] [address] [id number] [address] [place] [id number] Mar, [facility] [address] [id number] [address] [place] [phone] Mar, [facility] [address] [id number] [address] [place] [phone] Mar, [facility] [address] [id number] [address] [place] [id number] Jan, [facility] [address] [id number] [address] [place] [address] Jan, [facility] [address] [id number] [address] [place] [address] Jan, [facility] [address] [place] [id number] Jan, Pneumonia due to infectious organism, unspecified laterality, unspecified part of lung J18.9 ; Fall from bed, sequela W06.XXXS ; Hyponatremia E87.1 and Slow transit constipation K59.01 [facility] [address] [id number] [address] [place] [address] Jan, [facility] [address] [id number] [address] [place] [address] Jan, [facility] [address] [id number] [address] [place] [address] Jan, [facility] [address] [facility] [id number] [address] [place] [address] Dec, [facility] [address] [place] [id number] Dec, Other depression F32.89 ; Alzheimer''s disease with late onset G30.1 and Dementia in other diseases classified elsewhere with behavioral disturbance F02.81 [facility] [address] [facility] [id number] [address] [place] [address] Dec, [facility] [address] [place] [id number] Dec, [facility] [address] [place] [id number] Nov, Generalized anxiety disorder F41.1 and Obsessive thinking F42.8 [facility] [address] [facility] [id number] [address] [place] [address] Nov, [facility] [address] [facility] [id number] [address] [place] [phone] Oct, [facility] [address] [facility] [id number] [address] [place] [address] Oct, [facility] [address] [facility] [id number] [address] [place] [id number] Oct, [facility] [address] [facility] [id number] [address] [place] [address] Oct, [facility] [address] [facility] [id number] [address] [place] [address] Oct, [facility] [address] [place] [id number] Oct, Generalized anxiety disorder F41.1 and Obsessive thinking F42.8 [facility] [address] [facility] [id number] [address] [place] [id number] Sep, [facility] [address] [facility] [id number] [address] [place] [phone] Sep, [facility] [address] [id number] [address] [place] [address] Sep, [facility] [address] [id number] [address] [place] [address] Sep, [facility] [address] [place] [id number] Sep, Generalized anxiety disorder F41.1 ; Obsessive thinking F42.8 and Mood disorder F39 [facility] [address] [id number] [address] [place] [address] Sep, [facility] [address] [id number] [address] [place] [address] Sep, [facility] [address] [place] [id number] Sep, [facility] [address] [id number] [address] [place] [id number] Sep, [facility] [address] [id number] [address] [place] [address] Sep, [facility] [address] [place] [id number] Sep, Obsessive thinking F42.8 [facility] [address] [id number] [address] [place] [address] Sep, [facility] [address] [id number] [address] [place] [phone] Sep, [facility] [address] [id number] [address] [place] [address] Aug, [facility] [address] [id number] [address] [place] [address] Aug, [facility] [address] [facility] [id number] [address] [place] [address] Aug, Positive urine drug screen R 82.5 [facility] [address] [place] [id number] Aug, [facility] [address] [facility] [id number] [address] [place] [phone] Aug, [facility] [address] [facility] [id number] [address] [place] [address] Aug, [facility] [address] [facility] [id number] [address] [place] [phone] 17 Aug, 2018 Irritable bowel syndrome wit h diarrhea K58.0 [facility] [address] [facility] [id number] [address] [place] [address] Aug, [facility] [address] [facility] [id number] [address] [place] [id number] Aug, Obsessive thinking F42.8 ; I nsomnia, unspecified type G47.00 and Other chronic pain G89.29 [facility] [address] [place] [id number] Aug, Obsessive thinking F42.8 ; Irritable bowel syndrome with diarrhea K58.0 ; Pain in right foot M79.671 ; Pain of left foot M79.672 and Gastroesophageal reflux disease without esophagitis K21.9 [facility] [address] [facility] [id number] [address] [place] [address] Aug, [facility] [address] [facility] [id number] [address] [place] [address] Jul, [facility] [address] [facility] [id number] [address] [place] [phone] Jun, [facility] [address] [facility] [id number] [address] [place] [address] Jun, [facility] [address] [place] [id number] Jun, Left lower quadrant pain R10.32 and Left leg pain M79.605 [facility] [address] [facility] [id number] [address] [place] [address] Jun, [facility] [address] [place] [id number] Jun, Pain in left hip M25.552 ; Pain in right hip M25.551 and Primary insomnia F51.01 [facility] [address] [facility] [id number] [address] [place] [address] Jun, [facility] [address] [place] [id number] May, [facility] [address] [facility] [id number] [address] [place] [address] May, [facility] [address] [facility] [id number] [address] [place] [address] May, [facility] [address] [place] [id number] May, Mood disorder F39 [facility] [address] [facility] [id number] [address] [place] [address] May, [facility] [address] [place] [id number] [address] [place] [address] April, [facility] [address] [place] [id number] April, Generalized anxiety disorder F41.1 ; Obsessive thinking F42.8 and Insomnia, unspecified type G47.00 [facility] [address] [place] [id number] [address] [place] [address] April, [facility] [address] [place] [id number] [address] [place] [address] April, Rash of face R21 [facility] [address] [facility] [id number] [address] [place] [address] Mar, [facility] [address] [facility] [id number] [address] [place] [address] Mar, [facility] [address] [facility] [id number] [address] [place] [phone] Mar, [facility] [address] [facility] [id number] [address] [place] [address] Jan, [facility] [address] [place] [id number] [address] [place] [address] Jan, [facility] [address] [place] [id number] Jan, Constipation, unspecified constipation type K59.00 and Other chronic pain G89.29 [place] [address] [facility] [id number] [address] [place] [address] Jan, [facility] [address] [place] [id number] Jan, Obsessive thinking F42.8 and Coarse tremors G25.2 [place] [id number] [place] [id number] Jan, [place] [address] [place] [id number] [id number] Jan, [facility] [address] [place] [id number] Jan, Generalized anxiety disorder F41.1 ; Obsessive thinking F42.8 ; Callus of foot L84 and 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 [place] [address] [place] [id number] [address] [place] [address] Dec, Generalized anxiety disorder F41.1 and Severe episode of recurrent major depressive disorder, without psychotic features F33.2 [place] [address] [place] [id number] [address] [place] [address] Nov, [place] [address] [place] [id number] [address] [place] [address] Nov, [facility] [address] [place] [id number] Nov, Oropharyngeal dysphagia R13.12 ; Generalized anxiety disorder F41.1 and 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 [place] [address] [place] [id number] [address] [place] [address] Nov, [place] [id number] [facility] [id number] Nov, [place] [address] [id number] [address] [place] [address] Nov, [facility] [address] [facility] [id number] [address] [place] [address] Nov, [facility] [address] [facility] [id number] [address] [place] [address] Oct, Constipation, unspecified co nstipation type K59.00 and Mood disorder F39 [facility] [address] [facility] [id number] [address] [place] [address] Oct, [facility] [address] [id number] [place] [id number] Sep, [facility] [address] [id number] [place] [id number] Sep, [facility] [address] [id number] [place] [id number] Sep, [facility] [address] [id number] [place] [id number] Sep, [facility] [address] [place] [id number] Sep, Generalized abdominal pain R10.84 [facility] [address] [facility] [id number] [address] [place] [address] Sep, [facility] [address] [id number] [place] [id number] Sep, Generalized anxiety disorder F41.1 and P rimary insomnia F51.01 [facility] [address] [id number] [place] [id number] Aug, [facility] [address] [id number] [place] [id number] Aug, Generalized anxiety disorder F41.1 [facility] [address] [facility] [id number] [address] [place] [phone] Jul, [facility] [address] [place] [id number] Jul, Obsessive thinking F42.8 [facility] [address] [facility] [id number] [address] [place] [address] Jul, Generalized anxiety disorder F41.1 and Irritable bowel syndrome with diarrhea K58.0 [facility] [address] [id number] [place] [id number] Jul, Generalized anxiety disorder F41.1 [facility] [address] [id number] [place] [id number] Jun, Generalized anxiety disorder F41.1 [facility] [address] [facility] [id number] [address] [place] [address] May, [facility] [address] [place] [id number] May, Generalized anxiety disorder F41.1 ; Irritable bowel syndrome with diarrhea K58.0 and Coarse tremors G25.2 [facility] [address] [facility] [id number] [address] [place] [address] April, [facility] [address] [facility] [id number] [address] [place] [address] April, [facility] [address] [facility] [id number] [address] [place] [address] April, [facility] [address] [facility] [id number] [address] [place] [phone] Mar, [facility] [address] [place] [id number] Mar, Severe episode of recurrent major depressive disorder, without psychotic features F33.2 and Pain in left hip M25.552 [facility] [address] [facility] [id number] [address] [place] [address] Mar, [facility] [address] [facility] [id number] [address] [place] [address] Mar, [facility] [address] [facility] [id number] [address] [place] [address] Mar, [facility] [address] [facility] [id number] [address] [place] [address] Mar, Pain in right hip M25.551 an d Self-care deficit in patient living alone R46.89 [facility] [address] [facility] [id number] [address] [place] [address] Jan, Other chronic pain G89.29 ; Pain in left hip M25.552 and Slow transit constipation K59.01 [facility] [address] [facility] [id number] [address] [place] [address] Jan, [facility] [address] [id number] Dec, Other depression F32.89 ; Co nstipation, unspecified constipation type K59.00 and Insomnia, unspecified type G47.00 [facility] [address] [id number] Nov, Reactive depression F32.9 ; Chronic idiopathic constipation K59.04 ; Generalized anxiety disorder F41.1 ; Coarse tremors G25.2 ; Gastroesophageal reflux disease without esophagitis K21.9 ; Dysthymic disorder F34.1 ; Vitamin deficiency, unspecified E56.9 and Primary insomnia F51.01 [facility] [facility] [address] [id number] [address] [place] [address] Nov, [facility] [address] [id number] [address] [place] [address] Nov, [place] [id number] [id number] [address] [place] [address] Nov, [place] [address] [address] Nov, Reactive depression F32.9 ; Essential hypertension I10 ; Generalized anxiety disorder F41.1 ; Atherosclerotic heart disease of shawnee 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 ; Pain in right hip M25.551 ; Other chronic pain G89.29 ; Chronic idiopathic constipation K59.04 ; Primary insomnia F51.01 ; Coarse tremors G25.2 ; Gastroesophageal reflux disease without esophagitis K21.9 ; Iron deficiency anemia secondary to inadequate dietary iron intake D50.8 and Vitamin deficiency, unspecified E56.9 [facility] [address] [facility] [id number] [address] [place] [address] Oct, [facility] [address] [facility] [id number] [address] [place] [address] Oct, [facility] [address] [facility] [id number] [address] [place] [address] Oct, [facility] [address] [facility] [id number] [place] [address] 16 Oct, 2016 Generalized anxiety disorder F41.1 ; Poor appetite R63.0 ; Dehydration E86.0 and Failure to thrive in adult R62.7 [place] [address] [id number] [address] [place] [address] 07 Oct, 2016 Generalized anxiety disorder F41.1 and Failure to thrive in adult R62.7 [facility] [address] [facility] [id number] [address] [place] [address] Oct, [facility] [address] [id number] [address] [place] [address] Oct, [facility] [address] [facility] [id number] [address] [place] [address] Sep, Vaginal discharge N89.8 and Acute cystitis with hematuria N30.01 [facility] [address] [facility] [id number] [address] [place] [address] Sep, [facility] [address] [id number] [address] [place] [address] Sep, [facility] [address] [facility] [id number] [address] [place] [address] Sep, Dysthymic disorder F34.1 ; A cute vaginitis N76.0 ; Dysuria R30.0 and Vaginal yeast infection B37.3 [facility] [address] [facility] [id number] [address] [place] [address] Aug, [facility] [address] [facility] [id number] [place] [address] Aug, [facility] [address] [facility] [id number] [address] [place] [address] Aug, Foul smelling urine R82.90 ; Rapid heart rate R00.0 and Flatulence R14.3 [facility] [address] [facility] [id number] [address] [place] [address] Aug, [facility] [id number] [place] [address] Jul, Constipation, unspecified co nstipation type K59.00 ; Weak R53.1 ; Poor appetite R63.0 ; Coronary artery disease involving shawnee heart without angina pectoris, unspecified vessel or lesion type I25.10 ; Fatigue, unspecified type R53.83 ; Urinary incontinence, unspecified type R32 and Insomnia, unspecified type G47.00 [facility] [address] [facility] [id number] [address] [place] [address] Jul, [facility] [address] [id number] [address] [place] [address] Jun, Dysuria R30.0 [facility] [id number] [place] [address] Jun, [facility] [address] [id number] [address] [place] [address] Jun, Urinary tract infection, sit e not specified N39.0 ; Acute vaginitis N76.0 and Diarrhea, unspecified type R19.7 [facility] [address] [facility] [id number] [address] [place] [address] May, [facility] [address] [id number] [address] [place] [address] April, [facility] [address] [facility] [id number] [address] [place] [id number] 13 Apr, 2016 Encounter for dental examina tion Z01.20 [facility] [address] [id number] [address] [place] [address] April, [facility] [address] [facility] [id number] [address] [place] [address] April, Tremor R25.1 and Episodic te nsion-type headache, not intractable G44.219 [facility] [address] [id number] [address] [place] [address] Mar, [facility] [address] [facility] [id number] [address] [place] [address] Jan, Mood disorder F39 [facility] [address] [facility] [id number] [address] [place] [address] Jan, [facility] [address] [facility] [id number] [address] [place] [address] Jan, [facility] [address] [facility] [id number] [address] [place] [address] Jan, [facility] [address] [facility] [id number] [address] [place] [address] Jan, [facility] [address] [facility] [id number] [address] [place] [address] Jan, [facility] [address] [facility] [id number] [address] [place] [address] Jan, [facility] [address] [facility] [id number] [address] [place] [address] Dec, Acute diarrhea R19.7 [facility] [address] [facility] [id number] [address] [place] [address] Dec, [facility] [address] [facility] [id number] [address] [place] [address] Dec, [facility] [address] [facility] [id number] [address] [place] [address] Dec, [facility] [address] [facility] [id number] [address] [place] [address] Dec, N&V (nausea and vomiting) R1 1.2 [facility] [address] [facility] [id number] [address] [place] [address] Dec, Generalized anxiety disorder F41.1 [facility] [address] [facility] [id number] [place] [address] Dec, Generalized anxiety disorder F41.1 [facility] [id number] [place] [address] Nov, Post concussion syndrome F07 .81 [facility] [id number] [place] [address] Nov, Generalized anxiety disorder F41.1 [facility] [address] [address] Nov, [facility] [address] [address] Nov, Generalized anxiety disorder F41.1 [facility] [id number] [place] [address] [id number] Oct, Dental caries K02.9 [facility] [address] [address] Oct, [facility] [address] [id number] Oct, Dental examination Z01.20 [facility] [address] [place] [address] [id number] Oct, Encounter for dental examina tion Z01.20 [facility] [address] [id number] [address] [place] [address] 09 Oct, 2015 CAD (coronary artery disease ) I25.10 [facility] [id number] [address] [place] [address] Sep, Generalized anxiety disorder F41.1 [facility] [address] [address] Sep, [facility] [address] [address] Sep, Rash and other nonspecific s kin eruption R21 and Yeast vaginitis B37.3 [facility] [address] [address] Sep, Generalized anxiety disorder F41.1 [facility] [address] [address] Aug, Insect bites 919.4 and Hemor rhoids 455.6 [facility] [address] [address] Aug, Generalized anxiety disorder 300.02 [facility] [address] [phone] 08 Aug, 2015 [facility] [address] [address] Aug, [facility] [address] [address] Aug, Generalized anxiety disorder 300.02 ; No condition on Mal[place] II V71.09 ; Heart problem 429.9 and Hypertension 401.9 [facility] [address] [address] Aug, [facility] [address] [address] Jul, [facility] [address] [address] Jul, [facility] [address] [address] Jul, [facility] [address] [address] Jul, [facility] [address] [id number] [address] [place] [address] Jul, Rash 782.1 [facility] [address] [id number] [address] [place] [address] Jul, UTI (urinary tract infection ) 599.0 [facility] [address] [id number] [address] [place] [address] Jul, [facility] [address] [id number] [address] [place] [address] Jun, Dysthymia 300.4 and Anxiety 300.00 [facility] [address] [id number] [address] [place] [address] Jun, 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 [facility] [address] [id number] [address] [place] [address] May, [facility] [address] [id number] [address] [place] [address] May, [facility] [address] [id number] [address] [place] [address] May, Unspecified breast screening V76.10 [facility] [address] [id number] [address] [place] [address] [id number] May, Dental examination V72.2 [facility] [address] [id number] [address] [place] [address] April, [facility] [address] [id number] [address] [place] [address] April, [facility] [address] [id number] [address] [place] [address] [id number] April, Dental examination V72.2 [facility] [address] [id number] [address] [place] [id number] April, Dental examination V72.2 [facility] [address] [id number] [address] [place] [phone] 14 Mar, 2015 [facility] [address] [id number] [address] [place] [address], [place] [address] 13 Mar, 2015 [facility] [address] [id number] [address] [place] [address], [place] [address] 25 Jan, 2015 [facility] [address] [id number] [address] [place] [address], [place] [address] 25 Jan, 2015 [facility] [address] [id number] [address] [place] [address], [place] [address] 18 Jan, 2015 [facility] [address] [id number] [address] [place] [address], [place] [address] 18 Jan, 2015 [facility] [address] [id number] [address] [place] [address], [place] [address] 16 Jan, 2015 [facility] [address] [id number] [address] [place] [address], [place] [address] 16 Jan, 2015 [facility] [address] [id number] [address] [place] [address], [place] [address] 13 Jan, 2015 [facility] [address] [id number] [address] [place] [address], [place] [address] 13 Jan, 2015 [facility] [address] [id number] [address] [place] [address], [place] [address] 11 Jan, 2015 [facility] [address] [id number] [address] [place] [address], [place] [address] 11 Jan, 2015 [facility] [address] [id number] [address] [place] [address], [place] [address] 11 Jan, 2015 [facility] [address] [id number] [address] [place] [address], [place] [address] Jan, [facility] [address] [id number] [address] [place] [address], [place] [address] 09 Jan, 2015 [facility] [address] [id number] [address] [place] [address], [place] [address] 09 Jan, 2015 [facility] [address] [id number] [address] [place] [address], [place] [address] Jan, 2014 [facility] [address] [id number] [address] [place] [address], [place] [address] Jan, 2014 [facility] [address] [id number] [address] [place] [address], [place] [address] Jan, 2014 [facility] [address] [id number] [address] [place] [address], [place] [address] Jan, 2014 [facility] [address] [id number] [address] [place] [address], [place] [address] Jan, 2014 [facility] [address] [id number] [address] [place] [address], [place] [address] Jan, 2014 [facility] [address] [id number] [address] [place] [address], [place] [address] Jan, [facility] [address] [id number] [address] [place] [address], [place] [address] Jan, [facility] [address] [id number] [address] [place] [address], [place] [address] Dec, [facility] [address] [id number] [address] [place] [address], [place] [address] Dec, [facility] [address] [id number] [address] [place] [address], [place] [address] Dec, [facility] [address] [id number] [address] [place] [address], [place] [address] Dec, [facility] [address] [id number] [address] [place] [address], [place] [address] Nov, [facility] [address] [id number] [address] [place] [address], [place] [address] Nov, [facility] [address] [id number] [address] [place] [address], [place] [address] Nov, [facility] [address] [id number] [address] [place] [address], [place] [address] Nov, [facility] [address] [id number] [address] [place] [address], [place] [address] Nov, [facility] [address] [id number] [address] [place] [address], [place] [address] Nov, [facility] [address] [id number] [address] [place] [address], [place] [address] Nov, [facility] [address] [id number] [address] [place] [address], [place] [address] Oct, [facility] [address] [id number] [address] [place] [address], [place] [address] Oct, [facility] [address] [id number] [address] [place] [address], [place] [address] Oct, [facility] [address] [id number] [address] [place] [address], [place] [address] Oct, [facility] [address] [id number] [address] [place] [address], [place] [address] Oct, [facility] [address] [id number] [address] [place] [address], [place] [address] Oct, [facility] [address] [id number] [address] [place] [address], [place] [address] Oct, [facility] [address] [id number] [address] [place] [address], [place] [address] Oct, [facility] [address] [id number] [address] [place] [address], [place] [address] Oct, [facility] [address] [id number] [address] [place] [address], [place] [address] Oct, [facility] [address] [id number] [address] [place] [address], [place] [address] Oct, [facility] [address] [id number] [address] [place] [address], [place] [address] Oct, [facility] [address] [id number] [address] [place] [address], [place] [address] Sep, [facility] [address] [id number] [address] [place] [address], [place] [address] Sep, [facility] [address] [id number] [address] [place] [address], [place] [address] Sep, [facility] [address] [id number] [address] [place] [address], [place] [address] Sep, [facility] [address] [id number] [address] [place] [address], [place] [address] Jul, [facility] [address] [id number] [address] [place] [address], [place] [address] Jul, [facility] [address] [id number] [address] [place] [address], [place] [address] Jul, [facility] [address] [id number] [address] [place] [address], [place] [address] Jul, [facility] [address] [id number] [address] [place] [address], [place] [address] Jun, [facility] [address] [id number] [address] [place] [address], [place] [address] Jun, [facility] [address] [id number] [address] [place] [address], [place] [address] Jun, [facility] [address] [id number] [address] [place] [address], [place] [address] Jun, [facility] [address] [id number] [address] [place] [address], [place] [address] May, [facility] [address] [id number] [address] [place] [address], [place] [address] May, [facility] [address] [id number] [address] [place] [address], [place] [address] April, [facility] [address] [id number] [address] [place] [address], [place] [address] April, [facility] [address] [id number] [address] [place] [address], [place] [address] April, [facility] [address] [id number] [address] [place] [address], [place] [address] April, [facility] [address] [id number] [address] [place] [address], [place] [address] April, [facility] [address] [id number] [address] [place] [address], [place] [address] April, [facility] [address] [id number] [address] [place] [address], [place] [address] April, [facility] [address] [id number] [address] [place] [address], [place] [address] April, [facility] [address] [id number] [address] [place] [address], [place] [address] April, [facility] [address] [id number] [address] [place] [address], [place] [address] Mar, [facility] [address] [id number] [address] [place] [address], [place] [address] Mar, [facility] [address] [id number] [address] [place] [address], [place] [address] Mar, [facility] [address] [id number] [address] [place] [address], [place] [address] Mar, [facility] [address] [id number] [address] [place] [address], [place] [address] Jan, [facility] [address] [id number] [address] [place] [address], [place] [address] Jan, [facility] [address] [id number] [address] [place] [address], [place] [address] Jan, [facility] [address] [id number] [address] [place] [address], [place] [address] Jan, [facility] [address] [id number] [address] [place] [address], [place] [address] 10 Jan, 2014 [facility] [address] [id number] [address] [place] [address], [place] [address] 10 Jan, 2014 [facility] [address] [id number] [address] [place] [address], [place] [address] Jan, [facility] [address] [id number] [address] [place] [address], [place] [address] Jan, [facility] [address] [id number] [address] [place] [address], [place] [address] Jan, [facility] [address] [id number] [address] [place] [address], [place] [address] Jan, [facility] [address] [id number] [address] [place] [address], [place] [address] Jan, [facility] [address] [id number] [address] [place] [address], [place] [address] Jan, [facility] [address] [id number] [address] [place] [address], [place] [address] Dec, [facility] [address] [id number] [address] [place] [address], [place] [address] Dec, [facility] [address] [id number] [address] [place] [address], [place] [address] Dec, [facility] [address] [id number] [address] [place] [address], [place] [address] Dec, [facility] [address] [id number] [address] [place] [address], [place] [address] Nov, [facility] [address] [id number] [address] [place] [address], [place] [address] Nov, [facility] [address] [id number] [address] [place] [address], [place] [address] Nov, [facility] [address] [id number] [address] [place] [address], [place] [address] Nov, [facility] [address] [id number] [address] [place] [address], [place] [address] Oct, [facility] [address] [id number] [address] [place] [address], [place] [address] Oct, [facility] [address] [id number] [address] [place] [address], [place] [address] Sep, [facility] [address] [id number] [address] [place] [address], [place] [address] Sep, [facility] [address] [id number] [address] [place] [address], [place] [address] Jul, [facility] [address] [id number] [address] [place] [address], [place] [address] Jul, [facility] [address] [id number] [address] [place] [address], [place] [address] Jun, [facility] [address] [id number] [address] [place] [address], [place] [address] Jun, [facility] [address] [id number] [address] [place] [address], [place] [address] Jun, [facility] [address] [id number] [address] [place] [address], [place] [address] May, [facility] [address] [id number] [address] [place] [address], [place] [address] May, [facility] [address] [id number] [address] [place] [address], [place] [address] May, [facility] [address] [id number] [address] [place] [address], [place] [address] May, [facility] [address] [id number] [address] [place] [address], [place] [address] May, [facility] [address] [id number] [address] [place] [address], [place] [address] April, [facility] [address] [id number] [address] [place] [address], [place] [address] April, [facility] [address] [id number] [address] [place] [address], [place] [address] April, [facility] [address] [address] [id number] [address] [place] [address], [place] [address] April, [facility] [address] [id number] [address] [place] [address], [place] [address] April, [facility] [address] [id number] [address] [place] [address], [place] [address] April, [facility] [address] [id number] [address] [place] [address], [place] [address] Mar, [facility] [address] [id number] [address] [place] [address], [place] [address] Mar, [facility] [address] [id number] [address] [place] [address], [place] [address] Jan, [facility] [address] [id number] [address] [place] [address], [place] [address] Jan, [facility] [address] [id number] [address] [place] [address], [place] [address] Jan, [facility] [address] [id number] [address] [place] [address], [place] [address] Jan, [facility] [address] [id number] [address] [place] [address], [place] [address] Jan, [facility] [address] [id number] [address] [place] [address], [place] [address] Jan, [facility] [address] [id number] [address] [place] [address], [place] [address] Jan, [facility] [address] [id number] [address] [place] [address], [place] [address] Jan, [facility] [address] [id number] [address] [place] [address], [place] [address] Jan, [facility] [address] [id number] [address] [place] [address], [place] [address] Jan, [facility] [address] [id number] [address] [place] [address], [place] [address] Jan, [facility] [address] [id number] [address] [place] [address], [place] [address] Dec, [facility] [address] [id number] [address] [place] [address], [place] [address] Nov, [facility] [address] [id number] [address] [place] [address], [place] [address] Nov, [facility] [address] [id number] [address] [place] [address], [place] [address] Nov, [facility] [address] [id number] [address] [place] [address], [place] [address] Nov, [facility] [address] [id number] [address] [place] [address], [place] [address] Nov, [facility] [address] [id number] [address] [place] [address], [place] [address] Nov, [facility] [address] [id number] [address] [place] [address], [place] [address] Nov, [facility] [address] [id number] [address] [place] [address], [place] [address] Nov, [facility] [address] [id number] [address] [place] [address], [place] [address] Nov, [facility] [address] [id number] [address] [place] [address], [place] [address] Nov, [facility] [address] [id number] [address] [place] [address], [place] [address] Nov, [facility] [address] [id number] [address] [place] [address], [place] [address] Nov, [facility] [address] [id number] [address] [address] Nov, [facility] [address] [id number] [address] [place] [address], [place] [address] Oct, [facility] [address] [id number] [address] [place] [address], [place] [address] Oct, [facility] [address] [id number] [address] [place] [address], [place] [address] Oct, [facility] [address] [id number] [address] [place] [address] Sep, [facility] [address] [id number] [address] [place] [address], [place] [address] Sep, [facility] [address] [id number] [address] [place] [address], [place] [address] Sep, [facility] [address] [id number] [address] [place] [address], [place] [address] Sep, [facility] [address] [id number] [address] [place] [address], [place] [address] Aug, [facility] [address] [id number] [address] [place] [address], [place] [address] 20 Aug, 2012 [facility] [address] [id number] [address] [place] [address], [place] [address] 24 Jul, 2012 [facility] [address] [id number] [address] [place] [address] May, [facility] [address] [id number] [address] [place] [address] May, [facility] [address] [id number] [address] [place] [address], [place] [address] May, [facility] [address] [id number] [address] [place] [address] April, [facility] [address] [id number] [address] [place] [address] Mar, [facility] [address] [id number] [address] [place] [address], [place] [address] 10 Mar, 2012 [facility] [address] [id number] [address] [place] [address], [place] [address] Mar, [facility] [address] [id number] [address] [place] [address], [place] [address] Jan, [facility] [address] [id number] [address] [place] [address], [place] [address] Jan, [facility] [address] [id number] [address] [place] [address], [place] [address] Jan, [facility] [address] [id number] [address] [place] [address], [place] [address] Dec, [facility] [address] [id number] [address] [place] [address], [place] [address] Dec, [facility] [address] [id number] [address] [place] [address], [place] [address] Dec, [facility] [address] [id number] [address] [place] [address], [place] [address] Dec, [facility] [address] [id number] [address] [place] [address], [place] [address] Nov, [facility] [address] [id number] [address] [place] [address], [place] [address] Nov, [facility] [address] [id number] [address] [place] [address], [place] [address] Nov, [facility] [address] [id number] [address] [place] [address], [place] [address] Oct, [facility] [address] [id number] [address] [place] [address], [place] [address] 31 Sep, 2011 [facility] [address] [id number] [address] [place] [address], [place] [address] 26 Sep, 2011 [facility] [address] [id number] [address] [place] [address], [place] [address] 13 Sep, 2011 [facility] [address] [id number] [address] [place] [address], [place] [address] 15 Nov, 2010 [facility] [address] [id number] [address] [place] [address], [place] [address] 23 Oct, 2010 [facility] [address] [id number] [address] [place] [address], [place] [address] 19 Oct, 2010 [facility] [address] [id number] [address] [place] [address], [place] [address] 18 Oct, 2010 [facility] [address] [id number] [address] [place] [address], [place] [address] 16 Oct, 2010 [facility] [address] [id number] [address] [place] [address], [place] [address] Sep, [facility] [address] [id number] [address] [place] [address], [place] [address] April, [facility] [address] [id number] [address] [place] [address] 29 Nov, 2009 [facility] [address] [id number] [address] [place] [address], [place] [address] 24 Nov, 2009 [facility] [address] [id number] [address] [place] [address] 22 Nov, 2009 [facility] [address] [id number] [address] [place] [address] Nov, [facility] [address] [id number] [address] [place] [address] 10 Nov, 2009 [facility] [address] [id number] [address] [place] [address] 19 Oct, 2009 [facility] [address] [id number] [address] [place] [address] 02 Oct, 2009 [facility] [address] [id number] [address] [place] [address] 13 Sep, 2009 [facility] [address] [id number] [address] [place] [address] Jan, IMMUNIZATIONS No Known Immunizations SOCIAL HISTORY Never Assessed REASON FOR VISIT PLAN OF CARE VITAL SIGNS MEDICATIONS Unknown Medications RESULTS No Results PROCEDURES No Known procedures INSTRUCTIONS MEDICATIONS ADMINISTERED No Known Medications MEDICAL (GENERAL) HISTORY Type Description Date Medical History Hypertension Medical History Heart disease CABG X3 Stress test 5 Medical History Gastric ulcer Medical History Hyperlipidemia Medical History Headache syndrome Medical History Psychiatric disorders-depression/racing thoughts Medical History Depression Medical History At Fib 04/2016 Started on Eliquis Medical History Anemia 04/2016 postsurgical hip fx Medical History Generalized anxiety disorder Medical History Deficiency of other vitamins Medical History Hyposmolality and/or hyponatremia Medical History Pressure ulcer of right ankle, unstageab le Medical History Unspecified psychosis not du e to a substance or known physiological condition Medical History Acute on chronic combined sy stolic (congestive) and diastolic (congestive) heart failure Medical History Vascular dementia with behavior disturba nce Medical History Somatization disorder Surgical History right hip replacement w/ Dr. Bruce 20 12 Surgical History triple bypass surgery 2003 Surgical History S/P left hip IM Nail (Intertrechanteric hip fx) 04/28/16 Surgical History egd 08/2019 Hospitalization History surgeries Hospitalization History Hypertension Hospitalization History ER for a concussion 11/24/15 Hospitalization History Intertrechanteric hip fx 04/27/16 [facility] treatments in past in [place] oct 2016 [facility]
--- OUTSIDE RECORDS SUMMARY | 2020-04-18 20:10 | XMS REPORT ---
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 Name Role Phone WOLF AGUIRRE Unavailable PROBLEMS Type Condition ICD9-CM Code [id number] Code Onset Dates Condition S tatus SNOMED Code Problem Dysthymic disorder F34.1 Active 7 0801898 Problem Poor appetite R63.0 Active 091907 06 Problem Failure to thrive in adult R62.7 Act mishel 557620602 Problem Coarse tremors G25.2 Active 48919 004 Problem Iron deficiency anemia secondary to inadequate d ietary iron intake D50.8 Active 248817483 Problem Atherosclerotic heart diseas e of [place] 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 Active [id number] Problem Reactive depression F32.9 Active 16760864 Problem 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 Active 5343301 04 Problem Vascular dementia with behavior disturbance F01.51 Active [id number] Problem Oropharyngeal dysphagia R13.12 Active 92961632 Problem Sundowning F05 Active 065984317 Problem Generalized anxiety disorder F41.1 A ctive 95582628 Problem Constipation, unspecified constipation type K59.00 Active 63925523 Problem Insomnia, unspecified type G47.00 Act mishel 638368297 Problem Essential hypertension I10 Active 14647335 Problem Slow transit constipation K59.01 Acti ve 23173768 Problem Other chronic pain G89.29 Active 8 7346574 Problem Irritable bowel syndrome with diarrhea K58.0 Active 049033956 Problem Severe episode of recurrent major depressive disorder, without psychotic features F33.2 Active 25535826 Problem 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 Active 1819 3002 Problem Mood disorder F39 Active 527919 05 Problem Obsessive thinking F42.8 Active 6 1067885 Problem Dementia in other diseases c lassified elsewhere with behavioral disturbance F02.81 Active 787299120 Problem Alzheimer''s disease with late onset G30.1 Active 089246068 Problem Dyspepsia K30 Active 905640669 Problem Primary insomnia F51.01 Active 397 2004 Problem Falling R29.6 Active 149330278 Problem Other chronic pain G89.29 Active 8 9156059 Problem Gastroesophageal reflux disease without esophagitis K21.9 Active 472484205 Problem Acute on chronic systolic congestive heart failure I50.23 Active 265160244 Problem Coronary artery disease invo lving [place] coronary artery of [place] heart without angina pectoris I25.10 Active 1641 630797952 Problem Restless legs G25.81 Active 377618 08 Problem HTN (hypertension) I10 Active 3 7787333 ALLERGIES No Information ENCOUNTERS Encounter Location Date Diagnosis [facility] [address] [facility] [id number] [address] [place] [phone] 14 Apr, 2020 [facility] [address] [facility] [id number] [address] [place] [phone] 08 Apr, 2020 Generalized anxiety disorder F41.1 [facility] [address] [facility] [id number] [address] [place] [phone] 04 Apr, 2020 [facility] [address] [facility] [id number] [address] [place] [phone] April, [facility] [address] [facility] [id number] [address] [place] [phone] 28 Mar, 2020 [facility] [address] [facility] [id number] [address] [place] [phone] 16 Mar, 2020 [facility] [address] [facility] [id number] [address] [place] [phone] 15 Mar, 2020 Nausea R11.0 [facility] [address] [facility] [id number] [address] [place] [phone] 10 Mar, 2020 [facility] [address] [facility] [id number] [address] [place] [phone] 09 Mar, 2020 Falling R29.6 [facility] [address] [facility] [id number] [address] [place] [phone] 08 Mar, 2020 [facility] [address] [id number] [address] [place] [phone] 07 Mar, 2020 Generalized anxiety disorder F41.1 [facility] [address] [id number] [address] [place] [phone] 02 Mar, 2020 [facility] [address] [id number] [address] [place] [phone] 27 Jan, 2020 [facility] [address] [place] [id number] Jan, Generalized anxiety disorder F41.1 and Pressure sore on ankle, right, unstageable L89.510 [facility] [address] [id number] [address] [place] [phone] Jan, [facility] [address] [id number] [address] [place] [phone] Jan, [facility] [address] [id number] [address] [place] [phone] Jan, Weakness R53.1 [facility] [address] [id number] [address] [place] [phone] 20 Jan, 2020 [facility] [address] [id number] [address] [place] [phone] 10 Jan, 2020 Generalized anxiety disorder F41.1 [facility] [address] [facility] [id number] [address] [place] [phone] 08 Jan, 2020 Nausea R11.0 [facility] [address] [id number] [address] [place] [phone] 03 Jan, 2020 Dyspepsia K30 [facility] [address] [id number] [address] [place] [phone] Jan, [facility] [address] [id number] [address] [place] [phone] Jan, [facility] [address] [facility] [id number] [address] [place] [phone] Jan, [facility] [address] [facility] [id number] [address] [place] [phone] Jan, [facility] [address] [facility] [id number] [address] [place] [phone] Jan, [facility] [id number] Jan, Generalized anxiety disorder F41.1 [facility] [address] [place] [id number] [address] [place] [phone] Jan, [facility] [id number] Jan, Coronary artery disease involving pilot [place] coronary artery of [place] heart without angina pectoris I25.10 [place] [address] [place] [id number] [place] [phone] Jan, [facility] [address] [place] [id number] [place] [phone] Dec, Atherosclerotic heart diseas e of [place] 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 [place] [address] [place] [id number] [address] [place] [phone] Dec, [facility] [id number] Dec, Mood disorder F39 ; Acute on chronic systolic congestive heart failure I50.23 ; Obsessive thinking F42.8 and HTN (hypertension) I10 [facility] [address] [id number] Nov, Cough R05 [place] [address] [place] [id number] [address] [place] [phone] Nov, [place] [address] [phone] Oct, [facility] [id number] Oct, Obsessive thinking F42.8 ; Generalized anxiety disorder F41.1 ; Primary insomnia F51.01 and Restless legs G25.81 [place] [address] [place] [id number] [address] [place] [phone] Sep, [facility] [address] [place] [id number] Aug, Coronary artery disease involving [place] coronary artery of [place] heart without angina pectoris I25.10 [facility] [address] [id number] [address] [place] [phone] Jul, [facility] [address] [id number] [address] [place] [phone] Jul, [facility] [address] [id number] [address] [place] [phone] Jul, [facility] [address] [id number] [address] [place] [phone] Jul, [facility] [address] [id number] [address] [place] [phone] Jul, [facility] [place] [address] [place] [id number] Jun, Acute on chronic systolic congestive heart failure I50.23 and Atherosclerotic heart disease of [place] 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 [facility] [address] [id number] [address] [place] [phone] Jun, [facility] [address] [id number] [address] [place] [phone] Jun, [facility] [address] [id number] [address] [place] [phone] Jun, [facility] [address] [id number] [address] [place] [phone] Jun, [facility] [address] [id number] [address] [place] [phone] Jun, [facility] [address] [id number] [address] [place] [phone] Jun, [facility] [address] [id number] [address] [place] [phone] Jun, [facility] [address] [place] [id number] May, Pressure injury of right ankle, stage 2 L89.512 and Constipation, unspecified constipation type K59.00 [facility] [address] [id number] [address] [place] [phone] May, [facility] [address] [place] [id number] April, Constipation, unspecified constipation type K59.00 ; Pressure injury of right ankle, stage 1 L89.511 and Vascular dementia with behavior disturbance F01.51 [facility] [address] [id number] [address] [place] [id number] Mar, [facility] [address] [id number] [address] [place] [phone] Mar, [facility] [address] [id number] [address] [place] [phone] Mar, [facility] [address] [id number] [address] [place] [phone] Mar, [facility] [address] [id number] [address] [place] [phone] Jan, [facility] [address] [id number] [address] [place] [phone] Jan, [facility] [address] [id number] [address] [place] [phone] Jan, [facility] [address] [place] [id number] Jan, Pneumonia due to infectious organism, unspecified laterality, unspecified part of lung J18.9 ; Fall from bed, sequela W06.XXXS ; Hyponatremia E87.1 and Slow transit constipation K59.01 [facility] [address] [id number] [address] [place] [phone] Jan, [facility] [address] [id number] [address] [place] [phone] Jan, [facility] [address] [id number] [address] [place] [phone] Jan, [facility] [address] [facility] [id number] [address] [place] [phone] Dec, [facility] [address] [place] [id number] Dec, Other depression F32.89 ; Alzheimer''s disease with late onset G30.1 and Dementia in other diseases classified elsewhere with behavioral disturbance F02.81 [facility] [address] [facility] [id number] [address] [place] [phone] Dec, [facility] [address] [place] [id number] Dec, [facility] [address] [place] [id number] Nov, Generalized anxiety disorder F41.1 and Obsessive thinking F42.8 [facility] [address] [facility] [id number] [address] [place] [phone] Nov, [facility] [address] [facility] [id number] [address] [place] [phone] Oct, [facility] [address] [facility] [id number] [address] [place] [phone] Oct, [facility] [address] [facility] [id number] [address] [place] [phone] Oct, [facility] [address] [facility] [id number] [address] [place] [phone] Oct, [facility] [address] [facility] [id number] [address] [place] [phone] Oct, [facility] [address] [place] [id number] Oct, Generalized anxiety disorder F41.1 and Obsessive thinking F42.8 [facility] [address] [facility] [id number] [address] [place] [phone] Sep, [facility] [address] [facility] [id number] [address] [place] [phone] Sep, [facility] [address] [id number] [address] [place] [phone] Sep, [facility] [address] [id number] [address] [place] [phone] Sep, [facility] [address] [place] [id number] Sep, Generalized anxiety disorder F41.1 ; Obsessive thinking F42.8 and Mood disorder F39 [facility] [address] [id number] [address] [place] [phone] Sep, [facility] [address] [id number] [address] [place] [phone] Sep, [facility] [address] [place] [id number] Sep, [facility] [address] [id number] [address] [place] [phone] Sep, [facility] [address] [id number] [address] [place] [phone] Sep, [facility] [address] [place] [id number] Sep, Obsessive thinking F42.8 [facility] [address] [id number] [address] [place] [phone] Sep, [facility] [address] [id number] [address] [place] [phone] Sep, [facility] [address] [id number] [address] [place] [phone] Aug, [facility] [address] [id number] [address] [place] [phone] Aug, [facility] [address] [facility] [id number] [address] [place] [phone] Aug, Positive urine drug screen R 82.5 [facility] [address] [place] [id number] Aug, [facility] [address] [facility] [id number] [address] [place] [phone] Aug, [facility] [address] [facility] [id number] [address] [place] [phone] Aug, [facility] [address] [facility] [id number] [address] [place] [phone] 17 Aug, 2018 Irritable bowel syndrome wit h diarrhea K58.0 [facility] [address] [facility] [id number] [address] [place] [phone] Aug, [facility] [address] [facility] [id number] [address] [place] [phone] Aug, Obsessive thinking F42.8 ; I nsomnia, unspecified type G47.00 and Other chronic pain G89.29 [facility] [address] [place] [id number] Aug, Obsessive thinking F42.8 ; Irritable bowel syndrome with diarrhea K58.0 ; Pain in right foot M79.671 ; Pain of left foot M79.672 and Gastroesophageal reflux disease without esophagitis K21.9 [facility] [address] [facility] [id number] [address] [place] [phone] Aug, [facility] [address] [facility] [id number] [address] [place] [phone] Jul, [facility] [address] [facility] [id number] [address] [place] [phone] Jun, [facility] [address] [facility] [id number] [address] [place] [phone] Jun, [facility] [address] [place] [id number] Jun, Left lower quadrant pain R10.32 and Left leg pain M79.605 [facility] [address] [facility] [id number] [address] [place] [phone] Jun, [facility] [address] [place] [id number] Jun, Pain in left hip M25.552 ; Pain in right hip M25.551 and Primary insomnia F51.01 [facility] [address] [facility] [id number] [address] [place] [phone] Jun, [facility] [address] [place] [id number] May, [facility] [address] [facility] [id number] [address] [place] [phone] May, [facility] [address] [facility] [id number] [address] [place] [phone] May, [facility] [address] [place], [place] [id number] May, Mood disorder F39 [facility] [address] [facility] [id number] [address] [place] [phone] May, [facility] [address] [place] [id number] [address] [place] [phone] April, [facility] [address] [place], [place] [id number] April, Generalized anxiety disorder F41.1 ; Obsessive thinking F42.8 and Insomnia, unspecified type G47.00 [facility] [address] [place] [id number] [address] [place] [phone] April, [facility] [address] [place] [id number] [address] [place] [phone] April, Rash of face R21 [facility] [address] [facility] [id number] [address] [place] [phone] Mar, [facility] [address] [facility] [id number] [address] [place] [phone] Mar, [facility] [address] [facility] [id number] [address] [place] [phone] Mar, [facility] [address] [facility] [id number] [address] [place] [phone] Jan, [facility] [address] [place] [id number] [address] [place] [phone] Jan, [facility] [address] [place] [id number] Jan, Constipation, unspecified constipation type K59.00 and Other chronic pain G89.29 [place] [address] [facility] [id number] [address] [place] [phone] Jan, [facility] [address] [place] [id number] Jan, Obsessive thinking F42.8 and Coarse tremors G25.2 [place] [address] [id number] [place] [id number] Jan, [place] [address] [place] [id number] [place] [id number] Jan, [facility] [address] [place] [id number] Jan, Generalized anxiety disorder F41.1 ; Obsessive thinking F42.8 ; Callus of foot L84 and 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 [place] [address] [place] [id number] [address] [place] [phone] Dec, Generalized anxiety disorder F41.1 and Severe episode of recurrent major depressive disorder, without psychotic features F33.2 [place] [address] [place] [id number] [address] [place] [phone] Nov, [place] [address] [place] [id number] [address] [place] [phone] Nov, [facility] [address] [place] [id number] Nov, Oropharyngeal dysphagia R13.12 ; Generalized anxiety disorder F41.1 and 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 [place] [address] [place] [id number] [address] [place] [phone] Nov, [place] [id number] [facility] [id number] Nov, [place] [address] [id number] [address] [place] [phone] Nov, [facility] [address] [facility] [id number] [address] [place] [phone] Nov, [facility] [address] [facility] [id number] [address] [place] [phone] Oct, Constipation, unspecified co nstipation type K59.00 and Mood disorder F39 [facility] [address] [facility] [id number] [address] [place] [phone] Oct, [facility] [address] [id number] [place] [id number] Sep, [facility] [address] [id number] [place] [id number] Sep, [facility] [address] [id number] [place] [id number] Sep, [facility] [address] [id number] [place] [id number] Sep, [facility] [address] [place] [id number] Sep, Generalized abdominal pain R10.84 [facility] [address] [facility] [id number] [address] [place] [phone] Sep, [facility] [address] [id number] [place] [id number] Sep, Generalized anxiety disorder F41.1 and P rimary insomnia F51.01 [facility] [address] [id number] [place] [id number] Aug, [facility] [address] [id number] [place] [id number] Aug, Generalized anxiety disorder F41.1 [facility] [address] [facility] [id number] [address] [place] [phone] Jul, [facility] [address] [place] [id number] Jul, Obsessive thinking F42.8 [facility] [address] [facility] [id number] [address] [place] [phone] Jul, Generalized anxiety disorder F41.1 and Irritable bowel syndrome with diarrhea K58.0 [facility] [address] [id number] [place]IME[place] [id number] Jul, Generalized anxiety disorder F41.1 [facility] [address] [id number] [place] [id number] Jun, Generalized anxiety disorder F41.1 [facility] [address] [facility] [id number] [address] [place] [phone] May, [facility] [address] [place], [place] [id number] May, Generalized anxiety disorder F41.1 ; Irritable bowel syndrome with diarrhea K58.0 and Coarse tremors G25.2 [facility] [address] [facility] [id number] [address] [place] [phone] April, [facility] [address] [facility] [id number] [address] [place] [phone] April, [facility] [address] [facility] [id number] [address] [place] [phone] April, [facility] [address] [place] [facility] [id number] [address] [place] [address] Mar, [facility] [address] [place], [place] [id number] Mar, Severe episode of recurrent major depressive disorder, without psychotic features F33.2 and Pain in left hip M25.552 [facility] [address] [facility] [id number] [address] [place] [address] Mar, [facility] [address] [facility] [id number] [address] [place] [address] Mar, [facility] [address] [facility] [id number] [address] [place] [address] Mar, [facility] [address] [facility] [id number] [address] [place] [address] Mar, Pain in right hip M25.551 an d Self-care deficit in patient living alone R46.89 [facility] [address] [facility] [id number] [address] [place] [address] Jan, Other chronic pain G89.29 ; Pain in left hip M25.552 and Slow transit constipation K59.01 [facility] [address] [facility] [id number] [address] [place] [address] Jan, [facility] [address] [address] Dec, Other depression F32.89 ; Co nstipation, unspecified constipation type K59.00 and Insomnia, unspecified type G47.00 [facility] [address] [address] Nov, Reactive depression F32.9 ; Chronic idiopathic constipation K59.04 ; Generalized anxiety disorder F41.1 ; Coarse tremors G25.2 ; Gastroesophageal reflux disease without esophagitis K21.9 ; Dysthymic disorder F34.1 ; Vitamin deficiency, unspecified E56.9 and Primary insomnia F51.01 [facility] [address] [place] [id number] [address] [place] [address] Nov, [facility] [address] [place] [id number] [address] [place] [phone] Nov, [place] [address] [place] [id number] [address] [place] [address] Nov, [place] [address] [address] Nov, Reactive depression F32.9 ; Essential hypertension [...] intake D50.8 and Vitamin deficiency, unspecified E56.9 [facility] [address] [facility] [id number] [address] [place] [phone] Oct, [facility] [address] [facility] [id number] [address] [place] [phone] Oct, [facility] [address] [facility] [id number] [address] [place] [address] Oct, [facility] [address] [facility] [id number] [place] [address] 16 Oct, 2016 Generalized anxiety disorder F41.1 ; Poor appetite R63.0 ; Dehydration E86.0 and Failure to thrive in adult R62.7 [place] [address] [place] [id number] [address] [place] [id number] 07 Oct, 2016 Generalized anxiety disorder F41.1 and Failure to thrive in adult R62.7 [facility] [address] [facility] [id number] [address] [place] [address] Oct, [facility] [address] [place] [id number] [address] [place] [phone] Oct, [facility] [address] [facility] [id number] [address] [place] [address] Sep, Vaginal discharge N89.8 and Acute cystitis with hematuria N30.01 [facility] [address] [facility] [id number] [address] [place] [phone] Sep, [facility] [address] [place] [id number] [address] [place] [phone] Sep, [facility] [address] [facility] [id number] [address] [place] [address] Sep, Dysthymic disorder F34.1 ; A cute vaginitis N76.0 ; Dysuria R30.0 and Vaginal yeast infection B37.3 [facility] [address] [facility] [id number] [address] [place] [phone] Aug, [facility] [address] [facility] [id number] [place] [phone] Aug, [facility] [address] [facility] [id number] [address] [place] [phone] Aug, Foul smelling urine R82.90 ; Rapid heart rate R00.0 and Flatulence R14.3 [facility] [address] [facility] [id number] [address] [place] [address] Aug, [facility] [address] [place] [id number] [place] [address] Jul, Constipation, unspecified co nstipation type K59.00 ; Weak R53.1 ; Poor appetite R63.0 ; Coronary artery disease involving [place] heart without angina pectoris, unspecified vessel or lesion type I25.10 ; Fatigue, unspecified type R53.83 ; Urinary incontinence, unspecified type R32 and Insomnia, unspecified type G47.00 [facility] [address] [facility] [id number] [address] [place] [address] Jul, [facility] [address] [place] [id number] [address] [place] [address] Jun, Dysuria R30.0 [facility] [id number] [place] [address] Jun, [facility] [address] [place] [id number] [address] [place] [address] Jun, Urinary tract infection, sit e not specified N39.0 ; Acute vaginitis N76.0 and Diarrhea, unspecified type R19.7 [facility] [address] [facility] [id number] [address] [place] [address] May, [facility] [address] [place] [id number] [address] [place] [phone] April, [facility] [address] [facility] [id number] [address] [place] [id number] 13 Apr, 2016 Encounter for dental examina tion Z01.20 [facility] [address] [id number] [address] [place] [phone] April, [facility] [address] [facility] [id number] [address] [place] [address] April, Tremor R25.1 and Episodic te nsion-type headache, not intractable G44.219 [facility] [address] [id number] [address] [place] [address] Mar, [facility] [address] [facility] [id number] [address] [place] [phone] Jan, Mood disorder F39 [facility] [address] [facility] [id number] [address] [place] [phone] Jan, [facility] [address] [facility] [id number] [address] [place] [phone] Jan, [facility] [address] [facility] [id number] [address] [place] [phone] Jan, [facility] [address] [facility] [id number] [address] [place] [id number] Jan, [facility] [address] [facility] [id number] [address] [place] [phone] Jan, [facility] [address] [facility] [id number] [address] [place] [phone] Jan, [facility] [address] [facility] [id number] [address] [place] [phone] Dec, Acute diarrhea R19.7 [facility] [address] [facility] [id number] [address] [place] [phone] Dec, [facility] [address] [facility] [id number] [address] [place] [phone] Dec, [facility] [address] [facility] [id number] [address] [place] [phone] Dec, [facility] [address] [facility] [id number] [address] [place] [phone] Dec, N&V (nausea and vomiting) R1 1.2 [facility] [address] [facility] [id number] [address] [place] [phone] Dec, Generalized anxiety disorder F41.1 [facility] [address] [facility] [id number] [place] [address] Dec, Generalized anxiety disorder F41.1 [facility] [address] [place] [id number] [place] [address] Nov, Post concussion syndrome F07 .81 [facility] [address] [place] [id number] [place] [address] Nov, Generalized anxiety disorder F41.1 [facility] [address] [address] Nov, [facility] [address] [address] Nov, Generalized anxiety disorder F41.1 [facility] [address] [place] [id number] [place] [id number] Oct, Dental caries K02.9 [facility] [address] [address] Oct, [facility] [address] [id number] Oct, Dental examination Z01.20 [facility] [address] [place] [id number] Oct, Encounter for dental examina tion Z01.20 [facility] [address] [place] [id number] [address] [place] [phone] 09 Oct, 2015 CAD (coronary artery disease ) I25.10 [facility] [address] [place] [id number] [address] [place] [phone] Sep, Generalized anxiety disorder F41.1 [facility] [address] [address] Sep, [facility] [address] [address] Sep, Rash and other nonspecific s kin eruption R21 and Yeast vaginitis B37.3 [facility] [address] [address] Sep, Generalized anxiety disorder F41.1 [facility] [address] [address] Aug, Insect bites 919.4 and Hemor rhoids 455.6 [facility] [address] [address] Aug, Generalized anxiety disorder 300.02 [facility] [address] [id number] 08 Aug, 2015 [facility] [address] [address] Aug, [facility] [address] [address] Aug, Generalized anxiety disorder 300.02 ; No condition on [place] Heart II V71.09 ; Heart problem 429.9 and Hypertension 401.9 [facility] [address] [address] Aug, [facility] [address] [address] Jul, [facility] [address] [address] Jul, [facility] [address] [address] Jul, [facility] [address] [address] Jul, [facility] [address] [id number] [address] [place] [phone] Jul, Rash 782.1 [facility] [address] [id number] [address] [place] [id number] Jul, UTI (urinary tract infection ) 599.0 [facility] [address] [id number] [address] [place] [phone] Jul, [facility] [address] [id number] [address] [place] [phone] Jun, Dysthymia 300.4 and Anxiety 300.00 [facility] [address] [id number] [address] [place] [address] Jun, 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 [facility] [address] [id number] [address] [place] [phone] May, [facility] [address] [id number] [address] [place] [phone] May, [facility] [address] [id number] [address] [place] [phone] May, Unspecified breast screening V76.10 [facility] [address] [id number] [address] [place] [address] [id number] May, Dental examination V72.2 [facility] [address] [id number] [address] [place] [phone] April, [facility] [address] [id number] [address] [place] [phone] April, [facility] [address] [id number] [address] [place] [address] [id number] April, Dental examination V72.2 [facility] [address] [id number] [address] [place] [address] [id number] April, Dental examination V72.2 [facility] [address] [id number] [address] [place] [phone] 14 Mar, 2015 [facility] [address] [id number] [address] [place] [address], [place] [address] 13 Mar, 2015 [facility] [address] [id number] [address] [place] [address], [place] [address] 25 Jan, 2015 [facility] [address] [id number] [address] [place] [address], [place] [address] 25 Jan, 2015 [facility] [address] [id number] [address] [place] [address], [place] [address] 18 Jan, 2015 [facility] [address] [id number] [address] [place] [address], [place] [address] 18 Jan, 2015 [facility] [address] [id number] [address] [place] [address], [place] [address] 16 Jan, 2015 [facility] [address] [id number] [address] [place] [address], [place] [address] 16 Jan, 2015 [facility] [address] [id number] [address] [place] [address], [place] [address] 13 Jan, 2015 [facility] [address] [id number] [address] [place] [address], [place] [address] 13 Jan, 2015 [facility] [address] [id number] [address] [place] [address], [place] [address] 11 Jan, 2015 [facility] [address] [id number] [address] [place] [address], [place] [address] 11 Jan, 2015 [facility] [address] [id number] [address] [place] [address], [place] [address] 11 Jan, 2015 [facility] [address] [id number] [address] [place] [address], [place] [address] Jan, [facility] [address] [id number] [address] [place] [address], [place] [address] 09 Jan, 2015 [facility] [address] [id number] [address] [place] [address], [place] [address] 09 Jan, 2015 [facility] [address] [id number] [address] [place] [address], [place] [address] Jan, 2014 [facility] [address] [id number] [address] [place] [address], [place] [address] Jan, 2014 [facility] [address] [id number] [address] [place] [address], [place] [address] Jan, 2014 [facility] [address] [id number] [address] [place] [address], [place] [address] Jan, 2014 [facility] [address] [id number] [address] [place] [address], [place] [address] Jan, 2014 [facility] [address] [id number] [address] [place] [address], [place] [address] Jan, 2014 [facility] [address] [id number] [address] [place] [address], [place] [address] Jan, [facility] [address] [id number] [address] [place] [address], [place] [address] Jan, [facility] [address] [id number] [address] [place] [address], [place] [address] Dec, [facility] [address] [id number] [address] [place] [address], [place] [address] Dec, [facility] [address] [id number] [address] [place] [address], [place] [address] Dec, [facility] [address] [id number] [address] [place] [address], [place] [address] Dec, [facility] [address] [id number] [address] [place] [address], [place] [address] Nov, [facility] [address] [id number] [address] [place] [address], [place] [address] Nov, [facility] [address] [id number] [address] [place] [address], [place] [address] Nov, [facility] [address] [id number] [address] [place] [address], [place] [address] Nov, [facility] [address] [id number] [address] [place] [address], [place] [address] Nov, [facility] [address] [id number] [address] [place] [address], [place] [address] Nov, [facility] [address] [id number] [address] [place] [address], [place] [address] Nov, [facility] [address] [id number] [address] [place] [address], [place] [address] Oct, [facility] [address] [id number] [address] [place] [address], [place] [address] Oct, [facility] [address] [id number] [address] [place] [address], [place] [address] Oct, [facility] [address] [id number] [address] [place] [address], [place] [address] Oct, [facility] [address] [id number] [address] [place] [address], [place] [address] Oct, [facility] [address] [id number] [address] [place] [address], [place] [address] Oct, [facility] [address] [id number] [address] [place] [address], [place] [address] Oct, [facility] [address] [id number] [address] [place] [address], [place] [address] Oct, [facility] [address] [id number] [address] [place] [address], [place] [address] Oct, [facility] [address] [id number] [address] [place] [address], [place] [address] Oct, [facility] [address] [id number] [address] [place] [address], [place] [address] Oct, [facility] [address] [id number] [address] [place] [address], [place] [address] Oct, [facility] [address] [id number] [address] [place] [address], [place] [address] Sep, [facility] [address] [id number] [address] [place] [address], [place] [address] Sep, [facility] [address] [id number] [address] [place] [address], [place] [address] Sep, [facility] [address] [id number] [address] [place] [address], [place] [address] Sep, [facility] [address] [id number] [address] [place] [address], [place] [address] Jul, [facility] [address] [id number] [address] [place] [address], [place] [address] Jul, [facility] [address] [id number] [address] [place] [address], [place] [address] Jul, [facility] [address] [id number] [address] [place] [address], [place] [address] Jul, [facility] [address] [id number] [address] [place] [address], [place] [address] Jun, [facility] [address] [id number] [address] [place] [address], [place] [address] Jun, [facility] [address] [id number] [address] [place] [address], [place] [address] Jun, [facility] [address] [id number] [address] [place] [address], [place] [address] Jun, [facility] [address] [id number] [address] [place] [address], [place] [address] May, [facility] [address] [id number] [address] [place] [address], [place] [address] May, [facility] [address] [id number] [address] [place] [address], [place] [address] April, [facility] [address] [id number] [address] [place] [address], [place] [address] April, [facility] [address] [id number] [address] [place] [address], [place] [address] April, [facility] [address] [id number] [address] [place] [address], [place] [address] April, [facility] [address] [id number] [address] [place] [address], [place] [address] April, [facility] [address] [id number] [address] [place] [address], [place] [address] April, [facility] [address] [id number] [address] [place] [address], [place] [address] April, [facility] [address] [id number] [address] [place] [address], [place] [address] April, [facility] [address] [id number] [address] [place] [address], [place] [address] April, [facility] [address] [id number] [address] [place] [address], [place] [address] Mar, [facility] [address] [id number] [address] [place] [address], [place] [address] Mar, [facility] [address] [id number] [address] [place] [address], [place] [address] Mar, [facility] [address] [id number] [address] [place] [address], [place] [address] Mar, [facility] [address] [id number] [address] [place] [address], [place] [address] Jan, [facility] [address] [id number] [address] [place] [address], [place] [address] Jan, [facility] [address] [id number] [address] [place] [address], [place] [address] Jan, [facility] [address] [id number] [address] [place] [address], [place] [address] Jan, [facility] [address] [id number] [address] [place] [address], [place] [address] 10 Jan, 2014 [facility] [address] [id number] [address] [place] [address], [place] [address] 10 Jan, 2014 [facility] [address] [id number] [address] [place] [address], [place] [address] Jan, [facility] [address] [id number] [address] [place] [address], [place] [address] Jan, [facility] [address] [id number] [address] [place] [address], [place] [address] Jan, [facility] [address] [id number] [address] [place] [address], [place] [address] Jan, [facility] [address] [id number] [address] [place] [address], [place] [address] Jan, [facility] [address] [id number] [address] [place] [address], [place] [address] Jan, [facility] [address] [id number] [address] [place] [address], [place] [address] Dec, [facility] [address] [id number] [address] [place] [address], [place] [address] Dec, [facility] [address] [id number] [address] [place] [address], [place] [address] Dec, [facility] [address] [id number] [address] [place] [address], [place] [address] Dec, [facility] [address] [address] [id number] [address] [place] [address], [place] [address] Nov, [facility] [address] [id number] [address] [place] [address], [place] [address] Nov, [facility] [address] [id number] [address] [place] [address], [place] [address] Nov, [facility] [address] [id number] [address] [place] [address], [place] [address] Nov, [facility] [address] [id number] [address] [place] [address], [place] [address] Oct, [facility] [address] [id number] [address] [place] [address], [place] [address] Oct, [facility] [address] [id number] [address] [place] [address], [place] [address] Sep, [facility] [address] [id number] [address] [place] [address], [place] [address] Sep, [facility] [address] [id number] [address] [place] [address], [place] [address] Jul, [facility] [address] [id number] [address] [place] [address], [place] [address] Jul, [facility] [address] [id number] [address] [place] [address], [place] [address] Jun, [facility] [address] [id number] [address] [place] [address], [place] [address] Jun, [facility] [address] [id number] [address] [place] [address], [place] [address] Jun, [facility] [address] [id number] [address] [place] [address], [place] [address] May, [facility] [address] [id number] [address] [place] [address], [place] [address] May, [facility] [address] [id number] [address] [place] [address], [place] [address] May, [facility] [address] [id number] [address] [place] [address], [place] [address] May, [facility] [address] [id number] [address] [place] [address], [place] [address] May, [facility] [address] [id number] [address] [place] [address], [place] [address] April, [facility] [address] [id number] [address] [place] [address], [place] [address] April, [facility] [address] [id number] [address] [place] [address], [place] [address] April, [facility] [address] [id number] [address] [place] [address], [place] [address] April, [facility] [address] [id number] [address] [place] [address], [place] [address] April, [facility] [address] [id number] [address] [place] [address], [place] [address] April, [facility] [address] [id number] [address] [place] [address], [place] [address] Mar, [facility] [address] [id number] [address] [place] [address], [place] [address] Mar, [facility] [address] [id number] [address] [place] [address], [place] [address] Jan, [facility] [address] [id number] [address] [place] [address], [place] [address] Jan, [facility] [address] [id number] [address] [place] [address], [place] [address] Jan, [facility] [address] [id number] [address] [place] [address], [place] [address] Jan, [facility] [address] [id number] [address] [place] [address], [place] [address] Jan, [facility] [address] [id number] [address] [place] [address], [place] [address] Jan, [facility] [address] [id number] [address] [place] [address], [place] [address] Jan, [facility] [address] [id number] [address] [place] [address], [place] [address] Jan, [facility] [address] [id number] [address] [place] [address], [place] [address] Jan, [facility] [address] [id number] [address] [place] [address], [place] [address] Jan, [facility] [address] [id number] [address] [place] [address], [place] [address] Jan, [facility] [address] [id number] [address] [place] [address], [place] [address] Dec, [facility] [address] [id number] [address] [place] [address], [place] [address] Nov, [facility] [address] [id number] [address] [place] [address], [place] [address] Nov, [facility] [address] [id number] [address] [place] [address], [place] [address] Nov, [facility] [address] [id number] [address] [place] [address], [place] [address] Nov, [facility] [address] [id number] [address] [place] [address], [place] [address] Nov, [facility] [address] [id number] [address] [place] [address], [place] [address] Nov, [facility] [address] [id number] [address] [place] [address], [place] [address] Nov, [facility] [address] [id number] [address] [place] [address], [place] [address] Nov, [facility] [address] [id number] [address] [place] [address], [place] [address] Nov, [facility] [address] [id number] [address] [place] [address], [place] [address] Nov, [facility] [address] [id number] [address] [place] [address], [place] [address] Nov, [facility] [address] [id number] [address] [place] [address], [place] [address] Nov, [facility] [address] [id number] [place] [address] Nov, [facility] [address] [id number] [address] [place] [address], [place] [address] Oct, [facility] [address] [id number] [address] [place] [address], [place] [address] Oct, [facility] [address] [id number] [address] [place] [address], [place] [address] Oct, [facility] [address] [id number] [address] [place] [address] Sep, [facility] [address] [id number] [address] [place] [address], [place] [address] Sep, [facility] [address] [id number] [address] [place] [address], [place] [address] Sep, [facility] [address] [id number] [address] [place] [address], [place] [address] Sep, [facility] [address] [id number] [address] [place] [address], [place] [address] Aug, [facility] [address] [id number] [address] [place] [address], [place] [address] 20 Aug, 2012 [facility] [address] [id number] [address] [place] [address], [place] [address] 24 Jul, 2012 [facility] [address] [id number] [address] [place] [address] May, [facility] [address] [id number] [address] [place] [address] May, [facility] [address] [id number] [address] [place] [address], [place] [address] May, [facility] [address] [id number] [address] [place] [address] April, [facility] [address] [id number] [address] [place] [address] Mar, [facility] [address] [id number] [address] [place] [address], [place] [address] 10 Mar, 2012 [facility] [address] [id number] [address] [place] [address], [place] [address] Mar, [facility] [address] [id number] [address] [place] [address], [place] [address] Jan, [facility] [address] [id number] [address] [place] [address], [place] [address] Jan, [facility] [address] [id number] [address] [place] [address], [place] [address] Jan, [facility] [address] [id number] [address] [place] [address], [place] [address] Dec, [facility] [address] [id number] [address] [place] [address], [place] [address] Dec, [facility] [address] [id number] [address] [place] [address], [place] [address] Dec, [facility] [address] [id number] [address] [place] [address], [place] [address] Dec, [facility] [address] [id number] [address] [place] [address], [place] [address] Nov, [facility] [address] [id number] [address] [place] [address], [place] [address] Nov, [facility] [address] [id number] [address] [place] [address], [place] [address] Nov, [facility] [address] [id number] [address] [place] [address], [place] [address] Oct, [facility] [address] [id number] [address] [place] [address], [place] [address] 31 Sep, 2011 [facility] [address] [id number] [address] [place] [address], [place] [address] 26 Sep, 2011 [facility] [address] [id number] [address] [place] [address], [place] [address] 13 Sep, 2011 [facility] [address] [id number] [address] [place] [address], [place] [address] 15 Nov, 2010 [facility] [address] [id number] [address] [place] [address], [place] [address] 23 Oct, 2010 [facility] [address] [id number] [address] [place] [address], [place] [address] 19 Oct, 2010 [facility] [address] [id number] [address] [place] [address], [place] [address] 18 Oct, 2010 [facility] [address] [id number] [address] [place] [address], [place] [address] 16 Oct, 2010 [facility] [address] [id number] [address] [place] [address], [place] [address] Sep, [facility] [address] [id number] [address] [place] [address], [place] [address] April, [facility] [address] [id number] [address] [place] [id number] 29 Nov, 2009 [facility] [address] [id number] [address] [place] [address], [place] [address] 24 Nov, 2009 [facility] [address] [id number] [address] [place] [address] 22 Nov, 2009 [facility] [address] [id number] [address] [place] [address] Nov, [facility] [address] [id number] [address] [place] [address] 10 Nov, 2009 [facility] [address] [id number] [address] [place] [address] 19 Oct, 2009 [facility] [address] [id number] [address] [place] [address] 02 Oct, 2009 [facility] [address] [id number] [address] [place] [address] 13 Sep, 2009 [facility] [address] [id number] [address] [place] [address] Jan, IMMUNIZATIONS No Known Immunizations SOCIAL HISTORY [...] History Intertrechanteric hip fx 04/27/16 [facility] in past in [place] oct 2016 [facility]
--- OUTSIDE RECORDS SUMMARY | 2020-04-18 20:11 | XMS REPORT ---
Author Author Ave AGUIRRE Organization [facility] Address [address] [place] [address] Care Team Providers Care Billing Assistant Name Role Phone WOLF AGUIRRE Unavailable PROBLEMS Type Condition ICD9-CM Code RLM58-IO Code Onset Dates Condition S tatus SNOMED Code Problem Dysthymic disorder F34.1 Active 7 [id number] Problem Poor appetite R63.0 Active 286068 06 Problem Failure to thrive in adult R62.7 Act mishel [id number] Problem Coarse tremors G25.2 Active 13581 004 Problem Iron deficiency anemia secondary to inadequate d ietary iron intake D50.8 Active 221355224 Problem Atherosclerotic heart diseas e of [place] 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 Active [id number] Problem Reactive depression F32.9 Active 56530208 Problem 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 Active 2539681 04 Problem Vascular dementia with behavior disturbance F01.51 Active 457528146104743 Problem Oropharyngeal dysphagia R13.12 Active 71201667 Problem Sundowning F05 Active 041172754 Problem Generalized anxiety disorder F41.1 A ctive 55946433 Problem Constipation, unspecified constipation type K59.00 Active 25536573 Problem Insomnia, unspecified type G47.00 Act mishel 708278920 Problem Essential hypertension I10 Active 51390703 Problem Slow transit constipation K59.01 Acti ve 45619266 Problem Other chronic pain G89.29 Active 8 7163839 Problem Irritable bowel syndrome with diarrhea K58.0 Active 193053485 Problem Severe episode of recurrent major depressive disorder, without psychotic features F33.2 Active 58234375 Problem 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 Active 1819 3002 Problem Mood disorder F39 Active 609390 05 Problem Obsessive thinking F42.8 Active 6 2723947 Problem Dementia in other diseases c lassified elsewhere with behavioral disturbance F02.81 Active 247169134 Problem Alzheimer''s disease with late onset G30.1 Active 083403511 Problem Dyspepsia K30 Active 021790168 Problem Primary insomnia F51.01 Active 397 2004 Problem Falling R29.6 Active 188180312 Problem Other chronic pain G89.29 Active 8 1967132 Problem Gastroesophageal reflux disease without esophagitis K21.9 Active 019282295 Problem Acute on chronic systolic congestive heart failure I50.23 Active 598935244 Problem Coronary artery disease invo lving [place] coronary artery of [place] heart without angina pectoris I25.10 Active 1641 911138832 Problem Restless legs G25.81 Active 343227 08 Problem HTN (hypertension) I10 Active 3 1810987 ALLERGIES No Information ENCOUNTERS Encounter Location Date Diagnosis [facility] [address] [facility] [id number] [address] [place] [id number] 08 Apr, 2020 Generalized anxiety disorder F41.1 [facility] [address] [facility] [id number] [address] [place] [phone] 04 Apr, 2020 [facility] [address] [facility] [id number] [address] [place] [phone] April, [facility] [address] [facility] [id number] [address] [place] [phone] 28 Mar, 2020 [facility] [address] [facility] [id number] [address] [place] [phone] 16 Mar, 2020 [facility] [address] [facility] [id number] [address] [place] [phone] 15 Mar, 2020 Nausea R11.0 [facility] [address] [facility] [id number] [address] [place] [phone] 10 Mar, 2020 [facility] [address] [facility] [id number] [address] [place] [phone] 09 Mar, 2020 Falling R29.6 [facility] [address] [facility] [id number] [address] [place] [phone] 08 Mar, 2020 [facility] [address] [facility] [id number] [address] [place] [phone] 07 Mar, 2020 Generalized anxiety disorder F41.1 [facility] [address] [id number] [address] [place] [phone] 02 Mar, 2020 [facility] [address] [id number] [address] [place] [phone] 27 Jan, 2020 [facility] [address] [place] [id number] Jan, Generalized anxiety disorder F41.1 and Pressure sore on ankle, right, unstageable L89.510 [facility] [address] [id number] [address] [place] [phone] Jan, [facility] [address] [id number] [address] [place] [phone] Jan, [facility] [address] [facility] [id number] [address] [place] [phone] Jan, Weakness R53.1 [facility] [address] [id number] [address] [place] [id number] 20 Jan, 2020 [facility] [address] [facility] [id number] [address] [place] [phone] 10 Jan, 2020 Generalized anxiety disorder F41.1 [facility] [address] [id number] [address] [place] [phone] 08 Jan, 2020 Nausea R11.0 [facility] [address] [facility] [id number] [address] [place] [phone] 03 Jan, 2020 Dyspepsia K30 [facility] [address] [id number] [address] [place] [phone] Jan, [facility] [address] [facility] [id number] [address] [place] [phone] Jan, [facility] [address] [facility] [id number] [address] [place] [phone] Jan, [facility] [address] [facility] [id number] [address] [place] [phone] Jan, [facility] [address] [facility] [id number] [address] [place] [phone] Jan, [facility] [address] [place] [id number] Jan, Generalized anxiety disorder F41.1 [facility] [address] [facility] [id number] [address] [place] [phone] 18 Jan, [address] [facility] [address] [id number] Jan, Coronary artery disease involving [place] coronary artery of [place] heart without angina pectoris I25.10 [facility] [address] [facility] [id number] [address] [place] [phone] Jan, [facility] [address] [place] [id number] [address] [place] [phone] Dec, Atherosclerotic heart diseas e of [place] 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 [place] [address] [place] [id number] [address] [place] [phone] Dec, [facility] [address] [place] [id number] Dec, Mood disorder F39 ; Acute on chronic systolic congestive heart failure I50.23 ; Obsessive thinking F42.8 and HTN (hypertension) I10 [address] [id number] Nov, Cough R05 [place] [id number] [place] [phone] Nov, [facility] [address] [place] [id number] [address] [place] [phone] Oct, [facility] [address] [id number] Oct, Obsessive thinking F42.8 ; Generalized anxiety disorder F41.1 ; Primary insomnia F51.01 and Restless legs G25.81 [facility] [address] [place] [id number] [address] [place] [phone] Sep, [facility] [address] [id number] Aug, Coronary artery disease involving [place] coronary artery of [place] heart without angina pectoris I25.10 [facility] [address] [id number] [address] [place] [phone] Jul, [facility] [address] [id number] [address] [place] [phone] Jul, [facility] [address] [id number] [address] [place] [phone] Jul, [facility] [address] [id number] [address] [place] [phone] Jul, [facility] [address] [id number] [address] [place] [phone] Jul, [facility] [address] [place] [id number] Jun, Acute on chronic systolic congestive heart failure I50.23 and Atherosclerotic heart disease of [place] 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 [facility] [address] [id number] [address] [place] [phone] Jun, [facility] [address] [id number] [address] [place] [phone] Jun, [facility] [address] [id number] [address] [place] [phone] Jun, [facility] [address] [id number] [address] [place] [phone] Jun, [facility] [address] [id number] [address] [place] [phone] Jun, [facility] [address] [id number] [address] [place] [phone] Jun, [facility] [address] [id number] [address] [place] [phone] Jun, [facility] [address] [place] [id number] May, Pressure injury of right ankle, stage 2 L89.512 and Constipation, unspecified constipation type K59.00 [facility] [address] [id number] [address] [place] [phone] May, [facility] [address] [place] [id number] April, Constipation, unspecified constipation type K59.00 ; Pressure injury of right ankle, stage 1 L89.511 and Vascular dementia with behavior disturbance F01.51 [facility] [address] [id number] [address] [place] [phone] Mar, [facility] [address] [id number] [address] [place] [phone] Mar, [facility] [address] [id number] [address] [place] [phone] Mar, [facility] [address] [id number] [address] [place] [phone] Mar, [facility] [address] [id number] [address] [place] [phone] Jan, [facility] [address] [id number] [address] [place] [phone] Jan, [facility] [address] [id number] [address] [place] [phone] Jan, [facility] [address] [place] [id number] Jan, Pneumonia due to infectious organism, unspecified laterality, unspecified part of lung J18.9 ; Fall from bed, sequela W06.XXXS ; Hyponatremia E87.1 and Slow transit constipation K59.01 [facility] [address] [id number] [address] [place] [phone] Jan, [facility] [address] [id number] [address] [place] [phone] Jan, [facility] [address] [id number] [address] [place] [phone] Jan, [facility] [address] [facility] [id number] [address] [place] [phone] Dec, [facility] [address] [place] [id number] Dec, Other depression F32.89 ; Alzheimer''s disease with late onset G30.1 and Dementia in other diseases classified elsewhere with behavioral disturbance F02.81 [facility] [address] [facility] [id number] [address] [place] [phone] Dec, [facility] [address] [place] [id number] Dec, [facility] [address] [place] [id number] Nov, Generalized anxiety disorder F41.1 and Obsessive thinking F42.8 [facility] [address] [facility] [id number] [address] [place] [phone] Nov, [facility] [address] [facility] [id number] [address] [place] [phone] Oct, [facility] [address] [facility] [id number] [address] [place] [phone] Oct, [facility] [address] [facility] [id number] [address] [place] [phone] Oct, [facility] [address] [facility] [id number] [address] [place] [phone] Oct, [facility] [address] [facility] [id number] [address] [place] [phone] Oct, [facility] [address] [place] [id number] Oct, Generalized anxiety disorder F41.1 and Obsessive thinking F42.8 [facility] [address] [facility] [id number] [address] [place] [phone] Sep, [facility] [address] [facility] [id number] [address] [place] [phone] Sep, [facility] [address] [facility] [id number] [address] [place] [phone] Sep, [facility] [address] [id number] [address] [place] [phone] Sep, [facility] [address] [place] [id number] Sep, Generalized anxiety disorder F41.1 ; Obsessive thinking F42.8 and Mood disorder F39 [facility] [address] [id number] [address] [place] [phone] Sep, [facility] [address] [id number] [address] [place] [phone] Sep, [facility] [address] [place] [id number] Sep, [facility] [address] [id number] [address] [place] [phone] Sep, [facility] [address] [id number] [address] [place] [phone] Sep, [facility] [address] [place] [id number] Sep, Obsessive thinking F42.8 [facility] [address] [id number] [address] [place] [phone] Sep, [facility] [address] [id number] [address] [place] [phone] Sep, [facility] [address] [id number] [address] [place] [phone] Aug, [facility] [address] [id number] [address] [place] [phone] Aug, [facility] [address] [id number] [address] [place] [phone] Aug, Positive urine drug screen R 82.5 [facility] [id number] Aug, [facility] [address] [id number] [address] [place] [phone] Aug, [facility] [address] [facility] [id number] [address] [place] [phone] Aug, [facility] [address] [facility] [id number] [address] [place] [phone] 17 Aug, 2018 Irritable bowel syndrome wit h diarrhea K58.0 [facility] [address] [facility] [id number] [address] [place] [phone] Aug, [facility] [address] [facility] [id number] [address] [place] [phone] Aug, Obsessive thinking F42.8 ; I nsomnia, unspecified type G47.00 and Other chronic pain G89.[address] [facility] [address] [id number] Aug, Obsessive thinking F42.8 ; Irritable bowel syndrome with diarrhea K58.0 ; Pain in right foot M79.671 ; Pain of left foot M79.672 and Gastroesophageal reflux disease without esophagitis K21.9 [facility] [address] [facility] [id number] [address] [place] [phone] Aug, [facility] [address] [facility] [id number] [address] [place] [phone] Jul, [facility] [address] [facility] [id number] [address] [place] [phone] Jun, [place] [address] [place] [id number] [address] [place] [phone] Jun, [facility] [address] [id number] Jun, Left lower quadrant pain R10.32 and Left leg pain M79.605 [place] [address] [facility] [id number] [address] [place] [phone] Jun, [facility] [address] [place] [id number] Jun, Pain in left hip M25.552 ; Pain in right hip M25.551 and Primary insomnia F51.01 [place] [address] [id number] [address] [place] [phone] Jun, [facility] [address] [place] [id number] May, [facility] [address] [id number] [address] [place] [phone] May, [facility] [address] [facility] [id number] [address] [place] [phone] May, [facility] [address] [place] [id number] May, Mood disorder F39 [facility] [address] [id number] [address] [place] [phone] May, [facility] [address] [facility] [id number] [address] [place] [phone] April, [facility] [id number] April, Generalized anxiety disorder F41.1 ; Obsessive thinking F42.8 and Insomnia, unspecified type G47.00 [facility] [address] [id number] [address] [place] [phone] April, [facility] [address] [facility] [id number] [address] [place] [phone] April, Rash of face R21 [facility] [address] [facility] [id number] [address] [place] [phone] Mar, [facility] [address] [facility] [id number] [address] [place] [phone] Mar, [facility] [address] [facility] [id number] [address] [place] [phone] Mar, [facility] [address] [facility] [id number] [address] [place] [phone] Jan, [facility] [address] [facility] [id number] [address] [place] [phone] Jan, [facility] [address] [place] [id number] Jan, Constipation, unspecified constipation type K59.00 and Other chronic pain G89.29 [place] [address] [phone] Jan, [facility] [id number] Jan, Obsessive thinking F42.8 and Coarse tremors G25.2 [place] [address] [place] [id number] [facility] [place] [id number] Jan, [place] [address] [place] [id number] [facility] [place] [id number] Jan, [facility] [address] [id number] Jan, Generalized anxiety disorder F41.1 ; Obsessive thinking F42.8 ; Callus of foot L84 and 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 [place] [address] [id number] Dec, Generalized anxiety disorder F41.1 and Severe episode of recurrent major depressive disorder, without psychotic features F33.2 [place] [address] [place] [id number] [address] [place] [phone] Nov, [place] [address] [phone] Nov, [facility] [id number] Nov, Oropharyngeal dysphagia R13.12 ; Generalized anxiety disorder F41.1 and 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 [place] [address] [place] [id number] [address] [place] [phone] Nov, [place] [address] [place] [id number] [place] [address], [place] [id number] Nov, [place] [address] [place] [id number] [address] [place] [phone] Nov, [place] [address] [facility] [id number] [address] [place] [phone] Nov, [facility] [address] [facility] [id number] [address] [place] [phone] Oct, Constipation, unspecified co nstipation type K59.00 and Mood disorder F39 [facility] [address] [facility] [id number] [address] [place] [phone] Oct, [facility] [address] [id number] [place] [id number] Sep, [facility] [address] [id number] [place] [id number] Sep, [facility] [address] [id number] [place] [id number] Sep, [facility] [address] [id number] [place] [id number] Sep, [facility] [address] [place] [id number] Sep, Generalized abdominal pain R10.84 [facility] [address] [facility] [id number] [address] [place] [phone] Sep, [facility] [address] [id number] [place] [id number] Sep, Generalized anxiety disorder F41.1 and P rimary insomnia F51.01 [facility] [address] [id number] [place] [id number] Aug, [facility] [address] [id number] [place] [id number] Aug, Generalized anxiety disorder F41.1 [facility] [address] [facility] [id number] [address] [place] [phone] Jul, [facility] [address] [place] [id number] Jul, Obsessive thinking F42.8 [facility] [address] [facility] [id number] [address] [place] [phone] Jul, Generalized anxiety disorder F41.1 and Irritable bowel syndrome with diarrhea K58.0 [facility] [address] [id number] [place] [id number] Jul, Generalized anxiety disorder F41.1 [facility] [address] [id number] [place] [id number] Jun, Generalized anxiety disorder F41.1 [facility] [address] [id number] [address] [place] [phone] May, [facility] [address] [place] [id number] May, Generalized anxiety disorder F41.1 ; Irritable bowel syndrome with diarrhea K58.0 and Coarse tremors G25.2 [facility] [address] [id number] [address] [place] [phone] April, [facility] [address] [id number] [address] [place] [phone] April, [facility] [address] [id number] [address] [place] [phone] April, [facility] [address] [facility] [id number] [address] [place] [phone] Mar, [facility] [address] [place] [id number] Mar, Severe episode of recurrent major depressive disorder, without psychotic features F33.2 and Pain in left hip M25.552 [facility] [address] [id number] [address] [place] [phone] Mar, [facility] [address] [id number] [address] [place] [phone] Mar, [facility] [address] [id number] [address] [place] [phone] Mar, [facility] [address] [facility] [id number] [address] [place] [phone] Mar, Pain in right hip M25.551 an d Self-care deficit in patient living alone R46.89 [facility] [address] [id number] Jan, Other chronic pain G89.29 ; Pain in left hip M25.552 and Slow transit constipation K59.01 [facility] [address] [id number] Jan, [facility] [address] [id number] Dec, Other depression F32.89 ; Co nstipation, unspecified constipation type K59.00 and Insomnia, unspecified type G47.00 [facility] [address] [id number] Nov, Reactive depression F32.9 ; Chronic idiopathic constipation K59.04 ; Generalized anxiety disorder F41.1 ; Coarse tremors G25.2 ; Gastroesophageal reflux disease without esophagitis K21.9 ; Dysthymic disorder F34.1 ; Vitamin deficiency, unspecified E56.9 and Primary insomnia F51.01 [facility] [address] [id number] Nov, [facility] [address] [id number] Nov, [facility] [address] [address] Nov, [place] [address] [address] Nov, Reactive depression F32.9 ; Essential hypertension [...] intake D50.8 and Vitamin deficiency, unspecified E56.9 [facility] [address] [facility] [id number] [address] [place] [address] Oct, [facility] [address] [facility] [id number] [address] [place] [address] Oct, [facility] [address] [place] [id number] [address] [place] [id number] Oct, [facility] [address] [place] [id number] [place] [address] 16 Oct, 2016 Generalized anxiety disorder F41.1 ; Poor appetite R63.0 ; Dehydration E86.0 and Failure to thrive in adult R62.7 [place] [address] [place] [id number] [place] [address] 07 Oct, 2016 Generalized anxiety disorder F41.1 and Failure to thrive in adult R62.7 [facility] [address] [place] [id number] [address] [place] [phone] Oct, [facility] [address] [place] [id number] [place] [address] Oct, [facility] [address] [place] [id number] [address] [place] [id number] Sep, Vaginal discharge N89.8 and Acute cystitis with hematuria N30.01 [facility] [id number] [place] [address] Sep, [facility] [address] [place] [id number] [address] [place] [address] Sep, [facility] [address] [place] [id number] [place] [address] Sep, Dysthymic disorder F34.1 ; A cute vaginitis N76.0 ; Dysuria R30.0 and Vaginal yeast infection B37.3 [facility] [address] [place] [id number] [address] [place] [phone] Aug, [facility] [address] [place] [id number] [address] [place] [address] Aug, [facility] [address] [id number] Aug, Foul smelling urine R82.90 ; Rapid heart rate R00.0 and Flatulence R14.3 [facility] [address] [address] Aug, [facility] [address] [id number] Jul, Constipation, unspecified co nstipation type K59.00 ; Weak R53.1 ; Poor appetite R63.0 ; Coronary artery disease involving [place] heart without angina pectoris, unspecified vessel or lesion type I25.10 ; Fatigue, unspecified type R53.83 ; Urinary incontinence, unspecified type R32 and Insomnia, unspecified type G47.00 [facility] [address] [address] Jul, [facility] [address] [address] Jun, Dysuria R30.0 [facility] [address] [address] Jun, [facility] [address] [address] Jun, Urinary tract infection, sit e not specified N39.0 ; Acute vaginitis N76.0 and Diarrhea, unspecified type R19.7 [facility] [address] [place] [id number] [address] [place] [address] May, [facility] [address] [address] April, [facility] [address] [place] [id number] [address] [place] [id number] April, Encounter for dental examina tion Z01.20 [facility] [address] [id number] [address] [place] [address] April, [facility] [address] [id number] [address] [place] [address] April, Tremor R25.1 and Episodic te nsion-type headache, not intractable G44.219 [facility] [address] [id number] [address] [place] [address] Mar, [facility] [address] [id number] [address] [place] [phone] Jan, Mood disorder F39 [facility] [address] [id number] [address] [place] [phone] Jan, [facility] [address] [facility] [id number] [address] [place] [phone] Jan, [facility] [address] [id number] [address] [place] [id number] Jan, [facility] [address] [id number] [address] [place] [phone] Jan, [facility] [address] [facility] [id number] [address] [place] [id number] Jan, [facility] [address] [facility] [id number] [address] [place] [phone] Jan, [facility] [address] [id number] [address] [place] [address] Dec, Acute diarrhea R19.7 [facility] [address] [id number] [address] [place] [phone] Dec, [facility] [address] [facility] [id number] [address] [place] [phone] Dec, [facility] [address] [facility] [id number] [address] [place] [phone] Dec, [facility] [address] [facility] [id number] [address] [place] [address] Dec, N&V (nausea and vomiting) R1 1.2 [facility] [address] [facility] [id number] [address] [place] [address] Dec, Generalized anxiety disorder F41.1 [facility] [address] [facility] [id number] [address] [place] [phone] Dec, Generalized anxiety disorder F41.1 [facility] [address] [facility] [id number] [address] [place] [address] Nov, Post concussion syndrome F07 .81 [facility] [address] [facility] [id number] [address] [place] [phone] Nov, Generalized anxiety disorder F41.1 [facility] [address] [facility] [id number] [address] [place] [phone] Nov, [facility] [address] [facility] [id number] [place] [phone] Nov, Generalized anxiety disorder F41.1 [facility] [id number] [id number] Oct, Dental caries K02.9 [facility] [address] [facility] [id number] [address] [place] [id number] Oct, [facility] [id number] [id number] Oct, Dental examination Z01.20 [facility] [address] [place] [id number] Oct, Encounter for dental examina tion Z01.20 [facility] [address] [facility] [id number] [address] [place] [phone] Oct, CAD (coronary artery disease ) I25.10 [facility] [address] [facility] [id number] [address] [place] [phone] Sep, Generalized anxiety disorder F41.1 [facility] [address] [id number] Sep, [facility] [address] [id number] Sep, Rash and other nonspecific s kin eruption R21 and Yeast vaginitis B37.3 [facility] [address] [id number] Sep, Generalized anxiety disorder F41.1 [facility] [address] [address] Aug, Insect bites 919.4 and Hemor rhoids 455.6 [facility] [address] [address] Aug, Generalized anxiety disorder 300.02 [facility] [address] [address] Aug, [facility] [address] [address] Aug, [facility] [address] [address] Aug, Generalized anxiety disorder 300.02 ; No condition on Rankin II V71.09 ; Heart problem 429.9 and Hypertension 401.9 [facility] [address] [address] Aug, [facility] [address] [address] Jul, [facility] [address] [id number] Jul, [facility] [address] [address] Jul, [facility] [address] [id number] Jul, [facility] [address] [address] Jul, Rash 782.1 [facility] [address] [id number] [address] [place] [address] Jul, UTI (urinary tract infection ) 599.0 [facility] [address] [id number] [address] [place] [phone] Jul, [facility] [address] [id number] [address] [place] [phone] Jun, Dysthymia 300.4 and Anxiety 300.00 [facility] [address] [id number] [address] [place] [address] Jun, 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 [facility] [address] [id number] [address] [place] [phone] May, [facility] [address] [id number] [address] [place] [phone] May, [facility] [address] [id number] [address] [place] [phone] May, Unspecified breast screening V76.10 [facility] [address] [id number] [address] [place] [id number] May, Dental examination V72.2 [facility] [address] [id number] [address] [place] [phone] April, [facility] [address] [id number] [address] [place] [id number] April, [facility] [address] [id number] [address] [place] [address] [id number] April, Dental examination V72.2 [facility] [address] [id number] [address] [place] [id number] April, Dental examination V72.2 [facility] [address] [id number] [address] [place] [phone] Mar, [facility] [address] [id number] [address] [place] [id number] 13 Mar, 2015 [facility] [address] [id number] [facility] [place] [address] 25 Jan, 2015 [facility] [address] [id number] [address] [place] [address], [place] [id number] 25 Jan, 2015 [facility] [address] [id number] [address] [place] [address], [place] [id number] 18 Jan, 2015 [facility] [address] [id number] [address] [place] [address], [place] [address] 18 Jan, 2015 [facility] [address] [id number] [address] [place] [address], [place] [id number] 16 Jan, 2015 [facility] [address] [id number] [address] [place] [address], [place] [id number] 16 Jan, 2015 [facility] [address] [id number] [address] [place] [address], [place] [address] Jan, [facility] [address] [id number] [address] [place] [address], [place] [id number] 13 Jan, 2015 [facility] [address] [id number] [address] [place] [address], [place] [id number] Jan, [facility] [address] [id number] [address] [place] [address], [place] [address] Jan, [facility] [address] [id number] [address] [place] [address], [place] [address] Jan, [facility] [address] [id number] [address] [place] [address], [place] [address] Jan, [facility] [address] [id number] [address] [place] [address], [place] [address] Jan, [facility] [address] [id number] [address] [place] [address], [place] [id number] Jan, [facility] [address] [id number] [address] [place] [address], [place] [address] Jan, [facility] [address] [id number] [address] [place] [address], [place] [address] Jan, 2014 [facility] [address] [id number] [address] [place] [address], [place] [id number] Jan, 2014 [facility] [address] [id number] [address] [place] [address], [place] [address] Jan, 2014 [facility] [address] [id number] [address] [place] [address], [place] [address] Jan, 2014 [facility] [address] [id number] [address] [place] [address], [place] [address] Jan, 2014 [facility] [address] [id number] [address] [place] [address], [place] [address] Jan, 2014 [facility] [address] [id number] [address] [place] [address], [place] [address] Jan, 2014 [facility] [address] [id number] [address] [place] [address], [place] [address] Dec, [facility] [address] [id number] [address] [place] [address], [place] [address] Dec, [facility] [address] [id number] [address] [place] [address], [place] [address] Dec, [facility] [address] [id number] [address] [place] [address], [place] [address] Dec, [facility] [address] [id number] [address] [place] [address], [place] [address] Nov, [facility] [address] [id number] [address] [place] [address], [place] [address] Nov, [facility] [address] [id number] [address] [place] [address], [place] [address] Nov, [facility] [address] [id number] [address] [place] [address], [place] [address] Nov, [facility] [address] [id number] [address] [place] [address], [place] [address] Nov, [facility] [address] [id number] [address] [place] [address], [place] [address] Nov, [facility] [address] [id number] [address] [place] [address], [place] [address] Nov, [facility] [address] [id number] [address] [place] [address], [place] [address] Oct, [facility] [address] [id number] [address] [place] [address], [place] [address] Oct, [facility] [address] [id number] [address] [place] [address], [place] [address] Oct, [facility] [address] [id number] [address] [place] [address], [place] [address] Oct, [facility] [address] [id number] [address] [place] [address], [place] [address] Oct, [facility] [address] [id number] [address] [place] [address], [place] [address] Oct, [facility] [address] [id number] [address] [place] [address], [place] [address] Oct, [facility] [address] [id number] [address] [place] [address], [place] [address] Oct, [facility] [address] [id number] [address] [place] [address], [place] [address] Oct, [facility] [address] [id number] [address] [place] [address], [place] [address] Oct, [facility] [address] [id number] [address] [place] [address], [place] [address] Oct, [facility] [address] [id number] [address] [place] [address], [place] [address] Oct, [facility] [address] [id number] [address] [place] [address], [place] [address] Sep, [facility] [address] [id number] [address] [place] [address], [place] [address] Sep, [facility] [address] [id number] [address] [place] [address], [place] [address] Sep, [facility] [address] [id number] [address] [place] [address], [place] [address] Sep, [facility] [address] [id number] [address] [place] [address], [place] [address] Jul, [facility] [address] [id number] [address] [place] [address], [place] [address] Jul, [facility] [address] [id number] [address] [place] [address], [place] [address] Jul, [facility] [address] [id number] [address] [place] [address], [place] [address] Jul, [facility] [address] [id number] [address] [place] [address], [place] [address] Jun, [facility] [address] [id number] [address] [place] [address], [place] [address] Jun, [facility] [address] [id number] [address] [place] [address], [place] [address] Jun, [facility] [address] [id number] [address] [place] [address], [place] [address] Jun, [facility] [address] [id number] [address] [place] [address], [place] [address] May, [facility] [address] [id number] [address] [place] [address], [place] [address] May, [facility] [address] [id number] [address] [place] [address], [place] [address] April, [facility] [address] [id number] [address] [place] [address], [place] [address] April, [facility] [address] [id number] [address] [place] [address], [place] [address] April, [facility] [address] [id number] [address] [place] [address], [place] [address] April, [facility] [address] [id number] [address] [place] [address], [place] [address] April, [facility] [address] [id number] [address] [place] [address], [place] [address] April, [facility] [address] [id number] [address] [place] [address], [place] [address] April, [facility] [address] [id number] [address] [place] [address], [place] [address] April, [facility] [address] [id number] [address] [place] [address], [place] [address] April, [facility] [address] [id number] [address] [place] [address], [place] [address] Mar, [facility] [address] [id number] [address] [place] [address], [place] [address] Mar, [facility] [address] [id number] [address] [place] [address], [place] [address] Mar, [facility] [address] [id number] [address] [place] [address], [place] [address] Mar, [facility] [address] [id number] [address] [place] [address], [place] [address] Jan, [facility] [address] [id number] [address] [place] [address], [place] [address] Jan, [facility] [address] [id number] [address] [place] [address], [place] [address] Jan, [facility] [address] [id number] [address] [place] [address], [place] [address] Jan, [facility] [address] [id number] [address] [place] [address], [place] [address] Jan, [facility] [address] [id number] [address] [place] [address], [place] [address] 10 Jan, 2014 [facility] [address] [id number] [address] [place] [address], [place] [address] Jan, [facility] [address] [id number] [address] [place] [address], [place] [address] Jan, [facility] [address] [id number] [address] [place] [address], [place] [address] Jan, [facility] [address] [id number] [address] [place] [address], [place] [address] Jan, [facility] [address] [id number] [address] [place] [address], [place] [address] Jan, [facility] [address] [id number] [address] [place] [address], [place] [address] Jan, [facility] [address] [id number] [address] [place] [address], [place] [address] Dec, [facility] [address] [id number] [address] [place] [address], [place] [address] Dec, [facility] [address] [id number] [address] [place] [address], [place] [address] Dec, [facility] [address] [id number] [address] [place] [address], [place] [address] Dec, [facility] [address] [id number] [address] [place] [address], [place] [address] Nov, [facility] [address] [id number] [address] [place] [address], [place] [address] Nov, [facility] [address] [id number] [address] [place] [address], [place] [address] Nov, [facility] [address] [id number] [address] [place] [address], [place] [address] Nov, [facility] [address] [id number] [address] [place] [address], [place] [address] Oct, [facility] [address] [id number] [address] [place] [address], [place] [address] Oct, [facility] [address] [id number] [address] [place] [address], [place] [address] Sep, [facility] [address] [id number] [address] [place] [address], [place] [address] Sep, [facility] [address] [id number] [address] [place] [address], [place] [id number] Jul, [facility] [address] [id number] [address] [place] [address], [place] [address] Jul, [facility] [address] [id number] [address] [place] [address], [place] [address] Jun, [facility] [address] [id number] [address] [place] [address], [place] [address] Jun, [facility] [address] [id number] [address] [place] [address], [place] [address] Jun, [facility] [address] [id number] [address] [place] [address], [place] [address] May, [facility] [address] [id number] [address] [place] [address], [place] [address] May, [facility] [address] [id number] [address] [place] [address], [place] [address] May, [facility] [address] [id number] [address] [place] [address], [place] [address] May, [facility] [address] [id number] [address] [place] [address], [place] [address] May, [facility] [address] [id number] [address] [place] [address], [place] [address] April, [facility] [address] [id number] [address] [place] [address], [place] [address] April, [facility] [address] [id number] [address] [place] [address], [place] [address] April, [facility] [address] [id number] [address] [place] [address], [place] [address] April, [facility] [address] [id number] [address] [place] [address], [place] [address] April, [facility] [address] [id number] [address] [place] [address], [place] [address] April, [facility] [address] [id number] [address] [place] [address], [place] [address] Mar, [facility] [address] [id number] [address] [place] [address], [place] [id number] Mar, [facility] [address] [id number] [address] [place] [address], [place] [address] Jan, [facility] [address] [id number] [address] [place] [address], [place] [address] Jan, [facility] [address] [id number] [address] [place] [address], [place] [address] Jan, [facility] [address] [id number] [address] [place] [address], [place] [address] Jan, [facility] [address] [id number] [address] [place] [address], [place] [id number] Jan, [facility] [address] [id number] [address] [place] [address], [place] [address] Jan, [facility] [address] [id number] [address] [place] [address], [place] [address] Jan, [facility] [address] [id number] [address] [place] [address], [place] [address] Jan, [facility] [address] [id number] [address] [place] [address], [place] [address] Jan, [facility] [address] [id number] [address] [place] [address], [place] [address] Jan, [facility] [address] [id number] [address] [place] [address], [place] [address] Jan, [facility] [facility] [address] [id number] [address] [place] [address], [place] [address] Dec, [facility] [address] [id number] [address] [place] [address], [place] [id number] Nov, [facility] [address] [id number] [address] [place] [address], [place] [id number] Nov, [facility] [address] [id number] [address] [place] [address], [place] [address] Nov, [facility] [address] [id number] [address] [place] [address], [place] [address] Nov, [facility] [address] [id number] [address] [place] [address], [place] [address] Nov, [facility] [address] [id number] [address] [place] [address], [place] [address] Nov, [facility] [address] [id number] [address] [place] [address], [place] [address] Nov, [facility] [address] [id number] [address] [place] [address], [place] [address] Nov, [facility] [address] [id number] [address] [place] [address], [place] [address] Nov, [facility] [address] [id number] [address] [place] [address], [place] [address] Nov, [facility] [address] [id number] [address] [place] [address], [place] [address] Nov, [facility] [address] [id number] [address] [place] [address], [place] [address] Nov, [facility] [address] [id number] [address] [place] [address], [place] [id number] Nov, [facility] [address] [id number] [address] [address] 17 Oct, 2012 [facility] [address] [id number] [address] [place] [address], [place] [address] Oct, [facility] [address] [id number] [address] [place] [address], [place] [address] Oct, [facility] [address] [id number] [address] [place] [address], [place] [address] Sep, [facility] [address] [id number] [address] [place] [id number] Sep, [facility] [address] [id number] [address] [place] [address], [place] [address] Sep, [facility] [address] [id number] [address] [place] [address], [place] [address] Sep, [facility] [address] [id number] [address] [place] [address], [place] [id number] 27 Aug, 2012 [facility] [address] [id number] [address] [place] [address], [place] [address] 20 Aug, 2012 [facility] [address] [id number] [address] [place] [address], [place] [address] 24 Jul, 2012 [facility] [address] [id number] [address] [place] [address], [place] [address] May, [facility] [address] [id number] [address] [place] [address], [place] [address] May, [facility] [address] [id number] [address] [place] [phone] May, [facility] [address] [id number] [address] [place] [address], [place] [address] April, [facility] [address] [id number] [address] [place] [address], [place] [address] Mar, [facility] [address] [id number] [address] [place] [id number] Mar, [facility] [address] [id number] [address] [place] [address], [place] [id number] 03 Mar, 2012 [facility] [address] [id number] [address] [place] [address], [place] [address] Jan, [facility] [address] [id number] [address] [place] [address], [place] [address] Jan, [facility] [address] [id number] [address] [place] [address], [place] [address] Jan, [facility] [address] [id number] [address] [place] [address], [place] [address] Dec, [facility] [address] [id number] [address] [place] [address], [place] [address] Dec, [facility] [address] [id number] [address] [place] [address], [place] [address] Dec, [facility] [address] [id number] [address] [place] [address], [place] [address] Dec, [facility] [address] [id number] [address] [place] [address], [place] [address] Nov, [facility] [address] [id number] [address] [place] [address], [place] [id number] 15 Nov, 2011 [facility] [address] [id number] [address] [place] [address], [place] [address] Nov, [facility] [address] [id number] [address] [place] [address], [place] [address] Oct, [facility] [address] [id number] [address] [place] [address], [place] [address] 31 Sep, 2011 [facility] [address] [id number] [address] [place] [address], [place] [id number] 26 Sep, 2011 [facility] [address] [id number] [address] [place] [address], [place] [id number] 13 Sep, 2011 [facility] [address] [id number] [address] [place] [address], [place] [id number] 15 Nov, 2010 [facility] [address] [id number] [address] [place] [id number] 23 Oct, 2010 [facility] [address] [id number] [address] [place] [id number] Oct, [facility] [address] [id number] [address] [place] [id number] Oct, [facility] [address] [id number] [address] [place] [id number] Oct, [facility] [address] [id number] [address] [place] [phone] Sep, [facility] [address] [id number] [address] [place] [id number] April, [facility] [address] [id number] [address] [place] [id number] Nov, [facility] [address] [id number] [address] [place] [id number] Nov, [facility] [address] [id number] [address] [place] [id number] Nov, [facility] [address] [id number] [address] [place] [phone] Nov, [facility] [address] [id number] [address] [place] [id number] Nov, [facility] [address] [id number] [address] [place] [id number] Oct, [facility] [address] [id number] [address] [place] [phone] Oct, [facility] [address] [id number] [address] [place] [id number] 13 Sep, 2009 [facility] [address] [id number] [address] [place] [id number] Jan, IMMUNIZATIONS No Known Immunizations SOCIAL HISTORY [...] History 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
--- OUTSIDE RECORDS SUMMARY | 2020-04-18 20:11 | XMS REPORT ---
Author Author Ave AGUIRRE Organization [facility] Address [address] [place] [address] Care Team Providers Care Design Teacher Name Role Phone WOLF AGUIRRE Unavailable PROBLEMS Type Condition ICD9-CM Code RUD68-NG Code Onset Dates Condition S tatus SNOMED Code Problem Dysthymic disorder F34.1 Active 7 8722313 Problem Poor appetite R63.0 Active 552906 06 Problem Failure to thrive in adult R62.7 Act mishel 267533859 Problem Coarse tremors G25.2 Active 84886 004 Problem Iron deficiency anemia secondary to inadequate d ietary iron intake D50.8 Active 142151867 Problem Atherosclerotic heart diseas e of [place] 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 Active [id number] Problem Reactive depression F32.9 Active 60761405 Problem 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 Active 0893203 04 Problem Vascular dementia with behavior disturbance F01.51 Active 099509773201171 Problem Oropharyngeal dysphagia R13.12 Active 77953734 Problem Sundowning F05 Active 314246926 Problem Generalized anxiety disorder F41.1 A ctive 12527630 Problem Constipation, unspecified constipation type K59.00 Active 90651165 Problem Insomnia, unspecified type G47.00 Act mishel 171607454 Problem Essential hypertension I10 Active 84555090 Problem Slow transit constipation K59.01 Acti ve 15722247 Problem Other chronic pain G89.29 Active 8 9526204 Problem Irritable bowel syndrome with diarrhea K58.0 Active 592230596 Problem Severe episode of recurrent major depressive disorder, without psychotic features F33.2 Active 02295423 Problem 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 Active 1819 3002 Problem Mood disorder F39 Active 128948 05 Problem Obsessive thinking F42.8 Active 6 6729250 Problem Dementia in other diseases c lassified elsewhere with behavioral disturbance F02.81 Active 614858890 Problem Alzheimer''s disease with late onset G30.1 Active 342408085 Problem Dyspepsia K30 Active 587883242 Problem Primary insomnia F51.01 Active 397 2004 Problem Falling R29.6 Active 948958686 Problem Other chronic pain G89.29 Active 8 7089290 Problem Gastroesophageal reflux disease without esophagitis K21.9 Active 922874849 Problem Acute on chronic systolic congestive heart failure I50.23 Active 263770201 Problem Coronary artery disease invo lving [place] coronary artery of [place] heart without angina pectoris I25.10 Active 1641 938703096 Problem Restless legs G25.81 Active 126306 08 Problem HTN (hypertension) I10 Active 3 6124234 ALLERGIES No Information ENCOUNTERS Encounter Location Date Diagnosis [facility] [address] [facility] [id number] [address] [place] [address] April, [facility] [address] [id number] [address] [place] [phone] April, [facility] [address] [facility] [id number] [address] [place] [address] Mar, [facility] [address] [id number] [place] [phone] 16 Mar, 2020 [facility] [address] [facility] [id number] [address] [place] [phone] 15 Mar, [address] [facility] [address] [facility] [id number] [address] [place] [phone] 10 Mar, 2020 [facility] [address] [facility] [id number] [address] [place] [phone] 09 Mar, [address] [facility] [address] [facility] [id number] [address] [place] [phone] 08 Mar, 2020 [facility] [address] [facility] [id number] [address] [place] [phone] 07 Mar, 2020 Generalized anxiety disorder F41.1 [facility] [address] [facility] [id number] [address] [place] [phone] [address], [address] [facility] [address] [id number] [address] [place] [id number] 27 Jan, 2020 [facility] [address] [place] [id number] Jan, Generalized anxiety disorder F41.1 and Pressure sore on ankle, right, unstageable L89.510 [facility] [address] [id number] [address] [place] [phone] Jan, [facility] [address] [id number] [address] [place] [phone] Jan, [facility] [address] [facility] [id number] [address] [place] [phone] Jan, Weakness R53.1 [facility] [address] [facility] [id number] [address] [place] [phone] Jan, [facility] [address] [facility] [id number] [address] [place] [phone] 10 Jan, 2020 Generalized anxiety disorder F41.1 [facility] [address] [facility] [id number] [address] [place] [phone] 08 Jan, [address] [facility] [address] [facility] [id number] [address] [place] [phone] 03 Jan, [address] [facility] [address] [facility] [id number] [address] [place] [phone] Jan, [facility] [address] [facility] [id number] [address] [place] [phone] Jan, 2019 [facility] [address] [facility] [id number] [address] [place] [phone] Jan, [facility] [address] [facility] [id number] [address] [place] [phone] Jan, [facility] [address] [facility] [id number] [address] [place] [phone] Jan, [facility] [address] [place] [id number] Jan, Generalized anxiety disorder F41.1 [place] [place] [id number] [address] [place] [phone] Jan, [facility] [id number] Jan, Coronary artery disease involving [place] coronary artery of [place] heart without angina pectoris I25.10 [place] [address] [place] [id number] [address] [place] [phone] Jan, [place] [address] [place] [id number] [address] [place] [phone] Dec, Atherosclerotic heart diseas e of [place] 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 [place] [address] [place] [id number] [address] [place] [address] Dec, [facility] [id number] Dec, Mood disorder F39 ; Acute on chronic systolic congestive heart failure I50.23 ; Obsessive thinking F42.8 and HTN (hypertension) I10 [address] [id number] Nov, Cough R05 [place] [address] [place] [id number] [address] [place] [phone] Nov, [place] [address] [place] [id number] [address] [place] [phone] Oct, [facility] [id number] Oct, Obsessive thinking F42.8 ; Generalized anxiety disorder F41.1 ; Primary insomnia F51.01 and Restless legs G25.81 [place] [address] [place] [id number] [address] [place] [phone] Sep, [facility] [id number] Aug, Coronary artery disease involving [place] coronary artery of [place] heart without angina pectoris I25.10 [place] [address] [place] [id number] [address] [place] [phone] Jul, [facility] [address] [id number] [address] [place] [phone] Jul, [facility] [address] [id number] [address] [place] [address] Jul, [facility] [address] [id number] [address] [place] [address] Jul, [facility] [address] [id number] [address] [place] [address] Jul, [facility] [address] [place] [id number] Jun, Acute on chronic systolic congestive heart failure I50.23 and Atherosclerotic heart disease of [place] 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 [facility] [address] [id number] [address] [place] [phone] Jun, [facility] [address] [id number] [address] [place] [phone] Jun, [facility] [address] [id number] [address] [place] [phone] Jun, [facility] [address] [id number] [address] [place] [phone] Jun, [facility] [address] [id number] [address] [place] [phone] Jun, [facility] [address] [id number] [address] [place] [phone] Jun, [facility] [address] [id number] [address] [place] [address] Jun, [facility] [address] [place] [id number] May, Pressure injury of right ankle, stage 2 L89.512 and Constipation, unspecified constipation type K59.00 [facility] [address] [id number] [address] [place] [address] May, [facility] [address] [place] [id number] April, Constipation, unspecified constipation type K59.00 ; Pressure injury of right ankle, stage 1 L89.511 and Vascular dementia with behavior disturbance F01.51 [facility] [address] [id number] [address] [place] [phone] Mar, [facility] [address] [id number] [address] [place] [phone] Mar, [facility] [address] [id number] [address] [place] [phone] Mar, [facility] [address] [id number] [address] [place] [phone] Mar, [facility] [address] [id number] [address] [place] [phone] Jan, [facility] [address] [id number] [address] [place] [phone] Jan, [facility] [address] [id number] [address] [place] [phone] Jan, [facility] [address] [id number] Jan, Pneumonia due to infectious organism, unspecified laterality, unspecified part of lung J18.9 ; Fall from bed, sequela W06.XXXS ; Hyponatremia E87.1 and Slow transit constipation K59.01 [facility] [address] [id number] [address] [place] [phone] Jan, [facility] [address] [id number] [address] [place] [phone] Jan, [facility] [address] [facility] [id number] [address] [place] [phone] Jan, [facility] [address] [facility] [id number] [address] [place] [address] Dec, [facility] [address] [place] [id number] Dec, Other depression F32.89 ; Alzheimer''s disease with late onset G30.1 and Dementia in other diseases classified elsewhere with behavioral disturbance F02.81 [facility] [address] [id number] [address] [place] [phone] Dec, [facility] [address] [place] [id number] Dec, [facility] [address] [place] [id number] Nov, Generalized anxiety disorder F41.1 [address] Obs[address]ive thinking F42.8 [facility] [address] [id number] [address] [place] [phone] Nov, [facility] [address] [id number] [address] [place] [phone] Oct, [facility] [address] [id number] [address] [place] [phone] Oct, [facility] [address] [id number] [address] [place] [phone] Oct, [facility] [address] [id number] [address] [place] [phone] Oct, [facility] [address] [facility] [id number] [address] [place] [id number] Oct, [facility] [address] [place] [id number] Oct, Generalized anxiety disorder F41.1 [address]ive thinking F42.8 [facility] [address] [id number] [address] [place] [phone] Sep, [facility] [address] [id number] [address] [place] [phone] Sep, [facility] [address] [id number] [address] [place] [phone] Sep, [facility] [address] [facility] [id number] [address] [place] [phone] Sep, [facility] [address] [place] [id number] Sep, Generalized anxiety disorder F41.1 ; Obsessive thinking F42.8 and Mood disorder F39 [facility] [address] [id number] [address] [place] [phone] Sep, [facility] [address] [facility] [id number] [address] [place] [phone] Sep, [facility] [address] [place] [id number] Sep, [facility] [address] [id number] [address] [place] [phone] Sep, [facility] [address] [facility] [id number] [address] [place] [phone] Sep, [facility] [address] [place] [id number] Sep, Obsessive thinking F42.8 [facility] [address] [id number] [address] [place] [phone] Sep, [facility] [address] [id number] [address] [place] [phone] Sep, [facility] [address] [facility] [id number] [address] [place] [phone] Aug, [facility] [address] [facility] [id number] [address] [place] [phone] Aug, [facility] [address] [facility] [id number] [address] [place] [phone] Aug, Positive urine drug screen R 82.5 [facility] [address] [place] [id number] Aug, [facility] [address] [facility] [id number] [address] [place] [address] Aug, [facility] [address] [facility] [id number] [address] [place] [phone] Aug, [place] [address] [facility] [id number] [address] [place] [phone] 17 Aug, 2018 Irritable bowel syndrome wit h diarrhea K58.0 [place] [address] [facility] [id number] [address] [place] [phone] 13 Aug, 2018 [place] [address] [facility] [id number] [address] [place] [phone] Aug, Obsessive thinking F42.8 ; I nsomnia, unspecified type G47.00 and Other chronic pain G89.29 [facility] [address] [place] [id number] Aug, Obsessive thinking F42.8 ; Irritable bowel syndrome with diarrhea K58.0 ; Pain in right foot M79.671 ; Pain of left foot M79.672 and Gastroesophageal reflux disease without esophagitis K21.9 [place] [address] [facility] [id number] [address] [place] [address] Aug, [place] [address] [facility] [id number] [address] [place] [phone] Jul, [place] [address] [facility] [id number] [address] [place] [phone] Jun, [place] [address] [facility] [id number] [address] [place] [address] Jun, [facility] [address] [place] [id number] Jun, Left lower quadrant pain R10.32 and Left leg pain M79.605 [place] [address] [facility] [id number] [address] [place] [address] Jun, [facility] [address] [place] [id number] Jun, Pain in left hip M25.552 ; Pain in right hip M25.551 and Primary insomnia F51.01 [place] [address] [facility] [id number] [address] [place] [phone] Jun, [facility] [address] [place] [id number] May, [facility] [address] [facility] [id number] [address] [place] [phone] May, [facility] [address] [facility] [id number] [address] [place] [address] May, [facility] [address] [place] [id number] May, Mood disorder F39 [facility] [address] [facility] [id number] [address] [place] [phone] May, [facility] [address] [facility] [id number] [address] [place] [address] April, [facility] [address] [place] [id number] April, Generalized anxiety disorder F41.1 ; Obsessive thinking F42.8 and Insomnia, unspecified type G47.00 [facility] [address] [facility] [id number] [address] [place] [address] April, [facility] [address] [facility] [id number] [address] [place] [phone] April, Rash of face R21 [facility] [address] [facility] [id number] [address] [place] [address] Mar, [facility] [address] [facility] [id number] [address] [place] [address] Mar, [facility] [address] [facility] [id number] [address] [place] [phone] Mar, [facility] [address] [facility] [id number] [address] [place] [phone] Jan, [facility] [address] [facility] [id number] [address] [place] [phone] Jan, [facility] [address] [place] [id number] Jan, Constipation, unspecified constipation type K59.00 and Other chronic pain G89.29 [facility] [address] [facility] [id number] [address] [place] [phone] Jan, [facility] [address] [place] [id number] Jan, Obsessive thinking F42.8 and Coarse tremors G25.2 [facility] [address] [id number] [place] [facility] [place] [id number] Jan, [facility] [address] [id number] [place] [facility] [place] [id number] Jan, [facility] [address] [place] [id number] Jan, Generalized anxiety disorder F41.1 ; Obsessive thinking F42.8 ; Callus of foot L84 and 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 [place] [address] [facility] [id number] [address] [place] [phone] Dec, Generalized anxiety disorder F41.1 and Severe episode of recurrent major depressive disorder, without psychotic features F33.2 [place] [address] [facility] [id number] [address] [place] [phone] Nov, [facility] [address] [facility] [id number] [address] [place] [address] Nov, [facility] [address] [place] [id number] Nov, Oropharyngeal dysphagia R13.12 ; Generalized anxiety disorder F41.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 [facility] [address] [facility] [id number] [address] [place] [address] Nov, [facility] [id number] [place] [address], [place] [id number] Nov, [facility] [address] [facility] [id number] [address] [place] [address] Nov, [facility] [address] [facility] [id number] [address] [place] [address] Nov, [facility] [address] [facility] [id number] [address] [place] [address] Oct, Constipation, unspecified co nstipation type K59.[address] [facility] [address] [facility] [id number] [address] [place] [address] Oct, [facility] [address] [id number] [place] [id number] Sep, [facility] [address] [id number] [place] [id number] Sep, [facility] [address] [id number] [place] [id number] Sep, [facility] [address] [id number] [place] [id number] Sep, [facility] [address] [place] [id number] Sep, Generalized abdominal pain R10.84 [facility] [address] [facility] [id number] [address] [place] [phone] Sep, [facility] [address] [id number] [place] [id number] Sep, Generalized anxiety disorder F41.1 and P rimary insomnia F51.01 [facility] [address] [id number] [place] [id number] Aug, [facility] [address] [id number] [place] [id number] Aug, Generalized anxiety disorder F41.1 [facility] [address] [facility] [id number] [address] [place] [phone] Jul, [facility] [address] [place] [id number] Jul, Obsessive thinking F42.8 [facility] [address] [facility] [id number] [address] [place] [phone] Jul, Generalized anxiety disorder F41.1 and Irritable bowel syndrome with diarrhea K58.0 [place] [address] [id number] [place] [id number] Jul, Generalized anxiety disorder F41.1 [facility] [address] [id number] [place] [id number] Jun, Generalized anxiety disorder F41.1 [facility] [address] [facility] [id number] [address] [place] [address] May, [facility] [address] [place] [id number] May, Generalized anxiety disorder F41.1 ; Irritable bowel syndrome with diarrhea K58.0 [address] Coarse tremors G25.2 [facility] [address] [facility] [id number] [address] [place] [phone] April, [facility] [address] [facility] [id number] [address] [place] [id number] April, [facility] [address] [facility] [id number] [address] [place] [phone] April, [facility] [address] [facility] [id number] [address] [place] [id number] Mar, [facility] [address] [place] [id number] Mar, Severe episode of recurrent major depressive disorder, without psychotic features F33.2 and Pain in left hip M25.552 [facility] [address] [facility] [id number] [address] [place] [id number] Mar, [facility] [address] [facility] [id number] [address] [place] [phone] Mar, [facility] [address] [facility] [id number] [address] [place] [phone] Mar, [facility] [address] [facility] [id number] [address] [place] [id number] Mar, Pain in right hip M25.551 an d Self-care deficit in patient living alone R46.89 [facility] [address] [id number] Jan, Other chronic pain G89.29 ; Pain in left hip M25.552 and Slow transit constipation K59.01 [place] [address] [id number] Jan, [place] [address] [id number] Dec, Other depression F32.89 ; Co nstipation, unspecified constipation type K59.00 and Insomnia, unspecified type G47.00 [place] [address] [id number] Nov, Reactive depression F32.9 ; Chronic idiopathic constipation K59.04 ; Generalized anxiety disorder F41.1 ; Coarse tremors G25.2 ; Gastroesophageal reflux disease without esophagitis K21.9 ; Dysthymic disorder F34.1 ; Vitamin deficiency, unspecified E56.9 and Primary insomnia F51.01 [place] [address] [id number] Nov, [place] [address] [id number] Nov, [place] [address] [id number] Nov, [place] [address] [id number] Nov, Reactive depression F32.9 ; Essential hypertension I10 ; Generalized anxiety disorder F41.1 ; Atherosclerotic heart disease of [place] 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 ; Pain in right hip M25.551 ; Other chronic pain G89.29 ; Chronic idiopathic constipation K59.04 ; Primary insomnia F51.01 ; Coarse tremors G25.2 ; Gastroesophageal reflux disease without esophagitis K21.9 ; Iron deficiency anemia secondary to inadequate dietary iron intake D50.8 and Vitamin deficiency, unspecified E56.9 [place] [address] [id number] Oct, [facility] [address] [id number] [address] [place] [id number] Oct, [facility] [address] [id number] [address] [place] [address] Oct, [facility] [address] [id number] [address] [place] [id number] 16 Oct, 2016 Generalized anxiety disorder F41.1 ; Poor appetite R63.0 ; Dehydration E86.0 and Failure to thrive in adult R62.7 [facility] [address] [id number] [address] [place] [id number] 07 Oct, 2016 Generalized anxiety disorder F41.1 and Failure to thrive in adult R62.7 [facility] [address] [id number] [address] [place] [id number] [address], [address] [facility] [address] [id number] [address] [place] [phone] Oct, [facility] [address] [id number] [address] [place] [address] Sep, Vaginal discharge N89.8 and Acute cystitis with hematuria N30.01 [facility] [address] [id number] [address] [place] [id number] Sep, [facility] [address] [id number] [address] [place] [id number] Sep, [facility] [address] [id number] [address] [place] [address] Sep, Dysthymic disorder F34.1 ; A cute vaginitis N76.0 ; Dysuria R30.0 and Vaginal yeast infection B37.3 [facility] [address] [id number] [address] [place] [address] Aug, [facility] [address] [id number] [address] [place] [id number] 13 Aug, 2016 [facility] [address] [facility] [id number] [address] [place] [address] Aug, Foul smelling urine R82.90 ; Rapid heart rate R00.[address] [facility] [address] [facility] [id number] [address] [place] [phone] Aug, [facility] [address] [facility] [id number] [address] [place] [address] Jul, Constipation, unspecified co nstipation type K59.00 ; Weak R53.1 ; Poor appetite R63.0 ; Coronary artery disease involving [place] heart without angina pectoris, unspecified vessel or lesion type I25.10 ; Fatigue, unspecified type R53.83 ; Urinary incontinence, unspecified type R32 and Insomnia, unspecified type G47.00 [facility] [address] [place] [id number] [address] [place] [address] Jul, [facility] [address] [facility] [id number] [address] [place] [address] Jun, Dysuria R30.0 [facility] [address] [place] [id number] [address] [place] [phone] Jun, [facility] [address] [place] [id number] [place] [address] Jun, Urinary tract infection, sit e not specified N39.0 ; Acute vaginitis N76.0 and Diarrhea, unspecified type R19.7 [facility] [id number] [place] [address] May, [facility] [address] [place] [id number] [address] [place] [id number] April, [facility] [address] [place] [id number] [place] [id number] April, Encounter for dental examina tion Z01.20 [facility] [address] [place] [id number] [address] [place] [address] April, [place] [address] [facility] [id number] [address] [place] [address] April, Tremor R25.1 and Episodic te nsion-type headache, not intractable G44.219 [facility] [address] [facility] [id number] [address] [place] [id number] 08 Mar, 2016 [facility] [address] [facility] [id number] [address] [place] [phone] Jan, Mood disorder F39 [facility] [address] [facility] [id number] [address] [place] [address] Jan, [facility] [address] [facility] [id number] [place] [phone] Jan, [facility] [address] [facility] [id number] [address] [place] [phone] Jan, [facility] [address] [id number] Jan, [facility] [address] [facility] [id number] [address] [place] [phone] Jan, [facility] [address] [place] [id number] [place] [phone] Jan, [facility] [address] [place] [id number] [address] [place] [phone] Dec, Acute diarrhea R19.7 [facility] [address] [facility] [id number] [address] [place] [address] Dec, [facility] [address] [facility] [id number] [address] [place] [id number] Dec, [facility] [address] [facility] [id number] [place] [phone] Dec, [facility] [address] [facility] [id number] [address] [place] [id number] 14 Dec, 2015 N&V (nausea and vomiting) R1 1.2 [facility] [address] [place] [id number] [address] [place] [phone] Dec, Generalized anxiety disorder F41.1 [facility] [address] [id number] [address] [place] [phone] Dec, Generalized anxiety disorder F41.1 [facility] [address] [id number] [address] [place] [phone] Nov, Post concussion syndrome F07 .81 [facility] [address] [id number] [address] [place] [address] Nov, Generalized anxiety disorder F41.1 [facility] [address] [id number] [address] [place] [phone] Nov, [facility] [address] [id number] [address] [place] [address] Nov, Generalized anxiety disorder F41.1 [facility] [address] [id number] [address] [place] [id number] Oct, Dental caries K02.9 [facility] [address] [id number] [address] [place] [phone] Oct, [facility] [address] [id number] [place] [address] [id number] Oct, Dental examination Z01.20 [facility] [address] [id number] [address] [place] [address] [id number] Oct, Encounter for dental examina tion Z01.20 [facility] [address] [id number] [address] [place] [phone] Oct, CAD (coronary artery disease ) I25.10 [facility] [address] [id number] [address] [place] [address] Sep, Generalized anxiety disorder F41.1 [facility] [address] [id number] [address] [place] [address] Sep, [facility] [address] [id number] [address] [place] [id number] Sep, Rash and other nonspecific s kin eruption R21 and Yeast vaginitis B37.3 [facility] [address] [id number] Sep, Generalized anxiety disorder F41.1 [facility] [address] [id number] Aug, Insect bites 919.[address] [facility] [address] [id number] Aug, Generalized anxiety disorder 300.02 [facility] [address] [id number] Aug, [facility] [address] [id number] Aug, [facility] [address] [address] Aug, Generalized anxiety disorder 300.02 ; No condition on [place] V71.09 ; Heart problem 429.[address] [facility] [address] [id number] Aug, [facility] [address] [id number] Jul, [facility] [address] [place] [id number] [address] [place] [address] Jul, [facility] [address] [place] [id number] [address] [place] [phone] Jul, [facility] [address] [address] Jul, [facility] [address] [place] [id number] [address] [place] [address] Jul, Rash 782.1 [facility] [address] [id number] Jul, UTI (urinary tract infection ) 599.0 [facility] [address] [id number] [address] [place] [phone] Jul, [facility] [address] [id number] [address] [place] [phone] Jun, Dysthymia 300.[address] [facility] [address] [id number] [address] [place] [id number] Jun, 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 [facility] [address] [id number] [address] [place] [id number] May, [facility] [address] [id number] [address] [place] [phone] May, [facility] [address] [id number] [address] [place] [id number] May, Unspecified breast screening V76.10 [facility] [address] [id number] [address] [place] [address] [id number] May, Dental examination V72.2 [facility] [address] [id number] [address] [place] [phone] April, [facility] [address] [id number] [address] [place] [phone] April, [facility] [address] [id number] [address] [place] [address] [id number] April, Dental examination V72.2 [facility] [address] [id number] [address] [place] [address] [id number] April, Dental examination V72.2 [facility] [address] [id number] [address] [place] [phone] Mar, [facility] [address] [id number] [address] [place] [phone] Mar, [facility] [address] [id number] [address] [place] [phone] Jan, [facility] [address] [id number] [facility] [place] [id number] 25 Jan, 2015 [facility] [address] [id number] [address] [place] [address], [place] [id number] 18 Jan, 2015 [facility] [address] [id number] [address] [place] [address], [place] [id number] 18 Jan, 2015 [facility] [address] [id number] [address] [place] [address], [place] [id number] 16 Jan, 2015 [facility] [address] [id number] [address] [place] [address], [place] [id number] 16 Jan, 2015 [facility] [address] [id number] [address] [place] [address], [place] [id number] Jan, [facility] [address] [id number] [address] [place] [address], [place] [id number] Jan, [facility] [address] [id number] [address] [place] [address], [place] [id number] 11 Jan, 2015 [facility] [address] [id number] [address] [place] [address], [place] [address] Jan, [facility] [address] [id number] [address] [place] [address], [place] [address] Jan, [facility] [address] [id number] [address] [place] [address], [place] [address] Jan, [facility] [address] [id number] [address] [place] [address], [place] [address] Jan, [facility] [address] [id number] [address] [place] [address], [place] [address] Jan, [facility] [address] [id number] [address] [place] [address], [place] [address] Jan, [facility] [address] [id number] [address] [place] [address], [place] [address] Jan, [facility] [address] [id number] [address] [place] [address], [place] [id number] 10 Jan, 2014 [facility] [address] [id number] [address] [place] [address], [place] [address] Jan, 2014 [facility] [address] [id number] [address] [place] [address], [place] [id number] 03 Jan, 2014 [facility] [address] [id number] [address] [place] [address], [place] [address] Jan, 2014 [facility] [address] [id number] [address] [place] [address], [place] [address] Jan, 2014 [facility] [address] [id number] [address] [place] [address], [place] [address] Jan, 2014 [facility] [address] [id number] [address] [place] [address], [place] [address] Dec, [facility] [address] [id number] [address] [place] [address], [place] [address] Dec, [facility] [address] [id number] [address] [place] [address], [place] [address] Dec, [facility] [address] [id number] [address] [place] [address], [place] [address] Dec, [facility] [address] [id number] [address] [place] [address], [place] [address] Nov, [facility] [address] [id number] [address] [place] [address], [place] [address] Nov, [facility] [address] [id number] [address] [place] [address], [place] [address] Nov, [facility] [address] [id number] [address] [place] [address], [place] [address] Nov, [facility] [address] [id number] [address] [place] [address], [place] [address] Nov, [facility] [address] [id number] [address] [place] [address], [place] [address] Nov, [facility] [address] [id number] [address] [place] [address], [place] [address] Nov, [facility] [address] [id number] [address] [place] [address], [place] [address] Oct, [facility] [address] [id number] [address] [place] [address], [place] [address] Oct, [facility] [address] [id number] [address] [place] [address], [place] [address] Oct, [facility] [address] [id number] [address] [place] [address], [place] [address] Oct, [facility] [address] [id number] [address] [place] [address], [place] [id number] Oct, [facility] [address] [id number] [address] [place] [address], [place] [id number] Oct, [facility] [address] [id number] [address] [place] [address], [place] [address] Oct, [facility] [address] [id number] [address] [place] [address], [place] [id number] Oct, [facility] [address] [id number] [address] [place] [address], [place] [address] Oct, [facility] [address] [id number] [address] [place] [address], [place] [address] Oct, [facility] [address] [id number] [address] [place] [address], [place] [address] Oct, [facility] [address] [id number] [address] [place] [address], [place] [address] Oct, [facility] [address] [id number] [address] [place] [address], [place] [address] Sep, [facility] [address] [id number] [address] [place] [address], [place] [address] Sep, [facility] [address] [id number] [address] [place] [address] [place] [address] Sep, [facility] [address] [id number] [address] [place] [address], [place] [address] Sep, [facility] [address] [id number] [address] [place] [address], [place] [address] Jul, [facility] [address] [id number] [address] [place] [address], [place] [address] Jul, [facility] [address] [id number] [address] [place] [address], [place] [address] Jul, [facility] [address] [id number] [address] [place] [address], [place] [address] Jul, [facility] [address] [id number] [address] [place] [address], [place] [id number] Jun, [facility] [address] [id number] [address] [place] [address], [place] [address] Jun, [facility] [address] [id number] [address] [place] [address], [place] [address] Jun, [facility] [address] [id number] [address] [place] [address], [place] [address] Jun, [facility] [address] [id number] [address] [place] [address], [place] [address] May, [facility] [address] [id number] [address] [place] [address], [place] [address] May, [facility] [address] [id number] [address] [place] [address], [place] [id number] April, [facility] [address] [id number] [address] [place] [address], [place] [address] April, [facility] [address] [id number] [address] [place] [address], [place] [address] April, [facility] [address] [id number] [address] [place] [address], [place] [address] April, [facility] [address] [id number] [facility] [place] [address] April, [facility] [address] [id number] [address] [place] [address], [place] [address] April, [facility] [address] [id number] [address] [place] [address], [place] [address] April, [facility] [address] [id number] [address] [place] [address], [place] [address] April, [facility] [address] [id number] [address] [place] [address], [place] [address] April, [facility] [address] [id number] [address] [place] [address], [place] [address] Mar, [facility] [address] [id number] [address] [place] [address], [place] [address] Mar, [facility] [address] [id number] [address] [place] [address], [place] [address] Mar, [facility] [address] [id number] [address] [place] [address], [place] [id number] Mar, [facility] [address] [id number] [address] [place] [address], [place] [address] Jan, [facility] [address] [id number] [address] [place] [address], [place] [address] Jan, [facility] [address] [id number] [address] [place] [address], [place] [address] Jan, [facility] [address] [id number] [address] [place] [address], [place] [address] Jan, [facility] [address] [id number] [address] [place] [address], [place] [id number] Jan, [facility] [address] [id number] [address] [place] [address], [place] [id number] Jan, [facility] [address] [id number] [address] [place] [address], [place] [id number] Jan, [facility] [address] [id number] [address] [place] [address], [place] [id number] Jan, [facility] [address] [id number] [address] [place] [address], [place] [id number] Jan, [facility] [address] [id number] [address] [place] [address], [place] [id number] Jan, [facility] [address] [id number] [address] [place] [address], [place] [id number] Jan, [facility] [address] [id number] [address] [place] [address], [place] [id number] Jan, [facility] [address] [id number] [address] [place] [address], [place] [id number] Dec, [facility] [address] [id number] [address] [place] [address], [place] [id number] Dec, [facility] [address] [id number] [address] [place] [address], [place] [id number] Dec, [facility] [address] [id number] [address] [place] [address], [place] [id number] Dec, [facility] [address] [id number] [address] [place] [address], [place] [id number] Nov, [facility] [address] [id number] [address] [place] [address], [place] [id number] Nov, [facility] [address] [id number] [address] [place] [address], [place] [id number] Nov, [facility] [address] [id number] [address] [place] [address], [place] [id number] Nov, [facility] [address] [id number] [address] [place] [address], [place] [id number] Oct, [facility] [address] [id number] [address] [place] [address], [place] [id number] Oct, [facility] [address] [id number] [address] [place] [address], [place] [id number] Sep, [facility] [address] [id number] [address] [place] [address], [place] [id number] Sep, [facility] [address] [id number] [address] [place] [address], [place] [id number] Jul, [facility] [address] [id number] [address] [place] [address], [place] [id number] Jul, [facility] [address] [id number] [address] [place] [address], [place] [id number] Jun, [facility] [address] [id number] [address] [place] [address], [place] [id number] Jun, [facility] [address] [id number] [address] [place] [address], [place] [id number] Jun, [facility] [address] [id number] [address] [place] [address], [place] [id number] May, [facility] [address] [id number] [address] [place] [address], [place] [id number] May, [facility] [address] [id number] [address] [place] [address], [place] [id number] May, [facility] [address] [id number] [address] [place] [address], [place] [id number] May, [facility] [address] [id number] [address] [place] [address], [place] [id number] May, [facility] [address] [id number] [address] [place] [address], [place] [id number] April, [facility] [address] [id number] [address] [place] [address], [place] [id number] April, [facility] [address] [id number] [address] [place] [address], [place] [id number] April, [facility] [address] [id number] [address] [place] [address], [place] [address] April, [facility] [address] [id number] [address] [place] [address], [place] [id number] April, [facility] [address] [id number] [address] [place] [address], [place] [id number] April, [facility] [address] [id number] [address] [place] [address], [place] [id number] Mar, [facility] [address] [id number] [address] [place] [address], [place] [id number] Mar, [facility] [address] [id number] [address] [place] [address], [place] [id number] Jan, [facility] [address] [id number] [address] [place] [address], [place] [id number] Jan, [facility] [facility] [address] [id number] [address] [place] [address], [place] [id number] Jan, [facility] [address] [id number] [address] [place] [address], [place] [id number] Jan, [facility] [address] [id number] [address] [place] [address], [place] [id number] Jan, [facility] [address] [id number] [address] [place] [address], [place] [id number] Jan, [facility] [address] [id number] [address] [place] [address], [place] [id number] Jan, [facility] [address] [id number] [address] [place] [address], [place] [id number] Jan, [facility] [address] [id number] [address] [place] [address], [place] [id number] Jan, [facility] [address] [id number] [address] [place] [address], [place] [id number] Jan, [facility] [address] [id number] [address] [place] [address], [place] [id number] Jan, [facility] [address] [id number] [address] [place] [address], [place] [id number] Dec, [facility] [address] [id number] [address] [place] [address], [place] [address] Nov, [facility] [address] [id number] [address] [place] [address], [place] [id number] Nov, [facility] [address] [id number] [address] [place] [address], [place] [id number] Nov, [facility] [address] [id number] [address] [place] [address], [place] [id number] Nov, [facility] [address] [id number] [address] [place] [address], [place] [id number] Nov, [facility] [address] [id number] [address] [place] [address], [place] [address] Nov, [facility] [address] [id number] [address] [place] [address], [place] [id number] Nov, [facility] [address] [id number] [address] [place] [address], [place] [address] Nov, [facility] [address] [id number] [address] [place] [address], [place] [id number] Nov, [facility] [address] [id number] [address] [place] [address], [place] [address] Nov, [facility] [address] [id number] [address] [place] [address], [place] [id number] Nov, [facility] [address] [id number] [address] [place] [address], [place] [address] Nov, [facility] [address] [id number] [address] [place] [address], [place] [id number] Nov, [facility] [address] [id number] [address] [place] [address], [place] [id number] 17 Oct, 2012 [facility] [address] [id number] [address] [place] [address], [place] [id number] Oct, [facility] [address] [id number] [address] [place] [address], [place] [address] Oct, [facility] [address] [id number] [address] [place] [address], [place] [address] Sep, [facility] [address] [id number] [address] [place] [address], [place] [address] Sep, [facility] [address] [id number] [address] [place] [address], [place] [id number] Sep, [facility] [address] [id number] [address] [place] [address], [place] [address] Sep, [facility] [address] [id number] [address] [place] [address], [place] [address] Aug, [facility] [address] [id number] [address] [place] [address], [place] [address] Aug, [facility] [address] [id number] [address] [place] [address], [place] [id number] Jul, [facility] [address] [id number] [address] [place] [address], [place] [address] May, [facility] [address] [id number] [address] [place] [id number] May, [facility] [address] [id number] [address] [place] [address], [place] [address] May, [facility] [address] [id number] [address] [place] [id number] April, [facility] [address] [id number] [address] [place] [address], [place] [address] Mar, [facility] [address] [id number] [address] [place] [address], [place] [address] Mar, [facility] [address] [id number] [address] [place] [address], [place] [id number] Mar, [facility] [address] [id number] [address] [place] [id number] Jan, [facility] [address] [id number] [address] [place] [address], [place] [address] Jan, [facility] [address] [id number] [address] [place] [address], [place] [address] Jan, [facility] [address] [id number] [address] [place] [address], [place] [address] Dec, [facility] [address] [id number] [address] [place] [address], [place] [address] Dec, [facility] [address] [id number] [address] [place] [address], [place] [address] Dec, [facility] [address] [id number] [address] [place] [address], [place] [address] Dec, [facility] [address] [id number] [address] [place] [address], [place] [address] Nov, [facility] [address] [id number] [address] [place] [address], [place] [address] Nov, [facility] [address] [id number] [address] [place] [address], [place] [address] Nov, [facility] [address] [id number] [address] [place] [address], [place] [address] Oct, [facility] [address] [id number] [address] [place] [address], [place] [address] 31 Sep, 2011 [facility] [address] [id number] [address] [place] [address], [place] [address] Sep, [facility] [address] [id number] [address] [place] [address], [place] [id number] 13 Sep, 2011 [facility] [address] [id number] [address] [place] [address], [place] [id number] 15 Nov, 2010 [facility] [address] [id number] [address] [place] [address], [place] [address] Oct, [facility] [address] [id number] [address] [place] [id number] [address], [address] [facility] [address] [id number] [address] [place] [id number] Oct, [facility] [address] [id number] [address] [place] [id number] [address], [address] [facility] [address] [id number] [address] [place] [id number] Sep, [facility] [address] [id number] [address] [place] [id number] April, [facility] [address] [id number] [address] [place] [id number] Nov, [facility] [address] [id number] [address] [place] [id number] Nov, [facility] [address] [id number] [address] [place] [id number] Nov, [facility] [address] [id number] [address] [place] [id number] Nov, [facility] [address] [id number] [address] [place] [id number] Nov, [facility] [address] [id number] [address] [place] [phone] Oct, [facility] [address] [id number] [address] [place] [phone] Oct, [facility] [address] [id number] [address] [place] [phone] Sep, 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
--- OUTSIDE RECORDS SUMMARY | 2020-04-18 20:11 | XMS REPORT ---
Author Author Ave AGUIRRE Organization [facility] Address [address] [place] [address] Care Team Providers Care Commercial Lending Relationship Manager Name Role Phone WOLF AGUIRRE Unavailable PROBLEMS Type Condition ICD9-CM Code [id number] Code Onset Dates Condition S tatus SNOMED Code Problem Dysthymic disorder F34.1 Active 7 9759236 Problem Poor appetite R63.0 Active 806630 06 Problem Failure to thrive in adult R62.7 Act mishel [id number] Problem Coarse tremors G25.2 Active 06281 004 Problem Iron deficiency anemia secondary to inadequate d ietary iron intake D50.8 Active 633760227 Problem Atherosclerotic heart diseas e of [place] 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 Active [id number] Problem Reactive depression F32.9 Active 09452399 Problem 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 Active 3690927 04 Problem Vascular dementia with behavior disturbance F01.51 Active [id number] Problem Oropharyngeal dysphagia R13.12 Active 29790817 Problem Sundowning F05 Active 633825724 Problem Generalized anxiety disorder F41.1 A ctive 08857356 Problem Constipation, unspecified constipation type K59.00 Active 56556869 Problem Insomnia, unspecified type G47.00 Act mishel 795508938 Problem Essential hypertension I10 Active 51823599 Problem Slow transit constipation K59.01 Acti ve 01635297 Problem Other chronic pain G89.29 Active 8 2563914 Problem Irritable bowel syndrome with diarrhea K58.0 Active 143647476 Problem Severe episode of recurrent major depressive disorder, without psychotic features F33.2 Active 28795394 Problem 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 Active 1819 3002 Problem Mood disorder F39 Active 951993 05 Problem Obsessive thinking F42.8 Active 6 2652253 Problem Dementia in other diseases c lassified elsewhere with behavioral disturbance F02.81 Active 343751861 Problem Alzheimer''s disease with late onset G30.1 Active 591009493 Problem Dyspepsia K30 Active 109276667 Problem Primary insomnia F51.01 Active 397 2004 Problem Falling R29.6 Active 382327732 Problem Other chronic pain G89.29 Active 8 9739357 Problem Gastroesophageal reflux disease without esophagitis K21.9 Active 765958236 Problem Acute on chronic systolic congestive heart failure I50.23 Active 791922503 Problem Coronary artery disease invo lving [place] coronary artery of [place] heart without angina pectoris I25.10 Active 1641 107402136 Problem Restless legs G25.81 Active 542933 08 Problem HTN (hypertension) I10 Active 3 8048415 ALLERGIES No Information ENCOUNTERS Encounter Location Date Diagnosis [facility] [place] [address] [facility] [id number] [address] [place] [id number] 08 Apr, 2020 Generalized anxiety disorder F41.1 [facility] [place] [address] [facility] [id number] [address] [place] [id number] 04 Apr, 2020 [facility] [place] [address] [facility] [id number] [address] [place] [id number] April, [facility] [place] [address] [facility] [id number] [address] [place] [id number] 28 Mar, 2020 [facility] [place] [address] [facility] [id number] [address] [place] [id number] 16 Mar, 2020 [facility] [place] [address] [facility] [id number] [address] [place] [id number] 15 Mar, 2020 Nausea R11.0 [facility] [place] [address] [facility] [id number] [address] [place] [id number] 10 Mar, 2020 [facility] [place] [address] [facility] [id number] [address] [place] [id number] 09 Mar, 2020 Falling R29.6 [facility] [place] [address] [facility] [id number] [address] [place] [id number] 08 Mar, 2020 [facility] [place] [address] [facility] [id number] [address] [place] [id number] 07 Mar, 2020 Generalized anxiety disorder F41.1 [facility] [place] [address] [id number] [address] [place] [id number] 02 Mar, 2020 [facility] [place] [address] [id number] [address] [place] [id number] 27 Jan, 2020 [facility] [address] [place] [id number] Jan, Generalized anxiety disorder F41.1 and Pressure sore on ankle, right, unstageable L89.510 [facility] [place] [address] [id number] [address] [place] [id number] Jan, [facility] [place] [address] [id number] [address] [place] [id number] Jan, [facility] [place] [address] [facility] [id number] [address] [place] [id number] Jan, Weakness R53.1 [facility] [place] [address] [id number] [address] [place] [id number] 20 Jan, 2020 [facility] [place] [address] [facility] [id number] [address] [place] [id number] 10 Jan, 2020 Generalized anxiety disorder F41.1 [facility] [place] [address] [id number] [address] [place] [id number] 08 Jan, 2020 Nausea R11.0 [facility] [place] [address] [facility] [id number] [address] [place] [id number] 03 Jan, 2020 Dyspepsia K30 [facility] [place] [address] [id number] [address] [place] [id number] Jan, [facility] [place] [address] [facility] [id number] [address] [place] [id number] Jan, [facility] [place] [address] [facility] [id number] [address] [place] [id number] Jan, [facility] [place] [address] [facility] [id number] [address] [place] [id number] Jan, [facility] [place] [address] [facility] [id number] [address] [place] [id number] Jan, [facility] [address] [place] [id number] Jan, Generalized anxiety disorder F41.1 [facility] [place] [address] [facility] [id number] [address] [place] [id number] 18 Jan, [address] [facility] [address] [id number] Jan, Coronary artery disease involving [place] coronary artery of [place] heart without angina pectoris I25.10 [facility] [place] [address] [facility] [id number] [address] [place] [id number] Jan, [facility] [place] [address] [place] [id number] [address] [place] [id number] Dec, Atherosclerotic heart diseas e of [place] 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 [place] [address] [place] [id number] [address] [place] [id number] Dec, [facility] [address] [place] [id number] Dec, Mood disorder F39 ; Acute on chronic systolic congestive heart failure I50.23 ; Obsessive thinking F42.8 and HTN (hypertension) I[address] [id number] Nov, Cough R05 [place] [id number] [place] [id number] Nov, [facility] [place] [address] [place] [id number] [address] [place] [id number] Oct, [facility] [address] [id number] Oct, Obsessive thinking F42.8 ; Generalized anxiety disorder F41.1 ; Primary insomnia F51.01 and Restless legs G25.81 [facility] [place] [address] [place] [id number] [address] [place] [id number] Sep, [facility] [address] [id number] Aug, Coronary artery disease involving [place] coronary artery of [place] heart without angina pectoris I25.10 [facility] [place] [address] [id number] [address] [place] [id number] Jul, [facility] [place] [address] [id number] [address] [place] [id number] Jul, [facility] [place] [address] [id number] [address] [place] [id number] Jul, [facility] [place] [address] [id number] [address] [place] [id number] Jul, [facility] [place] [address] [id number] [address] [place] [id number] Jul, [facility] [address] [place] [id number] Jun, Acute on chronic systolic congestive heart failure I50.23 and Atherosclerotic heart disease of [place] 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 [facility] [place] [address] [id number] [address] [place] [id number] Jun, [facility] [place] [address] [id number] [address] [place] [id number] Jun, [facility] [place] [address] [id number] [address] [place] [id number] Jun, [facility] [place] [address] [id number] [address] [place] [id number] Jun, [facility] [place] [address] [id number] [address] [place] [id number] Jun, [facility] [place] [address] [id number] [address] [place] [id number] Jun, [facility] [place] [address] [id number] [address] [place] [id number] Jun, [facility] [address] [place] [id number] May, Pressure injury of right ankle, stage 2 L89.512 and Constipation, unspecified constipation type K59.00 [facility] [place] [address] [id number] [address] [place] [id number] May, [facility] [address] [place] [id number] April, Constipation, unspecified constipation type K59.00 ; Pressure injury of right ankle, stage 1 L89.511 and Vascular dementia with behavior disturbance F01.51 [facility] [place] [address] [id number] [address] [place] [id number] Mar, [facility] [place] [address] [id number] [address] [place] [id number] Mar, [facility] [place] [address] [id number] [address] [place] [id number] Mar, [facility] [place] [address] [id number] [address] [place] [id number] Mar, [facility] [place] [address] [id number] [address] [place] [id number] Jan, [facility] [place] [address] [id number] [address] [place] [id number] Jan, [facility] [place] [address] [id number] [address] [place] [id number] [facility], [facility] [address] [place] [id number] Jan, Pneumonia due to infectious organism, unspecified laterality, unspecified part of lung J18.9 ; Fall from bed, sequela W06.XXXS ; Hyponatremia E87.1 and Slow transit constipation K59.01 [facility] [place] [address] [id number] [address] [place] [id number] Jan, [facility] [place] [address] [id number] [address] [place] [id number] Jan, [facility] [place] [address] [id number] [address] [place] [id number] Jan, [facility] [place] [address] [facility] [id number] [address] [place] [id number] Dec, [facility] [address] [place] [id number] Dec, Other depression F32.89 ; Alzheimer''s disease with late onset G30.1 and Dementia in other diseases classified elsewhere with behavioral disturbance F02.81 [facility] [place] [address] [facility] [id number] [address] [place] [id number] Dec, [facility] [address] [place] [id number] Dec, [facility] [address] [place] [id number] Nov, Generalized anxiety disorder F41.1 and Obsessive thinking F42.8 [facility] [place] [address] [facility] [id number] [address] [place] [id number] Nov, [facility] [place] [address] [facility] [id number] [address] [place] [id number] Oct, [facility] [place] [address] [facility] [id number] [address] [place] [id number] Oct, [facility] [place] [address] [facility] [id number] [address] [place] [id number] Oct, [facility] [place] [address] [facility] [id number] [address] [place] [id number] Oct, [facility] [place] [address] [facility] [id number] [address] [place] [id number] Oct, [facility] [address] [place] [id number] Oct, Generalized anxiety disorder F41.1 and Obsessive thinking F42.8 [facility] [place] [address] [facility] [id number] [address] [place] [id number] Sep, [facility] [place] [address] [facility] [id number] [address] [place] [id number] Sep, [facility] [place] [address] [facility] [id number] [address] [place] [id number] Sep, [facility] [place] [address] [id number] [address] [place] [phone] Sep, [facility] [address] [place] [id number] Sep, Generalized anxiety disorder F41.1 ; Obsessive thinking F42.8 and Mood disorder F39 [facility] [place] [address] [id number] [address] [place] [id number] Sep, [facility] [place] [address] [id number] [address] [place] [id number] Sep, [facility] [address] [place] [id number] Sep, [facility] [place] [address] [id number] [address] [place] [id number] Sep, [facility] [place] [address] [id number] [address] [place] [id number] Sep, [facility] [address] [place] [id number] Sep, Obsessive thinking F42.8 [facility] [place] [address] [id number] [address] [place] [id number] Sep, [facility] [place] [address] [id number] [address] [place] [id number] Sep, [facility] [place] [address] [id number] [address] [place] [id number] Aug, [facility] [place] [address] [id number] [address] [place] [id number] Aug, [facility] [place] [address] [id number] [address] [place] [id number] Aug, Positive urine drug screen R 82.5 [facility] [id number] Aug, [facility] [place] [address] [id number] [address] [place] [id number] Aug, [facility] [place] [address] [facility] [id number] [address] [place] [id number] Aug, [facility] [place] [address] [facility] [id number] [address] [place] [id number] 17 Aug, 2018 Irritable bowel syndrome wit h diarrhea K58.0 [facility] [place] [address] [facility] [id number] [address] [place] [id number] Aug, [facility] [place] [address] [facility] [id number] [address] [place] [id number] Aug, Obsessive thinking F42.8 ; I nsomnia, unspecified type G47.00 and Other chronic pain G89.[address] [facility] [address] [id number] Aug, Obsessive thinking F42.8 ; Irritable bowel syndrome with diarrhea K58.0 ; Pain in right foot M79.671 ; Pain of left foot M79.672 and Gastroesophageal reflux disease without esophagitis K21.9 [facility] [place] [address] [facility] [id number] [address] [place] [id number] Aug, [facility] [place] [address] [facility] [id number] [address] [place] [id number] Jul, [facility] [place] [address] [facility] [id number] [address] [place] [id number] Jun, [place] [address] [place] [id number] [address] [place] [id number] Jun, [facility] [address] [id number] Jun, Left lower quadrant pain R10.32 and Left leg pain M79.605 [place] [address] [address] [facility] [id number] [address] [place] [id number] Jun, [facility] [address] [place] [id number] Jun, Pain in left hip M25.552 ; Pain in right hip M25.551 and Primary insomnia F51.01 [place] [address] [id number] [address] [place] [id number] Jun, [facility] [address] [place] [id number] May, [facility] [place] [address] [id number] [address] [place] [id number] May, [facility] [place] [address] [facility] [id number] [address] [place] [id number] May, [facility] [address] [place] [id number] May, Mood disorder F39 [facility] [place] [address] [id number] [address] [place] [id number] May, [facility] [place] [address] [facility] [id number] [address] [place] [id number] April, [facility] [id number] April, Generalized anxiety disorder F41.1 ; Obsessive thinking F42.8 and Insomnia, unspecified type G47.00 [facility] [place] [address] [id number] [address] [place] [id number] April, [facility] [place] [address] [facility] [id number] [address] [place] [id number] April, Rash of face R21 [facility] [place] [address] [facility] [id number] [address] [place] [id number] Mar, [facility] [place] [address] [facility] [id number] [address] [place] [id number] Mar, [facility] [place] [address] [facility] [id number] [address] [place] [id number] Mar, [facility] [place] [address] [facility] [id number] [address] [place] [id number] Jan, [facility] [place] [address] [facility] [id number] [address] [place] [id number] Jan, [facility] [address] [place] [id number] Jan, Constipation, unspecified constipation type K59.00 and Other chronic pain G89.29 [place] [address] [address] Jan, [facility] [id number] Jan, Obsessive thinking F42.8 and Coarse tremors G25.2 [place] [address] [address] [place] [id number] [facility] [place] [place] [id number] Jan, [place] [address] [address] [place] [id number] [facility] [place] [place] [id number] Jan, [facility] [address] [id number] Jan, Generalized anxiety disorder F41.1 ; Obsessive thinking F42.8 ; Callus of foot L84 and 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 [place] [address] [address] Dec, Generalized anxiety disorder F41.1 and Severe episode of recurrent major depressive disorder, without psychotic features F33.2 [place] [address] [address] [place] [id number] [address] [place] [id number] Nov, [place] [address] [address] Nov, [facility] [id number] Nov, Oropharyngeal dysphagia R13.12 ; Generalized anxiety disorder F41.1 and 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 [place] [address] [address] [place] [id number] [address] [place] [id number] Nov, [place] [address] [address] [place] [id number] [place] [address], [place] [id number] Nov, [place] [address] [address] [place] [id number] [address] [place] [id number] Nov, [place] [address] [address] [facility] [id number] [address] [place] [id number] Nov, [facility] [place] [address] [facility] [id number] [address] [place] [id number] Oct, Constipation, unspecified co nstipation type K59.00 and Mood disorder F39 [facility] [place] [address] [facility] [id number] [address] [place] [id number] Oct, [facility] [address] [id number] [place] [id number] Sep, [facility] [address] [id number] [place] [id number] Sep, [facility] [address] [id number] [place] [id number] Sep, [facility] [address] [id number] [place] [id number] Sep, [facility] [address] [place] [id number] Sep, Generalized abdominal pain R10.84 [facility] [place] [address] [facility] [id number] [address] [place] [id number] Sep, [facility] [address] [id number] [place] [id number] Sep, Generalized anxiety disorder F41.1 and P rimary insomnia F51.01 [facility] [address] [id number] [place] [id number] Aug, [facility] [address] [id number] [place] [id number] Aug, Generalized anxiety disorder F41.1 [facility] [place] [address] [facility] [id number] [address] [place] [address] [id number] Jul, [facility] [address] [id number] Jul, Obsessive thinking F42.8 [facility] [address] [facility] [id number] [address] [place] [address] Jul, Generalized anxiety disorder F41.1 and Irritable bowel syndrome with diarrhea K58.0 [facility] [address] [id number] [place] [id number] Jul, Generalized anxiety disorder F41.1 [facility] [address] [id number] [place] [id number] Jun, Generalized anxiety disorder F41.1 [facility] [place] [address] [id number] [address] [place] [id number] May, [facility] [address], [place] [id number] May, Generalized anxiety disorder F41.1 ; Irritable bowel syndrome with diarrhea K58.0 and Coarse tremors G25.2 [facility] [place] [address] [id number] [address] [place] [id number] April, [facility] [place] [address] [id number] [address] [place] [address] April, [facility] [place] [address] [id number] [address] [place] [id number] April, [facility] [place] [address] [facility] [id number] [address] [place] [address] Mar, [facility] [address] [id number] Mar, Severe episode of recurrent major depressive disorder, without psychotic features F33.2 and Pain in left hip M25.552 [facility] [place] [address] [id number] [address] [place] [address] Mar, [facility] [place] [address] [id number] [address] [place] [address] Mar, [facility] [place] [address] [id number] [address] [place] [address] Mar, [facility] [place] [address] [facility] [id number] [address] [place] [address] Mar, Pain in right hip M25.551 an d Self-care deficit in patient living alone R46.89 [facility] [address] [address] Jan, Other chronic pain G89.29 ; Pain in left hip M25.552 and Slow transit constipation K59.01 [facility] [place] [address] [address] Jan, [facility] [place] [address] [address] Dec, Other depression F32.89 ; Co nstipation, unspecified constipation type K59.00 and Insomnia, unspecified type G47.00 [facility] [place] [address] [address] Nov, Reactive depression F32.9 ; Chronic idiopathic constipation K59.04 ; Generalized anxiety disorder F41.1 ; Coarse tremors G25.2 ; Gastroesophageal reflux disease without esophagitis K21.9 ; Dysthymic disorder F34.1 ; Vitamin deficiency, unspecified E56.9 and Primary insomnia F51.01 [facility] [place] [address] [address] Nov, [facility] [place] [address] [id number] Nov, [facility] [place] [address] [address] Nov, [place] [address] [address] Nov, Reactive depression F32.9 ; Essential hypertension I10 ; Generalized anxiety disorder F41.1 ; Atherosclerotic heart disease of [place] 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 ; Pain in right hip M25.551 ; Other chronic pain G89.29 ; Chronic idiopathic constipation K59.04 ; Primary insomnia F51.01 ; Coarse tremors G25.2 ; Gastroesophageal reflux disease without esophagitis K21.9 ; Iron deficiency anemia secondary to inadequate dietary iron intake D50.8 and Vitamin deficiency, unspecified E56.9 [facility] [place] [address] [facility] [id number] [address] [place] [id number] Oct, [facility] [place] [address] [facility] [id number] [address] [place] [address] Oct, [facility] [place] [address] [place] [id number] [address] [place] [id number] Oct, [facility] [place] [address] [place] [id number] [place] [address] 16 Oct, 2016 Generalized anxiety disorder F41.1 ; Poor appetite R63.0 ; Dehydration E86.0 and Failure to thrive in adult R62.7 [place] [address] [place] [id number] [place] [id number] 07 Oct, 2016 Generalized anxiety disorder F41.1 and Failure to thrive in adult R62.7 [facility] [place] [address] [place] [id number] [address] [place] [id number] Oct, [facility] [place] [address] [place] [id number] [place] [address] Oct, [facility] [address] [place] [id number] [address] [place] [address] Sep, Vaginal discharge N89.8 and Acute cystitis with hematuria N30.01 [facility] [place] [id number] [place] [address] Sep, [facility] [place] [address] [place] [id number] [address] [place] [address] Sep, [facility] [place] [address] [place] [id number] [place] [address] Sep, Dysthymic disorder F34.1 ; A cute vaginitis N76.0 ; Dysuria R30.0 and Vaginal yeast infection B37.3 [facility] [place] [address] [place] [id number] [address] [place] [phone] Aug, [facility] [place] [address] [place] [id number] [address] [place] [address] Aug, [facility] [address] [address] Aug, Foul smelling urine R82.90 ; Rapid heart rate R00.0 and Flatulence R14.3 [facility] [place] [address] [address] Aug, [facility] [place] [address] [address] Jul, Constipation, unspecified co nstipation type K59.00 ; Weak R53.1 ; Poor appetite R63.0 ; Coronary artery disease involving [place] heart without angina pectoris, unspecified vessel or lesion type I25.10 ; Fatigue, unspecified type R53.83 ; Urinary incontinence, unspecified type R32 and Insomnia, unspecified type G47.00 [facility] [place] [address] [address] Jul, [facility] [place] [address] [address] Jun, Dysuria R30.0 [facility] [place] [address] [address] Jun, [facility] [place] [address] [address] Jun, Urinary tract infection, sit e not specified N39.0 ; Acute vaginitis N76.0 and Diarrhea, unspecified type R19.7 [facility] [place] [address] [place] [id number] [address] [place] [id number] May, [facility] [place] [address] [address] April, [facility] [address] [place] [id number] [address] [place] [id number] April, Encounter for dental examina tion Z01.20 [facility] [place] [address] [id number] [address] [place] [id number] April, [facility] [place] [address] [id number] [address] [place] [id number] April, Tremor R25.1 and Episodic te nsion-type headache, not intractable G44.219 [facility] [place] [address] [id number] [address] [place] [id number] Mar, [facility] [place] [address] [id number] [address] [place] [address] Jan, Mood disorder F39 [facility] [address] [id number] [address] [place] [id number] Jan, [facility] [place] [address] [facility] [id number] [address] [place] [id number] Jan, [facility] [place] [address] [id number] [address] [place] [id number] Jan, [facility] [place] [address] [id number] [address] [place] [id number] Jan, [facility] [place] [address] [facility] [id number] [address] [place] [phone] Jan, [facility] [place] [address] [facility] [id number] [address] [place] [id number] Jan, [facility] [address] [id number] [address] [place] [id number] Dec, Acute diarrhea R19.7 [facility] [place] [address] [id number] [address] [place] [id number] Dec, [facility] [place] [address] [facility] [id number] [address] [place] [id number] Dec, [facility] [place] [address] [facility] [id number] [address] [place] [id number] Dec, [facility] [address] [facility] [id number] [address] [place] [address] Dec, N&V (nausea and vomiting) R1 1.2 [facility] [place] [address] [facility] [id number] [address] [place] [id number] Dec, Generalized anxiety disorder F41.1 [facility] [place] [address] [facility] [id number] [address] [place] [id number] Dec, Generalized anxiety disorder F41.1 [facility] [place] [address] [facility] [id number] [address] [place] [id number] Nov, Post concussion syndrome F07 .81 [facility] [place] [address] [facility] [id number] [address] [place] [phone] Nov, Generalized anxiety disorder F41.1 [facility] [place] [address] [facility] [id number] [address] [place] [phone] Nov, [facility] [place] [address] [facility] [id number] [place] [phone] Nov, Generalized anxiety disorder F41.1 [facility] [id number] [id number] Oct, Dental caries K02.9 [facility] [place] [address] [facility] [id number] [address] [place] [id number] Oct, [facility] [id number] [id number] Oct, Dental examination Z01.20 [facility] [address] [place] [id number] Oct, Encounter for dental examina tion Z01.20 [facility] [place] [address] [facility] [id number] [address] [place] [id number] Oct, CAD (coronary artery disease ) I25.10 [facility] [place] [address] [facility] [id number] [address] [place] [phone] Sep, Generalized anxiety disorder F41.1 [facility] [place] [address] [address] Sep, [facility] [place] [address] [id number] Sep, Rash and other nonspecific s kin eruption R21 and Yeast vaginitis B37.3 [facility] [place] [address] [address] Sep, Generalized anxiety disorder F41.1 [facility] [place] [address] [id number] Aug, Insect bites 919.4 and Hemor rhoids 455.6 [facility] [place] [address] [address] Aug, Generalized anxiety disorder 300.02 [facility] [place] [address] [address] Aug, [facility] [place] [address] [address] Aug, [facility] [place] [address] [address] Aug, Generalized anxiety disorder 300.02 ; No condition on [place] II V71.09 ; Heart problem 429.9 and Hypertension 401.9 [facility] [place] [address] [id number] Aug, [facility] [place] [address] [address] Jul, [facility] [place] [address] [address] Jul, [facility] [place] [address] [id number] Jul, [facility] [place] [address] [address] Jul, [facility] [place] [address] [address] Jul, Rash 782.1 [facility] [place] [address] [id number] [address] [place] [id number] Jul, UTI (urinary tract infection ) 599.0 [facility] [place] [address] [id number] [address] [place] [id number] Jul, [facility] [place] [address] [id number] [address] [place] [id number] Jun, Dysthymia 300.4 and Anxiety 300.00 [facility] [place] [address] [id number] [address] [place] [id number] Jun, 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 [facility] [place] [address] [id number] [address] [place] [phone] May, [facility] [place] [address] [id number] [address] [place] [id number] May, [facility] [place] [address] [id number] [address] [place] [id number] May, Unspecified breast screening V76.10 [facility] [address] [id number] [address] [place] [id number] May, Dental examination V72.2 [facility] [place] [address] [id number] [address] [place] [id number] April, [facility] [place] [address] [id number] [address] [place] [id number] April, [facility] [address] [id number] [address] [place] [id number] April, Dental examination V72.2 [facility] [address] [id number] [address] [place] [id number] April, Dental examination V72.2 [facility] [place] [address] [id number] [address] [place] [id number] Mar, [facility] [place] [address] [id number] [address] [place] [id number] 13 Mar, 2015 [facility] [address] [id number] [facility] [place] [address] 25 Jan, 2015 [facility] [address] [id number] [address] [place] [address], [place] [address] 25 Jan, 2015 [facility] [address] [id number] [address] [place] [address], [place] [address] 18 Jan, 2015 [facility] [address] [id number] [address] [place] [address], [place] [address] 18 Jan, 2015 [facility] [address] [id number] [address] [place] [address], [place] [address] 16 Jan, 2015 [facility] [address] [id number] [address] [place] [address], [place] [address] 16 Jan, 2015 [facility] [address] [id number] [address] [place] [address], [place] [address] Jan, [facility] [address] [id number] [address] [place] [address], [place] [address] 13 Jan, 2015 [facility] [address] [id number] [address] [place] [address], [place] [address] Jan, [facility] [address] [id number] [address] [place] [address], [place] [address] Jan, [facility] [address] [id number] [address] [place] [address], [place] [address] Jan, [facility] [address] [id number] [address] [place] [address], [place] [address] Jan, [facility] [address] [id number] [address] [place] [address], [place] [address] Jan, [facility] [address] [id number] [address] [place] [address], [place] [address] Jan, [facility] [address] [id number] [address] [place] [address], [place] [address] Jan, [facility] [address] [id number] [address] [place] [address], [place] [address] Jan, 2014 [facility] [address] [id number] [address] [place] [address], [place] [address] Jan, 2014 [facility] [address] [id number] [address] [place] [address], [place] [address] Jan, 2014 [facility] [address] [id number] [address] [place] [address], [place] [address] Jan, 2014 [facility] [address] [id number] [address] [place] [address], [place] [address] Jan, 2014 [facility] [address] [id number] [address] [place] [address], [place] [address] Jan, 2014 [facility] [address] [id number] [address] [place] [address], [place] [address] Jan, 2014 [facility] [address] [id number] [address] [place] [address], [place] [address] Dec, [facility] [address] [id number] [address] [place] [address], [place] [address] Dec, [facility] [address] [id number] [address] [place] [address], [place] [address] Dec, [facility] [address] [id number] [address] [place] [address], [place] [address] Dec, [facility] [address] [id number] [address] [place] [address], [place] [address] Nov, [facility] [address] [id number] [address] [place] [address], [place] [address] Nov, [facility] [address] [id number] [address] [place] [address], [place] [address] Nov, [facility] [address] [id number] [address] [place] [address], [place] [address] Nov, [facility] [address] [id number] [address] [place] [address], [place] [address] Nov, [facility] [address] [id number] [address] [place] [address], [place] [address] Nov, [facility] [address] [id number] [address] [place] [address], [place] [address] Nov, [facility] [address] [id number] [address] [place] [address], [place] [address] Oct, [facility] [address] [id number] [address] [place] [address], [place] [address] Oct, [facility] [address] [id number] [address] [place] [address], [place] [address] Oct, [facility] [address] [id number] [address] [place] [address], [place] [address] Oct, [facility] [address] [id number] [address] [place] [address], [place] [address] Oct, [facility] [address] [id number] [address] [place] [address], [place] [address] Oct, [facility] [address] [id number] [address] [place] [address], [place] [address] Oct, [facility] [address] [id number] [address] [place] [address], [place] [address] Oct, [facility] [address] [id number] [address] [place] [address], [place] [address] Oct, [facility] [address] [id number] [address] [place] [address], [place] [address] Oct, [facility] [address] [id number] [address] [place] [address], [place] [address] Oct, [facility] [address] [id number] [address] [place] [address], [place] [address] Oct, [facility] [address] [id number] [address] [place] [address], [place] [address] Sep, [facility] [address] [id number] [address] [place] [address], [place] [address] Sep, [facility] [address] [id number] [address] [place] [address], [place] [address] Sep, [facility] [address] [id number] [address] [place] [address], [place] [address] Sep, [facility] [address] [id number] [address] [place] [address], [place] [address] Jul, [facility] [address] [id number] [address] [place] [address], [place] [address] Jul, [facility] [address] [id number] [address] [place] [address], [place] [address] Jul, [facility] [address] [id number] [address] [place] [address], [place] [address] Jul, [facility] [address] [id number] [address] [place] [address], [place] [address] Jun, [facility] [address] [id number] [address] [place] [address], [place] [address] Jun, [facility] [address] [id number] [address] [place] [address], [place] [address] Jun, [facility] [address] [id number] [address] [place] [address], [place] [address] Jun, [facility] [address] [id number] [address] [place] [address], [place] [address] May, [facility] [address] [id number] [address] [place] [address], [place] [address] May, [facility] [address] [id number] [address] [place] [address], [place] [address] April, [facility] [address] [id number] [address] [place] [address], [place] [address] April, [facility] [address] [id number] [address] [place] [address], [place] [address] April, [facility] [address] [id number] [address] [place] [address], [place] [address] April, [facility] [address] [id number] [address] [place] [address], [place] [address] April, [facility] [address] [id number] [address] [place] [address], [place] [address] April, [facility] [address] [id number] [address] [place] [address], [place] [address] April, [facility] [address] [id number] [address] [place] [address], [place] [address] April, [facility] [address] [id number] [address] [place] [address], [place] [address] April, [facility] [address] [id number] [address] [place] [address], [place] [address] Mar, [facility] [address] [id number] [address] [place] [address], [place] [address] Mar, [facility] [address] [id number] [address] [place] [address], [place] [address] Mar, [facility] [address] [id number] [address] [place] [address], [place] [address] Mar, [facility] [address] [id number] [address] [place] [address], [place] [address] Jan, [facility] [address] [id number] [address] [place] [address], [place] [address] Jan, [facility] [address] [id number] [address] [place] [address], [place] [address] Jan, [facility] [address] [id number] [address] [place] [address], [place] [address] Jan, [facility] [address] [id number] [address] [place] [address], [place] [address] Jan, [facility] [address] [id number] [address] [place] [address], [place] [address] 10 Jan, 2014 [facility] [address] [id number] [address] [place] [address], [place] [address] Jan, [facility] [address] [id number] [address] [place] [address], [place] [address] Jan, [facility] [address] [id number] [address] [place] [address], [place] [address] Jan, [facility] [address] [id number] [address] [place] [address], [place] [address] Jan, [facility] [address] [id number] [address] [place] [address], [place] [address] Jan, [facility] [address] [id number] [address] [place] [address], [place] [address] Jan, [facility] [address] [id number] [address] [place] [address], [place] [address] Dec, [facility] [address] [id number] [address] [place] [address], [place] [address] Dec, [facility] [address] [id number] [address] [place] [address], [place] [address] Dec, [facility] [address] [id number] [address] [place] [address], [place] [address] Dec, [facility] [address] [id number] [address] [place] [address], [place] [address] Nov, [facility] [address] [id number] [address] [place] [address], [place] [address] Nov, [facility] [address] [id number] [address] [place] [address], [place] [address] Nov, [facility] [address] [id number] [address] [place] [address], [place] [address] Nov, [facility] [address] [id number] [address] [place] [address], [place] [address] Oct, [facility] [address] [id number] [address] [place] [address], [place] [address] Oct, [facility] [address] [id number] [address] [place] [address], [place] [address] Sep, [facility] [address] [id number] [address] [place] [address], [place] [address] Sep, [facility] [address] [id number] [address] [place] [address], [place] [address] Jul, [facility] [address] [id number] [address] [place] [address], [place] [address] Jul, [facility] [address] [id number] [address] [place] [address], [place] [address] Jun, [facility] [address] [id number] [address] [place] [address], [place] [address] Jun, [facility] [address] [id number] [address] [place] [address], [place] [address] Jun, [facility] [address] [id number] [address] [place] [address], [place] [address] May, [facility] [address] [id number] [address] [place] [address], [place] [address] May, [facility] [address] [id number] [address] [place] [address], [place] [address] May, [facility] [address] [id number] [address] [place] [address], [place] [address] May, [facility] [address] [id number] [address] [place] [address], [place] [address] May, [facility] [address] [id number] [address] [place] [address], [place] [address] April, [facility] [address] [id number] [address] [place] [address], [place] [address] April, [facility] [address] [id number] [address] [place] [address], [place] [address] April, [facility] [address] [id number] [address] [place] [address], [place] [address] April, [facility] [address] [id number] [address] [place] [address], [place] [address] April, [facility] [address] [id number] [address] [place] [address], [place] [address] April, [facility] [address] [id number] [address] [place] [address], [place] [address] Mar, [facility] [address] [id number] [address] [place] [address], [place] [address] Mar, [facility] [address] [id number] [address] [place] [address], [place] [address] Jan, [facility] [address] [id number] [address] [place] [address], [place] [address] Jan, [facility] [address] [id number] [address] [place] [address], [place] [address] Jan, [facility] [address] [id number] [address] [place] [address], [place] [address] Jan, [facility] [address] [id number] [address] [place] [address], [place] [address] Jan, [facility] [address] [id number] [address] [place] [address], [place] [address] Jan, [facility] [address] [id number] [address] [place] [address], [place] [address] Jan, [facility] [address] [id number] [address] [place] [address], [place] [address] Jan, [facility] [address] [id number] [address] [place] [address], [place] [address] Jan, [facility] [address] [id number] [address] [place] [address], [place] [address] Jan, [facility] [address] [id number] [address] [place] [address], [place] [address] Jan, [facility] [address] [id number] [address] [place] [address], [place] [address] Dec, [facility] [address] [id number] [address] [place] [address], [place] [address] Nov, [facility] [address] [id number] [address] [place] [address], [place] [address] Nov, [facility] [address] [id number] [address] [place] [address], [place] [address] Nov, [facility] [address] [id number] [address] [place] [address], [place] [address] Nov, [facility] [address] [id number] [address] [place] [address], [place] [address] Nov, [facility] [address] [id number] [address] [place] [address], [place] [address] Nov, [facility] [address] [id number] [address] [place] [address], [place] [address] Nov, [facility] [address] [id number] [address] [place] [address], [place] [address] Nov, [facility] [address] [id number] [address] [place] [address], [place] [address] Nov, [facility] [address] [id number] [address] [place] [address], [place] [address] Nov, [facility] [address] [id number] [address] [place] [address], [place] [address] Nov, [facility] [address] [id number] [address] [place] [address], [place] [address] Nov, [facility] [address] [id number] [address] [place] [address], [place] [address] Nov, [facility] [address] [id number] [address] [address] 17 Oct, 2012 [facility] [address] [id number] [address] [place] [address], [place] [address] Oct, [facility] [address] [id number] [address] [place] [address], [place] [address] Oct, [facility] [address] [id number] [address] [place] [address], [place] [address] Sep, [facility] [address] [id number] [address] [place] [address] Sep, [facility] [address] [id number] [address] [place] [address], [place] [address] Sep, [facility] [address] [id number] [address] [place] [address], [place] [address] Sep, [facility] [address] [id number] [address] [place] [address], [place] [address] 27 Aug, 2012 [facility] [address] [id number] [address] [place] [address], [place] [address] 20 Aug, 2012 [facility] [address] [id number] [address] [place] [address], [place] [address] 24 Jul, 2012 [facility] [address] [id number] [address] [place] [address], [place] [address] May, [facility] [address] [id number] [address] [place] [address], [place] [address] May, [facility] [address] [id number] [address] [place] [address] May, [facility] [address] [id number] [address] [place] [address], [place] [address] April, [facility] [address] [id number] [address] [place] [address], [place] [address] Mar, [facility] [address] [id number] [address] [place] [address] Mar, [facility] [address] [id number] [address] [place] [address], [place] [address] 03 Mar, 2012 [facility] [address] [id number] [address] [place] [address], [place] [address] Jan, [facility] [address] [id number] [address] [place] [address], [place] [address] Jan, [facility] [address] [id number] [address] [place] [address], [place] [address] Jan, [facility] [address] [id number] [address] [place] [address], [place] [address] Dec, [facility] [address] [id number] [address] [place] [address], [place] [address] Dec, [facility] [address] [id number] [address] [place] [address], [place] [address] Dec, [facility] [address] [id number] [address] [place] [address], [place] [address] Dec, [facility] [address] [id number] [address] [place] [address], [place] [address] Nov, [facility] [address] [id number] [address] [place] [address], [place] [address] 15 Nov, 2011 [facility] [address] [id number] [address] [place] [address], [place] [address] Nov, [facility] [address] [id number] [address] [place] [address], [place] [address] Oct, [facility] [address] [id number] [address] [place] [address], [place] [address] 31 Sep, 2011 [facility] [address] [id number] [address] [place] [address], [place] [address] 26 Sep, 2011 [facility] [address] [id number] [address] [place] [address], [place] [address] 13 Sep, 2011 [facility] [address] [id number] [address] [place] [address], [place] [address] 15 Nov, 2010 [facility] [address] [id number] [address] [place] [address] 23 Oct, 2010 [facility] [address] [id number] [address] [place] [address] Oct, [facility] [address] [id number] [address] [place] [address] Oct, [facility] [address] [id number] [address] [place] [address] Oct, [facility] [address] [id number] [address] [place] [address] Sep, [facility] [address] [id number] [address] [place] [address] April, [facility] [address] [id number] [address] [place] [address] Nov, [facility] [address] [id number] [address] [place] [address] Nov, [facility] [address] [id number] [address] [place] [address] Nov, [facility] [address] [id number] [address] [place] [address] Nov, [facility] [address] [id number] [address] [place] [address] Nov, [facility] [address] [id number] [address] [place] [address] Oct, [facility] [address] [id number] [address] [place] [address] Oct, [facility] [address] [id number] [address] [place] [id number] 13 Sep, 2009 [facility] [place] [address] [id number] [address] [place] [address] Jan, IMMUNIZATIONS No Known Immunizations SOCIAL HISTORY [...] 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
--- OUTSIDE RECORDS SUMMARY | 2020-04-18 20:12 | XMS REPORT ---
Author Author Ave AGUIRRE Organization [facility] Address [address] [place] [address] Care Team Providers Care Excellence Manager Name Role Phone WOLF AGUIRRE Unavailable PROBLEMS Type Condition ICD9-CM Code YDH91-CM Code Onset Dates Condition S tatus SNOMED Code Problem Dysthymic disorder F34.1 Active 7 6434986 Problem Poor appetite R63.0 Active 296813 06 Problem Failure to thrive in adult R62.7 Act mishel [id number] Problem Coarse tremors G25.2 Active 74157 004 Problem Iron deficiency anemia secondary to inadequate d ietary iron intake D50.8 Active 666533819 Problem Atherosclerotic heart diseas e of [place] 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 Active [id number] Problem Reactive depression F32.9 Active 83065553 Problem 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 Active 2846547 04 Problem Vascular dementia with behavior disturbance F01.51 Active 522762223051108 Problem Oropharyngeal dysphagia R13.12 Active 29648484 Problem Sundowning F05 Active 339932910 Problem Generalized anxiety disorder F41.1 A ctive 51110037 Problem Constipation, unspecified constipation type K59.00 Active 26053400 Problem Insomnia, unspecified type G47.00 Act mishel [id number] Problem Essential hypertension I10 Active 17000804 Problem Slow transit constipation K59.01 Acti ve 99050175 Problem Other chronic pain G89.29 Active 8 9664823 Problem Irritable bowel syndrome with diarrhea K58.0 Active 271317659 Problem Severe episode of recurrent major depressive disorder, without psychotic features F33.2 Active 98288391 Problem 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 Active 1819 3002 Problem Mood disorder F39 Active 458362 05 Problem Obsessive thinking F42.8 Active 6 4074047 Problem Dementia in other diseases c lassified elsewhere with behavioral disturbance F02.81 Active 686044991 Problem Alzheimer''s disease with late onset G30.1 Active 455009360 Problem Dyspepsia K30 Active 632207304 Problem Primary insomnia F51.01 Active 397 2004 Problem Falling R29.6 Active 800326358 Problem Other chronic pain G89.29 Active 8 3412702 Problem Gastroesophageal reflux disease without esophagitis K21.9 Active 080381960 Problem Acute on chronic systolic congestive heart failure I50.23 Active 673758727 Problem Coronary artery disease invo lving [place] coronary artery of [place] heart without angina pectoris I25.10 Active 1641 818580299 Problem Restless legs G25.81 Active 902592 08 Problem HTN (hypertension) I10 Active 3 0198287 ALLERGIES No Information ENCOUNTERS Encounter Location Date Diagnosis [facility] [id number] [place] [id number] 16 Mar, 2020 [facility] [address] [place] [phone] 15 Mar, 2020 Nausea R11.0 [facility] [address] [phone] 10 Mar, 2020 [facility] [id number] [place] [address] 09 Mar, 2020 Falling R29.6 [facility] [address] [facility] [id number] [address] [place] [phone] 08 Mar, 2020 [facility] [id number] [place] [phone] 07 Mar, 2020 Generalized anxiety disorder F41.1 [facility] [id number] [place] [phone] 02 Mar, 2020 [facility] [id number] [place] [phone] Jan, [facility] [address] [place] [id number] Jan, Generalized anxiety disorder F41.1 and Pressure sore on ankle, right, unstageable L89.510 [facility] [id number] [place] [address] Jan, [facility] [address] [id number] [address] [place] [address] Jan, [facility] [address] [id number] [address] [place] [phone] Jan, Weakness R53.1 [facility] [address] [facility] [id number] [address] [place] [phone] Jan, [facility] [address] [facility] [id number] [address] [place] [phone] Jan, Generalized anxiety disorder F41.1 [facility] [address] [id number] [address] [place] [id number] 08 Jan, 2020 Nausea R11.0 [facility] [address] [facility] [id number] [address] [place] [id number] 03 Jan, 2020 Dyspepsia K30 [facility] [address] [facility] [id number] [address] [place] [phone] Jan, [facility] [address] [facility] [id number] [address] [place] [phone] Jan, [facility] [address] [facility] [id number] [address] [place] [address] Jan, [facility] [address] [facility] [id number] [address] [place] [phone] Jan, [facility] [address] [facility] [id number] [address] [place] [phone] Jan, [facility] [address] [place] [id number] Jan, Generalized anxiety disorder F41.1 [facility] [address] [facility] [id number] [address] [place] [phone] 18 Jan, 2020 [facility] [address] [place] [id number] 13 Jan, 2020 Coronary artery disease involving [place] coronary artery of [place] heart without angina pectoris I25.10 [facility] [address] [id number] [address] [place] [phone] Jan, [facility] [address] [facility] [id number] [address] [place] [address] Dec, Atherosclerotic heart diseas e of [place] 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 [facility] [address] [facility] [id number] [address] [place] [phone] Dec, [facility] [address] [place] [id number] Dec, Mood disorder F39 ; Acute on chronic systolic congestive heart failure I50.23 ; Obsessive thinking F42.8 and HTN (hypertension) I10 [facility] [address] [place] [id number] Nov, Cough R05 [facility] [id number] [place] [address] Nov, [facility] [id number] [place] [phone] Oct, [facility] [address] [place] [id number] Oct, Obsessive thinking F42.8 ; Generalized anxiety disorder F41.1 ; Primary insomnia F51.01 and Restless legs G25.81 [facility] [address] [facility] [id number] [address] [place] [id number] Sep, [facility] [address] [place] [id number] Aug, Coronary artery disease involving [place] coronary artery of [place] heart without angina pectoris I25.10 [facility] [address] [facility] [id number] [address] [place] [phone] Jul, [facility] [address] [facility] [id number] [address] [place] [id number] Jul, [facility] [address] [facility] [id number] [address] [place] [phone] Jul, [facility] [address] [facility] [id number] [address] [place] [id number] Jul, [facility] [address] [id number] [address] [place] [address] Jul, [facility] [address] [place] [id number] Jun, Acute on chronic systolic congestive heart failure I50.23 and Atherosclerotic heart disease of [place] 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 [facility] [address] [id number] [address] [place] [phone] Jun, [facility] [address] [id number] [address] [place] [id number] Jun, [facility] [address] [id number] [address] [place] [phone] Jun, [facility] [address] [id number] [address] [place] [address] Jun, [facility] [address] [id number] [address] [place] [id number] Jun, [facility] [address] [id number] [address] [place] [phone] Jun, [facility] [address] [id number] [address] [place] [address] Jun, [facility] [address] [id number] May, Pressure injury of right ankle, stage 2 L89.512 and Constipation, unspecified constipation type K59.00 [facility] [address] [id number] [address] [place] [address] May, [facility] [address] [place] [id number] April, Constipation, unspecified constipation type K59.00 ; Pressure injury of right ankle, stage 1 L89.511 and Vascular dementia with behavior disturbance F01.51 [facility] [address] [id number] [address] [place] [phone] Mar, [facility] [address] [id number] [address] [place] [phone] Mar, [facility] [address] [id number] [address] [place] [phone] Mar, [facility] [address] [id number] [address] [place] [id number] Mar, [facility] [address] [id number] [address] [place] [phone] Jan, [facility] [address] [id number] [address] [place] [phone] Jan, [facility] [address] [id number] [address] [place] [phone] Jan, [facility] [address] [place] [id number] Jan, Pneumonia due to infectious organism, unspecified laterality, unspecified part of lung J18.9 ; Fall from bed, sequela W06.XXXS ; Hyponatremia E87.1 and Slow transit constipation K59.01 [facility] [address] [id number] [address] [place] [phone] Jan, [facility] [address] [facility] [id number] [address] [place] [phone] Jan, [facility] [address] [facility] [id number] [address] [place] [phone] Jan, [facility] [address] [facility] [id number] [address] [place] [address] Dec, [facility] [address] [place] [id number] Dec, Other depression F32.89 ; Alzheimer''s disease with late onset G30.1 and Dementia in other diseases classified elsewhere with behavioral disturbance F02.81 [facility] [address] [facility] [id number] [address] [place] [id number] Dec, [facility] [address] [place] [id number] Dec, [facility] [address] [place] [id number] Nov, Generalized anxiety disorder F41.1 and Obsessive thinking F42.8 [facility] [address] [id number] [address] [place] [id number] Nov, [facility] [address] [id number] [address] [place] [phone] Oct, [facility] [address] [id number] [address] [place] [phone] Oct, [facility] [address] [id number] [address] [place] [phone] Oct, [facility] [address] [id number] [address] [place] [phone] Oct, [facility] [address] [facility] [id number] [address] [place] [id number] Oct, [facility] [address] [place] [id number] Oct, Generalized anxiety disorder F41.1 and Obsessive thinking F42.8 [facility] [address] [facility] [id number] [address] [place] [address] Sep, [facility] [address] [facility] [id number] [address] [place] [phone] Sep, [facility] [address] [id number] [address] [place] [id number] Sep, [facility] [address] [facility] [id number] [address] [place] [address] Sep, [facility] [address] [id number] Sep, Generalized anxiety disorder F41.1 ; Obsessive thinking F42.8 and Mood disorder F39 [facility] [address] [id number] [address] [place] [phone] Sep, [facility] [address] [id number] [address] [place] [address] Sep, [facility] [address] [place] [id number] Sep, [facility] [address] [id number] [address] [place] [phone] Sep, [facility] [address] [facility] [id number] [address] [place] [phone] Sep, [facility] [address] [place] [id number] Sep, Obsessive thinking F42.8 [facility] [address] [id number] [address] [place] [phone] Sep, [facility] [address] [id number] [address] [place] [phone] Sep, [facility] [address] [id number] [address] [place] [id number] Aug, [facility] [address] [id number] [address] [place] [id number] Aug, [facility] [address] [facility] [id number] [address] [place] [phone] Aug, Positive urine drug screen R 82.5 [facility] [address] [place] [id number] Aug, [facility] [address] [id number] [address] [place] [phone] Aug, [facility] [address] [id number] [address] [place] [phone] Aug, [facility] [address] [id number] [address] [place] [id number] 17 Aug, 2018 Irritable bowel syndrome wit h diarrhea K58.0 [facility] [address] [id number] [address] [place] [phone] Aug, [facility] [address] [id number] [address] [place] [id number] 13 Aug, 2018 Obsessive thinking F42.8 ; I nsomnia, unspecified type G47.00 and Other chronic pain G89.29 [facility] [address] [place], [place] [id number] Aug, Obsessive thinking F42.8 ; Irritable bowel syndrome with diarrhea K58.0 ; Pain in right foot M79.671 ; Pain of left foot M79.672 and Gastroesophageal reflux disease without esophagitis K21.9 [place] [id number] [place] [address] Aug, [facility] [id number] [place] [address] Jul, [facility] [id number] [place] [address] Jun, [place] [id number] [place] [address] Jun, [facility] [address] [place] [id number] Jun, Left lower quadrant pain R10.32 and Left leg pain M79.605 [place] [id number] [place] [address] Jun, [facility] [address] [place] [id number] Jun, Pain in left hip M25.552 ; Pain in right hip M25.551 and Primary insomnia F51.01 [place] [id number] [place] [address] Jun, [facility] [address] [place] [id number] May, [place] [address] [id number] [address] [place] [address] May, [place] [id number] [place] [phone] May, [facility] [address] [place], [place] [id number] May, Mood disorder F39 [facility] [address] [facility] [id number] [address] [place] [address] May, [facility] [address] [facility] [id number] [address] [place] [address] April, [facility] [address] [place], [place] [id number] April, Generalized anxiety disorder F41.1 ; Obsessive thinking F42.8 and Insomnia, unspecified type G47.00 [facility] [id number] [place] [phone] April, [facility] [id number] [place] [address] April, Rash of face R21 [facility] [id number] [place] [address] Mar, [facility] [id number] [place] [address] Mar, [facility] [address] [facility] [id number] [address] [place] [address] Mar, [facility] [id number] [place] [phone] Jan, [facility] [id number] [place] [address] Jan, [facility] [address] [place] [id number] Jan, Constipation, unspecified constipation type K59.00 and Other chronic pain G89.29 [facility] [address] [facility] [id number] [address] [place] [address] Jan, [facility] [address] [place] [id number] Jan, Obsessive thinking F42.8 and Coarse tremors G25.2 [facility] [address] [id number] [place] [id number] Jan, [facility] [address] [id number] [place] [id number] Jan, [facility] [address] [place], [place] [id number] Jan, Generalized anxiety disorder F41.1 ; Obsessive thinking F42.8 ; Callus of foot L84 and 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 [facility] [id number] [place] [address] Dec, Generalized anxiety disorder F41.1 and Severe episode of recurrent major depressive disorder, without psychotic features F33.2 [place] [id number] [place] [address] Nov, [place] [id number] [place] [address] Nov, [facility] [address] [place], [place] [id number] Nov, Oropharyngeal dysphagia R13.12 ; Generalized anxiety disorder F41.1 and 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 [facility] [address] [facility] [id number] [address] [place] [address] Nov, [facility] [address] [id number] [place] [facility] [place] [id number] Nov, [facility] [address] [facility] [id number] [address] [place] [address] Nov, [facility] [address] [facility] [id number] [address] [place] [phone] Nov, [facility] [address] [facility] [id number] [address] [place] [address] Oct, Constipation, unspecified co nstipation type K59.00 and Mood disorder F39 [facility] [address] [facility] [id number] [address] [place] [phone] Oct, [facility] [address] [id number] [facility] [facility] [place] [id number] Sep, [facility] [address] [id number] [place] [id number] Sep, [facility] [address] [id number] [place] [id number] Sep, [facility] [address] [id number] [place] [id number] Sep, [facility] [address] [place] [id number] Sep, Generalized abdominal pain R10.84 [facility] [address] [facility] [id number] [address] [place] [id number] Sep, [facility] [address] [id number] [place] [id number] Sep, Generalized anxiety disorder F41.1 and P rimary insomnia F51.01 [facility] [address] [id number] [place] [id number] Aug, [facility] [address] [id number] [place] [id number] Aug, Generalized anxiety disorder F41.1 [facility] [address] [facility] [id number] [address] [place] [phone] Jul, [facility] [address] [place] [id number] Jul, Obsessive thinking F42.8 [facility] [address] [facility] [id number] [address] [place] [phone] Jul, Generalized anxiety disorder F41.1 and Irritable bowel syndrome with diarrhea K58.0 [facility] [address] [id number] [place]IME[place] [id number] Jul, Generalized anxiety disorder F41.1 [facility] [address] [id number] JIMENA [place] [id number] Jun, Generalized anxiety disorder F41.1 [facility] [address] [facility] [id number] [address] [place] [phone] May, [facility] [address] [id number] May, Generalized anxiety disorder F41.1 ; Irritable bowel syndrome with diarrhea K58.0 and Coarse tremors G25.2 [facility] [address] [id number] [address] [place] [id number] April, [facility] [address] [id number] [address] [place] [id number] April, [facility] [address] [id number] [address] [place] [phone] April, [facility] [address] [id number] [address] [place] [id number] Mar, [facility] [address], [place] [id number] Mar, Severe episode of recurrent major depressive disorder, without psychotic features F33.2 and Pain in left hip M25.552 [facility] [address] [id number] [address] [place] [id number] Mar, [facility] [address] [id number] [address] [place] [phone] Mar, [facility] [address] [id number] [address] [place] [id number] Mar, [facility] [address] [id number] [address] [place] [id number] Mar, Pain in right hip M25.551 an d Self-care deficit in patient living alone R46.89 [facility] [address] [id number] [address] [place] [id number] Jan, Other chronic pain G89.29 ; Pain in left hip M25.552 and Slow transit constipation K59.01 [facility] [address] [id number] [address] [place] [address] Jan, [facility] [address] [id number] [address] [place] [address] Dec, Other depression F32.89 ; Co nstipation, unspecified constipation type K59.00 and Insomnia, unspecified type G47.00 [place] [address] [place] [id number] [place] [id number] Nov, Reactive depression F32.9 ; Chronic idiopathic constipation K59.04 ; Generalized anxiety disorder F41.1 ; Coarse tremors G25.2 ; Gastroesophageal reflux disease without esophagitis K21.9 ; Dysthymic disorder F34.1 ; Vitamin deficiency, unspecified E56.9 and Primary insomnia F51.01 [place] [address] [address] Nov, [place] [address] [address] Nov, [place] [address] [address] Nov, [place] [address] [address] Nov, Reactive depression F32.9 ; Essential hypertension [...] intake D50.8 and Vitamin deficiency, unspecified E56.9 [place] [id number] [place] [address] Oct, [place] [address] [place] [id number] [place] [address] Oct, [place] [address] [place] [id number] [place] [address] Oct, [place] [address] [address] 16 Oct, 2016 Generalized anxiety disorder F41.1 ; Poor appetite R63.0 ; Dehydration E86.0 and Failure to thrive in adult R62.7 [facility] [address] [facility] [id number] [address] [place] [address] 07 Oct, 2016 Generalized anxiety disorder F41.1 and Failure to thrive in adult R62.7 [facility] [address] [place] [id number] [address] [place] [id number] 03 Oct, 2016 [facility] [address] [facility] [id number] [address] [place] [phone] Oct, [facility] [address] [place] [address] [id number] [place] [address] Sep, Vaginal discharge N89.8 and Acute cystitis with hematuria N30.01 [facility] [address] [place] [id number] [address] [place] [address] Sep, [facility] [address] [place] [id number] [address] [place] [address] Sep, [facility] [address] [address] Sep, Dysthymic disorder F34.1 ; A cute vaginitis N76.0 ; Dysuria R30.0 and Vaginal yeast infection B37.3 [facility] [address] [place] [id number] [address] [place] [address] Aug, [facility] [address] [place] [id number] [address] [place] [address] Aug, [facility] [address] [facility] [id number] [address] [place] [address] Aug, Foul smelling urine R82.90 ; Rapid heart rate R00.0 and Flatulence R14.3 [facility] [address] [place] [id number] [address] [place] [address] Aug, [facility] [address] [place] [id number] [address] [place] [address] Jul, Constipation, unspecified co nstipation type K59.00 ; Weak R53.1 ; Poor appetite R63.0 ; Coronary artery disease involving [place] heart without angina pectoris, unspecified vessel or lesion type I25.10 ; Fatigue, unspecified type R53.83 ; Urinary incontinence, unspecified type R32 and Insomnia, unspecified type G47.00 [place] [id number] [facility] [id number] [address] [place] [address] Jul, [place] [address] [place] [id number] [address] [place] [address] Jun, Dysuria R30.0 [place] [address] [place] [id number] [place] [address] Jun, [place] [address] [place] [id number] [place] [address] Jun, Urinary tract infection, sit e not specified N39.0 ; Acute vaginitis N76.0 and Diarrhea, unspecified type R19.7 [place] [address] [place] [id number] [place] [address] May, [place] [address] [address] April, [facility] [address] [place] [id number] [address] [place] [address] [id number] April, Encounter for dental examina tion Z01.20 [facility] [address] [place] [id number] [address] [place] [address] April, [place] [address] [address] April, Tremor R25.1 and Episodic te nsion-type headache, not intractable G44.219 [facility] [address] [place] [id number] [address] [place] [address] Mar, [facility] [address] [place] [id number] [place] [address] [place] [address] 15 Jan, 2016 Mood disorder F39 [facility] [address] [id number] [address] [place] [address] Jan, [facility] [address] [id number] [address] [place] [address] Jan, [facility] [address] [id number] [address] [place] [address] Jan, [facility] [address] [id number] [address] [place] [address] Jan, [facility] [address] [id number] [address] [place] [address] Jan, [facility] [address] [facility] [id number] [address] [place] [address] Jan, [facility] [address] [facility] [id number] [address] [place] [address] Dec, Acute diarrhea R19.7 [facility] [address] [id number] [address] [place] [address] Dec, [facility] [address] [facility] [id number] [address] [place] [address] Dec, [facility] [address] [facility] [id number] [address] [place] [address] Dec, [facility] [address] [id number] [address] [place] [address] Dec, N&V (nausea and vomiting) R1 1.2 [facility] [address] [id number] [address] [place] [address] Dec, Generalized anxiety disorder F41.1 [facility] [address] [facility] [id number] [address] [place] [address] Dec, Generalized anxiety disorder F41.1 [facility] [address] [facility] [id number] [address] [place] [address] Nov, Post concussion syndrome F07 .81 [facility] [address] [facility] [id number] [address] [place] [address] Nov, Generalized anxiety disorder F41.1 [facility] [address] [facility] [id number] [address] [place] [address] Nov, [facility] [address] [facility] [id number] [address] [place] [address] Nov, Generalized anxiety disorder F41.1 [facility] [address] [id number] [address] [place] [address] [id number] Oct, Dental caries K02.9 [facility] [address] [facility] [id number] [place] [address] Oct, [facility] [address] [facility] [id number] [address] [place] [address] [id number] Oct, Dental examination Z01.20 [facility] [address] [id number] [place] [address] [id number] Oct, Encounter for dental examina tion Z01.20 [facility] [address] [address] Oct, CAD (coronary artery disease ) I25.10 [facility] [address] [place] [id number] [address] [place] [address] Sep, Generalized anxiety disorder F41.1 [facility] [address] [facility] [id number] [address] [place] [address] Sep, [facility] [address] [facility] [id number] [address] [place] [address] Sep, Rash and other nonspecific s kin eruption R21 and Yeast vaginitis B37.3 [facility] [address] [facility] [id number] [address] [place] [address] Sep, Generalized anxiety disorder F41.1 [facility] [address] [facility] [id number] [address] [place] [address] Aug, Insect bites 919.4 and Hemor rhoids 455.6 [facility] [address] [address] Aug, Generalized anxiety disorder 300.02 [facility] [address] [address] Aug, [facility] [address] [address] Aug, [facility] [address] [address] Aug, Generalized anxiety disorder 300.02 ; No condition on [place] V71.09 ; Heart problem 429.9 and Hypertension 401.9 [facility] [address] [address] Aug, [facility] [address] [address] Jul, [facility] [address] [address] Jul, [facility] [address] [address] Jul, [facility] [address] [address] Jul, [facility] [address] [address] Jul, Rash 782.1 [facility] [address] [address] Jul, UTI (urinary tract infection ) 599.0 [facility] [address] [address] Jul, [facility] [address] [place] [id number] [address] [place] [address] Jun, Dysthymia 300.4 and Anxiety 300.00 [facility] [address] [id number] [address] [place] [address] Jun, 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 [facility] [address] [id number] [address] [place] [address] May, [facility] [address] [id number] [address] [place] [address] May, [facility] [address] [id number] [address] [place] [address] May, Unspecified breast screening V76.10 [facility] [address] [id number] [address] [place] [id number] May, Dental examination V72.2 [facility] [address] [id number] [address] [place] [address] April, [facility] [address] [id number] [address] [place] [address] April, [facility] [address] [id number] [address] [place] [address] [id number] April, Dental examination V72.2 [facility] [address] [id number] [address] [place] [address] [id number] April, Dental examination V72.2 [facility] [address] [id number] [address] [place] [address] Mar, [facility] [address] [id number] [address] [place] [address] Mar, [facility] [address] [id number] [address] [place] [address] Jan, [facility] [address] [id number] [address] [place] [address] Jan, [facility] [address] [id number] [address] [place] [phone] Jan, [facility] [address] [id number] [address] [place] [address] Jan, [facility] [address] [id number] [facility] [place] [address] 16 Jan, 2015 [facility] [address] [id number] [address] [place] [address], [place] [address] 16 Jan, 2015 [facility] [address] [id number] [address] [place] [address], [place] [address] 13 Jan, 2015 [facility] [address] [id number] [address] [place] [address], [place] [address] 13 Jan, 2015 [facility] [address] [id number] [address] [place] [address], [place] [address] 11 Jan, 2015 [facility] [address] [id number] [address] [place] [address], [place] [address] Jan, [facility] [address] [id number] [address] [place] [address], [place] [address] Jan, [facility] [address] [id number] [address] [place] [address], [place] [address] Jan, [facility] [address] [id number] [address] [place] [address], [place] [address] Jan, [facility] [address] [id number] [address] [place] [address], [place] [address] Jan, [facility] [address] [id number] [address] [place] [address], [place] [address] Jan, 2014 [facility] [address] [id number] [address] [place] [address], [place] [address] Jan, 2014 [facility] [address] [id number] [address] [place] [address], [place] [address] Jan, 2014 [facility] [address] [id number] [address] [place] [address], [place] [address] Jan, 2014 [facility] [address] [id number] [address] [place] [address], [place] [address] Jan, 2014 [facility] [address] [id number] [address] [place] [address], [place] [address] Jan, 2014 [facility] [address] [id number] [address] [place] [address], [place] [address] Jan, [facility] [address] [id number] [address] [place] [address], [place] [address] Jan, [facility] [address] [id number] [address] [place] [address], [place] [address] Dec, [facility] [address] [id number] [address] [place] [address], [place] [address] Dec, [facility] [address] [id number] [address] [place] [address], [place] [address] Dec, [facility] [address] [id number] [address] [place] [address], [place] [address] Dec, [facility] [address] [id number] [address] [place] [address], [place] [address] Nov, [facility] [address] [id number] [address] [place] [address], [place] [address] Nov, [facility] [address] [id number] [address] [place] [address], [place] [address] Nov, [facility] [address] [id number] [address] [place] [address], [place] [address] Nov, [facility] [address] [id number] [address] [place] [address], [place] [address] Nov, [facility] [address] [id number] [address] [place] [address], [place] [address] Nov, [facility] [address] [id number] [address] [place] [address], [place] [address] Nov, [facility] [address] [id number] [address] [place] [address], [place] [address] Oct, [facility] [address] [id number] [address] [place] [address], [place] [address] Oct, [facility] [address] [id number] [address] [place] [address], [place] [address] Oct, [facility] [address] [id number] [address] [place] [address], [place] [address] Oct, [facility] [address] [id number] [address] [place] [address], [place] [address] Oct, [facility] [address] [id number] [address] [place] [address], [place] [address] Oct, [facility] [address] [id number] [address] [place] [address], [place] [address] Oct, [facility] [address] [id number] [address] [place] [address], [place] [address] Oct, [facility] [address] [id number] [address] [place] [address], [place] [address] Oct, [facility] [address] [id number] [address] [place] [address], [place] [address] Oct, [facility] [address] [id number] [address] [place] [address], [place] [address] Oct, [facility] [address] [id number] [address] [place] [address], [place] [address] Oct, [facility] [address] [id number] [address] [place] [address], [place] [address] Sep, [facility] [address] [id number] [address] [place] [address], [place] [address] Sep, [facility] [address] [id number] [address] [place] [address], [place] [address] Sep, [facility] [address] [id number] [address] [place] [address], [place] [address] Sep, [facility] [address] [id number] [address] [place] [address], [place] [address] Jul, [facility] [address] [id number] [address] [place] [address] [place] [address] Jul, [facility] [address] [id number] [address] [place] [address], [place] [address] Jul, [facility] [address] [id number] [address] [place] [address], [place] [address] Jul, [facility] [address] [id number] [address] [place] [address], [place] [address] Jun, [facility] [address] [id number] [address] [place] [address], [place] [address] Jun, [facility] [address] [id number] [address] [place] [address], [place] [address] Jun, [facility] [address] [id number] [address] [place] [address], [place] [address] Jun, [facility] [address] [id number] [address] [place] [address], [place] [address] May, [facility] [address] [id number] [address] [place] [address], [place] [address] May, [facility] [address] [id number] [address] [place] [address], [place] [address] April, [facility] [address] [id number] [address] [place] [address], [place] [address] April, [facility] [address] [id number] [address] [place] [address], [place] [address] April, [facility] [address] [id number] [address] [place] [address], [place] [address] April, [facility] [address] [id number] [address] [place] [address], [place] [address] April, [facility] [address] [id number] [address] [place] [address], [place] [address] April, [facility] [address] [id number] [address] [place] [address], [place] [address] April, [facility] [address] [id number] [facility] [place] [address] April, [facility] [address] [id number] [address] [place] [address], [place] [address] April, [facility] [address] [id number] [address] [place] [address], [place] [address] Mar, [facility] [address] [id number] [address] [place] [address], [place] [address] Mar, [facility] [address] [id number] [address] [place] [address], [place] [address] Mar, [facility] [address] [id number] [address] [place] [address], [place] [address] Mar, [facility] [address] [id number] [address] [place] [address], [place] [address] Jan, [facility] [address] [id number] [address] [place] [address], [place] [address] Jan, [facility] [address] [id number] [address] [place] [address], [place] [address] Jan, [facility] [address] [id number] [address] [place] [address], [place] [address] Jan, [facility] [address] [id number] [address] [place] [address], [place] [address] Jan, [facility] [address] [id number] [address] [place] [address], [place] [address] Jan, [facility] [address] [id number] [address] [place] [address], [place] [address] Jan, [facility] [address] [id number] [address] [place] [address], [place] [address] Jan, [facility] [address] [id number] [address] [place] [address], [place] [address] Jan, [facility] [address] [id number] [address] [place] [address], [place] [address] Jan, [facility] [address] [id number] [address] [place] [address], [place] [address] Jan, [facility] [address] [id number] [address] [place] [address], [place] [address] Jan, [facility] [address] [id number] [address] [place] [address], [place] [address] Dec, [facility] [address] [id number] [address] [place] [address], [place] [address] Dec, [facility] [address] [id number] [address] [place] [address], [place] [address] Dec, [facility] [address] [id number] [address] [place] [address], [place] [address] Dec, [facility] [address] [id number] [address] [place] [address], [place] [address] Nov, [facility] [address] [id number] [address] [place] [address], [place] [address] Nov, [facility] [address] [id number] [address] [place] [address], [place] [address] Nov, [facility] [address] [id number] [address] [place] [address], [place] [id number] Nov, [facility] [address] [id number] [address] [place] [address], [place] [address] Oct, [facility] [address] [id number] [address] [place] [address], [place] [address] Oct, [facility] [address] [id number] [address] [place] [address], [place] [address] Sep, [facility] [address] [id number] [address] [place] [address], [place] [address] Sep, [facility] [address] [id number] [address] [place] [address], [place] [address] Jul, [facility] [address] [id number] [address] [place] [address], [place] [address] Jul, [facility] [address] [id number] [address] [place] [address], [place] [id number] Jun, [facility] [address] [id number] [address] [place] [address], [place] [address] Jun, [facility] [address] [id number] [address] [place] [address], [place] [address] Jun, [facility] [address] [id number] [address] [place] [address], [place] [address] May, [facility] [address] [id number] [address] [place] [address], [place] [address] May, [facility] [address] [id number] [address] [place] [address], [place] [address] May, [facility] [address] [id number] [address] [place] [address], [place] [address] May, [facility] [address] [id number] [address] [place] [address], [place] [address] May, [facility] [address] [id number] [address] [place] [address], [place] [address] April, [facility] [address] [id number] [address] [place] [address], [place] [address] April, [facility] [address] [id number] [address] [place] [address], [place] [id number] April, [facility] [address] [id number] [address] [place] [address], [place] [address] April, [facility] [address] [id number] [address] [place] [address], [place] [address] April, [facility] [address] [id number] [address] [place] [address], [place] [address] April, [facility] [address] [id number] [address] [place] [address], [place] [address] Mar, [facility] [address] [id number] [address] [place] [address], [place] [address] 15 Mar, 2013 [facility] [address] [id number] [address] [place] [address], [place] [address] Jan, [facility] [address] [id number] [address] [place] [address], [place] [address] Jan, [facility] [address] [id number] [address] [place] [address], [place] [address] Jan, [facility] [address] [id number] [address] [place] [address], [place] [address] Jan, [facility] [address] [id number] [address] [place] [address], [place] [address] Jan, [facility] [address] [id number] [address] [place] [address], [place] [address] Jan, [facility] [address] [id number] [address] [place] [address], [place] [id number] 05 Jan, 2013 [facility] [address] [id number] [address] [place] [address], [place] [address] Jan, [facility] [address] [id number] [address] [place] [address], [place] [address] Jan, [facility] [address] [id number] [address] [place] [address], [place] [address] Jan, [facility] [address] [id number] [address] [place] [address], [place] [address] Jan, [facility] [address] [id number] [address] [place] [address], [place] [address] Dec, [facility] [address] [id number] [address] [place] [address], [place] [address] Nov, [facility] [address] [id number] [address] [place] [address], [place] [address] Nov, [facility] [address] [id number] [address] [place] [address], [place] [address] 26 Nov, 2012 [facility] [address] [id number] [address] [place] [address], [place] [address] Nov, [facility] [address] [id number] [address] [place] [address], [place] [address] Nov, [facility] [address] [id number] [address] [place] [address], [place] [address] Nov, [facility] [address] [id number] [address] [place] [address], [place] [address] Nov, [facility] [address] [id number] [address] [place] [address], [place] [address] Nov, [facility] [address] [id number] [address] [place] [address], [place] [address] Nov, [facility] [address] [id number] [address] [place] [address], [place] [address] Nov, [facility] [address] [id number] [address] [place] [address], [place] [address] 18 Nov, 2012 [facility] [address] [id number] [address] [place] [address], [place] [address] Nov, [facility] [address] [id number] [address] [place] [address], [place] [address] Nov, [facility] [address] [id number] [address] [place] [address], [place] [address] Oct, [facility] [address] [id number] [address] [place] [address], [place] [address] Oct, [facility] [address] [id number] [address] [place] [address], [place] [address] Oct, [facility] [address] [id number] [address] [place] [address], [place] [address] Sep, [facility] [address] [id number] [address] [place] [address], [place] [address] Sep, [facility] [address] [id number] [address] [place] [address], [place] [address] 10 Sep, 2012 [facility] [address] [id number] [address] [place] [address], [place] [address] 10 Sep, 2012 [facility] [address] [id number] [address] [place] [address], [place] [address] 27 Aug, 2012 [facility] [address] [id number] [address] [place] [address], [place] [address] 20 Aug, 2012 [facility] [address] [id number] [address] [place] [address], [place] [address] 24 Jul, 2012 [facility] [address] [id number] [address] [place] [address], [place] [address] 27 May, 2012 [facility] [address] [id number] [address] [place] [address], [place] [address] 14 May, 2012 [facility] [address] [id number] [address] [place] [address], [place] [address] 14 May, 2012 [facility] [address] [id number] [address] [place] [address], [place] [address] April, [facility] [address] [id number] [address] [place] [address], [place] [address] Mar, [facility] [address] [id number] [address] [place] [address], [place] [address] Mar, [facility] [address] [id number] [address] [place] [address], [place] [address] 03 Mar, 2012 [facility] [address] [id number] [address] [place] [address], [place] [address] Jan, [facility] [address] [id number] [address] [place] [address], [place] [address] Jan, [facility] [address] [id number] [address] [place] [address], [place] [address] Jan, [facility] [address] [id number] [address] [place] [id number] Dec, [facility] [address] [id number] [address] [place] [address], [place] [address] Dec, [facility] [address] [id number] [address] [place] [id number] Dec, [facility] [address] [id number] [address] [place] [address], [place] [address] Dec, [facility] [address] [id number] [address] [place] [address], [place] [address] Nov, [facility] [address] [id number] [address] [place] [address], [place] [address] 15 Nov, 2011 [facility] [address] [id number] [address] [place] [address], [place] [address] Nov, [facility] [address] [id number] [address] [place] [id number] Oct, [facility] [address] [id number] [address] [place] [address], [place] [address] 31 Sep, 2011 [facility] [address] [id number] [address] [place] [address], [place] [address] 26 Sep, 2011 [facility] [address] [id number] [address] [place] [id number] 13 Sep, 2011 [facility] [address] [id number] [address] [place] [address], [place] [address] 15 Nov, 2010 [facility] [address] [id number] [address] [place] [id number] 23 Oct, 2010 [facility] [address] [id number] [address] [place] [address], [place] [id number] 19 Oct, 2010 [facility] [address] [id number] [address] [place] [address], [place] [address] 18 Oct, 2010 [facility] [address] [id number] [address] [place] [address], [place] [address] 16 Oct, 2010 [facility] [address] [id number] [address] [place] [id number] Sep, [facility] [address] [id number] [address] [place] [id number] April, [facility] [address] [id number] [address] [place] [id number] Nov, [facility] [address] [id number] [address] [place] [id number] Nov, [facility] [address] [id number] [address] [place] [id number] Nov, [facility] [address] [id number] [address] [place] [id number] Nov, [facility] [address] [id number] [address] [place] [id number] Nov, [facility] [address] [id number] [address] [place] [id number] Oct, [facility] [address] [id number] [address] [place] [id number] Oct, [facility] [address] [id number] [address] [place] [id number] Sep, [facility] [address] [id number] [address] [place] [id number] Jan, IMMUNIZATIONS No Known Immunizations SOCIAL HISTORY [...] fx 04/27/16 Hospitalization History [facility] Hx of 3 inpatient psych treatments in past in [place] oct 2016 [facility] 2016
--- OUTSIDE RECORDS SUMMARY | 2020-04-18 20:12 | XMS REPORT ---
Author Author Ave AGUIRRE Organization [facility] Address [address] [place] [address] Care Team Providers Care Clinic Scheduler Name Role Phone WOLF AGUIRRE Unavailable PROBLEMS Type Condition ICD9-CM Code LIN04-ZA Code Onset Dates Condition S tatus SNOMED Code Problem Dysthymic disorder F34.1 Active 7 2235170 Problem Poor appetite R63.0 Active 832671 06 Problem Failure to thrive in adult R62.7 Act mishel [id number] Problem Coarse tremors G25.2 Active 50192 004 Problem Iron deficiency anemia secondary to inadequate d ietary iron intake D50.8 Active 962710806 Problem Atherosclerotic heart diseas e of [place] 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 Active [id number] Problem Reactive depression F32.9 Active 06500437 Problem 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 Active 4737613 04 Problem Vascular dementia with behavior disturbance F01.51 Active [id number] Problem Oropharyngeal dysphagia R13.12 Active 71984069 Problem Sundowning F05 Active 577057360 Problem Generalized anxiety disorder F41.1 A ctive 47573866 Problem Constipation, unspecified constipation type K59.00 Active 16649255 Problem Insomnia, unspecified type G47.00 Act mishel 097322456 Problem Essential hypertension I10 Active 61505106 Problem Slow transit constipation K59.01 Acti ve 86358829 Problem Other chronic pain G89.29 Active 8 5956430 Problem Irritable bowel syndrome with diarrhea K58.0 Active 748630771 Problem Severe episode of recurrent major depressive disorder, without psychotic features F33.2 Active 30891861 Problem 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 Active 1819 3002 Problem Mood disorder F39 Active 569614 05 Problem Obsessive thinking F42.8 Active 6 2521685 Problem Dementia in other diseases c lassified elsewhere with behavioral disturbance F02.81 Active 369361603 Problem Alzheimer''s disease with late onset G30.1 Active 325323363 Problem Dyspepsia K30 Active 434439788 Problem Primary insomnia F51.01 Active 397 2004 Problem Falling R29.6 Active 787365009 Problem Other chronic pain G89.29 Active 8 0061349 Problem Gastroesophageal reflux disease without esophagitis K21.9 Active 767429139 Problem Acute on chronic systolic congestive heart failure I50.23 Active 416084287 Problem Coronary artery disease invo lving [place] coronary artery of [place] heart without angina pectoris I25.10 Active 1641 868342386 Problem Restless legs G25.81 Active 592470 08 Problem HTN (hypertension) I10 Active 3 3937366 ALLERGIES No Information ENCOUNTERS Encounter Location Date Diagnosis [facility] [address] [facility] [id number] [address] [place] [phone] April, [facility] [address] [facility] [id number] [address] [place] [address] Mar, [facility] [address] [facility] [id number] [address] [place] [phone] 16 Mar, 2020 [facility] [address] [facility] [id number] [address] [place] [phone] 15 Mar, 2020 Nausea R11.0 [facility] [address] [facility] [id number] [address] [place] [phone] 10 Mar, 2020 [facility] [address] [facility] [id number] [address] [place] [phone] 09 Mar, 2020 Falling R29.6 [facility] [address] [facility] [id number] [address] [place] [phone] 08 Mar, 2020 [facility] [address] [facility] [id number] [address] [place] [id number] 07 Mar, 2020 Generalized anxiety disorder F41.1 [facility] [address] [facility] [id number] [address] [place] [phone] 02 Mar, 2020 [facility] [address] [facility] [id number] [address] [place] [address] Jan, [facility] [address] [place] [id number] Jan, Generalized anxiety disorder F41.1 and Pressure sore on ankle, right, unstageable L89.510 [facility] [address] [facility] [id number] [address] [place] [address] Jan, [facility] [address] [facility] [id number] [address] [place] [phone] Jan, [facility] [address] [facility] [id number] [address] [place] [phone] Jan, Weakness R53.1 [facility] [address] [facility] [id number] [address] [place] [phone] Jan, [facility] [address] [facility] [id number] [address] [place] [phone] Jan, Generalized anxiety disorder F41.1 [facility] [address] [facility] [id number] [address] [place] [phone] 08 Jan, 2020 Nausea R11.0 [facility] [address] [facility] [id number] [address] [place] [phone] 03 Jan, 2020 Dyspepsia K30 [facility] [address] [facility] [id number] [address] [place] [phone] Jan, [facility] [address] [facility] [id number] [address] [place] [phone] Jan, [facility] [address] [facility] [id number] [address] [place] [phone] Jan, [facility] [address] [facility] [id number] [address] [place] [phone] Jan, [facility] [address] [facility] [id number] [address] [place] [phone] Jan, [facility] [address] [place] [id number] Jan, Generalized anxiety disorder F41.1 [facility] [address] [facility] [id number] [address] [place] [phone] 18 Jan, [address] [facility] [address] [id number] Jan, Coronary artery disease involving [place] coronary artery of [place] heart without angina pectoris I25.10 [facility] [address] [facility] [id number] [address] [place] [phone] Jan, [facility] [address] [facility] [id number] [address] [place] [phone] Dec, Atherosclerotic heart diseas e of [place] 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 [facility] [address] [facility] [id number] [address] [place] [address] Dec, [facility] [id number] Dec, Mood disorder F39 ; Acute on chronic systolic congestive heart failure I50.23 ; Obsessive thinking F42.8 and HTN (hypertension) I10 [address] [id number] Nov, Cough R05 [facility] [address] [facility] [id number] [address] [place] [phone] Nov, [facility] [address] [place] [id number] [address] [place] [phone] Oct, [facility] [address] [id number] Oct, Obsessive thinking F42.8 ; Generalized anxiety disorder F41.1 ; Primary insomnia F51.01 and Restless legs G25.81 [facility] [address] [facility] [id number] [address] [place] [phone] Sep, [facility] [id number] Aug, Coronary artery disease involving [place] coronary artery of [place] heart without angina pectoris I25.10 [facility] [address] [facility] [id number] [address] [place] [phone] Jul, [facility] [address] [facility] [id number] [address] [place] [phone] Jul, [facility] [address] [id number] [address] [place] [phone] Jul, [facility] [address] [id number] [address] [place] [phone] Jul, [facility] [address] [id number] [address] [place] [phone] Jul, [facility] [address] [place] [id number] Jun, Acute on chronic systolic congestive heart failure I50.23 and Atherosclerotic heart disease of [place] 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 [facility] [address] [id number] [address] [place] [phone] Jun, [facility] [address] [id number] [address] [place] [phone] Jun, [facility] [address] [id number] [address] [place] [phone] Jun, [facility] [address] [id number] [address] [place] [phone] Jun, [facility] [address] [id number] [address] [place] [phone] Jun, [facility] [address] [id number] [address] [place] [phone] Jun, [facility] [address] [id number] [address] [place] [phone] Jun, [facility] [address] [place] [id number] May, Pressure injury of right ankle, stage 2 L89.512 and Constipation, unspecified constipation type K59.00 [facility] [address] [id number] [address] [place] [phone] May, [facility] [address] [place] [id number] April, Constipation, unspecified constipation type K59.00 ; Pressure injury of right ankle, stage 1 L89.511 and Vascular dementia with behavior disturbance F01.51 [facility] [address] [id number] [address] [place] [address] Mar, [facility] [address] [id number] [address] [place] [phone] Mar, [facility] [address] [id number] [address] [place] [phone] Mar, [facility] [address] [id number] [address] [place] [phone] Mar, [facility] [address] [id number] [address] [place] [phone] Jan, [facility] [address] [id number] [address] [place] [phone] Jan, [facility] [address] [id number] [address] [place] [phone] Jan, [facility] [address] [place] [id number] Jan, Pneumonia due to infectious organism, unspecified laterality, unspecified part of lung J18.9 ; Fall from bed, sequela W06.XXXS ; Hyponatremia E87.1 and Slow transit constipation K59.01 [facility] [address] [id number] [address] [place] [phone] Jan, [facility] [address] [id number] [address] [place] [phone] Jan, [facility] [address] [id number] [address] [place] [phone] Jan, [facility] [address] [facility] [id number] [address] [place] [phone] Dec, [facility] [address] [place] [id number] Dec, Other depression F32.89 ; Alzheimer''s disease with late onset G30.1 and Dementia in other diseases classified elsewhere with behavioral disturbance F02.81 [facility] [address] [id number] [address] [place] [phone] Dec, [facility] [address] [place] [id number] Dec, [facility] [address] [place] [id number] Nov, Generalized anxiety disorder F41.1 and Obsessive thinking F42.8 [facility] [address] [id number] [address] [place] [phone] Nov, [facility] [address] [id number] [address] [place] [phone] Oct, [facility] [address] [id number] [address] [place] [phone] Oct, [facility] [address] [id number] [address] [place] [phone] Oct, [facility] [address] [id number] [address] [place] [phone] Oct, [facility] [address] [id number] [address] [place] [phone] Oct, [facility] [address] [place] [id number] Oct, Generalized anxiety disorder F41.1 and Obsessive thinking F42.8 [facility] [address] [id number] [address] [place] [phone] Sep, [facility] [address] [id number] [address] [place] [phone] Sep, [facility] [address] [id number] [address] [place] [phone] Sep, [facility] [address] [id number] [address] [place] [phone] Sep, [facility] [address] [place] [id number] Sep, Generalized anxiety disorder F41.1 ; Obsessive thinking F42.8 and Mood disorder F39 [facility] [address] [id number] [address] [place] [phone] Sep, [facility] [address] [id number] [address] [place] [phone] Sep, [facility] [address] [place] [id number] Sep, [facility] [address] [id number] [address] [place] [phone] Sep, [facility] [address] [id number] [address] [place] [phone] Sep, [facility] [address] [place] [id number] Sep, Obsessive thinking F42.8 [facility] [address] [id number] [address] [place] [phone] Sep, [facility] [address] [id number] [address] [place] [phone] Sep, [facility] [address] [id number] [address] [place] [phone] Aug, [facility] [address] [id number] [address] [place] [phone] Aug, [facility] [address] [id number] [address] [place] [phone] Aug, Positive urine drug screen R 82.5 [facility] [address] [place] [id number] Aug, [facility] [address] [id number] [address] [place] [phone] Aug, [facility] [address] [id number] [address] [place] [phone] Aug, [facility] [address] [id number] [address] [place] [phone] Aug, Irritable bowel syndrome wit h diarrhea K58.0 [facility] [address] [facility] [id number] [address] [place] [phone] Aug, [facility] [address] [facility] [id number] [address] [place] [address] Aug, Obsessive thinking F42.8 ; I nsomnia, unspecified type G47.00 and Other chronic pain G89.[address] [facility] [address] [id number] Aug, Obsessive thinking F42.8 ; Irritable bowel syndrome with diarrhea K58.0 ; Pain in right foot M79.671 ; Pain of left foot M79.672 and Gastroesophageal reflux disease without esophagitis K21.9 [facility] [address] [facility] [id number] [address] [place] [phone] Aug, [place] [address] [facility] [id number] [address] [place] [phone] Jul, [place] [address] [facility] [id number] [address] [place] [phone] Jun, [place] [address] [facility] [id number] [address] [place] [phone] Jun, [facility] [address] [id number] Jun, Left lower quadrant pain R10.32 and Left leg pain M79.605 [facility] [address] [place] [id number] [address] [place] [phone] Jun, [facility] [address] [place] [id number] Jun, Pain in left hip M25.552 ; Pain in right hip M25.551 and Primary insomnia F51.01 [facility] [address] [facility] [id number] [address] [place] [address] Jun, [facility] [address] [place] [id number] May, [facility] [place] [address] [place] [id number] [address] [place] [address] May, [facility] [address] [facility] [id number] [address] [place] [address] May, [facility] [address] [place] [id number] May, Mood disorder F39 [facility] [address] [facility] [id number] [address] [place] [phone] May, [facility] [address] [facility] [id number] [address] [place] [phone] April, [facility] [address] [place] [id number] April, Generalized anxiety disorder F41.1 ; Obsessive thinking F42.8 and Insomnia, unspecified type G47.00 [facility] [address] [facility] [id number] [address] [place] [address] April, [facility] [address] [facility] [id number] [address] [place] [phone] April, Rash of face R21 [facility] [address] [facility] [id number] [address] [place] [phone] Mar, [facility] [address] [facility] [id number] [address] [place] [phone] Mar, [facility] [address] [facility] [id number] [address] [place] [phone] Mar, [facility] [address] [facility] [id number] [address] [place] [phone] Jan, [facility] [address] [facility] [id number] [address] [place] [id number] Jan, [facility] [address] [place] [id number] Jan, Constipation, unspecified constipation type K59.00 and Other chronic pain G89.29 [facility] [address] [facility] [id number] [address] [place] [address] Jan, [facility] [address] [place] [id number] Jan, Obsessive thinking F42.8 and Coarse tremors G25.2 [place] [id number] [place] [id number] Jan, [facility] [address] [place] [id number] [place] [id number] Jan, [facility] [address] [place] [id number] Jan, Generalized anxiety disorder F41.1 ; Obsessive thinking F42.8 ; Callus of foot L84 and 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 [place] [address] [place] [id number] [address] [place] [phone] Dec, Generalized anxiety disorder F41.1 and Severe episode of recurrent major depressive disorder, without psychotic features F33.2 [place] [address] [place] [id number] [address] [place] [phone] Nov, [place] [address] [place] [id number] [address] [place] [address] Nov, [facility] [id number] Nov, Oropharyngeal dysphagia R13.12 ; Generalized anxiety disorder F41.1 and 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 [place] [address] [facility] [id number] [address] [place] [address] Nov, [place] [address] [place] [id number] [place] [id number] Nov, [place] [address] [facility] [id number] [address] [place] [phone] Nov, [place] [address] [facility] [id number] [address] [place] [phone] Nov, [place] [address] [facility] [id number] [address] [place] [address] Oct, Constipation, unspecified co nstipation type K59.00 and Mood disorder F39 [facility] [address] [facility] [id number] [address] [place] [address] Oct, [facility] [address] [id number] [place] [id number] Sep, [facility] [address] [id number] [place] [id number] Sep, [facility] [address] [id number] [place] [id number] Sep, [facility] [address] [id number] [place] [id number] Sep, [facility] [address] [place] [id number] Sep, Generalized abdominal pain R10.84 [facility] [address] [facility] [id number] [address] [place] [phone] Sep, [facility] [address] [id number] [place] [id number] Sep, Generalized anxiety disorder F41.1 and P rimary insomnia F51.01 [facility] [address] [id number] [place] [id number] Aug, [facility] [address] [id number] [place] [id number] Aug, Generalized anxiety disorder F41.1 [facility] [address] [facility] [id number] [address] [place] [phone] Jul, [facility] [address] [place] [id number] Jul, Obsessive thinking F42.8 [facility] [address] [facility] [id number] [address] [place] [address] Jul, Generalized anxiety disorder F41.1 and Irritable bowel syndrome with diarrhea K58.0 [facility] [address] [id number] [place] [id number] Jul, Generalized anxiety disorder F41.1 [facility] [id number] [place] [id number] Jun, Generalized anxiety disorder F41.1 [facility] [address] [facility] [id number] [address] [place] [phone] May, [facility] [address] [place] [id number] May, Generalized anxiety disorder F41.1 ; Irritable bowel syndrome with diarrhea K58.0 and Coarse tremors G25.2 [facility] [address] [id number] [address] [place] [address] April, [facility] [address] [facility] [id number] [address] [place] [phone] April, [facility] [address] [facility] [id number] [address] [place] [address] April, [facility] [address] [facility] [id number] [address] [place] [address] Mar, [facility] [address] [place] [id number] Mar, Severe episode of recurrent major depressive disorder, without psychotic features F33.2 and Pain in left hip M25.552 [facility] [address] [facility] [id number] [address] [place] [address] Mar, [facility] [address] [facility] [id number] [address] [place] [phone] Mar, [facility] [address] [facility] [id number] [address] [place] [phone] Mar, [facility] [address] [facility] [id number] [address] [place] [address] Mar, Pain in right hip M25.551 an d Self-care deficit in patient living alone R46.89 [facility] [address] [facility] [id number] [address] [place] [address] Jan, Other chronic pain G89.29 ; Pain in left hip M25.552 and Slow transit constipation K59.01 [place] [address] [address] Jan, [place] [address] [address] Dec, Other depression F32.89 ; Co nstipation, unspecified constipation type K59.00 and Insomnia, unspecified type G47.00 [place] [address] [address] Nov, Reactive depression F32.9 ; Chronic idiopathic constipation K59.04 ; Generalized anxiety disorder F41.1 ; Coarse tremors G25.2 ; Gastroesophageal reflux disease without esophagitis K21.9 ; Dysthymic disorder F34.1 ; Vitamin deficiency, unspecified E56.9 and Primary insomnia F51.[address] [address] Nov, [place] [address] [id number] Nov, [address] [address] Nov, [address] [address] Nov, Reactive depression F32.9 ; Essential hypertension I10 ; Generalized anxiety disorder F41.1 ; Atherosclerotic heart disease of [place] 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 ; Pain in right hip M25.551 ; Other chronic pain G89.29 ; Chronic idiopathic constipation K59.04 ; Primary insomnia F51.01 ; Coarse tremors G25.2 ; Gastroesophageal reflux disease without esophagitis K21.9 ; Iron deficiency anemia secondary to inadequate dietary iron intake D50.8 and Vitamin deficiency, unspecified E56.[address] [address] Oct, [place] [address] [address] Oct, [facility] [address] [facility] [id number] [address] [place] [address] Oct, [facility] [address] [facility] [id number] [address] [place] [address] Oct, Generalized anxiety disorder F41.1 ; Poor appetite R63.0 ; Dehydration E86.0 and Failure to thrive in adult R62.7 [facility] [address] [facility] [id number] [address] [place] [phone] 07 Oct, 2016 Generalized anxiety disorder F41.1 and Failure to thrive in adult R62.7 [facility] [address] [facility] [id number] [address] [place] [address] Oct, [facility] [address] [place] [id number] [address] [place] [address] Oct, [facility] [address] [facility] [id number] [address] [place] [address] Sep, Vaginal discharge N89.8 and Acute cystitis with hematuria N30.01 [facility] [address] [facility] [id number] [address] [place] [address] Sep, [facility] [address] [facility] [id number] [address] [place] [address] Sep, [facility] [address] [place] [id number] [address] [place] [address] Sep, Dysthymic disorder F34.1 ; A cute vaginitis N76.0 ; Dysuria R30.0 and Vaginal yeast infection B37.3 [facility] [address] [facility] [id number] [address] [place] [address] Aug, [facility] [address] [facility] [id number] [address] [place] [phone] 13 Aug, 2016 [facility] [address] [facility] [id number] [address] [place] [address] Aug, Foul smelling urine R82.90 ; Rapid heart rate R00.0 and Flatulence R14.3 [place] [address] [facility] [id number] [address] [place] [address] Aug, [facility] [address] [facility] [id number] [address] [place] [address] Jul, Constipation, unspecified co nstipation type K59.00 ; Weak R53.1 ; Poor appetite R63.0 ; Coronary artery disease involving shinnecock heart without angina pectoris, unspecified vessel or lesion type I25.10 ; Fatigue, unspecified type R53.83 ; Urinary incontinence, unspecified type R32 and Insomnia, unspecified type G47.00 [place] [address] [facility] [id number] [address] [place] [address] Jul, [place] [address] [place] [id number] [address] [place] [phone] Jun, Dysuria R30.0 [place] [address] [place] [id number] [place] [address] Jun, [place] [address] [facility] [id number] [place] [address] Jun, Urinary tract infection, sit e not specified N39.0 ; Acute vaginitis N76.0 and Diarrhea, unspecified type R19.7 [place] [address] [place] [id number] [address] [place] [address] May, [facility] [address] [place] [id number] [address] [place] [address] April, [facility] [address] [id number] [address] [place] [id number] April, Encounter for dental examina tion Z01.20 [facility] [address] [place] [id number] [address] [place] [address] April, [place] [address] [place] [id number] [place] [address] 05 May, 2016 Tremor R25.1 and Episodic te nsion-type headache, not intractable G44.219 [facility] [address] [id number] [address] [place] [address] 08 Mar, 2016 [facility] [address] [facility] [id number] [address] [place] [address] Jan, Mood disorder F39 [facility] [address] [id number] [address] [place] [address] Jan, [facility] [address] [facility] [id number] [address] [place] [address] Jan, [facility] [address] [facility] [id number] [address] [place] [address] Jan, [facility] [address] [facility] [id number] [address] [place] [address] Jan, [facility] [address] [facility] [id number] [address] [place] [address] Jan, [facility] [address] [facility] [id number] [address] [place] [address] Jan, [facility] [address] [facility] [id number] [address] [place] [address] Dec, Acute diarrhea R19.7 [facility] [address] [facility] [id number] [address] [place] [address] Dec, [facility] [address] [facility] [id number] [address] [place] [address] Dec, [facility] [address] [facility] [id number] [address] [place] [address] Dec, [facility] [address] [facility] [id number] [address] [place] [phone] 14 Dec, 2015 N&V (nausea and vomiting) R1 1.2 [facility] [address] [facility] [id number] [address] [place] [address] Dec, Generalized anxiety disorder F41.1 [facility] [address] [id number] [address] [place] [address] Dec, Generalized anxiety disorder F41.1 [facility] [address] [id number] [address] [place] [address] Nov, Post concussion syndrome F07 .81 [facility] [address] [id number] [address] [place] [address] Nov, Generalized anxiety disorder F41.1 [facility] [address] [id number] [address] [place] [address] Nov, [facility] [address] [id number] [address] [place] [address] Nov, Generalized anxiety disorder F41.1 [facility] [address] [id number] [address] [place] [address] [id number] Oct, Dental caries K02.9 [facility] [address] [id number] [address] [place] [phone] Oct, [facility] [address] [id number] [address] [place] [address] [id number] Oct, Dental examination Z01.20 [facility] [address] [id number] [address] [place] [address] [id number] 10 Oct, 2015 Encounter for dental examina tion Z01.20 [facility] [address] [facility] [id number] [address] [place] [address] Oct, CAD (coronary artery disease ) I25.10 [facility] [address] [id number] [address] [place] [address] Sep, Generalized anxiety disorder F41.1 [facility] [address] [id number] [address] [place] [address] Sep, [facility] [address] [facility] [id number] [address] [place] [address] Sep, Rash and other nonspecific s kin eruption R21 and Yeast vaginitis B37.3 [place] [address] [facility] [id number] [address] [place] [phone] Sep, Generalized anxiety disorder F41.1 [facility] [address] [facility] [id number] [address] [place] [address] Aug, Insect bites 919.4 and Hemor rhoids 455.6 [facility] [address] [place] [id number] [address] [place] [address] Aug, Generalized anxiety disorder 300.02 [facility] [address] [place] [id number] [place] [address] 08 Aug, 2015 [facility] [address] [address] Aug, [facility] [address] [phone] Aug, Generalized anxiety disorder 300.02 ; No condition on [place] II V71.09 ; Heart problem 429.9 and Hypertension 401.9 [facility] [address] [place] [id number] [address] [place] [address] Aug, [facility] [address] [place] [id number] [address] [place] [address] Jul, [facility] [address] [place] [id number] [address] [place] [address] Jul, [facility] [address] [place] [id number] [address] [place] [phone] Jul, [facility] [address] [place] [id number] [address] [place] [address] Jul, [facility] [address] [place] [id number] [address] [place] [address] Jul, Rash 782.1 [facility] [address] [place] [id number] [address] [place] [address] Jul, UTI (urinary tract infection ) 599.0 [facility] [address] [place] [id number] [address] [place] [address] Jul, [facility] [address] [id number] [address] [place] [address] Jun, Dysthymia 300.4 and Anxiety 300.00 [facility] [address] [id number] [address] [place] [address] Jun, 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 [facility] [address] [id number] [address] [place] [phone] May, [facility] [address] [id number] [address] [place] [address] May, [facility] [address] [id number] [address] [place] [address] May, Unspecified breast screening V76.10 [facility] [address] [id number] [address] [place] [address] [id number] May, Dental examination V72.2 [facility] [address] [id number] [address] [place] [address] April, [facility] [address] [id number] [address] [place] [id number] April, [facility] [address] [id number] [address] [place] [address] [id number] April, Dental examination V72.2 [facility] [address] [id number] [address] [place] [address] [id number] April, Dental examination V72.2 [facility] [address] [id number] [address] [place] [phone] Mar, [facility] [address] [id number] [address] [place] [phone] Mar, [facility] [address] [id number] [address] [place] [phone] Jan, [facility] [address] [id number] [address] [place] [phone] Jan, [facility] [address] [id number] [facility] [place] [address] 18 Jan, 2015 [facility] [address] [id number] [address] [place] [address], [place] [address] 18 Jan, 2015 [facility] [address] [id number] [facility] [place] [address] 16 Jan, 2015 [facility] [address] [id number] [address] [place] [address], [place] [address] 16 Jan, 2015 [facility] [address] [id number] [address] [place] [address], [place] [address] 13 Jan, 2015 [facility] [address] [id number] [address] [place] [address], [place] [address] 13 Jan, 2015 [facility] [address] [id number] [address] [place] [address], [place] [address] 11 Jan, 2015 [facility] [address] [id number] [address] [place] [address], [place] [address] 11 Jan, 2015 [facility] [address] [id number] [address] [place] [address], [place] [address] Jan, [facility] [address] [id number] [address] [place] [address], [place] [address] Jan, [facility] [address] [id number] [address] [place] [address], [place] [address] Jan, [facility] [address] [id number] [address] [place] [address], [place] [address] Jan, [facility] [address] [id number] [address] [place] [address], [place] [address] Jan, [facility] [address] [id number] [address] [place] [address], [place] [address] Jan, [facility] [address] [id number] [address] [place] [address], [place] [address] Jan, [facility] [address] [id number] [address] [place] [address], [place] [address] 10 Jan, 2014 [facility] [address] [id number] [address] [place] [address], [place] [address] Jan, 2014 [facility] [address] [id number] [address] [place] [address], [place] [address] Jan, 2014 [facility] [address] [id number] [address] [place] [address], [place] [address] Jan, 2014 [facility] [address] [id number] [address] [place] [address], [place] [address] Jan, [facility] [address] [id number] [address] [place] [address], [place] [address] Dec, [facility] [address] [id number] [address] [place] [address], [place] [address] Dec, [facility] [address] [id number] [address] [place] [address], [place] [address] Dec, [facility] [address] [id number] [address] [place] [address], [place] [address] Dec, [facility] [address] [id number] [address] [place] [address], [place] [address] Nov, [facility] [address] [id number] [address] [place] [address], [place] [address] Nov, [facility] [address] [id number] [address] [place] [address], [place] [address] Nov, [facility] [address] [id number] [address] [place] [address], [place] [address] Nov, [facility] [address] [id number] [address] [place] [address], [place] [address] Nov, [facility] [address] [id number] [address] [place] [address], [place] [address] Nov, [facility] [address] [id number] [address] [place] [address], [place] [address] Nov, [facility] [address] [id number] [address] [place] [address], [place] [address] Oct, [facility] [address] [id number] [address] [place] [address], [place] [address] Oct, [facility] [address] [id number] [address] [place] [address], [place] [address] Oct, [facility] [address] [id number] [address] [place] [address], [place] [address] Oct, [facility] [address] [id number] [address] [place] [address], [place] [address] Oct, [facility] [address] [id number] [address] [place] [address], [place] [address] Oct, [facility] [address] [id number] [address] [place] [address], [place] [address] Oct, [facility] [address] [id number] [address] [place] [address], [place] [address] Oct, [facility] [address] [id number] [address] [place] [address], [place] [address] Oct, [facility] [address] [id number] [address] [place] [address], [place] [address] Oct, [facility] [address] [id number] [address] [place] [address], [place] [address] Oct, [facility] [address] [id number] [address] [place] [address], [place] [address] Oct, [facility] [address] [id number] [address] [place] [address], [place] [address] Sep, [facility] [address] [id number] [address] [place] [address], [place] [address] Sep, [facility] [address] [id number] [address] [place] [address], [place] [address] Sep, [facility] [address] [id number] [address] [place] [address] [place] [address] Sep, [facility] [address] [id number] [address] [place] [address], [place] [address] Jul, [facility] [address] [id number] [address] [place] [address], [place] [address] Jul, [facility] [address] [id number] [address] [place] [address], [place] [address] Jul, [facility] [address] [id number] [address] [place] [address], [place] [address] Jul, [facility] [address] [id number] [address] [place] [address], [place] [address] Jun, [facility] [address] [id number] [address] [place] [address], [place] [address] Jun, [facility] [address] [id number] [address] [place] [address], [place] [address] Jun, [facility] [address] [id number] [address] [place] [address], [place] [address] Jun, [facility] [address] [id number] [address] [place] [address], [place] [address] May, [facility] [address] [id number] [address] [place] [address], [place] [address] May, [facility] [address] [id number] [address] [place] [address], [place] [address] April, [facility] [address] [id number] [address] [place] [address], [place] [address] April, [facility] [address] [id number] [address] [place] [address], [place] [address] April, [facility] [address] [id number] [address] [place] [address], [place] [address] April, [facility] [address] [id number] [address] [place] [address], [place] [address] April, [facility] [address] [id number] [facility] [place] [address] April, [facility] [address] [id number] [address] [place] [address], [place] [address] April, [facility] [address] [id number] [address] [place] [address], [place] [address] April, [facility] [address] [id number] [address] [place] [address], [place] [address] April, [facility] [address] [id number] [address] [place] [address], [place] [address] Mar, [facility] [address] [id number] [address] [place] [address], [place] [address] Mar, [facility] [address] [id number] [address] [place] [address], [place] [address] Mar, [facility] [address] [id number] [address] [place] [address], [place] [address] Mar, [facility] [address] [id number] [address] [place] [address], [place] [address] Jan, [facility] [address] [id number] [address] [place] [address], [place] [address] Jan, [facility] [address] [id number] [address] [place] [address], [place] [address] Jan, [facility] [address] [id number] [address] [place] [address], [place] [address] Jan, [facility] [address] [id number] [address] [place] [address], [place] [address] Jan, [facility] [address] [id number] [address] [place] [address], [place] [address] Jan, [facility] [address] [id number] [address] [place] [address], [place] [address] 07 Jan, 2014 [facility] [address] [id number] [address] [place] [address], [place] [address] Jan, [facility] [address] [id number] [address] [place] [address], [place] [address] Jan, [facility] [address] [id number] [address] [place] [address], [place] [address] Jan, [facility] [address] [id number] [address] [place] [address], [place] [address] Jan, [facility] [address] [id number] [address] [place] [address], [place] [address] Jan, [facility] [address] [id number] [address] [place] [address], [place] [address] Dec, [facility] [address] [id number] [address] [place] [address], [place] [address] Dec, [facility] [address] [id number] [address] [place] [address], [place] [address] Dec, [facility] [address] [id number] [address] [place] [address], [place] [address] Dec, [facility] [address] [id number] [address] [place] [address], [place] [address] Nov, [facility] [address] [id number] [address] [place] [address], [place] [address] Nov, [facility] [address] [id number] [address] [place] [address], [place] [address] Nov, [facility] [address] [id number] [address] [place] [address], [place] [address] Nov, [facility] [address] [id number] [address] [place] [address], [place] [address] Oct, [facility] [address] [id number] [address] [place] [address], [place] [address] Oct, [facility] [address] [id number] [address] [place] [address], [place] [address] Sep, [facility] [address] [id number] [address] [place] [address], [place] [address] Sep, [facility] [address] [id number] [address] [place] [address], [place] [address] Jul, [facility] [address] [id number] [address] [place] [address], [place] [address] Jul, [facility] [address] [id number] [address] [place] [address], [place] [address] Jun, [facility] [address] [id number] [address] [place] [address], [place] [address] Jun, [facility] [address] [id number] [address] [place] [address], [place] [address] Jun, [facility] [address] [id number] [address] [place] [address], [place] [address] May, [facility] [address] [id number] [address] [place] [address], [place] [address] May, [facility] [address] [id number] [address] [place] [address], [place] [address] May, [facility] [address] [id number] [address] [place] [address], [place] [address] May, [facility] [address] [id number] [address] [place] [address], [place] [address] May, [facility] [address] [id number] [address] [place] [address], [place] [address] April, [facility] [address] [id number] [address] [place] [address], [place] [address] April, [facility] [address] [id number] [address] [place] [address], [place] [address] April, [facility] [address] [id number] [address] [place] [address], [place] [address] April, [facility] [address] [id number] [address] [place] [address], [place] [address] April, [facility] [address] [id number] [address] [place] [address], [place] [id number] April, [facility] [address] [id number] [address] [place] [address], [place] [address] Mar, [facility] [address] [id number] [address] [place] [address], [place] [address] Mar, [facility] [address] [id number] [address] [place] [address], [place] [address] Jan, [facility] [address] [id number] [address] [place] [address], [place] [address] Jan, [facility] [address] [id number] [address] [place] [address], [place] [address] Jan, [facility] [address] [id number] [address] [place] [address], [place] [address] Jan, [facility] [address] [id number] [address] [place] [address], [place] [address] Jan, [facility] [address] [id number] [address] [place] [address], [place] [address] Jan, [facility] [address] [id number] [address] [place] [address], [place] [address] Jan, [facility] [address] [id number] [address] [place] [address], [place] [address] Jan, [facility] [address] [id number] [address] [place] [address], [place] [address] Jan, [facility] [address] [id number] [address] [place] [address], [place] [address] Jan, [facility] [address] [id number] [address] [place] [address], [place] [address] Jan, [facility] [address] [id number] [address] [place] [address], [place] [address] Dec, [facility] [address] [id number] [address] [place] [address], [place] [address] Nov, [facility] [address] [id number] [address] [place] [address], [place] [address] Nov, [facility] [address] [id number] [address] [place] [address], [place] [address] Nov, [facility] [address] [id number] [address] [place] [address], [place] [address] Nov, [facility] [address] [id number] [address] [place] [address], [place] [address] Nov, [facility] [address] [id number] [address] [place] [address], [place] [address] Nov, [facility] [address] [id number] [address] [place] [address], [place] [address] Nov, [facility] [address] [id number] [address] [place] [address], [place] [address] Nov, [facility] [address] [id number] [address] [place] [address], [place] [address] Nov, [facility] [address] [id number] [address] [place] [address], [place] [address] Nov, [facility] [address] [id number] [address] [place] [address], [place] [address] Nov, [facility] [address] [id number] [address] [place] [address], [place] [address] Nov, [facility] [address] [id number] [address] [place] [address], [place] [address] Nov, [facility] [address] [id number] [address] [place] [address], [place] [address] Oct, [facility] [address] [id number] [address] [place] [address], [place] [address] Oct, [facility] [address] [id number] [address] [place] [address], [place] [address] Oct, [facility] [address] [id number] [address] [place] [address], [place] [address] Sep, [facility] [address] [id number] [address] [place] [address], [place] [address] Sep, [facility] [address] [id number] [address] [place] [address], [place] [address] Sep, [facility] [address] [id number] [address] [place] [address], [place] [address] Sep, [facility] [address] [id number] [address] [place] [address], [place] [address] Aug, [facility] [address] [id number] [address] [place] [address], [place] [address] Aug, [facility] [address] [id number] [address] [place] [address], [place] [address] Jul, [facility] [address] [id number] [address] [place] [address], [place] [address] May, [facility] [address] [id number] [address] [place] [address], [place] [address] May, [facility] [address] [id number] [address] [place] [address], [place] [address] May, [facility] [address] [id number] [address] [place] [address], [place] [address] April, [facility] [address] [id number] [address] [place] [address], [place] [address] Mar, [facility] [address] [id number] [address] [place] [address], [place] [address] Mar, [facility] [address] [id number] [address] [place] [address], [place] [address] Mar, [facility] [address] [id number] [address] [place] [address], [place] [address] Jan, [facility] [address] [id number] [address] [place] [address] Jan, [facility] [address] [id number] [address] [place] [address], [place] [address] Jan, [facility] [address] [id number] [address] [place] [address], [place] [address] Dec, [facility] [address] [id number] [address] [place] [address], [place] [address] Dec, [facility] [address] [id number] [address] [place] [address], [place] [address] Dec, [facility] [address] [id number] [address] [place] [address], [place] [address] Dec, [facility] [address] [id number] [address] [place] [address], [place] [address] Nov, [facility] [address] [id number] [address] [place] [address], [place] [address] Nov, [facility] [address] [id number] [address] [place] [address], [place] [address] Nov, [facility] [address] [id number] [address] [place] [address], [place] [address] Oct, [facility] [address] [id number] [address] [place] [address], [place] [address] 31 Sep, 2011 [facility] [address] [id number] [address] [place] [address], [place] [address] 26 Sep, 2011 [facility] [address] [id number] [address] [place] [address], [place] [address] 13 Sep, 2011 [facility] [address] [id number] [address] [place] [address], [place] [address] 15 Nov, 2010 [facility] [address] [id number] [address] [place] [address], [place] [address] Oct, [facility] [address] [id number] [address] [place] [address], [place] [address] Oct, [facility] [address] [id number] [address] [place] [id number] 18 Oct, 2010 [facility] [address] [id number] [address] [place] [id number] 16 Oct, 2010 [facility] [address] [id number] [address] [place] [address] Sep, [facility] [address] [id number] [address] [place] [address] April, [facility] [address] [id number] [address] [place] [phone] Nov, [facility] [address] [id number] [address] [place] [address] Nov, [facility] [address] [id number] [address] [place] [address] Nov, [facility] [address] [id number] [address] [place] [phone] Nov, [facility] [address] [id number] [address] [place] [id number] Nov, [facility] [address] [id number] [address] [place] [address] Oct, [facility] [address] [id number] [address] [place] [id number] Oct, [facility] [address] [id number] [address] [place] [address] Sep, [facility] [address] [id number] [address] [place] [id number] Jan, IMMUNIZATIONS No Known Immunizations SOCIAL HISTORY [...] right hip replacement w/ Dr. Bruce 20 11 Surgical History triple bypass surgery 2003 Surgical History S/P left hip IM Nail (Intertrechanteric hip fx) 04/28/16 Surgical History egd 08/2019 Hospitalization History surgeries Hospitalization History Hypertension Hospitalization History ER for a concussion 11/24/15 Hospitalization History Intertrechanteric hip fx 04/27/16 Hospitalization History [facility] ([facility]ien t [facility] 2 times) Hx of 3 inpatient psych treatments in past in [place] oct 2016 [facility] 2016
--- OUTSIDE RECORDS SUMMARY | 2020-04-18 20:13 | XMS REPORT ---
Author Author Ave AGUIRRE Organization [facility] [place] Address [address] [place] [address] Care Team Providers Care Polymer Tester Name Role Phone WOLF AGUIRRE Unavailable PROBLEMS Type Condition ICD9-CM Code [id number] Code Onset Dates Condition S tatus SNOMED Code Problem Dysthymic disorder F34.1 Active 7 3596788 Problem Poor appetite R63.0 Active 013391 06 Problem Failure to thrive in adult R62.7 Act mishel 828134114 Problem Coarse tremors G25.2 Active 79891 004 Problem Iron deficiency anemia secondary to inadequate d ietary iron intake D50.8 Active 389022049 Problem Atherosclerotic heart diseas e of [place] 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 Active [id number] Problem Reactive depression F32.9 Active 67160279 Problem 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 Active 0607909 04 Problem Vascular dementia with behavior disturbance F01.51 Active 603372442623980 Problem Oropharyngeal dysphagia R13.12 Active 82030172 Problem Sundowning F05 Active 011379837 Problem Generalized anxiety disorder F41.1 A ctive 14669036 Problem Constipation, unspecified constipation type K59.00 Active 90975675 Problem Insomnia, unspecified type G47.00 Act mishel 179748587 Problem Essential hypertension I10 Active 42661236 Problem Slow transit constipation K59.01 Acti ve 12584465 Problem Other chronic pain G89.29 Active 8 4574940 Problem Irritable bowel syndrome with diarrhea K58.0 Active 646067440 Problem Severe episode of recurrent major depressive disorder, without psychotic features F33.2 Active 69553269 Problem 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 Active 1819 3002 Problem Mood disorder F39 Active 501975 05 Problem Obsessive thinking F42.8 Active 6 7269504 Problem Dementia in other diseases c lassified elsewhere with behavioral disturbance F02.81 Active 378543144 Problem Alzheimer''s disease with late onset G30.1 Active 862226259 Problem Dyspepsia K30 Active 293594947 Problem Primary insomnia F51.01 Active 397 2004 Problem Falling R29.6 Active 795103844 Problem Other chronic pain G89.29 Active 8 9548710 Problem Gastroesophageal reflux disease without esophagitis K21.9 Active 344349265 Problem Acute on chronic systolic congestive heart failure I50.23 Active 311077982 Problem Coronary artery disease invo lving [place] coronary artery of [place] heart without angina pectoris I25.10 Active 1641 674452001 Problem Restless legs G25.81 Active 939065 08 Problem HTN (hypertension) I10 Active 3 3138765 ALLERGIES No Information ENCOUNTERS Encounter Location Date Diagnosis [facility] [place] [address] [id number] [address] [place] [phone] 16 Mar, 2020 [facility] [place] [address] [place] [phone] 15 Mar, 2020 Nausea R11.0 [facility] [place] [address] [phone] 10 Mar, 2020 [facility] [place] [address] [id number] [address] [place] [phone] 09 Mar, 2020 Falling R29.6 [facility] [place] [address] [facility] [id number] [address] [place] [phone] 08 Mar, 2020 [facility] [place] [address] [id number] [address] [place] [phone] 07 Mar, 2020 Generalized anxiety disorder F41.1 [facility] [place] [address] [id number] [address] [place] [phone] 02 Mar, 2020 [facility] [place] [address] [id number] [address] [place] [phone] Jan, [facility] [address] [place] [id number] Jan, Generalized anxiety disorder F41.1 and Pressure sore on ankle, right, unstageable L89.510 [facility] [place] [address] [id number] [address] [place] [phone] Jan, [facility] [place] [address] [id number] [address] [place] [id number] Jan, [facility] [place] [address] [id number] [address] [place] [phone] Jan, Weakness R53.1 [facility] [place] [address] [facility] [id number] [address] [place] [phone] Jan, [facility] [place] [address] [facility] [id number] [address] [place] [phone] Jan, Generalized anxiety disorder F41.1 [facility] [place] [address] [id number] [address] [place] [phone] 08 Jan, 2020 Nausea R11.0 [facility] [place] [address] [facility] [id number] [address] [place] [phone] 03 Jan, 2020 Dyspepsia K30 [facility] [place] [address] [facility] [id number] [address] [place] [phone] Jan, [facility] [place] [address] [facility] [id number] [address] [place] [phone] Jan, [facility] [place] [address] [facility] [id number] [address] [place] [phone] Jan, [facility] [place] [address] [facility] [id number] [address] [place] [phone] Jan, [facility] [place] [address] [facility] [id number] [address] [place] [phone] Jan, [facility] [address] [id number] Jan, Generalized anxiety disorder F41.1 [facility] [place] [address] [facility] [id number] [address] [place] [phone] 18 Jan, 2020 [facility] [address] [id number] 13 Jan, 2020 Coronary artery disease involving [place] coronary artery of [place] heart without angina pectoris I25.10 [facility] [place] [address] [id number] [address] [place] [phone] Jan, [facility] [place] [address] [facility] [id number] [address] [place] [phone] Dec, Atherosclerotic heart diseas e of [place] 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 [facility] [place] [address] [facility] [id number] [address] [place] [phone] Dec, [facility] [address] [place] [id number] Dec, Mood disorder F39 ; Acute on chronic systolic congestive heart failure I50.23 ; Obsessive thinking F42.8 and HTN (hypertension) I10 [facility] [address] [place] [id number] Nov, Cough R05 [facility] [place] [address] [id number] [address] [place] [phone] Nov, [facility] [place] [address] [id number] [address] [place] [phone] Oct, [facility] [address] [place] [id number] Oct, Obsessive thinking F42.8 ; Generalized anxiety disorder F41.1 ; Primary insomnia F51.01 and Restless legs G25.81 [facility] [place] [address] [facility] [id number] [address] [place] [phone] Sep, [facility] [address] [place] [id number] Aug, Coronary artery disease involving [place] coronary artery of [place] heart without angina pectoris I25.10 [facility] [place] [address] [facility] [id number] [address] [place] [phone] Jul, [facility] [place] [address] [facility] [id number] [address] [place] [phone] Jul, [facility] [place] [address] [facility] [id number] [address] [place] [phone] Jul, [facility] [place] [address] [facility] [id number] [address] [place] [phone] Jul, [facility] [place] [address] [id number] [address] [place] [phone] Jul, [facility] [address] [place] [id number] Jun, Acute on chronic systolic congestive heart failure I50.23 and Atherosclerotic heart disease of [place] 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 [facility] [place] [address] [id number] [address] [place] [phone] Jun, [facility] [place] [address] [id number] [address] [place] [phone] Jun, [facility] [place] [address] [id number] [address] [place] [phone] Jun, [facility] [place] [address] [id number] [address] [place] [phone] Jun, [facility] [place] [address] [id number] [address] [place] [phone] Jun, [facility] [place] [address] [id number] [address] [place] [phone] Jun, [facility] [place] [address] [id number] [address] [place] [address] Jun, [facility] [address] [id number] May, Pressure injury of right ankle, stage 2 L89.512 and Constipation, unspecified constipation type K59.00 [facility] [place] [address] [id number] [address] [place] [phone] May, [facility] [address] [id number] April, Constipation, unspecified constipation type K59.00 ; Pressure injury of right ankle, stage 1 L89.511 and Vascular dementia with behavior disturbance F01.51 [facility] [place] [address] [id number] [address] [place] [phone] Mar, [facility] [place] [address] [id number] [address] [place] [phone] Mar, [facility] [place] [address] [id number] [address] [place] [phone] Mar, [facility] [place] [address] [id number] [address] [place] [phone] Mar, [facility] [place] [address] [id number] [address] [place] [phone] Jan, [facility] [place] [address] [id number] [address] [place] [phone] Jan, [facility] [place] [address] [id number] [address] [place] [phone] Jan, [facility] [address] [id number] Jan, Pneumonia due to infectious organism, unspecified laterality, unspecified part of lung J18.9 ; Fall from bed, sequela W06.XXXS ; Hyponatremia E87.1 and Slow transit constipation K59.01 [facility] [place] [address] [id number] [address] [place] [phone] Jan, [facility] [place] [address] [facility] [id number] [address] [place] [phone] Jan, [facility] [place] [address] [facility] [id number] [address] [place] [phone] Jan, [facility] [place] [address] [facility] [id number] [address] [place] [phone] Dec, [facility] [address] [id number] Dec, Other depression F32.89 ; Alzheimer''s disease with late onset G30.1 and Dementia in other diseases classified elsewhere with behavioral disturbance F02.81 [facility] [place] [address] [facility] [id number] [address] [place] [phone] Dec, [facility] [address] [id number] Dec, [facility] [address] [place] [id number] Nov, Generalized anxiety disorder F41.1 and Obsessive thinking F42.8 [facility] [place] [address] [id number] [address] [place] [phone] Nov, [facility] [place] [address] [id number] [address] [place] [phone] Oct, [facility] [place] [address] [id number] [address] [place] [phone] Oct, [facility] [place] [address] [id number] [address] [place] [phone] Oct, [facility] [place] [address] [id number] [address] [place] [phone] Oct, [facility] [place] [address] [facility] [id number] [address] [place] [phone] Oct, [facility] [address] [place] [id number] Oct, Generalized anxiety disorder F41.1 and Obsessive thinking F42.8 [facility] [place] [address] [facility] [id number] [address] [place] [phone] Sep, [facility] [place] [address] [facility] [id number] [address] [place] [phone] Sep, [facility] [place] [address] [id number] [address] [place] [phone] Sep, [facility] [place] [address] [facility] [id number] [address] [place] [phone] Sep, [facility] [address] [id number] Sep, Generalized anxiety disorder F41.1 ; Obsessive thinking F42.8 and Mood disorder F39 [facility] [place] [address] [id number] [address] [place] [phone] Sep, [facility] [place] [address] [id number] [address] [place] [phone] Sep, [facility] [address] [id number] Sep, [facility] [place] [address] [id number] [address] [place] [address] Sep, [facility] [place] [address] [facility] [id number] [address] [place] [phone] Sep, [facility] [address] [id number] Sep, Obsessive thinking F42.8 [facility] [place] [address] [id number] [address] [place] [phone] Sep, [facility] [place] [address] [id number] [address] [place] [phone] Sep, [facility] [place] [address] [id number] [address] [place] [phone] Aug, [facility] [place] [address] [id number] [address] [place] [phone] Aug, [facility] [place] [address] [facility] [id number] [address] [place] [phone] Aug, Positive urine drug screen R 82.5 [facility] [address] [id number] Aug, [facility] [place] [address] [id number] [address] [place] [phone] Aug, [facility] [address] [id number] [address] [place] [address] Aug, [facility] [place] [address] [id number] [address] [place] [phone] 17 Aug, 2018 Irritable bowel syndrome wit h diarrhea K58.0 [facility] [place] [address] [id number] [address] [place] [phone] Aug, [facility] [place] [address] [id number] [address] [place] [address] 13 Aug, 2018 Obsessive thinking F42.8 ; I nsomnia, unspecified type G47.00 and Other chronic pain G89.29 [facility] [address] [place] [id number] Aug, Obsessive thinking F42.8 ; Irritable bowel syndrome with diarrhea K58.0 ; Pain in right foot M79.671 ; Pain of left foot M79.672 and Gastroesophageal reflux disease without esophagitis K21.9 [place] [id number] [place] [address] Aug, [facility] [place] [address] [id number] [address] [place] [address] Jul, [facility] [place] [address] [id number] [address] [place] [address] Jun, [place] [id number] [place] [phone] Jun, [facility] [address] [id number] Jun, Left lower quadrant pain R10.32 and Left leg pain M79.605 [place] [address] [id number] [address] [place] [address] Jun, [facility] [address] [place] [id number] Jun, Pain in left hip M25.552 ; Pain in right hip M25.551 and Primary insomnia F51.01 [place] [address] [id number] [address] [place] [address] Jun, [facility] [address] [place] [id number] May, [place] [address] [id number] [address] [place] [address] May, [place] [id number] [place] [phone] May, [facility] [address] [place] [id number] May, Mood disorder F39 [facility] [place] [address] [facility] [id number] [address] [place] [phone] May, [facility] [place] [address] [facility] [id number] [address] [place] [address] April, [facility] [address] [place] [id number] April, Generalized anxiety disorder F41.1 ; Obsessive thinking F42.8 and Insomnia, unspecified type G47.00 [facility] [place] [address] [id number] [address] [place] [address] April, [facility] [place] [address] [id number] [address] [place] [address] April, Rash of face R21 [facility] [place] [address] [id number] [address] [place] [address] Mar, [facility] [place] [address] [id number] [address] [place] [address] Mar, [facility] [place] [address] [facility] [id number] [address] [place] [phone] Mar, [facility] [place] [address] [id number] [address] [place] [phone] Jan, [facility] [place] [address] [id number] [address] [place] [address] Jan, [facility] [address] [place] [id number] Jan, Constipation, unspecified constipation type K59.00 and Other chronic pain G89.29 [facility] [place] [address] [facility] [id number] [address] [place] [phone] Jan, [facility] [address] [place] [id number] Jan, Obsessive thinking F42.8 and Coarse tremors G25.2 [facility] [address] [place] [address] [id number] [place] [id number] Jan, [facility] [address] [id number] [place] [id number] Jan, [facility] [address] [place] [id number] Jan, Generalized anxiety disorder F41.1 ; Obsessive thinking F42.8 ; Callus of foot L84 and 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 [facility] [place] [address] [id number] [address] [place] [address] Dec, Generalized anxiety disorder F41.1 and Severe episode of recurrent major depressive disorder, without psychotic features F33.2 [place] [address] [id number] [address] [place] [address] Nov, [place] [address] [id number] [address] [place] [phone] Nov, [facility] [address] [place] [id number] Nov, Oropharyngeal dysphagia R13.12 ; Generalized anxiety disorder F41.1 and 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 [facility] [place] [address] [facility] [id number] [address] [place] [phone] Nov, [facility] [address] [place] [id number] [facility] [place] [id number] Nov, [facility] [place], [facility] [address] [facility] [id number] [address] [place] [phone] Nov, [facility] [place], [facility] [address] [facility] [id number] [address] [place] [phone] Nov, [facility] [place], [facility] [address] [facility] [id number] [address] [place] [phone] Oct, Constipation, unspecified co nstipation type K59.00 and Mood disorder F39 [facility] [place], [facility] [address] [facility] [id number] [address] [place] [phone] Oct, [facility] [address] [place] [id number] [facility] [place] [id number] Sep, [facility] [address] [place] [id number] [place] [id number] Sep, [facility] [address] [id number] JIME[place] [id number] Sep, [facility] [address] [id number] JIMENA [place] [id number] Sep, [facility] [address] [id number] Sep, Generalized abdominal pain R10.84 [facility] [place] [address] [facility] [id number] [address] [place] [phone] Sep, [facility] [address] [id number] JIMENA [place] [id number] Sep, Generalized anxiety disorder F41.1 and P rimary insomnia F51.01 [facility] [address] [id number] JIMENA [place] [id number] Aug, [facility] [address] [id number] [place]IME[place] [id number] Aug, Generalized anxiety disorder F41.1 [facility] [place] [address] [facility] [id number] [address] [place] [phone] Jul, [facility] [address] [id number] Jul, Obsessive thinking F42.8 [facility] [place] [address] [facility] [id number] [address] [place] [phone] Jul, Generalized anxiety disorder F41.1 and Irritable bowel syndrome with diarrhea K58.0 [facility] [address] [id number] [place]IME[place] [id number] Jul, Generalized anxiety disorder F41.1 [facility] [address] [id number] [place]IME[place] [id number] Jun, Generalized anxiety disorder F41.1 [facility] [place] [address] [facility] [id number] [address] [place] [phone] May, [facility] [address] [id number] May, Generalized anxiety disorder F41.1 ; Irritable bowel syndrome with diarrhea K58.0 and Coarse tremors G25.2 [facility] [place] [address] [id number] [address] [place] [phone] April, [facility] [place] [address] [id number] [address] [place] [phone] April, [facility] [place] [address] [id number] [address] [place] [phone] April, [facility] [place] [address] [id number] [address] [place] [address] Mar, [facility] [address] [id number] Mar, Severe episode of recurrent major depressive disorder, without psychotic features F33.2 and Pain in left hip M25.552 [facility] [place] [address] [id number] [address] [place] [phone] Mar, [facility] [place] [address] [id number] [address] [place] [phone] Mar, [facility] [place] [address] [id number] [address] [place] [phone] Mar, [facility] [place] [address] [id number] [address] [place] [address] Mar, Pain in right hip M25.551 an d Self-care deficit in patient living alone R46.89 [facility] [address] [id number] [address] [place] [address] Jan, Other chronic pain G89.29 ; Pain in left hip M25.552 and Slow transit constipation K59.01 [facility] [place] [address] [id number] [address] [place] [phone] Jan, [facility] [place] [address] [id number] [address] [place] [address] Dec, Other depression F32.89 ; Co nstipation, unspecified constipation type K59.00 and Insomnia, unspecified type G47.00 [facility] [facility] [id number] [place] [address] Nov, Reactive depression F32.9 ; Chronic idiopathic constipation K59.04 ; Generalized anxiety disorder F41.1 ; Coarse tremors G25.2 ; Gastroesophageal reflux disease without esophagitis K21.9 ; Dysthymic disorder F34.1 ; Vitamin deficiency, unspecified E56.9 and Primary insomnia F51.01 [place] [address] [address] Nov, [place] [address] [address] Nov, [place] [address] [address] Nov, [place] [address] [address] Nov, Reactive depression F32.9 ; Essential hypertension I10 ; Generalized anxiety disorder F41.1 ; Atherosclerotic heart disease of [place] 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 ; Pain in right hip M25.551 ; Other chronic pain G89.29 ; Chronic idiopathic constipation K59.04 ; Primary insomnia F51.01 ; Coarse tremors G25.2 ; Gastroesophageal reflux disease without esophagitis K21.9 ; Iron deficiency anemia secondary to inadequate dietary iron intake D50.8 and Vitamin deficiency, unspecified E56.9 [place] [id number] [place] [phone] Oct, [place] [address] [place] [id number] [place] [phone] Oct, [place] [address] [id number] [place] [phone] Oct, [place] [address] [id number] 16 Oct, 2016 Generalized anxiety disorder F41.1 ; Poor appetite R63.0 ; Dehydration E86.0 and Failure to thrive in adult R62.7 [facility] [place] [address] [facility] [id number] [address] [place] [phone] 07 Oct, 2016 Generalized anxiety disorder F41.1 and Failure to thrive in adult R62.7 [facility] [place] [address] [id number] [address] [place] [phone] 03 Oct, 2016 [facility] [place] [address] [facility] [id number] [address] [place] [phone] Oct, [facility] [address] [id number] [place] [phone] Sep, Vaginal discharge N89.8 and Acute cystitis with hematuria N30.01 [facility] [place] [address] [id number] [address] [place] [phone] Sep, [facility] [place] [address] [id number] [address] [place] [phone] Sep, [facility] [place] [address] [address] Sep, Dysthymic disorder F34.1 ; A cute vaginitis N76.0 ; Dysuria R30.0 and Vaginal yeast infection B37.3 [facility] [place] [address] [place] [place] [id number] [address] [place] [phone] Aug, [facility] [place] [address] [id number] [address] [place] [phone] Aug, [facility] [address] [facility] [id number] [address] [place] [phone] Aug, Foul smelling urine R82.90 ; Rapid heart rate R00.0 and Flatulence R14.3 [facility] [place] [address] [id number] [address] [place] [phone] Aug, [facility] [place] [address] [id number] [address] [place] [address] Jul, Constipation, unspecified co nstipation type K59.00 ; Weak R53.1 ; Poor appetite R63.0 ; Coronary artery disease involving [place] heart without angina pectoris, unspecified vessel or lesion type I25.10 ; Fatigue, unspecified type R53.83 ; Urinary incontinence, unspecified type R32 and Insomnia, unspecified type G47.00 [place] [id number] [facility] [id number] [address] [place] [phone] Jul, [place] [address] [place] [id number] [address] [place] [phone] Jun, Dysuria R30.0 [place] [address] [place] [id number] [place] [phone] Jun, [place] [address] [place] [id number] [place] [address] Jun, Urinary tract infection, sit e not specified N39.0 ; Acute vaginitis N76.0 and Diarrhea, unspecified type R19.7 [place] [address] [place] [id number] [place] [address] May, [place] [address] [address] April, [facility] [address] [id number] [address] [place] [phone] April, Encounter for dental examina tion Z01.20 [facility] [place] [address] [place] [id number] [address] [place] [address] April, [place] [address] [address] April, Tremor R25.1 and Episodic te nsion-type headache, not intractable G44.219 [facility] [place] [address] [id number] [address] [place] [address] Mar, [facility] [place] [address] [place] [id number] [place] [address] [place] [address] 15 Jan, 2016 Mood disorder F39 [facility] [address] [id number] [address] [place] [address] Jan, [facility] [place] [address] [id number] [address] [place] [phone] Jan, [facility] [place] [address] [id number] [address] [place] [phone] Jan, [facility] [place] [address] [id number] [address] [place] [phone] Jan, [facility] [place] [address] [id number] [address] [place] [phone] Jan, [facility] [place] [address] [facility] [id number] [address] [place] [phone] Jan, [facility] [address] [facility] [id number] [address] [place] [address] Dec, Acute diarrhea R19.7 [facility] [place] [address] [id number] [address] [place] [phone] Dec, [facility] [place] [address] [facility] [id number] [address] [place] [phone] Dec, [facility] [place] [address] [facility] [id number] [address] [place] [phone] Dec, [facility] [address] [id number] [address] [place] [phone] Dec, N&V (nausea and vomiting) R1 1.2 [facility] [place] [address] [id number] [address] [place] [phone] Dec, Generalized anxiety disorder F41.1 [facility] [place] [address] [facility] [id number] [address] [place] [phone] Dec, Generalized anxiety disorder F41.1 [facility] [place] [address] [facility] [id number] [address] [place] [phone] Nov, Post concussion syndrome F07 .81 [facility] [place] [address] [facility] [id number] [address] [place] [phone] Nov, Generalized anxiety disorder F41.1 [facility] [place] [address] [facility] [id number] [address] [place] [phone] Nov, [facility] [place] [address] [facility] [id number] [address] [place] [phone] Nov, Generalized anxiety disorder F41.1 [facility] [address] [id number] [address] [place] [id number] Oct, Dental caries K02.9 [facility] [place] [address] [facility] [id number] [place] [phone] Oct, [facility] [address] [facility] [id number] [address] [place] [id number] Oct, Dental examination Z01.20 [facility] [id number] [place] [id number] Oct, Encounter for dental examina tion Z01.20 [facility] [place] [address] [address] Oct, CAD (coronary artery disease ) I25.10 [facility] [place] [address] [place] [id number] [address] [place] [phone] Sep, Generalized anxiety disorder F41.1 [facility] [place] [address] [facility] [id number] [address] [place] [phone] Sep, [facility] [place] [address] [facility] [id number] [address] [place] [phone] Sep, Rash and other nonspecific s kin eruption R21 and Yeast vaginitis B37.3 [facility] [place] [address] [facility] [id number] [address] [place] [phone] Sep, Generalized anxiety disorder F41.1 [facility] [place] [address] [facility] [id number] [address] [place] [phone] Aug, Insect bites 919.4 and Hemor rhoids 455.6 [facility] [place] [address] [address] Aug, Generalized anxiety disorder 300.02 [facility] [place] [address] [phone] Aug, [facility] [place] [address] [phone] Aug, [facility] [place] [address] [address] Aug, Generalized anxiety disorder 300.02 ; No condition on Rodman II V71.09 ; Heart problem 429.9 and Hypertension 401.9 [facility] [place] [address] [address] Aug, [facility] [place] [address] [address] Jul, [facility] [place] [address] [id number] Jul, [facility] [place] [address] [id number] Jul, [facility] [place] [address] [address] Jul, [facility] [place] [address] [address] Jul, Rash 782.1 [facility] [place] [address] [address] Jul, UTI (urinary tract infection ) 599.0 [facility] [place] [address] [address] Jul, [facility] [place] [address] [place] [id number] [address] [place] [address] Jun, Dysthymia 300.4 and Anxiety 300.00 [facility] [place] [address] [id number] [address] [place] [phone] Jun, 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 [facility] [place] [address] [id number] [address] [place] [phone] May, [facility] [place] [address] [id number] [address] [place] [phone] May, [facility] [place] [address] [id number] [address] [place] [address] May, Unspecified breast screening V76.10 [facility] [address] [id number] [address] [place] [id number] May, Dental examination V72.2 [facility] [place] [address] [id number] [address] [place] [phone] April, [facility] [place] [address] [id number] [address] [place] [phone] April, [facility] [address] [id number] [address] [place] [address] [id number] April, Dental examination V72.2 [facility] [address] [id number] [address] [place] [address] [id number] April, Dental examination V72.2 [facility] [place] [address] [id number] [address] [place] [phone] Mar, [facility] [place] [address] [id number] [address] [place] [phone] Mar, [facility] [place] [address] [id number] [address] [place] [phone] Jan, [facility] [place] [address] [id number] [address] [place] [phone] Jan, [facility] [place] [address] [id number] [address] [place] [phone] Jan, [facility] [place] [address] [id number] [address] [place] [phone] Jan, [facility] [address] [id number] [facility] [place] [address] 16 Jan, 2015 [facility] [address] [id number] [address] [place] [address], [place] [address] 16 Jan, 2015 [facility] [address] [id number] [address] [place] [address], [place] [address] 13 Jan, 2015 [facility] [address] [id number] [address] [place] [address], [place] [address] 13 Jan, 2015 [facility] [address] [id number] [address] [place] [address], [place] [address] 11 Jan, 2015 [facility] [address] [id number] [address] [place] [address], [place] [address] Jan, [facility] [address] [id number] [address] [place] [address], [place] [address] Jan, [facility] [address] [id number] [address] [place] [address], [place] [address] Jan, [facility] [address] [id number] [address] [place] [address], [place] [address] Jan, [facility] [address] [id number] [address] [place] [address], [place] [address] Jan, [facility] [address] [id number] [address] [place] [address], [place] [address] Jan, 2014 [facility] [address] [id number] [address] [place] [address], [place] [address] Jan, 2014 [facility] [address] [id number] [address] [place] [address], [place] [address] Jan, 2014 [facility] [address] [id number] [address] [place] [address], [place] [address] Jan, 2014 [facility] [address] [id number] [address] [place] [address], [place] [address] Jan, 2014 [facility] [address] [id number] [address] [place] [address], [place] [address] Jan, 2014 [facility] [address] [id number] [address] [place] [address], [place] [address] Jan, [facility] [address] [id number] [address] [place] [address], [place] [address] Jan, [facility] [address] [id number] [address] [place] [address], [place] [address] Dec, [facility] [address] [id number] [address] [place] [address], [place] [address] Dec, [facility] [address] [id number] [address] [place] [address], [place] [address] Dec, [facility] [address] [id number] [address] [place] [address], [place] [id number] Dec, [facility] [address] [id number] [address] [place] [address], [place] [address] Nov, [facility] [address] [id number] [address] [place] [address], [place] [address] Nov, [facility] [address] [id number] [address] [place] [address], [place] [address] Nov, [facility] [address] [id number] [address] [place] [address], [place] [address] Nov, [facility] [address] [id number] [address] [place] [address], [place] [id number] Nov, [facility] [address] [id number] [address] [place] [address], [place] [address] Nov, [facility] [address] [id number] [address] [place] [address], [place] [id number] Nov, [facility] [address] [id number] [address] [place] [address], [place] [id number] Oct, [facility] [address] [id number] [address] [place] [address], [place] [address] Oct, [facility] [address] [id number] [address] [place] [address], [place] [id number] Oct, [facility] [address] [id number] [address] [place] [address], [place] [address] Oct, [facility] [address] [id number] [address] [place] [address], [place] [address] Oct, [facility] [address] [id number] [address] [place] [address], [place] [address] Oct, [facility] [address] [id number] [address] [place] [address], [place] [address] Oct, [facility] [address] [id number] [address] [place] [address], [place] [address] Oct, [facility] [address] [id number] [address] [place] [address], [place] [address] Oct, [facility] [address] [id number] [address] [place] [address], [place] [address] Oct, [facility] [address] [id number] [address] [place] [address], [place] [address] Oct, [facility] [address] [id number] [address] [place] [address], [place] [address] Oct, [facility] [address] [id number] [address] [place] [address], [place] [address] Sep, [facility] [address] [id number] [address] [place] [address], [place] [address] Sep, [facility] [address] [id number] [address] [place] [address], [place] [id number] Sep, [facility] [address] [id number] [address] [place] [address], [place] [address] Sep, [facility] [address] [id number] [address] [place] [address], [place] [id number] Jul, [facility] [facility] [address] [id number] [address] [place] [address] [place] [address] Jul, [facility] [address] [id number] [address] [place] [address], [place] [address] Jul, [facility] [address] [id number] [address] [place] [address], [place] [address] Jul, [facility] [address] [id number] [address] [place] [address], [place] [address] Jun, [facility] [address] [id number] [address] [place] [address], [place] [address] Jun, [facility] [address] [id number] [address] [place] [address], [place] [address] Jun, [facility] [address] [id number] [address] [place] [address], [place] [address] Jun, [facility] [address] [id number] [address] [place] [address], [place] [address] May, [facility] [address] [id number] [address] [place] [address], [place] [address] May, [facility] [address] [id number] [address] [place] [address], [place] [address] April, [facility] [address] [id number] [address] [place] [address], [place] [address] April, [facility] [address] [id number] [address] [place] [address], [place] [address] April, [facility] [address] [id number] [address] [place] [address], [place] [address] April, [facility] [address] [id number] [address] [place] [address], [place] [address] April, [facility] [address] [id number] [address] [place] [address], [place] [address] April, [facility] [address] [id number] [address] [place] [address], [place] [address] April, [facility] [address] [id number] [facility] [place] [address] April, [facility] [address] [id number] [address] [place] [address], [place] [address] April, [facility] [address] [id number] [address] [place] [address], [place] [address] Mar, [facility] [address] [id number] [address] [place] [address], [place] [address] Mar, [facility] [address] [id number] [address] [place] [address], [place] [address] Mar, [facility] [address] [id number] [address] [place] [address], [place] [address] Mar, [facility] [address] [id number] [address] [place] [address], [place] [address] Jan, [facility] [address] [id number] [address] [place] [address], [place] [address] Jan, [facility] [address] [id number] [address] [place] [address], [place] [address] Jan, [facility] [address] [id number] [address] [place] [address], [place] [address] Jan, [facility] [address] [id number] [address] [place] [address], [place] [address] Jan, [facility] [address] [id number] [address] [place] [address], [place] [address] Jan, [facility] [address] [id number] [address] [place] [address], [place] [address] Jan, [facility] [address] [id number] [address] [place] [address], [place] [address] Jan, [facility] [address] [id number] [address] [place] [address], [place] [address] Jan, [facility] [address] [id number] [address] [place] [address], [place] [address] Jan, [facility] [address] [id number] [address] [place] [address], [place] [address] Jan, [facility] [address] [id number] [address] [place] [address], [place] [address] Jan, [facility] [address] [id number] [address] [place] [address], [place] [address] Dec, [facility] [address] [id number] [address] [place] [address], [place] [address] Dec, [facility] [address] [id number] [address] [place] [address], [place] [address] Dec, [facility] [address] [id number] [address] [place] [address], [place] [address] Dec, [facility] [address] [id number] [address] [place] [address], [place] [address] Nov, [facility] [address] [id number] [address] [place] [address], [place] [address] Nov, [facility] [address] [id number] [address] [place] [address], [place] [address] Nov, [facility] [address] [id number] [address] [place] [address], [place] [address] Nov, [facility] [address] [id number] [address] [place] [address], [place] [address] Oct, [facility] [address] [id number] [address] [place] [address], [place] [address] Oct, [facility] [address] [id number] [address] [place] [address], [place] [address] Sep, [facility] [address] [id number] [address] [place] [address], [place] [address] Sep, [facility] [address] [id number] [address] [place] [address], [place] [address] Jul, [facility] [address] [id number] [address] [place] [address], [place] [address] Jul, [facility] [address] [id number] [address] [place] [address], [place] [address] Jun, [facility] [address] [id number] [address] [place] [address], [place] [address] Jun, [facility] [address] [id number] [address] [place] [address], [place] [address] Jun, [facility] [address] [id number] [address] [place] [address], [place] [address] May, [facility] [address] [id number] [address] [place] [address], [place] [address] May, [facility] [address] [id number] [address] [place] [address], [place] [address] May, [facility] [address] [id number] [address] [place] [address], [place] [address] May, [facility] [address] [id number] [address] [place] [address], [place] [address] May, [facility] [address] [id number] [address] [place] [address], [place] [address] April, [facility] [address] [id number] [address] [place] [address], [place] [address] April, [facility] [address] [id number] [address] [place] [address], [place] [address] April, [facility] [address] [id number] [address] [place] [address], [place] [address] April, [facility] [address] [id number] [address] [place] [address], [place] [address] April, [facility] [address] [id number] [address] [place] [address], [place] [address] April, [facility] [address] [id number] [address] [place] [address], [place] [address] Mar, [facility] [address] [id number] [address] [place] [address], [place] [address] 15 Mar, 2013 [facility] [address] [id number] [address] [place] [address], [place] [address] Jan, [facility] [address] [id number] [address] [place] [address], [place] [address] Jan, [facility] [address] [id number] [address] [place] [address], [place] [address] Jan, [facility] [address] [id number] [address] [place] [address], [place] [address] Jan, [facility] [address] [id number] [address] [place] [address], [place] [address] Jan, [facility] [address] [id number] [address] [place] [address], [place] [address] Jan, [facility] [address] [id number] [address] [place] [address], [place] [address] 05 Jan, 2013 [facility] [address] [id number] [address] [place] [address], [place] [address] Jan, [facility] [address] [id number] [address] [place] [address], [place] [address] Jan, [facility] [address] [id number] [address] [place] [address], [place] [address] Jan, [facility] [address] [id number] [address] [place] [address], [place] [address] Jan, [facility] [address] [id number] [address] [place] [address], [place] [address] Dec, [facility] [address] [id number] [address] [place] [address], [place] [address] Nov, [facility] [address] [id number] [address] [place] [address], [place] [address] Nov, [facility] [address] [id number] [address] [place] [address], [place] [address] 26 Nov, 2012 [facility] [address] [id number] [address] [place] [address], [place] [address] Nov, [facility] [address] [id number] [address] [place] [address], [place] [address] Nov, [facility] [address] [id number] [address] [place] [address], [place] [address] Nov, [facility] [address] [id number] [address] [place] [address], [place] [address] Nov, [facility] [address] [id number] [address] [place] [address], [place] [address] Nov, [facility] [address] [id number] [address] [place] [address], [place] [address] Nov, [facility] [address] [id number] [address] [place] [address], [place] [address] Nov, [facility] [address] [id number] [address] [place] [address], [place] [address] 18 Nov, 2012 [facility] [address] [id number] [address] [place] [address], [place] [address] Nov, [facility] [address] [id number] [address] [place] [address], [place] [address] Nov, [facility] [address] [id number] [address] [place] [address], [place] [address] Oct, [facility] [address] [id number] [address] [place] [address], [place] [address] Oct, [facility] [address] [id number] [address] [place] [address], [place] [address] Oct, [facility] [address] [id number] [address] [place] [address], [place] [address] Sep, [facility] [address] [id number] [address] [place] [address], [place] [address] Sep, [facility] [address] [id number] [address] [place] [address], [place] [address] 10 Sep, 2012 [facility] [address] [id number] [address] [place] [address], [place] [address] 10 Sep, 2012 [facility] [address] [id number] [address] [place] [address], [place] [address] 27 Aug, 2012 [facility] [address] [id number] [address] [place] [address], [place] [address] 20 Aug, 2012 [facility] [address] [id number] [address] [place] [address], [place] [address] 24 Jul, 2012 [facility] [address] [id number] [address] [place] [address], [place] [address] 27 May, 2012 [facility] [address] [id number] [address] [place] [address], [place] [address] 14 May, 2012 [facility] [address] [id number] [address] [place] [address], [place] [address] 14 May, 2012 [facility] [address] [id number] [address] [place] [address], [place] [address] April, [facility] [address] [id number] [address] [place] [address], [place] [address] Mar, [facility] [address] [id number] [address] [place] [address], [place] [address] Mar, [facility] [address] [id number] [address] [place] [address], [place] [address] 03 Mar, 2012 [facility] [address] [id number] [address] [place] [address], [place] [address] Jan, [facility] [address] [id number] [address] [place] [address], [place] [address] Jan, [facility] [address] [id number] [address] [place] [address], [place] [address] Jan, [facility] [address] [id number] [address] [place] [id number] Dec, [facility] [address] [id number] [address] [place] [address], [place] [address] Dec, [facility] [address] [id number] [address] [place] [phone] Dec, [facility] [address] [id number] [address] [place] [address], [place] [address] Dec, [facility] [address] [id number] [address] [place] [address], [place] [address] Nov, [facility] [address] [id number] [address] [place] [address], [place] [address] 15 Nov, 2011 [facility] [address] [id number] [address] [place] [address], [place] [address] Nov, [facility] [address] [id number] [address] [place] [phone] Oct, [facility] [address] [id number] [address] [place] [address], [place] [address] 31 Sep, 2011 [facility] [address] [id number] [address] [place] [address], [place] [address] 26 Sep, 2011 [facility] [address] [id number] [address] [place] [address] 13 Sep, 2011 [facility] [address] [id number] [address] [place] [address], [place] [address] 15 Nov, 2010 [facility] [address] [id number] [address] [place] [id number] 23 Oct, 2010 [facility] [address] [id number] [address] [place] [address], [place] [address] 19 Oct, 2010 [facility] [address] [id number] [address] [place] [address], [place] [address] 18 Oct, 2010 [facility] [address] [id number] [address] [place] [address], [place] [address] 16 Oct, 2010 [facility] [place] [address] [id number] [address] [place] [phone] Sep, [facility] [place] [address] [id number] [address] [place] [id number] April, [facility] [place] [address] [id number] [address] [place] [id number] Nov, [facility] [place] [address] [id number] [address] [place] [address] Nov, [facility] [place] [address] [id number] [address] [place] [phone] Nov, [facility] [place] [address] [id number] [address] [place] [phone] Nov, [facility] [place] [address] [id number] [address] [place] [id number] Nov, [facility] [place] [address] [id number] [address] [place] [phone] Oct, [facility] [place] [address] [id number] [address] [place] [phone] Oct, [facility] [place] [address] [id number] [address] [place] [phone] Sep, [facility] [place] [address] [id number] [address] [place] [phone] Jan, IMMUNIZATIONS No Known Immunizations SOCIAL HISTORY Never Assessed REASON FOR VISIT PLAN OF CARE VITAL SIGNS Height 64 in 2015-01-03 Weight 131 lbs 2015-01-03 Temperature 98.4 degrees Fahrenheit 2015-01-03 Heart Rate 60 bpm 2015-01-03 Respiratory Rate 20 2015-01-03 Blood pressure systolic 122 mmHg 2015-01-03 Blood pressure diastolic 64 mmHg 2015-01-03 MEDICATIONS Unknown Medications RESULTS No Results PROCEDURES No Known procedures INSTRUCTIONS MEDICATIONS ADMINISTERED No Known Medications MEDICAL (GENERAL) HISTORY Type Description Date Medical History Hypertension Medical History Heart disease CABG X3 Stress test 5 Medical History Gastric ulcer Medical History Hyperlipidemia Medical History Headache syndrome Medical History Psychiatric disorders-depression/racing thoughts Medical History Depression Medical History At [facility] 04/2016 Started on Eliquis [...] History Intertrechanteric hip fx 04/27/16 Hospitalization History [facility] ([facility]patien t [facility] 2 times) Hx of 3 inpatient psych treatments [facility] past in [place] oct 2016 [facility] 2016
--- OUTSIDE RECORDS SUMMARY | 2020-04-18 20:13 | XMS REPORT ---
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 Active [id number] Problem Reactive depression F32.9 Active 16552070 Problem 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 Active 3623497 04 Problem Vascular dementia with behavior disturbance F01.51 Active [id number] Problem Oropharyngeal dysphagia R13.12 Active 46181940 Problem Sundowning F05 Active 360232891 Problem Generalized anxiety disorder F41.1 A ctive 23155221 Problem Constipation, unspecified constipation type K59.00 Active 61672521 Problem Insomnia, unspecified type G47.00 Act mishel 324270135 Problem Essential hypertension I10 Active 34409934 Problem Slow transit constipation K59.01 Acti ve 77537230 Problem Other chronic pain G89.29 Active 8 9456311 Problem Irritable bowel syndrome with diarrhea K58.0 Active 498956623 Problem Severe episode of recurrent major depressive disorder, without psychotic features F33.2 Active 20773656 Problem 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 Active 1819 3002 Problem Mood disorder F39 Active 327446 05 Problem Obsessive thinking F42.8 Active 6 2918012 Problem Dementia in other diseases c lassified elsewhere with behavioral disturbance F02.81 Active 793784135 Problem Alzheimer''s disease with late onset G30.1 Active 283174151 Problem Dyspepsia K30 Active 843318276 Problem Primary insomnia F51.01 Active 397 2004 Problem Falling R29.6 Active 506373799 Problem Other chronic pain G89.29 Active 8 0969077 Problem Gastroesophageal reflux disease without esophagitis K21.9 Active 569605584 Problem Acute on chronic systolic congestive heart failure I50.23 Active 426482928 Problem Coronary artery disease invo lving redding coronary artery of redding heart without angina pectoris I25.10 Active 1641 364056336 Problem Restless legs G25.81 Active 658995 08 Problem HTN (hypertension) I10 Active 3 7877748 ALLERGIES No Information ENCOUNTERS Encounter Location Date Diagnosis [facility] [address] [id number] [address] [place] [phone] 16 Mar, 2020 [facility] [address] [place] [phone] 15 Mar, 2020 Nausea R11.0 [facility] [address] [phone] 10 Mar, 2020 [facility] [id number] [address] [place] [id number] 09 Mar, 2020 Falling R29.6 [facility] [address] [facility] [id number] [address] [place] [phone] 08 Mar, 2020 [facility] [address] [id number] [address] [place] [phone] 07 Mar, 2020 Generalized anxiety disorder F41.1 [facility] [id number] [address] [place] [id number] 02 Mar, 2020 [facility] [id number] [address] [place] [phone] Jan, [facility] [address] [place] [id number] Jan, Generalized anxiety disorder F41.1 and Pressure sore on ankle, right, unstageable L89.510 [facility] [id number] [address] [place] [phone] Jan, [facility] [address] [id number] [address] [place] [phone] Jan, [facility] [address] [id number] [address] [place] [phone] Jan, Weakness R53.1 [facility] [address] [facility] [id number] [address] [place] [phone] Jan, [facility] [address] [facility] [id number] [address] [place] [phone] Jan, Generalized anxiety disorder F41.1 [facility] [address] [id number] [address] [place] [phone] 08 Jan, 2020 Nausea R11.0 [facility] [address] [facility] [id number] [address] [place] [phone] 03 Jan, 2020 Dyspepsia K30 [facility] [address] [facility] [id number] [address] [place] [phone] Jan, [facility] [address] [facility] [id number] [address] [place] [phone] Jan, [facility] [address] [facility] [id number] [address] [place] [phone] Jan, [facility] [address] [facility] [id number] [address] [place] [phone] Jan, [facility] [address] [facility] [id number] [address] [place] [phone] Jan, [facility] [address] [place] [id number] Jan, Generalized anxiety disorder F41.1 [facility] [address] [facility] [id number] [address] [place] [phone] 18 Jan, 2020 [facility] [address] [place] [id number] 13 Jan, 2020 Coronary artery disease involving redding coronary artery of redding heart without angina pectoris I25.10 [facility] [address] [id number] [address] [place] [phone] Jan, [facility] [address] [facility] [id number] [address] [place] [phone] Dec, 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 [facility] [address] [facility] [id number] [address] [place] [phone] Dec, [facility] [address] [place] [id number] Dec, Mood disorder F39 ; Acute on chronic systolic congestive heart failure I50.23 ; Obsessive thinking F42.8 and HTN (hypertension) I10 [facility] [address] [place] [id number] Nov, Cough R05 [facility] [address] [id number] [address] [place] [phone] Nov, [facility] [address] [id number] [address] [place] [phone] Oct, [facility] [address] [place] [id number] Oct, Obsessive thinking F42.8 ; Generalized anxiety disorder F41.1 ; Primary insomnia F51.01 and Restless legs G25.81 [facility] [address] [facility] [id number] [address] [place] [id number] Sep, [facility] [address] [place] [id number] Aug, Coronary artery disease involving redding coronary artery of redding heart without angina pectoris I25.10 [facility] [address] [facility] [id number] [address] [place] [phone] Jul, [facility] [address] [facility] [id number] [address] [place] [phone] Jul, [facility] [address] [facility] [id number] [address] [place] [phone] Jul, [facility] [address] [facility] [id number] [address] [place] [phone] Jul, [facility] [address] [id number] [address] [place] [phone] Jul, [facility] [address] [place] [id number] Jun, Acute on chronic systolic congestive heart failure I50.23 and Atherosclerotic heart disease of redding 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 [facility] [address] [id number] [address] [place] [phone] Jun, [facility] [address] [id number] [address] [place] [phone] Jun, [facility] [address] [id number] [address] [place] [phone] Jun, [facility] [address] [id number] [address] [place] [phone] Jun, [facility] [address] [id number] [address] [place] [phone] Jun, [facility] [address] [id number] [address] [place] [phone] Jun, [facility] [address] [id number] [address] [place] [phone] Jun, [facility] [address] [id number] May, Pressure injury of right ankle, stage 2 L89.512 and Constipation, unspecified constipation type K59.00 [facility] [address] [id number] [address] [place] [phone] May, [facility] [address] [place] [id number] April, Constipation, unspecified constipation type K59.00 ; Pressure injury of right ankle, stage 1 L89.511 and Vascular dementia with behavior disturbance F01.51 [facility] [address] [id number] [address] [place] [phone] Mar, [facility] [address] [id number] [address] [place] [phone] Mar, [facility] [address] [id number] [address] [place] [phone] Mar, [facility] [address] [id number] [address] [place] [phone] Mar, [facility] [address] [id number] [address] [place] [phone] Jan, [facility] [address] [id number] [address] [place] [phone] Jan, [facility] [address] [id number] [address] [place] [phone] Jan, [facility] [address] [place] [id number] Jan, Pneumonia due to infectious organism, unspecified laterality, unspecified part of lung J18.9 ; Fall from bed, sequela W06.XXXS ; Hyponatremia E87.1 and Slow transit constipation K59.01 [facility] [address] [id number] [address] [place] [phone] Jan, [facility] [address] [facility] [id number] [address] [place] [phone] Jan, [facility] [address] [facility] [id number] [address] [place] [phone] Jan, [facility] [address] [facility] [id number] [address] [place] [phone] Dec, [facility] [address] [place] [id number] Dec, Other depression F32.89 ; Alzheimer''s disease with late onset G30.1 and Dementia in other diseases classified elsewhere with behavioral disturbance F02.81 [facility] [address] [facility] [id number] [address] [place] [phone] Dec, [facility] [address] [place] [id number] Dec, [facility] [address] [place] [id number] Nov, Generalized anxiety disorder F41.1 and Obsessive thinking F42.8 [facility] [address] [id number] [address] [place] [phone] Nov, [facility] [address] [id number] [address] [place] [phone] Oct, [facility] [address] [id number] [address] [place] [phone] Oct, [facility] [address] [id number] [address] [place] [id number] Oct, [facility] [address] [id number] [address] [place] [phone] Oct, [facility] [address] [facility] [id number] [address] [place] [phone] Oct, [facility] [address] [place] [id number] Oct, Generalized anxiety disorder F41.1 and Obsessive thinking F42.8 [facility] [address] [facility] [id number] [address] [place] [phone] Sep, [facility] [address] [facility] [id number] [address] [place] [phone] Sep, [facility] [address] [id number] [address] [place] [phone] Sep, [facility] [address] [facility] [id number] [address] [place] [phone] Sep, [facility] [address] [id number] Sep, Generalized anxiety disorder F41.1 ; Obsessive thinking F42.8 and Mood disorder F39 [facility] [address] [id number] [address] [place] [phone] Sep, [facility] [address] [id number] [address] [place] [phone] Sep, [facility] [address] [place] [id number] Sep, [facility] [address] [id number] [address] [place] [phone] Sep, [facility] [address] [facility] [id number] [address] [place] [phone] Sep, [facility] [address] [place] [id number] Sep, Obsessive thinking F42.8 [facility] [address] [id number] [address] [place] [phone] Sep, [facility] [address] [id number] [address] [place] [phone] Sep, [facility] [address] [id number] [address] [place] [phone] Aug, [facility] [address] [id number] [address] [place] [phone] Aug, [facility] [address] [facility] [id number] [address] [place] [phone] Aug, Positive urine drug screen R 82.5 [facility] [address] [place] [id number] Aug, [facility] [address] [id number] [address] [place] [phone] Aug, [facility] [address] [id number] [address] [place] [phone] Aug, [facility] [address] [id number] [address] [place] [phone] 17 Aug, 2018 Irritable bowel syndrome wit h diarrhea K58.0 [facility] [address] [id number] [address] [place] [phone] Aug, [facility] [address] [id number] [address] [place] [id number] 13 Aug, 2018 Obsessive thinking F42.8 ; I nsomnia, unspecified type G47.00 and Other chronic pain G89.29 [facility] [address] [place] [id number] Aug, Obsessive thinking F42.8 ; Irritable bowel syndrome with diarrhea K58.0 ; Pain in right foot M79.671 ; Pain of left foot M79.672 and Gastroesophageal reflux disease without esophagitis K21.9 [address] [id number] [place] [phone] Aug, [facility] [id number] [address] [place] [phone] Jul, [facility] [id number] [address] [place] [phone] Jun, [place] [id number] [address] [place] [phone] Jun, [facility] [address] [place] [id number] Jun, Left lower quadrant pain R10.32 and Left leg pain M79.605 [place] [id number] [address] [place] [id number] Jun, [facility] [address] [place] [id number] Jun, Pain in left hip M25.552 ; Pain in right hip M25.551 and Primary insomnia F51.01 [place] [id number] [place] [phone] Jun, [facility] [address] [place] [id number] May, [place] [id number] [address] [place] [phone] May, [place] [id number] [place] [phone] May, [facility] [address] [place] [id number] May, Mood disorder F39 [facility] [address] [facility] [id number] [address] [place] [phone] May, [facility] [address] [facility] [id number] [address] [place] [phone] April, [facility] [address] [place] [id number] April, Generalized anxiety disorder F41.1 ; Obsessive thinking F42.8 and Insomnia, unspecified type G47.00 [facility] [id number] [place] [phone] April, [facility] [id number] [place] [phone] April, Rash of face R21 [facility] [id number] [place] [phone] Mar, [facility] [id number] [address] [place] [phone] Mar, [facility] [address] [facility] [id number] [address] [place] [phone] Mar, [facility] [id number] [address] [place] [phone] Jan, [facility] [id number] [address] [place] [phone] Jan, [facility] [address] [place] [id number] Jan, Constipation, unspecified constipation type K59.00 and Other chronic pain G89.29 [facility] [address] [facility] [id number] [address] [place] [phone] Jan, [facility] [address] [place] [id number] Jan, Obsessive thinking F42.8 and Coarse tremors G25.2 [facility] [id number] [place] [id number] Jan, [facility] [address] [id number] [place] [id number] Jan, [facility] [address] [place] [id number] Jan, Generalized anxiety disorder F41.1 ; Obsessive thinking F42.8 ; Callus of foot L84 and 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 [facility] [id number] [place] [phone] Dec, Generalized anxiety disorder F41.1 and Severe episode of recurrent major depressive disorder, without psychotic features F33.2 [place] [id number] [place] [phone] Nov, [place] [id number] [place] [phone] Nov, [facility] [address] [place] [id number] Nov, Oropharyngeal dysphagia R13.12 ; Generalized anxiety disorder F41.1 and 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 [facility] [address] [facility] [id number] [address] [place] [phone] Nov, [facility] [address] [id number] [place] [facility] [place] [id number] Nov, [facility] [address] [facility] [id number] [address] [place] [phone] Nov, [facility] [address] [facility] [id number] [address] [place] [phone] Nov, [facility] [address] [facility] [id number] [address] [place] [phone] Oct, Constipation, unspecified co nstipation type K59.00 and Mood disorder F39 [facility] [address] [facility] [id number] [address] [place] [phone] Oct, [facility] [address] [id number] [place] [facility] [place] [id number] Sep, [facility] [address] [id number] [place] [id number] Sep, [facility] [address] [id number] [place] [id number] Sep, [facility] [address] [id number] [place] [id number] Sep, [facility] [address] [place] [id number] Sep, Generalized abdominal pain R10.84 [facility] [address] [facility] [id number] [address] [place] [phone] Sep, [facility] [address] [id number] [place] [id number] Sep, Generalized anxiety disorder F41.1 and P rimary insomnia F51.01 [facility] [address] [id number] [place] [id number] Aug, [facility] [address] [id number] [place] [id number] Aug, Generalized anxiety disorder F41.1 [facility] [address] [facility] [id number] [address] [place] [phone] Jul, [facility] [address] [place] [id number] Jul, Obsessive thinking F42.8 [facility] [address] [facility] [id number] [address] [place] [phone] Jul, Generalized anxiety disorder F41.1 and Irritable bowel syndrome with diarrhea K58.0 [facility] [address] [id number] [place] [id number] Jul, Generalized anxiety disorder F41.1 [facility] [address] [id number] [place] [id number] Jun, Generalized anxiety disorder F41.1 [facility] [address] [facility] [id number] [address] [place] [phone] May, [facility] [address] [place] [id number] May, Generalized anxiety disorder F41.1 ; Irritable bowel syndrome with diarrhea K58.0 and Coarse tremors G25.2 [facility] [address] [id number] [address] [place] [phone] April, [facility] [address] [id number] [address] [place] [phone] April, [facility] [address] [id number] [address] [place] [phone] April, [facility] [address] [id number] [address] [place] [id number] Mar, [facility] [address] [place], [place] [id number] Mar, Severe episode of recurrent major depressive disorder, without psychotic features F33.2 and Pain in left hip M25.552 [facility] [address] [id number] [address] [place] [id number] Mar, [facility] [address] [id number] [address] [place] [id number] Mar, [facility] [address] [id number] [address] [place] [id number] Mar, [facility] [address] [id number] [address] [place] [id number] Mar, Pain in right hip M25.551 an d Self-care deficit in patient living alone R46.89 [facility] [address] [id number] [address] [place] [id number] Jan, Other chronic pain G89.29 ; Pain in left hip M25.552 and Slow transit constipation K59.01 [facility] [address] [id number] [address] [place] [phone] Jan, [facility] [address] [id number] [address] [place] [address] Dec, Other depression F32.89 ; Co nstipation, unspecified constipation type K59.00 and Insomnia, unspecified type G47.00 [place] [address] [place] [id number] [place] [phone] Nov, Reactive depression F32.9 ; Chronic idiopathic constipation K59.04 ; Generalized anxiety disorder F41.1 ; Coarse tremors G25.2 ; Gastroesophageal reflux disease without esophagitis K21.9 ; Dysthymic disorder F34.1 ; Vitamin deficiency, unspecified E56.9 and Primary insomnia F51.01 [place] [address] [address] Nov, [place] [address] [address] Nov, [place] [address] [address] Nov, [place] [address] [address] Nov, Reactive depression F32.9 ; Essential hypertension I10 ; Generalized anxiety disorder F41.1 ; Atherosclerotic heart disease of redding 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 ; Pain in right hip M25.551 ; Other chronic pain G89.29 ; Chronic idiopathic constipation K59.04 ; Primary insomnia F51.01 ; Coarse tremors G25.2 ; Gastroesophageal reflux disease without esophagitis K21.9 ; Iron deficiency anemia secondary to inadequate dietary iron intake D50.8 and Vitamin deficiency, unspecified E56.9 [place] [id number] [place] [phone] Oct, [place] [address] [place] [id number] [place] [phone] Oct, [place] [address] [place] [id number] [place] [phone] Oct, [place] [address] [id number] 16 Oct, 2016 Generalized anxiety disorder F41.1 ; Poor appetite R63.0 ; Dehydration E86.0 and Failure to thrive in adult R62.7 [facility] [address] [facility] [id number] [address] [place] [id number] 07 Oct, 2016 Generalized anxiety disorder F41.1 and Failure to thrive in adult R62.7 [facility] [address] [place] [id number] [address] [place] [phone] 03 Oct, 2016 [facility] [address] [facility] [id number] [address] [place] [phone] Oct, [facility] [address] [place] [id number] [place] [phone] Sep, Vaginal discharge N89.8 and Acute cystitis with hematuria N30.01 [facility] [address] [place] [id number] [address] [place] [phone] Sep, [facility] [address] [place] [id number] [address] [place] [phone] Sep, [facility] [address] [address] Sep, Dysthymic disorder F34.1 ; A cute vaginitis N76.0 ; Dysuria R30.0 and Vaginal yeast infection B37.3 [facility] [address] [place] [id number] [address] [place] [phone] Aug, [facility] [address] [place] [id number] [address] [place] [phone] Aug, [facility] [address] [facility] [id number] [address] [place] [phone] Aug, Foul smelling urine R82.90 ; Rapid heart rate R00.0 and Flatulence R14.3 [facility] [address] [place] [id number] [address] [place] [phone] Aug, [facility] [address] [place] [id number] [address] [place] [phone] Jul, Constipation, unspecified co nstipation type K59.00 ; Weak R53.1 ; Poor appetite R63.0 ; Coronary artery disease involving redding heart without angina pectoris, unspecified vessel or lesion type I25.10 ; Fatigue, unspecified type R53.83 ; Urinary incontinence, unspecified type R32 and Insomnia, unspecified type G47.00 [place] [id number] [facility] [id number] [address] [place] [phone] Jul, [place] [address] [place] [id number] [address] [place] [phone] Jun, Dysuria R30.0 [place] [address] [place] [id number] [place] [phone] Jun, [place] [address] [place] [id number] [place] [phone] Jun, Urinary tract infection, sit e not specified N39.0 ; Acute vaginitis N76.0 and Diarrhea, unspecified type R19.7 [place] [address] [place] [id number] [place] [phone] May, [place] [address] [address] April, [facility] [address] [place] [id number] [address] [place] [address] [id number] April, Encounter for dental examina tion Z01.20 [facility] [address] [place] [id number] [address] [place] [phone] April, [place] [address] [address] April, Tremor R25.1 and Episodic te nsion-type headache, not intractable G44.219 [facility] [address] [place] [id number] [address] [place] [phone] Mar, [facility] [address] [place] [id number] [place] [address] [place] [address] 15 Jan, 2016 Mood disorder F39 [facility] [address] [id number] [address] [place] [phone] Jan, [facility] [address] [id number] [address] [place] [phone] Jan, [facility] [address] [id number] [address] [place] [phone] Jan, [facility] [address] [id number] [address] [place] [phone] Jan, [facility] [address] [id number] [address] [place] [phone] Jan, [facility] [address] [facility] [id number] [address] [place] [phone] Jan, [facility] [address] [facility] [id number] [address] [place] [phone] Dec, Acute diarrhea R19.7 [facility] [address] [id number] [address] [place] [phone] Dec, [facility] [address] [facility] [id number] [address] [place] [phone] Dec, [facility] [address] [facility] [id number] [address] [place] [id number] Dec, [facility] [address] [id number] [address] [place] [phone] Dec, N&V (nausea and vomiting) R1 1.2 [facility] [address] [id number] [address] [place] [phone] Dec, Generalized anxiety disorder F41.1 [facility] [address] [facility] [id number] [address] [place] [phone] Dec, Generalized anxiety disorder F41.1 [facility] [address] [facility] [id number] [address] [place] [phone] Nov, Post concussion syndrome F07 .81 [facility] [address] [facility] [id number] [address] [place] [phone] Nov, Generalized anxiety disorder F41.1 [facility] [address] [facility] [id number] [address] [place] [phone] Nov, [facility] [address] [facility] [id number] [address] [place] [phone] Nov, Generalized anxiety disorder F41.1 [facility] [address] [id number] [address] [place] [address] [id number] Oct, Dental caries K02.9 [facility] [address] [facility] [id number] [place] [phone] Oct, [facility] [address] [facility] [id number] [address] [place] [address] [id number] Oct, Dental examination Z01.20 [facility] [id number] [place] [address] [id number] Oct, Encounter for dental examina tion Z01.20 [facility] [address] [phone] Oct, CAD (coronary artery disease ) I25.10 [facility] [address] [place] [id number] [address] [place] [phone] Sep, Generalized anxiety disorder F41.1 [facility] [address] [facility] [id number] [address] [place] [id number] Sep, [facility] [address] [facility] [id number] [address] [place] [id number] Sep, Rash and other nonspecific s kin eruption R21 and Yeast vaginitis B37.3 [facility] [address] [facility] [id number] [address] [place] [phone] Sep, Generalized anxiety disorder F41.1 [facility] [address] [facility] [id number] [address] [place] [phone] Aug, Insect bites 919.4 and Hemor rhoids 455.6 [facility] [address] [address] Aug, Generalized anxiety disorder 300.02 [facility] [address] [address] Aug, [facility] [address] [address] Aug, [facility] [address] [address] Aug, Generalized anxiety disorder 300.02 ; No condition on [place] V71.09 ; Heart problem 429.9 and Hypertension 401.9 [facility] [address] [address] Aug, [facility] [address] [id number] Jul, [facility] [address] [id number] Jul, [facility] [address] [id number] Jul, [facility] [address] [phone] Jul, [facility] [address] [address] Jul, Rash 782.1 [facility] [address] [address] Jul, UTI (urinary tract infection ) 599.0 [facility] [address] [address] Jul, [facility] [address] [place] [id number] [address] [place] [phone] Jun, Dysthymia 300.4 and Anxiety 300.00 [facility] [address] [id number] [address] [place] [phone] Jun, 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 [facility] [address] [id number] [address] [place] [id number] May, [facility] [address] [id number] [address] [place] [phone] May, [facility] [address] [id number] [address] [place] [phone] May, Unspecified breast screening V76.10 [facility] [address] [id number] [address] [place] [address] [id number] May, Dental examination V72.2 [facility] [address] [id number] [address] [place] [phone] April, [facility] [address] [id number] [address] [place] [phone] April, [facility] [address] [id number] [address] [place] [address] [id number] April, Dental examination V72.2 [facility] [address] [id number] [address] [place] [address] [id number] April, Dental examination V72.2 [facility] [address] [id number] [address] [place] [phone] Mar, [facility] [address] [id number] [address] [place] [phone] Mar, [facility] [address] [id number] [address] [place] [phone] Jan, [facility] [address] [id number] [address] [place] [phone] Jan, [facility] [address] [id number] [address] [place] [phone] Jan, [facility] [address] [id number] [address] [place] [phone] Jan, [facility] [address] [id number] [address] [place] [address] 16 Jan, 2015 [facility] [address] [id number] [address] [place] [address], [place] [address] 16 Jan, 2015 [facility] [address] [id number] [address] [place] [address], [place] [address] 13 Jan, 2015 [facility] [address] [id number] [address] [place] [address], [place] [phone] 13 Jan, 2015 [facility] [address] [id number] [address] [place] [address], [place] [address] 11 Jan, 2015 [facility] [address] [id number] [address] [place] [address], [place] [address] Jan, [facility] [address] [id number] [address] [place] [address], [place] [address] Jan, [facility] [address] [id number] [address] [place] [address], [place] [address] Jan, [facility] [address] [id number] [address] [place] [address], [place] [address] Jan, [facility] [address] [id number] [address] [place] [address], [place] [address] Jan, [facility] [address] [id number] [address] [place] [address], [place] [address] Jan, 2014 [facility] [address] [id number] [address] [place] [address], [place] [address] Jan, 2014 [facility] [address] [id number] [address] [place] [address], [place] [address] Jan, 2014 [facility] [address] [id number] [address] [place] [address], [place] [address] Jan, 2014 [facility] [address] [id number] [address] [place] [address], [place] [address] Jan, 2014 [facility] [address] [id number] [address] [place] [address], [place] [address] Jan, 2014 [facility] [address] [id number] [address] [place] [address], [place] [address] Jan, [facility] [address] [id number] [address] [place] [address], [place] [address] Jan, [facility] [address] [id number] [address] [place] [address], [place] [address] Dec, [facility] [address] [id number] [address] [place] [address], [place] [address] Dec, [facility] [address] [id number] [address] [place] [address], [place] [address] Dec, [facility] [address] [id number] [address] [place] [address], [place] [address] Dec, [facility] [address] [id number] [address] [place] [address], [place] [address] Nov, [facility] [address] [id number] [address] [place] [address], [place] [address] Nov, [facility] [address] [id number] [address] [place] [address], [place] [address] Nov, [facility] [address] [id number] [address] [place] [address], [place] [address] Nov, [facility] [address] [id number] [address] [place] [address], [place] [address] Nov, [facility] [address] [id number] [address] [place] [address], [place] [address] Nov, [facility] [address] [id number] [address] [place] [address], [place] [address] Nov, [facility] [address] [id number] [address] [place] [address], [place] [address] Oct, [facility] [address] [id number] [address] [place] [address], [place] [address] Oct, [facility] [address] [id number] [address] [place] [address], [place] [address] Oct, [facility] [address] [id number] [address] [place] [address], [place] [address] Oct, [facility] [address] [id number] [address] [place] [address], [place] [address] Oct, [facility] [address] [id number] [address] [place] [address], [place] [address] Oct, [facility] [address] [id number] [address] [place] [address], [place] [address] Oct, [facility] [address] [id number] [address] [place] [address], [place] [address] Oct, [facility] [address] [id number] [address] [place] [address], [place] [address] Oct, [facility] [address] [id number] [address] [place] [address], [place] [address] Oct, [facility] [address] [id number] [address] [place] [address], [place] [address] Oct, [facility] [address] [id number] [address] [place] [address], [place] [address] Oct, [facility] [address] [id number] [address] [place] [address], [place] [address] Sep, [facility] [address] [id number] [address] [place] [address], [place] [address] Sep, [facility] [address] [id number] [address] [place] [address], [place] [address] Sep, [facility] [address] [id number] [address] [place] [address], [place] [address] Sep, [facility] [address] [id number] [address] [place] [address], [place] [address] Jul, [facility] [address] [id number] [address] [place] [address] [place] [address] Jul, [facility] [address] [id number] [address] [place] [address], [place] [address] Jul, [facility] [address] [id number] [address] [place] [address], [place] [address] Jul, [facility] [address] [id number] [address] [place] [address], [place] [address] Jun, [facility] [address] [id number] [address] [place] [address], [place] [address] Jun, [facility] [address] [id number] [address] [place] [address], [place] [address] Jun, [facility] [address] [id number] [address] [place] [address], [place] [address] Jun, [facility] [address] [id number] [address] [place] [address], [place] [address] May, [facility] [address] [id number] [address] [place] [address], [place] [address] May, [facility] [address] [id number] [address] [place] [address], [place] [address] April, [facility] [address] [id number] [address] [place] [address], [place] [address] April, [facility] [address] [id number] [address] [place] [address], [place] [address] April, [facility] [address] [id number] [address] [place] [address], [place] [address] April, [facility] [address] [id number] [address] [place] [address], [place] [address] April, [facility] [address] [id number] [address] [place] [address], [place] [address] April, [facility] [address] [id number] [address] [place] [address], [place] [address] April, [facility] [address] [id number] [address] [place] [address] April, [facility] [address] [id number] [address] [place] [address], [place] [address] April, [facility] [address] [id number] [address] [place] [address], [place] [address] Mar, [facility] [address] [id number] [address] [place] [address], [place] [address] Mar, [facility] [address] [id number] [address] [place] [address], [place] [address] Mar, [facility] [address] [id number] [address] [place] [address], [place] [address] Mar, [facility] [address] [id number] [address] [place] [address], [place] [address] Jan, [facility] [address] [id number] [address] [place] [address], [place] [address] Jan, [facility] [address] [id number] [address] [place] [address], [place] [address] Jan, [facility] [address] [id number] [address] [place] [address], [place] [address] Jan, [facility] [address] [id number] [address] [place] [address], [place] [address] Jan, [facility] [address] [id number] [address] [place] [address], [place] [address] Jan, [facility] [address] [id number] [address] [place] [address], [place] [address] Jan, [facility] [address] [id number] [address] [place] [address], [place] [address] Jan, [facility] [address] [id number] [address] [place] [address], [place] [address] Jan, [facility] [address] [id number] [address] [place] [address], [place] [address] Jan, [facility] [address] [id number] [address] [place] [address], [place] [address] Jan, [facility] [address] [id number] [address] [place] [address], [place] [address] Jan, [facility] [address] [id number] [address] [place] [address], [place] [address] Dec, [facility] [address] [id number] [address] [place] [address], [place] [address] Dec, [facility] [address] [id number] [address] [place] [address], [place] [address] Dec, [facility] [address] [id number] [address] [place] [address], [place] [address] Dec, [facility] [address] [id number] [address] [place] [address], [place] [address] Nov, [facility] [address] [id number] [address] [place] [address], [place] [address] Nov, [facility] [address] [id number] [address] [place] [address], [place] [address] Nov, [facility] [address] [id number] [address] [place] [address], [place] [address] Nov, [facility] [address] [id number] [address] [place] [address], [place] [address] Oct, [facility] [address] [id number] [address] [place] [address], [place] [address] Oct, [facility] [address] [id number] [address] [place] [address], [place] [address] Sep, [facility] [address] [id number] [address] [place] [address], [place] [address] Sep, [facility] [address] [id number] [address] [place] [address], [place] [address] Jul, [facility] [address] [id number] [address] [place] [address], [place] [address] Jul, [facility] [address] [id number] [address] [place] [address], [place] [address] Jun, [facility] [address] [id number] [address] [place] [address], [place] [address] Jun, [facility] [address] [id number] [address] [place] [address], [place] [address] Jun, [facility] [address] [id number] [address] [place] [address], [place] [address] May, [facility] [address] [id number] [address] [place] [address], [place] [address] May, [facility] [address] [id number] [address] [place] [address], [place] [address] May, [facility] [address] [id number] [address] [place] [address], [place] [address] May, [facility] [address] [id number] [address] [place] [address], [place] [address] May, [facility] [address] [id number] [address] [place] [address], [place] [address] April, [facility] [address] [id number] [address] [place] [address], [place] [address] April, [facility] [address] [id number] [address] [place] [address], [place] [address] April, [facility] [address] [id number] [address] [place] [address], [place] [address] April, [facility] [address] [id number] [address] [place] [address], [place] [address] April, [facility] [address] [id number] [address] [place] [address], [place] [address] April, [facility] [address] [id number] [address] [place] [address], [place] [address] Mar, [facility] [address] [id number] [address] [place] [address], [place] [address] 15 Mar, 2013 [facility] [address] [id number] [address] [place] [address], [place] [address] Jan, [facility] [address] [id number] [address] [place] [address], [place] [address] Jan, [facility] [address] [id number] [address] [place] [address], [place] [address] Jan, [facility] [address] [id number] [address] [place] [address], [place] [address] Jan, [facility] [address] [id number] [address] [place] [address], [place] [address] Jan, [facility] [address] [id number] [address] [place] [address], [place] [address] Jan, [facility] [address] [id number] [address] [place] [address], [place] [address] 05 Jan, 2013 [facility] [address] [id number] [address] [place] [address], [place] [address] Jan, [facility] [address] [id number] [address] [place] [address], [place] [address] Jan, [facility] [address] [id number] [address] [place] [address], [place] [address] Jan, [facility] [address] [id number] [address] [place] [address], [place] [address] Jan, [facility] [address] [id number] [address] [place] [address], [place] [address] Dec, [facility] [address] [id number] [address] [place] [address], [place] [address] Nov, [facility] [address] [id number] [address] [place] [address], [place] [address] Nov, [facility] [address] [id number] [address] [place] [address], [place] [address] 26 Nov, 2012 [facility] [address] [id number] [address] [place] [address], [place] [address] Nov, [facility] [address] [id number] [address] [place] [address], [place] [address] Nov, [facility] [address] [id number] [address] [place] [address], [place] [address] Nov, [facility] [address] [id number] [address] [place] [address], [place] [address] Nov, [facility] [address] [id number] [address] [place] [address], [place] [address] Nov, [facility] [address] [id number] [address] [place] [address], [place] [address] Nov, [facility] [address] [id number] [address] [place] [address], [place] [address] Nov, [facility] [address] [id number] [address] [place] [address], [place] [address] 18 Nov, 2012 [facility] [address] [id number] [address] [place] [address], [place] [address] Nov, [facility] [address] [id number] [address] [place] [address], [place] [address] Nov, [facility] [address] [id number] [address] [place] [address], [place] [address] Oct, [facility] [address] [id number] [address] [place] [address], [place] [address] Oct, [facility] [address] [id number] [address] [place] [address], [place] [address] Oct, [facility] [address] [id number] [address] [place] [address], [place] [address] Sep, [facility] [address] [id number] [address] [place] [address], [place] [address] Sep, [facility] [address] [id number] [address] [place] [address], [place] [address] 10 Sep, 2012 [facility] [address] [id number] [address] [place] [address], [place] [address] 10 Sep, 2012 [facility] [address] [id number] [address] [place] [address], [place] [address] 27 Aug, 2012 [facility] [address] [id number] [address] [place] [address], [place] [address] 20 Aug, 2012 [facility] [address] [id number] [address] [place] [address], [place] [address] 24 Jul, 2012 [facility] [address] [id number] [address] [place] [address], [place] [address] 27 May, 2012 [facility] [address] [id number] [address] [place] [address], [place] [address] 14 May, 2012 [facility] [address] [id number] [address] [place] [address], [place] [address] 14 May, 2012 [facility] [address] [id number] [address] [place] [address], [place] [address] April, [facility] [address] [id number] [address] [place] [address], [place] [address] Mar, [facility] [address] [id number] [address] [place] [address], [place] [address] Mar, [facility] [address] [id number] [address] [place] [address], [place] [address] 03 Mar, 2012 [facility] [address] [id number] [address] [place] [address], [place] [address] Jan, [facility] [address] [id number] [address] [place] [address], [place] [address] Jan, [facility] [address] [id number] [address] [place] [address], [place] [address] Jan, [facility] [address] [id number] [address] [place] [id number] Dec, [facility] [address] [id number] [address] [place] [address], [place] [address] Dec, [facility] [address] [id number] [address] [place] [phone] Dec, [facility] [address] [id number] [address] [place] [address], [place] [address] Dec, [facility] [address] [id number] [address] [place] [address], [place] [address] Nov, [facility] [address] [id number] [address] [place] [address], [place] [address] 15 Nov, 2011 [facility] [address] [id number] [address] [place] [address], [place] [address] Nov, [facility] [address] [id number] [address] [place] [phone] Oct, [facility] [address] [id number] [address] [place] [address], [place] [address] 31 Sep, 2011 [facility] [address] [id number] [address] [place] [address], [place] [address] 26 Sep, 2011 [facility] [address] [id number] [address] [place] [id number] 13 Sep, 2011 [facility] [address] [id number] [address] [place] [address], [place] [address] 15 Nov, 2010 [facility] [address] [id number] [address] [place] [id number] 23 Oct, 2010 [facility] [address] [id number] [address] [place] [address], [place] [address] 19 Oct, 2010 [facility] [address] [id number] [address] [place] [address], [place] [address] 18 Oct, 2010 [facility] [address] [id number] [address] [place] [address], [place] [address] 16 Oct, 2010 [facility] [address] [id number] [address] [place] [phone] Sep, [facility] [address] [id number] [address] [place] [phone] April, [facility] [address] [id number] [address] [place] [phone] Nov, [facility] [address] [id number] [address] [place] [phone] Nov, [facility] [address] [id number] [address] [place] [phone] Nov, [facility] [address] [id number] [address] [place] [phone] Nov, [facility] [address] [id number] [address] [place] [phone] Nov, [facility] [address] [id number] [address] [place] [phone] Oct, [facility] [address] [id number] [address] [place] [phone] Oct, [facility] [address] [id number] [address] [place] [phone] Sep, [facility] [address] [id number] [address] [place] [phone] Jan, IMMUNIZATIONS No Known Immunizations SOCIAL HISTORY [...] History Intertrechanteric hip fx 04/27/16 Hospitalization History [facility] ([facility] 2 times) Hx of 3 inpatient psych treatments in past in [place] oct 2016 [facility]
[2020-04-18 20:14] LABS: ABG BASE EXCESS -2.5 MMOL/L (-2.5-2.5); ABG OXYGEN SATURATION 98 % (94-100); ABG PCO2 30 MMHG (35-45); ABG PH 7.45 (7.37-7.43); ABG PO2 104 MMHG (79-93); ABG TCO2 21.8 MMOL/L (21.0-31.0); ALLENS TEST YES-POS; INSPIRED O2 50%
--- OUTSIDE RECORDS SUMMARY | 2020-04-18 20:14 | XMS REPORT ---
Author Author Ave AGUIRRE Organization [facility] Address [address] [place] [address] Care Team Providers Care Paraoptometric Name Role Phone WOLF AGUIRRE Unavailable PROBLEMS Type Condition ICD9-CM Code ICM08-FU Code Onset Dates Condition S tatus SNOMED Code Problem Dysthymic disorder F34.1 Active 7 0802187 Problem Poor appetite R63.0 Active 758024 06 Problem Failure to thrive in adult R62.7 Act mishel [id number] Problem Coarse tremors G25.2 Active 33835 004 Problem Iron deficiency anemia secondary to inadequate d ietary iron intake D50.8 Active 505142247 Problem Atherosclerotic heart diseas e of [place] 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 Active [id number] Problem Reactive depression F32.9 Active 71642642 Problem 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 Active 6941983 04 Problem Vascular dementia with behavior disturbance F01.51 Active [id number] Problem Oropharyngeal dysphagia R13.12 Active 56225037 Problem Sundowning F05 Active 318509829 Problem Generalized anxiety disorder F41.1 A ctive 13117872 Problem Constipation, unspecified constipation type K59.00 Active 77453958 Problem Insomnia, unspecified type G47.00 Act mishel 170956163 Problem Essential hypertension I10 Active 42545006 Problem Slow transit constipation K59.01 Acti ve 37663936 Problem Other chronic pain G89.29 Active 8 0735845 Problem Irritable bowel syndrome with diarrhea K58.0 Active 929384585 Problem Severe episode of recurrent major depressive disorder, without psychotic features F33.2 Active 36426597 Problem 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 Active 1819 3002 Problem Mood disorder F39 Active 716215 05 Problem Obsessive thinking F42.8 Active 6 4626765 Problem Dementia in other diseases c lassified elsewhere with behavioral disturbance F02.81 Active 860242258 Problem Alzheimer''s disease with late onset G30.1 Active 711884580 Problem Dyspepsia K30 Active 675835273 Problem Primary insomnia F51.01 Active 397 2004 Problem Falling R29.6 Active 667656307 Problem Other chronic pain G89.29 Active 8 8797383 Problem Gastroesophageal reflux disease without esophagitis K21.9 Active 330067689 Problem Acute on chronic systolic congestive heart failure I50.23 Active 226110156 Problem Coronary artery disease invo lving [place] coronary artery of [place] heart without angina pectoris I25.10 Active 1641 071270056 Problem Restless legs G25.81 Active 006895 08 Problem HTN (hypertension) I10 Active 3 7736603 ALLERGIES No Information ENCOUNTERS Encounter Location Date Diagnosis [facility] [address] [facility] [id number] [address] [place] [phone] 10 Mar, 2020 [facility] [address] [facility] [id number] [address] [place] [phone] 09 Mar, 2020 Falling R29.6 [facility] [address] [place] [id number] [address] [place] [phone] 08 Mar, 2020 [facility] [address] [place] [id number] [address] [place] [phone] 07 Mar, 2020 Generalized anxiety disorder F41.1 [facility] [address] [facility] [id number] [address] [place] [phone] 02 Mar, 2020 [facility] [address] [facility] [id number] [address] [place] [phone] Jan, [facility] [address] [place] [id number] Jan, Generalized anxiety disorder F41.1 and Pressure sore on ankle, right, unstageable L89.510 [facility] [address] [facility] [id number] [address] [place] [phone] Jan, [facility] [address] [facility] [id number] [address] [place] [phone] Jan, [facility] [address] [facility] [id number] [address] [place] [phone] Jan, Weakness R53.1 [facility] [address] [id number] [address] [place] [phone] 20 Jan, 2020 [facility] [address] [id number] [address] [place] [phone] 10 Jan, 2020 Generalized anxiety disorder F41.1 [facility] [address] [id number] [address] [place] [phone] 08 Jan, 2020 Nausea R11.0 [facility] [address] [id number] [address] [place] [phone] 03 Jan, 2020 Dyspepsia K30 [facility] [address] [id number] [address] [place] [phone] Jan, [facility] [address] [id number] [address] [place] [phone] Jan, [facility] [address] [id number] [address] [place] [phone] Jan, [facility] [address] [facility] [id number] [address] [place] [phone] Jan, [facility] [address] [facility] [id number] [address] [place] [phone] Jan, [facility] [address] [place] [id number] Jan, Generalized anxiety disorder F41.1 [facility] [address] [id number] [address] [place] [phone] 18 Jan, 2020 [facility] [address] [place] [id number] Jan, Coronary artery disease involving [place] coronary artery of [place] heart without angina pectoris I25.10 [facility] [address] [id number] [address] [place] [phone] Jan, [facility] [address] [facility] [id number] [address] [place] [phone] Dec, Atherosclerotic heart diseas e of [place] 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 [facility] [address] [facility] [id number] [address] [place] [phone] Dec, [facility] [id number] Dec, Mood disorder F39 ; Acute on chronic systolic congestive heart failure I50.23 ; Obsessive thinking F42.8 and HTN (hypertension) I10 [facility] [address] [place] [id number] Nov, Cough R05 [facility] [address] [facility] [id number] [address] [place] [phone] Nov, [facility] [address] [facility] [id number] [address] [place] [phone] Oct, [facility] [address] [place] [id number] Oct, Obsessive thinking F42.8 ; Generalized anxiety disorder F41.1 ; Primary insomnia F51.01 and Restless legs G25.81 [facility] [address] [facility] [id number] [address] [place] [phone] Sep, [facility] [id number] Aug, Coronary artery disease involving [place] coronary artery of [place] heart without angina pectoris I25.10 [facility] [address] [facility] [id number] [address] [place] [phone] Jul, [facility] [address] [facility] [id number] [address] [place] [phone] Jul, [facility] [address] [facility] [id number] [address] [place] [phone] Jul, [facility] [address] [facility] [id number] [address] [place] [phone] Jul, [facility] [address] [facility] [id number] [address] [place] [phone] Jul, [facility] [address] [place] [id number] Jun, Acute on chronic systolic congestive heart failure I50.23 and Atherosclerotic heart disease of [place] 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 [facility] [address] [id number] [address] [place] [phone] Jun, [facility] [address] [id number] [address] [place] [phone] Jun, [facility] [address] [id number] [address] [place] [phone] Jun, [facility] [address] [id number] [address] [place] [phone] Jun, [facility] [address] [id number] [address] [place] [phone] Jun, [facility] [address] [id number] [address] [place] [phone] Jun, [facility] [address] [id number] [address] [place] [phone] Jun, [facility] [address] [place] [id number] May, Pressure injury of right ankle, stage 2 L89.512 and Constipation, unspecified constipation type K59.00 [facility] [address] [id number] [address] [place] [phone] May, [facility] [address] [place] [id number] April, Constipation, unspecified constipation type K59.00 ; Pressure injury of right ankle, stage 1 L89.511 and Vascular dementia with behavior disturbance F01.51 [facility] [address] [id number] [address] [place] [phone] Mar, [facility] [address] [id number] [address] [place] [phone] Mar, [facility] [address] [id number] [address] [place] [phone] Mar, [facility] [address] [facility] [id number] [address] [place] [phone] Mar, [facility] [address] [facility] [id number] [address] [place] [phone] Jan, [facility] [address] [facility] [id number] [address] [place] [phone] Jan, [facility] [address] [facility] [id number] [address] [place] [phone] Jan, [facility] [address] [id number] Jan, Pneumonia due to infectious organism, unspecified laterality, unspecified part of lung J18.9 ; Fall from bed, sequela W06.XXXS ; Hyponatremia E87.1 and Slow transit constipation K59.01 [place] [address] [facility] [id number] [address] [place] [phone] Jan, [place] [address] [facility] [id number] [address] [place] [phone] Jan, [facility] [address] [facility] [id number] [address] [place] [phone] Jan, [place] [address] [facility] [id number] [address] [place] [phone] Dec, [facility] [address] [id number] Dec, Other depression F32.89 ; Alzheimer''s disease with late onset G30.1 and Dementia in other diseases classified elsewhere with behavioral disturbance F02.81 [facility] [address] [facility] [id number] [address] [place] [phone] Dec, [facility] [address] [id number] Dec, [facility] [address] [id number] Nov, Generalized anxiety disorder F41.1 and Obsessive thinking F42.8 [place] [address] [place] [id number] [address] [place] [phone] Nov, [facility] [address] [id number] [address] [place] [phone] Oct, [facility] [address] [id number] [address] [place] [phone] Oct, [facility] [address] [id number] [address] [place] [phone] Oct, [facility] [address] [id number] [address] [place] [phone] Oct, [facility] [address] [id number] [address] [place] [phone] Oct, [facility] [address] [place] [id number] Oct, Generalized anxiety disorder F41.1 and Obsessive thinking F42.8 [facility] [address] [id number] [address] [place] [phone] Sep, [facility] [address] [id number] [address] [place] [phone] Sep, [facility] [address] [id number] [address] [place] [phone] Sep, [facility] [address] [id number] [address] [place] [phone] Sep, [facility] [address] [place] [id number] Sep, Generalized anxiety disorder F41.1 ; Obsessive thinking F42.8 and Mood disorder F39 [facility] [address] [id number] [address] [place] [phone] Sep, [facility] [address] [id number] [address] [place] [phone] Sep, [facility] [address] [place] [id number] Sep, [facility] [address] [id number] [address] [place] [phone] Sep, [facility] [address] [id number] [address] [place] [phone] Sep, [facility] [address] [place] [id number] Sep, Obsessive thinking F42.8 [facility] [address] [id number] [address] [place] [phone] Sep, [facility] [address] [id number] [address] [place] [phone] Sep, [facility] [address] [id number] [address] [place] [phone] Aug, [facility] [address] [id number] [address] [place] [phone] Aug, [facility] [address] [id number] [address] [place] [phone] Aug, Positive urine drug screen R 82.5 [facility] [id number] Aug, [facility] [address] [id number] [address] [place] [phone] Aug, [facility] [address] [id number] [address] [place] [phone] Aug, [facility] [address] [id number] [address] [place] [phone] Aug, Irritable bowel syndrome wit h diarrhea K58.0 [facility] [address] [id number] [address] [place] [phone] Aug, [facility] [address] [facility] [id number] [address] [place] [phone] Aug, Obsessive thinking F42.8 ; I nsomnia, unspecified type G47.00 and Other chronic pain G89.29 [facility] [address] [place] [id number] Aug, Obsessive thinking F42.8 ; Irritable bowel syndrome with diarrhea K58.0 ; Pain in right foot M79.671 ; Pain of left foot M79.672 and Gastroesophageal reflux disease without esophagitis K21.9 [facility] [address] [id number] [address] [place] [phone] Aug, [facility] [address] [id number] [address] [place] [phone] Jul, [facility] [address] [facility] [id number] [address] [place] [phone] Jun, [facility] [address] [facility] [id number] [address] [place] [phone] Jun, [facility] [address] [place] [id number] Jun, Left lower quadrant pain R10.32 and Left leg pain M79.605 [facility] [address] [facility] [id number] [address] [place] [phone] Jun, [facility] [address] [place] [id number] Jun, Pain in left hip M25.552 ; Pain in right hip M25.551 and Primary insomnia F51.01 [facility] [address] [facility] [id number] [address] [place] [phone] Jun, [facility] [place] [address] [place] [id number] May, [facility] [address] [facility] [id number] [address] [place] [phone] May, [facility] [address] [facility] [id number] [address] [place] [phone] May, [facility] [address] [place] [id number] May, Mood disorder F39 [facility] [address] [facility] [id number] [address] [place] [phone] May, [facility] [address] [facility] [id number] [address] [place] [phone] April, [facility] [address] [place] [id number] April, Generalized anxiety disorder F41.1 ; Obsessive thinking F42.8 and Insomnia, unspecified type G47.00 [facility] [address] [facility] [id number] [address] [place] [phone] April, [facility] [address] [facility] [id number] [address] [place] [phone] April, Rash of face R21 [facility] [address] [facility] [id number] [address] [place] [phone] Mar, [facility] [address] [facility] [id number] [address] [place] [phone] Mar, [facility] [address] [facility] [id number] [address] [place] [phone] Mar, [facility] [address] [facility] [id number] [address] [place] [phone] Jan, [facility] [address] [facility] [id number] [address] [place] [phone] Jan, [facility] [address] [place] [id number] Jan, Constipation, unspecified constipation type K59.00 and Other chronic pain G89.29 [facility] [address] [facility] [id number] [address] [place] [phone] Jan, [facility] [address] [place] [id number] Jan, Obsessive thinking F42.8 and Coarse tremors G25.2 [facility] [address] [id number] [place] [id number] Jan, [facility] [address] [id number] [place] [id number] Jan, [facility] [address] [place] [id number] Jan, Generalized anxiety disorder F41.1 ; Obsessive thinking F42.8 ; Callus of foot L84 and 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 [place] [address] [facility] [id number] [address] [place] [phone] Dec, Generalized anxiety disorder F41.1 and Severe episode of recurrent major depressive disorder, without psychotic features F33.2 [facility] [address] [facility] [id number] [address] [place] [phone] Nov, [facility] [address] [facility] [id number] [address] [place] [phone] Nov, [facility] [address] [place] [id number] Nov, Oropharyngeal dysphagia R13.12 ; Generalized anxiety disorder F41.1 and 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 [place] [address] [facility] [id number] [address] [place] [phone] Nov, [facility] [address] [id number] [place] [id number] Nov, [facility] [address] [facility] [id number] [address] [place] [phone] Nov, [place] [address] [facility] [id number] [address] [place] [phone] Nov, [facility] [address] [facility] [id number] [address] [place] [phone] Oct, Constipation, unspecified co nstipation type K59.00 and Mood disorder F39 [facility] [address] [id number] [address] [place] [phone] Oct, [facility] [address] [id number] [place] [id number] Sep, [facility] [address] [id number] [place] [id number] Sep, [facility] [address] [id number] [place] [id number] Sep, [facility] [address] [id number] [place] [id number] Sep, [facility] [address] [place] [id number] Sep, Generalized abdominal pain R10.84 [facility] [address] [facility] [id number] [address] [place] [phone] Sep, [facility] [address] [id number] [place] [id number] Sep, Generalized anxiety disorder F41.1 and P rimary insomnia F51.01 [facility] [address] [id number] [place] [id number] Aug, [facility] [address] [id number] [place] [id number] Aug, Generalized anxiety disorder F41.1 [place] [address] [facility] [id number] [address] [place] [phone] Jul, [facility] [address] [place] [id number] Jul, Obsessive thinking F42.8 [place] [address] [facility] [id number] [address] [place] [phone] Jul, Generalized anxiety disorder F41.1 and Irritable bowel syndrome with diarrhea K58.0 [place] [address] [id number] [place] [id number] Jul, Generalized anxiety disorder F41.1 [facility] [address] [id number] [facility] [place] [place] [id number] Jun, Generalized anxiety disorder F41.1 [place] [address] [facility] [id number] [address] [place] [phone] May, [facility] [address] [place] [id number] May, Generalized anxiety disorder F41.1 ; Irritable bowel syndrome with diarrhea K58.0 and Coarse tremors G25.2 [place] [address] [id number] [address] [place] [phone] April, [facility] [address] [id number] [address] [place] [phone] April, [facility] [address] [id number] [address] [place] [phone] April, [facility] [address] [facility] [id number] [address] [place] [phone] Mar, [facility] [address] [place] [id number] Mar, Severe episode of recurrent major depressive disorder, without psychotic features F33.2 and Pain in left hip M25.552 [facility] [address] [facility] [id number] [address] [place] [id number] Mar, [facility] [address] [facility] [id number] [address] [place] [id number] Mar, [facility] [address] [facility] [id number] [address] [place] [phone] Mar, [facility] [address] [facility] [id number] [address] [place] [phone] Mar, Pain in right hip M25.551 an d Self-care deficit in patient living alone R46.89 [facility] [address] [facility] [id number] [address] [place] [phone] Jan, Other chronic pain G89.29 ; Pain in left hip M25.552 and Slow transit constipation K59.01 [facility] [address] [id number] [address] [place] [phone] Jan, [facility] [address] [facility] [id number] [address] [place] [address] Dec, Other depression F32.89 ; Co nstipation, unspecified constipation type K59.00 and Insomnia, unspecified type G47.00 [facility] [address] [facility] [id number] [address] [place] [address] Nov, Reactive depression F32.9 ; Chronic idiopathic constipation K59.04 ; Generalized anxiety disorder F41.1 ; Coarse tremors G25.2 ; Gastroesophageal reflux disease without esophagitis K21.9 ; Dysthymic disorder F34.1 ; Vitamin deficiency, unspecified E56.9 and Primary insomnia F51.01 [place] [address] [address] Nov, [place] [address] [address] Nov, [place] [address] [address] Nov, [place] [address] [address] Nov, Reactive depression F32.9 ; Essential hypertension I10 ; Generalized anxiety disorder F41.1 ; Atherosclerotic heart disease of [place] 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 ; Pain in right hip M25.551 ; Other chronic pain G89.29 ; Chronic idiopathic constipation K59.04 ; Primary insomnia F51.01 ; Coarse tremors G25.2 ; Gastroesophageal reflux disease without esophagitis K21.9 ; Iron deficiency anemia secondary to inadequate dietary iron intake D50.8 and Vitamin deficiency, unspecified E56.9 [place] [address] [address] Oct, [place] [address] [address] Oct, [place] [address] [address] Oct, [address] [address] Oct, Generalized anxiety disorder F41.1 ; Poor appetite R63.0 ; Dehydration E86.0 and Failure to thrive in adult R62.7 [place] [address] [address] Oct, Generalized anxiety disorder F41.1 and Failure to thrive in adult R62.7 [facility] [address] [facility] [id number] [address] [place] [address] Oct, [facility] [address] [facility] [id number] [address] [place] [address] Oct, [facility] [address] [facility] [id number] [address] [place] [address] Sep, Vaginal discharge N89.8 and Acute cystitis with hematuria N30.01 [facility] [address] [facility] [id number] [address] [place] [address] Sep, [facility] [address] [facility] [id number] [address] [place] [address] Sep, [facility] [address] [facility] [id number] [address] [place] [address] Sep, Dysthymic disorder F34.1 ; A cute vaginitis N76.0 ; Dysuria R30.0 and Vaginal yeast infection B37.3 [facility] [address] [facility] [id number] [address] [place] [address] Aug, [facility] [address] [facility] [id number] [address] [place] [address] Aug, [facility] [address] [facility] [id number] [address] [place] [address] Aug, Foul smelling urine R82.90 ; Rapid heart rate R00.0 and Flatulence R14.3 [facility] [address] [facility] [id number] [address] [place] [address] Aug, [facility] [address] [facility] [id number] [address] [place] [address] Jul, Constipation, unspecified co nstipation type K59.00 ; Weak R53.1 ; Poor appetite R63.0 ; Coronary artery disease involving [place] heart without angina pectoris, unspecified vessel or lesion type I25.10 ; Fatigue, unspecified type R53.83 ; Urinary incontinence, unspecified type R32 and Insomnia, unspecified type G47.00 [facility] [address] [facility] [id number] [address] [place] [address] Jul, [facility] [address] [facility] [id number] [address] [place] [address] Jun, Dysuria R30.0 [facility] [address] [facility] [id number] [address] [place] [address] Jun, [facility] [address] [facility] [id number] [address] [place] [address] Jun, Urinary tract infection, sit e not specified N39.0 ; Acute vaginitis N76.0 and Diarrhea, unspecified type R19.7 [facility] [address] [place] [id number] [address] [place] [address] May, [facility] [address] [facility] [id number] [address] [place] [address] April, [facility] [address] [place] [id number] [address] [place] [id number] April, Encounter for dental examina tion Z01.20 [facility] [address] [place] [id number] [address] [place] [address] April, [facility] [address] [place] [id number] [address] [place] [address] April, Tremor R25.1 and Episodic te nsion-type headache, not intractable G44.219 [facility] [address] [facility] [id number] [address] [place] [address] Mar, [facility] [address] [place] [id number] [address] [place] [address] Jan, Mood disorder F39 [facility] [address] [facility] [id number] [address] [place] [address] Jan, [facility] [address] [place] [id number] [address] [place] [address] Jan, [facility] [address] [id number] [address] [place] [id number] Jan, [facility] [address] [facility] [id number] [address] [place] [address] Jan, [facility] [address] [facility] [id number] [address] [place] [address] Jan, [facility] [address] [facility] [id number] [address] [place] [address] Jan, [facility] [address] [facility] [id number] [address] [place] [address] Dec, Acute diarrhea R19.7 [facility] [address] [facility] [id number] [address] [place] [address] Dec, [facility] [address] [facility] [id number] [address] [place] [address] Dec, [facility] [address] [facility] [id number] [address] [place] [phone] Dec, [facility] [address] [facility] [id number] [address] [place] [address] Dec, N&V (nausea and vomiting) R1 1.2 [facility] [address] [facility] [id number] [address] [place] [address] Dec, Generalized anxiety disorder F41.1 [facility] [address] [facility] [id number] [address] [place] [address] Dec, Generalized anxiety disorder F41.1 [facility] [address] [facility] [id number] [address] [place] [address] Nov, Post concussion syndrome F07 .81 [facility] [address] [facility] [id number] [address] [place] [address] Nov, Generalized anxiety disorder F41.1 [facility] [address] [facility] [id number] [address] [place] [address] Nov, [facility] [address] [place] [id number] [place] [address] Nov, Generalized anxiety disorder F41.1 [facility] [address] [id number] [address] [place] [id number] Oct, Dental caries K02.9 [facility] [address] [place] [id number] [place] [phone] Oct, [facility] [address] [facility] [id number] [address] [place] [address] [id number] Oct, Dental examination Z01.20 [facility] [address] [id number] Oct, 2015 Encounter for dental examina tion Z01.20 [facility] [address] [address] Oct, CAD (coronary artery disease ) I25.10 [facility] [address] [place] [id number] [address] [place] [address] Sep, Generalized anxiety disorder F41.1 [facility] [address] [address] Sep, [facility] [address] [address] Sep, Rash and other nonspecific s kin eruption R21 and Yeast vaginitis B37.3 [facility] [address] [place] [id number] [address] [place] [address] Sep, Generalized anxiety disorder F41.1 [facility] [address] [address] Aug, Insect bites 919.4 and Hemor rhoids 455.6 [facility] [address] [place] [id number] [address] [place] [address] Aug, Generalized anxiety disorder 300.02 [facility] [address] [place] [address] 08 Aug, 2015 [facility] [address] [facility] [id number] [address] [place] [address] Aug, [facility] [address] [place] [id number] [address] [place] [address] Aug, Generalized anxiety disorder 300.02 ; No condition on [place] II V71.09 ; Heart problem 429.9 and Hypertension 401.9 [facility] [address] [place] [id number] [address] [place] [address] Aug, [facility] [address] [facility] [id number] [address] [place] [phone] Jul, [facility] [address] [place] [id number] [address] [place] [phone] Jul, [facility] [address] [place] [id number] [address] [place] [address] Jul, [facility] [address] [place] [id number] [address] [place] [id number] Jul, [facility] [address] [place] [id number] [address] [place] [phone] Jul, Rash 782.1 [facility] [address] [place] [id number] [address] [place] [address] Jul, UTI (urinary tract infection ) 599.0 [facility] [address] [place] [id number] [address] [place] [id number] Jul, [facility] [address] [place] [id number] [address] [place] [address] Jun, Dysthymia 300.4 and Anxiety 300.00 [facility] [address] [place] [id number] [address] [place] [phone] Jun, 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 [facility] [address] [place] [id number] [address] [place] [address] May, [facility] [place] [facility] [address] [id number] [address] [place] [address] May, [facility] [address] [id number] [address] [place] [address] May, Unspecified breast screening V76.10 [facility] [address] [id number] [address] [place] [address] [id number] May, Dental examination V72.2 [facility] [address] [id number] [address] [place] [phone] April, [facility] [address] [id number] [address] [place] [phone] April, [facility] [address] [id number] [address] [place] [address] [id number] April, Dental examination V72.2 [facility] [address] [id number] [address] [place] [id number] April, Dental examination V72.2 [facility] [address] [id number] [address] [place] [phone] Mar, [facility] [address] [id number] [address] [place] [phone] Mar, [facility] [address] [id number] [address] [place] [phone] Jan, [facility] [address] [id number] [address] [place] [phone] Jan, [facility] [address] [id number] [address] [place] [address] Jan, [facility] [address] [id number] [address] [place] [phone] Jan, [facility] [address] [id number] [address] [place] [phone] Jan, [facility] [address] [id number] [address] [place] [phone] Jan, [facility] [place] [facility] [address] [id number] [address] [place] [address], [place] [address] 13 Jan, 2015 [facility] [address] [id number] [address] [place] [address], [place] [address] 13 Jan, 2015 [facility] [address] [id number] [address] [place] [address], [place] [address] 11 Jan, 2015 [facility] [place] [facility] [address] [id number] [address] [place] [address], [place] [address] Jan, [facility] [address] [id number] [address] [place] [address], [place] [address] Jan, [facility] [address] [id number] [address] [place] [address], [place] [address] Jan, [facility] [address] [id number] [address] [place] [address], [place] [address] Jan, [facility] [address] [id number] [address] [place] [address], [place] [address] Jan, [facility] [address] [id number] [address] [place] [address], [place] [address] Jan, [facility] [address] [id number] [address] [place] [address], [place] [address] Jan, 2014 [facility] [address] [id number] [address] [place] [address], [place] [address] Jan, [facility] [place] [facility] [address] [id number] [address] [place] [address], [place] [address] Jan, 2014 [facility] [place] [facility] [address] [id number] [address] [place] [address], [place] [address] Jan, [facility] [place] [facility] [address] [id number] [address] [place] [address], [place] [address] Jan, [facility] [place] [facility] [address] [id number] [address] [place] [address], [place] [address] Jan, 2014 [facility] [place] [facility] [address] [id number] [address] [place] [address], [place] [address] Jan, [facility] [address] [id number] [address] [place] [address], [place] [address] Dec, [facility] [address] [id number] [address] [place] [address], [place] [address] Dec, [facility] [address] [id number] [address] [place] [address], [place] [address] Dec, [facility] [address] [id number] [address] [place] [address], [place] [address] Dec, [facility] [address] [id number] [address] [place] [address], [place] [address] Nov, [facility] [address] [id number] [address] [place] [address], [place] [address] Nov, [facility] [address] [id number] [address] [place] [address], [place] [address] Nov, [facility] [address] [id number] [address] [place] [address], [place] [address] Nov, [facility] [address] [id number] [address] [place] [address], [place] [address] Nov, [facility] [address] [id number] [address] [place] [address], [place] [address] Nov, [facility] [address] [id number] [address] [place] [address], [place] [address] Nov, [facility] [address] [id number] [address] [place] [address], [place] [address] Oct, [facility] [address] [id number] [address] [place] [address], [place] [address] Oct, [facility] [address] [id number] [address] [place] [address], [place] [address] Oct, [facility] [address] [id number] [address] [place] [address], [place] [address] Oct, [facility] [place] [facility] [address] [id number] [address] [place] [address], [place] [address] Oct, [facility] [place] [facility] [address] [id number] [address] [place] [address], [place] [address] Oct, [facility] [place] [facility] [address] [id number] [address] [place] [address], [place] [address] Oct, [facility] [place] [facility] [address] [id number] [address] [place] [address], [place] [address] Oct, [facility] [place] [facility] [address] [id number] [address] [place] [address], [place] [address] Oct, [facility] [place] [facility] [address] [id number] [address] [place] [address], [place] [address] Oct, [facility] [place] [facility] [address] [id number] [address] [place] [address], [place] [address] Oct, [facility] [place] [facility] [address] [id number] [address] [place] [address], [place] [address] Oct, [facility] [place] [facility] [address] [id number] [address] [place] [address], [place] [address] Sep, [facility] [place] [facility] [address] [id number] [address] [place] [address], [place] [address] Sep, [facility] [place] [facility] [address] [id number] [address] [place] [address], [place] [address] Sep, [facility] [place] [facility] [address] [id number] [address] [place] [address], [place] [address] Sep, [facility] [place] [facility] [address] [id number] [address] [place] [address], [place] [address] Jul, [facility] [place] [facility] [address] [id number] [address] [place] [address], [place] [address] Jul, [facility] [place] [facility] [address] [id number] [address] [place] [address], [place] [address] Jul, [facility] [place] [facility] [address] [id number] [address] [place] [address], [place] [address] Jul, [facility] [address] [id number] [facility] [place] [address] Jun, [facility] [address] [id number] [address] [place] [address], [place] [address] Jun, [facility] [address] [id number] [address] [place] [address], [place] [address] Jun, [facility] [address] [id number] [address] [place] [address], [place] [address] Jun, [facility] [address] [id number] [address] [place] [address], [place] [address] May, [facility] [address] [id number] [address] [place] [address], [place] [address] May, [facility] [address] [id number] [address] [place] [address], [place] [address] April, [facility] [address] [id number] [address] [place] [address], [place] [address] April, [facility] [address] [id number] [address] [place] [address], [place] [address] April, [facility] [address] [id number] [address] [place] [address], [place] [address] April, [facility] [address] [id number] [address] [place] [address], [place] [address] April, [facility] [place] [facility] [address] [id number] [address] [place] [address], [place] [address] April, [facility] [place] [facility] [address] [id number] [address] [place] [address], [place] [address] April, [facility] [address] [id number] [address] [place] [address], [place] [address] April, [facility] [address] [id number] [address] [place] [address], [place] [address] April, [facility] [address] [id number] [facility] [place] [address] Mar, [facility] [address] [id number] [address] [place] [address], [place] [address] Mar, [facility] [address] [id number] [address] [place] [address], [place] [address] Mar, [facility] [address] [id number] [address] [place] [address], [place] [address] Mar, [facility] [address] [id number] [address] [place] [address], [place] [address] Jan, [facility] [address] [id number] [address] [place] [address], [place] [address] Jan, [facility] [address] [id number] [address] [place] [address], [place] [address] Jan, [facility] [address] [id number] [address] [place] [address], [place] [address] Jan, [facility] [address] [id number] [address] [place] [address], [place] [address] Jan, [facility] [address] [id number] [address] [place] [address], [place] [address] Jan, [facility] [address] [id number] [address] [place] [address], [place] [address] Jan, [facility] [address] [id number] [address] [place] [address], [place] [address] Jan, [facility] [address] [id number] [address] [place] [address], [place] [address] Jan, [facility] [address] [id number] [address] [place] [address], [place] [address] Jan, [facility] [address] [id number] [address] [place] [address], [place] [address] Jan, [facility] [address] [id number] [address] [place] [address], [place] [address] Jan, [facility] [address] [id number] [address] [place] [address], [place] [address] Dec, [facility] [address] [id number] [address] [place] [address], [place] [address] Dec, [facility] [address] [id number] [address] [place] [address], [place] [address] Dec, [facility] [address] [id number] [address] [place] [address], [place] [address] Dec, [facility] [address] [id number] [address] [place] [address], [place] [address] Nov, [facility] [address] [id number] [address] [place] [address], [place] [address] Nov, [facility] [address] [id number] [address] [place] [address], [place] [address] Nov, [facility] [address] [id number] [address] [place] [address], [place] [address] Nov, [facility] [address] [id number] [address] [place] [address], [place] [address] Oct, [facility] [address] [id number] [address] [place] [address], [place] [address] Oct, [facility] [address] [id number] [address] [place] [address], [place] [address] Sep, [facility] [address] [id number] [address] [place] [address], [place] [address] Sep, [facility] [address] [id number] [address] [place] [address], [place] [address] Jul, [facility] [address] [id number] [address] [place] [address], [place] [address] Jul, [facility] [address] [id number] [address] [place] [address], [place] [address] Jun, [facility] [address] [id number] [address] [place] [address], [place] [address] Jun, [facility] [address] [id number] [address] [place] [address], [place] [address] Jun, [facility] [address] [id number] [address] [place] [address], [place] [address] May, [facility] [address] [id number] [address] [place] [address], [place] [address] May, [facility] [address] [id number] [address] [place] [address], [place] [address] May, [facility] [address] [id number] [address] [place] [address], [place] [address] May, [facility] [address] [id number] [address] [place] [address], [place] [address] May, [facility] [address] [id number] [address] [place] [address], [place] [address] April, [facility] [address] [id number] [address] [place] [address], [place] [address] April, [facility] [address] [id number] [address] [place] [address], [place] [address] April, [facility] [address] [id number] [address] [place] [address], [place] [address] April, [facility] [address] [id number] [address] [place] [address], [place] [address] April, [facility] [address] [id number] [address] [place] [address], [place] [address] April, [facility] [address] [id number] [address] [place] [address], [place] [address] Mar, [facility] [address] [id number] [address] [place] [address], [place] [address] Mar, [facility] [address] [id number] [address] [place] [address], [place] [address] Jan, [facility] [address] [id number] [address] [place] [address], [place] [address] Jan, [facility] [address] [id number] [address] [place] [address], [place] [address] Jan, [facility] [address] [id number] [address] [place] [address], [place] [address] Jan, [facility] [address] [id number] [address] [place] [address], [place] [address] Jan, [facility] [address] [id number] [address] [place] [address], [place] [address] Jan, [facility] [address] [id number] [address] [place] [address], [place] [address] Jan, [facility] [address] [id number] [address] [place] [address], [place] [address] Jan, [facility] [address] [id number] [address] [place] [address], [place] [address] Jan, [facility] [address] [id number] [address] [place] [address], [place] [address] Jan, [facility] [address] [id number] [address] [place] [address], [place] [address] Jan, [facility] [address] [id number] [address] [place] [address], [place] [address] Dec, [facility] [address] [id number] [address] [place] [address], [place] [address] Nov, [facility] [address] [id number] [address] [place] [address], [place] [address] Nov, [facility] [address] [id number] [address] [place] [address], [place] [address] Nov, [facility] [address] [id number] [address] [place] [address], [place] [address] Nov, [facility] [address] [id number] [address] [place] [address], [place] [address] 21 Nov, 2012 [facility] [address] [id number] [address] [place] [address], [place] [address] 20 Nov, 2012 [facility] [address] [id number] [address] [place] [address], [place] [address] 20 Nov, 2012 [facility] [address] [id number] [address] [place] [address], [place] [address] 19 Nov, 2012 [facility] [address] [id number] [address] [place] [address], [place] [address] 19 Nov, 2012 [facility] [address] [id number] [address] [place] [address], [place] [address] 18 Nov, 2012 [facility] [address] [id number] [address] [place] [address], [place] [address] 18 Nov, 2012 [facility] [address] [id number] [address] [place] [address], [place] [address] Nov, [facility] [address] [id number] [address] [place] [address], [place] [address] Nov, [facility] [address] [id number] [address] [place] [address], [place] [address] Oct, [facility] [address] [id number] [address] [place] [address], [place] [address] Oct, [facility] [address] [id number] [address] [place] [address], [place] [address] Oct, [facility] [address] [id number] [address] [place] [address], [place] [address] Sep, [facility] [address] [id number] [address] [place] [address], [place] [address] Sep, [facility] [address] [id number] [address] [place] [address], [place] [address] Sep, [facility] [address] [id number] [address] [place] [address] 10 Sep, 2012 [facility] [address] [id number] [address] [place] [address], [place] [address] 27 Aug, 2012 [facility] [address] [id number] [address] [place] [address], [place] [address] 20 Aug, 2012 [facility] [address] [id number] [address] [place] [address], [place] [address] 24 Jul, 2012 [facility] [address] [id number] [address] [place] [address], [place] [address] May, [facility] [address] [id number] [address] [place] [address], [place] [address] May, [facility] [address] [id number] [address] [place] [address], [place] [address] May, [facility] [address] [id number] [address] [place] [address], [place] [address] April, [facility] [address] [id number] [address] [place] [address], [place] [address] Mar, [facility] [address] [id number] [address] [place] [address], [place] [address] Mar, [facility] [address] [id number] [address] [place] [address], [place] [address] Mar, [facility] [address] [id number] [address] [place] [address], [place] [address] Jan, [facility] [address] [id number] [address] [place] [address], [place] [address] Jan, [facility] [address] [id number] [address] [place] [address], [place] [address] Jan, [facility] [address] [id number] [address] [place] [address], [place] [address] Dec, [facility] [address] [id number] [address] [place] [address], [place] [address] Dec, [facility] [address] [id number] [address] [place] [address], [place] [address] 04 Dec, 2011 [facility] [address] [id number] [address] [place] [address], [place] [address] Dec, [facility] [address] [id number] [address] [place] [address], [place] [address] Nov, [facility] [address] [id number] [address] [place] [address] 15 Nov, 2011 [facility] [address] [id number] [address] [place] [address] Nov, [facility] [address] [id number] [address] [place] [address], [place] [address] Oct, [facility] [address] [id number] [address] [place] [address], [place] [address] 31 Sep, 2011 [facility] [address] [id number] [address] [place] [address], [place] [address] Sep, [facility] [address] [id number] [address] [place] [address], [place] [address] Sep, [facility] [address] [id number] [address] [place] [address] Nov, [facility] [address] [id number] [address] [place] [address], [place] [address] Oct, [facility] [address] [id number] [address] [place] [address] Oct, [facility] [address] [id number] [address] [place] [address] 18 Oct, 2010 [facility] [address] [id number] [address] [place] [address], [place] [address] 16 Oct, 2010 [facility] [address] [id number] [address] [place] [address] 11 Sep, 2010 [facility] [address] [id number] [address] [place] [address] April, [facility] [address] [id number] [address] [place] [address] Nov, [facility] [address] [id number] [address] [place] [address] Nov, [facility] [address] [id number] [address] [place] [address] Nov, [facility] [address] [facility] [id number] [address] [place] [address] Nov, [facility] [address] [facility] [id number] [address] [place] [address] Nov, [facility] [address] [facility] [id number] [address] [place] [address] Oct, [facility] [address] [facility] [id number] [address] [place] [address] Oct, [facility] [address] [facility] [id number] [address] [place] [address] Sep, [facility] [address] [facility] [id number] [address] [place] [address] Jan, IMMUNIZATIONS No Known Immunizations SOCIAL HISTORY [...] History right hip replacement w/ Dr. Bruce 12 Surgical History triple bypass surgery 2003 Surgical History S/P left hip IM Nail (Intertrechanteric hip fx) 04/28/16 Surgical History egd 08/2019 Hospitalization History surgeries Hospitalization History Hypertension Hospitalization History ER for a concussion 11/24/15 Hospitalization History Intertrechanteric hip fx 04/27/16 [facility] treatments in past in [place] oct 2016 [facility]
--- OUTSIDE RECORDS SUMMARY | 2020-04-18 20:14 | XMS REPORT ---
Author Author Ave AGUIRRE Organization [facility] Address [address] [place] [address] Care Team Providers Care Wireless Watcher Name Role Phone WOLF AGUIRRE Unavailable PROBLEMS Type Condition ICD9-CM Code [id number] Code Onset Dates Condition S tatus SNOMED Code Problem Generalized anxiety disorder F41.1 A ctive 48214454 Problem Failure to thrive in adult R62.7 Act mishel [id number] Problem Dysthymic disorder F34.1 Active 7 0385807 Problem Iron deficiency anemia secondary to inadequate d ietary iron intake D50.8 Active 689852338 Problem Poor appetite R63.0 Active 301045 06 Problem Reactive depression F32.9 Active 34914302 Problem Coarse tremors G25.2 Active 93004 004 Problem Oropharyngeal dysphagia R13.12 Active 69084194 Problem Sundowning F05 Active 982716329 Problem 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 Active 1819 3002 Problem Constipation, unspecified constipation type K59.00 Active 65159890 Problem Vascular dementia with behavior disturbance F01.51 Active [id number] Problem Essential hypertension I10 Active 56535180 Problem Gastroesophageal reflux disease without esophagitis K21.9 Active 265948751 Problem Other chronic pain G89.29 Active 8 9585496 Problem Insomnia, unspecified type G47.00 Act mishel [id number] Problem Severe episode of recurrent major depressive disorder, without psychotic features F33.2 Active 97417875 Problem Slow transit constipation K59.01 Acti ve 23956748 Problem Mood disorder F39 Active 413365 05 Problem Irritable bowel syndrome with diarrhea K58.0 Active 093954676 Problem 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 Active 7011493 04 Problem Obsessive thinking F42.8 Active 6 3836608 Problem Dementia in other diseases c lassified elsewhere with behavioral disturbance F02.81 Active 923143950 Problem HTN (hypertension) I10 Active 3 3124247 Problem Other chronic pain G89.29 Active 8 4430915 Problem Dyspepsia K30 Active 006530709 Problem Atherosclerotic heart diseas e of [place] 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 Active 680282909215401 Problem Primary insomnia F51.01 Active 397 2004 Problem Alzheimer''s disease with late onset G30.1 Active 224027193 Problem Acute on chronic systolic congestive heart failure I50.23 Active 633239975 Problem Coronary artery disease invo lving [place] coronary artery of [place] heart without angina pectoris I25.10 Active 1641 875010602 Problem Restless legs G25.81 Active 153709 08 ALLERGIES No Information ENCOUNTERS Encounter Location Date Diagnosis [facility] [address] [facility] [id number] [address] [place] [phone] 02 Mar, 2020 [facility] [address] [facility] [id number] [address] [place] [phone] 27 Jan, [facility] [address] [id number] Jan, Generalized anxiety disorder F41.1 and Pressure sore on ankle, right, unstageable L89.510 [facility] [address] [facility] [id number] [address] [place] [phone] 25 Jan, 2020 [facility] [address] [facility] [id number] [address] [place] [phone] Jan, [facility] [address] [facility] [id number] [address] [place] [phone] 23 Jan, 2020 Weakness R53.1 [facility] [address] [facility] [id number] [address] [place] [phone] 20 Jan, 2020 [facility] [address] [facility] [id number] [address] [place] [id number] 10 Jan, 2020 Generalized anxiety disorder F41.1 [facility] [address] [facility] [id number] [address] [place] [phone] 08 Jan, 2020 Nausea R11.0 [facility] [address] [facility] [id number] [address] [place] [phone] 03 Jan, 2020 Dyspepsia K30 [facility] [address] [facility] [id number] [address] [place] [phone] Jan, [facility] [address] [facility] [id number] [address] [place] [phone] Jan, [facility] [address] [facility] [id number] [address] [place] [phone] Jan, [facility] [address] [facility] [id number] [address] [place] [phone] Jan, [facility] [address] [facility] [id number] [address] [place] [phone] Jan, [facility] [address] [id number] Jan, Generalized anxiety disorder F41.1 [place] [address] [facility] [id number] [address] [place] [phone] Jan, [facility] [address] [id number] Jan, Coronary artery disease involving [place] coronary artery of [place] heart without angina pectoris I25.10 [facility] [address] [facility] [id number] [address] [place] [phone] 10 Jan, 2020 [facility] [address] [facility] [id number] [address] [place] [phone] Dec, Atherosclerotic heart diseas e of [place] 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 [facility] [address] [facility] [id number] [address] [place] [phone] Dec, [facility] [place] [address] [place] [id number] Dec, Mood disorder F39 ; Acute on chronic systolic congestive heart failure I50.23 ; Obsessive thinking F42.8 and HTN (hypertension) I10 [facility] [address] [id number] Nov, Cough R05 [facility] [address] [facility] [id number] [address] [place] [phone] Nov, [facility] [address] [id number] [address] [place] [phone] Oct, [facility] [place] [address] [place] [id number] Oct, Obsessive thinking F42.8 ; Generalized anxiety disorder F41.1 ; Primary insomnia F51.01 and Restless legs G25.81 [facility] [address] [id number] [address] [place] [phone] Sep, [facility] [address] [id number] Aug, Coronary artery disease involving [place] coronary artery of [place] heart without angina pectoris I25.10 [facility] [address] [id number] [address] [place] [phone] Jul, [facility] [address] [id number] [address] [place] [phone] Jul, [facility] [address] [id number] [address] [place] [phone] Jul, [facility] [address] [id number] [address] [place] [phone] Jul, [facility] [address] [id number] [address] [place] [phone] Jul, [facility] [address] [id number] Jun, Acute on chronic systolic congestive heart failure I50.23 and Atherosclerotic heart disease of [place] 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 [facility] [address] [id number] [address] [place] [phone] Jun, [facility] [address] [id number] [address] [place] [phone] Jun, [facility] [address] [id number] [address] [place] [phone] Jun, [facility] [address] [id number] [address] [place] [phone] Jun, [facility] [address] [id number] [address] [place] [phone] Jun, [facility] [address] [id number] [address] [place] [phone] Jun, [facility] [address] [id number] [address] [place] [phone] Jun, [facility] [id number] May, Pressure injury of right ankle, stage 2 L89.512 and Constipation, unspecified constipation type K59.00 [facility] [address] [id number] [address] [place] [phone] May, [facility] [id number] April, Constipation, unspecified constipation type K59.00 ; Pressure injury of right ankle, stage 1 L89.511 and Vascular dementia with behavior disturbance F01.51 [facility] [address] [id number] [address] [place] [id number] Mar, [facility] [address] [id number] [address] [place] [id number] Mar, [facility] [address] [id number] [address] [place] [phone] Mar, [facility] [address] [id number] [address] [place] [phone] Mar, [facility] [address] [id number] [address] [place] [phone] Jan, [facility] [address] [id number] [address] [place] [phone] Jan, [facility] [address] [id number] [address] [place] [phone] Jan, [facility] [place] [address] [id number] Jan, Pneumonia due to infectious organism, unspecified laterality, unspecified part of lung J18.9 ; Fall from bed, sequela W06.XXXS ; Hyponatremia E87.1 and Slow transit constipation K59.01 [facility] [id number] [place] [phone] Jan, [facility] [address] [place] [id number] [address] [place] [phone] Jan, [place] [address] [place] [id number] [address] [place] [phone] Jan, [place] [address] [place] [id number] [address] [place] [phone] Dec, [facility] [address] [id number] Dec, Other depression F32.89 ; Alzheimer''s disease with late onset G30.1 and Dementia in other diseases classified elsewhere with behavioral disturbance F02.81 [place] [address] [place] [phone] Dec, [facility] [address] [place] [id number] Dec, [facility] [address] [id number] Nov, Generalized anxiety disorder F41.1 and Obsessive thinking F42.8 [place] [address] [place] [phone] Nov, [place] [address] [place] [id number] [address] [place] [phone] Oct, [place] [address] [place] [id number] [address] [place] [id number] Oct, [place] [address] [place] [id number] [address] [place] [phone] Oct, [facility] [address] [place] [id number] [address] [place] [phone] Oct, [facility] [address] [id number] [address] [place] [phone] Oct, [facility] [id number] Oct, Generalized anxiety disorder F41.1 and Obsessive thinking F42.8 [facility] [address] [id number] [address] [place] [phone] Sep, [facility] [address] [id number] [address] [place] [phone] Sep, [facility] [address] [id number] [address] [place] [phone] Sep, [facility] [address] [id number] [address] [place] [phone] Sep, [facility] [place] [id number] Sep, Generalized anxiety disorder F41.1 ; Obsessive thinking F42.8 and Mood disorder F39 [facility] [address] [id number] [address] [place] [phone] Sep, [facility] [address] [id number] [address] [place] [phone] Sep, [facility] [place] [id number] Sep, [facility] [address] [id number] [address] [place] [phone] Sep, [facility] [address] [id number] [address] [place] [phone] Sep, [facility] [place] [id number] Sep, Obsessive thinking F42.8 [facility] [address] [id number] [address] [place] [phone] Sep, [facility] [address] [id number] [address] [place] [phone] Sep, [facility] [address] [id number] [address] [place] [phone] Aug, [facility] [address] [id number] [address] [place] [phone] Aug, [facility] [address] [facility] [id number] [address] [place] [phone] Aug, Positive urine drug screen R 82.5 [facility] [place] [id number] Aug, [facility] [address] [facility] [id number] [address] [place] [phone] Aug, [facility] [address] [facility] [id number] [address] [place] [phone] Aug, [facility] [address] [facility] [id number] [address] [place] [phone] Aug, Irritable bowel syndrome wit h diarrhea K58.0 [facility] [address] [facility] [id number] [address] [place] [phone] Aug, [facility] [address] [facility] [id number] [address] [place] [phone] Aug, Obsessive thinking F42.8 ; I nsomnia, unspecified type G47.00 and Other chronic pain G89.29 [facility] [id number] Aug, Obsessive thinking F42.8 ; Irritable bowel syndrome with diarrhea K58.0 ; Pain in right foot M79.671 ; Pain of left foot M79.672 and Gastroesophageal reflux disease without esophagitis K21.9 [facility] [address] [facility] [id number] [address] [place] [phone] Aug, [facility] [address] [facility] [id number] [address] [place] [phone] Jul, [facility] [address] [facility] [id number] [address] [place] [phone] Jun, [facility] [address] [facility] [id number] [address] [place] [phone] Jun, [facility] [place] [id number] Jun, Left lower quadrant pain R10.32 and Left leg pain M79.605 [facility] [address] [facility] [id number] [address] [place] [address] Jun, [facility] [place] [id number] Jun, Pain in left hip M25.552 ; Pain in right hip M25.551 and Primary insomnia F51.01 [facility] [address] [facility] [id number] [address] [place] [phone] Jun, [facility] [place] [id number] May, [facility] [address] [place] [id number] [address] [place] [phone] May, [facility] [address] [place] [id number] [address] [place] [id number] May, [facility] [place] [id number] May, Mood disorder F39 [facility] [address] [place] [id number] [address] [place] [phone] May, [facility] [address] [place] [id number] [address] [place] [phone] April, [facility] [address] [id number] April, Generalized anxiety disorder F41.1 ; Obsessive thinking F42.8 and Insomnia, unspecified type G47.00 [facility] [address] [facility] [id number] [address] [place] [address] April, [facility] [address] [place] [id number] [address] [place] [phone] April, Rash of face R21 [facility] [address] [facility] [id number] [address] [place] [phone] Mar, [facility] [address] [facility] [id number] [address] [place] [phone] Mar, [facility] [address] [facility] [id number] [address] [place] [phone] Mar, [facility] [address] [facility] [id number] [address] [place] [phone] Jan, [facility] [address] [place] [id number] [address] [place] [phone] Jan, [facility] [place] [id number] Jan, Constipation, unspecified constipation type K59.00 and Other chronic pain G89.29 [facility] [address] [place] [id number] [address] [place] [phone] Jan, [facility] [place] [id number] Jan, Obsessive thinking F42.8 and Coarse tremors G25.2 [facility] [address] [id number] [place] [id number] Jan, [facility] [address] [id number] [place] [id number] Jan, [facility] [place] [id number] Jan, Generalized anxiety disorder F41.1 ; Obsessive thinking F42.8 ; Callus of foot L84 and 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 [facility] [address] [facility] [id number] [address] [place] [phone] Dec, Generalized anxiety disorder F41.1 and Severe episode of recurrent major depressive disorder, without psychotic features F33.2 [facility] [address] [place] [id number] [address] [place] [phone] Nov, [facility] [address] [place] [id number] [address] [place] [phone] Nov, [facility] [place] [id number] Nov, Oropharyngeal dysphagia R13.12 ; Generalized anxiety disorder F41.1 and 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 [facility] [address] [facility] [id number] [address] [place] [phone] Nov, [facility] [address] [id number] [place] [id number] Nov, [facility] [address] [facility] [id number] [address] [place] [phone] Nov, [facility] [address] [facility] [id number] [address] [place] [phone] Nov, [facility] [address] [facility] [id number] [address] [place] [phone] Oct, Constipation, unspecified co nstipation type K59.00 and Mood disorder F39 [facility] [address] [facility] [id number] [address] [place] [id number] Oct, [facility] [address] [id number] [place] [id number] Sep, [facility] [address] [id number] [place] [id number] Sep, [facility] [address] [id number] [place] [id number] Sep, [facility] [address] [id number] [place] [id number] Sep, [facility] [place] [id number] Sep, Generalized abdominal pain R10.84 [facility] [address] [facility] [id number] [address] [place] [phone] Sep, [facility] [address] [id number] [place] [id number] Sep, Generalized anxiety disorder F41.1 and P rimary insomnia F51.01 [facility] [address] [id number] [place] [facility] [place] [id number] Aug, [facility] [address] [id number] [place] [id number] Aug, Generalized anxiety disorder F41.1 [facility] [address] [facility] [id number] [address] [place] [phone] Jul, [facility] [place] [id number] Jul, Obsessive thinking F42.8 [facility] [address] [facility] [id number] [address] [place] [phone] Jul, Generalized anxiety disorder F41.1 and Irritable bowel syndrome with diarrhea K58.0 [facility] [address] [id number] [place] [facility] [place] [id number] Jul, Generalized anxiety disorder F41.1 [facility] [address] [id number] [place] [facility] [place] [id number] Jun, Generalized anxiety disorder F41.1 [facility] [address] [facility] [id number] [address] [place] [phone] May, [facility] [address] [id number] May, Generalized anxiety disorder F41.1 ; Irritable bowel syndrome with diarrhea K58.0 and Coarse tremors G25.2 [facility] [address] [facility] [id number] [address] [place] [phone] April, [facility] [address] [facility] [id number] [address] [place] [phone] April, [facility] [address] [facility] [id number] [address] [place] [phone] April, [facility] [address] [facility] [id number] [address] [place] [phone] Mar, [facility] [address] [id number] Mar, Severe episode of recurrent major depressive disorder, without psychotic features F33.2 and Pain in left hip M25.552 [facility] [address] [id number] [address] [place] [phone] Mar, [facility] [address] [id number] [address] [place] [phone] Mar, [facility] [address] [id number] [address] [place] [id number] Mar, [facility] [address] [id number] [address] [place] [phone] Mar, Pain in right hip M25.551 an d Self-care deficit in patient living alone R46.89 [facility] [address] [facility] [id number] [address] [place] [phone] Jan, Other chronic pain G89.29 ; Pain in left hip M25.552 and Slow transit constipation K59.01 [facility] [address] [facility] [id number] [address] [place] [phone] Jan, [facility] [address] [facility] [id number] [address] [place] [phone] Dec, Other depression F32.89 ; Co nstipation, unspecified constipation type K59.00 and Insomnia, unspecified type G47.00 [place] [address] [facility] [id number] [address] [place] [phone] Nov, Reactive depression F32.9 ; Chronic idiopathic constipation K59.04 ; Generalized anxiety disorder F41.1 ; Coarse tremors G25.2 ; Gastroesophageal reflux disease without esophagitis K21.9 ; Dysthymic disorder F34.1 ; Vitamin deficiency, unspecified E56.9 and Primary insomnia F51.01 [facility] [address] [facility] [id number] [address] [place] [phone] Nov, [facility] [address] [facility] [id number] [address] [place] [phone] Nov, [facility] [id number] [place] [phone] Nov, [facility] [address] [id number] Nov, Reactive depression F32.9 ; Essential hypertension I10 ; Generalized anxiety disorder F41.1 ; Atherosclerotic heart disease of [place] 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 ; Pain in right hip M25.551 ; Other chronic pain G89.29 ; Chronic idiopathic constipation K59.04 ; Primary insomnia F51.01 ; Coarse tremors G25.2 ; Gastroesophageal reflux disease without esophagitis K21.9 ; Iron deficiency anemia secondary to inadequate dietary iron intake D50.8 and Vitamin deficiency, unspecified E56.9 [facility] [address] [place] [id number] [place] [id number] Oct, [place] [address] [place] [id number] [place] [phone] Oct, [facility] [address] [address] [address] Oct, [facility] [address] [address] 16 Oct, 2016 Generalized anxiety disorder F41.1 ; Poor appetite R63.0 ; Dehydration E86.0 and Failure to thrive in adult R62.7 [facility] [address] [address] 07 Oct, 2016 Generalized anxiety disorder F41.1 and Failure to thrive in adult R62.7 [facility] [address] [place] [id number] [address] [place] [id number] Oct, [facility] [address] [address] Oct, [facility] [address] [id number] [address] [place] [id number] Sep, Vaginal discharge N89.8 and Acute cystitis with hematuria N30.01 [facility] [address] [address] Sep, [facility] [address] [address] Sep, [facility] [address] [address] Sep, Dysthymic disorder F34.1 ; A cute vaginitis N76.0 ; Dysuria R30.0 and Vaginal yeast infection B37.3 [facility] [address] [address] Aug, [facility] [address] [address] Aug, [facility] [address] [address] Aug, Foul smelling urine R82.90 ; Rapid heart rate R00.0 and Flatulence R14.3 [facility] [address] [address] Aug, [facility] [address] [address] Jul, Constipation, unspecified co nstipation type K59.00 ; Weak R53.1 ; Poor appetite R63.0 ; Coronary artery disease involving [place] heart without angina pectoris, unspecified vessel or lesion type I25.10 ; Fatigue, unspecified type R53.83 ; Urinary incontinence, unspecified type R32 and Insomnia, unspecified type G47.00 [facility] [address] [address] Jul, [facility] [address] [address] Jun, Dysuria R30.0 [place] [address] [address] Jun, [facility] [address] [address] Jun, Urinary tract infection, sit e not specified N39.0 ; Acute vaginitis N76.0 and Diarrhea, unspecified type R19.7 [facility] [address] [facility] [id number] [address] [place] [phone] May, [facility] [address] [facility] [id number] [address] [place] [id number] April, [facility] [address] [id number] [address] [place] [id number] April, Encounter for dental examina tion Z01.20 [facility] [address] [facility] [id number] [address] [place] [phone] April, [facility] [address] [facility] [id number] [address] [place] [id number] April, Tremor R25.1 and Episodic te nsion-type headache, not intractable G44.219 [facility] [address] [facility] [id number] [address] [place] [id number] Mar, [facility] [address] [facility] [id number] [address] [place] [phone] Jan, Mood disorder F39 [facility] [address] [facility] [id number] [address] [place] [phone] Jan, [facility] [address] [facility] [id number] [address] [place] [phone] Jan, [facility] [address] [facility] [id number] [address] [place] [phone] Jan, [facility] [address] [facility] [id number] [address] [place] [phone] Jan, [facility] [address] [facility] [id number] [address] [place] [phone] Jan, [facility] [address] [facility] [id number] [address] [place] [id number] Jan, [facility] [address] [id number] [address] [place] [phone] Dec, Acute diarrhea R19.7 [facility] [address] [facility] [id number] [address] [place] [phone] Dec, [facility] [address] [facility] [id number] [address] [place] [phone] Dec, [facility] [address] [facility] [id number] [address] [place] [phone] Dec, [facility] [address] [facility] [id number] [address] [place] [id number] Dec, N&V (nausea and vomiting) R1 1.2 [facility] [address] [facility] [id number] [address] [place] [phone] 04 Dec, 2015 Generalized anxiety disorder F41.1 [facility] [address] [facility] [id number] [address] [place] [phone] Dec, Generalized anxiety disorder F41.1 [facility] [address] [facility] [id number] [address] [place] [phone] Nov, Post concussion syndrome F07 .81 [facility] [address] [facility] [id number] [address] [place] [phone] Nov, Generalized anxiety disorder F41.1 [facility] [address] [facility] [id number] [address] [place] [phone] Nov, [facility] [address] [facility] [id number] [address] [place] [id number] Nov, Generalized anxiety disorder F41.1 [facility] [id number] [place] [id number] Oct, Dental caries K02.9 [facility] [address] [id number] [address] [place] [phone] Oct, [facility] [address] [id number] [address] [place] [address] [phone] Oct, Dental examination Z01.20 [facility] [address] [id number] [address] [place] [address] [id number] Oct, Encounter for dental examina tion Z01.20 [facility] [address] [place] [id number] [address] [place] [phone] Oct, CAD (coronary artery disease ) I25.10 [facility] [address] [place] [id number] [address] [place] [id number] Sep, Generalized anxiety disorder F41.1 [facility] [address] [address] Sep, [facility] [address] [address] Sep, Rash and other nonspecific s kin eruption R21 and Yeast vaginitis B37.3 [facility] [address] [address] Sep, Generalized anxiety disorder F41.1 [facility] [address] [place] [id number] [address] [place] [phone] Aug, Insect bites 919.4 and Hemor rhoids 455.6 [facility] [address] [place] [id number] [address] [place] [phone] Aug, Generalized anxiety disorder 300.02 [facility] [address] [place] [id number] [address] [place] [phone] 08 Aug, 2015 [facility] [address] [place] [id number] [address] [place] [phone] Aug, [facility] [address] [address] Aug, Generalized anxiety disorder 300.02 ; No condition on [place] II V71.09 ; Heart problem 429.9 and Hypertension 401.9 [facility] [address] [place] [id number] [address] [place] [phone] Aug, [facility] [id number] [place] [address] Jul, [facility] [address] [id number] [address] [place] [phone] Jul, [facility] [address] [id number] [address] [place] [phone] Jul, [facility] [address] [id number] [address] [place] [phone] Jul, [facility] [address] [id number] [address] [place] [phone] Jul, Rash 782.1 [facility] [address] [id number] [address] [place] [id number] Jul, UTI (urinary tract infection ) 599.0 [facility] [address] [id number] [address] [place] [id number] Jul, [facility] [address] [id number] [address] [place] [id number] Jun, Dysthymia 300.4 and Anxiety 300.00 [facility] [address] [id number] [address] [place] [phone] Jun, 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 [facility] [address] [id number] [address] [place] [phone] May, [facility] [address] [id number] [address] [place] [phone] May, [facility] [address] [id number] [address] [place] [phone] May, Unspecified breast screening V76.10 [facility] [address] [id number] [address] [place] [address] [id number] May, Dental examination V72.2 [facility] [address] [id number] [address] [place] [phone] April, [facility] [address] [id number] [address] [place] [phone] April, [facility] [address] [id number] [address] [place] [address] [id number] April, Dental examination V72.2 [facility] [address] [id number] [address] [place] [address] [id number] April, Dental examination V72.2 [facility] [address] [id number] [address] [place] [id number] 14 Mar, 2015 [facility] [address] [id number] [address] [place] [address], [place] [address] Mar, [facility] [address] [id number] [address] [place] [address], [place] [address] 25 Jan, 2015 [facility] [address] [id number] [address] [place] [id number] 25 Jan, 2015 [facility] [address] [id number] [address] [place] [phone] 18 Jan, 2015 [facility] [address] [id number] [address] [place] [id number] 18 Jan, 2015 [facility] [address] [id number] [address] [place] [id number] 16 Jan, 2015 [facility] [address] [id number] [address] [place] [id number] 16 Jan, 2015 [facility] [address] [id number] [address] [place] [phone] 13 Jan, 2015 [facility] [address] [id number] [address] [place] [id number] 13 Jan, 2015 [facility] [address] [id number] [address] [place] [id number] 11 Jan, 2015 [facility] [address] [id number] [address] [place] [phone] 11 Jan, 2015 [facility] [address] [id number] [address] [place] [phone] Jan, [facility] [address] [id number] [address] [place] [address], [place] [address] Jan, [facility] [address] [id number] [address] [place] [address], [place] [address] Jan, [facility] [address] [id number] [address] [place] [address], [place] [id number] Jan, [facility] [address] [id number] [address] [place] [address], [place] [address] Jan, [facility] [address] [id number] [address] [place] [address], [place] [address] Jan, [facility] [address] [id number] [address] [place] [address], [place] [id number] Jan, [facility] [address] [id number] [address] [place] [address], [place] [id number] Jan, [facility] [address] [id number] [address] [place] [address], [place] [id number] Jan, [facility] [address] [id number] [address] [place] [address], [place] [address] Jan, [facility] [address] [id number] [address] [place] [address], [place] [id number] Jan, [facility] [address] [id number] [address] [place] [address], [place] [address] Jan, [facility] [address] [id number] [address] [place] [address], [place] [id number] Dec, [facility] [address] [id number] [address] [place] [address], [place] [id number] Dec, [facility] [address] [id number] [address] [place] [phone] Dec, [facility] [address] [id number] [address] [place] [phone] Dec, [facility] [address] [id number] [address] [place] [address], [place] [id number] Nov, [facility] [address] [id number] [address] [place] [address], [place] [address] Nov, [facility] [address] [id number] [address] [place] [address], [place] [id number] Nov, [facility] [address] [id number] [address] [place] [address], [place] [id number] Nov, [facility] [address] [id number] [address] [place] [address], [place] [id number] 08 Nov, 2014 [facility] [address] [id number] [address] [place] [address], [place] [id number] Nov, [facility] [address] [id number] [address] [place] [address], [place] [address] Nov, [facility] [address] [id number] [address] [place] [address], [place] [address] Oct, [facility] [address] [id number] [address] [place] [address], [place] [id number] Oct, [facility] [address] [id number] [address] [place] [address], [place] [address] Oct, [facility] [address] [id number] [address] [place] [address], [place] [id number] Oct, [facility] [address] [id number] [address] [place] [address], [place] [address] Oct, [facility] [address] [id number] [address] [place] [address], [place] [id number] Oct, [facility] [address] [id number] [address] [place] [address], [place] [id number] Oct, [facility] [address] [id number] [address] [place] [address], [place] [id number] Oct, [facility] [address] [id number] [address] [place] [address], [place] [id number] Oct, [facility] [address] [id number] [address] [place] [address], [place] [id number] Oct, [facility] [address] [id number] [address] [place] [address], [place] [id number] Oct, [facility] [address] [id number] [address] [place] [address], [place] [address] Oct, [facility] [address] [id number] [address] [place] [address], [place] [id number] Sep, [facility] [address] [id number] [address] [place] [address], [place] [address] Sep, [facility] [address] [id number] [address] [place] [address], [place] [address] Sep, [facility] [address] [id number] [address] [place] [address], [place] [address] Sep, [facility] [address] [id number] [address] [place] [address], [place] [address] Jul, [facility] [address] [id number] [address] [place] [address], [place] [address] Jul, [facility] [address] [id number] [address] [place] [address], [place] [address] Jul, [facility] [address] [id number] [address] [place] [address], [place] [address] Jul, [facility] [address] [id number] [address] [place] [address], [place] [id number] Jun, [facility] [address] [id number] [address] [place] [address], [place] [address] Jun, [facility] [address] [id number] [address] [place] [address], [place] [address] Jun, [facility] [address] [id number] [address] [place] [address], [place] [address] Jun, [facility] [address] [id number] [address] [place] [address], [place] [address] May, [facility] [address] [id number] [address] [place] [address], [place] [address] May, [facility] [address] [id number] [address] [place] [address], [place] [address] April, [facility] [address] [id number] [address] [place] [address], [place] [address] April, [facility] [address] [id number] [address] [place] [address], [place] [id number] April, [facility] [address] [id number] [address] [place] [address], [place] [address] April, [facility] [address] [id number] [address] [place] [address], [place] [address] April, [facility] [address] [id number] [address] [place] [address], [place] [id number] April, [facility] [address] [id number] [address] [place] [address], [place] [address] April, [facility] [address] [id number] [address] [place] [address], [place] [address] April, [facility] [address] [id number] [address] [place] [address], [place] [id number] April, [facility] [address] [id number] [address] [place] [address], [place] [id number] Mar, [facility] [address] [id number] [address] [place] [address], [place] [address] Mar, [facility] [address] [id number] [address] [place] [address], [place] [id number] Mar, [facility] [address] [id number] [address] [place] [address], [place] [address] Mar, [facility] [address] [id number] [address] [place] [address], [place] [address] Jan, [facility] [address] [id number] [address] [place] [address], [place] [id number] Jan, [facility] [address] [id number] [address] [place] [address], [place] [id number] Jan, [facility] [address] [id number] [address] [place] [address], [place] [id number] Jan, [facility] [address] [id number] [address] [place] [address], [place] [id number] Jan, [facility] [address] [id number] [address] [place] [address], [place] [id number] Jan, [facility] [address] [id number] [address] [place] [address], [place] [id number] Jan, [facility] [address] [id number] [address] [place] [address], [place] [id number] Jan, [facility] [address] [id number] [address] [place] [address], [place] [id number] Jan, [facility] [address] [id number] [address] [place] [address], [place] [id number] Jan, [facility] [address] [id number] [address] [place] [address], [place] [id number] Jan, [facility] [address] [id number] [address] [place] [address], [place] [id number] Jan, [facility] [address] [id number] [address] [place] [address], [place] [id number] Dec, [facility] [address] [id number] [address] [place] [address], [place] [id number] Dec, [facility] [address] [id number] [address] [place] [address], [place] [id number] Dec, [facility] [address] [id number] [address] [place] [address], [place] [id number] Dec, [facility] [address] [id number] [address] [place] [address], [place] [id number] Nov, [facility] [address] [id number] [address] [place] [address], [place] [id number] Nov, [facility] [address] [id number] [address] [place] [address], [place] [id number] Nov, [facility] [address] [id number] [address] [place] [address], [place] [id number] Nov, [facility] [address] [id number] [address] [place] [address], [place] [id number] Oct, [facility] [address] [id number] [address] [place] [address], [place] [id number] Oct, [facility] [address] [id number] [address] [place] [address], [place] [id number] Sep, [facility] [address] [id number] [address] [place] [address], [place] [id number] Sep, [facility] [address] [id number] [address] [place] [address], [place] [id number] Jul, [facility] [address] [id number] [address] [place] [address], [place] [id number] Jul, [facility] [address] [id number] [address] [place] [address], [place] [id number] Jun, [facility] [address] [id number] [address] [place] [address], [place] [id number] Jun, [facility] [address] [id number] [address] [place] [address], [place] [id number] Jun, [facility] [address] [id number] [address] [place] [address], [place] [id number] May, [facility] [address] [id number] [address] [place] [address], [place] [id number] May, [facility] [address] [id number] [address] [place] [address], [place] [id number] May, [facility] [address] [id number] [address] [place] [address], [place] [id number] May, [facility] [address] [id number] [address] [place] [address], [place] [id number] May, [facility] [address] [id number] [address] [place] [address], [place] [id number] April, [facility] [address] [id number] [address] [place] [address], [place] [id number] April, [facility] [address] [id number] [address] [place] [address], [place] [id number] April, [facility] [address] [id number] [address] [place] [address], [place] [id number] April, [facility] [address] [id number] [address] [place] [address], [place] [id number] April, [facility] [address] [id number] [address] [place] [address], [place] [id number] April, [facility] [address] [id number] [address] [place] [address], [place] [id number] Mar, [facility] [address] [address] [id number] [address] [place] [address], [place] [id number] Mar, [facility] [address] [id number] [address] [place] [address], [place] [id number] Jan, [facility] [address] [id number] [address] [place] [address], [place] [id number] Jan, [facility] [address] [id number] [address] [place] [address], [place] [id number] Jan, [facility] [address] [id number] [address] [place] [address], [place] [id number] Jan, [facility] [address] [id number] [address] [place] [address], [place] [id number] Jan, [facility] [address] [id number] [address] [place] [address], [place] [id number] 12 Jan, 2013 [facility] [address] [id number] [address] [place] [address], [place] [id number] 05 Jan, 2013 [facility] [address] [id number] [address] [place] [address], [place] [id number] 04 Jan, 2012 [facility] [address] [id number] [address] [place] [address], [place] [id number] Jan, 2012 [facility] [address] [id number] [address] [place] [address], [place] [id number] Jan, [facility] [address] [id number] [address] [place] [address], [place] [id number] Jan, [facility] [address] [id number] [address] [place] [address], [place] [id number] Dec, [facility] [address] [id number] [address] [place] [address], [place] [id number] Nov, [facility] [address] [id number] [address] [place] [address], [place] [id number] Nov, [facility] [address] [id number] [address] [place] [address], [place] [id number] Nov, [facility] [address] [id number] [address] [place] [address], [place] [id number] Nov, [facility] [address] [id number] [address] [place] [address], [place] [id number] Nov, [facility] [address] [id number] [address] [place] [address], [place] [id number] Nov, [facility] [address] [id number] [address] [place] [address], [place] [id number] Nov, [facility] [address] [id number] [address] [place] [address], [place] [id number] Nov, [facility] [address] [id number] [address] [place] [address], [place] [id number] Nov, [facility] [address] [id number] [address] [place] [address], [place] [id number] 18 Nov, 2012 [facility] [address] [id number] [address] [place] [address], [place] [id number] 18 Nov, 2012 [facility] [address] [id number] [address] [place] [address], [place] [id number] Nov, [facility] [address] [id number] [address] [place] [address], [place] [id number] Nov, [facility] [address] [id number] [address] [place] [address], [place] [id number] 17 Oct, 2012 [facility] [address] [id number] [address] [place] [address], [place] [id number] Oct, [facility] [address] [id number] [address] [place] [address], [place] [id number] Oct, [facility] [address] [id number] [address] [place] [address], [place] [id number] Sep, [facility] [address] [id number] [address] [place] [address], [place] [id number] Sep, [facility] [address] [id number] [address] [place] [address], [place] [id number] Sep, [facility] [address] [id number] [address] [place] [address], [place] [id number] 10 Sep, 2012 [facility] [address] [id number] [address] [place] [address], [place] [id number] 27 Aug, 2012 [facility] [address] [id number] [address] [place] [address], [place] [id number] 20 Aug, 2012 [facility] [address] [id number] [address] [place] [address], [place] [id number] 24 Jul, 2012 [facility] [address] [id number] [address] [place] [address], [place] [id number] 27 May, 2012 [facility] [address] [id number] [address] [place] [address], [place] [id number] 14 May, 2012 [facility] [address] [id number] [address] [place] [address], [place] [id number] 14 May, 2012 [facility] [address] [id number] [address] [place] [address], [place] [id number] April, [facility] [address] [id number] [address] [place] [address], [place] [id number] Mar, [facility] [address] [id number] [address] [place] [address], [place] [id number] Mar, [facility] [address] [id number] [address] [place] [address], [place] [id number] Mar, [facility] [address] [id number] [address] [place] [address], [place] [id number] Jan, [facility] [address] [id number] [address] [place] [address], [place] [id number] Jan, [facility] [address] [id number] [address] [place] [address], [place] [id number] Jan, [facility] [address] [id number] [address] [place] [address], [place] [id number] Dec, [facility] [address] [id number] [address] [place] [address], [place] [id number] Dec, [facility] [address] [id number] [address] [place] [address], [place] [id number] Dec, [facility] [address] [id number] [address] [place] [address], [place] [id number] Dec, [facility] [address] [id number] [address] [place] [address], [place] [id number] Nov, [facility] [address] [id number] [address] [place] [address], [place] [id number] Nov, [facility] [address] [id number] [address] [place] [address], [place] [id number] Nov, [facility] [address] [id number] [address] [place] [address], [place] [id number] 03 Oct, 2011 [facility] [address] [id number] [address] [place] [address], [place] [id number] 31 Sep, 2011 [facility] [address] [id number] [address] [place] [address], [place] [id number] 26 Sep, 2011 [facility] [address] [id number] [address] [place] [address], [place] [id number] 13 Sep, 2011 [facility] [address] [id number] [address] [place] [address], [place] [id number] 15 Nov, 2010 [facility] [address] [id number] [address] [place] [address], [place] [id number] 23 Oct, 2010 [facility] [address] [id number] [address] [place] [address], [place] [id number] Oct, [facility] [address] [id number] [address] [place] [address], [place] [id number] 18 Oct, 2010 [facility] [address] [id number] [address] [place] [address], [place] [id number] 16 Oct, 2010 [facility] [address] [id number] [address] [place] [address], [place] [id number] Sep, [facility] [address] [id number] [address] [place] [address], [place] [id number] April, [facility] [address] [id number] [address] [place] [address], [place] [id number] 29 Nov, 2009 [facility] [address] [id number] [address] [place] [address], [place] [id number] 24 Nov, 2009 [facility] [address] [id number] [address] [place] [address], [place] [id number] 22 Nov, 2009 [facility] [address] [id number] [address] [place] [address], [place] [id number] Nov, [facility] [address] [id number] [address] [place] [address], [place] [id number] 10 Nov, 2009 [facility] [address] [facility] [id number] [address] [place] [id number] Oct, [facility] [address] [facility] [id number] [address] [place] [id number] Oct, [facility] [address] [facility] [id number] [address] [place] [id number] Sep, [facility] [address] [facility] [id number] [address] [place] [id number] Jan, IMMUNIZATIONS No Known Immunizations SOCIAL HISTORY [...] hip fx 04/27/16 Hospitalization [facility] Hx of 3 inpatient psych treatments [facility] past in [place] oct 2016 [facility] 2016
--- OUTSIDE RECORDS SUMMARY | 2020-04-18 20:14 | XMS REPORT ---
Author Author Ave AGUIRRE Organization [facility] Address [address] [place] [address] Care Team Providers Care Print Shop Assistant Name Role Phone WOLF AGUIRRE Unavailable PROBLEMS Type Condition ICD9-CM Code YAH02-NW Code Onset Dates Condition S tatus SNOMED Code Problem Generalized anxiety disorder F41.1 A ctive 87129666 Problem Failure to thrive in adult R62.7 Act mishel [id number] Problem Dysthymic disorder F34.1 Active 7 6070174 Problem Iron deficiency anemia secondary to inadequate d ietary iron intake D50.8 Active 058219299 Problem Poor appetite R63.0 Active 450116 06 Problem Reactive depression F32.9 Active 23936556 Problem Coarse tremors G25.2 Active 98722 004 Problem Oropharyngeal dysphagia R13.12 Active 93303645 Problem Sundowning F05 Active 522410333 Problem 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 Active 1819 3002 Problem Constipation, unspecified constipation type K59.00 Active 10000807 Problem Vascular dementia with behavior disturbance F01.51 Active [id number] Problem Essential hypertension I10 Active 46406539 Problem Gastroesophageal reflux disease without esophagitis K21.9 Active 226907615 Problem Other chronic pain G89.29 Active 8 3224198 Problem Insomnia, unspecified type G47.00 Act mishel [id number] Problem Severe episode of recurrent major depressive disorder, without psychotic features F33.2 Active 81124934 Problem Slow transit constipation K59.01 Acti ve 58540831 Problem Mood disorder F39 Active 811842 05 Problem Irritable bowel syndrome with diarrhea K58.0 Active 387967901 Problem 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 Active 6976678 04 Problem Obsessive thinking F42.8 Active 6 9721410 Problem Dementia in other diseases c lassified elsewhere with behavioral disturbance F02.81 Active 437996766 Problem HTN (hypertension) I10 Active 3 7571443 Problem Other chronic pain G89.29 Active 8 7271918 Problem Dyspepsia K30 Active 202061815 Problem Atherosclerotic heart diseas e of [place] 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 Active [id number] Problem Primary insomnia F51.01 Active 397 2004 Problem Alzheimer''s disease with late onset G30.1 Active 999987968 Problem Acute on chronic systolic congestive heart failure I50.23 Active 761292076 Problem Coronary artery disease invo lving [place] coronary artery of [place] heart without angina pectoris I25.10 Active 1641 373832620 Problem Restless legs G25.81 Active 339924 08 ALLERGIES No Information ENCOUNTERS Encounter Location Date Diagnosis [facility] [address] [facility] [id number] [address] [place] [id number] 02 Mar, 2020 [facility] [address] [facility] [id number] [address] [place] [phone] 27 Jan, [facility] [address] [place] [id number] Jan, Generalized anxiety disorder F41.1 and Pressure sore on ankle, right, unstageable L89.510 [facility] [address] [facility] [id number] [address] [place] [id number] 25 Jan, 2020 [facility] [address] [facility] [id number] [address] [place] [id number] Jan, [facility] [address] [facility] [id number] [address] [place] [address] 23 Jan, 2020 Weakness R53.1 [facility] [address] [facility] [id number] [address] [place] [id number] 20 Jan, 2020 [facility] [address] [facility] [id number] [address] [place] [phone] 10 Jan, 2020 Generalized anxiety disorder F41.1 [facility] [address] [facility] [id number] [address] [place] [phone] 08 Jan, 2020 Nausea R11.0 [facility] [address] [facility] [id number] [address] [place] [address] 03 Jan, 2020 Dyspepsia K30 [facility] [address] [facility] [id number] [address] [place] [address] Jan, [facility] [address] [facility] [id number] [address] [place] [id number] Jan, [facility] [address] [facility] [id number] [address] [place] [id number] Jan, [facility] [address] [facility] [id number] [address] [place] [address] Jan, [facility] [address] [facility] [id number] [address] [place] [phone] Jan, [facility] [address] [id number] Jan, Generalized anxiety disorder F41.1 [facility] [address] [facility] [id number] [address] [place] [address] Jan, [facility] [address] [id number] Jan, Coronary artery disease involving [place] coronary artery of [place] heart without angina pectoris I25.10 [facility] [address] [facility] [id number] [address] [place] [address] 10 Jan, 2020 [facility] [address] [facility] [id number] [address] [place] [address] Dec, Atherosclerotic heart diseas e of [place] 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 [facility] [address] [facility] [id number] [address] [place] [phone] Dec, [facility] [address] [place] [id number] Dec, Mood disorder F39 ; Acute on chronic systolic congestive heart failure I50.23 ; Obsessive thinking F42.8 and HTN (hypertension) I10 [facility] [address] [id number] Nov, Cough R05 [facility] [address] [facility] [id number] [address] [place] [phone] Nov, [facility] [address] [id number] [address] [place] [id number] Oct, [facility] [address] [place] [id number] Oct, Obsessive thinking F42.8 ; Generalized anxiety disorder F41.1 ; Primary insomnia F51.01 and Restless legs G25.81 [facility] [address] [id number] [address] [place] [address] Sep, [facility] [address] [place] [id number] Aug, Coronary artery disease involving [place] coronary artery of [place] heart without angina pectoris I25.10 [facility] [address] [id number] [address] [place] [address] Jul, [facility] [address] [id number] [address] [place] [address] Jul, [facility] [address] [id number] [address] [place] [phone] Jul, [facility] [address] [id number] [address] [place] [address] Jul, [facility] [address] [id number] [address] [place] [address] Jul, [facility] [address] [id number] Jun, Acute on chronic systolic congestive heart failure I50.23 and Atherosclerotic heart disease of [place] 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 [facility] [address] [id number] [address] [place] [address] Jun, [facility] [address] [id number] [address] [place] [address] Jun, [facility] [address] [id number] [address] [place] [address] Jun, [facility] [address] [id number] [address] [place] [address] Jun, [facility] [address] [id number] [address] [place] [address] Jun, [facility] [address] [id number] [address] [place] [id number] Jun, [facility] [address] [id number] [address] [place] [address] Jun, [facility] [address] [place] [id number] May, Pressure injury of right ankle, stage 2 L89.512 and Constipation, unspecified constipation type K59.00 [facility] [address] [id number] [address] [place] [address] May, [facility] [address] [place] [id number] April, Constipation, unspecified constipation type K59.00 ; Pressure injury of right ankle, stage 1 L89.511 and Vascular dementia with behavior disturbance F01.51 [facility] [address] [id number] [address] [place] [id number] Mar, [facility] [address] [id number] [address] [place] [address] Mar, [facility] [address] [id number] [address] [place] [address] Mar, [facility] [address] [id number] [address] [place] [address] Mar, [facility] [address] [id number] [address] [place] [address] Jan, [facility] [address] [id number] [address] [place] [id number] Jan, [facility] [address] [id number] [address] [place] [address] Jan, [facility] [address] [place] [id number] Jan, Pneumonia due to infectious organism, unspecified laterality, unspecified part of lung J18.9 ; Fall from bed, sequela W06.XXXS ; Hyponatremia E87.1 and Slow transit constipation K59.01 [facility] [address] [place] [address] Jan, [facility] [address] [place] [id number] [address] [place] [address] Jan, [place] [address] [place] [id number] [address] [place] [address] Jan, [place] [address] [place] [id number] [address] [place] [address] Dec, [facility] [address] [id number] Dec, Other depression F32.89 ; Alzheimer''s disease with late onset G30.1 and Dementia in other diseases classified elsewhere with behavioral disturbance F02.81 [place] [address] [place] [address] Dec, [facility] [address] [place] [id number] Dec, [facility] [address] [id number] Nov, Generalized anxiety disorder F41.1 and Obsessive thinking F42.8 [place] [address] [place] [address] Nov, [place] [address] [place] [id number] [address] [place] [address] Oct, [place] [address] [place] [id number] [address] [place] [address] Oct, [place] [address] [place] [id number] [address] [place] [address] Oct, [facility] [address] [place] [id number] [address] [place] [address] Oct, [facility] [address] [id number] [address] [place] [address] Oct, [facility] [address] [place] [id number] Oct, Generalized anxiety disorder F41.1 and Obsessive thinking F42.8 [facility] [address] [id number] [address] [place] [phone] Sep, [facility] [address] [id number] [address] [place] [address] Sep, [facility] [address] [id number] [address] [place] [address] Sep, [facility] [address] [id number] [address] [place] [address] Sep, [facility] [address] [place] [id number] Sep, Generalized anxiety disorder F41.1 ; Obsessive thinking F42.8 and Mood disorder F39 [facility] [address] [id number] [address] [place] [address] Sep, [facility] [address] [id number] [address] [place] [address] Sep, [facility] [address] [place] [id number] Sep, [facility] [address] [id number] [address] [place] [id number] Sep, [facility] [address] [id number] [address] [place] [address] Sep, [facility] [address] [place] [id number] Sep, Obsessive thinking F42.8 [facility] [address] [id number] [address] [place] [address] Sep, [facility] [address] [id number] [address] [place] [address] Sep, [facility] [address] [id number] [address] [place] [id number] Aug, [facility] [address] [id number] [address] [place] [address] Aug, [facility] [address] [facility] [id number] [address] [place] [address] Aug, Positive urine drug screen R 82.5 [facility] [address] [place] [id number] Aug, [facility] [address] [facility] [id number] [address] [place] [address] Aug, [facility] [address] [facility] [id number] [address] [place] [address] Aug, [facility] [address] [facility] [id number] [address] [place] [phone] Aug, Irritable bowel syndrome wit h diarrhea K58.0 [facility] [address] [facility] [id number] [address] [place] [address] Aug, [facility] [address] [facility] [id number] [address] [place] [address] Aug, Obsessive thinking F42.8 ; I nsomnia, unspecified type G47.00 and Other chronic pain G89.29 [facility] [address] [place] [id number] Aug, Obsessive thinking F42.8 ; Irritable bowel syndrome with diarrhea K58.0 ; Pain in right foot M79.671 ; Pain of left foot M79.672 and Gastroesophageal reflux disease without esophagitis K21.9 [facility] [address] [facility] [id number] [address] [place] [address] Aug, [facility] [address] [facility] [id number] [address] [place] [phone] Jul, [facility] [address] [facility] [id number] [address] [place] [address] Jun, [facility] [address] [facility] [id number] [address] [place] [address] Jun, [facility] [address] [place] [id number] Jun, Left lower quadrant pain R10.32 and Left leg pain M79.605 [facility] [address] [facility] [id number] [address] [place] [address] Jun, [facility] [address] [place] [id number] Jun, Pain in left hip M25.552 ; Pain in right hip M25.551 and Primary insomnia F51.01 [facility] [address] [facility] [id number] [address] [place] [address] Jun, [facility] [address] [place] [id number] May, [facility] [address] [place] [id number] [address] [place] [address] May, [facility] [address] [place] [id number] [address] [place] [address] May, [facility] [address] [place] [id number] May, Mood disorder F39 [facility] [address] [place] [id number] [address] [place] [address] May, [facility] [address] [place] [id number] [address] [place] [address] April, [facility] [address] [place] [id number] April, Generalized anxiety disorder F41.1 ; Obsessive thinking F42.8 and Insomnia, unspecified type G47.00 [facility] [address] [facility] [id number] [address] [place] [address] April, [facility] [address] [place] [id number] [address] [place] [address] April, Rash of face R21 [facility] [address] [facility] [id number] [address] [place] [address] Mar, [facility] [address] [facility] [id number] [address] [place] [address] Mar, [facility] [address] [facility] [id number] [address] [place] [address] Mar, [facility] [address] [facility] [id number] [address] [place] [address] Jan, [facility] [address] [place] [id number] [address] [place] [address] Jan, [facility] [address] [place] [id number] Jan, Constipation, unspecified constipation type K59.00 and Other chronic pain G89.29 [facility] [address] [place] [id number] [address] [place] [address] Jan, [facility] [address] [place] [id number] Jan, Obsessive thinking F42.8 and Coarse tremors G25.2 [facility] [address] [id number] [place] [id number] Jan, [facility] [address] [id number] [place] [id number] Jan, [facility] [address] [place] [id number] Jan, Generalized anxiety disorder F41.1 ; Obsessive thinking F42.8 ; Callus of foot L84 and 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 [facility] [address] [facility] [id number] [address] [place] [address] Dec, Generalized anxiety disorder F41.1 and Severe episode of recurrent major depressive disorder, without psychotic features F33.2 [facility] [address] [place] [id number] [address] [place] [id number] Nov, [facility] [address] [place] [id number] [address] [place] [address] Nov, [facility] [address] [place] [id number] Nov, Oropharyngeal dysphagia R13.12 ; Generalized anxiety disorder F41.1 and 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 [facility] [address] [facility] [id number] [address] [place] [address] Nov, [facility] [address] [id number] [place] [id number] Nov, [facility] [address] [facility] [id number] [address] [place] [address] Nov, [facility] [address] [facility] [id number] [address] [place] [address] Nov, [facility] [address] [facility] [id number] [address] [place] [address] Oct, Constipation, unspecified co nstipation type K59.00 and Mood disorder F39 [facility] [address] [facility] [id number] [address] [place] [address] Oct, [facility] [address] [id number] [place] [id number] Sep, [facility] [address] [id number] [place] [id number] Sep, [facility] [address] [id number] [place] [id number] Sep, [facility] [address] [id number] [place] [id number] Sep, [facility] [address] [place] [id number] Sep, Generalized abdominal pain R10.84 [facility] [address] [facility] [id number] [address] [place] [address] Sep, [facility] [address] [id number] [place] [id number] Sep, Generalized anxiety disorder F41.1 and P rimary insomnia F51.01 [facility] [address] [id number] [place] [facility] [place] [place] [id number] Aug, [facility] [address] [id number] [place] [id number] Aug, Generalized anxiety disorder F41.1 [facility] [address] [facility] [id number] [address] [place] [address] Jul, [facility] [address] [place] [id number] Jul, Obsessive thinking F42.8 [facility] [address] [facility] [id number] [address] [place] [address] Jul, Generalized anxiety disorder F41.1 and Irritable bowel syndrome with diarrhea K58.0 [facility] [address] [id number] [place] [facility] [place] [id number] Jul, Generalized anxiety disorder F41.1 [facility] [address] [id number] [place] [facility] [place] [id number] Jun, Generalized anxiety disorder F41.1 [facility] [address] [facility] [id number] [address] [place] [address] May, [facility] [address] [place] [id number] May, Generalized anxiety disorder F41.1 ; Irritable bowel syndrome with diarrhea K58.0 and Coarse tremors G25.2 [facility] [address] [facility] [id number] [address] [place] [address] April, [facility] [address] [facility] [id number] [address] [place] [address] April, [facility] [address] [facility] [id number] [address] [place] [address] April, [facility] [address] [facility] [id number] [address] [place] [address] Mar, [facility] [address] [place] [id number] Mar, Severe episode of recurrent major depressive disorder, without psychotic features F33.2 and Pain in left hip M25.552 [facility] [address] [id number] [address] [place] [address] Mar, [facility] [address] [id number] [address] [place] [address] Mar, [facility] [address] [id number] [address] [place] [address] Mar, [facility] [address] [id number] [address] [place] [address] Mar, Pain in right hip M25.551 an d Self-care deficit in patient living alone R46.89 [facility] [address] [facility] [id number] [address] [place] [address] Jan, Other chronic pain G89.29 ; Pain in left hip M25.552 and Slow transit constipation K59.01 [facility] [address] [facility] [id number] [address] [place] [address] Jan, [facility] [address] [facility] [id number] [address] [place] [id number] Dec, Other depression F32.89 ; Co nstipation, unspecified constipation type K59.00 and Insomnia, unspecified type G47.00 [place] [address] [facility] [id number] [address] [place] [id number] Nov, Reactive depression F32.9 ; Chronic idiopathic constipation K59.04 ; Generalized anxiety disorder F41.1 ; Coarse tremors G25.2 ; Gastroesophageal reflux disease without esophagitis K21.9 ; Dysthymic disorder F34.1 ; Vitamin deficiency, unspecified E56.9 and Primary insomnia F51.01 [facility] [address] [facility] [id number] [address] [place] [id number] Nov, [facility] [address] [facility] [id number] [address] [place] [id number] Nov, [facility] [id number] [place] [id number] Nov, [facility] [address] [id number] Nov, Reactive depression F32.9 ; Essential hypertension I10 ; Generalized anxiety disorder F41.1 ; Atherosclerotic heart disease of [place] 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 ; Pain in right hip M25.551 ; Other chronic pain G89.29 ; Chronic idiopathic constipation K59.04 ; Primary insomnia F51.01 ; Coarse tremors G25.2 ; Gastroesophageal reflux disease without esophagitis K21.9 ; Iron deficiency anemia secondary to inadequate dietary iron intake D50.8 and Vitamin deficiency, unspecified E56.9 [facility] [address] [place] [id number] [place] [id number] Oct, [place] [address] [place] [id number] [place] [id number] Oct, [facility] [address] [id number] Oct, [facility] [address] [id number] 16 Oct, 2016 Generalized anxiety disorder F41.1 ; Poor appetite R63.0 ; Dehydration E86.0 and Failure to thrive in adult R62.7 [facility] [address] [id number] 07 Oct, 2016 Generalized anxiety disorder F41.1 and Failure to thrive in adult R62.7 [facility] [address] [place] [id number] [address] [place] [id number] Oct, [facility] [address] [id number] Oct, [facility] [facility] [address] [id number] [address] [place] [address] Sep, Vaginal discharge N89.8 and Acute cystitis with hematuria N30.01 [facility] [address] [id number] Sep, [facility] [address] [address] Sep, [facility] [address] [address] Sep, Dysthymic disorder F34.1 ; A cute vaginitis N76.0 ; Dysuria R30.0 and Vaginal yeast infection B37.3 [facility] [address] [address] Aug, [facility] [address] [address] Aug, [facility] [address] [address] Aug, Foul smelling urine R82.90 ; Rapid heart rate R00.0 and Flatulence R14.3 [facility] [address] [address] Aug, [facility] [address] [address] Jul, Constipation, unspecified co nstipation type K59.00 ; Weak R53.1 ; Poor appetite R63.0 ; Coronary artery disease involving upper [place] heart without angina pectoris, unspecified vessel or lesion type I25.10 ; Fatigue, unspecified type R53.83 ; Urinary incontinence, unspecified type R32 and Insomnia, unspecified type G47.00 [facility] [address] [address] Jul, [facility] [address] [address] Jun, Dysuria R30.0 [address] [address] [address] Jun, [facility] [address] [address] Jun, Urinary tract infection, sit e not specified N39.0 ; Acute vaginitis N76.0 and Diarrhea, unspecified type R19.7 [facility] [address] [facility] [id number] [address] [place] [address] May, [facility] [address] [facility] [id number] [address] [place] [address] April, [facility] [address] [id number] [address] [place] [id number] April, Encounter for dental examina tion Z01.20 [facility] [address] [facility] [id number] [address] [place] [address] April, [facility] [address] [facility] [id number] [address] [place] [id number] April, Tremor R25.1 and Episodic te nsion-type headache, not intractable G44.219 [facility] [address] [facility] [id number] [address] [place] [id number] Mar, [facility] [address] [facility] [id number] [address] [place] [address] Jan, Mood disorder F39 [facility] [address] [facility] [id number] [address] [place] [address] Jan, [facility] [address] [facility] [id number] [address] [place] [address] Jan, [facility] [address] [facility] [id number] [address] [place] [id number] Jan, [facility] [address] [facility] [id number] [address] [place] [id number] Jan, [facility] [address] [facility] [id number] [address] [place] [address] Jan, [facility] [address] [facility] [id number] [address] [place] [id number] Jan, [facility] [address] [id number] [address] [place] [address] Dec, Acute diarrhea R19.7 [facility] [address] [facility] [id number] [address] [place] [id number] Dec, [facility] [address] [facility] [id number] [address] [place] [address] Dec, [facility] [address] [facility] [id number] [address] [place] [id number] Dec, [facility] [address] [facility] [id number] [address] [place] [address] Dec, N&V (nausea and vomiting) R1 1.2 [facility] [address] [facility] [id number] [address] [place] [id number] 04 Dec, 2015 Generalized anxiety disorder F41.1 [facility] [address] [facility] [id number] [address] [place] [address] Dec, Generalized anxiety disorder F41.1 [facility] [address] [facility] [id number] [address] [place] [address] Nov, Post concussion syndrome F07 .81 [facility] [address] [facility] [id number] [address] [place] [address] Nov, Generalized anxiety disorder F41.1 [facility] [address] [facility] [id number] [address] [place] [address] Nov, [facility] [address] [facility] [id number] [address] [place] [address] Nov, Generalized anxiety disorder F41.1 [facility] [address] [id number] [place] [id number] Oct, Dental caries K02.9 [facility] [address] [id number] [address] [place] [id number] Oct, [facility] [address] [id number] [address] [place] [address] [id number] Oct, Dental examination Z01.20 [facility] [address] [id number] [address] [place] [address] [id number] Oct, Encounter for dental examina tion Z01.20 [facility] [address] [id number] [address] [place] [address] Oct, CAD (coronary artery disease ) I25.10 [facility] [address] [id number] [address] [place] [address] Sep, Generalized anxiety disorder F41.1 [facility] [address] [address] Sep, [facility] [address] [address] Sep, Rash and other nonspecific s kin eruption R21 and Yeast vaginitis B37.3 [facility] [address] [address] Sep, Generalized anxiety disorder F41.1 [facility] [address] [id number] [address] [place] [address] Aug, Insect bites 919.4 and Hemor rhoids 455.6 [facility] [address] [id number] [address] [place] [address] Aug, Generalized anxiety disorder 300.02 [facility] [address] [id number] [address] [place] [id number] 08 Aug, 2015 [facility] [address] [id number] [address] [place] [address] Aug, [facility] [address] [address] Aug, Generalized anxiety disorder 300.02 ; No condition on Howe II V71.09 ; Heart problem 429.9 and Hypertension 401.9 [facility] [address] [id number] [address] [place] [address] Aug, [facility] [id number] [place] [address] Jul, [facility] [address] [id number] [address] [place] [id number] Jul, [facility] [address] [id number] [address] [place] [address] Jul, [facility] [address] [id number] [address] [place] [id number] Jul, [facility] [address] [id number] [address] [place] [id number] Jul, Rash 782.1 [facility] [address] [id number] [address] [place] [id number] Jul, UTI (urinary tract infection ) 599.0 [facility] [address] [id number] [address] [place] [address] Jul, [facility] [address] [id number] [address] [place] [id number] Jun, Dysthymia 300.4 and Anxiety 300.00 [facility] [address] [id number] [address] [place] [id number] Jun, 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 [facility] [address] [id number] [address] [place] [id number] May, [facility] [address] [id number] [address] [place] [address] May, [facility] [address] [id number] [address] [place] [address] May, Unspecified breast screening V76.10 [facility] [address] [id number] [address] [place] [address] [id number] May, Dental examination V72.2 [facility] [address] [id number] [address] [place] [id number] April, [facility] [address] [id number] [address] [place] [id number] April, [facility] [address] [id number] [address] [place] [address] [id number] April, Dental examination V72.2 [facility] [address] [id number] [address] [place] [address] [id number] April, Dental examination V72.2 [facility] [address] [id number] [address] [place] [id number] 14 Mar, 2015 [facility] [address] [id number] [address] [place] [address], [place] [address] Mar, [facility] [address] [id number] [address] [place] [address], [place] [address] 25 Jan, 2015 [facility] [address] [id number] [address] [place] [id number] 25 Jan, 2015 [facility] [address] [id number] [address] [place] [id number] 18 Jan, 2015 [facility] [address] [id number] [address] [place] [id number] 18 Jan, 2015 [facility] [address] [id number] [address] [place] [id number] 16 Jan, 2015 [facility] [address] [id number] [address] [place] [id number] 16 Jan, 2015 [facility] [address] [id number] [address] [place] [id number] 13 Jan, 2015 [facility] [address] [id number] [address] [place] [id number] 13 Jan, 2015 [facility] [address] [id number] [address] [place] [id number] 11 Jan, 2015 [facility] [address] [id number] [address] [place] [id number] 11 Jan, 2015 [facility] [address] [id number] [address] [place] [id number] Jan, [facility] [address] [id number] [address] [place] [address], [place] [address] Jan, [facility] [address] [id number] [address] [place] [address], [place] [address] Jan, [facility] [address] [id number] [address] [place] [address], [place] [address] Jan, [facility] [address] [id number] [address] [place] [address], [place] [address] Jan, [facility] [address] [id number] [address] [place] [address], [place] [address] Jan, [facility] [address] [id number] [address] [place] [address], [place] [address] Jan, [facility] [address] [id number] [address] [place] [address], [place] [address] Jan, [facility] [address] [id number] [address] [place] [address], [place] [address] Jan, [facility] [address] [id number] [address] [place] [address], [place] [address] Jan, [facility] [address] [id number] [address] [place] [address], [place] [address] Jan, [facility] [address] [id number] [address] [place] [address], [place] [address] Jan, [facility] [address] [id number] [address] [place] [address], [place] [address] Dec, [facility] [address] [id number] [address] [place] [address], [place] [address] Dec, [facility] [address] [id number] [address] [place] [id number] Dec, [facility] [address] [id number] [address] [place] [id number] Dec, [facility] [address] [id number] [address] [place] [address], [place] [address] Nov, [facility] [address] [id number] [address] [place] [address], [place] [address] Nov, [facility] [address] [id number] [address] [place] [address], [place] [address] Nov, [facility] [address] [id number] [address] [place] [address], [place] [address] Nov, [facility] [address] [id number] [address] [place] [address], [place] [address] 08 Nov, 2014 [facility] [address] [id number] [address] [place] [address], [place] [address] Nov, [facility] [address] [id number] [address] [place] [address], [place] [address] Nov, [facility] [address] [id number] [address] [place] [address], [place] [address] Oct, [facility] [address] [id number] [address] [place] [address], [place] [address] Oct, [facility] [address] [id number] [address] [place] [address], [place] [address] Oct, [facility] [address] [id number] [address] [place] [address], [place] [address] Oct, [facility] [address] [id number] [address] [place] [address], [place] [address] Oct, [facility] [address] [id number] [address] [place] [address], [place] [address] Oct, [facility] [address] [id number] [address] [place] [address], [place] [address] Oct, [facility] [address] [id number] [address] [place] [address], [place] [address] Oct, [facility] [address] [id number] [address] [place] [address], [place] [address] Oct, [facility] [address] [id number] [address] [place] [address], [place] [address] Oct, [facility] [address] [id number] [address] [place] [address], [place] [address] Oct, [facility] [address] [id number] [address] [place] [address], [place] [address] Oct, [facility] [address] [id number] [address] [place] [address], [place] [address] Sep, [facility] [address] [id number] [address] [place] [address], [place] [address] Sep, [facility] [address] [id number] [address] [place] [address], [place] [address] Sep, [facility] [address] [id number] [address] [place] [address], [place] [address] Sep, [facility] [address] [id number] [address] [place] [address], [place] [address] Jul, [facility] [address] [id number] [address] [place] [address], [place] [address] Jul, [facility] [address] [id number] [address] [place] [address], [place] [address] Jul, [facility] [address] [id number] [address] [place] [address], [place] [address] Jul, [facility] [address] [id number] [address] [place] [address], [place] [address] Jun, [facility] [address] [id number] [address] [place] [address], [place] [address] Jun, [facility] [address] [id number] [address] [place] [address], [place] [address] Jun, [facility] [address] [id number] [address] [place] [address], [place] [address] Jun, [facility] [address] [id number] [address] [place] [address], [place] [address] May, [facility] [address] [id number] [address] [place] [address], [place] [address] May, [facility] [address] [id number] [address] [place] [address], [place] [address] April, [facility] [address] [id number] [address] [place] [address], [place] [address] April, [facility] [address] [id number] [address] [place] [address], [place] [address] April, [facility] [address] [id number] [address] [place] [address], [place] [address] April, [facility] [address] [id number] [address] [place] [address], [place] [address] April, [facility] [address] [id number] [address] [place] [address], [place] [address] April, [facility] [address] [id number] [address] [place] [address], [place] [address] April, [facility] [address] [id number] [address] [place] [address], [place] [address] April, [facility] [address] [id number] [address] [place] [address], [place] [address] April, [facility] [address] [id number] [address] [place] [address], [place] [address] Mar, [facility] [address] [id number] [address] [place] [address], [place] [address] Mar, [facility] [address] [id number] [address] [place] [address], [place] [address] Mar, [facility] [address] [id number] [address] [place] [address], [place] [address] Mar, [facility] [address] [id number] [address] [place] [address], [place] [address] Jan, [facility] [address] [id number] [address] [place] [address], [place] [address] Jan, [facility] [address] [id number] [address] [place] [address], [place] [address] Jan, [facility] [address] [id number] [address] [place] [address], [place] [address] Jan, [facility] [address] [id number] [address] [place] [address], [place] [address] Jan, [facility] [address] [id number] [address] [place] [address], [place] [address] Jan, [facility] [address] [id number] [address] [place] [address], [place] [address] Jan, [facility] [address] [id number] [address] [place] [address], [place] [address] Jan, [facility] [address] [id number] [address] [place] [address], [place] [address] Jan, [facility] [address] [id number] [address] [place] [address], [place] [address] Jan, [facility] [address] [id number] [address] [place] [address], [place] [address] Jan, [facility] [address] [id number] [address] [place] [address], [place] [address] Jan, [facility] [address] [id number] [address] [place] [address], [place] [address] Dec, [facility] [address] [id number] [address] [place] [address], [place] [address] Dec, [facility] [address] [id number] [address] [place] [address], [place] [address] Dec, [facility] [address] [id number] [address] [place] [address], [place] [address] Dec, [facility] [address] [id number] [address] [place] [address], [place] [address] Nov, [facility] [address] [id number] [address] [place] [address], [place] [address] Nov, [facility] [address] [id number] [address] [place] [address], [place] [address] Nov, [facility] [address] [id number] [address] [place] [address], [place] [address] Nov, [facility] [address] [id number] [address] [place] [address], [place] [address] Oct, [facility] [address] [id number] [address] [place] [address], [place] [address] Oct, [facility] [address] [id number] [address] [place] [address], [place] [address] Sep, [facility] [address] [id number] [address] [place] [address], [place] [address] Sep, [facility] [address] [id number] [address] [place] [address], [place] [address] Jul, [facility] [address] [id number] [address] [place] [address], [place] [address] Jul, [facility] [address] [id number] [address] [place] [address], [place] [address] Jun, [facility] [address] [id number] [address] [place] [address], [place] [address] Jun, [facility] [address] [id number] [address] [place] [address], [place] [address] Jun, [facility] [address] [id number] [address] [place] [address], [place] [address] May, [facility] [address] [id number] [address] [place] [address], [place] [address] May, [facility] [address] [id number] [address] [place] [address], [place] [address] May, [facility] [address] [id number] [address] [place] [address], [place] [address] May, [facility] [address] [id number] [address] [place] [address], [place] [address] May, [facility] [address] [id number] [address] [place] [address], [place] [address] April, [facility] [address] [id number] [address] [place] [address], [place] [address] April, [facility] [address] [id number] [address] [place] [address], [place] [address] April, [facility] [address] [id number] [address] [place] [address], [place] [address] April, [facility] [address] [id number] [address] [place] [address], [place] [address] April, [facility] [address] [id number] [address] [place] [address], [place] [address] April, [facility] [address] [id number] [address] [place] [address], [place] [address] Mar, [facility] [address] [id number] [address] [place] [address], [place] [address] Mar, [facility] [address] [id number] [address] [place] [address], [place] [address] Jan, [facility] [address] [id number] [address] [place] [address], [place] [address] Jan, [facility] [address] [id number] [address] [place] [address], [place] [address] Jan, [facility] [address] [id number] [address] [place] [address], [place] [address] Jan, [facility] [address] [id number] [address] [place] [address], [place] [address] Jan, [facility] [address] [id number] [address] [place] [address], [place] [address] 12 Jan, 2013 [facility] [address] [id number] [address] [place] [address], [place] [address] 05 Jan, 2013 [facility] [address] [id number] [address] [place] [address], [place] [address] 04 Jan, 2012 [facility] [address] [id number] [address] [place] [address], [place] [address] Jan, 2012 [facility] [address] [id number] [address] [place] [address], [place] [address] Jan, [facility] [address] [id number] [address] [place] [address], [place] [address] Jan, [facility] [address] [id number] [place] [address], [place] [address] Dec, [facility] [address] [id number] [address] [place] [address], [place] [address] Nov, [facility] [address] [id number] [address] [place] [address], [place] [address] Nov, [facility] [address] [id number] [address] [place] [address], [place] [address] Nov, [facility] [address] [id number] [address] [place] [address], [place] [address] Nov, [facility] [address] [id number] [address] [place] [address], [place] [address] Nov, [facility] [address] [id number] [address] [place] [address], [place] [address] Nov, [facility] [address] [id number] [address] [place] [address], [place] [address] Nov, [facility] [address] [id number] [address] [place] [address], [place] [address] Nov, [facility] [address] [id number] [address] [place] [address], [place] [address] Nov, [facility] [address] [id number] [address] [place] [address], [place] [address] 18 Nov, 2012 [facility] [address] [id number] [address] [place] [address], [place] [address] 18 Nov, 2012 [facility] [address] [id number] [address] [place] [address], [place] [address] Nov, [facility] [address] [id number] [address] [place] [address], [place] [address] Nov, [facility] [address] [id number] [address] [place] [address], [place] [address] 17 Oct, 2012 [facility] [address] [id number] [address] [place] [address], [place] [address] Oct, [facility] [address] [id number] [address] [place] [address], [place] [address] Oct, [facility] [address] [id number] [address] [place] [address], [place] [address] Sep, [facility] [address] [id number] [address] [place] [address], [place] [address] Sep, [facility] [address] [id number] [address] [place] [address], [place] [address] Sep, [facility] [address] [id number] [address] [place] [address], [place] [address] 10 Sep, 2012 [facility] [address] [id number] [address] [place] [address], [place] [address] 27 Aug, 2012 [facility] [address] [id number] [address] [place] [address], [place] [address] 20 Aug, 2012 [facility] [address] [id number] [address] [place] [address], [place] [address] 24 Jul, 2012 [facility] [address] [id number] [address] [place] [address], [place] [address] 27 May, 2012 [facility] [address] [id number] [address] [place] [address], [place] [address] 14 May, 2012 [facility] [address] [id number] [address] [place] [address], [place] [address] 14 May, 2012 [facility] [address] [id number] [address] [place] [address], [place] [address] April, [facility] [address] [id number] [address] [place] [address], [place] [address] Mar, [facility] [address] [id number] [address] [place] [address], [place] [address] Mar, [facility] [address] [id number] [address] [place] [address], [place] [address] Mar, [facility] [address] [id number] [address] [place] [address], [place] [address] Jan, [facility] [address] [id number] [address] [place] [address], [place] [address] Jan, [facility] [address] [id number] [address] [place] [address], [place] [address] Jan, [facility] [address] [id number] [address] [place] [address], [place] [address] Dec, [facility] [address] [id number] [address] [place] [address], [place] [address] Dec, [facility] [address] [id number] [address] [place] [address], [place] [address] Dec, [facility] [address] [id number] [address] [place] [address], [place] [address] Dec, [facility] [address] [id number] [address] [place] [address], [place] [address] Nov, [facility] [address] [id number] [address] [place] [address], [place] [address] Nov, [facility] [address] [id number] [address] [place] [address], [place] [address] Nov, [facility] [address] [id number] [address] [place] [address], [place] [address] 03 Oct, 2011 [facility] [address] [id number] [address] [place] [address], [place] [address] 31 Sep, 2011 [facility] [address] [id number] [address] [place] [address], [place] [address] 26 Sep, 2011 [facility] [address] [id number] [address] [place] [address], [place] [address] 13 Sep, 2011 [facility] [address] [id number] [address] [place] [address], [place] [address] 15 Nov, 2010 [facility] [address] [id number] [address] [place] [address], [place] [address] 23 Oct, 2010 [facility] [address] [id number] [address] [place] [address], [place] [address] Oct, [facility] [address] [id number] [address] [place] [address], [place] [address] 18 Oct, 2010 [facility] [address] [id number] [address] [place] [address], [place] [address] 16 Oct, 2010 [facility] [address] [id number] [address] [place] [address], [place] [address] Sep, [facility] [address] [id number] [address] [place] [address], [place] [address] April, [facility] [address] [id number] [address] [place] [address], [place] [address] 29 Nov, 2009 [facility] [address] [id number] [address] [place] [address], [place] [address] 24 Nov, 2009 [facility] [address] [id number] [address] [place] [address], [place] [address] 22 Nov, 2009 [facility] [address] [id number] [address] [place] [address], [place] [address] Nov, [facility] [address] [id number] [address] [place] [address], [place] [address] 10 Nov, 2009 [facility] [address] [facility] [id number] [address] [place] [address] Oct, [facility] [address] [facility] [id number] [address] [place] [address] Oct, [facility] [address] [facility] [id number] [address] [place] [address] Sep, [facility] [address] [facility] [id number] [address] [place] [address] Jan, IMMUNIZATIONS No Known Immunizations SOCIAL HISTORY [...] History Depression Medical History At [facility] 04/2016 Started on Eliquis Medical History Anemia [...] History Intertrechanteric hip fx 04/27/16 [facility] Hx [facility] 3 inpatient psych treatments [facility] past in [place] oct 2016 [facility]
--- OUTSIDE RECORDS SUMMARY | 2020-04-18 20:15 | XMS REPORT ---
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 Name Role Phone WOLF AGUIRRE Unavailable PROBLEMS Type Condition ICD9-CM Code UGZ51-FL Code Onset Dates Condition S tatus SNOMED Code Problem Generalized anxiety disorder F41.1 A ctive 49095958 Problem Failure to thrive in adult R62.7 Act mishel [id number] Problem Dysthymic disorder F34.1 Active 7 6153288 Problem Iron deficiency anemia secondary to inadequate d ietary iron intake D50.8 Active 861702376 Problem Poor appetite R63.0 Active 277986 06 Problem Reactive depression F32.9 Active 20902873 Problem Coarse tremors G25.2 Active 45555 004 Problem Oropharyngeal dysphagia R13.12 Active 76630154 Problem Sundowning F05 Active 529158946 Problem 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 Active 1819 3002 Problem Constipation, unspecified constipation type K59.00 Active 69782436 Problem Vascular dementia with behavior disturbance F01.51 Active [id number] Problem Essential hypertension I10 Active 73960095 Problem Gastroesophageal reflux disease without esophagitis K21.9 Active 016978915 Problem Other chronic pain G89.29 Active 8 5493175 Problem Insomnia, unspecified type G47.00 Act mishel 872215784 Problem Severe episode of recurrent major depressive disorder, without psychotic features F33.2 Active 36387552 Problem Slow transit constipation K59.01 Acti ve 38615672 Problem Mood disorder F39 Active 264049 05 Problem Irritable bowel syndrome with diarrhea K58.0 Active 076594030 Problem 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 Active 4371572 04 Problem Obsessive thinking F42.8 Active 6 0053458 Problem Dementia in other diseases c lassified elsewhere with behavioral disturbance F02.81 Active 318723678 Problem HTN (hypertension) I10 Active 3 8267010 Problem Other chronic pain G89.29 Active 8 1314988 Problem Dyspepsia K30 Active 333487894 Problem 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 Active 615096552818624 Problem Primary insomnia F51.01 Active 397 2004 Problem Alzheimer''s disease with late onset G30.1 Active 625248157 Problem Acute on chronic systolic congestive heart failure I50.23 Active 140604271 Problem Coronary artery disease invo lving minto coronary artery of minto heart without angina pectoris I25.10 Active 1641 380200257 Problem Restless legs G25.81 Active 521043 08 ALLERGIES No Information ENCOUNTERS Encounter Location Date Diagnosis [facility] [place] [address] [facility] [id number] [address] [place] [phone] 27 Jan, [facility] [address] [place] [id number] Jan, Generalized anxiety disorder F41.1 and Pressure sore on ankle, right, unstageable L89.510 [facility] [place] [address] [facility] [id number] [address] [place] [address] Jan, [facility] [place] [address] [facility] [id number] [address] [place] [phone] Jan, [facility] [place] [address] [facility] [id number] [address] [place] [phone] Jan, Weakness R53.1 [facility] [place] [address] [facility] [id number] [address] [place] [phone] 20 Jan, 2020 [facility] [place] [address] [facility] [id number] [address] [place] [phone] 10 Jan, 2020 Generalized anxiety disorder F41.1 [facility] [place] [address] [facility] [id number] [address] [place] [id number] 08 Jan, 2020 Nausea R11.0 [facility] [place] [address] [facility] [id number] [address] [place] [phone] 03 Jan, 2020 Dyspepsia K30 [facility] [place] [address] [facility] [id number] [address] [place] [phone] Jan, [facility] [place] [address] [facility] [id number] [address] [place] [phone] Jan, [facility] [place] [address] [facility] [id number] [address] [place] [phone] Jan, [facility] [place] [address] [facility] [id number] [address] [place] [id number] Jan, [facility] [place] [address] [facility] [id number] [address] [place] [phone] Jan, [facility] [address] [id number] Jan, Generalized anxiety disorder F41.1 [facility] [place] [address] [facility] [id number] [address] [place] [phone] Jan, [facility] [address] [id number] Jan, Coronary artery disease involving minto coronary artery of minto heart without angina pectoris I25.10 [facility] [place] [address] [facility] [id number] [address] [place] [address] Jan, [facility] [place] [address] [facility] [id number] [address] [place] [phone] Dec, 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 [facility] [place] [address] [facility] [id number] [address] [place] [id number] Dec, [facility] [place] [address] [place] [id number] Dec, Mood disorder F39 ; Acute on chronic systolic congestive heart failure I50.23 ; Obsessive thinking F42.8 and HTN (hypertension) I[address] [id number] Nov, Cough R05 [facility] [place] [address] [facility] [id number] [address] [place] [id number] Nov, [facility] [place] [address] [facility] [id number] [address] [place] [phone] Oct, [facility] [place] [address] [place] [id number] Oct, Obsessive thinking F42.8 ; Generalized anxiety disorder F41.1 ; Primary insomnia F51.01 and Restless legs G25.81 [facility] [place] [address] [id number] [address] [place] [phone] Sep, [facility] [address] [id number] Aug, Coronary artery disease involving minto coronary artery of minto heart without angina pectoris I25.10 [facility] [place] [address] [id number] [address] [place] [phone] Jul, [facility] [place] [address] [id number] [address] [place] [id number] Jul, [facility] [place] [address] [id number] [address] [place] [phone] Jul, [facility] [place] [address] [id number] [address] [place] [phone] Jul, [facility] [place] [address] [id number] [address] [place] [phone] Jul, [facility] [address] [id number] Jun, Acute on chronic systolic congestive heart failure I50.23 and 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 [facility] [place] [address] [id number] [address] [place] [phone] Jun, [facility] [place] [address] [id number] [address] [place] [id number] Jun, [facility] [place] [address] [id number] [address] [place] [phone] Jun, [facility] [place] [address] [id number] [address] [place] [phone] Jun, [facility] [place] [address] [id number] [address] [place] [phone] Jun, [facility] [place] [address] [id number] [address] [place] [phone] Jun, [facility] [place] [address] [id number] [address] [place] [id number] Jun, [facility] [place] [address] [place] [id number] May, Pressure injury of right ankle, stage 2 L89.512 and Constipation, unspecified constipation type K59.00 [facility] [place] [address] [id number] [address] [place] [id number] May, [facility] [place] [address] [place], [place] [id number] April, Constipation, unspecified constipation type K59.00 ; Pressure injury of right ankle, stage 1 L89.511 and Vascular dementia with behavior disturbance F01.51 [facility] [place] [address] [id number] [address] [place] [address] Mar, [facility] [place] [address] [id number] [address] [place] [phone] Mar, [facility] [place] [address] [id number] [address] [place] [phone] Mar, [facility] [place] [address] [id number] [address] [place] [phone] Mar, [facility] [place] [address] [id number] [address] [place] [phone] Jan, [facility] [place] [address] [id number] [address] [place] [phone] Jan, [facility] [place] [address] [id number] [address] [place] [address] Jan, [facility] [place] [address] [place] [id number] Jan, Pneumonia due to infectious organism, unspecified laterality, unspecified part of lung J18.9 ; Fall from bed, sequela W06.XXXS ; Hyponatremia E87.1 and Slow transit constipation K59.01 [facility] [place] [address] [facility] [id number] [address] [place] [phone] Jan, [facility] [place] [address] [facility] [id number] [address] [place] [phone] Jan, [facility] [place] [address] [facility] [id number] [address] [place] [phone] Jan, [facility] [place] [address] [facility] [id number] [address] [place] [phone] Dec, [facility] [place] [address] [place] [id number] Dec, Other depression F32.89 ; Alzheimer''s disease with late onset G30.1 and Dementia in other diseases classified elsewhere with behavioral disturbance F02.81 [facility] [place] [address] [facility] [id number] [address] [place] [phone] Dec, [facility] [place] [address] [place] [id number] Dec, [facility] [place] [address] [place] [id number] Nov, Generalized anxiety disorder F41.1 and Obsessive thinking F42.8 [facility] [place] [address] [facility] [id number] [address] [place] [id number] Nov, [facility] [place] [address] [facility] [id number] [address] [place] [phone] Oct, [facility] [place] [address] [facility] [id number] [address] [place] [phone] Oct, [facility] [place] [address] [facility] [id number] [address] [place] [phone] Oct, [facility] [place] [address] [facility] [id number] [address] [place] [phone] Oct, [facility] [place] [address] [facility] [id number] [address] [place] [phone] Oct, [facility] [place] [address] [place] [id number] Oct, Generalized anxiety disorder F41.1 and Obsessive thinking F42.8 [facility] [place] [address] [id number] [address] [place] [phone] Sep, [facility] [place] [address] [id number] [address] [place] [phone] Sep, [facility] [place] [address] [id number] [address] [place] [phone] Sep, [facility] [place] [address] [id number] [address] [place] [phone] Sep, [facility] [place] [address] [place] [id number] Sep, Generalized anxiety disorder F41.1 ; Obsessive thinking F42.8 and Mood disorder F39 [facility] [place] [address] [id number] [address] [place] [phone] Sep, [facility] [place] [address] [id number] [address] [place] [phone] Sep, [facility] [place] [address] [place] [id number] Sep, [facility] [place] [address] [id number] [address] [place] [phone] Sep, [facility] [place] [address] [id number] [address] [place] [address] Sep, [facility] [place] [address] [place] [id number] Sep, Obsessive thinking F42.8 [facility] [place] [address] [id number] [address] [place] [phone] Sep, [facility] [place] [address] [id number] [address] [place] [address] Sep, [facility] [place] [address] [id number] [address] [place] [phone] Aug, [facility] [place] [address] [id number] [address] [place] [address] Aug, [facility] [place] [address] [facility] [id number] [address] [place] [phone] Aug, Positive urine drug screen R 82.[address] [id number] Aug, [facility] [place] [address] [facility] [id number] [address] [place] [phone] Aug, [facility] [place] [address] [facility] [id number] [address] [place] [address] Aug, [facility] [place] [address] [facility] [id number] [address] [place] [address] Aug, Irritable bowel syndrome wit h diarrhea K58.0 [facility] [place] [address] [place] [id number] [address] [place] [phone] Aug, [facility] [place] [address] [facility] [id number] [address] [place] [phone] Aug, Obsessive thinking F42.8 ; I nsomnia, unspecified type G47.00 and Other chronic pain G89.29 [place] [address] [place] [id number] Aug, Obsessive thinking F42.8 ; Irritable bowel syndrome with diarrhea K58.0 ; Pain in right foot M79.671 ; Pain of left foot M79.672 and Gastroesophageal reflux disease without esophagitis K21.9 [facility] [place] [address] [facility] [id number] [address] [place] [id number] Aug, [facility] [place] [address] [facility] [id number] [address] [place] [phone] Jul, [facility] [place] [address] [facility] [id number] [address] [place] [phone] Jun, [facility] [place] [address] [facility] [id number] [address] [place] [address] Jun, [facility] [address] [place] [id number] Jun, Left lower quadrant pain R10.32 and Left leg pain M79.605 [facility] [place] [address] [facility] [id number] [address] [place] [address] Jun, [facility] [place] [address] [place] [id number] Jun, Pain in left hip M25.552 ; Pain in right hip M25.551 and Primary insomnia F51.01 [facility] [place] [address] [facility] [id number] [address] [place] [phone] Jun, [facility] [place] [address] [place] [id number] May, [facility] [place] [address] [facility] [id number] [address] [place] [phone] May, [facility] [place] [address] [id number] [address] [place] [phone] May, [facility] [place] [address] [place] [id number] May, Mood disorder F39 [facility] [place] [address] [facility] [id number] [address] [place] [phone] May, [facility] [place] [address] [id number] [address] [place] [address] April, [facility] [address] [id number] April, Generalized anxiety disorder F41.1 ; Obsessive thinking F42.8 and Insomnia, unspecified type G47.00 [facility] [place] [address] [facility] [id number] [address] [place] [phone] April, [facility] [place] [address] [facility] [id number] [address] [place] [id number] April, Rash of face R21 [facility] [place] [address] [facility] [id number] [address] [place] [phone] Mar, [facility] [place] [address] [facility] [id number] [address] [place] [phone] Mar, [facility] [place] [address] [facility] [id number] [address] [place] [phone] Mar, [facility] [place] [address] [facility] [id number] [address] [place] [phone] Jan, [facility] [place] [address] [id number] [address] [place] [phone] Jan, [facility] [address] [id number] Jan, Constipation, unspecified constipation type K59.00 and Other chronic pain G89.29 [facility] [place] [address] [facility] [id number] [address] [place] [phone] Jan, [facility] [id number] Jan, Obsessive thinking F42.8 and Coarse tremors G25.2 [facility] [id number] [id number] Jan, [facility] [address] [id number] [id number] Jan, [facility] [address] [id number] Jan, Generalized anxiety disorder F41.1 ; Obsessive thinking F42.8 ; Callus of foot L84 and 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 [facility] [place] [address] [id number] [address] [place] [id number] Dec, Generalized anxiety disorder F41.1 and Severe episode of recurrent major depressive disorder, without psychotic features F33.2 [place] [address] [address] [facility] [id number] [address] [place] [phone] Nov, [place] [address] [id number] [address] [place] [phone] Nov, [facility] [address] [id number] Nov, Oropharyngeal dysphagia R13.12 ; Generalized anxiety disorder F41.1 and 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 [facility] [place] [address] [id number] [address] [place] [phone] Nov, [facility] [address] [id number] [place] [id number] Nov, [facility] [place] [address] [facility] [id number] [address] [place] [phone] Nov, [facility] [place] [address] [facility] [id number] [address] [place] [phone] Nov, [facility] [place] [address] [id number] [address] [place] [phone] Oct, Constipation, unspecified co nstipation type K59.00 and Mood disorder F39 [facility] [place] [address] [facility] [id number] [address] [place] [phone] Oct, [facility] [address] [id number] [place] [id number] Sep, [facility] [address] [id number] [place] [id number] Sep, [facility] [address] [id number] [place] [id number] Sep, [facility] [address] [id number] [place] [id number] Sep, [facility] [address] [place] [id number] Sep, Generalized abdominal pain R10.84 [facility] [place] [address] [facility] [id number] [address] [place] [phone] Sep, [facility] [address] [id number] [place] [id number] Sep, Generalized anxiety disorder F41.1 and P rimary insomnia F51.01 [facility] [address] [id number] [place] [id number] Aug, [facility] [address] [id number] [place] [id number] Aug, Generalized anxiety disorder F41.1 [facility] [place] [address] [facility] [id number] [place] [address] Jul, [facility] [address] [place] [id number] Jul, Obsessive thinking F42.8 [place] [address] [address] [facility] [id number] [address] [place] [address] Jul, Generalized anxiety disorder F41.1 and Irritable bowel syndrome with diarrhea K58.0 [place] [address] [id number] [id number] Jul, Generalized anxiety disorder F41.1 [place] [address] [id number] [id number] Jun, Generalized anxiety disorder F41.1 [place] [address] [address] [facility] [id number] [address] [place] [address] May, [facility] [address] [place] [id number] May, Generalized anxiety disorder F41.1 ; Irritable bowel syndrome with diarrhea K58.0 and Coarse tremors G25.2 [place] [address] [address] [place] [id number] [address] [place] [address] April, [place] [address] [address] [facility] [id number] [address] [place] [address] April, [place] [address] [address] [facility] [id number] [address] [place] [address] April, [place] [address] [place] [id number] [address] [place] [address] Mar, [facility] [address] [place] [id number] Mar, Severe episode of recurrent major depressive disorder, without psychotic features F33.2 and Pain in left hip M25.552 [place] [address] [address] [facility] [id number] [address] [place] [address] Mar, [facility] [place] [address] [facility] [id number] [address] [place] [address] Mar, [facility] [place] [address] [facility] [id number] [address] [place] [address] Mar, [facility] [place] [address] [facility] [id number] [address] [place] [address] Mar, Pain in right hip M25.551 an d Self-care deficit in patient living alone R46.89 [facility] [address] [facility] [id number] [address] [place] [address] Jan, Other chronic pain G89.29 ; Pain in left hip M25.552 and Slow transit constipation K59.01 [facility] [place] [address] [place] [id number] [address] [place] [address] Jan, [facility] [place] [address] [place] [address] Dec, Other depression F32.89 ; Co nstipation, unspecified constipation type K59.00 and Insomnia, unspecified type G47.00 [facility] [place] [address] [place] [id number] [address] [place] [address] Nov, Reactive depression F32.9 ; Chronic idiopathic constipation K59.04 ; Generalized anxiety disorder F41.1 ; Coarse tremors G25.2 ; Gastroesophageal reflux disease without esophagitis K21.9 ; Dysthymic disorder F34.1 ; Vitamin deficiency, unspecified E56.9 and Primary insomnia F51.01 [facility] [place] [address] [facility] [id number] [address] [place] [address] Nov, [facility] [place] [address] [place] [id number] [address] [place] [address] Nov, [facility] [place] [address] [place] [id number] [address] [place] [address] Nov, [facility] [place] [address] [address] 07 Nov, 2016 Reactive depression F32.9 ; Essential hypertension I10 ; Generalized anxiety disorder F41.1 ; 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 ; Pain in right hip M25.551 ; Other chronic pain G89.29 ; Chronic idiopathic constipation K59.04 ; Primary insomnia F51.01 ; Coarse tremors G25.2 ; Gastroesophageal reflux disease without esophagitis K21.9 ; Iron deficiency anemia secondary to inadequate dietary iron intake D50.8 and Vitamin deficiency, unspecified E56.9 [facility] [place] [address] [address] Oct, [place] [address] [address] Oct, [place] [address] [address] Oct, [place] [address] [address] 16 Oct, 2016 Generalized anxiety disorder F41.1 ; Poor appetite R63.0 ; Dehydration E86.0 and Failure to thrive in adult R62.7 [place] [address] [address] 07 Oct, 2016 Generalized anxiety disorder F41.1 and Failure to thrive in adult R62.7 [facility] [place] [address] [address] Oct, [facility] [place] [address] [address] Oct, [facility] [address] [place] [id number] [place] [address] Sep, Vaginal discharge N89.8 and Acute cystitis with hematuria N30.01 [facility] [place] [address] [place] [id number] [address] [place] [address] Sep, [facility] [place] [address] [address] Sep, [place] [address] [address] Sep, Dysthymic disorder F34.1 ; A cute vaginitis N76.0 ; Dysuria R30.0 and Vaginal yeast infection B37.3 [place] [address] [address] Aug, [place] [address] [address] Aug, [facility] [address] [address] Aug, Foul smelling urine R82.90 ; Rapid heart rate R00.0 and Flatulence R14.3 [place] [address] [address] Aug, [place] [address] [address] Jul, Constipation, unspecified co nstipation type K59.00 ; Weak R53.1 ; Poor appetite R63.0 ; Coronary artery disease involving minto heart without angina pectoris, unspecified vessel or lesion type I25.10 ; Fatigue, unspecified type R53.83 ; Urinary incontinence, unspecified type R32 and Insomnia, unspecified type G47.00 [place] [address] [address] Jul, [place] [address] [address] Jun, Dysuria R30.0 [place] [address] [address] Jun, [place] [address] [address] Jun, Urinary tract infection, sit e not specified N39.0 ; Acute vaginitis N76.0 and Diarrhea, unspecified type R19.7 [facility] [place] [address] [facility] [id number] [address] [place] [address] May, [facility] [place] [address] [facility] [id number] [address] [place] [address] April, [facility] [address] [id number] [address] [place] [id number] April, Encounter for dental examina tion Z01.20 [facility] [place] [address] [facility] [id number] [address] [place] [address] April, [facility] [place] [address] [facility] [id number] [address] [place] [address] April, Tremor R25.1 and Episodic te nsion-type headache, not intractable G44.219 [facility] [place] [address] [facility] [id number] [address] [place] [address] Mar, [facility] [place] [address] [facility] [id number] [address] [place] [address] Jan, Mood disorder F39 [facility] [address] [facility] [id number] [address] [place] [address] Jan, [facility] [place] [address] [facility] [id number] [address] [place] [address] Jan, [facility] [place] [address] [facility] [id number] [address] [place] [address] Jan, [facility] [place] [address] [facility] [id number] [address] [place] [address] Jan, [facility] [place] [address] [facility] [id number] [address] [place] [address] Jan, [facility] [place] [address] [facility] [id number] [address] [place] [address] Jan, [facility] [address] [facility] [id number] [address] [place] [address] 29 [place], 2016 Acute diarrhea R19.7 [facility] [place] [address] [id number] [address] [place] [address] Dec, [facility] [place] [address] [id number] [address] [place] [address] Dec, [facility] [place] [address] [id number] [address] [place] [address] Dec, [facility] [address] [id number] [address] [place] [address] Dec, N&V (nausea and vomiting) R1 1.2 [facility] [place] [address] [id number] [address] [place] [id number] 04 Dec, 2015 Generalized anxiety disorder F41.1 [facility] [place] [address] [id number] [address] [place] [address] Dec, Generalized anxiety disorder F41.1 [facility] [place] [address] [id number] [address] [place] [address] Nov, Post concussion syndrome F07 .81 [facility] [place] [address] [id number] [address] [place] [address] Nov, Generalized anxiety disorder F41.1 [facility] [place] [address] [id number] [address] [place] [address] Nov, [facility] [place] [address] [id number] [address] [place] [address] Nov, Generalized anxiety disorder F41.1 [facility] [address] [id number] [address] [place] [id number] Oct, Dental caries K02.9 [facility] [place] [address] [id number] [address] [place] [address] Oct, [facility] [address] [id number] [address] [place] [id number] Oct, Dental examination Z01.20 [facility] [address] [id number] [address] [place] [id number] Oct, Encounter for dental examina tion Z01.20 [place] [address] [address] Oct, CAD (coronary artery disease ) I25.10 [facility] [place] [address] [address] Sep, Generalized anxiety disorder F41.1 [place] [address] [address] Sep, [facility] [place] [address] [address] Sep, Rash and other nonspecific s kin eruption R21 and Yeast vaginitis B37.3 [place] [address] [address] Sep, Generalized anxiety disorder F41.1 [place] [address] [address] Aug, Insect bites 919.4 and Hemor rhoids 455.6 [place] [address] [address] Aug, Generalized anxiety disorder 300.02 [facility] [place] [address] [address] Aug, [facility] [place] [address] [address] Aug, [facility] [place] [address] [address] Aug, Generalized anxiety disorder 300.02 ; No condition on [place] II V71.09 ; Heart problem 429.9 and Hypertension 401.9 [facility] [place] [address] [address] Aug, [facility] [place] [address] [address] Jul, [facility] [place] [id number] [place] [address] Jul, [facility] [place] [address] [id number] [address] [place] [address] Jul, [facility] [place] [address] [id number] [address] [place] [id number] Jul, [facility] [place] [address] [id number] [address] [place] [address] Jul, Rash 782.1 [facility] [place] [address] [id number] [address] [place] [address] Jul, UTI (urinary tract infection ) 599.0 [facility] [place] [address] [id number] [address] [place] [address] Jul, [facility] [place] [address] [id number] [address] [place] [address] Jun, Dysthymia 300.4 and Anxiety 300.00 [facility] [place] [address] [id number] [address] [place] [address] Jun, 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 [facility] [place] [address] [id number] [address] [place] [address] May, [facility] [place] [address] [id number] [address] [place] [address] May, [facility] [place] [address] [id number] [address] [place] [address] May, Unspecified breast screening V76.10 [facility] [address] [id number] [address] [place] [id number] May, Dental examination V72.2 [facility] [place] [address] [id number] [address] [place] [address] April, [facility] [place] [address] [id number] [address] [place] [address] April, [facility] [address] [id number] [place] [id number] April, Dental examination V72.2 [facility] [address] [id number] [address] [place] [id number] April, Dental examination V72.2 [facility] [address] [id number] [address] [place] [address], [place] [address] 14 Mar, 2015 [facility] [address] [id number] [address] [place] [address], [place] [address] 13 Mar, 2015 [facility] [address] [id number] [address] [place] [address], [place] [address] 25 Jan, 2015 [facility] [address] [id number] [address] [place] [address], [place] [address] 25 Jan, 2015 [facility] [address] [id number] [address] [place] [address], [place] [address] 18 Jan, 2015 [facility] [address] [id number] [address] [place] [address], [place] [address] 18 Jan, 2015 [facility] [address] [id number] [address] [place] [address], [place] [address] 16 Jan, 2015 [facility] [address] [id number] [address] [place] [address] 16 Jan, 2015 [facility] [address] [id number] [address] [place] [id number] 13 Jan, 2015 [facility] [address] [id number] [address] [place] [address] 13 Jan, 2015 [facility] [address] [id number] [address] [place] [address] 11 Jan, 2015 [facility] [address] [id number] [address] [place] [address] 11 Jan, 2015 [facility] [address] [id number] [address] [place] [address] 11 Jan, 2015 [facility] [address] [id number] [address] [place] [address] Jan, [facility] [address] [id number] [address] [place] [address], [place] [address] Jan, [facility] [address] [id number] [address] [place] [address], [place] [address] Jan, [facility] [address] [id number] [address] [place] [address], [place] [address] Jan, [facility] [address] [id number] [address] [place] [address], [place] [address] Jan, [facility] [address] [id number] [address] [place] [address], [place] [address] Jan, [facility] [address] [id number] [address] [place] [address], [place] [address] Jan, [facility] [address] [id number] [address] [place] [address], [place] [address] Jan, [facility] [address] [id number] [address] [place] [address], [place] [address] Jan, [facility] [address] [id number] [address] [place] [address], [place] [address] Jan, [facility] [address] [id number] [address] [place] [address], [place] [address] Jan, [facility] [address] [id number] [address] [place] [address], [place] [address] Dec, [facility] [address] [id number] [address] [place] [address], [place] [address] Dec, [facility] [address] [id number] [address] [place] [address], [place] [address] Dec, [facility] [address] [id number] [address] [place] [address], [place] [address] Dec, [facility] [address] [id number] [address] [place] [address], [place] [address] Nov, [facility] [address] [id number] [address] [place] [address], [place] [address] Nov, [facility] [address] [id number] [address] [place] [address], [place] [address] Nov, [facility] [address] [id number] [address] [place] [address], [place] [address] Nov, [facility] [address] [id number] [address] [place] [address], [place] [address] Nov, [facility] [address] [id number] [address] [place] [address], [place] [address] Nov, [facility] [address] [id number] [address] [place] [address], [place] [address] Nov, [facility] [address] [id number] [address] [place] [address], [place] [address] Oct, [facility] [address] [id number] [address] [place] [address], [place] [address] Oct, [facility] [address] [id number] [address] [place] [address], [place] [address] Oct, [facility] [address] [id number] [address] [place] [address], [place] [address] Oct, [facility] [address] [id number] [address] [place] [address], [place] [address] Oct, [facility] [address] [id number] [address] [place] [address], [place] [address] Oct, [facility] [address] [id number] [address] [place] [address], [place] [address] Oct, [facility] [address] [id number] [address] [place] [address], [place] [address] Oct, [facility] [address] [id number] [address] [place] [address], [place] [address] Oct, [facility] [address] [id number] [address] [place] [address], [place] [address] Oct, [facility] [address] [id number] [address] [place] [address], [place] [address] Oct, [facility] [address] [id number] [address] [place] [address], [place] [address] Oct, [facility] [address] [id number] [address] [place] [address], [place] [address] Sep, [facility] [address] [id number] [address] [place] [address], [place] [address] Sep, [facility] [address] [id number] [address] [place] [address], [place] [address] Sep, [facility] [address] [id number] [address] [place] [address], [place] [address] Sep, [facility] [address] [id number] [address] [place] [address], [place] [address] Jul, [facility] [address] [id number] [address] [place] [address], [place] [address] Jul, [facility] [address] [id number] [address] [place] [address], [place] [address] Jul, [facility] [address] [id number] [address] [place] [address], [place] [address] Jul, [facility] [address] [id number] [address] [place] [address], [place] [address] Jun, [facility] [address] [id number] [address] [place] [address], [place] [address] Jun, [facility] [address] [id number] [address] [place] [address], [place] [address] Jun, [facility] [address] [id number] [address] [place] [address], [place] [address] Jun, [facility] [address] [id number] [address] [place] [address], [place] [address] May, [facility] [address] [id number] [address] [place] [address], [place] [address] May, [facility] [address] [id number] [address] [place] [address], [place] [address] April, [facility] [address] [id number] [address] [place] [address], [place] [address] April, [facility] [address] [id number] [address] [place] [address], [place] [address] April, [facility] [address] [id number] [address] [place] [address], [place] [address] April, [facility] [address] [id number] [address] [place] [address], [place] [address] April, [facility] [address] [id number] [address] [place] [address], [place] [address] April, [facility] [address] [id number] [address] [place] [address], [place] [address] April, [facility] [address] [id number] [address] [place] [address], [place] [address] April, [facility] [address] [id number] [address] [place] [address], [place] [address] April, [facility] [address] [id number] [address] [place] [address], [place] [address] Mar, [facility] [address] [id number] [place] [address], [place] [address] Mar, [facility] [address] [id number] [address] [place] [address], [place] [address] Mar, [facility] [address] [id number] [address] [place] [address], [place] [address] Mar, [facility] [address] [id number] [address] [place] [address], [place] [address] Jan, [facility] [address] [id number] [address] [place] [address], [place] [address] Jan, [facility] [address] [id number] [address] [place] [address], [place] [address] Jan, [facility] [address] [id number] [address] [place] [address], [place] [address] Jan, [facility] [address] [id number] [address] [place] [address], [place] [address] Jan, [facility] [address] [id number] [address] [place] [address], [place] [address] Jan, [facility] [address] [id number] [address] [place] [address], [place] [address] Jan, [facility] [address] [id number] [address] [place] [address], [place] [address] Jan, [facility] [address] [id number] [address] [place] [address], [place] [address] Jan, [facility] [address] [id number] [address] [place] [address], [place] [address] Jan, [facility] [address] [id number] [address] [place] [address], [place] [address] Jan, [facility] [address] [id number] [address] [place] [address], [place] [address] Jan, [facility] [address] [id number] [address] [place] [address], [place] [address] Dec, [facility] [address] [id number] [address] [place] [address], [place] [address] Dec, [facility] [address] [id number] [address] [place] [address], [place] [address] Dec, [facility] [address] [id number] [address] [place] [address], [place] [address] Dec, [facility] [address] [id number] [address] [place] [address], [place] [address] Nov, [facility] [address] [id number] [address] [place] [address], [place] [address] Nov, [facility] [address] [id number] [address] [place] [address], [place] [address] Nov, [facility] [address] [id number] [address] [place] [address], [place] [address] Nov, [facility] [address] [id number] [address] [place] [address], [place] [address] Oct, [facility] [address] [id number] [address] [place] [address], [place] [address] Oct, [facility] [address] [id number] [address] [place] [address], [place] [address] Sep, [facility] [address] [id number] [address] [place] [address], [place] [address] Sep, [facility] [address] [id number] [address] [place] [address], [place] [address] Jul, [facility] [address] [id number] [address] [place] [address], [place] [address] Jul, [facility] [address] [id number] [address] [place] [address], [place] [address] Jun, [facility] [address] [id number] [address] [place] [address], [place] [address] Jun, [facility] [address] [id number] [address] [place] [address], [place] [address] Jun, [facility] [address] [id number] [address] [place] [address], [place] [address] May, [facility] [address] [id number] [address] [place] [address], [place] [address] May, [facility] [address] [id number] [address] [place] [address], [place] [address] 17 May, 2013 [facility] [address] [id number] [address] [place] [address], [place] [address] May, [facility] [address] [id number] [address] [place] [address], [place] [address] May, [facility] [address] [id number] [address] [place] [address], [place] [address] April, [facility] [address] [id number] [address] [place] [address], [place] [address] April, [facility] [address] [id number] [address] [place] [address], [place] [address] April, [facility] [address] [id number] [address] [place] [address], [place] [address] April, [facility] [address] [id number] [address] [place] [address], [place] [address] April, [facility] [address] [id number] [address] [place] [address], [place] [address] April, [facility] [address] [id number] [address] [place] [address], [place] [address] Mar, [facility] [address] [id number] [address] [place] [address], [place] [address] Mar, [facility] [address] [id number] [address] [place] [address], [place] [address] Jan, [facility] [address] [id number] [address] [place] [address], [place] [address] Jan, [facility] [address] [id number] [address] [place] [address], [place] [address] Jan, [facility] [address] [id number] [address] [place] [address], [place] [address] Jan, [facility] [address] [id number] [address] [place] [address], [place] [address] Jan, [facility] [address] [id number] [address] [place] [address], [place] [address] Jan, [facility] [address] [id number] [address] [place] [address], [place] [address] 05 Jan, 2013 [facility] [address] [id number] [address] [place] [address], [place] [address] 04 Jan, 2013 [facility] [address] [id number] [address] [place] [address], [place] [address] 03 Jan, 2012 [facility] [address] [id number] [address] [place] [address], [place] [address] Jan, [facility] [address] [id number] [address] [place] [address], [place] [address] Jan, [facility] [address] [id number] [address] [place] [address], [place] [address] Dec, [facility] [address] [id number] [address] [place] [address], [place] [address] Nov, [facility] [address] [id number] [address] [place] [address], [place] [address] Nov, [facility] [address] [id number] [address] [place] [address], [place] [address] Nov, [facility] [address] [id number] [address] [place] [address], [place] [address] Nov, [facility] [address] [id number] [address] [place] [address], [place] [address] Nov, [facility] [address] [id number] [address] [place] [address], [place] [address] Nov, [facility] [address] [id number] [address] [place] [address], [place] [address] Nov, [facility] [address] [id number] [address] [place] [address], [place] [address] Nov, [facility] [address] [id number] [address] [place] [address], [place] [address] Nov, [facility] [address] [id number] [address] [place] [address], [place] [address] 18 Nov, 2012 [facility] [address] [id number] [address] [place] [address], [place] [address] 18 Nov, 2012 [facility] [address] [id number] [address] [place] [address], [place] [address] 11 Nov, 2012 [facility] [address] [id number] [address] [place] [address], [place] [address] Nov, [facility] [address] [id number] [address] [place] [address], [place] [address] 17 Oct, 2012 [facility] [address] [id number] [address] [place] [address], [place] [address] Oct, [facility] [address] [id number] [address] [place] [address], [place] [address] Oct, [facility] [address] [id number] [address] [place] [address], [place] [address] Sep, [facility] [address] [id number] [address] [place] [address], [place] [address] 19 Sep, 2012 [facility] [address] [id number] [address] [place] [address], [place] [address] 10 Sep, 2012 [facility] [address] [id number] [address] [place] [address], [place] [address] 10 Sep, 2012 [facility] [address] [id number] [address] [place] [address], [place] [address] 27 Aug, 2012 [facility] [address] [id number] [address] [place] [address], [place] [address] 20 Aug, 2012 [facility] [address] [id number] [address] [place] [address], [place] [address] 24 Jul, 2012 [facility] [address] [id number] [address] [place] [address], [place] [address] 27 May, 2012 [facility] [address] [id number] [address] [place] [address], [place] [address] 14 May, 2012 [facility] [address] [id number] [address] [place] [address] [address] May, [facility] [address] [id number] [address] [place] [address], [place] [address] April, [facility] [address] [id number] [address] [place] [address], [place] [address] Mar, [facility] [address] [id number] [address] [place] [address], [place] [address] Mar, [facility] [address] [id number] [address] [place] [address], [place] [address] Mar, [facility] [address] [id number] [address] [place] [address], [place] [address] Jan, [facility] [address] [id number] [address] [place] [address], [place] [address] Jan, [facility] [address] [id number] [address] [place] [address], [place] [address] Jan, [facility] [address] [id number] [address] [place] [address], [place] [address] Dec, [facility] [address] [id number] [address] [place] [address], [place] [address] Dec, [facility] [address] [id number] [address] [place] [address], [place] [address] Dec, [facility] [address] [id number] [address] [place] [address], [place] [address] Dec, [facility] [address] [id number] [address] [place] [address], [place] [address] Nov, [facility] [address] [id number] [address] [place] [address], [place] [address] Nov, [facility] [address] [id number] [address] [place] [address], [place] [address] Nov, [facility] [address] [id number] [address] [place] [address], [place] [address] Oct, [facility] [address] [id number] [address] [place] [address], [place] [address] 31 Sep, 2011 [facility] [address] [id number] [address] [place] [address], [place] [address] 26 Sep, 2011 [facility] [address] [id number] [address] [place] [address], [place] [address] 13 Sep, 2011 [facility] [address] [id number] [address] [place] [address], [place] [address] 15 Nov, 2010 [facility] [address] [id number] [address] [place] [address], [place] [address] 23 Oct, 2010 [facility] [address] [id number] [address] [place] [address], [place] [address] 19 Oct, 2010 [facility] [address] [id number] [address] [place] [address], [place] [address] 18 Oct, 2010 [facility] [address] [id number] [address] [place] [address], [place] [address] 16 Oct, 2010 [facility] [address] [id number] [address] [place] [address], [place] [address] 11 Sep, 2010 [facility] [address] [id number] [address] [place] [address], [place] [address] April, [facility] [address] [id number] [address] [place] [address], [place] [address] 29 Nov, 2009 [facility] [address] [id number] [address] [place] [address], [place] [address] 24 Nov, 2009 [facility] [address] [id number] [address] [place] [address], [place] [address] 22 Nov, 2009 [facility] [address] [id number] [address] [place] [address], [place] [address] 10 Nov, 2009 [facility] [address] [id number] [address] [place] [address], [place] [address] 10 Nov, 2009 [facility] [address] [id number] [address] [place] [address], [place] [address] Oct, [facility] [place] [address] [facility] [id number] [address] [place] [address] Oct, [facility] [place] [address] [facility] [id number] [address] [place] [address] Sep, [facility] [place] [address] [facility] [id number] [address] [place] [address] Jan, IMMUNIZATIONS No Known Immunizations SOCIAL HISTORY [...] History 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
--- OUTSIDE RECORDS SUMMARY | 2020-04-18 20:15 | XMS REPORT ---
Author Author Ave AGUIRRE Organization [facility] Address [address] [place] [address] Care Team Providers Care Thread Spooler Name Role Phone WOLF AGUIRRE Unavailable PROBLEMS Type Condition ICD9-CM Code CEU38-XM Code Onset Dates Condition S tatus SNOMED Code Problem Generalized anxiety disorder F41.1 A ctive 60685454 Problem Failure to thrive in adult R62.7 Act mishel [id number] Problem Dysthymic disorder F34.1 Active 7 1552025 Problem Iron deficiency anemia secondary to inadequate d ietary iron intake D50.8 Active 495624391 Problem Poor appetite R63.0 Active 793565 06 Problem Reactive depression F32.9 Active 84036329 Problem Coarse tremors G25.2 Active 17526 004 Problem Oropharyngeal dysphagia R13.12 Active 55218004 Problem Sundowning F05 Active 218178962 Problem 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 Active 1819 3002 Problem Constipation, unspecified constipation type K59.00 Active 88424670 Problem Vascular dementia with behavior disturbance F01.51 Active 821449072879241 Problem Essential hypertension I10 Active 98581682 Problem Gastroesophageal reflux disease without esophagitis K21.9 Active 792093421 Problem Other chronic pain G89.29 Active 8 8996040 Problem Insomnia, unspecified type G47.00 Act mishel [id number] Problem Severe episode of recurrent major depressive disorder, without psychotic features F33.2 Active 62933369 Problem Slow transit constipation K59.01 Acti ve 82867037 Problem Mood disorder F39 Active 179269 05 Problem Irritable bowel syndrome with diarrhea K58.0 Active 796948950 Problem 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 Active 7145617 04 Problem Obsessive thinking F42.8 Active 6 0841274 Problem Dementia in other diseases c lassified elsewhere with behavioral disturbance F02.81 Active 303825637 Problem HTN (hypertension) I10 Active 3 4809018 Problem Other chronic pain G89.29 Active 8 8264581 Problem Dyspepsia K30 Active 625175038 Problem 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 Active 735979069790169 Problem Primary insomnia F51.01 Active 397 2004 Problem Alzheimer''s disease with late onset G30.1 Active 758125988 Problem Acute on chronic systolic congestive heart failure I50.23 Active 925393902 Problem Coronary artery disease invo lving wainwright coronary artery of wainwright heart without angina pectoris I25.10 Active 1641 510494033 Problem Restless legs G25.81 Active 052805 08 ALLERGIES No Information ENCOUNTERS Encounter Location Date Diagnosis [facility] [address] [address] 23 Jan, 2020 [place] [address] [address] Jan, [place] [address] [address] 10 Jan, 2020 Generalized anxiety disorder F41.1 [place] [address] [address] 08 Jan, 2020 Nausea R11.0 [place] [address] [address] 03 Jan, 2020 Dyspepsia K30 [place] [address] [address] Jan, [facility] [address] [address] Jan, [facility] [address] [address] Jan, [facility] [address] [address] Jan, [place] [address] [address] 21 Jan, 2020 [facility] [address] [place] [id number] Jan, Generalized anxiety disorder F41.1 [place] [address] [address] 18 Jan, [address] [id number] 13 Jan, 2020 Coronary artery disease involving wainwright coronary artery of wainwright heart without angina pectoris I25.10 [place] [address] [address] Jan, [place] [address] [address] Dec, Atherosclerotic heart disease of wainwright 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 [place] [address] [address] [facility], [facility] [address] [id number] Dec, Mood disorder F39 ; Acute on chronic systolic congestive heart failure I50.23 ; Obsessive thinking F42.8 and HTN (hypertension) I10 [address] [id number] Nov, Cough R05 [place] [address] [address] Nov, [place] [address] [address] Oct, [address] [id number] Oct, Obsessive thinking F42.8 ; Generalized anxiety disorder F41.1 ; Primary insomnia F51.01 and Restless legs G25.81 [place] [address] [address] Sep, [address] [id number] Aug, Coronary artery disease involving wainwright coronary artery of wainwright heart without angina pectoris I25.10 [place] [address] [address] Jul, [place] [address] [address] Jul, [facility] [address] [place] [address] [id number] [place] [address] Jul, [facility] [id number] [place] [address] Jul, [facility] [id number] [place] [address] Jul, [facility] [id number] Jun, Acute on chronic systolic congestive heart failure I50.23 and Atherosclerotic heart disease of wainwright 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 [facility] [id number] [place] [address] Jun, [facility] [id number] [place] [address] Jun, [facility] [id number] [place] [address] Jun, [facility] [address] [place] [address] [id number] [place] [address] Jun, [facility] [address] [id number] [place] [address] Jun, [facility] [address] [id number] [place] [address] Jun, [facility] [address] [address] [id number] [place] [address] Jun, [facility] [id number] May, Pressure injury of right ankle, stage 2 L89.512 and Constipation, unspecified constipation type K59.00 [facility] [address] [place] [id number] [place] [address] May, [facility] [address] [id number] April, Constipation, unspecified constipation type K59.00 ; Pressure injury of right ankle, stage 1 L89.511 and Vascular dementia with behavior disturbance F01.51 [facility] [address] [place] [address] [id number] [place] [address] Mar, [facility] [address] [address] Mar, [facility] [address] [address] [id number] [place] [address] Mar, [facility] [address] [address] Mar, [facility] [address] [address] Jan, [facility] [address] [address] Jan, [facility] [address] [address] Jan, [facility] [place] [address] [place] [id number] Jan, Pneumonia due to infectious organism, unspecified laterality, unspecified part of lung J18.9 ; Fall from bed, sequela W06.XXXS ; Hyponatremia E87.1 and Slow transit constipation K59.01 [place] [address] [place] [id number] [place] [address] Jan, [place] [address] [place] [address] [place] [address] Jan, [facility] [address] [address] Jan, [facility] [address] [place] [id number] [place] [address] Dec, [facility] [place] [address] [place] [id number] Dec, Other depression F32.89 ; Alzheimer''s disease with late onset G30.1 and Dementia in other diseases classified elsewhere with behavioral disturbance F02.81 [place] [address] [address] Dec, [facility] [place] [address] [place] [id number] Dec, [facility] [place] [address] [place] [id number] Nov, Generalized anxiety disorder F41.1 and Obsessive thinking F42.8 [facility] [address] [place] [id number] [place] [address] Nov, [facility] [address] [address] Oct, [facility] [address] [address] Oct, [facility] [address] [address] Oct, [facility] [address] [address] Oct, [facility] [address] [address] Oct, [facility] [place] [address] [place] [id number] Oct, Generalized anxiety disorder F41.1 and Obsessive thinking F42.8 [facility] [address] [place] [id number] [place] [address] Sep, [facility] [address] [address] Sep, [facility] [address] [address] Sep, [facility] [address] [address] Sep, [facility] [place] [address] [place] [id number] Sep, Generalized anxiety disorder F41.1 ; Obsessive thinking F42.8 and Mood disorder F39 [facility] [address] [place] [id number] [place] [address] Sep, [facility] [address] [address] Sep, [facility] [address] [id number] Sep, [facility] [address] [address] Sep, [facility] [address] [address] Sep, [facility] [address] [id number] Sep, Obsessive thinking F42.8 [facility] [address] [address] Sep, [facility] [address] [address] Sep, [facility] [address] [address] Aug, [facility] [address] [address] Aug, [facility] [address] [address] Aug, Positive urine drug screen R82.[address] [id number] Aug, [facility] [address] [address] Aug, [facility] [address] [address] Aug, [facility] [address] [address] Aug, Irritable bowel syndrome with diarrhea K 58.0 [facility] [address] [address] Aug, [facility] [address] [address] Aug, Obsessive thinking F42.8 ; Insomnia, uns pecified type G47.00 and Other chronic pain G89.29 [facility] [place] [id number] Aug, Obsessive thinking F42.8 ; Irritable bowel syndrome with diarrhea K58.0 ; Pain in right foot M79.671 ; Pain of left foot M79.672 and Gastroesophageal reflux disease without esophagitis K21.9 [facility] [address] [id number] [place] [address] Aug, [facility] [address] [address] Jul, [facility] [address] [address] Jun, [place] [address] [address] Jun, [facility] [place] [address] [place] [id number] Jun, Left lower quadrant pain R10.32 and Left leg pain M79.605 [place] [address] [address] Jun, [facility] [place] [address] [place] [id number] Jun, Pain in left hip M25.552 ; Pain in right hip M25.551 and Primary insomnia F51.01 [place] [address] [place] [id number] [place] [address] Jun, [facility] [place] [address] [place] [id number] May, [facility] [address] [address] May, [place] [address] [address] May, [facility] [place] [address] [place] [id number] May, Mood disorder F39 [facility] [address] [place] [address] [id number] [place] [address] May, [facility] [address] [place] [address] [place] [address] April, [facility] [place] [address] [id number] April, Generalized anxiety disorder F41.1 ; Obsessive thinking F42.8 and Insomnia, unspecified type G47.00 [place] [address] [address] April, [place] [address] [address] April, Rash of face R21 [place] [address] [address] Mar, [place] [address] [address] Mar, [place] [address] [address] Mar, [place] [address] [address] Jan, [place] [address] [address] Jan, [facility] [address] [place] [id number] Jan, Constipation, unspecified constipation type K59.00 and Other chronic pain G89.29 [place] [address] [address] Jan, [facility] [place] [address] [place] [id number] Jan, Obsessive thinking F42.8 and Coarse tremors G25.2 [place] [address] [place] [id number] [place] [id number] Jan, [place] [address] [id number] [place] [id number] Jan, [facility] [place] [address] [id number] Jan, Generalized anxiety disorder F41.1 ; Obsessive thinking F42.8 ; Callus of foot L84 and 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 [place] [address] [address] Dec, Generalized anxiety disorder F41.1 and S evere episode of recurrent major depressive disorder, without psychotic features F33.2 [place] [address] [address] Nov, [place] [address] [address] Nov, [facility] [place] [address] [place] [id number] Nov, Oropharyngeal dysphagia R13.12 ; Generalized anxiety disorder F41.1 and 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 [place] [address] [address] Nov, [place] [address] [place] [id number] [place] [id number] Nov, [place] [address] [address] Nov, [place] [address] [address] Nov, [place] [address] [address] Oct, Constipation, unspecified constipation t ype K59.00 and Mood disorder F39 [place] [address] [address] Oct, [facility] [address] [id number] [place] [id number] Sep, [facility] [address] [id number] [place] [id number] Sep, [facility] [address] [id number] [place] [id number] Sep, [facility] [address] [id number] [place] [address] Sep, [facility] [place] [address] [id number] Sep, Generalized abdominal pain R10.84 [place] [address] [facility] [place] [address] Sep, [place] [address] [place] [id number] [facility] [facility] [place] [place] [id number] Sep, Generalized anxiety disorder F41.1 and P rimary insomnia F51.01 [place] [address] [id number] [place] [id number] Aug, [place] [address] [id number] [place] [id number] Aug, Generalized anxiety disorder F41.1 [place] [address] [place] [id number] [place] [address] Jul, [facility] [place] [address] [id number] Jul, Obsessive thinking F42.8 [place] [address] [id number] [place] [address] Jul, Generalized anxiety disorder F41.1 and I rritable bowel syndrome with diarrhea K58.0 [place] [address] [id number] [place] [id number] Jul, Generalized anxiety disorder F41.1 [place] [address] [place] [id number] [place] [id number] Jun, Generalized anxiety disorder F41.1 [place] [address] [place] [id number] [place] [address] May, [facility] [address] [id number] May, Generalized anxiety disorder F41.1 ; Irritable bowel syndrome with diarrhea K58.0 and Coarse tremors G25.2 [place] [address] [address] April, [place] [address] [place] [id number] [place] [address] April, [facility] [address] [address] April, [facility] [address] [address] Mar, [facility] [place] [address] [id number] Mar, Severe episode of recurrent major depressive disorder, without psychotic features F33.2 and Pain in left hip M25.552 [facility] [address] [address] Mar, [place] [address] [address] Mar, [place] [address] [address] Mar, [place] [address] [address] Mar, Pain in right hip M25.551 and Self-care deficit in patient living alone R46.89 [facility] [address] [facility] [id number] [address] [place] [address] Jan, Other chronic pain G89.29 ; Pain in left hip M25.552 and Slow transit constipation K59.01 [place] [address] [address] Jan, [facility] [address] [address] Dec, Other depression F32.89 ; Constipation, unspecified constipation type K59.00 and Insomnia, unspecified type G47.00 [place] [address] [address] Nov, Reactive depression F32.9 ; Chronic idio pathic constipation K59.04 ; Generalized anxiety disorder F41.1 ; Coarse tremors G25.2 ; Gastroesophageal reflux disease without esophagitis K21.9 ; Dysthymic disorder F34.1 ; Vitamin deficiency, unspecified E56.9 and Primary insomnia F51.01 [place] [address] [address] Nov, [place] [address] [address] Nov, [place] [address] [address] Nov, [place] [address] [address] Nov, Reactive depression F32.9 ; Essential hy pertension I10 ; Generalized anxiety disorder F41.1 ; Atherosclerotic heart disease of wainwright 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 ; Pain in right hip M25.551 ; Other chronic pain G89.29 ; Chronic idiopathic constipation K59.04 ; Primary insomnia F51.01 ; Coarse tremors G25.2 ; Gastroesophageal reflux disease without esophagitis K21.9 ; Iron deficiency anemia secondary to inadequate dietary iron intake D50.8 and Vitamin deficiency, unspecified E56.9 [place] [address] [address] Oct, [place] [address] [address] Oct, [place] [address] [address] Oct, [place] [address] [address] 16 Oct, 2016 Generalized anxiety disorder F41.1 ; Poo r appetite R63.0 ; Dehydration E86.0 and Failure to thrive in adult R62.7 [place] [address] [address] 07 Oct, 2016 Generalized anxiety disorder F41.1 and F ailure to thrive in adult R62.7 [place] [address] [address] 03 Oct, 2016 [place] [id number] [place] [address] Oct, [facility] [address] [place] [id number] [place] [address] Sep, Vaginal discharge N89.8 and Acute cystitis with hematuria N30.01 [place] [address] [address] Sep, [place] [address] [address] Sep, [place] [address] [address] Sep, Dysthymic disorder F34.1 ; Acute vaginit is N76.0 ; Dysuria R30.0 and Vaginal yeast infection B37.3 [place] [address] [address] Aug, [place] [address] [address] Aug, [facility] [address] [place] [id number] [place] [address] Aug, Foul smelling urine R82.90 ; Rapid heart rate R00.0 and Flatulence R14.3 [place] [address] [address] Aug, [place] [address] [address] Jul, Constipation, unspecified constipation t ype K59.00 ; Weak R53.1 ; Poor appetite R63.0 ; Coronary artery disease involving wainwright heart without angina pectoris, unspecified vessel or lesion type I25.10 ; Fatigue, unspecified type R53.83 ; Urinary incontinence, unspecified type R32 and Insomnia, unspecified type G47.00 [place] [address] [address] Jul, [place] [address] [address] Jun, Dysuria R30.0 [facility] [id number] [place] [address] Jun, [facility] [address] [address] Jun, Urinary tract infection, site not specif ied N39.0 ; Acute vaginitis N76.0 and Diarrhea, unspecified type R19.7 [facility] [address] [address] May, [facility] [address] [address] April, [facility] [address] [id number] [place] [id number] April, Encounter for dental examination Z01.20 [facility] [address] [address] April, [facility] [address] [address] April, Tremor R25.1 and Episodic tension-type h eadache, not intractable G44.219 [facility] [address] [address] Mar, [facility] [address] [address] Jan, Mood disorder F39 [facility] [address] [facility] [id number] [address] [place] [address] Jan, [facility] [address] [id number] [place] [address] Jan, [facility] [address] [address] Jan, [facility] [address] [address] Jan, [facility] [address] [address] Jan, [facility] [address] [id number] [place] [address] Jan, [facility] [address] [facility] [id number] [address] [address] Dec, Acute diarrhea R19.7 [facility] [address] [id number] [place] [address] Dec, [facility] [address] [address] Dec, [facility] [address] [address] Dec, [facility] [address] [facility] [id number] [address] [address] Dec, N&V (nausea and vomiting) R1 1.2 [facility] [address] [address] Dec, Generalized anxiety disorder F41.1 [facility] [address] [address] Dec, Generalized anxiety disorder F41.1 [facility] [address] [address] Nov, Post concussion syndrome F07.81 [facility] [id number] [place] [address] Nov, Generalized anxiety disorder F41.1 [facility] [address] [address] Nov, [facility] [address] [address] Nov, Generalized anxiety disorder F41.1 [facility] [address] [id number] [place] [id number] Oct, Dental caries K02.9 [facility] [id number] [place] [address] Oct, [facility] [address] [id number] [place] [id number] Oct, Dental examination Z01.20 [facility] [address] [id number] [place] [id number] Oct, Encounter for dental examination Z01.20 [facility] [address] [address] Oct, CAD (coronary artery disease) I25.10 [facility] [address] [address] Sep, Generalized anxiety disorder F41.1 [facility] [address] [address] Sep, [facility] [address] [address] Sep, Rash and other nonspecific skin eruption R21 and Yeast vaginitis B37.3 [facility] [address] [address] Sep, Generalized anxiety disorder F41.1 [facility] [address] [address] Aug, Insect bites 919.4 and Hemorrhoids 455.6 [facility] [address] [address] Aug, Generalized anxiety disorder 300.02 [facility] [address] [address] 08 Aug, 2015 [facility] [address] [address] Aug, [facility] [address] [address] Aug, Generalized anxiety disorder 300.02 ; No condition on Taiban II V71.09 ; Heart problem 429.9 and Hypertension 401.9 [facility] [address] [address] Aug, [facility] [address] [address] Jul, [facility] [id number] [place] [address] Jul, [facility] [address] [place] [address] Jul, [facility] [id number] [place] [address] Jul, [facility] [address] [address] Jul, Rash 782.1 [facility] [id number] [place] [address] Jul, UTI (urinary tract infection) 599.0 [facility] [id number] [place] [address] Jul, [facility] [address] [address] Jun, Dysthymia 300.4 and Anxiety 300.00 [facility] [address] [id number] [place] [address] Jun, 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 [facility] [id number] [place] [address] May, [facility] [id number] [place] [address] May, [facility] [address] [id number] [place] [address] May, Unspecified breast screening V76.10 [facility] [address] [facility] [place] [id number] May, Dental examination V72.2 [facility] [id number] [place] [address] April, [facility] [address] [address] April, [facility] [facility] [address] [id number] April, Dental examination V72.2 [facility] [address] [facility] [id number] [place] [id number] April, Dental examination V72.2 [facility] [address] [id number] [place] [address] 14 Mar, 2015 [facility] [address] [id number] [place] [address] Mar, [facility] [address] [id number] [place] [address] 25 Jan, 2015 [facility] [address] [id number] [place] [address] 25 Jan, 2015 [facility] [address] [id number] [place] [address] 18 Jan, 2015 [facility] [address] [id number] [place] [address] 18 Jan, 2015 [facility] [address] [id number] [place] [address] 16 Jan, 2015 [facility] [address] [id number] [place] [address] 16 Jan, 2015 [facility] [address] [id number] [place] [address] 13 Jan, 2015 [facility] [address] [id number] [place] [address] 13 Jan, 2015 [facility] [address] [id number] [place] [address] 11 Jan, 2015 [facility] [address] [id number] [place] [address] 11 Jan, 2015 [facility] [address] [id number] [place] [address] 11 Jan, 2015 [facility] [address] [id number] [place] [address] 11 Jan, 2015 [facility] [address] [id number] [place] [address] 09 Jan, 2015 [facility] [address] [id number] [place] [address] Jan, [facility] [address] [id number] [place] [address] Jan, [facility] [address] [id number] [place] [address] Jan, [facility] [address] [id number] [place] [address] Jan, [facility] [address] [id number] [place] [address] Jan, [facility] [address] [id number] [place] [address] Jan, [facility] [address] [id number] [place] [address] Jan, [facility] [address] [id number] [place] [address] Jan, [facility] [address] [id number] [place] [address] Jan, [facility] [address] [id number] [place] [address] Dec, [facility] [address] [id number] [place] [address] Dec, [facility] [address] [id number] [place] [address] Dec, [facility] [address] [id number] [place] [address] Dec, [facility] [address] [id number] [place] [address] Nov, [facility] [id number] [place] [address] Nov, [facility] [address] [id number] [place] [address] Nov, [facility] [address] [id number] [place] [address] Nov, [facility] [address] [id number] [place] [address] Nov, [facility] [address] [id number] [place] [address] Nov, [facility] [address] [id number] [place] [address] Nov, [facility] [address] [id number] [place] [address] Oct, [facility] [address] [id number] [place] [address] Oct, [facility] [address] [id number] [place] [address] Oct, [facility] [address] [id number] [place] [address] Oct, [facility] [address] [id number] [place] [address] Oct, [facility] [address] [id number] [place] [address] Oct, [facility] [address] [id number] [place] [address] Oct, [facility] [address] [id number] [place] [address] Oct, [facility] [address] [id number] [place] [address] Oct, [facility] [address] [id number] [place] [address] Oct, [facility] [address] [id number] [place] [address] Oct, [facility] [address] [id number] [place] [address] Oct, [facility] [address] [id number] [place] [address] Sep, [facility] [address] [id number] [place] [address] Sep, [facility] [address] [facility] [id number] [place] [address] Sep, [facility] [address] [facility] [id number] [facility] [place] [address] Sep, [facility] [address] [id number] [place] [address] Jul, [facility] [address] [facility] [id number] [place] [address] Jul, [facility] [address] [facility] [id number] [facility] [place] [address] Jul, [facility] [address] [facility] [id number] [place] [address] Jul, [facility] [address] [id number] [place] [address] Jun, [facility] [address] [id number] [place] [address] Jun, [facility] [address] [facility] [id number] [place] [address] Jun, [facility] [address] [id number] [place] [address] Jun, [facility] [address] [id number] [place] [address] May, [facility] [address] [id number] [place] [address] May, [facility] [address] [facility] [id number] [place] [address] April, [facility] [address] [facility] [id number] [place] [address] April, [facility] [address] [id number] [place] [address] April, [facility] [address] [id number] [place] [address] April, [facility] [address] [id number] [place] [address] April, [facility] [address] [facility] [id number] [place] [address] April, [facility] [address] [id number] [place] [address] April, [facility] [address] [id number] [place] [address] April, [facility] [address] [id number] [place] [address] April, [facility] [address] [id number] [place] [address] Mar, [facility] [address] [id number] [place] [address] Mar, [facility] [address] [id number] [place] [address] Mar, [facility] [address] [id number] [place] [address] Mar, [facility] [address] [id number] [place] [address] Jan, [facility] [address] [id number] [place] [address] Jan, [facility] [address] [id number] [place] [address] Jan, [facility] [address] [id number] [place] [address] Jan, [facility] [address] [id number] [place] [address] Jan, [facility] [address] [id number] [place] [address] Jan, [facility] [address] [id number] [place] [address] Jan, [facility] [address] [id number] [place] [address] Jan, [facility] [address] [id number] [place] [address] Jan, [facility] [address] [id number] [place] [address] Jan, [facility] [address] [id number] [place] [address] Jan, [facility] [address] [id number] [place] [address] Jan, [facility] [address] [id number] [place] [address] Dec, [facility] [address] [id number] [place] [address] Dec, [facility] [address] [id number] [place] [address] Dec, [facility] [address] [id number] [place] [address] Dec, [facility] [address] [id number] [place] [address] Nov, [facility] [address] [id number] [place] [address] Nov, [facility] [address] [id number] [place] [address] Nov, [facility] [address] [id number] [place] [address] Nov, [facility] [address] [id number] [place] [address] Oct, [facility] [address] [id number] [place] [address] Oct, [facility] [address] [id number] [place] [address] Sep, [facility] [address] [id number] [place] [address] Sep, [facility] [address] [id number] [facility] [place] [address] Jul, [facility] [address] [facility] [id number] [facility] [place] [address] Jul, [facility] [address] [facility] [id number] [facility] [place] [address] Jun, [facility] [address] [id number] [facility] [place] [address] Jun, [facility] [address] [id number] [facility] [place] [address] Jun, [facility] [address] [facility] [id number] [facility] [place] [address] May, [facility] [address] [id number] [place] [address] May, [facility] [address] [id number] [place] [address] May, [facility] [address] [id number] [place] [address] May, [facility] [address] [id number] [place] [address] May, [facility] [address] [id number] [place] [address] April, [facility] [address] [id number] [place] [address] April, [facility] [address] [id number] [place] [address] April, [facility] [address] [facility] [id number] [place] [address] April, [facility] [address] [id number] [place] [address] April, [facility] [address] [id number] [place] [address] April, [facility] [address] [id number] [place] [address] Mar, [facility] [address] [id number] [place] [address] 15 Mar, 2013 [facility] [address] [id number] [place] [address] Jan, [facility] [address] [id number] [place] [address] Jan, [facility] [address] [id number] [place] [address] Jan, [facility] [address] [id number] [place] [address] 05 Jan, 2013 [facility] [address] [id number] [place] [address] Jan, [facility] [address] [id number] [place] [address] Jan, [facility] [address] [id number] [place] [address] 05 Jan, 2013 [facility] [address] [id number] [place] [address] Jan, [facility] [address] [id number] [place] [address] Jan, [facility] [address] [id number] [place] [address] Jan, [facility] [address] [id number] [place] [address] Jan, [facility] [address] [id number] [place] [address] Dec, [facility] [address] [id number] [place] [address] Nov, [facility] [address] [id number] [place] [address] Nov, [facility] [address] [id number] [place] [address] Nov, [facility] [address] [id number] [place] [address] Nov, [facility] [address] [id number] [place] [address] Nov, [facility] [address] [id number] [place] [address] Nov, [facility] [address] [id number] [place] [address] Nov, [facility] [address] [id number] [place] [address] Nov, [facility] [address] [id number] [place] [address] Nov, [facility] [address] [id number] [place] [address] Nov, [facility] [address] [id number] [place] [address] Nov, [facility] [address] [id number] [place] [address] Nov, [facility] [address] [id number] [place] [address] Nov, [facility] [address] [id number] [place] [address] Oct, [facility] [address] [id number] [place] [address] Oct, [facility] [address] [id number] [place] [address] Oct, [facility] [address] [id number] [place] [address] Sep, [facility] [address] [id number] [place] [address] Sep, [facility] [address] [id number] [place] [address] Sep, [facility] [address] [id number] [place] [address] Sep, [facility] [address] [id number] [place] [address] 27 Aug, 2012 [facility] [address] [id number] [place] [address] 20 Aug, 2012 [facility] [address] [id number] [place] [address] 24 Jul, 2012 [facility] [address] [id number] [place] [address] May, [facility] [address] [id number] [place] [address] May, [facility] [address] [id number] [place] [address] May, [facility] [address] [id number] [place] [address] April, [facility] [address] [id number] [place] [address] Mar, [facility] [address] [id number] [place] [address] Mar, [facility] [address] [id number] [place] [address] Mar, [facility] [address] [id number] [place] [address] Jan, [facility] [address] [id number] [place] [address] Jan, [facility] [address] [id number] [place] [address] Jan, [facility] [address] [id number] [place] [address] Dec, [facility] [id number] [place] [address] Dec, [facility] [address] [id number] [place] [address] Dec, [facility] [address] [id number] [place] [address] Dec, [facility] [address] [id number] [place] [address] 28 Nov, 2011 [facility] [address] [id number] [place] [address] Nov, [facility] [address] [id number] [place] [address] Nov, [facility] [address] [id number] [place] [address] Oct, [facility] [address] [id number] [place] [address] Sep, [facility] [address] [id number] [place] [address] Sep, [facility] [address] [id number] [place] [address] Sep, [facility] [id number] [place] [address] 15 Nov, 2010 [facility] [address] [id number] [place] [address] Oct, [facility] [address] [id number] [place] [address] Oct, [facility] [address] [id number] [place] [address] Oct, [facility] [address] [id number] [place] [address] 16 Oct, 2010 [facility] [address] [id number] [place] [address] Sep, [facility] [address] [id number] [place] [address] April, [facility] [address] [id number] [place] [address] Nov, [facility] [address] [id number] [place] [address] 24 Nov, 2009 [facility] [address] [id number] [place] [address] Nov, [facility] [address] [id number] [place] [address] Nov, [facility] [address] [id number] [place] [address] Nov, [facility] [address] [id number] [place] [address] Oct, [facility] [address] [id number] [place] [address] Oct, [facility] [address] [id number] [place] [address] Sep, [facility] [address] [id number] [place] [address] Jan, IMMUNIZATIONS No Known Immunizations SOCIAL HISTORY [...] thoughts Medical History Depression Medical History At [facility] 04/2016 Started on Eliquis Medical History [...] History Intertrechanteric hip fx 04/27/16 [facility] Hx [facility] 3 inpatient psych treatments in past in [place] oct 2016 [facility]
--- OUTSIDE RECORDS SUMMARY | 2020-04-18 20:16 | XMS REPORT ---
Author Author Ave AGUIRRE Organization [facility] Address [address] [place] [address] Care Team Providers Care Fish Technologist Name Role Phone WOLF AGUIRRE Unavailable PROBLEMS Type Condition ICD9-CM Code SKK98-OL Code Onset Dates Condition S tatus SNOMED Code Problem Generalized anxiety disorder F41.1 A ctive 67082194 Problem Failure to thrive in adult R62.7 Act mishel [id number] Problem Dysthymic disorder F34.1 Active 7 6641520 Problem Iron deficiency anemia secondary to inadequate d ietary iron intake D50.8 Active 347268052 Problem Poor appetite R63.0 Active 413089 06 Problem Reactive depression F32.9 Active 79225379 Problem Coarse tremors G25.2 Active 17443 004 Problem Oropharyngeal dysphagia R13.12 Active 11490674 Problem Sundowning F05 Active 820128353 Problem 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 Active 1819 3002 Problem Constipation, unspecified constipation type K59.00 Active 88315388 Problem Vascular dementia with behavior disturbance F01.51 Active [id number] Problem Essential hypertension I10 Active 12764553 Problem Gastroesophageal reflux disease without esophagitis K21.9 Active 553762758 Problem Other chronic pain G89.29 Active 8 2952325 Problem Insomnia, unspecified type G47.00 Act mishel 133144262 Problem Severe episode of recurrent major depressive disorder, without psychotic features F33.2 Active 14802036 Problem Slow transit constipation K59.01 Acti ve 04753750 Problem Mood disorder F39 Active 340785 05 Problem Irritable bowel syndrome with diarrhea K58.0 Active 357246542 Problem 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 Active 4788269 04 Problem Obsessive thinking F42.8 Active 6 3716036 Problem Dementia in other diseases c lassified elsewhere with behavioral disturbance F02.81 Active 494172924 Problem HTN (hypertension) I10 Active 3 7947022 Problem Other chronic pain G89.29 Active 8 9960871 Problem Dyspepsia K30 Active 182060867 Problem 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 Active 417314956721775 Problem Primary insomnia F51.01 Active 397 2004 Problem Alzheimer''s disease with late onset G30.1 Active 018680554 Problem Acute on chronic systolic congestive heart failure I50.23 Active 275848680 Problem Coronary artery disease invo lving resighini coronary artery of resighini heart without angina pectoris I25.10 Active 1641 323119602 Problem Restless legs G25.81 Active 829041 08 ALLERGIES No Information ENCOUNTERS Encounter Location Date Diagnosis [place] [address] [address] 08 Jan, 2020 Nausea R11.0 [place] [address] [address] 03 Jan, 2020 Dyspepsia K30 [place] [address] [address] 28 Jan, 2020 [place] [address] [address] 28 Jan, 2020 [place] [address] [address] 25 Jan, 2020 [place] [address] [address] 23 Jan, 2020 [place] [address] [address] 21 Jan, [address] [id number] 20 Jan, 2020 Generalized anxiety disorder F41.1 [place] [address] [address] 18 Jan, [address] [id number] 13 Jan, 2020 Coronary artery disease involving resighini coronary artery of resighini heart without angina pectoris I25.10 [place] [address] [address] Jan, [facility] [address] [place] [id number] [place] [address] Dec, Atherosclerotic heart disease of resighini 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 [facility] [address] [place] [id number] [place] [address] Dec, [facility] [id number] Dec, Mood disorder F39 ; Acute on chronic systolic congestive heart failure I50.23 ; Obsessive thinking F42.8 and HTN (hypertension) I10 [address] [id number] Nov, Cough R05 [place] [address] [address] Nov, [facility] [address] [address] Oct, [facility] [address] [id number] Oct, Obsessive thinking F42.8 ; Generalized anxiety disorder F41.1 ; Primary insomnia F51.01 and Restless legs G25.81 [facility] [address] [address] Sep, [facility] [id number] Aug, Coronary artery disease involving resighini coronary artery of resighini heart without angina pectoris I25.10 [facility] [address] [address] Jul, [facility] [address] [address] Jul, [facility] [address] [address] Jul, [facility] [address] [address] Jul, [facility] [address] [address] Jul, [facility] [place] [address] [place] [id number] Jun, Acute on chronic systolic congestive heart failure I50.23 and Atherosclerotic heart disease of resighini 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 [facility] [address] [place] [id number] [place] [address] Jun, [facility] [address] [id number] [place] [address] Jun, [facility] [address] [address] Jun, [facility] [address] [address] Jun, [facility] [address] [place] [id number] [place] [address] Jun, [facility] [address] [place] [address] [id number] [place] [address] Jun, [facility] [address] [id number] [place] [address] Jun, [facility] [address] [place] [id number] May, Pressure injury of right ankle, stage 2 L89.512 and Constipation, unspecified constipation type K59.00 [facility] [address] [place] [address] [id number] [place] [address] May, [facility] [place] [address] [place] [id number] April, Constipation, unspecified constipation type K59.00 ; Pressure injury of right ankle, stage 1 L89.511 and Vascular dementia with behavior disturbance F01.51 [facility] [address] [address] [place] [address] Mar, [facility] [address] [address] Mar, [facility] [address] [place] [id number] [place] [address] Mar, [place] [address] [address] Mar, [place] [address] [address] Jan, [facility] [address] [address] Jan, [place] [address] [address] Jan, [facility] [address] [id number] Jan, Pneumonia due to infectious organism, unspecified laterality, unspecified part of lung J18.9 ; Fall from bed, sequela W06.XXXS ; Hyponatremia E87.1 and Slow transit constipation K59.01 [place] [address] [address] Jan, [place] [address] [address] Jan, [place] [address] [address] Jan, [place] [address] [address] Dec, [facility] [address] [id number] Dec, Other depression F32.89 ; Alzheimer''s disease with late onset G30.1 and Dementia in other diseases classified elsewhere with behavioral disturbance F02.81 [place] [address] [address] Dec, [facility] [address] [id number] Dec, [facility] [address] [id number] Nov, Generalized anxiety disorder F41.1 and Obsessive thinking F42.8 [place] [address] [address] Nov, [place] [address] [place] [address] [id number] [place] [address] Oct, [facility] [address] [place] [address] [id number] [place] [address] Oct, [facility] [address] [place] [address] [id number] [place] [address] Oct, [facility] [address] [place] [address] [id number] [place] [address] Oct, [facility] [address] [place] [address] [id number] [place] [address] Oct, [facility] [place] [address] [place] [id number] Oct, Generalized anxiety disorder F41.1 and Obsessive thinking F42.8 [facility] [address] [place] [address] [id number] [place] [address] Sep, [facility] [address] [place] [address] [id number] [place] [address] Sep, [facility] [address] [place] [address] [id number] [place] [address] Sep, [facility] [address] [place] [id number] [place] [address] Sep, [facility] [address] [place] [id number] Sep, Generalized anxiety disorder F41.1 ; Obsessive thinking F42.8 and Mood disorder F39 [facility] [address] [place] [id number] [place] [address] Sep, [facility] [address] [id number] [place] [address] Sep, [facility] [address] [place] [id number] Sep, [facility] [address] [place] [id number] [place] [address] Sep, [facility] [address] [id number] [place] [address] Sep, [facility] [address] [place] [id number] Sep, Obsessive thinking F42.8 [facility] [address] [address] Sep, [facility] [address] [address] Sep, [facility] [address] [address] Aug, [facility] [address] [address] Aug, [facility] [address] [address] Aug, Positive urine drug screen R82.[address] [facility] [address] [id number] Aug, [facility] [address] [address] Aug, [facility] [address] [address] Aug, [facility] [address] [address] Aug, Irritable bowel syndrome with diarrhea K 58.0 [facility] [address] [address] Aug, [facility] [address] [address] Aug, Obsessive thinking F42.8 ; Insomnia, uns pecified type G47.00 and Other chronic pain G89.29 [facility] [address] [place] [id number] Aug, Obsessive thinking F42.8 ; Irritable bowel syndrome with diarrhea K58.0 ; Pain in right foot M79.671 ; Pain of left foot M79.672 and Gastroesophageal reflux disease without esophagitis K21.9 [facility] [address] [address] Aug, [facility] [address] [place] [address] [id number] [place] [address] Jul, [facility] [address] [address] Jun, [facility] [address] [place] [address] [id number] [place] [address] Jun, [facility] [address] [place] [id number] Jun, Left lower quadrant pain R10.32 and Left leg pain M79.605 [facility] [address] [address] Jun, [facility] [address] [place] [id number] Jun, Pain in left hip M25.552 ; Pain in right hip M25.551 and Primary insomnia F51.01 [place] [address] [address] Jun, [facility] [address] [place] [id number] May, [facility] [address] [address] May, [facility] [address] [address] May, [facility] [address] [id number] May, Mood disorder F39 [place] [address] [address] May, [facility] [address] [address] April, [facility] [address] [id number] April, Generalized anxiety disorder F41.1 ; Obsessive thinking F42.8 and Insomnia, unspecified type G47.00 [place] [address] [address] April, [place] [address] [address] April, Rash of face R21 [place] [address] [address] Mar, [place] [address] [address] Mar, [place] [address] [address] Mar, [place] [address] [address] Jan, [place] [address] [address] Jan, [facility] [address] [id number] Jan, Constipation, unspecified constipation type K59.00 and Other chronic pain G89.29 [place] [address] [address] Jan, [facility] [address] [place] [id number] Jan, Obsessive thinking F42.8 and Coarse tremors G25.2 [place] [address] [place] [id number] [place] [id number] Jan, [place] [address] [place] [id number] [facility] [place] [id number] 06 Jan, 2018 [facility] [address] [place] [id number] Jan, Generalized anxiety disorder F41.1 ; Obsessive thinking F42.8 ; Callus of foot L84 and 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 [place] [address] [address] Dec, Generalized anxiety disorder F41.1 and S evere episode of recurrent major depressive disorder, without psychotic features F33.2 [place] [address] [address] Nov, [facility] [address] [place] [id number] [place] [address] Nov, [facility] [address] [place] [id number] Nov, Oropharyngeal dysphagia R13.12 ; Generalized anxiety disorder F41.1 and 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 [facility] [address] [address] Nov, [facility] [address] [place] [id number] [place] [id number] Nov, [facility] [address] [address] Nov, [facility] [address] [place] [id number] [place] [address] Nov, [facility] [address] [address] Oct, Constipation, unspecified constipation t ype K59.00 and Mood disorder F39 [facility] [address] [place] [id number] [place] [address] Oct, [facility] [address] [place] [id number] [place] [id number] Sep, [facility] [address] [place] [id number] [place] [id number] Sep, [facility] [address] [place] [id number] [place] [id number] Sep, [facility] [address] [place] [id number] [place] [id number] Sep, [facility] [address] [facility] [place] [id number] Sep, Generalized abdominal pain R10.84 [facility] [address] [place] [id number] [place] [address] Sep, [facility] [address] [place] [id number] [place] [id number] Sep, Generalized anxiety disorder F41.1 and P rimary insomnia F51.01 [facility] [address] [place] [id number] [place] [id number] Aug, [facility] [address] [place] [id number] [facility] [place] [place] [id number] Aug, Generalized anxiety disorder F41.1 [facility] [address] [place] [address] [id number] [place] [address] Jul, [facility] [address] [id number] Jul, Obsessive thinking F42.8 [place] [address] [address] Jul, Generalized anxiety disorder F41.1 and I rritable bowel syndrome with diarrhea K58.0 [place] [address] [place] [id number] [facility] [place] [id number] Jul, Generalized anxiety disorder F41.1 [place] [address] [place] [id number] [place] [id number] Jun, Generalized anxiety disorder F41.1 [place] [address] [address] May, [facility] [address] [id number] May, Generalized anxiety disorder F41.1 ; Irritable bowel syndrome with diarrhea K58.0 and Coarse tremors G25.2 [facility] [address] [address] April, [facility] [address] [address] April, [facility] [address] [address] April, [facility] [address] [address] Mar, [facility] [address] [place] [id number] Mar, Severe episode of recurrent major depressive disorder, without psychotic features F33.2 and Pain in left hip M25.552 [facility] [address] [id number] [place] [address] Mar, [facility] [address] [id number] [place] [address] Mar, [facility] [address] [address] Mar, [facility] [address] [address] Mar, Pain in right hip M25.551 and Self-care deficit in patient living alone R46.89 [facility] [address] [facility] [id number] [address] [place] [address] Jan, Other chronic pain G89.29 ; Pain in left hip M25.552 and Slow transit constipation K59.01 [facility] [address] [place] [address] [id number] [place] [address] Jan, [facility] [address] [address] Dec, Other depression F32.89 ; Constipation, unspecified constipation type K59.00 and Insomnia, unspecified type G47.00 [place] [address] [place] [id number] [place] [address] Nov, Reactive depression F32.9 ; Chronic idio pathic constipation K59.04 ; Generalized anxiety disorder F41.1 ; Coarse tremors G25.2 ; Gastroesophageal reflux disease without esophagitis K21.9 ; Dysthymic disorder F34.1 ; Vitamin deficiency, unspecified E56.9 and Primary insomnia F51.01 [facility] [address] [place] [address] [id number] [place] [address] Nov, [facility] [address] [address] Nov, [facility] [address] [address] Nov, [facility] [address] [address] Nov, Reactive depression F32.9 ; Essential hy pertension I10 ; Generalized anxiety disorder F41.1 ; 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0 ; Dehydration E86.0 and Failure to thrive in adult R62.7 [place] [address] [address] 07 Oct, 2016 Generalized anxiety disorder F41.1 and F ailure to thrive in adult R62.7 [place] [address] [address] Oct, [place] [address] [address] Oct, [facility] [address] [facility] [id number] [address] [place] [address] Sep, Vaginal discharge N89.8 and Acute cystitis with hematuria N30.01 [facility] [address] [address] Sep, [place] [address] [address] Sep, [place] [address] [address] Sep, Dysthymic disorder F34.1 ; Acute vaginit is N76.0 ; Dysuria R30.0 and Vaginal yeast infection B37.3 [place] [address] [address] Aug, [place] [address] [address] Aug, [facility] [address] [facility] [id number] [place] [address] Aug, Foul smelling urine R82.90 ; Rapid heart rate R00.0 and Flatulence R14.3 [place] [address] [address] Aug, [place] [address] [address] Jul, Constipation, unspecified constipation t ype K59.00 ; Weak R53.1 ; Poor appetite R63.0 ; Coronary artery disease involving resighini heart without angina pectoris, unspecified vessel or lesion type I25.10 ; Fatigue, unspecified type R53.83 ; Urinary incontinence, unspecified type R32 and Insomnia, unspecified type G47.00 [place] [address] [address] Jul, [place] [address] [address] Jun, Dysuria R30.0 [place] [address] [address] Jun, [place] [address] [address] Jun, Urinary tract infection, site not specif ied N39.0 ; Acute vaginitis N76.0 and Diarrhea, unspecified type R19.7 [facility] [id number] [place] [address] May, [facility] [address] [address] April, [facility] [address] [id number] [place] [id number] April, Encounter for dental examination Z01.20 [facility] [address] [address] April, [place] [address] [address] April, Tremor R25.1 and Episodic tension-type h eadache, not intractable G44.219 [facility] [address] [address] Mar, [facility] [address] [address] Jan, Mood disorder F39 [facility] [address] [facility] [id number] [address] [place] [address] Jan, [facility] [address] [address] Jan, [facility] [address] [address] Jan, [facility] [address] [address] Jan, [facility] [address] [address] Jan, [facility] [address] [address] Jan, [facility] [address] [facility] [id number] [address] [place] [address] Dec, Acute diarrhea R19.7 [facility] [address] [address] Dec, [facility] [address] [address] Dec, [facility] [address] [address] Dec, [facility] [address] [facility] [id number] [address] [place] [address] Dec, N&V (nausea and vomiting) R1 1.2 [facility] [address] [address] Dec, Generalized anxiety disorder F41.1 [facility] [address] [address] Dec, Generalized anxiety disorder F41.1 [facility] [address] [address] Nov, Post concussion syndrome F07.81 [facility] [address] [address] Nov, Generalized anxiety disorder F41.1 [facility] [address] [address] Nov, [facility] [address] [address] Nov, Generalized anxiety disorder F41.1 [facility] [address] [id number] Oct, Dental caries K02.9 [facility] [address] [address] Oct, [facility] [address] [id number] Oct, Dental examination Z01.20 [facility] [address] [id number] Oct, 2015 Encounter for dental examination Z01.20 [facility] [address] [address] 09 Oct, 2015 CAD (coronary artery disease) I25.10 [place] [address] [address] Sep, Generalized anxiety disorder F41.1 [facility] [address] [address] Sep, [facility] [address] [address] Sep, Rash and other nonspecific skin eruption R21 and Yeast vaginitis B37.3 [facility] [address] [address] Sep, Generalized anxiety disorder F41.1 [facility] [address] [address] Aug, Insect bites 919.4 and Hemorrhoids 455.6 [facility] [address] [address] Aug, Generalized anxiety disorder 300.02 [facility] [address] [address] 08 Aug, 2015 [facility] [address] [address] Aug, [facility] [address] [address] Aug, Generalized anxiety disorder 300.02 ; No condition on [place] II V71.09 ; Heart problem 429.9 and Hypertension 401.9 [facility] [address] [address] Aug, [facility] [address] [address] Jul, [facility] [address] [address] Jul, [facility] [address] [address] Jul, [facility] [address] [address] Jul, [facility] [address] [address] Jul, Rash 782.1 [facility] [address] [address] Jul, UTI (urinary tract infection) 599.0 [facility] [address] [address] Jul, [facility] [address] [address] Jun, Dysthymia 300.4 and Anxiety 300.00 [facility] [address] [address] Jun, 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 [facility] [address] [address] May, [facility] [address] [address] May, [facility] [address] [address] May, Unspecified breast screening V76.10 [facility] [address] [id number] May, Dental examination V72.2 [facility] [address] [address] April, [facility] [address] [address] April, [facility] [address] [id number] April, Dental examination V72.2 [facility] [address] [id number] April, Dental examination V72.2 [facility] [address] [address] Mar, [facility] [address] [address] Mar, [facility] [place] [facility] [address] [facility] [id number] [place] [address] 25 Jan, 2014 [facility] [place] [facility] [address] [facility] [id number] [place] [address] 25 Jan, 2015 [facility] [place] [facility] [address] [id number] [place] [address] 18 Jan, 2014 [facility] [place] [facility] [address] [id number] [place] [address] 18 Jan, 2015 [facility] [place] [facility] [address] [facility] [id number] [place] [address] 16 Jan, 2015 [facility] [place] [facility] [address] [facility] [id number] [place] [address] 16 Jan, 2015 [facility] [place] [facility] [address] [id number] [place] [address] Jan, [facility] [place] [facility] [address] [id number] [place] [address] 13 Jan, 2015 [facility] [place] [facility] [address] [id number] [place] [address] 11 Jan, 2014 [facility] [place] [facility] [address] [id number] [place] [address] Jan, [facility] [place] [facility] [address] [id number] [place] [address] Jan, 2014 [facility] [place] [facility] [address] [id number] [place] [address] Jan, 2014 [facility] [place] [facility] [address] [id number] [place] [address] Jan, 2014 [facility] [place] [facility] [address] [facility] [id number] [place] [address] Jan, [facility] [place] [facility] [address] [id number] [place] [address] Jan, [facility] [place] [facility] [address] [id number] [place] [address] Jan, [facility] [place] [facility] [address] [id number] [place] [address] Jan, 2014 [facility] [place] [facility] [address] [facility] [id number] [facility] [address] Jan, 2014 [facility] [place] [facility] [address] [facility] [id number] [facility] [address] Jan, 2014 [facility] [place] [facility] [address] [id number] [facility] [address] Jan, 2014 [facility] [place] [facility] [address] [id number] [facility] [address] Jan, 2014 [facility] [place] [facility] [address] [facility] [id number] [facility] [address] Jan, [facility] [place] [facility] [address] [id number] [facility] [address] Dec, [facility] [place] [facility] [address] [id number] [place] [address] Dec, [facility] [place] [facility] [address] [id number] [place] [address] Dec, [facility] [place] [facility] [address] [id number] [place] [address] Dec, [facility] [place] [facility] [address] [id number] [place] [address] Nov, [facility] [place] [facility] [address] [id number] [place] [address] Nov, [facility] [place] [facility] [address] [id number] [place] [address] Nov, [facility] [place] [facility] [address] [id number] [place] [address] Nov, [facility] [place] [facility] [address] [id number] [place] [address] Nov, [facility] [place] [facility] [address] [id number] [place] [address] 05 Nov, 2014 [facility] [place] [facility] [address] [id number] [place] [address] Nov, [facility] [place] [facility] [address] [id number] [place] [address] Oct, [facility] [place] [facility] [address] [id number] [place] [address] Oct, [facility] [place] [facility] [address] [id number] [place] [address] Oct, [facility] [place] [facility] [address] [id number] [place] [address] Oct, [facility] [place] [facility] [address] [id number] [place] [address] Oct, [facility] [place] [facility] [address] [id number] [place] [address] Oct, [facility] [place] [facility] [address] [id number] [place] [address] Oct, [facility] [place] [facility] [address] [id number] [place] [address] Oct, [facility] [place] [facility] [address] [id number] [place] [address] Oct, [facility] [place] [facility] [address] [id number] [place] [address] Oct, [facility] [place] [facility] [address] [id number] [place] [address] Oct, [facility] [place] [facility] [address] [id number] [place] [address] Oct, [facility] [place] [facility] [address] [id number] [place] [address] Sep, [facility] [place] [facility] [address] [id number] [place] [address] Sep, [facility] [place] [facility] [address] [id number] [place] [address] Sep, [facility] [place] [facility] [address] [id number] [place] [address] Sep, [facility] [place] [facility] [address] [id number] [place] [address] Jul, [facility] [place] [facility] [address] [facility] [id number] [place] [address] Jul, [facility] [place] [facility] [address] [facility] [id number] [place] [address] Jul, [facility] [place] [facility] [address] [id number] [place] [address] Jul, [facility] [place] [facility] [address] [id number] [place] [address] Jun, [facility] [place] [facility] [address] [facility] [id number] [place] [address] Jun, [facility] [place] [facility] [address] [id number] [place] [address] Jun, [facility] [place] [facility] [address] [id number] [place] [address] Jun, [facility] [place] [facility] [address] [id number] [place] [address] May, [facility] [place] [facility] [address] [id number] [place] [address] May, [facility] [place] [facility] [address] [id number] [place] [address] April, [facility] [place] [facility] [address] [id number] [place] [address] April, [facility] [place] [facility] [address] [id number] [place] [address] April, [facility] [place] [facility] [address] [id number] [place] [address] April, [facility] [place] [facility] [address] [id number] [place] [address] April, [facility] [place] [facility] [address] [id number] [place] [address] April, [facility] [place] [facility] [address] [id number] [place] [address] April, [facility] [place] [facility] [address] [id number] [place] [address] April, [facility] [place] [facility] [address] [facility] [id number] [place] [address] April, [facility] [place] [facility] [address] [facility] [id number] [place] [address] Mar, [facility] [place] [facility] [address] [id number] [place] [address] Mar, [facility] [place] [facility] [address] [id number] [place] [address] Mar, [facility] [place] [facility] [address] [facility] [id number] [facility] [address] Mar, [facility] [place] [facility] [address] [id number] [place] [address] Jan, [facility] [place] [facility] [address] [id number] [place] [address] Jan, [facility] [place] [facility] [address] [id number] [place] [address] Jan, [facility] [place] [facility] [address] [id number] [place] [address] Jan, [facility] [place] [facility] [address] [id number] [place] [address] Jan, [facility] [place] [facility] [address] [id number] [place] [address] Jan, [facility] [place] [facility] [address] [id number] [place] [address] Jan, [facility] [place] [facility] [address] [facility] [id number] [place] [address] Jan, [facility] [place] [facility] [address] [id number] [place] [address] Jan, [facility] [place] [facility] [address] [id number] [place] [address] Jan, [facility] [place] [facility] [address] [id number] [place] [address] Jan, [facility] [place] [facility] [address] [id number] [place] [address] Jan, [facility] [place] [facility] [address] [id number] [place] [address] Dec, [facility] [place] [facility] [address] [id number] [place] [address] Dec, [facility] [place] [facility] [address] [id number] [place] [address] Dec, [facility] [place] [facility] [address] [id number] [place] [address] Dec, [facility] [place] [facility] [address] [id number] [place] [address] Nov, [facility] [place] [facility] [address] [id number] [place] [address] Nov, [facility] [place] [facility] [address] [id number] [place] [address] Nov, [facility] [place] [facility] [address] [id number] [place] [address] Nov, [facility] [place] [facility] [address] [id number] [place] [address] Oct, [facility] [place] [facility] [address] [id number] [place] [address] Oct, [facility] [place] [facility] [address] [id number] [place] [address] Sep, [facility] [place] [facility] [address] [id number] [place] [address] Sep, [facility] [place] [facility] [address] [id number] [place] [address] Jul, [facility] [place] [facility] [address] [id number] [place] [address] Jul, [facility] [place] [facility] [address] [id number] [place] [address] Jun, [facility] [place] [facility] [address] [id number] [place] [address] Jun, [facility] [place] [facility] [address] [facility] [id number] [facility] [address] Jun, [facility] [place] [facility] [address] [facility] [id number] [facility] [address] May, [facility] [place] [facility] [address] [id number] [facility] [address] May, [facility] [place] [facility] [address] [id number] [place] [address] May, [facility] [place] [facility] [address] [facility] [id number] [place] [address] May, [facility] [place] [facility] [address] [id number] [facility] [address] May, [facility] [place] [facility] [address] [id number] [place] [address] April, [facility] [place] [facility] [address] [id number] [facility] [address] April, [facility] [place] [facility] [address] [id number] [place] [address] April, [facility] [place] [facility] [address] [id number] [facility] [address] April, [facility] [place] [facility] [address] [id number] [place] [address] April, [facility] [place] [facility] [address] [id number] [place] [address] April, [facility] [place] [facility] [address] [facility] [id number] [facility] [address] Mar, [facility] [place] [facility] [address] [id number] [place] [address] Mar, [facility] [place] [facility] [address] [id number] [place] [address] Jan, [facility] [place] [facility] [address] [id number] [facility] [address] Jan, [facility] [place] [facility] [address] [id number] [place] [address] 05 Jan, 2013 [facility] [place] [facility] [address] [id number] [place] [address] Jan, [facility] [place] [facility] [address] [id number] [place] [address] Jan, [facility] [place] [facility] [address] [id number] [place] [address] Jan, [facility] [place] [facility] [address] [id number] [place] [address] Jan, [facility] [place] [facility] [address] [id number] [place] [address] Jan, [facility] [place] [facility] [address] [id number] [place] [address] Jan, [facility] [place] [facility] [address] [id number] [place] [address] Jan, [facility] [place] [facility] [address] [id number] [place] [address] Jan, [facility] [place] [facility] [address] [id number] [place] [address] Dec, [facility] [place] [facility] [address] [id number] [place] [address] Nov, [facility] [place] [facility] [address] [id number] [place] [address] Nov, [facility] [place] [facility] [address] [id number] [place] [address] Nov, [facility] [place] [facility] [address] [id number] [place] [address] Nov, [facility] [place] [facility] [address] [id number] [place] [address] Nov, [facility] [place] [facility] [address] [id number] [place] [address] Nov, [facility] [place] [facility] [address] [id number] [place] [address] Nov, [facility] [place] [facility] [address] [id number] [place] [address] Nov, [facility] [place] [facility] [address] [id number] [place] [address] Nov, [facility] [place] [facility] [address] [id number] [place] [address] Nov, [facility] [place] [facility] [address] [id number] [place] [address] Nov, [facility] [place] [facility] [address] [id number] [place] [address] Nov, [facility] [place] [facility] [address] [id number] [place] [address] Nov, [facility] [place] [facility] [address] [id number] [place] [address] Oct, [facility] [place] [facility] [id number] [place] [address] Oct, [facility] [place] [facility] [address] [id number] [place] [address] Oct, [facility] [place] [facility] [address] [id number] [place] [address] Sep, [facility] [place] [facility] [address] [id number] [place] [address] Sep, [facility] [place] [facility] [address] [id number] [place] [address] Sep, [facility] [place] [facility] [address] [id number] [place] [address] 10 Sep, 2012 [facility] [place] [facility] [address] [id number] [place] [address] 27 Aug, 2012 [facility] [place] [facility] [address] [id number] [place] [address] 20 Aug, 2012 [facility] [place] [facility] [address] [id number] [place] [address] 24 Jul, 2012 [facility] [place] [facility] [address] [id number] [place] [address] 27 May, 2012 [facility] [place] [facility] [address] [facility] [id number] [facility] [address] May, [facility] [place] [facility] [address] [id number] [place] [address] 14 May, 2012 [facility] [place] [facility] [address] [id number] [place] [address] April, [facility] [place] [facility] [address] [id number] [place] [address] Mar, [facility] [place] [facility] [address] [id number] [facility] [address] Mar, [facility] [place] [facility] [address] [id number] [place] [address] Mar, [facility] [place] [facility] [address] [id number] [place] [address] Jan, [facility] [place] [facility] [address] [id number] [place] [address] Jan, [facility] [place] [facility] [address] [id number] [place] [address] Jan, [facility] [place] [facility] [address] [id number] [place] [address] Dec, [facility] [place] [facility] [address] [id number] [place] [address] Dec, [facility] [place] [facility] [address] [id number] [place] [address] Dec, [facility] [place] [facility] [address] [id number] [place] [address] Dec, [facility] [place] [facility] [address] [id number] [place] [address] Nov, [facility] [place] [facility] [address] [id number] [place] [address] Nov, [facility] [place] [facility] [address] [id number] [place] [address] Nov, [facility] [place] [facility] [address] [id number] [place] [address] 03 Oct, 2011 [facility] [place] [facility] [address] [id number] [place] [address] 31 Sep, 2011 [facility] [place] [facility] [address] [id number] [place] [address] 26 Sep, 2011 [facility] [place] [facility] [address] [id number] [place] [address] 13 Sep, 2011 [facility] [place] [facility] [address] [id number] [place] [address] 15 Nov, 2010 [facility] [place] [facility] [address] [id number] [place] [address] Oct, [facility] [place] [facility] [address] [id number] [place] [address] Oct, [facility] [place] [facility] [address] [id number] [place] [address] Oct, [facility] [place] [facility] [address] [id number] [place] [address] 16 Oct, 2010 [facility] [place] [facility] [address] [id number] [place] [address] Sep, [facility] [place] [facility] [address] [id number] [place] [address] April, [facility] [place] [facility] [address] [id number] [place] [address] Nov, [facility] [place] [facility] [address] [id number] [place] [address] 24 Nov, 2009 [facility] [place] [facility] [address] [id number] [place] [address] 22 Nov, 2009 [facility] [place] [facility] [address] [id number] [place] [address] 10 Nov, 2009 [facility] [place] [facility] [address] [id number] [place] [address] Nov, [facility] [place] [facility] [address] [id number] [place] [address] Oct, [facility] [address] [facility] [id number] [place] [address] Oct, [facility] [address] [facility] [id number] [place] [address] Sep, [facility] [address] [facility] [id number] [place] [address] Jan, IMMUNIZATIONS No Known Immunizations SOCIAL HISTORY [...] History Intertrechanteric hip fx 04/27/16 [facility] Hx [facility] 3 [facility] psych treatments in past in [place] oct 2016 [facility]
--- OUTSIDE RECORDS SUMMARY | 2020-04-18 20:16 | XMS REPORT ---
Author Author Ave AGUIRRE Organization [facility] Address [address] [place] [address] Care Team Providers Care Operations Manager/Coordinator Name Role Phone WOLF AGUIRRE Unavailable PROBLEMS Type Condition ICD9-CM Code AMC28-OJ Code Onset Dates Condition S tatus SNOMED Code Problem Generalized anxiety disorder F41.1 A ctive 45192836 Problem Failure to thrive in adult R62.7 Act mishel [id number] Problem Dysthymic disorder F34.1 Active 7 6952062 Problem Iron deficiency anemia secondary to inadequate d ietary iron intake D50.8 Active 540456673 Problem Poor appetite R63.0 Active 738077 06 Problem Reactive depression F32.9 Active 07429495 Problem Coarse tremors G25.2 Active 57333 004 Problem Oropharyngeal dysphagia R13.12 Active 98158345 Problem Sundowning F05 Active 560369399 Problem 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 Active 1819 3002 Problem Constipation, unspecified constipation type K59.00 Active 41510474 Problem Vascular dementia with behavior disturbance F01.51 Active [id number] Problem Essential hypertension I10 Active 10173780 Problem Gastroesophageal reflux disease without esophagitis K21.9 Active 226014339 Problem Other chronic pain G89.29 Active 8 7077372 Problem Insomnia, unspecified type G47.00 Act mishel [id number] Problem Severe episode of recurrent major depressive disorder, without psychotic features F33.2 Active 79970997 Problem Slow transit constipation K59.01 Acti ve 18483033 Problem Mood disorder F39 Active 896532 05 Problem Irritable bowel syndrome with diarrhea K58.0 Active 742103263 Problem 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 Active 5599767 04 Problem Obsessive thinking F42.8 Active 6 9076361 Problem Dementia in other diseases c lassified elsewhere with behavioral disturbance F02.81 Active 362353583 Problem HTN (hypertension) I10 Active 3 6537462 Problem Other chronic pain G89.29 Active 8 2478097 Problem Dyspepsia K30 Active 533543661 Problem Atherosclerotic heart diseas e of [place] 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 Active 117337538144768 Problem Primary insomnia F51.01 Active 397 2004 Problem Alzheimer''s disease with late onset G30.1 Active 597102857 Problem Acute on chronic systolic congestive heart failure I50.23 Active 051225722 Problem Coronary artery disease invo [place]ving [place] coronary artery of [place] heart without angina pectoris I25.10 Active 1641 334513052 Problem Restless legs G25.81 Active 748952 08 ALLERGIES No Information ENCOUNTERS Encounter Location Date Diagnosis [place] [address] [address] 08 Jan, 2020 Nausea R11.0 [place] [address] [address] 03 Jan, 2020 Dyspepsia K30 [place] [address] [address] 28 Jan, 2020 [place] [address] [address] 28 Jan, 2020 [place] [address] [address] 25 Jan, 2020 [place] [address] [address] 23 Jan, 2020 [place] [address] [address] 21 Jan, [address] [id number] 20 Jan, 2020 Generalized anxiety disorder F41.1 [place] [address] [address] 18 Jan, [address] [id number] 13 Jan, 2020 Coronary artery disease involving [place] coronary artery of [place] heart without angina pectoris I25.10 [place] [address] [address] Jan, [facility] [address] [place] [id number] [place] [address] Dec, Atherosclerotic heart disease of [place] 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 [facility] [address] [place] [id number] [place] [address] Dec, [facility] [id number] Dec, Mood disorder F39 ; Acute on chronic systolic congestive heart failure I50.23 ; Obsessive thinking F42.8 and HTN (hypertension) I10 [address] [id number] Nov, Cough R05 [place] [address] [address] Nov, [facility] [address] [address] Oct, [facility] [address] [id number] Oct, Obsessive thinking F42.8 ; Generalized anxiety disorder F41.1 ; Primary insomnia F51.01 and Restless legs G25.81 [facility] [address] [address] Sep, [facility] [id number] Aug, Coronary artery disease involving [place] coronary artery of [place] heart without angina pectoris I25.10 [facility] [address] [address] Jul, [facility] [address] [address] Jul, [facility] [address] [address] Jul, [facility] [address] [address] Jul, [facility] [address] [address] Jul, [facility] [address] [place] [id number] Jun, Acute on chronic systolic congestive heart failure I50.23 and Atherosclerotic heart disease of [place] 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 [facility] [address] [place] [id number] [place] [address] Jun, [facility] [address] [place] [id number] [place] [address] Jun, [facility] [address] [address] Jun, [facility] [address] [address] Jun, [facility] [address] [place] [id number] [place] [address] Jun, [facility] [address] [place] [id number] [place] [address] Jun, [facility] [address] [place] [id number] [place] [address] Jun, [facility] [address] [place] [id number] May, Pressure injury of right ankle, stage 2 L89.512 and Constipation, unspecified constipation type K59.00 [facility] [address] [place] [id number] [place] [address] May, [facility] [address] [place] [id number] April, Constipation, unspecified constipation type K59.00 ; Pressure injury of right ankle, stage 1 L89.511 and Vascular dementia with behavior disturbance F01.51 [facility] [address] [place] [address] [id number] [place] [address] Mar, [facility] [address] [address] Mar, [facility] [address] [place] [id number] [place] [address] Mar, [place] [address] [address] Mar, [place] [address] [address] Jan, [facility] [address] [address] Jan, [place] [address] [address] Jan, [facility] [address] [id number] Jan, Pneumonia due to infectious organism, unspecified laterality, unspecified part of lung J18.9 ; Fall from bed, sequela W06.XXXS ; Hyponatremia E87.1 and Slow transit constipation K59.01 [place] [address] [address] Jan, [place] [address] [address] Jan, [place] [address] [address] Jan, [place] [address] [address] Dec, [facility] [address] [id number] Dec, Other depression F32.89 ; Alzheimer''s disease with late onset G30.1 and Dementia in other diseases classified elsewhere with behavioral disturbance F02.81 [place] [address] [address] Dec, [facility] [address] [id number] Dec, [facility] [address] [id number] Nov, Generalized anxiety disorder F41.1 and Obsessive thinking F42.8 [place] [address] [address] Nov, [place] [address] [place] [id number] [place] [address] Oct, [facility] [address] [place] [id number] [place] [address] Oct, [facility] [address] [place] [id number] [place] [address] Oct, [facility] [address] [place] [id number] [place] [address] Oct, [facility] [address] [place] [id number] [place] [address] Oct, [facility] [address] [place] [id number] Oct, Generalized anxiety disorder F41.1 and Obsessive thinking F42.8 [facility] [address] [place] [id number] [place] [address] Sep, [facility] [address] [place] [id number] [place] [address] Sep, [facility] [address] [place] [id number] [place] [address] Sep, [facility] [address] [place] [id number] [place] [address] Sep, [facility] [address] [place] [id number] Sep, Generalized anxiety disorder F41.1 ; Obsessive thinking F42.8 and Mood disorder F39 [facility] [address] [place] [id number] [place] [address] Sep, [facility] [address] [place] [id number] [place] [address] Sep, [facility] [address] [place] [id number] Sep, [facility] [address] [place] [id number] [place] [address] Sep, [facility] [address] [place] [id number] [place] [address] Sep, [facility] [address] [place] [id number] Sep, Obsessive thinking F42.8 [facility] [address] [address] Sep, [facility] [address] [address] Sep, [facility] [address] [address] Aug, [facility] [address] [address] Aug, [facility] [address] [address] Aug, Positive urine drug screen R82.[address] [facility] [address] [id number] Aug, [facility] [address] [address] Aug, [facility] [address] [address] Aug, [facility] [address] [address] Aug, Irritable bowel syndrome with diarrhea K 58.0 [facility] [address] [address] Aug, [facility] [address] [address] Aug, Obsessive thinking F42.8 ; Insomnia, uns pecified type G47.00 and Other chronic pain G89.29 [facility] [place] [id number] Aug, Obsessive thinking F42.8 ; Irritable bowel syndrome with diarrhea K58.0 ; Pain in right foot M79.671 ; Pain of left foot M79.672 and Gastroesophageal reflux disease without esophagitis K21.9 [facility] [address] [address] Aug, [facility] [address] [place] [id number] [place] [address] Jul, [facility] [address] [address] Jun, [facility] [address] [place] [id number] [place] [address] Jun, [facility] [address] [place] [id number] Jun, Left lower quadrant pain R10.32 and Left leg pain M79.605 [facility] [address] [address] Jun, [facility] [place] [id number] Jun, Pain in left hip M25.552 ; Pain in right hip M25.551 and Primary insomnia F51.01 [place] [address] [address] Jun, [facility] [place] [id number] May, [facility] [address] [address] May, [facility] [address] [address] May, [facility] [address] [id number] May, Mood disorder F39 [place] [address] [address] May, [facility] [address] [address] April, [facility] [address] [id number] April, Generalized anxiety disorder F41.1 ; Obsessive thinking F42.8 and Insomnia, unspecified type G47.00 [place] [address] [address] April, [place] [address] [address] April, Rash of face R21 [place] [address] [address] Mar, [place] [address] [address] Mar, [place] [address] [address] Mar, [place] [address] [address] Jan, [place] [address] [address] Jan, [facility] [address] [id number] Jan, Constipation, unspecified constipation type K59.00 and Other chronic pain G89.29 [place] [address] [address] Jan, [facility] [place] [id number] Jan, Obsessive thinking F42.8 and Coarse tremors G25.2 [place] [address] [id number] [id number] Jan, [place] [address] [id number] [facility] [place] [id number] 06 Jan, 2018 [facility] [address] [place] [id number] Jan, Generalized anxiety disorder F41.1 ; Obsessive thinking F42.8 ; Callus of foot L84 and 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 [place] [address] [address] Dec, Generalized anxiety disorder F41.1 and S evere episode of recurrent major depressive disorder, without psychotic features F33.2 [place] [address] [address] Nov, [facility] [address] [place] [id number] [place] [address] Nov, [facility] [address] [place] [id number] Nov, Oropharyngeal dysphagia R13.12 ; Generalized anxiety disorder F41.1 and 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 [facility] [address] [address] Nov, [facility] [address] [id number] [place] [id number] Nov, [facility] [address] [address] Nov, [facility] [address] [place] [id number] [place] [address] Nov, [facility] [address] [address] Oct, Constipation, unspecified constipation t ype K59.00 and Mood disorder F39 [facility] [address] [place] [id number] [place] [address] Oct, [facility] [address] [id number] [place] [id number] Sep, [facility] [address] [id number] [place] [id number] Sep, [facility] [address] [id number] [place] [id number] Sep, [facility] [address] [id number] [place] [id number] Sep, [facility] [address] [facility] [place] [id number] Sep, Generalized abdominal pain R10.84 [facility] [address] [place] [id number] [place] [address] Sep, [facility] [address] [id number] [place] [id number] Sep, Generalized anxiety disorder F41.1 and P rimary insomnia F51.01 [facility] [address] [id number] [place] [id number] Aug, [facility] [address] [id number] [facility] [place] [id number] Aug, Generalized anxiety disorder F41.1 [facility] [address] [place] [id number] [place] [address] Jul, [facility] [address] [id number] Jul, Obsessive thinking F42.8 [place] [address] [address] Jul, Generalized anxiety disorder F41.1 and I rritable bowel syndrome with diarrhea K58.0 [place] [address] [id number] [facility] [place] [id number] Jul, Generalized anxiety disorder F41.1 [place] [address] [id number] [place] [id number] Jun, Generalized anxiety disorder F41.1 [place] [address] [address] May, [facility] [address] [id number] May, Generalized anxiety disorder F41.1 ; Irritable bowel syndrome with diarrhea K58.0 and Coarse tremors G25.2 [facility] [address] [address] April, [facility] [address] [address] April, [facility] [address] [address] April, [facility] [address] [address] Mar, [facility] [address] [place] [id number] Mar, Severe episode of recurrent major depressive disorder, without psychotic features F33.2 and Pain in left hip M25.552 [facility] [address] [place] [id number] [place] [address] Mar, [facility] [address] [place] [id number] [place] [address] Mar, [facility] [address] [address] Mar, [facility] [address] [address] Mar, Pain in right hip M25.551 and Self-care deficit in patient living alone R46.89 [facility] [address] [facility] [id number] [address] [place] [address] Jan, Other chronic pain G89.29 ; Pain in left hip M25.552 and Slow transit constipation K59.01 [facility] [address] [id number] [place] [address] Jan, [facility] [address] [address] Dec, Other depression F32.89 ; Constipation, unspecified constipation type K59.00 and Insomnia, unspecified type G47.00 [place] [address] [place] [id number] [place] [address] Nov, Reactive depression F32.9 ; Chronic idio pathic constipation K59.04 ; Generalized anxiety disorder F41.1 ; Coarse tremors G25.2 ; Gastroesophageal reflux disease without esophagitis K21.9 ; Dysthymic disorder F34.1 ; Vitamin deficiency, unspecified E56.9 and Primary insomnia F51.01 [facility] [address] [place] [id number] [place] [address] Nov, [facility] [address] [address] Nov, [facility] [address] [address] Nov, [facility] [address] [address] Nov, Reactive depression F32.9 ; Essential hy pertension I10 ; Generalized anxiety disorder F41.1 ; Atherosclerotic heart disease of [place] 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 ; Pain in right hip M25.551 ; Other chronic pain G89.29 ; Chronic idiopathic constipation K59.04 ; Primary insomnia F51.01 ; Coarse tremors G25.2 ; Gastroesophageal reflux disease without esophagitis K21.9 ; Iron deficiency anemia secondary to inadequate dietary iron intake D50.8 and Vitamin deficiency, unspecified E56.9 [place] [address] [address] Oct, [place] [address] [address] Oct, [place] [address] [address] Oct, [place] [address] [address] Oct, Generalized anxiety disorder F41.1 ; Poo r appetite R63.0 ; Dehydration E86.0 and Failure to thrive in adult R62.7 [place] [address] [address] 07 Oct, 2016 Generalized anxiety disorder F41.1 and F ailure to thrive in adult R62.7 [place] [address] [address] Oct, [place] [address] [address] Oct, [facility] [address] [facility] [id number] [address] [place] [address] Sep, Vaginal discharge N89.8 and Acute cystitis with hematuria N30.01 [facility] [address] [address] Sep, [place] [address] [address] Sep, [place] [address] [address] Sep, Dysthymic disorder F34.1 ; Acute vaginit is N76.0 ; Dysuria R30.0 and Vaginal yeast infection B37.3 [place] [address] [address] Aug, [place] [address] [address] Aug, [facility] [address] [facility] [id number] [place] [address] Aug, Foul smelling urine R82.90 ; Rapid heart rate R00.0 and Flatulence R14.3 [place] [address] [address] Aug, [place] [address] [address] Jul, Constipation, unspecified constipation t ype K59.00 ; Weak R53.1 ; Poor appetite R63.0 ; Coronary artery disease involving [place] heart without angina pectoris, unspecified vessel or lesion type I25.10 ; Fatigue, unspecified type R53.83 ; Urinary incontinence, unspecified type R32 and Insomnia, unspecified type G47.00 [place] [address] [address] Jul, [place] [address] [address] Jun, Dysuria R30.0 [place] [address] [address] Jun, [place] [address] [address] Jun, Urinary tract infection, site not specif ied N39.0 ; Acute vaginitis N76.0 and Diarrhea, unspecified type R19.7 [facility] [address] [place] [address] [id number] [place] [address] May, [facility] [address] [address] April, [facility] [address] [facility] [place] [id number] April, Encounter for dental examination Z01.20 [facility] [address] [address] April, [place] [address] [address] April, Tremor R25.1 and Episodic tension-type h eadache, not intractable G44.219 [facility] [address] [address] Mar, [facility] [address] [address] Jan, Mood disorder F39 [facility] [address] [facility] [id number] [address] [place] [address] Jan, [facility] [address] [address] Jan, [facility] [address] [address] Jan, [facility] [address] [address] Jan, [facility] [address] [address] Jan, [facility] [address] [address] Jan, [facility] [address] [facility] [id number] [address] [place] [address] Dec, Acute diarrhea R19.7 [facility] [address] [address] Dec, [facility] [address] [address] Dec, [facility] [address] [address] Dec, [facility] [address] [facility] [id number] [address] [place] [address] Dec, N&V (nausea and vomiting) R1 1.2 [facility] [address] [address] Dec, Generalized anxiety disorder F41.1 [facility] [address] [address] Dec, Generalized anxiety disorder F41.1 [facility] [address] [address] Nov, Post concussion syndrome F07.81 [facility] [address] [address] Nov, Generalized anxiety disorder F41.1 [facility] [address] [address] Nov, [facility] [address] [address] Nov, Generalized anxiety disorder F41.1 [facility] [address] [id number] Oct, Dental caries K02.9 [facility] [address] [address] Oct, [facility] [address] [id number] Oct, Dental examination Z01.20 [facility] [address] [id number] Oct, 2015 Encounter for dental examination Z01.20 [facility] [address] [address] 09 Oct, 2015 CAD (coronary artery disease) I25.10 [place] [address] [address] Sep, Generalized anxiety disorder F41.1 [facility] [address] [address] Sep, [facility] [address] [address] Sep, Rash and other nonspecific skin eruption R21 and Yeast vaginitis B37.3 [facility] [address] [address] Sep, Generalized anxiety disorder F41.1 [facility] [address] [address] Aug, Insect bites 919.4 and Hemorrhoids 455.6 [facility] [address] [address] Aug, Generalized anxiety disorder 300.02 [facility] [address] [address] 08 Aug, 2015 [facility] [address] [address] Aug, [facility] [address] [address] Aug, Generalized anxiety disorder 300.02 ; No condition on [place] II V71.09 ; Heart problem 429.9 and Hypertension 401.9 [facility] [address] [address] Aug, [facility] [address] [address] Jul, [facility] [address] [address] Jul, [facility] [address] [address] Jul, [facility] [address] [address] Jul, [facility] [address] [address] Jul, Rash 782.1 [facility] [address] [address] Jul, UTI (urinary tract infection) 599.0 [facility] [address] [address] Jul, [facility] [address] [address] Jun, Dysthymia 300.4 and Anxiety 300.00 [facility] [address] [address] Jun, 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 [facility] [address] [address] May, [facility] [address] [address] May, [facility] [address] [address] May, Unspecified breast screening V76.10 [facility] [address] [id number] May, Dental examination V72.2 [facility] [address] [address] April, [facility] [address] [address] April, [facility] [address] [id number] April, Dental examination V72.2 [facility] [address] [id number] April, Dental examination V72.2 [facility] [address] [address] Mar, [facility] [address] [address] Mar, [facility] [place] [facility] [address] [facility] [id number] [place] [address] 25 Jan, 2014 [facility] [place] [facility] [address] [facility] [id number] [place] [address] 25 Jan, 2015 [facility] [place] [facility] [address] [id number] [place] [address] 18 Jan, 2014 [facility] [place] [facility] [address] [id number] [place] [address] 18 Jan, 2015 [facility] [place] [facility] [address] [facility] [id number] [place] [address] 16 Jan, 2015 [facility] [place] [facility] [address] [facility] [id number] [place] [address] 16 Jan, 2015 [facility] [place] [facility] [address] [id number] [place] [address] Jan, [facility] [place] [facility] [address] [id number] [place] [address] 13 Jan, 2015 [facility] [place] [facility] [address] [id number] [place] [address] 11 Jan, 2014 [facility] [place] [facility] [address] [id number] [place] [address] Jan, [facility] [place] [facility] [address] [id number] [place] [address] Jan, 2014 [facility] [place] [facility] [address] [id number] [place] [address] Jan, 2014 [facility] [place] [facility] [address] [id number] [place] [address] Jan, 2014 [facility] [place] [facility] [address] [facility] [id number] [place] [address] Jan, [facility] [place] [facility] [address] [id number] [place] [address] Jan, [facility] [place] [facility] [address] [id number] [place] [address] Jan, [facility] [place] [facility] [address] [id number] [place] [address] Jan, 2014 [facility] [place] [facility] [address] [facility] [id number] [facility] [place] [address] Jan, 2014 [facility] [place] [facility] [address] [facility] [id number] [facility] [place] [address] Jan, 2014 [facility] [place] [facility] [address] [id number] [facility] [place] [address] Jan, 2014 [facility] [place] [facility] [address] [id number] [facility] [place] [address] Jan, 2014 [facility] [place] [facility] [address] [facility] [id number] [facility] [place] [address] Jan, [facility] [place] [facility] [address] [id number] [facility] [place] [address] Dec, [facility] [place] [facility] [address] [id number] [place] [address] Dec, [facility] [place] [facility] [address] [id number] [place] [address] Dec, [facility] [place] [facility] [address] [id number] [place] [address] Dec, [facility] [place] [facility] [address] [id number] [place] [address] Nov, [facility] [place] [facility] [address] [id number] [place] [address] Nov, [facility] [place] [facility] [address] [id number] [place] [address] Nov, [facility] [place] [facility] [address] [id number] [place] [address] Nov, [facility] [place] [facility] [address] [id number] [place] [address] Nov, [facility] [place] [facility] [address] [id number] [place] [address] 05 Nov, 2014 [facility] [place] [facility] [address] [id number] [place] [address] Nov, [facility] [place] [facility] [address] [id number] [place] [address] Oct, [facility] [place] [facility] [address] [id number] [place] [address] Oct, [facility] [place] [facility] [address] [id number] [place] [address] Oct, [facility] [place] [facility] [address] [id number] [place] [address] Oct, [facility] [place] [facility] [address] [id number] [place] [address] Oct, [facility] [place] [facility] [address] [id number] [place] [address] Oct, [facility] [place] [facility] [address] [id number] [place] [address] Oct, [facility] [place] [facility] [address] [id number] [place] [address] Oct, [facility] [place] [facility] [address] [id number] [place] [address] Oct, [facility] [place] [facility] [address] [id number] [place] [address] Oct, [facility] [place] [facility] [address] [id number] [place] [address] Oct, [facility] [place] [facility] [address] [id number] [place] [address] Oct, [facility] [place] [facility] [address] [id number] [place] [address] Sep, [facility] [place] [facility] [address] [id number] [place] [address] Sep, [facility] [place] [facility] [address] [id number] [place] [address] Sep, [facility] [place] [facility] [address] [id number] [place] [address] Sep, [facility] [place] [facility] [address] [id number] [place] [address] Jul, [facility] [place] [facility] [address] [facility] [id number] [place] [address] Jul, [facility] [place] [facility] [address] [facility] [id number] [place] [address] Jul, [facility] [place] [facility] [address] [id number] [place] [address] Jul, [facility] [place] [facility] [address] [id number] [place] [address] Jun, [facility] [place] [facility] [address] [facility] [id number] [place] [address] Jun, [facility] [place] [facility] [address] [id number] [place] [address] Jun, [facility] [place] [facility] [address] [id number] [place] [address] Jun, [facility] [place] [facility] [address] [id number] [place] [address] May, [facility] [place] [facility] [address] [id number] [place] [address] May, [facility] [place] [facility] [address] [id number] [place] [address] April, [facility] [place] [facility] [address] [id number] [place] [address] April, [facility] [place] [facility] [address] [id number] [place] [address] April, [facility] [place] [facility] [address] [id number] [place] [address] April, [facility] [place] [facility] [address] [id number] [place] [address] April, [facility] [place] [facility] [address] [id number] [place] [address] April, [facility] [place] [facility] [address] [id number] [place] [address] April, [facility] [place] [facility] [address] [id number] [place] [address] April, [facility] [place] [facility] [address] [facility] [id number] [place] [address] April, [facility] [place] [facility] [address] [facility] [id number] [place] [address] Mar, [facility] [place] [facility] [address] [id number] [place] [address] Mar, [facility] [place] [facility] [address] [id number] [place] [address] Mar, [facility] [place] [facility] [address] [facility] [id number] [facility] [place] [address] Mar, [facility] [place] [facility] [address] [id number] [place] [address] Jan, [facility] [place] [facility] [address] [id number] [place] [address] Jan, [facility] [place] [facility] [address] [id number] [place] [address] Jan, [facility] [place] [facility] [address] [id number] [place] [address] Jan, [facility] [place] [facility] [address] [id number] [place] [address] Jan, [facility] [place] [facility] [address] [id number] [place] [address] Jan, [facility] [place] [facility] [address] [id number] [place] [address] Jan, [facility] [place] [facility] [address] [facility] [id number] [place] [address] Jan, [facility] [place] [facility] [address] [id number] [place] [address] Jan, [facility] [place] [facility] [address] [id number] [place] [address] Jan, [facility] [place] [facility] [address] [id number] [place] [address] Jan, [facility] [place] [facility] [address] [id number] [place] [address] Jan, [facility] [place] [facility] [address] [id number] [place] [address] Dec, [facility] [place] [facility] [address] [id number] [place] [address] Dec, [facility] [place] [facility] [address] [id number] [place] [address] Dec, [facility] [place] [facility] [address] [id number] [place] [address] Dec, [facility] [place] [facility] [address] [id number] [place] [address] Nov, [facility] [place] [facility] [address] [id number] [place] [address] Nov, [facility] [place] [facility] [address] [id number] [place] [address] Nov, [facility] [place] [facility] [address] [id number] [place] [address] Nov, [facility] [place] [facility] [address] [id number] [place] [address] Oct, [facility] [place] [facility] [address] [id number] [place] [address] Oct, [facility] [place] [facility] [address] [id number] [place] [address] Sep, [facility] [place] [facility] [address] [id number] [place] [address] Sep, [facility] [place] [facility] [address] [id number] [place] [address] Jul, [facility] [place] [facility] [address] [id number] [place] [address] Jul, [facility] [place] [facility] [address] [id number] [place] [address] Jun, [facility] [place] [facility] [address] [id number] [place] [address] Jun, [facility] [place] [facility] [address] [facility] [id number] [facility] [place] [address] Jun, [facility] [place] [facility] [address] [facility] [id number] [facility] [place] [address] May, [facility] [place] [facility] [address] [id number] [facility] [place] [address] May, [facility] [place] [facility] [address] [id number] [place] [address] May, [facility] [place] [facility] [address] [facility] [id number] [place] [address] May, [facility] [place] [facility] [address] [id number] [facility] [place] [address] May, [facility] [place] [facility] [address] [id number] [place] [address] April, [facility] [place] [facility] [address] [id number] [facility] [place] [address] April, [facility] [place] [facility] [address] [id number] [place] [address] April, [facility] [place] [facility] [address] [id number] [facility] [place] [address] April, [facility] [place] [facility] [address] [id number] [place] [address] April, [facility] [place] [facility] [address] [id number] [place] [address] April, [facility] [place] [facility] [address] [facility] [id number] [facility] [place] [address] Mar, [facility] [place] [facility] [address] [id number] [place] [address] Mar, [facility] [place] [facility] [address] [id number] [place] [address] Jan, [facility] [place] [facility] [address] [id number] [facility] [place] [address] Jan, [facility] [place] [facility] [address] [id number] [place] [address] 05 Jan, 2013 [facility] [place] [facility] [address] [id number] [place] [address] Jan, [facility] [place] [facility] [address] [id number] [place] [address] Jan, [facility] [place] [facility] [address] [id number] [place] [address] Jan, [facility] [place] [facility] [address] [id number] [place] [address] Jan, [facility] [place] [facility] [address] [id number] [place] [address] Jan, [facility] [place] [facility] [address] [id number] [place] [address] Jan, [facility] [place] [facility] [address] [id number] [place] [address] Jan, [facility] [place] [facility] [address] [id number] [place] [address] Jan, [facility] [place] [facility] [address] [id number] [place] [address] Dec, [facility] [place] [facility] [address] [id number] [place] [address] Nov, [facility] [place] [facility] [address] [id number] [place] [address] Nov, [facility] [place] [facility] [address] [id number] [place] [address] Nov, [facility] [place] [facility] [address] [id number] [place] [address] Nov, [facility] [place] [facility] [address] [id number] [place] [address] Nov, [facility] [place] [facility] [address] [id number] [place] [address] Nov, [facility] [place] [facility] [address] [id number] [place] [address] Nov, [facility] [place] [facility] [address] [id number] [place] [address] Nov, [facility] [place] [facility] [address] [id number] [place] [address] Nov, [facility] [place] [facility] [address] [id number] [place] [address] Nov, [facility] [place] [facility] [address] [id number] [place] [address] Nov, [facility] [place] [facility] [address] [id number] [place] [address] Nov, [facility] [place] [facility] [address] [id number] [place] [address] Nov, [facility] [place] [facility] [address] [id number] [place] [address] Oct, [facility] [place] [facility] [id number] [place] [address] Oct, [facility] [place] [facility] [address] [id number] [place] [address] Oct, [facility] [place] [facility] [address] [id number] [place] [address] Sep, [facility] [place] [facility] [address] [id number] [place] [address] Sep, [facility] [place] [facility] [address] [id number] [place] [address] Sep, [facility] [place] [facility] [address] [id number] [place] [address] 10 Sep, 2012 [facility] [place] [facility] [address] [id number] [place] [address] 27 Aug, 2012 [facility] [place] [facility] [address] [id number] [place] [address] 20 Aug, 2012 [facility] [place] [facility] [address] [id number] [place] [address] 24 Jul, 2012 [facility] [place] [facility] [address] [id number] [place] [address] 27 May, 2012 [facility] [place] [facility] [address] [facility] [id number] [facility] [place] [address] May, [facility] [place] [facility] [address] [id number] [place] [address] 14 May, 2012 [facility] [place] [facility] [address] [id number] [place] [address] April, [facility] [place] [facility] [address] [id number] [place] [address] Mar, [facility] [place] [facility] [address] [id number] [facility] [place] [address] Mar, [facility] [place] [facility] [address] [id number] [place] [address] Mar, [facility] [place] [facility] [address] [id number] [place] [address] Jan, [facility] [place] [facility] [address] [id number] [place] [address] Jan, [facility] [place] [facility] [address] [id number] [place] [address] Jan, [facility] [place] [facility] [address] [id number] [place] [address] Dec, [facility] [place] [facility] [address] [id number] [place] [address] Dec, [facility] [place] [facility] [address] [id number] [place] [address] Dec, [facility] [place] [facility] [address] [id number] [place] [address] Dec, [facility] [place] [facility] [address] [id number] [place] [address] Nov, [facility] [place] [facility] [address] [id number] [place] [address] Nov, [facility] [place] [facility] [address] [id number] [place] [address] Nov, [facility] [place] [facility] [address] [id number] [place] [address] 03 Oct, 2011 [facility] [place] [facility] [address] [id number] [place] [address] 31 Sep, 2011 [facility] [place] [facility] [address] [id number] [place] [address] 26 Sep, 2011 [facility] [place] [facility] [address] [id number] [place] [address] 13 Sep, 2011 [facility] [place] [facility] [address] [id number] [place] [address] 15 Nov, 2010 [facility] [place] [facility] [address] [id number] [place] [address] Oct, [facility] [place] [facility] [address] [id number] [place] [address] Oct, [facility] [place] [facility] [address] [id number] [place] [address] Oct, [facility] [place] [facility] [address] [id number] [place] [address] 16 Oct, 2010 [facility] [place] [facility] [address] [id number] [place] [address] Sep, [facility] [place] [facility] [address] [id number] [place] [address] April, [facility] [place] [facility] [address] [id number] [place] [address] Nov, [facility] [place] [facility] [address] [id number] [place] [address] 24 Nov, 2009 [facility] [place] [facility] [address] [id number] [place] [address] 22 Nov, 2009 [facility] [place] [facility] [address] [id number] [place] [address] 10 Nov, 2009 [facility] [place] [facility] [address] [id number] [place] [address] Nov, [facility] [place] [facility] [address] [id number] [place] [address] Oct, [facility] [address] [facility] [id number] [place] [address] Oct, [facility] [address] [facility] [id number] [place] [address] Sep, [facility] [address] [facility] [id number] [place] [address] Jan, IMMUNIZATIONS No Known Immunizations SOCIAL HISTORY [...] History Intertrechanteric hip fx 04/27/16 [facility]x [facility] 3 [facility] psych treatments in past in [place] oct 2016 [facility]
--- OUTSIDE RECORDS SUMMARY | 2020-04-18 20:17 | XMS REPORT ---
Author Author Ave AGUIRRE Organization [facility] Address [address] [place] [address] Care Team Providers Care Health Communications Specialist Name Role Phone WOLF AGUIRRE Unavailable PROBLEMS Type Condition ICD9-CM Code XGL87-VN Code Onset Dates Condition S tatus SNOMED Code Problem Generalized anxiety disorder F41.1 A ctive 54082097 Problem Failure to thrive in adult R62.7 Act mishel [id number] Problem Dysthymic disorder F34.1 Active 7 8417204 Problem Iron deficiency anemia secondary to inadequate d ietary iron intake D50.8 Active 561468965 Problem Poor appetite R63.0 Active 804002 06 Problem Reactive depression F32.9 Active 84182581 Problem Coarse tremors G25.2 Active 97215 004 Problem Oropharyngeal dysphagia R13.12 Active 32748951 Problem Sundowning F05 Active 482652922 Problem 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 Active 1819 3002 Problem Constipation, unspecified constipation type K59.00 Active 87590633 Problem Vascular dementia with behavior disturbance F01.51 Active [id number] Problem Essential hypertension I10 Active 09719517 Problem Gastroesophageal reflux disease without esophagitis K21.9 Active 803455197 Problem Other chronic pain G89.29 Active 8 8835936 Problem Insomnia, unspecified type G47.00 Act mishel 706995952 Problem Severe episode of recurrent major depressive disorder, without psychotic features F33.2 Active 12699228 Problem Slow transit constipation K59.01 Acti ve 14104842 Problem Mood disorder F39 Active 694804 05 Problem Irritable bowel syndrome with diarrhea K58.0 Active 624183837 Problem 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 Active 2475085 04 Problem Obsessive thinking F42.8 Active 6 0548757 Problem Dementia in other diseases c lassified elsewhere with behavioral disturbance F02.81 Active 666307981 Problem HTN (hypertension) I10 Active 3 5052124 Problem Other chronic pain G89.29 Active 8 8183094 Problem Dyspepsia K30 Active 022363777 Problem Atherosclerotic heart diseas e of [place] 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 Active 231745269175593 Problem Primary insomnia F51.01 Active 397 2004 Problem Alzheimer''s disease with late onset G30.1 Active 894457314 Problem Acute on chronic systolic congestive heart failure I50.23 Active 563510810 Problem Coronary artery disease invo lving [place] coronary artery of [place] heart without angina pectoris I25.10 Active 1641 560344104 Problem Restless legs G25.81 Active 472349 08 ALLERGIES No Information ENCOUNTERS Encounter Location Date Diagnosis [facility] [address] [address] Jan, Dyspepsia K30 [facility] [address] [address] 28 Jan, 2020 [facility] [address] [address] Jan, [facility] [address] [address] Jan, [facility] [address] [address] Jan, [facility] [address] [address] Jan, [facility] [address] [place] [id number] Jan, Generalized anxiety disorder F41.1 [facility] [address] [address] 18 Jan, 2020 [facility] [address] [place] [id number] 13 Jan, 2020 Coronary artery disease involving [place] coronary artery of [place] heart without angina pectoris I25.10 [facility] [address] [address] 10 Jan, 2020 [facility] [address] [address] Dec, Atherosclerotic heart disease of [place] 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 [facility] [address] [address] Dec, [facility] [address] [id number] Dec, Mood disorder F39 ; Acute on chronic systolic congestive heart failure I50.23 ; Obsessive thinking F42.8 and HTN (hypertension) I10 [facility] [address] [id number] Nov, Cough R05 [facility] [address] [address] Nov, [facility] [address] [address] Oct, [facility] [address] [id number] Oct, Obsessive thinking F42.8 ; Generalized anxiety disorder F41.1 ; Primary insomnia F51.01 and Restless legs G25.81 [facility] [address] [address] Sep, [facility] [id number] Aug, Coronary artery disease involving [place] coronary artery of [place] heart without angina pectoris I25.10 [facility] [address] [address] Jul, [facility] [address] [address] Jul, [facility] [address] [address] Jul, [facility] [address] [address] Jul, [facility] [address] [address] Jul, [facility] [address] [id number] Jun, Acute on chronic systolic congestive heart failure I50.23 and Atherosclerotic heart disease of [place] 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 [facility] [id number] [place] [address] Jun, [facility] [id number] [place] [address] Jun, [facility] [id number] [place] [address] Jun, [facility] [address] [address] Jun, [facility] [address] [address] Jun, [facility] [address] [address] Jun, [facility] [address] [address] Jun, [facility] [address] [id number] May, Pressure injury of right ankle, stage 2 L89.512 and Constipation, unspecified constipation type K59.00 [facility] [id number] [place] [address] May, [facility] [address] [id number] April, Constipation, unspecified constipation type K59.00 ; Pressure injury of right ankle, stage 1 L89.511 and Vascular dementia with behavior disturbance F01.51 [facility] [address] [place] [address] Mar, [facility] [address] [place] [address] Mar, [facility] [address] [address] Mar, [facility] [address] [address] Mar, [facility] [id number] [place] [address] Jan, [facility] [id number] [place] [address] Jan, [facility] [id number] [place] [address] Jan, [facility] [address] [id number] Jan, Pneumonia due to infectious organism, unspecified laterality, unspecified part of lung J18.9 ; Fall from bed, sequela W06.XXXS ; Hyponatremia E87.1 and Slow transit constipation K59.01 [place] [address] [address] Jan, [place] [id number] [place] [address] Jan, [place] [address] [address] Jan, [place] [address] [place] [address] Dec, [facility] [address] [id number] Dec, Other depression F32.89 ; Alzheimer''s disease with late onset G30.1 and Dementia in other diseases classified elsewhere with behavioral disturbance F02.81 [place] [id number] [place] [address] Dec, [facility] [address] [id number] Dec, [facility] [address] [id number] Nov, Generalized anxiety disorder F41.1 and Obsessive thinking F42.8 [place] [id number] [place] [address] Nov, [place] [address] [address] Oct, [place] [address] [place] [address] Oct, [facility] [address] [address] Oct, [facility] [address] [address] Oct, [facility] [id number] [place] [address] Oct, [facility] [address] [place] [id number] Oct, Generalized anxiety disorder F41.1 and Obsessive thinking F42.8 [facility] [address] [address] Sep, [facility] [address] [address] Sep, [facility] [address] [address] Sep, [facility] [id number] [place] [address] Sep, [facility] [address] [place] [id number] Sep, Generalized anxiety disorder F41.1 ; Obsessive thinking F42.8 and Mood disorder F39 [facility] [address] [address] Sep, [facility] [address] [address] Sep, [facility] [address] [place] [id number] Sep, [facility] [address] [address] Sep, [facility] [address] [address] Sep, [facility] [address] [place] [id number] Sep, Obsessive thinking F42.8 [facility] [address] [place] [address] Sep, [facility] [address] [address] Sep, [facility] [address] [address] Aug, [facility] [address] [address] Aug, [facility] [address] [address] Aug, Positive urine drug screen R82.5 [facility] [address] [place] [id number] Aug, [facility] [address] [address] Aug, [facility] [address] [address] Aug, [facility] [address] [address] Aug, Irritable bowel syndrome with diarrhea K 58.0 [facility] [address] [address] Aug, [facility] [address] [address] Aug, Obsessive thinking F42.8 ; Insomnia, uns pecified type G47.00 and Other chronic pain G89.29 [facility] [address] [place] [id number] Aug, Obsessive thinking F42.8 ; Irritable bowel syndrome with diarrhea K58.0 ; Pain in right foot M79.671 ; Pain of left foot M79.672 and Gastroesophageal reflux disease without esophagitis K21.9 [facility] [address] [address] Aug, [facility] [address] [address] Jul, [facility] [address] [address] Jun, [facility] [address] [address] Jun, [facility] [address] [place] [id number] Jun, Left lower quadrant pain R10.32 and Left leg pain M79.605 [place] [address] [address] Jun, [facility] [address] [place] [id number] Jun, Pain in left hip M25.552 ; Pain in right hip M25.551 and Primary insomnia F51.01 [place] [address] [address] Jun, [facility] [address] [id number] May, [place] [address] [address] May, [place] [address] [address] May, [facility] [address] [id number] May, Mood disorder F39 [place] [address] [address] May, [place] [address] [address] April, [facility] [address] [id number] April, Generalized anxiety disorder F41.1 ; Obsessive thinking F42.8 and Insomnia, unspecified type G47.00 [facility] [address] [place] [address] April, [facility] [address] [address] 03 May, 2018 Rash of face R21 [place] [address] [address] Mar, [place] [address] [address] Mar, [place] [address] [address] Mar, [place] [address] [address] Jan, [place] [address] [address] Jan, [facility] [address] [place] [id number] Jan, Constipation, unspecified constipation type K59.00 and Other chronic pain G89.29 [place] [address] [address] Jan, [facility] [address] [place] [id number] Jan, Obsessive thinking F42.8 and Coarse tremors G25.2 [place] [address] [id number] [facility] [place] [id number] Jan, [place] [address] [id number] [facility] [place] [id number] Jan, [facility] [address] [place] [id number] Jan, Generalized anxiety disorder F41.1 ; Obsessive thinking F42.8 ; Callus of foot L84 and 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 [place] [address] [address] Dec, Generalized anxiety disorder F41.1 and S evere episode of recurrent major depressive disorder, without psychotic features F33.2 [place] [address] [address] Nov, [place] [address] [address] Nov, [facility] [address] [place] [id number] Nov, Oropharyngeal dysphagia R13.12 ; Generalized anxiety disorder F41.1 and 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 [facility] [address] [address] Nov, [facility] [address] [id number] [place] [id number] Nov, [facility] [address] [address] Nov, [facility] [address] [address] Nov, [facility] [address] [address] Oct, Constipation, unspecified constipation t ype K59.00 and Mood disorder F39 [facility] [address] [place] [address] Oct, [facility] [address] [id number] [place] [id number] Sep, [facility] [address] [id number] [place] [id number] Sep, [facility] [address] [id number] [place] [id number] Sep, [facility] [address] [id number] [place] [id number] Sep, [facility] [address] [place] [id number] Sep, Generalized abdominal pain R10.84 [facility] [address] [address] Sep, [facility] [address] [id number] [place] [id number] Sep, Generalized anxiety disorder F41.1 and P rimary insomnia F51.01 [facility] [address] [id number] [place] [id number] Aug, [place] [address] [id number] [facility] [place] [id number] Aug, Generalized anxiety disorder F41.1 [place] [address] [facility] [place] [address] Jul, [facility] [address] [id number] Jul, Obsessive thinking F42.8 [place] [address] [id number] [place] [address] Jul, Generalized anxiety disorder F41.1 and I rritable bowel syndrome with diarrhea K58.0 [place] [address] [id number] [facility] [place] [id number] Jul, Generalized anxiety disorder F41.1 [place] [address] [place] [id number] [place] [id number] Jun, Generalized anxiety disorder F41.1 [place] [address] [address] May, [facility] [address] [id number] May, Generalized anxiety disorder F41.1 ; Irritable bowel syndrome with diarrhea K58.0 and Coarse tremors G25.2 [place] [address] [address] April, [place] [address] [address] April, [place] [address] [address] April, [place] [address] [address] Mar, [facility] [address] [id number] Mar, Severe episode of recurrent major depressive disorder, without psychotic features F33.2 and Pain in left hip M25.552 [facility] [id number] [place] [address] Mar, [facility] [address] [address] Mar, [facility] [address] [address] Mar, [facility] [address] [address] Mar, Pain in right hip M25.551 and Self-care deficit in patient living alone R46.89 [facility] [address] [facility] [id number] [address] [place] [address] Jan, Other chronic pain G89.29 ; Pain in left hip M25.552 and Slow transit constipation K59.01 [place] [address] [address] Jan, [place] [address] [address] Dec, Other depression F32.89 ; Constipation, unspecified constipation type K59.00 and Insomnia, unspecified type G47.00 [place] [address] [address] Nov, Reactive depression F32.9 ; Chronic idio pathic constipation K59.04 ; Generalized anxiety disorder F41.1 ; Coarse tremors G25.2 ; Gastroesophageal reflux disease without esophagitis K21.9 ; Dysthymic disorder F34.1 ; Vitamin deficiency, unspecified E56.9 and Primary insomnia F51.01 [place] [address] [address] Nov, [place] [address] [address] Nov, [place] [address] [address] Nov, [place] [address] [address] Nov, Reactive depression F32.9 ; Essential hy pertension I10 ; Generalized anxiety disorder F41.1 ; Atherosclerotic heart disease of [place] 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 ; Pain in right hip M25.551 ; Other chronic pain G89.29 ; Chronic idiopathic constipation K59.04 ; Primary insomnia F51.01 ; Coarse tremors G25.2 ; Gastroesophageal reflux disease without esophagitis K21.9 ; Iron deficiency anemia secondary to inadequate dietary iron intake D50.8 and Vitamin deficiency, unspecified E56.9 [place] [address] [address] 29 Oct, 2016 [place] [address] [address] Oct, [place] [address] [address] Oct, [address] [address] 16 Oct, 2016 Generalized anxiety disorder F41.1 ; Poo r appetite R63.0 ; Dehydration E86.0 and Failure to thrive in adult R62.7 [place] [address] [address] 07 Oct, 2016 Generalized anxiety disorder F41.1 and F ailure to thrive in adult R62.7 [place] [address] [address] Oct, [place] [address] [address] Oct, [facility] [address] [facility] [id number] [address] [place] [address] Sep, Vaginal discharge N89.8 and Acute cystitis with hematuria N30.01 [facility] [address] [address] Sep, [facility] [address] [address] Sep, [place] [address] [address] Sep, Dysthymic disorder F34.1 ; Acute vaginit is N76.0 ; Dysuria R30.0 and Vaginal yeast infection B37.3 [place] [address] [address] Aug, [place] [address] [address] Aug, [facility] [address] [facility] [id number] [address] [address] Aug, Foul smelling urine R82.90 ; Rapid heart rate R00.0 and Flatulence R14.3 [place] [address] [address] Aug, [place] [address] [address] Jul, Constipation, unspecified constipation t ype K59.00 ; Weak R53.1 ; Poor appetite R63.0 ; Coronary artery disease involving [place] heart without angina pectoris, unspecified vessel or lesion type I25.10 ; Fatigue, unspecified type R53.83 ; Urinary incontinence, unspecified type R32 and Insomnia, unspecified type G47.00 [place] [address] [address] Jul, [place] [address] [address] Jun, Dysuria R30.0 [place] [address] [address] Jun, [place] [address] [address] Jun, Urinary tract infection, site not specif ied N39.0 ; Acute vaginitis N76.0 and Diarrhea, unspecified type R19.7 [place] [address] [address] May, [facility] [id number] [place] [address] April, [facility] [address] [id number] [place] [id number] April, Encounter for dental examination Z01.20 [facility] [id number] [place] [address] April, [facility] [address] [address] April, Tremor R25.1 and Episodic tension-type h eadache, not intractable G44.219 [facility] [address] [address] Mar, [facility] [address] [address] Jan, Mood disorder F39 [facility] [address] [place] [id number] [address] [place] [address] Jan, [facility] [id number] [place] [address] Jan, [facility] [address] [address] Jan, [facility] [address] [address] Jan, [facility] [address] [address] Jan, [facility] [id number] [place] [address] Jan, [facility] [address] [facility] [id number] [address] [place] [address] Dec, Acute diarrhea R19.7 [facility] [id number] [place] [address] Dec, [facility] [address] [address] Dec, [place] [address] [address] Dec, [facility] [address] [facility] [id number] [address] [place] [address] Dec, N&V (nausea and vomiting) R1 1.2 [facility] [address] [address] Dec, Generalized anxiety disorder F41.1 [facility] [address] [address] Dec, Generalized anxiety disorder F41.1 [facility] [address] [address] Nov, Post concussion syndrome F07.81 [facility] [address] [address] Nov, Generalized anxiety disorder F41.1 [facility] [address] [address] Nov, [facility] [address] [address] Nov, Generalized anxiety disorder F41.1 [facility] [address] [id number] Oct, Dental caries K02.9 [facility] [address] [address] Oct, [facility] [address] [id number] Oct, Dental examination Z01.20 [facility] [address] [id number] Oct, Encounter for dental examination Z01.20 [facility] [address] [address] Oct, CAD (coronary artery disease) I25.10 [facility] [address] [address] Sep, Generalized anxiety disorder F41.1 [facility] [address] [address] Sep, [facility] [address] [address] Sep, Rash and other nonspecific skin eruption R21 and Yeast vaginitis B37.3 [facility] [address] [address] Sep, Generalized anxiety disorder F41.1 [facility] [address] [address] Aug, Insect bites 919.4 and Hemorrhoids 455.6 [facility] [address] [address] Aug, Generalized anxiety disorder 300.02 [facility] [address] [address] Aug, [facility] [address] [address] Aug, [facility] [address] [address] Aug, Generalized anxiety disorder 300.02 ; No condition on [place] II V71.09 ; Heart problem 429.9 and Hypertension 401.9 [facility] [address] [address] Aug, [facility] [address] [address] Jul, [facility] [address] [address] Jul, [facility] [address] [address] Jul, [facility] [address] [address] Jul, [facility] [address] [address] Jul, Rash 782.1 [facility] [id number] [place] [address] Jul, UTI (urinary tract infection) 599.0 [facility] [id number] [place] [address] Jul, [facility] [address] [id number] [place] [address] Jun, Dysthymia 300.4 and Anxiety 300.00 [facility] [address] [id number] [place] [address] Jun, 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 [facility] [address] [id number] [place] [address] May, [facility] [address] [id number] [place] [address] May, [facility] [id number] [place] [address] May, Unspecified breast screening V76.10 [facility] [address] [id number] May, Dental examination V72.2 [facility] [id number] [place] [address] April, [facility] [id number] [place] [address] April, [facility] [address] [id number] April, Dental examination V72.2 [facility] [address] [id number] April, Dental examination V72.2 [facility] [id number] [place] [address] Mar, [facility] [id number] [place] [address] Mar, [facility] [id number] [place] [address] Jan, [facility] [id number] [place] [address] 25 Jan, 2014 [facility] [address] [facility] [id number] [place] [address] 18 Jan, 2015 [facility] [address] [facility] [id number] [place] [address] 18 Jan, 2015 [facility] [address] [id number] [place] [address] 16 Jan, 2015 [facility] [address] [facility] [id number] [place] [address] 16 Jan, 2014 [facility] [address] [facility] [id number] [place] [address] 13 Jan, 2015 [facility] [address] [id number] [place] [address] 13 Jan, 2015 [facility] [address] [id number] [place] [address] 11 Jan, 2015 [facility] [address] [id number] [place] [address] 11 Jan, 2014 [facility] [address] [facility] [id number] [place] [address] Jan, [facility] [address] [id number] [place] [address] Jan, [facility] [address] [id number] [place] [address] 09 Jan, 2015 [facility] [address] [id number] [place] [address] Jan, [facility] [address] [facility] [id number] [place] [address] Jan, 2014 [facility] [address] [id number] [place] [address] Jan, 2014 [facility] [address] [id number] [place] [address] 10 Jan, 2014 [facility] [address] [id number] [place] [address] Jan, 2014 [facility] [address] [facility] [id number] [place] [address] Jan, 2014 [facility] [address] [id number] [place] [address] Jan, 2014 [facility] [address] [id number] [place] [address] Jan, [facility] [address] [id number] [place] [address] Jan, [facility] [address] [id number] [place] [address] Dec, [facility] [address] [id number] [place] [address] Dec, [facility] [address] [id number] [place] [address] Dec, [facility] [address] [id number] [place] [address] Dec, [facility] [address] [id number] [place] [address] Nov, [facility] [address] [id number] [place] [address] Nov, [facility] [address] [id number] [place] [address] Nov, [facility] [address] [id number] [place] [address] Nov, [facility] [address] [id number] [place] [address] Nov, [facility] [address] [id number] [place] [address] Nov, [facility] [address] [id number] [place] [address] Nov, [facility] [address] [id number] [place] [address] Oct, [facility] [address] [id number] [place] [address] Oct, [facility] [address] [id number] [place] [address] Oct, [facility] [address] [id number] [place] [address] Oct, [facility] [address] [id number] [place] [address] Oct, [facility] [address] [id number] [place] [address] Oct, [facility] [address] [id number] [place] [address] Oct, [facility] [address] [id number] [place] [address] Oct, [facility] [address] [id number] [place] [address] Oct, [facility] [address] [id number] [place] [address] Oct, [facility] [address] [id number] [place] [address] Oct, [facility] [address] [id number] [place] [address] Oct, [facility] [address] [id number] [place] [address] Sep, [facility] [address] [id number] [place] [address] Sep, [facility] [address] [id number] [place] [address] Sep, [facility] [id number] [place] [address] Sep, [facility] [address] [id number] [place] [address] Jul, [facility] [address] [id number] [place] [address] Jul, [facility] [address] [id number] [place] [address] Jul, [facility] [address] [id number] [place] [address] Jul, [facility] [address] [id number] [place] [address] Jun, [facility] [address] [id number] [place] [address] Jun, [facility] [address] [facility] [id number] [place] [address] Jun, [facility] [address] [id number] [place] [address] Jun, [facility] [address] [id number] [place] [address] May, [facility] [address] [id number] [place] [address] May, [facility] [address] [id number] [place] [address] April, [facility] [address] [id number] [place] [address] April, [facility] [address] [id number] [place] [address] April, [facility] [address] [id number] [place] [address] April, [facility] [address] [id number] [place] [address] April, [facility] [address] [id number] [place] [address] April, [facility] [address] [id number] [place] [address] April, [facility] [address] [id number] [place] [address] April, [facility] [address] [id number] [place] [address] April, [facility] [address] [facility] [id number] [place] [address] Mar, [facility] [address] [facility] [id number] [place] [address] Mar, [facility] [address] [id number] [place] [address] Mar, [facility] [address] [id number] [place] [address] Mar, [facility] [address] [facility] [id number] [place] [address] Jan, [facility] [address] [id number] [place] [address] Jan, [facility] [address] [id number] [place] [address] Jan, [facility] [address] [id number] [place] [address] Jan, [facility] [address] [id number] [place] [address] Jan, [facility] [address] [id number] [place] [address] Jan, [facility] [address] [id number] [place] [address] Jan, [facility] [address] [id number] [place] [address] Jan, [facility] [address] [id number] [place] [address] Jan, [facility] [address] [facility] [id number] [place] [address] Jan, [facility] [address] [id number] [place] [address] Jan, [facility] [address] [id number] [place] [address] Jan, [facility] [address] [id number] [place] [address] Dec, [facility] [address] [facility] [id number] [place] [address] Dec, [facility] [address] [id number] [place] [address] Dec, [facility] [address] [id number] [place] [address] Dec, [facility] [address] [id number] [place] [address] Nov, [facility] [address] [id number] [place] [address] Nov, [facility] [address] [id number] [place] [address] Nov, [facility] [address] [id number] [place] [address] Nov, [facility] [address] [id number] [place] [address] Oct, [facility] [address] [id number] [place] [address] Oct, [facility] [address] [id number] [place] [address] Sep, [facility] [address] [id number] [place] [address] Sep, [facility] [address] [id number] [place] [address] Jul, [facility] [address] [facility] [id number] [place] [address] Jul, [facility] [address] [id number] [place] [address] Jun, [facility] [address] [id number] [place] [address] Jun, [facility] [address] [id number] [place] [address] Jun, [facility] [address] [id number] [place] [address] May, [facility] [address] [id number] [place] [address] May, [facility] [address] [id number] [place] [address] May, [facility] [address] [id number] [place] [address] May, [facility] [address] [id number] [place] [address] May, [facility] [address] [id number] [place] [address] April, [facility] [address] [id number] [place] [address] April, [facility] [address] [id number] [place] [address] April, [facility] [address] [id number] [place] [address] April, [facility] [address] [id number] [place] [address] April, [facility] [address] [id number] [place] [address] April, [facility] [address] [id number] [place] [address] Mar, [facility] [address] [id number] [place] [address] Mar, [facility] [address] [id number] [place] [address] Jan, [facility] [address] [id number] [place] [address] Jan, [facility] [address] [id number] [place] [address] 05 Jan, 2013 [facility] [address] [id number] [place] [address] Jan, [facility] [address] [id number] [place] [address] Jan, [facility] [address] [id number] [place] [address] Jan, [facility] [address] [id number] [place] [address] Jan, [facility] [address] [id number] [place] [address] Jan, [facility] [address] [id number] [place] [address] Jan, [facility] [address] [id number] [place] [address] Jan, [facility] [address] [id number] [place] [address] Jan, [facility] [address] [id number] [place] [address] Dec, [facility] [address] [id number] [place] [address] Nov, [facility] [address] [id number] [place] [address] Nov, [facility] [address] [id number] [place] [address] Nov, [facility] [address] [id number] [place] [address] Nov, [facility] [address] [id number] [place] [address] Nov, [facility] [id number] [place] [address] Nov, [facility] [address] [id number] [place] [address] Nov, [facility] [address] [id number] [place] [address] Nov, [facility] [address] [id number] [place] [address] Nov, [facility] [address] [id number] [place] [address] Nov, [facility] [address] [id number] [place] [address] Nov, [facility] [address] [id number] [place] [address] Nov, [facility] [address] [id number] [place] [address] Nov, [facility] [address] [id number] [place] [address] Oct, [facility] [address] [id number] [place] [address] Oct, [facility] [id number] [place] [address] Oct, [facility] [address] [id number] [place] [address] Sep, [facility] [address] [id number] [place] [address] Sep, [facility] [address] [id number] [place] [address] Sep, [facility] [address] [id number] [place] [address] Sep, [facility] [address] [id number] [place] [address] Aug, [facility] [address] [id number] [place] [address] 20 Aug, 2012 [facility] [address] [id number] [place] [address] 24 Jul, 2012 [facility] [address] [id number] [place] [address] May, [facility] [address] [id number] [place] [address] 14 May, 2012 [facility] [address] [facility] [id number] [place] [address] 14 May, 2012 [facility] [address] [id number] [place] [address] April, [facility] [address] [id number] [place] [address] Mar, [facility] [address] [id number] [place] [address] Mar, [facility] [address] [facility] [id number] [place] [address] Mar, [facility] [address] [id number] [place] [address] Jan, [facility] [address] [id number] [place] [address] Jan, [facility] [address] [id number] [place] [address] Jan, [facility] [address] [id number] [place] [address] Dec, [facility] [address] [id number] [place] [address] Dec, [facility] [address] [id number] [place] [address] Dec, [facility] [address] [id number] [place] [address] Dec, [facility] [address] [id number] [place] [address] Nov, [facility] [address] [id number] [place] [address] Nov, [facility] [address] [id number] [place] [address] Nov, [facility] [address] [id number] [place] [address] Oct, [facility] [address] [id number] [place] [address] 31 Sep, 2011 [facility] [address] [id number] [place] [address] 26 Sep, 2011 [facility] [address] [id number] [place] [address] 13 Sep, 2011 [facility] [address] [id number] [place] [address] 15 Nov, 2010 [facility] [address] [id number] [place] [address] 23 Oct, 2010 [facility] [address] [id number] [place] [address] Oct, [facility] [address] [id number] [place] [address] Oct, [facility] [address] [id number] [place] [address] 16 Oct, 2010 [facility] [address] [id number] [place] [address] Sep, [facility] [address] [id number] [place] [address] April, [facility] [address] [id number] [place] [address] 29 Nov, 2009 [facility] [address] [id number] [place] [address] 24 Nov, 2009 [facility] [address] [id number] [place] [address] 22 Nov, 2009 [facility] [address] [id number] [place] [address] 10 Nov, 2009 [facility] [address] [id number] [place] [address] 10 Nov, 2009 [facility] [address] [id number] [place] [address] Oct, [facility] [address] [id number] [place] [address] Oct, [facility] [address] [facility] [id number] [place] [address] Sep, [facility] [address] [facility] [id number] [place] [address] Jan, IMMUNIZATIONS No Known Immunizations SOCIAL HISTORY Never Assessed REASON FOR VISIT PLAN OF CARE VITAL SIGNS MEDICATIONS Unknown Medications RESULTS No Results PROCEDURES Procedure Date Ordered Result Body Site COMPLETE CBC W/AUTO DIFF WBC February 05, 2014 ASSAY THYROID STIM HORMONE February 05, 2014 LIPID PANEL February 05, 2014 COMPREHEN METABOLIC PANEL February 05, 2014 VENIPUNCT, ROUTINE* February 05, 2014 INSTRUCTIONS MEDICATIONS ADMINISTERED No Known Medications MEDICAL [...] Intertrechanteric hip fx 04/27/16 [facility] treatments in past in [place] oct 2016 [facility]
[2020-04-18 20:19] LABS: ALANINE AMINOTRANSFERASE 18 U/L (0-55); ALBUMIN 3.9 GM/DL (3.2-4.5); ALKALINE PHOSPHATASE 107 U/L (40-136); BUN/CREATININE RATIO 10; CALCIUM 8.2 MG/DL (8.5-10.1); CARBON DIOXIDE 14 MMOL/L (21-32); CHLORIDE 83 MMOL/L (98-107); CREATININE SERUM 0.86 MG/DL (0.60-1.30); GFR ESTIMATED > 60; GLUCOSE 147 MG/DL (70-105); MAGNESIUM 1.8 MG/DL (1.6-2.4); POTASSIUM 5.7 MMOL/L (3.6-5.0); TOTAL PROTEIN 6.9 GM/DL (6.4-8.2)
[2020-04-18 20:20] LABS: SODIUM 110 MMOL/L (135-145)
--- NOTE | 2020-04-18 20:20 | ED General ---
General Chief Complaint: Respiratory Problems Stated Complaint: RESPIRATORY DISTRESS Nursing Triage Note: Patient presented to the ER via EMS secondary to severe shortness . EMS advised that patients initial spo2 was 79%. Nursing care facility did not have the patient on oxygen. Nursing Sepsis Screen: No Definite Risk Source of Information: Patient Exam Limitations: No Limitations History of Present Illness Date Seen by Provider: April 18, 2020 Time Seen by Provider: 19:46 Initial Comments Here by EMS from [facility] with report of acute shortness of air. Apparently O2 saturations were 79% on EMS arrival. Patient was not on oxygen on their arrival. They did place her on high flow O2. They did note that she had significant crackles bilateral. Patient does have history of heart failure. No report of recent fever. Ultimately EMS placed patient on CPAP and gave DuoNeb as well as Solu-Medrol IV. Saturations markedly improved as well as respiratory status. Arrives with O2 sat 99% on CPAP. Patient states she feels better but is still a little short of breath. Converted to BiPAP here. Patient denies chest pain, nausea, vomiting or diarrhea. Does admit to worsening shortness of breath today. Timing/Duration: 12 Hours Severity: Severe Associated Systoms: No Chest Pain; Cough; No Fever/Chills, No Nausea/Vomiting; Shortness of Air, Weakness Allergies and Home Medications Allergies Coded Allergies: clindamycin (Unverified Allergy, Unknown, 02/11/19) morphine (Verified Allergy, Unknown, 02/11/19) can take hydrocodone per pt Home Medications Acetaminophen 500 Mg Tablet, 500 MG PO Q4H PRN for PAIN-MILD, (Reported) Aspirin 81 Mg Tablet.dr, 81 MG PO HS, (Reported) Atorvastatin Calcium 20 Mg Tablet, 80 MG PO HS Prescribed by: MARIAH BOWDEN on 01/26/20 1407 Carvedilol 3.125 Mg Tablet, 3.125 MG PO BID Prescribed by: RED ALVARADO on 01/28/20 0950 Cholecalciferol (Vitamin D3) 1,000 Unit Tablet, 2,000 UNIT PO HS, (Reported) Clonazepam 0.5 Mg Tablet, 0.5 MG PO HS, (Reported) Clopidogrel Bisulfate 75 Mg Tablet, 75 MG PO DAILY, (Reported) Duloxetine HCl 60 Mg Capsule.dr, 60 MG PO DAILY, (Reported) Folic Acid 1 Mg Tablet, 1 MG PO HS, (Reported) Furosemide 40 Mg Tablet, 80 MG PO DAILY Prescribed by: MARIAH BOWDEN on 01/26/20 1411 Magnesium Hydroxide 400 Mg/5 Ml Oral.susp, 30 ML PO DAILY PRN for CONSTIPATION- 7TH LINE, (Reported) Mirtazapine 15 Mg Tablet, 15 MG PO HS, (Reported) Potassium Chloride 20 Meq Tab.er.prt, 20 MEQ PO BID WITH MEALS Prescribed by: MELANY STOKES on 06/10/19 1155 Promethazine HCl 25 Mg Supp, 25 MG DC Q4H PRN for NAUSEA/VOMITING-2ND LINE Prescribed by: AILEEN MUNIZ on 01/28/20 1010 Rivastigmine 1 Each Patch.td24, 9.5 MG TD DAILY, (Reported) Sacubitril/Valsartan 1 Each Tablet, 1 TAB PO BID Prescribed by: MELANY STOKES on 06/10/19 1155 Sennosides 8.6 Mg Tablet, 8.6 MG PO DAILY, (Reported) Patient Home Medication List Home Medication List Reviewed: Yes Review of Systems Review of Systems Constitutional: see HPI; No fever; weakness EENTM: no symptoms reported Respiratory: cough, dyspnea on exertion, short of breath, wheezing Cardiovascular: No chest pain; edema; No palpitations (mild) Gastrointestinal: No abdominal pain, No nausea, No vomiting Genitourinary: no symptoms reported Musculoskeletal: no symptoms reported Skin: no symptoms reported Psychiatric/Neurological: No Symptoms Reported All Other Systems Reviewed Negative Unless Noted: Yes Past Bfhmpxb-Fyhpzi-Xkstce Hx Past Med/Social Hx: Reviewed Nursing Past Med/Soc Hx Patient Social History Alcohol Use: Denies Use Recreational Drug Use: No Smoking Status: Never a Smoker Recent Foreign Travel: No Contact w/Someone Who Travel: No Recent Infectious Disease Expo: No Recent Hopitalizations: No Immunizations Up To Date Tetanus Booster (TDap): Unknown Date of Pneumonia Vaccine: April 01, 2009 Date of Influenza Vaccine: Sep 01, 2018 Seasonal Allergies Seasonal Allergies: No Past Medical History Surgeries: Yes (TRIPLE BYPASS-2005, r HIP REPLAEMENT , l hip 2016) Breast, Cardiac, CABG, Joint Replacement, Open Heart Surgery, Orthopedic Respiratory: No Currently Using CPAP: No Cardiac: Yes (CABG, chf) Atrial Fibrillation, Coronary Artery Disease, High Cholesterol, Hypertension Neurological: Yes Dementia Reproductive Disorders: Yes Female Reproductive Disorders: Denies [employer] History: Menopausal Sexually Transmitted Disease: No HIV/AIDS: No Genitourinary: Yes Bladder Infection, UTI-Chronic Gastrointestinal: Yes Gastroesophageal Reflux, Chronic Constipation Musculoskeletal: Yes Arthritis, Fractures Endocrine: No HEENT: No Cancer: No Psychosocial: Yes Anxiety, Depression Integumentary: Yes Pruritis Blood Disorders: No Adverse Reaction/Blood Tranf: No Family Medical History Reviewed Nursing Family Hx Cardiovascular disease 19 MOTHER Diabetes mellitus G8 BROTHER Hypercholesterolemia 19 FATHER Physical Exam-Suspected Sepsis Physical Exam Vital Signs Vital Signs - First Documented 04/18/20 20:00 Temp 37.0 Pulse 58 Resp 18 B/P (MAP) 108/49 (68) Pulse Ox 98 O2 Delivery NIV Bilevel Capillary Refill : Less Than 3 Seconds Blood Pressure Mean: 68 Height, Weight, BMI Height: 5'5.00" Weight: 169lbs. 5.0oz. 76.835881nd; 27.00 BMI Method:Stated General Appearance: Chronically ill, Mild Distress HEENT: PERRL/EOMI, Pharynx Normal Neck: Full Range of Motion, Normal Inspection, Non Tender, Supple Respiratory: Crackles (throughout with left greater than right), Expiration, Inspiration, Respiratory Distress (improved on BiPAP) Cardiovascular: Regular Rate, Rhythm, No Murmur Gastrointestinal: Non Tender, Soft, Other (mild gastric distention noted) Back: Normal Inspection, No CVA Tenderness, No Vertebral Tenderness Extremity: Normal Range of Motion, Non Tender Neurologic/Psychiatric: Alert, Oriented x3 Skin: normal color, warm/dry Focused Exam Lactate Level 04/18/20 19:42: Lactic Acid Level 3.03*H Lactic Acid Level Laboratory Tests Test 04/18/20 19:42 Lactic Acid Level 3.03 MMOL/L (0.50-2.00) *H Progress/Results/Core Measures Suspected Sepsis Recent Fever Within 48 Hours: No Infection Criteria Present: None New/Unexplained Altered Menta: No Sepsis Screen: No Definite Risk SIRS Temperature: Pulse: 58 Respiratory Rate: 18 Laboratory Tests 04/18/20 19:42: White Blood Count 14.8H Blood Pressure 108 /49 Mean: 68 04/18/20 19:42: Lactic Acid Level 3.03*H Laboratory Tests 04/18/20 19:42: Creatinine 0.86, Platelet Count 161, Total Bilirubin 1.0 Results/Orders Lab Results Laboratory Tests Test 04/18/20 19:42 04/18/20 20:05 Range/Units White Blood Count 14.8 H 4.3-11.0 10^3/uL Red Blood Count 3.89 L 4.35-5.85 10^6/uL Hemoglobin 11.8 11.5-16.0 G/DL Hematocrit 33 L 35-52 % Mean Corpuscular Volume 84 80-99 FL Mean Corpuscular Hemoglobin 30 25-34 PG Mean Corpuscular Hemoglobin Concent 36 32-36 G/DL Red Cell Distribution Width 16.3 H 10.0-14.5 % Platelet Count 161 130-400 10^3/uL Mean Platelet Volume 12.6 H 7.4-10.4 FL Neutrophils (%) (Auto) 84 H 42-75 % Lymphocytes (%) (Auto) 3 L 12-44 % Monocytes (%) (Auto) 13 H 0-12 % Eosinophils (%) (Auto) 0 0-10 % Basophils (%) (Auto) 0 0-10 % Neutrophils # (Auto) 12.3 H 1.8-7.8 X 10^3 Lymphocytes # (Auto) 0.5 L 1.0-4.0 X 10^3 Monocytes # (Auto) 1.9 H 0.0-1.0 X 10^3 Eosinophils # (Auto) 0.0 0.0-0.3 10^3/uL Basophils # (Auto) 0.0 0.0-0.1 10^3/uL Neutrophils % (Manual) 78 % Lymphocytes % (Manual) 5 % Monocytes % (Manual) 16 % Band Neutrophils 1 % Blood Morphology Comment NORMAL Sodium Level 110 *L 135-145 MMOL/L Potassium Level 5.7 H 3.6-5.0 MMOL/L Chloride Level 83 L 98-107 MMOL/L Carbon Dioxide Level 14 L 21-32 MMOL/L Anion Gap 13 5-14 MMOL/L Blood Urea Nitrogen 9 7-18 MG/DL Creatinine 0.86 0.60-1.30 MG/DL Estimat Glomerular Filtration Rate > 60 BUN/Creatinine Ratio 10 Glucose Level 147 H 70-105 MG/DL Lactic Acid Level 3.03 *H 0.50-2.00 MMOL/L Calcium Level 8.2 L 8.5-10.1 MG/DL Corrected Calcium 8.3 L 8.5-10.1 MG/DL Magnesium Level 1.8 1.6-2.4 MG/DL Total Bilirubin 1.0 0.1-1.0 MG/DL Aspartate Amino Transf (AST/SGOT) 27 5-34 U/L Alanine Aminotransferase (ALT/SGPT) 18 0-55 U/L Alkaline Phosphatase 107 40-136 U/L Troponin I < 0.028 <0.028 NG/ML C-Reactive Protein High Sensitivity 10.77 H 0.00-0.50 MG/DL B-Type Natriuretic Peptide 3636.6 H <100.0 PG/ML Total Protein 6.9 6.4-8.2 GM/DL Albumin 3.9 3.2-4.5 GM/DL Blood Gas Puncture Site LEFT RADIAL Blood Gas Patient Temperature 37.0 Arterial Blood pH 7.45 H 7.37-7.43 Arterial Blood Partial Pressure CO2 30 L 35-45 MMHG Arterial Blood Partial Pressure O2 104 H 79-93 MMHG Arterial Blood HCO3 21 L 23-27 MMOL/L Arterial Blood Total CO2 21.8 21.0-31.0 MMOL/L Arterial Blood Oxygen Saturation 98 94-100 % Arterial Blood Base Excess -2.5 -2.5-2.5 MMOL/L Erlin Test YES-POS Blood Gas Ventilator Setting NA Blood Gas Inspired Oxygen 50% My Orders Orders - MEI HILL MD Arterial Blood Gas (04/18/20 19:50) BNP (04/18/20 19:50) Cbc With Automated Diff (04/18/20 19:50) Comprehensive Metabolic Panel (04/18/20 19:50) Hs C Reactive Protein (04/18/20 19:50) Magnesium (04/18/20 19:50) Troponin I (04/18/20 19:50) Chest 1 View, Ap/Pa Only (04/18/20 19:50) Rt Request For Service (04/18/20 19:50) Manual Differential (04/18/20 19:42) Lactic Acid Analyzer (04/18/20 20:12) Blood Culture (04/18/20 20:12) Arterial Blood Gas (04/18/20 20:05) Ns Iv 500 Ml (Sodium Chloride 0.9%) (04/18/20 20:30) Piperacillin Sodium/Tazobactam (Zosyn Vi (04/18/20 20:45) Furosemide Injection (Lasix Injection) (04/18/20 20:44) Catheter(Urinary) Insert & Ass 03,15 (04/18/20 20:44) Medications Given in ED Current Medications Medications Dose Ordered Sig/Mayela Route Start Time Stop Time Status Last Admin Dose Admin Piperacillin Sod/ Tazobactam Sod 4.5 gm/Sodium Chloride 100 ml @ 200 mls/hr ONCE ONCE IV 04/18/20 20:45 04/18/20 21:14 DC 04/18/20 21:02 200 MLS/HR Vital Signs/I&O 04/18/20 20:00 Temp 37.0 Pulse 58 Resp 18 B/P (MAP) 108/49 (68) Pulse Ox 98 O2 Delivery NIV Bilevel Capillary Refill : Less Than 3 Seconds Blood Pressure Mean: 68 Progress Note : Progress Note Seen and evaluated. IV, labs, chest x-ray and ABG ordered. Patient on BiPAP initially at 15/5 and changed to 12/5 due to gastric distention. FiO2 down to 50% with O2 sat greater than 94%. Blood cultures and lactic acid ordered. Patient has history of CHF and is on Lasix. We will evaluate the BNP. Monitor patient. 2109: I did discuss the case with Dr. Mendes at 2055. Patient has findings of heart failure with BNP grossly elevated. Lasix 80 mg IV ordered as well as Ansari catheter. He accepts patient in consult. I did discuss the case with Dr. Muniz at 2102 and she accepts patient for admission, inpatient status to the ICU. There is question of left lower lobe pneumonia but may be related to heart failure. Patient has history of both. We will initiate Zosyn and vancomycin given that she is a senior care patient. She is afebrile and from protective setting in the senior care. No concerns for COVID-19 currently. 2111: I did discuss the case with the virtual ICU physician team and updated them on admission. I did discuss the case with the patient's daughter and updated her on condition and admission. Admit, inpatient status. Patient agrees to plan. She is doing better on BiPAP. Diagnostic Imaging Diagonstic Imaging: Xray Plain Films/CT/US/NM/MRI: chest Comments [facility] [place], [place] NAME: BAYLEE PEPE [facility] REC#: [id number] PT STATUS: REG ER : 1940 PHYSICIAN: MEI HILL MD ADMIT DATE: 04/18/20/ER Signed Date of Exam:04/18/20 CHEST 1 VIEW, AP/PA ONLY INDICATION: Shortness of breath. COMPARISON made with a prior study from January 28, 2020. FINDINGS: The patient is status post prior sternotomy and coronary artery bypass grafting. There is marked enlargement of the cardiac silhouette. While there are chronic interstitial changes within the lungs there appears to be new interstitial and alveolar prominence particularly at the left lung base. This may reflect inflammatory infiltrate or mild edema. There is also blunting of the left costophrenic angle suggesting a small effusion. There is no pneumothorax. IMPRESSION: 1. Enlarged cardiac silhouette with previous bypass grafting. 2. Chronic pulmonary interstitial changes with new interstitial and alveolar opacities predominantly at the left lung base. There also appears to be a small left effusion. This may reflect a region of inflammatory infiltrate or mild edema. Dictated by: Dictated on workstation # [id number] Dict: 04/18/202026 Trans: 04/18/202105 [facility] [id number] Interpreted by: MICHAEL CARDOZO MD Electronically signed by: MICHAEL CARDOZO MD 04/18/202105 Departure Communication (Admissions) Time/Spoke to Admitting Phy: 21:02 Time/Spoke to Consulting Phy: 21:56 Impression Primary Impression: Acute on chronic combined systolic (congestive) and diastolic (congestive) heart failure Additional Impression: Left lower lobe pneumonia Qualified Codes: J18.1 - Lobar pneumonia, unspecified organism Disposition: ADMITTED INPATIENT Condition: Stable Admissions Decision to Admit Reason: Admit from ER (General) Decision to Admit/Date: April 18, 2020 Time/Decision to Admit Time: 20:56 Departure-Patient Inst. Referrals: [facility] [place] (PCP/Family) Primary Care Physician MEI HILL MD April 18, 2020 20:20
--- NOTE | 2020-04-18 20:31 | Diagnostic Imaging Report ---
INDICATION: Shortness of breath. COMPARISON made with a prior study from January 28, 2020. FINDINGS: The patient is status post prior sternotomy and coronary artery bypass grafting. There is marked enlargement of the cardiac silhouette. While there are chronic interstitial changes within the lungs there appears to be new interstitial and alveolar prominence particularly at the left lung base. This may reflect inflammatory infiltrate or mild edema. There is also blunting of the left costophrenic angle suggesting a small effusion. There is no pneumothorax. IMPRESSION: 1. Enlarged cardiac silhouette with previous bypass grafting. 2. Chronic pulmonary interstitial changes with new interstitial and alveolar opacities predominantly at the left lung base. There also appears to be a small left effusion. This may reflect a region of inflammatory infiltrate or mild edema. Dictated by: Dictated on workstation # [id number]
[2020-04-18] MEDS: NS IV 500 ML 500 ML IV SCH (20:39)
--- OUTSIDE RECORDS SUMMARY | 2020-04-18 20:40 | XMS REPORT | Continuity of Care Document ---
Author Organization Unknown Address Unknown Phone Unavailable Allergies Active Description Code Type Severity Reaction Onset Reported/Identified Relationship to Patient Clinical Status Yes NKANo Known Allergies NKA Miscellaneous Allergy Unknown N/A 10/07/2006 Yes clindamycin [id number] Drug Aller gy Unknown N/A 02/11/2019 Yes morphine [id number] Drug Allergy Unknown N/A 02/11/2019 Medications There is no data. Problems Date Dx Coded Attending Type Code Diagnosis Diagnosed By 09/01/2008 462 Pharyn gitis Acute 09/01/2008 787.91 Darya rrhea 09/01/2008 462 Pharyn gitis Acute 09/01/2008 787.91 Darya rrhea 09/01/2008 KAELA CALHOUN DDS 46 2 Pharyngitis Acute 09/01/2008 KAELA CALHOUN DDS 787.91 Diarrhea 09/01/2008 HUSAM ORLANDO APRN 46 2 Pharyngitis Acute 09/01/2008 HUSAM ORLANDO APRN 787.91 Diarrhea 09/01/2008 WOLF AGUIRRE APRN S 462 Pharyngitis Acute 09/01/2008 WOLF AGUIRRE APRN 787.91 Diarrhea 09/01/2008 462 Pharyn gitis Acute 09/01/2008 787.91 Darya rrhea 09/01/2008 MORAIMA NICOLE DO 462 Pharyngitis Acute 09/01/2008 MORAIMA NICOLE DO 787.91 Diarrhea 09/01/2008 462 Pharyn gitis Acute 09/01/2008 787.91 Darya rrhea 09/01/2008 462 Pharyn gitis Acute 09/01/2008 787.91 Darya rrhea 09/01/2008 462 Pharyn gitis Acute 09/01/2008 787.91 Darya rrhea 09/01/2008 462 Pharyn gitis Acute 09/01/2008 787.91 Darya rrhea 09/01/2008 JUAREZ GREEN DDS 4 62 Pharyngitis Acute 09/01/2008 NORMA DDS, JUAREZ Pierre 787.91 Diarrhea 09/01/2008 NORMA DDS, JUAREZ Pierre 4 62 Pharyngitis Acute 09/01/2008 NORMA DDS, JUAREZ Pierre 787.91 Diarrhea 09/01/2008 NICOLE DO, MORAIMA K 462 Pharyngitis Acute 09/01/2008 NICOLE DO, MORAIMA K 787.91 Diarrhea 09/01/2008 TIMOTHY OFFICE MACHINE TECHNICIAN, WOLF S 462 Pharyngitis Acute 09/01/2008 TIMOTHY OFFICE MACHINE TECHNICIAN, WOLF S 787.91 Diarrhea 09/01/2008 TIMOTHY OFFICE MACHINE TECHNICIAN, WOLF S 462 Pharyngitis Acute 09/01/2008 TIMOTHY OFFICE MACHINE TECHNICIAN, WOLF S 787.91 Diarrhea 09/01/2008 TIMOTHY OFFICE MACHINE TECHNICIAN, WOLF S 462 Pharyngitis Acute 09/01/2008 TIMOTHY OFFICE MACHINE TECHNICIAN, WOLF S 787.91 Diarrhea 09/01/2008 TIMOTHY OFFICE MACHINE TECHNICIAN, WOLF S 462 Pharyngitis Acute 09/01/2008 TIMOTHY OFFICE MACHINE TECHNICIAN, WOLF S 787.91 Diarrhea 09/01/2008 TIMOTHY OFFICE MACHINE TECHNICIAN, WOLF S 462 Pharyngitis Acute 09/01/2008 TIMOTHY OFFICE MACHINE TECHNICIAN, WOLF S 787.91 Diarrhea 09/01/2008 WHITE DDS, MELISSA J 46 2 Pharyngitis Acute 09/01/2008 WHITE DDS, MELISSA J 787.91 Diarrhea 09/01/2008 TAN DDSMARIA LUISA 46 2 Pharyngitis Acute 09/01/2008 TAN DDS, MARIA LUISA 787.91 Diarrhea 09/01/2008 JOHANNY KAN, HUSAM Hall 46 2 Pharyngitis Acute 09/01/2008 HUSAM ORLANDO APRN 787.91 Diarrhea 09/01/2008 TIMOTHY OFFICE MACHINE TECHNICIAN, WOLF S 462 Pharyngitis Acute 09/01/2008 TIMOTHY OFFICE MACHINE TECHNICIAN, WOLF S 787.91 Diarrhea 09/01/2008 TIMOTHY OFFICE MACHINE TECHNICIAN, WOLF S 462 Pharyngitis Acute 09/01/2008 TIMOTHY OFFICE MACHINE TECHNICIAN, WOLF S 787.91 Diarrhea 09/01/2008 CASSIE DOMINGUEZ, KADY Raymundo 462 Pharyngitis Acute 09/01/2008 CASSIE DOMINGUEZ, KADY Raymundo 787. 91 Diarrhea 09/01/2008 TIMOTHY GAINESN, WOLF S 462 Pharyngitis Acute 09/01/2008 TIMOTHY OFFICE MACHINE TECHNICIAN, WOLF S 787.91 Diarrhea 09/01/2008 TIMOTHY GAINESN, WOLF S 462 Pharyngitis Acute 09/01/2008 TIMOTHY OFFICE MACHINE TECHNICIAN, WOLF S 787.91 Diarrhea 09/01/2008 TAN DDS, MARIA LUISA 46 2 Pharyngitis Acute 09/01/2008 TAN DDS, MARIA LUISA 787.91 Diarrhea 09/01/2008 MAX DDS, KATHYA Chopra 462 Pharyngitis Acute 09/01/2008 MAX DDS, KATHYA Chopra 787. 91 Diarrhea 02/11/2009 695.3 Rosacea 02/11/2009 695.3 Rosacea 02/11/2009 LJ DDS, KAELA Rdz 69 5.3 Rosacea 02/11/2009 HUSAM ORLANDO APRN 69 5.3 Rosacea 02/11/2009 YU AGUIRRE APRNA S 695.3 Rosacea 02/11/2009 695.3 Rosacea 02/11/2009 NICOLE DOMORAIMA 695.3 Rosacea 02/11/2009 695.3 Rosacea 02/11/2009 695.3 Rosacea 02/11/2009 695.3 Rosacea 02/11/2009 695.3 Rosacea 02/11/2009 NORMA DDS, JUAREZ Pierre 695.3 Rosacea 02/11/2009 NORMA DDS, JUAREZ Pierre 695.3 Rosacea 02/11/2009 NICOLE DOMORAIMA 695.3 Rosacea 02/11/2009 TIMOTHY KAN WOLF S 695.3 Rosacea 02/11/2009 TIMOTHY KAN WOLF S 695.3 Rosacea 02/11/2009 HAFSA AGUIRRE APRNNDA S 695.3 Rosacea 02/11/2009 TIMOTHY OFFICE MACHINE TECHNICIAN, WOLF S 695.3 Rosacea 02/11/2009 TIMOTHYSTARLA GAINESN, WOLF S 695.3 Rosacea 02/11/2009 GAGANDEEP WILCOXS, MELISSA Raymundo 69 5.3 Rosacea 02/11/2009 BRITNEY WILCOXS, MARIA LUISA 69 5.3 Rosacea 02/11/2009 HUSAM ORLANDO APRN 69 5.3 Rosacea 02/11/2009 TIMOTHY OFFICE MACHINE TECHNICIAN, WOLF S 695.3 Rosacea 02/11/2009 TIMOTHY GAINESN, WOLF S 695.3 Rosacea 02/11/2009 CASSIE DOMINGUEZ, KADY Raymundo 695. 3 Rosacea 02/11/2009 TIMOTHY GAINESN, WOLF S 695.3 Rosacea 02/11/2009 TIMOTHY GAINESN, WOLF S 695.3 Rosacea 02/11/2009 BRITNEY DDS, MARIA LUISA 69 5.3 Rosacea 02/11/2009 MAX WILCOXS, KATHYA Chopra 695. 3 Rosacea 03/31/2009 008.62 Gas troenteritis Viral Adenovirus 03/31/2009 008.62 Gas troenteritis Viral Adenovirus 03/31/2009 LJ WILCOXS, KAELA Rdz 008.62 Gastroenteritis Viral Adenovirus 03/31/2009 HUSAM ORLANDO APRN 008.62 Gastroenteritis Viral Adenovirus 03/31/2009 TIMOTHY KAN, WOLF S 008.62 Gastroenteritis Viral Adenovirus 03/31/2009 008.62 Gas troenteritis Viral Adenovirus 03/31/2009 MORAIMA NICOLE DO 008.62 Gastroenteritis Viral Adenovirus 03/31/2009 008.62 Gas troenteritis Viral Adenovirus 03/31/2009 008.62 Gas troenteritis Viral Adenovirus 03/31/2009 008.62 Gas troenteritis Viral Adenovirus 03/31/2009 008.62 Gas troenteritis Viral Adenovirus 03/31/2009 JUAREZ GREEN DDS 008.62 Gastroenteritis Viral Adenovirus 03/31/2009 JUAREZ GREEN DDS 008.62 Gastroenteritis Viral Adenovirus 03/31/2009 MORAIMA NICOLE DO 008.62 Gastroenteritis Viral Adenovirus 03/31/2009 HAFSA AGUIRRE APRNNDA S 008.62 Gastroenteritis Viral Adenovirus 03/31/2009 TIMOTHY OFFICE MACHINE TECHNICIAN, WOLF S 008.62 Gastroenteritis Viral Adenovirus 03/31/2009 TIMOTHYSTARLA KAN, WOLF S 008.62 Gastroenteritis Viral Adenovirus 03/31/2009 TIMOTHY OFFICE MACHINE TECHNICIAN, WOLF S 008.62 Gastroenteritis Viral Adenovirus 03/31/2009 TIMOTHY OFFICE MACHINE TECHNICIAN, WOLF S 008.62 Gastroenteritis Viral Adenovirus 03/31/2009 GAGANDEEP DDS, MELISSA Raymundo 008.62 Gastroenteritis Viral Adenovirus 03/31/2009 BRITNEY WILCOXS, MARIA LUISA 008.62 Gastroenteritis Viral Adenovirus 03/31/2009 HUSAM ORLANDO APRN 008.62 Gastroenteritis Viral Adenovirus 03/31/2009 TIMOTHYSTARLA KAN, WOLF S 008.62 Gastroenteritis Viral Adenovirus 03/31/2009 TIMOTHYSTARLA KAN, WOLF S 008.62 Gastroenteritis Viral Adenovirus 03/31/2009 CASSIE DOMINGUEZ, KADY Raymundo 008. 62 Gastroenteritis Viral Adenovirus 03/31/2009 TIMOTHYSTARLA KAN, WOLF S 008.62 Gastroenteritis Viral Adenovirus 03/31/2009 TIMOTHYSTARLA KAN, WOLF S 008.62 Gastroenteritis Viral Adenovirus 03/31/2009 BRITNEY WILCOXS, MARIA LUISA 008.62 Gastroenteritis Viral Adenovirus 03/31/2009 MAX DDS, KATHYA Chopra 008. 62 Gastroenteritis Viral Adenovirus 06/29/2009 599.0 Urin patty Tract Infection 06/29/2009 599.0 Urin patty Tract Infection 06/29/2009 LJ DDS, KAELA F 59 9.0 Urinary Tract Infection 06/29/2009 HUSAM ORLANDO APRN 59 9.0 Urinary Tract Infection 06/29/2009 HAFSA AGUIRRE APRNNDA S 599.0 Urinary Tract Infection 06/29/2009 599.0 Urin patty Tract Infection 06/29/2009 MORAIMA NICOLE DO 599.0 Urinary Tract Infection 06/29/2009 599.0 Urin patty Tract Infection 06/29/2009 599.0 Urin patty Tract Infection 06/29/2009 599.0 Urin patty Tract Infection 06/29/2009 599.0 Urin patty Tract Infection 06/29/2009 JUAREZ GREEN DDS 599.0 Urinary Tract Infection 06/29/2009 JUAREZ GREEN DDS 599.0 Urinary Tract Infection 06/29/2009 NICOLE DO, MORAIMA K 599.0 Urinary Tract Infection 06/29/2009 TIMOTHY OFFICE MACHINE TECHNICIAN, WOLF S 599.0 Urinary Tract Infection 06/29/2009 TIMOTHY OFFICE MACHINE TECHNICIAN, WOLF S 599.0 Urinary Tract Infection 06/29/2009 TIMOTHY OFFICE MACHINE TECHNICIAN, WOLF S 599.0 Urinary Tract Infection 06/29/2009 TIMOTHY OFFICE MACHINE TECHNICIAN, WOLF S 599.0 Urinary Tract Infection 06/29/2009 TIMOTHY OFFICE MACHINE TECHNICIAN, WOLF S 599.0 Urinary Tract Infection 06/29/2009 GAGANDEEP WILCOXS, MELISSA Raymundo 59 9.0 Urinary Tract Infection 06/29/2009 MARIA LUISA TAN DDS 59 9.0 Urinary Tract Infection 06/29/2009 HUSAM ORLANDO APRN 59 9.0 Urinary Tract Infection 06/29/2009 TIMOTHY OFFICE MACHINE TECHNICIAN, WOLF S 599.0 Urinary Tract Infection 06/29/2009 TIMOTHY OFFICE MACHINE TECHNICIAN, WOLF S 599.0 Urinary Tract Infection 06/29/2009 KADY MATTHEWS MD 599. 0 Urinary Tract Infection 06/29/2009 TIMOTHY OFFICE MACHINE TECHNICIAN, WOLF S 599.0 Urinary Tract Infection 06/29/2009 TIMOTHY OFFICE MACHINE TECHNICIAN, WOLF S 599.0 Urinary Tract Infection 06/29/2009 MARIA LUISA TAN DDS 59 9.0 Urinary Tract Infection 06/29/2009 MAX WILCOXS, KATHYA Chopra 599. 0 Urinary Tract Infection 08/15/2009 272.4 HYPE RLIPIDEMIA UNSPECIFIED 08/15/2009 272.4 HYPE RLIPIDEMIA UNSPECIFIED 08/15/2009 LJ WILCOXS, KAELA Rdz 27 2.4 HYPERLIPIDEMIA UNSPECIFIED 08/15/2009 HUSAM ORLANDO APRN 27 2.4 HYPERLIPIDEMIA UNSPECIFIED 08/15/2009 TIMOTHY OFFICE MACHINE TECHNICIAN, WOLF S 272.4 HYPERLIPIDEMIA UNSPECIFIED 08/15/2009 272.4 HYPE RLIPIDEMIA UNSPECIFIED 08/15/2009 MORAIMA NICOLE DO 272.4 HYPERLIPIDEMIA UNSPECIFIED 08/15/2009 272.4 HYPE RLIPIDEMIA UNSPECIFIED 08/15/2009 272.4 HYPE RLIPIDEMIA UNSPECIFIED 08/15/2009 272.4 HYPE RLIPIDEMIA UNSPECIFIED 08/15/2009 272.4 HYPE RLIPIDEMIA UNSPECIFIED 08/15/2009 NORMA WILCOXS, JUAREZ M 272.4 HYPERLIPIDEMIA UNSPECIFIED 08/15/2009 NORMA WILCOXS, JUAREZ Pierre 272.4 HYPERLIPIDEMIA UNSPECIFIED 08/15/2009 MORAIMA NICOLE DO K 272.4 HYPERLIPIDEMIA UNSPECIFIED 08/15/2009 TIMOTHY OFFICE MACHINE TECHNICIAN, WOLF S 272.4 HYPERLIPIDEMIA UNSPECIFIED 08/15/2009 TIMOTHY OFFICE MACHINE TECHNICIAN, WOLF S 272.4 HYPERLIPIDEMIA UNSPECIFIED 08/15/2009 TIMOTHY OFFICE MACHINE TECHNICIAN, WOLF S 272.4 HYPERLIPIDEMIA UNSPECIFIED 08/15/2009 TIMOTHY OFFICE MACHINE TECHNICIAN, WOLF S 272.4 HYPERLIPIDEMIA UNSPECIFIED 08/15/2009 TIMOTHYSTARLA GAINESN, WOLF S 272.4 HYPERLIPIDEMIA UNSPECIFIED 08/15/2009 MELISSA DONIS DDS 27 2.4 HYPERLIPIDEMIA UNSPECIFIED 08/15/2009 MARIA LUISA TAN DDS 27 2.4 HYPERLIPIDEMIA UNSPECIFIED 08/15/2009 HUSAM ORLANDO APRN 27 2.4 HYPERLIPIDEMIA UNSPECIFIED 08/15/2009 TIMOTHY GAINESN, WOLF S 272.4 HYPERLIPIDEMIA UNSPECIFIED 08/15/2009 TIMOTHY KAN, WOLF S 272.4 HYPERLIPIDEMIA UNSPECIFIED 08/15/2009 KADY MATTHEWS MD 272. 4 HYPERLIPIDEMIA UNSPECIFIED 08/15/2009 TIMOTHY GAINESN, WOLF S 272.4 HYPERLIPIDEMIA UNSPECIFIED 08/15/2009 TIMOTHY KAN, WOLF S 272.4 HYPERLIPIDEMIA UNSPECIFIED 08/15/2009 MARIA LUISA TAN DDS 27 2.4 HYPERLIPIDEMIA UNSPECIFIED 08/15/2009 KATHYA SANTANA DDS 272. 4 HYPERLIPIDEMIA UNSPECIFIED 08/26/2009 558.9 Tiffanie roenteritis Noninfectious 08/26/2009 558.9 Tiffanie roenteritis Noninfectious 08/26/2009 LJ MARTINES, KAELA Rdz 55 8.9 Gastroenteritis Noninfectious 08/26/2009 HUSAM ORLANDO APRN 55 8.9 Gastroenteritis Noninfectious 08/26/2009 YU AGUIRRE APRNA S 558.9 Gastroenteritis Noninfectious 08/26/2009 558.9 Tiffanie roenteritis Noninfectious 08/26/2009 MORAIMA NICOLE DO 558.9 Gastroenteritis Noninfectious 08/26/2009 558.9 Tiffanie roenteritis Noninfectious 08/26/2009 558.9 Tiffnaie roenteritis Noninfectious 08/26/2009 558.9 Tiffanie roenteritis Noninfectious 08/26/2009 558.9 Tiffanie roenteritis Noninfectious 08/26/2009 NORMA MARTINES, JUAREZ Pierre 558.9 Gastroenteritis Noninfectious 08/26/2009 NORMA WILCOXS, JUAREZ Pierre 558.9 Gastroenteritis Noninfectious 08/26/2009 MORAIMA NICOLE DO K 558.9 Gastroenteritis Noninfectious 08/26/2009 TIMOTHY KAN WOLF S 558.9 Gastroenteritis Noninfectious 08/26/2009 TIMOTHY KAN WOLF S 558.9 Gastroenteritis Noninfectious 08/26/2009 TIMOTHY KAN WOLF S 558.9 Gastroenteritis Noninfectious 08/26/2009 TIMOTHY KAN WOLF S 558.9 Gastroenteritis Noninfectious 08/26/2009 HAFSA AGUIRRE APRNNDA S 558.9 Gastroenteritis Noninfectious 08/26/2009 MELISSA DONIS DDS 55 8.9 Gastroenteritis Noninfectious 08/26/2009 MARIA LUISA TAN DDS 55 8.9 Gastroenteritis Noninfectious 08/26/2009 HUSAM ORLANDO APRN 55 8.9 Gastroenteritis Noninfectious 08/26/2009 TIMOTHY KAN WOLF S 558.9 Gastroenteritis Noninfectious 08/26/2009 TIMOTHY KAN WOLF S 558.9 Gastroenteritis Noninfectious 08/26/2009 KADY MATTHEWS MD 558. 9 Gastroenteritis Noninfectious 08/26/2009 TIMOTHY KAN WOLF S 558.9 Gastroenteritis Noninfectious 08/26/2009 TIMOTHY KAN WOLF S 558.9 Gastroenteritis Noninfectious 08/26/2009 MARIA LUISA TAN DDS 55 8.9 Gastroenteritis Noninfectious 08/26/2009 KATHYA SANTANA DDS 558. 9 Gastroenteritis Noninfectious 09/07/2009 300.00 Anx iety State, Unspecified 09/07/2009 V58.69 Med ication High Risk 09/07/2009 300.00 Anx iety State, Unspecified 09/07/2009 V58.69 Med ication High Risk 09/07/2009 LJ DDS, KAELA F 300.00 Anxiety State, Unspecified 09/07/2009 LJ DDS, KAELA F V58.69 Medication High Risk 09/07/2009 JOHANNY OFFICE MACHINE TECHNICIAN, HUSAM T 300.00 Anxiety State, Unspecified 09/07/2009 JOHANNY OFFICE MACHINE TECHNICIAN, HUSAM T V58.69 Medication High Risk 09/07/2009 TIMOTHY OFFICE MACHINE TECHNICIAN, WOLF S 300.00 Anxiety State, Unspecified 09/07/2009 TIMOTHY OFFICE MACHINE TECHNICIAN, WOLF S V58.69 Medication High Risk 09/07/2009 300.00 Anx iety State, Unspecified 09/07/2009 V58.69 Med ication High Risk 09/07/2009 NICOLE DO, MORAIMA K 300.00 Anxiety State, Unspecified 09/07/2009 NICOLE DO, MORAIMA K V58.69 Medication High Risk 09/07/2009 300.00 Anx iety State, Unspecified 09/07/2009 V58.69 Med ication High Risk 09/07/2009 300.00 Anx iety State, Unspecified 09/07/2009 V58.69 Med ication High Risk 09/07/2009 300.00 Anx iety State, Unspecified 09/07/2009 V58.69 Med ication High Risk 09/07/2009 300.00 Anx iety State, Unspecified 09/07/2009 V58.69 Med ication High Risk 09/07/2009 NORMA DDS, JUAREZ M 300.00 Anxiety State, Unspecified 09/07/2009 NORMA DDS, JUAREZ M V58.69 Medication High Risk 09/07/2009 NORMA DDS, JUAREZ M 300.00 Anxiety State, Unspecified 09/07/2009 NORMA DDS, JUAREZ M V58.69 Medication High Risk 09/07/2009 NICOLE DO, MORAIMA K 300.00 Anxiety State, Unspecified 09/07/2009 NICOLE DO, MORAIMA K V58.69 Medication High Risk 09/07/2009 TIMOTHY OFFICE MACHINE TECHNICIAN, WOLF S 300.00 Anxiety State, Unspecified 09/07/2009 TIMOTHY OFFICE MACHINE TECHNICIAN, WOLF S V58.69 Medication High Risk 09/07/2009 TIMOTHY OFFICE MACHINE TECHNICIAN, WOLF S 300.00 Anxiety State, Unspecified 09/07/2009 TIMOTHY OFFICE MACHINE TECHNICIAN, WOLF S V58.69 Medication High Risk 09/07/2009 TIMOTHY OFFICE MACHINE TECHNICIAN, WOLF S 300.00 Anxiety State, Unspecified 09/07/2009 TIMOTHY OFFICE MACHINE TECHNICIAN, WOLF S V58.69 Medication High Risk 09/07/2009 TIMOTHY OFFICE MACHINE TECHNICIAN, WOLF S 300.00 Anxiety State, Unspecified 09/07/2009 TIMOTHY OFFICE MACHINE TECHNICIAN, WOLF S V58.69 Medication High Risk 09/07/2009 TIMOTHY OFFICE MACHINE TECHNICIAN, WOLF S 300.00 Anxiety State, Unspecified 09/07/2009 TIMOTHY OFFICE MACHINE TECHNICIAN, WOLF S V58.69 Medication High Risk 09/07/2009 WHITE DDS, MELISSA J 300.00 Anxiety State, Unspecified 09/07/2009 WHITE DDS, MELISSA J V58.69 Medication High Risk 09/07/2009 TAN DDS, MARIA LUISA 300.00 Anxiety State, Unspecified 09/07/2009 TAN DDS, MARIA LUISA V58.69 Medication High Risk 09/07/2009 JOHANNY OFFICE MACHINE TECHNICIAN, HUSAM T 300.00 Anxiety State, Unspecified 09/07/2009 JOHANNY OFFICE MACHINE TECHNICIAN, HUSAM T V58.69 Medication High Risk 09/07/2009 TIMOTHY OFFICE MACHINE TECHNICIAN, WOLF S 300.00 Anxiety State, Unspecified 09/07/2009 TIMOTHY OFFICE MACHINE TECHNICIAN, WOLF S V58.69 Medication High Risk 09/07/2009 TIMOTHY OFFICE MACHINE TECHNICIAN, WOLF S 300.00 Anxiety State, Unspecified 09/07/2009 TIMOTHY OFFICE MACHINE TECHNICIAN, WOLF S V58.69 Medication High Risk 09/07/2009 CASSIE DOMINGUEZ, KADY Raymundo 300. 00 Anxiety State, Unspecified 09/07/2009 KADY MATTHEWS MD V58. 69 Medication High Risk 09/07/2009 TIMOTHY OFFICE MACHINE TECHNICIAN, WOLF S 300.00 Anxiety State, Unspecified 09/07/2009 TIMOTHY OFFICE MACHINE TECHNICIAN, WOLF S V58.69 Medication High Risk 09/07/2009 TIMOTHY OFFICE MACHINE TECHNICIAN, WOLF S 300.00 Anxiety State, Unspecified 09/07/2009 TIMOTHY OFFICE MACHINE TECHNICIAN, WOLF S V58.69 Medication High Risk 09/07/2009 TAN DDS, MARIA LUISA 300.00 Anxiety State, Unspecified 09/07/2009 TAN DDS, MARIA LUISA V58.69 Medication High Risk 09/07/2009 MAX DDS, KATHYA D 300. 00 Anxiety State, Unspecified 09/07/2009 MAX DDS, KATHYA D V58. 69 Medication High Risk 11/10/2009 719.41 Suze n In Joint, Shoulder Region 11/10/2009 719.41 Suze n In Joint, Shoulder Region 11/10/2009 LJ DDS, KAELA Rdz 719.41 Pain In Joint, Shoulder Region 11/10/2009 HUSAM ORLANDO APRN 719.41 Pain In Joint, Shoulder Region 11/10/2009 TIMOTHY KAN, WOLF S 719.41 Pain In Joint, Shoulder Region 11/10/2009 719.41 Suze n In Joint, Shoulder Region 11/10/2009 MORAIMA NICOLE DO K 719.41 Pain In Joint, Shoulder Region 11/10/2009 719.41 Suze n In Joint, Shoulder Region 11/10/2009 719.41 Suze n In Joint, Shoulder Region 11/10/2009 719.41 Suze n In Joint, Shoulder Region 11/10/2009 719.41 Suze n In Joint, Shoulder Region 11/10/2009 JUAREZ GREEN DDS 719.41 Pain In Joint, Shoulder Region 11/10/2009 NORMA WILCOXSJUAREZ 719.41 Pain In Joint, Shoulder Region 11/10/2009 MORAIMA NICOLE DO K 719.41 Pain In Joint, Shoulder Region 11/10/2009 TIMOTHY GAINESN, WOLF S 719.41 Pain In Joint, Shoulder Region 11/10/2009 TIMOTHY GAINESN, WOLF S 719.41 Pain In Joint, Shoulder Region 11/10/2009 TIMOTHY OFFICE MACHINE TECHNICIAN, WOLF S 719.41 Pain In Joint, Shoulder Region 11/10/2009 TIMOTHY OFFICE MACHINE TECHNICIAN, WOLF S 719.41 Pain In Joint, Shoulder Region 11/10/2009 TIMOTHY OFFICE MACHINE TECHNICIAN, WOLF S 719.41 Pain In Joint, Shoulder Region 11/10/2009 GAGANDEEP DDS, MELISSA Raymundo 719.41 Pain In Joint, Shoulder Region 11/10/2009 TAN DDS, MARIA LUISA 719.41 Pain In Joint, Shoulder Region 11/10/2009 HUSAM ORLANDO APRN 719.41 Pain In Joint, Shoulder Region 11/10/2009 HAFSA AGUIRRE APRNNDA S 719.41 Pain In Joint, Shoulder Region 11/10/2009 TIMOTHY KAN, WOLF S 719.41 Pain In Joint, Shoulder Region 11/10/2009 CASSIE DOMINGUEZ, KADY Raymundo 719. 41 Pain In Joint, Shoulder Region 11/10/2009 TIMOTHY KAN, WOLF S 719.41 Pain In Joint, Shoulder Region 11/10/2009 TIMOTHY KAN, WOLF S 719.41 Pain In Joint, Shoulder Region 11/10/2009 BRITNEY WILCOXS, MARIA LUISA 719.41 Pain In Joint, Shoulder Region 11/10/2009 MAX WILCOXS, KATHYA Chopra 719. 41 Pain In Joint, Shoulder Region 12/29/2009 311 DEPRES SIVE DISORDER, NOT ELSEWHERE CLASSIFIED 12/29/2009 564.1 Irri table Bowel Syndrome 12/29/2009 311 DEPRES SIVE DISORDER, NOT ELSEWHERE CLASSIFIED 12/29/2009 564.1 Irri table Bowel Syndrome 12/29/2009 LJ DDS, KAELA F 31 1 DEPRESSIVE DISORDER, NOT ELSEWHERE CLASSIFIED 12/29/2009 LJ DDS, KAELA F 56 4.1 Irritable Bowel Syndrome 12/29/2009 HUSAM ORLANDO APRN T 31 1 DEPRESSIVE DISORDER, NOT ELSEWHERE CLASSIFIED 12/29/2009 HUSAM ORLANDO APRN 56 4.1 Irritable Bowel Syndrome 12/29/2009 YU AGUIRRE APRNA S 311 DEPRESSIVE DISORDER, NOT ELSEWHERE CLASSIFIED 12/29/2009 HAFSA AGUIRRE APRNNDA S 564.1 Irritable Bowel Syndrome 12/29/2009 311 DEPRES SIVE DISORDER, NOT ELSEWHERE CLASSIFIED 12/29/2009 564.1 Irri table Bowel Syndrome 12/29/2009 MORAIMA NICOLE DO 311 DEPRESSIVE DISORDER, NOT ELSEWHERE CLASSIFIED 12/29/2009 MORAIMA NICOLE DO 564.1 Irritable Bowel Syndrome 12/29/2009 311 DEPRES SIVE DISORDER, NOT ELSEWHERE CLASSIFIED 12/29/2009 564.1 Irri table Bowel Syndrome 12/29/2009 311 DEPRES SIVE DISORDER, NOT ELSEWHERE CLASSIFIED 12/29/2009 564.1 Irri table Bowel Syndrome 12/29/2009 311 DEPRES SIVE DISORDER, NOT ELSEWHERE CLASSIFIED 12/29/2009 564.1 Irri table Bowel Syndrome 12/29/2009 311 DEPRES SIVE DISORDER, NOT ELSEWHERE CLASSIFIED 12/29/2009 564.1 Irri table Bowel Syndrome 12/29/2009 NORMA DDS, JUAREZ M 3 11 DEPRESSIVE DISORDER, NOT ELSEWHERE CLASSIFIED 12/29/2009 NORMA DDS, JUAREZ Pierre 564.1 Irritable Bowel Syndrome 12/29/2009 NORMA DDS, JUAREZ M 3 11 DEPRESSIVE DISORDER, NOT ELSEWHERE CLASSIFIED 12/29/2009 NORMA DDS, JUAREZ M 564.1 Irritable Bowel Syndrome 12/29/2009 NICOLE DO, MORAIMA K 311 DEPRESSIVE DISORDER, NOT ELSEWHERE CLASSIFIED 12/29/2009 NICOLE DO, MORAIMA K 564.1 Irritable Bowel Syndrome 12/29/2009 TIMOTHY OFFICE MACHINE TECHNICIAN, WOLF S 311 DEPRESSIVE DISORDER, NOT ELSEWHERE CLASSIFIED 12/29/2009 TIMOTHY OFFICE MACHINE TECHNICIAN, WOLF S 564.1 Irritable Bowel Syndrome 12/29/2009 TIMOTHY OFFICE MACHINE TECHNICIAN, WOLF S 311 DEPRESSIVE DISORDER, NOT ELSEWHERE CLASSIFIED 12/29/2009 TIMOTHY OFFICE MACHINE TECHNICIAN, WOLF S 564.1 Irritable Bowel Syndrome 12/29/2009 TIMOTHY OFFICE MACHINE TECHNICIAN, WOLF S 311 DEPRESSIVE DISORDER, NOT ELSEWHERE CLASSIFIED 12/29/2009 TIMOTHY OFFICE MACHINE TECHNICIAN, WOLF S 564.1 Irritable Bowel Syndrome 12/29/2009 TIMOTHY OFFICE MACHINE TECHNICIAN, WOLF S 311 DEPRESSIVE DISORDER, NOT ELSEWHERE CLASSIFIED 12/29/2009 TIMOTHY OFFICE MACHINE TECHNICIAN, WOLF S 564.1 Irritable Bowel Syndrome 12/29/2009 TIMOTHY OFFICE MACHINE TECHNICIAN, WOLF S 311 DEPRESSIVE DISORDER, NOT ELSEWHERE CLASSIFIED 12/29/2009 TIMOTHY OFFICE MACHINE TECHNICIAN, WOLF S 564.1 Irritable Bowel Syndrome 12/29/2009 WHITE DDS, MELISSA J 31 1 DEPRESSIVE DISORDER, NOT ELSEWHERE CLASSIFIED 12/29/2009 WHITE DDS, MELISSA J 56 4.1 Irritable Bowel Syndrome 12/29/2009 BRITNEY WILCOXSMARIA LUISA 31 1 DEPRESSIVE DISORDER, NOT ELSEWHERE CLASSIFIED 12/29/2009 BRITNEY WILCOXSMARIA LUISA 56 4.1 Irritable Bowel Syndrome 12/29/2009 HUSAM ORLANDO APRN 31 1 DEPRESSIVE DISORDER, NOT ELSEWHERE CLASSIFIED 12/29/2009 HUSAM ORLANDO APRN 56 4.1 Irritable Bowel Syndrome 12/29/2009 TIMOTHY KAN, WOLF S 311 DEPRESSIVE DISORDER, NOT ELSEWHERE CLASSIFIED 12/29/2009 TIMOTHY KAN, WOLF S 564.1 Irritable Bowel Syndrome 12/29/2009 TIMOTHY KAN WOLF S 311 DEPRESSIVE DISORDER, NOT ELSEWHERE CLASSIFIED 12/29/2009 TIMOTHY KAN, WOLF S 564.1 Irritable Bowel Syndrome 12/29/2009 CASSIE DOMINGUEZ, KADY Raymundo 311 DEPRESSIVE DISORDER, NOT ELSEWHERE CLASSIFIED 12/29/2009 CASSIE DOMINGUEZ, KADY Raymundo 564. 1 Irritable Bowel Syndrome 12/29/2009 TIMOTHY KAN, WOLF S 311 DEPRESSIVE DISORDER, NOT ELSEWHERE CLASSIFIED 12/29/2009 TIMOTHY KAN, WOLF S 564.1 Irritable Bowel Syndrome 12/29/2009 TIMOTHY KAN, WOLF S 311 DEPRESSIVE DISORDER, NOT ELSEWHERE CLASSIFIED 12/29/2009 TIMOTHY KAN, WOLF S 564.1 Irritable Bowel Syndrome 12/29/2009 BRITNEY WILCOXSMARIA LUISA 31 1 DEPRESSIVE DISORDER, NOT ELSEWHERE CLASSIFIED 12/29/2009 BRITNEY WILCOXSMARIA LUISA 56 4.1 Irritable Bowel Syndrome 12/29/2009 MAX WILCOXSKATHYA 311 DEPRESSIVE DISORDER, NOT ELSEWHERE CLASSIFIED 12/29/2009 MAX WILCOXS, KATHYA Chopra 564. 1 Irritable Bowel Syndrome 01/27/2010 427.89 Oth er Specified Cardiac Dysrhythmias 01/27/2010 787.02 [place] Alone 01/27/2010 427.89 Oth er Specified Cardiac Dysrhythmias 01/27/2010 787.02 [place] Alone 01/27/2010 LJ DDS, KAELA F 427.89 Other Specified Cardiac Dysrhythmias 01/27/2010 LJ DDS, KAELA F 787.02 Nausea Alone 01/27/2010 HUSAM ORLANDO APRN 427.89 Other Specified Cardiac Dysrhythmias 01/27/2010 HUSAM ORLANDO APRN 787.02 Nausea Alone 01/27/2010 TIMOTHY OFFICE MACHINE TECHNICIAN, WOLF S 427.89 Other Specified Cardiac Dysrhythmias 01/27/2010 TIMOTHY GAINESN, WOLF S 787.02 Nausea Alone 01/27/2010 427.89 Oth er Specified Cardiac Dysrhythmias 01/27/2010 787.02 [place] Alone 01/27/2010 BONNIE DOMORAIMA K 427.89 Other Specified Cardiac Dysrhythmias 01/27/2010 NICOLE DOMORAIMA K 787.02 Nausea Alone 01/27/2010 427.89 Oth er Specified Cardiac Dysrhythmias 01/27/2010 787.02 [place] Alone 01/27/2010 427.89 Oth er Specified Cardiac Dysrhythmias 01/27/2010 787.02 [place] Alone 01/27/2010 427.89 Oth er Specified Cardiac Dysrhythmias 01/27/2010 787.02 [place] Alone 01/27/2010 427.89 Oth er Specified Cardiac Dysrhythmias 01/27/2010 787.02 [place] Alone 01/27/2010 NORMA DDS, JUAREZ Pierre 427.89 Other Specified Cardiac Dysrhythmias 01/27/2010 NORMA DDSJUAREZ 787.02 Nausea Alone 01/27/2010 NORMA DDS, JUAREZ Pierre 427.89 Other Specified Cardiac Dysrhythmias 01/27/2010 NORMA DDS, JUAREZ Pierre 787.02 Nausea Alone 01/27/2010 BONNIE MORAIMA K 427.89 Other Specified Cardiac Dysrhythmias 01/27/2010 NICOLE DO MORAIMA K 787.02 Nausea Alone 01/27/2010 TIMOTHY GAINESN, WOLF S 427.89 Other Specified Cardiac Dysrhythmias 01/27/2010 TIMOTHY GAINESN, WOLF S 787.02 Nausea Alone 01/27/2010 TIMOTHY OFFICE MACHINE TECHNICIAN, WOLF S 427.89 Other Specified Cardiac Dysrhythmias 01/27/2010 TIMOTHY OFFICE MACHINE TECHNICIAN, WOLF S 787.02 Nausea Alone 01/27/2010 TIMOTHY OFFICE MACHINE TECHNICIAN, WOLF S 427.89 Other Specified Cardiac Dysrhythmias 01/27/2010 TIMOTHY OFFICE MACHINE TECHNICIAN, WOLF S 787.02 Nausea Alone 01/27/2010 TIMOTHY GAINESN, WOLF S 427.89 Other Specified Cardiac Dysrhythmias 01/27/2010 TIMOTHY KAN, WOLF S 787.02 Nausea Alone 01/27/2010 TIMOTHY KAN, WOLF S 427.89 Other Specified Cardiac Dysrhythmias 01/27/2010 TIMOTHY OFFICE MACHINE TECHNICIAN, WOLF S 787.02 Nausea Alone 01/27/2010 WHITE DDS, MELISSA Raymundo 427.89 Other Specified Cardiac Dysrhythmias 01/27/2010 WHITE DDS, MELISSA Raymundo 787.02 Nausea Alone 01/27/2010 TAN DDS, MARIA LUISA 427.89 Other Specified Cardiac Dysrhythmias 01/27/2010 TAN DDS, MARIA LUISA 787.02 Nausea Alone 01/27/2010 HUSAM ORLANDO APRN 427.89 Other Specified Cardiac Dysrhythmias 01/27/2010 HUSAM ORLANDO APRN 787.02 Nausea Alone 01/27/2010 TIMOTHY KAN WOLF S 427.89 Other Specified Cardiac Dysrhythmias 01/27/2010 HAFSA AGUIRRE APRNNDA S 787.02 Nausea Alone 01/27/2010 TIMOTHY KAN WOLF S 427.89 Other Specified Cardiac Dysrhythmias 01/27/2010 TIMOTHY KAN, WOLF S 787.02 Nausea Alone 01/27/2010 CASSIE DOMINGUEZ, KADY Raymundo 427. 89 Other Specified Cardiac Dysrhythmias 01/27/2010 CASSIE DOMINGUEZ, KADY Raymundo 787. 02 Nausea Alone 01/27/2010 TIMOTHY KAN, WOLF S 427.89 Other Specified Cardiac Dysrhythmias 01/27/2010 TIMOTHY KAN, WOLF S 787.02 Nausea Alone 01/27/2010 TIMOTHY KAN, WOLF S 427.89 Other Specified Cardiac Dysrhythmias 01/27/2010 TIMOTHY OFFICE MACHINE TECHNICIAN, WOLF S 787.02 Nausea Alone 01/27/2010 TAN DDS, MARIA LUISA 427.89 Other Specified Cardiac Dysrhythmias 01/27/2010 TAN DDS, MARIA LUISA 787.02 Nausea Alone 01/27/2010 MAX DDS, KATHYA Chopra 427. 89 Other Specified Cardiac Dysrhythmias 01/27/2010 MAX DDS, KATHYA Chopra 787. 02 Nausea Alone 02/03/2010 781.0 Abno rmal Involuntary Movements 02/03/2010 781.0 Abno rmal Involuntary Movements 02/03/2010 LJ DDS, KAELA F 78 1.0 Abnormal Involuntary Movements 02/03/2010 JOHANNY KAN, HUSAM T 78 1.0 Abnormal Involuntary Movements 02/03/2010 TIMOTHY OFFICE MACHINE TECHNICIAN, WOLF S 781.0 Abnormal Involuntary Movements 02/03/2010 781.0 Abno rmal Involuntary Movements 02/03/2010 NICOLE DO, MORAIMA K 781.0 Abnormal Involuntary Movements 02/03/2010 781.0 Abno rmal Involuntary Movements 02/03/2010 781.0 Abno rmal Involuntary Movements 02/03/2010 781.0 Abno rmal Involuntary Movements 02/03/2010 781.0 Abno rmal Involuntary Movements 02/03/2010 NORMA DDS, JUAREZ M 781.0 Abnormal Involuntary Movements 02/03/2010 NORMA DDS, JUAREZ M 781.0 Abnormal Involuntary Movements 02/03/2010 NICOLE DO, MORAIMA K 781.0 Abnormal Involuntary Movements 02/03/2010 TIMOTHY OFFICE MACHINE TECHNICIAN, WOLF S 781.0 Abnormal Involuntary Movements 02/03/2010 TIMOTHY OFFICE MACHINE TECHNICIAN, WOLF S 781.0 Abnormal Involuntary Movements 02/03/2010 TIMOTHY OFFICE MACHINE TECHNICIAN, WOLF S 781.0 Abnormal Involuntary Movements 02/03/2010 TIMOTHY OFFICE MACHINE TECHNICIAN, WOLF S 781.0 Abnormal Involuntary Movements 02/03/2010 TIMOTHY OFFICE MACHINE TECHNICIAN, WOLF S 781.0 Abnormal Involuntary Movements 02/03/2010 GAGANDEEP DDS, MELISSA J 78 1.0 Abnormal Involuntary Movements 02/03/2010 TAN DDS, MARIA LUISA 78 1.0 Abnormal Involuntary Movements 02/03/2010 HUSAM ORLANDO APRN T 78 1.0 Abnormal Involuntary Movements 02/03/2010 TIMOTHY OFFICE MACHINE TECHNICIAN, WOLF S 781.0 Abnormal Involuntary Movements 02/03/2010 TIMOTHY OFFICE MACHINE TECHNICIAN, WOLF S 781.0 Abnormal Involuntary Movements 02/03/2010 KADY MATTHEWS MD J 781. 0 Abnormal Involuntary Movements 02/03/2010 TIMOTHY OFFICE MACHINE TECHNICIAN, WOLF S 781.0 Abnormal Involuntary Movements 02/03/2010 WOLF AGUIRRE APRN S 781.0 Abnormal Involuntary Movements 02/03/2010 BRITNEY WILCOXS, MARIA LUISA 78 1.0 Abnormal Involuntary Movements 02/03/2010 MAX WILCOXS, KATHYA Chopra 781. 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 02/06/2010 WOLF AGUIRRE APRN S 780.52 Insomnia, Unspecified 02/06/2010 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 02/06/2010 780.52 Ins omnia, Unspecified 02/06/2010 NICOLE DOLILLIANA K 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 02/06/2010 NICOLE DO MORAIMA K 780.52 Insomnia, Unspecified 02/06/2010 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 02/06/2010 780.52 Ins omnia, Unspecified 02/06/2010 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 02/06/2010 780.52 Ins omnia, Unspecified 02/06/2010 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 02/06/2010 780.52 Ins omnia, Unspecified 02/06/2010 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 02/06/2010 780.52 Ins omnia, Unspecified 02/06/2010 JUAREZ GREEN DDS 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 02/06/2010 JUAREZ GREEN DDS 780.52 Insomnia, Unspecified 02/06/2010 NORMA WILCOXSJUAREZ 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 02/06/2010 NORMA WILCOXS, JUAREZ M 780.52 Insomnia, Unspecified 02/06/2010 NICOLE DO, MORAIMA K 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 02/06/2010 NICOLE DO, MORAIMA K 780.52 Insomnia, Unspecified 02/06/2010 TIMOTHY OFFICE MACHINE TECHNICIAN, WOLF S 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 02/06/2010 TIMOTHY OFFICE MACHINE TECHNICIAN, WOLF S 780.52 Insomnia, Unspecified 02/06/2010 TIMOTHY OFFICE MACHINE TECHNICIAN, WOLF S 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 02/06/2010 TIMOTHY OFFICE MACHINE TECHNICIAN, WOLF S 780.52 Insomnia, Unspecified 02/06/2010 TIMOTHY OFFICE MACHINE TECHNICIAN, WOLF S 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 02/06/2010 TIMOTHY OFFICE MACHINE TECHNICIAN, WOLF S 780.52 Insomnia, Unspecified 02/06/2010 TIMOTHY OFFICE MACHINE TECHNICIAN, WOLF S 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 02/06/2010 TIMOTHY OFFICE MACHINE TECHNICIAN, WOLF S 780.52 Insomnia, Unspecified 02/06/2010 TIMOTHY OFFICE MACHINE TECHNICIAN, WOLF S 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 02/06/2010 TIMOTHY OFFICE MACHINE TECHNICIAN, WOLF S 780.52 Insomnia, Unspecified 02/06/2010 MELISSA DONIS DDS 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 02/06/2010 MELISSA DONIS DDS 780.52 Insomnia, Unspecified 02/06/2010 TAN DDSMARIA LUISA 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 02/06/2010 MARIA LUISA TAN DDS 780.52 Insomnia, Unspecified 02/06/2010 HUSAM ORLANDO APRN 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 02/06/2010 KADY MATTHEWS MD 780. 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 02/06/2010 MAX DDS, KATHYA D 780. 52 Insomnia, Unspecified 04/18/2010 616.10 Vag initis And Vulvovaginitis, Unspecified 04/18/2010 788.1 Dysuria 04/18/2010 V72.31 Rou komal Gynecological Examination 04/18/2010 616.10 Vag initis And Vulvovaginitis, Unspecified 04/18/2010 788.1 Dysuria 04/18/2010 V72.31 Rou komal Gynecological Examination 04/18/2010 LJ DDS, KAELA F 616.10 Vaginitis And Vulvovaginitis, Unspecified 04/18/2010 LJ DDS, KAELA F 78 8.1 Dysuria 04/18/2010 JL DDS, KAELA F V72.31 Routine Gynecological Examination 04/18/2010 HUSAM ORLANDO APRN 616.10 Vaginitis And Vulvovaginitis, Unspecified 04/18/2010 HUSAM ORLANDO APRN 78 8.1 Dysuria 04/18/2010 HUSAM ORLANDO APRN V72.31 Routine Gynecological Examination 04/18/2010 WOLF AGUIRRE APRN S 616.10 Vaginitis And Vulvovaginitis, Unspecified 04/18/2010 WOLF AGUIRRE APRN S 788.1 Dysuria 04/18/2010 WOLF AGUIRRE APRN S V72.31 Routine Gynecological Examination 04/18/2010 616.10 Vag initis And Vulvovaginitis, Unspecified 04/18/2010 788.1 Dysuria 04/18/2010 V72.31 Rou komal Gynecological Examination 04/18/2010 NICOLE DO MORAIMA K 616.10 Vaginitis And Vulvovaginitis, Unspecified 04/18/2010 NICOLE DO MORAIMA K 788.1 Dysuria 04/18/2010 NICOLE DO MORAIMA K V72.31 Routine Gynecological Examination 04/18/2010 616.10 Vag initis And Vulvovaginitis, Unspecified 04/18/2010 788.1 Dysuria 04/18/2010 V72.31 Rou komal Gynecological Examination 04/18/2010 616.10 Vag initis And Vulvovaginitis, Unspecified 04/18/2010 788.1 Dysuria 04/18/2010 V72.31 Rou komal Gynecological Examination 04/18/2010 616.10 Vag initis And Vulvovaginitis, Unspecified 04/18/2010 788.1 Dysuria 04/18/2010 V72.31 Rou komal Gynecological Examination 04/18/2010 616.10 Vag initis And Vulvovaginitis, Unspecified 04/18/2010 788.1 Dysuria 04/18/2010 V72.31 Rou komal Gynecological Examination 04/18/2010 NORMA MARTINES, JUAREZ Pierre 616.10 Vaginitis And Vulvovaginitis, Unspecified 04/18/2010 NORMA WILCOXS, JUAREZ Pierre 788.1 Dysuria 04/18/2010 NORMA MARTINES, JUAREZ Pierre V72.31 Routine Gynecological Examination 04/18/2010 NORMA MARTINES, JUAREZ Pierre 616.10 Vaginitis And Vulvovaginitis, Unspecified 04/18/2010 NORMA WILCOXS, JUAREZ Pierre 788.1 Dysuria 04/18/2010 JUAREZ GREEN DDS V72.31 Routine Gynecological Examination 04/18/2010 NICOLE DO, MORAIMA K 616.10 Vaginitis And Vulvovaginitis, Unspecified 04/18/2010 NICOLE DO, MORAIMA K 788.1 Dysuria 04/18/2010 NICOLE DO, MORAIMA K V72.31 Routine Gynecological Examination 04/18/2010 TIMOTHY OFFICE MACHINE TECHNICIAN, WOLF S 616.10 Vaginitis And Vulvovaginitis, Unspecified 04/18/2010 TIMOTHY OFFICE MACHINE TECHNICIAN, WOLF S 788.1 Dysuria 04/18/2010 TIMOTHY OFFICE MACHINE TECHNICIAN, WOLF S V72.31 Routine Gynecological Examination 04/18/2010 TIMOTHY OFFICE MACHINE TECHNICIAN, WOLF S 616.10 Vaginitis And Vulvovaginitis, Unspecified 04/18/2010 TIMOTHY OFFICE MACHINE TECHNICIAN, WOLF S 788.1 Dysuria 04/18/2010 TIMOTHY OFFICE MACHINE TECHNICIAN, WOLF S V72.31 Routine Gynecological Examination 04/18/2010 TIMOTHY OFFICE MACHINE TECHNICIAN, WOLF S 616.10 Vaginitis And Vulvovaginitis, Unspecified 04/18/2010 TIMOTHY OFFICE MACHINE TECHNICIAN, WOLF S 788.1 Dysuria 04/18/2010 TIMOTHY OFFICE MACHINE TECHNICIAN, WOLF S V72.31 Routine Gynecological Examination 04/18/2010 TIMOTHY OFFICE MACHINE TECHNICIAN, WOLF S 616.10 Vaginitis And Vulvovaginitis, Unspecified 04/18/2010 TIMOTHY OFFICE MACHINE TECHNICIAN, WOLF S 788.1 Dysuria 04/18/2010 TIMOTHY OFFICE MACHINE TECHNICIAN, WOLF S V72.31 Routine Gynecological Examination 04/18/2010 TIMOTHY OFFICE MACHINE TECHNICIAN, WOLF S 616.10 Vaginitis And Vulvovaginitis, Unspecified 04/18/2010 TIMOTHY OFFICE MACHINE TECHNICIAN, WOLF S 788.1 Dysuria 04/18/2010 TIMOTHY OFFICE MACHINE TECHNICIAN, WOLF S V72.31 Routine Gynecological Examination 04/18/2010 MELISSA DONIS DDS 616.10 Vaginitis And Vulvovaginitis, Unspecified 04/18/2010 MELISSA DONIS DDS 78 8.1 Dysuria 04/18/2010 MELISSA DONIS DDS V72.31 Routine Gynecological Examination 04/18/2010 TAN DDS, MARIA LUISA 616.10 Vaginitis And Vulvovaginitis, Unspecified 04/18/2010 TAN DDS, MARIA LUISA 78 8.1 Dysuria 04/18/2010 TAN DDS, MARIA LUISA V72.31 Routine Gynecological Examination 04/18/2010 HUSAM ORLANDO APRN 616.10 Vaginitis And Vulvovaginitis, Unspecified 04/18/2010 HUSAM ORLANDO APRN 78 8.1 Dysuria 04/18/2010 HUSAM ORLANDO APRN V72.31 Routine Gynecological Examination 04/18/2010 TIMOTHY OFFICE MACHINE TECHNICIAN, WOLF S 616.10 Vaginitis And Vulvovaginitis, Unspecified 04/18/2010 TIMOTHY OFFICE MACHINE TECHNICIAN, WOLF S 788.1 Dysuria 04/18/2010 TIMOTHY OFFICE MACHINE TECHNICIAN, WOLF S V72.31 Routine Gynecological Examination 04/18/2010 TIMOTHY KAN, WOLF S 616.10 Vaginitis And Vulvovaginitis, Unspecified 04/18/2010 TIMOTHY OFFICE MACHINE TECHNICIAN, WOLF S 788.1 Dysuria 04/18/2010 TIMOTHY KAN, WOLF S V72.31 Routine Gynecological Examination 04/18/2010 CASSIE DOMINGUEZ, KADY Raymundo 616. 10 Vaginitis And Vulvovaginitis, Unspecified 04/18/2010 CASSIE DOMINGUEZ, KADY Raymundo 788. 1 Dysuria 04/18/2010 CASSIE DOMINGUEZ, KADY Raymundo V72. 31 Routine Gynecological Examination 04/18/2010 TIMOTHY OFFICE MACHINE TECHNICIAN, WOLF S 616.10 Vaginitis And Vulvovaginitis, Unspecified 04/18/2010 TIMOTHY OFFICE MACHINE TECHNICIAN, WOLF S 788.1 Dysuria 04/18/2010 TIMOTHY OFFICE MACHINE TECHNICIAN, WOLF S V72.31 Routine Gynecological Examination 04/18/2010 TIMOTHY OFFICE MACHINE TECHNICIAN, WOLF S 616.10 Vaginitis And Vulvovaginitis, Unspecified 04/18/2010 TIMOTHY OFFICE MACHINE TECHNICIAN, WOLF S 788.1 Dysuria 04/18/2010 TIMOTHY OFFICE MACHINE TECHNICIAN, WOLF S V72.31 Routine Gynecological Examination 04/18/2010 BRITNEY WILCOXS, MARIA LUISA 616.10 Vaginitis And Vulvovaginitis, Unspecified 04/18/2010 TAN JERIS, MARIA LUISA 78 8.1 Dysuria 04/18/2010 TAN JERIS, MARIA LUISA V72.31 Routine Gynecological Examination 04/18/2010 MAX WILCOXSKATHYA 616. 10 Vaginitis And Vulvovaginitis, Unspecified 04/18/2010 MAX JERIS, KATHYA Chopra 788. 1 Dysuria 04/18/2010 MAX DDS, KATHYA Chopra V72. 31 Routine Gynecological Examination 08/22/2010 461.9 Sinu sitis Acute 08/22/2010 536.8 Dysp epsia And Other Specified Disorders Of Function Of Stomach 08/22/2010 461.9 Sinu sitis Acute 08/22/2010 536.8 Dysp epsia And Other Specified Disorders Of Function Of Stomach 08/22/2010 KAELA CALHOUN DDS F 46 1.9 Sinusitis Acute 08/22/2010 LJ MARTINES, KAELA F 53 6.8 Dyspepsia And Other Specified Disorders Of Function Of Stomach 08/22/2010 HUSAM ORLANDO APRN 46 1.9 Sinusitis Acute 08/22/2010 HUSAM ORLANDO APRN 53 6.8 Dyspepsia And Other Specified Disorders Of Function Of Stomach 08/22/2010 WOLF AGUIRRE APRN S 461.9 Sinusitis Acute 08/22/2010 WOLF AGUIRRE APRN S 536.8 Dyspepsia And Other Specified Disorders Of Function Of Stomach 08/22/2010 461.9 Sinu sitis Acute 08/22/2010 536.8 Dysp epsia And Other Specified Disorders Of Function Of Stomach 08/22/2010 NICOLE MORAIMA LOCKETT K 461.9 Sinusitis Acute 08/22/2010 NICOLE MORAIMA LOCKETT K 536.8 Dyspepsia And Other Specified Disorders Of Function Of Stomach 08/22/2010 461.9 Sinu sitis Acute 08/22/2010 536.8 Dysp epsia And Other Specified Disorders Of Function Of Stomach 08/22/2010 461.9 Sinu sitis Acute 08/22/2010 536.8 Dysp epsia And Other Specified Disorders Of Function Of Stomach 08/22/2010 461.9 Sinu sitis Acute 08/22/2010 536.8 Dysp epsia And Other Specified Disorders Of Function Of Stomach 08/22/2010 461.9 Sinu sitis Acute 08/22/2010 536.8 Dysp epsia And Other Specified Disorders Of Function Of Stomach 08/22/2010 NORMA DDS, JUAREZ Pierre 461.9 Sinusitis Acute 08/22/2010 NORMA DDS, JUAREZ Pierre 536.8 Dyspepsia And Other Specified Disorders Of Function Of Stomach 08/22/2010 NORMA DDS, JUAREZ Pierre 461.9 Sinusitis Acute 08/22/2010 NORMA DDS, JUAREZ Pierre 536.8 Dyspepsia And Other Specified Disorders Of Function Of Stomach 08/22/2010 NICOLE DO, MORAIMA K 461.9 Sinusitis Acute 08/22/2010 NICOLE DO, MORAIMA K 536.8 Dyspepsia And Other Specified Disorders Of Function Of Stomach 08/22/2010 TIMOTHY OFFICE MACHINE TECHNICIAN, WOLF S 461.9 Sinusitis Acute 08/22/2010 TIMOTHY OFFICE MACHINE TECHNICIAN, WOLF S 536.8 Dyspepsia And Other Specified Disorders Of Function Of Stomach 08/22/2010 TIMOTHY OFFICE MACHINE TECHNICIAN, WOLF S 461.9 Sinusitis Acute 08/22/2010 TIMOTHY OFFICE MACHINE TECHNICIAN, WOLF S 536.8 Dyspepsia And Other Specified Disorders Of Function Of Stomach 08/22/2010 TIMOTHY OFFICE MACHINE TECHNICIAN, WOLF S 461.9 Sinusitis Acute 08/22/2010 TIMOTHY OFFICE MACHINE TECHNICIAN, WOLF S 536.8 Dyspepsia And Other Specified Disorders Of Function Of Stomach 08/22/2010 TIMOTHY OFFICE MACHINE TECHNICIAN, WOLF S 461.9 Sinusitis Acute 08/22/2010 TIMOTHY OFFICE MACHINE TECHNICIAN, WOLF S 536.8 Dyspepsia And Other Specified Disorders Of Function Of Stomach 08/22/2010 TIMOTHY OFFICE MACHINE TECHNICIAN, WOLF S 461.9 Sinusitis Acute 08/22/2010 TIMOTHY OFFICE MACHINE TECHNICIAN, WOLF S 536.8 Dyspepsia And Other Specified Disorders Of Function Of Stomach 08/22/2010 MELISSA DONIS DDS 46 1.9 Sinusitis Acute 08/22/2010 MELISSA DONIS DDS 53 6.8 Dyspepsia And Other Specified Disorders Of Function Of Stomach 08/22/2010 MARIA LUISA TAN DDS 46 1.9 Sinusitis Acute 08/22/2010 MARIA LUISA TAN DDS 53 6.8 Dyspepsia And Other Specified Disorders Of Function Of Stomach 08/22/2010 HUSAM ORLANDO APRN 46 1.9 Sinusitis Acute 08/22/2010 HUSAM ORLANDO APRN 53 6.8 Dyspepsia And Other Specified Disorders Of Function Of Stomach 08/22/2010 TIMOTHYSTARLA KAN, WOLF S 461.9 Sinusitis Acute 08/22/2010 TIMOTHYSTARLA GAINESN, WOLF S 536.8 Dyspepsia And Other Specified Disorders Of Function Of Stomach 08/22/2010 TIMOTHYSTARLA GAINESN, WOLF S 461.9 Sinusitis Acute 08/22/2010 TIMOTHY OFFICE MACHINE TECHNICIAN, WOLF S 536.8 Dyspepsia And Other Specified Disorders Of Function Of Stomach 08/22/2010 KADY MATTHEWS MD 461. 9 Sinusitis Acute 08/22/2010 KADY MATTHEWS MD 536. 8 Dyspepsia And Other Specified Disorders Of Function Of Stomach 08/22/2010 TIMOTHY OFFICE MACHINE TECHNICIAN, WOLF S 461.9 Sinusitis Acute 08/22/2010 TIMOTHYSTARLA KAN, WOLF S 536.8 Dyspepsia And Other Specified Disorders Of Function Of Stomach 08/22/2010 TIMOTHYSTARLA KAN, WOLF S 461.9 Sinusitis Acute 08/22/2010 TIMOTHYSTARLA KAN, WOLF S 536.8 Dyspepsia And Other Specified Disorders Of Function Of Stomach 08/22/2010 MARIA LUISA TAN DDS 46 1.9 Sinusitis Acute 08/22/2010 MARIA LUISA TAN DDS 53 6.8 Dyspepsia And Other Specified Disorders Of Function Of Stomach 08/22/2010 KATHYA SANTANA DDS 461. 9 Sinusitis Acute 08/22/2010 KATHYA SANTANA DDS 536. 8 Dyspepsia And Other Specified Disorders Of Function Of Stomach 10/24/2010 466.0 Acut e Bronchitis 10/24/2010 466.0 Acut e Bronchitis 10/24/2010 LJ WILCOXS, KAELA F 46 6.0 Acute Bronchitis 10/24/2010 HUSAM ORLANDO APRN T 46 6.0 Acute Bronchitis 10/24/2010 TIMOTHY OFFICE MACHINE TECHNICIAN, WOLF S 466.0 Acute Bronchitis 10/24/2010 466.0 Acut e Bronchitis 10/24/2010 NICOLE DO, MORAIMA K 466.0 Acute Bronchitis 10/24/2010 466.0 Acut e Bronchitis 10/24/2010 466.0 Acut e Bronchitis 10/24/2010 466.0 Acut e Bronchitis 10/24/2010 466.0 Acut e Bronchitis 10/24/2010 NORMA DDS, JUAREZ M 466.0 Acute Bronchitis 10/24/2010 NORMA DDS, JUAREZ M 466.0 Acute Bronchitis 10/24/2010 NCIOLE DO, MORAIMA K 466.0 Acute Bronchitis 10/24/2010 TIMOTHY OFFICE MACHINE TECHNICIAN, WOLF S 466.0 Acute Bronchitis 10/24/2010 TIMOTHY OFFICE MACHINE TECHNICIAN, WOLF S 466.0 Acute Bronchitis 10/24/2010 TIMOTHY OFFICE MACHINE TECHNICIAN, WOLF S 466.0 Acute Bronchitis 10/24/2010 TIMOTHY OFFICE MACHINE TECHNICIAN, WOLF S 466.0 Acute Bronchitis 10/24/2010 TIMOTHY OFFICE MACHINE TECHNICIAN, WOLF S 466.0 Acute Bronchitis 10/24/2010 GAGANDEEP WILCOXS, MELISSA J 46 6.0 Acute Bronchitis 10/24/2010 BRITNEY WILCOXS, MARIA LUISA 46 6.0 Acute Bronchitis 10/24/2010 HUSAM ORLANDO APRN 46 6.0 Acute Bronchitis 10/24/2010 TIMOTHY OFFICE MACHINE TECHNICIAN, WOLF S 466.0 Acute Bronchitis 10/24/2010 TIMOTHY OFFICE MACHINE TECHNICIAN, WOLF S 466.0 Acute Bronchitis 10/24/2010 KADY MATTHEWS MD 466. 0 Acute Bronchitis 10/24/2010 TIMOTHY OFFICE MACHINE TECHNICIAN, WOLF S 466.0 Acute Bronchitis 10/24/2010 TIMOTHY OFFICE MACHINE TECHNICIAN, WOLF S 466.0 Acute Bronchitis 10/24/2010 BRITNEY WILCOXS, MARIA LUISA 46 6.0 Acute Bronchitis 10/24/2010 MAX WILCOXS, KATHYA Chopra 466. 0 Acute Bronchitis 12/05/2010 826.0 Clos ed Fracture Of One Or More Phalanges Of Foot 12/05/2010 826.0 Clos ed Fracture Of One Or More Phalanges Of Foot 12/05/2010 LJ WILCOXS, KAELA F 82 6.0 Closed Fracture Of One Or More Phalanges Of Foot 12/05/2010 HUSAM ORLANDO APRN 82 6.0 Closed Fracture Of One Or More Phalanges Of Foot 12/05/2010 TIMOTHY OFFICE MACHINE TECHNICIAN, WOLF S 826.0 Closed Fracture Of One Or More Phalanges Of Foot 12/05/2010 826.0 Clos ed Fracture Of One Or More Phalanges Of Foot 12/05/2010 MORAIMA NICOLE DO K 826.0 Closed Fracture Of One Or More Phalanges Of Foot 12/05/2010 826.0 Clos ed Fracture Of One Or More Phalanges Of Foot 12/05/2010 826.0 Clos ed Fracture Of One Or More Phalanges Of Foot 12/05/2010 826.0 Clos ed Fracture Of One Or More Phalanges Of Foot 12/05/2010 826.0 Clos ed Fracture Of One Or More Phalanges Of Foot 12/05/2010 JUAREZ GREEN DDS 826.0 Closed Fracture Of One Or More Phalanges Of Foot 12/05/2010 JUAREZ GREEN DDS 826.0 Closed Fracture Of One Or More Phalanges Of Foot 12/05/2010 MORAIMA NICOLE DO K 826.0 Closed Fracture Of One Or More Phalanges Of Foot 12/05/2010 TIMOTHY OFFICE MACHINE TECHNICIAN, WOLF S 826.0 Closed Fracture Of One Or More Phalanges Of Foot 12/05/2010 TIMOTHY OFFICE MACHINE TECHNICIAN, WOLF S 826.0 Closed Fracture Of One Or More Phalanges Of Foot 12/05/2010 TIMOTHY OFFICE MACHINE TECHNICIAN, WOLF S 826.0 Closed Fracture Of One Or More Phalanges Of Foot 12/05/2010 TIMOTHY OFFICE MACHINE TECHNICIAN, WOLF S 826.0 Closed Fracture Of One Or More Phalanges Of Foot 12/05/2010 TIMOTHY OFFICE MACHINE TECHNICIAN, WOLF S 826.0 Closed Fracture Of One Or More Phalanges Of Foot 12/05/2010 GAGANDEEP WILCOXS, MELISSA Raymundo 82 6.0 Closed Fracture Of One Or More Phalanges Of Foot 12/05/2010 BRITNEY WILCOXSMARIA LUISA 82 6.0 Closed Fracture Of One Or More Phalanges Of Foot 12/05/2010 HUSAM ORLANDO APRN 82 6.0 Closed Fracture Of One Or More Phalanges Of Foot 12/05/2010 TIMOTHY OFFICE MACHINE TECHNICIAN, WOLF S 826.0 Closed Fracture Of One Or More Phalanges Of Foot 12/05/2010 TIMOTHY OFFICE MACHINE TECHNICIAN, WOLF S 826.0 Closed Fracture Of One Or More Phalanges Of Foot 12/05/2010 CASSIE DOMINGUEZ, KADY Raymundo 826. 0 Closed Fracture Of One Or More Phalanges Of Foot 12/05/2010 TIMOTHY OFFICE MACHINE TECHNICIAN, WOLF S 826.0 Closed Fracture Of One Or More Phalanges Of Foot 12/05/2010 TIMOTHY OFFICE MACHINE TECHNICIAN, WOLF S 826.0 Closed Fracture Of One Or More Phalanges Of Foot 12/05/2010 BRITNEY WILCOXS, MARIA LUISA 82 6.0 Closed Fracture Of One Or More Phalanges Of Foot 12/05/2010 MAX DDS, KATHYA Chopra 826. 0 Closed Fracture Of One Or More Phalanges Of Foot 11/03/2011 465.9 Uppe r Respiratory Infection 11/03/2011 465.9 Uppe r Respiratory Infection 11/03/2011 LJ DDS, KAELA F 46 5.9 Upper Respiratory Infection 11/03/2011 HUSAM ORLANDO APRN T 46 5.9 Upper Respiratory Infection 11/03/2011 TIMOTHY KAN, WOLF S 465.9 Upper Respiratory Infection 11/03/2011 465.9 Uppe r Respiratory Infection 11/03/2011 MORAIMA NICOLE DO 465.9 Upper Respiratory Infection 11/03/2011 465.9 Uppe r Respiratory Infection 11/03/2011 465.9 Uppe r Respiratory Infection 11/03/2011 465.9 Uppe r Respiratory Infection 11/03/2011 465.9 Uppe r Respiratory Infection 11/03/2011 JUAREZ GREEN DDS 465.9 Upper Respiratory Infection 11/03/2011 JUAREZ GREEN DDS 465.9 Upper Respiratory Infection 11/03/2011 MORAIMA NICOLE DO 465.9 Upper Respiratory Infection 11/03/2011 TIMOTHY OFFICE MACHINE TECHNICIAN, WOLF S 465.9 Upper Respiratory Infection 11/03/2011 TIMOTHY OFFICE MACHINE TECHNICIAN, WOLF S 465.9 Upper Respiratory Infection 11/03/2011 TIMOTHY OFFICE MACHINE TECHNICIAN, WOLF S 465.9 Upper Respiratory Infection 11/03/2011 TIMOTHY OFFICE MACHINE TECHNICIAN, WOLF S 465.9 Upper Respiratory Infection 11/03/2011 TIMOTHY OFFICE MACHINE TECHNICIAN, WOLF S 465.9 Upper Respiratory Infection 11/03/2011 GAGANDEEP WILCOXS, MELISSA Raymundo 46 5.9 Upper Respiratory Infection 11/03/2011 MARIA LUISA TAN DDS 46 5.9 Upper Respiratory Infection 11/03/2011 HUSAM ORLANDO APRN 46 5.9 Upper Respiratory Infection 11/03/2011 TIMOTHY OFFICE MACHINE TECHNICIAN, WOLF S 465.9 Upper Respiratory Infection 11/03/2011 TIMOTHY OFFICE MACHINE TECHNICIAN, WOLF S 465.9 Upper Respiratory Infection 11/03/2011 CASSIE DOMINGUEZ, KADY Raymundo 465. 9 Upper Respiratory Infection 11/03/2011 TIMOTHY OFFICE MACHINE TECHNICIAN, WOLF S 465.9 Upper Respiratory Infection 11/03/2011 TIMOTHY OFFICE MACHINE TECHNICIAN, WOLF S 465.9 Upper Respiratory Infection 11/03/2011 MARIA LUISA TAN DDS 46 5.9 Upper Respiratory Infection 11/03/2011 MAX WILCOXS, KATHYA Chopra 465. 9 Upper Respiratory Infection 11/28/2011 V04.81 FLU DX (MEDICARE ONLY) 11/28/2011 V04.81 FLU DX (MEDICARE ONLY) 11/28/2011 LJ MARTINES, KAELA Rdz V04.81 [...] V04.81 FLU DX (MEDICARE ONLY) 11/28/2011 TIMOTHY OFFICE MACHINE TECHNICIAN, WOLF S V04.81 FLU DX (MEDICARE ONLY) 11/28/2011 TIMOTHY OFFICE MACHINE TECHNICIAN, WOLF S V04.81 FLU DX (MEDICARE ONLY) 11/28/2011 TIMOTHY OFFICE MACHINE TECHNICIAN, WOLF S V04.81 FLU DX (MEDICARE ONLY) 11/28/2011 TIMOTHY OFFICE MACHINE TECHNICIAN, WOLF S V04.81 FLU DX (MEDICARE ONLY) 11/28/2011 TIMOTHY OFFICE MACHINE TECHNICIAN, WOLF S V04.81 FLU DX (MEDICARE ONLY) 11/28/2011 MELISSA DONIS DDS V04.81 FLU DX (MEDICARE ONLY) 11/28/2011 MARIA LUISA TAN DDS V04.81 FLU DX (MEDICARE ONLY) 11/28/2011 HUSAM ORLANDO APRN V04.81 FLU DX (MEDICARE ONLY) 11/28/2011 TIMOTHY OFFICE MACHINE TECHNICIAN, WOLF S V04.81 FLU DX (MEDICARE ONLY) 11/28/2011 TIMOTHY OFFICE MACHINE TECHNICIAN, WOLF S V04.81 FLU DX (MEDICARE ONLY) 11/28/2011 KADY MATTHEWS MD V04. 81 FLU DX (MEDICARE ONLY) 11/28/2011 TIMOTHY OFFICE MACHINE TECHNICIAN, WOLF S V04.81 FLU DX (MEDICARE ONLY) 11/28/2011 TIMOTHY OFFICE MACHINE TECHNICIAN, WOLF S V04.81 FLU DX (MEDICARE ONLY) 11/28/2011 MARIA LUISA TAN DDS V04.81 FLU DX (MEDICARE ONLY) 11/28/2011 KATHYA SANTANA DDS V04. 81 FLU DX (MEDICARE ONLY) 02/21/2012 427.9 CARD IAC DYSRHYTHMIA UNSPECIFIED 02/21/2012 788.1 DYSURIA 02/21/2012 427.9 CARD IAC DYSRHYTHMIA UNSPECIFIED 02/21/2012 788.1 DYSURIA 02/21/2012 KAELA CALHOUN DDS F 42 7.9 CARDIAC DYSRHYTHMIA UNSPECIFIED 02/21/2012 KAELA CALHOUN DDS F 78 8.1 DYSURIA 02/21/2012 HUSAM ORLANDO APRN 42 7.9 CARDIAC DYSRHYTHMIA UNSPECIFIED 02/21/2012 HUSAM ORLANDO APRN 78 8.1 DYSURIA 02/21/2012 TIMOTHY KAN, WOLF S 427.9 CARDIAC DYSRHYTHMIA UNSPECIFIED 02/21/2012 TIMOTHY KAN, WOLF S 788.1 DYSURIA 02/21/2012 427.9 CARD IAC DYSRHYTHMIA UNSPECIFIED 02/21/2012 788.1 DYSURIA 02/21/2012 NICOLE DO, MORAIMA K 427.9 CARDIAC DYSRHYTHMIA UNSPECIFIED 02/21/2012 NICOLE DO, MORAIMA K 788.1 DYSURIA 02/21/2012 427.9 CARD IAC DYSRHYTHMIA UNSPECIFIED 02/21/2012 788.1 DYSURIA 02/21/2012 427.9 CARD IAC DYSRHYTHMIA UNSPECIFIED 02/21/2012 788.1 DYSURIA 02/21/2012 427.9 CARD IAC DYSRHYTHMIA UNSPECIFIED 02/21/2012 788.1 DYSURIA 02/21/2012 427.9 CARD IAC DYSRHYTHMIA UNSPECIFIED 02/21/2012 788.1 DYSURIA 02/21/2012 NORMA DDJUAREZ Hoff M 427.9 CARDIAC DYSRHYTHMIA UNSPECIFIED 02/21/2012 NORMA JUAREZ MARTINES 788.1 DYSURIA 02/21/2012 JUAREZ GREEN DDS M 427.9 CARDIAC DYSRHYTHMIA UNSPECIFIED 02/21/2012 JUAREZ GREEN DDS 788.1 DYSURIA 02/21/2012 NICOLE DO MORAIMA K 427.9 CARDIAC DYSRHYTHMIA UNSPECIFIED 02/21/2012 NICOLE DO MORAIMA K 788.1 DYSURIA 02/21/2012 HAFSA AGUIRRE APRNNDA S 427.9 CARDIAC DYSRHYTHMIA UNSPECIFIED 02/21/2012 TIMOTHY KAN WOLF S 788.1 DYSURIA 02/21/2012 TIMOTHY KAN, WOLF S 427.9 CARDIAC DYSRHYTHMIA UNSPECIFIED 02/21/2012 TIMOTHY KAN WOLF S 788.1 DYSURIA 02/21/2012 TIMOTHY KAN, WOLF S 427.9 CARDIAC DYSRHYTHMIA UNSPECIFIED 02/21/2012 TIMOTHY KAN, WOLF S 788.1 DYSURIA 02/21/2012 HAFSA AGUIRRE APRNNDA S 427.9 CARDIAC DYSRHYTHMIA UNSPECIFIED 02/21/2012 TIMOTHY OFFICE MACHINE TECHNICIAN, WOLF S 788.1 DYSURIA 02/21/2012 TIMOTHY OFFICE MACHINE TECHNICIAN, WOLF S 427.9 CARDIAC DYSRHYTHMIA UNSPECIFIED 02/21/2012 TIMOTHY OFFICE MACHINE TECHNICIAN, WOLF S 788.1 DYSURIA 02/21/2012 WHITE DDS, MELISSA J 42 7.9 CARDIAC DYSRHYTHMIA UNSPECIFIED 02/21/2012 WHITE DDS, MELISSA J 78 8.1 DYSURIA 02/21/2012 TAN DDS, MARIA LUISA 42 7.9 CARDIAC DYSRHYTHMIA UNSPECIFIED 02/21/2012 TAN DDS, MARIA LUISA 78 8.1 DYSURIA 02/21/2012 HUSAM ORLANDO APRN 42 7.9 CARDIAC DYSRHYTHMIA UNSPECIFIED 02/21/2012 HUSAM ORLANDO APRN T 78 8.1 DYSURIA 02/21/2012 TIMOTHY KAN, WOLF S 427.9 CARDIAC DYSRHYTHMIA UNSPECIFIED 02/21/2012 TIMOTHY KAN, WOLF S 788.1 DYSURIA 02/21/2012 TIMOTHY GAINESN, WOLF S 427.9 CARDIAC DYSRHYTHMIA UNSPECIFIED 02/21/2012 TIMOTHY OFFICE MACHINE TECHNICIAN, WOLF S 788.1 DYSURIA 02/21/2012 CSASIE DOMINGUEZ, KADY Raymundo 427. 9 CARDIAC DYSRHYTHMIA UNSPECIFIED 02/21/2012 KADY MATTHEWS MD 788. 1 DYSURIA 02/21/2012 TIMOTHY OFFICE MACHINE TECHNICIAN, WOLF S 427.9 CARDIAC DYSRHYTHMIA UNSPECIFIED 02/21/2012 TIMOTHY GAINESN, WOLF S 788.1 DYSURIA 02/21/2012 TIMOTHY OFFICE MACHINE TECHNICIAN, WOLF S 427.9 CARDIAC DYSRHYTHMIA UNSPECIFIED 02/21/2012 TIMOTHY GAINESN, WOLF S 788.1 DYSURIA 02/21/2012 TAN DDS, MARIA LUISA 42 7.9 CARDIAC DYSRHYTHMIA UNSPECIFIED 02/21/2012 TAN DDS, MARIA LUISA 78 8.1 DYSURIA 02/21/2012 MAX DDS, KATHYA Chopra 427. 9 CARDIAC DYSRHYTHMIA UNSPECIFIED 02/21/2012 MAX DDS, KATHYA D 788. 1 DYSURIA 11/11/2012 789.03 ABD OMINAL PAIN RIGHT LOWER QUADRANT 11/11/2012 LJ DDS, KAELA F 789.03 ABDOMINAL PAIN RIGHT LOWER QUADRANT 11/11/2012 HUSAM ORLANDO APRN 789.03 ABDOMINAL PAIN RIGHT LOWER QUADRANT 11/11/2012 TIMOTHY KAN, WOLF S 789.03 ABDOMINAL PAIN RIGHT LOWER QUADRANT 11/11/2012 789.03 ABD OMINAL PAIN RIGHT LOWER QUADRANT 11/11/2012 NICOLE MORAIMA LOCKETT K 789.03 ABDOMINAL PAIN RIGHT LOWER QUADRANT 11/11/2012 789.03 ABD OMINAL PAIN RIGHT LOWER QUADRANT 11/11/2012 789.03 ABD OMINAL PAIN RIGHT LOWER QUADRANT 11/11/2012 789.03 ABD OMINAL PAIN RIGHT LOWER QUADRANT 11/11/2012 789.03 ABD OMINAL PAIN RIGHT LOWER QUADRANT 11/11/2012 NORMA DDSJUAREZ [...] LOWER QUADRANT 11/11/2012 CASSIE DOMINGUEZ, KADY Raymundo 789. 03 ABDOMINAL PAIN RIGHT LOWER QUADRANT 11/11/2012 YU AGUIRRE APRNA S 789.03 ABDOMINAL PAIN RIGHT LOWER QUADRANT 11/11/2012 YU AGUIRRE APRNA S 789.03 ABDOMINAL PAIN RIGHT LOWER QUADRANT 11/11/2012 TAN DDS, MARIA LUISA 789.03 ABDOMINAL PAIN RIGHT LOWER QUADRANT 11/11/2012 MAX DDS, KATHYA Keysha 789. 03 ABDOMINAL PAIN RIGHT LOWER QUADRANT 11/20/2012 LJ DDS, KAELA F 564.00 UNSPECIFIED CONSTIPATION 11/20/2012 LJ DDS, KAELA F 784.42 DYSPHONIA 11/20/2012 JOHANNY KAN, HUSAM T 564.00 UNSPECIFIED CONSTIPATION 11/20/2012 HUSAM ORLANDO APRN 784.42 DYSPHONIA 11/20/2012 WOLF AGUIRRE APRN S 564.00 UNSPECIFIED CONSTIPATION 11/20/2012 YU AGUIRRE APRNA S 784.42 DYSPHONIA 11/20/2012 564.00 UNS PECIFIED CONSTIPATION 11/20/2012 784.42 DYS PHONIA 11/20/2012 LILLIAN NICOLE DOA K 564.00 UNSPECIFIED CONSTIPATION 11/20/2012 NICOLE DO MORAIMA K 784.42 DYSPHONIA 11/20/2012 564.00 UNS PECIFIED CONSTIPATION 11/20/2012 784.42 DYS PHONIA 11/20/2012 564.00 UNS PECIFIED CONSTIPATION 11/20/2012 784.42 DYS PHONIA 11/20/2012 564.00 UNS PECIFIED CONSTIPATION 11/20/2012 784.42 DYS PHONIA 11/20/2012 564.00 UNS PECIFIED CONSTIPATION 11/20/2012 784.42 DYS PHONIA 11/20/2012 NORMA DDS, JUAREZ Pierre 564.00 UNSPECIFIED CONSTIPATION 11/20/2012 NORMA DDS, JUAREZ Pierre 784.42 DYSPHONIA 11/20/2012 NORMA DDS, JUAREZ Pierre 564.00 UNSPECIFIED CONSTIPATION 11/20/2012 NORMA DDS, JUAREZ Pierre 784.42 DYSPHONIA 11/20/2012 BONNIE LOCKETT MORAIMA K 564.00 UNSPECIFIED CONSTIPATION 11/20/2012 NICOLE DO MORAIMA K 784.42 DYSPHONIA 11/20/2012 YU AGUIRRE APRNA S 564.00 UNSPECIFIED CONSTIPATION 11/20/2012 TIMOTHY OFFICE MACHINE TECHNICIAN, WOLF S 784.42 DYSPHONIA 11/20/2012 TIMOTHY OFFICE MACHINE TECHNICIAN, WOLF S 564.00 UNSPECIFIED CONSTIPATION 11/20/2012 TIMOTHY OFFICE MACHINE TECHNICIAN, WOLF S 784.42 DYSPHONIA 11/20/2012 TIMOTHY OFFICE MACHINE TECHNICIAN, WOLF S 564.00 UNSPECIFIED CONSTIPATION 11/20/2012 TIMOTHY OFFICE MACHINE TECHNICIAN, WOLF S 784.42 DYSPHONIA 11/20/2012 TIMOTHY OFFICE MACHINE TECHNICIAN, WOLF S 564.00 UNSPECIFIED CONSTIPATION 11/20/2012 TIMOTHY OFFICE MACHINE TECHNICIAN, WOLF S 784.42 DYSPHONIA 11/20/2012 TIMOTHY OFFICE MACHINE TECHNICIAN, WOLF S 564.00 UNSPECIFIED CONSTIPATION 11/20/2012 TIMOTHY OFFICE MACHINE TECHNICIAN, WOLF S 784.42 DYSPHONIA 11/20/2012 GAGANDEEP DDS, MELISSA J 564.00 UNSPECIFIED CONSTIPATION 11/20/2012 WHITE DDS, MELISSA J 784.42 DYSPHONIA 11/20/2012 TAN DDS, MARIA LUISA 564.00 UNSPECIFIED CONSTIPATION 11/20/2012 TAN DDS, MARIA LUISA 784.42 DYSPHONIA 11/20/2012 HUSAM ORLANDO APRN T 564.00 UNSPECIFIED CONSTIPATION 11/20/2012 JOHANNY KAN, HUSAM T 784.42 DYSPHONIA 11/20/2012 TIMOTHY OFFICE MACHINE TECHNICIAN, WOLF S 564.00 UNSPECIFIED CONSTIPATION 11/20/2012 TIMOTHY GAINESN, WOLF S 784.42 DYSPHONIA 11/20/2012 TIMOTHY GAINESN, WOLF S 564.00 UNSPECIFIED CONSTIPATION 11/20/2012 TIMOTHY OFFICE MACHINE TECHNICIAN, WOLF S 784.42 DYSPHONIA 11/20/2012 CASSIE DOMINGUEZ, KADY Raymundo 564. 00 UNSPECIFIED CONSTIPATION 11/20/2012 CASSIE DOMINGUEZ, KADY Raymundo 784. 42 DYSPHONIA 11/20/2012 TIMOTHY OFFICE MACHINE TECHNICIAN, WOLF S 564.00 UNSPECIFIED CONSTIPATION 11/20/2012 TIMOTHY OFFICE MACHINE TECHNICIAN, WOLF S 784.42 DYSPHONIA 11/20/2012 TIMOTHY GAINESN, WOLF S 564.00 UNSPECIFIED CONSTIPATION 11/20/2012 TIMOTHY KAN, WOLF S 784.42 DYSPHONIA 11/20/2012 TAN DDS, MARIA LUISA 564.00 UNSPECIFIED CONSTIPATION 11/20/2012 TAN DDS, MARIA LUISA 784.42 DYSPHONIA 11/20/2012 MAX DDS, KATHYA D 564. 00 UNSPECIFIED CONSTIPATION 11/20/2012 MAX DDS, KATHYA Chopra 784. 42 DYSPHONIA 01/03/2013 HUSAM ORLANDO APRN 46 5.9 UPPER RESPIRATORY INFECTION 01/03/2013 TIMOTHY KAN, WOLF S 465.9 UPPER RESPIRATORY INFECTION 01/03/2013 465.9 UPPE R RESPIRATORY INFECTION 01/03/2013 MORAIMA NICOLE DO K 465.9 UPPER RESPIRATORY INFECTION 01/03/2013 465.9 UPPE R RESPIRATORY INFECTION 01/03/2013 465.9 UPPE R RESPIRATORY INFECTION 01/03/2013 465.9 UPPE R RESPIRATORY INFECTION 01/03/2013 465.9 UPPE R RESPIRATORY INFECTION 01/03/2013 NORMA WILCOXSJUAREZ 465.9 UPPER RESPIRATORY INFECTION 01/03/2013 NORMA WILCOXS, JUAREZ Pierre 465.9 UPPER RESPIRATORY INFECTION 01/03/2013 MORAIMA NICOLE DO K 465.9 UPPER RESPIRATORY INFECTION 01/03/2013 TIMOTHY GAINESN, WOLF S 465.9 UPPER RESPIRATORY INFECTION 01/03/2013 TIMOTHY GAINESN, WOLF S 465.9 UPPER RESPIRATORY INFECTION 01/03/2013 TIMOTHY OFFICE MACHINE TECHNICIAN, WOLF S 465.9 UPPER RESPIRATORY INFECTION 01/03/2013 TIMOTHY GAINESN, WOLF S 465.9 UPPER RESPIRATORY INFECTION 01/03/2013 TIMOTHY OFFICE MACHINE TECHNICIAN, WOLF S 465.9 UPPER RESPIRATORY INFECTION 01/03/2013 GAGANDEEP MARTINES, MELISSA Raymundo 46 5.9 UPPER RESPIRATORY INFECTION 01/03/2013 MARIA LUISA TAN DDS 46 5.9 UPPER RESPIRATORY INFECTION 01/03/2013 HUSAM ORLANDO APRN 46 5.9 UPPER RESPIRATORY INFECTION 01/03/2013 TIMOTHY KAN, WOLF S 465.9 UPPER RESPIRATORY INFECTION 01/03/2013 TIMOTHY KAN, WOLF S 465.9 UPPER RESPIRATORY INFECTION 01/03/2013 CASSIE DOMINGUEZ, KADY Raymundo 465. 9 UPPER RESPIRATORY INFECTION 01/03/2013 TIMOTHY OFFICE MACHINE TECHNICIAN, WOLF S 465.9 UPPER RESPIRATORY INFECTION 01/03/2013 TIMOTHY OFFICE MACHINE TECHNICIAN, WOLF S 465.9 UPPER RESPIRATORY INFECTION 01/03/2013 BRITNEY WILCOXS, MARIA LUISA 46 5.9 UPPER RESPIRATORY INFECTION 01/03/2013 MAX WILCOXS, KATHYA Chopra 465. 9 UPPER RESPIRATORY INFECTION 02/03/2013 873.8 OTHE R AND UNSPECIFIED OPEN WOUND OF HEAD WITHOUT COMPLICATION 02/03/2013 BONNIE DOMORAIMA K 873.8 Other And Unspecified Open Wound Of Head Without Complication 02/03/2013 873.8 Othe r And Unspecified Open Wound Of Head Without Complication 02/03/2013 873.8 Othe r And Unspecified Open Wound Of Head Without Complication 02/03/2013 873.8 Othe r And Unspecified Open Wound Of Head Without Complication 02/03/2013 873.8 Othe r And Unspecified Open Wound Of Head Without Complication 02/03/2013 NORMA WILCOXS, JUAREZ Pierre 873.8 Other And Unspecified Open Wound Of Head Without Compl ication 02/03/2013 NORMA WILCOXS, JUAREZ Pierre 873.8 Other And Unspecified Open Wound Of Head Without Compl ication 02/03/2013 MORAIMA NICOLE DO K 873.8 Other And Unspecified Open Wound Of Head Without Complication 02/03/2013 TIMOTHY OFFICE MACHINE TECHNICIAN, WOLF S 873.8 Other And Unspecified Open Wound Of Head Without Compl ication 02/03/2013 TIMOTHY OFFICE MACHINE TECHNICIAN, WOLF S 873.8 Other And Unspecified Open Wound Of Head Without Compl ication 02/03/2013 TIMOTHY OFFICE MACHINE TECHNICIAN, WOLF S 873.8 Other And Unspecified Open Wound Of Head Without Compl ication 02/03/2013 TIMOTHY OFFICE MACHINE TECHNICIAN, WOLF S 873.8 Other And Unspecified Open Wound Of Head Without Compl ication 02/03/2013 TIMOTHY OFFICE MACHINE TECHNICIAN, WOLF S 873.8 Other And Unspecified Open Wound Of Head Without Compl ication 02/03/2013 GAGANDEEP WILCOXS, MELISSA Raymundo 87 3.8 Other And Unspecified Open Wound Of Head Without Complication 02/03/2013 BRITNEY WILCOXSMARIA LUISA 87 3.8 Other And Unspecified Open Wound Of Head Without Complication 02/03/2013 HUSAM ORLANDO APRN 87 3.8 Other And Unspecified Open Wound Of Head Without Complication 02/03/2013 TIMOTHY OFFICE MACHINE TECHNICIAN, WOLF S 873.8 Other And Unspecified Open Wound Of Head Without Compl ication 02/03/2013 TIMOTHY OFFICE MACHINE TECHNICIAN, WOLF S 873.8 Other And Unspecified Open Wound Of Head Without Compl ication 02/03/2013 CASSIE DOMINGUEZ, KADY Raymundo 873. 8 Other And Unspecified Open Wound Of Head Without Complication 02/03/2013 TIMOTHY OFFICE MACHINE TECHNICIAN, WOLF S 873.8 Other And Unspecified Open Wound Of Head Without Compl ication 02/03/2013 TIMOTHY OFFICE MACHINE TECHNICIAN, WOLF S 873.8 Other And Unspecified Open Wound Of Head Without Compl ication 02/03/2013 MARIA LUISA TAN DDS 87 3.8 Other And Unspecified Open Wound Of Head Without Complication 02/03/2013 MAX MARTINES, KATHYA Chopra 873. 8 Other And Unspecified Open Wound Of Head Without Complication 02/10/2013 MORAIMA NICOLE DO V58.32 SUTURE REMOVAL 02/10/2013 V58.32 SUT URE REMOVAL 02/10/2013 V58.32 SUT URE REMOVAL 02/10/2013 V58.32 SUT URE REMOVAL 02/10/2013 V58.32 SUT URE REMOVAL 02/10/2013 NORMA WILCOXS, JUAREZ Pierre V58.32 SUTURE REMOVAL 02/10/2013 NORMA DDS, JUAREZ Pierre V58.32 SUTURE REMOVAL 02/10/2013 MORAIMA NICOLE DO K V58.32 SUTURE REMOVAL 02/10/2013 TIMOTHY OFFICE MACHINE TECHNICIAN, WOLF S V58.32 SUTURE REMOVAL 02/10/2013 TIMOTHY OFFICE MACHINE TECHNICIAN, WOLF S V58.32 SUTURE REMOVAL 02/10/2013 TIMOTHY OFFICE MACHINE TECHNICIAN, WOLF S V58.32 SUTURE REMOVAL 02/10/2013 TIMOTHY OFFICE MACHINE TECHNICIAN, WOLF S V58.32 SUTURE REMOVAL 02/10/2013 TIMOTHY OFFICE MACHINE TECHNICIAN, WOLF S V58.32 SUTURE REMOVAL 02/10/2013 GAGANDEEP MARTINES, MELISSA Raymundo V58.32 SUTURE REMOVAL 02/10/2013 MARIA LUISA TAN DDS V58.32 SUTURE REMOVAL 02/10/2013 HUSAM ORLANDO APRN V58.32 SUTURE REMOVAL 02/10/2013 TIMOTHY OFFICE MACHINE TECHNICIAN, WOLF S V58.32 SUTURE REMOVAL 02/10/2013 TIMOTHY OFFICE MACHINE TECHNICIAN, WOLF S V58.32 SUTURE REMOVAL 02/10/2013 CASSIE DOMINGUEZ, KADY Raymundo V58. 32 SUTURE REMOVAL 02/10/2013 TIMOTHY OFFICE MACHINE TECHNICIAN, WOLF S V58.32 SUTURE REMOVAL 02/10/2013 TIMOTHY OFFICE MACHINE TECHNICIAN, WOLF S V58.32 SUTURE REMOVAL 02/10/2013 BRITNEY DDS, MARIA LUISA V58.32 SUTURE REMOVAL 02/10/2013 MAX DDS, KATHYA Chopra V58. 32 SUTURE REMOVAL 04/03/2013 V65.49 OTH ER SPECIFIED COUNSELING 04/03/2013 V76.10 HAFSA AST CANCER SCREENING 04/03/2013 V65.49 OTH ER SPECIFIED COUNSELING 04/03/2013 V76.10 HAFSA AST CANCER SCREENING 04/03/2013 V65.49 OTH ER SPECIFIED COUNSELING 04/03/2013 V76.10 HAFSA AST CANCER SCREENING 04/03/2013 NORMA DDSJUAREZ V65.49 OTHER SPECIFIED COUNSELING 04/03/2013 NORMA DDJUAREZ Hoff V76.10 BREAST CANCER SCREENING 04/03/2013 JUAREZ GREEN DDS V65.49 OTHER SPECIFIED COUNSELING 04/03/2013 JUAREZ GREEN DDS V76.10 BREAST CANCER SCREENING 04/03/2013 MORAIMA NICOLE DO V65.49 OTHER SPECIFIED COUNSELING 04/03/2013 NICOLE DOMORAIMA K V76.10 BREAST CANCER SCREENING 04/03/2013 TIMOTHY OFFICE MACHINE TECHNICIAN, WOLF S V65.49 OTHER SPECIFIED COUNSELING 04/03/2013 TIMOTHY OFFICE MACHINE TECHNICIAN, WOLF S V76.10 BREAST CANCER SCREENING 04/03/2013 TIMOTHY OFFICE MACHINE TECHNICIAN, WOLF S V65.49 OTHER SPECIFIED COUNSELING 04/03/2013 TIMOTHY OFFICE MACHINE TECHNICIAN, WOLF S V76.10 BREAST CANCER SCREENING 04/03/2013 TIMOTHY OFFICE MACHINE TECHNICIAN, WOLF S V65.49 OTHER SPECIFIED COUNSELING 04/03/2013 TIMOTHY OFFICE MACHINE TECHNICIAN, WOLF S V76.10 BREAST CANCER SCREENING 04/03/2013 TIMOTHY OFFICE MACHINE TECHNICIAN, WOLF S V65.49 OTHER SPECIFIED COUNSELING 04/03/2013 TIMOTHY OFFICE MACHINE TECHNICIAN, WOLF S V76.10 BREAST CANCER SCREENING 04/03/2013 TIMOTHY OFFICE MACHINE TECHNICIAN, WOLF S V65.49 OTHER SPECIFIED COUNSELING 04/03/2013 TIMOTHY OFFICE MACHINE TECHNICIAN, WOLF S V76.10 BREAST CANCER SCREENING 04/03/2013 GAGANDEEP DDS, MELISSA Raymundo V65.49 OTHER SPECIFIED COUNSELING 04/03/2013 WHITE DDS, MELISSA Raymundo V76.10 BREAST CANCER SCREENING 04/03/2013 TAN DDS, MARIA LUISA V65.49 OTHER SPECIFIED COUNSELING 04/03/2013 TAN DDS, MARIA LUISA V76.10 BREAST CANCER SCREENING 04/03/2013 HUSAM ORLANDO APRN V65.49 OTHER SPECIFIED COUNSELING 04/03/2013 JOHANNY OFFICE MACHINE TECHNICIAN, HUSAM T V76.10 BREAST CANCER SCREENING 04/03/2013 TIMOTHY OFFICE MACHINE TECHNICIAN, WOLF S V65.49 OTHER SPECIFIED COUNSELING 04/03/2013 TIMOTHY OFFICE MACHINE TECHNICIAN, WOLF S V76.10 BREAST CANCER SCREENING 04/03/2013 TIMOTHY OFFICE MACHINE TECHNICIAN, WOLF S V65.49 OTHER SPECIFIED COUNSELING 04/03/2013 TIMOTHY OFFICE MACHINE TECHNICIAN, WOLF S V76.10 BREAST CANCER SCREENING 04/03/2013 CASSIE DOMINGUEZ, KADY Raymundo V65. 49 OTHER SPECIFIED COUNSELING 04/03/2013 CASSIE DOMINGUEZ, KADY Raymundo V76. 10 BREAST CANCER SCREENING 04/03/2013 TIMOTHY OFFICE MACHINE TECHNICIAN, WOLF S V65.49 OTHER SPECIFIED COUNSELING 04/03/2013 TIMOTHY OFFICE MACHINE TECHNICIAN, WOLF S V76.10 BREAST CANCER SCREENING 04/03/2013 TIMOTHY OFFICE MACHINE TECHNICIAN, WOLF S V65.49 OTHER SPECIFIED COUNSELING 04/03/2013 TIMOTHY OFFICE MACHINE TECHNICIAN, WOLF S V76.10 BREAST CANCER SCREENING 04/03/2013 TAN DDS, MARIA LUISA V65.49 OTHER SPECIFIED COUNSELING 04/03/2013 TAN DDS, MARIA LUISA V76.10 BREAST CANCER SCREENING 04/03/2013 MAX DDS, KATHYA Chopra V65. 49 OTHER SPECIFIED COUNSELING 04/03/2013 MAX DDS, KATHYA Chopra V76. 10 BREAST CANCER SCREENING 03/01/2014 CARITO DOMINGUEZ, BOB Pierre Ot 272.4 HYPERLIPIDEMIA NEC/NOS 03/01/2014 CARITO DOMINGUEZ, BOB Pierre Ot 31 1 DEPRESSIVE DISORDER NEC 03/01/2014 CARITO DOMINGUEZ, BOB Pierre Ot 564.00 UNSPEC CONSTIPATION 10/13/2014 HUSAM ORLANDO APRN 72 3.1 PAIN NECK 10/13/2014 YU AGUIRRE APRNA S 723.1 PAIN NECK 10/13/2014 HAFSA AGUIRRE APRNNDA S 723.1 PAIN NECK 10/13/2014 KADY MATTHEWS MD 723. 1 PAIN NECK 10/13/2014 YU AGUIRRE APRNA S 723.1 PAIN NECK 10/13/2014 YU AGUIRRE APRNA S 723.1 PAIN NECK 10/13/2014 MARIA LUISA TAN DDS 72 3.1 PAIN NECK 10/13/2014 KATHYA SANTANA DDS 723. 1 PAIN NECK 10/18/2014 HAFSA AGUIRRE APRNNDA S 535.50 GASTRITIS UNSPEC 10/18/2014 YU AGUIRRE APRNA S 535.50 GASTRITIS UNSPEC 10/18/2014 KADY MATTHEWS MD 535. 50 GASTRITIS UNSPEC 10/18/2014 YU AGUIRRE APRNA S 535.50 GASTRITIS UNSPEC 10/18/2014 YU AGUIRRE APRNA S 535.50 GASTRITIS UNSPEC 10/18/2014 MARIA LUISA TAN DDS 535.50 GASTRITIS UNSPEC 10/18/2014 KATHYA SANTANA DDS 535. 50 GASTRITIS UNSPEC 11/07/2014 KADY MATTHEWS MD Ot 272. 0 PURE HYPERCHOLESTEROLEM 11/07/2014 KADY MATTHEWS MD Ot 401. 9 HYPERTENSION NOS 11/07/2014 KADY MATTHEWS MD Ot 414. 01 CORONARY ATHEROSCLEROSIS OF [place] CORON 11/07/2014 KADY MATTHEWS MD Ot 427. 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 NEC 11/07/2014 KADY MATTHEWS MD Ot 530. 81 ESOPHAGEAL REFLUX 11/07/2014 KADY MATTHEWS MD Ot 558. 9 NONINF GASTROENTERIT NEC 11/07/2014 KADY MATTHEWS MD Ot 564. 00 UNSPEC CONSTIPATION 11/07/2014 KADY MATTHEWS MD, Ot V04. 81 ND FOR PROPHYLACTIC VACCIN AND INOCULATI 01/03/2015 WOLF AGUIRRE APRN S 706.1 ACNE 01/03/2015 WOLF AGUIRRE APRN S 719.46 PAIN- KNEE 01/03/2015 WOLF AGUIRRE APRN S 706.1 ACNE 01/03/2015 WOLF AGUIRRE APRN S 719.46 PAIN- KNEE 01/03/2015 TAN DDS, MARIA LUISA 70 6.1 ACNE 01/03/2015 TAN DDS, MARIA LUISA 719.46 PAIN- KNEE 01/03/2015 MAX DDS, KATHYA Chopra 706. 1 ACNE 01/03/2015 MAX DDS, KATHYA Chopra 719. 46 PAIN- KNEE 02/09/2015 WOLF AGUIRRE APRN S 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 02/09/2015 TAN DDS, MARIA LUISA 33 3.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 02/09/2015 MAX DDS, KATHYA Chopra 333. 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 02/23/2015 TAN DDS, MARIA LUISA 78 6.2 COUGH 02/23/2015 MAX DDS, KATHYA Chopra 786. 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 Z12.31 10/26/2015 KAREEN DEEPTIPB Ann APRN Ot V76.12 10/26/2015 CARITO DOMINUGEZ, BOB M Ot V72.84 10/26/2015 WOLF AGUIRRE Ot V76.12 10/26/2015 WOLF AGUIRRE Ot Z12.31 02/07/2016 FRED DOS SANTOS MD Ot E87 .1 HYPO-OSMOLALITY AND HYPONATREMIA 02/07/2016 FRED DOS SANTOS MD Ot F32 .9 MAJOR DEPRESSIVE DISORDER, SINGLE EPISOD 02/07/2016 FRED DOS SANTOS MD Ot F41 .9 ANXIETY DISORDER, UNSPECIFIED 02/07/2016 FRED DOS SANTOS MD Ot G25 .0 ESSENTIAL TREMOR 02/07/2016 FRED DOS SANTOS MD Ot I10 ESSENTIAL (PRIMARY) HYPERTENSION 02/07/2016 FRED DOS SANTOS MD Ot I25 .5 ISCHEMIC CARDIOMYOPATHY 02/07/2016 FRED DOS SANTOS MD Ot R07 .2 PRECORDIAL PAIN 02/07/2016 FRED DOS SANTOS MD Ot R19 .7 DIARRHEA, UNSPECIFIED 02/07/2016 FRED DOS SANTOS MD Ot R51 HEADACHE 02/07/2016 FRED DOS SANTOS MD Ot E87 .1 02/07/2016 FRED DOS SANTOS MD Ot F32 .9 02/07/2016 FRED DOS SANTOS MD Ot F41 .9 02/07/2016 FRED DOS SANTOS MD Ot G25 .0 02/07/2016 FRED DOS SANTOS MD Ot I10 02/07/2016 FRED DOS SANTOS MD Ot I25 .5 02/07/2016 FRED DOS SANTOS MD Ot R07 .2 02/07/2016 FRED DOS SANTOS MD Ot R19 .7 02/07/2016 LEVON DOMINGUEZ, FRED Ann Ot R51 05/02/2016 KADY MATTHEWS MD, Ot D62 ACUTE POSTHEMORRHAGIC ANEMIA 05/02/2016 KADY MATTHEWS MD, Ot D64. 9 ANEMIA, UNSPECIFIED 05/02/2016 KADY MATTHEWS MD Ot E78. 5 HYPERLIPIDEMIA, UNSPECIFIED 05/02/2016 KADY MATTHEWS MD Ot F32. 9 MAJOR DEPRESSIVE DISORDER, SINGLE EPISOD 05/02/2016 KADY MATTHEWS MD Ot F41. 9 ANXIETY DISORDER, UNSPECIFIED 05/02/2016 KADY MATTHEWS MD Ot I10 ESSENTIAL (PRIMARY) HYPERTENSION 05/02/2016 KADY MATTHEWS MD, Ot I25. 10 ATHSCL HEART DISEASE OF [place] CORONARY 05/02/2016 KADY MATTHEWS MD Ot I49. 3 VENTRICULAR PREMATURE DEPOLARIZATION 05/02/2016 KADY MATTHEWS MD Ot K21. 9 GASTRO-ESOPHAGEAL REFLUX DISEASE WITHOUT 05/02/2016 KADY MATTHEWS MD, Ot K59. 00 CONSTIPATION, UNSPECIFIED 05/02/2016 KADY MATTHEWS MD, Ot R10. 13 EPIGASTRIC PAIN 05/02/2016 KADY MATTHEWS MD Ot S09.90XA UNSPECIFIED INJURY OF HEAD, INITIAL ENCO 05/02/2016 KADY MATTHEWS MD, Ot S72.142A DISPLACED INTERTROCHANTERIC FRACTURE OF 05/02/2016 KADY MATTHEWS MD Ot W19.XXXA UNSPECIFIED FALL, INITIAL ENCOUNTER 05/02/2016 KADY MATTHEWS MD, Ot Y92.513 SHOP (COMMERCIAL) PLACE 05/02/2016 KADY MATTHEWS MD Ot Z95. 1 PRESENCE OF AORTOCORONARY BYPASS GRAFT 05/02/2016 DEEPTI MATHUR APRN Ot V76.12 OTH SCREEN MAMMO-MALIGN NEOPLASM OF [place] 05/02/2016 CARITO DOMINGUEZ, BOB Pierre Ot V72.84 EXAM PRE-OPERATIVE NOS 05/02/2016 WOLF AGUIRRE Ot V76.12 OTH SCREEN MAMMO-MALIGN NEOPLASM OF [place] 05/02/2016 TIMOTHY, WOLF HAND CIGAR MAKING SUPERVISOR Ot Z12.31 ENCNTR SCREEN MAMMOGRAM FOR MALIGNANT NE 05/04/2016 DEEPTI MATHUR A OFFICE MACHINE TECHNICIAN Ot V76.12 OTH SCREEN MAMMO-MALIGN NEOPLASM OF [place] 05/04/2016 CARITO DOMINGUEZ, BOB M Ot V72.84 EXAM PRE-OPERATIVE NOS 05/04/2016 WOLF AGUIRRE HAND CIGAR MAKING SUPERVISOR Ot V76.12 OTH SCREEN MAMMO-MALIGN NEOPLASM OF [place] 05/04/2016 WOLF AGUIRRE HAND CIGAR MAKING SUPERVISOR Ot Z12.31 ENCNTR SCREEN MAMMOGRAM FOR MALIGNANT NE 05/04/2016 DEEPTI MATHUR A OFFICE MACHINE TECHNICIAN Ot V76.12 OTH SCREEN MAMMO-MALIGN NEOPLASM OF [place] 05/04/2016 CARITO DOMINGUEZ, BOB M Ot V72.84 EXAM PRE-OPERATIVE NOS 05/04/2016 WOLF AGUIRRE HAND CIGAR MAKING SUPERVISOR Ot V76.12 OTH SCREEN MAMMO-MALIGN NEOPLASM OF [place] 05/04/2016 HAFSA AGUIRRENDA HAND CIGAR MAKING SUPERVISOR Ot Z12.31 ENCNTR SCREEN MAMMOGRAM FOR MALIGNANT NE 05/06/2016 FRANCE NAVARRO MD Ot D64.9 ANEMIA, UNSPECIFIED 05/06/2016 FRANCE NAVARRO MD Ot F32.9 MAJOR DEPRESSIVE DISORDER, SINGLE EPISOD 05/06/2016 FRANCE NAVARRO MD Ot 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 05/06/2016 FRANCE NAVARRO MD Ot I10 ESSENTIAL (PRIMARY) HYPERTENSION 05/06/2016 FRANCE NAVARRO MD Ot I25.1 0 ATHSCL HEART DISEASE OF [place] CORONARY 05/06/2016 FRANCE NAVARRO MD Ot I49.3 VENTRICULAR PREMATURE DEPOLARIZATION 05/06/2016 FRANCE NAVARRO MD Ot K21.9 GASTRO-ESOPHAGEAL REFLUX DISEASE WITHOUT 05/06/2016 FRANCE NAVARRO MD Ot K59.0 0 CONSTIPATION, UNSPECIFIED 05/06/2016 FRANCE NAVARRO MD Ot R45.1 RESTLESSNESS AND AGITATION 05/06/2016 FRANCE NAVARRO MD Ot S09.90XD UNSPECIFIED INJURY OF HEAD, SUBSEQUENT E 05/06/2016 FRANCE NAVARRO MD Ot S72.142D DISPL INTERTROCH FX L FEMUR, SUBS FOR CL 05/06/2016 FRANCE NAVARRO MD Ot W19.XXXD UNSPECIFIED FALL, SUBSEQUENT ENCOUNTER 05/06/2016 FRANCE NAVARRO MD Ot Y92.5 [address] SH[address] (COMMERCIAL) PL[address] 05/06/2016 FRANCE NAVARRO MD Ot Z95.1 PRESENCE OF AORTOCORONARY BYPASS GRAFT 05/12/2016 FRANCE NAVARRO MD Ot D64.9 ANEMIA, UNSPECIFIED 05/12/2016 FRANCE NAVARRO MD Ot F32.9 MAJOR DEPRESSIVE DISORDER, SINGLE EPISOD 05/12/2016 FRANCE NAVARRO MD Ot 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 05/12/2016 FRANCE NAVARRO MD Ot I10 ESSENTIAL (PRIMARY) HYPERTENSION 05/12/2016 FRANCE NAVARRO MD Ot I25.1 0 ATHSCL HEART DISEASE OF [place] CORONARY 05/12/2016 FRANCE NAVARRO MD Ot I49.3 VENTRICULAR PREMATURE DEPOLARIZATION 05/12/2016 FRANCE NAVARRO MD Ot K21.9 GASTRO-ESOPHAGEAL REFLUX DISEASE WITHOUT 05/12/2016 FRANCE NAVARRO MD Ot K59.0 0 CONSTIPATION, UNSPECIFIED 05/12/2016 FRNACE NAVARRO MD Ot N39.0 URINARY TRACT INFECTION, SITE NOT SPECIF 05/12/2016 FRANCE NAVARRO MD Ot R45.1 RESTLESSNESS AND AGITATION 05/12/2016 FRANCE NAVARRO MD Ot S09.90XD UNSPECIFIED INJURY OF HEAD, SUBSEQUENT E 05/12/2016 FRANCE NAVARRO MD Ot S72.142D DISPL INTERTROCH FX L FEMUR, SUBS FOR CL 05/12/2016 FRANCE NAVARRO MD Ot W19.XXXD UNSPECIFIED FALL, SUBSEQUENT ENCOUNTER 05/12/2016 FRANCE NAVARRO MD Ot Y92.5 [address] ([address]ER[address]) PL[address] 05/12/2016 FRANCE NAVARRO MD Ot Z95.1 PRESENCE OF AORTOCORONARY BYPASS GRAFT 08/10/2016 MEI HILL MD, Ot F32.9 MAJOR DEPRESSIVE DISORDER, SINGLE EPISOD 08/10/2016 MEI HILL MD Ot F41.9 ANXIETY DISORDER, UNSPECIFIED 08/10/2016 MEI HILL MD Ot I10 ESSENTIAL (PRIMARY) HYPERTENSION 08/10/2016 MEI HILL MD Ot R10.32 LEFT LOWER QUADRANT PAIN 08/10/2016 MEI HILL MD Ot Z79.82 [facility] (CURRENT) USE OF ASPIRIN 08/10/2016 MEI HILL MD Ot Z79.899 OTHER PRODUCT CONTROLLER (CURRENT) DRUG THERAPY 08/27/2016 ANNEMARIE MATHURPB Ann APRN Ot V76.12 OTH SCREEN MAMMO-MALIGN NEOPLASM OF [place] 08/27/2016 CARITO DOMINGUEZ, BOB Pierre Ot V72.84 EXAM PRE-OPERATIVE NOS 08/27/2016 WOLF AGUIRRE HAND CIGAR MAKING SUPERVISOR Ot V76.12 OTH SCREEN MAMMO-MALIGN NEOPLASM OF [place] 08/27/2016 WOLF AGUIRRE HAND CIGAR MAKING SUPERVISOR Ot Z12.31 ENCNTR SCREEN MAMMOGRAM FOR MALIGNANT NE 03/08/2017 VAN GILLETTE APRN Ot F41 .9 ANXIETY DISORDER, UNSPECIFIED 03/08/2017 VAN GILLETTE APRN Ot I10 ESSENTIAL (PRIMARY) HYPERTENSION 03/08/2017 VAN GILLETTE APRN Ot I25.10 ATHSCL HEART DISEASE OF [place] CORONARY 03/08/2017 VAN GILLETTE APRN Ot M25.551 PAIN IN RIGHT HIP 03/08/2017 VAN GILLETTE APRN Ot M25.552 PAIN IN LEFT HIP 03/08/2017 VAN GILLETTE APRN Ot Z79.01 PRODUCT CONTROLLER (CURRENT) USE OF ANTICOAGULANT 03/08/2017 VAN GILLETTE APRN Ot Z79.82 [facility] (CURRENT) USE OF ASPIRIN 03/08/2017 VAN GILLETTE APRN Ot Z79.899 OTHER PRODUCT CONTROLLER (CURRENT) DRUG THERAPY 03/08/2017 VAN GILLETTE APRN Ot Z91.14 PATIENT'S OTHER NONCOMPLIANCE WITH MEDIC 03/08/2017 VAN GILLETTE APRN Ot Z95 .1 PRESENCE OF AORTOCORONARY BYPASS GRAFT 03/08/2017 VAN GILLETTE APRN Ot Z96.641 PRESENCE OF RIGHT ARTIFICIAL HIP JOINT 03/11/2017 VAN GILLETTE APRN Ot F41 .9 ANXIETY DISORDER, UNSPECIFIED 03/11/2017 VAN GILLETTE APRN Ot I10 ESSENTIAL (PRIMARY) HYPERTENSION 03/11/2017 VAN GILLETTE APRN Ot I25.10 ATHSCL HEART DISEASE OF [place] CORONARY 03/11/2017 VAN GILLETTE APRN Ot M25.551 PAIN IN RIGHT HIP 03/11/2017 VAN GILLETTE APRN Ot M25.552 PAIN IN LEFT HIP 03/11/2017 VAN GILLETTE OFFICE MACHINE TECHNICIAN Ot Z79.01 [facility] (CURRENT) USE OF ANTICOAGULANT 03/11/2017 VAN GILLETTE OFFICE MACHINE TECHNICIAN Ot Z79.82 PRODUCT CONTROLLER (CURRENT) USE OF ASPIRIN 03/11/2017 VAN GILLETTE OFFICE MACHINE TECHNICIAN Ot Z79.899 OTHER [facility] (CURRENT) DRUG THERAPY 03/11/2017 VAN GILLETTE OFFICE MACHINE TECHNICIAN Ot Z91.14 PATIENT'S OTHER NONCOMPLIANCE WITH MEDIC 03/11/2017 VAN GILLETTE APRN Ot Z95 .1 PRESENCE OF AORTOCORONARY BYPASS GRAFT 03/11/2017 VAN GILLETTE APRN Ot Z96.641 PRESENCE OF RIGHT ARTIFICIAL HIP JOINT 03/11/2017 VAN GILLETTE APRN Ot F41 .9 ANXIETY DISORDER, UNSPECIFIED 03/11/2017 VAN GILLETTE APRN Ot I10 ESSENTIAL (PRIMARY) HYPERTENSION 03/11/2017 VAN GILLETTE APRN Ot I25.10 ATHSCL HEART DISEASE OF [place] CORONARY 03/11/2017 VAN GILLETTE APRN Ot M25.551 PAIN IN RIGHT HIP 03/11/2017 VAN GILLETTE APRN Ot M25.552 PAIN IN LEFT HIP 03/11/2017 VAN GILLETTE APRN Ot Z79.01 [facility] (CURRENT) USE OF ANTICOAGULANT 03/11/2017 VAN GILLETTE APRN Ot Z79.82 [facility] (CURRENT) USE OF ASPIRIN 03/11/2017 VAN GILLETTE APRN Ot Z79.899 OTHER [facility] (CURRENT) DRUG THERAPY 03/11/2017 VAN GILLETTE APRN Ot Z91.14 PATIENT'S OTHER NONCOMPLIANCE WITH MEDIC 03/11/2017 VAN GILLETTE APRN Ot Z95 .1 PRESENCE OF AORTOCORONARY BYPASS GRAFT 03/11/2017 VAN [...] MD Ot I25.10 ATHSCL HEART DISEASE OF [place] CORONARY 07/30/2017 MEI HILL MD, Ot K21.9 GASTRO-ESOPHAGEAL REFLUX DISEASE WITHOUT 07/30/2017 MEI HILL MD Ot K59.00 CONSTIPATION, UNSPECIFIED 07/30/2017 MEI HILL MD, Ot M19.90 UNSPECIFIED OSTEOARTHRITIS, UNSPECIFIED 07/30/2017 MEI HILL MD Ot R10.84 GENERALIZED ABDOMINAL PAIN 07/30/2017 MEI HILL MD, Ot Z79.01 [facility] (CURRENT) USE OF ANTICOAGULANT 07/30/2017 MEI HILL MD, Ot Z79.82 [facility] (CURRENT) USE OF ASPIRIN 07/30/2017 MEI HILL MD, Ot Z82.49 FAMILY HX OF ISCHEM HEART DIS AND OTH DI 07/30/2017 MEI HILL MD, Ot Z87.440 PERSONAL HISTORY OF URINARY (TRACT) INFE 07/30/2017 MEI HILL MD, Ot Z87.448 PERSONAL HISTORY OF OTHER DISEASES OF UR 07/30/2017 MEI HILL MD Ot Z95.1 PRESENCE OF AORTOCORONARY BYPASS GRAFT 07/30/2017 MEI HILL MD Ot Z96.641 PRESENCE OF RIGHT ARTIFICIAL HIP JOINT 08/01/2017 MEI HILL MD Ot E78.00 PURE HYPERCHOLESTEROLEMIA, UNSPECIFIED 08/01/2017 MEI HILL MD Ot F32.9 MAJOR DEPRESSIVE DISORDER, SINGLE EPISOD 08/01/2017 MEI HILL MD Ot F41.9 ANXIETY DISORDER, UNSPECIFIED 08/01/2017 MEI HILL MD Ot I10 ESSENTIAL (PRIMARY) HYPERTENSION 08/01/2017 MEI HILL MD Ot I25.10 ATHSCL HEART DISEASE OF [place] CORONARY 08/01/2017 MEI HILL MD Ot K21.9 GASTRO-ESOPHAGEAL REFLUX DISEASE WITHOUT 08/01/2017 MEI HILL MD Ot K59.00 CONSTIPATION, UNSPECIFIED 08/01/2017 MEI HILL MD Ot M19.90 UNSPECIFIED OSTEOARTHRITIS, UNSPECIFIED 08/01/2017 MEI HILL MD Ot R10.84 GENERALIZED ABDOMINAL PAIN 08/01/2017 MEI HILL MD, Ot Z79.01 [facility] (CURRENT) USE OF ANTICOAGULANT 08/01/2017 MEI HILL MD, Ot Z79.82 [facility] (CURRENT) USE OF ASPIRIN 08/01/2017 MEI HILL MD, Ot Z82.49 FAMILY HX OF ISCHEM HEART DIS AND OTH DI 08/01/2017 MEI HILL MD, Ot Z87.440 PERSONAL HISTORY OF URINARY (TRACT) INFE 08/01/2017 MEI HILL MD, Ot Z87.448 PERSONAL HISTORY OF OTHER DISEASES OF UR 08/01/2017 MEI HILL MD, Ot Z95.1 PRESENCE OF AORTOCORONARY BYPASS GRAFT 08/01/2017 MEI HILL MD Ot Z96.641 PRESENCE OF RIGHT ARTIFICIAL HIP JOINT 09/13/2017 DEEPTI MATHUR APRN Ot V76.12 OTH SCREEN MAMMO-MALIGN NEOPLASM OF [place] 09/13/2017 CARITO DOMINGUEZ, BOB Pierre Ot V72.84 EXAM PRE-OPERATIVE NOS 09/13/2017 WOLF AGUIRRE Ot V76.12 OTH SCREEN MAMMO-MALIGN NEOPLASM OF [place] 09/13/2017 WOLF AGUIRRE HAND CIGAR MAKING SUPERVISOR Ot Z12.31 ENCNTR SCREEN MAMMOGRAM FOR MALIGNANT NE 09/16/2017 SHANDA SAINI MD Ot R10.9 UNSPECIFIED ABDOMINAL PAIN 09/16/2017 SHANDA SAINI MD Ot Z01.81 8 ENCOUNTER FOR OTHER PREPROCEDURAL EXAMIN 09/16/2017 SHANDA SAINI MD Ot R10.9 UNSPECIFIED ABDOMINAL PAIN 09/16/2017 SHANDA SAINI MD Ot Z01.81 8 ENCOUNTER FOR OTHER PREPROCEDURAL EXAMIN 09/16/2017 SHANDA SAINI MD Ot R10.9 UNSPECIFIED ABDOMINAL PAIN 09/16/2017 SHANDA SAINI MD Ot Z01.81 8 ENCOUNTER FOR OTHER PREPROCEDURAL EXAMIN 09/18/2017 SHANDA SAINI MD Ot F03.90 UNSPECIFIED DEMENTIA WITHOUT BEHAVIORAL 09/18/2017 SHANDA SAINI MD Ot I25.10 ATHSCL HEART DISEASE OF [place] CORONARY 09/18/2017 SHANDA SAINI MD Ot K21.0 [...] UNSPECIFIED 09/18/2017 SHANDA SAINI MD Ot Z79.82 [facility] (CURRENT) USE OF ASPIRIN 09/18/2017 SHANDA SAINI MD Ot Z79.89 9 OTHER [facility] (CURRENT) DRUG THERAPY 09/18/2017 SHANDA SAINI MD Ot Z95.1 PRESENCE OF AORTOCORONARY BYPASS GRAFT 09/18/2017 SHANDA SAINI MD Ot 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, BILATE 09/19/2017 SHANDA SAINI MD Ot F03.90 UNSPECIFIED DEMENTIA WITHOUT BEHAVIORAL 09/19/2017 SHANDA SAINI MD Ot I25.10 ATHSCL HEART DISEASE OF [place] CORONARY 09/19/2017 SHANDA SAINI MD Ot K21.0 GASTRO-ESOPHAGEAL REFLUX DISEASE WITH ES 09/19/2017 SHANDA SAINI MD Ot K25.9 GASTRIC ULCER, UNSP ACUTE OR CHRONIC, 09/19/2017 SHANDA SAINI MD Ot K29.70 GASTRITIS, UNSPECIFIED, WITHOUT BLEEDING 09/19/2017 SHANDA SAINI MD Ot K44.9 DIAPHRAGMATIC HERNIA WITHOUT OBSTRUCTION 09/19/2017 SHANDA SAINI MD Ot K59.00 CONSTIPATION, UNSPECIFIED 09/19/2017 SHANDA SAINI MD Ot K64.1 SECOND DEGREE HEMORRHOIDS 09/19/2017 SHANDA SAINI MD Ot Z79.82 PRODUCT CONTROLLER (CURRENT) USE OF ASPIRIN 09/19/2017 SHANDA SAINI MD Ot Z79.89 9 OTHER PRODUCT CONTROLLER (CURRENT) DRUG THERAPY 09/19/2017 SHANDA SAINI MD Ot Z95.1 PRESENCE OF AORTOCORONARY BYPASS GRAFT 09/19/2017 SHANDA SAINI MD, Ot 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, BILATE 09/25/2017 DEEPTI MATHUR OFFICE MACHINE TECHNICIAN Ot V76.12 OTH SCREEN MAMMO-MALIGN NEOPLASM OF [place] 09/25/2017 BOB ARZATE MD Ot V72.84 EXAM PRE-OPERATIVE NOS 09/25/2017 WOLF AGUIRRE HAND CIGAR MAKING SUPERVISOR Ot V76.12 OTH SCREEN MAMMO-MALIGN NEOPLASM OF [place] 09/25/2017 WOLF AGUIRRE HAND CIGAR MAKING SUPERVISOR Ot Z12.31 ENCNTR SCREEN MAMMOGRAM FOR MALIGNANT NE 09/27/2017 SHANDA SAINI MD Ot F03.90 UNSPECIFIED DEMENTIA WITHOUT BEHAVIORAL 09/27/2017 SHANDA SAINI MD, Ot I25.10 ATHSCL HEART DISEASE OF [place] CORONARY 09/27/2017 SHANDA SAINI MD Ot K21.0 [...] K64.1 SECOND DEGREE HEMORRHOIDS 09/27/2017 SHANDA SAINI MD Ot R19.7 DIARRHEA, UNSPECIFIED 09/27/2017 SHANDA SAINI MD Ot Z79.82 [facility] (CURRENT) USE OF ASPIRIN 09/27/2017 SHANDA SAINI MD Ot Z79.89 9 OTHER [facility] (CURRENT) DRUG THERAPY 09/27/2017 SHANDA SAINI MD Ot Z95.1 PRESENCE OF AORTOCORONARY BYPASS GRAFT 09/27/2017 SHANDA SAINI MD Ot 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, BILATE 08/20/2018 DEEPTI MATHUR OFFICE MACHINE TECHNICIAN Ot V76.12 OTH SCREEN MAMMO-MALIGN NEOPLASM OF [place] 08/20/2018 CARITO DOMINGUEZ, BOB Gabby Ot V72.84 EXAM PRE-OPERATIVE NOS 08/20/2018 WOLF AGUIRRE EUGENIA Ot V76.12 OTH SCREEN MAMMO-MALIGN NEOPLASM OF [place] 08/20/2018 WOLF AGUIRRE EUGENIA Ot Z12.31 ENCNTR SCREEN MAMMOGRAM FOR MALIGNANT NE 08/20/2018 MELY MANUEL HAND CIGAR MAKING SUPERVISOR Ot E78.00 PURE HYPERCHOLESTEROLEMIA, UNSPECIFIED 08/20/2018 MELY, MANUEL HAND CIGAR MAKING SUPERVISOR Ot F32.9 MAJOR DEPRESSIVE DISORDER, SINGLE EPISOD 08/20/2018 MELY, MANUEL HAND CIGAR MAKING SUPERVISOR Ot F41.9 ANXIETY DISORDER, UNSPECIFIED 08/20/2018 MELY, MANUEL HAND CIGAR MAKING SUPERVISOR Ot I10 ESSENTIAL (PRIMARY) HYPERTENSION 08/20/2018 MELY, MANUEL HAND CIGAR MAKING SUPERVISOR Ot I25.10 ATHSCL HEART DISEASE OF [place] CORONARY 08/20/2018 MELY MANUEL HAND CIGAR MAKING SUPERVISOR Ot K21.9 GASTRO-ESOPHAGEAL REFLUX DISEASE WITHOUT 08/20/2018 MELY, MANUEL HAND CIGAR MAKING SUPERVISOR Ot K59.00 CONSTIPATION, UNSPECIFIED 08/20/2018 MELY, MANUEL HAND CIGAR MAKING SUPERVISOR Ot Z79.82 PRODUCT CONTROLLER (CURRENT) USE OF ASPIRIN 08/20/2018 MELY MANUEL HAND CIGAR MAKING SUPERVISOR Ot Z82.49 FAMILY HX OF ISCHEM HEART DIS AND OTH DI 08/20/2018 MELY MANUEL HAND CIGAR MAKING SUPERVISOR Ot Z87.440 PERSONAL HISTORY OF URINARY (TRACT) INFE 08/20/2018 MELY AMNUEL HAND CIGAR MAKING SUPERVISOR Ot Z88.5 ALLERGY STATUS TO NARCOTIC AGENT STATUS 08/20/2018 MELY MANUEL HAND CIGAR MAKING SUPERVISOR Ot Z95.1 PRESENCE OF AORTOCORONARY BYPASS GRAFT 08/20/2018 MELY MANUEL HAND CIGAR MAKING SUPERVISOR Ot Z96.641 PRESENCE OF RIGHT ARTIFICIAL HIP JOINT 08/22/2018 MELY, MANUEL HAND CIGAR MAKING SUPERVISOR Ot E78.00 PURE HYPERCHOLESTEROLEMIA, UNSPECIFIED 08/22/2018 MELY, MANUEL HAND CIGAR MAKING SUPERVISOR Ot F32.9 MAJOR DEPRESSIVE DISORDER, SINGLE EPISOD 08/22/2018 MELY, MANUEL HAND CIGAR MAKING SUPERVISOR Ot F41.9 ANXIETY DISORDER, UNSPECIFIED 08/22/2018 MELY, MANUEL HAND CIGAR MAKING SUPERVISOR Ot I10 ESSENTIAL (PRIMARY) HYPERTENSION 08/22/2018 MELY, MANUEL HAND CIGAR MAKING SUPERVISOR Ot I25.10 ATHSCL HEART DISEASE OF [place] CORONARY 08/22/2018 MELY, MANUEL HAND CIGAR MAKING SUPERVISOR Ot K21.9 GASTRO-ESOPHAGEAL REFLUX DISEASE WITHOUT 08/22/2018 MELY, MANUEL HAND CIGAR MAKING SUPERVISOR Ot K59.00 CONSTIPATION, UNSPECIFIED 08/22/2018 MELY, MANUEL HAND CIGAR MAKING SUPERVISOR Ot Z79.82 [facility] (CURRENT) USE OF ASPIRIN 08/22/2018 MELY, MANUEL HAND CIGAR MAKING SUPERVISOR Ot Z82.49 FAMILY HX OF ISCHEM HEART DIS AND OTH DI 08/22/2018 MELY, MANUEL HAND CIGAR MAKING SUPERVISOR Ot Z87.440 PERSONAL HISTORY OF URINARY (TRACT) INFE 08/22/2018 MELY, MANUEL HAND CIGAR MAKING SUPERVISOR Ot Z88.5 ALLERGY STATUS TO NARCOTIC AGENT STATUS 08/22/2018 MELY, MANUEL HAND CIGAR MAKING SUPERVISOR Ot Z95.1 PRESENCE OF AORTOCORONARY BYPASS GRAFT 08/22/2018 MELY, MANUEL HAND CIGAR MAKING SUPERVISOR Ot Z96.641 PRESENCE OF RIGHT ARTIFICIAL HIP JOINT 08/22/2018 MELY, MANUEL HAND CIGAR MAKING SUPERVISOR Ot E78.00 PURE HYPERCHOLESTEROLEMIA, UNSPECIFIED 08/22/2018 MELY, MANUEL HAND CIGAR MAKING SUPERVISOR Ot F32.9 MAJOR DEPRESSIVE DISORDER, SINGLE EPISOD 08/22/2018 MELY, MANUEL HAND CIGAR MAKING SUPERVISOR Ot F41.9 ANXIETY DISORDER, UNSPECIFIED 08/22/2018 MELY, MANUEL HAND CIGAR MAKING SUPERVISOR Ot I10 ESSENTIAL (PRIMARY) HYPERTENSION 08/22/2018 MELY, MANUEL HAND CIGAR MAKING SUPERVISOR Ot I25.10 ATHSCL HEART DISEASE OF [place] CORONARY 08/22/2018 MELY, MANUEL HAND CIGAR MAKING SUPERVISOR Ot K21.9 GASTRO-ESOPHAGEAL REFLUX DISEASE WITHOUT 08/22/2018 MELY, MANUEL HAND CIGAR MAKING SUPERVISOR Ot K59.00 CONSTIPATION, UNSPECIFIED 08/22/2018 MELY, MANUEL HAND CIGAR MAKING SUPERVISOR Ot Z79.82 PRODUCT CONTROLLER (CURRENT) USE OF ASPIRIN 08/22/2018 MELY, MANUEL HAND CIGAR MAKING SUPERVISOR Ot Z82.49 FAMILY HX OF ISCHEM HEART DIS AND OTH DI 08/22/2018 MELY, MANUEL HAND CIGAR MAKING SUPERVISOR Ot Z87.440 PERSONAL HISTORY OF URINARY (TRACT) INFE 08/22/2018 MELY, MANUEL HAND CIGAR MAKING SUPERVISOR Ot Z88.5 ALLERGY STATUS TO NARCOTIC AGENT STATUS 08/22/2018 MELY, MANUEL HAND CIGAR MAKING SUPERVISOR Ot Z95.1 PRESENCE OF AORTOCORONARY BYPASS GRAFT 08/22/2018 MELY, MANUEL HAND CIGAR MAKING SUPERVISOR Ot Z96.641 PRESENCE OF RIGHT ARTIFICIAL HIP JOINT 02/09/2019 CARITO DOMINGUEZ, BOB Pierre Ot V72.84 EXAM PRE-OPERATIVE NOS 02/09/2019 WOLF AGUIRREP Ot V76.12 OTH SCREEN MAMMO-MALIGN NEOPLASM OF [place] 02/09/2019 HAFSA AGUIRRENDA HAND CIGAR MAKING SUPERVISOR Ot Z12.31 ENCNTR SCREEN MAMMOGRAM FOR MALIGNANT NE 02/09/2019 CARITO DOMINGUEZ, BOB Pierre Ot V72.84 EXAM PRE-OPERATIVE NOS 02/09/2019 WOLF AGUIRRE HAND CIGAR MAKING SUPERVISOR Ot V76.12 OTH SCREEN MAMMO-MALIGN NEOPLASM OF [place] 02/09/2019 TIMOTHYHAFSA CHANDA HAND CIGAR MAKING SUPERVISOR Ot Z12.31 ENCNTR SCREEN MAMMOGRAM FOR MALIGNANT NE 02/09/2019 MEI HILL MD Ot E78.00 PURE HYPERCHOLESTEROLEMIA, UNSPECIFIED 02/09/2019 MEI HILL MD, Ot F32.9 MAJOR DEPRESSIVE DISORDER, SINGLE EPISOD 02/09/2019 MEI HILL MD, Ot F41.9 ANXIETY DISORDER, UNSPECIFIED 02/09/2019 MEI HILL MD Ot I10 ESSENTIAL (PRIMARY) HYPERTENSION 02/09/2019 MEI HILL MD, Ot I25.10 ATHSCL HEART DISEASE OF [place] CORONARY 02/09/2019 MEI HILL MD Ot K21.9 GASTRO-ESOPHAGEAL REFLUX DISEASE WITHOUT 02/09/2019 MEI HILL MD Ot R06.00 DYSPNEA, UNSPECIFIED 02/09/2019 MEI HILL MD Ot R06.02 SHORTNESS OF BREATH 02/09/2019 MEI HILL MD Ot Z79.82 PRODUCT CONTROLLER (CURRENT) USE OF ASPIRIN 02/09/2019 MEI HILL MD Ot Z82.49 FAMILY HX OF ISCHEM HEART DIS AND OTH DI 02/09/2019 MEI HILL MD Ot Z87.440 PERSONAL HISTORY OF URINARY (TRACT) INFE 02/09/2019 MEI HILL MD, Ot Z88.5 ALLERGY STATUS TO NARCOTIC AGENT STATUS 02/09/2019 MEI HILL MD Ot Z95.1 PRESENCE OF AORTOCORONARY BYPASS GRAFT 02/09/2019 MEI HILL MD Ot Z96.641 PRESENCE OF RIGHT ARTIFICIAL HIP JOINT 02/09/2019 MEI HILL MD Ot Z98.890 OTHER SPECIFIED POSTPROCEDURAL STATES 02/11/2019 MEI HILL MD Ot E78.00 PURE HYPERCHOLESTEROLEMIA, UNSPECIFIED 02/11/2019 MEI HILL MD, Ot F32.9 MAJOR DEPRESSIVE DISORDER, SINGLE EPISOD 02/11/2019 MEI HILL MD, Ot F41.9 ANXIETY DISORDER, UNSPECIFIED 02/11/2019 MEI HILL MD Ot I10 ESSENTIAL (PRIMARY) HYPERTENSION 02/11/2019 MEI HILL MD Ot I25.10 ATHSCL HEART DISEASE OF [place] CORONARY 02/11/2019 MEI HILL MD Ot K21.9 GASTRO-ESOPHAGEAL REFLUX DISEASE WITHOUT 02/11/2019 MEI HILL MD Ot R06.00 DYSPNEA, UNSPECIFIED 02/11/2019 MEI HILL MD, Ot R06.02 SHORTNESS OF BREATH 02/11/2019 MEI HILL MD Ot Z79.82 PRODUCT CONTROLLER (CURRENT) USE OF ASPIRIN 02/11/2019 MEI HILL [...] MD Ot Z98.890 OTHER SPECIFIED POSTPROCEDURAL STATES 02/13/2019 JAGDISH MUNIZ DOI Ot E78.00 PURE HYPERCHOLESTEROLEMIA, UNSPECIFIED 02/13/2019 CRISTY LOCKETT AILEEN Ot E87.1 HYPO-OSMOLALITY AND HYPONATREMIA 02/13/2019 JAGDISH MUNIZ DOI Ot F02.80 DEMENTIA IN OTH DISEASES CLASSD ELSWHR W 02/13/2019 JAGDISH MUNIZ DOI Ot F32.9 MAJOR DEPRESSIVE DISORDER, SINGLE EPISOD 02/13/2019 JAGDISH MUNIZ DOI Ot F41.9 ANXIETY DISORDER, UNSPECIFIED 02/13/2019 JAGDISH MUNIZ DOI Ot G30.9 ALZHEIMER'S DISEASE, UNSPECIFIED 02/13/2019 JAGDISH MUNIZ DOI Ot I11.0 HYPERTENSIVE HEART DISEASE WITH HEART FA 02/13/2019 JAGDISH MUNIZ DOI Ot I25.10 ATHSCL HEART DISEASE OF [place] CORONARY 02/13/2019 CRISTY LOCKETT AILEEN Ot I50.31 ACUTE DIASTOLIC (CONGESTIVE) HEART FAILU 02/13/2019 JAGDISH MUNIZ DOI Ot J18.1 LOBAR PNEUMONIA, UNSPECIFIED ORGANISM 02/13/2019 AILEEN MUNIZ DO Ot J90 PLEURAL EFFUSION, NOT ELSEWHERE CLASSIFI 02/13/2019 JAGDISH MUNIZ DOI Ot K21.9 GASTRO-ESOPHAGEAL REFLUX DISEASE WITHOUT 02/13/2019 JAGDISH MUNIZ DOI Ot L29.9 PRURITUS, UNSPECIFIED 02/13/2019 JAGDISH MUNIZ DOI Ot R09.02 HYPOXEMIA 02/13/2019 CRISTY LOCKETT AILEEN Ot S01.11 2A LACERATION W/O FB OF LEFT EYELID AND PER 02/13/2019 JAGDISH MUNIZ DOI Ot W06.XX XA FALL FROM BED, INITIAL ENCOUNTER 02/13/2019 AILEEN MUNIZ DO Ot Y92.12 2 BEDROOM [address] CARE HOME PLACE 02/13/2019 JAGDISH MUNIZ DOI Ot Z66 DO NOT RESUSCITATE 02/13/2019 AILEEN MUNIZ DO Ot Z95.1 PRESENCE OF AORTOCORONARY BYPASS GRAFT 06/05/2019 DARREN DOMINGUEZ FACC, ALI FACP CCDS Ot I10 ESSENTIAL (PRIMARY) HYPERTENSION 06/05/2019 DARREN DOMINGUEZ FACC, ALI FACP CCDS Ot I25.10 ATHSCL HEART DISEASE OF [place] CORONARY 06/05/2019 DARREN DOMINGUEZ FACC, ALI FACP CCDS Ot I49.8 OTHER SPECIFIED CARDIAC ARRHYTHMIAS 06/05/2019 DARREN DOMINGUEZ FACC, ALI FACP CCDS Ot R00.2 PALPITATIONS 06/05/2019 DARREN DOMINGUEZ FACC, ALI FACP CCDS Ot R53.1 WEAKNESS 06/10/2019 MELANY STOKES MD, Ot D64.9 ANEMIA, UNSPECIFIED 06/10/2019 MELANY STOKES MD, Ot E78.0 0 PURE HYPERCHOLESTEROLEMIA, UNSPECIFIED 06/10/2019 MELANY STOKES MD, Ot F02.8 0 DEMENTIA IN OTH DISEASES CLASSD ELSWHR W 06/10/2019 MELANY STOKES MD, Ot 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 06/10/2019 MELANY STOKES MD, Ot G30.9 ALZHEIMER'S DISEASE, UNSPECIFIED 06/10/2019 MELANY STOKES MD, Ot I08.1 RHEUMATIC DISORDERS OF BOTH MITRAL AND T 06/10/2019 MELANY STOKES MD, Ot I11.0 HYPERTENSIVE HEART DISEASE WITH HEART FA 06/10/2019 MELANY STOKES MD, Ot I21.4 NON-ST ELEVATION (NSTEMI) MYOCARDIAL INF 06/10/2019 MELANY STOKES MD, Ot I25.1 0 ATHSCL HEART DISEASE OF [place] CORONARY 06/10/2019 MELANY STOKES MD, Ot I50.4 1 ACUTE COMBINED SYSTOLIC AND DIASTOLIC (C 06/10/2019 MELANY STOKES MD, Ot J90 PLEURAL EFFUSION, NOT ELSEWHERE CLASSIFI 06/10/2019 MELANY STOKES MD, Ot K21.9 GASTRO-ESOPHAGEAL REFLUX DISEASE WITHOUT 06/10/2019 MELANY STOKES MD, Ot K59.0 9 OTHER CONSTIPATION 06/10/2019 MELANY STOKES MD, Ot M19.9 1 PRIMARY OSTEOARTHRITIS, UNSPECIFIED SITE 06/10/2019 MELANY STOKES MD, Ot R25.1 TREMOR, UNSPECIFIED 06/10/2019 MELANY STOKES MD Ot R53.1 WEAKNESS 06/10/2019 MELANY STOKES MD Ot Z66 DO NOT RESUSCITATE 06/10/2019 MELANY STOKES MD, Ot Z95.1 PRESENCE OF AORTOCORONARY BYPASS GRAFT 06/10/2019 MELANY STOKES MD, Ot 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 00 PURE HYPERCHOLESTEROLEMIA, UNSPECIFIED 01/09/2020 CHANNING ABDI MD Ot F03. 90 UNSPECIFIED DEMENTIA WITHOUT BEHAVIORAL 01/09/2020 CHANNING ABDI MD Ot F32. 9 MAJOR DEPRESSIVE DISORDER, SINGLE EPISOD 01/09/2020 CHANNING ABDI MD Ot F41. 9 ANXIETY DISORDER, UNSPECIFIED 01/09/2020 CHANNING ABDI MD Ot I11. 0 HYPERTENSIVE HEART DISEASE WITH HEART FA 01/09/2020 CHANNING ABDI MD Ot I25. 10 ATHSCL HEART DISEASE OF [place] CORONARY 01/09/2020 CHANNING ABDI MD Ot I48. 91 UNSPECIFIED ATRIAL FIBRILLATION 01/09/2020 CHANNING ABDI MD Ot I50. 43 ACUTE ON CHRONIC COMBINED SYSTOLIC AND D 01/09/2020 CHANNING ABDI MD Ot R06. 02 SHORTNESS OF BREATH 01/09/2020 CHANNING ABDI MD Ot R09. 02 HYPOXEMIA 01/09/2020 CHANNING ABDI MD Ot R79. 89 OTHER SPECIFIED ABNORMAL FINDINGS OF BLO 01/09/2020 CHANNING ABDI MD Ot Z79. 82 [facility] (CURRENT) USE OF ASPIRIN 01/09/2020 CHANNING ABDI MD Ot Z82. 49 FAMILY HX OF ISCHEM HEART DIS AND OTH DI 01/09/2020 CHANNING ABDI MD Ot Z88. 1 ALLERGY STATUS TO OTHER ANTIBIOTIC AGENT 01/09/2020 CHANNING ABDI MD Ot Z88. 5 ALLERGY STATUS TO NARCOTIC AGENT STATUS 01/09/2020 CHANNING ABDI MD Ot Z95. 1 PRESENCE OF AORTOCORONARY BYPASS GRAFT 01/09/2020 CHANNING ABDI MD Ot Z96.643 PRESENCE OF ARTIFICIAL HIP JOINT, BILATE 01/13/2020 CHANNING ABDI MD Ot E78. 00 PURE HYPERCHOLESTEROLEMIA, UNSPECIFIED 01/13/2020 CHANNING ABDI MD Ot F03. 90 UNSPECIFIED DEMENTIA WITHOUT BEHAVIORAL 01/13/2020 CHANNING ABDI MD Ot F32. 9 MAJOR DEPRESSIVE DISORDER, SINGLE EPISOD 01/13/2020 CHANNING ABDI MD Ot F41. 9 ANXIETY DISORDER, UNSPECIFIED 01/13/2020 CHANNING ABDI MD Ot I11. 0 HYPERTENSIVE HEART DISEASE WITH HEART FA 01/13/2020 CHANNING ABDI MD Ot I25. 10 ATHSCL HEART DISEASE OF [place] CORONARY 01/13/2020 CHANNING ABDI MD Ot I48. 91 UNSPECIFIED ATRIAL FIBRILLATION 01/13/2020 CHANNING ABDI MD Ot I50. 43 ACUTE ON CHRONIC COMBINED SYSTOLIC AND D 01/13/2020 CHANNING ABDI MD Ot R06. 02 SHORTNESS OF BREATH 01/13/2020 CHANNING ABDI MD Ot R09. 02 HYPOXEMIA 01/13/2020 CHANNING ABDI MD Ot R79. 89 OTHER SPECIFIED ABNORMAL FINDINGS OF BLO 01/13/2020 CHANNING ABDI MD Ot Z79. 82 [facility] (CURRENT) USE OF ASPIRIN 01/13/2020 CHANNING ABDI MD Ot Z82. 49 FAMILY HX OF ISCHEM HEART DIS AND OTH DI 01/13/2020 CHANNING ABDI MD Ot Z88. 1 ALLERGY STATUS TO OTHER ANTIBIOTIC AGENT 01/13/2020 CHANNING ABDI MD Ot Z88. 5 ALLERGY STATUS TO NARCOTIC AGENT STATUS 01/13/2020 CHANNING ABDI MD Ot Z95. 1 PRESENCE OF AORTOCORONARY BYPASS GRAFT 01/13/2020 CHANNING ABDI MD Ot Z96.643 PRESENCE OF ARTIFICIAL HIP JOINT, BILATE 01/15/2020 CHANNING ABDI MD Ot E78. 00 PURE HYPERCHOLESTEROLEMIA, UNSPECIFIED 01/15/2020 CHANNING ABDI MD Ot F03. 90 UNSPECIFIED DEMENTIA WITHOUT BEHAVIORAL 01/15/2020 CHANNING ABDI MD Ot F32. 9 MAJOR DEPRESSIVE DISORDER, SINGLE EPISOD 01/15/2020 CHANNING ABDI MD Ot F41. 9 ANXIETY DISORDER, UNSPECIFIED 01/15/2020 CHANNING ABDI MD Ot I11. 0 HYPERTENSIVE HEART DISEASE WITH HEART FA 01/15/2020 CHANNING ABDI MD Ot I25. 10 ATHSCL HEART DISEASE OF [place] CORONARY 01/15/2020 CHANNING ABDI MD Ot I48. 91 UNSPECIFIED ATRIAL FIBRILLATION 01/15/2020 CHANNING ABDI MD Ot I50. 43 ACUTE ON CHRONIC COMBINED SYSTOLIC AND D 01/15/2020 CHANNING ABDI MD Ot R06. 02 SHORTNESS OF BREATH 01/15/2020 CHANNING ABDI MD Ot R09. 02 HYPOXEMIA 01/15/2020 CHANNING ABDI MD Ot R79. 89 OTHER SPECIFIED ABNORMAL FINDINGS OF BLO 01/15/2020 CHANNING ABDI MD Ot Z79. 82 [facility] (CURRENT) USE OF ASPIRIN 01/15/2020 CHANNING ABDI MD Ot Z82. 49 FAMILY HX OF ISCHEM HEART DIS AND OTH DI 01/15/2020 CHANNING ABDI MD Ot Z88. 1 ALLERGY STATUS TO OTHER ANTIBIOTIC AGENT 01/15/2020 CHANNING ABDI MD Ot Z88. 5 ALLERGY STATUS TO NARCOTIC AGENT STATUS 01/15/2020 CHANNING ABDI MD Ot Z95. 1 PRESENCE OF AORTOCORONARY BYPASS GRAFT 01/15/2020 CHANNING ABDI MD Ot Z96.643 PRESENCE OF ARTIFICIAL HIP JOINT, BILATE 01/20/2020 CHANNING ABDI MD Ot E78. 00 PURE HYPERCHOLESTEROLEMIA, UNSPECIFIED 01/20/2020 CHANNING ABDI MD Ot F03. 90 UNSPECIFIED DEMENTIA WITHOUT BEHAVIORAL 01/20/2020 CHANNING ABDI MD Ot F32. 9 MAJOR DEPRESSIVE DISORDER, SINGLE EPISOD 01/20/2020 CHANNING ABDI MD Ot F41. 9 ANXIETY DISORDER, UNSPECIFIED 01/20/2020 CHANNING ABDI MD Ot I11. 0 HYPERTENSIVE HEART DISEASE WITH HEART FA 01/20/2020 CHANNING ABDI MD Ot I25. 10 ATHSCL HEART DISEASE OF [place] CORONARY 01/20/2020 CHANNING ABDI MD Ot I48. 91 UNSPECIFIED ATRIAL FIBRILLATION 01/20/2020 CHANNING ABDI MD Ot I50. 43 ACUTE ON CHRONIC COMBINED SYSTOLIC AND D 01/20/2020 CHANNING ABDI MD Ot R06. 02 SHORTNESS OF BREATH 01/20/2020 CHANNING ABDI MD Ot R09. 02 HYPOXEMIA 01/20/2020 CHANNING ABDI MD Ot R79. 89 OTHER SPECIFIED ABNORMAL FINDINGS OF BLO 01/20/2020 CAHNNING ABDI MD Ot Z79. 82 [employer] (CURRENT) USE OF ASPIRIN 01/20/2020 CHANNING ABDI MD Ot Z82. 49 FAMILY HX OF ISCHEM HEART DIS AND OTH DI 01/20/2020 CHANNING ABDI MD Ot Z88. 1 ALLERGY STATUS TO OTHER ANTIBIOTIC AGENT 01/20/2020 CHANNING ABDI MD Ot Z88. 5 ALLERGY STATUS TO NARCOTIC AGENT STATUS 01/20/2020 CHANNING ABDI MD Ot Z95. 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 01/28/2020 CRISTY LOCKETT AILEEN Ot 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 TRICUSPID INSUFFICIENCY 01/28/2020 CRISTY LOCKETT AILEEN Ot I21.4 NON-ST ELEVATION (NSTEMI) MYOCARDIAL INF 01/28/2020 CRISTY LOCKETT AILEEN Ot I22.2 SUBSEQUENT NON-ST ELEVATION (NSTEMI) NYASIA 01/28/2020 CRISTY LOCKETT AILEEN Ot I25.10 ATHSCL HEART DISEASE OF [place] CORONARY 01/28/2020 CRISTY LOCKETT AILEEN Ot I48.91 UNSPECIFIED ATRIAL FIBRILLATION 01/28/2020 CRISTY LOCKETT AILEEN Ot I50.43 ACUTE ON CHRONIC COMBINED SYSTOLIC AND D 01/28/2020 CRISTY LOCKETT AILEEN Ot I65.29 OCCLUSION AND STENOSIS OF UNSPECIFIED CA 01/28/2020 CRISTY LOCKETT AILEEN Ot J18.9 PNEUMONIA, UNSPECIFIED ORGANISM 01/28/2020 CRISTY LOCKETT AILEEN Ot J44.9 CHRONIC OBSTRUCTIVE PULMONARY DISEASE, U 01/28/2020 CRISTY LOCKETT AILEEN Ot J98.11 ATELECTASIS 01/28/2020 CRISTY LOCKETT AILEEN Ot K21.9 GASTRO-ESOPHAGEAL REFLUX DISEASE WITHOUT 01/28/2020 CRISTY LOCKETT AILEEN Ot K59.09 OTHER CONSTIPATION 01/28/2020 CRISTY LOCKETT AILEEN Ot M19.91 PRIMARY OSTEOARTHRITIS, UNSPECIFIED SITE 01/28/2020 CRISTY LOCKETT AILEEN Ot R25.1 TREMOR, UNSPECIFIED 01/28/2020 CRISTY LOCKETT AILEEN Ot Z66 DO NOT RESUSCITATE 01/28/2020 AILEEN MUNIZ DO Ot Z79.02 [facility] (CURRENT) USE OF ANTITHROMBOTI 01/28/2020 AILEEN MUNIZ DO Ot Z79.82 [facility] (CURRENT) USE OF ASPIRIN 01/28/2020 CRISTY LOCKETT AILEEN Ot Z95.1 PRESENCE OF AORTOCORONARY BYPASS GRAFT 01/28/2020 CRISTY LOCKETT AILEEN Ot Z95.5 PRESENCE OF CORONARY ANGIOPLASTY IMPLANT 01/28/2020 JAGDISH MUNIZ DOI Ot D64.9 ANEMIA, UNSPECIFIED 01/28/2020 CRISTY LOCKETT AILEEN Ot E78.00 PURE HYPERCHOLESTEROLEMIA, UNSPECIFIED 01/28/2020 CRISTY LOCKETT AILEEN Ot F03.90 UNSPECIFIED DEMENTIA WITHOUT BEHAVIORAL 01/28/2020 JAGDISH MUNIZ DOI Ot F32.9 MAJOR DEPRESSIVE DISORDER, SINGLE EPISOD 01/28/2020 CRISTY LOCKETT AILEEN Ot 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 01/28/2020 CRISTY LOCKETT AILEEN Ot 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 TRICUSPID INSUFFICIENCY 01/28/2020 CRISTY LOCKETT AILEEN Ot I21.4 NON-ST ELEVATION (NSTEMI) MYOCARDIAL INF 01/28/2020 CRISTY LOCKETT AILEEN Ot I22.2 SUBSEQUENT NON-ST ELEVATION (NSTEMI) NYASIA 01/28/2020 CRISTY LOCKETT AILEEN Ot I25.10 ATHSCL HEART DISEASE OF [place] CORONARY 01/28/2020 CRISTY LOCKETT AILEEN Ot I48.91 UNSPECIFIED ATRIAL FIBRILLATION 01/28/2020 CRISTY LOCKETT AILEEN Ot I50.43 ACUTE ON CHRONIC COMBINED SYSTOLIC AND D 01/28/2020 CRISTY LOCKETT AILEEN Ot I65.29 OCCLUSION AND STENOSIS OF UNSPECIFIED CA 01/28/2020 CRISTY LOCKETT AILEEN Ot J18.9 PNEUMONIA, UNSPECIFIED ORGANISM 01/28/2020 CRISTY LOCKETT AILEEN Ot J44.9 CHRONIC OBSTRUCTIVE PULMONARY DISEASE, U 01/28/2020 CRISTY LOCKETT AILEEN Ot J98.11 ATELECTASIS 01/28/2020 CRISTY LOCKETT AILEEN Ot K21.9 GASTRO-ESOPHAGEAL REFLUX DISEASE WITHOUT 01/28/2020 CRISTY LOCKETT AILEEN Ot K59.09 OTHER CONSTIPATION 01/28/2020 CRISTY LOCKETT AILEEN Ot M19.91 PRIMARY OSTEOARTHRITIS, UNSPECIFIED SITE 01/28/2020 JAGDISH MUNIZ DOI Ot R25.1 TREMOR, UNSPECIFIED 01/28/2020 CRISTY LOCKETT AILEEN Ot Z66 DO NOT RESUSCITATE 01/28/2020 JAGDISH MUNIZ DOI Ot Z79.02 [employer] (CURRENT) USE OF ANTITHROMBOTI 01/28/2020 CRISTY LOCKETT AILEEN Ot Z79.82 [facility] (CURRENT) USE OF ASPIRIN 01/28/2020 CRISTY LOCKETT AILEEN Ot Z95.1 PRESENCE OF AORTOCORONARY BYPASS GRAFT 01/28/2020 JAGDISH MUNIZ DOI Ot Z95.5 PRESENCE OF CORONARY ANGIOPLASTY IMPLANT 01/28/2020 CRISTY LOCKETT AILEEN Ot D64.9 ANEMIA, UNSPECIFIED 01/28/2020 CRISTY LOCKETT AILEEN Ot E78.00 PURE HYPERCHOLESTEROLEMIA, UNSPECIFIED 01/28/2020 CRISTY LOCKETT AILEEN Ot F03.90 UNSPECIFIED DEMENTIA WITHOUT BEHAVIORAL 01/28/2020 CRISTY LOCKETT AILEEN Ot F32.9 MAJOR DEPRESSIVE DISORDER, SINGLE EPISOD 01/28/2020 CRISTY LOCKETT AILEEN Ot 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 01/28/2020 CRISTY LOCKETT AILEEN Ot 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 TRICUSPID INSUFFICIENCY 01/28/2020 CRISTY LOCKETT AILEEN Ot I21.4 NON-ST ELEVATION (NSTEMI) MYOCARDIAL INF 01/28/2020 CRISTY LOCKETT AILEEN Ot I22.2 SUBSEQUENT NON-ST ELEVATION (NSTEMI) NYASIA 01/28/2020 CRISTY LOCKETT AILEEN Ot I25.10 ATHSCL HEART DISEASE OF [place] CORONARY 01/28/2020 CRISTY LOCKETT AILEEN Ot I48.91 UNSPECIFIED ATRIAL FIBRILLATION 01/28/2020 CRISTY LOCKETT AILEEN Ot I50.43 ACUTE ON CHRONIC COMBINED SYSTOLIC AND D 01/28/2020 CRISTY LOCKETT AILEEN Ot I65.29 OCCLUSION AND STENOSIS OF UNSPECIFIED CA 01/28/2020 CRISTY LOCKETT AILEEN Ot J44.9 CHRONIC OBSTRUCTIVE PULMONARY DISEASE, U 01/28/2020 CRISTY LOCKETT AILEEN Ot J90 PLEURAL EFFUSION, NOT ELSEWHERE CLASSIFI 01/28/2020 CRISTY LOCKETT AILEEN Ot J98.11 ATELECTASIS 01/28/2020 CRISTY LOCKETT AILEEN Ot K21.9 GASTRO-ESOPHAGEAL REFLUX DISEASE WITHOUT 01/28/2020 CRISTY LOCKETT AILEEN Ot K59.09 OTHER CONSTIPATION 01/28/2020 MUNIZ DO, AILEEN Ot M19.91 PRIMARY OSTEOARTHRITIS, UNSPECIFIED SITE 01/28/2020 MUNIZ DO, AILEEN Ot R25.1 TREMOR, UNSPECIFIED 01/28/2020 MUNIZ DO, AILEEN Ot Z66 DO NOT RESUSCITATE 01/28/2020 MUNIZ DO AILEEN Ot Z79.02 [employer] (CURRENT) USE OF ANTITHROMBOTI 01/28/2020 MUNIZ DO AILEEN Ot Z79.82 [employer] (CURRENT) USE OF ASPIRIN 01/28/2020 MUNIZ DO AILEEN Ot Z95.1 PRESENCE OF AORTOCORONARY BYPASS GRAFT 01/28/2020 MUNIZ DO, AILEEN Ot Z95.5 PRESENCE OF CORONARY ANGIOPLASTY IMPLANT 02/25/2020 WOLF AGUIRRE Ot Z12.31 ENCNTR SCREEN MAMMOGRAM FOR MALIGNANT NE 02/25/2020 DARREN DOMINGUEZ FACC, ALI FACP CCDS Ot I10 ESSENTIAL (PRIMARY) HYPERTENSION 02/25/2020 DARREN DOMINGUEZ FACC, ALI FACP CCDS Ot I25.10 ATHSCL HEART DISEASE OF [place] CORONARY 02/25/2020 DARREN DOMINGUEZ FACC, ALI FACP CCDS Ot I49.8 OTHER SPECIFIED CARDIAC ARRHYTHMIAS 02/25/2020 DARREN DOMINGUEZ FACC, ALI FACP CCDS Ot R00.2 PALPITATIONS 02/25/2020 DARREN DOMINGUEZ FACC, ALI FACP CCDS Ot R53.1 WEAKNESS 03/26/2020 CHANNING ABDI MD Ot E78. 00 PURE HYPERCHOLESTEROLEMIA, UNSPECIFIED 03/26/2020 JIN DOMINGUEZ, CHANNING J Ot F03. 90 UNSPECIFIED DEMENTIA WITHOUT BEHAVIORAL 03/26/2020 CHANNING ABDI MD J Ot F32. 9 MAJOR DEPRESSIVE DISORDER, SINGLE EPISOD 03/26/2020 GARCIA ABDI MDUS J Ot F41. 9 ANXIETY DISORDER, UNSPECIFIED 03/26/2020 CHANNING ABDI MD Ot I11. 0 HYPERTENSIVE HEART DISEASE WITH HEART FA 03/26/2020 CHANNING ABDI MD J Ot I25. 10 ATHSCL HEART DISEASE OF [place] CORONARY 03/26/2020 CHANNING ABDI MD Ot I48. 91 UNSPECIFIED ATRIAL FIBRILLATION 03/26/2020 CHANNING ABDI MD Ot I50. 43 ACUTE ON CHRONIC COMBINED SYSTOLIC AND D 03/26/2020 CHANNING ABDI MD Ot R06. 02 SHORTNESS OF BREATH 03/26/2020 CHANNING ABDI MD Ot R09. 02 HYPOXEMIA 03/26/2020 CHANNING ABDI MD Ot R79. 89 OTHER SPECIFIED ABNORMAL FINDINGS OF BLO 03/26/2020 CHANNING ABDI MD Ot Z79. 82 [employer] (CURRENT) USE OF ASPIRIN 03/26/2020 CHANNING ABDI MD Ot Z82. 49 FAMILY HX OF ISCHEM HEART DIS AND OTH DI 03/26/2020 CHANNING ABDI MD Ot Z88. 1 ALLERGY STATUS TO OTHER ANTIBIOTIC AGENT 03/26/2020 CHANNING ABDI MD Ot Z88. 5 ALLERGY STATUS TO NARCOTIC AGENT STATUS 03/26/2020 CHANNING ABDI MD Ot Z95. 1 PRESENCE OF AORTOCORONARY BYPASS GRAFT 03/26/2020 CHANNING ABDI MD Ot Z96.643 PRESENCE OF ARTIFICIAL HIP JOINT, BILATE 04/18/2020 WOLF AGUIRRE Ot Z12.31 ENCNTR SCREEN MAMMOGRAM FOR MALIGNANT NE 04/18/2020 DARREN DOMINGUEZ FACC, ALI FACP CCDS Ot I10 ESSENTIAL (PRIMARY) HYPERTENSION 04/18/2020 DARREN DOMINGUEZ FACC, ALI FACP CCDS Ot I25.10 ATHSCL HEART DISEASE OF [place] CORONARY 04/18/2020 DARREN DOMINGUEZ FACC, ALI FACP CCDS Ot I49.8 OTHER SPECIFIED CARDIAC ARRHYTHMIAS 04/18/2020 DARREN DOMINGUEZ FACC, ALI FACP CCDS Ot R00.2 PALPITATIONS 04/18/2020 DARREN DOMINGUEZ FACC, ALI FACP CCDS Ot R53.1 WEAKNESS Procedures Code [place] [address] ROUT INE VENIPUNCTURE 11/20/2012 76741 UA L JUAN DIP 11/20/2012 29646 CMP 11/21/2012 [id number] GF R CALC (RESULT ONLY) 11/21/2012 49349 CBC 11/21/2012 84772 XRAY ABDOMEN, 1 VIEW (KUB) 11/30/2012 68188 ROUT INE VENIPUNCTURE 01/13/2013 37902 LIPI D PANEL 01/13/2013 86410 LACE RATION REPAIR (SPECIFY LOCATION) 02/03/2013 86314 MAMM OGRAM, SCREENING 04/03/2013 45645 UA W / CULTURE IF INDICATED 04/03/2013 G0008 FLU ADMINISTRATION (MEDICARE ONLY) 01/20/2014 01293 ROUT INE VENIPUNCTURE 02/05/2014 84062 CBC 02/05/2014 1916232 GF R CALC (RESULT ONLY) 02/05/2014 61177 CMP 02/05/2014 76381 LIPI D PANEL 02/05/2014 31564 TSH 02/05/2014 48164 KUB 02/23/2014 70500 MAMM OGRAM, SCREENING 04/08/2014 90470 OXIMETRY 10/18/2014 21870 ROUT INE VENIPUNCTURE 02/14/2015 78655 CBC 02/14/2015 [id number] GF R CALC (RESULT ONLY) 02/14/2015 28829 CMP 02/14/2015 93564 LIPI D PANEL 02/14/2015 [id number] RE POSITION LEFT UPPER FEMUR WITH INTRAME 04/28/2016 Results Test Result Range Comp. Metabolic Panel (14) - 07/31/16 12 :39 Glucose, Serum 91 mg/dL 65-99 BUN 18 [...] uIU/mL 0.450-4.500 C-Reactive Protein, Quant - 07/31/16 12: 39 C-Reactive Protein, Quant 3.0 mg/L 0.0- 4.9 Complete blood count (CBC) with automate d white blood cell (WBC) differential - 08/10/16 04:00 Blood leukocytes automated count (number/volume) 7.5 10*3/uL 4.3-11.0 Blood erythrocytes automated count (number/volume) 3.87 10*6/uL 4.35-5.85 Venous blood hemoglobin measurement (mass/volume) 12.2 g/dL 11.5-16.0 Blood hematocrit (volume fraction) 36 % 35-52 Automated erythrocyte mean corpuscular volume 92 [ foz_us] 80-99 Automated erythrocyte mean corpuscular h emoglobin (mass per erythrocyte) 32 pg 25-34 Automated erythrocyte mean corpuscular h emoglobin concentration measurement (mass/volume) 34 g/dL 32-36 Automated erythrocyte distribution width ratio 14. 2 % 10.0- 14.5 Automated blood platelet count (count/volume) 247 10*3/uL [...] 10*3 1.0-4.0 Blood monocytes automated count (number/volume) 0. 9 10*3 0.0-1.0 Automated eosinophil count 0.1 10*3/uL 0 .0-0.3 Automated blood basophil count (count/volume) 0.1 10*3/uL 0.0-0.1 Comprehensive metabolic panel - 08/10/16 04:00 Serum or plasma sodium measurement (moles/volume) 136 mmol/L 135-145 Serum or plasma potassium measurement (moles/volume) 3.3 mmol/L 3.6-5.0 Serum or plasma chloride measurement (moles/volume) 104 mmol/L 98-107 Carbon dioxide 18 mmol/L 21-32 Serum or plasma anion gap determination (moles/volume) 14 mmol/L 5-14 Serum or plasma urea nitrogen measurement (mass/volume ) 11 mg/dL 7-18 Serum or plasma creatinine measurement (mass/volume) 0.77 mg/dL 0.60-1.30 Serum or plasma urea nitrogen/creatinine mass ratio 14 NRG Serum or plasma creatinine measurement w ith calculation of estimated glomerular filtration rate > NRG Serum or plasma glucose measurement (mass/volume) 97 mg/dL 70-105 Serum or plasma calcium measurement (mass/volume) 9.3 mg/dL 8.5-10.1 Serum or plasma total bilirubin measurement (mass/volu me) 0.3 mg/dL 0.1-1.0 Serum or plasma alkaline phosphatase bairon surement (enzymatic activity/volume) 83 U/L 40-136 Serum or plasma aspartate aminotransfera se measurement (enzymatic activity/volume) 20 U/L 5-34 Serum or plasma alanine aminotransferase measurement (enzymatic activity/volume) 13 U/L 0-55 Serum or plasma protein measurement (mass/volume) 6.9 g/dL 6.4-8.2 Serum or plasma albumin measurement (mass/volume) 4.3 g/dL 3.2-4.5 Magnesium - 08/10/16 04:00 Magnesium 2.4 mg/dL 1.8-2.4 Serum or plasma troponin i.cardiac measu rement (mass/volume) - 08/10/16 04:00 Serum or plasma troponin i.cardiac measurement (mass/v olume) < ng/mL <0.30 Serum or plasma amylase measurement (enz ymatic activity/volume) - 08/10/16 04:00 Serum or plasma amylase measurement (enzymatic activit y/volume) 67 U/L 25-125 Lipase - 08/10/16 04:00 Lipase 56 U/L 8-78 Complete urinalysis with reflex to cultu re - 08/10/16 06:05 Urine color determination YELLOW NRG Urine clarity determination CLEAR NR G Urine pH measurement by test strip 8 5-9 Specific gravity of urine by test strip 1.010 1.016-1.022 Urine protein assay by test strip, semi-quantitative NEGATIVE NEGATIVE Urine glucose detection by automated test strip NE GATIVE NEGATIVE Erythrocytes detection in urine sediment by light micr oscopy NEGATIVE NEGATIVE Urine ketones detection by automated test strip NE GATIVE NEGATIVE Urine nitrite detection by test strip NEGATIVE NEGATIVE Urine total bilirubin detection by test strip NEGA TIVE NEGATIVE Urine urobilinogen measurement by automated test strip (mass/volume) NORMAL NORMAL Urine leukocyte esterase detection by dipstick 2+ NEGATIVE Automated urine sediment erythrocyte cou nt by microscopy (number/high power field) NONE NRG Automated urine sediment leukocyte count by microscopy (number/high power field) RARE NRG Bacteria detection in urine sediment by light microsco py NEGATIVE NRG Squamous epithelial cells detection in u rine sediment by light microscopy 2-5 NRG Crystals detection in urine sediment by light microsco py NONE NRG Casts detection in urine sediment by light microscopy NONE NRG Mucus detection in urine sediment by light microscopy SMALL NRG Complete urinalysis with reflex to culture NO NRG Serum or plasma troponin i.cardiac measu rement (mass/volume) - 08/10/16 07:02 Serum or plasma troponin i.cardiac measurement (mass/v olume) < ng/mL <0.30 Urine Culture, Routine - 09/11/16 12:40 Urine Culture, Routine Note Pap Lb, rfx HPV ASCU - 09/25/16 18:28 DIAGNOSIS: Comment Specimen adequacy: Comment Clinician provided ICD10: Comment Performed by: Comment . . Note: Comment . Comment Genital Culture, Routine - 09/25/16 18:2 8 Genital Culture, Routine Note Complete blood count (CBC) with automate d white blood cell (WBC) differential - 03/08/17 16:23 Blood leukocytes automated count (number/volume) 6.6 10*3/uL 4.3-11.0 Blood erythrocytes automated count (number/volume) 4.92 10*6/uL 4.35-5.85 Venous blood hemoglobin measurement (mass/volume) 15.2 g/dL 11.5-16.0 Blood hematocrit (volume fraction) 46 % 35-52 Automated erythrocyte mean corpuscular volume 93 [ foz_us] 80-99 Automated erythrocyte mean corpuscular h emoglobin (mass per erythrocyte) 31 pg 25-34 Automated erythrocyte mean corpuscular h emoglobin concentration measurement (mass/volume) 33 g/dL 32-36 Automated erythrocyte distribution width ratio 13. 6 % 10.0- 14.5 Automated blood platelet count (count/volume) 264 10*3/uL [...] 10*3 1.0-4.0 Blood monocytes automated count (number/volume) 0. 6 10*3 0.0-1.0 Automated eosinophil count 0.0 10*3/uL 0 .0-0.3 Automated blood basophil count (count/volume) 0.0 10*3/uL 0.0-0.1 Comprehensive metabolic panel - 03/08/17 16:23 Serum or plasma sodium measurement (moles/volume) 141 mmol/L 135-145 Serum or plasma potassium measurement (moles/volume) 4.1 mmol/L 3.6-5.0 Serum or plasma chloride measurement (moles/volume) 104 mmol/L 98-107 Carbon dioxide 20 mmol/L 21-32 Serum or plasma anion gap determination (moles/volume) 17 mmol/L 5-14 Serum or plasma urea nitrogen measurement (mass/volume ) 22 mg/dL 7-18 Serum or plasma creatinine measurement (mass/volume) 0.85 mg/dL 0.60-1.30 Serum or plasma urea nitrogen/creatinine mass ratio 26 NRG Serum or plasma creatinine measurement w ith calculation of estimated glomerular filtration rate > NRG Serum or plasma glucose measurement (mass/volume) 74 mg/dL 70-105 Serum or plasma calcium measurement (mass/volume) 9.7 mg/dL 8.5-10.1 Serum or plasma total bilirubin measurement (mass/volu me) 0.9 mg/dL 0.1-1.0 Serum or plasma alkaline phosphatase bairon surement (enzymatic activity/volume) 64 U/L 40-136 Serum or plasma aspartate aminotransfera se measurement (enzymatic activity/volume) 25 U/L 5-34 Serum or plasma alanine aminotransferase measurement (enzymatic activity/volume) 17 U/L 0-55 Serum or plasma protein measurement (mass/volume) 7.3 g/dL 6.4-8.2 Serum or plasma albumin measurement (mass/volume) 4.4 g/dL 3.2-4.5 THYROID STIMULATING HORMONE - 03/08/17 1 6:23 THYROID STIMULATING HORMONE 0.64 u[iU]/mL 0.35-4.94 Complete urinalysis with reflex to cultu re - 07/30/17 18:04 Urine color determination YELLOW NRG Urine clarity determination CLEAR NR G Urine pH measurement by test strip 7 5-9 Specific gravity of urine by test strip 1.005 1.016-1.022 Urine protein assay by test strip, semi-quantitative NEGATIVE NEGATIVE Urine glucose detection by automated test strip NE GATIVE NEGATIVE Erythrocytes detection in urine sediment by light micr oscopy NEGATIVE NEGATIVE Urine ketones detection by automated test strip NE GATIVE NEGATIVE Urine nitrite detection by test strip NEGATIVE NEGATIVE Urine total bilirubin detection by test strip NEGA TIVE NEGATIVE Urine urobilinogen measurement by automated test strip (mass/volume) NORMAL NORMAL Urine leukocyte esterase detection by dipstick 2+ NEGATIVE Automated urine sediment erythrocyte cou nt by microscopy (number/high power field) NONE NRG Automated urine sediment leukocyte count by microscopy (number/high power field) [HPF] NRG Bacteria detection in urine sediment by light microsco py TRACE NRG Squamous epithelial cells detection in u rine sediment by light microscopy RARE NRG Crystals detection in urine sediment by light microsco py NONE NRG Casts detection in urine sediment by light microscopy NONE NRG Mucus detection in urine sediment by light microscopy NEGATIVE NRG Complete urinalysis with reflex to culture NO NRG Complete blood count (CBC) with automate d white blood cell (WBC) differential - 07/30/17 18:43 Blood leukocytes automated count (number/volume) 7.4 10*3/uL 4.3-11.0 Blood erythrocytes automated count (number/volume) 4.49 10*6/uL 4.35-5.85 Venous blood hemoglobin measurement (mass/volume) 13.8 g/dL 11.5-16.0 Blood hematocrit (volume fraction) 41 % 35-52 Automated erythrocyte mean corpuscular volume 91 [ foz_us] 80-99 Automated erythrocyte mean corpuscular h emoglobin (mass per erythrocyte) 31 pg 25-34 Automated erythrocyte mean corpuscular h emoglobin concentration measurement (mass/volume) 34 g/dL 32-36 Automated erythrocyte distribution width ratio 12. 9 % 10.0- 14.5 Automated blood platelet count (count/volume) 252 10*3/uL [...] 10*3 1.0-4.0 Blood monocytes automated count (number/volume) 0. 8 10*3 0.0-1.0 Automated eosinophil count 0.2 10*3/uL 0 .0-0.3 Automated blood basophil count (count/volume) 0.0 10*3/uL 0.0-0.1 Comprehensive metabolic panel - 07/30/17 18:43 Serum or plasma sodium measurement (moles/volume) 135 mmol/L 135-145 Serum or plasma potassium measurement (moles/volume) 4.2 mmol/L 3.6-5.0 Serum or plasma chloride measurement (moles/volume) 98 mmol/L 98-107 Carbon dioxide 28 mmol/L 21-32 Serum or plasma anion gap determination (moles/volume) 9 mmol/L 5-14 Serum or plasma urea nitrogen measurement (mass/volume ) 13 mg/dL 7-18 Serum or plasma creatinine measurement (mass/volume) 0.77 mg/dL 0.60-1.30 Serum or plasma urea nitrogen/creatinine mass ratio 17 NRG Serum or plasma creatinine measurement w ith calculation of estimated glomerular filtration rate > NRG Serum or plasma glucose measurement (mass/volume) 98 mg/dL 70-105 Serum or plasma calcium measurement (mass/volume) 9.5 mg/dL 8.5-10.1 Serum or plasma total bilirubin measurement (mass/volu me) 0.4 mg/dL 0.1-1.0 Serum or plasma alkaline phosphatase bairon surement (enzymatic activity/volume) 102 U/L 40-136 Serum or plasma aspartate aminotransfera se measurement (enzymatic activity/volume) 20 U/L 5-34 Serum or plasma alanine aminotransferase measurement (enzymatic activity/volume) 10 U/L 0-55 Serum or plasma protein measurement (mass/volume) 7.4 g/dL 6.4-8.2 Serum or plasma albumin measurement (mass/volume) 4.3 g/dL 3.2-4.5 Magnesium - 07/30/17 18:43 Magnesium 2.2 mg/dL 1.8-2.4 THYROID STIMULATING HORMONE - 07/30/17 1 8:43 THYROID STIMULATING HORMONE 1.19 u[iU]/mL 0.35-4.94 Complete blood count (CBC) with automate d white blood cell (WBC) differential - 08/20/18 13:05 Blood leukocytes automated count (number/volume) 7.5 10*3/uL 4.3-11.0 Blood erythrocytes automated count (number/volume) 4.29 10*6/uL 4.35-5.85 Venous blood hemoglobin measurement (mass/volume) 13.2 g/dL 11.5-16.0 Blood hematocrit (volume fraction) 38 % 35-52 Automated erythrocyte mean corpuscular volume 89 [ foz_us] 80-99 Automated erythrocyte mean corpuscular h emoglobin (mass per erythrocyte) 31 pg 25-34 Automated erythrocyte mean corpuscular h emoglobin concentration measurement (mass/volume) 35 g/dL 32-36 Automated erythrocyte distribution width ratio 14. 1 % 10.0- 14.5 Automated blood platelet count (count/volume) 265 10*3/uL [...] 10*3 1.0-4.0 Blood monocytes automated count (number/volume) 0. 9 10*3 0.0-1.0 Automated eosinophil count 0.0 10*3/uL 0 .0-0.3 Automated blood basophil count (count/volume) 0.0 10*3/uL 0.0-0.1 Comprehensive metabolic panel - 08/20/18 13:05 Serum or plasma sodium measurement (moles/volume) 134 mmol/L 135-145 Serum or plasma potassium measurement (moles/volume) 4.0 mmol/L 3.6-5.0 Serum or plasma chloride measurement (moles/volume) 103 mmol/L 98-107 Carbon dioxide 21 mmol/L 21-32 Serum or plasma anion gap determination (moles/volume) 10 mmol/L 5-14 Serum or plasma urea nitrogen measurement (mass/volume ) 11 mg/dL 7-18 Serum or plasma creatinine measurement (mass/volume) 0.69 mg/dL 0.60-1.30 Serum or plasma urea nitrogen/creatinine mass ratio 16 NRG Serum or plasma creatinine measurement w ith calculation of estimated glomerular filtration rate > NRG Serum or plasma glucose measurement (mass/volume) 102 mg/dL 70-105 Serum or plasma calcium measurement (mass/volume) 9.7 mg/dL 8.5-10.1 Serum or plasma total bilirubin measurement (mass/volu me) 0.4 mg/dL 0.1-1.0 Serum or plasma alkaline phosphatase bairon surement (enzymatic activity/volume) 77 U/L 40-136 Serum or plasma aspartate aminotransfera se measurement (enzymatic activity/volume) 19 U/L 5-34 Serum or plasma alanine aminotransferase measurement (enzymatic activity/volume) 8 U/L 0-55 Serum or plasma protein measurement (mass/volume) 7.5 g/dL 6.4-8.2 Serum or plasma albumin measurement (mass/volume) 4.5 g/dL 3.2-4.5 CALCIUM CORRECTED 9.3 mg/dL 8.5-10.1 Complete urinalysis with reflex to cultu re - 08/20/18 14:05 Urine color determination YELLOW NRG Urine clarity determination CLEAR NR G Urine pH measurement by test strip 6.5 5-9 Specific gravity of urine by test strip 1.010 1.016-1.022 Urine protein assay by test strip, semi-quantitative NEGATIVE NEGATIVE Urine glucose detection by automated test strip NE GATIVE NEGATIVE Erythrocytes detection in urine sediment by light micr oscopy NEGATIVE NEGATIVE Urine ketones detection by automated test strip NE GATIVE NEGATIVE Urine nitrite detection by test strip NEGATIVE NEGATIVE Urine total bilirubin detection by test strip NEGA TIVE NEGATIVE Urine urobilinogen measurement by automated test strip (mass/volume) NORMAL NORMAL Urine leukocyte esterase detection by dipstick NEG ATIVE NEGATIVE Automated urine sediment erythrocyte cou nt by microscopy (number/high power field) NONE NRG Automated urine sediment leukocyte count by microscopy (number/high power field) NONE NRG Bacteria detection in urine sediment by light microsco py NEGATIVE NRG Squamous epithelial cells detection in u rine sediment by light microscopy RARE NRG Crystals detection in urine sediment by light microsco py NONE NRG Casts detection in urine sediment by light microscopy NONE NRG Mucus detection in urine sediment by light microscopy NEGATIVE NRG Complete urinalysis with reflex to culture NO NRG Influenza virus A and B antigen detectio n - 02/09/19 03:05 FLU RESULT NEGATIVE FOR INFLUENZA A AND B ANTIGENS BY IA NRG Complete urinalysis with reflex to cultu re - 02/11/19 14:00 Urine color determination YELLOW NRG Urine clarity determination SLIGHTLY CLOUDY NRG Urine pH measurement by test strip 7 5-9 Specific gravity of urine by test strip 1.015 1.016-1.022 Urine protein assay by test strip, semi-quantitative 1+ NEGATIVE Urine glucose detection by automated test strip NE GATIVE NEGATIVE Erythrocytes detection in urine sediment by light micr oscopy NEGATIVE NEGATIVE Urine ketones detection by automated test strip 1+ NEGATIVE Urine nitrite detection by test strip NEGATIVE NEGATIVE Urine total bilirubin detection by test strip NEGA TIVE NEGATIVE Urine urobilinogen measurement by automated test strip (mass/volume) NORMAL NORMAL Urine leukocyte esterase detection by dipstick NEG ATIVE NEGATIVE Automated urine sediment erythrocyte cou nt by microscopy (number/high power field) RARE NRG Automated urine sediment leukocyte count by microscopy (number/high power field) NONE NRG Squamous epithelial cells detection in u rine sediment by light microscopy RARE NRG Crystals detection in urine sediment by light microsco py NONE NRG Casts detection in urine sediment by light microscopy PRESENT NRG Mucus detection in urine sediment by light microscopy SMALL NRG Complete urinalysis with reflex to culture NO NRG Hyaline casts detection in urine sediment by light chaim roscopy RARE NRG Complete blood count (CBC) with automate d white blood cell (WBC) differential - 02/11/19 14:07 Blood leukocytes automated count (number/volume) 15.7 10*3/uL 4.3-11.0 Blood erythrocytes automated count (number/volume) 3.83 10*6/uL 4.35-5.85 Venous blood hemoglobin measurement (mass/volume) 11.2 g/dL 11.5-16.0 Blood hematocrit (volume fraction) 31 % 35-52 Automated erythrocyte mean corpuscular volume 82 [ foz_us] 80-99 Automated erythrocyte mean corpuscular h emoglobin (mass per erythrocyte) 29 pg 25-34 Automated erythrocyte mean corpuscular h emoglobin concentration measurement (mass/volume) 36 g/dL 32-36 Automated erythrocyte distribution width ratio 13. 2 % 10.0- 14.5 Automated blood platelet count (count/volume) 292 10*3/uL [...] 10*3 1.0-4.0 Blood monocytes automated count (number/volume) 1. 7 10*3 0.0-1.0 Automated eosinophil count 0.0 10*3/uL 0 .0-0.3 Automated blood basophil count (count/volume) 0.0 10*3/uL 0.0-0.1 Comprehensive metabolic panel - 02/11/19 14:07 Serum or plasma sodium measurement (moles/volume) 113 mmol/L 135-145 Serum or plasma potassium measurement (moles/volume) 4.2 mmol/L 3.6-5.0 Serum or plasma chloride measurement (moles/volume) 82 mmol/L 98-107 Carbon dioxide 24 mmol/L 21-32 Serum or plasma anion gap determination (moles/volume) 7 mmol/L 5-14 Serum or plasma urea nitrogen measurement (mass/volume ) 10 mg/dL 7-18 Serum or plasma creatinine measurement (mass/volume) 0.62 mg/dL 0.60-1.30 Serum or plasma urea nitrogen/creatinine mass ratio 16 NRG Serum or plasma creatinine measurement w ith calculation of estimated glomerular filtration rate > NRG Serum or plasma glucose measurement (mass/volume) 120 mg/dL 70-105 Serum or plasma calcium measurement (mass/volume) 8.4 mg/dL 8.5-10.1 Serum or plasma total bilirubin measurement (mass/volu me) 0.7 mg/dL 0.1-1.0 Serum or plasma alkaline phosphatase bairon surement (enzymatic activity/volume) 93 U/L 40-136 Serum or plasma aspartate aminotransfera se measurement (enzymatic activity/volume) 24 U/L 5-34 Serum or plasma alanine aminotransferase measurement (enzymatic activity/volume) 10 U/L 0-55 Serum or plasma protein measurement (mass/volume) 6.4 g/dL 6.4-8.2 Serum or plasma albumin measurement (mass/volume) 3.6 g/dL 3.2-4.5 CALCIUM CORRECTED 8.7 mg/dL 8.5-10.1 Serum or plasma C reactive protein measu rement (mass/volume) - 02/11/19 14:07 Serum or plasma C reactive protein measurement (mass/v olume) 6.00 mg/dL 0.00-0.50 Blood manual differential performed dete ction - 02/11/19 14:07 Blood monocytes/100 leukocytes 6 % NRG Manual blood segmented neutrophils/100 leukocytes 84 % NRG Blood band neutrophils/100 leukocytes 2 % NRG Manual blood lymphocytes/100 leukocytes 8 % NRG Manual eosinophils/100 leukocytes in nose 0 % NRG Manual blood basophils/100 leukocytes 0 % NRG Blood erythrocyte morphology finding identification NORMAL NRG Serum or plasma lithium measurement (mol es/volume) - 02/11/19 14:07 BNP level 932.8 pg/mL <100.0 Automated blood complete blood count (he mogram) panel - 02/12/19 08:52 Blood leukocytes automated count (number/volume) 7.5 10*3/uL 4.3-11.0 Blood erythrocytes automated count (number/volume) 3.85 10*6/uL 4.35-5.85 Venous blood hemoglobin measurement (mass/volume) 11.1 g/dL 11.5-16.0 Blood hematocrit (volume fraction) 32 % 35-52 Automated erythrocyte mean corpuscular volume 82 [ foz_us] 80-99 Automated erythrocyte mean corpuscular h emoglobin (mass per erythrocyte) 29 pg 25-34 Automated erythrocyte mean corpuscular h emoglobin concentration measurement (mass/volume) 35 g/dL 32-36 Automated erythrocyte distribution width ratio 13. 2 % 10.0- 14.5 Automated blood platelet count (count/volume) 279 10*3/uL 130-400 Automated blood platelet mean volume measurement 10.6 [foz_us] 7.4-10.4 Comprehensive metabolic panel - 02/12/19 08:52 Serum or plasma sodium measurement (moles/volume) 120 mmol/L 135-145 Serum or plasma potassium measurement (moles/volume) 3.3 mmol/L 3.6-5.0 Serum or plasma chloride measurement (moles/volume) 87 mmol/L 98-107 Carbon dioxide 24 mmol/L 21-32 Serum or plasma anion gap determination (moles/volume) 9 mmol/L 5-14 Serum or plasma urea nitrogen measurement (mass/volume ) 7 mg/dL 7-18 Serum or plasma creatinine measurement (mass/volume) 0.65 mg/dL 0.60-1.30 Serum or plasma urea nitrogen/creatinine mass ratio 11 NRG Serum or plasma creatinine measurement w ith calculation of estimated glomerular filtration rate > NRG Serum or plasma glucose measurement (mass/volume) 95 mg/dL 70-105 Serum or plasma calcium measurement (mass/volume) 8.3 mg/dL 8.5-10.1 Serum or plasma total bilirubin measurement (mass/volu me) 0.6 mg/dL 0.1-1.0 Serum or plasma alkaline phosphatase bairon surement (enzymatic activity/volume) 85 U/L 40-136 Serum or plasma aspartate aminotransfera se measurement (enzymatic activity/volume) 17 U/L 5-34 Serum or plasma alanine aminotransferase measurement (enzymatic activity/volume) 8 U/L 0-55 Serum or plasma protein measurement (mass/volume) 6.1 g/dL 6.4-8.2 Serum or plasma albumin measurement (mass/volume) 3.4 g/dL 3.2-4.5 CALCIUM CORRECTED 8.8 mg/dL 8.5-10.1 Serum or plasma phosphate measurement (m ass/volume) - 02/12/19 08:52 Serum or plasma phosphate measurement (mass/volume) 2.7 mg/dL 2.3-4.7 Magnesium - 02/12/19 08:52 Magnesium 1.9 mg/dL 1.8-2.4 Serum or plasma lithium measurement (mol es/volume) - 02/12/19 08:52 BNP level 479.1 pg/mL <100.0 Complete blood count (CBC) with automate d white blood cell (WBC) differential - 02/13/19 08:35 Blood leukocytes automated count (number/volume) 5.9 10*3/uL 4.3-11.0 Blood erythrocytes automated count (number/volume) 3.64 10*6/uL 4.35-5.85 Venous blood hemoglobin measurement (mass/volume) 10.6 g/dL 11.5-16.0 Blood hematocrit (volume fraction) 30 % 35-52 Automated erythrocyte mean corpuscular volume 84 [ foz_us] 80-99 Automated erythrocyte mean corpuscular h emoglobin (mass per erythrocyte) 29 pg 25-34 Automated erythrocyte mean corpuscular h emoglobin concentration measurement (mass/volume) 35 g/dL 32-36 Automated erythrocyte distribution width ratio 14. 0 % 10.0- 14.5 Automated blood platelet count (count/volume) 300 10*3/uL 130-400 Automated blood platelet mean volume measurement 9.9 [foz_us] 7.4-10.4 Automated blood neutrophils/100 leukocytes 54 % 42-75 Automated blood lymphocytes/100 leukocytes 18 % 12-44 Blood monocytes/100 leukocytes 26 % 0-12 Automated blood eosinophils/100 leukocytes 2 % 0-10 Automated blood basophils/100 leukocytes 1 % 0-10 Blood neutrophils automated count (number/volume) 3.2 10*3 1.8-7.8 Blood lymphocytes automated count (number/volume) 1.1 10*3 1.0-4.0 Blood monocytes automated count (number/volume) 1. 5 10*3 0.0-1.0 Automated eosinophil count 0.1 10*3/uL 0 .0-0.3 Automated blood basophil count (count/volume) 0.0 10*3/uL 0.0-0.1 Serum or plasma phosphate measurement (m ass/volume) - 02/13/19 08:35 Serum or plasma phosphate measurement (mass/volume) 2.7 mg/dL 2.3-4.7 Comprehensive metabolic panel - 02/13/19 08:35 Serum or plasma sodium measurement (moles/volume) 127 mmol/L 135-145 Serum or plasma potassium measurement (moles/volume) 4.4 mmol/L 3.6-5.0 Serum or plasma chloride measurement (moles/volume) 95 mmol/L 98-107 Carbon dioxide 23 mmol/L 21-32 Serum or plasma anion gap determination (moles/volume) 9 mmol/L 5-14 Serum or plasma urea nitrogen measurement (mass/volume ) 11 mg/dL 7-18 Serum or plasma creatinine measurement (mass/volume) 0.70 mg/dL 0.60-1.30 Serum or plasma urea nitrogen/creatinine mass ratio 16 NRG Serum or plasma creatinine measurement w ith calculation of estimated glomerular filtration rate > NRG Serum or plasma glucose measurement (mass/volume) 101 mg/dL 70-105 Serum or plasma calcium measurement (mass/volume) 8.5 mg/dL 8.5-10.1 Serum or plasma total bilirubin measurement (mass/volu me) 0.5 mg/dL 0.1-1.0 Serum or plasma alkaline phosphatase bairon surement (enzymatic activity/volume) 82 U/L 40-136 Serum or plasma aspartate aminotransfera se measurement (enzymatic activity/volume) 18 U/L 5-34 Serum or plasma alanine aminotransferase measurement (enzymatic activity/volume) 10 U/L 0-55 Serum or plasma protein measurement (mass/volume) 6.2 g/dL 6.4-8.2 Serum or plasma albumin measurement (mass/volume) 3.5 g/dL 3.2-4.5 CALCIUM CORRECTED 8.9 mg/dL 8.5-10.1 Magnesium - 02/13/19 08:35 Magnesium 2.1 mg/dL 1.8-2.4 Complete blood count (CBC) with automate d white blood cell (WBC) differential - 06/06/19 13:11 Blood leukocytes automated count (number/volume) 8.5 10*3/uL 4.3-11.0 Blood erythrocytes automated count (number/volume) 3.86 10*6/uL 4.35-5.85 Venous blood hemoglobin measurement (mass/volume) 11.0 g/dL 11.5-16.0 Blood hematocrit (volume fraction) 34 % 35-52 Automated erythrocyte mean corpuscular volume 88 [ foz_us] 80-99 Automated erythrocyte mean corpuscular h emoglobin (mass per erythrocyte) 28 pg 25-34 Automated erythrocyte mean corpuscular h emoglobin concentration measurement (mass/volume) 32 g/dL 32-36 Automated erythrocyte distribution width ratio 15. 9 % 10.0- 14.5 Automated blood platelet count (count/volume) 320 10*3/uL 130-400 Automated blood platelet mean volume measurement 11.1 [foz_us] 7.4-10.4 Automated blood neutrophils/100 leukocytes 78 % 42-75 Automated blood lymphocytes/100 leukocytes 9 % 12-44 Blood monocytes/100 leukocytes 13 % 0-12 Automated blood eosinophils/100 leukocytes 0 % 0-10 Automated blood basophils/100 leukocytes 0 % 0-10 Blood neutrophils automated count (number/volume) 6.6 10*3 1.8-7.8 Blood lymphocytes automated count (number/volume) 0.8 10*3 1.0-4.0 Blood monocytes automated count (number/volume) 1. 1 10*3 0.0-1.0 Automated eosinophil count 0.0 10*3/uL 0 .0-0.3 Automated blood basophil count (count/volume) 0.0 10*3/uL 0.0-0.1 Comprehensive metabolic panel - 06/06/19 13:11 Serum or plasma sodium measurement (moles/volume) 133 mmol/L 135-145 Serum or plasma potassium measurement (moles/volume) 4.6 mmol/L 3.6-5.0 Serum or plasma chloride measurement (moles/volume) 101 mmol/L 98-107 Carbon dioxide 21 mmol/L 21-32 Serum or plasma anion gap determination (moles/volume) 11 mmol/L 5-14 Serum or plasma urea nitrogen measurement (mass/volume ) 15 mg/dL 7-18 Serum or plasma creatinine measurement (mass/volume) 0.74 mg/dL 0.60-1.30 Serum or plasma urea nitrogen/creatinine mass ratio 20 NRG Serum or plasma creatinine measurement w ith calculation of estimated glomerular filtration rate > NRG Serum or plasma glucose measurement (mass/volume) 95 mg/dL 70-105 Serum or plasma calcium measurement (mass/volume) 8.9 mg/dL 8.5-10.1 Serum or plasma total bilirubin measurement (mass/volu me) 0.3 mg/dL 0.1-1.0 Serum or plasma alkaline phosphatase bairon surement (enzymatic activity/volume) 99 U/L 40-136 Serum or plasma aspartate aminotransfera se measurement (enzymatic activity/volume) 32 U/L 5-34 Serum or plasma alanine aminotransferase measurement (enzymatic activity/volume) 21 U/L 0-55 Serum or plasma protein measurement (mass/volume) 6.3 g/dL 6.4-8.2 Serum or plasma albumin measurement (mass/volume) 3.7 g/dL 3.2-4.5 CALCIUM CORRECTED 9.1 mg/dL 8.5-10.1 Magnesium - 06/06/19 13:11 Magnesium 2.1 mg/dL 1.8-2.4 Serum or plasma troponin i.cardiac measu rement (mass/volume) - 06/06/19 13:11 Serum or plasma troponin i.cardiac measurement (mass/v olume) 1.146 ng/mL <0.028 THYROID STIMULATING HORMONE - 06/06/19 1 3:11 THYROID STIMULATING HORMONE 1.93 u[iU]/mL 0.35-4.94 Serum or plasma thyroxine (T4) free pawel urement (mass/volume) - 06/06/19 13:11 Serum or plasma thyroxine (T4) free measurement (mass/ volume) 0.99 ng/dL 0.70-1.48 Serum or plasma lithium measurement (mol es/volume) - 06/06/19 13:11 BNP PT 3144.2 pg/mL <100.0 Complete urinalysis with reflex to cultu re - 06/06/19 13:57 Urine color determination YELLOW NRG Urine clarity determination CLEAR NR G Urine pH measurement by test strip 6 5-9 Specific gravity of urine by test strip 1.020 1.016-1.022 Urine protein assay by test strip, semi-quantitative 1+ NEGATIVE Urine glucose detection by automated test strip NE GATIVE NEGATIVE Erythrocytes detection in urine sediment by light micr oscopy NEGATIVE NEGATIVE Urine ketones detection by automated test strip NE GATIVE NEGATIVE Urine nitrite detection by test strip NEGATIVE NEGATIVE Urine total bilirubin detection by test strip NEGA TIVE NEGATIVE Urine urobilinogen measurement by automated test strip (mass/volume) NORMAL NORMAL Urine leukocyte esterase detection by dipstick 2+ NEGATIVE Automated urine sediment erythrocyte cou nt by microscopy (number/high power field) RARE NRG Automated urine sediment leukocyte count by microscopy (number/high power field) [HPF] NRG Bacteria detection in urine sediment by light microsco py TRACE NRG Squamous epithelial cells detection in u rine sediment by light microscopy 5-10 NRG Crystals detection in urine sediment by light microsco py NONE NRG Casts detection in urine sediment by light microscopy PRESENT NRG Mucus detection in urine sediment by light microscopy NEGATIVE NRG Complete urinalysis with reflex to culture YES NRG Hyaline casts detection in urine sediment by light chaim roscopy RARE NRG Bacterial urine culture - 06/06/19 13:57 Bacterial urine culture [id number] NRG COLONY COUNT 10,000 CFU/ML NRG FTX;REPORTABLE SUSCEPTIBILITY REPORTED 06/09 11:20 NRG FREE TEXT ENTRY 2 (PROTEUS SPECIES NOT INDICATED O N NRG FREE TEXT ENTRY 3 FINAL REPORT OF 06/09) NRG Dirithromycin susceptibility test by dis k diffusion - 06/06/19 13:57 Gentamicin susceptibility test by minimum inhibitory c oncentration <= NRG Trimethoprim/sulfamethoxazole susceptibi lity test by minimum inhibitoryconcentration <= NRG Levofloxacin susceptibility test by minimum inhibitory concentration <= NRG Ampicillin susceptibility test by minimum inhibitory c oncentration <= NRG Cefazolin susceptibility test by minimum inhibitory co ncentration 2 NRG Ceftriaxone susceptibility test by minimum inhibitory concentration <= NRG Ciprofloxacin susceptibility test by minimum inhibitor y concentration <= NRG Meropenem susceptibility test by minimum inhibitory co ncentration <= NRG Nitrofurantoin susceptibility test by mi nimum inhibitory concentration <= NRG Amoxicillin and clavulanate potassium susc CHAIM <= NRG Dirithromycin susceptibility test by dis k diffusion - 06/06/19 13:57 Gentamicin susceptibility test by minimum inhibitory c oncentration <= NRG Levofloxacin susceptibility test by minimum inhibitory concentration <= NRG Tobramycin susceptibility test by minimum inhibitory c oncentration <= NRG Piperacillin/tazobactam susceptibility t est by minimum inhibitory concentration = NRG Ciprofloxacin susceptibility test by minimum inhibitor y concentration <= NRG Meropenem susceptibility test by minimum inhibitory co ncentration <= NRG Aztreonam susceptibility test by minimum inhibitory co ncentration 8 NRG Cefepime susceptibility test by minimum inhibitory con centration 2 NRG Imipenem susceptibility test by minimum inhibitory con centration 2 NRG Ceftazidime susceptibility test by minimum inhibitory concentration <= NRG Complete blood count (CBC) with automate d white blood cell (WBC) differential - 06/07/19 02:32 Blood leukocytes automated count (number/volume) 8.4 10*3/uL 4.3-11.0 Blood erythrocytes automated count (number/volume) 4.01 10*6/uL 4.35-5.85 Venous blood hemoglobin measurement (mass/volume) 11.4 g/dL 11.5-16.0 Blood hematocrit (volume fraction) 35 % 35-52 Automated erythrocyte mean corpuscular volume 87 [ foz_us] 80-99 Automated erythrocyte mean corpuscular h emoglobin (mass per erythrocyte) 28 pg 25-34 Automated erythrocyte mean corpuscular h emoglobin concentration measurement (mass/volume) 33 g/dL 32-36 Automated erythrocyte distribution width ratio 15. 5 % 10.0- 14.5 Automated blood platelet count (count/volume) 310 10*3/uL 130-400 Automated blood platelet mean volume measurement 11.4 [foz_us] 7.4-10.4 Automated blood neutrophils/100 leukocytes 60 % 42-75 Automated blood lymphocytes/100 leukocytes 25 % 12-44 Blood monocytes/100 leukocytes 14 % 0-12 Automated blood eosinophils/100 leukocytes 1 % 0-10 Automated blood basophils/100 leukocytes 0 % 0-10 Blood neutrophils automated count (number/volume) 5.0 10*3 1.8-7.8 Blood lymphocytes automated count (number/volume) 2.1 10*3 1.0-4.0 Blood monocytes automated count (number/volume) 1. 1 10*3 0.0-1.0 Automated eosinophil count 0.1 10*3/uL 0 .0-0.3 Automated blood basophil count (count/volume) 0.0 10*3/uL 0.0-0.1 Comprehensive metabolic panel - 06/07/19 02:32 Serum or plasma sodium measurement (moles/volume) 137 mmol/L 135-145 Serum or plasma potassium measurement (moles/volume) 3.7 mmol/L 3.6-5.0 Serum or plasma chloride measurement (moles/volume) 99 mmol/L 98-107 Carbon dioxide 24 mmol/L 21-32 Serum or plasma anion gap determination (moles/volume) 14 mmol/L 5-14 Serum or plasma urea nitrogen measurement (mass/volume ) 19 mg/dL 7-18 Serum or plasma creatinine measurement (mass/volume) 0.83 mg/dL 0.60-1.30 Serum or plasma urea nitrogen/creatinine mass ratio 23 NRG Serum or plasma creatinine measurement w ith calculation of estimated glomerular filtration rate > NRG Serum or plasma glucose measurement (mass/volume) 89 mg/dL 70-105 Serum or plasma calcium measurement (mass/volume) 8.8 mg/dL 8.5-10.1 Serum or plasma total bilirubin measurement (mass/volu me) 0.4 mg/dL 0.1-1.0 Serum or plasma alkaline phosphatase bairon surement (enzymatic activity/volume) 90 U/L 40-136 Serum or plasma aspartate aminotransfera se measurement (enzymatic activity/volume) 36 U/L 5-34 Serum or plasma alanine aminotransferase measurement (enzymatic activity/volume) 22 U/L 0-55 Serum or plasma protein measurement (mass/volume) 6.3 g/dL 6.4-8.2 Serum or plasma albumin measurement (mass/volume) 3.7 g/dL 3.2-4.5 CALCIUM CORRECTED 9.0 mg/dL 8.5-10.1 Automated blood complete blood count (he mogram) panel - 06/08/19 02:55 Blood leukocytes automated count (number/volume) 8.1 10*3/uL 4.3-11.0 Blood erythrocytes automated count (number/volume) 4.08 10*6/uL 4.35-5.85 Venous blood hemoglobin measurement (mass/volume) 11.6 g/dL 11.5-16.0 Blood hematocrit (volume fraction) 36 % 35-52 Automated erythrocyte mean corpuscular volume 87 [ foz_us] 80-99 Automated erythrocyte mean corpuscular h emoglobin (mass per erythrocyte) 28 pg 25-34 Automated erythrocyte mean corpuscular h emoglobin concentration measurement (mass/volume) 33 g/dL 32-36 Automated erythrocyte distribution width ratio 15. 8 % 10.0- 14.5 Automated blood platelet count (count/volume) 317 10*3/uL 130-400 Automated blood platelet mean volume measurement 11.5 [foz_us] 7.4-10.4 Whole blood basic metabolic panel - 07/20 02:55 Serum or plasma sodium measurement (moles/volume) 134 mmol/L 135-145 Serum or plasma potassium measurement (moles/volume) 4.5 mmol/L 3.6-5.0 Serum or plasma chloride measurement (moles/volume) 97 mmol/L 98-107 Carbon dioxide 25 mmol/L 21-32 Serum or plasma anion gap determination (moles/volume) 12 mmol/L 5-14 Serum or plasma urea nitrogen measurement (mass/volume ) 23 mg/dL 7-18 Serum or plasma creatinine measurement (mass/volume) 0.82 mg/dL 0.60-1.30 Serum or plasma urea nitrogen/creatinine mass ratio 28 NRG Serum or plasma creatinine measurement w ith calculation of estimated glomerular filtration rate > NRG Serum or plasma glucose measurement (mass/volume) 98 mg/dL 70-105 Serum or plasma calcium measurement (mass/volume) 9.0 mg/dL 8.5-10.1 Serum or plasma phosphate measurement (m ass/volume) - 06/08/19 02:55 Serum or plasma phosphate measurement (mass/volume) 4.6 mg/dL 2.3-4.7 Magnesium - 06/08/19 02:55 Magnesium 2.1 mg/dL 1.8-2.4 Lipid 1996 panel - 06/08/19 02:55 Serum or plasma triglyceride measurement (mass/volume) 114 mg/dL <150 Serum or plasma cholesterol measurement (mass/volume) 162 mg/dL < 200 Serum or plasma cholesterol in HDL measurement (mass/v olume) 55 mg/dL 40-60 Cholesterol in LDL [mass/volume] in serum or plasma by direct assay 97 mg/dL 1-129 Serum or plasma cholesterol in VLDL measurement (mass/ volume) 23 mg/dL 5-40 Serum or plasma lithium measurement (mol es/volume) - 06/08/19 02:55 BNP PT 3254.6 pg/mL <100.0 Automated blood complete blood count (he mogram) panel - 06/09/19 05:30 Blood leukocytes automated count (number/volume) 7.9 10*3/uL 4.3-11.0 Blood erythrocytes automated count (number/volume) 4.60 10*6/uL 4.35-5.85 Venous blood hemoglobin measurement (mass/volume) 13.0 g/dL 11.5-16.0 Blood hematocrit (volume fraction) 40 % 35-52 Automated erythrocyte mean corpuscular volume 87 [ foz_us] 80-99 Automated erythrocyte mean corpuscular h emoglobin (mass per erythrocyte) 28 pg 25-34 Automated erythrocyte mean corpuscular h emoglobin concentration measurement (mass/volume) 33 g/dL 32-36 Automated erythrocyte distribution width ratio 15. 8 % 10.0- 14.5 Automated blood platelet count (count/volume) 333 10*3/uL 130-400 Automated blood platelet mean volume measurement 11.5 [foz_us] 7.4-10.4 Whole blood basic metabolic panel - 08/20 05:40 Serum or plasma sodium measurement (moles/volume) 137 mmol/L 135-145 Serum or plasma potassium measurement (moles/volume) 4.6 mmol/L 3.6-5.0 Serum or plasma chloride measurement (moles/volume) 99 mmol/L 98-107 Carbon dioxide 25 mmol/L 21-32 Serum or plasma anion gap determination (moles/volume) 13 mmol/L 5-14 Serum or plasma urea nitrogen measurement (mass/volume ) 22 mg/dL 7-18 Serum or plasma creatinine measurement (mass/volume) 0.86 mg/dL 0.60-1.30 Serum or plasma urea nitrogen/creatinine mass ratio 26 NRG Serum or plasma creatinine measurement w ith calculation of estimated glomerular filtration rate > NRG Serum or plasma glucose measurement (mass/volume) 106 mg/dL 70-105 Serum or plasma calcium measurement (mass/volume) 9.1 mg/dL 8.5-10.1 Serum or plasma phosphate measurement (m ass/volume) - 06/09/19 05:40 Serum or plasma phosphate measurement (mass/volume) 4.6 mg/dL 2.3-4.7 Magnesium - 06/09/19 05:40 Magnesium 2.3 mg/dL 1.8-2.4 Automated blood complete blood count (he mogram) panel - 06/10/19 05:20 Blood leukocytes automated count (number/volume) 8.2 10*3/uL 4.3-11.0 Blood erythrocytes automated count (number/volume) 4.52 10*6/uL 4.35-5.85 Venous blood hemoglobin measurement (mass/volume) 12.7 g/dL 11.5-16.0 Blood hematocrit (volume fraction) 39 % 35-52 Automated erythrocyte mean corpuscular volume 86 [ foz_us] 80-99 Automated erythrocyte mean corpuscular h emoglobin (mass per erythrocyte) 28 pg 25-34 Automated erythrocyte mean corpuscular h emoglobin concentration measurement (mass/volume) 33 g/dL 32-36 Automated erythrocyte distribution width ratio 15. 9 % 10.0- 14.5 Automated blood platelet count (count/volume) 363 10*3/uL 130-400 Automated blood platelet mean volume measurement 11.1 [foz_us] 7.4-10.4 Serum or plasma phosphate measurement (m ass/volume) - 06/10/19 05:20 Serum or plasma phosphate measurement (mass/volume) 4.3 mg/dL 2.3-4.7 Whole blood basic metabolic panel - 06/01 05:20 Serum or plasma sodium measurement (moles/volume) 133 mmol/L 135-145 Serum or plasma potassium measurement (moles/volume) 4.3 mmol/L 3.6-5.0 Serum or plasma chloride measurement (moles/volume) 97 mmol/L 98-107 Carbon dioxide 22 mmol/L 21-32 Serum or plasma anion gap determination (moles/volume) 14 mmol/L 5-14 Serum or plasma urea nitrogen measurement (mass/volume ) 22 mg/dL 7-18 Serum or plasma creatinine measurement (mass/volume) 0.91 mg/dL 0.60-1.30 Serum or plasma urea nitrogen/creatinine mass ratio 24 NRG Serum or plasma creatinine measurement w ith calculation of estimated glomerular filtration rate 60 NRG Serum or plasma glucose measurement (mass/volume) 101 mg/dL 70-105 Serum or plasma calcium measurement (mass/volume) 9.1 mg/dL 8.5-10.1 Magnesium - 06/10/19 05:20 Magnesium 2.5 mg/dL 1.8-2.4 Arterial blood gas measurement - 0 00:20 Blood pCO2 33 mm[Hg] 35-45 Blood pO2 65 mm[Hg] 79-93 Arterial blood bicarbonate measurement (moles/volume) 21 mmol/L 23-27 Arterial blood base excess by calculation -2.7 mmo l/L -2.5-2.5 Arterial blood oxygen saturation measurement 93 % 94-100 * Inhaled oxygen flow rate 2L NRG Arterial blood pH measurement with patient temperature correction 7.42 7.37-7.43 Arterial blood carbon dioxide, total measurement (mole s/volume) 22.0 mmol/L 21.0-31.0 Body site RIGHT RADIAL NRG Assessment of wrist artery patency prior to arterial p uncture YES-POS NRG Setting of ventilation mode NO NR G Measurement of body temperature 37.1 NRG Complete blood count (CBC) with automate d white blood cell (WBC) differential - 01/09/20 00:33 Blood leukocytes automated count (number/volume) 8.3 10*3/uL 4.3-11.0 Blood erythrocytes automated count (number/volume) 3.62 10*6/uL 4.35-5.85 Venous blood hemoglobin measurement (mass/volume) 10.9 g/dL 11.5-16.0 Blood hematocrit (volume fraction) 32 % 35-52 Automated erythrocyte mean corpuscular volume 89 [ foz_us] 80-99 Automated erythrocyte mean corpuscular h emoglobin (mass per erythrocyte) 30 pg 25-34 Automated erythrocyte mean corpuscular h emoglobin concentration measurement (mass/volume) 34 g/dL 32-36 Automated erythrocyte distribution width ratio 15. 1 % 10.0- 14.5 Automated blood platelet count (count/volume) 286 10*3/uL 130-400 Automated blood platelet mean volume measurement 10.4 [foz_us] 7.4-10.4 Automated blood neutrophils/100 leukocytes 71 % 42-75 Automated blood lymphocytes/100 leukocytes 18 % 12-44 Blood monocytes/100 leukocytes 10 % 0-12 Automated blood eosinophils/100 leukocytes 2 % 0-10 Automated blood basophils/100 leukocytes 0 % 0-10 Blood neutrophils automated count (number/volume) 5.8 10*3 1.8-7.8 Blood lymphocytes automated count (number/volume) 1.5 10*3 1.0-4.0 Blood monocytes automated count (number/volume) 0. 8 10*3 0.0-1.0 Automated eosinophil count 0.1 10*3/uL 0 .0-0.3 Automated blood basophil count (count/volume) 0.0 10*3/uL 0.0-0.1 PT panel in platelet poor plasma by coag ulation assay - 01/09/20 00:33 Prothrombin time (PT) in platelet poor plasma by coagu lation assay 13.3 s 12.2-14.7 INR in platelet poor plasma or blood by coagulation as say 1.0 0.8-1.4 Activated partial thromboplastin time (a PTT) in platelet poor plasma bycoagulation assay - 01/09/20 00:33 Activated partial thromboplastin time (a PTT) in platelet poor plasma bycoagulation assay 31 s 24-35 Fibrin D-dimer FEU measurement in platel et poor plasma (mass/volume) - 01/09/20 00:33 Fibrin D-dimer FEU measurement in platelet poor plasma (mass/volume) 0.66 ug/mL 0.00-0.49 Comprehensive metabolic panel - 01/09/20 00:33 Serum or plasma sodium measurement (moles/volume) 127 mmol/L 135-145 Serum or plasma potassium measurement (moles/volume) 4.8 mmol/L 3.6-5.0 Serum or plasma chloride measurement (moles/volume) 97 mmol/L 98-107 Carbon dioxide 19 mmol/L 21-32 Serum or plasma anion gap determination (moles/volume) 11 mmol/L 5-14 Serum or plasma urea nitrogen measurement (mass/volume ) 15 mg/dL 7-18 Serum or plasma creatinine measurement (mass/volume) 0.72 mg/dL 0.60-1.30 Serum or plasma urea nitrogen/creatinine mass ratio 21 NRG Serum or plasma creatinine measurement w ith calculation of estimated glomerular filtration rate > NRG Serum or plasma glucose measurement (mass/volume) 100 mg/dL 70-105 Serum or plasma calcium measurement (mass/volume) 9.1 mg/dL 8.5-10.1 Serum or plasma total bilirubin measurement (mass/volu me) 0.3 mg/dL 0.1-1.0 Serum or plasma alkaline phosphatase bairon surement (enzymatic activity/volume) 104 U/L 40-136 Serum or plasma aspartate aminotransfera se measurement (enzymatic activity/volume) 19 U/L 5-34 Serum or plasma alanine aminotransferase measurement (enzymatic activity/volume) 14 U/L 0-55 Serum or plasma protein measurement (mass/volume) 6.6 g/dL 6.4-8.2 Serum or plasma albumin measurement (mass/volume) 4.0 g/dL 3.2-4.5 CALCIUM CORRECTED 9.1 mg/dL 8.5-10.1 Magnesium - 01/09/20 00:33 Magnesium 2.0 mg/dL 1.6-2.4 Serum or plasma troponin i.cardiac measu rement (mass/volume) - 01/09/20 00:33 Serum or plasma troponin i.cardiac measurement (mass/v olume) 0.062 ng/mL <0.028 Myoglobin, serum - 01/09/20 00:33 Myoglobin, serum 64.3 ng/mL 10.0-92.0 Serum or plasma lithium measurement (mol es/volume) - 01/09/20 00:33 BNP PT 1853.1 pg/mL <100.0 Influenza virus A and B antigen detectio n - 01/09/20 00:58 FLU RESULT NEGATIVE FOR INFLUENZA A AND B ANTIGENS BY [facility] [place] Influenza virus A and B antigen detectio n - 01/25/20 21:18 FLU RESULT NEGATIVE FOR INFLUENZA A AND B ANTIGENS BY [facility] [place] Complete blood count (CBC) with automate d white blood cell (WBC) differential - 01/25/20 21:35 Blood leukocytes automated count (number/volume) 9.4 10*3/uL 4.3-11.0 Blood erythrocytes automated count (number/volume) 3.57 10*6/uL 4.35-5.85 Venous blood hemoglobin measurement (mass/volume) 10.8 g/dL 11.5-16.0 Blood hematocrit (volume fraction) 32 % 35-52 Automated erythrocyte mean corpuscular volume 90 [ foz_us] 80-99 Automated erythrocyte mean corpuscular h emoglobin (mass per erythrocyte) 30 pg 25-34 Automated erythrocyte mean corpuscular h emoglobin concentration measurement (mass/volume) 34 g/dL 32-36 Automated erythrocyte distribution width ratio 15. 4 % 10.0- 14.5 Automated blood platelet count (count/volume) 343 10*3/uL 130-400 Automated blood platelet mean volume measurement 11.0 [foz_us] 7.4-10.4 Automated blood neutrophils/100 leukocytes 70 % 42-75 Automated blood lymphocytes/100 leukocytes 15 % 12-44 Blood monocytes/100 leukocytes 13 % 0-12 Automated blood eosinophils/100 leukocytes 2 % 0-10 Automated blood basophils/100 leukocytes 0 % 0-10 Blood neutrophils automated count (number/volume) 6.5 10*3 1.8-7.8 Blood lymphocytes automated count (number/volume) 1.4 10*3 1.0-4.0 Blood monocytes automated count (number/volume) 1. 3 10*3 0.0-1.0 Automated eosinophil count 0.1 10*3/uL 0 .0-0.3 Automated blood basophil count (count/volume) 0.0 10*3/uL 0.0-0.1 Whole blood basic metabolic panel - 01/03 03/21 21:35 Serum or plasma sodium measurement (moles/volume) 127 mmol/L 135-145 Serum or plasma potassium measurement (moles/volume) 5.8 mmol/L 3.6-5.0 Serum or plasma chloride measurement (moles/volume) 97 mmol/L 98-107 Carbon dioxide 18 mmol/L 21-32 Serum or plasma anion gap determination (moles/volume) 12 mmol/L 5-14 Serum or plasma urea nitrogen measurement (mass/volume ) 18 mg/dL 7-18 Serum or plasma creatinine measurement (mass/volume) 0.84 mg/dL 0.60-1.30 Serum or plasma urea nitrogen/creatinine mass ratio 21 NRG Serum or plasma creatinine measurement w ith calculation of estimated glomerular filtration rate > NRG Serum or plasma glucose measurement (mass/volume) 99 mg/dL 70-105 Serum or plasma calcium measurement (mass/volume) 8.6 mg/dL 8.5-10.1 Serum or plasma troponin i.cardiac measu rement (mass/volume) - 01/25/20 21:35 Serum or plasma troponin i.cardiac measurement (mass/v olume) 0.274 ng/mL <0.028 Serum or plasma lithium measurement (mol es/volume) - 01/25/20 21:35 BNP PT 3610.8 pg/mL <100.0 Magnesium - 01/25/20 21:35 Magnesium 2.0 mg/dL 1.6-2.4 Blood lactic acid measurement (moles/vol ume) - 01/25/20 22:09 Blood lactic acid measurement (moles/volume) 1.78 mmol/L 0.50-2.00 Bacterial blood culture - 01/25/20 22:09 Bacterial blood culture NG NRG Bacterial blood culture - 01/25/20 22:35 Bacterial blood culture NG NRG Complete urinalysis with reflex to cultu re - 02/24/20 23:13 Urine color determination YELLOW NRG Urine clarity determination CLEAR NR G Urine pH measurement by test strip 5.5 5-9 Specific gravity of urine by test strip 1.020 1.016-1.022 Urine protein assay by test strip, semi-quantitative NEGATIVE NEGATIVE Urine glucose detection by automated test strip NE GATIVE NEGATIVE Erythrocytes detection in urine sediment by light micr oscopy NEGATIVE NEGATIVE Urine ketones detection by automated test strip NE GATIVE NEGATIVE Urine nitrite detection by test strip NEGATIVE NEGATIVE Urine total bilirubin detection by test strip NEGA TIVE NEGATIVE Urine urobilinogen measurement by automated test strip (mass/volume) 0.2 mg/dL < = 1.0 Urine leukocyte esterase detection by dipstick NEG ATIVE NEGATIVE Automated urine sediment erythrocyte cou nt by microscopy (number/high power field) NONE NRG Automated urine sediment leukocyte count by microscopy (number/high power field) NONE NRG Bacteria detection in urine sediment by light microsco py TRACE NRG Crystals detection in urine sediment by light microsco py NONE NRG Casts detection in urine sediment by light microscopy NONE NRG Mucus detection in urine sediment by light microscopy NEGATIVE NRG Complete urinalysis with reflex to culture NO NRG Methicillin resistant Staphylococcus aur eus (MRSA) screening culture - 01/25/20 23:45 Methicillin resistant Staphylococcus aureus (MRSA) scr eening culture NEG NRG Complete blood count (CBC) with automate d white blood cell (WBC) differential - 01/26/20 03:55 Blood leukocytes automated count (number/volume) 7.7 10*3/uL 4.3-11.0 Blood erythrocytes automated count (number/volume) 3.86 10*6/uL 4.35-5.85 Venous blood hemoglobin measurement (mass/volume) 11.4 g/dL 11.5-16.0 Blood hematocrit (volume fraction) 35 % 35-52 Automated erythrocyte mean corpuscular volume 89 [ foz_us] 80-99 Automated erythrocyte mean corpuscular h emoglobin (mass per erythrocyte) 30 pg 25-34 Automated erythrocyte mean corpuscular h emoglobin concentration measurement (mass/volume) 33 g/dL 32-36 Automated erythrocyte distribution width ratio 15. 3 % 10.0- 14.5 Automated blood platelet count (count/volume) 337 10*3/uL 130-400 Automated blood platelet mean volume measurement 10.9 [foz_us] 7.4-10.4 Automated blood neutrophils/100 leukocytes 62 % 42-75 Automated blood lymphocytes/100 leukocytes 21 % 12-44 Blood monocytes/100 leukocytes 14 % 0-12 Automated blood eosinophils/100 leukocytes 2 % 0-10 Automated blood basophils/100 leukocytes 1 % 0-10 Blood neutrophils automated count (number/volume) 4.8 10*3 1.8-7.8 Blood lymphocytes automated count (number/volume) 1.6 10*3 1.0-4.0 Blood monocytes automated count (number/volume) 1. 1 10*3 0.0-1.0 Automated eosinophil count 0.2 10*3/uL 0 .0-0.3 Automated blood basophil count (count/volume) 0.1 10*3/uL 0.0-0.1 Comprehensive metabolic panel - 01/26/20 03:55 Serum or plasma sodium measurement (moles/volume) 134 mmol/L 135-145 Serum or plasma potassium measurement (moles/volume) 3.8 mmol/L 3.6-5.0 Serum or plasma chloride measurement (moles/volume) 98 mmol/L 98-107 Carbon dioxide 25 mmol/L 21-32 Serum or plasma anion gap determination (moles/volume) 11 mmol/L 5-14 Serum or plasma urea nitrogen measurement (mass/volume ) 18 mg/dL 7-18 Serum or plasma creatinine measurement (mass/volume) 0.86 mg/dL 0.60-1.30 Serum or plasma urea nitrogen/creatinine mass ratio 21 NRG Serum or plasma creatinine measurement w ith calculation of estimated glomerular filtration rate > NRG Serum or plasma glucose measurement (mass/volume) 89 mg/dL 70-105 Serum or plasma calcium measurement (mass/volume) 8.9 mg/dL 8.5-10.1 Serum or plasma total bilirubin measurement (mass/volu me) 0.4 mg/dL 0.1-1.0 Serum or plasma alkaline phosphatase bairon surement (enzymatic activity/volume) 129 U/L 40-136 Serum or plasma aspartate aminotransfera se measurement (enzymatic activity/volume) 23 U/L 5-34 Serum or plasma alanine aminotransferase measurement (enzymatic activity/volume) 33 U/L 0-55 Serum or plasma protein measurement (mass/volume) 6.5 g/dL 6.4-8.2 Serum or plasma albumin measurement (mass/volume) 3.9 g/dL 3.2-4.5 CALCIUM CORRECTED 9.0 mg/dL 8.5-10.1 Serum or plasma phosphate measurement (m ass/volume) - 01/26/20 03:55 Serum or plasma phosphate measurement (mass/volume) 4.2 mg/dL 2.3-4.7 Magnesium - 01/26/20 03:55 Magnesium 2.1 mg/dL 1.6-2.4 Serum or plasma troponin i.cardiac measu rement (mass/volume) - 01/26/20 03:55 Serum or plasma troponin i.cardiac measurement (mass/v olume) 0.329 ng/mL <0.028 Complete blood count (CBC) with automate d white blood cell (WBC) differential - 01/27/20 03:35 Blood leukocytes automated count (number/volume) 6.5 10*3/uL 4.3-11.0 Blood erythrocytes automated count (number/volume) 3.86 10*6/uL 4.35-5.85 Venous blood hemoglobin measurement (mass/volume) 11.4 g/dL 11.5-16.0 Blood hematocrit (volume fraction) 34 % 35-52 Automated erythrocyte mean corpuscular volume 89 [ foz_us] 80-99 Automated erythrocyte mean corpuscular h emoglobin (mass per erythrocyte) 30 pg 25-34 Automated erythrocyte mean corpuscular h emoglobin concentration measurement (mass/volume) 33 g/dL 32-36 Automated erythrocyte distribution width ratio 15. 9 % 10.0- 14.5 Automated blood platelet count (count/volume) 345 10*3/uL 130-400 Automated blood platelet mean volume measurement 10.7 [foz_us] 7.4-10.4 Automated blood neutrophils/100 leukocytes 60 % 42-75 Automated blood lymphocytes/100 leukocytes 21 % 12-44 Blood monocytes/100 leukocytes 16 % 0-12 Automated blood eosinophils/100 leukocytes 3 % 0-10 Automated blood basophils/100 leukocytes 1 % 0-10 Blood neutrophils automated count (number/volume) 3.9 10*3 1.8-7.8 Blood lymphocytes automated count (number/volume) 1.4 10*3 1.0-4.0 Blood monocytes automated count (number/volume) 1. 0 10*3 0.0-1.0 Automated eosinophil count 0.2 10*3/uL 0 .0-0.3 Automated blood basophil count (count/volume) 0.0 10*3/uL 0.0-0.1 Whole blood basic metabolic panel - 01/03 05/21 03:35 Serum or plasma sodium measurement (moles/volume) 133 mmol/L 135-145 Serum or plasma potassium measurement (moles/volume) 4.0 mmol/L 3.6-5.0 Serum or plasma chloride measurement (moles/volume) 96 mmol/L 98-107 Carbon dioxide 25 mmol/L 21-32 Serum or plasma anion gap determination (moles/volume) 12 mmol/L 5-14 Serum or plasma urea nitrogen measurement (mass/volume ) 20 mg/dL 7-18 Serum or plasma creatinine measurement (mass/volume) 0.92 mg/dL 0.60-1.30 Serum or plasma urea nitrogen/creatinine mass ratio 22 NRG Serum or plasma creatinine measurement w ith calculation of estimated glomerular filtration rate 59 NRG Serum or plasma glucose measurement (mass/volume) 95 mg/dL 70-105 Serum or plasma calcium measurement (mass/volume) 8.7 mg/dL 8.5-10.1 Serum or plasma phosphate measurement (m ass/volume) - 01/27/20 03:35 Serum or plasma phosphate measurement (mass/volume) 4.5 mg/dL 2.3-4.7 Magnesium - 01/27/20 03:35 Magnesium 2.2 mg/dL 1.6-2.4 Serum or plasma lithium measurement (mol es/volume) - 01/27/20 03:35 BNP PT 1791.1 pg/mL <100.0 Complete blood count (CBC) with automate d white blood cell (WBC) differential - 01/28/20 05:17 Blood leukocytes automated count (number/volume) 7.0 10*3/uL 4.3-11.0 Blood erythrocytes automated count (number/volume) 3.49 10*6/uL 4.35-5.85 Venous blood hemoglobin measurement (mass/volume) 10.4 g/dL 11.5-16.0 Blood hematocrit (volume fraction) 31 % 35-52 Automated erythrocyte mean corpuscular volume 90 [ foz_us] 80-99 Automated erythrocyte mean corpuscular h emoglobin (mass per erythrocyte) 30 pg 25-34 Automated erythrocyte mean corpuscular h emoglobin concentration measurement (mass/volume) 33 g/dL 32-36 Automated erythrocyte distribution width ratio 15. 5 % 10.0- 14.5 Automated blood platelet count (count/volume) 322 10*3/uL 130-400 Automated blood platelet mean volume measurement 11.1 [foz_us] 7.4-10.4 Automated blood neutrophils/100 leukocytes 59 % 42-75 Automated blood lymphocytes/100 leukocytes 19 % 12-44 Blood monocytes/100 leukocytes 17 % 0-12 Automated blood eosinophils/100 leukocytes 4 % 0-10 Automated blood basophils/100 leukocytes 0 % 0-10 Blood neutrophils automated count (number/volume) 4.1 10*3 1.8-7.8 Blood lymphocytes automated count (number/volume) 1.4 10*3 1.0-4.0 Blood monocytes automated count (number/volume) 1. 2 10*3 0.0-1.0 Automated eosinophil count 0.3 10*3/uL 0 .0-0.3 Automated blood basophil count (count/volume) 0.0 10*3/uL 0.0-0.1 Whole blood basic metabolic panel - 01/03 06/20 05:17 Serum or plasma sodium measurement (moles/volume) 130 mmol/L 135-145 Serum or plasma potassium measurement (moles/volume) 4.2 mmol/L 3.6-5.0 Serum or plasma chloride measurement (moles/volume) 94 mmol/L 98-107 Carbon dioxide 26 mmol/L 21-32 Serum or plasma anion gap determination (moles/volume) 10 mmol/L 5-14 Serum or plasma urea nitrogen measurement (mass/volume ) 19 mg/dL 7-18 Serum or plasma creatinine measurement (mass/volume) 1.04 mg/dL 0.60-1.30 Serum or plasma urea nitrogen/creatinine mass ratio 18 NRG Serum or plasma creatinine measurement w ith calculation of estimated glomerular filtration rate 51 NRG Serum or plasma glucose measurement (mass/volume) 89 mg/dL 70-105 Serum or plasma calcium measurement (mass/volume) 8.6 mg/dL 8.5-10.1 Serum or plasma phosphate measurement (m ass/volume) - 01/28/20 05:17 Serum or plasma phosphate measurement (mass/volume) 4.6 mg/dL 2.3-4.7 Magnesium - 01/28/20 05:17 Magnesium 2.1 mg/dL 1.6-2.4 Complete blood count (CBC) with automate d white blood cell (WBC) differential - 04/18/20 19:42 Blood leukocytes automated count (number/volume) 14.8 10*3/uL 4.3-11.0 Blood erythrocytes automated count (number/volume) 3.89 10*6/uL 4.35-5.85 Venous blood hemoglobin measurement (mass/volume) 11.8 g/dL 11.5-16.0 Blood hematocrit (volume fraction) 33 % 35-52 Automated erythrocyte mean corpuscular volume 84 [ foz_us] 80-99 Automated erythrocyte mean corpuscular h emoglobin (mass per erythrocyte) 30 pg 25-34 Automated erythrocyte mean corpuscular h emoglobin concentration measurement (mass/volume) 36 g/dL 32-36 Automated erythrocyte distribution width ratio 16. 3 % 10.0- 14.5 Automated blood platelet count (count/volume) 161 10*3/uL 130-400 Automated blood platelet mean volume measurement 12.6 [foz_us] 7.4-10.4 Automated blood neutrophils/100 leukocytes 84 % 42-75 Automated blood lymphocytes/100 leukocytes 3 % 12-44 Blood monocytes/100 leukocytes 13 % 0-12 Automated blood eosinophils/100 leukocytes 0 % 0-10 Automated blood basophils/100 leukocytes 0 % 0-10 Blood neutrophils automated count (number/volume) 12.3 10*3 1.8-7.8 Blood lymphocytes automated count (number/volume) 0.5 10*3 1.0-4.0 Blood monocytes automated count (number/volume) 1. 9 10*3 0.0-1.0 Automated eosinophil count 0.0 10*3/uL 0 .0-0.3 Automated blood basophil count (count/volume) 0.0 10*3/uL 0.0-0.1 Arterial blood gas measurement - 0 20:05 Blood pCO2 30 mm[Hg] 35-45 Blood pO2 104 mm[Hg] 79-93 Arterial blood bicarbonate measurement (moles/volume) 21 mmol/L 23-27 Arterial blood base excess by calculation -2.5 mmo l/L -2.5-2.5 Arterial blood oxygen saturation measurement 98 % 94-100 * Inhaled oxygen flow rate 50% NRG Arterial blood pH measurement with patient temperature correction 7.45 7.37-7.43 Arterial blood carbon dioxide, total measurement (mole s/volume) 21.8 mmol/L 21.0-31.0 Body site LEFT RADIAL NRG Assessment of wrist artery patency prior to arterial p uncture YES-POS NRG Setting of ventilation mode NA NR G Measurement of body temperature 37.0 NRG Encounters ACCT No. Visit Date/Time Discharge Status Pt. Type Provider Facility Loc./Unit Complaint [id number] 03/25/2015 15:23:00 03/25/2015 23:59: 59 CLS Outpatient KATHYA SANTANA DDS [id number] 03/03/2015 16:04:00 03/03/2015 23:59: 59 CLS Outpatient MARIA LUISA TAN DDS [id number] 02/14/2015 11:40:00 02/14/2015 23:59: 59 CLS Outpatient WOLF AGUIRRE APRN [id number] 01/03/2015 14:48:00 01/03/2015 23:59: 59 CLS Outpatient WOLF AGUIRRE APRN [id number] 11/28/2014 08:23:00 11/28/2014 23:59: 59 CLS Outpatient KADY MATTHEWS MD [id number] 11/08/2014 00:00:00 11/08/2014 23:59: 59 CLS Outpatient WOLF AGUIRRE APRN [id number] 10/18/2014 14:56:00 10/18/2014 23:59: 59 CLS Outpatient WOLF AGUIRRE APRN [id number] 10/13/2014 17:48:00 10/13/2014 23:59: 59 CLS Outpatient HUSAM ORLANDO APRN [id number] 07/29/2014 00:00:00 07/29/2014 23:59: 59 CLS Outpatient MARIA LUISA TAN DDS [id number] 05/17/2014 15:12:00 05/17/2014 23:59: 59 CLS Outpatient MELISSA DONIS DDS [id number] 04/08/2014 00:00:00 04/08/2014 23:59: 59 CLS Outpatient WOLF AGUIRRE APRN [id number] 02/23/2014 14:07:00 02/23/2014 23:59: 59 CLS Outpatient WOLF AGUIRRE APRN [id number] 02/23/2014 14:07:00 02/23/2014 23:59: 59 CLS Outpatient WOLF AGUIRRE APRN [id number] 02/05/2014 11:39:00 02/05/2014 23:59: 59 CLS Outpatient WOLF AGUIRRE APRN [id number] 01/25/2014 14:13:00 01/25/2014 23:59: 59 CLS Outpatient WOLF AGUIRRE APRN [id number] 01/20/2014 13:07:00 01/20/2014 23:59: 59 CLS Outpatient MORAIMA NICOLE DO [id number] 10/07/2013 15:08:00 10/07/2013 23:59: 59 CLS Outpatient JUAREZ GREEN DDS [id number] 09/07/2013 09:10:00 09/07/2013 23:59: 59 CLS Outpatient JUAREZ GREEN DDS [id number] 02/10/2013 17:22:00 02/10/2013 23:59: 59 CLS Outpatient MORAIMA NICOLE DO [id number] 02/03/2013 17:51:00 02/03/2013 23:59: 59 CLS Outpatient [id number] 01/13/2013 10:37:00 01/13/2013 23:59: 59 CLS Outpatient WOLF AGUIRRE APRN [id number] 01/03/2013 14:22:00 01/03/2013 23:59: 59 CLS Outpatient HUSAM ORLANDO APRN Isabel [id number] 11/21/2012 13:05:00 11/21/2012 23:59: 59 CLS Outpatient KAELA CALHOUN DDS [id number] 11/11/2012 16:00:00 11/11/2012 23:59: 59 CLS Outpatient [id number] 09/24/2012 15:10:00 09/24/2012 23:59:5 9 CLS Outpatient [id number] 06/23/2013 11:06:00 Document Registration [id number] 04/03/2013 15:23:00 Document Registration [id number] 04/03/2013 15:23:00 Document Registration [id number] 03/31/2013 15:12:00 Document Registration [id number] 01/25/2020 22:16:00 14:24:00 DIS Inpatient MUNIZ DO, AILEEN [facility] 4TH NSTEMI,AE CHF,LLL PNEUM ONIA [id number] 01/09/2020 00:09:00 020 04:26:00 DIS Emergency CHANNING ABDI MD [facility] ER SOA,CP [id number] 06/06/2019 14:47:00 019 14:04:00 DIS Inpatient MELANY STOKES MD [facility] 4TH CHF EXACERBATION,NSTEMI [id number] 06/02/2019 06:49:00 019 23:59:59 CLS Outpatient DARREN DOMINGUEZ FACC, MARK ACOSTA CC DS [facility] CARD CADCAROLYN D ARTERIAL DISEASE [id number] 02/11/2019 17:03:00 019 12:15:00 DIS Inpatient MUNIZ DO, AILEEN V [facility] 4TH PNEUMONIA;HYPONATREMIA; PLEURAL EFFUSIONS [id number] 02/09/2019 02:06:00 019 05:32:00 DIS Emergency MEI HILL MD [facility] ER SOA [id number] 08/20/2018 12:29:00 018 15:16:00 DIS Emergency MANUEL BOONE [facility] ER ABD PAIN [id number] 09/18/2017 11:13:00 017 14:45:00 DIS Outpatient SHANDA SAINI MD [facility] ENDO ABDOMINAL PAIN [id number] 09/16/2017 05:57:00 017 15:00:00 DIS Outpatient SHANDA SAINI MD [facility] PREOP ABD PAIN [id number] 07/30/2017 17:15:00 017 20:55:00 DIS Emergency MEI HILL MD [facility] ER CONSTIPATION [id number] 03/08/2017 15:00:00 017 19:15:00 DIS Emergency VAN GILLETTE APRN [facility] ER BOTH HIP PAIN [id number] 08/10/2016 03:53:00 016 07:46:00 DIS Emergency SERGIO DOMINGUEZ, MEI Chopra [facility] ER NAUSEA,ABD PAIN ,WEAK PULSE [id number] 05/02/2016 11:11:00 016 14:15:00 DIS Inpatient MELANIE DOMINGUEZ, FRANCE Henson [facility] IRF HIP FRACTURE [id number] 02/06/2016 09:53:00 016 15:43:00 DIS Inpatient LEVON DOMINGUEZ, FRED Ann [facility] ICU CHEST PAIN DIARRHEA DEH YDRATION [id number] 09/05/2015 15:56:00 015 23:59:59 CLS Outpatient WOLF AGUIRRE [facility] RAD SCREENING [id number] 07/27/2015 15:47:00 015 00:01:00 DIS Outpatient SCARLETT NUNES, URBANO Colmenares [facility] CARD BRADYCARDIA [id number] 07/25/2015 21:35:00 015 16:04:00 DIS Inpatient VIRGINIA DOMINGUEZ, FLO Rdz [facility] ICU CHEST PAIN [id number] 05/18/2015 15:00:00 015 23:59:59 CLS Preadmit WOLF AGUIRREP [facility] RAD [id number] 11/06/2014 01:17:00 014 15:42:00 DIS Inpatient CASSIE DOMINGUEZ, KADY Raymundo [facility] CSD SYMPTOMATIC BRADYCARDIA ,N/V,ABD PAIN,COLITIS [id number] 05/04/2014 11:32:00 014 23:59:59 CLS Outpatient WOLF AGUIRRE [facility] RAD SCREENING [id number] 03/01/2014 08:35:00 014 11:15:00 DIS Outpatient BOB ARZATE MD [facility] SDC CONSTIPATION [id number] 02/25/2014 07:26:00 014 23:59:59 CLS Outpatient CARITO DOMINGUEZ, BOB Pierre [facility] PREOP CONSTIPATION [id number] 04/09/2013 11:14:00 013 23:59:59 CLS Outpatient DEEPTI MATHUR APRN [facility] RAD SCREENING [id number] 04/18/2020 19:36:[address] Emergency SERGIO DOMINGUEZ, MEI Chopra [facility] ER RESPIRATORY DISTRESS [id number] 04/27/2016 18:50:[address] Inpatient CASSIE DOMINGUEZ, KADY Raymundo [facility] 4TH [place] [id number] 12/24/2019 10:40:00 12/24/2019 23:59:5 9 CLS Outpatient [id number] 08/01/2016 18:05:00 Document Registration [id number] 10/02/2016 05:05:00 Document Registration [id number] 09/30/2016 07:05:00 Document Registration [id number] 09/13/2016 18:05:00 Document Registration
[2020-04-18] MEDS ORDERED: FUROSEMIDE 40 MG/4 ML INJ (LASIX) IV STA (20:44)
[2020-04-18] MEDS ORDERED: PIPERACILLIN SODIUM/TAZOBACTAM 4.5 GM in NS (IVPB) 100 ML IV ONE (20:45)
[2020-04-18 20:46] LABS: BAND NEUTROPHILS 1 %; LYMPHOCYTES % (MANUAL) 5 %; MONOCYTES % (MANUAL) 16 %; NEUTROPHILS % (MANUAL) 78 %; RBC MORPH NORMAL
[2020-04-18] MEDS: VANCOMYCIN INJECTION 750 MG in NS (IVPB) 250 ML IV SCH ×2 (22:08→22:30)
--- OUTSIDE RECORDS SUMMARY | 2020-04-18 22:16 | XMS REPORT | Encounter Summary ---
Author Author [facility] Makenna WeinsteinPal[place], [facility] Organization [facility] Makenna WeinsteinPatria [facility] Address Unknown Phone Unavailable Care Team Providers Care Bread Stacker Name Role Phone Conversion, History PCP Unavailable Encounter Details Care Team Description [place] [address] [place] [address] RECURR DEPR PSYCH-SEVERE (Primary Dx) 07/21/[address] [facility] in [facility] [address] [facility] [place] [address] Social History Date Tobacco Use Types [...]
--- OUTSIDE RECORDS SUMMARY | 2020-04-18 22:16 | XMS REPORT | Encounter Summary ---
Author Author [facility] Address Unknown Phone Unavailable Care Team Providers Care Labor Specialist Name Role Phone Conversion, History PCP Unavailable Encounter Details Care Team Description Date Type Department Allen Corrales DO [address] [place] [phone] Ed, Physician NEUROTIC DEPRESSION (Primary Dx) 07/20/2002 Emergency [facility] in Emergency Services [address] [place] [address] JS RODRIGUEZ [phone] Social History Date Tobacco Use Types Packs/Day [...]
--- OUTSIDE RECORDS SUMMARY | 2020-04-18 22:16 | XMS REPORT | Clinical Summary ---
Author Author [facility] [place], [facility] Organization [facility] [place] Address Unknown Phone Unavailable Care Team Providers Care Social Media Sr Strategy Manager Name Role Phone Conversion, History PCP Unavailable [...]
--- OUTSIDE RECORDS SUMMARY | 2020-04-18 22:16 | XMS REPORT ---
Author Author [email or web address] lay midwife [facility] [email or web address] Address [address] [place] [address] Care Team Providers Care Vending Machine Assembler Name Role Phone DEE ANTONIO Unavailable Unavailable TIMOTHY, WOLF Unavailable Unavailable TIMOTHY, WOLF Unavailable DAYAN HANDY Unavailable Unavailable TIMOTHY, WOLF Unavailable MARIA LUISA TAN Unavailable Unavailable LIN CANO Unavailable Unavailable LYNDON WRIGHT Unavailable Unavailable JUAREZ SALAZAR Unavailable Unavailable CESAR CANNON Unavailable Unavailable GIOVANI MENENDEZ Unavailable Unavailable MELISSA DONIS Unavailable Unavailable FLO COLEMAN Unavailable Unavailable TIMOTHY, OWLF Unavailable TIMOTHY, WOLF Unavailable TIMOTHY, WOLF Unavailable TIMOTHY, WOLF Unavailable TIMOTHY, WOLF Unavailable TIMOTHY, WOLF Unavailable TIMOTHY, WOLF Unavailable TIMOTHY, WOLF Unavailable TIMOTHY, WOLF Unavailable TIMOTHY, WOLF Unavailable TIMOTHY, WOLF Unavailable TIMOTHY, WOLF Unavailable TIMOTHY, WOLF Unavailable TIMTOHY, WOLF Unavailable TIMOTHY, WOLF Unavailable TIMOTHY, WOLF [...] Unavailable TIMOTHY, WOLF Unavailable TIMOTHY, WOLF Unavailable KADY MATTHEWS MD Unavailable Unavailable CASSIE DOMINGUEZ, KADY Raymundo Unavailable [...] Unavailable TIMOTHY, WOLF Unavailable TIMOTHY, WLOF Unavailable TIMOTHY, WOLF Unavailable TIMOTHY, WOLF Unavailable [...] Unavailable Unavailable MUNIZ, AILEEN Unavailable Unavailable GILLETTE, VAN Unavailable Unavailable GILLETTEVAN Unavailable Unavailable TIMOTHY, WOLF Unavailable TIMOTHY, WOLF Unavailable TIMOTHY, WOLF Unavailable TIMOTHY, WOLF Unavailable TIMOTHY, WOLF Unavailable DARREN DOMINGUEZ FACC, MARK FACP CCDS Unavailable Unavailabl e TIMOTHY, WOLF Unavailable TIMOTHY, WOLF Unavailable TIMOTHY, WOLF Unavailable TIMOTHY, WOLF Unavailable TIMOTHY, WOLF Unavailable TIMOTHY, WOLF Unavailable Migration, Doctor Unavailable Unavailable RAFAEL DO, SOBEIDA K Unavailable Unavailable MELANY STOKES MD Unavailable [...] Unavailable TIMOTHY, WOLF Unavailable MELY BELLO, MANUEL L Unavailable Unavailable VAN GILLETTE APRN Unavailable Unavailable SERGIO DOMINGUEZ, MEI Chopra Unavailable Unavailable CASSIE DOMINGUEZ, KADY Raymundo Unavailable Unavailable CASSIE DOMINGUEZ, KADY Raymundo Unavailable Unavailable TIMOTHY PLATFORM SUPERVISOR, WOLF Unavailable Unavailable SHANDA SAINI MD Unavailable Unavailable SCARLETT NUNES, JERMAINE Colmenares Unavailable Unavailab tashia LEÓN MD, RAMONA Raymundo Unavailable Unavailable SHAI DOMINGUEZ, FRED Ann Unavailable Unavailable SHAI DOMINGUEZ, FRED Ann Unavailable Unavailable MELANIE DOMINGUEZ, FRANCE Henson Unavailable Unavailable MELANIE DOMINGUEZ, FRANCE Henson Unavailable Unavailable [place] DOMINGUEZ, FLO Rdz Unavailable Unavailable NICOLE DO, MORAIMA K Unavailable Unavailable TIMOTHY, WOLF [...] no - 81 no 11-07-20 Active no - 81 no information MG information 16 information [...] information in formation name (1 source.) LIQ 04-17-20 ion (MYLANTA 20 PLUS) 03-18-2020 no no [...] information in formation name (1 source.) MG 04-17-20 ion (DULCOLAX 20 SUPPOS) 10 mg 03-18-2020 no no no no name - information inform informat 03-24-2020 ation ion no BISACODYL no 10 mg 03-09-20 no no no no information SUPPOS SUP information 17 - informat informatio n information name (1 source.) 10 MG 04-08-20 ion (DULCOLAX 17 SUPPOS) no CALMOSEPTIN no 03-18-20 no no no no information E [place] information 20 - informat informati on information name (1 [...] no no n o information Translation Diuretic 20 - informat information inf ormation name [...] 100 mg, 1 capsule Gabapentin Jun, 100 mg2017 Gabapentin Not-Taking 100 mg] 100 mg 06-03-2018 [...] information inf ormation name (4 s: [ 04-17-20 ion sources.) Lactulose 20 20 GM/30ML, Lactulose 667 MG/ML Oral Solution [Enulose], Enulose 10 GM/15ML, LACTULOSE SYRUP LIQ 20 GM/30CC (CHRONULAC SYRUP)] 03-18-2020 no no no no name - information inform informat 04-16-2020 ation ion 03-09-2017 no no no no name - information inform informat 04-08-2017 ation ion 94030 mg/mL Active take Enulose no name 30 mL 10 by GM/15ML mouth GIVE once 30ML BY daily MOUTH ONCE DAILY 30 Active no Loperamide Opioid 2 mg 03-18-20 no no no n o information Agonist - informat information information name (1 source.) [...] no no no no information MAGNESIA information - informat information inf ormation name [...] n information name (1 source.) 24 hour 05-01-20 ion 4.6mg 17 (EXELON) no Rivastigmin no 9.5 mg 03-18-20 no no no no information e TD Patch information - informat informatio n information name (1 source.) 24 hour 04-16-20 ion 9.5mg 20 (EXELON) no sacubitril Angiotensin 03-18-20 no no SACUBITRIL- V no information / valsartan 2 Receptor 20 - informat information A LSARTAN name (1 source.) Lio 04-16-20 ion 24-26MG 1 1 20 no [...] 03-28-20 no no no no information Agonist - informat information information name (1 source.) [...] information inf ormation name (1 source.) UNITS 04-16-20 ion (25mcg) 20 (VITAMIN D-3) NEGATED no no 5 mg 03-22-20 no no no no no information information 17 - informat information infor mation name information 04-20-20 ion (1 source.) 17 Problems Active Problems Problem Normalized Date Last Normalized Normalized Provider Fa cility Classification Problem(s) Recorded Problem Problem Sta tus Duration Other Abnormal Episodic Active AILEEN MUNIZ Not Availa ble nutritional; weight loss (61607) endocrine; and metabolic disorders (25 sources.) Congestive Acute 04-18-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 AILEEN MUNIZ [facility] Via heart failure; diastolic DO Maddie nonhypertensiv (congestive) Hospital - e (25 heart failure [place] sources.) Translations: (00119) [ - Acute on chronic systolic congestive heart failure I50.23, Acute on chronic systolic congestive heart failure, Acute on chronic systolic congestive heart failure, ACUTE COMBINED SYSTOLIC AND DIASTOLIC (C, ACUTE ON CHRONIC COMBINED SYSTOLIC AND D] Acute Acute 04-18-2020 - Episodic Active KADY MATTHEWS [facility] Via posthemorrhagi posthemorrhagi MD Maddie melendrez anemia (10 c anemia Hospital - sources.) [place] ([address]401) Other Adult failure Episodic Active WOLF TIMOTHY Com munity nutritional; to thrive [id number] [place] [address] endocrine; and syndrome of [facility] metabolic Translations: [place] (29436) disorders (20 [ Failure to sources.) thrive in adult, Failure to thrive in adult] Allergic Allergy status 04-18-2020 - Episodic Active MANUEL BOONE Not Available reactions (28 to narcotic (24235) sources.) agent status Translations: [ ALLERGY STATUS TO OTHER ANTIBIOTIC AGENT, ALLERGY STATUS TO NARCOTIC AGENT STATUS] Deficiency and Anemia, 04-18-2020 - Episodic Active FRANCE TERRELL , Not Available other anemia unspecified (74019) (29 sources.) External cause Bedroom in 04-18-2020 - Episodic Active KADY MATTHEWS [facility] Via codes: Place [facility]p [facility] of occurrence as the place Hospital - (12 sources.) of occurrence [place] [facility] (22101) external cause Translations: [ SHOP (COMMERCIAL) PLACE] Other Chronic Chronic Active WOLF TIMOTHY Communit y gastrointestin idiopathic [address] [facility] al disorders constipation of [facility] (20 sources.) Translations: [place] (98359) [ - Chronic idiopathic constipation K59.04] Chronic Chronic 04-18-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 AILEEN MUNIZ [facility] Via obstructive obstructive DO [facility] - disease and disease, [place] bronchiectasis unspecified (77710) (10 sources.) Residual Chronic pain Episodic Active WOLF TIMOTHY Comm unity codes; Translations: [address] [place] [address] unclassified [ Other of [facility] (20 sources.) chronic pain] [place] (57609) Other Constipation Episodic Active WOLF TIMOTHY Comm unity gastrointestin Translations: [address] [place] [address] al disorders [ of [facility] (20 sources.) Constipation, [place] (59473) unspecified constipation type, Constipation, unspecified constipation type] Other Constipation, 04-18-2020 - Episodic Active BOB LOO Not Available gastrointestin unspecified , (20548) al disorders (22 sources.) Other skin Corns and Episodic Active WOLF TIMOTHY Commun ity disorders (20 callosities [address] Health Center sources.) Translations: of [facility] [ - Callus of [place] (42706) foot L84, - Callus of foot L84] Coronary Coronary no information Active FLO COLEMAN Not Available atherosclerosi MD [place] (58678) s and other s of heart disease unspecified (30 sources.) type of vessel, [place] or graft Translations: [ AORTOCORONARY BYPASS, PRESENCE OF AORTOCORONARY BYPASS GRAFT, ATHSCL HEART DISEASE OF [place] CORONARY , PRESENCE OF AORTOCORONARY BYPASS GRAFT, Atheroscleroti c heart disease of [place] coronary artery without angina pectoris, Atheroscleroti c heart disease of [place] coronary artery without angina pectoris, ATHSCL HEART DISEASE OF [place] CORONARY ] Other lower Cough Episodic Active WOLF TIMOTHY Commun ity respiratory Translations: [address] [place] [address] disease (20 [ - Cough R05] of [place] sources.) [place] (63814) Unclassified Decrease in Episodic Active WOLF TIMOTHY Co mmunity (20 sources.) appetite [address] [place] [address] Center Translations: of [facility] [ Poor [place] (46979) appetite, Poor appetite] Schizophrenia Delusional Chronic Active [facility] and other disorders [facility] of psychotic Translations: [place] disorders (20 [ OTHER County ([address]30) sources.) SCHIZOPHRENIA] Abdominal Diaphragmatic 04-18-2020 - Episodic Active SHANDA DELAROSA , [facility] Via hernia (13 hernia without [facility] sources.) obstruction or Hospital - gangrene [place] () Other Diarrhea, 04-18-2020 - Episodic Active WOLF TIMOTHY Community gastrointestin unspecified [address] [facility] al disorders Translations: of [facility] (20 sources.) [ - Diarrhea, [place] (98910) unspecified type R19.7, - Acute diarrhea R19.7, - Diarrhea, unspecified type R19.7, - Acute diarrhea R19.7] Fracture of Displaced 04-18-2020 - Episodic Active KAYD Cobb [facility] Via neck of femur intertrochante [facility] (hip) (21 [facility] - sources.) of left femur, [place] initial () encounter for closed fracture Translations: [ DISPL INTERTROCH FX L FEMUR, SUBS FOR CL] Residual Do not 04-18-2020 - Episodic Active AILEEN MUNIZ [facility] Via codes; resuscitate DO Maddie unclassified Hospital - (21 sources.) [place] (71703) Other Dysphagia, Episodic Active WOLF TIMOTHY Commun ity gastrointestin oropharyngeal [address] [facility] al disorders phase of [facility] (20 sources.) Translations: [place] (79638) [ - Oropharyngeal dysphagia R13.12, - Oropharyngeal dysphagia R13.12] Other lower Dyspnea, 04-18-2020 - Episodic Active MEI [facility] Via respiratory unspecified SERGIOMD Maddie BUNDY disease (5 Hospital - sources.) [place] (78274) Other injuries Elevated urine Episodic Active WOLF SY N Community [place] [address] [facility] due to drugs, of [facility] external medicaments [place] (77810) causes (20 and biological sources.) substances Translations: [ - Positive urine drug screen R82.5, - Positive urine drug screen R82.5] Other 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 SMITH [facility] Via hereditary and other [facility] degenerative specified Hospital - nervous system forms of [place] conditions (8 tremor (93202) sources.) Other Essential 04-18-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 FRED GIBBONS [facility] Via hereditary and tremor [facility] degenerative Hospital - nervous system [place] conditions (19 (58489) sources.) External cause Fall from bed, 04-18-2020 - Episodic Active BALJINDER MORRIS MATTHEWS [facility] Via codes: Fall initial [facility] (22 sources.) encounter Hospital - Translations: [place] [ - Fall from (92920) bed, sequela W06.XXXS, UNSPECIFIED FALL, INITIAL ENCOUNTER, UNSPECIFIED FALL, SUBSEQUENT ENCOUNTER] Other Falls Episodic Active WOLF TIMOTHY Communit y connective Translations: [address] [facility] tissue disease [ Falling] of [facility] (10 sources.) [place] (81003) Residual Family history 04-18-2020 - Episodic Active MANUEL BOONE [facility] Via codes; of ischemic PLATFORM SUPERVISOR Maddie unclassified heart disease Hospital - (22 sources.) and other [place] diseases of (47417) the circulatory system Other Flatulence Episodic Active WOLF TIMOTHY Commun ity gastrointestin Translations: [address] [place] [address] al disorders [ - Flatulence of [facility] (20 sources.) R14.3, - [place] () Flatulence R14.3] Other Functional Episodic Active WOLF TIMOTHY Commun ity disorders of dyspepsia [id number] [place] [address] stomach and Translations: of [facility] duodenum (17 [ - Dyspepsia [place] (97930) sources.) K30] Gastroduodenal Gastric ulcer, 04-18-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 LENKA SAINI [facility] Via ulcer (except unspecified as [facility] hemorrhage) acute or Hospital - (13 sources.) chronic, [place] without (79293) hemorrhage or perforation Gastritis and Gastritis, 04-18-2020 - Episodic Active SHANDA SAINI [facility] Via duodenitis (13 unspecified, [facility] sources.) without Hospital - bleeding [place] (35359) Headache; Headache 04-18-2020 - Episodic Active FRED GIBBONS [facility] Via including , [facility] migraine (8 Hospital - sources.) [place] (35642) Unclassified Hypochondriasi Chronic Active WOLF TIMOTHY [facility] (20 sources.) s [address] [facility] Translations: of [facility] [ [place] (17729) Hypochondriasi s, Hypochondriasi s] Unclassified Hypochondriasi Chronic Active WOLF TIMOTHY [facility], [facility] (20 sources.) s [address] Health Center Translations: of [facility] [ - [place] (49017) 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, - 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] Other lower Hypoxemia 04-18-2020 - Episodic Active OLIMPIA CARRASCO Via respiratory DO Maddie disease (22 Hospital - sources.) [place] (41919) Other Indigestion Episodic Active WOLF TIMOTHY Commu nity disorders of Translations: [address] [place] [address] stomach and [ Dyspepsia] of [facility] duodenum (17 [place] (41191) sources.) Residual Insomnia Episodic Active WOLF TIMOTHY Communit y codes; Translations: [address] [place] [address] unclassified [ Insomnia, of [facility] (20 sources.) unspecified [place] (27498) type] Residual Insomnia, Episodic Active WOLF TIMOTHY Communi ty codes; unspecified [address] [place] [address] Center unclassified Translations: of [facility] (20 sources.) [ - Insomnia, [place] (90770) unspecified type G47.00] Residual Intermittent Chronic Active Doctor Community codes; confusion Migration [facility] Center unclassified Translations: of [facility] (20 sources.) [ Sundowning] [place] (90200) Residual Intermittent Episodic Active WOLF TIMOTHY Comm unity codes; confusion [address] [place] [address] Center unclassified Translations: of [facility] (20 sources.) [ Sundowning] [place] (26439) 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 of al disorders with [place] (20 sources.) constipation [facility] (55166) Open wounds of [place] 04-18-2020 - Episodic Active OLIMPIA EWING Via head; neck; without DO Maddie and trunk (9 foreign body Hospital - sources.) of left eyelid [place] and periocular (20280) area, initial encounter Pneumonia Lobar 04-18-2020 - Episodic Active OLIMPIA DANGELO Via (except that pneumonia, DO Maddie caused by unspecified Hospital - tuberculosis organism [place] or sexually Translations: (22508) transmitted [ - Pneumonia disease) (20 due to sources.) infectious organism, unspecified laterality, unspecified part of lung J18.9] Other group home 04-18-2020 - Episodic Active PETER GILLETTE N ot Available aftercare (23 (current) use (95992) sources.) of anticoagulants Other manager terminal 04-18-2020 - Episodic Active OLIMPIA DANGELO Via aftercare (10 (current) use [facility] sources.) of Hospital - antithrombotic [place] s/antiplatelet (73736) s Other manager terminal 04-18-2020 - Episodic Active MEI Not Available aftercare (21 (current) use MD SERGIO (79998) sources.) of aspirin Immunizations Need for 04-18-2020 - Episodic Active KADY BOOKER , Not Available and screening prophylactic (02110) for infectious vaccination disease (25 and sources.) inoculation against influenza Translations: [ ENCOUNTER FOR IMMUNIZATION, NEED FOR PROPHYLACTIC VACCINATION AND INOCULATION AGAINST UNSPECIFIED SINGLE DISEASE] Acute Non-ST 04-18-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 MELANY STOKES [facility] Via myocardial elevation [facility] infarction (32 (NSTEMI) Hospital - sources.) myocardial [place] infarction (65767) Translations: [ SUBSEQUENT NON-ST ELEVATION (NSTEMI) NYASIA, NON-ST ELEVATION (NSTEMI) MYOCARDIAL INF] Occlusion or Occlusion and 04-18-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 AILEEN MUNIZ [facility] Via stenosis of stenosis of DO Maddie precerebral unspecified Hospital - arteries (10 carotid artery [place] sources.) (31494) Other Oropharyngeal Episodic Active WOLF AGUIRRE [facility] gastrointestin dysphagia [address] [place] [address] al disorders Translations: of [place] (20 sources.) [ [place] (44815) Oropharyngeal dysphagia, Oropharyngeal dysphagia] Disorders of Other and 04-18-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 BOB LOO Not Available lipid unspecified , (37912) metabolism (20 hyperlipidemia sources.) Translations: [ HYPERLIPIDEMIA , UNSPECIFIED, PURE HYPERCHOLESTER OLEM, OTHER AND UNSPECIFIED HYPERLIPIDEMIA , PURE HYPERCHOLESTER OLEMIA, UNSPECIFIED, OTHER AND UNSPECIFIED HYPERLIPIDEMIA ] Noninfectious Other and 04-18-2020 - Episodic Active KADY CAMPBELL , [facility] Via gastroenteriti unspecified MD Maddie barry (8 sources.) noninfectious Hospital - gastroenteriti [place] s and colitis (64304) Nonspecific Other chest 04-18-2020 - Episodic Active FLO RODRIGUEZ [facility] Via chest pain (16 pain , [facility] sources.) Translations: Hospital - [ PRECORDIAL [place] PAIN] (55873) Other nervous Other chronic Chronic Active WOLF TIMOTHY Community system pain [address] [facility] Center disorders (20 Translations: of [facility] sources.) [ - Other [place] (55209) chronic pain G89.29, - Other chronic pain G89.29] Other Other 04-18-2020 - Episodic Active AILEEN CRISTY N ot Available gastrointestin constipation (22897) al disorders (24 sources.) Deficiency and Other iron Episodic Active WOLF TIMOTHY C ommunity other anemia deficiency 23390 [facility] Center (20 sources.) anemias of [facility] Translations: [place] (37028) [ - Iron deficiency anemia secondary to inadequate dietary iron intake D50.8, - Iron deficiency anemia secondary to inadequate dietary iron intake D50.8] Other Other long 04-18-2020 - Episodic Active MEI Not Available aftercare (20 term (current) MD SERGIO (58363) sources.) drug therapy Personality Other specific Chronic Active [facility] yoan disorders (11 personality 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, - 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] Attention-defi Other symptoms Episodic Active WOLF SY N Community cit conduct and signs [address] [facility] and disruptive involving of [facility] behavior appearance and [place] (46909) disorders (20 behavior sources.) Translations: [ - Self-care deficit in patient living alone R46.89] Other Pain in left Episodic Active WOLF TIMOTHY Comm unity connective foot [address]013 [facility] tissue disease Translations: of [facility] (20 sources.) [ - Pain of [place] (27728) left foot M79.672, - Pain of left foot M79.672] Other Pain in left Episodic Active WOLF TIMOTHY Comm unity connective leg [address]83 [facility] tissue disease Translations: of [facility] (20 sources.) [ - Left leg [place] (90980) pain M79.605, - Left leg pain M79.605] Other Pain in right Episodic Active WOLF AGUIRRE Com munity connective foot [address]9038 [facility] tissue disease Translations: of [facility] (20 sources.) [ - Pain in [place] (90558) right foot M79.671, - Pain in right foot M79.671] Other Pain in right 04-18-2020 - Episodic Active WOLF CHA [facility] non-traumatic hip 35383 [facility] Center joint Translations: [facility] disorders (20 [ - Pain in [place] (11589) sources.) right hip M25.551, - Pain in right hip M25.551] Cardiac Palpitations no information Active MARK BANKS [facility] Via dysrhythmias Translations: MD MARISSA [facility] (4 sources.) [ OTHER Hospital - SPECIFIED [place] CARDIAC (73522) ARRHYTHMIAS] Residual Patient's 04-18-2020 - Episodic Active OLIMPIA MOONEY Via codes; other LUCIUS [facility] unclassified noncompliance Hospital - (4 sources.) with [place] medication (96418) regimen Residual Personal 04-18-2020 - Episodic Active FLO COLEMAN [facility] Via codes; history of , [facility] unclassified noncompliance Hospital - (4 sources.) with medical [place] treatment, (92081) presenting hazards to health Pleurisy; Pleural 04-18-2020 - Episodic Active OLIMPIA DANGELO Via pneumothorax; effusion, not DO Maddie pulmonary elsewhere Hospital - collapse (37 classified [place] sources.) Translations: (54655) [ ATELECTASIS, PLEURAL EFFUSION, NOT ELSEWHERE CLASSIFI] Coronary 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-2020 - Episodic Active OLIMPIA DANGELO Via atherosclerosi aortocoronary DO Maddie s and other bypass graft Hospital - heart disease Translations: [place] (24 sources.) [ PRESENCE OF (00899) CORONARY ANGIOPLASTY IMPLANT, PRESENCE OF AORTOCORONARY BYPASS GRAFT, AORTOCORONARY BYPASS] Other 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-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 TAKKOFFI STEWARTO , Not Available connective artificial hip (59283) tissue disease joint, (21 sources.) bilateral Other 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-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 VAN GILLETTE Not Available connective right (07635) tissue disease artificial hip (22 sources.) joint Chronic ulcer Pressure ulcer Chronic Active WOLF TIMOTHY Community of skin (20 of right [address]157 Health Center sources.) ankle, stage 2 of [facility] Translations: [place] (52439) [ - Pressure injury of right ankle, stage 2 L89.512, - Pressure injury of right ankle, stage 1 L89.511, - Pressure sore on ankle, right, unstageable L89.510] Unclassified Primary Chronic Active WOLF TIMOTHY Commu nity (20 sources.) insomnia 89067 [facility] Center Translations: of [facility] [ - Primary [place] (26785) insomnia F51.01, - Primary insomnia F51.01] Other Pruritus, 04-18-2020 - Episodic Active OLIMPIA DANGELO Via inflammatory unspeckorin [place] condition of Hospital - skin (9 [place] sources.) (44275) Other skin Rash and other Episodic Active WOLF TIMOTHY C ommunity disorders (20 nonspecific [address]41 Health Center sources.) skin eruption of [facility] Translations: [place] ([address]991) [ - Rash 782.1, - Rash 782.1] Other Repeated falls Episodic Active AILEEN MUNIZ Not Available connective Translations: (31113) tissue disease [ - Falling (32 sources.) R29.6] Other Restless legs Chronic Active WOLF TIMOTHY Com munity hereditary and Translations: [address] [place] [address] degenerative [ Restless of [facility] nervous system legs] [place] (17620) conditions (20 sources.) Other Restless legs Chronic Active WOLF TIMOTHY Com munity hereditary and syndrome [address] [place] [address] degenerative Translations: of [facility] nervous system [ - Restless [place] (16780) conditions (20 legs G25.81] sources.) Residual Restlessness 04-18-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 FRANCE NAVARRO VC Via codes; and agitation [facility] unclassified [facility] - (11 sources.) [place] (23709) Heart valve Rheumatic 04-18-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 OLIMPIA SPAIN Via disorders (22 disorders of [facility] sources.) both mitral Hospital - and tricuspid [place] valves (70751) Translations: [ RHEUMATIC TRICUSPID INSUFFICIENCY] Other Rosacea Chronic Active WOLF TIMOTHY Communit y inflammatory Translations: [facility] condition of [ Acne of [facility] skin (20 rosacea, Acne [place] (35696) sources.) rosacea] Other lower Shortness of 04-18-2020 - Episodic Active MEI [facility] Via respiratory breath MD Maddie HILL disease (18 Hospital - sources.) [place] ([address]301) Other Slow transit Episodic Active WOLF TIMOTHY Comm unity gastrointestin constipation 20295 [facility] Center al disorders Translations: of [facility] (20 sources.) [ Slow transit [place] (31875) constipation, Slow transit constipation] Other Slow transit Episodic Active WOLF TIMOTHY Comm unity gastrointestin constipation 03909 [facility] Center al disorders Translations: of [facility] (20 sources.) [ - Slow [place] (38485) transit constipation K59.01, - Slow transit constipation K59.01] Other nervous Tremor, 04-18-2020 - Episodic Active WOLF HAFSA NNAN Community system unspecified [address] [facility] disorders (20 Translations: of [facility] sources.) [ - Tremor [place] (41895) R25.1, - Tremor R25.1] Other injuries Unspecified 04-18-2020 - Episodic Active KADY MATTHEWS [facility] Via and conditions injury of [facility] due to head, initial Hospital - external encounter [place] causes (4 (53414) sources.) Other injuries Unspecified 04-18-2020 - Episodic Active FRANCE GOODMAN [facility] Via and conditions injury of [facility] due to head, Hospital - external subsequent [place] causes (11 encounter (73614) sources.) Osteoarthritis Unspecified 04-18-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 TIMOTH Y Not Available (20 sources.) osteoarthritis MD SERG[facility] (62401) , unspecified site Translations: [ PRIMARY OSTEOARTHRITIS , UNSPECIFIED SITE] Nutritional Vitamin D Chronic Active AILEEN MUNIZ Not Sarah ilable deficiencies deficiency, (43027) (31 sources.) unspecified Translations: [ UNSPECIFIED VITAMIN D DEFICIENCY] Past or Other Problems Problem Normalized Date Last Normalized Normalized Provider Fa cility Classification Problem(s) Recorded Problem Problem Sta tus Duration Other Adult failure Episodic Completed AILEEN MUNIZ Not A vailable nutritional; to thrive (82617) endocrine; and metabolic disorders (4 sources.) Unclassified Chronic pain no information no information AILEEN G ARNER Not Available (11 sources.) (68108) Other Long-term Episodic Completed AILEEN MUNIZ Not Avail able aftercare (8 (current) use (80596) sources.) of anticoagulants Other Loss of weight Episodic Completed AILEEN MUNIZ Not Available nutritional; (25466) endocrine; and metabolic disorders (5 sources.) Unclassified MAJOR DEP no information no information [facility] (1 source.) [facility] (00249) Other Other Episodic Completed AILEEN MUNIZ Not Availa ble gastrointestin constipation (17065) al disorders (2 sources.) Residual Other no information no information MEI Not Available codes; specified MD SERGIO (44590) unclassified postprocedural (1 source.) states Other Other symptoms Episodic Completed AILEEN MUNIZ Not Available connective involving (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 nervous and (6 sources.) musculoskeleta l systems Disorders of Pure no information no information MEI Not Available lipid hypercholester MD SERGIO (41397) metabolism (21 olemia, sources.) unspecified External Shop no information no information KADY MATTHEWS Not Available Injury - Place (commercial) (26868) of occurrence as the place (18 sources.) of occurrence of the external cause Translations: [ BEDROOM IN SKILLED NURSING PLACE] External Unspecified no information no information KADY Cobb Not Available Injury - Fall fall, initial (70129) (20 sources.) encounter Translations: [ UNSPECIFIED FALL, SUBSEQUENT ENCOUNTER, FALL FROM BED, INITIAL ENCOUNTER, - Fall from bed, sequela W06.XXXS] Other injuries Unspecified no information no information KADY MATTHEWS Not Available and conditions injury of (54762) due to head, initial external encounter causes (6 sources.) Unclassified VASCULAR D no information no information [facility] (1 source.) [facility] (29275) Procedures Procedure Normalized Procedure Procedure Result Performer Facility Date 02-05-2014 Assay of thyroid no information no name [facility] ity [employer] stimulating hormone [facility] (99899) 02-14-2015 Blood count complete no information no name [facility] auto&auto difrntl wbc [facility] (09077) 02-05-2014 Blood count complete no information no name [facility] auto&auto difrntl wbc [facility] (26756) 02-14-2015 Collection venous no information no name [facility] blood venipuncture [facility] (10220) 02-05-2014 Collection venous no information no name [facility] blood venipuncture [facility] (82187) 02-14-2015 Comprehensive no information no name [facility] metabolic panel [facility] (65225) 02-05-2014 Comprehensive no information no name [facility] metabolic panel [facility] (32287) 12-03-2017 FQHC visit, estab pt no information no name [facility] (88606) 08-28-2018 LAB NOT BILLED BY no information no name [facility] (76927) 02-14-2015 Lipid panel no information no name [facility] (48912) 02-05-2014 Lipid panel no information no name [facility] (02321) 05-04-2014 Mammogram, screening no information no name [facility] (44748) 10-18-2014 Noninvasive ear/pulse no information no name [facility] oxim[facility] (63858) 04-28-2016 REPOSITION LEFT UPPER no information no name V [facility] Via Maddie FEMUR WITH [facility] (70033) REPOSITION LEFT UPPER no information no name Not Avai lable (79615) FEMUR WITH INTRAME Immunizations Normalized Immunization Date Notes Care Provider Facili ty Immunization tetanus toxoid, 02-11-2019 no information no name Not Sarah ilable reduced diphtheria (99973) toxoid, and acellular pertussis vaccine, adsorbed ADMN FLU VAC NO FEE 01-20-2014 no information Doctor Migration [facility] SAME DAY [facility] ([id number]) Results Test Name Value Interpretation Reference Range Date Time Fa cility (Normalized) (Normalized) (Medline Reference) not yet categorized on 2020-04-18 Arterial patency YES-POS (no code) 04-18-2020 PENDING L OCATION Wrist artery 16:05-0400 [facility] (40927) --pre arterial puncture Body site LEFT RADIAL (no code) 04-18-2020 PENDING LOCATI ON 16: [facility] () Inhaled oxygen 50% (no code) 04-18-2020 PENDING LOC ATION flow rate 16: [facility] () Ventilation mode no information (no code) 04-18-2020 PENDIN G LOCATION Ventilator 16: [facility] () laboratory on 2020-04-18 Albumin 3.9 g/dL (NEG) 3.4 - 5.4 g/dL 04-18-2020 PENDING LOCATION [Mass/Vol] 15: [facility] () ALP [Catalytic 107 U/L (NEG) 44 - 147 U/L 04-18-2020 PEND ING LOCATION activity/Vol] 15: [facility] () ALT [Catalytic 18 U/L (NEG) 4 - 40 U/L 04-18-2020 PENDIN G LOCATION activity/Vol] 15: [facility] (56490) Anion gap 13 mmol/L (NEG) 3 - 11 mmol/L 04-18-2020 PENDING LOCATION [Moles/Vol] 15: [facility] (39565) AST [Catalytic 27 U/L (NEG) 10 - 34 U/L 04-18-2020 PENDI NG LOCATION activity/Vol] 15: [facility] (17312) Band form 1 % (no code) 0 - 3 % 04-18-2020 PENDING LOCA TION neutrophils/100 15: [facility] (87720) WBC (Bld) Base excess Calc 2.5 mmol/L (NEG) -2 - 2 mmol/L 04-18-2020 PENDING LOCATION (Bld) 16: [facility] () [Moles/Vol] Basophils (Bld) 0.0 10*3/uL (NEG) 0 - 0.3 10*3/uL 04-18-2020 PENDING LOCATION [#/Vol] 15:42 [facility] (87600) Basophils/100 0 % (NEG) 0.5 - 1 % 04-18-2020 PENDING LOCATION WBC (Bld) 15: [facility] (95454) Bilirubin 1.0 mg/dL (NEG) 0.1 - 1.2 mg/dL 04-18-2020 PENDIN G LOCATION [Mass/Vol] 15:42-0400 [facility] (66655) Calcium 8.2 mg/dL (L) 8.5 - 10.2 mg/dL 04-18-2020 PENDI NG LOCATION [Mass/Vol] 15:42-0400 [facility] (18056) Calcium 8.3 mg/dL (L) 8.5 - 10.2 mg/dL 04-18-2020 PENDI NG LOCATION [Mass/Vol] 15:42-0400 [facility] (37436) Chloride 83 mmol/L (L) 95 - 106 mmol/L 04-18-2020 [facility] LOCATION [Moles/Vol] 15:42-0400 [facility] (06050) CO2 (Bld) 30 mm[Hg] (L) 35 - 45 mm[Hg] 04-18-2020 PENDING LOCATION [Partial 16:05-0400 [facility] (84684) pressure] CO2 [Moles/Vol] 14 mmol/L (L) 23 - 29 mmol/L 04-18-2020 P ENDING LOCATION 15:42-0400 [facility] (48282) CO2 [Moles/Vol] 21.8 mmol/L (NEG) 23 - 29 mmol/L 04-18-2020 PENDING LOCATION 16:05-0400 [facility] (08363) Creatinine 0.86 mg/dL (NEG) 04-18-2020 PENDING LOCATI ON [Mass/Vol] 15:42-0400 [facility] (84320) Creatinine and > (no code) 04-18-2020 PENDING LOC ATION Glomerular 15:42-0400 [facility] (75988) filtration rate.predicted panel - Serum, Plasma or Blood CRP [Mass/Vol] 10.77 (H) 04-18-2020 PENDING LOC ATION 15:42-0400 [facility] (94556) Eosinophils 0.0 10*3/uL (NEG) 0.05 - 0.5 04-18-2020 PENDING LOCATION (Bld) [#/Vol] 10*3/uL 15:42-0400 [facility] (96086) Eosinophils/100 0 % (NEG) 1 - 4 % 04-18-2020 PENDIN G LOCATION WBC (Bld) 15:42-0400 [facility] (46163) Erythrocyte 16.3 % (H) 11.6 - 14.6 % 04-18-2020 [facility] LOCATION distribution 15:42-0400 [facility] (74249) width (RBC) [Ratio] Glucose 147 mg/dL (H) 60 - 125 mg/dL 04-18-2020 PENDING LOCATION [Mass/Vol] 15:42-0400 [facility] (50744) HCO3 (Bld) 21 mmol/L (L) 22 - 28 mmol/L 04-18-2020 [facility] LOCATION [Moles/Vol] 16:05-0400 [facility] (00388) Hematocrit (Bld) 33 % (L) 36.1 - 50.3 % 04-18-2020 P ENDING LOCATION [Volume 15:42-0400 [facility] (87657) fraction] Hemoglobin (Bld) 11.8 g/dL (NEG) 12.1 - 17.2 g/dL 04-18-2020 PENDING LOCATION [Mass/Vol] 15:42-0400 [facility] (25611) Lactate 3.03 mmol/L (HH) 0.5 - 2.2 mmol/L 04-18-2020 [facility] LOCATION [Moles/Vol] 15:42-0400 [facility] (08047) Lymphocytes 0.5 10*3/uL (L) 0.9 - 2.9 04-18-2020 PENDING LOCATION (Bld) [#/Vol] 10*3/uL 15:42-0400 [facility] (24978) Lymphocytes/100 3 % (L) 20 - 40 % 04-18-2020 [facility] LOCATION WBC (Bld) 15:42-0400 [facility] (37003) Lymphocytes/100 5 % (no code) 20 - 40 % 04-18-2020 [facility] LOCATION WBC (Bld) 15:42-0400 [facility] (55173) Magnesium 1.8 mg/dL (NEG) 1.7 - 2.2 mg/dL 04-18-2020 [facility] LOCATION [Mass/Vol] 15:42-0400 [facility] (14368) MCH (RBC) 30 pg (NEG) 27 - 31 pg 04-18-2020 PENDING LOC ATION [Entitic mass] 15:42-0400 [facility] (46570) MCHC (RBC) 36 g/dL (NEG) 32 - 36 g/dL 04-18-2020 PENDING LOCATION [Mass/Vol] 15:42-0400 [facility] (48130) MCV (RBC) 84 (NEG) 04-18-2020 PENDING LOCATI ON [Entitic vol] 15:42-0400 [facility] (96078) Monocytes (Bld) 1.9 10*3/uL (H) 0.3 - 0.9 04-18-2020 PEND ING LOCATION [#/Vol] 10*3/uL 15:42-0400 [facility] (22440) Monocytes/100 13 % (H) 2 - 8 % 04-18-2020 PENDING LOCATION WBC (Bld) 15:42-0400 [facility] (85087) Monocytes/100 16 % (no code) 2 - 8 % 04-18-2020 PENDING LOCATION WBC (Bld) 15:42-0400 [facility] (56625) Natriuretic 3636.6 pg/mL (H) 0 - 100 pg/mL 04-18-2020 [facility] LOCATION peptide B (Bld) 15:42-0400 [facility] (77530) [Mass/Vol] Neutrophils 12.3 10*3/uL (H) 1.7 - 7 10*3/uL 04-18-2020 P ENDING LOCATION (Bld) [#/Vol] 15:42-0400 [facility] (99177) Neutrophils/100 84 % (H) 40 - 60 % 04-18-2020 PENDIN G LOCATION WBC (Bld) 15:42-0400 [facility] (05729) Oxygen (Bld) 104 mm[Hg] (H) 75 - 100 mm[Hg] 04-18-2020 [facility] LOCATION [Partial 16:05-0400 [facility] (25685) pressure] pH adjusted to 7.45 (H) 04-18-2020 PENDING LOC ATION patient's actual 16:05-0400 [facility] (17144) temperature (BldA) Platelet mean 12.6 (H) 04-18-2020 PENDING LOCA TION volume (Bld) 15:42-0400 [facility] (47864) [Entitic vol] Platelets (Bld) 161 10*3/uL (NEG) 150 - 450 04-18-2020 PEND ING LOCATION [#/Vol] 10*3/uL 15:42-0400 [facility] (00304) Potassium 5.7 mmol/L (H) 3.7 - 5.2 mmol/L 04-18-2020 PEND ING LOCATION [Moles/Vol] 15:42-0400 [facility] (02821) Protein 6.9 g/dL (NEG) 6.4 - 8.3 g/dL 04-18-2020 PENDING LOCATION [Mass/Vol] 15:42-0400 [facility] (12090) RBC (Bld) 3.89 10*6/uL (L) 4.2 - 6.1 04-18-2020 PENDING L OCATION [#/Vol] 10*6/uL 15:42-0400 [facility] (14293) RBC morphology NORMAL (no code) 04-18-2020 PENDING LOC ATION finding Nom 15:42-0400 [facility] (73358) (Bld) SaO2% (BldA) 98 (NEG) 04-18-2020 PENDING LOCAT ION [Mass fraction] 16:05-0400 [facility] (38689) Segmented 78 % (no code) 35 - 80 % 04-18-2020 PENDING LOCA TION neutrophils/100 15:42-0400 [facility] (34168) WBC (Bld) Sodium 110 mmol/L (LL) 135 - 145 mmol/L 04-18-2020 PEND ING LOCATION [Moles/Vol] 15:42-0400 [facility] (09882) Troponin ng/mL (NEG) 0 - 0.4 ng/mL 04-18-2020 PENDING LOCATION I.cardiac 15:42-0400 [facility] (30727) [Mass/Vol] Urea nitrogen 9 mg/dL (NEG) 7 - 20 mg/dL 04-18-2020 PENDI NG LOCATION [Mass/Vol] 15:42-0400 [facility] (34589) Urea 10 mg/mg (no code) 6 - 22 mg/mg 04-18-2020 PENDING L OCATION nitrogen/Creatin 15:42-0400 [facility] (45485) ine [Mass ratio] WBC (Bld) 14.8 10*3/uL (H) 3.5 - 10.5 04-18-2020 PENDING LOCATION [#/Vol] 10*3/uL 15:42-0400 [facility] (73876) laboratory on 2020-03-24 Albumin BCG dye 3.5 (L) 04-23-2020 Hospital [Mass/Vol] 01: [facility] (72778) ALP [Catalytic 64 U/L (no code) 44 - 147 U/L 03-24-2020 Hosp ital activity/Vol] : [facility] () ALT [Catalytic 6 U/L (no code) 4 - 40 U/L 03-24-2020 Hospit al activity/Vol] : [facility] () Anion gap 11 mmol/L (no code) 3 - 11 mmol/L 03-24-2020 Hospital [Moles/Vol] : [facility] () AST [Catalytic 13 U/L (no code) 10 - 34 U/L 03-24-2020 Hospi yoan activity/Vol] : [facility] () Basophils (Bld) 0.0 10*3/uL (no code) 0 - 0.3 10*3/uL 03-24-2020 Hospital [#/Vol] 01: [facility] () Basophils/100 0.40 % (no code) 0.5 - 1 % 03-24-2020 Hospital WBC (Bld) : [facility] () Bilirubin 0.4 mg/dL (no code) 0.1 - 1.2 mg/dL 03-24-2020 Hospit al [Mass/Vol] : [facility] (32183) Calcium 8.5 mg/dL (no code) 8.5 - 10.2 mg/dL 03-24-2020 Hospi yoan [Mass/Vol] : [facility] (17791) Chloride 105 mmol/L (no code) 95 - 106 mmol/L 03-24-2020 Hospi yoan [Moles/Vol] : [facility] (92706) Creatinine 0.73 mg/dL (no code) 03-24-2020 Hospital [Mass/Vol] : [facility] (97159) Eosinophils 0.1 10*3/uL (no code) 0.05 - 0.5 03-24-2020 Hospita l (Bld) [#/Vol] 10*3/uL : [facility] (19155) Eosinophils/100 2.3 % (no code) 1 - 4 % 03-24-2020 Hospit al WBC (Bld) : [facility] (47053) Erythrocyte 16.7 % (H) 11.6 - 14.6 % 03-24-2020 Hospit al distribution : [facility] width (RBC) [facility] [Ratio] (16061) GFR/1.73 sq 77 (no code) 90 - 120 03-24-2020 Hospital M.predicted MDRD mL/min/{1.73_m2} mL/min/{1.73_m2} : [facility] (S/P/Bld) [Vol [facility] rate/Area] () Globulin (S) 2.0 g/dL (L) 2 - 3.5 g/dL 03-24-2020 Hospit al [Mass/Vol] : [facility] () Glucose 96 mg/dL (no code) 60 - 125 mg/dL 03-24-2020 Hospita l [Mass/Vol] : [facility] (80137) HCO3 (P) 21 (L) 03-24-2020 Hospital [Moles/Vol] : [facility] (98791) Hematocrit (Bld) 30.6 % (L) 36.1 - 50.3 % 03-24-2020 H ospital [Volume : [facility] fraction] [facility] (56406) Hemoglobin (Bld) 10.6 g/dL (L) 12.1 - 17.2 g/dL 03-24-2020 Hospital [Mass/Vol] : [facility] (42298) Lymphocytes 1.26 10*3/uL (no code) 0.9 - 2.9 03-24-2020 Hospita l (Bld) [#/Vol] 10*3/uL 01:00 [facility] (11851) Lymphocytes/100 26.6 % (no code) 20 - 40 % 03-24-2020 Hospit al WBC (Bld) 01: [facility] (09968) MCH (RBC) 30.9 pg (no code) 27 - 31 pg 03-24-2020 Hospital [Entitic mass] 01: [facility] (28224) MCHC (RBC) 34.6 g/dL (no code) 32 - 36 g/dL 03-24-2020 Hospital [Mass/Vol] 01: [facility] (59370) MCV (RBC) 89.2 fL (no code) 80 - 100 fL 03-24-2020 Hospital [Entitic vol] 01: [facility] () Monocytes (Bld) 0.9 10*3/uL (no code) 0.3 - 0.9 03-24-2020 Hosp ital [#/Vol] 10*3/uL 01: [facility] (06270) Monocytes/100 18.0 % (H) 2 - 8 % 03-24-2020 Hospital WBC (Bld) 01: [facility] (80788) Neutrophils 2.49 10*3/uL (no code) 1.7 - 7 10*3/uL 03-24-2020 H ospital (Bld) [#/Vol] 01: [facility] (66966) Neutrophils/100 52.7 % (no code) 40 - 60 % 03-24-2020 Hospit al WBC (Bld) 01: [facility] (15871) Osmolality Calc 276 (L) 03-24-2020 Hospital [Osmolality] 01: [facility] (62554) Platelet mean 11.1 fL (H) 7.2 - 11.7 fL 03-24-2020 Hosp ital volume (Bld) 01: [facility] [Entitic vol] [facility] (45355) Platelets (Bld) 214 10*3/uL (no code) 150 - 450 03-24-2020 Hosp ital [#/Vol] 10*3/uL 01: [facility] () Potassium 4.2 mmol/L (no code) 3.7 - 5.2 mmol/L 03-24-2020 Hosp ital [Moles/Vol] 01: [facility] () Protein 5.5 g/dL (L) 6.4 - 8.3 g/dL 03-24-2020 Hospita l [Mass/Vol] 01: [facility] () RBC (Bld) 3.43 10*6/uL (L) 4.2 - 6.1 03-24-2020 Hospital [#/Vol] 10*6/uL 01: [facility] () Sodium 133 mmol/L (L) 135 - 145 mmol/L 03-24-2020 Hosp ital [Moles/Vol] : [facility] (76768) Urea nitrogen 15 mg/dL (no code) 7 - 20 mg/dL 03-24-2020 Hospi yoan [Mass/Vol] : [facility] (86617) WBC (Bld) 4.73 10*3/uL (L) 3.5 - 10.5 03-24-2020 Hospital [#/Vol] 10*3/uL : [facility] () laboratory on 2020-03-20 Anion gap 13 mmol/L (no code) 3 - 11 mmol/L 03-20-2020 Hospital [Moles/Vol] : [facility] (22263) Calcium 9.0 mg/dL (no code) 8.5 - 10.2 mg/dL 03-20-2020 Hospi yoan [Mass/Vol] : [facility] (03733) Chloride 100 mmol/L (no code) 95 - 106 mmol/L 03-20-2020 Hospi yoan [Moles/Vol] : [facility] (56609) Creatinine 0.66 mg/dL (no code) 03-20-2020 Hospital [Mass/Vol] 01: [facility] (51366) GFR/1.73 sq 86 (no code) 90 - 120 03-20-2020 Hospital M.predicted MDRD mL/min/{1.73_m2} mL/min/{1.73_m2} : [facility] (S/P/Bld) [Vol [facility] rate/Area] (78053) Glucose 85 mg/dL (no code) 60 - 125 mg/dL 03-20-2020 Hospita l [Mass/Vol] : [facility] () HCO3 (P) 24 (no code) 03-20-2020 Hospital [Moles/Vol] : [facility] (48641) Natriuretic 852.40 pg/mL (H) 0 - 100 pg/mL 03-20-2020 Hos pital peptide B (Bld) : [facility] [Mass/Vol] [facility] (33627) Osmolality Calc 273 (L) 03-20-2020 Hospital [Osmolality] : [facility] (12676) Potassium 4.7 mmol/L (no code) 3.7 - 5.2 mmol/L 03-20-2020 Hosp ital [Moles/Vol] : [facility] (62081) Sodium 132 mmol/L (L) 135 - 145 mmol/L 03-20-2020 Hosp ital [Moles/Vol] : [facility] (62438) Urea nitrogen 13 mg/dL (no code) 7 - 20 mg/dL 03-20-2020 Hospi yoan [Mass/Vol] : [facility] (58863) laboratory on 2020-03-18 Cholesterol 173 mg/dL (no code) 180 - 200 mg/dL 03-18-2020 Hosp ital [Mass/Vol] [facility] (80993) Cholesterol in 47 mg/dL (no code) 03-18-2020 Hospital HDL [Mass/Vol] [facility] (65606) Cholesterol in 106 mg/dL (H) 0 - 100 mg/dL 03-18-2020 Hos pital LDL [Mass/Vol] [facility] (95450) Cholesterol in 20 mg/dL (no code) 03-18-2020 Hospital VLDL [Mass/Vol] : [facility] (97710) Cholesterol.tota 3.7 {ratio} (no code) 03-18-2020 Hospital l/Cholesterol in [facility] HDL [Mass ratio] [facility] (97480) Triglyceride 100 mg/dL (no code) 0 - 150 mg/dL 03-18-2020 Hospi yoan [Mass/Vol] : [facility] (42757) not yet categorized on 2020-03-17 CULTURE SOURCE cath urine (no code) 03-17-2020 Hospital [id number] [facility] (40393) Electrocardiogra Complete (no code) 03-17-2020 Hospital ms recorded 11: [facility] (18408) FINAL CULTURE Negative (no code) 03-17-2020 Hospital RESULTS 11: [facility] (64929) FINAL CULTURE No Growth 48 (no code) 03-17-2020 Hospital RESULTS hours 22:35-0400 [facility] (90035) PRELIM CULTURE No Growth 24 (no code) 03-17-2020 Hospital RESULTS hours 22:35-0400 [facility] (41526) Urine Volume Urine Volume (no code) 03-17-2020 Hospital Sufficient 22:35-0400 [facility] (10mL) [facility] (65671) no information Culture to (A) 03-17-2020 Hospital follow; cath 22:350 [facility] urine [facility] (09755) laboratory on 2020-03-17 Albumin BCG dye 4.0 (no code) 03-17-2020 Hospital [Mass/Vol] 11:12 [facility] (10032) ALP [Catalytic 74 U/L (no code) 44 - 147 U/L 03-17-2020 Hosp ital activity/Vol] 11:12 [facility] (06975) ALT [Catalytic 10 U/L (no code) 4 - 40 U/L 03-17-2020 Hospit al activity/Vol] 11:12 [facility] (59458) Amphetamines Ql Negative (no code) 03-17-2020 Hospital (U) 22:35-0400 [facility] (11662) Anion gap 13 mmol/L (no code) 3 - 11 mmol/L 03-17-2020 Hospital [Moles/Vol] 11:12 [facility] (37469) AST [Catalytic 16 U/L (no code) 10 - 34 U/L 03-17-2020 Hospi yoan activity/Vol] 11:12 [facility] ([id number]) Bacteria LM Ql Negative (no code) 03-17-2020 Hospital (Urine sed) 22:350400 [facility] () Barbiturates Negative (no code) 03-17-2020 Hospital Screen Ql (U) 22:350400 [facility] ([id number]) Basophils (Bld) 0.0 10*3/uL (no code) 0 - 0.3 10*3/uL 03-17-2020 Hospital [#/Vol] 11:12040 [facility] (73166) Basophils/100 0.20 % (no code) 0.5 - 1 % 03-17-2020 Hospital WBC (Bld) 11:12 [facility] ([id number]) Benzodiazepine Negative (no code) 03-17-2020 Hospital metabolites 22:35-0400 [facility] Screen Ql (U) [facility] ([id number]) Bilirubin 0.3 mg/dL (no code) 0.1 - 1.2 mg/dL 03-17-2020 Hospit al [Mass/Vol] 11:12 [facility] ([id number]) Bilirubin N/A (A) 03-17-2020 Hospital Confirm Ql (U) 22:35-0400 [facility] () Bilirubin Ql (U) Negative (no code) 03-17-2020 Hospital 22:350 [facility] (53903) Calcium 8.8 mg/dL (no code) 8.5 - 10.2 mg/dL 03-17-2020 Hospi yoan [Mass/Vol] 11: [facility] (21037) Carboxy Negative (no code) 03-17-2020 Hospital tetrahydrocannab 22:35 [facility] inol Ql (U) [facility] (64926) Chloride 97 mmol/L (no code) 95 - 106 mmol/L 03-17-2020 Hospit al [Moles/Vol] 11: [facility] (99127) CK [Catalytic 67 U/L (no code) 03-17-2020 Hospital activity/Vol] 11: [facility] ([id number]) CK.MB [Mass/Vol] 2.2 ng/mL (no code) 0 - 4.3 ng/mL 03-17-2020 H ospital 11: [facility] ([id number]) Clarity (U) Clear (no code) 03-17-2020 Hospital 22:35 [facility] (22237) Cocaine Ql (U) Negative (no code) 03-17-2020 Hospital 22:35 [facility] (61769) Color (U) Yellow (no code) 03-17-2020 Hospital 22:35 [facility] ([id number]) Creatinine 1.01 mg/dL (no code) 03-17-2020 Hospital [Mass/Vol] 11: [facility] (70176) Eosinophils 0.1 10*3/uL (no code) 0.05 - 0.5 03-17-2020 Hospita l (Bld) [#/Vol] 10*3/uL 11: [facility] ([id number]) Eosinophils/100 1.8 % (no code) 1 - 4 % 03-17-2020 Hospit al WBC (Bld) 11: [facility] ([id number]) Epithelial 0-2/HPF (A) 03-17-2020 Hospital cells.squamous 22:35 [facility] LM.HPF (Urine [facility] sed) [#/Area] ([id number]) Erythrocyte 15.6 % (H) 11.6 - 14.6 % 03-17-2020 Hospit al distribution 11: [facility] width (RBC) [facility] [Ratio] ([id number]) Ethanol Ql (U) <10.00 (L) 03-17-2020 Hospital 22:35 [facility] (43266) GFR/1.73 sq 53 (L) 90 - 120 03-17-2020 Hospital M.predicted MDRD mL/min/{1.73_m2} mL/min/{1.73_m2} 11: [facility] (S/P/Bld) [Vol [facility] rate/Area] ([id number]) Globulin (S) 2.8 g/dL (no code) 2 - 3.5 g/dL 03-17-2020 Hospit al [Mass/Vol] 11: [facility] ([id number]) Glucose 74 mg/dL (no code) 60 - 125 mg/dL 03-17-2020 Hospita l [Mass/Vol] 11: [facility] (75812) Glucose Test Negative (no code) 03-17-2020 Hospital strip (U) 22:35 [facility] [Mass/Vol] [facility] ([id number]) HCO3 (P) 25 (no code) 03-17-2020 Hospital [Moles/Vol] 11: [facility] (43596) Hematocrit (Bld) 36.2 % (no code) 36.1 - 50.3 % 03-17-2020 H ospital [Volume 11: [facility] fraction] [facility] ([id number]) Hemoglobin (Bld) 12.3 g/dL (L) 12.1 - 17.2 g/dL 03-17-2020 Hospital [Mass/Vol] 11:12 [facility] (26760) Hemoglobin Ql Negative (no code) 03-17-2020 Hospital (U) 22:35 [facility] (96903) Ketones (U) Negative (no code) 03-17-2020 Hospital [Mass/Vol] 22:35-0400 [facility] ([id number]) Leukocyte Negative (no code) 03-17-2020 Hospital esterase Test 22:35 [facility] strip Ql (U) [facility] (92514) Lymphocytes 0.98 10*3/uL (no code) 0.9 - 2.9 03-17-2020 Hospita l (Bld) [#/Vol] 10*3/uL 11: [facility] (06531) Lymphocytes/100 15.9 % (no code) 20 - 40 % 03-17-2020 Hospit al WBC (Bld) 11: [facility] (91354) MCH (RBC) 30.4 pg (no code) 27 - 31 pg 03-17-2020 Hospital [Entitic mass] 11: [facility] (71758) MCHC (RBC) 34.0 g/dL (no code) 32 - 36 g/dL 03-17-2020 Hospital [Mass/Vol] 11:12 [facility] (78957) MCV (RBC) 89.4 fL (no code) 80 - 100 fL 03-17-2020 Hospital [Entitic vol] 11:12 [facility] (93325) Methylenedioxyme Negative (no code) 03-17-2020 Hospital thamphetamine 22:35 [facility] Screen Ql (U) [facility] (73532) Monocytes (Bld) 0.7 10*3/uL (no code) 0.3 - 0.9 03-17-2020 Hosp ital [#/Vol] 10*3/uL 11: [facility] ([id number]) Monocytes/100 11.2 % (no code) 2 - 8 % 03-17-2020 Hospital WBC (Bld) 11: [facility] (14373) Myoglobin 40.4 ng/mL (no code) 03-17-2020 Hospital [Mass/Vol] 11: [facility] (43014) Natriuretic 412.70 pg/mL (H) 0 - 100 pg/mL 03-17-2020 Hos pital peptide B (Bld) 11: [facility] [Mass/Vol] [facility] ([id number]) Neutrophils 4.38 10*3/uL (no code) 1.7 - 7 10*3/uL 03-17-2020 H ospital (Bld) [#/Vol] 11: [facility] (30499) Neutrophils/100 70.9 % (no code) 40 - 60 % 03-17-2020 Hospit al WBC (Bld) 11: [facility] ([id number]) Nitrite Ql (U) Negative (no code) 03-17-2020 Hospital 22:350400 [facility] (40666) Opiates Screen Negative (no code) 03-17-2020 Hospital Ql (U) 22:350400 [facility] (74540) Osmolality Calc 269 (L) 03-17-2020 Hospital [Osmolality] 11: [facility] ([id number]) Oxycodone Ql (U) Negative (no code) 03-17-2020 Hospital 22:350400 [facility] ([id number]) pH (U) 5.5 [pH] (no code) 4.6 - 8 [pH] 03-17-2020 Hospital 22:350400 [facility] (45317) Phencyclidine Ql Negative (no code) 03-17-2020 Hospital (U) 22:350400 [facility] ([id number]) Platelet mean 11.8 fL (H) 7.2 - 11.7 fL 03-17-2020 Hosp ital volume (Bld) 11: [facility] [Entitic vol] [facility] (39948) Platelets (Bld) 246 10*3/uL (no code) 150 - 450 03-17-2020 Hosp ital [#/Vol] 10*3/uL 11: [facility] (81384) Potassium 3.8 mmol/L (no code) 3.7 - 5.2 mmol/L 03-17-2020 Hosp ital [Moles/Vol] 11:12 [facility] (83174) Propoxyphene Ql Negative (no code) 03-17-2020 Hospital (U) 22:35-0400 [facility] (97936) Protein (U) Negative (no code) 0 - 20 mg/dL 03-17-2020 Hospita l [Mass/Vol] 22:35-0400 [facility] (84027) Protein 6.8 g/dL (no code) 6.4 - 8.3 g/dL 03-17-2020 Hospita l [Mass/Vol] 11:12 [facility] ([id number]) RBC (Bld) 4.05 10*6/uL (no code) 4.2 - 6.1 03-17-2020 Hospital [#/Vol] 10*6/uL 11:12 [facility] ([id number]) RBC LM.HPF 0-2/HPF (A) 03-17-2020 Hospital (Urine sed) 22:35-0400 [facility] [#/Area] [facility] ([id number]) Sodium 131 mmol/L (L) 135 - 145 mmol/L 03-17-2020 Hosp ital [Moles/Vol] 11: [facility] (44018) Specific gravity <=1.005 (A) 03-17-2020 Hospital (U) [Rel 22:35-0400 [facility] density] [facility] (57345) Tricyclic Negative (no code) 03-17-2020 Hospital antidepressants 22:35-0400 [facility] Ql (U) [facility] (15754) Troponin ng/mL (no code) 0 - 0.4 ng/mL 03-17-2020 Hospital I.cardiac 11: [facility] [Mass/Vol] [facility] (43233) TSH Qn 2.26 (no code) 03-17-2020 Hospital 11: [facility] (86002) Urea nitrogen 9 mg/dL (no code) 7 - 20 mg/dL 03-17-2020 Hospi yoan [Mass/Vol] 11: [facility] (68451) Urobilinogen Qn 0.2 (no code) 03-17-2020 Hospital (U) 22:35-0400 [facility] ([id number]) WBC (Bld) 6.17 10*3/uL (no code) 3.5 - 10.5 03-17-2020 Hospital [#/Vol] 10*3/uL 11:12-0400 [facility] (75840) WBC LM.HPF 0-2/HPF (A) 03-17-2020 Hospital (Urine sed) 22:35-0400 [facility] [#/Area] [facility] ([id number]) thyroid on 2017-03-09 Free T4 1.11 ng/dL (no code) 0.9 - 2.2 ng/dL 03-09-2017 Not A vailable [Mass/Vol] 05:48-0400 ([id number]) TSH Qn 0.87 (no code) 03-09-2017 Not Available 05:48-0400 ([id number]) other on 2017-03-09 25-Hydroxyvitami 17.00 (L) 03-09-2017 Not Avail able n 05:48-0400 (78323) D2+25-Hydroxyvit menendez D3 [Mass/Vol] Albumin BCG dye 4.2 (no code) 03-09-2017 Not Availa ble [Mass/Vol] 05:48-0400 ([id number]) Cholesterol in 13 mg/dL (no code) 03-09-2017 Not Availab le VLDL [Mass/Vol] 05:48-0400 ([id number]) Cholesterol.tota 3.7 {ratio} (no code) 03-09-2017 Not Avail able l/Cholesterol in 05:48-0400 (55776) HDL [Mass ratio] Cobalamin 1135.00 pg/mL (H) 200 - 900 pg/mL 03-09-2017 No t Available (Vitamin B12) 05:48-0400 ([id number]) [Mass/Vol] Electrocardiogra Complete (no code) 03-09-2017 Not Avail able ms recorded 05:48-0400 ([id number]) Erythrocyte 13.1 % (no code) 11.6 - 14.6 % 03-09-2017 Not Av ailable distribution 05:48-0400 (42576) width (RBC) [Ratio] FINAL CULTURE Negative (no code) 03-09-2017 Not Availabl e RESULTS 05:48-0400 ([id number]) Folate (Bld) 18.90 (no code) 03-09-2017 Not Available [Mass/Vol] 05:48-0400 ([id number]) GFR/1.73 sq 71 (no code) 90 - 120 03-09-2017 Not Availa ble M.predicted MDRD mL/min/{1.73_m2} mL/min/{1.73_m2} 05:48-0400 ([id number]) (S/P/Bld) [Vol rate/Area] Globulin (S) 2.6 g/dL (no code) 2 - 3.5 g/dL 03-09-2017 Not Av ailable [Mass/Vol] 05:48-0400 ([id number]) HCO3 (P) 24 (no code) 03-09-2017 Not Available [Moles/Vol] 05:48-0400 ([id number]) Iron binding 296 (no code) 03-09-2017 Not Available capacity 05:48-0400 ([id number]) [Mass/Vol] Iron binding 237 (no code) 03-09-2017 Not Available capacity.unsatur 05:48-0400 ([id number]) ated [Mass/Vol] Iron/Iron 16.54 (no code) 03-09-2017 Not Available binding 05:48-0400 ([id number]) capacity.total [Mass Ratio] in Serum or Plasma MCHC (RBC) 33.3 g/dL (no code) 32 - 36 g/dL 03-09-2017 Not Avai lable [Mass/Vol] 05:48-0400 ([id number]) MEDIA PLATED Setup at 06:09 (no code) 03-09-2017 Not Availa ble on 03/09/2017 05:48-0400 ([id number]) Osmolality Calc 296 (H) 03-09-2017 Not Availa ble [Osmolality] 05:48-0400 ([id number]) Platelet mean 11.4 fL (H) 7.2 - 11.7 fL 03-09-2017 Not Available volume (Bld) 05:48-0400 ([id number]) [Entitic vol] metabolic panel on 2017-03-09 ALP [Catalytic 58 U/L (no code) 44 - 147 U/L 03-09-2017 Not Available activity/Vol] 05:48 ([id number]) ALT [Catalytic 15 U/L (no code) 4 - 40 U/L 03-09-2017 Not Av ailable activity/Vol] 05:48 ([id number]) Anion gap 17 mmol/L (H) 3 - 11 mmol/L 03-09-2017 Not Avai lable [Moles/Vol] 05:48 ([id number]) AST [Catalytic 22 U/L (no code) 10 - 34 U/L 03-09-2017 Not A vailable activity/Vol] 05:48 ([id number]) Bilirubin 0.8 mg/dL (no code) 0.1 - 1.2 mg/dL 03-09-2017 Not Av ailable [Mass/Vol] 05:48 ([id number]) Calcium 9.5 mg/dL (no code) 8.5 - 10.2 mg/dL 03-09-2017 Not A vailable [Mass/Vol] 05:48 (03320) Chloride 105 mmol/L (no code) 95 - 106 mmol/L 03-09-2017 Not A vailable [Moles/Vol] 05:48 (31734) Creatinine 0.79 mg/dL (no code) 03-09-2017 Not Available [Mass/Vol] 05:48 (63270) Glucose 73 mg/dL (no code) 60 - 125 mg/dL 03-09-2017 Not Sarah ilable [Mass/Vol] 05:48 ([id number]) Iron [Mass/Vol] 49 ug/dL (L) 60 - 170 ug/dL 03-09-2017 N ot Available 05:48 (65077) Potassium 4.4 mmol/L (no code) 3.7 - 5.2 mmol/L 03-09-2017 Not Available [Moles/Vol] 05:48 ([id number]) Protein 6.8 g/dL (no code) 6.4 - 8.3 g/dL 03-09-2017 Not Sarah ilable [Mass/Vol] 05:48 (57442) Sodium 142 mmol/L (no code) 135 - 145 mmol/L 03-09-2017 Not Available [Moles/Vol] 05:48-0400 ([id number]) Urea nitrogen 26 mg/dL (H) 7 - 20 mg/dL 03-09-2017 Not A vailable [Mass/Vol] 05:48-0400 (33042) hematology on 2017-03-09 Basophils (Bld) 0.0 10*3/uL (no code) 0 - 0.3 10*3/uL 03-09-2017 Not Available [#/Vol] 05:48-0400 ([id number]) Basophils/100 0.30 % (no code) 0.5 - 1 % 03-09-2017 Not Avai lable WBC (Bld) 05:48-0400 (40798) Eosinophils 0.1 10*3/uL (no code) 0.05 - 0.5 03-09-2017 Not Sarah ilable (Bld) [#/Vol] 10*3/uL 05:48-0400 (75510) Eosinophils/100 0.8 % (no code) 1 - 4 % 03-09-2017 Not Av ailable WBC (Bld) 05:48-0400 ([id number]) Hematocrit (Bld) 42.0 % (no code) 36.1 - 50.3 % 03-09-2017 N ot Available [Volume 05:48-0400 (33907) fraction] Hemoglobin (Bld) 14.0 g/dL (no code) 12.1 - 17.2 g/dL 03-09-2017 Not Available [Mass/Vol] 05:48-0400 ([id number]) Lymphocytes 2.52 10*3/uL (no code) 0.9 - 2.9 03-09-2017 Not Sarah ilable (Bld) [#/Vol] 10*3/uL 05:48-0400 (37285) Lymphocytes/100 35.1 % (no code) 20 - 40 % 03-09-2017 Not Av ailable WBC (Bld) 05:48-0400 ([id number]) MCH (RBC) 31.3 pg (H) 27 - 31 pg 03-09-2017 Not Availab le [Entitic mass] 05:48-0400 (50355) MCV (RBC) 94.0 fL (no code) 80 - 100 fL 03-09-2017 Not Availa ble [Entitic vol] 05:48-0400 (97405) Monocytes (Bld) 0.9 10*3/uL (no code) 0.3 - 0.9 03-09-2017 Not Available [#/Vol] 10*3/uL 05:48-0400 ([id number]) Monocytes/100 12.1 % (H) 2 - 8 % 03-09-2017 Not Avai lable WBC (Bld) 05:480400 (10514) Neutrophils 3.71 10*3/uL (no code) 1.7 - 7 10*3/uL 03-09-2017 N ot Available (Bld) [#/Vol] 05:48-0400 (90323) Neutrophils/100 51.7 % (no code) 40 - 60 % 03-09-2017 Not Av ailable WBC (Bld) 05:480400 (41668) Platelets (Bld) 240 10*3/uL (no code) 150 - 450 03-09-2017 Not Available [#/Vol] 10*3/uL 05:480400 (25504) RBC (Bld) 4.47 10*6/uL (no code) 4.2 - 6.1 03-09-2017 Not Avail able [#/Vol] 10*6/uL 05:480400 (67223) WBC (Bld) 7.18 10*3/uL (no code) 3.5 - 10.5 03-09-2017 Not Avai lable [#/Vol] 10*3/uL 05:480400 (85793) cardiac on 2017-03-09 Cholesterol 231 mg/dL (no code) 180 - 200 mg/dL 03-09-2017 Not Available [Mass/Vol] 05:480400 (90782) Cholesterol in 63 mg/dL (no code) 03-09-2017 Not Availab le HDL [Mass/Vol] 05:480400 (65057) Cholesterol in 155 mg/dL (H) 0 - 100 mg/dL 03-09-2017 Not Available LDL [Mass/Vol] 05:480400 (98851) Triglyceride 66 mg/dL (no code) 0 - 150 mg/dL 03-09-2017 Not A vailable [Mass/Vol] 05:480400 ([id number]) Vital Signs Vital Sign Value Interpretation Reference Date Time Care [facility] (Normalized) (Normalized) Range Body height 162.56 cm (no code) cm 01-03-2015 [facility]FNA[facility]O [facility]AV[facility] 14:48-0500 22804 [facility] ([id number]) Body height 167.64 cm (no code) cm 01-25-2014 WOLFNAVARRO JAVED [facility] 15:13-0500 88616 [facility] ([id number]) Body 37.0 (no code) 04-18-2020 no name PENDING temperature 16:05-0400 [facility] (09155) Body 97.9 [degF] (no code) 97.8 - 99.0 02-23-[address] [facility] Temperature [degF] 16:52-0400 32515 [facility] ([id number]) Body 97 [degF] (no code) 97.8 - 99.0 02-09-2015 [facility] Temperature [degF] 14:08-0400 12272 [facility] ([id number]) Body 98.4 [degF] (no code) 97.8 - 99.0 01-03-[address] [facility] temperature [degF] 14:48-0500 36041 [facility] ([id number]) Body 97.8 [degF] (no code) 97.8 - 99.0 10-18-[address] [facility] Temperature [degF] 10:10-0500 17245 [facility] (50489) Body 97.8 [degF] (no code) 97.8 - 99.0 10-13-2014 [facility] Temperature [degF] 17:48-0500 83899 [facility] ([id number]) Body 97.9 [degF] (no code) 97.8 - 99.0 01-25-[address] [facility] temperature [degF] 15:13-0500 86324 [facility] ([id number]) Body weight 59.65 kg (no code) kg [facility] [place] [address] (82511) Body weight 59.74 kg (no code) kg 02-09-2015 [facility]:080[facility] [id number] [place] [address] (59808) Body weight 59.42 kg (no code) kg 01-03-2015 [facility] 14:480500 [address] [place] [address] (14843) Body weight 61.05 kg (no code) kg 10-18-2014 [facility]:100500 [id number] [place] [address] ([id number]) Body weight 60.7 kg (no code) kg 10-13-2014 HUSAM ORLANDO [facility] 17:48-[address] [place] [address] (73136) Body weight 58.7 kg (no code) kg 01-25-2014 [facility] 15:130500 [address] [place] [address] (59420) Height 162.56 cm (no code) cm 02-23-2015 [facility] 16:52-[id number] [place] [address] (14850) Height 162.56 cm (no code) cm 02-09-2015 [facility] 14:080400 [id number] [place] [address] (17410) Height 167.64 cm (no code) cm 10-18-2014 [facility] 10:100500 [address] [place] [address] (51366) Height 167.64 cm (no code) cm 10-13-2014 [facility] 17:480500 [id number] [place] [address] (97873) Interventions No Information Plan of Treatment The data below is from unstructured sources Activity Details Follow Up 3 Months Reason:depression Activity Details Follow Up prn Reason: Goals No Information Social History No Information Functional Status No Information Mental Status No Information Encounters Encounter Normalized Encounter Encounter Diagnosis Care Provi fritz Organization Date Type 06-18-2019 ([facility]) Shelter Acute on chronic FLO Red (no [facility] - systolic (congestive) phone) (no phon e) 06-18-2019 heart failure - 06-18-2019 05-14-2019 ([facility]) Shelter Pressure ulcer of WOLF OILVERA (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[facility] - right ankle, stage 2 phone) (no phone ) 05-14-2019 - 05-14-2019 04-23-2019 ([facility]) Shelter Constipation, FLO COLEMAN ( no [facility] - unspecified phone) (no phone) 04-23-2019 - 04-23-2019 02-19-2019 ([facility]) Shelter Pneumonia, unspecified WOLF TIMOTHY (no [facility] - organism phone) (no phone) 02-19-2019 - 02-19-2019 12-18-2018 ([facility]) Shelter Other specified WOLF SY N (no [facility] - depressive episodes phone) (no phone) 12-18-2018 - 12-18-2018 11-20-2018 ([facility]) Shelter Generalized anxiety WOLF BR ENNAN (no [facility] - disorder phone) (no phone) 11-20-2018 - 11-20-2018 10-02-2018 ([facility]) Shelter Generalized anxiety WOLF BR ENNAN (no [facility] - disorder phone) (no phone) 10-02-2018 - 10-02-2018 09-18-2018 ([facility]) Shelter Generalized anxiety WOLF BR ENNAN (no [facility] - disorder phone) (no phone) 09-18-2018 - 09-18-2018 09-04-2018 ([facility]) Shelter Other WOLF TIMOTHY (n o [facility] - obsessive-compulsive phone) (no phone ) 09-04-2018 disorder - 09-04-2018 08-28-2018 ([facility]) Shelter no information WOLF TIMOTHY (no [facility] - phone) (no phone) 08-28-2018 - 08-28-2018 08-14-2018 ([facility]) Shelter Other WOLF TIMOTHY (n o [facility] - obsessive-compulsive phone) (no phone ) 08-14-2018 disorder - 08-14-2018 08-07-2018 ([facility]) Shelter Other WOLF TIMOTHY (n o [facility] - obsessive-compulsive phone) (no phone ) 08-07-2018 disorder - 08-07-2018 06-12-2018 ([facility]) Shelter Left lower quadrant WOLF PURCELL (no [facility] - pain phone) (no phone) 06-12-2018 - 06-12-2018 06-30-2018 [facility] no information WOLF TIMOTHY (no [facility] - phone) (no phone) 06-30-2018 - 06-30-2018 06-12-2018 [facility] no information WOLF TIMOTHY (no [facility] - phone) (no phone) 06-12-2018 - 06-12-2018 06-10-2018 [facility] no information WOLF TIMOTHY (no [facility] - phone) (no phone) 06-10-2018 - 06-10-2018 06-02-2018 [facility] no information WOLF TIMOTHY (no [facility] - phone) (no phone) 06-02-2018 - 06-02-2018 05-22-2018 [facility] no information WOLF TIMOTHY (no [facility] - phone) (no phone) 05-22-2018 - 05-22-2018 05-16-2018 [facility] no information WOLF TIMOTHY (no [facility] - phone) (no phone) 05-16-2018 - 05-16-2018 04-18-2020 Emergency department no information MEI XIE MD [facility] patient visit (no phone) [facility] (no phone) 01-25-2020 Emergency department no information CHANNING ABDI MD (no [facility] patient visit phone) [facility] (no phone) 01-08-2020 Emergency department no information CHANNING ABDI MD (no [facility] - patient visit phone) [facility] 01-08-2020 (no phone) 06-06-2019 Emergency department no information no name no organization name patient visit 02-11-2019 Emergency department no information no name no organization name patient visit 02-09-2019 Emergency department no information no name no organization name - patient visit 02-09-2019 02-08-2019 Emergency department no information MEI DOAN [facility] - patient visit (no phone) [facility] 02-09-2019 (no phone) 08-20-2018 Emergency department no information no name no organization name - patient visit 08-20-2018 08-20-2018 Emergency department no information MANUEL Chu MELY VELIZP (no [facility] - patient visit phone) [facility] 08-20-2018 (no phone) 07-30-2017 Emergency department no information no name no organization name - patient visit 07-30-2017 07-30-2017 Emergency department no information [facility] [address] - patient visit (no phone) [facility] 07-30-2017 (no phone) 03-08-2017 Emergency department no information VAN MUÑOZ (no [facility] [address] - patient visit phone) [facility] 03-08-2017 (no phone) 08-10-2016 Emergency department no information no name no organization name - patient visit 08-10-2016 08-09-2016 Emergency department no information [facility] [address] - patient visit (no phone) [facility] 08-10-2016 (no phone) 03-17-2020 Evaluation and no information ALEC LUCAS ([facility] - management of phone) Pb liu (no 03-29-2020 inpatient Tartaglione (no phone) phone) Alec Tartaglione (no phone) Alec Tartaglione (no phone) Alec Tartaglione (no phone) Alec Tartaglione (no phone) ALEC TARTAGLIONE (no phone) Alec Tartaglione (no phone) Alec Tartaglione (no phone) Alec Tartaglione (no phone) Alec Tartaglione (no phone) Alec Tartaglione (no phone) Alec Tartaglione (no phone) Alec Tartaglione (no phone) Alec Tartaglleon (no phone) Alec Manzanoglione (no phone) 01-25-2020 Evaluation and no information AILEEN MUNIZ DO (no [facility] - management of phone) [facility] 01-28-2020 inpatient (no phone) 06-06-2019 Evaluation and no information no name no organ ization name - management of 06-10-2019 inpatient 06-06-2019 Evaluation and no information MELANY STOKES MD (no [facility] - management of phone) [facility] 06-10-2019 inpatient (no phone) 02-11-2019 Evaluation and no information no name no organ ization name - management of 02-13-2019 inpatient 02-11-2019 Evaluation and no information AILEEN MUNIZ DO (no [facility] - management of phone) [facility] 02-13-2019 inpatient (no phone) 03-09-2017 Evaluation and [...] [facility] - management of phone) [facility] 05-12-2016 inpatient (no phone) 04-27-2016 Evaluation and no information no name no organ ization name - management of 05-02-2016 inpatient 04-27-2016 Evaluation and no information KADY MATTHEWS MD (no [facility] - management of phone) [facility] 05-02-2016 inpatient (no phone) 02-06-2016 Evaluation and no information no name no organ ization name - management of 02-07-2016 inpatient 02-06-2016 Evaluation and no information FRED GIBBONS MD (n o [facility] - management of phone) [facility] 02-07-2016 inpatient (no phone) 07-25-2015 Evaluation and no information no name no organ ization name - management of 07-27-2015 inpatient 07-25-2015 Evaluation and no information FLO COLEMAN MD (n o [facility] - management of phone) [facility] 07-27-2015 inpatient (no phone) 11-05-2014 Evaluation and no information KADY MATTHEWS MD (no [facility] - management of phone) [facility] 11-07-2014 inpatient (no phone) 02-25-2020 [facility] Generalized anxiety WOLF B RENNAN (no [facility] disorder phone) (no phone) 01-21-2020 [facility] Generalized anxiety WOLF B RENNAN (no [facility] disorder phone) (no phone) 01-14-2020 [facility] 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 12-24-2019 [facility] Unspecified mood WOLF CRISTINA OLIVERA (no [facility] [affective] disorder phone) (no phone) 11-19-2019 [facility] Cough WOLF TIMOTHY ( no [facility] phone) (no phone) 10-22-2019 [facility] Other WOLF TIMOTHY ( no [facility] obsessive-compulsive phone) (no phone) disorder 08-13-2019 [facility] 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[facility] - 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) 08-13-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 - without angina 08-13-2019 pectoris 06-03-2018 [facility] Pain in left hip WOLF HAFSAJordyn OLIVERA (no [facility] - phone) (no phone) 06-03-2018 - 06-03-2018 05-29-2018 [facility] no information WOLF SY N (no [facility] - phone) (no phone) 05-29-2018 - 05-29-2018 [...] (no [facility] - procedure phone) [facility] 01-28-2020 (no phone) 01-21-2020 Patient encounter no information [facility]AVEDAN [facility] (no phone) 01-14-2020 Patient encounter no information WOLF Luis Eduardo TIMOTHY ( no [facility] procedure phone) [facility] (no phone) 01-08-2020 Patient encounter no information CHANNING ABDI MD (no [facility] procedure phone) [facility] (no phone) 12-24-2019 Patient encounter no information WOLF Luis Eduardo AGUIRRE ( no [facility] procedure phone) [facility] (no phone) 06-18-2019 Patient encounter no information no name no or ganization name procedure 06-06-2019 Patient encounter no information no name no or ganization name - procedure 06-10-2019 06-02-2019 Patient encounter no information no name no or ganization name procedure 06-02-2019 Patient encounter no information MARK LUNA I [facility] procedure (no phone) [facility] (no phone) 02-11-2019 Patient encounter no information [...] o [facility] - procedure phone) [facility] 09-18-2017 (no phone) 09-16-2017 Patient encounter no information SHANDA SAINI MD (n o [facility] - procedure phone) [facility] 09-16-2017 (no phone) 07-30-2017 Patient encounter no information no name no or ganization name procedure 09-05-2015 Patient encounter no information WOLF Gan [facility] procedure (no phone) [facility] g (no phone) 07-27-2015 Patient encounter no information JERMAINE K [facility] - procedure SCARLETT PA (no [facility] 08-30-2015 phone) (no phone) Patient encounter no information no name no organizat ion name procedure 08-14-2018 [facility] nursing facil no information no name no o rganization name care/day minor complj 15 min 08-07-2018 [facility] nursing facil no information no name no o rganization name care/day minor complj 15 min 05-08-2018 [facility] nursing facil no information no name no o rganization name care/day minor complj 15 min 04-10-2018 [facility] nursing facil no information no name no o rganization name care/day minor complj 15 min 02-13-2018 [facility] nursing facil no information no name no o rganization name care/day minor complj 15 min 01-23-2018 [facility] nursing facil no information no name no o rganization name care/day minor complj 15 min 01-02-2018 [facility] nursing facil no information no name no o rganization name care/day minor complj 15 min 11-26-2017 [facility] nursing facil no information no name no o rganization name care/day minor complj 15 min 10-02-2018 [facility] nursing facility no information no name n o organization name care/day e/m stable 10 min 04-14-2020 Telephone encounter no information WOLF AGUIRRE ( no [facility] phone) (no phone) 04-08-2020 Telephone encounter Generalized anxiety WOLF CRISTINA OLIVERA (no [facility] disorder phone) (no phone) 04-04-2020 Telephone encounter no information WOLF AGUIRRE ( no [facility] phone) (no phone) 04-01-2020 Telephone encounter no information WOLF TIMOTHY ( no [facility] phone) (no phone) 03-29-2020 Telephone encounter no information WOLF TIMOTHY ( no [facility] phone) (no phone) 03-17-2020 Telephone encounter no information WOLF TIMOTHY ( no [facility] phone) (no phone) 03-16-2020 Telephone encounter Nausea WOLF TIMOTHY (no [facility] phone) (no phone) 03-11-2020 Telephone encounter no information WOLF TIMOTHY ( no [facility] phone) (no phone) 03-10-2020 Telephone encounter Repeated falls WOLF TIMOTHY ( no [facility] phone) (no phone) 03-09-2020 Telephone encounter no information WOLF TIMOTHY ( no [facility] phone) (no phone) 03-08-2020 Telephone encounter Generalized anxiety WOLF BREN NAN (no [facility] disorder phone) (no phone) 03-03-2020 Telephone encounter no information WOLF TIMOTHY ( no [facility] phone) (no phone) 02-26-2020 Telephone encounter no information WOLF TIMOTHY ( no [facility] phone) (no phone) 02-24-2020 Telephone encounter no information WOLF TIMOTHY ( no [facility] phone) (no phone) 02-22-2020 Telephone encounter Weakness WOLF TIMOTHY (no [facility] phone) (no phone) 02-19-2020 Telephone encounter no information FLO COLEMAN (n o [facility] phone) (no phone) 02-09-2020 Telephone encounter Generalized anxiety WOLF BREN NAN (no [facility] disorder phone) (no phone) 02-07-2020 Telephone encounter Nausea WOLF TIMOTHY (no [facility] phone) (no phone) 02-02-2020 Telephone encounter Functional dyspepsia WOLF HAFSA NNAN (no [facility] phone) (no phone) 2020 Telephone encounter no information FLO COLEMAN (n o [facility] phone) WOLF TIMOTHY (no phone) (no phone) 01-26-2020 Telephone encounter no information WOLF TIMOTHY ( no [facility] phone) (no phone) 01-24-2020 Telephone encounter no information WOLF TIMOTHY ( no [facility] phone) (no phone) 01-22-2020 Telephone encounter no information WOLF TIMOTHY ( no [facility] phone) (no phone) 01-19-2020 Telephone encounter no information WOLF TIMOTHY ( no [facility] phone) (no phone) 01-11-2020 Telephone encounter no information WOLF TIMOTHY ( no [facility] phone) (no phone) 12-30-2019 Telephone encounter Atherosclerotic heart WOLF 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 12-25-2019 Telephone encounter no information WOLF TIMOTHY ( no [facility] phone) (no phone) 11-18-2019 Telephone encounter no information [facility]OLF TIMOTHY ( [facility] phone) (no phone) 10-23-2019 Telephone encounter no information WOLF TIMOTHY ( no [facility] phone) (no phone) 09-30-2019 Telephone encounter no information FLO COLEMAN (n o [facility] phone) (no phone) 07-31-2019 Telephone encounter no information WOLF TIMOTHY ( no [facility] - phone) (no phone) 07-31-2019 - 07-31-2019 07-27-2019 Telephone encounter no information [facility] 07-27-2019 - 07-27-2019 07-24-2019 Telephone encounter no information [facility] TIMOTHY ( [facility] (no phone) 07-24-2019 - 07-24-2019 07-23-2019 Telephone encounter no information [facility] 08-22-201807-23-2019 06-10-2019 Telephone encounter no information WOLF TIMOTHY ( no [facility] - phone) (no phone) 06-10-2019 - 06-10-2019 06-05-2019 Telephone encounter no information WOLF TIMOTHY ( no [facility] - phone) (no phone) 06-05-2019 - 06-05-2019 06-03-2019 Telephone encounter no information WOLF TIMOTHY ( no [facility] - phone) (no phone) 06-03-2019 - 06-03-2019 06-01-2019 Telephone encounter no information WOLF TIMOTHY ( no [facility] - phone) (no phone) 06-01-2019 - 06-01-2019 05-07-2019 Telephone encounter no information WOLF TIMOTHY ( no [facility] - phone) (no phone) 05-07-2019 - 05-07-2019 03-13-2019 Telephone encounter no information WOLF TIMOTHY ( no [facility] - phone) (no phone) 03-13-2019 - 03-13-2019 03-12-2019 Telephone encounter no information WOLF TIMOTHY ( no [facility] - phone) (no phone) 03-12-2019 - 03-12-2019 03-11-2019 Telephone encounter no information WOLF TIMOTHY ( no [facility] - phone) (no phone) 03-11-2019 - 03-11-2019 03-03-2019 Telephone encounter no information WOLF TIMOTHY ( no [facility] - phone) (no phone) 03-03-2019 - 03-03-2019 02-24-2019 Telephone encounter no information WOLF TIMOTHY ( no [facility] - phone) (no phone) 02-24-2019 - 02-24-2019 02-23-2019 Telephone encounter no information WOLF TIMOTHY ( no [facility] - phone) (no phone) 02-23-2019 - 02-23-2019 02-10-2019 Telephone encounter no information WOLF TIMOTHY ( no [facility] - phone) (no phone) 02-10-2019 - 02-10-2019 02-04-2019 Telephone encounter no information WOLF TIMOTHY ( no [facility] - phone) (no phone) 02-04-2019 - 02-04-2019 01-21-2019 Telephone encounter no information WOLF TIMOTHY ( no [facility] - phone) (no phone) 01-21-2019 - 01-21-2019 12-24-2018 Telephone encounter no information WOLF TIMOTHY ( no [facility] - phone) (no phone) 12-24-2018 - 12-24-2018 12-09-2018 Telephone encounter no information WOLF TIMOTHY ( no [facility] - phone) (no phone) 12-09-2018 - 12-09-2018 12-08-2018 Telephone encounter no information [facility] 12-08-2018 - 12-08-2018 11-07-2018 Telephone encounter no information WOLF ITMOTHY ( no [facility] - phone) (no phone) 11-07-2018 - 11-07-2018 10-31-2018 Telephone encounter no information WOLF TIMOTHY ( no [facility] - phone) (no phone) 10-31-2018 - 10-31-2018 10-29-2018 Telephone encounter no information WOLF TIMOTHY ( no [facility] - phone) (no phone) 10-29-2018 - 10-29-2018 10-28-2018 Telephone encounter no information WOLF TIMOTHY ( no [facility] - phone) (no phone) 10-28-2018 - 10-28-2018 10-17-2018 Telephone encounter no information WOLF TIMOTHY ( no [facility] - phone) (no phone) 10-17-2018 - 10-17-2018 10-06-2018 Telephone encounter no information WOLF TIMOTHY ( no [facility] - phone) (no phone) 10-06-2018 - 10-06-2018 09-30-2018 Telephone encounter no information WOLF TIMOTHY ( no [facility] - phone) (no phone) 09-30-2018 - 09-30-2018 09-23-2018 Telephone encounter no information WOLF TIMOTHY ( no [facility] - phone) (no phone) 09-23-2018 - 09-23-2018 09-22-2018 Telephone encounter no information WOLF TIMOTHY ( no [facility] - phone) (no phone) 09-22-2018 - 09-22-2018 09-18-2018 Telephone encounter no information WOLF TIMOTHY ( no [facility] - phone) (no phone) 09-18-2018 - 09-18-2018 09-17-2018 Telephone encounter no information WOLF TIMOTHY ( no [facility] - phone) (no phone) 09-17-2018 - 09-17-2018 09-11-2018 Telephone encounter no information WOLF TIMOTHY ( no [facility] - phone) (no phone) 09-11-2018 - 09-11-2018 09-08-2018 Telephone encounter no information WOLF TIMOTHY ( no [facility] - phone) (no phone) 09-08-2018 - 09-08-2018 09-04-2018 Telephone encounter no information WOLF TIMOTHY ( no [facility] - phone) (no phone) 09-04-2018 - 09-04-2018 09-02-2018 Telephone encounter no information WOLF TIMOTHY ( no [facility] - phone) (no phone) 09-02-2018 - 09-02-2018 09-01-2018 Telephone encounter no information WOLF TIMOTHY ( no [facility] - phone) (no phone) 09-01-2018 - 09-01-2018 08-28-2018 Telephone encounter Elevated urine levels WOLF BR ENNAN (no [facility] - of drugs, medicaments phone) (no phon e) 08-28-2018 and biological - substances 08-28-2018 08-25-2018 Telephone encounter no information WOLF TIMOTHY ( no [facility] - phone) (no phone) 08-25-2018 - 08-25-2018 08-18-2018 Telephone encounter Irritable bowel WOLF TIMOTHY (no [facility] - syndrome with diarrhea phone) (no mihai ne) 08-18-2018 - 08-18-2018 08-14-2018 Telephone encounter no information WOLF AGUIRRE ( no [facility] - phone) (no phone) 08-14-2018 - 08-14-2018 08-06-2018 Telephone encounter no information WOLF AGUIRRE ( no [facility] - phone) (no phone) 08-06-2018 - 08-06-2018 07-25-2018 Telephone encounter no information WOLF AGUIRRE ( [facility] - phone) (no phone) 07-25-2018 - 07-25-2018 02-25-2020 no information Encounter for other no name (no phone) preprocedural examination no information Encounter for dental [...] Bruce 2011 History Surgical triple bypass surgery 2003 History Surgical S/P left hip IM Nail (Intertrechanteric hip fx) 04/28/16 History Surgical egd 08/2019 History Hospitaliz surgeries ation History Hospitaliz Hypertension ation History Hospitaliz ER for a concussion 11/24/15 ation History Hospitaliz Intertrechanteric hip [facility]x 04/27/16 [facility] Hx of 3 inpatient psych treatments in oct 2016 ation past [facility] [place] [id number] general Narrative - Reported Note Type [...] Bruce 2011 History Surgical triple bypass surgery 2003 History Surgical S/P left hip IM Nail (Intertrechanteric hip fx) 04/28/16 History Surgical egd 08/2019 History Hospitaliz surgeries ation History Hospitaliz Hypertension ation History Hospitaliz ER for a concussion 11/24/15 ation [facility] Intertrechanteric hip fx 04/27/16 ation [facility] ([facility] 2 times) Hx of 3 inpatient psych treatments in oct 2016 ation past in [place] [id number] Summary Purpose eClinicalWorks SubmissioneClinicalWorks SubmissioneClinicalWorks SubmissioneClinicalWorks SubmissioneClinicalWorks SubmissioneClinicalWorks SubmissioneClinicalWorks SubmissioneClinicalWorks SubmissioneClinicalWorks SubmissioneClinicalWorks SubmissioneClinicalWorks SubmissioneClinicalWorks SubmissioneClinicalWorks SubmissioneClinicalWorks SubmissioneClinicalWorks SubmissioneClinicalWorks SubmissioneClinicalWorks SubmissioneClinicalWorks SubmissioneClinicalWorks SubmissioneClinicalWorks SubmissioneClinicalWorks SubmissioneClinicalWorks SubmissioneClinicalWorks SubmissioneClinicalWorks SubmissioneClinicalWorks SubmissioneClinicalWorks SubmissioneClinicalWorks SubmissioneClinicalWorks SubmissioneClinicalWorks Submission Additional Source Comments This clinical document has been generated using Pure [employer] software that has been certified by the Office of the National Coordinator for Health Information Technology (ONC 15.99.04.3023.Diam.31.00.0.584611) and the National Committee for Improvement Advisor (NCQA, as an eMeasure certified technology). FOR [...] BASED ON T HE PRIMARY CLINICAL RECORDS. [employer]. provides no warranty or guara ntee of [...] 2003 Surgical History S/P left hip IM Jenn[facility] (Intertrechanteric hip fx) 04/28/16 Hospitalization History surgeries Hospitalization History Hypertension Hospitalization History ER for a concussio n 11/24/15 Hospitalization History Intertrechan teric hip fx 04/27/16 Hospitalization History [facility] oct 2016 [facility]ization [facility] [...] Intertrechan teric hip fx 04/27/16 [facility]ization [facility] Hx of 3 inpatient psych treatments in past in [place] oct 2016 Hospitalization History [facility] [...] summary NHmedication reconciliationRefill req uestNursing home refillEMR-Migmedication reconciliation--[id number]-[id number]-Chas [id number] [facility]
--- OUTSIDE RECORDS SUMMARY | 2020-04-18 22:16 | XMS REPORT | Encounter Summary ---
Author [facility] Organization [facility] [place]Patria Weinstein [facility] Address Unknown Phone Unavailable Care Team Providers Care Java Developer Name Role Phone Conversion, History PCP Unavailable [...]
--- NOTE | 2020-04-18 22:38 | NUR ---
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
--- OUTSIDE RECORDS SUMMARY | 2020-04-18 22:44 | XMS REPORT | Continuity of Care Document ---
Author Organization Unknown Address Unknown Phone Unavailable Allergies Active Description Code Type Severity Reaction Onset Reported/Identified Relationship to Patient Clinical Status Yes NKANo Known Allergies NKA Miscellaneous Allergy Unknown N/A 10/07/2006 Yes clindamycin [id number] Drug Aller gy Unknown N/A 02/11/2019 Yes morphine [id number] Drug Allergy Unknown N/A 02/11/2019 Medications There [...] DO, MORAIMA K 787.91 Diarrhea 09/01/2008 [facility], WOLF S 462 Pharyngitis Acute 09/01/2008 [facility], WOLF S 787.91 Diarrhea 09/01/2008 [facility] [facility] [employer], WOLF S 462 Pharyngitis Acute 09/01/2008 [facility] [facility] [employer], WOLF S 787.91 Diarrhea 09/01/2008 [facility], WOLF S 462 Pharyngitis Acute 09/01/2008 [facility] [employer], WOLF S 787.91 Diarrhea 09/01/2008 [facility], WOLF S 462 Pharyngitis Acute 09/01/2008 [facility] [facility] [employer], WOLF S 787.91 Diarrhea 09/01/2008 [facility], WOLF S 462 Pharyngitis Acute 09/01/2008 [facility] [facility] [employer], WOLF S 787.91 Diarrhea 09/01/2008 WHITE DDS, MELISSA J 46 2 Pharyngitis Acute 09/01/2008 WHITE DDS, MELISSA J 787.91 Diarrhea 09/01/2008 TAN DDSMARIA LUISA 46 2 Pharyngitis Acute 09/01/2008 TAN DDS, MARIA LUISA 787.91 Diarrhea 09/01/2008 JOHANNY KAN, HUSAM Hall 46 2 Pharyngitis Acute 09/01/2008 HUSAM [place]LANDO APRN 787.91 Diarrhea 09/01/2008 [facility], WOLF S 462 Pharyngitis Acute 09/01/2008 [facility] [employer], WOLF S 787.91 Diarrhea 09/01/2008 [facility], WOLF S 462 Pharyngitis Acute 09/01/2008 [facility], WOLF S 787.91 Diarrhea 09/01/2008 CASSIE DOMINGUEZ, KADY Raymundo 462 Pharyngitis Acute 09/01/2008 CASSIE DOMINGUEZ, KADY Raymundo 787. 91 Diarrhea 09/01/2008 TIMOTHY GAINESN, WOLF S 462 Pharyngitis Acute 09/01/2008 [facility], WOLF S 787.91 Diarrhea 09/01/2008 TIMOTHY GAINESN, WOLF S 462 Pharyngitis Acute 09/01/2008 [facility] [employer], WOLF S 787.91 Diarrhea 09/01/2008 TAN DDS, [...] AGUIRRE APRNNDA S 695.3 Rosacea 02/11/2009 [facility], WOLF S 695.3 Rosacea 02/11/2009 TIMOTHYSTARLA GAINESN, WOLF S 695.3 Rosacea 02/11/2009 GAGANDEEP WILCOXS, MELISSA Raymundo 69 5.3 Rosacea 02/11/2009 BRITNEY WILCOXS, MARIA LUISA 69 5.3 Rosacea 02/11/2009 HUSAM ORLANDO APRN 69 5.3 Rosacea 02/11/2009 [facility], WOLF S 695.3 Rosacea 02/11/2009 TIMOTHY GAINESN, [...] S 008.62 Gastroenteritis Viral Adenovirus 03/31/2009 [facility], WOLF S 008.62 Gastroenteritis Viral Adenovirus 03/31/2009 TIMOTHY[facility]LA KAN, WOLF S 008.62 Gastroenteritis Viral Adenovirus 03/31/2009 [facility], WOLF S 008.62 Gastroenteritis Viral Adenovirus 03/31/2009 [facility], WOLF S 008.62 Gastroenteritis Viral Adenovirus 03/31/2009 [...] K 599.0 Urinary Tract Infection 06/29/2009 [facility], WOLF S 599.0 Urinary Tract Infection 06/29/2009 [facility], WOLF S 599.0 Urinary Tract Infection 06/29/2009 [facility], WOLF S 599.0 Urinary Tract Infection 06/29/2009 [facility], WOLF S 599.0 Urinary Tract Infection 06/29/2009 [facility], WOLF S 599.0 Urinary Tract Infection 06/29/2009 GAGANDEEP WILCOXS, MELISSA Raymundo 59 9.0 Urinary Tract Infection 06/29/2009 MARIA LUISA TAN DDS 59 9.0 Urinary Tract Infection 06/29/2009 HUSAM ORLANDO APRN 59 9.0 Urinary Tract Infection 06/29/2009 [facility], WOLF S 599.0 Urinary Tract Infection 06/29/2009 [facility], WOLF S 599.0 Urinary Tract Infection 06/29/2009 KADY MATTHEWS MD 599. 0 Urinary Tract Infection 06/29/2009 [facility], WOLF S 599.0 Urinary Tract Infection 06/29/2009 [facility], WOLF S 599.0 Urinary Tract Infection 06/29/2009 MARIA LUISA TAN DDS 59 9.0 Urinary Tract Infection 06/29/2009 MAX WILCOXS, KATHYA Chopra 599. 0 Urinary Tract Infection 08/15/2009 272.4 HYPE RLIPIDEMIA UNSPECIFIED 08/15/2009 272.4 HYPE RLIPIDEMIA UNSPECIFIED 08/15/2009 LJ WILCOXS, KAELA Rdz 27 2.4 HYPERLIPIDEMIA UNSPECIFIED 08/15/2009 HUSAM ORLANDO APRN 27 2.4 HYPERLIPIDEMIA UNSPECIFIED 08/15/2009 [facility], WOLF S 272.4 HYPERLIPIDEMIA UNSPECIFIED 08/15/2009 272.4 HYPE RLIPIDEMIA UNSPECIFIED 08/15/2009 MORAIMA NICOLE DO 272.4 HYPERLIPIDEMIA UNSPECIFIED 08/15/2009 272.4 HYPE RLIPIDEMIA UNSPECIFIED 08/15/2009 272.4 HYPE RLIPIDEMIA UNSPECIFIED 08/15/2009 272.4 HYPE RLIPIDEMIA UNSPECIFIED 08/15/2009 272.4 HYPE RLIPIDEMIA UNSPECIFIED 08/15/2009 NORMA WILCOXS, JUAREZ M 272.4 HYPERLIPIDEMIA UNSPECIFIED 08/15/2009 NORMA WILCOXS, JUAREZ Pierre 272.4 HYPERLIPIDEMIA UNSPECIFIED 08/15/2009 MORAIMA NICOEL DO K 272.4 HYPERLIPIDEMIA UNSPECIFIED 08/15/2009 [facility], WOLF S 272.4 HYPERLIPIDEMIA UNSPECIFIED 08/15/2009 [facility], WOLF S 272.4 HYPERLIPIDEMIA UNSPECIFIED 08/15/2009 [facility], WOLF S 272.4 HYPERLIPIDEMIA UNSPECIFIED 08/15/2009 [facility], WOLF S 272.4 HYPERLIPIDEMIA UNSPECIFIED 08/15/2009 [facility]OT[facility]LA [...] F V58.69 Medication High Risk 09/07/2009 [facility], HUSAM T 300.00 Anxiety State, Unspecified 09/07/2009 [facility], HUSAM T V58.69 Medication High Risk 09/07/2009 [facility], WOLF S 300.00 Anxiety State, Unspecified 09/07/2009 [facility], WOLF S V58.69 Medication High Risk 09/07/2009 [...] K V58.69 Medication High Risk 09/07/2009 [facility], WOLF S 300.00 Anxiety State, Unspecified 09/07/2009 [facility], WOLF S V58.69 Medication High Risk 09/07/2009 [facility], WOLF S 300.00 Anxiety State, Unspecified 09/07/2009 [facility], WOLF S V58.69 Medication High Risk 09/07/2009 [facility], WOLF S 300.00 Anxiety State, Unspecified 09/07/2009 [facility], WOLF S V58.69 Medication High Risk 09/07/2009 [facility], WOLF S 300.00 Anxiety State, Unspecified 09/07/2009 [facility], WOLF S V58.69 Medication High Risk 09/07/2009 [facility], WOLF S 300.00 Anxiety State, Unspecified 09/07/2009 [facility], WOLF S V58.69 Medication High Risk 09/07/2009 WHITE DDS, MELISSA J 300.00 Anxiety State, Unspecified 09/07/2009 WHITE DDS, MELISSA J V58.69 Medication High Risk 09/07/2009 TAN DDS, MARIA LUISA 300.00 Anxiety State, Unspecified 09/07/2009 TAN DDS, MARIA LUISA V58.69 Medication High Risk 09/07/2009 [facility], HUSAM T 300.00 Anxiety State, Unspecified 09/07/2009 [facility], HUSAM T V58.69 Medication High Risk 09/07/2009 [facility], WOLF S 300.00 Anxiety State, Unspecified 09/07/2009 [facility], WOLF S V58.69 Medication High Risk 09/07/2009 [facility], WOLF S 300.00 Anxiety State, Unspecified 09/07/2009 [facility], WOLF S V58.69 Medication High Risk 09/07/2009 CASSIE DOMINGUEZ, KADY Raymundo 300. 00 Anxiety State, Unspecified 09/07/2009 KADY MATTHEWS MD V58. 69 Medication High Risk 09/07/2009 [facility], WOLF S 300.00 Anxiety State, Unspecified 09/07/2009 [facility], WOLF S V58.69 Medication High Risk 09/07/2009 [facility], WOLF S 300.00 Anxiety State, Unspecified 09/07/2009 [facility], WOLF S V58.69 Medication High Risk 09/07/2009 [...] Pain In Joint, Shoulder Region 11/10/2009 [facility], WOLF S 719.41 Pain In Joint, Shoulder Region 11/10/2009 [facility], WOLF S 719.41 Pain In Joint, Shoulder Region 11/10/2009 [facility], WOLF S 719.41 Pain In Joint, Shoulder [...] Irri table Bowel Syndrome 12/29/2009 NORMA DDS, JURAEZ M 3 11 DEPRESSIVE DISORDER, NOT ELSEWHERE CLASSIFIED 12/29/2009 NORMA DDS, JUAREZ Pierre 564.1 Irritable Bowel Syndrome 12/29/2009 NORMA DDS, JUAREZ M 3 11 DEPRESSIVE DISORDER, NOT ELSEWHERE CLASSIFIED 12/29/2009 NORMA DDS, JUAREZ M 564.1 Irritable Bowel Syndrome 12/29/2009 NICOLE DO, MORAIMA K 311 DEPRESSIVE DISORDER, NOT ELSEWHERE CLASSIFIED 12/29/2009 NICOLE DO, MORAIMA K 564.1 Irritable Bowel Syndrome 12/29/2009 [facility], WOLF S 311 DEPRESSIVE DISORDER, NOT ELSEWHERE CLASSIFIED 12/29/2009 [facility], WOLF S 564.1 Irritable Bowel Syndrome 12/29/2009 [facility], WOLF S 311 DEPRESSIVE DISORDER, NOT ELSEWHERE CLASSIFIED 12/29/2009 [facility], WOLF S 564.1 Irritable Bowel Syndrome 12/29/2009 [facility], WOLF S 311 DEPRESSIVE DISORDER, NOT ELSEWHERE CLASSIFIED 12/29/2009 [facility], WOLF S 564.1 Irritable Bowel Syndrome 12/29/2009 [facility], WOLF S 311 DEPRESSIVE DISORDER, NOT ELSEWHERE CLASSIFIED 12/29/2009 [facility], WOLF S 564.1 Irritable Bowel Syndrome 12/29/2009 [facility], WOLF S 311 DEPRESSIVE DISORDER, NOT ELSEWHERE CLASSIFIED 12/29/2009 [facility], WOLF S 564.1 Irritable Bowel Syndrome 12/29/2009 [...] ORLANDO APRN 787.02 Nausea Alone 01/27/2010 [facility], WOLF S 427.89 Other Specified Cardiac Dysrhythmias [...] WOLF S 787.02 Nausea Alone 01/27/2010 [facility], WOLF S 427.89 Other Specified Cardiac Dysrhythmias 01/27/2010 [facility], WOLF S 787.02 Nausea Alone 01/27/2010 [facility], WOLF S 427.89 Other Specified Cardiac Dysrhythmias 01/27/2010 [facility], WOLF S 787.02 Nausea Alone 01/27/2010 TIMOTHY GAINESN, WOLF S 427.89 Other Specified Cardiac Dysrhythmias 01/27/2010 TIMOTHY KAN, WOLF S 787.02 Nausea Alone 01/27/2010 TIMOTHY KAN, WOLF S 427.89 Other Specified Cardiac Dysrhythmias 01/27/2010 [facility], WOLF S 787.02 Nausea Alone 01/27/2010 WHITE [...] 427.89 Other Specified Cardiac Dysrhythmias 01/27/2010 [facility], WOLF S 787.02 Nausea Alone 01/27/2010 TAN [...] 78 1.0 Abnormal Involuntary Movements 02/03/2010 [facility], WOLF S 781.0 Abnormal Involuntary Movements 02/03/2010 [...] K 781.0 Abnormal Involuntary Movements 02/03/2010 [facility], WOLF S 781.0 Abnormal Involuntary Movements 02/03/2010 [facility], WOLF S 781.0 Abnormal Involuntary Movements 02/03/2010 [facility], WOLF S 781.0 Abnormal Involuntary Movements 02/03/2010 [facility], WOLF S 781.0 Abnormal Involuntary Movements 02/03/2010 [facility], WOLF S 781.0 Abnormal Involuntary Movements 02/03/2010 GAGANDEEP DDS, MELISSA J 78 1.0 Abnormal Involuntary Movements 02/03/2010 TAN DDS, MARIA LUISA 78 1.0 Abnormal Involuntary Movements 02/03/2010 HUSAM ORLANDO APRN T 78 1.0 Abnormal Involuntary Movements 02/03/2010 [facility], WOLF S 781.0 Abnormal Involuntary Movements 02/03/2010 [facility], WOLF S 781.0 Abnormal Involuntary Movements 02/03/2010 KADY MATTHEWS MD J 781. 0 Abnormal Involuntary Movements 02/03/2010 [facility], WOLF S 781.0 Abnormal Involuntary Movements 02/03/2010 [...] M 780.52 Insomnia, Unspecified 02/06/2010 NICOLE DO, MOARIMA K 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 02/06/2010 NICOLE DO, MORAIMA K 780.52 Insomnia, Unspecified 02/06/2010 [facility], WOLF S 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 02/06/2010 [facility], WOLF S 780.52 Insomnia, Unspecified 02/06/2010 [facility], WOLF S 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 02/06/2010 [facility], WOLF S 780.52 Insomnia, Unspecified 02/06/2010 [facility], WOLF S 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 02/06/2010 [facility], WOLF S 780.52 Insomnia, Unspecified 02/06/2010 [facility], WOLF S 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 02/06/2010 [facility], WOLF S 780.52 Insomnia, Unspecified 02/06/2010 [facility], WOLF S 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 02/06/2010 [facility], WOLF S 780.52 Insomnia, Unspecified 02/06/2010 MELISSA [...] 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 02/06/2010 [facility], WOLF S 780.52 Insomnia, Unspecified 02/06/2010 [facility], WOLF S 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 02/06/2010 KADY MATTHEWS MD 780. 52 Insomnia, Unspecified 02/06/2010 [facility], WOLF S 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 02/06/2010 [facility], WOLF S 780.52 Insomnia, Unspecified 02/06/2010 [facility], WOLF S 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 02/06/2010 [facility], WOLF S 780.52 Insomnia, Unspecified 02/06/2010 TAN [...] DDS, KAELA F 78 8.1 Dysuria 04/18/2010 LJ DDS, KAELA F V72.31 [...] JUAREZ Pierre 788.1 Dysuria 04/18/2010 NORMA MARTINES, JURAEZ Pierre V72.31 Routine Gynecological Examination 04/18/2010 NORMA MARTINES, JUAREZ Pierre 616.10 Vaginitis And Vulvovaginitis, Unspecified 04/18/2010 NORMA WILCOXS, JUAREZ Pierre 788.1 Dysuria 04/18/2010 JUAREZ GREEN DDS V72.31 Routine Gynecological Examination 04/18/2010 NICOLE DO, MORAIMA K 616.10 Vaginitis And Vulvovaginitis, Unspecified 04/18/2010 NICOLE DO, MORAIMA K 788.1 Dysuria 04/18/2010 NICOLE DO, MORAIMA K V72.31 Routine Gynecological Examination 04/18/2010 [facility], WOLF S 616.10 Vaginitis And Vulvovaginitis, Unspecified 04/18/2010 [facility], WOLF S 788.1 Dysuria 04/18/2010 [facility], WOLF S V72.31 Routine Gynecological Examination 04/18/2010 [facility], WOLF S 616.10 Vaginitis And Vulvovaginitis, Unspecified 04/18/2010 [facility], WOLF S 788.1 Dysuria 04/18/2010 [facility], WOLF S V72.31 Routine Gynecological Examination 04/18/2010 [facility], WOLF S 616.10 Vaginitis And Vulvovaginitis, Unspecified 04/18/2010 [facility], WOLF S 788.1 Dysuria 04/18/2010 [facility], WOLF S V72.31 Routine Gynecological Examination 04/18/2010 [facility], WOLF S 616.10 Vaginitis And Vulvovaginitis, Unspecified 04/18/2010 [facility], WOLF S 788.1 Dysuria 04/18/2010 [facility], WOLF S V72.31 Routine Gynecological Examination 04/18/2010 [facility], WOLF S 616.10 Vaginitis And Vulvovaginitis, Unspecified 04/18/2010 [facility], WOLF S 788.1 Dysuria 04/18/2010 [facility], WOLF S V72.31 Routine Gynecological Examination 04/18/2010 MELISSA DONIS DDS 616.10 Vaginitis And Vulvovaginitis, Unspecified 04/18/2010 MELISSA DONIS DDS 78 8.1 Dysuria 04/18/2010 MELISSA DONIS DDS V72.31 Routine Gynecological Examination 04/18/2010 TAN DDS, MARIA LUISA 616.10 Vaginitis And Vulvovaginitis, Unspecified 04/18/2010 ATN DDS, MARIA LUISA 78 8.1 Dysuria 04/18/2010 TAN DDS, MARIA LUISA V72.31 Routine Gynecological Examination 04/18/2010 HUSAM ORLANDO APRN 616.10 Vaginitis And Vulvovaginitis, Unspecified 04/18/2010 HUSAM [place]LAND[place] APRN 78 8.1 Dysuria 04/18/2010 HUSAM [place]LANDO APRN V72.31 Routine Gynecological Examination 04/18/2010 [facility], WOLF S 616.10 Vaginitis And Vulvovaginitis, Unspecified 04/18/2010 [facility], OWLF S 788.1 Dysuria 04/18/2010 [facility], WOLF S V72.31 Routine Gynecological Examination 04/18/2010 TIMOTHY KAN, WOLF S 616.10 Vaginitis And Vulvovaginitis, Unspecified 04/18/2010 [facility], WOLF S 788.1 Dysuria 04/18/2010 TIMOTHY KAN, WOLF S V72.31 Routine Gynecological Examination 04/18/2010 CASSIE DOMINGUEZ, KADY Raymundo 616. 10 Vaginitis And Vulvovaginitis, Unspecified 04/18/2010 CASSIE DOMINGUEZ, KADY Raymundo 788. 1 Dysuria 04/18/2010 CASSIE DOMINGUEZ, KADY Raymundo V72. 31 Routine Gynecological Examination 04/18/2010 [facility], WOLF S 616.10 Vaginitis And Vulvovaginitis, Unspecified 04/18/2010 [facility], WOLF S 788.1 Dysuria 04/18/2010 [facility], WOLF S V72.31 Routine Gynecological Examination 04/18/2010 [facility], WOLF S 616.10 Vaginitis And Vulvovaginitis, Unspecified 04/18/2010 [facility], WOLF S 788.1 Dysuria 04/18/2010 [facility], WOLF S V72.31 Routine Gynecological Examination 04/18/2010 [...] Disorders Of Function Of Stomach 08/22/2010 [facility], WOLF S 461.9 Sinusitis Acute 08/22/2010 [facility], WOLF S 536.8 Dyspepsia And Other Specified Disorders Of Function Of Stomach 08/22/2010 [facility], WOLF S 461.9 Sinusitis Acute 08/22/2010 [facility], WOLF S 536.8 Dyspepsia And Other Specified Disorders Of Function Of Stomach 08/22/2010 [facility], WOLF S 461.9 Sinusitis Acute 08/22/2010 [facility], WOLF S 536.8 Dyspepsia And Other Specified Disorders Of Function Of Stomach 08/22/2010 [facility], WOLF S 461.9 Sinusitis Acute 08/22/2010 [facility], WOLF S 536.8 Dyspepsia And Other Specified Disorders Of Function Of Stomach 08/22/2010 [facility], WOLF S 461.9 Sinusitis Acute 08/22/2010 [facility], WOLF S 536.8 Dyspepsia And Other Specified [...] WOLF S 461.9 Sinusitis Acute 08/22/2010 [facility], WOLF S 536.8 Dyspepsia And Other Specified Disorders Of Function Of Stomach 08/22/2010 KADY MATTHEWS MD 461. 9 Sinusitis Acute 08/22/2010 KADY MATTHEWS MD 536. 8 Dyspepsia And Other Specified Disorders Of Function Of Stomach 08/22/2010 [facility], WOLF S 461.9 Sinusitis Acute 08/22/2010 TIMOTHYSTARLA [...] T 46 6.0 Acute Bronchitis 10/24/2010 [facility], WOLF S 466.0 Acute Bronchitis 10/24/2010 466.0 Acut e Bronchitis 10/24/2010 NICOLE DO, MORAIMA K 466.0 Acute Bronchitis 10/24/2010 466.0 Acut e Bronchitis 10/24/2010 466.0 Acut e Bronchitis 10/24/2010 466.0 Acut e Bronchitis 10/24/2010 466.0 Acut e Bronchitis 10/24/2010 NORMA DDS, JUAREZ M 466.0 Acute Bronchitis 10/24/2010 NORMA DDS, JUAREZ M 466.0 Acute Bronchitis 10/24/2010 NICOLE DO, MORAIMA K 466.0 Acute Bronchitis 10/24/2010 [facility], WOLF S 466.0 Acute Bronchitis 10/24/2010 [facility], WOLF S 466.0 Acute Bronchitis 10/24/2010 [facility], WOLF S 466.0 Acute Bronchitis 10/24/2010 [facility], WOLF S 466.0 Acute Bronchitis 10/24/2010 [facility], WOLF S 466.0 Acute Bronchitis 10/24/2010 GAGANDEEP WILCOXS, MELISSA J 46 6.0 Acute Bronchitis 10/24/2010 BRITNEY WILCOXS, MARIA LUISA 46 6.0 Acute Bronchitis 10/24/2010 HUSAM ORLANOD APRN 46 6.0 Acute Bronchitis 10/24/2010 [facility], WOLF S 466.0 Acute Bronchitis 10/24/2010 [facility], WOLF S 466.0 Acute Bronchitis 10/24/2010 KADY MATTHEWS MD 466. 0 Acute Bronchitis 10/24/2010 [facility], WOLF S 466.0 Acute Bronchitis 10/24/2010 [facility], WOLF S 466.0 Acute Bronchitis 10/24/2010 BRITNEY [...] Or More Phalanges Of Foot 12/05/2010 [facility], WOLF S 826.0 Closed Fracture Of One [...] Or More Phalanges Of Foot 12/05/2010 [facility], WOLF S 826.0 Closed Fracture Of One Or More Phalanges Of Foot 12/05/2010 [facility], WOLF S 826.0 Closed Fracture Of One Or More Phalanges Of Foot 12/05/2010 [facility], WOLF S 826.0 Closed Fracture Of One Or More Phalanges Of Foot 12/05/2010 [facility], WOLF S 826.0 Closed Fracture Of One Or More Phalanges Of Foot 12/05/2010 [facility], WOLF S 826.0 Closed Fracture Of One Or More Phalanges Of Foot 12/05/2010 GAGANDEEP WILCOXS, MELISSA Raymundo 82 6.0 Closed Fracture Of One Or More Phalanges Of Foot 12/05/2010 BRITNEY WILCOXSMARIA LUISA 82 6.0 Closed Fracture Of One Or More Phalanges Of Foot 12/05/2010 HUSAM ORLANDO APRN 82 6.0 Closed Fracture Of One Or More Phalanges Of Foot 12/05/2010 [facility], WOLF S 826.0 Closed Fracture Of One Or More Phalanges Of Foot 12/05/2010 [facility], WOLF S 826.0 Closed Fracture Of One Or More Phalanges Of Foot 12/05/2010 CASSIE DOMINGUEZ, KADY Raymundo 826. 0 Closed Fracture Of One Or More Phalanges Of Foot 12/05/2010 [facility], WOLF S 826.0 Closed Fracture Of One Or More Phalanges Of Foot 12/05/2010 [facility], WOLF S 826.0 Closed Fracture Of One [...] DO 465.9 Upper Respiratory Infection 11/03/2011 [employer], WOLF S 465.9 Upper Respiratory Infection 11/03/2011 [employer], WOLF S 465.9 Upper Respiratory Infection 11/03/2011 [employer], WOLF S 465.9 Upper Respiratory Infection 11/03/2011 [employer], WOLF S 465.9 Upper Respiratory Infection 11/03/2011 [employer], WOLF S 465.9 Upper Respiratory Infection 11/03/2011 GAGANDEEP WILCOXS, MELISSA Raymundo 46 5.9 Upper Respiratory Infection 11/03/2011 MARIA LUISA TAN DDS 46 5.9 Upper Respiratory Infection 11/03/2011 HUSAM ORLANDO APRN 46 5.9 Upper Respiratory Infection 11/03/2011 [employer], WOLF S 465.9 Upper Respiratory Infection 11/03/2011 [employer], WOLF S 465.9 Upper Respiratory Infection 11/03/2011 CASSIE DOMINGUEZ, KADY Raymundo 465. 9 Upper Respiratory Infection 11/03/2011 [employer], WOLF S 465.9 Upper Respiratory Infection 11/03/2011 [employer], WOLF S 465.9 Upper Respiratory Infection 11/03/2011 [...] V04.81 FLU DX (MEDICARE ONLY) 11/28/2011 [employer], WOLF S V04.81 FLU DX (MEDICARE ONLY) 11/28/2011 [employer], WOLF S V04.81 FLU DX (MEDICARE ONLY) 11/28/2011 [employer], WOLF S V04.81 FLU DX (MEDICARE ONLY) 11/28/2011 [employer], WOLF S V04.81 FLU DX (MEDICARE ONLY) 11/28/2011 [employer], WOLF S V04.81 FLU DX (MEDICARE ONLY) 11/28/2011 MELISSA DONIS DDS V04.81 FLU DX (MEDICARE ONLY) 11/28/2011 MARIA LUISA TAN DDS V04.81 FLU DX (MEDICARE ONLY) 11/28/2011 HUSAM ORLANDO APRN V04.81 FLU DX (MEDICARE ONLY) 11/28/2011 [employer], WOLF S V04.81 FLU DX (MEDICARE ONLY) 11/28/2011 [employer], WOLF S V04.81 FLU DX (MEDICARE ONLY) 11/28/2011 KADY MATTHEWS MD V04. 81 FLU DX (MEDICARE ONLY) 11/28/2011 [employer], WOLF S V04.81 FLU DX (MEDICARE ONLY) 11/28/2011 [employer], WOLF S V04.81 FLU DX (MEDICARE ONLY) [...] S 427.9 CARDIAC DYSRHYTHMIA UNSPECIFIED 02/21/2012 [employer], WOLF S 788.1 DYSURIA 02/21/2012 [employer], WOLF S 427.9 CARDIAC DYSRHYTHMIA UNSPECIFIED 02/21/2012 [employer], WOLF S 788.1 DYSURIA 02/21/2012 WHITE DDS, [...] S 427.9 CARDIAC DYSRHYTHMIA UNSPECIFIED 02/21/2012 [employer], WOLF S 788.1 DYSURIA 02/21/2012 CASSIE DOMINGUEZ, KADY Raymundo 427. 9 CARDIAC DYSRHYTHMIA UNSPECIFIED 02/21/2012 KADY MATTHEWS MD 788. 1 DYSURIA 02/21/2012 [employer], WOLF S 427.9 CARDIAC DYSRHYTHMIA UNSPECIFIED 02/21/2012 TIMOTHY GAINESN, WOLF S 788.1 DYSURIA 02/21/2012 [employer], WOLF S 427.9 CARDIAC DYSRHYTHMIA UNSPECIFIED 02/21/2012 [...] 789.03 ABDOMINAL PAIN RIGHT LOWER QUADRANT 11/11/2012 TIMOHTY KAN, WOLF S 789.03 ABDOMINAL PAIN RIGHT [...] APRNA S 564.00 UNSPECIFIED CONSTIPATION 11/20/2012 [employer], WOLF S 784.42 DYSPHONIA 11/20/2012 [employer], WOLF S 564.00 UNSPECIFIED CONSTIPATION 11/20/2012 [employer], WOLF S 784.42 DYSPHONIA 11/20/2012 [employer], WOLF S 564.00 UNSPECIFIED CONSTIPATION 11/20/2012 [employer], WOLF S 784.42 DYSPHONIA 11/20/2012 TIMOTHY G[employer] WEIGHTER, WOLF S 564.00 UNSPECIFIED CONSTIPATION 11/20/2012 TIMOTHY [employer]IGHTER, WOLF S 784.42 DYSPHONIA 11/20/2012 TIMOTHY [employer] 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, 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 S 564.00 UNSPECIFIED CONSTIPATION 11/20/2012 TIMOTHY [employer] WEIGHTER, WOLF S 784.42 DYSPHONIA 11/20/2012 GAGANDEEP DDS, MELISSA J 564.00 UNSPECIFIED CONSTIPATION 11/20/2012 WHITE DDS, MELISSA J 784.42 DYSPHONIA 11/20/2012 TAN DDS, MARIA LUISA 564.00 UNSPECIFIED CONSTIPATION 11/20/2012 TAN DDS, MARIA LUISA 784.42 DYSPHONIA 11/20/2012 HUSAM ORLANDO APRN T 564.00 UNSPECIFIED CONSTIPATION 11/20/2012 JOHANNY KAN, HUSAM T 784.42 DYSPHONIA 11/20/2012 TIMOTHY [employer] WEIGHTER, WOLF S 564.00 UNSPECIFIED CONSTIPATION 11/20/2012 TIMOTHY GAINESN, WOLF S 784.42 DYSPHONIA 11/20/2012 TIMOTHY GAINESN, WOLF S 564.00 UNSPECIFIED CONSTIPATION 11/20/2012 TIMOTHY [employer]IGHTER, WOLF S 784.42 DYSPHONIA 11/20/2012 CASSIE DOMINGUEZ, KADY Raymundo 564. 00 UNSPECIFIED CONSTIPATION 11/20/2012 CASSIE DOMINGUEZ, KADY Raymundo 784. 42 DYSPHONIA 11/20/2012 TIMOTHY [employer]IGHTER, WOLF S 564.00 UNSPECIFIED CONSTIPATION 11/20/2012 TIMOTHY [employer] WEIGHTER, WOLF S 784.42 DYSPHONIA 11/20/2012 TIMOTHY GAINESN, [...] S 465.9 UPPER RESPIRATORY INFECTION 01/03/2013 TIMOTHY [employer] WEIGHTER, WOLF S 465.9 UPPER RESPIRATORY INFECTION 01/03/2013 TIMOTHY GAINESN, WOLF S 465.9 UPPER RESPIRATORY INFECTION 01/03/2013 TIMOTHY [employer] WEIGHTER, WOLF S 465.9 UPPER RESPIRATORY INFECTION 01/03/2013 [...] 465. 9 UPPER RESPIRATORY INFECTION 01/03/2013 TIMOTHY [employer] WEIGHTER, WOLF S 465.9 UPPER RESPIRATORY INFECTION 01/03/2013 TIMOTHY [employer] WEIGHTER, WOLF S 465.9 UPPER RESPIRATORY INFECTION 01/03/2013 [...] Wound Of Head Without Complication 02/03/2013 TIMOTHY [employer] WEIGHTER, WOLF S 873.8 Other And Unspecified Open Wound Of Head Without Compl ication 02/03/2013 TIMOTHY [employer] WEIGHTER, WOLF S 873.8 Other And Unspecified Open Wound Of Head Without Compl ication 02/03/2013 TIMOTHY [employer] WEIGHTER, WOLF S 873.8 Other And Unspecified Open Wound Of Head Without Compl ication 02/03/2013 TIMOTHY [employer] WEIGHTER, WOLF S 873.8 Other And Unspecified Open Wound Of Head Without Compl ication 02/03/2013 TIMOTHY [employer] WEIGHTER, WOLF S 873.8 Other And Unspecified Open Wound Of Head Without Compl ication 02/03/2013 GAGANDEEP WILCOXS, MELISSA Raymundo 87 3.8 Other And Unspecified Open Wound Of Head Without Complication 02/03/2013 BRITNEY WILCOXSMARIA LUISA 87 3.8 Other And Unspecified Open Wound Of Head Without Complication 02/03/2013 HUSAM ORLANDO APRN 87 3.8 Other And Unspecified Open Wound Of Head Without Complication 02/03/2013 TIMOTHY [employer] WEIGHTER, WOLF S 873.8 Other And Unspecified Open Wound Of Head Without Compl ication 02/03/2013 TIMOTHY [employer] WEIGHTER, WOLF S 873.8 Other And Unspecified Open Wound Of Head Without Compl ication 02/03/2013 CASSIE DOMINGUEZ, KADY Raymundo 873. 8 Other And Unspecified Open Wound Of Head Without Complication 02/03/2013 TIMOTHY [employer] WEIGHTER, WOLF S 873.8 Other And Unspecified Open Wound Of Head Without Compl ication 02/03/2013 TIMOTHY [employer] WEIGHTER, WOLF S 873.8 Other And Unspecified Open [...] DO K V58.32 SUTURE REMOVAL 02/10/2013 TIMOTHY [employer] WEIGHTER, WOLF S V58.32 SUTURE REMOVAL 02/10/2013 TIMOTHY [employer] WEIGHTER, WOLF S V58.32 SUTURE REMOVAL 02/10/2013 TIMOTHY [employer] WEIGHTER, WOLF S V58.32 SUTURE REMOVAL 02/10/2013 TIMOTHY [employer] WEIGHTER, WOLF S V58.32 SUTURE REMOVAL 02/10/2013 TIMOTHY [employer] WEIGHTER, WOLF S V58.32 SUTURE REMOVAL 02/10/2013 GAGANDEEP MARTINES, MELISSA Raymundo V58.32 SUTURE REMOVAL 02/10/2013 MARIA LUISA TAN DDS V58.32 SUTURE REMOVAL 02/10/2013 HUSAM ORLANDO APRN V58.32 SUTURE REMOVAL 02/10/2013 TIMOTHY [employer] WEIGHTER, WOLF S V58.32 SUTURE REMOVAL 02/10/2013 TIMOTHY [employer] WEIGHTER, WOLF S V58.32 SUTURE REMOVAL 02/10/2013 CASSIE DOMINGUEZ, KADY Raymundo V58. 32 SUTURE REMOVAL 02/10/2013 TIMOTHY [employer] WEIGHTER, WOLF S V58.32 SUTURE REMOVAL 02/10/2013 TIMOTHY [employer] WEIGHTER, WOLF S V58.32 SUTURE REMOVAL 02/10/2013 BRITNEY [...] K V76.10 BREAST CANCER SCREENING 04/03/2013 TIMOTHY [employer] WEIGHTER, WOLF S V65.49 OTHER SPECIFIED COUNSELING 04/03/2013 TIMOTHY [employer] WEIGHTER, WOLF S V76.10 BREAST CANCER SCREENING 04/03/2013 TIMOTHY [employer] WEIGHTER, WOLF S V65.49 OTHER SPECIFIED COUNSELING 04/03/2013 TIMOTHY [employer] WEIGHTER, WOLF S V76.10 BREAST CANCER SCREENING 04/03/2013 TIMOTHY [employer] WEIGHTER, WOLF S V65.49 OTHER SPECIFIED COUNSELING 04/03/2013 TIMOTHY [employer] WEIGHTER, WOLF S V76.10 BREAST CANCER SCREENING 04/03/2013 TIMOTHY [employer] WEIGHTER, WOLF S V65.49 OTHER SPECIFIED COUNSELING 04/03/2013 TIMOTHY [employer] WEIGHTER, WOLF S V76.10 BREAST CANCER SCREENING 04/03/2013 TIMOTHY [employer] WEIGHTER, WOLF S V65.49 OTHER SPECIFIED COUNSELING 04/03/2013 TIMOTHY [employer] WEIGHTER, WOLF S V76.10 BREAST CANCER SCREENING 04/03/2013 GAGANDEEP DDS, MELISSA Raymundo V65.49 OTHER SPECIFIED COUNSELING 04/03/2013 WHITE DDS, MELISSA Raymundo V76.10 BREAST CANCER SCREENING 04/03/2013 TAN DDS, MARIA LUISA V65.49 OTHER SPECIFIED COUNSELING 04/03/2013 TAN DDS, MARIA LUISA V76.10 BREAST CANCER SCREENING 04/03/2013 HUSAM ORLANDO APRN V65.49 OTHER SPECIFIED COUNSELING 04/03/2013 JOHANNY G[employer] WEIGHTER, HUSAM T V76.10 BREAST CANCER SCREENING 04/03/2013 TIMOTHY [employer] WEIGHTER, WOLF S V65.49 OTHER SPECIFIED COUNSELING 04/03/2013 TIMOTHY [employer] WEIGHTER, WOLF S V76.10 BREAST CANCER SCREENING 04/03/2013 TIMOTHY [employer] WEIGHTER, WOLF S V65.49 OTHER SPECIFIED COUNSELING 04/03/2013 TIMOTHY [employer] WEIGHTER, WOLF S V76.10 BREAST CANCER SCREENING 04/03/2013 CASSIE DOMINGUEZ, KADY Raymundo V65. 49 OTHER SPECIFIED COUNSELING 04/03/2013 CASSIE DOMINGUEZ, KADY Raymundo V76. 10 BREAST CANCER SCREENING 04/03/2013 TIMOTHY [employer] WEIGHTER, WOLF S V65.49 OTHER SPECIFIED COUNSELING 04/03/2013 TIMOTHY [employer] WEIGHTER, WOLF S V76.10 BREAST CANCER SCREENING 04/03/2013 TIMOTHY [employer] WEIGHTER, WOLF S V65.49 OTHER SPECIFIED COUNSELING 04/03/2013 TIMOTHY [employer] WEIGHTER, WOLF S V76.10 BREAST CANCER SCREENING 04/03/2013 [...] MD Ot 414. 01 CORONARY ATHEROSCLEROSIS OF [place] CORON 11/07/2014 KADY MATTHEWS MD Ot 427. [...] 427.9 CARDIAC DYSRHYTHMIA NOS 09/27/2015 WOLF AGUIRRE TWINE REELING MACHINE OPERATOR Ot Z12.31 10/26/2015 KAREEN DEEPTIPB Ann APRN Ot V76.12 10/26/2015 CARITO DOMINGUEZ, BOB M Ot V72.84 10/26/2015 WOLF AGUIRRE [...] Ot I25. 10 ATHSCL HEART DISEASE OF [place] CORONARY 05/02/2016 KADY MATTHEWS MD Ot I49. [...] MAMMO-MALIGN NEOPLASM OF [place] 05/02/2016 TIMOTHY, WOLF TWINE REELING MACHINE OPERATOR Ot Z12.31 ENCNTR SCREEN MAMMOGRAM FOR MALIGNANT NE 05/04/2016 DEEPTI MATHUR A [employer] WEIGHTER Ot V76.12 OTH SCREEN MAMMO-MALIGN NEOPLASM OF [place] 05/04/2016 CARITO DOMINGUEZ, BOB M Ot V72.84 EXAM PRE-OPERATIVE NOS 05/04/2016 WOLF AGUIRRE TWINE REELING MACHINE OPERATOR Ot V76.12 OTH SCREEN MAMMO-MALIGN NEOPLASM OF [place] 05/04/2016 WOLF AGUIRRE TWINE REELING MACHINE OPERATOR Ot Z12.31 ENCNTR SCREEN MAMMOGRAM FOR MALIGNANT NE 05/04/2016 DEEPTI MATHUR A [employer] WEIGHTER Ot V76.12 OTH SCREEN MAMMO-MALIGN NEOPLASM OF [place] 05/04/2016 CARITO DOMINGUEZ, BOB M Ot V72.84 EXAM PRE-OPERATIVE NOS 05/04/2016 WOLF AGUIRRE TWINE REELING MACHINE OPERATOR Ot V76.12 OTH SCREEN MAMMO-MALIGN NEOPLASM OF [place] 05/04/2016 HAFSA AGUIRRENDA TWINE REELING MACHINE OPERATOR Ot Z12.31 ENCNTR SCREEN MAMMOGRAM FOR MALIGNANT NE 05/06/2016 FRANCE NAVARRO MD Ot D64.9 ANEMIA, UNSPECIFIED 05/06/2016 FRANCE NAVARRO MD Ot F32.9 MAJOR DEPRESSIVE DISORDER, SINGLE EPISOD 05/06/2016 FRANCE NAVARRO MD Ot 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 05/06/2016 FRANCE NAVARRO MD Ot I10 ESSENTIAL (PRIMARY) HYPERTENSION 05/06/2016 FRANCE NAVARRO MD Ot I25.1 0 ATHSCL HEART DISEASE OF [place] CORONARY 05/06/2016 FRANCE NAVARRO MD Ot I49.3 [...] Ot I25.1 0 ATHSCL HEART DISEASE OF [place] CORONARY 05/12/2016 FRANCE NAVARRO MD Ot I49.3 VENTRICULAR PREMATURE DEPOLARIZATION 05/12/2016 FRANCE NAVARRO MD Ot K21.9 GASTRO-ESOPHAGEAL REFLUX DISEASE WITHOUT 05/12/2016 FRANCE NAVARRO MD Ot K59.0 0 CONSTIPATION, UNSPECIFIED 05/12/2016 FRANCE NAVARRO MD Ot [...] PAIN 08/10/2016 MEI HILL MD Ot Z79.82 [facility] (CURRENT) USE OF ASPIRIN 08/10/2016 MEI HILL MD Ot Z79.899 OTHER WARD HELPER (CURRENT) DRUG THERAPY 08/27/2016 ANNEMARIE MATHURPB Ann APRN Ot V76.12 OTH SCREEN MAMMO-MALIGN NEOPLASM OF [place] 08/27/2016 CARITO DOMINGUEZ, BOB Pierre Ot V72.84 EXAM PRE-OPERATIVE NOS 08/27/2016 WOLF AGUIRRE TWINE REELING MACHINE OPERATOR Ot V76.12 OTH SCREEN MAMMO-MALIGN NEOPLASM OF [place] 08/27/2016 WOLF AGUIRRE TWINE REELING MACHINE OPERATOR Ot Z12.31 ENCNTR SCREEN MAMMOGRAM FOR MALIGNANT NE 03/08/2017 VAN GILLETTE APRN Ot F41 .9 ANXIETY DISORDER, UNSPECIFIED 03/08/2017 VAN GILLETTE APRN Ot I10 ESSENTIAL (PRIMARY) HYPERTENSION 03/08/2017 VAN GILLETTE APRN Ot I25.10 ATHSCL HEART DISEASE OF [place] CORONARY 03/08/2017 VAN GILLETTE APRN Ot M25.551 PAIN IN RIGHT HIP 03/08/2017 VAN GILLETTE APRN Ot M25.552 PAIN IN LEFT HIP 03/08/2017 VAN GILLETTE APRN Ot Z79.01 WARD HELPER (CURRENT) USE OF ANTICOAGULANT 03/08/2017 VAN GILLETTE APRN Ot Z79.82 [facility] (CURRENT) USE OF ASPIRIN 03/08/2017 VAN GILLETTE APRN Ot Z79.899 OTHER WARD HELPER (CURRENT) DRUG THERAPY 03/08/2017 VAN GILLETTE APRN [...] APRN Ot I25.10 ATHSCL HEART DISEASE OF [place] CORONARY 03/11/2017 VAN GILLETTE APRN Ot M25.551 PAIN IN RIGHT HIP 03/11/2017 VAN GILLETTE APRN Ot M25.552 PAIN IN LEFT HIP 03/11/2017 VNA GILLETTE [employer] WEIGHTER Ot Z79.01 [facility] (CURRENT) USE OF ANTICOAGULANT 03/11/2017 VAN GILLETTE [employer] WEIGHTER Ot Z79.82 WARD HELPER (CURRENT) USE OF ASPIRIN 03/11/2017 VAN GILLTETE [employer] WEIGHTER Ot Z79.899 OTHER [facility] (CURRENT) DRUG THERAPY 03/11/2017 VAN GILLETTE [employer] WEIGHTER Ot Z91.14 PATIENT'S OTHER NONCOMPLIANCE WITH MEDIC 03/11/2017 VAN GILLETTE APRN Ot Z95 .1 PRESENCE OF AORTOCORONARY BYPASS GRAFT 03/11/2017 VAN GILLETTE APRN Ot Z96.641 PRESENCE OF RIGHT ARTIFICIAL HIP JOINT 03/11/2017 VAN GILLETTE APRN Ot F41 .9 ANXIETY DISORDER, UNSPECIFIED 03/11/2017 VAN GILLETTE APRN Ot I10 ESSENTIAL (PRIMARY) HYPERTENSION 03/11/2017 VAN GILLETTE APRN Ot I25.10 ATHSCL HEART DISEASE OF [place] CORONARY 03/11/2017 VAN GILLETTE APRN Ot M25.551 PAIN IN RIGHT HIP 03/11/2017 VAN GILLETTE APRN Ot M25.552 PAIN IN LEFT HIP 03/11/2017 VAN GILLETTE APRN Ot Z79.01 [facility] (CURRENT) USE OF ANTICOAGULANT 03/11/2017 VAN GILLETTE APRN Ot Z79.82 [facility] (CURRENT) USE OF ASPIRIN 03/11/2017 VAN GILLETTE APRN Ot Z79.899 OTHER [facility] (CURRENT) DRUG THERAPY 03/11/2017 VAN GILLETTE APRN [...] MD Ot I25.10 ATHSCL HEART DISEASE OF [place] CORONARY 07/30/2017 MEI HILL MD, Ot K21.9 GASTRO-ESOPHAGEAL REFLUX DISEASE WITHOUT 07/30/2017 MEI HILL MD Ot K59.00 CONSTIPATION, UNSPECIFIED 07/30/2017 MEI HILL MD, Ot M19.90 UNSPECIFIED OSTEOARTHRITIS, UNSPECIFIED 07/30/2017 MEI HILL MD Ot R10.84 GENERALIZED ABDOMINAL PAIN 07/30/2017 MEI HILL MD, Ot Z79.01 [facility] (CURRENT) USE OF ANTICOAGULANT 07/30/2017 MEI HILL MD, Ot Z79.82 [facility] (CURRENT) USE OF ASPIRIN 07/30/2017 EMI HILL MD, Ot Z82.49 FAMILY HX OF [...] MD Ot I25.10 ATHSCL HEART DISEASE OF [place] CORONARY 08/01/2017 MEI HILL MD Ot K21.9 GASTRO-ESOPHAGEAL REFLUX DISEASE WITHOUT 08/01/2017 MEI HILL MD Ot K59.00 CONSTIPATION, UNSPECIFIED 08/01/2017 MEI HILL MD Ot M19.90 UNSPECIFIED OSTEOARTHRITIS, UNSPECIFIED 08/01/2017 MEI HILL MD Ot R10.84 GENERALIZED ABDOMINAL PAIN 08/01/2017 MEI HILL MD, Ot Z79.01 [facility] (CURRENT) USE OF ANTICOAGULANT 08/01/2017 MEI HILL MD, Ot Z79.82 [facility] (CURRENT) USE OF ASPIRIN 08/01/2017 MEI HILL [...] MAMMO-MALIGN NEOPLASM OF [place] 09/13/2017 WOLF AGUIRRE TWINE REELING MACHINE OPERATOR Ot Z12.31 ENCNTR SCREEN MAMMOGRAM FOR MALIGNANT [...] MD Ot I25.10 ATHSCL HEART DISEASE OF [place] CORONARY 09/18/2017 SHANDA SAINI MD Ot K21.0 [...] UNSPECIFIED 09/18/2017 SHANDA SAINI MD Ot Z79.82 [facility] (CURRENT) USE OF ASPIRIN 09/18/2017 SHANDA SAINI MD Ot Z79.89 9 OTHER [facility] (CURRENT) DRUG THERAPY 09/18/2017 SHANDA SAINI MD Ot Z95.1 PRESENCE OF AORTOCORONARY BYPASS GRAFT 09/18/2017 SHANDA SAINI MD Ot 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, BILATE 09/19/2017 SHANDA SAINI MD Ot F03.90 UNSPECIFIED DEMENTIA WITHOUT BEHAVIORAL 09/19/2017 SHANDA SAINI MD Ot I25.10 ATHSCL HEART DISEASE OF [place] CORONARY 09/19/2017 SHANDA SAINI MD Ot K21.0 [...] HEMORRHOIDS 09/19/2017 SHANDA SAINI MD Ot Z79.82 WARD HELPER (CURRENT) USE OF ASPIRIN 09/19/2017 SHANDA SAINI MD Ot Z79.89 9 OTHER WARD HELPER (CURRENT) DRUG THERAPY 09/19/2017 SHANDA SAINI MD Ot Z95.1 PRESENCE OF AORTOCORONARY BYPASS GRAFT 09/19/2017 SHANDA SAINI MD, Ot 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, BILATE 09/25/2017 DEEPTI MATHUR [employer]IGHTER Ot V76.12 OTH SCREEN MAMMO-MALIGN NEOPLASM OF [place] 09/25/2017 BOB ARZATE MD Ot V72.84 EXAM PRE-OPERATIVE NOS 09/25/2017 WOLF AGUIRRE TWINE REELING MACHINE OPERATOR Ot V76.12 OTH SCREEN MAMMO-MALIGN NEOPLASM OF [place] 09/25/2017 WOLF AGUIRRE TWINE REELING MACHINE OPERATOR Ot Z12.31 ENCNTR SCREEN MAMMOGRAM FOR MALIGNANT NE 09/27/2017 SHANDA SAINI MD Ot F03.90 UNSPECIFIED DEMENTIA WITHOUT BEHAVIORAL 09/27/2017 SHANDA SAINI MD, Ot I25.10 ATHSCL HEART DISEASE OF [place] CORONARY 09/27/2017 SHANDA SAINI MD Ot K21.0 [...] UNSPECIFIED 09/27/2017 SHANDA SAINI MD Ot Z79.82 [facility] (CURRENT) USE OF ASPIRIN 09/27/2017 SHANDA SAINI MD Ot Z79.89 9 OTHER [facility] (CURRENT) DRUG THERAPY 09/27/2017 HSANDA SAINI MD Ot Z95.1 PRESENCE OF AORTOCORONARY BYPASS GRAFT 09/27/2017 SHANDA SAINI MD Ot 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, BILATE 08/20/2018 DEEPTI MATHUR [employer] WEIGHTER Ot V76.12 OTH SCREEN MAMMO-MALIGN NEOPLASM OF [place] 08/20/2018 CARITO DOMINGUEZ, BOB Gabby Ot V72.84 EXAM PRE-OPERATIVE NOS 08/20/2018 WOLF AGUIRRE EUGENIA Ot V76.12 OTH SCREEN MAMMO-MALIGN NEOPLASM OF [place] 08/20/2018 WOLF AGUIRRE EUGENIA Ot Z12.31 ENCNTR SCREEN MAMMOGRAM FOR MALIGNANT NE 08/20/2018 MELY MANUEL TWINE REELING MACHINE OPERATOR Ot E78.00 PURE HYPERCHOLESTEROLEMIA, UNSPECIFIED 08/20/2018 MELY, MANUEL TWINE REELING MACHINE OPERATOR Ot F32.9 MAJOR DEPRESSIVE DISORDER, SINGLE EPISOD 08/20/2018 MELY, MANUEL TWINE REELING MACHINE OPERATOR Ot F41.9 ANXIETY DISORDER, UNSPECIFIED 08/20/2018 MELY, MANUEL TWINE REELING MACHINE OPERATOR Ot I10 ESSENTIAL (PRIMARY) HYPERTENSION 08/20/2018 MELY, MANUEL TWINE REELING MACHINE OPERATOR Ot I25.10 ATHSCL HEART DISEASE OF [place] CORONARY 08/20/2018 MELY MANUEL TWINE REELING MACHINE OPERATOR Ot K21.9 GASTRO-ESOPHAGEAL REFLUX DISEASE WITHOUT 08/20/2018 MELY, MANUEL TWINE REELING MACHINE OPERATOR Ot K59.00 CONSTIPATION, UNSPECIFIED 08/20/2018 MELY, MANUEL TWINE REELING MACHINE OPERATOR Ot Z79.82 WARD HELPER (CURRENT) USE OF ASPIRIN 08/20/2018 MELY MANUEL TWINE REELING MACHINE OPERATOR Ot Z82.49 FAMILY HX OF [place]HE[place] HEART DIS AND OTH DI 08/20/2018 MELY MANUEL TWINE REELING MACHINE OPERATOR Ot Z87.440 PERSONAL HISTORY OF URINARY (TRACT) INFE 08/20/2018 MELY MANUEL TWINE REELING MACHINE OPERATOR Ot Z88.5 ALLERGY STATUS TO NARCOTIC AGENT STATUS 08/20/2018 MELY MANUEL TWINE REELING MACHINE OPERATOR Ot Z95.1 PRESENCE OF AORTOCORONARY BYPASS GRAFT 08/20/2018 MELY MANUEL TWINE REELING MACHINE OPERATOR Ot Z96.641 PRESENCE OF RIGHT ARTIFICIAL HIP JOINT 08/22/2018 MELY, MANUEL TWINE REELING MACHINE OPERATOR Ot E78.00 PURE HYPERCHOLESTEROLEMIA, UNSPECIFIED 08/22/2018 MELY, MANUEL TWINE REELING MACHINE OPERATOR Ot F32.9 MAJOR DEPRESSIVE DISORDER, SINGLE EPISOD 08/22/2018 MELY, MANUEL TWINE REELING MACHINE OPERATOR Ot F41.9 ANXIETY DISORDER, UNSPECIFIED 08/22/2018 MELY, MANUEL TWINE REELING MACHINE OPERATOR Ot I10 ESSENTIAL (PRIMARY) HYPERTENSION 08/22/2018 MELY, MANUEL TWINE REELING MACHINE OPERATOR Ot I25.10 ATHSCL HEART DISEASE OF [place] CORONARY 08/22/2018 MELY, MANUEL TWINE REELING MACHINE OPERATOR Ot K21.9 GASTRO-ESOPHAGEAL REFLUX DISEASE WITHOUT 08/22/2018 MELY, MANUEL TWINE REELING MACHINE OPERATOR Ot K59.00 CONSTIPATION, UNSPECIFIED 08/22/2018 MELY, MANUEL TWINE REELING MACHINE OPERATOR Ot Z79.82 [facility] (CURRENT) USE OF ASPIRIN 08/22/2018 MELY, MANUEL TWINE REELING MACHINE OPERATOR Ot Z82.49 FAMILY HX OF I[place]HE[place] HEART DIS AND OTH DI 08/22/2018 MELY, MANUEL TWINE REELING MACHINE OPERATOR Ot Z87.440 PERSONAL HISTORY OF URINARY (TRACT) INFE 08/22/2018 MELY, MANUEL TWINE REELING MACHINE OPERATOR Ot Z88.5 ALLERGY STATUS TO NARCOTIC AGENT STATUS 08/22/2018 MELY, MANUEL TWINE REELING MACHINE OPERATOR Ot Z95.1 PRESENCE OF AORTOCORONARY BYPASS GRAFT 08/22/2018 MELY, MANUEL TWINE REELING MACHINE OPERATOR Ot Z96.641 PRESENCE OF RIGHT ARTIFICIAL HIP JOINT 08/22/2018 MEYL, MANUEL TWINE REELING MACHINE OPERATOR Ot E78.00 PURE HYPERCHOLESTEROLEMIA, UNSPECIFIED 08/22/2018 MELY, MANUEL TWINE REELING MACHINE OPERATOR Ot F32.9 MAJOR DEPRESSIVE DISORDER, SINGLE EPISOD 08/22/2018 MELY, MANUEL TWINE REELING MACHINE OPERATOR Ot F41.9 ANXIETY DISORDER, UNSPECIFIED 08/22/2018 MELY, MANUEL TWINE REELING MACHINE OPERATOR Ot I10 ESSENTIAL (PRIMARY) HYPERTENSION 08/22/2018 MELY, MANUEL TWINE REELING MACHINE OPERATOR Ot I25.10 ATHSCL HEART DISEASE OF [place] CORONARY 08/22/2018 MELY, MANUEL TWINE REELING MACHINE OPERATOR Ot K21.9 GASTRO-ESOPHAGEAL REFLUX DISEASE WITHOUT 08/22/2018 MELY, MANUEL TWINE REELING MACHINE OPERATOR Ot K59.00 CONSTIPATION, UNSPECIFIED 08/22/2018 MELY, MANUEL TWINE REELING MACHINE OPERATOR Ot Z79.82 WARD HELPER (CURRENT) USE OF ASPIRIN 08/22/2018 MELY, MANUEL TWINE REELING MACHINE OPERATOR Ot Z82.49 FAMILY HX OF I[place]HE[place] HEART DIS AND OTH DI 08/22/2018 MELY, MANUEL TWINE REELING MACHINE OPERATOR Ot Z87.440 PERSONAL HISTORY OF URINARY (TRACT) INFE 08/22/2018 MELY, MANUEL TWINE REELING MACHINE OPERATOR Ot Z88.5 ALLERGY STATUS TO NARCOTIC AGENT STATUS 08/22/2018 MELY, MANUEL TWINE REELING MACHINE OPERATOR Ot Z95.1 PRESENCE OF AORTOCORONARY BYPASS GRAFT 08/22/2018 MELY, MANUEL TWINE REELING MACHINE OPERATOR Ot Z96.641 PRESENCE OF RIGHT ARTIFICIAL HIP JOINT 02/09/2019 CARITO DOMINGUEZ, BOB Pierre Ot V72.84 EXAM PRE-OPERATIVE NOS 02/09/2019 WOLF AGUIRREP Ot V76.12 OTH SCREEN MAMMO-MALIGN NEOPLASM OF [place] 02/09/2019 HAFSA AGUIRRENDA TWINE REELING MACHINE OPERATOR Ot Z12.31 ENCNTR SCREEN MAMMOGRAM FOR MALIGNANT NE 02/09/2019 CARITO DOMINGUEZ, BOB Pierre Ot V72.84 EXAM PRE-OPERATIVE NOS 02/09/2019 WOLF AGUIRRE TWINE REELING MACHINE OPERATOR Ot V76.12 OTH SCREEN MAMMO-MALIGN NEOPLASM OF [place] 02/09/2019 TIMOTHYHAFSA CHANDA TWINE REELING MACHINE OPERATOR Ot Z12.31 ENCNTR SCREEN MAMMOGRAM FOR MALIGNANT NE 02/09/2019 MEI HILL MD Ot E78.00 PURE HYPERCHOLESTEROLEMIA, UNSPECIFIED 02/09/2019 MEI HILL MD, Ot F32.9 MAJOR DEPRESSIVE DISORDER, SINGLE EPISOD 02/09/2019 MEI HILL MD, Ot F41.9 ANXIETY DISORDER, UNSPECIFIED 02/09/2019 MEI HILL MD Ot I10 ESSENTIAL (PRIMARY) HYPERTENSION 02/09/2019 MEI HILL MD, Ot I25.10 ATHSCL HEART DISEASE OF [place] CORONARY 02/09/2019 MEI HILL MD Ot K21.9 GASTRO-ESOPHAGEAL REFLUX DISEASE WITHOUT 02/09/2019 MEI HILL MD Ot R06.00 DYSPNEA, UNSPECIFIED 02/09/2019 MEI HILL MD Ot R06.02 SHORTNESS OF BREATH 02/09/2019 MEI HILL MD Ot Z79.82 WARD HELPER (CURRENT) USE OF ASPIRIN 02/09/2019 MEI HILL [...] MD Ot I25.10 ATHSCL HEART DISEASE OF [place] CORONARY 02/11/2019 MEI HILL MD Ot K21.9 GASTRO-ESOPHAGEAL REFLUX DISEASE WITHOUT 02/11/2019 MEI HILL MD Ot R06.00 DYSPNEA, UNSPECIFIED 02/11/2019 MEI HILL MD, Ot R06.02 SHORTNESS OF BREATH 02/11/2019 MEI HILL MD Ot Z79.82 WARD HELPER (CURRENT) USE OF ASPIRIN 02/11/2019 MEI HILL [...] DOI Ot I25.10 ATHSCL HEART DISEASE OF [place] CORONARY 02/13/2019 CRISTY LOCKETT AILEEN Ot I50.31 [...] MUNIZ DO Ot Y92.12 [address] 02/13/2019 JAGDISH MUNIZ DOI Ot Z66 DO NOT RESUSCITATE 02/13/2019 AILEEN MUNIZ DO Ot Z95.1 PRESENCE OF AORTOCORONARY BYPASS GRAFT 06/05/2019 DARREN DOMINGUEZ FACC, ALI FACP CCDS Ot I10 ESSENTIAL (PRIMARY) HYPERTENSION 06/05/2019 DARREN DOMINGUEZ FACC, ALI FACP CCDS Ot I25.10 ATHSCL HEART DISEASE OF [place] CORONARY 06/05/2019 DARREN DOMINGUEZ FACC, ALI FACP [...] Ot I25.1 0 ATHSCL HEART DISEASE OF [place] CORONARY 06/10/2019 MELANY STOKES MD, Ot I50.4 1 ACUTE COMBINED SYSTOLIC AND DIASTOLIC (C 06/10/2019 MELANY STOKES MD, Ot J90 PLEURAL EFFUSION, NOT ELSEWHERE CLASSIFI 06/10/2019 MELANY STOKES MD, Ot K21.9 GASTRO-ESOPHAGEAL REFLUX DISEASE WITHOUT 06/10/2019 MELANY STOKES MD, Ot K59.0 9 OTHER CONSTIPATION 06/10/2019 MLEANY STOKES MD, Ot M19.9 1 PRIMARY OSTEOARTHRITIS, [...] CCDS Ot I25.10 ATHSCL HEART DISEASE OF [place] CORONARY 06/25/2019 DARREN DOMINGUEZ FACC, ALI FACP [...] Ot I25. 10 ATHSCL HEART DISEASE OF [place] CORONARY 01/09/2020 CHANNING ABDI MD Ot I48. 91 UNSPECIFIED ATRIAL FIBRILLATION 01/09/2020 CHANNING ABDI MD Ot I50. 43 ACUTE ON CHRONIC COMBINED SYSTOLIC AND D 01/09/2020 CHANNIGN ABDI MD Ot R06. 02 SHORTNESS OF BREATH 01/09/2020 CHANNING ABDI MD Ot R09. 02 HYPOXEMIA 01/09/2020 CHANNING ABDI MD Ot R79. 89 OTHER SPECIFIED ABNORMAL FINDINGS OF BLO 01/09/2020 CHANNING ABDI MD Ot Z79. 82 [facility] (CURRENT) USE OF ASPIRIN 01/09/2020 CHANNING ABDI [...] Ot I25. 10 ATHSCL HEART DISEASE OF [place] CORONARY 01/13/2020 CHANNING ABDI MD Ot I48. 91 UNSPECIFIED ATRIAL FIBRILLATION 01/13/2020 CHANNING ABDI MD Ot I50. 43 ACUTE ON CHRONIC COMBINED SYSTOLIC AND D 01/13/2020 CHANNING ABDI MD Ot R06. 02 SHORTNESS OF BREATH 01/13/2020 CHANNING ABDI MD Ot R09. 02 HYPOXEMIA 01/13/2020 CHANNING ABDI MD Ot R79. 89 OTHER SPECIFIED ABNORMAL FINDINGS OF BLO 01/13/2020 CHANNING ABDI MD Ot Z79. 82 [facility] (CURRENT) USE OF ASPIRIN 01/13/2020 CHANNING ABDI [...] Ot I25. 10 ATHSCL HEART DISEASE OF [place] CORONARY 01/15/2020 CHANNING ABDI MD Ot I48. 91 UNSPECIFIED ATRIAL FIBRILLATION 01/15/2020 CHANNING ABDI MD Ot I50. 43 ACUTE ON CHRONIC COMBINED SYSTOLIC AND D 01/15/2020 CHANNING ABDI MD Ot R06. 02 SHORTNESS OF BREATH 01/15/2020 CHANNING ABDI MD Ot R09. 02 HYPOXEMIA 01/15/2020 CHANNING ABDI MD Ot R79. 89 OTHER SPECIFIED ABNORMAL FINDINGS OF BLO 01/15/2020 CHANNING BADI MD Ot Z79. 82 [facility] (CURRENT) USE OF ASPIRIN 01/15/2020 CHANNING ABDI [...] Ot I25. 10 ATHSCL HEART DISEASE OF [place] CORONARY 01/20/2020 CHANNING ABDI MD Ot I48. 91 UNSPECIFIED ATRIAL FIBRILLATION 01/20/2020 CHANNING ABDI MD Ot I50. 43 ACUTE ON CHRONIC COMBINED SYSTOLIC AND D 01/20/2020 CHANNING ABDI MD Ot R06. 02 SHORTNESS OF BREATH 01/20/2020 CHANNING ABDI MD Ot R09. 02 HYPOXEMIA 01/20/2020 CHANNING ABDI MD Ot R79. 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 01/28/2020 CRISTY LOCKETT AILEEN Ot Z79.82 [facility] (CURRENT) USE OF ASPIRIN 01/28/2020 CRISTY LOCKETT [...] AILEEN Ot I25.10 ATHSCL HEART DISEASE OF [place] CORONARY 01/28/2020 CRISTY LOCKETT AILEEN Ot I48.91 [...] RESUSCITATE 01/28/2020 MUNIZ DO AILEEN Ot 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 10 ATHSCL HEART DISEASE OF [place] CORONARY 03/26/2020 CHANNING ABDI MD Ot I48. 91 UNSPECIFIED ATRIAL FIBRILLATION 03/26/2020 CHANNING ABDI MD Ot I50. 43 ACUTE ON CHRONIC COMBINED SYSTOLIC AND D 03/26/2020 CHANNING ABDI MD Ot R06. 02 SHORTNESS OF BREATH 03/26/2020 CHANNING ABDI MD Ot R09. 02 HYPOXEMIA 03/26/2020 CHANNING ABDI MD, Ot R79. 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 49 FAMILY HX OF ISCHEM HEART DIS AND OTH DI 03/26/2020 CHANNING ABDI MD, Ot Z88. 1 ALLERGY STATUS TO OTHER ANTIBIOTIC AGENT 03/26/2020 CHANNING ABDI MD, Ot Z88. 5 ALLERGY STATUS TO NARCOTIC AGENT STATUS 03/26/2020 CHANNING ABDI MD, Ot Z95. 1 PRESENCE OF AORTOCORONARY BYPASS GRAFT 03/26/2020 CHANNING ABDI MD Ot Z96.643 PRESENCE OF ARTIFICIAL HIP JOINT, BILATE 04/18/2020 WOLF AGUIRRE Ot Z12.31 ENCNTR SCREEN MAMMOGRAM FOR MALIGNANT NE 04/18/2020 DARREN DOMINGUEZ FACC, ALI FACP CCDS Ot I10 ESSENTIAL (PRIMARY) HYPERTENSION 04/18/2020 DARREN HOPE, ALI FACP CCDS Ot I25.10 ATHSCL HEART DISEASE OF [place] CORONARY 04/18/2020 DARREN HOPE, ALI FACP CCDS Ot I49.8 OTHER SPECIFIED CARDIAC ARRHYTHMIAS 04/18/2020 DARREN HOPE, ALI FACP CCDS Ot R00.2 PALPITATIONS 04/18/2020 DARREN HOPE, ALI FACP CCDS Ot R53.1 WEAKNESS 04/18/2020 WOLF AGUIRRE Ot Z12.31 ENCNTR SCREEN MAMMOGRAM FOR MALIGNANT NE 04/18/2020 DARREN HOPE, ALI FACP CCDS Ot I10 ESSENTIAL (PRIMARY) HYPERTENSION 04/18/2020 DARREN DOMINGUEZ FACC, ALI FACP CCDS Ot I25.10 ATHSCL HEART DISEASE OF [place] CORONARY 04/18/2020 DARREN HOPE, ALI FACP CCDS Ot I49.8 OTHER SPECIFIED CARDIAC ARRHYTHMIAS 04/18/2020 DARREN DOMINGUEZ FACC, ALI FACP CCDS Ot R00.2 PALPITATIONS 04/18/2020 DARREN DOMINGUEZ FACC, ALI FACP CCDS Ot R53.1 WEAKNESS 04/18/2020 WOLF AGUIRREP Ot Z12.31 ENCNTR SCREEN MAMMOGRAM FOR MALIGNANT NE 04/18/2020 DARREN DOMINGUEZ FACC, MARK FACP CCDS Ot I10 ESSENTIAL (PRIMARY) HYPERTENSION 04/18/2020 [facility]Z [facility]ACC, [facility] Ot I25.10 ATHSCL HEART DISEASE OF [place] CORONARY 04/18/2020 DARREN [facility]UEZ FACC, [facility] Ot I49.8 OTHER SPECIFIED CARDIAC ARRHYTHMIAS 04/18/2020 DARREN DOMINGUEZ FACC, MARK FACP CCDS Ot R00.2 PALPITATIONS 04/18/2020 DARREN DOMINGUEZ FACC, MARK FACP CCDS Ot R53.1 WEAKNESS Procedures Code Description [place] [address] ROUT INE VENIPUNCTURE 11/20/2012 73274 UA L JUAN DIP 11/20/2012 36545 CMP 11/21/2012 [id number] GF R CALC (RESULT ONLY) 11/21/2012 33913 CBC 11/21/2012 99478 XRAY ABDOMEN, 1 VIEW (KUB) 11/30/2012 38924 ROUT INE VENIPUNCTURE 01/13/2013 10984 LIPI D PANEL 01/13/2013 83282 LACE RATION REPAIR (SPECIFY LOCATION) 02/03/2013 62174 MAMM OGRAM, SCREENING 04/03/2013 96062 UA W / CULTURE IF INDICATED 04/03/2013 G0008 FLU ADMINISTRATION (MEDICARE ONLY) 01/20/2014 02519 ROUT INE VENIPUNCTURE 02/05/2014 62966 CBC 02/05/2014 [id number] GF R CALC (RESULT ONLY) 02/05/2014 70146 CMP 02/05/2014 90962 LIPI D PANEL 02/05/2014 31597 TSH 02/05/2014 30701 KUB 02/23/2014 78401 MAMM OGRAM, SCREENING 04/08/2014 82085 OXIMETRY 10/18/2014 28222 ROUT INE VENIPUNCTURE 02/14/2015 53883 CBC 02/14/2015 [id number] GF R CALC (RESULT ONLY) 02/14/2015 61369 CMP 02/14/2015 90162 LIPI D PANEL 02/14/2015 [id number] RE POSITION LEFT UPPER FEMUR WITH INTRAME 04/28/2016 Results Test Result Range Comp. Metabolic Panel (14) - 08/30/16 12 :39 Glucose, Serum 91 mg/dL 65-99 [...] culture - 06/06/19 13:57 Bacterial urine culture [id number] NRG COLONY COUNT 10,000 CFU/ML NRG FTX;REPORTABLE [...] FOR INFLUENZA A AND B ANTIGENS BY [facility] Influenza virus A and B antigen detectio n - 01/25/20 21:18 FLU RESULT NEGATIVE FOR INFLUENZA A AND B ANTIGENS BY [place] [facility] Complete blood count (CBC) with automate d [...] urinalysis with reflex to cultu re - 01/25/20 23:13 Urine color determination YELLOW NRG Urine [...] 0.0 10*3/uL 0.0-0.1 Comprehensive metabolic panel - 04/18/20 19:42 Serum or plasma sodium measurement (moles/volume) 110 mmol/L 135-145 Serum or plasma potassium measurement (moles/volume) 5.7 mmol/L 3.6-5.0 Serum or plasma chloride measurement (moles/volume) 83 mmol/L 98-107 Carbon dioxide 14 mmol/L 21-32 Serum or plasma anion gap determination (moles/volume) 13 mmol/L 5-14 Serum or plasma urea nitrogen measurement (mass/volume ) 9 mg/dL 7-18 Serum or plasma creatinine measurement (mass/volume) 0.86 mg/dL 0.60-1.30 Serum or plasma urea nitrogen/creatinine mass ratio 10 NRG Serum or plasma creatinine measurement w ith calculation of estimated glomerular filtration rate > NRG Serum or plasma glucose measurement (mass/volume) 147 mg/dL 70-105 Serum or plasma calcium measurement (mass/volume) 8.2 mg/dL 8.5-10.1 Serum or plasma total bilirubin measurement (mass/volu me) 1.0 mg/dL 0.1-1.0 Serum or plasma alkaline phosphatase bairon surement (enzymatic activity/volume) 107 U/L 40-136 Serum or plasma aspartate aminotransfera se measurement (enzymatic activity/volume) 27 U/L 5-34 Serum or plasma alanine aminotransferase measurement (enzymatic activity/volume) 18 U/L 0-55 Serum or plasma protein measurement (mass/volume) 6.9 g/dL 6.4-8.2 Serum or plasma albumin measurement (mass/volume) 3.9 g/dL 3.2-4.5 CALCIUM CORRECTED 8.3 mg/dL 8.5-10.1 Magnesium - 04/18/20 19:42 Magnesium 1.8 mg/dL 1.6-2.4 Serum or plasma troponin i.cardiac measu rement (mass/volume) - 04/18/20 19:42 Serum or plasma troponin i.cardiac measurement (mass/v olume) < ng/mL <0.028 Serum or plasma C reactive protein measu rement (mass/volume) - 04/18/20 19:42 Serum or plasma C reactive protein measurement (mass/v olume) 10.77 mg/dL 0.00-0.50 Serum or plasma lithium measurement (mol es/volume) - 04/18/20 19:42 B[place] 3636.6 pg/mL <100.0 Blood lactic acid measurement (moles/vol ume) - 04/18/20 19:42 Blood lactic acid measurement (moles/volume) 3.03 mmol/L 0.50-2.00 Manual absolute plasma cell count - 04/01 07/21 19:42 Blood monocytes/100 leukocytes 16 % NRG Manual blood segmented neutrophils/100 leukocytes 78 % NRG Blood band neutrophils/100 leukocytes 1 % NRG Manual blood lymphocytes/100 leukocytes 5 % NRG Blood erythrocyte morphology finding identification NORMAL NRG Arterial blood gas measurement - 0 20:05 [...] Status Pt. Type Provider Facility Loc./Unit Complaint [id number] 03/25/2015 15:23:00 03/25/2015 23:59: 59 CLS Outpatient MAX CONRADKATHYA Keysha [id number] 03/03/2015 16:04:00 03/03/2015 23:59: 59 CLS Outpatient BRITNEY MARTINESMARIA LUISA [id number] 02/14/2015 11:40:00 02/14/2015 23:59: 59 CLS Outpatient HAFSA AGUIRRE APRNNDA S [id number] 01/03/2015 14:48:00 01/03/2015 23:59: 59 CLS Outpatient HAFSA AGUIRRE APRNNDA S [id number] 11/28/2014 08:23:00 11/28/2014 23:59: 59 CLS Outpatient KADY MATTHEWS MD [id number] 11/08/2014 00:00:00 11/08/2014 23:59: 59 CLS Outpatient HAFSA AGUIRRE APRNNDA S [id number] 10/18/2014 14:56:00 10/18/2014 23:59: 59 CLS Outpatient HAFSA AGUIRRE APRNNDA S [id number] 10/13/2014 17:48:00 10/13/2014 23:59: 59 CLS Outpatient JOHANNY KAN HUSAM Hall [id number] 07/29/2014 00:00:00 07/29/2014 23:59: 59 CLS Outpatient BRITNEY MARTINESMARIA LUISA [id number] 05/17/2014 15:12:00 05/17/2014 23:59: 59 CLS Outpatient MELISSA DONIS DDS [id number] 04/08/2014 00:00:00 04/08/2014 23:59: 59 CLS Outpatient HAFSA AGUIRRE APRNNDA S [id number] 02/23/2014 14:07:00 02/23/2014 23:59: 59 CLS Outpatient HAFSA AGUIRRE APRNNDA S [id number] 02/23/2014 14:07:00 02/23/2014 23:59: 59 CLS Outpatient TIMOTHY KAN WOLF S [id number] 02/05/2014 11:39:00 02/05/2014 23:59: 59 CLS Outpatient HAFSA AGUIRRE APRNNDA S [id number] 01/25/2014 14:13:00 01/25/2014 23:59: 59 CLS Outpatient WOLF AGUIRRE APRN [id number] 01/20/2014 13:07:00 01/20/2014 23:59: 59 CLS Outpatient MORAIMA NICOLE DO Dedra [id number] 10/07/2013 15:08:00 10/07/2013 23:59: 59 CLS Outpatient JUAREZ GREEN DDS [id number] 09/07/2013 09:10:00 09/07/2013 23:59: 59 CLS Outpatient JUAREZ GREEN DDS [id number] 02/10/2013 17:22:00 02/10/2013 23:59: 59 CLS Outpatient BONNIE LOCKETTMORAIMA [id number] 02/03/2013 17:51:00 02/03/2013 23:59: 59 CLS Outpatient [id number] 01/13/2013 10:37:00 01/13/2013 23:59: 59 CLS Outpatient TIMOTHYWOLF MARTIN APRN Luis Eduardo [id number] 01/03/2013 14:22:00 01/03/2013 23:59: 59 CLS Outpatient JOHANNY GAINESJordyn HUSAM Hall [id number] 11/21/2012 13:05:00 11/21/2012 23:59: 59 CLS Outpatient LJ MARTINESKAELA [id number] 11/11/2012 16:00:00 11/11/2012 23:59: 59 CLS Outpatient [id number] 09/24/2012 15:10:00 09/24/2012 23:59:5 9 CLS Outpatient [id number] 06/23/2013 11:06:00 Document Registration [id number] 04/03/2013 15:23:00 Document Registration [id number] 04/03/2013 15:23:00 Document Registration [id number] 03/31/2013 15:12:00 Document Registration [id number] 01/25/2020 22:16:00 020 14:24:00 DIS Inpatient AILEEN MUNIZ DO, [facility] 4TH NSTEMI,AE CHF,LLL PNEUM ONIA [id number] 01/09/2020 00:09:00 020 04:26:00 DIS Emergency JIN DOMINGUEZ, CHANNING Raymundo [facility] ER HANK NGUYEN [id number] 06/06/2019 14:47:00 019 14:04:00 DIS Inpatient MELANY STOKES MD [facility] 4TH CHF EXACERBATION,NSTEMI [id number] 06/02/2019 06:49:00 019 23:59:59 CLS Outpatient DARREN DOMINGUEZ FACC, MARK ACOSTA CC DS [facility] CARD CAD, CAROTI D ARTERIAL DISEASE [id number] 02/11/2019 17:03:00 019 12:15:00 DIS Inpatient JAGDISH MUNIZ DOI V ia [facility] 4TH PNEUMONIA;HYPONATREMIA; PLEURAL EFFUSIONS [id number] 02/09/2019 02:06:00 019 05:32:00 DIS Emergency MEI HILL MD [facility] ER SOA [id number] 08/20/2018 12:29:00 018 15:16:00 DIS Emergency MANUEL BOONE [facility] ER ABD PAIN [id number] 09/18/2017 11:13:00 017 14:45:00 DIS Outpatient SHANDA SAINI MD [facility] ENDO ABDOMINAL PAIN [id number] 09/16/2017 05:57:00 017 15:00:00 DIS Outpatient SHANDA SAINI MD [facility] PREOP ABD PAIN [id number] 07/30/2017 17:15:00 017 20:55:00 DIS Emergency MEI HILL MD [facility] ER CONSTIPATION [id number] 03/08/2017 15:00:00 017 19:15:00 DIS Emergency VAN GILLETTE APRN [facility] ER BOTH HIP PAIN [id number] 08/10/2016 03:53:00 016 07:46:00 DIS Emergency MEI HILL MD [facility] ER NAUSEA,ABD PAIN ,WEAK PULSE [id number] 05/02/2016 11:11:00 016 14:15:00 DIS Inpatient MELANIE DOMINGUEZ, FRANCE Henson [facility] IRF HIP FRACTURE [id number] 02/06/2016 09:53:00 016 15:43:00 DIS Inpatient LEVON DOMINGUEZ, FRED Ann [facility] ICU CHEST PAIN DIARRHEA DEH YDRATION [id number] 09/05/2015 15:56:00 015 23:59:59 CLS Outpatient WOLF AGUIRRE [facility] RAD SCREENING [id number] 07/27/2015 15:47:00 015 00:01:00 DIS Outpatient SCARLETT NUNES, URBANO Colmenares [facility] CARD BRADYCARDIA [id number] 07/25/2015 21:35:00 015 16:04:00 DIS Inpatient VIRGINIA DOMINGUEZ, FLO Rdz [facility] ICU CHEST PAIN [id number] 05/18/2015 15:00:00 015 23:59:59 CLS Preadmit WOLF AGUIRRE [facility] RAD [id number] 11/06/2014 01:17:00 014 15:42:00 DIS Inpatient CASSIE DOMINGUEZ, KADY Raymundo [facility] CSD SYMPTOMATIC BRADYCARDIA ,N/V,ABD PAIN,COLITIS [id number] 05/04/2014 11:32:00 014 23:59:59 CLS Outpatient WOLF AGUIRRE [facility] RAD SCREENING [id number] 03/01/2014 08:35:00 014 11:15:00 DIS Outpatient BOB ARZATE MD [facility] SDC CONSTIPATION [id number] 02/25/2014 07:26:00 014 23:59:59 CLS Outpatient BOB ARZATE MD [facility] PREOP CONSTIPATION [id number] 04/09/2013 11:14:00 013 23:59:59 CLS Outpatient DEEPTI MATHUR APRN [facility] RAD SCREENING [id number] 04/18/2020 21:10:[address] Inpatient AILEEN MUNIZ DO [facility] ACUTE CHF [id number] 04/27/2016 18:50:[address] Inpatient KADY MATTHEWS MD [facility] 4TH [place] [id number] 12/24/2019 10:40:00 12/24/2019 23:59:5 9 [facility] Outpatient WOLF AGUIRRE APRN [facility] [id number] 08/01/2016 18:05:00 Document Registration [id number] 10/02/2016 05:05:00 Document Registration [id number] 09/30/2016 07:05:00 Document Registration [id number] 09/13/2016 18:05:00 Document Registration
[2020-04-18 22:55] VITALS: BP 129/75
[2020-04-18 23:15] VITALS: BP 103/75
[2020-04-18 23:30] VITALS: BP 115/58
[2020-04-18 23:45] VITALS: BP 124/69
[2020-04-18 23:50] VITALS: BP 108/49
[2020-04-19] VITALS (24 sets, daily range): BP systolic 88–123; BP diastolic 46–67
[2020-04-19] MEDS ORDERED: RT-ALBUTEROL SULF 2.5 MG/3 ML PRE-MIX VIAL INH PRN (00:15)
[2020-04-19] MEDS ORDERED: VANCOMYCIN 750 MG/VIAL IV ONE (00:30)
[2020-04-19] MEDS ORDERED: NS (IVPB) 250 ML ONE (00:30)
[2020-04-19] MEDS ORDERED: EPINEPHrine 1 MG INJECTION 2 MG in NS (IVPB) 248 ML IV SCH (00:30)
[2020-04-19] MEDS: NOREPINEPHRINE 4 MG/250 ML 250 ML IV SCH ×3 (00:54→18:07)
[2020-04-19] MEDS: VASOPRESSIN INJECTION 20 UNIT in NORMAL SALINE 100 ML IV SCH ×3 (00:54→16:21)
[2020-04-19] MEDS: VANCOMYCIN INJECTION 750 MG in NS (IVPB) 250 ML IV SCH (00:54)
[2020-04-19] MEDS ORDERED: RT-ALBUTEROL SULF 2.5 MG/3 ML PRE-MIX VIAL INH SCH (02:00)
[2020-04-19] MEDS ORDERED: NS (IVPB) 100 ML ONE (02:52)
[2020-04-19] MEDS ORDERED: PIPERACILLIN/TAZO 4.5 GM VIAL (ZOSYN) IV ONE (02:52)
[2020-04-19] MEDS: PIPERACILLIN/TAZOBACTAM (BULK) 4.5 GM in NS (IVPB) 100 ML IV SCH ×3 (03:54→20:07)
[2020-04-19 03:55] LABS: ABG BASE EXCESS -1.8 MMOL/L (-2.5-2.5); ABG OXYGEN SATURATION 96 % (94-100); ABG PCO2 28 MMHG (35-45); ABG PO2 83 MMHG (79-93); ABG TCO2 22.1 MMOL/L (21.0-31.0)
[2020-04-19 04:03] LABS: ALLENS TEST YES-POS
[2020-04-19 04:04] LABS: INSPIRED O2 30%; PATIENT TEMP 36.2; VENTILATOR NO
[2020-04-19 05:03] LABS: BASOPHILS % (AUTO) 0 % (0-10); EOSINOPHILS % (AUTO) 0 % (0-10); HEMATOCRIT 32 % (35-52); HEMOGLOBIN 11.5 G/DL (11.5-16.0); LYMPHOCYTES # (AUTO) 0.4 X 10^3 (1.0-4.0); LYMPHOCYTES % (AUTO) 2 % (12-44); MEAN CORPUSCULAR HEMOGLOBIN 30 PG (25-34); MEAN CORPUSCULAR HGB CONC 36 G/DL (32-36); MEAN CORPUSCULAR VOLUME 84 FL (80-99); MEAN PLATELET VOLUME 12.2 FL (7.4-10.4); MONOCYTES # (AUTO) 0.9 X 10^3 (0.0-1.0); MONOCYTES % (AUTO) 6 % (0-12); NEUTROPHILS # (AUTO) 15.9 X 10^3 (1.8-7.8); NEUTROPHILS % (AUTO) 92 % (42-75); PLATELET COUNT 185 10^3/uL (130-400); RED CELL DISTRIBUTION WIDTH 16.4 % (10.0-14.5); WHITE BLOOD COUNT 17.2 10^3/uL (4.3-11.0)
[2020-04-19 05:27] LABS: ALANINE AMINOTRANSFERASE 14 U/L (0-55); ALBUMIN 3.7 GM/DL (3.2-4.5); ALKALINE PHOSPHATASE 90 U/L (40-136); BILIRUBIN,TOTAL 0.9 MG/DL (0.1-1.0); BUN/CREATININE RATIO 13; CALCIUM 8.3 MG/DL (8.5-10.1); CARBON DIOXIDE 17 MMOL/L (21-32); CHLORIDE 87 MMOL/L (98-107); CREATININE SERUM 0.78 MG/DL (0.60-1.30); GFR ESTIMATED > 60; GLUCOSE 114 MG/DL (70-105); MAGNESIUM 1.7 MG/DL (1.6-2.4); PHOSPHORUS 2.6 MG/DL (2.3-4.7); POTASSIUM 4.1 MMOL/L (3.6-5.0); TOTAL PROTEIN 6.2 GM/DL (6.4-8.2)
[2020-04-19 05:29] LABS: SODIUM 118 MMOL/L (135-145)
[2020-04-19] MEDS: KCL 20 MEQ TAB (K-DUR) PO SCH (05:30)
[2020-04-19] MEDS: MAGNESIUM 1 GM/100 ML IVPB 100 ML IV SCH ×3 (05:30→08:05)
[2020-04-19] MEDS: POTASSIUM CL 10MEQ/50ML IVPB 50 ML IV SCH (05:30)
[2020-04-19] MEDS ORDERED: ENOXAPARIN 40 MG/0.4 ML (LOVENOX) SYR SC SCH (06:00)
--- NOTE | 2020-04-19 06:00 | Pulmonary Consultation ---
History of Present Illness History of Present Illness Date Seen by Provider: April 19, 2020 Time Seen by Provider: 05:55 Date of Admission History of Present Illness 80yo presented to ED via EMS secondary to acute worsening respiratory failure. Sp02 is 79% upon EMS arrival. Pt was not on oxygen at that time. Spo02 did improve with oxygen. No fevers. Pt required BiPAP through the night. Pt was given Lasix and Has improved some with lasix. EICU ordered COVID testing. I am consulted for ICU management. Patient denies chest pain, nausea, vomiting or diarrhea Allergies and Home Medications Allergies Coded Allergies: clindamycin (Unverified Allergy, Unknown, 02/11/19) morphine (Verified Allergy, Unknown, 02/11/19) can take hydrocodone per pt Home Medications Acetaminophen 500 Mg Tablet, 500 MG PO Q4H PRN for PAIN-MILD, (Reported) Aspirin 81 Mg Tablet.dr, 81 MG PO HS, (Reported) Atorvastatin Calcium 20 Mg Tablet, 80 MG PO HS Prescribed by: MARIAH BOWDEN on 01/26/20 1407 Carvedilol 3.125 Mg Tablet, 3.125 MG PO BID Prescribed by: RED ALVARADO on 01/28/20 0950 Cholecalciferol (Vitamin D3) 1,000 Unit Tablet, 2,000 UNIT PO HS, (Reported) Clonazepam 0.5 Mg Tablet, 0.5 MG PO HS, (Reported) Clopidogrel Bisulfate 75 Mg Tablet, 75 MG PO DAILY, (Reported) Duloxetine HCl 60 Mg Capsule.dr, 60 MG PO DAILY, (Reported) Folic Acid 1 Mg Tablet, 1 MG PO HS, (Reported) Furosemide 40 Mg Tablet, 80 MG PO DAILY Prescribed by: MARIAH BOWDEN on 01/26/20 1411 Magnesium Hydroxide 400 Mg/5 Ml Oral.susp, 30 ML PO DAILY PRN for CONSTIPATION- 7TH LINE, (Reported) Mirtazapine 15 Mg Tablet, 15 MG PO HS, (Reported) Potassium Chloride 20 Meq Tab.er.prt, 20 MEQ PO BID WITH MEALS Prescribed by: MELANY STOKES on 06/10/19 1155 Promethazine HCl 25 Mg Supp, 25 MG KS Q4H PRN for NAUSEA/VOMITING-2ND LINE Prescribed by: AILEEN MUNIZ on 01/28/20 1010 Rivastigmine 1 Each Patch.td24, 9.5 MG TD DAILY, (Reported) Sacubitril/Valsartan 1 Each Tablet, 1 TAB PO BID Prescribed by: MELANY STOKES on 06/10/19 1155 Sennosides 8.6 Mg Tablet, 8.6 MG PO DAILY, (Reported) Past Djlojtn-Dqhnzj-Qcfryl Hx Past Med/Social Hx: Reviewed Nursing Past Med/Soc Hx Patient Social History Alcohol Use: Denies Use Recreational Drug Use: No Smoking Status: Never a Smoker Recent Foreign Travel: No Contact w/Someone Who Travel: No Recent Infectious Disease Expo: No Recent Hopitalizations: No Immunizations Up To Date Tetanus Booster (TDap): Unknown Date of Pneumonia Vaccine: April 01, 2009 Date of Influenza Vaccine: Sep 01, 2018 Seasonal Allergies Seasonal Allergies: No Past Medical History Surgeries: Yes (TRIPLE BYPASS-2005, r HIP REPLAEMENT , l hip 2016) Breast, Cardiac, CABG, Joint Replacement, Open Heart Surgery, Orthopedic Respiratory: No Currently Using CPAP: No Cardiac: Yes (CABG, chf) Atrial Fibrillation, Coronary Artery Disease, High Cholesterol, Hypertension Neurological: Yes Dementia Reproductive Disorders: Yes Female Reproductive Disorders: Denies RECOVERER History: Menopausal Sexually Transmitted Disease: No HIV/AIDS: No Genitourinary: Yes Bladder Infection, UTI-Chronic Gastrointestinal: Yes Gastroesophageal Reflux, Chronic Constipation Musculoskeletal: Yes Arthritis, Fractures Endocrine: No HEENT: No Cancer: No Psychosocial: Yes Anxiety, Depression Integumentary: Yes Pruritis Blood Disorders: No Adverse Reaction/Blood Tranf: No Family Medical History Reviewed Nursing Family Hx Cardiovascular disease 19 MOTHER Diabetes mellitus G8 BROTHER Hypercholesterolemia 19 FATHER Review of Systems Time Seen by Provider: 06:05 Sepsis Event Evaluation Height, Weight, BMI Height: 5'5.00" Weight: 169lbs. 5.0oz. 76.084388ty; 29.05 BMI Method:Stated Exam Exam Vital Signs Date Time Temp Pulse Resp B/P (MAP) Pulse Ox O2 Delivery O2 Flow Rate FiO2 04/19/20 05:00 52 20 108/48 (68) 97 NIV Bilevel 25.00 04/19/20 04:00 NIV Bilevel 25 04/19/20 04:00 55 15 114/54 (74) 96 NIV Bilevel 25.00 04/19/20 03:56 36.2 04/19/20 03:00 54 9 110/60 (77) 98 NIV Bilevel 25.00 04/19/20 02:45 NIV Bilevel 25.00 04/19/20 02:35 56 16 100 30.00 04/19/20 02:00 55 13 114/51 (72) 98 NIV Bilevel 30.00 04/19/20 01:00 61 14 121/58 (79) 96 NIV Bilevel 30.00 04/19/20 01:00 60 04/19/20 00:36 NIV Bilevel 30.00 04/19/20 00:15 58 18 123/57 (79) 100 NIV Bilevel 35.00 04/19/20 00:00 NIV Bilevel 35 04/18/20 23:52 36.7 04/18/20 23:50 37.0 58 98 50 04/18/20 23:45 62 16 124/69 (87) 99 NIV Bilevel 35.00 04/18/20 23:30 59 18 115/58 (77) 100 NIV Bilevel 35.00 04/18/20 23:15 59 14 103/75 (84) 100 NIV Bilevel 35.00 04/18/20 23:03 67 16 105/56 98 NIV Bilevel 04/18/20 22:55 35.8 60 14 129/75 (93) 98 NIV Bilevel 35.00 04/18/20 22:55 82 24 100 35.00 04/18/20 22:55 61 04/18/20 22:45 NIV Bilevel 35 04/18/20 22:43 75 19 99 50.00 04/18/20 22:38 65 16 105/56 100 NIV Bilevel 04/18/20 20:00 37.0 58 18 108/49 (68) 98 NIV Bilevel 04/18/20 19:30 88 24 99 100.00 I & O 04/19/20 07:00 Intake Total 1100 ml Output Total 1950 ml Balance -850 ml Height & Weight Height: 5'5.00" Weight: 169lbs. 5.0oz. 76.521611wn; 29.05 BMI Method:Stated General Appearance: Chronically ill, Mild Distress HEENT: PERRL/EOMI, Pharynx Normal Neck: Full Range of Motion, Normal Inspection, Non Tender, Supple Respiratory: Crackles (throughout with left greater than right), Expiration, Inspiration, Respiratory Distress (improved on BiPAP) Cardiovascular: Regular Rate, Rhythm, No Murmur Capillary Refill: Less Than 3 Seconds Extremity: Normal Range of Motion, Non Tender Neurologic/Psychiatric: Alert, Oriented x3 Results Lab Laboratory Tests 04/18/20 19:42 04/19/20 04:43 Assessment/Plan Assessment/Plan Acute respiratory failure -Pt is a DNR -COVID testing per EICU -BiPAP -Duriverabs CHFAE -Lasix is scheduled -check echo Leukocytosis -Check Ponce cultures -Check UA -Continue vanco, zosyn DVT ppx -Start Lovenox RUDY MEYERS DO April 19, 2020 06:00
[2020-04-19] MEDS ORDERED: ENOXAPARIN 40 MG/0.4 ML (LOVENOX) SYR ONE (06:07)
--- NOTE | 2020-04-19 06:33 | NUR ---
pt is off bipap at this time per dr. zaidi's order. pt was placed on 2l nc. Addendum: 04/19/20 at 0634 by DRAGAN HARO RT Amended: Links added.
[2020-04-19 06:36] LABS: BILIRUBIN,URINE NEGATIVE (NEGATIVE); CLARITY,URINE CLEAR; COLOR,URINE YELLOW; GLUCOSE, URINE (UA) NEGATIVE (NEGATIVE); KETONES,URINE NEGATIVE (NEGATIVE); LEUKOCYTE ESTERASE ,URINE NEGATIVE (NEGATIVE); NITRITE,URINE NEGATIVE (NEGATIVE); PH,URINE 5.5 (5-9); PROTEIN,URINE NEGATIVE (NEGATIVE)
[2020-04-19 06:45] LABS: BACTERIA,URINE NEGATIVE /HPF; SQUAMOUS EPITHELIAL CELL,UR RARE /HPF
--- NOTE | 2020-04-19 07:07 | History & Physical-Hospitalist ---
History of Present Illness HPI/Chief Complaint CC: SOB with sodium level 110 HPI: This is a 80yoWF known to me of [facility] who presents with acute exacerbation of CHF and superimposed infiltrate on chest X-ray. Pt was placed on IV Lasix, cardiology was consulted along with pulmonology and she has since improved, her sodium level of 110 is now 118, with fluid restriction and supportive care. Palliative care will be consulted because she appears to be even more in-stage then she was three months ago when I sent her to the half-way. Source: patient Exam Limitations: no limitations Date Seen 04/19/20 Time Seen by a Provider: 10:00 Attending Physician Jazlyn Mcneal DO [facility] Referring Physician Date of Admission April 18, 2020 at 21:10 Home Medications & Allergies Home Medications Reviewed patient Home Medication Reconciliation performed by pharmacy medication reconciliations instructor adjunct pharmacy technician and/or nursing. Patients Allergies have been reviewed. Allergies Allergies Coded Allergies clindamycin (Unverified Allergy, Unknown, 02/11/19) morphine (Verified Allergy, Unknown, 02/11/19) can take hydrocodone per pt Past Wsiqplj-Qteiaa-Wxobsp Hx Past Med/Social Hx: Reviewed Nursing Past Med/Soc Hx, Reviewed and Corrections made Patient Social History Marrital Status: single Employed/Student: retired Alcohol Use: Denies Use Recreational Drug Use: No Smoking Status: Never a Smoker Recent Foreign Travel: No Contact w/other who traveled: No Recent Hopitalizations: No Recent Infectious Disease Expo: No Immunizations Up To Date Tetanus Booster (TDap): Unknown Date of Pneumonia Vaccine: April 01, 2009 Date of Influenza Vaccine: Sep 01, 2018 Seasonal Allergies Seasonal Allergies: No Past Medical History Surgeries: Breast, Cardiac, CABG, Joint Replacement, Open Heart Surgery, Orthopedic Currently Using CPAP: No Cardiac: Atrial Fibrillation, Coronary Artery Disease, High Cholesterol, Hypertension Neurological: Dementia Reproductive: Yes Sexually Transmitted Disease: No HIV/AIDS: No Female Reproductive Disorders: Denies Menopausal Genitourinary: Bladder Infection, UTI-Chronic Gastrointestinal: Gastroesophageal Reflux, Chronic Constipation Musculoskeletal: Arthritis, Fractures Psychosocial: Anxiety, Depression Skin/Integumentary: Pruritis History of Blood Disorders: No Adverse Reaction to Blood Bryan: No Family History Reviewed Nursing Family Hx Cardiovascular disease 19 MOTHER Diabetes mellitus G8 BROTHER Hypercholesterolemia 19 FATHER Review of Systems Constitutional: see HPI Respiratory: dyspnea on exertion Physical Exam Physical Exam Vital Signs Vital Signs - First Documented 04/18/20 04/18/20 04/18/20 19:30 20:00 22:45 Temp 37.0 Pulse 88 Resp 24 B/P (MAP) 108/49 (68) Pulse Ox 99 O2 Delivery NIV Bilevel O2 Flow Rate 100.00 FiO2 35 Capillary Refill : Less Than 3 Seconds Height, Weight, BMI Height: 5'5.00" Weight: 169lbs. 5.0oz. 76.442568mq; 29.05 BMI Method:Stated General Appearance: Anxious, Chronically ill, Mild Distress HEENT: PERRL/EOMI Respiratory: Chest Non Tender, No Accessory Muscle Use, No Respiratory Distress, Decreased Breath Sounds Cardiovascular: Regular Rate, Rhythm, No Edema, No Gallop, No JVD, No Murmur, Normal Peripheral Pulses Neurologic/Psychiatric: Alert, Disoriented Results Results/Procedures Labs Laboratory Tests 04/18/20 19:42 04/19/20 04:43 Patient resulted labs reviewed. Assessment/Plan Admission Diagnosis Assessment: Severe AECHF CAD Dementia HTN Hypoxia Plan: ICU Palliative care Poor prognosis DNR Admission Status: Inpatient Order (span 2 midnights) Reason for Inpatient Admission: CHF Diagnosis/Problems Diagnosis/Problems (1) CHF exacerbation Status: Acute (2) Elevated brain natriuretic peptide (BNP) level Status: Acute (3) Dementia Status: Chronic (4) CAD (coronary artery disease) Status: Chronic (5) Anxiety Status: Chronic Clinical Quality Measures DVT/VTE Risk/Contraindication: Risk Factor Score Per Nursin RFS Level Per Nursing on Admit: 4+=Very High JAZLYN MCNEAL DO April 19, 2020 07:07
[2020-04-19] MEDS: CLOPIDOGREL 75 MG (PLAVIX) TABLET PO SCH (08:05)
[2020-04-19] MEDS: FUROSEMIDE 40 MG/4 ML INJ (LASIX) IV SCH ×2 (08:05→20:08)
[2020-04-19] MEDS ORDERED: CARV3.12 PO (08:39)
[2020-04-19] MEDS ORDERED: POTA20TA15 PO (08:39)
[2020-04-19] MEDS ORDERED: ACET325T49 PO (08:39)
[2020-04-19] MEDS ORDERED: ATOR80TA76 PO (08:39)
[2020-04-19] MEDS ORDERED: SACU1TAB2 PO (08:39)
[2020-04-19] MEDS ORDERED: CLOP75TA69 PO (08:39)
[2020-04-19] MEDS ORDERED: MAG30ORA2 PO (08:39)
[2020-04-19] MEDS ORDERED: SENN-145 PO (08:39)
[2020-04-19] MEDS ORDERED: HALO100V4 IM (08:39)
[2020-04-19] MEDS ORDERED: VANCOMYCIN INJECTION 1,000 MG in NS (IVPB) 250 ML IV SCH ×2 (09:00→22:00)
[2020-04-19] MEDS ORDERED: FURO40TA4 PO (09:40)
[2020-04-19] MEDS ORDERED: SENN-234 PO (09:42)
--- NOTE | 2020-04-19 09:44 | NUR ---
I ENTERED THE MED REC USING THE MEDICATION REVIEW REPORT FROM [facility] [place] THE MED LIST FROM [facility] AND THE MED REC DID NOT MATCH- I CONTACTED [facility] AND HAD THEM FAX A MED LIST OF WHAT THEY HAVE FILLED RECENTLY (THEY BUBBLE PACK FOR THE FACILITY) AND THOSE RECORDS MATCHED THE REPORT FROM THE [facility] KLONOPIN 0.5MG- ON THE EXT MED HISTORY AND THE LIST FROM [facility] IT SHOWS DIRECTIONS OF " 1 TAB BID", I CALLED THE FACILITY SINCE THIS WAS NOT LISTED ON THE MEDICATION REPORT AND IT HAD BEEN FILLED EVERY MONTH SINCE JANUARY 2020. I WAS TOLD FROM THE PATIENTS NURSE THAT THE PATIENT REFUSES TO TAKE IT DURING THE DAY AND WILL SOMETIMES TAKE IT AT NIGHT- I INCLUDED IT ON THE MED REC WITH DIRECTIONS OF 1 TAB HS PRN LASIX: ON THE EXT MED HISTORY IT SHOWS 80MG 1 TAB DAILY, BUT ON THE MED LIST FROM THE FACILITY IT SHOWS 40MG- 1 TAB Q 48 H AND [facility] ALSO HAD THESE DIRECTIONS.
[2020-04-19] MEDS: NS IV 500 ML 500 ML IV SCH (13:06)
--- NOTE | 2020-04-19 13:52 | Consultation-Cardiology ---
HPI-Cardiology Cardiology Consultation: Date of Consultation 04/19/20 Date of Admission Attending Physician Jazlyn Mcneal DO Admitting Physician [facility] Consulting Physician RED BELLO Review of Systems-Cardiology All Other Systems Reviewed Negative Unless Noted: Yes RNP-Tgcolf-Wuuhjk Hx Patient Social History Alcohol Use: Denies Use Recreational Drug Use: No Smoking Status: Never a Smoker Recent Foreign Travel: No Recent Infectious Disease Expo: No Immunizations Up To Date Tetanus Booster (TDap): Unknown Date of Pneumonia Vaccine: April 01, 2009 Date of Influenza Vaccine: Sep 01, 2018 Past Medical History PMH As described under Assessment. Family Medical History Family Medical History: Reported h/o her mother having CAD and her father having high cholesterol. Family History: Cardiovascular disease 19 MOTHER Diabetes mellitus G8 BROTHER Hypercholesterolemia 19 FATHER Allergies and Home Medications Allergies Coded Allergies: clindamycin (Unverified Allergy, Unknown, 02/11/19) morphine (Verified Allergy, Unknown, 02/11/19) can take hydrocodone per pt Home Medications Acetaminophen 325 Mg Tablet, 650 MG PO BID, (Reported) Aspirin 81 Mg Tablet.dr, 81 MG PO HS, (Reported) Atorvastatin Calcium 80 Mg Tablet, 80 MG PO HS, (Reported) Carvedilol 3.125 Mg Tablet, 3.125 MG PO BID, (Reported) Clonazepam 0.5 Mg Tablet, 0.5 MG PO HS PRN for ANXIETY, (Reported) Clopidogrel Bisulfate 75 Mg Tablet, 75 MG PO DAILY, (Reported) Furosemide 40 Mg Tablet, 40 MG PO Q48H, (Reported) Haloperidol Decanoate 100 Mg/1 Ml Vial, 100 MG IM MONTHLY, (Reported) Mag Hydrox/Al Hydrox/Simeth 30 Ml Oral.susp, 30 ML PO Q6H PRN for INDIGESTION, (Reported) Magnesium Hydroxide 400 Mg/5 Ml Oral.susp, 30 ML PO DAILY PRN for CONSTIPATION- 7TH LINE, (Reported) Potassium Chloride 20 Meq Tab.er.prt, 20 MEQ PO BID WITH MEALS, (Reported) Sacubitril/Valsartan 1 Each Tablet, 1 TAB PO BID, (Reported) Sennosides 8.6 Mg Tablet, 8.6 MG PO BID, (Reported) Physical Exam-Cardiology Physical Exam Vital Signs/I&O 04/20/20 04/20/20 04/20/20 04/20/20 01:00 01:00 02:00 03:04 Pulse 56 56 56 58 Resp 10 11 11 B/P (MAP) 94/46 (62) 94/47 (63) 106/58 (74) Pulse Ox 97 100 97 O2 Delivery Nasal Cannula Nasal Cannula Nasal Cannula O2 Flow Rate 2.00 2.00 2.00 20 5/ 5/ 5 03:12 03:15 04:00 05:00 Temp 36.1 Pulse 49 63 Resp 10 19 B/P (MAP) 104/53 (70) 104/61 (75) Pulse Ox 99 92 O2 Delivery Nasal Cannula Nasal Cannula Nasal Cannula O2 Flow Rate 2.00 2.00 2.00 04/20/20 04/20/20/04/20/20 06:01 06:14 06:54 07:00 Pulse 55 61 58 Resp 11 18 B/P (MAP) 103/53 (70) 95/54 (68) Pulse Ox 100 99 96 O2 Delivery Nasal Cannula Nasal Cannula Nasal Cannula O2 Flow Rate 2.00 2.00 2.00 04/20/20 04/20/20/04/20/20 07:58 08:00 08:00 09:00 Temp 36.7 Pulse 58 59 Resp 17 13 B/P (MAP) 102/49 (66) 99/61 (74) Pulse Ox 96 96 O2 Delivery Nasal Cannula Nasal Cannula Nasal Cannula O2 Flow Rate 2.00 04/20/20 04/20/20/04/20/20 10:00 10:22 11:00 12:04 Temp 36.6 Pulse 54 57 Resp 12 14 B/P (MAP) 112/48 (69) 113/49 (70) Pulse Ox 100 100 O2 Delivery Nasal Cannula Nasal Cannula Nasal Cannula O2 Flow Rate 2.00 04/20/20 00:00 Intake Total 120 ml Output Total 2425 ml Balance -2305 ml Capillary Refill : Less Than 3 Seconds Skin: normal color, warm/dry Data Review Labs Laboratory Tests 04/20/20 02:43: White Blood Count 13.2H, Red Blood Count 3.76L, Hemoglobin 11.3L, Hematocrit 32L , Mean Corpuscular Volume 86, Mean Corpuscular Hemoglobin 30, Mean Corpuscular Hemoglobin Concent 35, Red Cell Distribution Width 17.4H, Platelet Count 209, Mean Platelet Volume 12.5H, Neutrophils (%) (Auto) 80H, Lymphocytes (%) (Auto) 4L, Monocytes (%) (Auto) 16H, Eosinophils (%) (Auto) 0, Basophils (%) (Auto) 0, Neutrophils # (Auto) 10.5H, Lymphocytes # (Auto) 0.6L, Monocytes # (Auto) 2.1H, Eosinophils # (Auto) 0.0, Basophils # (Auto) 0.0, Sodium Level 130L, Potassium Level 3.4L, Chloride Level 93L, Carbon Dioxide Level 23, Anion Gap 14, Blood Urea Nitrogen 11, Creatinine 0.74, Estimat Glomerular Filtration Rate > 60, BUN/Creatinine Ratio 15, Glucose Level 96, Calcium Level 8.3L, Phosphorus Level 3.4, Magnesium Level 2.5H Microbiology 04/18/20 MRSA Screen - Final, Complete MRSA not isolated 04/18/20 Blood Culture - Preliminary, Resulted No growth Radiology NAME: [facility] REC#: [id number] PT STATUS: REG ER : 1940 PHYSICIAN: MEI HILL MD ADMIT DATE: 04/18/20/ER Signed Date of Exam:04/18/20 CHEST 1 VIEW, AP/PA ONLY INDICATION: Shortness of breath. COMPARISON made with a prior study from January 28, 2020. FINDINGS: The patient is status post prior sternotomy and coronary artery bypass grafting. There is marked enlargement of the cardiac silhouette. While there are chronic interstitial changes within the lungs there appears to be new interstitial and alveolar prominence particularly at the left lung base. This may reflect inflammatory infiltrate or mild edema. There is also blunting of the left costophrenic angle suggesting a small effusion. There is no pneumothorax. IMPRESSION: 1. Enlarged cardiac silhouette with previous bypass grafting. 2. Chronic pulmonary interstitial changes with new interstitial and alveolar opacities predominantly at the left lung base. There also appears to be a small left effusion. This may reflect a region of inflammatory infiltrate or mild edema. Dictated by: Dictated on workstation # [id number] Dict: 04/18/202026 Trans: 04/18/202105 [facility] [id number] Interpreted by: MICHAEL CARDOZO MD Electronically signed by: MICHAEL CARDOZO MD 04/18/20 3429 A/P-Cardiology Assessment/Admission Diagnosis Pneumonia with sepsis - management per pulmonary services Acute respiratory failure Ac on ch systolic CHF Hyponatremia, hyperkalemia Elevated troponin on hosp of 01/25/20: residual from complicated PCI at [facility] on 01/12/20 during which a high lateral branch was lost (see below) vs new NSTEMI vs type 2 DC due to CHF (managed conservatively per pt and family request) CAD. H/o CABG x 3 around 2004. Last card cath at [facility] on 01/11/20: Mulitvessel CAD, MUELLER patent to LAD but with 90% focal LAD past MUELLER, occluded SVG to LCX, occluded SVG to RCA, LVEF 40-45%. Last PCI on 01/12/20 at [facility]: 2.5x15 Resolute [place] to prox LCX, but complicated by the loss a high lateral branch during PCI Echo of 01/09/20 ([place]): LVEF 45-50%, inf wall hypokinesis, RVSP 31 mmHg, AoV scl w/o stenosis, mild TR Chronic constipation for which she uses laxatives intermittently Mild chronic anemia that is followed by her pcp at [facility] Hyperlipidemia, treated with statins and followed by her pcp Chronic tremors, treated with primidone and followed by her pcp DJD; s/p Right THR in or around 2004; s/p Left hip repair in April 2016 Mild carotid arterial disease on carotid u/s of 05/29/19 Panic disorder Discussion and Recomendations Complex management issue Acute respiratory failure with sepsis Pneumonia - pulmonary services managing Acute on chronic systolic CHF - echo pending (per pulmonary services) - continue diuretics Electrolyte abnormalities - improving Monitor lab closely Advise continuing Plavix d/t recent intervention Further recs will be based on her hospital course We would like to thank medical services for this consult Clinical Quality Measures DVT/VTE Risk/Contraindication: Risk Factor Score Per Nursin RFS Level Per Nursing on Admit: 4+=Very High RED ALVARADO April 19, 2020 13:52
[2020-04-20] VITALS (17 sets, daily range): BP systolic 92–113; BP diastolic 41–66
[2020-04-20] MEDS: VASOPRESSIN INJECTION 20 UNIT in NORMAL SALINE 100 ML IV SCH ×3 (02:17→17:06)
[2020-04-20] MEDS: PIPERACILLIN/TAZOBACTAM (BULK) 4.5 GM in NS (IVPB) 100 ML IV SCH ×3 (03:10→20:10)
[2020-04-20] MEDS: NOREPINEPHRINE 4 MG/250 ML 250 ML IV SCH ×2 (03:10→13:11)
[2020-04-20 03:41] LABS: BASOPHILS % (AUTO) 0 % (0-10); EOSINOPHILS % (AUTO) 0 % (0-10); HEMATOCRIT 32 % (35-52); HEMOGLOBIN 11.3 G/DL (11.5-16.0); LYMPHOCYTES # (AUTO) 0.6 X 10^3 (1.0-4.0); LYMPHOCYTES % (AUTO) 4 % (12-44); MEAN CORPUSCULAR HEMOGLOBIN 30 PG (25-34); MEAN CORPUSCULAR HGB CONC 35 G/DL (32-36); MEAN CORPUSCULAR VOLUME 86 FL (80-99); MEAN PLATELET VOLUME 12.5 FL (7.4-10.4); MONOCYTES # (AUTO) 2.1 X 10^3 (0.0-1.0); MONOCYTES % (AUTO) 16 % (0-12); NEUTROPHILS # (AUTO) 10.5 X 10^3 (1.8-7.8); NEUTROPHILS % (AUTO) 80 % (42-75); PLATELET COUNT 209 10^3/uL (130-400); RED CELL DISTRIBUTION WIDTH 17.4 % (10.0-14.5); WHITE BLOOD COUNT 13.2 10^3/uL (4.3-11.0)
[2020-04-20 03:45] LABS: CHLORIDE 93 MMOL/L (98-107); POTASSIUM 3.4 MMOL/L (3.6-5.0); SODIUM 130 MMOL/L (135-145)
[2020-04-20 03:46] LABS: CALCIUM 8.3 MG/DL (8.5-10.1)
[2020-04-20 03:47] LABS: GLUCOSE 96 MG/DL (70-105)
[2020-04-20 03:49] LABS: CARBON DIOXIDE 23 MMOL/L (21-32)
[2020-04-20 03:51] LABS: CREATININE SERUM 0.74 MG/DL (0.60-1.30); GFR ESTIMATED > 60; PHOSPHORUS 3.4 MG/DL (2.3-4.7)
[2020-04-20 03:52] LABS: BUN/CREATININE RATIO 15
[2020-04-20 03:53] LABS: MAGNESIUM 2.5 MG/DL (1.6-2.4)
[2020-04-20] MEDS: MAGNESIUM 1 GM/100 ML IVPB 100 ML IV SCH (05:11)
[2020-04-20] MEDS: POTASSIUM CL 10MEQ/50ML IVPB 50 ML IV SCH ×9 (05:11→09:38)
[2020-04-20] MEDS: KCL 20 MEQ TAB (K-DUR) PO SCH ×2 (05:11→17:10)
--- NOTE | 2020-04-20 05:56 | Pulmonary Progress Note ---
Subjective Time Seen by a Provider: 05:51 Subjective/Events-last exam No complications noted. Sepsis Event Evaluation Height, Weight, BMI Height: 5'5.00" Weight: 169lbs. 5.0oz. 76.913164je; 29.05 BMI Method:Stated Focused Exam Lactate Level 04/18/20 19:42: Lactic Acid Level 3.03*H 04/18/20 22:16: Lactic Acid Level 1.79 Exam Exam Vital Signs Date Time Temp Pulse Resp B/P (MAP) Pulse Ox O2 Delivery O2 Flow Rate FiO2 04/20/20 04:00 49 10 104/53 (70) 99 Nasal Cannula 2.00 04/20/20 03:15 Nasal Cannula 2.00 04/20/20 03:12 36.1 04/20/20 03:04 58 11 106/58 (74) 97 Nasal Cannula 2.00 04/20/20 02:00 56 11 94/47 (63) 100 Nasal Cannula 2.00 04/20/20 01:00 56 10 94/46 (62) 97 Nasal Cannula 2.00 04/20/20 01:00 56 04/20/20 00:00 56 10 104/66 (79) 97 Nasal Cannula 2.00 04/19/20 23:07 Nasal Cannula 2.00 04/19/20 23:06 36.2 04/19/20 23:00 57 10 106/62 (77) 98 Nasal Cannula 2.00 04/19/20 22:03 36.1 04/19/20 22:00 56 11 96/48 (64) 100 Nasal Cannula 2.00 04/19/20 21:00 59 12 108/48 (68) 100 Nasal Cannula 2.00 04/19/20 20:12 35.8 04/19/20 20:00 Nasal Cannula 2.00 04/19/20 20:00 55 13 103/47 (65) 99 Nasal Cannula 2.00 04/19/20 19:00 57 04/19/20 19:00 57 12 114/50 (71) 99 Nasal Cannula 2.00 04/19/20 18:08 96 Nasal Cannula 2.00 04/19/20 18:00 60 16 101/52 (68) 92 Nasal Cannula 2.00 04/19/20 17:00 53 15 103/55 (71) 96 Nasal Cannula 2.00 04/19/20 16:00 59 19 106/51 (69) 99 Nasal Cannula 2.00 04/19/20 15:50 Nasal Cannula 2.00 04/19/20 15:36 35.9 04/19/20 15:00 52 12 106/57 (73) 98 Nasal Cannula 2.00 04/19/20 14:00 53 11 88/64 (72) 98 Nasal Cannula 2.00 04/19/20 13:00 55 13 96/46 (63) 96 Nasal Cannula 2.00 04/19/20 13:00 55 04/19/20 12:00 Nasal Cannula 2.00 04/19/20 12:00 55 13 101/57 (72) 96 Nasal Cannula 2.00 04/19/20 11:21 35.7 04/19/20 11:00 57 13 99/48 (65) 96 Nasal Cannula 2.00 04/19/20 10:00 69 19 107/63 (78) 95 Nasal Cannula 2.00 04/19/20 09:59 97 Nasal Cannula 2.00 04/19/20 09:00 57 12 97/48 (64) 98 Nasal Cannula 2.00 04/19/20 08:40 96 Nasal Cannula 2.00 04/19/20 08:12 36.0 04/19/20 08:00 55 14 105/58 (74) 98 Nasal Cannula 2.00 04/19/20 07:51 96 Nasal Cannula 2.00 04/19/20 07:00 53 04/19/20 07:00 62 10 104/55 (71) 98 Nasal Cannula 2.00 04/19/20 06:29 Nasal Cannula 2.00 04/19/20 06:00 64 19 110/67 (81) 97 NIV Bilevel 25.00 I & O 04/20/20 07:00 Intake Total 320 ml Output Total 4125 ml Balance -3805 ml Height & Weight Height: 5'5.00" Weight: 169lbs. 5.0oz. 76.533262dp; 29.05 BMI Method:Stated General Appearance: Anxious, Chronically ill, Mild Distress HEENT: PERRL/EOMI Neck: Full Range of Motion, Normal Inspection, Non Tender, Supple Respiratory: Chest Non Tender, No Accessory Muscle Use, No Respiratory D istress, Decreased Breath Sounds Cardiovascular: Regular Rate, Rhythm, No Edema, No Gallop, No JVD, No Murmur, Normal Peripheral Pulses Capillary Refill: Less Than 3 Seconds Extremity: Normal Range of Motion, Non Tender Neurologic/Psychiatric: Alert, Disoriented Results Lab Laboratory Tests 04/18/20 19:42 04/19/20 04:43 04/20/20 02:43 Assessment/Plan Assessment/Plan Acute respiratory failure -Pt is a DNR -COVID- is negative -BiPAP -Duonebs CHFAE -Lasix - decrease to 40 BID and add spironolactone 50mg daily -check echo today Hypokalemia -replace -Add spironolactone Leukocytosis -Check Ponce cultures -Check UA -Continue vanco, zosyn DVT ppx -Start Lovenox RUDY MEYERS DO April 20, 2020 05:56
[2020-04-20] MEDS: NS IV 500 ML 500 ML IV SCH ×2 (06:13→23:57)
[2020-04-20] MEDS: ENOXAPARIN 40 MG/0.4 ML (LOVENOX) SYR SC SCH (06:14)
--- NOTE | 2020-04-20 06:48 | Progress Note - Hospitalist ---
Subjective HPI/CC On Admission Date Seen by Provider: April 20, 2020 Time Seen by Provider: 09:45 CC: SOB with sodium level 110 HPI: This is a 80yoWF known to me of [facility] who presents with acute exacerbation of CHF and superimposed infiltrate on chest X-ray. Pt was placed on IV Lasix, cardiology was consulted along with pulmonology and she has since improved, her sodium level of 110 is now 118, with fluid restriction and supportive care. Palliative care will be consulted because she appears to be even more in-stage then she was three months ago when I sent her to the residential. Subjective/Events-last exam Pt not much different Will try to start a little bit of a diet for her No SOB noted Very debilitated Very poor prognosis overall Moving down to 4th floor today Reviewed labs Conferred with manager reporting of Systems General: Fatigue Pulmonary: Dyspnea Neurological: Confusion Focused Exam Lactate Level 04/18/20 19:42: Lactic Acid Level 3.03*H 04/18/20 22:16: Lactic Acid Level 1.79 Objective Exam Vital Signs Vital Signs Date Time Temp Pulse Resp B/P (MAP) Pulse Ox O2 Delivery O2 Flow Rate FiO2 04/20/20 15:49 37.0 56 18 105/66 (79) 96 Room Air 04/20/20 12:00 2.00 04/19/20 04:00 25 Capillary Refill : Less Than 3 Seconds General Appearance: No Apparent Distress, WD/WN, Chronically ill, Thin Respiratory: Chest Non Tender, Lungs Clear, No Accessory Muscle Use, No Respiratory Distress, Decreased Breath Sounds Cardiovascular: Regular Rate, Rhythm, No Edema, No Gallop, No JVD, No Murmur, Normal Peripheral Pulses Neurologic/Psychiatric: Alert, Depressed Affect, Disoriented Results/Procedures Lab Laboratory Tests 04/20/20 02:43 Patient resulted labs reviewed. Assessment/Plan Assessment and Plan Assess & Plan/Chief Complaint Assessment: Severe AECHF CAD Dementia HTN Hypoxia Plan: ICU Palliative care Poor prognosis DNR Diagnosis/Problems Diagnosis/Problems (1) CHF exacerbation Status: Acute (2) Elevated brain natriuretic peptide (BNP) level Status: Acute (3) Dementia Status: Chronic (4) CAD (coronary artery disease) Status: Chronic (5) Anxiety Status: Chronic Clinical Quality Measures DVT/VTE Risk/Contraindication: Risk Factor Score Per Nursin RFS Level Per Nursing on Admit: 4+=Very High AILEEN MUNIZ DO April 20, 2020 06:48
--- NOTE | 2020-04-20 07:53 | Consultation-Cardiology ---
HPI-Cardiology Cardiology Consultation: Date of Consultation 04/20/20 Time Seen by a Provider: 07:30 Date of Admission 04/19/20 Attending Physician Jazlyn Mcneal DO Admitting Physician [facility] Consulting Physician MARK BANKS MD, FACP, [facility] HPI: Chief Complaint: Reason for consultation: Shortness of breath HPI 80 yo woman admitted to Dr Mcneal in the early hours of 04/19/20 with shortness of breath. The patient herself says that the main reason she came to the hospital was that she was suffering from 'panic.' She has chronic, exertional shortness of breath. Has had some more swelling lately. Denies cp. Denies palp or syncope. Notes gen malaise. Says hurts all over Review of Systems-Cardiology Review of Systems Constitutional: malaise, tiredness; No weight loss, No weight gain Eyes: No vision change Ears/Nose/Throat: No ear discharge, No nasal drainage, No recent hearing loss Respiratory: As described under HPI Cardiovascular: As described under HPI Gastrointestinal: No constipation, No diarrhea, No nausea, No vomiting Genitourinary: No dysuria, No hematuria, No urine frequency changes Musculoskeletal: other (generalized body pain) Skin: No rash on exposed areas, No ulcerations on exposed areas Psychiatric/Neurological: No seizure, No focal weakness, No syncope Hematologic: No bleeding abnormalities All Other Systems Reviewed Negative Unless Noted: Yes ZRA-Tlblwh-Mketgv Hx Patient Social History Marrital Status: single Employed/Student: retired Alcohol Use: Denies Use Recreational Drug Use: No Smoking Status: Never a Smoker Recent Foreign Travel: No Recent Infectious Disease Expo: No Immunizations Up To Date Tetanus Booster (TDap): Unknown Date of Pneumonia Vaccine: April 01, 2009 Date of Influenza Vaccine: Sep 01, 2018 Past Medical History PMH As described under Assessment. Family Medical History Family Medical History: Reported h/o her mother having CAD and her father having high cholesterol. Family History: Cardiovascular disease 19 MOTHER Diabetes mellitus G8 BROTHER Hypercholesterolemia 19 FATHER Allergies and Home Medications Allergies Coded Allergies: clindamycin (Unverified Allergy, Unknown, 02/11/19) morphine (Verified Allergy, Unknown, 02/11/19) can take hydrocodone per pt Home Medications Acetaminophen 325 Mg Tablet, 650 MG PO BID, (Reported) Aspirin 81 Mg Tablet.dr, 81 MG PO HS, (Reported) Atorvastatin Calcium 80 Mg Tablet, 80 MG PO HS, (Reported) Carvedilol 3.125 Mg Tablet, 3.125 MG PO BID, (Reported) Clonazepam 0.5 Mg Tablet, 0.5 MG PO HS PRN for ANXIETY, (Reported) Clopidogrel Bisulfate 75 Mg Tablet, 75 MG PO DAILY, (Reported) Furosemide 40 Mg Tablet, 40 MG PO Q48H, (Reported) Haloperidol Decanoate 100 Mg/1 Ml Vial, 100 MG IM MONTHLY, (Reported) Mag Hydrox/Al Hydrox/Simeth 30 Ml Oral.susp, 30 ML PO Q6H PRN for INDIGESTION, (Reported) Magnesium Hydroxide 400 Mg/5 Ml Oral.susp, 30 ML PO DAILY PRN for CONSTIPATION- 7TH LINE, (Reported) Potassium Chloride 20 Meq Tab.er.prt, 20 MEQ PO BID WITH MEALS, (Reported) Sacubitril/Valsartan 1 Each Tablet, 1 TAB PO BID, (Reported) Sennosides 8.6 Mg Tablet, 8.6 MG PO BID, (Reported) Patient Home Medication List Home Medication List Reviewed: Yes Physical Exam-Cardiology Physical Exam Vital Signs/I&O 04/19/20 04/19/20 04/19/20 04/19/20 20:00 20:00 20:12 21:00 Temp 35.8 Pulse 55 59 Resp 13 12 B/P (MAP) 103/47 (65) 108/48 (68) Pulse Ox 99 100 O2 Delivery Nasal Cannula Nasal Cannula Nasal Cannula O2 Flow Rate 2.00 2.00 2.00 04/19/20 04/19/20 04/19/20 04/19/20 22:00 22:03 23:00 23:06 Temp 36.1 36.2 Pulse 56 57 Resp 11 10 B/P (MAP) 96/48 (64) 106/62 (77) Pulse Ox 100 98 O2 Delivery Nasal Cannula Nasal Cannula O2 Flow Rate 2.00 2.00 04/19/20 04/20/20 04/20/20 04/20/20 23:07 00:00 01:00 01:00 Pulse 56 56 56 Resp 10 10 B/P (MAP) 104/66 (79) 94/46 (62) Pulse Ox 97 97 O2 Delivery Nasal Cannula Nasal Cannula Nasal Cannula O2 Flow Rate 2.00 2.00 2.00 04/20/20 04/20/20 04/20/20 04/20/20 02:00 03:04 03:12 03:15 Temp 36.1 Pulse 56 58 Resp 11 11 B/P (MAP) 94/47 (63) 106/58 (74) Pulse Ox 100 97 O2 Delivery Nasal Cannula Nasal Cannula Nasal Cannula O2 Flow Rate 2.00 2.00 2.00 04/20/20 04/20/20 04/20/20 04/20/20 04:00 05:00 06:01 06:14 Pulse 49 63 55 Resp 10 19 11 B/P (MAP) 104/53 (70) 104/61 (75) 103/53 (70) Pulse Ox 99 92 100 99 O2 Delivery Nasal Cannula Nasal Cannula Nasal Cannula Nasal Cannula O2 Flow Rate 2.00 2.00 2.00 2.00 04/20/20 00:00 Intake Total 120 ml Output Total 2425 ml Balance -2305 ml Capillary Refill : Less Than 3 Seconds Constitutional: AAO x 3, well-developed, well-nourished HEENT: PERRL, EOMI, hearing is well preserved Neck: carotid pulses are 2 + bilaterally, with good upstrokes Respiratory: No accessory muscle use; other (good bilat air entry; diminished at the bases) Cardiovascular: regular rate-rhythm, S1 and S2, systolic murmur (soft TOMAS at card base) Gastrointestinal: No tender; soft; No guarding, No rebound; audible bowel sounds Extremities: No clubbing, No cyanosis, No significant edema Neurologic/Psychiatric: other (moves all limbs equally) Skin: normal color, warm/dry Data Review Labs Laboratory Tests 04/20/20 02:43: White Blood Count 13.2H, Red Blood Count 3.76L, Hemoglobin 11.3L, Hematocrit 32L , Mean Corpuscular Volume 86, Mean Corpuscular Hemoglobin 30, Mean Corpuscular Hemoglobin Concent 35, Red Cell Distribution Width 17.4H, Platelet Count 209, Mean Platelet Volume 12.5H, Neutrophils (%) (Auto) 80H, Lymphocytes (%) (Auto) 4L, Monocytes (%) (Auto) 16H, Eosinophils (%) (Auto) 0, Basophils (%) (Auto) 0, Neutrophils # (Auto) 10.5H, Lymphocytes # (Auto) 0.6L, Monocytes # (Auto) 2.1H, Eosinophils # (Auto) 0.0, Basophils # (Auto) 0.0, Sodium Level 130L, Potassium Level 3.4L, Chloride Level 93L, Carbon Dioxide Level 23, Anion Gap 14, Blood Urea Nitrogen 11, Creatinine 0.74, Estimat Glomerular Filtration Rate > 60, BUN/Creatinine Ratio 15, Glucose Level 96, Calcium Level 8.3L, Phosphorus Level 3.4, Magnesium Level 2.5H Microbiology 04/18/20 MRSA Screen - Final, Complete MRSA not isolated 04/18/20 Blood Culture - Preliminary, Resulted No growth Laboratory Tests 04/18/20 19:42 04/19/20 04:43 04/20/20 02:43 A/P-Cardiology Assessment/Admission Diagnosis Severe hyponatremia at presentation, probably partly due to decomp CHF (hypervolemic hyponatremia) but meds may be contributing (chronic use of laxatives and diuretics). Dr Mcneal managing Multifactorial shortness of breath Acute respiratory failure due to pneumonia with sepsis. Dr Reid and Dr Mcneal managing Ac on ch systolic CHF CAD. H/o CABG x 3 around 2004. Last card cath at [facility] on 01/11/20: Mulitvessel CAD, MUELLER patent to LAD but with 90% focal LAD past MUELLER, occluded SVG to LCX, occluded SVG to RCA, LVEF 40-45%. Last PCI on 01/12/20 at [facility]: 2.5x15 Resolute [place] to prox LCX, but complicated by the loss a high lateral branch during PCI Echo of 01/09/20 ([place]): LVEF 45-50%, inf wall hypokinesis, RVSP 31 mmHg, AoV scl w/o stenosis, mild TR Chronic constipation for which she uses laxatives intermittently Mild chronic anemia that is followed by her pcp at [facility] Hyperlipidemia, treated with statins and followed by her pcp Chronic tremors, treated with primidone and followed by her pcp DJD; s/p Right THR in or around 2004; s/p Left hip repair in April 2016 Mild carotid arterial disease on carotid u/s of 05/29/19 Panic disorder Discussion and Recomendations * This is a complex management issue * Continue diuretics * We recommend investigation and treatement of chronic constipation so that laxatives can be d/c'd * Repeat echo * Continue DAPT due to relatively recent coronary intervention * Monitor labs Clinical Quality Measures DVT/VTE Risk/Contraindication: Risk Factor Score Per Nursin RFS Level Per Nursing on Admit: 4+=Very High MARK BANKS MD FACP FAC [facility]S April 20, 2020 07:52
--- NOTE | 2020-04-20 08:46 | Diagnostic Imaging Report ---
INDICATION: Heart failure. TIME OF EXAM: 3:06 AM. COMPARISON: 04/18/2020. FINDINGS: Changes of median sternotomy and CABG are again noted. An area of infiltrate in the left base persists. The right lung is clear. There appears to be a minimal amount of pleural fluid on the left, unchanged. No pneumothorax is identified. IMPRESSION: Persistent left basilar infiltrate and small left effusion, similar to two days earlier. Dictated by: Dictated on workstation # [id number]
[2020-04-20] MEDS ORDERED: SPIRONOLACTONE 25 MG (ALDACTONE) TAB PO SCH (09:00)
[2020-04-20] MEDS ORDERED: FUROSEMIDE 40 MG/4 ML INJ (LASIX) IV SCH (09:00)
[2020-04-20] MEDS: CLOPIDOGREL 75 MG (PLAVIX) TABLET PO SCH (09:36)
[2020-04-20] MEDS ORDERED: MILK OF MAGNESIA 400 MG/5 ML 30 ML UDC PO PRN (11:30)
[2020-04-20] MEDS ORDERED: clonazePAM 0.5 MG (KlonoPIN) TAB PO PRN (11:30)
[2020-04-20] MEDS ORDERED: ANTACID SUSP 30 ML UDC (MYLANTA) PO PRN (11:30)
[2020-04-20] MEDS ORDERED: HALOPERIDOL DECANOATE 100 MG IM SCH (11:30)
--- NOTE | 2020-04-20 11:40 | Physician Query Clarification ---
PQ-Conflicting Diagnosis Admission/Discharge Admission Date: April 18, 2020 at 21:10 Discharge Date: The medical record reflects the following clinical scenario: History/Risk Factors: Pneumonia Acute respiratory failure Acute on chronic systolic congestive heart failure Clinical Findings: WBC 14.8, band neutrophils 1, T 37, P 58, Resp 18, BP 108/49, Blood culture Probable Coag Neg Staph isolated.Lactic acid 3.03. Treatment: IV Zosyn 4.5gm, IV Vancomycin 750mg. Question: Do you agree with the impression of the Acute Respiratory Failure due to Pneumonia with Sepsis per Dr. Bethea? Please document a response in Progress Note or Discharge Summary. 1. Yes 2. No 3. Other, with explanation of clinical findings 4. Clinically undetermined, no explanation for clinical findings. PHYSICIAN RESPONSE Do you agree w/Consulting Dx?: Yes Please remember a lack of response to the above will prompt a phone page by CDI/Coding staff. In responding to this query, please exercise your independent professional judgment. The purpose of this communication is to more accurately reflect the complexity of your patients condition. The fact that a question is asked does not imply that any particular answer is desired or expected. Thank you for your timely response to this clarification. Requestors name: Mary Melendez [facility] Phone # ext [phone] or [phone] THIS PHYSICIAN QUERY FORM IS A PERMANENT PART OF THE MEDICAL RECORD MARY MELENDEZ April 20, 2020 11:40 AILEEN MUNIZ DO April 20, 2020 20:52
--- NOTE | 2020-04-20 12:19 | NUR ---
PALLIATIVE CARE RN in to see patient. She is laying in bed and alert. Reports having pain in her left arm. She has an IV in her a/c space which fluids are running in and one more near her wrist that is saline locked. I did not see any source of pain associated with either. She is alert to self, location and reason for admission. 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
[2020-04-20] MEDS: FUROSEMIDE 40 MG (LASIX) TAB PO SCH ×2 (13:22→13:26)
--- NOTE | 2020-04-20 13:55 | NUR ---
This nurse transferred patient to room 418 via bed at 1355 by this nurse, Bedside report given to Danni GARCÍA.
[2020-04-20] MEDS: SENNOSIDES 8.6 MG (SENOKOT) TAB PO SCH (20:19)
[2020-04-20] MEDS: ASPIRIN E.C. 81 MG (ECOTRIN) TAB PO SCH (20:19)
--- NOTE | 2020-04-20 20:35 | NUR ---
Dr. Mendes notified to see if BP meds (Coreg 3.125mg & Entresto) should be held with BP of 97/64 and 108/53 with hr of 64. Dr. Mendes instructed to give these meds at HS as scheduled. Will continue to monitor.
[2020-04-20] MEDS: ACETAMINOPHEN 325 MG TABLET PO SCH (20:37)
[2020-04-20] MEDS: SACUBITRIL/VALSARTAN 24/26 MG (ENTRESTO) TABLET PO SCH (20:40)
[2020-04-20] MEDS: CARVEDILOL 3.125 MG (COREG) TABLET PO SCH (20:40)
[2020-04-21] VITALS: BP 86/55
[2020-04-21 04:00] VITALS: BP 91/47
[2020-04-21] MEDS: PIPERACILLIN/TAZOBACTAM (BULK) 4.5 GM in NS (IVPB) 100 ML IV SCH ×3 (04:01→19:56)
--- NOTE | 2020-04-21 05:59 | Pulmonary Progress Note ---
Subjective Time Seen by a Provider: 05:56 Subjective/Events-last exam No complications noted. Sepsis Event Evaluation Height, Weight, BMI Height: '." Weight: 169lbs. 5.0oz. 76.604442oq; 29.05 BMI Method:Stated Focused Exam Lactate Level 04/18/20 19:42: Lactic Acid Level 3.03*H 04/18/20 22:16: Lactic Acid Level 1.79 Exam Exam Vital Signs Date Time Temp Pulse Resp B/P (MAP) Pulse Ox O2 Delivery O2 Flow Rate FiO2 04/21/20 00:00 36.3 60 18 86/55 (65) 93 Room Air 04/20/20 20:37 36.9 64 18 97/64 (75) 93 Room Air 04/20/20 20:15 Room Air 04/20/20 15:49 37.0 56 18 105/66 (79) 96 Room Air 04/20/20 14:00 35.9 55 17 95/66 (76) 93 Room Air 04/20/20 13:00 53 17 100/41 (60) 100 Nasal Cannula 04/20/20 12:04 36.6 04/20/20 12:00 Nasal Cannula 2.00 04/20/20 12:00 59 14 92/46 (61) 99 Nasal Cannula 04/20/20 11:00 57 14 113/49 (70) 100 Nasal Cannula 04/20/20 10:22 Nasal Cannula 2.00 04/20/20 10:00 54 12 112/48 (69) 100 Nasal Cannula 04/20/20 09:00 59 13 99/61 (74) 96 Nasal Cannula 04/20/20 08:00 58 17 102/49 (66) 96 Nasal Cannula 04/20/20 08:00 Nasal Cannula 2.00 04/20/20 07:58 36.7 04/20/20 07:00 58 18 95/54 (68) 96 Nasal Cannula 2.00 04/20/20 06:54 61 04/20/20 06:14 55 11 103/53 (70) 99 Nasal Cannula 2.00 04/20/20 06:01 100 Nasal Cannula 2.00 I & O 04/21/20 07:00 Intake Total 1710 ml Output Total 1425 ml Balance 285 ml Height & Weight Height: 5'." Weight: 169lbs. 5.0oz. 76.322930lm; 29.05 BMI Method:Stated General Appearance: No Apparent Distress, WD/WN, Chronically ill, Thin HEENT: PERRL/EOMI Neck: Full Range of Motion, Normal Inspection, Non Tender, Supple Respiratory: Chest Non Tender, Lungs Clear, No Accessory Muscle Use, No Respira tory Distress, Decreased Breath Sounds Cardiovascular: Regular Rate, Rhythm, No Edema, No Gallop, No JVD, No Murmur, Normal Peripheral Pulses Capillary Refill: Less Than 3 Seconds Extremity: Normal Range of Motion, Non Tender Neurologic/Psychiatric: Alert, Depressed Affect, Disoriented Results Lab Laboratory Tests 04/20/20 02:43 Assessment/Plan Assessment/Plan Acute respiratory failure -Pt is a DNR -COVID- is negative -BiPAP -Duonebs CHFAE -Lasix - 40 BID -spironolactone -Labs pending Leukocytosis -Check Ponce cultures -Check UA -Continue vanco, zosyn DVT ppx -Start Lovenox RUDY MEYERS DO April 21, 2020 05:59
--- NOTE | 2020-04-21 06:10 | Progress Note - Hospitalist ---
Subjective HPI/CC On Admission Date Seen by Provider: April 21, 2020 Time Seen by Provider: 10:00 CC: SOB with sodium level 110 HPI: This is a 80yoWF known to me of [facility] who presents with acute exacerbation of CHF and superimposed infiltrate on chest X-ray. Pt was placed on IV Lasix, cardiology was consulted along with pulmonology and she has since improved, her sodium level of 110 is now 118, with fluid restriction and supportive care. Palliative care will be consulted because she appears to be even more in-stage then she was three months ago when I sent her to the [facility]. Subjective/Events-last exam Pt set for discharge tomorrow back to the [facility] Really overall prognosis meets criteria for hospice Reports she is breathing better and overall more alert Catheter remains Not eating too much either No pain Review of Systems General: Fatigue Neurological: Confusion Focused Exam Lactate Level Objective Exam Vital Signs Vital Signs Date Time Temp Pulse Resp B/P (MAP) Pulse Ox O2 Delivery O2 Flow Rate FiO2 04/22/20 00:00 36.7 71 17 92/57 (69) 96 Room Air 04/20/20 12:00 2.00 04/19/20 04:00 25 Capillary Refill : Less Than 3 Seconds General Appearance: No Apparent Distress, WD/WN, Chronically ill, Thin Respiratory: Chest Non Tender, Lungs Clear, Normal Breath Sounds, No Accessory Muscle Use, No Respiratory Distress Cardiovascular: Regular Rate, Rhythm, No Edema, No Gallop, No JVD, No Murmur, Normal Peripheral Pulses Neurologic/Psychiatric: Alert, Oriented x3, Disoriented Results/Procedures Lab Laboratory Tests 04/21/20 06:03 Patient resulted labs reviewed. Assessment/Plan Assessment and Plan Assess & Plan/Chief Complaint Assessment: Severe AECHF CAD Dementia HTN Hypoxia Plan: DC to [place] Palliative care Poor prognosis DNR Diagnosis/Problems Diagnosis/Problems (1) CHF exacerbation Status: Acute (2) Elevated brain natriuretic peptide (BNP) level Status: Acute (3) Dementia Status: Chronic (4) CAD (coronary artery disease) Status: Chronic (5) Anxiety Status: Chronic Clinical Quality Measures DVT/VTE Risk/Contraindication: Risk Factor Score Per Nursin RFS Level Per Nursing on Admit: 4+=Very High AILEEN MUNIZ DO April 21, 2020 06:10
[2020-04-21] MEDS: ENOXAPARIN 40 MG/0.4 ML (LOVENOX) SYR SC SCH (06:20)
[2020-04-21 06:33] LABS: BASOPHILS % (AUTO) 0 % (0-10); EOSINOPHILS % (AUTO) 0 % (0-10); HEMATOCRIT 28 % (35-52); HEMOGLOBIN 9.4 G/DL (11.5-16.0); LYMPHOCYTES # (AUTO) 0.9 X 10^3 (1.0-4.0); LYMPHOCYTES % (AUTO) 10 % (12-44); MEAN CORPUSCULAR HEMOGLOBIN 30 PG (25-34); MEAN CORPUSCULAR HGB CONC 34 G/DL (32-36); MEAN CORPUSCULAR VOLUME 88 FL (80-99); MEAN PLATELET VOLUME 11.4 FL (7.4-10.4); MONOCYTES # (AUTO) 1.1 X 10^3 (0.0-1.0); MONOCYTES % (AUTO) 12 % (0-12); NEUTROPHILS # (AUTO) 7.2 X 10^3 (1.8-7.8); NEUTROPHILS % (AUTO) 78 % (42-75); PLATELET COUNT 213 10^3/uL (130-400); RED CELL DISTRIBUTION WIDTH 18.1 % (10.0-14.5); WHITE BLOOD COUNT 9.3 10^3/uL (4.3-11.0)
[2020-04-21 07:13] LABS: BUN/CREATININE RATIO 22; CALCIUM 7.8 MG/DL (8.5-10.1); CARBON DIOXIDE 25 MMOL/L (21-32); CHLORIDE 97 MMOL/L (98-107); CREATININE SERUM 0.74 MG/DL (0.60-1.30); GFR ESTIMATED > 60; GLUCOSE 96 MG/DL (70-105); PHOSPHORUS 2.6 MG/DL (2.3-4.7); POTASSIUM 3.6 MMOL/L (3.6-5.0); SODIUM 132 MMOL/L (135-145)
[2020-04-21] MEDS: MAGNESIUM 1 GM/100 ML IVPB 100 ML IV SCH (07:15)
[2020-04-21] MEDS: POTASSIUM CL 10MEQ/50ML IVPB 50 ML IV SCH (07:36)
[2020-04-21] MEDS: KCL 20 MEQ TAB (K-DUR) PO SCH ×2 (07:38→18:43)
[2020-04-21 08:00] VITALS: BP 109/68
--- NOTE | 2020-04-21 09:03 | Progress Note - Cardiology ---
Cardiology SOAP Progress Note Objective: I&O/Vital Signs 04/22/20 04/22/20 04/22/20 04/22/20 00:00 04:00 08:00 08:38 Temp 36.7 36.4 36.3 Pulse 71 61 61 Resp 17 19 20 B/P (MAP) 92/57 (69) 95/57 (70) 101/66 (78) 98/62 (74) Pulse Ox 96 99 96 O2 Delivery Room Air Room Air Room Air 04/22/20 00:00 Intake Total 1430 ml Output Total 875 ml Balance 555 ml Weight (Pounds): 169 Weight (Ounces): 5.0 Weight (Calculated Kilograms): 76.041495 Constitutional: AAO x 3, well-developed, well-nourished Respiratory: No accessory muscle use; other (good bilat air entry; diminished at the bases) Cardiovascular: regular rate-rhythm, S1 and S2, systolic murmur (soft TOMAS at card base) Gastrointestional: No tender; soft; No guarding, No rebound; audible bowel sounds Extremities: No clubbing, No cyanosis, No significant edema Neurologic/Psychiatric: other (moves all limbs equally) Skin: normal color, warm/dry Results/Procedures: Labs Laboratory Tests 04/22/20 05:30: White Blood Count 8.0, Red Blood Count 3.24L, Hemoglobin 9.7L, Hematocrit 29L, Mean Corpuscular Volume 88, Mean Corpuscular Hemoglobin 30, Mean Corpuscular Hemoglobin Concent 34, Red Cell Distribution Width 18.0H, Platelet Count 233, Mean Platelet Volume 11.0H, Neutrophils (%) (Auto) 65, Lymphocytes (%) (Auto) 18, Monocytes (%) (Auto) 14H, Eosinophils (%) (Auto) 2, Basophils (%) (Auto) 0, Neutrophils # (Auto) 5.2, Lymphocytes # (Auto) 1.5, Monocytes # (Auto) 1.1H, Eosinophils # (Auto) 0.2, Basophils # (Auto) 0.0, Sodium Level 132L, Potassium Level 4.0, Chloride Level 99, Carbon Dioxide Level 24, Anion Gap 9, Blood Urea Nitrogen 17, Creatinine 0.69, Estimat Glomerular Filtration Rate > 60, BUN/Creatinine Ratio 25, Glucose Level 93, Calcium Level 7.9L, Phosphorus Level 2.5, Magnesium Level 2.0 Microbiology 04/18/20 MRSA Screen - Final, Complete MRSA not isolated 04/18/20 Blood Culture - Preliminary, Resulted No growth A/P: Assessment: Severe hyponatremia at presentation, probably partly due to decomp CHF (hypervolemic hyponatremia) but meds may be contributing (chronic use of laxatives and diuretics). Dr Mcneal managing - improved Multifactorial shortness of breath - improved Acute respiratory failure due to pneumonia with sepsis. Dr Reid and Dr Mcneal managing Ac on systolic CHF - improving CAD. H/o CABG x 3 around 2004. Last card cath at [facility] on 01/11/20: Mulitvessel CAD, MUELLER patent to LAD but with 90% focal LAD past MUELLER, occluded SVG to LCX, occluded SVG to RCA, LVEF 40-45%. Last PCI on 01/12/[address] [facility]: 2.5x15 Resolute [place] to prox LCX, but complicated by the loss a high lateral branch during PCI Echo of 01/09/20 ([facility]): LVEF 45-50%, inf wall hypokinesis, RVSP 31 mmHg, AoV scl w/o stenosis, mild TR Chronic constipation for which she uses laxatives intermittently Mild chronic anemia that is followed by her pcp at [facility] Hyperlipidemia, treated with statins and followed by her pcp Chronic tremors, treated with primidone and followed by her pcp DJD; s/p Right THR in or around 2004; s/p Left hip repair in April 2016 Mild carotid arterial disease on carotid u/s of 05/29/19 Panic disorder Plan: * This is a complex management issue * Continue diuretics - lasix not given yesterday d/t hypotension - reduce aldactone and give lasix dose today * We recommend investigation and treatement of chronic constipation so that laxatives can be d/c'd * Continue DAPT due to relatively recent coronary intervention * Monitor labs RED ALVARADO April 21, 2020 09:03
[2020-04-21] MEDS ORDERED: FUROSEMIDE 40 MG (LASIX) TAB PO ONE (09:15)
[2020-04-21] MEDS: SENNOSIDES 8.6 MG (SENOKOT) TAB PO SCH ×2 (09:26→20:37)
[2020-04-21] MEDS: CLOPIDOGREL 75 MG (PLAVIX) TABLET PO SCH (09:26)
[2020-04-21] MEDS: CARVEDILOL 3.125 MG (COREG) TABLET PO SCH ×2 (09:26→20:47)
[2020-04-21] MEDS: SACUBITRIL/VALSARTAN 24/26 MG (ENTRESTO) TABLET PO SCH ×2 (09:26→20:47)
[2020-04-21] MEDS: ACETAMINOPHEN 325 MG TABLET PO SCH ×2 (09:27→20:47)
--- NOTE | 2020-04-21 10:11 | Progress Note - Cardiology ---
Cardiology SOAP Progress Note Subjective: States feels unwell: gen malaise, hurts all over, more hurting in both legs, weakness Does not report specific cp Does not report shortness of breath or palp or syncope No n/v/d No focal weakness Objective: I&O/Vital Signs 04/21/20 04/21/20 04/21/20 04/21/20 00:00 04:00 08:00 08:06 Temp 36.3 36.6 36.4 Pulse 60 77 53 Resp 18 19 16 B/P (MAP) 86/55 (65) 91/47 (62) 109/68 (82) Pulse Ox 93 91 93 O2 Delivery Room Air Room Air Room Air Room Air 04/21/20 00:00 Intake Total 1590 ml Output Total 1150 ml Balance 440 ml Weight (Pounds): 169 Weight (Ounces): 5.0 Weight (Calculated Kilograms): 76.757728 Constitutional: AAO x 3, well-developed, well-nourished Respiratory: No accessory muscle use; other (good bilat air entry; diminished at the bases) Cardiovascular: regular rate-rhythm, S1 and S2, systolic murmur (soft TOMAS at card base) Gastrointestional: No tender; soft; No guarding, No rebound; audible bowel sounds Extremities: No clubbing, No cyanosis, No significant edema Neurologic/Psychiatric: other (moves all limbs equally) Skin: normal color, warm/dry Results/Procedures: Labs Laboratory Tests 04/21/20 06:03: White Blood Count 9.3, Red Blood Count 3.17L, Hemoglobin 9.4L, Hematocrit 28L, Mean Corpuscular Volume 88, Mean Corpuscular Hemoglobin 30, Mean Corpuscular Hemoglobin Concent 34, Red Cell Distribution Width 18.1H, Platelet Count 213, Mean Platelet Volume 11.4H, Neutrophils (%) (Auto) 78H, Lymphocytes (%) (Auto) 10L, Monocytes (%) (Auto) 12, Eosinophils (%) (Auto) 0, Basophils (%) (Auto) 0, Neutrophils # (Auto) 7.2, Lymphocytes # (Auto) 0.9L, Monocytes # (Auto) 1.1H, Eosinophils # (Auto) 0.0, Basophils # (Auto) 0.0, Sodium Level 132L, Potassium Level 3.6, Chloride Level 97L, Carbon Dioxide Level 25, Anion Gap 10, Blood Urea Nitrogen 16, Creatinine 0.74, Estimat Glomerular Filtration Rate > 60, BUN/Creatinine Ratio 22, Glucose Level 96, Calcium Level 7.8L, Phosphorus Level 2.6, Magnesium Level 2.0 Microbiology 04/18/20 MRSA Screen - Final, Complete MRSA not isolated 04/18/20 Blood Culture - Preliminary, Resulted No growth Laboratory Tests 04/20/20 02:43 04/21/20 06:03 A/P: Assessment: Severe hyponatremia at presentation, probably partly due to decomp CHF (hypervolemic hyponatremia) but meds may be contributing (chronic use of laxati ves and diuretics). Dr Mcneal managing Multifactorial shortness of breath Acute respiratory failure due to pneumonia with sepsis. Dr Reid and Dr Mcneal managing Ac on systolic and diastolic CHF CAD. H/o CABG x 3 around 2004. Last card cath at [facility] on 01/11/20: Mulitvessel CAD, MUELLER patent to LAD but with 90% focal LAD past MUELLER, occluded SVG to LCX, occluded SVG to RCA, LVEF 40-45%. Last PCI on 01/12/20 at [facility]: 2.5x15 Resolute [place] to prox LCX, but complicated by the loss a high lateral branch during PCI Echo of 04/20/20: LVEF 35-40%, grade 2 diastolic dysfunction, apical hypokinesis, RVSP 41 mmHg, AoV scl w/o stenosis, mild to mod TR, mod MR Chronic constipation for which she uses laxatives intermittently Mild chronic anemia that is followed by her pcp at [facility] Hyperlipidemia, treated with statins and followed by her pcp Chronic tremors, treated with primidone and followed by her pcp DJD; s/p Right THR in or around 2004; s/p Left hip repair in April 2016 Mild carotid arterial disease on carotid u/s of 05/29/19 Panic disorder Plan: * This is a complex management issue due to multiple comorbidities that are outline above * There is objective improvement, but she still feels quite unwell subjectively * Continue diuretics - lasix not given yesterday d/t hypotension - reduce aldactone and give lasix dose today * We recommend investigation and treatement of chronic constipation so that laxatives can be d/c'd * Continue DAPT due to relatively recent coronary intervention * Monitor labs * I discussed her CV issues with her MARK BANKS MD FACP FAC CCDS April 21, 2020 10:11
--- NOTE | 2020-04-21 10:20 | Physical Therapy Evaluation ---
PT Evaluation-General Medical Diagnosis Admission Date April 18, 2020 at 21:10 Medical Diagnosis: acute CHF Onset Date: April 18, 2020 Therapy Diagnosis Therapy Diagnosis: debility/weakness Height/Weight Height (Feet): 5 Height (Inches): 5.00 Weight (Pounds): 169 Weight (Ounces): 5.0 Precautions Precautions/Isolations: Airborne Isolation, Fall Prevention, Standard Precautions, Pressure Ulcer Referral Physician: Fredis Reason for Referral: Evaluation/Treatment Medical History Pertinent Medical History: Atrial Fib, CABG, CAD, Dementia, HTN Current History EMS from [place] with SAO2 79% Reviewed History: Yes Social History Home: Jail Prior Prior Level of Function SCALE: Activities may be completed with or without assistive devices. 9-Xbgofmakvz-czpapuh completes the activity by him/herself with no assistance from a helper. 5-Set-up or Clean-up Assistance-helper sets up or cleans up; patient completes activity. [place] assists only prior to or following the activity. 4-Supervision or Touching Assistance-helper provides verbal cues and/or touching/steadying and/or contact guard assistance as patient completes activity. Assistance may be provided throughout the activity or intermittently. 3-Partial/Moderate Assistance-helper does LESS THAN HALF the effort. [place] lifts, holds or supports trunk or limbs, but provides less than half the effort. 2-Substantial/Maximal Assistance-helper does MORE THAN HALF the effort. [place] lifts or holds trunk or limbs and provides more than half the effort. 4-Mmwuinamv-ghasex does ALL the effort. Patient does none of the effort to complete the activity. Or, the assistance of 2 or more helpers is required for the patient to complete the activity. If activity was not attempted, code reason: 7-Patient Refused. 9-Not Applicable-not attempted and the patient did not perform the activity before the current illness, exacerbation or injury. 10-Not Attempted due to Environmental Limitations-(lack of equipment, weather restraints, etc.). 88-Not Attempted due to Medical Conditions or Safety Concerns. Bed Mobility: 2 Transfers (B,C,W/C): 2 Gait: 9 Indoor Mobility (Ambulation): Not Applicalbe Stairs: Not Applicalbe Prior Devices Use: Manual wheelchair PT Evaluation-Current Subjective Patient reports she does not ambulate and hasn't for several months. Agrees to OOB and up to chair. Nursing in to assist with shower. Pain Numeric Pain Scale: 0-No Pain Location: No Pain Reported Objective Patient Orientation: Confused ROM/Strength ROM Lower Extremities noted left LE IR in supine and sit/right LE WFL Strength Lower Extremities 3-/5 grossly bilateral LE Integumentary/Posture Integumentary refer to nursing notes Bladder Incontinence: Ansari Cath Posture slightly kyphotic Neuromuscular (Tone, Coordination, Reflexes) diminished coordination due to deconditioned Sensory Vision: Functional Hearing: Functional Sensation Right Lower Extremit: Impaired Sensation Left Lower Extremity: Impaired Transfers Roll Left to Right (QC): 2 Lying to Sitting/Side of Bed(Q: 2 Sit to Stand (QC): 2 Chair/Mtf-ta-Vuhge Xfer(QC): 2 Gait Does the Patient Walk?: No and Walking Goal NOT indicated Balance Sitting Static: Fair Sitting Dynamic: Fair Standing Static: Fair Standing Dynamic: Fair Assessment/Needs 80 y.o. female, will be seen short term by skilled PT to address functional strength and mobility. [place] and has been non ambulatory, per patient, for several months. Rehab Potential: Guarded PT Sample Prep Technician Goals Long-Term Goals PT Long-Term Goals Time Frame: April 29, 2020 Roll Left & Right (QC): 3 Sit to Lying (QC): 3 Lying-Sitting on Side/Bed(QC): 3 Sit to Stand (QC): 3 Chair/Xdj-nu-Hqhva Xfer(QC): 3 Toilet Transfer (QC): 3 Does the Patient Walk: No and Walking Goal NOT indicated PT Plan Problem List Problem List: Activity Tolerance, Functional Strength, Safety, Balance, Transfer, Bed Mobility Treatment/Plan Treatment Plan: Continue Plan of Care Treatment Plan: Bed Mobility, Education, Functional Activity Claudette, Functional Strength, Safety, Therapeutic Exercise, Transfers Treatment Duration: April 29, 2020 Frequency: 6 times per week Estimated Hrs Per Day: .25 hour per day Patient and/or Family Agrees t: Yes Time/GCodes Time In: 855 Time Out: 908 Total Billed Treatment Time: 13 Total Billed Treatment 1 visit EVMod 13 min DENNY SQUIRES PT April 21, 2020 10:20
--- NOTE | 2020-04-21 10:21 | Occupational Therapy Eval ---
OT Evaluation-General/PLF Medical Diagnosis Admission Date April 18, 2020 at 21:10 Medical Diagnosis: CHF exacerbation Onset Date: April 18, 2020 Therapy Diagnosis Therapy Diagnosis: impaired ADLs Height/Weight Height (Feet): 5 Height (Inches): 5.00 Weight (Pounds): 169 Weight (Ounces): 5.0 Precautions Precautions/Isolations: Airborne Isolation, Fall Prevention, Standard Precautions, Pressure Ulcer Referral Physician: Fredis Referral Reason: Evaluation/Treatment Medical History Pertinent Medical History: Atrial Fib, CABG, CAD, Dementia, HTN Additional Medical History anxiety/depression, L hip repair April 2016, R THR ~2004 Current History Per H&P: "This is a 80yoWF known to me of [facility] who presents with acute exacerbation of CHF and superimposed infiltrate on chest X-ray. Pt was placed on IV Lasix, cardiology was consulted along with pulmonology and she has since improved, her sodium level of 110 is now 118, with fluid restriction and supportive care. Palliative care will be consulted because she appears to be even more in-stage then she was three months ago when I sent her to the halfway." Reviewed History: Yes Social History Home: Long Term ADL-Prior Level of Function SCALE: Activities may be completed with or without assistive devices. 8-Cunvbifkqr-szftczg completes the activity by him/herself with no assistance from a helper. 5-Set-up or Clean-up Assistance-helper sets up or cleans up; patient completes a ctivity. [place] assists only prior to or following the activity. 4-Supervision or Touching Assistance-helper provides verbal cues and/or touching/steadying and/or contact guard assistance as patient completes activity. Assistance may be provided throughout the activity or intermittently. 3-Partial/Moderate Assistance-helper does LESS THAN HALF the effort. [place] lifts, holds or supports trunk or limbs, but provides less than half the effort. 2-Substantial/Maximal Assistance-helper does MORE THAN HALF the effort. [place] lifts or holds trunk or limbs and provides more than half the effort. 4-Ndpntugce-pxsrvg does ALL the effort. Patient does none of the effort to complete the activity. Or, the assistance of 2 or more helpers is required for the patient to complete the activity. If activity was not attempted, code reason: 7-Patient Refused. 9-Not Applicable-not attempted and the patient did not perform the activity before the current illness, exacerbation or injury. 10-Not Attempted due to Environmental Limitations-(lack of equipment, weather restraints, etc.). 88-Not Attempted due to Medical Conditions or Safety Concerns. ADL PLOF Comments Pt reports she lives at an [facility] in [place] where she gets assistance with all ADLs including dressing, cleaning, showering, and she has meals provided to her. She has a w/c for functional mobility. Self Care: Needed Some Help Functional Cognition: Needed Some Help DME/Equipment Comments w/c OT Current Status Subjective Pt seated in recliner, initially declined OT but with mod encouragement agreed. She reported some pain in her L arm when OT attempted PROM but she was unable to provide pain rating. Mental Status/Objective Patient Orientation: Person, Place, Time Attachments: Ansari Catheter Current Glasses/Contacts: Yes Hearing Aids: No Dentures/Partials: No Hand Dominance: Right Upper Extremity ROM RUE WFL. Decreased LUE ROM. Pt unable to actively move L arm, when OT attempted to perform PROM pt appeared very guarded and reported pain. Pt did not allow OT to complete PROM on LUE Upper Extremity Coordination decreased RUE thumb opposition to each finger. Pt unable to move LUE Upper Extremity Sensation pt reports tingling/numbness in BUE hands and BLE feet. Upper Extremity Strength decreased ADL-Treatment Shower/Bathe Self (QC): 2 (Pt reports she attempted to help with the shower but was unable wash much requiring assistance. ) Other Treatments Pt seated in recliner stating she just took a shower and got dressed. She reports she required assistance with her shower, get dressed, and brushing her hair today. Pt also reports she has assistance with all ADLs at [facility] including bathing, dressing, cleaning, and she has meals provided to her. OT educated pt on purpose and benefits of OT, she verbalized understanding but declined further tx. OT encouraged pt to brush her teeth but she declined. Pt reports she is at her baseline with all ADLs, thus skilled OT is not indicated at this time. Post OT session, pt seated in recliner, call light in reach and all needs met. Education OT Patient Education: Correct positioning, Energy conservation, Progress toward Goal/Update tx plan, Purpose of tx/functional activities Teaching Recipient: Patient Teaching Methods: Discussion Response to Teaching: Verbalize Understanding OT Mcfp Goals Mcfp Goals 1=Demonstrate adherence to instructed precautions during ADL tasks. 2=Patient will verbalize/demonstrate understanding of assistive devices/modifications for ADL. 3=Patient will improve strength/tolerance for activity to enable patient to perform ADL's. OT Education/Plan Problem List/Assessment Assessment: No Skilled OT Needs ID'd Per pt report, she is currently at her baseline and receives assistance with all ADLS at [facility]. Based on current functional level, pt is at her baseline and no skilled OT services are indicated at this time. Discharge Recommendations Plan/Recommendations: Discharge/Goals Met Therapy Discharge Recommendati: Other, See Comments (custodial) Treatment Plan/Plan of Care Patient would benefit from OT for education, treatment and training to promote independence in ADL's, mobility, safety and/or upper extremity function for ADL's. Plan of Care: ADL Retraining Treatment Duration: April 21, 2020 Frequency: 1 time per week (eval only) Time/GCodes Start Time: 09:35 Stop Time: 09:43 Total Time Billed (hr/min): 8 Billed Treatment Time 1DONY ADDISON OT April 21, 2020 10:21
--- NOTE | 2020-04-21 10:37 | NUR ---
PALLIATIVE CARE RN in to see patient. She is sitting in the chair, appears to have just had her bath and reports not doing well. When I inquired why she said "they made me get up". She reports that she was now very tired. She relayed the same to Dr. Mcneal who came in as we were talking. Plan likely is to return to the SNF-MLF. Will discuss with the daughter about hospice at discharge vs SKILLED. kori for discharge tomorrow back.
--- NOTE | 2020-04-21 11:27 | NUR ---
PALLIATIVE CARE RN has spoken to patients son and daughter and to her DPOA/brother Dallas. I updated them on POC for discharge tomorrow back to [facility] and discussed the options of SKILLED vs Hospice. Educated them on the differences in each. Dallas is inclined to start off with skilld to see where it goes. He is agreeable to discharge tomorrow skilled. DISCHARGE PLAN: Discharge tomorrow back to [facility] skilled. Notified Dr. Mcneal and then Halle with [facility].
[2020-04-21 12:00] VITALS: BP 95/65
[2020-04-21 15:55] VITALS: BP 92/50
[2020-04-21] MEDS: NS IV 500 ML 500 ML IV SCH (17:49)
[2020-04-21 19:45] VITALS: BP 106/62
[2020-04-21] MEDS: ASPIRIN E.C. 81 MG (ECOTRIN) TAB PO SCH (20:47)
[2020-04-22] VITALS: BP 92/57
[2020-04-22 04:00] VITALS: BP 95/57
[2020-04-22] MEDS: PIPERACILLIN/TAZOBACTAM (BULK) 4.5 GM in NS (IVPB) 100 ML IV SCH ×2 (04:11→11:54)
[2020-04-22 05:51] LABS: BASOPHILS % (AUTO) 0 % (0-10); EOSINOPHILS # (AUTO) 0.2 10^3/uL (0.0-0.3); EOSINOPHILS % (AUTO) 2 % (0-10); HEMATOCRIT 29 % (35-52); HEMOGLOBIN 9.7 G/DL (11.5-16.0); LYMPHOCYTES # (AUTO) 1.5 X 10^3 (1.0-4.0); LYMPHOCYTES % (AUTO) 18 % (12-44); MEAN CORPUSCULAR HEMOGLOBIN 30 PG (25-34); MEAN CORPUSCULAR HGB CONC 34 G/DL (32-36); MEAN CORPUSCULAR VOLUME 88 FL (80-99); MONOCYTES # (AUTO) 1.1 X 10^3 (0.0-1.0); MONOCYTES % (AUTO) 14 % (0-12); NEUTROPHILS # (AUTO) 5.2 X 10^3 (1.8-7.8); NEUTROPHILS % (AUTO) 65 % (42-75); PLATELET COUNT 233 10^3/uL (130-400)
[2020-04-22] MEDS ORDERED: CEFD300C3 PO (06:03)
[2020-04-22] MEDS ORDERED: CLON0.5T PO (06:03)
[2020-04-22] MEDS ORDERED: SPIR25TA5 PO (06:03)
--- NOTE | 2020-04-22 06:04 | Discharge Inst-Skilled Nursing ---
Discharge Inst-Skilled NF Reconcile Patient Problems Problems Reviewed?: Yes Chief Complaint CC: SOB with sodium level 110 HPI: This is a 80yoWF known to me of [facility] who presents with acute exacerbation of CHF and superimposed infiltrate on chest X-ray. Pt was placed on IV Lasix, cardiology was consulted along with pulmonology and she has since improved, her sodium level of 110 is now 118, with fluid restriction and supportive care. Palliative care will be consulted because she appears to be even more in-stage then she was three months ago when I sent her to the residential. Patient Instructions Patient Problems: s/p hyponatremia CHF PNA Dementia Goal: Clincal stability Consult/Follow Up/Orders Follow Up Appt.: [facility] rounds Skilled NF Admit to: Certification (SNF) I certify that SNF services are required to be given on an inpatient basis because of the above named patient's need for chcf care on a continuing basis for the conditions(s) for which he/she was receiving inpatient hospital services prior to his/her transfer to the SNF. Group Home Facility Order: Nursing Services, Building Official-Evaluate & Treat, Physical Therapy-Evaluate & Treat, Speech Language-Evaluate & Treat Oxygen Delivery Method: Room Air Discharge Diet: No Restrictions Resuscitation Status: Do Not Resuscitate New & Resume Previous Orders New Medications: Cefdinir (Cefdinir) 300 Mg Capsule 300 MG PO BID, #6 CAP Spironolactone (Spironolactone) 25 Mg Tablet 25 MG PO DAILY for 30 Days, TAB Continued Medications: Acetaminophen (Acetaminophen) 325 Mg Tablet 650 MG PO BID, TAB Aspirin (Aspirin EC) 81 Mg Tablet.dr 81 MG PO HS, TAB Atorvastatin Calcium (Atorvastatin Calcium) 80 Mg Tablet 80 MG PO HS, TAB Carvedilol (Coreg) 3.125 Mg Tablet 3.125 MG PO BID, TAB Clonazepam (Klonopin) 0.5 Mg Tablet 0.5 MG PO HS PRN for ANXIETY, #10 TAB (This prescription has been renewed) Clopidogrel Bisulfate (Plavix) 75 Mg Tablet 75 MG PO DAILY, TAB Furosemide (Furosemide) 40 Mg Tablet 40 MG PO Q48H, TAB Haloperidol Decanoate (Haloperidol Decanoate) 100 Mg/1 Ml Vial 100 MG IM MONTHLY, VIAL Mag Hydrox/Al Hydrox/Simeth (Mylanta Suspension) 30 Ml Oral.susp 30 ML PO Q6H PRN for INDIGESTION, ML Magnesium Hydroxide (Milk of Magnesia) 400 Mg/5 Ml Oral.susp 30 ML PO DAILY PRN for CONSTIPATION-7TH LINE, ML Potassium Chloride (Potassium Chloride) 20 Meq Tab.er.prt 20 MEQ PO BID WITH MEALS, TAB Sacubitril/Valsartan (Entresto 24 mg-26 mg Tablet) 1 Each Tablet 1 TAB PO BID, TAB Sennosides (Senna) 8.6 Mg Tablet 8.6 MG PO BID, TAB Jazlyn Mcneal April 22, 2020 06:03 JAZLYN MCNEAL DO April 22, 2020 06:04
--- NOTE | 2020-04-22 06:05 | Discharge Summary ---
Discharge Summary Hospital Course Was the Problem List Reviewed?: Yes Problems/Dx: (1) CHF exacerbation Status: Acute Qualifiers: Qualified Codes: I50.43 - Acute on chronic combined systolic (congestive) and diastolic (congestive) heart failure (2) Elevated brain natriuretic peptide (BNP) level Status: Acute (3) Dementia Status: Chronic (4) CAD (coronary artery disease) Status: Chronic (5) Anxiety Status: Chronic Hospital Course Date of Admission: April 18, 2020 at 21:10 Admission Diagnosis : Family Physician/Provider: [facility] Date of Discharge: 04/22/20 Discharge Diagnosis: CHF Hyponatremia CAD Dementia Chronic debility Hospital Course: patient had an uneventful course after admitted to ICU for severe CHF and hyponatremia of 110 Pulmo and Cards consulted and patient became stable and was arranged for DC back to DC where she had resided before. Skilled care arranged and if declines needs Hospice. Overall patient recovered well with resolution of hyponatremia and her confusion returned to baseline. No falls or decompensation occurred during stay and palliative care nurse arranged meeting on poor prognosis and patient was deemed stable for DC. Labs and Pending Lab Test: Laboratory Tests 04/22/20 05:30: White Blood Count 8.0, Red Blood Count 3.24L, Hemoglobin 9.7L, Hematocrit 29L, Mean Corpuscular Volume 88, Mean Corpuscular Hemoglobin 30, Mean Corpuscular Hemoglobin Concent 34, Red Cell Distribution Width 18.0H, Platelet Count 233, Mean Platelet Volume 11.0H, Neutrophils (%) (Auto) 65, Lymphocytes (%) (Auto) 18, Monocytes (%) (Auto) 14H, Eosinophils (%) (Auto) 2, Basophils (%) (Auto) 0, Neutrophils # (Auto) 5.2, Lymphocytes # (Auto) 1.5, Monocytes # (Auto) 1.1H, Eosinophils # (Auto) 0.2, Basophils # (Auto) 0.0, Sodium Level [Pending], Potassium Level [Pending], Chloride Level [Pending], Carbon Dioxide Level [Pending], Anion Gap [Pending], Blood Urea Nitrogen [Pending], Creatinine [Pending], BUN/Creatinine Ratio [Pending], Glucose Level [Pending], Calcium Level [Pending], Phosphorus Level [Pending], Magnesium Level [Pending] Microbiology 04/18/20 MRSA Screen - Final, Complete MRSA not isolated 04/18/20 Blood Culture - Preliminary, Resulted No growth Home Meds Active Cefdinir 300 Mg Capsule 300 Mg PO BID Spironolactone 25 Mg Tablet 25 Mg PO DAILY 30 Days Klonopin (Clonazepam) 0.5 Mg Tablet 0.5 Mg PO HS PRN Reported Senna (Sennosides) 8.6 Mg Tablet 8.6 Mg PO BID Furosemide 40 Mg Tablet 40 Mg PO Q48H Entresto 24 mg-26 mg Tablet (Sacubitril/Valsartan) 1 Each Tablet 1 Tab PO BID Potassium Chloride 20 Meq Tab.er.prt 20 Meq PO BID WITH MEALS Mylanta Suspension (Al Hydrox/Mg Hydrox/Simethicone) 30 Ml Oral.susp 30 Ml PO Q6H PRN Haloperidol Decanoate 100 Mg/1 Ml Vial 100 Mg IM MONTHLY Plavix (Clopidogrel Bisulfate) 75 Mg Tablet 75 Mg PO DAILY Coreg (Carvedilol) 3.125 Mg Tablet 3.125 Mg PO BID Atorvastatin Calcium 80 Mg Tablet 80 Mg PO HS Acetaminophen 325 Mg Tablet 650 Mg PO BID Milk of Magnesia (Magnesium Hydroxide) 400 Mg/5 Ml Oral.susp 30 Ml PO DAILY PRN Aspirin EC (Aspirin) 81 Mg Tablet.dr 81 Mg PO HS Assessment/Pt Instructions [facility] DC rounds in 1 week Discharge Planning: >30 minutes discharge planning Discharge Instructions Discharge Diet: No Restrictions Discharge Physical Examination Vital Signs Vital Signs Date Time Temp Pulse Resp B/P (MAP) Pulse Ox O2 Delivery O2 Flow Rate FiO2 04/22/20 00:00 36.7 71 17 92/57 (69) 96 Room Air 04/20/20 12:00 2.00 04/19/20 04:00 25 General Appearance: No Apparent Distress, WD/WN, Chronically ill Allergies: Coded Allergies: clindamycin (Unverified Allergy, Unknown, 02/11/19) morphine (Verified Allergy, Unknown, 02/11/19) can take hydrocodone per pt Discharge Summary Date of Admission April 18, 2020 at 21:10 Date of Discharge Discharge Date: April 22, 2020 Admission Diagnosis Assessment: Severe AECHF CAD Dementia HTN Hypoxia Plan: ICU Palliative care Poor prognosis DNR Discharge Diagnosis Assessment: Severe AECHF CAD Dementia HTN Hypoxia Plan: DC to DC Palliative care Poor prognosis DNR (1) CHF exacerbation Status: Acute Qualifiers: Qualified Codes: I50.43 - Acute on chronic combined systolic (congestive) and diastolic (congestive) heart failure (2) Elevated brain natriuretic peptide (BNP) level Status: Acute (3) Dementia Status: Chronic (4) CAD (coronary artery disease) Status: Chronic (5) Anxiety Status: Chronic Clinical Quality Measures DVT/VTE Risk/Contraindication: Risk Factor Score Per Nursin RFS Level Per Nursing on Admit: 4+=Very High AILEEN MUNIZ DO April 22, 2020 06:05
[2020-04-22 06:20] LABS: CHLORIDE 99 MMOL/L (98-107); SODIUM 132 MMOL/L (135-145)
[2020-04-22 06:21] LABS: CALCIUM 7.9 MG/DL (8.5-10.1)
[2020-04-22 06:22] LABS: GLUCOSE 93 MG/DL (70-105)
[2020-04-22 06:23] LABS: CARBON DIOXIDE 24 MMOL/L (21-32)
[2020-04-22 06:26] LABS: CREATININE SERUM 0.69 MG/DL (0.60-1.30); GFR ESTIMATED > 60; PHOSPHORUS 2.5 MG/DL (2.3-4.7)
[2020-04-22 06:27] LABS: BUN/CREATININE RATIO 25
[2020-04-22] MEDS: POTASSIUM CL 10MEQ/50ML IVPB 50 ML IV SCH (06:27)
[2020-04-22] MEDS: MAGNESIUM 1 GM/100 ML IVPB 100 ML IV SCH (06:42)
[2020-04-22] MEDS: NS IV 500 ML 500 ML IV SCH (06:43)
[2020-04-22] MEDS: KCL 20 MEQ TAB (K-DUR) PO SCH (06:46)
[2020-04-22] MEDS: ENOXAPARIN 40 MG/0.4 ML (LOVENOX) SYR SC SCH (06:46)
--- NOTE | 2020-04-22 07:50 | NUR ---
pt denies any problems breathing. pt appears in no respiratory distress. Addendum: 04/22/20 at 0751 by DRAGAN HARO RT Amended: Links added.
[2020-04-22 08:00] VITALS: BP 101/66
[2020-04-22 08:38] VITALS: BP 98/62
[2020-04-22] MEDS ORDERED: SPIRONOLACTONE 25 MG (ALDACTONE) TAB PO SCH (09:00)
[2020-04-22] MEDS: ACETAMINOPHEN 325 MG TABLET PO SCH (09:05)
[2020-04-22] MEDS: SENNOSIDES 8.6 MG (SENOKOT) TAB PO SCH (09:05)
[2020-04-22] MEDS: CLOPIDOGREL 75 MG (PLAVIX) TABLET PO SCH (09:06)
[2020-04-22] MEDS: SACUBITRIL/VALSARTAN 24/26 MG (ENTRESTO) TABLET PO SCH (09:06)
[2020-04-22] MEDS: CARVEDILOL 3.125 MG (COREG) TABLET PO SCH (09:06)
--- NOTE | 2020-04-22 09:48 | Progress Note - Cardiology ---
Cardiology SOAP Progress Note Subjective: No new c/o. Discharging back to LTC facility Objective: I&O/Vital Signs Weight (Pounds): 169 Weight (Ounces): 5.0 Weight (Calculated Kilograms): 76.843373 Constitutional: AAO x 3, well-developed, well-nourished Respiratory: No accessory muscle use; other (good bilat air entry; diminished at the bases) Cardiovascular: regular rate-rhythm, S1 and S2, systolic murmur (soft TOMAS at card base) Gastrointestional: No tender; soft; No guarding, No rebound; audible bowel sounds Extremities: No clubbing, No cyanosis, No significant edema Neurologic/Psychiatric: other (moves all limbs equally) Skin: normal color, warm/dry Results/Procedures: Labs Microbiology 04/18/20 MRSA Screen - Final, Complete MRSA not isolated 04/18/20 Blood Culture - Final, Complete No growth A/P: Assessment: Severe hyponatremia at presentation, probably partly due to decomp CHF (hypervolemic hyponatremia) but meds may be contributing (chronic use of laxatives and diuretics). Dr Mcneal managing Multifactorial shortness of breath Acute respiratory failure due to pneumonia with sepsis. Dr Reid and Dr Mcneal managing Ac on ch systolic and diastolic CHF CAD. H/o CABG x 3 around 2004. Last card cath at [facility] on 01/11: Mulitvessel CAD, MUELLER patent to LAD but with 90% focal LAD past MUELLER, occluded SVG to LCX, occluded SVG to RCA, LVEF 40-45%. Last PCI on 01/12/20 at [facility]: 2.5x15 Resolute [place] to prox LCX, but complicated by the loss a high lateral branch during PCI Echo of 04/20/20: LVEF 35-40%, grade 2 diastolic dysfunction, apical hypokinesis, RVSP 41 mmHg, AoV scl w/o stenosis, mild to mod TR, mod MR Chronic constipation for which she uses laxatives intermittently Mild chronic anemia that is followed by her pcp at [facility] Hyperlipidemia, treated with statins and followed by her pcp Chronic tremors, treated with primidone and followed by her pcp DJD; s/p Right THR in or around 2004; s/p Left hip repair in April 2016 Mild carotid arterial disease on carotid u/s of 05/29/19 Panic disorder Plan: * Complex management * Overall seems improved * Discharging back to LTC facility today per medical services * Advise out pt f/u * Continue current medication regimen RED ALVARADO April 22, 2020 09:48
--- NOTE | 2020-04-22 11:39 | Physical Therapy Daily Note ---
PT Daily Note-Current Subjective Pt up in chair, says she is "not good" upon arrival. Nurse presents and says she is getting her pain med as requested. Pt rates pain 10/10 "all over". Pt reluctantly agrees to therex in chair. Pt states "You are putting me to sleep" during AAROM ther ex. Mental Status Patient Orientation: Person, Place, Situation Transfers SCALE: Activities may be completed with or without assistive devices. 2-Leikptzpwj-nahnsmh completes the activity by him/herself with no assistance from a helper. 5-Set-up or Clean-up Assistance-helper sets up or cleans up; patient completes activity. [place] assists only prior to or following the activity. 4-Supervision or Touching Assistance-helper provides verbal cues and/or touching/steadying and/or contact guard assistance as patient completes activity. Assistance may be provided throughout the activity or intermittently. 3-Partial/Moderate Assistance-helper does LESS THAN HALF the effort. [place] lifts, holds or supports trunk or limbs, but provides less than half the effort. 2-Substantial/Maximal Assistance-helper does MORE THAN HALF the effort. [place] lifts or holds trunk or limbs and provides more than half the effort. 7-Hrrnxfwwf-dprgtr does ALL the effort. Patient does none of the effort to complete the activity. Or, the assistance of 2 or more helpers is required for the patient to complete the activity. If activity was not attempted, code reason: 7-Patient Refused. 9-Not Applicable-not attempted and the patient did not perform the activity before the current illness, exacerbation or injury. 10-Not Attempted due to Environmental Limitations-(lack of equipment, weather restraints, etc.). 88-Not Attempted due to Medical Conditions or Safety Concerns. Exercises Supine Ex: Ankle pumps, Quad Set, Heel Slides, Hip abd/add Supine Reps: 20 Treatments Pt unable to follow instruction, most ther ex AAROM. Pt restless legs and moving legs throughout. Pt resting in recliner post therapy with Dr Lake joel present. Assessment Current Status: Fair Progress Pt able to tolerated minimal ther ex. Pt did appear to relax during AAROM. Pt resting post therapy session, all needs met. PT Weatherization Director Goals Weatherization Director Goals PT Halfway Goals Time Frame: April 29, 2020 Roll Left & Right (QC): 3 Sit to Lying (QC): 3 Lying-Sitting on Side/Bed(QC): 3 Sit to Stand (QC): 3 Chair/Pdk-fh-Noqfu Xfer(QC): 3 Toilet Transfer (QC): 3 Does the Patient Walk: No and Walking Goal NOT indicated PT Plan Treatment/Plan Treatment Plan: Continue Plan of Care Treatment Plan: Bed Mobility, Education, Functional Activity Claudette, Functional Strength, Safety, Therapeutic Exercise, Transfers Treatment Duration: April 29, 2020 Frequency: 6 times per week Estimated Hrs Per Day: .25 hour per day Patient and/or Family Agrees t: Yes Time/GCodes Time In: 915 Time Out: 925 Total Billed Treatment Time: 10 Total Billed Treatment 1, ther ex Festus' NORA RUSSELL CPTA April 22, 2020 11:39
[2020-04-22] MEDS: FUROSEMIDE 40 MG (LASIX) TAB PO SCH (11:54)
--- NOTE | 2020-04-22 12:09 | NUR ---
[facility] AT [facility] NOTIFIED OF DISCHARGE AND REPORT OF HOSPITAL STAY. THIS RN ALSO ASKED THAT [facility] PLEASE HAVE TRANSPORTATION BRING HER CLOTHES TO WEAR HOME. RN GAVE [employer] PHONE NUMBER TO [facility] IN CASE SHE NEEDED MORE INFORMATION AND FOR WHEN THEN TRANSPORATION GOT HERE. PT SIGNED INTIALS ON D/C SHEET AND PUT IN PTS CHART.
--- NOTE | 2020-04-22 12:45 | NUR ---
PT DISCHARGED FROM FACILITY. IV WAS DISCONTINUED AND SHE WENT DOWN TO EXIT IN W/C WITH PCT. PT LEFT WITH [facility] WITH HER BELONGINGS AND D/C INSTRUCTIONS/INFO. SHE DID SIGN HER D/C PAPERWORK PRIOR TO LEAVING ROOM.
--- NOTE | 2020-04-22 12:51 | Progress Note - Cardiology ---
Cardiology SOAP Progress Note Subjective: Gen malaise, but unable to specify No cp or palp or syncope Shortness of breath improved Swelling improved Gen weakness Objective: I&O/Vital Signs 04/22/20 04/22/20 04/22/20 04/22/20 04:00 08:00 08:00 08:38 Temp 36.4 36.3 Pulse 61 61 Resp 19 20 B/P (MAP) 95/57 (70) 101/66 (78) 98/62 (74) Pulse Ox 99 96 O2 Delivery Room Air Room Air Room Air 04/22/20 11:53 Pulse Ox 92 O2 Delivery Room Air 04/22/20 00:00 Intake Total 1430 ml Output Total 875 ml Balance 555 ml Weight (Pounds): 169 Weight (Ounces): 5.0 Weight (Calculated Kilograms): 76.831776 Constitutional: AAO x 3, well-developed, well-nourished Respiratory: No accessory muscle use; other (good bilat air entry; diminished at the bases) Cardiovascular: regular rate-rhythm, S1 and S2, systolic murmur (soft TOMAS at card base) Gastrointestional: No tender; soft; No guarding, No rebound; audible bowel sounds Extremities: No clubbing, No cyanosis, No significant edema Neurologic/Psychiatric: other (moves all limbs equally) Skin: normal color, warm/dry Results/Procedures: Labs Laboratory Tests 04/22/20 05:30: White Blood Count 8.0, Red Blood Count 3.24L, Hemoglobin 9.7L, Hematocrit 29L, Mean Corpuscular Volume 88, Mean Corpuscular Hemoglobin 30, Mean Corpuscular Hemoglobin Concent 34, Red Cell Distribution Width 18.0H, Platelet Count 233, Mean Platelet Volume 11.0H, Neutrophils (%) (Auto) 65, Lymphocytes (%) (Auto) 18, Monocytes (%) (Auto) 14H, Eosinophils (%) (Auto) 2, Basophils (%) (Auto) 0, Neutrophils # (Auto) 5.2, Lymphocytes # (Auto) 1.5, Monocytes # (Auto) 1.1H, Eosinophils # (Auto) 0.2, Basophils # (Auto) 0.0, Sodium Level 132L, Potassium Level 4.0, Chloride Level 99, Carbon Dioxide Level 24, Anion Gap 9, Blood Urea Nitrogen 17, Creatinine 0.69, Estimat Glomerular Filtration Rate > 60, BUN/Creatinine Ratio 25, Glucose Level 93, Calcium Level 7.9L, Phosphorus Level 2.5, Magnesium Level 2.0 Microbiology 04/18/20 MRSA Screen - Final, Complete MRSA not isolated 04/18/20 Blood Culture - Preliminary, Resulted No growth Laboratory Tests 04/21/20 06:03 04/22/20 05:30 A/P: Assessment: Severe hyponatremia at presentation, probably partly due to decomp CHF (hypervolemic hyponatremia) but meds may be contributing (chronic use of laxatives and diuretics). Dr Mcneal managing Multifactorial shortness of breath Acute respiratory failure due to pneumonia with sepsis. Dr Reid and Dr Mcneal managing Ac on ch systolic and diastolic CHF CAD. H/o CABG x 3 around 2004. Last card cath at [facility] on 01/11/20: Mulitvessel CAD, MUELLER patent to LAD but with 90% focal LAD past MUELLER, occluded SVG to LCX, occluded SVG to RCA, LVEF 40-45%. Last PCI on 01/12/20 at [facility]: 2.5x15 Resolute [place] to prox LCX, but complicated by the loss a high lateral branch during PCI Echo of 04/20/20: LVEF 35-40%, grade 2 diastolic dysfunction, apical hypokinesis, RVSP 41 mmHg, AoV scl w/o stenosis, mild to mod TR, mod MR Chronic constipation for which she uses laxatives intermittently Mild chronic anemia that is followed by her pcp at [facility] Hyperlipidemia, treated with statins and followed by her pcp Chronic tremors, treated with primidone and followed by her pcp DJD; s/p Right THR in or around 2004; s/p Left hip repair in April 2016 Mild carotid arterial disease on carotid u/s of 05/29/19 Panic disorder Plan: * Complex management * Overall seems improved * Discharging back to LTC facility today per Dr Hill * Advise out pt f/u * Continue current cardiac regimen MARK BANKS MD FACP [facility] April 22, 2020 12:51
--- NOTE | 2020-04-22 13:28 | NUR ---
FINAL DISCHARGE PLAN: patient is discharged to [facility].
== END 2020-04-22 12:45 | DRG 871 ==
LOC: EDUNIT# 19:28 → ER 19:36 → ICU 21:10 → 4TH 04-20 13:47
PROVIDERS: ADMIT Internal Medicine; ATTEND Internal Medicine
DX: A41.9 Sepsis, unspecified organism (principal); R65.20 Severe sepsis without septic shock; J18.9 Pneumonia, unspecified organism; J96.00 Acute respiratory failure, unspecified whether with hypoxia or hypercapnia; I11.0 Hypertensive heart disease with heart failure; I50.43 Acute on chronic combined systolic (congestive) and diastolic (congestive) heart failure; E87.1 Hypo-osmolality and hyponatremia; Z66 Do not resuscitate; I48.91 Unspecified atrial fibrillation; I25.10 Atherosclerotic heart disease of native coronary artery without angina pectoris; I08.1 Rheumatic disorders of both mitral and tricuspid valves; E78.00 Pure hypercholesterolemia, unspecified; K21.9 Gastro-esophageal reflux disease without esophagitis; K59.09 Other constipation; M19.91 Primary osteoarthritis, unspecified site; F41.0 Panic disorder [episodic paroxysmal anxiety]; F32.9 Major depressive disorder, single episode, unspecified; F03.90 Unspecified dementia, unspecified severity, without behavioral disturbance, psychotic disturbance, mood disturbance, and anxiety; R25.1 Tremor, unspecified; Z95.1 Presence of aortocoronary bypass graft; Z20.828 Contact with and (suspected) exposure to other viral communicable diseases; Z96.643 Presence of artificial hip joint, bilateral; I25.810 Atherosclerosis of coronary artery bypass graft(s) without angina pectoris
CPT/HCPCS: 36415; 71045; 80048; 80053; 81000; 82805; 83605; 83735; 83880; 84100; 84484; 85007; 85025; 85027; 86141; 87040; 87081; 87635; 93306; 94640; 94660; 96361; 96374; 96375

== ENCOUNTER 2020-07-05 09:07 | Inpatient (IN) | payer MEDICARE, MEDICAID ==
[2020-07-05] VITALS (14 sets, daily range): BP systolic 75–135; BP diastolic 33–99
[~2020-07-05] VITALS: Ht 165 cm; Wt 96.0 kg
[~2020-07-05 09:07] MED LIST changes: +ACET325T49 PO; +ATOR80TA76 PO; +CARV3.12 PO; +CLOP75TA69 PO; +HALO100V4 IM; +MAG30ORA2 PO; +POTA20TA15 PO; +SENN-145 PO; +SENN-234 PO; +SPIR25TA5 PO
--- NOTE | 2020-07-05 09:30 | NUR ---
SEE LIST FOR CURRENT MEDS
[2020-07-05] MEDS ORDERED: LACTATED RINGERS 1,000 ML IV ONE ×2 (09:32)
[2020-07-05] MEDS ORDERED: NS IV 1000 ML 0 ML ONE (09:38)
--- NOTE | 2020-07-05 09:41 | ED General ---
General Stated Complaint: HYPOTENSION Source of Information: Patient, EMS, Longterm Records Exam Limitations: No Limitations History of Present Illness Date Seen by Provider: Jul 05, 2020 Time Seen by Provider: 09:02 Initial Comments Patient presents ER by EMS from [facility] in [place] with chief complaint of hypotension and subjective shortness of air noted this morning while doing her routine vital signs. Patient says she's had poor appetite for the past couple weeks and had diarrhea. She doesn't history of vascular dementia and some psych diagnoses. She is a DO NOT RESUSCITATE. IV fluids were started on route and her blood pressure was noted to be 70-90 systolic. She is not diabetic. EMS also initiated a nonrebreather because her oxygen sats were poor. She has a essential tremor. She does not use oxygen at baseline. She denies cough fever chills or sore throat runny nose. She denies any sick contacts or COVID-19 cases in the long-term. She has not traveled anywhere recently. DANILO a nurse practitioner who helps take care of her called and gave history that she does have a history of CHF and also has had some purposeful, perhaps malingering anorexia in the past which has led her to appear to be sick without any infectious source. If there is anything we can do outpatient she would be happy to go out and do that including IV fluids. The nurse practitioner is working with family to try and get the patient on to hospice. Her left arm is in a shoulder immobilizer secondary to dislocation from a fall weeks ago. She is on Lasix and spironolactone for her CHF which she has continued to take despite decreased appetite recently. Allergies and Home Medications Allergies Coded Allergies: clindamycin (Unverified Allergy, Unknown, 02/11/19) morphine (Verified Allergy, Unknown, 02/11/19) can take hydrocodone per pt Home Medications Acetaminophen 325 Mg Tablet, 650 MG PO BID, (Reported) Aspirin 81 Mg Tablet.dr, 81 MG PO HS, (Reported) Atorvastatin Calcium 80 Mg Tablet, 80 MG PO HS, (Reported) Carvedilol 3.125 Mg Tablet, 3.125 MG PO BID, (Reported) Cefdinir 300 Mg Capsule, 300 MG PO BID Prescribed by: AILEEN MUNIZ on 04/22/20 0603 Clonazepam 0.5 Mg Tablet, 0.5 MG PO HS PRN for ANXIETY Prescribed by: AILEEN MUNIZ on 04/22/20602 Clopidogrel Bisulfate 75 Mg Tablet, 75 MG PO DAILY, (Reported) Furosemide 40 Mg Tablet, 40 MG PO Q48H, (Reported) Haloperidol Decanoate 100 Mg/1 Ml Vial, 100 MG IM MONTHLY, (Reported) Mag Hydrox/Al Hydrox/Simeth 30 Ml Oral.susp, 30 ML PO Q6H PRN for INDIGESTION, (Reported) Magnesium Hydroxide 400 Mg/5 Ml Oral.susp, 30 ML PO DAILY PRN for CONSTIPATION-7 TH LINE, (Reported) Potassium Chloride 20 Meq Tab.er.prt, 20 MEQ PO BID WITH MEALS, (Reported) Sacubitril/Valsartan 1 Each Tablet, 1 TAB PO BID, (Reported) Sennosides 8.6 Mg Tablet, 8.6 MG PO BID, (Reported) Spironolactone 25 Mg Tablet, 25 MG PO DAILY Prescribed by: AILEEN MUNIZ on 04/22/20602 Patient Home Medication List Home Medication List Reviewed: Yes Review of Systems Review of Systems Constitutional: No chills, No diaphoresis, No fever; malaise EENTM: No ear discharge, No hearing loss, No ear pain Respiratory: No cough, No phlegm; short of breath; No wheezing Cardiovascular: No chest pain, No edema Gastrointestinal: No abdominal pain, No constipation; diarrhea, loss of appetite; No nausea Genitourinary: No discharge, No dysuria Musculoskeletal: No back pain, No joint pain Skin: No pruritus, No rash Psychiatric/Neurological: Denies Anxiety, Denies Depressed All Other Systems Reviewed Negative Unless Noted: Yes Past Nlhkdny-Wetzvp-Swtcub Hx Patient Social History Alcohol Use: Denies Use Recreational Drug Use: No Smoking Status: Never a Smoker Recent Hopitalizations: No Immunizations Up To Date Tetanus Booster (TDap): Unknown Date of Pneumonia Vaccine: April 01, 2009 Date of Influenza Vaccine: Sep 01, 2018 Seasonal Allergies Seasonal Allergies: No Past Medical History Surgeries: Yes (TRIPLE BYPASS-2005, r HIP REPLAEMENT , l hip 2016) Breast, Cardiac, CABG, Joint Replacement, Open Heart Surgery, Orthopedic Respiratory: No Currently Using CPAP: No Cardiac: Yes (CABG, chf) Atrial Fibrillation, Coronary Artery Disease, High Cholesterol, Hypertension Neurological: Yes Dementia Reproductive Disorders: Yes Female Reproductive Disorders: Denies 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 Sexually Transmitted Disease: No HIV/AIDS: No Genitourinary: Yes Bladder Infection, UTI-Chronic Gastrointestinal: Yes Gastroesophageal Reflux, Chronic Constipation Musculoskeletal: Yes Arthritis, Fractures Endocrine: No HEENT: No Cancer: No Psychosocial: Yes Anxiety, Depression Integumentary: Yes Pruritis Blood Disorders: No Adverse Reaction/Blood Tranf: No Family Medical History Cardiovascular disease 19 MOTHER Diabetes mellitus G8 BROTHER Hypercholesterolemia 19 FATHER Physical Exam Vital Signs Vital Signs - First Documented 07/05/20 09:11 Temp 36.3 Pulse 64 Resp 20 B/P (MAP) 75/48 (57) Pulse Ox 100 Capillary Refill : Height, Weight, BMI Height: 5'5.00" Weight: 169lbs. 5.0oz. 76.702153og; 29.05 BMI Method:Stated General Appearance: Chronically ill, Moderate Distress, Other (contractures of the left upper extremity, essential tremor) Eyes: Bilateral Eye Normal Inspection, Bilateral Eye PERRL, Bilateral Eye EOMI HEENT: PERRL/EOMI, Normal ENT Inspection, Pharynx Normal (moderately dry); No Moist Mucous Membranes Neck: Full Range of Motion, Normal Inspection, Non Tender Respiratory: Lungs Clear, Normal Breath Sounds, No Accessory Muscle Use, No Respiratory Distress Cardiovascular: Regular Rate, Rhythm, Normal Peripheral Pulses, Irregularly Irregular (heart rate around 70-90) Gastrointestinal: Normal Bowel Sounds, No Organomegaly, Non Tender, Soft Extremity: Normal Capillary Refill, Normal Inspection, Non Tender Neurologic/Psychiatric: Alert, Oriented x3, No Motor/Sensory Deficits, Normal Mood/Affect, 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 Mildly erythematous without significant discharge.) Focused Exam Lactate Level 07/05/20 09:18: Lactic Acid Level 2.54*H Lactic Acid Level Laboratory Tests Test 07/05/20 09:18 Lactic Acid Level 2.54 MMOL/L (0.50-2.00) *H Procedures/Interventions Lumen: triple Central Line Procedure: betadine prep Position: internal jugular (R) Anesthesia: Lidocaine Volume Anesthetic (ccs): 3 Complications: none Post Position: sutured, good blood return, position confirmed w/ CXR Site was observed with ultrasound demonstrating a good access for the right IJ. Sex cleaned with chlorhexidine prep and using sterile procedure we accessed using the provided introducer needle after infiltrating with 3 cc of 1% lidocaine without epinephrine. A small elba was made in the skin at the base of the needle after the guidewire was placed. Guidewire did not cause any ectopy. Needle was removed and then an dilator was passed over the guidewire and removed. Central lumen of the previously flushed triple lumen 16 cm 7 Trin[place] catheter was threaded over the guidewire and carefully stitched in place twice using the provided braided stitch at 12.5 centimeters. Were able to withdraw blood as well as flushed easily. Patient tolerated procedure well. The procedure required 2 attempts as the first attempt went into a carotid artery. We did yaritza ce pressure for about 5-10 minutes before making second attempt which was successful. Progress/Results/Core Measures Suspected Sepsis SIRS Temperature: Pulse: Respiratory Rate: Laboratory Tests 07/05/20 09:18: White Blood Count 12.4H Blood Pressure / Mean: 07/05/20 09:18: Lactic Acid Level 2.54*H Laboratory Tests 07/05/20 09:18: Creatinine 2.58H, INR Comment 1.0, Platelet Count 352, Total Bilirubin 0.2 Results/Orders Lab Results Laboratory Tests Test 07/05/20 09:18 07/05/20 09:30 07/05/20 09:35 Range/Units White Blood Count 12.4 H 4.3-11.0 10^3/uL Red Blood Count 3.42 L 4.35-5.85 10^6/uL Hemoglobin 10.3 L 11.5-16.0 G/DL Hematocrit 31 L 35-52 % Mean Corpuscular Volume 91 80-99 FL Mean Corpuscular Hemoglobin 30 25-34 PG Mean Corpuscular Hemoglobin Concent 33 32-36 G/DL Red Cell Distribution Width 17.5 H 10.0-14.5 % Platelet Count 352 130-400 10^3/uL Mean Platelet Volume 11.0 H 7.4-10.4 FL Neutrophils (%) (Auto) 76 H 42-75 % Lymphocytes (%) (Auto) 13 12-44 % Monocytes (%) (Auto) 10 0-12 % Eosinophils (%) (Auto) 1 0-10 % Basophils (%) (Auto) 0 0-10 % Neutrophils # (Auto) 9.4 H 1.8-7.8 X 10^3 Lymphocytes # (Auto) 1.6 1.0-4.0 X 10^3 Monocytes # (Auto) 1.2 H 0.0-1.0 X 10^3 Eosinophils # (Auto) 0.2 0.0-0.3 10^3/uL Basophils # (Auto) 0.0 0.0-0.1 10^3/uL Prothrombin Time 13.5 12.2-14.7 SEC INR Comment 1.0 0.8-1.4 Activated Partial Thromboplast Time 27 24-35 SEC D-Dimer 3.32 H 0.00-0.49 UG/ML Urine Color YELLOW Urine Clarity CLEAR Urine pH 5.5 5-9 Urine Specific [place] 1.020 1.016-1.022 Urine Protein TRACE H NEGATIVE Urine Glucose (UA) NEGATIVE NEGATIVE Urine Ketones NEGATIVE NEGATIVE Urine Nitrite NEGATIVE NEGATIVE Urine Bilirubin NEGATIVE NEGATIVE Urine Urobilinogen 0.2 < = 1.0 MG/DL Urine Leukocyte Esterase NEGATIVE NEGATIVE Urine RBC (Auto) NEGATIVE NEGATIVE Urine RBC NONE /HPF Urine WBC NONE /HPF Urine Squamous Epithelial Cells 0-2 /HPF Urine Crystals NONE /LPF Urine Bacteria TRACE /HPF Urine Casts NONE /LPF Urine Mucus NEGATIVE /LPF Urine Culture Indicated NO Sodium Level 137 135-145 MMOL/L Potassium Level 6.1 H 3.6-5.0 MMOL/L Chloride Level 109 H 98-107 MMOL/L Carbon Dioxide Level 17 L 21-32 MMOL/L Anion Gap 11 5-14 MMOL/L Blood Urea Nitrogen 66 H 7-18 MG/DL Creatinine 2.58 H 0.60-1.30 MG/DL Estimat Glomerular Filtration Rate 18 BUN/Creatinine Ratio 26 Glucose Level 105 70-105 MG/DL Lactic Acid Level 2.54 *H 0.50-2.00 MMOL/L Calcium Level 8.7 8.5-10.1 MG/DL Corrected Calcium 9.4 8.5-10.1 MG/DL Magnesium Level 2.0 1.6-2.4 MG/DL Total Bilirubin 0.2 0.1-1.0 MG/DL Aspartate Amino Transf (AST/SGOT) 36 H 5-34 U/L Alanine Aminotransferase (ALT/SGPT) 18 0-55 U/L Alkaline Phosphatase 84 40-136 U/L C-Reactive Protein High Sensitivity 6.02 H 0.00-0.50 MG/DL B-Type Natriuretic Peptide 420.9 H <100.0 PG/ML Total Protein 5.9 L 6.4-8.2 GM/DL Albumin 3.1 L 3.2-4.5 GM/DL Blood Gas Puncture Site NA Blood Gas Patient Temperature 36.3 Arterial Blood pH 7.32 *L 7.37-7.43 Arterial Blood Partial Pressure CO2 30 L 35-45 MMHG Arterial Blood Partial Pressure O2 106 H 79-93 MMHG Arterial Blood HCO3 15 *L 23-27 MMOL/L Arterial Blood Total CO2 16.0 L 21.0-31.0 MMOL/L Arterial Blood Oxygen Saturation 98 94-100 % Arterial Blood Base Excess -9.9 L -2.5-2.5 MMOL/L Erlin Test NA Blood Gas Ventilator Setting NO Blood Gas Inspired Oxygen ROOM AIR My Orders Orders - CHANNNIG ABDI Ed Iv/Invasive Line Start (07/05/20 09:32) Lactated Ringers (Lr 1000 Ml Iv Solution (07/05/20:32) Cbc With Automated Diff (07/05/20:32) Comprehensive Metabolic Panel (07/05/20:32) Blood Culture (07/05/20:32) Sputum Culture (07/05/20:32) Urinalysis (07/05/20:32) Urine Culture (07/05/20:32) Protime With Inr (07/05/20:32) Partial Thromboplastin Time (07/05/20:32) Chest 1 View, Ap/Pa Only (07/05/20:32) Ed Iv/Invasive Line Start (07/05/20:32) Ed Iv/Invasive Line Start (07/05/20:32) Ekg Tracing (07/05/20:32) Vital Signs Adult Sepsis Patie Q15M (07/05/20:32) O2 (07/05/20 09:32) Remove Rings In Anticipation O (07/05/20:32) Lactic Acid Analyzer (07/05/20:32) Arterial Blood Gas (07/05/20 09:32) Catheter(Urinary) Insert & Ass 03,15 (07/05/20 09:32) Magnesium (07/05/20 09:41) BNP (07/05/20 09:41) Ns Iv 1000 Ml (Sodium Chloride 0.9%) (07/05/20 09:38) Ns Iv 1000 Ml (Sodium Chloride 0.9%) (07/05/20 10:08) Norepinephrine 4 Mg/250 Ml (Norepinephri (07/05/20 10:08) Norepinephrine 4 Mg/250 Ml (Norepinephri (07/05/20 10:30) Ed Iv/Invasive Line Start (07/05/20 10:16) Ns Iv 1000 Ml (Sodium Chloride 0.9%) (07/05/20 10:16) Ns Iv 1000 Ml (Sodium Chloride 0.9%) (07/05/20 10:16) Chest 1 View, Ap/Pa Only (07/05/20 10:16) Fibrin Degradation Products (07/05/20 10:16) Procalcitonin (Pct) (07/05/20 10:16) Hs C Reactive Protein (07/05/20 10:16) Erythrocyte Sedimentation Rate (07/05/20 10:16) Coronavirus Sars-Cov-2 So 2018 (07/05/20 10:16) Calcium Chloride 10% Injection (Calcium (07/05/20 10:30) Medications Given in ED Current Medications Medications Dose Ordered Sig/Mayela Route Start Time Stop Time Status Last Admin Dose Admin Lactated Ringer's 1,000 ml @ 0 mls/hr Q0M ONCE IV 07/05/20 09:32 07/05/20 10:19 DC 07/05/20 09:55 1,000 MLS/HR Sodium Chloride 1,000 ml @ 0 mls/hr Q0M ONCE IV 07/05/20 10:16 07/05/20 10:19 DC 07/05/20 10:10 1,000 MLS/HR Vital Signs/I&O 07/05/20 07/05/20 09:11 10:21 Temp 36.3 Pulse 64 66 Resp 20 B/P (MAP) 75/48 (57) 62/34 Pulse Ox 100 Capillary Refill : Progress Note #1: Time: 09:45 Progress Note Patient does have hypertension but no other SIRs criteria nor a source of infection yet. Suspect dehydration secondary to her diuretics and anorexia would be more likely the source of her hypotension if we don't find a source of infection. If her chest x-ray doesn't show any concerning signs then I would not consider her a PUI for COVID-19 either. Get an ABG because her fingertips are blue secondary to her hypotension. If she doesn't have any evidence of hypoxia this would further support diuretics and iatrogenic hypotension as a source of her presentation. Progress Note #2: Time: 10:10 Progress Note After 1-1/2 liter fluids we switched her over normal saline response to her high potassium. Her blood pressure is still soft so we will initiate some Levophed peripherally and start a central line. We discussed this with her and she consented after discussing the risks, benefits and alternatives. We have discussed the case with Venecia her daughter. She's not having any significant rest for symptoms and has no acute chest x-ray findings to suggest infection but it may be reasonable to obtain a COVID-19 swab. Progress Note #3: Time: 11:01 Progress Note Patient's blood pressure significantly improved with a map above 60 and blood pressure 104/46 on 0.2 mcg/kg/m of Levophed. Central line in place. Chest x-ray pending. ECG Initial ECG Impression Date: Jul 05, 2020 Initial ECG Impression Time: 09:17 Initial ECG Rate: 75 Initial ECG Rhythm: A Fib/Flutter Initial ECG Intervals: QT (596) Initial ECG Impression: Normal, Nonspecific Changes Comment Atrial fibrillation without rapid ventricular response. Fair amount of artifact due to essential tremor. Diagnostic Imaging Diagonstic Imaging: Xray Plain Films/CT/US/NM/MRI: chest Comments No cardiopulmonary processes acutely noted. She does have a fractured, displaced left proximal humerus. [facility] [place], [place] NAME: BAYLEE PEPE [employer] REC#: [id number] PT STATUS: REG ER : 1940 PHYSICIAN: CHANNING ABDI MD ADMIT DATE: 07/05/20/ER Draft Date of Exam:07/05/20 CHEST 1 VIEW, AP/PA ONLY INDICATION: Hypotension, shortness of air.. TECHNIQUE: Single view chest 9:52 AM. CORRELATION STUDY: 04/20/2020 FINDINGS: Poststernotomy and coronary bypass changes. Heart size and mediastinum are generally stable given difference in technique. Elevated left diaphragm. The lung high overall relatively clear at follow-up. Thin peripheral calcification over right breast implants. There is what appears to be a likely nonacute, impacted left humeral neck fracture. IMPRESSION: 1. No significant consolidating infiltrate suggests pneumonia at this time. 2. Previously noted opacity left lung base likely infiltrate and/or edema along with fusion has essentially resolved. Vasculature is normal at follow-up. Dictated on workstation # [id number] Dict: 07/05/20 0958 Trans: 07/05/20 1002 [facility] [id number] Interpreted by: DON WEBER DO Electronically signed by: Reviewed: Reviewed by Me Diagonstic Imaging: Xray Plain Films/CT/US/NM/MRI: chest (1v) Comments Interval placement of a right sided central catheter overlying the right internal jugular and terminating in the superior vena cava above the right atria. No evidence pneumothorax or crossing the midline. Reviewed: Reviewed by Me Departure Communication (Admissions) Time/Spoke to Admitting Phy: 11:05 Discussed the case with Dr. Wiley. She says the patient was tested negative for COVID 2 days ago. We have discontinued the COVID 19 swabs. She is okay with treating with fluids and pressors for dehydration and acute kidney injury secondary to medications. Dr. Wiley agrees with not initiate antibiotics without any source of infection. Impression Primary Impression: Hypotension (arterial) Qualified Codes: I95.2 - Hypotension due to drugs Additional Impressions: Acute kidney injury Dehydration Disposition: ADMITTED INPATIENT Condition: Critical Admissions Decision to Admit Reason: Admit from ER (General) Decision to Admit/Date: Jul 05, 2020 Time/Decision to Admit Time: 10:00 Departure-Patient Inst. Referrals: [facility] (PCP/Family) Primary Care Physician CHANNING ABDI Jul 05, 2020 09:41
[2020-07-05 09:43] LABS: BILIRUBIN,URINE NEGATIVE (NEGATIVE); CLARITY,URINE CLEAR; COLOR,URINE YELLOW; GLUCOSE, URINE (UA) NEGATIVE (NEGATIVE); KETONES,URINE NEGATIVE (NEGATIVE); LEUKOCYTE ESTERASE ,URINE NEGATIVE (NEGATIVE); NITRITE,URINE NEGATIVE (NEGATIVE); PH,URINE 5.5 (5-9); PROTEIN,URINE TRACE (NEGATIVE)
[2020-07-05 09:45] LABS: BASOPHILS % (AUTO) 0 % (0-10); EOSINOPHILS # (AUTO) 0.2 10^3/uL (0.0-0.3); EOSINOPHILS % (AUTO) 1 % (0-10); HEMATOCRIT 31 % (35-52); HEMOGLOBIN 10.3 G/DL (11.5-16.0); LYMPHOCYTES # (AUTO) 1.6 X 10^3 (1.0-4.0); LYMPHOCYTES % (AUTO) 13 % (12-44); MEAN CORPUSCULAR HEMOGLOBIN 30 PG (25-34); MEAN CORPUSCULAR HGB CONC 33 G/DL (32-36); MEAN CORPUSCULAR VOLUME 91 FL (80-99); MONOCYTES # (AUTO) 1.2 X 10^3 (0.0-1.0); MONOCYTES % (AUTO) 10 % (0-12); NEUTROPHILS # (AUTO) 9.4 X 10^3 (1.8-7.8); NEUTROPHILS % (AUTO) 76 % (42-75); PLATELET COUNT 352 10^3/uL (130-400); RED CELL DISTRIBUTION WIDTH 17.5 % (10.0-14.5); WHITE BLOOD COUNT 12.4 10^3/uL (4.3-11.0)
[2020-07-05 09:47] LABS: ABG BASE EXCESS -9.9 MMOL/L (-2.5-2.5); ABG OXYGEN SATURATION 98 % (94-100); ABG PCO2 30 MMHG (35-45); ABG PO2 106 MMHG (79-93)
[2020-07-05 09:50] LABS: ABG PH 7.32 (7.37-7.43); INSPIRED O2 ROOM AIR; PATIENT TEMP 36.3; VENTILATOR NO
--- NOTE | 2020-07-05 09:50 | NUR ---
PT HAS VERY LARGE DECUBITUS ULCER TO COCCYX AREA. PT REPOSITIONED TO R SIDE
[2020-07-05 09:53] LABS: BACTERIA,URINE TRACE /HPF; SQUAMOUS EPITHELIAL CELL,UR 0-2 /HPF
[2020-07-05 09:57] LABS: ALBUMIN 3.1 GM/DL (3.2-4.5); BILIRUBIN,TOTAL 0.2 MG/DL (0.1-1.0); CALCIUM 8.7 MG/DL (8.5-10.1); CREATININE SERUM 2.58 MG/DL (0.60-1.30); TOTAL PROTEIN 5.9 GM/DL (6.4-8.2)
[2020-07-05 09:59] LABS: POTASSIUM 6.1 MMOL/L (3.6-5.0)
--- NOTE | 2020-07-05 10:03 | Diagnostic Imaging Report ---
INDICATION: Hypotension, shortness of air.. TECHNIQUE: Single view chest 9:52 AM. CORRELATION STUDY: 04/20/2020 FINDINGS: Poststernotomy and coronary bypass changes. Heart size and mediastinum are generally stable given difference in technique. Elevated left diaphragm. The lung high overall relatively clear at follow-up. Thin peripheral calcification over right breast implants. There is what appears to be a likely nonacute, impacted left humeral neck fracture. IMPRESSION: 1. No significant consolidating infiltrate suggests pneumonia at this time. 2. Previously noted opacity left lung base likely infiltrate and/or edema along with fusion has essentially resolved. Vasculature is normal at follow-up. Dictated by: Dictated on workstation # [id number]
[2020-07-05] MEDS ORDERED: NS IV 1000 ML 1,000 ML ONE (10:08)
[2020-07-05] MEDS ORDERED: NOREPINEPHRINE 4 MG/250 ML 250 ML IV ONE (10:08)
[2020-07-05 10:12] LABS: PROTHROMBIN TIME PATIENT 13.5 SEC (12.2-14.7)
[2020-07-05] MEDS ORDERED: NS IV 1000 ML 1,000 ML IV ONE (10:16)
[2020-07-05] MEDS ORDERED: NS IV 1000 ML 1,000 ML IV SCH (10:16)
[2020-07-05] MEDS ORDERED: NOREPINEPHRINE 4 MG/250 ML 250 ML IV SCH ×2 (10:30→13:16)
[2020-07-05] MEDS ORDERED: CALCIUM CHLORIDE 1 GM/10 ML (IMS) SYR INJ ONE (10:30)
--- NOTE | 2020-07-05 11:27 | Diagnostic Imaging Report ---
INDICATION: Central line placement. Comparison with 07/05/2020. FINDINGS: Right jugular line is present tip is overlying superior vena cava. The lungs are well-aerated and clear. Heart is not enlarged. No pneumothorax or pleural effusion. Old rib deformity noted on the right with median sternotomy changes. IMPRESSION: Satisfactory right central line position. Dictated by: Dictated on workstation # [id number]
--- NOTE | 2020-07-05 12:25 | NUR ---
BAYLEE PEPE admitted to room CU7-1, with an admitting diagnosis of hypotension, on 07/05/20 from AM via cart, accompanied by staff.BAYLEE PEPE introduced to surroundings, call light, bed controls, phone, TV, temperature control, lights, meal times, smoking policy, visitor policy, side rail policy, bathrooms and showers. Patient Rights given to patient in the handbook. BAYLEE PEPE verbalizes understanding that [facility] is not responsible for the loss or damage to any personal effects or valuables that are kept in the patients posession during their hospitalization. The following Patient Care Plans were discussed with the pt: Discharge Planning. BAYLEE PEPE verbalizes understanding of Interdisciplinary Patient Education. Patient and/or family were informed about the Rapid Response Team and its purpose.
[2020-07-05] MEDS ORDERED: NS IV ONE (13:30)
[2020-07-05] MEDS ORDERED: EPINEPHrine 1 MG INJECTION 2 MG in NS (IVPB) 248 ML IV SCH (13:30)
[2020-07-05] MEDS: NS IV 1000 ML 1,000 ML IV SCH ×5 (13:56→21:19)
--- NOTE | 2020-07-05 14:29 | NUR ---
1300 DUE TO CHANGES IN STAFFING CARE OF PT TO THIS RN, REPORT RECEIVED FROM Marvel FINCH RN. PT AWAKE, ALERT TO NAME, WHEN ASKED WHERE SHE IS , PT STATES " I'M AT THE BANK.", ALSO STATES, "MY SISTER IS IN THE ROOM WITH US." , WHICH SHE IS NOT. BED ALARM ON AND CALL LIGHT WITHIN PERSONAL REACH, WILL CONTINUE TO MONITOR.
[2020-07-05 14:32] LABS: HEMOGLOBIN 9.4 G/DL (11.5-16.0); MEAN PLATELET VOLUME 10.6 FL (7.4-10.4); RED CELL DISTRIBUTION WIDTH 17.3 % (10.0-14.5); WHITE BLOOD COUNT 16.4 10^3/uL (4.3-11.0)
[2020-07-05 14:45] LABS: CALCIUM 8.6 MG/DL (8.5-10.1); CREATININE SERUM 1.79 MG/DL (0.60-1.30); POTASSIUM 5.3 MMOL/L (3.6-5.0)
[2020-07-05] MEDS ORDERED: CLON0.5T4 PO (15:05)
[2020-07-05] MEDS ORDERED: SPIR25TA PO (15:05)
[2020-07-05] MEDS ORDERED: CARV10CP7 PO (15:05)
[2020-07-05] MEDS ORDERED: NYST15PO4 TOP (15:05)
[2020-07-05] MEDS ORDERED: ACET-2267 PO (15:05)
[2020-07-05] MEDS ORDERED: IBUP-2185 PO (15:05)
--- NOTE | 2020-07-05 15:07 | NUR ---
MED REC WAS ENTERED USING THE ORDER SUMMARY REPORT FROM [facility] [place]
[2020-07-05] MEDS: RT-ALBUTEROL SULF 2.5 MG/3 ML PRE-MIX VIAL INH SCH ×2 (15:51→21:11)
[2020-07-05] MEDS: VASOPRESSIN INJECTION 20 UNIT in NORMAL SALINE 100 ML IV SCH ×2 (15:55→22:17)
--- NOTE | 2020-07-05 16:28 | Diagnostic Imaging Report ---
PROCEDURE: US Renal Bilateral. TECHNIQUE: Multiple real-time grayscale images were obtained over the kidneys in various projections bilaterally. INDICATION: Acute kidney injury. FINDINGS: Right kidney measures 9.2 x 4.9 x 5.2 cm and the left kidney measures 9.6 x 4.6 x 4.4 cm. Cortical thickness appears to be slightly thin. No calculi or hydronephrosis is identified. The bladder is decompressed by Ansari catheter. IMPRESSION: Mild cortical thinning bilaterally. There is no evidence of hydronephrosis or renal calculi. Dictated by: Dictated on workstation # [id number]
[2020-07-05] MEDS: SODIUM BICARBONATE 8.4% VIAL 100 MEQ in D5W 1000 ML IV SOLUTION 1,000 ML IV SCH (16:38)
[2020-07-05] MEDS ORDERED: NOREPINEPHRINE 8 MG in NS (IVPB) 250 ML IV SCH (16:45)
--- NOTE | 2020-07-05 20:58 | History & Physical ---
HPI History of Present Illness: 80 yo F transferred from [place] with hypotension and dehydration. Patient states that she has been feeling bad for the last few days. States that she feels alittle short of breath but otherwise breathing comfortably. She has had a decreased appetite recently and has continued to take medications for her CHF. She had a fall several weeks ago and dislocated her left shoulder which is in an immobilizer upon arrival. Saw patient in the ICU upon admission and patient awake and answering questions appropriately. She has not traveled and has not had any contact with anyone who has traveled. Tested neg in facility for COVID 2 days ago. Large decub ulcer that is clean and w/o signs of infection. Source: patient, RN/MD, [facility] Exam Limitations: no limitations Date seen by provider: Jul 05, 2020 Time Seen by Provider: 13:05 Attending Physician Melany Wiley MD PCP [place] [place] [facility] [place] Date of Admission Jul 05, 2020 at 11:19 Home Medications Home Medications Reviewed patient Home Medication Reconciliation performed by pharmacy medication reconciliations mechanical manufacturing technician and/or nursing. Patients Allergies have been reviewed. Allergies Coded Allergies: clindamycin (Unverified Allergy, Unknown, 02/11/19) morphine (Verified Allergy, Unknown, 02/11/19) can take hydrocodone per pt ONC-[id number]-[id number] Hx Patient Social History Living Status: [facility] Alcohol Use: Denies Use Recreational Drug Use: No Smoking Status: Never a Smoker Recent Foreign Travel: No Contact w/other who traveled: No Recent Hopitalizations: No Recent Infectious Disease Expo: No Immunizations Up To Date Tetanus Booster (TDap): Unknown Date of Pneumonia Vaccine: April 01, 2009 Date of Influenza Vaccine: Sep 01, 2018 Past Medical History Past Medical History 1. 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 Reported Hx of Gastric Ulcer with no known EGD 3. Coronary Artery Disease with history of CABG x3 2005 4. History of multiple falls with rt. hip fracture and compression fractures T12-L2 2007, fall causing sacroiliitis 2008- 5. Benign Essential Tremor 6. Depression/Anxiety- with periods of rapid speech and insomnia with evidence of paranoid behaviors. Recommend behavioral health evaluation 7. Hypertension 8. Hyperlipidemia 9. Sinus Bradycardia with SSS, symptomatic with admission 11/15. Can not tolerate Beta Blockers due to symptomatic bradycardia 10. Reported in clinic pt. drinks 5-7 Vodka drinks daily 11. Abuse of prescribed medications. Has been told not to take medications as she wants during previous hospitalizations. Pt. is not compliant and takes medications "as she sees fit". Past Surgical History 1. Colonoscopy 02/12 Chau 2. Bx breast lump right 3. ORIF Rt. Hip sp hip fracture- Teo 2007 4. CABG x3 2005 Jesse Family Medical History Family History: Cardiovascular disease 19 MOTHER Diabetes mellitus G8 BROTHER Hypercholesterolemia 19 FATHER Review of Systems (CHC) Constitutional: fever, malaise, weakness EENTM: no symptoms reported; No mouth pain, No nose congestion, No nose pain Respiratory: No cough; dyspnea on exertion, short of breath Cardiovascular: no symptoms reported; No chest pain, No edema, No palpitations Gastrointestinal: No abdominal pain, No constipation, No diarrhea; loss of appetite; No nausea, No vomiting Genitourinary: no symptoms reported; No dysuria, No frequency : No Musculoskeletal: joint pain (Left shoulder) Skin: other (Decub ulcer present on admission) Psychiatric/Neurological: No Symptoms Reported Reviewed Test Results Reviewed Test Results Lab Laboratory Tests Test 07/05/20 09:18 07/05/20 09:30 07/05/20 11:15 07/05/20 14:10 Range/Units White Blood Count 12.4 H 16.4 H 4.3-11.0 10^3/uL Red Blood Count 3.42 L 3.15 L 4.35-5.85 10^6/uL Hemoglobin 10.3 L 9.4 L 11.5-16.0 G/DL Hematocrit 31 L 29 L 35-52 % Mean Corpuscular Volume 91 92 80-99 FL Mean Corpuscular Hemoglobin 30 30 25-34 PG Mean Corpuscular Hemoglobin Concent 33 33 32-36 G/DL Red Cell Distribution Width 17.5 H 17.3 H 10.0-14.5 % Platelet Count 352 372 130-400 10^3/uL Mean Platelet Volume 11.0 H 10.6 H 7.4-10.4 FL Neutrophils (%) (Auto) 76 H 42-75 % Lymphocytes (%) (Auto) 13 12-44 % Monocytes (%) (Auto) 10 0-12 % Eosinophils (%) (Auto) 1 0-10 % Basophils (%) (Auto) 0 0-10 % Neutrophils # (Auto) 9.4 H 1.8-7.8 X 10^3 Lymphocytes # (Auto) 1.6 1.0-4.0 X 10^3 Monocytes # (Auto) 1.2 H 0.0-1.0 X 10^3 Eosinophils # (Auto) 0.2 0.0-0.3 10^3/uL Basophils # (Auto) 0.0 0.0-0.1 10^3/uL Prothrombin Time 13.5 12.2-14.7 SEC INR Comment 1.0 0.8-1.4 Activated Partial Thromboplast Time 27 24-35 SEC D-Dimer 3.32 H 0.00-0.49 UG/ML Urine Color YELLOW Urine Clarity CLEAR Urine pH 5.5 5-9 Urine Specific [place] 1.020 1.016-1.022 Urine Protein TRACE H NEGATIVE Urine Glucose (UA) NEGATIVE NEGATIVE Urine Ketones NEGATIVE NEGATIVE Urine Nitrite NEGATIVE NEGATIVE Urine Bilirubin NEGATIVE NEGATIVE Urine Urobilinogen 0.2 < = 1.0 MG/DL Urine Leukocyte Esterase NEGATIVE NEGATIVE Urine RBC (Auto) NEGATIVE NEGATIVE Urine RBC NONE /HPF Urine WBC NONE /HPF Urine Squamous Epithelial Cells 0-2 /HPF Urine Crystals NONE /LPF Urine Bacteria TRACE /HPF Urine Casts NONE /LPF Urine Mucus NEGATIVE /LPF Urine Culture Indicated NO Sodium Level 137 138 135-145 MMOL/L Potassium Level 6.1 H 5.3 H 3.6-5.0 MMOL/L Chloride Level 109 H 116 H 98-107 MMOL/L Carbon Dioxide Level 17 L 15 L 21-32 MMOL/L Anion Gap 11 7 5-14 MMOL/L Blood Urea Nitrogen 66 H 53 H 7-18 MG/DL Creatinine 2.58 H 1.79 H 0.60-1.30 MG/DL Estimat Glomerular Filtration Rate 18 27 BUN/Creatinine Ratio 26 30 Glucose Level 105 176 H 70-105 MG/DL Lactic Acid Level 2.54 *H 1.47 0.50-2.00 MMOL/L Calcium Level 8.7 8.6 8.5-10.1 MG/DL Corrected Calcium 9.4 8.5-10.1 MG/DL Magnesium Level 2.0 1.6-2.4 MG/DL Total Bilirubin 0.2 0.1-1.0 MG/DL Aspartate Amino Transf (AST/SGOT) 36 H 5-34 U/L Alanine Aminotransferase (ALT/SGPT) 18 0-55 U/L Alkaline Phosphatase 84 40-136 U/L C-Reactive Protein High Sensitivity 6.02 H 0.00-0.50 MG/DL B-Type Natriuretic Peptide 420.9 H 795.6 H <100.0 PG/ML Total Protein 5.9 L 6.4-8.2 GM/DL Albumin 3.1 L 3.2-4.5 GM/DL Procalcitonin 0.10 H 0.07 <0.10 NG/ML Blood Gas Puncture Site NA Blood Gas Patient Temperature 36.3 Arterial Blood pH 7.32 *L 7.37-7.43 Arterial Blood Partial Pressure CO2 30 L 35-45 MMHG Arterial Blood Partial Pressure O2 106 H 79-93 MMHG Arterial Blood HCO3 15 *L 23-27 MMOL/L Arterial Blood Total CO2 16.0 L 21.0-31.0 MMOL/L Arterial Blood Oxygen Saturation 98 94-100 % Arterial Blood Base Excess -9.9 L -2.5-2.5 MMOL/L Erlin Test NA Blood Gas Ventilator Setting NO Blood Gas Inspired Oxygen ROOM AIR Erythrocyte Sedimentation Rate 29 0-30 MM/HR Troponin I 0.103 H <0.028 NG/ML Physical Exam-(CHC) Physical Exam Vital Signs VS - Last 72 Hours, by Label 07/05/20 07/05/20 07/05/20 07/05/20 09:11 10:21 12:20 12:30 Temp 36.3 36.3 Pulse 64 66 66 72 Resp 20 20 19 B/P (MAP) 75/48 (57) 62/34 109/60 (43) 81/33 (49) Pulse Ox 100 98 93 O2 Delivery Room Air 07/05/20 07/05/20 07/05/20 07/05/20 13:00 13:17 13:49 14:00 Temp 36.3 Pulse 56 72 64 75 Resp 21 16 B/P (MAP) 89/62 (71) 105/60 (75) Pulse Ox 92 100 91 O2 Delivery Room Air Room Air FiO2 21 07/05/20 07/05/20 07/05/20 07/05/20 14:16 15:00 15:42 15:51 Temp 36.3 Pulse 75 85 75 Resp 28 16 B/P (MAP) 105/60 135/73 (93) 105/60 (75) Pulse Ox 92 91 100 O2 Delivery Room Air Room Air Room Air 07/05/20 07/05/20 07/05/20 07/05/20 15:55 16:00 16:00 16:33 Temp 36.9 Pulse 75 80 Resp 15 B/P (MAP) 105/60 118/99 (105) Pulse Ox 95 94 O2 Delivery Room Air Room Air 07/05/20 07/05/20 07/05/20 17:00 18:00 20:00 Temp 36.9 37.1 Pulse 83 82 Resp 15 B/P (MAP) 102/62 (75) 89/62 (71) Pulse Ox 94 94 O2 Delivery Room Air Room Air Capillary Refill : Less Than 3 SecondsLess Than 3 Seconds General Appearance: WD/WN, thin HEENT: PERRL/EOMI Neck: non-tender, full range of motion, supple Respiratory: chest non-tender, lungs clear, normal breath sounds, no respiratory distress, no accessory muscle use Cardiovascular: normal peripheral pulses, regular rate, rhythm, no edema, no murmur Gastrointestinal: normal bowel sounds, non tender, no organomegaly Back: no CVA tenderness, no vertebral tenderness Extremities: no pedal edema, no calf tenderness, normal capillary refill, other (LUE in immobilizer for dislocation) Neurologic/Psychiatric: 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 nml as tested, no motor/sensory deficits, alert, normal mood/affect, oriented x 3 Skin: other (decub ulcer present on buttock, no signs of secondary infection) Lymphatic: no adenopathy Assessment/Plan Assessment/Plan Admission Status: Inpatient Order (span 2 midnights) Reason for Inpatient Admission: patient requiring ICU care with hourly vitial, pressors and IVFs (1) Hypotension (arterial) Status: Acute Assessment & Plan: - Patient requiring pressors, admission to ICU, ppx starting antibiotics at this time due to pressures not responding to IVFs, Reviewed code status with patient and she would like to remain a DNR Qualifiers: Qualified Codes: I95.2 - Hypotension due to drugs (2) Acute kidney injury Status: Acute Assessment & Plan: - Repeat BMP (3) Dehydration Status: Acute (4) CAD (coronary artery disease) Status: Chronic Qualifiers: Qualified Codes: I25.10 - Atherosclerotic heart disease of [place] coronary artery without angina pectoris (5) Dementia Status: Chronic Qualifiers: Qualified Codes: F03.91 - Unspecified dementia with behavioral disturbance (6) HTN (hypertension) Status: Chronic Assessment & Plan: - Holding home meds due to hypotension Qualifiers: Qualified Codes: I10 - Essential (primary) hypertension (7) DVT prophylaxis Status: Acute Assessment & Plan: - Lovenox Clinical Quality Measures DVT/VTE Risk/Contraindication: Risk Factor Score Per Nursin RFS Level Per Nursing on Admit: 4+=Very High MELANY WILEY MD Jul 05, 2020 20:58
[2020-07-05] MEDS ORDERED: PIPERACILLIN/TAZO 4.5 GM/NS 100 ML IV ONE ×2 (21:15)
[2020-07-05] MEDS ORDERED: VANCOMYCIN 1500 MG/NS 500 ML IVPB IV ONE ×2 (21:30)
[2020-07-05] MEDS ORDERED: NS (IVPB) 100 ML ONE (21:39)
[2020-07-05] MEDS ORDERED: PIPERACILLIN/TAZO 4.5 GM VIAL (ZOSYN) IV ONE (21:39)
[2020-07-05] MEDS ORDERED: VANCOMYCIN 750 MG/VIAL IV ONE (21:40)
[2020-07-05] MEDS ORDERED: NS IV 500 ML 500 ML ONE (21:41)
[2020-07-05] MEDS: NOREPINEPHRINE 8 MG in NS (IVPB) 250 ML IV SCH (22:19)
[2020-07-05 22:40] LABS: CALCIUM 7.9 MG/DL (8.5-10.1); CREATININE SERUM 1.4 MG/DL (0.60-1.30); POTASSIUM 5.3 MMOL/L (3.6-5.0)
[2020-07-06] VITALS (25 sets, daily range): BP systolic 45–120; BP diastolic 26–89
[2020-07-06] MEDS: NS IV 1000 ML 1,000 ML IV SCH ×5 (00:13→20:50)
[2020-07-06] MEDS: RT-ALBUTEROL SULF 2.5 MG/3 ML PRE-MIX VIAL INH SCH ×4 (02:23→21:01)
[2020-07-06 02:57] LABS: BASOPHILS % (AUTO) 0 % (0-10); EOSINOPHILS # (AUTO) 0.2 10^3/uL (0.0-0.3); EOSINOPHILS % (AUTO) 2 % (0-10); HEMATOCRIT 26 % (35-52); HEMOGLOBIN 8.6 G/DL (11.5-16.0); LYMPHOCYTES # (AUTO) 1.6 X 10^3 (1.0-4.0); LYMPHOCYTES % (AUTO) 13 % (12-44); MEAN CORPUSCULAR HEMOGLOBIN 30 PG (25-34); MEAN CORPUSCULAR HGB CONC 33 G/DL (32-36); MEAN CORPUSCULAR VOLUME 91 FL (80-99); MEAN PLATELET VOLUME 10.4 FL (7.4-10.4); MONOCYTES # (AUTO) 1.2 X 10^3 (0.0-1.0); MONOCYTES % (AUTO) 10 % (0-12); NEUTROPHILS # (AUTO) 8.9 X 10^3 (1.8-7.8); NEUTROPHILS % (AUTO) 74 % (42-75); PLATELET COUNT 317 10^3/uL (130-400); RED CELL DISTRIBUTION WIDTH 17.4 % (10.0-14.5); WHITE BLOOD COUNT 11.9 10^3/uL (4.3-11.0)
[2020-07-06 03:14] LABS: CALCIUM 7.6 MG/DL (8.5-10.1); CREATININE SERUM 1.16 MG/DL (0.60-1.30); MAGNESIUM 1.5 MG/DL (1.6-2.4); PHOSPHORUS 3.3 MG/DL (2.3-4.7); POTASSIUM 4.7 MMOL/L (3.6-5.0)
[2020-07-06] MEDS: NOREPINEPHRINE 8 MG in NS (IVPB) 250 ML IV SCH ×2 (04:07→19:38)
[2020-07-06] MEDS ORDERED: PIPERACILLIN/TAZO 4.5 GM VIAL (ZOSYN) IV ONE (04:11)
[2020-07-06] MEDS ORDERED: NS (IVPB) 100 ML ONE (04:12)
[2020-07-06] MEDS: PIPERACILLIN/TAZOBACTAM (BULK) 4.5 GM in NS (IVPB) 100 ML IV SCH ×3 (04:28→19:52)
[2020-07-06] MEDS: MAGNESIUM 1 GM/100 ML IVPB 100 ML IV SCH ×3 (05:09→06:21)
[2020-07-06] MEDS: POTASSIUM CL 10MEQ/50ML IVPB 50 ML IV SCH (05:09)
[2020-07-06] MEDS: KCL 20 MEQ TAB (K-DUR) PO SCH (05:09)
[2020-07-06] MEDS: VASOPRESSIN INJECTION 20 UNIT in NORMAL SALINE 100 ML IV SCH ×2 (05:09→19:49)
[2020-07-06] MEDS ORDERED: MAGNESIUM 1 GM/100 ML IVPB 200 ML IV ONE (05:13)
[2020-07-06] MEDS: SODIUM BICARBONATE 8.4% VIAL 100 MEQ in D5W 1000 ML IV SOLUTION 1,000 ML IV SCH ×2 (06:48→20:50)
--- NOTE | 2020-07-06 07:38 | NUR ---
VANCOMYCIN DOSING SCR 1.16; IBW 57; CRCL ~ 35; BOLUS VANC 1500 MG WAS GIVEN LAST NIGHT; VANC 15 MG/KG X 67 KG ~ 1 GM Q24H CHECK TROUGH LEVEL 07/07 1900 HOLD DOSE AND CONTACT PHARMACY IF LEVEL IS GREATER THAN 20
--- NOTE | 2020-07-06 14:21 | NUR ---
"RD ASSESSMENT PMHx: CAD; HTN; HLD PT INTERACTION: Note pt has dementia, per chart review. Note all information is per chart review. Note avg PO intake 25% x2meal. Note no BM recorded, and pt not currently on bowel regimen. Note recent 8# wt loss x2mon. ABNORMAL NUTRITION-RELATED LAB VALUES LOW: Ca 7.6; Mg 1.5 HIGH: Cl 117; BUN 38; glu 109 Est. kcal needs: 1675 kcal | 25 kcal/kg Est. Pro needs: 54 g Pro | 0.8 g Pro/kg PES STATEMENT: Inadequate oral intake (NI-2.1) related to loss of appetite as evidenced by chart review | avg PO intake 25% x2meal INTERVENTION: Continue with current diet order of 2000mg Na diet. Add Ensure Enlive (vary) to meals TID, for increased kcal intake. Provides 350 kcal and 13 g Pro per serving. Will continue to follow and reassess as pt needs, intake, and status change. MONITOR/EVALUATE: PO Intake; Plan of Care; Hydration Status; Weight Status; Lab Values [place], , RD, LD"
[2020-07-06] MEDS ORDERED: LIDOCAINE/EPI 1%-1:100,000 (XYLOCAINE) 20ML INJ ONE (14:30)
[2020-07-06] MEDS ORDERED: LIDOCAINE/EPI 1%-1:100,000 (XYLOCAINE) 20ML ONE (14:34)
--- NOTE | 2020-07-06 14:34 | CONSULTATION REPORT ---
DATE OF SERVICE: 07/06/2020 ATTENDING ROOF FIXER: [facility]. HISTORY OF PRESENT ILLNESS: The patient is a 80-year-old female, who is a resident of a fpc. Staff had noticed hypotension and subjective shortness of breath. She has also had a very poor appetite in the past several weeks and diarrhea. She also does have a history of vascular dementia as well. She is also a do not resuscitate and do not intubate at this time. She was brought by EMS and resuscitated with IV fluids and is currently on a vasopressor. She also does have a history of congestive heart failure, atrial fibrillation as well as coronary artery disease. She was also found to have a large decubitus ulcer overlying the sacrum with fever and no exudative debris. PAST MEDICAL HISTORY: Coronary artery disease, hypertension, hypercholesterolemia, atrial fibrillation, dementia, chronic urinary tract infection, gastroesophageal reflux disease, chronic constipation and degenerative joint disease. PAST SURGICAL HISTORY: 1. Coronary artery bypass grafting x3 vessels 2005. 2. Right total hip arthroplasty 2007. 3. Left total hip arthroplasty 2016. ALLERGIES: CLINDAMYCIN and MORPHINE. MEDICATIONS: Aspirin, atorvastatin, carvedilol, cefdinir, clonazepam, Plavix, furosemide, allopurinol, magnesium hydroxide, potassium chloride, sacubitril/valsartan, Sennosides and spironolactone. SOCIAL HISTORY: Negative smoke and negative alcohol. FAMILY HISTORY: Brother, diabetes; father, hypercholesterolemia and mother, heart disease. REVIEW OF SYSTEMS: This is a well-nourished female, currently in a guarded overall condition. She does have some shortness of breath; however, controlled with the supplemental oxygen. No new cough or sputum production. No nausea or vomiting; however, has had decreased appetite in the past several months. He has a longstanding history of constipation, no red blood per rectum and no dark tarry stools. No fevers and chills with some weight loss in the past several months as well. All other review of systems are negative. PHYSICAL EXAMINATION: VITAL SIGNS: Temperature 37.0, blood pressure 89/54, pulse 82, respirations 17 and pulse ox 95% on room air. CHEST: Scattered rales and rhonchi bilaterally. HEART: Regular and no murmurs. EXTREMITIES: +1/3 bilateral lower extremity edema and negative Homans sign. HEENT: No scleral icterus or cervical lymphadenopathy. ABDOMEN: Soft, nontender and nondistended. SKIN: There is a stage IV decubitus ulcer overlying the sacrum with a rind of fever, no exudative material. There is a minimal amount of redness and erythema around the surrounding skin. ASSESSMENT AND PLAN: A 80-year-old female with a large decubitus ulcer with fibrinoexudative debris, which may be contributing to her hypotension due to the infectious process and the release of inflammatory mediators and due to her guarded position as well as a DNR status, we will proceed with a bedside debridement with local anesthesia. Job ID: [id number] DocumentID: [id number] Dictated Date: 07/06/2020 14:19:27 Bookkeeping Machine Operator Date: 07/06/2020 14:33:23 Dictated By: SHANDA SAINI MD
--- NOTE | 2020-07-06 18:51 | NUR ---
LATE ENTRY: DR SAINI NOTIFIED OF CONSULT FOR WOUND DEBRIDEMENT, CONSENT OBTAINED VIA TELEPHONE FROM PT'S SISTER- DURABLE POWER OF MARKETING SUPPORT COORDINATOR 1510 TIME OUT COMPLETED IN ROOM, DEBRIDEMENT COMPLETED, PT TOLERATED WELL. NEW ORDERS RECEIVED FOR DRESSING CHANGES. SEE ORDER HX.
[2020-07-06] MEDS: VANCOMYCIN INJECTION 1,000 MG in NS (IVPB) 250 ML IV SCH (19:52)
--- NOTE | 2020-07-06 20:24 | Progress Note ---
Subjective Subjective/Events-last exam Patient more sleepy this AM. Will answer questions but slow to answer. NPO. States that her pain comes and goes. She has alot of pain with rolling and position changes in bed. This AM they are changing the dressing on decub ulcer and it seems to have some necrotic skin and has an odor. Review of Systems Pulmonary: No Dyspnea, No Cough Cardiovascular: No: Chest Pain, Palpitations Neurological: Weakness Focused Exam Lactate Level 07/05/20 09:18: Lactic Acid Level 2.54*H 07/05/20 11:15: Lactic Acid Level 1.47 Objective Exam Last Set of Vital Signs Vital Signs Date Time Temp Pulse Resp B/P (MAP) Pulse Ox O2 Delivery O2 Flow Rate FiO2 07/06/20 19:44 36.8 07/06/20 18:00 120/85 (97) 95 Nasal Cannula 3.00 07/06/20 12:38 75 07/06/20 11:28 17 07/05/20 13:49 21 Capillary Refill : Less Than 3 SecondsLess Than 3 Seconds I&O Intake and Output 07/06/20 00:00 Intake Total 5695 ml Output Total 1020 ml Balance 4675 ml Intake Oral 595 ml IV Total 5100 ml Output Urine Total 1020 ml Daily Weight Change No General: Alert, Mild Distress (due to pain) Lungs: Clear to Auscultation, Normal Air Movement Heart: Regular Rate, No Murmurs Abdomen: Normal Bowel Sounds, Soft Extremities: Other (2+ pitting edema bilaterally) Skin: Other (Large decub ulcer present with necrotic borders and foul odor) Results/Procedures Lab Laboratory Tests 07/05/20 22:05: Sodium Level 139, Potassium Level 5.3H, Chloride Level 116H, Carbon Dioxide Level 13L, Anion Gap 10, Blood Urea Nitrogen 45H, Creatinine 1.40H, Estimat Glomerular Filtration Rate 36, BUN/Creatinine Ratio 32, Glucose Level 97, Calcium Level 7.9L, B-Type Natriuretic Peptide 2943.9H 07/06/20 02:39: Sodium Level 139, Potassium Level 4.7, Chloride Level 117H, Carbon Dioxide Level 13L, Anion Gap 9, Blood Urea Nitrogen 38H, Creatinine 1.16, Estimat Glomerular Filtration Rate 45, BUN/Creatinine Ratio 33, Glucose Level 109H, Calcium Level 7.6L, White Blood Count 11.9H, Red Blood Count 2.83L, Hemoglobin 8.6L, Hematocrit 26L, Mean Corpuscular Volume 91, Mean Corpuscular Hemoglobin 30, Mean Corpuscular Hemoglobin Concent 33, Red Cell Distribution Width 17.4H, Platelet Count 317, Mean Platelet Volume 10.4, Neutrophils (%) (Auto) 74, Lymphocytes (%) (Auto) 13, Monocytes (%) (Auto) 10, Eosinophils (%) (Auto) 2, Basophils (%) (Auto) 0, Neutrophils # (Auto) 8.9H, Lymphocytes # (Auto) 1.6, Monocytes # (Auto) 1.2H, Eosinophils # (Auto) 0.2, Basophils # (Auto) 0.0, Phosphorus Level 3.3, Magnesium Level 1.5L Microbiology 07/05/20 Blood Culture - Preliminary, Resulted No growth 07/05/20 MRSA Screen - Final, Complete MRSA not isolated 07/05/20 Urine Culture - Final, Complete NO GROWTH Assessment/Plan Assessment/Plan (1) Severe sepsis Status: Acute Assessment & Plan: 07/06: Patient continue to require pressors, + Blood culture and large decub ulcer with necrotic areas, Patient on Vanc/Zosyn (2) Bacteremia Status: Acute Assessment & Plan: - Gram + Cocci, awaiting type (3) Decubitus ulcer Status: Chronic Assessment & Plan: - Consult Surgery for debridement, possible source of infection Qualifiers: (4) Hypotension (arterial) Status: Acute Assessment & Plan: - Patient requiring pressors, admission to ICU, ppx starting antibiotics at this time due to pressures not responding to IVFs, Reviewed code status with patient and she would like to remain a DNR 07/06: Still requiring pressors this AM Qualifiers: Qualified Codes: I95.2 - Hypotension due to drugs (5) Acute kidney injury Status: Resolved Assessment & Plan: - Repeat BMP (6) Dehydration Status: Resolved (7) CAD (coronary artery disease) Status: Chronic Qualifiers: Qualified Codes: I25.10 - Atherosclerotic heart disease of [place] coronary artery without angina pectoris (8) Dementia Status: Chronic Qualifiers: Qualified Codes: F03.91 - Unspecified dementia with behavioral disturbance (9) HTN (hypertension) Status: Chronic Assessment & Plan: - Holding home meds due to hypotension Qualifiers: Qualified Codes: I10 - Essential (primary) hypertension (10) DVT prophylaxis Status: Acute Assessment & Plan: - Lovenox Clinical Quality Measures DVT/VTE Risk/Contraindication: Risk Factor Score Per Nursin RFS Level Per Nursing on Admit: 4+=Very High MELANY STOKES MD Jul 06, 2020 20:24
[2020-07-07] VITALS (25 sets, daily range): BP systolic 89–129; BP diastolic 50–83
[2020-07-07] MEDS: VASOPRESSIN INJECTION 20 UNIT in NORMAL SALINE 100 ML IV SCH ×4 (00:41→23:59)
--- NOTE | 2020-07-07 01:50 | OPERATIVE REPORT ---
DATE OF SERVICE: 07/06/2020 ADMITTING PHYSICIAN: Dr. Wiley. PREOPERATIVE DIAGNOSIS: Sacral decubitus ulcer, stage II with the area of 4 x 3 cm in dimension. POSTOPERATIVE DIAGNOSES: Sacral decubitus ulcer, stage II with the area of 4 x 3 cm in dimension. PROCEDURE: Debridement of skin and subcutaneous tissue overlying the sacrum, 4 x 3 cm in size. SURGEON: Shanda Saini MD. ANESTHESIA: Local. ESTIMATED BLOOD LOSS: Minimal. FINDINGS: Necrotic skin and viable subcutaneous tissue. DISPOSITION: The patient tolerated the procedure well. INDICATIONS: The patient is a 80-year-old female who is mostly bedridden at a senior care facility. She was admitted for hypotension and sepsis. Upon further examination, she was found to have a sacral decubitus ulcer. Upon examination, she has a stage II sacral decubitus ulcer with dimensions of 4 x 3 cm in size. DESCRIPTION OF PROCEDURE: The patient was placed in the left lateral decubitus position. The area was then prepped and draped in standard surgical fashion and 1% lidocaine with epinephrine was used to anesthetize the overlying skin to the lesion. The full thickness skin as well as a layer of subcutaneous tissue was then sharply debrided using a 10 blade. Good hemostasis was observed with direct pressure. The wound was then packed with sterile gauze followed by ABD pad. The patient tolerated the procedure well. We will instruct wet to dry dressings on a b.i.d. basis and frequent moving and offloading pressure to allow this to heal by secondary intention. Job ID: [id number] DocumentID: [id number] Dictated Date: 07/06/2020 15:16:32 Customer Service Voice Date: 07/07/2020 01:48:21 Dictated By: SHANDA SAINI MD
[2020-07-07] MEDS: RT-ALBUTEROL SULF 2.5 MG/3 ML PRE-MIX VIAL INH SCH ×4 (02:04→20:50)
[2020-07-07] MEDS: PIPERACILLIN/TAZOBACTAM (BULK) 4.5 GM in NS (IVPB) 100 ML IV SCH ×3 (03:11→17:33)
[2020-07-07] MEDS: NS IV 1000 ML 1,000 ML IV SCH ×4 (03:11→22:32)
[2020-07-07 03:34] LABS: BASOPHILS # (AUTO) 0.1 10^3/uL (0.0-0.1); BASOPHILS % (AUTO) 1 % (0-10); EOSINOPHILS # (AUTO) 0.3 10^3/uL (0.0-0.3); EOSINOPHILS % (AUTO) 3 % (0-10); HEMATOCRIT 24 % (35-52); HEMOGLOBIN 7.8 G/DL (11.5-16.0); LYMPHOCYTES # (AUTO) 1.8 X 10^3 (1.0-4.0); LYMPHOCYTES % (AUTO) 18 % (12-44); MEAN CORPUSCULAR HEMOGLOBIN 30 PG (25-34); MEAN CORPUSCULAR HGB CONC 33 G/DL (32-36); MEAN CORPUSCULAR VOLUME 91 FL (80-99); MEAN PLATELET VOLUME 10.4 FL (7.4-10.4); MONOCYTES % (AUTO) 10 % (0-12); NEUTROPHILS # (AUTO) 6.8 X 10^3 (1.8-7.8); NEUTROPHILS % (AUTO) 68 % (42-75); PLATELET COUNT 301 10^3/uL (130-400); RED CELL DISTRIBUTION WIDTH 17.5 % (10.0-14.5)
[2020-07-07 03:56] LABS: ALANINE AMINOTRANSFERASE 12 U/L (0-55); ALBUMIN 2.2 GM/DL (3.2-4.5); ALKALINE PHOSPHATASE 65 U/L (40-136); BILIRUBIN,TOTAL 0.3 MG/DL (0.1-1.0); BUN/CREATININE RATIO 24; CALCIUM 7.2 MG/DL (8.5-10.1); CARBON DIOXIDE 16 MMOL/L (21-32); CHLORIDE 115 MMOL/L (98-107); CREATININE SERUM 0.74 MG/DL (0.60-1.30); GFR ESTIMATED > 60; GLUCOSE 119 MG/DL (70-105); POTASSIUM 3.6 MMOL/L (3.6-5.0); SODIUM 138 MMOL/L (135-145)
[2020-07-07 04:12] LABS: MAGNESIUM 1.6 MG/DL (1.6-2.4); PHOSPHORUS 2.3 MG/DL (2.3-4.7)
[2020-07-07] MEDS: POTASSIUM CL 10MEQ/50ML IVPB 50 ML IV SCH ×3 (04:24→05:31)
[2020-07-07] MEDS: KCL 20 MEQ TAB (K-DUR) PO SCH (04:24)
[2020-07-07] MEDS: MAGNESIUM 1 GM/100 ML IVPB 100 ML IV SCH ×3 (04:24→05:31)
[2020-07-07] MEDS ORDERED: ALBUMIN 25% 25 GM/100 ML 50 ML IV ONE (09:45)
[2020-07-07] MEDS: SODIUM BICARBONATE 8.4% VIAL 100 MEQ in D5W 1000 ML IV SOLUTION 1,000 ML IV SCH (12:00)
--- NOTE | 2020-07-07 15:24 | Progress Note ---
Subjective Subjective/Events-last exam Patient states that she is comfortable this AM. States that she has alot of pain with moving and repositioning. Bed Bound. Review of Systems Pulmonary: No Dyspnea, No Cough Cardiovascular: No: Chest Pain, Palpitations Gastrointestinal: No: Nausea, Vomiting, Abdominal Pain, Diarrhea, Constipation Musculoskeletal: shoulder pain Neurological: Weakness, Incoordination Focused Exam Lactate Level 07/05/20 09:18: Lactic Acid Level 2.54*H 07/05/20 11:15: Lactic Acid Level 1.47 Objective Exam Last Set of Vital Signs Vital Signs Date Time Temp Pulse Resp B/P (MAP) Pulse Ox O2 Delivery O2 Flow Rate FiO2 07/07/20 14:00 71 115/83 (94) 88 Room Air 07/07/20 13:45 36.6 21 07/07/20 13:00 15 07/07/20 03:00 3.00 Capillary Refill : Less Than 3 SecondsLess Than 3 Seconds I&O Intake and Output 07/07/20 00:00 Intake Total 4149 ml Output Total 1575 ml Balance 2574 ml Intake Oral 0 ml IV Total 4149 ml Output Urine Total 1575 ml General: Alert, Other (thin elderly female, NAD) Lungs: Clear to Auscultation, Normal Air Movement Heart: Regular Rate, No Murmurs Abdomen: Normal Bowel Sounds, Soft, No Tenderness Extremities: No Edema, No Tenderness/Swelling Skin: Other (Large sacral decubitus wound, debrided bedside yesterday by Dr Mota) Results/Procedures Lab Laboratory Tests 07/07/20 03:10: White Blood Count 10.0, Red Blood Count 2.62L, Hemoglobin 7.8L, Hematocrit 24L, Mean Corpuscular Volume 91, Mean Corpuscular Hemoglobin 30, Mean Corpuscular Hemoglobin Concent 33, Red Cell Distribution Width 17.5H, Platelet Count 301, Mean Platelet Volume 10.4, Neutrophils (%) (Auto) 68, Lymphocytes (%) (Auto) 18, Monocytes (%) (Auto) 10, Eosinophils (%) (Auto) 3, Basophils (%) (Auto) 1, N eutrophils # (Auto) 6.8, Lymphocytes # (Auto) 1.8, Monocytes # (Auto) 1.0, Eosinophils # (Auto) 0.3, Basophils # (Auto) 0.1, Sodium Level 138, Potassium Level 3.6, Chloride Level 115H, Carbon Dioxide Level 16L, Anion Gap 7, Blood Urea Nitrogen 18, Creatinine 0.74, Estimat Glomerular Filtration Rate > 60, BUN/Creatinine Ratio 24, Glucose Level 119H, Calcium Level 7.2L, Corrected Calcium 8.6, Phosphorus Level 2.3, Magnesium Level 1.6, Total Bilirubin 0.3, Aspartate Amino Transf (AST/SGOT) 21, Alanine Aminotransferase (ALT/SGPT) 12, Alkaline Phosphatase 65, Total Protein 4.0L, Albumin 2.2L Microbiology 07/06/20 Gram Stain - Final, Resulted 07/06/20 Wound Culture - Preliminary, Resulted Proteus species Mixed Bacterial [place] 07/05/20 Blood Culture - Preliminary, Resulted No growth 07/05/20 Urine Culture - Final, Complete NO GROWTH Assessment/Plan Assessment/Plan (1) Severe sepsis Status: Acute Assessment & Plan: 07/06: Patient continue to require pressors, + Blood culture and large decub ulcer with necrotic areas, Patient on Vanc/Zosyn 07/07: Patient maintained on pressors, eICU managing, + blood cultures for multiple staph and strep bacteria, continue Vanc/Zosyn (2) Bacteremia Status: Acute Assessment & Plan: - Gram + Cocci, awaiting type (3) Decubitus ulcer Status: Chronic Assessment & Plan: - Consult Surgery for debridement, possible source of infection Qualifiers: (4) Hypotension (arterial) Status: Acute Assessment & Plan: - Patient requiring pressors, admission to ICU, ppx starting antibiotics at this time due to pressures not responding to IVFs, Reviewed code status with patient and she would like to remain a DNR 07/06: Still requiring pressors this AM Qualifiers: Qualified Codes: I95.2 - Hypotension due to drugs (5) Normocytic anemia Status: Acute Assessment & Plan: 07/07: Iron panel pending, if continues to trend down would stop Lovenox (6) Acute kidney injury Status: Resolved Assessment & Plan: - Repeat BMP (7) Dehydration Status: Resolved (8) CAD (coronary artery disease) Status: Chronic Qualifiers: Qualified Codes: I25.10 - Atherosclerotic heart disease of [place] coronary artery without angina pectoris (9) Dementia Status: Chronic Qualifiers: Qualified Codes: F03.91 - Unspecified dementia with behavioral disturbance (10) HTN (hypertension) Status: Chronic Assessment & Plan: - Holding home meds due to hypotension Qualifiers: Qualified Codes: I10 - Essential (primary) hypertension (11) DVT prophylaxis Status: Acute Assessment & Plan: - Lovenox Clinical Quality Measures DVT/VTE Risk/Contraindication: Risk Factor Score Per Nursin RFS Level Per Nursing on Admit: 4+=Very High MELANY STOKES MD Jul 07, 2020 15:23
[2020-07-07] MEDS ORDERED: TROUGH ORDER-PHARMACY XX NR (19:00)
[2020-07-07] MEDS: VANCOMYCIN INJECTION 1,000 MG in NS (IVPB) 250 ML IV SCH (20:45)
[2020-07-07] MEDS: HYDROcodone/APAP 5 MG/325 MG (LORTAB) TAB PO PRN (21:00)
[2020-07-08] VITALS (25 sets, daily range): BP systolic 84–119; BP diastolic 47–87
[2020-07-08] MEDS: SODIUM BICARBONATE 8.4% VIAL 100 MEQ in D5W 1000 ML IV SOLUTION 1,000 ML IV SCH ×2 (02:05→17:01)
[2020-07-08] MEDS: PIPERACILLIN/TAZOBACTAM (BULK) 4.5 GM in NS (IVPB) 100 ML IV SCH ×3 (02:06→18:14)
[2020-07-08] MEDS: RT-ALBUTEROL SULF 2.5 MG/3 ML PRE-MIX VIAL INH SCH ×4 (02:23→21:10)
[2020-07-08 03:47] LABS: BASOPHILS # (AUTO) 0.1 10^3/uL (0.0-0.1); BASOPHILS % (AUTO) 1 % (0-10); EOSINOPHILS # (AUTO) 0.3 10^3/uL (0.0-0.3); EOSINOPHILS % (AUTO) 4 % (0-10); HEMATOCRIT 23 % (35-52); HEMOGLOBIN 7.4 G/DL (11.5-16.0); LYMPHOCYTES # (AUTO) 2.1 X 10^3 (1.0-4.0); LYMPHOCYTES % (AUTO) 25 % (12-44); MEAN CORPUSCULAR HEMOGLOBIN 30 PG (25-34); MEAN CORPUSCULAR HGB CONC 33 G/DL (32-36); MEAN CORPUSCULAR VOLUME 91 FL (80-99); MEAN PLATELET VOLUME 9.8 FL (7.4-10.4); MONOCYTES % (AUTO) 12 % (0-12); NEUTROPHILS # (AUTO) 4.9 X 10^3 (1.8-7.8); NEUTROPHILS % (AUTO) 58 % (42-75); PLATELET COUNT 263 10^3/uL (130-400); RED CELL DISTRIBUTION WIDTH 17.8 % (10.0-14.5); WHITE BLOOD COUNT 8.4 10^3/uL (4.3-11.0)
[2020-07-08 04:06] LABS: ALANINE AMINOTRANSFERASE 12 U/L (0-55); ALBUMIN 2.3 GM/DL (3.2-4.5); ALKALINE PHOSPHATASE 57 U/L (40-136); BILIRUBIN,TOTAL 0.3 MG/DL (0.1-1.0); BUN/CREATININE RATIO 16; CALCIUM 7.1 MG/DL (8.5-10.1); CARBON DIOXIDE 16 MMOL/L (21-32); CHLORIDE 113 MMOL/L (98-107); CREATININE SERUM 0.64 MG/DL (0.60-1.30); GFR ESTIMATED > 60; GLUCOSE 96 MG/DL (70-105); POTASSIUM 3.5 MMOL/L (3.6-5.0); SODIUM 139 MMOL/L (135-145); TOTAL PROTEIN 4.2 GM/DL (6.4-8.2)
[2020-07-08] MEDS: MAGNESIUM 1 GM/100 ML IVPB 100 ML IV SCH (05:14)
[2020-07-08] MEDS: POTASSIUM CL 10MEQ/50ML IVPB 50 ML IV SCH ×3 (05:14→06:16)
[2020-07-08] MEDS: KCL 20 MEQ TAB (K-DUR) PO SCH (05:14)
[2020-07-08] MEDS: VASOPRESSIN INJECTION 20 UNIT in NORMAL SALINE 100 ML IV SCH ×2 (08:05→15:21)
[2020-07-08] MEDS: NS IV 1000 ML 1,000 ML IV SCH ×3 (08:06→17:05)
[2020-07-08] MEDS: NOREPINEPHRINE 8 MG in NS (IVPB) 250 ML IV SCH ×2 (10:19→17:03)
--- NOTE | 2020-07-08 11:15 | NUR ---
Pastoral care visit, with daughter at pts bedside, provided support and encouragement.
--- NOTE | 2020-07-08 12:29 | NUR ---
DR STOKES UPDATED THAT LEVO WAS RESTARTED.
--- NOTE | 2020-07-08 13:10 | Progress Note ---
Subjective Subjective/Events-last exam Patient sleepy this AM. States that she does not have pain if she is not moving. Breathing comfortably. Off pressors this AM. Review of Systems Pulmonary: No Dyspnea, No Cough Cardiovascular: No: Chest Pain, Palpitations Gastrointestinal: Nausea; No: Vomiting, Abdominal Pain Musculoskeletal: shoulder pain Neurological: Weakness Objective Exam Last Set of Vital Signs Vital Signs Date Time Temp Pulse Resp B/P (MAP) Pulse Ox O2 Delivery O2 Flow Rate FiO2 07/08/20 12:48 Room Air 07/08/20 12:00 36.4 07/08/20 11:00 95 21 90/47 (61) 92 07/07/20 13:45 21 07/07/20 03:00 3.00 Capillary Refill : Less Than 3 SecondsLess Than 3 Seconds I&O Intake and Output 07/08/20 00:00 Intake Total 2670 ml Output Total 1180 ml Balance 1490 ml Intake Oral 450 ml IV Total 2220 ml Output Urine Total 1180 ml General: Alert, No Acute Distress Lungs: Clear to Auscultation, Normal Air Movement Heart: Regular Rate, No Murmurs Abdomen: Soft, No Tenderness Extremities: Other (1+ pitting edema bilaterally) Skin: Other (Wound with bandage present, minimal drainage) Neuro: Normal Speech, Sensation Intact Results/Procedures Lab Laboratory Tests 07/07/20 19:55: Vancomycin Level Trough 13.8 07/08/20 03:40: White Blood Count 8.4, Red Blood Count 2.48L, Hemoglobin 7.4L, Hematocrit 23L, Mean Corpuscular Volume 91, Mean Corpuscular Hemoglobin 30, Mean Corpuscular Hemoglobin Concent 33, Red Cell Distribution Width 17.8H, Platelet Count 263, Mean Platelet Volume 9.8, Neutrophils (%) (Auto) 58, Lymphocytes (%) (Auto) 25, Monocytes (%) (Auto) 12, Eosinophils (%) (Auto) 4, Basophils (%) (Auto) 1, Neutrophils # (Auto) 4.9, Lymphocytes # (Auto) 2.1, Monocytes # (Auto) 1.0, Eosinophils # (Auto) 0.3, Basophils # (Auto) 0.1, Sodium Level 139, Potassium Level 3.5L, Chloride Level 113H, Carbon Dioxide Level 16L, Anion Gap 10, Blood Urea Nitrogen 10, Creatinine 0.64, Estimat Glomerular Filtration Rate > 60, BUN/Creatinine Ratio 16, Glucose Level 96, Calcium Level 7.1L, Corrected Calcium 8.5, Magnesium Level 1.9, Iron Level 23L, Total Iron Binding Capacity 154L, Uns aturated Iron Binding Capacity 131, Transferrin % Saturation 15, Total Bilirubin 0.3, Aspartate Amino Transf (AST/SGOT) 15, Alanine Aminotransferase (ALT/SGPT) 12, Alkaline Phosphatase 57, Total Protein 4.2L, Albumin 2.3L Microbiology 07/06/20 Gram Stain - Final, Resulted 07/06/20 Wound Culture - Preliminary, Resulted Proteus species Mixed Bacterial [place] 07/05/20 Blood Culture - Preliminary, Resulted No growth 07/05/20 Urine Culture - Final, Complete NO GROWTH Assessment/Plan Assessment/Plan (1) Severe sepsis Status: Acute Assessment & Plan: 07/06: Patient continue to require pressors, + Blood culture and large decub ulcer with necrotic areas, Patient on Vanc/Zosyn 07/07: Patient maintained on pressors, eICU managing, + blood cultures for multiple staph and strep bacteria, continue Vanc/Zosyn 07/08: Off pressors this AM, Continue Vanc/Zosyn, Palliative consult as patient is not wanting cares/turning (2) Bacteremia Status: Acute Assessment & Plan: - Gram + Cocci, awaiting type (3) Decubitus ulcer Status: Chronic Assessment & Plan: - Consult Surgery for debridement, possible source of infection Qualifiers: (4) Hypotension (arterial) Status: Acute Assessment & Plan: - Patient requiring pressors, admission to ICU, ppx starting antibiotics at this time due to pressures not responding to IVFs, Reviewed code status with patient and she would like to remain a DNR 07/06: Still requiring pressors this AM Qualifiers: Qualified Codes: I95.2 - Hypotension due to drugs (5) Normocytic anemia Status: Acute Assessment & Plan: 07/07: Iron panel pending, if continues to trend down would stop Lovenox (6) Acute kidney injury Status: Resolved Assessment & Plan: - Repeat BMP (7) Dehydration Status: Resolved (8) CAD (coronary artery disease) Status: Chronic Qualifiers: Qualified Codes: I25.10 - Atherosclerotic heart disease of [place] coronary artery without angina pectoris (9) Dementia Status: Chronic Qualifiers: Qualified Codes: F03.91 - Unspecified dementia with behavioral disturbance (10) HTN (hypertension) Status: Chronic Assessment & Plan: - Holding home meds due to hypotension Qualifiers: Qualified Codes: I10 - Essential (primary) hypertension (11) DVT prophylaxis Status: Acute Assessment & Plan: - Lovenox Clinical Quality Measures DVT/VTE Risk/Contraindication: Risk Factor Score Per Nursin RFS Level Per Nursing on Admit: 4+=Very High MELANY STOKES MD Jul 08, 2020 13:10
--- NOTE | 2020-07-08 13:46 | NUR ---
PALLIATIVE CARE RN asked to see patient regarding possible discharge which could include hospice. I have reviewed patient charts including last admission. Currently admitted with severe sepsis due to blood infection and sacral wound infection. Patient has a long history of inactivity with refusals to get out of bed, that and her not eating well has attributed to her sacral wound. Patient is alert, however she will act as if she is sleeping. Unsure what her ES DX would be for Hospice at this time.
--- NOTE | 2020-07-08 14:28 | NUR ---
MICRO CALLED TO REPORT MRSA GROWING IN PT'S WOUND, CONTACT ISOLATION CART ORDERED.
[2020-07-08] MEDS ORDERED: NOREPINEPHRINE 4 MG/250 ML 250 ML IV ONE (16:56)
--- NOTE | 2020-07-08 18:42 | Physician Query Clarification ---
"Physician Query-General Query to Physician: The medical record reflects the following clinical scenario: History/Risk factors: Dehydration, Sepsis Clinical Findings: Blood pressure on admission 70-80 systolic despite fluid boluses, TOÑO Treatment: Greater than 15L of total IV since admission, Norepi gtt continuous since admission Question: What condition best reflects the above clinical scenario? Please document response in the Progress notes or Discharge Summary. 1. Severe Sepsis Present On Admission with Hypovolemic/Septic Shock 2. Severe Sepsis with hypotension (as currently documented) 3. Other , with explanation of the clinical findings 4. Clinically undetermined, no explanation for the clinical findings Please remember a lack of response to the above will prompt a phone page by CDI/coding staff In responding to this query, please exercise your independent professional judgment. The purpose of this communication is to more accurately reflect the complexity of your patients condition. The fact that a question is asked does not imply that any particular answer is desired or expected. Thank you for timely response to this clarification. Cristin Lara, MSN, RN RN Specialist-Clinical Doc Improvement CD -Health Info Mgmt Operations [address] [facility] t: [phone] | f: [phone] If you are unable to reach me at my extension, I may be working from home. Please contact me at [phone] PHYSICIAN RESPONSE: Based on the clinical findings in the record, please respond to the query above on this document as an addendum. Physician Response: Physician Response 2 If you have questions please contact: University Services Program Associate: Ext: Thank you for your time and cooperation. Clinical Manager Career/University Services Program Associate This is a permanent part of the medical record CRISTIN LARA Jul 08, 2020 18:42 AILEEN MUNIZ DO Jul 15, 2020 21:13"
[2020-07-08] MEDS: VANCOMYCIN INJECTION 1,000 MG in NS (IVPB) 250 ML IV SCH (21:44)
[2020-07-09] VITALS (14 sets, daily range): BP systolic 81–105; BP diastolic 50–87
[2020-07-09] MEDS: VASOPRESSIN INJECTION 20 UNIT in NORMAL SALINE 100 ML IV SCH ×2 (01:00→09:04)
[2020-07-09] MEDS: NS IV 1000 ML 1,000 ML IV SCH ×3 (01:01→14:15)
--- NOTE | 2020-07-09 03:00 | NUR ---
Informed teleICU that patient has no DVT prophylaxis ordered, patient's hemoglobin is 7.4. TeleICU stated they will review chart.
[2020-07-09 03:06] LABS: BASOPHILS % (AUTO) 0 % (0-10); EOSINOPHILS # (AUTO) 0.2 10^3/uL (0.0-0.3); EOSINOPHILS % (AUTO) 2 % (0-10); HEMATOCRIT 23 % (35-52); HEMOGLOBIN 7.3 G/DL (11.5-16.0); LYMPHOCYTES # (AUTO) 1.8 X 10^3 (1.0-4.0); LYMPHOCYTES % (AUTO) 20 % (12-44); MEAN CORPUSCULAR HEMOGLOBIN 29 PG (25-34); MEAN CORPUSCULAR HGB CONC 32 G/DL (32-36); MEAN CORPUSCULAR VOLUME 91 FL (80-99); MEAN PLATELET VOLUME 9.9 FL (7.4-10.4); MONOCYTES # (AUTO) 0.9 X 10^3 (0.0-1.0); MONOCYTES % (AUTO) 10 % (0-12); NEUTROPHILS # (AUTO) 6.2 X 10^3 (1.8-7.8); NEUTROPHILS % (AUTO) 68 % (42-75); PLATELET COUNT 238 10^3/uL (130-400); RED CELL DISTRIBUTION WIDTH 18.1 % (10.0-14.5); WHITE BLOOD COUNT 9.1 10^3/uL (4.3-11.0)
[2020-07-09] MEDS: HYDROcodone/APAP 5 MG/325 MG (LORTAB) TAB PO PRN (03:10)
[2020-07-09] MEDS: PIPERACILLIN/TAZOBACTAM (BULK) 4.5 GM in NS (IVPB) 100 ML IV SCH ×3 (03:10→19:41)
[2020-07-09 03:26] LABS: BUN/CREATININE RATIO 14; CALCIUM 6.9 MG/DL (8.5-10.1); CARBON DIOXIDE 19 MMOL/L (21-32); CHLORIDE 112 MMOL/L (98-107); CREATININE SERUM 0.59 MG/DL (0.60-1.30); GFR ESTIMATED > 60; GLUCOSE 103 MG/DL (70-105); POTASSIUM 3.5 MMOL/L (3.6-5.0); SODIUM 141 MMOL/L (135-145)
[2020-07-09 04:32] LABS: MAGNESIUM 1.6 MG/DL (1.6-2.4)
[2020-07-09] MEDS: MAGNESIUM 1 GM/100 ML IVPB 100 ML IV SCH ×3 (06:08→08:59)
[2020-07-09] MEDS: POTASSIUM CL 10MEQ/50ML IVPB 50 ML IV SCH ×3 (06:08→08:58)
[2020-07-09] MEDS: KCL 20 MEQ TAB (K-DUR) PO SCH (06:10)
--- NOTE | 2020-07-09 07:47 | Diagnostic Imaging Report ---
EXAMINATION: Chest 1 view HISTORY: Sepsis COMPARISON: 07/05/2020 FINDINGS: Median sternotomy wires are aligned. There are coronary artery bypass graft markers. Right internal jugular central venous catheter tip terminates in the superior vena cava. Small bilateral pleural effusions with bibasilar atelectasis have increased. No pneumothorax is seen. Heart size is normal. There appears to be deformity of the left humeral head, poorly evaluated on chest radiograph. IMPRESSION: 1. Increase in small bilateral pleural effusions with overlying atelectasis. Dictated by: Dictated on workstation # [id number]
[2020-07-09] MEDS: RT-ALBUTEROL SULF 2.5 MG/3 ML PRE-MIX VIAL INH SCH ×3 (08:11→21:52)
--- NOTE | 2020-07-09 09:43 | Progress Note - Hospitalist ---
Subjective HPI/CC On Admission Date Seen by Provider: Jul 09, 2020 Time Seen by Provider: 09:00 Subjective/Events-last exam Patient is awake and alert but not interested in eating breakfast this morning. she had to go back on levo fed overnight-urine output is slightly low currently despite IV fluids going at about 125 mL an hour. BUN/creatinine creatinine are back down to normal. Patient notes that she has some pain on her bottom but still doesn't want to be turned much. She has no other complaints Review of Systems Musculoskeletal: back pain Neurological: Weakness Objective Exam Vital Signs Vital Signs Date Time Temp Pulse Resp B/P (MAP) Pulse Ox O2 Delivery O2 Flow Rate FiO2 07/09/20 16:00 36.3 79 16 81/66 (71) 91 Room Air 07/08/20 20:18 21 07/07/20 03:00 3.00 Capillary Refill : Less Than 3 SecondsLess Than 3 Seconds General Appearance: Chronically ill HEENT: Normal ENT Inspection Neck: Limited Range of Motion Respiratory: Chest Non Tender, Lungs Clear, Normal Breath Sounds, No Accessory Muscle Use, No Respiratory Distress Cardiovascular: Regular Rate, Rhythm, No Gallop, No JVD Gastrointestinal: Non Tender, Soft Rectal: Deferred Extremity: Pedal Edema Neurologic/Psychiatric: Alert, No Motor/Sensory Deficits, Depressed Affect Skin: Pallor Results/Procedures Lab Laboratory Tests 07/09/20 02:55 Patient resulted labs reviewed. Diagnosis/Problems Assessment/Plan (1) Severe sepsis Status: Acute Assessment & Plan: 07/06: Patient continue to require pressors, + Blood culture and large decub ulcer with necrotic areas, Patient on Vanc/Zosyn 07/07: Patient maintained on pressors, eICU managing, + blood cultures for multiple staph and strep bacteria, continue Vanc/Zosyn 07/08: Off pressors this AM, Continue Vanc/Zosyn, Palliative consult as patient is not wanting cares/turning 07/09: On pressors overnight again off this morning we'll continue to monitor and transferred to the floor if she stays off the levo fed. Currently a DO NOT RESUSCITATE-on vancomycin and Zosyn (2) Bacteremia Status: Acute Assessment & Plan: - Gram + Cocci,-MRSA and multiple other staph and strep organisms (3) Decubitus ulcer Status: Chronic Assessment & Plan: - Consult Surgery for debridement, possible source of infection Qualifiers: Pressure injury location: contiguous region involving back and buttock (4) Hypotension (arterial) Status: Acute Assessment & Plan: - Patient requiring pressors, admission to ICU, ppx starting antibiotics at this time due to pressures not responding to IVFs, Reviewed code status with patient and she would like to remain a DNR 07/06: Still requiring pressors this AM Qualifiers: Hypotension type: hypotension due to drug Qualified Codes: I95.2 - Hypotension due to drugs (5) Normocytic anemia Status: Acute Assessment & Plan: 07/07: Iron panel pending, if continues to trend down would s top Lovenox 07/09: Iron deficiency-H&H is stable start iron replacement (6) Acute kidney injury Status: Resolved Assessment & Plan: - Repeat BMP 07/09: Stable with normal BUN/creatinine but recent decreased urine output (7) Dehydration Status: Resolved (8) CAD (coronary artery disease) Status: Chronic Qualifiers: Coronary Disease-Associated Artery/Lesion type: [place] artery [place] vs. transplanted heart: [place] heart Associated angina: without angina Qualified Codes: I25.10 - Atherosclerotic heart disease of [place] coronary artery without angina pectoris (9) Dementia Status: Chronic Qualifiers: Dementia type: unspecified type Dementia behavioral disturbance: with behavioral disturbance Qualified Codes: F03.91 - Unspecified dementia with behavioral disturbance (10) HTN (hypertension) Status: Chronic Assessment & Plan: - Holding home meds due to hypotension Qualifiers: Hypertension type: essential hypertension Qualified Codes: I10 - Essential (primary) hypertension (11) DVT prophylaxis Status: Acute Assessment & Plan: - Lovenox Clinical Quality Measures DVT/VTE Risk/Contraindication: Risk Factor Score Per Nursin RFS Level Per Nursing on Admit: 4+=Very High ELY FRANCISCO MD Jul 09, 2020 09:43
[2020-07-09] MEDS: SODIUM BICARBONATE 8.4% VIAL 100 MEQ in D5W 1000 ML IV SOLUTION 1,000 ML IV SCH (11:07)
--- NOTE | 2020-07-09 15:05 | NUR ---
PT TRANSPORTED VIA BED TO ROOM 422 AFTER GIVING REPORT TO MANUEL GARCÍA. ALL PERSONAL BELONGINGS WITH PATIENT AT THIS TIME. PTS SON IS AT BEDSIDE AND IS AWARE OF TRANSPORT. SPOKE WITH DR FRANCISCO PRIOR TO TRANSPORT, OK WITH SBP 90-100 WITH MAP GREATER THAN 65.
--- NOTE | 2020-07-09 15:22 | NUR ---
RECEIVED REPORT FROM BED SETTER KASHIF. PT IS NOW IN ROOM 422, LAYING ON LEFT SIDE, LEFT ARM IN A SLING, AND SHE HAS NS AND ZOSYN RUNNING AT THIS TIME. PTS SON IS NOW IN ROOM WITH HER. TELE SITTER ORDERED TO WATCH SON D/T PAST ISSUES WITH SON GIVING MOM MEDICATIONS AND MAKING HER NERVOUS, PER REPORT THIS RN RECEIVED. THIS RN CALLED [facility] [employer] AND IT IS UP IN ROOM AT THIS TIME.
[2020-07-09] MEDS: ACETAMINOPHEN 500 MG TAB (TYLENOL) PO PRN (16:54)
[2020-07-09] MEDS: VANCOMYCIN INJECTION 1,000 MG in NS (IVPB) 250 ML IV SCH (19:58)
[2020-07-10 00:14] VITALS: BP 118/80
[2020-07-10] MEDS: NS IV 1000 ML 1,000 ML IV SCH ×3 (00:33→09:03)
[2020-07-10] MEDS: SODIUM BICARBONATE 8.4% VIAL 100 MEQ in D5W 1000 ML IV SOLUTION 1,000 ML IV SCH ×3 (00:33→17:45)
[2020-07-10] MEDS: PIPERACILLIN/TAZOBACTAM (BULK) 4.5 GM in NS (IVPB) 100 ML IV SCH ×2 (02:55→11:21)
[2020-07-10 04:00] VITALS: BP 94/72
[2020-07-10 06:25] LABS: BASOPHILS % (AUTO) 0 % (0-10); EOSINOPHILS % (AUTO) 0 % (0-10); HEMATOCRIT 23 % (35-52); HEMOGLOBIN 7.6 G/DL (11.5-16.0); LYMPHOCYTES # (AUTO) 1.5 X 10^3 (1.0-4.0); LYMPHOCYTES % (AUTO) 14 % (12-44); MEAN CORPUSCULAR HEMOGLOBIN 30 PG (25-34); MEAN CORPUSCULAR HGB CONC 33 G/DL (32-36); MEAN CORPUSCULAR VOLUME 91 FL (80-99); MEAN PLATELET VOLUME 10.4 FL (7.4-10.4); MONOCYTES # (AUTO) 1.1 X 10^3 (0.0-1.0); MONOCYTES % (AUTO) 10 % (0-12); NEUTROPHILS # (AUTO) 8.4 X 10^3 (1.8-7.8); NEUTROPHILS % (AUTO) 76 % (42-75); PLATELET COUNT 239 10^3/uL (130-400); RED CELL DISTRIBUTION WIDTH 18.5 % (10.0-14.5); WHITE BLOOD COUNT 11.1 10^3/uL (4.3-11.0)
[2020-07-10 06:38] LABS: BUN/CREATININE RATIO 14; CALCIUM 7.1 MG/DL (8.5-10.1); CARBON DIOXIDE 20 MMOL/L (21-32); CHLORIDE 112 MMOL/L (98-107); CREATININE SERUM 0.58 MG/DL (0.60-1.30); GFR ESTIMATED > 60; GLUCOSE 94 MG/DL (70-105); POTASSIUM 3.4 MMOL/L (3.6-5.0); SODIUM 138 MMOL/L (135-145)
[2020-07-10] MEDS: RT-ALBUTEROL SULF 2.5 MG/3 ML PRE-MIX VIAL INH SCH ×2 (07:38→19:36)
[2020-07-10 08:00] VITALS: BP 100/74
--- NOTE | 2020-07-10 11:10 | Progress Note - Hospitalist ---
Subjective HPI/CC On Admission Date Seen by Provider: Jul 10, 2020 Time Seen by Provider: 10:15 Subjective/Events-last exam Patient is concerned about a cavity that she has. She denies having any pain with the cavity She said she had seen Dr. Mckeon for in the past. In addition she is wondering where her wallet isn't thinks it may be in her car. When asked about her breathing she denies any problems and says that her buttocks is sore but she doesn't want to move. Review of Systems Musculoskeletal: back pain Neurological: Weakness Objective Exam Vital Signs Vital Signs Date Time Temp Pulse Resp B/P (MAP) Pulse Ox O2 Delivery O2 Flow Rate FiO2 07/10/20 09:13 97 Nasal Cannula 3.00 07/10/20 08:00 36.5 104 20 100/74 (83) 07/08/20 20:18 21 Capillary Refill : Less Than 3 SecondsLess Than 3 Seconds General Appearance: Chronically ill HEENT: Pale Conjunctivae (R) Neck: JVD, Limited Range of Motion Respiratory: Normal Breath Sounds, Decreased Breath Sounds, Other (Increased respiratory rate) Cardiovascular: Regular Rate, Rhythm, No Murmur Gastrointestinal: Normal Bowel Sounds, Non Tender, Soft Rectal: Deferred Extremity: Pedal Edema Results/Procedures Lab Laboratory Tests 07/10/20 06:15 Patient resulted labs reviewed. Diagnosis/Problems Assessment/Plan (1) Severe sepsis Status: Acute Assessment & Plan: 07/06: Patient continue to require pressors, + Blood culture a nd large decub ulcer with necrotic areas, Patient on Vanc/Zosyn 07/07: Patient maintained on pressors, eICU managing, + blood cultures for multiple staph and strep bacteria, continue Vanc/Zosyn 07/08: Off pressors this AM, Continue Vanc/Zosyn, Palliative consult as patient is not wanting cares/turning 07/09: On pressors overnight again off this morning we'll continue to monitor and transferred to the floor if she stays off the levo fed. Currently a DO NOT RESUSCITATE-on vancomycin and Zosyn 07/10: Is off pressors and is now showing evidence of fluid overload we'll give Lasix and decrease IV fluids-continue vancomycin and Zosyn (2) Bacteremia Status: Acute Assessment & Plan: - Gram + Cocci,-MRSA and multiple other staph and strep or ganisms (3) Decubitus ulcer Status: Chronic Assessment & Plan: - Consult Surgery for debridement, possible source of infection 07/10: May need wound care consult Qualifiers: Pressure injury location: contiguous region involving back and buttock (4) Hypotension (arterial) Status: Acute Assessment & Plan: - Patient requiring pressors, admission to ICU, ppx starting antibiotics at this time due to pressures not responding to IVFs, Reviewed code status with patient and she would like to remain a DNR 07/06: Still requiring pressors this AM ; off pressors but still slightly low MA P Qualifiers: Hypotension type: hypotension due to drug Qualified Codes: I95.2 - Hypotension due to drugs (5) Normocytic anemia Status: Acute Assessment & Plan: 07/07: Iron panel pending, if continues to trend down would stop Lovenox 07/09: Iron deficiency-H&H is stable start iron replacement (6) Acute kidney injury Status: Resolved Assessment & Plan: - Repeat BMP 07/09: Stable with normal BUN/creatinine but recent decreased urine output (7) Dehydration Status: Resolved (8) CAD (coronary artery disease) Status: Chronic Qualifiers: Coronary Disease-Associated Artery/Lesion type: [place] artery [place] vs. transplanted heart: [place] heart Associated angina: without angina Qualified Codes: I25.10 - Atherosclerotic heart disease of [place] coronary artery without angina pectoris (9) Dementia Status: Chronic Qualifiers: Dementia type: unspecified type Dementia behavioral disturbance: with behavioral disturbance Qualified Codes: F03.91 - Unspecified dementia with behavioral disturbance (10) HTN (hypertension) Status: Chronic Assessment & Plan: - Holding home meds due to hypotension Qualifiers: Hypertension type: essential hypertension Qualified Codes: I10 - Essential (primary) hypertension (11) DVT prophylaxis Status: Acute Assessment & Plan: - Lovenox Clinical Quality Measures DVT/VTE Risk/Contraindication: Risk Factor Score Per Nursin RFS Level Per Nursing on Admit: 4+=Very High ELY FRANCISCO MD Jul 10, 2020 11:10
--- NOTE | 2020-07-10 11:14 | NUR ---
NURSING FACILITY WHERE PT LIVES IS REQUESTING COVID SCREEN PRIOR TO RETURN. THE FACILITY TESTS EVERY SATURDAY.
[2020-07-10] MEDS ORDERED: FUROSEMIDE 40 MG/4 ML INJ (LASIX) IVP ONE (11:15)
[2020-07-10 12:00] VITALS: BP 110/74
[2020-07-10] MEDS: HYDROcodone/APAP 5 MG/325 MG (LORTAB) TAB PO PRN (12:11)
[2020-07-10] MEDS: ONDANSETRON 4 MG/2 ML (SDV) Z0FRAN IV PRN (12:54)
[2020-07-10 16:28] VITALS: BP 84/67
--- NOTE | 2020-07-10 16:41 | NUR ---
DR. FRANCISCO WAS CALLED WITH UPDATE ON PT'S BLOOD PRESSURE. ORDERS TO JUST WATCH HER AND LOWER HEAD OF BED A LITTLE TO COMPENSATE FOR ANY LIGHT HEADEDNESS.
[2020-07-10] MEDS: VANCOMYCIN INJECTION 1,000 MG in NS (IVPB) 250 ML IV SCH (19:57)
[2020-07-10 20:55] VITALS: BP 124/72
[2020-07-11] VITALS: BP_SYST 124; BP_SYST 84; BP_DIAS 58; BP_DIAS 72
--- NOTE | 2020-07-11 00:55 | NUR ---
DR. FRANCISCO NOTIFIED OF PT'S B/P 84/58 AND HR IN THE 140s. NEW ORDERS RECEIVED FOR 500ML FLUID BOLUS OF NORMAL SALINE NOW AND THEN START 75ML/HR OF NORMAL SALINE ONCE BOLUS IS COMPLETE. WILL CONTINUE TO MONITOR.
[2020-07-11] MEDS ORDERED: NS IV 500 ML 500 ML IV ONE (01:00)
[2020-07-11] MEDS: NS IV 1000 ML 1,000 ML IV SCH ×2 (01:06→12:41)
[2020-07-11] MEDS: ACETAMINOPHEN 500 MG TAB (TYLENOL) PO PRN (01:43)
[2020-07-11 03:49] VITALS: BP_SYST 0; BP_SYST 80; BP_DIAS 0; BP_DIAS 58
--- NOTE | 2020-07-11 04:08 | NUR ---
DR. FRANCISCO CALLED TO UPDATE ON PT STATUS AFTER FLUID BOLUS WITH B/P OF 80/58 AND LOW URINE OUTPUT OF 50 ML. NO NEW ORDERS RECEIVED. WILL CONTINUE TO MONITOR.
[2020-07-11 06:12] LABS: BASOPHILS % (AUTO) 0 % (0-10); EOSINOPHILS % (AUTO) 0 % (0-10); HEMATOCRIT 23 % (35-52); HEMOGLOBIN 7.4 G/DL (11.5-16.0); LYMPHOCYTES # (AUTO) 1.4 X 10^3 (1.0-4.0); LYMPHOCYTES % (AUTO) 13 % (12-44); MEAN CORPUSCULAR HEMOGLOBIN 30 PG (25-34); MEAN CORPUSCULAR HGB CONC 33 G/DL (32-36); MEAN CORPUSCULAR VOLUME 91 FL (80-99); MEAN PLATELET VOLUME 10.3 FL (7.4-10.4); MONOCYTES # (AUTO) 1.3 X 10^3 (0.0-1.0); MONOCYTES % (AUTO) 12 % (0-12); NEUTROPHILS # (AUTO) 7.8 X 10^3 (1.8-7.8); NEUTROPHILS % (AUTO) 74 % (42-75); PLATELET COUNT 203 10^3/uL (130-400); RED CELL DISTRIBUTION WIDTH 18.3 % (10.0-14.5); WHITE BLOOD COUNT 10.5 10^3/uL (4.3-11.0)
[2020-07-11 06:20] LABS: ALBUMIN 2.2 GM/DL (3.2-4.5)
[2020-07-11 06:21] LABS: CHLORIDE 107 MMOL/L (98-107); POTASSIUM 3.2 MMOL/L (3.6-5.0); SODIUM 137 MMOL/L (135-145)
[2020-07-11 06:22] LABS: CALCIUM 7.2 MG/DL (8.5-10.1)
[2020-07-11 06:23] LABS: GLUCOSE 99 MG/DL (70-105); TOTAL PROTEIN 4.3 GM/DL (6.4-8.2)
[2020-07-11 06:24] LABS: CARBON DIOXIDE 20 MMOL/L (21-32)
[2020-07-11 06:25] LABS: BILIRUBIN,TOTAL 0.3 MG/DL (0.1-1.0)
[2020-07-11 06:26] LABS: ALKALINE PHOSPHATASE 116 U/L (40-136)
[2020-07-11 06:27] LABS: CREATININE SERUM 0.76 MG/DL (0.60-1.30); GFR ESTIMATED > 60
[2020-07-11 06:28] LABS: BUN/CREATININE RATIO 12
[2020-07-11 06:29] LABS: ALANINE AMINOTRANSFERASE 602 U/L (0-55)
[2020-07-11] MEDS: RT-ALBUTEROL SULF 2.5 MG/3 ML PRE-MIX VIAL INH SCH ×2 (06:37→22:04)
[2020-07-11 08:00] VITALS: BP 85/57
[2020-07-11] MEDS: PIPERACILLIN/TAZOBACTAM (BULK) 4.5 GM in NS (IVPB) 100 ML IV SCH ×2 (08:04→16:08)
--- NOTE | 2020-07-11 10:20 | Progress Note - Hospitalist ---
Subjective HPI/CC On Admission Date Seen by Provider: Jul 11, 2020 Time Seen by Provider: 10:45 Subjective/Events-last exam MRSA of the wound being treated. Acute renal failure requiring supportive care Palliative care consulted due to very poor prognosis Pt sleeps most of the time Review of Systems General: Fatigue, Malaise Neurological: Confusion Objective Exam Vital Signs Vital Signs Date Time Temp Pulse Resp B/P (MAP) Pulse Ox O2 Delivery O2 Flow Rate FiO2 07/11/20 19:30 36.0 109 20 99/75 (83) 96 Nasal Cannula 2.00 07/08/20 20:18 21 Capillary Refill : Less Than 3 SecondsLess Than 3 Seconds General Appearance: No Apparent Distress, WD/WN, Chronically ill Respiratory: Chest Non Tender, Lungs Clear, Normal Breath Sounds, No Accessory Muscle Use, No Respiratory Distress Cardiovascular: Regular Rate, Rhythm, No Edema, No Gallop, No JVD, No Murmur, Normal Peripheral Pulses Results/Procedures Lab Laboratory Tests 07/11/20 06:05 Patient resulted labs reviewed. Assessment/Plan Assessment and Plan Assess & Plan/Chief Complaint Assessment: Mrsa wound Acute renal failure Hypotension End of life status Plan: Palliative care consult Wound care Supportive care Poor prognosis Clinical Quality Measures DVT/VTE Risk/Contraindication: Risk Factor Score Per Nursin RFS Level Per Nursing on Admit: 4+=Very High AILEEN MUNIZ DO Jul 11, 2020 10:20
--- NOTE | 2020-07-11 11:08 | NUR ---
PALLIATIVE CARE RN in to see patient earlier this morning. She was sitting up eating breakfast. Son was on the phone with her and she did not have the phone to her ear. Looked at clinical information and she does not appear to be doing well on paper ie: low BP, little urine output, low albumin attributing to 3rd spacing, elevated liver enzymes and BNP that is elevated. I have spoken to the daughter this morning a listened to her concerns regarding [facility] where patient resides. she would like to pursue placement at [facility]. I explained that I will need to discuss this with her ERI which is her brother. Once the doctor has spoken to ERI and discussed her prognosis I will be happy to assist in the discharge disposition to possibly include hospice. Addendum: 07/11/20 at 1128 by RAGINI HILL RN Spoke with Yara HWANGregarding call from patient's daughter. Explained to him the patient medical picture on paper vrs. in person look. He gave his blessing if the patient agrees to pursue placement at [facility]. Addendum: 07/11/20 at 1147 by RAGINI HILL RN SPOKE WITH THE PAITENT AND SON WAS IN THE ROOM. EXPLAINED TO PATIENT HOW SICK SHE IS AND THE DIFFCULTY WE ARE HAVING IN GETTING HER IMPROVED. TOLD HER ABOUT THE CONVERSATION WITH THE DAUGHTER REGARDING UNHAPPINESS WITH [facility]...PATIENT DID NOT ECHO THE SAME CONCERN AND WILL CONSIDER BEING [facility] A PLACEMENT.
[2020-07-11 12:00] VITALS: BP 83/54
[2020-07-11] MEDS: SODIUM BICARBONATE 8.4% VIAL 100 MEQ in D5W 1000 ML IV SOLUTION 1,000 ML IV SCH (12:42)
[2020-07-11 15:47] VITALS: BP 89/62
[2020-07-11] MEDS ORDERED: TROUGH ORDER-PHARMACY XX NR (19:00)
[2020-07-11 19:30] VITALS: BP 99/75
[2020-07-11] MEDS: VANCOMYCIN INJECTION 1,000 MG in NS (IVPB) 250 ML IV SCH (20:21)
[2020-07-12] VITALS: BP 101/70
[2020-07-12] MEDS: PIPERACILLIN/TAZOBACTAM (BULK) 4.5 GM in NS (IVPB) 100 ML IV SCH ×3 (00:25→15:45)
[2020-07-12] MEDS: NS IV 1000 ML 1,000 ML IV SCH (00:25)
[2020-07-12 04:00] VITALS: BP 115/80
[2020-07-12 04:04] LABS: BASOPHILS % (AUTO) 0 % (0-10); EOSINOPHILS # (AUTO) 0.1 10^3/uL (0.0-0.3); EOSINOPHILS % (AUTO) 1 % (0-10); HEMATOCRIT 22 % (35-52); HEMOGLOBIN 7.1 G/DL (11.5-16.0); LYMPHOCYTES # (AUTO) 1.6 X 10^3 (1.0-4.0); LYMPHOCYTES % (AUTO) 17 % (12-44); MEAN CORPUSCULAR HEMOGLOBIN 30 PG (25-34); MEAN CORPUSCULAR HGB CONC 32 G/DL (32-36); MEAN CORPUSCULAR VOLUME 92 FL (80-99); MEAN PLATELET VOLUME 11.1 FL (7.4-10.4); MONOCYTES # (AUTO) 1.1 X 10^3 (0.0-1.0); MONOCYTES % (AUTO) 12 % (0-12); NEUTROPHILS # (AUTO) 6.4 X 10^3 (1.8-7.8); NEUTROPHILS % (AUTO) 69 % (42-75); PLATELET COUNT 179 10^3/uL (130-400); RED CELL DISTRIBUTION WIDTH 18.4 % (10.0-14.5); WHITE BLOOD COUNT 9.2 10^3/uL (4.3-11.0)
[2020-07-12 04:36] LABS: CHLORIDE 105 MMOL/L (98-107); POTASSIUM 3.3 MMOL/L (3.6-5.0); SODIUM 136 MMOL/L (135-145)
[2020-07-12 04:37] LABS: CALCIUM 7.2 MG/DL (8.5-10.1)
[2020-07-12 04:38] LABS: GLUCOSE 89 MG/DL (70-105)
[2020-07-12 04:39] LABS: CARBON DIOXIDE 24 MMOL/L (21-32)
[2020-07-12 04:42] LABS: GFR ESTIMATED > 60
[2020-07-12 04:43] LABS: BUN/CREATININE RATIO 16
[2020-07-12] MEDS: RT-ALBUTEROL SULF 2.5 MG/3 ML PRE-MIX VIAL INH SCH ×2 (07:53→22:45)
[2020-07-12 08:00] VITALS: BP 88/51
--- NOTE | 2020-07-12 08:53 | NUR ---
Palliative Care in to see patient. She is resting at this time and appears comfortable I did not waken her.
--- NOTE | 2020-07-12 10:04 | Progress Note - Hospitalist ---
Subjective HPI/CC On Admission Date Seen by Provider: Jul 12, 2020 Time Seen by Provider: 10:45 Subjective/Events-last exam Power of attorney lawyer is her brother Heplock IV fluids since it appears she is having a slight wheeze with overload Hgb 7.1 Creatinine is now normal Palliative care consult is appreciated Family apparently in denial about the end-stage process of her life Review of Systems General: Fatigue, Malaise Neurological: Weakness Objective Exam Vital Signs Vital Signs Date Time Temp Pulse Resp B/P (MAP) Pulse Ox O2 Delivery O2 Flow Rate FiO2 07/12/20 16:00 36.7 108 16 107/72 (84) 100 Nasal Cannula 2.00 07/08/20 20:18 21 Capillary Refill : Less Than 3 SecondsLess Than 3 Seconds General Appearance: No Apparent Distress, WD/WN, Chronically ill Respiratory: Chest Non Tender, Lungs Clear, Normal Breath Sounds, No Accessory Muscle Use, No Respiratory Distress, Wheezing Cardiovascular: Regular Rate, Rhythm, No Edema, No Gallop, No JVD, No Murmur, Normal Peripheral Pulses Neurologic/Psychiatric: Alert, Oriented x3, No Motor/Sensory Deficits, Normal Mood/Affect, Disoriented Results/Procedures Lab Laboratory Tests 07/12/20 04:00 Patient resulted labs reviewed. Assessment/Plan Assessment and Plan Assess & Plan/Chief Complaint Assessment: Mrsa wound Acute renal failure Hypotension End of life status Plan: Palliative care consult Wound care Supportive care Poor prognosis 07/12/20: Palliative care appreciated Hemoglobin 7.1 Family in denial about her end stage process Heplock IV fluid patient wheezing a bit today Clinical Quality Measures DVT/VTE Risk/Contraindication: Risk Factor Score Per Nursin RFS Level Per Nursing on Admit: 4+=Very High AILEEN MUNIZ DO Jul 12, 2020 10:04
[2020-07-12 12:00] VITALS: BP 89/52
[2020-07-12 16:00] VITALS: BP 107/72
[2020-07-12] MEDS: ONDANSETRON 4 MG/2 ML (SDV) Z0FRAN IV PRN (17:17)
[2020-07-12] MEDS: HYDROcodone/APAP 5 MG/325 MG (LORTAB) TAB PO PRN (17:17)
[2020-07-12 20:00] VITALS: BP 118/77
[2020-07-12] MEDS: VANCOMYCIN INJECTION 1,000 MG in NS (IVPB) 250 ML IV SCH (21:33)
[2020-07-13 00:01] VITALS: BP 107/74
[2020-07-13] MEDS: PIPERACILLIN/TAZOBACTAM (BULK) 4.5 GM in NS (IVPB) 100 ML IV SCH ×3 (00:44→16:34)
[2020-07-13 04:00] VITALS: BP 103/68
--- NOTE | 2020-07-13 04:40 | NUR ---
PT IS YELLING OUT HELP. PT STATES SHE CANT BREATHE AND SHE IS IN PAIN. PAIN MEDICATION GIVEN PER EMAR. BREATHING TX GIVEN. LUNG SOUNDS ARE COARSE. PT CONTINUES TO CALL OUT FOR SOMETHING TO HELP HER BREATHE. DR. MUNIZ CALLED AND INFORMED OF PT STATUS. ORDER FOR LASIX 20MG IV ONCE AND FENTANYL 50 MCG Q2HR.
[2020-07-13] MEDS: HYDROcodone/APAP 5 MG/325 MG (LORTAB) TAB PO PRN (04:53)
[2020-07-13] MEDS: RT-ALBUTEROL SULF 2.5 MG/3 ML PRE-MIX VIAL INH PRN (05:14)
[2020-07-13] MEDS: fentaNYL INJECTION 100 MCG/2 ML AMP IVP PRN (05:24)
[2020-07-13] MEDS ORDERED: FUROSEMIDE 40 MG/4 ML INJ (LASIX) IVP ONE (05:30)
[2020-07-13 06:25] LABS: BASOPHILS % (AUTO) 0 % (0-10); EOSINOPHILS # (AUTO) 0.1 10^3/uL (0.0-0.3); EOSINOPHILS % (AUTO) 1 % (0-10); HEMATOCRIT 23 % (35-52); HEMOGLOBIN 7.3 G/DL (11.5-16.0); LYMPHOCYTES # (AUTO) 1.4 X 10^3 (1.0-4.0); LYMPHOCYTES % (AUTO) 17 % (12-44); MEAN CORPUSCULAR HEMOGLOBIN 30 PG (25-34); MEAN CORPUSCULAR HGB CONC 32 G/DL (32-36); MEAN CORPUSCULAR VOLUME 93 FL (80-99); MEAN PLATELET VOLUME 11.2 FL (7.4-10.4); MONOCYTES % (AUTO) 12 % (0-12); NEUTROPHILS % (AUTO) 70 % (42-75); PLATELET COUNT 163 10^3/uL (130-400); RED CELL DISTRIBUTION WIDTH 18.8 % (10.0-14.5); WHITE BLOOD COUNT 8.5 10^3/uL (4.3-11.0)
--- NOTE | 2020-07-13 06:36 | Progress Note - Hospitalist ---
Subjective HPI/CC On Admission Date Seen by Provider: Jul 13, 2020 Time Seen by Provider: 10:00 Subjective/Events-last exam Had a long conversation with Dallas Trammell the DPOA Comfort care protocol is recommended Overall has very minimal recovery potential Hospice candidate recommended Review of Systems General: Fatigue, Malaise Neurological: Weakness Objective Exam Vital Signs Vital Signs Date Time Temp Pulse Resp B/P (MAP) Pulse Ox O2 Delivery O2 Flow Rate FiO2 07/13/20 16:00 36.0 72 18 90/63 (72) 99 Nasal Cannula 2.00 07/13/20 09:15 28 Capillary Refill : Less Than 3 SecondsLess Than 3 Seconds General Appearance: No Apparent Distress, WD/WN HEENT: PERRL/EOMI, TMs Normal, Normal ENT Inspection, Pharynx Normal, Moist Mucous Membranes Neck: Full Range of Motion, Normal Inspection, Non Tender, Supple, Carotid Bruit Respiratory: Chest Non Tender, Lungs Clear, Normal Breath Sounds, No Accessory Muscle Use, No Respiratory Distress Cardiovascular: Regular Rate, Rhythm, No Edema, No Gallop, No JVD, No Murmur, Normal Peripheral Pulses Gastrointestinal: Normal Bowel Sounds, No Organomegaly, No Pulsatile Mass, Non Tender, Soft Back: Normal Inspection, No CVA Tenderness, No Vertebral Tenderness Extremity: Normal Capillary Refill, Normal Inspection, Normal Range of Motion, Non Tender, No Calf Tenderness, No Pedal Edema Neurologic/Psychiatric: Alert, Oriented x3, No Motor/Sensory Deficits, Normal Mood/Affect Skin: Normal Color, Warm/Dry Lymphatic: No Adenopathy Results/Procedures Lab Laboratory Tests 07/13/20 06:16 Patient resulted labs reviewed. Assessment/Plan Assessment and Plan Assess & Plan/Chief Complaint Assessment: Mrsa wound Acute renal failure Hypotension End of life status Plan: Palliative care consult Wound care Supportive care Poor prognosis 07/12/20: Palliative care appreciated Hemoglobin 7.1 Family in denial about her end stage process Heplock IV fluid patient wheezing a bit today 07/13/20: Spoke to Dallas Trammell DPOA Comfort care recommended Updated palliative care nurse Clinical Quality Measures DVT/VTE Risk/Contraindication: Risk Factor Score Per Nursin RFS Level Per Nursing on Admit: 4+=Very High AILEEN MUNIZ DO Jul 13, 2020 06:36
[2020-07-13 06:40] LABS: BUN/CREATININE RATIO 16; CALCIUM 7.4 MG/DL (8.5-10.1); CARBON DIOXIDE 22 MMOL/L (21-32); CHLORIDE 106 MMOL/L (98-107); CREATININE SERUM 0.74 MG/DL (0.60-1.30); GFR ESTIMATED > 60; GLUCOSE 97 MG/DL (70-105); POTASSIUM 3.2 MMOL/L (3.6-5.0); SODIUM 138 MMOL/L (135-145)
[2020-07-13] MEDS: RT-ALBUTEROL SULF 2.5 MG/3 ML PRE-MIX VIAL INH SCH (07:14)
[2020-07-13 07:53] VITALS: BP 103/69
--- NOTE | 2020-07-13 08:25 | NUR ---
Palliative Care RN in to see patient. Reviewed nursing note which indicated pt distress last night with inability to breathe. No evidence of this this morning after having 20 mg of Lasix x1 dose. Not much urine out from this, this RN readjust the catheter and her nurse flushed w 10 cc. Immediate return of 200 ml obtained. Listened to lungs this morning and they are not course at this time. Patient does not have very good depth of inspiration however and is at risk for developing PNE r/t this. Patient is still quite full of fluid and appears to be 3rd spaced. She is sitting on her bottom again and I explained to her that we would be turning her off of her bottom after breakfast. When patient is asked about how she is she reports " I am puny" and reports having pain in her bottom.
[2020-07-13 09:15] VITALS: BP 103/69
--- NOTE | 2020-07-13 09:42 | NUR ---
Palliative Care RN called and spoke to patient's son and daughter. They are concerned that their mother is not receiving the appropriate care especially if her kidneys are not producing urine. They would like her to be transferred to [place] to possibly receive dialysis. Told them that I will talk to the doctor regarding their concerns. Will also ask the doctor to call and speak to the patient's DPOA/brother, Dallas regarding patient's prognosis and options for treatment.
--- NOTE | 2020-07-13 11:53 | NUR ---
DR MUNIZ reports having spoken to Dallas HWNAG. She says we need to look for new facility placement. I was asked to put in the required CV-19 test . Facility will need negative result
--- NOTE | 2020-07-13 13:52 | NUR ---
"RD ASSESSMENT PMHx: CAD; HTN; HLD; dementia PT INTERACTION: Note pt has dementia and is A&Ox1, per chart review. Note all diet information gathered is per chart review. Note avg PO intake <25% x4d. Note last BM was 07/12, and pt not currently on bowel regimen. Note recent 54# wt gain x8d. This is probably due to fluid accumulation. Note presence of wound (L elbow). Given poor PO intake, and fluid accumulation, pt meets criteria for malnutrition per ASPEN guidelines. ABNORMAL NUTRITION-RELATED LAB VALUES LOW: K 3.2; Ca 7.4; Pro 4.3; alb 2.2 HIGH: Est. kcal needs: 1375 kcal | 15 kcal/kg Est. Pro needs: 110 g Pro | 1.2 g Pro/kg PES STATEMENT: Inadequate oral intake (NI-2.1) related to loss of appetite | dementia as evidenced by chart review | avg PO intake <25% x4d Inadequate protein intake (NI-5.6.1) related to increased protein needs as evidenced by low lab values Pro 4.3; alb 2.2 | presence of wound (L elbow) INTERVENTION: Continue with current diet order of 2000mg Na diet. Continue with current supplementation order of Ensure Enlive (vary) with meals TID, for increased kcal and protein intake. Provides 350 kcal and 13 g Pro per serving. Will continue to follow and reassess as pt needs, intake, and status change. MONITOR/EVALUATE: PO Intake; Plan of Care; Hydration Status; Weight Status; Lab Values [place], [place], RD, LD"
[2020-07-13 16:00] VITALS: BP 90/63
[2020-07-13] MEDS ORDERED: TROUGH ORDER-PHARMACY XX ONE (19:00)
[2020-07-13] MEDS: VANCOMYCIN INJECTION 1,000 MG in NS (IVPB) 250 ML IV SCH (21:36)
[2020-07-14 00:29] VITALS: BP 110/76
[2020-07-14] MEDS: PIPERACILLIN/TAZOBACTAM (BULK) 4.5 GM in NS (IVPB) 100 ML IV SCH ×3 (00:29→15:13)
[2020-07-14] MEDS: HYDROcodone/APAP 5 MG/325 MG (LORTAB) TAB PO PRN (04:34)
[2020-07-14 05:48] LABS: BASOPHILS % (AUTO) 0 % (0-10); EOSINOPHILS % (AUTO) 0 % (0-10); HEMATOCRIT 22 % (35-52); HEMOGLOBIN 7.1 G/DL (11.5-16.0); LYMPHOCYTES # (AUTO) 1.1 X 10^3 (1.0-4.0); LYMPHOCYTES % (AUTO) 13 % (12-44); MEAN CORPUSCULAR HEMOGLOBIN 31 PG (25-34); MEAN CORPUSCULAR HGB CONC 33 G/DL (32-36); MEAN CORPUSCULAR VOLUME 94 FL (80-99); MEAN PLATELET VOLUME 11.8 FL (7.4-10.4); MONOCYTES # (AUTO) 1.2 X 10^3 (0.0-1.0); MONOCYTES % (AUTO) 14 % (0-12); NEUTROPHILS # (AUTO) 6.2 X 10^3 (1.8-7.8); NEUTROPHILS % (AUTO) 72 % (42-75); PLATELET COUNT 140 10^3/uL (130-400); RED CELL DISTRIBUTION WIDTH 19.5 % (10.0-14.5); WHITE BLOOD COUNT 8.6 10^3/uL (4.3-11.0)
[2020-07-14 06:14] LABS: BUN/CREATININE RATIO 18; CALCIUM 7.4 MG/DL (8.5-10.1); CARBON DIOXIDE 23 MMOL/L (21-32); CHLORIDE 107 MMOL/L (98-107); CREATININE SERUM 0.74 MG/DL (0.60-1.30); GFR ESTIMATED > 60; GLUCOSE 92 MG/DL (70-105); POTASSIUM 3.3 MMOL/L (3.6-5.0); SODIUM 140 MMOL/L (135-145)
--- NOTE | 2020-07-14 07:34 | NUR ---
PTD VANCOMYCIN LABS: SCR 0.74 VANCOMYCIN TROUGH 07/13 19.9 (2044) 07/11 19, 07/07 13.8 PLAN: WILL DECREASE DOSE TO 750MG IV QHS, DUE TO SLOW INCREASE IN LEVEL OVER THE LAST WEEK. WILL CONTINUE TO MONITOR RENAL FXN, CLOSELY AND ADJUST THE DOSE IF NEEDED.
[2020-07-14 08:28] VITALS: BP 97/70
--- NOTE | 2020-07-14 10:09 | NUR ---
PALLIATIVE CARE RN in to see patient. She is alert and reports feeling awful. Is having labored respirations and reports not breathing well. She is quite edematous still. Not producing much urine but her BUN/Cr are normal. Looks to be third spacing. She is at the end of life of chronic multiple disease processes. Have spoken to RN, RT and Dr. Mcneal. She will get an RT Tx and PRN Fentanyl for her labored respirations and the Fentanyl will also help with her pain that she reports in her bottom. Awaiting a negative result on COVID swab and an acceptance of admission for [facility]
[2020-07-14] MEDS: fentaNYL INJECTION 100 MCG/2 ML AMP IVP PRN ×2 (10:22→14:37)
--- NOTE | 2020-07-14 11:18 | Progress Note - Hospitalist ---
Subjective HPI/CC On Admission Date Seen by Provider: Jul 14, 2020 Time Seen by Provider: 10:00 Subjective/Events-last exam Pt still declining Fentanyl given for air hunger Overall very debilitated End of life stage Getting second opinion from cardiology to see if he can help the patient Review of Systems General: Fatigue, Malaise Neurological: Weakness Objective Exam Vital Signs Vital Signs Date Time Temp Pulse Resp B/P (MAP) Pulse Ox O2 Delivery O2 Flow Rate FiO2 07/14/20 16:00 36.1 100 24 75/60 (65) 99 Nasal Cannula 2.00 07/13/20 09:15 28 Capillary Refill : Less Than 3 SecondsLess Than 3 Seconds General Appearance: No Apparent Distress, WD/WN HEENT: PERRL/EOMI, TMs Normal, Normal ENT Inspection, Pharynx Normal, Moist Mucous Membranes Neck: Full Range of Motion, Normal Inspection, Non Tender, Supple, Carotid Bruit Respiratory: Chest Non Tender, Lungs Clear, Normal Breath Sounds, No Accessory Muscle Use, No Respiratory Distress Cardiovascular: Regular Rate, Rhythm, No Edema, No Gallop, No JVD, No Murmur, Normal Peripheral Pulses Gastrointestinal: Normal Bowel Sounds, No Organomegaly, No Pulsatile Mass, Non Tender, Soft Back: Normal Inspection, No CVA Tenderness, No Vertebral Tenderness Extremity: Normal Capillary Refill, Normal Inspection, Normal Range of Motion, Non Tender, No Calf Tenderness, No Pedal Edema Neurologic/Psychiatric: Alert, Oriented x3, No Motor/Sensory Deficits, Normal Mood/Affect Skin: Normal Color, Warm/Dry Lymphatic: No Adenopathy Results/Procedures Lab Laboratory Tests 07/14/20 05:35 Patient resulted labs reviewed. Assessment/Plan Assessment and Plan Assess & Plan/Chief Complaint Assessment: Mrsa wound Acute renal failure Hypotension End of life status Plan: Palliative care consult Wound care Supportive care Poor prognosis 07/12/20: Palliative care appreciated Hemoglobin 7.1 Family in denial about her end stage process Heplock IV fluid patient wheezing a bit today 07/13/20: Spoke to [place] Trammell DPOA Comfort care recommended Updated palliative care nurse 07/14/20: End of life care Awaiting placement at group home Clinical Quality Measures DVT/VTE Risk/Contraindication: Risk Factor Score Per Nursin RFS Level Per Nursing on Admit: 4+=Very High AILEEN MUNIZ DO Jul 14, 2020 11:18
[2020-07-14] MEDS: RT-ALBUTEROL SULF 2.5 MG/3 ML PRE-MIX VIAL INH PRN (11:26)
--- NOTE | 2020-07-14 14:22 | NUR ---
Dr. Henry consult placed as directed by Dr. Mcneal for a second opinion of patient's overall health and prognosis as requested by family and insurance. This RN entered the order and notified Dr. Henry's office of the consult.
--- NOTE | 2020-07-14 14:58 | NUR ---
I CALLED DR. MUNIZ TO ASK ABOUT A POSSIBLE CHANGE IN DRESSING FOR THIS PT'S ULCER WOUND.
--- NOTE | 2020-07-14 15:00 | NUR ---
DR. HOLMAN CALLED TO LET HIM KNOW HW WAS CONSULTED ON ROOM 422.
--- NOTE | 2020-07-14 15:21 | NUR ---
DR. GUERRERO NOTIFIED OF CONSULT BY DR. MUNIZ
[2020-07-14 16:00] VITALS: BP 75/60
--- NOTE | 2020-07-14 16:13 | NUR ---
PALLIATIVE CARE RN called patient's son Nba, as requested. Updated him on the 2nd opinion consult for Dr. Henry. Nba was concerned that patient get up to walk...explained to him the reasons why this might not work for her. We compromised on patient sitting at side of bed which I explained also likely would not work. Went to patients's room to attempt to see to what degree of sitting she could attain. I explained to the patient Nba requested we do. First I removed her SCDs and her heel protection boots. Asked her to move her feet and she says she couldn't, then did,. I assisted with range of motion. She then told me that she didn't think sitting would work due being stiff. I called for assist and we instead turned her after cleaning up a small runny bowel movement. Patient became SOB while laying more flat. She was repositions to her left side and HOB elevated for ease of breathing. I asked Yudi Rn to give her something for SOB and she reported that she had just been cleaned and something was given at that time. Dr. Henry came in for 2nd option and cardiology assessment. He will review her old records.
--- NOTE | 2020-07-14 16:50 | NUR ---
DR. MUNZI WAS CALLED AND INFORMED OF PT'S BLOOD PRESSURE. IT WAS 75/60.
--- NOTE | 2020-07-14 16:59 | NUR ---
DR. MUNIZ SAYS DO SUPPORTIVE CARE.
--- NOTE | 2020-07-14 17:51 | Consultation-Cardiology ---
HPI-Cardiology Cardiology Consultation: Date of Consultation 07/14/20 Date of Admission Attending Physician Jazlyn Mcneal DO Admitting Physician [facility] Consulting Physician Gabby HENRY MD HPI: Time Seen by a Provider: 16:00 Chief Complaint: Congestive heart failure This is a 80-year-old lady who presented to the ER with complains of hypotension and shortness of breath. She has history of dementia. She is a DO NOT RESUSCITATE. Her initial blood pressure was systolic 90 mmHg. She was given IV fluids. With oxygenation she gradually improved. The patient previously has history of cardiomyopathy. With IV fluids her blood pressure improved. She denies active smoking. Pertinent family history is negative. When I saw the patient she just complains of being sick. She denied any active chest pain or shortness of breath. There is a discussion between the primary team and the family about palliation and hospice service. However at this point in time a decision has not been made. Review of Systems-Cardiology Review of Systems Constitutional: As described under HPI; No As described under HPI, No no symptoms reported, No chills, No fever, No lightheadedness; malaise, tiredness Eyes: No As described under HPI, No no symptoms reported, No blindness, No blurred vision, No contact lenses, No drainage, No decreased acuity, No foreign body sensation, No pain, No vision change Ears/Nose/Throat: No As described under HPI, No no symptoms reported, No chronic hearing loss, No ear discharge, No ear pain, No nasal drainage, No ulcerations Respiratory: No no symptoms reported; As described under HPI; No As described under HPI, No cough, No orthopnea, No shortness of breath, No SOB with excertion Cardiovascular: No no symptoms reported; As described under HPI; No As described under HPI, No chest pain, No edema, No irregular heart rate, No lightheadedness, No palpitations Gastrointestinal: No no symptoms reported, No As described under HPI, No abdomen distended, No abdominal pain, No blood streaked bowels, No constipation, No diarrhea, No nausea, No vomiting, No stool coloration changes Genitourinary: No As described under HPI, No burning, No dysuria, No discharge, No frequency, No flank pain, No hematuria, No urgency : No Skin: No rash, No skin related problems, No ulcerations Psychiatric/Neurological: No anxiety, No depression, No seizure, No focal weakness, No syncope Hematologic: No bleeding abnormalities All Other Systems Reviewed Negative Unless Noted: Yes [id number] Hx Patient Social History Living Status: [facility] Alcohol Use: Denies Use Recreational Drug Use: No Smoking Status: Never a Smoker Recent Foreign Travel: No Recent Infectious Disease Expo: No Hospitalization with Isolation: Denies Immunizations Up To Date Tetanus Booster (TDap): Unknown Date of Pneumonia Vaccine: April 01, 2009 Date of Influenza Vaccine: Sep 01, 2018 Past Medical History PMH As described under Assessment. Family Medical History Family Medical History: Reported h/o her mother having CAD and her father having high cholesterol. Family History: Cardiovascular disease 19 MOTHER Diabetes mellitus G8 BROTHER Hypercholesterolemia 19 FATHER Allergies and Home Medications Allergies Coded Allergies: clindamycin (Unverified Allergy, Unknown, 02/11/19) morphine (Verified Allergy, Unknown, 02/11/19) can take hydrocodone per pt Home Medications Acetaminophen 325 Mg Tablet, 650 MG PO BID, (Reported) Acetaminophen 500 Mg Tablet, 500 MG PO Q6H PRN for PAIN-MODERATE (5-7), (Reported) Aspirin 81 Mg Tablet.dr, 81 MG PO HS, (Reported) Carvedilol Phosphate 10 Mg Cpmp.24hr, 10 MG PO DAILY, (Reported) GIVE WITH FOOD Clonazepam 0.5 Mg Tablet, 0.5 MG PO DAILY PRN for ANXIETY, (Reported) Clopidogrel Bisulfate 75 Mg Tablet, 75 MG PO DAILY, (Reported) Haloperidol Decanoate 100 Mg/1 Ml Vial, 25 MG IM MONTHLY, (Reported) Ibuprofen 200 Mg Capsule, 400 MG PO TID, (Reported) Mag Hydrox/Al Hydrox/Simeth 30 Ml Oral.susp, 30 ML PO Q6H PRN for INDIGESTION, (Reported) Magnesium Hydroxide 400 Mg/5 Ml Oral.susp, 30 ML PO DAILY PRN for CONSTIPATION- 7TH LINE, (Reported) Nystatin 15 Gm Powder, 1 APPLIC TOP Q48H, (Reported) APPLY TO SACRAL AREA Sacubitril/Valsartan 1 Each Tablet, 1 TAB PO BID, (Reported) Sennosides 8.6 Mg Tablet, 8.6 MG PO BID, (Reported) Spironolactone 25 Mg Tablet, 25 MG PO DAILY, (Reported) Patient Home Medication List Home Medication List Reviewed: Yes Physical Exam-Cardiology Physical Exam Vital Signs/I&O 07/16/20 07/16/20 07/16/20 08:00 08:21 09:00 Temp 36.4 Pulse 96 Resp 22 B/P (MAP) 119/86 (97) Pulse Ox 98 98 O2 Delivery Nasal Cannula Nasal Cannula Nasal Cannula O2 Flow Rate 2.00 2.00 2.00 07/16/20 00:00 Intake Total 1020 ml Output Total 190 ml Balance 830 ml Capillary Refill : Less Than 3 SecondsLess Than 3 Seconds Constitutional: appears stated age, AAO x 3; No apparent distress; well- developed, well-nourished HEENT: PERRL; No discharge; hearing is well preserved, oral hygience is good; No ulceration, No xanthelasmas are seen Neck: No carotid bruit; carotid pulses are 2 + bilaterally Respiratory: chest is bilaterally symmetric, other (decreased breath sounds bilaterally.) Cardiovascular: regular rate-rhythm, S1 and S2, systolic murmur Gastrointestinal: soft, audible bowel sounds; No spleenomegaly Rectal: deferred Extremities: normal range of motion, non-tender, normal inspection; No clubbing, No cyanosis, No significant edema Neurologic/Psychiatric: alert, normal mood/affect, power is 5/5 both on sides Skin: normal color; No rash, No ulcerations Lymphatic: no adenopathy Data Review Labs Laboratory Tests 07/16/20 03:20: White Blood Count 10.0, Red Blood Count 2.41L, Hemoglobin 7.3L, Hematocrit 23L, Mean Corpuscular Volume 95, Mean Corpuscular Hemoglobin 30, Mean Corpuscular Hemoglobin Concent 32, Red Cell Distribution Width 21.2H, Platelet Count 107L, Mean Platelet Volume 12.0H, Neutrophils (%) (Auto) 71, Lymphocytes (%) (Auto) 16, Monocytes (%) (Auto) 12, Eosinophils (%) (Auto) 0, Basophils (%) (Auto) 0, Neutrophils # (Auto) 7.1, Lymphocytes # (Auto) 1.6, Monocytes # (Auto) 1.2H, Eosinophils # (Auto) 0.0, Basophils # (Auto) 0.0, Sodium Level 139, Potassium Level 3.6, Chloride Level 105, Carbon Dioxide Level 21, Anion Gap 13, Blood Urea Nitrogen 20H, Creatinine 1.08, Estimat Glomerular Filtration Rate 49, BUN/Creatinine Ratio 19, Glucose Level 80, Calcium Level 7.5L Microbiology 07/06/20 Gram Stain - Final, Complete 07/06/20 Wound Culture - Final, Complete Mixed Bacterial Ely Proteus species Pseudomonas aeruginosa Staphylococcus aureus 07/05/20 Blood Culture - Final, Complete No growth 07/05/20 Urine Culture - Final, Complete NO GROWTH ECG Impression ECG Comment Unclear rhythm. Lot of artifact. A/P-Cardiology Assessment/Admission Diagnosis Multifactorial shortness of breath Acute respiratory failure due to pneumonia with sepsis. Dr Reid and Dr Mcneal managing Ac on systolic CHF CAD. H/o CABG x 3 around 2004. Last card cath at [facility] on 01/11/20: Mulitvessel CAD, MUELLER patent to LAD but with 90% focal LAD past MUELLER, occluded SVG to LCX, occluded SVG to RCA, LVEF 40-45%. Last PCI on 01/12/20 at [facility]: 2.5x15 Resolute Ramana to prox LCX, but complicated by the loss a high lateral branch during PCI Echo of 07/16/2020 shows severe LV systolic dysfunction with an EF of 15 percent. Moderate to severe mitral regurgitation, moderate to severe tricuspid regurgitation. Chronic constipation for which she uses laxatives intermittently Mild chronic anemia that is followed by her pcp at [facility] Hyperlipidemia, treated with statins and followed by her pcp Chronic tremors, treated with primidone and followed by her pcp DJD; s/p Right THR in or around 2004; s/p Left hip repair in April 2016 Mild carotid arterial disease on carotid u/s of 05/29/19 Panic disorder Plan * This is a complex management issue * Continue diuretics * Continue DAPT due to relatively recent coronary intervention * Continue management of cardiomyopathy with outpatient medication including Entresto. * Poor prognosis from a cardiac perspective due to severe ischemic cardiomyopathy. Thank you for your consultation. Please call me if you have any questions. Fantasma Henry MD, FACP, FACC, FSCAI, FHRS, CCDS Interventional Cardiology Cardiac Electrophysiology Vascular Medicine and Endovascular Interventions Clinical Quality Measures DVT/VTE Risk/Contraindication: Risk Factor Score Per Nursin RFS Level Per Nursing on Admit: 4+=Very High Gabby HENRY MD Jul 14, 2020 17:51
--- NOTE | 2020-07-14 18:04 | Wound Care Assessment ---
Wound Care Assessment Date Seen by Provider: Jul 14, 2020 Time Seen by Provider: 17:53 Chief Complaint Sacral pressure ulcer, Stage 3. HPI The patient is a 80 year old female admitted with hypotension and dehydration, noted to have a sacral pressure ulcer, who has undergone surgical debridement. I have been asked to evaluate for further management of the wound. the patient has limited mobility, has not walked in over two months, is incontinent of urine and stool, and at the time of this interview is lying on her back. The base of the wound demonstrates viable, subcutaneous tissue, with predominant healthy granulation tissue, and no deep support structures seen. This is a Stage 3 pressure ulcer. The current dressing is saline moist 4 x 4's covered by Alevyn BFD. my concern would be that the moist 4 x 4's tend to bunch up and create a focus of pressure directly over the deepest portion of the wound. I would recommend changing to simple daily Alevyn sacral dressing. I will follow the patient while in hospital. Past Medical History: Admits Heart Disease (CAD, SSS. Other --- R hip fracture, spine fracture, resident of long-term care) Smoking Status: Never a Smoker Recreational Drug Use: No Alcohol Use: Denies Use Review of Systems Cardiovascular: Chest Pain Gastrointestinal: Abdominal Pain Exam Vital Signs Date Time Temp Pulse Resp B/P (MAP) Pulse Ox O2 Delivery O2 Flow Rate FiO2 07/14/20 16:00 36.1 100 24 75/60 (65) 99 Nasal Cannula 2.00 07/13/20 09:15 28 Capillary Refill : Less Than 3 SecondsLess Than 3 Seconds General Appearance: no apparent distress Cardiovascular: regular rate, rhythm Respiratory: normal breath sounds Back: other (Sacral ulcer --- 6.8 x 10.0 x 0.8 cm; base 75% granulation, 25% slough; mod. s.s. drainage.) Results Laboratory Tests 07/13/20 20:45: Vancomycin Level Trough 19.9 07/14/20 05:35: White Blood Count 8.6, Red Blood Count 2.29L, Hemoglobin 7.1L, Hematocrit 22L, Mean Corpuscular Volume 94, Mean Corpuscular Hemoglobin 31, Mean Corpuscular Hemoglobin Concent 33, Red Cell Distribution Width 19.5H, Platelet Count 140, Mean Platelet Volume 11.8H, Neutrophils (%) (Auto) 72, Lymphocytes (%) (Auto) 13, Monocytes (%) (Auto) 14H, Eosinophils (%) (Auto) 0, Basophils (%) (Auto) 0, Neutrophils # (Auto) 6.2, Lymphocytes # (Auto) 1.1, Monocytes # (Auto) 1.2H, Eosinophils # (Auto) 0.0, Basophils # (Auto) 0.0, Sodium Level 140, Potassium Level 3.3L, Chloride Level 107, Carbon Dioxide Level 23, Anion Gap 10, Blood Urea Nitrogen 13, Creatinine 0.74, Estimat Glomerular Filtration Rate > 60, BUN/Creatinine Ratio 18, Glucose Level 92, Calcium Level 7.4L Microbiology 07/06/20 Gram Stain - Final, Complete 07/06/20 Wound Culture - Final, Complete Mixed Bacterial Ely Proteus species Pseudomonas aeruginosa Staphylococcus aureus 07/05/20 Blood Culture - Final, Complete No growth 07/05/20 Urine Culture - Final, Complete NO GROWTH Assessment/Plan/Dx 1. Pressure ulcer, sacrum, Stage 3. 2. Dysmobility. 3. Fecal and urinary incontinence. 4. Obesity. Plan: have ordered Alevyn dressings and repositioning. Will follow. ANTIONETTE HICKMAN MD Jul 14, 2020 18:04
[2020-07-14] MEDS: VANCOMYCIN 750 MG/NS 250 ML IVPB IV SCH ×2 (20:06)
[2020-07-15] VITALS: BP 115/78
[2020-07-15] MEDS: PIPERACILLIN/TAZOBACTAM (BULK) 4.5 GM in NS (IVPB) 100 ML IV SCH ×3 (00:20→16:09)
[2020-07-15] MEDS: fentaNYL INJECTION 100 MCG/2 ML AMP IVP PRN ×2 (04:49→16:08)
[2020-07-15 06:35] LABS: BASOPHILS % (AUTO) 0 % (0-10); EOSINOPHILS % (AUTO) 0 % (0-10); HEMATOCRIT 23 % (35-52); HEMOGLOBIN 7.1 G/DL (11.5-16.0); LYMPHOCYTES # (AUTO) 1.2 X 10^3 (1.0-4.0); LYMPHOCYTES % (AUTO) 13 % (12-44); MEAN CORPUSCULAR HEMOGLOBIN 30 PG (25-34); MEAN CORPUSCULAR HGB CONC 32 G/DL (32-36); MEAN CORPUSCULAR VOLUME 95 FL (80-99); MEAN PLATELET VOLUME 11.9 FL (7.4-10.4); MONOCYTES # (AUTO) 1.2 X 10^3 (0.0-1.0); MONOCYTES % (AUTO) 13 % (0-12); NEUTROPHILS % (AUTO) 75 % (42-75); PLATELET COUNT 128 10^3/uL (130-400); RED CELL DISTRIBUTION WIDTH 20.3 % (10.0-14.5); WHITE BLOOD COUNT 9.3 10^3/uL (4.3-11.0)
[2020-07-15 06:56] LABS: BUN/CREATININE RATIO 18; CALCIUM 7.8 MG/DL (8.5-10.1); CARBON DIOXIDE 21 MMOL/L (21-32); CHLORIDE 106 MMOL/L (98-107); CREATININE SERUM 0.89 MG/DL (0.60-1.30); GFR ESTIMATED > 60; GLUCOSE 80 MG/DL (70-105); POTASSIUM 3.5 MMOL/L (3.6-5.0); SODIUM 139 MMOL/L (135-145)
[2020-07-15 08:00] VITALS: BP 94/68
--- NOTE | 2020-07-15 10:15 | NUR ---
Palliative Care RN went to see patient in her room. Upon entering noted patient to be talking out loud to herself. She is asking for a fix of her pants which she is wearing none and wants her top off as well She only has a gown on and asks that the sheet be removed reporting that she is hot She is a bit down on herself. When told that her body is not responding to our treatment she says it is her fault because "I am stupid". Tried to reassure her that in that she is just not feeling well. Had an episode of low B last night. No changes made. Patient is not yet comfort care only. We have requested a 2nd opinion on her terminal status through a consult with Dr. Henry. An echo has been ordered and not yet completed. Patient's POA has called to check on this this morning and I gave him an update. I still have not heard from [facility] on their acceptance, but discharge will be determined on Dr. Henry's assessment.
--- NOTE | 2020-07-15 11:25 | Progress Note - Hospitalist ---
Subjective HPI/CC On Admission Date Seen by Provider: Jul 15, 2020 Time Seen by Provider: 10:00 Subjective/Events-last exam Pt still third spacing quite a bit Albumin pending on on labs Cardiology is evaluating her for a second opinion Hgb low at 7.1 End-of-life process Review of Systems General: Fatigue, Malaise Neurological: Weakness Objective Exam Vital Signs Vital Signs Date Time Temp Pulse Resp B/P (MAP) Pulse Ox O2 Delivery O2 Flow Rate FiO2 07/15/20 21:10 100 Nasal Cannula 2.00 07/15/20 15:30 36.4 94 22 92/79 (83) 07/13/20 09:15 28 Capillary Refill : Less Than 3 SecondsLess Than 3 Seconds General Appearance: No Apparent Distress, WD/WN HEENT: PERRL/EOMI, TMs Normal, Normal ENT Inspection, Pharynx Normal, Moist Mucous Membranes Neck: Full Range of Motion, Normal Inspection, Non Tender, Supple, Carotid Bruit Respiratory: Chest Non Tender, Lungs Clear, Normal Breath Sounds, No Accessory Muscle Use, No Respiratory Distress Cardiovascular: Regular Rate, Rhythm, No Edema, No Gallop, No JVD, No Murmur, Normal Peripheral Pulses Gastrointestinal: Normal Bowel Sounds, No Organomegaly, No Pulsatile Mass, Non Tender, Soft Back: Normal Inspection, No CVA Tenderness, No Vertebral Tenderness Extremity: Normal Capillary Refill, Normal Inspection, Normal Range of Motion, Non Tender, No Calf Tenderness, No Pedal Edema Neurologic/Psychiatric: Alert, Oriented x3, No Motor/Sensory Deficits, Normal Mood/Affect Skin: Normal Color, Warm/Dry Lymphatic: No Adenopathy Results/Procedures Lab Laboratory Tests 07/15/20 06:25 Patient resulted labs reviewed. Assessment/Plan Assessment and Plan Assess & Plan/Chief Complaint Assessment: Mrsa wound Acute renal failure Hypotension End of life status Plan: Palliative care consult Wound care Supportive care Poor prognosis 07/12/20: Palliative care appreciated Hemoglobin 7.1 Family in denial about her end stage process Heplock IV fluid patient wheezing a bit today 07/13/20: Spoke to [place] Trammell DPMCKENNA Comfort care recommended Updated palliative care nurse 07/14/20: End of life care Awaiting placement at [facility] 07/15/20: Await cardiology second opinion Monitor hemoglobin Check liver panel ECHO today Clinical Quality Measures DVT/VTE Risk/Contraindication: Risk Factor Score Per Nursin RFS Level Per Nursing on Admit: 4+=Very High AILEEN MUNIZ DO Jul 15, 2020 11:25
[2020-07-15 12:25] LABS: ALBUMIN 2.3 GM/DL (3.2-4.5); BILIRUBIN,DIRECT 0.3 MG/DL (0.0-0.3); BILIRUBIN,INDIRECT 0.2 MG/DL; BILIRUBIN,TOTAL 0.5 MG/DL (0.1-1.0); TOTAL PROTEIN 4.2 GM/DL (6.4-8.2)
[2020-07-15] MEDS: ONDANSETRON 4 MG/2 ML (SDV) Z0FRAN IV PRN (12:28)
--- NOTE | 2020-07-15 13:39 | NUR ---
"RD ASSESSMENT PMHx: CAD; HLD; HTN; dementia; PT INTERACTION: Note pt has dementia, per chart review. Note all information gathered for nutrition follow-up is per chart review. Note avg PO intake <25% meals. Note pt drinks nutrition supplementation fairly well most days, but did not tolerate this morning. Note unable to determine issues with nausea, vomiting, constipation or diarrhea since last assessment. Note last BM was 07/15, and pt not currently on bowel regimen. ABNORMAL NUTRITION-RELATED LAB VALUES LOW: K 3.5; Ca7.8 HIGH: Est. kcal needs: 1450 kcal | 15 kcal/kg Est. Pro needs: 115 g Pro | 1.2 g Pro/kg PES STATEMENT: Inadequate oral intake (NI-2.1) related to loss of appetite as evidenced by chart review | avg PO intake <25% meals INTERVENTION: Continue with current diet order of 2000mg Na diet. Continue with current supplementation order of Ensure Enlive (vary) to meals TID, for increased kcal intake. Would encourage pt to eat when able. Will continue to follow and reassess as pt needs, intake, and status change. MONITOR/EVALUATE: PO Intake; Plan of Care; Hydration Status; Weight Status; Lab Values [place], MS, RD, LD"
[2020-07-15 15:30] VITALS: BP 92/79
--- NOTE | 2020-07-15 17:24 | Cardiology Progress Note ---
Cardiology SOAP Progress Note Subjective: Denies any chest pain. Objective: I&O/Vital Signs 07/16/20 07/16/20 07/16/20 08:00 08:21 09:00 Temp 36.4 Pulse 96 Resp 22 B/P (MAP) 119/86 (97) Pulse Ox 98 98 O2 Delivery Nasal Cannula Nasal Cannula Nasal Cannula O2 Flow Rate 2.00 2.00 2.00 07/16/20 00:00 Intake Total 1020 ml Output Total 190 ml Balance 830 ml Weight (Pounds): 169 Weight (Ounces): 5.0 Weight (Calculated Kilograms): [id number] Constitutional: AAO x 3 Respiratory: chest is bilaterally symmetric, other (decreased breath sounds bilaterally.) Cardiovascular: regular rate-rhythm, S1 and S2, systolic murmur Gastrointestional: soft, audible bowel sounds Extremities: pedal edema Neurologic/Psychiatric: alert, oriented x 3 Skin: normal color Results/Procedures: Labs Laboratory Tests 07/16/20 03:20: White Blood Count 10.0, Red Blood Count 2.41L, Hemoglobin 7.3L, Hematocrit 23L, Mean Corpuscular Volume 95, Mean Corpuscular Hemoglobin 30, Mean Corpuscular Hemoglobin Concent 32, Red Cell Distribution Width 21.2H, Platelet Count 107L, Mean Platelet Volume 12.0H, Neutrophils (%) (Auto) 71, Lymphocytes (%) (Auto) 16, Monocytes (%) (Auto) 12, Eosinophils (%) (Auto) 0, Basophils (%) (Auto) 0, Neutrophils # (Auto) 7.1, Lymphocytes # (Auto) 1.6, Monocytes # (Auto) 1.2H, Eosinophils # (Auto) 0.0, Basophils # (Auto) 0.0, Sodium Level 139, Potassium Level 3.6, Chloride Level 105, Carbon Dioxide Level 21, Anion Gap 13, Blood Urea Nitrogen 20H, Creatinine 1.08, Estimat Glomerular Filtration Rate 49, BUN/Creatinine Ratio 19, Glucose Level 80, Calcium Level 7.5L Microbiology 07/06/20 Gram Stain - Final, Complete 07/06/20 Wound Culture - Final, Complete Mixed Bacterial Ely Proteus species Pseudomonas aeruginosa Staphylococcus aureus 07/05/20 Blood Culture - Final, Complete No growth 07/05/20 Urine Culture - Final, Complete NO GROWTH A/P: Assessment/Dx: Multifactorial shortness of breath Acute respiratory failure due to pneumonia with sepsis. Dr Reid and Dr Mcneal managing Ac on systolic CHF CAD. H/o CABG x 3 around 2004. Last card cath at [facility] on 01/11/20: Mulitvessel CAD, MUELLER patent to LAD but with 90% focal LAD past MUELLER, occluded SVG to LCX, occluded SVG to RCA, LVEF 40-45%. Last PCI on 01/12/20 at [facility]: 2.5x15 Resolute [place] to prox LCX, but complicated by the loss a high lateral branch during PCI Echo shows severe LV systolic dysfunction with an EF of 15 percent. Moderate to severe mitral regurgitation, moderate to severe tricuspid regurgitation. Chronic constipation for which she uses laxatives intermittently Mild chronic anemia that is followed by her pcp at [facility] Hyperlipidemia, treated with statins and followed by her pcp Chronic tremors, treated with primidone and followed by her pcp DJD; s/p Right THR in or around 2004; s/p Left hip repair in April 2016 Mild carotid arterial disease on carotid u/s of 05/29/19 Panic disorder Plan: * This is a complex management issue * Continue diuretics * Continue DAPT due to relatively recent coronary intervention * Continue management of cardiomyopathy with outpatient medication including Entresto. * Poor prognosis from a cardiac perspective due to severe ischemic cardiomyopathy. Thank you for your consultation. Please call me if you have any questions. Fantasma Henry MD, FACP, FACC, FSCAI, FHRS, CCDS Interventional Cardiology Cardiac Electrophysiology Vascular Medicine and Endovascular Interventions Gabby HENRY MD Jul 15, 2020 17:24
--- NOTE | 2020-07-15 18:34 | NUR ---
DRESSING CHANGED STATED IN DR HICKMAN'S PROGRESS NOTE.
[2020-07-15] MEDS: VANCOMYCIN 750 MG/NS 250 ML IVPB IV SCH ×2 (20:56)
--- NOTE | 2020-07-15 23:46 | NUR ---
RECEIVED PT FROM RICKY BAUTISTA AND RICKY HAMILTON.
[2020-07-16] VITALS: BP 101/69
[2020-07-16] MEDS: PIPERACILLIN/TAZOBACTAM (BULK) 4.5 GM in NS (IVPB) 100 ML IV SCH (01:08)
[2020-07-16 03:27] LABS: BASOPHILS % (AUTO) 0 % (0-10); EOSINOPHILS % (AUTO) 0 % (0-10); HEMATOCRIT 23 % (35-52); HEMOGLOBIN 7.3 G/DL (11.5-16.0); LYMPHOCYTES # (AUTO) 1.6 X 10^3 (1.0-4.0); LYMPHOCYTES % (AUTO) 16 % (12-44); MEAN CORPUSCULAR HEMOGLOBIN 30 PG (25-34); MEAN CORPUSCULAR HGB CONC 32 G/DL (32-36); MEAN CORPUSCULAR VOLUME 95 FL (80-99); MONOCYTES # (AUTO) 1.2 X 10^3 (0.0-1.0); MONOCYTES % (AUTO) 12 % (0-12); NEUTROPHILS # (AUTO) 7.1 X 10^3 (1.8-7.8); NEUTROPHILS % (AUTO) 71 % (42-75); PLATELET COUNT 107 10^3/uL (130-400); RED CELL DISTRIBUTION WIDTH 21.2 % (10.0-14.5)
[2020-07-16 03:35] LABS: POTASSIUM 3.6 MMOL/L (3.6-5.0)
[2020-07-16 03:37] LABS: CALCIUM 7.5 MG/DL (8.5-10.1)
[2020-07-16 03:41] LABS: CREATININE SERUM 1.08 MG/DL (0.60-1.30)
[2020-07-16 08:00] VITALS: BP 119/86
[2020-07-16] MEDS: fentaNYL INJECTION 100 MCG/2 ML AMP IVP PRN ×2 (11:52→20:00)
--- NOTE | 2020-07-16 12:42 | Progress Note - Hospitalist ---
Subjective HPI/CC On Admission Date Seen by Provider: Jul 16, 2020 Time Seen by Provider: 11:00 Subjective/Events-last exam End of life status Dr Henry and I discussed the case and he does not feel this is CHF after reviewed ECHO Patient appears very near Son in denial DPOA has made decision to place on comfort care Review of Systems Pulmonary: Dyspnea Cardiovascular: Edema Neurological: Confusion Objective Exam Vital Signs Vital Signs Date Time Temp Pulse Resp B/P (MAP) Pulse Ox O2 Delivery O2 Flow Rate FiO2 07/16/20 09:00 Nasal Cannula 2.00 07/16/20 08:21 98 07/16/20 08:00 36.4 96 22 119/86 (97) 07/13/20 09:15 28 Capillary Refill : Less Than 3 SecondsLess Than 3 Seconds General Appearance: Anxious, Chronically ill Extremity: Pedal Edema Neurologic/Psychiatric: Disoriented Results/Procedures Lab Laboratory Tests 07/16/20 03:20 Patient resulted labs reviewed. Assessment/Plan Assessment and Plan Assess & Plan/Chief Complaint Assessment: Mrsa wound Acute renal failure Hypotension End of life status Plan: Palliative care consult Wound care Supportive care Poor prognosis 07/12/20: Palliative care appreciated Hemoglobin 7.1 Family in denial about her end stage process Heplock IV fluid patient wheezing a bit today 07/13/20: Spoke to [place] HWANG Comfort care recommended Updated palliative care nurse 07/14/20: End of life care [facility]ing placement at [facility] 07/15/20: Await cardiology second opinion Monitor hemoglobin Check liver panel ECHO today 07/16/20: Comfort care protocol Clinical Quality Measures DVT/VTE Risk/Contraindication: Risk Factor Score Per Nursin RFS Level Per Nursing on Admit: 4+=Very High AILEEN MUNIZ DO Jul 16, 2020 12:42
--- NOTE | 2020-07-16 14:49 | Cardiology Progress Note ---
Cardiology SOAP Progress Note Subjective: Complaining of feeling not well. Objective: I&O/Vital Signs 07/16/20 07/16/20 07/16/20 08:00 08:21 09:00 Temp 36.4 Pulse 96 Resp 22 B/P (MAP) 119/86 (97) Pulse Ox 98 98 O2 Delivery Nasal Cannula Nasal Cannula Nasal Cannula O2 Flow Rate 2.00 2.00 2.00 07/16/20 00:00 Intake Total 1020 ml Output Total 190 ml Balance 830 ml Weight (Pounds): 169 Weight (Ounces): 5.0 Weight (Calculated Kilograms): 76.626694 Constitutional: AAO x 3 Respiratory: chest is bilaterally symmetric, other (decreased breath sounds bilaterally.) Cardiovascular: regular rate-rhythm, S1 and S2, systolic murmur Gastrointestional: soft, audible bowel sounds Extremities: pedal edema Neurologic/Psychiatric: alert, oriented x 3 Skin: normal color Results/Procedures: Labs Laboratory Tests 07/16/20 03:20: White Blood Count 10.0, Red Blood Count 2.41L, Hemoglobin 7.3L, Hematocrit 23L, Mean Corpuscular Volume 95, Mean Corpuscular Hemoglobin 30, Mean Corpuscular Hemoglobin Concent 32, Red Cell Distribution Width 21.2H, Platelet Count 107L, Mean Platelet Volume 12.0H, Neutrophils (%) (Auto) 71, Lymphocytes (%) (Auto) 16, Monocytes (%) (Auto) 12, Eosinophils (%) (Auto) 0, Basophils (%) (Auto) 0, Neutrophils # (Auto) 7.1, Lymphocytes # (Auto) 1.6, Monocytes # (Auto) 1.2H, Eosinophils # (Auto) 0.0, Basophils # (Auto) 0.0, Sodium Level 139, Potassium Level 3.6, Chloride Level 105, Carbon Dioxide Level 21, Anion Gap 13, Blood Urea Nitrogen 20H, Creatinine 1.08, Estimat Glomerular Filtration Rate 49, BUN/C reatinine Ratio 19, Glucose Level 80, Calcium Level 7.5L Microbiology 07/06/20 Gram Stain - Final, Complete 07/06/20 Wound Culture - Final, Complete Mixed Bacterial Ely Proteus species Pseudomonas aeruginosa Staphylococcus aureus 07/05/20 Blood Culture - Final, Complete No growth 07/05/20 Urine Culture - Final, Complete NO GROWTH A/P: Assessment/Dx: Multifactorial shortness of breath Acute respiratory failure due to pneumonia with sepsis. Dr Reid and Dr Mcneal managing Ac on systolic CHF CAD. H/o CABG x 3 around 2004. Last card cath at [facility] on 01/11/20: Mulitvessel CAD, MUELLER patent to LAD but with 90% focal LAD past MUELLER, occluded SVG to LCX, occluded SVG to RCA, LVEF 40-45%. Last PCI on 01/12/20 at [facility]: 2.5x15 Resolute [place] to prox LCX, but complicated by the loss a high lateral branch during PCI Echo shows severe LV systolic dysfunction with an EF of 15 percent. Moderate to severe mitral regurgitation, moderate to severe tricuspid regurgitation. Chronic constipation for which she uses laxatives intermittently Mild chronic anemia that is followed by her pcp at [facility] Hyperlipidemia, treated with statins and followed by her pcp Chronic tremors, treated with primidone and followed by her pcp DJD; s/p Right THR in or around 2004; s/p Left hip repair in April 2016 Mild carotid arterial disease on carotid u/s of 05/29/19 Panic disorder Plan: * This is a complex management issue * Continue diuretics * Continue DAPT due to relatively recent coronary intervention * Continue management of cardiomyopathy with outpatient medication including Entresto. * Poor prognosis from a cardiac perspective due to severe ischemic cardiomyopa thy. Thank you for your consultation. Please call me if you have any questions. Fantasma Henry MD, FACP, FACC, FSCAI, FHRS, CCDS Interventional Cardiology Cardiac Electrophysiology Vascular Medicine and Endovascular Interventions Gabby HENRY MD Jul 16, 2020 14:49
--- NOTE | 2020-07-16 15:05 | NUR ---
ERI PALOMARES CALLED. THE FAMILY HAS DECIDED TO GO WITH INPATIENT HOSPICE. THEY WOULD NOT BE ABLE TO VISIT THE PATIENT IF SHE GOES BACK TO THE LONGTERM UNLESS SHE IS ACTIVELY DYING. SO THEY WOULD LIKE TO LEAVE HER HERE IF THEY CAN.
--- NOTE | 2020-07-16 15:30 | NUR ---
DR MUNIZ NOTIFIED THAT DPOA CALLED WITH A DECISION. COMFORT CARE ORDERED. [facility].
[2020-07-16] MEDS ORDERED: ACETAMINOPHEN 650 MG SUPP (TYLENOL) PR PRN (15:45)
[2020-07-16] MEDS ORDERED: RT-ALBUTEROL/IPRATROPIUM 3 ML (DUONEB) VIAL INH PRN (15:45)
[2020-07-16] MEDS ORDERED: BISACODYL 10 MG SUPP (DULCOLAX) PR PRN (15:45)
[2020-07-16] MEDS ORDERED: ONDANSETRON 4 MG/2 ML (SDV) Z0FRAN IVP PRN (15:45)
[2020-07-16] MEDS ORDERED: PROMETHAZINE INJ 25 MG/ML (PHENERGAN) AMP IVP PRN (15:45)
[2020-07-16] MEDS ORDERED: SALIVA STIMULANT MOUTH SPRAY (BIOTENE) 1.5 OZ MM PRN (15:45)
[2020-07-16] MEDS ORDERED: ARTIFICAL TEARS 0.4 ML UNIT DOSE (REFRESH PLUS) OU PRN (15:45)
[2020-07-16] MEDS ORDERED: SCOPOLAMINE 1.5 MG (TRANSDERM-SCOP) PATCH TOP PRN (15:45)
--- NOTE | 2020-07-16 15:45 | NUR ---
PATIENT'S SON NOAM IN ROOM. HE IS NOT UNDERSTANDING THAT HIS MOTHER IS NOW RECEIVING COMFORT CARE AND HIS MOTHER WILL NOT BE TRANSFERRED TO [place]. STUDENT LIFE ADVISOR SONA NOTIFIED. LACQUER SIZER PAGED TO COME TALK TO SON AND BE HERE FOR THEM WHEN THE PATIENT PASSES.
[2020-07-16] MEDS: ATROPINE 1% OPHTHALMIC SOLN 2 ML SL PRN (16:09)
[2020-07-16] MEDS: LORazepam INJ 2 MG/ML (ATIVAN) VIAL IVP PRN ×2 (16:14→20:00)
--- NOTE | 2020-07-16 17:08 | NUR ---
ATTEMPTED SEVERAL TIMES TO CALL ERI PALOMARES TO UPDATE HIM ON THE PATIENT'S DETERIORATING CONDITION. THE NUMBER IS BUSY.
--- NOTE | 2020-07-16 17:14 | NUR ---
ERI PALOMARES CALLED. HE WILL START HEADING THIS WAY.
--- NOTE | 2020-07-16 17:55 | NUR ---
ATTEMPTED TO CALL DANILO BOWDEN WITH [facility] - [phone] -TO UPDATE HER ON PATIENT'S CONDITION. NO ANSWER, LEFT MESSAGE. DANILO HAS CALLED THIS RN SEVERAL TIMES OVER THE LAST COUPLE DAYS AND LEFT A MESSAGE FOR DR MUNIZ TO CHECK ON THE PATIENT
--- NOTE | 2020-07-16 17:59 | NUR ---
MESSAGE LEFT FOR DOCTOR ADELITA CASAS PATIENT'S CONDITION. [facility] NOT NOTIFIED YET DUE TO RAPIDLY DECLINING CONDITION.
--- NOTE | 2020-07-16 18:56 | NUR ---
DANILO BOWDEN CALLED TO GE AN UPDATE.
--- NOTE | 2020-07-16 18:56 | NUR ---
PER DR MUNIZ-NOTIFY [facility] IN THE MORNING IF SHE IS STILL WITH US
[2020-07-16] MEDS: GLYCOPYRROLATE 0.2 MG/ML (ROBINUL) 2 ML VIAL IV PRN (20:00)
--- NOTE | 2020-07-16 20:00 | NUR ---
PT'S SON AND DAUGHTER ARE AT BEDSIDE WHEN THIS RN ENTER'S ROOM. PT IS OBSERVED TO HAVE AIR HUNGER AND RATTLE. THIS RN EDUCATES FAMILY ON MEDICATIONS BEING GIVEN. PT SON STATES, "I THINK SHE IS COMING OUT OF THIS. JOHANNA ARGUETA THIS SUCKS." THIS RN EXPLAINS THAT PT IS NOW ON COMFORT CARES AND EDUCATES FAMILY ON PHYSICAL SYMPTOMS THAT THEY MAY OBSERVE IN THE NEXT FEW HOURS. THIS RN ALSO REASSURES FAMILY THAT THE MEDICATIONS ORDERED ARE TO MAKE THE PT COMFORTABLE WHEN EXPERIENCING AIR HUNGER, ANXIETY, PAIN, ETC. PT'S DAUGHTER VERBALIZES UNDERSTANDING. PT SON SEEMS TO BE IN DENIAL ABOUT PT'S PROGNOSIS.
[2020-07-17] MEDS: fentaNYL INJECTION 100 MCG/2 ML AMP IVP PRN ×3 (09:00→21:35)
[2020-07-17] MEDS: LORazepam INJ 2 MG/ML (ATIVAN) VIAL IVP PRN ×3 (09:00→21:34)
--- NOTE | 2020-07-17 11:17 | Progress Note - Hospitalist ---
Subjective HPI/CC On Admission Date Seen by Provider: Jul 17, 2020 Time Seen by Provider: 12:00 Subjective/Events-last exam Patient at end of life Hospice to enroll patient into inpatient hospice Son at bedside is in denial and very angry and volatile ERI Haynes updated at bedside Objective Exam Vital Signs Vital Signs Date Time Temp Pulse Resp B/P (MAP) Pulse Ox O2 Delivery O2 Flow Rate FiO2 07/17/20 09:00 98 Nasal Cannula 2.00 07/16/20 08:00 36.4 96 22 119/86 (97) 07/13/20 09:15 28 Capillary Refill : Less Than 3 SecondsLess Than 3 Seconds General Appearance: No Apparent Distress, WD/WN, Chronically ill, Other (comatose) Results/Procedures Lab Patient resulted labs reviewed. Assessment/Plan Assessment and Plan Assess & Plan/Chief Complaint Assessment: Mrsa wound Acute renal failure Hypotension End of life status Plan: Palliative care consult Wound care Supportive care Poor prognosis 07/12/20: Palliative care appreciated Hemoglobin 7.1 Family in denial about her end stage process Heplock IV fluid patient wheezing a bit today 07/13/20: Spoke to [place] HWANG Comfort care recommended Updated palliative care nurse 07/14/20: End of life care Awaiting placement at long-term 07/15/20: Await cardiology second opinion Monitor hemoglobin Check liver panel ECHO today 07/16/20: Comfort care protocol 07/17/20: Enroll into Hospice inpatient? Clinical Quality Measures DVT/VTE Risk/Contraindication: Risk Factor Score Per Nursin RFS Level Per Nursing on Admit: 4+=Very High AILEEN MUNIZ DO Jul 17, 2020 11:17
--- NOTE | 2020-07-17 14:57 | Cardiology Progress Note ---
Cardiology SOAP Progress Note Subjective: Patient is nonconversant today. Objective: I&O/Vital Signs 07/17/20 07/17/20 08:02 09:00 Pulse Ox 98 O2 Delivery Nasal Cannula Nasal Cannula O2 Flow Rate 2.00 2.00 07/17/20 00:00 Intake Total 245 ml Output Total 275 ml Balance -30 ml Weight (Pounds): 169 Weight (Ounces): 5.0 Weight (Calculated Kilograms): 76.564882 Constitutional: AAO x 3 Respiratory: chest is bilaterally symmetric, other (decreased breath sounds bilaterally.) Cardiovascular: regular rate-rhythm, S1 and S2, systolic murmur Gastrointestional: soft, audible bowel sounds Extremities: pedal edema Neurologic/Psychiatric: alert, oriented x 3 Skin: normal color Results/Procedures: Labs Microbiology 07/06/20 Gram Stain - Final, Complete 07/06/20 Wound Culture - Final, Complete Mixed Bacterial Ely Proteus species Pseudomonas aeruginosa Staphylococcus aureus 07/05/20 Blood Culture - Final, Complete No growth 07/05/20 Urine Culture - Final, Complete NO GROWTH A/P: Assessment/Dx: Multifactorial shortness of breath Acute respiratory failure due to pneumonia with sepsis. Dr Reid and Dr Mcneal managing Ac on systolic CHF CAD. H/o CABG x 3 around 2004. Last card cath at [facility] on 01/11/20: Mulitvessel CAD, MUELLER patent to LAD but with 90% focal LAD past MUELLER, occluded SVG to LCX, occluded SVG to RCA, LVEF 40-45%. Last PCI on 01/12/20 at [facility]: 2.5x15 Resolute [place] to prox LCX, but complicated by the loss a high lateral branch during PCI Echo shows severe LV systolic dysfunction with an EF of 15 percent. Moderate to severe mitral regurgitation, moderate to severe tricuspid regurgitation. Chronic constipation for which she uses laxatives intermittently Mild chronic anemia that is followed by her pcp at [facility] Hyperlipidemia, treated with statins and followed by her pcp Chronic tremors, treated with primidone and followed by her pcp DJD; s/p Right THR in or around 2004; s/p Left hip repair in April 2016 Mild carotid arterial disease on carotid u/s of 05/29/19 Panic disorder Plan: * This is a complex management issue * Continue diuretics * Continue DAPT due to relatively recent coronary intervention * Continue management of cardiomyopathy with outpatient medication including Entresto. * Poor prognosis from a cardiac perspective due to severe ischemic cardiomyopathy. Thank you for your consultation. Please call me if you have any questions. Fantasma Henry MD, FACP, FACC, FSCAI, FHRS, CCDS Interventional Cardiology Cardiac Electrophysiology Vascular Medicine and Endovascular Interventions Clinical Quality Measures Type of Care: Type of Care: Hospice (Hospital) Gabby HENRY MD Jul 17, 2020 14:57
--- NOTE | 2020-07-17 15:14 | Discharge Summary ---
Discharge Summary Hospital Course Hospital Course Date of Admission: Jul 05, 2020 at 11:19 Admission Diagnosis : Family Physician/Provider: [facility] Date of Discharge: 07/17/20 Discharge Diagnosis: [ ] Hospital Course: [ ] Labs and Pending Lab Test: Microbiology 07/06/20 Gram Stain - Final, Complete 07/06/20 Wound Culture - Final, Complete Mixed Bacterial Ely Proteus species Pseudomonas aeruginosa Staphylococcus aureus 07/05/20 Blood Culture - Final, Complete No growth 07/05/20 Urine Culture - Final, Complete NO GROWTH Home Meds Active Reported Tylenol Extra Strength (Acetaminophen) 500 Mg Tablet 500 Mg PO Q6H PRN Aldactone (Spironolactone) 25 Mg Tablet 25 Mg PO DAILY Nystatin 15 Gm Powder 1 Applic TOP Q48H APPLY TO SACRAL AREA Ibuprofen 200 Mg Capsule 400 Mg PO TID Clonazepam 0.5 Mg Tablet 0.5 Mg PO DAILY PRN Carvedilol ER (Carvedilol Phosphate) 10 Mg Cpmp.24hr 10 Mg PO DAILY GIVE WITH FOOD Senna (Sennosides) 8.6 Mg Tablet 8.6 Mg PO BID Entresto 24 mg-26 mg Tablet (Sacubitril/Valsartan) 1 Each Tablet 1 Tab PO BID Mylanta Suspension (Al Hydrox/Mg Hydrox/Simethicone) 30 Ml Oral.susp 30 Ml PO Q6H PRN Haloperidol Decanoate 100 Mg/1 Ml Vial 25 Mg IM MONTHLY Plavix (Clopidogrel Bisulfate) 75 Mg Tablet 75 Mg PO DAILY Acetaminophen 325 Mg Tablet 650 Mg PO BID Milk of Magnesia (Magnesium Hydroxide) 400 Mg/5 Ml Oral.susp 30 Ml PO DAILY PRN Aspirin EC (Aspirin) 81 Mg Tablet.dr 81 Mg PO HS Discharge Physical Examination Vital Signs Vital Signs Date Time Temp Pulse Resp B/P (MAP) Pulse Ox O2 Delivery O2 Flow Rate FiO2 07/17/20 09:00 98 Nasal Cannula 2.00 07/16/20 08:00 36.4 96 22 119/86 (97) 07/13/20 09:15 28 Allergies: Coded Allergies: clindamycin (Unverified Allergy, Unknown, 02/11/19) morphine (Verified Allergy, Unknown, 02/11/19) can take hydrocodone per pt Discharge Summary Date of Admission Jul 05, 2020 at 11:19 Date of Discharge Comfort Measures/ End of Life Care: Hospice (Hospital) Discharge Diagnosis Assessment: Mrsa wound Acute renal failure Hypotension End of life status Plan: Palliative care consult Wound care Supportive care Poor prognosis 07/12/20: Palliative care appreciated Hemoglobin 7.1 Family in denial about her end stage process Heplock IV fluid patient wheezing a bit today 07/13/20: Spoke to [place] HWANG Comfort care recommended Updated palliative care nurse 07/14/20: End of life care Awaiting placement at shelter 07/15/20: Await cardiology second opinion Monitor hemoglobin Check liver panel ECHO today 07/16/20: Comfort care protocol Clinical Quality Measures DVT/VTE Risk/Contraindication: Risk Factor Score Per Nursin RFS Level Per Nursing on Admit: 4+=Very High AILEEN MUNIZ DO Jul 17, 2020 15:14
[2020-07-17] MEDS: GLYCOPYRROLATE 0.2 MG/ML (ROBINUL) 2 ML VIAL IV PRN (21:35)
--- NOTE | 2020-07-17 22:00 | NUR ---
THIS RN ENTERS PT ROOM AT THIS TIME. BROTHER OF PT AND DAUGHTER OF PT ARE AT BEDSIDE. THIS RN STATES TO THE FAMILY, "JOEL, MYSELF, AND YANNI ARE GOING TO GET BAYLEE REPOSITIONED AND DO HER EVENING HYGIENE AT THIS TIME. WOULD YOU MIND HAVING A SEAT IN THE WAITING ROOM WHILE WE DO THIS? I WOULD LIKE TO GIVE HER MUCH PRIVACY POSSIBLE. I WILL ALSO BE CHANGING THE DRESSING ON HER NECK." BROTHER OF PT STATES, "THAT WOULD BE GREAT. THANK YOU. WE WILL JUST TAKE A SEAT OUT HERE WHILE YOU DO YOUR STUFF." PT'S FAMILY LEAVES ROOM. ORAL AND NICHOLAS CARE ARE COMPLETED AT THIS TIME. SCD'S AND HEEL PROTECTORS ARE REMOVED FOR COMFORT DUE TO SEVERE SWELLING OF PT'S EXTREMITIES. PT'S GOWN IS CHANGED. PT DOES GRIMACE WHEN WE REPOSITION HER. THIS RN ALSO NOTES AIR HUNGER. PRN MEDICATIONS ARE GIVEN FOR PT'S COMFORT. AFTER COMPLETING CARES THIS RN GOES TO THE WAITING ROOM TO RETRIEVE THE FAMILY. WHEN THIS RN ENTERS WAITING ROOM IT IS NOTED THAT THE PT'S DAUGHTER IS ON THE PHONE AT THIS TIME. THIS RN THEN TURNS TO SPEAK WITH PT'S BROTHER (ERI). DPOA IS NOTIFIED THAT PT'S RESPIRATIONS AND 02 SATURATION HAVE BEEN DECREASING THROUGHOUT THE DAY AND ARE CONTINUING TO DO SO AT THIS TIME. PT'S DAUGHTER THEN STATES, "WE ARE HAVING PEOPLE COME UP IN THE MORNING AT AFTERNOON TOMORROW. WHERE CAN THEY SIT AND WAIT?" THIS RN THEN EXPLAINS, "YOU SHOULD BE PREPARED. YOUR MOTHER'S VITAL SIGNS ARE SLOWLY WORSENING AND HAVE BEEN FOR THE PAST COUPLE OF DAYS. I AM UNSURE IF SHE WILL MAKE IT THROUGH THE NIGHT. I HAVE GIVEN HER SOME MEDICATIONS TO HELP WITH THE EXCESS SECRETIONS, AIR HUNGER, AND DISCOMFORT." PT'S DAUGHTER IS STILL ON THE PHONE SPEAKING WITH HER BROTHER (FLO). IT IS CLEAR THAT FLO IS ASKING A LARGE NUMBER OF QUESTIONS. THIS RN OFFERS TO ANSWER ANY QUESTIONS THAT FLO OR HER HAVE ABOUT THIS PROCESS. PT DAUGHTER THEN PUTS CALL ON SPEAKERPHONE. THIS RN STATES, "LAKISHA ROSSI. THIS MAYA. I AM THE NURSE TAKING CARE OF YOUR MOM THIS EVENING. I AM HAPPY TO ANSWER ANY QUESTIONS THAT YOU MAY HAVE ABOUT THIS PROCESS." FLO THEN STATES, "WELL, I DON'T KNOW HOW SHE IS ABOUT TO NOW, BECAUSE SHE WAS JUST FINE TODAY WHEN I SAW HER." THIS RN THEN EXPLAINED THAT THE PT'S VITAL SIGNS HAVE BEEN DECLINING OVER THE LAST COUPLE OF DAYS, THAT HER O2 SATURATION HAS BEEN AROUND 85% TODAY EVEN WITH THE OXYGEN. PT SON THEN YELLS, "WHATEVER! I AM COMING UP THERE RIGHT NOW!" THIS RN THEN NOTIFIES HOSPITAL WELLNESS COORDINATOR OF PT'S STATUS, CONVERSATIONS WITH THE FAMILY, AND THAT PT'S SON WAS VERY AGITATED ON THE PHONE. HOSPITAL WELLNESS COORDINATOR STATE SHE WILL ALERT SECURITY OF THE SITUATION THERE HAVE BEEN A NUMBER OF ISSUES CONCERNING THE PT'S SON.
--- NOTE | 2020-07-17 23:50 | NUR ---
THIS RN ENTERS ROOM TO ROUND ON PT. PT SON AND DAUGHTER ARE AT BEDSIDE SINGING AND CHANTING, "ONE, TWO, THREE, COUGH IT UP. COUGH IT UP. COUGH IT UP. COUGH IT UP FOR ME AND ME." THIS RN ATTEMPTS TO RE-EDUCATE FAMILY THAT PT IS UNABLE TO CLEAR SECRETIONS ON HER OWN. PT SON THEN STANDS AT PT SIDE HOLDING A TISSUE AND INSTRUCTS PT TO, "SPIT IT OUT." THIS RN THEN CALMLY REASSURES FAMILY THAT SHE UNDERSTANDS THIS IS A DIFFICULT TIME FOR THEM; UNFORTUNATELY THE PATIENT WILL NOT BE ABLE TO OVERCOME THIS. THIS RN THEN USES THERAPEUTIC COMMUNICATION TO AGAIN ATTEMPT TO EDUCATE FAMILY OF PT'S PROGNOSIS. THIS RN STATES, "YOUR MOM CAN'T COUGH UP HER SECRETIONS ON HER OWN. HER BODY IS NO LONGER WORKING THE WAY OURS DOES. SHE IS USING ALL OF HER STRENGTH TO BREATHE RIGHT NOW." SON OF PT THEN STATES, "THAT'S ENOUGH. JUST CALM DOWN. SHE JUST NEEDS A NAP. SHE LIKES TO SLEEP. EVERYTHING WILL BE FINE." THIS RN THEN STATES, "I AM VERY SORRY, FLO. I CAN SEE THAT THIS IS A VERY DIFFICULT TIME FOR YOU ALL. I NEED YOU TO UNDERSTAND THAT YOUR MOM IS ACTIVELY DYING RIGHT NOW. HER ORGANS ARE SHUTTING DOWN. THAT IS WHY WERE ARE PROVIDING COMFORT MEASURES. SO SHE CAN PASS AWAY PEACEFULLY WITHOUT PAIN AND DISCOMFORT." SON OF PT THEN STATES, "SHE PROBABLY JUST NEEDS A DRINK OF WATER. SHE HASN'T HAD ANY WATER TODAY." THIS RN THEN EXPLAINS, "FLO, IF WE WERE TO PUT WATER IN BAYLEE'S MOUTH, SHE WOULD CHOKE ON IT. REMEMBER THE SWABS WE USED YESTERDAY TO WET HER LIPS AND MOUTH DOWN? WE ARE STILL USING THOSE, BUT SHE CANNOT DRINK LIKE WE DO." SON OF PT STATES, "JUST CALM DOWN. SHE NEEDS A PILLOW UNDER HER ARM." THIS RN THEN CAREFULLY PLACES PILLOW UNDER PT'S ARM. PT GROANS WITH THE SLIGHTEST TOUCH. THIS RN THEN STATES, "DID YOU HEAR HER GROAN, FLO? AND SEE HER FACE GRIMACE? WHEN PEOPLE ARE NO LONGER ABLE TO VERBALLY TELL US ABOUT THEIR DISCOMFORT THEY USE PHYSICAL SYMPTOMS TO LET US NOW HOW THEY ARE FEELING. THIS IS WHY IT IS SO IMPORTANT TO ALLOW US TO GIVE THE MEDICATIONS ORDERED FOR HER. MY JOB IS TO KEEP HER COMFORTABLE POSSIBLE." SON THEN STATES, "IF SHES GOING TO THEN WHY GIVE HER ANYTHING? WHY DOES IT EVEN MATTER?" I STATE, "BECAUSE I WOULDN'T WANT ANYONE TO IN PAIN. WHEN OUR ORGANS AREN'T WORKING LIKE THEY ARE SUPPOSED TO OR ARE INFLAMED, THAT PART OF OUR BODY BECOMES TENDER. PAIN IS HOW OUR BODIES LET US KNOW THAT THERE IS SOMETHING WRONG. YOUR MOM'S ORGANS ARE DYING AND ARE MOST LIKELY CAUSING HER PAIN. HER JOINTS ARE STIFF. SHE IS SWOLLEN EVERYWHERE." SON OF PT STATES, "THIS IS MY MOM. I KNOW HER. YOU NEED TO ROLL HER ON HER SIDE SO SHE CAN COUGH ALL OF THE STUFF UP." THIS RN STATES, "I WOULD BE HAPPY TO REPOSITION HER ONTO HER SIDE IF THAT IS WHAT YOU WANT. I WOULD LIKE TO GIVE HER SOME PAIN MEDICATION PRIOR TO MOVING HER." SON OF PT STATES, "FINE. I GUESS THAT'S FINE. SHE DOESN'T NEED IT, BUT OK." THIS RN AND Shirley CONTRERAS REPOSITION PT REQUESTED BY FAMILY. PAIN MEDICATIONS GIVEN TO PT FOR CLEAR, PHYSICAL PAIN SYMPTOMS AND AIR HUNGER.
[2020-07-18] MEDS: GLYCOPYRROLATE 0.2 MG/ML (ROBINUL) 2 ML VIAL IV PRN ×3 (00:01→11:04)
[2020-07-18] MEDS: fentaNYL INJECTION 100 MCG/2 ML AMP IVP PRN ×3 (00:01→06:52)
[2020-07-18] MEDS: LORazepam INJ 2 MG/ML (ATIVAN) VIAL IVP PRN (03:16)
--- NOTE | 2020-07-18 10:19 | NUR ---
Chaplain mays w/ family at bedside.
--- NOTE | 2020-07-18 11:05 | NUR ---
Palliative Care RN to see patient on rounds with Dr. Marcos. Patient has been made CCMO only over the weekend and appears to have declined since Saturday when I had last seen her. She is unresponsive today, however daughter does report that she opened her eyes. Oxygen is being delivered Via NC 21 L. She is still quite edematous in her upper and lower extremity. Daughter at bedside and patient's sister arrived during assessment. Daughter is tearful but seems to have accepted the terminal condition. Will continue to follow with patient and assure her comfort is being addressed. I have received confirmation of acceptance for admission from [facility]. Will see how patient is doing tomorrow.
--- NOTE | 2020-07-18 11:50 | Progress Note ---
Subjective Subjective/Events-last exam Is not responding, per family she has opened her eyes this morning. Daughter and sister at bedside and daughter does believe patient has been comfortable. Objective Exam Last Set of Vital Signs Vital Signs Date Time Temp Pulse Resp B/P (MAP) Pulse Ox O2 Delivery O2 Flow Rate FiO2 07/18/20 09:36 Nasal Cannula 0.50 07/17/20 20:00 85 07/16/20 08:00 36.4 96 22 119/86 (97) 07/13/20 09:15 28 Capillary Refill : Less Than 3 SecondsLess Than 3 Seconds I&O Intake and Output 07/18/20 00:00 Intake Total 0 ml Output Total 230 ml Balance -230 ml Intake Oral 0 ml Output Urine Total 230 ml # Bowel Movements 1 General: Other (does not respond to voice) Lungs: Other (mildly increased work of breathing) Results/Procedures Lab Microbiology 07/06/20 Gram Stain - Final, Complete 07/06/20 Wound Culture - Final, Complete Mixed Bacterial Ely Proteus species Pseudomonas aeruginosa Staphylococcus aureus 07/05/20 Blood Culture - Final, Complete No growth 07/05/20 Urine Culture - Final, Complete NO GROWTH Assessment/Plan Assessment/Plan (1) Severe sepsis Status: Acute Assessment & Plan: 07/06: Patient continue to require pressors, + Blood culture and large decub ulcer with necrotic areas, Patient on Vanc/Zosyn 07/07: Patient maintained on pressors, eICU managing, + blood cultures for multiple staph and strep bacteria, continue Vanc/Zosyn 07/08: Off pressors this AM, Continue Vanc/Zosyn, Palliative consult as patient is not wanting cares/turning 07/09: On pressors overnight again off this morning we'll continue to monitor and transferred to the floor if she stays off the levo fed. Currently a DO NOT RESUSCITATE-on vancomycin and Zosyn 07/10: Is off pressors and is now showing evidence of fluid overload we'll give Lasix and decrease IV fluids-continue vancomycin and Zosyn 07/18 completed course of abx but has continued to decline clinically (2) Bacteremia Status: Acute Assessment & Plan: - Gram + Cocci,-MRSA and multiple other staph and strep organisms (3) Decubitus ulcer Status: Chronic Assessment & Plan: - Wound care Qualifiers: (4) Hypotension (arterial) Status: Acute Assessment & Plan: - Patient requiring pressors, admission to ICU, ppx starting antibiotics at this time due to pressures not responding to IVFs, Reviewed code status with patient and she would like to remain a DNR 07/06: Still requiring pressors this AM ; off pressors but still slightly low MA P 07/17 improved but still running low at times, cannot tolerate further fluids due to edema and respiratory insufficiency Qualifiers: Qualified Codes: I95.2 - Hypotension due to drugs (5) Normocytic anemia Status: Acute (6) Acute kidney injury Status: Resolved Assessment & Plan: - Repeat BMP 07/09: Stable with normal BUN/creatinine but recent decreased urine output (7) Dehydration Status: Resolved (8) CAD (coronary artery disease) Status: Chronic Qualifiers: Qualified Codes: I25.10 - Atherosclerotic heart disease of pauma coronary artery without angina pectoris (9) Dementia Status: Chronic Qualifiers: Qualified Codes: F03.91 - Unspecified dementia with behavioral disturbance (10) HTN (hypertension) Status: Chronic Assessment & Plan: - Holding home meds due to hypotension Qualifiers: Qualified Codes: I10 - Essential (primary) hypertension (11) Acute on chronic combined systolic (congestive) and diastolic (congestive) heart failure Status: Acute Assessment & Plan: Cardiology consulted, appreciate recommendations. EF 15% (12) Goals of care, counseling/discussion Status: Acute Assessment & Plan: Over the weekend, patient had continued decline and status was changed to comfort care. Discussed/reviewed with daughter and sister who were at bedside today who express understanding of goals of care- comfort rather than resolution, and that if she remains stable but in critical condition, may need transfer to nursing facility for hospice. Clinical Quality Measures DVT/VTE Risk/Contraindication: Risk Factor Score Per Nursin RFS Level Per Nursing on Admit: 4+=Very High BATSHEVA MAYS MD Jul 18, 2020 11:50
[2020-07-18] MEDS: ATROPINE 1% OPHTHALMIC SOLN 2 ML SL PRN (13:00)
--- NOTE | 2020-07-18 14:04 | NUR ---
Palliative Care RN called and spoke to Nba, patient's son regarding visiting hours. Apparently they were allowed to have two in the room last night after making her CCMO. Today they were told kylah one at a time but more than one could visit. I explained him the Hospital Policy regarding visitor at the EOL. He did not argue it. He then asked about the 2nd opinion explaining that Dr. Henry said he could not do 2nd opinion..I did not get much into this due to it being a between doctor issue. I explained to him what Dr Henry found in his assessment. Will continue to follow and offer assist.
[2020-07-19] MEDS: GLYCOPYRROLATE 0.2 MG/ML (ROBINUL) 2 ML VIAL IV PRN ×2 (02:11→08:55)
[2020-07-19] MEDS: fentaNYL INJECTION 100 MCG/2 ML AMP IVP PRN (08:55)
--- NOTE | 2020-07-19 10:30 | NUR ---
PALLIATIVE CARE RN in to see patient. Son, Nba, is at bedside. He is reporting that she spoke to him last night, and is anxious for her to "wake up" this morning. She is not responsive to this RN except that her respirations did increase when spoken to. Patient moaned and her said "see" indicating this was her was of speaking". He has turned on the lights in the room giving her more of a prompt to wake for the day. Patient is resting with her glasses on her face, respirations are irregular with O2 by NC @ 2L. She has very venus cheeks and her ear is red and starting to thin. I see no mottling in her LE but she is cool to the touch in her hands and feet. Anticipate another 24-48 hours before patient passes.
--- NOTE | 2020-07-19 11:35 | Progress Note ---
Subjective Subjective/Events-last exam Son reports she was more responsive overnight, but nursing states she has only moaned and had no meaningful responses per their exams. Son does feel pain is managed at this time. Objective Exam Last Set of Vital Signs Vital Signs Date Time Temp Pulse Resp B/P (MAP) Pulse Ox O2 Delivery O2 Flow Rate FiO2 07/19/20 08:50 Nasal Cannula 2.00 07/17/20 20:00 85 07/16/20 08:00 36.4 96 22 119/86 (97) 07/13/20 09:15 28 Capillary Refill : Less Than 3 SecondsLess Than 3 Seconds I&O Intake and Output 07/19/20 00:00 Intake Total 0 ml Output Total 150 ml Balance -150 ml Intake Oral 0 ml Output Urine Total 150 ml # Voids 1 General: Other (sonorous breathing with chin lax) Lungs: Other (ronchi) Extremities: Other (2+ edema) Psych/Mental Status: Other (does not respond or open eyes to voice) Results/Procedures Lab Microbiology 07/06/20 Gram Stain - Final, Complete 07/06/20 Wound Culture - Final, Complete Mixed Bacterial Ely Proteus species Pseudomonas aeruginosa Staphylococcus aureus 07/05/20 Blood Culture - Final, Complete No growth 07/05/20 Urine Culture - Final, Complete NO GROWTH Assessment/Plan Assessment/Plan (1) Severe sepsis Status: Acute Assessment & Plan: 07/06: Patient continue to require pressors, + Blood culture and large decub ulcer with necrotic areas, Patient on Vanc/Zosyn 07/07: Patient maintained on pressors, eICU managing, + blood cultures for multiple staph and strep bacteria, continue Vanc/Zosyn 07/08: Off pressors this AM, Continue Vanc/Zosyn, Palliative consult as patient is not wanting cares/turning 07/09: On pressors overnight again off this morning we'll continue to monitor and transferred to the floor if she stays off the levo fed. Currently a DO NOT RESUSCITATE-on vancomycin and Zosyn 07/10: Is off pressors and is now showing evidence of fluid overload we'll give Lasix and decrease IV fluids-continue vancomycin and Zosyn 07/18 completed course of abx but has continued to decline clinically 07/19 continuing comfort care (2) Bacteremia Status: Acute Assessment & Plan: - Gram + Cocci,-MRSA and multiple other staph and strep organisms (3) Decubitus ulcer Status: Chronic Assessment & Plan: - Wound care Qualifiers: (4) Hypotension (arterial) Status: Acute Assessment & Plan: - Patient requiring pressors, admission to ICU, ppx starting antibiotics at this time due to pressures not responding to IVFs, Reviewed code status with patient and she would like to remain a DNR 07/06: Still requiring pressors this AM ; off pressors but still slightly low MA P 07/18 improved but still running low at times, cannot tolerate further fluids due to edema and respiratory insufficiency 07/19 on comfort care, not routinely monitoring Qualifiers: Qualified Codes: I95.2 - Hypotension due to drugs (5) Normocytic anemia Status: Acute (6) Acute kidney injury Status: Resolved Assessment & Plan: - Repeat BMP 07/09: Stable with normal BUN/creatinine but recent decreased urine output (7) Dehydration Status: Resolved (8) CAD (coronary artery disease) Status: Chronic Qualifiers: Qualified Codes: I25.10 - Atherosclerotic heart disease of [place] coronary artery without angina pectoris (9) Dementia Status: Chronic Qualifiers: Qualified Codes: F03.91 - Unspecified dementia with behavioral disturbance (10) HTN (hypertension) Status: Chronic Assessment & Plan: - Holding home meds due to hypotension Qualifiers: Qualified Codes: I10 - Essential (primary) hypertension (11) Acute on chronic combined systolic (congestive) and diastolic (congestive) heart failure Status: Acute Assessment & Plan: Cardiology consulted, appreciate recommendations. EF 15% (12) Goals of care, counseling/discussion Status: Acute Assessment & Plan: Over the weekend, patient had continued decline and status was changed to comfort care. Discussed/reviewed with daughter and sister who were at bedside 07/18 who express understanding of goals of care- comfort rather than resolution, and that if she remains stable but in critical condition, may need transfer to nursing facility for hospice. Clinical Quality Measures DVT/VTE Risk/Contraindication: Risk Factor Score Per Nursin RFS Level Per Nursing on Admit: 4+=Very High BATSHEVA MAYS MD Jul 19, 2020 11:35
--- NOTE | 2020-07-19 14:29 | NUR ---
PALLIATIVE CARE RN has discovered today that patient had signed on to [facility] on 07/17/2020 and is now considered GIP. I have spoken with Chandu GARCÍA from [facility] and her Superintendent Job Gisela to determine the specifics. Patient will continue to be on [facility] until she discharges or passes.
--- NOTE | 2020-07-21 08:56 | NUR ---
PALLIATIVE CARE RN in to see patient. She remains unresponsive to voice and touch. Son is at bedside and continues to be dismissive of the fact that she is dying. He has gone so far as to call her doctor in [place] and has told me to expect a phone call. Patient appears much more comfortable this morning. Her respirations are irregular in that they are apneic but still 15-20 a minute,I do not hear noisy respirations this morning. Her cheeks are less venus and she appears to be less edematous. I have spoken to her real estate director at [facility]. Told her that the plan was to discharge her to [facility] today possibly. She will talk to her management and call me back with the decision to allow her to remain in the hospital or discharge her to [facility].
--- NOTE | 2020-07-21 11:08 | NUR ---
DISCHARGE PLAN: Patient will discharge today to new placement at [facility] he will continue on [facility] for EOL care. [place], brother/DPOA, is on board with discharge with continued hospice care. Son is not on board with the discharge as he does not fully acknowledge that she is dying. Will send orders once they are ready. EMS will transport.
--- NOTE | 2020-07-21 12:26 | Discharge Summary ---
Discharge Summary Hospital Course Problems/Diagnosis: (1) Severe sepsis Status: Acute Assessment & Plan: 07/06: Patient continue to require pressors, + Blood culture a nd large decub ulcer with necrotic areas, Patient on Vanc/Zosyn 07/07: Patient maintained on pressors, eICU managing, + blood cultures for multiple staph and strep bacteria, continue Vanc/Zosyn 07/08: Off pressors this AM, Continue Vanc/Zosyn, Palliative consult as patient is not wanting cares/turning 07/09: On pressors overnight again off this morning we'll continue to monitor and transferred to the floor if she stays off the levo fed. Currently a DO NOT RESUSCITATE-on vancomycin and Zosyn 07/10: Is off pressors and is now showing evidence of fluid overload we'll give Lasix and decrease IV fluids-continue vancomycin and Zosyn 07/18 completed course of abx but has continued to decline clinically 07/19 continuing comfort care (2) Bacteremia Status: Acute Assessment & Plan: - Gram + Cocci,-MRSA and multiple other staph and strep organisms (3) Decubitus ulcer Status: Chronic Assessment & Plan: - Wound care Qualifiers: (4) Hypotension (arterial) Status: Acute Assessment & Plan: - Patient requiring pressors, admission to ICU, ppx starting antibiotics at this time due to pressures not responding to IVFs, Reviewed code status with patient and she would like to remain a DNR 07/06: Still requiring pressors this AM ; off pressors but still slightly low MA P 07/18 improved but still running low at times, cannot tolerate further fluids due to edema and respiratory insufficiency 07/19 on comfort care, not routinely monitoring Qualifiers: Qualified Codes: I95.2 - Hypotension due to drugs (5) Normocytic anemia Status: Acute (6) Acute kidney injury Status: Resolved Resolution Date/Time: 07/06/20 @ 20:26 Assessment & Plan: - Repeat BMP 07/09: Stable with normal BUN/creatinine but recent decreased urine output (7) Dehydration Status: Resolved Resolution Date/Time: 07/06/20 @ 20:26 (8) CAD (coronary artery disease) Status: Chronic Qualifiers: Qualified Codes: I25.10 - Atherosclerotic heart disease of [place] coronary artery without angina pectoris (9) Dementia Status: Chronic Qualifiers: Qualified Codes: F03.91 - Unspecified dementia with behavioral disturbance (10) HTN (hypertension) Status: Chronic Assessment & Plan: - Holding home meds due to hypotension Qualifiers: Qualified Codes: I10 - Essential (primary) hypertension (11) Acute on chronic combined systolic (congestive) and diastolic (congestive) heart failure Status: Acute Assessment & Plan: Cardiology consulted, appreciate recommendations. EF 15% (12) Goals of care, counseling/discussion Status: Acute Assessment & Plan: Over the weekend, patient had continued decline and status was changed to comfort care. Discussed/reviewed with daughter and sister who were at bedside 07/18 who express understanding of goals of care- comfort rather than resolution, due to persistent non-responsiveness but without rapid decline, patient was discharged to [facility] hosp[facility] care. Hospital Course Date of Admission: Jul 05, 2020 at 11:19 Admission Diagnosis : Family Physician/Provider: Garcia/Marcelle,[facility] Date of Discharge: 07/21/20 Discharge Diagnosis: See problem list Hospital Course: See problem list Labs and Pending Lab Test: Microbiology 07/06/20 Gram Stain - Final, Complete 07/06/20 Wound Culture - Final, Complete Mixed Bacterial Ely Proteus species Pseudomonas aeruginosa Staphylococcus aureus 07/05/20 Blood Culture - Final, Complete No growth 07/05/20 Urine Culture - Final, Complete NO GROWTH Home Meds Active Reported Tylenol Extra Strength (Acetaminophen) 500 Mg Tablet 500 Mg PO Q6H PRN Aldactone (Spironolactone) 25 Mg Tablet 25 Mg PO DAILY Nystatin 15 Gm Powder 1 Applic TOP Q48H APPLY TO SACRAL AREA Ibuprofen 200 Mg Capsule 400 Mg PO TID Clonazepam 0.5 Mg Tablet 0.5 Mg PO DAILY PRN Carvedilol ER (Carvedilol Phosphate) 10 Mg Cpmp.24hr 10 Mg PO DAILY GIVE WITH FOOD Senna (Sennosides) 8.6 Mg Tablet 8.6 Mg PO BID Entresto 24 mg-26 mg Tablet (Sacubitril/Valsartan) 1 Each Tablet 1 Tab PO BID Mylanta Suspension (Al Hydrox/Mg Hydrox/Simethicone) 30 Ml Oral.susp 30 Ml PO Q6H PRN Haloperidol Decanoate 100 Mg/1 Ml Vial 25 Mg IM MONTHLY Plavix (Clopidogrel Bisulfate) 75 Mg Tablet 75 Mg PO DAILY Acetaminophen 325 Mg Tablet 650 Mg PO BID Milk of Magnesia (Magnesium Hydroxide) 400 Mg/5 Ml Oral.susp 30 Ml PO DAILY PRN Aspirin EC (Aspirin) 81 Mg Tablet. 81 Mg PO HS Assessment/Pt DC Instructions Discharged on hospice care to [facility]. Discharge Physical Examination Allergies: Coded Allergies: clindamycin (Unverified Allergy, Unknown, 02/11/19) morphine (Verified Allergy, Unknown, 02/11/19) can take hydrocodone per pt General Appearance: Other (unresponsive to voice or touch) Clinical Quality Measures DVT/VTE Risk/Contraindication: Risk Factor Score Per Nursin RFS Level Per Nursing on Admit: 4+=Very High BATSHEVA MAYS MD Jul 21, 2020 12:26
--- NOTE | 2020-07-21 14:20 | NUR ---
RIGHT IJ IV DC'D. SITE CLEAR.
--- NOTE | 2020-07-21 14:30 | NUR ---
DISCHARGED PER AMBULANCE WITH [facility]. REPORT GIVEN TO AGATA GARCÍA AT [facility]. LETHARGIC. DAUGHTER AT BEDSIDE.
--- NOTE | 2020-07-21 14:48 | NUR ---
DISCHARGE PLAN: I have received confirmation that all DME is set up at [facility]. EMS has been dispatched just waiting for their arrival. Over the course of the day patient has continued to delcine in her respiratory status. She appears to be within hours of passing.
== END 2020-07-21 14:30 | disposition hospice, inpatient (51) | DRG 853 ==
LOC: EDUNIT# 09:07 → ER 09:08 → ICU 11:19 → 4TH 07-09 15:05
PROVIDERS: ADMIT Family Medicine; ATTEND Family Medicine
PROC: 0JB70ZZ Excision of Back Subcutaneous Tissue and Fascia, Open Approach (ICD-10-PCS; principal; 2020-07-06)
DX: A41.01 Sepsis due to Methicillin susceptible Staphylococcus aureus (principal); J18.9 Pneumonia, unspecified organism; J96.00 Acute respiratory failure, unspecified whether with hypoxia or hypercapnia; I50.43 Acute on chronic combined systolic (congestive) and diastolic (congestive) heart failure; N17.9 Acute kidney failure, unspecified; R65.20 Severe sepsis without septic shock; E86.0 Dehydration; L89.152 Pressure ulcer of sacral region, stage 2; I25.10 Atherosclerotic heart disease of native coronary artery without angina pectoris; Z66 Do not resuscitate; I11.0 Hypertensive heart disease with heart failure; F03.90 Unspecified dementia, unspecified severity, without behavioral disturbance, psychotic disturbance, mood disturbance, and anxiety; G25.0 Essential tremor; R63.0 Anorexia; I48.91 Unspecified atrial fibrillation; E78.00 Pure hypercholesterolemia, unspecified; K21.9 Gastro-esophageal reflux disease without esophagitis; Z51.5 Encounter for palliative care; K59.09 Other constipation; M19.91 Primary osteoarthritis, unspecified site; F41.9 Anxiety disorder, unspecified; F32.9 Major depressive disorder, single episode, unspecified; Z96.643 Presence of artificial hip joint, bilateral; K59.00 Constipation, unspecified; D64.9 Anemia, unspecified; E78.5 Hyperlipidemia, unspecified; M19.90 Unspecified osteoarthritis, unspecified site; Z95.1 Presence of aortocoronary bypass graft
CPT/HCPCS: 36415; 51702; 71045; 76770; 80048; 80053; 80076; 80202; 81000; 82728; 82805; 83540; 83605; 83735; 83880; 84100; 84134; 84145; 84484; 85025; 85027; 85379; 85610; 85652; 85730; 86141; 87040; 87070; 87077; 87081; 87088; 87186; 87205; 87635; 93005; 93306; 94640; 94664; 94760; 96361; 96374; 96375; 99291